=== PATIENT | female | born 1940 | race Caucasian/White ===

== ENCOUNTER → 2017-08-07 13:11 | Outpatient (CLI) | payer MEDICARE, SELFPAY ==
[2017-08-07 12:17] LABS: BUN 26 mg/dL (7-18); Creatinine, Serum 1.13 mg/dL (0.55-1.02); EST Glomerular Filtration Rate 50 mL/min (>60); Glucose 80 mg/dL (70-110)
[2017-08-07 12:18] LABS: Anion Gap 8 (5-15); Calcium,Total 8.8 mg/dL (8.5-10.1); Chloride 102 mmol/L (98-107); Est Glom Filt Rate - Afr Amer 60 mL/min (>60); Potassium 4.2 mmol/L (3.5-5.1); Sodium Level 139 mmol/L (136-145)
== END ==
PROVIDERS: Family Provider Internal Medicine; PCP Internal Medicine; Visit Provider Internal Medicine
DX: I42.9 Cardiomyopathy, unspecified (principal)
CPT/HCPCS: 80048

== ENCOUNTER → 2017-10-14 09:16 | Outpatient (CLI) | payer MEDICARE, SELFPAY ==
--- NOTE | 2017-10-14 09:18 | HPBI_ITS ---
MAMMOGRAPHY - BILATERAL SCREENING REASON FOR EXAM: Female, 77 years old. Routine annual screening examination. PERTINENT HISTORY: Sister with breast cancer. TECHNIQUE: Digital bilateral breast carlos (3D mammographic acquisition) in the CC and MLO projections. 2-D mediolateral oblique (MLO) and craniocaudad (CC) views of both breasts were obtained. CAD: Full Field Digital Mammography with Computer Added Detection was performed. COMPARISON: Comparison is made with prior study dated September 26, 2016 and July 09, 2012. FINDINGS: Breast Composition: There are scattered areas of fibroglandular density. There are no dominant masses or suspicious calcifications. Once again, a pacemaker battery pack is seen in the left axillary region. No other significant abnormalities are identified. There has been no significant change since the prior study. HPBI/SCREENING MAMM (CAD), BILAT IMPRESSION: Stable bilateral screening mammogram. Yearly follow-up mammogram recommended. (A) ASSESSMENT CATEGORY: BIRADS Category 2: Benign. A letter regarding these results will be sent to the patient by the facility within 30 days. Approximately 10% of breast cancers are not detected by mammography. A normal mammogram should not delay biopsy of a clinically suspicious abnormality. [id number] Electronically Signed: Ed Fink MD at 11:10 EST Tel [phone], Service support ,
== END ==
PROVIDERS: Family Provider Internal Medicine; PCP Internal Medicine; Visit Provider Internal Medicine
DX: Z12.31 Encounter for screening mammogram for malignant neoplasm of breast (principal); Z80.3 Family history of malignant neoplasm of breast
CPT/HCPCS: 77063; 77067

== ENCOUNTER → 2017-10-27 09:50 | Outpatient (CLI) | payer MEDICARE, SELFPAY ==
--- NOTE | 2017-10-27 09:52 | VDLE_ITS ---
Reason For Study: F/U LLE DVT RIGHT LEFT CFV is compressible, spontaneous, phasic, CFV and FV are partially compressible with competent and demonstrates normal bright intraluminal echoes consistant with augmentation. chronic clot Procedure GSV harvested. Exam performed in department. POP V is compressible, spontaneous, phasic, A preliminary report was called and/or faxed competent and demonstrates normal to Dr. Martin. augmentation. T/P Trunk is compressible. PTV is compressible. LT PerV is compressible. Interpretation Summary Chronic deep venous thrombosis left common femoral and femoral veins. Harvested left great saphenous vein. Normal flow patterns right common femoral vein. Ordering Physician: Minerva Martin Referring Physician: Minerva Martin Performed By: Sheridan Acuna RVT
[2017-10-27 14:31] LABS: Albumin, Serum 4.1 g/dL (3.2-5.0); BUN 43 mg/dL (7-18); BUN/Creat Ratio 28.3 RATIO (10-20); Creatinine, Serum 1.52 mg/dL (0.55-1.02); EST Glomerular Filtration Rate 35 mL/min (>60); Est Glom Filt Rate - Afr Amer 43 mL/min (>60); Globulin 4.4 g/dL (2.2-4.2); Glucose 91 mg/dL (74-106); Protein, Total 8.5 g/dL (6.4-8.2); Uric Acid 10.9 mg/dL (2.6-6.0)
[2017-10-27 14:32] LABS: ALB/GLOB Ratio 0.9 RATIO (0.9-2.4); AST(SGOT) 28 U/L (15-37); Alanine Aminotransfer ALT/SGPT 23 U/L (13-56); Alkaline Phosphatase 79 U/L (45-117); Anion Gap 8 (5-15); Calcium,Total 9.6 mg/dL (8.5-10.1); Chloride 95 mmol/L (98-107); Potassium 3.6 mmol/L (3.5-5.1); Sodium Level 136 mmol/L (136-145)
== END ==
PROVIDERS: Family Provider Internal Medicine; PCP Internal Medicine; Visit Provider Internal Medicine
DX: I82.422 Acute embolism and thrombosis of left iliac vein (principal); E87.6 Hypokalemia
CPT/HCPCS: 36415; 80053; 84100; 84550; 93971

== ENCOUNTER → 2018-03-19 15:16 | Outpatient (CLI) | payer MEDICARE, SELFPAY | PROVIDERS: Family Provider Internal Medicine; PCP Internal Medicine; Visit Provider Nurse Practitioner Acute Care | DX: G47.33 Obstructive sleep apnea (adult) (pediatric) (principal) | CPT/HCPCS: 98960; G0463 ==

== ENCOUNTER 2018-06-18 10:49 | Inpatient (IN) | payer OTHER, MEDICARE, SELFPAY ==
[2018-06-18] VITALS (20 sets, daily range): BP systolic 55–115; BP diastolic 36–80; PULSE 77–95; RESP 10–35; TEMP 36.3–36.5; O2SAT 93–100; BMI 25.1; BMI 29.4
--- NOTE | 2018-06-18 08:25 | THRO_PTH ---
PATIENT: IRIS DAVENPROT LOC: [facility] U#:[id number] AGE/SX: 78/F ROOM: [facility] RE06/18/[address]: Dr. Nerissa Bhat MD : [id number] BED: 1 DIS: 06/23/2018 SPEC #: [id number] RECD: 06/19/18 09:01 STATUS: REYES CLAY #: [id number] SELENA: 06/18/18 08:[address]: Jalil Ferreira DEPT: SURGICAL PATHOLOGY RECD BY: Jabier Biggs ENTERED: 06/19/18 09:30 SP TYPE: THROMBUS OTHR DR: MD Dr. Minerva Wall MD Dr. Derek Brown, DO Dr. David Kittoe, MD Dr. James A Slaby, MD Tissues: BLOOD CLOT, NOS Procedures: Surgery Specimen Level III Comments: @ Ordering doctor for SUIII edited from to @ by KATHLEEN at 06/19/18 1414 @ Submitting doctor edited from to @ by RGOOD at 06/19/18 1414 HEADER OPERATION: Surgical preparation right knee with incision and drainage PRE-OP DIAGNOSIS: Hematoma right knee TISSUE SUBMITTED: Hematoma right knee MICROSCOPIC DIAGNOSIS Hematoma right knee: Skin with underlying tissue with blood clot and separate blood clots, clinical hematoma right knee. ELLA:tyrese 06/22/18 MICROSCOPIC DESCRIPTION Slides are reviewed. GROSS DESCRIPTION Received is one container labeled with the patient name and designated hematoma right knee. The specimen consists of multiple pieces of skin with underlying tissue and blood clots that in aggregate measure 15 x 4 x 4 cm. Some of the pieces of skin showed blood clots in the deeper portion of the tissue. No mass lesion is identified. Locomotive Switch Operator sections are submitted in 2 cassettes. / ELLA:tyrese 06/19/18 TC: 5 CPT:79317
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
[2018-06-18 11:38] LABS: International Normalized Ratio 1.4; Prothrombin Time (Protime)PT. 17.1 SECONDS (11.7-14.9)
[2018-06-18 11:39] LABS: Partial Thromboplast Time 27.7 Seconds (24.1-36.2)
[2018-06-18 11:41] LABS: Absolute Lymphocyte Count 1.12 X10^3/ul (0.83-4.51); Absolute Neutrophil Count 6.3 X10^3/uL (2.0-7.7); Basophil# 0.04 X10^3/uL; Basophil% 0.5 % (0-1); Eosinophil# 0.38 X10^3/uL; Eosinophils% 4.5 % (0-5); Hematocrit 39.6 % (37-47); Hemoglobin 12.8 g/dl (12.0-15.0); Lymphocyte # 1.12 X10^3/ul (4.0); Lymphocyte % 13.1 % (19-41); Mean Corp Hgb Conc 32.3 g/gl (32-36); Mean Corpuscular Hgb 32.2 pg (27.0-32.0); Mean Corpuscular Volume 99.7 fL (81-99); Mean Platelet Vol. 10.2 fl (6.2-12.0); Monocyte# 0.58 X10^3/uL; Monocyte% 6.8 % (0-10); Neutrophil % 73.9 % (47-70); POSITIVE COUNT NO; POSITIVE DIFFERENTIAL NO; POSITIVE MORPHOLOGY NO; Platelet Count 234 K/mm3 (150-450); RBC Distribution Width CV 14.9 % (11.6-14.6); RBC Distribution Width SD 53.1 fl (35.1-43.9); Red Blood Count 3.97 M/mm3 (4.2-5.4); White Blood Count 8.5 K/mm3 (4.4-11.0)
[2018-06-18 11:45] LABS: AST(SGOT) 30 U/L (15-37); Alanine Aminotransfer ALT/SGPT 26 U/L (13-56); Albumin, Serum 3.7 g/dL (3.2-5.0); Alkaline Phosphatase 78 U/L (45-117); Anion Gap 7 (5-15); BUN 54 mg/dL (7-18); BUN/Creat Ratio 31.2 RATIO (10-20); Bilirubin, Direct 0.14 mg/dL (0.00-0.30); Chloride 94 mmol/L (98-107); Creatinine, Serum 1.73 mg/dL (0.55-1.02); EST Glomerular Filtration Rate 30 mL/min (>60); Est Glom Filt Rate - Afr Amer 37 mL/min (>60); Estimated Creatinine Clearance 29.92 ml/min; Globulin 4.3 g/dL (2.2-4.2); Glucose 113 mg/dL (74-106); Potassium 3.3 mmol/L (3.5-5.1); Sodium Level 136 mmol/L (136-145)
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
[2018-06-18] MEDS: 0.9% Normal Saline 1,000 ML 999 ML IV (12:25)
[2018-06-18] MEDS: fentaNYL 100 MCG/2 ML Ampul 50 MCG IV ×3 (12:25→14:24)
[2018-06-18] MEDS: Ondansetron 4 MG/2 ML Vial IV (12:25)
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
--- NOTE | 2018-06-18 15:55 | NURSING ---
PCU WHITE RIB FXS, KNEE HEMATOMA
--- NOTE | 2018-06-18 16:40 | NURSING ---
SURGERY WITH DR FAULKNER
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
--- NOTE | 2018-06-18 16:43 | ED.RN ---
REPORT GIVEN TO JOSSE LARA. APOLOGIZED FOR PRE-OP NOT BEING COMPLETED.
[2018-06-18] MEDS: Cefazolin 2 GM in 0.9% Normal Saline 100 ML IV (18:01)
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
[2018-06-18] MEDS: Propofol 10MG/Ml 1,000 MG/100 ML Bottle 10.236 MG CONT INF (19:16)
[2018-06-18 19:45] LABS: Base Excess 9 mmol/L (-2 to +2); Bicarbonate 31.2 mmol/L (22-26); Blood Gas Specimen Type ALINE; FI02 50; Mode A-C; O2 Delivery Device Vent; PEEP 5; PO2 143 mmHG (75-100); RR 10; SITE OTHER; SO2 99 % (95-99); Time Given 1930; Total Carbon Dioxide 32 mmol/L; Vt 600; pCO2 36.5 mmHg (35-45); pH 7.54 (7.35-7.45)
[2018-06-18] MEDS: 0.9% Normal Saline 1,000 ML 75 ML IV (19:50)
--- NOTE | 2018-06-18 20:25 | RAD_ITS ---
STUDY: X-RAY CHEST REASON FOR EXAM: Female, 78 years old. Line placement. TECHNIQUE: Single AP portable view of the chest. COMPARISON: 03/31/2017. FINDINGS: There is an endotracheal tube terminating 3.4 cm above the fab. Moderate lung volumes. Atelectasis or infiltrate seen in both lung bases, worse on the left. Probable small left pleural effusion. Sternal cerclage wires and vascular clips are present from a prior sternotomy and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 bypass graft procedure (CABG). Normal heart size. Pacemaker leads terminate in the right ventricle. Normal mediastinum and juana. Normal visualized pulmonary arteries. Normal visualized aortic arch and descending thoracic aorta. Normal visualized thoracic spine. Normal visualized ribs, clavicles, and shoulders. There is no demonstrated abnormality of the visualized soft tissue structures of the upper abdomen. RAD/CXR for Line Placement IMPRESSION: Endotracheal tube in satisfactory position. Moderate lung volumes with atelectasis or infiltrate in both lung bases worse on the left and with a small left pleural effusion. Electronically Signed: Mele Brown MD at 21:14 EST , Service support ,
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
--- NOTE | 2018-06-18 20:38 | EKG12_ITS ---
Test Reason : ADM EKG Blood Pressure : / mmHG Vent. Rate : 090 BPM Atrial Rate : 090 BPM P-R Int : 246 ms QRS Dur : 132 ms QT Int : 424 ms P-R-T Axes : 071 -10 150 degrees QTc Int : 518 ms Sinus rhythm with 1st degree A-V block with occasional Premature ventricular complexes Non-specific intra-ventricular conduction block T wave abnormality, consider inferior ischemia T wave abnormality, consider anterolateral ischemia Abnormal ECG When compared with ECG of 31-MAR-2017 01:24, Premature ventricular complexes are now Present MA interval has increased T wave inversion now evident in Inferior leads T wave inversion now evident in Anterior leads Confirmed by OLY COTTO ([id number]), assignment desk editor CAROLEE MARIEE ([id number]) on 06/22/2018 2:54:43 PM Referred By: Jalil Ferreira Confirmed By:OLY COTTO
[2018-06-18 20:45] LABS: Magnesium 2.5 mg/dL (1.6-2.6); T4 Free Direct 1.53 ng/dL (0.76-1.46); Thyroid Stim Hormone (TSH) 2.48 uIU/mL (0.358-3.74)
[2018-06-18] MEDS: Hydrocortisone Sod Succinate 100 MG/2 ML Vial IV (20:47)
[2018-06-18] MEDS: fentaNYL drip 100 ML 2.5 MCG IV (20:55)
[2018-06-18 21:09] LABS: Hematocrit 31.9 % (37-47); Hemoglobin 10.4 g/dl (12.0-15.0)
--- NOTE | 2018-06-18 22:13 | NURSING ---
Received written order from Dr. Dennis to start propofol gtt at 20 mcg/kg/min with no titration parameters. Propofol started at 1916 at 20 mcg/kg/min, patient became hypotensive. Order was received from Dr. Albarado at 1932 to stop the propofol, and may resume when hypotension resolves, see med titration orders.
[2018-06-18 22:47] LABS: CPK Total, Creatine Kinase 724 U/L (26-192); Triglycerides 80 mg/dL
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
[2018-06-19] VITALS (26 sets, daily range): BP systolic 79–131; BP diastolic 47–105; PULSE 85–99; RESP 10–28; TEMP 36.4–37.1; O2SAT 94–100
[2018-06-19 05:43] LABS: Anion Gap 15 (5-15); BUN 51 mg/dL (7-18); BUN/Creat Ratio 30.2 RATIO (10-20); Calcium,Total 8.4 mg/dL (8.5-10.1); Chloride 102 mmol/L (98-107); Creatinine, Serum 1.69 mg/dL (0.55-1.02); EST Glomerular Filtration Rate 31 mL/min (>60); Est Glom Filt Rate - Afr Amer 38 mL/min (>60); Estimated Creatinine Clearance 27.54 ml/min; Glucose 156 mg/dL (74-106); Sodium Level 140 mmol/L (136-145)
--- NOTE | 2018-06-19 05:55 | EKG12_ITS ---
Test Reason : AM EKG Blood Pressure : / mmHG Vent. Rate : 095 BPM Atrial Rate : 054 BPM P-R Int : 000 ms QRS Dur : 140 ms QT Int : 538 ms P-R-T Axes : 000 -04 085 degrees QTc Int : 676 ms Normal sinus rhythm with Premature ventricular complexes Left atrial enlargement Non-specific intra-ventricular conduction block Nonspecific T wave abnormality Abnormal ECG When compared with ECG of 18-JUN-2018 20:13, MANUAL COMPARISON REQUIRED, DATA IS UNCONFIRMED Confirmed by OLY COTTO ([id number]), non linear editor CAROLEE MARIEE ([id number]) on 06/22/2018 2:55:56 PM Referred By: Jalil Ferreira Confirmed By:OLY COTTO
[2018-06-19 05:59] LABS: Absolute Lymphocyte Count 0.58 X10^3/ul (0.83-4.51); Absolute Neutrophil Count 8.7 X10^3/uL (2.0-7.7); Basophil# 0.01 X10^3/uL; Basophil% 0.1 % (0-1); Hematocrit 30.5 % (37-47); Hemoglobin 10.2 g/dl (12.0-15.0); Lymphocyte # 0.58 X10^3/ul (4.0); Mean Corp Hgb Conc 33.4 g/gl (32-36); Mean Corpuscular Hgb 32.9 pg (27.0-32.0); Mean Corpuscular Volume 98.4 fL (81-99); Mean Platelet Vol. 10.2 fl (6.2-12.0); Monocyte# 0.36 X10^3/uL; Monocyte% 3.7 % (0-10); Neutrophil # 8.73 X10^3/uL (2.7-7.7); Neutrophil % 89.9 % (47-70); Platelet Count 202 K/mm3 (150-450); RBC Distribution Width CV 14.7 % (11.6-14.6); RBC Distribution Width SD 49.9 fl (35.1-43.9); White Blood Count 9.7 K/mm3 (4.4-11.0)
[2018-06-19 06:02] LABS: Differential Indicated SCAN CRITERIA MET; POSITIVE COUNT NO; POSITIVE DIFFERENTIAL YES; POSITIVE MORPHOLOGY NO
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
--- NOTE | 2018-06-19 06:51 | NURSING ---
Patient extubated via respiratory therapist at 0640, fentanyl, propofol, and restraints D/C'd, 2L NC placed, patient tolerating well.
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
[2018-06-19] MEDS: HYDROcodone Bitartrate/Apap 5/325 Tablet PO ×4 (08:08→21:51)
[2018-06-19] MEDS: Multivitamins,Therapeutic Tablet 1 TABLET PO (08:08)
[2018-06-19] MEDS: Fluticasone 0.05% 1 SPRAY NASAL.SRY 2 SPRAY NASAL (09:44)
[2018-06-19] MEDS: Citalopram 20 MG Tablet PO (09:44)
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
--- NOTE | 2018-06-19 12:15 | CASEMGMT ---
RN MICHAEL said patient and family would like placement. MERCEDES spoke with patient, her , son, and daughter. It was decided they would like [facility]. MERCEDES spoke with [facility]a and they would have a bed available pending insurance approval. MERCEDES explained patient will stay at [facility] on acute side until her insurance approves her to go to TCU. MERCEDES obtained patient's son and daughter's phone numbers as they are from out of town. Patient's daughter is Dinorah and she will be here all next week. She is from [place] and her number is [phone]. Patient's son's name is Cecil. He will be here this weekend, gone next week, but then back the week after next. He is from [place] and his number is [phone]. Plan: [facility] pending insurance approval. Giulia WALLACE
--- NOTE | 2018-06-19 14:21 | NURSING ---
wound photo: right knee (anterior view)
--- NOTE | 2018-06-19 14:21 | NURSING ---
wound photo: right knee (medial view)
[2018-06-19] MEDS: Ketorolac 15 MG/ML Vial IV (16:20)
[2018-06-19] MEDS: 0.9% NaCl Peripheral Flush Adult/Peds IV (16:20)
--- NOTE | 2018-06-19 21:09 | CPS ---
Patient refuse will have family bring in home CPAP tomorrow
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
[2018-06-19] MEDS: Pravastatin 40 MG Tablet PO (21:52)
[2018-06-19] MEDS: Carvedilol 6.25 MG Tablet PO (21:52)
[2018-06-19] MEDS: BRIMONIDINE 0.15% 5 ML Bottle 1 DRP EACH EYE (21:52)
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
[2018-06-19] MEDS: Cefazolin 1 GM/50 ML BAG IV (23:17)
[2018-06-19] MEDS: 0.9% Normal Saline 1,000 ML 999 ML IV (23:26)
[2018-06-20] VITALS (22 sets, daily range): BP systolic 81–105; BP diastolic 48–65; PULSE 65–92; RESP 18; TEMP 36.4–36.8; O2SAT 92–99
[2018-06-20] MEDS: 0.9% Normal Saline 1,000 ML 125 ML IV ×2 (00:34→08:29)
[2018-06-20] MEDS: BRIMONIDINE 0.15% 5 ML Bottle 1 DRP EACH EYE ×2 (05:44→16:38)
[2018-06-20] MEDS: Cefazolin 1 GM/50 ML BAG IV ×3 (05:44→22:59)
[2018-06-20 06:57] LABS: Hematocrit 25.7 % (37-47); Mean Corp Hgb Conc 31.1 g/gl (32-36); Mean Corpuscular Hgb 32.5 pg (27.0-32.0); Mean Corpuscular Volume 104.5 fL (81-99); Mean Platelet Vol. 10.3 fl (6.2-12.0); Platelet Count 155 K/mm3 (150-450); RBC Distribution Width SD 58.2 fl (35.1-43.9); Red Blood Count 2.46 M/mm3 (4.2-5.4); White Blood Count 14.9 K/mm3 (4.4-11.0)
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
[2018-06-20 06:58] LABS: Scan Indicated on CBC? Y/N NO
[2018-06-20 07:22] LABS: Anion Gap 9 (5-15); BUN 60 mg/dL (7-18); BUN/Creat Ratio 30.6 RATIO (10-20); Calcium,Total 7.5 mg/dL (8.5-10.1); Chloride 105 mmol/L (98-107); Creatinine, Serum 1.96 mg/dL (0.55-1.02); EST Glomerular Filtration Rate 26 mL/min (>60); Est Glom Filt Rate - Afr Amer 32 mL/min (>60); Estimated Creatinine Clearance 23.75 ml/min; Glucose 106 mg/dL (74-106); Magnesium 2.9 mg/dL (1.6-2.6); Potassium 4.2 mmol/L (3.5-5.1); Prealbumin 16.3 mg/dL (20.0-40.0); Sodium Level 139 mmol/L (136-145)
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
[2018-06-20] MEDS: HYDROcodone Bitartrate/Apap 5/325 Tablet PO ×4 (08:29→22:59)
[2018-06-20] MEDS: Fluticasone 0.05% 1 SPRAY NASAL.SRY 2 SPRAY NASAL (08:30)
[2018-06-20] MEDS: Citalopram 20 MG Tablet PO (08:32)
[2018-06-20] MEDS: Multivitamins,Therapeutic Tablet 1 TABLET PO (08:32)
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
[2018-06-20 11:42] LABS: Hematocrit 24.6 % (37-47); Hemoglobin 7.9 g/dl (12.0-15.0)
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
[2018-06-20] MEDS: Polyethylene Glycol 3350 17 GM PACKET PO (17:13)
[2018-06-20] MEDS: 0.9% NaCl Peripheral Flush Adult/Peds IV ×2 (17:13→22:59)
[2018-06-20] MEDS: Furosemide 40 MG/4 ML Vial IV (17:13)
[2018-06-20 18:12] LABS: Hematocrit 29.2 % (37-47); Hemoglobin 9.5 g/dl (12.0-15.0)
[2018-06-20] MEDS: Magnesium Hydroxide 30 ML UDC PO (18:22)
[2018-06-20] MEDS: Pravastatin 40 MG Tablet PO (22:59)
[2018-06-20 23:51] LABS: Hematocrit 25.8 % (37-47); Hemoglobin 8.4 g/dl (12.0-15.0)
[2018-06-21] VITALS (15 sets, daily range): BP systolic 95–105; BP diastolic 52–61; PULSE 77–95; RESP 18; TEMP 36.6–36.8; O2SAT 93–98
[2018-06-21] MEDS: Amitriptyline 25 MG Tablet 50 MG PO (00:23)
[2018-06-21] MEDS: BRIMONIDINE 0.15% 5 ML Bottle 1 DRP EACH EYE ×2 (05:55→14:34)
[2018-06-21] MEDS: Cefazolin 1 GM/50 ML BAG IV ×3 (05:57→23:08)
[2018-06-21 06:34] LABS: Hematocrit 25.2 % (37-47); Hemoglobin 8.1 g/dl (12.0-15.0); Mean Corp Hgb Conc 32.1 g/gl (32-36); Mean Corpuscular Hgb 31.8 pg (27.0-32.0); Mean Corpuscular Volume 98.8 fL (81-99); Platelet Count 162 K/mm3 (150-450); RBC Distribution Width CV 18.3 % (11.6-14.6); RBC Distribution Width SD 65.6 fl (35.1-43.9); Red Blood Count 2.55 M/mm3 (4.2-5.4)
[2018-06-21 06:37] LABS: Scan Indicated on CBC? Y/N YES- FLAGS NOTED
[2018-06-21 06:42] LABS: BUN 47 mg/dL (7-18); Creatinine, Serum 1.32 mg/dL (0.55-1.02); Estimated Creatinine Clearance 35.26 ml/min; Glucose 94 mg/dL (74-106)
[2018-06-21 06:43] LABS: Anion Gap 9 (5-15); BUN/Creat Ratio 35.6 RATIO (10-20); Calcium,Total 7.8 mg/dL (8.5-10.1); Chloride 107 mmol/L (98-107); EST Glomerular Filtration Rate 42 mL/min (>60); Est Glom Filt Rate - Afr Amer 50 mL/min (>60); Potassium 4.4 mmol/L (3.5-5.1); Sodium Level 141 mmol/L (136-145)
[2018-06-21] MEDS: HYDROcodone Bitartrate/Apap 5/325 Tablet PO ×2 (07:46→19:59)
[2018-06-21] MEDS: Polyethylene Glycol 3350 17 GM PACKET PO (07:48)
[2018-06-21] MEDS: Carvedilol 6.25 MG Tablet PO ×2 (07:48→22:21)
[2018-06-21] MEDS: Multivitamins,Therapeutic Tablet 1 TABLET PO (07:48)
[2018-06-21] MEDS: Citalopram 20 MG Tablet PO (07:49)
[2018-06-21] MEDS: Furosemide 40 MG Tablet PO ×2 (07:50→17:09)
[2018-06-21] MEDS: metOLazone 5 MG Tablet PO (07:51)
--- NOTE | 2018-06-21 08:19 | NURSING ---
PT VERY TEARFUL THIS AM. STATES SHE JUST WANTS TO FEEL BETTER. STILL HAVING PAIN ON LEFT SIDE. MEDICATED W/ PAIN MEDICATION. PT LOOKING FORWARD TO WORKING WITH THERAPY. WILL CONTINUE TO MONITOR.
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
[2018-06-21] MEDS: Magnesium Citrate 300 ML 150 ML PO (10:23)
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
[2018-06-21] MEDS: Acetaminophen 325 MG Tablet 650 MG PO ×2 (13:20→22:29)
[2018-06-21] MEDS: Silver Nitrate (BKC) 1 EACH TOPICAL (15:47)
[2018-06-21] MEDS: HYDROmorphone 1 MG/ML Syringe IV (15:47)
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
[2018-06-21] MEDS: Pravastatin 40 MG Tablet PO (22:21)
--- NOTE | 2018-06-21 23:40 | CPS ---
Pt wears pap hs at home and family brought machine in. Pt refusing to wear tonight.
[2018-06-22] VITALS (15 sets, daily range): BP systolic 86–111; BP diastolic 49–70; PULSE 70–126; RESP 18; TEMP 36.3–36.9; O2SAT 82–99
[2018-06-22] MEDS: HYDROcodone Bitartrate/Apap 5/325 Tablet PO ×5 (00:01→22:47)
[2018-06-22] MEDS: Cefazolin 1 GM/50 ML BAG IV ×3 (05:31→22:48)
[2018-06-22 06:19] LABS: Mean Corpuscular Hgb 32.1 pg (27.0-32.0); Mean Corpuscular Volume 100.4 fL (81-99); Mean Platelet Vol. 9.8 fl (6.2-12.0); Platelet Count 178 K/mm3 (150-450); RBC Distribution Width SD 64.6 fl (35.1-43.9); Red Blood Count 2.49 M/mm3 (4.2-5.4); White Blood Count 14.2 K/mm3 (4.4-11.0)
[2018-06-22 06:31] LABS: Scan Indicated on CBC? Y/N NO
[2018-06-22 06:38] LABS: Anion Gap 7 (5-15); BUN 37 mg/dL (7-18); BUN/Creat Ratio 29.4 RATIO (10-20); Calcium,Total 7.9 mg/dL (8.5-10.1); Chloride 104 mmol/L (98-107); Creatinine, Serum 1.26 mg/dL (0.55-1.02); EST Glomerular Filtration Rate 44 mL/min (>60); Est Glom Filt Rate - Afr Amer 53 mL/min (>60); Estimated Creatinine Clearance 36.94 ml/min; Glucose 104 mg/dL (74-106); Potassium 3.9 mmol/L (3.5-5.1); Sodium Level 140 mmol/L (136-145)
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
[2018-06-22] MEDS: Citalopram 20 MG Tablet PO (10:28)
[2018-06-22] MEDS: Multivitamins,Therapeutic Tablet 1 TABLET PO (10:28)
[2018-06-22] MEDS: Fluticasone 0.05% 1 SPRAY NASAL.SRY 2 SPRAY NASAL (10:29)
[2018-06-22] MEDS: Furosemide 40 MG Tablet PO ×2 (10:29→18:40)
[2018-06-22] MEDS: BRIMONIDINE 0.15% 5 ML Bottle 1 DRP EACH EYE ×2 (13:24→22:50)
[2018-06-22] MEDS: oxyCODONE 5 MG Tablet PO (13:53)
[2018-06-22] MEDS: Lidocaine 5% Patch 1 PATCH TOPICAL (15:42)
--- NOTE | 2018-06-22 16:12 | NURSING ---
wound photo: right anterior knee
--- NOTE | 2018-06-22 16:12 | NURSING ---
wound photo: right medial knee
--- NOTE | 2018-06-22 16:57 | CASEMGMT ---
Received insurance approval for patient to go to TCU, but she is not medically ready. Plan: [facility] when medically ready Giulia WALLACE
--- NOTE | 2018-06-22 18:11 | EKG12_ITS ---
Test Reason : RHYTHM CHANGE Blood Pressure : / mmHG Vent. Rate : 139 BPM Atrial Rate : 054 BPM P-R Int : 000 ms QRS Dur : 126 ms QT Int : 352 ms P-R-T Axes : 000 -01 175 degrees QTc Int : 535 ms Atrial fibrillation with rapid ventricular response with premature ventricular or aberrantly conducte d complexes Non-specific intra-ventricular conduction block T wave abnormality, consider inferolateral ischemia Abnormal ECG Confirmed by ADAM TIRADO, LAUREN ([id number]), magazine editor CAROLEE MARIEE ([id number] on 06/29/2018 2:26:58 PM Referred By: Jalil Ferreira Confirmed By:LAUREN MEDINA MD
[2018-06-22] MEDS: Carvedilol 6.25 MG Tablet PO (18:43)
[2018-06-22] MEDS: Hydrocortisone 10 MG Tablet 20 MG PO (20:12)
[2018-06-22] MEDS: Gabapentin 100 MG Capsule PO (22:47)
[2018-06-22] MEDS: Amitriptyline 25 MG Tablet 50 MG PO (22:49)
[2018-06-22] MEDS: Pravastatin 40 MG Tablet PO (22:49)
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
[2018-06-23] VITALS (10 sets, daily range): BP systolic 89–112; BP diastolic 46–64; PULSE 77–107; RESP 16–18; TEMP 36.6–36.7; O2SAT 95–100
[2018-06-23] MEDS: BRIMONIDINE 0.15% 5 ML Bottle 1 DRP EACH EYE (05:39)
[2018-06-23] MEDS: Levothyroxine 88 MCG Tablet PO (05:39)
[2018-06-23] MEDS: Cefazolin 1 GM/50 ML BAG IV (05:40)
[2018-06-23] MEDS: HYDROcodone Bitartrate/Apap 5/325 Tablet PO ×2 (05:40→14:00)
[2018-06-23 06:25] LABS: Absolute Lymphocyte Count 1.34 X10^3/ul (0.83-4.51); Absolute Neutrophil Count 9.9 X10^3/uL (2.0-7.7); Basophil# 0.03 X10^3/uL; Basophil% 0.2 % (0-1); Eosinophil# 0.41 X10^3/uL; Eosinophils% 3.1 % (0-5); Hematocrit 25.2 % (37-47); Hemoglobin 8.1 g/dl (12.0-15.0); Lymphocyte # 1.34 X10^3/ul (4.0); Lymphocyte % 10.3 % (19-41); Mean Corp Hgb Conc 32.1 g/gl (32-36); Mean Corpuscular Hgb 32.5 pg (27.0-32.0); Mean Corpuscular Volume 101.2 fL (81-99); Mean Platelet Vol. 9.1 fl (6.2-12.0); Monocyte# 1.29 X10^3/uL; Monocyte% 9.9 % (0-10); Neutrophil # 9.88 X10^3/uL (2.7-7.7); Platelet Count 203 K/mm3 (150-450); RBC Distribution Width CV 17.5 % (11.6-14.6); Red Blood Count 2.49 M/mm3 (4.2-5.4)
[2018-06-23 06:27] LABS: NRBC Flagged by Analyzer 0.8 % (0-5); POSITIVE COUNT NO; POSITIVE DIFFERENTIAL NO; POSITIVE MORPHOLOGY NO
[2018-06-23 06:50] LABS: Anion Gap 10 (5-15); BUN 35 mg/dL (7-18); BUN/Creat Ratio 27.3 RATIO (10-20); Calcium,Total 7.9 mg/dL (8.5-10.1); Chloride 100 mmol/L (98-107); Creatinine, Serum 1.28 mg/dL (0.55-1.02); EST Glomerular Filtration Rate 43 mL/min (>60); Est Glom Filt Rate - Afr Amer 52 mL/min (>60); Estimated Creatinine Clearance 36.36 ml/min; Glucose 109 mg/dL (74-106); Magnesium 2.8 mg/dL (1.6-2.6); Potassium 3.5 mmol/L (3.5-5.1); Sodium Level 138 mmol/L (136-145)
[2018-06-23] MEDS: Albuterol 2.5 MG/3 ML VIAL.NEB. INHALATION ×2 (07:18→13:18)
[2018-06-23] MEDS: Budesonide Respules 0.5 MG/2 ML AMPUL.NEB. INHALATION (07:19)
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
[2018-06-23] MEDS: Multivitamins,Therapeutic Tablet 1 TABLET PO (08:55)
[2018-06-23] MEDS: Carvedilol 3.125 MG TABLET PO (08:56)
[2018-06-23] MEDS: Furosemide 40 MG Tablet PO (08:57)
[2018-06-23] MEDS: Citalopram 20 MG Tablet PO (08:58)
[2018-06-23] MEDS: Iron Polysaccharide Complex 150 MG CAPSULE PO (09:13)
[2018-06-23] MEDS: Lidocaine 5% Patch 1 PATCH TOPICAL (09:14)
[2018-06-23] MEDS: Hydrocortisone 10 MG Tablet PO (09:40)
[2018-06-23] MEDS: Gabapentin 100 MG Capsule PO (11:45)
--- NOTE | 2018-06-23 12:03 | TREXTCAR_ITS ---
- Diet 06/19/18 08:16 Diet: Cardiac/Low Cholesterol Is pt able to select menu?: Yes Fluid restriction to less than 1500 cc daily. - Routine Orders/Code Status O2 Liters per Minute: 2 O2 Frequency: Continuous Keep PO Greater than or Equal to (%): 92 Routine Lab Work: CBC, BMP Code Status: Full Code - Wound(s) r KNEE Wound Type: Surgical Incision Left knee Wound Type: Skin Tear right knee (anterior) Wound Type: open surgical wound s/p excision hematoma Dressing Change: KCI wound VAC right knee (medial) Wound Type: open surgical wound s/p excision infected hematoma Dressing Change: KCI wound VAC - Suggestions for Active Care Change Position every (hours): 3 Hours to sit in a chair: 2 Times a day to sit in chair: 3 - Therapies Weight Bearing: Weight bearing as tolerated Physical Therapy: Eval and Treat Occupational Therapy: Eval and Treat - Allergies/Procedures Done in Hospital Allergies/Adverse Reactions: Allergies levofloxacin [Levofloxacin] Allergy (Verified 06/17/18 13:47) Hives warfarin [From Coumadin] Allergy (Verified 06/17/18 13:47) Other torsemide [From Demadex] Adverse Reaction (Intermediate, Verified 06/17/18 13:47) Rash - Type of Care/Length of Stay Estimated LOS: Convalescent Care Less Than 30 days Type of Care Needed: Skilled Rehab Potential: Fair Prognosis: Fair - Additional Orders/Day of Discharge H&P will serve as current which was dated: 06/18/18 Day of Discharge: 06/23/18 - Dietary and Speech Recommendations Dietitian Recommendations/Changes: Recommend diet change to carbohydrate- controlled, low salt d/t PMH. - Follow Up Care Primary Care Physician: Minerva Martin MD [Primary Care Provider] - Please follow up with your Primary Care Physician in: 1 week. Please Follow Up With: Jalil Ferreira MD When: please call his office. Please Follow Up With: Meka Glez When: 1-2 weeks.
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
--- NOTE | 2018-06-23 12:51 | CASEMGMT ---
Social Work Physician states pt is ready for d/c. Pt planning on going to TCU. Met with pt in room and informed that TCU transfer will happen today. Pt with questions regarding heart concerns. SW notified RN to discuss concerns with pt. Phone call to pt corina [place] and informed of transfer to TCU today. Extensive questions about TCU answered. Orders faxed to TCU and VM left with Marcela notifying her that pt will be coming today. Nursing notified that pt can be transferred when ready. Plan: TCU today Jairon ALLEN
--- NOTE | 2018-06-23 13:14 | NURSING ---
Report called to Sasha in TCU. Patient will go into room 16.
== END 2018-06-23 14:24 | disposition skilled nursing facility (03) | DRG 580 ==
LOC: ED 14:38 → PCU 16:05 → ICU 17:27 → PCU 06-19 15:31
PROVIDERS: Family Medicine; Internal Medicine; Internal Medicine Critical Care Medicine; Admitting Provider Family Medicine; Emergency Provider Emergency Medicine; Family Provider Internal Medicine; PCP Internal Medicine; Referring Provider Surgery; Visit Provider Hospitalist
PROC: 0KBQ0ZZ Excision of Right Upper Leg Muscle, Open Approach (ICD-10-PCS; principal; 2018-06-18 08:10)
DX: S80.01XA Contusion of right knee, initial encounter (principal); S22.42XA Multiple fractures of ribs, left side, initial encounter for closed fracture; D62 Acute posthemorrhagic anemia; E27.40 Unspecified adrenocortical insufficiency; I42.9 Cardiomyopathy, unspecified; I96 Gangrene, not elsewhere classified; I13.0 Hypertensive heart and chronic kidney disease with heart failure and stage 1 through stage 4 chronic kidney disease, or unspecified chronic kidney disease; I50.22 Chronic systolic (congestive) heart failure; V49.50XA Passenger injured in collision with unspecified motor vehicles in traffic accident, initial encounter; Y92.410 Unspecified street and highway as the place of occurrence of the external cause; E03.9 Hypothyroidism, unspecified; I48.0 Paroxysmal atrial fibrillation; Z95.810 Presence of automatic (implantable) cardiac defibrillator; Z95.3 Presence of xenogenic heart valve; Z79.01 Long term (current) use of 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s; Z86.718 Personal history of other venous thrombosis and embolism; Z95.828 Presence of other vascular implants and grafts; Z96.653 Presence of artificial knee joint, bilateral; E78.5 Hyperlipidemia, unspecified; G47.33 Obstructive sleep apnea (adult) (pediatric); I27.20 Pulmonary hypertension, unspecified; N18.3 Chronic kidney disease, stage 3 (moderate); I25.10 Atherosclerotic heart disease of native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 without angina pectoris; Z95.1 Presence of aortocoronary bypass graft
CPT/HCPCS: 31720; 36415; 70450; 71045; 71260; 72125; 73560; 74177; 80048; 80076; 82550; 82803; 83735; 84134; 84439; 84443; 84478; 85014; 85018; 85025; 85027; 85610; 85730; 86850; 86900; 86920; 88304; 93005; 94002; 94003; 94640; 94660; 95831; 97110; 97162; 97165; 97530; 97535; 97802; 99284; J7030; J7040; J7120; P9040; Q9967; A4216; J1940; J2405

== ENCOUNTER 2018-06-23 14:20 | Inpatient (IN) | payer OTHER, MEDICARE, SELFPAY ==
[2018-06-23 14:51] VITALS: BP 125/41; PULSE 69; RESP 22; TEMP 36.2; O2SAT 97
--- NOTE | 2018-06-23 14:52 | NURSING ---
PT ARRIVED FROM U VIA BED AT 1420.
[2018-06-23 14:56] VITALS: BMI 28.8
[2018-06-23 15:02] VITALS: BMI 28.8
[2018-06-23 15:53] VITALS: BP 125/41; PULSE 69; RESP 22; TEMP 36.2; O2SAT 97
[2018-06-23] MEDS: Carvedilol 3.125 MG TABLET PO (17:48)
[2018-06-23] MEDS: Hydrocortisone 10 MG Tablet PO (17:48)
[2018-06-23] MEDS: Furosemide 40 MG Tablet PO (17:48)
[2018-06-23] MEDS: Polyethylene Glycol 3350 17 GM PACKET PO (19:37)
[2018-06-23] MEDS: Gabapentin 100 MG Capsule PO (19:37)
[2018-06-23] MEDS: Pravastatin 40 MG Tablet PO (19:37)
[2018-06-23] MEDS: HYDROcodone Bitartrate/Apap 5/325 Tablet PO (19:37)
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
[2018-06-24] MEDS: HYDROcodone Bitartrate/Apap 5/325 Tablet PO ×2 (03:28→10:36)
[2018-06-24 06:04] LABS: Absolute Lymphocyte Count 1.74 X10^3/ul (0.83-4.51); Absolute Neutrophil Count 9.5 X10^3/uL (2.0-7.7); Basophil# 0.03 X10^3/uL; Basophil% 0.2 % (0-1); Eosinophil# 0.83 X10^3/uL; Eosinophils% 6.1 % (0-5); Lymphocyte # 1.74 X10^3/ul (4.0); Lymphocyte % 12.8 % (19-41); Mean Corp Hgb Conc 30.8 g/gl (32-36); Mean Corpuscular Hgb 31.9 pg (27.0-32.0); Mean Corpuscular Volume 103.6 fL (81-99); Mean Platelet Vol. 9.5 fl (6.2-12.0); Monocyte# 1.38 X10^3/uL; Monocyte% 10.1 % (0-10); Neutrophil # 9.54 X10^3/uL (2.7-7.7); Neutrophil % 70.1 % (47-70); Platelet Count 195 K/mm3 (150-450); RBC Distribution Width CV 18.1 % (11.6-14.6); RBC Distribution Width SD 64.2 fl (35.1-43.9); Red Blood Count 2.51 M/mm3 (4.2-5.4); White Blood Count 13.6 K/mm3 (4.4-11.0)
[2018-06-24 06:08] LABS: Absolute Nucleated RBC Count 0.14 10^3/uL (0-5); NRBC Flagged by Analyzer 1.1 % (0-5); POSITIVE COUNT NO; POSITIVE DIFFERENTIAL NO; POSITIVE MORPHOLOGY NO
[2018-06-24] MEDS: Furosemide 40 MG Tablet PO ×2 (06:15→16:59)
[2018-06-24] MEDS: Fluticasone 0.05% 1 SPRAY NASAL.SRY 2 SPRAY NASAL (06:15)
[2018-06-24] MEDS: Lidocaine 5% Patch 1 PATCH TOPICAL (06:16)
[2018-06-24] MEDS: metOLazone 5 MG Tablet PO (06:16)
[2018-06-24] MEDS: Carvedilol 3.125 MG TABLET PO ×2 (06:16→16:58)
[2018-06-24] MEDS: Levothyroxine 88 MCG Tablet PO (06:16)
[2018-06-24] MEDS: Citalopram 20 MG Tablet PO (06:16)
[2018-06-24 06:34] LABS: Anion Gap 7 (5-15); BUN 40 mg/dL (7-18); BUN/Creat Ratio 33.1 RATIO (10-20); Calcium,Total 7.7 mg/dL (8.5-10.1); Chloride 100 mmol/L (98-107); Creatinine, Serum 1.21 mg/dL (0.55-1.02); EST Glomerular Filtration Rate 46 mL/min (>60); Est Glom Filt Rate - Afr Amer 56 mL/min (>60); Estimated Creatinine Clearance 37.03 ml/min; Glucose 86 mg/dL (74-106); Potassium 3.5 mmol/L (3.5-5.1); Sodium Level 136 mmol/L (136-145)
[2018-06-24 07:54] VITALS: O2SAT 96
[2018-06-24] MEDS: Aspirin E.C. 81 MG Tablet PO (08:33)
[2018-06-24] MEDS: Magnesium Oxide 400 MG Tablet PO (08:33)
[2018-06-24] MEDS: Multivitamins,Therapeutic Tablet 1 TABLET PO (08:33)
[2018-06-24] MEDS: Hydrocortisone 10 MG Tablet PO ×2 (08:33→16:59)
[2018-06-24] MEDS: BRIMONIDINE 0.15% 5 ML Bottle 1 DRP EACH EYE ×2 (08:33→17:00)
[2018-06-24] MEDS: Iron Polysaccharide Complex 150 MG CAPSULE PO (08:33)
[2018-06-24] MEDS: Tuberculin,Purif.prot.deriv. 50 TU/ML Vial 5 ML ID (10:51)
[2018-06-24] MEDS: Gabapentin 100 MG Capsule PO (12:27)
--- NOTE | 2018-06-24 12:33 | NURSING ---
pt c/o severe pain in rt inner knee wound. Dr Lan updated, norco ineffective. new order for oxyir prn and tylenol prn
[2018-06-24] MEDS: oxyCODONE 5 MG Tablet 10 MG PO ×2 (13:57→21:07)
[2018-06-24 16:00] VITALS: BP 94/57; PULSE 56; RESP 23; TEMP 36.3; O2SAT 98
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
--- NOTE | 2018-06-24 20:15 | NURSING ---
Dr. Glez, patient's time study technician called to check to see how patient has been doing. She is requesting that patient be a daily weight, that bmp and cbc be done QOD, and that vital signs be checked BID. Also states that she will be in contact with Dr. Lan about patient's medications. Dr. Lan notified of this and is ok with those orders.
[2018-06-24] MEDS: Polyethylene Glycol 3350 17 GM PACKET PO (21:03)
[2018-06-24] MEDS: Pravastatin 40 MG Tablet PO (21:03)
[2018-06-25] MEDS: Citalopram 20 MG Tablet PO (06:30)
[2018-06-25] MEDS: Carvedilol 3.125 MG TABLET PO ×2 (06:30→16:32)
[2018-06-25] MEDS: Levothyroxine 88 MCG Tablet PO (06:30)
[2018-06-25] MEDS: Furosemide 40 MG Tablet PO ×2 (06:30→16:31)
[2018-06-25] MEDS: Lidocaine 5% Patch 1 PATCH TOPICAL (06:31)
[2018-06-25] MEDS: Fluticasone 0.05% 1 SPRAY NASAL.SRY 2 SPRAY NASAL (06:32)
[2018-06-25] MEDS: BRIMONIDINE 0.15% 5 ML Bottle 1 DRP EACH EYE ×2 (06:33→16:32)
[2018-06-25] MEDS: Fluticasone/Salmeterol 232-14 Inhaler 1 PUFF IH ×2 (06:35→20:31)
[2018-06-25 06:38] VITALS: BP 106/65; PULSE 99; RESP 18; TEMP 36.4
[2018-06-25 06:55] VITALS: O2SAT 99
[2018-06-25] MEDS: oxyCODONE 5 MG Tablet 10 MG PO ×3 (07:43→21:26)
[2018-06-25] MEDS: Hydrocortisone 10 MG Tablet PO ×2 (07:45→16:32)
[2018-06-25] MEDS: Multivitamins,Therapeutic Tablet 1 TABLET PO (07:45)
[2018-06-25] MEDS: Aspirin E.C. 81 MG Tablet PO (07:45)
[2018-06-25] MEDS: Iron Polysaccharide Complex 150 MG CAPSULE PO (07:45)
[2018-06-25 08:42] LABS: Pathologist Review Reviewed
--- NOTE | 2018-06-25 11:32 | PCM.PN.RX ---
<МарияrogersyinBen Fuentes - Last Filed: 06/25/18 11:32> Progress Note - Pharmacy Subjective: TCU Admission Objective: Allergies levofloxacin [Levofloxacin] Allergy (Verified 06/17/18 13:47) Hives warfarin [From Coumadin] Allergy (Verified 06/17/18 13:47) Other torsemide [From Demadex] Adverse Reaction (Intermediate, Verified 06/17/18 13:47) Rash Current Medications Generic Name Dose Route Start Last Admin Trade Name Freq PRN Reason Stop Dose Admin Acetaminophen 1,000 mg 06/24/18 12:32 Tylenol PO Q6H PRN PRN MILD PAIN (1-310) Albuterol Sulfate 2.5 mg 06/24/18 18:17 Ventolin Aerosols INHALATION Q6H.RT PRN sob/wheezing Amitriptyline HCl 50 mg 06/23/18 15:01 Elavil PO QHS PRN INSOMNIA Aspirin 81 mg 06/24/18 08:00 06/25/18 07:45 Ecotrin PO 81 mg DAILY@0800 [facility] Administration Brimonidine Tartrate 1 drop 06/24/18 06:00 06/25/18 06:33 Alphagan P 0.15% EACH EYE 1 drop BID [facility] Administration Carvedilol 3.125 mg 06/23/18 18:00 06/25/18 06:30 Coreg PO 3.125 mg BID [facility] Administration Citalopram Hydrobromide 20 mg 06/24/18 06:00 06/25/18 06:30 Celexa PO 20 mg DAILY [facility] Administration Diphenhydramine HCl 25 mg 06/24/18 18:04 Benadryl PO Q6H PRN PRN ITCHING Fluticasone Propionate 2 spray 06/24/18 06:00 06/25/18 06:32 Flonase Nasal [place] NASAL 2 spray DAILY [facility] Administration Furosemide 40 mg 06/23/18 18:00 06/25/18 06:30 Lasix PO 40 mg BID [facility] Administration Gabapentin 100 mg 06/23/18 21:21 06/24/18 12:27 Neurontin PO 100 mg BIDCM PRN Administration neuropathy Hydrocortisone 10 mg 06/23/18 17:00 06/25/18 07:45 Cortef PO 10 mg BIDCM [facility] Administration Levothyroxine Sodium 88 mcg 06/24/18 06:00 06/25/18 06:30 Synthroid PO 88 mcg DAILY [facility] Administration Lidocaine 1 patch 06/24/18 06:00 06/25/18 06:31 Lidoderm Patch TOPICAL 1 patch DAILY [facility] Administration Protocol Lubiprostone 8 mcg 06/23/18 16:22 Amitiza PO QHS PRN Constipation Magnesium Oxide 400 mg 06/24/18 08:00 06/24/18 08:33 Mag-Ox 400 PO 400 mg Q2D [facility] Administration Metolazone 5 mg 06/24/18 06:00 06/24/18 06:16 Zaroxolyn PO 5 mg SUWE [facility] Administration Multivitamins 1 tablet 06/24/18 08:00 06/25/18 07:45 Multivitamin PO 1 tablet DAILYCM [facility] Administration Oxycodone HCl 10 mg 06/24/18 12:33 06/25/18 07:43 Oxyir PO 10 mg Q4H PRN PRN Administration SEVERE PAIN (6-10/10) Polyethylene Glycol 17 gm 06/23/18 22:00 06/24/18 21:03 Miralax PO 17 gm QHS [facility] Administration Polysaccharide Iron Complex 150 mg 06/24/18 08:00 06/25/18 07:45 Ferrex 150 PO 150 mg DAILYCM [facility] Administration Potassium Chloride 20 meq 06/24/18 08:00 06/25/18 07:45 K-Dur PO 20 meq SuTuWeThSa@0800 [facility] Administration Pravastatin Sodium 40 mg 06/23/18 22:00 06/24/18 21:03 Pravachol PO 40 mg QHS [facility] Administration Fluticasone/Salmeterol 1 puff 06/24/18 06:00 06/25/18 06:35 Fluticasone-Salmeterol 232-14 IH 1 puff Q12 [facility] Administration Tuberculin PPD 5 tu 07/01/18 10:00 Tubersol, Aplisol, Ppd ID 07/01/18 10:01 X1 ONE Problem List (Last Updated 06/22/18 @ 10:24 by Nerissa Bhat MD) Debility (Acute) DVT (deep venous thrombosis) (Chronic) Depression (Chronic) Vital Signs Temp Pulse Resp BP Pulse Ox 97.5 F L 99 18 106/65 99 06/25/18 06:38 06/25/18 06:38 06/25/18 06:38 06/25/18 06:38 06/25/18 06:55 Oxygen Flow Rate (L/min) 2 Oxygen Delivery Method Nasal Cannula Weight: 84 kg Body Mass Index (BMI) 28.8 Finger Stick Blood Glucose 146 Sodium 136 mmol/L (136-145) 06/24/18 05:20 Potassium 3.5 mmol/L (3.5-5.1) 06/24/18 05:20 Chloride 100 mmol/L (98-107) 06/24/18 05:20 Carbon Dioxide 29.0 mmol/L (21.0-32.0) 06/24/18 05:20 Anion Gap 7 (5-15) 06/24/18 05:20 BUN 40 mg/dL (7-18) H 06/24/18 05:20 Creatinine 1.21 mg/dL (0.55-1.02) H 06/24/18 05:20 Est GFR (MDRD) Af Amer 56 mL/min (>60) L 06/24/18 05:20 Est GFR (MDRD) Non-Af 46 mL/min (>60) L 06/24/18 05:20 BUN/Creatinine Ratio 33.1 RATIO (10-20) H 06/24/18 05:20 Glucose 86 mg/dL (74-106) 06/24/18 05:20 Assessment/Plan: * 1) Pain APAP for mild pain, oxycodone for severe pain, gabapentin prn, lidocaine patch. Continue to monitor prn medication use, daily pain scores. Gabapentin not indicated/effective for prn use. Consider dc as unnecessary medication or scheduling and titrating to effect. 2) Pulm Advair inhaler, albuterol aerosols prn, fluticasone nsl. Continue to monitor prn medication use, for shortness of breath. 3) CAD/CHF, HLD ASA, carvedilol, furosemide, metolazone, pravastatin, 4) Hypothyroidism Levothyroxine daily. Continue to monitor s/s hyper/hypothyroidism. 5) Nutrition Fe, multivitamin, Mg, KCl. Continue to monitor electrolytes. 6) Adrenal Insufficiency Hydrocortisone twice daily. Continue to monitor clinically. Psychotropic Medications: * 7) Insomnia Amitriptyline at HS prn. Continue to monitor prn medication use, for insomnia. Consider alternate therapy not on BEERS list. 8) Depression Citalopram daily. Continue to monitor s/s depression. Unnecessary Medications: Bowel Regimen: 9) PEG at HS, prn lubiprostone. Continue to monitor prn medication use, for constipation/diarrhea. Date of Note:: 06/25/18 - Provider Comments Provider responsibility: Provider responsible to enter orders to implement recommendations <Farhat Lan Chi - Last Filed: 06/25/18 16:38> Progress Note - Pharmacy Subjective: [] Objective: Allergies levofloxacin [Levofloxacin] Allergy (Verified 06/25/18 14:20) Hives warfarin [From Coumadin] Allergy (Verified 06/25/18 14:20) Other torsemide [From Demadex] Adverse Reaction (Intermediate, Verified 06/25/18 14:20) Rash Current Medications Generic Name Dose Route Start Last Admin Trade Name Freq PRN Reason Stop Dose Admin Acetaminophen 1,000 mg 06/24/18 12:32 06/25/18 16:30 Tylenol PO 1,000 mg Q6H PRN PRN Administration MILD PAIN (1-3/10) Albuterol Sulfate 2.5 mg 06/24/18 18:17 Ventolin Aerosols INHALATION Q6H.RT PRN sob/wheezing Amitriptyline HCl 50 mg 06/23/18 15:01 Elavil PO QHS PRN INSOMNIA Aspirin 81 mg 06/24/18 08:00 06/25/18 07:45 Ecotrin PO 81 mg DAILY@0800 [facility] Administration Brimonidine Tartrate 1 drop 06/24/18 06:00 06/25/18 16:32 Alphagan P 0.15% EACH EYE 1 drop BID [facility] Administration Carvedilol 3.125 mg 06/23/18 18:00 06/25/18 16:32 Coreg PO 3.125 mg BID [facility] Administration Citalopram Hydrobromide 20 mg 06/24/18 06:00 06/25/18 06:30 Celexa PO 20 mg DAILY [facility] Administration Diphenhydramine HCl 25 mg 06/24/18 18:04 06/25/18 13:35 Benadryl PO 25 mg Q6H PRN PRN Administration ITCHING Fluticasone Propionate 2 spray 06/24/18 06:00 06/25/18 06:32 Flonase Nasal [place] NASAL 2 spray DAILY [facility] Administration Furosemide 40 mg 06/23/18 18:00 06/25/18 16:31 Lasix PO 40 mg BID [facility] Administration Gabapentin 100 mg 06/23/18 21:21 06/24/18 12:27 Neurontin PO 100 mg BIDCM PRN Administration neuropathy Hydrocortisone 10 mg 06/23/18 17:00 06/25/18 16:32 Cortef PO 10 mg BIDCM [facility] Administration Levothyroxine Sodium 88 mcg 06/24/18 06:00 06/25/18 06:30 Synthroid PO 88 mcg DAILY [facility] Administration Lidocaine 1 patch 06/24/18 06:00 06/25/18 06:31 Lidoderm Patch TOPICAL 1 patch DAILY [facility] Administration Protocol Lubiprostone 8 mcg 06/23/18 16:22 Amitiza PO QHS PRN Constipation Magnesium Oxide 400 mg 06/24/18 08:00 06/24/18 08:33 Mag-Ox 400 PO 400 mg Q2D [facility] Administration Metolazone 5 mg 06/24/18 06:00 06/24/18 06:16 Zaroxolyn PO 5 mg SUWE [facility] Administration Multivitamins 1 tablet 06/24/18 08:00 06/25/18 07:45 [facility] Administration Oxycodone HCl 10 mg 06/24/18 12:33 06/25/18 13:35 Oxyir PO 10 mg Q4H PRN PRN Administration SEVERE PAIN (6-10/10) Polyethylene Glycol 17 gm 06/23/18 22:00 06/24/18 21:03 Miralax PO 17 gm QHS [facility] Administration Polysaccharide Iron Complex 150 mg 06/24/18 08:00 06/25/18 07:45 Ferrex 150 [facility] Administration Potassium Chloride 20 meq 06/24/18 08:00 06/25/18 07:45 K-Dur PO 20 meq SuTuWeThSa@0800 [facility] Administration Pravastatin Sodium 40 mg 06/23/18 22:00 06/24/18 21:03 Pravachol PO 40 mg QHS [facility] Administration Fluticasone/Salmeterol 1 puff 06/24/18 06:00 06/25/18 06:35 Fluticasone-Salmeterol 232-14 IH 1 puff Q12 [facility] Administration Tuberculin PPD 5 tu 07/01/18 10:00 Tubersol, Aplisol, Ppd ID 07/01/18 10:01 X1 ONE Problem List (Last Updated 06/22/18 @ 10:24 by Nerissa Bhat MD) Debility (Acute) DVT (deep venous thrombosis) (Chronic) Depression (Chronic) Vital Signs Temp Pulse Resp BP Pulse Ox 98.2 F 107 H 16 110/62 94 06/25/18 16:00 06/25/18 16:00 06/25/18 16:00 06/25/18 16:00 06/25/18 16:00 Oxygen Flow Rate (L/min) 2 Oxygen Delivery Method Nasal Cannula Weight: 84 kg Body Mass Index (BMI) 28.8 Finger Stick Blood Glucose 146 Sodium 136 mmol/L (136-145) 06/24/18 05:20 Potassium 3.5 mmol/L (3.5-5.1) 06/24/18 05:20 Chloride 100 mmol/L (98-107) 06/24/18 05:20 Carbon Dioxide 29.0 mmol/L (21.0-32.0) 06/24/18 05:20 Anion Gap 7 (5-15) 06/24/18 05:20 BUN 40 mg/dL (7-18) H 06/24/18 05:20 Creatinine 1.21 mg/dL (0.55-1.02) H 06/24/18 05:20 Est GFR (MDRD) Af Amer 56 mL/min (>60) L 06/24/18 05:20 Est GFR (MDRD) Non-Af 46 mL/min (>60) L 06/24/18 05:20 BUN/Creatinine Ratio 33.1 RATIO (10-20) H 06/24/18 05:20 Glucose 86 mg/dL (74-106) 06/24/18 05:20 Assessment/Plan: Psychotropic Medications: Unnecessary Medications: Bowel Regimen: - Provider Comments Provider responsibility: Provider responsible to enter orders to implement recommendations Provider Comments to Recommendations by Pharmacy: Agree
--- NOTE | 2018-06-25 11:41 | PHA.CONS_ITS ---
<МарияrogersyinBen Fuentes - Last Filed: 06/25/18 11:32> Progress Note - Pharmacy Subjective: TCU Admission Objective: Allergies levofloxacin [Levofloxacin] Allergy (Verified 06/17/18 13:47) Hives warfarin [From Coumadin] Allergy (Verified 06/17/18 13:47) Other torsemide [From Demadex] Adverse Reaction (Intermediate, Verified 06/17/18 13:47) Rash Current Medications Generic Name Dose Route Start Last Admin Trade Name Freq PRN Reason Stop Dose Admin Acetaminophen 1,000 mg 06/24/18 12:32 Tylenol PO Q6H PRN PRN MILD PAIN (1-310) Albuterol Sulfate 2.5 mg 06/24/18 18:17 Ventolin Aerosols INHALATION Q6H.RT PRN sob/wheezing Amitriptyline HCl 50 mg 06/23/18 15:01 Elavil PO QHS PRN INSOMNIA Aspirin 81 mg 06/24/18 08:00 06/25/18 07:45 Ecotrin PO 81 mg DAILY@0800 CHANNING Administration Brimonidine Tartrate 1 drop 06/24/18 06:00 06/25/18 06:33 Alphagan P 0.15% EACH EYE 1 drop BID CHANNING Administration Carvedilol 3.125 mg 06/23/18 18:00 06/25/18 06:30 Coreg PO 3.125 mg BID CHANNING Administration Citalopram Hydrobromide 20 mg 06/24/18 06:00 06/25/18 06:30 Celexa PO 20 mg DAILY CHANNING Administration Diphenhydramine HCl 25 mg 06/24/18 18:04 Benadryl PO Q6H PRN PRN ITCHING Fluticasone Propionate 2 spray 06/24/18 06:00 06/25/18 06:32 Flonase Nasal Cushing NASAL 2 spray DAILY CHANINNG Administration Furosemide 40 mg 06/23/18 18:00 06/25/18 06:30 Lasix PO 40 mg BID CHANNING Administration Gabapentin 100 mg 06/23/18 21:21 06/24/18 12:27 Neurontin PO 100 mg BIDCM PRN Administration neuropathy Hydrocortisone 10 mg 06/23/18 17:00 06/25/18 07:45 Cortef PO 10 mg BIDCM CHANNING Administration Levothyroxine Sodium 88 mcg 06/24/18 06:00 06/25/18 06:30 Synthroid PO 88 mcg DAILY CHANNING Administration Lidocaine 1 patch 06/24/18 06:00 06/25/18 06:31 Lidoderm Patch TOPICAL 1 patch DAILY CHANNING Administration Protocol Lubiprostone 8 mcg 06/23/18 16:22 Amitiza PO QHS PRN Constipation Magnesium Oxide 400 mg 06/24/18 08:00 06/24/18 08:33 Mag-Ox 400 PO 400 mg Q2D CHANNING Administration Metolazone 5 mg 06/24/18 06:00 06/24/18 06:16 Zaroxolyn PO 5 mg SUWE CHANNING Administration Multivitamins 1 tablet 06/24/18 08:00 06/25/18 07:45 Multivitamin PO 1 tablet DAILYCM CHANNING Administration Oxycodone HCl 10 mg 06/24/18 12:33 06/25/18 07:43 Oxyir PO 10 mg Q4H PRN PRN Administration SEVERE PAIN (6-10/10) Polyethylene Glycol 17 gm 06/23/18 22:00 06/24/18 21:03 Miralax PO 17 gm QHS CHANNING Administration Polysaccharide Iron Complex 150 mg 06/24/18 08:00 06/25/18 07:45 Ferrex 150 PO 150 mg DAILYCM CHANNING Administration Potassium Chloride 20 meq 06/24/18 08:00 06/25/18 07:45 K-Dur PO 20 meq [id number]@0800 CHANNING Administration Pravastatin Sodium 40 mg 06/23/18 22:00 06/24/18 21:03 Pravachol PO 40 mg QHS CHANNING Administration Fluticasone/Salmeterol 1 puff 06/24/18 06:00 06/25/18 06:35 Fluticasone-Salmeterol 232-14 IH 1 puff Q12 CHANNING Administration Tuberculin PPD 5 tu 07/01/18 10:00 Tubersol, Aplisol, Ppd ID 07/01/18 10:01 X1 ONE Problem List (Last Updated 06/22/18 @ 10:24 by Nerissa Bhat MD) Debility (Acute) DVT (deep venous thrombosis) (Chronic) Depression (Chronic) Vital Signs Temp Pulse Resp BP Pulse Ox 97.5 F L 99 18 106/65 99 06/25/18 06:38 06/25/18 06:38 06/25/18 06:38 06/25/18 06:38 06/25/18 06:55 Oxygen Flow Rate (L/min) 2 Oxygen Delivery Method Nasal Cannula Weight: 84 kg Body Mass Index (BMI) 28.8 Finger Stick Blood Glucose 146 Sodium 136 mmol/L (136-145) 06/24/18 05:20 Potassium 3.5 mmol/L (3.5-5.1) 06/24/18 05:20 Chloride 100 mmol/L (98-107) 06/24/18 05:20 Carbon Dioxide 29.0 mmol/L (21.0-32.0) 06/24/18 05:20 Anion Gap 7 (5-15) 06/24/18 05:20 BUN 40 mg/dL (7-18) H 06/24/18 05:20 Creatinine 1.21 mg/dL (0.55-1.02) H 06/24/18 05:20 Est GFR (MDRD) Af Amer 56 mL/min (>60) L 06/24/18 05:20 Est GFR (MDRD) Non-Af 46 mL/min (>60) L 06/24/18 05:20 BUN/Creatinine Ratio 33.1 RATIO (10-20) H 06/24/18 05:20 Glucose 86 mg/dL (74-106) 06/24/18 05:20 Assessment/Plan: * 1) Pain APAP for mild pain, oxycodone for severe pain, gabapentin prn, lidocaine patch. Continue to monitor prn medication use, daily pain scores. Gabapentin not indicated/effective for prn use. Consider dc as unnecessary medication or scheduling and titrating to effect. 2) Pulm Advair inhaler, albuterol aerosols prn, fluticasone nsl. Continue to monitor prn medication use, for shortness of breath. 3) CAD/CHF, HLD ASA, carvedilol, furosemide, metolazone, pravastatin, 4) Hypothyroidism Levothyroxine daily. Continue to monitor s/s hyper/hypothyroidism. 5) Nutrition Fe, multivitamin, Mg, KCl. Continue to monitor electrolytes. 6) Adrenal Insufficiency Hydrocortisone twice daily. Continue to monitor clinically. Psychotropic Medications: * 7) Insomnia Amitriptyline at HS prn. Continue to monitor prn medication use, for insomnia. Consider alternate therapy not on BEERS list. 8) Depression Citalopram daily. Continue to monitor s/s depression. Unnecessary Medications: Bowel Regimen: 9) PEG at HS, prn lubiprostone. Continue to monitor prn medication use, for constipation/diarrhea. Date of Note:: 06/25/18 - Provider Comments Provider responsibility: Provider responsible to enter orders to implement recommendations <Farhat Lan Chi - Last Filed: 06/25/18 16:38> Progress Note - Pharmacy Subjective: [] Objective: Allergies levofloxacin [Levofloxacin] Allergy (Verified 06/25/18 14:20) Hives warfarin [From Coumadin] Allergy (Verified 06/25/18 14:20) Other torsemide [From Demadex] Adverse Reaction (Intermediate, Verified 06/25/18 14:20) Rash Current Medications Generic Name Dose Route Start Last Admin Trade Name Freq PRN Reason Stop Dose Admin Acetaminophen 1,000 mg 06/24/18 12:32 06/25/18 16:30 Tylenol PO 1,000 mg Q6H PRN PRN Administration MILD PAIN (1-3/10) Albuterol Sulfate 2.5 mg 06/24/18 18:17 Ventolin Aerosols INHALATION Q6H.RT PRN sob/wheezing Amitriptyline HCl 50 mg 06/23/18 15:01 Elavil PO QHS PRN INSOMNIA Aspirin 81 mg 06/24/18 08:00 06/25/18 07:45 Ecotrin PO 81 mg DAILY@0800 CHANNING Administration Brimonidine Tartrate 1 drop 06/24/18 06:00 06/25/18 16:32 Alphagan P 0.15% EACH EYE 1 drop BID CHANNING Administration Carvedilol 3.125 mg 06/23/18 18:00 06/25/18 16:32 Coreg PO 3.125 mg BID CHANNING Administration Citalopram Hydrobromide 20 mg 06/24/18 06:00 06/25/18 06:30 Celexa PO 20 mg DAILY CHANNING Administration Diphenhydramine HCl 25 mg 06/24/18 18:04 06/25/18 13:35 Benadryl PO 25 mg Q6H PRN PRN Administration ITCHING Fluticasone Propionate 2 spray 06/24/18 06:00 06/25/18 06:32 Flonase Nasal [place]ushing NASAL 2 spray DAILY CHANNING Administration Furosemide 40 mg 06/23/18 18:00 06/25/18 16:31 Lasix PO 40 mg BID CHANNING Administration Gabapentin 100 mg 06/23/18 21:21 06/24/18 12:27 Neurontin PO 100 mg BIDCM PRN Administration neuropathy Hydrocortisone 10 mg 06/23/18 17:00 06/25/18 16:32 Cortef PO 10 mg BIDCM CHANNING Administration Levothyroxine Sodium 88 mcg 06/24/18 06:00 06/25/18 06:30 Synthroid PO 88 mcg DAILY [facility] Administration Lidocaine 1 patch 06/24/18 06:00 06/25/18 06:31 Lidoderm Patch TOPICAL 1 patch DAILY [facility] Administration Protocol Lubiprostone 8 mcg 06/23/18 16:22 Amitiza PO QHS PRN Constipation Magnesium Oxide 400 mg 06/24/18 08:00 06/24/18 08:33 Mag-Ox 400 PO 400 mg Q2D CHANNING Administration Metolazone 5 mg 06/24/18 06:00 06/24/18 06:16 Zaroxolyn PO 5 mg SUWE [facility] Administration Multivitamins 1 tablet 06/24/18 08:00 06/25/18 07:45 [facility] Oxycodone HCl 10 mg 06/24/18 12:33 06/25/18 13:35 Oxyir PO 10 mg Q4H PRN PRN Administration SEVERE PAIN (6-10/10) Polyethylene Glycol 17 gm 06/23/18 22:00 06/24/18 21:03 Miralax PO 17 gm QHS [facility] Administration Polysaccharide Iron Complex 150 mg 06/24/18 08:00 06/25/18 07:45 [facility]rex [facility] Administration Potassium Chloride 20 meq 06/24/18 08:00 06/25/18 07:45 K-Dur PO 20 meq SuTuWeThSa@0800 [facility] Administration Pravastatin Sodium 40 mg 06/23/18 22:00 06/24/18 21:03 Pravachol PO 40 mg QHS [facility] Administration Fluticasone/Salmeterol 1 puff 06/24/18 06:00 06/25/18 06:35 Fluticasone-Salmeterol 232-14 IH 1 puff Q12 CHANNING Administration Tuberculin PPD 5 tu 07/01/18 10:00 Tubersol, Aplisol, Ppd ID 07/01/18 10:01 X1 ONE Problem List (Last Updated 06/22/18 @ 10:24 by Nerissa Bhat MD) Debility (Acute) DVT (deep venous thrombosis) (Chronic) Depression (Chronic) Vital Signs Temp Pulse Resp BP Pulse Ox 98.2 F 107 H 16 110/62 94 06/25/18 16:00 06/25/18 16:00 06/25/18 16:00 06/25/18 16:00 06/25/18 16:00 Oxygen Flow Rate (L/min) 2 Oxygen Delivery Method Nasal Cannula Weight: 84 kg Body Mass Index (BMI) 28.8 Finger Stick Blood Glucose 146 Sodium 136 mmol/L (136-145) 06/24/18 05:20 Potassium 3.5 mmol/L (3.5-5.1) 06/24/18 05:20 Chloride 100 mmol/L (98-107) 06/24/18 05:20 Carbon Dioxide 29.0 mmol/L (21.0-32.0) 06/24/18 05:20 Anion Gap 7 (5-15) 06/24/18 05:20 BUN 40 mg/dL (7-18) H 06/24/18 05:20 Creatinine 1.21 mg/dL (0.55-1.02) H 06/24/18 05:20 Est GFR (MDRD) Af Amer 56 mL/min (>60) L 06/24/18 05:20 Est GFR (MDRD) Non-Af 46 mL/min (>60) L 06/24/18 05:20 BUN/Creatinine Ratio 33.1 RATIO (10-20) H 06/24/18 05:20 Glucose 86 mg/dL (74-106) 06/24/18 05:20 Assessment/Plan: Psychotropic Medications: Unnecessary Medications: Bowel Regimen: - Provider Comments Provider responsibility: Provider responsible to enter orders to implement recommendations Provider Comments to Recommendations by Pharmacy: Agree
--- NOTE | 2018-06-25 11:59 | CASEMGMT ---
Insurance Clinical information faxed. Pending continued stay approval at this time. Auth#[id number] TIFFANY Gorman, CARD ASSEMBLER
[2018-06-25] MEDS: DiphenhydrAMINE 25 MG Capsule PO ×2 (13:35→21:32)
--- NOTE | 2018-06-25 14:33 | CASEMGMT ---
Insurance Continued stay approved with next update due on 06/29/18. Auth#[id number] TIFFANY Gorman, WORKFORCE DEVELOPMENT ASSISTANT
--- NOTE | 2018-06-25 14:45 | NURSING ---
Pt off the unit at this time for an appt.
--- NOTE | 2018-06-25 15:56 | NURSING ---
Patient returned form appointment with Sushil Blair NP, NO for CXR and lasix 40mg PO BID
[2018-06-25 16:00] VITALS: BP 110/62; PULSE 107; RESP 16; TEMP 36.8; O2SAT 94
--- NOTE | 2018-06-25 16:05 | RAD_ITS ---
STUDY: X-RAY CHEST REASON FOR EXAM: Female, 78 years old. Shortness of breath. Fall one week ago. Previous left-sided rib fractures. TECHNIQUE: AP upright and lateral chest. COMPARISON: 06/18/2018 FINDINGS: Left pectoral AICD device with 2 wire leads, stable. Median sternotomy. Moderately large layering left pleural effusion with prominent left lung base atelectasis. Left apical lung clear. Right lung clear without effusion. No pneumothorax. Borderline cardiomegaly, stable. Normal mediastinal silhouette, juana and pleural margins. Left-sided rib fractures previously seen on radiography of 06/18/2018, minimally visible on the study. RAD/Chest PA and Lateral IMPRESSION: Left rib fractures. Moderately large left pleural effusion with prominent left lung base atelectasis. Electronically Signed: Jabier Berkowitz, at 16:23 EST Tel , Service support ,
[2018-06-25] MEDS: Acetaminophen 500 MG Tablet 1000 MG PO (16:30)
--- NOTE | 2018-06-25 18:02 | NURSING ---
NO from Sushil Blair, PLANT ELECTRICAL ENGINEER from cardiology: decrease lasix to 20mg BID and increase coreg to 6.25mg BID. Patient to have OP thoracentesis for pleural effusion. Patient and family aware.
[2018-06-25] MEDS: Pravastatin 40 MG Tablet PO (20:31)
[2018-06-25] MEDS: Polyethylene Glycol 3350 17 GM PACKET PO (20:31)
[2018-06-25] MEDS: Amitriptyline 25 MG Tablet 50 MG PO (20:35)
[2018-06-25 21:38] VITALS: BP 109/66; PULSE 87; RESP 20; O2SAT 97
[2018-06-26] MEDS: oxyCODONE 5 MG Tablet 10 MG PO ×4 (04:02→20:13)
[2018-06-26] MEDS: DiphenhydrAMINE 25 MG Capsule PO ×2 (04:03→10:24)
[2018-06-26] MEDS: BRIMONIDINE 0.15% 5 ML Bottle 1 DRP EACH EYE ×2 (04:06→17:59)
[2018-06-26] MEDS: Lidocaine 5% Patch 1 PATCH TOPICAL (04:06)
[2018-06-26 04:14] VITALS: BP 108/64; PULSE 81; RESP 19; TEMP 36.6; O2SAT 98
[2018-06-26] MEDS: Citalopram 20 MG Tablet PO (06:18)
[2018-06-26] MEDS: Furosemide 20 MG Tablet PO ×2 (06:18→17:46)
[2018-06-26] MEDS: Levothyroxine 88 MCG Tablet PO (06:18)
[2018-06-26] MEDS: Carvedilol 6.25 MG Tablet PO ×2 (06:19→17:46)
[2018-06-26] MEDS: Fluticasone 0.05% 1 SPRAY NASAL.SRY 2 SPRAY NASAL (06:20)
[2018-06-26 06:27] LABS: Absolute Lymphocyte Count 1.78 X10^3/ul (0.83-4.51); Absolute Neutrophil Count 7.5 X10^3/uL (2.0-7.7); Basophil# 0.03 X10^3/uL; Basophil% 0.3 % (0-1); Hemoglobin 7.9 g/dl (12.0-15.0); Lymphocyte # 1.78 X10^3/ul (4.0); Lymphocyte % 15.6 % (19-41); Mean Corp Hgb Conc 31.6 g/gl (32-36); Mean Corpuscular Hgb 33.2 pg (27.0-32.0); Mean Platelet Vol. 9.6 fl (6.2-12.0); Monocyte% 10.5 % (0-10); Neutrophil # 7.53 X10^3/uL (2.7-7.7); Neutrophil % 65.7 % (47-70); POSITIVE COUNT NO; POSITIVE DIFFERENTIAL NO; POSITIVE MORPHOLOGY NO; Platelet Count 257 K/mm3 (150-450); RBC Distribution Width CV 17.4 % (11.6-14.6); RBC Distribution Width SD 60.9 fl (35.1-43.9); Red Blood Count 2.38 M/mm3 (4.2-5.4); White Blood Count 11.4 K/mm3 (4.4-11.0)
[2018-06-26 06:35] LABS: Anion Gap 9 (5-15); BUN 42 mg/dL (7-18); BUN/Creat Ratio 32.6 RATIO (10-20); Chloride 97 mmol/L (98-107); Creatinine, Serum 1.29 mg/dL (0.55-1.02); EST Glomerular Filtration Rate 43 mL/min (>60); Est Glom Filt Rate - Afr Amer 52 mL/min (>60); Estimated Creatinine Clearance 34.73 ml/min; Glucose 87 mg/dL (74-106); Sodium Level 140 mmol/L (136-145)
[2018-06-26 07:02] VITALS: O2SAT 97
[2018-06-26] MEDS: Multivitamins,Therapeutic Tablet 1 TABLET PO (09:21)
[2018-06-26] MEDS: Aspirin E.C. 81 MG Tablet PO (09:21)
[2018-06-26] MEDS: Magnesium Oxide 400 MG Tablet PO (09:21)
[2018-06-26] MEDS: Iron Polysaccharide Complex 150 MG CAPSULE PO (09:22)
[2018-06-26] MEDS: Hydrocortisone 10 MG Tablet PO ×2 (09:22→17:46)
[2018-06-26] MEDS: Acetaminophen 500 MG Tablet 1000 MG PO ×2 (14:08→21:49)
--- NOTE | 2018-06-26 15:21 | NURSING ---
wound photo: right anterior knee
--- NOTE | 2018-06-26 15:22 | NURSING ---
wound photo: right medial knee
[2018-06-26 16:00] VITALS: BP 107/64; PULSE 87; RESP 20; TEMP 36.4; O2SAT 97
[2018-06-26] MEDS: Fluticasone/Salmeterol 232-14 Inhaler 1 PUFF IH (17:46)
[2018-06-26] MEDS: Polyethylene Glycol 3350 17 GM PACKET PO (20:13)
[2018-06-26] MEDS: Pravastatin 40 MG Tablet PO (20:13)
[2018-06-26] MEDS: Amitriptyline 25 MG Tablet 50 MG PO (20:13)
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
[2018-06-27 01:05] VITALS: PULSE 77; RESP 20; O2SAT 95
[2018-06-27] MEDS: Albuterol 2.5 MG/3 ML VIAL.NEB. INHALATION ×2 (01:05→11:40)
[2018-06-27] MEDS: oxyCODONE 5 MG Tablet 10 MG PO ×5 (01:26→20:07)
[2018-06-27] MEDS: Lidocaine 5% Patch 1 PATCH TOPICAL (06:08)
[2018-06-27] MEDS: Furosemide 20 MG Tablet PO ×2 (06:10→17:00)
[2018-06-27] MEDS: BRIMONIDINE 0.15% 5 ML Bottle 1 DRP EACH EYE ×2 (06:10→17:00)
[2018-06-27] MEDS: Carvedilol 6.25 MG Tablet PO ×2 (06:10→17:00)
[2018-06-27] MEDS: Citalopram 20 MG Tablet PO (06:10)
[2018-06-27] MEDS: Levothyroxine 88 MCG Tablet PO (06:10)
[2018-06-27] MEDS: Acetaminophen 500 MG Tablet 1000 MG PO (06:10)
[2018-06-27] MEDS: Fluticasone/Salmeterol 232-14 Inhaler 1 PUFF IH ×2 (06:12→16:57)
[2018-06-27] MEDS: Fluticasone 0.05% 1 SPRAY NASAL.SRY 2 SPRAY NASAL (06:12)
[2018-06-27 06:35] VITALS: O2SAT 98
[2018-06-27] MEDS: Multivitamins,Therapeutic Tablet 1 TABLET PO (08:27)
[2018-06-27] MEDS: Hydrocortisone 10 MG Tablet PO ×2 (08:27→17:00)
[2018-06-27] MEDS: Aspirin E.C. 81 MG Tablet PO (08:27)
[2018-06-27] MEDS: Iron Polysaccharide Complex 150 MG CAPSULE PO (08:27)
[2018-06-27] MEDS: DiphenhydrAMINE 25 MG Capsule PO (10:56)
[2018-06-27 11:40] VITALS: PULSE 90; RESP 16; O2SAT 98
[2018-06-27 15:23] VITALS: BP 108/52; PULSE 94; RESP 22; TEMP 36.2; O2SAT 98
[2018-06-27] MEDS: BENZOCAINE/MENTHOL 1 LOZENGE MUCOUS MEM ×2 (16:22→20:18)
--- NOTE | 2018-06-27 16:27 | EKG12_ITS ---
Test Reason : TACHYCARDIA Blood Pressure : / mmHG Vent. Rate : 090 BPM Atrial Rate : 104 BPM P-R Int : 000 ms QRS Dur : 126 ms QT Int : 348 ms P-R-T Axes : 000 003 180 degrees QTc Int : 425 ms Atrial fibrillation with premature ventricular or aberrantly conducted complexes Non-specific intra-ventricular conduction block T wave abnormality, consider anterolateral ischemia or digitalis effect Abnormal ECG When compared with ECG of 22-JUN-2018 18:23, MANUAL COMPARISON REQUIRED, DATA IS UNCONFIRMED Confirmed by ADAM TIRADO, LAUREN ([id number]), editor continuity and script CAROLEE MARIEE ([id number]) on 07/03/2018 2:27:31 PM Referred By: Farhat Lan Confirmed By:LAUREN MEDINA MD
--- NOTE | 2018-06-27 17:26 | RAD_ITS ---
STUDY: X-RAY CHEST REASON FOR EXAM: Female, 78 years old. Pleural effusion, cough. TECHNIQUE: PA and lateral chest. COMPARISON: 06/25/2018. FINDINGS: There is a small left pleural effusion, decreased compared to the prior study. Lung russell are otherwise clear. Normal size heart. Pacemaker is noted on the left. Normal mediastinum and juana. Normal visualized pulmonary arteries. Normal visualized aortic arch and descending thoracic aorta. Normal visualized thoracic spine. Normal visualized ribs, clavicles, and shoulders. There is no demonstrated abnormality of the visualized soft tissue structures of the upper abdomen. RAD/Chest PA and Lateral IMPRESSION: Left pleural effusion, decreased from the prior study. Electronically Signed: Mercedez Owen MD at 19:41 EST Tel , Service support ,
--- NOTE | 2018-06-27 17:27 | NURSING ---
pt daughter concerned, feels cough is worse, requesting chest xray. pt sat 98% on 2L oxygen. Resting in bed, call light in reach. Dr Lan notified, new order for xray tonight
[2018-06-27 20:05] VITALS: PULSE 88; O2SAT 98
[2018-06-27] MEDS: Amitriptyline 25 MG Tablet 50 MG PO (20:07)
[2018-06-27] MEDS: Gabapentin 100 MG Capsule PO (20:07)
[2018-06-27] MEDS: LUBIPROSTONE 8 MCG CAPSULE PO (20:07)
[2018-06-27] MEDS: Pravastatin 40 MG Tablet PO (20:08)
[2018-06-27] MEDS: Polyethylene Glycol 3350 17 GM PACKET PO (20:08)
--- NOTE | 2018-06-28 01:19 | NURSING ---
Pt's daughter, Valerie updated on CXR results.
[2018-06-28] MEDS: BENZOCAINE/MENTHOL 1 LOZENGE MUCOUS MEM ×3 (03:44→21:18)
[2018-06-28 05:13] VITALS: BP 93/53; PULSE 90; RESP 18; TEMP 36.6; O2SAT 99
[2018-06-28] MEDS: oxyCODONE 5 MG Tablet 10 MG PO ×3 (05:14→21:19)
[2018-06-28] MEDS: Levothyroxine 88 MCG Tablet PO (05:18)
[2018-06-28] MEDS: Citalopram 20 MG Tablet PO (05:18)
[2018-06-28] MEDS: Albuterol 2.5 MG/3 ML VIAL.NEB. INHALATION (05:18)
[2018-06-28] MEDS: Carvedilol 6.25 MG Tablet PO ×2 (05:19→17:16)
[2018-06-28] MEDS: metOLazone 5 MG Tablet PO (05:19)
[2018-06-28 05:20] VITALS: PULSE 88; RESP 16; O2SAT 98
[2018-06-28] MEDS: Lidocaine 5% Patch 1 PATCH TOPICAL (05:21)
[2018-06-28] MEDS: Fluticasone/Salmeterol 232-14 Inhaler 1 PUFF IH ×2 (05:21→17:18)
[2018-06-28] MEDS: Furosemide 20 MG Tablet PO ×2 (05:21→17:16)
[2018-06-28] MEDS: BRIMONIDINE 0.15% 5 ML Bottle 1 DRP EACH EYE ×2 (05:22→17:18)
[2018-06-28] MEDS: Fluticasone 0.05% 1 SPRAY NASAL.SRY 2 SPRAY NASAL (05:26)
[2018-06-28 06:33] LABS: Absolute Lymphocyte Count 1.29 X10^3/ul (0.83-4.51); Absolute Neutrophil Count 7.5 X10^3/uL (2.0-7.7); Basophil# 0.03 X10^3/uL; Basophil% 0.3 % (0-1); Eosinophils% 6.5 % (0-5); Hematocrit 27.3 % (37-47); Hemoglobin 8.3 g/dl (12.0-15.0); Lymphocyte # 1.29 X10^3/ul (4.0); Lymphocyte % 11.9 % (19-41); Mean Corp Hgb Conc 30.4 g/gl (32-36); Mean Corpuscular Hgb 32.4 pg (27.0-32.0); Mean Corpuscular Volume 106.6 fL (81-99); Mean Platelet Vol. 9.5 fl (6.2-12.0); Monocyte# 1.23 X10^3/uL; Monocyte% 11.4 % (0-10); Neutrophil # 7.47 X10^3/uL (2.7-7.7); Neutrophil % 69.1 % (47-70); Platelet Count 287 K/mm3 (150-450); RBC Distribution Width CV 18.2 % (11.6-14.6); RBC Distribution Width SD 63.2 fl (35.1-43.9); Red Blood Count 2.56 M/mm3 (4.2-5.4); White Blood Count 10.8 K/mm3 (4.4-11.0)
[2018-06-28 06:44] LABS: POSITIVE COUNT NO; POSITIVE DIFFERENTIAL NO; POSITIVE MORPHOLOGY NO
[2018-06-28 07:01] LABS: Anion Gap 10 (5-15); BUN 38 mg/dL (7-18); BUN/Creat Ratio 31.4 RATIO (10-20); Calcium,Total 8.3 mg/dL (8.5-10.1); Chloride 97 mmol/L (98-107); Creatinine, Serum 1.21 mg/dL (0.55-1.02); EST Glomerular Filtration Rate 46 mL/min (>60); Est Glom Filt Rate - Afr Amer 56 mL/min (>60); Estimated Creatinine Clearance 37.03 ml/min; Glucose 78 mg/dL (74-106); Potassium 3.3 mmol/L (3.5-5.1); Sodium Level 141 mmol/L (136-145)
[2018-06-28 07:24] VITALS: O2SAT 98
[2018-06-28] MEDS: Magnesium Oxide 400 MG Tablet PO (07:57)
[2018-06-28] MEDS: Iron Polysaccharide Complex 150 MG CAPSULE PO (07:57)
[2018-06-28] MEDS: Multivitamins,Therapeutic Tablet 1 TABLET PO (07:57)
[2018-06-28] MEDS: Aspirin E.C. 81 MG Tablet PO (07:57)
[2018-06-28] MEDS: Hydrocortisone 10 MG Tablet PO ×2 (07:58→17:15)
[2018-06-28] MEDS: Acetaminophen 500 MG Tablet 1000 MG PO ×2 (08:19→15:30)
--- NOTE | 2018-06-28 09:30 | NURSING ---
Addendum entered by Sasha Gil 06/28/18 14:25: positive for rhinovirus, placed in droplet precautions. Original Note: pt with harsh dry cough, causing pain to ribs d/t fractures. chest xray done last evening with improvement in effusion. pt mentioned that she had visitors in yesterday with coughing/cold. Dr thomas notified, new order for resp panel, CPS notified for nasal swab. PRN cepacol given this AM. Pt resting in recliner chair. Call light in reach. Oxygen maintained at 2 liters.
[2018-06-28 10:00] VITALS: PULSE 76; O2SAT 98
[2018-06-28 13:23] VITALS: PULSE 86; O2SAT 98
--- NOTE | 2018-06-28 15:36 | NURSING ---
In droplet precautions for Rhinovirus as of today, all are provided in pt's room
[2018-06-28 16:00] VITALS: BP 91/56; PULSE 88; RESP 18; TEMP 36.4; O2SAT 96
[2018-06-28] MEDS: DiphenhydrAMINE 25 MG Capsule PO (17:22)
--- NOTE | 2018-06-28 20:41 | NURSING ---
Dr. Glez called in to get update on pt.
[2018-06-28] MEDS: LUBIPROSTONE 8 MCG CAPSULE PO (21:16)
[2018-06-28] MEDS: Polyethylene Glycol 3350 17 GM PACKET PO (21:18)
[2018-06-28] MEDS: Pravastatin 40 MG Tablet PO (21:18)
[2018-06-28] MEDS: Amitriptyline 25 MG Tablet 50 MG PO (21:18)
[2018-06-28] MEDS: Gabapentin 100 MG Capsule PO (21:18)
--- NOTE | 2018-06-29 05:02 | NURSING ---
All care provided in patients room during shift d/t rhinovirus.
[2018-06-29] MEDS: Levothyroxine 88 MCG Tablet PO (05:04)
[2018-06-29] MEDS: Lidocaine 5% Patch 1 PATCH TOPICAL (05:04)
[2018-06-29] MEDS: Citalopram 20 MG Tablet PO (05:04)
[2018-06-29] MEDS: Carvedilol 6.25 MG Tablet PO ×2 (05:04→17:46)
[2018-06-29] MEDS: Furosemide 20 MG Tablet PO ×2 (05:04→17:45)
[2018-06-29] MEDS: oxyCODONE 5 MG Tablet 10 MG PO ×4 (05:05→20:55)
[2018-06-29] MEDS: Fluticasone 0.05% 1 SPRAY NASAL.SRY 2 SPRAY NASAL (05:16)
[2018-06-29] MEDS: BRIMONIDINE 0.15% 5 ML Bottle 1 DRP EACH EYE ×2 (05:16→17:43)
[2018-06-29] MEDS: Fluticasone/Salmeterol 232-14 Inhaler 1 PUFF IH ×2 (05:17→20:06)
[2018-06-29 05:29] VITALS: BP 125/90; PULSE 87; RESP 18; TEMP 36.6; O2SAT 97
[2018-06-29 06:40] VITALS: O2SAT 100
[2018-06-29 06:41] VITALS: O2SAT 99
[2018-06-29] MEDS: Multivitamins,Therapeutic Tablet 1 TABLET PO (08:52)
[2018-06-29] MEDS: Iron Polysaccharide Complex 150 MG CAPSULE PO (08:52)
[2018-06-29] MEDS: Aspirin E.C. 81 MG Tablet PO (08:52)
[2018-06-29] MEDS: Hydrocortisone 10 MG Tablet PO (09:45)
--- NOTE | 2018-06-29 10:59 | NURSING ---
New order obtained to decrease 1700 dose of cortef to 7.5mg per Dr. Glez recommendation.
--- NOTE | 2018-06-29 12:22 | CASEMGMT ---
Insurance Clinical information sent. Pending continued stay approval at this time. Auth#[id number] TIFFANY Gorman, OBSTETRICS TECH
--- NOTE | 2018-06-29 12:50 | NURSING ---
Cardiovasc here doing echo at bedside.
--- NOTE | 2018-06-29 14:59 | CASEMGMT ---
Brief interview for mental status (BIMS) and resident mood interview (PHQ-9) completed on this day. BIMS score 07/25. PHQ-9 score 09/06
[2018-06-29 15:11] VITALS: BP 96/46; PULSE 86; RESP 18; TEMP 36.7; O2SAT 98
--- NOTE | 2018-06-29 15:57 | NURSING ---
wound photo: right knee
--- NOTE | 2018-06-29 15:57 | NURSING ---
wound photo: right medial knee
[2018-06-29] MEDS: DiphenhydrAMINE 25 MG Capsule PO (17:46)
[2018-06-29] MEDS: Hydrocortisone 10 MG Tablet 7.5 MG PO (17:46)
[2018-06-29] MEDS: Polyethylene Glycol 3350 17 GM PACKET PO (20:06)
[2018-06-29] MEDS: LUBIPROSTONE 8 MCG CAPSULE PO (20:13)
[2018-06-29] MEDS: Gabapentin 100 MG Capsule PO (20:15)
[2018-06-29] MEDS: Amitriptyline 25 MG Tablet 50 MG PO (20:45)
[2018-06-29] MEDS: Pravastatin 40 MG Tablet PO (20:45)
--- NOTE | 2018-06-30 01:30 | NURSING ---
All care provided in patients room during shift d/t being in contact isolation for rhinovirus.
[2018-06-30] MEDS: Citalopram 20 MG Tablet PO (05:20)
[2018-06-30] MEDS: Carvedilol 6.25 MG Tablet PO ×2 (05:20→17:13)
[2018-06-30] MEDS: Furosemide 20 MG Tablet PO ×2 (05:20→17:14)
[2018-06-30] MEDS: Levothyroxine 88 MCG Tablet PO (05:20)
[2018-06-30] MEDS: Lidocaine 5% Patch 1 PATCH TOPICAL (05:20)
[2018-06-30] MEDS: BRIMONIDINE 0.15% 5 ML Bottle 1 DRP EACH EYE ×2 (05:20→17:17)
[2018-06-30] MEDS: Fluticasone 0.05% 1 SPRAY NASAL.SRY 2 SPRAY NASAL (05:21)
[2018-06-30] MEDS: Fluticasone/Salmeterol 232-14 Inhaler 1 PUFF IH ×2 (05:21→17:18)
[2018-06-30 05:26] LABS: Absolute Lymphocyte Count 1.63 X10^3/ul (0.83-4.51); Absolute Neutrophil Count 8.8 X10^3/uL (2.0-7.7); Basophil# 0.03 X10^3/uL; Basophil% 0.2 % (0-1); Eosinophil# 0.46 X10^3/uL; Eosinophils% 3.8 % (0-5); Hematocrit 27.6 % (37-47); Hemoglobin 8.6 g/dl (12.0-15.0); Lymphocyte # 1.63 X10^3/ul (4.0); Lymphocyte % 13.4 % (19-41); Mean Corp Hgb Conc 31.2 g/gl (32-36); Mean Corpuscular Hgb 33.2 pg (27.0-32.0); Mean Corpuscular Volume 106.6 fL (81-99); Mean Platelet Vol. 9.3 fl (6.2-12.0); Monocyte# 1.15 X10^3/uL; Monocyte% 9.5 % (0-10); Neutrophil # 8.81 X10^3/uL (2.7-7.7); Neutrophil % 72.4 % (47-70); Platelet Count 257 K/mm3 (150-450); RBC Distribution Width CV 18.5 % (11.6-14.6); RBC Distribution Width SD 63.8 fl (35.1-43.9); Red Blood Count 2.59 M/mm3 (4.2-5.4); White Blood Count 12.2 K/mm3 (4.4-11.0)
[2018-06-30 05:31] LABS: POSITIVE COUNT NO; POSITIVE DIFFERENTIAL NO; POSITIVE MORPHOLOGY NO
[2018-06-30 05:50] LABS: Anion Gap 10 (5-15); BUN 41 mg/dL (7-18); BUN/Creat Ratio 31.8 RATIO (10-20); Calcium,Total 8.3 mg/dL (8.5-10.1); Chloride 99 mmol/L (98-107); Creatinine, Serum 1.29 mg/dL (0.55-1.02); EST Glomerular Filtration Rate 43 mL/min (>60); Est Glom Filt Rate - Afr Amer 52 mL/min (>60); Estimated Creatinine Clearance 34.73 ml/min; Glucose 77 mg/dL (74-106); Potassium 3.7 mmol/L (3.5-5.1); Sodium Level 140 mmol/L (136-145)
[2018-06-30] MEDS: oxyCODONE 5 MG Tablet 10 MG PO ×3 (07:05→15:19)
[2018-06-30 08:16] VITALS: BP 110/62; PULSE 84; RESP 18; TEMP 36.8; O2SAT 99
[2018-06-30] MEDS: Magnesium Oxide 400 MG Tablet PO (08:29)
[2018-06-30] MEDS: Multivitamins,Therapeutic Tablet 1 TABLET PO (08:29)
[2018-06-30] MEDS: Aspirin E.C. 81 MG Tablet PO (08:29)
[2018-06-30] MEDS: Hydrocortisone 10 MG Tablet PO (08:29)
[2018-06-30] MEDS: Iron Polysaccharide Complex 150 MG CAPSULE PO (08:29)
[2018-06-30] MEDS: Acetaminophen 500 MG Tablet 1000 MG PO ×2 (09:49→16:08)
--- NOTE | 2018-06-30 10:28 | CASEMGMT ---
Plan of care meeting held. Resident present as well as resident family. No discharge date set at this time. Resident to continue with further care and treatment on the Transitional Care Unit at this time. Resident plans to discharge to home with spouse at time of discharge. Resident is pending insurance approval at this time and aware that continued stay approval is not guaranteed. Resident does have a walker, wheelchair, and rollaider at home. Support given. Will continue to follow. TIFFANY Gorman, WIRE BORDER ASSEMBLER
--- NOTE | 2018-06-30 11:12 | CASEMGMT ---
Insurance Continued stay approved with next update due 07/06/18. Auth#[id number] TIFFANY Gorman, SOCIAL MEDIA CAMPAIGN MANAGER
[2018-06-30 11:29] LABS: International Normalized Ratio 1.3; Partial Thromboplast Time 29.9 Seconds (24.1-36.2); Prothrombin Time (Protime)PT. 16.2 SECONDS (11.7-14.9)
--- NOTE | 2018-06-30 12:24 | NURSING ---
All care provided in room due to resident being in droplet precautions.
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
--- NOTE | 2018-06-30 14:55 | NURSING ---
Radiology calls and report given to this RN. They took resident to radiology to do thoracentesis to pleural effusion but ended up not going it d/t it being too small. Sasha, automatic lathe tender aware.
[2018-06-30 16:00] VITALS: BP 101/65; PULSE 81; RESP 20; TEMP 36; O2SAT 92
[2018-06-30] MEDS: guaiFENesin Dm 10 ML UDC 5 ML PO (16:05)
[2018-06-30] MEDS: Hydrocortisone 10 MG Tablet 7.5 MG PO (17:12)
[2018-06-30] MEDS: Benzonatate 100 MG Capsule PO ×2 (17:12→20:22)
[2018-06-30] MEDS: LUBIPROSTONE 8 MCG CAPSULE PO (20:21)
[2018-06-30] MEDS: Pravastatin 40 MG Tablet PO (20:22)
[2018-06-30] MEDS: Polyethylene Glycol 3350 17 GM PACKET PO (20:23)
[2018-06-30] MEDS: Gabapentin 100 MG Capsule PO (20:26)
[2018-06-30] MEDS: Amitriptyline 25 MG Tablet 50 MG PO (20:26)
[2018-07-01] MEDS: guaiFENesin Dm 10 ML UDC 5 ML PO ×2 (02:14→14:02)
[2018-07-01] MEDS: oxyCODONE 5 MG Tablet 10 MG PO ×3 (02:22→13:44)
[2018-07-01] MEDS: Lidocaine 5% Patch 1 PATCH TOPICAL (06:44)
[2018-07-01] MEDS: Levothyroxine 88 MCG Tablet PO (06:44)
[2018-07-01] MEDS: Citalopram 20 MG Tablet PO (06:44)
[2018-07-01] MEDS: Benzonatate 100 MG Capsule PO ×3 (06:44→20:59)
[2018-07-01] MEDS: Furosemide 20 MG Tablet PO ×2 (06:44→17:48)
[2018-07-01] MEDS: metOLazone 5 MG Tablet PO (06:44)
[2018-07-01] MEDS: Carvedilol 6.25 MG Tablet PO ×2 (06:44→17:48)
[2018-07-01] MEDS: Fluticasone 0.05% 1 SPRAY NASAL.SRY 2 SPRAY NASAL (06:46)
[2018-07-01] MEDS: Fluticasone/Salmeterol 232-14 Inhaler 1 PUFF IH ×2 (06:47→17:48)
[2018-07-01] MEDS: BRIMONIDINE 0.15% 5 ML Bottle 1 DRP EACH EYE ×2 (06:48→17:48)
[2018-07-01] MEDS: Multivitamins,Therapeutic Tablet 1 TABLET PO (07:45)
[2018-07-01] MEDS: Aspirin E.C. 81 MG Tablet PO (07:45)
[2018-07-01] MEDS: Iron Polysaccharide Complex 150 MG CAPSULE PO (07:46)
[2018-07-01] MEDS: Hydrocortisone 10 MG Tablet PO (07:46)
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
[2018-07-01] MEDS: Tuberculin,Purif.prot.deriv. 50 TU/ML Vial 5 ML ID (10:26)
[2018-07-01] MEDS: Acetaminophen 500 MG Tablet 1000 MG PO ×2 (10:29→21:06)
[2018-07-01 11:36] VITALS: O2SAT 94
--- NOTE | 2018-07-01 15:53 | CHAPLAIN ---
Type of Pastoral Visit ___ Initial Visit _x__ Follow-up Visit ___ On-call Visit ___ General Patient Visit ___ Spiritual Assessment ___ Family Conference ___ Bereavement ___ Rapid Response ___ Code Blue ___ Other (describe below) Pastoral Care Referral From _x__ Patient _x__ Family ___ Nurse ___ Physician ___ Bleach Liquor Maker ___ Resilient Tile Installer ___ Other (describe below) Sacrament/Intervention _x__ Active listening ___ Anointing ___ Mandaeism ___ Bereavement _x__ Communion ___ Shelly exploration ___ ___ Life review _x__ Prayer ___ Reconciliation ___ Sacrament of Sick _x__ Supportive presence ___ Wedding ___ Other (describe below) Pastoral Comments
[2018-07-01 16:00] VITALS: BP 105/48; PULSE 79; RESP 20; TEMP 35.9; O2SAT 97
[2018-07-01] MEDS: Hydrocortisone 10 MG Tablet 7.5 MG PO (17:48)
--- NOTE | 2018-07-01 18:06 | NURSING ---
dr tucker called in for labs & medical status. updated on all. no new orders.
[2018-07-01] MEDS: Albuterol 2.5 MG/3 ML VIAL.NEB. INHALATION (19:56)
[2018-07-01 19:57] VITALS: PULSE 87; RESP 16; O2SAT 98
[2018-07-01] MEDS: Pravastatin 40 MG Tablet PO (20:59)
[2018-07-01] MEDS: Polyethylene Glycol 3350 17 GM PACKET PO (20:59)
[2018-07-01] MEDS: BENZOCAINE/MENTHOL 1 LOZENGE MUCOUS MEM (20:59)
[2018-07-01] MEDS: Amitriptyline 25 MG Tablet 50 MG PO (21:07)
[2018-07-01] MEDS: Gabapentin 100 MG Capsule PO (21:07)
[2018-07-02] MEDS: Furosemide 20 MG Tablet PO ×2 (04:37)
[2018-07-02] MEDS: Carvedilol 6.25 MG Tablet PO ×2 (04:37→17:23)
[2018-07-02] MEDS: Lidocaine 5% Patch 1 PATCH TOPICAL (04:37)
[2018-07-02] MEDS: Citalopram 20 MG Tablet PO (04:37)
[2018-07-02] MEDS: Acetaminophen 500 MG Tablet 1000 MG PO ×2 (04:37→11:36)
[2018-07-02] MEDS: Levothyroxine 88 MCG Tablet PO (04:37)
[2018-07-02] MEDS: Benzonatate 100 MG Capsule PO ×3 (04:42→21:58)
[2018-07-02] MEDS: Fluticasone/Salmeterol 232-14 Inhaler 1 PUFF IH ×2 (04:45→17:30)
[2018-07-02] MEDS: BRIMONIDINE 0.15% 5 ML Bottle 1 DRP EACH EYE ×2 (04:45→17:32)
[2018-07-02] MEDS: Fluticasone 0.05% 1 SPRAY NASAL.SRY 2 SPRAY NASAL (04:45)
[2018-07-02] MEDS: guaiFENesin Dm 10 ML UDC 5 ML PO ×3 (04:55→21:57)
[2018-07-02] MEDS: BENZOCAINE/MENTHOL 1 LOZENGE MUCOUS MEM (04:55)
[2018-07-02 07:09] LABS: Anion Gap 9 (5-15); BUN 60 mg/dL (7-18); BUN/Creat Ratio 45.8 RATIO (10-20); Calcium,Total 8.4 mg/dL (8.5-10.1); Chloride 97 mmol/L (98-107); Creatinine, Serum 1.31 mg/dL (0.55-1.02); EST Glomerular Filtration Rate 42 mL/min (>60); Est Glom Filt Rate - Afr Amer 51 mL/min (>60); Glucose 86 mg/dL (74-106); Potassium 3.4 mmol/L (3.5-5.1); Sodium Level 137 mmol/L (136-145)
[2018-07-02 07:10] VITALS: O2SAT 93
[2018-07-02 07:13] LABS: Absolute Lymphocyte Count 1.29 X10^3/ul (0.83-4.51); Absolute Neutrophil Count 9.6 X10^3/uL (2.0-7.7); Basophil# 0.02 X10^3/uL; Basophil% 0.2 % (0-1); Differential Indicated SCAN CRITERIA MET; Eosinophils% 3.2 % (0-5); Hematocrit 27.3 % (37-47); Hemoglobin 8.5 g/dl (12.0-15.0); Lymphocyte # 1.29 X10^3/ul (4.0); Lymphocyte % 10.3 % (19-41); Mean Corp Hgb Conc 31.1 g/gl (32-36); Mean Corpuscular Hgb 32.8 pg (27.0-32.0); Mean Corpuscular Volume 105.4 fL (81-99); Mean Platelet Vol. 9.1 fl (6.2-12.0); Monocyte# 1.15 X10^3/uL; Monocyte% 9.2 % (0-10); Neutrophil # 9.55 X10^3/uL (2.7-7.7); Neutrophil % 76.6 % (47-70); POSITIVE COUNT NO; POSITIVE DIFFERENTIAL NO; POSITIVE MORPHOLOGY YES; Platelet Count 244 K/mm3 (150-450); RBC Distribution Width CV 19.1 % (11.6-14.6); RBC Distribution Width SD 68.1 fl (35.1-43.9); Red Blood Count 2.59 M/mm3 (4.2-5.4); White Blood Count 12.5 K/mm3 (4.4-11.0)
[2018-07-02 07:39] LABS: Anisocytosis 2+; Hypochromasia 1+
[2018-07-02] MEDS: Iron Polysaccharide Complex 150 MG CAPSULE PO (08:20)
[2018-07-02] MEDS: Multivitamins,Therapeutic Tablet 1 TABLET PO (08:21)
[2018-07-02] MEDS: Magnesium Oxide 400 MG Tablet PO (08:21)
[2018-07-02] MEDS: Hydrocortisone 10 MG Tablet PO (08:21)
[2018-07-02] MEDS: Aspirin E.C. 81 MG Tablet PO (08:21)
[2018-07-02] MEDS: oxyCODONE 5 MG Tablet 10 MG PO ×2 (08:35→21:58)
[2018-07-02] MEDS: Gabapentin 100 MG Capsule PO ×2 (14:05→21:58)
[2018-07-02 14:12] VITALS: PULSE 93; RESP 16; O2SAT 98
[2018-07-02] MEDS: Albuterol 2.5 MG/3 ML VIAL.NEB. INHALATION ×2 (14:12→22:30)
--- NOTE | 2018-07-02 14:44 | EKG12_ITS ---
Test Reason : DISRHYTHMIAS Blood Pressure : / mmHG Vent. Rate : 088 BPM Atrial Rate : 073 BPM P-R Int : 000 ms QRS Dur : 128 ms QT Int : 422 ms P-R-T Axes : 000 011 182 degrees QTc Int : 510 ms Atrial fibrillation with premature ventricular or aberrantly conducted complexes Non-specific intra-ventricular conduction block Nonspecific T wave abnormality Abnormal ECG Confirmed by PATRICIA TIRADO, TRISTEN ([id number]), supervising film or videotape editor CAROLEE MARIEE ([id number]) on 07/16/2018 3:18:27 PM Referred By: Farhat Lan Confirmed By:TRISTEN GOMEZ MD
--- NOTE | 2018-07-02 14:45 | NURSING ---
Pt has c/o moist, productive cough with clear phlegm. LS with rhonchi throughout, respirations slightly labored. oxygen 94% on RA, HR 105 and irregular. 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 Patient put on 2LPM via NC for comfort. Given PRN albuterol. Dr. Lan updated. NO for CXR and EKG.
--- NOTE | 2018-07-02 15:03 | NURSING ---
Dr. Lan reviewed labs, NO to increase potassium to 20mEq BID and recheck BMP in AM.
--- NOTE | 2018-07-02 15:24 | RAD_ITS ---
STUDY: X-RAY CHEST REASON FOR EXAM: Female, 78 years old. Cough TECHNIQUE: Frontal and lateral views of the chest. COMPARISON: 06/27/2018. FINDINGS: Moderate lung volumes. Mild diffuse congestion and pulmonary edema. Atelectasis or infiltrate in the lower left lung with probable pleural effusion. There is moderate cardiac enlargement. Pacemaker is seen with leads terminating in the right atrium and right ventricle. Previous CABG Normal mediastinum and juana. Normal visualized pulmonary arteries. Normal visualized aortic arch and descending thoracic aorta. Normal visualized thoracic spine. Normal visualized ribs, clavicles, and shoulders. There is no demonstrated abnormality of the visualized soft tissue structures of the upper abdomen. RAD/Chest PA and Lateral IMPRESSION: Decreased lung volumes and mild congestion, edema that is worse since prior study. Electronically Signed: Mele Brown MD at 16:12 EST , Service support ,
[2018-07-02 15:43] VITALS: BP 102/53; PULSE 87; RESP 20; TEMP 36.2; O2SAT 98
[2018-07-02] MEDS: Hydrocortisone 10 MG Tablet 7.5 MG PO (17:25)
[2018-07-02] MEDS: Amitriptyline 25 MG Tablet 50 MG PO (21:58)
[2018-07-02] MEDS: Pravastatin 40 MG Tablet PO (21:58)
[2018-07-02 22:50] VITALS: PULSE 91; RESP 16
[2018-07-03] MEDS: Citalopram 20 MG Tablet PO (04:16)
[2018-07-03] MEDS: Lidocaine 5% Patch 1 PATCH TOPICAL (04:16)
[2018-07-03] MEDS: Levothyroxine 88 MCG Tablet PO (04:16)
[2018-07-03] MEDS: Furosemide 20 MG Tablet PO ×2 (04:16→17:12)
[2018-07-03] MEDS: oxyCODONE 5 MG Tablet 10 MG PO ×5 (04:16→22:00)
[2018-07-03] MEDS: Benzonatate 100 MG Capsule PO ×3 (04:16→20:55)
[2018-07-03] MEDS: guaiFENesin Dm 10 ML UDC 5 ML PO ×2 (04:16→20:55)
[2018-07-03] MEDS: Carvedilol 6.25 MG Tablet PO ×2 (04:16→17:12)
[2018-07-03] MEDS: BENZOCAINE/MENTHOL 1 LOZENGE MUCOUS MEM ×2 (04:25→09:17)
[2018-07-03] MEDS: Fluticasone 0.05% 1 SPRAY NASAL.SRY 2 SPRAY NASAL (04:26)
[2018-07-03] MEDS: BRIMONIDINE 0.15% 5 ML Bottle 1 DRP EACH EYE ×2 (04:26→17:19)
--- NOTE | 2018-07-03 04:56 | NURSING ---
Pt remains in droplet isolation during this shift. All care provided in room
[2018-07-03] MEDS: Multivitamins,Therapeutic Tablet 1 TABLET PO (09:17)
[2018-07-03] MEDS: Iron Polysaccharide Complex 150 MG CAPSULE PO (09:17)
[2018-07-03] MEDS: Aspirin E.C. 81 MG Tablet PO (09:17)
[2018-07-03] MEDS: Hydrocortisone 10 MG Tablet PO (09:17)
[2018-07-03] MEDS: Acetaminophen 500 MG Tablet 1000 MG PO ×2 (11:42→20:56)
--- NOTE | 2018-07-03 13:06 | NURSING ---
Pt remains in droplet isolation this shift. Nursing care provided in room.
--- NOTE | 2018-07-03 14:33 | NURSING ---
Wound vac dressing changed at this time per order, pt tolerated well.
[2018-07-03 15:35] VITALS: BP 111/51; PULSE 85; RESP 22; TEMP 35.8; O2SAT 95
[2018-07-03 16:26] VITALS: O2SAT 98
[2018-07-03] MEDS: Hydrocortisone 10 MG Tablet 7.5 MG PO (17:12)
[2018-07-03] MEDS: Fluticasone/Salmeterol 232-14 Inhaler 1 PUFF IH (17:19)
[2018-07-03] MEDS: guaiFENesin 600 MG Tablet PO (17:58)
[2018-07-03] MEDS: Pravastatin 40 MG Tablet PO (20:55)
[2018-07-03] MEDS: Amitriptyline 25 MG Tablet 50 MG PO (20:55)
[2018-07-03] MEDS: Gabapentin 100 MG Capsule PO (20:55)
[2018-07-03] MEDS: Polyethylene Glycol 3350 17 GM PACKET PO (20:55)
[2018-07-04] MEDS: Lidocaine 5% Patch 1 PATCH TOPICAL (05:14)
[2018-07-04] MEDS: Furosemide 20 MG Tablet PO ×2 (05:15→16:41)
[2018-07-04] MEDS: guaiFENesin 600 MG Tablet PO ×2 (05:15→16:41)
[2018-07-04] MEDS: oxyCODONE 5 MG Tablet 10 MG PO ×4 (05:15→21:01)
[2018-07-04] MEDS: Benzonatate 100 MG Capsule PO ×3 (05:15→21:01)
[2018-07-04] MEDS: Levothyroxine 88 MCG Tablet PO (05:15)
[2018-07-04] MEDS: Citalopram 20 MG Tablet PO (05:15)
[2018-07-04] MEDS: Carvedilol 6.25 MG Tablet PO ×2 (05:15→16:41)
[2018-07-04] MEDS: Fluticasone 0.05% 1 SPRAY NASAL.SRY 2 SPRAY NASAL (05:40)
[2018-07-04] MEDS: Fluticasone/Salmeterol 232-14 Inhaler 1 PUFF IH ×2 (05:41→21:06)
[2018-07-04] MEDS: BRIMONIDINE 0.15% 5 ML Bottle 1 DRP EACH EYE ×2 (05:41→16:46)
[2018-07-04 05:43] VITALS: BP 99/70; PULSE 86; RESP 18; TEMP 36.6; O2SAT 91
[2018-07-04 07:21] VITALS: O2SAT 97
[2018-07-04 07:21] LABS: Absolute Lymphocyte Count 1.29 X10^3/ul (0.83-4.51); Absolute Neutrophil Count 9.4 X10^3/uL (2.0-7.7); Basophil# 0.03 X10^3/uL; Basophil% 0.2 % (0-1); Hematocrit 28.7 % (37-47); Lymphocyte # 1.29 X10^3/ul (4.0); Lymphocyte % 10.3 % (19-41); Mean Corp Hgb Conc 31.4 g/gl (32-36); Mean Corpuscular Hgb 32.8 pg (27.0-32.0); Mean Corpuscular Volume 104.7 fL (81-99); Mean Platelet Vol. 8.7 fl (6.2-12.0); Monocyte# 1.29 X10^3/uL; Monocyte% 10.3 % (0-10); Neutrophil # 9.39 X10^3/uL (2.7-7.7); Neutrophil % 74.9 % (47-70); Platelet Count 234 K/mm3 (150-450); RBC Distribution Width CV 19.6 % (11.6-14.6); RBC Distribution Width SD 72.4 fl (35.1-43.9); Red Blood Count 2.74 M/mm3 (4.2-5.4); White Blood Count 12.5 K/mm3 (4.4-11.0)
[2018-07-04 07:22] LABS: Differential Indicated SCAN CRITERIA MET; POSITIVE COUNT NO; POSITIVE DIFFERENTIAL NO; POSITIVE MORPHOLOGY YES
[2018-07-04 07:41] LABS: Anion Gap 9 (5-15); BUN 57 mg/dL (7-18); BUN/Creat Ratio 49.6 RATIO (10-20); Calcium,Total 8.5 mg/dL (8.5-10.1); Chloride 99 mmol/L (98-107); Creatinine, Serum 1.15 mg/dL (0.55-1.02); EST Glomerular Filtration Rate 49 mL/min (>60); Est Glom Filt Rate - Afr Amer 59 mL/min (>60); Estimated Creatinine Clearance 38.96 ml/min; Glucose 79 mg/dL (74-106); Potassium 3.8 mmol/L (3.5-5.1); Sodium Level 139 mmol/L (136-145)
[2018-07-04 07:52] LABS: Anisocytosis 1+; Hypochromasia 2+; Macrocytosis RARE; Platelet Estimate ADEQUATE (ADEQ); Polychromasia RARE
[2018-07-04] MEDS: Hydrocortisone 10 MG Tablet PO (08:58)
[2018-07-04] MEDS: Magnesium Oxide 400 MG Tablet PO (08:58)
[2018-07-04] MEDS: Iron Polysaccharide Complex 150 MG CAPSULE PO (08:58)
[2018-07-04] MEDS: Aspirin E.C. 81 MG Tablet PO (08:58)
[2018-07-04] MEDS: Multivitamins,Therapeutic Tablet 1 TABLET PO (08:58)
[2018-07-04] MEDS: BENZOCAINE/MENTHOL 1 LOZENGE MUCOUS MEM (10:37)
[2018-07-04] MEDS: Acetaminophen 500 MG Tablet 1000 MG PO (15:06)
[2018-07-04] MEDS: guaiFENesin Dm 10 ML UDC 5 ML PO (15:09)
[2018-07-04 16:00] VITALS: BP 106/48; PULSE 107; RESP 22; TEMP 37.3; O2SAT 96
[2018-07-04] MEDS: Hydrocortisone 10 MG Tablet 7.5 MG PO (16:40)
[2018-07-04 16:42] VITALS: PULSE 89; RESP 16
[2018-07-04] MEDS: Albuterol 2.5 MG/3 ML VIAL.NEB. INHALATION (16:42)
[2018-07-04] MEDS: Gabapentin 100 MG Capsule PO (21:01)
[2018-07-04] MEDS: Amitriptyline 25 MG Tablet 50 MG PO (21:01)
[2018-07-04] MEDS: Pravastatin 40 MG Tablet PO (21:01)
[2018-07-04] MEDS: Polyethylene Glycol 3350 17 GM PACKET PO (21:02)
[2018-07-05] MEDS: guaiFENesin Dm 10 ML UDC 5 ML PO (01:10)
[2018-07-05] MEDS: BENZOCAINE/MENTHOL 1 LOZENGE MUCOUS MEM ×4 (05:16→22:06)
[2018-07-05] MEDS: oxyCODONE 5 MG Tablet 10 MG PO ×4 (05:16→21:59)
[2018-07-05] MEDS: Lidocaine 5% Patch 1 PATCH TOPICAL (05:16)
[2018-07-05] MEDS: guaiFENesin 600 MG Tablet PO ×2 (05:16→17:20)
[2018-07-05] MEDS: Levothyroxine 88 MCG Tablet PO (05:17)
[2018-07-05] MEDS: Benzonatate 100 MG Capsule PO ×3 (05:17→21:58)
[2018-07-05] MEDS: metOLazone 5 MG Tablet PO (05:17)
[2018-07-05] MEDS: Furosemide 20 MG Tablet PO ×2 (05:17→17:20)
[2018-07-05] MEDS: Carvedilol 6.25 MG Tablet PO ×2 (05:17→17:20)
[2018-07-05] MEDS: Citalopram 20 MG Tablet PO (05:17)
[2018-07-05] MEDS: Fluticasone/Salmeterol 232-14 Inhaler 1 PUFF IH ×2 (05:19→22:01)
[2018-07-05] MEDS: Fluticasone 0.05% 1 SPRAY NASAL.SRY 2 SPRAY NASAL (05:19)
[2018-07-05] MEDS: LUBIPROSTONE 8 MCG CAPSULE PO (05:22)
[2018-07-05] MEDS: BRIMONIDINE 0.15% 5 ML Bottle 1 DRP EACH EYE ×2 (05:25→17:22)
[2018-07-05] MEDS: Multivitamins,Therapeutic Tablet 1 TABLET PO (08:44)
[2018-07-05] MEDS: Iron Polysaccharide Complex 150 MG CAPSULE PO (08:45)
[2018-07-05] MEDS: Aspirin E.C. 81 MG Tablet PO (08:45)
[2018-07-05] MEDS: Hydrocortisone 10 MG Tablet PO (08:45)
[2018-07-05 11:08] VITALS: O2SAT 96
[2018-07-05 11:09] VITALS: O2SAT 97
[2018-07-05 11:20] VITALS: PULSE 94; RESP 18
[2018-07-05] MEDS: Albuterol 2.5 MG/3 ML VIAL.NEB. INHALATION (11:20)
[2018-07-05] MEDS: Acetaminophen 500 MG Tablet 1000 MG PO ×2 (13:28→21:58)
[2018-07-05 16:00] VITALS: BP 92/56; PULSE 76; RESP 20; TEMP 37.1; O2SAT 94
[2018-07-05] MEDS: Hydrocortisone 10 MG Tablet 7.5 MG PO (17:19)
[2018-07-05] MEDS: Pravastatin 40 MG Tablet PO (21:58)
[2018-07-05] MEDS: Polyethylene Glycol 3350 17 GM PACKET PO (21:58)
[2018-07-05] MEDS: Amitriptyline 25 MG Tablet 50 MG PO (21:59)
[2018-07-05] MEDS: Gabapentin 100 MG Capsule PO (21:59)
[2018-07-06] MEDS: BENZOCAINE/MENTHOL 1 LOZENGE MUCOUS MEM ×3 (01:40→21:15)
[2018-07-06 06:00] VITALS: BP 95/60; PULSE 88; RESP 18; TEMP 36.3; O2SAT 95
[2018-07-06 06:31] LABS: Anion Gap 9 (5-15); BUN 70 mg/dL (7-18); BUN/Creat Ratio 51.1 RATIO (10-20); Calcium,Total 8.5 mg/dL (8.5-10.1); Chloride 99 mmol/L (98-107); Creatinine, Serum 1.37 mg/dL (0.55-1.02); EST Glomerular Filtration Rate 40 mL/min (>60); Est Glom Filt Rate - Afr Amer 48 mL/min (>60); Glucose 83 mg/dL (74-106); Potassium 4.1 mmol/L (3.5-5.1); Sodium Level 140 mmol/L (136-145)
[2018-07-06] MEDS: Furosemide 20 MG Tablet PO ×2 (06:42→16:46)
[2018-07-06] MEDS: Benzonatate 100 MG Capsule PO ×3 (06:42→21:15)
[2018-07-06] MEDS: Acetaminophen 500 MG Tablet 1000 MG PO ×3 (06:42→21:15)
[2018-07-06] MEDS: Levothyroxine 88 MCG Tablet PO (06:42)
[2018-07-06] MEDS: oxyCODONE 5 MG Tablet 10 MG PO ×4 (06:42→22:26)
[2018-07-06] MEDS: guaiFENesin 600 MG Tablet PO ×2 (06:42→16:46)
[2018-07-06] MEDS: Carvedilol 6.25 MG Tablet PO ×2 (06:42→16:46)
[2018-07-06] MEDS: Citalopram 20 MG Tablet PO (06:42)
[2018-07-06] MEDS: Lidocaine 5% Patch 1 PATCH TOPICAL (06:43)
[2018-07-06] MEDS: Fluticasone/Salmeterol 232-14 Inhaler 1 PUFF IH ×2 (06:45→21:21)
[2018-07-06] MEDS: Fluticasone 0.05% 1 SPRAY NASAL.SRY 2 SPRAY NASAL (06:45)
[2018-07-06] MEDS: BRIMONIDINE 0.15% 5 ML Bottle 1 DRP EACH EYE ×2 (06:46→16:46)
[2018-07-06 07:38] LABS: Absolute Lymphocyte Count 1.23 X10^3/ul (0.83-4.51); Absolute Neutrophil Count 7.3 X10^3/uL (2.0-7.7); Basophil# 0.02 X10^3/uL; Basophil% 0.2 % (0-1); Differential Indicated SCAN CRITERIA MET; Eosinophil# 0.31 X10^3/uL; Hematocrit 26.4 % (37-47); Hemoglobin 8.1 g/dl (12.0-15.0); Lymphocyte # 1.23 X10^3/ul (4.0); Mean Corp Hgb Conc 30.7 g/gl (32-36); Mean Corpuscular Hgb 33.3 pg (27.0-32.0); Mean Corpuscular Volume 108.6 fL (81-99); Mean Platelet Vol. 9.4 fl (6.2-12.0); Monocyte# 1.35 X10^3/uL; Monocyte% 13.2 % (0-10); Neutrophil # 7.26 X10^3/uL (2.7-7.7); Neutrophil % 71.2 % (47-70); POSITIVE COUNT NO; POSITIVE DIFFERENTIAL NO; POSITIVE MORPHOLOGY YES; Platelet Count 244 K/mm3 (150-450); RBC Distribution Width CV 19.4 % (11.6-14.6); RBC Distribution Width SD 73.4 fl (35.1-43.9); Red Blood Count 2.43 M/mm3 (4.2-5.4); White Blood Count 10.2 K/mm3 (4.4-11.0)
[2018-07-06] MEDS: Hydrocortisone 10 MG Tablet PO (08:17)
[2018-07-06] MEDS: Magnesium Oxide 400 MG Tablet PO (08:17)
[2018-07-06] MEDS: Iron Polysaccharide Complex 150 MG CAPSULE PO (08:17)
[2018-07-06] MEDS: Aspirin E.C. 81 MG Tablet PO (08:17)
[2018-07-06] MEDS: Multivitamins,Therapeutic Tablet 1 TABLET PO (08:17)
[2018-07-06 08:51] VITALS: PULSE 88; RESP 20
[2018-07-06] MEDS: Albuterol 2.5 MG/3 ML VIAL.NEB. INHALATION (08:51)
--- NOTE | 2018-07-06 11:08 | NURSING ---
wound photo: right anterior knee
--- NOTE | 2018-07-06 11:08 | NURSING ---
wound photo: right medial knee
--- NOTE | 2018-07-06 11:34 | MDS.RN ---
Information for the mds was obtained from review of the clinical record, interview of resident, staff, and direct observation of resident's care.
--- NOTE | 2018-07-06 12:30 | NURSING ---
Pt remains in droplet isolation this shift. All care provided in room.
--- NOTE | 2018-07-06 12:52 | CASEMGMT ---
Insurance Clinical information sent. Pending continued stay approval at this time. Auth#[id number] TIFFANY Gorman, GROUP SEGMENT CONSULTANT
[2018-07-06] MEDS: guaiFENesin Dm 10 ML UDC 5 ML PO ×2 (15:08→21:15)
[2018-07-06 15:20] VITALS: BP 92/55; PULSE 78; RESP 22; TEMP 36.3; O2SAT 98
[2018-07-06 16:04] VITALS: O2SAT 96
[2018-07-06] MEDS: Hydrocortisone 10 MG Tablet 5 MG PO (16:46)
--- NOTE | 2018-07-06 17:58 | NURSING ---
DR. BIRD REVIEWED AM LABS, CHECK H+H WED.
[2018-07-06] MEDS: Pravastatin 40 MG Tablet PO (21:15)
[2018-07-06] MEDS: Gabapentin 100 MG Capsule PO (21:15)
[2018-07-06] MEDS: Amitriptyline 25 MG Tablet 50 MG PO (21:15)
[2018-07-06] MEDS: Polyethylene Glycol 3350 17 GM PACKET PO (21:23)
--- NOTE | 2018-07-06 23:44 | NURSING ---
All care during shift provided in pt room d/t pt in droplet precautions for rhinovirus.
[2018-07-07] MEDS: guaiFENesin Dm 10 ML UDC 5 ML PO ×3 (03:46→21:37)
[2018-07-07] MEDS: BENZOCAINE/MENTHOL 1 LOZENGE MUCOUS MEM ×2 (03:46→21:37)
[2018-07-07] MEDS: oxyCODONE 5 MG Tablet 10 MG PO ×3 (04:07→21:38)
[2018-07-07 04:22] VITALS: BP 117/75; PULSE 85; RESP 18; TEMP 36.8; O2SAT 93
[2018-07-07 04:40] VITALS: PULSE 90; RESP 20
[2018-07-07] MEDS: Albuterol 2.5 MG/3 ML VIAL.NEB. INHALATION ×2 (04:40→19:55)
[2018-07-07] MEDS: Furosemide 20 MG Tablet PO ×2 (06:41→17:42)
[2018-07-07] MEDS: Benzonatate 100 MG Capsule PO ×3 (06:41→21:37)
[2018-07-07] MEDS: Carvedilol 6.25 MG Tablet PO ×2 (06:41→17:43)
[2018-07-07] MEDS: Levothyroxine 88 MCG Tablet PO (06:41)
[2018-07-07] MEDS: Citalopram 20 MG Tablet PO (06:41)
[2018-07-07] MEDS: Lidocaine 5% Patch 1 PATCH TOPICAL (06:41)
[2018-07-07] MEDS: Acetaminophen 500 MG Tablet 1000 MG PO ×3 (06:41→21:37)
[2018-07-07] MEDS: guaiFENesin 600 MG Tablet PO ×2 (06:43→17:42)
[2018-07-07] MEDS: BRIMONIDINE 0.15% 5 ML Bottle 1 DRP EACH EYE ×2 (06:44→17:45)
[2018-07-07] MEDS: Fluticasone/Salmeterol 232-14 Inhaler 1 PUFF IH ×2 (06:45→21:40)
[2018-07-07] MEDS: Fluticasone 0.05% 1 SPRAY NASAL.SRY 2 SPRAY NASAL (06:45)
--- NOTE | 2018-07-07 07:41 | NURSING ---
Pt requesting to speak with Pastor Fortune from [facility] in [place], VM left with [facility] .
--- NOTE | 2018-07-07 07:42 | NURSING ---
During morning medication pass, pt removed a piece of filling with tooth particle on. Pt stated, The dentist wasn't sure if that was going to hold. Pt denied any sharp edges from filling removal. Pt denied pain. No visible injury to tongue or gums. Will update Dr Lan.
[2018-07-07] MEDS: Multivitamins,Therapeutic Tablet 1 TABLET PO (08:17)
[2018-07-07] MEDS: Aspirin E.C. 81 MG Tablet PO (08:17)
[2018-07-07] MEDS: Iron Polysaccharide Complex 150 MG CAPSULE PO (08:17)
[2018-07-07] MEDS: Hydrocortisone 10 MG Tablet PO (08:17)
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
--- NOTE | 2018-07-07 08:46 | NURSING ---
Dr Lan in to assess pt d/t more tired, moist harsh cough, unable to expectorate. New order for chest xray, ATB and zpak started, chest xray, & administer 2 units PRBC's.
[2018-07-07] MEDS: Azithromycin 250 MG Tablet 500 MG PO (09:39)
--- NOTE | 2018-07-07 09:40 | NURSING ---
pt remains in isolation in room for all treatments/care.
--- NOTE | 2018-07-07 09:50 | CASEMGMT ---
Brief interview for mental status (BIMS) and resident mood interview (PHQ-9) completed on this day. BIMS score 1315. PHQ-9 score 10/07
--- NOTE | 2018-07-07 09:57 | CASEMGMT ---
Insurance Continued stay approved with next update due on 07/10/18. Auth#[id number] TIFFANY Gorman, [employer]
--- NOTE | 2018-07-07 10:24 | RAD_ITS ---
STUDY: X-RAY CHEST REASON FOR EXAM: Female, 78 years old. Shortness of breath. TECHNIQUE: PA and lateral views of the chest. COMPARISON: Comparison is made with prior study dated July 02, 2018. FINDINGS: Mild degree of residual mastoid congestion and mild CHF. There has been improvement. There now is evidence of increased markings at the right lung base with blunting the right costophrenic angle. Improved aeration of the left lung base with residual blunting of left costophrenic angle. Sternal cerclage wires and vascular clips are present from a prior sternotomy and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 bypass graft procedure (CABG). 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 Mild cardiomegaly. Normal mediastinum and juana. Normal visualized pulmonary arteries. There is atherosclerotic tortuosity of the aortic arch and descending thoracic aorta. Normal visualized thoracic spine. Normal visualized ribs, clavicles, and shoulders. There is no demonstrated abnormality of the visualized soft tissue structures of the upper abdomen. RAD/Chest PA and Lateral IMPRESSION: Improvement in the CHF with residual changes of both lung bases and small bilateral effusions. Electronically Signed: Ed Fink MD at 10:47 EST Tel [phone], Service support ,
--- NOTE | 2018-07-07 15:13 | CHAPLAIN ---
Type of Pastoral Visit ___ Initial Visit _x__ Follow-up Visit ___ On-call Visit ___ General Patient Visit ___ Spiritual Assessment ___ Family Conference ___ Bereavement ___ Rapid Response ___ Code Blue ___ Other (describe below) Pastoral Care Referral From _x__ Patient ___ Family _x__ Nurse ___ Physician ___ Spine Specialist ___ Farmworkers ___ Other (describe below) Sacrament/Intervention _x__ Active listening ___ Anointing ___ Jain ___ Bereavement ___ Communion ___ Shelly exploration ___ ___ Life review _x__ Prayer ___ Reconciliation ___ Sacrament of Sick _x__ Supportive presence ___ Wedding ___ Other (describe below) Pastoral Comments patient requested spiritual care and RN notified buggyman; pt would appreciate a call to her sikh to ask for her dental insurance biller to also come see her;
[2018-07-07 15:42] VITALS: BP 90/54; PULSE 86; RESP 18; TEMP 35.8; O2SAT 95
[2018-07-07] MEDS: Cefdinir 300 MG Capsule PO (17:42)
[2018-07-07] MEDS: Hydrocortisone 10 MG Tablet 5 MG PO (17:43)
[2018-07-07 20:09] VITALS: PULSE 50; RESP 22
[2018-07-07] MEDS: Amitriptyline 25 MG Tablet 50 MG PO (21:37)
[2018-07-07] MEDS: Pravastatin 40 MG Tablet PO (21:37)
[2018-07-07] MEDS: Polyethylene Glycol 3350 17 GM PACKET PO (21:38)
[2018-07-07] MEDS: Gabapentin 100 MG Capsule PO (21:38)
[2018-07-07 23:00] VITALS: BP 102/61; PULSE 105; RESP 24; TEMP 38.1; O2SAT 93
--- NOTE | 2018-07-07 23:19 | NURSING ---
230 ARTS AND CRAFTS TEACHER reporting concern with pt, RN into [facility]. ARTS AND CRAFTS TEACHER informed this nurse pt stated she felt like she was going to drop. Resp 24 93% NC2L. Oral temp 100.5, tylenol perviously administered at 2136. B/P 102/61. HR 105 irreg. Pt with rhonchi to upper lobes greater anterior vs posterior, wheezes lower lobes. Pt AOx3 with confusion noted. Perviously staff entered room to find patient talking to an individual, no one else noted in room. Pt c/o being cold earlier in evening, pt now c/o being extremely warm. Dr Lan notified, N.O. blood cultures X2, straight cath UA and C &S, and resp panel. Resp therapy notified.
--- NOTE | 2018-07-08 01:28 | NURSING ---
All care during shift provided to pt in room d/t droplet precautions from rhinovirus
--- NOTE | 2018-07-08 01:41 | NURSING ---
PLASMA PROCESSOR applied CPAP mask at 2330. During rounds at 0100 CPAP mask noted lying beside pt in bed. This RN reapplied CPAP mask. Pt reported CPAP mask comfortable, no leaks noted. Pt encouraged to leave CPAP mask on for respiratory benefits. Pt reassessed at 0130, CPAP mask noted on night stand. Reeducated provided to pt on importance on CPAP machine. CPAP mask reapplied at this time. Will continue to monitor and asses.
[2018-07-08 02:01] LABS: Absolute Lymphocyte Count 0.72 X10^3/ul (0.83-4.51); Absolute Neutrophil Count 9.1 X10^3/uL (2.0-7.7); Basophil# 0.01 X10^3/uL; Basophil% 0.1 % (0-1); Eosinophil# 0.31 X10^3/uL; Eosinophils% 2.7 % (0-5); Hematocrit 26.9 % (37-47); Hemoglobin 8.5 g/dl (12.0-15.0); Lymphocyte # 0.72 X10^3/ul (4.0); Lymphocyte % 6.2 % (19-41); Mean Corp Hgb Conc 31.6 g/gl (32-36); Mean Corpuscular Hgb 32.9 pg (27.0-32.0); Mean Corpuscular Volume 104.3 fL (81-99); Mean Platelet Vol. 8.6 fl (6.2-12.0); Monocyte# 1.42 X10^3/uL; Monocyte% 12.3 % (0-10); Neutrophil # 9.06 X10^3/uL (2.7-7.7); Neutrophil % 78.5 % (47-70); Platelet Count 265 K/mm3 (150-450); RBC Distribution Width CV 18.8 % (11.6-14.6); RBC Distribution Width SD 70.8 fl (35.1-43.9); Red Blood Count 2.58 M/mm3 (4.2-5.4); White Blood Count 11.5 K/mm3 (4.4-11.0)
[2018-07-08 02:02] LABS: Differential Indicated SCAN CRITERIA MET; POSITIVE COUNT NO; POSITIVE DIFFERENTIAL NO; POSITIVE MORPHOLOGY YES
[2018-07-08 02:06] LABS: BUN 79 mg/dL (7-18); Creatinine, Serum 1.45 mg/dL (0.55-1.02); Glucose 104 mg/dL (74-106)
[2018-07-08 02:07] LABS: Anion Gap 6 (5-15); BUN/Creat Ratio 54.5 RATIO (10-20); Calcium,Total 8.3 mg/dL (8.5-10.1); Chloride 99 mmol/L (98-107); EST Glomerular Filtration Rate 37 mL/min (>60); Est Glom Filt Rate - Afr Amer 45 mL/min (>60); Potassium 4.1 mmol/L (3.5-5.1); Sodium Level 133 mmol/L (136-145)
[2018-07-08 02:19] LABS: Anisocytosis 1+
[2018-07-08 02:30] LABS: Macrocytosis RARE
[2018-07-08 02:35] LABS: Polychromasia RARE
[2018-07-08 03:06] LABS: Bacteria 0 SEEN /hpf (None Seen); Red Blood Cells-Urine 0 SEEN /hpf (0-5); Squamous Epithelial Cells - UA 0 SEEN /hpf (5-10); White Blood Cells 0 SEEN /hpf (0-5)
[2018-07-08 03:17] LABS: Color, Urine Yellow (Yellow); Glucose, Dipstick Normal (Normal); Ketone-Dipstick Negative (Negative); Leukocyte Esterase-Dipstick Negative /ul (Negative); Nitrite-Dipstick Negative (Negative); Occult Blood-Urine Negative /ul (Negative); Protein-Dipstick 15 mg/dl (Negative); Urine Bilirubin Dipstick Negative (Negative); Urine Clarity Clear (Clear); Urine Urobilinogen Normal (Normal)
[2018-07-08 03:19] LABS: Hyaline Cast 0-5 SEEN /lpf (0-5); Mucous, Urine RARE /hpf (<or=2+)
[2018-07-08 06:00] VITALS: BP 98/62; PULSE 107; RESP 22; TEMP 36.8; O2SAT 93
[2018-07-08] MEDS: Benzonatate 100 MG Capsule PO ×2 (06:22→21:30)
[2018-07-08] MEDS: guaiFENesin 600 MG Tablet PO ×2 (06:22→17:32)
[2018-07-08] MEDS: Carvedilol 6.25 MG Tablet PO ×2 (06:22→17:32)
[2018-07-08] MEDS: Furosemide 20 MG Tablet PO ×2 (06:22→17:34)
[2018-07-08] MEDS: Acetaminophen 500 MG Tablet 1000 MG PO ×2 (06:22→21:30)
[2018-07-08] MEDS: metOLazone 5 MG Tablet PO (06:22)
[2018-07-08] MEDS: Cefdinir 300 MG Capsule PO ×2 (06:22→17:32)
[2018-07-08] MEDS: Levothyroxine 88 MCG Tablet PO (06:22)
[2018-07-08] MEDS: Citalopram 20 MG Tablet PO (06:22)
[2018-07-08] MEDS: oxyCODONE 5 MG Tablet 10 MG PO ×2 (06:25→21:30)
[2018-07-08] MEDS: guaiFENesin Dm 10 ML UDC 5 ML PO ×2 (06:25→17:30)
[2018-07-08] MEDS: Lidocaine 5% Patch 1 PATCH TOPICAL (06:25)
[2018-07-08] MEDS: Fluticasone 0.05% 1 SPRAY NASAL.SRY 2 SPRAY NASAL (06:46)
[2018-07-08] MEDS: Fluticasone/Salmeterol 232-14 Inhaler 1 PUFF IH ×2 (06:47→21:33)
[2018-07-08] MEDS: Magnesium Oxide 400 MG Tablet PO (09:18)
[2018-07-08] MEDS: Iron Polysaccharide Complex 150 MG CAPSULE PO (09:19)
[2018-07-08] MEDS: Multivitamins,Therapeutic Tablet 1 TABLET PO (09:19)
[2018-07-08] MEDS: Hydrocortisone 10 MG Tablet PO (09:19)
[2018-07-08] MEDS: Azithromycin 250 MG Tablet PO (09:19)
[2018-07-08] MEDS: Aspirin E.C. 81 MG Tablet PO (09:19)
[2018-07-08] MEDS: BRIMONIDINE 0.15% 5 ML Bottle 1 DRP EACH EYE ×2 (09:20→17:35)
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
--- NOTE | 2018-07-08 10:24 | NURSING ---
Dr. Armendariz's PA in to see patient. Possible scope tomorrow.
--- NOTE | 2018-07-08 10:31 | NURSING ---
Pt taken by wheelchair to infusion center for blood transfusion.
[2018-07-08 16:00] VITALS: PULSE 99; RESP 21; TEMP 37.2; O2SAT 97
[2018-07-08] MEDS: Hydrocortisone 10 MG Tablet 5 MG PO (17:32)
--- NOTE | 2018-07-08 18:14 | NURSING ---
Pt returned from blood transfusion, resting in bed eating dinner. Dr. Lan reviewed respiratory panel, NNO.
[2018-07-08] MEDS: Amitriptyline 25 MG Tablet 50 MG PO (21:30)
[2018-07-08] MEDS: Gabapentin 100 MG Capsule PO (21:30)
[2018-07-08] MEDS: Pravastatin 40 MG Tablet PO (21:30)
[2018-07-08] MEDS: Polyethylene Glycol 3350 17 GM PACKET PO (21:30)
[2018-07-08] MEDS: Menthol/Lanolin/Calamine/Znox 113 GM Tube 1 APPLIC TOPICAL (21:36)
--- NOTE | 2018-07-08 21:58 | NURSING ---
Pt trying to climb out of bed unassisted. Pt unsure of where she was going. Pt had to be reoriented to place and time. PA applied for safety. Pt repositioned in bed with call light in reach. Pt refusing cpap mask at this time d/t she states it makes her cough more. O2 2L on.
[2018-07-08 22:09] VITALS: BP 125/81; PULSE 116; RESP 22; TEMP 36.8; O2SAT 94
[2018-07-08] MEDS: Albuterol 2.5 MG/3 ML VIAL.NEB. INHALATION (22:10)
[2018-07-08 22:11] VITALS: PULSE 109; RESP 20
[2018-07-09] MEDS: Citalopram 20 MG Tablet PO (05:25)
[2018-07-09] MEDS: Acetaminophen 500 MG Tablet 1000 MG PO ×3 (05:25→21:12)
[2018-07-09] MEDS: Pantoprazole Sodium 40 MG Tablet PO (05:25)
[2018-07-09] MEDS: guaiFENesin 600 MG Tablet PO ×2 (05:25→17:33)
[2018-07-09] MEDS: Levothyroxine 88 MCG Tablet PO (05:25)
[2018-07-09] MEDS: Cefdinir 300 MG Capsule PO ×2 (05:25→17:35)
[2018-07-09] MEDS: Lidocaine 5% Patch 1 PATCH TOPICAL (05:25)
[2018-07-09] MEDS: Carvedilol 6.25 MG Tablet PO ×2 (05:25→17:33)
[2018-07-09] MEDS: Furosemide 20 MG Tablet PO ×2 (05:25→17:34)
[2018-07-09] MEDS: Fluticasone 0.05% 1 SPRAY NASAL.SRY 2 SPRAY NASAL (05:25)
[2018-07-09] MEDS: Benzonatate 100 MG Capsule PO ×3 (05:26→21:12)
[2018-07-09] MEDS: BRIMONIDINE 0.15% 5 ML Bottle 1 DRP EACH EYE ×2 (05:26→17:36)
[2018-07-09] MEDS: Menthol/Lanolin/Calamine/Znox 113 GM Tube 1 APPLIC TOPICAL ×2 (05:31→21:12)
[2018-07-09] MEDS: Fluticasone/Salmeterol 232-14 Inhaler 1 PUFF IH ×2 (05:31→21:16)
[2018-07-09 05:34] VITALS: BP 114/71; PULSE 99; RESP 23; TEMP 37.1; O2SAT 95
[2018-07-09 06:15] LABS: Hematocrit 33.3 % (37-47); Hemoglobin 10.6 g/dl (12.0-15.0)
[2018-07-09] MEDS: Multivitamins,Therapeutic Tablet 1 TABLET PO (08:50)
[2018-07-09] MEDS: Azithromycin 250 MG Tablet PO (08:50)
[2018-07-09] MEDS: Aspirin E.C. 81 MG Tablet PO (08:50)
[2018-07-09] MEDS: Hydrocortisone 10 MG Tablet PO (08:51)
[2018-07-09] MEDS: BENZOCAINE/MENTHOL 1 LOZENGE MUCOUS MEM ×2 (08:51→21:12)
[2018-07-09] MEDS: Iron Polysaccharide Complex 150 MG CAPSULE PO (08:51)
[2018-07-09] MEDS: oxyCODONE 5 MG Tablet 10 MG PO ×3 (08:51→21:12)
[2018-07-09 15:07] VITALS: BP 107/72; PULSE 107; RESP 28; TEMP 36.5; O2SAT 97
[2018-07-09] MEDS: guaiFENesin Dm 10 ML UDC 5 ML PO (15:43)
[2018-07-09] MEDS: Hydrocortisone 10 MG Tablet 5 MG PO (17:33)
[2018-07-09] MEDS: Pravastatin 40 MG Tablet PO (21:12)
[2018-07-09] MEDS: Amitriptyline 25 MG Tablet 50 MG PO (21:12)
[2018-07-09] MEDS: Gabapentin 100 MG Capsule PO (21:12)
[2018-07-10] MEDS: Levothyroxine 88 MCG Tablet PO (05:30)
[2018-07-10] MEDS: guaiFENesin 600 MG Tablet PO ×2 (05:31→16:35)
[2018-07-10] MEDS: Benzonatate 100 MG Capsule PO ×3 (05:31→21:06)
[2018-07-10] MEDS: Acetaminophen 500 MG Tablet 1000 MG PO ×3 (05:31→21:05)
[2018-07-10] MEDS: Lidocaine 5% Patch 1 PATCH TOPICAL (05:31)
[2018-07-10] MEDS: Cefdinir 300 MG Capsule PO ×2 (05:31→16:35)
[2018-07-10] MEDS: Citalopram 20 MG Tablet PO (05:31)
[2018-07-10] MEDS: Carvedilol 6.25 MG Tablet PO ×2 (05:31→15:55)
[2018-07-10] MEDS: Pantoprazole Sodium 40 MG Tablet PO (05:31)
[2018-07-10] MEDS: BRIMONIDINE 0.15% 5 ML Bottle 1 DRP EACH EYE ×2 (05:37→16:39)
[2018-07-10] MEDS: Fluticasone/Salmeterol 232-14 Inhaler 1 PUFF IH ×2 (05:37→21:04)
[2018-07-10] MEDS: Fluticasone 0.05% 1 SPRAY NASAL.SRY 2 SPRAY NASAL (05:38)
[2018-07-10] MEDS: Furosemide 20 MG Tablet PO ×2 (05:38→16:35)
[2018-07-10] MEDS: Menthol/Lanolin/Calamine/Znox 113 GM Tube 1 APPLIC TOPICAL ×2 (05:39→21:13)
[2018-07-10 06:00] VITALS: BP 111/71; PULSE 99; RESP 20; TEMP 36.8; O2SAT 97
[2018-07-10 06:10] LABS: Anion Gap 7 (5-15); BUN 63 mg/dL (7-18); BUN/Creat Ratio 57.3 RATIO (10-20); Calcium,Total 8.2 mg/dL (8.5-10.1); Chloride 100 mmol/L (98-107); EST Glomerular Filtration Rate 51 mL/min (>60); Est Glom Filt Rate - Afr Amer 62 mL/min (>60); Estimated Creatinine Clearance 40.73 ml/min; Glucose 92 mg/dL (74-106); Potassium 3.2 mmol/L (3.5-5.1); Sodium Level 139 mmol/L (136-145)
--- NOTE | 2018-07-10 06:11 | PCM.PN.BLA ---
Progress Note Planning for EGD on Friday Will re-assess pt status on Friday
[2018-07-10 07:15] LABS: Absolute Lymphocyte Count 1.03 X10^3/ul (0.83-4.51); Absolute Neutrophil Count 6.1 X10^3/uL (2.0-7.7); Basophil# 0.02 X10^3/uL; Basophil% 0.2 % (0-1); Eosinophil# 0.49 X10^3/uL; Eosinophils% 5.8 % (0-5); Hematocrit 33.7 % (37-47); Hemoglobin 10.7 g/dl (12.0-15.0); Lymphocyte # 1.03 X10^3/ul (4.0); Lymphocyte % 12.2 % (19-41); Mean Corp Hgb Conc 31.8 g/gl (32-36); Mean Corpuscular Hgb 31.8 pg (27.0-32.0); Mean Corpuscular Volume 100.3 fL (81-99); Mean Platelet Vol. 8.7 fl (6.2-12.0); Monocyte# 0.82 X10^3/uL; Monocyte% 9.7 % (0-10); Neutrophil # 6.05 X10^3/uL (2.7-7.7); Neutrophil % 71.6 % (47-70); Platelet Count 272 K/mm3 (150-450); RBC Distribution Width SD 67.3 fl (35.1-43.9); Red Blood Count 3.36 M/mm3 (4.2-5.4); White Blood Count 8.5 K/mm3 (4.4-11.0)
[2018-07-10 07:16] LABS: Differential Indicated SCAN CRITERIA MET; POSITIVE COUNT NO; POSITIVE DIFFERENTIAL NO; POSITIVE MORPHOLOGY YES
[2018-07-10 07:18] LABS: Anisocytosis 1+
[2018-07-10] MEDS: Azithromycin 250 MG Tablet PO (07:51)
[2018-07-10] MEDS: Aspirin E.C. 81 MG Tablet PO (07:51)
[2018-07-10] MEDS: Hydrocortisone 10 MG Tablet PO (07:51)
[2018-07-10] MEDS: Magnesium Oxide 400 MG Tablet PO (07:51)
[2018-07-10] MEDS: Iron Polysaccharide Complex 150 MG CAPSULE PO (07:51)
[2018-07-10] MEDS: Multivitamins,Therapeutic Tablet 1 TABLET PO (07:52)
[2018-07-10 13:03] VITALS: PULSE 100; RESP 20; O2SAT 99
--- NOTE | 2018-07-10 13:16 | CASEMGMT ---
Insurance Clinical information sent. Pending continued stay approval at this time. Auth#[id number] TIFFANY Gorman, PHYSICAL THERAPY TECHNICIAN
[2018-07-10] MEDS: oxyCODONE 5 MG Tablet 10 MG PO (13:32)
--- NOTE | 2018-07-10 14:09 | CASEMGMT ---
Insurance Continued stay approved with next update due on 07/14/18. Auth#[id number] TIFFANY Gorman, PROOF COINS INSPECTOR
[2018-07-10 15:43] VITALS: BP 108/71; PULSE 104; RESP 18; TEMP 35.6; O2SAT 96
--- NOTE | 2018-07-10 15:56 | NURSING ---
Addendum entered by Clemencia Garcia 07/10/18 16:48: HR 105 APICALLY. HR REMAINS IRREGULAR. R' DENIES CP/SOB. WILL MONITOR. Original Note: RATE QUOTING OPERATOR REPORTED TO THIS NURSE THAT R' HEART RATE WAS INCREASED WHEN OBTAINING VITAL SIGNS. THIS NURSE CHECKED HR, 115 APICALLY, IRREGULAR. BP 108/71, SPO2 96% ON 2L. R' HAS HX OF AFIB. NOTIFIED DR. BIRD. STATED TO GIVE 1800 DOSE COREG EARLY. GIVEN AT THIS TIME. WILL MONITOR. R' DENIES CP OR SOB.
[2018-07-10 16:00] VITALS: PULSE 115
[2018-07-10] MEDS: Hydrocortisone 10 MG Tablet 5 MG PO (16:36)
[2018-07-10 16:46] VITALS: PULSE 105
[2018-07-10 17:27] VITALS: PULSE 92
[2018-07-10] MEDS: Polyethylene Glycol 3350 17 GM PACKET PO (21:05)
[2018-07-10] MEDS: Pravastatin 40 MG Tablet PO (21:06)
[2018-07-10] MEDS: Amitriptyline 25 MG Tablet 50 MG PO (21:10)
[2018-07-10] MEDS: Gabapentin 100 MG Capsule PO (21:12)
[2018-07-11 04:55] VITALS: BP 102/70; PULSE 90; O2SAT 100
[2018-07-11] MEDS: oxyCODONE 5 MG Tablet 10 MG PO (04:56)
[2018-07-11] MEDS: Fluticasone/Salmeterol 232-14 Inhaler 1 PUFF IH ×2 (04:57→21:55)
[2018-07-11] MEDS: Fluticasone 0.05% 1 SPRAY NASAL.SRY 2 SPRAY NASAL (04:57)
[2018-07-11] MEDS: Lidocaine 5% Patch 1 PATCH TOPICAL (04:59)
[2018-07-11] MEDS: BRIMONIDINE 0.15% 5 ML Bottle 1 DRP EACH EYE ×2 (04:59→17:06)
[2018-07-11] MEDS: guaiFENesin 600 MG Tablet PO ×2 (05:01→17:09)
[2018-07-11] MEDS: Citalopram 20 MG Tablet PO (05:01)
[2018-07-11] MEDS: Levothyroxine 88 MCG Tablet PO (05:01)
[2018-07-11] MEDS: Pantoprazole Sodium 40 MG Tablet PO (05:01)
[2018-07-11] MEDS: Carvedilol 6.25 MG Tablet PO ×2 (05:01→17:09)
[2018-07-11] MEDS: Acetaminophen 500 MG Tablet 1000 MG PO ×3 (05:01→21:57)
[2018-07-11] MEDS: Cefdinir 300 MG Capsule PO ×2 (05:01→17:09)
[2018-07-11] MEDS: Benzonatate 100 MG Capsule PO ×3 (05:01→21:57)
[2018-07-11] MEDS: Furosemide 20 MG Tablet PO ×2 (05:01→17:09)
[2018-07-11] MEDS: Menthol/Lanolin/Calamine/Znox 113 GM Tube 1 APPLIC TOPICAL ×2 (05:03→21:54)
[2018-07-11] MEDS: Hydrocortisone 10 MG Tablet PO (08:07)
[2018-07-11] MEDS: Multivitamins,Therapeutic Tablet 1 TABLET PO (08:07)
[2018-07-11] MEDS: Iron Polysaccharide Complex 150 MG CAPSULE PO (08:08)
[2018-07-11] MEDS: Azithromycin 250 MG Tablet PO (08:08)
[2018-07-11] MEDS: Aspirin E.C. 81 MG Tablet PO (08:09)
[2018-07-11 08:17] VITALS: O2SAT 97
[2018-07-11 09:18] LABS: Anion Gap 5 (5-15); BUN 58 mg/dL (7-18); BUN/Creat Ratio 48.3 RATIO (10-20); Calcium,Total 8.6 mg/dL (8.5-10.1); Chloride 102 mmol/L (98-107); EST Glomerular Filtration Rate 46 mL/min (>60); Est Glom Filt Rate - Afr Amer 56 mL/min (>60); Estimated Creatinine Clearance 37.34 ml/min; Glucose 83 mg/dL (74-106); Potassium 4.4 mmol/L (3.5-5.1); Sodium Level 138 mmol/L (136-145)
[2018-07-11] MEDS: guaiFENesin Dm 10 ML UDC 5 ML PO (10:35)
[2018-07-11] MEDS: BENZOCAINE/MENTHOL 1 LOZENGE MUCOUS MEM (10:35)
[2018-07-11 16:00] VITALS: BP 119/75; PULSE 104; RESP 20; TEMP 36.7; O2SAT 98
[2018-07-11] MEDS: Hydrocortisone 10 MG Tablet 5 MG PO (17:09)
[2018-07-11] MEDS: Polyethylene Glycol 3350 17 GM PACKET PO (21:54)
[2018-07-11] MEDS: Pravastatin 40 MG Tablet PO (21:57)
[2018-07-12] MEDS: oxyCODONE 5 MG Tablet 10 MG PO ×2 (00:34→19:46)
[2018-07-12] MEDS: Menthol/Lanolin/Calamine/Znox 113 GM Tube 1 APPLIC TOPICAL ×2 (06:13→21:12)
[2018-07-12] MEDS: BRIMONIDINE 0.15% 5 ML Bottle 1 DRP EACH EYE ×2 (06:13→18:05)
[2018-07-12] MEDS: Carvedilol 6.25 MG Tablet PO ×2 (06:14→18:05)
[2018-07-12] MEDS: Citalopram 20 MG Tablet PO (06:14)
[2018-07-12] MEDS: Fluticasone 0.05% 1 SPRAY NASAL.SRY 2 SPRAY NASAL (06:14)
[2018-07-12] MEDS: Furosemide 20 MG Tablet PO ×2 (06:15→18:04)
[2018-07-12] MEDS: Lidocaine 5% Patch 1 PATCH TOPICAL (06:15)
[2018-07-12] MEDS: Fluticasone/Salmeterol 232-14 Inhaler 1 PUFF IH ×2 (06:15→21:11)
[2018-07-12] MEDS: guaiFENesin 600 MG Tablet PO ×2 (06:16→18:04)
[2018-07-12] MEDS: metOLazone 5 MG Tablet PO (06:16)
[2018-07-12] MEDS: Acetaminophen 500 MG Tablet 1000 MG PO ×3 (06:16→21:12)
[2018-07-12] MEDS: Cefdinir 300 MG Capsule PO ×2 (06:16→18:04)
[2018-07-12] MEDS: Pantoprazole Sodium 40 MG Tablet PO (06:16)
[2018-07-12] MEDS: Benzonatate 100 MG Capsule PO ×3 (06:16→21:12)
[2018-07-12] MEDS: Levothyroxine 88 MCG Tablet PO (06:16)
[2018-07-12 07:19] LABS: Absolute Neutrophil Count 5.4 X10^3/uL (2.0-7.7); Basophil# 0.03 X10^3/uL; Basophil% 0.4 % (0-1); Differential Indicated SCAN CRITERIA MET; Eosinophil# 0.55 X10^3/uL; Eosinophils% 6.4 % (0-5); Hemoglobin 11.6 g/dl (12.0-15.0); Lymphocyte % 18.7 % (19-41); Mean Corp Hgb Conc 31.4 g/gl (32-36); Mean Corpuscular Hgb 31.7 pg (27.0-32.0); Mean Corpuscular Volume 101.1 fL (81-99); Mean Platelet Vol. 8.5 fl (6.2-12.0); Monocyte# 0.95 X10^3/uL; Monocyte% 11.1 % (0-10); Neutrophil # 5.36 X10^3/uL (2.7-7.7); Neutrophil % 62.5 % (47-70); POSITIVE COUNT NO; POSITIVE DIFFERENTIAL NO; POSITIVE MORPHOLOGY YES; Platelet Count 291 K/mm3 (150-450); RBC Distribution Width CV 18.5 % (11.6-14.6); RBC Distribution Width SD 67.1 fl (35.1-43.9); Red Blood Count 3.66 M/mm3 (4.2-5.4); White Blood Count 8.6 K/mm3 (4.4-11.0)
[2018-07-12 07:38] LABS: Anion Gap 7 (5-15); BUN 52 mg/dL (7-18); Calcium,Total 8.4 mg/dL (8.5-10.1); Chloride 103 mmol/L (98-107); Creatinine, Serum 0.93 mg/dL (0.55-1.02); EST Glomerular Filtration Rate 62 mL/min (>60); Est Glom Filt Rate - Afr Amer 75 mL/min (>60); Estimated Creatinine Clearance 48.18 ml/min; Glucose 85 mg/dL (74-106); Potassium 4.2 mmol/L (3.5-5.1); Sodium Level 137 mmol/L (136-145)
[2018-07-12 07:52] LABS: Anisocytosis 2+; Hypochromasia 1+
[2018-07-12 08:08] VITALS: O2SAT 98
[2018-07-12] MEDS: Aspirin E.C. 81 MG Tablet PO (08:14)
[2018-07-12] MEDS: Iron Polysaccharide Complex 150 MG CAPSULE PO (08:15)
[2018-07-12] MEDS: Azithromycin 250 MG Tablet PO (08:15)
[2018-07-12] MEDS: Hydrocortisone 10 MG Tablet PO (08:15)
[2018-07-12] MEDS: Multivitamins,Therapeutic Tablet 1 TABLET PO (08:16)
[2018-07-12] MEDS: Magnesium Oxide 400 MG Tablet PO (08:16)
[2018-07-12 15:54] VITALS: BP 106/69; PULSE 101; RESP 18; TEMP 36.3; O2SAT 96
[2018-07-12] MEDS: Hydrocortisone 10 MG Tablet 5 MG PO (18:08)
[2018-07-12] MEDS: Pravastatin 40 MG Tablet PO (21:12)
[2018-07-12 21:15] VITALS: O2SAT 96
[2018-07-13] MEDS: BRIMONIDINE 0.15% 5 ML Bottle 1 DRP EACH EYE ×2 (05:29→17:18)
[2018-07-13] MEDS: Citalopram 20 MG Tablet PO (05:31)
[2018-07-13] MEDS: Carvedilol 6.25 MG Tablet PO ×2 (05:31→17:17)
[2018-07-13] MEDS: Menthol/Lanolin/Calamine/Znox 113 GM Tube 1 APPLIC TOPICAL ×2 (05:32→21:33)
[2018-07-13] MEDS: Fluticasone 0.05% 1 SPRAY NASAL.SRY 2 SPRAY NASAL (05:32)
[2018-07-13] MEDS: Lidocaine 5% Patch 1 PATCH TOPICAL (05:33)
[2018-07-13] MEDS: guaiFENesin 600 MG Tablet PO ×2 (05:33→17:17)
[2018-07-13] MEDS: Furosemide 20 MG Tablet PO ×2 (05:33→17:17)
[2018-07-13] MEDS: Levothyroxine 88 MCG Tablet PO (05:34)
[2018-07-13] MEDS: Pantoprazole Sodium 40 MG Tablet PO (05:34)
[2018-07-13] MEDS: Cefdinir 300 MG Capsule PO ×2 (05:34→17:18)
[2018-07-13] MEDS: Acetaminophen 500 MG Tablet 1000 MG PO ×3 (05:35→21:32)
[2018-07-13] MEDS: Benzonatate 100 MG Capsule PO ×3 (05:35→21:32)
[2018-07-13] MEDS: Fluticasone/Salmeterol 232-14 Inhaler 1 PUFF IH ×2 (05:41→21:31)
[2018-07-13 06:56] VITALS: O2SAT 92
[2018-07-13 08:07] VITALS: BP 94/63; PULSE 68; RESP 18; O2SAT 100
[2018-07-13] MEDS: Aspirin E.C. 81 MG Tablet PO (08:09)
[2018-07-13] MEDS: Hydrocortisone 10 MG Tablet PO (08:09)
[2018-07-13] MEDS: Multivitamins,Therapeutic Tablet 1 TABLET PO (08:09)
[2018-07-13] MEDS: Iron Polysaccharide Complex 150 MG CAPSULE PO (08:09)
--- NOTE | 2018-07-13 09:32 | NURSING ---
wound photo: right knee
--- NOTE | 2018-07-13 09:33 | NURSING ---
wound photo: right medial knee
--- NOTE | 2018-07-13 09:37 | PCM.PN.BLA ---
Progress Note Patient evaluated sitting in a chair. She appears improved since last week. Daughter, SHELLIE, would like a repeat fecal occult blood test to see if it comes back positive. If the test comes back positive, we will proceed with upper scope. If negative, daughter would like the procedure canceled. Order was placed for stool test and we will proceed according to test results. Code Visit Inpatient E&M: 73114 Subs Hosp L1
--- NOTE | 2018-07-13 09:40 | PN_ITS ---
Progress Note Patient evaluated sitting in a chair. She appears improved since last week. Daughter, SHELLIE, would like a repeat fecal occult blood test to see if it comes back positive. If the test comes back positive, we will proceed with upper scope. If negative, daughter would like the procedure canceled. Order was placed for stool test and we will proceed according to test results. Code Visit Inpatient E&M: 27299 Subs Hosp L1
[2018-07-13] MEDS: oxyCODONE 5 MG Tablet 10 MG PO ×2 (11:22→21:38)
--- NOTE | 2018-07-13 12:21 | NURSING ---
pt daughter called this AM requesting that stool be checked again before scope tomorrow to see if negative and if possible not do procedure. JOCELINE Castro here and ok with this. Also pt has not slept well in last couple nights. Daughter felt that pt forgets to ask for prn sleeping med and would like if order can be changed to QHS along with neurontin like she took it at home. Dr Lan notified, new orders received.
--- NOTE | 2018-07-13 15:16 | MDS.RN ---
Information for the mds was obtained from review of the clinical record, interview of resident, staff, and direct observation of resident's care.
[2018-07-13 15:58] VITALS: BP 121/70; PULSE 116; RESP 18; TEMP 36.8; O2SAT 96
[2018-07-13] MEDS: Hydrocortisone 10 MG Tablet 5 MG PO (17:16)
--- NOTE | 2018-07-13 18:42 | NURSING ---
Dr Glez called and ordered pt to have iv solucortef 50mg in AM before procedure & decrease po cortef to 2.5mg at dinner starting tomorrow.
[2018-07-13] MEDS: Amitriptyline 25 MG Tablet 50 MG PO (21:32)
[2018-07-13] MEDS: Gabapentin 100 MG Capsule PO (21:32)
[2018-07-13] MEDS: Pravastatin 40 MG Tablet PO (21:32)
[2018-07-14 06:00] VITALS: BP 141/65; PULSE 110; RESP 18; TEMP 36.6; O2SAT 97
[2018-07-14 06:17] LABS: Anion Gap 13 (5-15); BUN 46 mg/dL (7-18); BUN/Creat Ratio 43.4 RATIO (10-20); Calcium,Total 9.1 mg/dL (8.5-10.1); Chloride 103 mmol/L (98-107); Creatinine, Serum 1.06 mg/dL (0.55-1.02); EST Glomerular Filtration Rate 54 mL/min (>60); Est Glom Filt Rate - Afr Amer 65 mL/min (>60); Estimated Creatinine Clearance 42.27 ml/min; Glucose 76 mg/dL (74-106); Potassium 3.7 mmol/L (3.5-5.1); Sodium Level 141 mmol/L (136-145)
[2018-07-14] MEDS: Pantoprazole Sodium 40 MG Tablet PO (06:43)
[2018-07-14] MEDS: Carvedilol 6.25 MG Tablet PO ×2 (06:43→17:06)
[2018-07-14] MEDS: Levothyroxine 88 MCG Tablet PO (06:43)
[2018-07-14] MEDS: Hydrocortisone Sod Succinate 100 MG/2 ML Vial 50 MG IV (06:43)
[2018-07-14] MEDS: BRIMONIDINE 0.15% 5 ML Bottle 1 DRP EACH EYE ×2 (06:51→17:06)
[2018-07-14 07:03] LABS: Hematocrit 39.9 % (37-47); Hemoglobin 12.5 g/dl (12.0-15.0); Mean Corp Hgb Conc 31.3 g/gl (32-36); Mean Corpuscular Hgb 32.1 pg (27.0-32.0); Mean Corpuscular Volume 102.6 fL (81-99); Mean Platelet Vol. 8.8 fl (6.2-12.0); Platelet Count 277 K/mm3 (150-450); RBC Distribution Width CV 18.2 % (11.6-14.6); RBC Distribution Width SD 66.7 fl (35.1-43.9); Red Blood Count 3.89 M/mm3 (4.2-5.4); White Blood Count 12.9 K/mm3 (4.4-11.0)
[2018-07-14 07:05] LABS: Differential Indicated MANUAL DIFF; POSITIVE COUNT NO; POSITIVE DIFFERENTIAL NO; POSITIVE MORPHOLOGY YES
--- NOTE | 2018-07-14 07:30 | NURSING ---
pt off unit via bed to surgery for EGD this AM
[2018-07-14 07:32] VITALS: O2SAT 94
[2018-07-14 07:49] LABS: Basophil 1 % (0-1); Eosinophil 4 % (0-5); Lymphocyte 9 % (19-41); Macrocytosis 1+; Monocyte 7 % (0-10); Neutrophil-Segmented 79 % (47-70); Platelet Estimate ADEQUATE (ADEQ); Total Cells Counted 100 (MANUAL DIFF)
[2018-07-14 07:50] LABS: Absolute Lymphocyte Count 1.16 X10^3/ul (0.83-4.51); Absolute Neutrophil Count 10.2 X10^3/uL (2.0-7.7)
[2018-07-14 09:45] VITALS: BP 105/68; PULSE 85; RESP 20; TEMP 36.3; O2SAT 93
--- NOTE | 2018-07-14 09:51 | NURSING ---
pt returned from PACU via bed, alert oriented.
[2018-07-14] MEDS: Aspirin E.C. 81 MG Tablet PO (10:43)
[2018-07-14] MEDS: Hydrocortisone 10 MG Tablet PO (10:43)
[2018-07-14] MEDS: Acetaminophen 500 MG Tablet 1000 MG PO ×2 (10:44→20:44)
[2018-07-14] MEDS: Furosemide 20 MG Tablet PO ×2 (10:44→17:08)
[2018-07-14] MEDS: Benzonatate 100 MG Capsule PO ×3 (10:45→20:43)
[2018-07-14] MEDS: guaiFENesin 600 MG Tablet PO ×2 (10:45→17:08)
[2018-07-14] MEDS: Citalopram 20 MG Tablet PO (10:45)
[2018-07-14] MEDS: Iron Polysaccharide Complex 150 MG CAPSULE PO (10:46)
[2018-07-14] MEDS: Multivitamins,Therapeutic Tablet 1 TABLET PO (10:46)
[2018-07-14] MEDS: Magnesium Oxide 400 MG Tablet PO (10:46)
[2018-07-14] MEDS: Cefdinir 300 MG Capsule PO ×2 (10:47→17:08)
[2018-07-14] MEDS: Lidocaine 5% Patch 1 PATCH TOPICAL (10:47)
[2018-07-14] MEDS: Fluticasone 0.05% 1 SPRAY NASAL.SRY 2 SPRAY NASAL (10:48)
[2018-07-14] MEDS: Fluticasone/Salmeterol 232-14 Inhaler 1 PUFF IH ×2 (10:48→20:45)
--- NOTE | 2018-07-14 10:55 | NURSING ---
RR' A+OX3. AM MEDS GIVEN AT THIS TIME. CRACKERS AND FRESH ICE WATER PROVIDED. R' RATES PAIN 3/10 IN KNEE. ROUTINE TYLENOL GIVEN. WILL MONITOR.
[2018-07-14 11:04] VITALS: PULSE 104
[2018-07-14 15:20] VITALS: BP 101/62; PULSE 80; RESP 22; TEMP 35.6; O2SAT 95
--- NOTE | 2018-07-14 15:40 | CASEMGMT ---
Social Work Pt met with pt and spouse in room as pt has expressed interest in returning home. Pt would like to return home Friday or Friday. SW spoke with Lavinia Harrison RN about wound vac who states she will start getting approval for home would vac and pt will need seen in wound clinic on Friday and [facility] RN Fri and Fri for vac change. Pt would also like a Home health aid and is agreeable to home PT. Pt spouse is unable to drive at this time and will look for a friend to transport home which will determine date of d/c. Team notified of pt desire to return home on Friday or Friday and are agreeable. Plan: home with home health RN, PT, [employer] ARCHITECT and wound vac TIFFANY Davis
--- NOTE | 2018-07-14 15:49 | CASEMGMT ---
Insurance Clinical update faxed. Will await continued stay determination. Auth # [id number] TIFFANY Davis
[2018-07-14] MEDS: Hydrocortisone 10 MG Tablet 2.5 MG PO (17:07)
--- NOTE | 2018-07-14 17:32 | PCM.PN.BLA ---
Progress Note Discussed with Patient's daughter Valerie No active source of bleeding on EGD but findings suggest a healed lessor curvature ulcer Pt had a colonoscopy 2015 that was not remarkable Pt's hgb/hct is markedly improved 12.5/39.9 No evidence for ongoing blood loss She may follow up in August to discuss options/ cscope at that time Rosana
[2018-07-14] MEDS: Pravastatin 40 MG Tablet PO (20:43)
[2018-07-14] MEDS: Polyethylene Glycol 3350 17 GM PACKET PO (20:43)
[2018-07-14] MEDS: Gabapentin 100 MG Capsule PO (20:44)
[2018-07-14] MEDS: Amitriptyline 25 MG Tablet 50 MG PO (20:44)
[2018-07-14] MEDS: Menthol/Lanolin/Calamine/Znox 113 GM Tube 1 APPLIC TOPICAL (20:44)
[2018-07-14] MEDS: oxyCODONE 5 MG Tablet 10 MG PO (20:50)
--- NOTE | 2018-07-14 21:07 | DCINST_ITS ---
- Discharge Diagnoses Current Active Problems: Current Active and Chronic Problems (Last Reviewed 07/08/18 @ 12:27 by Gloria Man PA-C) Acute anemia (Acute) Fecal occult blood test positive (Acute) Melena (Acute) Debility (Acute) DVT (deep venous thrombosis) (Chronic) Depression (Chronic) You will use the following diet at home:: No restrictions, Regular Your food should be the consistency of: Regular Your liquids should be the consistency of: Regular/Thin Discharge Activity: Return to Normal Activity, May Shower, Use Walker Weight Bearing Status: Weight bearing as tolerated Call your doctor if you observe: Fever of 101 or Higher, Inability to urinate, Inability to have a bowel movement, Shortness of breath, Chest pain, Uncontrolled pain Allergies/Adverse Reactions: Allergies levofloxacin [Levofloxacin] Allergy (Verified 06/25/18 14:20) Hives warfarin [From Coumadin] Allergy (Verified 06/25/18 14:20) Other torsemide [From Demadex] Adverse Reaction (Intermediate, Verified 06/25/18 14:20) Rash Medications to take at Discharge Amitriptyline HCl 50 mg PO QHS PRN 07/22/15 Multivitamins,Therapeutic [Multivitamin] 1 tab PO DAILY 11/16/15 albuterol sulfate HFA 90 mcg/actuation aerosol inhaler 2 puff INHALATION Q6H 09/10/17 pravastatin 40 mg tablet 40 mg PO QHS tab 09/11/17 fluticasone 50 mcg/actuation nasal spray,suspension 2 spray INTRANASAL QDAY 01/20/18 magnesium 250 mg tablet 400 mg PO QODAY tab 06/17/18 potassium chloride ER 20 mEq tablet,extended release 20 meq PO .COMPLEX 06/17/18 Aspirin E.C. [Ecotrin] 81 mg PO DAILY 06/18/18 Citalopram Hydrobromide [Celexa] 20 mg PO DAILY 06/18/18 Brimonidine 0.15% [Alphagan P 0.15%] 1 drp EACH EYE BID 06/19/18 Lubiprostone [Amitiza] 8 mcg PO QHS PRN 06/21/18 Levothyroxine [Synthroid] 88 mcg PO DAILY 06/22/18 Metolazone [Zaroxolyn] 5 mg PO SUWE 06/22/18 Polyethylene Glycol 3350 [Miralax] 17 gm PO QHS 06/23/18 carvedilol 3.125 mg tablet 6.25 mg PO BID tab 06/25/18 furosemide 40 mg tablet 20 mg PO BID tab 06/25/18 oxycodone 10 mg tablet 10 mg PO Q4H PRN tab 06/25/18 Acetaminophen [Tylenol] 1,000 mg PO Q8 tablet 07/14/18 Benzonatate [Tessalon Perle] 100 mg PO TID #90 capsule 07/14/18 Carvedilol [Coreg (Beta Rolando)] 6.25 mg PO BID tablet 07/14/18 Fluticasone/Salmeterol [Fluticasone-Salmeterol 232-14] 1 puff IH 0600,1999 #1 inhaler 07/14/18 Furosemide [Lasix] 20 mg PO BID #60 tablet 07/14/18 Gabapentin [Neurontin] 100 mg PO BIDCM PRN #60 capsule 07/14/18 Guaifenesin Dm [Robitussin Dm] 5 ml PO Q6H PRN PRN udc 07/14/18 Guaifenesin [Mucinex] 600 mg PO BID tablet 07/14/18 Hydrocortisone [Cortef] 2.5 mg PO DINNER #30 tablet 07/14/18 Hydrocortisone [Cortef] 10 mg PO BREAKFAST #30 tablet 07/14/18 Iron Polysaccharide Complex [Ferrex 150] 150 mg PO DAILYCM #30 capsule 07/14/18 Lidocaine [Lidoderm Patch] 1 patch TOPICAL DAILY #30 patch 07/14/18 Menthol/Lanolin/Calamine/Znox [Calmoseptine Ointment] 1 applic TOPICAL 0600,2200 tube 07/14/18 Nutritional Supplement [Ever - ORANGE FLAVOR] 1 packet PO BIDCM #60 packet 07/14/18 Oxycodone [Oxyir] 10 mg PO Q4H PRN PRN 7 Days #84 tab 07/14/18 Pantoprazole Sodium [Protonix] 40 mg PO DAILY #30 tablet 07/14/18 Polyethylene Glycol 3350 [Miralax] 17 gm PO QHS #30 packet 07/14/18 The following prescriptions were given: Oxycodone [Oxyir] 10 mg PO Q4H PRN PRN 7 Days #84 tab PRN Reason: Severe Pain (6-10) Fluticasone/Salmeterol [Fluticasone-Salmeterol 232-14] 1 puff IH 06,1999 #1 inhaler Hydrocortisone [Cortef] 2.5 mg PO DINNER #30 tablet Hydrocortisone [Cortef] 10 mg PO BREAKFAST #30 tablet Iron Polysaccharide Complex [Ferrex 150] 150 mg PO DAILYCM #30 capsule Lidocaine [Lidoderm Patch] 1 patch TOPICAL DAILY #30 patch Pantoprazole Sodium [Protonix] 40 mg PO DAILY #30 tablet Polyethylene Glycol 3350 [Miralax] 17 gm PO QHS #30 packet Furosemide [Lasix] 20 mg PO BID #60 tablet Gabapentin [Neurontin] 100 mg PO BIDCM PRN #60 capsule PRN Reason: Pain Nutritional Supplement [Ever - ORANGE FLAVOR] 1 packet PO BIDCM #60 packet Benzonatate [Tessalon Perle] 100 mg PO TID #90 capsule Primary Care Physician: Minerva Martin MD [Primary Care Provider] - Please follow up with your Primary Care Physician in: 1 week. Test Results: Test results from this visit will be discussed in further detail at your follow- up appointment, if applicable. Please Follow Up With: Minerva Martin Please Follow Up With: Meka Glez When: 2 weeks. Please Follow Up With: Gurdeep Huang MD When: 2 weeks. Please Follow Up With: Sushil Blair NP When: 2 weeks. [facility] When: 07/20/2018. Proposed Discharge Date: 07/17/18
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
[2018-07-15] MEDS: Fluticasone/Salmeterol 232-14 Inhaler 1 PUFF IH ×2 (06:15→20:40)
[2018-07-15] MEDS: Fluticasone 0.05% 1 SPRAY NASAL.SRY 2 SPRAY NASAL (06:16)
[2018-07-15] MEDS: Citalopram 20 MG Tablet PO (06:17)
[2018-07-15] MEDS: guaiFENesin 600 MG Tablet PO ×2 (06:17→17:45)
[2018-07-15] MEDS: Acetaminophen 500 MG Tablet 1000 MG PO ×3 (06:17→20:41)
[2018-07-15] MEDS: Carvedilol 6.25 MG Tablet PO (06:17)
[2018-07-15] MEDS: Benzonatate 100 MG Capsule PO ×3 (06:17→20:41)
[2018-07-15] MEDS: Pantoprazole Sodium 40 MG Tablet PO (06:17)
[2018-07-15] MEDS: metOLazone 5 MG Tablet PO (06:17)
[2018-07-15] MEDS: Menthol/Lanolin/Calamine/Znox 113 GM Tube 1 APPLIC TOPICAL ×2 (06:17→20:44)
[2018-07-15] MEDS: Furosemide 20 MG Tablet PO ×2 (06:17→17:45)
[2018-07-15] MEDS: Levothyroxine 88 MCG Tablet PO (06:17)
[2018-07-15] MEDS: Lidocaine 5% Patch 1 PATCH TOPICAL (06:18)
[2018-07-15] MEDS: BRIMONIDINE 0.15% 5 ML Bottle 1 DRP EACH EYE ×2 (06:18→17:41)
[2018-07-15 06:27] VITALS: BP 132/75; PULSE 104; RESP 18; TEMP 36.4; O2SAT 99
[2018-07-15] MEDS: Multivitamins,Therapeutic Tablet 1 TABLET PO (08:20)
[2018-07-15] MEDS: Aspirin E.C. 81 MG Tablet PO (08:20)
[2018-07-15] MEDS: Iron Polysaccharide Complex 150 MG CAPSULE PO (08:20)
[2018-07-15] MEDS: Hydrocortisone 10 MG Tablet PO (08:20)
--- NOTE | 2018-07-15 12:04 | CASEMGMT ---
Social Work Received VM from pt dgt Dinorah stating that she does not feel pt should be d/c on Friday or Friday but would prefer pt wait till Dinorah can be present on Friday to transport pt home. MERCEDES met with pt in room. Pt has not spoke to dgt and states she continues to wish to go home on Friday or Friday. SW requested pt touch base with and dgt to make d/c plan. Pt agreeable to call dgt. When return to office phone call received from corina Copeland reiterating desire for pt to stay until Friday. SW informed dgt d/c date is choice of pt and spouse and requested Dinorah talk to pt about d/c date. Pt explained if pt chooses to stay until Friday and if Insurance does not deny continued stay (have not heard back from update on 07/14) then pt can d/c on Friday. Dinorah will call pt later today and family will make a decision. MERCEDES will continue to follow. TIFFANY Wynne
[2018-07-15 13:30] LABS: Pathologist Review Reviewed
[2018-07-15 15:37] VITALS: BP 131/63; PULSE 58; RESP 18; TEMP 35.9; O2SAT 94
--- NOTE | 2018-07-15 16:38 | CASEMGMT ---
Social Work SW met with pt and inquired about d/c plan. Pt confirms that he is aware the dgt Dinorah prefers d/c on Friday however, pt and spouse feel that they prefer d/c on Tuesday 07/17 and that pt and will be able to handle themselves at home. Pt wound vac will be changed on Friday and pt to d/c after that. Pt sister plans to transport pt home. Pt would prefer home health services be set up with [facility]. SW encourage pt spouse to speak with pt and with dgt Dinorah to settle family concerns about d/c date. Pt states he and pt will be making the decision. Phone call to Peace at [facility] and referral made for RN, MINE TECHNICIAN and PT. Peace states she believes they can take patient and will confirm and call back. Lavinia Harrison RN is setting up wound vac. SW will continue to follow for d/c planning. TIFFANY Davis
[2018-07-15] MEDS: Hydrocortisone 10 MG Tablet 2.5 MG PO (17:43)
[2018-07-15] MEDS: Carvedilol 3.125 MG TABLET 9.375 MG PO (17:44)
[2018-07-15] MEDS: Gabapentin 100 MG Capsule PO (20:42)
[2018-07-15] MEDS: Amitriptyline 25 MG Tablet 50 MG PO (20:42)
[2018-07-15] MEDS: Pravastatin 40 MG Tablet PO (20:42)
[2018-07-15] MEDS: Polyethylene Glycol 3350 17 GM PACKET PO (20:43)
[2018-07-16 05:53] LABS: Anion Gap 7 (5-15); BUN 54 mg/dL (7-18); BUN/Creat Ratio 49.1 RATIO (10-20); Calcium,Total 8.8 mg/dL (8.5-10.1); Chloride 105 mmol/L (98-107); EST Glomerular Filtration Rate 51 mL/min (>60); Est Glom Filt Rate - Afr Amer 62 mL/min (>60); Estimated Creatinine Clearance 40.73 ml/min; Glucose 73 mg/dL (74-106); Potassium 3.8 mmol/L (3.5-5.1); Sodium Level 142 mmol/L (136-145)
[2018-07-16 05:56] LABS: Absolute Lymphocyte Count 1.63 X10^3/ul (0.83-4.51); Absolute Neutrophil Count 6.8 X10^3/uL (2.0-7.7); Basophil# 0.06 X10^3/uL; Basophil% 0.6 % (0-1); Eosinophil# 0.43 X10^3/uL; Eosinophils% 4.3 % (0-5); Hematocrit 40.1 % (37-47); Hemoglobin 12.4 g/dl (12.0-15.0); Lymphocyte # 1.63 X10^3/ul (4.0); Lymphocyte % 16.4 % (19-41); Mean Corp Hgb Conc 30.9 g/gl (32-36); Mean Corpuscular Hgb 31.9 pg (27.0-32.0); Mean Corpuscular Volume 103.1 fL (81-99); Monocyte# 0.89 X10^3/uL; Neutrophil # 6.83 X10^3/uL (2.7-7.7); Neutrophil % 68.7 % (47-70); Platelet Count 282 K/mm3 (150-450); RBC Distribution Width CV 17.9 % (11.6-14.6); RBC Distribution Width SD 66.1 fl (35.1-43.9); Red Blood Count 3.89 M/mm3 (4.2-5.4); White Blood Count 9.9 K/mm3 (4.4-11.0)
[2018-07-16 05:57] LABS: Differential Indicated SCAN CRITERIA MET; POSITIVE COUNT NO; POSITIVE DIFFERENTIAL NO; POSITIVE MORPHOLOGY YES
[2018-07-16 06:35] LABS: Anisocytosis 1+; Differential Comment SCAN; Macrocytosis 1+; Red Cell Morphology N CHROM NORMAL (NORM C&C)
[2018-07-16] MEDS: Fluticasone 0.05% 1 SPRAY NASAL.SRY 2 SPRAY NASAL (06:41)
[2018-07-16] MEDS: Fluticasone/Salmeterol 232-14 Inhaler 1 PUFF IH ×2 (06:42→21:19)
[2018-07-16] MEDS: BRIMONIDINE 0.15% 5 ML Bottle 1 DRP EACH EYE ×2 (06:42→16:47)
[2018-07-16] MEDS: oxyCODONE 5 MG Tablet 10 MG PO ×2 (06:44→23:47)
[2018-07-16] MEDS: Acetaminophen 500 MG Tablet 1000 MG PO ×3 (06:44→21:19)
[2018-07-16] MEDS: Lidocaine 5% Patch 1 PATCH TOPICAL (06:44)
[2018-07-16] MEDS: guaiFENesin 600 MG Tablet PO ×2 (06:45→16:48)
[2018-07-16] MEDS: Benzonatate 100 MG Capsule PO ×3 (06:45→21:20)
[2018-07-16] MEDS: Citalopram 20 MG Tablet PO (06:45)
[2018-07-16] MEDS: Carvedilol 3.125 MG TABLET 9.375 MG PO ×2 (06:46→16:48)
[2018-07-16] MEDS: Furosemide 20 MG Tablet PO ×2 (06:47→16:51)
[2018-07-16] MEDS: Pantoprazole Sodium 40 MG Tablet PO (06:48)
[2018-07-16] MEDS: Levothyroxine 88 MCG Tablet PO (06:49)
[2018-07-16] MEDS: Menthol/Lanolin/Calamine/Znox 113 GM Tube 1 APPLIC TOPICAL ×2 (06:51→21:21)
[2018-07-16 06:55] VITALS: BP 122/69; PULSE 116
[2018-07-16 07:02] VITALS: O2SAT 94
[2018-07-16] MEDS: Multivitamins,Therapeutic Tablet 1 TABLET PO (08:32)
[2018-07-16] MEDS: Hydrocortisone 10 MG Tablet PO (08:32)
[2018-07-16] MEDS: Iron Polysaccharide Complex 150 MG CAPSULE PO (08:32)
[2018-07-16] MEDS: Magnesium Oxide 400 MG Tablet PO (08:32)
[2018-07-16] MEDS: Aspirin E.C. 81 MG Tablet PO (08:33)
--- NOTE | 2018-07-16 11:35 | CASEMGMT ---
Social Work Spoke with Peace at [facility] and she confirmed they are able to accept pt. Met with pt and she is comfortable with d/c home on Friday and states she has informed her dgt of this. Pt aware that [facility] PT, RN, BEV will be coming to her home. Pt has neede DME. No further SW needs. Plan: Home 07/[address] [facility] PT, RN, BEV and wound vac TIFFANY Davis
--- NOTE | 2018-07-16 14:22 | MDS.RN ---
Pain interview for valeria 07/17/18 completed.
[2018-07-16 15:41] VITALS: BP 111/67; PULSE 84; RESP 20; TEMP 35.7; O2SAT 97
[2018-07-16] MEDS: Hydrocortisone 10 MG Tablet 2.5 MG PO (16:49)
[2018-07-16] MEDS: Polyethylene Glycol 3350 17 GM PACKET PO (21:20)
[2018-07-16] MEDS: Amitriptyline 25 MG Tablet 50 MG PO (21:20)
[2018-07-16] MEDS: Pravastatin 40 MG Tablet PO (21:20)
[2018-07-16] MEDS: Gabapentin 100 MG Capsule PO (21:20)
[2018-07-17 06:00] VITALS: BP 110/73; PULSE 88
[2018-07-17] MEDS: Fluticasone 0.05% 1 SPRAY NASAL.SRY 2 SPRAY NASAL (06:25)
[2018-07-17] MEDS: Fluticasone/Salmeterol 232-14 Inhaler 1 PUFF IH (06:25)
[2018-07-17] MEDS: BRIMONIDINE 0.15% 5 ML Bottle 1 DRP EACH EYE (06:25)
[2018-07-17] MEDS: Lidocaine 5% Patch 1 PATCH TOPICAL (06:26)
[2018-07-17] MEDS: Acetaminophen 500 MG Tablet 1000 MG PO (06:26)
[2018-07-17] MEDS: Benzonatate 100 MG Capsule PO (06:27)
[2018-07-17] MEDS: Carvedilol 3.125 MG TABLET 9.375 MG PO (06:27)
[2018-07-17] MEDS: Furosemide 20 MG Tablet PO (06:27)
[2018-07-17] MEDS: Citalopram 20 MG Tablet PO (06:27)
[2018-07-17] MEDS: guaiFENesin 600 MG Tablet PO (06:27)
[2018-07-17] MEDS: Pantoprazole Sodium 40 MG Tablet PO (06:28)
[2018-07-17] MEDS: Levothyroxine 88 MCG Tablet PO (06:28)
[2018-07-17] MEDS: Menthol/Lanolin/Calamine/Znox 113 GM Tube 1 APPLIC TOPICAL (06:29)
[2018-07-17 06:30] VITALS: O2SAT 99
[2018-07-17 06:35] VITALS: O2SAT 99
[2018-07-17] MEDS: Aspirin E.C. 81 MG Tablet PO (08:40)
[2018-07-17] MEDS: Iron Polysaccharide Complex 150 MG CAPSULE PO (08:40)
[2018-07-17] MEDS: Multivitamins,Therapeutic Tablet 1 TABLET PO (08:40)
--- NOTE | 2018-07-17 09:59 | NURSING ---
wound photo: right anterior knee
--- NOTE | 2018-07-17 09:59 | NURSING ---
wound photo: right medial knee
[2018-07-17] MEDS: Hydrocortisone 10 MG Tablet PO (10:15)
[2018-07-17 10:54] VITALS: BP 100/57; PULSE 86; RESP 18; TEMP 36.2; O2SAT 98
--- NOTE | 2018-07-17 12:46 | CASEMGMT ---
Insurance Insurance notified of d/c on this date with [facility]. Auth# [id number] TIFFANY Davis
--- NOTE | 2018-07-17 13:43 | CASEMGMT ---
BIMS and PHQ9 interviews completed on this date for MDS assessment. BIMS score 1415, PHQ 9 09/03 TIFFANY Davis
--- NOTE | 2018-07-20 05:06 | NURSING ---
Pt's spouse placed call to TCU at 0400 with concerns about wound vac. Spouse reports wound vac is saying low battery even while plugged in all weekend and canister is now full. Spouse provided with [facility] wound center and [facility] telephone number. electronic coils supervisor notified. Research Lab Assistant placed call to TCU to verify pt status. train caller home health nurse notified by lead vulcanizing operator.
== END 2018-07-17 12:40 | disposition home health service (06) | DRG 560 ==
PROVIDERS: Admitting Provider Family Medicine Geriatric Medicine; Family Provider Internal Medicine; PCP Internal Medicine; Referring Provider Family Medicine Geriatric Medicine; Visit Provider Family Medicine Geriatric Medicine
DX: S22.42XD Multiple fractures of ribs, left side, subsequent encounter for fracture with routine healing (principal); I50.22 Chronic systolic (congestive) heart failure; E27.49 Other adrenocortical insufficiency; E27.40 Unspecified adrenocortical insufficiency; K92.1 Melena; V49.9XXD Car occupant (driver) (passenger) injured in unspecified traffic accident, subsequent encounter; I25.10 Atherosclerotic heart disease of native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 without angina pectoris; I48.0 Paroxysmal atrial fibrillation; S80.01XD Contusion of right knee, subsequent encounter; E78.5 Hyperlipidemia, unspecified; I27.20 Pulmonary hypertension, unspecified; F32.9 Major depressive disorder, single episode, unspecified; R73.03 Prediabetes; G47.33 Obstructive sleep apnea (adult) (pediatric); E03.9 Hypothyroidism, unspecified; D50.9 Iron deficiency anemia, unspecified; E87.6 Hypokalemia; Z86.718 Personal history of other venous thrombosis and embolism; Z95.810 Presence of automatic (implantable) cardiac defibrillator; Z96.651 Presence of right artificial knee joint; Z95.3 Presence of xenogenic heart valve; H40.9 Unspecified glaucoma; D63.8 Anemia in other chronic diseases classified elsewhere; J20.6 Acute bronchitis due to rhinovirus; K21.9 Gastro-esophageal reflux disease without esophagitis; S80.02XD Contusion of left knee, subsequent encounter; F41.9 Anxiety disorder, unspecified
CPT/HCPCS: 36415; 71046; 80048; 81001; 82274; 85014; 85018; 85025; 85610; 85730; 86850; 86900; 86920; 86922; 87040; 87086; 87633; 93005; 94640; 97110; 97116; 97163; 97166; 97530; 97535; 97802

== ENCOUNTER → 2018-06-29 12:57 | Outpatient (CLI) | payer OTHER, MEDICARE, SELFPAY ==
[2018-06-25 14:20] VITALS: BMI 24.7
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
== END ==
PROVIDERS: Family Provider Internal Medicine; PCP Internal Medicine; Referring Provider Internal Medicine Cardiovascular Disease; Visit Provider Internal Medicine Cardiovascular Disease
DX: I47.2 Ventricular tachycardia (principal); I42.9 Cardiomyopathy, unspecified; Z95.3 Presence of xenogenic heart valve
CPT/HCPCS: 93306

== ENCOUNTER → 2018-06-30 13:25 | Outpatient (CLI) | payer MEDICARE, OTHER, SELFPAY ==
[2018-06-25 14:20] VITALS: BMI 24.7
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
--- OUTSIDE RECORDS SUMMARY | 2018-09-06 13:30 | XMS RPT_ITS | Continuity of Care Document ---
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 Rickie Polanco MD S MEERA: CT BRAIN WITHOUT CONTRAST REASON FOR EXAM: [...] CC: Minerva Vergara MD; Rickie Polanco MD Greens Tier: Signed 18-Jun-2018 Chest WITH Contrast Result: Comments: See Note; NOTES: [facility] Imaging Services [address] [place] [address] Chest WITH Contrast MR#: [id number] Acct: [id number] Name: IRIS ARRIAGA Rep #: [id number] : 1940 F 78 From: Guero Chan MD PCP: Minerva Vergara MD Status: REG ER Study: Chest WITH Contrast Date of Exam: 06/18/18 Exam# [id number] Ordering Dr: Rickie Polanco MD STUDY: CT [...] C: Minerva Vergara MD; Rickie Polanco MD Greens Tier: Signed 18-Jun-2018 Chest WITH Contrast Result: Comments: See Note; NOTES: [facility] Imaging Services [address] [place] [address] Chest WITH Contrast MR#: [id number] Acct: [id number] Name: IRIS ARRIAGA Rep #: [id number] : 1940 F 78 From: Guero Chan MD PCP: Minerva Vergara MD Status: REG ER Study: Chest WITH Contrast Date of Exam: 06/18/18 Exam# [id number] Ordering Dr: Rickie Polanco MD ADDENDUM by [...] abnormality. Cardiomegaly noted. See above. Electronically Signed: Geuro Chan MD at 13:12 EST , Service support [phone], CC: Minerva Vergara MD; Rickie Polanco MD Greens Tier: Signed 18-Jun-2018 Knee 1 or 2 Views Result: Comments: See Note; NOTES: [facility] Imaging Services [address] [place] [address] Knee 1 or 2 Views MR#: [id number] Acct: [id number] Name: IRIS ARRIAGA Rep #: [id number] : 1940 F 78 From: Addy Shen MD PCP: Minerva Vergara MD Status: REG ER Study: Knee 1 or 2 Views Date of Exam: 06/18/18 Exam# [id number] Ordering Dr: Rickie Poalnco MD STUDY: X-RAY - RIGHT KN EE [...] CC: Minerva Vergara MD; Rickie Polanco MD Greens Tier: Signed 18-Jun-2018 Spine Cervical without Contras Result: Comments: See Note; NOTES: [facility] Imaging Services [address] [place] [address] Spine Cervical without Contras MR#: [id number] Acct: [id number] Name: IRIS ARRIAGA Rep #: [id number] : 1940 F 78 From: Indra Lay MD PCP: Minerva Vergara MD Status: REG ER Study: Spine Cervical without Contras Date of Exam: 06/18/18 Exam# [id number] Ordering Dr: Rickie Polanco STUDY: CT CERVICAL [...] CC: Minerva Vergara MD; Rickie Polanco MD Greens Tier: Signed 17-Jun-2018 Cardiology Visit Report Result: Comments: See Note; NOTES: [facility] [address] [place] [address] OFFICE VISIT Date of Service: 06/17/18 MR#: [id number] Acct: [id number] Name: IRIS ARRIAGA Rep #: [id number] : 1940 Provider: Gurdeep Huang MD Age/Sex: 78/F [place] [facility] Status: Signed HPI HPI Details: [...] PO .C OMPLEX 06/17/18 [History Confirmed 06/17/18] [facility] Medical History Paroxysmal ventricular tachycardia (Acute) Paroxysmal atrial tachycardia (Acute) Par oxysmal atrial fibrillation (Acute) Chronic systolic (congestive) heart failure (Chronic) Thrombophlebitis of left internal iliac vein (Acute) Bilateral carpal tunnel syndrome (Resolved) Menopausal oste oporosis (Chronic) Myalgia (Chronic) Renal insufficiency (Acute) Balance disorder (Chronic) Gait abnormality (Chronic) UTI symptoms (Acute) Memory impairment (Chronic) Prediabetes (Chronic) Stroke (Teleradiologist gemma) Nonrheumatic mitral (valve) prolapse (Resolved) Hyperlipemia (Chronic) Heart palpitations (Acute) Long-term use of high-risk medication (Chronic) 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 [facility] catheterization: 05/29/2011 CONCLUSION 1. Tlfv-zv-jjgmitat global left ventricular systolic dysfunction. Ejection fraction 40 percent. 2. Left main with 10 percent eccentric ostial stenosis/eccent smiley takeoff. 3. Left anterior descending with 10-20 percent smooth tubular proximal stenosis. 4. Circumflex coronary angiographically normal. 5. Right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 angiographically normal. Pacemaker /ICD: Media Sales Consultant: Medtronic Name: Protecta VR Model #: [id number] Serial #: [id number] Date Implanted: 04/29/2013 Device Characteristics Device: Single [...] lipid labs were checked on 06/12/2018 at [facility] in [place], [place]. According to the report received today [...] MD 17-Jun-2018 12 Lead EKG performed by [facility] Result: Comments: See Note; NOTES: [facility] [address] [place] [address] 12 Lead EKG performed by [facility] 06/17/18 1359 MR#: [id number] Acct: [id number] Name: IRIS VALENCIA Rep #: [id number] : 1940 78 From: Gurdeep Huang MD Attending Dr: Gurdeep Huang MD Status: DEP AMB Ordering Dr: Gurdeep Huang MD Date: 06/17/18 Location: [facility] Sex: F C Admitted: BMS/12 Lead EKG performed by [facility] ECG Report Interpretation Sinus Rhythm -First degree A-V block - multiform ectopic ventricular beats Poor R wave progress ionVoltage criteria for Left ventricular hypertrophy Nonspecific ST depression ABNORMAL Electronically signed on 06/17/2018 at 17:25 by Gurdeep Huang Software Version 8610 06/17/18 1726 Da te Gurdeep Huang MD CC: Minerva Vergara MD Date Dictated: 06/17/181358 Date Transcribed: 06/17/18 135 Greens Tier: PM Signed 01-May-2018 Pacemaker Check Result: Comments: See Note; NOTES: [facility] [address] [place] [address] Pacemaker Check Date of Service: 05/01/18 1428 MR#: [id number] Acct: [id number] Name: IRIS ARRIAGA Caitlin Rep #: [id number] : 1940 From: Kim Pickard Age/Sex: 78/F Location: [facility] Status: Signed Billing Codes ICD Device Billing: ICD Dev Prog Eval, Single 05/01/18 1430 <Elect ronically signed by Kim Pickard > Date Kim Pickard 05/01/18 1634<Electronically signed by Gurdeep Huang MD> Cosigner Sign ature: Date (if applicable) Gurdeep Haung MD CC: 18-Mar-2018 Pulmonary Visit Report Result: Comments: See Note; NOTES: [facility] [address] [place] [address] OFFICE VISIT Date of Service: 03/18/18 MR#: [id number] Acct: [id number] Name: TANISHAIRIS VERONICA CH Rep #: [id number] : 1940 Provider: Glenna Anderson Age/Sex: 78/F Location: [facility] Status: Signed Assessment AND Plan Problems 1. 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 Interrogation shows no VT/VF episodes [...] in office Interview Reason: routine follow up Media Sales Consultant: [employer]tronic Name: Protecta VR Model: [id number] Serial #: [id number] Implant Date: 04/29/13 Year(s): 4 Implant Physician: Dr. Jose Murphy Patient Characteristics Atrial Indication: Paroxysmal atrial fibrillation Ventricular Indication: Nonsustained VT Patient Substrate: Nonischemic cardiomyopathy By: Echo Implant DFT: 18J Underlying rhythm: Sinus rhythm Pacemaker Dependent: No Device Characteristics Device: Single Chamber Type: Implantable defibrillator Remote Follow-Up: No Device Physical Exam Yes Incision well healed Leads Lead #1 Media Sales Consultant Lead 1: Medtronic Model Lead 1: 5076 Serial# Lead 1: [id number] Date Implanted Lead 1: 09/03/04 Position Lead 1: RV Lead #2 Media Sales Consultant Lead 2: Medtronic Model Lead 2: 6943 Serial# Lead 2: [id number] Date Implanted Lead 2: 11/18/00 Position Lead [...] R00.2 6. Atherosclerot ic heart disease of iroquois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 with angina pectoris I25.119 7. Syncope R55 02/01/18 1335 <Electronically signed by Kim Pickard > Date Kim Pickard 02/02/18 0800<Electronically signed by Gurdeep Huang MD> Cosigner Signature: Date (if applicable) Gurdeep Huang MD CC: 27-Oct-2017 Venous Duplex Lower Extremity Result: Comments: See Note; NOTES: [facility] Cardiovascular Services [address] [place] [address] Venous Duplex US, Unilateral 10/27/17 0952 MR#: [id number] Acct: [id number] Name: IRIS HOU Rep #: [id number] : 1940 77 From: Alejandro Armendariz MD [...] Date Dictated: 10/27/17 0952 Date Transcribed: 10/27/171613 Greens Tier: Signed 15-Oct-2017 Pulmonary Visit Report Result: Comments: See Note; NOTES: [facility] [address] [place] [address] OFFICE VISIT Date of Service: 10/15/17 MR#: [id number] Acct: [id number] Name: IRIS STRINGER CH Rep #: [id number] : 1940 Provider: Glenna Anderson Age/Sex: 77/F Location: [facility] Status: Signed Assessment AND Plan 1. URMILA [...] Plan Detail Follow Up 3 Months (DMB) [facility] Hospital FU: Chief Complaint: Shortness of breath on exertion [facility] Comments Details: This is a 77 year [...] body aches. She has not utilized any krkf-lky-clufozf medications for her shortness of breath. 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 [id number] Electronically Signed: Ed Fink MD at 11:10 EST Tel [phone], Service support , CC: Minerva Vergara MD Greens Tier: Signed 06-Oct-2017 Office Visit Report Result: Comments: See Note; NOTES: [address] [place] [address] OFFICE VISIT Date of Service: 09/25/17 MR#: [id number] Acct: [id number] Patient: IRIS ARRIAGA Rep #: [id number] : 1940 Provider: Kim Pickard Age/Sex: 77/F Location: [facility] Status: Signed Comments Summary Comments: Single Chamber ICD Evaluation: Interrogation shows no VT/VF episodes since 06/17/17. Left pectoral pocket/incision w/o s/s of infection or erosion. Pt offers no cardiac complaints. Presenting rhythm shows NSR @ 92 bpm. TRAFFIC CONTROL FLAGGER=<0.1%. Lead impedance, sensing and pace/sense thres hold remain stable. No parameter changes made. Counters cleared. Next f/u appt scheduled for in 3 mos. Device Device Date Interviewed: 09/25/17 Follow-up Location: in office Interview Reason: routine follow up Media Sales Consultant: [employer] Name: Protecta VR Model: [id number] Serial #: [id number] Implant Date: 04/29/13 Year(s): 4 Implant Physician: [...] Incision well healed Leads Le ad #1 Media Sales Consultant Lead 1: Medtronic Model Lead 1: 5076 Serial# Lead 1: [id number] Date Implanted Lead 1: 09/03/04 Position Lead 1: RV Additional Details: pace/sense lead Lead #2 Media Sales Consultant Lead 2: ClassLink Model Lead 2: 6943 Serial# Lead 2: [id number] Date Implanted Lead 2: 11/18/00 Position Lead [...] Visit Report Result: Comments: See Note; NOTES: [facility] [address] [place] [address] OFFICE VISIT Date of Service: 09/11/17 MR#: [id number] Acct: [id number] Name: IRIS ARRIAGA Rep #: [id number] : 1940 Provider: Gurdeep Huang MD Age/Sex: 77/F [place] [facility] [place]: Signed HPI 6 M FU: Details: [...] that she was evaluated for such at [facility]. 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 She is due to see her door closer at [employer] in October of this year. [...] artery disease) I25.10 Coronary Disease-Associated Artery/Lesion type: iroquois artery Long-term use of high-risk medication Z79.899 [...] artery disease) I25.10 Coronary Disease-Associated Artery/Lesion type: iroquois artery Long-term use of high-risk medication Z79.899 09/11/17 1716 <Electronically signed by Gurdeep Huang MD> Date Gurdeep Huang MD Cosigner Signature: Date ___ (if applicable) CC: Minerva Vergara MD 28-Jul-2017 Venous Duplex Lower Extremity Result: Comments: See Note; NOTES: [facility] Cardiovascular Services [address] [place] [address] Venous Duplex US, Unilateral 07/28/17 0942 MR#: [id number] Acct: [id number] Name: IRIS HOU Rep #: [id number] : 1940 77 From: Alejandro Armendariz MD [...] Minerva Vergara Performed By: Sheridan Acuna RVT 07/28/17 1752 Date Alejandor Armendariz MD CC: Minerva Vergara MD Date Dictated: 07/28/17 0942 Date Transcribed: 07/28/171751 Greens Tier: Signed 28-Jul-2017 CT ANGIO ABD AND PEL W/O AND W/DYE Result: Comments: See Note; NOTES: [facility] Imaging Services [address] [place] [address] CT ANGIO ABD AND PEL W/O AND W/DYE MR#: [id number] Acct: [id number] Name: IRIS ARRIAGA Rep #: [id number] : 1940 F 77 From: Apolinar Ansari DO PCP: Minerva Vergara MD Status: REG CLI Study: CT ANGIO ABD AND PEL W/O AND W/DYE Date of Exam: 07/28/17 Exam# [id number] Ordering Dr: Minerva Child i, MD STUDY: [...] Service support , CC: Minerva Vergara MD Greens Tier: Signed 19-Feb-2017 6 Minute Walk Test Result: Comments: See Note; NOTES: [facility] Pulmonary Services/Neurology [address] [place] [address] MR#: [id number] Acct: [id number] Name: IRIS ARRIAGA Rep #: [id number] : 1940 77 From: Jeremie Schultz MD Referring Dr: Bruno Barcenas D.O. Date: Ordering Dr: Sex: F C Location: PSN PSN 6 Minute Walk Test - 6 Minute Walk Test 6 Minute Walk Test: 6 Minute Walk Test PS N:6-Minute Walk Test Start: 02/19/17 12:50 Freq: Status: Active Document 02/19/17 12:50 FR (Rec: 02/19/17 12:53 FR [id number]) 6 Minute Walk Test Date Performed 02/19/17 [...] patient will need to be followed closely. 02/19/171557 <Electronically signed by Jeremie Schultz MD> Date Bruc e Juan Alberto TIRADO CC: Date Dictated: 02/19/171552 Date Transcribed: 02/19/171552 Greens Tier: Jeremie Schultz Signed 03-Jan-2017 Abdomen/Pelvis WITH Contrast Result: Comments: See Note; NOTES: [facility] Imaging Services [address] [place] [address] Verdana 4d Abdomen/Pelvis WITH Contrast MR#: [id number] Acct: [id number] Name: JARON ARRIAGA Rep #: [id number] : 1940 F 76 From: Ed Fink MD PCP: Minerva Vergara MD Status: REG CLI Study: Abdomen/Pelvis WITH Contrast Date of Exam: 01/03/17 Exam# [id number] Ordering Dr: Minerva Bartlett MD STUDY: CT [...] Ed Fink MD at 13:03 EDT Tel [phone], Service support , CC: Minerva Vergara MD Greens Tier: Signed 01-Jan-2017 Pulmonary Function Report Comp Result: Comments: See Note; NOTES: [facility] Pulmonary Services/Neurology [address] [place] [address] Pulmonary Function Test (Comp) MR#: [id number] Acct: [id number] Name: CATHLEEN ARRIAGA Rep #: [id number] : 1940 76 From: Bruno Barcenas DO Referring Dr: Minerva Vergara MD Status: REG CLI Ordering Dr: Minerva Vergara MD Date: 12/31/16 Location: [facility] Sex: F C DATE OF [...] C: Referring Provider . T: NTS JOB: [id number] 01/01/17 1057 <Electronically signed by Christian Barcenas DO> Date Bruno Barcenas DO CC: Minerva Vergara MD; Bruno Barcenas D.O. Date Dictated: 12/31/161600 Date Transcribed: 12/31/161600 Greens Tier: Signed 26-Dec-2016 Echocardiogram Complete Result: Comments: See Note; NOTES: [facility] Cardiovascular Services [address] [place] [address] Echo Complete 12/25/16 1357 MR#: [id number] Acct: [id number] Name: IRIS ARRIAGA Rep #: [id number] : 1940 76 From: Gurdeep Huang MD Attending Dr: Peace Miller Status: REG CLI Ordering Dr: Peace Miller Date: 12/25/16 Location: [facility] Sex: F C Ad[facility] For Study: ASHD Procedure This was a [...] ernesto: Minerva Vergara M.D. Performed By: Prema Fiore, [facility] 12/26/16 09 Date Gurdeep Huang MD CC: Minerva Vergara MD; Peace Miller Date Dictated: 12/25/16 1357 Date Transcribed: 12/26/16906 Greens Tier: Signed 04-Dec-2016 Abd Inc Decub and/or Erect Result: Comments: See Note; NOTES: [facility] Imaging Services [address] [place] [address] Verdana 4d Abd Inc Decub and/or Erect MR#: [id number] Acct: [id number] Name: ARI ARRIAGA Rep #: [id number] : 1940 F 76 From: Mele Brown MD PCP: Minerva Vergara MD Status: REG CLI Study: Abd Inc Decub and/or Erect Date of Exam: 12/04/16 Exam# [id number] Ordering Dr: Anita Quiñonez DO STUDY: X-RAY [...] CC: Minerva Vergara MD; Ida Quiñonez DO Greens Tier: Signed 04-Dec-2016 CTA Chest W/WO Contrast Result: Comments: See Note; NOTES: [facility] Imaging Services [address] [place] [address] Verdana 4d CTA Chest W/WO Contrast MR#: [id number] Acct: [id number] Name: IRIS ARRIAGA Rep #: [id number] : 1940 F 76 From: Ed Fink MD PCP: Minerva Vergara MD Status: REG CLI Study: CTA Chest W/WO Contrast Date of Exam: 12/04/16 Exam# [id number] Ordering Dr: Ida Quiñonez DO STUDY: CTA [...] Megan Fink MD at 15:43 EDT Tel [phone], Service support , CC: Minerva Vergara MD; Ida Quiñonez DO Greens Tier: Signed 03-Dec-2016 Venous Duplex Lower Extremity Result: Comments: See Note; NOTES: [facility] Cardiovascular Services [address] [place] [address] Venous Duplex US - David Extrem 12/03/16 1553 MR#: [id number] Acct: [id number] Name: IRIS ARRIAGA Rep #: [id number] : 1940 76 From: Alejandro Armendariz MD [...] Performed By: Rm Ferro RVT 12/03/161849 Date Alejanrdo Armendariz MD CC: Minerva Vergara MD; Alejandro Armendariz MD Date Dictated: 12/03/16 1553 Da te Transcribed: 12/03/161849 Greens Tier: Signed 02-Dec-2016 Abdomen without IV Contrast Result: Comments: See Note; NOTES: [facility] Imaging Services [address] [place] [address] Verdana 4d Abdomen without IV Contrast MR#: [id number] Acct: [id number] Name: CAMILA ARRIAGA Rep #: [id number] : 1940 F 76 From: Moses Chase MD PCP: Minerva Vergara MD Status: REG CLI Study: Abdomen without IV Contrast Date of Exam: 12/02/16 Exam# [id number] Ordering Dr: Minerva Broussard MD STUDY: CT [...] diverticulitis. The abdominal wall is intact. A Pres[place] umbrella filter is in place but 4 [...] left.. CT/Abdomen without IV Contrast IMPRESSION: A Pres[place] umbrella filter in place with at least [...] Service support , CC: Minerva Vergara MD Greens Tier: Signed 31-Oct-2016 Abd Inc Decub and/or Erect Result: Comments: See Note; NOTES: [facility] Imaging Services [address] [place] [address] Verdana 4d Abd Inc Decub and/or Erect MR#: [id number] Acct: [id number] Name: ARI ARRIAGA Rep #: [id number] : 1940 F 76 From: Ed Fink MD PCP: Minerva Vergara MD Status: REG CLI Study: Abd Inc Decub and/or Erect Date of Exam: 10/31/16 Exam# [id number] Ordering Dr: Minerva Vergara MD STUDY: X-RAY [...] Ed Fink MD at 10:26 EDT Tel [phone], Service support [phone], CC: Minerva Vergara MD Greens Tier: Signed 31-Oct-2016 Chest PA and Lateral Result: Comments: See Note; NOTES: [facility] Imaging Services [address] [place] [address] Sharondana 4d Chest PA and Lateral MR#: [id number] Acct: [id number] Name: IRIS ARRIAGA p #: [id number] : 1940 F 76 From: Ed Fink MD PCP: Minerva Vergara MD Status: REG CLI Study: Chest PA and Lateral Date of Exam: 10/31/16 Exam# [id number] Ordering Dr: Minerva Vergara MD S TUDY: [...] Ed Fink MD at 10:27 EDT Tel [phone], Service support [phone], CC: Minerva Vergraa MD Greens Tier: Signed 26-Sep-2016 Dexa Bone Density Study (HP) Result: Comments: See Note; NOTES: [facility] Imaging Services [address] [place] [address] Verdana 4d Dexa Bone Density Study (HP) MR#: [id number] Acct: [id number] Name: JARON ARRIAGA Rep #: [id number] : 1940 F 76 From: Ed Fink MD PCP: Minerva Veragra MD Status: REG CLI Study: Dexa Bone Density Study (HP) Date of Exam: 09/26/16 Exam# [id number] Ordering Dr: Minerva Bartlett MD STUDY: DUAL [...] Fink MD at 15:0 0 EST Tel [phone], Service support [phone], CC: Minerva Vergara MD Greens Tier: Signed 26-Sep-2016 SCREENING MAMM (CAD), BILAT Result: Comments: See Note; NOTES: [facility] Imaging Services [address] [place] [address] Verdana 4d SCREENING MAMM (CAD), BILAT MR#: [id number] Acct: [id number] Name: CAMILA ARRIAGA Rep #: [id number] : 1940 F 76 From: Ed Fink MD PCP: Minerva Vergara MD Status: [facility] Study: SCREENING MAMM (CAD), BILAT Date of Exam: 09/26/16 Exam# [id number] Ordering Dr: Minerva Child i, MD MAMMOGRAPHY [...] delay biopsy of a clinically suspicious abnormality. [id number] Electronically Signed: Ed Fink MD at 7:48 EST Tel [phone], Service support [phone], CC: Minerva Vergara MD Greens Tier: Signed 09-Feb-2016 Operative Report Result: Comments: See Note; NOTES: [facility] Medical Records Department [address] [place] [address] Operative Report MR#: [id number] Acct: [id number] Name: ETHELCAMILA HillJose Manuel Tucker Rep #: [id number] : 1940 76 From: Clifford Gifford MD [...] without difficulty to the cecum, identified by snoqualmie's foot appearance, ileocecal valve and appendiceal orifice. [...] patient. Kamari Gifford MD T: NTS JOB: [id number] 02/09/16 0706 <Electronically signed by Clifford Gifford MD> Date Clifford Gifford MD Cosign er Signature (If Indicated): Date CC: Clifford Gifford; Minerva Vergara MD Date Dictated: 01/30/16832 Date Transcribed: 01/30/16832 Greens Tier: Signed 15-Nov-2015 Gallbladder Result: Comments: See Note; NOTES: [facility] Imaging Services [address] [place] [address] Verdana 4d Gallbladder MR#: [id number] Acct: [id number] Name: IRIS ARRIAGA Rep #: [id number] : 1940 F 75 From: Sofia Storey MD PCP: Minerva Vergara MD Status: REG ER Study: Gallbladder Date of Exam: 11/15/15 Exam# [id number] Ordering Dr: Jalil Nogueira MD STUDY: ULTRASOUND [...] MD at 21:57 EDT , Service support [phone], F ax [phone] CC: Minerva Vergara MD; Jalil Nogueira MD Greens Tier: Signed 15-Nov-2015 Abdomen/Pelvis WITH Contrast Result: Comments: See Note; NOTES: [facility] Imaging Services [address] [place] [address] Verda 4d Abdomen/Pelvis WITH Contrast MR#: [id number] Acct: [id number] Name : IRIS ARRIAGA Rep #: [id number] : 1940 F 75 From: Sofia Storey MD PCP: Minerva Vergara MD Status: REG ER Study: Abdomen/Pelvis WITH Contrast Date of Exam: 11/15/15 Exam# [id number] Order ing Dr: Jalil Nogueira MD STUDY: [...] MD at 20:10 EDT , Service support [phone], CC: Minerva Vergara MD; Jalil Nogueira MD Greens Tier: Signed 31-Oct-2015 Cerv Spine 4 or 5 Views Result: Comments: See Note; NOTES: [facility] Imaging Services [address] [place] [address] Verdana 4d Cerv Spine 4 or 5 Views MR#: [id number] Acct: [id number] Name: IRIS WRAY Rep #: [id number] : 1940 F 75 From: Alexey Stephens MD PCP: Minerva Vergara MD Status: REG CLI Study: Cerv Spine 4 or 5 Views Date of Exam: 10/31/15 Exam# [id number] Ordering Dr: Tiffanie Corcoran DO STUDY: X-RAY [...] a t 13:54 EDT , Service support [phone], RAD/Cerv Spine 4 or 5 Views IMPRESSION: Severe cervical spondylosis. Electronically Signed: Earl Stephens MD, FACR at 13:54 EDT , Service support [phone], CC: Tiffanie Saha DO; Minerva Vergara MD Greens Tier: Signed 28-Sep-2015 PT D/C Summary (1) Result: Comments: See Note; NOTES: [facility] Physical Therapy [facility] [address] [place] [address] Fax REHABILITATION SE [place] DISCHARGE SUMMARY MR#: [id number] Acct: [id number] Name: IRIS ARRIAGA Rep #: [id number] : 1940 75 From: Kelvin Newman DPT, [...] please feel free to call me at [phone]. Thank you for the referral of this patient. Sincerely, Kelvin Newman <Electronically signed by Kelvin Newman DPT, OCS, CSCS> 09/28/15 0944 CC: Minerva Vergara MD; Nerissa Bhat EBG Signed 24-Aug-2015 PT Communication Result: Comments: See Note; NOTES: [facility] Physical Therapy [place] [address] [facility]. [address] [place] [address] Fax REHABILITATION SE RVICES PROGRESS NOTE MR#: [id number] Acct: [id number] Name: IRIS ARRIAGA Rep #: [id number] : 1940 75 From: Kelvin Newman Referring Dr.: Nerissa Bhat Status: REG RCR Insurance: [employer]NA MEDICARE PPO ANTHEM PT Communication Note 08/24/[address] Nerissa Bhat M and Dr. Vergara, Thank you for the referral of Iris Arriaga to [facility] for physical therapy and balance assessment. I [...] me at the office. Thank you again. el Sincerely, Kelvin Newman Contact Information 08/24/15 1342 <Electronically signed by Kelvin Newman > Date Kelvin Newman Cosigner Signature (if applicable): Alessandro hernandez CC: Minerva Vergara MD; Nerissa Bhat Signed For Medicare only, by signing this I certify the plan of care. Physicians Signature Date 17-Aug-2015 Inital Evaluation - PT Result: Comments: See Note; NOTES: [facility] Physical Therapy [facility] [address] [place], [place] [address] Fax REHABILITATION SE RVICES INITIAL EVALUATION MR#: [id number] Acct: [id number] Name: IRIS ARRIAGA Rep #: [id number] : 1940 75 From: Kelvin Newman Referring Dr.: Nerissa Bhat Status: REG RCR Insuranc e: HU[employer] MEDICARE PPO Eval Date: ANTHEM Patient's Visit Information IRIS ARRIAGA is a 75 year old F, referred to Physical Therapy by Mert Raygoza,, with a diagnosis of syncope, we akness. Date of Evaluation: 08/16/15 Physical Therapist: Kelvin Newman - Visit Plan Frequency: 2x /Week Duration: 4-6 Weeks - Subjective Fell at [employer] in May and hurt head. Then p assed out shortly thereafter went to ER and was dehydrated. Went to Dr. vergara a couple weeks ago and was sent to ER for low blood pressure. Spent a few days in hospital and found that the pig valve is thickening. Will go to [facility] later in month as Dr. Huang sent [...] to be FAXED BACK to us at [phone] for Medicare purp oses. Please let me know if there are questions or concerns regarding this plan of care. Physician Signature: Date: <Electron icallgisell signed by Kelvin Newman > 08/17/15 0944 CC: Minerva Vergara MD; Nerissa Bhat EL Signed For Medicare only, by signing this I certify the plan of care. Physicians Signature Date 09-Aug-2015 Brain/Head without Contrast Result: Comments: See Note; NOTES: [facility] Imaging Services [address] [place] [address] Verdana 4d Brain/Head without Contrast MR#: [id number] Acct: [id number] Name: IRIS ARRIAGA Rep #: [id number] : 1940 F 75 From: Robert Osborn MD PCP: Minerva Vergara MD Status: REG ER Study: Brain/Head without Contrast Date of Exam: 08/09/15 Exam# [id number] Ordering D r: Sneha Baptiste MD STUDY: [...] at 13:15 EST Tel , Service support [phone], CC: Minerva sierra MD; Sneha Baptiste MD Greens Tier: Signed 09-Aug-2015 Chest 1 View (Portable) Result: Comments: See Note; NOTES: [facility] Imaging Services [address] [place] [address] Verdana 4d Chest 1 View (Portable) MR#: [id number] Acct: [id number] Name: IRIS WRAY Rep #: [id number] : 1940 F 75 From: Robert Osborn MD PCP: Minerva Vergara MD Status: REG ER Study: Chest 1 View (Portable) Date of Exam: 08/09/15 Exam# [id number] Ordering Dr: Sneha Baptiste MD STUDY: X-RAY [...] at 12:43 EST Tel , Service support [phone], RAD/Chest 1 View (Portable) IMPRESSION: No acute pulmonary process, no interval change Electronically Signed: Josesito Osborn MD at 12:43 EST Tel , Service support [phone], CC: Minerva Vergara MD; Sneha Baptiste MD Greens Tier: Signed 20-Jul-2015 Chest PA and Lateral Result: Comments: See Note; NOTES: [facility] Imaging Services [address] [place] [address] Verdana 4d Chest PA and Lateral MR#: [id number] Acct: [id number] Name: IRIS ARRIAGA Rep #: [id number] : 1940 F 75 From: Ed Fink MD PCP: Minerva Vergara MD Status: REG CLI Study: Chest PA and Lateral Date of Exam: 07/20/15 Exam# [id number] Ordering Dr: Minerva Amezquita MD STUDY: X-RAY [...] Ed Fink MD at 13:14 EST Tel [phone], Service support [phone], RAD/Chest PA and Lateral IMPRESSION: No acute abnormality is seen. Electronically Signed: Ed Fnik MD at 13:14 EST Tel [phone] , Service support [phone], CC: Minerva Vergara MD Greens Tier: Signed 06-Jun-2015 Brain/Head without Contrast Result: Comments: See Note; NOTES: [facility] Imaging Services [address] [place] [address] Verdana 4d Brain/Head without Contrast MR#: [id number] Acct: [id number] Name: IRIS ARRIAGA Rep #: [id number] : 1940 F 75 From: Ed Fink MD PCP: Minerva Vergara MD Status: REG ER Study: Brain/Head without Contrast Date of Exam: 06/06/15 Exam# [id number] Ord ering Dr: Kermit Verduzco MD STUDY: CT [...] Fink MD a t 16:13 EDT Tel [phone], Service support [phone], CC: Minerva Vergara MD; Kermit Verduzco MD Greens Tier: Signed 06-Jun-2015 Chest 1 View (Portable) Result: Comments: See Note; NOTES: [facility] Imaging Services [address] [place] [address] Verdana 4d Chest 1 View (Portable) MR#: [id number] Acct: [id number] Name: IRIS WRAY Rep #: [id number] : 1940 F 75 From: Farhad Cedillo MD PCP: Minerva Vergara MD Status: REG ER Study: Chest 1 View (Portable) Date of Exam: 06/06/15 Exam# [id number] Ordering Dr: Kermit Verduzco MD STUDY: X-RAY [...] at 17:06 EDT Tel , Service support [phone], [place] ER #: [id number] RAD/Chest 1 View (Portable) IMPRESSION: 1. Left-sided bipolar pacemaker seen with leads appearing in good position. 2. Moderate cardiomegaly. 3. Status post sternotomy changes. 4. There is no evidence of infiltrate, atelectasis, or pleural fluid. Electronically Signed: Farhad Cedillo MD at 17:06 EDT Tel , Service support [phone], Fax CC: Minerva Vergara MD; Kermit Verduzco MD Greens Tier: Signed 06-Jun-2015 Pelvis 1 or 2 Views Result: Comments: See Note; NOTES: [facility] Imaging Services [address] [place] [address] Verdana 4d Pelvis 1 or 2 Views MR#: [id number] Acct: [id number] Name: IRIS ARRIAGA Rep #: [id number] : 1940 F 75 From: Ed Fink MD PCP: Minerva Vergara MD Status: REG ER Study: Pelvis 1 or 2 Views Date of Exam: 06/06/15 Exam# [id number] Ordering Dr: Kermit Verduzco MD STUDY: X-RAY [...] Ed Fink MD at 16:15 EDT Tel [phone], Service support [phone], RAD/Pelvis 1 or 2 Views IMPRESSION: Status post bilateral total hip replacement. Elect ronically Signed: Ed Fink MD at 16:15 EDT Tel [phone], Service support [phone], CC: Minerva Vergara MD; Kermit Verduzco MD Greens Tier: Signed 06-Jun-2015 Spine Cervical without Contras Result: Comments: See Note; NOTES: [facility] Imaging Services [address] [place] [address] Verdana 4d Spine Cervical without Contras MR#: [id number] Acct: [id number] me: IRIS ARRIAGA Rep #: [id number] : 1940 F 75 From: Ed Fink MD PCP: Minerva Vergara MD Status: REG ER Study: Spine Cervical without Contras Date of Exam: 06/06/15 Exam# [id number]: Kermit Verduzco MD STUDY: [...] Ed Fink MD at 16:15 EDT Tel [phone], Service support [phone], CC: Minerva Vergara MD; Kermit Verduzco MD Greens Tier: Signed 19-Apr-2015 Spine Lumbar without Contrast Result: Comments: See Note; NOTES: [facility] Imaging Services [address] [place] [address] CAT Scan Report MR#: [id number] Acct: [id number] Name: IRIS ARRIAGA Rep #: [id number] : 1940 F 75 From: Tami Rodriguez MD PCP: Minerva Vergara MD Status: REG CLI Study: Spine Lumbar without Contrast Date of Exam: 04/19/15 Exam# [id number] Ordering Dr: Monica Mir Out o. STUDY: CT LUMBAR SPINE WITHOUT [...] at 14:58 EDT Tel , Service support [phone], CC: Minerva Vergara MD; OUT OF TOWN DOCTOR Greens Tier: Signed 19-Apr-2015 Lumbar Myelogram Result: Comments: See Note; NOTES: [facility] Imaging Services [facility] [place] [address] Radiology Report MR#: [id number] Acct: [id number] Name: IRIS ARRIAGA Rep #: [id number] : 1940 F 75 From: Tami Rodriguez MD PCP: Minerva Vergara MD Status: REG CLI Study: Lumbar Myelogram Date of Exam: 04/19/15 Exam# [id number] Ordering Dr: CRISTIAN COFFEY CLINICAL HISTORY : [...] at 15:12 EDT Tel , Service support [phone], RAD/Lumbar Myelogram IMPRESSI ON: There is severe spinal canal stenosis at L4-5. Electronically Signed: Jessy Rodriguez MD at 15:12 EDT Tel , Service support [phone], CC: Gina Vergara MD; CRISTIAN COFFEY Greens Tier: Signed 10-Apr-2015 Discharge Instruction Result: Comments: See Note; NOTES: [facility] Medical Records Department [address] [place] [address] Discharge Instruction 04/03/15 1440 MR#: [id number] Acct: [id number] Name: IRIS ARRIAGA Rep #: [id number] : 1940 75 From: Ellen Gilman MD [...] problems, contact your doctor. Call [facility] ([phone]) or report to the closest Emergency Room. Call 911 if necessary. 04/03/15 1441 <Electronically signed by Ellen Gilman MD> Date Ellen Gilman MD 04/10/15834<Electronically signed b gisell Polanco MD> Cosigner Signature (If Indicated): Date Rickie Polanco MD CC: Minerva Vergara MD 10-Apr-2015 Discharge Instruction Result: Comments: See Note; NOTES: [facility] Medical Records Department [address] [facility] [place] [address] Discharge Instruction 04/03/15 1448 MR#: [id number] Acct: [id number] Name: IRIS ARRIAGA Rep #: [id number] : 1940 75 From: Rickie Polanco MD PCP: Minerva Vergara MD Status: DEP ER ED Disposition - Plan for ED Patient: Disposition: Home or Assisted Living [facility] Complaint: Lower Extremity Injury Instructions: ED Leg [...] problems, contact your doctor. Call [facility] ([phone]) or report to the closest Emergency Room. Call 911 if necessary. 04/10 <Electronically signed by Rickie Polanco MD> Date Rickie Polanco MD Cosigner Signature (If Indicated): Date CC: Minerva Vergara MD 10-Apr-2015 Emergency Department Summary Result: Comments: See Note; NOTES: [facility] Medical Records Department [address] [place] [address] Emergency Department Summary MR#: [id number] Acct: [id number] Name: IRIS VALENCIA Rep #: [id number] : 1940 75 From: Ellen Gilman MD [...] acute. Ellen Gilman MD T: NTS JOB: [id number] 04/05/15 0836 <Electronically signed by Ellen Gilman MD> Date Ellen Gilman MD 04/10/15 0835 <Electronically signed by Natanael Polanco MD> Cosigner Signature (If Indicated): Date Rickie Polanco MD CC: Minerva Vergara MD Date Dictated: 04/03/15 1455 Date Transcribed: 04/03/15 145 Greens Tier: Signed 04-Apr-2015 12 Lead Electrocardiogram Result: Comments: See Note; NOTES: [facility] Cardiovascular Services [address] [place] [address] 12 Lead EKG 04/03/15 1351 MR#: [id number] Acct: [id number] Name: IGGY ARRIAGA Rep #: [id number] : 1940 75 From: Gurdeep Huang MD [...] ECG Confirmed by REINA TIRADO, GURDEEP ([id number]), publishing editor CAROLEE MARIEE ([id number]) on 04/04/2015 10:27:52 AM Referred By: VALENTINA Confirmed By:GURDEEP HUANG MD 04/04/15 1027 Date Gurdeep Huang MD CC: Minerva Vergara MD Date Dictated: 04/03/15 135 Date Transcribed: 04/03/15 135 Greens Tier: Signed 03-Apr-2015 Femur 2 Views Result: Comments: See Note; NOTES: [facility] Imaging Services [address] [place] [address] Radiology Report MR#: [id number] Acct: [id number] Name: IRIS ARRIAGA Rep #: [id number] : 1940 F 75 From: Ed Fink MD PCP: Minerva Vergara MD Status: REG ER Study: Femur 2 Views Date of Exam: 04/03/15 Exam# [id number] Ordering Dr: Rickie Polanco MD STUDY: X- RAY - RIGHT FEMUR REASON FOR STUDY: Female, 75 years old. Pain and soft tissue swelling. TECHNIQUE: 5 view(s) of the femur. COMPARISON: None. FINDINGS: The patient is status post right total hip replacement. The patient is also status post lateral hemiarthroplasty of the knee joint. Mild soft tissue swelling. IMPRES JAENEN: No acute abnormality is seen. Electronically Signed: Ed Fink MD at 12:59 EDT Tel [phone], Service support [phone], RAD/ Femur 2 Views IMPRESSION: No acute abnormality is seen. Electronically Signed: Ed Fink MD at 12:59 EDT Tel [phone], Service support [phone], CC: Minerva Vergara MD; Rickie Polanco MD Greens Tier: Signed 03-Apr-2015 Chest PA and Lateral Result: Comments: See Note; NOTES: [facility] Imaging Services [address] [place] [address] Radiology Report MR#: [id number] Acct: [id number] Name: IRIS ARRIAGA Rep #: [id number] : 1940 F 75 From: Ed Fink MD PCP: Minerva Vergara MD Status: REG ER Study: Chest PA and Lateral Date of Exam: 04/03/15 Exam# [id number] Ordering Dr: Ellen Gilman MD STUD Y: X-RAY CHEST REASON FOR EXAM: Female, 75 years old. Chest pain and chest tightness. TECHNIQUE: AP and lateral views of the chest. COMPARISON: Comparison is made with prior examination dated Febr ua2014. FINDINGS: There is blunting of the right [...] Ed Fink MD at 13:05 EDT Tel [phone], Service support [phone], Fax RAD/Chest PA and Lateral IMPRESSION: Mild degree of linear scarring at the lung bases and blunting of both costophrenic angles. Electronically Signed: Ed ledezma MD at 13:05 EDT Tel [phone], Service support [phone], CC: Ellen Gilman MD; Minerav Vergara MD Greens Tier: Signed 27-Mar-2015 Abd Inc Decub and/or Erect Result: Comments: See Note; NOTES: [facility] Imaging Services [address] [place] [address] Radiology Report MR#: [id number] Acct: [id number] Name: IRIS ARRIAGA Rep #: [id number] : 1940 F 75 From: Tylor Guzman DO PCP: Minerva Vergara MD Status: REG CLI Study: Abd Inc Decub and/or Erect Date of Exam: 03/27/15 Exam# [id number] Ordering Dr: Ida Quiñonez DO STUDY: X- [...] Guzman DO at 18:34 EDT Te l [phone], Service support [phone], 0093 RAD/Abd Inc Decub and/or Erect IMPRESSION: No acute abdominal pathology is noted. Electronically Signed: Tylor Guzman DO at 18:34 EDT Tel [phone], Service support [phone], CC: Minerva Vergara MD; Ida Quiñonez DO Greens Tier: Signed 20-Mar-2015 PT Discharge Summary Result: Comments: See Note; NOTES: [facility] Physical Therapy [facility] [address] [place] [address]. [address] [place] [address] Fax REHABILITATION SERVICES DISCHARGE SUMMARY MR#: [id number] Acct: [id number] Name: IRIS ARRIAGA Rep #: [id number] : 1940 75 From: Kelvin Newman Referring [...] program. Kelvin Newman, PT T: NTS JOB: [id number] <Electronically signed by Kelvin Newman > 03/20/15 0648 CC: Signed 25-Jan-2015 Chest PA and Lateral Result: Comments: See Note; NOTES: [facility] Imaging Services [address] [place] [address] Radiology Report MR#: [id number] Acct: [id number] Name: IRIS ARRIAGA Rep #: [id number] : 1940 F 75 From: Apolinar Ansari DO PCP: Minerva Vergara MD Status: REG CLI Study: Chest PA and Lateral Date of Exam: 01/25/15 Exam# [id number] Ordering Dr: Gurdeep Huang MD STUD Y: [...] Otherwise, no acute process. Electronically Signed: Leann arta DO Elan at 5:42 EDT Tel , Service support [phone], RAD/Chest PA and Lateral IMPRESSION: Very minimal left basilar atel ectasis. Otherwise, no acute process. Electronically Signed: Apolinar Ansari DO at 5:42 EDT Tel , Service support [phone], CC: Minerva Vergara MD; Gurdeep Huang MD Greens Tier: Signed 24-Jan-2015 Pulmonary Function Report Comp Result: Comments: See Note; NOTES: [facility] Pulmonary Services/Neurology [address] [place] [address] Pulmonary Function Test (Comp) MR#: [id number] Acct: [id number] Name: TANISHA REDIRIS Caitlin Rep #: [id number] : 1940 75 From: Jeremie Schultz MD Referring Dr: Peace Curran Status: REG CLI Ordering Dr: Peace Curran Date: 01/18/15 Location: PSN Sex: F C MAI E OF SERVICE: [...] MD C C: Gurdeep Huang MD T: NTS JOB: [id number] SPIROMETRY Ref ULN/LLN Pre Pre Post Post [...] MD Date Dictated: 01/19/151645 Date Transcribed: 01/19/151645 Greens Tier: Signed 19-Jan-2015 Inital Evaluation - PT Result: Comments: See Note; NOTES: [facility] Physical Therapy [facility] [address] [place] [address] Fax REHABILITATION SERVICES INITIAL EVALUATION MR#: [id number] Acct: [id number] Name: IRIS ARRIAGA Rep #: [id number] : 1940 75 From: Kelvin Newman Referring Dr.: Minerva Vergara MD Status: REG RCR Insurance: [employer]MA NA MEDICARE PPO Eval Date: [facility] Patient's Visit Information IRIS ARRIAGA is a [...] dizzyness, no obvious LE neuropathy. Live with [employer] in two story house, can do step s with rail. Basement sometimes for laundry but tries to minimize it due to fatigue. Basic ADLs I. Enjoys eating and reading and walking with . Shops with [employer], no AD. - Objective Objective: Ambulates with [...] Physicians Signature Date 10-Jan-2015 ELECTROCARDIOGRAM, COMPLETE (ECG) (05084) Result: [MEASUREMENTS ANALYSIS] Date of Test: 08/09/2015 10:29:14; Heart Rate: 78; MS Interval: 230; QRS: 114; QT Interval: 438; Corrected QT Interval (QTc): 469; P Wave Burket: 69; QRS Wave Burket: -7; T Wave Burket : 22; Blood Pressure: 140/90 [ECG DIAGNOSTIC STATEMENTS] Date of Test: 08/09/2015 10:29:14; Summary: Sinus Rhythm -First degree A-V block -Frequent pvcs - ventricular bigeminy Viridiana = 230- Nonspecific T-abnormality. ABNORMAL [MEASUREMENTS ANALYSIS] Date of Test: 08/09/2015 10:29:10; Heart Rate: 78; MS Interval: 230; QRS: 114; QT Interval: 438; Corrected QT Interval (QTc): 469; P Wave Burket: 69; QRS W ave Burket: -7; T Wave Burket: 22; Blood Pressure: 140/90 [ECG DIAGNOSTIC STATEMENTS] Date of Test: 08/09/2015 10:29:10; Summary: Sinus Rhythm -First degree A-V block -Frequent pvcs -ventricular bigeminy Viridiana = 230- Nonspecific T- abnormality. ABNORMAL 05-Jan-2015 PT Discharge Summary Result: Comments: See Note; NOTES: [facility] Physical Therapy [facility]. [address] [place] [address] Fax REHABILITATION SERVICES DISCHARGE SUMMARY MR#: [id number] Acct: [id number] Name: IRIS ARRIAGA Rep #: [id number] : 1940 74 From: Kelvin Newman Referring [...] to that program. Kelvin Newman, PT T: [facility] JOB: [id number] <Electronically signed by Kelvin Newman > 01/05/15 0931 CC: Signed 24-Nov-2014 Inital Evaluation - PT Result: Comments: See Note; NOTES: [facility] Physical Therapy [facility]. [address] [place] [address] Fax REHABILITATION SERVICES INITIAL EVALUATION MR#: [id number] Acct: [id number] Name: IRIS ARRIAGA Rep #: [id number] : 1940 74 From: Kelvin Newman Referring [...] is sleepin g well. She is a [employer] member here at [employer], but has not worked out here much [...] heat. Kelvin Newman, PT T: NTS JOB: [id number] <Electronically signed by Kelvin Newman > 11/24/14 0940 CC: Signed For [facility] only, by signing this I certify the plan of care. Physicians Signature Date 04-Nov-2014 Abdomen Single View Result: Comments: See Note; NOTES: [facility] Imaging Services [address] [place] [address] Radiology Report MR#: [id number] Acct: [id number] Name: IRIS ARRIAGA Rep #: [id number] : 1940 F 74 From: Ed Fink MD PCP: Minerva Vergara MD Status: REG CLI Study: Abdomen Single View Date of Exam: 11/04/14 Exam# [id number] Ordering Dr: Minerva Vergara MD STUDY : [...] Ed Fink MD at 14:10 EDT Tel [phone], Service support [phone], Fax RAD/Abdomen Single View IMPRESSION: Moderate amount of fecal material is seen throughout the colon. Electronically Signed: Ed Fink MD at 14: 10 EDT Tel [phone], Service support [phone], CC: Minerva Vergara MD Greens Tier: Signed 04-Nov-2014 Shoulder min 2 Views Result: Comments: See Note; NOTES: [facility] Imaging Services [address] [place] [address] Radiology Report MR#: [id number] Acct: [id number] Name: IRIS ARRIAGA Rep #: [id number] : 1940 F 74 From: Ed Fink MD PCP: Minerva Vergara MD Status: REG CLI Study: Shoulder min 2 Views Date of Exam: 11/04/14 Exam# [id number] Ordering Dr: Minerva Vergara MD STUD Y: [...] Ed Fink MD at 14:11 EDT Tel [phone], Service support [phone], CC: Minerva Vergara MD Greens Tier: Signed 21-Oct-2014 Echocardiogram Complete Result: Comments: See Note; NOTES: [facility] Cardiovascular Services [address] [place] [address] Echo Complete 10/19/14 1314 MR#: [id number] Acct: [id number] Name: CATHLEEN ARRIAGA Rep #: [id number] : 1940 74 From: Gurdeep Huang MD Attending Dr: Gurdeep Huang MD Status: REG I Ordering Dr: Gurdeep Huang MD Date: 10/19/14 Location: [facility] Sex: F C Admitted: Procedure This [...] Ordering Physician: Lo Huang Performed By: Jeanine Arenas, [facility] 10/19/141740 Date Gurdeep Huang MD CC: Minerva Vergara MD; Gurdeep Huang MD Date Dictated: 10/19/14 1314 Date Transcribed: 10/19/141740 Greens Tier: Signed 23-Sep-2014 12 Lead Electrocardiogram Result: Comments: See Note; NOTES: [facility] Cardiovascular Services [address] [place] [address] 12 Lead EKG 09/22/14 1440 MR#: [id number] Acct: [id number] Name: JARON ARRIAGA Rep #: [id number] : 1940 74 From: Peewee Cotto MD [...] Abnormal ECG Confirmed by PEEWEE COTTO ([id number]), publishing editor CAROLEE MARIEE ([id number]) on 09/23/2014 2: 44:4 7 PM Referred By: TRAV Confirmed By:PEEWEE COTTO 09/23/14 144 Date Peewee Cotto MD CC: Minerva Vergara MD Date Dictated: 09/22/141439 Date Transcribed: 09/22/141439 Greens Tier: Signed 22-Sep-2014 Discharge Instruction Result: Comments: See Note; NOTES: [facility] Medical Records Department [address] [place] [address] Discharge Instruction 09/22/14 1616 MR#: [id number] Acct: [id number] Name: IRIS ARRIAGA Rep #: [id number] : 1940 74 From: Kermit Verduzco MD PCP: Minerva Vergara MD Status: DEP ER ED Disposition - Plan for ED Patient: Disposition: Home Chief Complaint: Sync ope Instructions: ED Hypotension, Orthostatic What to do if you have Problems For any increased pain, shortness of breath, bleeding, nausea or vomiting, chest pain, or any unexpected problems, co ntact your doctor. Call [employer] [facility] ) or report to the closest Emergency Room. Call 911 if necessary. 09/22/14 8165 <Electronically signed by Kerimt Verduzco MD> Date Kermit Verduzco MD Cosigner Signature (If Indicated): Date CC: Minerva Vergara MD 22-Sep-2014 Emergency Department Summary Result: Comments: See Note; NOTES: [facility] Medical Records Department [address] [facility] [place] [address] Emergency Department Summary MR#: [id number] Acct: [id number] Name: IRIS ARRIAGA Rep #: [id number] : 1940 74 From: Kermit Verduzco MD [...] stood up quickly and went over to marketing co op, 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 She [...] Discharge. Kermit Verduzco MD T: NTS JOB: [id number] 09/22/14 1725 <Electronically signed by Kermit Verduzco MD> Date Kermit Verduzco MD CC: Minerva Vergara MD Date Dictated: 09/22/141614 Date Transcribed: 09/22/141614 Greens Tier: Signed 22-Sep-2014 Chest PA and Lateral Result: Comments: See Note; NOTES: [facility] Imaging Services [address] [place] [address] Radiology Report MR#: [id number] Acct: [id number] Name: ETHELIRIS S Rep #: [id number] : 1940 F 74 From: Ed Fink MD PCP: Minerva Vergara MD Status: REG ER Study: Chest PA and Lateral Date of Exam: 09/22/14 Exam# [id number] Ordering Dr: Kermit Verduzco MD ROWAN DY: [...] CC: Minerva Vergara MD; Kermit Verduzco MD Greens Tier: Signed Family History Unknown Family Member Name [...] Status: 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 Status: Active Smoking Status Name Dates Details Never smoker Vital Signs Date Test Result Details :10 Temperature 97.4 f Comments: Method: Temporal Pulse 80 /min Comments: Pattern: Regular Respiration Rate 18 /min Comments: Pattern: Unlabored O2 SAT 97 % Comments: Room air BP Systolic 123 mm[Hg] Comments: Patient Position: Sitting; Cuff Location: Left Arm; Cuff Size: Standard BP Diastolic 64 mm[Hg] Comments: Patient Position: Sitting; Cuff Location: Left Arm; Cuff Size: Standard Weight 180 lb Height 67.3 in Body Mass Index Calculated 27.94 kg/m2 Body Surface Area Calculated 1.94 m2 :49 Temperature 97.8 f Comments: Method: Temporal [...] kg/m2 Body Surface Area Calculated 2 m2 34-Kea-364034:24 Temperature 97.5 f Comments: Method: Temporal Pulse [...] kg/m2 Body Surface Area Calculated 1.98 m2 47-Edg-046711:40 Temperature 97.9 f Comments: Method: Temporal Pulse [...] kg/m2 Body Surface Area Calculated 1.97 m2 36-Hmk-381630:15 Comments: sitting- spo2 on 2L- 89% P66 [...] 157 lb Results Date Description Value Details 04-Akn-626196:05 Culture, Deep Wound Comments: [facility] [address] [facility]. [place], [place], [address] CUDW See Note (Normal) Comments: Gram StainGram Stain 4+ Red Blood Cells 1+ White Blood Cells 1+ Gram positive cocci Wound CultureIdentification and sensitivity to follow. ORGANISM 1: Staphylococcus aureusAmount Growth 3+ ORGANISM 2: Gram negative rodAmount Growth 1+ :57 Basic Metabolic Profile (BMP) Comments: [facility] [address] [facility]. [place], [place], [address] GAP 9 (Normal) Range: 5-15 CO2 32.0 mmol/L (Normal) Range: 21.0-32.0 CL 94 mmol/L (Abnormal) Range: 98-107 K 3.7 mmol/L (Normal) Range: 3.5-5.1 Comments: Moderate Hemolysis, Result may be falsely increased. NA 135 mmol/L Range: 136-145 (Abnormal) CA 9.3 mg/dL (Normal) Range: 8.5-10.1 BUN/CRE 29.3 {RATIO} Range: 10-20 (Abnormal) EST GFR - AA 47 mL/min (Abnormal) Comments: GFR Calc EST GFR 39 mL/min (Abnormal) Comments: Non- GFR Calc CREAT,SERUM 1.40 mg/dL Range: 0.55-1.02 (Abnormal) Comments: The validity of the calculated GFR AND GFRAA in patients over70 years has not been determined. Clinical correlation isessential. BUN 41 mg/dL (Abnormal) Range: 7-18 GLU 112 mg/dL (Abnormal) Range: 74-106 Comments: Fasting Glucose result from 100 to 125 mg/dLsuggests IMPAIRED HOMEOSTASIS per A.D.A. criteria.Please note revised GLUCOSE reference range vdncalgxf56/02/2018. 14-Jul-20188:3 EGD ([facility]) See Note (Normal) Comments: [facility] [address] [place], [address] 0 Comments: Patient: IRIS ARRIAGA : 1940 (78/F) Acct Num: [id number] Phys: Alejandro Armendariz MD Unit Num: [id number] Loc: EN Specimen: [id number] Received: 07/14/18952 Spec Type: EGD BIOPSY TISSUES 1 TISSUES: A. Gastric mucous membrane B. Gastric mucous membrane C. Esophageal mucous membrane COMMENT A. The results of immunohistoc hemistry for Helicobacter pylori will be reportedseparately ([id number]). C. Alcian blue/PAS stain with matched control supports the above diagnosis. GROSS DESCRIPTION A - Received in fixative is o ne container labeled with the patient's name and designated biopsy lesser curvature. The specimen consists of multiple irregular fragments of light ferguson soft tissue that in aggregate measure 0.7 x 0.6 x 0.1 cm. The specimen is totally submitted in one cassette. B - Received in fixative is one container labeled with the patient's name and designated biopsy mucosal fullness mid stomach. The spec imen consists of two irregular fragments of light ferguson soft tissue that in aggregate measure 0.7 x 0.4x 0.1 cm. The specimen is totally submitted in one cassette. C - Received in fixative is one conta iner labeled with the patient's name and designated biopsy distal esophagus. The specimen consists of multiple irregular fragments of light ferguson soft tissue that in aggregate measure 0.6 x 0.5x 0.1 cm . The specimen is totally submitted in one cassette. / SJ:juan j 07/14/18 TC:3 CPT: 34523 x3, 33380 HEADER OPERATION: EGD ([facility]) PRE-OP DIAGNOSIS: Anemia TISSUE SUBMITTED: A - Lesser curvature healed ulcer biopsy for H. pylori and pathology, B - Mucosal fullness mid stomach biopsy, C - Distal esophageal biopsy MICROSCOPIC DESCRIPTION Slides are reviewed. MICROSCOPIC DIAGNOSIS A. Gastri c ulcer, lesser curvature of stomach, biopsy: Mild chronic gastritis. B. Mid stomach, biopsy: Mild to moderate chronic gastritis. C. Distal esophagus, biopsy: Gastroesophageal ju nction mucosa with chronic inflammation and mild acute inflammation. No evidence of intestinal metaplasia. AM:juan j 07/15/18 Signed [facility] 07/15/18 <signature on file> 14-Jul-20188:3 IMMUNOHISTOCHEMISTRY See Note (Normal) Comments: [facility] [address] [place], [address] 0 Comments: Patient: IRIS ARRIAGA : 1940 (78/F) Acct Num: [id number] Phys: Kala ITRADO,Alejandro Unit Num: [id number] Loc: EN Specimen: [id number] Received: 07/15/18 - 1011 Spec Type: IMM AYSE TISSUES 1 TISSUES: A. Stomach, NOS SPECIMEN INFORMATION: Tissue Source: A - Lesser curvature healed ulcer biopsy Clinical Info: Anemia Specimen Number: [id number] CPT code: 88427 METHODOLOGY: Deparaffinized sections of prefer/formalin- fixed tissue or PAP/DQ stained slides are incubated with monoclonal/polyclonal antibodies/oligonucleotide probes. Localizat ion is made via biotin free immunoperoxidase method. Appropriate controls are performed and reacted as expected. Results on target cell population are indicated in the following table: RESULTS: ANT IBODY / CLONE RESULT Block A H Pylori (polyclonal) negative These tests were developed and their performance characteristics determined by [facility]. They may not have been cleared or approved by the U.S. Food and Drug Administration. The FDA has determined that such clearance or approval is not necessary. INTERPRETATION: A. L louise curvature healed ulcer biopsy: Negative for Helicobacter pylori organisms. AM:juan j 07/15/18 PHYSICIAN AND INSTITUTION [address] [address] Signed Abrahan Yonatan 07/15/18 <signature on file> :00 Comments: Non-[facility] - refer to report for specific site [id number] TRANSFUSED PRODUCT: T AND S with Crossmatch, Red Cells COUNT: 2 (Normal) :00 Type AND Screen Comments: CMV NEG? NNumber of units to transfuse: 2Comments: hematoma rt knee surgeryReason for Ordering Blood: AcuteAre the blood/blood products to be transfused? YIs the patient having/had surgery? YGive When? When ReadyIrradiated? NLeukodepleted? YSurgery Date: 06/18/18Type of Surgery: [facility] [address] [facility] [place], [address] Antibody Screen NEGATIVE (Normal) BLOOD TYPE GEL AB POSITIVE (Normal) :00 Type AND Screen Comments: CMV NEG? NNumber of units to transfuse: 2Comments: hematoma rt knee surgeryReason for Ordering Blood: AcuteAre the blood/blood products to be transfused? YIs the patient having/had surgery? YGive When? When ReadyIrradiated? NLeukodepleted? YSurgery Date: 06/18/18Type of Surgery: [facility] [address] [facility] [place], [address] Antibody Screen NEGATIVE (Normal) BLOOD TYPE GEL AB POSITIVE (Normal) 0-Zur-801465:10 Basic Metabolic Profile (BMP) Comments: [facility] [address] [facility] [place], [address] GAP 7 (Normal) Range: 5-15 CO2 35.0 [...] A.D.A. criteria.Please note revised GLUCOSE reference range tpblpylxn02/02/2018. 6-Eqz-998347:10 CBC W/Diff, Automated Comments: [facility] [address] [place], [place], [address] Absolute Lymph 1.12 {X10_3/ul} (Normal) Range: 0.83-4.51 [...] 4.2-5.4 WBC 8.5 K/mm3 (Normal) Range: 4.4-11.0 9-Qkv-603863:10 Liver Profile Comments: [address] [place], [address] D BILI 0.14 mg/dL (Normal) Range: 0.00-0.30 T BILI 0.50 mg/dL (Normal) Range: 0.20-1.00 ALT 26 U/L (Normal) Range: 13-56 ALK P 78 U/L (Normal) Range: 45-117 AST 30 U/L (Normal) Range: 15-37 GLOB 4.3 g/dL (Abnormal) Range: 2.2-4.2 ALB 3.7 g/dL (Normal) Range: 3.2-5.0 T PROT 8.0 g/dL (Normal) Range: 6.4-8.2 0-Xay-984835:10 Partial Thromboplast Time Comments: [address], [address] PTT 27.7 s (Normal) Range: 24.1-36.2 7-Dmf-653881:10 Prothrombin Time w/INR Comments: [address], [address] INR 1.4 (Normal) PROTIME 17.1 s (Abnormal) Range: 11.7-14.9 36-Lmd-568545:20 Metabolic Panel, Basic Comments: PATIENT NOT FASTINGPERFORMED BY: [facility] System[facility]iniqv7424 [facility] [id number] ([address]) Calcium 9.4 mg/dL (Normal) Range: 8.7-10.3 Carbon [...] 8-27 Glucose 72 mg/dL (Normal) Range: 65-99 42-Skz-82611:13 Pathology Report Comments: PERFORMED BY: NISHAIN [facility] Mccool Xpwh7645 [facility] [id number] BY: KWCYT [facility] [place] Cyto Extyy08106 [facility] [id number] Clinical Information: [id number] See MATER Comments: Material submitted: .ABDOMINAL BIOPSYClinical [...] ENTIRELY SUBMITTEDIN ONE CASSETTE.BCO/SMIPathologist provided ICD-10:D21.4, L82.1CPT .294441 09-Nyt-884489:35 Comprehensive Metabolic Profil Comments: [facility] [address] [place], [place], [address] GAP 8 (Normal) Range: 5-15 CO2 33.0 mmol/L (Abnormal) Range: 21.0-32.0 CL 95 mmol/L (Abnormal) Range: 98-107 K 3.6 mmol/L (Normal) Range: 3.5-5.1 NA 136 mmol/L (Normal) Range: 136-145 T BILI 0.70 mg/dL (Normal) Range: 0.20-1.00 ALT 23 U/L (Normal) Range: 13-56 Comments: Please note revised ALT reference range fbvludnmh09/28/2018. ALK P 79 U/L (Normal) Range: 45-117 [...] Comments: Please note revised GLUCOSE reference range wggtlnaee06/02/2018. 13-Isb-575753:35 Phosphorus Comments: [facility] [address] [place], [address] PHOS 4.0 mg/dL (Normal) Range: 2.5-4.9 38-Pfo-962011:35 Uric Acid Comments: [facility] [address] [place], [address] URIC 10.9 mg/dL (Abnormal) Range: 2.6-6.0 Comments: The drugs N-Acetylcysteine and Metamizole may falselydepress this assay. 69-Pfn-641053:19 Metabolic Panel, Comments: fax a copy to Dr. Tucker [phone] Huang [phone]; A courtesy copy of this report has been sent [phone], .PATIENT NOT FASTINGPERFORMED BY: [facility] fl6035 [facility] ([address]) x [facility] [id number] Information: HARD DRAW/BUTTERFLY ALT (SGPT) 19 [iU]/L [...] Glucose, Serum 97 mg/dL (Normal) Range: 65-99 17-Gsn-820499:56 Basic Metabolic Profile (BMP) Comments: Order Date: 08/07/17Order Info: 0667-1 - BMPComments: now stat and [facility] [address] [place], [address] GAP 8 (Normal) Range: 5-15 [...] 7-18 GLU 80 mg/dL (Normal) Range: 70-110 75-Cmf-999363:23 CREATININE FINGERSTICK Comments: [facility] LaboratoryPoint of Syme[address] [place] [place] [address] CREATININE WB 1.3 mg/dL (Abnormal) Range: 0.55-1.02 11-Sep-20171:20 CBC WITH MANUAL DIFF Comments: PATIENT NOT FASTINGPERFORMED BY: [facility] SystemClftwc9423 [facility] [id number] Information: NURSE DRAW (16825) Immature Grans (Abs) 0.0 {x10E3/uL} (Normal) Range: [...] Comprehensive Comments: PATIENT NOT FASTINGPERFORMED BY: [facility] S[address]pxa[address] [facility] [id number] ([address]) ALT (SGPT) 11 [iU]/L (Normal) Range: 0-32 [...] 101 mg/dL (Abnormal) Range: 65-99 11-Sep-20171:20 URINALYSIS ([address]) Comments: PATIENT NOT FASTINGPERFORMED BY: [facility] Mdqtus6949 [facility] [id number] Microscopic Examination MICNIP (Normal) Comments: Microscopic not indicated and not performed. Nitrite, Urine Negative (Normal) Urobilinogen,Semi-Qn 1.0 mg/dL (Normal) Range: 0.2-1.0 Bilirubin Negative (Normal) Occult Blood Negative (Normal) Ketones Negative (Normal) Glucose Negative (Normal) Protein Trace (Normal) WBC Esterase Negative (Normal) Appearance Clear (Normal) Urine-Color Yellow (Normal) pH 7.0 (Normal) Range: 5.0-7.5 Specific [place] 1.018 (Normal) Range: 1.005-1.030 6-Llc-460491:34 Basic Metabolic Profile (BMP) Comments: [facility] [address] [place], [place], [address] GAP 10 (Normal) Range: 5-15 CO2 26.0 [...] 7-18 GLU 92 mg/dL (Normal) Range: 70-110 27-Atc-521913:03 Basic Metabolic Profile (BMP) Comments: Order Date: 05/01/17Order Info: 0667-1 - *BMPComments: Reason:[facility] [address] [place], [address] GAP 5 (Normal) Range: 5-15 CO2 28.0 [...] 7-18 GLU 64 mg/dL (Abnormal) Range: 70-110 00-Tbx-281059:16 Renal function Panel ([address]) Comments: PATIENT NOT FASTINGPERFORMED BY: [facility] Cktedi9187 [address] [facility] [id number] Albumin, Serum 4.3 g/dL (Normal) Range: 3.5-4.8 [...] Glucose, Serum 91 mg/dL (Normal) Range: 65-99 70-Nef-50014:15 Urinalysis, Complete Comments: Order Date: 03/31/17How was Urine Obtained? IMMUNOHEMATOLOGIST TO [facility] [address] [place], [address] MUCUS, URINE 0 SEEN {/hpf} (Normal) BACTERIA [...] Comments: Yes/No query for Sepsis Lactate Rule [facility] [address] [place], [place], [address] LACTIC ACID 0.8 mmol/L (Normal) Range: 0.4-2.0 :39 BNP,B-Type NATRIURETIC PEPTIDE Comments: [facility] [address] [place], [place], [address] B-TYPE HUMBLE PEP 1017.0 pg/mL (Abnormal) Range: 0-100 :39 CBC W/Diff, Automated Comments: [facility] [address] [place], [address] ANISO 1+ (Normal) Absolute Lymph [...] specimen #1, #2, #3, or #4: [address] [place] [address] [address] [place], [place], [address] GAP 8 (Normal) Range: 5-15 CO2 26.0 [...] <126 mg/dLsuggests IMPAIRED HOMEOSTASIS per A.D.A. criteria. 62-Pcd-98975:39 Troponin-I Comments: 'TROP' Serial specimen #1, #2, #3, or #4: 1[facility] [address] [place], [address] TROPONIN-I 0.06 ng/mL (Normal) Comments: TROPONIN-I EXPECTED VALUES <0.05 NEGATIVE 0.06 - 0.59 AT RISK OF [place] > OR = 0.60 SUGGEST TX :03 Bedside Glucose Comments: [facility] LaboratoryPoint of [address]sj[address] [place] [address] BEDSIDE GLU 146 mg/dL (Abnormal) Range: 70-110 Comments: MANAGEMENT OF PATIENT CARE PER NURSING PROTOCOL 41-Vmy-383086:25 Vitamin D,25 Hydroxy Comments: Order Date: 01/17/17Order Info: 0788-1 - *Hepatic Function Panel3 ORDERING DOCTORS:REINA REID ORDERED: LIVER LIPIDDR.CAITLIN ORDERD: BMPMARY CIESA ORDERED: TSH, VITD, B5XSwlygrxProMedica [facility] Labor [address] [place], [address] Vitamin D 25-OH 35.2 ng/mL (Normal) Comments: Vitamin D 25(OH) Status Range Deficiency <20 ng/mL (50nmol/L) Insuffciency 20 - 30 ng/mL (50 - 75 nmol/L) Sufficiency 30 - 100 ng/mL (75 - 250 nmol/L) Toxicity >100 ng/mL (>250 nmol/L) 29-Puc-932987:20 Basic Metabolic Profile (BMP) Comments: Order Date: 01/17/17Order Info: 0788-1 - *Hepatic Function Panel3 ORDERING DOCTORS:REINA REID ORDERED: LIVER LIPIDDR.CAITLIN ORDERD: BMPMARY CIESA ORDERED: TSH, VITD, Q0IKuuek Date: 01/17/17Order Info: 85243-0 - *Lipid Profile CC PCPComments: 12 hours fasting, may have water.[facility] [address] [place], [place], [address] GAP 6 (Normal) Range: 5-15 CO2 31.0 [...] 7-18 GLU 109 mg/dL (Normal) Range: 70-110 13-Wkv-966146:20 Lipid Profile Comments: Order Date: 01/17/17Order Info: 0788- 1 - *Hepatic Function Panel3 ORDERING DOCTORS:REINA REID ORDERED: LIVER LIPIDDRSTANISLAV ORDERD: LORNE FRANKLIN ORDERED: TSH, VITD, C9MAcnkw Date: 01/17/17 Order Info: 51252-3 - *Lipid Profile CC PCPComments: 12 hours fasting, may have water.[facility] [address] [place], [place], [address] VLDL 20 mg/dL (Normal) Range: 5-40 LDL [...] 200-240 mg/dL Borderline >240 mg/dL High Risk 35-Mgh-185191:20 Liver Profile Comments: Order Date: 01/17/17Order Info: 0788- 1 - *Hepatic Function Panel3 ORDERING DOCTORS:REINA REID ORDERED: LIVER LIPIDDR.NOVY ORDERD: BMPMARY CIESA ORDERED: TSH, VITD, H1BBoagu Date: 01/17/17 Order Info: 25567-6 - *Lipid Profile CC PCPComments: 12 hours fasting, may have water.[facility] [address] [place], [place], [address] D BILI 0.24 mg/dL (Normal) Range: 0.00-0.30 T BILI 0.60 mg/dL (Normal) Range: 0.20-1.00 ALT 27 U/L (Normal) Range: 12-78 ALK P 84 U/L (Normal) Range: 45-117 AST 27 U/L (Normal) Range: 15-37 GLOB 3.7 g/dL (Abnormal) Range: 2.3-3.5 ALB 3.8 g/dL (Normal) Range: 3.4-5.0 T PROT 7.5 g/dL (Normal) Range: 6.4-8.2 20-Kpz-121669:20 T4 Free Direct Comments: Order Date: 01/17/17Order Info: 0788- 1 - *Hepatic Function Panel3 ORDERING DOCTORS:REINA REID ORDERED: LIVER LIPIDDR.NOVY ORDERD: BMPMARY CIESA ORDERED: TSH, VITD, H6AJkbnb Date: 01/17/17 Order Info: 28845-0 - *Lipid Profile CC PCPComments: 12 hours fasting, may have water.[facility] [address] [place], [place], [address] T4 FREE DIRECT 1.51 ng/dL (Abnormal) Range: 0.76-1.46 41-Lpl-206302:20 Thyroid Stim Hormone (TSH) Comments: Order Date: 01/17/17Order Info: 0788-1 - *Hepatic Function Panel3 ORDERING DOCTORS:REINA REID ORDERED: LIVER LIPIDDRSTANISLAV ORDERD: LORNE FRANKLIN ORDERED: TSH, VITD, J4DLzrvn Date: 01/17/17Order Info: [id number] - *Lipid Profile CC PCPComments: 12 hours fasting, may have water.[facility] [address] [place], [address] TSH 3.02 {uIU/mL} (Normal) Range: 0.358-3.74 03-Faa-855711:00 Pathology Report Comments: PERFORMED BY: [employer] [facility] [place] [facility] Funnw44264 [facility] [id number] BY: General acute hospital Dermatopathology P[address]na[address] [facility] [address] [place] [id number] Information: [id number] See MATER Comments: Material submitted: .SHAVE BIOPSY OF RIGHT ABDOMENClinician provided ICD-10:L82.1Clinical history: . Note (Normal) Diagnosis:BENIGN VERRUCAL KERATOSIS.02/08/2017Electronically signed: .Gege Reece MD, DermatopathologistGross description: .SUBMITTED IN FORMALIN LABELED IRIS ARRIAGA AND IS DESIGNATEDRIGHT ABDOMEN IS A FRAGMENT OF FERGUSON TISSUE THAT MEASURES 1.4 X .8X .3 CM. THE MARGINS ARE INKED BLUE. THE SPECIMEN IS TRISECTEDAND SUBMITTED IN TOTO.XJW/BXSPathologist provided ICD-10:D23.5CPT .151967 96-Jun-714115:12 Basic Metabolic Profile (BMP) Comments: Order Date: 01/15/17Order Info: 0667-1 - *BMPComments: Reason:[facility] [address] [place], [place], [address] GAP 5 (Normal) Range: 5-15 CO2 32.0 [...] 7-18 GLU 82 mg/dL (Normal) Range: 70-110 8-Pfe-186374:04 Basic Metabolic Profile (BMP) Comments: Order Date: 01/08/17Order Info: 0667-1 - *BMPComments: Reason: BMP: [facility] [address] [place], [place], [address] GAP 11 (Normal) Range: 5-15 CO2 28.0 [...] <126 mg/dLsuggests IMPAIRED HOMEOSTASIS per A.D.A. criteria. 34-Xrl-080937:28 Lipid Profile Comments: Order Date: 06/18/16Order Info: 0788- 1 - *Hepatic Function PanelLIVER AND LIPID WERE ORDERED BY INE LEVEL ORDERED BY Date: 06/18/16Order Info: 11061-9 - *Lipid Profi le CC PCPComments: 12 hours fasting, december have water.[facility] [address] [facility]. [place], [place], [address] VLDL 14 mg/dL (Normal) Range: 5-40 LDL [...] 200-240 mg/dL Borderline >240 mg/dL High Risk 74-Ece-651098:28 Liver Profile Comments: Order Date: 06/18/16Order Info: 0788- 1 - *Hepatic Function PanelLIVER AND LIPID WERE ORDERED BY INE LEVEL ORDERED BY Date: 06/18/16Order Info: 17039-4 - *Lipid Profi le CC PCPComments: 12 hours fasting, december have water.[facility] [address] [place], [place], [address] D BILI 0.48 mg/dL (Abnormal) Range: 0.00-0.30 T BILI 1.10 mg/dL (Abnormal) Range: 0.20-1.00 ALT 62 U/L (Normal) Range: 12-78 ALK P 94 U/L (Normal) Range: 45-117 AST 59 U/L (Abnormal) Range: 15-37 GLOB 3.3 g/dL (Normal) Range: 2.3-3.5 ALB 3.7 g/dL (Normal) Range: 3.4-5.0 T PROT 7.0 g/dL (Normal) Range: 6.4-8.2 40-Smt-010212:28 Serum Creatinine AND GFR Comments: Order Date: 06/18/16Order Info: 0788-1 - *Hepatic Function PanelLIVER AND LIPID WERE ORDERED BY ATININE LEVEL ORDERED BY Date: 06/18/16Order Info: [id number] - *Lipid Profi le CC PCPComments: 12 hours fasting, may have water.[facility] [address] [place], [place], [address] EST GFR - AA 52 mL/min (Abnormal) Comments: GFR Calc EST GFR 43 mL/min (Abnormal) Comments: Non- GFR Calc CREAT,SERUM 1.29 mg/dL (Abnormal) Range: 0.55-1.02 Comments: The validity of the calculated GFR AND GFRAA in patients over70 years has not been determined. Clinical correlation isessential. 73-Gtk-671615:36 Anticardiolipin IgA,G,M Comments: [facility] (refer to report [...] Positive: >20 - 80 High Positive: >80 36-Tbf-803494:36 Comprehensive Metabolic Profil Comments: [facility] [address] [place], [address] GAP 4 (Abnormal) Range: 5-15 CO2 26.0 [...] 7-18 GLU 103 mg/dL (Normal) Range: 70-110 81-Gxm-180407:36 Fact V Leiden Mutation Comments: [facility] (refer to report for specific site)refer to report for address and phone number COMMENT (Normal) Comments: Comment:Genetic counselors are available for health care providersto discuss results at [phone]).Methodology:DNA analysis of the Factor V gene was performed byallele-specific PCR. The d iagnostic sensitivity andspecificity is >99% for both. Molecular-based testing ishighly accurate, but as in any laboratory test, diagnosticerrors may occur. All test results must be combined withclin ical information for the most accurate interpretation.This test was developed and its performance characteristicsdetermined by [facility]. It has not been cleared or approvedby the Food and Drug Administra tion.References:Nicholas Armijo (1995). Clin Lab Med 16:169-186.Raul Cano, PhD, Cinthya May, PhD, Wilbur Clemente, PhD, Marly Wen M.S., PhD, Lilia Way, PhD, Kaia Reynaga, PhD, [facility] Juarez PhD, [facility] FACTOR V LEIDEN (Normal) Comments: Result: [...] in the workup for venous thrombosis include [id number] mutation in the factor II (prothrombin) gene,protein S and C deficiency, and antithrombin deficiencies.Anticardiolipin antibody and lupus 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 an alysismay be appropriate for certain patients, as well ashomocysteine levels.Contact your local [facility] for information on how to orderadditional testing if desired. 06-Ohu-409820:36 Factor II, DNA Analysis Comments: [facility] (refer to report for specific site)refer to report for address and phone number COMMENT (Normal) Comments: Additional Information:Genetic Counselors are available for health care providersto discuss results at [phone] ([phone]).Methodology:DNA analysis of the Factor II gene was performed by Louis grewal followed by restriction analysis. Thediagnostic sensitivity is >99% for both. All the tests mustbe combined with clinical information for the most accurateinterpretation. Molecular-based testing is highly accurate,but as in any laboratory test, diagnostic errors may occur.This test was developed and its performance characteristicsdetermined by [facility]. It has not been cleared or approvedby the Food and Drug Administration.Poort SR, et al. Blood. 1996; 88:7985-1755.Robert GUTIÉRREZ. Circulation. 2004; 110:e15-e18.Stanislav I, et al. Arterioscler Thromb Vasc Biol. 1999;19:700-703.Raul Cano, Ph D, Cinthya May, PhD, Wilbur Clemente, PhD, Marly Wen MTammiSTammi, PhD, Lilia Way, PhD, Kaia Reynaga, PhD, [facility]REMERTONLeonard Juarez, PhD, [facility] COMMENT (Normal) Comments: Comment:A point mutation ([id number]) in the factor II (prothrombin)gene is the [...] individual mutations. This assay detects onlythe prothrombin [id number] mutation and does not measuregenetic abnormalities elsewhere in the genome. Otherthrombotic r isk factors may be pursued through systematicclinical laboratory analysis. These factors include [id number] (Leiden) mutation in the Factor V gene, plasmahomocysteine levels, as well as testing for defici encies ofantithrombin III, protein C and protein S. FACTOR II,DNA (Normal) Comments: Factor II, DNA Analysis NEGATIVE No mutation identified. :36 Partial Thromboplast Time Comments: [facility] F[address]wuprsxc[address] [facility] [address] [place], [place], [address] PTT 28.3 s (Normal) Range: 24.1-36.2 :36 Prothrombin Time w/INR Comments: [facility] Cplmkmojze7338 [facility] [address] [place], [place], [address] INR 1.3 (Normal) PROTIME 15.5 s (Abnormal) Range: 11.7-14.9 :39 CBC W/Diff, Automated Comments: Order Date: 12/02/16Order Info: 0184-1 - CBCDComments: coipy to Dr. jessie armendariz statOrder Date: 12/02/16Order Info: 0184-1 - CBCDComments: coipy to Dr. jessie armendariz statOrder Date: 12/02/16O rder Info: 0788-1 - LIVERComments: to stat copy to Dr. natalie armendarizWhidbeyhealth Medical Centersaroj [facility] [address] [place], [place], [address] Absolute Lymph 1.13 {X10_3/ul} (Normal) Range: 0.83-4.51 [...] 4.2-5.4 WBC 8.8 K/mm3 (Normal) Range: 4.4-11.0 47-Uau-05689:39 Liver Profile Comments: Order Date: 12/02/16Order Info: 0788-1 - LIVEROrder Date: 12/02/16Order Info: 0788-1 - LIVERComments: to stat copy to Dr. natalie trimblefelicitasWhidbeyhealth Medical Centersaroj [facility] [address] [place], [place], [address] D BILI 0.28 mg/dL (Normal) Range: 0.00-0.30 T BILI 0.80 mg/dL (Normal) Range: 0.20-1.00 ALT 33 U/L (Normal) Range: 12-78 ALK P 71 U/L (Normal) Range: 45-117 AST 30 U/L (Normal) Range: 15-37 GLOB 2.9 g/dL (Normal) Range: 2.3-3.5 ALB 3.8 g/dL (Normal) Range: 3.4-5.0 T PROT 6.7 g/dL (Normal) Range: 6.4-8.2 51-Aoa-648622:38 URINE DAR CULTURE (NOREEN Comments: PATIENT NOT FASTINGPERFORMED BY: [facility]CoUniversity [facility] Mexico HospitalsHememf0563 [facility] [id number] Information: SRC: COL COUNT) (93640) Antimicrobial MIHEAD (Normal) Comments: S = Susceptible; [...] Colonies/mL (Abnormal) Urine Final report Culture,Comprehensive (Abnormal) 30-Uch-89728:33 CBC W/Diff, Automated Comments: Order Date: 10/31/16Order Info: 0184-1 - CBCDOrder Info: [id number] - SEDOrder Date: 10/31/16Order Info: 0184-1 - CBCDOrder Info: [id number] - SEDOrder Date: 10/31/16Order Info: 3040-3 - LIPASEW [facility] [address] [place], [place], [address] Absolute Lymph 1.10 {X10_3/ul} (Normal) Range: 0.83-4.51 [...] Date: 10/31/16Order Info: 3040-3 - LIPASEComments: all [facility] H[address]jvp[address] [place] [address], [address] GAP 10 (Normal) Range: 5-15 CO2 26.0 [...] Date: 10/31/16Order Info: 0184-1 - CBCDOrder Info: [id number] - SEDOrder Date: 10/31/16Order Info: 0184-1 - CBCDOrder Info: [id number] - SEDOrder Date: 10/31/16Order Info: 3040-3 - LIPASEW [facility] [address] [place], [address] SED RATE 12 mm/h (Normal) Range: 0-30 :33 Lipase (48555) Comments: Order Date: 10/31/16Order Info: 0786- 1 - CMPOrder Info: 1798-8 - AMYOrder Info: 3040-3 - LIPASEOrder Date: 10/31/16Order Info: 3040-3 - LIPASEComments: all [facility] [address] [place], [address] LIPASE 216 U/L (Normal) Range: 73-393 :33 Amylase (11143) Comments: Order Date: 10/31/16Order Info: 0786- 1 - CMPOrder Info: 1798-8 - AMYOrder Info: 3040-3 - LIPASEOrder Date: 10/31/16Order Info: 3040-3 - LIPASEComments: all [facility] V[address]og[address]yuw44 [address] [place], [address] QUENTIN 56 U/L (Normal) Range: 25-115 :45 Urinalysis, Office (70959) UA - LEUKOCYTE ESTERASE Negative (Normal) UA - NITRITE Negative (Normal) URINE UROBILINGN NOREEN TIMED Normal mg/dL (Normal) UA - PROTEIN Negative mg/dL (Normal) UA - PH 6 (Abnormal) UA - BLOOD Non Hemolyzed Trace (Normal) UA - SPECIFIC GRAVITY 1.015 (Normal) UA - KETONES Negative mg/dL (Normal) UA - BILIRUBIN Negative (Normal) UA - GLUCOSE Negative (Normal) 42-Ejq-972538:00 Pathology Report Comments: PERFORMED BY: [facility] [place] Cyto Ddmdj88150 [facility] [id number] Information: [id number] See MATER Comments: Material submitted: .SHAVE BIOPSY [...] ARE 4 PIECES TOTAL./CORCOR/CORPathologist provided ICD-10:L82.1, B07.8CPT .322344 9-Wgl-182705:50 Basic Metabolic Profile (BMP) Comments: DR TUCKER IS ORDERING THE BMPOrder Date: 06/28/16OV Order #: [id number] Health Atrium Medical Center [address] [place], [place], [address] GAP 9 (Normal) Range: 5-15 CO2 28.0 [...] 7-18 GLU 89 mg/dL (Normal) Range: 70-110 8-Sir-764481:50 Lipid Profile Comments: DR TUCKER IS ORDERING THE BMPOrder Date: 06/28/16OV Order #: [id number] Health Atrium Medical Center [address] [place], [address] VLDL 14 mg/dL (Normal) Range: 5-40 LDL [...] 200-240 mg/dL Borderline >240 mg/dL High Risk 1-Jcb-808709:50 Liver Profile Comments: DR TUCKER IS ORDERING THE BMPOrder Date: 06/28/16 Order #: [id number] Health Atrium Medical Center [address] [place], [place], [address] D BILI 0.11 mg/dL (Normal) Range: 0.00-0.30 [...] ORDERING THE BMPOrder Date: 06/28/16 Order #: [id number] [place] [address] [address] [place], [place], [address] T4 THYROXIN 12.8 ug/dL (Normal) Range: 4.8-13.9 9-Ztr-826330:50 Thyroid Stim Hormone (TSH) Comments: DR TUCKER IS ORDERING THE BMPOrder Date: 06/28/16 Order #: [id number] [place] [address] [address] [place], [place], [address] TSH 2.26 {uIU/mL} (Normal) Range: 0.358-3.74 77-Bxb-023381:26 URINE DAR CULTURE-IDENTIFICATN Comments: PATIENT NOT FASTINGPERFORMED BY: [facility] Jrdtul8698 [facility] [id number] Information: SRC:ANDREW (34069) Result 1 ECV (Abnormal) Comments: Escherichia coli, [...] S Urine Final report Culture,Comprehensi (Abnormal) ve 75-Bom-05228:38 Urinalysis, Office (21832) UA - LEUKOCYTE ESTERASE Negative (Normal) UA - NITRITE Negative (Normal) URINE UROBILINGN NOREEN TIMED Normal mg/dL (Normal) UA - PROTEIN Negative mg/dL (Normal) UA - PH 5 (Abnormal) UA - BLOOD Hemolyzed Trace (Normal) UA - SPECIFIC GRAVITY 1.010 (Normal) UA - KETONES Negative mg/dL (Normal) UA - BILIRUBIN Negative (Normal) UA - GLUCOSE Negative (Normal) 32-Ewj-075617:02 Comprehensive Metabolic Profil Comments: CMP IS FOR DR. Morasaroj [facility] [address]dt[address]vieh[address] [place], [place], [address] GAP 8 (Normal) Range: 5-15 CO2 27.0 [...] 7-18 GLU 85 mg/dL (Normal) Range: 70-110 18-Ebv-826310:02 T4 Total, Thyroxin Comments: CMP IS FOR [facility]ENTERGisellPremier Health [facility] [address] [place], [place], [address] T4 THYROXIN 13.1 ug/dL (Normal) Range: 4.8-13.9 03-Wib-355512:02 Thyroid Stim Hormone (TSH) Comments: CMP IS FOR [facility]ENTERGisellPremier Health At[facility] Center [address] [place], [address] TSH 1.34 {uIU/mL} (Normal) Range: 0.358-3.74 :25 COLON BIOPSY (CHOOSE See Note (Normal) Comments: [facility] [address] [place], [address] SITE) Comments: Patient: IRIS ARRIAGA : 1940 (76/F) Acct Num: [id number] Phys: Clifford Gifford Unit Num: [id number] Loc: EN Specimen: [id number] Received: 01/30/16 0850 Spec Type: COLON BX TISSUES TISSUES: GROSS DESCRIPTION Received is one container labeled with the patient name and designated mid ascending polyp. The specimen consists of two irregular fragments of light tansoft tissue that in aggregate measure 0.3 x 0.2 x 0.1 cm. The specimen is totally submitted in one cassette. / ELLA:juan j 01/30/16 TC:5 CPT:59812 HEADER OPERATION: Colonoscopy PRE-OP DI AGNOSIS: Screening TISSUE SUBMITTED: Mid ascending polyp MICROSCOPIC DESCRIPTION Slides are reviewed. MICROSCOPIC DIAGNOSIS Mid ascending colon polyp, biopsy: Fragments of tubular adenoma. AM:juan j 01/31/16 Signed Abrahan Tam 01/31/16 <signature on file> 97-Wyu-481685:12 Basic Metabolic Profile (BMP) Comments: ORDERED BMPDR.[facility] CENTERDonna ORDERED TSH T4 LIPID [facility] [address] [place], [address] GAP 6 (Normal) Range: 5-15 [...] 7-18 GLU 78 mg/dL (Normal) Range: 70-110 51-Ufu-152396:12 Lipid Profile Comments: ORDERED BMPDR.[facility] SHEL[facility] COUNTYISPAW ORDERED TSH T4 LIPID [facility] [address] [place], [address] VLDL 15 mg/dL (Normal) Range: [...] 200-240 mg/dL Borderline >240 mg/dL High Risk 16-Dfx-126135:12 Liver Profile Comments: ORDERED KIMBERLEE ORDERED TSH T4 [facility] [address]vetzczn[address] [place], [address] D BILI 0.17 mg/dL (Normal) Range: 0.00-0.30 T BILI 0.50 mg/dL (Normal) Range: 0.20-1.00 ALT 37 U/L (Normal) Range: 12-78 ALK P 68 U/L (Normal) Range: 50-136 AST 26 U/L (Normal) Range: 15-37 GLOB 3.8 g/dL (Abnormal) Range: 2.3-3.5 ALB 3.5 g/dL (Normal) Range: 3.4-5.0 T PROT 7.3 g/dL (Normal) Range: 6.4-8.2 18-Lmk-803580:12 T4 Total, Thyroxin Comments: ORDERED KIMBERLEE ORDERED TSH T4 [facility] [address]btodai[address] [place], [address] T4 THYROXIN 14.3 ug/dL (Abnormal) Range: 4.8-13.9 15-Cdo-031942:12 Thyroid Stim Hormone (TSH) Comments: ORDERED KIMBERLEE ORDERED TSH T4 [facility] [address]wsaw[address] [place], [address] TSH 2.32 {uIU/mL} (Normal) Range: 0.358-3.74 51-Fku-51850:37 Rapid Flu (30811 x 2) Influenza A Ag neg (Normal) 83-Zwz-355713:28 Metabolic Panel, Basic Comments: PATIENT NOT FASTINGPERFORMED BY: [facility]CoCentraState Healthcare SystemBlmohf2902 [facility] [id number] (48734) Calcium, Serum 8.7 mg/dL (Normal) Range: 8.7-10.3 [...] Glucose, Serum 70 mg/dL (Normal) Range: 65-99 91-Gia-796745:28 CBC (Auto) (78913) Comments: PATIENT NOT FASTINGPERFORMED BY: [address] [id number] Information: [id number] Platelets 224 {x10E3/uL} (Normal) Range: 150-379 RDW 14.8 % (Normal) Range: 12.3-15.4 MCHC 33.0 g/dL (Normal) Range: 31.5-35.7 MCH 31.9 pg (Normal) Range: 26.6-33.0 MCV 97 fL (Normal) Range: 79-97 Hematocrit 39.4 % (Normal) Range: 34.0-46.6 Hemoglobin 13.0 g/dL (Normal) Range: 11.1-15.9 RBC 4.08 {x10E6/uL} (Normal) Range: 3.77-5.28 WBC 8.1 {x10E3/uL} (Normal) Range: 3.4-10.8 07-Vur-379950:51 URINE DAR CULTURE-IDENTIFICATN Comments: PATIENT NOT FASTINGPERFORMED BY: LabCo[address] [id number] Information: [id number] ([id number]) Result 1 MUG (Normal) Comments: Mixed urogenital flora2,000 Colonies/mL Urine Culture,Comprehensive Final report (Normal) 09-Vnn-83366:28 Magnesium Comments: [facility] [address] [place], [address] MG 2.1 mg/dL (Normal) Range: 1.8-2.4 :28 Potassium Comments: [facility] [address] [place], [address] K 5.0 mmol/L (Normal) Range: 3.5-5.1 60-Dkv-468075:12 LIPASE (30704) Comments: Test(s) Potassium, Serum called to [facility] on 11/21/2015 at 03:54 ESTPATIENT NOT FASTINGPERFORMED BY: [facility] [id number] Lipase, Serum 61 U/L (Abnormal) Range: 0-59 73-Pmr-009393:12 AMYLASE (69764) Comments: Test(s) Potassium, Serum called to [facility] on 11/21/2015 at 03:54 ESTPATIENT NOT FASTINGPERFORMED BY: [employer] LabHealthRally [facility] [id number] Amylase, Serum 84 U/L (Normal) Range: 31-124 87-Tvy-882309:20 Urinalysis, Office (68874) UA - LEUKOCYTE ESTERASE Trace (Normal) UA - NITRITE Negative (Normal) URINE UROBILINGN NOREEN TIMED Normal mg/dL (Normal) UA - PROTEIN 100 mg/dL (Normal) UA - PH 6.0 (Normal) Comments: 5.5 UA - BLOOD Negative (Normal) UA - SPECIFIC GRAVITY 1.030 (Abnormal) UA - KETONES 15 mg/dL (Abnormal) UA - BILIRUBIN Moderate (Normal) UA - GLUCOSE Negative (Normal) 08-Tol-358853:12 Metabolic Panel, Basic Comments: Test(s) Potassium, Serum called to [facility] on 11/21/2015 at 03:54 ESTPATIENT NOT FASTINGPERFORMED BY: [employer] [facility] [id number] (54385) Calcium, Serum 8.9 mg/dL (Normal) Range: 8.7-10.3 [...] Comments: Specimen received hemolyzed. Clinical correlation indicated. 15-Khd-484499:12 CBC WITH MANUAL DIFF Comments: Test(s) Potassium, Serum called to Gina Vergara on 11/21/2015 at 03:54 ESTPATIENT NOT FASTINGPERFORMED BY: LabCoCentraState Healthcare SystemMpoeqe9195 [facility] [id number] Information: [id number] (36995) Immature Grans (Abs) 0.0 {x10E3/uL} (Normal) Range: [...] 3.77-5.28 WBC 16.1 {x10E3/uL} (Abnormal) Range: 3.4-10.8 0-Yth-878919:50 Urinalysis, Complete Comments: Order Date: 11/15/15How was Urine Obtained? IMMUNOHEMATOLOGIST TO [facility] [address] [place], [address] HYALINE CAST 5-10 SEEN {/lpf} [...] (Normal) CLARITY Clear (Normal) COLOR Yellow (Normal) 2-Oqx-461999:00 Basic Metabolic Profile (BMP) Comments: [facility] [address]rmbtqh[address] [place], [address] GAP 6 (Normal) Range: 5-15 CO2 24.0 [...] 7-18 GLU 88 mg/dL (Normal) Range: 70-110 6-Smq-137417:00 CBC W/Diff, Automated Comments: [facility] [address] [place], [address] SMEAR COMMENT SCANNED (Normal) Absolute Lymph 1.15 [...] 4.2-5.4 WBC 16.9 K/mm3 (Abnormal) Range: 4.4-11.0 4-Nbh-819444:00 Lipase Comments: [facility] [address] [place], [address] LIPASE 446 U/L (Abnormal) Range: 73-393 6-Ufo-059519:00 Liver Profile Comments: [facility] [address]uisf[address] [place], [address] D BILI 0.06 mg/dL (Normal) Range: 0.00-0.30 T BILI 0.40 mg/dL (Normal) Range: 0.20-1.00 ALT 94 U/L (Abnormal) Range: 12-78 ALK P 66 U/L (Normal) Range: 50-136 AST 76 U/L (Abnormal) Range: 15-37 Comments: Moderate Hemolysis, Result may be falsely increased. GLOB 4.0 g/dL (Abnormal) Range: 2.3-3.5 ALB 3.3 g/dL (Abnormal) Range: 3.4-5.0 T PROT 7.3 g/dL (Normal) Range: 6.4-8.2 4-Pxa-830589:00 Thyroid Stim Hormone (TSH) Comments: [facility] [address] [place], [address] TSH 1.12 {uIU/mL} (Normal) Range: 0.358-3.74 4-Zzv-168666:18 Thyroid Stim Hormone (TSH) Comments: [facility] [address] [place], [address] TSH 0.59 {uIU/mL} (Normal) Range: 0.358-3.74 24-Ynf-926576:18 Pathology Report Comments: PERFORMED BY: [employer] BiopharmaceuticalsCYT [facility] Cyto Ngrna81084 [facility] [id number] BY: INDYL [facility] Qrceizycsdiq2821 [facility] 450Indfranciscan health [place] 4 [id number] BY: LX [facility] Ungqrkg69848 [facility] [id number] Information: [id number] See MATER Comments: Material submitted: .SHAVE CHESTClinician provided ICD-10:D49.2Clinical history: .CHANGE LESION RED ITCH Note (Normal) Diagnosis:SHAVE CHEST:HYPERTROPHIC, INFLAMED ACTINIC KERATOSIS..EIS/09/01/2015 El ectronically signed: .Camila Bright MD, PathologistGross description: .SUBMITTED IN FORMALIN LABELED IRIS CROWLEY IS A FRAGMENT OF FERGUSON/YELLOW TISSUE THAT MEASURES0.6 X 0.5 X 0.4 CM. THE MARGINS ARE INKED YELLOW. THESPECIMEN IS BISECTED AND SUBMITTED IN TOTO.XJW/TMZPathologist provided ICD-10:L57.0CPT .564617 26-Zsv-862792:40 Basic Metabolic Profile (BMP) Comments: 'TROP' Serial specimen #1, #2, #3, or #4: [address] [place] [address] [address]trpm[address] [place], [place], [address] GAP 7 (Normal) Range: 5-15 CO2 27.0 [...] 7-18 GLU 76 mg/dL (Normal) Range: 70-110 44-Crn-364696:40 BNP,B-Type NATRIURETIC PEPTIDE Comments: [facility] [address] [place], [place], [address] B-TYPE HUMBLE PEP 406.4 pg/mL (Abnormal) Range: 0-100 45-Gzj-878343:40 CBC W/Diff, Automated Comments: [facility] [address] [place], [place], [address] Absolute Lymph 1.25 {X10_3/ul} (Normal) Range: 0.83-4.51 [...] 4.2-5.4 WBC 9.2 K/mm3 (Normal) Range: 4.4-11.0 19-Fqg-384660:40 Troponin-I Comments: 'TROP' Serial specimen #1, #2, #3, or #4: [address] [place] [address] [address]cfy[address] [place], [address] TROPONIN-I 0.03 ng/mL (Normal) Comments: TROPONIN-I EXPECTED VALUES <0.05 NEGATIVE 0.06 - 0.59 AT RISK OF [place] > OR = 0.60 SUGGEST [place] 02-Xat-159679:25 Urinalysis, Complete Comments: Order Date: 08/09/15How was Urine Obtained? CLEAN [facility] Rnmourkwxh[address] [place], [address] MUCUS, URINE 0 SEEN {/hpf} [...] (Normal) CLARITY Clear (Normal) COLOR Straw (Normal) 79-Aon-932055:26 Basic Metabolic Profile (BMP) Comments: 'TROP' Serial specimen #1, #2, #3, or #4: 1[facility] [address]comxvey[address] [place], [place], [address] GAP 4 (Abnormal) Range: 5-15 CO2 29.0 [...] 7-18 GLU 66 mg/dL (Abnormal) Range: 70-110 33-Kgf-444067:26 CBC W/Diff, Automated Comments: [facility] [address]wf[address] [place], [place], [address] SMEAR COMMENT SCANNED (Normal) Absolute Lymph 2.04 [...] 4.2-5.4 WBC 18.6 K/mm3 (Abnormal) Range: 4.4-11.0 20-Zcd-211877:26 Prothrombin Time w/INR Comments: [facility] [address] [place], [place], [address] INR 1.1 (Normal) PROTIME 14.0 s (Normal) Range: 11.7-14.9 41-Vwb-056097:26 Troponin-I Comments: 'TROP' Serial specimen #1, #2, #3, or #4: [facility] [address]yimn[address] [place], [address] TROPONIN-I < 0.02 ng/mL (Normal) Comments: TROPONIN-I EXPECTED VALUES <0.05 NEGATIVE 0.06 - 0.59 AT RISK OF [place] > OR = 0.60 SUGGEST [place] 47-Ctq-844972:02 Bilirubin, Direct Comments: ORDERED LIPID,LIVERDR.CLARY ORDERED CBCD,TSH,LIPID,CMP,UACWUniversity Hospitals Portage Medical Center [address] [place], [place], [address] D BILI 0.15 mg/dL (Normal) Range: 0.00-0.30 27-Vug-746334:02 CBC W/Diff, Automated Comments: [facility] Qcgfkvzqkm5669 [facility] [address]. [place], [place], [address] Absolute Lymph 0.99 {X10_3/ul} (Normal) Range: 0.83-4.51 [...] 4.2-5.4 WBC 7.5 K/mm3 (Normal) Range: 4.4-11.0 25-Dhg-940131:02 Comprehensive Metabolic Comments: ORDERED LIPID,LIVERDR.BONEZZI ORDERED CBCD,TSH,LIPID,CMP,UAWUniversity Hospitals Portage Medical Center [address]qlc[address] [place], [place], [address] Profil GAP 8 (Normal) Range: 5-15 CO2 [...] 7-18 GLU 80 mg/dL (Normal) Range: 70-110 80-Hxk-412828:02 Lipid Profile Comments: ORDERED LIPID,LIVERDRCLOVER ORDERED CBCD,TSH,LIPID,CMP,UACPremier Health Atrium Medical Center [address]jbshn[address] [place], [place], [address] VLDL 18 mg/dL (Normal) Range: 5-40 LDL [...] 200-240 mg/dL Borderline >240 mg/dL High Risk 23-Iii-748898:02 Thyroid Stim Hormone Comments: ORDERED LIPID,LIVERDRCLOVER ORDERED CBCD,TSH,LIPID,CMP,UACPremier Health Atrium Medical Center [address]vmuo[address] [place], [place], [address] (TSH) TSH 1.37 {uIU/mL} (Normal) Range: 0.358-3.74 60-Zav-383125:02 Urinalysis, Complete Comments: How was Urine Obtained? CLEAN CATCHPremier Health Atrium Medical Center [address]fi[address] [place], [place], [address] MUCUS, URINE 0 SEEN {/hpf} (Normal) BACTERIA [...] (Normal) CLARITY Clear (Normal) COLOR Straw (Normal) [id number] Basic Metabolic Profile (BMP) Comments: REDRAW. PREVIOUS SPECIMEN REJECTED DUE TOHEMOLYSIS. 06/06/15 1526 Blanca De La Cruz.[facility] [id number] [place], [address] GAP 6 (Normal) Range: 5-15 [...] <126 mg/dLsuggests IMPAIRED HOMEOSTASIS per A.D.A. criteria. [id number]:10 CBC W/Diff, Automated Comments: [facility] [id number] [place], [place], [address] Absolute Lymph 1.33 {X10_3/ul} (Normal) Range: 0.83-4.51 [...] 4.2-5.4 WBC 9.3 K/mm3 (Normal) Range: 4.4-11.0 [id number]:16 Renal function Panel Comments: PATIENT NOT FASTINGPERFORMED BY: [facility] [id number] [facility] [id number] Information: [id number] ([id number]) Albumin, Serum 3.6 g/dL (Normal) Range: 3.5-4.8 [...] (Abnormal) Range: 65-99 Comments: Client Requested Flag [id number] CK-MB Quantitative and Index Comments: Serial Specimen #1, #2 or #3? 2Comments: Should be drawn 2H after initial Troponin obtained'TROP' Serial specimen #1, #2, #3, or #4: 2Test performed at:[facility] [id number] [place], [place] [id number] CPKMB 1.1 ng/mL (Normal) Range: 0.0-5.0 Comments: CK-MB and [place] Interpretation MB Relative Index Non-AMI <or= 5 NA Indeterminate > 5 <or= 4 AMI > 5 > 4 CPK TOTAL 48 U/L (Normal) Range: 26-192 95-Sub-875287:57 Troponin-I Comments: Serial Specimen #1, #2 or #3? 2Comments: Should be drawn 2H after initial Troponin obtained'TROP' Serial specimen #1, #2, #3, or #4: 2Test performed at:[facility] Iq[address]lftg[address] [facility]. [place], [place] [address] TROPONIN-I < 0.02 ng/mL (Normal) Comments: TROPONIN-I EXPECTED VALUES <0.05 NEGATIVE 0.06 - 0.59 AT RISK OF TX > OR = 0.60 SUGGEST TX 05-Qsg-630663:33 Comprehensive Metabolic Profil Comments: Test performed at:[facility] Gglongx[address]az[address]20 [facility] [place] [address] GAP 6 (Normal) Range: 5-15 [...] Comments: Please note revised CREATININE reference range glnkltakz77/22/2015. BUN 35 mg/dL (Abnormal) Range: 7-18 GLU 53 mg/dL (Abnormal) Range: 70-110 69-Nem-517092:33 CRP Comments: Test performed at:[facility] [address] [place] [address] C-REACTIVE PROT < 2.90 mg/L (Normal) Range: 0.0-3.0 Comments: C-Reactive Protein (CRP) provides useful information for thediagnosis, therapy and monitoring of inflammatory processesand associated diseases. For the evaluation of Relative Riskfor Cardiovascular Dise ase, a High Sensitivity CRP (HSCRP)should be ordered. 07-Deh-303443:33 Erythrocyte Sed Rate Comments: Test performed at:[facility] Mvqqncmevi[address] [facility]. [place], [place] [address] SED RATE 7 mm/h (Normal) Range: 0-30 33-Ytc-667757:38 URINE DAR CULTURE-NOREEN COL Comments: PATIENT NOT FASTINGPERFORMED BY: [facility] [id number] [facility] [id number] Information: SRC:[facility] [id number] COUNT ([id number]) Result 1 NG36 (Normal) Comments: No growth in 36 - 48 hours. Urine Culture,Comprehensive Final report (Normal) 67-Acm-114971:07 Urinalysis, Office (30169) UA - LEUKOCYTE ESTERASE Trace (Normal) UA - NITRITE Negative (Normal) URINE UROBILINGN NOREEN TIMED 2 mg/dL (Normal) UA - PROTEIN Negative mg/dL (Normal) UA - PH 5.0 (Normal) UA - BLOOD Negative (Normal) UA - SPECIFIC GRAVITY 1.015 (Normal) UA - KETONES Small mg/dL (Normal) UA - BILIRUBIN Negative (Normal) UA - GLUCOSE Negative (Normal) 08-Feb-20159:39 Pathology Report Comments: PERFORMED BY: [employer] [facility] [place] [facility] Hextu71552 [facility] [id number] BY: General acute hospital Dermatopathology Rzhhcls[address] [id number] Information: [id number] See MATER Comments: Material submitted: .SHAVE BIOPSY [...] HOLOGIC CORRELATIONIS RECOMMENDED.02/13/2015Electronically signed: .Gege Reece MD, [place] topathologistGross description: .RECEIVED IS A CONTAINER LABELED IRIS ARRIAGA AND DESIGNATEDUPPER LESION ON CHEEK. IN FORMALIN IS A FERGUSON TISSUE MEASURING 4 X4 X 1 MM. IT IS INKED PURPLE, BISECTED, AND BOTH HALVES ARESUBMITTED IN A SINGLE CASSETTE.COR/BXSPathologist provided ICD-9:686.9, 682.0CPT .657860, 614819, 482072 19-Gos-707581:29 T4 Total, Thyroxin Comments: PER PT ONLY TSH AND T4 TODAYTest performed at:[facility] [address] [place] [address] T4 THYROXIN 13.2 ug/dL (Normal) Range: 4.8-13.9 15-Pzc-857877:29 Thyroid Stim Hormone (TSH) Comments: PER PT ONLY TSH AND T4 TODAYTest performed at:[facility] [address] [place] [address] TSH 3.74 {uIU/mL} (Normal) Range: 0.358-3.74 28-Kek-228158:17 URINE DAR CULTURE-NOREEN COL Comments: PATIENT NOT FASTINGPERFORMED BY: [facility] Lyreol[address] [place] [id number] Information: SRC: URINE COUNT ([id number]) Result 1 NG36 (Normal) Comments: No growth in 36 - 48 hours. Urine Culture,Comprehensive Final report (Normal) 73-Cdr-506022:48 Urinalysis, Office (21828) UA - LEUKOCYTE ESTERASE Negative (Normal) UA - NITRITE Negative (Normal) URINE UROBILINGN NOREEN TIMED Normal mg/dL (Normal) UA - PROTEIN Negative mg/dL (Normal) UA - PH 6.0 (Normal) Comments: 5.5 UA - BLOOD Negative (Normal) UA - SPECIFIC GRAVITY 1.010 (Normal) UA - KETONES Negative mg/dL (Normal) UA - BILIRUBIN Negative (Normal) UA - GLUCOSE Negative (Normal) 39-Zew-399673:31 Basic Metabolic Profile (BMP) Comments: Test performed at:[facility] Vxdl[address]vgfof[address] [facility] [place] [address] GAP 5 (Normal) Range: 5-15 CO2 27.0 mmol/L (Normal) Range: 21.0-32.0 CL 103 mmol/L (Normal) Range: 98-107 K 4.8 mmol/L (Normal) Range: 3.5-5.1 NA 135 mmol/L (Abnormal) Range: 136-145 CA 8.7 mg/dL (Normal) Range: 8.5-10.1 BUN/CRE 16.4 {RATIO} (Normal) Range: 10-20 CREAT,SERUM 1.1 mg/dL (Abnormal) Range: 0.6-1.0 BUN 18 mg/dL (Normal) Range: 7-18 GLU 89 mg/dL (Normal) Range: 70-110 51-Fxh-404297:31 Lipid Profile Comments: Test performed at:[facility] [address]vsp[address] [facility] [place] [address] VLDL 22 mg/dL (Normal) Range: [...] 200-240 mg/dL Borderline >240 mg/dL High Risk 77-Yvo-611060:31 Liver Profile Comments: Test performed at:[facility] R[address]nerxjsy[address]11 [facility] [place] [address] D BILI 0.10 mg/dL (Normal) Range: 0.00-0.30 T BILI 0.30 mg/dL (Normal) Range: 0.00-4.00 ALT 35 U/L (Normal) Range: 12-78 ALK P 85 U/L (Normal) Range: 50-136 AST 38 U/L (Abnormal) Range: 15-37 GLOB 3.6 g/dL (Normal) Range: 2.7-4.2 ALB 3.7 g/dL (Normal) Range: 3.4-5.0 T PROT 7.3 g/dL (Normal) Range: 6.4-8.2 80-Tzd-631424:31 T4 Total, Thyroxin Comments: Test performed at:[facility] [address] [facility] [place] [address] T4 THYROXIN 14.9 ug/dL (Abnormal) Range: 4.8-13.9 81-Weh-846618:31 Thyroid Stim Hormone (TSH) Comments: Test performed at:[facility] [address] [place] [address] TSH 2.32 {uIU/mL} (Normal) Range: 0.358-3.74 94-Dum-859739:30 CBC W/Diff, Automated Comments: Test performed at:[facility] S[address]nw[address] [facility] [place] [address] Absolute Lymph 1.12 {X10_3/ul} (Normal) [...] 4.2-5.4 WBC 8.8 K/mm3 (Normal) Range: 4.4-11.0 27-Few-361281:30 Urinalysis, Complete Comments: DR HUANG LIVER LIPID TSH T4 ONLYHow was Urine Obtained? CLEAN CATCHTest performed at:[facility] [address] [place], [place] [address] HYALINE CAST 0-5 SEEN {/lpf} (Normal) Range: [...] CLARITY Sl. Cloudy (Normal) COLOR Yellow (Normal) 20-Xlx-698738:09 CBC W/Diff, Automated Comments: Test performed at:[facility] [address] [place] [address] Absolute Lymph 0.85 {X10_3/ul} (Normal) [...] 4.2-5.4 WBC 8.7 K/mm3 (Normal) Range: 4.4-11.0 :09 Comprehensive Metabolic Profil Comments: 'TROP' Serial specimen #1, #2, #3, or #4: 1Test performed at:[facility] Qzdradqohw0779 [facility]. [place], [place] [address] GAP 5 (Normal) Range: 5-15 CO2 27.0 [...] <126 mg/dLsuggests IMPAIRED HOMEOSTASIS per A.D.A. criteria. :09 Troponin-I Comments: 'TROP' Serial specimen #1, #2, #3, or #4: 1Test performed at:[facility] [address]izvb[address] [facility] [place] [address] TROPONIN-I < 0.02 ng/mL (Normal) Comments: TROPONIN-I EXPECTED VALUES <0.05 NEGATIVE 0.06 - 0.59 AT RISK OF TX > OR = 0.60 SUGGEST TX 61-Mvw-623386:21 Rapid Flu (93408 x 2) Influenza A Ag neg (Normal) 3-Uro-078743:05 TSH 6.19 {uIU/mL} (Abnormal) Range: 0.358-3.74 :54 [...] CHOL 151 mg/dL (Normal) Comments: <200 mg/dL Ypcjqhxur549-515 mg/dL Borderline>240 mg/dL High Risk :54 TSH 0.72 {uIU/mL} (Normal) Range: 0.358-3.74 84-Npf-890787:37 Rapid Strep Test, Office (51862) Comments: neg Rapid Strep Test, Office Negative (Normal) 31-Pfv-528863:03 DAR CULTURE-OTHER (90096) Comments: PATIENT NOT FASTINGPERFORMED BY: MISHA [facility] Weizfv5736 [facility] [id number] Information: SRC:THRT [id number] Result 1 RRF (Normal) Comments: Routine respiratory julia Upper Respiratory Culture Final report (Normal) 18-Rqk-501588:12 Urinalysis, Office (73989) UA - BILIRUBIN Negative (Normal) UA - BLOOD Hemolyzed Trace (Normal) UA - GLUCOSE Negative (Normal) UA - KETONES Negative mg/dL (Normal) UA - LEUKOCYTE ESTERASE Trace (Normal) UA - NITRITE Negative (Normal) UA - PH 6.0 (Normal) UA - PROTEIN Negative mg/dL (Normal) UA - SPECIFIC GRAVITY 1.010 (Normal) URINE UROBILINGN NOREEN TIMED 2 mg/dL (Normal) 83-Ota-198239:53 DEXA BONE DENSITY STUDY (HP) Radiology Report [...] Fink M.D.July 29, 2012 at 2:05:06 PM [id number] Signed GP/GP If you are the referring physician and would like to consult with theradiologist who provided this interpretation, please contact Aleida Osei at [phone]. If this radiologist is unavailable, youwil l [...] 07/29/12 1410 Sign by: Ed Fink MD 50-Grl-211519:37 BILAT SCRN DIGITAL & CAD Radiology Report [...] Fink M.D.July 14, 2012 at 1:35:04 PM [id number] Signed GP/GP If you are the referring physician and would like to consult with theradiologist who provided this interpretation, please contact Aleida Osei at [phone]. If this radiologist is unavailable, youwill be directed to another radiologist to assist. If you are a patient with a questi on regarding this report, pleasecontactyour referring physician directly. Professional Interpretation Provided By: [employer], Phone , These documents contain legally prot [...] mg/dL Comments: Order Date: 02/06/12OV Order #: [id number] ID: [id number] Comments: DX = 272.4 JLS [...] 12 hours, may have water.OV Order #: [id number] Order #: [id number] Comments: Reason:Interface Comments: DX = 427.31 [facility] 02/07/12OV Order #: [id number] Comments: DX = 428.0 [facility] 02/07/12 Range: 0.00-0.30 27-Lpg-191251:57 CMP Comments: Order Date: 02/06/12OV Order #: [id number] ID: [id number] Comments: DX = 272.4 [facility] 02/07/12Diagnosis: V58.69 - LONG-TERM USE OF HIGH [...] 12 hours, may have water.OV Order #: [id number] Order #: [id number] Comments: Reason:Interface Comments: DX = 427.31 [facility] 02/07/12OV Order #: [id number] Comments: DX = 428.0 [facility] 02/07/12 GAP 6 (Normal) Range: 5-15 CL [...] 7-18 GLU 92 mg/dL (Normal) Range: 70-110 35-Bgm-415555:57 LIPID Comments: Order Date: 02/06/12OV Order #: [id number] ID: [id number] Comments: DX = 272.4 [facility] 02/07/12Diagnosis: V58.69 - LONG-TERM USE OF HIGH [...] 12 hours, may have water.OV Order #: [id number] Order #: [id number] Comments: Reason:Interface Comments: DX = 427.31 S 02/07/12OV Order #: [id number] Comments: DX = 428.0 [facility] 02/07/12 VLDL 13 mg/dL (Normal) Range: 5-40 [...] 200-240 mg/dL Borderline >240 mg/dL High Risk 57-Uku-800572:57 PHOS 4.0 mg/dL (Normal) Comments: Order Date: 02/06/12OV Order #: [id number] ID: [id number] Comments: DX = 272.4 S [...] 12 hours, may have water.OV Order #: [id number] Order #: [id number] Comments: Reason:Interface Comments: DX = 427.31 [facility] 02/07/12OV Order #: [id number] Comments: DX = 428.0 [facility] 02/07/12 Range: 2.5-4.9 :57 T4 12.6 ug/dL (Normal) Comments: Order Date: 02/06/12OV Order #: [id number] ID: [id number] Comments: DX = 272.4 [facility] 02/07/12Diagnosis: V58.69 - LONG-TERM USE OF HIGH [...] 12 hours, may have water.OV Order #: [id number] Order #: [id number] Comments: Reason:Interface Comments: DX = 427.31 [facility] 02/07/12OV Order #: [id number] Comments: DX = 428.0 [facility] 02/07/12 Range: 4.8-13.9 :57 T4F 1.76 ng/dL (Abnormal) Comments: Order Date: 02/06/12OV Order #: [id number] ID: [id number] Comments: DX = 272.4 [facility] 6/29/12Diagnosis: V58.69 - LONG-TERM USE OF HIGH RISK [...] 12 hours, may have water.OV Order #: [id number] Order #: [id number] Comments: Reason:Interface Comments: DX = 427.31 [facility] 02/07/12OV Order #: [id number] Comments: DX = 428.0 [facility] 02/07/12 Range: 0.76-1.46 67-Ixe-479200:57 TSH 2.47 {uIU/mL} (Normal) Comments: Order Date: 02/06/12OV Order #: [id number] ID: [id number] Comments: DX = 272.4 [facility] 02/07/12Diagnosis: V58.69 - LONG-TERM USE OF HIGH [...] 12 hours, may have water.OV Order #: [id number] Order #: [id number] Comments: Reason:Interface Comments: DX = 427.31 [facility] 02/07/12OV Order #: [id number] Comments: DX = 428.0 [facility] 02/07/12 Range: 0.358-3.74 34-Jdv-037822:47 CBCD Comments: DR. VERGARA ORDERED CMP, RENAL, [...] 4.2-5.4 WBC 6.7 K/mm3 (Normal) Range: 4.4-11.0 5-Hlk-892469:21 CBCD ANC 5.1 3/uL (Normal) Range: 2.0-7.7 [...] 4.2-5.4 WBC 7.8 K/mm3 (Normal) Range: 4.4-11.0 9-Zpc-607880:21 LIPID Comments: ORDERED TSH LIPID T4DRCLOVER ORDERED RENAL [...] VALVE PROLAPSEDiagnosis: 272.4 - HYPERLIPIDEMIAOV Order #: [id number] ID: [id number] Order #: [id number] Comments: Reason:OV Order #: [id number] VLDL 10 mg/dL (Normal) Range: 5-40 LDL [...] 200-240 mg/dL Borderline >240 mg/dL High Risk 6-Dgh-042327:21 RENAL Comments: ORDERED TSH LIPID T4DRCLOVER ORDERED [...] VALVE PROLAPSEDiagnosis: 272.4 - HYPERLIPIDEMIAOV Order #: [id number] ID: [id number] Order #: [id number] Comments: Reason:OV Order #: [id number] CO2 26.0 mmol/L (Normal) Range: 21.0-32.0 CL [...] 7-18 GLU 87 mg/dL (Normal) Range: 70-110 4-Ske-074148:21 T4 15.1 ug/dL (Abnormal) Comments: ORDERED TSH LIPID T4DR.CLARY ORDERED RENAL [...] VALVE PROLAPSEDiagnosis: 272.4 - HYPERLIPIDEMIAOV Order #: [id number] ID: [id number] Order #: [id number] Comments: Reason:OV Order #: [id number] Range: 4.8-13.9 9-Mcu-713977:21 TSH 1.69 {uIU/mL} (Normal) Comments: ORDERED TSH [...] VALVE PROLAPSEDiagnosis: 272.4 - HYPERLIPIDEMIAOV Order #: [id number] ID: [id number] Order #: [id number] Comments: Reason:OV Order #: [id number] Range: 0.358-3.74 :57 BMP GAP 7 (Normal) [...] :57 TSH 2.61 {uIU/mL} (Normal) Range: 0.358-3.74 25-Trt-845054:38 URINE DAR CULTURE-NOREEN COL Comments: PATIENT NOT FASTINGPERFORMED BY: [facility] System[facility]ekgyh2879 [facility] [id number] Information: SRC: URINE COUNT ([id number]) Result 1 NG36 (Normal) Comments: No growth in 36 - 48 hours. Urine Culture,Comprehensive Final report (Normal) :42 Urinalysis, Office (35633) UA - BILIRUBIN Negative (Normal) UA - BLOOD Non Hemolyzed Trace (Normal) UA - GLUCOSE Negative (Normal) UA - KETONES Negative mg/dL (Normal) UA - LEUKOCYTE ESTERASE Trace (Abnormal) UA - NITRITE Negative (Normal) UA - PH 5.0 (Normal) UA - PROTEIN Negative mg/dL (Normal) UA - SPECIFIC GRAVITY 1.005 (Normal) URINE UROBILINGN NOREEN TIMED Normal mg/dL (Normal) 23-Uhw-535003:03 Urinalysis, Office (04736) UA - BILIRUBIN Negative (Normal) UA - BLOOD Hemolyzed Trace (Normal) UA - GLUCOSE Negative (Normal) UA - KETONES Negative mg/dL (Normal) UA - LEUKOCYTE ESTERASE Trace (Normal) UA - NITRITE Negative (Normal) UA - PH 5.0 (Normal) UA - PROTEIN Negative mg/dL (Normal) UA - SPECIFIC GRAVITY 1.010 (Normal) URINE UROBILINGN NOREEN TIMED Normal mg/dL (Normal) 6-Src-075777:00 BMP Comments: GEMMA ORDERED BMP MG T4 [...] 7-18 GLU 88 mg/dL (Normal) Range: 70-110 6-Cej-667386:00 LIPID Comments: GEMMA ORDERED BMP MG T4 [...] 200-240 mg/dL Borderline >240 mg/dL High Risk 4-Bew-846822:00 LIVER Comments: GEMMA ORDERED BMP MG T4 [...] LIPIDBONEZZI ORDERED BMP TSH T4F Range: 0.358-3.74 9-Rpi-514430:46 Anaerobic and Aerobic Comments: PERFORMED BY: [facility]6[address] [facility] [id number] Information: SRC:EB RIGHT ELBOW Culture Result 1 NG36 (Normal) Comments: No growth in 36 - 48 hours. Aerobic Culture Final report (Normal) Result 1 NAAG72 (Normal) Comments: No aerobic or anaerobic growth in 72 hours. Anaerobic Culture Final report (Normal) 9-Ude-489153:39 Urinalysis, Office (91770) UA - BILIRUBIN Negative (Normal) UA - BLOOD Negative (Normal) UA - GLUCOSE Negative (Normal) UA - KETONES Negative mg/dL (Normal) UA - LEUKOCYTE ESTERASE Negative (Normal) UA - NITRITE Negative (Normal) UA - PH 5.0 (Normal) UA - PROTEIN Negative mg/dL (Normal) UA - SPECIFIC GRAVITY 1.015 (Normal) URINE UROBILINGN NOREEN TIMED 2 mg/dL (Normal) 73-Dgn-50568:00 L/S SPINE,MIN 4 VIEWS Radiology Report See [...] 2.3 pg/mL (Normal) Comments: ORDERED T4 T3 TSHDR.BONEZZI ORDERED TSH TPO T3F T4F 2:06 Range: 2.18-3.98 [facility] AB 6676 40 {IU/mL} Comments: ORDERED T4 T3 TSHDR.BONEZZI ORDERED TSH TPO T3F T4F 2:06 (Abnormal) Range: 0-34 Comments: Performed at: [facility] [address] [id number] Director: Bella Taylor MD, Phone: [phone] T3 TOTAL 0.8 ng/mL (Normal) Comments: ORDERED [...] TPO T3F T4F 2:06 (Abnormal) Range: 0.358-3.74 36-Qdz-865489:13 BMP GAP 12 (Normal) Range: 5-15 CO2 [...] 7-18 GLU 95 mg/dL (Normal) Range: 70-110 17-Rbj-653832:13 CBCD ABSOLUTE NEUT 5.1 3/uL (Normal) Range: [...] 4.2-5.4 WBC 7.1 K/mm3 (Normal) Range: 4.4-11.0 80-Kgt-416501:34 Vaginitis/Vaginosis, DNA Probe Comments: PERFORMED BY: [facility] [id number] Information: SRC:CE Gardnerella vaginalis Negative (Normal) Trichomonas [...] Visit for suture removal Concussion : Reviewed State Pilot Letter Indication: Concussion Fall, accidental : Reviewed State Pilot Letter Indication: Fall, accidental Fall, accidental : [...] : Follow up in on Tues with [facility] for ear irrigation Indication: Cerumen impaction Bronchitis [...] respiratory tract infection, unspecified type Planned Observations Ferritin (10149)Indication: Anemia On: :14 Request CBC with auto diff (52992)Indication: Afib On: :14 Request METABOLIC PANEL, COMPREHENSIVE (07631)Indication: Afib On: :14 Request TSH (53377)Indication: Hypothyroidism On: :14 Request TSH (11062)Indication: Memory impairment On: 37-Eet-494417:11 Request AMMONIA (54975)Indication: Memory impairment On: 37-Yoc-977820:11 Request Methymalonic Acid, Serum (24920)Indication: Memory impairment On: 24-Gbv-810692:11 Request VITAMIN B-12 (CYANOCOBALAMIN) (42443)Indication: Memory impairment On: :11 Request FOLIC ACID SERUM (93829)Indication: Memory impairment On: 84-Oos-100718:11 Request METABOLIC PANEL, COMPREHENSIVE (42309)Indication: Coronary artery disease On: 82-Cut-237620:02 Request Comments: fax copy to SHAWN Bonilla, [facility] (56242)Indication: Coronary artery disease On: :02 Request CALCIFIDIOL (36390) VIT D 25Indication: Vitamin D deficiency On: :02 Request Metabolic Panel, Comprehensive (89908)Indication: Hypokalemia On: 12-Nov-2017 Request Comments: fax a copy to Dr. Caitlin May [phone] Huang [phone] MAGNESIUM (56313)Indication: Hypokalemia On: 2-Lnu-831401:03 Request Metabolic Panel, Comprehensive (84099)Indication: Hypokalemia On: 0-Cfg-576312:02 Request Comments: fax a copy to Dr. Caitlin May [phone] Huang [phone] Metabolic Panel, Comprehensive (39101)Indication: Hypokalemia On: 05-Nov-2017 Request Comments: fax a copy to Dr. Caitlin Patterson-[address] Huang [phone] Metabolic Panel, Comprehensive (25873)Indication: Hypokalemia On: 29-Oct-2017 Request Comments: fax a copy to Dr. Caitlin Kc and Dr. Huang [phone] Metabolic Panel, Comprehensive (51582)Indication: Hypokalemia On: 22-Oct-2017 Request Comments: fax a copy to Dr. Caitlin [id number] Huang [phone] Metabolic Panel, Comprehensive (75210)Indication: Hypokalemia On: 15-Oct-2017 Request Comments: fax a copy to Dr. Caitlin [id number] Huang [phone] Metabolic Panel, Comprehensive (64108)Indication: Hypokalemia On: 08-Oct-2017 Request Comments: fax a copy to Dr. Caitlin May [phone] Huang [phone] Metabolic Panel, Comprehensive (69246)Indication: Hypokalemia On: 01-Oct-2017 Request Comments: fax a copy to Dr. Caitlin Patterson-[address] Huang [phone] Metabolic Panel, Comprehensive (53102)Indication: Hypokalemia On: 24-Sep-2017 Request Comments: fax a copy to Dr. Caitlin Kc and Dr. Huang [phone] Renal function Panel (72064)Indication: Renal insufficiency (Renamed from Renal function impairment) On: 09-Mlf-816934:23 Request URIC ACID BLOOD (30567)Indication: Abnormal laboratory test On: 27-Pec-631115:53 Request Metabolic Panel, Comprehensive (90309)Indication: Hypokalemia On: 17-Sep-2017 Request Comments: fax a copy to Dr. Tucker [phone] Huang [phone] Metabolic Panel, Comprehensive (55745)Indication: Hypokalemia On: 10-Sep-2017 Request Comments: fax a copy to Dr. Tucker [phone] Huang [phone] Metabolic Panel, Basic (12799)Indication: Cardiomyopathy On: 17-Bgy-301808:02 Request Comments: now stat and prn CREATININE BLOOD (80071)Indication: Left leg swelling On: 40-Feo-990027:05 Request Metabolic Panel, Basic (94182)Indication: Renal insufficiency (Renamed from Renal function impairment) On: 53-Szb-428792:16 Request Comments: re check in 4 weeks T4, FREE (THYROXINE) (57908)Indication: Hypothyroidism On: 46-Ryv-215535:49 Request CALCIFIDIOL (74028) VIT D 25Indication: Vitamin D deficiency On: 79-Kxm-113348:47 Request TSH (THYROID STIMULATING HORMONE) (23220)Indication: Hypothyroidism On: 13-Gbi-399766:46 Request CREATININE BLOOD (57695)Indication: Abdominal pain, acute On: 19-Pmt-316170:34 Request Metabolic Panel, Basic (45007)Indication: Abdominal pain, acute On: 88-Ffp-91394:31 Request T4, FREE (THYROXINE) (02924)Indication: Hypothyroidism On: 37-Bge-31760:30 Request TSH (22172)Indication: Hypothyroidism On: 04-Mzw-67777:30 Request METABOLIC PANEL, COMPREHENSIVE (45543)Indication: DVT, bilateral lower limbs On: 69-Paq-736015:48 Request PTT (Activated Partial Thromboplastin Time) (25258)Indication: DVT, bilateral lower limbs On: :29 Request PT (Prothrobim Time) (05065)Indication: DVT, bilateral lower limbs On: 65-Bii-483916:29 Request Factor 2 (Prothrombin) Gene Mutation (98089)Indication: DVT, bilateral lower limbs On: :29 Request Factor V Leiden (16131)Indication: DVT, bilateral lower limbs On: :28 Request Antiphospholipid atb (96813)Indication: DVT, bilateral lower limbs On: :28 Request CBC, Platelets & Auto Diff (53177)Indication: Abdominal pain, acute On: 49-Mds-85344:38 Request Comments: coipy to Dr. jessie armendariz stat HEPATIC FUNCTION PANEL (78309)Indication: Abdominal pain, acute On: :37 Request Comments: to stat copy to Dr. natalie armendariz Metabolic Panel, Comprehensive (28443)Indication: Abdominal pain, acute On: :23 Request Comments: all STAT Sed Rate Erythrocyte ([id number])Indication: Abdominal pain, acute On: :19 Request CBC, Platelets & Auto Diff ([id number])Indication: Abdominal pain, acute On: :19 Request Ferritin (20858)Indication: Abnormal RBC indices On: :08 Request CALCIFEDIOL (48198)Indication: Vitamin D deficiency On: :02 Request Folic Acid Serum (81724)Indication: Memory impairment On: :35 Request Methymalonic Acid, Serum (80009)Indication: Memory impairment On: :35 Request Vitamin B-12 (cyanocobalamin) (32404)Indication: Memory impairment On: :35 Request Metabolic Panel, Basic ([id number])Indication: Cardiomyopathy in other diseases classified elsewhere On: 8-Fdk-375097:43 Request Urinalysis, Office ([id number])Indication: Abdominal pain, acute On: 09-Iyj-662705:47 Request URINE DAR CULTURE-IDENTIFICATN ([id number])Indication: Abdominal pain, acute On: 92-Nds-434280:20 Request TSH ([id number])Indication: Hypothyroidism On: 56-Zgn-582628:50 Request Comments: 8 weeks TSH (15700)Indication: Hypothyroidism On: 11-Yuz-389891:58 Request URINALYSIS, W/ MICRO (51856)Indication: Coronary artery disease On: 18-Sma-337172:57 Request METABOLIC PANEL, COMPREHENSIVE (22877)Indication: Coronary artery disease On: :57 Request LIPID PANEL (21098)Indication: Coronary artery disease On: 00-Kqd-397620:57 Request CBC with auto diff ([id number])Indication: Coronary artery disease On: 22-Ebl-493204:57 Request C-REACTIVE PROTEIN ([id number])Indication: Abdominal pain, acute, generalized On: :31 Request Comments: stat CBC W/AUTO DIFF WBC ([id number])Indication: Abdominal pain, acute, generalized On: :31 Request Comments: stat METABOLIC PANEL, COMPREHENSIVE ([id number])Indication: Abdominal pain, acute, generalized On: :31 Request Comments: stat SED RATE ERYTHROCYTE ([id number])Indication: Abdominal pain, acute, generalized On: :26 Request CBC with auto diff ([id number])Indication: Cardiomyopathy On: :59 Request Comments: copy to Dr. valerio URINALYSIS, W/ MICRO ([id number])Indication: Cardiomyopathy On: :58 Request METABOLIC PANEL, COMPREHENSIVE ([id number])Indication: Cardiomyopathy On: :58 Request LIPID PANEL ([id number])Indication: Cardiomyopathy On: :58 Request TSH ([id number])Indication: Hypothyroidism On: :58 Request CBC W/AUTO DIFF WBC ([id number])Indication: Coronary artery disease On: :08 Request Comments: copy to cardiology TSH ([id number])Indication: Hypothyroidism On: :08 Request URINALYSIS, W/ MICRO ([id number])Indication: Coronary artery disease On: :08 Request METABOLIC PANEL, COMPREHENSIVE ([id number])Indication: Coronary artery disease On: :08 Request LIPID PANEL ([id number])Indication: Coronary artery disease On: :08 Request METABOLIC PANEL, COMPREHENSIVE ([id number])Indication: Coronary artery disease On: :15 Request Comments: 05-24 CBC WITH MANUAL DIFF ([id number])Indication: Coronary artery disease On: :15 Request Comments: 05-24 TSH ([id number])Indication: Hypothyroidism On: 31-Qvj-686181:13 Request TSH ([id number])Indication: Hypothyroidism On: 54-Hpi-788268:18 Request CBC WITH MANUAL DIFF ([id number])Indication: Coronary artery disease On: 1-Fmi-566247:11 Request Comments: copy to iman URINALYSIS, W/ MICRO ([id number])Indication: Coronary artery disease On: :11 Request METABOLIC PANEL, COMPREHENSIVE ([id number])Indication: Coronary artery disease On: :11 Request LIPID PANEL ([id number])Indication: Coronary artery disease On: :11 Request TSH ([id number])Indication: Hypothyroidism On: 9-Pmy-293741:11 Request TSH ([id number])Indication: Hypothyroidism On: 30-Har-606408:02 Request METABOLIC PANEL, COMPREHENSIVE ([id number])Indication: Cardiomyopathy On: 80-Mps-395228:02 Request LIPID PANEL ([id number])Indication: Cardiomyopathy On: :02 Request CBC WITH MANUAL DIFF ([id number])Indication: Cardiomyopathy On: 87-Sds-528362:02 Request TSH ([id number])Indication: Hypothyroidism On: 35-Dhh-336697:29 Request Renal function Panel ([id number])Indication: Renal insufficiency (Renamed from Renal function impairment) On: 70-Ave-420573:29 Request CBC (Auto) ([id number])Indication: Cardiomyopathy On: 13-Vxy-732428:40 Request Metabolic Panel, Comprehensive ([id number])Indication: Cardiomyopathy On: 15-Gki-470337:40 Request T4, FREE (THYROXINE) ([id number])Indication: Hypothyroidism On: 16-Uyy-105842:39 Request TSH ([id number])Indication: Hypothyroidism On: 64-Tev-224647:39 Request TSH ([id number])Indication: Hypothyroidism On: 3-Epf-596556:09 Request CBC (Auto) ([id number])Indication: Cardiomyopathy On: 4-Rui-379659:08 Request Renal function Panel ([id number])Indication: Cardiomyopathy On: 8-Vnl-637151:08 Request Metabolic Panel, Basic ([id number])Indication: Cardiomyopathy On: 25-Hsp-907236:03 Request T4, FREE (THYROXINE) ([id number])Indication: Hypothyroidism On: 60-Tuq-719096:03 Request TSH ([id number])Indication: Hypothyroidism On: 71-Iov-085561:03 Request Metabolic Panel, Basic ([id number])Indication: Renal insufficiency (Renamed from Renal function impairment) On: :36 Request T4, FREE (THYROXINE) ([id number])Indication: Hypothyroidism On: :35 Request TSH ([id number])Indication: Hypothyroidism On: :35 Request DAR CULTURE-OTHER ([id number])Indication: Bursitis, olecranon On: :18 Request Comments: olecranon bursa Metabolic Panel, Basic ([id number])Indication: Hyperlipemia On: 19-Gnc-530156:09 Request Metabolic Panel, Basic ([id number])Indication: Gastroenteritis On: :56 Request Comments: stat CBC (Auto) ([id number])Indication: Gastroenteritis On: :56 Request Metabolic Panel, Basic ([id number])Indication: Cardiomyopathy On: :53 Request TSH ([id number])Indication: PVT (paroxysmal ventricular tachycardia) On: :53 Request URINALYSIS ([id number])Indication: Cardiomyopathy On: :53 Request CBC (Auto) ([id number])Indication: Cardiomyopathy On: 29-Hat-965662:53 Request INFCT ANTGN TRICH VAGIN DIRECT PRB ([id number])Indication: Vaginal discharge On: 95-Nfa-554760:31 Request GARDNERELLA VAG, NUCLEIC ACID DIR PROBE ([id number])Indication: Vaginal discharge On: :31 Request ILEANA, NUCLEIC ACID DIRECT PROBE ([id number])Indication: Vaginal discharge On: 41-Lqh-129332:31 Request Planned Encounters Medical; [facility] 1 Month FU - On: 01-Sep-2018 9:00 [facility] Clary TIRADO, Minerva Vergara MD, Minerva Painting Planned Procedures Flu Vaccine (Quadrivalent) On: 01-Jun-2018 Intent 70280Ad: Visit, Nurse Comments: Lot #[id number]-L dltd, IMDose prefilled syringegiven by:Mert Gil LPNVIS reviewed and ABN signed Aerosol Treatment ([id number])By: On: 08-Jan-2018 Intent Clary TIRADO, Minerva Oseguera MD SCREENING DIGITAL On: 23-Sep-2017 Intent TOMOSYNTHESIS OF BREAST ([id number])By: Clary TIRADO, Minerva Oseguera MD Venous Doppler - LowerBy: On: 23-Sep-2017 Intent Minerva Vergara MD Comments: lower left extremity follow up on DVT from 07-27 due october Minerva TIRADO CTA ABDOMEN AND PELVIS On: 28-Jul-2017 Intent INCLUDING IMAGE POSTPROCESSING ([id number])By: Minerva Vergara MD, MD, Dana M VENOUS DOPPLER LOWER On: 28-Jul-2017 Intent EXTREMITY ([id number])By: Clary Comments: upper and lower left legcall results to [phone] Minerva TIRADO MD, Dana M Radiology - [...] FLAT PLATE AND On: 04-Dec-2016 Intent ERECT ([id number])By: Ida Quiñonez DO CT - Chest (IV Contrast On: 04-Dec-2016 Intent Needed)By: Ida Quiñonez DO Comments: pe protocol today CT - Abdomen (Without On: 25-Nov-2016 Intent Contrast)By: Minerva Vergara MD, MD, Dana M Spirometry ([id number])By: On: 31-Oct-2016 Intent Minerva Vergara MD Comments: see scanned document of test done to see results reviewed today with patient Minerva TIRADO Radiology - ChestBy: Clary On: 31-Oct-2016 Intent Minerva TIRADO MD, Dana M Comments: call wet read Radiology - KUBBy: Clary On: 31-Oct-2016 Intent Minerva TIRADO MD, Dana M Comments: upright. call wet read to [phone] Bone Density StudyBy: Clary On: 29-Jul-2016 Intent Minerva TIRADO MD, Dana M MAMMOGRAM, BILATERAL On: 29-Jul-2016 Intent ([id number])By: Minerva Vergara MD, MD, Dana M Flu Vaccine (Quadrivalent) On: 09-May-2016 Intent [id number]: Slarb TOBACCO CHECKOUT CLERK, Meka ELECTROCARDIOGRAM, COMPLETE On: 09-Aug-2015 Intent (ECG) ([id number])By: Memo Franklin CNP Radiology - ChestBy: Clary On: 17-Jul-2015 Intent Minerva TIRADO MD, Dana M Aerosol Treatment ([id number])By: On: 14-Jul-2015 Intent Minerva Vergara MD, MD, Dana M Aerosol Treatment ([id number])By: On: 29-May-2015 Intent Slarb TOBACCO CHECKOUT CLERK, Meka ADMINISTRATION OF INFLUENZA On: 25-Apr-2015 Intent VIRUS VACCINE (G0008)By: Minerva Vergara MD, MD, Dana M Flu Vaccine (Quadrivalent) On: 25-Apr-2015 Intent 71291Dy: Minerva Vergara MD Comments: lot: [id number]: 01/08/16ite/route: L del/IMamt: 0.5mLVIS signed when applicableChedariana, Minerva Metz MD ACUTE ABDOMINAL SERIES On: 27-Mar-2015 Intent (76958)By: Ida Quiñonez DO Comments: stat call wet read INFUSION, NORMAL SALINE On: 04-Nov-2014 Intent SOLUTION , 1000 CC (Special Comments: only 500 ccIV Therapy [id number], 1 inchSite: r acTolerated: well, x 2nd attempt. L ac infiltrated and rpessure applied then covered with gauze and bandageno redness or swelling, no s/s infiltrationMegan, TOBACCO CHECKOUT CLERK Coverage Instructions Apply. See [facility]: 2049) ([id number])By: Minerva Vergara MD, MD, Dana M Radiology - KUBBy: Clary On: 04-Nov-2014 Intent Minerva TIRADO MD, Dana M Comments: do today and call over wet read Radiology - Shoulder - On: 04-Nov-2014 Intent RightBy: Clary TIRADO, Minerva Oseguera MD Wax CurettesBy: Clary TIRADO, On: 15-Sep-2014 Intent Minerva Oseguera MD Ear Irrigation (04534)By: On: 15-Sep-2014 Intent Minerva Vergara MD, MD, Dana M Radiology - Shoulder - On: 15-Sep-2014 Intent RightBy: Minerva Vergara MD, MD, Dana M Radiology - ChestBy: Clary On: 15-Sep-2014 Intent Minerva TIRADO MD, Dana M Comments: by next week if not better with atb Aerosol Treatment ([id number])By: On: 01-Sep-2014 Intent Ciesa PAYROLL REPRESENTATIVE, Saba DEXA SCAN AXIAL SKELETON On: 18-Feb-2014 Intent (06777)By: Clary TIRADO, Minerva Oseguera MD MAMMOGRAM, SCREENING, BOTH On: 18-Feb-2014 Intent BREAST ([id number])By: Clary TIRADO, Minerva Oseguera MD INFUSION, NORMAL SALINE On: 29-Oct-2013 Intent SOLUTION , 250 CC (Special Coverage Instructions Apply. See MCM: 2049) (J7050)By: Tiera Carmen DO IV Needle placement On: 29-Oct-2013 Intent (57031)By: Kermit WEBER, Comments: 3rd attempt successful in R acJeanne TOBACCO CHECKOUT CLERK Tiera IV Infusion (34044)By: Kermit On: 29-Oct-2013 Tiera Wright DO Eprescribed prescriptions On: 29-Oct-2013 Intent (G8553)By: Tiera Carmen DO Aerosol Treatment (26069)By: On: 29-Oct-2013 Tiera Forte DO Solu- Medrol Injection, 125mg On: 29-Oct-2013 Intent (J2930)By: Kermit WEBER, Comments: lot: [id number]: 12/23site/route: RGM/IMamt:2mLVIS signed when applicableChelsИВАН gutiérrez Tiera Eprescribed prescriptions On: 26-Oct-2013 Intent (G8553)By: Clary TIRADO, Minerva Vergara MD, Minerva Painting Wax CurettesBy: Ciesa PAYROLL REPRESENTATIVE, On: 22-Oct-2013 Intent Saba Ear Irrigation ([id number])By: On: 22-Oct-2013 Intent Ciesa ILIR, Saba Eprescribed prescriptions On: 25-Jun-2013 Intent (G8553)By: Jeanne Gil LPN Wax CurettesBy: Clary TIRADO, On: 18-Jun-2013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
--- OUTSIDE RECORDS SUMMARY | 2018-09-06 13:46 | XMS RPT_ITS ---
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 LAB 63882477(L 7-45 Int._Unit/L OINC) Normal ALT 14 LAB 28100997(L 9-39 Int._Unit/L OINC) Normal AST 22 LAB 65552537(L 3.4-5.0 G/DL OINC) Normal Albumin Lvl 4.2 LAB 55242162(L 2.0-4.0 G/DL OINC) Normal Globulin 3.0 LAB 00214523(L 1.1-1.9 ratio OINC) Normal A/G Ratio 1.3 LAB 29175027(L 33-136 Int._Unit/L OINC) Normal Alk Phos 70 LAB 32690173(L .00-.30 mg/dL OINC) Normal Bili Direct .10 LAB 86779359(L OINC) Normal Bili Indirect 0.5 Result Comment: No established ranges available for the Indirect Biliruben. LAB 45932299(LOINC) 0.0-1.2 mg/dL Normal Bili Total 0.6 LAB 24058784(LOINC) 6.4-8.2 gm/dL Normal Total Protein 7.5 Performed By: #### [id number] #### [facility] [employer] [address] [place] [address] LIPID PROFILE Collected: 06/12/2018 Status: F Source: [place] 9:32 AM [facility] REPOSITORY TYPE CODE TESTS RESULT OUT OF RANGE REFERENCE UNITS LAB 09126510(LO 120-200 mg/dL INC) Normal Chol 124 Result Comment: TOTAL CHOLEESTEROL: <200 NORMAL 200 - 239 BORDERLINE HIGH >240 HIGH LAB 87867170(LOINC) mg/dL Normal HDL 49 LAB 35638762(LOINC) 0-130 mg/dL Normal LDL 48 Result Comment: <100 OPTIMAL 100-129 NEAR / ABOVE OPTIMAL 130-159 BORDERLINE HIGH 160-189 HIGH >190 VERY HIGH CALC LDL NOT VALID WHEN TRIGLYCERIDE IS >400 MG/DL LAB 92019258(LOINC) 0-150 mg/dL Normal Trig 133 Result Comment: <150 NORMAL 150-199 BORDERLINE HIGH 200-499 HIGH >500 VERY HIGH LAB 76442926(LOINC) Normal VLDL 27 Performed By: #### [id number] #### [facility] [employer] [address] [place] [address] BMP Collected: 06/12/2018 Status: C Source: [place] 9:31 AM [facility] REPOSITORY TYPE CODE TESTS RESULT OUT OF RANGE REFERENCE UNITS LAB 90297079(L 70-99 mg/dL OINC) High Glucose Lvl 122 LAB 86389050(L 6-23 mg/dL OINC) High BUN 56 LAB 1694360(LO 0.6-1.3 mg/dL INC) High Creatinine 1.6 LAB 88502997(L 5.4-30.0 ratio OINC) High BUN/Creat Ratio 35.0 LAB 73897189(L 8.6-10.3 mg/dL OINC) Calcium Normal Lvl 9.5 LAB 45982020(L 136-145 mEq/L OINC) Sodium Normal Lvl 137 LAB 25702287(L 3.5-5.3 mEq/L OINC) Low Potassium Lvl 3.4 LAB 49733243(L 98-107 mEq/L OINC) Low Chloride 94 LAB 48607689(L 21.0-32.0 mEq/L OINC) CO2 Normal 32.0 LAB 62266367(L 10-20 mEq/L OINC) AGAP Normal 14 Performed By: #### [id number] #### [facility] [employer] [address] [place] [address] EGFR Collected: 06/12/2018 Status: F Source: [place] 9:31 AM [facility] REPOSITORY Order Comment: Order added by Discern Expert. TYPE CODE TESTS RESULT OUT OF RANGE REFERENCE UNITS LAB 82191276(LO mL/min/1.73 INC) m2 Normal eGFR 30 LAB 57078494(LO mL/min/1.73 INC) m2 Normal eGFR AA 37 Performed By: #### [id number] #### [facility] [address] [place] [address] MAGNESIUM Collected: 06/12/2018 Status: F Source: [place] 9:31 AM [facility] REPOSITORY TYPE CODE TESTS RESULT OUT OF REFERENCE UNITS RANGE LAB 17242087(L 1.6-2.4 Int._Unit/L OINC) High Magnesium 2.6 Performed By: #### [id number] #### [facility] [address] [place] [address] PACEMAKER CHECK Observed: 05/01/2018 Status: F Source: [place] 4:34 PM [facility] REPOSITORY [facility] [address] [place], [place] [address] Pacemaker Check Date of Service: 05/01/18 1428 MR#: [id number] Acct: [id number] Name: IRIS ARRIAGA Rep #: [id number] : 1940 From: Kim Pickard Age/Sex: 78/F [place] [facility] Status: Signed Billing Codes ICD Device Billing: ICD Dev Prog Eval, Single 05/01/18 1430 <Electronically signed by Kim Pickard > Date Kim Pickard 05/01/18 1634<Electronically signed by Gurdeep Huang MD> Cosigner Signature: Date (if applicable) Gurdeep Huang MD CC: BMP Collected: 04/29/2018 Status: F Source: [place] 10:46 AM [facility] REPOSITORY TYPE CODE TESTS RESULT OUT OF RANGE REFERENCE UNITS LAB 03357558(L 70-99 mg/dL OINC) Glucose Normal Lvl 80 LAB 37223706(L 7-18 mg/dL OINC) High BUN 41 LAB 1296166(LO 0.6-1.3 mg/dL INC) High Creatinine 1.6 LAB 07623048(L 5.4-30.0 ratio OINC) Normal BUN/Creat Ratio 25.6 LAB 98686609(L 8.4-10.2 mg/dL OINC) Calcium Normal Lvl 9.5 LAB 03402974(L 136-145 mEq/L OINC) Sodium Normal Lvl 138 LAB 60981892(L 3.5-5.1 mEq/L OINC) Normal Potassium Lvl 3.9 LAB 50394320(L 98-107 mEq/L OINC) Low Chloride 95 LAB 39826230(L 24.0-30.0 mEq/L OINC) High CO2 31.1 Performed By: #### [id number] #### [facility] [address] [place] [address] EGFR Collected: 04/29/2018 Status: F Source: [place] 10:46 AM [facility] REPOSITORY Order Comment: Order added by Discern Expert. TYPE CODE TESTS RESULT OUT OF RANGE REFERENCE UNITS LAB 75345267(LO mL/min/1.73 INC) m2 Normal eGFR 31 LAB 78704718(LO mL/min/1.73 INC) m2 Normal eGFR AA 38 Performed By: #### [id number] #### [facility] [address] [place] [address] PULMONARY VISIT REPORT Observed: 03/18/2018 Status: F Source: [place] 8:47 AM [facility] REPOSITORY [facility] [address] [place] [address] OFFICE VISIT Date of Service: 03/18/18 MR#: [id number] Acct: [id number] Name: IRIS ARRIAGA Rep #: [id number] : 1940 Provider: Glenna Anderson Age/Sex: 78/F Location: [facility] Status: Signed Assessment AND Plan Problems 1. 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) Tendinitis, [...] <Electronically signed by Glenna CORADO> Date Glenna HICKSC Cosigner Signature: Date (if applicable) CC: Leanne Martin MD BMP Collected: 02/20/2018 Status: F Source: [place] 10:37 AM [facility] REPOSITORY TYPE CODE TESTS RESULT OUT OF RANGE REFERENCE UNITS LAB 52626417(L 70-99 mg/dL OINC) High Glucose Lvl 139 LAB 73510321(L 8.4-10.2 mg/dL OINC) Calcium Normal Lvl 9.4 LAB 92927804(L 136-145 mEq/L OINC) Sodium Normal Lvl 136 LAB 63496327(L 3.5-5.1 mEq/L OINC) Low Potassium Lvl 3.4 LAB 82141992(L 98-107 mEq/L OINC) Low Chloride 94 LAB 14899416(L 24.0-30.0 mEq/L OINC) High CO2 30.1 LAB 34984028(L 7-18 mg/dL OINC) High BUN 45 LAB 3155428(LO 0.6-1.3 mg/dL INC) High Creatinine 1.6 LAB 72213101(L 5.4-30.0 ratio OINC) Normal BUN/Creat Ratio 28.1 Performed By: #### [id number] #### [facility] [place] [address] EGFR Collected: 02/20/2018 Status: F Source: [place] 10:37 AM [facility] REPOSITORY Order Comment: Order added by Discern Expert. TYPE CODE TESTS RESULT OUT OF RANGE REFERENCE UNITS LAB 48868262(LO mL/min/1.73 INC) m2 Normal eGFR 31 LAB 24229341(LO mL/min/1.73 INC) m2 Normal eGFR AA 38 Performed By: #### [id number] #### [facility] [address] [place] [address] MAGNESIUM Collected: 02/20/2018 Status: F Source: [place] 10:37 AM [facility] REPOSITORY TYPE CODE TESTS RESULT OUT OF RANGE REFERENCE UNITS LAB 29362783(L 1.7-2.8 mg/dL OINC) Normal Magnesium 2.8 Performed By: #### 6494971 #### [facility] [address] [place] [address] PACEMAKER CHECK Observed: 02/02/2018 Status: F Source: [place] 8:00 AM [facility] REPOSITORY [facility] [address] [place] [address] Pacemaker Check Date of Service: 01/28/18 1424 MR#: [id number] Acct: [id number] Name: IRIS ARRIAGA Rep #: [id number] : 1940 From: Kim Pickard Age/Sex: 78/F Location: [facility] Status: Signed Comments Summary Comments: Single Chamber ICD Report: See attached scanned principal statistical programmer Report. Interrogation shows no VT/VF episodes since last check 09/25/17. Left pectoral pocket/incision w/o s/s of infection or erosion. Pt offers no cardiac complaints. Presenting rhythm shows NSR @ 98 bpm. ACADEMIC SERVICES PROFESSIONAL=<0.1%. Lead impedance, sensing and pace/sense threshold remain stable. No parameter changes made. Counters cleared. Next f/u appt scheduled for in 3 mos. Device Device Date Interviewed: 01/28/18 Follow-up Location: in office Interview Reason: routine follow up Sports Equipment Racker: Medtronic Name: Protecta VR Model: [id number] Serial #: [id number] Implant Date: 04/29/13 Year(s): 4 Implant Physician: Dr. Jose Murphy Patient Characteristics Atrial Indication: Paroxysmal atrial fibrillation Ventricular Indication: Nonsustained VT Patient Substrate: Nonischemic cardiomyopathy By: Echo Implant DFT: 18J Underlying rhythm: Sinus rhythm Pacemaker Dependent: No Device Characteristics Device: Single Chamber Type: Implantable defibrillator Remote Follow-Up: No Device Physical Exam Yes Incision well healed Leads Lead #1 Sports Equipment Racker Lead 1: Medtronic Model Lead 1: 5076 Serial# Lead 1: [id number] Date Implanted Lead 1: 09/03/04 Position Lead 1: RV Lead #2 Sports Equipment Racker Lead 2: Medtronic Model Lead 2: 6943 Serial# Lead 2: [id number] Date Implanted Lead 2: 11/18/00 Position Lead [...] palpitations R00.2 6. 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 Syncope R55 02/01/18 1335 <Electronically signed by Kim Pickard > Date Kim Pickard 02/02/18 0800<Electronically signed by Gurdeep Huang MD> Cosigner Signature: Date (if applicable) Gurdeep Huang MD CC: [place] Collected: 12/29/2017 Status: F Source: [place] 9:53 AM [facility] REPOSITORY TYPE CODE TESTS RESULT OUT OF RANGE REFERENCE UNITS LAB 40346965(L 70-99 mg/dL OINC) High Glucose Lvl 126 LAB 80848500(L 8.4-10.2 mg/dL OINC) Calcium Normal Lvl 9.4 LAB 03208935(L 136-145 mEq/L OINC) Sodium Normal Lvl 137 LAB 33070317(L 3.5-5.1 mEq/L OINC) Normal Potassium Lvl 3.9 LAB 32261755(L 98-107 mEq/L OINC) Low Chloride 97 LAB 15832292(L 24.0-30.0 mEq/L OINC) CO2 Normal 28.9 LAB 29136613(L 7-18 mg/dL OINC) High BUN 25 LAB 6558898(LO 0.6-1.3 mg/dL INC) Normal Creatinine 1.3 LAB 13620596(L 5.4-30.0 ratio OINC) Normal BUN/Creat Ratio 19.2 Performed By: #### 7252527 #### [facility] [address] [place] [address] EGFR Collected: 12/29/2017 Status: F Source: [place] 9:53 AM [facility] REPOSITORY Order Comment: Order added by Discern Expert. TYPE CODE TESTS RESULT OUT OF RANGE REFERENCE UNITS LAB 29936887(LO mL/min/1.73 INC) m2 Normal eGFR 40 LAB 41223768(LO mL/min/1.73 INC) m2 Normal eGFR AA 48 Performed By: #### 67987192 #### [facility] [address] [place] [address] CORTISOL LVL Collected: 12/12/2017 Status: F Source: [place] 8:01 AM [facility] REPOSITORY TYPE CODE TESTS RESULT OUT OF RANGE REFERENCE UNITS LAB 42273355(L 6.7-22.6 microgram/d OINC) L Normal Cortisol Lvl 15.7 Performed By: #### [id number] #### [facility] [employer] [address] [place] [address] BMP Collected: 12/12/2017 Status: C Source: [place] 8:01 AM [facility] REPOSITORY TYPE CODE TESTS RESULT OUT OF RANGE REFERENCE UNITS LAB 43333647(L 70-99 mg/dL OINC) High Glucose Lvl 106 LAB 81262777(L 7-18 mg/dL OINC) High BUN 63 LAB 0807314(LO 0.6-1.3 mg/dL INC) High Creatinine 1.6 LAB 79689368(L 5.4-30.0 ratio OINC) High BUN/Creat Ratio 39.4 LAB 06099550(L 8.4-10.2 mg/dL OINC) Normal Calcium Lvl 9.5 LAB 36452702(L 136-145 mEq/L OINC) Low Sodium Lvl 135 LAB 02238376(L 3.5-5.1 mEq/L OINC) Abnormal Potassium Lvl 2.7 Alert Result Comment: Critical Result K: Called to: VOICEMAIL LEFT at: 13:06:45 by:JOSE M Read back by:VOICEMAIL LEFT Left voicemail @ 12:30 and called 4x. No answer. Called before office hours closed. Critical Result K: Called to: [employer] LEFT at: 13:06:45 by:JOSE M Read back by:[employer] LEFT CALLED/RB TO VIRAJ BALBUENA @ DR GLEZ'S OFFICE LAB 49362145(LOINC) 98-107 mEq/L Low Chloride 87 LAB 41266015(LOINC) 24.0-30.0 mEq/L High CO2 35.8 Performed By: #### [id number] #### [facility] [address] [place] [address] EGFR Collected: 12/12/2017 Status: F Source: [place] 8:01 AM [facility] REPOSITORY Order Comment: Order added by Discern Expert. TYPE CODE TESTS RESULT OUT OF RANGE REFERENCE UNITS LAB 93471529(LO mL/min/1.73 INC) m2 Normal eGFR 31 LAB 60775106(LO mL/min/1.73 INC) m2 Normal eGFR AA 38 Performed By: #### [id number] #### [facility] [address] [place] [address] VENOUS DUPLEX LOWER Observed: 10/27/2017 Status: F Source: [place] EXTREMITY 4:14 PM [facility] REPOSITORY [facility] Cardiovascular Services [address] [place] [address] Venous Duplex US, Unilateral 10/27/17 0952 MR#: [id number] Acct: [id number] Name: IRIS ARRIAGA Rep #: [id number] : 1940 77 From: Alejandro Armendariz MD Attending Dr: Leanne Martin MD Status: REG CLI Ordering Dr: Leanne Martin MD Date: 10/27/17 Location: [facility] Sex: F [...] faxed competent and demonstrates normal to Dr. Martin. augmentation. T/P Trunk is compressible. PTV is compressible. LT PerV is compressible. Interpretation Summary Chronic deep venous thrombosis left common femoral and femoral veins. Harvested left great saphenous vein. Normal flow patterns right common femoral vein. Ordering Physician: Leanne Martin Referring Physician: Leanne Martin Performed By: Sheridan Acuna RVT 10/27/17 1614 Date Alejandro Armendariz MD CC: Leanne Martin MD Date Dictated: 10/27/17 0952 Date Transcribed: 10/27/17 1614 Associate Manager: Signed COMPREHENSIVE METABOLIC Collected: 10/27/2017 Status: F Source: [place]N POTTER 10:35 AM [facility] REPOSITORY TYPE CODE TESTS RESULT OUT OF [...] Performed By: #### L500.4050, L501.1400, L501.2300 #### [facility] [address] [place], [address] URIC ACID Collected: 10/27/2017 Status: F Source: [place] 10:35 AM [facility] REPOSITORY TYPE CODE TESTS RESULT OUT OF RANGE REFERENCE UNITS LAB L501.1400 2.6-6.0 mg/dL High URIC 10.9 Result Comment: The drugs N-Acetylcysteine and Metamizole may falsely depress this assay. Performed By: #### L500.4050, L501.1400, L501.2300 #### [facility] [address] [place], [place], [address] PHOSPHORUS Collected: 10/27/2017 Status: F Source: [place] 10:35 AM [facility] REPOSITORY TYPE CODE TESTS RESULT OUT OF RANGE REFERENCE UNITS LAB L501.2300 2.5-4.9 mg/dL Normal PHOS 4.0 Performed By: #### L500.4050, L501.1400, L501.2300 #### [facility] [address] [place], [place], [address] PULMONARY VISIT REPORT Observed: 10/15/2017 Status: F Source: [place] 6:36 PM [facility] REPOSITORY Pulmonary Medicine of [address] [place], [place] [address] OFFICE VISIT Date of Service: 10/15/17 MR#: [id number] Acct: [id number] Name: IRIS ARRIAGA Rep #: [id number] : 1940 Provider: Glenna Anderson Age/Sex: 77/F Location: [facility].PM[facility] Status: Signed Assessment AND Plan 1. URMILA [...] Plan Detail Follow Up 3 Months (MIRNA) [facility] Hospital FU: Chief Complaint: Shortness of breath on exertion [facility] Comments Details: This is a 77 year old F, currently under the care of Dr. Martin of [facility], here to follow [...] body aches. She has not utilized any dbob-tpi-ymykupi medications for her shortness of breath. 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) Tendinitis, [...] 1836 <Electronically signed by Glenna CORADO> Date Glenna CORADO Cosigner Signature: Date (if applicable) CC: Leanne Martin MD SCREENING MAMM (CAD), Observed: 10/14/2017 Status: F Source: [place] 9:19 AM [facility] REPOSITORY [facility] Imaging Services [address] [place] [address] SCREENING MAMM (CAD), BILAT MR#: [id number] Acct: [id number] Name: IRIS ARRIAGA Rep #: [id number] : 1940 F 77 From: Ed Fink MD PCP: Leanne Martin MD Status: REG CLI Study: SCREENING MAMM (CAD), BILAT Date of Exam: 10/14/17 Exam# [id number] Ordering Dr: Leanne Martin MD MAMMOGRAPHY - BILATERAL SCREENING REASON FOR [...] delay biopsy of a clinically suspicious abnormality. EF5572 Electronically Signed: Ed Fink MD at 11:10 EST Tel [phone], Service support , CC: Leanne Martin MD Associate Manager: Signed OFFICE VISIT REPORT Observed: 10/06/2017 Status: F Source: [place] 12:16 PM [facility] [place] [address] OFFICE VISIT Date of Service: 09/25/17 MR#: [id number] Acct: [id number] Patient: IRIS ARRIAGA Rep #: [id number] : 1940 Provider: Kim Pickard Age/Sex: 77/F Location: [facility] Status: Signed Comments Summary Comments: Single Chamber ICD Evaluation: Interrogation shows no VT/VF episodes since 06/17/17. Left pectoral pocket/incision w/o s/s of infection or erosion. Pt offers no cardiac complaints. Presenting rhythm shows NSR @ 92 bpm. ACADEMIC SERVICES PROFESSIONAL=<0.1%. Lead impedance, sensing and pace/sense threshold remain stable. No parameter changes made. Counters cleared. Next f/u appt scheduled for in 3 mos. Device Device Date Interviewed: 09/25/17 Follow-up Location: in office Interview Reason: routine follow up Sports Equipment Racker: Medtronic Name: Protecta VR Model: [id number] Serial #: [id number] Implant Date: 04/29/13 Year(s): 4 Implant Physician: [...] Yes Incision well healed Leads Lead #1 Sports Equipment Racker Lead 1: Medtronic Model Lead 1: 5076 Serial# Lead 1: [id number] Date Implanted Lead 1: 09/03/04 Position Lead 1: RV Additional Details: pace/sense lead Lead #2 Sports Equipment Racker Lead 2: Medtronic Model Lead 2: 6943 Serial# Lead 2: [id number] Date Implanted Lead 2: 11/18/00 Position Lead [...] CARDIOLOGY VISIT Observed: 09/11/2017 Status: F Source: [place] REPORT 5:16 PM [facility] REPOSITORY [facility] [address] [place] [address]. 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 She is due to see her group home worker at [facility] in October of this year. [...] artery disease) I25.10 Coronary Disease-Associated Artery/Lesion type: northwestern shoshone artery Long-term use of high-risk medication Z79.899 [...] artery disease) I25.10 Coronary Disease-Associated Artery/Lesion type: [place]western sh[place]one artery Long-term use of high-risk medication Z79.899 09/11/17 1716 <Electronically signed by Gurdeep Huang MD> Date Gurdeep Huang MD Cosigner Signature: Date (if applicable) CC: Leanne Martin MD ALLERGIES ALLERGIES DATE TYPE / CODE NAME / CODE REACTION SEVERITY SOURCE 08/31/2018 Drug warfarin/F00 Other Unknown [facility] Allergy/4160 9478310([facility] 47056(SNOMED RM) Repository CT) 08/31/2018 Drug torsemide/F0 Rash [place] [facility] Allergy/4160 [id number]([facility] 23888(SNOMED ORM) Repository CT) 08/31/2018 Drug levofloxacin Hives Unknown [facility] Allergy/4160 /[id number]( Hospital 41734(SNOMED RXNORM) Repository CT) ENCOUNTERS ENCOUNTERS ADMIT/DISCHARGE ACCOUNT NUMBER ADMITTING ENCOUNTER LOCATION SOURCE CLASS 09/01/2018 [id number] Ambulatory [facility]: [place] BMS.[facility] Repository 09/01/2018 [id number] Ambulatory [facility] ding:XN4Qapi Repository : KU244Utg: 1 08/31/2018 [id number] Ambulatory BMSBuilding: [place] BMS.CF.[facility] Repository 08/31/2018 [id number] Ambulatory [facility] ding: Repository 08/28/2018 [id number] Ambulatory Building:[facility] Repository 08/24/2018 [id number] Ambulatory BMSBuilding: [place] BMS.[facility] Hospital Repository 08/18/2018 [id number] Ambulatory [facility] ding:LAB Repository 08/18/2018 [id number] Ambulatory BMSBuilding: [place] BMS.CF.[facility] Repository 08/13/2018 [id number] Ambulatory BMSBuilding: [place] BMS.CF.[facility] Repository 08/10/2018/08/10/20 [id number] [place] Hospital ding:WC Repository 07/27/2018 [id number] Ambulatory BMSBuilding: [place] BMS.CF.[facility] Repository 07/27/2018 [id number] Ambulatory [facility] Hospital ding:LAB Repository 07/15/2018/07/15/20 [id number] Ambulatory BMSBuilding: [place] 18 BMS.[facility] Repository 07/14/2018/07/14/20 [id number] Ambulatory [address] ding:ENRoom: Repository AC15 07/08/2018 [id number] Ambulatory [facility] ding:MEDOUTP Repository 06/30/2018 [id number] Ambulatory [facility] ding:US Repository 06/29/2018 [id number] Ambulatory BMSBuilding: [place] BMS.CF.[facility] Repository 06/29/2018 [id number] Ambulatory [facility] ding:[facility] Repository 06/27/2018 [id number] Ambulatory BMSBuilding: [place] [facility] Repository 06/25/2018/06/25/20 [id number] Ambulatory BMSBuilding: [place] 18 BMS.[facility] Repository 06/23/2018/07/17/20 [id number] Riky, Farhat Inpatient [place] 18 Chi Encounter [facility] ding:TCURoom Repository : HWS32Exw: 1 06/23/2018 [id number] Riky, Farhat Ambulatory BMSBuilding: [place] Chi BMS.CF.[facility] Repository 06/23/2018 [id number] Riky, Farhat Ambulatory BMSBuilding: [place] Chi BMS.CF.[facility] Repository 06/23/2018 [id number] Riky, Farhat Ambulatory BMSBuilding: [place] Chi BMS.CF.[facility] Repository 06/23/2018 [id number] Riky, Farhat Ambulatory BMSBuilding: [place] Chi BMS.CF.[facility] Repository 06/19/2018 [id number] Ambulatory BMSBuilding: [place] [facility] Repository 06/18/2018/06/23/20 [id number] White, Inpatient [place] 18 Afshan Encounter [facility] ding:PCURoom Repository : KAH555Ybx: 1 06/18/2018 [id number] [place], Ambulatory BMSBuilding: [place] Afshan BMS.CF.[facility] Repository 06/18/2018 [id number] [place], Ambulatory BMSBuilding: [place] Afshan BMS.[facility] Repository 06/18/2018 [id number] [place], Ambulatory BMSBuilding: [place] Afshan BMS.CF.[facility] Repository 06/18/2018 [id number] White, Ambulatory BMSBuilding: [place] Afshan BMS.CF.[facility] Repository 06/18/2018 [id number] White, Ambulatory BMSBuilding: [place] BMS.[facility] Repository 06/18/2018 [id number] [place], Ambulatory BMSBuilding: [place] BMS.[facility] Repository 06/18/2018 [id number] [place], Ambulatory BMSBuilding: [place] BMS.[facility] Repository 06/18/2018 [id number] [place], Ambulatory BMSBuilding: [place] Afshan BMS..[facility] Repository 06/18/2018 [id number] White, Ambulatory BMSBuilding: [place] BMS.[facility] Repository 06/18/2018 [id number] [place], Ambulatory BMSBuilding: [place] Afshan BMS.[facility] Repository 06/18/2018 [id number] White, Ambulatory BMSBuilding: [place] BMS..[facility] Repository 06/18/2018 [id number] [place], Ambulatory BMSBuilding: [place] BMS..[facility] Repository 06/18/2018 [id number] White, Ambulatory BMSBuilding: [place] BMS.[facility] Repository 06/18/2018 [id number] White, Ambulatory BMSBuilding: [place] BMS.[facility] Repository 06/18/2018 [id number] White, Ambulatory BMSBuilding: [place] BMS.[facility] Repository 06/18/2018 [id number] [place], Ambulatory BMSBuilding: [place] Afshan BMS.[facility] Repository 06/18/2018/06/23/20 [id number] Ambulatory BMSBuilding: [place] 18 [facility] Repository 06/18/2018/06/23/20 [id number] Ambulatory BMSBuilding: [place] 18 [facility] Repository 06/18/2018 [id number] Ambulatory BMSBuilding: [place] BMS.[facility] Repository 06/17/2018/06/17/20 [id number] Ambulatory BMSBuilding: [place] 18 BMS.[facility] Repository 06/15/2018 [id number] Ambulatory BMSBuilding: [place] BMS.[facility] Repository 06/12/2018/06/12/20 [id number] [place] [address] ding:[facility] Repository 06/12/2018/06/12/20 [id number] [place], Ambulatory [address] ding:[facility] Repository 06/12/2018 [id number] Ambulatory [address] [place] [address] Repository 06/12/2018 [id number] Ambulatory [address] [place] [address] Repository 06/01/2018 [id number] [facility] Repository 05/01/2018/05/01/20 [id number] Ambulatory BMSBuilding: [place] 18 BMS.[facility] Repository 04/29/2018/04/29/[id number] ding:[facility] Repository 04/29/2018 [id number] Ambulatory [address] [place] [address] Repository 03/19/2018 [id number] Ambulatory [place] [facility] ding: Repository 03/18/2018/03/18/20 [id number] Ambulatory BMSBuilding: [place] 18 [address] Repository 02/20/2018/02/21/[id number] [place] [address] ding:[facility] Repository 02/20/2018 [id number] Ambulatory [address] [place] [address] Repository 01/28/2018/01/29/20 [id number] Ambulatory BMSBuilding: [place] 18 BMS.[facility] Repository 01/20/2018/01/21/20 [id number] [facility]ulatory [facility]: [place] [facility] 12/29/2017/12/30/[id number] [place] ding:[facility] Repository 12/12/2017/12/13/[id number] [address] ding:[facility] Repository 12/10/[id number] Meka Glez Ambulatory [facility] ding:[facility] Repository 12/02/2017 [id number] Ambulatory Building:[facility] Repository 10/27/2017 [id number] Ambulatory [facility] ding:[facility] Repository 10/27/2017 [id number] Ambulatory BMSBuilding: [place] BMS.CF.[facility] Repository 10/15/2017/10/16/19 [id number] Ambulatory BMSBuilding: [place] [address] Repository 10/14/2017 [id number] Ambulatory [facility] ding:BI Repository 09/25/2017/09/25/19 [id number] Ambulatory BMSBuilding: [place] 18 BMS.[facility] Repository 09/11/2017/09/11/19 [id number] Ambulatory BMSBuilding: [place] 18 BMS.[facility] Repository 09/10/2017 [id number] Ambulatory BMSBuilding: [place] BMS.[facility] Repository PAYERS PAYERS ENCOUNTER GUARANTOR PAYER SUBSCRIBER SOURCE 09/01/2018 RAMÓN Watts Primary IRIS Rivas [id number] E Insurance:KEYUR CHAMBERSB: Community BUSTLE MEDICAREPolicy [id number], Number: Repository [place] [address]Hio: [id number] Date:0796-28-76YM BOX () [address] [place] [phone]: 09/01/2018 Secondary NOT GIVENUNK [place] Insurance:SELF PAY [facility] Number: Effective Repository Date:2018-09-01 09/01/2018 RAMÓN Watts Primary IRIS Rivas [id number] E Insurance:KEYUR HEDRICK TRISHB: Community BUSTLE MEDICAREPolicy [id number], Number: Repository [place] [address]Bkn: [id number] Date:8329-50-49CR BOX () [address] [place] [address]RE: 09/01/2018 Secondary NOT GIVENUNK [place] Insurance:SELF PAY [facility] Number: Effective Repository Date:2018-08-27 08/31/2018 RAMÓN Watts Primary IRIS Tucker [place] [id number] E Insurance:HUMANA GOLD ROESCHDOB: Community BUSTLE MEDICAREPolicy [id number], Number: Repository [place] [address]Huo: [id number] Date:1854-33-78BP BOX () [id number] [place] [address]LM: 08/31/2018 Secondary NOT GIVENUNK [place] Insurance:SELF PAY [facility] Number: Effective Repository Date:2018-08-31 08/31/2018 RAMÓN Watts Primary IRIS Tucker [place] [id number] E Insurance:HUMANA GOLD ROESCHDOB: Community BUSTLE MEDICAREPolicy [id number], Number: Repository [place] [address]Nzv: [id number] Date:1767-13-71ZT BOX () [address] [place] [phone]: 08/31/2018 Secondary NOT GIVENUNK [place] Insurance:SELF PAY [facility] Number: Effective Repository Date:2018-08-11 08/28/2018 IRIS Tucker Primary IRIS S OHIP Practices ROESCHDOB: Insurance:Hum//Medica ROESCHDOB: Repository re Adv PlanPolicy [id number] [facility] Number: [facility] [address] [id number] StreetLoudonvill [place], [place] [address]Zpz: Date:5780-74-26Agbx [place], [place] [address]Fuh: Name:[facility] Box (HP)Tel: (242) [address] [place] [address] ) [phone] () [address]WP: 08/28/2018 Secondary IRIS Tucker OHIP Practices Insurance:Humana ROESCHDOB: Repository [facility] [id number] Number: [facility] Nawaf [id number] [facility] Date:2009-06-[birth year], [place] [address]Ssz: [id number] ~(4 Name:[facility] [address] (HP) [address] [place] [address] [id number]: 08/24/2018 RAMÓN Watts Primary IRIS Christensenoster [id number] E Insurance:HUMANA GOLD ROESCHDOB: Community BUSTLE MEDICAREPolicy [id number], Number: Repository [place] [address]Rxc: [id number] Date:5552-86-04FY BOX () [address] [place] [address]YK: 08/24/2018 Secondary NOT GIVENUNK [place] Insurance:SELF PAY [facility] Number: Effective Repository Date:2018-08-24 08/18/2018 RAMÓN Watts Primary IRIS Tucker [place] [id number] E Insurance:HUMANA GOLD ROESCHDOB: Community BUSTLE MEDICAREPolicy [id number], Number: Repository [place] [address]Sev: [id number] Date:7816-58-95PC BOX () [address] [place] [phone]: 08/18/2018 Secondary NOT GIVENUNK [place] Insurance:SELF PAY [facility] Number: Effective Repository Date:2018-08-18 08/18/2018 RAMÓN Watts Primary IRIS Tucker [place] [id number] E Insurance:HUMANA GOLD ROESCHDOB: Community BUSTLE MEDICAREPolicy [id number] [facility] Medical Center, Number: Repository [place] [address]Ygc: [id number] Date:1484-19-89EI BOX () [address] [place] [phone]: 08/18/2018 Secondary NOT GIVENUNK [place] Insurance:SELF PAY [facility] Number: Effective Repository Date:2018-08-18 08/13/2018 RAMÓN Watts Primary NOT GIVENUNK [place] [id number] Insurance:SELF PAY [facility], Number: Effective Repository [place] [address]Lat: Date:2018-08-13 (PK) 08/10/2018 RAMÓN Watts Primary IRIS Christensenoster [id number] E Insurance:HUMANA GOLD ROESCHDOB: [facility] BUSTLE MEDICAREPolicy [id number] [facility] Medical Center, Number: Repository [place] [address]Tsy: [id number] Date:3915-92-83DJ BOX () [address] [place] [phone]: 08/10/2018 Secondary NOT GIVENUNK [place] Insurance:SELF PAY [facility] Number: Effective Repository Date:2018-07-16 07/27/2018 RAMÓN Watts Primary IRIS Rivas [id number] [address] Insurance:HUMANA GOLD ROESCHDOB: Community BUSTLE MEDICAREPolicy [id number], Number: Repository [place] [address]Con: [id number] Date:2560-96-84YV BOX () [address] [place] [address]HR: 07/27/2018 Secondary NOT GIVENUNK [place] Insurance:SELF PAY [facility] Number: Effective Repository Date:2018-07-27 07/27/2018 RAMÓN Watts Primary IRIS Rivas [id number] E Insurance:HUMANA GOLD ROESCHDOB: Community BUSTLE MEDICAREPolicy [id number], Number: Repository [place] [address]Gvv: [id number] Date:9820-70-48EH BOX () [address] [place] [phone]: 07/27/2018 Secondary NOT GIVENUNK [place] Insurance:SELF PAY [facility] Hospital Number: Effective Repository Date:2018-07-27 07/15/2018 RAMÓN Watts Primary IRIS Rivas [id number] E Insurance:HUMANA FLORIDALMA ROGLENYSCHDOB: Community BUSTLE MEDICAREPoly [id number] [facility] Medical Center, Number: Repository [place] [address]Tok: [id number] Date:5610-36-59KF BOX () [address] [place] [phone]: 07/15/2018 Secondary IRIS Tucker [place] Insurance:STATE FARM ROESCHDOB: [facility] Number: [id number] Hospital [id number] Repository Date: [facility], [place] [address]KS: 07/15/2018 Tertiary NOT GIVENUNK [place] Insurance:SELF PAY [facility] Number: Effective Repository Date:2018-07-15 07/14/2018 RAMÓN Watts Primary IRIS Rivas [id number] E Insurance:HUMANA FLORIDALMA ROGLENYSCHDOB: [facility] BUSTLE MEDICAREPolicy [id number], Number: Repository [place] [address]Mto: [id number] Date:6614-24-87HG BOX () [address] [place] [address]BP: 07/14/2018 Secondary NOT GIVENUNK [place] Insurance:SELF PAY [facility] Hospital Number: Effective Repository Date:2018-07-08 07/08/2018 RAMÓN Watts Primary IRIS Rivas [id number] E Insurance:HUMANA FLORIDALMA ROGLENYSCHDOB: [facility] BUSTLE MEDICAREPolicy [id number] [facility] Medical Center, Number: Repository [place] [address]Kql: [id number] Date:9140-40-78ER BOX () [address] [place] [address]ZL: 07/08/2018 Secondary NOT GIVENUNK [place] Insurance:SELF PAY Community [facility]Policy Hospital Number: Effective Repository Date:2018-07-07 06/30/2018 RAMÓN Watts Primary IRIS Tucker [place] [id number] E Insurance:HUMANA FLORIDALMA ROESCHDOB: Community BUSTLE MEDICAREPolicy [id number] VA Medical Center, Number: Repository [place] [address]Mbq: [id number] Date:5747-19-82OM BOX () [address] [place] [address]EJ: 06/30/2018 Secondary IRIS S [place] Insurance:STATE FARM ROESCHDOB: Community AUTOPolicy Number: [id number] Hospital [id number] Repository Date: [place], [place] [address]OW: 06/30/2018 Tertiary NOT GIVENUNK [place] Insurance:SELF PAY [facility] Number: Effective Repository Date:2018-06-26 06/29/2018 RAMÓN Watts Primary IRIS Christensenoster [id number] E Insurance:STATE FARM ROESCHDOB: Community BUSTLE AUTOPolicy Number: [id number] Shore Medical Center [id number] Repository [place] [address]Rtj: Date: [facility] () [place] [address]XI: 06/29/2018 Secondary IRIS S [place] Insurance:HUMANA FLORIDALMA ROESCHDOB: Community MEDICAREPolicy [id number] Hospital Number: Repository [id number] Date:4752-29-73EJ [address] [place] [address]JT: 06/29/2018 Tertiary NOT GIVENUNK [place] Insurance:SELF PAY [facility] Number: Effective Repository Date:2018-06-29 06/29/2018 RAMÓN Watts Primary IRIS Christensenoster [id number] E Insurance:STATE FARM ROESCHDOB: Community BUSTLE AUTOPolicy Number: [id number] Shore Medical Center [id number] Repository [place] [address]Upl: Date: N [facility] () [place] [address]RT: 06/29/2018 Secondary IRIS S [place] Insurance:HUMANA GOLD ROESCHDOB: Community MEDICAREPolicy [id number] Hospital Number: Repository [id number] Date:5859-79-70QG [address] [place] [address]HG: 06/29/2018 Tertiary NOT GIVENUNK [place] Insurance:SELF PAY [facility] Number: Effective Repository Date:2018-06-17 06/27/2018 RAMÓN Watts Primary IRIS Tucker [place] [id number] E Insurance:STATE FARM ROESCHDOB: Community BUSTLE AUTOPolicy Number: [id number] [facility], [id number] Repository [place] [address]Rht: Date: [facility] () [place] [address]GA: 06/27/2018 Secondary IRIS S [place] Insurance:HUMANA GOLD ROESCHDOB: Community MEDICAREPolicy [id number] Hospital Number: Repository [id number] Date:8647-16-08FT [address] [place] [address]GZ: 06/27/2018 Tertiary NOT GIVENUNK [place] Insurance:SELF PAY [facility] Number: Effective Repository Date:2018-06-27 06/25/2018 RAMÓN Watts Primary IRIS Tucker [place] [id number] E Insurance:HUMANA GOLD ROESCHDOB: Community BUSTLE MEDICAREPolicy [id number] [facility] Medical [facility], Number: [place]ository [place] [address]Gsx: [id number] Date:2665-21-56OX BOX ) [address] [place] [address]KD: 06/25/2018 Secondary IRIS S [place] Insurance:STATE FARM ROESCHDOB: Community AUTOPolicy Number: [id number] Hospital [id number] Repository Date: [facility] [place] [address]RU: 06/25/2018 Tertiary NOT GIVENUNK [place] Insurance:SELF PAY Community INSURANCEPolicy Hospital Number: Effective Repository Date:2018-06-25 06/23/2018 RAMÓN Watts Primary IRIS Christensenoster [id number] E Insurance:STATE FARM ROESCHDOB: Community BUSTLE AUTOPolicy Number: [id number] VA Medical Center, [id number] [place]ository [place] [address]Kns: Date: [facility] () [place] [address]QA: 06/23/2018 Secondary IRIS S [place] Insurance:HUMANA GOLD ROESCHDOB: Community MEDICAREPolicy [id number] Hospital Number: Repository [id number] Date:7478-63-98YK [address] [place] [address]GC: 06/23/2018 Tertiary NOT GIVENUNK [place] Insurance:SELF PAY [facility] Number: Effective Repository Date:2018-06-23 06/23/2018 RAMÓN Watts Primary IRIS Christensenoster [id number] E Insurance:HUMANA GOLD ROESCHDOB: Community BUSTLE MEDICAREPolicy [id number] [facility] Medical Center, Number: Repository [place] [address]Znq: [id number] Date:4489-10-82DH BOX ) [address] [place] [address]CP: 06/23/2018 Secondary IRIS S [place] Insurance:STATE FARM ROESCHDOB: Community AUTOPolicy Number: [id number] Hospital [id number] Repository Date: N [place], [place] [address]IT: 06/23/2018 Tertiary NOT GIVENUNK [place] Insurance:SELF PAY Community INSURANCEPoly Hospital Number: Effective Repository Date:2018-06-23 06/23/2018 RAMÓN Watts Primary IRIS Rivas [id number] E Insurance:STATE FARM ROESCHDOB: Community BUSTLE AUTOPolicy Number: [id number] [facility] Medical Center, [id number] [place]ository [place] [address]Amr: Date: [facility] () [place] [address]IK: 06/23/2018 Secondary IRIS S [place] Insurance:HUMANA GOLD ROESCHDOB: Community MEDICAREPolicy [id number] Hospital Number: Repository [id number] Date:2985-35-79MY [address] [address]MM: 06/23/2018 Tertiary NOT GIVENUNK [place] Insurance:SELF PAY [facility] Number: Effective Repository Date:2018-06-23 06/23/2018 RAMÓN Watts Primary IRIS Rivas [id number] E Insurance:[facility] ROCHDOB: Community BUSTLE AUTOPolicy Number: [id number] VA Medical Center, [id number] Repository [place] [address]Zef: Date: [facility] () [place] [address]IJ: 06/23/2018 Secondary IRIS S [place] Insurance:HUMANA FLORIDALMA ROGLENYSCHDOB: Community MEDICAREPolicy [id number] Hospital Number: Repository [id number] Date:9269-06-61TD [address] [place] [address]KH: 06/23/2018 Tertiary NOT GIVENUNK [place] Insurance:SELF PAY [facility] Number: Effective Repository Date:2018-06-23 06/23/2018 RAMÓN Watts Primary IRIS Rivas [id number] E Insurance:STATE FARM ROESCHDOB: Community BUSTLE AUTOPolicy Number: [id number] VA Medical Center, [id number] [place]ository [place] [address]Dqw: Date: [facility] () [place] [address]XT: 06/23/2018 Secondary IRIS Tucker [place] Insurance:HUMANStefanie HEDRICK ROGLENYSCHDOB: [facility] MEDICAREPolicy [id number] Hospital Number: Repository [id number] Date:8562-81-82VQ [address] [place] [address]AH: 06/23/2018 Tertiary NOT GIVENUNK [place] Insurance:SELF PAY [facility] Number: Effective Repository Date:2018-06-23 06/19/2018 RAMÓN Watts Primary IRIS Rivas [id number] E Insurance:KEYUR ARRIAGADOB: [facility] MEDICAREPolicy [id number] VA Medical Center, Number: Repository [place] [address]Ymd: [id number] Date:9487-18-62OL BOX ) [address] [place] [address]JM: 06/19/2018 Secondary NOT GIVENUNK [place] Insurance:SELF PAY [facility] Number: Effective Repository Date:2018-06-19 06/18/2018 RAMÓN Watts Primary IRIS Rivas [id number] E Insurance:[facility]: [facility] AUTOPolicy Number: [id number] VA Medical Center, [id number] Repository [place] [address]Oup: Date: N [facility], () [place] [address]BX: 06/18/2018 Secondary IRIS S [place] Insurance:KEYUR STRINGERCHDOB: [facility] MEDICAREPolicy [id number] Hospital Number: Repository [id number] Date:4009-59-64BG [address] [place] [address]HV: 06/18/2018 Tertiary NOT GIVENUNK [place] Insurance:SELF PAY [facility] Number: Effective Repository Date:2018-06-18 06/18/2018 RAMÓN Watts Primary IRIS Christensenoster [id number] E Insurance:STATE FARM ROESCHDOB: Community BUSTLE AUTOPolicy Number: [id number] VA Medical Center, [id number] [place]ository [place] [address]Lcu: Date: [facility] () [place] [address]KU: 06/18/2018 Secondary IRIS S [place] Insurance:HUMANA GOLD ROESCHDOB: Community MEDICAREPolicy [id number] Hospital Number: Repository [id number] Date:6511-15-53DC [address] [address]LF: 06/18/2018 Tertiary NOT GIVENUNK [place] Insurance:SELF PAY [facility] Number: Effective Repository Date:2018-06-18 06/18/2018 RAMÓN Watts Primary IRIS Tucker [place] [id number] E Insurance:HUMANA GOLD ROESCHDOB: Community BUSTLE MEDICAREPolicy [id number], Number: Repository [place] [address]Xyt: [id number] Date:5548-84-43CW [address]OX ) [address] [place] [address]AU: 06/18/2018 Secondary IRIS S [place] Insurance:STATE FARM ROESCHDOB: Community AUTOPolicy Number: [id number] Hospital [id number] Repository Date: [place], [place] [address]RH: 06/18/2018 Tertiary NOT GIVENUNK [place] Insurance:SELF PAY [facility] Number: Effective Repository Date:2018-06-18 06/18/2018 RAMÓN Watts Primary IRIS Christensenoster [id number] E Insurance:HUMANA GOLD ROESCHDOB: Community BUSTLE MEDICAREPolicy [id number] VA Medical Center, Number: Repository [place] [address]Qmv: [id number] Date:5729-75-84QH BOX () 23038RSBYWICCH[address] [place] [address]TV: 06/18/2018 Secondary IRIS S [place] Insurance:STATE FARM ROESCHDOB: Community AUTOPolicy Number: [id number] Hospital [id number] Repository Date: [place], [place] [address]OS: 06/18/2018 Tertiary NOT GIVENUNK [place] Insurance:SELF PAY [facility] Number: Effective Repository Date:2018-06-18 06/18/2018 RAMÓN Watts Primary IRIS Tucker [place] [id number] E Insurance:HUMANA GOLD ROESCHDOB: Community BUSTLE MEDICAREPolicy [id number] VA Medical Center, Number: Repository [place] [address]Ejf: [id number] Date:7889-40-41DR BOX () [address] [place] [address]ER: 06/18/2018 Secondary IRIS S [place] Insurance:STATE FARM ROESCHDOB: Community AUTOPolicy Number: [id number] Hospital [id number] Repository Date: [place], [place] [address]YX: 06/18/2018 Tertiary NOT GIVENUNK [place] Insurance:SELF PAY [facility] Number: Effective Repository Date:2018-06-18 06/18/2018 RAMÓN Watts Primary IRIS Tucker [place] [id number] E Insurance:HUMANA GOLD ROESCHDOB: Community BUSTLE MEDICAREPolicy [id number] Medical Center, Number: Repository [place] [address]Hfg: [id number] Date:2239-44-19QS BOX () [address] [place] [address]HN: 06/18/2018 Secondary IRIS S [place] Insurance:STATE FARM ROESCHDOB: Community AUTOPolicy Number: [id number] Hospital [id number] Repository Date: [place], [place] [address]AD: 06/18/2018 Tertiary NOT GIVENUNK [place] Insurance:SELF PAY Community [facility] Number: Effective Repository Date:2018-06-18 06/18/2018 RAMÓN Watts Primary IRIS Christensenoster [id number] E Insurance:HUMANA GOLD ROESCHDOB: Community BUSTLE [facility]ARE[facility] [id number] VA Medical Center, Number: Repository [place] [address]Nxw: [id number] Date:6284-30-24CA BOX () [address] [place] [address]UZ: 06/18/2018 Secondary IRIS S [place] Insurance:STATE FARM [facility] EASTDOB: Community [facility] Number: [id number] Hospital [id number] Repository Date: [place], [place] [address]HL: 06/18/2018 Tertiary NOT GIVENUNK [place] Insurance:SELF PAY Community [facility] Number: Effective Repository Date:2018-06-18 06/18/2018 RAMÓN Watts Primary IRIS Christensenoster [id number] E Insurance:HUMANA GOLD ROESCHDOB: Community BUSTLE [facility]ARE[facility] [id number] [facility] Medical Center, Number: Repository [place] [address]Vro: [id number] Date:6912-69-83VX BOX () [address] [place] [address]JA: 06/18/2018 Secondary IRIS S [place] Insurance:STATE FARM [facility] EASTDOB: Community AUTOPolicy Number: [id number] Hospital [id number] Repository Date: [place], [place] [address]MO: 06/18/2018 Tertiary NOT GIVENUNK [place] Insurance:SELF PAY Community [facility] Number: Effective Repository Date:2018-06-18 06/18/2018 RAMÓN Watts Primary IRIS Tucker [place] [id number] E Insurance:HUMANA GOLD ROESCHDOB: Community BUSTLE MEDICAREPolicy [id number] [facility] Medical Center, Number: Repository [place] [address]Pbh: [id number] Date:3881-06-11CR BOX () [address] [place] [address]ZI: 06/18/2018 Secondary IRIS S [place] Insurance:[facility] ROWILLIAMSON [facility]H HOSPITALDOB: Community AUTOPolicy Number: [id number] Hospital [id number] Repository Date: [place], [place] [address]NV: 06/18/2018 Tertiary NOT GIVENUNK [place] Insurance:SELF PAY [facility] Number: Effective Repository Date:2018-06-18 06/18/2018 RAMÓN Watts Primary IRIS Tucker [place] [id number] E Insurance:HUMANA GOLD ROESCHDOB: [facility] BUSTLE MEDICARE[facility] [id number] VA Medical Center, Number: Repository [place] [address]Oan: [id number] Date:3014-65-53RB BOX () [address] [place] [address]UW: 06/18/2018 Secondary IRIS S [place] Insurance:[facility] Community AUTOPolicy Number: [id number] Hospital [id number] Repository Date: [place], [place] [address]NN: 06/18/2018 Tertiary NOT GIVENUNK [place] Insurance:SELF PAY [facility] Hospital Number: Effective Repository Date:2018-06-18 06/18/2018 RAMÓN Watts Primary IRIS Tucker [place] [id number] E Insurance:HUMANA GOLD ROESCHDOB: Community BUSTLE MEDICAREPolunitypoint health-[facility] [id number] [facility] Medical Center, Number: Repository [place] [address]Giv: [id number] Date:0878-15-81KB B[address] () [id number] [place] [address]BT: 06/18/2018 Secondary IRIS S [place] Insurance:STATE FARM ROESCHDOB: Community AUTOPolicy Number: [id number] Hospital [id number] Repository Date: [place], [place] [address]SA: 06/18/2018 Tertiary NOT GIVENUNK [place] Insurance:SELF PAY [facility] Number: Effective Repository Date:2018-06-18 06/18/2018 RAMÓN Watts Primary IRIS Tucker [place] [id number] E Insurance:HUMANA GOLD ROESCHDOB: Community BUSTLE MEDICAREPolicy [id number], Number: Repository [place] [address]Xqs: [id number] Date:8053-87-48TN BOX () [address] [place] [address]LQ: 06/18/2018 Secondary IRIS S [place] Insurance:STATE FARM ROESCHDOB: Community AUTOPolicy Number: [id number] Hospital [id number] Repository Date: [place], [place] [address]VY: 06/18/2018 Tertiary NOT GIVENUNK [place] Insurance:SELF PAY [facility] Number: Effective Repository Date:2018-06-18 06/18/2018 RAMÓN Watts Primary IRIS Tucker [place] [id number] E Insurance:HUMANA GOLD ROESCHDOB: Community BUSTLE MEDICAREPolicy [id number] Medical Center, Number: Repository [place] [address]Jvd: [id number] Date:6446-22-84EA BOX () [address] [place] [address]SK: 06/18/2018 Secondary IRIS S [place] Insurance:STATE FARM ROESCHDOB: Community AUTOPolicy Number: [id number] Hospital [id number] Repository Date: [place], [place] [address]PH: 06/18/2018 Tertiary NOT GIVENUNK [place] Insurance:SELF PAY Community [facility] Number: Effective Repository Date:2018-06-18 06/18/2018 RAMÓN Watts Primary IRIS Rivas [id number] E Insurance:HUMANA GOLD ROESCHDOB: Community BUSTLE MEDICAREWell[facility] [id number], Number: Repository [place] [address]Mpy: [id number] Date:7023-13-24TU BOX () [address] [place] [address]GI: 06/18/2018 Secondary IRIS S [place] Insurance:STATE FARM ROESCHDOB: Community AUTOPolic Number: [id number] Hospital [id number] Repository Date: [place] [address]NT: 06/18/2018 Tertiary NOT GIVENUNK [place] Insurance:SELF PAY [facility] Number: Effective Repository Date:2018-06-18 06/18/2018 RAMÓN Watts Primary IRIS Rivas [id number] E Insurance:HUMANA GOLD ROESCHDOB: [facility] BUSTLE MEDICAREPolicy [id number] Medical Center, Number: Repository [place] [address]Kuc: [id number] Date:2296-93-31KY BOX () [address]WRPABGONH[address] [place] [address]YI: 06/18/2018 Secondary IRIS S [place] Insurance:STATE FARM ROESCHDOB: Community AUTOPolicy Number: [id number] Hospital [id number] Repository Date: [place], [place] [address]DW: 06/18/2018 Tertiary NOT GIVENUNK [place] Insurance:SELF PAY Community [facility] Number: Effective Repository Date:2018-06-18 06/18/2018 RAMÓN Watts Primary IRIS S [place] [id number] E Insurance:HUMANA GOLD ROESCHDOB: Community BUSTLE MEDICAREPolicy [id number] Center, Number: [place]ository [place] [address]Gbj: [id number] Date:3706-78-22HO BOX () [address] [place] [address]DT: 06/18/2018 Secondary IRIS S [place] Insurance:[facility] ROWILLIAMSON [facility] HOSPITALDOB: Community AUTOPolicy Number: [id number] Hospital [id number] Repository Date: [place], [place] [address]BB: 06/18/2018 Tertiary NOT GIVENUNK [place] Insurance:SELF PAY [facility] Number: Effective Repository Date:2018-06-18 06/18/2018 RAMÓN Watts Primary IRIS Tucker [place] [id number] E Insurance:HUMANA GOLD ROESCHDOB: Community BUSTLE MEDICAREPolicy [id number] Medical Center, Number: Repository [place] [address]Bgr: [id number] Date:3077-66-62SK BOX () [address] [place] [address]NT: 06/18/2018 Secondary IRIS S [place] [facility] AUTOPolicy Number: [id number] Hospital [id number] Repository Date: [place], [place] [address]HI: 06/18/2018 Tertiary NOT GIVENUNK [place] Insurance:SELF PAY [facility] Number: Effective Repository Date:2018-06-18 06/18/2018 RAMÓN Watts Primary IRIS Tucker [place] [id number] E Insurance:HUMANA GOLD ROESCHDOB: Community BUSTLE MEDICAREPolicy [id number], Number: Repository [place] [address]Qic: [id number] Date:9676-25-59MJ BOX () [address] [place] [address]LH: 06/18/2018 Secondary IRIS Rivas Insurance:STATE FARM ROESCHDOB: Community AUTOPolicy Number: [id number] Hospital [id number] Repository Date: [facility], [place] [address]EJ: 06/18/2018 Tertiary NOT GIVENUNK [place] Insurance:SELF PAY [facility] Number: Effective Repository Date:2018-06-18 06/18/2018 RAMÓN Watts Primary IRIS Rivas [id number] E Insurance:HUMANA GOLD ROGLENYSCHDOB: [facility] BUSTLE MEDICARE[facility] [id number] [facility] Medical Center, Number: Repository [place] [address]Idw: [id number] Date:4610-54-72QS BOX () [address] [place] [address]DC: 06/18/2018 Secondary NOT GIVENUNK [place] Insurance:SELF PAY [facility] Hospital Number: Effective Repository Date:2018-06-18 06/18/2018 RAMÓN Watts Primary IRIS Rivas [id number] E Insurance:HUMANA GOLD ROESCHDOB: [facility] BUSTLE MEDICAREWell[facility] [id number] [facility] Medical Center, Number: Repository [place] [address]Ngw: [id number] Date:8375-09-25TX BOX () [address] [place] [address]HQ: 06/18/2018 Secondary NOT GIVENUNK [place] Insurance:SELF PAY [facility] Number: Effective Repository Date:2018-06-18 06/17/2018 RAMÓN Watts Primary IRIS Rivas [id number] E Insurance:HUMANA GOLD ROGLENSYCHDOB: [facility] BUSTLE MEDICAREPolicy [id number] VA Medical Center, Number: Repository [place] [address]Eby: [id number] Date:6208-50-82BF BOX () [address] [place] [address]WP: 06/17/2018 Secondary NOT GIVENUNK [place] Insurance:SELF PAY [facility] Number: Effective Repository Date:2018-06-17 06/15/2018 RAMÓN Rivas [id number] E Insurance:HUMANA GOLD ROESCHDOB: Community BUSTLE MEDICAREPolicy [id number] VA Medical Center, Number: Repository [place] [address]Kgv: [id number] Date:3820-57-76XO BOX (HP) [id number] [place] [address]GN: 06/15/2018 Secondary NOT GIVENUNK [place] Insurance:SELF PAY [facility] Number: Effective Repository Date:2018-06-15 06/12/2018 IRIS Tucker Primary IRIS Cuevas ROESCHDOB: Insurance:HUMANAPolic ROESCHDOB: [facility] E y Number: Effective [id number] System BUSTLE Date:2018-06-[address] [facility] 7070-16-65Zcpd[address] [place] [address] Name:CD:768198[place] [address]Jpp: [address] [place], [place] [address]Tel: [phone]: (800) (HP) [phone] (HP) () 06/12/2018 IRIS Tucker Primary IRIS Cuevas ROESCHDOB: Insurance:HUMANAPolic ROESCHDOB: [facility] E y Number: Effective [id number] System BUSTLE Date:2018-06-12 BUSTLE [facility] 7241-05-19Mtjr[address] [place] [address] Name:CD:[id number] [address]Xbk: [address] [place] [address]Apr: [phone]: (800) (HP) [phone] (HP) (WP) 06/12/2018 IRIS Primary [facility]: Insurance:Humana [facility] HealthB: [facility] E ChoicePolunitypoint [facility] Number: [id number] Repository BUSTLE [id number] E [facility], Date:Plan Name:[place], [place] [id number]: [place] [phone]: (HP) (HP) 06/12/2018 IRIS [facility] Number: [id number] Repository BUSTLE [id number] E [facility], Date:Plan Name:[place], [place] [id number]: [place] [phone]: (AH) (HP) 06/01/2018 RAMÓN A Primary NOT GIVENUNK [place] [id number] E Insurance:SELF PAY [facility], Number: Effective Repository [place] [address]Jbn: Date:2018-01-20 (HP) 05/01/2018 RAÓMN Stefanie Primary IRIS Rivas [id number] E Insurance:HUMANA [facility] Community BUSTLE MEDICAREPolicy [id number] VA Medical Center, Number: Repository [place] [address]Iid: [id number] Date:1908-69-81DZ BOX () [address]MJXGPZPNK, [place] [address]CU: 05/01/2018 Secondary NOT GIVENUNK [place] Insurance:SELF PAY [facility] Number: Effective Repository Date:2018-05-01 04/29/2018 IRIS Primary IRIS S [employer] ROESCHDOB: Insurance:HUMANAPolic ROESCHDOB: [facility] E y Number: Effective [id number] System BUSTLE Date:2018-04-29 [facility] 7136-05-84[place], [place] Name:CD:[id number] [address]Yzf: [address] [place] [address]Gmd: [phone]: (800) (HP) [phone] (HP) () 04/29/2018 IRIS [facility]: Insurance:Hum[employer] Gold ROESCHDOB: [facility] Number: [id number] Repository [facility] [id number] [facility], Date:Plan Name:[place], [place] [id number]: [place] [phone]: (UL) (HP) 03/19/2018 RAMÓN Watts Primary IRIS Rivas [id number] E Insurance:HUMANA [facility]: Community BUSTLE MEDICAREPolicy [id number] VA Medical Center, Number: Repository [place] [address]Mfu: [id number] Date:0521-29-57ZZ BOX () [address] [place] [address]XK: 03/19/2018 Secondary NOT GIVENUNK [place] Insurance:SELF PAY [facility] Hospital Number: Effective Repository Date:2018-03-18 03/18/2018 RAMÓN Watts Primary IRIS Rivas [id number] E Insurance:HUMANA [facility]: Community BUSTLE MEDICAREPolicy [id number] VA Medical Center, Number: Repository [place] [address]Aej: [id number] Date:7668-39-87QE BOX (HP) [address] [place] [address]PY: 03/18/2018 Secondary NOT GIVENUNK [place] Insurance:SELF PAY [facility]: Effective Repository Date:2018-02-16 02/20/2018 IRIS Cuevas [facility]: Insurance:HUMANAPolic ROESCHDOB: [facility] E y Number: Effective [id number] System BUSTLE Date:2018-02-20 BUSTLE [facility], 4721-53-04BxwuRome, [place] [id number]: Name::557360NX BOX [place] [phone]: [address] [place] [address] (HP) [phone]: (355) (HP) [phone] () 02/20/2018 [facility] De[facility]on [facility] Insurance:Humana Gold [facility]ICO[facility]: [facility] Number: [id number] Repository [facility] [id number] [facility], Date:Plan Name:[place], [place] [id number]: [place] [phone]: (QB) (HP) 01/28/2018 RAMÓN Rivas [id number] E Insurance:HUMANA GOLD ROESCHDOB: [facility] BUSTLE MEDICAREPolicy [id number] VA Medical Center, Number: Repository [place] [address]Riz: [id number] Date:9425-66-72TE BOX () [address] [place] [address]DV: 01/28/2018 Secondary NOT GIVENUNK [place] Insurance:SELF PAY [facility] Number: Effective Repository Date:2017-12-18 01/20/2018 RAMÓN Watts Primary IRIS Rivas [id number] E Insurance:HUMANA GOLD ROESCHDOB: Community BUSTLE MEDICAREPolicy [id number], Number: Repository [place] [address]Tix: [id number] [phone] Date:1001-29-35[address] (HP) [address] [place] [id number]: 01/20/2018 Secondary NOT GIVENUNK [place] Insurance:SELF PAY [facility] Number: Effective Repository Date:2018-01-20 12/29/2017 IRIS Tucker Primary IRIS Cuevas ROESCHDOB: Insurance:HUMANAPolic ROESCHDOB: [facility] E y Number: Effective [id number] System BUSTLE Date:2017-12-29 [facility] [id number], [place] [id number]: Name:[id number] [facility] [id number]: [address] [place] [address] (HP) [phone]: (800) (HP) [phone] (WP) 12/12/2017 IRIS Tucker Primary IRIS Cuevas ROESCHDOB: Insurance:HUMANAPolic ROESCHDOB: [facility] E y Number: Effective [id number] System BUSTLE Date:2017-12-12 [facility], [id number], [place] [id number]: Name:CD:[id number] [facility] [id number]: [address] [place] [address] (HP) [phone]: (800) (HP) [phone] (WP) 12/10/2017 IRIS Tucker Primary IRIS Cuevas ROESCHDOB: Insurance:HUMANAPolic ROESCHDOB: [facility] [id number] E y Number: Effective [id number] System BUSTLE Date:2017-12-10 [facility], [id number], [place] [id number]: Name:[id number] BOX [place] [id number]: [address] [place] [address] (HP) [phone]: (128) (HP) [phone] () 12/02/2017 IRIS Tcuker Primary IRIS Tucker [facility] ROESCHDOB: Insurance:[facility] [place] E HUMANA O [facility] [id number] [facility] Number: E [facility], [id number] [facility], Repository [place] [address]Aow: Date:Plan Name:CARE [place] [id number]: (DP) (HP) 10/27/2017 RAMÓN Watts Primary IRIS Rivas [id number] E Insurance:[facility]NA [facility]: Community BUSTLE MEDICAREPolicy [id number] VA Medical Center, Number: Repository [place] [address]Bbj: [id number] [phone] Date:[id number] [address] (HP) [address] [place] [id number]: 10/27/2017 Secondary NOT GIVENUNK [place] Insurance:SELF PAY [facility] Number: Effective Repository Date:2017-09-23 10/27/2017 RAMÓN Watts Primary IRIS Rivas [id number] E Insurance:HUMANA [facility] Community BUSTLE MEDICAREPolicy [id number] VA Medical Center, Number: [place]ository [place] [id number]: [id number] [phone] Date:[id number] [address] (HP) [address] [place] [id number]: 10/27/2017 Secondary NOT GIVENUNK [place] Insurance:SELF PAY [facility]: Effective Repository Date:2017-10-27 10/15/2017 RAMÓN Watts Primary IRIS Christensenoster [id number] E Insurance:HUMANA GOLD ROESCHDOB: Community BUSTLE MEDICAREPolicy [id number] VA Medical Center, Number: Repository [place] [address]Ukq: [id number] [phone] Date:8421-92-75QP [address] (HP) [address] [place] [id number]: 10/15/2017 Secondary NOT GIVENUNK [place] Insurance:SELF PAY [facility] Number: Effective Repository Date:2017-09-24 10/14/2017 RAMÓN Watts Primary IRIS Tucker Evelyn [id number] E Insurance:HUMANA GOLD ROESCHDOB: [facility] BUSTLE [facility]AREKind[facility] [id number] VA Medical Center, Number: Repository [place] [id number]: [id number] [phone] Date:1995-29-71HP [address] -[address] (HP) [address] [place] [id number]: 10/14/2017 Secondary NOT GIVENUNK [place] Insurance:SELF PAY [facility] Number: Effective Repository Date:2017-09-23 09/25/2017 RAMÓN Watts Primary IRIS Tucker Evelyn [id number] E Insurance:HUMANA GOLD ROESCHDOB: Community BUSTLE MEDICAREPolicy [id number] VA Medical Center, Number: Repository [place] [address]Iyp: [id number] [phone] Date:1287-90-36SY [address] -[address] (HP) [address] [place] [id number]: 09/25/2017 Secondary NOT GIVENUNK [place] Insurance:SELF PAY [facility] Number: Effective Repository Date:2017-07-16 09/11/2017 RAMÓN Watts Primary IRIS Tucker [place] [id number] E Insurance:HUMANA GOLD ROESCHDOB: Community [facility]USTLE [facility]ARE[facility] Hospitalicy [id number] VA Medical Center, Number: Repository [place] [id number]: [id number] [phone] Date:5674-51-71PC [address] () [id number] [place] [id number]: 09/11/2017 Secondary NOT GIVENUNK [place] Insurance:SELF PAY [facility] Number: Effective Repository Date:2017-07-19 09/10/2017 RAMÓN Rivas [id number] E Insurance:HUMANA FLORIDALMA CHAMBERSB: Community BUSTLE MEDICAREPolicy [id number] VA Medical Center, Number: Repository [place] [address]Xbx: [id number] [phone] Date:7142-28-11XD [address] () [id number] [place] [phone]: 09/10/2017 Secondary NOT GIVENUNK [place] Insurance:SELF PAY [facility] Number: Effective Repository Date:2017-09-10
== END ==
PROVIDERS: Family Provider Internal Medicine; PCP Internal Medicine; Referring Provider Nurse Practitioner Family; Visit Provider Nurse Practitioner Family
DX: J90 Pleural effusion, not elsewhere classified (principal); S22.32XA Fracture of one rib, left side, initial encounter for closed fracture; V89.2XXA Person injured in unspecified motor-vehicle accident, traffic, initial encounter; Y93.9 Activity, unspecified; Y92.9 Unspecified place or not applicable; Y99.9 Unspecified external cause status
CPT/HCPCS: 76604

== ENCOUNTER → 2018-07-08 10:00 | Outpatient (CLI) | payer MEDICARE, SELFPAY ==
[2018-06-25 14:20] VITALS: BMI 24.7
[2018-07-08] VITALS (7 sets, daily range): BP systolic 83–111; BP diastolic 41–68; PULSE 40–95; RESP 16–20; TEMP 36.1–36.6; O2SAT 94–100; BMI 40.6
[2018-07-08] MEDS: Furosemide 40 MG/4 ML Vial IV (13:17)
--- NOTE | 2018-07-08 16:20 | NURSING ---
REPORT CALLED NURSE ON TCU, TRANSPORTING BACK, BLOOD TRANSFUSION COMPLETE, TOLERATED WELL.
--- OUTSIDE RECORDS SUMMARY | 2018-09-02 17:54 | XMS RPT_ITS | Continuity of Care Document ---
:1940 Author Organization [facility] Address [facility] [address] [place] [address] Phone Care Team Providers Name Role Phone Clary TIRADO, Minerva Painting Unavailable Dr. Les Montez Unavailable Riki TIRADO, Crispin Tucker Unavailable Ирина TIRADO, Clifford Beintes Unavailable Caitlin TIRADO, Dr. Meka Painting Unavailable Kala TIRADO, Alejandro Fuentes Unavailable Jeremie Avendano Unavailable Tiffanie Saha Unavailable ARNO Lawrence Unavailable Unavailable Long Jeanne DE LA ROSA Unavailable Unavailable Unavailable Unavailable Problems Name Dates Details Abnormal cortisol level (R79.89, 790.6) Comments: workign with Dr. tucker slowly vivien. saw last week. had labs. reveiwed with patient. will repeat labs in -18. increased Knovy think related to steriod shots Status: Active Abnormal glucose level (R73.09, 790.29) Comments: prediab. exercise lower sweets. Status: Active Abnormal laboratory test (R89.9, 796.4) Comments: TMAO limit red meat and take fiber. uric acid also and will limit purines and nothave gout so not want meds from water pills rght now no signs and symptoms of gout and not want new meds. wathcing Status: Active Adrenal insufficiency (E27.40, 255.41) Comments: doing better see Dr. caitlin rodríguez. slowly off by 05-28 Status: Active Allergic rhinitis (J30.9, 477.9) Comments: take claritin-memory issue and astepro right now better. cough better. Status: Active Balance disorder (R26.89, 781.99) Comments: more walkig heel to toe think related to spinal stenosis. ? in ccpine. pateitnt would not have surgery or do anything. gae exrecise and handout for neck using cane not falling good now. Status: Active BMI 26.0-26.9,adult (Z68.26, V85.22) Status: Active BMI 27.0-27.9,adult (Z68.27, V85.23) Status: Active Cardiomyopathy (I42.9, 425.4) Comments: with weight gain willincrease diuresiswatch K ? is weight gain related to the water in left leg wtih DVT or overall fluid apkkfaoc43-45 20% cath 18 40% Status: Active Constipation (K59.00, 564.00) Comments: right now good on amitiza at night and miralax in pm will add fiber in evening to help Status: Active Coronary artery disease (I25.10, 414.00) Comments: reviewed with patient specialist's note stablecath -18 10 % only Status: Active Current nonsmoker (Renamed from Current non-smoker) (Z78.9, V49.89) Status: Active Deliveries (Parity) Comments: 2 Status: Active Depression (F32.9, 311) Comments: stable now on the celexa. Status: Active Elevated high sensitivity C-reactive protein (R79.82, 790.95) Comments: doen cancer screening, no rheum issues other than OA no TA signs and symptoms no infection currently will maximum cardiac risks reduction Status: Active Emphysema, interstitial (J98.2, 518.1) Comments: seen on PFTs. CTA done willsend to pulmonary. 6mwt test not under 90% Status: Active Encounter for Medicare annual wellness exam (Z00.00, V70.0) Comments: 05-04-18 AMP 09-23-17 [facility] Physical: dizzy if quick talk about get up slowly with meds on. fall handout given. refuse shingels vaccine. Colonoscopy 2016, prevnar 13 now and then Shingrix in the summer at the local pharmacy, 6CIT=,PHQ-9=5 (mild), mammo and BD 09/2016 Status: Active Fatigue (R53.83, 780.79) Comments: cortisone think may be better. 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 has filter 2009on asa cannot tolerate coumadin had cerebral hemmorhhage at time. 5-[address] segura about this filter.struts out of ivc and told leave alone.at this poitn she has been on the eliquis for DVT severe and unprovoked and second time. we went over risk of of prolonged. we decided will do 2.5 mg bid reduced dose for prevention and if become debilitated andrisk of fallthen will stop. Status: Active Hearing loss, bilateral (H91.93, 389.9) Comments: talkabout going cleartone. now mainly the right ear. right ow not bother her and not want ot go Status: Active Hip osteoarthritis (M16.9, 715.95) Comments: will need hip replacement Status: Active History of CHF (congestive heart failure) (Z86.79, V12.59) Comments: at dry weight 174 right now. she had some lower BP now. so shanae back down on the lasix. will go from 1/2 bid now back to 1/2 in am and 1/4 Status: Active History of stroke (Z86.73, V12.54) Comments: hemorrhagic stroke 2009 in reviewing the reports at that time she was in coumadin and felt may have been an embolic stroke that went to hemmorhhagic Status: Active Hyperlipemia (E78.5, 272.4) Status: Active Hypokalemia (E87.6, 276.8) Comments: recheck Status: Active Hypothyroidism (E03.9, 244.9) Comments: recheck now Status: Active Inflamed seborrheic keratosis (L82.0, 702.11) Comments: one on right shuolder neck area bleeding keep scraping. Status: Active Memory impairment (R41.3, 780.93) Comments: shortterm is issue. off antihistamine. now . doing pretty good per him. check labs recommend fish oil. overall eat well. stress levels good. 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 sarita mims 04-27. aamnda Braga at [facility] research possible percut. procedure MVR 2009 Status: Active Need for prophylactic vaccination and inoculation against influenza (Renamed from Need for immunization against influenza) (Z23, V04.81) Status: Active URMILA on CPAP (G47.33, 327.23) Comments: use mask and now has right size. started 04-27. feel better. Status: Active Osteoarthritis, unspecified osteoarthritis type, unspecified site (M19.90, 715.90) Comments: sopme pain in right hsoulder taking gabpentin told that more for nerve pain. will be on cheratussin. Status: Active Pneumonia, bacterial (J15.9, 482.9) Comments: RLL small infiltrate. slowly better wtill cough and will add mucinex. Status: Active Polyp of colon, adenomatous (D12.6, 211.3) Comments: 01-24 Status: Active Pregnancies () Comments: 2 Status: Active Presence of IVC filter (Z95.828, V45.89) Comments: filter look funny on CT seeing Dr. segura seen 01-[address] anfio show it it tilted and limbs penetrate IVc but not erode into aorta or other structures...to dangerous to try to remove. will watch. Status: Active PVT (paroxysmal ventricular tachycardia) (I47.2, 427.1) Comments: stop amio right now by cardiology willsee how signs and symptoms settle out. Status: Active Renal insufficiency (Renamed from Renal function impairment) (N28.9, 593.9) Comments: stable for years creat 1.0-1.2 with CMP and duiretic so up now 1.5 Status: Active Right shoulder pain (M25.511, 719.41) Comments: complete tear and not surgery candidate. get xray. nsaids not better. did PT with theraband. was doing at home then stop because cold. still painful. seen Dr. saha. had injection. help some. on neurotin and help some. Dr at [facility] not want to do surgery. using accupuncture and massage helping. right now stable. 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 use TCA at times QT good on EKG. had hx of seizures decades ago and not even sure had one so on ly on low dose tca prn. had done 02-24 Status: Active Spinal stenosis of lumbar region (M48.061, 724.02) Comments: was on gabapentin does help. usually in evening. use ibu at times told not to with eliquis. Status: Active Vitamin D deficiency (E55.9, 268.9) Comments: will recheck off vitm D now per novy Status: Active Medications Name Dates Details Amitiza 8 MCG Oral Capsule 1 (one) Capsule at night for 0 days Quantity: 60 {Capsule} Refills: 5 Ordered:04-May-2018 Clary TIRADO, Minerva Arellano MD Start : 04-May-2018 Active Amitriptyline HCl 50 MG Oral Tablet 1 (one) Tablet qd for 0 days Quantity: 90 {Tablet} Refills: 3 Ordered:24-Oct-2017 Clary TIRADO, Minerva Arellano MD Start : 24-Oct-2017 Active ASPIRIN, 81MG (Oral Tablet) 1 qd (81 MG) Active CARVEDILOL, 3.125MG (Oral Tablet) 1 Tablet bid for 0 days Quantity: 180 {Tablet} Refills: 3 Ordered:24-Aug-2015 Clary TIRADO, Minerva Arellano MD Start : 24-Aug-2015 Active CeleXA 20 MG Oral Tablet 1 Tablet daily for 0 days Quantity: 90 {Tablet} Refills: 3 Ordered:03-Mar-2018 Clary TIRADO, Minerva Arellano MD Start : 03-Mar-2018 Active Claritin 10 MG Oral Capsule 1 (one) Capsule Capsule in am for 0 days Quantity: 30 {Capsule} Refills: 0 Ordered:05-Nov-2016 ARON Lawrence Start : 31-Oct-2016 Active Dulera 100-5 MCG/ACT Inhalation Aerosol 1 (one) Aerosol bid for 0 days Quantity: 1 {Each} Refills: 3 Ordered:08-Jan-2018 Minerva Vergara MD, MD, Dana M Start : 08-Jan-2018 Active Eliquis 2.5 MG Oral Tablet 1 Tablet bid for 0 days Quantity: 60 {Tablet} Refills: 4 Ordered:28-Oct-2017 Minerva Vergara MD, MD, Dana M Start : 28-Oct-2017 Active Flonase 50 MCG/ACT Nasal Suspension 2 (two) Puff(s) daily for 30 days Quantity: 1 {[place]} Refills: 5 Ordered:22-Jan-2018 Khang Ida Start : 22-Jan-2018 Active Furosemide 40 MG Oral Tablet 1 (one) Tablet bid for 0 days Quantity: 90 {Tablet} Refills: 3 Ordered:05-Jun-2018 Minerva Vergara MD, MD, Dana M Start : 05-Jun-2018 Active Furosemide 40 MG Oral Tablet 1 (one) Tablet bid for 0 days Quantity: 30 {Tablet} Refills: 4 Ordered:05-Jun-2018 Minerva Vergara MD, MD, Dana M Start : 05-Jun-2018 Active Gabapentin 100 MG Oral Capsule 1 (one) Capsule bid for 0 days Quantity: 180 {Capsule} Refills: 3 Ordered:23-Sep-2017 Minerva Vergara MD, MD, Dana M Start : 23-Sep-2017 Active Comments:one hundred and eighty Hydrocortisone 5 MG Oral Tablet 1 (one) Tablet Friday and Friday for 2 weeks then stop for 0 days Quantity: 60 {Tablet} Refills: 3 Ordered:04-May-2018 Minerva Vergara MD, MD, Dana M Start : 04-May-2018 Active Klor-Con M20 20 MEQ Oral Tablet Extended Release 1 (one) Tablet qd except for Friday and Friday for 0 days Quantity: 30 {Tablet} Refills: 0 Ordered:03-Mar-2018 Minerva Vergara MD, MD, Dana M Start : 03-Mar-2018 Active Magnesium Oxide 400 MG Oral Capsule 1 (one) Capsule qod for 0 days Quantity: 30 {Capsule} Refills: 0 Ordered:27-Aug-2017 Minerva Vergara MD, MD, Dana M Start : 27-Aug-2017 Active MetOLazone 5 MG Oral Tablet 1 (one) Tablet twice weekly as directed for 0 days Quantity: 30 {Tablet} Refills: 3 Ordered:08-Jan-2018 Minerva Vergara MD, MD, Dana M Start : 08-Jan-2018 Active Pravastatin Sodium 40 MG Oral Tablet 1 (one) Tablet qd for 0 days Quantity: 90 {Tablet} Refills: 3 Ordered:03-Mar-2018 Minerva Vergara MD, MD, Dana M Start : 03-Mar-2018 Active ProAir HFA 108 (90 Base) MCG/ACT Inhalation Aerosol Solution 1-2 puff(s) q 6 hr prn for 0 days Quantity: 1 {Inhaler} Refills: 3 Ordered:27-Aug-2017 Minerva Vergara MD, MD, Dana M Start : 27-Aug-2017 Active Synthroid 88 MCG Oral Tablet 1 Tablet daily for 0 days Quantity: 90 {Tablet} Refills: 3 Ordered:03-Mar-2018 Mienrva Vergara MD, MD, Dana M Start : 03-Mar-2018 Active Tessalon Perles 100 MG Oral Capsule 1 (one) Capsule tid prn for cough for 0 days Quantity: 30 {Capsule} Refills: 0 Ordered:22-Jan-2018 Minerva Vergara MD, MD, Dana M Start : 22-Jan-2018 Active Tylenol with Codeine #4 300-60 MG Oral Tablet 1 (one) Tablet every 6 hours prn for 0 days Quantity: 20 {Tablet} Refills: 0 Ordered:28-Jul-2017 Minerva Vergara MD, MD, Dana M Start : 28-Jul-2017 Active Comments:twenty Align Oral Capsule 1 (one) Capsule Capsule daily for 0 days Quantity: 1 {QS} Refills: 3 Ordered:28-Jan-2017 ARON Lawrence Start : 18-Nov-2016 End : 28-Jan-2017 Inactive AMOXICILLIN, 500MG (Oral Capsule) 1 (one) Capsule bid for 0 days Quantity: 20 {Capsule} Refills: 0 Ordered:11-Apr-2015 Jennifer Adames Start : 28-Mar-2015 End : 11-Apr-2015 Inactive ASTEPRO, 0.15% (Nasal Solution) 2 (two) Solution puffs each nostril daily for 0 days Quantity: 1 {Solution} Refills: 0 Ordered:21-Aug-2012 ARON Lawrence Start : 17-Sep-2011 End : 21-Aug-2012 Inactive Augmentin 875-125 MG Oral Tablet 1 Tablet bid for 0 days Quantity: 20 {Tablet} Refills: 0 Ordered:22-Jan-2018 ARON Lawrence Start : 09-Jan-2018 End : 22-Jan-2018 Inactive BACITRACIN, 500UNIT/GM (External Ointment) 1 (one) Ointment Ointment bid for 0 days Quantity: 1 {Tube} Refills: 0 Ordered:15-Sep-2014 AORN Lawrence Start : 18-Feb-2014 End : 15-Sep-2014 Inactive BACTRIM DS, 800-160MG (Oral Tablet) 1 Tablet bid for 7 days Quantity: 14 {Tablet} Refills: 0 Ordered:20-Nov-2015 Sneha Vasquez Start : 20-Nov-2015 End : 27-Nov-2015 Inactive BENADRYL ALLERGY, 25MG (Oral Tablet) 1 (one) Tablet Tablet qd for 0 days Quantity: 30 {Tablet} Refills: 3 Ordered:15-Sep-2014 ARON Lawrence Start : 26-Oct-2013 End : 15-Sep-2014 Inactive BENZONATATE, 200MG (Oral Capsule) 1 (one) Capsule tid prn for 0 days Quantity: 30 {Capsule} Refills: 0 Ordered:18-Nov-2013 ARON Lawrence Start : 29-Oct-2013 End : 18-Nov-2013 Inactive CEFDINIR, 300MG (Oral Capsule) 1 (one) Capsule Capsule bid for 0 days Quantity: 20 {Capsule} Refills: 0 Ordered:18-Dec-2015 Jennifer Adames Start : 06-Dec-2015 End : 18-Dec-2015 Inactive CEFTIN, 500MG (Oral Tablet) 1 (one) Tablet Tablet bid for 0 days Quantity: 20 {Tablet} Refills: 0 Ordered:14-Jul-2015 ARON Lawrence Start : 06-Jun-2015 End : 14-Jul-2015 Inactive Cheratussin AC 100-10 MG/5ML Oral Solution 5-10 Milliliter q8hrs prn for 0 days Quantity: 120 {Milliliter} Refills: 0 Ordered:23-Sep-2017 ARON Lawrence Start : 27-Aug-2017 End : 23-Sep-2017 Inactive Comments:one hundred and twenty CHERATUSSIN AC, 100-10MG/5ML (Oral Syrup) 1 Teaspoon(s) qhs prn for cough for 0 days Quantity: 6 {Ounce} Refills: 0 Ordered:18-Nov-2013 ARON Lawrence Start : 22-Oct-2013 End : 18-Nov-2013 Inactive Comments:six ounces COLY-MYCIN S, 3.3-3-10-0.5MG/ML (Otic Suspension) 1 Suspension 3 gtts right ear 4 times a day for 1 week for 0 days Quantity: 1 {Suspension} Refills: 0 Ordered:03-Dec-2012 Jeanne Gil LPN Start : 03-Dec-2012 End : 03-Dec-2012 Inactive CORTISPORIN-TC, 3.3-3-10-0.5MG/ML (Otic Suspension) uad Suspension to affected ear(s) prn for 0 days Quantity: 1 {Suspension} Refills: 0 Ordered:15-Feb-2013 Nova Posadas LPN Start : 03-Dec-2012 End : 15-Feb-2013 Inactive DOXYCYCLINE HYCLATE, 100MG (Oral Capsule) 1 Capsule bid for 0 days Quantity: 20 {Capsule} Refills: 0 Ordered:18-Nov-2013 ARON Lawrence Start : 26-Oct-2013 End : 18-Nov-2013 Inactive DOXYCYCLINE MONOHYDRATE, 100MG (Oral Tablet) 1 Tablet bid for 0 days Quantity: 20 {Tablet} Refills: 0 Ordered:03-Sep-2013 ARON Lawrence Start : 07-Apr-2013 End : 03-Sep-2013 Inactive ESTRADIOL, 0.5MG (Oral Tablet) 1 qd for 0 days Refills: 0 Ordered:24-Dec-2010 ARON Lawrence End : 24-Dec-2010 Inactive FUROSEMIDE, 10MG/ML (Oral Solution) 1 (one) Solution daily for 30 days Quantity: 30 {Tablet} Refills: 3 Ordered:24-Aug-2015 ARON Lawrence Start : 02-Aug-2015 End : 24-Aug-2015 Inactive KEFLEX, 500MG (Oral Capsule) 1 Capsule tid for 7 days Quantity: 21 {Capsule} Refills: 0 Ordered:18-Feb-2011 Minerva Vergara MD, MD, Dana M Start : 18-Feb-2011 End : 25-Feb-2011 Inactive LEVAQUIN, 500MG (Oral Tablet) 1 (one) Tablet Tablet daily for 10 days Refills: 0 Ordered:26-Oct-2013 Long RJJeanne Start : 22-Oct-2013 End : 01-Nov-2013 Inactive Linzess 145 MCG Oral Capsule 1 (one) Capsule Capsule qd for 0 days Quantity: 30 {Capsule} Refills: 0 Ordered:31-Dec-2017 Minerva Vergara MD, MD, Dana M Start : 03-Jan-2017 End : 31-Dec-2017 Inactive LISINOPRIL, 2.5MG (Oral Tablet) 1 Tablet daily for 0 days Quantity: 30 {Tablet} Refills: 0 Ordered:21-Nov-2015 Minerva Vergara MD, MD, Dana M Start : 21-Nov-2015 End : 21-Nov-2015 Inactive Comments:?cause pancreatitis MACROBID, 100MG (Oral Capsule) 1 Capsule bid for 0 days Quantity: 20 {Capsule} Refills: 0 Ordered:15-Aug-2011 ARON Lawrence Start : 29-Jul-2011 End : 15-Aug-2011 Inactive MEDROL (YESY), 4MG (Oral Tablet) 1 (one) Tablet uad for 0 days Quantity: 1 {Packet} Refills: 0 Ordered:25-Apr-2015 Jennifer Adames Start : 11-Apr-2015 End : 25-Apr-2015 Inactive NASONEX, 50MCG/ACT (Nasal Suspension) 1 Suspension daily for 0 days Quantity: 1 {Suspension} Refills: 0 Ordered:29-Jul-2011 ARON Lawrence Start : 19-Apr-2011 End : 29-Jul-2011 Inactive NEXIUM, 40MG (Oral Capsule Delayed Release) [address] daily for 0 days Quantity: 14 {Capsule_DR} Refills: 0 Ordered:29-Jul-2011 ARON Lawrence Start : 10-Jan-2011 End : 29-Jul-2011 Inactive Comments:not have samples so will get prilosec Omeprazole 40 MG Oral Capsule Delayed Release 1 (one) Capsule DR Capsule DR in am for 0 days Quantity: 30 {Capsule} Refills: 4 Ordered:28-Jan-2017 ARON Lawrence Start : 16-Dec-2016 End : 28-Jan-2017 Inactive ONDANSETRON HCL, 8MG (Oral Tablet) 1 (one) Tablet q 8 hrs prn for 30 days Quantity: 20 {Tablet} Refills: 0 Ordered:14-Jun-2015 Slarb SHUTDOWN COORDINATORMeka Start : 14-Jun-2015 End : 14-Jul-2015 Inactive PERCOCET, 5-325MG (Oral Tablet) 1 (one) Tablet Tablet every 6 hours prn for 0 days Quantity: 30 {Tablet} Refills: 0 Ordered:14-Jul-2015 ARON Lawrence Start : 11-Apr-2015 End : 14-Jul-2015 Inactive Comments:thirty Potassium Chloride ER 10 MEQ Oral Capsule Extended Release 1 (one) Capsule ER Capsule ER bid for 0 days Quantity: 60 {Capsule} Refills: 0 Ordered:06-May-2017 Jennifer Adames Start : 28-Jan-2017 End : 06-May-2017 Inactive PREDNISONE, 10MG (Oral Tablet) 3 (three) Tablet once daily, then 2 daily, then 1 daily for 0 days Refills: 0 Ordered:28-Apr-2012 ARON Lawrence Start : 08-Oct-2011 End : 28-Apr-2012 Inactive Comments:with food PREVACID 24HR, 15MG (Oral Capsule Delayed Release) [address] daily for 0 days Quantity: 30 Refills: 0 Ordered:28-Apr-2012 ARON Lawrence Start : 08-Oct-2011 End : 28-Apr-2012 Inactive PROMETHAZINE HCL, 25MG (Oral Tablet) 1 Tablet every 8 hours prn for 0 days Quantity: 10 {Tablet} Refills: 0 Ordered:03-Sep-2010 ARON Lawrence Start : 28-Jun-2010 End : 03-Sep-2010 Inactive PROVENTIL HFA, 108 (90 Base)MCG/ACT (Inhalation Aerosol Solution) 1 Aerosol Soln 1-2 puffs every 6hours prn for 0 days Quantity: 1 {Aerosol_Soln} Refills: 0 Ordered:21-Aug-2012 ARON Lawrence Start : 04-Oct-2011 End : 21-Aug-2012 Inactive TAMIFLU, 75MG (Oral Capsule) 1 (one) Capsule bid for 5 days Quantity: 10 {Capsule} Refills: 0 Ordered:01-Sep-2014 Memo Franklin CNP Start : 01-Sep-2014 End : 06-Sep-2014 Inactive TOPICORT, 0.25% (External Cream) 1 Cream bid for 0 days Quantity: 1 {Cream} Refills: 0 Ordered:19-Apr-2011 ARON Lawrence Start : 16-Apr-2011 End : 19-Apr-2011 Inactive TYLENOL WITH CODEINE #3, 300-30MG (Oral Tablet) 1-2 Tablet every 6 hours prn for 0 days Quantity: 60 {Tablet} Refills: 0 Ordered:10-Jan-2011 ARON Lawrence Start : 03-Sep-2010 End : 10-Jan-2011 Inactive TYLENOL, 325MG (Oral Tablet) 1 Tablet q6hrs for 10 days Refills: 0 Ordered:22-Jul-2013 Memo Franklin CNP Start : 25-Jun-2013 End : 05-Jul-2013 Inactive ULTRAVATE, 0.05% (External Cream) apply to affected area Cream Cream bid for 0 days Quantity: 15 {Gram} Refills: 0 Ordered:15-Sep-2014 ARON Lawrence Start : 13-Apr-2014 End : 15-Sep-2014 Inactive VICODIN, 5-300MG (Oral Tablet) 1 (one) Tablet Tablet qhsprn for pain for 0 days Quantity: 20 {Tablet} Refills: 0 Ordered:20-Nov-2015 ARON Lawrence Start : 02-Aug-2015 End : 20-Nov-2015 Inactive Vitamin D3 2000 UNIT Oral Capsule 1 (one) Capsule Capsule in am for 0 days Quantity: 30 {Capsule} Refills: 0 Ordered:04-May-2018 ARON Lawrence Start : 29-Jul-2016 End : 04-May-2018 Inactive AMBIEN, 5MG (Oral Tablet) 1 Tablet at night prn for 0 days Quantity: 90 {Tablet} Refills: 0 Ordered:27-Jul-2015 Nova Posadas LPN Start : 29-Jul-2011 End : 27-Jul-2015 Discontinued Comments:ninety Amiodarone HCl 100 MG Oral Tablet 1 (one) Tablet qd for 0 days Quantity: 30 {Tablet} Refills: 0 Ordered:24-Aug-2015 Clary TIRADO, Minerva Steward MD, Minerva Painting Start : 24-Aug-2015 End : 03-Jan-2017 Discontinued DIAZEPAM, 5MG (Oral Tablet) 1 tab q8hrs prn (5 MG) End : 14-Jun-2015 Discontinued Comments:[facility] DOXYCYCLINE HYCLATE, 100MG (Oral Tablet) 1 (one) Tablet bid for 0 days Quantity: 20 {Tablet} Refills: 0 Ordered:02-Aug-2015 Slarb SHUTDOWN COORDINATOR Meka Start : 14-Jul-2015 End : 02-Aug-2015 Discontinued Dulera 200-5 MCG/ACT Inhalation Aerosol 1 (one) Aerosol Aerosol daily for 1 week then stop for 0 days Quantity: 1 {Each} Refills: 0 Ordered:29-Jul-2016 Minerva Vergara MD, MD, Dana M Start : 29-Jul-2016 End : 29-Jul-2016 Discontinued ETODOLAC CR, 400MG (Oral Tablet Extended Release 24 Hour) 1 Tablet ER 24HR daily for 0 days Quantity: 30 {Tablet_ER_24HR} Refills: 2 Ordered:10-Jan-2011 Minerva Vergara MD, MD, Dana M Start : 10-Jan-2011 End : 10-Jan-2011 Discontinued KENALOG, 0.5% (External Cream) 1 Cream bid for 0 days Quantity: 1 {Cream} Refills: 0 Ordered:03-Sep-2010 ARON Lawrence Start : 07-May-2010 End : 03-Sep-2010 Discontinued Comments:This order discontinued per [facility]. LOSARTAN POTASSIUM, 25MG (Oral Tablet) 1 (one) Tablet qd for 0 days Quantity: 90 {Tablet} Refills: 0 Ordered:11-Dec-2015 Minerva Vergara MD, MD, Dana M Start : 11-Dec-2015 End : 11-Dec-2015 Discontinued LOSARTAN POTASSIUM, 25MG (Oral Tablet) 1 (one) Tablet qd for 0 days Quantity: 30 {Tablet} Refills: 0 Ordered:11-Dec-2015 Minerva Vergara MD, MD, Dana M Start : 11-Dec-2015 End : 11-Dec-2015 Discontinued OXYCODONE-ACETAMINOPHEN, 5-325MG (Oral Tablet) 1 (one) Tablet use prn every 6 hours. uses about 1-2 a day for 0 days Quantity: 60 {Tablet} Refills: 0 Ordered:27-Jul-2015 Nova Posadas LPN Start : 06-Jun-2015 End : 27-Jul-2015 Discontinued Comments:sixty PREDNISONE, 20MG (Oral Tablet) 2 (two) Tablet daily for 0 days Quantity: 10 {Tablet} Refills: 0 Ordered:27-Jul-2015 CuauhtemocIgnacio kyle LPNsie Start : 17-Jul-2015 End : 27-Jul-2015 Discontinued Premarin 0.625 MG/GM Vaginal Cream 1 (one) Cream twice weekly OR 1gm and small amount over urethra for 90 days Refills: 3 Ordered:29-Jul-2016 Clary TIRADO, Minerva Steward MD, Minerva Painting Start : 29-Jul-2016 End : 29-Jul-2016 Discontinued Allergies and Adverse Reactions Name Dates Details Levaquin *FLUOROQUINOLONES* (Allergy) Status: Active Comments: Shock Torsemide *DIURETICS* (Allergy) Status: Active Comments: hives Past Medical History Name Dates Details Abdominal pain, acute (R10.9, 789.00) Comments: CT scan okay. then repeat CT 11-25 show percholic streak ? cholecystitis and then IVC filter 4 struts through wall. had AISSATOU. colonscopy 2016. right now will do KUB and see if alot stool. treat wit h mg citrate in past. better once clean out bowels KUB show constipsation need to clean out. had MANA got copy. willnow repeat CT per bud but wiht contrast pt and aware can affect the kidney s which she ill make sure she drinks alot of water. Status: Inactive as of 28-Jan-2017 Abdominal pain, acute, generalized (R10.84, 789.07) Status: Inactive as of 28-Jan-2017 Abnormal RBC indices (R71.8, 790.09) Comments: RDW up so will check ferritin with next labs. Status: Resolved as of 22-Jan-2018 ABNORMAL RESULT, FUNCTION STUDY, EKG (794.31) Status: Inactive as of 14-Jul-2015 Actinic keratosis (L57.0, 702.0) Comments: one on back of left leg keep bleeding on pants Status: Resolved as of 04-May-2018 Acute cystitis without hematuria (N30.00, 595.0) Status: Inactive as of 28-Jan-2017 Acute sinusitis (J01.90, 461.9) Comments: saline rinses. Status: Inactive as of 03-Dec-2012 Acute systolic congestive heart failure (I50.21, 428.21) Comments: right now some increase in weight hear in lungs just lowered lasix and so shanae increase some backup Status: Resolved as of 22-Jan-2018 AFTERCARE, LONG-TERM USE, MEDICATIONS NEC (V58.69) Status: Inactive as of 14-Jul-2015 BMI 26.0-26.9,adult (Z68.26, V85.22) Status: Resolved as of 04-May-2018 BMI 27.0-27.9,adult (Z68.27, V85.23) Status: Inactive as of 11-Nov-2017 BMI 27.0-27.9,adult (Z68.27, V85.23) Status: Resolved as of 31-Jul-2017 BMI 28.0-28.9,adult (Z68.28, V85.24) Comments: 28.79 Status: Resolved as of 27-Aug-2017 BMI 29.0-29.9,adult (Z68.29, V85.25) Status: Resolved as of 27-Aug-2017 Bronchitis (J40, 490) Status: Resolved as of 23-Sep-2017 Bronchitis, acute (J20.9, 466.0) Comments: ? viral ? atypical treat wit doxy to cover what augmentin not cover. aersolo prednisone not betetr cxr Status: Inactive as of 03-Sep-2013 Bursitis, olecranon (M70.20, 726.33) Comments: with cellulitis. much much better. less angry red and swolen. now just bruised skin. bursa swelling gone. culture prelim negative.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 Vital Signs06/17/18 Body Mass Index (BMI) 24.7 06/17/18 Blood Pressure 92/56 06/17/18 Height 5 ft 11 in 06/17/18 Weight: 182 lb 06/17/18 Body Mass Index (BMI) 25.4 06/17/18 Blood Pressure 104/68 Intake Visit Reasons: 9 M FU Allergies levofloxacin [Levofloxacin] Allergy (Verified 06/17/18 13:47) Hives warfarin [From Coumadin] Allergy (Verified 8 13:47) Other torsemide [From Demadex] Adverse Reaction (Intermediate, Verified 06/17/18 13:47) Rash Medications Amitriptyline HCl 50 mg PO QHS PRN 07/22/15 [History Confirmed 06/17/18] Aspirin [Asp irin, Baby] 81 mg PO DAILY@0800 08/09/15 [History Confirmed 06/17/18] Multivitamins,Therapeutic [Multivitamin] 1 tab PO DAILY 11/16/15 [History Confirmed 06/17/18] citalopram 20 mg tablet 20 mg PO QDAY 07/25/17 [History Confirmed 06/17/18] albuterol sulfate HFA 90 mcg/actuation aerosol inhaler 2 puff INHALATION Q6H 09/10/17 [History Confirmed 06/17/18] metolazone 5 mg tablet 5 mg PO .COMPLEX 09/11/17 [History Confirmed 06/17/18] pravastatin 40 mg tablet 40 mg PO QHS tab 09/11/17 [History Confirmed 06/17/18] fluticasone 50 mcg/actuation nasal spray,suspension 2 spray INTRANASAL QDAY 01/20/18 [History Confirmed 06/17/18] carvedilol 6.25 mg tablet 6.25 mg PO BID #180 tab 04/06/18 [Rx Confirmed 06/17/18] apixaban 2.5 mg tablet 2.5 mg PO BID 06/17/18 [History Confirmed 06/17/18] furosemide 40 mg tablet 40 mg PO BID tab 06/17/18 [History Confirmed 06/17/18] magnesium 250 mg tablet 250 mg PO .QOD tab 06/17/18 [History Confirmed 06/17/18] potassium chloride ER 20 mEq tablet,extended release 20 meq PO .C OMPLEX 06/17/18 [History Confirmed 06/17/18] [facility] Medical History Paroxysmal ventricular tachycardia (Acute) Paroxysmal atrial tachycardia (Acute) Par oxysmal atrial fibrillation (Acute) Chronic systolic (congestive) heart failure (Chronic) Thrombophlebitis of left internal iliac vein (Acute) Bilateral carpal tunnel syndrome (Resolved) Menopausal oste oporosis (Chronic) Myalgia (Chronic) Renal insufficiency (Acute) Balance disorder (Chronic) Gait abnormality (Chronic) UTI symptoms (Acute) Memory impairment (Chronic) Prediabetes (Chronic) Stroke (Condenser Winder gemma) Nonrheumatic mitral (valve) prolapse (Resolved) Hyperlipemia (Chronic) Heart palpitations (Acute) Long-term use of high-risk medication (Chronic) 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) Tendinitis, calcific, shoulder (Acute) Weakness (Chronic) Rotator cuff tendonitis (Acute) Syncope (Acute) Cervicalgia (Acute) Degenerative joint disease of right acro mioclavicular joint (Chronic) Spondylosis of cervical joint (Chronic) Cervical radiculopathy (Chronic) Abdominal pain (Acute) Bilateral leg edema (Acute) DVT of lower extremity, bilateral (Acute) Hypoka lemia (Acute) Restrictive lung disease (Chronic) Dyspnea on exertion (Chronic) Sleep-related breathing disorder (Chronic) URMILA (obstructive sleep apnea) (Chronic) Hypothyroidism (Chronic) Pulmonary HTN ( Chronic) Cardiomyopathy (Chronic) Adrenal cortex insufficiency (Chronic) Arrhythmia, ventricular (Inactive) CAD (coronary artery disease) (Inactive) Cardiac dysrhythmia, unspecified (Inactive) Orthostat ic hypotension (Inactive) Pneumonia (Inactive) Surgical History S/P implantation of automatic cardioverter/defibrillator (AICD) (Resolved) History of m itral valve replacement with porcine valve (Chronic) History of bilateral hip replacements (Resolved) History of bilateral knee replacement (Resolved) History of cataract surgery (Resolved) History of h ysterectomy (Resolved) AICD (automatic cardioverter/defibrillator) present (Inactive) Heart valve replaced by other means (Inactive) Family History Fath er CVA (cerebral vascular accident) Mother Cancer bone Sister Cancer bone Diabetes Social History Smoking Status: Never smoker second hand exposure: No alcohol intake: never substance use type: does n ot use ROS Const Const: Positive for fatigue (wear out easy); negative for weakness, weight gain, weight loss, frequent falls or excessive sweating Eyes Eyes: Negative for change in vision, blurry v ision or transient loss of vision ENT ENT: Positive for dizziness (the other day, BP was low systolic in the 80's) and balance problems (ambulates with a cane) Cardio Chest Pain: No Palpitations: No Horace ma: None Muscle aches with walking: None Resp Respiratory: Positive for SOB with activity (going up/downstairs); negative for SOB at rest GI GI: Negative vomiting or vomiting blood/hematemesis : Ne gative for hematuria Musc Musc: Positive for balance problems (ambulates with a cane) and muscle aches/ myalgia (back pain); negative for muscle weakness or joint pain Skin Skin: Negative non-healing le sions or rash Neuro Neuro: Positive for dizziness (the other day, BP was low systolic in the 80's); negative for weakness, blurry vision, lightheadedness, frequent falls or orthostatic symptoms Ran Hem atologic/Lymphatic: Negative for easy bleeding Endo Endo: Positive for fatigue (wear out easy); negative for excessive sweating Psych Psych: Negative for anxiety or depression Allergy Allergy/Immunology : Negative for hives, Negative for rash Cardiology Exam Const Appearance: cooperative, healthy appearing, comfortable, no acute distress, well developed and well groomed Nutritional Appearance: averag e body habitus Orientation: alert, awake and oriented x3 Head Head: normal to inspection, normocephalic and atraumatic Ears: hearing grossly normal bilaterally Nose: external nose normal Mouth: oral muc osae normal Teeth and gingiva: fair dentition Eyes Eyelids: eyelids normal Conjunctivae: conjunctivae normal Pupils: PERRL EOM: EOM intact bilaterally Neck Neck: normal visual inspection and full ROM Ca rotids: normal carotid upstroke Chest Chest inspection: normal inspection of the chest, symmetric chest movement and normal respiratory effort Auscultation: Bilateral: Clear to Auscultation Cardio Palpa tion: normal PMI Rate: regular rate Rhythm: regular rhythm and ectopic beats Heart sounds: S1 normal and S2 normal Murmur: Grade 2/6, soft, holosystolic, apex and axilla GI GI: normal to inspection, sof t, no hepatosplenomegaly and bowel sounds present Neuro General: alert, awake, oriented x3 and moves all extremities Skin Skin: no rashes or lesions noted Extremities Pulses: Normal: Right Radial Pulse, Left Radial Pulse Lower Extremity Edema: None: Bilateral Psych Psychological: normal affect Supplemental Info Transthoracic echocardiogram: 12/25/2016 Interpretation Summary The study was technically difficult. Contrast injection was performed. Mild to moderate left ventricular dilatation. Severe segmental systolic dysfunction (see wall motion). The estimated ejection fraction is 20 %. Moderately dilated right ventricle. Moderate global right ventricular systolic dysfunction. The left atrium is moderately enlarged. The right atrium is moderately enlarged. Stable apearing bioprosthetic mitral aurora ve apparatus with 2D echocardiographic images c/w prosthetic valve leaflet thickening and partial restriction with spectral doppler c/w moderate mitral valve stenosis. Moderate (2+) transvalvular insuff iciency of the mitral valve. Moderate (2+) tricuspid valve insufficiency. Trivial aortic valve insufficiency. Trivial pulmonic valve insufficiency. Calcified aortic root. Right ventricular systolic pres sure estimated to be 41 mmHg. ICD or pacer leads identified within the right atrium ICD or pacer leads identified within the right ventricle. Comment: 2D echocardiographic images demonstrate a small mob ile echodensity in the right atrium appearing associated with an ICD lead appearing c/w a small thrombus, although other etiologies of mobile mass lesions cannot be completely excluded. Transesophageal echocardiogram: 08/10/2015 Interpretation Summary Severe global left ventricular systolic dysfunction. The estimated ejection fraction is 20 %. 2D echocardiographic images appear c/w right ventricular dilatation and moderate to severe global right ventricular systolic dysfunction. The left atrium is moderately enlarged. There is no spontaneous contrast in the left atrium. 2D echocardiographic images c/w a left atrial appendage ligation wtih no obvious left atrial appendage thrombus identified. The right atrium is moderately enlarged. Stable appearing bioprosthetic mitral valve apparatus with 2D an d 3D echocardiographic images c/w prosthetic valve leaflet thickening and partial restriction of the posterior leaflet with spectral doppler c/w moderate to severe mitral valve stenosis. Moderate (2 ) t ransvalvular insufficiency of the mitral valve. Mild to moderate (1-2+) tricuspid valve insufficiency. Mild diffuse aortic valve thickening. Mild focal. aortic valve calcification. Bubble contrast study negative for right to left intera.tria.l shunt. Mild atherosclerosis of the descending aorta.. lCD or pacer leads identified within the right atrium lCD or pacer leads identified within the right ventr icle. Comment: 2D echocardiographic images demonstrate a. small mobile echodensity in the right atrium appearing associated with an lCD lead appearing c/w a small thrombus, although other etiologies of mobile mass lesiona can.not be completely excluded. Stress test: 09/16/2007 CONCLUSION: 1. Normal physiologic response to adenosine infusion. 2. No symptoms to suggest angina elicited with adenosine inf usion. 3. Resting electrocardiogram demonstrating sinus rhythm with, frequent premature ventricular complexes and nonspecific lateral ST T wave changes. 4. Electrocardiogram with adenosine infusion demo nstrating sinus rhythm with frequent premature ventricular complexes but no new ST changes to suggest ischemia, 5. Nuclear images demonstrate a subtle decrease in inferior wall activity at rest and with adenosine suggestive of diaphragmatic attenuation or bowel associated artifact. There was a subtle reversible lateral perfusion defect developing with adenosine suspicious for inducible ischexmLa. [facility] catheterization: 05/29/2011 CONCLUSION 1. Lbii-bw-pggbujuo global left ventricular systolic dysfunction. Ejection fraction 40 percent. 2. Left main with 10 percent eccentric ostial stenosis/eccent smiley takeoff. 3. Left anterior descending with 10-20 percent smooth tubular proximal stenosis. 4. Circumflex coronary angiographically normal. 5. Right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 angiographically normal. Pacemaker /ICD: Regulatory Law Specialist: [email or web address] Name: Protecta VR Model #: [id number] Serial #: [id number] Date Implanted: 04/29/2013 Device Characteristics Device: Single Chamber Type: Implantable defibrillator Open hea rt surgery: 10/09/2009: Mitral valve replacement with a 31 mm [employer] epic porcine valve and closure of the left atrial Assessment AND Plan 1. Nonrheumatic mitral (valve) prolapse I34.1 Plan She does have a history of underlying mitral valve disease and is status post mitral valve replacement. At the present time she is being followed locally and at [facility]. Thus far it does not appear O issue has decided to proceed with additional percutaneous valvular intervention. She will continue to be followed with echocardiogram to monitor not only her mitral valve but her left ventricular size, wall motion, and systolic function. She does need to continue AHA antibiotic prophylaxis 2. History of mitral valve replacement with porcine valve Z95.3 mod-severe stenosis by SOL 08/11/15 may need rep lacement Plan She has undergone mitral valve replacement as previously noted. She will continue evaluation care as noted above. Orders Orders: 3. Cardiomyopathy, unspecified type I42.9 Plan She does h ave a history of what is thought to be a non-CAD related cardiomyopathy. This will be reassessed with an echocardiogram. Depending upon her findings she may be a candidate for additional medical manage ment such as Entresto. Orders Orders: 4. Chronic systolic CHF (congestive heart failure) I50.22 Plan She has had no symptoms of acute on chronic systolic CHF. Again she will undergo evaluation care as noted above 5. Cardiac dysrhythmia I49.9 Plan She has a history of underlying cardiac dysrhythmia. At the moment she appears remaining in sinus rhythm with PVCs. She will continue to be followed. 6. S /P implantation of automatic cardioverter/defibrillator (AICD) Z95.810 Plan She does have a pacemaker/ICD in place. It has been followed. She states she has had no discharges since her last follow-up vi sit 7. Hyperlipidemia, unspecified hyperlipidemia type E78.5 Plan Her lipid labs were checked on 06/12/2018 at [facility] in [place], [place]. According to the report received today her cholesterol is 124 with an LDL of 48 and an HDL of 49 and a triglyceride level of 133. Her AST ALT and alkaline phosphatase were within normal range. She will continue medical management and follow-up 8. Long-ter m use of high-risk medication Z79.899 Plan Based upon her medications she will have future follow-up studies as deemed appropriate Plan Detail Other Orders Orders: Additional Comments The above was dis cussed with her. She was agreeable to this approach. Thank you for allowing me to participate in the care of your patient. Please don't hesitate to call if any issues arise. This note was generated us ing a voice recognition system and there may be incorrect words, spelling or punctuation that were not noted when reviewing the office note prior to saving. Follow Up 6 Months (PFM) Coding Level of C are Code Off vis,est,level 4 Diagnoses Nonrheumatic mitral (valve) prolapse I34.1 History of mitral valve replacement with porcine valve Z95.3 Cardiomyopathy, unspecified type I42.9 Cardiomyopathy type : unspecified Chronic systolic CHF (congestive heart failure) I50.22 Cardiac dysrhythmia I49.9 S/P implantation of automatic cardioverter/defibrillator (AICD) Z95.810 Hyperlipidemia, unspecified hyperli pidemia type E78.5 Hyperlipidemia type: unspecified Long-term use of high-risk medication Z79.899 Coding Level of Care Code Off vis,est,level 4 Diagnoses Nonrheumatic mitral (valve) prolapse I34.1 Hi story of mitral valve replacement with porcine valve Z95.3 Cardiomyopathy, unspecified type I42.9 Cardiomyopathy type: unspecified Chronic systolic CHF (congestive heart failure) I50.22 Cardiac dysrhyth kathy I49.9 S/P implantation of automatic cardioverter/defibrillator (AICD) Z95.810 Hyperlipidemia, unspecified hyperlipidemia type E78.5 Hyperlipidemia type: unspecified Long-term use of high-risk medica tion Z79.899 06/17/18 1435 <Electronically signed by Gurdeep Huang MD> Date Gurdeep Huang MD Cosigner Signature: Date _ (if applicable) CC: Minerva Vergara MD 17-Jun-2018 12 Lead EKG performed by [facility] Result: Comments: See Note; NOTES: [facility] [address] [place] [address] 12 Lead EKG performed by [facility] 06/17/18 1359 MR#: [id number] Acct: [id number] Name: IRIS VALENCIA Rep #: [id number] : 1940 78 From: Gurdeep Huang MD Attending Dr: Gurdeep Huang MD Status: DEP [facility] Ordering Dr: Gurdeep Huang MD Date: 06/17/18 Location: [facility] Sex: F C Admitted: BMS/12 Lead EKG performed by [facility] ECG Report Interpretation Sinus Rhythm -First degree A-V block - multiform ectopic ventricular beats Poor R wave progress ionVoltage criteria for Left ventricular hypertrophy Nonspecific ST depression ABNORMAL Electronically signed on 06/17/2018 at 17:25 by Gurdeep Huangwood Software Version [id number] 06/17/18 1726 Da te Gurdeep Huang MD CC: Minerva Vergara MD Date Dictated: 06/17/181358 Date Transcribed: 06/17/181358 [employer] Operator: PM Signed 01-May-2018 Pacemaker Check Result: Comments: See Note; NOTES: [facility] [address] [place] [address] Pacemaker Check Date of Service: 05/01/18 1428 MR#: [id number] Acct: [id number] Name: IRIS ARRIAGA Rep #: [id number] : 1940 From: Kim Pickard Age/Sex: 78/F Location: [facility] Status: Signed Billing Codes ICD Device Billing: ICD Dev Prog Eval, Single 05/01/18 1430 <Elect ronically signed by Kim Pickard > Date Kim Pickard 05/01/18 1634<Electronically signed by Gurdeep Huang MD> Cosigner Sign ature: Date (if applicable) Gurdeep Huang MD CC: 18-Mar-2018 Pulmonary Visit Report Result: Comments: See Note; NOTES: [facility] [address] [place] [address] OFFICE VISIT Date of Service: 03/18/18 MR#: [id number] Acct: [id number] Name: IRIS STRINGER CH Rep #: [id number] : 1940 Provider: Glenna Anderson Age/Sex: 78/F Location: [facility] Status: Signed Assessment AND Plan Problems 1. URMILA (obstructive sleep apnea) G47.33 Plan Donovan pite the fact that the patient is using and benefiting from her Pap therapy she continues to have high leaks. Sending her to Pap education to try to troubleshoot any problems that could be changed. Foll ow-up with Dr. Barcenas in 3 months. The patient and her have been encouraged to contact the office if she has any new or worsening symptoms in the meantime, or if Pap education has not been helpfu l and she continues to suffer from high leaks and dry mouth. Orders Orders: Plan Detail Follow Up 3 Months (DMB) HPI 1 M FU: Chief Complaint: Pap mask leaks HPI Comments Details: This is a 78 year old F, here to follow up for sleep apnea. Current use of pressure support therapy is on average of 7-1/2 hours per night with current settings of 12 cmH2O. IRIS denies any daytime somnolence, noctur ia, snoring through the mask, or morning headaches , but is experiencing dry mouth in the morning, and difficulty with mask leaks. IRIS reports feeling rested in the morning and is benefitting from c urrent therapy. Compliance report was reviewed and shows 67% compliance, current AHI is slightly improved at an average of 4.8 events per hour, leaks appear to be continued issue. Overall she believes her breathing is better. She denies any shortness of breath, cough, sputum production or hemoptysis. She denies any fever, chills or body aches. See complete review of systems. She has tried a waste rising mouthwash prescribed by her dentist for the dry mouth, which she believes has been somewhat helpful. Intake Vital Signs03/18/18 Height 5 ft 11 in 03/18/18 Weight: 180 lb Intake V isit Reasons: 1 M FU Chief Complaint: Shortness of breath on exertion DME Vendor: [employer] Accompanied by: Allergies levofloxacin [Levofloxacin] Allergy (Verified 10/15/17 13:57) Hives warfarin [ From Coumadin] Allergy (Verified 10/15/17 13:57) Other torsemide [From Demadex] Adverse Reaction (Intermediate, Verified 10/15/17 13:57) Rash Medications Amitriptyline HCl 50 mg PO QHS PRN 07/22/15 [ History Confirmed 10/15/17] Levothyroxine [Synthroid] 88 mcg PO DAILY #0 07/26/15 [Rx Confirmed 10/15/17] Aspirin [Aspirin, Baby] 81 mg PO DAILY@0800 08/09/15 [History Confirmed 10/15/17] Multivitamins, Therapeutic [Multivitamin] 1 tab PO DAILY 11/16/15 [History Confirmed 10/15/17] citalopram 20 mg tablet 20 mg PO QDAY 07/25/17 [History Confirmed 10/15/17] albuterol sulfate HFA 90 mcg/actuation aerosol inhaler 2 puff INHALATION Q6H 09/10/17 [History Confirmed 10/15/17] carvedilol 6.25 mg tablet 6.25 mg PO BID 09/10/17 [History Confirmed 10/15/17] apixaban 5 mg tablet 5 mg PO BID tab 09/11/17 [History Confirmed 10/15/17] furosemide 40 mg tablet 20 mg PO BID tab 09/11/17 [History Confirmed 10/15/17] gabapentin 100 mg capsule 100 mg PO BID PRN 09/11/17 [History Confirmed 10/15/17] metolazone 5 mg tabl et 5 mg PO .COMPLEX 09/11/17 [History Confirmed 10/15/17] mometasone-formoterol HFA 100 mcg-5 mcg/actuation aerosol inhaler 2 puff INHALATION BID PRN 09/11/17 [History Confirmed 10/15/17] pravastatin 40 mg tablet 40 mg PO QHS tab 09/11/17 [History Confirmed 10/15/17] cholecalciferol (vitamin D3) 2,000 unit capsule 2,000 unit PO DAILY PRN 10/15/17 [History Confirmed 10/15/17] hydrocortisone 5 mg tablet See Label Instructions PO QDAY tab 10/15/17 [History Confirmed 10/15/17] loratadine 10 mg tablet 10 mg PO DAILY PRN 10/15/17 [History Confirmed 10/15/17] potassium chloride ER 20 mEq tablet,extended re lease 20 meq PO QDAY 12/18/17 [History] fluticasone 50 mcg/actuation nasal spray,suspension 2 spray INTRANASAL QDAY 01/20/18 [History] [facility] Medical History Thrombophlebitis of left internal iliac vein (Acute) Bilateral carpal tunnel syndrome (Resolved) cataract surgery (Resolved) Menopausal osteoporosis (Chronic) Myalgia (Chronic) Renal insuffi ciency (Acute) Balance disorder (Chronic) Gait abnormality (Chronic) UTI symptoms (Acute) Memory impairment (Chronic) Prediabetes (Chronic) Stroke (Chronic) Nonrheumatic mitral (valve) prolapse (Resolve d) Hyperlipemia (Chronic) A-fib (Chronic) Cardiac dysrhythmia, unspecified (Acute) CHF (congestive heart failure) (Chronic) Heart palpitations (Acute) Heart valve replaced by other means (Resolved) Long -term use of high-risk medication (Chronic) Atherosclerotic heart disease of [place]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 with angina pectoris (Chronic) Tendinitis, calcific, shoulder (Acute) Weakness (Chronic) Rotator cuff tendonitis (Acute) Syncope (Acute) Cervicalgia (Acute) 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) Cervical radiculopathy (Chronic) Abdo gigi pain (Acute) Bilateral leg edema (Acute) DVT of lower extremity, bilateral (Acute) Hypokalemia (Acute) Restrictive lung disease (Chronic) Dyspnea on exertion (Chronic) Sleep-related breathing diso rder (Chronic) URMILA (obstructive sleep apnea) (Chronic) CAD (coronary artery disease) (Chronic) AICD (automatic cardioverter/defibrillator) present (Chronic) Arrhythmia, ventricular (Chronic) Hypothyroid ism (Chronic) 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) Pulmonary HTN (Chronic) Cardiomyopathy (Chronic) Orthostatic hypotension (Acute) Adrenal cortex insufficiency (Chronic) Pne umonia (Acute) Surgical History History of bilateral knee replacement (Resolved) History of hysterectomy (Resolved) History of bilateral hip repl acements (Resolved) S/P implantation of automatic cardioverter/defibrillator (AICD) (Resolved) Family History Father CVA (cerebral vascular accide nt) Mother Cancer bone Sister Cancer bone Diabetes Social History Smoking Status: Never smoker second hand exposure: No alcohol intake: never substance use type: does not use Review of Systems Const CONSTITUTIONAL: Negative anorexia, body ache, chills, daytime sleepiness, fever(s), night sweats, oral thrush, stops breathing during sleep, weight loss, sleeping in chair, fatigue, weight loss, weight gain, frequent colds, seasonal allergies, other, headache(s) or orthopnea EETM Ear Nose Throat Mouth: Positive hearing normal and dry mouth in morning; negative hard of hearing, hoarseness, valentin e in vision, itchy eyes, eye pain, swallowing Difficulty, ear pain, nose bleed, headache(s), mouth pain, nasal congestion, nasal discharge, post nasal drip, sinus pain, sinus pressure, sore throat or ot her Cardio Cardiovascular: Negative chest pain, chest pain at rest, chest pain with activity, irregular heart rhythm, edema, shortness of breath when lying down, palpitations, murmur or other Resp Respi ratory: Positive as per HPI and cough cough: Positive non-productive; negative shortness of breath, pain with cough, wheezing, chest congestion, chest tightness, pain on inspiration, inhalers, increase use of rescue inhalers, snoring, apnea or other Gastro Gastrointestional: Negative bloody stools, change in appetite, difficulty swallowing, reflux, hematemesis, melena stool, loose stool, constipation or other Genitourinary: Negative blood in urine, nocturia, pain with urination or other Musc Musculoskeletal: Negative body pain, back pain, neck pain or other Skin/Breast Skin/Breast: Negative dry s kin, itching, rash, unusual bruising, breast lump or other Neuro Neurological: Negative restless legs, confusion, weakness or other Psych Psychocological: Negative abnormal sleep pattern, anxiety, thoug hts of hurting self/others, hopelessness or other Lymph Lymphatic: Negative easy bleeding, easy bruising, swollen lymph nodes or other Exam Const Constitutional: Positive conversant, cooperative, in n o acute respiratory distress, healthy appearing, well developed, well nourished and good hygiene Head Head: Positive normocephalic and atraumatic; negative cyanosis of lips/distal nose Eyes Eye: Positiv e clear conjunctiva; negative nystagmus or scleral abnormality Ears Ear: Positive hearing normal and external ears normal; negative hard of hearing Nose Nose: Positive external nose normal and no nasal discharge; negative epistaxis Mouth Mouth: Positive posterior oropharynx is adequate, no lesions and good dentition; negative post nasal drip, oral mucosae normal (dry), malodorous breath or oral thrush present Mallampati Score: II: Mallampati Score Neck Neck: Positive normal visual inspection, full ROM and trachea midline; negative lymphadenopathy, JVD or tender Chest Wall Chest: Positive normal insp ection of the chest and symmetric chest movement; negative increased A/P diameter Resp lung sounds: Positive clear to auscultation, good air exchange, normal expiratory time and normal respiratory effor t; negative diminished, wheezes, rhonchi, rales, dullness to percussion or wheeze present on forced exhalation Cardio Cardiac: Positive regular rate, regular rhythm, S1 normal and S2 normal; negative mu rmur GI GI: Positive normal to inspection and normal bowel sounds; negative distended Genitourinary: Positive deferred Musc Musculoskeletal: Positive steady gait and ROM normal; negative kyphosis or scoliosis Skin Pulmonary Skin Exam: Positive intact; negative rash, lesion, ulcers or erythema Pulses Pulse: Yes pulses normal x4 extremities Extremities Extremities: Yes capillary refill normal, No clu bbing, No cyanosis, No edema Neuro Neurologic: Yes conversant, Yes no focal neuro deficits, Yes normal concentration, Yes understands questions, Yes cooperative, Yes normal cognition, Yes normal coordin ation Lymph Lymphatic: No lymphadenopathy, No tenderness, No cervical adenopathy, No axillary adenopathy Psych Appearance: Positive grossly normal, eye contact and well kempt Mental Status: Positive men tate status grossly normal Mood: Positive congruent mood Affect: Positive normal affect Coding Level of Care Code Off vis,est,level 3 Diagnoses URMILA (obstructive sleep apnea) G47.33 03/18/18 0847 &a mp;#60;Electronically signed by Glenna CORADO> Date Glenna CORADO Cosigner Signature: Date (if applicable) CC: Minerva Vergara MD 02-Feb-2018 Pacemaker Check Result: Comments: See Note; NOTES: [facility] [address] [place] [address] Pacemaker Check Date of Service: 01/28/18 1424 MR#: [id number] Acct: [id number] Name: IRIS ARRIAGA Rep #: [id number] : 1940 From: Kim Raber Age/Sex: 78/F Location: [facility] Status: Signed Comments Summary Comments: Single Chamber ICD Report: See attached scanned principal statistical programmer Repor t. Interrogation shows no VT/VF episodes since last check 09/25/17. Left pectoral pocket/incision w/o s/s of infection or erosion. Pt offers no cardiac complaints. Presenting rhythm shows NSR @ 98 bpm. V P=<0.1%. Lead impedance, sensing and pace/sense threshold remain stable. No parameter changes made. Counters cleared. Next f/u appt scheduled for in 3 mos. Device Device Date Interviewed: 01/10 Follow-up Location: in office Interview Reason: routine follow up Regulatory Law Specialist: Medtronic Name: Protecta VR Model: [id number] Serial #: [id number] Implant Date: 04/29/13 Year(s): 4 Implant Physician: Dr. Jose Murphy Patient Characteristics Atrial Indication: Paroxysmal atrial fibrillation Ventricular Indication: Nonsustained VT Patient Substrate: Nonischemic cardiomyopathy By: Echo Implant DFT: 18J Underlying rhythm: Sinus rhythm Pacemaker Dependent: No Device Characteristics Device: Single Chamber Type: Implantable defibrillator Remote Follow-Up: No Device Physical Exam Yes Incision well healed Leads Lead #1 Regulatory Law Specialist Lead 1: Medtronic Model Lead 1: 5076 Serial# Lead 1: [id number] Date Implanted Lead 1: 09/03/04 Position Lead 1: RV Lead #2 Regulatory Law Specialist Lead 2: Medtronic Model Lead 2: 6943 Serial# Lead 2: [id number] Date Implanted Lead 2: 11/18/00 Position Lead 2: RV Diagnostics Pacing % RV Pacin.1 Arrhythmias VF Episodes: 0 Fast VT Episodes: 0 Slow VT Episodes: 0 Non-Sust Episodes: 0 Measurements Battery Voltage (V): 3.08 Charge Time (Sec): 10.2 EMILIE Voltage: 2.63 RV Measurements Signal Amplitude (mV): 9.3 Impedance (Ohms): 437 Tachy Settings Tachyarrhythmia Detection Ventricu lar Fibrillation Detect Rate: 222 bpm Slower VT Detect Rate: 182 bpm Tachyarrhythmia Therapies Ventricular Fibrillation Therapy: Shock therapy Initial shock: 25 Joules Final shock: 35 Joules. Slow Vent ricular Tachycardia Therapies: Antitachycardia pacing and shock therapy Initial shock: 25 Joules Final shock: 35 Joules. Kieran Settings Pacemaker Mode: VVI Base Rate: 40 bpm Max Sensor Rate: 120 bpm Bradycardia Output and Sensitivity Settings Right Ventricle: 0.4 msec, 2.5 volts. Billing Codes ICD Device Billing: ICD Dev Prog Eval, Single Assessment AND Plan Problems 1. S/P implantation of auto matic cardioverter/defibrillator (AICD) Z95.810 2. A-fib I48.91 3. Cardiac dysrhythmia, unspecified I49.9 4. Chronic systolic congestive heart failure I50.22 5. Heart palpitations R00.2 6. 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 Syncope R55 02/01/18 1335 <Electronically signed by Kim Pickard > Date Kmi Pickard 02/02/18 0800<Electronically signed by Gurdeep Huang MD> Cosigner Signature: Date (if applicable) Gurdeep Huang MD CC: 27-Oct-2017 Venous Duplex Lower Extremity Result: Comments: See Note; NOTES: [facility] Cardiovascular Services [address] [place] [address] Venous Duplex US, Unilateral 10/27/17 0952 MR#: [id number] Acct: [id number] Name: IIRS HOU Rep #: [id number] : 1940 77 From: Alejandro Armendariz MD Attending Dr: Minerva Vergara MD Status: REG CLI Ordering Dr: Minerva Vergara MD Date: 10/27/17 Location: [facility] Sex: F C Admitted: Reason For Study: F/U LLE DVT RIGHT LEFT CFV is compressible, spontaneous, phasic, CFV and FV are partially compressible with competent and demonstrates normal bright intraluminal echoes consistant with augmentation. chronic clot Procedure GSV harvested. Exam performed in department. POP V is compressible, spontaneous, phasic, A preliminary report was called and/or faxed competent and demonstrates normal to Dr. Vergara. augmentation. T/P Trunk is compressible. PTV is compressible. LT PerV is compressible. Interpretation Summary Chronic deep venous thrombosis left common femoral and femoral vein s. Harvested left great saphenous vein. Normal flow patterns right common femoral vein. Ordering Physician: Minerva Vergara Referring Physician: Minerva Vergara Performed By: Sheridan Acuna RVT 10/27/17 1614 Date Alejandro Armendariz MD CC: Minerva Vergara MD Date Dictated: 10/27/17 0952 Date Transcribed: 10/27/171613 Landfill [employer] Collection Operator: Signed 15-Oct-2017 Pulmonary Visit Report Result: Comments: See Note; NOTES: [facility] [address] [place] [address] OFFICE VISIT Date of Service: 10/15/17 MR#: [id number] Acct: [id number] Name: IRIS STRINGER CH Rep #: [id number] : 1940 Provider: Glenna Anderson Age/Sex: 77/F Location[place] [facility] [place] Status: Signed Assessment AND Plan 1. URMILA (obstructive sleep apnea) G47.33 Status Chronic Juan n Reduce pressure support to 12 cm of water. Follow-up with Dr. Barcenas in 3 months to continue to watch the AHI as well as continued symptom resolution. Anticipate less difficulties with mask air leaks. 2. IRENE (dyspnea on exertion) R06.09 Status Chronic Plan Stable. No additional testing at this time. Follow-up with Dr. Barcenas in 3 months. Plan Detail Follow Up 3 Months (DMB) [facility] Hospital FU: Chief Complaint: Shortness of breath on exertion [facility] Comments Details: This is a 77 year old F, currently under the care of Dr. Vergara of [facility], here to follow up for sleep apnea. She is ambulatory, using a cane, currently on room air and she is accompanied by her . Current use of pressure support therapy is on average of 7 hours per night with current settings of 16 cmH2O. CATHLEEN SIMEON denies any daytime somnolence, dry mouth in the morning, nocturia, snoring through the mask, or morning headaches, but is experiencing difficulty with mask leaks. IRIS reports feeling rested i n the morning and is benefitting from current therapy. Compliance report was reviewed and shows 73% compliance, current AHI is 2.7 events per hour, leaks do appear to be occasional issue. He has not b een seen in the ED urgent care for any respiratory illnesses since her last office visit. She has not been prescribed antibiotics or prednisone for any breathing problems. She is compliant with Dulera, denies any medication side effects such as sore throat or thrush. She reports rinsing her mouth out after each use. She is not currently needing to utilize her ProAir rescue inhaler. She reports having shortness of breath on exertion, and has not worsened. She denies any shortness of breath during conversation or at rest. She denies any cough, wheezing or chest tightness. She denies sputum production or hemoptysis. She denies any chest pain or palpitations. She denies any fever, chills or body aches. She has not utilized any [id number]-[id number] medications for her shortness of breath. Intake Vital Sig ns10/15/17 Height 5 ft 11 in 10/15/17 Weight: 172 lb Intake Visit Reasons: Hospital FU [place] Vendor: [employer] Allergies levofloxacin [Levofloxacin] Allergy (Verified 10/15/17 13:57) Hives warfarin [From C oumadin] Allergy (Verified 10/15/17 13:57) Other torsemide [From Demadex] Adverse Reaction (Intermediate, Verified 10/15/17 13:57) Rash Medications Amitriptyline HCl 50 mg PO QHS PRN 07/22/15 [Histor y Confirmed 10/15/17] Levothyroxine [Synthroid] 88 mcg PO DAILY #0 07/26/15 [Rx Confirmed 10/15/17] Aspirin [Aspirin, Baby] 81 mg PO DAILY@0800 08/09/15 [History Confirmed 10/15/17] Multivitamins,Therap eutic [Multivitamin] 1 tab PO DAILY 11/16/15 [History Confirmed 10/15/17] citalopram 20 mg tablet 20 mg PO QDAY 07/25/17 [History Confirmed 10/15/17] albuterol sulfate HFA 90 mcg/actuation aerosol inhal er 2 puff INHALATION Q6H 09/10/17 [History Confirmed 10/15/17] carvedilol 6.25 mg tablet 6.25 mg PO BID 09/10/17 [History Confirmed 10/15/17] apixaban 5 mg tablet 5 mg PO BID tab 09/11/17 [History Confi rmed 10/15/17] furosemide 40 mg tablet 20 mg PO BID tab 09/11/17 [History Confirmed 10/15/17] gabapentin 100 mg capsule 100 mg PO BID PRN 09/11/17 [History Confirmed 10/15/17] metolazone 5 mg tablet 5 m g PO .COMPLEX 09/11/17 [History Confirmed 10/15/17] mometasone-formoterol HFA 100 mcg-5 mcg/actuation aerosol inhaler 2 puff INHALATION BID PRN 09/11/17 [History Confirmed 10/15/17] pravastatin 40 mg ta blet 40 mg PO QHS tab 09/11/17 [History Confirmed 10/15/17] cholecalciferol (vitamin D3) 2,000 unit capsule 2,000 unit PO DAILY PRN 10/15/17 [History Confirmed 10/15/17] hydrocortisone 5 mg tablet See Kaycee costello Instructions PO QDAY tab 10/15/17 [History Confirmed 10/15/17] loratadine 10 mg tablet 10 mg PO DAILY PRN 10/15/17 [History Confirmed 10/15/17] [facility] Medical History Thrombophlebitis of left internal iliac vein (Acute) Bilateral carpal tunnel syndrome (Resolved) cataract surgery (Resolved) Menopausal osteoporosis (Chronic) Myalgia (Chronic) Renal insufficiency (Acute) Balance disorder (Chronic) Gait abnormality (Chronic) UTI symptoms (Acute) Memory impairment (Chronic) Prediabetes (Chronic) Stroke (Chronic) Nonrheumatic mitral (valve) prolapse ( Resolved) Hyperlipemia (Chronic) A-fib (Chronic) Cardiac dysrhythmia, unspecified (Acute) CHF (congestive heart failure) (Chronic) Heart palpitations (Acute) Heart valve replaced by other means (Resolve d) Long-term use of high-risk medication (Chronic) Atherosclerotic heart disease of [place]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 with angina pectoris (Chronic) Tendinitis, calcific, shoulder (Acute) Weakness (Chronic) Rotato r cuff tendonitis (Acute) Syncope (Acute) Cervicalgia (Acute) 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) Cervical radiculopathy (Chroni c) Abdominal pain (Acute) Bilateral leg edema (Acute) DVT of lower extremity, bilateral (Acute) Hypokalemia (Acute) Restrictive lung disease (Chronic) Dyspnea on exertion (Chronic) Sleep-related breathi ng disorder (Chronic) URMILA (obstructive sleep apnea) (Chronic) CAD (coronary artery disease) (Chronic) AICD (automatic cardioverter/defibrillator) present (Chronic) Arrhythmia, ventricular (Chronic) Hypo thyroidism (Chronic) 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) Pulmonary HTN (Chronic) Cardiomyopathy (Chronic) Orthostatic hypotension (Acute) Adrenal cortex insufficiency (Chron ic) Pneumonia (Acute) Surgical History History of bilateral knee replacement (Resolved) History of hysterectomy (Resolved) History of bilateral hip repl acements (Resolved) S/P implantation of automatic cardioverter/defibrillator (AICD) (Resolved) Family History Father CVA (cerebral vascular accident) Mot her Cancer bone Sister Cancer bone Diabetes Social History Smoking Status: Never smoker second hand exposure: No alcohol intake: never substance use type: does not use Review of Systems Const CONSTITUTIONAL: Negative anorexia, body ache, chills, daytime sleepiness, fever(s), night sweats, oral thrush, stops breathing during sleep, weight loss, sleeping in chair, fatigue, weight loss, weight gain, frequent colds, seasonal allergies, other, headache(s) or orthopnea EETM Ear Nose Throat Mouth: Positive hearing normal; negative hard of hearing, hoarseness, dry mouth in morning, change in visio n, itchy eyes, eye pain, swallowing Difficulty, ear pain, nose bleed, headache(s), mouth pain, nasal congestion, nasal discharge, post nasal drip, sinus pain, sinus pressure, sore throat or other Cardio Cardiovascular: Negative chest pain, chest pain at rest, chest pain with activity, irregular heart rhythm, edema, shortness of breath when lying down, palpitations, murmur or other Resp Respiratory: Po sitive as per HPI and shortness of breath shortness of breath: Positive with activity; negative pain with cough, wheezing, chest congestion, cough, chest tightness, pain on inspiration, inhalers, increa se use of rescue inhalers, snoring, apnea or other Gastro Gastrointestional: Negative bloody stools, change in appetite, difficulty swallowing, reflux, hematemesis, melena stool, loose stool, constipati on or other Genitourinary: Negative blood in urine, nocturia, pain with urination or other Musc Musculoskeletal: Negative body pain, back pain, neck pain or other Skin/Breast Skin/Breast: Negative dr y skin, itching, rash, unusual bruising, breast lump or other Neuro Neurological: Negative restless legs, confusion, weakness or other Psych Psychocological: Negative abnormal sleep pattern, anxiety, th oughts of hurting self/others, hopelessness or other Lymph Lymphatic: Negative easy bleeding, easy bruising, swollen lymph nodes or other Exam Const Constitutional: Positive conversant, cooperative, i n no acute respiratory distress, well developed, well nourished and good hygiene Head Head: Positive normocephalic and atraumatic; negative cyanosis of lips/distal nose Eyes Eye: Positive clear conjunct tessie and nystagmus; negative scleral abnormality Ears Ear: Positive hearing normal and external ears normal; negative hard of hearing Nose Nose: Positive external nose normal and no nasal discharge; nega tive epistaxis Mouth Mouth: Positive oral mucosae normal, no lesions and crowded posterior oropharynx; negative post nasal drip, malodorous breath or oral thrush present Mallampati Score: III: Mallampat i Score Neck Neck: Positive normal visual inspection, full ROM and trachea midline; negative lymphadenopathy, JVD or tender Chest Wall Chest: Positive normal inspection of the chest and symmetric chest movement; negative increased A/P diameter Resp lung sounds: Positive clear to auscultation, good air exchange, normal expiratory time and normal respiratory effort; negative diminished, wheezes, rhonchi , rales, dullness to percussion or wheeze present on forced exhalation Cardio Cardiac: Positive regular rate, regular rhythm, S1 normal and S2 normal; negative murmur GI GI: Positive normal to inspectio n and normal bowel sounds; negative distended Genitourinary: Positive deferred Musc Musculoskeletal: Positive steady gait, ROM normal, kyphosis and using an assistive device for ambulation; negative scoliosis Skin Pulmonary Skin Exam: Positive intact; negative rash, lesion, ulcers, erythema, scaly or dermal atrophy Pulses Pulse: Yes pulses normal x4 extremities Extremities Extremities: Yes capillar y refill normal, No clubbing, No cyanosis, No edema, No stasis dermatitis Neuro Neurologic: Yes conversant, Yes no focal neuro deficits, Yes cooperative, Yes normal cognition, Yes normal coordination, Y es normal concentration, Yes understands questions Lymph Lymphatic: No lymphadenopathy, No tenderness, No cervical adenopathy, No axillary adenopathy Psych Appearance: Positive grossly normal, eye conta ct and well kempt Mental Status: Positive mental status grossly normal Mood: Positive congruent mood Affect: Positive normal affect Coding Level of Care Code Off vis,est,level 3 Diagnoses URMILA (obstru ctive sleep apnea) G47.33 IRENE (dyspnea on exertion) R06.09 10/15/17 4126 <Electronically signed by Glenna HICKSC> Date Cher Anderson NP-C Siminer Signature: Date (if applicable) CC: Minerva Vergara MD 14-Oct-2017 SCREENING MAMM (CAD), BILAT Result: Comments: See Note; NOTES: [facility] Imaging Services [address] [place] [address] SCREENING MAMM (CAD), BILAT MR#: [id number] Acct: [id number] Name: IRIS ARRIAGA Rep #: [id number] : 1940 F 77 From: Ed Fink MD PCP: Minerva Vergara MD Status: REG CLI Study: SCREENING MAMM (CAD), BILAT Date of Exam: 10/14/17 Exam# [id number] Ordering Dr: Minerva Vergara MD MAMMOGRAPHY - BILATERAL SCREENING REASON FOR EXAM: Female, 77 years old. Routine annual screening examination. PERTINENT HISTORY: Sister with breast cancer. TECHNIQUE: Digital bilateral breast carlos (3D mammographic acquisition) in the CC and MLO projections. 2-D mediolateral oblique (MLO) and craniocaudad (CC) views of both breasts were obtained. CAD: Full Field Digital Mammography with Computer Added Detection was performed. COMPARISON: Comparison is made with prior study dated September 26, 2016 and July 09, 2012. FINDINGS: Breast Composition: There ar e scattered areas of fibroglandular density. There are no dominant masses or suspicious calcifications. Once again, a pacemaker battery pack is seen in the left axillary region. No other significant a bnormalities are identified. There has been no significant change since the prior study. HPBI/SCREENING MAMM (CAD), BILAT IMPRESSION: Stable bila teral screening mammogram. Yearly follow-up mammogram recommended. (A) ASSESSMENT CATEGORY: BIRADS Category 2: Benign. A letter regarding these results will be sent to the patient by the facility within 30 days. Approximately 10% of breast cancers are not detected by mammography. A normal mammogram should not delay biopsy of a clinically suspicious abnormality. [id number] Electronically Signed: Ed Fink MD at 11:10 EST Tel [phone], Service support , CC: Minerva Vergara MD Landfill [employer] Collection Operator: Signed 06-Oct-2017 Office Visit Report Result: Comments: See Note; NOTES: [address] [place] [address] OFFICE VISIT Date of Service: 09/25/17 MR#: [id number] Acct: [id number] Patient: IRIS ARRIAGA Rep #: [id number] : 1940 Provider: Kim Pickard Age/Sex: 77/F [place] [facility] [place] Status: Signed Comments Summary Comments: Single Chamber ICD Evaluation: Interrogation shows no VT/VF episodes since 06/17/17. Left pectoral pocket/incision w/o s/s of infection or erosion. Pt offers no cardiac complaints. Presenting rhythm shows NSR @ 92 bpm. SOLUTION MANAGER=<0.1%. Lead impedance, sensing and pace/sense thres hold remain stable. No parameter changes made. Counters cleared. Next f/u appt scheduled for in 3 mos. Device Device Date Interviewed: 09/25/17 Follow-up Location: in office Interview Reason: routine follow up Regulatory Law Specialist: [employer] Name: Protecta VR Model: [id number] Serial #: [id number] Implant Date: 04/29/13 Year(s): 4 Implant Physician: Dr. Jose Murphy Patient Characteristics Atrial Indication: Pa roxysmal atrial fibrillation Ventricular Indication: Nonsustained VT Patient Substrate: Nonischemic cardiomyopathy (dilated) Ejection fraction %: 20 to 24 (12/25/2016) By: Echo Implant DFT: 18J Underlyin g rhythm: Sinus rhythm Pacemaker Dependent: No Device Characteristics Device: Single Chamber Type: Implantable defibrillator Remote Follow-Up: No Device Physical Exam Yes Incision well healed Leads Le ad #1 Regulatory Law Specialist Lead 1: luma-idtronic Model Lead 1: 5076 Serial# Lead 1: [id number] Date Implanted Lead 1: 09/03/04 Position Lead 1: RV Additional Details: pace/sense lead Lead #2 Regulatory Law Specialist Lead 2: Bevvy Model Lead 2: 6943 Serial# Lead 2: [id number] Date Implanted Lead 2: 11/18/00 Position Lead 2: RV Diagnostics Pacing % RV Pacin.1 Arrhythmias VF Episodes: 0 Fast VT Episodes: 0 Slow VT Epi sodes: 0 Non-Sust Episodes: 0 Measurements Battery Voltage (V): 3.07 Charge Time (Sec): 10.2 EMILIE Voltage: 2.63 RV Measurements Signal Amplitude (mV): 8.0 Impedance (Ohms): 399 Threshold Voltage: 1.0 @ PW(ms): 0.4 Shock Impedance (Ohms): 61 Tachy Settings Tachyarrhythmia Detection Ventricular Fibrillation Detect Rate: 222 bpm Slower VT Detect Rate: 182 bpm Tachyarrhythmia Therapies Ventricular Fib rillation Therapy: Shock therapy Initial shock: 25 Joules Final shock: 35 Joules. Slow Ventricular Tachycardia Therapies: Antitachycardia pacing and shock therapy Initial shock: 25 Joules Final shock: 3 5 Joules. Kieran Settings Pacemaker Mode: VVI Base Rate: 40 bpm Max Sensor Rate: 120 bpm Billing Codes ICD Device Billing: ICD Dev Prog Eval, Single Assessment AND Plan Problems 1. AICD (automatic cardioverter/defibrillator) present Z95.810 2. Chronic systolic congestive heart failure I50.22 3. Syncope R55 4. CAD (coronary artery disease) I25.10 mild 5. Cardiomyopathy, unspecified type I42.9 10/04/17 1315 <Electronically signed by Kim Pickard > Date Kim Pickard 10/06/17 1216<Electronically signed by Gurdeep weinstein MD> Cosigner Signature: Date (if applicable) Gurdeep Huang MD CC: 11-Sep-2017 Cardiology Visit Report Result: Comments: See Note; NOTES: [facility] [address] [place] [address] OFFICE VISIT Date of Service: 09/11/17 MR#: [id number] Acct: [id number] Name: IRIS ARRIAGA Rep #: [id number] : 1940 Provider: Gurdeep Huang MD Age/Sex: 77/F Location: [facility] [place] Status: Signed HPI 6 M FU: Details: IRIS ARRIAGA, is a 77 F who presents to the office today for for out patient cardiovascular follow-up of her history of underlying mitral valve disorder status post mitral valve replacement-bioprosthetic, non-CAD related cardiomyopathy, chronic systolic CHF, paroxysmal a trial and ventricular tachycardia dysrhythmias, status post ICD placement, CAD (minimal to mild), and hyperlipidemia. Since her last visit she states her main concern is that she was diagnosed, in Decem morgan of this year, with DVT. She states that she was evaluated for such at [facility]. During this time she does not believe she had any acute cardiovascular issues or concerns. She st ates overall she has had no new chest discomfort. She has had no acute change in her respiratory status with acute orthopnea or PND. She has remained without any obvious significant edema of the lower e xtremities. There has been no near syncope, syncope, or ICD discharge. She had her evaluation with her PCP earlier today. She had an ECG performed at that time. It appeared she was in sinus rhythm/sinu s arrhythmia with a leftward axis as well as a nonspecific IVCD. As you may recall her original open heart surgery performed procedure was performed at [facility]. At that time she had severe MR with myxomato us anterior leaflet and underwent mitral valve replacement with a 31 mm [employer] [facility] epic porcine valve and closure of the left atrial appendage. She continues to be followed at [facility] at this time by the structural heart disease team for consideration for possible future percutaneous mitral valve intervention. Intake Vital Signs09/11/17 Height 5 ft 11 in 09/11/17 Weight: 177 lb 09/11/17 Body M ass Index (BMI) 24.7 09/11/17 Blood Pressure 92/56 Intake Visit Reasons: 6 M FU Allergies levofloxacin [Levofloxacin] Allergy (Verified 09/11/17 13:43) Hives warfarin [From Coumadin] Allergy (Verifie d 09/11/17 13:43) Other torsemide [From Demadex] Adverse Reaction (Intermediate, Verified 09/11/17 13:43) Rash Medications Amitriptyline HCl 50 mg PO QHS PRN 07/22/15 [History Confirmed 09/11/17] Lev othyroxine [Synthroid] 88 mcg PO DAILY #0 07/26/15 [Rx Confirmed 09/11/17] Aspirin [Aspirin, Baby] 81 mg PO DAILY@0800 08/09/15 [History Confirmed 09/11/17] Multivitamins,Therapeutic [Multivitamin] 1 ta b PO DAILY 11/16/15 [History Confirmed 09/11/17] Cholecalciferol (Vitamin D3) [Vitamin D3] 2,000 unit PO DAILY 03/31/17 [History Confirmed 09/11/17] Loratadine [Claritin] 10 mg PO DAILY 03/31/17 [Histor y Confirmed 09/11/17] citalopram 20 mg tablet 20 mg PO QDAY 07/25/17 [History Confirmed 09/11/17] albuterol sulfate HFA 90 mcg/actuation aerosol inhaler 2 puff INHALATION Q6H 09/10/17 [History Confirmed 09/11/17] carvedilol 6.25 mg tablet 6.25 mg PO BID 09/10/17 [History Confirmed 09/11/17] lubiprostone 8 mcg capsule 8 mcg PO QDAY cap 09/10/17 [History Confirmed 09/11/17] apixaban 5 mg tablet 5 mg PO BID tab 09/11/17 [History Confirmed 09/11/17] furosemide 40 mg tablet 20 mg PO BID tab 09/11/17 [History Confirmed 09/11/17] gabapentin 100 mg capsule 100 mg PO BID PRN 09/11/17 [History Confirmed 09/11] hydrocortisone 5 mg tablet 5 mg PO QDAY tab 09/11/17 [History Confirmed 09/11/17] metolazone 5 mg tablet 5 mg PO .COMPLEX 09/11/17 [History Confirmed 09/11/17] mometasone-formoterol HFA 100 mcg-5 m cg/actuation aerosol inhaler 2 puff INHALATION BID PRN 09/11/17 [History Confirmed 09/11/17] pravastatin 40 mg tablet 40 mg PO QHS tab 09/11/17 [History Confirmed 09/11/17] [facility] Medical History (Revi ewed 09/11/17 @ 13:50 by Peace Maldonado) Thrombophlebitis of left internal iliac vein (Acute) Bilateral carpal tunnel syndrome (Resolved) cataract surgery (Resolved) Menopausal osteoporosis (Chronic) Myalgia (Chronic) Renal insufficiency (Acute) Balance disorder (Chronic) Gait abnormality (Chronic) UTI symptoms (Acute) Memory impairment (Chronic) Prediabetes (Chronic) Stroke (Chronic) Nonrheumatic mitral (valve) prolapse (Resolved) Hyperlipemia (Chronic) A-fib (Chronic) Cardiac dysrhythmia, unspecified (Acute) CHF (congestive heart failure) (Chronic) Heart palpitations (Acute) Heart valve replace d by other means (Resolved) Long-term use of high-risk medication (Chronic) Atherosclerotic heart disease of [place]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 with angina pectoris (Chronic) Tendinitis, calcific, shoulder (Acute) Weakness (Chronic) Rotator cuff tendonitis (Acute) Syncope (Acute) Cervicalgia (Acute) 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) Cervi courtney radiculopathy (Chronic) Abdominal pain (Acute) Bilateral leg edema (Acute) DVT of lower extremity, bilateral (Acute) Hypokalemia (Acute) Restrictive lung disease (Chronic) Dyspnea on exertion (Chron ic) Sleep-related breathing disorder (Chronic) URMILA (obstructive sleep apnea) (Chronic) CAD (coronary artery disease) (Chronic) AICD (automatic cardioverter/defibrillator) present (Chronic) Arrhythmia, v entricular (Chronic) Hypothyroidism (Chronic) 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) Pulmonary HTN (Chronic) Cardiomyopathy (Chronic) Orthostatic hypotension (Acute) Adrenal co rtex insufficiency (Chronic) Pneumonia (Acute) Surgical History History of bilateral knee replacement (Resolved) History of hysterectomy (Resolved) His tory of bilateral hip replacements (Resolved) S/P implantation of automatic cardioverter/defibrillator (AICD) (Resolved) Family History Father CVA (cere bral vascular accident) Mother Cancer bone Sister Cancer bone Diabetes Social History Smoking Status: Never smoker second hand exposure: No alcohol intake: never substance use type: does not use ROS Const Const: Negative for fatigue, weakness, weight gain, weight loss, frequent falls or excessive sweating Eyes Eyes: Negative for change in vision, blurry vision or transient loss of vision ENT ENT: Negative for dizziness, Positive for balance problems (ambulates with cane) Cardio Chest Pain: No Palpitations: Positive for No Edema: Bilateral (slight,Rt>Lt) Muscle aches with walking: N one Resp Respiratory: Positive for SOB with activity (breathing at baseline, noted mostly with stairs and incline); negative for SOB at rest GI GI: Negative vomiting or vomiting blood/hematemesis : Negative for hematuria Musc Musc: Positive for balance problems (ambulates with cane); negative for muscle aches/ myalgia, muscle weakness or joint pain Skin Skin: Negative non-healing lesions or rash Neuro Neuro: Negative for weakness, Negative for blurry vision, Negative for dizziness, Negative for lightheadedness, Negative for frequent falls, Negative for orthostatic symptoms Ran Hematologic/Lymp hatic: Negative for easy bleeding Endo Endo: Negative for fatigue or excessive sweating Psych Psych: Negative for anxiety or depression Allergy Allergy/Immunology: Negative for hives, Negative for rash Cardiology Exam Const Appearance: cooperative, healthy appearing, comfortable, no acute distress, well developed and well groomed Nutritional Appearance: average body habitus Orientation: alert, awake and oriented x3 Head Head: normal to inspection, normocephalic and atraumatic Ears: hearing grossly normal bilaterally Nose: external nose normal Mouth: oral mucosae normal Teeth and gingiva: fair dent ition Eyes General: appearance normal, both eyes and all related structures Eyelids: eyelids normal Conjunctivae: conjunctivae normal Pupils: PERRL EOM: EOM intact bilaterally Neck Neck: normal visual i nspection and full ROM Carotids: normal carotid upstroke Chest Chest inspection: normal inspection of the chest and symmetric chest movement Auscultation: Bilateral: Clear to Auscultation Cardio Palpati on: normal PMI Rate: regular rate Rhythm: regular rhythm and ectopic beats Heart sounds: S1 normal and S2 normal GI GI: normal to inspection, soft, no hepatosplenomegaly and bowel sounds present Neuro G eneral: alert, awake and oriented x3 Skin Skin: no rashes or lesions noted Extremities Pulses: Normal: Right Radial Pulse, Left Radial Pulse Lower Extremity Edema: None: Bilateral Psych Psychological: n ormal affect Assessment AND Plan 1. 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 She has un dergone surgical repair/replacement as noted above. She is continuing to be followed locally and at [facility] for her mitral valve disease process. 2. S/P MVR (mitral valve replacement) Z95.2 Plan Again she has undergone surgical replacement as noted above. Again she continues to be followed at [facility] for her mitral valve disease process. There have been concerns over time that her mitral valve issues may dania d to the need for an attempt at percutaneous valvular repair/replacement as opposed to a repeat open surgical repair/replacement. 3. Cardiomyopathy, unspecified type I42.9 Plan She does have a history of an underlying cardiomyopathy. This is thought to be non-CAD related. At the moment she appears without any acute symptoms of CHF on top of her chronic systolic CHF mediated issues. She will continue to monitor her symptoms, her weight, and notify the office and to report to the hospital as needed. In the meantime she will continue medical management. 4. Chronic systolic congestive heart failure I 50.22 Plan She does have a history of chronic systolic CHF. At the moment she appears to be stable with respect to her symptoms and volume status. She will continue her current medical management and fo llow-up. 5. Cardiac dysrhythmia, unspecified I49.9 Plan She does have a history of paroxysmal atrial and ventricular tachycardia dysrhythmias. She appears without acute symptoms at this time. She will continue her current medical management. 6. S/P implantation of automatic cardioverter/defibrillator (AICD) Z95.810 Plan She does have an ICD in place. It has been functioning appropriately. She will c ontinue to be followed. 7. Hyperlipidemia, unspecified hyperlipidemia type E78.5 Plan She does have a history of hyperlipidemia. She will continue medical management with her lipid-lowering therapy. 8 . CAD (coronary artery disease) I25.10 mild Plan She does have a history of CAD. In the past this was thought to be noncontributing to her underlying cardiomyopathy. However she does need to continue m edical management and follow-up as deemed appropriate. 9. Long-term use of high- risk medication Z79.899 Plan She is on long-term medication that does need to be followed. This includes agent such as of her lipid-lowering therapy. Plan Detail Additional Comments She does have a history of DVT. She continues 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 therapy at this time. Overall, she will continue medical management. She will h ave future outpatient follow-up. She is due to see her speech instructor at [facility] in October of this year. Thank you for allowing me to participate in the care of your patient. Please don't hesitate to call if any issues arise. This note was generated using a voice recognition system and there may be incorrect words, spelling or punctuation that were not noted when reviewing the office note prior to saving. Follow Up 6 Months (PFM (6-9 months)) Coding Level of Care Code Off vis,est,level 3 Diagnoses Nonrheumatic mitral (valve) prolapse I34.1 S/P MVR (mitral valve replacement) Z95.2 Cardiomyopathy, unspe cified type I42.9 Cardiomyopathy type: unspecified Chronic systolic congestive heart failure I50.22 Congestive heart failure type: systolic Congestive heart failure chronicity: chronic Cardiac dysrhythm ia, unspecified I49.9 S/P implantation of automatic cardioverter/defibrillator (AICD) Z95.810 Hyperlipidemia, unspecified hyperlipidemia type E78.5 Hyperlipidemia type: unspecified CAD (coronary artery disease) I25.10 Coronary Disease-Associated Artery/Lesion type: [place] artery Long-term use of high-risk medication Z79.899 Coding Level of Care Code Off vis,est,level 3 Diagnoses Nonrheumatic mitral (valve) prolapse I34.1 S/P MVR (mitral valve replacement) Z95.2 Cardiomyopathy, unspecified type I42.9 Cardiomyopathy type: unspecified Chronic systolic congestive heart failure I50.22 Congestive heart failure type: systolic Congestive heart failure chronicity: chronic Cardiac dysrhythmia, unspecified I49.9 S/P implantation of automatic cardioverter/defibrillator (AICD) Z95.810 Hyperlipidemia, unspec ified hyperlipidemia type E78.5 Hyperlipidemia type: unspecified CAD (coronary artery disease) I25.10 Coronary Disease-Associated Artery/Lesion type: [place] artery Long-term use of high-risk medication Z79.899 09/11/17 1716 <Electronically signed by Gurdeep Huang MD> Date Gurdeep Huang MD Cosigner Signature: Date ___ (if applicable) CC: Minerva Vergara MD 28-Jul-2017 Venous Duplex Lower Extremity Result: Comments: See Note; NOTES: [facility] Cardiovascular Services [address] [place] [address] Venous Duplex US, Unilateral 07/28/17 0942 MR#: [id number] Acct: [id number] Name: IRIS HOU Rep #: [id number] : 1940 77 From: Alejandro Armendariz MD Attending Dr: Minerva Vergara MD Status: REG I Ordering Dr: Minerva Vergara MD Date: 07/28/17 Location: CVS Sex: F C Admitted: Reason For Study: LEG PAIN AND SWELLING RIGHT LEFT CFV is compressible, spontaneous, phasic, Acute deep vein thrombosis is noted in the competent and demonstrates normal left common femoral vein. au gmentation. Acute deep vein thrombosis is noted in the Procedure left femoral vein. Exam performed in department. Acute deep vein thrombosis is noted in the A preliminary report was called and/or faxed left popliteal vein. to Dr. Vergara. Acute deep vein thrombosis is noted in the left peroneal vein. PTV is compressible. Acute deep vein thrombosis noted in the Gastroc veins GSV absent. Interpretation Summary Acute deep venous thrombosis left common femoral, femoral, popliteal, peroneal and gastrocnemius veins. Left great saphenous vein surgically absent. Normal flow pattern right common femoral vei n. Ordering Physician: Minerva Vergara Performed By: Sheridan Acuna RVT 07/28/171751 Date Alejandro Armendariz MD CC: Minerva Vergara MD Date Dictated: 07/28/1742 Date Transcribed: 07/28/171751 [employer] Operator: Signed 28-Jul-2017 CT ANGIO ABD AND PEL W/O AND W/DYE Result: Comments: See Note; NOTES: [facility] Imaging Services [address] [place] [address] CT ANGIO ABD AND PEL W/O AND W/DYE MR#: [id number] Acct: [id number] Name: IRIS ARRIAGA Rep #: [id number] : 1940 F 77 From: Apolinar Ansari DO PCP: Minerva Vergara MD Status: REG CLI Study: CT ANGIO ABD AND PEL W/O AND W/DYE Date of Exam: 07/28/17 Exam# [id number] Ordering Dr: Minerva Child i, MD STUDY: CT ABDOMEN AND PELVIS WITH CONTRAST REASON FOR EXAM: Female, 77 years old. IVC clot, left leg swelling RADIATION DOSAGE (If Supplied By Facility): CTDIvol = ( 23.87 ) mGy, DLP = ( 3.85 ) mGycm TECHNIQUE: Transaxial images were obtained from the dome of the diaphragm to the symphysis pubis without oral contrast. 100 ml of Isovue 370 contrast was administered. Sagittal and tina nal images were reconstructed. Individualized dose optimization techniques were used for this CT. COMPARISON: None. FINDINGS: There is a 4 mm nodule at the right l deepa base. The heart is enlarged. Postoperative changes of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 bypass graft are visualized. There is a cardiac pacer wire present. There is hepatic steatosis. A cyst is seen at the dome of t he liver. There is focal fatty infiltration adjacent to the falciform ligament. The gallbladder wall appears mildly thickened. Normal spleen. Normal pancreas. Normal bilateral adrenal glands. Normal r ight kidney. There is a 2.6 cm cyst within the mid to upper pole of the left kidney. There is a small hiatal hernia. Normal small intestine. There are multiple colonic diverticula consistent with diver ticulosis. The appendix is visualized and appears normal. Normal abdominal aorta. There is an IVC filter in place. There is borderline retroperitoneal lymphadenopathy with enlarged nodes no greater anup n 10mm in the short axis diameter. There is relative expansion of the left external iliac vein with some surrounding fat stranding. Normal urinary bladder. There is artifact limiting evaluation of the pelvis from bilateral total hip arthroplasties. Normal abdominal wall. There are diffuse degenerative changes of the visualized lumbar spine. CT /CT ANGIO ABD AND PEL W/O AND W/DYE IMPRESSION: There is relative expansion of the left internal iliac vein with some surrounding fat stranding, which may represent acute thrombus. An IVC filter is in place. No bowel obstruction. Question mild gallbladder wall thickening. Additional findings, as detailed above. Electronically Signed: Apolinar Ansari DO at 13:12 EST Tel , Service support , CC: Minerva Vergara MD [employer] Operator: Signed 19-Feb-2017 6 Minute Walk Test Result: Comments: See Note; NOTES: [facility] Pulmonary Services/Neurology [address] [place] [address] MR#: [id number] Acct: [id number] Name: IRIS ARRIAGA Rep #: [id number] : 1940 77 From: Jeremie Avendano MD Referring Dr: Bruno Barcenas D.O. Date: Ordering Dr: Sex: F C Location: PSN PSN 6 Minute Walk Test - 6 Minute Walk Test 6 Minute Walk Test: 6 Minute Walk Test PS N:6-Minute Walk Test Start: 02/19/17 12:50 Freq: Status: Active Document 02/19/17 12:50 FR (Rec: 02/19/17 12:53 FR [id number]) 6 Minute Walk Test Date Performed 02/19/17 Time Performed 12:30 Height 1.8 m We ight: 79.379 kg Weight in Pounds 175.[address]: DR. BARCENAS Assistive device used: None Pre-test Oxygen Delivery Method Room Air Pulse Ox 99 Pulse Rate (beats/min) 83 Dyspnea Ernst Scale (0-10) 0 E xertion Ernst Scale (6-20) 6 1st minute Oxygen Delivery Method Room Air Pulse Ox 98 Pulse Rate (beats/min) 85 2nd minute Oxygen Delivery Method Room Air Pulse Ox 94 Pulse Rate (beats/min) 87 3rd minute O xygen Delivery Method Room Air Pulse Ox 96 Pulse Rate (beats/min) 84 4th minute Oxygen Delivery Method Room Air Pulse Ox 94 Pulse Rate (beats/min) 87 5th minute Oxygen Delivery Method Room Air Pulse Ox 90 Pulse Rate (beats/min) 86 6th minute Oxygen Delivery Method Room Air Pulse Ox 98 Pulse Rate (beats/min) 89 Dyspnea Ernst Scale (0-10) 3 Exertion Ernst Scale (6-20) 9 Post-test Oxygen Delivery Method Ro om Air Pulse Ox 96 Pulse Rate (beats/min) 88 Full Laps Walked 8 Partial Lap, Number of Tiles Walked 101 Total Distance Walked (ft) 573 - Interpretation Interpretation: The patient was able to ambula te only 573 feet over the course of 6 minutes on room air with no assistive devices or breaks. The patient did experience significant desaturation from a baseline of 99% to as low as 90% with ambulation . No significant tachycardia was noted during testing. These findings are consistent with a respiratory limitation to exercise tolerance. - Recommendations Recommendations: No supplemental oxygen is indicated at this time, but patient will need to be followed closely. 02/19/17 1558 <Electronically signed by Jeremie Avendano MD> Date Abhi Avendano MD CC: Date Dictated: 02/19/171552 Date Transcribed: 02/19/171552 [employer] Operator: Jeremie Avendano Signed 03-Jan-2017 Abdomen/Pelvis WITH Contrast Result: Comments: See Note; NOTES: [facility] Imaging Services [address] [place] [address] Verdana 4d Abdomen/Pelvis WITH Contrast MR#: [id number] Acct: [id number] Name: JARON ARRIAGA Rep #: [id number] : 1940 F 76 From: Ed Fink MD PCP: Minerva Vergara MD Status: REG CLI Study: Abdomen/Pelvis WITH Contrast Date of Exam: 01/03/17 Exam# [id number] Ordering Dr: Minerva Bartlett MD STUDY: CT ABDOMEN AND PELVIS WITH CONTRAST REASON FOR EXAM: Female, 76 years old. Lower abdominal pain. RADIATION DOSAGE (If Supplied By Facility): CTDIvol = ( 39.00 ) mGy, DLP = ( 2295 .38 ) mGycm TECHNIQUE: Transaxial images were obtained from the dome of the diaphragm to the symphysis pubis with oral contrast. 100ML ml of Isovue 300 contrast was administered. Sagittal and coronal i mages were reconstructed. Individualized dose optimization techniques were used for this CT. COMPARISON: Comparison is made with prior study dated December 02, 2016. FINDINGS: Tiny bilateral pleural effusions left worse than right with the mild basilar atelectasis. Mild cardiomegaly. Coronary artery calcification. Stable 2.4 cm cyst in the anterior aspect of the do me of the right lobe of the liver. A tiny cyst is also seen in the mid medial portion of the right lobe. Findings suggest some mild thickening of the gallbladder wall with sludge or tiny gallstones with in the lumen. Small amount of perisplenic fluid. Minimal perihepatic fluid. Normal pancreas. Normal bilateral adrenal glands. Normal right kidney. Stable 3.4 cm cyst in the lateral upper portion of th e left kidney. Normal visualized stomach. Normal small intestine. Normal colon. The appendix is visualized and appears normal. A small amount of fluid is seen in the right mid and lower abdomen. A smal l amount of fluid is also seen in the pelvis. Normal abdominal aorta. There is an IVC filter in place. There is borderline retroperitoneal lymphadenopathy with enlarged nodes no greater than 10mm in th e short axis diameter. Normal urinary bladder. There is absence of the uterus consistent with a prior hysterectomy. Normal abdominal wall. There are degenerative changes of the visualized lumbar spine . The patient is status post bilateral hip replacement. CT/Abdomen/Pelvis WITH Contrast IMPRESSION: Stable appearance of the liver with a small c ysts. Small bilateral pleural effusions left slightly greater than right with underlying atelectasis. Mild gallbladder wall thickening and possible sludge or tiny gallstones within the gallbladder lumen . Small amount of ascites. Electronically Signed: Ed Fink MD at 13:03 EDT Tel [phone], Service support , CC: Minerva Vergara MD [employer] Operator: Signed 01-Jan-2017 Pulmonary Function Report Comp Result: Comments: See Note; NOTES: [facility] Pulmonary Services/Neurology [address] [place] [address] Pulmonary Function Test (Comp) MR#: [id number] Acct: [id number] Name: ETHELCATHLEEN BLANCO Tucker Rep #: [id number] : 1940 76 From: Bruno Barcenas DO Referring Dr: Minerva Vergara MD Status: REG CLI Ordering Dr: Minerva Vergara MD Date: 12/31/16 Location: [facility] Sex: F C DATE OF SERVICE: 12/10 INTRODUCTION: The patient is a 76-year-old female currently being seen by Dr. Vergara that presents for pulmonary function testing secondary to a diagnosis of shortness of breath. Resp iratory therapy did make note that the patient had difficulty performing post- bronchodilator spirometry. In addition, she had difficulty in performing maneuvers pertinent to obtaining plethysmography an d DLCO. Bronchodilators were used during testing. INTERPRETATION: Forced expiration spirometry demonstrates no evidence of a large airways obstructive ventilatory defect. There was no significant respo nse to aerosolized bronchodilators, based on strict ATS criteria. Spirograms are of good quality and plateau normally. The respiratory flow volume loop reveals decreased expiratory flow rates at high zaynab ng volumes consistent with small airways obstruction. Body plethysmography was performed and reveals symmetrically reduced lung volumes. The patient's TLC was noted to be 3.26 L, 54% of predicted, indic ative of a severe restrictive ventilatory defect. Diffusing capacity by single breath CO is severely reduced at 32% of predicted. When compared to previous pulmonary function studies from January 2015, the re has been a 35% reduction in the patient's FEV1, a 23% reduction in TLC and a 24% reduction in RV. IMPRESSION: This study was found to be a poor quality due to a combination of testing technique and patient effort. Results should be reviewed with caution. This test did demonstrate the presence of a severe restrictive ventilatory defect with a symmetric reduction in diffusing capacity. There has bee n worsening since the patient's last study. Clinical correlation is recommended. DO Lisseth Valdivia C: Referring Provider . T: [facility] JOB: [id number] 01/01/17 1057 <Electronically signed by Christian Barcenas DO> Date Bruno Barcenas DO CC: Minerva Vergara MD; Bruno Barcenas D.O. Date Dictated: 12/31/161600 Date Transcribed: 12/31/16 160 [employer] Operator: Signed 26-Dec-2016 Echocardiogram Complete Result: Comments: See Note; NOTES: [facility] Cardiovascular Services [address] [place] [address] Echo Complete 12/25/16 1357 MR#: [id number] Acct: [id number] Name: IRIS ARRIAGA Rep #: [id number] : 1940 76 From: Gurdeep Huang MD Attending Dr: Peace Miller Status: REG CLI Ordering Dr: Peace Miller Date: 12/25/16 Location: [facility] Sex: F C Admitted: R oziel For Study: ASHD Procedure This was a 2D Doppler, Color Flow transthoracic echocardiogram. The exam was of fair technical quality due to diminished acoustic windows. The study was technically diff icult. Contrast injection was performed. Exam performed in department. Left Ventricle Mild to moderate left ventricular dilatation. Severe segmental systolic dysfunction (see wall motion). The estimate d ejection fraction is 20 %. Right Ventricle Moderately dilated right ventricle. ICD or pacer leads identified within the right ventricle. Moderate global right ventricular systolic dysfunction. Atria The left atrium is moderately enlarged. The right atrium is moderately enlarged. ICD or pacer leads identified within the right atrium. No doppler evidence for ASD. Mitral Valve Stable apearing biopro sthetic mitral valve apparatus with 2D echocardiographic images c/w prosthetic valve leaflet thickening and partial restriction with spectral doppler c/w moderate mitral valve stenosis. Moderate (2+) tr ansvalvular insufficiency of the mitral valve. Tricuspid Valve Normal tricuspid valve. Moderate (2+) tricuspid valve insufficiency. Right ventricular systolic pressure estimated to be 41 mmHg. Aortic Valve Trisinus/trileaflet aortic valve. Normal aortic valve. Trivial aortic valve insufficiency. Pulmonic Valve Normal pulmonic valve. Trivial pulmonic valve insufficiency. Great Vessels Normal sized a ortic root. Calcified aortic root. Pericardium/Pleural No pericardial effusion. Medication 22 gauge I.V. with prn adaptor inserted into right arm. Definity0.4ml given slow IV push to enhance endocardi al definition. MMode/2D Measurements & Calculations LVIDd: 6.0 cm IVSd: 1.1 cm Ao root diam: 2.9 cm LVIDs: 5.5 cm LVPWd: 1.2 cm LA dimension: 4.2 cm RVDd: 3.8 cm FS: 7.7 % LAV(MOD-bp): 79.5 ml LA A4 area: 23.9 cm2 RA A4 area: 22.5 cm2 LAV(MOD-bp) Indexed: 38.7 ml/m2 LAV(MOD-sp2): 72.2 ml LAV(MOD-sp4): 71.4 ml Do ppler Measurements & Calculations MV E max shanice: 162.9 cm/sec MV V2 max: 190.1 cm/sec MV P1/2t max shanice: 165.1 cm/sec MV max P.5 mmHg MV P1/2t: 95.3 msec MV V2 mean: 99.0 cm/sec MV dec slope: 507.6 cm/sec2 MV mean P.9 mmHg MVA(P1/2t): 2.3 cm2 MV V2 VTI: 36.7 cm Ao V2 max: 72.9 cm/sec LV V1 max: 57.1 cm/sec PA V2 max: 58.9 cm/sec Ao max P.1 mmHg LV V1 max P.3 mmHg TR max shanice: 287.4 cm/sec TR max P.2 mmHg Interp retation Summary The study was technically difficult. Contrast injection was performed. Mild to moderate left ventricular dilatation. Severe segmental systolic dysfunction (see wall motion). The estima orville ejection fraction is 20 %. Moderately dilated right ventricle. Moderate global right ventricular systolic dysfunction. The left atrium is moderately enlarged. The right atrium is moderately enlarged . Stable apearing bioprosthetic mitral valve apparatus with 2D echocardiographic images c/w prosthetic valve leaflet thickening and partial restriction with spectral doppler c/w moderate mitral valve st enosis. Moderate (2+) transvalvular insufficiency of the mitral valve. Moderate (2+) tricuspid valve insufficiency. Trivial aortic valve insufficiency. Trivial pulmonic valve insufficiency. Calcified ao rtic root. Right ventricular systolic pressure estimated to be 41 mmHg. ICD or pacer leads identified within the right atrium ICD or pacer leads identified within the right ventricle. Comment: 2D echoca rdiographic images demonstrate a small mobile echodensity in the right atrium appearing associated with an ICD lead appearing c/w a small thrombus, although other etiologies of mobile mass lesions canno t be completely excluded. Ordering Physician: Peace Miller/Gurdeep Huang Referring Physic ernesto: Minerva Vergara M.D. Performed By: Prema Fiore RDCS 12/26/16906 Date Gurdeep Huang MD CC: Minerva Vergara MD; Peace Miller Date Dictated: 12/25/16 1357 Date Transcribed: 12/26/16 09 [employer] Operator: Signed 04-Dec-2016 Abd Inc Decub and/or Erect Result: Comments: See Note; NOTES: [facility] Imaging Services [address] [place] [address] Verdana 4d Abd Inc Decub and/or Erect MR#: [id number] Acct: [id number] Name: ARI ARRIAGA Rep #: [id number] : 1940 F 76 From: Mele Brown MD PCP: Minerva Vergara MD Status: REG CLI Study: Abd Inc Decub and/or Erect Date of Exam: 12/04/16 Exam# [id number] Ordering Dr: Anita Quiñonez DO STUDY: X-RAY - ABDOMEN/PELVIS REASON FOR EXAM: Female, 76 years old. Constipation. TECHNIQUE: AP supine and upright views of the abdomen and pelvis. COMPARISON: 10/31/2016. FINDINGS: Normal visualized lung bases. There is a moderate amount of colonic fecal material. No dilated loops of bowel or evidence for obstruction. There is no demonstrated free abdom inal air. The visualized liver, spleen and kidneys are grossly normal in size and morphology. IVC filter in typical location. Degenerative changes of the lumbar spine, levoconvex scoliosis. Bilateral h ip arthroplasties without gross acute abnormality. IMPRESSION: Moderate fecal retention. No evidence for obstruction. Electronically Signed: Mele Brown MD at 16:00 EDT Tel , Service support , RAD/Abd Inc Decub and/or Erect CC: Minerva Vergara MD; Ida Quiñonez DO [employer] Operator: Signed 04-Dec-2016 CTA Chest W/WO Contrast Result: Comments: See Note; NOTES: [facility] Imaging Services [address] [place] [address] [place] 4d CTA Chest W/WO Contrast MR#: [id number] Acct: [id number] Name: IRIS ARRIAGA Rep #: [id number] : 1940 F 76 From: Ed Fink MD PCP: Minerva Vergara MD Status: REG CLI Study: CTA Chest W/WO Contrast Date of Exam: 12/04/16 Exam# [id number] Ordering Dr: Ida Quiñonez DO STUDY: CTA CHEST REASON FOR EXAM: Female, 76 years old. 2-3 week history of shortness of breath. RADIATION DOSAGE (If Supplied By Facility): CTDIvol = ( 20.37 ) mGy, DLP = ( 646.77 ) mGycm TECHNIQ UE: The examination was performed with the intravenous administration of 100 ml of Isovue 300 contrast material. Post-processing of the angiographic images was performed, with multiplanar reformation an d 3D reconstruction. Individualized dose optimization techniques were used for this CT. COMPARISON: Comparison is made with prior chest radiograph dated October 31, 2016. ____ FINDINGS: Normal enhancement of the main pulmonary artery and right and left pulmonary arteries. Normal enhancement of the bilateral peripheral pulmonary arteries. There is no demonstrated pulmon ping embolism. Normal thoracic aorta and visualized great vessels. There is no demonstrated aortic dissection. Sternal cerclage wires and vascular clips are present from a prior sternotomy and coronar y artery bypass graft procedure (CABG). A left-sided dual-chamber pacemaker is seen. Calcification of the coronary arteries. There are visualized mediastinal lymph nodes, which are within normal size l imits, and with normal morphology. Normal hilar regions. Normal visualized trachea and bronchi. The lungs are well expanded. Mild degree of increased linear markings at the lung bases suggestive of bi basilar scarring. No acute infiltration is seen. Normal pleura. Normal chest wall structures. There are degenerative changes of thoracic spine. Small hiatal hernia. Left renal cyst. CT/CTA Chest W/WO Contrast IMPRESSION: There is no evidence of a pulmonary embolism. Findings suggestive of scarring at the lung bases. Electronically Signed: Megan Fink MD at 15:43 EDT Tel [phone], Service support , CC: Minerva Vergara MD; Ida Quiñonez DO [employer] Operator: Signed 03-Dec-2016 Venous Duplex Lower Extremity Result: Comments: See Note; NOTES: [facility] Cardiovascular Services [address] [address] Venous Duplex US - David Extrem 12/03/16 1553 MR#: [id number] Acct: [id number] Name: IRIS ARRIAGA Rep #: [id number] : 1940 76 From: Alejandro Armendariz MD Attending Dr: Alejandro Armendariz MD Status: REG CLI Ordering Dr: Alejandro Armendariz MD Date: 12/03/16 Location: [facility] Sex: F C Admitted: Reason For Study: pain RIGHT LEFT CFV is compressible, spontaneous, competent CFV is compressible, spontaneous, competent, and demonstrates pulsatile venous flow. and demonstrates pulsatile venou s flow. FV is compressible, spontaneous, competent FV is compressible, spontaneous, competent and demonstrates pulsatile venous flow. and demonstrates pulsatile venous flow. POP V is compressible, spont aneous, POP V is compressible, spontaneous, competent and demonstrates pulsatile venous competent and demonstrates pulsatile venous flow. flow. T/P Trunk is compressible. T/P Trunk is compressible. PTV is compressible. PTV is compressible. RT PerV is compressible. LT PerV is compressible. Soleus V is dilated and noncompressible. GSV is harvested. GSV is dilated anf noncompressible from the Soleus V is dilated and noncompressible. ankle to just above the knee. Varicose veins at the distal thigh are dilated and noncompressible. Procedure Exam performed in department. The exam was diagnostic. A prelimi nary report was called and/or faxed to Dr. Armendariz and Dr. Vergara. Pt to get appointment in AM. Interpretation Summary Acute deep venous thrombosis right soleus vein. Superficial thrombophlebitis right great saphenous vein. Acute deep venous thrombosis left soleus vein. Pulsitile proximal venous flow noted bilateral consistent with proximal venous hypertension-- clinical correlation would be appropria te. Ordering Physician: Alejandro Armendariz Performed By: Rm Ferro RVT 12/03/161849 Date Alejandro Armendariz MD CC: Minerva Vergara MD; Alejandro Armendariz MD Date Dictated: 12/03/16 1553 Da te Transcribed: 12/03/161849 [employer] Operator: Signed 02-Dec-2016 Abdomen without IV Contrast Result: Comments: See Note; NOTES: [facility] Imaging Services [address] [place] [address] Verd[place] 4d Abdomen without IV Contrast MR#: [id number] Acct: [id number] Name: CAMILA ARRIAGA Rep #: [id number] : 1940 F 76 From: Moses Chase MD PCP: Minerva Vergara MD Status: REG CLI Study: Abdomen without IV Contrast Date of Exam: 12/02/16 Exam# [id number] Ordering Dr: Minerva Broussard MD STUDY: CT ABDOMEN WITHOUT CONTRAST REASON FOR EXAM: Female, 76 years old. Acute abdominal pain. RADIATION DOSAGE (If Supplied By Facility): CTDIvol = ( 17.22 ) mGy, DLP = ( 603.29 ) m Gycm TECHNIQUE: Transaxial images were obtained without intravenous contrast, and oral contrast. Sagittal and coronal images were reconstructed. Individualized dose optimization techniques were used f or this CT. COMPARISON: None. FINDINGS: The lung bases are clear. The heart is slightly enlarged. A 2.4 cm cyst is seen at the dome of the liver. There are no dila orville intrahepatic biliary radicles. The gallbladder contains no stones but there is pericholecystic streakiness. The spleen and pancreas are normal. Both adrenals are normal. There is a 3.4 cm left genoveva l cyst. The right kidney is normal. There is no bowel distention or free intraperitoneal air and no acute appendicitis or diverticulitis. The abdominal wall is intact. A Shandra umbrella filter is in place but 4 of the struts are seen to project outside of the medial margin of the inferior vena cava. There is no indication of any hematoma around the IVC. The aorta is normal. There are small react ann lymph nodes in the retroperitoneum and in the retrocrural areas. There are degenerative changes involving the lumbosacral spine and a lumbar scoliosis with convexity to the left.. CT/Abdomen without IV Contrast IMPRESSION: A Shandra umbrella filter in place with at least 4 of the struts perforating the medial wall of the inferior vena ca va.. No hematoma in the retroperitoneum. Possible cholecystitis. A benign left renal cyst. A lumbar scoliosis with convexity to the left with degenerative changes involving the lower lumbosacral spin e. Electronically Signed: Depue BretonielBeba, at 7:27 EDT Tel , Service support , CC: Minerva Vergara MD [employer] Operator: Signed 31-Oct-2016 Abd Inc Decub and/or Erect Result: Comments: See Note; NOTES: [facility] Imaging Services [address] [place] [address] [place] 4d Abd Inc Decub and/or Erect MR#: [id number] Acct: [id number] Name: ARI ARRIAGA Rep #: [id number] : 1940 F 76 From: Ed Fink MD PCP: Minerva Vergara MD Status: REG CLI Study: Abd Inc Decub and/or Erect Date of Exam: 10/31/16 Exam# [id number] Ordering Dr: Minerva Vergara MD STUDY: X-RAY - ABDOMEN/PELVIS REASON FOR EXAM: Female, 76 years old. Lower abdominal pain. TECHNIQUE: AP supine and upright views of the abdomen and pelvis. COMPARISON: None. FINDINGS: Normal visualized lung bases. There is a moderate amount of colonic fecal material. There is no demonstrated free abdominal air. The visualized liver, spleen and kidn eys are grossly normal in size and morphology. A filter is seen within the inferior vena cava. Normal soft tissue structures. There are diffuse degenerative changes of the visualized lumbar spine. Levo scoliosis. The patient is status post bilateral hip replacements. RAD/Abd Inc Decub and/or Erect IMPRESSION: Moderate amount of fecal material se en in the colon. Electronically Signed: Ed Fink MD at 10:26 EDT Tel [phone], Service support [phone], CC: Minerva Vergara MD [employer] Operator: Signed 31-Oct-2016 Chest PA and Lateral Result: Comments: See Note; NOTES: [facility] Imaging Services [address] [place] [address] Ver[place] 4d Chest PA and Lateral MR#: [id number] Acct: [id number] Name: IRIS ARRIAGA p #: [id number] : 1940 F 76 From: Ed Fink MD PCP: Minerva Vergara MD Status: REG CLI Study: Chest PA and Lateral Date of Exam: 10/31/16 Exam# [id number] Ordering Dr: Minerva Vergara MD S TUDY: X-RAY CHEST REASON FOR EXAM: Female, 76 years old. Cough. TECHNIQUE: PA and lateral views of the chest. COMPARISON: Comparison is made with prior study dated August 09, 2015. FINDINGS: Stable mild increased markings at the lung bases suggest mild scarring slightly worse on the left side. There is no demonstrated pleural abnormality. Sternal cerclage wi res and vascular clips are present from a prior sternotomy and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 bypass graft procedure (CABG). A left-sided dual-chamber pacemaker is seen. Normal mediastinum and juana. Normal visualized pulmonary arteries. There is atherosclerotic tortuosity of the aortic arch and descending thoracic aorta. There is demineralization of the osseous structures. Normal visualized ribs, clavicles, and alexus ulders. There is no demonstrated abnormality of the visualized soft tissue structures of the upper abdomen. RAD/Chest PA and Lateral IMPRESSION: Stable mild degree of increased markings at the lung bases slightly worse on the left side suggestive of scarring. Electronically Signed: Ed Fink MD at 10:27 EDT Tel [phone], Service support [phone], CC: Minerva Vergara MD [employer] Operator: Signed 26-Sep-2016 Dexa Bone Density Study (HP) Result: Comments: See Note; NOTES: [facility] Imaging Services [address] [place] [address] [place] 4d Dexa Bone Density Study () MR#: [id number] Acct: [id number] Name: JARON ARRIAGA Rep #: [id number] : 1940 F 76 From: Ed Fink MD PCP: Minerva Vergara MD Status: REG CLI Study: Dexa Bone Density Study (HP) Date of Exam: 09/26/16 Exam# [id number] Ordering Dr: Minerva Bartlett MD STUDY: DUAL ENERGY X-RAY ABSORPTIOMETRY / DXA REASON FOR EXAM: Female, 76 years old. The patient is postmenopausal. TECHNIQUE: Bone Mineral Density (BMD) measurements of lumbar spine an d left forearm were obtained. The patient is status post bilateral hip replacement. COMPARISON: Comparison is made with prior study dated July 29, 2012. FINDING S: Lumbar Spine (L1-L4): g/cm2 (1.196) / T-score (0.3) / Z-score (2.0) Findings are suggestive of normal bone density with a low fracture risk. Left Forearm: g/cm2 (0.758) / T-score (-1.3) / Z-score ( 0.9) The T-Scores on the most recent prior examination were: Lumbar Spine (L1- L4): There has been worsening of bone density since the previous examination. HPBD/Dexa Bone Density Study (HP) IMPRESSION: The patient is considered osteopenic as outlined below according to World Jules Organization (WHO) criteria with a moderate fracture risk. The re has been worsening of bone density since the previous examination. Reference Information: The T-score is the number of standard deviations above or below the sta ndard which is normal for young adults at their peak bone mineral density. The World Health Organization (WHO) interprets the T-scores as follows: Above -1 Normal bone density Between -1 and -2.5 Osteo penia Equal to / or below -2.5 Osteoporosis As a practical clinical guideline, osteopenia may be graded as follows: Mild -1 through -1.5 Moderate -1.6 through -2.0 Severe -2.1 through -2.4 The Z-score is the number of standard deviations above or below age-matched controls. A Z- score of less than -1.5 would be considered abnormal. References: 1. NIH Osteoporosis and Related Bone Diseases http://www .osteo.org 2. International Society for Clinical Densitometry http://www.iscd.org 3. National Osteoporosis Foundation http://www.nof.org Electronically Signed: Ed Fink MD at 15:0 0 EST Tel [phone], Service support [phone], CC: Minerva Vergara MD [employer] Operator: Signed 26-Sep-2016 SCREENING MAMM (CAD), BILAT Result: Comments: See Note; NOTES: [facility] Imaging Services [address] [place] [address] Verdana 4d SCREENING MAMM (CAD), BILAT MR#: [id number] Acct: [id number] Name: CAMILA ARRIAGA Rep #: [id number] : 1940 F 76 From: Ed Fink MD PCP: Minerva Vergara MD Status: REG CLI Study: SCREENING MAMM (CAD), BILAT Date of Exam: 09/26/16 Exam# [id number] Ordering Dr: Minerva Child i, MD MAMMOGRAPHY - BILATERAL SCREENING REASON FOR EXAM: Female, 76 years old. Routine annual screening examination. PERTINENT HISTORY: Non- contributory. TECHNIQUE: Digital bilateral breast to mo (3D mammographic acquisition) in the CC and MLO projections. 2-D mediolateral oblique (MLO) and craniocaudad (CC) views of both breasts were obtained. CAD: Full Field Digital Mammography with Compute r Added Detection was performed. COMPARISON: Comparison is made with prior study dated July 09, 2012. FINDINGS: Breast Composition: There are scattered areas of fibroglandular density. There are no dominant masses or suspicious calcifications. A pacemaker battery pack is seen in the left axillary region. No other significant abnormalities are identified. The re has been no significant change since the prior study. HPBI/SCREENING MAMM (CAD), BILAT IMPRESSION: Stable bilateral screening mammogram. Yearl y follow-up mammogram recommended. (A) ASSESSMENT CATEGORY: BIRADS Category 1: Negative. A letter regarding these results will be sent to the patient by the facilit y within 30 days. Approximately 10% of breast cancers are not detected by mammography. A normal mammogram should not delay biopsy of a clinically suspicious abnormality. [id number] Electronically Signed: Ed Fink MD at 7:48 EST Tel [phone], Service support [phone], CC: Minerva Vergara MD [employer] Operator: Signed 09-Feb-2016 Operative Report Result: Comments: See Note; NOTES: [facility] Medical Records Department [address] [place] [address] Operative Report MR#: [id number] Acct: [id number] Name: CAMILA ARRIAGA Rep #: [id number] : 1940 76 From: Clifford Gifford MD PCP: Minerva Vergara MD Status: REG CLI DATE OF SERVICE: 01/30/2016 DATE OF PROCEDURE: January 30, 2016 PROCEDURE: Screening colono scopy. HISTORY OF PRESENT ILLNESS: A 76-year-old patient with no prior colonoscopy for screening exam. She has no symptoms. OUTPATIENT MEDICATIONS: Per chart. PROCEDURAL PREMEDICATIONS: Nonintu bated propofol based anesthesia via the anesthesia department. INSTRUMENT USED: Standard Olympus pediatric video colonoscope. FINDINGS: Scope was passed without difficulty to the cecum, identified by pitka's point's foot appearance, ileocecal valve and appendiceal orifice. Upon withdrawal of the scope, cecum negative. In the mid ascending, there was a 6 mm polyp biopsied off via cold biopsy forceps. R emainder of the ascending was negative, transverse negative, descending negative. Sigmoid scattered diverticulum, rectum negative, retroflex of the rectum negative. IMPRESSION: 1. Colonoscopy to the cecum in a prepped colon. 2. Scattered sigmoid diverticulum. 3. Mid ascending 6 mm polyp removed in entirety via cold biopsy forceps. RECOMMENDATIONS: Check histology and notify the patient. Kamrai Gifford MD T: [facility] JOB: [id number] 02/09/16 0706 <Electronically signed by Clifford Gifford MD> Date Clifford Gifford MD Cosign er Signature (If Indicated): Date CC: Clifford Gifford; Minerva Vergara MD Date Dictated: 01/30/16832 Date Transcribed: 01/30/16832 [employer] Operator: Signed 15-Nov-2015 Gallbladder Result: Comments: See Note; NOTES: [facility] Imaging Services [address] [place] [address] Verdana 4d Gallbladder MR#: [id number] Acct: [id number] Name: IRIS ARRIAGA Rep #: [id number] : 1940 F 75 From: Sofia Storey MD PCP: Minerva Vergara MD Status: [facility] Study: Gallbladder Date of Exam: 11/15/15 Exam# [id number] Ordering Dr: Jalil Nogueira MD STUDY: ULTRASOUND GALLBLADDER REASON FOR VISIT: Female, 75 years old. Elevated liver function test and lower abdominal pain. TECHNIQUE: Ultrasound evaluation of the gallbladder was performed with real-t alicia and static martinez-scale imaging. TECHNICAL QUALITY: Adequate. COMPARISON: None. FINDINGS: Gallbladder: Normal distended gallbladder. The gallbladder wall m easures 3 mm. There is a negative sonographic Carreno's sign. There is no pericholecystic fluid. There are no gallstones. Common Bile Duct (C.B.D.): The common bile duct measures 4 mm. IMPRESSION: Normal gallbladder ultrasound examination. Electronically Signed: Sofia Storey MD at 21:57 EDT , Service support [phone], F ax [phone] CC: Minerva Vergara MD; Jalil Nogueira MD [employer] Operator: Signed 15-Nov-2015 Abdomen/Pelvis WITH Contrast Result: Comments: See Note; NOTES: [facility] Imaging Services [address] [place] [address] Verdana 4d Abdomen/Pelvis WITH Contrast MR#: [id number] Acct: [id number] Name : IRIS ARRIAGA Rep #: [id number] : 1940 F 75 From: Sofia Storey MD PCP: Minerva Vergara MD Status: REG ER Study: Abdomen/Pelvis WITH Contrast Date of Exam: 11/15/15 Exam# [id number] Order ing Dr: Jalil Nogueira MD STUDY: CT ABDOMEN AND PELVIS WITH CONTRAST REASON FOR EXAM: Female, 75 years old. Abdominal pain for 3 days. History of IVC filter, mitral valve prolapse repair with pacem airam and bilateral hip replacement. RADIATION DOSAGE (If Supplied By Facility): CTDIvol = ( 17.78 ) mGy, DLP = ( 1633.44 ) mGycm TECHNIQUE: Transaxial images were obtained from the dome of the leah phragm to the symphysis pubis with oral contrast. 100 ml of Isovue 300 contrast was administered. Sagittal and coronal images were reconstructed. Individualized dose optimization techniques were use d for this CT. COMPARISON: None. FINDINGS: The visualized lung bases are unremarkable. Right ventricular pacemaker in good position. 2.2 x 1.5 cm simple cyst of the right liver dome. Multiple additional subcentimeter simple cysts. Probable a region of fatty replacement and a simple cyst juxtaposed the falciform ligament in the right liver. Normal gallbl adder and extrahepatic biliary system. Normal spleen. Normal pancreas. Normal bilateral adrenal glands. Normal size of the right kidney. Subcentimeter renal cysts. No hydronephrosis, renal or uret eral stones. Normal size of the left kidney. 3.3 cm simple cyst of the upper pole and additional subcentimeter simple cysts. No left hydronephrosis, renal or ureteral stones. Small hiatal hernia. Ot herwise, unremarkable nondistended stomach and duodenum. Normal small intestine. Diverticulosis of the colon without evidence of acute diverticulitis. There is non-visualization of the appendix. No rmal abdominal aorta. Inferior vena cava umbrella terminates below the level of the renal veins Normal retroperitoneum. Limited visualization of the pelvic floor secondary to artifact from the bilat eral hip replacements. Normal abdominal wall. Advanced degenerative disc and joint changes of the lower lumbar spine with levoscoliosis. Status post bilateral hip replacement. IMPRESSION: No acute abdominal or pelvic findings. Multiple hepatic cysts and fatty change adjacent to the falciform ligament. Renal cysts. No acute renal findings. Small hiatal hernia. Inferior vena cava umbrella. Advanced degenerative disc and joint changes of the lower lumbar spine with levoscoliosis. Status post bilateral hip replacement. Electronically Signed: Boston Storey MD at 20:10 EDT , Service support [phone], CC: Minerva Vergara MD; Jalil Nogueira MD [employer] Operator: Signed 31-Oct-2015 Cerv Spine 4 or 5 Views Result: Comments: See Note; NOTES: [facility] Imaging Services [address] [place] [address] Verdana 4d Cerv Spine 4 or 5 Views MR#: [id number] Acct: [id number] Name: IRIS WRAY Rep #: [id number] : 1940 F 75 From: Alexey Stephens MD PCP: Minerva Vergara MD Status: REG CLI Study: Cerv Spine 4 or 5 Views Date of Exam: 10/31/15 Exam# [id number] Ordering Dr: Tiffanie Corcoran DO STUDY: X-RAY - CERVICAL SPINE REASON FOR EXAM: Female, 75 years old. Neck pain and right-sided. Previous stroke. TECHNIQUE: 7 view(s) of the cervical spine were obtained. C OMPARISON: None FINDINGS: There are degenerative changes of the anterior atlantoaxial articulation. Normal odontoid process. Normal cervical lordosis. There is multi-level endplate spondylosis. There is multi-level degenerative disc disease with multilevel disc space narrowing. There is multi-level osseous foraminal stenosis. The soft tissue structures ar e unremarkable. Status post pacemaker and sternotomy IMPRESSION: Severe cervical spondylosis. Electronically Signed: Alexey Stephens MD, FACR a t 13:54 EDT , Service support [phone], RAD/Cerv Spine 4 or 5 Views IMPRESSION: Severe cervical spondylosis. Electronically Signed: Earl Stephens MD, FACR at 13:54 EDT , Service support [phone], CC: Tiffanie Saha DO; Minerva Vergara MD [employer] Operator: Signed 28-Sep-2015 PT D/C Summary (1) Result: Comments: See Note; NOTES: [facility] Physical Therapy [facility] [facility] [place], [place] [id number] Fax [facility] MR#: [id number] Acct: [id number] Name: IRIS ARRIAGA Rep #: [id number] : 1940 75 From: Kelvin Newman DPT, OCS, CSCS Referring : Nerissa Bhat Status: REG RCR Eval Date: Discharge Date: HP - PT D/C Summary It has been my pleasure to treat IRIS ARRIAGA under orders from Mert Raygoza, for the diagnosis of syncope, weakness for a total of 10 visit(s). Please see the following information for a summary of their discharge status. - Subjective Subjective: Just f/u with cardiac doctor in 6 months, no current treatment needed. Pt fe els better with balance and strength and can continue via silver sneakers. - Pain none Pain Intensity (Out of 10): N/A - Objective Objective/Function: FGA 24(same). Transfer needs UE from lo w chair. Steps reciprocal with one rail. SOT is 16 point improvement and WNL for age now. Good FW weight shift and normal YARIEL while ambulating. - Goals Goal 1:: Neurocom balance tests completed Goa l Progress: Goal Met Goal 2:: FGA to to diminish fall risk Goal Progress: Not Progressing Goal 3:: Exit chair without need for UE Goal Progress: Progressing Goal 4:: Feel 50% steadier and alexus w normal YARIEL with ambulation Goal Progress: Goal Met - Plan Plan: D/C pt to continue via HEP/Silver Sneakers and pool ex. - D/C Information Discharge Comments: Pt to continue via HEP/Silver sneak ers and pool ex. Much better Vestibular balance on SOT, more confident and feels can ex on her own vs continued PT. If there are questions or concerns regarding this patient's physical therapy, please feel free to call me at [phone]. Thank you for the referral of this patient. Sincerely, Kelvin Newman <Electronically signed by Kelvin Newman DPT, OCS, CSCS> 09/28/15 0944 CC: Minerva Vergara MD; Nerissa Bhat EBG Signed 24-Aug-2015 PT Communication Result: Comments: See Note; NOTES: [facility] [address] [place] [address]. [address] [place] [address] Fax REHABILITATION SE [facility]ICES PROGRESS NOTE MR#: [id number] Acct: [id number] Name: IRIS ARRIAGA Rep #: [id number] : 1940 75 From: Kelvin Newman Referring : Nerissa Bhat Status: REG RCR Insurance: [facility] MEDIC[facility] PPO ANTHEM PT Communication Note 08/24/[address] Nerissa Bhat M and Dr. Vergara, Thank you for the referral of Iris Arriaga to [facility] for physical therapy and balance assessment. I have enclosed a copy of the results for your review. Basically, she scored low on the vestibular portion of the Sensory Organization Test. She also has diminished forward weigh t shift on the Limits of Stability test. With these results in mind, I plan to see her 2x/week for 4 weeks to work on vestibular balance , FW weight shift and strengthening of body and functionally. I f there is any questions regarding her balance test or PT, please feel free to call me at the office. Thank you again. ebg Sincerely, Kelvin Newman Contact Information 08/24/15 1342 <Electronically signed by Kelvin Newman > Date Kelvin Newman Cosigner Signature (if applicable): Da david CC: Minerva Vergara MD; Nerissa Bhat Signed For Medicare only, by signing this I certify the plan of care. Physicians Signature Date 17-Aug-2015 Inital Evaluation - PT Result: Comments: See Note; NOTES: [facility] Physical Therapy [address] [place] [address] Fax REHABILITATION SE RVICES INITIAL EVALUATION MR#: [id number] Acct: [id number] Name: IRIS ARRIAGA Rep #: [id number] : 1940 75 From: Kelvin Newman Referring : Nerissa Bhat Status: REG RCR Insuranc e: [employer] MEDICARE PPO Eval Date: ANTHEM Patient's Visit Information IRIS ARRIAGA is a 75 year old F, referred to Physical Therapy by Mert Raygoza,, with a diagnosis of syncope, we akness. Date of Evaluation: 08/16/15 Physical Therapist: Kelvin Newman - Visit Plan Frequency: 2x /Week Duration: 4-6 Weeks - Subjective Fell at [facility] in May and hurt head. Then p assed out shortly thereafter went to ER and was dehydrated. Went to Dr. vergara a couple weeks ago and was sent to ER for low blood pressure. Spent a few days in hospital and found that the pig valve is thickening. Will go to [facility] later in month as Dr. Huang sent her there. Had heart meds changed when in the hospital to help keep blood pressure up. Has intermittent lightheadedness. Feels li ke she is weak getting up from chair and balance is off. Uses a cane to get around, kids and doc told her to use walker. Sleeping well. No current pain, but shoulders and bcak hurt intermittently. Has steps to basement and are difficult due to fatigue...used to be able to do them reciprocally but has to go marking time currently. Basic ADLs going OK but fairly inactive lately over the last two month s. - Objective 105/80 blood pressure today seated on right arm. reflexes LE 2/3 patella and achilles. sensation WNL to gross light touch. Strength LE and UE 4-/5. gait is I, transfers need UE due to weakness, steps require pull of UE to get up step and lack FW weight shift. Mildly fatigued after steps - Balance Scores Functional Gait Assessment Score: 24 % Disability: 20.0000 - Goals Goal 1 :: Neurocom balance tests completed Goal Time Frame: 2 Weeks Goal 2:: FGA to to diminish fall risk Goal Time Frame: 4-6 Weeks Goal 3:: Exit chair without need for UE Goal Time Frame: 4-6 Week s Goal 4:: Feel 50% steadier and show normal YARIEL with ambulation Goal Time Frame: 4-6 Weeks - Rehabilitation Potential Physical Therapy Diagnosis: weakness and unsteadiness. Rehabilitation Potenti al: Fair - Anticipated Interventions Patient/Client Instruction: Educate patient on: Condition, Plan of Care Comments: balance safety and course of PT For the Purpose of:: To improve nutrient deliv isa to tissue, To improve muscle performance and motor function, To improve gait and locomotor functions Therapeutic Exercise to Include: Strength training, Balance training For the Purpose of:: To i mprove muscle performance and motor function, To improve ability of physical actions for home/community/work/leisure Functional Training to Include: Gait training Comments: arturo SALDIVAR Thank you for the opportunity to evaluate your patient. For Medicare and Medicare HMO plans, please review the plan of care and approve it. It will need to be FAXED BACK to us at [phone] for Medicare purp oses. Please let me know if there are questions or concerns regarding this plan of care. Physician Signature: Date: <Electron ically signed by Kelvin Newman > 08/17/15 0944 CC: Minreva Vergara MD; Nerissa Bhat EBG Signed For Medicare only, by signing this I certify the plan of care. Physicians Signature Date 09-Aug-2015 Brain/Head without Contrast Result: Comments: See Note; NOTES: [facility] Imaging Services [address] [place] [address] Verdana 4d Brain/Head without Contrast MR#: [id number] Acct: [id number] Name: IRIS ARRIAGA Rep #: [id number] : 1940 F 75 From: Robert Osborn MD PCP: Minerva Vergara MD Status: [facility] Study: Brain/Head without Contrast Date of Exam: 08/09/15 Exam# [id number] Ordering D r: Sneha Baptiste MD STUDY: CT BRAIN WITHOUT CONTRAST REASON FOR EXAM: Female, 75 years old. Dizziness, syncope RADIATION DOSAGE (If Supplied By Facility): CTDIvol = ( 58.47 ) mGy, DLP = ( 102 3.26 ) mGycm TECHNIQUE: Transaxial CT imaging of the brain was performed without administration of intravenous contrast material. COMPARISON: 06/07/15 FINDING S: Normal soft tissue structures. Normal calvarium. 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 Th ere is mild cerebral atrophy with widening of the extra-axial spaces and ventricular dilatation. There are areas of decreased attenuation within the white matter tracts of the supratentorial brain, co nsistent with microvascular disease changes. Normal basal ganglia and thalami. Normal brainstem. Normal cerebellum. There is no intracranial hemorrhage. There are no findings of an acute ischemic i nfarction. Normal visualized paranasal sinuses. 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 No significant interval change Electronically Signed: Josesito Osborn MD at 13:15 EST Tel , Service support [phone], CC: Minerva sierra MD; Sneha Baptiste MD [employer] Operator: Signed 09-Aug-2015 Chest 1 View (Portable) Result: Comments: See Note; NOTES: [facility] Imaging Services [address] [place] [address] Verdana 4d Chest 1 View (Portable) MR#: [id number] Acct: [id number] Name: LULA CHANNINGIRIS Caitlin Rep #: [id number] : 1940 F 75 From: Robert Osborn MD PCP: Minerva Vergara MD Status: REG ER Study: Chest 1 View (Portable) Date of Exam: 08/09/15 Exam# [id number] Ordering Dr: Sneha Baptiste MD STUDY: X-RAY CHEST REASON FOR EXAM: Female, 75 years old. Hypoxia, cough TECHNIQUE: Single AP portable view of the chest. COMPARISON: 07/24/15 _ FINDINGS: EKG leads overlie the chest. Stable appearance of the left-sided pacemaker The lungs are clear and expanded. There is no demonstrated pleural abnormality. Sternal cerclage wires and vascular clips are present from a prior sternotomy and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 bypass graft procedure (CABG). Normal mediastinum and juana. Normal visualized pulmonary arteries. Normal visualized aortic arch and descending thoracic aorta. Normal visualized thoracic spine. Normal visualized ribs, clavicles, and shoulders. There is no demonstrated abnormality of the visualized soft tissue structures of the upper abdomen. IMPRESSION: No acute pulmonary process, no interval change Electronically Signed: Josesito Osborn MD at 12:43 EST Tel , Service support [phone], RAD/Chest 1 View (Portable) IMPRESSION: No acute pulmonary process, no interval change Electronically Signed: Josesito Osborn MD at 12:43 EST Tel , Service support [phone], CC: Minerva Vergara MD; Sneha Baptiste MD [employer] Operator: Signed 20-Jul-2015 Chest PA and Lateral Result: Comments: See Note; NOTES: [facility] Imaging Services [address] [place] [address] Verda 4d Chest PA and Lateral MR#: [id number] Acct: [id number] Name: IRIS ARRIAGA Rep #: [id number] : 1940 F 75 From: Ed Fink MD PCP: Minerva Vergara MD Status: REG CLI Study: Chest PA and Lateral Date of Exam: 07/20/15 Exam# [id number] Ordering Dr: Minerva Amezquita MD STUDY: X-RAY CHEST REASON FOR EXAM: Female, 75 years old. Cough. TECHNIQUE: PA and lateral views of the chest. COMPARISON: Comparison is made with prior study dated June 06 015. FINDINGS: The lungs are clear and expanded. There is no demonstrated pleural abnormality. Sternal cerclage wires are present from a prior sternotomy. A l eft-sided dual-chamber pacemaker is seen. Normal mediastinum and juana. Normal visualized pulmonary arteries. There is atherosclerotic tortuosity of the aortic arch and descending thoracic aorta. Th ere is demineralization of the osseous structures. Normal visualized ribs, clavicles, and shoulders. There is no demonstrated abnormality of the visualized soft tissue structures of the upper abdome n. IMPRESSION: No acute abnormality is seen. Electronically Signed: Ed Fink MD at 13:14 EST Tel [phone], Service support , RAD/Chest PA and Lateral IMPRESSION: No acute abnormality is seen. Electronically Signed: Ed Fink MD at 13:14 EST Tel [phone] , Service support [phone], CC: Minerva Vergara MD [employer] Operator: Signed 06-Jun-2015 Brain/Head without Contrast Result: Comments: See Note; NOTES: [facility] Imaging Services [address] [place] [address] Verdana 4d Brain/Head without Contrast MR#: [id number] Acct: [id number] Name: IRIS ARRIAGA Rep #: [id number] : 1940 F 75 From: Ed Fink MD PCP: Minerva Vergara MD Status: REG ER Study: Brain/Head without Contrast Date of Exam: 06/06/15 Exam# [id number] René kyleing Dr: Kermit Verduzco MD STUDY: CT BRAIN WITHOUT CONTRAST REASON FOR EXAM: Female, 75 years old. Laceration overlying the posterior aspect of the skull following a fall. RADIATION DOSAGE (I f Supplied By Facility): CTDIvol = ( 58.8 ) mGy, DLP = ( 1051.12 ) mGycm TECHNIQUE: Transaxial CT imaging of the brain was performed without administration of intravenous contrast material. COMPAR MARIA ELENA: None. FINDINGS: There is evidence of laceration and scalp hematoma overlying the posterior right parietal occipital bones. Normal calvarium. There is mil d cerebral atrophy with widening of the extra-axial spaces and ventricular dilatation. There are areas of decreased attenuation within the white matter tracts of the supratentorial brain, consistent w ith microvascular disease changes. There is evidence of focal encephalomalacia in the posterior left temporal parietal lobes. This is in keeping with an old infarction. Normal basal ganglia and thala mi. Normal brainstem. Normal cerebellum. There is no intracranial hemorrhage. There are no findings of an acute ischemic infarction. Normal visualized paranasal sinuses. IMPRESSION: Chronic involutional changes of the brain. Scalp hematoma overlying the posterior right parietal occipital bone. Electronically Signed: dE Fink MD a t 16:13 EDT Tel [phone], Service support [phone], CC: Minerva Vergara MD; Kermit Verduzco MD [employer] Operator: Signed 06-Jun-2015 Chest 1 View (Portable) Result: Comments: See Note; NOTES: [facility] Imaging Services [address] [place] [address] Verda 4d Chest 1 View (Portable) MR#: [id number] Acct: [id number] Name: IRIS WRAY Rep #: [id number] : 1940 F 75 From: Farhad Cedillo MD PCP: Mnierva Vergara MD Status: REG ER Study: Chest 1 View (Portable) Date of Exam: 06/06/15 Exam# [id number] Ordering Dr: Kermit Verduzco MD STUDY: X-RAY CHEST REASON FOR EXAM: Female, 75 years old. Injury cough and confusion TECHNIQUE: Single AP portable view of the chest. COMPARISON: 04/03/2015 FINDINGS: A left-sided bipolar pacemaker is seen with leads appearing in good position. The lungs are clear and expanded. There is no demonstrated pleural abnormality. There is moderate cardiac enlargement. Normal mediastinum and juana. Normal visualized pulmonary arteries. Normal visualized aortic arch and descending thoracic aorta. Normal visualized thoracic spine. No rmal visualized ribs, clavicles, and shoulders. Status post sternotomy changes are present. There is no demonstrated abnormality of the visualized soft tissue structures of the upper abdomen. IMPRESSION: 1. Left-sided bipolar pacemaker seen with leads appearing in good position. 2. Moderate cardiomegaly. 3. Status post sternotomy changes. 4. There is no evidence of infiltrate, atelectasis, or pleural fluid. Electronically Signed: Farhad Cedillo MD at 17:06 EDT Tel , Service support [phone], ORD ER #: [id number] RAD/Chest 1 View (Portable) IMPRESSION: 1. Left-sided bipolar pacemaker seen with leads appearing in good position. 2. Moderate cardiomegaly. 3. Status post sternotomy changes. 4. There is no evidence of infiltrate, atelectasis, or pleural fluid. Electronically Signed: Farhad Cedillo MD at 17:06 EDT Tel , Service support [phone], Fax CC: Minerva Vergara MD; Kermit Verduzco MD [employer] Operator: Signed 06-Jun-2015 Pelvis 1 or 2 Views Result: Comments: See Note; NOTES: [facility] Imaging Services [address] [place] [address] Verdana 4d Pelvis 1 or 2 Views MR#: [id number] Acct: [id number] Name: IRIS ARRIAGA Rep #: [id number] : 1940 F 75 From: Ed Fink MD PCP: Minerva Vergara MD Status: REG ER Study: Pelvis 1 or 2 Views Date of Exam: 06/06/15 Exam# [id number] Ordering Dr: Kermit Verduzco MD STUDY: X-RAY - PELVIS REASON FOR EXAM: Female, 75 years old. Pain following a fall. TECHNIQUE: One view of the pelvis was obtained. COMPARISON: None. FINDINGS: There is a non-specific bowel gas pattern. There are multiple calcified phleboliths. There is narrowing with cortical sclerosis and osteophyte formation of the sacroiliac joint consistent with degenerative osteoarthritic changes. Normal visualized bilateral superior and inferior pubic rami. Normal pubic symphysis. Normal ischial tuberosities. The patient is status post david ateral total hip replacement. There is good alignment. IMPRESSION: Status post bilateral total hip replacement. Electronically Signed: Ed Fink MD at 16:15 EDT Tel [phone], Service support [phone], RAD/Pelvis 1 or 2 Views IMPRESSION: Status post bilateral total hip replacement. Elect ronically Signed: Ed Fink MD at 16:15 EDT Tel [phone], Service support [phone], CC: Minerva Vergara MD; Kermit Verduzco MD [employer] Operator: Signed 06-Jun-2015 Spine Cervical without Contras Result: Comments: See Note; NOTES: [facility] Imaging Services [address] [place] [address] Verdana 4d Spine Cervical without Contras MR#: [id number] Acct: [id number] Na me: IRIS ARRIAGA Rep #: [id number] : 1940 F 75 From: Ed Fink MD PCP: Minerva Vergara MD Status: REG ER Study: Spine Cervical without Contras Date of Exam: 06/06/15 Exam# [id number]: Kermit Verduzco MD STUDY: CT CERVICAL SPINE WITHOUT CONTRAST REASON FOR EXAM: Female, 75 years old. History of fall. RADIATION DOSAGE (If Supplied By Facility): CTDIvol = ( 16.12 ) mGy, DLP = ( 576.56 ) mGycm TECHNIQUE: High resolution transaxial imaging was performed without contrast material. Sagittal and coronal images were reconstructed. COMPARISON: None FINDINGS: Normal craniovertebral junction. There are degenerative changes of the anterior atlantoaxial articulation. Normal odontoid process. There is straightening of the normal cervical lordosis. Normal vertebral bodies and posterior osseous elements. C2-3: Facet joint osteoarthritis and hypertrophy on the left side. Mild narrowing of the left intervertebral foramen . This also evidence of uncovertebral arthrosis. C3-4: Facet joint osteoarthritis worse on the right side with hypertrophy. Narrowing of the right intervertebral foramen. C4-5: Normal endplates. N ormal disc height and morphology. Normal central canal and intervertebral neuroforamina. C5-6: There is a marked degree of disc space narrowing with disc degeneration and spondylosis. There is evide nce of facet joint osteoarthritis and hypertrophy. There is narrowing of the intervertebral foramen bilaterally. C6-7: Might degree of disc space narrowing with spondylosis. Facet joint osteoarthri tis. There is narrowing of the intravertebral foramen bilaterally. C7-T1: Normal endplates. Normal disc height and morphology. Normal central canal and intervertebral neuroforamina. Normal visuali zed soft tissue structures. IMPRESSION: Multilevel degenerative changes, as described above. Electronically Signed: Ed Fink MD at 16:15 EDT Tel [phone], Service support [phone], CC: Minerva Vergara MD; Kermit Verduzco MD [employer] Operator: Signed 19-Apr-2015 Spine Lumbar without Contrast Result: Comments: See Note; NOTES: [facility] Imaging Services [address] [place] [address] CAT Scan Report MR#: [id number] Acct: [id number] Name: IRIS ARRIAGA Rep #: [id number] : 1940 F 75 From: Tami Rodriguez MD PCP: Minerva Vergara MD Status: REG CLI Study: Spine Lumbar without Contrast Date of Exam: 04/19/15 Exam# [id number] Ordering Dr: Monica Mir, Out o. STUDY: CT LUMBAR SPINE WITHOUT CONTRAST REASON FOR EXAM: Female, 75 years old. Lower back pain RADIATION DOSAGE (If Supplied By Facility): CTDIvol = ( 56.38 ) mGy, DLP = ( 1444.32 ) mGycm TECH NIQUE: The patient was scanned in a multi detector CT scanner. High resolution transaxial imaging was performed. Images were obtained from T12 to S2. Sagittal and coronal images were reconstructed. COMPARISON: None FINDINGS: There is straightening of the normal lumbar lordosis. There is levoscoliosis of the lumbar spine the angle measures 17? between T12 an d L4. Normal vertebrae of the lumbar spine. L1-2: Normal endplates. Normal disc height and morphology. Normal bilateral facet joints. Normal central canal and bilateral lateral recesses. Normal b ilateral intervertebral neural foramina. L2-3: Small bilateral foramina disc bulges are noted more prominent on the right side result in mild narrowing of neural foramina bilaterally. L3-4: There i s a large circumferential disc bulge extending to neural foramina more prominent on the right side resulted in mild narrowing of the spinal canal and mild narrowing of left neuroforamina moderate narr owing of right neuroforamina. L4-5: There is 5 mm spondylolisthesis due to degenerative changes in the facet joints there is resultant moderate narrowing of spinal canal and severe narrowing of becca ral foramina bilaterally. L5-S1: Degenerative changes are noted in the left facet joint result in severe narrowing of left neuroforamina. Spinal canal and right neural foramina are not significantly narrowed. Normal visualized paraspinous soft tissue structures. IMPRESSION: L2-3: Mild narrowing of neural foramina bilaterally. L3-4: Mild narrowing of the spinal canal and mild narrowing of left neuroforamen moderate narrowing of right neuroforamen. L4-5: Moderate narrowing of spinal canal and severe narrowing of neural foramina bilaterally. L5-S1: Severe narrowing of left neuroforamen. Electronically Signed: Jessy Rodriguez MD at 14:58 EDT Tel , Service support [phone], CC: Minerva Vergara MD; OUT OF TOWN DOCTOR [employer] Operator: Signed 19-Apr-2015 Lumbar Myelogram Result: Comments: See Note; NOTES: [facility] Imaging Services [address] [place] [address] Radiology Report MR#: [id number] Acct: [id number] Name: IRIS ARRIAGA Rep #: [id number] : 1940 F 75 From: Tami Rodriguez MD PCP: Minerva Vergara MD Status: REG CLI Study: Lumbar Myelogram Date of Exam: 04/19/15 Exam# [id number] Ordering Dr: CRISTIAN COFFEY CLINICAL HISTORY : Female, 75 years old. Spinal canal stenosis. Lower back pain PROCEDURE: Myelogram - lumbar epidural steroid injection CONSENT: The risks, benefits and alternatives to the procedure were explaine d to the patient, and the patient agreed to the procedure and signed the consent. SEDATION: Intermittent the intravenous and demonstration of Versed and fentanyl by nursing staff under continuous ca rdiopulmonary monitoring. Sedation less than approximately 30 minutes STERILE BARRIER TECHNIQUE: The following sterile barrier precautions were used during the procedure: hand hygiene; use of 2% chl orhexidine aseptic; use of a cap, mask, sterile gown, sterile gloves, sterile full body drape, and a large sterile sheet. PROCEDURE/TECHNIQUE: The risks, benefits, and alternatives to the procedure were explained to patient, and the patient agreed to the procedure and signed a consent form for the procedure. A timeout was performed to confirm the patient's identity, the type of procedure, to be performed and the site of entry. FLUOROSCOPY TIME (if supplied): (0:40) minutes/seconds TECHNIQUE: Under fluoroscopic guidance using sterile technique and after infiltration of the skin and sub cutis soft tissues with 10 mL lidocaine 1% a 22-gauge needle is introduced in the lumbar thecal sac at L2-3, 20 mL of Isovue 200 injected in the thecal sac multiple views were obtained. FINDINGS: At L1-2, L2-3, L3-4 the thecal sac appears normal in size. There is severe disc narrowing at L3-4. At L4-5: There is 5 mm spondylolisthesis due to degenerative c hanges in the facet joints there is resultant severe narrowing of spinal canal and advanced degenerative changes are joints. At L5-S1: Degenerative changes are noted in the left facet joint result i n severe narrowing of left neuroforamina. Spinal canal and right neural foramina are not significantly narrowed. IMPRESSION: There is severe spinal canal steno sis at L4-5. Electronically Signed: Jessy Rodriguez MD at 15:12 EDT Tel , Service support [phone], RAD/Lumbar Myelogram IMPRESSI ON: There is severe spinal canal stenosis at L4-5. Electronically Signed: Jessy Rodriguez MD at 15:12 EDT Tel , Service support [phone], CC: Gina Vergara MD; CRISTIAN COFFEY [employer] Operator: Signed 10-Apr-2015 Discharge Instruction Result: Comments: See Note; NOTES: [facility] Medical Records Department [address] [place] [address] Discharge Instruction 04/03/15 1440 MR#: [id number] Acct: [id number] Name: IRIS ARRIAGA Rep #: [id number] : 1940 75 From: Ellen Gilman MD PCP: Minerva Vergara MD Status: DEP ER ED Disposition - Plan for ED Patient: Disposition: Home or Assisted Living Chi ef Complaint: Lower Extremity Injury Instructions: ED Leg Spasm Referrals: Minerva Vergara MD [Primary Care Provider] - 1 Day What to do if you have Problems For any increased pain, shortness of breath, bleeding, nausea or vomiting, chest pain, or any unexpected problems, contact your doctor. Call [facility] ([phone]) or report to the closest Emergency Room. Call 911 if necessary. 04/03/15 1441 <Electronically signed by Ellen Gilman MD> Date Ellen Gilman MD 04/10/15 0835<Electronically signed b gisell Polanco MD> Cosigner Signature (If Indicated): Date Rickie Polanco MD CC: Minerva Vergara MD 10-Apr-2015 Discharge Instruction Result: Comments: See Note; NOTES: [facility] Medical Records Department [address] [place] [address] Discharge Instruction 04/03/15 1448 MR#: [id number] Acct: [id number] Name: IRIS ARRIAGA Rep #: [id number] : 1940 75 From: Rickie Polanco MD PCP: Minerva Vergara MD Status: DEP ER ED Disposition - Plan for ED Patient: Disposition: Home or Assisted Living C hief Complaint: Lower Extremity Injury Instructions: ED Leg Spasm Prescriptions: Oxycodone HCl/Acetaminophen [Percocet 5/325] 1 - 2 tablet PO Q4H PRN PRN #20 tablet PRN Reason: Pain Diazepam [Valiu m] 5 mg PO Q8 PRN #10 tablet PRN Reason: Muscle Spasm Referrals: Minerva Vergara MD [Primary Care Provider] - 1 Day What to do if you have Problems For any increased pain, shortness of breath, bl eeding, nausea or vomiting, chest pain, or any unexpected problems, contact your doctor. Call [facility] ([phone]) or report to the closest Emergency Room. Call 911 if necessary. 04/10 0835 <Electronically signed by Rickie Polanco MD> Date Rickie Polanco MD Cosigner Signature (If Indicated): Date CC: Minerva Vergara MD 10-Apr-2015 Emergency Department Summary Result: Comments: See Note; NOTES: [facility] Medical Records Department [address] [place] [address] Emergency Department Summary MR#: [id number] Acct: [id number] Name: IRIS VALENCIA Rep #: [id number] : 1940 75 From: Ellen Gilman MD PCP: Minerva Vergara MD Status: [facility] ER DATE OF SERVICE: 04/03/2015 This is Ellen Gilman dictating for Dr. Rickie Polanco. HI STORY OF PRESENT ILLNESS: The patient is a 75-year-old female who presents with complaint of right thigh pain. The patient states for the last 3 days she has been having sharp pain in the medial right thigh with radiation to the surrounding area and in the leg. She denies any associated paresthesias, weakness or loss of function. She is ambulating without difficulty. She denies any injury to the leg. She does have a history of a blood clot in the right lower extremity after a cardiac catheterization. The patient denies any fever, dyspnea, cough, nausea, vomiting. She does endorse chest tightn ess that started when she laid down in the bed in the room. MEDICAL HISTORY: Remarkable for history of stroke, hypertension, cardiac catheterizations, pig valve replacement, defibrillator and pacem airam, IVC filter, bilateral total hip replacements and right knee replacement. PHYSICAL EXAMINATION: GENERAL: The patient is afebrile and hemodynamically stable. No hypoxia. Well nourished and well developed, lying in bed in no distress. NECK: Nontender with full range of motion. CARDIOVASCULAR: Heart is regular in rate, irregular rhythm. LUNGS: Clear to auscultation bilaterally with no respir atory distress. Pulses are 2+. Chest is nontender. ABDOMEN: Soft, nontender, nondistended with normal bowel sounds and no masses. BACK: Nontender. EXTREMITIES: She has no tenderness to palpation. Th e patient has active full range of motion and no trauma noted. Right lower extremity is warm and well perfused, no swelling or tenderness at any point along the leg. SKIN: Normal in color. No focal n euro deficits. EMERGENCY DEPARTMENT COURSE: The patient presents with the chief complaint of 3 days of episodic right lower extremity pain. She does endorse chest tightness upon review of symptoms, but did not come in with that chief complaint. Evaluation of the right lower extremity was performed in addition to a chest pain workup. Right femur x-ray showed no fracture, no hardware abnormality. Right lower extremity had duplex ultrasound that was negative for DVT. EKG showed a sinus rhythm with initial borderline ST depression in V4 through V6. Repeat EKG [address] hours later showed no ST depressi on. Troponin was negative at initial and repeat evaluation 2 hours later. Chem panel remarkable for creatinine 1.17, which is at the patient's baseline per review of multiple creatinine levels over t he last few years. The patient was given aspirin and morphine. Upon reassessment, the patient was still complaining of the spasms in her leg. She was given p.o. Percocet. No life-threatening reason fo r the patient's leg pain was found. She was prescribed Valium and Percocet for symptomatic control of muscle spasms at home. Her chest tightness was only discovered on review of symptoms upon asking t he patient, thus a 2-hour delta chest pain, rule out was performed. She had no abnormalities noted. She will be discharged home with instructions to follow up with her primary care provider. She agre ed with this plan and was discharged home with her . IMPRESSION: 1. Acute right thigh pain. 2. Muscle spasm. 3. Noncardiac chest pain, acute. Ellen Gilman MD T: NTS JOB: [id number] 04/05/15 0836 <Electronically signed by Ellen Gilman MD> Date Ellen Gilman MD 04/10/15 0835 <Electronically signed by Natanael Polanco MD> Cosigner Signature (If Indicated): Date Rickie Polanco MD CC: Minerva Vergara MD Date Dictated: 04/03/151454 Date Transcribed: 04/03/151454 [employer] Operator: Signed 04-Apr-2015 12 Lead Electrocardiogram Result: Comments: See Note; NOTES: [facility] Cardiovascular Services [address] [place] [address] 12 Lead EKG 04/03/15 1351 MR#: [id number] Acct: [id number] Name: IGGY ARRIAGA Rep #: [id number] : 1940 75 From: Gurdeep Huang MD Attending Dr: Status: DEP ER Ordering Dr: Rickie Polanco MD Date: 04/03/15 Location: ED Sex: F C Admitted: Test Reason : REP EAT Blood Pressure : / mmHG Vent. Rate : 062 BPM Atrial Rate : 062 BPM P-R Int : 252 ms QRS Dur : 128 ms QT Int : 470 ms P-R-T Axes : 072 -13 025 degrees QTc Int : 477 ms Sinus rhythm wi th 1st degree A-V block with occasional PVCs Leftward axis Consider voltage criteria for LVH Abnormal ECG Confirmed by REINA TIRADO, GURDEEP ([id number]), manager editorial ESPERANZA MARIEE ([id number]) on 04/04/2015 10:27:52 AM Referred By: VALENTINA Confirmed By:GURDEEP HUANG MD 04/04/15 1027 Date Gurdeep Huang MD CC: Minerva Vergara MD Date Dictated: 04/03/15 1351 Date Transcribed: 04/03/15 1351 [employer] Operator: Signed 03-Apr-2015 Femur 2 Views Result: Comments: See Note; NOTES: [facility] Imaging Services [address] [place] [address] Radiology Report MR#: [id number] Acct: [id number] Name: IRIS ARRIAGA Rep #: [id number] : 1940 F 75 From: Ed Fink MD PCP: Minerva Vergara MD Status: REG ER Study: Femur 2 Views Date of Exam: 04/03/15 Exam# [id number] Ordering Dr: Rickie Polanco MD STUDY: X- RAY - RIGHT FEMUR REASON FOR STUDY: Female, 75 years old. Pain and soft tissue swelling. TECHNIQUE: 5 view(s) of the femur. COMPARISON: None. FINDINGS: The patient is status post right total hip replacement. The patient is also status post lateral hemiarthroplasty of the knee joint. Mild soft tissue swelling. IMPRES JANEEN: No acute abnormality is seen. Electronically Signed: Ed Fink MD at 12:59 EDT Tel [phone], Service support [phone], RAD/ Femur 2 Views IMPRESSION: No acute abnormality is seen. Electronically Signed: Ed Fink MD at 12:59 EDT Tel [phone], Service support [phone], CC: Minerva Vergara MD; Rickie Polanco MD [employer] Operator: Signed 03-Apr-2015 Chest PA and Lateral Result: Comments: See Note; NOTES: [facility] Imaging Services [address] [place] [address] Radiology Report MR#: [id number] Acct: [id number] Name: IRIS ARRIAGA Rep #: [id number] : 1940 F 75 From: Ed Fink MD PCP: Minerva Vergara MD Status: REG ER Study: Chest PA and Lateral Date of Exam: 04/03/15 Exam# [id number] Ordering Dr: Ellen Gilman MD STUD Y: X-RAY CHEST REASON FOR EXAM: Female, 75 years old. Chest pain and chest tightness. TECHNIQUE: AP and lateral views of the chest. COMPARISON: Comparison is made with prior examination dated Febr 2014. FINDINGS: There is blunting of the right costophrenic angle. Mild increased markings at the lung bases suggestive of linear scarring. Sternal cerclage wires and vascular clips are present from a prior sternotomy and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 bypass graft procedure (CABG). A left-sided dual-chamber pacemaker is seen. Normal mediastinum and juana. Letha l visualized pulmonary arteries. There is atherosclerotic tortuosity of the aortic arch and descending thoracic aorta. There is demineralization of the osseous structures. Normal visualized ribs, c lavicles, and shoulders. There is no demonstrated abnormality of the visualized soft tissue structures of the upper abdomen. IMPRESSION: Mild degree of linear scarring at the lung bases and blunting of both costophrenic angles. Electronically Signed: Ed Fink MD at 13:05 EDT Tel [phone], Service support [phone], Fax RAD/Chest PA and Lateral IMPRESSION: Mild degree of linear scarring at the lung bases and blunting of both costophrenic angles. Electronically Signed: Ed ledezma MD at 13:05 EDT Tel [phone], Service support [phone], CC: Ellen Gilman MD; Minerva Vergara MD [employer] Operator: Signed 27-Mar-2015 Abd Inc Decub and/or Erect Result: Comments: See Note; NOTES: [facility] Imaging Services [address] [place] [address] Radiology Report MR#: [id number] Acct: [id number] Name: IRIS ARRIAGA Rep #: [id number] : 1940 F 75 From: Tylor Guzman DO PCP: Minerva Vergara MD Status: REG CLI Study: Abd Inc Decub and/or Erect Date of Exam: 03/27/15 Exam# [id number] Ordering Dr: Ida Quiñonez DO STUDY: X- RAY - ABDOMEN/PELVIS REASON FOR EXAM: Female, 75 years old. Abdominal pain TECHNIQUE: 2 frontal views COMPARISON: None. FINDINGS: Normal visualized lung bas es. There is an unremarkable bowel gas pattern. There is no demonstrated free abdominal air. IVC filter in place. Pacemaker is noted. Normal soft tissue structures. Scoliosis with degenerative ve rtebral changes. Bilateral hip prosthesis. IMPRESSION: No acute abdominal pathology is noted. Electronically Signed: Tylor Guzman DO at 18:34 EDT Te l [phone], Service support [phone], 0093 RAD/Abd Inc Decub and/or Erect IMPRESSION: No acute abdominal pathology is noted. Electronically Signed: Tylor Guzman DO at 18:34 EDT Tel [phone], Service support [phone], CC: Minerva Vergara MD; Ida Quiñonez DO [employer] Operator: Signed 20-Mar-2015 PT Discharge Summary Result: Comments: See Note; NOTES: [facility] Physical Therapy [facility] [address] [place] [address] Fax REHABILITATION SERVICES DISCHARGE SUMMARY MR#: [id number] Acct: [id number] Name: IRIS ARRIAGA Rep #: [id number] : 1940 75 From: Kelvin Newman Referring Dr.: Minerva Vergara MD Status: REG RCR Eval Date: Disch Date: DATE OF SERVICE: PHYSICIAN: Dr. Vergara. DIAGNOSIS: Unsteady gait. Date of discharge is March 16, 2015. Iris Arriaga has been seen in my office for a total of 8 visits. She wa s seen initially back on January 18, 2015, had a balance assessment and then has been treated with instruction in appropriate balance exercise based on her results and she has made good progress. She has worked to the point where she is independent with home exercise program that she can continue both here and the pool as well as at home to maintain the improvements she has made in her balance. I hav e shown her some lower extremity strengthening exercise. She will follow up with Dr. Saha for shoulder pain that she has been having for quite some time. She has shown a 12-point improvement on her sensory organization test from the initial evaluation. She has shown a 5- point improvement on functional gait assessment from her initial evaluation and has met all the goals set for at the initi al evaluation with the exception of showing less than 20% disability on the lower extremity functional scale. At this point, we have reviewed appropriate exercise to continue at home, which she will d o and I am discontinuing her from physical therapy to her home exercise program. Kelvin Newman, PT T: NTS JOB: [id number] <Electronically signed by Kelvin Newman > 03/20/15 0648 CC: Signed 25-Jan-2015 Chest PA and Lateral Result: Comments: See Note; NOTES: [facility] Imaging Services [address] [place] [address] Radiology Report MR#: [id number] Acct: [id number] Name: IRIS ARRIAGA Rep #: [id number] : 1940 F 75 From: Apolinar Ansari DO PCP: Minerva Vergara MD Status: REG CLI Study: Chest PA and Lateral Date of Exam: 01/25/15 Exam# [id number] Ordering Dr: Gurdeep Huang MD STUD Y: X-RAY CHEST REASON FOR EXAM: Female, 75 years old. Shortness of breath TECHNIQUE: PA and lateral views of the chest. COMPARISON: 09/22/14 FINDINGS: Left-s ided pacemaker is unchanged. There is very minimal discoid atelectasis at the left lung base. The lungs are otherwise clear. There is no demonstrated pleural abnormality. Sternal cerclage wires and vascular clips are present from a prior sternotomy and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 bypass graft procedure (CABG). Normal mediastinum and juana. Normal visualized pulmonary arteries. There is atherosclerotic tort uosity of the aortic arch and descending thoracic aorta. The bones are slightly demineralized. Mild degenerative changes are seen within the thoracic spine. Normal visualized ribs, clavicles, and s houlders. A portion of an IVC filter is visualized. IMPRESSION: Very minimal left basilar atelectasis. Otherwise, no acute process. Electronically Signed: Leann Ansari DO at 5:42 EDT Tel , Service support [phone], RAD/Chest PA and Lateral IMPRESSION: Very minimal left basilar atel ectasis. Otherwise, no acute process. Electronically Signed: Apolinar Ansari DO at 5:42 EDT Tel , Service support [phone], CC: Minerva Vergara MD; Gurdeep Huang MD [employer] Operator: Signed 24-Jan-2015 Pulmonary Function Report Comp Result: Comments: See Note; NOTES: [facility] Pulmonary Services/Neurology [address] [place] [address] Pulmonary Function Test (Comp) MR#: [id number] Acct: [id number] Name: IRIS ARAUJO Rep #: [id number] : 1940 75 From: Jeremie Avendano MD Referring Dr: Peace Curran Status: REG CLI Ordering Dr: Peace Curran Date: 01/18/15 Location: [facility] Sex: F C MAI E OF SERVICE: BRIEF HISTORY OF PRESENT ILLNESS: The patient is a 73-year-old female, currently under the care of Dr. Huang, who presents for complete pulmonary function tests secondary to a diagnosis of amiodarone therapy. Respiratory therapist reported good patient effort, but difficulty with testing. The patient did have DuoNebs used for bronchodilator response. INTERPRETATION: Forced expiration spirometry demonstrates no large airways obstructive ventilatory defect. There is no significant response to bronchodilators using strict ATS criteria. Spirograms are of poor quali ty and show exhalation of only 4-5 seconds. The respiratory flow volume loop shows a delayed peak flow, but no scooping is noted. Lung volumes by body plethysmography show moderate restrictive ventil atory defect as demonstrated by total lung capacity of 4.24 liters, 68% of predicted. Remaining lung volumes are reduced symmetrically. Diffusion capacity by single-breath carbon monoxide is severel y reduced at 32% of predicted. Airway resistance is normal. When compared to previous study completed on August 20, 2012, there has been a significant decrease in FVC and DLCO. There has been an el evation of total lung capacity, which appears to be secondary to increased residual volume indicating increased air trapping. IMPRESSION: Poor study, but appears to have a moderate restrictive vent ilatory defect with a decrease in diffusion capacity out of proportion to level of restriction indicating concomitant pulmonary vascular disorder and possible interstitial lung disease. Difficult to m edwin conclusions about possible amiodarone toxicity. Consider chest imaging. There has been worsening since previous study. MD Lisseth MEDRANO C: Gurdeep Huang MD T: [facility] JOB: [id number] SPIROMETRY Ref ULN/LLN Pre Pre Post Post Post Lianet % Ref Lianet % Ref % Chg FVC (L) 3.28 1.99 60 2.02 61 2 FEV1 (L) 2.33 1.83 79 1.91 82 4 FEV1/FVC (%) 79 92 95 FEV6 FEF 25-75% (L/sec) 1.88 2 .54 135 3.30 175 30 FEF 50% (L/sec) 2.85 (1.5-4.2) 3.21 113 4.48 157 39 FEF 75% (L/sec) 0.64 (0.2-1.1) 1.33 208 1.81 283 36 PEF (L/sec) 6.27 (3.4-9.1) 4.25 68 5.00 80 18 FET 100% (sec) 5.06 4.06 -20 FIVC (L/min) 3.28 1.58 48 1.45 44 -8 FEF/FIF50 1.18 1.58 34 MVV (L/min) DIFFUSION Ref ULN/LLN Pre Pre Post Post Lianet % Ref Lianet % Ref DLCO (ml/min/mmHg) 22.7 (14.4-31.0) 7.2 32 DL Adj (ml/mmHg/min) 22.7 (14.4-31.0) 7.2 32 DLCO/VA (ml/mHg/min/L) 3.42 (1.6- 5.3) 2.22 65 VA (L) 3.27 IVC (L) 1.52 DL/VA Adj (ml/mHg/min/L) PLETHYSMOGRAPHY Ref ULN/LLN Pre Pre Post Post Post LUNG SOUNDS (BTPS) Lianet % Ref Lianet % Ref % Chg TLC (L) 6.20 (5.4-7.0) 4.24 68 VC (L) 3.28 2.05 62 IC (L) 2.42 (2.0-2.9) 1.[address] (L) 3.51 (2.6-4.5) 2.43 69 ERV (L) 1.21 (1.0-1.4) 0.24 20 RV (L) 2.53 (1.8-3.2) 2.19 87 RV/TLC (%) 41 (29.3-52.8) 52 RESISTANCE Ref Pre Pre Post Post Post Lianet % Ref Lianet % Ref % Chg Raw Total (cmH20/L/sec) Raw Insp (cmH20/L/sec) Ra w Exp (cmH20/L/sec) Raw (cmH20/L/sec) GAW (L/sec/cmH20) sGAW (L/s/cmH20/L) Vtg (Raw) (Liters) Therapist Comments: Aerosol given with Duoneb. Pt gave good effort for testing but did have trou ble emptying lungs completely. Patient requested Dr. Avendano to read. Date: 01/18/15 Tech.: [place] Temp: PBar: Height(in.): 71 Weight(lbs.): 174 Diagnosis: Amiodarone therapy Medication : : Dyspnea Rest: Dyspnea Exercise: Cough: Productive (cc): Persistent: Smoker: N How Long (pk/yrs): Stopped (yrs): Cigarettes: Cigars: 01/24/15 0647 <Electronically signed by Grisel Avendano MD> Date Jeremie Avendano MD CC: Jeremie Avendano MD; Minerva Vergara MD; Peace Curran; Gurdeep Huang MD Date Dictated: 01/19/151645 Date Transcribed: 01/19/151645 [employer] Operator: Signed 19-Jan-2015 Inital Evaluation - PT Result: Comments: See Note; NOTES: [facility] Physical Therapy [facility] [address] [place] [address]. [address] [place], [place] [address] Fax REHABILITATION SERVICES INITIAL EVALUATION MR#: [id number] Acct: [id number] Name: IRIS ARRIAGA Rep #: [id number] : 1940 75 From: Kelvin Newman Referring DrTammi: Minerva Vergara MD Status: REG RCR Insurance: [employer] MEDICARE PPO Eval Date: ANTH Patient's Visit Information IRIS ARRIAGA is a 75 year old F, referred to Physical Therapy by Minerva Vergara,, with a diagnosis of Unsteady gait. Date of E valuation: 01/18/15 See the following SOAP Note - Visit Plan Frequency: after balance assessment - Subjective Subjective: I am here for my balance. I am not walking good. Been that way for a whi le. Fell one time at daughter's house 3 weeks ago missing bottom step. Using cane to go out walking not for ADLs. No dizzyness, no obvious LE neuropathy. Live with hubby in two story house, can do step s with rail. Basement sometimes for laundry but tries to minimize it due to fatigue. Basic ADLs I. Enjoys eating and reading and walking with . Shops with [employer], no AD. - Objective Objective: Ambulates with wide YARIEL causing wobble and inefficiency in gait but I on firm flat surface. Transfers I to/fro chair without UE. Steps are reciprocal with one rail. LE strength 4/5 except DF at 4-/5. Sensation grossly WNL to touch, but foot slap in gait and wide YARIEL make me question neuropathy. reflexes1/3 patella and achilles without clonus. coordination deficits in reciprocal toe and heel tap ob vious. - Balance Scores Functional Gait Assessment Score: 18 % Disability: 40.0000 - Goals Goal 1:: LEFS <20% disability to improve mobility Goal Time Frame: 4-6 Weeks Goal 2:: FGA 23/3 0 to decrease fall risk Goal Time Frame: 4-6 Weeks Goal 3:: I approp HEP to maintain improvements Goal Time Frame: 4-6 Weeks Goal 4:: Feel 50% steadier and show normal YARIEL with ambulation Goal Time Frame: 4-6 Weeks - Rehabilitation Potential Rehabilitation Potential: Fair - Anticipated Interventions Patient/Client Instruction: Educate patient on: Condition, Plan of Care Comments: rose blas, recommend use cane For the Purpose of:: To improve balance Therapeutic Exercise to Include: Balance training Comment: per neurocom results For the Purpose of:: To improve balance Functional T raining to Include: Gait training Comments: narrow YARIEL For the Purpose of:: To improve muscle performance and motor function Thank you for the opportunity to evaluate your patient. Please look a t the plan of care and approve it as it will need to be FAXED BACK to us at [phone] for Medicare purposes. Please let me know if there are questions or concerns regarding this plan of care. & amp;#60;Electronically signed by Kelvin Newman > 01/19/15 0932 CC: EBG Signed For Medicare only, by signing this I certify the plan of care. Physicians Signature Date 10-Jan-2015 ELECTROCARDIOGRAM, COMPLETE (ECG) (01008) Result: [MEASUREMENTS ANALYSIS] Date of Test: 08/09/2015 10:29:14; Heart Rate: 78; OR Interval: 230; QRS: 114; QT Interval: 438; Corrected QT Interval (QTc): 469; P Wave [place]: 69; QRS Wave [place]: -7; T Wave [place] : 22; Blood Pressure: 140/90 [ECG DIAGNOSTIC STATEMENTS] Date of Test: 08/09/2015 10:29:14; Summary: Sinus Rhythm -First degree A-V block -Frequent pvcs - ventricular bigeminy Viridiana = 230- Nonspecific T-abnormality. ABNORMAL [MEASUREMENTS ANALYSIS] Date of Test: 08/09/2015 10:29:10; Heart Rate: 78; OR Interval: 230; QRS: 114; QT Interval: 438; Corrected QT Interval (QTc): 469; P Wave [place]: 69; QRS W ave [place]: -7; T Wave [place]: 22; Blood Pressure: 140/90 [ECG DIAGNOSTIC STATEMENTS] Date of Test: 08/09/2015 10:29:10; Summary: Sinus Rhythm -First degree A-V block -Frequent pvcs -ventricular bigeminy Viridiana = 230- Nonspecific T- abnormality. ABNORMAL 05-Jan-2015 PT Discharge Summary Result: Comments: See Note; NOTES: [facility] [address] [place] [address]. [address] [place], [place] [address] Fax REHABILITATION SERVICES DISCHARGE SUMMARY MR#: [id number] Acct: [id number] Name: IRIS ARRIAGA Rep #: [id number] : 1940 74 From: Kelvin Newman Referring Dr.: Tiffanie Saha DO Status: REG RCR Eval Date: Cheryl scharyudelka Date: DATE OF SERVICE: 01/04/2015 PHYSICIAN: Tiffanie Saha D.O. DIAGNOSES: Right-sided weakness, calcific tendinosis. SUBJECTIVE: Iris Arriaga was seen in my office for a total of 4 visits for instruction and progression of appropriate home exercises to help strengthen her right upper extremity scapula rotator cuff. She has been doing exercise at home for the last 3 weeks independently without any problem. She says she still gets pain almost daily in the afternoon, sometimes at up to 8/10, but is only with movement, it is better in the morning. She is overall fe eling better. She is getting a little bit better and a little bit stronger. She did have a setback where she fell going down steps, scraping up her knees and she says she is getting tired easily. I adler ve recommended she follow up with her family doctor, Dr. Vergara, regarding these issues and certainly recommend balance assessment, which the patient will address with Dr. Vergara. The patient will n ot be following up with Dr. Saha at anytime soon. She scores 19/30 on the functional gait assessment, which is a little bit low for her age. She has full range of motion both shoulders today wi thout pain. GOALS: 1. We have met the goal of having full active range of the right shoulder without pain. 2. We have not met the goal of pain being 0-1/10 at all times as again sometimes in the af ternoon, it does get worse transiently. 3. Being able to dress, putting on her coat and shirt without noticing pain has been met. 4. Being able to resume exercise safely for her own fitness has been m et with a home exercise program. 5. Less than 20% disability on the DASH has been met scoring 53/150, therefore, as she is independent with her home exercise for continued strengthening, we will disc harge her to that program. Kelvin Newman, PT T: LORI JOB: [id number] <Electronically signed by Kelvin Newman > 01/05/15 0931 CC: Signed 24-Nov-2014 Inital Evaluation - PT Result: Comments: See Note; NOTES: [facility] [address] [place] [address] Fax REHABILITATION SERVICES INITIAL EVALUATION MR#: [id number] Acct: [id number] Name: IRIS ARRIAGA Rep #: [id number] : 1940 74 From: Kelvin Newman Referring Dr.: Tiffanie Saha DO Status: REG RCR Insurance: [employer] PPO Eval Date: ANTHEM DATE OF SERVICE: 11/23/2014 PHYSICIAN: Dr. 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 SUBJECTIVE: Iris Arriaga i s a 74-year-old female, who has a long medical history. She has had a heart stoppage for which she thought she was going to . This was about 3-4 years ago. She then had a stroke and a seizure at t hat time. More recently, she says she was put on antibiotic that she was allergic to and sick for couple of months. Prior to that initiating; however, for the last 4 months or so since winter she has had right-sided shoulder pain when she moves her arm. She points to the front and top of her shoulder. Calls it a burning pain. Says it goes down her upper arm and rates it at 2-4/10 rec ently. Doctor did do an injection, which helped about 50, but it hurts when she reaches overhead, put her shirt or coat on, reaching up. When she is at rest, it is fairly comfortable. She is sleepin g well. She is a [employer] member here at [facility], but has not worked out here much recently. She does wish to get in the water today and I did tell her what is safe to do in the water as fa r as her shoulder is concerned. She also enjoys reading and walking. Her medical history also includes a right hip replacement. 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 OBJECTIVE: The patient ambulates into physical therapy in no acute distress, little bit slow, but safe and independent with her gait. Safe and independent with her transfers. She has a forward head, forward scapula posture, little kyphotic in her thoracic spine. She has cervical range of motion within functional limits without pa in today. She does see a chiropractor regularly for her neck. Her family doctor is Dr. Vergara. Sensation in the upper extremities within normal limits to gross light touch. Reflexes in the biceps, triceps are 2/3. She has had tenderness palpable over the right supraspinatus and biceps tendon as compared to the left side. She has a positive Nicolas- Chandan test, positive Neer impingement armando t. She has full elbow and wrist range of motion, shoulder limited to 140 degrees on the right versus 150 on the left. Abduction 145 degrees on the right, 155 on the left. Internal and external rotat ion are within normal limits. Her strength is 4- throughout her upper extremities with the exception of shoulder external rotation on the right, which is 3+ in flexion and abduction on the right, wh ich are also 3+. ASSESSMENT: At this point, the patient has right shoulder weakness and likely tendinopathy and is appropriate for physical therapy with a questionable prognosis due to her comorbi dities and the inability of us due to contraindications to utilize the modalities that can be helpful for calcific tendinitis including iontophoresis, electric stimulation, ultrasound. GOALS: 1. She will have full active range of motion of the right shoulder without pain , symmetrical to that of the left. 2. Her pain will be 0-1/10 at all times. 3. She will be able to dress, putting on her c oat and shirt without noticing pain. 4. She will be able to resume exercise safely for her own fitness. 5. She will score less than 20% disability on the DASH versus her current score of 38%. PLAN: At this point, I plan to see this patient 2 times a week for 4-6 weeks. I have educated her on appropriate posture, home exercise of scapular circles, upper extremity short lever arm elevation. In the course of her physical therapy we have talked about safe activity she can do in the water, which she is planning on getting in today. Our treatment and physical therapy will consist of glenohum eral mobilizations, passive range of motion and strengthening the rotator cuff and postural muscles, progress to an independent program when appropriate. She was agreeable to this course of therapy. We may also use moist heat. Kelvin Newman, PT T: NTS JOB: [id number] <Electronically signed by Kelvin Newman > 11/24/14 0940 CC: Signed For Med icare only, by signing this I certify the plan of care. Physicians Signature Date 04-Nov-2014 Abdomen Single View Result: Comments: See Note; NOTES: [facility] Imaging Services [address] [place] [address] Radiology Report MR#: [id number] Acct: [id number] Name: IRIS ARRIAGA Rep #: [id number] : 1940 F 74 From: Ed Fink MD PCP: Minerva Vergara MD Status: REG CLI Study: Abdomen Single View Date of Exam: 11/04/14 Exam# [id number] Ordering Dr: Minerva Vergara MD STUDY : X-RAY - ABDOMEN/PELVIS REASON FOR EXAM: Female, 74 years old. Cramping abdominal pain and diarrhea. TECHNIQUE: AP supine and upright views of the abdomen and pelvis. COMPARISON: None. FINDINGS: There is a moderate amount of colonic fecal material. There is no demonstrated free abdominal air. A filter is seen within the inferior vena cava. There ar e calcified phleboliths in the pelvis. There are diffuse degenerative changes of the visualized lumbar spine. Levoscoliosis. Bilateral total hip replacement. IMP RESSION: Moderate amount of fecal material is seen throughout the colon. Electronically Signed: Ed Fink MD at 14:10 EDT Tel [phone], Service support [phone], Fax RAD/Abdomen Single View IMPRESSION: Moderate amount of fecal material is seen throughout the colon. Electronically Signed: Ed Fink MD at 14: 10 EDT Tel [phone], Service support [phone], CC: Minerva Vergara MD [employer] Operator: Signed 04-Nov-2014 Shoulder min 2 Views Result: Comments: See Note; NOTES: [facility] Imaging Services [address] [place] [address] Radiology Report MR#: [id number] Acct: [id number] Name: IRIS ARRIAGA Rep #: [id number] : 1940 F 74 From: Ed Fink MD PCP: Minerva Vergara MD Status: REG CLI Study: Shoulder min 2 Views Date of Exam: 11/04/14 Exam# [id number] Ordering Dr: Minerva Vergara MD STUD Y: X-RAY - RIGHT SHOULDER REASON FOR EXAM: Female, 74 years old. Shoulder pain following a recent fall. TECHNIQUE: 4 view(s) of the shoulder. COMPARISON: None. _ FINDINGS: Normal glenohumeral articulation. Normal acromioclavicular joint. Normal acromion. Normal humeral head and visualized proximal humerus. The soft tissue structures are unremarkable. Normal visualized pulmonary apex. IMPRESSION: Normal x-ray examination of the shoulder. Electronically Signed: Ed Fink MD at 14:11 EDT Tel [phone], Service support [phone], CC: Minerva Vergara MD [employer] Operator: Signed 21-Oct-2014 Echocardiogram Complete Result: Comments: See Note; NOTES: [facility] Cardiovascular Services [address] [address] Echo Complete 10/19/14 1314 MR#: [id number] Acct: [id number] Name: CATHLEEN ARRIAGA Rep #: [id number] : 1940 74 From: Gurdeep Huang MD Attending Dr: Gurdeep Huang MD Status: REG CLI Ordering Dr: Gurdeep Huang MD Date: 10/19/14 Location: [facility] Sex: F C Admitted: Procedure This was a 2D Doppler, Color Flow transthoracic echocardiogram. Exam performed in department. Left Ventricle Normal LV size. Mild to moderate global left ventricular systolic dysfunct ion. The estimated ejection fraction is 35 %. Right Ventricle Normal RV size. ICD or pacer leads identified within the right ventricle. Normal systolic function. Atria The left atrium is mildly enlarged. The right atrium is mildly enlarged. ICD or pacer leads identified within the right atrium. No doppler evidence for ASD. Mitral Valve Stable appearing bioprosthetic mitral valve apparatus . MIld (1+) transvalvular insufficiency of the mitral valve. Tricuspid Valve Normal tricuspid valve. Mild tricuspid valve insufficiency. Right ventricular systolic pressure estimated to be 49 mmH g. Aortic Valve Trisinus/trileaflet aortic valve. Normal aortic valve. Pulmonic Valve The pulmonic valve is not well visualized. Trivial pulmonic valve insufficiency. Great Vessels Normal aort ic root. Pericardium/Pleural No pericardial effusion. MMode/2D Measurements AND Calculations LVIDd: 5.0 cm IVSd: 1.3 cm Ao root diam: 3.2 cm LAV(MOD-bp): 53.7 ml LVIDs: 3.8 cm LVPWd: 1.1 cm Ao r oot area: 7.9 cm2 LAV(MOD-bp) Indexed: 27.0 ml/m2 RVDd: 3.3 cm FS: 24.5 % LA dimension: 4.0 cm LAV(MOD-sp2): 54.0 ml LAV(MOD-sp4): 54.2 ml LA A4 area: 20.9 cm2 RA A4 area: 17.6 cm2 Doppler Measurements AND Calculations MV E max shanice: MV V2 max: 216.8 cm/secMV P1/2t max shanice: Ao V2 max: 106.1 cm/sec 198.8 cm/se c MV max P.8 mmHg 220.8 cm/sec Ao max P.5 mmHg MV A max shanice: MV V2 mean: MV P1/2t: 101.2 msec 140.3 cm/sec 127.2 cm/sec MV dec slope: 638.9 cm/sec2 MV E/A: 1.4 MV mean P.3 mmHg MVA(P1/2t ): 2.2 cm2 MV V2 VTI: 59.7 cm LV V1 max: 77.4 cm/sec PA V2 max: 150.5 cm/secPI max shanice: 249.6 cm/sec TR max shanice: LV V1 max P.4 mmHg PA max P.1 mmHg PI max P.9 mmHg 332.5 cm/sec PA V2 mean: TR max P.2 mmHg 133.5 cm/sec PI dec slope: 161.3 cm/sec2 PA mean P.0 mmHg PA V2 VTI: 61.7 cm Interpretation Summary Mild to moderate global left ventricular systolic dysfunction. The estimated ejection fraction is 35 %. The left atrium is mildly enlarged. The right atrium is mildly enlarge d. Stable appearing bioprosthetic mitral valve apparatus. MIld (1+) transvalvular insufficiency of the mitral valve. Mild tricuspid valve insufficiency. Trivial pulmonic valve insufficiency. Right ventricular systolic pressure estimated to be 49 mmHg. Transmitral diastolic flow velocities suggest diastolic dysfunction ( pseudonormal pattern). ICD or pacer leads identified within the right atriu m ICD or pacer leads identified within the right ventricle. Ordering Physician: Lo Huang Performed By: Jeanine Arenas RDCS 10/19/14 174 Date Gurdeep Huang MD CC: Minerva Vergara MD; Gurdeep Huang MD Date Dictated: 10/19/14 1314 Date Transcribed: 10/19/141740 [employer] Operator: Signed 23-Sep-2014 12 Lead Electrocardiogram Result: Comments: See Note; NOTES: [facility] Cardiovascular Services [address] [place] [address] 12 Lead EKG 09/22/14 1440 MR#: [id number] Acct: [id number] Name: JARON ARRIAGA Rep #: [id number] : 1940 74 From: Peewee Cotto MD Attending Dr: Status: DEP ER Ordering Dr: Kermit Verduzco MD Date: 09/22/14 Location: ED Sex: F C Admitted: Test Reason : SYNCO PE Blood Pressure : / mmHG Vent. Rate : 070 BPM Atrial Rate : 070 BPM P-R Int : 274 ms QRS Dur : 130 ms QT Int : 456 ms P-R-T Axes : 066 -19 032 degrees QTc Int : 492 ms Sinus rhythm wit h 1st degree A-V block Left ventricular hypertrophy with QRS widening Nonspecific T wave abnormality Abnormal ECG Confirmed by PEEWEE COTTO ([id number]), manager editorial ESPERANZA MARIEE ([id number]) on 09/23/2014 2: 44:4 7 PM Referred By: TRAV Confirmed By:PEEWEE COTTO 09/23/14 1444 Date Peewee Cotto MD CC: Minerva Vergara MD Date Dictated: 09/22/14 1440 Date Transcribed: 09/22/141439 [employer] Operator: Signed 22-Sep-2014 Discharge Instruction Result: Comments: See Note; NOTES: [facility] Medical Records Department [address] [place] [address] Discharge Instruction 09/22/14 1616 MR#: [id number] Acct: [id number] Name: IRIS ARRIAGA Rep #: [id number] : 1940 74 From: Kermit Verduzco MD PCP: Minerva Vergara MD Status: DEP ER ED Disposition - Plan for ED Patient: Disposition: Home Chief Complaint: Sync ope Instructions: ED Hypotension, Orthostatic What to do if you have Problems For any increased pain, shortness of breath, bleeding, nausea or vomiting, chest pain, or any unexpected problems, co ntact your doctor. Call [facility] ( [phone]) or report to the closest Emergency Room. Call 911 if necessary. 09/22/14 172 <Electronically signed by Kermit Verduzco MD> Date Kermit Verduzco MD Cosigner Signature (If Indicated): Date CC: Minerva Vergara MD 22-Sep-2014 Emergency Department Summary Result: Comments: See Note; NOTES: [facility] Medical Records Department [address] [place] [address] Emergency Department Summary MR#: [id number] Acct: [id number] Name: IRIS ARRIAGA Rep #: [id number] : 1940 74 From: Kermit Verduzco MD PCP: Minerva Vergara MD Status: DEP ER DATE OF SERVICE: 09/22/2014 CHIEF COMPLAINT: Syncope. HISTORY OF PRESENT ILLNESS: A 74-year-old female with history of dilated cardiomyopathy, congestive heart failure, hypertension, who presents after a syncopal event. The patient was in her normal state of health and passed out today. She states over the past 5-7 days, she has had a cough with low-grade chills. She was actually seen in the office per Dr. Vergara. She had a positive influenza, but with worsening cough, she was placed on Tessalon Perles and Ceftin. She states today she has been intermittently dizzy with standing. She states she was sitting at her kitchen table and realized she had to put some dishes juarez y. She states that she stood up quickly and went over to financial services rep, 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 She states she felt acutely as if she was going to pass out and then she did have a syncopal event . She landed on her knees on the carpet and fell forward. It was witnessed by her . She did not have a prolonged loss of consciousness. She was immediately back to baseline. The patient did n ot describe any chest pain. She does not describe any sensation of ICD shock. She states this again was immediately after standing. PHYSICAL EXAMINATION: VITAL SIGNS: Blood pressure 134/75, heart r ate 72. Otherwise, vitals are unremarkable. GENERAL: This is a well-appearing female who is in no acute distress. HEENT: Head is normocephalic and atraumatic. Pupils are equal, round, and reactive. Extraocular muscles are intact. NECK: Supple. HEART: Regular rate and rhythm. LUNGS: Clear. CHEST: Nontender. ABDOMEN: Soft, nontender, and nondistended. No pulsatile mass. BACK: Nontender. EXTR EMITIES: Show no edema. NEUROLOGIC: Does not display focal deficit. EMERGENCY DEPARTMENT COURSE: The patient's symptoms did seem acutely orthostatic in nature. She had a syncopal event immediately after standing and exerting herself. She had no chest pain. There was no sensation as if her defibrillator had fired. Her EKG demonstrated sinus rhythm with first-degree block. Her chest x-ray was un remarkable. Screening labs were obtained and were unremarkable. The patient's orthostatics were positive. She went from 134/75-104/72 with symptoms of lightheadedness. I do feel this is likely the e tiology of her symptoms. With fluid, she had much improvement. I discussed the patient with Dr. Huang. He agrees with plan for discharge and close followup. The patient was instructed on oral h ydration and will be discharged. IMPRESSION: Orthostatic syncope. DISPOSITION: Discharge. Kermit Verduzco MD T: NTS JOB: [id number] 09/22/14 1725 <Electronically signed by Kermit Verduzco MD> Date Kermit Verduzco MD CC: Minerva Vergara MD Date Dictated: 09/22/141614 Date Transcribed: 09/22/141614 [employer] Operator: Signed 22-Sep-2014 Chest PA and Lateral Result: Comments: See Note; NOTES: [facility] Imaging Services [address] [place] [address] Radiology Report MR#: [id number] Acct: [id number] Name: IRIS ARRIAGA Rep #: [id number] : 1940 F 74 From: Ed Fink MD PCP: Minerva Vergara MD Status: REG ER Study: Chest PA and Lateral Date of Exam: 09/22/14 Exam# [id number] Ordering Dr: Kermit Verduzco MD ROWAN DY: X-RAY CHEST REASON FOR EXAM: Female, 74 years old. Syncope and cough. TECHNIQUE: AP and lateral views of the chest. COMPARISON: Comparison is made with prior study dated October 22, 2013. FINDINGS: EKG electrodes are seen. A left-sided dual-chamber pacemaker is seen. The lungs are clear and expanded. There is no demonstrated pleural abnormality. Maninder rnal cerclage wires and vascular clips are present from a prior sternotomy and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 bypass graft procedure (CABG). Normal mediastinum and juana. Normal visualized pulmonary arteries. There i s atherosclerotic tortuosity of the aortic arch and descending thoracic aorta. 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 [employer] Status: Active Exercise History Comments: Exercises occasionally Status: Active Living Situation Comments: , Lives with spouse Status: Active No Drug Use Status: Active Non Drinker/No Alcohol Use Status: Active Non Smoker/No Tobacco Use Status: Active Tobacco use: Never smoker. Status: Active Smoking Status Name Dates Details Never smoker Vital Signs Date Test Result Details :49 Temperature 97.8 f Comments: Method: Temporal Pulse 94 /min Comments: Pattern: Regular Respiration Rate 20 /min Comments: Pattern: Unlabored O2 SAT 97 % Comments: Room air BP Systolic 110 mm[Hg] Comments: Patient Position: Sitting; Cuff Location: Left Arm; Cuff Size: Standard BP Diastolic 72 mm[Hg] Comments: Patient Position: Sitting; Cuff Location: Left Arm; Cuff Size: Standard Weight 180 lb Height 67.3 in Body Mass Index Calculated 27.94 kg/m2 Body Surface Area Calculated 1.94 m2 :27 Temperature 97.2 f Comments: Method: Temporal Pulse 76 /min Comments: Pattern: Regular Respiration Rate 22 /min Comments: Pattern: Unlabored O2 SAT 99 % Comments: Room air BP Systolic 114 mm[Hg] Comments: Patient Position: Sitting; Cuff Location: Left Arm; Cuff Size: Standard BP Diastolic 70 mm[Hg] Comments: Patient Position: Sitting; Cuff Location: Left Arm; Cuff Size: Standard Weight 180 lb Height 67.3 in Body Mass Index Calculated 27.94 kg/m2 Body Surface Area Calculated 1.94 m2 :05 Comments: Just worked out and bp checked right when brought back -- Pulse was 107 but came down to 59 so rechecked bp then and was down to 110/72 but she is up on weight -- she was wearing shoes and said she was 174 or so at home Temperature 98.9 f Comments: Method: Temporal Pulse 59 /min Comments: Pattern: Regular Respiration Rate 16 /min Comments: Pattern: Unlabored O2 SAT 93 % Comments: Room air BP Systolic 128 mm[Hg] Comments: Patient Position: Sitting; Cuff Location: Left Arm; Cuff Size: Standard BP Diastolic 78 mm[Hg] Comments: Patient Position: Sitting; Cuff Location: Left Arm; Cuff Size: Standard Weight 179 lb Height 67.3 in Body Mass Index Calculated 27.79 kg/m2 Body Surface Area Calculated 1.94 m2 :08 Temperature 98.1 f Comments: Method: Oral Pulse 108 /min Comments: Pattern: Regular Respiration Rate 16 /min O2 SAT 94 % Comments: Room air BP Systolic 104 mm[Hg] Comments: Patient Position: Sitting BP Diastolic 72 mm[Hg] Comments: Patient Position: Sitting :44 Temperature 97.5 f Comments: Method: Temporal Pulse 61 /min Comments: Pattern: Regular Respiration Rate 16 /min Comments: Pattern: Unlabored O2 SAT 98 % Comments: Room air BP Systolic 115 mm[Hg] Comments: Patient Position: Sitting; Cuff Location: Left Arm; Cuff Size: Standard BP Diastolic 68 mm[Hg] Comments: Patient Position: Sitting; Cuff Location: Left Arm; Cuff Size: Standard Weight 173 lb Height 67.3 in Body Mass Index Calculated 26.85 kg/m2 Body Surface Area Calculated 1.91 m2 :34 Temperature 97.4 f Comments: Method: Temporal Pulse 80 /min Comments: Pattern: Regular Respiration Rate 16 /min Comments: Pattern: Unlabored BP Systolic 100 mm[Hg] Comments: Patient Position: Sitting; Cuff Location: Left Arm; Cuff Size: Standard BP Diastolic 60 mm[Hg] Comments: Patient Position: Sitting; Cuff Location: Left Arm; Cuff Size: Standard Weight 173 lb Height 67.3 in Body Mass Index Calculated 26.85 kg/m2 Body Surface Area Calculated 1.91 m2 :11 Temperature 97.6 f Comments: Method: Temporal Pulse 74 /min Comments: Pattern: Regular Respiration Rate 20 /min Comments: Pattern: Unlabored O2 SAT 97 % Comments: Room air BP Systolic 104 mm[Hg] Comments: Patient Position: Sitting; Cuff Location: Left Arm; Cuff Size: Standard BP Diastolic 68 mm[Hg] Comments: Patient Position: Sitting; Cuff Location: Left Arm; Cuff Size: Standard Weight 174 lb Height 67.3 in Body Mass Index Calculated 27.01 kg/m2 Body Surface Area Calculated 1.91 m2 :14 Temperature 97.9 f Comments: Method: Temporal Pulse 68 /min Comments: Pattern: Regular Respiration Rate 20 /min Comments: Pattern: Unlabored O2 SAT 100 % Comments: Room air BP Systolic 104 mm[Hg] Comments: Patient Position: Sitting; Cuff Location: Left Arm; Cuff Size: Standard BP Diastolic 70 mm[Hg] Comments: Patient Position: Sitting; Cuff Location: Left Arm; Cuff Size: Standard Weight 177 lb Height 68 in Body Mass Index Calculated 26.91 kg/m2 Body Surface Area Calculated 1.94 m2 :13 Temperature 97.6 f Comments: Method: Temporal Pulse 68 /min Comments: Pattern: Regular Respiration Rate 24 /min Comments: Pattern: Labored O2 SAT 97 % Comments: Room air BP Systolic 104 mm[Hg] Comments: Patient Position: Sitting; Cuff Location: Left Arm; Cuff Size: Standard BP Diastolic 72 mm[Hg] Comments: Patient Position: Sitting; Cuff Location: Left Arm; Cuff Size: Standard Weight 194 lb Height 68 in Body Mass Index Calculated 29.5 kg/m2 Body Surface Area Calculated 2.02 m2 :57 Temperature 97.6 f Comments: Method: Temporal Pulse 70 /min Comments: Pattern: Regular Respiration Rate 20 /min Comments: Pattern: Unlabored O2 SAT 97 % Comments: Room air BP Systolic 104 mm[Hg] Comments: Patient Position: Sitting; Cuff Location: Left Arm; Cuff Size: Standard BP Diastolic 70 mm[Hg] Comments: Patient Position: Sitting; Cuff Location: Left Arm; Cuff Size: Standard Weight 187 lb Height 68 in Body Mass Index Calculated 28.43 kg/m2 Body Surface Area Calculated 1.99 m2 :30 Comments: refused weight because in pain. Temperature 97.6 f Comments: Method: Temporal Pulse 58 /min Comments: Pattern: Regular Respiration Rate 20 /min Comments: Pattern: Unlabored O2 SAT 97 % Comments: Room air BP Systolic 108 mm[Hg] Comments: Patient Position: Sitting; Cuff Location: Left Arm; Cuff Size: Standard BP Diastolic 70 mm[Hg] Comments: Patient Position: Sitting; Cuff Location: Left Arm; Cuff Size: Standard Weight 182 lb Height 68 in Body Mass Index Calculated 27.67 kg/m2 Body Surface Area Calculated 1.96 m2 :42 Pulse 83 /min Comments: Pattern: Regular Respiration Rate 16 /min Comments: Pattern: Unlabored O2 SAT 98 % Comments: Room air BP Systolic 100 mm[Hg] Comments: Patient Position: Sitting; Cuff Location: Left Arm; Cuff Size: Standard BP Diastolic 72 mm[Hg] Comments: Patient Position: Sitting; Cuff Location: Left Arm; Cuff Size: Standard Weight 182 lb Height 68 in Body Mass Index Calculated 27.67 kg/m2 Body Surface Area Calculated 1.96 m2 :52 Temperature 97.9 f Comments: Method: Temporal Pulse 70 /min Comments: Pattern: Regular Respiration Rate 20 /min Comments: Pattern: Unlabored O2 SAT 100 % Comments: Room air BP Systolic 104 mm[Hg] Comments: Patient Position: Sitting; Cuff Location: Left Arm; Cuff Size: Standard BP Diastolic 70 mm[Hg] Comments: Patient Position: Sitting; Cuff Location: Left Arm; Cuff Size: Standard Weight 178 lb Height 68 in Body Mass Index Calculated 27.06 kg/m2 Body Surface Area Calculated 1.95 m2 :24 Temperature 97.6 f Comments: Method: Temporal Pulse 78 /min Comments: Pattern: Regular Respiration Rate 20 /min Comments: Pattern: Unlabored O2 SAT 94 % Comments: Room air BP Systolic 104 mm[Hg] Comments: Patient Position: Sitting; Cuff Location: Left Arm; Cuff Size: Standard BP Diastolic 70 mm[Hg] Comments: Patient Position: Sitting; Cuff Location: Left Arm; Cuff Size: Standard Weight 177 lb Height 68 in Body Mass Index Calculated 26.91 kg/m2 Body Surface Area Calculated 1.94 m2 :46 Temperature 97.9 f Comments: Method: Temporal Pulse 66 /min Comments: Pattern: Regular Respiration Rate 18 /min Comments: Pattern: Unlabored O2 SAT 100 % Comments: Room air BP Systolic 102 mm[Hg] Comments: Patient Position: Sitting; Cuff Location: Left Arm; Cuff Size: Standard BP Diastolic 70 mm[Hg] Comments: Patient Position: Sitting; Cuff Location: Left Arm; Cuff Size: Standard Weight 175 lb Height 68 in Body Mass Index Calculated 26.61 kg/m2 Body Surface Area Calculated 1.93 m2 :18 Temperature 97.6 f Comments: Method: Temporal Pulse 90 /min Comments: Pattern: Regular Respiration Rate 18 /min Comments: Pattern: Unlabored O2 SAT 97 % Comments: Room air BP Systolic 104 mm[Hg] Comments: Patient Position: Sitting; Cuff Location: Left Arm; Cuff Size: Standard BP Diastolic 70 mm[Hg] Comments: Patient Position: Sitting; Cuff Location: Left Arm; Cuff Size: Standard Weight 175 lb Height 68 in Body Mass Index Calculated 26.61 kg/m2 Body Surface Area Calculated 1.93 m2 :05 Temperature 97.6 f Comments: Method: Temporal Pulse 72 /min Comments: Pattern: Regular Respiration Rate 20 /min Comments: Pattern: Unlabored O2 SAT 97 % Comments: Room air BP Systolic 110 mm[Hg] Comments: Patient Position: Sitting; Cuff Location: Left Arm; Cuff Size: Standard BP Diastolic 70 mm[Hg] Comments: Patient Position: Sitting; Cuff Location: Left Arm; Cuff Size: Standard Weight 189 lb Height 68 in Body Mass Index Calculated 28.74 kg/m2 Body Surface Area Calculated 2 m2 :51 Temperature 97.3 f Comments: Method: Temporal Pulse 70 /min Comments: Pattern: Regular Respiration Rate 20 /min Comments: Pattern: Unlabored O2 SAT 97 % Comments: Room air BP Systolic 104 mm[Hg] Comments: Patient Position: Sitting; Cuff Location: Left Arm; Cuff Size: Standard BP Diastolic 68 mm[Hg] Comments: Patient Position: Sitting; Cuff Location: Left Arm; Cuff Size: Standard Weight 189 lb Height 68 in Body Mass Index Calculated 28.74 kg/m2 Body Surface Area Calculated 2 m2 :24 Temperature 97.6 f Comments: Method: Temporal Pulse 64 /min Comments: Pattern: Regular Respiration Rate 20 /min Comments: Pattern: Unlabored O2 SAT 98 % Comments: Room air BP Systolic 104 mm[Hg] Comments: Patient Position: Sitting; Cuff Location: Left Arm; Cuff Size: Standard BP Diastolic 70 mm[Hg] Comments: Patient Position: Sitting; Cuff Location: Left Arm; Cuff Size: Standard Weight 195 lb Height 68 in Body Mass Index Calculated 29.65 kg/m2 Body Surface Area Calculated 2.02 m2 :09 Temperature 96.8 f Comments: Method: Temporal Pulse 56 /min Comments: Pattern: Regular Respiration Rate 17 /min Comments: Pattern: Unlabored O2 SAT 98 % Comments: Room air BP Systolic 114 mm[Hg] Comments: Patient Position: Sitting; Cuff Location: Left Arm; Cuff Size: Standard BP Diastolic 78 mm[Hg] Comments: Patient Position: Sitting; Cuff Location: Left Arm; Cuff Size: Standard Weight 186 lb Height 68 in Body Mass Index Calculated 28.28 kg/m2 Body Surface Area Calculated 1.98 m2 :14 Temperature 97.8 f Comments: Method: Temporal Pulse 68 /min Comments: Pattern: Regular Respiration Rate 24 /min Comments: Pattern: Unlabored O2 SAT 97 % Comments: Room air BP Systolic 104 mm[Hg] Comments: Patient Position: Sitting; Cuff Location: Left Arm; Cuff Size: Standard BP Diastolic 70 mm[Hg] Comments: Patient Position: Sitting; Cuff Location: Left Arm; Cuff Size: Standard Weight 192 lb Height 68 in Body Mass Index Calculated 29.19 kg/m2 Body Surface Area Calculated 2.01 m2 :41 Temperature 97.6 f Comments: Method: Temporal Pulse 80 /min Comments: Pattern: Regular Respiration Rate 20 /min Comments: Pattern: Unlabored O2 SAT 99 % Comments: Room air BP Systolic 104 mm[Hg] Comments: Patient Position: Sitting; Cuff Location: Left Arm; Cuff Size: Standard BP Diastolic 70 mm[Hg] Comments: Patient Position: Sitting; Cuff Location: Left Arm; Cuff Size: Standard Weight 192 lb Height 68 in Body Mass Index Calculated 29.19 kg/m2 Body Surface Area Calculated 2.01 m2 :34 Temperature 98 f Pulse 76 /min Comments: Pattern: Regular Respiration Rate 16 /min Comments: Pattern: Unlabored O2 SAT 97 % Comments: Room air BP Systolic 118 mm[Hg] Comments: Patient Position: Sitting; Cuff Location: Left Arm; Cuff Size: Standard BP Diastolic 78 mm[Hg] Comments: Patient Position: Sitting; Cuff Location: Left Arm; Cuff Size: Standard Weight 192 lb Height 68 in Body Mass Index Calculated 29.19 kg/m2 Body Surface Area Calculated 2.01 m2 :15 Temperature 97.6 f Comments: Method: Temporal Pulse 64 /min Comments: Pattern: Regular Respiration Rate 20 /min Comments: Pattern: Unlabored O2 SAT 95 % Comments: Room air BP Systolic 100 mm[Hg] Comments: Patient Position: Sitting; Cuff Location: Left Arm; Cuff Size: Standard BP Diastolic 70 mm[Hg] Comments: Patient Position: Sitting; Cuff Location: Left Arm; Cuff Size: Standard Weight 192 lb Height 68 in Body Mass Index Calculated 29.19 kg/m2 Body Surface Area Calculated 2.01 m2 :39 Temperature 97.9 f Comments: Method: Temporal Pulse 90 /min Comments: Pattern: Regular Respiration Rate 20 /min Comments: Pattern: Unlabored O2 SAT 95 % Comments: Room air BP Systolic 104 mm[Hg] Comments: Patient Position: Sitting; Cuff Location: Left Arm; Cuff Size: Large BP Diastolic 74 mm[Hg] Comments: Patient Position: Sitting; Cuff Location: Left Arm; Cuff Size: Large Weight 192 lb Height 68 in Body Mass Index Calculated 29.19 kg/m2 Body Surface Area Calculated 2.01 m2 :50 Temperature 97.6 f Comments: Method: Temporal Pulse 70 /min Comments: Pattern: Regular Respiration Rate 20 /min Comments: Pattern: Unlabored O2 SAT 97 % Comments: Room air BP Systolic 114 mm[Hg] Comments: Patient Position: Sitting; Cuff Location: Left Arm; Cuff Size: Standard BP Diastolic 78 mm[Hg] Comments: Patient Position: Sitting; Cuff Location: Left Arm; Cuff Size: Standard Weight 181 lb Height 68 in Body Mass Index Calculated 27.52 kg/m2 Body Surface Area Calculated 1.96 m2 :03 Temperature 97.6 f Comments: Method: Temporal Pulse 74 /min Comments: Pattern: Regular Respiration Rate 20 /min Comments: Pattern: Unlabored O2 SAT 97 % Comments: Room air BP Systolic 120 mm[Hg] Comments: Patient Position: Sitting; Cuff Location: Left Arm; Cuff Size: Standard BP Diastolic 76 mm[Hg] Comments: Patient Position: Sitting; Cuff Location: Left Arm; Cuff Size: Standard Weight 181 lb Height 68 in Body Mass Index Calculated 27.52 kg/m2 Body Surface Area Calculated 1.96 m2 :38 Temperature 97.3 f Pulse 70 /min Comments: Pattern: Regular Respiration Rate 17 /min Comments: Pattern: Unlabored O2 SAT 98 % Comments: Room air BP Systolic 118 mm[Hg] Comments: Patient Position: Sitting; Cuff Location: Left Arm; Cuff Size: Standard BP Diastolic 80 mm[Hg] Comments: Patient Position: Sitting; Cuff Location: Left Arm; Cuff Size: Standard Weight 183 lb Height 69.5 in Body Mass Index Calculated 26.64 kg/m2 Body Surface Area Calculated 2 m2 :00 Temperature 97.7 f Comments: Method: Tympanic Pulse 73 /min Comments: Pattern: Regular Respiration Rate 18 /min Comments: Pattern: Unlabored O2 SAT 96 % Comments: Room air BP Systolic 102 mm[Hg] Comments: Patient Position: Sitting; Cuff Location: Left Arm; Cuff Size: Standard BP Diastolic 58 mm[Hg] Comments: Patient Position: Sitting; Cuff Location: Left Arm; Cuff Size: Standard Weight 183 lb Height 69.5 in Body Mass Index Calculated 26.64 kg/m2 Body Surface Area Calculated 2 m2 :12 Temperature 97.3 f Comments: Method: Temporal Pulse 72 /min Comments: Pattern: Regular Respiration Rate 16 /min Comments: Pattern: Unlabored O2 SAT 98 % Comments: Room air BP Systolic 92 mm[Hg] Comments: Patient Position: Sitting; Cuff Location: Left Arm; Cuff Size: Standard BP Diastolic 68 mm[Hg] Comments: Patient Position: Sitting; Cuff Location: Left Arm; Cuff Size: Standard Weight 184 lb Height 69.5 in Body Mass Index Calculated 26.78 kg/m2 Body Surface Area Calculated 2 m2 :19 Temperature 97.6 f Comments: Method: Temporal Pulse 74 /min Comments: Pattern: Regular Respiration Rate 20 /min Comments: Pattern: Unlabored O2 SAT 97 % Comments: Room air BP Systolic 120 mm[Hg] Comments: Patient Position: Sitting; Cuff Location: Left Arm; Cuff Size: Standard BP Diastolic 80 mm[Hg] Comments: Patient Position: Sitting; Cuff Location: Left Arm; Cuff Size: Standard Weight 182 lb Height 69.5 in Body Mass Index Calculated 26.49 kg/m2 Body Surface Area Calculated 2 m2 :13 Pulse 81 /min Comments: Pattern: Regular Respiration Rate 18 /min Comments: Pattern: Unlabored O2 SAT 97 % Comments: Room air BP Systolic 110 mm[Hg] Comments: Patient Position: Sitting; Cuff Location: Left Arm; Cuff Size: Standard BP Diastolic 60 mm[Hg] Comments: Patient Position: Sitting; Cuff Location: Left Arm; Cuff Size: Standard Weight 178 lb Height 69.5 in Body Mass Index Calculated 25.91 kg/m2 Body Surface Area Calculated 1.98 m2 :52 Temperature 98.6 f Comments: Method: Temporal Pulse 60 /min Comments: Pattern: Regular Respiration Rate 18 /min Comments: Pattern: Unlabored O2 SAT 96 % Comments: Room air BP Systolic 142 mm[Hg] Comments: Patient Position: Sitting; Cuff Location: Left Arm; Cuff Size: Standard BP Diastolic 76 mm[Hg] Comments: Patient Position: Sitting; Cuff Location: Left Arm; Cuff Size: Standard Weight 178 lb Height 69.5 in Body Mass Index Calculated 25.91 kg/m2 Body Surface Area Calculated 1.98 m2 :38 Temperature 96.9 f Comments: Method: Temporal Pulse 78 /min Comments: Pattern: Regular Respiration Rate 17 /min Comments: Pattern: Unlabored O2 SAT 96 % Comments: Room air BP Systolic 90 mm[Hg] Comments: Patient Position: Sitting; Cuff Location: Left Arm; Cuff Size: Standard BP Diastolic 72 mm[Hg] Comments: Patient Position: Sitting; Cuff Location: Left Arm; Cuff Size: Standard Weight 179 lb Height 69.5 in Body Mass Index Calculated 26.05 kg/m2 Body Surface Area Calculated 1.98 m2 :45 Temperature 97.6 f Comments: Method: Temporal Pulse 70 /min Comments: Pattern: Regular Respiration Rate 18 /min Comments: Pattern: Unlabored O2 SAT 97 % Comments: Room air BP Systolic 104 mm[Hg] Comments: Patient Position: Sitting; Cuff Location: Left Arm; Cuff Size: Standard BP Diastolic 68 mm[Hg] Comments: Patient Position: Sitting; Cuff Location: Left Arm; Cuff Size: Standard Weight 179 lb Height 69.5 in Body Mass Index Calculated 26.05 kg/m2 Body Surface Area Calculated 1.98 m2 :27 Temperature 96.8 f Comments: Method: Temporal Pulse 88 /min Comments: Pattern: Regular Respiration Rate 17 /min Comments: Pattern: Unlabored O2 SAT 99 % Comments: Room air BP Systolic 90 mm[Hg] Comments: Patient Position: Sitting; Cuff Location: Left Arm; Cuff Size: Standard BP Diastolic 70 mm[Hg] Comments: Patient Position: Sitting; Cuff Location: Left Arm; Cuff Size: Standard Weight 179 lb Height 69.5 in Body Mass Index Calculated 26.05 kg/m2 Body Surface Area Calculated 1.98 m2 :14 Temperature 97.6 f Comments: Method: Temporal Pulse 70 /min Comments: Pattern: Regular Respiration Rate 20 /min Comments: Pattern: Unlabored O2 SAT 94 % Comments: Room air BP Systolic 110 mm[Hg] Comments: Patient Position: Sitting; Cuff Location: Left Arm; Cuff Size: Standard BP Diastolic 68 mm[Hg] Comments: Patient Position: Sitting; Cuff Location: Left Arm; Cuff Size: Standard Weight 179 lb Height 69.5 in Body Mass Index Calculated 26.05 kg/m2 Body Surface Area Calculated 1.98 m2 :19 Temperature 97.6 f Comments: Method: Tympanic Pulse 72 /min Comments: Pattern: Regular Respiration Rate 16 /min Comments: Pattern: Unlabored O2 SAT 95 % Comments: Room air BP Systolic 98 mm[Hg] Comments: Patient Position: Sitting; Cuff Location: Left Arm; Cuff Size: Standard BP Diastolic 60 mm[Hg] Comments: Patient Position: Sitting; Cuff Location: Left Arm; Cuff Size: Standard Weight 183 lb Height 69.5 in Body Mass Index Calculated 26.64 kg/m2 Body Surface Area Calculated 2 m2 :24 Temperature 97.5 f Comments: Method: Temporal Pulse 82 /min Comments: Pattern: Regular Respiration Rate 18 /min Comments: Pattern: Unlabored O2 SAT 99 % Comments: Room air BP Systolic 130 mm[Hg] Comments: Patient Position: Sitting; Cuff Location: Left Arm; Cuff Size: Standard BP Diastolic 82 mm[Hg] Comments: Patient Position: Sitting; Cuff Location: Left Arm; Cuff Size: Standard Weight 179 lb Height 69.5 in Body Mass Index Calculated 26.05 kg/m2 Body Surface Area Calculated 1.98 m2 :40 Temperature 97.9 f Comments: Method: Temporal Pulse 70 /min Comments: Pattern: Regular Respiration Rate 20 /min Comments: Pattern: Unlabored O2 SAT 92 % Comments: Room air BP Systolic 126 mm[Hg] Comments: Patient Position: Sitting; Cuff Location: Left Arm; Cuff Size: Standard BP Diastolic 80 mm[Hg] Comments: Patient Position: Sitting; Cuff Location: Left Arm; Cuff Size: Standard Weight 177 lb Height 69.5 in Body Mass Index Calculated 25.76 kg/m2 Body Surface Area Calculated 1.97 m2 [id number] Comments: sitting- spo2 on 2L- 89% P66 142/90standing- spo2 on 2L-81% P 72 140/104 Temperature 97 f Comments: Method: Oral Pulse 70 /min Comments: Pattern: Regular Respiration Rate 18 /min Comments: Pattern: Unlabored O2 SAT 96 % Comments: Room air BP Systolic 140 mm[Hg] Comments: Patient Position: Sitting; Cuff Location: Left Arm; Cuff Size: Standard BP Diastolic 90 mm[Hg] Comments: Patient Position: Sitting; Cuff Location: Left Arm; Cuff Size: Standard Weight 177 lb Height 69.5 in Body Mass Index Calculated 25.76 kg/m2 Body Surface Area Calculated 1.97 m2 :11 Temperature 97.8 f Pulse 77 /min Comments: Pattern: Regular Respiration Rate 16 /min Comments: Pattern: Unlabored O2 SAT 98 % Comments: Room air BP Systolic 102 mm[Hg] Comments: Patient Position: Sitting; Cuff Location: Left Arm; Cuff Size: Standard BP Diastolic 64 mm[Hg] Comments: Patient Position: Sitting; Cuff Location: Left Arm; Cuff Size: Standard Weight 177 lb Height 69.5 in Body Mass Index Calculated 25.76 kg/m2 Body Surface Area Calculated 1.97 m2 :18 Temperature 98.4 f Comments: Method: Temporal Pulse 78 /min Comments: Pattern: Regular Respiration Rate 20 /min Comments: Pattern: Unlabored O2 SAT 96 % Comments: Room air BP Systolic 122 mm[Hg] Comments: Patient Position: Sitting; Cuff Location: Left Arm; Cuff Size: Standard BP Diastolic 74 mm[Hg] Comments: Patient Position: Sitting; Cuff Location: Left Arm; Cuff Size: Standard Weight 177 lb Height 69.5 in Body Mass Index Calculated 25.76 kg/m2 Body Surface Area Calculated 1.97 m2 :05 Temperature 97 f Pulse 73 /min Comments: Pattern: Regular Respiration Rate 16 /min Comments: Pattern: Unlabored O2 SAT 94 % Comments: Room air BP Systolic 102 mm[Hg] Comments: Patient Position: Sitting; Cuff Location: Left Arm; Cuff Size: Standard BP Diastolic 72 mm[Hg] Comments: Patient Position: Sitting; Cuff Location: Left Arm; Cuff Size: Standard Weight 177 lb Height 69.5 in Body Mass Index Calculated 25.76 kg/m2 Body Surface Area Calculated 1.97 m2 :31 Pulse 70 /min Comments: Pattern: Regular Respiration Rate 16 /min Comments: Pattern: Unlabored O2 SAT 98 % Comments: Room air BP Systolic 98 mm[Hg] Comments: Patient Position: Sitting; Cuff Location: Left Arm; Cuff Size: Standard BP Diastolic 68 mm[Hg] Comments: Patient Position: Sitting; Cuff Location: Left Arm; Cuff Size: Standard Weight 177 lb Height 69.5 in Body Mass Index Calculated 25.76 kg/m2 Body Surface Area Calculated 1.97 m2 :33 Temperature 97.5 f Pulse 75 /min Comments: Pattern: Regular Respiration Rate 18 /min Comments: Pattern: Unlabored O2 SAT 98 % Comments: Room air BP Systolic 118 mm[Hg] Comments: Patient Position: Sitting; Cuff Location: Left Arm; Cuff Size: Standard BP Diastolic 82 mm[Hg] Comments: Patient Position: Sitting; Cuff Location: Left Arm; Cuff Size: Standard Weight 177 lb Height 69.5 in Body Mass Index Calculated 25.76 kg/m2 Body Surface Area Calculated 1.97 m2 :47 Temperature 97 f Comments: Method: Temporal Pulse 99 /min Comments: Pattern: Regular Respiration Rate 16 /min Comments: Pattern: Unlabored O2 SAT 98 % Comments: Room air BP Systolic 100 mm[Hg] Comments: Patient Position: Sitting; Cuff Location: Left Arm; Cuff Size: Standard BP Diastolic 68 mm[Hg] Comments: Patient Position: Sitting; Cuff Location: Left Arm; Cuff Size: Standard Weight 177 lb Height 69.5 in Body Mass Index Calculated 25.76 kg/m2 Body Surface Area Calculated 1.97 m2 :41 Temperature 96.8 f Comments: Method: Oral Pulse 63 /min Comments: Pattern: Regular Respiration Rate 16 /min Comments: Pattern: Unlabored O2 SAT 98 % Comments: Room air BP Systolic 126 mm[Hg] Comments: Patient Position: Sitting; Cuff Location: Left Arm; Cuff Size: Standard BP Diastolic 72 mm[Hg] Comments: Patient Position: Sitting; Cuff Location: Left Arm; Cuff Size: Standard Weight 177 lb Height 69.5 in Body Mass Index Calculated 25.76 kg/m2 Body Surface Area Calculated 1.97 m2 :07 Temperature 97.1 f Comments: Method: Oral Pulse 67 /min Comments: Pattern: Regular Respiration Rate 17 /min Comments: Pattern: Unlabored BP Systolic 112 mm[Hg] Comments: Patient Position: Sitting; Cuff Location: Left Arm; Cuff Size: Standard BP Diastolic 76 mm[Hg] Comments: Patient Position: Sitting; Cuff Location: Left Arm; Cuff Size: Standard Weight 177 lb Height 69.5 in Body Mass Index Calculated 25.76 kg/m2 Body Surface Area Calculated 1.97 m2 :33 Temperature 97.2 f Comments: Method: Tympanic Pulse 51 /min Comments: Pattern: Regular Respiration Rate 18 /min Comments: Pattern: Unlabored O2 SAT 97 % Comments: Room air BP Systolic 122 mm[Hg] Comments: Patient Position: Sitting; Cuff Location: Left Arm; Cuff Size: Standard BP Diastolic 74 mm[Hg] Comments: Patient Position: Sitting; Cuff Location: Left Arm; Cuff Size: Standard Weight 177 lb Height 69.5 in Body Mass Index Calculated 25.76 kg/m2 Body Surface Area Calculated 1.97 m2 :30 Temperature 97.1 f Comments: Method: Temporal Pulse 74 /min Comments: Pattern: Regular Respiration Rate 17 /min Comments: Pattern: Unlabored O2 SAT 97 % Comments: Room air BP Systolic 132 mm[Hg] Comments: Patient Position: Sitting; Cuff Location: Left Arm; Cuff Size: Standard BP Diastolic 78 mm[Hg] Comments: Patient Position: Sitting; Cuff Location: Left Arm; Cuff Size: Standard Weight 177 lb Height 69.5 in Body Mass Index Calculated 25.76 kg/m2 Body Surface Area Calculated 1.97 m2 :46 Pulse 77 /min Comments: Pattern: Regular Respiration Rate 20 /min Comments: Pattern: Unlabored O2 SAT 93 % Comments: Room air BP Systolic 118 mm[Hg] Comments: Patient Position: Sitting; Cuff Location: Left Arm; Cuff Size: Large BP Diastolic 64 mm[Hg] Comments: Patient Position: Sitting; Cuff Location: Left Arm; Cuff Size: Large Weight 177 lb Height 69.5 in Body Mass Index Calculated 25.76 kg/m2 Body Surface Area Calculated 1.97 m2 :07 Temperature 97.8 f Pulse 71 /min Comments: Pattern: Regular Respiration Rate 16 /min Comments: Pattern: Unlabored O2 SAT 98 % Comments: Room air BP Systolic 94 mm[Hg] Comments: Patient Position: Sitting; Cuff Location: Left Arm; Cuff Size: Standard BP Diastolic 94 mm[Hg] Comments: Patient Position: Sitting; Cuff Location: Left Arm; Cuff Size: Standard Weight 177 lb Height 69.5 in Body Mass Index Calculated 25.76 kg/m2 Body Surface Area Calculated 1.97 m2 :37 Temperature 97.6 f Comments: Method: Temporal Pulse 68 /min Comments: Pattern: Regular Respiration Rate 18 /min Comments: Pattern: Unlabored O2 SAT 97 % Comments: Room air BP Systolic 110 mm[Hg] Comments: Patient Position: Sitting; Cuff Location: Left Arm; Cuff Size: Standard BP Diastolic 74 mm[Hg] Comments: Patient Position: Sitting; Cuff Location: Left Arm; Cuff Size: Standard Weight 179 lb Height 69.5 in Body Mass Index Calculated 26.05 kg/m2 Body Surface Area Calculated 1.98 m2 :22 Temperature 97.2 f Comments: Method: Oral Pulse 72 /min Comments: Pattern: Regular Respiration Rate 18 /min O2 SAT 98 % Comments: Room air BP Systolic 102 mm[Hg] Comments: Patient Position: Sitting; Cuff Location: Left Arm; Cuff Size: Standard BP Diastolic 62 mm[Hg] Comments: Patient Position: Sitting; Cuff Location: Left Arm; Cuff Size: Standard Weight 179 lb Height 69.5 in Body Mass Index Calculated 26.05 kg/m2 Body Surface Area Calculated 1.98 m2 :04 Temperature 95.6 f Comments: Method: Oral Pulse 70 /min Comments: Pattern: Regular Respiration Rate 18 /min Comments: Pattern: Unlabored O2 SAT 94 % Comments: Room air BP Systolic 102 mm[Hg] Comments: Patient Position: Sitting; Cuff Location: Left Arm; Cuff Size: Standard BP Diastolic 68 mm[Hg] Comments: Patient Position: Sitting; Cuff Location: Left Arm; Cuff Size: Standard Weight 179 lb Height 69.5 in Body Mass Index Calculated 26.05 kg/m2 Body Surface Area Calculated 1.98 m2 :37 Temperature 97.7 f Comments: Method: Oral Pulse 62 /min Comments: Pattern: Regular Respiration Rate 18 /min Comments: Pattern: Unlabored BP Systolic 90 mm[Hg] Comments: Patient Position: Sitting; Cuff Location: Left Arm; Cuff Size: Standard BP Diastolic 64 mm[Hg] Comments: Patient Position: Sitting; Cuff Location: Left Arm; Cuff Size: Standard Weight 179 lb Height 69.5 in Body Mass Index Calculated 26.05 kg/m2 Body Surface Area Calculated 1.98 m2 :18 Temperature 97.6 f Comments: Method: Oral Pulse 68 /min Comments: Pattern: Regular Respiration Rate 18 /min Comments: Pattern: Unlabored BP Systolic 104 mm[Hg] Comments: Patient Position: Sitting; Cuff Location: Left Arm; Cuff Size: Standard BP Diastolic 64 mm[Hg] Comments: Patient Position: Sitting; Cuff Location: Left Arm; Cuff Size: Standard Weight 178 lb Height 69.5 in Body Mass Index Calculated 25.91 kg/m2 Body Surface Area Calculated 1.98 m2 [id number] Temperature 97.4 f Comments: Method: Temporal BP Systolic 90 mm[Hg] Comments: Patient Position: Sitting; Cuff Location: Left Arm; Cuff Size: Standard BP Diastolic 60 mm[Hg] Comments: Patient Position: Sitting; Cuff Location: Left Arm; Cuff Size: Standard Weight 175 lb Height 69.5 in Body Mass Index Calculated 25.47 kg/m2 Body Surface Area Calculated 1.96 m2 [id number] Temperature 97.6 f Comments: Method: Temporal Pulse 78 /min Comments: Pattern: Regular Respiration Rate 16 /min Comments: Pattern: Unlabored O2 SAT 97 % Comments: Room air BP Systolic 130 mm[Hg] Comments: Patient Position: Sitting; Cuff Location: Left Arm; Cuff Size: Standard BP Diastolic 74 mm[Hg] Comments: Patient Position: Sitting; Cuff Location: Left Arm; Cuff Size: Standard Weight 175 lb Height 69.5 in Body Mass Index Calculated 25.47 kg/m2 Body Surface Area Calculated 1.96 m2 :40 Temperature 97.2 f Comments: Method: Oral Pulse 72 /min Comments: Pattern: Regular Respiration Rate 18 /min O2 SAT 94 % Comments: Room air BP Systolic 106 mm[Hg] Comments: Patient Position: Sitting; Cuff Location: Left Arm; Cuff Size: Standard BP Diastolic 68 mm[Hg] Comments: Patient Position: Sitting; Cuff Location: Left Arm; Cuff Size: Standard Weight 174 lb Height 69.5 in Body Mass Index Calculated 25.33 kg/m2 Body Surface Area Calculated 1.96 m2 [id number]:42 Temperature 97.6 f Comments: Method: Oral Pulse 68 /min Comments: Pattern: Irregular Respiration Rate 18 /min Comments: Pattern: Unlabored BP Systolic 114 mm[Hg] Comments: Patient Position: Sitting; Cuff Location: Left Arm; Cuff Size: Standard BP Diastolic 74 mm[Hg] Comments: Patient Position: Sitting; Cuff Location: Left Arm; Cuff Size: Standard Weight 174 lb Height 69.5 in Body Mass Index Calculated 25.33 kg/m2 Body Surface Area Calculated 1.96 m2 :54 Temperature 98.2 f Comments: Method: Temporal Pulse 82 /min Comments: Pattern: Regular Respiration Rate 16 /min Comments: Pattern: Unlabored O2 SAT 98 % Comments: Room air BP Systolic 122 mm[Hg] Comments: Patient Position: Sitting; Cuff Location: Left Arm; Cuff Size: Standard BP Diastolic 74 mm[Hg] Comments: Patient Position: Sitting; Cuff Location: Left Arm; Cuff Size: Standard Weight 181 lb Height 69.5 in Body Mass Index Calculated 26.35 kg/m2 Body Surface Area Calculated 1.99 m2 :17 Temperature 96.3 f Comments: Method: Temporal Pulse 710 /min Comments: Pattern: Regular Respiration Rate 16 /min Comments: Pattern: Unlabored O2 SAT 97 % Comments: Room air BP Systolic 120 mm[Hg] Comments: Patient Position: Sitting; Cuff Location: Left Arm; Cuff Size: Standard BP Diastolic 74 mm[Hg] Comments: Patient Position: Sitting; Cuff Location: Left Arm; Cuff Size: Standard Weight 181 lb Height 69.5 in Body Mass Index Calculated 26.35 kg/m2 Body Surface Area Calculated 1.99 m2 :24 Comments: whisper test -- 08/13 repeated back Temperature 97.2 f Comments: Method: Temporal Pulse 72 /min Comments: Pattern: Regular Respiration Rate 16 /min Comments: Pattern: Unlabored BP Systolic 114 mm[Hg] Comments: Patient Position: Sitting; Cuff Location: Left Arm; Cuff Size: Standard BP Diastolic 70 mm[Hg] Comments: Patient Position: Sitting; Cuff Location: Left Arm; Cuff Size: Standard Weight 183 lb Height 69.5 in Body Mass Index Calculated 26.64 kg/m2 Body Surface Area Calculated 2 m2 :45 Temperature 98.7 f Comments: Method: Oral Pulse 70 /min Comments: Pattern: Regular Respiration Rate 20 /min O2 SAT 96 % Comments: Room air BP Systolic 116 mm[Hg] Comments: Patient Position: Sitting; Cuff Location: Left Arm; Cuff Size: Standard BP Diastolic 62 mm[Hg] Comments: Patient Position: Sitting; Cuff Location: Left Arm; Cuff Size: Standard Weight 179.4 lb Height 69.5 in Body Mass Index Calculated 26.11 kg/m2 Body Surface Area Calculated 1.98 m2 :20 O2 SAT 98 % Comments: Room air :38 Temperature 97.8 f Comments: Method: Temporal Pulse 72 /min Comments: Pattern: Regular Respiration Rate 16 /min Comments: Pattern: Unlabored O2 SAT 88 % Comments: Room air BP Systolic 114 mm[Hg] Comments: Patient Position: Sitting; Cuff Location: Left Arm; Cuff Size: Standard BP Diastolic 68 mm[Hg] Comments: Patient Position: Sitting; Cuff Location: Left Arm; Cuff Size: Standard Weight 179.4 lb Height 69.5 in Body Mass Index Calculated 26.11 kg/m2 Body Surface Area Calculated 1.98 m2 :07 Temperature 98.2 f Comments: Method: Oral Pulse 58 /min Comments: Pattern: Regular Respiration Rate 20 /min Comments: Pattern: Unlabored O2 SAT 95 % Comments: Room air BP Systolic 100 mm[Hg] Comments: Patient Position: Sitting; Cuff Location: Left Arm; Cuff Size: Standard BP Diastolic 70 mm[Hg] Comments: Patient Position: Sitting; Cuff Location: Left Arm; Cuff Size: Standard Weight 184 lb Height 69.5 in Body Mass Index Calculated 26.78 kg/m2 Body Surface Area Calculated 2 m2 :47 Temperature 98 f Comments: Method: Oral Pulse 72 /min Comments: Pattern: Regular Respiration Rate 16 /min O2 SAT 98 % Comments: Room air BP Systolic 108 mm[Hg] Comments: Patient Position: Sitting; Cuff Location: Left Arm; Cuff Size: Standard BP Diastolic 74 mm[Hg] Comments: Patient Position: Sitting; Cuff Location: Left Arm; Cuff Size: Standard Weight 184 lb Height 69.5 in Body Mass Index Calculated 26.78 kg/m2 Body Surface Area Calculated 2 m2 :46 Temperature 97.8 f Comments: Method: Temporal Pulse 68 /min Comments: Pattern: Regular Respiration Rate 16 /min Comments: Pattern: Unlabored BP Systolic 114 mm[Hg] Comments: Patient Position: Sitting; Cuff Location: Left Arm; Cuff Size: Standard BP Diastolic 70 mm[Hg] Comments: Patient Position: Sitting; Cuff Location: Left Arm; Cuff Size: Standard Weight 184 lb Height 69.5 in Body Mass Index Calculated 26.78 kg/m2 Body Surface Area Calculated 2 m2 :39 Temperature 98.2 f Comments: Method: Temporal Pulse 62 /min Comments: Pattern: Regular Respiration Rate 16 /min Comments: Pattern: Unlabored BP Systolic 102 mm[Hg] Comments: Patient Position: Sitting; Cuff Location: Left Arm; Cuff Size: Standard BP Diastolic 70 mm[Hg] Comments: Patient Position: Sitting; Cuff Location: Left Arm; Cuff Size: Standard Weight 184 lb Height 69.5 in Body Mass Index Calculated 26.78 kg/m2 Body Surface Area Calculated 2 m2 :02 Temperature 98.1 f Comments: Method: Oral Pulse 68 /min Comments: Pattern: Regular Respiration Rate 18 /min Comments: Pattern: Unlabored BP Systolic 94 mm[Hg] Comments: Patient Position: Sitting; Cuff Location: Left Arm; Cuff Size: Standard BP Diastolic 64 mm[Hg] Comments: Patient Position: Sitting; Cuff Location: Left Arm; Cuff Size: Standard Weight 184 lb Height 69.5 in Body Mass Index Calculated 26.78 kg/m2 Body Surface Area Calculated 2 m2 :52 Temperature 98 f Comments: Method: Oral Pulse 64 /min Comments: Pattern: Regular Respiration Rate 20 /min Comments: Pattern: Unlabored BP Systolic 90 mm[Hg] Comments: Patient Position: Sitting; Cuff Location: Left Arm; Cuff Size: Standard BP Diastolic 60 mm[Hg] Comments: Patient Position: Sitting; Cuff Location: Left Arm; Cuff Size: Standard Weight 183 lb Height 69.5 in Body Mass Index Calculated 26.64 kg/m2 Body Surface Area Calculated 2 m2 :07 Temperature 98 f Pulse 76 /min Comments: Pattern: Regular Respiration Rate 18 /min Comments: Pattern: Unlabored BP Systolic 94 mm[Hg] Comments: Patient Position: Sitting; Cuff Location: Left Arm; Cuff Size: Large BP Diastolic 70 mm[Hg] Comments: Patient Position: Sitting; Cuff Location: Left Arm; Cuff Size: Large Weight 179 lb Height 69.5 in Body Mass Index Calculated 26.05 kg/m2 Body Surface Area Calculated 1.98 m2 :57 Temperature 97.4 f Comments: Method: Oral Pulse 80 /min Comments: Pattern: Regular Respiration Rate 20 /min Comments: Pattern: Unlabored BP Systolic 110 mm[Hg] Comments: Patient Position: Sitting; Cuff Location: Left Arm; Cuff Size: Large BP Diastolic 62 mm[Hg] Comments: Patient Position: Sitting; Cuff Location: Left Arm; Cuff Size: Large Weight 177 lb Height 69.5 in Body Mass Index Calculated 25.76 kg/m2 Body Surface Area Calculated 1.97 m2 :46 Temperature 98 f Comments: Method: Oral Pulse 64 /min Comments: Pattern: Regular Respiration Rate 20 /min Comments: Pattern: Unlabored BP Systolic 100 mm[Hg] Comments: Patient Position: Sitting; Cuff Location: Left Arm; Cuff Size: Standard BP Diastolic 64 mm[Hg] Comments: Patient Position: Sitting; Cuff Location: Left Arm; Cuff Size: Standard Weight 169 lb Height 69.5 in Body Mass Index Calculated 24.6 kg/m2 Body Surface Area Calculated 1.93 m2 :02 Temperature 97.2 f Comments: Method: Oral Pulse 76 /min Comments: Pattern: Regular Respiration Rate 16 /min Comments: Pattern: Unlabored O2 SAT 98 % Comments: Room air BP Systolic 120 mm[Hg] Comments: Patient Position: Sitting; Cuff Location: Left Arm; Cuff Size: Standard BP Diastolic 60 mm[Hg] Comments: Patient Position: Sitting; Cuff Location: Left Arm; Cuff Size: Standard Weight 169 lb Height 69.5 in Body Mass Index Calculated 24.6 kg/m2 Body Surface Area Calculated 1.93 m2 :35 Temperature 98.6 f Comments: Method: Oral Pulse 76 /min Comments: Pattern: Regular Respiration Rate 18 /min Comments: Pattern: Unlabored O2 SAT 97 % Comments: Room air BP Systolic 102 mm[Hg] Comments: Patient Position: Sitting; Cuff Location: Left Arm; Cuff Size: Standard BP Diastolic 60 mm[Hg] Comments: Patient Position: Sitting; Cuff Location: Left Arm; Cuff Size: Standard Weight 169 lb Height 69.5 in Body Mass Index Calculated 24.6 kg/m2 Body Surface Area Calculated 1.93 m2 :54 Temperature 96.6 f Comments: Method: Oral Pulse 76 /min Comments: Pattern: Regular Respiration Rate 20 /min Comments: Pattern: Unlabored O2 SAT 99 % Comments: Room air BP Systolic 90 mm[Hg] Comments: Patient Position: Sitting; Cuff Location: Left Arm; Cuff Size: Large BP Diastolic 58 mm[Hg] Comments: Patient Position: Sitting; Cuff Location: Left Arm; Cuff Size: Large Weight 169 lb Height 69.5 in Body Mass Index Calculated 24.6 kg/m2 Body Surface Area Calculated 1.93 m2 :27 Temperature 98.1 f Comments: Method: Oral Pulse 64 /min Comments: Pattern: Regular Respiration Rate 18 /min Comments: Pattern: Unlabored BP Systolic 110 mm[Hg] Comments: Patient Position: Sitting; Cuff Location: Left Arm; Cuff Size: Standard BP Diastolic 74 mm[Hg] Comments: Patient Position: Sitting; Cuff Location: Left Arm; Cuff Size: Standard Weight 167 lb Height 69.5 in Body Mass Index Calculated 24.31 kg/m2 Body Surface Area Calculated 1.92 m2 :34 Temperature 98 f Comments: Method: Oral Pulse 64 /min Comments: Pattern: Regular Respiration Rate 20 /min Comments: Pattern: Unlabored BP Systolic 120 mm[Hg] Comments: Patient Position: Sitting; Cuff Location: Left Arm; Cuff Size: Standard BP Diastolic 70 mm[Hg] Comments: Patient Position: Sitting; Cuff Location: Left Arm; Cuff Size: Standard Weight 167 lb Height 69.5 in Body Mass Index Calculated 24.31 kg/m2 Body Surface Area Calculated 1.92 m2 :52 Temperature 97.6 f Comments: Method: Oral Pulse 58 /min Comments: Pattern: Regular Respiration Rate 18 /min Comments: Pattern: Unlabored BP Systolic 94 mm[Hg] Comments: Patient Position: Sitting; Cuff Location: Left Arm; Cuff Size: Standard BP Diastolic 64 mm[Hg] Comments: Patient Position: Sitting; Cuff Location: Left Arm; Cuff Size: Standard Weight 167 lb Height 69.5 in Body Mass Index Calculated 24.31 kg/m2 Body Surface Area Calculated 1.92 m2 :07 Temperature 98.1 f Comments: Method: Oral Pulse 62 /min Comments: Pattern: Regular Respiration Rate 20 /min Comments: Pattern: Unlabored BP Systolic 98 mm[Hg] Comments: Patient Position: Sitting; Cuff Location: Left Arm; Cuff Size: Standard BP Diastolic 64 mm[Hg] Comments: Patient Position: Sitting; Cuff Location: Left Arm; Cuff Size: Standard Weight 167 lb Height 69.5 in Body Mass Index Calculated 24.31 kg/m2 Body Surface Area Calculated 1.92 m2 :16 Temperature 98.1 f Comments: Method: Oral Pulse 60 /min Comments: Pattern: Regular Respiration Rate 18 /min Comments: Pattern: Unlabored BP Systolic 90 mm[Hg] Comments: Patient Position: Sitting; Cuff Location: Left Arm; Cuff Size: Standard BP Diastolic 60 mm[Hg] Comments: Patient Position: Sitting; Cuff Location: Left Arm; Cuff Size: Standard Weight 167 lb Height 69.5 in Body Mass Index Calculated 24.31 kg/m2 Body Surface Area Calculated 1.92 m2 :34 Temperature 97.9 f Comments: Method: Oral Pulse 62 /min Comments: Pattern: Regular Respiration Rate 16 /min BP Systolic 92 mm[Hg] Comments: Patient Position: Sitting; Cuff Location: Left Arm; Cuff Size: Standard BP Diastolic 60 mm[Hg] Comments: Patient Position: Sitting; Cuff Location: Left Arm; Cuff Size: Standard Weight 163 lb Height 69.5 in Body Mass Index Calculated 23.73 kg/m2 Body Surface Area Calculated 1.9 m2 :42 Temperature 97.8 f Comments: Method: Oral Pulse 60 /min Comments: Pattern: Regular Respiration Rate 18 /min Comments: Pattern: Unlabored BP Systolic 102 mm[Hg] Comments: Patient Position: Sitting; Cuff Location: Left Arm; Cuff Size: Standard BP Diastolic 70 mm[Hg] Comments: Patient Position: Sitting; Cuff Location: Left Arm; Cuff Size: Standard Weight 163 lb Height 69.5 in Body Mass Index Calculated 23.73 kg/m2 Body Surface Area Calculated 1.9 m2 :56 Temperature 97.5 f Comments: Method: Oral Pulse 64 /min Comments: Pattern: Regular Respiration Rate 16 /min Comments: Pattern: Unlabored BP Systolic 110 mm[Hg] Comments: Patient Position: Sitting; Cuff Location: Left Arm; Cuff Size: Standard BP Diastolic 72 mm[Hg] Comments: Patient Position: Sitting; Cuff Location: Left Arm; Cuff Size: Standard Weight 163 lb Height 69.5 in Body Mass Index Calculated 23.73 kg/m2 Body Surface Area Calculated 1.9 m2 :33 Temperature 98.1 f Comments: Method: Oral Pulse 68 /min Comments: Pattern: Regular Respiration Rate 20 /min Comments: Pattern: Unlabored BP Systolic 100 mm[Hg] Comments: Patient Position: Sitting; Cuff Location: Left Arm; Cuff Size: Standard BP Diastolic 64 mm[Hg] Comments: Patient Position: Sitting; Cuff Location: Left Arm; Cuff Size: Standard Weight 163 lb Height 69.5 in Body Mass Index Calculated 23.73 kg/m2 Body Surface Area Calculated 1.9 m2 :21 Temperature 97.6 f Comments: Method: Oral Pulse 64 /min Comments: Pattern: Regular Respiration Rate 18 /min Comments: Pattern: Unlabored BP Systolic 108 mm[Hg] Comments: Patient Position: Sitting; Cuff Location: Left Arm; Cuff Size: Standard BP Diastolic 64 mm[Hg] Comments: Patient Position: Sitting; Cuff Location: Left Arm; Cuff Size: Standard Weight 163 lb Height 69.5 in Body Mass Index Calculated 23.73 kg/m2 Body Surface Area Calculated 1.9 m2 :12 Temperature 98.2 f Comments: Method: Oral Pulse 64 /min Comments: Pattern: Regular Respiration Rate 14 /min Comments: Pattern: Unlabored BP Systolic 102 mm[Hg] Comments: Patient Position: Sitting; Cuff Location: Left Arm; Cuff Size: Standard BP Diastolic 64 mm[Hg] Comments: Patient Position: Sitting; Cuff Location: Left Arm; Cuff Size: Standard Weight 163 lb Height 69.5 in Body Mass Index Calculated 23.73 kg/m2 Body Surface Area Calculated 1.9 m2 :46 Temperature 97 f Comments: Method: Oral Pulse 62 /min Comments: Pattern: Regular Respiration Rate 18 /min Comments: Pattern: Unlabored BP Systolic 92 mm[Hg] Comments: Patient Position: Sitting; Cuff Location: Left Arm; Cuff Size: Standard BP Diastolic 68 mm[Hg] Comments: Patient Position: Sitting; Cuff Location: Left Arm; Cuff Size: Standard Weight 162 lb Height 69.5 in Body Mass Index Calculated 23.58 kg/m2 Body Surface Area Calculated 1.9 m2 :29 BP Systolic 90 mm[Hg] Comments: Patient Position: Sitting; Cuff Location: Left Arm; Cuff Size: Standard BP Diastolic 60 mm[Hg] Comments: Patient Position: Sitting; Cuff Location: Left Arm; Cuff Size: Standard :39 Temperature 98.1 f Comments: Method: Oral Pulse 75 /min Comments: Pattern: Regular Respiration Rate 20 /min Comments: Pattern: Unlabored O2 SAT 100 % Comments: Room air BP Systolic 84 mm[Hg] Comments: Patient Position: Sitting; Cuff Location: Left Arm; Cuff Size: Standard BP Diastolic 58 mm[Hg] Comments: Patient Position: Sitting; Cuff Location: Left Arm; Cuff Size: Standard Weight 162 lb Height 69.5 in Body Mass Index Calculated 23.58 kg/m2 Body Surface Area Calculated 1.9 m2 :12 Temperature 97.5 f Pulse 68 /min Comments: Pattern: Regular Respiration Rate 18 /min Comments: Pattern: Unlabored BP Systolic 90 mm[Hg] Comments: Patient Position: Sitting; Cuff Location: Right Arm; Cuff Size: Large BP Diastolic 62 mm[Hg] Comments: Patient Position: Sitting; Cuff Location: Right Arm; Cuff Size: Large :38 Pulse 80 /min Comments: Pattern: Regular Respiration Rate 16 /min Comments: Pattern: Unlabored BP Systolic 122 mm[Hg] Comments: Patient Position: Sitting; Cuff Location: Left Arm; Cuff Size: Large BP Diastolic 76 mm[Hg] Comments: Patient Position: Sitting; Cuff Location: Left Arm; Cuff Size: Large Weight 162 lb :44 Temperature 93.7 f Comments: Method: Oral Pulse 64 /min Comments: Pattern: Regular Respiration Rate 16 /min Comments: Pattern: Unlabored BP Systolic 100 mm[Hg] Comments: Patient Position: Sitting; Cuff Location: Left Arm; Cuff Size: Standard BP Diastolic 72 mm[Hg] Comments: Patient Position: Sitting; Cuff Location: Left Arm; Cuff Size: Standard :53 Temperature 97.6 f Comments: Method: Oral Pulse 68 /min Comments: Pattern: Regular Respiration Rate 18 /min Comments: Pattern: Unlabored BP Systolic 80 mm[Hg] Comments: Patient Position: Sitting; Cuff Location: Left Arm; Cuff Size: Standard BP Diastolic 60 mm[Hg] Comments: Patient Position: Sitting; Cuff Location: Left Arm; Cuff Size: Standard Weight 160 lb Height 69.5 in Body Mass Index Calculated 23.29 kg/m2 Body Surface Area Calculated 1.89 m2 :55 Temperature 97.6 f Comments: Method: Oral Pulse 68 /min Comments: Pattern: Regular Respiration Rate 18 /min Comments: Pattern: Unlabored BP Systolic 104 mm[Hg] Comments: Patient Position: Sitting; Cuff Location: Left Arm; Cuff Size: Standard BP Diastolic 74 mm[Hg] Comments: Patient Position: Sitting; Cuff Location: Left Arm; Cuff Size: Standard Weight 157 lb Results Date Description Value Details :10 Basic Metabolic Profile (BMP) Comments: [facility] [id number] [place], [address] GAP 7 (Normal) Range: 5-15 CO2 35.0 mmol/L (Abnormal) Range: 21.0-32.0 CL 94 mmol/L (Abnormal) Range: 98-107 K 3.3 mmol/L (Abnormal) Range: 3.5-5.1 NA 136 mmol/L (Normal) Range: 136-145 CA 9.0 mg/dL (Normal) Range: 8.5-10.1 BUN/CRE 31.2 {RATIO} (Abnormal) Range: 10-20 Estimated CRCL 29.92 ml/min (Normal) EST GFR - AA 37 mL/min (Abnormal) Comments: GFR Calc EST GFR 30 mL/min (Abnormal) Comments: Non- GFR Calc CREAT,SERUM 1.73 mg/dL (Abnormal) Range: 0.55-1.02 Comments: The validity of the calculated GFR AND GFRAA in patients over70 years has not been determined. Clinical correlation isessential. BUN 54 mg/dL (Abnormal) Range: 7-18 GLU 113 mg/dL (Abnormal) Range: 74-106 Comments: Fasting Glucose result from 100 to 125 mg/dLsuggests IMPAIRED HOMEOSTASIS per A.D.A. criteria.Please note revised GLUCOSE reference range [id number]/02/2018. 9-Kwd-[id number]:10 CBC W/Diff, Automated Comments: [facility] [id number] [place], [place], [address] Absolute Lymph 1.12 {X10_3/ul} (Normal) Range: 0.83-4.51 Absolute Neut 6.3 {X10_3/uL} (Normal) Range: 2.0-7.7 IM GRAN % 1.200 % (Abnormal) Range: 0.0-0.9 Comments: IG% - Immature Granulocytes (promyelocytes, myelocytes andmetamyelocytes) > 1% indicates that a LEFT SHIFT is Present. BASO% 0.5 % (Normal) Range: 0-1 EO% 4.5 % (Normal) Range: 0-5 MONO% 6.8 % (Normal) Range: 0-10 LY% 13.1 % (Abnormal) Range: 19-41 NEUT% 73.9 % (Abnormal) Range: 47-70 MPV 10.2 fL (Normal) Range: 6.2-12.0 PLT 234 K/mm3 (Normal) Range: 150-450 RDW SD 53.1 fL (Abnormal) Range: 35.1-43.9 RDW CV 14.9 % (Abnormal) Range: 11.6-14.6 MCHC 32.3 {g/gl} (Normal) Range: 32-36 MCH 32.2 pg (Abnormal) Range: 27.0-32.0 MCV 99.7 fL (Abnormal) Range: 81-99 HCT 39.6 % (Normal) Range: 37-47 HGB 12.8 g/dL (Normal) Range: 12.0-15.0 RBC 3.97 {M/mm3} (Abnormal) Range: 4.2-5.4 WBC 8.5 K/mm3 (Normal) Range: 4.4-11.0 [id number]:10 Liver Profile Comments: [facility] [id number] [place], [place], [address] D BILI 0.14 mg/dL (Normal) Range: 0.00-0.30 T BILI 0.50 mg/dL (Normal) Range: 0.20-1.00 ALT 26 U/L (Normal) Range: 13-56 ALK P 78 U/L (Normal) Range: 45-117 AST 30 U/L (Normal) Range: 15-37 GLOB 4.3 g/dL (Abnormal) Range: 2.2-4.2 ALB 3.7 g/dL (Normal) Range: 3.2-5.0 T PROT 8.0 g/dL (Normal) Range: 6.4-8.2 [id number]-[id number]:10 Partial Thromboplast Time Comments: [facility] [id number] [place], [place], [id number] PTT 27.7 s (Normal) Range: 24.1-36.2 2-Pis-[id number]:10 Prothrombin Time w/INR Comments: [facility] [id number] [place], [place], [id number] INR 1.4 (Normal) PROTIME 17.1 s (Abnormal) Range: 11.7-14.9 [id number]:20 Metabolic Panel, Basic Comments: PATIENT NOT FASTINGPERFORMED BY: [facility] [id number] [place] [id number]) Calcium 9.4 mg/dL (Normal) Range: 8.7-10.3 Carbon Dioxide, Total 28 mmol/L (Normal) Range: 20-29 Comments: Please note reference interval change Chloride 96 mmol/L (Normal) Range: 96-106 Potassium 4.1 mmol/L (Normal) Range: 3.5-5.2 Sodium 140 mmol/L (Normal) Range: 134-144 BUN/Creatinine Ratio 26 (Normal) Range: 12-28 eGFR If Africn Am 46 mL/min/1.73 (Abnormal) eGFR If NonAfricn Am 40 mL/min/1.73 (Abnormal) Creatinine 1.31 mg/dL (Abnormal) Range: 0.57-1.00 BUN 34 mg/dL (Abnormal) Range: 8-27 Glucose 72 mg/dL (Normal) Range: 65-99 39-Pzl-[id number]:13 Pathology Report Comments: PERFORMED BY: CYCIN [facility] [id number] [facility] [id number] BY: KWCYT [facility] [place] Cyto [id number] [facility] [place] [id number] Clinical Information: [id number] See MATER Comments: Material submitted: .ABDOMINAL BIOPSYClinical history: .SK R/O SCC Note (Normal) Diagnosis:ABDOMINAL BIOPSY:BENIGN KERATOSIS, IRRITATED WITH SQUAMOUS PAPILLOMA FEATURES.NEGATIVE FOR DYSPLASIA AND MALIGNANCY..01/06/2018 Electronically signed: .Aiden Menard MD, PathologistGross description: .RECEIVED IN FORMALIN LABE ISABEL ARRIAGA DESIGNATED ABDOMEN IS A 1.5 X0.7 X 0.3 CM SHAVED WHITE EXOPHYTIC LESION WITH A PAPILLATED SURFACE. THESURGICAL MARGIN IS INKED BLACK. SERIALLY SECTIONED AND ENTIRELY SUBMITTEDIN ONE CASSETTE.BCO/SMIPathologist provided ICD-10:D21.4, L82.1CPT .[id number] Comprehensive Metabolic Profil Comments: [facility] [id number] [place], [id number] GAP 8 (Normal) Range: 5-15 CO2 33.0 mmol/L (Abnormal) Range: 21.0-32.0 CL 95 mmol/L (Abnormal) Range: 98-107 K 3.6 mmol/L (Normal) Range: 3.5-5.1 NA 136 mmol/L (Normal) Range: 136-145 T BILI 0.70 mg/dL (Normal) Range: 0.20-1.00 ALT 23 U/L (Normal) Range: 13-56 Comments: Please note revised ALT reference range czcfmrzeq79/28/2018. ALK P 79 U/L (Normal) Range: 45-117 AST 28 U/L (Normal) Range: 15-37 CA 9.6 mg/dL (Normal) Range: 8.5-10.1 A/G 0.9 {RATIO} (Normal) Range: 0.9-2.4 GLOB 4.4 g/dL (Abnormal) Range: 2.2-4.2 ALB 4.1 g/dL (Normal) Range: 3.2-5.0 T PROT 8.5 g/dL (Abnormal) Range: 6.4-8.2 BUN/CRE 28.3 {RATIO} (Abnormal) Range: 10-20 EST GFR - AA 43 mL/min (Abnormal) Comments: GFR Calc EST GFR 35 mL/min (Abnormal) Comments: Non- GFR Calc CREAT,SERUM 1.52 mg/dL (Abnormal) Range: 0.55-1.02 Comments: The validity of the calculated GFR AND GFRAA in patients over70 years has not been determined. Clinical correlation isessential. BUN 43 mg/dL (Abnormal) Range: 7-18 GLU 91 mg/dL (Normal) Range: 74-106 Comments: Please note revised GLUCOSE reference range jypvlxrxh72/02/2018. 67-Yvd-435352:35 Phosphorus Comments: [facility] [address] [place], [address] PHOS 4.0 mg/dL (Normal) Range: 2.5-4.9 58-Bff-328512:35 Uric Acid Comments: [facility] [address] [place], [place], [address] URIC 10.9 mg/dL (Abnormal) Range: 2.6-6.0 Comments: The drugs N-Acetylcysteine and Metamizole may falselydepress this assay. 10-Zsf-864916:19 Metabolic Panel, Comments: fax a copy to Dr. Tucker [phone] Huang [phone]; A courtesy copy of this report has been sent [phone], .PATIENT NOT FASTINGPERFORMED BY: [facility] Dub vy1499 [facility] ([id number]) x [facility] [id number] Information: HARD DRAW/BUTTERFLY ALT (SGPT) 19 [iU]/L (Normal) Range: 0-32 AST (SGOT) 34 [iU]/L (Normal) Range: 0-40 Alkaline Phosphatase, S 92 [iU]/L (Normal) Range: 39-117 Bilirubin, Total 0.5 mg/dL (Normal) Range: 0.0-1.2 A/G Ratio 1.4 (Normal) Range: 1.2-2.2 Globulin, Total 3.2 g/dL (Normal) Range: 1.5-4.5 Albumin, Serum 4.4 g/dL (Normal) Range: 3.5-4.8 Protein, Total, Serum 7.6 g/dL (Normal) Range: 6.0-8.5 Calcium, Serum 10.2 mg/dL (Normal) Range: 8.7-10.3 Carbon Dioxide, Total 26 mmol/L (Normal) Range: 18-29 Chloride, Serum 95 mmol/L (Abnormal) Range: 96-106 Potassium, Serum 4.2 mmol/L (Normal) Range: 3.5-5.2 Sodium, Serum 140 mmol/L (Normal) Range: 134-144 BUN/Creatinine Ratio 24 (Normal) Range: 12-28 eGFR If Africn Am 46 mL/min/1.73 (Abnormal) eGFR If NonAfricn Am 39 mL/min/1.73 (Abnormal) Creatinine, Serum 1.32 mg/dL (Abnormal) Range: 0.57-1.00 BUN 32 mg/dL (Abnormal) Range: 8-27 Glucose, Serum 97 mg/dL (Normal) Range: 65-99 02-Tof-700543:56 Basic Metabolic Profile (BMP) Comments: Order Date: 08/07/17Order Info: [id number] - BMPComments: now stat and prnWooOhioHealth [facility] [address] [place], [address] GAP 8 (Normal) Range: 5-15 CO2 29.0 mmol/L (Normal) Range: 21.0-32.0 CL 102 mmol/L (Normal) Range: 98-107 K 4.2 mmol/L (Normal) Range: 3.5-5.1 NA 139 mmol/L (Normal) Range: 136-145 CA 8.8 mg/dL (Normal) Range: 8.5-10.1 BUN/CRE 23.0 {RATIO} (Abnormal) Range: 10-20 EST GFR - AA 60 mL/min (Normal) Comments: GFR Calc EST GFR 50 mL/min (Abnormal) Comments: Non- GFR Calc CREAT,SERUM 1.13 mg/dL (Abnormal) Range: 0.55-1.02 Comments: The validity of the calculated GFR AND GFRAA in patients over70 years has not been determined. Clinical correlation isessential. BUN 26 mg/dL (Abnormal) Range: 7-18 GLU 80 mg/dL (Normal) Range: 70-110 24-Aat-215039:23 CREATININE FINGERSTICK Comments: [facility] LaboratoryPoint [facility] [address] [place] [address] CREATININE WB 1.3 mg/dL (Abnormal) Range: 0.55-1.02 11-Sep-20171:20 CBC WITH MANUAL DIFF Comments: PATIENT NOT FASTINGPERFORMED BY: [facility] Ohtdtv7190 [facility]el[facility] CarpioBlow[facility] [place] [id number] Information: NURSE DRAW ([id number]) Immature Grans (Abs) 0.0 {x10E3/uL} (Normal) Range: 0.0-0.1 Immature Granulocytes 0 % (Normal) Baso (Absolute) 0.0 {x10E3/uL} (Normal) Range: 0.0-0.2 Eos (Absolute) 0.4 {x10E3/uL} (Normal) Range: 0.0-0.4 Monocytes(Absolute) 0.6 {x10E3/uL} (Normal) Range: 0.1-0.9 Lymphs (Absolute) 1.0 {x10E3/uL} (Normal) Range: 0.7-3.1 Neutrophils (Absolute) 6.0 {x10E3/uL} (Normal) Range: 1.4-7.0 Basos 0 % (Normal) Eos 6 % (Normal) Monocytes 7 % (Normal) Lymphs 12 % (Normal) Neutrophils 75 % (Normal) Platelets 250 {x10E3/uL} (Normal) Range: 150-379 RDW 15.7 % (Abnormal) Range: 12.3-15.4 MCHC 32.4 g/dL (Normal) Range: 31.5-35.7 MCH 30.0 pg (Normal) Range: 26.6-33.0 MCV 93 fL (Normal) Range: 79-97 Hematocrit 40.4 % (Normal) Range: 34.0-46.6 Hemoglobin 13.1 g/dL (Normal) Range: 11.1-15.9 RBC 4.36 {x10E6/uL} (Normal) Range: 3.77-5.28 WBC 8.0 {x10E3/uL} (Normal) Range: 3.4-10.8 11-Sep-20171:20 Metabolic Panel, Comprehensive Comments: PATIENT NOT FASTINGPERFORMED BY: [facility] VinelandNlgmqp8298 [facility] [id number] ([id number]) ALT (SGPT) 11 [iU]/L (Normal) Range: 0-32 AST (SGOT) 23 [iU]/L (Normal) Range: 0-40 Alkaline Phosphatase, S 90 [iU]/L (Normal) Range: 39-117 Bilirubin, Total 0.5 mg/dL (Normal) Range: 0.0-1.2 A/G Ratio 1.3 (Normal) Range: 1.2-2.2 Globulin, Total 3.3 g/dL (Normal) Range: 1.5-4.5 Albumin, Serum 4.2 g/dL (Normal) Range: 3.5-4.8 Protein, Total, Serum 7.5 g/dL (Normal) Range: 6.0-8.5 Calcium, Serum 9.5 mg/dL (Normal) Range: 8.7-10.3 Carbon Dioxide, Total 25 mmol/L (Normal) Range: 18-29 Chloride, Serum 94 mmol/L (Abnormal) Range: 96-106 Potassium, Serum 4.2 mmol/L (Normal) Range: 3.5-5.2 Sodium, Serum 137 mmol/L (Normal) Range: 134-144 BUN/Creatinine Ratio 22 (Normal) Range: 12-28 eGFR If Africn Am 37 mL/min/1.73 (Abnormal) eGFR If NonAfricn Am 32 mL/min/1.73 (Abnormal) Creatinine, Serum 1.57 mg/dL (Abnormal) Range: 0.57-1.00 BUN 34 mg/dL (Abnormal) Range: 8-27 Glucose, Serum 101 mg/dL (Abnormal) Range: 65-99 11-Sep-20171:20 URINALYSIS ([id number]) Comments: PATIENT NOT FASTINGPERFORMED BY: [facility]6370 [facility] [id number] Microscopic Examination MICNIP (Normal) Comments: Microscopic not indicated and not performed. Nitrite, Urine Negative (Normal) Urobilinogen,Semi-Qn 1.0 mg/dL (Normal) Range: 0.2-1.0 Bilirubin Negative (Normal) Occult Blood Negative (Normal) Ketones Negative (Normal) Glucose Negative (Normal) Protein Trace (Normal) WBC Esterase Negative (Normal) Appearance Clear (Normal) Urine-Color Yellow (Normal) pH 7.0 (Normal) Range: 5.0-7.5 Specific Solon 1.018 (Normal) Range: 1.005-1.030 7-Izq-551521:34 Basic Metabolic Profile (BMP) Comments: [facility] [address] [place], [place], [id number] GAP 10 (Normal) Range: 5-15 CO2 26.0 mmol/L (Normal) Range: 21.0-32.0 CL 104 mmol/L (Normal) Range: 98-107 K 4.2 mmol/L (Normal) Range: 3.5-5.1 NA 140 mmol/L (Normal) Range: 136-145 CA 8.9 mg/dL (Normal) Range: 8.5-10.1 BUN/CRE 21.3 {RATIO} (Abnormal) Range: 10-20 EST GFR - AA 53 mL/min (Abnormal) Comments: GFR Calc EST GFR 44 mL/min (Abnormal) Comments: Non- GFR Calc CREAT,SERUM 1.27 mg/dL (Abnormal) Range: 0.55-1.02 Comments: The validity of the calculated GFR AND GFRAA in patients over70 years has not been determined. Clinical correlation isessential. BUN 27 mg/dL (Abnormal) Range: 7-18 GLU 92 mg/dL (Normal) Range: 70-110 14-Awc-806380:03 Basic Metabolic Profile (BMP) Comments: Order Date: 05/01/17Order Info: [id number] - *BMPComments: Reason:[facility] [address] [place], [address] GAP 5 (Normal) Range: 5-15 CO2 28.0 mmol/L (Normal) Range: 21.0-32.0 CL 105 mmol/L (Normal) Range: 98-107 K 4.2 mmol/L (Normal) Range: 3.5-5.1 NA 138 mmol/L (Normal) Range: 136-145 CA 8.9 mg/dL (Normal) Range: 8.5-10.1 BUN/CRE 19.7 {RATIO} (Normal) Range: 10-20 EST GFR - AA 58 mL/min (Abnormal) Comments: GFR Calc EST GFR 48 mL/min (Abnormal) Comments: Non- GFR Calc CREAT,SERUM 1.17 mg/dL (Abnormal) Range: 0.55-1.02 Comments: The validity of the calculated GFR AND GFRAA in patients over70 years has not been determined. Clinical correlation isessential. BUN 23 mg/dL (Abnormal) Range: 7-18 GLU 64 mg/dL (Abnormal) Range: 70-110 52-Nuk-093958:16 Renal function Panel ([id number]) Comments: PATIENT NOT FASTINGPERFORMED BY: [facility] VinelandEeqzjx2225 [facility] [id number] Albumin, Serum 4.3 g/dL (Normal) Range: 3.5-4.8 Phosphorus, Serum 4.3 mg/dL (Normal) Range: 2.5-4.5 Calcium, Serum 9.6 mg/dL (Normal) Range: 8.7-10.3 Carbon Dioxide, Total 23 mmol/L (Normal) Range: 18-29 Chloride, Serum 95 mmol/L (Abnormal) Range: 96-106 Potassium, Serum 5.3 mmol/L (Abnormal) Range: 3.5-5.2 Sodium, Serum 137 mmol/L (Normal) Range: 134-144 BUN/Creatinine Ratio 19 (Normal) Range: 12-28 eGFR If Africn Am 49 mL/min/1.73 (Abnormal) eGFR If NonAfricn Am 43 mL/min/1.73 (Abnormal) Creatinine, Serum 1.24 mg/dL (Abnormal) Range: 0.57-1.00 BUN 24 mg/dL (Normal) Range: 8-27 Glucose, Serum 91 mg/dL (Normal) Range: 65-99 12-Ruc-13448:15 Urinalysis, Complete Comments: Order Date: 03/31/17How was Urine Obtained? [facility] [address] [place], [address] MUCUS, URINE 0 SEEN {/hpf} (Normal) BACTERIA 0 SEEN {/hpf} (Normal) TRANSITIONAL EP 0-5 SEEN {/hpf} (Normal) Range: 0-5 SQUAM EPI 0 SEEN {/hpf} (Normal) Range: 5-10 RBC-UA 0-5 SEEN {/hpf} (Normal) Range: 0-5 WBC 0-5 SEEN {/hpf} (Normal) Range: 0-5 LEUK ESTERASE 25 /ul (Abnormal) OCCULT BLOOD-UR 10 /ul (Abnormal) NITRITE UR Negative (Normal) UROBILI Normal mg/dL (Normal) PROT DIPSTX Negative mg/dL (Normal) pH UR 7.0 (Normal) Range: 5.0 - 8.0 SP.GR. DIPSTX 1.010 (Normal) Range: 1.002-1.030 KETONE UR Negative mg/dL (Normal) BILIRUBIN URINE Negative mg/dL (Normal) GLUCOSE, UR Normal mg/dL (Normal) CLARITY Sl. Cloudy (Normal) COLOR Yellow (Normal) :45 Lactic Acid Comments: Yes/No query for Sepsis Lactate Rule [facility] [address] [place], [place], [id number] LACTIC ACID 0.8 mmol/L (Normal) Range: 0.4-2.0 :39 BNP,B-Type NATRIURETIC PEPTIDE Comments: [facility] [address] [place], [place], [id number] B-TYPE HUMBLE PEP 1017.0 pg/mL (Abnormal) Range: 0-100 :39 CBC W/Diff, Automated Comments: [facility] [address] [place], [place], [address] ANISO 1+ (Normal) Absolute Lymph 0.75 {X10_3/ul} (Abnormal) Range: 0.83-4.51 Absolute Neut 11.3 {X10_3/uL} (Abnormal) Range: 2.0-7.7 IM GRAN % 0.400 % (Normal) Range: 0.0-0.9 Comments: IG% - Immature Granulocytes (promyelocytes, myelocytes andmetamyelocytes) > 1% indicates that a LEFT SHIFT is Present. BASO% 0.1 % (Normal) Range: 0-1 EO% 1.1 % (Normal) Range: 0-5 MONO% 10.3 % (Abnormal) Range: 0-10 LY% 5.5 % (Abnormal) Range: 19-41 NEUT% 82.6 % (Abnormal) Range: 47-70 MPV 10.5 fL (Normal) Range: 6.2-12.0 PLT 158 K/mm3 (Normal) Range: 150-450 RDW SD 69.3 fL (Abnormal) Range: 35.1-43.9 RDW CV 20.3 % (Abnormal) Range: 11.6-14.6 MCHC 31.5 {g/gl} (Abnormal) Range: 32-36 MCH 29.7 pg (Normal) Range: 27.0-32.0 MCV 94.3 fL (Normal) Range: 81-99 HCT 39.4 % (Normal) Range: 37-47 HGB 12.4 g/dL (Normal) Range: 12.0-15.0 RBC 4.18 {M/mm3} (Abnormal) Range: 4.2-5.4 WBC 13.6 K/mm3 (Abnormal) Range: 4.4-11.0 :39 Comprehensive Metabolic Profil Comments: 'TROP' Serial specimen #1, #2, #3, or #4: 1[facility] [address] [place], [address] GAP 8 (Normal) Range: 5-15 CO2 26.0 mmol/L (Normal) Range: 21.0-32.0 CL 97 mmol/L (Abnormal) Range: 98-107 K 5.5 mmol/L (Abnormal) Range: 3.5-5.1 Comments: Moderate Hemolysis, Result may be falsely increased. NA 131 mmol/L (Abnormal) Range: 136-145 T BILI 1.10 mg/dL (Abnormal) Range: 0.20-1.00 ALT 23 U/L (Normal) Range: 12-78 ALK P 86 U/L (Normal) Range: 45-117 AST 37 U/L (Normal) Range: 15-37 Comments: Moderate Hemolysis, Result may be falsely increased. CA 9.0 mg/dL (Normal) Range: 8.5-10.1 A/G 1.0 {RATIO} (Normal) Range: 0.9-2.4 GLOB 4.0 g/dL (Abnormal) Range: 2.3-3.5 ALB 3.8 g/dL (Normal) Range: 3.4-5.0 T PROT 7.8 g/dL (Normal) Range: 6.4-8.2 BUN/CRE 19.9 {RATIO} (Normal) Range: 10-20 Estimated CRCL 37.21 ml/min (Normal) EST GFR - AA 45 mL/min (Abnormal) Comments: GFR Calc EST GFR 37 mL/min (Abnormal) Comments: Non- GFR Calc CREAT,SERUM 1.46 mg/dL (Abnormal) Range: 0.55-1.02 Comments: The validity of the calculated GFR AND GFRAA in patients over70 years has not been determined. Clinical correlation isessential. BUN 29 mg/dL (Abnormal) Range: 7-18 GLU 123 mg/dL (Abnormal) Range: 70-110 Comments: Fasting Glucose result from 110 to <126 mg/dLsuggests IMPAIRED HOMEOSTASIS per A.D.A. criteria. 01-Whn-99436:39 Troponin-I Comments: 'TROP' Serial specimen #1, #2, #3, or #4: 1[facility] [address] [place], [address] TROPONIN-I 0.06 ng/mL (Normal) Comments: TROPONIN-I EXPECTED VALUES <0.05 NEGATIVE 0.06 - 0.59 AT RISK OF AL > OR = 0.60 SUGGEST AL :03 Bedside Glucose Comments: [facility] LaboratoryPoint of [address] [place] [id number] BEDSIDE GLU 146 mg/dL (Abnormal) Range: 70-110 Comments: MANAGEMENT OF PATIENT CARE PER NURSING PROTOCOL 52-Yzy-447729:25 Vitamin D,25 Hydroxy Comments: Order Date: 01/17/17Order Info: [id number] - *Hepatic Function Panel3 ORDERING DOCTORS:REINA REID ORDERED: LIVER LIPIDDR.CAITLIN ORDERD: BMPMARY CIESA ORDERED: TSH, VITD, W5XLyuavboSamaritan [facility] pital Labora [address] [place], [address] Vitamin D 25-OH 35.2 ng/mL (Normal) Comments: Vitamin D 25(OH) Status Range Deficiency <20 ng/mL (50nmol/L) Insuffciency 20 - 30 ng/mL (50 - 75 nmol/L) Sufficiency 30 - 100 ng/mL (75 - 250 nmol/L) Toxicity >100 ng/mL (>250 nmol/L) 40-Kyv-530681:20 Basic Metabolic Profile (BMP) Comments: Order Date: 01/17/17Order Info: [id number] - *Hepatic Function Panel3 ORDERING DOCTORS:REINA REID ORDERED: LIVER LIPIDDR.CAITLIN ORDERD: BMPMARY CIESA ORDERED: TSH, VITD, [id number] Date: 01/17/17Order Info: [id number] - *Lipid Profile CC PCPComments: 12 hours fasting, may have water.[facility] [address] [place], [address] GAP 6 (Normal) Range: 5-15 CO2 31.0 mmol/L (Normal) Range: 21.0-32.0 CL 101 mmol/L (Normal) Range: 98-107 K 4.1 mmol/L (Normal) Range: 3.5-5.1 NA 138 mmol/L (Normal) Range: 136-145 CA 8.9 mg/dL (Normal) Range: 8.5-10.1 BUN/CRE 18.9 {RATIO} (Normal) Range: 10-20 EST GFR - AA 50 mL/min (Abnormal) Comments: GFR Calc EST GFR 42 mL/min (Abnormal) Comments: Non- GFR Calc CREAT,SERUM 1.32 mg/dL (Abnormal) Range: 0.55-1.02 Comments: The validity of the calculated GFR AND GFRAA in patients over70 years has not been determined. Clinical correlation isessential. BUN 25 mg/dL (Abnormal) Range: 7-18 GLU 109 mg/dL (Normal) Range: 70-110 22-Zlg-523822:20 Lipid Profile Comments: Order Date: 01/17/17Order Info: [id number] - *Hepatic Function Panel3 ORDERING DOCTORS:REINA REID ORDERED: LIVER LIPIDDRSTANISLAV ORDERD: BMPMEMO FRANKLIN ORDERED: TSH, VITD, [id number] Date: 01/17/17 Order Info: [id number] - *Lipid Profile CC PCPComments: 12 hours fasting, may have water.[facility] [address] [place], [address] VLDL 20 mg/dL (Normal) Range: 5-40 LDL 40 mg/dL (Normal) Range: 0-130 HDL 53 mg/dL (Normal) Comments: The drugs N-Acetylcysteine and Metamizole may falsely deressthis assay. Reference Range HDL <40 mg/dL Low HDL Cholesterol HDL >or= 60 mg/dL High HDL Cholesterol TRIG 100 mg/dL (Normal) Comments: The drugs N-Acetylcysteine and Metamizole may falsely deressthis assay.Serum Triglycerides Reference Interval Normal <150 mg/dL Borderline high 150 - 199 mg/dL High 200 - 499 mg/dL Very High > or = 500 mg/dL CHOL 113 mg/dL (Normal) Comments: <200 mg/dL Desirable 200-240 mg/dL Borderline >240 mg/dL High Risk 30-Rbw-946509:20 Liver Profile Comments: Order Date: 01/17/17Order Info: [id number] - *Hepatic Function Panel3 ORDERING DOCTORS:REINA REID ORDERED: LIVER LIPIDDR.NOVY ORDERD: BMPMARY CIESA ORDERED: TSH, VITD, [id number] Date: 01/17/17 Order Info: [id number] - *Lipid Profile CC PCPComments: 12 hours fasting, may have water.[facility] [address] [place], [place], [id number] D BILI 0.24 mg/dL (Normal) Range: 0.00-0.30 T BILI 0.60 mg/dL (Normal) Range: 0.20-1.00 ALT 27 U/L (Normal) Range: 12-78 ALK P 84 U/L (Normal) Range: 45-117 AST 27 U/L (Normal) Range: 15-37 GLOB 3.7 g/dL (Abnormal) Range: 2.3-3.5 ALB 3.8 g/dL (Normal) Range: 3.4-5.0 T PROT 7.5 g/dL (Normal) Range: 6.4-8.2 99-Jts-270595:20 T4 Free Direct Comments: Order Date: 01/17/17Order Info: [id number]- [id number] - *Hepatic Function Panel3 ORDERING DOCTORS:REINA REID ORDERED: LIVER LIPIDDR.NOVY ORDERD: BMPMARY CIESA ORDERED: TSH, VITD, [id number] Date: 01/17/17 Order Info: [id number] - *Lipid Profile CC PCPComments: 12 hours fasting, may have water.[facility] [address] [place], [place], [address] T4 FREE DIRECT 1.51 ng/dL (Abnormal) Range: 0.76-1.46 00-Wam-491285:20 Thyroid Stim Hormone (TSH) Comments: Order Date: 01/17/17Order Info: [id number] - *Hepatic Function Panel3 ORDERING DOCTORS:REINA REID ORDERED: LIVER LIPIDDR.NOVY ORDERD: BMPMARY CIESA ORDERED: TSH, VITD, V2YKytjn Date: 01/17/17Order Info: [id number] - *Lipid Profile CC PCPComments: 12 hours fasting, may have water.[facility] [address] [place], [address] TSH 3.02 {uIU/mL} (Normal) Range: 0.358-3.74 17-Vwj-761289:00 Pathology Report Comments: PERFORMED BY: KWCYT [facility] Hceoa29065 [address] [facility] [id number] BY: [facility] Dermatopathology Wxum[address] [id number] Information: [id number] See MATER Comments: Material submitted: .SHAVE BIOPSY OF RIGHT ABDOMENClinician provided ICD-10:L82.1Clinical history: . Note (Normal) Diagnosis:BENIGN VERRUCAL KERATOSIS.02/08/2017Electronically signed: .Gege Reece MD, DermatopathologistGross description: .SUBMITTED IN FORMALIN LABELED IRIS ARRIAGA AND IS DESIGNATEDRIGHT ABDOMEN IS A FRAGMENT OF FERGUSON TISSUE THAT MEASURES 1.4 X .8X .3 CM. THE MARGINS ARE INKED BLUE. THE SPECIMEN IS TRISECTEDAND SUBMITTED IN TOTO.XJW/BXSPathologist provided ICD-10:D23.5CPT .727201 13-Nml-112617:12 Basic Metabolic Profile (BMP) Comments: Order Date: 01/15/17Order Info: [id number] - *BMPComments: Reason:[facility] [address] [place], [place], [address] GAP 5 (Normal) Range: 5-15 CO2 32.0 mmol/L (Normal) Range: 21.0-32.0 CL 100 mmol/L (Normal) Range: 98-107 K 4.5 mmol/L (Normal) Range: 3.5-5.1 NA 137 mmol/L (Normal) Range: 136-145 CA 9.3 mg/dL (Normal) Range: 8.5-10.1 BUN/CRE 22.4 {RATIO} (Abnormal) Range: 10-20 EST GFR - AA 50 mL/min (Abnormal) Comments: GFR Calc EST GFR 41 mL/min (Abnormal) Comments: Non- GFR Calc CREAT,SERUM 1.34 mg/dL (Abnormal) Range: 0.55-1.02 Comments: The validity of the calculated GFR AND GFRAA in patients over70 years has not been determined. Clinical correlation isessential. BUN 30 mg/dL (Abnormal) Range: 7-18 GLU 82 mg/dL (Normal) Range: 70-110 1-Ksx-726661:04 Basic Metabolic Profile (BMP) Comments: Order Date: 01/08/17Order Info: [id number] - *BMPComments: Reason: [facility]: [facility] [address] [place], [place], [id number] GAP 11 (Normal) Range: 5-15 CO2 28.0 mmol/L (Normal) Range: 21.0-32.0 CL 96 mmol/L (Abnormal) Range: 98-107 K 3.2 mmol/L (Abnormal) Range: 3.5-5.1 NA 135 mmol/L (Abnormal) Range: 136-145 CA 8.8 mg/dL (Normal) Range: 8.5-10.1 BUN/CRE 17.8 {RATIO} (Normal) Range: 10-20 EST GFR - AA 57 mL/min (Abnormal) Comments: GFR Calc EST GFR 48 mL/min (Abnormal) Comments: Non- GFR Calc CREAT,SERUM 1.18 mg/dL (Abnormal) Range: 0.55-1.02 Comments: The validity of the calculated GFR AND GFRAA in patients over70 years has not been determined. Clinical correlation isessential. BUN 21 mg/dL (Abnormal) Range: 7-18 GLU 117 mg/dL (Abnormal) Range: 70-110 Comments: Fasting Glucose result from 110 to <126 mg/dLsuggests IMPAIRED HOMEOSTASIS per A.D.A. criteria. 48-Zwl-677217:28 Lipid Profile Comments: Order Date: 06/18/16Order Info: [id number]- [id number] - *Hepatic Function PanelLIVER AND LIPID WERE ORDERED BY ATININE LEVEL ORDERED BY Date: 06/18/16Order Info: [id number] - *Lipid Profi le CC PCPComments: 12 hours fasting, may have water.[facility] [address] [place], [place], [id number] VLDL 14 mg/dL (Normal) Range: 5-40 LDL 27 mg/dL (Normal) Range: 0-130 HDL 34 mg/dL (Abnormal) Comments: The drugs N-Acetylcysteine and Metamizole may falsely deressthis assay. Reference Range HDL <40 mg/dL Low HDL Cholesterol HDL >or= 60 mg/dL High HDL Cholesterol TRIG 72 mg/dL (Normal) Comments: The drugs N-Acetylcysteine and Metamizole may falsely deressthis assay.Serum Triglycerides Reference Interval Normal <150 mg/dL Borderline high 150 - 199 mg/dL High 200 - 499 mg/dL Very High > or = 500 mg/dL CHOL 75 mg/dL (Normal) Comments: <200 mg/dL Desirable 200-240 mg/dL Borderline >240 mg/dL High Risk 93-Wxa-636258:28 Liver Profile Comments: Order Date: 06/18/16Order Info: [id number]- [id number] - *Hepatic Function PanelLIVER AND LIPID WERE ORDERED BY ATININE LEVEL ORDERED BY Date: 06/18/16Order Info: [id number] - *Lipid Profi le CC PCPComments: 12 hours fasting, may have water.[facility] [address] [place], [place], [id number] D BILI 0.48 mg/dL (Abnormal) Range: 0.00-0.30 T BILI 1.10 mg/dL (Abnormal) Range: 0.20-1.00 ALT 62 U/L (Normal) Range: 12-78 ALK P 94 U/L (Normal) Range: 45-117 AST 59 U/L (Abnormal) Range: 15-37 GLOB 3.3 g/dL (Normal) Range: 2.3-3.5 ALB 3.7 g/dL (Normal) Range: 3.4-5.0 T PROT 7.0 g/dL (Normal) Range: 6.4-8.2 [id number] Serum Creatinine AND GFR Comments: Order Date: 06/18/16Order Info: [id number] - *Hepatic Function PanelLIVER AND LIPID WERE ORDERED BY ATININE LEVEL ORDERED BY Date: 06/18/16Order Info: [id number] - *Lipid Profi ashley SOLOMON PCPComments: 12 hours fasting, may have water.[facility] [id number] [place], [address] EST GFR - AA 52 mL/min (Abnormal) Comments: GFR Calc EST GFR 43 mL/min (Abnormal) Comments: Non- GFR Calc CREAT,SERUM 1.29 mg/dL (Abnormal) Range: 0.55-1.02 Comments: The validity of the calculated GFR AND GFRAA in patients over70 years has not been determined. Clinical correlation isessential. [id number] Anticardiolipin IgA,G,M Comments: [facility] (refer to report for specific site)refer to report for address and phone number ANTICARDIO IgA < 9 (Normal) Comments: APL U/mL 0 - 11 Negative: <12 Indeterminate: 12 - 20Low-Med Positive: >20 - 80 High Positive: >80 ANTICARDIO IgM < 9 (Normal) Comments: MPL U/mL 0 - 12 Negative: <13 Indeterminate: 13 - 20Low-Med Positive: >20 - 80 High Positive: >80 ANTICARDIO IgG < 9 (Normal) Comments: GPL U/mL 0 - 14 Negative: <15 Indeterminate: 15 - 20Low-Med Positive: >20 - 80 High Positive: >80 [id number] Comprehensive Metabolic Profil Comments: [facility] [id number] [place], [place], [id number] GAP 4 (Abnormal) Range: 5-15 CO2 26.0 mmol/L (Normal) Range: 21.0-32.0 CL 105 mmol/L (Normal) Range: 98-107 K 4.9 mmol/L (Normal) Range: 3.5-5.1 NA 135 mmol/L (Abnormal) Range: 136-145 T BILI 0.80 mg/dL (Normal) Range: 0.20-1.00 ALT 40 U/L (Normal) Range: 12-78 ALK P 78 U/L (Normal) Range: 45-117 AST 36 U/L (Normal) Range: 15-37 CA 8.9 mg/dL (Normal) Range: 8.5-10.1 A/G 1.2 {RATIO} (Normal) Range: 0.9-2.4 GLOB 3.4 g/dL (Normal) Range: 2.3-3.5 ALB 4.1 g/dL (Normal) Range: 3.4-5.0 T PROT 7.5 g/dL (Normal) Range: 6.4-8.2 BUN/CRE 20.4 {RATIO} (Abnormal) Range: 10-20 EST GFR - AA 46 mL/min (Abnormal) Comments: GFR Calc EST GFR 38 mL/min (Abnormal) Comments: Non- GFR Calc CREAT,SERUM 1.42 mg/dL (Abnormal) Range: 0.55-1.02 Comments: The validity of the calculated GFR AND GFRAA in patients over70 years has not been determined. Clinical correlation isessential. BUN 29 mg/dL (Abnormal) Range: 7-18 GLU 103 mg/dL (Normal) Range: 70-110 [id number] Fact V Leiden Mutation Comments: [facility] (refer to report for specific site)refer to report for address and phone number COMMENT (Normal) Comments: Comment:Genetic counselors are available for health care providersto discuss results at [phone] ([phone]).Methodology:DNA analysis of the Factor V gene was performed byallele-specific PCR. The d iagnostic sensitivity andspecificity is >99% for both. Molecular-based testing ishighly accurate, but as in any laboratory test, diagnosticerrors may occur. All test results must be combined withclin ical information for the most accurate interpretation.This test was developed and its performance characteristicsdetermined by [facility]. It has not been cleared or approvedby the Food and Drug Administra tion.References:Nicholas Armijo (1995). Clin Lab Med 16:169-186.Raul Cano, PhD, Cinthya May, PhD, Wilbur Clemente, PhD, RACHANAEsperanza Wen M.S., PhD, [facility]osa [facility], PhD, RACHANAChau Reynaga, PhD, [facility]LVANIAChavez Juarez PhD, [facility] FACTOR V LEIDEN (Normal) Comments: Result: Negative (no mutation found)Factor V Leiden is a specific mutation (R506Q) in the factorV gene that is associated with an increased risk of venousthrombosis. Factor V Leiden is more resistant to inactivation by activated protein C. As a result, factor Vpersists in the circulation leading to a mildhypercoagulable state. The Leiden mutation accounts for 90%-95% of APC resistance. Factor V Leiden has been reported inpatients with deep vein thrombosis, pulmonary embolus,central retinal vein occlusion, cerebral sinus thrombosisand hepatic vein thrombosis. Other risk factors to beconsidered in the workup for venous thrombosis include [id number] mutation in the factor II (prothrombin) gene,protein S and C deficiency, and antithrombin deficiencies.Anticardiolipin antibody and lupus 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 an alysismay be appropriate for certain patients, as well ashomocysteine levels.Contact your local [facility] for information on how to orderadditional testing if desired. 80-Lsn-182803:36 Factor II, DNA Analysis Comments: [facility] (refer to report for specific site)refer to report for address and phone number COMMENT (Normal) Comments: Additional Information:Genetic Counselors are available for health care providersto discuss results at [phone]).Methodology:DNA analysis of the Factor II gene was performed by Louis grewal followed by restriction analysis. Thediagnostic sensitivity is >99% for both. All the tests mustbe combined with clinical information for the most accurateinterpretation. Molecular-based testing is highly accurate,but as in any laboratory test, diagnostic errors may occur.This test was developed and its performance characteristicsdetermined by [employer]. It has not been cleared or approvedby the Food and Drug Administration.Poort SR, et al. Blood. 1996; 88:4431-8002.Robert ARAIZA. Circulation. 2004; 110:e15-e18.Stanislav Tucker, et al. Arterioscler Thromb Vasc Biol. 1999;19:700-703.Raul Cano, Ph D, [facility]ASavana aMy, PhD, Wilbur Clemente, PhD, Marly Wen M.S., PhD, [facility]AQUAHHeath [address], PhD, [facility] ISSAQUAHCabrera Reynaga, PhD, [facility]IAChavez Juarez, PhD, [facility] COMMENT (Normal) Comments: Comment:A point mutation ([id number]) in the factor II (prothrombin)gene is the second most common cause of inheritedthrombophilia. The incidence of this mutation in the [place] population is about 2 % and in the Americanpopulation it is approximately 0.5%. This mutation israre in the and population. Beingheterozygous for a prothrombin mutation increases the riskfor dev eloping venous thrombosis about 2 to 3 times abovethe general population risk. Being homozygous for theprothrombin gene mutation increases the relative risk forvenous thrombosis further, although it is not yet known howmuch further the risk is increased. In women heterozygousfor the prothrombin gene mutation, the use of estrogencontaining oral contraceptives increases the relative riskof venous thromb osis about 16 times and the risk ofdeveloping cerebral thrombosis is also significantlyincreased. In the prothrombin gene mutationincreases risk for venous thrombosis and may increase riskfor stillbirth, placental abruption, pre-eclampsia and fetalgrowth restriction. If the patient possesses two or morecongenital or acquired thrombophilic risk factors, the riskfor thrombosis may rise to more than the sum of the riskratios for the individual mutations. This assay detects onlythe prothrombin E07358A mutation and does not measuregenetic abnormalities elsewhere in the genome. Otherthrombotic r isk factors may be pursued through systematicclinical laboratory analysis. These factors include pxbY002P (Leiden) mutation in the Factor V gene, plasmahomocysteine levels, as well as testing for defici encies ofantithrombin III, protein C and protein S. FACTOR II,DNA (Normal) Comments: Factor II, DNA Analysis NEGATIVE No mutation identified. :36 Partial Thromboplast Time Comments: [facility] [address] [place], [id number] PTT 28.3 s (Normal) Range: 24.1-36.2 36-Lsj-680033:36 Prothrombin Time w/INR Comments: [facility] [address] [place], [address] INR 1.3 (Normal) PROTIME 15.5 s (Abnormal) Range: 11.7-14.9 :39 CBC W/Diff, Automated Comments: Order Date: 12/02/16Order Info: [id number] - CBCDComments: coipy to Dr. jessie armendariz statOrder Date: 12/02/16Order Info: [id number] - CBCDComments: coipy to Dr. jessie armendariz statOrder Date: 12/02/16O rder Info: [id number] - LIVERComments: to stat copy to Dr. natalie armendarizSamaritan Healthcaresaroj [facility] [address] [place], [address] Absolute Lymph 1.13 {X10_3/ul} (Normal) Range: 0.83-4.51 Absolute Neut 6.5 {X10_3/uL} (Normal) Range: 2.0-7.7 IM GRAN % 0.200 % (Normal) Range: 0.0-0.9 Comments: IG% - Immature Granulocytes (promyelocytes, myelocytes andmetamyelocytes) > 1% indicates that a LEFT SHIFT is Present. BASO% 0.5 % (Normal) Range: 0-1 EO% 3.6 % (Normal) Range: 0-5 MONO% 9.2 % (Normal) Range: 0-10 LY% 12.9 % (Abnormal) Range: 19-41 NEUT% 73.6 % (Abnormal) Range: 47-70 MPV 10.0 fL (Normal) Range: 6.2-12.0 PLT 189 K/mm3 (Normal) Range: 150-450 RDW SD 57.7 fL (Abnormal) Range: 35.1-43.9 RDW CV 15.9 % (Abnormal) Range: 11.6-14.6 MCHC 31.2 {g/gl} (Abnormal) Range: 32-36 MCH 31.3 pg (Normal) Range: 27.0-32.0 MCV 100.5 fL (Abnormal) Range: 81-99 HCT 40.1 % (Normal) Range: 37-47 HGB 12.5 g/dL (Normal) Range: 12.0-15.0 RBC 3.99 {M/mm3} (Abnormal) Range: 4.2-5.4 WBC 8.8 K/mm3 (Normal) Range: 4.4-11.0 49-Ego-42910:39 Liver Profile Comments: Order Date: 12/02/16Order Info: [id number] - LIVEROrder Date: 12/02/16Order Info: [id number] - LIVERComments: to stat copy to Dr. estrada [facility] [address] [place] [address], [id number] D BILI 0.28 mg/dL (Normal) Range: 0.00-0.30 T BILI 0.80 mg/dL (Normal) Range: 0.20-1.00 ALT 33 U/L (Normal) Range: 12-78 ALK P 71 U/L (Normal) Range: 45-117 AST 30 U/L (Normal) Range: 15-37 GLOB 2.9 g/dL (Normal) Range: 2.3-3.5 ALB 3.8 g/dL (Normal) Range: 3.4-5.0 T PROT 6.7 g/dL (Normal) Range: 6.4-8.2 59-Yck-797631:38 URINE DAR CULTURE (NOREEN Comments: PATIENT NOT FASTINGPERFORMED BY: [facility] Vmijbx6443 [facility] [id number] Information: SRC:ANDREW COL COUNT) (95181) Antimicrobial MIHEAD (Normal) Comments: S = Susceptible; I = Intermediate; R = Resistant P = Positive; N = Negative MICS are expressed in micrograms per mL Antibiotic RSLT#1 RSLT#2 RS Susceptibility LT#3 RSLT#4Amoxicillin/Clavulanic Acid SAmpicillin SCefepime SCeftriaxone SCefuroxime SCephalothin SCiprofloxacin SErtapenem SGentamicin SImipenem SLevofloxacin SNitrofurantoin SPipera cillin STetracycline STobramycin STrimethoprim/Sulfa S Result 1 Escherichia coli Comments: 600 Colonies/mL (Abnormal) Urine Final report Culture,Comprehensive (Abnormal) 75-Gpz-63187:33 CBC W/Diff, Automated Comments: Order Date: 10/31/16Order Info: [id number] - CBCDOrder Info: [id number] - SEDOrder Date: 10/31/16Order Info: [id number] - CBCDOrder Info: [id number] - SEDOrder Date: 10/31/16Order Info: 3040-3 - LIPASEW [facility] S[address]4481 [place], [address] Absolute Lymph 1.10 {X10_3/ul} (Normal) Range: 0.83-4.51 Absolute Neut 8.6 {X10_3/uL} (Abnormal) Range: 2.0-7.7 IM GRAN % 0.100 % (Normal) Range: 0.0-0.9 Comments: IG% - Immature Granulocytes (promyelocytes, myelocytes andmetamyelocytes) > 1% indicates that a LEFT SHIFT is Present. BASO% 0.3 % (Normal) Range: 0-1 EO% 3.0 % (Normal) Range: 0-5 MONO% 9.5 % (Normal) Range: 0-10 LY% 9.9 % (Abnormal) Range: 19-41 NEUT% 77.2 % (Abnormal) Range: 47-70 MPV 10.5 fL (Normal) Range: 6.2-12.0 PLT 212 K/mm3 (Normal) Range: 150-450 RDW SD 62.3 fL (Abnormal) Range: 35.1-43.9 RDW CV 16.8 % (Abnormal) Range: 11.6-14.6 MCHC 31.9 {g/gl} (Abnormal) Range: 32-36 MCH 32.3 pg (Abnormal) Range: 27.0-32.0 MCV 101.5 fL (Abnormal) Range: 81-99 HCT 41.1 % (Normal) Range: 37-47 HGB 13.1 g/dL (Normal) Range: 12.0-15.0 RBC 4.05 {M/mm3} (Abnormal) Range: 4.2-5.4 WBC 11.1 K/mm3 (Abnormal) Range: 4.4-11.0 02-Ixh-05676:33 Comprehensive Metabolic Profil Comments: Order Date: 10/31/16Order Info: [id number] - CMPOrder Info: [id number] - AMYOrder Info: 3040-3 - LIPASEOrder Date: 10/31/16Order Info: 3040-3 - LIPASEComments: all [facility] [address]pm[address] [place], [place], [id number] GAP 10 (Normal) Range: 5-15 CO2 26.0 mmol/L (Normal) Range: 21.0-32.0 CL 102 mmol/L (Normal) Range: 98-107 K 4.4 mmol/L (Normal) Range: 3.5-5.1 NA 138 mmol/L (Normal) Range: 136-145 T BILI 0.70 mg/dL (Normal) Range: 0.20-1.00 ALT 33 U/L (Normal) Range: 12-78 ALK P 75 U/L (Normal) Range: 45-117 AST 29 U/L (Normal) Range: 15-37 CA 8.8 mg/dL (Normal) Range: 8.5-10.1 A/G 1.2 {RATIO} (Normal) Range: 0.9-2.4 GLOB 3.2 g/dL (Normal) Range: 2.3-3.5 ALB 4.0 g/dL (Normal) Range: 3.4-5.0 T PROT 7.2 g/dL (Normal) Range: 6.4-8.2 BUN/CRE 19.8 {RATIO} (Normal) Range: 10-20 EST GFR - AA 56 mL/min (Abnormal) Comments: GFR Calc EST GFR 46 mL/min (Abnormal) Comments: Non- GFR Calc CREAT,SERUM 1.21 mg/dL (Abnormal) Range: 0.55-1.02 Comments: The validity of the calculated GFR AND GFRAA in patients over70 years has not been determined. Clinical correlation isessential. BUN 24 mg/dL (Abnormal) Range: 7-18 GLU 86 mg/dL (Normal) Range: 70-110 :33 Erythrocyte Sed Rate Comments: Order Date: 10/31/16Order Info: [id number] - CBCDOrder Info: [id number] - SEDOrder Date: 10/31/16Order Info: [id number] - CBCDOrder Info: [id number] - SEDOrder Date: 10/31/16Order Info: 3040-3 - LIPASEW [facility] [address] [place], [place], [address] SED RATE 12 mm/h (Normal) Range: 0-30 :33 Lipase (78724) Comments: Order Date: 10/31/16Order Info: [id number]- 1 - CMPOrder Info: [id number] - AMYOrder Info: 3040-3 - LIPASEOrder Date: 10/31/16Order Info: 3040-3 - LIPASEComments: all [facility] [address] [place], [address] LIPASE 216 U/L (Normal) Range: 73-393 :33 Amylase (32044) Comments: Order Date: 10/31/16Order Info: [id number]- 1 - CMPOrder Info: [id number] - AMYOrder Info: 3040-3 - LIPASEOrder Date: 10/31/16Order Info: 3040-3 - LIPASEComments: all [facility] [address] [place], [address] QUENTIN 56 U/L (Normal) Range: 25-115 23-Zdz-76239:45 Urinalysis, Office (70859) UA - LEUKOCYTE ESTERASE Negative (Normal) UA - NITRITE Negative (Normal) URINE UROBILINGN NOREEN TIMED Normal mg/dL (Normal) UA - PROTEIN Negative mg/dL (Normal) UA - PH 6 (Abnormal) UA - BLOOD Non Hemolyzed Trace (Normal) UA - SPECIFIC GRAVITY 1.015 (Normal) UA - KETONES Negative mg/dL (Normal) UA - BILIRUBIN Negative (Normal) UA - GLUCOSE Negative (Normal) 08-Qjm-624346:00 Pathology Report Comments: PERFORMED BY: KWCYT [facility] [place] [facility] Cjhry21894 [facility] [id number] Information: [id number] See MATER Comments: Material submitted: .SHAVE BIOPSY RIGHT FLANKClinician provided ICD-10:L82.1Clinical history: .VERRUCOUS SK; GROWING LESIO Note (Normal) N EVEN AFTER CRYTOTHERAPY X 2Diagnosis:SHAVE BIOPSY RIGHT FLANK:BENIGN KERATOSIS WITH VERRUCOUS HYPERPLASIA..08/26/2016 Electronically signed: .Aiden Menard MD, PathologistGross description: .1 CONTAINER, FORMALIN-FILLED, LABELED WITH PATIENT IDENTIFICATION.SHAVE BIOPSY RIGHT FLANK:1 SHAVE OF SKIN MEASURING 1.2 X .6 X .6 CM. THE SURGICAL MARGIN ISINKED GREEN AND THE SPECIMEN IS SERIALLY SECTIONED. THE SPECIMEN ISSUBMITTED IN CASSETTE(S) A. THERE ARE 4 PIECES TOTAL./CORCOR/CORPathologist provided ICD-10:L82.1, B07.8CPT .623916 6-Jer-935169:50 Basic Metabolic Profile (BMP) Comments: DR TUCKER IS ORDERING THE BMPOrder Date: 06/28/16OV Order #: [id number] [facility] Hospital [address]thh[address] [place], [address] GAP 9 (Normal) Range: 5-15 CO2 28.0 mmol/L (Normal) Range: 21.0-32.0 CL 100 mmol/L (Normal) Range: 98-107 K 4.5 mmol/L (Normal) Range: 3.5-5.1 NA 137 mmol/L (Normal) Range: 136-145 CA 8.9 mg/dL (Normal) Range: 8.5-10.1 BUN/CRE 22.1 {RATIO} (Abnormal) Range: 10-20 EST GFR - AA 61 mL/min (Normal) Comments: GFR Calc EST GFR 50 mL/min (Abnormal) Comments: Non- GFR Calc CREAT,SERUM 1.13 mg/dL (Normal) Range: 0.55-1.20 Comments: The validity of the calculated GFR AND GFRAA in patients over70 years has not been determined. Clinical correlation isessential. BUN 25 mg/dL (Abnormal) Range: 7-18 GLU 89 mg/dL (Normal) Range: 70-110 3-Kai-632103:50 Lipid Profile Comments: DR TUCKER IS ORDERING THE BMPOrder Date: 06/28/16 Order #: [id number] Osteopathic Hospital [address] [place], [place], [address] VLDL 14 mg/dL (Normal) Range: 5-40 LDL 56 mg/dL (Normal) Range: 0-130 HDL 60 mg/dL (Normal) Comments: The drugs N-Acetylcysteine and Metamizole may falsely deressthis assay. Reference Range HDL <40 mg/dL Low HDL Cholesterol HDL >or= 60 mg/dL High HDL Cholesterol TRIG 70 mg/dL (Normal) Comments: The drugs N-Acetylcysteine and Metamizole may falsely deressthis assay.Serum Triglycerides Reference Interval Normal <150 mg/dL Borderline high 150 - 199 mg/dL High 200 - 499 mg/dL Very High > or = 500 mg/dL CHOL 130 mg/dL (Normal) Comments: <200 mg/dL Desirable 200-240 mg/dL Borderline >240 mg/dL High Risk 9-Uvr-477648:50 Liver Profile Comments: DR TUCKER IS ORDERING THE BMPOrder Date: 06/28/16 Order #: [id number] Osteopathic Hospital [address] [place], [place], [address] D BILI 0.11 mg/dL (Normal) Range: 0.00-0.30 T BILI 0.50 mg/dL (Normal) Range: 0.20-1.00 ALT 30 U/L (Normal) Range: 12-78 ALK P 70 U/L (Normal) Range: 50-136 AST 27 U/L (Normal) Range: 15-37 GLOB 3.8 g/dL (Abnormal) Range: 2.3-3.5 ALB 3.8 g/dL (Normal) Range: 3.4-5.0 T PROT 7.6 g/dL (Normal) Range: 6.4-8.2 :50 T4 Total, Thyroxin Comments: DR TUCKER IS ORDERING THE BMPOrder Date: 06/28/16 Order #: [id number] [place] [address] [address] [place], [place], [address] T4 THYROXIN 12.8 ug/dL (Normal) Range: 4.8-13.9 :50 Thyroid Stim Hormone (TSH) Comments: DR TUCKER IS ORDERING THE BMPOrder Date: 06/28/16 Order #: [id number] [place] [address] [address] [place], [place], [address] TSH 2.26 {uIU/mL} (Normal) Range: 0.358-3.74 :26 URINE DAR CULTURE-IDENTIFICATN Comments: PATIENT NOT FASTINGPERFORMED BY: [facility] Pxdraj3525 [facility] [id number] Information: SRC:ANDREW ([id number]) Result 1 ECV (Abnormal) Comments: Escherichia coli, identified by an automated biochemical system.200 Colonies/mL .Mixed urogenital flora10,000-25,000 colony forming units per mL S = Susceptible; I = Intermediate; R = Resistant P = Positive; N = Negative MICS are expressed in micrograms per mL Antibiotic RSLT#1 RSLT#2 R SLT#3 RSLT#4Amoxicillin/Clavulanic Acid SAmpicillin SCefepime SCeftriaxone SCefuroxime SCephalothin ICiprofloxacin SErtapenem SGentamicin SImipenem SLevofloxacin SNitrofurantoin SPiper acillin STetracycline STobramycin STrimethoprim/Sulfa S Urine Final report Culture,Comprehensi (Abnormal) ve 66-Xvz-60015:38 Urinalysis, Office (42889) UA - LEUKOCYTE ESTERASE Negative (Normal) UA - NITRITE Negative (Normal) URINE UROBILINGN NOREEN TIMED Normal mg/dL (Normal) UA - PROTEIN Negative mg/dL (Normal) UA - PH 5 (Abnormal) UA - BLOOD Hemolyzed Trace (Normal) UA - SPECIFIC GRAVITY 1.010 (Normal) UA - KETONES Negative mg/dL (Normal) UA - BILIRUBIN Negative (Normal) UA - GLUCOSE Negative (Normal) 55-Znu-667925:02 Comprehensive Metabolic Profil Comments: CMP IS FOR [facility] [address] [place], [place], [address] GAP 8 (Normal) Range: 5-15 CO2 27.0 mmol/L (Normal) Range: 21.0-32.0 CL 102 mmol/L (Normal) Range: 98-107 K 4.1 mmol/L (Normal) Range: 3.5-5.1 NA 137 mmol/L (Normal) Range: 136-145 T BILI 0.50 mg/dL (Normal) Range: 0.20-1.00 ALT 30 U/L (Normal) Range: 12-78 ALK P 67 U/L (Normal) Range: 50-136 AST 30 U/L (Normal) Range: 15-37 CA 8.5 mg/dL (Normal) Range: 8.5-10.1 A/G 1.0 {RATIO} (Normal) Range: 0.9-2.4 GLOB 3.8 g/dL (Abnormal) Range: 2.3-3.5 ALB 3.7 g/dL (Normal) Range: 3.4-5.0 T PROT 7.5 g/dL (Normal) Range: 6.4-8.2 BUN/CRE 19.3 {RATIO} (Normal) Range: 10-20 EST GFR - AA 60 mL/min (Normal) Comments: GFR Calc EST GFR 50 mL/min (Abnormal) Comments: Non- GFR Calc CREAT,SERUM 1.14 mg/dL (Normal) Range: 0.55-1.20 Comments: The validity of the calculated GFR AND GFRAA in patients over70 years has not been determined. Clinical correlation isessential. BUN 22 mg/dL (Abnormal) Range: 7-18 GLU 85 mg/dL (Normal) Range: 70-110 50-Xoi-601757:02 T4 Total, Thyroxin Comments: C[facility] [address]phh[address] [place], [address] T4 THYROXIN 13.1 ug/dL (Normal) Range: 4.8-13.9 46-Gjs-233590:02 Thyroid Stim Hormone (TSH) Comments: CMP IS FOR [facility]ENTERGisellDay[facility] [address] [place], [address] TSH 1.34 {uIU/mL} (Normal) Range: 0.358-3.74 :25 COLON BIOPSY (CHOOSE See Note (Normal) Comments: [facility] [address] [place], [place], [id number] SITE) Comments: Patient: IRIS ARRIAGA : 1940 (76/F) Acct Num: [id number] Phys: Clifford Gifford Unit Num: [id number] Loc: EN Specimen: [id number] Received: 01/30/16 - 0850 Spec Type: COLON BX TISSUES TISSUES: GROSS DESCRIPTION Received is one container labeled with the patient name and designated mid ascending polyp. The specimen consists of two irregular fragments of light tansoft tissue that in aggregate measure 0.3 x 0.2 x 0.1 cm. The specimen is totally submitted in one cassette. / SJ:juan j 01/30/16 TC:5 CPT:86357 HEADER OPERATION: Colonoscopy PRE-OP DI AGNOSIS: Screening TISSUE SUBMITTED: Mid ascending polyp MICROSCOPIC DESCRIPTION Slides are reviewed. MICROSCOPIC DIAGNOSIS Mid ascending colon polyp, biopsy: Fragments of tubular adenoma. AM:juan j 01/31/16 Signed Abrahan Tam 01/31/16 <signature on file> 55-Huk-385746:12 Basic Metabolic Profile (BMP) Comments: ORDERED BMPDR.REINA ORDERED TSH T4 LIPID [facility] [address] [place], [address] GAP 6 (Normal) Range: 5-15 CO2 27.0 mmol/L (Normal) Range: 21.0-32.0 CL 106 mmol/L (Normal) Range: 98-107 K 4.0 mmol/L (Normal) Range: 3.5-5.1 NA 139 mmol/L (Normal) Range: 136-145 CA 8.8 mg/dL (Normal) Range: 8.5-10.1 BUN/CRE 16.2 {RATIO} (Normal) Range: 10-20 EST GFR - AA 71 mL/min (Normal) Comments: GFR Calc EST GFR 58 mL/min (Abnormal) Comments: Non- GFR Calc CREAT,SERUM 0.99 mg/dL (Normal) Range: 0.55-1.20 Comments: The validity of the calculated GFR AND GFRAA in patients over70 years has not been determined. Clinical correlation isessential. BUN 16 mg/dL (Normal) Range: 7-18 GLU 78 mg/dL (Normal) Range: 70-110 47-Oun-563029:12 Lipid Profile Comments: ORDERED BMPDR.REINA ORDERED TSH T4 LIPID [facility] [address]uf[address] [place], [place], [address] VLDL 15 mg/dL (Normal) Range: 5-40 LDL 57 mg/dL (Normal) Range: 0-130 HDL 71 mg/dL (Normal) Comments: Reference Range HDL <40 mg/dL Low HDL Cholesterol HDL >or= 60 mg/dL High HDL Cholesterol TRIG 73 mg/dL (Normal) Comments: Serum Triglycerides Reference Interval Normal <150 mg/dL Borderline high 150 - 199 mg/dL High 200 - 499 mg/dL Very High > or = 500 mg/dL CHOL 143 mg/dL (Normal) Comments: <200 mg/dL Desirable 200-240 mg/dL Borderline >240 mg/dL High Risk 19-Jzp-207349:12 Liver Profile Comments: ORDERED BMPDR.MOODISPAW ORDERED TSH T4 [facility] [address] [place], [place], [address] D BILI 0.17 mg/dL (Normal) Range: 0.00-0.30 T BILI 0.50 mg/dL (Normal) Range: 0.20-1.00 ALT 37 U/L (Normal) Range: 12-78 ALK P 68 U/L (Normal) Range: 50-136 AST 26 U/L (Normal) Range: 15-37 GLOB 3.8 g/dL (Abnormal) Range: 2.3-3.5 ALB 3.5 g/dL (Normal) Range: 3.4-5.0 T PROT 7.3 g/dL (Normal) Range: 6.4-8.2 53-Ejb-005930:12 T4 Total, Thyroxin Comments: ORDERED BMPDR.DELIOISPAW ORDERED TSH T4 [facility] [address] [place], [place], [address] T4 THYROXIN 14.3 ug/dL (Abnormal) Range: 4.8-13.9 00-Ygk-637672:12 Thyroid Stim Hormone (TSH) Comments: ORDERED BMPDR.DELIOISPAW ORDERED TSH T4 [facility] [address]qi[address] [place], [place], [address] TSH 2.32 {uIU/mL} (Normal) Range: 0.358-3.74 22-Rqt-16598:37 Rapid Flu (20764 x 2) Influenza A Ag neg (Normal) 16-Mht-795486:28 Metabolic Panel, Basic Comments: PATIENT NOT FASTINGPERFORMED BY: [facility] VinelandYwghfg5538 [facility] [id number] ([id number]) Calcium, Serum 8.7 mg/dL (Normal) Range: 8.7-10.3 Carbon Dioxide, Total 18 mmol/L (Normal) Range: 18-29 Chloride, Serum 98 mmol/L (Normal) Range: 97-108 Potassium, Serum 4.7 mmol/L (Normal) Range: 3.5-5.2 Sodium, Serum 138 mmol/L (Normal) Range: 134-144 BUN/Creatinine Ratio 16 (Normal) Range: 11-26 eGFR If Africn Am 53 mL/min/1.73 (Abnormal) eGFR If NonAfricn Am 46 mL/min/1.73 (Abnormal) Creatinine, Serum 1.18 mg/dL (Abnormal) Range: 0.57-1.00 BUN 19 mg/dL (Normal) Range: 8-27 Glucose, Serum 70 mg/dL (Normal) Range: 65-99 45-Jat-831308:28 CBC (Auto) (39033) Comments: PATIENT NOT FASTINGPERFORMED BY: [address] [id number] Information: [id number] Platelets 224 {x10E3/uL} (Normal) Range: 150-379 RDW 14.8 % (Normal) Range: 12.3-15.4 MCHC 33.0 g/dL (Normal) Range: 31.5-35.7 MCH 31.9 pg (Normal) Range: 26.6-33.0 MCV 97 fL (Normal) Range: 79-97 Hematocrit 39.4 % (Normal) Range: 34.0-46.6 Hemoglobin 13.0 g/dL (Normal) Range: 11.1-15.9 RBC 4.08 {x10E6/uL} (Normal) Range: 3.77-5.28 WBC 8.1 {x10E3/uL} (Normal) Range: 3.4-10.8 55-Oes-766580:51 URINE DAR CULTURE-IDENTIFICATN Comments: PATIENT NOT FASTINGPERFORMED BY: [facility] [id number] Information: [id number] ([id number]) Result 1 MUG (Normal) Comments: Mixed urogenital flora2,000 Colonies/mL Urine Culture,Comprehensive Final report (Normal) :28 Magnesium Comments: [facility] [address] [place], [address] MG 2.1 mg/dL (Normal) Range: 1.8-2.4 74-Hxp-12750:28 Potassium Comments: [facility] [id number] [place], [address] K 5.0 mmol/L (Normal) Range: 3.5-5.1 29-Zab-[id number]:12 LIPASE ([id number]) Comments: Test(s) Potassium, Serum called to [facility] on 11/21/2015 at 03:54 ESTPATIENT NOT FASTINGPERFORMED BY: [facility] [id number] Lipase, Serum 61 U/L (Abnormal) Range: 0-59 [id number]-Xal-961481:12 AMYLASE ([id number]) Comments: Test(s) Potassium, Serum called to [facility] on 11/21/2015 at 03:54 ESTPATIENT NOT FASTINGPERFORMED BY: [facility] [id number] Amylase, Serum 84 U/L (Normal) Range: 31-124 32-Hda-055543:20 Urinalysis, Office ([id number]) UA - LEUKOCYTE ESTERASE Trace (Normal) UA - NITRITE Negative (Normal) URINE UROBILINGN NOREEN TIMED Normal mg/dL (Normal) UA - PROTEIN 100 mg/dL (Normal) UA - PH 6.0 (Normal) Comments: 5.5 UA - BLOOD Negative (Normal) UA - SPECIFIC GRAVITY 1.030 (Abnormal) UA - KETONES 15 mg/dL (Abnormal) UA - BILIRUBIN Moderate (Normal) UA - GLUCOSE Negative (Normal) 37-Eit-[id number]:12 Metabolic Panel, Basic Comments: Test(s) Potassium, Serum called to [facility] on 11/21/2015 at 03:54 ESTPATIENT NOT FASTINGPERFORMED BY: [employer] [facility] [id number] ([id number]) Calcium, Serum 8.9 mg/dL (Normal) Range: 8.7-10.3 Carbon Dioxide, Total 20 mmol/L (Normal) Range: 18-29 Chloride, Serum 98 mmol/L (Normal) Range: 97-108 Potassium, Serum 6.2 mmol/L (Abnormal) Range: 3.5-5.2 Comments: Client Requested Flag Sodium, Serum 136 mmol/L (Normal) Range: 134-144 BUN/Creatinine Ratio 20 (Normal) Range: 11-26 eGFR If Africn Am 56 mL/min/1.73 (Abnormal) eGFR If NonAfricn Am 48 mL/min/1.73 (Abnormal) Creatinine, Serum 1.13 mg/dL (Abnormal) Range: 0.57-1.00 BUN 23 mg/dL (Normal) Range: 8-27 Glucose, Serum 85 mg/dL (Normal) Range: 65-99 Comments: Specimen received hemolyzed. Clinical correlation indicated. 66-Ety-[id number]:12 CBC WITH MANUAL DIFF Comments: Test(s) Potassium, Serum called to Gina Vergara on 11/21/2015 at 03:54 ESTPATIENT NOT FASTINGPERFORMED BY: MISHA [facility] Zarrch8185 [facility] [id number] Information: [id number] ([id number]) Immature Grans (Abs) 0.0 {x10E3/uL} (Normal) Range: 0.0-0.1 Immature Granulocytes 0 % (Normal) Baso (Absolute) 0.0 {x10E3/uL} (Normal) Range: 0.0-0.2 Eos (Absolute) 0.3 {x10E3/uL} (Normal) Range: 0.0-0.4 Monocytes(Absolute) 1.1 {x10E3/uL} (Abnormal) Range: 0.1-0.9 Lymphs (Absolute) 1.3 {x10E3/uL} (Normal) Range: 0.7-3.1 Neutrophils (Absolute) 13.3 {x10E3/uL} (Abnormal) Range: 1.4-7.0 Basos 0 % (Normal) Eos 2 % (Normal) Monocytes 7 % (Normal) Lymphs 8 % (Normal) Neutrophils 83 % (Normal) Platelets 248 {x10E3/uL} (Normal) Range: 150-379 RDW 14.0 % (Normal) Range: 12.3-15.4 MCHC 32.9 g/dL (Normal) Range: 31.5-35.7 MCH 32.0 pg (Normal) Range: 26.6-33.0 MCV 97 fL (Normal) Range: 79-97 Hematocrit 43.5 % (Normal) Range: 34.0-46.6 Hemoglobin 14.3 g/dL (Normal) Range: 11.1-15.9 RBC 4.47 {x10E6/uL} (Normal) Range: 3.77-5.28 WBC 16.1 {x10E3/uL} (Abnormal) Range: 3.4-10.8 2-Kzx-624465:50 Urinalysis, Complete Comments: Order Date: 11/15/15How was Urine Obtained? [facility] [address] [place], [place], [id number] HYALINE CAST 5-10 SEEN {/lpf} (Normal) Range: 0-5 MUCUS, URINE 0 SEEN {/hpf} (Normal) BACTERIA 0 SEEN {/hpf} (Normal) SQUAM EPI 0-5 SEEN {/hpf} (Normal) Range: 5-10 RBC-UA 0 SEEN {/hpf} (Normal) Range: 0-5 WBC 0-5 SEEN {/hpf} (Normal) Range: 0-5 LEUK ESTERASE 100 /ul (Abnormal) OCCULT BLOOD-UR 10 /ul (Abnormal) NITRITE UR Negative (Normal) UROBILI Normal mg/dL (Normal) PROT DIPSTX 30 mg/dL (Abnormal) pH UR 5.0 (Normal) Range: 5.0 - 8.0 SP.GR. DIPSTX 1.025 (Normal) Range: 1.002-1.030 KETONE UR Negative mg/dL (Normal) BILIRUBIN URINE Negative mg/dL (Normal) GLUCOSE, UR Normal mg/dL (Normal) CLARITY Clear (Normal) COLOR Yellow (Normal) [id number]-Inl-[id number]:00 Basic Metabolic Profile (BMP) Comments: [facility] [address] [place], [place], [id number] GAP 6 (Normal) Range: 5-15 CO2 24.0 mmol/L (Normal) Range: 21.0-32.0 CL 104 mmol/L (Normal) Range: 98-107 K 5.3 mmol/L (Abnormal) Range: 3.5-5.1 Comments: Moderate Hemolysis, Result may be falsely increased. NA 134 mmol/L (Abnormal) Range: 136-145 CA 8.5 mg/dL (Normal) Range: 8.5-10.1 BUN/CRE 25.3 {RATIO} (Abnormal) Range: 10-20 Estimated CRCL 33.45 ml/min (Normal) EST GFR - AA 40 mL/min (Abnormal) Comments: GFR Calc EST GFR 33 mL/min (Abnormal) Comments: Non- GFR Calc CREAT,SERUM 1.62 mg/dL (Abnormal) Range: 0.55-1.20 Comments: The validity of the calculated GFR AND GFRAA in patients over70 years has not been determined. Clinical correlation isessential. BUN 41 mg/dL (Abnormal) Range: 7-18 GLU 88 mg/dL (Normal) Range: 70-110 9-Ayo-780622:00 CBC W/Diff, Automated Comments: [facility] [address] [place], [address] SMEAR COMMENT SCANNED (Normal) Absolute Lymph 1.15 {X10_3/ul} (Normal) Range: 0.83-4.51 Absolute Neut 13.9 {X10_3/uL} (Abnormal) Range: 2.0-7.7 IM GRAN % 0.900 % (Normal) Range: 0.0-0.9 Comments: IG% - Immature Granulocytes (promyelocytes, myelocytes andmetamyelocytes) > 1% indicates that a LEFT SHIFT is Present. BASO% 0.2 % (Normal) Range: 0-1 EO% 0.9 % (Normal) Range: 0-5 MONO% 9.0 % (Normal) Range: 0-10 LY% 6.8 % (Abnormal) Range: 19-41 NEUT% 82.2 % (Abnormal) Range: 47-70 MPV 10.4 fL (Normal) Range: 6.2-12.0 PLT 257 K/mm3 (Normal) Range: 150-450 RDW SD 52.0 fL (Abnormal) Range: 35.1-43.9 RDW CV 15.0 % (Abnormal) Range: 11.6-14.6 MCHC 33.2 {g/gl} (Normal) Range: 32-36 MCH 32.2 pg (Abnormal) Range: 27.0-32.0 MCV 97.1 fL (Normal) Range: 81-99 HCT 47.3 % (Abnormal) Range: 37-47 HGB 15.7 g/dL (Abnormal) Range: 12.0-15.0 RBC 4.87 {M/mm3} (Normal) Range: 4.2-5.4 WBC 16.9 K/mm3 (Abnormal) Range: 4.4-11.0 5-Cdg-654341:00 Lipase Comments: [facility] [address], [address] LIPASE 446 U/L (Abnormal) Range: 73-393 6-Iul-491062:00 Liver Profile Comments: [facility] [address] [place], [address] D BILI 0.06 mg/dL (Normal) Range: 0.00-0.30 T BILI 0.40 mg/dL (Normal) Range: 0.20-1.00 ALT 94 U/L (Abnormal) Range: 12-78 ALK P 66 U/L (Normal) Range: 50-136 AST 76 U/L (Abnormal) Range: 15-37 Comments: Moderate Hemolysis, Result may be falsely increased. GLOB 4.0 g/dL (Abnormal) Range: 2.3-3.5 ALB 3.3 g/dL (Abnormal) Range: 3.4-5.0 T PROT 7.3 g/dL (Normal) Range: 6.4-8.2 9-Cjy-717564:00 Thyroid Stim Hormone (TSH) Comments: [facility] [address], [address] TSH 1.12 {uIU/mL} (Normal) Range: 0.358-3.74 0-Mwl-005388:18 Thyroid Stim Hormone (TSH) Comments: [facility] [address] [place], [address] TSH 0.59 {uIU/mL} (Normal) Range: 0.358-3.74 87-Qdg-179072:18 Pathology Report Comments: PERFORMED BY: KWCYT [facility] [place] Cyto Qwvoi66309 [facility] [id number] BY: INDYL [facility] [place] [id number] BY: LX [facility] Gdxqhmi70274 [facility] [id number] Information: [id number] See MATER Comments: Material submitted: .SADA CHESTClinician provided ICD-10:D49.2Clinical history: .CHANGE LESION RED ITCH Note (Normal) Diagnosis:SHAVE CHEST:HYPERTROPHIC, INFLAMED ACTINIC KERATOSIS..EIS/09/01/2015 El ectronically signed: .Camila Bright MD, PathologistGross description: .SUBMITTED IN FORMALIN LABELED IRIS STRINGERCH AND YADI CROWLEY IS A FRAGMENT OF FERGUSON/YELLOW TISSUE THAT MEASURES0.6 X 0.5 X 0.4 CM. THE MARGINS ARE INKED YELLOW. THESPECIMEN IS BISECTED AND SUBMITTED IN TOTO.XJW/TMZPathologist provided ICD-10:L57.0CPT .197224 33-Zno-229853:40 Basic Metabolic Profile (BMP) Comments: 'TROP' Serial specimen #1, #2, #3, or #4: [address] [place] [address] Xcrdm[address]78 [facility], [place], [address] GAP 7 (Normal) Range: 5-15 CO2 27.0 mmol/L (Normal) Range: 21.0-32.0 CL 106 mmol/L (Normal) Range: 98-107 K 4.1 mmol/L (Normal) Range: 3.5-5.1 Comments: Moderate Hemolysis, Result may be falsely increased. NA 140 mmol/L (Normal) Range: 136-145 CA 8.7 mg/dL (Normal) Range: 8.5-10.1 BUN/CRE 19.3 {RATIO} (Normal) Range: 10-20 Estimated CRCL 57.64 ml/min (Normal) EST GFR - AA 75 mL/min (Normal) Comments: GFR Calc EST GFR 62 mL/min (Normal) Comments: Non- GFR Calc CREAT,SERUM 0.94 mg/dL (Normal) Range: 0.55-1.20 Comments: The validity of the calculated GFR AND GFRAA in patients over70 years has not been determined. Clinical correlation isessential. BUN 18 mg/dL (Normal) Range: 7-18 GLU 76 mg/dL (Normal) Range: 70-110 12-Vkn-579122:40 BNP,B-Type NATRIURETIC PEPTIDE Comments: [facility] [address] [place], [place], [id number] B-TYPE HUMBLE PEP 406.4 pg/mL (Abnormal) Range: 0-100 54-Pxd-441096:40 CBC W/Diff, Automated Comments: [facility] [address] [place], [place], [id number] Absolute Lymph 1.25 {X10_3/ul} (Normal) Range: 0.83-4.51 Absolute Neut 6.9 {X10_3/uL} (Normal) Range: 2.0-7.7 IM GRAN % 0.500 % (Normal) Range: 0.0-0.9 Comments: IG% - Immature Granulocytes (promyelocytes, myelocytes andmetamyelocytes) > 1% indicates that a LEFT SHIFT is Present. BASO% 0.2 % (Normal) Range: 0-1 EO% 1.0 % (Normal) Range: 0-5 MONO% 10.5 % (Abnormal) Range: 0-10 LY% 13.5 % (Abnormal) Range: 19-41 NEUT% 74.3 % (Abnormal) Range: 47-70 MPV 10.0 fL (Normal) Range: 6.2-12.0 PLT 203 K/mm3 (Normal) Range: 150-450 RDW SD 54.8 fL (Abnormal) Range: 35.1-43.9 RDW CV 15.8 % (Abnormal) Range: 11.6-14.6 MCHC 32.7 {g/gl} (Normal) Range: 32-36 MCH 32.2 pg (Abnormal) Range: 27.0-32.0 MCV 98.5 fL (Normal) Range: 81-99 HCT 39.1 % (Normal) Range: 37-47 HGB 12.8 g/dL (Normal) Range: 12.0-15.0 RBC 3.97 {M/mm3} (Abnormal) Range: 4.2-5.4 WBC 9.2 K/mm3 (Normal) Range: 4.4-11.0 61-Smj-420805:40 Troponin-I Comments: 'TROP' Serial specimen #1, #2, #3, or #4: [address] [place] [address] [address] [place], [address] TROPONIN-I 0.03 ng/mL (Normal) Comments: TROPONIN-I EXPECTED VALUES <0.05 NEGATIVE 0.06 - 0.59 AT RISK OF AL > OR = 0.60 SUGGEST AL 64-Dzb-186935:25 Urinalysis, Complete Comments: Order Date: 08/09/15How was Urine Obtained? CLEAN [facility] [address] [place], [address] MUCUS, URINE 0 SEEN {/hpf} (Normal) BACTERIA RARE {/hpf} (Normal) SQUAM EPI 0 SEEN {/hpf} (Normal) Range: 5-10 RBC-UA 0 SEEN {/hpf} (Normal) Range: 0-5 WBC 0 SEEN {/hpf} (Normal) Range: 0-5 LEUK ESTERASE Negative /ul (Normal) OCCULT BLOOD-UR Negative /ul (Normal) NITRITE UR Negative (Normal) UROBILI Normal mg/dL (Normal) PROT DIPSTX Negative mg/dL (Normal) pH UR 6.0 (Normal) Range: 5.0 - 8.0 SP.GR. DIPSTX 1.010 (Normal) Range: 1.002-1.030 KETONE UR Negative mg/dL (Normal) BILIRUBIN URINE Negative mg/dL (Normal) GLUCOSE, UR Normal mg/dL (Normal) CLARITY Clear (Normal) COLOR Straw (Normal) 12-Lzt-877573:26 Basic Metabolic Profile (BMP) Comments: 'TROP' Serial specimen #1, #2, #3, or #4: [address] [place] [address] [address] [place], [address] GAP 4 (Abnormal) Range: 5-15 CO2 29.0 mmol/L (Normal) Range: 21.0-32.0 CL 99 mmol/L (Normal) Range: 98-107 K 5.3 mmol/L (Abnormal) Range: 3.5-5.1 Comments: Moderate Hemolysis, Result may be falsely increased. NA 132 mmol/L (Abnormal) Range: 136-145 CA 8.4 mg/dL (Abnormal) Range: 8.5-10.1 BUN/CRE 27.3 {RATIO} (Abnormal) Range: 10-20 Estimated CRCL 30.06 ml/min (Normal) EST GFR - AA 44 mL/min (Abnormal) Comments: GFR Calc EST GFR 36 mL/min (Abnormal) Comments: Non- GFR Calc CREAT,SERUM 1.50 mg/dL (Abnormal) Range: 0.55-1.20 Comments: The validity of the calculated GFR AND GFRAA in patients over70 years has not been determined. Clinical correlation isessential. BUN 41 mg/dL (Abnormal) Range: 7-18 GLU 66 mg/dL (Abnormal) Range: 70-110 87-Pji-364489:26 CBC W/Diff, Automated Comments: [facility] [address] [place], [place], [id number] SMEAR COMMENT SCANNED (Normal) Absolute Lymph 2.04 {X10_3/ul} (Normal) Range: 0.83-4.51 Absolute Neut 14.4 {X10_3/uL} (Abnormal) Range: 2.0-7.7 IM GRAN % 1.100 % (Abnormal) Range: 0.0-0.9 Comments: IG% - Immature Granulocytes (promyelocytes, myelocytes andmetamyelocytes) > 1% indicates that a LEFT SHIFT is Present. BASO% 0.2 % (Normal) Range: 0-1 EO% 0.5 % (Normal) Range: 0-5 MONO% 9.8 % (Normal) Range: 0-10 LY% 11.0 % (Abnormal) Range: 19-41 NEUT% 77.4 % (Abnormal) Range: 47-70 MPV 9.8 fL (Normal) Range: 6.2-12.0 PLT 224 K/mm3 (Normal) Range: 150-450 RDW SD 52.6 fL (Abnormal) Range: 35.1-43.9 RDW CV 15.3 % (Abnormal) Range: 11.6-14.6 MCHC 33.4 {g/gl} (Normal) Range: 32-36 MCH 32.1 pg (Abnormal) Range: 27.0-32.0 MCV 96.2 fL (Normal) Range: 81-99 HCT 42.5 % (Normal) Range: 37-47 HGB 14.2 g/dL (Normal) Range: 12.0-15.0 RBC 4.42 {M/mm3} (Normal) Range: 4.2-5.4 WBC 18.6 K/mm3 (Abnormal) Range: 4.4-11.0 77-Czx-969219:26 Prothrombin Time w/INR Comments: [facility] [address] [place], [address] INR 1.1 (Normal) PROTIME 14.0 s (Normal) Range: 11.7-14.9 65-Eub-733415:26 Troponin-I Comments: 'TROP' Serial specimen #1, #2, #3, or #4: 1[facility] [address] [place], [address] TROPONIN-I < 0.02 ng/mL (Normal) Comments: TROPONIN-I EXPECTED VALUES <0.05 NEGATIVE 0.06 - 0.59 AT RISK OF AL > OR = 0.60 SUGGEST AL 37-Gll-066255:02 Bilirubin, Direct Comments: ORDERED LIPID,LIVERDR.BONEZZCaitlin ORDERED CBCD,TSH,LIPID,CMP,UAThe [facility] [address] [place], [place], [id number] D BILI 0.15 mg/dL (Normal) Range: 0.00-0.30 39-Suk-755740:02 CBC W/Diff, Automated Comments: [facility] [address] [place], [address] Absolute Lymph 0.99 {X10_3/ul} (Normal) Range: 0.83-4.51 Absolute Neut 4.8 {X10_3/uL} (Normal) Range: 2.0-7.7 IM GRAN % 0.300 % (Normal) Range: 0.0-0.9 Comments: IG% - Immature Granulocytes (promyelocytes, myelocytes andmetamyelocytes) > 1% indicates that a LEFT SHIFT is Present. BASO% 0.5 % (Normal) Range: 0-1 EO% 12.0 % (Abnormal) Range: 0-5 MONO% 9.1 % (Normal) Range: 0-10 LY% 13.3 % (Abnormal) Range: 19-41 NEUT% 64.8 % (Normal) Range: 47-70 MPV 10.3 fL (Normal) Range: 6.2-12.0 PLT 227 K/mm3 (Normal) Range: 150-450 RDW SD 53.5 fL (Abnormal) Range: 35.1-43.9 RDW CV 15.0 % (Abnormal) Range: 11.6-14.6 MCHC 32.1 {g/gl} (Normal) Range: 32-36 MCH 31.8 pg (Normal) Range: 27.0-32.0 MCV 99.0 fL (Normal) Range: 81-99 HCT 40.8 % (Normal) Range: 37-47 HGB 13.1 g/dL (Normal) Range: 12.0-15.0 RBC 4.12 {M/mm3} (Abnormal) Range: 4.2-5.4 WBC 7.5 K/mm3 (Normal) Range: 4.4-11.0 36-Icy-797867:02 Comprehensive Metabolic Comments: ORDERED LIPID,LIVERDR.BONEZZI ORDERED CBCD,TSH,LIPID,CMP,[facility] [address] [place], [address] Profil GAP 8 (Normal) Range: 5-15 CO2 26.0 mmol/L (Normal) Range: 21.0-32.0 CL 104 mmol/L (Normal) Range: 98-107 K 4.1 mmol/L (Normal) Range: 3.5-5.1 NA 138 mmol/L (Normal) Range: 136-145 T BILI 0.40 mg/dL (Normal) Range: 0.20-1.00 ALT 46 U/L (Normal) Range: 12-78 ALK P 101 U/L (Normal) Range: 50-136 AST 36 U/L (Normal) Range: 15-37 CA 8.8 mg/dL (Normal) Range: 8.5-10.1 A/G 1.0 {RATIO} (Normal) Range: 0.9-2.4 GLOB 3.8 g/dL (Abnormal) Range: 2.3-3.5 ALB 3.9 g/dL (Normal) Range: 3.4-5.0 T PROT 7.7 g/dL (Normal) Range: 6.4-8.2 BUN/CRE 18.3 {RATIO} (Normal) Range: 10-20 EST GFR - AA 67 mL/min (Normal) Comments: GFR Calc EST GFR 55 mL/min (Abnormal) Comments: Non- GFR Calc CREAT,SERUM 1.04 mg/dL (Normal) Range: 0.55-1.20 Comments: The validity of the calculated GFR AND GFRAA in patients over70 years has not been determined. Clinical correlation isessential. BUN 19 mg/dL (Abnormal) Range: 7-18 GLU 80 mg/dL (Normal) Range: 70-110 24-Hxu-334447:02 Lipid Profile Comments: ORDERED LIPID,LIVERDRCLOVER ORDERED CBCD,TSH,LIPID,CMP,[facility] [address]mwqnlg8[address] [facility] [place], [place], [id number] VLDL 18 mg/dL (Normal) Range: 5-40 LDL 48 mg/dL (Normal) Range: 0-130 HDL 59 mg/dL (Normal) Comments: Reference Range HDL <40 mg/dL Low HDL Cholesterol HDL >or= 60 mg/dL High HDL Cholesterol TRIG 92 mg/dL (Normal) Comments: Serum Triglycerides Reference Interval Normal <150 mg/dL Borderline high 150 - 199 mg/dL High 200 - 499 mg/dL Very High > or = 500 mg/dL CHOL 125 mg/dL (Normal) Comments: <200 mg/dL Desirable 200-240 mg/dL Borderline >240 mg/dL High Risk 59-Iyg-286900:02 Thyroid Stim Hormone Comments: ORDERED LIPID,LIVERDRCOLINZZCaitlin ORDERED CBCD,TSH,LIPID,CMP,[facility] [address] [place], [place], [address] (TSH) TSH 1.37 {uIU/mL} (Normal) Range: 0.358-3.74 58-Rhl-183378:02 Urinalysis, Complete Comments: How was Urine Obtained? CLEAN [facility] [address] [place], [address] MUCUS, URINE 0 SEEN {/hpf} (Normal) BACTERIA 0 SEEN {/hpf} (Normal) SQUAM EPI 0-5 SEEN {/hpf} (Normal) Range: 5-10 RBC-UA 0 SEEN {/hpf} (Normal) Range: 0-5 WBC 0 SEEN {/hpf} (Normal) Range: 0-5 LEUK ESTERASE Negative /ul (Normal) OCCULT BLOOD-UR Negative /ul (Normal) NITRITE UR Negative (Normal) UROBILI Normal mg/dL (Normal) PROT DIPSTX Negative mg/dL (Normal) pH UR 6.0 (Normal) Range: 5.0 - 8.0 SP.GR. DIPSTX 1.010 (Normal) Range: 1.002-1.030 KETONE UR Negative mg/dL (Normal) BILIRUBIN URINE Negative mg/dL (Normal) GLUCOSE, UR Normal mg/dL (Normal) CLARITY Clear (Normal) COLOR Straw (Normal) 70-Mso-942375:40 Basic Metabolic Profile (BMP) Comments: REDRAW. PREVIOUS SPECIMEN REJECTED DUE TOHEMOLYSIS. 06/06/15 15[address].[facility] [address] [place], [address] GAP 6 (Normal) Range: 5-15 CO2 28.0 mmol/L (Normal) Range: 21.0-32.0 CL 104 mmol/L (Normal) Range: 98-107 K 4.1 mmol/L (Normal) Range: 3.5-5.1 Comments: Slight Hemolysis, Result may be falsely increased. NA 138 mmol/L (Normal) Range: 136-145 CA 8.9 mg/dL (Normal) Range: 8.5-10.1 BUN/CRE 16.0 {RATIO} (Normal) Range: 10-20 Estimated CRCL 47.06 ml/min (Normal) EST GFR - AA 57 mL/min (Abnormal) Comments: GFR Calc EST GFR 47 mL/min (Abnormal) Comments: Non- GFR Calc CREAT,SERUM 1.19 mg/dL (Normal) Range: 0.55-1.20 Comments: The validity of the calculated GFR AND GFRAA in patients over70 years has not been determined. Clinical correlation isessential. BUN 19 mg/dL (Abnormal) Range: 7-18 GLU 113 mg/dL (Abnormal) Range: 70-110 Comments: Fasting Glucose result from 110 to <126 mg/dLsuggests IMPAIRED HOMEOSTASIS per A.D.A. criteria. 96-Wim-939236:10 CBC W/Diff, Automated Comments: [facility] [address] [place], [place], [id number] Absolute Lymph 1.33 {X10_3/ul} (Normal) Range: 0.83-4.51 Absolute Neut 6.5 {X10_3/uL} (Normal) Range: 2.0-7.7 IM GRAN % 0.900 % (Normal) Range: 0.0-0.9 Comments: IG% - Immature Granulocytes (promyelocytes, myelocytes andmetamyelocytes) > 1% indicates that a LEFT SHIFT is Present. BASO% 0.5 % (Normal) Range: 0-1 EO% 5.3 % (Abnormal) Range: 0-5 MONO% 8.4 % (Normal) Range: 0-10 LY% 14.3 % (Abnormal) Range: 19-41 NEUT% 70.6 % (Abnormal) Range: 47-70 MPV 10.7 fL (Normal) Range: 6.2-12.0 PLT 248 K/mm3 (Normal) Range: 150-450 RDW SD 56.3 fL (Abnormal) Range: 35.1-43.9 RDW CV 16.8 % (Abnormal) Range: 11.6-14.6 MCHC 32.9 {g/gl} (Normal) Range: 32-36 MCH 32.6 pg (Abnormal) Range: 27.0-32.0 MCV 99.0 fL (Normal) Range: 81-99 HCT 39.8 % (Normal) Range: 37-47 HGB 13.1 g/dL (Normal) Range: 12.0-15.0 RBC 4.02 {M/mm3} (Abnormal) Range: 4.2-5.4 WBC 9.3 K/mm3 (Normal) Range: 4.4-11.0 88-Nhi-931197:16 Renal function Panel Comments: PATIENT NOT FASTINGPERFORMED BY: MISHA [facility] [address]fftf[address] [place] [id number] Information: [id number] ([id number]) Albumin, Serum 3.6 g/dL (Normal) Range: 3.5-4.8 Phosphorus, Serum 3.1 mg/dL (Normal) Range: 2.5-4.5 Calcium, Serum 8.7 mg/dL (Normal) Range: 8.7-10.3 Carbon Dioxide, Total 24 mmol/L (Normal) Range: 18-29 Chloride, Serum 99 mmol/L (Normal) Range: 97-108 Potassium, Serum 4.7 mmol/L (Normal) Range: 3.5-5.2 Sodium, Serum 137 mmol/L (Normal) Range: 134-144 BUN/Creatinine Ratio 17 (Normal) Range: 11-26 eGFR If Africn Am 69 mL/min/1.73 (Normal) eGFR If NonAfricn Am 60 mL/min/1.73 (Normal) Creatinine, Serum 0.95 mg/dL (Normal) Range: 0.57-1.00 BUN 16 mg/dL (Normal) Range: 8-27 Glucose, Serum 59 mg/dL (Abnormal) Range: 65-99 Comments: Client Requested Flag [id number]-[id number] CK-MB Quantitative and Index Comments: Serial Specimen #1, #2 or #3? 2Comments: Should be drawn 2H after initial Troponin obtained'TROP' Serial specimen #1, #2, #3, or #4: 2Test performed at:[facility] [address] [place], [place] [address] CPKMB 1.1 ng/mL (Normal) Range: 0.0-5.0 Comments: CK-MB and RI Interpretation MB Relative Index Non-AMI <or= 5 NA Indeterminate > 5 <or= 4 AMI > 5 > 4 CPK TOTAL 48 U/L (Normal) Range: 26-192 78-Twu-870208:57 Troponin-I Comments: Serial Specimen #1, #2 or #3? 2Comments: Should be drawn 2H after initial Troponin obtained'TROP' Serial specimen #1, #2, #3, or #4: 2Test performed at:[facility] [address] [place] [address] TROPONIN-I < 0.02 ng/mL (Normal) Comments: TROPONIN-I EXPECTED VALUES <0.05 NEGATIVE 0.06 - 0.59 AT RISK OF AL > OR = 0.60 SUGGEST AL 34-Woh-598599:33 Comprehensive Metabolic Profil Comments: Test performed at:[facility] [address] [place] [address] GAP 6 (Normal) Range: 5-15 CO2 27.0 mmol/L (Normal) Range: 21.0-32.0 CL 97 mmol/L (Abnormal) Range: 98-107 K 5.3 mmol/L (Abnormal) Range: 3.5-5.1 NA 130 mmol/L (Abnormal) Range: 136-145 T BILI 0.40 mg/dL (Normal) Range: 0.20-1.00 ALT 99 U/L (Abnormal) Range: 12-78 ALK P 69 U/L (Normal) Range: 50-136 AST 69 U/L (Abnormal) Range: 15-37 CA 8.7 mg/dL (Normal) Range: 8.5-10.1 A/G 1.1 {RATIO} (Normal) Range: 0.9-2.4 GLOB 3.4 g/dL (Normal) Range: 2.3-3.5 ALB 3.9 g/dL (Normal) Range: 3.4-5.0 T PROT 7.3 g/dL (Normal) Range: 6.4-8.2 BUN/CRE 27.6 {RATIO} (Abnormal) Range: 10-20 CREAT,SERUM 1.27 mg/dL (Abnormal) Range: 0.55-1.20 Comments: Please note revised CREATININE reference range /22/2015. BUN 35 mg/dL (Abnormal) Range: 7-18 GLU 53 mg/dL (Abnormal) Range: 70-110 [id number] CRP Comments: Test performed at:[facility] [address] [place] [address] C-REACTIVE PROT < 2.90 mg/L (Normal) Range: 0.0-3.0 Comments: C-Reactive Protein (CRP) provides useful information for thediagnosis, therapy and monitoring of inflammatory processesand associated diseases. For the evaluation of Relative Riskfor Cardiovascular Dise ase, a High Sensitivity CRP (HSCRP)should be ordered. :33 Erythrocyte Sed Rate Comments: Test performed at:[facility] [address] [place], [place] [address] SED RATE 7 mm/h (Normal) Range: 0-30 [id number] URINE DAR CULTURE-NOREEN COL Comments: PATIENT NOT FASTINGPERFORMED BY: CB [facility] [id number] [facility] [id number] Information: SRC:[facility] [place] [id number] COUNT ([id number]) Result 1 NG36 (Normal) Comments: No growth in 36 - 48 hours. Urine Culture,Comprehensive Final report (Normal) [id number] Urinalysis, Office (85562) UA - LEUKOCYTE ESTERASE Trace (Normal) UA - NITRITE Negative (Normal) URINE UROBILINGN NOREEN TIMED 2 mg/dL (Normal) UA - PROTEIN Negative mg/dL (Normal) UA - PH 5.0 (Normal) UA - BLOOD Negative (Normal) UA - SPECIFIC GRAVITY 1.015 (Normal) UA - KETONES Small mg/dL (Normal) UA - BILIRUBIN Negative (Normal) UA - GLUCOSE Negative (Normal) 08-Feb-20159:39 Pathology Report Comments: PERFORMED BY: KWCYT [facility] [place] Cyto [id number] [facility] [id number] BY: [facility] Dermatopathology [id number] [id number] Information: [id number] See MATER Comments: Material submitted: .SHAVE BIOPSY FACEClinician provided ICD-9:239.2 ; Neoplasms of unspecified nature of bone, soft tissue, and skinClinical history: Note (Normal) .Diagnosis:SKIN FRAGMENT WITH CAVITARY CHANGE RIMMED BY GRANULOMATOUSINFLAMMATION WITH PATCHY ABSCESS F ORMATION (PAS AND FITESTAINS NEGATIVE), SEE COMMENT BELOW..COMMENT:THE HISTOPATHOLOGIC CHANGES NOTED ARE NOT DIAGNOSTIC. THISPATTERN MAY BE SEEN WITH A RUPTURED AND SECONDARILY INFECTEDCYST. DESPITE N EGATIVE SPECIAL STAINS, DIRECT TISSUECULTURE WOULD BE REQUIRED TO MORE RELIABLY CONFIRM OR REFUTEAN INFECTIOUS GRANULOMATOUS DERMATITIS. THERE IS NO EVIDENCEOF MALIGNANCY IN THESE SECTIONS. CLINICOPAT HOLOGIC CORRELATIONIS RECOMMENDED.02/13/2015Electronically signed: .Gege Reece MD, [place] topathologistGross description: .RECEIVED IS A CONTAINER LABELED IRIS ARRIAGA AND DESIGNATEDUPPER LESION ON CHEEK. IN FORMALIN IS A FERGUSON TISSUE MEASURING 4 X4 X 1 MM. IT IS INKED PURPLE, BISECTED, AND BOTH HALVES ARESUBMITTED IN A SINGLE CASSETTE.COR/BXSPathologist provided ICD-9:686.9, 682.0CPT .037886, [id number], [id number] T4 Total, Thyroxin Comments: PER PT ONLY TSH AND T4 TODAYTest performed at:[facility] [address] [place] [address] [id number] T4 THYROXIN 13.2 ug/dL (Normal) Range: 4.8-13.9 02-Umf-891560:29 Thyroid Stim Hormone (TSH) Comments: PER PT ONLY TSH AND T4 TODAYTest performed at:[facility] [address] [place] [address] 44691 TSH 3.74 {uIU/mL} (Normal) Range: 0.358-3.74 45-Qag-206019:17 URINE DAR CULTURE-NOREEN COL Comments: PATIENT NOT FASTINGPERFORMED BY: [facility] [id number] [facility] [id number] Information: SRC: URINE COUNT (70453) Result 1 NG36 (Normal) Comments: No growth in 36 - 48 hours. Urine Culture,Comprehensive Final report (Normal) 20-Qve-120389:48 Urinalysis, Office (86239) UA - LEUKOCYTE ESTERASE Negative (Normal) UA - NITRITE Negative (Normal) URINE UROBILINGN NOREEN TIMED Normal mg/dL (Normal) UA - PROTEIN Negative mg/dL (Normal) UA - PH 6.0 (Normal) Comments: 5.5 UA - BLOOD Negative (Normal) UA - SPECIFIC GRAVITY 1.010 (Normal) UA - KETONES Negative mg/dL (Normal) UA - BILIRUBIN Negative (Normal) UA - GLUCOSE Negative (Normal) 35-Eyd-379878:31 Basic Metabolic Profile (BMP) Comments: Test performed at:[facility] [address] [place], [place] [id number] GAP 5 (Normal) Range: 5-15 CO2 27.0 mmol/L (Normal) Range: 21.0-32.0 CL 103 mmol/L (Normal) Range: 98-107 K 4.8 mmol/L (Normal) Range: 3.5-5.1 NA 135 mmol/L (Abnormal) Range: 136-145 CA 8.7 mg/dL (Normal) Range: 8.5-10.1 BUN/CRE 16.4 {RATIO} (Normal) Range: 10-20 CREAT,SERUM 1.1 mg/dL (Abnormal) Range: 0.6-1.0 BUN 18 mg/dL (Normal) Range: 7-18 GLU 89 mg/dL (Normal) Range: 70-110 02-Hvz-963378:31 Lipid Profile Comments: Test performed at:[facility] [address] [place], [place] [id number] VLDL 22 mg/dL (Normal) Range: 5-40 LDL 55 mg/dL (Normal) Range: 0-130 HDL 46 mg/dL (Normal) Comments: Reference Range HDL <40 mg/dL Low HDL Cholesterol HDL >or= 60 mg/dL High HDL Cholesterol TRIG 108 mg/dL (Normal) Range: 0-199 Comments: Serum Triglycerides Reference Interval Normal <150 mg/dL Borderline high 150 - 199 mg/dL High 200 - 499 mg/dL Very High > or = 500 mg/dL CHOL 123 mg/dL (Normal) Comments: <200 mg/dL Desirable 200-240 mg/dL Borderline >240 mg/dL High Risk 49-Nrh-549247:31 Liver Profile Comments: Test performed at:[facility] [address] [place] [address] D BILI 0.10 mg/dL (Normal) Range: 0.00-0.30 T BILI 0.30 mg/dL (Normal) Range: 0.00-4.00 ALT 35 U/L (Normal) Range: 12-78 ALK P 85 U/L (Normal) Range: 50-136 AST 38 U/L (Abnormal) Range: 15-37 GLOB 3.6 g/dL (Normal) Range: 2.7-4.2 ALB 3.7 g/dL (Normal) Range: 3.4-5.0 T PROT 7.3 g/dL (Normal) Range: 6.4-8.2 09-Pfe-322306:31 T4 Total, Thyroxin Comments: Test performed at:[facility] [address] [place] [address] T4 THYROXIN 14.9 ug/dL (Abnormal) Range: 4.8-13.9 19-Ejb-384680:31 Thyroid Stim Hormone (TSH) Comments: Test performed at:[facility] [address] [place] [address] TSH 2.32 {uIU/mL} (Normal) Range: 0.358-3.74 22-Yyv-090232:30 CBC W/Diff, Automated Comments: Test performed at:[facility] [address] [place] [address] Absolute Lymph 1.12 {X10_3/ul} (Normal) Range: 0.83-4.51 Absolute Neut 6.1 {X10_3/uL} (Normal) Range: 2.0-7.7 IM GRAN % 0.600 % (Normal) Range: 0.0-0.9 Comments: IG% - Immature Granulocytes (promyelocytes, myelocytes andmetamyelocytes) > 1% indicates that a LEFT SHIFT is Present. BASO% 0.5 % (Normal) Range: 0-1 EO% 6.6 % (Abnormal) Range: 0-5 MONO% 10.9 % (Abnormal) Range: 0-10 LY% 12.7 % (Abnormal) Range: 19-41 NEUT% 68.7 % (Normal) Range: 47-70 MPV 9.4 fL (Normal) Range: 6.2-12.0 PLT 267 K/mm3 (Normal) Range: 150-450 RDW SD 62.7 fL (Abnormal) Range: 35.1-43.9 RDW CV 18.5 % (Abnormal) Range: 11.6-14.6 MCHC 31.4 {g/gl} (Abnormal) Range: 32-36 MCH 29.3 pg (Normal) Range: 27.0-32.0 MCV 93.5 fL (Normal) Range: 81-99 HCT 35.7 % (Abnormal) Range: 37-47 HGB 11.2 g/dL (Abnormal) Range: 12.0-15.0 RBC 3.82 {M/mm3} (Abnormal) Range: 4.2-5.4 WBC 8.8 K/mm3 (Normal) Range: 4.4-11.0 86-Uxk-114417:30 Urinalysis, Complete Comments: DR HUANG LIVER LIPID TSH T4 ONLYHow was Urine Obtained? CLEAN CATCHTest performed at:[facility] [address] [place], [place] [id number] HYALINE CAST 0-5 SEEN {/lpf} (Normal) Range: 0-5 MUCUS, URINE 0 SEEN {/hpf} (Normal) BACTERIA 0 SEEN {/hpf} (Normal) SQUAM EPI 0-5 SEEN {/hpf} (Normal) Range: 5-10 RBC-UA 0-5 SEEN {/hpf} (Normal) Range: 0-5 WBC 0-5 SEEN {/hpf} (Normal) Range: 0-5 LEUK ESTERASE 25 /ul (Abnormal) OCCULT BLOOD-UR 25 /ul (Abnormal) NITRITE UR Negative (Normal) UROBILI Normal mg/dL (Normal) PROT DIPSTX 15 mg/dL (Abnormal) pH UR 6.0 (Normal) Range: 5.0 - 8.0 SP.GR. DIPSTX 1.015 (Normal) Range: 1.002-1.030 KETONE UR Negative mg/dL (Normal) BILIRUBIN URINE Negative mg/dL (Normal) GLUCOSE, UR Normal mg/dL (Normal) CLARITY Sl. Cloudy (Normal) COLOR Yellow (Normal) 69-Fdh-312896:09 CBC W/Diff, Automated Comments: Test performed at:[facility] [address] [place], [place] [id number] Absolute Lymph 0.85 {X10_3/ul} (Normal) Range: 0.83-4.51 Absolute Neut 6.8 {X10_3/uL} (Normal) Range: 2.0-7.7 IM GRAN % 0.200 % (Normal) Range: 0.0-0.9 Comments: IG% - Immature Granulocytes (promyelocytes, myelocytes andmetamyelocytes) > 1% indicates that a LEFT SHIFT is Present. BASO% 0.2 % (Normal) Range: 0-1 EO% 4.6 % (Normal) Range: 0-5 MONO% 7.9 % (Normal) Range: 0-10 LY% 9.7 % (Abnormal) Range: 19-41 NEUT% 77.4 % (Abnormal) Range: 47-70 MPV 9.8 fL (Normal) Range: 6.2-12.0 PLT 209 K/mm3 (Normal) Range: 150-450 RDW SD 59.4 fL (Abnormal) Range: 35.1-43.9 RDW CV 18.3 % (Abnormal) Range: 11.6-14.6 MCHC 31.3 {g/gl} (Abnormal) Range: 32-36 MCH 28.9 pg (Normal) Range: 27.0-32.0 MCV 92.6 fL (Normal) Range: 81-99 HCT 35.2 % (Abnormal) Range: 37-47 HGB 11.0 g/dL (Abnormal) Range: 12.0-15.0 RBC 3.80 {M/mm3} (Abnormal) Range: 4.2-5.4 WBC 8.7 K/mm3 (Normal) Range: 4.4-11.0 50-Qsm-709133:09 Comprehensive Metabolic Profil Comments: 'TROP' Serial specimen #1, #2, #3, or #4: 1Test performed at:[facility] [address] [place], [place] [id number] GAP 5 (Normal) Range: 5-15 CO2 27.0 mmol/L (Normal) Range: 21.0-32.0 CL 102 mmol/L (Normal) Range: 98-107 K 4.4 mmol/L (Normal) Range: 3.5-5.1 NA 134 mmol/L (Abnormal) Range: 136-145 T BILI 0.40 mg/dL (Normal) Range: 0.00-4.00 ALT 28 U/L (Normal) Range: 12-78 ALK P 92 U/L (Normal) Range: 50-136 AST 27 U/L (Normal) Range: 15-37 CA 8.8 mg/dL (Normal) Range: 8.5-10.1 A/G 0.9 {RATIO} (Normal) Range: 0.9-2.4 GLOB 4.1 g/dL (Normal) Range: 2.7-4.2 ALB 3.7 g/dL (Normal) Range: 3.4-5.0 T PROT 7.8 g/dL (Normal) Range: 6.4-8.2 BUN/CRE 17.1 {RATIO} (Normal) Range: 10-20 Estimated CRCL 37.96 ml/min (Normal) CREAT,SERUM 1.4 mg/dL (Abnormal) Range: 0.6-1.0 BUN 24 mg/dL (Abnormal) Range: 7-18 GLU 113 mg/dL (Abnormal) Range: 70-110 Comments: Fasting Glucose result from 110 to <126 mg/dLsuggests IMPAIRED HOMEOSTASIS per A.D.A. criteria. 70-Wnk-356021:09 Troponin-I Comments: 'TROP' Serial specimen #1, #2, #3, or #4: 1Test performed at:[facility] [address] [place] [address] TROPONIN-I < 0.02 ng/mL (Normal) Comments: TROPONIN-I EXPECTED VALUES <0.05 NEGATIVE 0.06 - 0.59 AT RISK OF AL > OR = 0.60 SUGGEST AL 35-Bsr-519211:21 Rapid Flu (58181 x 2) Influenza A Ag neg (Normal) :05 TSH 6.19 {uIU/mL} (Abnormal) Range: 0.358-3.74 :54 CBCMD ANC 10.3 3/uL (Abnormal) Range: 2.0-7.7 IG% 0.50 % (Abnormal) Range: 0.0-0.0 B% 0.1 % (Normal) Range: 0-1 E% 0.0 % (Normal) Range: 0-5 M% 8.4 % (Normal) Range: 0-10 L% 11.0 % (Abnormal) Range: 19-41 N% 80.0 % (Abnormal) Range: 47-70 MPV 10.0 fL (Normal) Range: 6.2-12.0 PLT 269 K/mm3 (Normal) Range: 150-450 RDWSD 50.8 fL (Abnormal) Range: 35.1-43.9 RDWCV 15.0 % (Abnormal) Range: 11.6-14.6 MCHC 32.8 g/dL (Normal) Range: 32-36 MCH 31.2 pg (Normal) Range: 27.0-32.0 MCV 95.1 fL (Normal) Range: 81-99 HCT 37.2 % (Normal) Range: 37-47 HGB 12.2 g/dL (Normal) Range: 12.0-15.0 RBC 3.91 {M/mm3} (Abnormal) Range: 4.2-5.4 WBC 12.9 {k/mm3} (Abnormal) Range: 4.4-11.0 :54 CMP GAP 7 (Normal) Range: 5-15 CO2 27.0 mmol/L (Normal) Range: 21.0-32.0 CL 103 mmol/L (Normal) Range: 98-107 K 4.5 mmol/L (Normal) Range: 3.5-5.1 NA 137 mmol/L (Normal) Range: 136-145 BIT 0.30 mg/dL (Normal) Range: 0.00-1.00 ALT 26 U/L (Normal) Range: 12-78 ALK 86 U/L (Normal) Range: 50-136 AST 19 U/L (Normal) Range: 15-37 CA 9.0 mg/dL (Normal) Range: 8.5-10.1 AG 0.9 {RATIO} (Normal) Range: 0.9-2.4 GLOB 3.9 g/dL (Normal) Range: 2.7-4.2 ALB 3.6 g/dL (Normal) Range: 3.4-5.0 TPROT 7.5 g/dL (Normal) Range: 6.4-8.2 BC 28.3 {RATIO} (Abnormal) Range: 10-20 GFRAA 57 mL/min (Abnormal) GFR 47 mL/min (Abnormal) BUN 34 mg/dL (Abnormal) Range: 7-18 CREAT 1.2 mg/dL (Abnormal) Range: 0.6-1.0 GLU 100 mg/dL (Normal) Range: 70-110 :54 LIPID VLDL 10 mg/dL (Normal) Range: 5-40 HDL 63 mg/dL (Normal) Comments: Reference RangeHDL <40 mg/dL Low HDL CholesterolHDL >or= 60 mg/dL High HDL Cholesterol LDL 78 mg/dL (Normal) Range: 0-130 TRIG 50 mg/dL (Normal) Comments: Serum Triglycerides Reference IntervalNormal <150 mg/dLBorderline high 150 - 199 mg/dLHigh 200 - 499 mg/ dLVery High > or = 500 mg/dL CHOL 151 mg/dL (Normal) Comments: <200 mg/dL Qlvrewfwk104-274 mg/dL Borderline>240 mg/dL High Risk 89-Wgp-08699:54 TSH 0.72 {uIU/mL} (Normal) Range: 0.358-3.74 29-Mmk-702778:37 Rapid Strep Test, Office (87557) Comments: neg Rapid Strep Test, Office Negative (Normal) 29-Dxp-829489:03 DAR CULTURE-OTHER (93364) Comments: PATIENT NOT FASTINGPERFORMED BY: [facility] [id number] [facility] [id number] Information: SRC:THRT [id number] Result 1 RRF (Normal) Comments: Routine respiratory julia Upper Respiratory Culture Final report (Normal) 40-Xaz-325603:12 Urinalysis, Office (97235) UA - BILIRUBIN Negative (Normal) UA - BLOOD Hemolyzed Trace (Normal) UA - GLUCOSE Negative (Normal) UA - KETONES Negative mg/dL (Normal) UA - LEUKOCYTE ESTERASE Trace (Normal) UA - NITRITE Negative (Normal) UA - PH 6.0 (Normal) UA - PROTEIN Negative mg/dL (Normal) UA - SPECIFIC GRAVITY 1.010 (Normal) URINE UROBILINGN NOREEN TIMED 2 mg/dL (Normal) 11-Guy-720729:53 DEXA BONE DENSITY STUDY (HP) Radiology Report See Note (Normal) Comments: PROCEDURE: DUAL ENERGY X-RAY ABSORPTIOMETRY / DXA REASON FOR EXAM: Female, 72 years old. The patient is postmenopausal. TECHNIQUE: Bone Mineral Density (BMD) measurements of lumbar spine andright hip were obtained. The patient is status post total left hipreplacement. COMPARISON: None. FINDINGS: Lumbar Spine (L1-L4): g/cm2 (1.225) / T-score (0.5) / Z-score (2.2) RIGHT Femur Total: g/cm2 (1.116) / T-score (0.9) / Z-score (2.3)RIGHT Femoral Neck: g/cm2 (1.235) / T-score (1.4) / Z-score (3.1) IMPRESSION:The patient is considered normal, as outlined below according to WorldHealth Organization (WHO) criteria. Fracture risk is low. Reference Information:The T-score is the number of standard deviations above or below thestandard which is normal for young adults at their peak bone mineraldensity. The World Health Organization (WHO) interprets the T-scores asfollows: Above -1 Normal bone densityBetween -1 and -2.5 OsteopeniaEqual to / or below -2.5 Osteoporosis As a practical clinical guideline, osteopenia may be graded as follows:Mild -1 through -1.5Moderate -1.6 through -2.0Severe -2.1 through -2.4 The Z-score is the number of standard deviations above or bel ow age-matchedcontrols. A Z-score of less than -1.5 would be considered abnormal. References:1. NIH Osteoporosis and Related Bone Diseases http://www.osteo.org2. International Society for Clinical Den sitometry http://www.iscd.org3. National Osteoporosis Foundation http://www.nof.org Signed:Ed Fink M.D.July 29, 2012 at 2:05:06 PM [id number] Signed GP/GP If you are the referring physician and would like to consult with theradiologist who provided this interpretation, please contact Aleida Osei at [phone]. If this radiologist is unavailable, youwil l be directed to another radiologist to assist. If you are a patient with a question regarding this report, pleasecontactyour referring physician directly. Professional Interpretation Provided By: So collins, Phone , These documents contain legally protected and confidential healthinformation intended only for the use of the individual or entity namedabove. If you are no t the intended recipient, you are hereby notifiedthatany disclosure, copying, distribution, or other use of these documents isstrictly prohibited. If you have received this information in error,pleaseno tify the sender immediately and arrange for the return or destructionofthese documents. Dictated on 07/29/12 1102 by Aleks TIRADO,Ronenranscribed on 07/29/12 1409 by ITS IMPORTSign by Ed Covarrubias on 07/29/12 1410 Sign by: Ed Fink MD 50-Eeh-019957:37 BILAT SCRN DIGITAL & CAD Radiology Report See Note (Normal) Comments: MAMMOGRAPHY - BILATERAL SCREENING REASON FOR EXAM: Female, 72 years old. Routine annual screeningexamination. PERTINENT HISTORY: Non-contributory. TECHNIQUE: Digital examination. Med iolateral ob lique (MLO) andcraniocaudad (CC) views of both breasts were obtained. CAD: CAD wasperformed on this study. COMPARISON: Comparison is made with prior outside examination datedFebruary 2008. FINDING S:The breast composition is heterogeneously dense. There are no dominant masses or suspicious calcifications. No other significant abnormalities are identified. There has been nosignificant change sinc e the prior study. IMPRESSION:Stable bilateral screening mammogram. Yearly follow-up recommended. (A) ASSESSMENT CATEGORY:BIRADS Category 2: Benign finding(s). A letter regarding these resultswill be sent to the patient by the facility within 30 days. Approximately 10% of breast cancers are not detected by mammography. Anormal mammogram should not delay biopsy of a clinically suspiciousabnormali ty. Signed:Ed Fink M.D.July 14, 2012 at 1:35:04 PM [id number] Signed GP/GP If you are the referring physician and would like to consult with theradiologist who provided this interpretation, please contact Aleida Osei at [phone]. If this radiologist is unavailable, youwill be directed to another radiologist to assist. If you are a patient with a questi on regarding this report, pleasecontactyour referring physician directly. Professional Interpretation Provided By: [email or web address], Phone , These documents contain legally prot ected and confidential healthinformation intended only for the use of the individual or entity namedabove. If you are not the intended recipient, you are hereby notifiedthatany disclosure, copying, dist ribution, or other use of these documents isstrictly prohibited. If you have received this information in error,pleasenotify the sender immediately and arrange for the return or destructionofthese docum ents. Dictated on 07/09/12 1339 by Ronen Fink MDranscribed on 07/14/12 1342 by ITS IMPORTSign by Ed Fink MD on 07/14/12 1343 Sign by: Ed Fink MD 22-Apr-2012 BID 0.10 mg/dL Comments: Order Date: 02/06/12OV Order #: [id number] ID: [id number] Comments: DX = 272.4 JLS 02/07/12Diagnosis: V58.69 - LONG- TERM USE OF HIGH RISK MEDICATIONSDiagnosis: V45.02 - IMPLANTATION OF DEF IBRILLATOR, 11:57 (Normal) HX OFDiagnosis: V43.3 - HEART VALVE REPLACED BY OTHER MEANSDiagnosis: 904.8 - INJURY UNSPECIFIED BLOOD VESSEL LOWER EXTREMITYDiagnosis: 794.31 - ABNORMAL ELECTROCARDIOGRAMDiagnosis: 786.09 - DYSPNEADiagnosis: 785.1 - PALPITATIONSDiagnosis: 428.0 - CONGESTIVE HEART FAILUREDiagnosis: 427.9 - CARDIAC DYSRHYTHMIA, UNSPEC.Diagnosis: 427.31 - ATRIAL FIBRILLATIONDiagnosis: 427.1 - VENTRICULAR TACH YCARDIADiagnosis: 425.8 - CARDIOMYOPATHY OTHER DISEASES CLASSIFIED ELSWDiagnosis: 425.4 - CARDIOMYOPATHY, DILATEDDiagnosis: 424.0 - MITRAL VALVE PROLAPSEDiagnosis: 272.4 - HYPERLIPIDEMIAInter face Comments: Fasting 12 hours, may have water.OV Order #: [id number] Order #: [id number] Comments: Reason:Interface Comments: DX = 427.31 [facility] 02/07/12OV Order #: [id number] Comments: DX = 428.0 [facility] 02/07/12 Range: 0.00-0.30 23-Moq-606092:57 CMP Comments: Order Date: 02/06/12OV Order #: [id number] ID: [id number] Comments: DX = 272.4 S 02/07/12Diagnosis: V58.69 - LONG-TERM USE OF HIGH RISK MEDICATIONSDiagnosis: V45.02 - IMPLANTATION OF DEFIBRILLATOR, HX OFDiagnosis: V43.3 - HEART VALVE REPLACED BY OTHER MEANSDiagnosis: 904.8 - INJURY UNSPECIFIED BLOOD VESSEL LOWER EXTREMITYDiagnosis: 794.31 - ABNORMAL ELECTROCARDIOGRAMDiagnosis: 786.09 - DYSPNEADiagnosis: 785.1 - PALPITATIONSDiagnosis: 428.0 - CONGESTIVE HEART FAILUREDiagnosis: 427.9 - CARDIAC DYSRHYTHMIA, UNSPEC.Diagnosis: 427.31 - ATRIAL FIBRILLATIONDiagnosis: 427.1 - VENTRICULAR TACH YCARDIADiagnosis: 425.8 - CARDIOMYOPATHY OTHER DISEASES CLASSIFIED ELSWDiagnosis: 425.4 - CARDIOMYOPATHY, DILATEDDiagnosis: 424.0 - MITRAL VALVE PROLAPSEDiagnosis: 272.4 - HYPERLIPIDEMIAInter face Comments: Fasting 12 hours, may have water.OV Order #: [id number] Order #: [id number] Comments: Reason:Interface Comments: DX = 427.31 [facility] 02/07/12OV Order #: [id number] Comments: DX = 428.0 [facility] 02/07/12 GAP 6 (Normal) Range: 5-15 CL 98 mmol/L (Normal) Range: 98-107 CO2 30.0 mmol/L (Normal) Range: 21.0-32.0 K 4.5 mmol/L (Normal) Range: 3.5-5.1 NA 134 mmol/L (Abnormal) Range: 136-145 BIT 0.40 mg/dL (Normal) Range: 0.00-1.00 ALT 30 U/L (Normal) Range: 12-78 ALK 80 U/L (Normal) Range: 50-136 AST 24 U/L (Normal) Range: 15-37 CA 9.3 mg/dL (Normal) Range: 8.5-10.1 AG 1.0 {RATIO} (Normal) Range: 0.9-2.4 GLOB 3.9 g/dL (Normal) Range: 2.7-4.2 ALB 4.0 g/dL (Normal) Range: 3.4-5.0 TPROT 7.9 g/dL (Normal) Range: 6.4-8.2 BC 22.1 {RATIO} (Abnormal) Range: 10-20 GFRAA 48 mL/min (Abnormal) GFR 40 mL/min (Abnormal) CREAT 1.4 mg/dL (Abnormal) Range: 0.6-1.0 BUN 31 mg/dL (Abnormal) Range: 7-18 GLU 92 mg/dL (Normal) Range: 70-110 10-Xec-210403:57 LIPID Comments: Order Date: 02/06/12OV Order #: [id number] ID: [id number] Comments: DX = 272.4 JLS 02/07/12Diagnosis: V58.69 - LONG-TERM USE OF HIGH RISK MEDICATIONSDiagnosis: V45.02 - IMPLANTATION OF DEFIBRILLATOR, HX OFDiagnosis: V43.3 - HEART VALVE REPLACED BY OTHER MEANSDiagnosis: 904.8 - INJURY UNSPECIFIED BLOOD VESSEL LOWER EXTREMITYDiagnosis: 794.31 - ABNORMAL ELECTROCARDIOGRAMDiagnosis: 786.09 - DYSPNEADiagnosis: 785.1 - PALPITATIONSDiagnosis: 428.0 - CONGESTIVE HEART FAILUREDiagnosis: 427.9 - CARDIAC DYSRHYTHMIA, UNSPEC.Diagnosis: 427.31 - ATRIAL FIBRILLATIONDiagnosis: 427.1 - VENTRICULAR TACH YCARDIADiagnosis: 425.8 - CARDIOMYOPATHY OTHER DISEASES CLASSIFIED ELSWDiagnosis: 425.4 - CARDIOMYOPATHY, DILATEDDiagnosis: 424.0 - MITRAL VALVE PROLAPSEDiagnosis: 272.4 - HYPERLIPIDEMIAInter face Comments: Fasting 12 hours, may have water.OV Order #: [id number] Order #: [id number] Comments: Reason:Interface Comments: DX = 427.31 [facility] 02/07/12OV Order #: [id number] Comments: DX = 428.0 [facility] 02/07/12 VLDL 13 mg/dL (Normal) Range: 5-40 LDL 87 mg/dL (Normal) Range: 0-130 HDL 65 mg/dL (Normal) Comments: Reference Range HDL <40 mg/dL Low HDL Cholesterol HDL >or= 60 mg/dL High HDL Cholesterol TRIG 66 mg/dL (Normal) Comments: Serum Triglycerides Reference Interval Normal <150 mg/dL Borderline high 150 - 199 mg/dL High 200 - 499 mg/dL Very High > or = 500 mg/dL CHOL 165 mg/dL (Normal) Comments: <200 mg/dL Desirable 200-240 mg/dL Borderline >240 mg/dL High Risk 06-Qwy-091960:57 PHOS 4.0 mg/dL (Normal) Comments: Order Date: 02/06/12OV Order #: [id number] ID: [id number] Comments: DX = 272.4 S 02/07/12Diagnosis: V58.69 - LONG-TERM USE OF HIGH RISK MEDICATIONSDiagnosis: V45.02 - IMPLANTATION OF DEFIBRILLATOR, HX OFDiagnosis: V43.3 - HEART VALVE REPLACED BY OTHER MEANSDiagnosis: 904.8 - INJURY UNSPECIFIED BLOOD VESSEL LOWER EXTREMITYDiagnosis: 794.31 - ABNORMAL ELECTROCARDIOGRAMDiagnosis: 786.09 - DYSPNEADiagnosis: 785.1 - PALPITATIONSDiagnosis: 428.0 - CONGESTIVE HEART FAILUREDiagnosis: 427.9 - CARDIAC DYSRHYTHMIA, UNSPEC.Diagnosis: 427.31 - ATRIAL FIBRILLATIONDiagnosis: 427.1 - VENTRICULAR TACH YCARDIADiagnosis: 425.8 - CARDIOMYOPATHY OTHER DISEASES CLASSIFIED ELSWDiagnosis: 425.4 - CARDIOMYOPATHY, DILATEDDiagnosis: 424.0 - MITRAL VALVE PROLAPSEDiagnosis: 272.4 - HYPERLIPIDEMIAInter face Comments: Fasting 12 hours, may have water.OV Order #: [id number] Order #: [id number] Comments: Reason:Interface Comments: DX = 427.31 [facility] 02/07/12OV Order #: [id number] Comments: DX = 428.0 [facility] 02/07/12 Range: 2.5-4.9 :57 T4 12.6 ug/dL (Normal) Comments: Order Date: 02/06/12OV Order #: [id number] ID: [id number] Comments: DX = 272.4 [facility] 02/07/12Diagnosis: V58.69 - LONG-TERM USE OF HIGH RISK MEDICATIONSDiagnosis: V45.02 - IMPLANTATION OF DEFIBRILLATOR, HX OFDiagnosis: V43.3 - HEART VALVE REPLACED BY OTHER MEANSDiagnosis: 904.8 - INJURY UNSPECIFIED BLOOD VESSEL LOWER EXTREMITYDiagnosis: 794.31 - ABNORMAL ELECTROCARDIOGRAMDiagnosis: 786.09 - DYSPNEADiagnosis: 785.1 - PALPITATIONSDiagnosis: 428.0 - CONGESTIVE HEART FAILUREDiagnosis: 427.9 - CARDIAC DYSRHYTHMIA, UNSPEC.Diagnosis: 427.31 - ATRIAL FIBRILLATIONDiagnosis: 427.1 - VENTRICULAR TACH YCARDIADiagnosis: 425.8 - CARDIOMYOPATHY OTHER DISEASES CLASSIFIED ELSWDiagnosis: 425.4 - CARDIOMYOPATHY, DILATEDDiagnosis: 424.0 - MITRAL VALVE PROLAPSEDiagnosis: 272.4 - HYPERLIPIDEMIAInter face Comments: Fasting 12 hours, may have water.OV Order #: [id number] Order #: [id number] Comments: Reason:Interface Comments: DX = 427.31 [facility] 02/07/12OV Order #: [id number] Comments: DX = 428.0 [facility] 02/07/12 Range: 4.8-13.9 :57 T4F 1.76 ng/dL (Abnormal) Comments: Order Date: 02/06/12OV Order #: [id number] ID: [id number] Comments: DX = 272.4 [facility] 02/07/12Diagnosis: V58.69 - LONG-TERM USE OF HIGH RISK MEDICATIONSDiagnosis: V45.02 - IMPLANTATION OF DEFIBRILLATOR, HX OFDiagnosis: V43.3 - HEART VALVE REPLACED BY OTHER MEANSDiagnosis: 904.8 - INJURY UNSPECIFIED BLOOD VESSEL LOWER EXTREMITYDiagnosis: 794.31 - ABNORMAL ELECTROCARDIOGRAMDiagnosis: 786.09 - DYSPNEADiagnosis: 785.1 - PALPITATIONSDiagnosis: 428.0 - CONGESTIVE HEART FAILUREDiagnosis: 427.9 - CARDIAC DYSRHYTHMIA, UNSPEC.Diagnosis: 427.31 - ATRIAL FIBRILLATIONDiagnosis: 427.1 - VENTRICULAR TACH YCARDIADiagnosis: 425.8 - CARDIOMYOPATHY OTHER DISEASES CLASSIFIED ELSWDiagnosis: 425.4 - CARDIOMYOPATHY, DILATEDDiagnosis: 424.0 - MITRAL VALVE PROLAPSEDiagnosis: 272.4 - HYPERLIPIDEMIAInter face Comments: Fasting 12 hours, may have water.OV Order #: [id number] Order #: [id number] Comments: Reason:Interface Comments: DX = 427.31 [facility] 02/07/12OV Order #: [id number] Comments: DX = 428.0 [facility] 02/07/12 Range: 0.76-1.46 :57 TSH 2.47 {uIU/mL} (Normal) Comments: Order Date: 02/06/12OV Order #: [id number] ID: [id number] Comments: DX = 272.4 [facility] 02/07/12Diagnosis: V58.69 - LONG-TERM USE OF HIGH RISK MEDICATIONSDiagnosis: V45.02 - IMPLANTATION OF DEFIBRILLATOR, HX OFDiagnosis: V43.3 - HEART VALVE REPLACED BY OTHER MEANSDiagnosis: 904.8 - INJURY UNSPECIFIED BLOOD VESSEL LOWER EXTREMITYDiagnosis: 794.31 - ABNORMAL ELECTROCARDIOGRAMDiagnosis: 786.09 - DYSPNEADiagnosis: 785.1 - PALPITATIONSDiagnosis: 428.0 - CONGESTIVE HEART FAILUREDiagnosis: 427.9 - CARDIAC DYSRHYTHMIA, UNSPEC.Diagnosis: 427.31 - ATRIAL FIBRILLATIONDiagnosis: 427.1 - VENTRICULAR TACH YCARDIADiagnosis: 425.8 - CARDIOMYOPATHY OTHER DISEASES CLASSIFIED ELSWDiagnosis: 425.4 - CARDIOMYOPATHY, DILATEDDiagnosis: 424.0 - MITRAL VALVE PROLAPSEDiagnosis: 272.4 - HYPERLIPIDEMIAInter face Comments: Fasting 12 hours, may have water.OV Order #: [id number] Order #: [id number] Comments: Reason:Interface Comments: DX = 427.31 [facility] 02/07/12OV Order #: [id number] Comments: DX = 428.0 [facility] 02/07/12 Range: 0.358-3.74 :47 CBCD Comments: DR. VERGARA ORDERED CMP, RENAL, TSH, T4, CBCDRTammi DIETRICH ORDERED HEPATIC FUNCTION, LIPID, TSH, T4 ANC 4.5 3/uL (Normal) Range: 2.0-7.7 B% 0.6 % (Normal) Range: 0-1 E% 9.7 % (Abnormal) Range: 0-5 M% 8.9 % (Normal) Range: 0-10 L% 14.6 % (Abnormal) Range: 19-41 N% 66.2 % (Normal) Range: 47-70 MPV 8.9 fL (Normal) Range: 6.5-12.0 PLT 203 K/mm3 (Normal) Range: 150-450 RDW 16.3 % (Abnormal) Range: 11.6-14.6 MCHC 33.4 g/dL (Normal) Range: 32-36 MCH 31.4 pg (Normal) Range: 27.0-32.0 MCV 94.1 fL (Normal) Range: 81-99 HCT 37.2 % (Normal) Range: 37-47 HGB 12.4 g.dL (Normal) Range: 12.0-15.0 RBC 3.96 {M/mm3} (Abnormal) Range: 4.2-5.4 WBC 6.7 K/mm3 (Normal) Range: 4.4-11.0 :21 CBCD ANC 5.1 3/uL (Normal) Range: 2.0-7.7 B% 0.4 % (Normal) Range: 0-1 E% 9.6 % (Abnormal) Range: 0-5 M% 8.4 % (Normal) Range: 0-10 L% 16.2 % (Abnormal) Range: 19-41 N% 65.4 % (Normal) Range: 47-70 MPV 8.6 fL (Normal) Range: 6.5-12.0 PLT 202 K/mm3 (Normal) Range: 150-450 RDW 14.8 % (Abnormal) Range: 11.6-14.6 MCHC 34.2 g/dL (Normal) Range: 32-36 MCH 32.3 pg (Abnormal) Range: 27.0-32.0 MCV 94.4 fL (Normal) Range: 81-99 HCT 34.7 % (Abnormal) Range: 37-47 HGB 11.9 g/dL (Abnormal) Range: 12.0-16.0 RBC 3.67 {M/mm3} (Abnormal) Range: 4.2-5.4 WBC 7.8 K/mm3 (Normal) Range: 4.4-11.0 [id number]-Bzi-[id number]:21 LIPID Comments: ORDERED TSH LIPID T4DR.CLARY ORDERED RENAL TSH CBCDInterface Comments: Interface Comments: Fasting 12 hours, may have water.Order Date: 01/15/12Diagnosis: V58.69 - LONG-TERM USE OF HIG H RISK MEDICATIONSDiagnosis: V45.02 - IMPLANTATION OF DEFIBRILLATOR, HX OFDiagnosis: V43.3 - HEART VALVE REPLACED BY OTHER MEANSDiagnosis: 904.8 - INJURY UNSPECIFIED BLOOD VESSEL LOWER EXTRDi agnosis: 794.31 - ABNORMAL ELECTROCARDIOGRAMDiagnosis: 786.09 - DYSPNEADiagnosis: 785.1 - PALPITATIONSDiagnosis: 428.0 - CONGESTIVE HEART FAILUREDiagnosis: 427.9 - CARDIAC DYSRHYTHMIA, UNSPEC.Diagnosis: 427.31 - ATRIAL FIBRILLATIONDiagnosis: 427.1 - VENTRICULAR TACHYCARDIADiagnosis: 425.8 - CARDIOMYOPATHY OTHER DISEASES CLASSIFIED EDiagnosis: 425.4 - CARDIOMYOPATHY, DILATEDDiagnosis: 424.0 - MITRAL VALVE PROLAPSEDiagnosis: 272.4 - HYPERLIPIDEMIAOV Order #: [id number]: [id number] Order #: [id number] Comments: Reason:OV Order #: [id number] VLDL 10 mg/dL (Normal) Range: 5-40 LDL 82 mg/dL (Normal) Range: 0-130 HDL 57 mg/dL (Normal) Comments: Reference Range HDL <40 mg/dL Low HDL Cholesterol HDL >or= 60 mg/dL High HDL Cholesterol TRIG 51 mg/dL (Normal) Comments: Serum Triglycerides Reference Interval Normal <150 mg/dL Borderline high 150 - 199 mg/dL High 200 - 499 mg/dL Very High > or = 500 mg/dL CHOL 149 mg/dL (Normal) Comments: <200 mg/dL Desirable 200-240 mg/dL Borderline >240 mg/dL High Risk [id number]-[id number] RENAL Comments: ORDERED TSH LIPID T4DRCLOVER ORDERED RENAL TSH CBCDInterface Comments: Interface Comments: Fasting 12 hours, may have water.Order Date: 01/15/12Diagnosis: V58.69 - LONG-TERM USE OF HIG H RISK MEDICATIONSDiagnosis: V45.02 - IMPLANTATION OF DEFIBRILLATOR, HX OFDiagnosis: V43.3 - HEART VALVE REPLACED BY OTHER MEANSDiagnosis: 904.8 - INJURY UNSPECIFIED BLOOD VESSEL LOWER EXTRDi agnosis: 794.31 - ABNORMAL ELECTROCARDIOGRAMDiagnosis: 786.09 - DYSPNEADiagnosis: 785.1 - PALPITATIONSDiagnosis: 428.0 - CONGESTIVE HEART FAILUREDiagnosis: 427.9 - CARDIAC DYSRHYTHMIA, UNSPEC.Diagnosis: 427.31 - ATRIAL FIBRILLATIONDiagnosis: 427.1 - VENTRICULAR TACHYCARDIADiagnosis: 425.8 - CARDIOMYOPATHY OTHER DISEASES CLASSIFIED EDiagnosis: 425.4 - CARDIOMYOPATHY, DILATEDDiagnosis: 424.0 - MITRAL VALVE PROLAPSEDiagnosis: 272.4 - HYPERLIPIDEMIAOV Order #: [id number] ID: [id number] Order #: [id number] Comments: Reason:OV Order #: [id number] CO2 26.0 mmol/L (Normal) Range: 21.0-32.0 CL 104 mmol/L (Normal) Range: 98-107 K 4.5 mmol/L (Normal) Range: 3.5-5.1 NA 137 mmol/L (Normal) Range: 136-145 PHOS 3.5 mg/dL (Normal) Range: 2.5-4.9 CA 8.6 mg/dL (Normal) Range: 8.5-10.1 ALB 3.7 g/dL (Normal) Range: 3.4-5.0 BC 21.3 {RATIO} (Abnormal) Range: 10-20 GFRAA 44 mL/min (Abnormal) GFR 36 mL/min (Abnormal) CREAT 1.5 mg/dL (Abnormal) Range: 0.6-1.0 BUN 32 mg/dL (Abnormal) Range: 7-18 GLU 87 mg/dL (Normal) Range: 70-110 1-Zpc-495720:21 T4 15.1 ug/dL (Abnormal) Comments: ORDERED TSH LIPID T4DRCLOVER ORDERED RENAL TSH CBCDInterface Comments: Interface Comments: Fasting 12 hours, may have water.Order Date: 01/15/12Diagnosis: V58.69 - LONG-TERM USE OF HIG H RISK MEDICATIONSDiagnosis: V45.02 - IMPLANTATION OF DEFIBRILLATOR, HX OFDiagnosis: V43.3 - HEART VALVE REPLACED BY OTHER MEANSDiagnosis: 904.8 - INJURY UNSPECIFIED BLOOD VESSEL LOWER EXTRDi agnosis: 794.31 - ABNORMAL ELECTROCARDIOGRAMDiagnosis: 786.09 - DYSPNEADiagnosis: 785.1 - PALPITATIONSDiagnosis: 428.0 - CONGESTIVE HEART FAILUREDiagnosis: 427.9 - CARDIAC DYSRHYTHMIA, UNSPEC.Diagnosis: 427.31 - ATRIAL FIBRILLATIONDiagnosis: 427.1 - VENTRICULAR TACHYCARDIADiagnosis: 425.8 - CARDIOMYOPATHY OTHER DISEASES CLASSIFIED EDiagnosis: 425.4 - CARDIOMYOPATHY, DILATEDDiagnosis: 424.0 - MITRAL VALVE PROLAPSEDiagnosis: 272.4 - HYPERLIPIDEMIAOV Order #: [id number] ID: [id number] Order #: [id number] Comments: Reason:OV Order #: [id number] Range: 4.8-13.9 7-Tfx-472475:21 TSH 1.69 {uIU/mL} (Normal) Comments: ORDERED TSH LIPID T4DRCLOVER ORDERED RENAL TSH CBCDInterface Comments: Interface Comments: Fasting 12 hours, may have water.Order Date: 01/15/12Diagnosis: V58.69 - LONG-TERM USE OF HIG H RISK MEDICATIONSDiagnosis: V45.02 - IMPLANTATION OF DEFIBRILLATOR, HX OFDiagnosis: V43.3 - HEART VALVE REPLACED BY OTHER MEANSDiagnosis: 904.8 - INJURY UNSPECIFIED BLOOD VESSEL LOWER EXTRDi agnosis: 794.31 - ABNORMAL ELECTROCARDIOGRAMDiagnosis: 786.09 - DYSPNEADiagnosis: 785.1 - PALPITATIONSDiagnosis: 428.0 - CONGESTIVE HEART FAILUREDiagnosis: 427.9 - CARDIAC DYSRHYTHMIA, UNSPEC.Diagnosis: 427.31 - ATRIAL FIBRILLATIONDiagnosis: 427.1 - VENTRICULAR TACHYCARDIADiagnosis: 425.8 - CARDIOMYOPATHY OTHER DISEASES CLASSIFIED EDiagnosis: 425.4 - CARDIOMYOPATHY, DILATEDDiagnosis: 424.0 - MITRAL VALVE PROLAPSEDiagnosis: 272.4 - HYPERLIPIDEMIAOV Order #: [id number] ID: [id number] Order #: [id number] Comments: Reason:OV Order #: [id number] Range: 0.358-3.74 58-Zjf-03711:57 BMP GAP 7 (Normal) Range: 5-15 CO2 29.0 mmol/L (Normal) Range: 21.0-32.0 CL 102 mmol/L (Normal) Range: 98-107 K 4.5 mmol/L (Normal) Range: 3.5-5.1 NA 138 mmol/L (Normal) Range: 136-145 BUN/CRE 21.4 {RATIO} (Abnormal) Range: 10-20 CA 9.0 mg/dL (Normal) Range: 8.5-10.1 EST GFR - AA 48 mL/min (Abnormal) EST GFR 40 mL/min (Abnormal) CREAT,SERUM 1.4 mg/dL (Abnormal) Range: 0.6-1.0 BUN 30 mg/dL (Abnormal) Range: 7-18 GLU 85 mg/dL (Normal) Range: 70-110 :57 CULTURE, URINE URINE CULTURE Culture exhibits no growth. (Normal) :57 T4 FREE DIRECT 1.52 ng/dL (Abnormal) Range: 0.76-1.46 :57 TSH 2.61 {uIU/mL} (Normal) Range: 0.358-3.74 84-Uhc-[id number]:38 URINE DAR CULTURE-NOREEN COL Comments: PATIENT NOT FASTINGPERFORMED BY: [facility]Ppl[facility] [facility] [id number] Information: SRC: URINE COUNT ([id number]) Result 1 NG36 (Normal) Comments: No growth in 36 - 48 hours. Urine Culture,Comprehensive Final report (Normal) :42 Urinalysis, Office (77630) UA - BILIRUBIN Negative (Normal) UA - BLOOD Non Hemolyzed Trace (Normal) UA - GLUCOSE Negative (Normal) UA - KETONES Negative mg/dL (Normal) UA - LEUKOCYTE ESTERASE Trace (Abnormal) UA - NITRITE Negative (Normal) UA - PH 5.0 (Normal) UA - PROTEIN Negative mg/dL (Normal) UA - SPECIFIC GRAVITY 1.005 (Normal) URINE UROBILINGN NOREEN TIMED Normal mg/dL (Normal) 45-Esc-734800:03 Urinalysis, Office (74457) UA - BILIRUBIN Negative (Normal) UA - BLOOD Hemolyzed Trace (Normal) UA - GLUCOSE Negative (Normal) UA - KETONES Negative mg/dL (Normal) UA - LEUKOCYTE ESTERASE Trace (Normal) UA - NITRITE Negative (Normal) UA - PH 5.0 (Normal) UA - PROTEIN Negative mg/dL (Normal) UA - SPECIFIC GRAVITY 1.010 (Normal) URINE UROBILINGN NOREEN TIMED Normal mg/dL (Normal) :00 BMP Comments: GEMMA ORDERED BMP MG T4 TSH LIVER LIPIDBONEZZI ORDERED BMP TSH T4F GAP 7 (Normal) Range: 5-15 CO2 28.0 mmol/L (Normal) Range: 21.0-32.0 CL 102 mmol/L (Normal) Range: 98-107 K 4.8 mmol/L (Normal) Range: 3.5-5.1 NA 137 mmol/L (Normal) Range: 136-145 CA 9.0 mg/dL (Normal) Range: 8.5-10.1 BUN/CRE 22.5 {RATIO} (Abnormal) Range: 10-20 EST GFR - AA 57 mL/min (Abnormal) EST GFR 47 mL/min (Abnormal) CREAT,SERUM 1.2 mg/dL (Abnormal) Range: 0.6-1.0 BUN 27 mg/dL (Abnormal) Range: 7-18 GLU 88 mg/dL (Normal) Range: 70-110 :00 LIPID Comments: GEMMA ORDERED BMP MG T4 TSH LIVER LIPIDBONEZZI ORDERED BMP TSH T4F VLDL 17 mg/dL (Normal) Range: 5-40 LDL 51 mg/dL (Normal) Range: 0-130 HDL 61 mg/dL (Normal) Comments: Reference Range HDL <40 mg/dL Low HDL Cholesterol HDL >or= 60 mg/dL High HDL Cholesterol TRIG 85 mg/dL (Normal) Comments: Serum Triglycerides Reference Interval Normal <150 mg/dL Borderline high 150 - 199 mg/dL High 200 - 499 mg/dL Very High > or = 500 mg/dL CHOL 129 mg/dL (Normal) Comments: <200 mg/dL Desirable 200-240 mg/dL Borderline >240 mg/dL High Risk :00 LIVER Comments: GEMMA ORDERED BMP MG T4 TSH LIVER LIPIDBONEZZI ORDERED BMP TSH T4F D BILI 0.11 mg/dL (Normal) Range: 0.00-0.30 T BILI 0.40 mg/dL (Normal) Range: 0.00-1.00 ALT 26 U/L (Normal) Range: 12-78 ALK P 70 U/L (Normal) Range: 50-136 AST 23 U/L (Normal) Range: 15-37 ALB 4.1 g/dL (Normal) Range: 3.4-5.0 T PROT 8.0 g/dL (Normal) Range: 6.4-8.2 :00 MG 2.0 mg/dL (Normal) Comments: GEMMA ORDERED BMP MG T4 TSH LIVER LIPIDBONEZZI ORDERED BMP TSH T4F Range: 1.5-2.2 :00 T4 FREE DIRECT 1.69 ng/dL (Abnormal) Comments: GEMMA ORDERED BMP MG T4 TSH LIVER LIPIDBONEZZI ORDERED BMP TSH T4F Range: 0.76-1.46 :00 T4 THYROXIN 14.3 ug/dL (Abnormal) Comments: GEMMA ORDERED BMP MG T4 TSH LIVER LIPIDBONEZZI ORDERED BMP TSH T4F Range: 4.8-13.9 :00 TSH 2.00 {uIU/mL} (Normal) Comments: GEMMA ORDERED BMP MG T4 TSH LIVER LIPIDBONEZZI ORDERED BMP TSH T4F Range: 0.358-3.74 4-Dxq-285094:46 Anaerobic and Aerobic Comments: PERFORMED BY: [facility] [facility] [id number] Information: SRC:EB RIGHT ELBOW Culture Result 1 NG36 (Normal) Comments: No growth in 36 - 48 hours. Aerobic Culture Final report (Normal) Result 1 [id number] (Normal) Comments: No aerobic or anaerobic growth in 72 hours. Anaerobic Culture Final report (Normal) [id number]:39 Urinalysis, Office ([id number]) UA - BILIRUBIN Negative (Normal) UA - BLOOD Negative (Normal) UA - GLUCOSE Negative (Normal) UA - KETONES Negative mg/dL (Normal) UA - LEUKOCYTE ESTERASE Negative (Normal) UA - NITRITE Negative (Normal) UA - PH 5.0 (Normal) UA - PROTEIN Negative mg/dL (Normal) UA - SPECIFIC GRAVITY 1.015 (Normal) URINE UROBILINGN NOREEN TIMED 2 mg/dL (Normal) :00 L/S SPINE,MIN 4 VIEWS Radiology Report See Note (Normal) Comments: CLINICAL:Female, 70 years old. Fell Wednesday, August 25, 2010. Complains ofseverelower back pain radiating into right hip. X-RAY EXAMINATION - LUMBAR SPINE TECHNIQUE:Five views of the lumbar spine were obtained. COMPARISON:None FINDINGS:There is significant levoscoliosis of the lumbar spine involvingprimarilyL3, L4, L5. As seen in the AP projection there is wedging of L3 and L4 tothe right and wedgin g of L5 to the left. These changes have an appearancewhich is most likely chronic. There is degenerative disk disease at L3-4,L4-5 and L5-S1. There is grade 1 spondylolisthesis at L4-5. There is nopars defect identified. No abnormality of pedicles is seen. There aredegenerative changes of the facet joints. The degenerative change of thefacet joints is most marked at L3-4, L4-5, and L5-S1. There aredeg enerative changes of the sacroiliac joints more marked on the rightthanthe left. 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 There is a filter in the inferior vena cava. 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 Thereis also arthritis involving both sacroiliac joints, more marked on theright than the left and the visualized portion of both hips more on theleft than the right. These changes are most likely chronic. Dictated on 08/11 04/21 1107 by HI BLAIRTranscribed on 08/29/10 1347 by ITS IMPORTSign by HI BLAIR on 08/29/10 1348 Sign by: HI BLAIR FREE T3 2.3 pg/mL (Normal) Comments: ORDERED T4 T3 TSHDR.CLARY ORDERED TSH TPO T3F T4F 2:06 Range: 2.18-3.98 [place] AB 6676 40 {IU/mL} Comments: ORDERED T4 T3 TSHDRCLOVER ORDERED TSH TPO T3F T4F 2:06 (Abnormal) Range: 0-34 Comments: Performed at: - [facility] [id number] Director: Bella Taylor MD, Phone: [phone] T3 TOTAL 0.8 ng/mL (Normal) Comments: ORDERED T4 T3 TSHDR.BONEZZI ORDERED TSH TPO T3F T4F 2:06 Range: 0.7-1.9 T4 FREE DIRECT 1.35 ng/dL (Normal) Comments: ORDERED T4 T3 TSHDR.BONEZZCaitlin ORDERED TSH TPO T3F T4F 2:06 Range: 0.76-1.46 T4 THYROXIN 13.2 ug/dL (Normal) Comments: ORDERED T4 T3 TSHDR.BONEDELISAI ORDERED TSH TPO T3F T4F 2:06 Range: 4.8-13.9 TSH 4.31 {uIU/mL} Comments: ORDERED T4 T3 TSHDR.BONEZZI ORDERED TSH TPO T3F T4F 2:06 (Abnormal) Range: 0.358-3.74 28-Yln-885800:13 BMP GAP 12 (Normal) Range: 5-15 CO2 22.0 mmol/L (Normal) Range: 21.0-32.0 CL 106 mmol/L (Normal) Range: 98-107 CA 8.7 mg/dL (Normal) Range: 8.5-10.1 K 4.2 mmol/L (Normal) Range: 3.5-5.1 NA 140 mmol/L (Normal) Range: 136-145 BUN/CRE 20.0 {RATIO} (Normal) Range: 10-20 EST GFR - AA 48 mL/min (Abnormal) CREAT,SERUM 1.4 mg/dL (Abnormal) Range: 0.6-1.0 EST GFR 40 mL/min (Abnormal) BUN 28 mg/dL (Abnormal) Range: 7-18 GLU 95 mg/dL (Normal) Range: 70-110 18-Qid-035468:13 CBCD ABSOLUTE NEUT 5.1 3/uL (Normal) Range: 2.0-7.7 BASO% 0.3 % (Normal) Range: 0-1 EO% 2.6 % (Normal) Range: 0-5 MONO% 11.9 % (Abnormal) Range: 0-10 LY% 14.4 % (Abnormal) Range: 19-41 MPV 8.8 fL (Normal) Range: 6.5-12.0 NEUT% 70.8 % (Abnormal) Range: 47-70 PLT 226 K/mm3 (Normal) Range: 150-450 RDW 15.3 % (Abnormal) Range: 11.6-14.6 MCH 30.1 pg (Normal) Range: 27.0-32.0 MCHC 33.7 g/dL (Normal) Range: 32-36 MCV 89.2 fL (Normal) Range: 81-99 HCT 34.8 % (Abnormal) Range: 37-47 HGB 11.7 g/dL (Abnormal) Range: 12.0-16.0 RBC 3.90 {M/mm3} (Abnormal) Range: 4.2-5.4 WBC 7.1 K/mm3 (Normal) Range: 4.4-11.0 51-Sds-131323:34 Vaginitis/Vaginosis, DNA Probe Comments: PERFORMED BY: [facility] [facility] [id number] Information: SRC:CE Gardnerella vaginalis Negative (Normal) Trichomonas vaginalis Negative (Normal) Ileana species Negative (Normal) Plan of Care Name Dates Details Instructions Inflamed seborrheic keratosis : Cryotherapy Indication: Inflamed seborrheic keratosis Actinic keratosis : Cryotherapy Indication: Actinic keratosis BMI 27.0-27.9,adult : Eprescribed prescriptions (G8553) Indication: BMI 27.0-27.9,adult Neoplasm of uncertain behavior of skin : Shave Biopsy with Epi Indication: Neoplasm of uncertain behavior of skin Neoplasm of uncertain behavior of skin : Eprescribed prescriptions (G8553) Indication: Neoplasm of uncertain behavior of skin DVT, bilateral lower limbs : Eprescribed prescriptions (G8553) Indication: DVT, bilateral lower limbs Inflamed seborrheic keratosis : Cryotherapy Indication: Inflamed seborrheic keratosis BMI 27.0-27.9,adult : Eprescribed prescriptions (G8553) Indication: BMI 27.0-27.9,adult Neoplasm of uncertain behavior of skin : Shave Biopsy with Epi Indication: Neoplasm of uncertain behavior of skin BMI 29.0-29.9,adult : Eprescribed prescriptions (G8553) Indication: BMI 29.0-29.9,adult Nonsmoker : Follow up if no improvement or if symptoms worsen Indication: Nonsmoker Neoplasm of uncertain behavior of skin : Shave Biopsy with Epi Indication: Neoplasm of uncertain behavior of skin Cough : Eprescribed prescriptions (G8553) Indication: Cough Cough : Eprescribed prescriptions (G8553) Indication: Cough Upper respiratory tract infection, unspecified type : Cough Medicines, Nonprescription: cough Indication: Upper respiratory tract infection, unspecified type Upper respiratory tract infection, unspecified type : Eprescribed prescriptions (G8553) Indication: Upper respiratory tract infection, unspecified type Abnormal cortisol level : Eprescribed prescriptions (G8553) Indication: Abnormal cortisol level Myalgia : Eprescribed prescriptions (G8553) Indication: Myalgia Abdominal pain, acute : Eprescribed prescriptions (G8553) Indication: Abdominal pain, acute Abdominal pain, acute : Follow up 3-4 days Indication: Abdominal pain, acute Fatigue : Eprescribed prescriptions (G8553) Indication: Fatigue Actinic keratosis : Shave Biopsy with Epi Indication: Actinic keratosis Wart : Follow up in 1 week for wart removal Indication: Wart Visit for suture removal : Follow up if no improvement or if symptoms worsen Indication: Visit for suture removal Concussion : Reviewed Plate Conditioner Letter Indication: Concussion Fall, accidental : Reviewed Plate Conditioner Letter Indication: Fall, accidental Fall, accidental : Reviewed Lab Indication: Fall, accidental Spinal stenosis of lumbar region : Flu (Influenza) *: flu Indication: Spinal stenosis of lumbar region Spinal stenosis of lumbar region : Eprescribed prescriptions (G8553) Indication: Spinal stenosis of lumbar region Diarrhea : Follow up if no improvement or if symptoms worsen Indication: Diarrhea PVT (paroxysmal ventricular tachycardia) : Tachycardia: arrhythmia Indication: PVT (paroxysmal ventricular tachycardia) PVT (paroxysmal ventricular tachycardia) : Eprescribed prescriptions (G8553) Indication: PVT (paroxysmal ventricular tachycardia) Limb pain : Allergies: allergies Indication: Limb pain Limb pain : Eprescribed prescriptions (G8553) Indication: Limb pain Dysuria (Renamed from Difficult or painful urination) : Eprescribed prescriptions (G8553) Indication: Dysuria (Renamed from Difficult or painful urination) Neoplasm of uncertain behavior of skin : Shave Biopsy with Epi Indication: Neoplasm of uncertain behavior of skin Chronic fatigue : Eprescribed prescriptions (G8553) Indication: Chronic fatigue Other constipation : Reviewed Lab Indication: Other constipation Shoulder pain : Reviewed Diagnostic Tests Indication: Shoulder pain Other constipation : Reviewed Diagnostic Tests Indication: Other constipation Cough : Follow up if no improvement or if symptoms worsen Indication: Cough Influenza : Flu (Influenza) *: flu Indication: Influenza Rash : Eprescribed prescriptions (G8553) Indication: Rash Inflamed seborrheic keratosis : Cryotherapy Indication: Inflamed seborrheic keratosis Bronchitis : Continue Current Prescription(s) Indication: Bronchitis Wheezing : *Antibiotic Usage Education - Female Indication: Wheezing Wheezing : Solu Medrol Injection/ Education Indication: Wheezing Cerumen impaction : Follow up if no improvement or if symptoms worsen Indication: Cerumen impaction Inflamed seborrheic keratosis : Cryotherapy Indication: Inflamed seborrheic keratosis Bronchitis : Follow up if no improvement or if symptoms worsen Indication: Bronchitis Bronchitis : *URI Treatment Indication: Bronchitis Bronchitis : *URI Symptoms Indication: Bronchitis Bronchitis : *Antibiotic Usage Education - Female Indication: Bronchitis Allergic rhinitis : Allergic Rhinitis *: allergic rhinitis Indication: Allergic rhinitis Acute sinusitis : Follow up if no improvement or if symptoms worsen Indication: Acute sinusitis Acute sinusitis : *URI Treatment Indication: Acute sinusitis Acute sinusitis : *Antibiotic Usage Education - Female Indication: Acute sinusitis Acute sinusitis : *URI Symptoms Indication: Acute sinusitis Pharyngitis, acute : Sore throat: diagnosis and treatment Indication: Pharyngitis, acute Acute sinusitis : *URI Treatment Indication: Acute sinusitis Acute sinusitis : *URI Symptoms Indication: Acute sinusitis Bronchitis : Follow up in 3 months Indication: Bronchitis Bronchitis : *URI Treatment Indication: Bronchitis Bronchitis : *URI Symptoms Indication: Bronchitis Bronchitis : *Antibiotic Usage Education - Female Indication: Bronchitis Depression : Depression: Brief Version *: depressed Indication: Depression Inflamed seborrheic keratosis : Cryotherapy Indication: Inflamed seborrheic keratosis Hypothyroidism : Hypothyroidism: Brief Version *: gland Indication: Hypothyroidism Bronchitis : *URI Treatment Indication: Bronchitis Bronchitis : *URI Symptoms Indication: Bronchitis Bronchitis : *Antibiotic Usage Education - Female Indication: Bronchitis Cerumen impaction : Follow up in on Tues with [facility] for ear irrigation Indication: Cerumen impaction Bronchitis : *URI Treatment Indication: Bronchitis Bronchitis : *URI Symptoms Indication: Bronchitis Bronchitis : *Antibiotic Usage Education - Female Indication: Bronchitis Acute sinusitis : *Antibiotic Usage Education - Female Indication: Acute sinusitis Limb pain : Hip Bursa Indication: Limb pain Bronchitis : *URI Treatment Indication: Bronchitis Bronchitis : *URI Symptoms Indication: Bronchitis Bronchitis : *Antibiotic Usage Education - Female Indication: Bronchitis Upper respiratory tract infection, unspecified type : *Antibiotic Usage Education - Female Indication: Upper respiratory tract infection, unspecified type Planned Observations TSH ([id number])Indication: Memory impairment On: : Request AMMONIA (51028)Indication: Memory impairment On: :11 Request Methymalonic Acid, Serum (25249)Indication: Memory impairment On: : Request VITAMIN B-12 (CYANOCOBALAMIN) (57508)Indication: Memory impairment On: :11 Request FOLIC ACID SERUM (50954)Indication: Memory impairment On: :11 Request METABOLIC PANEL, COMPREHENSIVE (58298)Indication: Coronary artery disease On: 74-Gxq-897579:02 Request Comments: fax copy to SHAWN Bonilla, BY NMR (10467)Indication: Coronary artery disease On: 08-Nqf-709183:02 Request CALCIFIDIOL (42167) VIT D 25Indication: Vitamin D deficiency On: 72-Ruq-783740:02 Request Metabolic Panel, Comprehensive (72244)Indication: Hypokalemia On: 12-Nov-2017 Request Comments: fax a copy to Dr. Tucker [phone] Huang [phone] MAGNESIUM (41622)Indication: Hypokalemia On: 7-Jwt-438180:03 Request Metabolic Panel, Comprehensive (02511)Indication: Hypokalemia On: 6-Duw-259258:02 Request Comments: fax a copy to Dr. Tucker [phone] Huang [phone] Metabolic Panel, Comprehensive ([id number])Indication: Hypokalemia On: 05-Nov-2017 Request Comments: fax a copy to Dr. Tucker [phone] Huang [phone] Metabolic Panel, Comprehensive (67575)Indication: Hypokalemia On: 29-Oct-2017 Request Comments: fax a copy to Dr. Caitlin May [phone] Huang [phone] Metabolic Panel, Comprehensive (36011)Indication: Hypokalemia On: 22-Oct-2017 Request Comments: fax a copy to Dr. Caitlin May [phone] Huang [phone] Metabolic Panel, Comprehensive (55041)Indication: Hypokalemia On: 15-Oct-2017 Request Comments: fax a copy to Dr. Caitlin [phone] Huang [phone] Metabolic Panel, Comprehensive ([id number])Indication: Hypokalemia On: 08-Oct-2017 Request Comments: fax a copy to Dr. Caitlin May [phone] Huang [phone] Metabolic Panel, Comprehensive ([id number])Indication: Hypokalemia On: 01-Oct-2017 Request Comments: fax a copy to Dr. Caitlin May [phone] Huang [phone] Metabolic Panel, Comprehensive (30584)Indication: Hypokalemia On: 24-Sep-2017 Request Comments: fax a copy to Dr. Caitlin May [phone] Huang [phone] Renal function Panel ([id number])Indication: Renal insufficiency (Renamed from Renal function impairment) On: 69-Mop-329223:23 Request URIC ACID BLOOD (48727)Indication: Abnormal laboratory test On: 67-Sla-904227:53 Request Metabolic Panel, Comprehensive (33753)Indication: Hypokalemia On: 17-Sep-2017 Request Comments: fax a copy to Dr. Caitlin May [phone] Huang [phone] Metabolic Panel, Comprehensive ([id number])Indication: Hypokalemia On: 10-Sep-2017 Request Comments: fax a copy to Dr. Caitlin [phone] Huang [phone] Metabolic Panel, Basic (84272)Indication: Cardiomyopathy On: 78-Wpm-232571:02 Request Comments: now stat and prn CREATININE BLOOD (26766)Indication: Left leg swelling On: 99-Cns-525170:05 Request Metabolic Panel, Basic (52261)Indication: Renal insufficiency (Renamed from Renal function impairment) On: 11-Rod-873163:16 Request Comments: re check in 4 weeks T4, FREE (THYROXINE) ([id number])Indication: Hypothyroidism On: 52-Uxj-753988:49 Request CALCIFIDIOL (41540) VIT D 25Indication: Vitamin D deficiency On: :47 Request TSH (THYROID STIMULATING HORMONE) ([id number])Indication: Hypothyroidism On: 02-Yse-478374:46 Request CREATININE BLOOD (09906)Indication: Abdominal pain, acute On: 57-Hpj-215676:34 Request Metabolic Panel, Basic (70482)Indication: Abdominal pain, acute On: :31 Request T4, FREE (THYROXINE) ([id number])Indication: Hypothyroidism On: :30 Request TSH ([id number])Indication: Hypothyroidism On: :30 Request METABOLIC PANEL, COMPREHENSIVE (72175)Indication: DVT, bilateral lower limbs On: 26-Dpa-556180:48 Request PTT (Activated Partial Thromboplastin Time) ([id number])Indication: DVT, bilateral lower limbs On: :29 Request PT (Prothrobim Time) (49062)Indication: DVT, bilateral lower limbs On: 44-Lck-407319:29 Request Factor 2 (Prothrombin) Gene Mutation (00675)Indication: DVT, bilateral lower limbs On: 57-Bkv-109704:29 Request Factor V Leiden (90403)Indication: DVT, bilateral lower limbs On: 49-Dit-891955:28 Request Antiphospholipid atb (95847)Indication: DVT, bilateral lower limbs On: 87-Rwz-436831:28 Request CBC, Platelets & Auto Diff (02560)Indication: Abdominal pain, acute On: 76-Kfv-51858:38 Request Comments: coipy to Dr. jessie armendariz stat HEPATIC FUNCTION PANEL (03563)Indication: Abdominal pain, acute On: 42-Ndl-58669:37 Request Comments: to stat copy to Dr. natalie armendariz Metabolic Panel, Comprehensive ([id number])Indication: Abdominal pain, acute On: 51-Dgw-29664:23 Request Comments: all STAT Sed Rate Erythrocyte (44473)Indication: Abdominal pain, acute On: :19 Request CBC, Platelets & Auto Diff ([id number])Indication: Abdominal pain, acute On: :19 Request Ferritin (33874)Indication: Abnormal RBC indices On: :08 Request CALCIFEDIOL (44389)Indication: Vitamin D deficiency On: :02 Request Folic Acid Serum (62872)Indication: Memory impairment On: :35 Request Methymalonic Acid, Serum (01643)Indication: Memory impairment On: :35 Request Vitamin B-12 (cyanocobalamin) (24540)Indication: Memory impairment On: :35 Request Metabolic Panel, Basic ([id number])Indication: Cardiomyopathy in other diseases classified elsewhere On: 4-Bkd-818920:43 Request Urinalysis, Office (17534)Indication: Abdominal pain, acute On: 73-Pfs-404550:47 Request URINE DAR CULTURE-IDENTIFICATN ([id number])Indication: Abdominal pain, acute On: 12-Pbp-047493:20 Request TSH ([id number])Indication: Hypothyroidism On: 47-Pgz-899943:50 Request Comments: 8 weeks TSH ([id number])Indication: Hypothyroidism On: 69-Nlq-256187:58 Request URINALYSIS, W/ MICRO ([id number])Indication: Coronary artery disease On: :57 Request METABOLIC PANEL, COMPREHENSIVE ([id number])Indication: Coronary artery disease On: 28-Yeu-311075:57 Request LIPID PANEL ([id number])Indication: Coronary artery disease On: 97-Alx-664030:57 Request CBC with auto diff ([id number])Indication: Coronary artery disease On: 84-Qhf-753737:57 Request C-REACTIVE PROTEIN ([id number])Indication: Abdominal pain, acute, generalized On: :31 Request Comments: stat CBC W/AUTO DIFF WBC ([id number])Indication: Abdominal pain, acute, generalized On: :31 Request Comments: stat METABOLIC PANEL, COMPREHENSIVE ([id number])Indication: Abdominal pain, acute, generalized On: 28-Vpu-052464:31 Request Comments: stat SED RATE ERYTHROCYTE ([id number])Indication: Abdominal pain, acute, generalized On: :26 Request CBC with auto diff ([id number])Indication: Cardiomyopathy On: :59 Request Comments: copy to Dr. valerio URINALYSIS, W/ MICRO ([id number])Indication: Cardiomyopathy On: :58 Request METABOLIC PANEL, COMPREHENSIVE ([id number])Indication: Cardiomyopathy On: :58 Request LIPID PANEL ([id number])Indication: Cardiomyopathy On: :58 Request TSH ([id number])Indication: Hypothyroidism On: :58 Request CBC W/AUTO DIFF WBC ([id number])Indication: Coronary artery disease On: :08 Request Comments: copy to cardiology TSH ([id number])Indication: Hypothyroidism On: :08 Request URINALYSIS, W/ MICRO ([id number])Indication: Coronary artery disease On: :08 Request METABOLIC PANEL, COMPREHENSIVE ([id number])Indication: Coronary artery disease On: :08 Request LIPID PANEL ([id number])Indication: Coronary artery disease On: :08 Request METABOLIC PANEL, COMPREHENSIVE ([id number])Indication: Coronary artery disease On: :15 Request Comments: 05-24 CBC WITH MANUAL DIFF ([id number])Indication: Coronary artery disease On: 42-Ixf-157428:15 Request Comments: 05-24 TSH ([id number])Indication: Hypothyroidism On: 03-Mch-667236:13 Request TSH ([id number])Indication: Hypothyroidism On: 03-Ona-658215:18 Request CBC WITH MANUAL DIFF ([id number])Indication: Coronary artery disease On: :11 Request Comments: copy to iman URINALYSIS, W/ MICRO ([id number])Indication: Coronary artery disease On: :11 Request METABOLIC PANEL, COMPREHENSIVE ([id number])Indication: Coronary artery disease On: 5-Emw-701595:11 Request LIPID PANEL ([id number])Indication: Coronary artery disease On: 5-Vgj-402098:11 Request TSH ([id number])Indication: Hypothyroidism On: 5-Qev-028647:11 Request TSH ([id number])Indication: Hypothyroidism On: 15-Lpe-036208:02 Request METABOLIC PANEL, COMPREHENSIVE ([id number])Indication: Cardiomyopathy On: 75-Ags-335354:02 Request LIPID PANEL ([id number])Indication: Cardiomyopathy On: 11-Psu-654372:02 Request CBC WITH MANUAL DIFF ([id number])Indication: Cardiomyopathy On: 91-Ggc-109359:02 Request TSH ([id number])Indication: Hypothyroidism On: :29 Request Renal function Panel ([id number])Indication: Renal insufficiency (Renamed from Renal function impairment) On: :29 Request CBC (Auto) ([id number])Indication: Cardiomyopathy On: :40 Request Metabolic Panel, Comprehensive ([id number])Indication: Cardiomyopathy On: :40 Request T4, FREE (THYROXINE) ([id number])Indication: Hypothyroidism On: 36-Axz-297715:39 Request TSH ([id number])Indication: Hypothyroidism On: 15-Vci-761373:39 Request TSH ([id number])Indication: Hypothyroidism On: 1-Yrw-185264:09 Request CBC (Auto) ([id number])Indication: Cardiomyopathy On: 5-Tsu-341859:08 Request Renal function Panel ([id number])Indication: Cardiomyopathy On: 1-Qhn-281686:08 Request Metabolic Panel, Basic ([id number])Indication: Cardiomyopathy On: :03 Request T4, FREE (THYROXINE) ([id number])Indication: Hypothyroidism On: 49-Tiv-006047:03 Request TSH ([id number])Indication: Hypothyroidism On: 28-Ois-874128:03 Request Metabolic Panel, Basic ([id number])Indication: Renal insufficiency (Renamed from Renal function impairment) On: :36 Request T4, FREE (THYROXINE) ([id number])Indication: Hypothyroidism On: :35 Request TSH ([id number])Indication: Hypothyroidism On: :35 Request DAR CULTURE-OTHER ([id number])Indication: Bursitis, olecranon On: 0-Oet-782043:18 Request Comments: olecranon bursa Metabolic Panel, Basic ([id number])Indication: Hyperlipemia On: 33-Aoy-030217:09 Request Metabolic Panel, Basic ([id number])Indication: Gastroenteritis On: 79-Oly-584797:56 Request Comments: stat CBC (Auto) ([id number])Indication: Gastroenteritis On: 79-Uzt-102099:56 Request Metabolic Panel, Basic ([id number])Indication: Cardiomyopathy On: :53 Request TSH ([id number])Indication: PVT (paroxysmal ventricular tachycardia) On: :53 Request URINALYSIS ([id number])Indication: Cardiomyopathy On: :53 Request CBC (Auto) ([id number])Indication: Cardiomyopathy On: :53 Request INFCT ANTGN TRICH VAGIN DIRECT PRB ([id number])Indication: Vaginal discharge On: :31 Request GARDNERELLA VAG, NUCLEIC ACID DIR PROBE ([id number])Indication: Vaginal discharge On: :31 Request ILEANA, NUCLEIC ACID DIRECT PROBE ([id number])Indication: Vaginal discharge On: :31 Request Planned Encounters Medical; [facility] 2 Month FU - On: 06-Jul-2018 10:15 [facility] Clary TIRADO, Minerva Oseguera MD Planned Procedures Flu Vaccine (Quadrivalent) On: 01-Jun-2018 Intent 21613Cs: Visit, Nurse Comments: Lot #[id number]-L dltd, IMDose prefilled syringegiven by:SORAIDA Calloway reviewed and ABN signed Aerosol Treatment ([id number])By: On: 08-Jan-2018 Intent Minerva Vergara MD, MD, Dana M SCREENING DIGITAL On: 23-Sep-2017 Intent TOMOSYNTHESIS OF BREAST ([id number])By: Minerva Vergara MD, MD, Dana M Venous Doppler - LowerBy: On: 23-Sep-2017 Intent Minerva Vergara MD Comments: lower left extremity follow up on DVT from 07-27 due october Minerva TIRADO CTA ABDOMEN AND PELVIS On: 28-Jul-2017 Intent INCLUDING IMAGE POSTPROCESSING ([id number])By: Minerva Vergara MD, MD, Dana M VENOUS DOPPLER LOWER On: 28-Jul-2017 Intent EXTREMITY ([id number])By: Clary Comments: upper and lower left legcall results to [phone] Minerva TIRADO MD, Dana M Radiology - ChestBy: Clary On: 04-Apr-2017 Intent Minerva TIRADO MD, Dana M Comments: follow up in [address] - Abdomen & Pelvis (IV On: 03-Jan-2017 Intent Contrast Needed)By: Clary Comments: also assure oral contrast. copy to Dr. montez. Minerva TIRADO MD, Dana M PFT - CompleteBy: Clary TIRADO, On: 16-Dec-2016 Intent iMnerva Oseguera MD XR ABDOMEN FLAT PLATE AND On: 04-Dec-2016 Intent ERECT ([id number])By: Ida Quiñonez DO CT - Chest (IV Contrast On: 04-Dec-2016 Intent Needed)By: Ida Quiñonez DO Comments: pe protocol today CT - Abdomen (Without On: 25-Nov-2016 Intent Contrast)By: Minerva Vergara MD, MD, Dana M Spirometry ([id number])By: On: 31-Oct-2016 Intent Minerva Vergara MD Comments: see scanned document of test done to see results reviewed today with patient Minerva TIRADO Radiology - ChestBy: Clary On: 31-Oct-2016 Minerva Wright MD, MD, Dana M Comments: call wet read Radiology - KUBBy: Clary On: 31-Oct-2016 Minerva Wright MD, MD, Dana M Comments: upright. call wet read to [phone] Bone Density StudyBy: Clary On: 29-Jul-2016 Intent Minerva TIRADO MD, Dana M MAMMOGRAM, BILATERAL On: 29-Jul-2016 Intent ([id number])By: Minerva Vergara MD, MD, Dana M Flu Vaccine (Quadrivalent) On: 09-May-2016 Intent [id number]: Meka Gillette LPN ELECTROCARDIOGRAM, COMPLETE On: 09-Aug-2015 Intent (ECG) ([id number])By: Memo Franklin CNP Radiology - ChestBy: Clary On: 17-Jul-2015 Intent Minerva TIRADO MD, Dana M Aerosol Treatment ([id number])By: On: 14-Jul-2015 Intent Minerva Vergara MD, MD, Dana M Aerosol Treatment ([id number])By: On: 29-May-2015 Intent Meka Gillette LPN ADMINISTRATION OF INFLUENZA On: 25-Apr-2015 Intent VIRUS VACCINE ([id number])By: Minerva Vergara MD, MD, Dana M Flu Vaccine (Quadrivalent) On: 25-Apr-2015 Intent 71308Yl: Minerva Vergara MD Comments: lot: [id number]: 01/08/16ite/route: L del/IMamt: 0.5mLVIS signed when applicableИВНА Rodriguez MD, Dana M ACUTE ABDOMINAL SERIES On: 27-Mar-2015 Intent (36620)By: Ida Quiñonez DO Comments: stat call wet read INFUSION, NORMAL SALINE On: 04-Nov-2014 Intent SOLUTION , 1000 CC (Special Comments: only 500 ccIV Therapy [id number], 1 inchSite: r acTolerated: well, x 2nd attempt. L ac infiltrated and rpessure applied then covered with gauze and bandageno redness or swelling, no s/s infiltrationMegan, SHUTDOWN COORDINATOR Coverage Instructions Apply. See MCM: 2048) ([id number])By: Minerva Vergara MD, MD, Dana M Radiology - KUBBy: Clary On: 04-Nov-2014 Intent Minerva TIRADO MD, Dana M Comments: do today and call over wet read Radiology - Shoulder - On: 04-Nov-2014 Intent RightBy: Minerva Vergara MD, MD, Dana M Wax CurettesBy: Clary TIRADO, On: 15-Sep-2014 Intent Minerva Oseguera MD Ear Irrigation ([id number])By: On: 15-Sep-2014 Intent Minerva Vergara MD, MD, Dana M Radiology - Shoulder - On: 15-Sep-2014 Intent RightBy: Minerva Vergara MD, MD, Dana M Radiology - ChestBy: Clary On: 15-Sep-2014 Intent Minerva TIRADO MD, Dana M Comments: by next week if not better with atb Aerosol Treatment ([id number])By: On: 01-Sep-2014 Intent Ciesa CAR DELIVERER, Saba DEXA SCAN AXIAL SKELETON On: 18-Feb-2014 Intent ([id number])By: Minerva Vergara MD, MD, Dana M MAMMOGRAM, SCREENING, BOTH On: 18-Feb-2014 Intent BREAST ([id number])By: Clary TIRADO, Minerva Vergara MD, Minerva Painting INFUSION, NORMAL SALINE On: 29-Oct-2013 Intent SOLUTION , 250 CC (Special Coverage Instructions Apply. See MCM: 2049) ([id number])By: Tiera Carmen DO IV Needle placement On: 29-Oct-2013 Intent (64678)By: Kermit WEBER, Comments: 3rd attempt successful in R edinJeanneRJ Tiera IV Infusion (52577)By: Kermit On: 29-Oct-2013 Tiera Wright DO Eprescribed prescriptions On: 29-Oct-2013 Intent (G8553)By: Tirea Carmen DO Aerosol Treatment ([id number])By: On: 29-Oct-2013 Intent Tiera Carmen DO Solu- Medrol Injection, 125mg On: 29-Oct-2013 Intent (J2930)By: Kermit WEBER, Comments: lot: [id number]: 12/23site/route: RGM/IMamt:2mLVIS signed when applicableChelseaИВАН Tiera Eprescribed prescriptions On: 26-Oct-2013 Intent (G8553)By: Clary TIRADO, Minerva Oseguera MD Wax CurettesBy: Ciesa CAR DELIVERER, On: 22-Oct-2013 Intent Saba Ear Irrigation ([id number])By: On: 22-Oct-2013 Intent Ciesa CAR DELIVERER, Saba Eprescribed prescriptions On: 25-Jun-2013 Intent (G8553)By: Jeanne Gil LPN Wax CurettesBy: Clary TIRADO, On: 18-Jun-2013 Intent Minerva Oseguera MD Ear Irrigation ([id number])By: On: 18-Jun-2013 Intent Minerva Vergara MD, MD, Dana M Eprescribed prescriptions On: 18-Jun-2013 Intent (G8553)By: Jeanne Gil LPN MAMMOGRAM, SCREENING, BOTH On: 16-Mar-2013 Intent BREASTS (03043)By: Clary Comments: 06-23 due Minerva TIRADO MD, Dana M Wax CurettesBy: Clary TIRADO, On: 16-Mar-2013 Intent Minerva Oseguera MD Ear Irrigation (14027)By: On: 16-Mar-2013 Intent Minerva Vergara MD, MD, Dana M Inhaler Demonstration On: 15-Feb-2013 Intent (57032)By: Memo Franklin CNP Aerosol Treatment (10060)By: On: 15-Feb-2013 Intent Meom Franklin CNP Eprescribed prescriptions On: 08-Dec-2012 Intent (G8553)By: Jeanne Gil LPN Aerosol Treatment (22765)By: On: 03-Dec-2012 Intent Clary TIRADO, Minerva Oseguera MD Pulse Oximetry (51823)By: On: 03-Dec-2012 Intent ARON Lawrence Wax CurettesBy: Kala HAZEL, On: 25-Nov-2012 Intent Saba Ear Irrigation (74662)By: On: 25-Nov-2012 Intent Memo Franklin CNP SPECIMEN HNDLNG/TRNSPRT, OFFC On: 25-Nov-2012 Intent > LAB (81129)By: Nova Posadas LPN Breast Screening - On: 28-Apr-2012 Intent BilateralBy: Clary TIRADO, Minerva Oseguera MD Bone Density StudyBy: Clary On: 28-Apr-2012 Intent Minerva TIRADO MD, Dana M Aerosol Treatment (10974)By: On: 28-Apr-2012 Intent Minerva Vergara MD, MD, Dana M TDAP VACCINE >7 IM (47116)By: On: 06-Feb-2012 Intent Sneha Vasquez doppler/ultrasound - right On: 20-Jan-2012 Intent calfBy: Minerva Vergara MD Comments: attention subcutaneous mass, history of clots Minerva Vergara MD Ear Irrigation (03091)By: On: 11-Oct-2011 Intent Minerva Vergara MD Comments: med amt of wax removed from the left ear. small amt of wax removed from the right ear. pt tolerated well. Minerva TIRADO Wax CurettesBy: Clary TIRADO, On: 11-Oct-2011 Intent Minerva Oseguera MD Aerosol Treatment ([id number])By: On: 08-Oct-2011 Intent Kala HAZEL Saba Aerosol Treatment (85882)By: On: 04-Oct-2011 Intent Kala HAZEL Saba EKG (95209)By: Clary TIRADO, On: 15-Aug-2011 Intent Minerva Oseguera MD Comments: see scanned document. Nerve ConductionBy: Clary On: 29-Jul-2011 Intent Minerva TIRADO MD, Dana M Comments: lower leg EMGBy: Minerva Vergara MD On: 29-Jul-2011 Intent Minerva Vergara MD Solu -Medrol Injection, 125 On: 16-Apr-2011 Intent mg (J2930)By: Kala HAZEL, Comments: Lot:[id number]:sep 11 2013Amt:125mgRoute:IMSite:right hip Given By: RJ Soriano THER/PROPH/DIAG IV INF, INIT On: 15-Feb-2011 Intent (90034)By: Minerva Vergara MD, MD, Dana M Rocephin Injection, 2 Gram On: 15-Feb-2011 Intent (J0696)By: Minerva Vergara MD, MD, Dana M Kenalog Injection, 10 mgm On: 25-Dec-2010 Intent (J3301)By: Minerva Vergara MD, MD, Dana M Kenalog Injection, 10 mgm On: 25-Dec-2010 Intent (J3301)By: Minerva Vergara MD, MD, Dana M Kenalog Injection, 10 mgm On: 25-Dec-2010 Intent (J3301)By: Minerva Vergara MD, MD Minerva M Kenalog Injection, 10 mgm On: 25-Dec-2010 Intent (J3301)By: Minerva Vergara MD, MD, Dana M Radiology - ChestBy: Clary On: 03-Sep-2010 Intent Minerva TIRADO MD, Dana M Pulse Oximetry ([id number])By: On: 03-Sep-2010 Intent ARON Lawrence Radiology - Lumbar SpineBy: On: 29-Aug-2010 Intent Ida Quiñonez DO Comments: call wet read Venous Doppler - LeftBy: On: 23-Jul-2010 Intent Minerva Vergara MD Comments: leg. send copy Dr. Thompson in [place] [facility] Minerva TIRADO HYDRATION IV INFUSION, INIT On: 28-Jun-2010 Intent ([id number])By: Minerva Vergara MD Comments: only gave 500 cc of LR with CMP historyLot #:[id number] date:mount given:500ml Route: IVSite given:left wrist Given by: teexteessell Butterfly needle placed to left wrist with minimal difficulty 500ml LR infused Minerva Vergara MD Planned Medications INFUSION, NORMAL SALINE SOLUTION , 1000 CC Ordered: 04-Nov-2014 Pending Minerva Vergara MD, MD, Dana M INFUSION, NORMAL SALINE SOLUTION , 250 CC Ordered: 29-Oct-2013 Pending Kermit DO, Tiera INJECTION, CEFTRIAXONE SODIUM, PER 250 MG Ordered: 15-Feb-2011 Pending Minerva Vergara MD, MD, Dana M INJECTION, METHYLPREDNISOLONE SODIUM SUCCINATE, UP TO 125 MG Ordered: 16-Apr-2011 Pending Memo Franklin CNP E INJECTION, METHYLPREDNISOLONE SODIUM SUCCINATE, UP TO 125 MG Ordered: 29-Oct-2013 Pending Kermit DO, Tiera INJECTION, TRIAMCINOLONE ACETONIDE, NOT OTHERWISE SPECIFIED, 10 MG Ordered: 25-Dec-2010 Pending Minerva Vergara MD, MD, Dana M INJECTION, TRIAMCINOLONE ACETONIDE, NOT OTHERWISE SPECIFIED, 10 MG Ordered: 25-Dec-2010 Pending Minerva Vergara MD, MD, Dana M INJECTION, TRIAMCINOLONE ACETONIDE, NOT OTHERWISE SPECIFIED, 10 MG Ordered: 25-Dec-2010 Pending Clary TIRADO, Minerav Vergara MD, Minerva Painting INJECTION, TRIAMCINOLONE ACETONIDE, NOT OTHERWISE SPECIFIED, 10 MG Ordered: 25-Dec-2010 Pending Clary TIRADO, Minerva Vergara MD, Minerva Painting Instructions Name Dates Details Encounter for Medicare annual wellness exam : How to access health information online Indication: Encounter for Medicare annual wellness exam Encounter for Medicare annual wellness exam : How to access health information online - Detail Indication: Encounter for Medicare annual wellness exam Encounter for Medicare annual wellness exam : Patient Instructions Indication: Encounter for Medicare annual wellness exam BMI 27.0-27.9,adult : How to access health information online Indication: BMI 27.0-27.9,adult BMI 27.0-27.9,adult : How to access health information online - Detail Indication: BMI 27.0-27.9,adult BMI 27.0-27.9,adult : Patient Instructions Indication: BMI 27.0-27.9,adult BMI 27.0-27.9,adult : How to access health information online Indication: BMI 27.0-27.9,adult BMI 27.0-27.9,adult : How to access health information online - Detail Indication: BMI 27.0-27.9,adult BMI 27.0-27.9,adult : Patient Instructions Indication: BMI 27.0-27.9,adult Neoplasm of uncertain behavior of skin : How to access health information online Indication: Neoplasm of uncertain behavior of skin Neoplasm of uncertain behavior of skin : How to access health information online - Detail Indication: Neoplasm of uncertain behavior of skin Neoplasm of uncertain behavior of skin : Patient Instructions Indication: Neoplasm of uncertain behavior of skin DVT, bilateral lower limbs : How to access health information online Indication: DVT, bilateral lower limbs DVT, bilateral lower limbs : How to access health information online - Detail Indication: DVT, bilateral lower limbs DVT, bilateral lower limbs : Patient Instructions Indication: DVT, bilateral lower limbs Encounter for Medicare annual wellness exam : How to access health information online Indication: Encounter for Medicare annual wellness exam Encounter for Medicare annual wellness exam : How to access health information online - Detail Indication: Encounter for Medicare annual wellness exam Encounter for Medicare annual wellness exam : Patient Instructions Indication: Encounter for Medicare annual wellness exam BMI 26.0-26.9,adult : How to access health information online Indication: BMI 26.0-26.9,adult BMI 26.0-26.9,adult : How to access health information online - Detail Indication: BMI 26.0-26.9,adult BMI 26.0-26.9,adult : Patient Instructions Indication: BMI 26.0-26.9,adult Iliac DVT (deep venous thrombosis) : How to access health information online Indication: Iliac DVT (deep venous thrombosis) Iliac DVT (deep venous thrombosis) : How to access health information online - Detail Indication: Iliac DVT (deep venous thrombosis) Iliac DVT (deep venous thrombosis) : Patient Instructions Indication: Iliac DVT (deep venous thrombosis) BMI 28.0-28.9,adult : How to access health information online Indication: BMI 28.0-28.9,adult BMI 28.0-28.9,adult : How to access health information online - Detail Indication: BMI 28.0-28.9,adult BMI 28.0-28.9,adult : Patient Instructions Indication: BMI 28.0-28.9,adult Left leg swelling : How to access health information online Indication: Left leg swelling Left leg swelling : How to access health information online - Detail Indication: Left leg swelling Left leg swelling : Patient Instructions Indication: Left leg swelling BMI 27.0-27.9,adult : How to access health information online Indication: BMI 27.0-27.9,adult BMI 27.0-27.9,adult : How to access health information online - Detail Indication: BMI 27.0-27.9,adult BMI 27.0-27.9,adult : Patient Instructions Indication: BMI 27.0-27.9,adult Hospital discharge follow-up : How to access health information online Indication: Hospital discharge follow-up Hospital discharge follow-up : How to access health information online - Detail Indication: Hospital discharge follow-up Hospital discharge follow-up : Patient Instructions Indication: Hospital discharge follow-up BMI 26.0-26.9,adult : How to access health information online Indication: BMI 26.0-26.9,adult BMI 26.0-26.9,adult : How to access health information online - Detail Indication: BMI 26.0-26.9,adult BMI 26.0-26.9,adult : Patient Instructions Indication: BMI 26.0-26.9,adult Neoplasm of uncertain behavior of skin : How to access health information online Indication: Neoplasm of uncertain behavior of skin Neoplasm of uncertain behavior of skin : How to access health information online - Detail Indication: Neoplasm of uncertain behavior of skin Neoplasm of uncertain behavior of skin : Patient Instructions Indication: Neoplasm of uncertain behavior of skin BMI 26.0-26.9,adult : How to access health information online Indication: BMI 26.0-26.9,adult BMI 26.0-26.9,adult : How to access health information online - Detail Indication: BMI 26.0-26.9,adult BMI 26.0-26.9,adult : Patient Instructions Indication: BMI 26.0-26.9,adult BMI 28.0-28.9,adult : How to access health information online Indication: BMI 28.0-28.9,adult BMI 28.0-28.9,adult : How to access health information online - Detail Indication: BMI 28.0-28.9,adult BMI 28.0-28.9,adult : Patient Instructions Indication: BMI 28.0-28.9,adult BMI 29.0-29.9,adult : How to access health information online Indication: BMI 29.0-29.9,adult BMI 29.0-29.9,adult : How to access health information online - Detail Indication: BMI 29.0-29.9,adult BMI 29.0-29.9,adult : Patient Instructions Indication: BMI 29.0-29.9,adult BMI 29.0-29.9,adult : How to access health information online Indication: BMI 29.0-29.9,adult BMI 29.0-29.9,adult : How to access health information online - Detail Indication: BMI 29.0-29.9,adult BMI 29.0-29.9,adult : Patient Instructions Indication: BMI 29.0-29.9,adult Abdominal pain, acute : How to access health information online Indication: Abdominal pain, acute Abdominal pain, acute : How to access health information online - Detail Indication: Abdominal pain, acute Abdominal pain, acute : Patient Instructions Indication: Abdominal pain, acute Abdominal pain, acute, generalized : How to access health information online Indication: Abdominal pain, acute, generalized Abdominal pain, acute, generalized : How to access health information online - Detail Indication: Abdominal pain, acute, generalized Abdominal pain, acute, generalized : Patient Instructions Indication: Abdominal pain, acute, generalized Other constipation : Patient Instructions Indication: Other constipation Cough : How to access health information online Indication: Cough Cough : How to access health information online - Detail Indication: Cough Cough : Patient Instructions Indication: Cough Abdominal pain, acute : How to access health information online Indication: Abdominal pain, acute Abdominal pain, acute : How to access health information online - Detail Indication: Abdominal pain, acute Abdominal pain, acute : Patient Instructions Indication: Abdominal pain, acute Seborrheic keratosis : How to access health information online Indication: Seborrheic keratosis Seborrheic keratosis : How to access health information online - Detail Indication: Seborrheic keratosis Seborrheic keratosis : Patient Instructions Indication: Seborrheic keratosis Encounter for Medicare annual wellness exam : How to access health information online Indication: Encounter for Medicare annual wellness exam Encounter for Medicare annual wellness exam : How to access health information online - Detail Indication: Encounter for Medicare annual wellness exam Encounter for Medicare annual wellness exam : Patient Instructions Indication: Encounter for Medicare annual wellness exam Urinary frequency : Patient Instructions Indication: Urinary frequency Cough : How to access health information online Indication: Cough Cough : Patient Instructions Indication: Cough Cough : How to access health information online Indication: Cough Cough : How to access health information online - Detail Indication: Cough Cough : Patient Instructions Indication: Cough Cough : How to access health information online Indication: Cough Cough : How to access health information online - Detail Indication: Cough Cough : Patient Instructions Indication: Cough Upper respiratory tract infection, unspecified type : How to access health information online Indication: Upper respiratory tract infection, unspecified type Upper respiratory tract infection, unspecified type : How to access health information online - Detail Indication: Upper respiratory tract infection, unspecified type Upper respiratory tract infection, unspecified type : Patient Instructions Indication: Upper respiratory tract infection, unspecified type Abnormal cortisol level : How to access health information online Indication: Abnormal cortisol level Abnormal cortisol level : How to access health information online - Detail Indication: Abnormal cortisol level Abnormal cortisol level : Patient Instructions Indication: Abnormal cortisol level Myalgia : How to access health information online Indication: Myalgia Myalgia : How to access health information online - Detail Indication: Myalgia Myalgia : Patient Instructions Indication: Myalgia Other constipation : Patient Instructions Indication: Other constipation Abdominal pain, acute : How to access health information online Indication: Abdominal pain, acute Abdominal pain, acute : How to access health information online - Detail Indication: Abdominal pain, acute Abdominal pain, acute : Patient Instructions Indication: Abdominal pain, acute Abdominal pain, acute : How to access health information online Indication: Abdominal pain, acute Abdominal pain, acute : How to access health information online - Detail Indication: Abdominal pain, acute Abdominal pain, acute : Patient Instructions Indication: Abdominal pain, acute Fatigue : How to access health information online Indication: Fatigue Fatigue : How to access health information online - Detail Indication: Fatigue Fatigue : Patient Instructions Indication: Fatigue Actinic keratosis : How to access health information online Indication: Actinic keratosis Actinic keratosis : How to access health information online - Detail Indication: Actinic keratosis Actinic keratosis : Patient Instructions Indication: Actinic keratosis Mitral valve disorder : How to access health information online Indication: Mitral valve disorder Mitral valve disorder : How to access health information online - Detail Indication: Mitral valve disorder Mitral valve disorder : Patient Instructions Indication: Mitral valve disorder Hospital discharge follow-up : Patient Instructions Indication: Hospital discharge follow-up Cough : How to access health information online Indication: Cough Cough : How to access health information online - Detail Indication: Cough Cough : Patient Instructions Indication: Cough Spinal stenosis of lumbar region : How to access health information online Indication: Spinal stenosis of lumbar region Spinal stenosis of lumbar region : How to access health information online - Detail Indication: Spinal stenosis of lumbar region Spinal stenosis of lumbar region : Patient Instructions Indication: Spinal stenosis of lumbar region PVT (paroxysmal ventricular tachycardia) : How to access health information online Indication: PVT (paroxysmal ventricular tachycardia) PVT (paroxysmal ventricular tachycardia) : How to access health information online - Detail Indication: PVT (paroxysmal ventricular tachycardia) PVT (paroxysmal ventricular tachycardia) : Patient Instructions Indication: PVT (paroxysmal ventricular tachycardia) Limb pain : How to access health information online Indication: Limb pain Limb pain : How to access health information online - Detail Indication: Limb pain Limb pain : Patient Instructions Indication: Limb pain Dysuria (Renamed from Difficult or painful urination) : How to access health information online Indication: Dysuria (Renamed from Difficult or painful urination) Dysuria (Renamed from Difficult or painful urination) : How to access health information online - Detail Indication: Dysuria (Renamed from Difficult or painful urination) Dysuria (Renamed from Difficult or painful urination) : Patient Instructions Indication: Dysuria (Renamed from Difficult or painful urination) Chronic fatigue : How to access health information online Indication: Chronic fatigue Chronic fatigue : How to access health information online - Detail Indication: Chronic fatigue Chronic fatigue : Patient Instructions Indication: Chronic fatigue Other constipation : Patient Instructions Indication: Other constipation Rash : How to access health information online Indication: Rash Rash : How to access health information online - Detail Indication: Rash Rash : Patient Instructions Indication: Rash Bronchitis : Patient Instructions Indication: Bronchitis Bronchitis : Patient Instructions Indication: Bronchitis Rib pain on right side : Patient Instructions Indication: Rib pain on right side Depression : Patient Instructions Indication: Depression Hypothyroidism : Patient Instructions Indication: Hypothyroidism Allergic rhinitis : Patient Instructions Indication: Allergic rhinitis Gastroenteritis : Patient Instructions Indication: Gastroenteritis Over weight : Patient Instructions Indication: Over weight Weight Gain : Patient Instructions Indication: Weight Gain Depression : Patient Instructions Indication: Depression Encounters Office Visit On: 01-Jun-2018 13:06 Encounter Reason: InjectionsEncounter Diagnosis: Need for prophylactic vaccination and inoculation against influenza (Renamed from Need for immunization against influenza) End: 02-Jun-2018 8:45 [facility] Office Visit On: 04-May-2018 10:48 Encounter Reason: Annual Medicare Exam - The patient had reviewed and updated the family history, medication/s, past medical history and social history. No ??the patient did not have a mini mental status exam done today. End: 04-May-2018 11:29 The activities of daily living the patient needs help with are none. The patient has driven in past 6 months, has a medalert necklace or bracelet, put area rugs through house and put handrails in bathr oom. The patient does have durable power of ip technology transactions attorney and living will. The patient has noticed nothing from the geriatic depression scale. Other providers contributing to the patient's care are speech instructor and other: (Dr. [facility]). Encounter Diagnosis: BMI 27.0-27.9,adult, Encounter for Medicare annual wellness exam, Current nonsmoker (Renamed from Current non-smoker), Memory impairment, PVT (paroxysmal ventricular tachycardia), Mitral valve disorder, Menopausal osteoporosis, Hyperlipemia, Renal insufficiency (Renamed from Renal function impairment), Spinal stenosis of lumbar region, Hypothyroidism, Sleep disorder, Fatigue, Vitamin D deficiency, History of stroke, Presence of IVC filter, Cardiomyopathy, Emphysema, interstitial, Osteoarthritis, unspecified osteoarthritis type, unspecified site, Hip osteoarthritis, Coronary artery disease, Right shoulder pain, H/O thromboembolism of vein, Elevated high sensitivity C-reactive protein, Abnormal cortisol level, Hypokalemia, Adrenal insufficiency, Balance disorder, Constipation, History of CHF (congestive heart failure), Allergic rhinitis, Hearing loss, bilateral, Polyp of colon, adenomatous, Depression, URMILA on CPAP, Pneumonia, bacterial, BMI 26.0-26.9,adult, Abnormal glucose level, Abnormal laboratory test, Inflamed seborrheic keratosis (702.11) [facility] Office Visit On: 03-Mar-2018 11:27 Encounter Reason: Follow up acute care visit - The patient feeling better since last seen and improving. Patient has been compliant with instructions. Current medication use: no side effects and compliant with dosing reg End: 03-Mar-2018 12:43 imen. Patient sleeps 7 hours per night. Impact of disease: emotional impact-mild. Nutrition: balanced diet and supplemental vitamins. The medical issues the patient is following up for include other (cough).Encounter Diagnosis: BMI 27.0-27.9,adult, Current nonsmoker (Renamed from Current non-smoker), Presence of IVC filter, Abnormal cortisol level, Cardiomyopathy, Vitamin D deficiency, History of stroke, Hip osteoarthritis, Coronary artery disease, Emphysema, interstitial, Osteoarthritis, unspecified osteoarthritis type, unspecified site, Fatigue, Balance disorder, Menopausal osteoporosis, Hyperlipemia, PVT (paroxysmal ventricular tachycardia), Mitral valve disorder, Hypothyroidism, Sleep disorder, Renal insufficiency (Renamed from Renal function impairment), Spinal stenosis of lumbar region, Memory impairment, Allergic rhinitis, History of CHF (congestive heart failure), Constipation, Hearing loss, bilateral, URMILA on CPAP, Depression, Polyp of colon, adenomatous, Abnormal glucose level, Elevated high sensitivity C- reactive protein, Hypokalemia, H/O thromboembolism of vein, Adrenal insufficiency, Weakness, Right shoulder pain, Pneumonia, bacterial, BMI 26.0-26.9,adult, Abnormal laboratory test, Left leg swelling, Actinic keratosis [facility] Office Visit On: 22-Jan-2018 11:05 Encounter Reason: Follow up acute care visit - The patient does not feel well.Encounter Diagnosis: BMI 27.0-27.9,adult, Current nonsmoker (Renamed from Current non- smoker), Cough, History of CHF (congestive heart failure) End: 22-Jan-2018 11:54 [facility] Phone Encounter On: 09-Jan-2018 12:57 Encounter Diagnosis: Cough End: 09-Jan-2018 12:59 [facility] Office Visit On: 08-Jan-2018 8:01 Encounter Diagnosis: Cough, Acute systolic congestive heart failure, Adrenal insufficiency End: 08-Jan-2018 9:07 [facility] Office Visit On: 31-Dec-2017 8:20 Encounter Reason: Skin LesionsEncounter Diagnosis: Current nonsmoker (Renamed from Current non-smoker), Neoplasm of uncertain behavior of skin End: 31-Dec-2017 9:02 [facility] Office Visit On: 11-Nov-2017 11:32 Encounter Reason: Follow up tests - Diagnostic tests include other (blood work) and ultrasound (doppler).Encounter Diagnosis: Current nonsmoker (Renamed from Current non-smoker), BMI 26.0-26.9,adult, DVT, bilateral lower limbs, Adrenal insufficiency End: 11-Nov-2017 12:05 , Iliac DVT (deep venous thrombosis), Elevated high sensitivity C-reactive protein, H/O thromboembolism of vein, Abnormal laboratory test, Hypokalemia [facility] Phone Encounter On: 25-Sep-2017 7:57 [facility] End: 25-Sep-2017 7:59 Office Visit On: 23-Sep-2017 7:35 Encounter Diagnosis: Encounter for Medicare annual wellness exam, BMI 27.0-27.9,adult, Fatigue, Allergic rhinitis, Hip osteoarthritis, Coronary artery disease, Memory impairment, Depression, Spinal stenosis of lumbar region, End: 23-Sep-2017 12:29 Osteoarthritis, unspecified osteoarthritis type, unspecified site, H/O thromboembolism of vein, Menopausal osteoporosis, Hyperlipemia, Hearing loss, bilateral, Hypothyroidism, PVT (paroxysmal ventricular tachycardia), Mitral valve disorder, Balance disorder, DVT, bilateral lower limbs, Emphysema, interstitial, Renal insufficiency (Renamed from Renal function impairment), Acute systolic congestive heart failure, Abnormal RBC indices, Constipation, Current nonsmoker (Renamed from Current non-smoker), Adrenal insufficiency, Sleep disorder, Abnormal cortisol level, Abnormal glucose level, Presence of IVC filter, Vitamin D deficiency, History of stroke, Polyp of colon, adenomatous, Iliac DVT (deep venous thrombosis), Cardiomyopathy, URMILA on CPAP, History of CHF (congestive heart failure), Encounter for screening mammogram for malignant neoplasm of breast, Elevated high sensitivity C-reactive protein, Abnormal laboratory test [facility] Office Visit On: 27-Aug-2017 11:14 Encounter Reason: Cough - Symptoms include cough and runny nose. Note for Cough: started 1-8. cough and cough til vomit. her back down lasix because weight drop quick and really low and pt felt dry. she was End: 27-Aug-2017 11:50 more lighheaded and now weight been stable now. cough up friday green sputum. no fever or muscle aches. use robitussin adn theraflu. gone through over bottle. use aerosols. she cough more with it. mucous not thick.Encounter Diagnosis: BMI 26.0-26.9,adult, Current nonsmoker (Renamed from Current non-smoker), Hypokalemia, Bronchitis, Inflamed seborrheic keratosis (702.11) [facility] Phone Encounter On: 07-Aug-2017 17:38 Encounter Diagnosis: Hypokalemia End: 07-Aug-2017 17:39 [facility] Office Visit On: 07-Aug-2017 10:07 Encounter Reason: Follow up acute care visit - The patient feels the same. Patient has been compliant with instructions. Current medication use: compliant with dosing regimen. Patient sleeps 7 hours per night. Impact of End: 07-Aug-2017 11:05 disease: emotional impact-moderate. Nutrition: balanced diet and supplemental vitamins. The medical issues the patient is following up for include other (DVT leg pain).Encounter Diagnosis: Iliac DVT (deep venous thrombosis), Current nonsmoker (Renamed from Current non-smoker), BMI 29.0-29.9,adult, Presence of IVC filter, Left leg swelling, Cardiomyopathy, Encounter for Medicare annual wellness exam [facility] Office Visit On: 31-Jul-2017 7:57 Encounter Reason: Follow up acute care visit - The patient worsening. Patient has been compliant with instructions. Current medication use: no side effects and compliant with dosing regimen. Patient sleeps 7 hours per ni End: 31-Jul-2017 9:36 ght. Impact of disease: emotional impact-moderate. Nutrition: balanced diet and supplemental vitamins. The medical issues the patient is following up for include other (DVT leg pain).Encounter Diagnosis: BMI 28.0-28.9,adult, DVT, bilateral lower limbs, Current nonsmoker (Renamed from Current non-smoker), Iliac DVT (deep venous thrombosis), Left leg swelling, History of stroke, Presence of IVC filter [facility] Office Visit On: 28-Jul-2017 8:20 Encounter Diagnosis: Left leg swelling, BMI 26.0-26.9,adult, Limb pain (729.5), Fall, accidental, DVT, bilateral lower limbs, Presence of IVC filter, History of stroke, Iliac DVT (deep venous thrombosis) End: 29-Jul-2017 9:46 [facility] Lab Order On: 21-Jul-2017 11:44 Encounter Diagnosis: Acute systolic congestive heart failure End: 21-Jul-2017 11:48 [facility] Office Visit On: 06-May-2017 10:32 Encounter Reason: Follow up acute care visit - The patient feeling better since last seen and has decreased energy level (up and down).Encounter Diagnosis: Current nonsmoker (Renamed from Current non-smoker), BMI 27.0-27.9,adult, End: 06-May-2017 11:33 Hearing loss, bilateral, PVT (paroxysmal ventricular tachycardia), Prediabetes, Hyperlipemia, Acute systolic congestive heart failure, Hypothyroidism, Osteoarthritis, unspecified osteoarthritis type, unspecified site, Menopausal osteoporosis, Coronary artery disease, Allergic rhinitis, Presence of IVC filter, History of stroke, Depression, Memory impairment, Hip osteoarthritis, H/O thromboembolism of vein, Polyp of colon, adenomatous, Fatigue, Abnormal RBC indices, Vitamin D deficiency, Constipation, Adrenal insufficiency, Renal insufficiency (Renamed from Renal function impairment), Weakness, Pneumonia, bacterial, DVT, bilateral lower limbs, Sleep disorder, Emphysema, interstitial, Spinal stenosis of lumbar region, Right shoulder pain, Mitral valve disorder, Balance disorder, Abnormal cortisol level, Cardiomyopathy, BMI 26.0-26.9,adult [facility] Lab Order On: 07-Apr-2017 14:15 Encounter Diagnosis: Renal insufficiency (Renamed from Renal function impairment) End: 07-Apr-2017 14:16 [facility] Office Visit On: 04-Apr-2017 11:52 Encounter Reason: Follow up hospital - Reason for ER visit: pneumonia. The patient feels well with minor complaints and has decreased energy level. Patient has been compliant with instructions. Current medication use: no End: 04-Apr-2017 12:49 side effects and compliant with dosing regimen. Patient sleeps 7 hours per night. Impact of disease: emotional impact-mild. Nutrition: balanced diet and supplemental vitamins.Encounter Diagnosis: BMI 27.0-27.9,adult, Hospital discharge follow-up, Current nonsmoker (Renamed from Current non-smoker), Pneumonia, bacterial, Weakness, Adrenal insufficiency [facility] Office Visit On: 03-Mar-2017 10:24 Encounter Reason: Follow up acute care visit - The patient feeling better since last seen and improving. Patient has been compliant with instructions. Current medication use: no side effects, compliant with dosing regime End: 03-Mar-2017 11:12 n and considered effective by patient. Patient sleeps 7 hours per night. Impact of disease: emotional impact-mild. Nutrition: balanced diet and supplemental vitamins. The medical issues the patient is f ollowing up for include other (lower extrem. edema, constipation).Encounter Diagnosis: BMI 26.0-26.9,adult, Current nonsmoker (Renamed from Current non-smoker), Hyperlipemia, Hypothyroidism, Coronary artery disease, Prediabetes, Osteoarthritis, unspecified osteoarthritis type, unspecified site, Menopausal osteoporosis, Hearing loss, bilateral, PVT (paroxysmal ventricular tachycardia), Hip osteoarthritis, Allergic rhinitis, Spinal stenosis of lumbar region, Renal insufficiency (Renamed from Renal function impairment), History of stroke, Depression, Polyp of colon, adenomatous, Chronic fatigue, Memory impairment, Sleep disorder, Emphysema, interstitial, Presence of IVC filter, H/O thromboembolism of vein , Acute systolic congestive heart failure, Balance disorder, DVT, bilateral lower limbs, Cardiomyopathy, Mitral valve disorder, Fatigue, Abnormal RBC indices, Vitamin D deficiency, Constipation, Abnormal cortisol level, Right shoulder pain, Seborrheic keratosis, Edema extremities, BMI 29.0-29.9,adult, Shortness of breath at rest [facility] Office Visit On: 04-Feb-2017 9:45 Encounter Diagnosis: BMI 26.0-26.9,adult, Current nonsmoker (Renamed from Current non-smoker), Neoplasm of uncertain behavior of skin End: 04-Feb-2017 13:40 [facility] Office Visit On: 28-Jan-2017 10:15 Encounter Reason: Follow up acute care visit - The patient feeling better since last seen and improving. Patient has been compliant with instructions. Current medication use: no side effects and compliant with dosing reg End: 28-Jan-2017 11:02 imen. Patient sleeps 7 hours per night. Impact of disease: emotional impact-mild. Nutrition: balanced diet and supplemental vitamins. The medical issues the patient is following up for include other (abd. cramping ).Encounter Diagnosis: BMI 26.0-26.9,adult, Current nonsmoker (Renamed from Current non-smoker), Edema extremities, Renal insufficiency (Renamed from Renal function impairment), History of stroke, Allergic rhinitis, Spinal stenosis of lumbar region, H/O thromboembolism of vein, Abnormal cortisol level, Depression, Vitamin D deficiency, Memory impairment, Sleep disorder, Over weight, Polyp of colon, adenomatous, Chronic fatigue, Coronary artery disease, Myalgia, Prediabetes, Gait abnormality, Hyperlipemia, Mitral valve disorder, Hypothyroidism, Constipation, Osteoarthritis, unspecified osteoarthritis type, unspecified site, Presence of IVC filter, PVT (paroxysmal ventricular tachycardia), Emphysema, interstitial, DVT, bilateral lower limbs, Hip osteoarthritis, Balance disorder, Menopausal osteoporosis, Cardiomyopathy, Hearing loss, bilateral, Abnormal RBC indices, BMI 29.0- 29.9,adult, Right shoulder pain, Seborrheic keratosis, BMI 27.0-27.9,adult, Shortness of breath at rest, BMI 28.0-28.9,adult, Fatigue, UTI symptoms, Acute systolic congestive heart failure [facility] Phone Encounter On: 17-Jan-2017 11:08 [facility] End: 17-Jan-2017 11:10 Phone Encounter On: 03-Jan-2017 10:26 Encounter Diagnosis: Abdominal pain, acute End: 03-Jan-2017 10:37 [facility] Office Visit On: 03-Jan-2017 8:05 Encounter Diagnosis: BMI 28.0-28.9,adult, Current nonsmoker (Renamed from Current non-smoker), Abdominal pain, acute, Hypothyroidism, Emphysema, interstitial, PVT (paroxysmal ventricular tachycardia), Shortness of breath at rest, End: 03-Jan-2017 8:35 Presence of IVC filter [facility] Office Visit On: 16-Dec-2016 12:51 Encounter Reason: Follow up acute care visit - The patient feels the same. Patient has been compliant with instructions. Current medication use: no side effects and compliant with dosing regimen. Patient sleeps 7 hours p End: 16-Dec-2016 15:07 er night. Impact of disease: emotional impact-mild. Nutrition: balanced diet and supplemental vitamins. The medical issues the patient is following up for include other (bloating, cramping and swelling ).Encounter Diagnosis: Hip osteoarthritis, Balance disorder, Hearing loss, bilateral, Abnormal RBC indices, PVT (paroxysmal ventricular tachycardia), Depression, Abnormal cortisol level, Seborrheic keratosis, Menopausal osteoporosis, Mitral valve disorder, Hyperlipemia, Prediabetes, Chronic fatigue, Myalgia, Osteoarthritis, unspecified osteoarthritis type, unspecified site, Over weight, Coronary artery disease, Polyp of colon, adenomatous, Fatigue, Gait abnormality, BMI 29.0-29.9,adult, Current nonsmoker (Renamed from Current non-smoker), Shortness of breath at rest, Other constipation, Constipation, Acute cystitis without hematuria, Cardiomyopathy, DVT, bilateral lower limbs, H/O thromboembolism of vein, History of stroke, Memory impairment, Vitamin D deficiency, Renal insufficiency (Renamed from Renal function impairment), Nonsmoker, Sleep disorder, Spinal stenosis of lumbar region, Allergic rhinitis, Right shoulder pain, Hypothyroidism, BMI 27.0-27.9,adult, UTI symptoms, Cough [facility] Office Visit On: 09-Dec-2016 13:24 Encounter Reason: Follow up acute care visit - The patient feels the same. Patient has been compliant with instructions. Current medication use: no side effects, compliant with dosing regimen and considered effective by End: 10-Dec-2016 7:56 patient. Patient sleeps 7 hours per night. Impact of disease: emotional impact-mild. Nutrition: balanced diet and supplemental vitamins. The medical issues the patient is following up for include other (abd. cramping, bloating,constipation ). Encounter Diagnosis: BMI 29.0-29.9,adult, Current nonsmoker (Renamed from Current non-smoker), Constipation, DVT, bilateral lower limbs, H/O thromboembolism of vein, Acute cystitis without hematuria, Abdominal pain, acute, Cardiomyopathy [facility] Office Visit On: 04-Dec-2016 12:04 Encounter Reason: Deep Vein Thrombosis - Symptoms include leg pain, redness and warmth, while symptoms do not include calf tenderness or swelling. Symptoms are located in the left calf, left thigh and right thigh. The pa End: 05-Dec-2016 22:19 letitia describes the pain as sharp and aching. Onset was sudden week(s) ago. Onset followed prolonged sitting and recent travel. The symptoms occur constantly. Associated symptoms do not include cough, d yspnea or fever. Current treatment includes warfarin. Note for Deep vein thrombosis: has had clot with PE and has vena cava filter- saw cebul he doesnt want to take it out he is checking her gb- no fa lls - no hx of any bleeding problems has hadhemmies that it colonsoopcy last year- cancer screening up to date- drove to [place] few weeks ago- no family hx of clotsEncounter Diagnosis: Current nonsmoker (Renamed from Current non-smoker), BMI 29.0-29.9,adult, DVT, bilateral lower limbs, Shortness of breath at rest, Other constipation [facility] Office Visit On: 02-Dec-2016 8:14 Encounter Reason: Follow up acute care visit - The patient does not feel well and worsening. Patient has been compliant with instructions. Current medication use: no side effects, compliant with dosing regimen and consid End: 02-Dec-2016 9:20 ered effective by patient. Patient sleeps 7 hours per night. Impact of disease: emotional impact-moderate. Nutrition: balanced diet and supplemental vitamins. The medical issues the patient is following up for include other (abd. pain ). Encounter Diagnosis: BMI 29.0-29.9,adult, Current nonsmoker (Renamed from Current non-smoker), Abdominal pain, acute, H/O thromboembolism of vein [facility] Office Visit On: 25-Nov-2016 12:41 Encounter Reason: Follow up acute care visit - The patient feels the same and has decreased energy level. Patient has been compliant with instructions. Current medication use: compliant with dosing regimen. Patient sleep End: 25-Nov-2016 13:17 s 7 hours per night. Impact of disease: emotional impact-moderate. Nutrition: balanced diet and supplemental vitamins. The medical issues the patient is following up for include other (bloating, cramping and abd. pain ).Encounter Diagnosis: Current nonsmoker (Renamed from Current non-smoker), BMI 29.0-29.9,adult, Abdominal pain, acute, generalized, Cardiomyopathy, Constipation [facility] Office Visit On: 18-Nov-2016 11:31 Encounter Reason: Follow up acute care visit - The patient feels the same. Patient has been compliant with instructions. Current medication use: no side effects, compliant with dosing regimen and not considered effective End: 18-Nov-2016 12:19 by patient. Patient sleeps 6 hours per night. Impact of disease: emotional impact- moderate. Nutrition: balanced diet and supplemental vitamins. The medical issues the patient is following up for include other (, abd. cramping ).Encounter Diagnosis: BMI 29.0-29.9,adult, Nonsmoker, Constipation, Cough [facility] Office Visit On: 05-Nov-2016 10:13 Encounter Reason: Follow up acute care visit - The patient feels the same. Patient has been compliant with instructions. Current medication use: no side effects, compliant with dosing regimen and not considered effective End: 05-Nov-2016 11:07 by patient. Patient sleeps 6 hours per night. Impact of disease: emotional impact- moderate. Nutrition: balanced diet and supplemental vitamins. The medical issues the patient is following up for include other (cough, abd. cramping ). Encounter Diagnosis: Constipation, Cough, Current nonsmoker (Renamed from Current non-smoker), BMI 29.0-29.9,adult, Acute cystitis without hematuria, Allergic rhinitis, Abdominal pain, acute, Encounter for Medicare annual wellness exam, Spinal stenosis of lumbar region, Right shoulder pain [facility] Phone Encounter On: 31-Oct-2016 11:44 Encounter Diagnosis: UTI symptoms End: 31-Oct-2016 11:46 [facility] Office Visit On: 31-Oct-2016 8:39 Encounter Diagnosis: Abdominal pain, acute, Current nonsmoker (Renamed from Current non-smoker), BMI 29.0-29.9,adult, Constipation, Cough, Mitral valve disorder, Spinal stenosis of lumbar region End: 31-Oct-2016 9:31 [facility] Office Visit On: 22-Aug-2016 10:50 Encounter Diagnosis: Seborrheic keratosis, Current nonsmoker (Renamed from Current non-smoker), Neoplasm of uncertain behavior of skin End: 22-Aug-2016 15:48 [facility] Visit On: 29-Jul-2016 8:02 Encounter Diagnosis: BMI 27.0-27.9,adult, Encounter for Medicare annual wellness exam, Current nonsmoker (Renamed from Current non-smoker), Encounter for screening mammogram for malignant neoplasm of breast, Menopausal osteoporosis, Hyperlipemia, End: 29-Jul-2016 16:45 Sleep disorder, Cardiomyopathy, Constipation, Coronary artery disease, Renal insufficiency (Renamed from Renal function impairment), Myalgia, Actinic keratosis, Over weight, Hypoxia, Chronic fatigue, Fatigue, Neutrophilic leukocytosis, History of stroke, H/O thromboembolism of vein, Osteoarthritis, unspecified osteoarthritis type, unspecified site, Spinal stenosis of lumbar region, Complete tear of right rotator cuff, Mitral valve disorder, Polyp of colon, adenomatous, Right shoulder pain, Abnormal cortisol level, Seborrheic keratosis, Hypothyroidism, Hip osteoarthritis, Gait abnormality, Depression, Allergic rhinitis, Cardiomyopathy in other diseases classified elsewhere, PVT (paroxysmal ventricular tachycardia), Cough, ORTHOSTATICS BP/P, Urinary frequency, Abdominal pain, acute, Memory impairment, Prediabetes, Vitamin D deficiency, Abnormal RBC indices, Hearing loss, bilateral, Balance disorder [facility] Office Visit On: 09-May-2016 8:33 Encounter Reason: Urinary Frequency - Symptoms include urinary frequency and dysuria. Onset was gradual. The patient describes this as worsening. Presenting symptoms included urinary frequency and dysuria., End: 09-May-2016 9:25 [ADDITIONAL REASON] Skin Problems - The skin problems have been occurring in a persistent pattern. The problem is characterized as other (skin tags). Lesions are described as crusty and other (raised). Encounter Diagnosis: Urinary frequency, Need for prophylactic vaccination and inoculation against influenza (Renamed from Need for immunization against influenza), Seborrheic keratosis, Abnormal cortisol level, Right shoulder pain [facility] Office Visit On: 21-Mar-2016 12:50 Encounter Reason: Follow up tests - Date:.Encounter Diagnosis: Cough, Right shoulder pain, Inflamed seborrheic keratosis (702.11) End: 21-Mar-2016 13:41 [facility] Office Visit On: 01-Feb-2016 9:05 Encounter Reason: Follow up acute care visit - The patient feeling better since last seen, has decreased energy level and improving. Patient has been compliant with instructions. Current medication use: no side effects a End: 01-Feb-2016 9:46 nd compliant with dosing regimen. Patient sleeps 7 hours per night. Nutrition: balanced diet and supplemental vitamins. The medical issues the patient is following up for include other (cough ).Encounter Diagnosis: Cough, Polyp of colon, adenomatous , Complete tear of right rotator cuff, Over weight, ORTHOSTATICS BP/P [facility] Visit On: 01-Jan-2016 13:19 Encounter Reason: Follow up acute care visit - The patient feeling better since last seen and improving. Patient has been compliant with instructions. Current medication use: no side effects and compliant with dosing reg End: 01-Jan-2016 13:55 imen. Patient sleeps 8 hours per night. Impact of disease: emotional impact-mild. Nutrition: balanced diet and supplemental vitamins. The medical issues the patient is following up for include other (cough ).Encounter Diagnosis: Cough, Current nonsmoker (Renamed from Current non-smoker), Allergic rhinitis, Myalgia, Constipation, Hyperlipemia, Actinic keratosis, Over weight, Renal insufficiency (Renamed from Renal function impairment), Hip osteoarthritis, PVT (paroxysmal ventricular tachycardia), Fatigue, Depression, Coronary artery disease, Gait abnormality, Chronic fatigue, Osteoarthritis, unspecified osteoarthritis type, unspecified site, Spinal stenosis of lumbar region, Abnormal cortisol level, Cardiomyopathy in other diseases classified elsewhere, Right shoulder pain, Neutrophilic leukocytosis, Hypothyroidism, Mitral valve disorder, History of stroke, H/O thromboembolism of vein, Sleep disorder, Hypoxia, Hospital discharge follow-up, Concussion, Cardiomyopathy, Abdominal pain, acute, ORTHOSTATICS BP/P [facility] Visit On: 18-Dec-2015 13:10 Encounter Reason: Follow up acute care visit - The patient feels the same (somewhat better) and has decreased energy level. Patient has been compliant with instructions. Current medication use: no side effects, compliant End: 18-Dec-2015 13:50 with dosing regimen and considered effective by patient.Encounter Diagnosis: Upper respiratory tract infection, unspecified type, CARDIOMYOPATHY IN DISEASES CE (425.8), Right shoulder pain [facility] Office Visit On: 11-Dec-2015 11:51 Encounter Reason: Follow up acute care visit - The patient does not feel well. The medical issues the patient is following up for include URI and other.Encounter Diagnosis: Abnormal cortisol level, Upper respiratory tract infection, unspecified type End: 11-Dec-2015 13:14 , Osteoarthritis, unspecified osteoarthritis type, unspecified site, Spinal stenosis of lumbar region [facility] Visit On: 06-Dec-2015 9:32 Encounter Reason: Flu Like Symptoms - Symptoms include chills, body aches, nasal congestion, runny nose, scratchy throat, dry cough, productive cough, facial pressure, facial pain and headache, while symptoms do not incl End: 07-Dec-2015 9:46 ude fever. Onset was sudden 4 day(s) ago. The symptoms occur constantly. The patient describes this as worsening. Associated symptoms include fatigue and weakness, while associated symptoms do not inclu de ear pain, swollen lymph nodes, wheezing, shortness of breath, nausea, vomiting or diarrhea. The patient is not currently being treated for this problem. Note for Flu like symptoms: coughing fair am ount- clear there- alot of facila pressure didnt take temp at home- not active - not sob-trying to drink fluidsEncounter Diagnosis: Myalgia, Upper respiratory tract infection, unspecified type, Abnormal cortisol level [facility] Visit On: 27-Nov-2015 10:44 Encounter Reason: Follow up acute care visit - The patient feeling better since last seen and improving (still some issues with balance and fatgiue ). Patient has been compliant with instructions. Current medication use: End: 27-Nov-2015 11:48 compliant with dosing regimen. Patient sleeps 7 hours per night. Impact of disease: emotional impact-mild. Nutrition: balanced diet and supplemental vitamins. The medical issues the patient is followin g up for include other (abd. pain, fatigue gait disturbance ).Encounter Diagnosis: Abdominal pain, acute, Spinal stenosis of lumbar region, Constipation, Cardiomyopathy, Neutrophilic leukocytosis [facility] Visit On: 22-Nov-2015 11:21 Encounter Reason: Follow up acute care visit - The patient does not feel well, has decreased energy level and worsening. Patient has been compliant with instructions. Current medication use: no side effects and compliant End: 26-Nov-2015 21:55 with dosing regimen. Patient sleeps 7 hours per night. Nutrition: poor nutrition. The medical issues the patient is following up for include other (abn labs, was in ER for abd pain and dehydration. Pt is currently only able to eat ice chips and sip on gatorade.). Note for Follow up acute care visit: no vomit no nuasea no diarrhea was told to eat tis way by memo because of mild elevation o lipase- b ut no pancreatitis on ct- and ct reviewwed and no cx on urine was sent I checked so will resend - but oalso went off gabapentin we disucssed how this may be issue maybe coming from back as the pain not bother her much when laying more when sitting - she hungry want to eat no feverEncounter Diagnosis: Spinal stenosis of lumbar region, Abdominal pain, acute, Cardiomyopathy [facility] Prescription Refill On: 21-Nov-2015 9:23 Encounter Diagnosis: Coronary artery disease End: 21-Nov-2015 9:25 [facility] Office Visit On: 20-Nov-2015 15:14 Encounter Reason: Follow up ER - Reason for hospitalization abdominal pain. Hospitalization details include: abnormal labs Patient has been compliant with instructions. Current medication use: no side effects and compli End: 20-Nov-2015 16:04 ant with dosing regimen. The patient does not feel well and has decreased energy level. Patient sleeps 7 hours per night. Impact of disease: emotional impact- moderate. Nutrition: balanced diet and suppl emental vitamins. Note for Follow up ER: Went to ER November 12 4- for abdominal painWas taken off of lasix on November 14 and has not been on since.Was on 08/12 tab qod Encounter Diagnosis: Abdominal pain, acute [facility] Visit On: 19-Oct-2015 11:19 Encounter Reason: Follow up for chronic medical issues - The patient feels well with minor complaints, has decreased energy level (Bp is low) and is sleeping well (8 or more). Current medication use: experiencing side ef End: 19-Oct-2015 12:17 fects (seems like she has reddness and swelling, weight gain). Patient sleeps 8 hours per night. Nutrition: balanced diet. blood pressure range :., [ADDITIONAL REASON] Follow up tests - Date: (10/17/15). Encounter Diagnosis: Fatigue, ORTHOSTATICS BP/P , Cardiomyopathy [facility] Office Visit On: 28-Aug-2015 10:23 Encounter Diagnosis: Actinic keratosis, Current nonsmoker (Renamed from Current non-smoker) End: 29-Aug-2015 15:38 [facility] Office Visit On: 24-Aug-2015 10:39 Encounter Reason: Follow up hospital - Reason for ER visit: note: (hypertension ). The patient feels well with minor complaints and has decreased energy level. Patient has been compliant with instructions. Current medica End: 28-Aug-2015 6:47 tion use: compliant with dosing regimen and considered effective by patient. Patient sleeps 8 hours per night. Impact of disease: emotional impact-mild. Nutrition: balanced diet and supplemental vitamins.Encounter Diagnosis: Mitral valve disorder, Current nonsmoker (Renamed from Current non-smoker), Sleep disorder (780.50), Hypothyroidism, PVT (paroxysmal ventricular tachycardia), Depression, Hyperlipemia, Hospital discharge follow-up, Renal insufficiency (Renamed from Renal function impairment), History of stroke, Concussion, Allergic rhinitis, Gait abnormality, Hip osteoarthritis, Hypoxia, Fatigue, Cardiomyopathy, Over weight, H/O thromboembolism of vein, Wart, Constipation, Coronary artery disease, Chronic fatigue, Osteoarthritis, unspecified osteoarthritis type, unspecified site, Spinal stenosis of lumbar region, ORTHOSTATICS BP/P, Abnormal cortisol level [facility] Phone Encounter On: 14-Aug-2015 12:58 Encounter Diagnosis: Unspecified Diagnosis End: 14-Aug-2015 13:04 [facility] Office Visit On: 09-Aug-2015 10:03 Encounter Reason: Syncope - The last clinic visit was 1 week(s) ago.Encounter Diagnosis: Dizziness, Fatigue, ORTHOSTATICS BP/P, Hypoxia End: 09-Aug-2015 11:12 [facility] Visit On: 02-Aug-2015 8:51 Encounter Reason: Transition into care - The patient is transitioning into care from a hospital and a summary of care was reviewed . Note for Transition into care: Pt had hospital stay for syncopal episode on 07-22 to End: 02-Aug-2015 10:01 07-26 , complicated by previous URI on doxycycline, found leukocytosis. and orthostotic hypotension to take synthroid to 88mcg per day not 2 on Friday . Discharged on Augmentin. To follow up with cardio , [ADDITIONAL REASON] Follow up hospital - Reason for ER visit: note: (syncope). The patient does not feel well (weak). Patient has been compliant with instructions. Current medication use: no side effec ts. Patient sleeps 7 hours per night. Impact of disease: impact on recreation-moderate. Nutrition: balanced diet. The hospital results of the other were Encounter Diagnosis: Hospital discharge follow-up, Syncope, Hypothyroidism, Right shoulder pain, Wart [facility] Lab Order On: 17-Jul-2015 17:48 Encounter Diagnosis: Cough End: 17-Jul-2015 17:53 [facility] Phone Encounter On: 14-Jul-2015 9:38 Encounter Diagnosis: Unspecified Diagnosis End: 14-Jul-2015 9:40 [facility] Office Visit On: 14-Jul-2015 8:18 Encounter Reason: Follow up acute care visit - The patient does not feel well and worsening. Patient has been compliant with instructions. Current medication use: no side effects and compliant with dosing regimen. Patien End: 14-Jul-2015 9:09 t sleeps 7 hours per night. Impact of disease: emotional impact-mild. Nutrition: balanced diet and supplemental vitamins. The medical issues the patient is following up for include other (cough ). Note for Follow up acute care visit: visit son and in rain and damp. moist cough not able to get all way up ? color. not alot nasal drainage. no real sore throat tender in lymph nodes. not sleep weel. no t noted fever. feel weak. cough so hard. started 5 days ago.Encounter Diagnosis: Cough, Current nonsmoker (Renamed from Current non-smoker) [facility] Visit On: 14-Jun-2015 11:03 Encounter Reason: Transition into care - The patient is transitioning into care from a hospital and a summary of care was reviewed . Note for Transition into care: Fall onto concrete with concussion syndrome, hasuea nd End: 14-Jun-2015 14:53 vertigo, had scalp laceration with stples, [ADDITIONAL REASON] Follow up hospital - Reason for ER visit: note: (fall/concussion). The patient feels well with minor complaints (dizziness, head shaking, adler, nausea). Patient has been compliant wit h instructions. Current medication use: no side effects. Patient sleeps 7 hours per night. Impact of disease: impact on recreation-mild. Nutrition: balanced diet. The hospital results of the CT scan of brain were Encounter Diagnosis: Fall, accidental , Concussion, Visit for suture removal (V58.32) [facility] Visit On: 06-Jun-2015 11:27 Encounter Reason: Follow up acute care visit - The patient feeling better since last seen and improving. Patient has been compliant with instructions. Current medication use: no side effects, compliant with dosing regime End: 06-Jun-2015 12:10 n and considered effective by patient. 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), Spinal stenosis of lumbar region, OVERWEIGHT (278.02), Shoulder pain, Right shoulder pain, Allergic rhinitis (477.9), Hip osteoarthritis, Renal insufficiency (Renamed from Renal function impairment), Sleep disorder (780.50), Depression, Chronic fatigue, Constipation, Cough, Coronary artery disease, HX, PERSONAL, VENOUS THROMBOSIS/EMBOLISM (V12.51), HYPOTHYROIDISM NOS (244.9), TACHYCARDIA, PAROXYSMAL VENTRICULAR (427.1), Hyperlipidemia NEC/NOS (272.4), Fall, sequela, Headache [facility] Office Visit On: 29-May-2015 10:27 Encounter Reason: Cough - The last clinic visit was 1 week(s) ago. Symptoms include cough, dyspnea, chills, runny nose and pleuritic chest pain. The cough is described as productive. Cough onset was gradual 1 week(s) ago End: 29-May-2015 11:16 . The cough occurs constantly. The episodes last for 7 days. Symptoms are described as worsening. Symptoms are not exacerbated by smoke exposure, pollen exposure, animal exposure, going outside, activit y, lying down, cold temperature or inhaled bronchodilator use. Associated symptoms include postnasal drainage and headache. Current treatment includes decongestants and mucolytics. By report there is go od compliance with treatment. Previous presentation included a cough, a runny nose and pleuritic chest pain. Note for Cough: Cough treated at home with tylenol and benadryl , [ADDITIONAL REASON] Diarrhea - Adult - The last clinic visit was 1 day(s) ago. Symptoms include diarrhea. The stools are described as loose. The symptoms occur intermittently. The episodes occur 1 time (s) a day. This is described as unchanged. Associated symptoms include headache. Encounter Diagnosis: Cough, Diarrhea (787.91) [facility] Office Visit On: 25-Apr-2015 11:42 Encounter Reason: Follow up tests - Date: (04/19/15 CT scan and Lumbar myelogram)., [ADDITIONAL REASON] Follow up acute care visit - The patient feeling better since last seen and impr End: 25-Apr-2015 12:13 oving. Patient has been compliant with instructions. Current medication use: experiencing side effects (nightmares), compliant with dosing regimen and considered effective by patient. Encounter Diagnosis: TACHYCARDIA, PAROXYSMAL VENTRICULAR (427.1), Need for prophylactic vaccination and inoculation against influenza (Renamed from Need for immunization against influenza), Spinal stenosis of lumbar region, Fall, sequela, HX, PERSONAL, VENOUS THROMBOSIS/EMBOLISM (V12.51), Chronic fatigue, HYPOTHYROIDISM NOS (244.9), Hyperlipidemia NEC/NOS (272.4), Headache, Right shoulder pain, Hip osteoarthritis, OVERWEIGHT (278.02), Disequilibrium of Gait(781.2), Shoulder pain, Allergic rhinitis (477.9), Renal insufficiency (Renamed from Renal function impairment), Coronary Artery Disease (414.00), Constipation(564.00), Osteoarthritis- Generalized or Localized, Involving Unspecified Site (715.90), HX, PERSONAL, 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 Symptoms include leg pain, decreased range of motion and difficulty bearing weight. The pain is located in the right anterior upper leg and i End: 11-Apr-2015 12:09 n the right posterior upper leg. Onset was 3 week(s) ago. The patient describes symptoms as worsening. Associated symptoms include hip pain, thigh pain, numbness and tingling. Current treatment includes rest and nonsteroidal anti- inflammatory drugs. , [ADDITIONAL REASON] Follow up ER - Reason for hospitalization note: (leg back). Patient has been compliant with instructions. Current medication use: no side effects, compliant with dosing regimen and considered effective by patient. The patient does not feel well, has decreased energy level and is sleeping poorly. Encounter Diagnosis: Limb pain (729.5), TACHYCARDIA, PAROXYSMAL VENTRICULAR (427.1) [facility] Office Visit On: 27-Mar-2015 14:00 Encounter Reason: Abdominal pain - The onset of the abdominal pain has been gradual and has been occurring in a persistent pattern for 3 weeks. The course has been constant. The abdominal pain is described as a moderate End: 27-Mar-2015 22:18 crampy. The abdominal pain is described as being located in the lower abdomen. The abdominal pain radiates to the back and left upper quadrant. The symptoms have no relieving factors. The symptoms have been associated with bloating, constipation and dysuria, while the symptoms have not been associated with fever, nausea or vomiting. Note for Abdominal pain: is burning when urinates some- - constipa tion a little bit not formed- no nausea or vomit- but feels like could throw up -last week felt chills - no blood ins tool- had colosnocopy last may Encounter Diagnosis: Dysuria (Renamed from Difficult or painful urination), Constipation(564.00), Abdominal Pain,General (789.07) [facility] Office Visit On: 07-Feb-2015 15:31 Encounter Reason: Skin lesion - The skin lesion has been occurring for 1 month. It has been increasing in size. The skin lesion is characterized as red and raised above the skin. The skin lesion is located on the back and the face. End: 09-Feb-2015 7:02 Encounter Diagnosis: Lesion-Unknown behavior (238.2) [facility] Office Visit On: 10-Jan-2015 8:29 Encounter Reason: FatigueEncounter Diagnosis: Chronic fatigue, Shoulder pain, HYPOTHYROIDISM NOS (244.9), Fall, sequela, Disequilibrium of Gait(781.2), CARDIOMYOPATHY, PRIMARY NEC (425.4) End: 10-Jan-2015 9:04 [facility] Office Visit On: 08-Nov-2014 8:43 Encounter Reason: Follow up tests - Date: (11/04/14).Encounter Diagnosis: Constipation(564.00), Shoulder pain End: 08-Nov-2014 9:38 [facility] Office Visit On: 04-Nov-2014 8:59 Encounter Reason: Abdominal pain - The pain has been occurring in an episodic (mostly afternoon and evening) pattern for 3 weeks. Each episode lasts 3 weeks. The course has been recurrent. The pain is described as a mode End: 04-Nov-2014 17:05 rate crampy, pressure sensation and fullness. The pain is described as being located in the right lower quadrant and left lower quadrant. The pain radiates to the right shoulder and back. The symptoms h ave no relieving factors. The symptoms have been associated with abdominal distention, bloating, constipation, diarrhea, melena (Dark) and nausea.Encounter Diagnosis: Right shoulder pain, Abdominal Pain,General (789.07), Constipation(564.00), Diarrhea (787.91) [facility] Office Visit On: 15-Sep-2014 8:05 Encounter Diagnosis: Cough, Coronary Artery Disease (414.00), HYPOTHYROIDISM NOS (244.9) End: 15-Sep-2014 8:10 [facility] Office Visit On: 15-Sep-2014 7:36 Encounter Diagnosis: Cough, Right shoulder pain, Cerumen impaction (380.4) End: 15-Sep-2014 8:01 [facility] Office Visit On: 01-Sep-2014 10:08 Encounter Reason: Cough - The onset of the cough has been sudden. The cough is characterized as dry. The amount of sputum produced is scanty. The cough occurs all the time. The symptoms are aggravated by supine posture. End: 01-Sep-2014 10:38 The symptoms have been associated with headache, hoarseness, runny nose and wheezing, while the symptoms have not been associated with fever. the color of the sputum is clear.Encounter Diagnosis: Influenza, Cough [facility] Office Visit On: 13-Apr-2014 15:00 Encounter Reason: Rash - The last clinic visit was 1 day(s) ago. No changes in management were made at the last visit. Symptoms include skin blistering, pruritus and skin redness. The skin rash is located on the left pacheco End: 13-Apr-2014 15:45 d and right hand. There is no known event that preceded symptom onset. The symptoms occur constantly. The patient describes this as moderate in severity and worsening.Encounter Diagnosis: Rash [facility] Office Visit On: 18-Feb-2014 11:36 Encounter Reason: Follow up for chronic medical issues - The patient feels well with minor complaints, has good energy level and is sleeping well. Patient has been compliant with instructions. Current medication use: no End: 18-Feb-2014 12:24 side effects and considered effective by patient. Patient sleeps 7 hours per night. Impact of disease: emotional impact-mild. Nutrition: balanced diet and supplemental vitamins. The medical issues the p atient is following up for include cardiac issues, depression, high blood pressure, high cholesterol, hypothyroid, kidney problems, osteoarthritis and other (insomnia ).Encounter Diagnosis: OVERWEIGHT (278.02), Sleep disorder (780.50), Allergic rhinitis (477.9), Osteoarthritis- Generalized or Localized, Involving Unspecified Site (715.90), HX, PERSONAL, TIA AND CEREBRAL INFARCT (V12.54), Coronary Artery Disease (414.00), Depression (311.), Hyperlipidemia NEC/NOS (272.4), CARDIOMYOPATHY, PRIMARY NEC (425.4), Constipation(564.00), HYPOTHYROIDISM NOS (244.9), TACHYCARDIA, PAROXYSMAL VENTRICULAR (427.1), Headache, HX, PERSONAL, VENOUS THROMBOSIS/EMBOLISM (V12.51), Renal insufficiency (Renamed from Renal function impairment), Hip osteoarthritis, Second degree burn of upper limb, initial encounter, Annual Medicare Physical (V70.0) [facility] Office Visit On: 18-Nov-2013 13:18 Encounter Reason: Follow up for chronic medical issues - The patient feels well with minor complaints and has decreased energy level. Patient has been compliant with instructions. Current medication use: no side effects, End: 18-Nov-2013 14:20 compliant with dosing regimen and considered effective by patient. Patient sleeps 7 hours per night. Impact of disease: emotional impact-moderate. Nutrition: balanced diet and supplemental vitamins. Th e medical issues the patient is following up for include cardiac issues, depression, high blood pressure, high cholesterol, hypothyroid, kidney problems and osteoarthritis.Encounter Diagnosis: HYPOTHYROIDISM NOS (244.9), HX, PERSONAL, TIA AND CEREBRAL INFARCT (V12.54), Drug reaction, Coronary Artery Disease (414.00), Depression (311.), Osteoarthritis- Generalized or Localized, Involving Unspecified Site (715.90), OVERWEIGHT (278.02), Sleep disorder (780.50), Allergic rhinitis (477.9), Constipation(564.00), Hyperlipidemia NEC/NOS (272.4), Headache, HX, PERSONAL, VENOUS THROMBOSIS/EMBOLISM (V12.51), Renal insufficiency (Renamed from Renal function impairment), TACHYCARDIA, PAROXYSMAL VENTRICULAR (427.1), CARDIOMYOPATHY, PRIMARY NEC (425.4), Inflamed seborrheic keratosis (702.11) [facility] Office Visit On: 29-Oct-2013 10:46 Encounter Reason: Follow up acute care visit - The patient feels the same. Patient has been compliant with instructions. Current medication use: no side effects.Encounter Diagnosis: Chronic cough (786.2), End: 29-Oct-2013 16:44 BRONCHITIS, NOT SPECIFIED ACUTE OR CHRONIC (490.), Wheezing (786.07), Hypotension, unspecified (458.9), SYMPTOM, DIZZINESS AND GIDDINESS (780.4), DISORDER, VOLUME DEPLETION, DEHYDRATION (276.51), Headache [facility] Office Visit On: 26-Oct-2013 15:19 Encounter Reason: Follow up for chronic medical issues - The patient feels well with minor complaints, has good energy level and is sleeping well. Patient has been compliant with instructions. Current medication use: no End: 26-Oct-2013 16:28 side effects, compliant with dosing regimen and considered effective by patient. Patient sleeps 7 hours per night. Impact of disease: emotional impact-mild. Nutrition: balanced diet and supplemental vit amins. The medical issues the patient is following up for include cardiac issues, high blood pressure, high cholesterol, hypothyroid, kidney problems, osteoarthritis and other (allergic rhinitis, sleep and seziure disorder ).Encounter Diagnosis: BRONCHITIS, NOT SPECIFIED ACUTE OR CHRONIC (490.), Drug reaction [facility] Office Visit On: 22-Oct-2013 10:35 Encounter Reason: Cough - The onset of the cough has been sudden. The cough is characterized as dry. The amount of sputum produced is scanty. The cough occurs all the time. The symptoms are aggravated by supine posture. End: 22-Oct-2013 11:35 The symptoms have been associated with runny nose, while the symptoms have not been associated with fever, hoarseness or wheezing.Encounter Diagnosis: Chronic cough (786.2), Cerumen impaction (380.4), BRONCHITIS, NOT SPECIFIED ACUTE OR CHRONIC (490.) [facility] Office Visit On: 03-Sep-2013 13:42 Encounter Reason: Follow up for chronic medical issues - The patient feels well with minor complaints, has good energy level and is sleeping well. Patient has been compliant with instructions. Current medication use: no End: 03-Sep-2013 14:05 side effects, compliant with dosing regimen and considered effective by patient. Patient sleeps 7 hours per night. Impact of disease: emotional impact-mild. Nutrition: balanced diet and supplemental vit amins. 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 The End: 25-Jun-2013 13:58 apparent size of the suture removal is 1 cm (1-2 cm and 3 sutures). Encounter Diagnosis: Rib pain on right side (786.50), Visit for suture removal (V58.32) [facility] Office Visit On: 18-Jun-2013 13:14 Encounter Reason: Follow up for chronic medical issues - The patient feels well with minor complaints and has decreased energy level. Patient has been compliant with instructions. Current medication use: no side effects End: 18-Jun-2013 13:57 (off lisinopril still as had fibrillator changed and sees pacemaker nurse next month and reina in August). Patient sleeps 8 hours per night. Impact of disease: emotional impact-mild. Nutrition: bal anced diet and supplemental vitamins. 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), HYPOTHYROIDISM NOS (244.9), Depression (311.), Parasthesia (782.0), Renal insufficiency (593.9), OVERWEIGHT (278.02), Hyperlipidemia NEC/NOS (272.4), SEIZURE, NOS (780.3), Osteoarthritis- Generalized or Localized, Involving Unspecified Site (715.90), Allergic rhinitis (477.9), Sleep disorder (780.50), TACHYCARDIA, PAROXYSMAL VENTRICULAR (427.1), Constipation(564.00), HX, PERSONAL, 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 Patient has been compliant with instructions. Current medication use: experiencing side effects (dry mouth). Patient sleeps 8 hours per night. Impact of disease : emotional impact-mild. Nutrition: balanced diet and supplemental vitamins. The medical issues the patient is following up for include cardiac issues, depression, gastric reflux, high blood pressure, h igh cholesterol, hypothyroid, kidney problems, osteoarthritis and other (allergic rhinitis, seziures, paresthesias, speech impairment, CVA )., [ADDITIONAL REASON] Annual Medicare Exam - Yes the patient did have () a mini mental status exa m done today. The activities of daily living the patient needs help with are transferring, getting places out of walking distance, housework and laundry. The patient has driven in past 6 months and put handrails in bathroom, but the patient has not had fecal incontinence, had urinary incontinence, missed or ran out of medications to soon, fallen in the past 6 months, gotten lost, has a [employer] ce or bracelet or put area rugs through house. The patient does have durable power of ip technology transactions attorney and living will. The patient has noticed having problems with memory than others and lack of energy. Other providers contributing to the patient's care are speech instructor (Reina) and other: (eye doctor - has appt next monthpodiatry - MITALI Sue). 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 The cough is characterized as productive of mucoid sputum. The amount of sputum produced is scanty. The cough occurs mainly at night. The symptoms are ag End: 15-Feb-2013 11:02 gravated by supine posture. The symptoms have been associated with headache and wheezing, while the symptoms have not been associated with fever, hoarseness, runny nose or sore throat. the color of the sputum is clear.Encounter Diagnosis: Chronic cough (786.2), Wheezing (786.07), BRONCHITIS, NOT SPECIFIED ACUTE OR CHRONIC (490.) [facility] Office Visit On: 08-Dec-2012 11:20 [facility] End: 10-Dec-2012 7:39 Office Visit On: 08-Dec-2012 10:38 Encounter Reason: Follow up for chronic medical issues - The patient does not feel well (was seen last week as acute visit and takes doxy, pred and cough syrup from that visit - done with the prenisone and has 2 days lef End: 08-Dec-2012 11:19 t on atb) and has decreased energy level. Patient has been compliant with instructions. Current medication use: no side effects. Patient sleeps 8 hours per night. Impact of disease: emotional impact-mil d. Nutrition: balanced diet and supplemental vitamins. The medical issues the patient is following up for include cardiac issues, depression, gastric reflux, high blood pressure, high cholesterol, hypot hyroid, kidney problems, osteoarthritis and other (allergic rhinitis, seziures, paresthesias, speech impairment, CVA ).Encounter Diagnosis: HYPOTHYROIDISM NOS (244.9), Allergic rhinitis (477.9), Hyperlipidemia NEC/NOS (272.4), Coronary Artery Disease (414.00), CARDIOMYOPATHY, PRIMARY NEC (425.4), SEIZURE, NOS (780.3), Constipation(564.00), OVERWEIGHT (278.02), Osteoarthritis- Generalized or Localized, Involving Unspecified Site (715.90), Hypotension, unspecified (458.9), TACHYCARDIA, PAROXYSMAL VENTRICULAR (427.1), NEOP, DONITA NEC (229.8), CVA (437.9), SCREENING MAMMOGRAM NEC (V76.12), Bursitis, olecranon (726.33), Sleep disorder (780.50), Otitis Externa (380.10), Renal insufficiency (593.9), Parasthesia (782.0), HX, PERSONAL, 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 Patient has been compliant with instructions. Current medication use: no side effects and not considered effective by lenin End: 03-Dec-2012 10:59 ent (augmentin). Patient sleeps 7 hours per night. Impact of disease: emotional impact-mild. Nutrition: balanced diet and supplemental vitamins. The medical issues the patient is following up for include URI (right earache ).Encounter Diagnosis: Allergic rhinitis (477.9), Bronchitis, acute (466.0), Otitis Externa (380.10) [facility] Office Visit On: 25-Nov-2012 10:36 Encounter Reason: Sore Throat - Symptoms include sore throat, nasal congestion and swollen glands, while symptoms do not include fever or chills. The symptoms are symmetrical. The pain radiates to the left ear. The patie End: 25-Nov-2012 11:29 nt describes the pain as aching. Onset was sudden. The symptoms occur constantly. The patient describes this as moderate in severity and worsening. Associated symptoms include hoarseness, ear pain, naus ea and fatigue, while associated symptoms do not include headache or cough.Encounter Diagnosis: ACUTE PHARYNGITIS (462.), Cerumen impaction (380.4), Acute sinusitis (461.9) [facility] Office Visit On: 05-Oct-2012 13:27 Encounter Reason: Cold Symptoms - Onset was 8 day(s) ago.Encounter Diagnosis: Gastroenteritis (558.9), Acute sinusitis (461.9) End: 05-Oct-2012 14:00 [facility] Office Visit On: 08-Sep-2012 10:33 Encounter Reason: Follow up acute care visit - The patient feels the same (diarrhea 4-5x a day and feels it is not closing). Current medication use: no side effects. Patient sleeps 8 hours per night. The medical issues End: 08-Sep-2012 11:08 the patient is following up for include other.Encounter Diagnosis: Weight Gain (783.1), Urinary tract infection, site not specified (599.0), Constipation(564.00), OVERWEIGHT (278.02), CARDIOMYOPATHY, PRIMARY NEC (425.4), Coronary Artery Disease (414.00), HYPOTHYROIDISM NOS (244.9), Low back pain (724.2) [facility] Office Visit On: 21-Aug-2012 11:01 Encounter Diagnosis: Sleep disorder (780.50), Hyperlipidemia NEC/NOS (272.4), Dysuria (788.1), CARDIOMYOPATHY, PRIMARY NEC (425.4), Weight Gain (783.1), Screening for osteoporosis (V82.81) End: 21-Aug-2012 11:38 [facility] Annotation/Addendum On: 28-Apr-2012 15:15 Encounter Diagnosis: Screening for osteoporosis (V82.81), SCREENING MAMMOGRAM NEC (V76.12) End: 28-Apr-2012 15:23 [facility] Office Visit On: 28-Apr-2012 10:52 Encounter Reason: Follow up for chronic medical issues - The patient feels well with minor complaints and has decreased energy level. Patient has been compliant with instructions. Current medication use: no side effects, End: 28-Apr-2012 11:29 compliant with dosing regimen and considered effective by patient. Patient sleeps 8 hours per night. Impact of disease: emotional impact-mild. Nutrition: balanced diet and supplemental vitamins. 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 Patient has been compliant with instructions. Current medication use: no side effects and compliant with dosing re End: 06-Feb-2012 12:32 gimen. Patient sleeps 8 hours per night. The medical issues the patient is following up for include All identified problems below and other (lump on inside right calf)., [ADDITIONAL REASON] Skin Lesions - Symptoms include single skin lesion. Lesion(s) are located on the right trunk area (abd). The patient describes the lesion(s) as crusted, painless, raised, flesh-colored and pink. Onset was gradual 1 month(s) ago. Encounter Diagnosis: HYPOTHYROIDISM NOS (244.9), PREVENTION OF TETANUS (V03.7), HX, PERSONAL, VENOUS THROMBOSIS/EMBOLISM (V12.51), Inflamed seborrheic keratosis (702.11), Renal insufficiency (593.9), Sleep disorder (780.50) [facility] Office Visit On: 20-Jan-2012 10:53 Encounter Reason: Follow up for chronic medical issues - The patient feels well with minor complaints, has decreased energy level and is sleeping well. Patient has been compliant with instructions. Current medication use End: 20-Jan-2012 11:41 : no side effects, compliant with dosing regimen and considered effective by patient. Patient sleeps 8 hours per night. Impact of disease: emotional impact-mild. Nutrition: balanced diet and supplementa l vitamins. The medical issues the patient is following up for include cardiac issues, depression, high cholesterol, hypothyroid, kidney problems and other (CVA, PE)., [ADDITIONAL REASON] Follow up tests - Diagnostic tests include other (labs). Date: (01/15/12). Follow up visit with no current symptoms. 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 Date: (09-25-11).Encounter Diagnosis: Chronic cough (786.2), Sleep disorder (780.50), Hypotension, unspecified (458.9), HYPOTHYROIDISM NOS (244.9), Allergic rhinitis (477.9), End: 14-Oct-2011 8:07 Renal insufficiency (593.9), CARDIOMYOPATHY, PRIMARY NEC (425.4), Cerumen impaction (380.4) [facility] Office Visit On: 08-Oct-2011 13:50 Encounter Reason: Follow up acute care visit - The patient feels the same. Patient has been compliant with instructions. Current medication use: no side effects, compliant with dosing regimen and considered effective by End: 08-Oct-2011 17:14 patient. The medical issues the patient is following up for include All identified problems below and other (bronchitis).Encounter Diagnosis: BRONCHITIS, NOT SPECIFIED ACUTE OR CHRONIC (490.), Chronic cough (786.2), SYMPTOM, DIZZINESS AND GIDDINESS (780.4) [facility] Office Visit On: 04-Oct-2011 10:30 Encounter Reason: Follow up acute care visit - The patient does not feel well, has decreased energy level and worsening. Patient has been compliant with instructions. Current medication use: compliant with dosing regimen End: 04-Oct-2011 10:52 and not considered effective by patient. The medical issues the patient is following up for include All identified problems below and other (sinusitis).Encounter Diagnosis: Chronic cough (786.2), BRONCHITIS, NOT SPECIFIED ACUTE OR CHRONIC (490.) , Cerumen impaction (380.4) [facility] Office Visit On: 17-Sep-2011 13:52 Encounter Reason: Sinus pain - The onset of the pain has been acute and has been occurring in a persistent pattern for 1 week. The course has been constant and increasing in severity. The pain is characterized as a press End: 17-Sep-2011 14:38 ure sensation and deep pain. The pain is described as being located in the frontal area and the retro-ocular. Note for Sinus pain: has donita eatingand drinking not unusual for her to have these bps- claritin initially helped now it doesnt Encounter Diagnosis: Acute sinusitis (461.9), Allergic rhinitis (477.9) [facility] Office Visit On: 15-Aug-2011 10:26 Encounter Diagnosis: Parasthesia (782.0), Sleep disorder (780.50), Depression (311.), CARDIOMYOPATHY, PRIMARY NEC (425.4) End: 15-Aug-2011 11:21 [facility] Internal Medicine Office Visit On: 29-Jul-2011 9:33 Encounter Diagnosis: Dysuria (788.1), HYPOTHYROIDISM NOS (244.9), HYPOTENSION NEC (458.8), CARDIOMYOPATHY, PRIMARY NEC (425.4), CVA (437.9), Depression (311.), Parasthesia (782.0) End: 29-Jul-2011 10:14 [facility] Office Visit On: 22-Jul-2011 10:52 Encounter Reason: UTI - The urinary symptoms are described as painful urination, frequency and burning. The symptoms have been occurring for 3 days and have been recurrent. The symptoms have been associated with lightheadedness.Encounter Diagnosis: End: 22-Jul-2011 11:36 Urinary tract infection, site not specified (599.0), HYPOTENSION NEC (458.8) [facility] Office Visit On: 30-Apr-2011 12:07 Encounter Reason: Follow up acute care visit - The patient feeling better since last seen and improving. Patient has been compliant with instructions. Current medication use: no side effects and compliant with dosing reg End: 30-Apr-2011 12:48 imen. Patient sleeps 7 hours per night. Impact of disease: emotional impact-mild. Nutrition: balanced diet and supplemental vitamins. The medical issues the patient is following up for include URI.Encounter Diagnosis: HYPOTHYROIDISM NOS (244.9), Chronic cough (786.2), Renal insufficiency (593.9) [facility] Office Visit On: 19-Apr-2011 9:15 Encounter Reason: Preoperative evaluation - The patient feels well with minor complaints and has decreased energy level. Surgical procedures include: other (hip repair ). Date of procedure: (05-07-11 Dr. Cristian Isaac Joint End: 19-Apr-2011 10:08 Implant Surgeon [place], [place] ) . There have been no problems with general anesthesia or blood/blood products. Prosthetics include: eye glasses and other (bridge upper and lower ).Encounter Diagnosis: Acute sinusitis (461.9), Contact dermatitis and other eczema due to plants (except food) (692.6) [facility] Office Visit On: 16-Apr-2011 11:20 Encounter Reason: Skin Problems - The onset of the problems has been sudden and they have been occurring in a persistent pattern for 6 days. The course has been increasing. The problem is characterized as a rash, itching End: 16-Apr-2011 12:02 and a change in skin color. Lesions are described as red, flat and grouped in crops. The spots were first seen on the trunk. It spread to the trunk and the back. There has been associated fatigue and itching, while there has been no fever or pain. Encounter Diagnosis: Unspecified pruritic disorder (698.9), Contact dermatitis and other eczema due to plants (except food) (692.6) [facility] Office Visit On: 18-Feb-2011 8:41 Encounter Reason: Follow up acute care visit - The patient feeling better since last seen and improving. Patient has been compliant with instructions. Current medication use: no side effects and compliant with dosing reg End: 18-Feb-2011 9:35 imen. Patient sleeps 7 hours per night. Impact of disease: emotional impact-mild. Nutrition: balanced diet and supplemental vitamins. The medical issues the patient is following up for include other (bursitis olecranon right).Encounter Diagnosis: Bursitis, olecranon (726.33) [facility] Office Visit On: 15-Feb-2011 10:54 Encounter Reason: Skin changes - The onset of the skin changes has been gradual and they have been occurring in a persistent pattern for 1 day. The course has been increasing. The skin changes are described as severe.Encounter Diagnosis: End: 15-Feb-2011 11:21 Bursitis, olecranon (726.33) [facility] Office Visit On: 10-Jan-2011 11:32 Encounter Reason: Abdominal pain - The onset of the pain has been acute and has been occurring in a persistent pattern for 3 days. The course has been constant. The pain is described as a moderate crampy and pressure sen End: 10-Jan-2011 12:11 sation. The pain is described as being located in the entire abdomen. The pain does not radiate. The symptoms have no relieving factors. The symptoms have been associated with bloating, constipation and nausea. Note for Abdominal pain: last few week some cramp.last stool yesterday but not alot, harder. few days before that took senna and had diarrhea. last night hurting in chest and pressure. had th is before and was bowels. on nsaids for arthritis. stop nsaid for 1 week. took last night tums and peptobismol and help. no SOB.Encounter Diagnosis: Abdominal Pain,General (789.07) [facility] Office Visit On: 24-Dec-2010 11:20 Encounter Diagnosis: Limb pain (729.5) End: 25-Dec-2010 8:06 [facility] Office Visit On: 02-Nov-2010 14:09 Encounter Reason: Cold Symptoms - Symptoms include productive cough (wet but only comes up to throat), while symptoms do not include nasal congestion, runny nose, sore throat, hoarseness, dry cough, facial pressure, faci End: 02-Nov-2010 14:46 al pain or headache. Onset was gradual 1 week(s) ago. There is no known event that preceded symptom onset. The symptoms occur constantly. The patient describes this as moderate in severity and unchanged . Associated symptoms do not include ear pain, wheezing, shortness of breath, nausea, vomiting, diarrhea, fever or chills. Current treatment includes non- prescription cold medication (benedryl and cepac ol and nyquil). Note for Cold Symptoms: mostly draiange down back of throat - raspy cough and hoarse-tried salien in nose- =- no fever-treid benadryl and nasal spray- cough not getting better. moist but not know color. cold air worsen Encounter Diagnosis: BRONCHITIS, NOT SPECIFIED ACUTE OR CHRONIC (490.) [facility] Office Visit On: 06-Sep-2010 11:45 Encounter Reason: Follow up acute care visit - The patient feeling better since last seen and improving. Patient has been compliant with instructions. Current medication use: no side effects and compliant with dosing reg End: 10-Sep-2010 20:53 imen. Patient sleeps 7 hours per night. Impact of disease: emotional impact-mild. Nutrition: balanced diet and supplemental vitamins. The medical issues the patient is following up for include other (dehydration, weakness and dizziness ). Encounter Diagnosis: Chronic cough (786.2), Low back pain (724.2), SYMPTOM, SHORTNESS OF BREATH (786.05), Hypotension, unspecified (458.9), Upper respiratory infection (465.9), Diarrhea (787.91) [facility] Annotation/Addendum On: 03-Sep-2010 10:29 [facility] End: 03-Sep-2010 11:49 Office Visit On: 03-Sep-2010 9:34 Encounter Diagnosis: SYMPTOM, SHORTNESS OF BREATH (786.05), Low back pain (724.2), Osteoarthritis- Generalized or Localized, Involving Unspecified Site (715.90), Chronic cough (786.2) End: 03-Sep-2010 10:21 [facility] Office Visit On: 29-Aug-2010 10:04 Encounter Reason: Cold Symptoms - Symptoms include sore throat, hoarseness and dry cough, while symptoms do not include nasal congestion, runny nose, productive cough, facial pressure, facial pain or headache. Onset was End: 30-Aug-2010 22:13 gradual 3 week(s) ago. There is no known event that preceded symptom onset. The symptoms occur constantly. The patient describes this as moderate in severity and unchanged. Associated symptoms do not in clude ear pain, wheezing, shortness of breath, nausea, vomiting, diarrhea, fever or chills. Current treatment includes non-prescription cold medication (benedryl and cepacol and nyquil). Note for Cold Symptoms: mostly draiange down back of throat - raspy cough and hoarse-tried salien in nose- =- no fever-treid benadryl and nasal spray- , [ADDITIONAL REASON] Lower back pain - The onset of the pain has been sudden and has been occurring i n a persistent pattern for 3 days. The course has been increasing. The pain is characterized as a dull ache and shooting. The pain is described as being located in the lumbar area. The pain radiates to the no radiation (thorasic area). The pain is precipitated by trauma (fell on ice and landed on step). The symptoms have no aggravating factors. The symptoms are relieved by nothing (ice and heat helps relieve). The pain has been associated with back stiffness and trauma (fell on back when slipped on ice), while there has been no chills, dysuria, fever, flank pain, hip pain, history of back surgery, h istory of disc prolapse, incontinence of stool, incontinence of urine or leg weakness. Note for Lower back pain: stepped off porch and slid- on ice-sat nite - no pain in leg or weak or numb- doesnt hu rt to sit hurts to move- moslty lumbar paraspinal - trying col and heat and aspercreme , [ADDITIONAL REASON] Skin lesion Encounter Diagnosis: Upper respiratory infection (465.9), Low back pain (724.2), Lesion-Unknown behavior (238.2) [facility] Office Visit On: 23-Jul-2010 14:29 Encounter Reason: Follow up, Laboratory Test Results - Lab results: abnormal blood chemistry (tsh and thyroid labs). Date: (07/12/10). Current symptoms/reason for visit include/s Symptoms include other (left leg pain- groin).Encounter Diagnosis: End: 23-Jul-2010 15:16 Pulmonary embolism (415.19), Depression (311.), HYPOTHYROIDISM NOS (244.9), Limb pain (729.5) [facility] Phone Encounter On: 20-Jul-2010 11:57 Encounter Diagnosis: HYPOTHYROIDISM NOS (244.9) End: 20-Jul-2010 11:59 [facility] Annotation/Addendum On: 28-Jun-2010 15:08 Encounter Diagnosis: Hyperlipidemia NEC/NOS (272.4) End: 28-Jun-2010 15:10 [facility] Office Visit On: 28-Jun-2010 11:39 Encounter Reason: Vomiting - The onset of the vomiting has been acute and has been occurring in an intermittent pattern. The course has been increasing. The vomiting occurs approximately one hour after meals. The symptom End: 28-Jun-2010 13:17 s are aggravated by movement (motion). The symptoms have no relieving factors. The symptoms have been associated with abdominal pain (LLQ), diarrhea (3 times since 4 am) and neck stiffness.Encounter Diagnosis: Gastroenteritis (558.9), DISORDER, VOLUME DEPLETION, DEHYDRATION (276.51) [facility] Office Visit On: 24-May-2010 13:53 Encounter Reason: new patient female physical - Last seen less than 1 month ago. General health: feels well with minor complaints, has decreased energy level and is sleeping poorly. The patient's appetite is normal. Nutr End: 24-May-2010 22:28 ition: normal/adequate. Exercises 2 days per week. Sleeps on average 5 hours per night. Normal bowel and bladder habits. Safety measures include appropriate use of safety belts and home smoke detectors. Current emotional problems include anxiety, depression and sleep disturbances. screening, colonoscopy (unsure of date but knows she has had one ), screening, mammography (several years ago ), screening , Pap smear (several years ago ) and screening, visual acuity (wears glasses 2009 ).Encounter Diagnosis: Pulmonary embolism (415.19), Depression (311.), Coronary Artery Disease (414.00), SEIZURE, NOS (780.3), CVA (437.9), Hyperlipidemia NEC/NOS (272.4), CARDIOMYOPATHY, PRIMARY NEC (425.4), TACHYCARDIA, PAROXYSMAL VENTRICULAR (427.1), Hypotension, unspecified (458.9), Knee pain (719.46), Sleep disorder (780.50) [facility] Office Visit On: 07-May-2010 14:55 Encounter Diagnosis: Vaginal discharge (623.5) End: 07-May-2010 15:33 [facility] Payers Hum//Medicare Adv PlanCAROLYN ETHEL; guru guarantor
--- OUTSIDE RECORDS SUMMARY | 2018-09-02 17:57 | XMS RPT_ITS | Continuity of Care Document ---
:1940 Author Organization [facility] Address [facility] [place] [address] Phone Care Team Providers Name Role Phone Clary TIRADO, Minerva Painting Unavailable Dr. Les Montez Unavailable Riki TIRADO, Crispin Tucker Unavailable Ирина TIRADO, Clifford Benites Unavailable Caitlin TIRADO, Dr. Meka Painting Unavailable Kala TIRADO, Alejandro Fuentes Unavailable Jeremie Avendano Unavailable Tiffanie Saha Unavailable ARON Lawrence Unavailable Unavailable Long Jeanne DE LA [...] left leg wtih DVT or overall fluid -01 20% cath 18 40% Status: Active Constipation [...] looking at it now. sarita mims 04-27. amanda Braga at [facility] research possible percut. procedure [...] on neurotin and help some. Dr at [facility] not want to do surgery. using accupuncture [...] Puff(s) daily for 30 days Quantity: 1 {[place] Run} Refills: 5 Ordered:22-Jan-2018 Khang Ida Start : [...] days Quantity: 1 {Tube} Refills: 0 Ordered:15-Sep-2014 ARON Lawrence Start : 18-Feb-2014 End : 15-Sep-2014 [...] Quantity: 20 {Tablet} Refills: 0 Ordered:14-Jun-2015 Slarb PROJECT TECHNICIANMeka Start : 14-Jun-2015 End : 14-Jul-2015 Inactive PERCOCET, 5-325MG (Oral Tablet) 1 (one) Tablet Tablet every 6 hours prn for 0 days Quantity: 30 {Tablet} Refills: 0 Ordered:14-Jul-2015 ARON Larwence Start : 11-Apr-2015 End : 14-Jul-2015 Inactive [...] Quantity: 10 {Capsule} Refills: 0 Ordered:01-Sep-2014 Memo Armendariz CNP Start : 01-Sep-2014 End : 06-Sep-2014 [...] for 10 days Refills: 0 Ordered:22-Jul-2013 Memo Armendariz CNP Start : 25-Jun-2013 End : 05-Jul-2013 [...] prn (5 MG) End : 14-Jun-2015 Discontinued Comments:[facility] DOXYCYCLINE HYCLATE, 100MG (Oral Tablet) 1 (one) Tablet bid for 0 days Quantity: 20 {Tablet} Refills: 0 Ordered:02-Aug-2015 Slarb PROJECT TECHNICIAN Meka Start : 14-Jul-2015 End : 02-Aug-2015 [...] Vaginal Cream 1 (one) Cream twice weekly VT 1gm and small amount over urethra for [...] has shandra filter - will see Dr. segura to see what todo. chronic see above. [...] Hospital discharge follow-up (Z09, V67.59) Comments: pneumonia [facility] 03-31-17 to 04-02-17 Status: Resolved as of [...] Status: Inactive as of 04-Apr-2017 Vaccine for zlpguajdxr-yijtqpu-kxsnmtflr with poliomyelitis (Z23, V06.3) Status: Inactive as [...] Dates Details [facility] sx [facility] Single Completed Comments: with Mitral valve replacement October 2009 fibrillator replaced -- April 2013 Completed -- [place] Hysterectomy, Total Completed partial bilateral knee replacement 12-[address] Breand STATUS, HEART VALVE REPLACEMENT NEC Completed (V43.3) Date Value Details 17-Jun-2018 Cardiology Visit Report Result: Comments: See Note; NOTES: [facility] [address] [place] [address] OFFICE VISIT Date of Service: 06/17/18 MR#: [id number] Acct: [id number] Name: IRIS ARRIAGA Rep #: [id number] : 1940 Provider: Gurdeep Huang MD Age/Sex: 78/F Location: [facility] Status: Signed HPI HPI Details: IRIS ARRIAGA, is a 78 F who presents to the office today for outpatient cardiovascular follow-up. At the present time she denies any symptoms of ongoing chest pain. She admits to chronic shortness of breath and dyspnea but without significant change since her last visit. Maddy weeks has not had any obvious orthopnea or [...] PO .C OMPLEX 06/17/18 [History Confirmed 06/17/18] [facility] Medical History Paroxysmal ventricular tachycardia (Acute) Paroxysmal atrial tachycardia (Acute) Par oxysmal atrial fibrillation (Acute) Chronic systolic (congestive) heart failure (Chronic) Thrombophlebitis of left internal iliac vein (Acute) Bilateral carpal tunnel syndrome (Resolved) Menopausal oste oporosis (Chronic) Myalgia (Chronic) Renal insufficiency (Acute) Balance disorder (Chronic) Gait abnormality (Chronic) UTI symptoms (Acute) Memory impairment (Chronic) Prediabetes (Chronic) Stroke ([facility]) Nonrheumatic mitral (valve) prolapse (Resolved) Hyperlipemia (Chronic) Heart palpitations (Acute) Long-term use of high-risk medication (Chronic) 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 Car diac catheterization: 05/29/2011 CONCLUSION 1. Bsku-zj-ccyuidzy global left ventricular systolic dysfunction. Ejection fraction 40 percent. 2. Left main with 10 percent eccentric ostial stenosis/eccent smiley takeoff. 3. Left anterior descending with 10-20 percent smooth tubular proximal stenosis. 4. Circumflex coronary angiographically normal. 5. Right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 angiographically normal. Pacemaker /ICD: Portable Trackman: [employer] Name: Protecta VR Model #: [id number] Serial #: [id number] Date Implanted: 04/29/2013 Device Characteristics Device: Single [...] lipid labs were checked on 06/12/2018 at [facility] in [place], [place]. According to the report received today [...] MD 17-Jun-2018 12 Lead EKG performed by [facility] Result: Comments: See Note; NOTES: [facility] [address] [place] [address] 12 Lead EKG performed by [facility] 06/17/18 1359 MR#: [id number] Acct: [id number] Name: IRIS VALENCIA Rep #: [id number] : 1940 78 From: Gurdeep Huang MD Attending Dr: Gurdeep Huang MD Status: DEP AMB Ordering Dr: Gurdeep Huang MD Date: 06/17/18 [place] [facility] Sex: F C Admitted: BMS/12 Lead EKG performed by [facility] ECG Report Interpretation Sinus Rhythm -First degree A-V block - multiform ectopic ventricular beats Poor R wave progress ionVoltage criteria for Left ventricular hypertrophy Nonspecific ST depression ABNORMAL Electronically signed on 06/17/2018 at 17:25 by Gurdeep Huang Software Version [id number] 06/17/18 1726 Da te Gurdeep Huang MD CC: Minerva Vergara MD Date Dictated: 06/17/18 1359 Date Transcribed: 11/07/18 1359 Marketing Services Manager: PM Signed 01-May-2018 Pacemaker Check Result: Comments: See Note; NOTES: [facility] [address] [place] [address] Pacemaker Check Date of Service: 05/01/18 1428 MR#: [id number] Acct: [id number] Name: IRIS ARRIAGA Rep #: [id number] : 1940 From: Kim Pickard Age/Sex: 78/F [place] [facility] Status: Signed Billing Codes ICD Device Billing: ICD Dev Prog Eval, Single 05/01/18 1430 <Elect ronically signed by Kim Pickard > Date Kim Pickard 05/01/18 1634<Electronically signed by Gurdeep Huang MD> Cosigner Sign ature: Date (if applicable) Gurdeep Huang MD CC: 18-Mar-2018 Pulmonary Visit Report Result: Comments: See Note; NOTES: [facility] [address] [place] [address] OFFICE VISIT Date of Service: 03/18/18 MR#: [id number] Acct: [id number] Name: SIOMARA GAVIRIAIRIS Tucker Rep #: [id number] : 1940 Provider: Glenna Anderson Age/Sex: 78/F Location: [facility] Status: Signed Assessment AND Plan Problems 1. 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 [place] [address] Pacemaker Check Date of Service: 01/28/18 1424 MR#: [id number] Acct: [id number] Name: IRIS ARRIAGA Rep #: [id number] : 1940 From: Kim Pickard Age/Sex: 78/F Location: [facility] Status: Signed Comments Summary Comments: Single Chamber ICD Report: See attached scanned graphics programmer Repor t. Interrogation shows no VT/VF [...] in office Interview Reason: routine follow up Portable Trackman: [employer] Name: Protecta VR Model: [id number] Serial #: [id number] Implant Date: 04/29/13 Year(s): 4 Implant Physician: Dr. Jose Murphy Patient Characteristics Atrial Indication: Paroxysmal atrial fibrillation Ventricular Indication: Nonsustained VT Patient Substrate: Nonischemic cardiomyopathy By: Echo Implant DFT: 18J Underlying rhythm: Sinus rhythm Pacemaker Dependent: No Device Characteristics Device: Single Chamber Type: Implantable defibrillator Remote Follow-Up: No Device Physical Exam Yes Incision well healed Leads Lead #1 Portable Trackman Lead 1: Medtronic Model Lead 1: 5076 Serial# Lead 1: [id number] Date Implanted Lead 1: 09/03/04 Position Lead 1: RV Lead #2 Portable Trackman Lead 2: Medtronic Model Lead 2: 6943 Serial# Lead 2: [id number] Date Implanted Lead 2: 11/18/00 Position Lead [...] R00.2 6. Atherosclerot ic heart disease of capitan [place] band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 with angina pectoris I25.119 7. Syncope R55 02/01/18 1335 <Electronically signed by Kim Pickard > Date Kim Pickard 02/02/18 0800<Electronically signed by Gurdeep Huang MD> Cosigner Signature: Date (if applicable) Gurdeep Huang MD CC: 27-Oct-2017 Venous Duplex Lower Extremity Result: Comments: See Note; NOTES: [facility] Cardiovascular Services [address] [place] [address] Venous Duplex US, Unilateral 10/27/17 0952 MR#: [id number] Acct: [id number] Name: IRIS HOU Rep #: [id number] : 1940 77 From: Alejandro Armendariz MD [...] Date Dictated: 10/27/17 0952 Date Transcribed: 10/27/171613 Marketing Services Manager: Signed 15-Oct-2017 Pulmonary Visit Report Result: Comments: See Note; NOTES: [facility] [address] [place] [address] OFFICE VISIT Date of Service: 10/15/17 MR#: [id number] Acct: [id number] Name: IRIS STRINGER CH Rep #: [id number] : 1940 Provider: Glenna Anderson Age/Sex: 77/F Location: [facility] Status: Signed Assessment AND Plan 1. URMILA [...] months. Plan Detail Follow Up 3 Months (MIRNA) [facility] FU: Chief Complaint: Shortness of breath on exertion [facility] Comments Details: This is a 77 year [...] body aches. She has not utilized any whcv-mew-mhiuddq medications for her shortness of breath. 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) Tendinitis, [...] G47.33 IRENE (dyspnea on exertion) R06.09 10/15/17 1836 <Electronically signed by Glenna CORADO> Date Cher HICKSC Cosigner Signature: Date (if applicable) CC: Minerva Vergara MD 14-Oct-2017 SCREENING MAMM (CAD), BILAT Result: Comments: See Note; NOTES: [facility] Imaging Services [address] [place] [address] SCREENING MAMM (CAD), BILAT MR#: [id number] Acct: [id number] Name: IRIS ARRIAGA Rep #: [id number] : 1940 F 77 From: Ed Fink MD PCP: Minerva Vergara MD Status: REG CLI Study: SCREENING MAMM (CAD), BILAT Date of Exam: 10/14/17 Exam# [id number] Ordering Dr: Minerva Vergara MD MAMMOGRAPHY - [...] delay biopsy of a clinically suspicious abnormality. [id number] Electronically Signed: Ed Fink MD at 11:10 EST Tel [phone], Service support , CC: Minerva Vergara MD Marketing Services Manager: Signed 06-Oct-2017 Office Visit Report Result: Comments: See Note; NOTES: [facility] [address] [place] [address] OFFICE VISIT Date of Service: 09/25/17 MR#: [id number] Acct: [id number] Patient: IRIS ARRIAGA Rep #: [id number] : 1940 Provider: Kim Pickard Age/Sex: 77/F Location: [facility] Status: Signed Comments Summary Comments: Single Chamber ICD Evaluation: Interrogation shows no VT/VF episodes since 06/17/17. Left pectoral pocket/incision w/o s/s of infection or erosion. Pt offers no cardiac complaints. Presenting rhythm shows NSR @ 92 bpm. OPERATIONAL ASSISTANT=<0.1%. Lead impedance, sensing and pace/sense thres hold remain stable. No parameter changes made. Counters cleared. Next f/u appt scheduled for in 3 mos. Device Device Date Interviewed: 09/25/17 Follow-up Location: in office Interview Reason: routine follow up Portable Trackman: Medtronic Name: Protecta VR Model: [id number] Serial #: [id number] Implant Date: 04/29/13 Year(s): 4 Implant Physician: [...] Incision well healed Leads Le ad #1 Portable Trackman Lead 1: Medtronic Model Lead 1: 5076 Serial# Lead 1: [id number] Date Implanted Lead 1: 09/03/04 Position Lead 1: RV Additional Details: pace/sense lead Lead #2 Portable Trackman Lead 2: [employer] Model Lead 2: 6943 Serial# Lead 2: [id number] Date Implanted Lead 2: 11/18/00 Position Lead [...] Visit Report Result: Comments: See Note; NOTES: [facility] [address] [place] [address] OFFICE VISIT Date of Service: 09/11/17 MR#: [id number] Acct: [id number] Name: IRIS ARRIAGA Rep #: [id number] : 1940 Provider: Gurdeep Huang MD Age/Sex: 77/F Location[place] [facility] Status: Signed HPI 6 M FU: Details: [...] was evaluated for such at [facility]. 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 She is due to see her transfer knitter at [facility] in October of this year. [...] artery disease) I25.10 Coronary Disease-Associated Artery/Lesion type: cap[place] artery Long-term use of high-risk medication Z79.899 [...] artery disease) I25.10 Coronary Disease-Associated Artery/Lesion type: [place] artery Long-term use of high-risk medication Z79.899 09/11/17 1716 <Electronically signed by Gurdeep Huang MD> Date Gurdeep Huang MD Cosigner Signature: Date ___ (if applicable) CC: Minerva Vergara MD 28-Jul-2017 Venous Duplex Lower Extremity Result: Comments: See Note; NOTES: [facility] Cardiovascular Services [address] [place] [address] Venous Duplex US, Unilateral 07/28/17 0942 MR#: [id number] Acct: [id number] Name: Bacilio ARMENDARIZIRIS Tucker Rep #: [id number] : 1940 77 From: Alejandro Armendariz MD Attending Dr: Minerva Vergara MD Status: REG CLI Ordering Dr: Minerva Vergara MD Date: 07/28/17 Location: [facility] Sex: F C Admitted: Reason For Study: [...] MD CC: Minerva Vergara MD Date Dictated: 07/28/17941 Date Transcribed: 07/28/171751 Marketing Services Manager: Signed 28-Jul-2017 CT ANGIO ABD AND PEL W/O AND W/DYE Result: Comments: See Note; NOTES: [facility] Imaging Services [address] [place] [address] CT ANGIO ABD AND PEL W/O AND W/DYE MR#: [id number] Acct: [id number] Name: IRIS ARRIAGA Rep #: [id number] : 1940 F 77 From: Apolinar Ansari DO PCP: Minerva Vergara MD Status: REG CLI Study: CT ANGIO ABD AND PEL W/O AND W/DYE Date of Exam: 07/28/17 Exam# [id number] Ordering Dr: Minerva hCild i, MD STUDY: CT ABDOMEN AND PELVIS WITH CONTRAST REASON FOR EXAM: Female, 77 years old. IVC clot, left leg swelling RADIATION DOSAGE (If Supplied By Facility): CTDIvol = ( 23.87 ) mGy, DLP = ( 2023.85 ) mGycm TECHNIQUE: Transaxial images were obtained [...] Service support , CC: Minerva Vergara MD Marketing Services Manager: Signed 19-Feb-2017 6 Minute Walk Test Result: Comments: See Note; NOTES: [facility] Pulmonary Services/Neurology [address] [place] [address] MR#: [id number] Acct: [id number] Name: IRIS ARRIAGA Rep #: [id number] : 1940 77 From: Jeremie Avendano MD Referring Dr: Bruno Barcenas D.O. Date: Ordering Dr: Sex: F C Location: PSN PSN 6 Minute Walk Test - 6 Minute Walk Test 6 Minute Walk Test: 6 Minute Walk Test PS N:6-Minute Walk Test Start: 02/19/17 12:50 Freq: Status: Active Document 02/19/17 12:50 FR (Rec: 02/19/17 12:53 FR [id number]) 6 Minute Walk Test Date Performed 02/19/17 [...] followed closely. 02/19/17 1558 <Electronically signed by Jermeie Avendano MD> Date Bruc e Juan Alberto MD CC: Date Dictated: 02/19/17 1553 Date Transcribed: 02/19/171552 Marketing Services Manager: Jeremie Avendano Signed 03-Jan-2017 Abdomen/Pelvis WITH Contrast Result: Comments: See Note; NOTES: [facility] Imaging Services [address] [place] [address] Verdana 4d Abdomen/Pelvis WITH Contrast MR#: [id number] Acct: [id number] Name: JARON ARRIAGA Rep #: [id number] : 1940 F 76 From: Ed Fink MD PCP: Minerva Vergara MD Status: REG CLI Study: Abdomen/Pelvis WITH Contrast Date of Exam: 01/03/17 Exam# [id number] Ordering Dr: Minerva Bartlett MD STUDY: CT [...] Ed Fink MD at 13:03 EDT Tel [phone], Service support , CC: Minerva Vergara MD Marketing Services Manager: Signed 01-Jan-2017 Pulmonary Function Report Comp Result: Comments: See Note; NOTES: [facility] Pulmonary Services/Neurology [address] [place] [address] Pulmonary Function Test (Comp) MR#: [id number] Acct: [id number] Name: CATHLEEN ARRIAGA Rep #: [id number] : 1940 76 From: Bruno Barcenas DO Referring Dr: Minerva Vergara MD Status: REG CLI Ordering Dr: Minerva Vergara MD Date: 12/31/16 Location: [facility] Sex: F C DATE OF SERVICE: [...] Lisseth Valdivia C: Referring Provider . T: [facility] JOB: [id number] 01/01/17 1057 <Electronically signed by Christian Barcenas DO> Date Bruno Barcenas DO CC: Minerva Vergara MD; Bruno Barcenas D.O. Date Dictated: 12/31/161600 Date Transcribed: 12/31/161600 Marketing Services Manager: Signed 26-Dec-2016 Echocardiogram Complete Result: Comments: See Note; NOTES: [facility] Cardiovascular Services [address] [place] [address] Echo Complete 12/25/16 1357 MR#: [id number] Acct: [id number] Name: IRIS ARRIAGA Rep #: [id number] : 1940 76 From: Gurdeep Huang MD Attending Dr: Peace Miller Status: REG CLI Ordering Dr: Peace Miller Date: 12/25/16 Location: [facility] Sex: F C Admitted: Bacilio ludwig For Study: ASHD Procedure This was a [...] Minerva Vergara M.D. Performed By: Prema Fiore RD 12/26/16 0907 Date Gurdeep Huang MD CC: Minerva Vergara MD; Peace Miller Date Dictated: 12/25/16 1357 Date Transcribed: 12/26/16 0907 Marketing Services Manager: Signed 04-Dec-2016 Abd Inc Decub and/or Erect Result: Comments: See Note; NOTES: [facility] Imaging Services [address] [place] [address] Verdana 4d Abd Inc Decub and/or Erect MR#: [id number] Acct: [id number] Name: ETHELARI Jose Manuel Tucker Rep #: [id number] : 1940 F 76 From: Mele Brown MD PCP: Minerva Vergara MD Status: REG CLI Study: Abd Inc Decub and/or Erect Date of Exam: 12/04/16 Exam# [id number] Ordering Dr: Anita Quiñonez DO STUDY: X-RAY [...] CC: Minerva Vergara MD; Ida Quiñonez DO Marketing Services Manager: Signed 04-Dec-2016 CTA Chest W/WO Contrast Result: Comments: See Note; NOTES: [facility] Imaging Services [address] [place] [id number] [place] [address] 4d CTA Chest W/WO Contrast MR#: [id number] Acct: [id number] Name: IRIS ARRIAGA Rep #: [id number] : 1940 F 76 From: Ed Fink MD PCP: Minerva Vergara MD Status: REG CLI Study: CTA Chest W/WO Contrast Date of Exam: 12/04/16 Exam# [id number] Ordering Dr: Ida Quiñonez DO STUDY: CTA [...] Megan Fink MD at 15:43 EDT Tel [phone], Service support , CC: Minerva Vergara MD; Ida Quiñonez DO Marketing Services Manager: Signed 03-Dec-2016 Venous Duplex Lower Extremity Result: Comments: See Note; NOTES: [facility] Cardiovascular Services [address] [place] [address] Venous Duplex US - David Extrem 12/03/16 1553 MR#: [id number] Acct: [id number] Name: IRIS ARRIAGA Rep #: [id number] : 1940 76 From: Alejandro Armendariz MD [...] Alejandro Armendariz Performed By: Rm Ferro RVT 12/03/16 1850 Date Alejandro Armendariz MD CC: Minerva Vergara MD; Alejandro Armendariz MD Date Dictated: 12/03/16 1553 Da te Transcribed: 12/03/16 1850 Marketing Services Manager: Signed 02-Dec-2016 Abdomen without IV Contrast Result: Comments: See Note; NOTES: [facility] Imaging Services [address] [place] [address] Verdana 4d Abdomen without IV Contrast MR#: [id number] Acct: [id number] Name: CAMILA ARRIAGA Rep #: [id number] : 1940 F 76 From: Moses Chase MD PCP: Minerva Vergara MD Status: REG CLI Study: Abdomen without IV Contrast Date of Exam: 12/02/16 Exam# [id number] Ordering Dr: Minerva Broussard MD STUDY: CT [...] left.. CT/Abdomen without IV Contrast IMPRESSION: A [place] umbrella filter in place with at least 4 of the struts perforating the medial wall of the inferior vena ca va.. No hematoma in the retroperitoneum. Possible cholecystitis. A benign left renal cyst. A lumbar scoliosis with convexity to the left with degenerative changes involving the lower lumbosacral spin e. Electronically Signed: Moses Chase, at 7:27 EDT Tel , Service support , CC: Minerva Vergara MD Marketing Services Manager: Signed 31-Oct-2016 Abd Inc Decub and/or Erect Result: Comments: See Note; NOTES: [facility] Imaging Services [address] [place] [address] Verdana 4d Abd Inc Decub and/or Erect MR#: [id number] Acct: [id number] Name: ARI ARRIAGA Rep #: [id number] : 1940 F 76 From: Ed Fink MD PCP: Minerva Vergara MD Status: REG CLI Study: Abd Inc Decub and/or Erect Date of Exam: 10/31/16 Exam# [id number] Ordering Dr: Minerva Vergara MD STUDY: X-RAY [...] Ed Fink MD at 10:26 EDT Tel [phone], Service support [phone], CC: Minerva Vergara MD Marketing Services Manager: Signed 31-Oct-2016 Chest PA and Lateral Result: Comments: See Note; NOTES: [facility] Imaging Services [address] [place] [address] Verdana 4d Chest PA and Lateral MR#: [id number] Acct: [id number] Name: IRIS ARRIAGA Caitlin Re p #: [id number] : 1940 F 76 From: Ed Fink MD PCP: Minerva Vergara MD Status: REG CLI Study: Chest PA and Lateral Date of Exam: 10/31/16 Exam# [id number] Ordering Dr: Minerva Vergara MD S TUDY: [...] Ed Fink MD at 10:27 EDT Tel [phone], Service support [phone], CC: Minerva Vergara MD Marketing Services Manager: Signed 26-Sep-2016 Dexa Bone Density Study () Result: Comments: See Note; NOTES: [facility] Imaging Services [address] [place] [address] Verdana 4d Dexa Bone Density Study () MR#: [id number] Acct: [id number] Name: JARON ARRIAGA Rep #: [id number] : 1940 F 76 From: Ed Fink MD PCP: Minerva Vergara MD Status: REG [facility] Study: Dexa Bone Density Study () Date of Exam: 09/26/16 Exam# [id number] Ordering Dr: Minerva Bartlett MD STUDY: DUAL [...] Fink MD at 15:0 0 EST Tel [phone], Service support [phone], CC: Minerva Vergara MD Marketing Services Manager: Signed 26-Sep-2016 SCREENING MAMM (CAD), BILAT Result: Comments: See Note; NOTES: [facility] Imaging Services [address] [place] [address] Verdana 4d SCREENING MAMM (CAD), BILAT MR#: [id number] Acct: [id number] Name: CAMILA ARRIAGA Rep #: [id number] : 1940 F 76 From: Ed Fink MD PCP: Minerva Vergara MD Status: REG CLI Study: SCREENING MAMM (CAD), BILAT Date of Exam: 09/26/16 Exam# [id number] Ordering Dr: Minerva Child i, MD MAMMOGRAPHY [...] delay biopsy of a clinically suspicious abnormality. [id number] Electronically Signed: Ed Fink MD at 7:48 EST Tel [phone], Service support [phone], CC: Minerva Vergara MD Marketing Services Manager: Signed 09-Feb-2016 Operative Report Result: Comments: See Note; NOTES: [facility] Medical Records Department [address] [place] [address] Operative Report MR#: [id number] Acct: [id number] Name: CAMILA ARRIAGA Rep #: [id number] : 1940 76 From: Clifford Gifford MD [...] without difficulty to the cecum, identified by tulalip's foot appearance, ileocecal valve and appendiceal orifice. [...] RECOMMENDATIONS: Check histology and notify the patient. Kamari Gifford MD T: NTS JOB: [id number] 02/09/16 0706 <Electronically signed by Clifford Gifford MD> Date Clifford Gifford MD Cosign er Signature (If Indicated): Date CC: Clifford Gifford; Minerva Vergara MD Date Dictated: 01/30/1633 Date Transcribed: 01/30/16832 Marketing Services Manager: Signed 15-Nov-2015 Gallbladder Result: Comments: See Note; NOTES: [facility] Imaging Services [address] [place] [address] Verdana 4d Gallbladder MR#: [id number] Acct: [id number] Name: IRIS ARRIAGA Rep #: [id number] : 1940 F 75 From: Sofia Storey MD PCP: Minerva Vergara MD Status: REG ER Study: Gallbladder Date of Exam: 11/15/15 Exam# [id number] Ordering Dr: Jalil Nogueira MD STUDY: ULTRASOUND [...] MD at 21:57 EDT , Service support [phone], F ax [phone] CC: Minerva Vergara MD; Jalil Nogueira MD Marketing Services Manager: Signed 15-Nov-2015 Abdomen/Pelvis WITH Contrast Result: Comments: See Note; NOTES: [facility] Imaging Services [address] [place] [address] Verdana 4d Abdomen/Pelvis WITH Contrast MR#: [id number] Acct: [id number] Name : IRIS ARRIAGA Rep #: [id number] : 1940 F 75 From: Sofia Storey MD PCP: Minerva Vergara MD Status: REG ER Study: Abdomen/Pelvis WITH Contrast Date of Exam: 11/15/15 Exam# [id number] Order ing Dr: Jalil Nogueira MD STUDY: [...] MD at 20:10 EDT , Service support [phone], CC: Minerva Vergara MD; Jalil Nogueira MD Marketing Services Manager: Signed 31-Oct-2015 Cerv Spine 4 or 5 Views Result: Comments: See Note; NOTES: [facility] Imaging Services [address] [place] [address] Verdana 4d Cerv Spine 4 or 5 Views MR#: [id number] Acct: [id number] Name: IRIS WRAY Rep #: [id number] : 1940 F 75 From: Alexey Stephens MD PCP: Minerva Vergara MD Status: REG CLI Study: Cerv Spine 4 or 5 Views Date of Exam: 10/31/15 Exam# [id number] Ordering Dr: Tiffanie Corcoran DO STUDY: X-RAY [...] a t 13:54 EDT , Service support [phone], RAD/Cerv Spine 4 or 5 Views IMPRESSION: Severe cervical spondylosis. Electronically Signed: Earl Stephens MD, FACR at 13:54 EDT , Service support [phone], CC: Tiffanie Saha DO; Minerva Vergara MD Marketing Services Manager: Signed 28-Sep-2015 PT D/C Summary (1) Result: Comments: See Note; NOTES: [facility] Physical Therapy [facility] [address] [place] [address] Fax REHABILITATION SE RVICES DISCHARGE SUMMARY MR#: [id number] Acct: [id number] Name: IRIS ARRIAGA Rep #: [id number] : 1940 75 From: Kelvin Newman DPT, OCS, CSCS Referring DrTammi: Nerissa Bhat Status: REG RCR Eval Date: Discharge Date: HP - PT D/C Summary It has been my pleasure to treat IRIS ARRIAGA under orders from eMrt Raygoza, for the diagnosis of syncope, weakness [...] please feel free to call me at [phone]. Thank you for the referral of this patient. Sincerely, Kelvin Newman <Electronically signed by Kelvin Newman DPT, OCS, CSCS> 09/28/15 0944 CC: Minerva Vergara MD; Nerissa Bhat EBG Signed 24-Aug-2015 PT Communication Result: Comments: See Note; NOTES: [facility] Physical Therapy [facility] [address] [place] [address]. [address] [place] [address] Fax REHABILITATION SE RVICES PROGRESS NOTE MR#: [id number] Acct: [id number] Name: IRIS ARRIAGA Rep #: [id number] : 1940 75 From: Kelvin Newman Referring Dr.: Nerissa Bhat Status: REG RCR Insurance: [employer] MEDICARE PPO ANTHEM PT Communication Note 08/24/15 Dear Mert Moore and Dr. Vergara, Thank you for the referral of Iris Arriaga to [facility] for physical therapy and balance assessment. I [...] Kelvin Newman Cosigner Signature (if applicable): Da te CC: Minerva Vergara MD; Nerissa Bhat Signed For Medicare only, by signing this I certify the plan of care. Physicians Signature Date 17-Aug-2015 Inital Evaluation - PT Result: Comments: See Note; NOTES: [facility] Physical Therapy [facility] [address] [place] [address] [address]. [address] [place] [address] Fax REHABILITATION SE RVICES INITIAL EVALUATION MR#: [id number] Acct: [id number] Name: IRIS ARRIAGA Rep #: [id number] : 1940 75 From: Kelvin Newman Referring DrTammi: Nerissa Bhat Status: REG RCR Insuranc e: [employer] MEDICARE PPO Eval Date: ANTH Patient's Visit Information IRIS ARRIAGA is a 75 year old F, referred to Physical Therapy by Mert Raygoza,, with a diagnosis of syncope, we akness. Date of Evaluation: 08/16/15 Physical Therapist: Kelvin Newman - Visit Plan Frequency: 2x /Week Duration: 4-6 Weeks - Subjective Fell at [employer] in May and hurt head. Then p assed out shortly thereafter went to ER and was dehydrated. Went to Dr. vergara a couple weeks ago and was sent to ER for low blood pressure. Spent a few days in hospital and found that the pig valve is thickening. Will go to [place] later in month as Dr. Huang sent [...] to be FAXED BACK to us at [phone] for Medicare purp oses. Please let me know if there are questions or concerns regarding this plan of care. Physician Signature: Date: <Electron ically signed by Kelvin Newman > 08/17/15 0944 CC: Minerva Vergara MD; Nerissa Perlita EBG Signed For Medicare only, by signing this I certify the plan of care. Physicians Signature Date 09-Aug-2015 Brain/Head without Contrast Result: Comments: See Note; NOTES: [facility] Imaging Services [address] [place] [address] Verdana 4d Brain/Head without Contrast MR#: [id number] Acct: [id number] Name: IRIS ARRIAGA Rep #: [id number] : 1940 F 75 From: Robert Osborn MD PCP: Minerva Vergara MD Status: REG Study: Brain/Head without Contrast Date of Exam: 08/09/15 Exam# [id number] Ordering D r: Sneha Baptiste MD STUDY: [...] at 13:15 EST Tel , Service support [phone], CC: Minerva sierra MD; Sneha Baptiste MD Marketing Services Manager: Signed 09-Aug-2015 Chest 1 View (Portable) Result: Comments: See Note; NOTES: [facility] Imaging Services [address] [place] [address] Verdana 4d Chest 1 View (Portable) MR#: [id number] Acct: [id number] Name: IRIS WRAY Rep #: [id number] : 1940 F 75 From: Robert Osborn MD PCP: Minerva Vergara MD Status: REG ER Study: Chest 1 View (Portable) Date of Exam: 08/09/15 Exam# [id number] Ordering Dr: Sneha Baptiste MD STUDY: X-RAY [...] at 12:43 EST Tel , Service support [phone], RAD/Chest 1 View (Portable) IMPRESSION: No acute pulmonary process, no interval change Electronically Signed: Josesito Osborn MD at 12:43 EST Tel , Service support [phone], CC: Minerva Vergara MD; Sneha Baptiste MD Marketing Services Manager: Signed 20-Jul-2015 Chest PA and Lateral Result: Comments: See Note; NOTES: [facility] Imaging Services [address] [place] [address] Verdana 4d Chest PA and Lateral MR#: [id number] Acct: [id number] Name: IRIS ARRIAGA Rep #: [id number] : 1940 F 75 From: Ed Fink MD PCP: Minerva Vergara MD Status: REG CLI Study: Chest PA and Lateral Date of Exam: 07/20/15 Exam# [id number] Ordering Dr: Minerva Amezquita MD STUDY: X-RAY CHEST REASON FOR EXAM: Female, 75 years old. Cough. TECHNIQUE: PA and lateral views of the chest. COMPARISON: Comparison is made with prior study dated June 06. FINDINGS: The lungs are clear and expanded. [...] Ed Fink MD at 13:14 EST Tel [phone], Service support , RAD/Chest PA and Lateral IMPRESSION: No acute abnormality is seen. Electronically Signed: Ed Fink MD at 13:14 EST Tel [phone] , Service support [phone], CC: Minerva Vergara MD Marketing Services Manager: Signed 06-Jun-2015 Brain/Head without Contrast Result: Comments: See Note; NOTES: [facility] Imaging Services [address] [place] [address] Verdana 4d Brain/Head without Contrast MR#: [id number] Acct: [id number] Name: IRIS ARRIAGA Rep #: [id number] : 1940 F 75 From: Ed Fink MD PCP: Minerva Vergara MD Status: REG ER Study: Brain/Head without Contrast Date of Exam: 06/06/15 Exam# [id number] [facility]: Kermit Verduzco MD STUDY: CT BRAIN [...] posterior right parietal occipital bone. Electronically Signed: Ed Fink MD a t 16:13 EDT Tel [phone], Service support [phone], CC: Minerva Vergara MD; Kermit Verduzco MD Marketing Services Manager: Signed 06-Jun-2015 Chest 1 View (Portable) Result: Comments: See Note; NOTES: [facility] Imaging Services [address] [place] [address] Verda 4d Chest 1 View (Portable) MR#: [id number] Acct: [id number] Name: IRIS WRAY Rep #: [id number] : 1940 F 75 From: Farhad Cedillo MD PCP: Minerva Vergara MD Status: REG ER Study: Chest 1 View (Portable) Date of Exam: 06/06/15 Exam# [id number] Ordering Dr: Kermit Verduzco MD STUDY: X-RAY [...] at 17:06 EDT Tel , Service support [phone], LOWGAP ER #: [id number] RAD/Chest 1 View (Portable) IMPRESSION: 1. Left-sided bipolar pacemaker seen with leads appearing in good position. 2. Moderate cardiomegaly. 3. Status post sternotomy changes. 4. There is no evidence of infiltrate, atelectasis, or pleural fluid. Electronically Signed: Farhad Cedillo MD at 17:06 EDT Tel , Service support [phone], Fax CC: Minerva Vergara MD; Kermit Verduzco MD Marketing Services Manager: Signed 06-Jun-2015 Pelvis 1 or 2 Views Result: Comments: See Note; NOTES: [facility] Imaging Services [address] [place] [address] Verdana 4d Pelvis 1 or 2 Views MR#: [id number] Acct: [id number] Name: IRIS ARRIAGA Rep #: [id number] : 1940 F 75 From: Ed Fink MD PCP: Minerva Vergara MD Status: [facility] ER Study: Pelvis 1 or 2 Views Date of Exam: 06/06/15 Exam# [id number] Ordering Dr: Kermit Verduzco MD STUDY: X-RAY [...] Ed Fink MD at 16:15 EDT Tel [phone], Service support [phone], RAD/Pelvis 1 or 2 Views IMPRESSION: Status post bilateral total hip replacement. Elect ronically Signed: Ed Fink MD at 16:15 EDT Tel [phone], Service support [phone], CC: Minerva Vergara MD; Kermit Verduzco MD Marketing Services Manager: Signed 06-Jun-2015 Spine Cervical without Contras Result: Comments: See Note; NOTES: [facility] Imaging Services [address] [place] [address] Verdana 4d Spine Cervical without Contras MR#: [id number] Acct: [id number] Na me: IRIS ARRIAGA Rep #: [id number] : 1940 F 75 From: Ed Fink MD PCP: Minerva Vergara MD Status: REG ER Study: Spine Cervical without Contras Date of Exam: 06/06/15 Exam# [id number]: Kermit Verduzco MD STUDY: [...] Ed Fink MD at 16:15 EDT Tel [phone], Service support [phone], CC: Minerva Vergara MD; Kermit Verduzco MD Marketing Services Manager: Signed 19-Apr-2015 Spine Lumbar without Contrast Result: Comments: See Note; NOTES: [facility] Imaging Services [address] [place] [address] CAT Scan Report MR#: [id number] Acct: [id number] Name: ETHELIRIS Caitlin Rep #: [id number] : 1940 F 75 From: Tami Rodriguez MD PCP: Minerva Vergara MD Status: REG CLI Study: Spine Lumbar without Contrast Date of Exam: 04/19/15 Exam# [id number] Ordering Dr: Monica Mir, Out o. STUDY: [...] at 14:58 EDT Tel , Service support [phone], CC: Minerva Vergara MD; OUT OF TOWN DOCTOR Marketing Services Manager: Signed 19-Apr-2015 Lumbar Myelogram Result: Comments: See Note; NOTES: [facility] Imaging Services [address] [place] [address] Radiology Report MR#: [id number] Acct: [id number] Name: IRIS ARRIAGA Rep #: [id number] : 1940 F 75 From: Tami Rodriguez MD PCP: Minerva Vergara MD Status: REG CLI Study: Lumbar Myelogram Date of Exam: 04/19/15 Exam# [id number] Ordering Dr: CRISTIAN COFFEY CLINICAL HISTORY : [...] at 15:12 EDT Tel , Service support [phone], RAD/Lumbar Myelogram IMPRESSI ON: There is severe spinal canal stenosis at L4-5. Electronically Signed: Jessy Rodriguez MD at 15:12 EDT Tel , Service support [phone], CC: Gina Vergara MD; CRISTIAN COFFEY Marketing Services Manager: Signed 10-Apr-2015 Discharge Instruction Result: Comments: See Note; NOTES: [facility] Medical Records Department [address] [place] [address] Discharge Instruction 04/03/15 1440 MR#: [id number] Acct: [id number] Name: IRIS ARRIAGA Rep #: [id number] : 1940 75 From: Ellen Gilman MD [...] problems, contact your doctor. Call [facility] ([phone]) or report to the closest Emergency Room. Call 911 if necessary. 04/03/15 1441 <Electronically signed by Ellen Gilman MD> Date Ellen Gilman MD 04/10/15 0835<Electronically signed b gisell Polanco MD> Cosigner Signature (If Indicated): Date Rickie Polanco MD CC: Minerva Vergara MD 10-Apr-2015 Discharge Instruction Result: Comments: See Note; NOTES: [facility] Medical Records Department [address] [place] [address] Discharge Instruction 04/03/15 1448 MR#: [id number] Acct: [id number] Name: IRIS ARRIAGA Rep #: [id number] : 1940 75 From: Rickie Polanco MD PCP: Minerva Vergara MD Status: DEP ER ED Disposition - Plan for ED Patient: Disposition: Home or Assisted Living [facility] Complaint: Lower Extremity Injury Instructions: ED Leg [...] problems, contact your doctor. Call [facility] ([phone]) or report to the closest Emergency Room. Call 911 if necessary. 04/10 0835 <Electronically signed by Rickie Polanco MD> Date Rickie Polanco MD Cosigner Signature (If Indicated): Date CC: Minerva Vergara MD 10-Apr-2015 Emergency Department Summary Result: Comments: See Note; NOTES: [facility] Medical Records Department [address] [facility] [place] [address] Emergency Department Summary MR#: [id number] Acct: [id number] Name: IRIS VALENCIA Rep #: [id number] : 1940 75 From: Ellen Gilman MD PCP: Minerva Vergara MD Status: DEP ER DATE OF SERVICE: 04/03/2015 This is [...] acute. Ellen Gilman MD T: NTS JOB: [id number] 04/05/15 0836 <Electronically signed by Ellen Gilman MD> Date Ellen Gilman MD 04/10/15 0835 <Electronically signed by Natanael Polanco MD> Cosigner Signature (If Indicated): Date Rickie Polanco MD CC: Minerva Vergara MD Date Dictated: 04/03/151454 Date Transcribed: 04/03/151454 Marketing Services Manager: Signed 04-Apr-2015 12 Lead Electrocardiogram Result: Comments: See Note; NOTES: [facility] Cardiovascular Services [address] [facility] [place] [address] 12 Lead EKG 04/03/151350 MR#: [id number] Acct: [id number] Name: IGGY ARRIAGA Rep #: [id number] : 1940 75 From: Gurdeep Huang MD [...] ECG Confirmed by REINA TIRADO, GURDEEP ([id number]), editorial cartoonist CAROLEE MARIEE ([id number]) on 04/04/2015 10:27:52 AM Referred By: VALENTINA Confirmed By:GURDEEP HUANG MD 04/04/15 1027 Date Gurdeep Huang MD CC: Minerva Vergara MD Date Dictated: 04/03/15 135 Date Transcribed: 04/03/15 1351 Marketing Services Manager: Signed 03-Apr-2015 Femur 2 Views Result: Comments: See Note; NOTES: [facility] Imaging Services [address] [place] [address] Radiology Report MR#: [id number] Acct: [id number] Name: IRIS ARRIAGA Rep #: [id number] : 1940 F 75 From: Ed Fink MD PCP: Minerva Vergara MD Status: REG ER Study: Femur 2 Views Date of Exam: 04/03/15 Exam# [id number] Ordering Dr: Rickie Polanco MD STUDY: X- [...] Ed Fink MD at 12:59 EDT Tel [phone], Service support [phone], RAD/ Femur 2 Views IMPRESSION: No acute abnormality is seen. Electronically Signed: Ed Fink MD at 12:59 EDT Tel [phone], Service support [phone], CC: Minerva Vergara MD; Rickie Polanco MD Marketing Services Manager: Signed 03-Apr-2015 Chest PA and Lateral Result: Comments: See Note; NOTES: [facility] Imaging Services [address] [place] [address] Radiology Report MR#: [id number] Acct: [id number] Name: IRIS ARRIAGA Caitlin Rep #: [id number] : 1940 F 75 From: Ed Fink MD PCP: Minerva Vergara MD Status: REG ER Study: Chest PA and Lateral Date of Exam: 04/03/15 Exam# [id number] Ordering Dr: Ellen Gilman MD STUD Y: X-RAY CHEST REASON FOR EXAM: Female, 75 years old. Chest pain and chest tightness. TECHNIQUE: AP and lateral views of the chest. COMPARISON: Comparison is made with prior examination dated Febr ua 2014. FINDINGS: There is blunting of the [...] Ed Fink MD at 13:05 EDT Tel [phone], Service support [phone], Fax RAD/Chest PA and Lateral IMPRESSION: Mild degree of linear scarring at the lung bases and blunting of both costophrenic angles. Electronically Signed: Ed ledezma MD at 13:05 EDT Tel [phone], Service support [phone], CC: Ellen Gilman MD; Minerva Vergara MD Marketing Services Manager: Signed 27-Mar-2015 Abd Inc Decub and/or Erect Result: Comments: See Note; NOTES: [facility] Imaging Services [address] [place] [address] Radiology Report MR#: [id number] Acct: [id number] Name: IRIS ARRIAGA Rep #: [id number] : 1940 F 75 From: Tylor Guzman DO PCP: Minerva Vergara MD Status: REG CLI Study: Abd Inc Decub and/or Erect Date of Exam: 03/27/15 Exam# [id number] Ordering Dr: Ida Quiñonez DO STUDY: X- [...] Guzman DO at 18:34 EDT Te l [phone], Service support [phone], 0093 RAD/Abd Inc Decub and/or Erect IMPRESSION: No acute abdominal pathology is noted. Electronically Signed: Tylor Guzman DO at 18:34 EDT Tel [phone], Service support [phone], CC: Minerva Vergara MD; Ida Quiñonez DO Marketing Services Manager: Signed 20-Mar-2015 PT Discharge Summary Result: Comments: See Note; NOTES: [facility] Physical Therapy [address] [place] [address] Fax REHABILITATION SERVICES DISCHARGE SUMMARY MR#: [id number] Acct: [id number] Name: IRIS ARRIAGA Rep #: [id number] : 1940 75 From: Kelvin Newman Referring Dr.: Minerva Vergara MD Status: REG RCR Eval Date: Disch arge Date: DATE OF SERVICE: PHYSICIAN: Dr. Vergara. [...] program. Kelvin Newman, PT T: NTS JOB: [id number] <Electronically signed by Kelvin Newman > 03/20/15 0648 CC: Signed 25-Jan-2015 Chest PA and Lateral Result: Comments: See Note; NOTES: [facility] Imaging Services [address] [place] [address] Radiology Report MR#: [id number] Acct: [id number] Name: IRIS ARRIAGA Rep #: [id number] : 1940 F 75 From: Apolinar Ansari DO PCP: Minerva Vergara MD Status: REG CLI Study: Chest PA and Lateral Date of Exam: 01/25/15 Exam# [id number] Ordering Dr: Gurdeep Huang MD STUD Y: [...] at 5:42 EDT Tel , Service support [phone], RAD/Chest PA and Lateral IMPRESSION: Very minimal left basilar atel ectasis. Otherwise, no acute process. Electronically Signed: Apolinar Ansari DO at 5:42 EDT Tel , Service support [phone], CC: Minerva Vergara MD; Gurdeep Huang MD Marketing Services Manager: Signed 24-Jan-2015 Pulmonary Function Report Comp Result: Comments: See Note; NOTES: [facility] Pulmonary Services/Neurology [address] [place] [address] Pulmonary Function Test (Comp) MR#: [id number] Acct: [id number] Name: IRIS ARAUJO Rep #: [id number] : 1940 75 From: Jeremie Avendano MD Referring Dr: Peace Curran Status: REG CLI Ordering Dr: Peace Curran Date: 01/18/15 Location: [facility] Sex: F C MAI E OF [...] Lisseth MEDRANO C: Gurdeep Huang MD T: [facility] JOB: [id number] SPIROMETRY Ref ULN/LLN Pre Pre Post Post [...] Avendano to read. Date: 01/18/15 Tech.: Natalie Molinaerer Temp: PBar: Height(in.): 71 Weight(lbs.): 174 Diagnosis: Amiodarone therapy Medication : : Dyspnea Rest: Dyspnea Exercise: Cough: Productive (cc): Persistent: Smoker: N How Long (pk/yrs): Stopped (yrs): Cigarettes: Cigars: 01/24/15 0647 <Electronically signed by Grisel Avendano MD> Date Jeremie Avendano MD CC: Jeremie Avendano MD; Minerva Vergara MD; Peace Curran; Gurdeep Huang MD Date Dictated: 01/19/151645 Date Transcribed: 01/19/151645 Marketing Services Manager: Signed 19-Jan-2015 Inital Evaluation - PT Result: Comments: See Note; NOTES: [facility] Physical Therapy [facility] [address] [place] [address]. [address] [place] [address] Fax REHABILITATION SERVICES INITIAL EVALUATION MR#: [id number] Acct: [id number] Name: IRIS ARRIAGA Rep #: [id number] : 1940 75 From: Kelvin Newman Referring Dr.: Minerva Vergara MD Status: REG RCR Insurance: [...] dizzyness, no obvious LE neuropathy. Live with bryn in two story house, can do step s with rail. Basement sometimes for laundry but tries to minimize it due to fatigue. Basic ADLs I. Enjoys eating and reading and walking with . Shops with [employer]memercy, no AD. - Objective Objective: Ambulates with [...] patient on: Condition, Plan of Care Comments: orse blas, recommend use cane For the Purpose [...] to be FAXED BACK to us at [phone] for Medicare purposes. Please let me know if there are questions or concerns regarding this plan of care. & amp;#60;Electronically signed by Kelvin Newman > 01/19/15 0932 CC: EL Signed For Medicare only, by signing this I certify the plan of care. Physicians Signature Date 10-Jan-2015 ELECTROCARDIOGRAM, COMPLETE (ECG) (70068) Result: [MEASUREMENTS ANALYSIS] Date of Test: 08/09/2015 10:29:14; Heart Rate: 78; VT Interval: 230; QRS: 114; QT Interval: 438; Corrected QT Interval (QTc): 469; P Wave [place]: 69; QRS Wave [place]: -7; T Wave [place] : 22; Blood Pressure: 140/90 [ECG DIAGNOSTIC STATEMENTS] Date of Test: 08/09/2015 10:29:14; Summary: Sinus Rhythm -First degree A-V block -Frequent pvcs - ventricular bigeminy [place] = 230- Nonspecific T-abnormality. ABNORMAL [MEASUREMENTS ANALYSIS] Date of Test: 08/09/2015 10:29:10; Heart Rate: 78; VT Interval: 230; QRS: 114; QT Interval: 438; Corrected QT Interval (QTc): 469; P Wave [place]: 69; QRS [address] [place]: -7; T Wave [place]: 22; Blood Pressure: 140/90 [ECG DIAGNOSTIC STATEMENTS] Date of Test: 08/09/2015 10:29:10; Summary: Sinus Rhythm -First degree A-V block -Frequent pvcs -ventricular bigeminy [place] = 230- Nonspecific T- abnormality. ABNORMAL 05-Jan-2015 PT Discharge Summary Result: Comments: See Note; NOTES: [facility] Physical Therapy [facility] [address] [place] [address]. [address] [place] [address] Fax REHABILITATION SERVICES DISCHARGE SUMMARY MR#: [id number] Acct: [id number] Name: IRIS ARRIAGA Rep #: [id number] : 1940 74 From: Kelvin Newman Referring DrTammi: Tiffanie Saha DO Status: REG RCR Eval Date: Cheryl palomo Date: DATE OF SERVICE: 01/04/2015 PHYSICIAN: Tiffanie [...] program. Kelvin Newman, PT T: LORI JOB: [id number] <Electronically signed by Kelvin Newman > 01/05/15 0931 CC: Signed 24-Nov-2014 Inital Evaluation - PT Result: Comments: See Note; NOTES: [facility] Physical Therapy [facility] [address] [place] [address]. [address] [place] [address] Fax REHABILITATION SERVICES INITIAL EVALUATION MR#: [id number] Acct: [id number] Name: IRIS ARRIAGA Rep #: [id number] : 1940 74 From: Kelvin Newman Referring DrTammi: Tiffanie Saha DO Status: REG RCR Insurance: [employer] MEDICARE PPO Eval Date: ANTHEM DATE OF [...] is sleepin g well. She is a [employer] member here at [employer], but has not worked out here much [...] heat. Kelvin Newman, PT T: NTS JOB: [id number] <Electronically signed by Kelvin Newman > 11/24/14 0940 CC: Signed For [facility] only, by signing this I certify the plan of care. Physicians Signature Date 04-Nov-2014 Abdomen Single View Result: Comments: See Note; NOTES: [facility] Imaging Services [address] [place] [address] Radiology Report MR#: [id number] Acct: [id number] Name: IRIS ARRIAGA Rep #: [id number] : 1940 F 74 From: Ed Fink MD PCP: Minerva Vergara MD Status: REG CLI Study: Abdomen Single View Date of Exam: 11/04/14 Exam# [id number] Ordering Dr: Minerva Vergara MD STUDY : [...] Ed Fink MD at 14:10 EDT Tel [phone], Service support [phone], Fax RAD/Abdomen Single View IMPRESSION: Moderate amount of fecal material is seen throughout the colon. Electronically Signed: Ed Fink MD at 14: 10 EDT Tel [phone], Service support [phone], CC: Minerva Vergara MD Marketing Services Manager: Signed 04-Nov-2014 Shoulder min 2 Views Result: Comments: See Note; NOTES: [facility] Imaging Services [address] [place] [address] Radiology Report MR#: [id number] Acct: [id number] Name: IRIS ARRIAGA Rep #: [id number] : 1940 F 74 From: Ed Fink MD PCP: Minerva Vergara MD Status: REG CLI Study: Shoulder min 2 Views Date of Exam: 11/04/14 Exam# [id number] Ordering Dr: Minerva Vergara MD STUD Y: [...] Ed Fink MD at 14:11 EDT Tel [phone], Service support [phone], CC: Minerva Vergara MD Marketing Services Manager: Signed 21-Oct-2014 Echocardiogram Complete Result: Comments: See Note; NOTES: [facility] Cardiovascular Services [address] [place] [address] Echo Complete 10/19/14 1314 MR#: [id number] Acct: [id number] Name: CATHLEEN ARRIAGA Rep #: [id number] : 1940 74 From: Gurdeep Huang MD Attending Dr: Gurdeep Huang MD Status: REG CLI Ordering Dr: Gurdeep Huang MD Date: 10/19/14 Location: [facility] Sex: F C Admitted: Procedure This was [...] Date Dictated: 10/19/14 1314 Date Transcribed: 10/19/141740 Marketing Services Manager: Signed 23-Sep-2014 12 Lead Electrocardiogram Result: Comments: See Note; NOTES: [facility] Cardiovascular Services [address] [place] [address] 12 Lead EKG 09/22/14 1440 MR#: [id number] Acct: [id number] Name: JARON ARRIAGA Rep #: [id number] : 1940 74 From: Peewee Cotto MD [...] Abnormal ECG Confirmed by PEEWEE COTTO ([id number]), editorial cartoonist CAROLEE MARIEE ([id number]) on 09/23/2014 2: 44:4 7 PM Referred By: TRAV Confirmed By:PEEWEE COTTO 09/23/14 1444 Date Peewee Cotto MD CC: Minerva Vergara MD Date Dictated: 09/22/14 1440 Date Transcribed: 09/22/14 1440 Marketing Services Manager: Signed 22-Sep-2014 Discharge Instruction Result: Comments: See Note; NOTES: [facility] Medical Records Department [address] [facility] [address] Discharge Instruction 09/22/14 1616 MR#: [id number] Acct: [id number] Name: IRIS ARRIAGA Rep #: [id number] : 1940 74 From: Kermit Verduzco MD PCP: Minerva Vergara MD Status: DEP ER ED Disposition - Plan for ED Patient: Disposition: Home Chief Complaint: Sync ope Instructions: ED Hypotension, Orthostatic What to do if you have Problems For any increased pain, shortness of breath, bleeding, nausea or vomiting, chest pain, or any unexpected problems, co ntact your doctor. Call [facility] ( [phone]) or report to the closest Emergency Room. Call 911 if necessary. 09/22/14 1725 <Electronically signed by Kermit Verduzco MD> Date Kermit Verduzco MD Cosigner Signature (If Indicated): Date CC: Minerva Vergara MD 22-Sep-2014 Emergency Department Summary Result: Comments: See Note; NOTES: [facility] Medical Records Department [address] [place] [address] Emergency Department Summary MR#: [id number] Acct: [id number] Name: IRIS ARRIAGA Rep #: [id number] : 1940 74 From: Kermit Verduzco MD [...] stood up quickly and went over to human resource advisor, 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 She [...] Discharge. Kermit Verduzco MD T: NTS JOB: [id number] 09/22/14 8751 <Electronically signed by Kermit Verduzco MD> Date Kermit Verduzco MD CC: Minerva Vergara MD Date Dictated: 09/22/141614 Date Transcribed: 09/22/141614 Marketing Services Manager: Signed 22-Sep-2014 Chest PA and Lateral Result: Comments: See Note; NOTES: [facility] Imaging Services [address] [place] [address] Radiology Report MR#: [id number] Acct: [id number] Name: IRIS ARRIAGA Rep #: [id number] : 1940 F 74 From: Ed Fink MD PCP: Minerva Vergara MD Status: REG ER Study: Chest PA and Lateral Date of Exam: 09/22/14 Exam# [id number] Ordering Dr: Kermit Verduzco MD ROWAN DY: [...] CC: Minerva Vergara MD; Kermit Verduzco MD Marketing Services Manager: Signed Family History Unknown Family Member Name [...] Status: 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 Exercise History Comments: Exercises occasionally [...] kg/m2 Body Surface Area Calculated 1.96 m2 11-Mvf-860105:52 Temperature 97.9 f Comments: Method: Temporal Pulse [...] kg/m2 Body Surface Area Calculated 1.97 m2 39-Oqz-393480:15 Comments: sitting- spo2 on 2L- 89% P66 [...] Surface Area Calculated 1.98 m2 :52 Temperature 97.4 f Comments: Method: Temporal BP Systolic 90 mm[Hg] Comments: Patient Position: Sitting; Cuff Location: Left Arm; Cuff Size: Standard BP Diastolic 60 mm[Hg] Comments: Patient Position: Sitting; Cuff Location: Left Arm; Cuff Size: Standard Weight 175 lb Height 69.5 in Body Mass Index Calculated 25.47 kg/m2 Body Surface Area Calculated 1.96 m2 59-Nfm-343619:20 Temperature 97.6 f Comments: Method: Temporal Pulse [...] Body Surface Area Calculated 1.96 m2 :42 Temperature 97.6 f Comments: Method: Oral Pulse [...] 1.99 m2 :24 Comments: whisper test -- 1/ repeated back Temperature 97.2 f Comments: Method: [...] 157 lb Results Date Description Value Details 6-Skf-391893:10 Basic Metabolic Profile (BMP) Comments: [facility] [address] [place], [address] GAP 7 (Normal) Range: 5-15 CO2 35.0 [...] A.D.A. criteria.Please note revised GLUCOSE reference range cncsafwms35/02/2018. 7-Fap-876806:10 CBC W/Diff, Automated Comments: [facility] [address] [place], [place], [address] Absolute Lymph 1.12 {X10_3/ul} (Normal) Range: 0.83-4.51 [...] 4.2-5.4 WBC 8.5 K/mm3 (Normal) Range: 4.4-11.0 5-Elh-035478:10 Liver Profile Comments: [facility] [address] [place], [place], [address] D BILI 0.14 mg/dL (Normal) Range: 0.00-0.30 T BILI 0.50 mg/dL (Normal) Range: 0.20-1.00 ALT 26 U/L (Normal) Range: 13-56 ALK P 78 U/L (Normal) Range: 45-117 AST 30 U/L (Normal) Range: 15-37 GLOB 4.3 g/dL (Abnormal) Range: 2.2-4.2 ALB 3.7 g/dL (Normal) Range: 3.2-5.0 T PROT 8.0 g/dL (Normal) Range: 6.4-8.2 0-Myq-518875:10 Partial Thromboplast Time Comments: [facility] [address] [place], [place], [address] PTT 27.7 s (Normal) Range: 24.1-36.2 9-Ynm-441082:10 Prothrombin Time w/INR Comments: [facility] [address] [place], [place], [address] INR 1.4 (Normal) PROTIME 17.1 s (Abnormal) Range: 11.7-14.9 02-Cjf-512614:20 Metabolic Panel, Basic Comments: PATIENT NOT FASTINGPERFORMED BY: [facility] Kmcwzh1655 [facility] [id number] (22744) Calcium 9.4 mg/dL (Normal) Range: 8.7-10.3 Carbon [...] 8-27 Glucose 72 mg/dL (Normal) Range: 65-99 84-Agf-86965:13 Pathology Report Comments: PERFORMED BY: CYCIN [facility] [place] Umbi5248 [facility] [id number] BY: KWCYT [facility] [place] Cyto Xuaav40811 [facility] [id number] Clinical Information: [id number] See MATER Comments: Material submitted: .ABDOMINAL BIOPSYClinical [...] ENTIRELY SUBMITTEDIN ONE CASSETTE.BCO/SMIPathologist provided ICD-10:D21.4, L82.1CPT .533788 46-Rvh-020383:35 Comprehensive Metabolic Profil Comments: [facility] [address] [place], [address] GAP 8 (Normal) Range: 5-15 CO2 33.0 mmol/L (Abnormal) Range: 21.0-32.0 CL 95 mmol/L (Abnormal) Range: 98-107 K 3.6 mmol/L (Normal) Range: 3.5-5.1 NA 136 mmol/L (Normal) Range: 136-145 T BILI 0.70 mg/dL (Normal) Range: 0.20-1.00 ALT 23 U/L (Normal) Range: 13-56 Comments: Please note revised ALT reference range pwsjtfaqw95/28/2018. ALK P 79 U/L (Normal) Range: 45-117 [...] Comments: Please note revised GLUCOSE reference range hojocgafo80/02/2018. 44-Wje-910059:35 Phosphorus Comments: [facility] [address] [facility] [address] [place], [place], [address] PHOS 4.0 mg/dL (Normal) Range: 2.5-4.9 63-Bcb-692747:35 Uric Acid Comments: [facility] [address] [place], [place], [address] URIC 10.9 mg/dL (Abnormal) Range: 2.6-6.0 Comments: The drugs N-Acetylcysteine and Metamizole may falselydepress this assay. 89-Hct-039613:19 Metabolic Panel, Comments: fax a copy to Dr. Tucker [phone] Huang [phone]; A courtesy copy of this report has been sent [phone], .PATIENT NOT FASTINGPERFORMED BY: [facility] Dubl po7067 Jyotsna Clements (165[address]) x [facility] [id number] Information: HARD DRAW/BUTTERFLY ALT (SGPT) 19 [iU]/L [...] Glucose, Serum 97 mg/dL (Normal) Range: 65-99 86-Reu-447937:56 Basic Metabolic Profile (BMP) Comments: Order Date: 08/07/17Order Info: 0667-1 - BMPComments: now stat and prnWTri[facility] [address] [place], [address] GAP 8 (Normal) Range: 5-15 [...] 7-18 GLU 80 mg/dL (Normal) Range: 70-110 76-Tdf-164709:23 CREATININE FINGERSTICK Comments: [facility] LaboratoryPoint of [address] [place] [address] CREATININE WB 1.3 mg/dL (Abnormal) Range: 0.55-1.02 11-Sep-20171:20 CBC WITH MANUAL DIFF Comments: PATIENT NOT FASTINGPERFORMED BY: [facility] Wxcxbr4877 [facility] [id number] Information: NURSE DRAW (79031) Immature Grans (Abs) 0.0 {x10E3/uL} (Normal) Range: [...] Panel, Comprehensive Comments: PATIENT NOT FASTINGPERFORMED BY: [facility] Eojwtj7766 [facility] [id number] ([id number]) ALT (SGPT) 11 [iU]/L (Normal) Range: 0-32 [...] 101 mg/dL (Abnormal) Range: 65-99 11-Sep-20171:20 URINALYSIS (66414) Comments: PATIENT NOT FASTINGPERFORMED BY: [facility] Rkbayb2131 [facility] [id number] Microscopic Examination MICNIP (Normal) Comments: Microscopic not indicated and not performed. Nitrite, Urine Negative (Normal) Urobilinogen,Semi-Qn 1.0 mg/dL (Normal) Range: 0.2-1.0 Bilirubin Negative (Normal) Occult Blood Negative (Normal) Ketones Negative (Normal) Glucose Negative (Normal) Protein Trace (Normal) WBC Esterase Negative (Normal) Appearance Clear (Normal) Urine-Color Yellow (Normal) pH 7.0 (Normal) Range: 5.0-7.5 Specific [place] 1.018 (Normal) Range: 1.005-1.030 3-Oxg-086474:34 Basic Metabolic Profile (BMP) Comments: [facility] [address] [place], [address] GAP 10 (Normal) Range: 5-15 CO2 26.0 [...] 7-18 GLU 92 mg/dL (Normal) Range: 70-110 14-Ddc-576800:03 Basic Metabolic Profile (BMP) Comments: Order Date: 05/01/17Order Info: 0667-1 - *BMPComments: Reason:[facility] [address] [place], [address] GAP 5 (Normal) Range: 5-15 CO2 28.0 [...] 7-18 GLU 64 mg/dL (Abnormal) Range: 70-110 97-Dts-528356:16 Renal function Panel (74851) Comments: PATIENT NOT FASTINGPERFORMED BY: [facility] CenterWwouue5552 [facility] [id number] Albumin, Serum 4.3 g/dL (Normal) Range: 3.5-4.8 [...] Glucose, Serum 91 mg/dL (Normal) Range: 65-99 77-Mvb-74344:15 Urinalysis, Complete Comments: Order Date: 03/31/17How was Urine Obtained? BANKING PIN ADJUSTER TO [facility] [address] [place], [address] MUCUS, URINE 0 SEEN {/hpf} [...] CLARITY Sl. Cloudy (Normal) COLOR Yellow (Normal) 50-Yza-73834:45 Lactic Acid Comments: Yes/No query for Sepsis Lactate Rule [facility] [address] [place], [address] LACTIC ACID 0.8 mmol/L (Normal) Range: 0.4-2.0 87-Xeg-82202:39 BNP,B-Type NATRIURETIC PEPTIDE Comments: [facility] [address] [place], [address] B-TYPE HUMBLE PEP 1017.0 pg/mL (Abnormal) Range: 0-100 :39 CBC W/Diff, Automated Comments: [facility] [address] [place], [address] ANISO 1+ (Normal) Absolute Lymph 0.75 {X10_3/ul} [...] Serial specimen #1, #2, #3, or #4: 1WTriHealth [facility] [address] [place], [place], [address] GAP 8 (Normal) Range: 5-15 CO2 26.0 [...] <126 mg/dLsuggests IMPAIRED HOMEOSTASIS per A.D.A. criteria. :39 Troponin-I Comments: 'TROP' Serial specimen #1, #2, #3, or #4: 1[facility] [address] [place], [place], [address] TROPONIN-I 0.06 ng/mL (Normal) Comments: TROPONIN-I EXPECTED VALUES <0.05 NEGATIVE 0.06 - 0.59 AT RISK OF NV > OR = 0.60 SUGGEST NV 95-Wfp-74928:03 Bedside Glucose Comments: [facility] LaboratoryPoint of Nvon[address] [place] [address] BEDSIDE GLU 146 mg/dL (Abnormal) Range: 70-110 Comments: MANAGEMENT OF PATIENT CARE PER NURSING PROTOCOL 31-Wan-246398:25 Vitamin D,25 Hydroxy Comments: Order Date: 01/17/17Order Info: 0788-1 - *Hepatic Function Panel3 ORDERING DOCTORS:REINA REID ORDERED: LIVER LIPIDDR.NOVY ORDERD: BMPMARY CIESA ORDERED: TSH, VITD, A0ARuvbrrz [facility] twxh3176 [place], [address] Vitamin D 25-OH 35.2 ng/mL (Normal) Comments: Vitamin D 25(OH) Status Range Deficiency <20 ng/mL (50nmol/L) Insuffciency 20 - 30 ng/mL (50 - 75 nmol/L) Sufficiency 30 - 100 ng/mL (75 - 250 nmol/L) Toxicity >100 ng/mL (>250 nmol/L) 31-Etq-675708:20 Basic Metabolic Profile (BMP) Comments: Order Date: 01/17/17Order Info: 0788-1 - *Hepatic Function Panel3 ORDERING DOCTORS:REINA REID ORDERED: LIVER LIPIDDR.NOVY ORDERD: BMPMARY CIESA ORDERED: TSH, VITD, M4WQskdu Date: 01/17/17Order Info: 46093-5 - *Lipid Profile CC PCPComments: 12 hours fasting, may have water.[facility] [address] [place], [address] GAP 6 (Normal) Range: 5-15 CO2 [...] 7-18 GLU 109 mg/dL (Normal) Range: 70-110 64-Rxh-394952:20 Lipid Profile Comments: Order Date: 01/17/17Order Info: 0788- 1 - *Hepatic Function Panel3 ORDERING DOCTORS:REINA REID ORDERED: LIVER LIPIDDR.NOVY ORDERD: BMPMARY CIESA ORDERED: TSH, VITD, H1QKgmua Date: 01/17/17 Order Info: 69222-1 - *Lipid Profile CC PCPComments: 12 hours fasting, may have water.[facility] [address] [place], [address] VLDL 20 mg/dL (Normal) Range: 5-40 LDL [...] 200-240 mg/dL Borderline >240 mg/dL High Risk 51-Pzg-474580:20 Liver Profile Comments: Order Date: 01/17/17Order Info: 0788- 1 - *Hepatic Function Panel3 ORDERING DOCTORS:REINA REID ORDERED: LIVER LIPIDDR.NOVY ORDERD: BMPMARY CIESA ORDERED: TSH, VITD, M4RAmqak Date: 01/17/17 Order Info: 56718-1 - *Lipid Profile CC PCPComments: 12 hours fasting, may have water.[facility] [address] [place], [address] D BILI 0.24 mg/dL (Normal) Range: 0.00-0.30 T BILI 0.60 mg/dL (Normal) Range: 0.20-1.00 ALT 27 U/L (Normal) Range: 12-78 ALK P 84 U/L (Normal) Range: 45-117 AST 27 U/L (Normal) Range: 15-37 GLOB 3.7 g/dL (Abnormal) Range: 2.3-3.5 ALB 3.8 g/dL (Normal) Range: 3.4-5.0 T PROT 7.5 g/dL (Normal) Range: 6.4-8.2 59-Eud-215013:20 T4 Free Direct Comments: Order Date: 01/17/17Order Info: 0788- 1 - *Hepatic Function Panel3 ORDERING DOCTORS:REINA REID ORDERED: LIVER LIPIDDR.NOVY ORDERD: BMPMARY CIESA ORDERED: TSH, VITD, R0RUdhnq Date: 01/17/17 Order Info: 63270-1 - *Lipid Profile CC PCPComments: 12 hours fasting, may have water.[facility] [address] [place], [address] T4 FREE DIRECT 1.51 ng/dL (Abnormal) Range: 0.76-1.46 71-Pxo-248746:20 Thyroid Stim Hormone (TSH) Comments: Order Date: 01/17/17Order Info: 0788-1 - *Hepatic Function Panel3 ORDERING DOCTORS:REINA REID ORDERED: LIVER LIPIDDR.NOVY ORDERD: BMPMARY CIESA ORDERED: TSH, VITD, C3OVctqg Date: 01/17/17Order Info: 46460-1 - *Lipid Profile CC PCPComments: 12 hours fasting, may have water.[facility] [address] [place], [address] TSH 3.02 {uIU/mL} (Normal) Range: 0.358-3.74 18-Cgh-142565:00 Pathology Report Comments: PERFORMED BY: KWCYT [facility] Cyto Iwypb79113 [address] [id number] BY: [facility] Dermatopathology Jmoette[address] [id number] Information: [id number] See MATER Comments: Material submitted: .SHAVE BIOPSY OF RIGHT ABDOMENClinician provided ICD-10:L82.1Clinical history: . Note (Normal) Diagnosis:BENIGN VERRUCAL KERATOSIS.02/08/2017Electronically signed: .Gege Reece MD, DermatopathologistGross description: .SUBMITTED IN FORMALIN LABELED IRIS ARRIAGA AND IS DESIGNATEDRIGHT ABDOMEN IS A FRAGMENT OF FERGUSON TISSUE THAT MEASURES 1.4 X .8X .3 CM. THE MARGINS ARE INKED BLUE. THE SPECIMEN IS TRISECTEDAND SUBMITTED IN TOTO.XJW/BXSPathologist provided ICD-10:D23.5CPT .256954 32-Hvy-018010:12 Basic Metabolic Profile (BMP) Comments: Order Date: 01/15/17Order Info: 0667-1 - *BMPComments: Reason:[facility] [address] [place], [place], [address] GAP 5 (Normal) Range: 5-15 CO2 32.0 [...] 7-18 GLU 82 mg/dL (Normal) Range: 70-110 4-Xfs-900094:04 Basic Metabolic Profile (BMP) Comments: Order Date: 01/08/17Order Info: 0667-1 - *BMPComments: Reason: BMP: 1 [facility] [address] [place], [place], [address] GAP 11 (Normal) Range: 5-15 CO2 28.0 [...] <126 mg/dLsuggests IMPAIRED HOMEOSTASIS per A.D.A. criteria. 02-Xeu-419282:28 Lipid Profile Comments: Order Date: 06/18/16Order Info: 0788- 1 - *Hepatic Function PanelLIVER AND LIPID WERE ORDERED BY ATININE LEVEL ORDERED BY Date: 06/18/16Order Info: 28391-1 - *Lipid Profi le CC PCPComments: 12 hours fasting, may have water.[facility] [address] [place], [place], [address] VLDL 14 mg/dL (Normal) Range: 5-40 LDL [...] 200-240 mg/dL Borderline >240 mg/dL High Risk 92-Twe-656375:28 Liver Profile Comments: Order Date: 06/18/16Order Info: 0788- 1 - *Hepatic Function PanelLIVER AND LIPID WERE ORDERED BY ATININE LEVEL ORDERED BY Date: 06/18/16Order Info: 01658-6 - *Lipid Profi le CC PCPComments: 12 hours fasting, may have water.[facility] [address] [place], [place], [address] D BILI 0.48 mg/dL (Abnormal) Range: 0.00-0.30 T BILI 1.10 mg/dL (Abnormal) Range: 0.20-1.00 ALT 62 U/L (Normal) Range: 12-78 ALK P 94 U/L (Normal) Range: 45-117 AST 59 U/L (Abnormal) Range: 15-37 GLOB 3.3 g/dL (Normal) Range: 2.3-3.5 ALB 3.7 g/dL (Normal) Range: 3.4-5.0 T PROT 7.0 g/dL (Normal) Range: 6.4-8.2 44-Ivx-212872:28 Serum Creatinine AND GFR Comments: Order Date: 06/18/16Order Info: 0788-1 - *Hepatic Function PanelLIVER AND LIPID WERE ORDERED BY INE LEVEL ORDERED BY Date: 06/18/16Order Info: 27291-8 - *Lipid Profi le CC PCPComments: 12 hours fasting, may have water.[facility] [address] [place], [place], [address] EST GFR - AA 52 mL/min (Abnormal) Comments: GFR Calc EST GFR 43 mL/min (Abnormal) Comments: Non- GFR Calc CREAT,SERUM 1.29 mg/dL (Abnormal) Range: 0.55-1.02 Comments: The validity of the calculated GFR AND GFRAA in patients over70 years has not been determined. Clinical correlation isessential. 01-Yja-928729:36 Anticardiolipin IgA,G,M Comments: [facility] (refer to report [...] Positive: >20 - 80 High Positive: >80 37-Hql-930327:36 Comprehensive Metabolic Profil Comments: [facility] [address] [place], [place], [address] GAP 4 (Abnormal) Range: 5-15 CO2 26.0 [...] 7-18 GLU 103 mg/dL (Normal) Range: 70-110 15-Lyv-403390:36 Fact V Leiden Mutation Comments: [facility] (refer to report for specific site)refer to report for address and phone number COMMENT (Normal) Comments: Comment:Genetic counselors are available for health care providersto discuss results at [phone] ([phone]).Methodology:DNA analysis of the Factor V gene was performed byallele-specific PCR. The d iagnostic sensitivity andspecificity is >99% for both. Molecular-based testing ishighly accurate, but as in any laboratory test, diagnosticerrors may occur. All test results must be combined withclin ical information for the most accurate interpretation.This test was developed and its performance characteristicsdetermined by [facility]. It has not been cleared or approvedby the Food and Drug Administra tion.References:Nicholas Armijo (1995). Clin Lab Med 16:169-186.Raul Cano, PhD, Cinthya May, PhD, Wilbur Clemente, PhD, Marly Wen M.S., PhD, Lilia Way, PhD, Kaia Reynaga, PhD, Richard Juarez PhD, [facility] [place] [facility] FACTOR V LEIDEN (Normal) Comments: Result: Negative [...] in the workup for venous thrombosis include [id number] mutation in the factor II (prothrombin) gene,protein S and C deficiency, and antithrombin deficiencies.Anticardiolipin antibody and lupus 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 an alysismay be appropriate for certain patients, as well ashomocysteine levels.Contact your local [facility] for information on how to orderadditional testing if desired. 59-Rys-363142:36 Factor II, DNA Analysis Comments: [facility] (refer to report for specific site)refer to report for address and phone number COMMENT (Normal) Comments: Additional Information:Genetic Counselors are available for health care providersto discuss results at [phone]).Methodology:DNA analysis of the Factor II gene was performed by Louis grewal followed by restriction analysis. Thediagnostic sensitivity is >99% for both. All the tests mustbe combined with clinical information for the most accurateinterpretation. Molecular-based testing is highly accurate,but as in any laboratory test, diagnostic errors may occur.This test was developed and its performance characteristicsdetermined by [facility]. It has not been cleared or approvedby the Food and Drug Administration.Poort SR, et al. Blood. 1996; 88:0926-4886.Robert EA. Circulation. 2004; 110:e15-e18.Stanislav I, et al. Arterioscler Thromb Vasc Biol. 1999;19:700-703.Raul Cano, Ph D, FACSavana May, PhD, Wilbur Clemente, PhD, Marly Wen M.S., PhD, FACHeath Way, PhD, Kaia Reynaga, PhD, Richard Juarez, PhD, [facility] [facility] COMMENT (Normal) Comments: Comment:A point mutation ([id number]) in the factor II (prothrombin)gene is the [...] individual mutations. This assay detects onlythe prothrombin L86753R mutation and does not measuregenetic abnormalities elsewhere in the genome. Otherthrombotic r isk factors may be pursued through systematicclinical laboratory analysis. These factors include pcbI292M (Leiden) mutation in the Factor V gene, plasmahomocysteine levels, as well as testing for defici encies ofantithrombin III, protein C and protein S. FACTOR II,DNA (Normal) Comments: Factor II, DNA Analysis NEGATIVE No mutation identified. 15-Vun-412968:36 Partial Thromboplast Time Comments: [facility] [address] [place], [place], [address] PTT 28.3 s (Normal) Range: 24.1-36.2 90-Rec-528377:36 Prothrombin Time w/INR Comments: [facility] [address] [place], [place], [address] INR 1.3 (Normal) PROTIME 15.5 s (Abnormal) Range: 11.7-14.9 :39 CBC W/Diff, Automated Comments: Order Date: 12/02/16Order Info: 0184-1 - CBCDComments: coipy to Dr. jessie armendariz statOrder Date: 12/02/16Order Info: 0184-1 - CBCDComments: coipy to Dr. jessei armendariz statOrder Date: 12/02/16O rder Info: 0788-1 - LIVERComments: to stat copy to Dr. natalie armendarizUniversity [facility] [address] [place], [place], [address] Absolute Lymph 1.13 {X10_3/ul} (Normal) Range: 0.83-4.51 [...] 4.2-5.4 WBC 8.8 K/mm3 (Normal) Range: 4.4-11.0 20-Qoq-35905:39 Liver Profile Comments: Order Date: 12/02/16Order Info: 0788-1 - LIVEROrder Date: 12/02/16Order Info: 0788-1 - LIVERComments: to stat copy to Dr. estrada [facility] [address] [place], [address] D BILI 0.28 mg/dL (Normal) Range: 0.00-0.30 T BILI 0.80 mg/dL (Normal) Range: 0.20-1.00 ALT 33 U/L (Normal) Range: 12-78 ALK P 71 U/L (Normal) Range: 45-117 AST 30 U/L (Normal) Range: 15-37 GLOB 2.9 g/dL (Normal) Range: 2.3-3.5 ALB 3.8 g/dL (Normal) Range: 3.4-5.0 T PROT 6.7 g/dL (Normal) Range: 6.4-8.2 94-Wwe-601547:38 URINE DAR CULTURE (NOREEN Comments: PATIENT NOT FASTINGPERFORMED BY: [facility] Glhzkd1209 [facility] [id number] Information: SRC:UC COL COUNT) ([id number]) Antimicrobial MIHEAD (Normal) Comments: S = Susceptible; [...] Colonies/mL (Abnormal) Urine Final report Culture,Comprehensive (Abnormal) :33 CBC W/Diff, Automated Comments: Order Date: 10/31/16Order Info: 0184-1 - CBCDOrder Info: [id number] - SEDOrder Date: 10/31/16Order Info: 0184-1 - CBCDOrder Info: [id number] - SEDOrder Date: 10/31/16Order Info: 3040-3 - LIPASEW [facility] Qtvxjfckxd[address] [place], [place], [address] Absolute Lymph 1.10 {X10_3/ul} (Normal) Range: 0.83-4.51 [...] 4.2-5.4 WBC 11.1 K/mm3 (Abnormal) Range: 4.4-11.0 :33 Comprehensive Metabolic Profil Comments: Order Date: 10/31/16Order Info: 0786-1 - CMPOrder Info: 1798-8 - AMYOrder Info: 3040-3 - LIPASEOrder Date: 10/31/16Order Info: 3040-3 - LIPASEComments: all [facility] Srhgapsdyt50 [address] [place], [address] GAP 10 (Normal) Range: 5-15 CO2 26.0 [...] 7-18 GLU 86 mg/dL (Normal) Range: 70-110 39-Oun-60467:33 Erythrocyte Sed Rate Comments: Order Date: 10/31/16Order Info: 0184-1 - CBCDOrder Info: [id number] - SEDOrder Date: 10/31/16Order Info: 0184-1 - CBCDOrder Info: [id number] - SEDOrder Date: 10/31/16Order Info: 3040-3 - LIPASEW [facility] [address]mb[address] [place], [address] SED RATE 12 mm/h (Normal) Range: 0-30 :33 Lipase (12463) Comments: Order Date: 10/31/16Order Info: 0786- 1 - CMPOrder Info: 1798-8 - AMYOrder Info: 3040-3 - LIPASEOrder Date: 10/31/16Order Info: 3040-3 - LIPASEComments: all [facility] Wzbdnqmzlq16 [address] [place], [address](563) LIPASE 216 U/L (Normal) Range: 73-393 :33 Amylase (00641) Comments: Order Date: 10/31/16Order Info: 0786- 1 - CMPOrder Info: [id number] - AMYOrder Info: 3040-3 - LIPASEOrder Date: 10/31/16Order Info: 3040-3 - LIPASEComments: all [facility] Ggpzzwqogh35 [address] [place], [address] QUENTIN 56 U/L (Normal) Range: 25-115 20-Yul-55807:45 Urinalysis, Office (34465) UA - LEUKOCYTE ESTERASE Negative (Normal) UA - NITRITE Negative (Normal) URINE UROBILINGN NOREEN TIMED Normal mg/dL (Normal) UA - PROTEIN Negative mg/dL (Normal) UA - PH 6 (Abnormal) UA - BLOOD Non Hemolyzed Trace (Normal) UA - SPECIFIC GRAVITY 1.015 (Normal) UA - KETONES Negative mg/dL (Normal) UA - BILIRUBIN Negative (Normal) UA - GLUCOSE Negative (Normal) 00-Oim-836268:00 Pathology Report Comments: PERFORMED BY: [facility]SELECT [facility] LabCoUofL [facility] Cyto Mecma15717 [facility] [id number] Information: [id number] See MATER Comments: Material submitted: .SHAVE BIOPSY [...] ARE 4 PIECES TOTAL./CORCOR/CORPathologist provided ICD-10:L82.1, B07.8CPT .047686 9-Gpn-571240:50 Basic Metabolic Profile (BMP) Comments: DR TUCKER IS ORDERING THE BMPOrder Date: 06/28/16OV Order #: [id number] [facility] Owkibfyrnh10[address] [place], [address] GAP 9 (Normal) Range: 5-15 CO2 28.0 [...] 7-18 GLU 89 mg/dL (Normal) Range: 70-110 0-Iki-922493:50 Lipid Profile Comments: DR TUCKER IS ORDERING THE BMPOrder Date: 06/28/16OV Order #: [id number] Hospitals St. [facility] [address]vdsrkuxw9[address] [place], [address] VLDL 14 mg/dL (Normal) Range: 5-40 LDL [...] 200-240 mg/dL Borderline >240 mg/dL High Risk 5-Als-438104:50 Liver Profile Comments: DR TUCKER IS ORDERING THE BMPOrder Date: 06/28/16 Order #: [id number] Hospitals St. [facility] Smlcmhwtnp0[address] [place], [place], [address] D BILI 0.11 mg/dL (Normal) Range: 0.00-0.30 [...] ORDERING THE BMPOrder Date: 06/28/16 Order #: [id number] Hospitals St. John Medical Center Yameqkuayx[address] [place], [place], [address] T4 THYROXIN 12.8 ug/dL (Normal) Range: 4.8-13.9 7-Dpz-751218:50 Thyroid Stim Hormone (TSH) Comments: DR TUCKER IS ORDERING THE BMPOrder Date: 06/28/16 Order #: [id number] Hospitals St. [facility] Medical Center Tvfdqraevx119[address] [place], [place], [address] TSH 2.26 {uIU/mL} (Normal) Range: 0.358-3.74 62-Vwx-569853:26 URINE DAR CULTURE-IDENTIFICATN Comments: PATIENT NOT FASTINGPERFORMED BY: [facility] Tmflhe0907 [facility] [id number] Information: SRC:ANDREW ([id number]) Result 1 ECV (Abnormal) Comments: Escherichia coli, [...] S Urine Final report Culture,Comprehensi (Abnormal) ve :38 Urinalysis, Office (67005) UA - LEUKOCYTE ESTERASE Negative (Normal) UA - NITRITE Negative (Normal) URINE UROBILINGN NOREEN TIMED Normal mg/dL (Normal) UA - PROTEIN Negative mg/dL (Normal) UA - PH 5 (Abnormal) UA - BLOOD Hemolyzed Trace (Normal) UA - SPECIFIC GRAVITY 1.010 (Normal) UA - KETONES Negative mg/dL (Normal) UA - BILIRUBIN Negative (Normal) UA - GLUCOSE Negative (Normal) 45-Guz-653563:02 Comprehensive Metabolic Profil Comments: C[facility]. [facility] Pcfcrnrmnv9082 [address] [place], [place], [address] GAP 8 (Normal) Range: 5-15 CO2 27.0 [...] 7-18 GLU 85 mg/dL (Normal) Range: 70-110 18-Qez-120816:02 T4 Total, Thyroxin Comments: CMP IS FOR DR. [facility]aOhio[facility] Thisciwyye[address], [address] T4 THYROXIN 13.1 ug/dL (Normal) Range: 4.8-13.9 36-Okr-289653:02 Thyroid Stim Hormone (TSH) Comments: CMP IS FOR DR. KEARNEYTriHealth [facility] Ivrbancxvd6086 [place], [address] TSH 1.34 {uIU/mL} (Normal) Range: 0.358-3.74 :25 COLON BIOPSY (CHOOSE See Note (Normal) Comments: [facility] Bqzrkkbdhl84[address] [place], [id number] SITE) Comments: Patient: IRIS ARRIAGA : 1940 (76/F) Acct Num: [id number] Phys: Clifford Gifford Unit Num: [id number] Loc: EN Specimen: [id number] Received: 01/30/16849 Spec Type: COLON BX TISSUES TISSUES: GROSS DESCRIPTION Received is one container labeled with the patient name and designated mid ascending polyp. The specimen consists of two irregular fragments of light tansoft tissue that in aggregate measure 0.3 x 0.2 x 0.1 cm. The specimen is totally submitted in one cassette. / SJ:juan j 01/30/16 TC:5 CPT:43110 HEADER OPERATION: Colonoscopy PRE-OP DI AGNOSIS: Screening TISSUE SUBMITTED: Mid ascending polyp MICROSCOPIC DESCRIPTION Slides are reviewed. MICROSCOPIC DIAGNOSIS Mid ascending colon polyp, biopsy: Fragments of tubular adenoma. AM:juan j 01/31/16 Signed Abrahan [facility] 01/31/16 <signature on file> 82-Sfy-323300:12 Basic Metabolic Profile (BMP) Comments: ORDERED BMPDR.REINA ORDERED TSH T4 LIPID [facility] Wxlfkhsmab55[address] [place], [address] GAP 6 (Normal) Range: 5-15 CO2 27.0 [...] 7-18 GLU 78 mg/dL (Normal) Range: 70-110 09-Hih-824712:12 Lipid Profile Comments: ORDERED KIMBERELE ORDERED TSH T4 LIPID [facility] Nrzbmrqewg7938 [facility] [place], [place], [address] VLDL 15 mg/dL (Normal) Range: 5-40 LDL [...] 200-240 mg/dL Borderline >240 mg/dL High Risk 57-Hbv-596630:12 Liver Profile Comments: ORDERED KIMBERLEE ORDERED TSH T4 LIPID [facility] Iifxzsxeyk8884 [address] [place], [place], [address] D BILI 0.17 mg/dL (Normal) Range: 0.00-0.30 T BILI 0.50 mg/dL (Normal) Range: 0.20-1.00 ALT 37 U/L (Normal) Range: 12-78 ALK P 68 U/L (Normal) Range: 50-136 AST 26 U/L (Normal) Range: 15-37 GLOB 3.8 g/dL (Abnormal) Range: 2.3-3.5 ALB 3.5 g/dL (Normal) Range: 3.4-5.0 T PROT 7.3 g/dL (Normal) Range: 6.4-8.2 46-Afd-931850:12 T4 Total, Thyroxin Comments: ORDERED BMPDR.MOODISPAW ORDERED TSH T4 [facility] Ksdckferbx7966 [address] [place], [place], [address] T4 THYROXIN 14.3 ug/dL (Abnormal) Range: 4.8-13.9 31-Jdl-267395:12 Thyroid Stim Hormone (TSH) Comments: ORDERED BMPDR.[facility] CENTERISPAW ORDERED TSH T4 [facility] Fmvsypubyn7385 [facility] [place], [place], [address] TSH 2.32 {uIU/mL} (Normal) Range: 0.358-3.74 81-Gjb-47925:37 Rapid Flu (90295 x 2) Influenza A Ag neg (Normal) 75-Cka-516514:28 Metabolic Panel, Basic Comments: PATIENT NOT FASTINGPERFORMED BY: [facility] Ywesub2828 [facility] [id number] ([id number]) Calcium, Serum 8.7 mg/dL (Normal) Range: 8.7-10.3 [...] Glucose, Serum 70 mg/dL (Normal) Range: 65-99 73-Faj-979269:28 CBC (Auto) (00386) Comments: PATIENT NOT FASTINGPERFORMED BY: [address] [id number] Information: [id number] Platelets 224 {x10E3/uL} (Normal) Range: 150-379 RDW 14.8 % (Normal) Range: 12.3-15.4 MCHC 33.0 g/dL (Normal) Range: 31.5-35.7 MCH 31.9 pg (Normal) Range: 26.6-33.0 MCV 97 fL (Normal) Range: 79-97 Hematocrit 39.4 % (Normal) Range: 34.0-46.6 Hemoglobin 13.0 g/dL (Normal) Range: 11.1-15.9 RBC 4.08 {x10E6/uL} (Normal) Range: 3.77-5.28 WBC 8.1 {x10E3/uL} (Normal) Range: 3.4-10.8 93-Nmw-130453:51 URINE DAR CULTURE-IDENTIFICATN Comments: PATIENT NOT FASTINGPERFORMED BY: [place] [id number] [facility] [id number] Information: [id number] ([id number]) Result 1 MUG (Normal) Comments: Mixed urogenital flora2,000 Colonies/mL Urine Culture,Comprehensive Final report (Normal) 90-Jde-54032:28 Magnesium Comments: [facility] [address] [place], [address] MG 2.1 mg/dL (Normal) Range: 1.8-2.4 79-Oww-75364:28 Potassium Comments: [facility] [address] [place], [address] K 5.0 mmol/L (Normal) Range: 3.5-5.1 38-Fov-843655:12 LIPASE (60010) Comments: Test(s) Potassium, Serum called to Gina Vergara on 11/21/2015 at 03:54 ESTPATIENT NOT FASTINGPERFORMED BY: [address] [id number] Lipase, Serum 61 U/L (Abnormal) Range: 0-59 41-Icw-127382:12 AMYLASE (69841) Comments: Test(s) Potassium, Serum called to [facility] on 11/21/2015 at 03:54 ESTPATIENT NOT FASTINGPERFORMED BY: Athos6370 [facility] [id number] Amylase, Serum 84 U/L (Normal) Range: 31-124 16-Did-731391:20 Urinalysis, Office (37976) UA - LEUKOCYTE ESTERASE Trace (Normal) UA - NITRITE Negative (Normal) URINE UROBILINGN NOREEN TIMED Normal mg/dL (Normal) UA - PROTEIN 100 mg/dL (Normal) UA - PH 6.0 (Normal) Comments: 5.5 UA - BLOOD Negative (Normal) UA - SPECIFIC GRAVITY 1.030 (Abnormal) UA - KETONES 15 mg/dL (Abnormal) UA - BILIRUBIN Moderate (Normal) UA - GLUCOSE Negative (Normal) 15-Mpi-868305:12 Metabolic Panel, Basic Comments: Test(s) Potassium, Serum called to [facility] on 11/21/2015 at 03:54 ESTPATIENT NOT FASTINGPERFORMED BY: Motoratorlin6370 [facility] [id number] ([id number]) Calcium, Serum 8.9 mg/dL (Normal) Range: 8.7-10.3 [...] Comments: Specimen received hemolyzed. Clinical correlation indicated. 58-Xvb-270630:12 CBC WITH MANUAL DIFF Comments: Test(s) Potassium, Serum called to Gina Vergara on 11/21/2015 at 03:54 ESTPATIENT NOT FASTINGPERFORMED BY: [facility] Enxrfx5701 [facility] [id number] Information: [id number] (13640) Immature Grans (Abs) 0.0 {x10E3/uL} (Normal) Range: [...] 3.77-5.28 WBC 16.1 {x10E3/uL} (Abnormal) Range: 3.4-10.8 6-Hej-248824:50 Urinalysis, Complete Comments: Order Date: 11/15/15How was Urine Obtained? BANKING PIN ADJUSTER TO [facility] [address]og[address]zfgmd[address] [place], [address] HYALINE CAST 5-10 SEEN {/lpf} (Normal) Range: [...] (Normal) CLARITY Clear (Normal) COLOR Yellow (Normal) 3-Lgd-940364:00 Basic Metabolic Profile (BMP) Comments: [facility] Bgcwcpfhgx8325 [facility] [place], [place], [address] GAP 6 (Normal) Range: 5-15 CO2 24.0 [...] GLU 88 mg/dL (Normal) Range: 70-110 :00 CBC W/Diff, Automated Comments: [facility] [address]bujg[address] [place], [place], [address] SMEAR COMMENT SCANNED (Normal) Absolute Lymph 1.15 [...] 4.2-5.4 WBC 16.9 K/mm3 (Abnormal) Range: 4.4-11.0 9-Gre-165019:00 Lipase Comments: [facility] Oppbkmliyp6550 [facility] [address]. [place], [place], [address] LIPASE 446 U/L (Abnormal) Range: 73-393 0-Rwa-344424:00 Liver Profile Comments: [facility] [address] [place], [place], [address] D BILI 0.06 mg/dL (Normal) Range: 0.00-0.30 T BILI 0.40 mg/dL (Normal) Range: 0.20-1.00 ALT 94 U/L (Abnormal) Range: 12-78 ALK P 66 U/L (Normal) Range: 50-136 AST 76 U/L (Abnormal) Range: 15-37 Comments: Moderate Hemolysis, Result may be falsely increased. GLOB 4.0 g/dL (Abnormal) Range: 2.3-3.5 ALB 3.3 g/dL (Abnormal) Range: 3.4-5.0 T PROT 7.3 g/dL (Normal) Range: 6.4-8.2 5-Brj-231447:00 Thyroid Stim Hormone (TSH) Comments: [facility] [address]vqwrtbp[address] [place], [address] TSH 1.12 {uIU/mL} (Normal) Range: 0.358-3.74 0-Yzr-528886:18 Thyroid Stim Hormone (TSH) Comments: [facility] [address] [place], [address] TSH 0.59 {uIU/mL} (Normal) Range: 0.358-3.74 74-Eqr-934273:18 Pathology Report Comments: PERFORMED BY: KWCYT [facility] Cyto Hzizn89227 [facility] [id number] BY: INDYL [facility] [place] [id number] BY: LX [facility] Cqfpulj63811 [facility] [id number] Information: [id number] See MATER Comments: Material submitted: .SADA CHESTClinician provided ICD-10:D49.2Clinical history: .CHANGE LESION RED ITCH Note (Normal) Diagnosis:SHAVE CHEST:HYPERTROPHIC, INFLAMED ACTINIC KERATOSIS..EIS/09/01/2015 El ectronically signed: .Camila Bright MD, PathologistGross description: .SUBMITTED IN FORMALIN LABELED IRIS ARRIAGA AND YADI CROWLEY IS A FRAGMENT OF FERGUSON/YELLOW TISSUE THAT MEASURES0.6 X 0.5 X 0.4 CM. THE MARGINS ARE INKED YELLOW. THESPECIMEN IS BISECTED AND SUBMITTED IN TOTO.XJW/TMZPathologist provided ICD-10:L57.0CPT .586620 68-Qyv-921990:40 Basic Metabolic Profile (BMP) Comments: 'TROP' Serial specimen #1, #2, #3, or #4: [address] [place] [address] [address]av[address] [place], [address] GAP 7 (Normal) Range: 5-15 CO2 27.0 [...] 7-18 GLU 76 mg/dL (Normal) Range: 70-110 90-Nka-856382:40 BNP,B-Type NATRIURETIC PEPTIDE Comments: [facility] [address]qnjio[address] [place], [place], [address] B-TYPE HUMBLE PEP 406.4 pg/mL (Abnormal) Range: 0-100 35-Lyw-215183:40 CBC W/Diff, Automated Comments: [facility] Arjzjaxyae48[address] [place], [place], [address] Absolute Lymph 1.25 {X10_3/ul} (Normal) Range: 0.83-4.51 [...] 4.2-5.4 WBC 9.2 K/mm3 (Normal) Range: 4.4-11.0 00-Xfm-490904:40 Troponin-I Comments: 'TROP' Serial specimen #1, #2, #3, or #4: [address] [place] [address] H[address]jgtjllig6925 [place], [address] TROPONIN-I 0.03 ng/mL (Normal) Comments: TROPONIN-I EXPECTED VALUES <0.05 NEGATIVE 0.06 - 0.59 AT RISK OF NV > OR = 0.60 SUGGEST NV 97-Ajf-553586:25 Urinalysis, Complete Comments: Order Date: 08/09/15How was Urine Obtained? CLEAN [facility] Tdivmsrpbj7[address] [place], [address] MUCUS, URINE 0 SEEN {/hpf} [...] (Normal) CLARITY Clear (Normal) COLOR Straw (Normal) 45-Tpv-121509:26 Basic Metabolic Profile (BMP) Comments: 'TROP' Serial specimen #1, #2, #3, or #4: [address] [place] [address] Kyuhpawoee0061 [place], [address] GAP 4 (Abnormal) Range: 5-15 [...] 7-18 GLU 66 mg/dL (Abnormal) Range: 70-110 43-Ovo-136660:26 CBC W/Diff, Automated Comments: [facility] [address]ozemtkr04[address] [place], [address] SMEAR COMMENT SCANNED (Normal) Absolute Lymph 2.04 [...] 4.2-5.4 WBC 18.6 K/mm3 (Abnormal) Range: 4.4-11.0 58-Vhu-895550:26 Prothrombin Time w/INR Comments: [facility] Anmcpanhyx46[address] [place], [place], [address] INR 1.1 (Normal) PROTIME 14.0 s (Normal) Range: 11.7-14.9 15-Xfw-191084:26 Troponin-I Comments: 'TROP' Serial specimen #1, #2, #3, or #4: 1[facility] Njyshffdur7[address] [place], [address] TROPONIN-I < 0.02 ng/mL (Normal) Comments: TROPONIN-I EXPECTED VALUES <0.05 NEGATIVE 0.06 - 0.59 AT RISK OF NV > OR = 0.60 SUGGEST NV 81-Lbu-417965:02 Bilirubin, Direct Comments: ORDERED LIPID,LIVERDR.CLARY ORDERED CBCD,TSH,LIPID,CMP,[facility] Oqbkcsxufj4771 [address] [place], [place], [address] D BILI 0.15 mg/dL (Normal) Range: 0.00-0.30 80-Tak-145588:02 CBC W/Diff, Automated Comments: [facility] K[address]jglrsggu2[address] [place], [place], [address] Absolute Lymph 0.99 {X10_3/ul} (Normal) Range: 0.83-4.51 [...] 4.2-5.4 WBC 7.5 K/mm3 (Normal) Range: 4.4-11.0 91-Zmo-136748:02 Comprehensive Metabolic Comments: ORDERED LIPID,LIVERDRCLOVER ORDERED CBCD,TSH,LIPID,CMP,[facility] Mfaznchzop6361 [place], [place], [address] Profil GAP 8 (Normal) Range: 5-15 CO2 [...] 7-18 GLU 80 mg/dL (Normal) Range: 70-110 26-Nvd-107840:02 Lipid Profile Comments: ORDERED LIPID,LIVERDRCLOVER ORDERED CBCD,TSH,LIPID,CMP,[facility] Azffnzhmeo7047 [place], [address] VLDL 18 mg/dL (Normal) Range: 5-40 LDL [...] 200-240 mg/dL Borderline >240 mg/dL High Risk 40-Qgx-591820:02 Thyroid Stim Hormone Comments: ORDERED LIPID,LIVERDRCLOVER ORDERED CBCD,TSH,LIPID,CMP,[facility] Ikpjhfmcha8[address] [place], [address] (TSH) TSH 1.37 {uIU/mL} (Normal) Range: 0.358-3.74 24-Vpa-925217:02 Urinalysis, Complete Comments: How was Urine Obtained? CLEAN [facility] Gzxitqaoyl59[address] [place], [address] MUCUS, URINE 0 SEEN {/hpf} (Normal) BACTERIA [...] (Normal) CLARITY Clear (Normal) COLOR Straw (Normal) 66-Hvv-588343:40 Basic Metabolic Profile (BMP) Comments: REDRAW. PREVIOUS SPECIMEN REJECTED DUE TOHEMOLYSIS. 06/06/15 1526 Blanca [address] La Cruz[address] Ocpjlanbgm1796 [place], [place], [address] GAP 6 (Normal) Range: 5-15 CO2 28.0 [...] <126 mg/dLsuggests IMPAIRED HOMEOSTASIS per A.D.A. criteria. 62-Trx-961903:10 CBC W/Diff, Automated Comments: [facility] Ijrjexvoss59[address] [place], [place], [address] Absolute Lymph 1.33 {X10_3/ul} (Normal) Range: 0.83-4.51 [...] 4.2-5.4 WBC 9.3 K/mm3 (Normal) Range: 4.4-11.0 50-Yyo-944910:16 Renal function Panel Comments: PATIENT NOT FASTINGPERFORMED BY: [facility] Hvcqac2255 [facility] [id number] Information: [id number] (27485) Albumin, Serum 3.6 g/dL (Normal) Range: 3.5-4.8 [...] (Abnormal) Range: 65-99 Comments: Client Requested Flag :57 CK-MB Quantitative and Index Comments: Serial Specimen #1, #2 or #3? 2Comments: Should be drawn 2H after initial Troponin obtained'TROP' Serial specimen #1, #2, #3, or #4: 2Test performed at:[facility] P[address]urahxl[address] [place] [address] CPKMB 1.1 ng/mL (Normal) Range: 0.0-5.0 Comments: CK-MB and RI Interpretation MB Relative Index Non-AMI <or= 5 NA Indeterminate > 5 <or= 4 AMI > 5 > 4 CPK TOTAL 48 U/L (Normal) Range: 26-192 :57 Troponin-I Comments: Serial Specimen #1, #2 or #3? 2Comments: Should be drawn 2H after initial Troponin obtained'TROP' Serial specimen #1, #2, #3, or #4: 2Test performed at:[facility] [address] [place] [address] TROPONIN-I < 0.02 ng/mL (Normal) Comments: TROPONIN-I EXPECTED VALUES <0.05 NEGATIVE 0.06 - 0.59 AT RISK OF NV > OR = 0.60 SUGGEST NV :33 Comprehensive Metabolic Profil Comments: Test performed at:[facility] Osdtsiuqho31[address] [place] [address] GAP 6 (Normal) Range: 5-15 [...] Comments: Please note revised CREATININE reference range qejatlsnu64/22/2015. BUN 35 mg/dL (Abnormal) Range: 7-18 GLU 53 mg/dL (Abnormal) Range: 70-110 48-Lyd-149354:33 CRP Comments: Test performed at:[facility] [address]wmayyi[address] [place] [address] C-REACTIVE PROT < 2.90 mg/L (Normal) Range: 0.0-3.0 Comments: C-Reactive Protein (CRP) provides useful information for thediagnosis, therapy and monitoring of inflammatory processesand associated diseases. For the evaluation of Relative Riskfor Cardiovascular Dise ase, a High Sensitivity CRP (HSCRP)should be ordered. :33 Erythrocyte Sed Rate Comments: Test performed at:[facility] Oxvclumsgu5[address] [place] [address] SED RATE 7 mm/h (Normal) Range: 0-30 49-Ykg-178601:38 URINE DAR CULTURE-NOREEN COL Comments: PATIENT NOT FASTINGPERFORMED BY: MISHA [facility] Oixick[address] [place] [id number] Information: SRC:URC [id number] COUNT ([id number]) Result 1 NG36 (Normal) Comments: No growth in 36 - 48 hours. Urine Culture,Comprehensive Final report (Normal) 00-Ktw-099219:07 Urinalysis, Office (63574) UA - LEUKOCYTE ESTERASE Trace (Normal) UA - NITRITE Negative (Normal) URINE UROBILINGN NOREEN TIMED 2 mg/dL (Normal) UA - PROTEIN Negative mg/dL (Normal) UA - PH 5.0 (Normal) UA - BLOOD Negative (Normal) UA - SPECIFIC GRAVITY 1.015 (Normal) UA - KETONES Small mg/dL (Normal) UA - BILIRUBIN Negative (Normal) UA - GLUCOSE Negative (Normal) 08-Feb-20159:39 Pathology Report Comments: PERFORMED BY: Jelastic [facility] Cyto Xling72664 [facility] [id number] BY: [facility] Dermatopathology Lrfkinb[address] [id number] Information: [id number] See MATER Comments: Material submitted: .SHAVE BIOPSY [...] HOLOGIC CORRELATIONIS RECOMMENDED.02/13/2015Electronically signed: .Gege Reece MD, Floral topathologistGross description: .RECEIVED IS A CONTAINER LABELED IRIS ARRIAGA AND DESIGNATEDUPPER LESION ON CHEEK. IN FORMALIN IS A FERGUSON TISSUE MEASURING 4 X4 X 1 MM. IT IS INKED PURPLE, BISECTED, AND BOTH HALVES ARESUBMITTED IN A SINGLE CASSETTE.COR/BXSPathologist provided ICD-9:686.9, 682.0CPT .227435, 245776, 975817 29-Ktn-164025:29 T4 Total, Thyroxin Comments: PER PT ONLY TSH AND T4 TODAYTest performed at:[facility] Dy[address]jrn[address] [place] [address] T4 THYROXIN 13.2 ug/dL (Normal) Range: 4.8-13.9 [id number]-Isk-[id number]:29 Thyroid Stim Hormone (TSH) Comments: PER PT ONLY TSH AND T4 TODAYTest performed at:[facility] [address] [place] [address] 70274 TSH 3.74 {uIU/mL} (Normal) Range: 0.358-3.74 04-Rtm-[id number]:17 URINE DAR CULTURE-NOREEN COL Comments: PATIENT NOT FASTINGPERFORMED BY: [facility] [id number] [facility] [id number] Information: SRC: URINE COUNT ([id number]) Result 1 NG36 (Normal) Comments: No growth in 36 - 48 hours. Urine Culture,Comprehensive Final report (Normal) [id number] Urinalysis, Office (13816) UA - LEUKOCYTE ESTERASE Negative (Normal) UA - NITRITE Negative (Normal) URINE UROBILINGN NOREEN TIMED Normal mg/dL (Normal) UA - PROTEIN Negative mg/dL (Normal) UA - PH 6.0 (Normal) Comments: 5.5 UA - BLOOD Negative (Normal) UA - SPECIFIC GRAVITY 1.010 (Normal) UA - KETONES Negative mg/dL (Normal) UA - BILIRUBIN Negative (Normal) UA - GLUCOSE Negative (Normal) 40-Vfs-369824:31 Basic Metabolic Profile (BMP) Comments: Test performed at:[facility] [address] [place] [address]691 GAP 5 (Normal) Range: 5-15 CO2 27.0 mmol/L (Normal) Range: 21.0-32.0 CL 103 mmol/L (Normal) Range: 98-107 K 4.8 mmol/L (Normal) Range: 3.5-5.1 NA 135 mmol/L (Abnormal) Range: 136-145 CA 8.7 mg/dL (Normal) Range: 8.5-10.1 BUN/CRE 16.4 {RATIO} (Normal) Range: 10-20 CREAT,SERUM 1.1 mg/dL (Abnormal) Range: 0.6-1.0 BUN 18 mg/dL (Normal) Range: 7-18 GLU 89 mg/dL (Normal) Range: 70-110 51-Hoo-[id number]:31 Lipid Profile Comments: Test performed at:[facility] [address] [place] [address] 44691 VLDL 22 mg/dL (Normal) Range: 5-40 LDL [...] 200-240 mg/dL Borderline >240 mg/dL High Risk 11-Fgj-140988:31 Liver Profile Comments: Test performed at:[facility] [address] [place] [address] 44691 D BILI 0.10 mg/dL (Normal) Range: 0.00-0.30 T BILI 0.30 mg/dL (Normal) Range: 0.00-4.00 ALT 35 U/L (Normal) Range: 12-78 ALK P 85 U/L (Normal) Range: 50-136 AST 38 U/L (Abnormal) Range: 15-37 GLOB 3.6 g/dL (Normal) Range: 2.7-4.2 ALB 3.7 g/dL (Normal) Range: 3.4-5.0 T PROT 7.3 g/dL (Normal) Range: 6.4-8.2 57-Bnn-970263:31 T4 Total, Thyroxin Comments: Test performed at:[facility] [address] [place] [address] 13447 T4 THYROXIN 14.9 ug/dL (Abnormal) Range: 4.8-13.9 75-Cpb-535158:31 Thyroid Stim Hormone (TSH) Comments: Test performed at:[facility] [address] [place] [address] TSH 2.32 {uIU/mL} (Normal) Range: 0.358-3.74 20-Paf-552076:30 CBC W/Diff, Automated Comments: Test performed at:[facility] [address] [place] [address] 56431 Absolute Lymph 1.12 {X10_3/ul} (Normal) Range: 0.83-4.51 [...] 4.2-5.4 WBC 8.8 K/mm3 (Normal) Range: 4.4-11.0 27-Auf-370623:30 Urinalysis, Complete Comments: DR HUANG LIVER LIPID TSH T4 ONLYHow was Urine Obtained? CLEAN CATCHTest performed at:[facility] [address] [place], [place] [id number] HYALINE CAST 0-5 SEEN {/lpf} (Normal) Range: [...] CLARITY Sl. Cloudy (Normal) COLOR Yellow (Normal) 53-Vpd-898576:09 CBC W/Diff, Automated Comments: Test performed at:[facility] [address] [place] [address] Absolute Lymph 0.85 {X10_3/ul} (Normal) Range: 0.83-4.51 [...] 4.2-5.4 WBC 8.7 K/mm3 (Normal) Range: 4.4-11.0 86-Xds-730875:09 Comprehensive Metabolic Profil Comments: 'TROP' Serial specimen #1, #2, #3, or #4: 1Test performed at:[facility] [address] [place], [place] [address] GAP 5 (Normal) Range: 5-15 CO2 27.0 [...] <126 mg/dLsuggests IMPAIRED HOMEOSTASIS per A.D.A. criteria. 75-Hvq-097181:09 Troponin-I Comments: 'TROP' Serial specimen #1, #2, #3, or #4: 1Test performed at:[facility] [address] [place], [place] [id number] TROPONIN-I < 0.02 ng/mL (Normal) Comments: TROPONIN-I EXPECTED VALUES <0.05 NEGATIVE 0.06 - 0.59 AT RISK OF NV > OR = 0.60 SUGGEST NV 79-Bul-642556:21 Rapid Flu (97797 x 2) Influenza A Ag neg (Normal) 4-Qxe-585474:05 TSH 6.19 {uIU/mL} (Abnormal) Range: 0.358-3.74 30-Eoi-82624:54 CBCMD ANC 10.3 3/uL (Abnormal) Range: 2.0-7.7 [...] CHOL 151 mg/dL (Normal) Comments: <200 mg/dL Mwufmiyoz360-351 mg/dL Borderline>240 mg/dL High Risk :54 TSH 0.72 {uIU/mL} (Normal) Range: 0.358-3.74 53-Ofp-620510:37 Rapid Strep Test, Office (71922) Comments: neg Rapid Strep Test, Office Negative (Normal) 67-Ysg-082535:03 DAR CULTURE-OTHER (10913) Comments: PATIENT NOT FASTINGPERFORMED BY: [facility] CenterSlrijq4389 [facility] [id number] Information: SRC:THRT [id number] Result 1 RRF (Normal) Comments: Routine respiratory julia Upper Respiratory Culture Final report (Normal) 81-Uzu-750310:12 Urinalysis, Office (27166) UA - BILIRUBIN Negative (Normal) UA - BLOOD Hemolyzed Trace (Normal) UA - GLUCOSE Negative (Normal) UA - KETONES Negative mg/dL (Normal) UA - LEUKOCYTE ESTERASE Trace (Normal) UA - NITRITE Negative (Normal) UA - PH 6.0 (Normal) UA - PROTEIN Negative mg/dL (Normal) UA - SPECIFIC GRAVITY 1.010 (Normal) URINE UROBILINGN NOREEN TIMED 2 mg/dL (Normal) 21-Scs-665054:53 DEXA BONE DENSITY STUDY (HP) Radiology Report [...] Fink M.D.July 29, 2012 at 2:05:06 PM [phone] Signed GP/GP If you are the referring physician and would like to consult with theradiologist who provided this interpretation, please contact Aleida Osei at [phone]. If this radiologist is unavailable, youwil l [...] 07/29/12 1410 Sign by: Ed Fink MD 05-Kpv-419388:37 BILAT SCRN DIGITAL & CAD Radiology Report [...] Fink M.D.July 14, 2012 at 1:35:04 PM [phone] Signed GP/GP If you are the referring physician and would like to consult with theradiologist who provided this interpretation, please contact Aleida Osei at [phone]. If this radiologist is unavailable, youwill be directed to another radiologist to assist. If you are a patient with a questi on regarding this report, pleasecontactyour referring physician directly. Professional Interpretation Provided By: [employer] Phone , These documents contain legally prot [...] docum ents. Dictated on 07/09/12 1339 by Aleks TIRADO,Ronenranscribed on 07/14/12 1342 by ITS IMPORTSign by Ed Fink MD on 07/14/12 1343 Sign by: Ed Fink MD 22-Apr-2012 BID 0.10 mg/dL Comments: Order Date: 02/06/12OV Order #: [id number] ID: [id number] Comments: DX = 272.4 JLS [...] 12 hours, may have water.OV Order #: [id number] Order #: [id number] Comments: Reason:Interface Comments: DX = 427.31 [facility] 02/07/12OV Order #: [id number] Comments: DX = 428.0 [facility] 02/07/12 Range: 0.00-0.30 61-Wee-515662:57 CMP Comments: Order Date: 02/06/12OV Order #: [id number] ID: [id number] Comments: DX = 272.4 [facility] 02/07/12Diagnosis: V58.69 - LONG-TERM USE OF HIGH [...] 12 hours, may have water.OV Order #: [id number] Order #: [id number] Comments: Reason:Interface Comments: DX = 427.31 [facility] 02/07/12OV Order #: [id number] Comments: DX = 428.0 [facility] 02/07/12 GAP 6 (Normal) Range: 5-15 CL [...] 7-18 GLU 92 mg/dL (Normal) Range: 70-110 77-Gkp-297657:57 LIPID Comments: Order Date: 02/06/12OV Order #: [id number] ID: [id number] Comments: DX = 272.4 [facility] 02/07/12Diagnosis: V58.69 - LONG-TERM USE OF HIGH [...] 12 hours, may have water.OV Order #: [id number] Order #: [id number] Comments: Reason:Interface Comments: DX = 427.31 [facility] 02/07/12OV Order #: [id number] Comments: DX = 428.0 [facility] 02/07/12 VLDL 13 mg/dL (Normal) Range: 5-40 [...] 200-240 mg/dL Borderline >240 mg/dL High Risk :57 PHOS 4.0 mg/dL (Normal) Comments: Order Date: 02/06/12OV Order #: [id number] ID: [id number] Comments: DX = 272.4 S [...] 12 hours, may have water.OV Order #: [id number] Order #: [id number] Comments: Reason:Interface Comments: DX = 427.31 S 02/07/12OV Order #: [id number] Comments: DX = 428.0 S 02/07/12 Range: 2.5-4.9 :57 T4 12.6 ug/dL (Normal) Comments: Order Date: 02/06/12OV Order #: [id number] ID: [id number] Comments: DX = 272.4 S [...] 12 hours, may have water.OV Order #: [id number] Order #: [id number] Comments: Reason:Interface Comments: DX = 427.31 [facility] 02/07/12OV Order #: [id number] Comments: DX = 428.0 [facility] 02/07/12 Range: 4.8-13.9 01-Yma-714528:57 T4F 1.76 ng/dL (Abnormal) Comments: Order Date: 02/06/12OV Order #: [id number] ID: [id number] Comments: DX = 272.4 [facility] 02/07/12Diagnosis: V58.69 - LONG-TERM USE OF HIGH [...] 12 hours, may have water.OV Order #: [id number] Order #: [id number] Comments: Reason:Interface Comments: DX = 427.31 [facility] 02/07/12OV Order #: [id number] Comments: DX = 428.0 [facility] 02/07/12 Range: 0.76-1.46 49-Une-640647:57 TSH 2.47 {uIU/mL} (Normal) Comments: Order Date: 02/06/12OV Order #: [id number] ID: [id number] Comments: DX = 272.4 [facility] 02/07/12Diagnosis: V58.69 - LONG-TERM USE OF HIGH [...] 12 hours, may have water.OV Order #: [id number] Order #: [id number] Comments: Reason:Interface Comments: DX = 427.31 [facility] 02/07/12OV Order #: [id number] Comments: DX = 428.0 [facility] 02/07/12 Range: 0.358-3.74 72-Tfc-259460:47 CBCD Comments: DR. VERGARA ORDERED CMP, RENAL, [...] 4.2-5.4 WBC 6.7 K/mm3 (Normal) Range: 4.4-11.0 2-Pno-208738:21 CBCD ANC 5.1 3/uL (Normal) Range: 2.0-7.7 [...] 4.2-5.4 WBC 7.8 K/mm3 (Normal) Range: 4.4-11.0 1-Dwn-227249:21 LIPID Comments: ORDERED TSH LIPID T4DR.CLARY ORDERED [...] VALVE PROLAPSEDiagnosis: 272.4 - HYPERLIPIDEMIAOV Order #: [id number] ID: [id number] Order #: [id number] Comments: Reason:OV Order #: [id number] VLDL 10 mg/dL (Normal) Range: 5-40 LDL [...] 200-240 mg/dL Borderline >240 mg/dL High Risk 2-Vbq-866018:21 RENAL Comments: ORDERED TSH LIPID T4 ORDERED RENAL TSH CBCDInterface Comments: Interface Comments: [...] VALVE PROLAPSEDiagnosis: 272.4 - HYPERLIPIDEMIAOV Order #: [id number] ID: [id number] Order #: [id number] Comments: Reason:OV Order #: [id number] CO2 26.0 mmol/L (Normal) Range: 21.0-32.0 CL [...] 7-18 GLU 87 mg/dL (Normal) Range: 70-110 8-Bke-770048:21 T4 15.1 ug/dL (Abnormal) Comments: ORDERED TSH [...] VALVE PROLAPSEDiagnosis: 272.4 - HYPERLIPIDEMIAOV Order #: [id number] ID: [id number] Order #: [id number] Comments: Reason:OV Order #: [id number] Range: 4.8-13.9 9-Hoy-409092:21 TSH 1.69 {uIU/mL} (Normal) Comments: ORDERED TSH [...] VALVE PROLAPSEDiagnosis: 272.4 - HYPERLIPIDEMIAOV Order #: [id number] ID: [id number] Order #: [id number] Comments: Reason:OV Order #: [id number] Range: 0.358-3.74 17-Try-32597:57 BMP GAP 7 (Normal) Range: 5-15 CO2 [...] :57 TSH 2.61 {uIU/mL} (Normal) Range: 0.358-3.74 01-Pmf-688727:38 URINE DAR CULTURE-NOREEN COL Comments: PATIENT NOT FASTINGPERFORMED BY: [facility] Xgwlmk2592 [facility] [id number] Information: SRC: URINE COUNT (20485) Result 1 NG36 (Normal) Comments: No growth in 36 - 48 hours. Urine Culture,Comprehensive Final report (Normal) 10-Kqv-55972:42 Urinalysis, Office (22904) UA - BILIRUBIN Negative (Normal) UA - BLOOD Non Hemolyzed Trace (Normal) UA - GLUCOSE Negative (Normal) UA - KETONES Negative mg/dL (Normal) UA - LEUKOCYTE ESTERASE Trace (Abnormal) UA - NITRITE Negative (Normal) UA - PH 5.0 (Normal) UA - PROTEIN Negative mg/dL (Normal) UA - SPECIFIC GRAVITY 1.005 (Normal) URINE UROBILINGN NOREEN TIMED Normal mg/dL (Normal) 28-Uaf-838039:03 Urinalysis, Office (85816) UA - BILIRUBIN Negative (Normal) UA - BLOOD Hemolyzed Trace (Normal) UA - GLUCOSE Negative (Normal) UA - KETONES Negative mg/dL (Normal) UA - LEUKOCYTE ESTERASE Trace (Normal) UA - NITRITE Negative (Normal) UA - PH 5.0 (Normal) UA - PROTEIN Negative mg/dL (Normal) UA - SPECIFIC GRAVITY 1.010 (Normal) URINE UROBILINGN NOREEN TIMED Normal mg/dL (Normal) 5-Crl-716175:00 BMP Comments: GEMMA ORDERED BMP MG T4 [...] 7-18 GLU 88 mg/dL (Normal) Range: 70-110 5-Kkh-097562:00 LIPID Comments: GEMMA ORDERED BMP MG T4 [...] 200-240 mg/dL Borderline >240 mg/dL High Risk 2-Vtk-522985:00 LIVER Comments: GEMMA ORDERED BMP MG T4 [...] LIPIDBONEZZI ORDERED BMP TSH T4F Range: 1.5-2.2 7-Nfv-045380:00 T4 FREE DIRECT 1.69 ng/dL (Abnormal) Comments: GEMMA ORDERED BMP MG T4 TSH LIVER LIPIDBONEZZI ORDERED BMP TSH T4F Range: 0.76-1.46 0-Vfm-690042:00 T4 THYROXIN 14.3 ug/dL (Abnormal) Comments: GEMMA ORDERED BMP MG T4 TSH LIVER LIPIDBONEZZI ORDERED BMP TSH T4F Range: 4.8-13.9 8-Duz-893911:00 TSH 2.00 {uIU/mL} (Normal) Comments: GEMMA ORDERED BMP MG T4 TSH LIVER LIPIDBONEZZI ORDERED BMP TSH T4F Range: 0.358-3.74 8-Rlg-457852:46 Anaerobic and Aerobic Comments: PERFORMED BY: [facility]6[address] [facility] [id number] Information: SRC:EB RIGHT ELBOW Culture Result 1 NG36 (Normal) Comments: No growth in 36 - 48 hours. Aerobic Culture Final report (Normal) Result 1 NAAG72 (Normal) Comments: No aerobic or anaerobic growth in 72 hours. Anaerobic Culture Final report (Normal) 0-Ckm-503732:39 Urinalysis, Office (91825) UA - BILIRUBIN Negative (Normal) UA - BLOOD Negative (Normal) UA - GLUCOSE Negative (Normal) UA - KETONES Negative mg/dL (Normal) UA - LEUKOCYTE ESTERASE Negative (Normal) UA - NITRITE Negative (Normal) UA - PH 5.0 (Normal) UA - PROTEIN Negative mg/dL (Normal) UA - SPECIFIC GRAVITY 1.015 (Normal) URINE UROBILINGN NOREEN TIMED 2 mg/dL (Normal) 64-Tjx-77676:00 L/S SPINE,MIN 4 VIEWS Radiology Report See [...] 2.3 pg/mL (Normal) Comments: ORDERED T4 T3 TSHDRCLOVER ORDERED TSH TPO T3F T4F 2:06 Range: 2.18-3.98 [place] 6676 40 {IU/mL} Comments: ORDERED T4 T3 TSHDRCLOVER ORDERED TSH TPO T3F T4F 2:06 (Abnormal) Range: 0-34 Comments: Performed at: [address] [id number] Director: Bella Taylor MD, Phone: [phone] T3 TOTAL 0.8 ng/mL (Normal) Comments: ORDERED T4 T3 TSHDRCLOVER ORDERED TSH TPO T3F T4F 2:06 Range: 0.7-1.9 T4 FREE DIRECT 1.35 ng/dL (Normal) Comments: ORDERED T4 T3 TSHDR.BONEZZI ORDERED TSH TPO T3F T4F 2:06 Range: 0.76-1.46 T4 THYROXIN 13.2 ug/dL (Normal) Comments: ORDERED T4 T3 TSHDR.BONEZZI ORDERED TSH TPO T3F T4F 2:06 Range: 4.8-13.9 TSH 4.31 {uIU/mL} Comments: ORDERED T4 T3 TSHDR.BONEZZI ORDERED TSH TPO T3F T4F 2:06 (Abnormal) Range: 0.358-3.74 70-Shd-485209:13 BMP GAP 12 (Normal) Range: 5-15 CO2 [...] 7-18 GLU 95 mg/dL (Normal) Range: 70-110 34-Wya-948688:13 CBCD ABSOLUTE NEUT 5.1 3/uL (Normal) Range: [...] 4.2-5.4 WBC 7.1 K/mm3 (Normal) Range: 4.4-11.0 22-Vjj-722400:34 Vaginitis/Vaginosis, DNA Probe Comments: PERFORMED BY: [facility] Lhbgnu1265 [facility] [id number] Information: SRC:CE Gardnerella vaginalis Negative (Normal) Trichomonas [...] Visit for suture removal Concussion : Reviewed Diaper Folder Letter Indication: Concussion Fall, accidental : Reviewed Diaper Folder Letter Indication: Fall, accidental Fall, accidental : [...] Bronchitis Cerumen impaction : Follow up in with [facility] for ear irrigation Indication: Cerumen impaction Bronchitis [...] tract infection, unspecified type Planned Observations TSH (02646)Indication: Memory impairment On: 00-Igz-109264:11 Request AMMONIA (46880)Indication: Memory impairment On: :11 Request Methymalonic Acid, Serum (79916)Indication: Memory impairment On: :11 Request VITAMIN B-12 (CYANOCOBALAMIN) (22054)Indication: Memory impairment On: :11 Request FOLIC ACID SERUM (22326)Indication: Memory impairment On: 49-Pjx-350614:11 Request METABOLIC PANEL, COMPREHENSIVE (89158)Indication: Coronary artery disease On: 74-Fnq-782080:02 Request Comments: fax copy to SHAWN Bonilla, [facility] (80110)Indication: Coronary artery disease On: :02 Request CALCIFIDIOL (92729) VIT D 25Indication: Vitamin D deficiency On: 73-Kyo-644460:02 Request Metabolic Panel, Comprehensive (02945)Indication: Hypokalemia On: 12-Nov-2017 Request Comments: fax a copy to Dr. Tucker [phone] Huang [phone] MAGNESIUM (91649)Indication: Hypokalemia On: 4-Inl-218592:03 Request Metabolic Panel, Comprehensive (14807)Indication: Hypokalemia On: 7-Zkn-419415:02 Request Comments: fax a copy to Dr. Caitlin May [phone] Huang [phone] Metabolic Panel, Comprehensive (97847)Indication: Hypokalemia On: 05-Nov-2017 Request Comments: fax a copy to Dr. Caitlin May [phone] Huang [phone] Metabolic Panel, Comprehensive (29978)Indication: Hypokalemia On: 29-Oct-2017 Request Comments: fax a copy to Dr. Caitlin May [phone] Huang [phone] Metabolic Panel, Comprehensive (51177)Indication: Hypokalemia On: 22-Oct-2017 Request Comments: fax a copy to Dr. Caitlin May [phone] Huang [phone] Metabolic Panel, Comprehensive (44102)Indication: Hypokalemia On: 15-Oct-2017 Request Comments: fax a copy to Dr. Tucker [phone] Huang [phone] Metabolic Panel, Comprehensive (67369)Indication: Hypokalemia On: 08-Oct-2017 Request Comments: fax a copy to Dr. Caitlin May [phone] Huang [phone] Metabolic Panel, Comprehensive (41789)Indication: Hypokalemia On: 01-Oct-2017 Request Comments: fax a copy to Dr. Caitlin May [phone] Huang [phone] Metabolic Panel, Comprehensive (09426)Indication: Hypokalemia On: 24-Sep-2017 Request Comments: fax a copy to Dr. Caitlin May [phone] Huang [phone] Renal function Panel (24441)Indication: Renal insufficiency (Renamed from Renal function impairment) On: 22-Pdb-577491:23 Request URIC ACID BLOOD (72493)Indication: Abnormal laboratory test On: 90-Xeg-680469:53 Request Metabolic Panel, Comprehensive (14871)Indication: Hypokalemia On: 17-Sep-2017 Request Comments: fax a copy to Dr. Caitlin May [phone] Huang [phone] Metabolic Panel, Comprehensive (58491)Indication: Hypokalemia On: 10-Sep-2017 Request Comments: fax a copy to Dr. Caitlin May [phone] Huang [phone] Metabolic Panel, Basic (74544)Indication: Cardiomyopathy On: 94-Hnw-142891:02 Request Comments: now stat and prn CREATININE BLOOD (43362)Indication: Left leg swelling On: 17-Gbf-071936:05 Request Metabolic Panel, Basic (17130)Indication: Renal insufficiency (Renamed from Renal function impairment) On: 38-Pep-306897:16 Request Comments: re check in 4 weeks T4, FREE (THYROXINE) (18719)Indication: Hypothyroidism On: 13-Bau-467878:49 Request CALCIFIDIOL (67740) VIT D 25Indication: Vitamin D deficiency On: 13-Rxe-948092:47 Request TSH (THYROID STIMULATING HORMONE) (54884)Indication: Hypothyroidism On: 83-Gfb-227116:46 Request CREATININE BLOOD (18260)Indication: Abdominal pain, acute On: 08-Qnc-966253:34 Request Metabolic Panel, Basic (66824)Indication: Abdominal pain, acute On: :31 Request T4, FREE (THYROXINE) (84613)Indication: Hypothyroidism On: :30 Request TSH (43363)Indication: Hypothyroidism On: :30 Request METABOLIC PANEL, COMPREHENSIVE (02261)Indication: DVT, bilateral lower limbs On: :48 Request PTT (Activated Partial Thromboplastin Time) (53645)Indication: DVT, bilateral lower limbs On: :29 Request PT (Prothrobim Time) (99755)Indication: DVT, bilateral lower limbs On: :29 Request Factor 2 (Prothrombin) Gene Mutation (47890)Indication: DVT, bilateral lower limbs On: :29 Request Factor V Leiden (19640)Indication: DVT, bilateral lower limbs On: 11-Jvi-512269:28 Request Antiphospholipid atb (56610)Indication: DVT, bilateral lower limbs On: :28 Request CBC, Platelets & Auto Diff (45985)Indication: Abdominal pain, acute On: :38 Request Comments: coipy to Dr. jessie armendariz stat HEPATIC FUNCTION PANEL (60930)Indication: Abdominal pain, acute On: :37 Request Comments: to stat copy to Dr. natalie armendariz Metabolic Panel, Comprehensive (32635)Indication: Abdominal pain, acute On: 22-Psc-77090:23 Request Comments: all STAT Sed Rate Erythrocyte (80285)Indication: Abdominal pain, acute On: :19 Request CBC, Platelets & Auto Diff (09600)Indication: Abdominal pain, acute On: :19 Request Ferritin (06614)Indication: Abnormal RBC indices On: :08 Request CALCIFEDIOL (00013)Indication: Vitamin D deficiency On: 89-Jhs-67343:02 Request Folic Acid Serum (64898)Indication: Memory impairment On: :35 Request Methymalonic Acid, Serum (65193)Indication: Memory impairment On: :35 Request Vitamin B-12 (cyanocobalamin) (63671)Indication: Memory impairment On: :35 Request Metabolic Panel, Basic (97118)Indication: Cardiomyopathy in other diseases classified elsewhere On: 1-Mgf-472518:43 Request Urinalysis, Office (63767)Indication: Abdominal pain, acute On: 33-Igq-691419:47 Request URINE DAR CULTURE-IDENTIFICATN (41066)Indication: Abdominal pain, acute On: 51-Sui-378212:20 Request TSH (86114)Indication: Hypothyroidism On: 66-Fsz-963279:50 Request Comments: 8 weeks TSH (53831)Indication: Hypothyroidism On: :58 Request URINALYSIS, W/ MICRO (55956)Indication: Coronary artery disease On: :57 Request METABOLIC PANEL, COMPREHENSIVE (13395)Indication: Coronary artery disease On: :57 Request LIPID PANEL (14141)Indication: Coronary artery disease On: :57 Request CBC with auto diff (75949)Indication: Coronary artery disease On: 97-Ilu-603133:57 Request C-REACTIVE PROTEIN (52920)Indication: Abdominal pain, acute, generalized On: :31 Request Comments: stat CBC W/AUTO DIFF WBC (88761)Indication: Abdominal pain, acute, generalized On: :31 Request Comments: stat METABOLIC PANEL, COMPREHENSIVE (63609)Indication: Abdominal pain, acute, generalized On: 64-Uro-771184:31 Request Comments: stat SED RATE ERYTHROCYTE (15712)Indication: Abdominal pain, acute, generalized On: :26 Request CBC with auto diff (82619)Indication: Cardiomyopathy On: :59 Request Comments: copy to Dr. valerio URINALYSIS, W/ MICRO (43433)Indication: Cardiomyopathy On: :58 Request METABOLIC PANEL, COMPREHENSIVE (30818)Indication: Cardiomyopathy On: :58 Request LIPID PANEL (09669)Indication: Cardiomyopathy On: :58 Request TSH (15609)Indication: Hypothyroidism On: :58 Request CBC W/AUTO DIFF WBC (91071)Indication: Coronary artery disease On: :08 Request Comments: copy to cardiology TSH (30980)Indication: Hypothyroidism On: :08 Request URINALYSIS, W/ MICRO (79935)Indication: Coronary artery disease On: :08 Request METABOLIC PANEL, COMPREHENSIVE (70444)Indication: Coronary artery disease On: :08 Request LIPID PANEL (40151)Indication: Coronary artery disease On: :08 Request METABOLIC PANEL, COMPREHENSIVE (71728)Indication: Coronary artery disease On: 49-Jgu-982300:15 Request Comments: 05-24 CBC WITH MANUAL DIFF (00266)Indication: Coronary artery disease On: 00-Dhr-195805:15 Request Comments: 05-24 TSH (33086)Indication: Hypothyroidism On: 37-Ero-382069:13 Request TSH (79834)Indication: Hypothyroidism On: 60-Oqt-930641:18 Request CBC WITH MANUAL DIFF (05358)Indication: Coronary artery disease On: 0-Eps-502771:11 Request Comments: copy to [facility] URINALYSIS, W/ MICRO (94166)Indication: Coronary artery disease On: 6-Urx-178580:11 Request METABOLIC PANEL, COMPREHENSIVE (82579)Indication: Coronary artery disease On: 6-Ahq-301221:11 Request LIPID PANEL (96093)Indication: Coronary artery disease On: 7-Wip-681043:11 Request TSH (60994)Indication: Hypothyroidism On: 7-Biw-142537:11 Request TSH (63136)Indication: Hypothyroidism On: 88-Rpa-405349:02 Request METABOLIC PANEL, COMPREHENSIVE (65913)Indication: Cardiomyopathy On: 15-Ucw-989334:02 Request LIPID PANEL (21838)Indication: Cardiomyopathy On: 21-Wjc-338088:02 Request CBC WITH MANUAL DIFF (23082)Indication: Cardiomyopathy On: 68-Npd-157517:02 Request TSH (53224)Indication: Hypothyroidism On: :29 Request Renal function Panel (97728)Indication: Renal insufficiency (Renamed from Renal function impairment) On: :29 Request CBC (Auto) (69117)Indication: Cardiomyopathy On: 45-Kgo-787781:40 Request Metabolic Panel, Comprehensive (81576)Indication: Cardiomyopathy On: :40 Request T4, FREE (THYROXINE) (44867)Indication: Hypothyroidism On: :39 Request TSH (09217)Indication: Hypothyroidism On: :39 Request TSH (87611)Indication: Hypothyroidism On: :09 Request CBC (Auto) (81474)Indication: Cardiomyopathy On: : Request Renal function Panel (44145)Indication: Cardiomyopathy On: : Request Metabolic Panel, Basic (41896)Indication: Cardiomyopathy On: :03 Request T4, FREE (THYROXINE) (82434)Indication: Hypothyroidism On: :03 Request TSH (06806)Indication: Hypothyroidism On: :03 Request Metabolic Panel, Basic (05249)Indication: Renal insufficiency (Renamed from Renal function impairment) On: :36 Request T4, FREE (THYROXINE) ([id number])Indication: Hypothyroidism On: :35 Request TSH ([id number])Indication: Hypothyroidism On: :35 Request DAR CULTURE-OTHER ([id number])Indication: Bursitis, olecranon On: :18 Request Comments: olecranon bursa Metabolic Panel, Basic ([id number])Indication: Hyperlipemia On: 82-Ose-834348:09 Request Metabolic Panel, Basic ([id number])Indication: Gastroenteritis On: 33-Gcu-598453:56 Request Comments: stat CBC (Auto) ([id number])Indication: Gastroenteritis On: 23-Kta-487590:56 Request Metabolic Panel, Basic ([id number])Indication: Cardiomyopathy On: 29-Vjp-741734:53 Request TSH ([id number])Indication: PVT (paroxysmal ventricular tachycardia) On: 22-Uwk-269001:53 Request URINALYSIS ([id number])Indication: Cardiomyopathy On: 74-Gmn-475710:53 Request CBC (Auto) ([id number])Indication: Cardiomyopathy On: 18-Ydp-446322:53 Request INFCT ANTGN TRICH VAGIN DIRECT PRB ([id number])Indication: Vaginal discharge On: 61-Rca-795224:31 Request GARDNERELLA VAG, NUCLEIC ACID DIR PROBE ([id number])Indication: Vaginal discharge On: :31 Request ILEANA, NUCLEIC ACID DIRECT PROBE ([id number])Indication: Vaginal discharge On: [id number] Request Planned Encounters Medical; [facility] 2 Month FU - On: 06-Jul-2018 10:15 [facility] Clary TIRADO, Minerva Oseguera MD Planned Procedures Flu Vaccine (Quadrivalent) On: 01-Jun-2018 Intent [id number]: Visit, Nurse Comments: Lot #[id number]/30/2019Site-L dltd, IMDose prefilled syringegiven by:SORAIDA Calloway reviewed and ABN signed Aerosol Treatment ([id number])By: On: 08-Jan-2018 Intent Minerva Vergara MD, MD, Dana M SCREENING DIGITAL On: 23-Sep-2017 Intent TOMOSYNTHESIS OF BREAST ([id number])By: Clary TIRADO, Minerva Oseguera MD Venous Doppler - LowerBy: On: 23-Sep-2017 Intent Minerva Vergara MD Comments: lower left extremity follow up on DVT from 07-27 due october Minerva TIRADO CTA ABDOMEN AND PELVIS On: 28-Jul-2017 Intent INCLUDING IMAGE POSTPROCESSING ([id number])By: Minerva Vergara MD, MD, Dana M VENOUS DOPPLER LOWER On: 28-Jul-2017 Intent EXTREMITY ([id number])By: Clary Comments: upper and lower left legcall results to [phone] Minerva TIRADO MD, Dana M Radiology - ChestBy: Clary On: 04-Apr-2017 Intent Minerva TIRADO MD, Dana M Comments: follow up in [address] - Abdomen & Pelvis (IV On: 03-Jan-2017 Intent Contrast Needed)By: Clary Comments: also assure oral contrast. copy to Dr. montez. Minerva TIRADO MD, Dana M PFT - CompleteBy: Clary TIRADO, On: 16-Dec-2016 Intent Minerva Oseguera MD XR ABDOMEN FLAT PLATE AND On: 04-Dec-2016 Intent ERECT ([id number])By: Ida Quiñonez DO CT - Chest (IV Contrast On: 04-Dec-2016 Intent Needed)By: Ida Quiñonez DO Comments: pe protocol today CT - Abdomen (Without On: 25-Nov-2016 Intent Contrast)By: Minerva Vergara MD, MD, Dana M Spirometry ([id number])By: On: 31-Oct-2016 Intent Minerva Vergara MD Comments: see scanned document of test done to see results reviewed today with patient Minerva TIRADO Radiology - ChestBy: Clary On: 31-Oct-2016 Intent Minerva TIRADO MD, Dana M Comments: call wet read Radiology - KUBBy: Clary On: 31-Oct-2016 Intent Minerva TIRADO MD, Dana M Comments: upright. call wet read to [phone] Bone Density StudyBy: Clary On: 29-Jul-2016 Intent Minerva TIRADO MD, Dana M MAMMOGRAM, BILATERAL On: 29-Jul-2016 Intent ([id number])By: Minerva Vergara MD, MD, Dana M Flu Vaccine (Quadrivalent) On: 09-May-2016 Intent [id number]: Slarb PROJECT TECHNICIAN Meka ELECTROCARDIOGRAM, COMPLETE On: 09-Aug-2015 Intent (ECG) ([id number])By: Memo Armendariz CNP Radiology - ChestBy: Clary On: 17-Jul-2015 Intent Minerva TIRADO MD, Dana M Aerosol Treatment ([id number])By: On: 14-Jul-2015 Intent Minerva Vergara MD, MD, Dana M Aerosol Treatment ([id number])By: On: 29-May-2015 Intent Slarb PROJECT TECHNICIAN, Meka ADMINISTRATION OF INFLUENZA On: 25-Apr-2015 Intent VIRUS VACCINE ([id number])By: Minerva Vergara MD, MD, Dana M Flu Vaccine (Quadrivalent) On: 25-Apr-2015 Intent [id number]: Minerva Vergara MD Comments: lot: [id number]: 01/08/16ite/route: L del/IMamt: 0.5mLVIS signed when applicableИВАН Rodriguez MD, Dana M ACUTE ABDOMINAL SERIES On: 27-Mar-2015 Intent ([id number])By: Ida Quiñonez DO Comments: stat call wet read INFUSION, NORMAL SALINE On: 04-Nov-2014 Intent SOLUTION , 1000 CC (Special Comments: only 500 ccIV Therapy ossaaedax09N, 1 inchSite: r acTolerated: well, x 2nd attempt. L ac infiltrated and rpessure applied then covered with gauze and bandageno redness or swelling, no s/s infiltrationMegan, PROJECT TECHNICIAN Coverage Instructions Apply. See MCM: 2049) ([id number])By: Minerva Vergara MD, MD, Dana M Radiology - KUBBy: Clary On: 04-Nov-2014 Intent Minerva TIRADO MD, Dana M Comments: do today and call over wet read Radiology - Shoulder - On: 04-Nov-2014 Intent RightBy: Minerva Vergara MD, MD, Dana M Wax CurettesBy: Clary TIRADO, On: 15-Sep-2014 Intent Minerva Oseguera MD Ear Irrigation ([id number])By: On: 15-Sep-2014 Intent Minerva Vergara MD, MD, Dana M Radiology - Shoulder - On: 15-Sep-2014 Intent RightBy: Minerva Vergara MD, MD, Dana M Radiology - ChestBy: Clary On: 15-Sep-2014 Intent Minerva TIARDO MD, Dana M Comments: by next week if not better with atb Aerosol Treatment ([id number])By: On: 01-Sep-2014 Intent Memo Armendariz CNP DEXA SCAN AXIAL SKELETON On: 18-Feb-2014 Intent ([id number])By: Minerva Vergara MD, MD, Dana M MAMMOGRAM, SCREENING, BOTH On: 18-Feb-2014 Intent BREAST ([id number])By: Clary TIRADO, Minerva Vergara MD, Minerva Painting INFUSION, NORMAL SALINE On: 29-Oct-2013 Intent SOLUTION , 250 CC (Special Coverage Instructions Apply. See MCM: 2049) ([id number])By: Tiera Carmen DO IV Needle placement On: 29-Oct-2013 Intent (10511)By: Kermit WEBER, Comments: 3rd attempt successful in R Kristy RJ Tiera IV Infusion ([id number])By: Kermit On: 29-Oct-2013 Intent Tiera WEBER Eprescribed prescriptions On: 29-Oct-2013 Intent (G8553)By: Tiera Carmen DO Aerosol Treatment ([id number])By: On: 29-Oct-2013 Intent Tiera Carmen DO Solu- Medrol Injection, 125mg On: 29-Oct-2013 Intent (J2930)By: Kermit WEBER, Comments: lot: [id number]: 12/23site/route: RGM/IMamt:2mLVIS signed when applicableChelsea, ИВАН Tiera Eprescribed prescriptions On: 26-Oct-2013 Intent (G8553)By: Clary TIRADO, Minerva Oseguera MD Wax CurettesBy: [employer] COMPANY ACCOUNTANT, On: 22-Oct-2013 Intent Saba Ear Irrigation ([id number])By: On: 22-Oct-2013 Intent [employer] ACCOUNTANT, Saba Eprescribed prescriptions On: 25-Jun-2013 Intent (G8553)By: Jeanne Gil LPN Wax CurettesBy: Clary TIRADO, On: 18-Jun-2013 Intent Minerva Oseguera MD Ear Irrigation ([id number])By: On: 18-Jun-2013 Intent Clary TIRADO, Minerva Oseguera MD Eprescribed prescriptions On: 18-Jun-2013 Intent (G8553)By: Jeanne Gil LPN MAMMOGRAM, SCREENING, BOTH On: 16-Mar-2013 Intent BREASTS ([id number])By: Clary Comments: 06-23 maddi TIRADO, Minerva Vergara MD, Minerva Painting Wax CurettesBy: Clary TIRADO, On: 16-Mar-2013 Intent Minerva Oseguera MD Ear Irrigation (63156)By: On: 16-Mar-2013 Intent Minerva Vergara MD, MD, Dana M Inhaler Demonstration On: 15-Feb-2013 Intent (20004)By: Memo Armendariz CNP Aerosol Treatment (40650)By: On: 15-Feb-2013 Intent Memo Armendariz CNP Eprescribed prescriptions On: 08-Dec-2012 Intent (G8553)By: Jeanne Gil LPN Aerosol Treatment ([id number])By: On: 03-Dec-2012 Intent Minerva Vergara MD, MD, Dana M Pulse Oximetry ([id number])By: On: 03-Dec-2012 Intent ARON Lawrence Wax CurettesBy: Kala HAZEL, On: 25-Nov-2012 Intent Memo Weeks Ear Irrigation ([id number])By: On: 25-Nov-2012 Intent Memo Armendariz CNP SPECIMEN HNDLNG/TRNSPRT, OFFC On: 25-Nov-2012 Intent > LAB ([id number])By: Nova Posadas LPN Breast Screening - On: 28-Apr-2012 Intent BilateralBy: Minerva Vergara MD, MD, Dana M Bone Density StudyBy: Clary On: 28-Apr-2012 Intent Minerva TIRADO MD, Dana M Aerosol Treatment ([id number])By: On: 28-Apr-2012 Intent Minerva Vergara MD, MD, Dana M TDAP VACCINE >7 IM ([id number])By: On: 06-Feb-2012 Intent Sneha Vasquez doppler/ultrasound - right On: 20-Jan-2012 Intent calfBy: Minerva Vergara MD Comments: attention subcutaneous mass, history of clots Minerva Vergara MD Ear Irrigation ([id number])By: On: 11-Oct-2011 Intent Minerva Vergara MD Comments: med amt of wax removed from the left ear. small amt of wax removed from the right ear. pt tolerated well. Minerva TIRADO Wax CurettesBy: Clary TIRADO, On: 11-Oct-2011 Intent Minerva Oseguera MD Aerosol Treatment ([id number])By: On: 08-Oct-2011 Intent Kala HAZEL Saba Aerosol Treatment ([id number])By: On: 04-Oct-2011 Intent Kala HAZEL Saba EKG ([id number])By: Clary TIRADO, On: 15-Aug-2011 Intent Minerva Oseguera MD Comments: see scanned document. Nerve ConductionBy: Clary On: 29-Jul-2011 Intent Minerva TIRADO MD, Dana M Comments: lower leg EMGBy: Minerva Vergara MD On: 29-Jul-2011 Intent Minerva Vergara MD Solu -Medrol Injection, 125 On: 16-Apr-2011 Intent mg (J2930)By: Kala HAZEL, Comments: Lot:[id number]:sep 11 2013Amt:125mgRoute:IMSite:right hip Given By: RJ Soriano THER/PROPH/DIAG IV INF, INIT On: 15-Feb-2011 Intent (44552)By: Minerva Vergara MD, MD, Dana M Rocephin [...] Minerva TIRADO MD, Dana M Pulse Oximetry ([id number])By: On: 03-Sep-2010 Intent ARON Lawrence Radiology - Lumbar SpineBy: On: 29-Aug-2010 Intent Ida Quiñonez DO Comments: call wet read Venous Doppler - LeftBy: On: 23-Jul-2010 Intent Minerva Vergara MD Comments: leg. send copy Dr. Thompson in [place] orthosx Minerva TIRADO HYDRATION IV INFUSION, INIT On: 28-Jun-2010 Intent ([id number])By: Minerva Vergara MD Comments: only gave 500 cc of LR with CMP historyLot #:[id number] date:mount given:500ml Route: IVSite given:left wrist Given by: [employer] Holdingsssell Butterfly needle placed to left wrist with minimal difficulty 500ml LR infused Minerva Vergara MD Planned Medications INFUSION, NORMAL SALINE SOLUTION , 1000 CC Ordered: 04-Nov-2014 Pending Minerva Vergara MD, MD, Dana M INFUSION, NORMAL SALINE SOLUTION , 250 CC Ordered: 29-Oct-2013 Pending Tiera Carmen DO INJECTION, CEFTRIAXONE SODIUM, PER 250 MG Ordered: 15-Feb-2011 Pending Minerva Vergara MD, MD, Dana M INJECTION, METHYLPREDNISOLONE SODIUM SUCCINATE, UP TO 125 MG Ordered: 16-Apr-2011 Pending Memo Armendariz CNP INJECTION, METHYLPREDNISOLONE SODIUM SUCCINATE, UP TO 125 MG Ordered: 29-Oct-2013 Pending Kermit WEBER Tiera INJECTION, TRIAMCINOLONE ACETONIDE, NOT OTHERWISE SPECIFIED, [...] Pending Minerva Vergara MD, MD, Dana M Instructions Name Dates Details Encounter for Medicare [...] The patient does have durable power of research attorney and living will. The patient has noticed nothing from the geriatic depression scale. Other providers contributing to the patient's care are transfer knitter and other: (Dr. Tucker [facility]). Encounter Diagnosis: [...] cancer screening up to date- drove to [place] few weeks ago- no family hx of [...] episode on 07-22 to End: 02-Aug-2015 10:01 12 , complicated by previous URI on doxycycline, [...] and sees pacemaker nurse next month and moodfely in August). Patient sleeps 8 hours per [...] from that visit - done with the rehana and has 2 days lef End: 19-Mar-2013 [...] past 6 months, gotten lost, has a medalert neckla ce or bracelet or put area rugs through house. The patient does have durable power of research attorney and living will. The patient has noticed having problems with memory than others and lack of energy. Other providers contributing to the patient's care are transfer knitter (Reina) and other: (eye doctor - has [...] [facility] End: 19-Apr-2011 10:08 [facility] [place], [place] ) . There have been no [...] 15:33 [facility] Payers Hum//Medicare Adv [place] ARRIAGA; guru guarantor
--- OUTSIDE RECORDS SUMMARY | 2018-09-02 18:00 | XMS RPT_ITS | Continuity of Care Document ---
:1940 Author Organization [facility] Address [facility]7 [facility] 2 [place] [address] Phone Care Team Providers Name Role Phone Clary TIRADO, Minerva Painting Unavailable Dr. Les Montez Unavailable Riki TIRADO, Crispin Tucker Unavailable Ирина TIRADO, Clifford Benites Unavailable Caitlin TIRADO, Dr. Meka Painting Unavailable Kala TIRADO, Alejandro Fuentes Unavailable Jeremie Schultz Unavailable Tiffanie Saha Unavailable ARON Lawrence Unavailable [...] left leg wtih DVT or overall fluid [id number] 20% Status: Active Constipation (K59.00, 564.00) Comments: right now good on amitiza at night and miralax in pm will add fiber in evening to help Status: Active Coronary artery disease (I25.10, 414.00) Comments: reviewed with patient specialist's note stable Status: Active Current nonsmoker (Renamed from Current [...] (Z86.718, V12.51) Comments: and PE. has filter 2010on asa cannot tolerate coumadin had cerebral hemmorhhage [...] of stroke (Z86.73, V12.54) Comments: hemorrhagic stroke 2010 in reviewing the reports at that time [...] so looking at it now. sarita mims 04-27Dr. amanda Braga at [facility] research possible percut. [...] on neurotin and help some. Dr at [facility] not want to do surgery. using accupuncture and massage helping. right now stable. 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 use TCA at times QT good on EKG. had hx of seizures decades ago and not even sure had one so on ly on low dose tca prn. had done 7 Status: Active Spinal stenosis of lumbar region [...] Puff(s) daily for 30 days Quantity: 1 {Hudson} Refills: 5 Ordered:22-Jan-2018 Khang DO, Ida A Start : 22-Jan-2018 Active Furosemide 40 MG Oral Tablet 1 (one) Tablet bid for 0 days Quantity: 30 {Tablet} Refills: 4 Ordered:03-Mar-2018 Minerva Vergara MD, MD, Dana M Start : 03-Mar-2018 Active Furosemide 40 MG Oral Tablet 1 (one) Tablet bid for 0 days Quantity: 90 {Tablet} Refills: 3 Ordered:03-Mar-2018 Minerva Vergara MD, MD, Dana M Start : 03-Mar-2018 Active Gabapentin 100 MG Oral Capsule 1 [...] Refills: 3 Ordered:27-Aug-2017 Minerva Vergara MD, MD, Minerva Painting Start : 27-Aug-2017 Active Synthroid 88 MCG [...] for 10 days Refills: 0 Ordered:26-Oct-2013 Long RECREATIONAL THERAPY TECHNICIANJeanne Start : 22-Oct-2013 End : 01-Nov-2013 Inactive Linzess 145 MCG Oral Capsule 1 (one) Capsule Capsule qd for 0 days Quantity: 30 {Capsule} Refills: 0 Ordered:31-Dec-2017 Minerva Vergara MD, MD, Minerva Painting Start : 03-Jan-2017 End : 31-Dec-2017 Inactive [...] Quantity: 20 {Tablet} Refills: 0 Ordered:14-Jun-2015 Slarb Meka DE LA ROSA Start : 14-Jun-2015 End : 14-Jul-2015 Inactive [...] prn (5 MG) End : 14-Jun-2015 Discontinued Comments:[facility] DOXYCYCLINE HYCLATE, 100MG (Oral Tablet) 1 (one) Tablet bid for 0 days Quantity: 20 {Tablet} Refills: 0 Ordered:02-Aug-2015 Slarb Meka DE [place] ROSA Start : 14-Jul-2015 End : 02-Aug-2015 Discontinued [...] days Quantity: 10 {Tablet} Refills: 0 Ordered:27-Jul-2015 Nova Posadas LPN Start : 17-Jul-2015 End : 27-Jul-2015 Discontinued Premarin 0.625 MG/GM Vaginal Cream 1 (one) Cream twice weekly VA 1gm and small amount over urethra for [...] IVC filter 4 struts through wall. had TAHBSO. colonscopy 2015. right now will do KUB and see if alot stool. treat wit h mg citrate in past. better once clean out bowels KUB show constipsation need to clean out. had MANA got copy. damiánnow repeat CT per bud but wiht contrast [...] cuff (M75.121, 727.61) Comments: saw Dr. Brand 6-16 not want to do surgery with medical [...] to levaquin and reveiwed with patient reports. luc now Status: Inactive as of 18-Feb-2014 DVT, [...] Hospital discharge follow-up (Z09, V67.59) Comments: pneumonia [facility] 03-31-17 to 04-02-17 Status: Resolved as [...] Status: Inactive as of 04-Apr-2017 Vaccine for wiwwuybiry-omxebon-fwzdhiavu with poliomyelitis (Z23, V06.3) Status: Inactive as [...] Dates Details [facility]x [facility] Completed Comments: with Mitral valve replacement October 2009 fibrillator replaced -- April 2013 Completed -- [place] Hysterectomy, Total Completed partial bilateral knee replacement - Completed dr Magana STATUS, HEART VALVE REPLACEMENT NEC Completed (V43.3) Date Value Details 01-May-2018 Pacemaker Check Result: Comments: See Note; NOTES: [facility] [address] [place] [address] Pacemaker Check Date of Service: 05/01/18 1428 MR#: [id number] Acct: [id number] Name: IRIS ARRIAGA Rep #: [id number] : 1940 From: Kim Pickard Age/Sex: 78/F Location: [facility] Status: Signed Billing Codes ICD Device Billing: ICD Dev Prog Eval, Single 05/01/18 1430 <Elect ronically signed by Kim Pickard > Date Kim Pickard 05/01/18 1634<Electronically signed by Gurdeep Huang MD> Cosigner Sign ature: Date (if applicable) Gurdeep Huang MD CC: 18-Mar-2018 Pulmonary Visit Report Result: Comments: See Note; NOTES: [facility] [place] [address] [place] [address] OFFICE VISIT Date of Service: 03/18/18 MR#: [id number] Acct: [id number] Name: IRIS STRINGER CH Rep #: [id number] : 1940 Provider: Glenna Anderson Age/Sex: 78/F Location: [facility] Status: Signed Assessment AND Plan Problems 1. 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 [place] [address] Pacemaker Check Date of Service: 01/28/18 1424 MR#: [id number] Acct: [id number] Name: ETHEL, IRIS S Rep #: [id number] : 1940 From: Kim Pickard Age/Sex: 78/F Location: [facility] Status: Signed Comments Summary Comments: Single Chamber ICD Report: See attached scanned net developer programmer Repor t. Interrogation shows no VT/VF [...] in office Interview Reason: routine follow up Telecommunications Professional: Medtronic Name: Protecta VR Model: [id number] Serial #: [id number] Implant Date: 04/29/13 Year(s): 4 Implant Physician: Dr. Jose Murphy Patient Characteristics Atrial Indication: Paroxysmal atrial fibrillation Ventricular Indication: Nonsustained VT Patient Substrate: Nonischemic cardiomyopathy By: Echo Implant DFT: [id number] Underlying rhythm: Sinus rhythm Pacemaker Dependent: No Device Characteristics Device: Single Chamber Type: Implantable defibrillator Remote Follow-Up: No Device Physical Exam Yes Incision well healed Leads Lead #1 Telecommunications Professional Lead 1: Medtronic Model Lead 1: 5076 Serial# Lead 1: [id number] Date Implanted Lead 1: 09/03/04 Position Lead 1: RV Lead #2 Telecommunications Professional Lead 2: Medtronic Model Lead 2: 6943 Serial# Lead 2: [id number] Date Implanted Lead 2: 11/18/00 Position Lead [...] R00.2 6. Atherosclerot ic heart disease of lumbee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 with angina pectoris I25.119 7. Syncope R55 02/01/18 1335 <Electronically signed by Kim Pickard > Date Kim Pickard 02/02/18 0800<Electronically signed by Gurdeep Huang MD> Cosigner Signature: Date (if applicable) Gurdeep Huang MD CC: 27-Oct-2017 Venous Duplex Lower Extremity Result: Comments: See Note; NOTES: [facility] Cardiovascular Services [address] [place] [address] Venous Duplex US, Unilateral 10/27/17 0952 MR#: [id number] Acct: [id number] Name: IRIS HOU Rep #: [id number] : 1940 77 From: Alejandro Armendariz MD [...] Date Dictated: 10/27/17 0952 Date Transcribed: 10/27/171613 Regional Maintenance Manager: Signed 15-Oct-2017 Pulmonary Visit Report Result: Comments: See Note; NOTES: [facility] [address] [place] [address] OFFICE VISIT Date of Service: 10/15/17 MR#: [id number] Acct: [id number] Name: IRIS STRINGER CH Rep #: [id number] : 1940 Provider: Glenna Anderson Age/Sex: 77/F Location: [facility] Status: Signed Assessment AND Plan 1. URMILA [...] Plan Detail Follow Up 3 Months (MIRNA) [facility] Hospital FU: Chief Complaint: Shortness of breath on exertion HPI Comments Details: This is a 77 year [...] body aches. She has not utilized any hbrx-ulf-xcjfshl medications for her shortness of breath. 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) Tendinitis, [...] <Electronically signed by Glenna CORADO> Date Cher CORADO Cosigner Signature: Date (if applicable) CC: Minerva Vergara MD 14-Oct-2017 SCREENING MAMM (CAD), BILAT Result: Comments: See Note; NOTES: [facility] Imaging Services [address] [place] [address] SCREENING MAMM (CAD), BILAT MR#: [id number] Acct: [id number] Name: IRIS ARRIAGA Rep #: [id number] : 1940 F 77 From: Ed Fink MD PCP: Minerva Vergara MD Status: REG CLI Study: SCREENING MAMM (CAD), BILAT Date of Exam: 10/14/17 Exam# [id number] Ordering Dr: Minerva Vergara MD MAMMOGRAPHY - [...] delay biopsy of a clinically suspicious abnormality. [id number] Electronically Signed: Ed Fink MD at 11:10 EST Tel [phone], Service support , CC: Minerva Vergara MD Regional Maintenance Manager: Signed 06-Oct-2017 Office Visit Report Result: Comments: See Note; NOTES: [facility] Services [address] [place] [address] OFFICE VISIT Date of Service: 09/25/17 MR#: [id number] Acct: [id number] Patient: IRIS ARRIAGA Rep #: [id number] : 1940 Provider: Kim Pickard Age/Sex: 77/F Location: [facility] Status: Signed Comments Summary Comments: Single Chamber ICD Evaluation: Interrogation shows no VT/VF episodes since 06/17/17. Left pectoral pocket/incision w/o s/s of infection or erosion. Pt offers no cardiac complaints. Presenting rhythm shows NSR @ 92 bpm. PLACEMENT ASSISTANT=<0.1%. Lead impedance, sensing and pace/sense thres hold remain stable. No parameter changes made. Counters cleared. Next f/u appt scheduled for in 3 mos. Device Device Date Interviewed: 09/25/17 Follow-up Location: in office Interview Reason: routine follow up Telecommunications Professional: Medtronic Name: Protecta VR Model: [id number] Serial #: [id number] Implant Date: 04/29/13 Year(s): 4 Implant Physician: [...] Incision well healed Leads Le ad #1 Telecommunications Professional Lead 1: Medtronic Model Lead 1: 5076 Serial# Lead 1: [id number] Date Implanted Lead 1: 09/03/04 Position Lead 1: RV Additional Details: pace/sense lead Lead #2 Telecommunications Professional Lead 2: [place] marcus Model Lead 2: 6943 Serial# Lead 2: [id number] Date Implanted Lead 2: 11/18/00 Position Lead [...] Visit Report Result: Comments: See Note; NOTES: [facility] [address] [place] [address] OFFICE VISIT Date of Service: 09/11/17 MR#: [id number] Acct: [id number] Name: IRIS ARRIAGA Rep #: [id number] : 1940 Provider: Gurdeep Huang MD Age/Sex: 77/F Location: [facility] Status: Signed HPI 6 M FU: Details: [...] that she was evaluated for such at [facility]. 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 [...] artery disease) I25.10 Coronary Disease-Associated Artery/Lesion type: lumbee artery Long-term use of high-risk medication Z79.899 [...] artery disease) I25.10 Coronary Disease-Associated Artery/Lesion type: lumbee artery Long-term use of high-risk medication Z79.899 09/11/17 1716 <Electronically signed by Gurdeep Huang MD> Date Gurdeep Huang MD Cosigner Signature: Date ___ (if applicable) CC: Minerva Vergara MD 28-Jul-2017 Venous Duplex Lower Extremity Result: Comments: See Note; NOTES: [facility] Cardiovascular Services [address] [address] Venous Duplex US, Unilateral 07/28/17 0942 MR#: [id number] Acct: [id number] Name: IRIS HOU Rep #: [id number] : 1940 77 From: Alejandro Armendariz MD [...] MD Date Dictated: 07/28/17941 Date Transcribed: 07/28/171751 Regional Maintenance Manager: Signed 28-Jul-2017 CT ANGIO ABD AND PEL W/O AND W/DYE Result: Comments: See Note; NOTES: [facility] Imaging Services [address] [place] [address] CT ANGIO ABD AND PEL W/O AND W/DYE MR#: [id number] Acct: [id number] Name: IRIS ARRIAGA Rep #: [id number] : 1940 F 77 From: Apolinar Ansari DO PCP: Minerva Vergara MD Status: REG CLI Study: CT ANGIO ABD AND PEL W/O AND W/DYE Date of Exam: 07/28/17 Exam# [id number] Ordering Dr: Minerva Child i, MD STUDY: [...] Service support , CC: Minerva Vergara MD Regional Maintenance Manager: Signed 19-Feb-2017 6 Minute Walk Test Result: Comments: See Note; NOTES: [facility] Pulmonary Services/Neurology [address] [place] [address] MR#: [id number] Acct: [id number] Name: IRIS ARRIAGA Rep #: [id number] : 1940 77 From: Jeremie Schulzt MD Referring Dr: Bruno Barcenas D.O. Date: Ordering Dr: Sex: F C Location: PSN PSN 6 Minute Walk Test - 6 Minute Walk Test 6 Minute Walk Test: 6 Minute Walk Test PS N:6-Minute Walk Test Start: 02/19/17 12:50 Freq: Status: Active Document 02/19/17 12:50 FR (Rec: 02/19/17 12:53 FR [id number]) 6 Minute Walk Test Date Performed 02/19/17 [...] closely. 02/19/17 1558 <Electronically signed by Jeremie Schultz MD> Date Abhi Schultz MD CC: Date Dictated: 02/19/17 1553 Date Transcribed: 02/19/171552 Regional Maintenance Manager: Jeremie Schultz Signed 03-Jan-2017 Abdomen/Pelvis WITH Contrast Result: Comments: See Note; NOTES: [facility] Imaging Services [address] [place] [address] Verdana 4d Abdomen/Pelvis WITH Contrast MR#: [id number] Acct: [id number] Name: JARON ARRIAGA Rep #: [id number] : 1940 F 76 From: Ed Fink MD PCP: Minerva Vergara MD Status: REG CLI Study: Abdomen/Pelvis WITH Contrast Date of Exam: 01/03/17 Exam# [id number] Ordering Dr: Minerva Bartlett MD STUDY: CT [...] Ed Fink MD at 13:03 EDT Tel [phone], Service support , CC: Minerva Vergara MD Regional Maintenance Manager: Signed 01-Jan-2017 Pulmonary Function Report Comp Result: Comments: See Note; NOTES: [facility] Pulmonary Services/Neurology [address] [place] [address] Pulmonary Function Test (Comp) MR#: [id number] Acct: [id number] Name: CATHLEEN ARRIAGA Rep #: [id number] : 1940 76 From: Bruno Barcenas DO Referring Dr: Minerva Vergara MD Status: REG CLI Ordering Dr: Minerva Vergara MD Date: 12/31/16 Location: [facility] Sex: F C DATE OF SERVICE: 12/10 [...] Lisseth Valdivia C: Referring Provider . T: NTS JOB: [id number] 01/01/17 1057 <Electronically signed by Christian Barcenas DO> Date Burno Barcenas DO CC: Minerva Vergara MD; Bruno Barcenas D.O. Date Dictated: 12/31/16 160 Date Transcribed: 12/31/161600 Regional Maintenance Manager: Signed 26-Dec-2016 Echocardiogram Complete Result: Comments: See Note; NOTES: [facility] Cardiovascular Services [address] [place] [address] Echo Complete 12/25/16 1357 MR#: [id number] Acct: [id number] Name: IRIS ARRIAGA Rep #: [id number] : 1940 76 From: Gurdeep Huang MD [...] Vergara M.D. Performed By: Prema Fiore RDCS 12/26/16 0907 Date Gurdeep Huang MD CC: Minerva Vergara MD; Peace Miller Date Dictated: 12/25/16 1357 Date Transcribed: 12/26/16 09 Regional Maintenance Manager: Signed 04-Dec-2016 Abd Inc Decub and/or Erect Result: Comments: See Note; NOTES: [facility] Imaging Services [address] [place] [address] Verdana 4d Abd Inc Decub and/or Erect MR#: [id number] Acct: [id number] Name: ARI ARRIAGA Jose Manuel Tucker Rep #: [id number] : 1940 F 76 From: Mele Brown MD PCP: Minerva Vergara MD Status: REG CLI Study: Abd Inc Decub and/or Erect Date of Exam: 12/04/16 Exam# [id number] Ordering Dr: Anita Quiñonez DO STUDY: X-RAY [...] CC: Minerva Vergara MD; Ida Quiñonez DO Regional Maintenance Manager: Signed 04-Dec-2016 CTA Chest W/WO Contrast Result: Comments: See Note; NOTES: [facility] Imaging Services [address] [place] [address] 4d CTA Chest W/WO Contrast MR#: [id number] Acct: [id number] Name: IRIS ARRIAGA Rep #: [id number] : 1940 F 76 From: Ed Fink MD PCP: Minerva Vergara MD Status: REG CLI Study: CTA Chest W/WO Contrast Date of Exam: 12/04/16 Exam# [id number] Ordering Dr: Ida Quiñonez DO STUDY: CTA [...] Megan Fink MD at 15:43 EDT Tel [phone], Service support , CC: Minerva Vergara MD; Ida Quiñonez DO Regional Maintenance Manager: Signed 03-Dec-2016 Venous Duplex Lower Extremity Result: Comments: See Note; NOTES: [facility] Cardiovascular Services [address] [place] [address] Venous Duplex US - David Extrem 12/03/16 1553 MR#: [id number] Acct: [id number] Name: IRIS ARRIAGA Rep #: [id number] : 1940 76 From: Alejandro Armendariz MD [...] 12/03/16 1553 Da te Transcribed: 12/03/16 1850 Regional Maintenance Manager: Signed 02-Dec-2016 Abdomen without IV Contrast Result: Comments: See Note; NOTES: [facility] Imaging Services [address] [place] [address] Verdana 4d Abdomen without IV Contrast MR#: [id number] Acct: [id number] Name: CAMILA ARRIAGA Rep #: [id number] : 1940 F 76 From: Moses Chase MD PCP: Minerva Vergara MD Status: REG CLI Study: Abdomen without IV Contrast Date of Exam: 12/02/16 Exam# [id number] Ordering Dr: Minerva Broussard MD STUDY: CT [...] diverticulitis. The abdominal wall is intact. A [place] umbrella filter is in place but 4 [...] left.. CT/Abdomen without IV Contrast IMPRESSION: A [place] umbrella filter in place with at least [...] Service support , CC: Minerva Vergara MD Regional Maintenance Manager: Signed 31-Oct-2016 Abd Inc Decub and/or Erect Result: Comments: See Note; NOTES: [facility] Imaging Services [address] [place] [address] Verdana 4d Abd Inc Decub and/or Erect MR#: [id number] Acct: [id number] Name: ARI ARRIAGA Rep #: [id number] : 1940 F 76 From: Ed Fink MD PCP: Minerva Vergara MD Status: REG CLI Study: Abd Inc Decub and/or Erect Date of Exam: 10/31/16 Exam# [id number] Ordering Dr: Minerva Vergara MD STUDY: X-RAY [...] Ed Fink MD at 10:26 EDT Tel [phone], Service support [phone], CC: Minerva Vergara MD Regional Maintenance Manager: Signed 31-Oct-2016 Chest PA and Lateral Result: Comments: See Note; NOTES: [facility] Imaging Services [address] [place] [address] Verdana 4d Chest PA and Lateral MR#: [id number] Acct: [id number] Name: IRIS ARRIAGA Re p #: [id number] : 1940 F 76 From: Ed Fink MD PCP: Minerva Vergara MD Status: REG CLI Study: Chest PA and Lateral Date of Exam: 10/31/16 Exam# [id number] Ordering Dr: Minerva Vergara MD S DY: X-RAY CHEST REASON FOR EXAM: Female, 76 [...] Ed Fink MD at 10:27 EDT Tel [phone], Service support [phone], CC: Minerva Vergara MD Regional Maintenance Manager: Signed 26-Sep-2016 Dexa Bone Density Study (HP) Result: Comments: See Note; NOTES: [facility] Imaging Services [address] [place] [address] Verdana 4d Dexa Bone Density Study (HP) MR#: [id number] Acct: [id number] Name: JARON ARRIAGA Rep #: [id number] : 1940 F 76 From: Ed Fink MD PCP: Minerva Vergara MD Status: REG CL Study: Dexa Bone Density Study (HP) Date of Exam: 09/26/16 Exam# [id number] Ordering Dr: Minerva Bartlett MD STUDY: DUAL [...] Fink MD at 15:0 0 EST Tel [phone], Service support [phone], CC: Minerva Vergara MD Regional Maintenance Manager: Signed 26-Sep-2016 SCREENING MAMM (CAD), BILAT Result: Comments: See Note; NOTES: [facility] Imaging Services [address] [place] [address] Verdana 4d SCREENING MAMM (CAD), BILAT MR#: [id number] Acct: [id number] Name: CAMILA ARRIAGA Rep #: [id number] : 1940 F 76 From: Ed Fink MD PCP: Minerva Vergara MD Status: REG CLI Study: SCREENING MAMM (CAD), BILAT Date of Exam: 09/26/16 Exam# [id number] Ordering Dr: Minerva Child i, MD MAMMOGRAPHY [...] delay biopsy of a clinically suspicious abnormality. [id number] Electronically Signed: Ed Fink MD at 7:48 EST Tel [phone], Service support [phone], CC: Minerva Vergara MD Regional Maintenance Manager: Signed 09-Feb-2016 Operative Report Result: Comments: See Note; NOTES: [facility] Medical Records Department [address] [place] [address] Operative Report MR#: [id number] Acct: [id number] Name: CAMILA ARRIAGA Rep #: [id number] : 1940 76 From: Clifford Gifford MD [...] without difficulty to the cecum, identified by klawock's foot appearance, ileocecal valve and appendiceal orifice. [...] patient. Kamari Gifford MD T: NTS JOB: [id number] 02/09/16 0706 <Electronically signed by Clifford Gifford MD> Date Clifford Gifford MD Cosign er Signature (If Indicated): Date CC: Clifford Gifford; Minerva Vergara MD Date Dictated: 01/30/16 0833 Date Transcribed: 01/30/16832 Regional Maintenance Manager: Signed 15-Nov-2015 Gallbladder Result: Comments: See Note; NOTES: [facility] Imaging Services [address] [place] [address] Verdana 4d Gallbladder MR#: [id number] Acct: [id number] Name: IRIS ARRIAGA Rep #: [id number] : 1940 F 75 From: Sofia Storey MD PCP: Minerva Vergara MD Status: REG ER Study: Gallbladder Date of Exam: 11/15/15 Exam# [id number] Ordering Dr: Jalil Nogueira MD STUDY: ULTRASOUND [...] MD at 21:57 EDT , Service support [phone], F ax [phone] CC: Minerva Vergara MD; Jalil Nogueira MD Regional Maintenance Manager: Signed 15-Nov-2015 Abdomen/Pelvis WITH Contrast Result: Comments: See Note; NOTES: [facility] Imaging Services [address] [place] [address] Verdana 4d Abdomen/Pelvis WITH Contrast MR#: [id number] Acct: [id number] Name : IRIS ARRIAGA Rep #: [id number] : 1940 F 75 From: Sofia Storey MD PCP: Bonezzi MD,Minerva Status: REG ER Study: Abdomen/Pelvis WITH Contrast Date of Exam: 11/15/15 Exam# [id number] Order ing Dr: Jalil Nogueira MD STUDY: [...] MD at 20:10 EDT , Service support [phone], CC: Minerva Vergara MD; Jalil Nogueira MD Regional Maintenance Manager: Signed 31-Oct-2015 Cerv Spine 4 or 5 Views Result: Comments: See Note; NOTES: [facility] Imaging Services [address] [place] [address] Verdana 4d Cerv Spine 4 or 5 Views MR#: [id number] Acct: [id number] Name: IRIS WRAY Rep #: [id number] : 1940 F 75 From: Alexey Stephens MD PCP: Minerva Vergara MD Status: REG CLI Study: Cerv Spine 4 or 5 Views Date of Exam: 10/31/15 Exam# [id number] Ordering Dr: Tiffanie Corcoran DO STUDY: X-RAY [...] a t 13:54 EDT , Service support [phone], RAD/Cerv Spine 4 or 5 Views IMPRESSION: Severe cervical spondylosis. Electronically Signed: Earl Stephens MD, FACR at 13:54 EDT , Service support [phone], CC: Tiffanie Saha DO; Minerva Vergara MD Regional Maintenance Manager: Signed 28-Sep-2015 PT D/C Summary (1) Result: Comments: See Note; NOTES: [facility] Physical Therapy [facility] [address] [place], [place] [address] Fax REHABILITATION SE RVICES DISCHARGE SUMMARY MR#: [id number] Acct: [id number] Name: IRIS ARRIAGA Rep #: [id number] : 1940 75 From: Kelvin Newman DPT, [...] please feel free to call me at [phone]. Thank you for the referral of this patient. Sincerely, Kelvin Newman <Electronically signed by Kelvin Newman DPT, OCS, CSCS> 09/28/15 0944 CC: Minerva Vergara MD; Nerissa Bhat EBG Signed 24-Aug-2015 PT Communication Result: Comments: See Note; NOTES: [facility] Physical Therapy [address] [place] [address] Fax REHABILITATION SE RVICES PROGRESS NOTE MR#: [id number] Acct: [id number] Name: IRIS ARRIAGA Rep #: [id number] : 1940 75 From: Kelvin Newman Referring Dr.: Nerissa Bhat Status: REG RCR Insurance: [employer] MEDICARE PPO ANTHEM PT Communication Note 08/24/15 Dear Mert Moore and Dr. Vergara, Thank you for the referral of Iris Arriaga to [facility] for physical therapy and balance assessment. I [...] - PT Result: Comments: See Note; NOTES: [facility] Physical Therapy [facility] [address] [place] [address]. [address] [place] [address] Fax [facility] MR#: [id number] Acct: [id number] Name: IRIS ARRIAGA Rep #: [id number] : 1940 75 From: Kelvin Newman Referring [...] Duration: 4-6 Weeks - Subjective Fell at [email or web address] in May and hurt head. Then p assed out shortly thereafter went to ER and was dehydrated. Went to Dr. vergara a couple weeks ago and was sent to ER for low blood pressure. Spent a few days in hospital and found that the pig valve is thickening. Will go to [place] later in month as Dr. Huang sent [...] to be FAXED BACK to us at [phone] for Medicare purp oses. Please let me know if there are questions or concerns regarding this plan of care. Physician Signature: Date: <Electron ically signed by Kelvin Newman > 08/17/15 0944 CC: Minerva Vergara MD; Nerissa Bhat EBG Signed For Medicare only, by signing this I certify the plan of care. Physicians Signature Date 09-Aug-2015 Brain/Head without Contrast Result: Comments: See Note; NOTES: [facility] Imaging Services [address] [place] [address] Verdana 4d Brain/Head without Contrast MR#: [id number] Acct: [id number] Name: IRIS ARRIAGA Rep #: [id number] : 1940 F 75 From: Robert Osborn MD PCP: Minerva Vergara MD Status: REG Study: Brain/Head without Contrast Date of Exam: 08/09/15 Exam# [id number] Ordering D r: Sneha Baptiste MD STUDY: [...] at 13:15 EST Tel , Service support [phone], CC: Minerva sierra MD; Sneha Baptiste MD Regional Maintenance Manager: Signed 09-Aug-2015 Chest 1 View (Portable) Result: Comments: See Note; NOTES: [facility] Imaging Services [address] [place] [address] Verdana 4d Chest 1 View (Portable) MR#: [id number] Acct: [id number] Name: IRIS WRAY Rep #: [id number] : 1940 F 75 From: Robert Osborn MD PCP: Minerva Vergara MD Status: REG ER Study: Chest 1 View (Portable) Date of Exam: 08/09/15 Exam# [id number] Ordering Dr: Sneha Baptiste MD STUDY: X-RAY [...] at 12:43 EST Tel , Service support [phone], RAD/Chest 1 View (Portable) IMPRESSION: No acute pulmonary process, no interval change Electronically Signed: Josesito Osborn MD at 12:43 EST Tel , Service support [phone], CC: Minerva Vergara MD; Sneha Baptiste MD Regional Maintenance Manager: Signed 20-Jul-2015 Chest PA and Lateral Result: Comments: See Note; NOTES: [facility] Imaging Services [address] [place] [address] Verdana 4d Chest PA and Lateral MR#: [id number] Acct: [id number] Name: IRIS ARRIAGA Rep #: [id number] : 1940 F 75 From: Ed Fink MD PCP: Minerva Vergara MD Status: REG CLI Study: Chest PA and Lateral Date of Exam: 07/20/15 Exam# [id number] Ordering Dr: Minerva Amezquita MD STUDY: X-RAY [...] Ed Fink MD at 13:14 EST Tel [phone], Service support , RAD/Chest PA and Lateral IMPRESSION: No acute abnormality is seen. Electronically Signed: Ed Fink MD at 13:14 EST Tel [phone] , Service support [phone], CC: Minerva Vergara MD Regional Maintenance Manager: Signed 06-Jun-2015 Brain/Head without Contrast Result: Comments: See Note; NOTES: [facility] Imaging Services [address] [place] [address] Verdana 4d Brain/Head without Contrast MR#: [id number] Acct: [id number] Name: IRIS ARRIAGA Rep #: [id number] : 1940 F 75 From: Ed Fink MD PCP: Minerva Vergara MD Status: REG ER Study: Brain/Head without Contrast Date of Exam: 06/06/15 Exam# [id number] Coeymans sarojing Dr: Kermit Verduzco MD STUDY: CT BRAIN [...] Fink MD a t 16:13 EDT Tel [phone], Service support [phone], CC: Minerva Vergara MD; Kermit Verduzco MD Regional Maintenance Manager: Signed 06-Jun-2015 Chest 1 View (Portable) Result: Comments: See Note; NOTES: [facility] Imaging Services [address] [place] [address] Verda 4d Chest 1 View (Portable) MR#: [id number] Acct: [id number] Name: IRIS WRAY Rep #: [id number] : 1940 F 75 From: Farhad Cedillo MD PCP: Minerva Vergara MD Status: REG ER Study: Chest 1 View (Portable) Date of Exam: 06/06/15 Exam# [id number] Ordering Dr: Kermit Verduzco MD STUDY: X-RAY [...] at 17:06 EDT Tel , Service support [phone], BENEZETT ER #: [id number] RAD/Chest 1 View (Portable) IMPRESSION: 1. Left-sided bipolar pacemaker seen with leads appearing in good position. 2. Moderate cardiomegaly. 3. Status post sternotomy changes. 4. There is no evidence of infiltrate, atelectasis, or pleural fluid. Electronically Signed: Farhad Cedillo MD at 17:06 EDT Tel , Service support [phone], Fax CC: Minerva Vergara MD; Kermit Verduzco MD Regional Maintenance Manager: Signed 06-Jun-2015 Pelvis 1 or 2 Views Result: Comments: See Note; NOTES: [facility] Imaging Services [address] [place] [address] Verdana 4d Pelvis 1 or 2 Views MR#: [id number] Acct: [id number] Name: IRIS ARRIAGA Rep #: [id number] : 1940 F 75 From: Ed Fink MD PCP: Minerva Vergara MD Status: REG ER Study: Pelvis 1 or 2 Views Date of Exam: 06/06/15 Exam# [id number] Ordering Dr: Kermit Verduzco MD STUDY: X-RAY [...] Ed Fink MD at 16:15 EDT Tel [phone], Service support [phone], RAD/Pelvis 1 or 2 Views IMPRESSION: Status post bilateral total hip replacement. Elect ronically Signed: Ed Fink MD at 16:15 EDT Tel [phone], Service support [phone], CC: Minerva Vergara MD; Kermit Verduzco MD Regional Maintenance Manager: Signed 06-Jun-2015 Spine Cervical without Contras Result: Comments: See Note; NOTES: [facility] Imaging Services [address] [place] [address] Verdana 4d Spine Cervical without Contras MR#: [id number] Acct: [id number] Na me: IRIS ARRIAGA Rep #: [id number] : 1940 F 75 From: Ed Fink MD PCP: Minerva Vergara MD Status: REG ER Study: Spine Cervical without Contras Date of Exam: 06/06/15 Exam# [id number]: Kermit Verduzco MD STUDY: [...] Ed Fink MD at 16:15 EDT Tel [phone], Service support [phone], CC: Minerva Vergara MD; Kermit Verduzco MD Regional Maintenance Manager: Signed 19-Apr-2015 Spine Lumbar without Contrast Result: Comments: See Note; NOTES: [facility] Imaging Services [address] [place], [place] [address] [address] CAT Scan Report MR#: [id number] Acct: [id number] Name: IRIS ARRIAGA Rep #: [id number] : 1940 F 75 From: Taim Rodriguez MD PCP: Minerva Vergara MD Status: REG CLI Study: Spine Lumbar without Contrast Date of Exam: 04/19/15 Exam# [id number] Ordering Dr: Monica Mir, Out o. STUDY: [...] at 14:58 EDT Tel , Service support [phone], CC: Minerva Vergara MD; OUT OF TOWN DOCTOR Regional Maintenance Manager: Signed 19-Apr-2015 Lumbar Myelogram Result: Comments: See Note; NOTES: [facility] Imaging Services [address] [place] [address] Radiology Report MR#: [id number] Acct: [id number] Name: IRIS ARRIAGA Rep #: [id number] : 1940 F 75 From: Tami Rodriguez MD PCP: Minerva Vergara MD Status: REG CLI Study: Lumbar Myelogram Date of Exam: 04/19/15 Exam# [id number] Ordering Dr: CRISTIAN COFFEY CLINICAL HISTORY : [...] at 15:12 EDT Tel , Service support [phone], RAD/Lumbar Myelogram IMPRESSI ON: There is severe spinal canal stenosis at L4-5. Electronically Signed: Jessy Rodriguez MD at 15:12 EDT Tel , Service support [phone], CC: Gina Vergara MD; CRISTIAN COFFEY Regional Maintenance Manager: Signed 10-Apr-2015 Discharge Instruction Result: Comments: See Note; NOTES: [facility] Medical Records Department [address] [place] [address] Discharge Instruction 04/03/15 1440 MR#: [id number] Acct: [id number] Name: IRIS ARRIAGA Rep #: [id number] : 1940 75 From: Ellen Gilman MD [...] problems, contact your doctor. Call [facility] ([phone]) or report to the closest Emergency Room. Call 911 if necessary. 04/03/15 1441 <Electronically signed by Ellen Gilman MD> Date Ellen Gilman MD 04/10/15 0835<Electronically signed Juli Polanco MD> Cosigner Signature (If Indicated): Date Rickie Polanco MD CC: Minerva Vergara MD 10-Apr-2015 Discharge Instruction Result: Comments: See Note; NOTES: [facility] Medical Records Department [address] [place] [address] Discharge Instruction 04/03/15 1448 MR#: [id number] Acct: [id number] Name: IRIS ARRIAGA Rep #: [id number] : 1940 75 From: Rickie Polanco MD PCP: Minerva Vergara MD Status: DEP ER ED Disposition - Plan for ED Patient: Disposition: Home or Assisted Living [facility] Complaint: Lower Extremity Injury Instructions: ED Leg [...] problems, contact your doctor. Call [facility] ([phone]) or report to the closest Emergency Room. Call 911 if necessary. 04/10 0835 <Electronically signed by Rickie Polanco MD> Date Rickie Polanco MD Cosigner Signature (If Indicated): Date CC: Minerva Vergara MD 10-Apr-2015 Emergency Department Summary Result: Comments: See Note; NOTES: [facility] Medical Records Department [address] [facility] [place] [place] [address] Emergency Department Summary MR#: [id number] Acct: [id number] Name: IRIS VALENCIA Rep #: [id number] : 1940 75 From: Ellen Gilman MD [...] acute. Ellen Gilman MD T: NTS JOB: [id number] 04/05/15 0836 <Electronically signed by Ellen Gilman MD> Date Ellen Gilman MD 04/10/15 0835 <Electronically signed by Natanael Polanco MD> Cosigner Signature (If Indicated): Date Rickie Polanco MD CC: Minerva Vergara MD Date Dictated: 04/03/151454 Date Transcribed: 04/03/151454 Regional Maintenance Manager: Signed 04-Apr-2015 12 Lead Electrocardiogram Result: Comments: See Note; NOTES: [facility] Cardiovascular Services [address] [place] [address] 12 Lead EKG 04/03/151350 MR#: [id number] Acct: [id number] Name: IGGY ARRIAGA Rep #: [id number] : 1940 75 From: Gurdeep Huang MD [...] LVH Abnormal ECG Confirmed by REINA TIRADO, GURDEPE ([id number]), book or script editor CAROLEE MARIEE ([id number]) on 04/04/2015 10:27:52 AM Referred By: VALENTINA Confirmed By:GURDEEP HUANG MD 04/04/15 1027 Date Gurdeep Huang MD CC: Minerva Vergara MD Date Dictated: 04/03/151350 Date Transcribed: 04/03/151350 Regional Maintenance Manager: Signed 03-Apr-2015 Femur 2 Views Result: Comments: See Note; NOTES: [facility] Imaging Services [address] [place] [address] Radiology Report MR#: [id number] Acct: [id number] Name: IRIS ARRIAGA Rep #: [id number] : 1940 F 75 From: Ed Fink MD PCP: Minerva Vergara MD Status: REG ER Study: Femur 2 Views Date of Exam: 04/03/15 Exam# [id number] Ordering Dr: Rickie Polanco MD STUDY: X- [...] Ed Fink MD at 12:59 EDT Tel [phone], Service support [phone], RAD/ Femur 2 Views IMPRESSION: No acute abnormality is seen. Electronically Signed: Ed Fink MD at 12:59 EDT Tel [phone], Service support [phone], CC: Minerva Vergara MD; Rickie Polanco MD Regional Maintenance Manager: Signed 03-Apr-2015 Chest PA and Lateral Result: Comments: See Note; NOTES: [facility] Imaging Services [address] [place] [address] Radiology Report MR#: [id number] Acct: [id number] Name: IRIS ARRIAGA Rep #: [id number] : 1940 F 75 From: Ed Fink MD PCP: Minerva Vergara MD Status: REG ER Study: Chest PA and Lateral Date of Exam: 04/03/15 Exam# [id number] Ordering Dr: Ellen Gilman MD STUD Y: X-RAY CHEST REASON FOR EXAM: Female, 75 years old. Chest pain and chest tightness. TECHNIQUE: AP and lateral views of the chest. COMPARISON: Comparison is made with prior examination dated [facility] 2014. FINDINGS: There is blunting of the [...] Ed Fink MD at 13:05 EDT Tel [phone], Service support [phone], Fax RAD/Chest PA and Lateral IMPRESSION: Mild degree of linear scarring at the lung bases and blunting of both costophrenic angles. Electronically Signed: Ed ledezma MD at 13:05 EDT Tel [phone], Service support [phone], CC: Ellen Gilman MD; Minerva Vergara MD Regional Maintenance Manager: Signed 27-Mar-2015 Abd Inc Decub and/or Erect Result: Comments: See Note; NOTES: [facility] Imaging Services [address] [place] [address] Radiology Report MR#: [id number] Acct: [id number] Name: IRIS ARRIAGA Rep #: [id number] : 1940 F 75 From: Tylor Guzman DO PCP: Minerva Vergara MD Status: REG CLI Study: Abd Inc Decub and/or Erect Date of Exam: 03/27/15 Exam# [id number] Ordering Dr: Ida Quiñonez DO STUDY: X- [...] Guzman DO at 18:34 EDT Te l [phone], Service support [phone], 0093 RAD/Abd Inc Decub and/or Erect IMPRESSION: No acute abdominal pathology is noted. Electronically Signed: Tylor Guzman DO at 18:34 EDT Tel [phone], Service support [phone], CC: Minerva Vergara MD; Ida Quiñonez DO Regional Maintenance Manager: Signed 20-Mar-2015 PT Discharge Summary Result: Comments: See Note; NOTES: [facility] Physical Therapy [address] [place] [address] Fax REHABILITATION SERVICES DISCHARGE SUMMARY MR#: [id number] Acct: [id number] Name: IRIS ARRIAGA Rep #: [id number] : 1940 75 From: Kelvin Newman Referring [...] program. Kelvin Newman, PT T: NTS JOB: [id number] <Electronically signed by Kelvin Newman > 03/20/15 0648 CC: Signed 25-Jan-2015 Chest PA and Lateral Result: Comments: See Note; NOTES: [facility] Imaging Services [address] [place] [address] Radiology Report MR#: [id number] Acct: [id number] Name: IRIS ARRIAGA Rep #: [id number] : 1940 F 75 From: Apolinar Ansari DO PCP: Minerva Vergara MD Status: REG CLI Study: Chest PA and Lateral Date of Exam: 01/25/15 Exam# [id number] Ordering Dr: Gurdeep Huang MD STUD Y: [...] at 5:42 EDT Tel , Service support [phone], RAD/Chest PA and Lateral IMPRESSION: Very minimal left basilar atel ectasis. Otherwise, no acute process. Electronically Signed: Apolinar DO Elan at 5:42 EDT Tel , Service support [phone], CC: Minerva Vergara MD; Gurdeep Huang MD Regional Maintenance Manager: Signed 24-Jan-2015 Pulmonary Function Report Comp Result: Comments: See Note; NOTES: [facility] Pulmonary Services/Neurology [address] [place] [address] Pulmonary Function Test (Comp) MR#: [id number] Acct: [id number] Name: TANISHA REDIRIS Caitlin Rep #: [id number] : 1940 75 From: Jeremie Schultz MD Referring Dr: Peace Curran Status: REG CLI Ordering Dr: Peace Curran Date: 01/18/15 Location: N Sex: F C MAI E OF SERVICE: [...] There has been worsening since previous study. JEREMIE SCHULTZ MD C C: Gurdeep Huang MD T: [facility] JOB: [id number] SPIROMETRY Ref ULN/LLN Pre Pre Post Post [...] ble emptying lungs completely. Patient requested Dr. Schultz to read. Date: 01/18/15 Tech.: Natalie Garza Temp: PBar: Height(in.): 71 Weight(lbs.): 174 Diagnosis: Amiodarone therapy Medication : : Dyspnea Rest: Dyspnea Exercise: Cough: Productive (cc): Persistent: Smoker: N How Long (pk/yrs): Stopped (yrs): Cigarettes: Cigars: 01/24/15 0647 <Electronically signed by Grisel Schultz MD> Date Jeremie Schultz MD CC: Jeremie Schultz MD; Minerva Vergara MD; Peace Curran; Gurdeep Huang MD Date Dictated: 01/19/151645 Date Transcribed: 01/19/151645 Regional Maintenance Manager: Signed 19-Jan-2015 Inital Evaluation - PT Result: Comments: See Note; NOTES: [facility] Physical Therapy [facility]. [address] [place] [address] Fax REHABILITATION SERVICES INITIAL EVALUATION MR#: [id number] Acct: [id number] Name: IRSI ARRIAGA Rep #: [id number] : 1940 75 From: Kelvin Newman Referring [...] reading and walking with . Shops with moreby, no AD. - Objective Objective: Ambulates with [...] to be FAXED BACK to us at for Medicare purposes. Please let me know if there are questions or concerns regarding this plan of care. & amp;#60;Electronically signed by Kelvin Newman > 01/19/15 0932 CC: EL Signed For Medicare only, by signing this I certify the plan of care. Physicians Signature Date 10-Jan-2015 ELECTROCARDIOGRAM, COMPLETE (ECG) ([id number]) Result: [MEASUREMENTS ANALYSIS] Date of Test: 08/09/2015 10:29:14; Heart Rate: 78; VA Interval: 230; QRS: 114; QT Interval: 438; Corrected QT Interval (QTc): 469; P Wave [place]: 69; QRS Wave [place]: -7; T Wave [place] : 22; Blood Pressure: 140/90 [ECG DIAGNOSTIC STATEMENTS] Date of Test: 08/09/2015 10:29:14; Summary: Sinus Rhythm -First degree A-V block -Frequent pvcs - ventricular bigeminy Viridiana = 230- Nonspecific T-abnormality. ABNORMAL [MEASUREMENTS ANALYSIS] Date of Test: 08/09/2015 10:29:10; Heart Rate: 78; VA Interval: 230; QRS: 114; QT Interval: 438; Corrected QT Interval (QTc): 469; P Wave [place]: 69; QRS W [address] [place]: -7; T Wave [place]: 22; Blood Pressure: 140/90 [ECG DIAGNOSTIC STATEMENTS] Date of Test: 08/09/2015 10:29:10; Summary: Sinus Rhythm -First degree A-V block -Frequent pvcs -ventricular bigeminy Viridiana = 230- Nonspecific T- abnormality. ABNORMAL 05-Jan-2015 PT Discharge Summary Result: Comments: See Note; NOTES: [facility] Physical Therapy [facility]. [address] [place] [address] Fax REHABILITATION SERVICES DISCHARGE SUMMARY MR#: [id number] Acct: [id number] Name: IRIS ARRIAGA Rep #: [id number] : 1940 74 From: Kelvin Newman Referring Dr.: Tiffanie Saha DO Status: REG RCR Evnella Date: Cheryl palomo Date: DATE OF SERVICE: [...] to that program. Kelvin Newman, PT T: NTS JOB: [id number] <Electronically signed by Kelvin Newman > 01/05/15 0931 CC: Signed 24-Nov-2014 Inital Evaluation - PT Result: Comments: See Note; NOTES: [facility] Physical Therapy [facility]. [address] [place] [address] Fax REHABILITATION SERVICES INITIAL EVALUATION MR#: [id number] Acct: [id number] Name: IRIS ARRIAGA Rep #: [id number] : 1940 74 From: Kelvin Newman Referring [...] is sleepin g well. She is a [employer] member here at [facility], but has not worked out here much [...] use moist heat. Kelvin Newman, PT T: LORI JOB: [id number] <Electronically signed by Kelvin Newman > 11/24/14 0940 CC: Signed For [facility] only, by signing this I certify the plan of care. Physicians Signature Date 04-Nov-2014 Abdomen Single View Result: Comments: See Note; NOTES: [facility] Imaging Services [address] [place] [address] Radiology Report MR#: [id number] Acct: [id number] Name: IRIS ARRIAGA Rep #: [id number] : 1940 F 74 From: Ed Fink MD PCP: Minerva Vergara MD Status: REG CLI Study: Abdomen Single View Date of Exam: 11/04/14 Exam# [id number] Ordering Dr: Minerva Vergara MD STUDY : [...] Ed Fink MD at 14:10 EDT Tel [phone], Service support [phone], Fax RAD/Abdomen Single View IMPRESSION: Moderate amount of fecal material is seen throughout the colon. Electronically Signed: Ed Fink MD at 14: 10 EDT Tel [phone], Service support [phone], CC: Minerva Vergara MD Regional Maintenance Manager: Signed 04-Nov-2014 Shoulder min 2 Views Result: Comments: See Note; NOTES: [facility] Imaging Services [address] [place] [address] Radiology Report MR#: [id number] Acct: [id number] Name: IRIS ARRIAGA Rep #: [id number] : 1940 F 74 From: Ed Fink MD PCP: Minerva Vergara MD Status: REG CLI Study: Shoulder min 2 Views Date of Exam: 11/04/14 Exam# [id number] Ordering Dr: Minerva Vergara MD STUD Y: [...] Ed Fink MD at 14:11 EDT Tel [phone], Service support [phone], CC: Minerva Vergara MD Regional Maintenance Manager: Signed 21-Oct-2014 Echocardiogram Complete Result: Comments: See Note; NOTES: [facility] Cardiovascular Services [address] [place] [address] Echo Complete 10/19/14 1314 MR#: [id number] Acct: [id number] Name: CATHLEEN ARRIAGA Rep #: [id number] : 1940 74 From: Gurdeep Huang MD [...] Date Dictated: 10/19/14 1314 Date Transcribed: 10/19/141740 Regional Maintenance Manager: Signed 23-Sep-2014 12 Lead Electrocardiogram Result: Comments: See Note; NOTES: [facility] Cardiovascular Services [address] [place] [address] 12 Lead EKG 09/22/14 1440 MR#: [id number] Acct: [id number] Name: JARON ARRIAGA Rep #: [id number] : 1940 74 From: Peewee Cotto MD [...] Abnormal ECG Confirmed by PEEWEE COTTO ([id number]), book or script editor CAROLEE MARIEE ([id number]) on 09/23/2014 2: 44:4 7 PM Referred By: TRAV Confirmed By:PEEWEE COTTO 09/23/14 1444 Date Peewee Cotto MD CC: Minerva Vergara MD Date Dictated: 09/22/14 1440 Date Transcribed: 09/22/14 144 Regional Maintenance Manager: Signed 22-Sep-2014 Discharge Instruction Result: Comments: See Note; NOTES: [facility] Medical Records Department [address] [place] [address] Discharge Instruction 09/22/14 1616 MR#: [id number] Acct: [id number] Name: IRIS ARRIAGA Rep #: [id number] : 1940 74 From: Kermit Verduzco MD PCP: Minerva Vergara MD Status: [facility] ER ED Disposition - Plan for ED Patient: Disposition: Home Chief Complaint: Sync ope Instructions: ED Hypotension, Orthostatic What to do if you have Problems For any increased pain, shortness of breath, bleeding, nausea or vomiting, chest pain, or any unexpected problems, co ntact your doctor. Call Doctors [facility] ) or report to the closest Emergency Room. Call 911 if necessary. 09/22/14 1725 <Electronically signed by Kermit Verduzco MD> Date Kermit Verudzco MD Cosigner Signature (If Indicated): Date CC: Minerva Vergara MD 22-Sep-2014 Emergency Department Summary Result: Comments: See Note; NOTES: [facility] Medical Records Department [address] [place] [address] Emergency Department Summary MR#: [id number] Acct: [id number] Name: IRIS ARRIAGA Rep #: [id number] : 1940 74 From: Kermit Verduzco MD PCP: Minerva Vergara MD Status: [facility] ER DATE OF SERVICE: 09/22/2014 CHIEF COMPLAINT: [...] stood up quickly and went over to commissary manager, 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 She [...] Discharge. Kermit Verduzco MD T: NTS JOB: [id number] 09/22/14 0705 <Electronically signed by Kermit Verduzco MD> Date Kermit Verduzco MD CC: Minerva Vergara MD Date Dictated: 09/22/141614 Date Transcribed: 09/22/141614 Regional Maintenance Manager: Signed 22-Sep-2014 Chest PA and Lateral Result: Comments: See Note; NOTES: [facility] Imaging Services [address] [address] Radiology Report MR#: [id number] Acct: [id number] Name: IRIS ARRIAGA Rep #: [id number] : 1940 F 74 From: Ed Fink MD PCP: Minerva Vergara MD Status: REG ER Study: Chest PA and Lateral Date of Exam: 09/22/14 Exam# [id number] Ordering Dr: Kermit Verduzco MD ROWAN DY: [...] CC: Minerva Vergara MD; Kermit Verduzco MD Regional Maintenance Manager: Signed Family History Unknown Family Member [...] Status: 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 [id number] ([id number]) Calcium 9.4 mg/dL (Normal) Range: 8.7-10.3 Carbon [...] 8-27 Glucose 72 mg/dL (Normal) Range: 65-99 60-Lvd-12870:13 Pathology Report Comments: PERFORMED BY: CYCIN [facility] Nfgz6362 [facility] [id number] BY: KWCYT [facility] Cyto Bdoid74553 [facility] [id number] Clinical Information: [id number] See MATER Comments: Material submitted: .ABDOMINAL BIOPSYClinical history: .SK R/O SCC Note (Normal) Diagnosis:ABDOMINAL BIOPSY:BENIGN KERATOSIS, IRRITATED WITH SQUAMOUS PAPILLOMA FEATURES.NEGATIVE FOR DYSPLASIA AND MALIGNANCY..01/06/2018 Electronically signed: .Aiden Menard MD, PathologistGross description: .RECEIVED IN FORMALIN LABE LED IRIS ARRIAGA DESIGNATED ABDOMEN IS A 1.5 X0.7 X 0.3 CM SHAVED WHITE EXOPHYTIC LESION WITH A PAPILLATED SURFACE. THESURGICAL MARGIN IS INKED BLACK. SERIALLY SECTIONED AND ENTIRELY SUBMITTEDIN ONE CASSETTE.BCO/SMIPathologist provided ICD-10:D21.4, L82.1CPT .647195 47-Sor-531055:35 Comprehensive Metabolic Profil Comments: [facility] [address] [place], [place], [address] GAP 8 (Normal) Range: 5-15 CO2 33.0 mmol/L (Abnormal) Range: 21.0-32.0 CL 95 mmol/L (Abnormal) Range: 98-107 K 3.6 mmol/L (Normal) Range: 3.5-5.1 NA 136 mmol/L (Normal) Range: 136-145 T BILI 0.70 mg/dL (Normal) Range: 0.20-1.00 ALT 23 U/L (Normal) Range: 13-56 Comments: Please note revised ALT reference range vnuygnums50/28/2018. ALK P 79 U/L (Normal) Range: 45-117 [...] Comments: Please note revised GLUCOSE reference range pctufctay89/02/2018. 09-Opj-329611:35 Phosphorus Comments: [facility] [address] [place], [place], [address] PHOS 4.0 mg/dL (Normal) Range: 2.5-4.9 23-Ewm-246775:35 Uric Acid Comments: [facility] [address] [place], [place], [address] URIC 10.9 mg/dL (Abnormal) Range: 2.6-6.0 Comments: The drugs N-Acetylcysteine and Metamizole may falselydepress this assay. 14-Svm-155264:19 Metabolic Panel, Comments: fax a copy to Dr. Tucker [phone] Huang [phone]; A courtesy copy of this report has been sent [phone], .PATIENT NOT FASTINGPERFORMED BY: [facility] Dub cm0841 Jyotsna Clements ([address]) x [place] [id number] Information: HARD DRAW/BUTTERFLY ALT (SGPT) 19 [iU]/L [...] Glucose, Serum 97 mg/dL (Normal) Range: 65-99 15-Etu-081125:56 Basic Metabolic Profile (BMP) Comments: Order Date: 08/07/17Order Info: 0667-1 - BMPComments: now stat and prnWThe [facility] [address] [place], [place], [address] GAP 8 (Normal) Range: 5-15 CO2 29.0 [...] 7-18 GLU 80 mg/dL (Normal) Range: 70-110 48-Wid-709811:23 CREATININE FINGERSTICK Comments: [facility] LaboratoryPoint of Icwk[address] [place], [place] [address] CREATININE WB 1.3 mg/dL (Abnormal) Range: 0.55-1.02 11-Sep-20171:20 CBC WITH MANUAL DIFF Comments: PATIENT NOT FASTINGPERFORMED BY: [facility] Culjcm7378 [facility] [id number] Information: NURSE DRAW (45505) Immature Grans (Abs) 0.0 {x10E3/uL} (Normal) Range: [...] Panel, Comprehensive Comments: PATIENT NOT FASTINGPERFORMED BY: [facility]CoSt. Francis Medical CenterZwthdm5166 [facility] [id number] (67[address]) ALT (SGPT) 11 [iU]/L (Normal) Range: 0-32 [...] 101 mg/dL (Abnormal) Range: 65-99 11-Sep-20171:20 URINALYSIS (85551) Comments: PATIENT NOT FASTINGPERFORMED BY: [facility]CoSt. Francis Medical CenterIdjntt4546 [facility] [id number] Microscopic Examination MICNIP (Normal) Comments: Microscopic not indicated and not performed. Nitrite, Urine Negative (Normal) Urobilinogen,Semi-Qn 1.0 mg/dL (Normal) Range: 0.2-1.0 Bilirubin Negative (Normal) Occult Blood Negative (Normal) Ketones Negative (Normal) Glucose Negative (Normal) Protein Trace (Normal) WBC Esterase Negative (Normal) Appearance Clear (Normal) Urine-Color Yellow (Normal) pH 7.0 (Normal) Range: 5.0-7.5 Specific Avella 1.018 (Normal) Range: 1.005-1.030 4-Htq-929359:34 Basic Metabolic Profile (BMP) Comments: [facility] [address] [place], [place], [address] GAP 10 (Normal) Range: 5-15 CO2 26.0 [...] 7-18 GLU 92 mg/dL (Normal) Range: 70-110 83-Tcg-430433:03 Basic Metabolic Profile (BMP) Comments: Order Date: 05/01/17Order Info: 0667-1 - *BMPComments: Reason:[facility] [address] [place], [address] GAP 5 (Normal) Range: 5-15 CO2 28.0 [...] 7-18 GLU 64 mg/dL (Abnormal) Range: 70-110 91-Yds-347380:16 Renal function Panel (75429) Comments: PATIENT NOT FASTINGPERFORMED BY: [facility]CoSt. Francis Medical CenterMvatva3429 [facility] [id number] Albumin, Serum 4.3 g/dL (Normal) Range: 3.5-4.8 [...] Glucose, Serum 91 mg/dL (Normal) Range: 65-99 84-Mmf-68791:15 Urinalysis, Complete Comments: Order Date: 03/31/17How was Urine Obtained? 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, [address] MUCUS, URINE 0 SEEN {/hpf} [...] CLARITY Sl. Cloudy (Normal) COLOR Yellow (Normal) 83-Gex-46580:45 Lactic Acid Comments: Yes/No query for Sepsis Lactate Rule [facility] [address]gt[address] [place], [address] LACTIC ACID 0.8 mmol/L (Normal) Range: 0.4-2.0 :39 BNP,B-Type NATRIURETIC PEPTIDE Comments: [facility] [address]brex[address]zc6026 [facility] [place], [address] B-TYPE HUMBLE PEP 1017.0 pg/mL (Abnormal) Range: 0-100 78-Blu-07970:39 CBC W/Diff, Automated Comments: [facility] [address] [place], [address] ANISO 1+ (Normal) Absolute Lymph [...] 4.2-5.4 WBC 13.6 K/mm3 (Abnormal) Range: 4.4-11.0 15-Cau-76044:39 Comprehensive Metabolic Profil Comments: 'TROP' Serial specimen #1, #2, #3, or #4: 1WThe [facility] [address]uzwi[address] [place], [address] GAP 8 (Normal) Range: 5-15 CO2 26.0 [...] Serial specimen #1, #2, #3, or #4: 1[facility] [address] [place], [place], [address] TROPONIN-I 0.06 ng/mL (Normal) Comments: TROPONIN-I EXPECTED VALUES <0.05 NEGATIVE 0.06 - 0.59 AT RISK OF NM > OR = 0.60 SUGGEST NM :03 Bedside Glucose Comments: [facility] LaboratoryPoint of Tkdi[address] [place] [address] BEDSIDE GLU 146 mg/dL (Abnormal) Range: 70-110 Comments: MANAGEMENT OF PATIENT CARE PER NURSING PROTOCOL 50-Flu-148603:25 Vitamin D,25 Hydroxy Comments: Order Date: 01/17/17Order Info: 0788-1 - *Hepatic Function Panel3 ORDERING DOCTORS:REINA REID ORDERED: LIVER LIPIDDR.CAITLIN ORDERD: BMPMARY CIESA ORDERED: TSH, VITD, S8CTusybqb [facility] pital Labora [address] [place], [address] Vitamin D 25-OH 35.2 ng/mL (Normal) Comments: Vitamin D 25(OH) Status Range Deficiency <20 ng/mL (50nmol/L) Insuffciency 20 - 30 ng/mL (50 - 75 nmol/L) Sufficiency 30 - 100 ng/mL (75 - 250 nmol/L) Toxicity >100 ng/mL (>250 nmol/L) 71-Kja-259985:20 Basic Metabolic Profile (BMP) Comments: Order Date: 01/17/17Order Info: 0788-1 - *Hepatic Function Panel3 ORDERING DOCTORS:REINA REID ORDERED: LIVER LIPIDDR.CAITLIN ORDERD: BMPMARY CIESA ORDERED: TSH, VITD, Q6YKtzzw Date: 01/17/17Order Info: 64740-1 - *Lipid Profile CC PCPComments: 12 hours fasting, may have water.[facility] [address] [place], [address] GAP 6 (Normal) Range: 5-15 CO2 31.0 [...] 7-18 GLU 109 mg/dL (Normal) Range: 70-110 19-Gcq-533733:20 Lipid Profile Comments: Order Date: 01/17/17Order Info: 0788- 1 - *Hepatic Function Panel3 ORDERING DOCTORS:REINA REID ORDERED: LIVER LIPIDDR.NOVY ORDERD: BMPMARY CIESA ORDERED: TSH, VITD, I0QGlkow Date: 01/17/17 Order Info: 25141-2 - *Lipid Profile CC PCPComments: 12 hours fasting, may have water.[facility] [address] [place], [place], [address] VLDL 20 mg/dL (Normal) Range: 5-40 LDL [...] 200-240 mg/dL Borderline >240 mg/dL High Risk 14-Fhn-856759:20 Liver Profile Comments: Order Date: 01/17/17Order Info: 0788- 1 - *Hepatic Function Panel3 ORDERING DOCTORS:REINA REID ORDERED: LIVER LIPIDDR.NOVY ORDERD: BMPMARY CIESA ORDERED: TSH, VITD, O2YOfswp Date: 01/17/17 Order Info: 44936-4 - *Lipid Profile CC PCPComments: 12 hours fasting, may have water.[facility] [address] [place], [place], [address] D BILI 0.24 mg/dL (Normal) Range: 0.00-0.30 T BILI 0.60 mg/dL (Normal) Range: 0.20-1.00 ALT 27 U/L (Normal) Range: 12-78 ALK P 84 U/L (Normal) Range: 45-117 AST 27 U/L (Normal) Range: 15-37 GLOB 3.7 g/dL (Abnormal) Range: 2.3-3.5 ALB 3.8 g/dL (Normal) Range: 3.4-5.0 T PROT 7.5 g/dL (Normal) Range: 6.4-8.2 69-Num-140401:20 T4 Free Direct Comments: Order Date: 01/17/17Order Info: 0788- 1 - *Hepatic Function Panel3 ORDERING DOCTORS:REINA REID ORDERED: LIVER LIPIDDR.NOVY ORDERD: BMPYUDYY CIGLENYSA ORDERED: TSH, VITD, J8UUfink Date: 01/17/17 Order Info: 04103-7 - *Lipid Profile CC PCPComments: 12 hours fasting, may have water.[facility] [address] [place], [place], [address] T4 FREE DIRECT 1.51 ng/dL (Abnormal) Range: 0.76-1.46 45-Vtu-441978:20 Thyroid Stim Hormone (TSH) Comments: Order Date: 01/17/17Order Info: 0788-1 - *Hepatic Function Panel3 ORDERING DOCTORS:REINA REID ORDERED: LIVER LIPIDDR.NOVY ORDERD: BMPMARY CIESA ORDERED: TSH, VITD, V6JCkxxw Date: 01/17/17Order Info: 50287-2 - *Lipid Profile CC PCPComments: 12 hours fasting, may have water.[facility] [address] [place], [address] TSH 3.02 {uIU/mL} (Normal) Range: 0.358-3.74 83-Xvm-212159:00 Pathology Report Comments: PERFORMED BY: [facility] Rluud14897 [facility] [id number] BY: [facility] Dermatopathology Lhkynso437 [facility] [address] [id number] Information: [id number] See MATER Comments: Material submitted: .SHAVE BIOPSY OF RIGHT ABDOMENClinician provided ICD-10:L82.1Clinical history: . Note (Normal) Diagnosis:BENIGN VERRUCAL KERATOSIS.02/08/2017Electronically signed: .Gege Reece MD, DermatopathologistGross description: .SUBMITTED IN FORMALIN LABELED IRIS ARRIAGA AND IS DESIGNATEDRIGHT ABDOMEN IS A FRAGMENT OF FERGUSON TISSUE THAT MEASURES 1.4 X .8X .3 CM. THE MARGINS ARE INKED BLUE. THE SPECIMEN IS TRISECTEDAND SUBMITTED IN TOTO.XJW/BXSPathologist provided ICD-10:D23.5CPT .963237 41-Gry-924614:12 Basic Metabolic Profile (BMP) Comments: Order Date: 01/15/17Order Info: 0667-1 - *BMPComments: Reason:[facility] [address] [place], [address] GAP 5 (Normal) Range: 5-15 CO2 32.0 [...] 7-18 GLU 82 mg/dL (Normal) Range: 70-110 5-Dww-629664:04 Basic Metabolic Profile (BMP) Comments: Order Date: 01/08/17Order Info: 0667-1 - *BMPComments: Reason: BMP: 1 weekTri[facility] [address]dtzf[address] [place], [address] GAP 11 (Normal) Range: 5-15 CO2 28.0 [...] <126 mg/dLsuggests IMPAIRED HOMEOSTASIS per A.D.A. criteria. 06-Wff-460455:28 Lipid Profile Comments: Order Date: 06/18/16Order Info: 0788- 1 - *Hepatic Function PanelLIVER AND LIPID WERE ORDERED BY INE LEVEL ORDERED BY Date: 06/18/16Order Info: 60780-7 - *Lipid Profi le CC PCPComments: 12 hours fasting, may have water.[facility] [address] [place], [place], [address] VLDL 14 mg/dL (Normal) Range: 5-40 LDL [...] 200-240 mg/dL Borderline >240 mg/dL High Risk 33-Dqh-606847:28 Liver Profile Comments: Order Date: 06/18/16Order Info: 0788- 1 - *Hepatic Function PanelLIVER AND LIPID WERE ORDERED BY ATININE LEVEL ORDERED BY Date: 06/18/16Order Info: 18994-7 - *Lipid Profi le CC PCPComments: 12 hours fasting, may have water.[facility] [address] [place], [place], [address] D BILI 0.48 mg/dL (Abnormal) Range: 0.00-0.30 T BILI 1.10 mg/dL (Abnormal) Range: 0.20-1.00 ALT 62 U/L (Normal) Range: 12-78 ALK P 94 U/L (Normal) Range: 45-117 AST 59 U/L (Abnormal) Range: 15-37 GLOB 3.3 g/dL (Normal) Range: 2.3-3.5 ALB 3.7 g/dL (Normal) Range: 3.4-5.0 T PROT 7.0 g/dL (Normal) Range: 6.4-8.2 66-Fvn-874559:28 Serum Creatinine AND GFR Comments: Order Date: 06/18/16Order Info: 0788-1 - *Hepatic Function PanelLIVER AND LIPID WERE ORDERED BY ATININE LEVEL ORDERED BY Date: 06/18/16Order Info: [id number] - *Lipid i ashley SOLOMON PCPComments: 12 hours fasting, may have water.[facility] [address] [place], [place], [address] EST GFR - AA 52 mL/min (Abnormal) Comments: GFR Calc EST GFR 43 mL/min (Abnormal) Comments: Non- GFR Calc CREAT,SERUM 1.29 mg/dL (Abnormal) Range: 0.55-1.02 Comments: The validity of the calculated GFR AND GFRAA in patients over70 years has not been determined. Clinical correlation isessential. 81-Lyh-401115:36 Anticardiolipin IgA,G,M Comments: [facility] (refer to report [...] Positive: >20 - 80 High Positive: >80 43-Ati-617342:36 Comprehensive Metabolic Profil Comments: [facility] [address] [place], [place], [address] GAP 4 (Abnormal) Range: 5-15 CO2 26.0 [...] 7-18 GLU 103 mg/dL (Normal) Range: 70-110 78-Txi-715342:36 Fact V Leiden Mutation Comments: [facility] (refer to report for specific site)refer to report for address and phone number COMMENT (Normal) Comments: Comment:Genetic counselors are available for health care providersto discuss results at [phone]).Methodology:DNA analysis of the Factor V gene was performed byallele-specific PCR. The d iagnostic sensitivity andspecificity is >99% for both. Molecular-based testing ishighly accurate, but as in any laboratory test, diagnosticerrors may occur. All test results must be combined withclin ical information for the most accurate interpretation.This test was developed and its performance characteristicsdetermined by [facility]. It has not been cleared or approvedby the Food and Drug Administra tion.References:Nicholas Armijo (1995). Clin Lab Med 16:169-186.Raul Cano, PhD, Cinthya May, PhD, Wilbur Clemente, PhD, Marly Wen MTammiSTammi, PhD, Lilia Way, PhD, Kaia Reynaga, PhD, Richard Juarez PhD, [facility] FACTOR V LEIDEN (Normal) Comments: Result: Negative [...] in the workup for venous thrombosis include [id number] mutation in the factor II (prothrombin) gene,protein S and C deficiency, and antithrombin deficiencies.Anticardiolipin antibody and lupus 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 an alysismay be appropriate for certain patients, as well ashomocysteine levels.Contact your local [facility] for information on how to orderadditional testing if desired. 59-Bdf-014528:36 Factor II, DNA Analysis Comments: [facility] (refer to report for specific site)refer to report for address and phone number COMMENT (Normal) Comments: Additional Information:Genetic Counselors are available for health care providersto discuss results at [phone]).Methodology:DNA analysis of the Factor II gene was performed by Louis grewal followed by restriction analysis. Thediagnostic sensitivity is >99% for both. All the tests mustbe combined with clinical information for the most accurateinterpretation. Molecular-based testing is highly accurate,but as in any laboratory test, diagnostic errors may occur.This test was developed and its performance characteristicsdetermined by [facility]. It has not been cleared or approvedby the Food and Drug Administration.Poort SR, et al. Blood. 1996; 88:2823-2277.Robert GUTIÉRREZ. Circulation. 2004; 110:e15-e18.Stanislav I, et al. Arterioscler Thromb Vasc Biol. 1999;19:700-703.Raul Cano, Ph D, Cinthya May, PhD, Wilbur Clemente, PhD, Marly Wen M.S., PhD, Lilia Way, PhD, Kaia Reynaga, PhD, Richard Juarez, PhD, [facility] COMMENT (Normal) Comments: Comment:A point mutation (B70250I) in the factor II (prothrombin)gene is the [...] individual mutations. This assay detects onlythe prothrombin U91842E mutation and does not measuregenetic abnormalities elsewhere in the genome. Otherthrombotic r isk factors may be pursued through systematicclinical laboratory analysis. These factors include nlwR933B (Leiden) mutation in the Factor V gene, plasmahomocysteine levels, as well as testing for defici encies ofantithrombin III, protein C and protein S. FACTOR II,DNA (Normal) Comments: Factor II, DNA Analysis NEGATIVE No mutation identified. 76-Lhc-038975:36 Partial Thromboplast Time Comments: [facility] [address] [place], [place], [address] PTT 28.3 s (Normal) Range: 24.1-36.2 28-Cql-705764:36 Prothrombin Time w/INR Comments: [facility] [address] [place], [place], [address] INR 1.3 (Normal) PROTIME 15.5 s (Abnormal) Range: 11.7-14.9 :39 CBC W/Diff, Automated Comments: Order Date: 12/02/16Order Info: 0184-1 - CBCDComments: coipy to Dr. jessie armendariz statOrder Date: 12/02/16Order Info: 0184-1 - CBCDComments: coipy to Dr. jessie armendariz statOrder Date: 12/02/16O rder Info: 0788-1 - LIVERComments: to stat copy to Dr. natalie armendarizTrihealth Bethesda [facility] Hospital [address] [place], [address] Absolute Lymph 1.13 {X10_3/ul} (Normal) Range: 0.83-4.51 [...] 4.2-5.4 WBC 8.8 K/mm3 (Normal) Range: 4.4-11.0 78-Rvc-95771:39 Liver Profile Comments: Order Date: 12/02/16Order Info: 0788-1 - LIVEROrder Date: 12/02/16Order Info: 0788-1 - LIVERComments: to stat copy to Dr. estrada [facility] [address] [place], [place], [address] D BILI 0.28 mg/dL (Normal) Range: 0.00-0.30 T BILI 0.80 mg/dL (Normal) Range: 0.20-1.00 ALT 33 U/L (Normal) Range: 12-78 ALK P 71 U/L (Normal) Range: 45-117 AST 30 U/L (Normal) Range: 15-37 GLOB 2.9 g/dL (Normal) Range: 2.3-3.5 ALB 3.8 g/dL (Normal) Range: 3.4-5.0 T PROT 6.7 g/dL (Normal) Range: 6.4-8.2 30-Awd-310636:38 URINE DAR CULTURE (NOREEN Comments: PATIENT NOT FASTINGPERFORMED BY: [facility] Sdeoxh1848 [facility] [id number] Information: SRC:UC COL COUNT) (53437) Antimicrobial MIHEAD (Normal) Comments: S = Susceptible; [...] Colonies/mL (Abnormal) Urine Final report Culture,Comprehensive (Abnormal) 20-Bsg-18737:33 CBC W/Diff, Automated Comments: Order Date: 10/31/16Order Info: 0184-1 - CBCDOrder Info: 36679-7 - SEDOrder Date: 10/31/16Order Info: 0184-1 - CBCDOrder Info: 14862-9 - SEDOrder Date: 10/31/16Order Info: 3040-3 - LIPASEW [facility] [address] [place], [address] Absolute Lymph 1.10 {X10_3/ul} (Normal) Range: 0.83-4.51 [...] 4.2-5.4 WBC 11.1 K/mm3 (Abnormal) Range: 4.4-11.0 22-Fym-35661:33 Comprehensive Metabolic Profil Comments: Order Date: 10/31/16Order Info: 0786-1 - CMPOrder Info: 1798-8 - AMYOrder Info: 3040-3 - LIPASEOrder Date: 10/31/16Order Info: 3040-3 - LIPASEComments: all [facility] [address] [place], [address] GAP 10 (Normal) Range: 5-15 CO2 26.0 [...] 7-18 GLU 86 mg/dL (Normal) Range: 70-110 04-Qzz-76157:33 Erythrocyte Sed Rate Comments: Order Date: 10/31/16Order Info: 0184-1 - CBCDOrder Info: 88111-5 - SEDOrder Date: 10/31/16Order Info: 0184-1 - CBCDOrder Info: [id number] - SEDOrder Date: 10/31/16Order Info: 3040-3 - LIPASEW [facility] [address] [place], [address] SED RATE 12 mm/h (Normal) Range: 0-30 :33 Lipase (00003) Comments: Order Date: 10/31/16Order Info: 0786- 1 - CMPOrder Info: 1798-8 - AMYOrder Info: 3040-3 - LIPASEOrder Date: 10/31/16Order Info: 3040-3 - LIPASEComments: all [facility] [address] [place], [address] LIPASE 216 U/L (Normal) Range: 73-393 :33 Amylase (65177) Comments: Order Date: 10/31/16Order Info: 0786- 1 - CMPOrder Info: 1798-8 - AMYOrder Info: 3040-3 - LIPASEOrder Date: 10/31/16Order Info: 3040-3 - LIPASEComments: all [facility] F[address]yswxtf[address] [facility] [address] [place], [address] QUENTIN 56 U/L (Normal) Range: 25-115 58-Ewp-76745:45 Urinalysis, Office (16838) UA - LEUKOCYTE ESTERASE Negative (Normal) UA - NITRITE Negative (Normal) URINE UROBILINGN NOREEN TIMED Normal mg/dL (Normal) UA - PROTEIN Negative mg/dL (Normal) UA - PH 6 (Abnormal) UA - BLOOD Non Hemolyzed Trace (Normal) UA - SPECIFIC GRAVITY 1.015 (Normal) UA - KETONES Negative mg/dL (Normal) UA - BILIRUBIN Negative (Normal) UA - GLUCOSE Negative (Normal) 63-Xkt-998043:00 Pathology Report Comments: PERFORMED BY: [facility] [facility] Cyto Ojhts38660 [facility] [id number] Information: [id number] See MATER Comments: Material submitted: .SHAVE BIOPSY [...] ARE 4 PIECES TOTAL./CORCOR/CORPathologist provided ICD-10:L82.1, B07.8CPT .863617 7-Kbd-969299:50 Basic Metabolic Profile (BMP) Comments: DR TUCKER IS ORDERING THE BMPOrder Date: 06/28/16OV Order #: [id number] [facility] Hospital [facility] [address] [place], [address] GAP 9 (Normal) Range: 5-15 CO2 28.0 [...] 7-18 GLU 89 mg/dL (Normal) Range: 70-110 9-Dgo-376541:50 Lipid Profile Comments: DR TUCKER IS ORDERING THE BMPOrder Date: 06/28/16OV Order #: [id number] Bethesda [facility] Hospital [address] [place], [place], [address] VLDL 14 mg/dL (Normal) Range: 5-40 LDL [...] 200-240 mg/dL Borderline >240 mg/dL High Risk 3-Qnf-536244:50 Liver Profile Comments: DR TUCKER IS ORDERING THE BMPOrder Date: 06/28/16OV Order #: [id number] Bethesda Butler Hospital [address] [place], [address] D BILI 0.11 mg/dL (Normal) Range: 0.00-0.30 [...] ORDERING THE BMPOrder Date: 06/28/16 Order #: [id number] Bethesda Butler Hospital [address] [place], [place], [address] T4 THYROXIN 12.8 ug/dL (Normal) Range: 4.8-13.9 9-Kkr-599197:50 Thyroid Stim Hormone (TSH) Comments: DR TUCKER IS ORDERING THE BMPOrder Date: 06/28/16 Order #: [id number] Bethesda Butler Hospital [address] [place], [place], [address] TSH 2.26 {uIU/mL} (Normal) Range: 0.358-3.74 68-Fwg-680642:26 URINE DAR CULTURE-IDENTIFICATN Comments: PATIENT NOT FASTINGPERFORMED BY: [facility]CoSt. [facility] CenterEuvacd0851 [facility] [id number] Information: SRC:ANDREW (60010) Result 1 ECV (Abnormal) Comments: Escherichia coli, [...] report Culture,Comprehensi (Abnormal) ve :38 Urinalysis, Office (05919) UA - LEUKOCYTE ESTERASE Negative (Normal) UA - NITRITE Negative (Normal) URINE UROBILINGN NOREEN TIMED Normal mg/dL (Normal) UA - PROTEIN Negative mg/dL (Normal) UA - PH 5 (Abnormal) UA - BLOOD Hemolyzed Trace (Normal) UA - SPECIFIC GRAVITY 1.010 (Normal) UA - KETONES Negative mg/dL (Normal) UA - BILIRUBIN Negative (Normal) UA - GLUCOSE Negative (Normal) 13-Icd-197350:02 Comprehensive Metabolic Profil Comments: [facility] [address]qsqhs[address] [place], [address] GAP 8 (Normal) Range: 5-15 CO2 27.0 [...] 7-18 GLU 85 mg/dL (Normal) Range: 70-110 64-Ptq-084340:02 T4 Total, Thyroxin Comments: [facility] [address]xtemwy[address] [place], [address] T4 THYROXIN 13.1 ug/dL (Normal) Range: 4.8-13.9 24-Epw-125514:02 Thyroid Stim Hormone (TSH) Comments: CMP IS FOR [facility]. [facility]NEYThe [facility] [address] [place], [address] TSH 1.34 {uIU/mL} (Normal) Range: 0.358-3.74 :25 COLON BIOPSY (CHOOSE See Note (Normal) Comments: [facility] [address] [place], [address] SITE) Comments: Patient: IRIS ARRIAGA : 1940 (76/F) Acct Num: [id number] Phys: Clifford Gifford Unit Num: [id number] Loc: EN Specimen: [id number] Received: 01/30/16 - 50 Spec Type: COLON BX TISSUES TISSUES: GROSS DESCRIPTION Received is one container labeled with the patient name and designated mid ascending polyp. The specimen consists of two irregular fragments of light tansoft tissue that in aggregate measure 0.3 x 0.2 x 0.1 cm. The specimen is totally submitted in one cassette. / SJ:juan j 01/30/16 TC:5 CPT:67316 HEADER OPERATION: Colonoscopy PRE-OP DI AGNOSIS: Screening TISSUE SUBMITTED: Mid ascending polyp MICROSCOPIC DESCRIPTION Slides are reviewed. MICROSCOPIC DIAGNOSIS Mid ascending colon polyp, biopsy: Fragments of tubular adenoma. AM:juan j 01/31/16 Signed [facility] 01/31/16 <signature on file> [id number] Basic Metabolic Profile (BMP) Comments: ORDERED BMPDR.REINA ORDERED TSH T4 LIPID [facility] [address]nyazuqu[address] [place], [address] GAP 6 (Normal) Range: 5-15 CO2 27.0 [...] 7-18 GLU 78 mg/dL (Normal) Range: 70-110 43-Rlk-094909:12 Lipid Profile Comments: ORDERED BMPDR.MOODISPAW ORDERED TSH T4 LIPID [facility] Qsgwhjxboq1858 [place], [address] VLDL 15 mg/dL (Normal) Range: 5-40 LDL [...] 200-240 mg/dL Borderline >240 mg/dL High Risk 54-Oly-008595:12 Liver Profile Comments: ORDERED BMPDR.MOODISPAW ORDERED TSH T4 LIPID [facility] Djzsoslfmv1465 [place], [address] D BILI 0.17 mg/dL (Normal) Range: 0.00-0.30 T BILI 0.50 mg/dL (Normal) Range: 0.20-1.00 ALT 37 U/L (Normal) Range: 12-78 ALK P 68 U/L (Normal) Range: 50-136 AST 26 U/L (Normal) Range: 15-37 GLOB 3.8 g/dL (Abnormal) Range: 2.3-3.5 ALB 3.5 g/dL (Normal) Range: 3.4-5.0 T PROT 7.3 g/dL (Normal) Range: 6.4-8.2 78-Odf-490038:12 T4 Total, Thyroxin Comments: ORDERED BMPDR.DELIOJOCELINE ORDERED TSH T4 [facility] Vndwehujcu8274 Nestor [place], [place], [address] T4 THYROXIN 14.3 ug/dL (Abnormal) Range: 4.8-13.9 73-Hwq-285665:12 Thyroid Stim Hormone (TSH) Comments: ORDERED BMPDR.DELIOISPAW ORDERED TSH T4 [facility] Prgpdryccu7972 Nestorlisa [place], [place], [address] TSH 2.32 {uIU/mL} (Normal) Range: 0.358-3.74 62-Ckh-68071:37 Rapid Flu (33741 x 2) Influenza A Ag neg (Normal) 17-Vbd-027461:28 Metabolic Panel, Basic Comments: PATIENT NOT FASTINGPERFORMED BY: [facility] Zreiqo4373 [facility] [id number] ([id number]) Calcium, Serum 8.7 mg/dL (Normal) Range: 8.7-10.3 [...] Glucose, Serum 70 mg/dL (Normal) Range: 65-99 72-Fsv-655341:28 CBC (Auto) (27847) Comments: PATIENT NOT FASTINGPERFORMED BY: [facility]CoSt. [facility] CenterGjlhon1998 [facility] [id number] Information: [id number] Platelets 224 {x10E3/uL} (Normal) Range: 150-379 RDW 14.8 % (Normal) Range: 12.3-15.4 MCHC 33.0 g/dL (Normal) Range: 31.5-35.7 MCH 31.9 pg (Normal) Range: 26.6-33.0 MCV 97 fL (Normal) Range: 79-97 Hematocrit 39.4 % (Normal) Range: 34.0-46.6 Hemoglobin 13.0 g/dL (Normal) Range: 11.1-15.9 RBC 4.08 {x10E6/uL} (Normal) Range: 3.77-5.28 WBC 8.1 {x10E3/uL} (Normal) Range: 3.4-10.8 13-Jqo-346170:51 URINE DAR CULTURE-IDENTIFICATN Comments: PATIENT NOT FASTINGPERFORMED BY: LabCoSt. Francis Medical CenterTyawsf2247 [facility] [id number] Information: [id number] (05961) Result 1 MUG (Normal) Comments: Mixed urogenital flora2,000 Colonies/mL Urine Culture,Comprehensive Final report (Normal) 94-Zdb-69344:28 Magnesium Comments: [facility] [address] [place], [address] MG 2.1 mg/dL (Normal) Range: 1.8-2.4 39-Uvz-53377:28 Potassium Comments: [facility] [address] [place], [address] K 5.0 mmol/L (Normal) Range: 3.5-5.1 67-Zxx-080398:12 LIPASE (40505) Comments: Test(s) Potassium, Serum called to Gina Vergara on 11/21/2015 at 03:54 ESTPATIENT NOT FASTINGPERFORMED BY: [facility]6370 [facility] [id number] Lipase, Serum 61 U/L (Abnormal) Range: 0-59 50-Fvr-997632:12 AMYLASE (59471) Comments: Test(s) Potassium, Serum called to [facility]ina [facility] on 11/21/2015 at 03:54 ESTPATIENT NOT FASTINGPERFORMED BY: SingspielSt. Francis Medical CenterJstyxa7734 [facility] [id number] Amylase, Serum 84 U/L (Normal) Range: 31-124 49-Bwo-944574:20 Urinalysis, Office (47234) UA - LEUKOCYTE ESTERASE Trace (Normal) UA - NITRITE Negative (Normal) URINE UROBILINGN NOREEN TIMED Normal mg/dL (Normal) UA - PROTEIN 100 mg/dL (Normal) UA - PH 6.0 (Normal) Comments: 5.5 UA - BLOOD Negative (Normal) UA - SPECIFIC GRAVITY 1.030 (Abnormal) UA - KETONES 15 mg/dL (Abnormal) UA - BILIRUBIN Moderate (Normal) UA - GLUCOSE Negative (Normal) 94-Pot-661325:12 Metabolic Panel, Basic Comments: Test(s) Potassium, Serum called to [facility] on 11/21/2015 at 03:54 ESTPATIENT NOT FASTINGPERFORMED BY: SingspielSt. Francis Medical CenterXljaze1354 [facility] [id number] (27202) Calcium, Serum 8.9 mg/dL (Normal) Range: 8.7-10.3 [...] Comments: Specimen received hemolyzed. Clinical correlation indicated. 99-Vst-671746:12 CBC WITH MANUAL DIFF Comments: Test(s) Potassium, Serum called to [employer] on 11/21/2015 at 03:54 ESTPATIENT NOT FASTINGPERFORMED BY: MISHA [facility] Gicety0044 [facility] [id number] Information: [id number] (38344) Immature Grans (Abs) 0.0 {x10E3/uL} (Normal) Range: [...] 3.77-5.28 WBC 16.1 {x10E3/uL} (Abnormal) Range: 3.4-10.8 4-Kmw-410375:50 Urinalysis, Complete Comments: Order Date: 11/15/15How was Urine Obtained? 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, [address] HYALINE CAST 5-10 SEEN {/lpf} (Normal) [...] (Normal) CLARITY Clear (Normal) COLOR Yellow (Normal) 1-Ffl-788862:00 Basic Metabolic Profile (BMP) Comments: [facility] [address]wq[address]ibkp[address] [place], [place], [address] GAP 6 (Normal) Range: 5-15 CO2 24.0 [...] 7-18 GLU 88 mg/dL (Normal) Range: 70-110 6-Eai-892095:00 CBC W/Diff, Automated Comments: [facility] [address]uaflkrk[address] [place], [address] SMEAR COMMENT SCANNED (Normal) Absolute Lymph 1.15 [...] 4.2-5.4 WBC 16.9 K/mm3 (Abnormal) Range: 4.4-11.0 2-Izd-369456:00 Lipase Comments: [facility] [address] [place], [address] LIPASE 446 U/L (Abnormal) Range: 73-393 5-Ark-628614:00 Liver Profile Comments: [facility] Lhjpxnggto2664 [facility] [address] [place], [place], [address] D BILI 0.06 mg/dL (Normal) Range: 0.00-0.30 T BILI 0.40 mg/dL (Normal) Range: 0.20-1.00 ALT 94 U/L (Abnormal) Range: 12-78 ALK P 66 U/L (Normal) Range: 50-136 AST 76 U/L (Abnormal) Range: 15-37 Comments: Moderate Hemolysis, Result may be falsely increased. GLOB 4.0 g/dL (Abnormal) Range: 2.3-3.5 ALB 3.3 g/dL (Abnormal) Range: 3.4-5.0 T PROT 7.3 g/dL (Normal) Range: 6.4-8.2 9-Ohp-504571:00 Thyroid Stim Hormone (TSH) Comments: [facility] [address] [place], [address] TSH 1.12 {uIU/mL} (Normal) Range: 0.358-3.74 9-Wrq-588446:18 Thyroid Stim Hormone (TSH) Comments: [facility] [address]td[address] [place], [place], [address] TSH 0.59 {uIU/mL} (Normal) Range: 0.358-3.74 46-Mkj-878991:18 Pathology Report Comments: PERFORMED BY: KWCYT [facility] [place] Cyto Ckgjz11547 [facility] [id number] BY: INDYL [facility] [address]gwe[address] [place] [address] [id number] BY: LX [facility] Vlmtpxb12266 [facility] [id number] Information: [id number] See MATER Comments: Material submitted: .SHAVE CHESTClinician provided ICD-10:D49.2Clinical history: .CHANGE LESION RED ITCH Note (Normal) Diagnosis:SHAVE CHEST:HYPERTROPHIC, INFLAMED ACTINIC KERATOSIS..EIS/09/01/2015 El ectronically signed: .Camila Bright MD, PathologistGross description: .SUBMITTED IN FORMALIN LABELED IRIS ARRIAGA AND YADI CROWLEY IS A FRAGMENT OF FERGUSON/YELLOW TISSUE THAT MEASURES0.6 X 0.5 X 0.4 CM. THE MARGINS ARE INKED YELLOW. THESPECIMEN IS BISECTED AND SUBMITTED IN TOTO.XJW/TMZPathologist provided ICD-10:L57.0CPT .233462 10-Buh-006416:40 Basic Metabolic Profile (BMP) Comments: 'TROP' Serial specimen #1, #2, #3, or #4: [address] [place] [address] [address]zgpe0550 [place], [address] GAP 7 (Normal) Range: 5-15 CO2 27.0 [...] 7-18 GLU 76 mg/dL (Normal) Range: 70-110 60-Irs-308413:40 BNP,B-Type NATRIURETIC PEPTIDE Comments: [facility] Vikjvfcktc[address] [place], [place], [address] B-TYPE HUMBLE PEP 406.4 pg/mL (Abnormal) Range: 0-100 83-Cag-179895:40 CBC W/Diff, Automated Comments: [facility] Rxgbxkniws59[address] [place], [place], [address] Absolute Lymph 1.25 {X10_3/ul} (Normal) Range: 0.83-4.51 [...] 4.2-5.4 WBC 9.2 K/mm3 (Normal) Range: 4.4-11.0 20-Mmm-882057:40 Troponin-I Comments: 'TROP' Serial specimen #1, #2, #3, or #4: [facility] Pjpnwgftiy38[address] [place], [address] TROPONIN-I 0.03 ng/mL (Normal) Comments: TROPONIN-I EXPECTED VALUES <0.05 NEGATIVE 0.06 - 0.59 AT RISK OF NM > OR = 0.60 SUGGEST NM 63-Ioe-367677:25 Urinalysis, Complete Comments: Order Date: 08/09/15How was Urine Obtained? [facility]ATCHTri[facility] Euzcyxlfmq7541[place], [address] MUCUS, URINE 0 SEEN {/hpf} [...] (Normal) CLARITY Clear (Normal) COLOR Straw (Normal) 10-Mtk-017467:26 Basic Metabolic Profile (BMP) Comments: 'TROP' Serial specimen #1, #2, #3, or #4: [address] [place] [address] Qciomqxidn8567 Nest[address]lisa [place], [place], [address] GAP 4 (Abnormal) Range: 5-15 CO2 29.0 [...] 7-18 GLU 66 mg/dL (Abnormal) Range: 70-110 45-Obk-149244:26 CBC W/Diff, Automated Comments: [facility] [address]wpkvyg4[address] [place], [place], [address] SMEAR COMMENT SCANNED (Normal) Absolute Lymph 2.04 [...] 4.2-5.4 WBC 18.6 K/mm3 (Abnormal) Range: 4.4-11.0 75-Dms-610152:26 Prothrombin Time w/INR Comments: [facility] Tuvppjtvpj29[address] [place], [address] INR 1.1 (Normal) PROTIME 14.0 s (Normal) Range: 11.7-14.9 27-Yqq-694170:26 Troponin-I Comments: 'TROP' Serial specimen #1, #2, #3, or #4: 1[facility] [address]ifljdhuoa[address] [place], [address] TROPONIN-I < 0.02 ng/mL (Normal) Comments: TROPONIN-I EXPECTED VALUES <0.05 NEGATIVE 0.06 - 0.59 AT RISK OF NM > OR = 0.60 SUGGEST NM 97-Lyp-873081:02 Bilirubin, Direct Comments: ORDERED LIPID,LIVERDRCLOVER ORDERED CBCD,TSH,LIPID,CMP,[facility] Karaqbhemr71[address] [place], [address] D BILI 0.15 mg/dL (Normal) Range: 0.00-0.30 42-Jrz-967840:02 CBC W/Diff, Automated Comments: [facility] Zebweivqus340[address] [place], [address] Absolute Lymph 0.99 {X10_3/ul} (Normal) Range: 0.83-4.51 [...] 4.2-5.4 WBC 7.5 K/mm3 (Normal) Range: 4.4-11.0 41-Nds-605620:02 Comprehensive Metabolic Comments: ORDERED LIPID,LIVERDRCLOVER ORDERED CBCD,TSH,LIPID,CMP,[facility] Hunlsxmzmp9250 [place], [address] Profil GAP 8 (Normal) Range: 5-15 CO2 [...] 7-18 GLU 80 mg/dL (Normal) Range: 70-110 14-Kgd-677899:02 Lipid Profile Comments: ORDERED LIPID,LIVERDRCLOVER ORDERED CBCD,TSH,LIPID,CMP,[facility] Oiyynueccn99[address] [place], [address] VLDL 18 mg/dL (Normal) Range: [...] 200-240 mg/dL Borderline >240 mg/dL High Risk 67-Fwp-971796:02 Thyroid Stim Hormone Comments: ORDERED LIPID,LIVERDRCLOVER ORDERED CBCD,TSH,LIPID,CMP,[facility] Rzzumtznfa2424 [place] [place], [address] (TSH) TSH 1.37 {uIU/mL} (Normal) Range: 0.358-3.74 59-Bpl-312390:02 Urinalysis, Complete Comments: How was Urine Obtained? [facility] Qxkvhhvsar76[address] [place], [address] MUCUS, URINE 0 SEEN {/hpf} [...] (Normal) CLARITY Clear (Normal) COLOR Straw (Normal) 47-Lej-861103:40 Basic Metabolic Profile (BMP) Comments: REDRAW. PREVIOUS SPECIMEN REJECTED DUE TOHEMOLYSIS. 06/06/15 1526 Blanca De La Cruz.[facility] Asapeonfos5938 [place], [place], [address] GAP 6 (Normal) Range: 5-15 CO2 28.0 [...] <126 mg/dLsuggests IMPAIRED HOMEOSTASIS per A.D.A. criteria. 55-Fts-919120:10 CBC W/Diff, Automated Comments: [facility] Hhgaobndjr[address] [place], [place], [address] Absolute Lymph 1.33 {X10_3/ul} (Normal) Range: 0.83-4.51 [...] 4.2-5.4 WBC 9.3 K/mm3 (Normal) Range: 4.4-11.0 :16 Renal function Panel Comments: PATIENT NOT FASTINGPERFORMED BY: [facility] Lvarpv7835 [facility] [id number] Information: [id number] (05591) Albumin, Serum 3.6 g/dL (Normal) Range: 3.5-4.8 [...] (Abnormal) Range: 65-99 Comments: Client Requested Flag 31-Crz-822921:57 CK-MB Quantitative and Index Comments: Serial Specimen #1, #2 or #3? 2Comments: Should be drawn 2H after initial Troponin obtained'TROP' Serial specimen #1, #2, #3, or #4: 2Test performed at:[facility] [address] [place] [address] CPKMB 1.1 ng/mL (Normal) Range: 0.0-5.0 Comments: CK-MB and RI Interpretation MB Relative Index Non-AMI <or= 5 NA Indeterminate > 5 <or= 4 AMI > 5 > 4 CPK TOTAL 48 U/L (Normal) Range: 26-192 67-Rcx-144263:57 Troponin-I Comments: Serial Specimen #1, #2 or #3? 2Comments: Should be drawn 2H after initial Troponin obtained'TROP' Serial specimen #1, #2, #3, or #4: 2Test performed at:[address] [place] [address] TROPONIN-I < 0.02 ng/mL (Normal) Comments: TROPONIN-I EXPECTED VALUES <0.05 NEGATIVE 0.06 - 0.59 AT RISK OF NM > OR = 0.60 SUGGEST NM 94-Ihm-765049:33 Comprehensive Metabolic Profil Comments: Test performed at:[facility] [address] [place] [address] GAP 6 (Normal) Range: 5-15 [...] Comments: Please note revised CREATININE reference range yshthutqd75/22/2015. BUN 35 mg/dL (Abnormal) Range: 7-18 GLU 53 mg/dL (Abnormal) Range: 70-110 42-Vkg-342306:33 CRP Comments: Test performed at:[facility] [address] [place] [address] C-REACTIVE PROT < 2.90 mg/L (Normal) Range: 0.0-3.0 Comments: C-Reactive Protein (CRP) provides useful information for thediagnosis, therapy and monitoring of inflammatory processesand associated diseases. For the evaluation of Relative Riskfor Cardiovascular Dise ase, a High Sensitivity CRP (HSCRP)should be ordered. 68-Myw-202135:33 Erythrocyte Sed Rate Comments: Test performed at:[facility] [address] [place] [address] SED RATE 7 mm/h (Normal) Range: 0-30 64-Sxg-948814:38 URINE DAR CULTURE-NOREEN COL Comments: PATIENT NOT FASTINGPERFORMED BY: MISHA [facility] Pmyyvb0694 [facility] [place] [id number] Information: SRC:URC [id number] COUNT (99493) Result 1 NG36 (Normal) Comments: No growth in 36 - 48 hours. Urine Culture,Comprehensive Final report (Normal) 60-Skr-081906:07 Urinalysis, Office (20808) UA - LEUKOCYTE ESTERASE Trace (Normal) UA - NITRITE Negative (Normal) URINE UROBILINGN NOREEN TIMED 2 mg/dL (Normal) UA - PROTEIN Negative mg/dL (Normal) UA - PH 5.0 (Normal) UA - BLOOD Negative (Normal) UA - SPECIFIC GRAVITY 1.015 (Normal) UA - KETONES Small mg/dL (Normal) UA - BILIRUBIN Negative (Normal) UA - GLUCOSE Negative (Normal) 08-Feb-20159:39 Pathology Report Comments: PERFORMED BY: KingX StudiosCYT [facility] [place] Cyto Gcqdy22001 [facility] [id number] BY: [facility] Dermatopathology Awneroy[address] [id number] Information: [id number] See MATER Comments: Material submitted: .SHAVE BIOPSY [...] HOLOGIC CORRELATIONIS RECOMMENDED.02/13/2015Electronically signed: .Gege Reece MD, [place] topathologistGross description: .RECEIVED IS A CONTAINER LABELED IRIS ARRIAGA AND DESIGNATEDUPPER LESION ON CHEEK. IN FORMALIN IS A FERGUSON TISSUE MEASURING 4 X4 X 1 MM. IT IS INKED PURPLE, BISECTED, AND BOTH HALVES ARESUBMITTED IN A SINGLE CASSETTE.COR/BXSPathologist provided ICD-9:686.9, 682.0CPT .763340, 181667, 901901 64-Fed-219695:29 T4 Total, Thyroxin Comments: PER PT ONLY TSH AND T4 TODAYTest performed at:[facility] [address] [place] [address] T4 THYROXIN 13.2 ug/dL (Normal) Range: 4.8-13.9 69-Brn-931256:29 Thyroid Stim Hormone (TSH) Comments: PER PT ONLY TSH AND T4 TODAYTest performed at:[facility] [address] [place] [address] TSH 3.74 {uIU/mL} (Normal) Range: 0.358-3.74 34-Iij-582522:17 URINE DAR CULTURE-NOREEN COL Comments: PATIENT NOT FASTINGPERFORMED BY: [facility] Intyrv3994 [facility] [id number] Information: SRC: URINE COUNT ([id number]) Result 1 NG36 (Normal) Comments: No growth in 36 - 48 hours. Urine Culture,Comprehensive Final report (Normal) 91-Spn-422112:48 Urinalysis, Office (75636) UA - LEUKOCYTE ESTERASE Negative (Normal) UA - NITRITE Negative (Normal) URINE UROBILINGN NOREEN TIMED Normal mg/dL (Normal) UA - PROTEIN Negative mg/dL (Normal) UA - PH 6.0 (Normal) Comments: 5.5 UA - BLOOD Negative (Normal) UA - SPECIFIC GRAVITY 1.010 (Normal) UA - KETONES Negative mg/dL (Normal) UA - BILIRUBIN Negative (Normal) UA - GLUCOSE Negative (Normal) 57-Lhq-227238:31 Basic Metabolic Profile (BMP) Comments: Test performed at:[facility] [address]abpj[address] [place], [place] [address] GAP 5 (Normal) Range: 5-15 CO2 27.0 mmol/L (Normal) Range: 21.0-32.0 CL 103 mmol/L (Normal) Range: 98-107 K 4.8 mmol/L (Normal) Range: 3.5-5.1 NA 135 mmol/L (Abnormal) Range: 136-145 CA 8.7 mg/dL (Normal) Range: 8.5-10.1 BUN/CRE 16.4 {RATIO} (Normal) Range: 10-20 CREAT,SERUM 1.1 mg/dL (Abnormal) Range: 0.6-1.0 BUN 18 mg/dL (Normal) Range: 7-18 GLU 89 mg/dL (Normal) Range: 70-110 48-Abq-812964:31 Lipid Profile Comments: Test performed at:[facility] [address] [place] [address] VLDL 22 mg/dL (Normal) Range: 5-40 [...] 200-240 mg/dL Borderline >240 mg/dL High Risk 43-Pjy-187740:31 Liver Profile Comments: Test performed at:[facility] Neoocowuax[address] [place] [address] D BILI 0.10 mg/dL (Normal) Range: 0.00-0.30 T BILI 0.30 mg/dL (Normal) Range: 0.00-4.00 ALT 35 U/L (Normal) Range: 12-78 ALK P 85 U/L (Normal) Range: 50-136 AST 38 U/L (Abnormal) Range: 15-37 GLOB 3.6 g/dL (Normal) Range: 2.7-4.2 ALB 3.7 g/dL (Normal) Range: 3.4-5.0 T PROT 7.3 g/dL (Normal) Range: 6.4-8.2 40-Ayz-000123:31 T4 Total, Thyroxin Comments: Test performed at:[facility] [address] [place] [address] T4 THYROXIN 14.9 ug/dL (Abnormal) Range: 4.8-13.9 :31 Thyroid Stim Hormone (TSH) Comments: Test performed at:[facility] [address] [place] [address] TSH 2.32 {uIU/mL} (Normal) Range: 0.358-3.74 :30 CBC W/Diff, Automated Comments: Test performed at:[facility] [address] [place] [address] Absolute Lymph 1.12 {X10_3/ul} (Normal) Range: [...] 4.2-5.4 WBC 8.8 K/mm3 (Normal) Range: 4.4-11.0 30-Yhn-173377:30 Urinalysis, Complete Comments: DR HUANG LIVER LIPID TSH T4 ONLYHow was Urine Obtained? CLEAN CATCHTest performed at:[facility] Mgpewmmpmr8649 [facility] [place] [address] HYALINE CAST 0-5 SEEN {/lpf} (Normal) Range: [...] CLARITY Sl. Cloudy (Normal) COLOR Yellow (Normal) 67-Idd-844627:09 CBC W/Diff, Automated Comments: Test performed at:[facility] Eqivxofqpe3140 [facility] [place] [address] Absolute Lymph 0.85 {X10_3/ul} (Normal) [...] 4.2-5.4 WBC 8.7 K/mm3 (Normal) Range: 4.4-11.0 71-Nsl-418230:09 Comprehensive Metabolic Profil Comments: 'TROP' Serial specimen #1, #2, #3, or #4: 1Test performed at:[facility] [address]fz[address] [place], [place] [address] GAP 5 (Normal) Range: 5-15 CO2 27.0 [...] <126 mg/dLsuggests IMPAIRED HOMEOSTASIS per A.D.A. criteria. 38-Gnv-863460:09 Troponin-I Comments: 'TROP' Serial specimen #1, #2, #3, or #4: 1Test performed at:[facility] [address]ktwd[address] [place], [place] [address] TROPONIN-I < 0.02 ng/mL (Normal) Comments: TROPONIN-I EXPECTED VALUES <0.05 NEGATIVE 0.06 - 0.59 AT RISK OF NM > OR = 0.60 SUGGEST NM 22-Wsh-038264:21 Rapid Flu (55941 x 2) Influenza A Ag neg (Normal) 8-Who-047778:05 TSH 6.19 {uIU/mL} (Abnormal) Range: 0.358-3.74 38-Puq-97949:54 CBCMD ANC 10.3 3/uL (Abnormal) Range: 2.0-7.7 [...] CHOL 151 mg/dL (Normal) Comments: <200 mg/dL Almlezsnd185-090 mg/dL Borderline>240 mg/dL High Risk :54 TSH 0.72 {uIU/mL} (Normal) Range: 0.358-3.74 31-Sbj-645904:37 Rapid Strep Test, Office (49180) Comments: neg Rapid Strep Test, Office Negative (Normal) 36-Sfc-449642:03 DAR CULTURE-OTHER (01950) Comments: PATIENT NOT FASTINGPERFORMED BY: [facility]CoSt. [facility] CenterXxnkoo1918 [facility] [id number] Information: SRC:THRT [id number] Result 1 RRF (Normal) Comments: Routine respiratory julia Upper Respiratory Culture Final report (Normal) 83-Bdp-239321:12 Urinalysis, Office (27207) UA - BILIRUBIN Negative (Normal) UA - BLOOD Hemolyzed Trace (Normal) UA - GLUCOSE Negative (Normal) UA - KETONES Negative mg/dL (Normal) UA - LEUKOCYTE ESTERASE Trace (Normal) UA - NITRITE Negative (Normal) UA - PH 6.0 (Normal) UA - PROTEIN Negative mg/dL (Normal) UA - SPECIFIC GRAVITY 1.010 (Normal) URINE UROBILINGN NOREEN TIMED 2 mg/dL (Normal) 03-Fee-664665:53 DEXA BONE DENSITY STUDY (HP) Radiology Report [...] Fink M.D.July 29, 2012 at 2:05:06 PM [id number] Signed GP/GP If you are the referring physician and would like to consult with theradiologist who provided this interpretation, please contact Aleida Osei at [phone]. If this radiologist is unavailable, youwil l be directed to another radiologist to assist. If you are a patient with a question regarding this report, pleasecontactyour referring physician directly. Professional Interpretation Provided By: [employer] karina, Phone , These documents contain legally protected [...] destructionofthese documents. Dictated on 07/29/12 1102 by Ronen Fink MDranscribed on 07/29/12 1409 by ITS IMPORTSign by Ed Covarrubias on 07/29/12 1410 Sign by: Ed Fink MD 67-Gek-270890:37 BILAT SCRN DIGITAL & CAD Radiology Report [...] Fink M.D.July 14, 2012 at 1:35:04 PM [id number] Signed GP/GP If you are the referring physician and would like to consult with theradiologist who provided this interpretation, please contact Aleida Osei at [phone]. If this radiologist is unavailable, youwill be directed to another radiologist to assist. If you are a patient with a questi on regarding this report, pleasecontactyour referring physician directly. Professional Interpretation Provided By: [employer], Phone , These documents contain legally prot [...] mg/dL Comments: Order Date: 02/06/12OV Order #: [id number] ID: [id number] Comments: DX = 272.4 JLS [...] 12 hours, may have water.OV Order #: [id number] Order #: [id number] Comments: Reason:Interface Comments: DX = 427.31 [facility] 02/07/12OV Order #: [id number] Comments: DX = 428.0 [facility] 02/07/12 Range: 0.00-0.30 [id number] CMP Comments: Order Date: 02/06/12OV Order #: [id number] ID: [id number] Comments: DX = 272.4 [facility] 02/07/12Diagnosis: V58.69 - LONG-TERM USE [...] 12 hours, may have water.OV Order #: [id number] Order #: [id number] Comments: Reason:Interface Comments: DX = 427.31 [facility] 02/07/12OV Order #: [id number] Comments: DX = 428.0 [facility] 02/07/12 GAP 6 (Normal) Range: [...] 7-18 GLU 92 mg/dL (Normal) Range: 70-110 [id number] LIPID Comments: Order Date: 02/06/12OV Order #: [id number] ID: [id number] Comments: DX = 272.4 [facility] 02/07/12Diagnosis: V58.69 - LONG-TERM USE [...] 12 hours, may have water.OV Order #: [id number] Order #: [id number] Comments: Reason:Interface Comments: DX = 427.31 [facility] 02/07/12OV Order #: [id number] Comments: DX = 428.0 [facility] 02/07/12 VLDL 13 mg/dL (Normal) [...] (Normal) Comments: Order Date: 02/06/12OV Order #: [id number] ID: [id number] Comments: DX = 272.4 JLS [...] 12 hours, may have water.OV Order #: [id number] Order #: [id number] Comments: Reason:Interface Comments: DX = 427.31 [facility] 02/07/12OV Order #: [id number] Comments: DX = 428.0 [facility] 02/07/12 Range: 2.5-4.9 [id number] T4 12.6 ug/dL (Normal) Comments: Order Date: 02/06/12OV Order #: [id number] ID: [id number] Comments: DX = 272.4 JLS [...] 12 hours, may have water.OV Order #: [id number] Order #: [id number] Comments: Reason:Interface Comments: DX = 427.31 [facility] 02/07/12OV Order #: [id number] Comments: DX = 428.0 [facility] 02/07/12 Range: 4.8-13.9 57-Kej-474286:57 T4F 1.76 ng/dL (Abnormal) Comments: Order Date: 02/06/12OV Order #: [id number] ID: [id number] Comments: DX = 272.4 [facility] 02/07/12Diagnosis: V58.69 - LONG-TERM USE [...] 12 hours, may have water.OV Order #: [id number] Order #: [id number] Comments: Reason:Interface Comments: DX = 427.31 [facility] 02/07/12OV Order #: [id number] Comments: DX = 428.0 [facility] 02/07/12 Range: 0.76-1.46 23-Tjh-637779:57 TSH 2.47 {uIU/mL} (Normal) Comments: Order Date: 02/06/12OV Order #: [id number] ID: [id number] Comments: DX = 272.4 [facility] 02/07/12Diagnosis: V58.69 - LONG-TERM USE [...] 12 hours, may have water.OV Order #: [id number] Order #: [id number] Comments: Reason:Interface Comments: DX = 427.31 [facility] 02/07/12OV Order #: [id number] Comments: DX = 428.0 [facility] 02/07/12 Range: 0.358-3.74 62-Sue-270216:47 CBCD Comments: DR. VERGARA ORDERED CMP, RENAL, [...] 4.2-5.4 WBC 6.7 K/mm3 (Normal) Range: 4.4-11.0 2-Gzd-370644:21 CBCD ANC 5.1 3/uL (Normal) Range: 2.0-7.7 [...] 4.2-5.4 WBC 7.8 K/mm3 (Normal) Range: 4.4-11.0 6-Jme-776355:21 LIPID Comments: ORDERED TSH LIPID T4DR.BONEALIA ORDERED RENAL TSH CBCDInterface Comments: Interface Comments: [...] VALVE PROLAPSEDiagnosis: 272.4 - HYPERLIPIDEMIAOV Order #: [id number] ID: [id number] Order #: [id number] Comments: Reason:OV Order #: [id number] VLDL 10 mg/dL (Normal) Range: 5-40 LDL [...] 200-240 mg/dL Borderline >240 mg/dL High Risk 7-Kmi-678930:21 RENAL Comments: ORDERED TSH LIPID T4DR.CLARY ORDERED RENAL [...] VALVE PROLAPSEDiagnosis: 272.4 - HYPERLIPIDEMIAOV Order #: [id number] ID: [id number] Order #: [id number] Comments: Reason:OV Order #: [id number] CO2 26.0 mmol/L (Normal) Range: 21.0-32.0 CL [...] 7-18 GLU 87 mg/dL (Normal) Range: 70-110 9-Gsz-620851:21 T4 15.1 ug/dL (Abnormal) Comments: ORDERED TSH [...] VALVE PROLAPSEDiagnosis: 272.4 - HYPERLIPIDEMIAOV Order #: [id number] ID: [id number] Order #: [id number] Comments: Reason:OV Order #: [id number] Range: 4.8-13.9 3-Dsy-849003:21 TSH 1.69 {uIU/mL} (Normal) Comments: ORDERED TSH LIPID T4DR.CLARY ORDERED RENAL [...] VALVE PROLAPSEDiagnosis: 272.4 - HYPERLIPIDEMIAOV Order #: [id number] ID: [id number] Order #: [id number] Comments: Reason:OV Order #: [id number] Range: 0.358-3.74 58-Shg-90715:57 BMP GAP 7 (Normal) Range: 5-15 CO2 [...] :57 TSH 2.61 {uIU/mL} (Normal) Range: 0.358-3.74 63-Sru-046745:38 URINE DAR CULTURE-NOREEN COL Comments: PATIENT NOT FASTINGPERFORMED BY: [facility]Xwvzhx[facility] [id number] Information: SRC: URINE COUNT (83307) Result 1 NG36 (Normal) Comments: No growth in 36 - 48 hours. Urine Culture,Comprehensive Final report (Normal) :42 Urinalysis, Office (91383) UA - BILIRUBIN Negative (Normal) UA - BLOOD Non Hemolyzed Trace (Normal) UA - GLUCOSE Negative (Normal) UA - KETONES Negative mg/dL (Normal) UA - LEUKOCYTE ESTERASE Trace (Abnormal) UA - NITRITE Negative (Normal) UA - PH 5.0 (Normal) UA - PROTEIN Negative mg/dL (Normal) UA - SPECIFIC GRAVITY 1.005 (Normal) URINE UROBILINGN NOREEN TIMED Normal mg/dL (Normal) 23-Qhc-234284:03 Urinalysis, Office (24033) UA - BILIRUBIN Negative (Normal) UA - BLOOD Hemolyzed Trace (Normal) UA - GLUCOSE Negative (Normal) UA - KETONES Negative mg/dL (Normal) UA - LEUKOCYTE ESTERASE Trace (Normal) UA - NITRITE Negative (Normal) UA - PH 5.0 (Normal) UA - PROTEIN Negative mg/dL (Normal) UA - SPECIFIC GRAVITY 1.010 (Normal) URINE UROBILINGN NOREEN TIMED Normal mg/dL (Normal) 1-Zsz-577550:00 BMP Comments: JANET ORDERED BMP MG T4 TSH LIVER LIPIDBONEZZI [...] 7-18 GLU 88 mg/dL (Normal) Range: 70-110 7-Yly-107474:00 LIPID Comments: JANET ORDERED BMP MG T4 TSH LIVER LIPIDBONEZZI [...] 200-240 mg/dL Borderline >240 mg/dL High Risk 8-Spt-245229:00 LIVER Comments: JANET ORDERED BMP MG T4 TSH LIVER LIPIDBONEZZI ORDERED BMP TSH T4F D BILI 0.11 mg/dL (Normal) Range: 0.00-0.30 T BILI 0.40 mg/dL (Normal) Range: 0.00-1.00 ALT 26 U/L (Normal) Range: 12-78 ALK P 70 U/L (Normal) Range: 50-136 AST 23 U/L (Normal) Range: 15-37 ALB 4.1 g/dL (Normal) Range: 3.4-5.0 T PROT 8.0 g/dL (Normal) Range: 6.4-8.2 3-Uue-591848:00 MG 2.0 mg/dL (Normal) Comments: JANET ORDERED BMP MG T4 TSH LIVER LIPIDBONEZZI ORDERED BMP TSH T4F Range: 1.5-2.2 3-Jvy-258201:00 T4 FREE DIRECT 1.69 ng/dL (Abnormal) Comments: JANET ORDERED BMP MG T4 TSH LIVER LIPIDBONEZZI ORDERED BMP TSH T4F Range: 0.76-1.46 1-Yyo-988030:00 T4 THYROXIN 14.3 ug/dL (Abnormal) Comments: JANET ORDERED BMP MG T4 TSH LIVER LIPIDBONEZZI ORDERED BMP TSH T4F Range: 4.8-13.9 4-Zta-931389:00 TSH 2.00 {uIU/mL} (Normal) Comments: JANET ORDERED BMP MG T4 TSH LIVER LIPIDBONEZZI ORDERED BMP TSH T4F Range: 0.358-3.74 4-Rjt-767615:46 Anaerobic and Aerobic Comments: PERFORMED BY: [facility] [facility] [id number] Information: SRC:EB RIGHT ELBOW Culture Result 1 NG36 (Normal) Comments: No growth in 36 - 48 hours. Aerobic Culture Final report (Normal) Result 1 NAAG72 (Normal) Comments: No aerobic or anaerobic growth in 72 hours. Anaerobic Culture Final report (Normal) 5-Wiy-951710:39 Urinalysis, Office (10224) UA - BILIRUBIN Negative (Normal) UA - BLOOD Negative (Normal) UA - GLUCOSE Negative (Normal) UA - KETONES Negative mg/dL (Normal) UA - LEUKOCYTE ESTERASE Negative (Normal) UA - NITRITE Negative (Normal) UA - PH 5.0 (Normal) UA - PROTEIN Negative mg/dL (Normal) UA - SPECIFIC GRAVITY 1.015 (Normal) URINE UROBILINGN NOREEN TIMED 2 mg/dL (Normal) 37-Bhg-14115:00 L/S SPINE,MIN 4 VIEWS Radiology Report See [...] (Abnormal) Range: 0-34 Comments: Performed at: - [facility] [id number] Director: Bella Taylor MD, Phone: [phone] T3 TOTAL 0.8 ng/mL (Normal) Comments: ORDERED [...] TPO T3F T4F 2:06 (Abnormal) Range: 0.358-3.74 01-Efm-911624:13 BMP GAP 12 (Normal) Range: 5-15 CO2 [...] 7-18 GLU 95 mg/dL (Normal) Range: 70-110 69-Jvl-196190:13 CBCD ABSOLUTE NEUT 5.1 3/uL (Normal) Range: [...] 4.2-5.4 WBC 7.1 K/mm3 (Normal) Range: 4.4-11.0 22-Gxe-277919:34 Vaginitis/Vaginosis, DNA Probe Comments: PERFORMED BY: [facility] [id number] Information: SRC:CE Gardnerella vaginalis Negative (Normal) Trichomonas [...] Visit for suture removal Concussion : Reviewed Outgoing Inspector Letter Indication: Concussion Fall, accidental : Reviewed Outgoing Inspector Letter Indication: Fall, accidental Fall, accidental : [...] Cerumen impaction : Follow up in with [facility] for ear irrigation Indication: Cerumen impaction Bronchitis [...] tract infection, unspecified type Planned Observations TSH (65929)Indication: Memory impairment On: 32-Iir-486609:11 Request AMMONIA (36809)Indication: Memory impairment On: 23-Gno-575281:11 Request Methymalonic Acid, Serum (86210)Indication: Memory impairment On: 49-Afi-302776:11 Request VITAMIN B-12 (CYANOCOBALAMIN) (61490)Indication: Memory impairment On: 72-Nuh-263786:11 Request FOLIC ACID SERUM (98690)Indication: Memory impairment On: 23-Emi-249123:11 Request METABOLIC PANEL, COMPREHENSIVE (03920)Indication: Coronary artery disease On: 39-Api-707867:02 Request Comments: fax copy to SHAWN Bonilla, BY NMR (01883)Indication: Coronary artery disease On: 95-Fqz-665987:02 Request CALCIFIDIOL (23250) VIT D 25Indication: Vitamin D deficiency On: 31-Dvb-920184:02 Request Metabolic Panel, Comprehensive (58551)Indication: Hypokalemia On: 12-Nov-2017 Request Comments: fax a copy to Dr. Caitlin Mya [phone] Huang [phone] MAGNESIUM (88497)Indication: Hypokalemia On: 0-Gok-749624:03 Request Metabolic Panel, Comprehensive (73991)Indication: Hypokalemia On: 4-Vgt-686369:02 Request Comments: fax a copy to Dr. Caitlin May [phone] Huang [phone] Metabolic Panel, Comprehensive (92485)Indication: Hypokalemia On: 05-Nov-2017 Request Comments: fax a copy to Dr. Caitlin [phone] Huang [phone] Metabolic Panel, Comprehensive (07463)Indication: Hypokalemia On: 29-Oct-2017 Request Comments: fax a copy to Dr. Caitlin [phone]-[address] Huang [phone] Metabolic Panel, Comprehensive (44066)Indication: Hypokalemia On: 22-Oct-2017 Request Comments: fax a copy to Dr. Caitlin [phone] Huang [phone] Metabolic Panel, Comprehensive (92167)Indication: Hypokalemia On: 15-Oct-2017 Request Comments: fax a copy to Dr. Tucker [phone] Huang [phone] Metabolic Panel, Comprehensive (86452)Indication: Hypokalemia On: 08-Oct-2017 Request Comments: fax a copy to Dr. Caitlin May [phone] Huang [phone] Metabolic Panel, Comprehensive (02670)Indication: Hypokalemia On: 01-Oct-2017 Request Comments: fax a copy to Dr. Caitlin May [phone] Huang [phone] Metabolic Panel, Comprehensive (83573)Indication: Hypokalemia On: 24-Sep-2017 Request Comments: fax a copy to Dr. Caitlin May [phone] Huang [phone] Renal function Panel (24805)Indication: Renal insufficiency (Renamed from Renal function impairment) On: 91-Mxr-852096:23 Request URIC ACID BLOOD (48795)Indication: Abnormal laboratory test On: 21-Fvg-140077:53 Request Metabolic Panel, Comprehensive (55501)Indication: Hypokalemia On: 17-Sep-2017 Request Comments: fax a copy to Dr. Caitlin May [phone] Huang [phone] Metabolic Panel, Comprehensive (57043)Indication: Hypokalemia On: 10-Sep-2017 Request Comments: fax a copy to Dr. Caitlin May [phone] Huang [phone] Metabolic Panel, Basic (66900)Indication: Cardiomyopathy On: 43-Hgf-008100:02 Request Comments: now stat and prn CREATININE BLOOD (51725)Indication: Left leg swelling On: 81-Xbl-213786:05 Request Metabolic Panel, Basic (69758)Indication: Renal insufficiency (Renamed from Renal function impairment) On: 06-Dva-856700:16 Request Comments: re check in 4 weeks T4, FREE (THYROXINE) (93129)Indication: Hypothyroidism On: 88-Jli-906638:49 Request CALCIFIDIOL (97523) VIT D 25Indication: Vitamin D deficiency On: 06-Znp-318245:47 Request TSH (THYROID STIMULATING HORMONE) (97087)Indication: Hypothyroidism On: 31-Cxz-831960:46 Request CREATININE BLOOD (05486)Indication: Abdominal pain, acute On: 54-Fmn-066382:34 Request Metabolic Panel, Basic (93375)Indication: Abdominal pain, acute On: 27-Krz-68818:31 Request T4, FREE (THYROXINE) (54480)Indication: Hypothyroidism On: :30 Request TSH (43304)Indication: Hypothyroidism On: :30 Request METABOLIC PANEL, COMPREHENSIVE (56459)Indication: DVT, bilateral lower limbs On: 20-Gcv-364519:48 Request PTT (Activated Partial Thromboplastin Time) (47191)Indication: DVT, bilateral lower limbs On: :29 Request PT (Prothrobim Time) (04378)Indication: DVT, bilateral lower limbs On: 10-Rid-639759:29 Request Factor 2 (Prothrombin) Gene Mutation (63433)Indication: DVT, bilateral lower limbs On: :29 Request Factor V Leiden (26781)Indication: DVT, bilateral lower limbs On: :28 Request Antiphospholipid atb (48704)Indication: DVT, bilateral lower limbs On: :28 Request CBC, Platelets & Auto Diff (75959)Indication: Abdominal pain, acute On: 15-Nxu-03967:38 Request Comments: coipy to Dr. jessie armendariz stat HEPATIC FUNCTION PANEL (33083)Indication: Abdominal pain, acute On: :37 Request Comments: to stat copy to Dr. natalie armendariz Metabolic Panel, Comprehensive (40375)Indication: Abdominal pain, acute On: :23 Request Comments: all STAT Sed Rate Erythrocyte (25754)Indication: Abdominal pain, acute On: 78-Xim-31725:19 Request CBC, Platelets & Auto Diff (52301)Indication: Abdominal pain, acute On: :19 Request Ferritin (37232)Indication: Abnormal RBC indices On: :08 Request CALCIFEDIOL (53529)Indication: Vitamin D deficiency On: :02 Request Folic Acid Serum (20662)Indication: Memory impairment On: :35 Request Methymalonic Acid, Serum (94116)Indication: Memory impairment On: :35 Request Vitamin B-12 (cyanocobalamin) (02975)Indication: Memory impairment On: :35 Request Metabolic Panel, Basic (65450)Indication: Cardiomyopathy in other diseases classified elsewhere On: :43 Request Urinalysis, Office (71812)Indication: Abdominal pain, acute On: 88-Qqv-595961:47 Request URINE DAR CULTURE-IDENTIFICATN (49724)Indication: Abdominal pain, acute On: 22-Adc-051464:20 Request TSH (09146)Indication: Hypothyroidism On: 65-Msi-611481:50 Request Comments: 8 weeks TSH (55693)Indication: Hypothyroidism On: :58 Request URINALYSIS, W/ MICRO (72505)Indication: Coronary artery disease On: :57 Request METABOLIC PANEL, COMPREHENSIVE (78309)Indication: Coronary artery disease On: :57 Request LIPID PANEL (27366)Indication: Coronary artery disease On: :57 Request CBC with auto diff (77387)Indication: Coronary artery disease On: :57 Request C-REACTIVE PROTEIN (23370)Indication: Abdominal pain, acute, generalized On: 48-Bsy-443396:31 Request Comments: stat CBC W/AUTO DIFF WBC (00212)Indication: Abdominal pain, acute, generalized On: :31 Request Comments: stat METABOLIC PANEL, COMPREHENSIVE (77129)Indication: Abdominal pain, acute, generalized On: :31 Request Comments: stat SED RATE ERYTHROCYTE (38874)Indication: Abdominal pain, acute, generalized On: 29-Feu-514629:26 Request CBC with auto diff (57723)Indication: Cardiomyopathy On: :59 Request Comments: copy to Dr. valerio URINALYSIS, W/ MICRO (86471)Indication: Cardiomyopathy On: :58 Request METABOLIC PANEL, COMPREHENSIVE (20776)Indication: Cardiomyopathy On: :58 Request LIPID PANEL (75661)Indication: Cardiomyopathy On: :58 Request TSH (76301)Indication: Hypothyroidism On: :58 Request CBC W/AUTO DIFF WBC (83868)Indication: Coronary artery disease On: :08 Request Comments: copy to cardiology TSH (69630)Indication: Hypothyroidism On: :08 Request URINALYSIS, W/ MICRO (86865)Indication: Coronary artery disease On: :08 Request METABOLIC PANEL, COMPREHENSIVE (40652)Indication: Coronary artery disease On: :08 Request LIPID PANEL (88693)Indication: Coronary artery disease On: :08 Request METABOLIC PANEL, COMPREHENSIVE (11172)Indication: Coronary artery disease On: :15 Request Comments: 05-24 CBC WITH MANUAL DIFF (16584)Indication: Coronary artery disease On: :15 Request Comments: 05-24 TSH (48558)Indication: Hypothyroidism On: 19-Rnd-527972:13 Request TSH (47650)Indication: Hypothyroidism On: 33-Rpr-760986:18 Request CBC WITH MANUAL DIFF (65217)Indication: Coronary artery disease On: 5-Kbc-975576:11 Request Comments: copy to [facility] URINALYSIS, W/ MICRO (86547)Indication: Coronary artery disease On: 7-Tuz-768851:11 Request METABOLIC PANEL, COMPREHENSIVE (91279)Indication: Coronary artery disease On: 3-Uvv-523414:11 Request LIPID PANEL (26110)Indication: Coronary artery disease On: 2-Sxy-336634:11 Request TSH (34686)Indication: Hypothyroidism On: 1-Ioi-312364:11 Request TSH (34363)Indication: Hypothyroidism On: 02-Liw-855701:02 Request METABOLIC PANEL, COMPREHENSIVE (51354)Indication: Cardiomyopathy On: 63-Cmu-996127:02 Request LIPID PANEL (68662)Indication: Cardiomyopathy On: 97-Yqu-847580:02 Request CBC WITH MANUAL DIFF (34759)Indication: Cardiomyopathy On: 66-Gan-685304:02 Request TSH (09511)Indication: Hypothyroidism On: :29 Request Renal function Panel (18661)Indication: Renal insufficiency (Renamed from Renal function impairment) On: 94-Qrw-724468:29 Request CBC (Auto) (40820)Indication: Cardiomyopathy On: :40 Request Metabolic Panel, Comprehensive (63473)Indication: Cardiomyopathy On: :40 Request T4, FREE (THYROXINE) (20269)Indication: Hypothyroidism On: 71-Gzb-331818:39 Request TSH (49567)Indication: Hypothyroidism On: 26-Onf-306619:39 Request TSH (51792)Indication: Hypothyroidism On: 8-Fha-417297:09 Request CBC (Auto) (41480)Indication: Cardiomyopathy On: 9-Crw-574774:08 Request Renal function Panel (02871)Indication: Cardiomyopathy On: :08 Request Metabolic Panel, Basic (98349)Indication: Cardiomyopathy On: :03 Request T4, FREE (THYROXINE) (11671)Indication: Hypothyroidism On: :03 Request TSH (60133)Indication: Hypothyroidism On: :03 Request Metabolic Panel, Basic (41065)Indication: Renal insufficiency (Renamed from Renal function impairment) On: 31-Qdl-055375:36 Request T4, FREE (THYROXINE) (25092)Indication: Hypothyroidism On: :35 Request TSH (33539)Indication: Hypothyroidism On: :35 Request DAR CULTURE-OTHER (76965)Indication: Bursitis, olecranon On: 1-Sxr-632280:18 Request Comments: olecranon bursa Metabolic Panel, Basic (18198)Indication: Hyperlipemia On: 22-Foy-179628:09 Request Metabolic Panel, Basic (81811)Indication: Gastroenteritis On: 63-Isg-108797:56 Request Comments: stat CBC (Auto) (04873)Indication: Gastroenteritis On: 72-Uah-013682:56 Request Metabolic Panel, Basic (08508)Indication: Cardiomyopathy On: :53 Request TSH (40761)Indication: PVT (paroxysmal ventricular tachycardia) On: 53-Waf-437521:53 Request URINALYSIS (28887)Indication: Cardiomyopathy On: :53 Request CBC (Auto) (96792)Indication: Cardiomyopathy On: 25-Bqt-949643:53 Request INFCT ANTGN TRICH VAGIN DIRECT PRB (92930)Indication: Vaginal discharge On: 58-Tcd-859604:31 Request GARDNERELLA VAG, NUCLEIC ACID DIR PROBE (46069)Indication: Vaginal discharge On: :31 Request ILEANA, NUCLEIC ACID DIRECT PROBE (31283)Indication: Vaginal discharge On: 98-Vwk-871202:31 Request Planned Encounters Medical; [facility] 2 Month FU - On: 06-Jul-2018 10:15 [facility] Clary TIRADO, Minerva Oseguera MD Planned Procedures Flu Vaccine (Quadrivalent) On: 01-Jun-2018 Intent 78309Fe: Visit, Nurse Comments: Lot #[id number]-L dltd, IMDose prefilled syringegiven by:SORAIDA Calloway reviewed and ABN signed Aerosol Treatment (54594)By: On: 08-Jan-2018 Intent Clary TIRADO, Minerva Oseguera MD SCREENING DIGITAL On: 23-Sep-2017 Intent TOMOSYNTHESIS OF BREAST (28800)By: Minerva Vergara MD, MD, Dana M Venous Doppler - LowerBy: On: 23-Sep-2017 Intent Minerva Vergara MD Comments: lower left extremity follow up on DVT from 07-27 due october Minerva TIRADO CTA ABDOMEN AND PELVIS On: 28-Jul-2017 Intent INCLUDING IMAGE POSTPROCESSING (93266)By: Clary TIRADO, Minerva Oseguera MD VENOUS DOPPLER LOWER On: 28-Jul-2017 Intent EXTREMITY (83892)By: Clary Comments: upper and lower left legcall results to [phone] Minerva TIRADO MD, Dana M Radiology - ChestBy: Clary On: 04-Apr-2017 Intent Minerva TIRADO MD, Dana M Comments: follow up in [address] - Abdomen & Pelvis (IV On: 03-Jan-2017 Intent Contrast Needed)By: Clary Comments: also assure oral contrast. copy to Dr. montez. , Minerva Oseguera MD PFT - CompleteBy: Clary TIRADO, On: 16-Dec-2016 Intent Minerva Oseguera MD XR ABDOMEN FLAT PLATE AND On: 04-Dec-2016 Intent ERECT (64732)By: Ida Quiñonez DO CT - Chest (IV Contrast On: 04-Dec-2016 Intent Needed)By: Ida Quiñonez DO Comments: pe protocol today CT - Abdomen (Without On: 25-Nov-2016 Intent Contrast)By: Minerva Vergara MD, MD, Dana M Spirometry (89985)By: On: 31-Oct-2016 Intent Minerva Vergara MD Comments: see scanned document of test done to see results reviewed today with patient Minerva TIRADO Radiology - ChestBy: Clary On: 31-Oct-2016 Intent Minerva TIRADO MD, Dana M Comments: call wet read Radiology - KUBBy: Clary On: 31-Oct-2016 Intent Minerva TIRADO MD, Dana M Comments: upright. call wet read to [phone] Bone Density StudyBy: Clary On: 29-Jul-2016 Intent Minerva TIRADO MD, Dana M MAMMOGRAM, BILATERAL On: 29-Jul-2016 Intent (92566)By: Minerva Vergara MD, MD, Dana M Flu Vaccine (Quadrivalent) On: 09-May-2016 Intent 84174Il: Slarb RECREATIONAL THERAPY TECHNICIAN, Meka ELECTROCARDIOGRAM, COMPLETE On: 09-Aug-2015 Intent (ECG) (47899)By: Memo Armendariz CNP Radiology - ChestBy: Clary On: 17-Jul-2015 Intent Minerva TIRADO MD, Dana M Aerosol Treatment (80685)By: On: 14-Jul-2015 Intent Minerva Vergara MD, MD, Dana M Aerosol Treatment (43370)By: On: 29-May-2015 Intent Slarb RECREATIONAL THERAPY TECHNICIAN, Meka ADMINISTRATION OF INFLUENZA On: 25-Apr-2015 Intent VIRUS VACCINE (G0008)By: Minerva Vergara MD, MD, Dana M Flu Vaccine (Quadrivalent) On: 25-Apr-2015 Intent 54015Ge: Minerva Vergara MD Comments: lot: [id number]: 01/07/16site/route: L del/IMamt: 0.5mLVIS signed when applicableИВАН Rodriguez MD, Dana M ACUTE ABDOMINAL SERIES On: 27-Mar-2015 Intent (31639)By: Ida Quiñonez DO Comments: stat call wet read INFUSION, NORMAL SALINE On: 04-Nov-2014 Intent SOLUTION , 1000 CC (Special Comments: only 500 ccIV Therapy okocyxynr40O, 1 inchSite: r acTolerated: well, x 2nd attempt. L ac infiltrated and rpessure applied then covered with gauze and bandageno redness or swelling, no s/s infiltrationMegan, RECREATIONAL THERAPY TECHNICIAN Coverage Instructions Apply. See MCM: 9) (J7030)By: Minerva Vergara MD, MD, Dana M Radiology - KUBBy: Clary On: 04-Nov-2014 Minerva Wright MD, MD, Dana M Comments: do today and call over wet read Radiology - Shoulder - On: 04-Nov-2014 Intent RightBy: Minerva Vergara MD, MD, Dana M Wax CurettesBy: Clary TIRADO, On: 15-Sep-2014 Intent Minerva Oseguera MD Ear Irrigation (20097)By: On: 15-Sep-2014 Intent Minerva Vergara MD, MD, Dana M Radiology - Shoulder - On: 15-Sep-2014 Intent RightBy: Minerva Vergara MD, MD, Dana M Radiology - ChestBy: Clary On: 15-Sep-2014 Intent Minerva TIRADO MD, Dana M Comments: by next week if not better with atb Aerosol Treatment (80283)By: On: 01-Sep-2014 Intent Memo Armendariz CNP DEXA SCAN AXIAL SKELETON On: 18-Feb-2014 Intent (57315)By: Minerva Vergara MD, MD, Dana M MAMMOGRAM, SCREENING, BOTH On: 18-Feb-2014 Intent BREAST (81048)By: Minerva Vergara MD, MD, Dana M INFUSION, NORMAL SALINE On: 29-Oct-2013 Intent SOLUTION , 250 CC (Special Coverage Instructions Apply. See MCM: 2049) (J7050)By: Tiera Carmen DO IV Needle placement On: 29-Oct-2013 Intent (50832)By: Kermit WEBER, Comments: 3rd attempt successful in R RJ Wagner Tiera IV Infusion (70968)By: Kermit On: 29-Oct-2013 Tiera Wright DO Eprescribed prescriptions On: 29-Oct-2013 Intent (G8553)By: Tiera Carmen DO Aerosol Treatment (50907)By: On: 29-Oct-2013 Intent Tiera Carmen DO Solu- Medrol Injection, 125mg On: 29-Oct-2013 Intent (J2930)By: Kermit WEBER, Comments: lot: [id number]: 12/23site/route: RGM/IMamt:2mLVIS signed when applicableChelsИВАН gutiérrez Tiera Eprescribed prescriptions On: 26-Oct-2013 Intent (G8553)By: Clary TIRADO, Minerva Oseguera MD Wax CurettesBy: Ciglenysa WARPING MACHINE OPERATOR, On: 22-Oct-2013 Intent Saba Ear Irrigation (84225)By: On: 22-Oct-2013 Intent Ciesa WARPING MACHINE OPERATOR, Saba Eprescribed prescriptions On: 25-Jun-2013 Intent (G8553)By: Jeanne Gil LPN Wax CurettesBy: Clary TIRADO, On: 18-Jun-2013 Intent Minerva Vergara MD, Minerva Painting Ear Irrigation (20704)By: On: 18-Jun-2013 Intent Clary TIRADO, Minerva Vergara MD, Minerva Painting Eprescribed prescriptions On: 18-Jun-2013 Intent (G8553)By: Jeanne Gil LPN MAMMOGRAM, SCREENING, BOTH On: 16-Mar-2013 Intent BREASTS (29688)By: Clary Comments: 06-23 maddi TIRADO, Minerva Vergara MD, Minerva Painting Wax CurettesBy: Clary TIRADO, On: 16-Mar-2013 Intent Minerva Vergara MD, [facility] Ear Irrigation ([id number])By: On: 16-Mar-2013 Intent Minerva Vergara MD, MD, Dana M Inhaler Demonstration On: 15-Feb-2013 Intent ([id number])By: Memo Armendariz CNP Aerosol Treatment ([id number])By: On: 15-Feb-2013 Intent Memo Armendariz CNP Eprescribed prescriptions On: 08-Dec-2012 Intent ([id number])By: Jeanne Gil LPN Aerosol Treatment ([id number])By: On: 03-Dec-2012 Intent Minerva Vergara MD, MD, Dana M Pulse Oximetry ([id number])By: On: 03-Dec-2012 Intent ARON Lawrence Wax CurettesBy: Kala HAZEL, On: 25-Nov-2012 Intent Memo Weeks Ear Irrigation ([id number])By: On: 25-Nov-2012 Intent Memo Armendariz CNP SPECIMEN [id number], OFFC On: 25-Nov-2012 Intent > LAB ([id number])By: Nova Posadas LPN Breast Screening - On: 28-Apr-2012 Intent BilateralBy: Minerva Vergara MD, MD, Dana M Bone Density StudyBy: Clary On: 28-Apr-2012 Intent Minerva TIRADO MD, Dana M Aerosol Treatment ([id number])By: On: 28-Apr-2012 Intent Minerva Vergara MD, MD, Dana M TDAP VACCINE >7 IM ([id number])By: On: 06-Feb-2012 Intent Sneha Vasquez doppler/ultrasound - right On: 20-Jan-2012 Intent calfBy: Minerva Vergara MD Comments: attention subcutaneous mass, history of clots Minerva Vergara MD Ear Irrigation ([id number])By: On: 11-Oct-2011 Intent Minerva Vergara MD Comments: med amt of wax removed from the left ear. small amt of wax removed from the right ear. pt tolerated well. Minerva TIRADO Wax CurettesBy: Clary TIRADO, On: 11-Oct-2011 Intent Minerva Osegurea MD Aerosol Treatment ([id number])By: On: 08-Oct-2011 Intent Memo Armendariz CNP Aerosol Treatment ([id number])By: On: 04-Oct-2011 Intent Memo Armendariz CNP EKG ([id number])By: Clary TIRADO, On: 15-Aug-2011 Intent Minerva Oseguera MD Comments: see scanned document. Nerve ConductionBy: Clary On: 29-Jul-2011 Intent Minerva TIRADO MD, Dana M Comments: lower leg EMGBy: Minerva Vergara MD On: 29-Jul-2011 Intent Minerva Vergara MD Solu -Medrol Injection, 125 On: 16-Apr-2011 Intent mg ([id number])By: Kala HAZEL, Comments: Lot:[id number]:sep 11 2013Amt:125mgRoute:IMSite:right hip Given By: RJ Soriano Memo Weeks THER/PROPH/DIAG IV INF, INIT On: 15-Feb-2011 Intent ([id number])By: Minerva Vergara MD, MD, Dana M Rocephin [...] Minerva TIRADO MD, Dana M Pulse Oximetry ([id number])By: On: 03-Sep-2010 Intent ARON [facility] - Lumbar SpineBy: On: 29-Aug-2010 Intent Ida Quiñonez DO Comments: call wet read Venous Doppler - LeftBy: On: 23-Jul-2010 Intent Minerva Vergara MD Comments: leg. send copy Dr. [place] orthosMinerva lovett MD HYDRATION IV INFUSION, INIT On: 28-Jun-2010 Intent ([id number])By: Minerva Vergara MD Comments: only gave 500 cc of LR with CMP historyLot #:[id number] date:mount given:500ml Route: IVSite given:left wrist Given by: TorqBakssell Butterfly needle placed to left wrist with minimal difficulty 500ml LR infused Minerva Vergara MD Planned Medications INFUSION, NORMAL SALINE SOLUTION , 1000 CC Ordered: 04-Nov-2014 Pending Minerva Vergara MD, MD, Dana M INFUSION, NORMAL SALINE SOLUTION , 250 CC Ordered: 29-Oct-2013 Pending Kermit WEBER Tiera INJECTION, CEFTRIAXONE SODIUM, PER 250 MG Ordered: 15-Feb-2011 Pending Minerva Vergara MD, MD, Dana M INJECTION, METHYLPREDNISOLONE SODIUM SUCCINATE, UP TO 125 MG Ordered: 16-Apr-2011 Pending Kala HAZEL, Saba INJECTION, METHYLPREDNISOLONE SODIUM SUCCINATE, UP TO 125 MG Ordered: 29-Oct-2013 Pending Brisa Carmen DOeen INJECTION, TRIAMCINOLONE ACETONIDE, NOT OTHERWISE SPECIFIED, 10 [...] The patient does have durable power of therapeutic recreation leader and living will. The patient has noticed nothing from the geriatic depression scale. Other providers contributing to the patient's care are bore miner operator and other: (Dr. [facility]). Encounter Diagnosis: [...] cancer screening up to date- drove to [place] few weeks ago- no family hx of [...] up ER: Went to ER November 12 4-7 for abdominal painWas taken off of lasix [...] from that visit - done with the nunuisone and has 2 days lef End: 19-Mar-2013 [...] The patient does have durable power of therapeutic recreation leader and living will. The patient has noticed having problems with memory than others and lack of energy. Other providers contributing to the patient's care are bore miner operator (Reina) and other: (eye doctor - has [...] Nutrition: balanced diet and supplemental vitamins. The ne dical issues the patient is following up [...] [facility] End: 19-Apr-2011 10:08 Implant Surgeon [place], [place] ) . There have been no [...] 07-May-2010 15:33 [facility] Payers Hum//Medicare [place]; guru guarantor
--- OUTSIDE RECORDS SUMMARY | 2018-09-02 18:02 | XMS RPT_ITS | Continuity of Care Document ---
:1940 Author Organization [facility] Address [facility] [address] [place] [address] Phone Care Team Providers Name Role Phone [...] left leg wtih DVT or overall fluid -05 20% Status: Active Constipation (K59.00, 564.00) Comments: [...] on neurotin and help some. Dr at [facility] not want to do surgery. using accupuncture [...] Puff(s) daily for 30 days Quantity: 1 {[place]} Refills: 5 Ordered:22-Jan-2018 Khang DO, Ida A [...] for 10 days Refills: 0 Ordered:26-Oct-2013 Long FLASH WELDING MACHINE OPERATORJeanne Start : 22-Oct-2013 End : 01-Nov-2013 Inactive [...] prn (5 MG) End : 14-Jun-2015 Discontinued Comments:[facility] DOXYCYCLINE HYCLATE, 100MG (Oral Tablet) 1 [...] Vaginal Cream 1 (one) Cream twice weekly CO 1gm and small amount over urethra for [...] Hospital discharge follow-up (Z09, V67.59) Comments: pneumonia [facility] 03-31-17 to 04-02-17 Status: Resolved as [...] Status: Inactive as of 04-Apr-2017 Vaccine for przjhajsis-jylmfsr-bsrbtdqrd with poliomyelitis (Z23, V06.3) Status: Inactive as [...] Dates Details [facility]x [facility] By[facility], Single Completed Comments: with Mitral valve replacement October 2009 fibrillator replaced -- April 2013 Completed -- [place] Hysterectomy, Total Completed partial bilateral knee replacement - Completed dr Magana STATUS, HEART VALVE REPLACEMENT NEC Completed (V43.3) Date Value Details 01-May-2018 Pacemaker Check Result: Comments: See Note; NOTES: [facility] [address] [place] [address] Pacemaker Check Date of Service: 05/01/18 1428 MR#: [id number] Acct: [id number] Name: IRIS ARRIAGA Rep #: [id number] : 1940 From: Kim Pickard Age/Sex: 78/F [place] [facility] Status: Signed Billing Codes ICD Device Billing: ICD Dev Prog Eval, Single 05/01/18 1430 <Elect ronically signed by Kim Pickard > Date Kim Pickard 05/01/18 1634<Electronically signed by Gurdeep Huang MD> Cosigner Sign ature: Date (if applicable) Gurdeep Huang MD CC: 18-Mar-2018 Pulmonary Visit Report Result: Comments: See Note; NOTES: [facility] [place] [address] [place] [address] OFFICE VISIT Date of Service: 03/18/18 MR#: [id number] Acct: [id number] Name: IRIS STRINGER CH Rep #: [id number] : 1940 Provider: Glenna Anderson Age/Sex: 78/F Location[facility] Status: Signed Assessment AND Plan Problems 1. 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 [place] [address] Pacemaker Check Date of Service: 01/28/18 1424 MR#: [id number] Acct: [id number] Name: ETHEL, IRIS S Rep #: [id number] : 1940 From: Kim Pickard Age/Sex: 78/F Location: [facility] Status: Signed Comments Summary Comments: Single Chamber ICD Report: See attached scanned system software programmer Repor t. Interrogation shows no VT/VF [...] in office Interview Reason: routine follow up Guest Relations Coordinator: [employer] Name: Protecta VR Model: [id number] Serial #: [id number] Implant Date: 04/29/13 Year(s): 4 Implant Physician: Dr. Jose Murphy Patient Characteristics Atrial Indication: Paroxysmal atrial fibrillation Ventricular Indication: Nonsustained VT Patient Substrate: Nonischemic cardiomyopathy By: Echo Implant DFT: 18J Underlying rhythm: Sinus rhythm Pacemaker Dependent: No Device Characteristics Device: Single Chamber Type: Implantable defibrillator Remote Follow-Up: No Device Physical Exam Yes Incision well healed Leads Lead #1 Guest Relations Coordinator Lead 1: Medtronic Model Lead 1: 5076 Serial# Lead 1: [id number] Date Implanted Lead 1: 09/03/04 Position Lead 1: RV Lead #2 Guest Relations Coordinator Lead 2: Medtronic Model Lead 2: 6943 Serial# Lead 2: [id number] Date Implanted Lead 2: 11/18/00 Position Lead [...] R00.2 6. Atherosclerot ic heart disease of [place]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 with angina pectoris I25.119 7. Syncope R55 02/01/18 1335 <Electronically signed by Kim Pickard > Date Kim Pickard 02/02/18 0800<Electronically signed by Gurdeep Huang MD> Cosigner Signature: Date (if applicable) Gurdeep Huang MD CC: 27-Oct-2017 Venous Duplex Lower Extremity Result: Comments: See Note; NOTES: [facility] Cardiovascular Services [address] [place] [address] Venous Duplex US, Unilateral 10/27/17 0952 MR#: [id number] Acct: [id number] Name: IRIS HOU Rep #: [id number] : 1940 77 From: Alejandro Armendariz MD [...] Date Dictated: 10/27/17 0952 Date Transcribed: 10/27/171613 Web Retailer: Signed 15-Oct-2017 Pulmonary Visit Report Result: Comments: See Note; NOTES: [facility] [address] [place] [address] OFFICE VISIT Date of Service: 10/15/17 MR#: [id number] Acct: [id number] Name: IRIS STRNIGER CH Rep #: [id number] : 1940 Provider: Glenna Anderson Age/Sex: 77/F Location[place] [facility] Status: Signed Assessment AND Plan 1. URMILA [...] Plan Detail Follow Up 3 Months (MIRNA) [facility] Hospital FU: Chief Complaint: Shortness [...] body aches. She has not utilized any cxev-mwg-jkdhkff medications for her shortness of breath. 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 [id number] Electronically Signed: Ed Fink MD at 11:10 EST Tel [phone], Service support , CC: Minerva Vergara MD Web Retailer: Signed 06-Oct-2017 Office Visit Report Result: Comments: See Note; NOTES: [facility] Services [address] [place] [address] OFFICE VISIT Date of Service: 09/25/17 MR#: [id number] Acct: [id number] Patient: IRIS ARRIAGA Rep #: [id number] : 1940 Provider: Kim Pickard Age/Sex: 77/F Location[place] [facility] Status: Signed Comments Summary Comments: Single Chamber ICD Evaluation: Interrogation shows no VT/VF episodes since 06/17/17. Left pectoral pocket/incision w/o s/s of infection or erosion. Pt offers no cardiac complaints. Presenting rhythm shows NSR @ 92 bpm. FRENCH FOLDING MACHINE OPERATOR=<0.1%. Lead impedance, sensing and pace/sense thres hold remain stable. No parameter changes made. Counters cleared. Next f/u appt scheduled for in 3 mos. Device Device Date Interviewed: 09/25/17 Follow-up Location: in office Interview Reason: routine follow up Guest Relations Coordinator: [employer] Name: Protecta VR Model: [id number] Serial #: [id number] Implant Date: 04/29/13 Year(s): 4 Implant Physician: [...] Incision well healed Leads Le ad #1 Guest Relations Coordinator Lead 1: [employer] Model Lead 1: 5076 Serial# Lead 1: [id number] Date Implanted Lead 1: 09/03/04 Position Lead 1: RV Additional Details: pace/sense lead Lead #2 Guest Relations Coordinator Lead 2: Nm marcus Model Lead 2: 6943 Serial# Lead 2: [id number] Date Implanted Lead 2: 11/18/00 Position Lead [...] Visit Report Result: Comments: See Note; NOTES: [facility] [address] [place] [address] OFFICE VISIT Date of Service: 09/11/17 MR#: [id number] Acct: [id number] Name: IRIS ARRIAGA Rep #: [id number] : 1940 Provider: Gurdeep Huang MD Age/Sex: 77/F Location[place] [facility] Status: Signed HPI 6 M FU: [...] that she was evaluated for such at [facility]. 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 She is due to see her heart coordinator at [facility] in October of this year. [...] artery disease) I25.10 Coronary Disease-Associated Artery/Lesion type: [place] artery Long-term use of high-risk medication Z79.899 [...] artery disease) I25.10 Coronary Disease-Associated Artery/Lesion type: [place] artery Long-term use of high-risk medication Z79.899 09/11/17 1716 <Electronically signed by Gurdeep Huang MD> Date Gurdeep Huang MD Cosigner Signature: Date ___ (if applicable) CC: Minerva Vergara MD 28-Jul-2017 Venous Duplex Lower Extremity Result: Comments: See Note; NOTES: [facility] Cardiovascular Services [address] [place] [address] Venous Duplex US, Unilateral 07/28/17 0942 MR#: [id number] Acct: [id number] Name: IRIS HOU Rep #: [id number] : 1940 77 From: Alejandro Armendariz MD [...] MD Date Dictated: 07/28/17941 Date Transcribed: 07/28/171751 Web Retailer: Signed 28-Jul-2017 CT ANGIO ABD AND PEL W/O AND W/DYE Result: Comments: See Note; NOTES: [facility] Imaging Services [address] [place] [address] CT ANGIO ABD AND PEL W/O AND W/DYE MR#: [id number] Acct: [id number] Name: IRIS ARRIAGA Rep #: [id number] : 1940 F 77 From: Apolinar Ansari DO PCP: Minerva Vergara MD Status: REG CLI Study: CT ANGIO ABD AND PEL W/O AND W/DYE Date of Exam: 07/28/17 Exam# [id number] Ordering Dr: Minerva Child i, MD STUDY: [...] Service support , CC: Minerva Vergara MD Web Retailer: Signed 19-Feb-2017 6 Minute Walk Test Result: Comments: See Note; NOTES: [facility] Pulmonary Services/Neurology [address] [place] [address] MR#: [id number] Acct: [id number] Name: IRIS ARRIAGA Rep #: [id number] : 1940 77 From: Jeremie Schultz MD Referring Dr: Bruon Barcenas D.O. Date: Ordering Dr: Sex: F C Location: PSN PSN 6 Minute Walk Test - 6 Minute Walk Test 6 Minute Walk Test: 6 Minute Walk Test PS N:6-Minute Walk Test Start: 02/19/17 12:50 Freq: Status: Active Document 02/19/17 12:50 FR (Rec: 02/19/17 12:53 FR [id number]) 6 Minute Walk Test Date Performed 02/19/17 [...] Date Dictated: 02/19/17 1553 Date Transcribed: 02/19/171552 Web Retailer: Jeremie Schultz Signed 03-Jan-2017 Abdomen/Pelvis WITH Contrast Result: Comments: See Note; NOTES: [facility] Imaging Services [address] [place] [address] Verdana 4d Abdomen/Pelvis WITH Contrast MR#: [id number] Acct: [id number] Name: JARON ARRIAGA Rep #: [id number] : 1940 F 76 From: Ed Fink MD PCP: Minerva Vergara MD Status: REG CLI Study: Abdomen/Pelvis WITH Contrast Date of Exam: 01/03/17 Exam# [id number] Ordering Dr: Minerva Bartlett MD STUDY: CT [...] Ed Fink MD at 13:03 EDT Tel [phone], Service support , CC: Minerva Vergara MD Web Retailer: Signed 01-Jan-2017 Pulmonary Function Report Comp Result: Comments: See Note; NOTES: [facility] Pulmonary Services/Neurology [address] [place] [address] Pulmonary Function Test (Comp) MR#: [id number] Acct: [id number] Name: CATHLEEN ARRIAGA Rep #: [id number] : 1940 76 From: Bruno Barcenas DO Referring Dr: Minerva Vergara MD Status: REG CLI Ordering Dr: Minerva Vergara MD Date: 12/31/16 Location: [facility] Sex: F C DATE OF [...] C: Referring Provider . T: NTS JOB: [id number] 01/01/17 1057 <Electronically signed by Christian Barcenas DO> Date Bruno Barcenas DO CC: Minerva Vergara MD; Bruno Barcenas D.O. Date Dictated: 12/31/16 160 Date Transcribed: 12/31/161600 Web Retailer: Signed 26-Dec-2016 Echocardiogram Complete Result: Comments: See Note; NOTES: [facility] Cardiovascular Services [address] [place] [address] Echo Complete 12/25/16 1357 MR#: [id number] Acct: [id number] Name: IRIS ARRIAGA Rep #: [id number] : 1940 76 From: Gurdeep Huang MD [...] Dictated: 12/25/16 1357 Date Transcribed: 12/26/16 09 Web Retailer: Signed 04-Dec-2016 Abd Inc Decub and/or Erect Result: Comments: See Note; NOTES: [facility] Imaging Services [address] [place] [address] Verdana 4d Abd Inc Decub and/or Erect MR#: [id number] Acct: [id number] Name: ARI ARRIAGA Jose Manuel Tucker Rep #: [id number] : 1940 F 76 From: Mele Brown MD PCP: Minerva Vergara MD Status: REG CLI Study: Abd Inc Decub and/or Erect Date of Exam: 12/04/16 Exam# [id number] Ordering Dr: Anita Quiñonez DO STUDY: X-RAY [...] CC: Minerva Vergara MD; Ida Quiñonez DO Web Retailer: Signed 04-Dec-2016 CTA Chest W/WO Contrast Result: Comments: See Note; NOTES: [facility] Imaging Services [address] [place] [address] 4d CTA Chest W/WO Contrast MR#: [id number] Acct: [id number] Name: IRIS ARRIAGA Rep #: [id number] : 1940 F 76 From: Ed Fink MD PCP: Minerva Vergara MD Status: REG CLI Study: CTA Chest W/WO Contrast Date of Exam: 12/04/16 Exam# [id number] Ordering Dr: Ida Quiñonez DO STUDY: CTA [...] Megan Fink MD at 15:43 EDT Tel [phone], Service support , CC: Minerva Vergara MD; Ida Quiñonez DO Web Retailer: Signed 03-Dec-2016 Venous Duplex Lower Extremity Result: Comments: See Note; NOTES: [facility] Cardiovascular Services [address] [place] [address] Venous Duplex US - David Extrem 12/03/16 1553 MR#: [id number] Acct: [id number] Name: IRIS ARRIAGA Rep #: [id number] : 1940 76 From: Alejandro Armendariz MD [...] 12/03/16 1553 Da te Transcribed: 12/03/16 1850 Web Retailer: Signed 02-Dec-2016 Abdomen without IV Contrast Result: Comments: See Note; NOTES: [facility] Imaging Services [address] [place] [address] Verdana 4d Abdomen without IV Contrast MR#: [id number] Acct: [id number] Name: CAMILA ARRIAGA Rep #: [id number] : 1940 F 76 From: Moses Chase MD PCP: Minerva Vergara MD Status: REG CLI Study: Abdomen without IV Contrast Date of Exam: 12/02/16 Exam# [id number] Ordering Dr: Minerva Broussard MD STUDY: CT [...] diverticulitis. The abdominal wall is intact. A Dieterich umbrella filter is in place but 4 [...] left.. CT/Abdomen without IV Contrast IMPRESSION: A Dieterich umbrella filter in place with at least [...] Service support , CC: Minerva Vergara MD Web Retailer: Signed 31-Oct-2016 Abd Inc Decub and/or Erect Result: Comments: See Note; NOTES: [facility] Imaging Services [address] [place] [address] Verdana 4d Abd Inc Decub and/or Erect MR#: [id number] Acct: [id number] Name: ARI ARRIAGA Rep #: [id number] : 1940 F 76 From: Ed Fink MD PCP: Minerva Vergara MD Status: REG CLI Study: Abd Inc Decub and/or Erect Date of Exam: 10/31/16 Exam# [id number] Ordering Dr: Minerva Vergara MD STUDY: X-RAY [...] Ed Fink MD at 10:26 EDT Tel [phone], Service support [phone], CC: Minerva Vergara MD Web Retailer: Signed 31-Oct-2016 Chest PA and Lateral Result: Comments: See Note; NOTES: [facility] Imaging Services [address] [place] [address] Verdana 4d Chest PA and Lateral MR#: [id number] Acct: [id number] Name: IRIS ARRIAGA Re p #: [id number] : 1940 F 76 From: Ed Fink MD PCP: Minerva Vergara MD Status: REG CLI Study: Chest PA and Lateral Date of Exam: 10/31/16 Exam# [id number] Ordering Dr: Minerva Vergara MD S DY: [...] Ed Fink MD at 10:27 EDT Tel [phone], Service support [phone], CC: Minerva Vergara MD Web Retailer: Signed 26-Sep-2016 Dexa Bone Density Study (HP) Result: Comments: See Note; NOTES: [facility] Imaging Services [address] [place] [address] Verdana 4d Dexa Bone Density Study (HP) MR#: [id number] Acct: [id number] Name: JARON ARRIAGA Rep #: [id number] : 1940 F 76 From: Ed Fink MD PCP: Minerva Vergara MD Status: REG CL Study: Dexa Bone Density Study (HP) Date of Exam: 09/26/16 Exam# [id number] Ordering Dr: Minerva Bartlett MD STUDY: DUAL [...] Fink MD at 15:0 0 EST Tel [phone], Service support [phone], CC: Minerva Vergara MD Web Retailer: Signed 26-Sep-2016 SCREENING MAMM (CAD), BILAT Result: Comments: See Note; NOTES: [facility] Imaging Services [address] [place] [address] Verdana 4d SCREENING MAMM (CAD), BILAT MR#: [id number] Acct: [id number] Name: CAMILA ARRIAGA Rep #: [id number] : 1940 F 76 From: Ed Fink MD PCP: Minerva Vergara MD Status: REG CLI Study: SCREENING MAMM (CAD), BILAT Date of Exam: 09/26/16 Exam# [id number] Ordering Dr: Minerva Child i, MD MAMMOGRAPHY [...] delay biopsy of a clinically suspicious abnormality. [id number] Electronically Signed: Ed Fink MD at 7:48 EST Tel [phone], Service support [phone], CC: Minerva Vergara MD Web Retailer: Signed 09-Feb-2016 Operative Report Result: Comments: See Note; NOTES: [facility] Medical Records Department [address] [place] [address] Operative Report MR#: [id number] Acct: [id number] Name: CAMILA ARRIAGA Rep #: [id number] : 1940 76 From: Clifford Gifford MD [...] without difficulty to the cecum, identified by kasaan's foot appearance, ileocecal valve and appendiceal orifice. [...] patient. Kamari Gifford MD T: NTS JOB: [id number] 02/09/16 0706 <Electronically signed by Clifford Gifford MD> Date Clifford Gifford MD Cosign er Signature (If Indicated): Date CC: Clifford Gifford; Minerva Vergara MD Date Dictated: 01/30/16 0833 Date Transcribed: 01/30/16832 Web Retailer: Signed 15-Nov-2015 Gallbladder Result: Comments: See Note; NOTES: [facility] Imaging Services [address] [place] [address] Verdana 4d Gallbladder MR#: [id number] Acct: [id number] Name: IRIS ARRIAGA Rep #: [id number] : 1940 F 75 From: Sofia Storey MD PCP: Minerva Vergara MD Status: REG ER Study: Gallbladder Date of Exam: 11/15/15 Exam# [id number] Ordering Dr: Jalil Nogueira MD STUDY: ULTRASOUND [...] MD at 21:57 EDT , Service support [phone], F ax [phone] CC: Minerva Vergara MD; Jalil Nogueira MD Web Retailer: Signed 15-Nov-2015 Abdomen/Pelvis WITH Contrast Result: Comments: See Note; NOTES: [facility] Imaging Services [address] [place] [address] Verdana 4d Abdomen/Pelvis WITH Contrast MR#: [id number] Acct: [id number] Name : IRIS ARRIAGA Rep #: [id number] : 1940 F 75 From: Sofia Storey MD PCP: Bonezzi MD,Minerva Status: REG ER Study: Abdomen/Pelvis WITH Contrast Date of Exam: 11/15/15 Exam# [id number] Order ing Dr: Jalil Nogueira MD STUDY: [...] MD at 20:10 EDT , Service support [phone], CC: Minerva Vergara MD; Jalil Nogueira MD Web Retailer: Signed 31-Oct-2015 Cerv Spine 4 or 5 Views Result: Comments: See Note; NOTES: [facility] Imaging Services [address] [place] [address] Verdana 4d Cerv Spine 4 or 5 Views MR#: [id number] Acct: [id number] Name: IRIS WRAY Rep #: [id number] : 1940 F 75 From: Alexey Stephens MD PCP: Minerva Vergara MD Status: REG CLI Study: Cerv Spine 4 or 5 Views Date of Exam: 10/31/15 Exam# [id number] Ordering Dr: Tiffanie Corcoran DO STUDY: X-RAY [...] a t 13:54 EDT , Service support [phone], RAD/Cerv Spine 4 or 5 Views IMPRESSION: Severe cervical spondylosis. Electronically Signed: Earl Stephens MD, FACR at 13:54 EDT , Service support [phone], CC: Tiffanie Saha DO; Minerva Vergara MD Web Retailer: Signed 28-Sep-2015 PT D/C Summary (1) Result: Comments: See Note; NOTES: [facility] Physical Therapy [facility] [address] [place], [place] [address] Fax REHABILITATION SE RVICES DISCHARGE SUMMARY MR#: [id number] Acct: [id number] Name: IRIS ARRIAGA Rep #: [id number] : 1940 75 From: Kelvin Newman DPT, [...] please feel free to call me at [phone]. Thank you for the referral of this patient. Sincerely, Kelvin Newman <Electronically signed by Kelvin Newman DPT, OCS, CSCS> 09/28/15 0944 CC: Minerva eVrgara MD; Nerissa Bhat EBG Signed 24-Aug-2015 PT Communication Result: Comments: See Note; NOTES: [facility] Physical Therapy [address] [place] [address] Fax REHABILITATION SE RVICES PROGRESS NOTE MR#: [id number] Acct: [id number] Name: IRIS ARRIAGA Rep #: [id number] : 1940 75 From: Kelvin Newman Referring Dr.: Nerissa Bhat Status: REG RCR Insurance: [employer]IC[employer] PPO ANTHEM PT Communication Note 08/24/15 Dear Mert Moore and Dr. Vergara, Thank you for the referral of [facility] and [facility]. I [...] - PT Result: Comments: See Note; NOTES: [facility] Physical Therapy [facility] [address] [place] [address]. [address] [place] [address] Fax [facility] MR#: [id number] Acct: [id number] Name: IRIS ARRIAGA Rep #: [id number] : 1940 75 From: Kelvin Newman Referring [...] Duration: 4-6 Weeks - Subjective Fell at [facility] in May and hurt head. Then p assed out shortly thereafter went to ER and was dehydrated. Went to Dr. vergara a couple weeks ago and was sent to ER for low blood pressure. Spent a few days in hospital and found that the pig valve is thickening. Will go to [place] later in month as Dr. Huang sent [...] to be FAXED BACK to us at [phone] for Medicare purp oses. Please let me know if there are questions or concerns regarding this plan of care. Physician Signature: Date: <Electron ically signed by Kelvin Newman > 08/17/15 0944 CC: Minerva Vergara MD; Nerissa Bhat EBG Signed For Medicare only, by signing this I certify the plan of care. Physicians Signature Date 09-Aug-2015 Brain/Head without Contrast Result: Comments: See Note; NOTES: [facility] Imaging Services [address] [place] [address] Verdana 4d Brain/Head without Contrast MR#: [id number] Acct: [id number] Name: IRIS ARRIAGA Rep #: [id number] : 1940 F 75 From: Robert Osborn MD PCP: Minerva Vergara MD Status: REG Study: Brain/Head without Contrast Date of Exam: 08/09/15 Exam# [id number] Ordering D r: Sneha Baptiste MD STUDY: [...] at 13:15 EST Tel , Service support [phone], CC: Minerva sierra MD; Sneha Baptiste MD Web Retailer: Signed 09-Aug-2015 Chest 1 View (Portable) Result: Comments: See Note; NOTES: [facility] Imaging Services [address] [place] [address] Verdana 4d Chest 1 View (Portable) MR#: [id number] Acct: [id number] Name: IRIS WRAY Rep #: [id number] : 1940 F 75 From: Robert Osborn MD PCP: Minerva Vergara MD Status: REG ER Study: Chest 1 View (Portable) Date of Exam: 08/09/15 Exam# [id number] Ordering Dr: Sneha Baptiste MD STUDY: X-RAY [...] at 12:43 EST Tel , Service support [phone], RAD/Chest 1 View (Portable) IMPRESSION: No acute pulmonary process, no interval change Electronically Signed: Josesito Osborn MD at 12:43 EST Tel , Service support [phone], CC: Minerva Vergara MD; Sneha Baptiste MD Web Retailer: Signed 20-Jul-2015 Chest PA and Lateral Result: Comments: See Note; NOTES: [facility] Imaging Services [address] [place] [address] Verdana 4d Chest PA and Lateral MR#: [id number] Acct: [id number] Name: IRIS ARRIAGA Rep #: [id number] : 1940 F 75 From: Ed Fink MD PCP: Minerva Vergara MD Status: REG CLI Study: Chest PA and Lateral Date of Exam: 07/20/15 Exam# [id number] Ordering Dr: Minerva Amezquita MD STUDY: X-RAY [...] Ed Fink MD at 13:14 EST Tel [phone], Service support [phone], RAD/Chest PA and Lateral IMPRESSION: No acute abnormality is seen. Electronically Signed: Ed Fink MD at 13:14 EST Tel [phone] , Service support [phone], CC: Minerva Vergara MD Web Retailer: Signed 06-Jun-2015 Brain/Head without Contrast Result: Comments: See Note; NOTES: [facility] Imaging Services [address] [place] [address] Verdana 4d Brain/Head without Contrast MR#: [id number] Acct: [id number] Name: IRIS ARRIAGA Rep #: [id number] : 1940 F 75 From: Ed Fink MD PCP: Minerva Vergara MD Status: REG ER Study: Brain/Head without Contrast Date of Exam: 06/06/15 Exam# [id number] [place] sarojing Dr: Kermit Verduzco MD STUDY: CT [...] Fink MD a t 16:13 EDT Tel [phone], Service support [phone], CC: Minerva Vergara MD; Kermit Verduzco MD Web Retailer: Signed 06-Jun-2015 Chest 1 View (Portable) Result: Comments: See Note; NOTES: [facility] Imaging Services [address] [place] [address] Verda 4d Chest 1 View (Portable) MR#: [id number] Acct: [id number] Name: IRIS WRAY Rep #: [id number] : 1940 F 75 From: Farhad Cedillo MD PCP: Minerva Vergara MD Status: REG ER Study: Chest 1 View (Portable) Date of Exam: 06/06/15 Exam# [id number] Ordering Dr: Kermit Verduzco MD STUDY: X-RAY [...] at 17:06 EDT Tel , Service support [phone], [place] ER #: [id number] RAD/Chest 1 View (Portable) IMPRESSION: 1. Left-sided bipolar pacemaker seen with leads appearing in good position. 2. Moderate cardiomegaly. 3. Status post sternotomy changes. 4. There is no evidence of infiltrate, atelectasis, or pleural fluid. Electronically Signed: Farhad Cedillo MD at 17:06 EDT Tel , Service support [phone], Fax CC: Minerva Vergara MD; Kermit Verduzco MD Web Retailer: Signed 06-Jun-2015 Pelvis 1 or 2 Views Result: Comments: See Note; NOTES: [facility] Imaging Services [address] [place] [address] Verdana 4d Pelvis 1 or 2 Views MR#: [id number] Acct: [id number] Name: IRIS ARRIAGA Rep #: [id number] : 1940 F 75 From: Ed Fink MD PCP: Minerva Vergara MD Status: REG ER Study: Pelvis 1 or 2 Views Date of Exam: 06/06/15 Exam# [id number] Ordering Dr: Kermit Verduzco MD STUDY: X-RAY [...] Ed Fink MD at 16:15 EDT Tel [phone], Service support [phone], RAD/Pelvis 1 or 2 Views IMPRESSION: Status post bilateral total hip replacement. Elect ronically Signed: Ed Fink MD at 16:15 EDT Tel [phone], Service support [phone], CC: Minerva Vergara MD; Kermit Verduzco MD Web Retailer: Signed 06-Jun-2015 Spine Cervical without Contras Result: Comments: See Note; NOTES: [facility] Imaging Services [address] [place] [address] Verdana 4d Spine Cervical without Contras MR#: [id number] Acct: [id number] Na me: IRIS ARRIAGA Rep #: [id number] : 1940 F 75 From: Ed Fink MD PCP: Minerva Vergara MD Status: REG ER Study: Spine Cervical without Contras Date of Exam: 06/06/15 Exam# [id number]: Kermit Verduzco MD STUDY: [...] Ed Fink MD at 16:15 EDT Tel [phone], Service support [phone], CC: Minerva Vergara MD; Kermit Verduzco MD Web Retailer: Signed 19-Apr-2015 Spine Lumbar without Contrast Result: Comments: See Note; NOTES: [facility] Imaging Services [address] [place], [place] [address] [place] [address] CAT Scan Report MR#: [id number] Acct: [id number] Name: IRIS ARRIAGA Rep #: [id number] : 1940 F 75 From: Tami Rodriguez MD PCP: Minerva Vergara MD Status: REG CLI Study: Spine Lumbar without Contrast Date of Exam: 04/19/15 Exam# [id number] Ordering Dr: Monica Mir, Out o. STUDY: [...] at 14:58 EDT Tel , Service support [phone], CC: Minerva Vergara MD; OUT OF TOWN DOCTOR Web Retailer: Signed 19-Apr-2015 Lumbar Myelogram Result: Comments: See Note; NOTES: [facility] Imaging Services [address] [place] [address] Radiology Report MR#: [id number] Acct: [id number] Name: IRIS ARRIAGA Rep #: [id number] : 1940 F 75 From: Tami Rodriguez MD PCP: Minerva Vergara MD Status: REG CLI Study: Lumbar Myelogram Date of Exam: 04/19/15 Exam# [id number] Ordering Dr: CRISTIAN COFFEY CLINICAL HISTORY : [...] at 15:12 EDT Tel , Service support [phone], RAD/Lumbar Myelogram IMPRESSI ON: There is severe spinal canal stenosis at L4-5. Electronically Signed: Jessy Rodriguez MD at 15:12 EDT Tel , Service support [phone], CC: Gina Vergara MD; CRISTIAN COFFEY Web Retailer: Signed 10-Apr-2015 Discharge Instruction Result: Comments: See Note; NOTES: [facility] Medical Records Department [address] [place] [address] Discharge Instruction 04/03/15 1440 MR#: [id number] Acct: [id number] Name: IRIS ARRIAGA Rep #: [id number] : 1940 75 From: Ellen Gilman MD [...] problems, contact your doctor. Call [facility] ([phone]) or report to the closest Emergency Room. Call 911 if necessary. 04/03/15 1441 <Electronically signed by Ellen Gilman MD> Date Ellen Gilman MD 04/10/15 0835<Electronically signed Juli Polanco MD> Cosigner Signature (If Indicated): Date Rickie Polanco MD CC: Minerva Vergara MD 10-Apr-2015 Discharge Instruction Result: Comments: See Note; NOTES: [facility] Medical Records Department [address] [place] [address] Discharge Instruction 04/03/15 1448 MR#: [id number] Acct: [id number] Name: IRIS ARRIAGA Rep #: [id number] : 1940 75 From: Rickie Polanco MD PCP: Minerva Vergara MD Status: DEP ER ED Disposition - Plan for ED Patient: Disposition: Home or Assisted Living C [facility] Complaint: Lower Extremity Injury Instructions: ED Leg [...] problems, contact your doctor. Call [facility] ([phone]) or report to the closest Emergency Room. Call 911 if necessary. 04/10 0835 <Electronically signed by Rickie Polanco MD> Date Rickie Polanco MD Cosigner Signature (If Indicated): Date CC: Minerva Vergara MD 10-Apr-2015 Emergency Department Summary Result: Comments: See Note; NOTES: [facility] Medical Records Department [address] [facility] [place] [address] Emergency Department Summary MR#: [id number] Acct: [id number] Name: IRIS VALENCIA Rep #: [id number] : 1940 75 From: Ellen Gilman MD [...] acute. Ellen Gilman MD T: NTS JOB: [id number] 04/05/15 0836 <Electronically signed by Ellen Gilman MD> Date Ellen Gilman MD 04/10/15 0835 <Electronically signed by Natanael Polanco MD> Cosigner Signature (If Indicated): Date Rickie Polanco MD CC: Minerva Vergara MD Date Dictated: 04/03/151454 Date Transcribed: 04/03/151454 Web Retailer: Signed 04-Apr-2015 12 Lead Electrocardiogram Result: Comments: See Note; NOTES: [facility] Cardiovascular Services [address] [place] [address] 12 Lead EKG 04/03/151350 MR#: [id number] Acct: [id number] Name: IGGY ARRIAGA Rep #: [id number] : 1940 75 From: Gurdeep Huang MD [...] ECG Confirmed by REINA TIRADO, GURDEEP ([id number]), news videotape editor CAROLEE MARIEE (56) on 04/04/2015 10:27:52 AM Referred By: VALENTINA Confirmed By:GURDEEP HUANG MD 04/04/15 1027 Date Gurdeep Huang MD CC: Minerva Vergara MD Date Dictated: 04/03/151350 Date Transcribed: 04/03/151350 Web Retailer: Signed 03-Apr-2015 Femur 2 Views Result: Comments: See Note; NOTES: [facility] Imaging Services [address] [place] [address] Radiology Report MR#: [id number] Acct: [id number] Name: IRIS ARRIAGA Rep #: [id number] : 1940 F 75 From: Ed Fink MD PCP: Minerva Vergara MD Status: REG ER Study: Femur 2 Views Date of Exam: 04/03/15 Exam# [id number] Ordering Dr: Rickie Polanco MD STUDY: X- [...] acute abnormality is seen. Electronically Signed: Ed Fikn MD at 12:59 EDT Tel [phone], Service support [phone], RAD/ Femur 2 Views IMPRESSION: No acute abnormality is seen. Electronically Signed: Ed Fink MD at 12:59 EDT Tel [phone], Service support [phone], CC: Minerva Vergara MD; Rickie Polanco MD Web Retailer: Signed 03-Apr-2015 Chest PA and Lateral Result: Comments: See Note; NOTES: [facility] Imaging Services [address] [place] [address] Radiology Report MR#: [id number] Acct: [id number] Name: IRIS ARRIAGA Rep #: [id number] : 1940 F 75 From: Ed Fink MD PCP: Minerva Vergara MD Status: REG ER Study: Chest PA and Lateral Date of Exam: 04/03/15 Exam# [id number] Ordering Dr: Ellen Gilman MD STUD Y: X-RAY CHEST REASON FOR EXAM: Female, 75 years old. Chest pain and chest tightness. TECHNIQUE: AP and lateral views of the chest. COMPARISON: Comparison is made with prior examination dated [facility] 2014. FINDINGS: There is blunting of the [...] Ed Fink MD at 13:05 EDT Tel [phone], Service support [phone], Fax RAD/Chest PA and Lateral IMPRESSION: Mild degree of linear scarring at the lung bases and blunting of both costophrenic angles. Electronically Signed: Ed ledezma MD at 13:05 EDT Tel [phone], Service support [phone], CC: Ellen Gilman MD; Minerva Vergara MD Web Retailer: Signed 27-Mar-2015 Abd Inc Decub and/or Erect Result: Comments: See Note; NOTES: [facility] Imaging Services [address] [place] [address] Radiology Report MR#: [id number] Acct: [id number] Name: IRIS ARRIAGA Rep #: [id number] : 1940 F 75 From: Tylor Guzman DO PCP: Minerva Vergara MD Status: REG CLI Study: Abd Inc Decub and/or Erect Date of Exam: 03/27/15 Exam# [id number] Ordering Dr: Ida Quiñonez DO STUDY: X- [...] Guzman DO at 18:34 EDT Te l [phone], Service support [phone], 0093 RAD/Abd Inc Decub and/or Erect IMPRESSION: No acute abdominal pathology is noted. Electronically Signed: Tylor Guzman DO at 18:34 EDT Tel [phone], Service support [phone], CC: Minerva Vergara MD; Ida Quiñonez DO Web Retailer: Signed 20-Mar-2015 PT Discharge Summary Result: Comments: See Note; NOTES: [facility] Physical Therapy Health[address] [place] [address] Fax REHABILITATION SERVICES DISCHARGE SUMMARY MR#: [id number] Acct: [id number] Name: IRIS ARRIAGA Rep #: [id number] : 1940 75 From: Kelvin Newman Referring [...] program. Kelvin Newman, PT T: NTS JOB: [id number] <Electronically signed by Kelvin Newman > 03/20/15 0648 CC: Signed 25-Jan-2015 Chest PA and Lateral Result: Comments: See Note; NOTES: [facility] Imaging Services [address] [place] [address] Radiology Report MR#: [id number] Acct: [id number] Name: IRIS ARRIAGA Rep #: [id number] : 1940 F 75 From: Apolinar Ansari DO PCP: Minerva Vergara MD Status: REG CLI Study: Chest PA and Lateral Date of Exam: 01/25/15 Exam# [id number] Ordering Dr: Gurdeep Huang MD STUD Y: [...] at 5:42 EDT Tel , Service support [phone], RAD/Chest PA and Lateral IMPRESSION: Very minimal left basilar atel ectasis. Otherwise, no acute process. Electronically Signed: Apolinar DO Elan at 5:42 EDT Tel , Service support [phone], CC: Minerva Vergara MD; Gurdeep Huang MD Web Retailer: Signed 24-Jan-2015 Pulmonary Function Report Comp Result: Comments: See Note; NOTES: [facility] Pulmonary Services/Neurology [address] [place] [address] Pulmonary Function Test (Comp) MR#: [id number] Acct: [id number] Name: TANISHA REDIRIS Caitlin Rep #: [id number] : 1940 75 From: Jeremie Schultz MD [...] MD C C: Gurdeep Huang MD T: [facility] JOB: [id number] SPIROMETRY Ref ULN/LLN Pre Pre Post Post [...] MD Date Dictated: 01/19/151645 Date Transcribed: 01/19/151645 Web Retailer: Signed 19-Jan-2015 Inital Evaluation - PT Result: Comments: See Note; NOTES: [facility] Physical Therapy [facility] [place] [address] Fax REHABILITATION SERVICES INITIAL EVALUATION MR#: [id number] Acct: [id number] Name: IRIS ARRIAGA Rep #: [id number] : 1940 75 From: Kelvin Newman Referring [...] to be FAXED BACK to us at [phone] for Medicare purposes. Please let me know if there are questions or concerns regarding this plan of care. & amp;#60;Electronically signed by Kelvin Newman > 01/19/15 0932 CC: EL Signed For Medicare only, by signing this I certify the plan of care. Physicians Signature Date 10-Jan-2015 ELECTROCARDIOGRAM, COMPLETE (ECG) ([id number]) Result: [MEASUREMENTS ANALYSIS] Date of Test: 08/09/2015 10:29:14; Heart Rate: 78; CO Interval: 230; QRS: 114; QT Interval: 438; Corrected QT Interval (QTc): 469; P Wave Como: 69; QRS Wave Como: -7; T Wave Como : 22; Blood Pressure: 140/90 [ECG DIAGNOSTIC STATEMENTS] Date of Test: 08/09/2015 10:29:14; Summary: Sinus Rhythm -First degree A-V block -Frequent pvcs - ventricular bigeminy Viridiana = 230- Nonspecific T-abnormality. ABNORMAL [MEASUREMENTS ANALYSIS] Date of Test: 08/09/2015 10:29:10; Heart Rate: 78; CO Interval: 230; QRS: 114; QT Interval: 438; Corrected QT Interval (QTc): 469; P Wave Como: 69; QRS [address] Como: -7; T Wave Como: 22; Blood Pressure: 140/90 [ECG DIAGNOSTIC STATEMENTS] Date of Test: 08/09/2015 10:29:10; Summary: Sinus Rhythm -First degree A-V block -Frequent pvcs -ventricular bigeminy Viridiana = 230- Nonspecific T- abnormality. ABNORMAL 05-Jan-2015 PT Discharge Summary Result: Comments: See Note; NOTES: [facility] Physical Therapy [facility] [place] [address] Fax REHABILITATION SERVICES DISCHARGE SUMMARY MR#: [id number] Acct: [id number] Name: IRIS ARRIAGA Rep #: [id number] : 1940 74 From: Kelvin Newman Referring [...] program. Kelvin Newman, PT T: NTS JOB: [id number] <Electronically signed by Kelvin Newman > 01/05/15 0931 CC: Signed 24-Nov-2014 Inital Evaluation - PT Result: Comments: See Note; NOTES: [facility] Physical Therapy [facility] [place] [address] Fax REHABILITATION SERVICES INITIAL EVALUATION MR#: [id number] Acct: [id number] Name: IRIS ARRIAGA Rep #: [id number] : 1940 74 From: Kelvin Newman Referring [...] is sleepin g well. She is a [employer] member here at [facility], but has not worked out here much [...] heat. Kelvin Newman, PT T: LORI JOB: [id number] <Electronically signed by Kelvin Newman > 11/24/14 0940 CC: Signed For [facility] only, by signing this I certify the plan of care. Physicians Signature Date 04-Nov-2014 Abdomen Single View Result: Comments: See Note; NOTES: [facility] Imaging Services [address] [place] [address] Radiology Report MR#: [id number] Acct: [id number] Name: IRIS ARRIAGA Rep #: [id number] : 1940 F 74 From: Ed Fink MD PCP: Minerva Vergara MD Status: REG CLI Study: Abdomen Single View Date of Exam: 11/04/14 Exam# [id number] Ordering Dr: Minerva Vergara MD STUDY : [...] Ed Fink MD at 14:10 EDT Tel [phone], Service support [phone], Fax RAD/Abdomen Single View IMPRESSION: Moderate amount of fecal material is seen throughout the colon. Electronically Signed: Ed Fink MD at 14: 10 EDT Tel [phone], Service support [phone], CC: Minerva Vergara MD Web Retailer: Signed 04-Nov-2014 Shoulder min 2 Views Result: Comments: See Note; NOTES: [facility] Imaging Services [address] [place] [address] Radiology Report MR#: [id number] Acct: [id number] Name: IRIS ARRIAGA Rep #: [id number] : 1940 F 74 From: Ed Fink MD PCP: Minerva Vergara MD Status: REG CLI Study: Shoulder min 2 Views Date of Exam: 11/04/14 Exam# [id number] Ordering Dr: Minerva Vergara MD STUD Y: [...] Ed Fink MD at 14:11 EDT Tel [phone], Service support [phone], CC: Minerva Vergara MD Web Retailer: Signed 21-Oct-2014 Echocardiogram Complete Result: Comments: See Note; NOTES: [facility] Cardiovascular Services [address] [place] [address] Echo Complete 10/19/14 1314 MR#: [id number] Acct: [id number] Name: CATHLEEN ARRIAGA Rep #: [id number] : 1940 74 From: Gurdeep Huang MD [...] Date Dictated: 10/19/14 1314 Date Transcribed: 10/19/141740 Web Retailer: Signed 23-Sep-2014 12 Lead Electrocardiogram Result: Comments: See Note; NOTES: [facility] Cardiovascular Services [address] [place] [address] 12 Lead EKG 09/22/14 1440 MR#: [id number] Acct: [id number] Name: JARON ARRIAGA Rep #: [id number] : 1940 74 From: Peewee Cotto MD [...] Abnormal ECG Confirmed by PEEWEE COTTO ([id number]), news videotape editor CAROLEE MARIEE (56) on 09/23/2014 2: 44:4 7 PM Referred By: TRAV Confirmed By:PEEWEE COTTO 09/23/14 1444 Date Peewee Cotto MD CC: Minerva Vergara MD Date Dictated: 09/22/14 1440 Date Transcribed: 09/22/14 144 Web Retailer: Signed 22-Sep-2014 Discharge Instruction Result: Comments: See Note; NOTES: [facility] Medical Records Department [address] [place] [address] Discharge Instruction 09/22/14 1616 MR#: [id number] Acct: [id number] Name: IRIS ARRIAGA Rep #: [id number] : 1940 74 From: Kermit Verduzco MD PCP: Minerva Vergara MD Status: [facility] ER ED Disposition - Plan for [...] Department Summary Result: Comments: See Note; NOTES: [facility] Medical Records Department [address] [place] [address] Emergency Department Summary MR#: [id number] Acct: [id number] Name: IRIS ARRIAGA Rep #: [id number] : 1940 74 From: Kermit Verduzco MD PCP: Minerva Vergara MD Status: [facility] ER DATE OF SERVICE: 09/22/2014 CHIEF [...] stood up quickly and went over to inventory planner, 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 She [...] Discharge. Kermit Verduzco MD T: NTS JOB: [id number] 09/22/14 3528 <Electronically signed by Kermit Verduzco MD> Date Kermit Verduzco MD CC: Minerva Vergara MD Date Dictated: 09/22/141614 Date Transcribed: 09/22/141614 Web Retailer: Signed 22-Sep-2014 Chest PA and Lateral Result: Comments: See Note; NOTES: [facility] Imaging Services [address] [place] [address] Radiology Report MR#: [id number] Acct: [id number] Name: IRIS ARRIAGA Rep #: [id number] : 1940 F 74 From: Ed Fink MD PCP: Minerva Vergara MD Status: REG ER Study: Chest PA and Lateral Date of Exam: 09/22/14 Exam# [id number] Ordering Dr: Kermit Verduzco MD ROWAN DY: [...] CC: Minerva Vergara MD; Kermit Verduzco MD Web Retailer: Signed Family History Unknown Family Member Name [...] Status: 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 Exercise History Comments: Exercises occasionally [...] kg/m2 Body Surface Area Calculated 1.97 m2 62-Ssu-774275:15 Comments: sitting- spo2 on 2L- 89% P66 [...] Panel, Basic Comments: PATIENT NOT FASTINGPERFORMED BY: [facility] CenterMffeyz1271 [facility] [id number] ([id number]) Calcium 9.4 mg/dL (Normal) Range: 8.7-10.3 Carbon [...] 8-27 Glucose 72 mg/dL (Normal) Range: 65-99 92-Bku-13171:13 Pathology Report Comments: PERFORMED BY: CYCIN [facility] Shelly Mdkm9239 [facility] [id number] BY: KWCYT [facility] Minto Cyto Hupph48916 [facility] [id number] Clinical Information: [id number] See MATER Comments: Material submitted: .ABDOMINAL BIOPSYClinical [...] ENTIRELY SUBMITTEDIN ONE CASSETTE.BCO/SMIPathologist provided ICD-10:D21.4, L82.1CPT .666865 59-Kfp-664058:35 Comprehensive Metabolic Profil Comments: [facility] [address] [place], [place], [address] GAP 8 (Normal) Range: 5-15 CO2 33.0 mmol/L (Abnormal) Range: 21.0-32.0 CL 95 mmol/L (Abnormal) Range: 98-107 K 3.6 mmol/L (Normal) Range: 3.5-5.1 NA 136 mmol/L (Normal) Range: 136-145 T BILI 0.70 mg/dL (Normal) Range: 0.20-1.00 ALT 23 U/L (Normal) Range: 13-56 Comments: Please note revised ALT reference range gspxqrxul17/28/2018. ALK P 79 U/L (Normal) Range: 45-117 [...] Comments: Please note revised GLUCOSE reference range xqxezpcig14/02/2018. 77-Pul-765531:35 Phosphorus Comments: [facility] [address] [place], [place], [address] PHOS 4.0 mg/dL (Normal) Range: 2.5-4.9 28-Rmb-389876:35 Uric Acid Comments: [facility] [address] [place], [place], [address] URIC 10.9 mg/dL (Abnormal) Range: 2.6-6.0 Comments: The drugs N-Acetylcysteine and Metamizole may falselydepress this assay. 08-Ptr-582020:19 Metabolic Panel, Comments: fax a copy to Dr. Tucker [phone] Huang [phone]; A courtesy copy of this report has been sent [phone], .PATIENT NOT FASTINGPERFORMED BY: [facility] Dub yv1178 Jyotsna Clements ([address]) x [place] [id number] Information: HARD DRAW/BUTTERFLY ALT (SGPT) 19 [iU]/L [...] Glucose, Serum 97 mg/dL (Normal) Range: 65-99 16-Fla-991044:56 Basic Metabolic Profile (BMP) Comments: Order Date: 08/07/17Order Info: 0667-1 - BMPComments: now stat and prnWMercy Health [address] [place], [place], [address] GAP 8 (Normal) Range: 5-15 CO2 29.0 [...] 7-18 GLU 80 mg/dL (Normal) Range: 70-110 76-Klx-635682:23 CREATININE FINGERSTICK Comments: [facility] LaboratoryPoint of [address] [place], [place] [address] CREATININE WB 1.3 mg/dL (Abnormal) Range: 0.55-1.02 11-Sep-20171:20 CBC WITH MANUAL DIFF Comments: PATIENT NOT FASTINGPERFORMED BY: [facility] Nzvyyn5029 [facility] [id number] Information: NURSE DRAW (49211) Immature Grans (Abs) 0.0 {x10E3/uL} (Normal) Range: [...] Panel, Comprehensive Comments: PATIENT NOT FASTINGPERFORMED BY: [facility] CenterCclibu3236 [facility] [id number] (96842) ALT (SGPT) 11 [iU]/L (Normal) Range: 0-32 [...] 101 mg/dL (Abnormal) Range: 65-99 11-Sep-20171:20 URINALYSIS (63933) Comments: PATIENT NOT FASTINGPERFORMED BY: [facility] CenterQswgdy7033 [facility] [id number] Microscopic Examination MICNIP (Normal) Comments: Microscopic not indicated and not performed. Nitrite, Urine Negative (Normal) Urobilinogen,Semi-Qn 1.0 mg/dL (Normal) Range: 0.2-1.0 Bilirubin Negative (Normal) Occult Blood Negative (Normal) Ketones Negative (Normal) Glucose Negative (Normal) Protein Trace (Normal) WBC Esterase Negative (Normal) Appearance Clear (Normal) Urine-Color Yellow (Normal) pH 7.0 (Normal) Range: 5.0-7.5 Specific Dema 1.018 (Normal) Range: 1.005-1.030 2-Jsu-502696:34 Basic Metabolic Profile (BMP) Comments: [facility] [address] [place], [place], [address] GAP 10 (Normal) Range: 5-15 CO2 26.0 [...] 7-18 GLU 92 mg/dL (Normal) Range: 70-110 56-Tjh-162568:03 Basic Metabolic Profile (BMP) Comments: Order Date: 05/01/17Order Info: 0667-1 - *BMPComments: Reason:[facility] [address] [place], [address] GAP 5 (Normal) Range: 5-15 CO2 28.0 [...] 7-18 GLU 64 mg/dL (Abnormal) Range: 70-110 02-Lwd-552764:16 Renal function Panel (69939) Comments: PATIENT NOT FASTINGPERFORMED BY: [facility] CenterWjmcoq9614 [facility] [id number] Albumin, Serum 4.3 g/dL (Normal) Range: 3.5-4.8 [...] Glucose, Serum 91 mg/dL (Normal) Range: 65-99 06-Caf-02164:15 Urinalysis, Complete Comments: Order Date: 03/31/17How was Urine Obtained? RN OCCUPATIONAL TO [facility] [address] [place], [address] MUCUS, URINE 0 SEEN {/hpf} [...] CLARITY Sl. Cloudy (Normal) COLOR Yellow (Normal) 83-Hvf-10635:45 Lactic Acid Comments: Yes/No query for Sepsis Lactate Rule [facility] [address] [place], [address] LACTIC ACID 0.8 mmol/L (Normal) Range: 0.4-2.0 :39 BNP,B-Type NATRIURETIC PEPTIDE Comments: [facility] [address]jm5656 [facility] [place], [address] B-TYPE HUMBLE PEP 1017.0 pg/mL (Abnormal) Range: 0-100 71-Lqc-43245:39 CBC W/Diff, Automated Comments: [facility] [address] [place], [address] ANISO 1+ (Normal) Absolute Lymph [...] 4.2-5.4 WBC 13.6 K/mm3 (Abnormal) Range: 4.4-11.0 52-Hry-57641:39 Comprehensive Metabolic Profil Comments: 'TROP' Serial specimen #1, #2, #3, or #4: 1WMer[facility] [address] [place], [address] GAP 8 (Normal) Range: 5-15 [...] Serial specimen #1, #2, #3, or #4: 1[facility] [address] [place], [place], [address] TROPONIN-I 0.06 ng/mL (Normal) Comments: TROPONIN-I EXPECTED VALUES <0.05 NEGATIVE 0.06 - 0.59 AT RISK OF VT > OR = 0.60 SUGGEST VT :03 Bedside Glucose Comments: [facility] LaboratoryPoint of Atqf[address] [place] [address] BEDSIDE GLU 146 mg/dL (Abnormal) Range: 70-110 Comments: MANAGEMENT OF PATIENT CARE PER NURSING PROTOCOL 63-Rrk-841496:25 Vitamin D,25 Hydroxy Comments: Order Date: 01/17/17Order Info: 0788-1 - *Hepatic Function Panel3 ORDERING DOCTORS:REINA REID ORDERED: LIVER LIPIDDR.CAITLIN ORDERD: BMPMARY CIESA ORDERED: TSH, VITD, L3DUeijnit [facility] p[facility] Labora [address] [place], [address] Vitamin D 25-OH 35.2 ng/mL (Normal) Comments: Vitamin D 25(OH) Status Range Deficiency <20 ng/mL (50nmol/L) Insuffciency 20 - 30 ng/mL (50 - 75 nmol/L) Sufficiency 30 - 100 ng/mL (75 - 250 nmol/L) Toxicity >100 ng/mL (>250 nmol/L) 26-Ift-440670:20 Basic Metabolic Profile (BMP) Comments: Order Date: 01/17/17Order Info: 0788-1 - *Hepatic Function Panel3 ORDERING DOCTORS:REINA REID ORDERED: LIVER LIPIDDR.CAITLIN ORDERD: BMPMARY CIESA ORDERED: TSH, VITD, B4GPwxko Date: 01/17/17Order Info: 53754-5 - *Lipid Profile CC PCPComments: 12 hours fasting, may have water.[facility] [address] [place], [address] GAP 6 (Normal) Range: 5-15 CO2 31.0 [...] 7-18 GLU 109 mg/dL (Normal) Range: 70-110 24-Ldv-645448:20 Lipid Profile Comments: Order Date: 01/17/17Order Info: 0788- 1 - *Hepatic Function Panel3 ORDERING DOCTORS:REINA REID ORDERED: LIVER LIPIDDR.NOVY ORDERD: BMPMARY CIESA ORDERED: TSH, VITD, Q9ZOtlww Date: 01/17/17 Order Info: 80290-9 - *Lipid Profile CC PCPComments: 12 hours fasting, may have water.[facility] [address] [place], [place], [address] VLDL 20 mg/dL (Normal) Range: 5-40 LDL [...] 200-240 mg/dL Borderline >240 mg/dL High Risk 20-Wsc-234164:20 Liver Profile Comments: Order Date: 01/17/17Order Info: 0788- 1 - *Hepatic Function Panel3 ORDERING DOCTORS:REINA REID ORDERED: LIVER LIPIDDR.NOVY ORDERD: BMPMARY CIESA ORDERED: TSH, VITD, Q4PYenff Date: 01/17/17 Order Info: 28008-7 - *Lipid Profile CC PCPComments: 12 hours fasting, may have water.[facility] [address] [place], [place], [address] D BILI 0.24 mg/dL (Normal) Range: 0.00-0.30 T BILI 0.60 mg/dL (Normal) Range: 0.20-1.00 ALT 27 U/L (Normal) Range: 12-78 ALK P 84 U/L (Normal) Range: 45-117 AST 27 U/L (Normal) Range: 15-37 GLOB 3.7 g/dL (Abnormal) Range: 2.3-3.5 ALB 3.8 g/dL (Normal) Range: 3.4-5.0 T PROT 7.5 g/dL (Normal) Range: 6.4-8.2 42-Yxo-188225:20 T4 Free Direct Comments: Order Date: 01/17/17Order Info: 0788- 1 - *Hepatic Function Panel3 ORDERING DOCTORS:REINA REID ORDERED: LIVER LIPIDDR.NOVY ORDERD: BMPYUDYY CIGLENYSA ORDERED: TSH, VITD, D8DCeudy Date: 01/17/17 Order Info: 63260-3 - *Lipid Profile CC PCPComments: 12 hours fasting, may have water.[facility] [address] [place], [place], [address] T4 FREE DIRECT 1.51 ng/dL (Abnormal) Range: 0.76-1.46 13-Mrz-807359:20 Thyroid Stim Hormone (TSH) Comments: Order Date: 01/17/17Order Info: 0788-1 - *Hepatic Function Panel3 ORDERING DOCTORS:REINA REID ORDERED: LIVER LIPIDDR.NOVY ORDERD: BMPMARY CIESA ORDERED: TSH, VITD, V6OMauqo Date: 01/17/17Order Info: [id number] - *Lipid Profile CC PCPComments: 12 hours fasting, may have water.[facility] [address] [place], [address] TSH 3.02 {uIU/mL} (Normal) Range: 0.358-3.74 95-Nzq-537376:00 Pathology Report Comments: PERFORMED BY: [facility] Jgxox53303 [facility] [id number] BY: [facility] Dermatopathology Dagtr[address] [facility] [address]ABaptist Health Deacon[facility] [id number] Information: [id number] See MATER Comments: Material submitted: .SHAVE BIOPSY OF RIGHT ABDOMENClinician provided ICD-10:L82.1Clinical history: . Note (Normal) Diagnosis:BENIGN VERRUCAL KERATOSIS.02/08/2017Electronically signed: .Gege Reece MD, DermatopathologistGross description: .SUBMITTED IN FORMALIN LABELED IRIS ARRIAGA AND IS DESIGNATEDRIGHT ABDOMEN IS A FRAGMENT OF FERGUSON TISSUE THAT MEASURES 1.4 X .8X .3 CM. THE MARGINS ARE INKED BLUE. THE SPECIMEN IS TRISECTEDAND SUBMITTED IN TOTO.XJW/BXSPathologist provided ICD-10:D23.5CPT .059548 36-Vyi-521167:12 Basic Metabolic Profile (BMP) Comments: Order Date: 01/15/17Order Info: 0667-1 - *BMPComments: Reason:[facility] [address] [place], [address] GAP 5 (Normal) Range: 5-15 CO2 32.0 [...] 7-18 GLU 82 mg/dL (Normal) Range: 70-110 1-Isc-758227:04 Basic Metabolic Profile (BMP) Comments: Order Date: 01/08/17Order Info: 0667-1 - *BMPComments: Reason: BMP: 1 week[facility] [address] [place], [address] GAP 11 (Normal) Range: 5-15 CO2 28.0 [...] <126 mg/dLsuggests IMPAIRED HOMEOSTASIS per A.D.A. criteria. 81-Nzs-419152:28 Lipid Profile Comments: Order Date: 06/18/16Order Info: 0788- 1 - *Hepatic Function PanelLIVER AND LIPID WERE ORDERED BY INE LEVEL ORDERED BY Date: 06/18/16Order Info: 46061-0 - *Lipid Profi le CC PCPComments: 12 hours fasting, may have water.[facility] [address] [place], [place], [address] VLDL 14 mg/dL (Normal) Range: 5-40 LDL [...] 200-240 mg/dL Borderline >240 mg/dL High Risk 41-Pvk-873804:28 Liver Profile Comments: Order Date: 06/18/16Order Info: 0788- 1 - *Hepatic Function PanelLIVER AND LIPID WERE ORDERED BY ATININE LEVEL ORDERED BY Date: 06/18/16Order Info: 54260-5 - *Lipid Profi le CC PCPComments: 12 hours fasting, may have water.[facility] [address] [place], [place], [address] D BILI 0.48 mg/dL (Abnormal) Range: 0.00-0.30 T BILI 1.10 mg/dL (Abnormal) Range: 0.20-1.00 ALT 62 U/L (Normal) Range: 12-78 ALK P 94 U/L (Normal) Range: 45-117 AST 59 U/L (Abnormal) Range: 15-37 GLOB 3.3 g/dL (Normal) Range: 2.3-3.5 ALB 3.7 g/dL (Normal) Range: 3.4-5.0 T PROT 7.0 g/dL (Normal) Range: 6.4-8.2 16-Xtl-980933:28 Serum Creatinine AND GFR Comments: Order Date: 06/18/16Order Info: 0788-1 - *Hepatic Function PanelLIVER AND LIPID WERE ORDERED BY ATININE LEVEL ORDERED BY Date: 06/18/16Order Info: 49266-3 - *Lipid i ashley SOLOMON PCPComments: 12 hours fasting, may have water.[facility] [address] [place], [place], [address] EST GFR - AA 52 mL/min (Abnormal) Comments: GFR Calc EST GFR 43 mL/min (Abnormal) Comments: Non- GFR Calc CREAT,SERUM 1.29 mg/dL (Abnormal) Range: 0.55-1.02 Comments: The validity of the calculated GFR AND GFRAA in patients over70 years has not been determined. Clinical correlation isessential. 49-Pli-498810:36 Anticardiolipin IgA,G,M Comments: [facility] (refer to report [...] Positive: >20 - 80 High Positive: >80 21-Uyz-039732:36 Comprehensive Metabolic Profil Comments: [facility] [address] [place], [place], [address] GAP 4 (Abnormal) Range: 5-15 CO2 26.0 [...] 7-18 GLU 103 mg/dL (Normal) Range: 70-110 35-Xtt-638358:36 Fact V Leiden Mutation Comments: [facility] (refer to report for specific site)refer to report for address and phone number COMMENT (Normal) Comments: Comment:Genetic counselors are available for health care providersto discuss results at [phone]).Methodology:DNA analysis of the Factor V gene was performed byallele-specific PCR. The d iagnostic sensitivity andspecificity is >99% for both. Molecular-based testing ishighly accurate, but as in any laboratory test, diagnosticerrors may occur. All test results must be combined withclin ical information for the most accurate interpretation.This test was developed and its performance characteristicsdetermined by [employer]. It has not been cleared or approvedby the Food and Drug Administra tion.References:Nicholas Armijo (1995). Clin Lab Med 16:169-186.Raul Cano, PhD, Cinthya May, PhD, Wilbur Clemente, PhD, Marly Wen MTammiSTammi, PhD, Lilia Way, PhD, Kaia Reynaga, PhD, Richard Juarez PhD, [facility] FACTOR V LEIDEN (Normal) Comments: Result: [...] in the workup for venous thrombosis include hjcW20787P mutation in the factor II (prothrombin) gene,protein S and C deficiency, and antithrombin deficiencies.Anticardiolipin antibody and lupus 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 an alysismay be appropriate for certain patients, as well ashomocysteine levels.Contact your local [facility] for information on how to orderadditional testing if desired. 79-Sjv-544218:36 Factor II, DNA Analysis Comments: [facility] (refer to report for specific site)refer to report for address and phone number COMMENT (Normal) Comments: Additional Information:Genetic Counselors are available for health care providersto discuss results at [phone]).Methodology:DNA analysis of the Factor II gene was [...] Drug Administration.Poort SR, et al. Blood. 1996; 88:7089-3816.Robert GUTIÉRREZ. Circulation. 2004; 110:e15-e18.Stanislav I, et al. Arterioscler Thromb Vasc Biol. 1999;19:700-703.Raul Cano, Ph D, Cinthya May, PhD, Wilbur Clemente, PhD, Marly Wen M.S., PhD, Lilia Way, PhD, Kaia Reynaga, PhD, Richard Juarez, PhD, [facility] COMMENT (Normal) Comments: Comment:A point mutation ([id number]) in the factor II (prothrombin)gene is the [...] individual mutations. This assay detects onlythe prothrombin X10243Y mutation and does not measuregenetic abnormalities elsewhere in the genome. Otherthrombotic r isk factors may be pursued through systematicclinical laboratory analysis. These factors include lmeP643P (Leiden) mutation in the Factor V gene, plasmahomocysteine levels, as well as testing for defici encies ofantithrombin III, protein C and protein S. FACTOR II,DNA (Normal) Comments: Factor II, DNA Analysis NEGATIVE No mutation identified. 97-Uri-929268:36 Partial Thromboplast Time Comments: [facility] [address] [place], [place], [address] PTT 28.3 s (Normal) Range: 24.1-36.2 09-Raj-374574:36 Prothrombin Time w/INR Comments: [facility] [address] [place], [place], [address] INR 1.3 (Normal) PROTIME 15.5 s (Abnormal) Range: 11.7-14.9 :39 CBC W/Diff, Automated Comments: Order Date: 12/02/16Order Info: 0184-1 - CBCDComments: coipy to Dr. jessie armendariz statOrder Date: 12/02/16Order Info: 0184-1 - CBCDComments: coipy to Dr. jessie armendariz statOrder Date: 12/02/16O rder Info: 0788-1 - LIVERComments: to stat copy to Dr. natal[facility] armendarizMet[facility] [address] [place], [address] Absolute Lymph 1.13 {X10_3/ul} (Normal) Range: 0.83-4.51 [...] 4.2-5.4 WBC 8.8 K/mm3 (Normal) Range: 4.4-11.0 85-Dfo-19264:39 Liver Profile Comments: Order Date: 12/02/16Order Info: 0788-1 - LIVEROrder Date: 12/02/16Order Info: 0788-1 - LIVERComments: to stat copy to Dr. estrada [facility] [address] [place], [place], [address] D BILI 0.28 mg/dL (Normal) Range: 0.00-0.30 T BILI 0.80 mg/dL (Normal) Range: 0.20-1.00 ALT 33 U/L (Normal) Range: 12-78 ALK P 71 U/L (Normal) Range: 45-117 AST 30 U/L (Normal) Range: 15-37 GLOB 2.9 g/dL (Normal) Range: 2.3-3.5 ALB 3.8 g/dL (Normal) Range: 3.4-5.0 T PROT 6.7 g/dL (Normal) Range: 6.4-8.2 49-Tcz-992351:38 URINE DAR CULTURE (NOREEN Comments: PATIENT NOT FASTINGPERFORMED BY: [facility] Mkdjak4983 [facility] [id number] Information: SRC:UC COL COUNT) (51399) Antimicrobial MIHEAD (Normal) Comments: S = Susceptible; [...] Colonies/mL (Abnormal) Urine Final report Culture,Comprehensive (Abnormal) 18-Pco-17653:33 CBC W/Diff, Automated Comments: Order Date: 10/31/16Order Info: 0184-1 - CBCDOrder Info: 45725-6 - SEDOrder Date: 10/31/16Order Info: 0184-1 - CBCDOrder Info: 36771-8 - SEDOrder Date: 10/31/16Order Info: 3040-3 - LIPASEW [facility] [address] [place], [address] Absolute Lymph 1.10 {X10_3/ul} (Normal) Range: 0.83-4.51 [...] 4.2-5.4 WBC 11.1 K/mm3 (Abnormal) Range: 4.4-11.0 13-Wno-62722:33 Comprehensive Metabolic Profil Comments: Order Date: 10/31/16Order Info: 0786-1 - CMPOrder Info: 1798-8 - AMYOrder Info: 3040-3 - LIPASEOrder Date: 10/31/16Order Info: 3040-3 - LIPASEComments: all [facility] [address] [place], [address] GAP 10 (Normal) Range: 5-15 CO2 26.0 [...] 7-18 GLU 86 mg/dL (Normal) Range: 70-110 89-Jgh-48897:33 Erythrocyte Sed Rate Comments: Order Date: 10/31/16Order Info: 0184-1 - CBCDOrder Info: 20320-6 - SEDOrder Date: 10/31/16Order Info: 0184-1 - CBCDOrder Info: 22887-0 - SEDOrder Date: 10/31/16Order Info: 3040-3 - LIPASEW [facility] [address] [place], [address] SED RATE 12 mm/h (Normal) Range: 0-30 :33 Lipase (01314) Comments: Order Date: 10/31/16Order Info: 0786- 1 - CMPOrder Info: 1798-8 - AMYOrder Info: 3040-3 - LIPASEOrder Date: 10/31/16Order Info: 3040-3 - LIPASEComments: all [facility] [address] [place], [address] LIPASE 216 U/L (Normal) Range: 73-393 :33 Amylase (78678) Comments: Order Date: 10/31/16Order Info: 0786- 1 - CMPOrder Info: 1798-8 - AMYOrder Info: 3040-3 - LIPASEOrder Date: 10/31/16Order Info: 3040-3 - LIPASEComments: all [facility] [address] [place], [address] QUENTIN 56 U/L (Normal) Range: 25-115 70-Ugt-72054:45 Urinalysis, Office (50122) UA - LEUKOCYTE ESTERASE Negative (Normal) UA - NITRITE Negative (Normal) URINE UROBILINGN NOREEN TIMED Normal mg/dL (Normal) UA - PROTEIN Negative mg/dL (Normal) UA - PH 6 (Abnormal) UA - BLOOD Non Hemolyzed Trace (Normal) UA - SPECIFIC GRAVITY 1.015 (Normal) UA - KETONES Negative mg/dL (Normal) UA - BILIRUBIN Negative (Normal) UA - GLUCOSE Negative (Normal) 04-Hju-896129:00 Pathology Report Comments: PERFORMED BY: [facility] Cyto Kgitl87154 [facility] [id number] Information: [id number] See MATER Comments: Material submitted: .SHAVE BIOPSY [...] ARE 4 PIECES TOTAL./CORCOR/CORPathologist provided ICD-10:L82.1, B07.8CPT .930605 1-Sik-172967:50 Basic Metabolic Profile (BMP) Comments: DR TUCKER IS ORDERING THE BMPOrder Date: 06/28/16OV Order #: [id number] Health [address] [place], [address] GAP 9 (Normal) Range: 5-15 CO2 28.0 [...] 7-18 GLU 89 mg/dL (Normal) Range: 70-110 8-Sic-163780:50 Lipid Profile Comments: DR TUCKER IS ORDERING THE BMPOrder Date: 06/28/16OV Order #: [id number] Main Campus Medical Center [address] [place], [place], [address] VLDL 14 mg/dL (Normal) Range: 5-40 LDL [...] 200-240 mg/dL Borderline >240 mg/dL High Risk 2-Vkp-172015:50 Liver Profile Comments: DR TUCKER IS ORDERING THE BMPOrder Date: 06/28/16OV Order #: [id number] Main Campus Medical Center [address] [place], [address] D BILI 0.11 mg/dL (Normal) Range: 0.00-0.30 [...] ORDERING THE BMPOrder Date: 06/28/16 Order #: [id number] Main Campus Medical Center [address] [place], [place], [address] T4 THYROXIN 12.8 ug/dL (Normal) Range: 4.8-13.9 8-Tfh-581827:50 Thyroid Stim Hormone (TSH) Comments: DR TUCKER IS ORDERING THE BMPOrder Date: 06/28/16 Order #: [id number] Main Campus Medical Center [address] [place], [place], [address] TSH 2.26 {uIU/mL} (Normal) Range: 0.358-3.74 23-Doo-239361:26 URINE DAR CULTURE-IDENTIFICATN Comments: PATIENT NOT FASTINGPERFORMED BY: [facility]CoPalisades Medical CenterPaustw7092 [facility] [id number] Information: SRC:ANDREW (74764) Result 1 ECV (Abnormal) Comments: Escherichia coli, [...] report Culture,Comprehensi (Abnormal) ve :38 Urinalysis, Office (35463) UA - LEUKOCYTE ESTERASE Negative (Normal) UA - NITRITE Negative (Normal) URINE UROBILINGN NOREEN TIMED Normal mg/dL (Normal) UA - PROTEIN Negative mg/dL (Normal) UA - PH 5 (Abnormal) UA - BLOOD Hemolyzed Trace (Normal) UA - SPECIFIC GRAVITY 1.010 (Normal) UA - KETONES Negative mg/dL (Normal) UA - BILIRUBIN Negative (Normal) UA - GLUCOSE Negative (Normal) 07-Zhi-550092:02 Comprehensive Metabolic Profil Comments: [facility] [address]gnk[address] [place], [address] GAP 8 (Normal) Range: 5-15 [...] 7-18 GLU 85 mg/dL (Normal) Range: 70-110 21-Jik-366316:02 T4 Total, Thyroxin Comments: [facility] [address]mb[address] [place], [address] T4 THYROXIN 13.1 ug/dL (Normal) Range: 4.8-13.9 59-Tjn-540556:02 Thyroid Stim Hormone (TSH) Comments: C[facility] [address] [place], [address] TSH 1.34 {uIU/mL} (Normal) Range: 0.358-3.74 :25 COLON BIOPSY (CHOOSE See Note (Normal) Comments: [facility] [address] [place], [address] SITE) Comments: Patient: IRIS ARRIAGA : 1940 (76/F) Acct Num: [id number] Phys: Clifford Gifford Unit Num: [id number] Loc: EN Specimen: [id number] Received: 01/30/16 - 50 Spec Type: COLON BX TISSUES TISSUES: GROSS DESCRIPTION Received is one container labeled with the patient name and designated mid ascending polyp. The specimen consists of two irregular fragments of light tansoft tissue that in aggregate measure 0.3 x 0.2 x 0.1 cm. The specimen is totally submitted in one cassette. / SJ:juan j 01/30/16 TC:5 CPT:04825 HEADER OPERATION: Colonoscopy PRE-OP DI AGNOSIS: Screening TISSUE SUBMITTED: Mid ascending polyp MICROSCOPIC DESCRIPTION Slides are reviewed. MICROSCOPIC DIAGNOSIS Mid ascending colon polyp, biopsy: Fragments of tubular adenoma. AM:juan j 01/31/16 Signed [facility] 01/31/16 <signature on file> 55-Hyy-885277:12 Basic Metabolic Profile (BMP) Comments: ORDERED BMPDR.REINA ORDERED TSH T4 LIPID [facility] [address] [place], [address] GAP 6 (Normal) Range: 5-15 CO2 27.0 [...] 7-18 GLU 78 mg/dL (Normal) Range: 70-110 48-Cyk-916257:12 Lipid Profile Comments: ORDERED BMPDR.MOODISPAW ORDERED TSH T4 LIPID [facility] [address] [place], [address] VLDL 15 mg/dL (Normal) Range: [...] 200-240 mg/dL Borderline >240 mg/dL High Risk 09-Ifr-797429:12 Liver Profile Comments: ORDERED BMPDR.MOODISPAW ORDERED TSH T4 LIPID [facility] [address] [place], [address] D BILI 0.17 mg/dL (Normal) Range: 0.00-0.30 T BILI 0.50 mg/dL (Normal) Range: 0.20-1.00 ALT 37 U/L (Normal) Range: 12-78 ALK P 68 U/L (Normal) Range: 50-136 AST 26 U/L (Normal) Range: 15-37 GLOB 3.8 g/dL (Abnormal) Range: 2.3-3.5 ALB 3.5 g/dL (Normal) Range: 3.4-5.0 T PROT 7.3 g/dL (Normal) Range: 6.4-8.2 35-Yrv-580377:12 T4 Total, Thyroxin Comments: ORDERED BMPDR.DELIOJOCELINE ORDERED TSH T4 [facility] [address]bour[address] [place], [place], [address] T4 THYROXIN 14.3 ug/dL (Abnormal) Range: 4.8-13.9 90-Cpq-696298:12 Thyroid Stim Hormone (TSH) Comments: ORDERED BMPDR.DELIOISPAW ORDERED TSH T4 [facility] [address] [place], [place], [address] TSH 2.32 {uIU/mL} (Normal) Range: 0.358-3.74 00-Hyg-83445:37 Rapid Flu (70789 x 2) Influenza A Ag neg (Normal) 18-Yoe-608951:28 Metabolic Panel, Basic Comments: PATIENT NOT FASTINGPERFORMED BY: [facility] Savgly4329 [facility] [id number] (88566) Calcium, Serum 8.7 mg/dL (Normal) Range: 8.7-10.3 [...] Glucose, Serum 70 mg/dL (Normal) Range: 65-99 12-Vxv-998729:28 CBC (Auto) (64715) Comments: PATIENT NOT FASTINGPERFORMED BY: [facility]CoPal[facility]ades [facility] CenterMaxxkb4022 [facility] [id number] Information: [id number] Platelets 224 {x10E3/uL} (Normal) Range: 150-379 RDW 14.8 % (Normal) Range: 12.3-15.4 MCHC 33.0 g/dL (Normal) Range: 31.5-35.7 MCH 31.9 pg (Normal) Range: 26.6-33.0 MCV 97 fL (Normal) Range: 79-97 Hematocrit 39.4 % (Normal) Range: 34.0-46.6 Hemoglobin 13.0 g/dL (Normal) Range: 11.1-15.9 RBC 4.08 {x10E6/uL} (Normal) Range: 3.77-5.28 WBC 8.1 {x10E3/uL} (Normal) Range: 3.4-10.8 93-Mop-364948:51 URINE DAR CULTURE-IDENTIFICATN Comments: PATIENT NOT FASTINGPERFORMED BY: LabCoPalisades Medical CenterYthoyk9482 [facility] [id number] Information: [id number] ([id number]) Result 1 MUG (Normal) Comments: Mixed urogenital flora2,000 Colonies/mL Urine Culture,Comprehensive Final report (Normal) 72-Qyn-89713:28 Magnesium Comments: [facility] [address] [place], [address] MG 2.1 mg/dL (Normal) Range: 1.8-2.4 68-Wrx-24094:28 Potassium Comments: [facility] [address] [place], [address] K 5.0 mmol/L (Normal) Range: 3.5-5.1 58-Kzm-324747:12 LIPASE (05526) Comments: Test(s) Potassium, Serum called to Gina Vergara on 11/21/2015 at 03:54 ESTPATIENT NOT FASTINGPERFORMED BY: [facility]6370 [facility] [id number] Lipase, Serum 61 U/L (Abnormal) Range: 0-59 52-Qcy-665315:12 AMYLASE (07727) Comments: Test(s) Potassium, Serum called to Gina Mettlgerald [facility] on 11/21/2015 at 03:54 ESTPATIENT NOT FASTINGPERFORMED BY: SearcheezePalisades Medical CenterWzcueq9795 [facility] [id number] Amylase, Serum 84 U/L (Normal) Range: 31-124 19-Ofq-314671:20 Urinalysis, Office (31542) UA - LEUKOCYTE ESTERASE Trace (Normal) UA - NITRITE Negative (Normal) URINE UROBILINGN NOREEN TIMED Normal mg/dL (Normal) UA - PROTEIN 100 mg/dL (Normal) UA - PH 6.0 (Normal) Comments: 5.5 UA - BLOOD Negative (Normal) UA - SPECIFIC GRAVITY 1.030 (Abnormal) UA - KETONES 15 mg/dL (Abnormal) UA - BILIRUBIN Moderate (Normal) UA - GLUCOSE Negative (Normal) 65-Zzk-747935:12 Metabolic Panel, Basic Comments: Test(s) Potassium, Serum called to Likely.cogerald [facility] on 11/21/2015 at 03:54 ESTPATIENT NOT FASTINGPERFORMED BY: SearcheezePalisades Medical CenterDfstqs5863 [facility] [id number] (86096) Calcium, Serum 8.9 mg/dL (Normal) Range: 8.7-10.3 [...] Comments: Specimen received hemolyzed. Clinical correlation indicated. 37-Mhq-677598:12 CBC WITH MANUAL DIFF Comments: Test(s) Potassium, Serum called to [employer] on 11/21/2015 at 03:54 ESTPATIENT NOT FASTINGPERFORMED BY: MISHA [facility] Ulnkxg2123 [facility] [id number] Information: [id number] ([id number]) Immature Grans (Abs) 0.0 {x10E3/uL} (Normal) Range: [...] 3.77-5.28 WBC 16.1 {x10E3/uL} (Abnormal) Range: 3.4-10.8 2-Wte-292084:50 Urinalysis, Complete Comments: Order Date: 11/15/15How was Urine Obtained? RN OCCUPATIONAL TO [facility] [address] [place], [address] HYALINE CAST 5-10 SEEN {/lpf} [...] (Normal) CLARITY Clear (Normal) COLOR Yellow (Normal) 8-Lyh-168678:00 Basic Metabolic Profile (BMP) Comments: [facility] [address] [place], [place], [address] GAP 6 (Normal) Range: 5-15 CO2 24.0 [...] 7-18 GLU 88 mg/dL (Normal) Range: 70-110 7-Zms-212460:00 CBC W/Diff, Automated Comments: [facility] [address] [place], [address] SMEAR COMMENT SCANNED (Normal) Absolute [...] 4.2-5.4 WBC 16.9 K/mm3 (Abnormal) Range: 4.4-11.0 0-Dhk-[id number] Lipase Comments: [facility] [id number] [place], [address] LIPASE 446 U/L (Abnormal) Range: 73-393 [id number] Liver Profile Comments: [facility] [id number] [place], [place], [id number] D BILI 0.06 mg/dL (Normal) Range: 0.00-0.30 T BILI 0.40 mg/dL (Normal) Range: 0.20-1.00 ALT 94 U/L (Abnormal) Range: 12-78 ALK P 66 U/L (Normal) Range: 50-136 AST 76 U/L (Abnormal) Range: 15-37 Comments: Moderate Hemolysis, Result may be falsely increased. GLOB 4.0 g/dL (Abnormal) Range: 2.3-3.5 ALB 3.3 g/dL (Abnormal) Range: 3.4-5.0 T PROT 7.3 g/dL (Normal) Range: 6.4-8.2 [id number]:00 Thyroid Stim Hormone (TSH) Comments: [facility] [id number] [place], [address] TSH 1.12 {uIU/mL} (Normal) Range: 0.358-3.74 [id number] Thyroid Stim Hormone (TSH) Comments: [facility] [id number] [place], [place], [id number] TSH 0.59 {uIU/mL} (Normal) Range: 0.358-3.74 [id number]-[id number] Pathology Report Comments: PERFORMED BY: KWCYT [facility] [id number] [facility] [facility] [id number] BY: INDYL [facility] Uhpiuntggkbu74[address] [place] [address] [id number] BY: LX [facility] Icgwiln45411 [facility] [id number] Information: [id number] See MATER Comments: Material submitted: .SHAVE CHESTClinician [...] BISECTED AND SUBMITTED IN TOTO.XJW/TMZPathologist provided ICD-10:L57.0CPT .109356 01-Dor-528277:40 Basic Metabolic Profile (BMP) Comments: 'TROP' Serial specimen #1, #2, #3, or #4: [address] [place] [address] [address]ks[address]fem3771 [place], [address] GAP 7 (Normal) Range: 5-15 CO2 27.0 [...] 7-18 GLU 76 mg/dL (Normal) Range: 70-110 34-Qdd-034069:40 BNP,B-Type NATRIURETIC PEPTIDE Comments: [facility] [address] [place], [place], [address] B-TYPE HUMBLE PEP 406.4 pg/mL (Abnormal) Range: 0-100 77-Qff-590440:40 CBC W/Diff, Automated Comments: [facility] Ugmdcdabhv43[address] [place], [place], [address] Absolute Lymph 1.25 {X10_3/ul} (Normal) Range: 0.83-4.51 [...] 4.2-5.4 WBC 9.2 K/mm3 (Normal) Range: 4.4-11.0 92-Wpd-543217:40 Troponin-I Comments: 'TROP' Serial specimen #1, #2, #3, or #4: [facility] H[address]jftksk69[address] [place], [address] TROPONIN-I 0.03 ng/mL (Normal) Comments: TROPONIN-I EXPECTED VALUES <0.05 NEGATIVE 0.06 - 0.59 AT RISK OF VT > OR = 0.60 SUGGEST VT 18-Xqc-035901:25 Urinalysis, Complete Comments: Order Date: 08/09/15How was Urine Obtained? [facility] [address]tzucxkuee2338[place], [address] MUCUS, URINE 0 SEEN {/hpf} [...] (Normal) CLARITY Clear (Normal) COLOR Straw (Normal) 81-Cvm-359807:26 Basic Metabolic Profile (BMP) Comments: 'TROP' Serial specimen #1, #2, #3, or #4: [address] [place] [address] Bhvfwackvh2766 [address] [place], [place], [address] GAP 4 (Abnormal) Range: 5-15 CO2 29.0 [...] 7-18 GLU 66 mg/dL (Abnormal) Range: 70-110 17-Jbg-484218:26 CBC W/Diff, Automated Comments: [facility] [address]juxtq[address] [place], [place], [address] SMEAR COMMENT SCANNED (Normal) Absolute Lymph 2.04 [...] 4.2-5.4 WBC 18.6 K/mm3 (Abnormal) Range: 4.4-11.0 25-Ofn-191726:26 Prothrombin Time w/INR Comments: [facility] Zgfvctshwn[address] [place], [address] INR 1.1 (Normal) PROTIME 14.0 s (Normal) Range: 11.7-14.9 65-Qcw-658851:26 Troponin-I Comments: 'TROP' Serial specimen #1, #2, #3, or #4: 1[facility] [address] [place], [address] TROPONIN-I < 0.02 ng/mL (Normal) Comments: TROPONIN-I EXPECTED VALUES <0.05 NEGATIVE 0.06 - 0.59 AT RISK OF VT > OR = 0.60 SUGGEST VT 10-Inf-132786:02 Bilirubin, Direct Comments: ORDERED LIPID,LIVERDRCLOVER ORDERED CBCD,TSH,LIPID,CMP,[facility] Fnoptozbnu8309 [address] [place], [address] D BILI 0.15 mg/dL (Normal) Range: 0.00-0.30 07-Cxf-107483:02 CBC W/Diff, Automated Comments: [facility] Thnqrfajhm[address] [place], [address] Absolute Lymph 0.99 {X10_3/ul} (Normal) Range: 0.83-4.51 [...] 4.2-5.4 WBC 7.5 K/mm3 (Normal) Range: 4.4-11.0 59-Nsc-457058:02 Comprehensive Metabolic Comments: ORDERED LIPID,LIVERDRCLOVER ORDERED CBCD,TSH,LIPID,CMP,[facility] Rzqwhgzonk2098 [place], [address] Profil GAP 8 (Normal) Range: 5-15 CO2 [...] 7-18 GLU 80 mg/dL (Normal) Range: 70-110 25-Xir-033740:02 Lipid Profile Comments: ORDERED LIPID,LIVERDRCLOVER ORDERED CBCD,TSH,LIPID,CMP,[facility] Psqtizcxia27[address] [place], [address] VLDL 18 mg/dL (Normal) Range: [...] 200-240 mg/dL Borderline >240 mg/dL High Risk 00-Caa-713061:02 Thyroid Stim Hormone Comments: ORDERED LIPID,LIVERDRCLOVER ORDERED CBCD,TSH,LIPID,CMP,[facility] C[address]whzvqrjc6[address] [place], [address] (TSH) TSH 1.37 {uIU/mL} (Normal) Range: 0.358-3.74 90-Tun-082411:02 Urinalysis, Complete Comments: How was Urine Obtained? [facility] [address] [place], [address] MUCUS, URINE 0 SEEN {/hpf} [...] (Normal) CLARITY Clear (Normal) COLOR Straw (Normal) 87-Dsq-090633:40 Basic Metabolic Profile (BMP) Comments: REDRAW. PREVIOUS SPECIMEN REJECTED DUE TOHEMOLYSIS. 06/06/15 15[address].[facility] Hal[address]57[address] [place], [place], [address] GAP 6 (Normal) Range: 5-15 CO2 28.0 [...] <126 mg/dLsuggests IMPAIRED HOMEOSTASIS per A.D.A. criteria. 03-Lts-985452:10 CBC W/Diff, Automated Comments: [facility] [address]ax[address]ieq6[address] [place], [place], [address] Absolute Lymph 1.33 {X10_3/ul} (Normal) Range: 0.83-4.51 [...] Panel Comments: PATIENT NOT FASTINGPERFORMED BY: [facility] Gxwvvn6033 [facility] [id number] Information: [id number] ([id number]) Albumin, Serum 3.6 g/dL (Normal) Range: 3.5-4.8 [...] (Abnormal) Range: 65-99 Comments: Client Requested Flag 26-Lqn-867091:57 CK-MB Quantitative and Index Comments: Serial Specimen #1, #2 or #3? 2Comments: Should be drawn 2H after initial Troponin obtained'TROP' Serial specimen #1, #2, #3, or #4: 2Test performed at:[facility] [address] [place] [address] CPKMB 1.1 ng/mL (Normal) Range: 0.0-5.0 Comments: CK-MB and RI Interpretation MB Relative Index Non-AMI <or= 5 NA Indeterminate > 5 <or= 4 AMI > 5 > 4 CPK TOTAL 48 U/L (Normal) Range: 26-192 06-Zlm-350589:57 Troponin-I Comments: Serial Specimen #1, #2 or #3? 2Comments: Should be drawn 2H after initial Troponin obtained'TROP' Serial specimen #1, #2, #3, or #4: 2Test performed at:[address] [place] [address] TROPONIN-I < 0.02 ng/mL (Normal) Comments: TROPONIN-I EXPECTED VALUES <0.05 NEGATIVE 0.06 - 0.59 AT RISK OF VT > OR = 0.60 SUGGEST VT 93-Ibm-634458:33 Comprehensive Metabolic Profil Comments: Test performed at:[facility] [address] [place] [address] GAP 6 (Normal) Range: 5-15 [...] Comments: Please note revised CREATININE reference range shnyzloxe99/22/2015. BUN 35 mg/dL (Abnormal) Range: 7-18 GLU 53 mg/dL (Abnormal) Range: 70-110 89-Jsj-310769:33 CRP Comments: Test performed at:[facility] [address] [place] [address] C-REACTIVE PROT < 2.90 mg/L (Normal) Range: 0.0-3.0 Comments: C-Reactive Protein (CRP) provides useful information for thediagnosis, therapy and monitoring of inflammatory processesand associated diseases. For the evaluation of Relative Riskfor Cardiovascular Dise ase, a High Sensitivity CRP (HSCRP)should be ordered. 20-Qld-921531:33 Erythrocyte Sed Rate Comments: Test performed at:[facility] [address] [place] [address] SED RATE 7 mm/h (Normal) Range: 0-30 95-Kpz-216559:38 URINE DAR CULTURE-NOREEN COL Comments: PATIENT NOT FASTINGPERFORMED BY: MISHA [facility] Qgjegv8595 [facility] [place] [id number] Information: SRC:URC [id number] COUNT (15421) Result 1 NG36 (Normal) Comments: No growth in 36 - 48 hours. Urine Culture,Comprehensive Final report (Normal) 87-Mkj-249347:07 Urinalysis, Office (53365) UA - LEUKOCYTE ESTERASE Trace (Normal) UA - NITRITE Negative (Normal) URINE UROBILINGN NOREEN TIMED 2 mg/dL (Normal) UA - PROTEIN Negative mg/dL (Normal) UA - PH 5.0 (Normal) UA - BLOOD Negative (Normal) UA - SPECIFIC GRAVITY 1.015 (Normal) UA - KETONES Small mg/dL (Normal) UA - BILIRUBIN Negative (Normal) UA - GLUCOSE Negative (Normal) 08-Feb-20159:39 Pathology Report Comments: PERFORMED BY: eVropaCYT [facility] [place] Cyto Mhkhr37716 [facility] [id number] BY: [facility] Dermatopathology Ilpjhiz[address] [id number] Information: [id number] See MATER Comments: Material submitted: .SHAVE BIOPSY [...] HOLOGIC CORRELATIONIS RECOMMENDED.02/13/2015Electronically signed: .Gege Reece MD, Stark topathologistGross description: .RECEIVED IS A CONTAINER LABELED IRIS ARRIAGA AND DESIGNATEDUPPER LESION ON CHEEK. IN FORMALIN IS A FERGUSON TISSUE MEASURING 4 X4 X 1 MM. IT IS INKED PURPLE, BISECTED, AND BOTH HALVES ARESUBMITTED IN A SINGLE CASSETTE.COR/BXSPathologist provided ICD-9:686.9, 682.0CPT .273609, 997078, 814081 48-Flk-683532:29 T4 Total, Thyroxin Comments: PER PT ONLY TSH AND T4 TODAYTest performed at:[facility] [address] [place] [address] T4 THYROXIN 13.2 ug/dL (Normal) Range: 4.8-13.9 81-Hfg-960631:29 Thyroid Stim Hormone (TSH) Comments: PER PT ONLY TSH AND T4 TODAYTest performed at:[facility] [address] [place] [address] TSH 3.74 {uIU/mL} (Normal) Range: 0.358-3.74 07-Qqf-297253:17 URINE DAR CULTURE-NOREEN COL Comments: PATIENT NOT FASTINGPERFORMED BY: [facility] Qusjss2230 [facility] [id number] Information: SRC: URINE COUNT (56302) Result 1 NG36 (Normal) Comments: No growth in 36 - 48 hours. Urine Culture,Comprehensive Final report (Normal) 61-Ite-339064:48 Urinalysis, Office (58707) UA - LEUKOCYTE ESTERASE Negative (Normal) UA - NITRITE Negative (Normal) URINE UROBILINGN NOREEN TIMED Normal mg/dL (Normal) UA - PROTEIN Negative mg/dL (Normal) UA - PH 6.0 (Normal) Comments: 5.5 UA - BLOOD Negative (Normal) UA - SPECIFIC GRAVITY 1.010 (Normal) UA - KETONES Negative mg/dL (Normal) UA - BILIRUBIN Negative (Normal) UA - GLUCOSE Negative (Normal) 36-Ppy-643611:31 Basic Metabolic Profile (BMP) Comments: Test performed at:[facility] [address]sp[address] [place], [place] [address] GAP 5 (Normal) Range: 5-15 CO2 27.0 mmol/L (Normal) Range: 21.0-32.0 CL 103 mmol/L (Normal) Range: 98-107 K 4.8 mmol/L (Normal) Range: 3.5-5.1 NA 135 mmol/L (Abnormal) Range: 136-145 CA 8.7 mg/dL (Normal) Range: 8.5-10.1 BUN/CRE 16.4 {RATIO} (Normal) Range: 10-20 CREAT,SERUM 1.1 mg/dL (Abnormal) Range: 0.6-1.0 BUN 18 mg/dL (Normal) Range: 7-18 GLU 89 mg/dL (Normal) Range: 70-110 92-Nkl-622200:31 Lipid Profile Comments: Test performed at:[facility] [address] [place] [address] VLDL 22 mg/dL (Normal) Range: [...] 200-240 mg/dL Borderline >240 mg/dL High Risk 08-Exg-930791:31 Liver Profile Comments: Test performed at:[facility] [address]fox[address] [place] [address] D BILI 0.10 mg/dL (Normal) Range: 0.00-0.30 T BILI 0.30 mg/dL (Normal) Range: 0.00-4.00 ALT 35 U/L (Normal) Range: 12-78 ALK P 85 U/L (Normal) Range: 50-136 AST 38 U/L (Abnormal) Range: 15-37 GLOB 3.6 g/dL (Normal) Range: 2.7-4.2 ALB 3.7 g/dL (Normal) Range: 3.4-5.0 T PROT 7.3 g/dL (Normal) Range: 6.4-8.2 84-Itp-635089:31 T4 Total, Thyroxin Comments: Test performed at:[facility] [address] [place] [address] T4 THYROXIN 14.9 ug/dL (Abnormal) Range: 4.8-13.9 :31 Thyroid Stim Hormone (TSH) Comments: Test performed at:[facility] [address] [place] [address] TSH 2.32 {uIU/mL} (Normal) Range: 0.358-3.74 :30 CBC W/Diff, Automated Comments: Test performed at:[facility] [address] [place] [address] Absolute Lymph 1.12 {X10_3/ul} (Normal) [...] 4.2-5.4 WBC 8.8 K/mm3 (Normal) Range: 4.4-11.0 22-Yup-156856:30 Urinalysis, Complete Comments: DR HUANG LIVER LIPID TSH T4 ONLYHow was Urine Obtained? CLEAN CATCHTest performed at:[facility] Z[address]16[address] [place] [address] HYALINE CAST 0-5 SEEN {/lpf} [...] CLARITY Sl. Cloudy (Normal) COLOR Yellow (Normal) 72-Abj-217680:09 CBC W/Diff, Automated Comments: Test performed at:[facility] G[address]4707 [place] [address] Absolute Lymph 0.85 {X10_3/ul} (Normal) [...] 4.2-5.4 WBC 8.7 K/mm3 (Normal) Range: 4.4-11.0 92-Urz-491081:09 Comprehensive Metabolic Profil Comments: 'TROP' Serial specimen #1, #2, #3, or #4: 1Test performed at:[facility] [address] [place], [place] [address] GAP 5 (Normal) Range: 5-15 CO2 27.0 [...] <126 mg/dLsuggests IMPAIRED HOMEOSTASIS per A.D.A. criteria. 91-Unz-625737:09 Troponin-I Comments: 'TROP' Serial specimen #1, #2, #3, or #4: 1Test performed at:[facility] [address] [place], [place] [address] TROPONIN-I < 0.02 ng/mL (Normal) Comments: TROPONIN-I EXPECTED VALUES <0.05 NEGATIVE 0.06 - 0.59 AT RISK OF VT > OR = 0.60 SUGGEST VT 85-Cjk-347671:21 Rapid Flu (76358 x 2) Influenza A Ag neg (Normal) 8-Yjx-421851:05 TSH 6.19 {uIU/mL} (Abnormal) Range: 0.358-3.74 18-Hlx-13710:54 CBCMD ANC 10.3 3/uL (Abnormal) Range: 2.0-7.7 [...] CHOL 151 mg/dL (Normal) Comments: <200 mg/dL Nzredmqib563-500 mg/dL Borderline>240 mg/dL High Risk :54 TSH 0.72 {uIU/mL} (Normal) Range: 0.358-3.74 60-Jbv-653967:37 Rapid Strep Test, Office (26288) Comments: neg Rapid Strep Test, Office Negative (Normal) 85-Bdn-537823:03 DAR CULTURE-OTHER (44747) Comments: PATIENT NOT FASTINGPERFORMED BY: [facility] CenterZguqwk2573 [facility] [id number] Information: SRC:THRT [id number] Result 1 RRF (Normal) Comments: Routine respiratory julia Upper Respiratory Culture Final report (Normal) 68-Yju-122842:12 Urinalysis, Office (37507) UA - BILIRUBIN Negative (Normal) UA - BLOOD Hemolyzed Trace (Normal) UA - GLUCOSE Negative (Normal) UA - KETONES Negative mg/dL (Normal) UA - LEUKOCYTE ESTERASE Trace (Normal) UA - NITRITE Negative (Normal) UA - PH 6.0 (Normal) UA - PROTEIN Negative mg/dL (Normal) UA - SPECIFIC GRAVITY 1.010 (Normal) URINE UROBILINGN NOREEN TIMED 2 mg/dL (Normal) 85-Jjo-073576:53 DEXA BONE DENSITY STUDY (HP) Radiology Report [...] Fink M.D.July 29, 2012 at 2:05:06 PM [id number] Signed GP/GP If you are the referring physician and would like to consult with theradiologist who provided this interpretation, please contact Aleida Osei at [phone]. If this radiologist is unavailable, youwil l be directed to another radiologist to assist. If you are a patient with a question regarding this report, pleasecontactyour referring physician directly. Professional Interpretation Provided By: [employer] karina, Phone , These documents contain legally [...] 07/29/12 1410 Sign by: Ed Fink MD 27-Pbx-831103:37 BILAT SCRN DIGITAL & CAD Radiology Report [...] Fink M.D.July 14, 2012 at 1:35:04 PM [id number] Signed GP/GP If you are the referring physician and would like to consult with theradiologist who provided this interpretation, please contact Aleida Osei at [phone]. If this radiologist is unavailable, youwill be directed to another radiologist to assist. If you are a patient with a questi on regarding this report, pleasecontactyour referring physician directly. Professional Interpretation Provided By: [employer], Phone , These documents contain legally prot [...] mg/dL Comments: Order Date: 02/06/12OV Order #: [id number] ID: [id number] Comments: DX = 272.4 JLS [...] 12 hours, may have water.OV Order #: [id number] Order #: [id number] Comments: Reason:Interface Comments: DX = 427.31 [facility] 02/07/12OV Order #: [id number] Comments: DX = 428.0 [facility] 02/07/12 Range: 0.00-0.30 93-Fjy-131602:57 CMP Comments: Order Date: 02/06/12OV Order #: [id number] ID: [id number] Comments: DX = 272.4 [facility] 02/07/12Diagnosis: V58.69 - LONG-TERM USE OF [...] 12 hours, may have water.OV Order #: [id number] Order #: [id number] Comments: Reason:Interface Comments: DX = 427.31 [facility] 02/07/12OV Order #: [id number] Comments: DX = 428.0 [facility] 02/07/12 GAP 6 (Normal) Range: 5-15 [...] 7-18 GLU 92 mg/dL (Normal) Range: 70-110 25-Dgk-168075:57 LIPID Comments: Order Date: 02/06/12OV Order #: [id number] ID: [id number] Comments: DX = 272.4 [facility] 02/07/12Diagnosis: V58.69 - LONG-TERM USE OF [...] 12 hours, may have water.OV Order #: [id number] Order #: [id number] Comments: Reason:Interface Comments: DX = 427.31 [facility] 02/07/12OV Order #: [id number] Comments: DX = 428.0 [facility] 02/07/12 VLDL 13 mg/dL (Normal) Range: [...] (Normal) Comments: Order Date: 02/06/12OV Order #: [id number] ID: [id number] Comments: DX = 272.4 JLS [...] 12 hours, may have water.OV Order #: [id number] Order #: [id number] Comments: Reason:Interface Comments: DX = 427.31 [facility] 02/07/12OV Order #: [id number] Comments: DX = 428.0 [facility] 02/07/12 Range: 2.5-4.9 06-Uli-118803:57 T4 12.6 ug/dL (Normal) Comments: Order Date: 02/06/12OV Order #: [id number] ID: [id number] Comments: DX = 272.4 JLS [...] 12 hours, may have water.OV Order #: [id number] Order #: [id number] Comments: Reason:Interface Comments: DX = 427.31 [facility] 02/07/12OV Order #: [id number] Comments: DX = 428.0 [facility] 02/07/12 Range: 4.8-13.9 16-Tug-052622:57 T4F 1.76 ng/dL (Abnormal) Comments: Order Date: 02/06/12OV Order #: [id number] ID: [id number] Comments: DX = 272.4 [facility] 02/07/12Diagnosis: V58.69 - LONG-TERM USE OF [...] 12 hours, may have water.OV Order #: [id number] Order #: [id number] Comments: Reason:Interface Comments: DX = 427.31 [facility] 02/07/12OV Order #: [id number] Comments: DX = 428.0 [facility] 02/07/12 Range: 0.76-1.46 61-Ikc-937287:57 TSH 2.47 {uIU/mL} (Normal) Comments: Order Date: 02/06/12OV Order #: [id number] ID: [id number] Comments: DX = 272.4 [facility] 02/07/12Diagnosis: V58.69 - LONG-TERM USE OF [...] 12 hours, may have water.OV Order #: [id number] Order #: [id number] Comments: Reason:Interface Comments: DX = 427.31 [facility] 02/07/12OV Order #: [id number] Comments: DX = 428.0 [facility] 02/07/12 Range: 0.358-3.74 46-Bhp-182888:47 CBCD Comments: DR. VERGARA ORDERED CMP, RENAL, [...] 4.2-5.4 WBC 6.7 K/mm3 (Normal) Range: 4.4-11.0 7-Tbi-647898:21 CBCD ANC 5.1 3/uL (Normal) Range: 2.0-7.7 [...] 4.2-5.4 WBC 7.8 K/mm3 (Normal) Range: 4.4-11.0 3-Plp-145273:21 LIPID Comments: ORDERED TSH LIPID T4DR.BONEALIA ORDERED [...] VALVE PROLAPSEDiagnosis: 272.4 - HYPERLIPIDEMIAOV Order #: [id number] ID: [id number] Order #: [id number] Comments: Reason:OV Order #: [id number] VLDL 10 mg/dL (Normal) Range: 5-40 LDL [...] 200-240 mg/dL Borderline >240 mg/dL High Risk 0-Ape-282266:21 RENAL Comments: ORDERED TSH LIPID T4DR.CLARY ORDERED [...] VALVE PROLAPSEDiagnosis: 272.4 - HYPERLIPIDEMIAOV Order #: [id number] ID: [id number] Order #: [id number] Comments: Reason:OV Order #: [id number] CO2 26.0 mmol/L (Normal) Range: 21.0-32.0 CL [...] 7-18 GLU 87 mg/dL (Normal) Range: 70-110 9-Yva-078549:21 T4 15.1 ug/dL (Abnormal) Comments: ORDERED TSH [...] VALVE PROLAPSEDiagnosis: 272.4 - HYPERLIPIDEMIAOV Order #: [id number] ID: [id number] Order #: [id number] Comments: Reason:OV Order #: [id number] Range: 4.8-13.9 1-Kap-092098:21 TSH 1.69 {uIU/mL} (Normal) Comments: ORDERED TSH [...] VALVE PROLAPSEDiagnosis: 272.4 - HYPERLIPIDEMIAOV Order #: [id number] ID: [id number] Order #: [id number] Comments: Reason:OV Order #: [id number] Range: 0.358-3.74 33-Rda-74524:57 BMP GAP 7 (Normal) Range: 5-15 CO2 [...] :57 TSH 2.61 {uIU/mL} (Normal) Range: 0.358-3.74 98-Txr-675486:38 URINE DAR CULTURE-NOREEN COL Comments: PATIENT NOT FASTINGPERFORMED BY: [facility] CenterQbtozt7739 [facility] [id number] Information: SRC: URINE COUNT (95215) Result 1 NG36 (Normal) Comments: No growth in 36 - 48 hours. Urine Culture,Comprehensive Final report (Normal) :42 Urinalysis, Office (50449) UA - BILIRUBIN Negative (Normal) UA - BLOOD Non Hemolyzed Trace (Normal) UA - GLUCOSE Negative (Normal) UA - KETONES Negative mg/dL (Normal) UA - LEUKOCYTE ESTERASE Trace (Abnormal) UA - NITRITE Negative (Normal) UA - PH 5.0 (Normal) UA - PROTEIN Negative mg/dL (Normal) UA - SPECIFIC GRAVITY 1.005 (Normal) URINE UROBILINGN NOREEN TIMED Normal mg/dL (Normal) 05-Fab-900540:03 Urinalysis, Office (68749) UA - BILIRUBIN Negative (Normal) UA - BLOOD Hemolyzed Trace (Normal) UA - GLUCOSE Negative (Normal) UA - KETONES Negative mg/dL (Normal) UA - LEUKOCYTE ESTERASE Trace (Normal) UA - NITRITE Negative (Normal) UA - PH 5.0 (Normal) UA - PROTEIN Negative mg/dL (Normal) UA - SPECIFIC GRAVITY 1.010 (Normal) URINE UROBILINGN NOREEN TIMED Normal mg/dL (Normal) 3-Oqn-270420:00 BMP Comments: JANET ORDERED BMP MG T4 [...] 7-18 GLU 88 mg/dL (Normal) Range: 70-110 6-Qls-272579:00 LIPID Comments: JANET ORDERED BMP MG T4 [...] 200-240 mg/dL Borderline >240 mg/dL High Risk 7-Ojz-356200:00 LIVER Comments: JANET ORDERED BMP MG T4 TSH LIVER LIPIDBONEZZI ORDERED BMP TSH T4F D BILI 0.11 mg/dL (Normal) Range: 0.00-0.30 T BILI 0.40 mg/dL (Normal) Range: 0.00-1.00 ALT 26 U/L (Normal) Range: 12-78 ALK P 70 U/L (Normal) Range: 50-136 AST 23 U/L (Normal) Range: 15-37 ALB 4.1 g/dL (Normal) Range: 3.4-5.0 T PROT 8.0 g/dL (Normal) Range: 6.4-8.2 0-Gsq-766586:00 MG 2.0 mg/dL (Normal) Comments: JANET ORDERED BMP MG T4 TSH LIVER LIPIDBONEZZI ORDERED BMP TSH T4F Range: 1.5-2.2 2-Sas-376980:00 T4 FREE DIRECT 1.69 ng/dL (Abnormal) Comments: JANET ORDERED BMP MG T4 TSH LIVER LIPIDBONEZZI ORDERED BMP TSH T4F Range: 0.76-1.46 5-Ban-248461:00 T4 THYROXIN 14.3 ug/dL (Abnormal) Comments: JANET ORDERED BMP MG T4 TSH LIVER LIPIDBONEZZI ORDERED BMP TSH T4F Range: 4.8-13.9 6-Igb-843247:00 TSH 2.00 {uIU/mL} (Normal) Comments: JANET ORDERED BMP MG T4 TSH LIVER LIPIDBONEZZI ORDERED BMP TSH T4F Range: 0.358-3.74 0-Wnw-039781:46 Anaerobic and Aerobic Comments: PERFORMED BY: [facility]6370 [facility] [id number] Information: SRC:EB RIGHT ELBOW Culture Result 1 NG36 (Normal) Comments: No growth in 36 - 48 hours. Aerobic Culture Final report (Normal) Result 1 [id number] (Normal) Comments: No aerobic or anaerobic growth in 72 hours. Anaerobic Culture Final report (Normal) 2-Vxv-[id number]:39 Urinalysis, Office ([id number]) UA - BILIRUBIN Negative (Normal) UA - BLOOD Negative (Normal) UA - GLUCOSE Negative (Normal) UA - KETONES Negative mg/dL (Normal) UA - LEUKOCYTE ESTERASE Negative (Normal) UA - NITRITE Negative (Normal) UA - PH 5.0 (Normal) UA - PROTEIN Negative mg/dL (Normal) UA - SPECIFIC GRAVITY 1.015 (Normal) URINE UROBILINGN NOREEN TIMED 2 mg/dL (Normal) 60-Gey-50569:00 L/S SPINE,MIN 4 VIEWS Radiology Report See [...] (Abnormal) Range: 0-34 Comments: Performed at: - [facility] [id number] Director: Bella Taylor MD, Phone: [phone] T3 TOTAL 0.8 ng/mL (Normal) Comments: ORDERED [...] TPO T3F T4F 2:06 (Abnormal) Range: 0.358-3.74 94-Obb-899669:13 BMP GAP 12 (Normal) Range: 5-15 CO2 [...] 7-18 GLU 95 mg/dL (Normal) Range: 70-110 51-Rvu-308542:13 CBCD ABSOLUTE NEUT 5.1 3/uL (Normal) Range: [...] 4.2-5.4 WBC 7.1 K/mm3 (Normal) Range: 4.4-11.0 33-Vpp-974935:34 Vaginitis/Vaginosis, DNA Probe Comments: [facility]FOR[facility] BY: [facility] [id number] Information: SRC:CE Gardnerella vaginalis Negative (Normal) Trichomonas [...] Visit for suture removal Concussion : Reviewed Electrical Development Engineer Letter Indication: Concussion Fall, accidental : Reviewed Electrical Development Engineer Letter Indication: Fall, accidental Fall, accidental : [...] Cerumen impaction : Follow up in with [facility] for ear irrigation Indication: Cerumen impaction [...] tract infection, unspecified type Planned Observations TSH ([id number])Indication: Memory impairment On: [id number]-Ltr-804059:11 Request AMMONIA ([id number])Indication: Memory impairment On: 93-Fdb-102387:11 Request Methymalonic Acid, Serum (69799)Indication: Memory impairment On: 40-Jum-653070:11 Request VITAMIN B-12 (CYANOCOBALAMIN) ([id number])Indication: Memory impairment On: 24-Ans-608959:11 Request FOLIC ACID SERUM (71641)Indication: Memory impairment On: 47-Wkr-117360:11 Request METABOLIC PANEL, COMPREHENSIVE ([id number])Indication: Coronary artery disease On: 01-Jdz-252152:02 Request Comments: fax copy to SHAWN Bonilla, BY NMR ([id number])Indication: Coronary artery disease On: 66-Ccs-605686:02 Request CALCIFIDIOL (30537) VIT D 25Indication: Vitamin D deficiency On: 50-Ntd-286791:02 Request Metabolic Panel, Comprehensive ([id number])Indication: Hypokalemia On: 12-Nov-2017 Request Comments: fax a copy to Dr. Caitlin May [phone] Huang [phone] MAGNESIUM ([id number])Indication: Hypokalemia On: 0-Xyk-090078:03 Request Metabolic Panel, Comprehensive ([id number])Indication: Hypokalemia On: 2-Jpb-834455:02 Request Comments: fax a copy to Dr. Caitlin May [phone] Huang [phone] Metabolic Panel, Comprehensive ([id number])Indication: Hypokalemia On: 05-Nov-2017 Request Comments: fax a copy to Dr. Caitlin [phone] Huang [phone] Metabolic Panel, Comprehensive ([id number])Indication: Hypokalemia On: 29-Oct-2017 Request Comments: fax a copy to Dr. Caitlin [phone] Huang [phone] Metabolic Panel, Comprehensive (36761)Indication: Hypokalemia On: 22-Oct-2017 Request Comments: fax a copy to Dr. Caitlin [phone] Huang [phone] Metabolic Panel, Comprehensive ([id number])Indication: Hypokalemia On: 15-Oct-2017 Request Comments: fax a copy to Dr. Tucker [phone] Huang [phone] Metabolic Panel, Comprehensive ([id number])Indication: Hypokalemia On: 08-Oct-2017 Request Comments: fax a copy to Dr. Caitlin May [phone] Huang [phone] Metabolic Panel, Comprehensive ([id number])Indication: Hypokalemia On: 01-Oct-2017 Request Comments: fax a copy to Dr. Caitlin May [phone] Huang [phone] Metabolic Panel, Comprehensive ([id number])Indication: Hypokalemia On: 24-Sep-2017 Request Comments: fax a copy to Dr. Caitlin May [phone] Huang [phone] Renal function Panel ([id number])Indication: Renal insufficiency (Renamed from Renal function impairment) On: 72-Jlu-587894:23 Request URIC ACID BLOOD (97641)Indication: Abnormal laboratory test On: 90-Zbz-622063:53 Request Metabolic Panel, Comprehensive (06861)Indication: Hypokalemia On: 17-Sep-2017 Request Comments: fax a copy to Dr. Caitlin May [phone] Huang [phone] Metabolic Panel, Comprehensive ([id number])Indication: Hypokalemia On: 10-Sep-2017 Request Comments: fax a copy to Dr. Caitlin May [phone] Huang [phone] Metabolic Panel, Basic (03529)Indication: Cardiomyopathy On: 10-Keu-712973:02 Request Comments: now stat and prn CREATININE BLOOD ([id number])Indication: Left leg swelling On: 30-Yye-711843:05 Request Metabolic Panel, Basic (78773)Indication: Renal insufficiency (Renamed from Renal function impairment) On: 52-Tya-720543:16 Request Comments: re check in 4 weeks T4, FREE (THYROXINE) ([id number])Indication: Hypothyroidism On: 53-Rqf-714563:49 Request CALCIFIDIOL (39455) VIT D 25Indication: Vitamin D deficiency On: 38-Vno-678586:47 Request TSH (THYROID STIMULATING HORMONE) (78366)Indication: Hypothyroidism On: 34-Bnx-221276:46 Request CREATININE BLOOD (56822)Indication: Abdominal pain, acute On: 11-Tcg-036810:34 Request Metabolic Panel, Basic (58116)Indication: Abdominal pain, acute On: 82-Ckv-61654:31 Request T4, FREE (THYROXINE) ([id number])Indication: Hypothyroidism On: :30 Request TSH ([id number])Indication: Hypothyroidism On: :30 Request METABOLIC PANEL, COMPREHENSIVE ([id number])Indication: DVT, bilateral lower limbs On: 35-Pth-038560:48 Request PTT (Activated Partial Thromboplastin Time) ([id number])Indication: DVT, bilateral lower limbs On: :29 Request PT (Prothrobim Time) ([id number])Indication: DVT, bilateral lower limbs On: 13-Zzi-386589:29 Request Factor 2 (Prothrombin) Gene Mutation (97403)Indication: DVT, bilateral lower limbs On: :29 Request Factor V Leiden (19930)Indication: DVT, bilateral lower limbs On: :28 Request Antiphospholipid atb (40728)Indication: DVT, bilateral lower limbs On: :28 Request CBC, Platelets & Auto Diff (57304)Indication: Abdominal pain, acute On: 11-Dbf-57187:38 Request Comments: coipy to Dr. jessie armendariz stat HEPATIC FUNCTION PANEL (40146)Indication: Abdominal pain, acute On: :37 Request Comments: to stat copy to Dr. natalie armendariz Metabolic Panel, Comprehensive ([id number])Indication: Abdominal pain, acute On: :23 Request Comments: all STAT Sed Rate Erythrocyte (55035)Indication: Abdominal pain, acute On: 80-Awe-02930:19 Request CBC, Platelets & Auto Diff (57298)Indication: Abdominal pain, acute On: :19 Request Ferritin (99951)Indication: Abnormal RBC indices On: :08 Request CALCIFEDIOL (60091)Indication: Vitamin D deficiency On: :02 Request Folic Acid Serum (21739)Indication: Memory impairment On: :35 Request Methymalonic Acid, Serum (15077)Indication: Memory impairment On: :35 Request Vitamin B-12 (cyanocobalamin) (39645)Indication: Memory impairment On: :35 Request Metabolic Panel, Basic (17762)Indication: Cardiomyopathy in other diseases classified elsewhere On: :43 Request Urinalysis, Office (41425)Indication: Abdominal pain, acute On: 38-Cve-286526:47 Request URINE DAR CULTURE-IDENTIFICATN (22099)Indication: Abdominal pain, acute On: 48-Dom-384527:20 Request TSH ([id number])Indication: Hypothyroidism On: 28-Upt-152177:50 Request Comments: 8 weeks TSH (93593)Indication: Hypothyroidism On: :58 Request URINALYSIS, W/ MICRO ([id number])Indication: Coronary artery disease On: :57 Request METABOLIC PANEL, COMPREHENSIVE (12134)Indication: Coronary artery disease On: :57 Request LIPID PANEL ([id number])Indication: Coronary artery disease On: :57 Request CBC with auto diff ([id number])Indication: Coronary artery disease On: :57 Request C-REACTIVE PROTEIN ([id number])Indication: Abdominal pain, acute, generalized On: 61-Zlg-608943:31 Request Comments: stat CBC W/AUTO DIFF WBC (88901)Indication: Abdominal pain, acute, generalized On: :31 Request Comments: stat METABOLIC PANEL, COMPREHENSIVE ([id number])Indication: Abdominal pain, acute, generalized On: :31 Request Comments: stat SED RATE ERYTHROCYTE ([id number])Indication: Abdominal pain, acute, generalized On: 71-Zyy-462875:26 Request CBC with auto diff ([id number])Indication: Cardiomyopathy On: :59 Request Comments: copy to Dr. valerio URINALYSIS, W/ MICRO ([id number])Indication: Cardiomyopathy On: :58 Request METABOLIC PANEL, COMPREHENSIVE ([id number])Indication: Cardiomyopathy On: :58 Request LIPID PANEL ([id number])Indication: Cardiomyopathy On: :58 Request TSH ([id number])Indication: Hypothyroidism On: :58 Request CBC W/AUTO DIFF WBC (45870)Indication: Coronary artery disease On: :08 Request Comments: copy to cardiology TSH ([id number])Indication: Hypothyroidism On: :08 Request URINALYSIS, W/ MICRO ([id number])Indication: Coronary artery disease On: :08 Request METABOLIC PANEL, COMPREHENSIVE ([id number])Indication: Coronary artery disease On: :08 Request LIPID PANEL ([id number])Indication: Coronary artery disease On: :08 Request METABOLIC PANEL, COMPREHENSIVE (27339)Indication: Coronary artery disease On: :15 Request Comments: 05-24 CBC WITH MANUAL DIFF ([id number])Indication: Coronary artery disease On: :15 Request Comments: 05-24 TSH ([id number])Indication: Hypothyroidism On: 56-Dwu-206589:13 Request TSH ([id number])Indication: Hypothyroidism On: 59-Lam-080644:18 Request CBC WITH MANUAL DIFF ([id number])Indication: Coronary artery disease On: 7-Rsq-339090:11 Request Comments: copy to [facility] URINALYSIS, W/ MICRO ([id number])Indication: Coronary artery disease On: 7-Svf-308944:11 Request METABOLIC PANEL, COMPREHENSIVE ([id number])Indication: Coronary artery disease On: 2-Kxs-486647:11 Request LIPID PANEL ([id number])Indication: Coronary artery disease On: 4-Kph-538898:11 Request TSH ([id number])Indication: Hypothyroidism On: 0-Wer-334839:11 Request TSH ([id number])Indication: Hypothyroidism On: 96-Fkz-209283:02 Request METABOLIC PANEL, COMPREHENSIVE ([id number])Indication: Cardiomyopathy On: 95-Cmm-507612:02 Request LIPID PANEL ([id number])Indication: Cardiomyopathy On: 51-Tvp-000557:02 Request CBC WITH MANUAL DIFF ([id number])Indication: Cardiomyopathy On: 13-Mpn-909247:02 Request TSH ([id number])Indication: Hypothyroidism On: :29 Request Renal function Panel ([id number])Indication: Renal insufficiency (Renamed from Renal function impairment) On: 59-Lfi-287879:29 Request CBC (Auto) ([id number])Indication: Cardiomyopathy On: :40 Request Metabolic Panel, Comprehensive ([id number])Indication: Cardiomyopathy On: :40 Request T4, FREE (THYROXINE) ([id number])Indication: Hypothyroidism On: 14-Fjp-710848:39 Request TSH ([id number])Indication: Hypothyroidism On: 65-Zwg-798181:39 Request TSH ([id number])Indication: Hypothyroidism On: 7-Vwk-193461:09 Request CBC (Auto) ([id number])Indication: Cardiomyopathy On: 2-Dwm-271840:08 Request Renal function Panel ([id number])Indication: Cardiomyopathy On: :08 Request Metabolic Panel, Basic (17743)Indication: Cardiomyopathy On: :03 Request T4, FREE (THYROXINE) ([id number])Indication: Hypothyroidism On: :03 Request TSH (75141)Indication: Hypothyroidism On: :03 Request Metabolic Panel, Basic (50020)Indication: Renal insufficiency (Renamed from Renal function impairment) On: 30-Mbo-129256:36 Request T4, FREE (THYROXINE) ([id number])Indication: Hypothyroidism On: :35 Request TSH ([id number])Indication: Hypothyroidism On: :35 Request DAR CULTURE-OTHER ([id number])Indication: Bursitis, olecranon On: 9-Ahf-232873:18 Request Comments: olecranon bursa Metabolic Panel, Basic ([id number])Indication: Hyperlipemia On: 67-Pwe-579693:09 Request Metabolic Panel, Basic ([id number])Indication: Gastroenteritis On: 73-Xfm-448005:56 Request Comments: stat CBC (Auto) ([id number])Indication: Gastroenteritis On: 62-Cpt-401857:56 Request Metabolic Panel, Basic ([id number])Indication: Cardiomyopathy On: :53 Request TSH ([id number])Indication: PVT (paroxysmal ventricular tachycardia) On: 17-Wud-906584:53 Request URINALYSIS ([id number])Indication: Cardiomyopathy On: :53 Request CBC (Auto) ([id number])Indication: Cardiomyopathy On: 80-Hux-855799:53 Request INFCT ANTGN TRICH VAGIN DIRECT PRB ([id number])Indication: Vaginal discharge On: 47-Mwm-510197:31 Request GARDNERELLA VAG, NUCLEIC ACID DIR PROBE ([id number])Indication: Vaginal discharge On: :31 Request ILEANA, NUCLEIC ACID DIRECT PROBE ([id number])Indication: Vaginal discharge On: 69-Uih-893131:31 Request Planned Encounters Medical; [facility] 2 Month FU - On: 06-Jul-2018 10:15 [facility] Clary TIRADO, Minerva Oseguera MD Planned Procedures Flu Vaccine (Quadrivalent) On: 01-Jun-2018 Intent 56931Uw: Visit, Nurse Comments: Lot #[id number]-L dltd, IMDose prefilled syringegiven by:SORAIDA Calloway reviewed and ABN signed Aerosol Treatment (29916)By: On: 08-Jan-2018 Intent Clary TIRADO, Minerva Oseguera MD SCREENING DIGITAL On: 23-Sep-2017 Intent TOMOSYNTHESIS OF BREAST (58239)By: Minerva Vergara MD, MD, Dana M Venous Doppler - LowerBy: On: 23-Sep-2017 Intent Minerva Vergara MD Comments: lower left extremity follow up on DVT from 07-27 due october Minerva TIRADO CTA ABDOMEN AND PELVIS On: 28-Jul-2017 Intent INCLUDING IMAGE POSTPROCESSING ([id number])By: Clary TIRADO, Minerva Oseguera MD VENOUS DOPPLER LOWER On: 28-Jul-2017 Intent EXTREMITY (84098)By: Clary Comments: upper and lower left legcall results to [phone] Minerva TIRADO MD, Dana M Radiology - [...] FLAT PLATE AND On: 04-Dec-2016 Intent ERECT ([id number])By: Ida Quiñonez DO CT - Chest (IV Contrast On: 04-Dec-2016 Intent Needed)By: Ida Quiñonez DO Comments: pe protocol today CT - Abdomen (Without On: 25-Nov-2016 Intent Contrast)By: Minerva Vergara MD, MD, Dana M Spirometry (10472)By: On: 31-Oct-2016 Intent Minerva Vergara MD Comments: see scanned document of test done to see results reviewed today with patient Minerva TIRADO Radiology - ChestBy: Clary On: 31-Oct-2016 Intent Minerva TIRADO MD, Dana M Comments: call wet read Radiology - KUBBy: Clary On: 31-Oct-2016 Intent Minerva TIRADO MD, Dana M Comments: upright. call wet read to [phone] Bone Density StudyBy: Clary On: 29-Jul-2016 Intent Minerva TIRADO MD, Dana M MAMMOGRAM, BILATERAL On: 29-Jul-2016 Intent (38648)By: Minerva Vergara MD, MD, Dana M Flu Vaccine (Quadrivalent) On: 09-May-2016 Intent [id number]: Slarb FLASH WELDING MACHINE OPERATOR, Meka ELECTROCARDIOGRAM, COMPLETE On: 09-Aug-2015 Intent (ECG) (34217)By: Memo Armendariz CNP Radiology - ChestBy: Clary On: 17-Jul-2015 Intent Minerva TIRADO MD, Dana M Aerosol Treatment (23480)By: On: 14-Jul-2015 Intent Minerva Vergara MD, MD, Dana M Aerosol Treatment ([id number])By: On: 29-May-2015 Intent Slarb FLASH WELDING MACHINE OPERATOR, Meka ADMINISTRATION OF INFLUENZA On: 25-Apr-2015 Intent VIRUS VACCINE (G0008)By: Minerva Vergara MD, MD, Dana M Flu Vaccine (Quadrivalent) On: 25-Apr-2015 Intent 93153Di: Minerva Vergara MD Comments: lot: [id number]: 01/07/16site/route: L del/IMamt: 0.5mLVIS signed when applicableИВАН Rodriguez MD, Dana M ACUTE ABDOMINAL SERIES On: 27-Mar-2015 Intent (65302)By: Ida Quiñonez DO Comments: stat call wet read INFUSION, NORMAL SALINE On: 04-Nov-2014 Intent SOLUTION , 1000 CC (Special Comments: only 500 ccIV Therapy [id number], 1 inchSite: r acTolerated: well, x 2nd attempt. L ac infiltrated and rpessure applied then covered with gauze and bandageno redness or swelling, no s/s infiltrationMegan, FLASH WELDING MACHINE OPERATOR Coverage Instructions Apply. See MCM: 9) (J7030)By: Minerva Vergara MD, MD, Dana M Radiology - KUBBy: Clary On: 04-Nov-2014 Minerva Wright MD, MD, Dana M Comments: do today and call over wet read Radiology - Shoulder - On: 04-Nov-2014 Intent RightBy: Minerva Vergara MD, MD, Dana M Wax CurettesBy: Clary TIRADO, On: 15-Sep-2014 Intent Minerva Oseguera MD Ear Irrigation (25121)By: On: 15-Sep-2014 Intent Minerva Vergara MD, MD, Dana M Radiology - Shoulder - On: 15-Sep-2014 Intent RightBy: Minerva Vergara MD, MD, Dana M Radiology - ChestBy: Clary On: 15-Sep-2014 Intent Minerva TIRADO MD, Dana M Comments: by next week if not better with atb Aerosol Treatment (73142)By: On: 01-Sep-2014 Intent Memo Armendariz CNP DEXA SCAN AXIAL SKELETON On: 18-Feb-2014 Intent (61580)By: Minerva Vergara MD, MD, Dana M MAMMOGRAM, SCREENING, BOTH On: 18-Feb-2014 Intent BREAST (72449)By: Minerva Vergara MD, MD, Dana M INFUSION, NORMAL SALINE On: 29-Oct-2013 Intent SOLUTION , 250 CC (Special Coverage Instructions Apply. See MCM: 2049) (J7050)By: Tiera Carmen DO IV Needle placement On: 29-Oct-2013 Intent (45034)By: Kermit WEBER, Comments: 3rd attempt successful in R RJ Wagner Tiera IV Infusion (64800)By: Kermit On: 29-Oct-2013 Tiera Wright DO Eprescribed prescriptions On: 29-Oct-2013 Intent (G8553)By: Tiera Carmen DO Aerosol Treatment (23880)By: On: 29-Oct-2013 Intent Tiera Carmen DO Solu- Medrol Injection, 125mg On: 29-Oct-2013 Intent (J2930)By: Kermit WEBER, Comments: lot: [id number]: 12/23site/route: RGM/IMamt:2mLVIS signed when applicableChelsИВАН gutiérrez Tiera Eprescribed prescriptions On: 26-Oct-2013 Intent (G8553)By: Clary TIRADO, Minerva Oseguera MD Wax CurettesBy: Ciglenysa FIRE EXTINGUISHER TESTER, On: 22-Oct-2013 Intent Saba Ear Irrigation (44948)By: On: 22-Oct-2013 Intent Ciesa FIRE EXTINGUISHER TESTER, Saba Eprescribed prescriptions On: 25-Jun-2013 Intent (G8553)By: Jeanne Gil LPN Wax CurettesBy: Clary TIRADO, On: 18-Jun-2013 Intent Minerva Vergara MD, Minerva Painting Ear Irrigation (89796)By: On: 18-Jun-2013 Intent Clary TIRADO, Minerva Vergara MD, Minerva Painting Eprescribed prescriptions On: 18-Jun-2013 Intent (G8553)By: Jeanne Gil LPN MAMMOGRAM, SCREENING, BOTH On: 16-Mar-2013 Intent BREASTS (10220)By: Clary Comments: 06-23 maddi TIRADO, Minerva Vergara MD, Minerva Painting Wax CurettesBy: Clary TIRADO, On: 16-Mar-2013 Intent Minerva Vergara MD, Minerva Painting Ear Irrigation (15023)By: On: 16-Mar-2013 Intent Minerva Vergara MD, MD, Dana M Inhaler Demonstration On: 15-Feb-2013 Intent (03620)By: Memo Armendariz CNP Aerosol Treatment (82256)By: On: 15-Feb-2013 Intent Memo Armendariz CNP Eprescribed prescriptions On: 08-Dec-2012 Intent (G8553)By: Jeanne Gil LPN Aerosol Treatment (03360)By: On: 03-Dec-2012 Intent Minerva Vergara MD, MD, Dana M Pulse Oximetry (63779)By: On: 03-Dec-2012 Intent ARON Lawrence Wax CurettesBy: Kala HAZEL, On: 25-Nov-2012 Intent Memo Weeks Ear Irrigation (12913)By: On: 25-Nov-2012 Intent Memo Armendariz CNP SPECIMEN HNDLNG/TRNSPRT, OFFC On: 25-Nov-2012 Intent > LAB (80020)By: Nova Posadas LPN Breast Screening - On: 28-Apr-2012 Intent BilateralBy: Minerva Vergara MD, MD, Dana M Bone Density StudyBy: Clary On: 28-Apr-2012 Intent Minerva TIRADO MD, Dana M Aerosol Treatment (63141)By: On: 28-Apr-2012 Intent Minerva Vergara MD, MD, Dana M TDAP VACCINE >7 IM (88495)By: On: 06-Feb-2012 Intent Sneha Vasquez doppler/ultrasound - right On: 20-Jan-2012 Intent calfBy: Minerva Vergara MD Comments: attention subcutaneous mass, history of clots Minerva Vergara MD Ear Irrigation (21651)By: On: 11-Oct-2011 Intent Minerva Vergara MD Comments: med amt of wax removed from the left ear. small amt of wax removed from the right ear. pt tolerated well. Minerva TIRADO Wax CurettesBy: Clary TIRADO, On: 11-Oct-2011 Intent Minerva Oseguera MD Aerosol Treatment (87614)By: On: 08-Oct-2011 Intent Memo Armendariz CNP Aerosol Treatment (97854)By: On: 04-Oct-2011 Intent Memo Armendariz CNP EKG (58959)By: Clary TIRADO, On: 15-Aug-2011 Intent Minerva Oseguera MD Comments: see scanned document. Nerve ConductionBy: Clary On: 29-Jul-2011 Intent Minerva TIRADO MD, Dana M Comments: lower leg EMGBy: Minerva Vergara MD On: 29-Jul-2011 Intent Minerva Vergara MD Solu -Medrol Injection, 125 On: 16-Apr-2011 Intent mg (J2930)By: Kala HAZEL, Comments: Lot:[id number]:sep 11 2013Amt:125mgRoute:IMSite:right hip Given By: RJ Soriano Memo Weeks THER/PROPH/DIAG IV INF, INIT On: 15-Feb-2011 Intent (76383)By: Minerva Vergara MD, MD, Dana M Rocephin Injection, 2 Gram On: 15-Feb-2011 Intent (J0696)By: Minerva Vergara MD, MD, Dana M Kenalog Injection, 10 mgm On: 25-Dec-2010 Intent (J3301)By: Minerav Vergara MD, MD, Dana M Kenalog Injection, 10 mgm On: 25-Dec-2010 Intent (J3301)By: Minerva Vergara MD, MD, Dana M Kenalog Injection, 10 mgm On: 25-Dec-2010 Intent (J3301)By: Minerva Vergara MD, MD, Dana M Kenalog Injection, 10 mgm On: 25-Dec-2010 Intent (J3301)By: Minerva Vergara MD, MD, Dana M Radiology - ChestBy: Clary On: 03-Sep-2010 Intent Minerva TIARDO MD, Dana M Pulse Oximetry (09793)By: On: 03-Sep-2010 Intent ARON Lawrence Radiology - Lumbar SpineBy: On: 29-Aug-2010 Intent Ida Quiñonez DO Comments: call wet read Venous Doppler - LeftBy: On: 23-Jul-2010 Intent Minerva Vergara MD Comments: leg. send copy Dr. Thompson in [place] orthosMinerva lovett MD HYDRATION IV INFUSION, INIT On: 28-Jun-2010 Intent (40885)By: Minerva Vergara MD Comments: only gave 500 cc of LR with CMP historyLot #:[id number] date:mount given:500ml Route: IVSite given:left wrist Given by: [employer] Butterfly needle placed to left wrist with [...] The patient does have durable power of civil rights attorney and living will. The patient has noticed nothing from the geriatic depression scale. Other providers contributing to the patient's care are heart coordinator and other: (Dr. Tucker Endocrine). Encounter Diagnosis: [...] cancer screening up to date- drove to [place] few weeks ago- no family hx of [...] The patient does have durable power of civil rights attorney and living will. The patient has noticed having problems with memory than others and lack of energy. Other providers contributing to the patient's care are heart coordinator (Reina) and other: (eye doctor - has [...] Nutrition: balanced diet and supplemental vitamins. The ut dical issues the patient is following up [...] [facility]: 19-Apr-2011 10:08 Implant Surgeon [place], [place] ) . There have been no [...]
--- OUTSIDE RECORDS SUMMARY | 2018-09-02 18:05 | XMS RPT_ITS | Continuity of Care Document ---
:1940 Author Organization [facility] Address [facility] 2 [place] [address] Phone Care Team Providers Name Role Phone [...] left leg wtih DVT or overall fluid [id number] 20% Status: Active Constipation (K59.00, 564.00) Comments: [...] on neurotin and help some. Dr at [facility] not want to do surgery. using accupuncture [...] {Tablet} Refills: 3 Ordered:24-Oct-2017 Clary TIRADO, Minerva rAellano MD Start : 24-Oct-2017 Active ASPIRIN, 81MG [...] Puff(s) daily for 30 days Quantity: 1 {Augusta} Refills: 5 Ordered:22-Jan-2018 Khang DO, Ida A [...] for 10 days Refills: 0 Ordered:26-Oct-2013 Long COMMUNICATIONS ADVISORJeanne Start : 22-Oct-2013 End : 01-Nov-2013 Inactive [...] days Quantity: 30 {Tablet} Refills: 0 Ordered:14-Jul-2015 AORN Lawrence Start : 11-Apr-2015 End : 14-Jul-2015 [...] prn (5 MG) End : 14-Jun-2015 Discontinued Comments:[facility] DOXYCYCLINE HYCLATE, 100MG (Oral Tablet) [...] Vaginal Cream 1 (one) Cream twice weekly NH 1gm and small amount over urethra for [...] Hospital discharge follow-up (Z09, V67.59) Comments: pneumonia [facility] 03-31-17 to 04-02-17 Status: Resolved [...] Status: Inactive as of 04-Apr-2017 Vaccine for fmntdzehhh-etbkaac-slrdtbewj with poliomyelitis (Z23, V06.3) Status: Inactive as [...] Dates Details [facility] sx [facility] By[facility], Single Completed Comments: with Mitral valve replacement October 2009 fibrillator replaced -- April 2013 Completed -- [place] Hysterectomy, Total Completed partial bilateral knee replacement - Completed dr Magana STATUS, HEART VALVE REPLACEMENT NEC Completed (V43.3) Date Value Details 01-May-2018 Pacemaker Check Result: Comments: See Note; NOTES: [facility] [address] [place] [address] Pacemaker Check Date of Service: 05/01/18 1428 MR#: [id number] Acct: [id number] Name: IRIS ARRIAGA Rep #: [id number] : 1940 From: Kim Pickard Age/Sex: 78/F [place] [facility] Status: Signed Billing Codes ICD Device Billing: ICD Dev Prog Eval, Single 05/01/18 1430 <Elect ronically signed by Kim Pickard > Date Kim Pickard 05/01/18 1634<Electronically signed by Gurdeep Huang MD> Cosigner Sign ature: Date (if applicable) Gurdeep Huang MD CC: 18-Mar-2018 Pulmonary Visit Report Result: Comments: See Note; NOTES: [facility] [place] [address] [place] [address] OFFICE VISIT Date of Service: 03/18/18 MR#: [id number] Acct: [id number] Name: IRIS STRINGER CH Rep #: [id number] : 1940 Provider: Glenna Anderson Age/Sex: 78/F [place] [facility] Status: Signed Assessment AND Plan Problems 1. 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 Interrogation shows no VT/VF episodes [...] in office Interview Reason: routine follow up Topper Packer: Medtronic Name: Protecta VR Model: [id number] Serial #: [id number] Implant Date: 04/29/13 Year(s): 4 Implant Physician: Dr. Jose Murphy Patient Characteristics Atrial Indication: Paroxysmal atrial fibrillation Ventricular Indication: Nonsustained VT Patient Substrate: Nonischemic cardiomyopathy By: Echo Implant DFT: 18J Underlying rhythm: Sinus rhythm Pacemaker Dependent: No Device Characteristics Device: Single Chamber Type: Implantable defibrillator Remote Follow-Up: No Device Physical Exam Yes Incision well healed Leads Lead #1 Topper Packer Lead 1: Medtronic Model Lead 1: 5076 Serial# Lead 1: [id number] Date Implanted Lead 1: 09/03/04 Position Lead 1: RV Lead #2 Topper Packer Lead 2: Medtronic Model Lead 2: 6943 Serial# Lead 2: [id number] Date Implanted Lead 2: 11/18/00 Position Lead [...] R00.2 6. Atherosclerot ic heart disease of [place]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 with angina pectoris I25.119 7. Syncope R55 02/01/18 1335 <Electronically signed by Kim Pickard > Date Kim Pickard 02/02/18 0800<Electronically signed by Gurdeep Huang MD> Cosigner Signature: Date (if applicable) Gurdeep Huang MD CC: 27-Oct-2017 Venous Duplex Lower Extremity Result: Comments: See Note; NOTES: [facility] Cardiovascular Services [address] [place] [address] Venous Duplex US, Unilateral 10/27/17 0952 MR#: [id number] Acct: [id number] Name: IRIS HOU Rep #: [id number] : 1940 77 From: Alejandro Armendariz MD [...] Date Dictated: 10/27/17 0952 Date Transcribed: 10/27/171613 Rand Butter: Signed 15-Oct-2017 Pulmonary Visit Report Result: Comments: See Note; NOTES: [facility] [address] [place] [address] OFFICE VISIT Date of Service: 10/15/17 MR#: [id number] Acct: [id number] Name: IRIS STRINGER CH Rep #: [id number] : 1940 Provider: Glenna Anderson Age/Sex: 77/F [place] [facility] Status: Signed Assessment AND Plan 1. URMILA [...] Plan Detail Follow Up 3 Months (MIRNA) [facility] Hospital FU: Chief Complaint: Shortness of breath [...] body aches. She has not utilized any ggkv-fbe-meiyrkj medications for her shortness of breath. 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 [id number] Electronically Signed: Ed Fink MD at 11:10 EST Tel [phone], Service support , CC: Minerva Vergara MD Rand Butter: Signed 06-Oct-2017 Office Visit Report Result: Comments: See Note; NOTES: [facility] Services [address] [place] [address] OFFICE VISIT Date of Service: 09/25/17 MR#: [id number] Acct: [id number] Patient: IRIS ARRIAGA Rep #: [id number] : 1940 Provider: Kim Pickard Age/Sex: 77/F [place] [facility] Status: Signed Comments Summary Comments: Single Chamber ICD Evaluation: Interrogation shows no VT/VF episodes since 06/17/17. Left pectoral pocket/incision w/o s/s of infection or erosion. Pt offers no cardiac complaints. Presenting rhythm shows NSR @ 92 bpm. STEAM BLOCKER=<0.1%. Lead impedance, sensing and pace/sense thres hold remain stable. No parameter changes made. Counters cleared. Next f/u appt scheduled for in 3 mos. Device Device Date Interviewed: 09/25/17 Follow-up Location: in office Interview Reason: routine follow up Topper Packer: Medtronic Name: Protecta VR Model: [id number] Serial #: [id number] Implant Date: 04/29/13 Year(s): 4 Implant Physician: [...] Incision well healed Leads Le ad #1 Topper Packer Lead 1: Medtronic Model Lead 1: 5076 Serial# Lead 1: [id number] Date Implanted Lead 1: 09/03/04 Position Lead 1: RV Additional Details: pace/sense lead Lead #2 Topper Packer Lead 2: Sd marcus Model Lead 2: 6943 Serial# Lead 2: [id number] Date Implanted Lead 2: 11/18/00 Position Lead [...] Visit Report Result: Comments: See Note; NOTES: [facility] [address] [place] [address] OFFICE VISIT Date of Service: 09/11/17 MR#: [id number] Acct: [id number] Name: IRIS ARRIAGA Rep #: [id number] : 1940 Provider: Gurdeep Huang MD Age/Sex: 77/F [place] [facility] Status: Signed HPI 6 M FU: [...] that she was evaluated for such at [facility]. 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 She is due to see her parcel carrier at [facility] in October of this year. [...] artery disease) I25.10 Coronary Disease-Associated Artery/Lesion type: [place] artery Long-term use of high-risk medication Z79.899 [...] artery disease) I25.10 Coronary Disease-Associated Artery/Lesion type: [place] artery Long-term use of high-risk medication Z79.899 09/11/17 1716 <Electronically signed by Gurdeep Huang MD> Date Gurdeep Huang MD Cosigner Signature: Date ___ (if applicable) CC: Minerva Vergara MD 28-Jul-2017 Venous Duplex Lower Extremity Result: Comments: See Note; NOTES: [facility] Cardiovascular Services [address] [place] [place] [address] Venous Duplex US, Unilateral 07/28/17 0942 MR#: [id number] Acct: [id number] Name: IRIS HOU Rep #: [id number] : 1940 77 From: Alejandro Armendariz MD [...] MD Date Dictated: 07/28/17941 Date Transcribed: 07/28/171751 Rand Butter: Signed 28-Jul-2017 CT ANGIO ABD AND PEL W/O AND W/DYE Result: Comments: See Note; NOTES: [facility] Imaging Services [address] [place] [address] CT ANGIO ABD AND PEL W/O AND W/DYE MR#: [id number] Acct: [id number] Name: IRIS ARRIAGA Rep #: [id number] : 1940 F 77 From: Apolinar Ansari DO PCP: Minerva Vergara MD Status: REG CLI Study: CT ANGIO ABD AND PEL W/O AND W/DYE Date of Exam: 07/28/17 Exam# [id number] Ordering Dr: Minerva Child i, MD STUDY: [...] Service support , CC: Minerva Vergara MD Rand Butter: Signed 19-Feb-2017 6 Minute Walk Test Result: Comments: See Note; NOTES: [facility] Pulmonary Services/Neurology [address] [place] [address] MR#: [id number] Acct: [id number] Name: IRIS ARRIAGA Rep #: [id number] : 1940 77 From: Jeremie Schultz MD Referring Dr: Bruno Barcenas D.O. Date: Ordering Dr: Sex: F C Location: PSN PSN 6 Minute Walk Test - 6 Minute Walk Test 6 Minute Walk Test: 6 Minute Walk Test PS N:6-Minute Walk Test Start: 02/19/17 12:50 Freq: Status: Active Document 02/19/17 12:50 FR (Rec: 02/19/17 12:53 FR [id number]) 6 Minute Walk Test Date Performed 02/19/17 [...] Date Dictated: 02/19/17 1553 Date Transcribed: 02/19/171552 Rand Butter: Jeremie Schultz Signed 03-Jan-2017 Abdomen/Pelvis WITH Contrast Result: Comments: See Note; NOTES: [facility] Imaging Services [address] [place] [address] Verdana 4d Abdomen/Pelvis WITH Contrast MR#: [id number] Acct: [id number] Name: JARON ARRIAGA Rep #: [id number] : 1940 F 76 From: Ed Fink MD PCP: Minerva Vergara MD Status: REG CLI Study: Abdomen/Pelvis WITH Contrast Date of Exam: 01/03/17 Exam# [id number] Ordering Dr: Minerva Bartlett MD STUDY: CT [...] Ed Fink MD at 13:03 EDT Tel [phone], Service support , CC: Minerva Vergara MD Rand Butter: Signed 01-Jan-2017 Pulmonary Function Report Comp Result: Comments: See Note; NOTES: [facility] Pulmonary Services/Neurology [address] [place] [address] Pulmonary Function Test (Comp) MR#: [id number] Acct: [id number] Name: CATHLEEN ARRIAGA Rep #: [id number] : 1940 76 From: Bruno Barcenas DO Referring Dr: Minerva Vergara MD Status: REG CLI Ordering Dr: Minerva Vergara MD Date: 12/31/16 Location: [facility] Sex: F C DATE OF SERVICE: 12/10 [...] C: Referring Provider . T: NTS JOB: [id number] 01/01/17 1057 <Electronically signed by Christian Barcenas DO> Date Bruno Barcenas DO CC: Minerva Vergara MD; Bruno Barcenas D.O. Date Dictated: 12/31/16 160 Date Transcribed: 12/31/161600 Rand Butter: Signed 26-Dec-2016 Echocardiogram Complete Result: Comments: See Note; NOTES: [facility] Cardiovascular Services [address] [place] [address] Echo Complete 12/25/16 1357 MR#: [id number] Acct: [id number] Name: IRIS ARRIAGA Rep #: [id number] : 1940 76 From: Gurdeep Huang MD [...] Dictated: 12/25/16 1357 Date Transcribed: 12/26/16 09 Rand Butter: Signed 04-Dec-2016 Abd Inc Decub and/or Erect Result: Comments: See Note; NOTES: [facility] Imaging Services [address] [place] [address] Verdana 4d Abd Inc Decub and/or Erect MR#: [id number] Acct: [id number] Name: ARI ARRIAGA Jose Manuel Tucker Rep #: [id number] : 1940 F 76 From: Mele Brown MD PCP: Minerva Vergara MD Status: REG CLI Study: Abd Inc Decub and/or Erect Date of Exam: 12/04/16 Exam# [id number] Ordering Dr: Anita Quiñonez DO STUDY: X-RAY [...] CC: Minerva Vergara MD; Ida Quiñonez DO Rand Butter: Signed 04-Dec-2016 CTA Chest W/WO Contrast Result: Comments: See Note; NOTES: [facility] Imaging Services [address] [place] [address] 4d CTA Chest W/WO Contrast MR#: [id number] Acct: [id number] Name: IRIS ARRIAGA Rep #: [id number] : 1940 F 76 From: Ed Fink MD PCP: Minerva Vergara MD Status: REG CLI Study: CTA Chest W/WO Contrast Date of Exam: 12/04/16 Exam# [id number] Ordering Dr: Ida Quiñonez DO STUDY: CTA [...] Megan Fink MD at 15:43 EDT Tel [phone], Service support , CC: Minerva Vergara MD; Ida Quiñonez DO Rand Butter: Signed 03-Dec-2016 Venous Duplex Lower Extremity Result: Comments: See Note; NOTES: [facility] Cardiovascular Services [address] [place] [address] Venous Duplex US - David Extrem 12/03/16 1553 MR#: [id number] Acct: [id number] Name: IRIS ARRIAGA Rep #: [id number] : 1940 76 From: Alejandro Armendariz MD [...] 12/03/16 1553 Da te Transcribed: 12/03/16 1850 Rand Butter: Signed 02-Dec-2016 Abdomen without IV Contrast Result: Comments: See Note; NOTES: [facility] Imaging Services [address] [place] [address] Verdana 4d Abdomen without IV Contrast MR#: [id number] Acct: [id number] Name: CAMILA ARRIAGA Rep #: [id number] : 1940 F 76 From: Moses Chase MD PCP: Minerva Vergara MD Status: REG CLI Study: Abdomen without IV Contrast Date of Exam: 12/02/16 Exam# [id number] Ordering Dr: Minerva Broussard MD STUDY: CT [...] diverticulitis. The abdominal wall is intact. A Eldon umbrella filter is in place but 4 [...] left.. CT/Abdomen without IV Contrast IMPRESSION: A Eldon umbrella filter in place with at least [...] Service support , CC: Minerva Vergara MD Rand Butter: Signed 31-Oct-2016 Abd Inc Decub and/or Erect Result: Comments: See Note; NOTES: [facility] Imaging Services [address] [place] [address] Verdana 4d Abd Inc Decub and/or Erect MR#: [id number] Acct: [id number] Name: ARI ARRIAGA Rep #: [id number] : 1940 F 76 From: Ed Fink MD PCP: Minerva Vergara MD Status: REG CLI Study: Abd Inc Decub and/or Erect Date of Exam: 10/31/16 Exam# [id number] Ordering Dr: Minerva Vergara MD STUDY: X-RAY [...] Ed Fink MD at 10:26 EDT Tel [phone], Service support [phone], CC: Minerva Vergara MD Rand Butter: Signed 31-Oct-2016 Chest PA and Lateral Result: Comments: See Note; NOTES: [facility] Imaging Services [address] [place] [address] Verdana 4d Chest PA and Lateral MR#: [id number] Acct: [id number] Name: IRIS ARRIAGA Re p #: [id number] : 1940 F 76 From: Ed Fink MD PCP: Minerva Vergara MD Status: REG CLI Study: Chest PA and Lateral Date of Exam: 10/31/16 Exam# [id number] Ordering Dr: Minerva Vergara MD S DY: [...] Ed Fink MD at 10:27 EDT Tel [phone], Service support [phone], CC: Minerva Vergara MD Rand Butter: Signed 26-Sep-2016 Dexa Bone Density Study (HP) Result: Comments: See Note; NOTES: [facility] Imaging Services [address] [place] [address] Verdana 4d Dexa Bone Density Study (HP) MR#: [id number] Acct: [id number] Name: JARON ARRIAGA Rep #: [id number] : 1940 F 76 From: Ed Fink MD PCP: Minerva Vergara MD Status: REG CL Study: Dexa Bone Density Study (HP) Date of Exam: 09/26/16 Exam# [id number] Ordering Dr: Minerva Bartlett MD STUDY: DUAL [...] Fink MD at 15:0 0 EST Tel [phone], Service support [phone], CC: Minerva Vergara MD Rand Butter: Signed 26-Sep-2016 SCREENING MAMM (CAD), BILAT Result: Comments: See Note; NOTES: [facility] Imaging Services [address] [place] [address] Verdana 4d SCREENING MAMM (CAD), BILAT MR#: [id number] Acct: [id number] Name: CAMILA ARRIAGA Rep #: [id number] : 1940 F 76 From: Ed Fink MD PCP: Minerva Vergara MD Status: REG CLI Study: SCREENING MAMM (CAD), BILAT Date of Exam: 09/26/16 Exam# [id number] Ordering Dr: Minerva Child i, MD MAMMOGRAPHY [...] delay biopsy of a clinically suspicious abnormality. [id number] Electronically Signed: Ed Fink MD at 7:48 EST Tel [phone], Service support [phone], CC: Minerva Vergara MD Rand Butter: Signed 09-Feb-2016 Operative Report Result: Comments: See Note; NOTES: [facility] Medical Records Department [address] [place] [address] Operative Report MR#: [id number] Acct: [id number] Name: CAMILA ARRIAGA Rep #: [id number] : 1940 76 From: Clifford Gifford MD [...] without difficulty to the cecum, identified by shawnee's foot appearance, ileocecal valve and appendiceal orifice. [...] patient. Kamari Gifford MD T: NTS JOB: [id number] 02/09/16 0706 <Electronically signed by Clifford Gifford MD> Date Clifford Gifford MD Cosign er Signature (If Indicated): Date CC: Clifford Gifford; Minerva Veragra MD Date Dictated: 01/30/16 0833 Date Transcribed: 01/30/16832 Rand Butter: Signed 15-Nov-2015 Gallbladder Result: Comments: See Note; NOTES: [facility] Imaging Services [address] [place] [address] Verdana 4d Gallbladder MR#: [id number] Acct: [id number] Name: IRIS ARRIAGA Rep #: [id number] : 1940 F 75 From: Sofia Storey MD PCP: Minerva Vergara MD Status: REG ER Study: Gallbladder Date of Exam: 11/15/15 Exam# [id number] Ordering Dr: Jalil Nogueira MD STUDY: ULTRASOUND [...] MD at 21:57 EDT , Service support [phone], F ax [phone] CC: Minerva Vergara MD; Jalil Nogueira MD Rand Butter: Signed 15-Nov-2015 Abdomen/Pelvis WITH Contrast Result: Comments: See Note; NOTES: [facility] Imaging Services [address] [place] [address] Verdana 4d Abdomen/Pelvis WITH Contrast MR#: [id number] Acct: [id number] Name : IRIS ARRIAGA Rep #: [id number] : 1940 F 75 From: Sofia Storey MD PCP: Bonezzi MD,Minerva Status: REG ER Study: Abdomen/Pelvis WITH Contrast Date of Exam: 11/15/15 Exam# [id number] Order ing Dr: Jalil Nogueira MD STUDY: [...] MD at 20:10 EDT , Service support [phone], CC: Minerva Vergara MD; Jalil Nogueira MD Rand Butter: Signed 31-Oct-2015 Cerv Spine 4 or 5 Views Result: Comments: See Note; NOTES: [facility] Imaging Services [address] [place] [address] Verdana 4d Cerv Spine 4 or 5 Views MR#: [id number] Acct: [id number] Name: IRIS WRAY Rep #: [id number] : 1940 F 75 From: Alexey Stephens MD PCP: Minerva Vergara MD Status: REG CLI Study: Cerv Spine 4 or 5 Views Date of Exam: 10/31/15 Exam# [id number] Ordering Dr: Tiffanie Corcoran DO STUDY: X-RAY [...] a t 13:54 EDT , Service support [phone], RAD/Cerv Spine 4 or 5 Views IMPRESSION: Severe cervical spondylosis. Electronically Signed: Earl Stephens MD, FACR at 13:54 EDT , Service support [phone], CC: Tiffanie Saha DO; Minerva Vergara MD Rand Butter: Signed 28-Sep-2015 PT D/C Summary (1) Result: Comments: See Note; NOTES: [facility] Physical Therapy [facility] [address] [place], [place] [address] Fax REHABILITATION SE RVICES DISCHARGE SUMMARY MR#: [id number] Acct: [id number] Name: IRIS ARRIAGA Rep #: [id number] : 1940 75 From: Kelvin Newman DPT, [...] please feel free to call me at [phone]. Thank you for the referral of this patient. Sincerely, Kelvin Newman <Electronically signed by Kelvin Newman DPT, OCS, CSCS> 09/28/15 0944 CC: Minerva Vergara MD; Nerissa Bhat EBG Signed 24-Aug-2015 PT Communication Result: Comments: See Note; NOTES: [facility] Physical Therapy [address] [place] [address] Fax REHABILITATION SE RVICES PROGRESS NOTE MR#: [id number] Acct: [id number] Name: IRIS ARRIAGA Rep #: [id number] : 1940 75 From: Kelvin Newman Referring Dr.: Nerissa Bhat Status: REG RCR Insurance: [employer] PPO ANTHEM PT Communication Note 08/24/15 Dear Mert Moore and Dr. Vergara, Thank you for the referral of Iris Arriaga to [facility] for physical therapy and balance assessment. I [...] - PT Result: Comments: See Note; NOTES: [facility] Physical Therapy [facility] [address] [place] [address]. [address] [place] [address] Fax [facility] [id number] Acct: [id number] Name: IRIS ARRIAGA Rep #: [id number] : 1940 75 From: Kelvin Newman Referring [...] Duration: 4-6 Weeks - Subjective Fell at [employer] in May and hurt head. Then p assed out shortly thereafter went to ER and was dehydrated. Went to Dr. vergara a couple weeks ago and was sent to ER for low blood pressure. Spent a few days in hospital and found that the pig valve is thickening. Will go to [place] later in month as Dr. Huang sent [...] to be FAXED BACK to us at [phone] for Medicare purp oses. Please let me know if there are questions or concerns regarding this plan of care. Physician Signature: Date: <Electron ically signed by Kelvin Newman > 08/17/15 0944 CC: Minerva Vergara MD; Nerissa Bhat EBG Signed For Medicare only, by signing this I certify the plan of care. Physicians Signature Date 09-Aug-2015 Brain/Head without Contrast Result: Comments: See Note; NOTES: [facility] Imaging Services [address] [place] [address] Verdana 4d Brain/Head without Contrast MR#: [id number] Acct: [id number] Name: IRIS ARRIAGA Rep #: [id number] : 1940 F 75 From: Robert Osborn MD PCP: Minerva Vergara MD Status: REG Study: Brain/Head without Contrast Date of Exam: 08/09/15 Exam# [id number] Ordering D r: Sneha Baptiste MD STUDY: [...] at 13:15 EST Tel , Service support [phone], CC: Minerva sierra MD; Sneha Baptiste MD Rand Butter: Signed 09-Aug-2015 Chest 1 View (Portable) Result: Comments: See Note; NOTES: [facility] Imaging Services [address] [place] [address] Verdana 4d Chest 1 View (Portable) MR#: [id number] Acct: [id number] Name: IRIS WRAY Rep #: [id number] : 1940 F 75 From: Robert Osborn MD PCP: Minerva Vergara MD Status: REG ER Study: Chest 1 View (Portable) Date of Exam: 08/09/15 Exam# [id number] Ordering Dr: Sneha Baptiste MD STUDY: X-RAY [...] at 12:43 EST Tel , Service support [phone], RAD/Chest 1 View (Portable) IMPRESSION: No acute pulmonary process, no interval change Electronically Signed: Josesito Osborn MD at 12:43 EST Tel , Service support [phone], CC: Minerva Vergara MD; Sneha Baptiste MD Rand Butter: Signed 20-Jul-2015 Chest PA and Lateral Result: Comments: See Note; NOTES: [facility] Imaging Services [address] [place] [address] Verdana 4d Chest PA and Lateral MR#: [id number] Acct: [id number] Name: IRIS ARRIAGA Rep #: [id number] : 1940 F 75 From: Ed Fink MD PCP: Minerva Vergara MD Status: REG CLI Study: Chest PA and Lateral Date of Exam: 07/20/15 Exam# [id number] Ordering Dr: Minerva Amezquita MD STUDY: X-RAY [...] Ed Fink MD at 13:14 EST Tel [phone], Service support , RAD/Chest PA and Lateral IMPRESSION: No acute abnormality is seen. Electronically Signed: Ed Fink MD at 13:14 EST Tel [phone] , Service support [phone], CC: Minerva Vergara MD Rand Butter: Signed 06-Jun-2015 Brain/Head without Contrast Result: Comments: See Note; NOTES: [facility] [facility] [address] [place] [address] Verdana 4d Brain/Head without Contrast MR#: [id number] Acct: [id number] Name: IRIS ARRIAGA Rep #: [id number] : 1940 F 75 From: Ed Fink MD PCP: Minerva Vergara MD Status: REG ER Study: Brain/Head without Contrast Date of Exam: 06/06/15 Exam# [id number] Artemus sarojing Dr: Kermit Verduzco MD STUDY: CT [...] Fink MD a t 16:13 EDT Tel [phone], Service support [phone], CC: Minerva Vergara MD; Kermit eVrduzco MD Rand Butter: Signed 06-Jun-2015 Chest 1 View (Portable) Result: Comments: See Note; NOTES: [facility] Imaging Services [address] [place] [address]1632 Verda 4d Chest 1 View (Portable) MR#: [id number] Acct: [id number] Name: IRIS WRAY Rep #: [id number] : 1940 F 75 From: Farhad Cedillo MD PCP: Minerva Vergara MD Status: REG ER Study: Chest 1 View (Portable) Date of Exam: 06/06/15 Exam# [id number] Ordering Dr: Kermit Verduzco MD STUDY: X-RAY [...] at 17:06 EDT Tel , Service support [phone], [place] ER #: [id number] RAD/Chest 1 View (Portable) IMPRESSION: 1. Left-sided bipolar pacemaker seen with leads appearing in good position. 2. Moderate cardiomegaly. 3. Status post sternotomy changes. 4. There is no evidence of infiltrate, atelectasis, or pleural fluid. Electronically Signed: Farhad Cedillo MD at 17:06 EDT Tel , Service support [phone], Fax CC: Minerva Vergara MD; Kermit Verduzco MD Rand Butter: Signed 06-Jun-2015 Pelvis 1 or 2 Views Result: Comments: See Note; NOTES: [facility] Imaging Services [address] [place] [address] Verdana 4d Pelvis 1 or 2 Views MR#: [id number] Acct: [id number] Name: IRIS ARRIAGA Rep #: [id number] : 1940 F 75 From: Ed Fink MD PCP: Minerva Vergara MD Status: REG ER Study: Pelvis 1 or 2 Views Date of Exam: 06/06/15 Exam# [id number] Ordering Dr: Kermit Verduzco MD STUDY: X-RAY [...] Ed Fink MD at 16:15 EDT Tel [phone], Service support [phone], RAD/Pelvis 1 or 2 Views IMPRESSION: Status post bilateral total hip replacement. Elect ronically Signed: Ed Fink MD at 16:15 EDT Tel [phone], Service support [phone], CC: Minerva Vergara MD; Kermit Verduzco MD Rand Butter: Signed 06-Jun-2015 Spine Cervical without Contras Result: Comments: See Note; NOTES: [facility] Imaging Services [address] [place] [address]92 Verdana 4d Spine Cervical without Contras MR#: [id number] Acct: [id number] me: IRIS ARRIAGA Rep #: [id number] : 1940 F 75 From: Ed Fink MD PCP: Minerva Vergara MD Status: REG ER Study: Spine Cervical without Contras Date of Exam: 06/06/15 Exam# [id number]: Kermit Verduzco MD STUDY: [...] Ed Fink MD at 16:15 EDT Tel [phone], Service support [phone], CC: Minerva Vergara MD; Kermit Verduzco MD Rand Butter: Signed 19-Apr-2015 Spine Lumbar without Contrast Result: Comments: See Note; NOTES: [facility] Imaging Services [address] [place], [place] [address] [address] CAT Scan Report MR#: [id number] Acct: [id number] Name: IRIS ARRIAGA Rep #: [id number] : 1940 F 75 From: Tami Rodriguez MD PCP: Minerva Vergara MD Status: REG CLI Study: Spine Lumbar without Contrast Date of Exam: 04/19/15 Exam# [id number] Ordering Dr: Monica Mir, Out o. STUDY: [...] at 14:58 EDT Tel , Service support [phone], CC: Minerva Vergara MD; OUT OF TOWN DOCTOR Rand Butter: Signed 19-Apr-2015 Lumbar Myelogram Result: Comments: See Note; NOTES: [facility] Imaging Services [address] [place] [address] Radiology Report MR#: [id number] Acct: [id number] Name: IRIS ARRIAGA Rep #: [id number] : 1940 F 75 From: Tami Rodriguez MD PCP: Minerva Vergara MD Status: REG CLI Study: Lumbar Myelogram Date of Exam: 04/19/15 Exam# [id number] Ordering Dr: CRISTIAN COFFEY CLINICAL HISTORY : [...] at 15:12 EDT Tel , Service support [phone], RAD/Lumbar Myelogram IMPRESSI ON: There is severe spinal canal stenosis at L4-5. Electronically Signed: Jessy Rodriguez MD at 15:12 EDT Tel , Service support [phone], CC: Gina Vergara MD; CRISTIAN COFFEY Rand Butter: Signed 10-Apr-2015 Discharge Instruction Result: Comments: See Note; NOTES: [facility] Medical Records Department [address] [place] [address] Discharge Instruction 04/03/15 1440 MR#: [id number] Acct: [id number] Name: IRIS ARRIAGA Rep #: [id number] : 1940 75 From: Ellen Gilman MD [...] problems, contact your doctor. Call [facility] ([phone]) or report to the closest Emergency Room. Call 911 if necessary. 04/03/15 1441 <Electronically signed by Ellen Gilman MD> Date Ellen Gilman MD 04/10/15 0835<Electronically signed Juli Polanco MD> Cosigner Signature (If Indicated): Date Rickie Polanco MD CC: Minerva Vergara MD 10-Apr-2015 Discharge Instruction Result: Comments: See Note; NOTES: [facility] Medical Records Department [address] [place] [address] Discharge Instruction 04/03/15 1448 MR#: [id number] Acct: [id number] Name: IRIS ARRIAGA Rep #: [id number] : 1940 75 From: Rickie Polanco MD PCP: Minerva Vergara MD Status: DEP ER ED Disposition - Plan for ED Patient: Disposition: Home or Assisted Living C [facility] Complaint: Lower Extremity Injury Instructions: ED Leg [...] problems, contact your doctor. Call [facility] ([phone]) or report to the closest Emergency Room. Call 911 if necessary. 04/10 0835 <Electronically signed by Rickie Polanco MD> Date Rickie Polanco MD Cosigner Signature (If Indicated): Date CC: Minerva Vergara MD 10-Apr-2015 Emergency Department Summary Result: Comments: See Note; NOTES: [facility] Medical Records Department [address] [facility] [place] [address] Emergency Department Summary MR#: [id number] Acct: [id number] Name: IRIS VALENCIA Rep #: [id number] : 1940 75 From: Ellen Gilman MD PCP: Minerva Vergara MD Status: DEP ER DATE OF SERVICE: 04/03/2015 This is Ellen Gilman dictating for Dr. iRckie Polanco. HI STORY OF PRESENT ILLNESS: The [...] acute. Ellen Gilman MD T: NTS JOB: [id number] 04/05/15 0836 <Electronically signed by Ellen Gilman MD> Date Ellen Gilman MD 04/10/15 0835 <Electronically signed by Natanael Polanco MD> Cosigner Signature (If Indicated): Date Rickie Polanco MD CC: Minerva Vergara MD Date Dictated: 04/03/151454 Date Transcribed: 04/03/151454 Rand Butter: Signed 04-Apr-2015 12 Lead Electrocardiogram Result: Comments: See Note; NOTES: [facility] Cardiovascular Services [address] [place] [address] 12 Lead EKG 04/03/151350 MR#: [id number] Acct: [id number] Name: IGGY ARRIAGA Rep #: [id number] : 1940 75 From: Gurdeep Huang MD [...] Confirmed by REINA TIRADO, GURDEEP ([id number]), editorial director CAROLEE MARIEE (56) on 04/04/2015 10:27:52 AM Referred By: VALENTINA Confirmed By:GURDEEP HUANG MD 04/04/15 1027 Date Gurdeep Huang MD CC: Minerva Vergara MD Date Dictated: 04/03/151350 Date Transcribed: 04/03/151350 Rand Butter: Signed 03-Apr-2015 Femur 2 Views Result: Comments: See Note; NOTES: [facility] Imaging Services [address] [place] [address] Radiology Report MR#: [id number] Acct: [id number] Name: IRIS ARRIAGA Rep #: [id number] : 1940 F 75 From: Ed Fink MD PCP: Minerva Vergara MD Status: REG ER Study: Femur 2 Views Date of Exam: 04/03/15 Exam# [id number] Ordering Dr: Rickie Polanco MD STUDY: X- [...] Ed Fink MD at 12:59 EDT Tel [phone], Service support [phone], RAD/ Femur 2 Views IMPRESSION: No acute abnormality is seen. Electronically Signed: Ed Fink MD at 12:59 EDT Tel [phone], Service support [phone], CC: Minerva Vergara MD; Rickie Polanco MD Rand Butter: Signed 03-Apr-2015 Chest PA and Lateral Result: Comments: See Note; NOTES: [facility] Imaging Services [address] [place] [address] Radiology Report MR#: [id number] Acct: [id number] Name: IRIS ARRIAGA Rep #: [id number] : 1940 F 75 From: Ed Fink MD PCP: Minerva Vergara MD Status: REG ER Study: Chest PA and Lateral Date of Exam: 04/03/15 Exam# [id number] Ordering Dr: Ellen Gilman MD STUD Y: X-RAY CHEST REASON FOR EXAM: Female, 75 years old. Chest pain and chest tightness. TECHNIQUE: AP and lateral views of the chest. COMPARISON: Comparison is made with prior examination dated [facility] 2014. FINDINGS: There is blunting [...] Ed Fink MD at 13:05 EDT Tel [phone], Service support [phone], Fax RAD/Chest PA and Lateral IMPRESSION: Mild degree of linear scarring at the lung bases and blunting of both costophrenic angles. Electronically Signed: Ed ledezma MD at 13:05 EDT Tel [phone], Service support [phone], CC: Ellen Gilman MD; Minerva Vergara MD Rand Butter: Signed 27-Mar-2015 Abd Inc Decub and/or Erect Result: Comments: See Note; NOTES: [facility] Imaging Services [address] [place] [address] Radiology Report MR#: [id number] Acct: [id number] Name: IRIS ARRIAGA Rep #: [id number] : 1940 F 75 From: Tylor Guzman DO PCP: Minerva Vergara MD Status: REG CLI Study: Abd Inc Decub and/or Erect Date of Exam: 03/27/15 Exam# [id number] Ordering Dr: Ida Quiñonez DO STUDY: X- [...] Guzman DO at 18:34 EDT Te l [phone], Service support [phone], 0093 RAD/Abd Inc Decub and/or Erect IMPRESSION: No acute abdominal pathology is noted. Electronically Signed: Tylor Guzman DO at 18:34 EDT Tel [phone], Service support [phone], CC: Minerva Vergara MD; Ida Quiñonez DO Rand Butter: Signed 20-Mar-2015 PT Discharge Summary Result: Comments: See Note; NOTES: [facility] Physical Therapy Health[address] [place] [address] Fax REHABILITATION SERVICES DISCHARGE SUMMARY MR#: [id number] Acct: [id number] Name: IRIS ARRIAGA Rep #: [id number] : 1940 75 From: Kelvin Newman Referring [...] program. Kelvin Newman, PT T: NTS JOB: [id number] <Electronically signed by Kelvin Newman > 03/20/15 0648 CC: Signed 25-Jan-2015 Chest PA and Lateral Result: Comments: See Note; NOTES: [facility] Imaging Services [address] [place] [address] Radiology Report MR#: [id number] Acct: [id number] Name: IRIS ARRIAGA Rep #: [id number] : 1940 F 75 From: Apolinar Ansari DO PCP: Minerva Vergara MD Status: REG CLI Study: Chest PA and Lateral Date of Exam: 01/25/15 Exam# [id number] Ordering Dr: Gurdeep Huang MD STUD Y: [...] at 5:42 EDT Tel , Service support [phone], RAD/Chest PA and Lateral IMPRESSION: Very minimal left basilar atel ectasis. Otherwise, no acute process. Electronically Signed: Apolinar DO Elan at 5:42 EDT Tel , Service support [phone], CC: Minerva Vergara MD; Gurdeep Huang MD Rand Butter: Signed 24-Jan-2015 Pulmonary Function Report Comp Result: Comments: See Note; NOTES: [facility] Pulmonary Services/Neurology [address] [place] [address] Pulmonary Function Test (Comp) MR#: [id number] Acct: [id number] Name: TANISHA REDIRIS Caitlin Rep #: [id number] : 1940 75 From: Jeremie Schultz MD [...] MD C C: Gurdeep Huang MD T: [facility] JOB: [id number] SPIROMETRY Ref ULN/LLN Pre Pre Post Post [...] MD Date Dictated: 01/19/151645 Date Transcribed: 01/19/151645 Rand Butter: Signed 19-Jan-2015 Inital Evaluation - PT Result: Comments: See Note; NOTES: [facility] Physical Therapy [facility] [facility] [place] [address] Fax REHABILITATION SERVICES INITIAL EVALUATION MR#: [id number] Acct: [id number] Name: IRIS ARRIAGA Rep #: [id number] : 1940 75 From: Kelvin Newman Referring [...] Physicians Signature Date 10-Jan-2015 ELECTROCARDIOGRAM, COMPLETE (ECG) (76247) Result: [MEASUREMENTS ANALYSIS] Date of Test: 08/09/2015 10:29:14; Heart Rate: 78; NH Interval: 230; QRS: 114; QT Interval: 438; Corrected QT Interval (QTc): 469; P Wave [place]: 69; QRS Wave [place]: -7; T Wave [place] : 22; Blood Pressure: 140/90 [ECG DIAGNOSTIC STATEMENTS] Date of Test: 08/09/2015 10:29:14; Summary: Sinus Rhythm -First degree A-V block -Frequent pvcs - ventricular bigeminy Viridiana = 230- Nonspecific T-abnormality. ABNORMAL [MEASUREMENTS ANALYSIS] Date of Test: 08/09/2015 10:29:10; Heart Rate: 78; NH Interval: 230; QRS: 114; QT Interval: 438; Corrected QT Interval (QTc): 469; P Wave [place]: 69; QRS W [address] [place]: -7; T Wave [place]: 22; Blood Pressure: 140/90 [ECG DIAGNOSTIC STATEMENTS] Date of Test: 08/09/2015 10:29:10; Summary: Sinus Rhythm -First degree A-V block -Frequent pvcs -ventricular bigeminy Viridiana = 230- Nonspecific T- abnormality. ABNORMAL 05-Jan-2015 PT Discharge Summary Result: Comments: See Note; NOTES: [facility] Physical Therapy [facility] [facility] [place] [address] Fax REHABILITATION SERVICES DISCHARGE SUMMARY MR#: [id number] Acct: [id number] Name: IRIS ARRIAGA Rep #: [id number] : 1940 74 From: Kelvin Newman Referring [...] program. Kelvin Newman, PT T: NTS JOB: [id number] <Electronically signed by Kelvin Newman > 01/05/15 0931 CC: Signed 24-Nov-2014 Inital Evaluation - PT Result: Comments: See Note; NOTES: [facility] Physical Therapy [facility] [facility] [place] [address] Fax REHABILITATION SERVICES INITIAL EVALUATION MR#: [id number] Acct: [id number] Name: IRIS ARRIAGA Rep #: [id number] : 1940 74 From: Kelvin Newman Referring [...] is sleepin g well. She is a [employer] member here at [employer], but has not worked out here much [...] heat. Kelvin Newman, PT T: LORI JOB: [id number] <Electronically signed by Kelvin Newman > 11/24/14 0940 CC: Signed For [facility] only, by signing this I certify the plan of care. Physicians Signature Date 04-Nov-2014 Abdomen Single View Result: Comments: See Note; NOTES: [facility] Imaging Services [address] [place] [address] Radiology Report MR#: [id number] Acct: [id number] Name: IRIS ARRIAGA Rep #: [id number] : 1940 F 74 From: Ed Fink MD PCP: Minerva Vergara MD Status: REG CLI Study: Abdomen Single View Date of Exam: 11/04/14 Exam# [id number] Ordering Dr: Minerva Vergara MD STUDY : [...] Ed Fink MD at 14:10 EDT Tel [phone], Service support [phone], Fax RAD/Abdomen Single View IMPRESSION: Moderate amount of fecal material is seen throughout the colon. Electronically Signed: Ed Fink MD at 14: 10 EDT Tel [phone], Service support [phone], CC: Minerva Vergara MD Rand Butter: Signed 04-Nov-2014 Shoulder min 2 Views Result: Comments: See Note; NOTES: [facility] Imaging Services [address] [place] [address] Radiology Report MR#: [id number] Acct: [id number] Name: IRIS ARRIAGA Rep #: [id number] : 1940 F 74 From: dE Fink MD PCP: Minerva Vergara MD Status: REG CLI Study: Shoulder min 2 Views Date of Exam: 11/04/14 Exam# [id number] Ordering Dr: Minerva Vergara MD STUD Y: [...] Ed Fink MD at 14:11 EDT Tel [phone], Service support [phone], CC: Minerva Vergara MD Rand Butter: Signed 21-Oct-2014 Echocardiogram Complete Result: Comments: See Note; NOTES: [facility] Cardiovascular Services [address] [place] [address] Echo Complete 10/19/14 1314 MR#: [id number] Acct: [id number] Name: CATHLEEN ARRIAGA Rep #: [id number] : 1940 74 From: Gurdeep Huang MD [...] Date Dictated: 10/19/14 1314 Date Transcribed: 10/19/141740 Rand Butter: Signed 23-Sep-2014 12 Lead Electrocardiogram Result: Comments: See Note; NOTES: [facility] Cardiovascular Services [address] [place] [address] 12 Lead EKG 09/22/14 1440 MR#: [id number] Acct: [id number] Name: JARON ARRIAGA Rep #: [id number] : 1940 74 From: Peewee Cotto MD [...] ECG Confirmed by PEEWEE COTTO ([id number]), editorial director CAROLEE MARIEE (56) on 09/23/2014 2: 44:4 7 PM Referred By: TRAV Confirmed By:PEEWEE COTTO 09/23/14 1444 Date Peewee Cotto MD CC: Minerva Vergara MD Date Dictated: 09/22/14 1440 Date Transcribed: 09/22/14 144 Rand Butter: Signed 22-Sep-2014 Discharge Instruction Result: Comments: See Note; NOTES: [facility] Medical Records Department [address] [place] [address] Discharge Instruction 09/22/14 1616 MR#: [id number] Acct: [id number] Name: IRIS ARRIAGA Rep #: [id number] : 1940 74 From: Kermit Verduzco MD PCP: Minerva Vergara MD Status: [facility] ER ED Disposition - Plan for [...] Department Summary Result: Comments: See Note; NOTES: [facility] Medical Records Department [address] [place] [address] Emergency Department Summary MR#: [id number] Acct: [id number] Name: IRIS ARRIAGA Rep #: [id number] : 1940 74 From: Kermit Verduzco MD PCP: Minerva Vergara MD Status: [facility] ER DATE OF SERVICE: 09/22/2014 CHIEF [...] 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 She [...] Discharge. Kermit Verduzco MD T: NTS JOB: [id number] 09/22/14 3532 <Electronically signed by Kermit Verduzco MD> Date Kermit Verduzco MD CC: Minerva Vergara MD Date Dictated: 09/22/141614 Date Transcribed: 09/22/141614 Rand Butter: Signed 22-Sep-2014 Chest PA and Lateral Result: Comments: See Note; NOTES: [facility] Imaging Services [address] [place] [address] Radiology Report MR#: [id number] Acct: [id number] Name: IRIS ARRIAGA Rep #: [id number] : 1940 F 74 From: Ed Fink MD PCP: Minerva Vergara MD Status: REG ER Study: Chest PA and Lateral Date of Exam: 09/22/14 Exam# [id number] Ordering Dr: Kermit Verduzco MD ROWAN DY: [...] CC: Minerva Vergara MD; Kermit Verduzco MD Rand Butter: Signed Family History Unknown Family Member Name [...] Status: 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 [employer] Status: Active Exercise History Comments: Exercises occasionally [...] kg/m2 Body Surface Area Calculated 1.97 m2 42-Svg-316157:15 Comments: sitting- spo2 on 2L- 89% P66 [...] Panel, Basic Comments: PATIENT NOT FASTINGPERFORMED BY: [facility] CenterHhslev4656 [facility] [id number] ([id number]) Calcium 9.4 mg/dL (Normal) Range: 8.7-10.3 Carbon [...] 8-27 Glucose 72 mg/dL (Normal) Range: 65-99 62-Zmi-29098:13 Pathology Report Comments: PERFORMED BY: CYCIN [facility] Mxtx6964 [facility] [id number] BY: KWCYT [facility] Cyto Kdyjo02346 [facility] [id number] Clinical Information: [id number] See MATER Comments: Material submitted: .ABDOMINAL BIOPSYClinical [...] ENTIRELY SUBMITTEDIN ONE CASSETTE.BCO/SMIPathologist provided ICD-10:D21.4, L82.1CPT .764404 93-Adb-394556:35 Comprehensive Metabolic Profil Comments: [facility] [address] [place], [place], [address] GAP 8 (Normal) Range: 5-15 CO2 33.0 mmol/L (Abnormal) Range: 21.0-32.0 CL 95 mmol/L (Abnormal) Range: 98-107 K 3.6 mmol/L (Normal) Range: 3.5-5.1 NA 136 mmol/L (Normal) Range: 136-145 T BILI 0.70 mg/dL (Normal) Range: 0.20-1.00 ALT 23 U/L (Normal) Range: 13-56 Comments: Please note revised ALT reference range aawuchhwz32/28/2018. ALK P 79 U/L (Normal) Range: 45-117 [...] Comments: Please note revised GLUCOSE reference range jlrovkwvp68/02/2018. 03-Ees-399574:35 Phosphorus Comments: [facility] [address] [place], [place], [address] PHOS 4.0 mg/dL (Normal) Range: 2.5-4.9 99-Rqs-040695:35 Uric Acid Comments: [facility] [address] [place], [place], [address] URIC 10.9 mg/dL (Abnormal) Range: 2.6-6.0 Comments: The drugs N-Acetylcysteine and Metamizole may falselydepress this assay. 46-Iwh-335880:19 Metabolic Panel, Comments: fax a copy to Dr. Tucker [phone] Huang [phone]; A courtesy copy of this report has been sent [phone], .PATIENT NOT FASTINGPERFORMED BY: [facility] kj9838 Jyotsna Clements ([address]) x [place] [id number] Information: HARD DRAW/BUTTERFLY ALT (SGPT) 19 [iU]/L [...] Glucose, Serum 97 mg/dL (Normal) Range: 65-99 48-Ywg-961438:56 Basic Metabolic Profile (BMP) Comments: Order Date: 08/07/17Order Info: 0667-1 - BMPComments: now stat and prnWMcCullough[facility] [address] [place], [place], [address] GAP 8 (Normal) Range: 5-15 CO2 29.0 [...] 7-18 GLU 80 mg/dL (Normal) Range: 70-110 04-Enl-021901:23 CREATININE FINGERSTICK Comments: [facility] LaboratoryPoint of [address] [place], [place] [address] CREATININE WB 1.3 mg/dL (Abnormal) Range: 0.55-1.02 11-Sep-20171:20 CBC WITH MANUAL DIFF Comments: PATIENT NOT FASTINGPERFORMED BY: [facility] Sghsdy1610 [facility] [id number] Information: NURSE DRAW (60245) Immature Grans (Abs) 0.0 {x10E3/uL} (Normal) Range: [...] Panel, Comprehensive Comments: PATIENT NOT FASTINGPERFORMED BY: [facility] CenterOzmeou1865 [facility] [id number] (69017) ALT (SGPT) 11 [iU]/L (Normal) Range: 0-32 [...] 101 mg/dL (Abnormal) Range: 65-99 11-Sep-20171:20 URINALYSIS (82294) Comments: PATIENT NOT FASTINGPERFORMED BY: [facility] CenterRteljm8356 [facility] [id number] Microscopic Examination MICNIP (Normal) Comments: Microscopic not indicated and not performed. Nitrite, Urine Negative (Normal) Urobilinogen,Semi-Qn 1.0 mg/dL (Normal) Range: 0.2-1.0 Bilirubin Negative (Normal) Occult Blood Negative (Normal) Ketones Negative (Normal) Glucose Negative (Normal) Protein Trace (Normal) WBC Esterase Negative (Normal) Appearance Clear (Normal) Urine-Color Yellow (Normal) pH 7.0 (Normal) Range: 5.0-7.5 Specific [place] 1.018 (Normal) Range: 1.005-1.030 0-Gkw-705197:34 Basic Metabolic Profile (BMP) Comments: [facility] [address] [place], [place], [address] GAP 10 (Normal) Range: 5-15 CO2 26.0 [...] 7-18 GLU 92 mg/dL (Normal) Range: 70-110 81-Hdg-463708:03 Basic Metabolic Profile (BMP) Comments: Order Date: 05/01/17Order Info: 0667-1 - *BMPComments: Reason:[facility] [address] [place], [address] GAP 5 (Normal) Range: 5-15 CO2 28.0 [...] 7-18 GLU 64 mg/dL (Abnormal) Range: 70-110 23-Clu-941826:16 Renal function Panel (76345) Comments: PATIENT NOT FASTINGPERFORMED BY: [facility] CenterIyjyoo1648 [facility] [id number] Albumin, Serum 4.3 g/dL (Normal) Range: 3.5-4.8 [...] Glucose, Serum 91 mg/dL (Normal) Range: 65-99 00-Iqy-91923:15 Urinalysis, Complete Comments: Order Date: 03/31/17How was Urine Obtained? 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, [address] MUCUS, URINE 0 SEEN {/hpf} [...] CLARITY Sl. Cloudy (Normal) COLOR Yellow (Normal) 36-Gsm-48519:45 Lactic Acid Comments: Yes/No query for Sepsis Lactate Rule [facility] [address] [place], [address] LACTIC ACID 0.8 mmol/L (Normal) Range: 0.4-2.0 :39 BNP,B-Type NATRIURETIC PEPTIDE Comments: [facility] [address] [facility] [place], [address] B-TYPE HUMBLE PEP 1017.0 pg/mL (Abnormal) Range: 0-100 04-Inq-32910:39 CBC W/Diff, Automated Comments: [facility] [address] [place], [address] ANISO 1+ (Normal) Absolute Lymph [...] 4.2-5.4 WBC 13.6 K/mm3 (Abnormal) Range: 4.4-11.0 18-Mvo-78638:39 Comprehensive Metabolic Profil Comments: 'TROP' Serial specimen #1, #2, #3, or #4: 1[facility] [address] [place], [address] GAP 8 (Normal) Range: 5-15 [...] Serial specimen #1, #2, #3, or #4: 1[facility] [address] [place], [place], [address] TROPONIN-I 0.06 ng/mL (Normal) Comments: TROPONIN-I EXPECTED VALUES <0.05 NEGATIVE 0.06 - 0.59 AT RISK OF RI > OR = 0.60 SUGGEST RI :03 Bedside Glucose Comments: [facility] LaboratoryPoint of Oxyx[address] [place] [address] BEDSIDE GLU 146 mg/dL (Abnormal) Range: 70-110 Comments: MANAGEMENT OF PATIENT CARE PER NURSING PROTOCOL 17-Ony-614090:25 Vitamin D,25 Hydroxy Comments: Order Date: 01/17/17Order Info: 0788-1 - *Hepatic Function Panel3 ORDERING DOCTORS:REINA REID ORDERED: LIVER LIPIDDR.CAITLIN ORDERD: BMPMARY CIESA ORDERED: TSH, VITD, R6JDkadsdh [facility] pital Labora [address] [place], [address] Vitamin D 25-OH 35.2 ng/mL (Normal) Comments: Vitamin D 25(OH) Status Range Deficiency <20 ng/mL (50nmol/L) Insuffciency 20 - 30 ng/mL (50 - 75 nmol/L) Sufficiency 30 - 100 ng/mL (75 - 250 nmol/L) Toxicity >100 ng/mL (>250 nmol/L) 37-Cnd-773926:20 Basic Metabolic Profile (BMP) Comments: Order Date: 01/17/17Order Info: 0788-1 - *Hepatic Function Panel3 ORDERING DOCTORS:REINA REID ORDERED: LIVER LIPIDDR.CAITLIN ORDERD: BMPMARY CIESA ORDERED: TSH, VITD, W3LNxnop Date: 01/17/17Order Info: 70786-4 - *Lipid Profile CC PCPComments: 12 hours fasting, may have water.[facility] [address] [place], [address] GAP 6 (Normal) Range: 5-15 CO2 31.0 [...] 7-18 GLU 109 mg/dL (Normal) Range: 70-110 58-Vrr-097954:20 Lipid Profile Comments: Order Date: 01/17/17Order Info: 0788- 1 - *Hepatic Function Panel3 ORDERING DOCTORS:REINA REID ORDERED: LIVER LIPIDDR.NOVY ORDERD: BMPMARY CIESA ORDERED: TSH, VITD, G3BDawmk Date: 01/17/17 Order Info: 22532-2 - *Lipid Profile CC PCPComments: 12 hours fasting, may have water.[facility] [address] [place], [place], [address] VLDL 20 mg/dL (Normal) Range: 5-40 LDL [...] 200-240 mg/dL Borderline >240 mg/dL High Risk 02-Pvu-922613:20 Liver Profile Comments: Order Date: 01/17/17Order Info: 0788- 1 - *Hepatic Function Panel3 ORDERING DOCTORS:REINA REID ORDERED: LIVER LIPIDDR.NOVY ORDERD: BMPMARY CIESA ORDERED: TSH, VITD, Y8CVezao Date: 01/17/17 Order Info: [id number] - *Lipid Profile CC PCPComments: 12 hours fasting, may have water.[facility] [address] [place], [place], [address] D BILI 0.24 mg/dL (Normal) Range: 0.00-0.30 T BILI 0.60 mg/dL (Normal) Range: 0.20-1.00 ALT 27 U/L (Normal) Range: 12-78 ALK P 84 U/L (Normal) Range: 45-117 AST 27 U/L (Normal) Range: 15-37 GLOB 3.7 g/dL (Abnormal) Range: 2.3-3.5 ALB 3.8 g/dL (Normal) Range: 3.4-5.0 T PROT 7.5 g/dL (Normal) Range: 6.4-8.2 37-Cjk-855810:20 T4 Free Direct Comments: Order Date: 01/17/17Order Info: 0788- 1 - *Hepatic Function Panel3 ORDERING DOCTORS:REINA REID ORDERED: LIVER LIPIDDR.NOVY ORDERD: BMPYUDYY CIGLENYSA ORDERED: TSH, VITD, X9WHopzx Date: 01/17/17 Order Info: 44157-1 - *Lipid Profile CC PCPComments: 12 hours fasting, may have water.[facility] [address] [place], [place], [address] T4 FREE DIRECT 1.51 ng/dL (Abnormal) Range: 0.76-1.46 60-Myj-536991:20 Thyroid Stim Hormone (TSH) Comments: Order Date: 01/17/17Order Info: 0788-1 - *Hepatic Function Panel3 ORDERING DOCTORS:REINA REID ORDERED: LIVER LIPIDDR.NOVY ORDERD: BMPMARY CIESA ORDERED: TSH, VITD, Y2QDkrin Date: 01/17/17Order Info: 33425-2 - *Lipid Profile CC PCPComments: 12 hours fasting, may have water.[facility] [address] [place], [address] TSH 3.02 {uIU/mL} (Normal) Range: 0.358-3.74 12-Wne-297964:00 Pathology Report Comments: PERFORMED BY: [facility] Lqplt31949 [facility] [id number] BY: [facility] Dermatopathology [address] [facility] [address] [id number] Information: [id number] See MATER Comments: Material submitted: .SHAVE BIOPSY OF RIGHT ABDOMENClinician provided ICD-10:L82.1Clinical history: . Note (Normal) Diagnosis:BENIGN VERRUCAL KERATOSIS.02/08/2017Electronically signed: .Gege Reece MD, DermatopathologistGross description: .SUBMITTED IN FORMALIN LABELED IRIS ARRIAGA AND IS DESIGNATEDRIGHT ABDOMEN IS A FRAGMENT OF FERGUSON TISSUE THAT MEASURES 1.4 X .8X .3 CM. THE MARGINS ARE INKED BLUE. THE SPECIMEN IS TRISECTEDAND SUBMITTED IN TOTO.XJW/BXSPathologist provided ICD-10:D23.5CPT .790177 09-Prt-388136:12 Basic Metabolic Profile (BMP) Comments: Order Date: 01/15/17Order Info: 0667-1 - *BMPComments: Reason:[facility] [address] [place], [address] GAP 5 (Normal) Range: 5-15 CO2 32.0 [...] 7-18 GLU 82 mg/dL (Normal) Range: 70-110 6-Znd-272925:04 Basic Metabolic Profile (BMP) Comments: Order Date: 01/08/17Order Info: 0667-1 - *BMPComments: Reason: BMP: 1 weekThe [facility] [address] [place], [address] GAP 11 (Normal) Range: 5-15 CO2 28.0 [...] <126 mg/dLsuggests IMPAIRED HOMEOSTASIS per A.D.A. criteria. 02-Ptv-146823:28 Lipid Profile Comments: Order Date: 06/18/16Order Info: 0788- 1 - *Hepatic Function PanelLIVER AND LIPID WERE ORDERED BY INE LEVEL ORDERED BY Date: 06/18/16Order Info: 28672-8 - *Lipid Profi le CC PCPComments: 12 hours fasting, may have water.[facility] [address] [place], [place], [address] VLDL 14 mg/dL (Normal) Range: 5-40 LDL [...] 200-240 mg/dL Borderline >240 mg/dL High Risk 05-Npr-668354:28 Liver Profile Comments: Order Date: 06/18/16Order Info: 0788- 1 - *Hepatic Function PanelLIVER AND LIPID WERE ORDERED BY ATININE LEVEL ORDERED BY Date: 06/18/16Order Info: 85710-2 - *Lipid Profi le CC PCPComments: 12 hours fasting, may have water.[facility] [address] [place], [place], [address] D BILI 0.48 mg/dL (Abnormal) Range: 0.00-0.30 T BILI 1.10 mg/dL (Abnormal) Range: 0.20-1.00 ALT 62 U/L (Normal) Range: 12-78 ALK P 94 U/L (Normal) Range: 45-117 AST 59 U/L (Abnormal) Range: 15-37 GLOB 3.3 g/dL (Normal) Range: 2.3-3.5 ALB 3.7 g/dL (Normal) Range: 3.4-5.0 T PROT 7.0 g/dL (Normal) Range: 6.4-8.2 70-Olu-832272:28 Serum Creatinine AND GFR Comments: Order Date: 06/18/16Order Info: 0788-1 - *Hepatic Function PanelLIVER AND LIPID WERE ORDERED BY ATININE LEVEL ORDERED BY Date: 06/18/16Order Info: [id number] - *Lipid i ashley SOLOMON PCPComments: 12 hours fasting, may have water.[facility] [address] [place], [place], [phone] EST GFR - AA 52 mL/min (Abnormal) Comments: GFR Calc EST GFR 43 mL/min (Abnormal) Comments: Non- GFR Calc CREAT,SERUM 1.29 mg/dL (Abnormal) Range: 0.55-1.02 Comments: The validity of the calculated GFR AND GFRAA in patients over70 years has not been determined. Clinical correlation isessential. 34-Nev-161350:36 Anticardiolipin IgA,G,M Comments: [facility] (refer to report [...] Positive: >20 - 80 High Positive: >80 36-Tki-232052:36 Comprehensive Metabolic Profil Comments: [facility] [address] [place], [place], [address] GAP 4 (Abnormal) Range: 5-15 CO2 26.0 [...] 7-18 GLU 103 mg/dL (Normal) Range: 70-110 15-Vkk-269779:36 Fact V Leiden Mutation Comments: [facility] (refer to report for specific site)refer to report for address and phone number COMMENT (Normal) Comments: Comment:Genetic counselors are available for health care providersto discuss results at [phone]).Methodology:DNA analysis of the Factor V gene was performed byallele-specific PCR. The d iagnostic sensitivity andspecificity is >99% for both. Molecular-based testing ishighly accurate, but as in any laboratory test, diagnosticerrors may occur. All test results must be combined withclin ical information for the most accurate interpretation.This test was developed and its performance characteristicsdetermined by [facility]. It has not been cleared or approvedby the Food and Drug Administra tion.References:Nicholas Armijo (1995). Clin Lab Med 16:169-186.Raul Cano, PhD, Cinthya May, PhD, Wilbur Clemente, PhD, Marly Wen MTammiSTammi, PhD, Lilia Way, PhD, Kaia Reynaga, PhD, Richard Juarez PhD, [facility] FACTOR V LEIDEN (Normal) Comments: Result: [...] in the workup for venous thrombosis include [id number] mutation in the factor II (prothrombin) gene,protein S and C deficiency, and antithrombin deficiencies.Anticardiolipin antibody and lupus 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 an alysismay be appropriate for certain patients, as well ashomocysteine levels.Contact your local [facility] for information on how to orderadditional testing if desired. 67-Vej-891587:36 Factor II, DNA Analysis Comments: [facility] (refer to report for specific site)refer to report for address and phone number COMMENT (Normal) Comments: Additional Information:Genetic Counselors are available for health care providersto discuss results at [phone]).Methodology:DNA analysis of the Factor II gene was [...] Drug Administration.Poort SR, et al. Blood. 1996; 88:3932-5117.Robert GUTIÉRREZ. Circulation. 2004; 110:e15-e18.Stanislav I, et al. Arterioscler Thromb Vasc Biol. 1999;19:700-703.Raul Cano, Ph D, Cinthya May, PhD, Wilbur Clemente, PhD, Marly Wen M.S., PhD, Lilia Way, PhD, Kaia Reynaga, PhD, Richard Juarez, PhD, [facility] COMMENT (Normal) Comments: Comment:A point mutation ([id number]) in the factor II (prothrombin)gene is the [...] individual mutations. This assay detects onlythe prothrombin [id number] mutation and does not measuregenetic abnormalities elsewhere in the genome. Otherthrombotic r isk factors may be pursued through systematicclinical laboratory analysis. These factors include lulE864B (Leiden) mutation in the Factor V gene, plasmahomocysteine levels, as well as testing for defici encies ofantithrombin III, protein C and protein S. FACTOR II,DNA (Normal) Comments: Factor II, DNA Analysis NEGATIVE No mutation identified. 54-Snp-527701:36 Partial Thromboplast Time Comments: [facility] [address] [place], [place], [address] PTT 28.3 s (Normal) Range: 24.1-36.2 55-Xlo-988632:36 Prothrombin Time w/INR Comments: [facility] [address] [place], [place], [address] INR 1.3 (Normal) PROTIME 15.5 s (Abnormal) Range: 11.7-14.9 :39 CBC W/Diff, Automated Comments: Order Date: 12/02/16Order Info: 0184-1 - CBCDComments: coipy to Dr. jessie armendariz statOrder Date: 12/02/16Order Info: 0184-1 - CBCDComments: coipy to Dr. jessie armendariz statOrder Date: 12/02/16O rder Info: 0788-1 - LIVERComments: to stat copy to Dr. natalie armendarizThe [facility] [address] [place], [address] Absolute Lymph 1.13 {X10_3/ul} (Normal) Range: 0.83-4.51 [...] 4.2-5.4 WBC 8.8 K/mm3 (Normal) Range: 4.4-11.0 06-One-44480:39 Liver Profile Comments: Order Date: 12/02/16Order Info: 0788-1 - LIVEROrder Date: 12/02/16Order Info: 0788-1 - LIVERComments: to stat copy to Dr. estrada [facility] [address] [place], [place], [address] D BILI 0.28 mg/dL (Normal) Range: 0.00-0.30 T BILI 0.80 mg/dL (Normal) Range: 0.20-1.00 ALT 33 U/L (Normal) Range: 12-78 ALK P 71 U/L (Normal) Range: 45-117 AST 30 U/L (Normal) Range: 15-37 GLOB 2.9 g/dL (Normal) Range: 2.3-3.5 ALB 3.8 g/dL (Normal) Range: 3.4-5.0 T PROT 6.7 g/dL (Normal) Range: 6.4-8.2 74-Upv-577951:38 URINE DAR CULTURE (NOREEN Comments: PATIENT NOT FASTINGPERFORMED BY: [facility] Cmkqrd2356 [facility] [id number] Information: SRC:UC COL COUNT) (06093) Antimicrobial MIHEAD (Normal) Comments: S = Susceptible; [...] Colonies/mL (Abnormal) Urine Final report Culture,Comprehensive (Abnormal) 61-Ycq-98134:33 CBC W/Diff, Automated Comments: Order Date: 10/31/16Order Info: 0184-1 - CBCDOrder Info: [id number] - SEDOrder Date: 10/31/16Order Info: 0184-1 - CBCDOrder Info: 80522-3 - SEDOrder Date: 10/31/16Order Info: 3040-3 - LIPASEW [facility] [address] [place], [address] Absolute Lymph 1.10 {X10_3/ul} (Normal) Range: 0.83-4.51 [...] 4.2-5.4 WBC 11.1 K/mm3 (Abnormal) Range: 4.4-11.0 78-Clg-61450:33 Comprehensive Metabolic Profil Comments: Order Date: 10/31/16Order Info: 0786-1 - CMPOrder Info: 1798-8 - AMYOrder Info: 3040-3 - LIPASEOrder Date: 10/31/16Order Info: 3040-3 - LIPASEComments: all [facility] [address] [place], [address] GAP 10 (Normal) Range: 5-15 CO2 26.0 [...] 7-18 GLU 86 mg/dL (Normal) Range: 70-110 69-Uhh-16831:33 Erythrocyte Sed Rate Comments: Order Date: 10/31/16Order Info: 0184-1 - CBCDOrder Info: 46398-6 - SEDOrder Date: 10/31/16Order Info: 0184-1 - CBCDOrder Info: 17907-5 - SEDOrder Date: 10/31/16Order Info: 3040-3 - LIPASEW [facility] [address] [place], [address] SED RATE 12 mm/h (Normal) Range: 0-30 :33 Lipase (14133) Comments: Order Date: 10/31/16Order Info: 0786- 1 - CMPOrder Info: 1798-8 - AMYOrder Info: 3040-3 - LIPASEOrder Date: 10/31/16Order Info: 3040-3 - LIPASEComments: all [facility] [address] [place], [address] LIPASE 216 U/L (Normal) Range: 73-393 :33 Amylase (09935) Comments: Order Date: 10/31/16Order Info: 0786- 1 - CMPOrder Info: 1798-8 - AMYOrder Info: 3040-3 - LIPASEOrder Date: 10/31/16Order Info: 3040-3 - LIPASEComments: all [facility] [address] [place], [address] QUENTIN 56 U/L (Normal) Range: 25-115 11-Hhp-17725:45 Urinalysis, Office (47986) UA - LEUKOCYTE ESTERASE Negative (Normal) UA - NITRITE Negative (Normal) URINE UROBILINGN NOREEN TIMED Normal mg/dL (Normal) UA - PROTEIN Negative mg/dL (Normal) UA - PH 6 (Abnormal) UA - BLOOD Non Hemolyzed Trace (Normal) UA - SPECIFIC GRAVITY 1.015 (Normal) UA - KETONES Negative mg/dL (Normal) UA - BILIRUBIN Negative (Normal) UA - GLUCOSE Negative (Normal) 71-Pni-385674:00 Pathology Report Comments: PERFORMED BY: [facility] Cyto Snhnt71535 [facility] [id number] Information: [id number] See MATER Comments: Material submitted: .SHAVE BIOPSY [...] ARE 4 PIECES TOTAL./CORCOR/CORPathologist provided ICD-10:L82.1, B07.8CPT .426378 0-Lnq-036830:50 Basic Metabolic Profile (BMP) Comments: DR TUCKER IS ORDERING THE BMPOrder Date: 06/28/16OV Order #: [id number]-Hyde [facility] Hospital [address] [place], [address] GAP 9 (Normal) Range: 5-15 CO2 28.0 [...] 7-18 GLU 89 mg/dL (Normal) Range: 70-110 5-Vng-809878:50 Lipid Profile Comments: DR TUCKER IS ORDERING THE BMPOrder Date: 06/28/16OV Order #: [id number] [facility] Of [facility] Center [address] [place], [place], [address] VLDL 14 mg/dL (Normal) Range: 5-40 LDL [...] 200-240 mg/dL Borderline >240 mg/dL High Risk 4-Ydr-195150:50 Liver Profile Comments: DR TUCKER IS ORDERING THE BMPOrder Date: 06/28/16OV Order #: [id number] [facility] Of [facility] [address] [place], [address] D BILI 0.11 mg/dL (Normal) Range: 0.00-0.30 [...] ORDERING THE BMPOrder Date: 06/28/16 Order #: [id number] [facility] Of [facility] [address] [place], [place], [address] T4 THYROXIN 12.8 ug/dL (Normal) Range: 4.8-13.9 1-Vao-194265:50 Thyroid Stim Hormone (TSH) Comments: DR TUCKER IS ORDERING THE BMPOrder Date: 06/28/16 Order #: [id number] [facility] Of [facility] Center [address] [place], [place], [address] TSH 2.26 {uIU/mL} (Normal) Range: 0.358-3.74 66-Vsd-068340:26 URINE DAR CULTURE-IDENTIFICATN Comments: PATIENT NOT FASTINGPERFORMED BY: [facility]CoCl[facility] CenterBqoorx9234 [facility] [id number] Information: SRC:ANDREW ([id number]) Result 1 ECV (Abnormal) Comments: Escherichia coli, [...] report Culture,Comprehensi (Abnormal) ve :38 Urinalysis, Office (68434) UA - LEUKOCYTE ESTERASE Negative (Normal) UA - NITRITE Negative (Normal) URINE UROBILINGN NOREEN TIMED Normal mg/dL (Normal) UA - PROTEIN Negative mg/dL (Normal) UA - PH 5 (Abnormal) UA - BLOOD Hemolyzed Trace (Normal) UA - SPECIFIC GRAVITY 1.010 (Normal) UA - KETONES Negative mg/dL (Normal) UA - BILIRUBIN Negative (Normal) UA - GLUCOSE Negative (Normal) 86-Axh-098253:02 Comprehensive Metabolic Profil Comments: CMP IS [facility] [address] [place], [address] GAP 8 (Normal) Range: 5-15 [...] 7-18 GLU 85 mg/dL (Normal) Range: 70-110 63-Nye-274819:02 T4 Total, Thyroxin Comments: [facility] [address] [place], [address] T4 THYROXIN 13.1 ug/dL (Normal) Range: 4.8-13.9 61-Jnu-550426:02 Thyroid Stim Hormone (TSH) Comments: CMP IS FOR [facility]NEYMcC[facility] [address] [place], [address] TSH 1.34 {uIU/mL} (Normal) Range: 0.358-3.74 :25 COLON BIOPSY (CHOOSE See Note (Normal) Comments: [facility] [address] [place], [address] SITE) Comments: Patient: IRIS ARRIAGA : 1940 (76/F) Acct Num: [id number] Phys: Clifford Gifford Unit Num: [id number] Loc: EN Specimen: [id number] Received: 01/30/16 - 50 Spec Type: COLON BX TISSUES TISSUES: GROSS DESCRIPTION Received is one container labeled with the patient name and designated mid ascending polyp. The specimen consists of two irregular fragments of light tansoft tissue that in aggregate measure 0.3 x 0.2 x 0.1 cm. The specimen is totally submitted in one cassette. / SJ:juan j 01/30/16 TC:5 CPT:18307 HEADER OPERATION: Colonoscopy PRE-OP DI AGNOSIS: Screening TISSUE SUBMITTED: Mid ascending polyp MICROSCOPIC DESCRIPTION Slides are reviewed. MICROSCOPIC DIAGNOSIS Mid ascending colon polyp, biopsy: Fragments of tubular adenoma. AM:juan j 01/31/[address] [facility] 01/31/16 <signature on file> 91-Exd-307700:12 Basic Metabolic Profile (BMP) Comments: ORDERED BMPDR.REINA ORDERED TSH T4 LIPID [facility] [address] [place], [address] GAP 6 (Normal) Range: 5-15 CO2 27.0 [...] 7-18 GLU 78 mg/dL (Normal) Range: 70-110 40-Com-345924:12 Lipid Profile Comments: ORDERED BMPDR.MOODISPAW ORDERED TSH T4 LIPID [facility] [address] [place], [address] VLDL 15 mg/dL (Normal) Range: [...] 200-240 mg/dL Borderline >240 mg/dL High Risk 83-Sdm-747763:12 Liver Profile Comments: ORDERED BMPDR.MOODISPAW ORDERED TSH T4 LIPID [facility] [address] [place], [address] D BILI 0.17 mg/dL (Normal) Range: 0.00-0.30 T BILI 0.50 mg/dL (Normal) Range: 0.20-1.00 ALT 37 U/L (Normal) Range: 12-78 ALK P 68 U/L (Normal) Range: 50-136 AST 26 U/L (Normal) Range: 15-37 GLOB 3.8 g/dL (Abnormal) Range: 2.3-3.5 ALB 3.5 g/dL (Normal) Range: 3.4-5.0 T PROT 7.3 g/dL (Normal) Range: 6.4-8.2 72-Mrt-354951:12 T4 Total, Thyroxin Comments: ORDERED BMPDR.DELIOJOCELINE ORDERED TSH T4 [facility] [address], [place], [address] T4 THYROXIN 14.3 ug/dL (Abnormal) Range: 4.8-13.9 18-Mez-636093:12 Thyroid Stim Hormone (TSH) Comments: ORDERED BMPDR.DELIOISPAW ORDERED TSH T4 [facility] [address], [place], [address] TSH 2.32 {uIU/mL} (Normal) Range: 0.358-3.74 04-Zgv-19810:37 Rapid Flu (90402 x 2) Influenza A Ag neg (Normal) 44-Uwi-846431:28 Metabolic Panel, Basic Comments: PATIENT NOT FASTINGPERFORMED BY: [facility] Jdgkqw6418 [facility] [id number] ([id number]) Calcium, Serum 8.7 mg/dL (Normal) Range: 8.7-10.3 [...] Glucose, Serum 70 mg/dL (Normal) Range: 65-99 81-Rbg-532202:28 CBC (Auto) (89276) Comments: PATIENT NOT FASTINGPERFORMED BY: [facility]CoCl[facility] CenterSnapbx0303 [facility] [id number] Information: [id number] Platelets 224 {x10E3/uL} (Normal) Range: 150-379 RDW 14.8 % (Normal) Range: 12.3-15.4 MCHC 33.0 g/dL (Normal) Range: 31.5-35.7 MCH 31.9 pg (Normal) Range: 26.6-33.0 MCV 97 fL (Normal) Range: 79-97 Hematocrit 39.4 % (Normal) Range: 34.0-46.6 Hemoglobin 13.0 g/dL (Normal) Range: 11.1-15.9 RBC 4.08 {x10E6/uL} (Normal) Range: 3.77-5.28 WBC 8.1 {x10E3/uL} (Normal) Range: 3.4-10.8 38-Tqh-160832:51 URINE DAR CULTURE-IDENTIFICATN Comments: PATIENT NOT FASTINGPERFORMED BY: [facility]CoCl[facility] CenterWygwux2917 [facility] [id number] Information: [id number] ([id number]) Result 1 MUG (Normal) Comments: Mixed urogenital flora2,000 Colonies/mL Urine Culture,Comprehensive Final report (Normal) 94-Rho-17651:28 Magnesium Comments: [facility] [address] [place], [address] MG 2.1 mg/dL (Normal) Range: 1.8-2.4 48-Kce-86016:28 Potassium Comments: [facility] [address] [place], [address] K 5.0 mmol/L (Normal) Range: 3.5-5.1 46-Ctk-756841:12 LIPASE (94674) Comments: Test(s) Potassium, Serum called to Gina Vergara on 11/21/2015 at 03:54 ESTPATIENT NOT FASTINGPERFORMED BY: [facility] Alma6370 [facility] [id number] Lipase, Serum 61 U/L (Abnormal) Range: 0-59 82-Bew-394526:12 AMYLASE (16030) Comments: Test(s) Potassium, [facility] on 11/21/2015 at 03:54 ESTPATIENT NOT FASTINGPERFORMED BY: [facility] WarsClara Maass Medical CenterJfrggd1269 [facility] [id number] Amylase, Serum 84 U/L (Normal) Range: 31-124 57-Pso-777856:20 Urinalysis, Office (88702) UA - LEUKOCYTE ESTERASE Trace (Normal) UA - NITRITE Negative (Normal) URINE UROBILINGN NOREEN TIMED Normal mg/dL (Normal) UA - PROTEIN 100 mg/dL (Normal) UA - PH 6.0 (Normal) Comments: 5.5 UA - BLOOD Negative (Normal) UA - SPECIFIC GRAVITY 1.030 (Abnormal) UA - KETONES 15 mg/dL (Abnormal) UA - BILIRUBIN Moderate (Normal) UA - GLUCOSE Negative (Normal) 79-Jze-799300:12 Metabolic Panel, Basic Comments: Test(s) Potassium, Serum [facility] on 11/21/2015 at 03:54 ESTPATIENT NOT FASTINGPERFORMED BY: [facility] WarsClara Maass Medical CenterBanvom1079 [facility] [id number] ([id number]) Calcium, Serum 8.9 mg/dL (Normal) Range: 8.7-10.3 [...] Comments: Specimen received hemolyzed. Clinical correlation indicated. 78-Vak-184311:12 CBC WITH MANUAL DIFF Comments: Test(s) Potassium, Serum called to [employer] on 11/21/2015 at 03:54 ESTPATIENT NOT FASTINGPERFORMED BY: MISHA [facility] Owaibh7226 [facility] [id number] Information: [id number] ([id number]) Immature Grans (Abs) 0.0 {x10E3/uL} (Normal) Range: [...] 3.77-5.28 WBC 16.1 {x10E3/uL} (Abnormal) Range: 3.4-10.8 1-Skz-388680:50 Urinalysis, Complete Comments: Order Date: 11/15/15How was Urine Obtained? [employer] SALES REPRESENTATIVE TO [facility] [address] [place], [address] HYALINE CAST 5-10 SEEN {/lpf} [...] (Normal) CLARITY Clear (Normal) COLOR Yellow (Normal) 0-Fva-712815:00 Basic Metabolic Profile (BMP) Comments: [facility] [address] [place], [place], [address] GAP 6 (Normal) Range: 5-15 CO2 24.0 [...] 7-18 GLU 88 mg/dL (Normal) Range: 70-110 9-Msw-553129:00 CBC W/Diff, Automated Comments: [facility] [id number] [place], [address] SMEAR COMMENT SCANNED (Normal) Absolute [...] 4.2-5.4 WBC 16.9 K/mm3 (Abnormal) Range: 4.4-11.0 [id number]-[id number]:00 Lipase Comments: [facility] [id number] [place], [address] LIPASE 446 U/L (Abnormal) Range: 73-393 [id number]-Dre-[id number]:00 Liver Profile Comments: [facility] [id number] [place], [place], [id number] D BILI 0.06 mg/dL (Normal) Range: 0.00-0.30 T BILI 0.40 mg/dL (Normal) Range: 0.20-1.00 ALT 94 U/L (Abnormal) Range: 12-78 ALK P 66 U/L (Normal) Range: 50-136 AST 76 U/L (Abnormal) Range: 15-37 Comments: Moderate Hemolysis, Result may be falsely increased. GLOB 4.0 g/dL (Abnormal) Range: 2.3-3.5 ALB 3.3 g/dL (Abnormal) Range: 3.4-5.0 T PROT 7.3 g/dL (Normal) Range: 6.4-8.2 [id number]-[id number]:00 Thyroid Stim Hormone (TSH) Comments: [facility] [id number] [place], [address] TSH 1.12 {uIU/mL} (Normal) Range: 0.358-3.74 [id number]-[id number]:18 Thyroid Stim Hormone (TSH) Comments: [facility] [address] [place], [place], [address] TSH 0.59 {uIU/mL} (Normal) Range: 0.358-3.74 28-Lkv-686366:18 Pathology Report Comments: PERFORMED BY: KWCYT [facility] Ythky07071 [facility] [id number] BY: INDYL [facility] Doidgvitvwud50[address] [place] [address] [id number] BY: LX [facility] Hsxiauh36018 [facility] [id number] Information: [id number] See MATER Comments: Material submitted: .SHAVE CHESTClinician [...] BISECTED AND SUBMITTED IN TOTO.XJW/TMZPathologist provided ICD-10:L57.0CPT .972080 91-Dcb-325607:40 Basic Metabolic Profile (BMP) Comments: 'TROP' Serial specimen #1, #2, #3, or #4: [address] [place] [address] Csointxnqo8871 [place], [address] GAP 7 (Normal) Range: 5-15 CO2 27.0 [...] 7-18 GLU 76 mg/dL (Normal) Range: 70-110 14-Biv-497601:40 BNP,B-Type NATRIURETIC PEPTIDE Comments: [facility] Z[address]avv[address] [place], [place], [address] B-TYPE HUMBLE PEP 406.4 pg/mL (Abnormal) Range: 0-100 17-Yuu-352668:40 CBC W/Diff, Automated Comments: [facility] T[address]xhgua[address] [place], [place], [address] Absolute Lymph 1.25 {X10_3/ul} (Normal) Range: 0.83-4.51 [...] 4.2-5.4 WBC 9.2 K/mm3 (Normal) Range: 4.4-11.0 52-Fkl-103069:40 Troponin-I Comments: 'TROP' Serial specimen #1, #2, #3, or #4: [facility] K[address]qdrjwbva9838 [place], [address] TROPONIN-I 0.03 ng/mL (Normal) Comments: TROPONIN-I EXPECTED VALUES <0.05 NEGATIVE 0.06 - 0.59 AT RISK OF RI > OR = 0.60 SUGGEST RI 04-Pst-602065:25 Urinalysis, Complete Comments: Order Date: 08/09/15How was Urine Obtained? CLEAN CATCHThe [facility] Ccxmrctsyd8767Mer[place], [address] MUCUS, URINE 0 SEEN {/hpf} [...] (Normal) CLARITY Clear (Normal) COLOR Straw (Normal) 63-Llj-267693:26 Basic Metabolic Profile (BMP) Comments: 'TROP' Serial specimen #1, #2, #3, or #4: [address] [place] [address] Pypkb[address]jyug3864 [address] Christensen[place], [place], [address] GAP 4 (Abnormal) Range: 5-15 CO2 29.0 [...] 7-18 GLU 66 mg/dL (Abnormal) Range: 70-110 16-Brm-370244:26 CBC W/Diff, Automated Comments: [facility] Q[address]qxfjyrak[address] [place], [place], [address] SMEAR COMMENT SCANNED (Normal) Absolute Lymph 2.04 [...] 4.2-5.4 WBC 18.6 K/mm3 (Abnormal) Range: 4.4-11.0 43-Nbx-126809:26 Prothrombin Time w/INR Comments: [facility] Bcuiaoasha1274 [address] [place], [address] INR 1.1 (Normal) PROTIME 14.0 s (Normal) Range: 11.7-14.9 79-Vry-482535:26 Troponin-I Comments: 'TROP' Serial specimen #1, #2, #3, or #4: 1[facility] Lcdbbnuaxe67[address] [place], [address] TROPONIN-I < 0.02 ng/mL (Normal) Comments: TROPONIN-I EXPECTED VALUES <0.05 NEGATIVE 0.06 - 0.59 AT RISK OF RI > OR = 0.60 SUGGEST RI 09-Kuf-428180:02 Bilirubin, Direct Comments: ORDERED LIPID,LIVERDRCLOVER ORDERED CBCD,TSH,LIPID,CMP,[facility] Xdykkgemgg9[address] [place], [address] D BILI 0.15 mg/dL (Normal) Range: 0.00-0.30 53-Dry-000154:02 CBC W/Diff, Automated Comments: [facility] Xvfffzdiwp5[address] [place], [address] Absolute Lymph 0.99 {X10_3/ul} (Normal) Range: 0.83-4.51 [...] 4.2-5.4 WBC 7.5 K/mm3 (Normal) Range: 4.4-11.0 21-Bnw-509492:02 Comprehensive Metabolic Comments: ORDERED LIPID,LIVERDRCLOVER ORDERED CBCD,TSH,LIPID,CMP,[facility] Xjnpmyuqym3116 [place], [address] Profil GAP 8 (Normal) Range: 5-15 CO2 [...] 7-18 GLU 80 mg/dL (Normal) Range: 70-110 52-Wja-553608:02 Lipid Profile Comments: ORDERED LIPID,LIVERDRCLOVER ORDERED CBCD,TSH,LIPID,CMP,[facility] [address]vltarpiai39[address] [place], [address] VLDL 18 mg/dL (Normal) Range: [...] 200-240 mg/dL Borderline >240 mg/dL High Risk 41-Ana-204146:02 Thyroid Stim Hormone Comments: ORDERED LIPID,LIVERDRCLOVER ORDERED CBCD,TSH,LIPID,CMP,[facility] Xhnkdnapat9[address] [place], [address] (TSH) TSH 1.37 {uIU/mL} (Normal) Range: 0.358-3.74 62-Rpi-072931:02 Urinalysis, Complete Comments: How was Urine Obtained? [facility] K[address]nehedbxz95[address] [place], [address] MUCUS, URINE 0 SEEN {/hpf} [...] (Normal) CLARITY Clear (Normal) COLOR Straw (Normal) 94-Mxy-710979:40 Basic Metabolic Profile (BMP) Comments: REDRAW. PREVIOUS SPECIMEN REJECTED DUE TOHEMOLYSIS. 06/06/15 1526 Blanca De La Cruz.[facility] Dmzjhzytao4642 [place], [place], [address] GAP 6 (Normal) Range: 5-15 CO2 28.0 [...] <126 mg/dLsuggests IMPAIRED HOMEOSTASIS per A.D.A. criteria. 94-Kjn-257051:10 CBC W/Diff, Automated Comments: [facility] U[address]jwtfm[address] [place], [place], [address] Absolute Lymph 1.33 {X10_3/ul} (Normal) Range: 0.83-4.51 [...] Panel Comments: PATIENT NOT FASTINGPERFORMED BY: [facility] Kcwygi5043 [facility] [id number] Information: [id number] (89948) Albumin, Serum 3.6 g/dL (Normal) Range: 3.5-4.8 [...] (Abnormal) Range: 65-99 Comments: Client Requested Flag 41-Lfb-728334:57 CK-MB Quantitative and Index Comments: Serial Specimen #1, #2 or #3? 2Comments: Should be drawn 2H after initial Troponin obtained'TROP' Serial specimen #1, #2, #3, or #4: 2Test performed at:[facility] [address] [place] [address] CPKMB 1.1 ng/mL (Normal) Range: 0.0-5.0 Comments: CK-MB and RI Interpretation MB Relative Index Non-AMI <or= 5 NA Indeterminate > 5 <or= 4 AMI > 5 > 4 CPK TOTAL 48 U/L (Normal) Range: 26-192 26-Psk-600368:57 Troponin-I Comments: Serial Specimen #1, #2 or #3? 2Comments: Should be drawn 2H after initial Troponin obtained'TROP' Serial specimen #1, #2, #3, or #4: 2Test performed at:[address] [place] [address] TROPONIN-I < 0.02 ng/mL (Normal) Comments: TROPONIN-I EXPECTED VALUES <0.05 NEGATIVE 0.06 - 0.59 AT RISK OF RI > OR = 0.60 SUGGEST RI 73-Ebp-175202:33 Comprehensive Metabolic Profil Comments: Test performed at:[facility] [address] [place] [address] GAP 6 (Normal) Range: 5-15 [...] Comments: Please note revised CREATININE reference range urjcnhyxg78/22/2015. BUN 35 mg/dL (Abnormal) Range: 7-18 GLU 53 mg/dL (Abnormal) Range: 70-110 27-Psy-425982:33 CRP Comments: Test performed at:[facility] [address] [place] [address] C-REACTIVE PROT < 2.90 mg/L (Normal) Range: 0.0-3.0 Comments: C-Reactive Protein (CRP) provides useful information for thediagnosis, therapy and monitoring of inflammatory processesand associated diseases. For the evaluation of Relative Riskfor Cardiovascular Dise ase, a High Sensitivity CRP (HSCRP)should be ordered. 08-Gap-009409:33 Erythrocyte Sed Rate Comments: Test performed at:[facility] [address] [place] [address] SED RATE 7 mm/h (Normal) Range: 0-30 81-Wmz-013549:38 URINE DAR CULTURE-NOREEN COL Comments: PATIENT NOT FASTINGPERFORMED BY: MISHA [facility] Xhvokd3838 [address] Man [facility] [place] [id number] Information: SRC:URC [id number] COUNT (83513) Result 1 NG36 (Normal) Comments: No growth in 36 - 48 hours. Urine Culture,Comprehensive Final report (Normal) 12-Njs-232460:07 Urinalysis, Office (04448) UA - LEUKOCYTE ESTERASE Trace (Normal) UA - NITRITE Negative (Normal) URINE UROBILINGN NOREEN TIMED 2 mg/dL (Normal) UA - PROTEIN Negative mg/dL (Normal) UA - PH 5.0 (Normal) UA - BLOOD Negative (Normal) UA - SPECIFIC GRAVITY 1.015 (Normal) UA - KETONES Small mg/dL (Normal) UA - BILIRUBIN Negative (Normal) UA - GLUCOSE Negative (Normal) 08-Feb-20159:39 Pathology Report Comments: PERFORMED BY: TRAKLOKCYT [facility] Ggjqg92249 [facility] [id number] BY: [facility] Dermatopathology Lpqfzuz241 [address] [id number] Information: [id number] See MATER Comments: Material submitted: .SHAVE BIOPSY [...] HOLOGIC CORRELATIONIS RECOMMENDED.02/13/2015Electronically signed: .Gege Reece MD, [place] topathologistGross description: .RECEIVED IS A CONTAINER LABELED IRIS ARRIAGA AND DESIGNATEDUPPER LESION ON CHEEK. IN FORMALIN IS A FERGUSON TISSUE MEASURING 4 X4 X 1 MM. IT IS INKED PURPLE, BISECTED, AND BOTH HALVES ARESUBMITTED IN A SINGLE CASSETTE.COR/BXSPathologist provided ICD-9:686.9, 682.0CPT .106476, 659711, 037404 28-Aes-811558:29 T4 Total, Thyroxin Comments: PER PT ONLY TSH AND T4 TODAYTest performed at:[facility] [address] [place] [address] T4 THYROXIN 13.2 ug/dL (Normal) Range: 4.8-13.9 24-Bws-452134:29 Thyroid Stim Hormone (TSH) Comments: PER PT ONLY TSH AND T4 TODAYTest performed at:[facility] [address] [place] [address] TSH 3.74 {uIU/mL} (Normal) Range: 0.358-3.74 36-Tmk-326587:17 URINE DAR CULTURE-NOREEN COL Comments: PATIENT NOT FASTINGPERFORMED BY: [facility] Yyumev8615 [facility] [id number] Information: SRC: URINE COUNT ([id number]) Result 1 NG36 (Normal) Comments: No growth in 36 - 48 hours. Urine Culture,Comprehensive Final report (Normal) 16-Mcq-735885:48 Urinalysis, Office (05164) UA - LEUKOCYTE ESTERASE Negative (Normal) UA - NITRITE Negative (Normal) URINE UROBILINGN NOREEN TIMED Normal mg/dL (Normal) UA - PROTEIN Negative mg/dL (Normal) UA - PH 6.0 (Normal) Comments: 5.5 UA - BLOOD Negative (Normal) UA - SPECIFIC GRAVITY 1.010 (Normal) UA - KETONES Negative mg/dL (Normal) UA - BILIRUBIN Negative (Normal) UA - GLUCOSE Negative (Normal) 64-Szz-109401:31 Basic Metabolic Profile (BMP) Comments: Test performed at:[facility] [address]ibmpfd[address] [place], [place] [address] GAP 5 (Normal) Range: 5-15 CO2 27.0 mmol/L (Normal) Range: 21.0-32.0 CL 103 mmol/L (Normal) Range: 98-107 K 4.8 mmol/L (Normal) Range: 3.5-5.1 NA 135 mmol/L (Abnormal) Range: 136-145 CA 8.7 mg/dL (Normal) Range: 8.5-10.1 BUN/CRE 16.4 {RATIO} (Normal) Range: 10-20 CREAT,SERUM 1.1 mg/dL (Abnormal) Range: 0.6-1.0 BUN 18 mg/dL (Normal) Range: 7-18 GLU 89 mg/dL (Normal) Range: 70-110 13-Nfy-745148:31 Lipid Profile Comments: Test performed at:[facility] [address]qs[address] [place] [address] VLDL 22 mg/dL (Normal) Range: [...] 200-240 mg/dL Borderline >240 mg/dL High Risk 39-Ube-390392:31 Liver Profile Comments: Test performed at:[facility] Z[address]slsfxva5[address] [place] [address] D BILI 0.10 mg/dL (Normal) Range: 0.00-0.30 T BILI 0.30 mg/dL (Normal) Range: 0.00-4.00 ALT 35 U/L (Normal) Range: 12-78 ALK P 85 U/L (Normal) Range: 50-136 AST 38 U/L (Abnormal) Range: 15-37 GLOB 3.6 g/dL (Normal) Range: 2.7-4.2 ALB 3.7 g/dL (Normal) Range: 3.4-5.0 T PROT 7.3 g/dL (Normal) Range: 6.4-8.2 64-Jfh-949173:31 T4 Total, Thyroxin Comments: Test performed at:[facility] [address] [place] [address] T4 THYROXIN 14.9 ug/dL (Abnormal) Range: 4.8-13.9 :31 Thyroid Stim Hormone (TSH) Comments: Test performed at:[facility] [address] [place] [address] TSH 2.32 {uIU/mL} (Normal) Range: 0.358-3.74 :30 CBC W/Diff, Automated Comments: Test performed at:[facility] [address] [place] [address] Absolute Lymph 1.12 {X10_3/ul} (Normal) [...] 4.2-5.4 WBC 8.8 K/mm3 (Normal) Range: 4.4-11.0 72-Mzb-699328:30 Urinalysis, Complete Comments: DR HUANG LIVER LIPID TSH T4 ONLYHow was Urine Obtained? CLEAN CATCHTest performed at:[facility] Niqnmqzrai3724 [facility] [place] [address] HYALINE CAST 0-5 SEEN {/lpf} [...] CLARITY Sl. Cloudy (Normal) COLOR Yellow (Normal) 34-Znj-668939:09 CBC W/Diff, Automated Comments: Test performed at:[facility] Jsyvfelplp2892 [facility] [place] [address] Absolute Lymph 0.85 {X10_3/ul} (Normal) [...] 4.2-5.4 WBC 8.7 K/mm3 (Normal) Range: 4.4-11.0 27-Uqs-786912:09 Comprehensive Metabolic Profil Comments: 'TROP' Serial specimen #1, #2, #3, or #4: 1Test performed at:[facility] [address]bmtd4[address] [place], [place] [address] GAP 5 (Normal) Range: 5-15 CO2 27.0 [...] <126 mg/dLsuggests IMPAIRED HOMEOSTASIS per A.D.A. criteria. 08-Zsa-079283:09 Troponin-I Comments: 'TROP' Serial specimen #1, #2, #3, or #4: 1Test performed at:[facility] [address] [place], [place] [address] TROPONIN-I < 0.02 ng/mL (Normal) Comments: TROPONIN-I EXPECTED VALUES <0.05 NEGATIVE 0.06 - 0.59 AT RISK OF RI > OR = 0.60 SUGGEST RI 63-Ahq-316420:21 Rapid Flu (33212 x 2) Influenza A Ag neg (Normal) 9-Yiy-740499:05 TSH 6.19 {uIU/mL} (Abnormal) Range: 0.358-3.74 16-Pcf-61024:54 CBCMD ANC 10.3 3/uL (Abnormal) Range: 2.0-7.7 [...] CHOL 151 mg/dL (Normal) Comments: <200 mg/dL Whbtagnob097-185 mg/dL Borderline>240 mg/dL High Risk :54 TSH 0.72 {uIU/mL} (Normal) Range: 0.358-3.74 99-Nkc-715877:37 Rapid Strep Test, Office (24415) Comments: neg Rapid Strep Test, Office Negative (Normal) 22-Tks-884962:03 DAR CULTURE-OTHER (00089) Comments: PATIENT NOT FASTINGPERFORMED BY: [facility]CoCl[facility] CenterHxvhnm0568 [facility] [id number] Information: SRC:THRT [id number] Result 1 RRF (Normal) Comments: Routine respiratory julia Upper Respiratory Culture Final report (Normal) 38-Lfv-426708:12 Urinalysis, Office (09321) UA - BILIRUBIN Negative (Normal) UA - BLOOD Hemolyzed Trace (Normal) UA - GLUCOSE Negative (Normal) UA - KETONES Negative mg/dL (Normal) UA - LEUKOCYTE ESTERASE Trace (Normal) UA - NITRITE Negative (Normal) UA - PH 6.0 (Normal) UA - PROTEIN Negative mg/dL (Normal) UA - SPECIFIC GRAVITY 1.010 (Normal) URINE UROBILINGN NOREEN TIMED 2 mg/dL (Normal) 30-Upr-835816:53 DEXA BONE DENSITY STUDY (HP) Radiology Report [...] Fink M.D.July 29, 2012 at 2:05:06 PM [id number] Signed GP/GP If you are the referring physician and would like to consult with theradiologist who provided this interpretation, please contact Aleida Osei at [phone]. If this radiologist is unavailable, youwil l be directed to another radiologist to assist. If you are a patient with a question regarding this report, pleasecontactyour referring physician directly. Professional Interpretation Provided By: [employer], Phone , These documents contain legally [...] 07/29/12 1410 Sign by: Ed Fink MD 01-Zld-565993:37 BILAT SCRN DIGITAL & CAD Radiology Report [...] Fink M.D.July 14, 2012 at 1:35:04 PM [phone] Signed GP/GP If you are the referring physician and would like to consult with theradiologist who provided this interpretation, please contact Aleida Osei at [phone]. If this radiologist is unavailable, youwill be directed to another radiologist to assist. If you are a patient with a questi on regarding this report, pleasecontactyour referring physician directly. Professional Interpretation Provided By: [employer] [place] [employer], Phone , These documents contain legally prot [...] mg/dL Comments: Order Date: 02/06/12OV Order #: [id number] ID: [id number] Comments: DX = 272.4 JLS [...] 12 hours, may have water.OV Order #: [id number] Order #: [id number] Comments: Reason:Interface Comments: DX = 427.31 [facility] 02/07/12OV Order #: [id number] Comments: DX = 428.0 [facility] 02/07/12 Range: 0.00-0.30 76-Gxp-939799:57 CMP Comments: Order Date: 02/06/12OV Order #: [id number] ID: [id number] Comments: DX = 272.4 [facility] 02/07/12Diagnosis: V58.69 - LONG-TERM USE [...] 12 hours, may have water.OV Order #: [id number] Order #: [id number] Comments: Reason:Interface Comments: DX = 427.31 [facility] 02/07/12OV Order #: [id number] Comments: DX = 428.0 [facility] 02/07/12 GAP 6 (Normal) Range: [...] 7-18 GLU 92 mg/dL (Normal) Range: 70-110 94-Wvi-908517:57 LIPID Comments: Order Date: 02/06/12OV Order #: [id number] ID: [id number] Comments: DX = 272.4 [facility] 02/07/12Diagnosis: V58.69 - LONG-TERM USE [...] 12 hours, may have water.OV Order #: [id number] Order #: [id number] Comments: Reason:Interface Comments: DX = 427.31 [facility] 02/07/12OV Order #: [id number] Comments: DX = 428.0 [facility] 02/07/12 VLDL 13 mg/dL (Normal) [...] (Normal) Comments: Order Date: 02/06/12OV Order #: [id number] ID: [id number] Comments: DX = 272.4 JLS [...] 12 hours, may have water.OV Order #: [id number] Order #: [id number] Comments: Reason:Interface Comments: DX = 427.31 J[facility] 02/07/12OV Order #: [id number] Comments: DX = 428.0 JLS 02/07/12 Range: 2.5-4.9 49-Nru-042934:57 T4 12.6 ug/dL (Normal) Comments: Order Date: 02/06/12OV Order #: [id number] ID: [id number] Comments: DX = 272.4 JLS [...] 12 hours, may have water.OV Order #: [id number] Order #: [id number] Comments: Reason:Interface Comments: DX = 427.31 [facility] 02/07/12OV Order #: [id number] Comments: DX = 428.0 [facility] 02/07/12 Range: 4.8-13.9 93-Wiy-549059:57 T4F 1.76 ng/dL (Abnormal) Comments: Order Date: 02/06/12OV Order #: [id number] ID: [id number] Comments: DX = 272.4 [facility] 02/07/12Diagnosis: V58.69 - LONG-TERM USE [...] 12 hours, may have water.OV Order #: [id number] Order #: [id number] Comments: Reason:Interface Comments: DX = 427.31 [facility] 02/07/12OV Order #: [id number] Comments: DX = 428.0 [facility] 02/07/12 Range: 0.76-1.46 94-Rpc-153067:57 TSH 2.47 {uIU/mL} (Normal) Comments: Order Date: 02/06/12OV Order #: [id number] ID: [id number] Comments: DX = 272.4 [facility] 02/07/12Diagnosis: V58.69 - LONG-TERM USE [...] 12 hours, may have water.OV Order #: [id number] Order #: [id number] Comments: Reason:Interface Comments: DX = 427.31 [facility] 02/07/12OV Order #: [id number] Comments: DX = 428.0 [facility] 02/07/12 Range: 0.358-3.74 97-Wbf-216446:47 CBCD Comments: DR. VERGARA ORDERED CMP, RENAL, [...] 4.2-5.4 WBC 6.7 K/mm3 (Normal) Range: 4.4-11.0 6-Huz-631104:21 CBCD ANC 5.1 3/uL (Normal) Range: 2.0-7.7 [...] 4.2-5.4 WBC 7.8 K/mm3 (Normal) Range: 4.4-11.0 4-Hxh-823361:21 LIPID Comments: ORDERED TSH LIPID T4DR.BONEALIA ORDERED [...] VALVE PROLAPSEDiagnosis: 272.4 - HYPERLIPIDEMIAOV Order #: [id number] ID: [id number] Order #: [id number] Comments: Reason:OV Order #: [id number] VLDL 10 mg/dL (Normal) Range: 5-40 LDL [...] 200-240 mg/dL Borderline >240 mg/dL High Risk 1-Rqo-298948:21 RENAL Comments: ORDERED TSH LIPID T4DR.CLARY ORDERED [...] VALVE PROLAPSEDiagnosis: 272.4 - HYPERLIPIDEMIAOV Order #: [id number] ID: [id number] Order #: [id number] Comments: Reason:OV Order #: [id number] CO2 26.0 mmol/L (Normal) Range: 21.0-32.0 CL [...] 7-18 GLU 87 mg/dL (Normal) Range: 70-110 2-Weh-686458:21 T4 15.1 ug/dL (Abnormal) Comments: ORDERED TSH [...] VALVE PROLAPSEDiagnosis: 272.4 - HYPERLIPIDEMIAOV Order #: [id number] ID: [id number] Order #: [id number] Comments: Reason:OV Order #: [id number] Range: 4.8-13.9 1-Dvz-665887:21 TSH 1.69 {uIU/mL} (Normal) Comments: ORDERED TSH [...] VALVE PROLAPSEDiagnosis: 272.4 - HYPERLIPIDEMIAOV Order #: [id number] ID: [id number] Order #: [id number] Comments: Reason:OV Order #: [id number] Range: 0.358-3.74 94-Qkz-33882:57 BMP GAP 7 (Normal) Range: 5-15 CO2 [...] :57 TSH 2.61 {uIU/mL} (Normal) Range: 0.358-3.74 30-Tsf-729448:38 URINE DAR CULTURE-NOREEN COL Comments: PATIENT NOT FASTINGPERFORMED BY: LabCoClara [facility] CenterPuisue6142 [facility] [id number] Information: SRC: URINE COUNT ([id number]) Result 1 NG36 (Normal) Comments: No growth in 36 - 48 hours. Urine Culture,Comprehensive Final report (Normal) :42 Urinalysis, Office (45399) UA - BILIRUBIN Negative (Normal) UA - BLOOD Non Hemolyzed Trace (Normal) UA - GLUCOSE Negative (Normal) UA - KETONES Negative mg/dL (Normal) UA - LEUKOCYTE ESTERASE Trace (Abnormal) UA - NITRITE Negative (Normal) UA - PH 5.0 (Normal) UA - PROTEIN Negative mg/dL (Normal) UA - SPECIFIC GRAVITY 1.005 (Normal) URINE UROBILINGN NOREEN TIMED Normal mg/dL (Normal) 35-Dhl-357536:03 Urinalysis, Office (90507) UA - BILIRUBIN Negative (Normal) UA - BLOOD Hemolyzed Trace (Normal) UA - GLUCOSE Negative (Normal) UA - KETONES Negative mg/dL (Normal) UA - LEUKOCYTE ESTERASE Trace (Normal) UA - NITRITE Negative (Normal) UA - PH 5.0 (Normal) UA - PROTEIN Negative mg/dL (Normal) UA - SPECIFIC GRAVITY 1.010 (Normal) URINE UROBILINGN NOREEN TIMED Normal mg/dL (Normal) 7-Tid-205204:00 BMP Comments: JANET ORDERED BMP MG T4 [...] 7-18 GLU 88 mg/dL (Normal) Range: 70-110 1-Cel-797521:00 LIPID Comments: JANET ORDERED BMP MG T4 [...] 200-240 mg/dL Borderline >240 mg/dL High Risk 8-Uwi-884845:00 LIVER Comments: JANET ORDERED BMP MG T4 TSH LIVER LIPIDBONEZZI ORDERED BMP TSH T4F D BILI 0.11 mg/dL (Normal) Range: 0.00-0.30 T BILI 0.40 mg/dL (Normal) Range: 0.00-1.00 ALT 26 U/L (Normal) Range: 12-78 ALK P 70 U/L (Normal) Range: 50-136 AST 23 U/L (Normal) Range: 15-37 ALB 4.1 g/dL (Normal) Range: 3.4-5.0 T PROT 8.0 g/dL (Normal) Range: 6.4-8.2 2-Usp-870908:00 MG 2.0 mg/dL (Normal) Comments: JANET ORDERED BMP MG T4 TSH LIVER LIPIDBONEZZI ORDERED BMP TSH T4F Range: 1.5-2.2 2-Jdu-338054:00 T4 FREE DIRECT 1.69 ng/dL (Abnormal) Comments: JANET ORDERED BMP MG T4 TSH LIVER LIPIDBONEZZI ORDERED BMP TSH T4F Range: 0.76-1.46 3-Boz-584633:00 T4 THYROXIN 14.3 ug/dL (Abnormal) Comments: JANET ORDERED BMP MG T4 TSH LIVER LIPIDBONEZZI ORDERED BMP TSH T4F Range: 4.8-13.9 7-Zpj-219292:00 TSH 2.00 {uIU/mL} (Normal) Comments: JANET ORDERED BMP MG T4 TSH LIVER LIPIDBONEZZI ORDERED BMP TSH T4F Range: 0.358-3.74 7-Yqi-285934:46 Anaerobic and Aerobic Comments: PERFORMED BY: [facility] [facility] [id number] Information: SRC:EB RIGHT ELBOW Culture Result 1 NG36 (Normal) Comments: No growth in 36 - 48 hours. Aerobic Culture Final report (Normal) Result 1 [id number] (Normal) Comments: No aerobic or anaerobic growth in 72 hours. Anaerobic Culture Final report (Normal) [id number]:39 Urinalysis, Office ([id number]) UA - BILIRUBIN Negative (Normal) UA - BLOOD Negative (Normal) UA - GLUCOSE Negative (Normal) UA - KETONES Negative mg/dL (Normal) UA - LEUKOCYTE ESTERASE Negative (Normal) UA - NITRITE Negative (Normal) UA - PH 5.0 (Normal) UA - PROTEIN Negative mg/dL (Normal) UA - SPECIFIC GRAVITY 1.015 (Normal) URINE UROBILINGN NOREEN TIMED 2 mg/dL (Normal) 71-Rxz-36019:00 L/S SPINE,MIN 4 VIEWS Radiology Report See [...] (Abnormal) Range: 0-34 Comments: Performed at: - [facility] [id number] Director: Bella Taylor MD, Phone: [phone] T3 TOTAL 0.8 ng/mL (Normal) Comments: ORDERED [...] TPO T3F T4F 2:06 (Abnormal) Range: 0.358-3.74 05-Fwh-438459:13 BMP GAP 12 (Normal) Range: 5-15 CO2 [...] 7-18 GLU 95 mg/dL (Normal) Range: 70-110 63-Iuu-328631:13 CBCD ABSOLUTE NEUT 5.1 3/uL (Normal) Range: [...] 4.2-5.4 WBC 7.1 K/mm3 (Normal) Range: 4.4-11.0 56-Aba-901667:34 Vaginitis/Vaginosis, DNA Probe Comments: [facility]: [facility] [facility] [id number] Information: SRC:CE Gardnerella vaginalis Negative (Normal) Trichomonas [...] Visit for suture removal Concussion : Reviewed Telecommunications Repairer Letter Indication: Concussion Fall, accidental : Reviewed Telecommunications Repairer Letter Indication: Fall, accidental Fall, accidental : [...] Cerumen impaction : Follow up in with [facility] for ear irrigation Indication: Cerumen impaction [...] tract infection, unspecified type Planned Observations TSH (39149)Indication: Memory impairment On: 51-Kil-[id number]:11 Request AMMONIA ([id number])Indication: Memory impairment On: 15-Smw-742925:11 Request Methymalonic Acid, Serum (59837)Indication: Memory impairment On: 25-Pdk-177985:11 Request VITAMIN B-12 (CYANOCOBALAMIN) (51810)Indication: Memory impairment On: 32-Ebd-732275:11 Request FOLIC ACID SERUM (87733)Indication: Memory impairment On: 36-Axo-721916:11 Request METABOLIC PANEL, COMPREHENSIVE (37688)Indication: Coronary artery disease On: 97-Urc-082256:02 Request Comments: fax copy to [facility], BY NMR ([id number])Indication: Coronary artery disease On: 06-Kbu-059121:02 Request CALCIFIDIOL (84613) VIT D 25Indication: Vitamin D deficiency On: 47-Nsh-806288:02 Request Metabolic Panel, Comprehensive (39124)Indication: Hypokalemia On: 12-Nov-2017 Request Comments: fax a copy to Dr. Caitlin May [phone] Huang [phone] MAGNESIUM ([id number])Indication: Hypokalemia On: 8-Mxc-767365:03 Request Metabolic Panel, Comprehensive ([id number])Indication: Hypokalemia On: 9-Eaz-013476:02 Request Comments: fax a copy to Dr. Caitlin May [phone] Huang [phone] Metabolic Panel, Comprehensive ([id number])Indication: Hypokalemia On: 05-Nov-2017 Request Comments: fax a copy to Dr. Caitlin [phone] Huang [phone] Metabolic Panel, Comprehensive ([id number])Indication: Hypokalemia On: 29-Oct-2017 Request Comments: fax a copy to Dr. Caitlin [phone] Huang [phone] Metabolic Panel, Comprehensive ([id number])Indication: Hypokalemia On: 22-Oct-2017 Request Comments: fax a copy to Dr. Caitlin [phone] Huang [phone] Metabolic Panel, Comprehensive ([id number])Indication: Hypokalemia On: 15-Oct-2017 Request Comments: fax a copy to Dr. Tucker [phone] Huang [phone] Metabolic Panel, Comprehensive ([id number])Indication: Hypokalemia On: 08-Oct-2017 Request Comments: fax a copy to Dr. Caitlin May [phone] Huang [phone] Metabolic Panel, Comprehensive ([id number])Indication: Hypokalemia On: 01-Oct-2017 Request Comments: fax a copy to Dr. Caitlin May [phone] Huang [phone] Metabolic Panel, Comprehensive (92534)Indication: Hypokalemia On: 24-Sep-2017 Request Comments: fax a copy to Dr. Caitlin May [phone] Huang [phone] Renal function Panel ([id number])Indication: Renal insufficiency (Renamed from Renal function impairment) On: 21-Fja-571719:23 Request URIC ACID BLOOD (66137)Indication: Abnormal laboratory test On: 65-Pke-777538:53 Request Metabolic Panel, Comprehensive (46820)Indication: Hypokalemia On: 17-Sep-2017 Request Comments: fax a copy to Dr. Caitlin May [phone] Huang [phone] Metabolic Panel, Comprehensive ([id number])Indication: Hypokalemia On: 10-Sep-2017 Request Comments: fax a copy to Dr. Caitlin May [phone] Huang [phone] Metabolic Panel, Basic (69283)Indication: Cardiomyopathy On: 70-Xgt-285803:02 Request Comments: now stat and prn CREATININE BLOOD (26337)Indication: Left leg swelling On: 72-Sqk-477264:05 Request Metabolic Panel, Basic (84796)Indication: Renal insufficiency (Renamed from Renal function impairment) On: 20-Nqq-848433:16 Request Comments: re check in 4 weeks T4, FREE (THYROXINE) ([id number])Indication: Hypothyroidism On: 09-Ldm-925368:49 Request CALCIFIDIOL (07700) VIT D 25Indication: Vitamin D deficiency On: 21-Lkp-972433:47 Request TSH (THYROID STIMULATING HORMONE) (70367)Indication: Hypothyroidism On: 40-Cdo-586981:46 Request CREATININE BLOOD (69342)Indication: Abdominal pain, acute On: 64-Udz-254707:34 Request Metabolic Panel, Basic (12282)Indication: Abdominal pain, acute On: 75-Map-63359:31 Request T4, FREE (THYROXINE) (00440)Indication: Hypothyroidism On: :30 Request TSH (03969)Indication: Hypothyroidism On: :30 Request METABOLIC PANEL, COMPREHENSIVE (93765)Indication: DVT, bilateral lower limbs On: 73-Jqc-618783:48 Request PTT (Activated Partial Thromboplastin Time) (63858)Indication: DVT, bilateral lower limbs On: :29 Request PT (Prothrobim Time) (15704)Indication: DVT, bilateral lower limbs On: 88-Jbw-666845:29 Request Factor 2 (Prothrombin) Gene Mutation (38560)Indication: DVT, bilateral lower limbs On: :29 Request Factor V Leiden (63242)Indication: DVT, bilateral lower limbs On: :28 Request Antiphospholipid atb (70928)Indication: DVT, bilateral lower limbs On: :28 Request CBC, Platelets & Auto Diff (56258)Indication: Abdominal pain, acute On: 09-Swq-96943:38 Request Comments: coipy to Dr. jessie armendariz stat HEPATIC FUNCTION PANEL (33683)Indication: Abdominal pain, acute On: :37 Request Comments: to stat copy to Dr. natalie armendariz Metabolic Panel, Comprehensive ([id number])Indication: Abdominal pain, acute On: :23 Request Comments: all STAT Sed Rate Erythrocyte (59824)Indication: Abdominal pain, acute On: 99-Kvo-89933:19 Request CBC, Platelets & Auto Diff (32682)Indication: Abdominal pain, acute On: :19 Request Ferritin (37951)Indication: Abnormal RBC indices On: :08 Request CALCIFEDIOL (30363)Indication: Vitamin D deficiency On: :02 Request Folic Acid Serum (31667)Indication: Memory impairment On: :35 Request Methymalonic Acid, Serum (65955)Indication: Memory impairment On: :35 Request Vitamin B-12 (cyanocobalamin) (91885)Indication: Memory impairment On: :35 Request Metabolic Panel, Basic (89829)Indication: Cardiomyopathy in other diseases classified elsewhere On: :43 Request Urinalysis, Office (24131)Indication: Abdominal pain, acute On: 44-Jgo-230962:47 Request URINE DAR CULTURE-IDENTIFICATN (43732)Indication: Abdominal pain, acute On: 51-Ijs-699341:20 Request TSH (54383)Indication: Hypothyroidism On: 71-Tcd-430937:50 Request Comments: 8 weeks TSH (10341)Indication: Hypothyroidism On: :58 Request URINALYSIS, W/ MICRO (36538)Indication: Coronary artery disease On: :57 Request METABOLIC PANEL, COMPREHENSIVE (79223)Indication: Coronary artery disease On: :57 Request LIPID PANEL (25262)Indication: Coronary artery disease On: :57 Request CBC with auto diff (59811)Indication: Coronary artery disease On: :57 Request C-REACTIVE PROTEIN (68079)Indication: Abdominal pain, acute, generalized On: 29-Bhi-117840:31 Request Comments: stat CBC W/AUTO DIFF WBC (64039)Indication: Abdominal pain, acute, generalized On: :31 Request Comments: stat METABOLIC PANEL, COMPREHENSIVE (56024)Indication: Abdominal pain, acute, generalized On: :31 Request Comments: stat SED RATE ERYTHROCYTE (83638)Indication: Abdominal pain, acute, generalized On: 23-Mqp-915729:26 Request CBC with auto diff (53287)Indication: Cardiomyopathy On: :59 Request Comments: copy to Dr. valerio URINALYSIS, W/ MICRO ([id number])Indication: Cardiomyopathy On: :58 Request METABOLIC PANEL, COMPREHENSIVE (56283)Indication: Cardiomyopathy On: :58 Request LIPID PANEL (07309)Indication: Cardiomyopathy On: :58 Request TSH ([id number])Indication: Hypothyroidism On: :58 Request CBC W/AUTO DIFF WBC (69796)Indication: Coronary artery disease On: :08 Request Comments: copy to cardiology TSH ([id number])Indication: Hypothyroidism On: :08 Request URINALYSIS, W/ MICRO ([id number])Indication: Coronary artery disease On: :08 Request METABOLIC PANEL, COMPREHENSIVE (85266)Indication: Coronary artery disease On: :08 Request LIPID PANEL ([id number])Indication: Coronary artery disease On: :08 Request METABOLIC PANEL, COMPREHENSIVE (30293)Indication: Coronary artery disease On: :15 Request Comments: 05-24 CBC WITH MANUAL DIFF ([id number])Indication: Coronary artery disease On: :15 Request Comments: 05-24 TSH ([id number])Indication: Hypothyroidism On: 18-Nxy-904944:13 Request TSH ([id number])Indication: Hypothyroidism On: 22-Yyk-668138:18 Request CBC WITH MANUAL DIFF ([id number])Indication: Coronary artery disease On: 6-Yxo-282336:11 Request Comments: copy to [facility] URINALYSIS, W/ MICRO ([id number])Indication: Coronary artery disease On: 1-Dqj-421325:11 Request METABOLIC PANEL, COMPREHENSIVE ([id number])Indication: Coronary artery disease On: 3-Ngq-643423:11 Request LIPID PANEL ([id number])Indication: Coronary artery disease On: 1-Izb-666555:11 Request TSH ([id number])Indication: Hypothyroidism On: 9-Ork-259165:11 Request TSH (82543)Indication: Hypothyroidism On: 72-Tfn-781423:02 Request METABOLIC PANEL, COMPREHENSIVE (80146)Indication: Cardiomyopathy On: 48-Iue-222162:02 Request LIPID PANEL (71731)Indication: Cardiomyopathy On: 03-Tvl-402426:02 Request CBC WITH MANUAL DIFF ([id number])Indication: Cardiomyopathy On: 79-Srs-295901:02 Request TSH (50443)Indication: Hypothyroidism On: :29 Request Renal function Panel ([id number])Indication: Renal insufficiency (Renamed from Renal function impairment) On: 96-Okd-786182:29 Request CBC (Auto) (03241)Indication: Cardiomyopathy On: :40 Request Metabolic Panel, Comprehensive ([id number])Indication: Cardiomyopathy On: :40 Request T4, FREE (THYROXINE) ([id number])Indication: Hypothyroidism On: 54-Ykq-093383:39 Request TSH (60533)Indication: Hypothyroidism On: 85-Njm-108145:39 Request TSH (61261)Indication: Hypothyroidism On: 9-Oal-600080:09 Request CBC (Auto) ([id number])Indication: Cardiomyopathy On: 8-Xaw-174426:08 Request Renal function Panel ([id number])Indication: Cardiomyopathy On: :08 Request Metabolic Panel, Basic (52745)Indication: Cardiomyopathy On: :03 Request T4, FREE (THYROXINE) (59857)Indication: Hypothyroidism On: :03 Request TSH ([id number])Indication: Hypothyroidism On: :03 Request Metabolic Panel, Basic ([id number])Indication: Renal insufficiency (Renamed from Renal function impairment) On: 02-Wcb-849219:36 Request T4, FREE (THYROXINE) (21746)Indication: Hypothyroidism On: :35 Request TSH ([id number])Indication: Hypothyroidism On: :35 Request DAR CULTURE-OTHER ([id number])Indication: Bursitis, olecranon On: 1-Ljb-215794:18 Request Comments: olecranon bursa Metabolic Panel, Basic (04417)Indication: Hyperlipemia On: 82-Mgy-831617:09 Request Metabolic Panel, Basic ([id number])Indication: Gastroenteritis On: 44-Jlw-500864:56 Request Comments: stat CBC (Auto) (03217)Indication: Gastroenteritis On: 59-Zdl-189867:56 Request Metabolic Panel, Basic (24974)Indication: Cardiomyopathy On: :53 Request TSH ([id number])Indication: PVT (paroxysmal ventricular tachycardia) On: 42-Zdc-804622:53 Request URINALYSIS (04702)Indication: Cardiomyopathy On: :53 Request CBC (Auto) ([id number])Indication: Cardiomyopathy On: 01-Hzh-993847:53 Request INFCT ANTGN TRICH VAGIN DIRECT PRB ([id number])Indication: Vaginal discharge On: 56-Azm-854919:31 Request GARDNERELLA VAG, NUCLEIC ACID DIR PROBE ([id number])Indication: Vaginal discharge On: :31 Request ILEANA, NUCLEIC ACID DIRECT PROBE ([id number])Indication: Vaginal discharge On: 84-Uiq-092408:31 Request Planned Encounters Medical; [facility] 2 Month FU - On: 06-Jul-2018 10:15 [facility] Clary TIRADO, Minerva Oseguera MD Planned Procedures Flu Vaccine (Quadrivalent) On: 01-Jun-2018 Intent 12040Tu: Visit, Nurse Comments: Lot #[id number]-L dltd, IMDose prefilled syringegiven by:SORAIDA Calloway reviewed and ABN signed Aerosol Treatment (56798)By: On: 08-Jan-2018 Intent Clary TIRADO, Minerva Oseguera MD SCREENING DIGITAL On: 23-Sep-2017 Intent TOMOSYNTHESIS OF BREAST ([id number])By: Minerva Vergara MD, MD, Dana M Venous Doppler - LowerBy: On: 23-Sep-2017 Intent Minerva Vergara MD Comments: lower left extremity follow up on DVT from 07-27 due october Minerva TIRADO CTA ABDOMEN AND PELVIS On: 28-Jul-2017 Intent INCLUDING IMAGE POSTPROCESSING ([id number])By: Clary TIRADO, Minerva Oseguera MD VENOUS DOPPLER LOWER On: 28-Jul-2017 Intent EXTREMITY (76510)By: Clary Comments: upper and lower left legcall results to [phone] Minerva TIRADO MD, Dana M Radiology - [...] FLAT PLATE AND On: 04-Dec-2016 Intent ERECT ([id number])By: Ida Quiñonez DO CT - Chest (IV Contrast On: 04-Dec-2016 Intent Needed)By: Ida Quiñonez DO Comments: pe protocol today CT - Abdomen (Without On: 25-Nov-2016 Intent Contrast)By: Minerva Vergara MD, MD, Dana M Spirometry (22771)By: On: 31-Oct-2016 Intent Minerva Vergara MD Comments: see scanned document of test done to see results reviewed today with patient Minerva TIRADO Radiology - ChestBy: Clary On: 31-Oct-2016 Intent Minerva TIRADO MD, Dana M Comments: call wet read Radiology - KUBBy: Clary On: 31-Oct-2016 Intent Minerva TIRADO MD, Dana M Comments: upright. call wet read to [phone] Bone Density StudyBy: Clary On: 29-Jul-2016 Intent Minerva TIRADO MD, Dana M MAMMOGRAM, BILATERAL On: 29-Jul-2016 Intent (08526)By: Minerva Vergara MD, MD, Dana M Flu Vaccine (Quadrivalent) On: 09-May-2016 Intent 54458Ec: Slarb COMMUNICATIONS ADVISOR, Meka ELECTROCARDIOGRAM, COMPLETE On: 09-Aug-2015 Intent (ECG) (32928)By: Memo Armendariz CNP Radiology - ChestBy: Clary On: 17-Jul-2015 Intent Minerva TIRADO MD, Dana M Aerosol Treatment (30994)By: On: 14-Jul-2015 Intent Minerva Vergara MD, MD, Dana M Aerosol Treatment (68277)By: On: 29-May-2015 Intent Slarb COMMUNICATIONS ADVISOR, Meka ADMINISTRATION OF INFLUENZA On: 25-Apr-2015 Intent VIRUS VACCINE (G0008)By: Minerva Vergara MD, MD, Dana M Flu Vaccine (Quadrivalent) On: 25-Apr-2015 Intent 36281Zj: Minerva Vergara MD Comments: lot: [id number]: 01/07/16site/route: L del/IMamt: 0.5mLVIS signed when applicableИВАН Rodriguez MD, Dana M ACUTE ABDOMINAL SERIES On: 27-Mar-2015 Intent (16062)By: Ida Quiñonez DO Comments: stat call wet read INFUSION, NORMAL SALINE On: 04-Nov-2014 Intent SOLUTION , 1000 CC (Special Comments: only 500 ccIV Therapy [id number], 1 inchSite: r acTolerated: well, x 2nd attempt. L ac infiltrated and rpessure applied then covered with gauze and bandageno redness or swelling, no s/s infiltrationMegan, COMMUNICATIONS ADVISOR Coverage Instructions Apply. See MCM: 9) ([id number])By: Minerva Vergara MD, MD, Dana M Radiology - KUBBy: Clary On: 04-Nov-2014 Minerva Wright MD, MD, Dana M Comments: do today and call over wet read Radiology - Shoulder - On: 04-Nov-2014 Intent RightBy: Minerva Vergara MD, MD, Dana M Wax CurettesBy: Clary TIRADO, On: 15-Sep-2014 Intent Minerva Oseguera MD Ear Irrigation (28722)By: On: 15-Sep-2014 Intent Minerva Vergara MD, MD, Dana M Radiology - Shoulder - On: 15-Sep-2014 Intent RightBy: Minerva Vergara MD, MD, Dana M Radiology - ChestBy: Clary On: 15-Sep-2014 Intent Minerva TIRADO MD, Dana M Comments: by next week if not better with atb Aerosol Treatment (93787)By: On: 01-Sep-2014 Intent Memo Armendariz CNP DEXA SCAN AXIAL SKELETON On: 18-Feb-2014 Intent (01072)By: Minerva Vergara MD, MD, Dana M MAMMOGRAM, SCREENING, BOTH On: 18-Feb-2014 Intent BREAST (70569)By: Minerva Vergara MD, MD, Dana M INFUSION, NORMAL SALINE On: 29-Oct-2013 Intent SOLUTION , 250 CC (Special Coverage Instructions Apply. See MCM: 2049) (J7050)By: Tiera Carmen DO IV Needle placement On: 29-Oct-2013 Intent (22531)By: Kermit WEBER, Comments: 3rd attempt successful in R RJ Wagner Tiera IV Infusion (44914)By: Kermit On: 29-Oct-2013 Tiera Wright DO Eprescribed prescriptions On: 29-Oct-2013 Intent (G8553)By: Tiera Carmen DO Aerosol Treatment (57019)By: On: 29-Oct-2013 Intent Tiera Carmen DO Solu- Medrol Injection, 125mg On: 29-Oct-2013 Intent (J2930)By: Kermit WEBER, Comments: lot: [id number]: 12/23site/route: RGM/IMamt:2mLVIS signed when applicableChelsИВАН gutiérrez Tiera Eprescribed prescriptions On: 26-Oct-2013 Intent (G8553)By: Clary TIRADO, Minerva Oseguera MD Wax CurettesBy: Ciglenysa TEXTILE SLITTING MACHINE OPERATOR, On: 22-Oct-2013 Intent Saba Ear Irrigation (70242)By: On: 22-Oct-2013 Intent Ciesa TEXTILE SLITTING MACHINE OPERATOR, Saba Eprescribed prescriptions On: 25-Jun-2013 Intent (G8553)By: Jeanne Gil LPN Wax CurettesBy: Clary TIRADO, On: 18-Jun-2013 Intent Minerva Vergara MD, Minerva Painting Ear Irrigation (01170)By: On: 18-Jun-2013 Intent Clary TIRADO, Minerva Vergara MD, Minerva Painting Eprescribed prescriptions On: 18-Jun-2013 Intent (G8553)By: Jeanne Gil LPN MAMMOGRAM, SCREENING, BOTH On: 16-Mar-2013 Intent BREASTS (34631)By: Clary Comments: 06-23 maddi TIRADO, Minerva Vergara MD, Minerva Painting Wax CurettesBy: Clary TIRADO, On: 16-Mar-2013 Intent Minerva Vergara MD, Minerva Painting Ear Irrigation (56649)By: On: 16-Mar-2013 Intent Minerva Vergara MD, MD, Dana M Inhaler Demonstration On: 15-Feb-2013 Intent (51546)By: Memo Armendariz CNP Aerosol Treatment (98213)By: On: 15-Feb-2013 Intent Memo Armendariz CNP Eprescribed prescriptions On: 08-Dec-2012 Intent (G8553)By: Jeanne Gil LPN Aerosol Treatment (35764)By: On: 03-Dec-2012 Intent Minerva Vergara MD, MD, Dana M Pulse Oximetry (73577)By: On: 03-Dec-2012 Intent ARON Lawrence Wax CurettesBy: Kala HAZEL, On: 25-Nov-2012 Intent Memo Weeks Ear Irrigation (39311)By: On: 25-Nov-2012 Intent Memo Armendariz CNP SPECIMEN HNDLNG/TRNSPRT, OFFC On: 25-Nov-2012 Intent > LAB (87776)By: Nova Posadas LPN Breast Screening - On: 28-Apr-2012 Intent BilateralBy: Minerva Vergara MD, MD, Dana M Bone Density StudyBy: Clary On: 28-Apr-2012 Intent Minerva TIRADO MD, Dana M Aerosol Treatment (88814)By: On: 28-Apr-2012 Intent Minerva Vergara MD, MD, Dana M TDAP VACCINE >7 IM (15378)By: On: 06-Feb-2012 Intent Sneha Vasquez doppler/ultrasound - right On: 20-Jan-2012 Intent calfBy: Minerva Vergara MD Comments: attention subcutaneous mass, history of clots Minerva Vergara MD Ear Irrigation (09102)By: On: 11-Oct-2011 Intent Minerva Vergara MD Comments: med amt of wax removed from the left ear. small amt of wax removed from the right ear. pt tolerated well. Minerva TIRADO Wax CurettesBy: Clary TIRADO, On: 11-Oct-2011 Intent Minerva Oseguera MD Aerosol Treatment (24292)By: On: 08-Oct-2011 Intent Memo Armendariz CNP Aerosol Treatment ([id number])By: On: 04-Oct-2011 Intent Memo Armendariz CNP EKG (29259)By: Clary TIRADO, On: 15-Aug-2011 Intent Minerva Oseguera MD Comments: see scanned document. Nerve ConductionBy: Clary On: 29-Jul-2011 Intent Minerva TIRADO MD, Dana M Comments: lower leg EMGBy: Minerva Vergara MD On: 29-Jul-2011 Intent Minerva Vergara MD Solu -Medrol Injection, 125 On: 16-Apr-2011 Intent mg (J2930)By: Kala HAZEL, Comments: Lot:[id number]:sep 11 2013Amt:125mgRoute:IMSite:right hip Given By: RJ Soriano Memo Weeks THER/PROPH/DIAG IV INF, INIT On: 15-Feb-2011 Intent (99881)By: Minerva Vergara MD, MD, Dana M Rocephin [...] Minerva TIRADO MD, Dana M Pulse Oximetry (37723)By: On: 03-Sep-2010 Intent ARON Lawrence Radiology - Lumbar SpineBy: On: 29-Aug-2010 Intent Ida Quiñonez DO Comments: call wet read Venous Doppler - LeftBy: On: 23-Jul-2010 Intent Minerva Vergara MD Comments: leg. send copy Dr. [place] orthosMinerva lovett MD HYDRATION IV INFUSION, INIT On: 28-Jun-2010 Intent (84161)By: Minerva Vergara MD Comments: only gave 500 cc of LR with CMP historyLot #:[id number] date:mount given:500ml Route: IVSite given:left wrist Given by: Ultimate Football Networkssell Butterfly needle placed to left wrist with minimal difficulty 500ml LR infused Minerva Vergara MD Planned Medications INFUSION, NORMAL SALINE SOLUTION , 1000 CC Ordered: 04-Nov-2014 Pending Mnierva Vergara MD, MD, Dana M INFUSION, NORMAL SALINE SOLUTION , 250 CC Ordered: 29-Oct-2013 Pending Kermit WEBER Tiera INJECTION, CEFTRIAXONE SODIUM, PER 250 MG Ordered: 15-Feb-2011 Pending Minerva Vergara MD, MD, Dana M INJECTION, METHYLPREDNISOLONE SODIUM SUCCINATE, UP TO 125 MG Ordered: 16-Apr-2011 Pending Kala HAZEL, Saba INJECTION, METHYLPREDNISOLONE SODIUM SUCCINATE, UP TO 125 MG Ordered: 29-Oct-2013 Pending Brisa aCrmen DOeen INJECTION, TRIAMCINOLONE ACETONIDE, NOT OTHERWISE SPECIFIED, [...] The patient does have durable power of desk representative and living will. The patient has noticed nothing from the geriatic depression scale. Other providers contributing to the patient's care are parcel carrier and other: (Dr. Tucker Endocrine). Encounter Diagnosis: [...] loss, bilateral, Polyp of colon, adenomatous, Depression, URIMLA on CPAP, Pneumonia, bacterial, BMI 26.0-26.9,adult, Abnormal [...] cancer screening up to date- drove to [place] few weeks ago- no family hx of [...] The patient does have durable power of desk representative and living will. The patient has noticed having problems with memory than others and lack of energy. Other providers contributing to the patient's care are parcel carrier (Reina) and other: (eye doctor - has [...] Nutrition: balanced diet and supplemental vitamins. The [place] d[place] issues the patient is following up [...] [facility]: 19-Apr-2011 10:08 Implant Surgeon [place], [place] ) . There have been no [...]
--- OUTSIDE RECORDS SUMMARY | 2018-09-02 18:17 | XMS RPT_ITS | Continuity of Care Document ---
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 symptoms (Acute) Memory impairment (Chronic) Prediabetes (Chronic) Stroke ([employer] gemma) Nonrheumatic mitral (valve) prolapse (Resolved) Hyperlipemia (Chronic) Heart palpitations (Acute) Long-term use of high-risk medication (Chronic) 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 [facility] catheter[facility]: 05/29/2011 CONCLUSION 1. Zvwt-sc-fwdyrbzr global left ventricular systolic dysfunction. Ejection fraction 40 percent. 2. Left main with 10 percent eccentric ostial stenosis/eccent smiley takeoff. 3. Left anterior descending with 10-20 percent smooth tubular proximal stenosis. 4. Circumflex coronary angiographically normal. 5. Right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 angiographically normal. Pacemaker /ICD: Silicator: Passlogix Name: Protecta VR Model #: [id number] Serial #: [id number] Date Implanted: 04/29/2013 Device Characteristics Device: Single [...] lipid labs were checked on 06/12/2018 at [facility] in [place], [place]. According to the report received today [...] use of high-risk medica tion Z79.899 06/17/18 3155 <Electronically signed by Gurdeep Huang MD> Date Gurdeep Huang MD Cosigner Signature: Date _ (if applicable) CC: Minerva Vergara MD 17-Jun-2018 12 Lead EKG performed by [facility] Result: Comments: See Note; NOTES: [facility] [address] [place] [address] 12 Lead EKG performed by [facility] 06/17/181358 MR#: [id number] Acct: [id number] Name: IRIS VALENCIA Rep #: [id number] : 1940 78 From: Gurdeep Huang MD Attending Dr: Gurdeep Huang MD Status: DEP [facility] Ordering Dr: Gurdeep Huang MD Date: 06/17/18 [place] [facility] [place] Sex: F C Admitted: [facility]12 Lead EKG performed by [facility] ECG Report Interpretation Sinus Rhythm -First degree A-V block - multiform ectopic ventricular beats Poor R wave progress ionVoltage criteria for Left ventricular hypertrophy Nonspecific ST depression ABNORMAL Electronically signed on 06/17/2018 at 17:25 by Gurdeep Huang Software Version 8610 06/17/18 1726 Da te Gurdeep Huang MD CC: Minerva Vergara MD Date Dictated: 06/17/18 1359 Date Transcribed: 06/17/181358 Gimp Buttonhole Machine Operator: PM Signed 01-May-2018 Pacemaker Check Result: Comments: See Note; NOTES: [facility] [address] [place] [address] Pacemaker Check Date of Service: 05/01/18 1428 MR#: [id number] Acct: [id number] Name: IRIS ARRIAGA Rep #: [id number] : 1940 From: Kim Pickard Age/Sex: 78/F Location: [facility] Status: Signed Billing Codes ICD Device Billing: ICD Dev Prog Eval, Single 05/01/18 1430 <Elect ronically signed by Kim Pickard > Date Kim Pickard 05/01/18 1634<Electronically signed by Gurdeep Huang MD> Cosigner Sign ature: Date (if applicable) Gurdeep Huang MD CC: 18-Mar-2018 Pulmonary Visit Report Result: Comments: See Note; NOTES: [facility] [address] [place] [address] OFFICE VISIT Date of Service: 03/18/18 MR#: [id number] Acct: [id number] Name: SIOMARA EVERETTEIRIS Rep #: [id number] : 1940 Provider: Glenna Anderson Age/Sex: 78/F Location: [facility] Status: Signed Assessment AND Plan Problems 1. 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 [place] [address] Pacemaker Check Date of Service: 01/28/18 1424 MR#: [id number] Acct: [id number] Name: IRIS ARRIAGA Rep #: [id number] : 1940 From: Kim Pickard Age/Sex: 78/F Location: [facility] Status: Signed Comments Summary Comments: Single Chamber ICD Report: See attached scanned senior java programmer analyst Repor t. Interrogation shows no [...] in office Interview Reason: routine follow up Silicator: Medtronic Name: Protecta VR Model: [id number] Serial #: [id number] Implant Date: 04/29/13 Year(s): 4 Implant Physician: Dr. Jose Murphy Patient Characteristics Atrial Indication: Paroxysmal atrial fibrillation Ventricular Indication: Nonsustained VT Patient Substrate: Nonischemic cardiomyopathy By: Echo Implant DFT: 18J Underlying rhythm: Sinus rhythm Pacemaker Dependent: No Device Characteristics Device: Single Chamber Type: Implantable defibrillator Remote Follow-Up: No Device Physical Exam Yes Incision well healed Leads Lead #1 Silicator Lead 1: Medtronic Model Lead 1: 5076 Serial# Lead 1: [id number] Date Implanted Lead 1: 09/03/04 Position Lead 1: RV Lead #2 Silicator Lead 2: Medtronic Model Lead 2: 6943 Serial# Lead 2: [id number] Date Implanted Lead 2: 11/18/00 Position Lead [...] R00.2 6. Atherosclerot ic heart disease of inupiat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 with angina pectoris I25.119 7. Syncope R55 02/01/18 1335 <Electronically signed by Kim Pickard > Date Kim Pickard 02/02/18 0800<Electronically signed by Gurdeep Huang MD> Cosigner Signature: Date (if applicable) Gurdeep Huang MD CC: 27-Oct-2017 Venous Duplex Lower Extremity Result: Comments: See Note; NOTES: [facility] Cardiovascular Services [address] [place] [address] Venous Duplex US, Unilateral 10/27/17 0952 MR#: [id number] Acct: [id number] Name: Bacilio IRIS ARMENDARIZ Rep #: [id number] : 1940 77 From: Alejandro Armendariz MD [...] Date Dictated: 10/27/17 0952 Date Transcribed: 10/27/171613 Gimp Buttonhole Machine Operator: Signed 15-Oct-2017 Pulmonary Visit Report Result: Comments: See Note; NOTES: [facility] [address] [place] [address] OFFICE VISIT Date of Service: 10/15/17 MR#: [id number] Acct: [id number] Name: IRIS STRINGER CH Rep #: [id number] : 1940 Provider: Glenna Anderson Age/Sex: 77/F Location: [facility] Status: Signed Assessment AND Plan 1. URMILA [...] months. Plan Detail Follow Up 3 Months (DMKamari) [facility] Hospital FU: Chief Complaint: Shortness of breath on exertion [facility] Comments Details: This is a [...] body aches. She has not utilized any xlte-tmy-itndhkk medications for her shortness of breath. 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) Tendinitis, [...] G47.33 IRENE (dyspnea on exertion) R06.09 10/15/17 1936 <Electronically signed by Glenna CORADO> Date Cher CORADO Cosigner Signature: Date (if applicable) CC: Minerva Vergara MD 14-Oct-2017 SCREENING MAMM (CAD), BILAT Result: Comments: See Note; NOTES: [facility] Imaging Services [address] [place] [address] SCREENING MAMM (CAD), BILAT MR#: [id number] Acct: [id number] Name: IRIS ARRIAGA Rep #: [id number] : 1940 F 77 From: Ed Fink MD PCP: Minerva Vergara MD Status: REG CLI Study: SCREENING MAMM (CAD), BILAT Date of Exam: 10/14/17 Exam# [id number] Ordering Dr: Minerva Vergara MD MAMMOGRAPHY - [...] delay biopsy of a clinically suspicious abnormality. [id number] Electronically Signed: Ed Fink MD at 11:10 EST Tel [phone], Service support , CC: Minerva Vergara MD Gimp Buttonhole Machine Operator: Signed 06-Oct-2017 Office Visit Report Result: Comments: See Note; NOTES: [facility] Services [address] [place] [address] OFFICE VISIT Date of Service: 09/25/17 MR#: [id number] Acct: [id number] Patient: IRIS ARRIAGA Rep #: [id number] : 1940 Provider: Kim Pickard Age/Sex: 77/F Location: [facility] Status: Signed Comments Summary Comments: Single Chamber ICD Evaluation: Interrogation shows no VT/VF episodes since 06/17/17. Left pectoral pocket/incision w/o s/s of infection or erosion. Pt offers no cardiac complaints. Presenting rhythm shows NSR @ 92 bpm. ALPINE GUIDE=<0.1%. Lead impedance, sensing and pace/sense thres hold remain stable. No parameter changes made. Counters cleared. Next f/u appt scheduled for in 3 mos. Device Device Date Interviewed: 09/25/17 Follow-up Location: in office Interview Reason: routine follow up Silicator: Medtronic Name: Protecta VR Model: [id number] Serial #: [id number] Implant Date: 04/29/13 Year(s): 4 Implant Physician: [...] Incision well healed Leads Le ad #1 Silicator Lead 1: Medtronic Model Lead 1: 5076 Serial# Lead 1: [id number] Date Implanted Lead 1: 09/03/04 Position Lead 1: RV Additional Details: pace/sense lead Lead #2 Silicator Lead 2: Me dtronic Model Lead 2: 6943 Serial# Lead 2: [id number] Date Implanted Lead 2: 11/18/00 Position Lead [...] Visit Report Result: Comments: See Note; NOTES: [facility] [address] [place] [address] OFFICE VISIT Date of Service: 09/11/17 MR#: [id number] Acct: [id number] Name: IRIS ARRIAGA Rep #: [id number] : 1940 Provider: Gurdeep Huang MD Age/Sex: 77/F Location: [facility] Status: Signed HPI 6 M FU: Details: [...] that she was evaluated for such at [facility]. 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 She is due to see her shot polisher at [facility] in October of this year. [...] artery disease) I25.10 Coronary Disease-Associated Artery/Lesion type: inupiat artery Long-term use of high-risk medication Z79.899 [...] artery disease) I25.10 Coronary Disease-Associated Artery/Lesion type: inupiat artery Long-term use of high-risk medication Z79.899 09/11/17 1716 <Electronically signed by Gurdeep Huang MD> Date [facility] MD [facility] Signature: Date ___ (if applicable) CC: Minerva Vergara MD 28-Jul-2017 Venous Duplex Lower Extremity Result: Comments: See Note; NOTES: [facility] Cardiovascular Services [address] [place] [address] Venous Duplex US, Unilateral 07/28/17 0942 MR#: [id number] Acct: [id number] Name: IRIS HOU Rep #: [id number] : 1940 77 From: Alejandro Armendariz MD Attending Dr: Minerva Vergara MD Status: REG CLI Ordering Dr: Minerva Vergara MD Date: 07/28/17 Location: [facility] Sex: F C Admitted: Reason For Study: [...] MD Date Dictated: 07/28/1742 Date Transcribed: 07/28/171751 Gimp Buttonhole Machine Operator: Signed 28-Jul-2017 CT ANGIO ABD AND PEL W/O AND W/DYE Result: Comments: See Note; NOTES: [facility] Imaging Services [address] [place] [address] CT ANGIO ABD AND PEL W/O AND W/DYE MR#: [id number] Acct: [id number] Name: IRIS ARRIAGA Rep #: [id number] : 1940 F 77 From: Apolinar Ansari DO PCP: Minerva Vergara MD Status: REG CLI Study: CT ANGIO ABD AND PEL W/O AND W/DYE Date of Exam: 07/28/17 Exam# [id number] Ordering Dr: Minerva Child i, MD STUDY: [...] Service support , CC: Minerva Vergara MD Gimp Buttonhole Machine Operator: Signed 19-Feb-2017 6 Minute Walk Test Result: Comments: See Note; NOTES: [facility] Pulmonary Services/Neurology [address] [place] [address] MR#: [id number] Acct: [id number] Name: IRIS ARRIAGA Rep #: [id number] : 1940 77 From: Jeremie Schultz MD Referring Dr: Bruno Barcenas D.O. Date: Ordering Dr: Sex: F C Location: PSN PSN 6 Minute Walk Test - 6 Minute Walk Test 6 Minute Walk Test: 6 Minute Walk Test PS N:6-Minute Walk Test Start: 02/19/17 12:50 Freq: Status: Active Document 02/19/17 12:50 FR (Rec: 02/19/17 12:53 FR [id number]) 6 Minute Walk Test Date Performed 02/19/17 [...] <Electronically signed by Jeremie Schultz MD> Date Bruc e Juan Alberto TIRADO CC: Date Dictated: 02/19/17 1553 Date Transcribed: 02/19/171552 Gimp Buttonhole Machine Operator: Jeremie Schultz Signed 03-Jan-2017 Abdomen/Pelvis WITH Contrast Result: Comments: See Note; NOTES: [facility] Imaging Services [address] [place] [address] Martindaviviana 4d Abdomen/Pelvis WITH Contrast MR#: [id number] Acct: [id number] Name: JARON ARRIAGA Rep #: [id number] : 1940 F 76 From: Ed Fink MD PCP: Minerva Vergara MD Status: REG CLI Study: Abdomen/Pelvis WITH Contrast Date of Exam: 01/03/17 Exam# [id number] Ordering Dr: Minerva Bartlett MD STUDY: CT [...] Ed Fink MD at 13:03 EDT Tel [phone], Service support , CC: Minerva Vergara MD Gimp Buttonhole Machine Operator: Signed 01-Jan-2017 Pulmonary Function Report Comp Result: Comments: See Note; NOTES: [facility] Pulmonary Services/Neurology [address] [place] [address] Pulmonary Function Test (Comp) MR#: [id number] Acct: [id number] Name: ETHELCATHLEENSANDEEP Tucker Rep #: [id number] : 1940 76 From: Bruno Barcenas DO Referring Dr: Minerva Vergara MD Status: REG CLI Ordering Dr: Minerva Vergara MD Date: 12/31/16 Location: PSN Sex: F C DATE OF SERVICE: 12/10 [...] C: Referring Provider . T: NTS JOB: [id number] 01/01/17 1057 <Electronically signed by Christian Barcenas DO> Date Bruno Barcenas DO CC: Minerva Vergara MD; Bruno Barcenas D.O. Date Dictated: 12/31/161600 Date Transcribed: 12/31/161600 Gimp Buttonhole Machine Operator: Signed 26-Dec-2016 Echocardiogram Complete Result: Comments: See Note; NOTES: [facility] Cardiovascular Services [address] [place] [address] Echo Complete 12/25/16 1357 MR#: [id number] Acct: [id number] Name: IRIS ARRIAGA Rep #: [id number] : 1940 76 From: Gurdeep Huang MD Attending Dr: Peace Miller Status: REG CLI Ordering Dr: Peace Miller Date: 12/25/16 Location: [facility] Sex: F C Admitted: Bacilio ludwig For [...] Minerva Vergara M.D. Performed By: [facility] 12/26/16 09 Date Gurdeep Huang MD CC: Minerva Vergara MD; Peace Miller Date Dictated: 12/25/16 1357 Date Transcribed: 12/26/16906 Gimp Buttonhole Machine Operator: Signed 04-Dec-2016 Abd Inc Decub and/or Erect Result: Comments: See Note; NOTES: [facility] Imaging Services [address] [place] [address] Verdana 4d Abd Inc Decub and/or Erect MR#: [id number] Acct: [id number] Name: ARI ARRIAGA Jose Manuel Tucker Rep #: [id number] : 1940 F 76 From: Mele Brown MD PCP: Minerva Vergara MD Status: REG CLI Study: Abd Inc Decub and/or Erect Date of Exam: 12/04/16 Exam# [id number] Ordering Dr: Anita Quiñonez DO STUDY: X-RAY [...] CC: Minerva Vergara MD; Ida Quiñonez DO Gimp Buttonhole Machine Operator: Signed 04-Dec-2016 CTA Chest W/WO Contrast Result: Comments: See Note; NOTES: [facility] Imaging Services [address] [place] [address] [place] 4d CTA Chest W/WO Contrast MR#: [id number] Acct: [id number] Name: IRIS ARRIAGA Rep #: [id number] : 1940 F 76 From: Ed Fink MD PCP: Minerva Vergara MD Status: REG CLI Study: CTA Chest W/WO Contrast Date of Exam: 12/04/16 Exam# [id number] Ordering Dr: Ida Quiñonez DO STUDY: CTA [...] Megan Fink MD at 15:43 EDT Tel [phone], Service support , CC: Minerva Vergara MD; Ida Quiñonez DO Gimp Buttonhole Machine Operator: Signed 03-Dec-2016 Venous Duplex Lower Extremity Result: Comments: See Note; NOTES: [facility] Cardiovascular Services [address] [place] [address] Venous Duplex US - David Extrem 12/03/16 1553 MR#: [id number] Acct: [id number] Name: IRIS ARRIAGA Rep #: [id number] : 1940 76 From: Alejandro Armendariz MD [...] Armendariz Performed By: Rm Ferro RVT 12/03/16 5750 Date Alejandro Armendariz MD CC: Minerva Vergara MD; Alejandro Armendariz MD Date Dictated: 12/03/16 1553 Da te Transcribed: 12/03/16 1850 Gimp Buttonhole Machine Operator: Signed 02-Dec-2016 Abdomen without IV Contrast Result: Comments: See Note; NOTES: [facility] Imaging Services [address] [place] [address] Martindana 4d Abdomen without IV Contrast MR#: [id number] Acct: [id number] Name: CAMILA ARRIAGA Rep #: [id number] : 1940 F 76 From: Moses Chase MD PCP: Minerva Vergara MD Status: REG CLI Study: Abdomen without IV Contrast Date of Exam: 12/02/16 Exam# [id number] Ordering Dr: Minerva Broussard MD STUDY: CT [...] diverticulitis. The abdominal wall is intact. A [place] umbrella filter is in place but 4 [...] lower lumbosacral spin e. Electronically Signed: Moses hCase, at 7:27 EDT Tel , Service support , CC: Minerva Vergara MD Gimp Buttonhole Machine Operator: Signed 31-Oct-2016 Abd Inc Decub and/or Erect Result: Comments: See Note; NOTES: [facility] Imaging Services [address] [place] [address] Verdana 4d Abd Inc Decub and/or Erect MR#: [id number] Acct: [id number] Name: ARI ARRIAGA Rep #: [id number] : 1940 F 76 From: Ed Fink MD PCP: Minerva Vergara MD Status: REG CLI Study: Abd Inc Decub and/or Erect Date of Exam: 10/31/16 Exam# [id number] Ordering Dr: Minerva Vergara MD STUDY: X-RAY [...] Ed Fink MD at 10:26 EDT Tel [phone], Service support [phone], CC: Minerva Vergara MD Gimp Buttonhole Machine Operator: Signed 31-Oct-2016 Chest PA and Lateral Result: Comments: See Note; NOTES: [facility] Imaging Services [address] [place] [address] Verdana 4d Chest PA and Lateral MR#: [id number] Acct: [id number] Name: IRIS ARRIAGA p #: [id number] : 1940 F 76 From: Ed Fink MD PCP: Minerva Vergara MD Status: REG CLI Study: Chest PA and Lateral Date of Exam: 10/31/16 Exam# [id number] Ordering Dr: Minerva Vergara MD S TUDY: [...] Ed Fink MD at 10:27 EDT Tel [phone], Service support [phone], CC: Minerva Vergara MD Gimp Buttonhole Machine Operator: Signed 26-Sep-2016 Dexa Bone Density Study (HP) Result: Comments: See Note; NOTES: [facility] Imaging Services [address] [place] [address] Verdana 4d Dexa Bone Density Study (HP) MR#: [id number] Acct: [id number] Name: JARON ARRIAGA Rep #: [id number] : 1940 F 76 From: Ed Fink MD PCP: Minerva Vergara MD Status: REG CLI Study: Dexa Bone Density Study (HP) Date of Exam: 09/26/16 Exam# [id number] Ordering Dr: Minerva Bartlett MD STUDY: DUAL [...] Fink MD at 15:0 0 EST Tel [phone], Service support [phone], CC: Minerva Vergara MD Gimp Buttonhole Machine Operator: Signed 26-Sep-2016 SCREENING MAMM (CAD), BILAT Result: Comments: See Note; NOTES: [facility] Imaging Services [address] [place] [address] Verdana 4d SCREENING MAMM (CAD), BILAT MR#: [id number] Acct: [id number] Name: CAMILA ARRIAGA Rep #: [id number] : 1940 F 76 From: Ed Fink MD PCP: Minerva Vergara MD Status: REG CLI Study: SCREENING MAMM (CAD), BILAT Date of Exam: 09/26/16 Exam# [id number] Ordering Dr: Minerva Child i, MD MAMMOGRAPHY [...] delay biopsy of a clinically suspicious abnormality. [id number] Electronically Signed: Ed Fink MD at 7:48 EST Tel [phone], Service support [phone], CC: Minerva Vergara MD Gimp Buttonhole Machine Operator: Signed 09-Feb-2016 Operative Report Result: Comments: See Note; NOTES: [facility] Medical Records Department [facility] [place] [address] Operative Report MR#: [id number] Acct: [id number] Name: CAMILA ARRIAGA Rep #: [id number] : 1940 76 From: Clifford Gifford MD PCP: Minerav Vergara MD Status: REG CLI DATE OF [...] without difficulty to the cecum, identified by dot lake's foot appearance, ileocecal valve and appendiceal orifice. [...] notify the patient. Kamari Gifford MD T: [facility] JOB: [id number] 02/09/16705 <Electronically signed by Clifford Gifford MD> Date Clifford Gifford MD Cosign er Signature (If Indicated): Date CC: Clifford Gifford; Minerva Vergara MD Date Dictated: 01/30/1633 Date Transcribed: 01/30/16832 Gimp Buttonhole Machine Operator: Signed 15-Nov-2015 Gallbladder Result: Comments: See Note; NOTES: [facility] Imaging Services [address] [place] [address] Verdana 4d Gallbladder MR#: [id number] Acct: [id number] Name: IRIS ARRIAGA Rep #: [id number] : 1940 F 75 From: Sofia Storey MD PCP: Minerva Veragra MD Status: REG ER Study: Gallbladder Date of Exam: 11/15/15 Exam# [id number] Ordering Dr: Jalil Nogueira MD STUDY: ULTRASOUND [...] MD at 21:57 EDT , Service support [phone], F ax [phone] CC: Minerva Vergara MD; Jalil Nogueira MD Gimp Buttonhole Machine Operator: Signed 15-Nov-2015 Abdomen/Pelvis WITH Contrast Result: Comments: See Note; NOTES: [facility] Imaging Services [address] [place] [address] Verdana 4d Abdomen/Pelvis WITH Contrast MR#: [id number] Acct: [id number] Name : IRIS ARRIAGA Rep #: [id number] : 1940 F 75 From: Sofia Storey MD PCP: Minerva Vergara MD Status: REG ER Study: Abdomen/Pelvis WITH Contrast Date of Exam: 11/15/15 Exam# [id number] Order ing Dr: Jalil Nogueira MD STUDY: [...] MD at 20:10 EDT , Service support [phone], CC: Minerva Vergara MD; Jalil Nogueira MD Gimp Buttonhole Machine Operator: Signed 31-Oct-2015 Cerv Spine 4 or 5 Views Result: Comments: See Note; NOTES: [facility] Imaging Services [address] [place] [address] Verdana 4d Cerv Spine 4 or 5 Views MR#: [id number] Acct: [id number] Name: IRIS WRAY Rep #: [id number] : 1940 F 75 From: Alexey Stephens MD PCP: Minerva Vergara MD Status: REG CLI Study: Cerv Spine 4 or 5 Views Date of Exam: 10/31/15 Exam# [id number] Ordering Dr: Tiffanie Corcoran DO STUDY: X-RAY [...] a t 13:54 EDT , Service support [phone], RAD/Cerv Spine 4 or 5 Views IMPRESSION: Severe cervical spondylosis. Electronically Signed: Earl Stephens MD, FACR at 13:54 EDT , Service support [phone], CC: Tiffanie Saha DO; Minerva Vergara MD Gimp Buttonhole Machine Operator: Signed 28-Sep-2015 PT D/C Summary (1) Result: Comments: See Note; NOTES: [facility] Physical Therapy [facility] [address] [place], [place] [address] Fax REHABILITATION SE RVICES DISCHARGE SUMMARY MR#: [id number] Acct: [id number] Name: IRIS ARRIAGA Rep #: [id number] : 1940 75 From: Kelvin Newman DPT, [...] please feel free to call me at [phone]. Thank you for the referral of this patient. Sincerely, Kelvin Newman <Electronically signed by Kelvin Newman DPT, OCS, CSCS> 09/28/15 0944 CC: Minerva Vergara MD; Nerissa Bhat EBG Signed 24-Aug-2015 PT Communication Result: Comments: See Note; NOTES: [facility] Physical Therapy [facility] [address] [place] [address]. [address] [place] [address] Fax REHABILITATION SE RVICES PROGRESS NOTE MR#: [id number] Acct: [id number] Name: IRIS ARRIAGA Rep #: [id number] : 1940 75 From: Kelvin Newman Referring Dr.: Nerissa Bhat Status: REG RCR Insurance: [employer] PPO ANTHEM PT Communication Note 08/24/15 Dear Mert Moore and Dr. Vergara, Thank you for the referral of Iris Arriaga to [facility] for physical [facility] and balance assessment. I [...] signed by Kelvin Newman > Date Kelvin Melaraign Signature (if applicable): Alessandro hernandez CC: Minerva Vergara MD; Nerissa Bhat Signed For Medicare only, by signing this I certify the plan of care. Physicians Signature Date 17-Aug-2015 Inital Evaluation - PT Result: Comments: See Note; NOTES: [facility] Physical Therapy [facility] [address] [place] [address]. [address] [place], [place] [id number] Fax REHABILITATION RVICES INITIAL EVALUATION MR#: [id number] Acct: [id number] Name: IRIS ARRIAGA Rep #: [id number] : 1940 75 From: Kelvin Newman Referring [...] Duration: 4-6 Weeks - Subjective Fell at [employer] in May and hurt head. Then p assed out shortly thereafter went to ER and was dehydrated. Went to Dr. vergara a couple weeks ago and was sent to ER for low blood pressure. Spent a few days in hospital and found that the pig valve is thickening. Will go to [place] later in month as Dr. Huang sent [...] Functional Training to Include: Gait training Comments: narrow YARIEL Thank you for the opportunity to evaluate your patient. For Medicare and Medicare HMO plans, please review the plan of care and approve it. It will need to be FAXED BACK to us at [phone] for Medicare purp oses. Please let me know if there are questions or concerns regarding this plan of care. Physician Signature: Date: <Electron ically signed by Kelvin Newman > 08/17/15 0944 CC: Minerva Vergara MD; Nerissa Bhat EBG Signed For Medicare only, by signing this I certify the plan of care. Physicians Signature Date 09-Aug-2015 Brain/Head without Contrast Result: Comments: See Note; NOTES: [facility] Imaging Services [address] [place] [address] Verdana 4d Brain/Head without Contrast MR#: [id number] Acct: [id number] Name: IRIS ARRIAGA Rep #: [id number] : 1940 F 75 From: Robert Osborn MD PCP: Minerva Vergara MD Status: REG Study: Brain/Head without Contrast Date of Exam: 08/09/15 Exam# [id number] Ordering D r: Sneha Baptiste MD STUDY: [...] at 13:15 EST Tel , Service support [phone], CC: Minerva sierra MD; Sneha Baptiste MD Gimp Buttonhole Machine Operator: Signed 09-Aug-2015 Chest 1 View (Portable) Result: Comments: See Note; NOTES: [facility] Imaging Services [address] [place] [address] Verdana 4d Chest 1 View (Portable) MR#: [id number] Acct: [id number] Name: IRIS WRAY Rep #: [id number] : 1940 F 75 From: Robert Osborn MD PCP: Minerva Vergara MD Status: REG ER Study: Chest 1 View (Portable) Date of Exam: 08/09/15 Exam# [id number] Ordering Dr: Sneha Baptiste MD STUDY: X-RAY [...] at 12:43 EST Tel , Service support [phone], RAD/Chest 1 View (Portable) IMPRESSION: No acute pulmonary process, no interval change Electronically Signed: Josesito Osborn MD at 12:43 EST Tel , Service support [phone], CC: Minerva Vergara MD; Sneha Baptiste MD Gimp Buttonhole Machine Operator: Signed 20-Jul-2015 Chest PA and Lateral Result: Comments: See Note; NOTES: [facility] Imaging Services [address] [place] [address] Verdana 4d Chest PA and Lateral MR#: [id number] Acct: [id number] Name: IRIS ARRIAGA Rep #: [id number] : 1940 F 75 From: Ed Fink MD PCP: Minerva Vergara MD Status: REG CLI Study: Chest PA and Lateral Date of Exam: 07/20/15 Exam# [id number] Ordering Dr: Minerva Amezquita MD STUDY: X-RAY [...] Ed Fink MD at 13:14 EST Tel [phone], Service support [phone], RAD/Chest PA and Lateral IMPRESSION: No acute abnormality is seen. Electronically Signed: Ed Fink MD at 13:14 EST Tel [phone] , Service support [phone], CC: Minerva Vergara MD Gimp Buttonhole Machine Operator: Signed 06-Jun-2015 Brain/Head without Contrast Result: Comments: See Note; NOTES: [facility] Imaging Services [address] [place] [address] Verdana 4d Brain/Head without Contrast MR#: [id number] Acct: [id number] Name: IRIS ARRIAGA Rep #: [id number] : 1940 F 75 From: Ed Fink MD PCP: Minerva Vergara MD Status: REG ER Study: Brain/Head without Contrast Date of Exam: 06/06/15 Exam# [id number] [place] ering Dr: Kermit Verduzco MD STUDY: CT BRAIN [...] Fink MD a t 16:13 EDT Tel [phone], Service support [phone], CC: Minerva Vergara MD; Kermit Verduzco MD Gimp Buttonhole Machine Operator: Signed 06-Jun-2015 Chest 1 View (Portable) Result: Comments: See Note; NOTES: [facility] Imaging Services [address] [place] [address] Verdana 4d Chest 1 View (Portable) MR#: [id number] Acct: [id number] Name: IRIS WRAY Rep #: [id number] : 1940 F 75 From: Farhad Cedillo MD PCP: Minerva Vergara MD Status: [facility] ER Study: Chest 1 View (Portable) Date of Exam: 06/06/15 Exam# [id number] Ordering Dr: Kermit Verduzco MD STUDY: X-RAY [...] at 17:06 EDT Tel , Service support [phone], [place] ER #: [id number] RAD/Chest 1 View (Portable) IMPRESSION: 1. Left-sided bipolar pacemaker seen with leads appearing in good position. 2. Moderate cardiomegaly. 3. Status post sternotomy changes. 4. There is no evidence of infiltrate, atelectasis, or pleural fluid. Electronically Signed: Farhad Cedillo MD at 17:06 EDT Tel , Service support [phone], Fax CC: Minerva Vergara MD; Kermti Verduzco MD Gimp Buttonhole Machine Operator: Signed 06-Jun-2015 Pelvis 1 or 2 Views Result: Comments: See Note; NOTES: [facility] Imaging Services [address] [place] [address] Verdana 4d Pelvis 1 or 2 Views MR#: [id number] Acct: [id number] Name: IRIS ARRIAGA Rep #: [id number] : 1940 F 75 From: Ed Fink MD PCP: Minerva Vergara MD Status: REG ER Study: Pelvis 1 or 2 Views Date of Exam: 06/06/15 Exam# [id number] Ordering Dr: Kermit Verduzco MD STUDY: X-RAY [...] Ed Fink MD at 16:15 EDT Tel [phone], Service support [phone], RAD/Pelvis 1 or 2 Views IMPRESSION: Status post bilateral total hip replacement. Elect ronically Signed: Ed Fink MD at 16:15 EDT Tel [phone], Service support [phone], CC: Minerva Vergara MD; Kermit Verduzco MD Gimp Buttonhole Machine Operator: Signed 06-Jun-2015 Spine Cervical without Contras Result: Comments: See Note; NOTES: [facility] Imaging Services [address] [place] [address] Verdana 4d Spine Cervical without Contras MR#: [id number] Acct: [id number] Na me: IRIS ARRIAGA Rep #: [id number] : 1940 F 75 From: Ed Fink MD PCP: Minerva Vergara MD Status: REG ER Study: Spine Cervical without Contras Date of Exam: 06/06/15 Exam# [id number]: Kermit Verduzco MD STUDY: [...] Ed Fink MD at 16:15 EDT Tel [phone], Service support [phone], CC: Minerva Vergara MD; Kermit Verduzco MD Gimp Buttonhole Machine Operator: Signed 19-Apr-2015 Spine Lumbar without Contrast Result: Comments: See Note; NOTES: [facility] Imaging Services [address] [place] [address] CAT Scan Report MR#: [id number] Acct: [id number] Name: IRIS ARRIAGA Rep #: [id number] : 1940 F 75 From: Tami Rodriguez MD PCP: Minerva Vergara MD Status: REG CLI Study: Spine Lumbar without Contrast Date of Exam: 04/19/15 Exam# [id number] Ordering Dr: Codie Collins o. STUDY: CT LUMBAR SPINE WITHOUT CONTRAST [...] at 14:58 EDT Tel , Service support [phone], CC: Minerva Vergara MD; OUT OF TOWN DOCTOR Gimp Buttonhole Machine Operator: Signed 19-Apr-2015 Lumbar Myelogram Result: Comments: See Note; NOTES: [facility] Imaging Services [address] [place] [address] Radiology Report MR#: [id number] Acct: [id number] Name: IRIS ARRIAGA Rep #: [id number] : 1940 F 75 From: Tami Rodriguez MD PCP: Minerva Vergara MD Status: REG CLI Study: Lumbar Myelogram Date of Exam: 04/19/15 Exam# [id number] Ordering Dr: CRISTIAN COFFEY CLINICAL HISTORY : [...] at 15:12 EDT Tel , Service support [phone], RAD/Lumbar Myelogram IMPRESSI ON: There is severe spinal canal stenosis at L4-5. Electronically Signed: Jessy Rodriguez MD at 15:12 EDT Tel , Service support [phone], CC: Gina Vergara MD; CRISTIAN COFFEY Gimp Buttonhole Machine Operator: Signed 10-Apr-2015 Discharge Instruction Result: Comments: See Note; NOTES: [facility] Medical Records Department [address] [place] [address] Discharge Instruction 04/03/15 1440 MR#: [id number] Acct: [id number] Name: IRIS ARRIAGA Rep #: [id number] : 1940 75 From: Ellen Gilman MD [...] problems, contact your doctor. Call [facility] ([phone]) or report to the closest Emergency Room. Call 911 if necessary. 04/03/15 1441 <Electronically signed by Ellen Gilman MD> Date Ellen Gilman MD 04/10/15 0835<Electronically signed Juli Polanco MD> Cosigner Signature (If Indicated): Date Rickie Polanco MD CC: Minerva Vergara MD 10-Apr-2015 Discharge Instruction Result: Comments: See Note; NOTES: [facility] Medical Records Department [address] [place] [address] Discharge Instruction 04/03/15 1448 MR#: [id number] Acct: [id number] Name: IRIS ARRIAGA Rep #: [id number] : 1940 75 From: Rickie Polanco MD PCP: Minerva Vergara MD Status: DEP ER ED Disposition - Plan for ED Patient: Disposition: Home or Assisted Living [facility] Complaint: Lower Extremity Injury Instructions: ED [...] problems, contact your doctor. Call [facility] ([phone]) or report to the closest Emergency Room. Call 911 if necessary. 04/10 0835 <Electronically signed by Rickie Polanco MD> Date Rickie Polanco MD Cosigner Signature (If Indicated): Date CC: Minerva Vergara MD 10-Apr-2015 Emergency Department Summary Result: Comments: See Note; NOTES: [facility] Medical Records Department [address] [place] [address] Emergency Department Summary MR#: [id number] Acct: [id number] Name: IRIS VALENCIA Rep #: [id number] : 1940 75 From: Ellen Gilman MD [...] chest pain, acute. Ellen Gilman MD T: [facility] JOB: [id number] 04/05/15 0836 <Electronically signed by Ellen Gilman MD> Date Ellen Gilman MD 04/10/15 0835 <Electronically signed by Natanael Polanco MD> Cosigner Signature (If Indicated): Date Rickie Polanco MD CC: Minerva Vergara MD Date Dictated: 04/03/151454 Date Transcribed: 04/03/151454 Gimp Buttonhole Machine Operator: Signed 04-Apr-2015 12 Lead Electrocardiogram Result: Comments: See Note; NOTES: [facility] Cardiovascular Services [address] [place] [address] 12 Lead EKG 04/03/15 135 MR#: [id number] Acct: [id number] Name: IGGY ARRIAGA Rep #: [id number] : 1940 75 From: Gurdeep Huang MD [...] ECG Confirmed by REINA TIRADO, GURDEEP ([id number]), editor index CAROLEE MARIEE ([id number]) on 04/04/2015 10:27:52 AM Referred By: VALENTINA Confirmed By:GURDEEP HUANG MD 04/04/15 1027 Date Gurdeep Huang MD CC: Minerva Vergara MD Date Dictated: 04/03/15 135 Date Transcribed: 04/03/151350 Gimp Buttonhole Machine Operator: Signed 03-Apr-2015 Femur 2 Views Result: Comments: See Note; NOTES: [facility] Imaging Services [address] [place] [address] Radiology Report MR#: [id number] Acct: [id number] Name: IRIS ARRIAGA Rep #: [id number] : 1940 75 From: Ed Fink MD PCP: Minerva Vergara MD Status: REG ER Study: Femur 2 Views Date of Exam: 04/03/15 Exam# [id number] Ordering Dr: Rickie Polanco MD STUDY: X- [...] No acute abnormality is seen. Electronically Signed: dE Fink MD at 12:59 EDT Tel [phone], Service support [phone], RAD/ Femur 2 Views IMPRESSION: No acute abnormality is seen. Electronically Signed: Ed Fink MD at 12:59 EDT Tel [phone], Service support [phone], CC: Minerva Vergara MD; Rickie Polanco MD Gimp Buttonhole Machine Operator: Signed 03-Apr-2015 Chest PA and Lateral Result: Comments: See Note; NOTES: [facility] Imaging Services [address] [place] [address] Radiology Report MR#: [id number] Acct: [id number] Name: IRIS ARRIAGA Rep #: [id number] : 1940 75 From: Ed Fink MD PCP: Minerva Vergara MD Status: REG ER Study: Chest PA and Lateral Date of Exam: 04/03/15 Exam# [id number] Ordering Dr: Ellen Gilman MD STUD Y: X-RAY CHEST REASON FOR EXAM: Female, 75 years old. Chest pain and chest tightness. TECHNIQUE: AP and lateral views of the chest. COMPARISON: Comparison is made with prior examination dated [facility] 2014. FINDINGS: There is blunting of [...] of both costophrenic angles. Electronically Signed: Ed Fnik MD at 13:05 EDT Tel [phone], Service support [phone], Fax RAD/Chest PA and Lateral IMPRESSION: Mild degree of linear scarring at the lung bases and blunting of both costophrenic angles. Electronically Signed: Ed ledezma MD at 13:05 EDT Tel [phone], Service support [phone], CC: Ellen Gilman MD; Minerva Vergara MD Gimp Buttonhole Machine Operator: Signed 27-Mar-2015 Abd Inc Decub and/or Erect Result: Comments: See Note; NOTES: [facility] Imaging Services [address] [place] [address] Radiology Report MR#: [id number] Acct: [id number] Name: IRIS ARRIAGA Rep #: [id number] : 1940 F 75 From: Tylor Guzman DO PCP: Minerva Vergara MD Status: REG CLI Study: Abd Inc Decub and/or Erect Date of Exam: 03/27/15 Exam# [id number] Ordering Dr: Ida Quiñonez DO STUDY: X- [...] Guzman DO at 18:34 EDT Te l [phone], Service support [phone], 0093 RAD/Abd Inc Decub and/or Erect IMPRESSION: No acute abdominal pathology is noted. Electronically Signed: Tylor Guzman DO at 18:34 EDT Tel [phone], Service support [phone], CC: Minerva Vergara MD; Ida Quiñonez DO Gimp Buttonhole Machine Operator: Signed 20-Mar-2015 PT Discharge Summary Result: Comments: See Note; NOTES: [facility] Physical Therapy [facility] [address] [place] [address]. [address] [place] [address] Fax REHABILITATION SERVICES DISCHARGE SUMMARY MR#: [id number] Acct: [id number] Name: IRIS ARRIAGA Rep #: [id number] : 1940 75 From: Kelvin Newman Referring [...] program. Kelvin Newman, PT T: NTS JOB: [id number] <Electronically signed by Kelvin Newman > 03/20/15 0648 CC: Signed 25-Jan-2015 Chest PA and Lateral Result: Comments: See Note; NOTES: [facility] Imaging Services [address] [place] [address] Radiology Report MR#: [id number] Acct: [id number] Name: IRIS ARRIAGA Rep #: [id number] : 1940 F 75 From: Apolinar Ansari DO PCP: Minerva Vergara MD Status: REG CLI Study: Chest PA and Lateral Date of Exam: 01/25/15 Exam# [id number] Ordering Dr: Gurdeep Huang MD STUD Y: [...] at 5:42 EDT Tel , Service support [phone], RAD/Chest PA and Lateral IMPRESSION: Very minimal left basilar atel ectasis. Otherwise, no acute process. Electronically Signed: Apolinar DO Elan at 5:42 EDT Tel , Service support [phone], CC: Minerva Vergara MD; Gurdeep Huang MD Gimp Buttonhole Machine Operator: Signed 24-Jan-2015 Pulmonary Function Report Comp Result: Comments: See Note; NOTES: [facility] Pulmonary Services/Neurology [address] [place] [address] Pulmonary Function Test (Comp) MR#: [id number] Acct: [id number] Name: IRIS ARAUJO Rep #: [id number] : 1940 75 From: Jeremie Schultz MD Referring Dr: Peace Curran Status: REG CLI Ordering Dr: Peace Curran Date: 01/18/15 Location: [facility] Sex: F C MAI E OF SERVICE: [...] MD C C: Gurdeep Huang MD T: [facility] JOB: [id number] SPIROMETRY Ref ULN/LLN Pre Pre Post Post [...] MD Date Dictated: 01/19/151645 Date Transcribed: 01/19/151645 Gimp Buttonhole Machine Operator: Signed 19-Jan-2015 Inital Evaluation - PT Result: Comments: See Note; NOTES: [facility] Physical Therapy [facility] [address] [place] [address]. [address] [place], [place] [address] Fax REHABILITATION SERVICES INITIAL EVALUATION MR#: [id number] Acct: [id number] Name: IRIS ARRIAGA Rep #: [id number] : 1940 75 From: Kelvin Newman Referring Dr.: Minerva Vergara MD Status: REG R Insurance: [facility] MEDICARE PPO Eval Date: ANTH Patient's Visit [...] reading and walking with . Shops with hubby, no AD. - Objective Objective: Ambulates with [...] Physicians Signature Date 10-Jan-2015 ELECTROCARDIOGRAM, COMPLETE (ECG) (83716) Result: [MEASUREMENTS ANALYSIS] Date of Test: 08/09/2015 10:29:14; Heart Rate: 78; W[place] Interval: 230; QRS: 114; QT Interval: 438; Corrected QT Interval (QTc): 469; P Wave [place]: 69; QRS [place]: -7; T Wave [place] : 22; Blood Pressure: 140/90 [ECG DIAGNOSTIC STATEMENTS] Date of Test: 08/09/2015 10:29:14; Summary: Sinus Rhythm -First degree A-V block -Frequent pvcs - ventricular bigeminy Viridiana = 230- Nonspecific T-abnormality. ABNORMAL [MEASUREMENTS ANALYSIS] Date of Test: 08/09/2015 10:29:10; Heart Rate: 78; [place] Interval: 230; QRS: 114; QT Interval: 438; Corrected QT Interval (QTc): 469; P Wave [place]: 69; QRS [address] [place]: -7; T Wave [place]: 22; Blood Pressure: 140/90 [ECG DIAGNOSTIC STATEMENTS] Date of Test: 08/09/2015 10:29:10; Summary: Sinus Rhythm -First degree A-V block -Frequent pvcs -ventricular bigeminy Viridiana = 230- Nonspecific T- abnormality. ABNORMAL 05-Jan-2015 PT Discharge Summary Result: Comments: See Note; NOTES: [facility] Physical Therapy [facility] [address] [place] [address]. [address] [place] [address] Fax REHABILITATION SERVICES DISCHARGE SUMMARY MR#: [id number] Acct: [id number] Name: IRIS ARRIAGA Rep #: [id number] : 1940 74 From: Kelvin Newman Referring [...] follow up with her family doctor, Dr. Vergaar, regarding these issues and certainly recommend balance [...] program. Kelvin Newman, PT T: [facility]ORI JOB: [id number] <Electronically signed by Kelvin Newman > 01/05/15 0931 CC: Signed 24-Nov-2014 Inital Evaluation - PT Result: Comments: See Note; NOTES: [facility] Physical Therapy [facility] [address] [place] [address] Fax REHABILITATION SERVICES INITIAL EVALUATION MR#: [id number] Acct: [id number] Name: IRIS ARRIAGA Rep #: [id number] : 1940 74 From: Kelvin Newman Referring DrTammi: Tiffanie Saha DO Status: REG RCR Insurance: [employer]IC[employer] PPO Eval Date: ANTH DATE OF SERVICE: 11/23/2014 PHYSICIAN: Dr. Saha [...] is sleepin g well. She is a [employer] member here at [facility], but has not worked out here much [...] heat. Kelvin Newman, PT T: NTS JOB: [id number] <Electronically signed by Kelvin Newman > 11/24/14 0940 CC: Signed For [facility] only, by signing this I certify the plan of care. Physicians Signature Date 04-Nov-2014 Abdomen Single View Result: Comments: See Note; NOTES: [facility] Imaging Services [address] [place] [address] Radiology Report MR#: [id number] Acct: [id number] Name: IRIS ARRIAGA Rep #: [id number] : 1940 F 74 From: Ed Fink MD PCP: Minerva Vergara MD Status: REG CLI Study: Abdomen Single View Date of Exam: 11/04/14 Exam# [id number] Ordering Dr: Minerva Vergara MD STUDY : [...] Ed Fink MD at 14:10 EDT Tel [phone], Service support [phone], Fax RAD/Abdomen Single View IMPRESSION: Moderate amount of fecal material is seen throughout the colon. Electronically Signed: Ed Fink MD at 14: 10 EDT Tel [phone], Service support [phone], CC: Minerva Vergara MD Gimp Buttonhole Machine Operator: Signed 04-Nov-2014 Shoulder min 2 Views Result: Comments: See Note; NOTES: [facility] Imaging Services [address] [place] [address] Radiology Report MR#: [id number] Acct: [id number] Name: IRIS ARRIAGA Rep #: [id number] : 1940 F 74 From: Ed Fink MD PCP: Minerva Vergara MD Status: REG CLI Study: Shoulder min 2 Views Date of Exam: 11/04/14 Exam# [id number] Ordering Dr: Minerva Vergara MD STUD Y: [...] Ed Fink MD at 14:11 EDT Tel [phone], Service support [phone], CC: Minerva Vergara MD Gimp Buttonhole Machine Operator: Signed 21-Oct-2014 Echocardiogram Complete Result: Comments: See Note; NOTES: [facility] Cardiovascular Services [address] [place] [address] Echo Complete 10/19/14 1314 MR#: [id number] Acct: [id number] Name: CATHLEEN ARRIAGA Rep #: [id number] : 1940 74 From: Gurdeep Huang MD Attending Dr: Gurdeep Huang MD Status: REG CLI Ordering Dr: Gurdeep Huang MD Date: 10/19/14 Location: [facility] Sex: F C Admitted: Procedure This was [...] MV V2 max: 216.8 cm/secMV P1/2t max shnaice: Ao V2 max: 106.1 cm/sec 198.8 cm/se [...] Physician: Lo Huang Performed By: Jeanine Arenas [facility] 10/19/14 1741 Date Gurdeep Huang MD CC: Minerva Vergara MD; Gurdeep Huang MD Date Dictated: 10/19/14 1314 Date Transcribed: 10/19/14 1741 Gimp Buttonhole Machine Operator: Signed 23-Sep-2014 12 Lead Electrocardiogram Result: Comments: See Note; NOTES: [facility] Cardiovascular Services [address] [place] [address] 12 Lead EKG 09/22/14 1440 MR#: [id number] Acct: [id number] Name: JARON ARRIAGA Rep #: [id number] : 1940 74 From: Peewee Cotto MD [...] Abnormal ECG Confirmed by PEEWEE COTTO ([id number]), editor index CAROLEE MARIEE ([id number]) on 09/23/2014 2: 44:4 7 PM Referred By: TRAV Confirmed By:PEEWEE COTTO 09/23/14 1444 Date Peewee Cotto MD CC: Minerva Vergara MD Date Dictated: 09/22/14 1440 Date Transcribed: 09/22/14 1440 Gimp Buttonhole Machine Operator: Signed 22-Sep-2014 Discharge Instruction Result: Comments: See Note; NOTES: [facility] Medical Records Department [address] [place] [address] Discharge Instruction 09/22/14 1616 MR#: [id number] Acct: [id number] Name: IRIS ARRIAGA Rep #: [id number] : 1940 74 From: Kermit Verduzco MD PCP: Minerva Vergara MD Status: DEP ER ED Disposition - Plan for ED Patient: Disposition: Home Chief Complaint: Sync ope Instructions: ED Hypotension, Orthostatic What to do if you have Problems For any increased pain, shortness of breath, bleeding, nausea or vomiting, chest pain, or any unexpected problems, co ntact your doctor. Call [facility] ( [phone]) or report to the closest Emergency Room. Call 911 if necessary. 09/22/14 1725 <Electronically signed by Kermit Verduzco MD> Date Kermit Verduzco MD Cosigner Signature (If Indicated): Date CC: Minerva Vergara MD 22-Sep-2014 Emergency Department Summary Result: Comments: See Note; NOTES: [facility] Medical Records Department [address] [place] [address] Emergency Department Summary MR#: [id number] Acct: [id number] Name: IRIS ARRIAGA Rep #: [id number] : 1940 74 From: Kermit Verduzco MD [...] stood up quickly and went over to belt maker, 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 She [...] Discharge. Kermit Verduzco MD T: NTS JOB: [id number] 09/22/14 2785 <Electronically signed by Kermit Verduzco MD> Date Kermit Verduzco MD CC: Minerva Vergara MD Date Dictated: 09/22/141614 Date Transcribed: 09/22/141614 Gimp Buttonhole Machine Operator: Signed 22-Sep-2014 Chest PA and Lateral Result: Comments: See Note; NOTES: [facility] Imaging Services [address] [place] [address] Radiology Report MR#: [id number] Acct: [id number] Name: IRIS ARRIAGA Rep #: [id number] : 1940 F 74 From: Ed Fink MD PCP: Minerva Vergara MD Status: REG ER Study: Chest PA and Lateral Date of Exam: 09/22/14 Exam# [id number] Ordering Dr: Kermit Verduzco MD ROWAN DY: [...] CC: Minerva Vergara MD; Kermit Verduzco MD Gimp Buttonhole Machine Operator: Signed Family History Unknown Family Member [...] Status: 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 criteria.Please note revised GLUCOSE reference range acxolqbmd49/02/2018. 7-Kjs-375678:10 CBC W/Diff, Automated Comments: [facility] [address] [place], [place], [id number] Absolute Lymph 1.12 {X10_3/ul} (Normal) Range: 0.83-4.51 [...] 4.2-5.4 WBC 8.5 K/mm3 (Normal) Range: 4.4-11.0 4-Tfr-141833:10 Liver Profile Comments: [facility] [address] [place], [place], [address] D BILI 0.14 mg/dL (Normal) Range: 0.00-0.30 T BILI 0.50 mg/dL (Normal) Range: 0.20-1.00 ALT 26 U/L (Normal) Range: 13-56 ALK P 78 U/L (Normal) Range: 45-117 AST 30 U/L (Normal) Range: 15-37 GLOB 4.3 g/dL (Abnormal) Range: 2.2-4.2 ALB 3.7 g/dL (Normal) Range: 3.2-5.0 T PROT 8.0 g/dL (Normal) Range: 6.4-8.2 6-Cuh-818948:10 Partial Thromboplast Time Comments: [facility] [address] [place], [place], [address] PTT 27.7 s (Normal) Range: 24.1-36.2 6-Iih-794904:10 Prothrombin Time w/INR Comments: [facility] [address] [place], [place], [address] INR 1.4 (Normal) PROTIME 17.1 s (Abnormal) Range: 11.7-14.9 99-Lkm-289076:20 Metabolic Panel, Basic Comments: PATIENT NOT FASTINGPERFORMED BY: [facility] Dxejmm7834 [facility] [id number] ([id number]) Calcium 9.4 mg/dL (Normal) Range: 8.7-10.3 Carbon [...] 8-27 Glucose 72 mg/dL (Normal) Range: 65-99 79-Ily-77416:13 Pathology Report Comments: PERFORMED BY: DENZEL [facility] [place] Gdei6662 [facility] [id number] BY: KWCYT [facility] Marston Cyto Chxoz74829 [facility] [id number] Clinical Information: [id number] See MATER Comments: Material submitted: .ABDOMINAL BIOPSYClinical [...] ENTIRELY SUBMITTEDIN ONE CASSETTE.BCO/SMIPathologist provided ICD-10:D21.4, L82.1CPT .727181 33-Brb-139168:35 Comprehensive Metabolic Profil Comments: [facility] [address] [place], [place], [address] GAP 8 (Normal) Range: 5-15 CO2 33.0 mmol/L (Abnormal) Range: 21.0-32.0 CL 95 mmol/L (Abnormal) Range: 98-107 K 3.6 mmol/L (Normal) Range: 3.5-5.1 NA 136 mmol/L (Normal) Range: 136-145 T BILI 0.70 mg/dL (Normal) Range: 0.20-1.00 ALT 23 U/L (Normal) Range: 13-56 Comments: Please note revised ALT reference range nlzljteoa67/28/2018. ALK P 79 U/L (Normal) Range: 45-117 [...] Comments: Please note revised GLUCOSE reference range tjeyumqjo20/02/2018. 43-Lqi-766722:35 Phosphorus Comments: [facility] [address] [place], [place], [address] PHOS 4.0 mg/dL (Normal) Range: 2.5-4.9 02-Gjo-964677:35 Uric Acid Comments: [facility] [address] [place], [place], [address] URIC 10.9 mg/dL (Abnormal) Range: 2.6-6.0 Comments: The drugs N-Acetylcysteine and Metamizole may falselydepress this assay. 61-Zrj-407991:19 Metabolic Panel, Comments: fax a copy to Dr. Tucker [phone] Huang [phone]; A courtesy copy of this report has been sent [phone], .PATIENT NOT FASTINGPERFORMED BY: [facility] Dub mu9431 [facility] ([id number]) x [facility] [id number] Information: HARD DRAW/BUTTERFLY ALT (SGPT) 19 [iU]/L [...] Glucose, Serum 97 mg/dL (Normal) Range: 65-99 76-Hdu-348424:56 Basic Metabolic Profile (BMP) Comments: Order Date: 08/07/17Order Info: 0667-1 - BMPComments: now stat and prnWCleveland Clinic Hillcrest Hospital [address]mzrim[address] [place], [place], [address] GAP 8 (Normal) Range: 5-15 CO2 29.0 [...] 7-18 GLU 80 mg/dL (Normal) Range: 70-110 13-Wkk-667284:23 CREATININE FINGERSTICK Comments: [facility] LaboratoryPoint of Gtmb[address] [place], [place] [address] CREATININE WB 1.3 mg/dL (Abnormal) Range: 0.55-1.02 11-Sep-20171:20 CBC WITH MANUAL DIFF Comments: PATIENT NOT FASTINGPERFORMED BY: [facility] Fgpnqy4627 [facility] [id number] Information: NURSE DRAW (98876) Immature Grans (Abs) 0.0 {x10E3/uL} (Normal) Range: [...] Panel, Comprehensive Comments: PATIENT NOT FASTINGPERFORMED BY: [facility]CoKessler Institute for RehabilitationPfvmde8205 [facility] [id number] (51824) ALT (SGPT) 11 [iU]/L (Normal) Range: 0-32 [...] 101 mg/dL (Abnormal) Range: 65-99 11-Sep-20171:20 URINALYSIS (86491) Comments: PATIENT NOT FASTINGPERFORMED BY: [facility]CoKessler Institute for RehabilitationUxpmyg6850 [facility] [id number] Microscopic Examination MICNIP (Normal) Comments: Microscopic not indicated and not performed. Nitrite, Urine Negative (Normal) Urobilinogen,Semi-Qn 1.0 mg/dL (Normal) Range: 0.2-1.0 Bilirubin Negative (Normal) Occult Blood Negative (Normal) Ketones Negative (Normal) Glucose Negative (Normal) Protein Trace (Normal) WBC Esterase Negative (Normal) Appearance Clear (Normal) Urine-Color Yellow (Normal) pH 7.0 (Normal) Range: 5.0-7.5 Specific [place] 1.018 (Normal) Range: 1.005-1.030 3-Neg-313100:34 Basic Metabolic Profile (BMP) Comments: [facility] [address] [place], [place], [address] GAP 10 (Normal) Range: 5-15 CO2 26.0 [...] 7-18 GLU 92 mg/dL (Normal) Range: 70-110 89-Eny-325559:03 Basic Metabolic Profile (BMP) Comments: Order Date: 05/01/17Order Info: 0667-1 - *BMPComments: Reason:[facility] [address] [place], [address] GAP 5 (Normal) Range: 5-15 CO2 28.0 [...] 7-18 GLU 64 mg/dL (Abnormal) Range: 70-110 18-Dam-069008:16 Renal function Panel (17586) Comments: PATIENT NOT FASTINGPERFORMED BY: [facility]CoK[facility] Institute for RehabilitationKcmozs5503 [facility] [id number] Albumin, Serum 4.3 g/dL (Normal) Range: 3.5-4.8 [...] Glucose, Serum 91 mg/dL (Normal) Range: 65-99 34-Zvo-56948:15 Urinalysis, Complete Comments: Order Date: 03/31/17How was Urine Obtained? 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, [address] MUCUS, URINE 0 SEEN {/hpf} [...] Comments: Yes/No query for Sepsis Lactate Rule [facility] [address] [place], [address] LACTIC ACID 0.8 mmol/L (Normal) Range: 0.4-2.0 :39 BNP,B-Type NATRIURETIC PEPTIDE Comments: [facility] [address] [place], [address] B-TYPE HUMBLE PEP 1017.0 pg/mL (Abnormal) Range: 0-100 :39 CBC W/Diff, Automated Comments: [facility] [address] [place], [address] ANISO 1+ (Normal) Absolute Lymph [...] Serial specimen #1, #2, #3, or #4: 1WCleveland Clinic Hillcrest Hospital [address]zdcak[address] [place], [place], [address] GAP 8 (Normal) Range: 5-15 CO2 26.0 [...] Serial specimen #1, #2, #3, or #4: 1WCleveland Clinic Hillcrest Hospital Botlrpsgme35[address] [place], [place], [address] TROPONIN-I 0.06 ng/mL (Normal) Comments: TROPONIN-I EXPECTED VALUES <0.05 NEGATIVE 0.06 - 0.59 AT RISK OF NV > OR = 0.60 SUGGEST NV :03 Bedside Glucose Comments: [facility] LaboratoryPoint of Hiav[address] [place] [address] BEDSIDE GLU 146 mg/dL (Abnormal) Range: 70-110 Comments: MANAGEMENT OF PATIENT CARE PER NURSING PROTOCOL 79-Ukl-206940:25 Vitamin D,25 Hydroxy Comments: Order Date: 01/17/17Order Info: 0788-1 - *Hepatic Function Panel3 ORDERING DOCTORS:REINA REID ORDERED: LIVER LIPIDDR.CAITLIN ORDERD: BMPMARY CIESA ORDERED: TSH, VITD, A6VXtaqpsaKettering Health [facility] pital Labora [address] [place], [address] Vitamin D 25-OH 35.2 ng/mL (Normal) Comments: Vitamin D 25(OH) Status Range Deficiency <20 ng/mL (50nmol/L) Insuffciency 20 - 30 ng/mL (50 - 75 nmol/L) Sufficiency 30 - 100 ng/mL (75 - 250 nmol/L) Toxicity >100 ng/mL (>250 nmol/L) 00-Xix-911240:20 Basic Metabolic Profile (BMP) Comments: Order Date: 01/17/17Order Info: 0788-1 - *Hepatic Function Panel3 ORDERING DOCTORS:REINA REID ORDERED: LIVER LIPIDDRSTANISLAV ORDERD: BMPMEMO CIGLENYSA ORDERED: TSH, VITD, L9GGbfwu Date: 01/17/17Order Info: 50586-6 - *Lipid Profile CC PCPComments: 12 hours fasting, may have water.[facility] [address]cm[address] [place], [address] GAP 6 (Normal) Range: 5-15 CO2 31.0 [...] 7-18 GLU 109 mg/dL (Normal) Range: 70-110 44-Vhn-295703:20 Lipid Profile Comments: Order Date: 01/17/17Order Info: 0788- 1 - *Hepatic Function Panel3 ORDERING DOCTORS:REINA REID ORDERED: LIVER LIPIDDR.NOVY ORDERD: BMPMARY CIESA ORDERED: TSH, VITD, D3TWndmk Date: 01/17/17 Order Info: 58445-6 - *Lipid Profile CC PCPComments: 12 hours fasting, may have water.[facility] [address] [place], [place], [address] VLDL 20 mg/dL (Normal) Range: 5-40 LDL [...] 200-240 mg/dL Borderline >240 mg/dL High Risk 34-Jju-402693:20 Liver Profile Comments: Order Date: 01/17/17Order Info: 0788- 1 - *Hepatic Function Panel3 ORDERING DOCTORS:REINA REID ORDERED: LIVER LIPIDDR.NOVY ORDERD: BMPMARY CIESA ORDERED: TSH, VITD, S6DBuzxv Date: 01/17/17 Order Info: 49705-5 - *Lipid Profile CC PCPComments: 12 hours fasting, may have water.[facility] [address] [place], [place], [address] D BILI 0.24 mg/dL (Normal) Range: 0.00-0.30 T BILI 0.60 mg/dL (Normal) Range: 0.20-1.00 ALT 27 U/L (Normal) Range: 12-78 ALK P 84 U/L (Normal) Range: 45-117 AST 27 U/L (Normal) Range: 15-37 GLOB 3.7 g/dL (Abnormal) Range: 2.3-3.5 ALB 3.8 g/dL (Normal) Range: 3.4-5.0 T PROT 7.5 g/dL (Normal) Range: 6.4-8.2 33-Xre-660922:20 T4 Free Direct Comments: Order Date: 01/17/17Order Info: 0788- 1 - *Hepatic Function Panel3 ORDERING DOCTORS:REINA REID ORDERED: LIVER LIPIDDR.NOVY ORDERD: BMPMARY CIESA ORDERED: TSH, VITD, E9CZvpap Date: 01/17/17 Order Info: 78957-3 - *Lipid Profile CC PCPComments: 12 hours fasting, may have water.[facility] [address] [place], [place], [address] T4 FREE DIRECT 1.51 ng/dL (Abnormal) Range: 0.76-1.46 25-Rmk-799952:20 Thyroid Stim Hormone (TSH) Comments: Order Date: 01/17/17Order Info: 0788-1 - *Hepatic Function Panel3 ORDERING DOCTORS:REINA REID ORDERED: LIVER LIPIDDR.NOVY ORDERD: BMPMARY CIESA ORDERED: TSH, VITD, L8EZvgrb Date: 01/17/17Order Info: 88251-5 - *Lipid Profile CC PCPComments: 12 hours fasting, may have water.[facility] [address] [place], [address] TSH 3.02 {uIU/mL} (Normal) Range: 0.358-3.74 44-Zwj-360218:00 Pathology Report Comments: PERFORMED BY: AptelaCYT [facility] Mezlm53653 [facility] [id number] BY: [facility] Anterwz586 [facility] [address]AK[facility] [id number] Information: [id number] See MATER Comments: Material submitted: .SHAVE BIOPSY OF RIGHT ABDOMENClinician provided ICD-10:L82.1Clinical history: . Note (Normal) Diagnosis:BENIGN VERRUCAL KERATOSIS.02/08/2017Electronically signed: .Gege Reece MD, DermatopathologistGross description: .SUBMITTED IN FORMALIN LABELED IRIS ARRIAGA AND IS DESIGNATEDRIGHT ABDOMEN IS A FRAGMENT OF FERGUSON TISSUE THAT MEASURES 1.4 X .8X .3 CM. THE MARGINS ARE INKED BLUE. THE SPECIMEN IS TRISECTEDAND SUBMITTED IN TOTO.XJW/BXSPathologist provided ICD-10:D23.5CPT .860255 25-Noj-898333:12 Basic Metabolic Profile (BMP) Comments: Order Date: 01/15/17Order Info: 0667-1 - *BMPComments: Reason:[facility] [address] [facility] [place], [place], [address] GAP 5 (Normal) Range: 5-15 CO2 32.0 [...] 7-18 GLU 82 mg/dL (Normal) Range: 70-110 4-Ogq-532334:04 Basic Metabolic Profile (BMP) Comments: Order Date: 01/08/17Order Info: 0667-1 - *BMPComments: Reason: BMP: 1 weekH[facility] [address]fsxmyde8[address] [place], [place], [address] GAP 11 (Normal) Range: 5-15 CO2 28.0 [...] <126 mg/dLsuggests IMPAIRED HOMEOSTASIS per A.D.A. criteria. 30-Oda-183752:28 Lipid Profile Comments: Order Date: 06/18/16Order Info: 0788- 1 - *Hepatic Function PanelLIVER AND LIPID WERE ORDERED BY ATININE LEVEL ORDERED BY Date: 06/18/16Order Info: 08556-9 - *Lipid Profi le CC PCPComments: 12 hours fasting, may have water.[facility] [address] [place], [place], [address] VLDL 14 mg/dL (Normal) Range: 5-40 LDL [...] 200-240 mg/dL Borderline >240 mg/dL High Risk 43-Ykf-383651:28 Liver Profile Comments: Order Date: 06/18/16Order Info: 0788- 1 - *Hepatic Function PanelLIVER AND LIPID WERE ORDERED BY ATININE LEVEL ORDERED BY Date: 06/18/16Order Info: 66289-7 - *Lipid Profi le CC PCPComments: 12 hours fasting, may have water.[facility] [address] [place], [place], [address] D BILI 0.48 mg/dL (Abnormal) Range: 0.00-0.30 T BILI 1.10 mg/dL (Abnormal) Range: 0.20-1.00 ALT 62 U/L (Normal) Range: 12-78 ALK P 94 U/L (Normal) Range: 45-117 AST 59 U/L (Abnormal) Range: 15-37 GLOB 3.3 g/dL (Normal) Range: 2.3-3.5 ALB 3.7 g/dL (Normal) Range: 3.4-5.0 T PROT 7.0 g/dL (Normal) Range: 6.4-8.2 23-Yst-188192:28 Serum Creatinine AND GFR Comments: Order Date: 11/08/16Order Info: 0788-1 - *Hepatic Function PanelLIVER AND LIPID WERE ORDERED BY ATININE LEVEL ORDERED BY Date: 06/18/16Order Info: 69541-8 - *Lipid Luther Wilhelm PCPComments: 12 hours fasting, may have water.[facility] [address] [place], [place], [address] EST GFR - AA 52 mL/min (Abnormal) Comments: GFR Calc EST GFR 43 mL/min (Abnormal) Comments: Non- GFR Calc CREAT,SERUM 1.29 mg/dL (Abnormal) Range: 0.55-1.02 Comments: The validity of the calculated GFR AND GFRAA in patients over70 years has not been determined. Clinical correlation isessential. 98-Fag-625592:36 Anticardiolipin IgA,G,M Comments: [facility] (refer to report [...] Positive: >20 - 80 High Positive: >80 17-Yad-496551:36 Comprehensive Metabolic Profil Comments: [facility] [address] [place], [place], [address] GAP 4 (Abnormal) Range: 5-15 CO2 26.0 [...] 7-18 GLU 103 mg/dL (Normal) Range: 70-110 69-Sdd-444749:36 Fact V Leiden Mutation Comments: [facility] (refer to report for specific site)refer to report for address and phone number COMMENT (Normal) Comments: Comment:Genetic counselors are available for health care providersto discuss results at [phone]).Methodology:DNA analysis of the Factor V gene was [...] PhD, Cinthya May, PhD, Wilbur Clemente, PhD, Clair KelloggSTammi, PhD, Lilia Way, PhD, Kaia Reynaga, PhD, Richard Juarez PhD, [facility] FACTOR V LEIDEN (Normal) Comments: Result: Negative [...] in the workup for venous thrombosis include [id number] mutation in the factor II (prothrombin) gene,protein S and C deficiency, and antithrombin deficiencies.Anticardiolipin antibody and lupus 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 an alysismay be appropriate for certain patients, as well ashomocysteine levels.Contact your local [facility] for information on how to orderadditional testing if desired. 27-Qrx-060225:36 Factor II, DNA Analysis Comments: [facility] (refer to report for specific site)refer to report for address and phone number COMMENT (Normal) Comments: Additional Information:Genetic Counselors are available for health care providersto discuss results at [phone]).Methodology:DNA analysis of the Factor II gene was [...] Drug Administration.Poort SR, et al. Blood. 1996; 88:7204-7102.Robert ARAIZA. Circulation. 2004; 110:e15-e18.Stanislav I, et al. Arterioscler Thromb Vasc Biol. 1999;19:700-703.Raul Cano, Ph D, Cinthya May, PhD, Wilbur Clemente, PhD, Marly Wen M.S., PhD, Lilia Way, PhD, Kaia Reynaga, PhD, Richard Juarez, PhD, [facility] COMMENT (Normal) Comments: Comment:A point mutation ([id number]) in the factor II (prothrombin)gene is the [...] individual mutations. This assay detects onlythe prothrombin X12744Q mutation and does not measuregenetic abnormalities elsewhere in the genome. Otherthrombotic r isk factors may be pursued through systematicclinical laboratory analysis. These factors include evyI565Y (Leiden) mutation in the Factor V gene, plasmahomocysteine levels, as well as testing for defici encies ofantithrombin III, protein C and protein S. FACTOR II,DNA (Normal) Comments: Factor II, DNA Analysis NEGATIVE No mutation identified. 77-Nzq-211660:36 Partial Thromboplast Time Comments: [facility] [address] [place], [place], [address] PTT 28.3 s (Normal) Range: 24.1-36.2 45-Wsl-461217:36 Prothrombin Time w/INR Comments: [facility] [address] [place], [place], [address](325) INR 1.3 (Normal) PROTIME 15.5 s (Abnormal) Range: 11.7-14.9 :39 CBC W/Diff, Automated Comments: Order Date: 12/02/16Order Info: 0184-1 - CBCDComments: coipy to Dr. jessie armendariz statOrder Date: 12/02/16Order Info: 0184-1 - CBCDComments: coipy to Dr. jessie armendariz statOrder Date: 12/02/16O rder Info: 0788-1 - LIVERComments: to stat copy to Dr. natalie armendarizHocking [facility] [address]wo[address] [place], [place], [address] Absolute Lymph 1.13 {X10_3/ul} (Normal) Range: 0.83-4.51 [...] 4.2-5.4 WBC 8.8 K/mm3 (Normal) Range: 4.4-11.0 39-Emo-95825:39 Liver Profile Comments: Order Date: 12/02/16Order Info: 0788-1 - LIVEROrder Date: 12/02/16Order Info: 0788-1 - LIVERComments: to stat copy to Dr. estrada [facility] [address]rbv[address] [place], [address] D BILI 0.28 mg/dL (Normal) Range: 0.00-0.30 T BILI 0.80 mg/dL (Normal) Range: 0.20-1.00 ALT 33 U/L (Normal) Range: 12-78 ALK P 71 U/L (Normal) Range: 45-117 AST 30 U/L (Normal) Range: 15-37 GLOB 2.9 g/dL (Normal) Range: 2.3-3.5 ALB 3.8 g/dL (Normal) Range: 3.4-5.0 T PROT 6.7 g/dL (Normal) Range: 6.4-8.2 87-Xdf-940704:38 URINE DAR CULTURE (NOREEN Comments: PATIENT NOT FASTINGPERFORMED BY: [facility] Mpnogv8045 [facility] [id number] Information: SRC:UC COL COUNT) (89678) Antimicrobial MIHEAD (Normal) Comments: S = Susceptible; [...] Date: 10/31/16Order Info: 0184-1 - CBCDOrder Info: [id number] - SEDOrder Date: 10/31/16Order Info: 0184-1 - CBCDOrder Info: 52394-2 - SEDOrder Date: 10/31/16Order Info: 3040-3 - LIPASEW [facility] [address] [place], [address] Absolute Lymph 1.10 {X10_3/ul} (Normal) Range: 0.83-4.51 [...] 4.2-5.4 WBC 11.1 K/mm3 (Abnormal) Range: 4.4-11.0 26-Srq-96097:33 Comprehensive Metabolic Profil Comments: Order Date: 10/31/16Order Info: 0786-1 - CMPOrder Info: 1798-8 - AMYOrder Info: 3040-3 - LIPASEOrder Date: 10/31/16Order Info: 3040-3 - LIPASEComments: all [facility] [address]ggd[address] [place], [place], [address] GAP 10 (Normal) Range: 5-15 CO2 26.0 [...] 7-18 GLU 86 mg/dL (Normal) Range: 70-110 62-Rcg-63248:33 Erythrocyte Sed Rate Comments: Order Date: 10/31/16Order Info: 0184-1 - CBCDOrder Info: 27830-6 - SEDOrder Date: 10/31/16Order Info: 0184-1 - CBCDOrder Info: [id number] - SEDOrder Date: 10/31/16Order Info: 3040-3 - LIPASEW [facility] [address] [place], [address] SED RATE 12 mm/h (Normal) Range: 0-30 :33 Lipase (88171) Comments: Order Date: 10/31/16Order Info: 0786- 1 - CMPOrder Info: 1798-8 - AMYOrder Info: 3040-3 - LIPASEOrder Date: 10/31/16Order Info: 3040-3 - LIPASEComments: all [facility] Gmiyxflnuo70 [address] [place] [place], [address] LIPASE 216 U/L (Normal) Range: 73-393 :33 Amylase (66395) Comments: Order Date: 10/31/16Order Info: 0786- 1 - CMPOrder Info: 1798-8 - AMYOrder Info: 3040-3 - LIPASEOrder Date: 10/31/16Order Info: 3040-3 - LIPASEComments: all [facility] [address] [place], [address] QUENTIN 56 U/L (Normal) Range: 25-115 :45 Urinalysis, Office (46455) UA - LEUKOCYTE ESTERASE Negative (Normal) UA - NITRITE Negative (Normal) URINE UROBILINGN NOREEN TIMED Normal mg/dL (Normal) UA - PROTEIN Negative mg/dL (Normal) UA - PH 6 (Abnormal) UA - BLOOD Non Hemolyzed Trace (Normal) UA - SPECIFIC GRAVITY 1.015 (Normal) UA - KETONES Negative mg/dL (Normal) UA - BILIRUBIN Negative (Normal) UA - GLUCOSE Negative (Normal) 91-Ggf-476552:00 Pathology Report Comments: PERFORMED BY: AptelaCYT [facility] Marston Cyto Dwdju44065 [facility] [id number] Information: [id number] See MATER Comments: Material submitted: .SHAVE BIOPSY [...] ARE 4 PIECES TOTAL./CORCOR/CORPathologist provided ICD-10:L82.1, B07.8CPT .066583 4-Ceb-918292:50 Basic Metabolic Profile (BMP) Comments: DR TUCKER IS ORDERING THE BMPOrder Date: 06/28/16OV Order #: [id number] Clinic Hillcrest Hospital [address] [place], [address] GAP 9 (Normal) Range: 5-15 CO2 28.0 [...] 7-18 GLU 89 mg/dL (Normal) Range: 70-110 5-Ttj-759799:50 Lipid Profile Comments: DR TUCKER IS ORDERING THE BMPOrder Date: 06/28/16OV Order #: [id number] Valley Community Hospital [address]rounr[address] [place], [place], [address] VLDL 14 mg/dL (Normal) Range: 5-40 LDL [...] 200-240 mg/dL Borderline >240 mg/dL High Risk 9-Cqn-276533:50 Liver Profile Comments: DR TUCKER IS ORDERING THE BMPOrder Date: 06/28/16OV Order #: [id number] Valley Community Hospital [address]jdfsn[address] [place] [place], [address] D BILI 0.11 mg/dL (Normal) Range: 0.00-0.30 T BILI 0.50 mg/dL (Normal) Range: 0.20-1.00 ALT 30 U/L (Normal) Range: 12-78 ALK P 70 U/L (Normal) Range: 50-136 AST 27 U/L (Normal) Range: 15-37 GLOB 3.8 g/dL (Abnormal) Range: 2.3-3.5 ALB 3.8 g/dL (Normal) Range: 3.4-5.0 T PROT 7.6 g/dL (Normal) Range: 6.4-8.2 3-Afp-913347:50 T4 Total, Thyroxin Comments: DR TUCKER IS ORDERING THE BMPOrder Date: 06/28/16 Order #: [id number] Valley Community Hospital [address]bv[address] [place], [place], [address] T4 THYROXIN 12.8 ug/dL (Normal) Range: 4.8-13.9 3-Zch-409963:50 Thyroid Stim Hormone (TSH) Comments: DR TUCKER IS ORDERING THE BMPOrder Date: 06/28/16 Order #: [id number] Valley Community Hospital [address] [place], [place], [address] TSH 2.26 {uIU/mL} (Normal) Range: 0.358-3.74 59-Ulv-622963:26 URINE DAR CULTURE-IDENTIFICATN Comments: PATIENT NOT FASTINGPERFORMED BY: [facility] Yjwjzy6736 [facility] [id number] Information: SRC:ANDREW ([id number]) Result 1 ECV (Abnormal) Comments: Escherichia coli, [...] report Culture,Comprehensi (Abnormal) ve :38 Urinalysis, Office (52971) UA - LEUKOCYTE ESTERASE Negative (Normal) UA - NITRITE Negative (Normal) URINE UROBILINGN NOREEN TIMED Normal mg/dL (Normal) UA - PROTEIN Negative mg/dL (Normal) UA - PH 5 (Abnormal) UA - BLOOD Hemolyzed Trace (Normal) UA - SPECIFIC GRAVITY 1.010 (Normal) UA - KETONES Negative mg/dL (Normal) UA - BILIRUBIN Negative (Normal) UA - GLUCOSE Negative (Normal) 97-Apl-126267:02 Comprehensive Metabolic Profil Comments: CMP IS [facility] [address]xtphras[address] [place], [place], [address] GAP 8 (Normal) Range: 5-15 CO2 27.0 [...] 7-18 GLU 85 mg/dL (Normal) Range: 70-110 55-Ugw-595279:02 T4 Total, Thyroxin Comments: CMP IS FOR [facility]. [facility]NEYC[facility] [address]qragxp[address] [place], [place], [address] T4 THYROXIN 13.1 ug/dL (Normal) Range: 4.8-13.9 [id number]:02 Thyroid Stim Hormone (TSH) Comments: [facility] [address] [place], [address] TSH 1.34 {uIU/mL} (Normal) Range: 0.358-3.74 :25 COLON BIOPSY (CHOOSE See Note (Normal) Comments: [facility] [id number] [place], [id number] SITE) Comments: Patient: IRIS ARRIAGA : 1940 (76/F) Acct Num: [id number] Phys: Clifford Gifford Unit Num: [id number] Loc: EN Specimen: [id number] Received: 01/30/1650 Spec Type: COLON BX TISSUES TISSUES: GROSS DESCRIPTION Received is one container labeled with the patient name and designated mid ascending polyp. The specimen consists of two irregular fragments of light tansoft tissue that in aggregate measure 0.3 x 0.2 x 0.1 cm. The specimen is totally submitted in one cassette. / SJ:juan j 01/30/16 TC:5 CPT:75811 HEADER OPERATION: Colonoscopy PRE-OP DI AGNOSIS: Screening TISSUE SUBMITTED: Mid ascending polyp MICROSCOPIC DESCRIPTION Slides are reviewed. MICROSCOPIC DIAGNOSIS Mid ascending colon polyp, biopsy: Fragments of tubular adenoma. AM:juan j 01/31/16 Signed [facility] 01/31/16 <signature on file> [id number] Basic Metabolic Profile (BMP) Comments: ORDERED BMPDR.REINA ORDERED TSH T4 LIPID [facility] [address] [place], [id number] GAP 6 (Normal) Range: 5-15 CO2 27.0 [...] 7-18 GLU 78 mg/dL (Normal) Range: 70-110 89-Klk-875239:12 Lipid Profile Comments: ORDERED [facility].LAURENCEW ORDERED TSH T4 LIPID [facility] Pkvpdshilw0320 [place], [place], [id number] VLDL 15 mg/dL (Normal) Range: 5-40 LDL [...] 200-240 mg/dL Borderline >240 mg/dL High Risk 01-Dgf-296750:12 Liver Profile Comments: [facility] TSH T4 LIPID [facility] Mrwwuzjrwb8538 [place], [place], [address] D BILI 0.17 mg/dL (Normal) Range: 0.00-0.30 T BILI 0.50 mg/dL (Normal) Range: 0.20-1.00 ALT 37 U/L (Normal) Range: 12-78 ALK P 68 U/L (Normal) Range: 50-136 AST 26 U/L (Normal) Range: 15-37 GLOB 3.8 g/dL (Abnormal) Range: 2.3-3.5 ALB 3.5 g/dL (Normal) Range: 3.4-5.0 T PROT 7.3 g/dL (Normal) Range: 6.4-8.2 81-Wdc-330785:12 T4 Total, Thyroxin Comments: ORDERED BMPDR.REINA ORDERED TSH T4 [facility] Eb[address]vnjy[address] [place], [place], [address] T4 THYROXIN 14.3 ug/dL (Abnormal) Range: 4.8-13.9 50-Yqq-762317:12 Thyroid Stim Hormone (TSH) Comments: ORDERED BMPDR.REINA ORDERED TSH T4 [facility] Srthbktckd3[address] [place], [place], [address] TSH 2.32 {uIU/mL} (Normal) Range: 0.358-3.74 56-Nbd-71446:37 Rapid Flu (42492 x 2) Influenza A Ag neg (Normal) 50-Orb-790222:28 Metabolic Panel, Basic Comments: PATIENT NOT FASTINGPERFORMED BY: [place] [facility] Ptttfw8503 [facility] [id number] (60116) Calcium, Serum 8.7 mg/dL (Normal) Range: 8.7-10.3 [...] Glucose, Serum 70 mg/dL (Normal) Range: 65-99 32-Rrs-768407:28 CBC (Auto) (75579) Comments: PATIENT NOT FASTINGPERFORMED BY: [facility]6370 [facility] [id number] Information: [id number] Platelets 224 {x10E3/uL} (Normal) Range: 150-379 RDW 14.8 % (Normal) Range: 12.3-15.4 MCHC 33.0 g/dL (Normal) Range: 31.5-35.7 MCH 31.9 pg (Normal) Range: 26.6-33.0 MCV 97 fL (Normal) Range: 79-97 Hematocrit 39.4 % (Normal) Range: 34.0-46.6 Hemoglobin 13.0 g/dL (Normal) Range: 11.1-15.9 RBC 4.08 {x10E6/uL} (Normal) Range: 3.77-5.28 WBC 8.1 {x10E3/uL} (Normal) Range: 3.4-10.8 87-Ugy-532904:51 URINE DAR CULTURE-IDENTIFICATN Comments: PATIENT NOT FASTINGPERFORMED BY: [address] [id number] Information: [id number] ([id number]) Result 1 MUG (Normal) Comments: Mixed urogenital flora2,000 Colonies/mL Urine Culture,Comprehensive Final report (Normal) 71-Ove-08341:28 Magnesium Comments: [facility] [address] [place], [address] MG 2.1 mg/dL (Normal) Range: 1.8-2.4 29-Sfo-14366:28 Potassium Comments: [facility] [address] [place], [address] K 5.0 mmol/L (Normal) Range: 3.5-5.1 88-Ttm-951709:12 LIPASE (21103) Comments: Test(s) Potassium, Serum called to Gina Vergara on 11/21/2015 at 03:54 ESTPATIENT NOT FASTINGPERFORMED BY: [facility]6370 [facility] [id number] Lipase, Serum 61 U/L (Abnormal) Range: 0-59 79-Ula-731213:12 AMYLASE (30513) Comments: Test(s) Potassium, Serum called to [employer] on 11/21/2015 at 03:54 ESTPATIENT NOT FASTINGPERFORMED BY: Errund Xegbwu1542 [facility] [id number] Amylase, Serum 84 U/L (Normal) Range: 31-124 87-Kga-259227:20 Urinalysis, Office (73607) UA - LEUKOCYTE ESTERASE Trace (Normal) UA - NITRITE Negative (Normal) URINE UROBILINGN NOREEN TIMED Normal mg/dL (Normal) UA - PROTEIN 100 mg/dL (Normal) UA - PH 6.0 (Normal) Comments: 5.5 UA - BLOOD Negative (Normal) UA - SPECIFIC GRAVITY 1.030 (Abnormal) UA - KETONES 15 mg/dL (Abnormal) UA - BILIRUBIN Moderate (Normal) UA - GLUCOSE Negative (Normal) 36-Sko-868014:12 Metabolic Panel, Basic Comments: Test(s) Potassium, Serum called to [employer] on 11/21/2015 at 03:54 ESTPATIENT NOT FASTINGPERFORMED BY: [employer]6370 [facility] [id number] ([id number]) Calcium, Serum 8.9 mg/dL (Normal) Range: 8.7-10.3 [...] Comments: Specimen received hemolyzed. Clinical correlation indicated. 13-Tmq-765716:12 CBC WITH MANUAL DIFF Comments: Test(s) Potassium, Serum called to [employer] on 11/21/2015 at 03:54 ESTPATIENT NOT FASTINGPERFORMED BY: MISHA [facility] Rkqvtw0552 Hermelinda [facility] [id number] Information: [id number] (20009) Immature Grans (Abs) 0.0 {x10E3/uL} (Normal) Range: [...] 3.77-5.28 WBC 16.1 {x10E3/uL} (Abnormal) Range: 3.4-10.8 4-Krs-694114:50 Urinalysis, Complete Comments: Order Date: 11/15/15How was Urine Obtained? 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 [place], [place], [address] HYALINE CAST 5-10 SEEN {/lpf} (Normal) Range: [...] (Normal) CLARITY Clear (Normal) COLOR Yellow (Normal) 7-Vhl-182054:00 Basic Metabolic Profile (BMP) Comments: [facility] [address] [place], [place], [address] GAP 6 (Normal) Range: 5-15 CO2 24.0 [...] 7-18 GLU 88 mg/dL (Normal) Range: 70-110 7-Ekp-397221:00 CBC W/Diff, Automated Comments: [facility] Q[address]wkav[address] [place], [address] SMEAR COMMENT SCANNED (Normal) Absolute [...] 4.2-5.4 WBC 16.9 K/mm3 (Abnormal) Range: 4.4-11.0 5-Fps-617743:00 Lipase Comments: [facility] [address] [place], [address] LIPASE 446 U/L (Abnormal) Range: 73-393 1-Ncl-693070:00 Liver Profile Comments: [facility] [address]qj[address] [place], [address] D BILI 0.06 mg/dL (Normal) Range: 0.00-0.30 T BILI 0.40 mg/dL (Normal) Range: 0.20-1.00 ALT 94 U/L (Abnormal) Range: 12-78 ALK P 66 U/L (Normal) Range: 50-136 AST 76 U/L (Abnormal) Range: 15-37 Comments: Moderate Hemolysis, Result may be falsely increased. GLOB 4.0 g/dL (Abnormal) Range: 2.3-3.5 ALB 3.3 g/dL (Abnormal) Range: 3.4-5.0 T PROT 7.3 g/dL (Normal) Range: 6.4-8.2 7-Nor-856411:00 Thyroid Stim Hormone (TSH) Comments: [facility] [address] [place], [address] TSH 1.12 {uIU/mL} (Normal) Range: 0.358-3.74 6-Ptn-257843:18 Thyroid Stim Hormone (TSH) Comments: [facility] [address] [place], [address] TSH 0.59 {uIU/mL} (Normal) Range: 0.358-3.74 72-Dya-164953:18 Pathology Report Comments: PERFORMED BY: KWCYT [facility] Marston Cyto Hfsjk20437 [facility] [id number] BY: INDYL [facility] Cyxhmnyfazmw[address] [place] [address] [address] [id number] BY: LX [facility] Sopiyzt82584 [facility] [id number] Information: [id number] See MATER Comments: Material submitted: .SHAVE CHESTClinician [...] BISECTED AND SUBMITTED IN TOTO.XJW/TMZPathologist provided ICD-10:L57.0CPT .687017 29-Sxt-160561:40 Basic Metabolic Profile (BMP) Comments: 'TROP' Serial specimen #1, #2, #3, or #4: 1[facility] [address]wd[address] [place], [place], [address] GAP 7 (Normal) Range: 5-15 CO2 27.0 [...] 7-18 GLU 76 mg/dL (Normal) Range: 70-110 00-Vgc-725478:40 BNP,B-Type NATRIURETIC PEPTIDE Comments: [facility] [address] [place], [place], [address] B-TYPE HUMBLE PEP 406.4 pg/mL (Abnormal) Range: 0-100 03-Gfh-325731:40 CBC W/Diff, Automated Comments: [facility] [address] [place], [place], [address] Absolute Lymph 1.25 {X10_3/ul} (Normal) Range: 0.83-4.51 [...] 4.2-5.4 WBC 9.2 K/mm3 (Normal) Range: 4.4-11.0 67-Oaz-930754:40 Troponin-I Comments: 'TROP' Serial specimen #1, #2, #3, or #4: [facility] [address]yslgudlfp8[address] [place], [address] TROPONIN-I 0.03 ng/mL (Normal) Comments: TROPONIN-I EXPECTED VALUES <0.05 NEGATIVE 0.06 - 0.59 AT RISK OF NV > OR = 0.60 SUGGEST NV 48-Ekk-398918:25 Urinalysis, Complete Comments: Order Date: 08/09/15How was Urine Obtained? [facility] [address]kxhm[address] [place], [address] MUCUS, URINE 0 SEEN {/hpf} (Normal) [...] (Normal) CLARITY Clear (Normal) COLOR Straw (Normal) 51-Vhy-313390:26 Basic Metabolic Profile (BMP) Comments: 'TROP' Serial specimen #1, #2, #3, or #4: [address] [place] [address] Ruv[address]trxugs[address] [place], [address] GAP 4 (Abnormal) Range: 5-15 CO2 [...] 7-18 GLU 66 mg/dL (Abnormal) Range: 70-110 99-Bng-975593:26 CBC W/Diff, Automated Comments: [facility] [address]ff[address] [place], [address] SMEAR COMMENT SCANNED (Normal) Absolute Lymph 2.04 [...] 4.2-5.4 WBC 18.6 K/mm3 (Abnormal) Range: 4.4-11.0 81-Dgx-904509:26 Prothrombin Time w/INR Comments: [facility] [address]rj[address] [place], [place], [address] INR 1.1 (Normal) PROTIME 14.0 s (Normal) Range: 11.7-14.9 91-Ubd-371117:26 Troponin-I Comments: 'TROP' Serial specimen #1, #2, #3, or #4: 1[facility] [address]ngpp74[address] [place], [place], [address] TROPONIN-I < 0.02 ng/mL (Normal) Comments: TROPONIN-I EXPECTED VALUES <0.05 NEGATIVE 0.06 - 0.59 AT RISK OF NV > OR = 0.60 SUGGEST NV 39-Lzx-930539:02 Bilirubin, Direct Comments: ORDERED LIPID,LIVERDR.CLARY ORDERED CBCD,TSH,LIPID,CMP,[facility] [address]ktlxz[address] [place], [place], [address] D BILI 0.15 mg/dL (Normal) Range: 0.00-0.30 80-Ojj-208067:02 CBC W/Diff, Automated Comments: [facility] [address] [place], [place], [address] Absolute Lymph 0.99 {X10_3/ul} (Normal) Range: 0.83-4.51 [...] 4.2-5.4 WBC 7.5 K/mm3 (Normal) Range: 4.4-11.0 76-Fbb-648399:02 Comprehensive Metabolic Comments: ORDERED LIPID,LIVERDRCLOVER ORDERED CBCD,TSH,LIPID,CMP,[facility] Exagugpqli3747 [place], [address] Profil GAP 8 (Normal) Range: 5-15 CO2 [...] 7-18 GLU 80 mg/dL (Normal) Range: 70-110 27-Bdy-702390:02 Lipid Profile Comments: ORDERED LIPID,LIVERDRCLOVER ORDERED CBCD,TSH,LIPID,CMP,[facility] Ueokqnmvkz74[address] [place], [address] VLDL 18 mg/dL (Normal) Range: [...] 200-240 mg/dL Borderline >240 mg/dL High Risk 26-Fzy-344990:02 Thyroid Stim Hormone Comments: ORDERED LIPID,LIVERDRCLOVER ORDERED CBCD,TSH,LIPID,CMP,[facility] Ddnyjojmih06[address] [place], [address] (TSH) TSH 1.37 {uIU/mL} (Normal) Range: 0.358-3.74 27-Ikf-738096:02 Urinalysis, Complete Comments: How was Urine Obtained? [facility] Gzgqyglvoe99[address] [place], [address] MUCUS, URINE 0 SEEN {/hpf} [...] (Normal) CLARITY Clear (Normal) COLOR Straw (Normal) 13-Ryh-381061:40 Basic Metabolic Profile (BMP) Comments: REDRAW. PREVIOUS SPECIMEN REJECTED DUE TOHEMOLYSIS. 06/06/15 1526 Blanca De La Cruz.[facility] [address]bv[address] [place], [place], [address] GAP 6 (Normal) Range: 5-15 CO2 28.0 [...] <126 mg/dLsuggests IMPAIRED HOMEOSTASIS per A.D.A. criteria. 11-Ojm-997543:10 CBC W/Diff, Automated Comments: [facility] [address]ym[address] [place], [place], [address] Absolute Lymph 1.33 {X10_3/ul} (Normal) Range: 0.83-4.51 [...] 4.2-5.4 WBC 9.3 K/mm3 (Normal) Range: 4.4-11.0 02-Ylr-193593:16 Renal function Panel Comments: PATIENT NOT FASTINGPERFORMED BY: [facility]CoKessler Institute for RehabilitationRsgmmx1798 [facility] [id number] Information: [id number] (95884) Albumin, Serum 3.6 g/dL (Normal) Range: 3.5-4.8 [...] (Abnormal) Range: 65-99 Comments: Client Requested Flag 34-Keq-245744:57 CK-MB Quantitative and Index Comments: Serial Specimen #1, #2 or #3? 2Comments: Should be drawn 2H after initial Troponin obtained'TROP' Serial specimen #1, #2, #3, or #4: 2Test performed at:[facility] Pkkbqkfepw8145 [facility] [place] [address] CPKMB 1.1 ng/mL (Normal) Range: 0.0-5.0 Comments: CK-MB and RI Interpretation MB Relative Index Non-AMI <or= 5 NA Indeterminate > 5 <or= 4 AMI > 5 > 4 CPK TOTAL 48 U/L (Normal) Range: 26-192 39-Uch-586237:57 Troponin-I Comments: Serial Specimen #1, #2 or #3? 2Comments: Should be drawn 2H after initial Troponin obtained'TROP' Serial specimen #1, #2, #3, or #4: 2Test performed at:[facility] [address] [place] [address] TROPONIN-I < 0.02 ng/mL (Normal) Comments: TROPONIN-I EXPECTED VALUES <0.05 NEGATIVE 0.06 - 0.59 AT RISK OF NV > OR = 0.60 SUGGEST NV 02-Yqh-626268:33 Comprehensive Metabolic Profil Comments: Test performed at:[facility] [address]wohtjsr[address] [facility] [place] [address] GAP 6 (Normal) Range: 5-15 [...] Comments: Please note revised CREATININE reference range jixlqgcmx18/22/2015. BUN 35 mg/dL (Abnormal) Range: 7-18 GLU 53 mg/dL (Abnormal) Range: 70-110 42-Gsi-501884:33 CRP Comments: Test performed at:[facility] [address]pq[address] [place] [address] C-REACTIVE PROT < 2.90 mg/L (Normal) Range: 0.0-3.0 Comments: C-Reactive Protein (CRP) provides useful information for thediagnosis, therapy and monitoring of inflammatory processesand associated diseases. For the evaluation of Relative Riskfor Cardiovascular Dise ase, a High Sensitivity CRP (HSCRP)should be ordered. :33 Erythrocyte Sed Rate Comments: Test performed at:[facility] [address]xcixn39[address] [place] [address] SED RATE 7 mm/h (Normal) Range: 0-30 54-Evi-072335:38 URINE DAR CULTURE-NOREEN COL Comments: PATIENT NOT FASTINGPERFORMED BY: MISHA [facility] Rniehv0983 [address] [place] [id number] Information: SRC:URC [id number] COUNT ([id number]) Result 1 NG36 (Normal) Comments: No growth in 36 - 48 hours. Urine Culture,Comprehensive Final report (Normal) 02-Fvu-508344:07 Urinalysis, Office (52262) UA - LEUKOCYTE ESTERASE Trace (Normal) UA - NITRITE Negative (Normal) URINE UROBILINGN NOREEN TIMED 2 mg/dL (Normal) UA - PROTEIN Negative mg/dL (Normal) UA - PH 5.0 (Normal) UA - BLOOD Negative (Normal) UA - SPECIFIC GRAVITY 1.015 (Normal) UA - KETONES Small mg/dL (Normal) UA - BILIRUBIN Negative (Normal) UA - GLUCOSE Negative (Normal) 08-Feb-20159:39 Pathology Report Comments: PERFORMED BY: [employer] [facility] Marston Cyto Xythi43272 [facility] [id number] BY: [facility] Cufylxb[address] [id number] Information: [id number] See MATER Comments: Material submitted: .SHAVE BIOPSY [...] HOLOGIC CORRELATIONIS RECOMMENDED.02/13/2015Electronically signed: .Gege Reece MD, Whitney topathologistGross description: .RECEIVED IS A CONTAINER LABELED IRIS ARRIAGA AND DESIGNATEDUPPER LESION ON CHEEK. IN FORMALIN IS A FERGUSON TISSUE MEASURING 4 X4 X 1 MM. IT IS INKED PURPLE, BISECTED, AND BOTH HALVES ARESUBMITTED IN A SINGLE CASSETTE.COR/BXSPathologist provided ICD-9:686.9, 682.0CPT .272669, 814935, 003204 28-Vzj-439239:29 T4 Total, Thyroxin Comments: PER PT ONLY TSH AND T4 TODAYTest performed at:[facility] [address] [place] [address] T4 THYROXIN 13.2 ug/dL (Normal) Range: 4.8-13.9 75-Lhw-883813:29 Thyroid Stim Hormone (TSH) Comments: PER PT ONLY TSH AND T4 TODAYTest performed at:[facility] Ibfr[address]wml[address] [place] [address] TSH 3.74 {uIU/mL} (Normal) Range: 0.358-3.74 74-Dlh-072828:17 URINE DAR CULTURE-NOREEN COL Comments: PATIENT NOT FASTINGPERFORMED BY: [facility] Gwwbeo3325 [facility] [id number] Information: SRC: URINE COUNT ([id number]) Result 1 NG36 (Normal) Comments: No growth in 36 - 48 hours. Urine Culture,Comprehensive Final report (Normal) 01-Xek-224974:48 Urinalysis, Office (32208) UA - LEUKOCYTE ESTERASE Negative (Normal) UA - NITRITE Negative (Normal) URINE UROBILINGN NOREEN TIMED Normal mg/dL (Normal) UA - PROTEIN Negative mg/dL (Normal) UA - PH 6.0 (Normal) Comments: 5.5 UA - BLOOD Negative (Normal) UA - SPECIFIC GRAVITY 1.010 (Normal) UA - KETONES Negative mg/dL (Normal) UA - BILIRUBIN Negative (Normal) UA - GLUCOSE Negative (Normal) 20-Vke-926723:31 Basic Metabolic Profile (BMP) Comments: Test performed at:[facility] [address]aezd[address] [place], [place] [address] GAP 5 (Normal) Range: 5-15 CO2 27.0 mmol/L (Normal) Range: 21.0-32.0 CL 103 mmol/L (Normal) Range: 98-107 K 4.8 mmol/L (Normal) Range: 3.5-5.1 NA 135 mmol/L (Abnormal) Range: 136-145 CA 8.7 mg/dL (Normal) Range: 8.5-10.1 BUN/CRE 16.4 {RATIO} (Normal) Range: 10-20 CREAT,SERUM 1.1 mg/dL (Abnormal) Range: 0.6-1.0 BUN 18 mg/dL (Normal) Range: 7-18 GLU 89 mg/dL (Normal) Range: 70-110 43-Stw-048938:31 Lipid Profile Comments: Test performed at:[facility] Mtntyqvuja0033 [facility] [address] VLDL 22 mg/dL (Normal) Range: [...] 200-240 mg/dL Borderline >240 mg/dL High Risk 36-Prd-839402:31 Liver Profile Comments: Test performed at:[facility] Kofgafuoho6304 [facility] [place] [address] D BILI 0.10 mg/dL (Normal) Range: 0.00-0.30 T BILI 0.30 mg/dL (Normal) Range: 0.00-4.00 ALT 35 U/L (Normal) Range: 12-78 ALK P 85 U/L (Normal) Range: 50-136 AST 38 U/L (Abnormal) Range: 15-37 GLOB 3.6 g/dL (Normal) Range: 2.7-4.2 ALB 3.7 g/dL (Normal) Range: 3.4-5.0 T PROT 7.3 g/dL (Normal) Range: 6.4-8.2 :31 T4 Total, Thyroxin Comments: Test performed at:[facility] [address] [place] [address] T4 THYROXIN 14.9 ug/dL (Abnormal) Range: 4.8-13.9 :31 Thyroid Stim Hormone (TSH) Comments: Test performed at:[facility] [address] [place] [address] TSH 2.32 {uIU/mL} (Normal) Range: 0.358-3.74 :30 CBC W/Diff, Automated Comments: Test performed at:[facility] [address] [place] [address] Absolute Lymph 1.12 {X10_3/ul} (Normal) [...] 4.2-5.4 WBC 8.8 K/mm3 (Normal) Range: 4.4-11.0 23-Xak-413606:30 Urinalysis, Complete Comments: DR HUANG LIVER LIPID TSH T4 ONLYHow was Urine Obtained? CLEAN CATCHTest performed at:[facility] Clfqhtygbo1060 [facility] [place] [address] HYALINE CAST 0-5 SEEN {/lpf} [...] CLARITY Sl. Cloudy (Normal) COLOR Yellow (Normal) 90-Tul-442936:09 CBC W/Diff, Automated Comments: Test performed at:[facility] Afzsiapxnt3445 [facility] [address] Absolute Lymph 0.85 {X10_3/ul} (Normal) [...] 4.2-5.4 WBC 8.7 K/mm3 (Normal) Range: 4.4-11.0 38-Rbj-244322:09 Comprehensive Metabolic Profil Comments: 'TROP' Serial specimen #1, #2, #3, or #4: 1Test performed at:[facility] [address]ct[address] [place], [place] [address] GAP 5 (Normal) Range: 5-15 CO2 27.0 [...] <126 mg/dLsuggests IMPAIRED HOMEOSTASIS per A.D.A. criteria. 03-Dll-451590:09 Troponin-I Comments: 'TROP' Serial specimen #1, #2, #3, or #4: 1Test performed at:[facility] Ykgymbnghb[address] [place], [place] [address] TROPONIN-I < 0.02 ng/mL (Normal) Comments: TROPONIN-I EXPECTED VALUES <0.05 NEGATIVE 0.06 - 0.59 AT RISK OF NV > OR = 0.60 SUGGEST NV 18-Jvr-078010:21 Rapid Flu (79211 x 2) Influenza A Ag neg (Normal) 2-Obg-584014:05 TSH 6.19 {uIU/mL} (Abnormal) Range: 0.358-3.74 92-Bao-93280:54 CBCMD ANC 10.3 3/uL (Abnormal) Range: 2.0-7.7 [...] CHOL 151 mg/dL (Normal) Comments: <200 mg/dL Ouffwaugh787-934 mg/dL Borderline>240 mg/dL High Risk :54 TSH 0.72 {uIU/mL} (Normal) Range: 0.358-3.74 91-Hge-181659:37 Rapid Strep Test, Office (50679) Comments: neg Rapid Strep Test, Office Negative (Normal) 72-Xif-663878:03 DAR CULTURE-OTHER (64889) Comments: PATIENT NOT FASTINGPERFORMED BY: LabCoKessler Institute for RehabilitationPbyecm0394 [facility] [id number] Information: SRC:THRT [id number] Result 1 RRF (Normal) Comments: Routine respiratory julia Upper Respiratory Culture Final report (Normal) 51-Alf-965562:12 Urinalysis, Office (93457) UA - BILIRUBIN Negative (Normal) UA - BLOOD Hemolyzed Trace (Normal) UA - GLUCOSE Negative (Normal) UA - KETONES Negative mg/dL (Normal) UA - LEUKOCYTE ESTERASE Trace (Normal) UA - NITRITE Negative (Normal) UA - PH 6.0 (Normal) UA - PROTEIN Negative mg/dL (Normal) UA - SPECIFIC GRAVITY 1.010 (Normal) URINE UROBILINGN NOREEN TIMED 2 mg/dL (Normal) 31-Wnj-542274:53 DEXA BONE DENSITY STUDY (HP) Radiology Report [...] Fink M.D.July 29, 2012 at 2:05:06 PM [id number] Signed GP/GP If you are the referring physician and would like to consult with theradiologist who provided this interpretation, please contact Aleida Osei at [phone]. If this radiologist is unavailable, youwil l be directed to another radiologist to assist. If you are a patient with a question regarding this report, pleasecontactyour referring physician directly. Professional Interpretation Provided By: [employer], Phone , These documents contain legally protected [...] Ed Covarrubias on 07/29/12 1410 Sign by: Aleks TIRADO,Ed 88-Nqj-387955:37 BILAT SCRN DIGITAL & CAD Radiology Report [...] Fink M.D.July 14, 2012 at 1:35:04 PM [phone] Signed GP/GP If you are the referring physician and would like to consult with theradiologist who provided this interpretation, please contact Aleida Osei at [phone]. If this radiologist is unavailable, youwill be directed to another radiologist to assist. If you are a patient with a questi on regarding this report, pleasecontactyour referring physician directly. Professional Interpretation Provided By: [employer], Phone , These documents contain legally prot [...] on 07/14/12 1342 by ITS IMPORTSign by Aleks TIRADO,Ed on 07/14/12 1343 Sign by: Ed Fink MD 22-Apr-2012 BID 0.10 mg/dL Comments: Order Date: 02/06/12OV Order #: [id number] ID: [id number] Comments: DX = 272.4 JLS [...] 12 hours, may have water.OV Order #: [id number] Order #: [id number] Comments: Reason:Interface Comments: DX = 427.31 [facility] 02/07/12OV Order #: [id number] Comments: DX = 428.0 [facility] 02/07/12 Range: 0.00-0.30 45-Nan-537222:57 CMP Comments: Order Date: 02/06/12OV Order #: [id number] ID: [id number] Comments: DX = 272.4 [facility] 02/07/12Diagnosis: V58.69 - LONG-TERM USE [...] 12 hours, may have water.OV Order #: [id number] Order #: [id number] Comments: Reason:Interface Comments: DX = 427.31 [facility] 02/07/12OV Order #: [id number] Comments: DX = 428.0 [facility] 02/07/12 GAP 6 (Normal) Range: [...] 7-18 GLU 92 mg/dL (Normal) Range: 70-110 96-Fsr-865875:57 LIPID Comments: Order Date: 02/06/12OV Order #: [id number] ID: [id number] Comments: DX = 272.4 [facility] 02/07/12Diagnosis: V58.69 - LONG-TERM USE [...] 12 hours, may have water.OV Order #: [id number] Order #: [id number] Comments: Reason:Interface Comments: DX = 427.31 [facility] 02/07/12OV Order #: [id number] Comments: DX = 428.0 [facility] 02/07/12 VLDL 13 mg/dL (Normal) [...] (Normal) Comments: Order Date: 02/06/12OV Order #: [id number] ID: [id number] Comments: DX = 272.4 JLS [...] 12 hours, may have water.OV Order #: [id number] Order #: [id number] Comments: Reason:Interface Comments: DX = 427.31 J[facility] 02/07/12OV Order #: [id number] Comments: DX = 428.0 JLS 02/07/12 Range: 2.5-4.9 :57 T4 12.6 ug/dL (Normal) Comments: Order Date: 02/06/12OV Order #: [id number] ID: [id number] Comments: DX = 272.4 JLS [...] 12 hours, may have water.OV Order #: [id number] Order #: [id number] Comments: Reason:Interface Comments: DX = 427.31 S 02/07/12OV Order #: [id number] Comments: DX = 428.0 [facility] 02/07/12 Range: 4.8-13.9 88-Oso-288132:57 T4F 1.76 ng/dL (Abnormal) Comments: Order Date: 02/06/12OV Order #: [id number] ID: [id number] Comments: DX = 272.4 S [...] 12 hours, may have water.OV Order #: [id number] Order #: [id number] Comments: Reason:Interface Comments: DX = 427.31 [facility] [facility] Order #: [id number] Comments: DX = 428.0 [facility] 02/07/12 Range: 0.76-1.46 57-Cmf-001378:57 TSH 2.47 {uIU/mL} (Normal) Comments: Order Date: 02/06/12OV Order #: [id number] ID: [id number] Comments: DX = 272.4 [facility] 02/07/12Diagnosis: V58.69 - LONG-TERM USE [...] 12 hours, may have water.OV Order #: [id number] Order #: [id number] Comments: Reason:Interface Comments: DX = 427.31 [facility] 02/07/12OV Order #: [id number] Comments: DX = 428.0 [facility] 02/07/12 Range: 0.358-3.74 28-Sif-761219:47 CBCD Comments: DR. VERGARA ORDERED CMP, RENAL, [...] 4.2-5.4 WBC 6.7 K/mm3 (Normal) Range: 4.4-11.0 7-Mvs-937657:21 CBCD ANC 5.1 3/uL (Normal) Range: 2.0-7.7 [...] 4.2-5.4 WBC 7.8 K/mm3 (Normal) Range: 4.4-11.0 1-Rmx-502528:21 LIPID Comments: ORDERED TSH LIPID T4DR.CLARY ORDERED [...] VALVE PROLAPSEDiagnosis: 272.4 - HYPERLIPIDEMIAOV Order #: [id number] ID: [id number] Order #: [id number] Comments: Reason:OV Order #: [id number] VLDL 10 mg/dL (Normal) Range: 5-40 LDL [...] 200-240 mg/dL Borderline >240 mg/dL High Risk 3-Eyt-873549:21 RENAL Comments: ORDERED TSH LIPID T4DRCLOVER ORDERED [...] VALVE PROLAPSEDiagnosis: 272.4 - HYPERLIPIDEMIAOV Order #: [id number] ID: [id number] Order #: [id number] Comments: Reason:OV Order #: [id number] CO2 26.0 mmol/L (Normal) Range: 21.0-32.0 CL [...] 7-18 GLU 87 mg/dL (Normal) Range: 70-110 0-Eho-267246:21 T4 15.1 ug/dL (Abnormal) Comments: ORDERED TSH [...] VALVE PROLAPSEDiagnosis: 272.4 - HYPERLIPIDEMIAOV Order #: [id number] ID: [id number] Order #: [id number] Comments: Reason:OV Order #: [id number] Range: 4.8-13.9 7-Txa-023005:21 TSH 1.69 {uIU/mL} (Normal) Comments: ORDERED TSH [...] VALVE PROLAPSEDiagnosis: 272.4 - HYPERLIPIDEMIAOV Order #: [id number] ID: [id number] Order #: [id number] Comments: Reason:OV Order #: [id number] Range: 0.358-3.74 :57 BMP GAP 7 (Normal) Range: 5-15 CO2 [...] :57 TSH 2.61 {uIU/mL} (Normal) Range: 0.358-3.74 11-Raa-730789:38 URINE DAR CULTURE-NOREEN COL Comments: PATIENT NOT FASTINGPERFORMED BY: [id number] [id number] Information: SRC: URINE COUNT (49825) Result 1 NG36 (Normal) Comments: No growth in 36 - 48 hours. Urine Culture,Comprehensive Final report (Normal) :42 Urinalysis, Office (92540) UA - BILIRUBIN Negative (Normal) UA - BLOOD Non Hemolyzed Trace (Normal) UA - GLUCOSE Negative (Normal) UA - KETONES Negative mg/dL (Normal) UA - LEUKOCYTE ESTERASE Trace (Abnormal) UA - NITRITE Negative (Normal) UA - PH 5.0 (Normal) UA - PROTEIN Negative mg/dL (Normal) UA - SPECIFIC GRAVITY 1.005 (Normal) URINE UROBILINGN NOREEN TIMED Normal mg/dL (Normal) 16-Frw-173482:03 Urinalysis, Office (27737) UA - BILIRUBIN Negative (Normal) UA - BLOOD Hemolyzed Trace (Normal) UA - GLUCOSE Negative (Normal) UA - KETONES Negative mg/dL (Normal) UA - LEUKOCYTE ESTERASE Trace (Normal) UA - NITRITE Negative (Normal) UA - PH 5.0 (Normal) UA - PROTEIN Negative mg/dL (Normal) UA - SPECIFIC GRAVITY 1.010 (Normal) URINE UROBILINGN NOREEN TIMED Normal mg/dL (Normal) 1-Afs-394410:00 BMP Comments: GEMMA ORDERED BMP MG T4 [...] 7-18 GLU 88 mg/dL (Normal) Range: 70-110 1-Him-863278:00 LIPID Comments: GEMMA ORDERED BMP MG T4 [...] 200-240 mg/dL Borderline >240 mg/dL High Risk 7-Qkg-166347:00 LIVER Comments: GEMMA ORDERED BMP MG T4 [...] LIPIDBONEZZI ORDERED BMP TSH T4F Range: 1.5-2.2 4-Vbk-608640:00 T4 FREE DIRECT 1.69 ng/dL (Abnormal) Comments: GEMMA ORDERED BMP MG T4 TSH LIVER LIPIDBONEZZI ORDERED BMP TSH T4F Range: 0.76-1.46 8-Fxf-202730:00 T4 THYROXIN 14.3 ug/dL (Abnormal) Comments: GEMMA ORDERED BMP MG T4 TSH LIVER LIPIDBONEZZI ORDERED BMP TSH T4F Range: 4.8-13.9 0-Rka-504377:00 TSH 2.00 {uIU/mL} (Normal) Comments: GEMMA ORDERED BMP MG T4 TSH LIVER LIPIDBONEZZI ORDERED BMP TSH T4F Range: 0.358-3.74 2-Igm-186699:46 Anaerobic and Aerobic Comments: PERFORMED BY: [facility] [facility] [id number] Information: SRC:EB RIGHT ELBOW Culture Result 1 NG36 (Normal) Comments: No growth in 36 - 48 hours. Aerobic Culture Final report (Normal) Result 1 NAAG72 (Normal) Comments: No aerobic or anaerobic growth in 72 hours. Anaerobic Culture Final report (Normal) 6-Afs-078687:39 Urinalysis, Office (02217) UA - BILIRUBIN Negative (Normal) UA - BLOOD Negative (Normal) UA - GLUCOSE Negative (Normal) UA - KETONES Negative mg/dL (Normal) UA - LEUKOCYTE ESTERASE Negative (Normal) UA - NITRITE Negative (Normal) UA - PH 5.0 (Normal) UA - PROTEIN Negative mg/dL (Normal) UA - SPECIFIC GRAVITY 1.015 (Normal) URINE UROBILINGN NOREEN TIMED 2 mg/dL (Normal) 96-Zxp-14398:00 L/S SPINE,MIN 4 VIEWS Radiology Report See [...] 2:06 (Abnormal) Range: 0-34 Comments: Performed at: [facility] [id number] Director: Bella Taylor MD, Phone: [phone] T3 TOTAL 0.8 ng/mL (Normal) Comments: ORDERED [...] TPO T3F T4F 2:06 (Abnormal) Range: 0.358-3.74 84-Ohg-626862:13 BMP GAP 12 (Normal) Range: 5-15 CO2 [...] 7-18 GLU 95 mg/dL (Normal) Range: 70-110 06-Kud-101095:13 CBCD ABSOLUTE NEUT 5.1 3/uL (Normal) Range: [...] 4.2-5.4 WBC 7.1 K/mm3 (Normal) Range: 4.4-11.0 74-Lca-837863:34 Vaginitis/Vaginosis, DNA Probe Comments: PERFORMED BY: [facility] Viafxj[facility] [id number] Information: SRC:CE Gardnerella vaginalis Negative (Normal) Trichomonas [...] Visit for suture removal Concussion : Reviewed Small Boat Engineer Letter Indication: Concussion Fall, accidental : Reviewed Small Boat Engineer Letter Indication: Fall, accidental Fall, accidental [...] Cerumen impaction : Follow up in with [facility] for ear irrigation Indication: Cerumen impaction [...] tract infection, unspecified type Planned Observations TSH (59774)Indication: Memory impairment On: 98-Xut-935829:11 Request AMMONIA (34355)Indication: Memory impairment On: 03-Npc-898512:11 Request Methymalonic Acid, Serum (30450)Indication: Memory impairment On: 50-Cdx-557767:11 Request VITAMIN B-12 (CYANOCOBALAMIN) (68567)Indication: Memory impairment On: 87-Ijt-323884:11 Request FOLIC ACID SERUM (98813)Indication: Memory impairment On: 48-Sbh-617782:11 Request METABOLIC PANEL, COMPREHENSIVE (02636)Indication: Coronary artery disease On: 36-Vhc-938045:02 Request Comments: fax copy to [facility]N Bonilla, BY NMR (97822)Indication: Coronary artery disease On: 78-Gns-245472:02 Request CALCIFIDIOL (27144) VIT D 25Indication: Vitamin D deficiency On: 35-Omb-186942:02 Request Metabolic Panel, Comprehensive (17197)Indication: Hypokalemia On: 12-Nov-2017 Request Comments: fax a copy to Dr. Caitlin May [phone] Huang [phone] MAGNESIUM (90736)Indication: Hypokalemia On: 3-Hsd-645876:03 Request Metabolic Panel, Comprehensive (11657)Indication: Hypokalemia On: 6-Yms-817704:02 Request Comments: fax a copy to Dr. Caitlin Patterson-[address] Huang [phone] Metabolic Panel, Comprehensive (89391)Indication: Hypokalemia On: 05-Nov-2017 Request Comments: fax a copy to Dr. Caitlin May [phone] Huang [phone] Metabolic Panel, Comprehensive (57476)Indication: Hypokalemia On: 29-Oct-2017 Request Comments: fax a copy to Dr. Caitlin Kc and Dr. Huang [phone] Metabolic Panel, Comprehensive (88724)Indication: Hypokalemia On: 22-Oct-2017 Request Comments: fax a copy to Dr. Caitlin Patterson-[address] Huang [phone] Metabolic Panel, Comprehensive (93824)Indication: Hypokalemia On: 15-Oct-2017 Request Comments: fax a copy to Dr. Caitlin [phone] Huang [phone] Metabolic Panel, Comprehensive (11656)Indication: Hypokalemia On: 08-Oct-2017 Request Comments: fax a copy to Dr. Caitlin May [phone] Huang [phone] Metabolic Panel, Comprehensive (59803)Indication: Hypokalemia On: 01-Oct-2017 Request Comments: fax a copy to Dr. Caitlin May [phone] Huang [phone] Metabolic Panel, Comprehensive (61404)Indication: Hypokalemia On: 24-Sep-2017 Request Comments: fax a copy to Dr. Caitlin May [phone] Huang [phone] Renal function Panel (24640)Indication: Renal insufficiency (Renamed from Renal function impairment) On: 62-Ygu-936987:23 Request URIC ACID BLOOD (90247)Indication: Abnormal laboratory test On: 96-Krm-979067:53 Request Metabolic Panel, Comprehensive (78629)Indication: Hypokalemia On: 17-Sep-2017 Request Comments: fax a copy to Dr. Caitlin May [phone] Huang [phone] Metabolic Panel, Comprehensive (03494)Indication: Hypokalemia On: 10-Sep-2017 Request Comments: fax a copy to Dr. Caitlin May [phone] Huang [phone] Metabolic Panel, Basic (52753)Indication: Cardiomyopathy On: 72-Lhb-994965:02 Request Comments: now stat and prn CREATININE BLOOD (78306)Indication: Left leg swelling On: 11-Ezr-863993:05 Request Metabolic Panel, Basic (08964)Indication: Renal insufficiency (Renamed from Renal function impairment) On: 42-Vgb-890165:16 Request Comments: re check in 4 weeks T4, FREE (THYROXINE) (35783)Indication: Hypothyroidism On: 62-Udz-739263:49 Request CALCIFIDIOL (77193) VIT D 25Indication: Vitamin D deficiency On: 41-Cir-745019:47 Request TSH (THYROID STIMULATING HORMONE) (86359)Indication: Hypothyroidism On: 49-Lhn-495522:46 Request CREATININE BLOOD (08190)Indication: Abdominal pain, acute On: 29-Yqb-543585:34 Request Metabolic Panel, Basic (39690)Indication: Abdominal pain, acute On: 26-Mup-79207:31 Request T4, FREE (THYROXINE) (89560)Indication: Hypothyroidism On: :30 Request TSH (28434)Indication: Hypothyroidism On: :30 Request METABOLIC PANEL, COMPREHENSIVE (66028)Indication: DVT, bilateral lower limbs On: 70-Lcd-637508:48 Request PTT (Activated Partial Thromboplastin Time) (65613)Indication: DVT, bilateral lower limbs On: :29 Request PT (Prothrobim Time) (64846)Indication: DVT, bilateral lower limbs On: :29 Request Factor 2 (Prothrombin) Gene Mutation (65787)Indication: DVT, bilateral lower limbs On: :29 Request Factor V Leiden (16679)Indication: DVT, bilateral lower limbs On: :28 Request Antiphospholipid atb (99745)Indication: DVT, bilateral lower limbs On: :28 Request CBC, Platelets & Auto Diff (75921)Indication: Abdominal pain, acute On: 78-Ore-82201:38 Request Comments: coipy to Dr. jessie armendariz stat HEPATIC FUNCTION PANEL (38959)Indication: Abdominal pain, acute On: :37 Request Comments: to stat copy to Dr. natalie armendariz Metabolic Panel, Comprehensive (74725)Indication: Abdominal pain, acute On: :23 Request Comments: all STAT Sed Rate Erythrocyte (39797)Indication: Abdominal pain, acute On: 43-Kvq-52952:19 Request CBC, Platelets & Auto Diff (73405)Indication: Abdominal pain, acute On: :19 Request Ferritin (44366)Indication: Abnormal RBC indices On: :08 Request CALCIFEDIOL (46391)Indication: Vitamin D deficiency On: :02 Request Folic Acid Serum (24350)Indication: Memory impairment On: 57-Ous-77831:35 Request Methymalonic Acid, Serum (06899)Indication: Memory impairment On: :35 Request Vitamin B-12 (cyanocobalamin) (00470)Indication: Memory impairment On: :35 Request Metabolic Panel, Basic (62709)Indication: Cardiomyopathy in other diseases classified elsewhere On: 1-Kpn-188600:43 Request Urinalysis, Office (05135)Indication: Abdominal pain, acute On: 24-Mre-120540:47 Request URINE DAR CULTURE-IDENTIFICATN (13703)Indication: Abdominal pain, acute On: 22-Gji-054328:20 Request TSH (90811)Indication: Hypothyroidism On: 72-Jnu-523137:50 Request Comments: 8 weeks TSH (67329)Indication: Hypothyroidism On: 22-Iuw-242057:58 Request URINALYSIS, W/ MICRO (65562)Indication: Coronary artery disease On: :57 Request METABOLIC PANEL, COMPREHENSIVE (05364)Indication: Coronary artery disease On: :57 Request LIPID PANEL (30498)Indication: Coronary artery disease On: :57 Request CBC with auto diff (19818)Indication: Coronary artery disease On: :57 Request C-REACTIVE PROTEIN (62696)Indication: Abdominal pain, acute, generalized On: :31 Request Comments: stat CBC W/AUTO DIFF WBC (07040)Indication: Abdominal pain, acute, generalized On: :31 Request Comments: stat METABOLIC PANEL, COMPREHENSIVE (96073)Indication: Abdominal pain, acute, generalized On: :31 Request Comments: stat SED RATE ERYTHROCYTE (15235)Indication: Abdominal pain, acute, generalized On: 71-Ciw-004232:26 Request CBC with auto diff (18925)Indication: Cardiomyopathy On: :59 Request Comments: copy to Dr. valerio URINALYSIS, W/ MICRO (00237)Indication: Cardiomyopathy On: :58 Request METABOLIC PANEL, COMPREHENSIVE (99556)Indication: Cardiomyopathy On: :58 Request LIPID PANEL (87049)Indication: Cardiomyopathy On: :58 Request TSH (52979)Indication: Hypothyroidism On: :58 Request CBC W/AUTO DIFF WBC (29479)Indication: Coronary artery disease On: :08 Request Comments: copy to cardiology TSH (71311)Indication: Hypothyroidism On: :08 Request URINALYSIS, W/ MICRO (06768)Indication: Coronary artery disease On: :08 Request METABOLIC PANEL, COMPREHENSIVE (16377)Indication: Coronary artery disease On: :08 Request LIPID PANEL (48778)Indication: Coronary artery disease On: :08 Request METABOLIC PANEL, COMPREHENSIVE (17293)Indication: Coronary artery disease On: :15 Request Comments: 05-24 CBC WITH MANUAL DIFF (81151)Indication: Coronary artery disease On: :15 Request Comments: 05-24 TSH (89527)Indication: Hypothyroidism On: 99-Hth-169589:13 Request TSH (04648)Indication: Hypothyroidism On: 97-Evf-290808:18 Request CBC WITH MANUAL DIFF (13381)Indication: Coronary artery disease On: 3-Ntl-111484:11 Request Comments: copy to [facility] URINALYSIS, W/ MICRO (87471)Indication: Coronary artery disease On: 1-Xfs-042337:11 Request METABOLIC PANEL, COMPREHENSIVE (78118)Indication: Coronary artery disease On: 0-Xdv-080181:11 Request LIPID PANEL (37751)Indication: Coronary artery disease On: 1-Jwo-529543:11 Request TSH (00023)Indication: Hypothyroidism On: 3-Ylx-214735:11 Request TSH (87201)Indication: Hypothyroidism On: 98-Chx-404257:02 Request METABOLIC PANEL, COMPREHENSIVE (34653)Indication: Cardiomyopathy On: 02-Iey-887808:02 Request LIPID PANEL (16460)Indication: Cardiomyopathy On: 55-Kiy-404943:02 Request CBC WITH MANUAL DIFF (31167)Indication: Cardiomyopathy On: 17-Srj-767371:02 Request TSH (30857)Indication: Hypothyroidism On: :29 Request Renal function Panel (10091)Indication: Renal insufficiency (Renamed from Renal function impairment) On: :29 Request CBC (Auto) (86953)Indication: Cardiomyopathy On: :40 Request Metabolic Panel, Comprehensive (58113)Indication: Cardiomyopathy On: :40 Request T4, FREE (THYROXINE) (36745)Indication: Hypothyroidism On: 13-Sms-579200:39 Request TSH (28936)Indication: Hypothyroidism On: 42-Hla-868361:39 Request TSH (65631)Indication: Hypothyroidism On: :09 Request CBC (Auto) (45468)Indication: Cardiomyopathy On: :08 Request Renal function Panel (00676)Indication: Cardiomyopathy On: :08 Request Metabolic Panel, Basic (95316)Indication: Cardiomyopathy On: :03 Request T4, FREE (THYROXINE) (51011)Indication: Hypothyroidism On: :03 Request TSH (24689)Indication: Hypothyroidism On: :03 Request Metabolic Panel, Basic (76900)Indication: Renal insufficiency (Renamed from Renal function impairment) On: :36 Request T4, FREE (THYROXINE) (27172)Indication: Hypothyroidism On: :35 Request TSH (00314)Indication: Hypothyroidism On: :35 Request DAR CULTURE-OTHER (62879)Indication: Bursitis, olecranon On: 5-Irp-350810:18 Request Comments: olecranon bursa Metabolic Panel, Basic (41063)Indication: Hyperlipemia On: 56-Fhe-396205:09 Request Metabolic Panel, Basic (38865)Indication: Gastroenteritis On: 19-Bld-276630:56 Request Comments: stat CBC (Auto) (76366)Indication: Gastroenteritis On: 05-Ael-503440:56 Request Metabolic Panel, Basic (86115)Indication: Cardiomyopathy On: :53 Request TSH (31559)Indication: PVT (paroxysmal ventricular tachycardia) On: 47-Yje-762394:53 Request URINALYSIS (25566)Indication: Cardiomyopathy On: :53 Request CBC (Auto) (43260)Indication: Cardiomyopathy On: 19-Egp-458027:53 Request INFCT ANTGN TRICH VAGIN DIRECT PRB (78603)Indication: Vaginal discharge On: 33-Bnc-276760:31 Request GARDNERELLA VAG, NUCLEIC ACID DIR PROBE (34230)Indication: Vaginal discharge On: :31 Request ILEANA, NUCLEIC ACID DIRECT PROBE (40658)Indication: Vaginal discharge On: :31 Request Planned Encounters Medical; [facility] 2 Month FU - On: 06-Jul-2018 10:15 [facility] Clary TIRADO, Minerva Oseguera MD Planned Procedures Flu Vaccine (Quadrivalent) On: 01-Jun-2018 Intent 51678Qa: Visit, Nurse Comments: Lot #[id number]/30/2019Site-L dltd, IMDose prefilled syringegiven by:SORAIDA Calloway reviewed and ABN signed Aerosol Treatment (68534)By: On: 08-Jan-2018 Intent Clary TIRADO, Minerva Oseguera MD SCREENING DIGITAL On: 23-Sep-2017 Intent TOMOSYNTHESIS OF BREAST (72309)By: Clary TIRADO, Minerva Oseguera MD Venous Doppler - LowerBy: On: 23-Sep-2017 Intent Minerva Vergara MD Comments: lower left extremity follow up on DVT from 07-27 due october Minerva TIRADO CTA ABDOMEN AND PELVIS On: 28-Jul-2017 Intent INCLUDING IMAGE POSTPROCESSING (53727)By: Minerva Vergara MD, MD, Dana M VENOUS DOPPLER LOWER On: 28-Jul-2017 Intent EXTREMITY (36568)By: Clary Comments: upper and lower left legcall results to [phone] Minerva TIRADO MD, Dana M Radiology - [...] FLAT PLATE AND On: 04-Dec-2016 Intent ERECT (35277)By: Ida Quiñonez DO CT - Chest (IV Contrast On: 04-Dec-2016 Intent Needed)By: Ida Quiñonez DO Comments: pe protocol today CT - Abdomen (Without On: 25-Nov-2016 Intent Contrast)By: Minerva Vergara MD, MD, Dana M Spirometry (44272)By: On: 31-Oct-2016 Intent Minerva Vergara MD Comments: see scanned document of test done to see results reviewed today with patient Minerva TIRADO Radiology - ChestBy: Clary On: 31-Oct-2016 Intent Minerva TIRADO MD, Dana M Comments: call wet read Radiology - KUBBy: Clary On: 31-Oct-2016 Intent Minerva TIRADO MD, Dana M Comments: upright. call wet read to [phone] Bone Density StudyBy: Clary On: 29-Jul-2016 Intent Minerva TIRADO MD, Dana M MAMMOGRAM, BILATERAL On: 29-Jul-2016 Intent (19124)By: Minerva Vergara MD, MD, Dana M Flu Vaccine (Quadrivalent) On: 09-May-2016 Intent 25605Lp: Leta DE [place] ROS[place] Meka ELECTROCARDIOGRAM, COMPLETE On: 09-Aug-2015 Intent (ECG) (09722)By: Memo Armendariz CNP Radiology - ChestBy: Clary On: 17-Jul-2015 Intent Minerva TIRADO MD, Dana M Aerosol Treatment (35438)By: On: 14-Jul-2015 Intent Minerva Vergara MD, MD, Dana M Aerosol Treatment (73094)By: On: 29-May-2015 Intent Slarb [employer] Meka ADMINISTRATION OF INFLUENZA On: 25-Apr-2015 Intent VIRUS VACCINE (G0008)By: Minerva Vergara MD, MD, Dana M Flu Vaccine (Quadrivalent) On: 25-Apr-2015 Intent 76068Kk: Minerva Vergara MD Comments: lot: [id number]: 01/07/16site/route: L del/IMamt: 0.5mLVIS signed when applicableИВАН Rodriguez MD, Dana M ACUTE ABDOMINAL SERIES On: 27-Mar-2015 Intent (17383)By: Ida Quiñonez DO Comments: stat call wet read INFUSION, NORMAL SALINE On: 04-Nov-2014 Intent SOLUTION , 1000 CC (Special Comments: only 500 ccIV Therapy [id number], 1 inchSite: r acTolerated: well, x 2nd attempt. L ac infiltrated and rpessure applied then covered with gauze and bandageno redness or swelling, no s/s infiltrationMegan, V[employer]AR[employer]TRY Coverage Instructions Apply. See MCM: 2049) (J7030)By: Minerva Vergara MD, MD, Dana M Radiology - KUBBy: Clary On: 04-Nov-2014 Minerva Wright MD, MD, Dana M Comments: do today and call over wet read Radiology - Shoulder - On: 04-Nov-2014 Intent RightBy: Minerva Vergara MD, MD, Dana M Wax CurettesBy: Clary TIRADO, On: 15-Sep-2014 Intent Minerva Oseguera MD Ear Irrigation (29740)By: On: 15-Sep-2014 Intent Minerva Vergara MD, MD, Dana M Radiology - Shoulder - On: 15-Sep-2014 Intent RightBy: Minerva Vergara MD, MD, Dana M Radiology - ChestBy: Clary On: 15-Sep-2014 Intent Minerva TIRADO MD, Dana M Comments: by next week if not better with atb Aerosol Treatment (62523)By: On: 01-Sep-2014 Intent eMmo Armendairz CNP E DEXA SCAN AXIAL SKELETON On: 18-Feb-2014 Intent (50459)By: Minerva Vergara MD, MD, Dana M MAMMOGRAM, SCREENING, BOTH On: 18-Feb-2014 Intent BREAST (50728)By: Minerva Vergara MD, MD, Dana M INFUSION, NORMAL SALINE On: 29-Oct-2013 Intent SOLUTION , 250 CC (Special Coverage Instructions Apply. See MCM: 2049) (J7050)By: Tiera Carmen DO IV Needle placement On: 29-Oct-2013 Intent (23706)By: Kermit WEBER, Comments: 3rd attempt successful in R RJ Wagner Tiera IV Infusion (32132)By: Kermit On: 29-Oct-2013 Intent DOTiera Eprescribed prescriptions On: 29-Oct-2013 Intent (G8553)By: Tiera Carmen DO Aerosol Treatment (88486)By: On: 29-Oct-2013 Intent Tiera Carmen DO Solu- Medrol Injection, 125mg On: 29-Oct-2013 Intent (J2930)By: Kermit WEBER, Comments: lot: [id number]: 12/23site/route: RGM/IMamt:2mLVIS signed when applicableChelsea, STENOTYPIST Tiera Eprescribed prescriptions On: 26-Oct-2013 Intent (G8553)By: Clary TIRADO, Minerva Vergara MD, Minerva Painting Wax CurettesBy: Ciglenysa RN INTENSIVE CARE UNIT, On: 22-Oct-2013 Intent Saba Ear Irrigation (51340)By: On: 22-Oct-2013 Intent Ciesa ILIR Saba Eprescribed prescriptions On: 25-Jun-2013 Intent (G8553)By: Jeanne Gil LPN Wax CurettesBy: Clary TIRADO, On: 18-Jun-2013 Intent Minerva Vergara MD, Minerva Painting Ear Irrigation (29990)By: On: 18-Jun-2013 Intent Clary TIRADO, Minerva Vergara MD, Minerva Painting Eprescribed prescriptions On: 18-Jun-2013 Intent (G8553)By: Jeanne Gil LPN MAMMOGRAM, SCREENING, BOTH On: 16-Mar-2013 Intent BREASTS (15577)By: Clary Comments: 06-23 maddi TIRADO, Minerva Vergara MD, Minerva Painting Wax CurettesBy: Clary TIRADO, On: 16-Mar-2013 Intent Minerva Vergara MD, Minerva Painting Ear Irrigation (16343)By: On: 16-Mar-2013 Intent BoneMinerva castañeda MD, MD, Dana M Inhaler Demonstration On: 15-Feb-2013 Intent (67081)By: Memo Armendariz CNP Aerosol Treatment (04145)By: On: 15-Feb-2013 Intent Memo Armendariz CNP Eprescribed prescriptions On: 08-Dec-2012 Intent (G8553)By: Jeanne Gil LPN Aerosol Treatment (31845)By: On: 03-Dec-2012 Intent Minerva Vergara MD, MD, Dana M Pulse Oximetry (61493)By: On: 03-Dec-2012 Intent ARON Lawrence Wax CurettesBy: Kala HAZEL, On: 25-Nov-2012 Intent Memo Weeks Ear Irrigation (56252)By: On: 25-Nov-2012 Intent Mmeo Armendariz CNP SPECIMEN HNDLNG/TRNSPRT, OFFC On: 25-Nov-2012 Intent > LAB (46548)By: Nova Posadas LPN Breast Screening - On: 28-Apr-2012 Intent BilateralBy: Minerva Vergara MD, MD, Dana M Bone Density StudyBy: Clary On: 28-Apr-2012 Intent Minerva TIRADO MD, Dana M Aerosol Treatment (43820)By: On: 28-Apr-2012 Intent Minerva eVrgara MD, MD, Dana M TDAP VACCINE >7 IM (11532)By: On: 06-Feb-2012 Intent Sneha Vasquez doppler/ultrasound - right On: 20-Jan-2012 Intent calfBy: Minerva Vergara MD Comments: attention subcutaneous mass, history of clots Minerva Vergara MD Ear Irrigation (08624)By: On: 11-Oct-2011 Intent Minerva Vergara MD Comments: med amt of wax removed from the left ear. small amt of wax removed from the right ear. pt tolerated well. Minerva TIRADO Wax CurettesBy: Clary TIRADO, On: 11-Oct-2011 Intent Minerva Oseguera MD Aerosol Treatment (61915)By: On: 08-Oct-2011 Intent Ciesa RN INTENSIVE CARE UNIT, Saba Aerosol Treatment (78704)By: On: 04-Oct-2011 Intent Kala HAZEL Saba EKG (85803)By: Clary TIRADO, On: 15-Aug-2011 Intent Minerva Oseguera MD Comments: see scanned document. Nerve ConductionBy: Clary On: 29-Jul-2011 Intent Minerva TIRADO MD, Dana M Comments: lower leg EMGBy: Minerva Vergara MD On: 29-Jul-2011 Intent Minerva Vergara MD Solu -Medrol Injection, 125 On: 16-Apr-2011 Intent mg ([id number])By: Kala HAZEL, Comments: Lot:[id number]:sep 11 2013Amt:125mgRoute:IMSite:right hip Given By: RJ Soriano THER/PROPH/DIAG IV INF, INIT On: 15-Feb-2011 Intent (58141)By: Minerva Vergara MD, MD, Dana M Rocephin [...] Minerva TIRADO MD, Dana M Pulse Oximetry ([id number])By: On: 03-Sep-2010 Intent ARON [facility] - Lumbar SpineBy: On: 29-Aug-2010 Intent Ida Quiñonez DO Comments: call wet read Venous Doppler - LeftBy: On: 23-Jul-2010 Intent Minerva Vergara MD Comments: leg. send copy Dr. Thompson in [place] orthosx Minerva TIRADO HYDRATION IV INFUSION, INIT On: 28-Jun-2010 Intent (29904)By: Minerva Vergara MD Comments: only gave 500 cc of LR with CMP historyLot #:[id number] date:mount given:500ml Route: IVSite given:left wrist Given by: tutoria GmbHssell Butterfly needle placed to left wrist with minimal difficulty 500ml LR infused Minerva Vergara MD Planned Medications INFUSION, NORMAL SALINE SOLUTION , 1000 CC Ordered: 04-Nov-2014 Pending Minerva Vergara MD, MD, Dana M INFUSION, NORMAL SALINE SOLUTION , 250 CC Ordered: 29-Oct-2013 Pending Kermit , Tiera INJECTION, CEFTRIAXONE SODIUM, PER 250 MG [...] The patient does have durable power of litigation attorney associate and living will. The patient has noticed nothing from the geriatic depression scale. Other providers contributing to the patient's care are shot polisher and other: (Dr. [facility]). Encounter Diagnosis: [...] cancer screening up to date- drove to [place] few weeks ago- no family hx of [...] for Follow up ER: Went to ER [facility] 4-6 4-7 for abdominal painWas taken off of [...] care: Fall onto concrete with concussion syndrome, fransico nd End: 14-Jun-2015 14:53 vertigo, had scalp [...] on the back and the face. End: 2-Alireza-2015 7:02 Encounter Diagnosis: Lesion-Unknown behavior (238.2) Comprehensive [...] past 6 months, gotten lost, has a [employer] neckla ce or bracelet or put area rugs through house. The patient does have durable power of litigation attorney associate and living will. The patient has noticed having problems with memory than others and lack of energy. Other providers contributing to the patient's care are shot polisher (Reina) and other: (eye doctor - has [...] Nutrition: balanced diet and supplemental vitamins. The wa dical issues the patient is following up [...] [facility] End: 19-Apr-2011 10:08 Implant Surgeon [place], [place] ) . There have been no [...]
--- OUTSIDE RECORDS SUMMARY | 2018-09-02 18:20 | XMS RPT_ITS | Continuity of Care Document ---
:1940 Author Organization [facility] Address [facility] [place] [address] Phone Care Team Providers Name Role Phone [...] left leg wtih DVT or overall fluid [id number] 20% Status: Active Constipation (K59.00, 564.00) Comments: [...] on neurotin and help some. Dr at [facility] not want to do surgery. using accupuncture [...] {Tablet} Refills: 3 Ordered:24-Oct-2017 Clary TIRADO, Minerva Arlelano MD Start : 24-Oct-2017 Active ASPIRIN, 81MG [...] Puff(s) daily for 30 days Quantity: 1 {[place]} Refills: 5 Ordered:22-Jan-2018 Khang DO, Ida A [...] Quantity: 20 {Capsule} Refills: 0 Ordered:18-Nov-2013 ARON Lawrnece Start : 26-Oct-2013 End : 18-Nov-2013 Inactive [...] for 10 days Refills: 0 Ordered:26-Oct-2013 Long SEAM RUBBING MACHINE OPERATORJeanne Start : 22-Oct-2013 End : [...] Status: Inactive as of 04-Apr-2017 Vaccine for jrawrjbuzd-kvqmzme-jfdmbefht with poliomyelitis (Z23, V06.3) Status: Inactive as [...] Dates Details [facility]x [facility] Completed Comments: with 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 [place] [address] Pacemaker Check Date of Service: 05/01/18 1428 MR#: [id number] Acct: [id number] Name: IRIS ARRIAGA Rep #: [id number] : 1940 From: Kim Pickard Age/Sex: 78/F Location: [facility] Status: Signed Billing Codes ICD Device Billing: ICD Dev Prog Eval, Single 05/01/18 1430 <Elect ronically signed by Kim Pickard > Date Kim Pickard 05/01/18 1634<Electronically signed by Gurdeep Huang MD> Cosigner Sign ature: Date (if applicable) Gurdeep Huang MD CC: 18-Mar-2018 Pulmonary Visit Report Result: Comments: See Note; NOTES: [facility] [place] [address] [place] [address] OFFICE VISIT Date of Service: 03/18/18 MR#: [id number] Acct: [id number] Name: IRIS STRINGER CH Rep #: [id number] : 1940 Provider: Glenna Anderson Age/Sex: 78/F Location: [facility] Status: Signed Assessment AND Plan Problems 1. 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 Interrogation shows no VT/VF [...] in office Interview Reason: routine follow up Supervisor Lamp Shades: Medtronic Name: Protecta VR Model: [id number] Serial #: [id number] Implant Date: 04/29/13 Year(s): 4 Implant Physician: Dr. Jose Murphy Patient Characteristics Atrial Indication: Paroxysmal atrial fibrillation Ventricular Indication: Nonsustained VT Patient Substrate: Nonischemic cardiomyopathy By: Echo Implant DFT: 18J Underlying rhythm: Sinus rhythm Pacemaker Dependent: No Device Characteristics Device: Single Chamber Type: Implantable defibrillator Remote Follow-Up: No Device Physical Exam Yes Incision well healed Leads Lead #1 Supervisor Lamp Shades Lead 1: Medtronic Model Lead 1: 5076 Serial# Lead 1: [id number] Date Implanted Lead 1: 09/03/04 Position Lead 1: RV Lead #2 Supervisor Lamp Shades Lead 2: Medtronic Model Lead 2: 6943 Serial# Lead 2: [id number] Date Implanted Lead 2: 11/18/00 Position Lead [...] R00.2 6. Atherosclerot ic heart disease of [place]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 with angina pectoris I25.119 7. Syncope R55 02/01/18 1335 <Electronically signed by Kim Pickard > Date Kim Pickard 02/02/18 0800<Electronically signed by Gurdeep Huang MD> Cosigner Signature: Date (if applicable) Gurdeep Huang MD CC: 27-Oct-2017 Venous Duplex Lower Extremity Result: Comments: See Note; NOTES: [facility] [address] [place] [address] Venous Duplex US, Unilateral 10/27/17 0952 MR#: [id number] Acct: [id number] Name: IRIS HOU Rep #: [id number] : 1940 77 From: Alejandro Armendariz MD [...] Date Dictated: 10/27/17 0952 Date Transcribed: 10/27/171613 Game Agent: Signed 15-Oct-2017 Pulmonary Visit Report Result: Comments: See Note; NOTES: [facility] [address] [place] [address] OFFICE VISIT Date of Service: 10/15/17 MR#: [id number] Acct: [id number] Name: IRIS STRINGER CH Rep #: [id number] : 1940 Provider: Glenna Anderson Age/Sex: 77/F Location: [facility] Status: Signed Assessment AND Plan 1. URMILA [...] Plan Detail Follow Up 3 Months (MIRNA) [facility] Hospital FU: Chief Complaint: Shortness of breath [...] body aches. She has not utilized any uqmw-lqz-jyodamt medications for her shortness of breath. 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 [id number] Electronically Signed: Ed Fink MD at 11:10 EST Tel [phone], Service support , CC: Minerva Vergara MD Game Agent: Signed 06-Oct-2017 Office Visit Report Result: Comments: See Note; NOTES: [facility] [address] [place] [address] OFFICE VISIT Date of Service: 09/25/17 MR#: [id number] Acct: [id number] Patient: IRIS ARRIAGA Rep #: [id number] : 1940 Provider: Kim Pickard Age/Sex: 77/F Location: [facility] Status: Signed Comments Summary Comments: Single Chamber ICD Evaluation: Interrogation shows no VT/VF episodes since 06/17/17. Left pectoral pocket/incision w/o s/s of infection or erosion. Pt offers no cardiac complaints. Presenting rhythm shows NSR @ 92 bpm. DEPALLETIZER OPERATOR=<0.1%. Lead impedance, sensing and pace/sense thres hold remain stable. No parameter changes made. Counters cleared. Next f/u appt scheduled for in 3 mos. Device Device Date Interviewed: 09/25/17 Follow-up Location: in office Interview Reason: routine follow up Supervisor Lamp Shades: Medtronic Name: Protecta VR Model: [id number] Serial #: [id number] Implant Date: 04/29/13 Year(s): 4 Implant Physician: [...] Incision well healed Leads Le ad #1 Supervisor Lamp Shades Lead 1: Medtronic Model Lead 1: 5076 Serial# Lead 1: [id number] Date Implanted Lead 1: 09/03/04 Position Lead 1: RV Additional Details: pace/sense lead Lead #2 Supervisor Lamp Shades Lead 2: Nm marcus Model Lead 2: 6943 Serial# Lead 2: [id number] Date Implanted Lead 2: 11/18/00 Position Lead [...] Visit Report Result: Comments: See Note; NOTES: [facility] [address] [place] [address] OFFICE VISIT Date of Service: 09/11/17 MR#: [id number] Acct: [id number] Name: IRIS ARRIAGA Rep #: [id number] : 1940 Provider: Gurdeep Huang MD Age/Sex: 77/F Location: [facility] Status: Signed HPI 6 M FU: [...] that she was evaluated for such at [facility]. 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 [...] artery disease) I25.10 Coronary Disease-Associated Artery/Lesion type: [place] artery Long-term use of high-risk medication Z79.899 [...] artery disease) I25.10 Coronary Disease-Associated Artery/Lesion type: [place] artery Long-term use of high-risk medication Z79.899 09/11/17 1716 <Electronically signed by Gurdeep Huang MD> Date Gurdeep Huang MD Cosigner Signature: Date ___ (if applicable) CC: Minerva Vergara MD 28-Jul-2017 Venous Duplex Lower Extremity Result: Comments: See Note; NOTES: [facility] [address] [place] [address] Venous Duplex US, Unilateral 07/28/17 0942 MR#: [id number] Acct: [id number] Name: IRIS HOU Rep #: [id number] : 1940 77 From: Alejandro Armendariz MD [...] MD Date Dictated: 07/28/17941 Date Transcribed: 07/28/171751 Game Agent: Signed 28-Jul-2017 CT ANGIO ABD AND PEL W/O AND W/DYE Result: Comments: See Note; NOTES: [facility] Imaging Services [address] [place] [address] CT ANGIO ABD AND PEL W/O AND W/DYE MR#: [id number] Acct: [id number] Name: IRIS ARRIAGA Rep #: [id number] : 1940 F 77 From: Apolinar Ansari DO PCP: Minerva Vergara MD Status: REG CLI Study: CT ANGIO ABD AND PEL W/O AND W/DYE Date of Exam: 07/28/17 Exam# [id number] Ordering Dr: Minerva Child i, MD STUDY: [...] Service support , CC: Minerva Vergara MD Game Agent: Signed 19-Feb-2017 6 Minute Walk Test Result: Comments: See Note; NOTES: [facility]monary Services/Neurology [address] [place] [address] MR#: [id number] Acct: [id number] Name: IRIS ARRIAGA Rep #: [id number] : 1940 77 From: Jeremie Schultz MD Referring Dr: Bruno Barcenas D.O. Date: Ordering Dr: Sex: F C Location: PSN PSN 6 Minute Walk Test - 6 Minute Walk Test 6 Minute Walk Test: 6 Minute Walk Test PS N:6-Minute Walk Test Start: 02/19/17 12:50 Freq: Status: Active Document 02/19/17 12:50 FR (Rec: 02/19/17 12:53 FR [id number]) 6 Minute Walk Test Date Performed 02/19/17 [...] Date Dictated: 02/19/17 1553 Date Transcribed: 02/19/171552 Game Agent: Jeremie Schutlz Signed 03-Jan-2017 Abdomen/Pelvis WITH Contrast Result: Comments: See Note; NOTES: [facility] Imaging Services [address] [place] [address] Ver[place]ana 4d Abdomen/Pelvis WITH Contrast MR#: [id number] Acct: [id number] Name: JARON ARRIAGA Rep #: [id number] : 1940 F 76 From: Ed Fink MD PCP: Minerva Vergara MD Status: REG CLI Study: Abdomen/Pelvis WITH Contrast Date of Exam: 01/03/17 Exam# [id number] Ordering Dr: Minerva Bartlett MD STUDY: CT [...] Ed Fink MD at 13:03 EDT Tel [phone], Service support , CC: Minerva Vergara MD Game Agent: Signed 01-Jan-2017 Pulmonary Function Report Comp Result: Comments: See Note; NOTES: [facility] Services/Neurology [address] [place] [address] Pulmonary Function Test (Comp) MR#: [id number] Acct: [id number] Name: CATHLEEN ARRIAGA Rep #: [id number] : 1940 76 From: Bruno Barcenas DO Referring Dr: Minerva Vergara MD Status: REG CLI Ordering Dr: Minerva Vergara MD Date: 12/31/16 Location: [facility] Sex: F C DATE OF SERVICE: 12/10 [...] C: Referring Provider . T: NTS JOB: [id number] 01/01/17 1057 <Electronically signed by Christian Barcenas DO> Date Bruno Barcenas DO CC: Minerva Vergara MD; Bruno Barcenas D.O. Date Dictated: 12/31/16 160 Date Transcribed: 12/31/161600 Game Agent: Signed 26-Dec-2016 Echocardiogram Complete Result: Comments: See Note; NOTES: [facility] [address] [place] [address] Echo Complete 12/25/16 1357 MR#: [id number] Acct: [id number] Name: IRIS ARRIAGA Rep #: [id number] : 1940 76 From: Gurdeep Huang MD [...] Dictated: 12/25/16 1357 Date Transcribed: 12/26/16 09 Game Agent: Signed 04-Dec-2016 Abd Inc Decub and/or Erect Result: Comments: See Note; NOTES: [facility] [address] [place] [address] Ver[place]ana 4d Abd Inc Decub and/or Erect MR#: [id number] Acct: [id number] Name: ARI ARRIAGA Jose Manuel Tucker Rep #: [id number] : 1940 F 76 From: Mele Brown MD PCP: Minerva Vergara MD Status: REG CLI Study: Abd Inc Decub and/or Erect Date of Exam: 12/04/16 Exam# [id number] Ordering Dr: Anita uQiñonez DO STUDY: X-RAY - ABDOMEN/PELVIS REASON FOR [...] CC: Minerva Vergara MD; Ida Quiñonez DO Game Agent: Signed 04-Dec-2016 CTA Chest W/WO Contrast Result: Comments: See Note; NOTES: [facility] Imaging Services [address] [place] [address] 4d CTA Chest W/WO Contrast MR#: [id number] Acct: [id number] Name: IRIS ARRIAGA Rep #: [id number] : 1940 F 76 From: Ed Fink MD PCP: Minerva Vergara MD Status: REG CLI Study: CTA Chest W/WO Contrast Date of Exam: 12/04/16 Exam# [id number] Ordering Dr: Ida Quiñonez DO STUDY: CTA [...] Megan Fink MD at 15:43 EDT Tel [phone], Service support , CC: Minerva Vergara MD; Ida Quiñonez DO Game Agent: Signed 03-Dec-2016 Venous Duplex Lower Extremity Result: Comments: See Note; NOTES: [facility] [address] [place] [address] Venous Duplex US - David Extrem 12/03/16 1553 MR#: [id number] Acct: [id number] Name: IRIS ARRIAGA Rep #: [id number] : 1940 76 From: Alejandro Armendariz MD [...] 12/03/16 1553 Da te Transcribed: 12/03/16 1850 Game Agent: Signed 02-Dec-2016 Abdomen without IV Contrast Result: Comments: See Note; NOTES: [facility] Services [address] [place] [address] Ver[place]ana 4d Abdomen without IV Contrast MR#: [id number] Acct: [id number] Name: CAMILA ARRIAGA Rep #: [id number] : 1940 F 76 From: Moses Chase MD PCP: Minerva Vergara MD Status: REG CLI Study: Abdomen without IV Contrast Date of Exam: 12/02/16 Exam# [id number] Ordering Dr: Minerva Broussard MD STUDY: CT [...] diverticulitis. The abdominal wall is intact. A Banco umbrella filter is in place but 4 [...] left.. CT/Abdomen without IV Contrast IMPRESSION: A Banco umbrella filter in place with at least [...] Service support , CC: Minerva Vergara MD Game Agent: Signed 31-Oct-2016 Abd Inc Decub and/or Erect Result: Comments: See Note; NOTES: [facility] Services [address] [place] [address] Ver[place]ana 4d Abd Inc Decub and/or Erect MR#: [id number] Acct: [id number] Name: ARI ARRIAGA Rep #: [id number] : 1940 F 76 From: Ed Fink MD PCP: Minerva Vergara MD Status: REG CLI Study: Abd Inc Decub and/or Erect Date of Exam: 10/31/16 Exam# [id number] Ordering Dr: Minerva Vergara MD STUDY: X-RAY [...] Ed Fink MD at 10:26 EDT Tel [phone], Service support [phone], CC: Minerva Vergara MD Game Agent: Signed 31-Oct-2016 Chest PA and Lateral Result: Comments: See Note; NOTES: [facility] [address] [place] [address] Ver[place]ana 4d Chest PA and Lateral MR#: [id number] Acct: [id number] Name: IRIS ARRIAGA Re p #: [id number] : 1940 F 76 From: Ed Fink MD PCP: Minerva eVrgara MD Status: REG CLI Study: Chest PA and Lateral Date of Exam: 10/31/16 Exam# [id number] Ordering Dr: Minerva Vergara MD S DY: [...] Ed Fink MD at 10:27 EDT Tel [phone], Service support [phone], CC: Minerva Vergara MD Game Agent: Signed 26-Sep-2016 Dexa Bone Density Study (HP) Result: Comments: See Note; NOTES: [facility] Services [address] [place] [address] Ver[place]ana 4d Dexa Bone Density Study (HP) MR#: [id number] Acct: [id number] Name: JARON ARRIAGA Rep #: [id number] : 1940 F 76 From: Ed Fink MD PCP: Minerva Vergara MD Status: REG CL Study: Dexa Bone Density Study (HP) Date of Exam: 09/26/16 Exam# [id number] Ordering Dr: Minerva Bartlett MD STUDY: DUAL [...] Fink MD at 15:0 0 EST Tel [phone], Service support [phone], CC: Minerva Vergara MD Game Agent: Signed 26-Sep-2016 SCREENING MAMM (CAD), BILAT Result: Comments: See Note; NOTES: [facility] Services [address] [place] [address] Verdana 4d SCREENING MAMM (CAD), BILAT MR#: [id number] Acct: [id number] Name: CAMILA ARRIAGA Rep #: [id number] : 1940 F 76 From: Ed Fink MD PCP: Minerva Vergara MD Status: REG CLI Study: SCREENING MAMM (CAD), BILAT Date of Exam: 09/26/16 Exam# [id number] Ordering Dr: Minerva Child i, MD MAMMOGRAPHY [...] delay biopsy of a clinically suspicious abnormality. [id number] Electronically Signed: Ed Fink MD at 7:48 EST Tel [phone], Service support [phone], CC: Minerva Vergara MD Game Agent: Signed 09-Feb-2016 Operative Report Result: Comments: See Note; NOTES: [facility] Medical Records Department [address] [place] [address] Operative Report MR#: [id number] Acct: [id number] Name: CAMILA ARRIAGA Rep #: [id number] : 1940 76 From: Clifford Gifford MD [...] without difficulty to the cecum, identified by big sandy's foot appearance, ileocecal valve and appendiceal orifice. [...] patient. Kamari Gifford MD T: NTS JOB: [id number] 02/09/16 0706 <Electronically signed by Clifford Gifford MD> Date Clifford Gifford MD Cosign er Signature (If Indicated): Date CC: Clifford Gifford; Minerva Vergara MD Date Dictated: 01/30/16 0833 Date Transcribed: 01/30/16832 Game Agent: Signed 15-Nov-2015 Gallbladder Result: Comments: See Note; NOTES: [facility] Services [address] [place] [address] Ver[place]ana 4d Gallbladder MR#: [id number] Acct: [id number] Name: IRIS ARRIAGA Rep #: [id number] : 1940 F 75 From: Sofia Storey MD PCP: Minerva Vergara MD Status: REG ER Study: Gallbladder Date of Exam: 11/15/15 Exam# [id number] Ordering Dr: Jalil Nogueira MD STUDY: ULTRASOUND [...] MD at 21:57 EDT , Service support [phone], F ax [phone] CC: Minerva Vergara MD; Jalil Nogueira MD Game Agent: Signed 15-Nov-2015 Abdomen/Pelvis WITH Contrast Result: Comments: See Note; NOTES: [facility] Imaging Services [address] [place] [address] Ver[place]ana 4d Abdomen/Pelvis WITH Contrast MR#: [id number] Acct: [id number] Name : IRIS ARRIAGA Rep #: [id number] : 1940 F 75 From: Sofia Storey MD PCP: Bonezzi MD,Minerva Status: REG ER Study: Abdomen/Pelvis WITH Contrast Date of Exam: 11/15/15 Exam# [id number] Order ing Dr: Jalil Nogueira MD STUDY: [...] MD at 20:10 EDT , Service support [phone], CC: Minerva Vergara MD; Jalil Nogueira MD Game Agent: Signed 31-Oct-2015 Cerv Spine 4 or 5 Views Result: Comments: See Note; NOTES: [facility] Services [address] [place] [address] Ver[place]ana 4d Cerv Spine 4 or 5 Views MR#: [id number] Acct: [id number] Name: IRIS WRAY Rep #: [id number] : 1940 F 75 From: Alexey Stephens MD PCP: Minerva Vergara MD Status: REG CLI Study: Cerv Spine 4 or 5 Views Date of Exam: 10/31/15 Exam# [id number] Ordering Dr: Tiffanie Corcoran DO STUDY: X-RAY [...] a t 13:54 EDT , Service support [phone], RAD/Cerv Spine 4 or 5 Views IMPRESSION: Severe cervical spondylosis. Electronically Signed: Earl Stephens MD, FACR at 13:54 EDT , Service support [phone], CC: Tiffanie Saha DO; Minerva Vergara MD Game Agent: Signed 28-Sep-2015 PT D/C Summary (1) Result: Comments: See Note; NOTES: [facility] [address] [place], [place] [address] Fax REHABILITATION SE RVICES DISCHARGE SUMMARY MR#: [id number] Acct: [id number] Name: IRIS ARRIAGA Rep #: [id number] : 1940 75 From: Kelvin Newman DPT, [...] please feel free to call me at [phone]. Thank you for the referral of this patient. Sincerely, Kelvin Newman <Electronically signed by Kelvin Newman DPT, OCS, CSCS> 09/28/15 0944 CC: Minerva Vergara MD; Nerissa Bhat EBG Signed 24-Aug-2015 PT Communication Result: Comments: See Note; NOTES: [facility] Physical Therapy [address] [place] [address] Fax REHABILITATION SE RVICES PROGRESS NOTE MR#: [id number] Acct: [id number] Name: IRIS ARRIAGA Rep #: [id number] : 1940 75 From: Kelvin Newman Referring Dr.: Nerissa Bhat Status: REG RCR Insurance: [employer] MEDIC[employer] PPO ANTHEM PT Communication Note 08/24/15 Dear Mert Moore and Dr. Vergara, Thank you [facility]. I [...] - PT Result: Comments: See Note; NOTES: [facility] [address] [place] [address]. [address] [place] [address] Fax [facility] MR#: [id number] Acct: [id number] Name: IRIS ARRIAGA Rep #: [id number] : 1940 75 From: Kelvin Newman Referring [...] Duration: 4-6 Weeks - Subjective Fell at [employer] in May and hurt head. Then p assed out shortly thereafter went to ER and was dehydrated. Went to Dr. vergara a couple weeks ago and was sent to ER for low blood pressure. Spent a few days in hospital and found that the pig valve is thickening. Will go to [place] later in month as Dr. Huang sent [...] to be FAXED BACK to us at [phone] for Medicare purp oses. Please let me know if there are questions or concerns regarding this plan of care. Physician Signature: Date: <Electron ically signed by Kelvin Newman > 08/17/15 0944 CC: Minerva Vergara MD; Nerissa Bhat EBG Signed For Medicare only, by signing this I certify the plan of care. Physicians Signature Date 09-Aug-2015 Brain/Head without Contrast Result: Comments: See Note; NOTES: [facility] Imaging Services [address] [place] [address] Ver[place]ana 4d Brain/Head without Contrast MR#: [id number] Acct: [id number] Name: IRIS ARRIAGA Rep #: [id number] : 1940 F 75 From: Robert Osborn MD PCP: Minerva Vergara MD Status: REG Study: Brain/Head without Contrast Date of Exam: 08/09/15 Exam# [id number] Ordering D r: Sneha Baptiste MD STUDY: [...] at 13:15 EST Tel , Service support [phone], CC: Minerva sierra MD; Sneha Baptiste MD Game Agent: Signed 09-Aug-2015 Chest 1 View (Portable) Result: Comments: See Note; NOTES: [facility] Imaging Services [address] [place] [address] Ver[place]ana 4d Chest 1 View (Portable) MR#: [id number] Acct: [id number] Name: IRIS WRAY Rep #: [id number] : 1940 F 75 From: Robert Osborn MD PCP: Minerva Vergara MD Status: REG ER Study: Chest 1 View (Portable) Date of Exam: 08/09/15 Exam# [id number] Ordering Dr: Sneha Baptiste MD STUDY: X-RAY [...] at 12:43 EST Tel , Service support [phone], RAD/Chest 1 View (Portable) IMPRESSION: No acute pulmonary process, no interval change Electronically Signed: Josesito Osborn MD at 12:43 EST Tel , Service support [phone], CC: Minerva Vergara MD; Sneha Baptiste MD Game Agent: Signed 20-Jul-2015 Chest PA and Lateral Result: Comments: See Note; NOTES: [facility] Imaging Services [address] [place] [address] Ver[place]ana 4d Chest PA and Lateral MR#: [id number] Acct: [id number] Name: IRIS ARRIAGA Rep #: [id number] : 1940 F 75 From: Ed Fink MD PCP: Minerva Vergara MD Status: REG CLI Study: Chest PA and Lateral Date of Exam: 07/20/15 Exam# [id number] Ordering Dr: Minerva Amezquita MD STUDY: X-RAY [...] Ed Fink MD at 13:14 EST Tel [phone], Service support [phone], RAD/Chest PA and Lateral IMPRESSION: No acute abnormality is seen. Electronically Signed: Ed Fink MD at 13:14 EST Tel [phone] , Service support [phone], CC: Minerva Vergara MD Game Agent: Signed 06-Jun-2015 Brain/Head without Contrast Result: Comments: See Note; NOTES: [facility] Imaging Services [address] [place] [address] Ver[place]ana 4d Brain/Head without Contrast MR#: [id number] Acct: [id number] Name: IRIS ARRIAGA Rep #: [id number] : 1940 F 75 From: Ed Fink MD PCP: Minerva Vergara MD Status: REG ER Study: Brain/Head without Contrast Date of Exam: 06/06/15 Exam# [id number] Darby sarojing Dr: Kermit Verduzco MD STUDY: CT [...] Fink MD a t 16:13 EDT Tel [phone], Service support [phone], CC: Minerva Vergara MD; Kermit Verduzco MD Game Agent: Signed 06-Jun-2015 Chest 1 View (Portable) Result: Comments: See Note; NOTES: [facility] Imaging Services [address] [place] [address] Verda 4d Chest 1 View (Portable) MR#: [id number] Acct: [id number] Name: IRIS WRAY Rep #: [id number] : 1940 F 75 From: Farhad Cedillo MD PCP: Minerva Vergara MD Status: REG ER Study: Chest 1 View (Portable) Date of Exam: 06/06/15 Exam# [id number] Ordering Dr: Kermit Verduzco MD STUDY: X-RAY [...] at 17:06 EDT Tel , Service support [phone], [place] ER #: [id number] RAD/Chest 1 View (Portable) IMPRESSION: 1. Left-sided bipolar pacemaker seen with leads appearing in good position. 2. Moderate cardiomegaly. 3. Status post sternotomy changes. 4. There is no evidence of infiltrate, atelectasis, or pleural fluid. Electronically Signed: Farhad Cedillo MD at 17:06 EDT Tel , Service support [phone], Fax CC: Minerva Vergara MD; Kermit Verduzco MD Game Agent: Signed 06-Jun-2015 Pelvis 1 or 2 Views Result: Comments: See Note; NOTES: [facility] Services [address] [place] [address] Verdana 4d Pelvis 1 or 2 Views MR#: [id number] Acct: [id number] Name: IIRS ARRIAGA Rep #: [id number] : 1940 F 75 From: Ed Fink MD PCP: Minerva Vergara MD Status: REG ER Study: Pelvis 1 or 2 Views Date of Exam: 06/06/15 Exam# [id number] Ordering Dr: Kermit Verduzco MD STUDY: X-RAY [...] Ed Fink MD at 16:15 EDT Tel [phone], Service support [phone], RAD/Pelvis 1 or 2 Views IMPRESSION: Status post bilateral total hip replacement. Elect ronically Signed: Ed Fink MD at 16:15 EDT Tel [phone], Service support [phone], CC: Minerva Vergara MD; Kermit Verduzco MD Game Agent: Signed 06-Jun-2015 Spine Cervical without Contras Result: Comments: See Note; NOTES: [facility] [address] [place] [address] Verdana 4d Spine Cervical without Contras MR#: [id number] Acct: [id number] Na me: IRIS ARRIAGA Rep #: [id number] : 1940 F 75 From: Ed Fink MD PCP: Minerva Vergara MD Status: REG ER Study: Spine Cervical without Contras Date of Exam: 06/06/15 Exam# [id number]: Kermit Verduzco MD STUDY: [...] Ed Fink MD at 16:15 EDT Tel [phone], Service support [phone], CC: Minerva Vergara MD; Kermit Verduzco MD Game Agent: Signed 19-Apr-2015 Spine Lumbar without Contrast Result: Comments: See Note; NOTES: [facility] Services [address] [place], [place] [address] [address] CAT Scan Report MR#: [id number] Acct: [id number] Name: IRIS ARRIAGA Rep #: [id number] : 1940 F 75 From: Tami Rodriguez MD PCP: Minerva Vergara MD Status: REG CLI Study: Spine Lumbar without Contrast Date of Exam: 04/19/15 Exam# [id number] Ordering Dr: Monica Mir, Out o. STUDY: [...] at 14:58 EDT Tel , Service support [phone], CC: Minerva Vergara MD; OUT OF TOWN DOCTOR Game Agent: Signed 19-Apr-2015 Lumbar Myelogram Result: Comments: See Note; NOTES: [facility] [address] [place] [address] Radiology Report MR#: [id number] Acct: [id number] Name: IRIS ARRIAGA Rep #: [id number] : 1940 F 75 From: Tami Rodriguez MD PCP: Minerva Vergara MD Status: REG CLI Study: Lumbar Myelogram Date of Exam: 04/19/15 Exam# [id number] Ordering Dr: CRISTIAN COFFEY CLINICAL HISTORY : [...] at 15:12 EDT Tel , Service support [phone], RAD/Lumbar Myelogram IMPRESSI ON: There is severe spinal canal stenosis at L4-5. Electronically Signed: Jessy Rodriguez MD at 15:12 EDT Tel , Service support [phone], CC: Gina Vergara MD; CRISTIAN COFFEY Game Agent: Signed 10-Apr-2015 Discharge Instruction Result: Comments: See Note; NOTES: [facility] Medical Records Department [address] [place] [address] Discharge Instruction 04/03/15 1440 MR#: [id number] Acct: [id number] Name: IRIS ARRIAGA Rep #: [id number] : 1940 75 From: Ellen Gilman MD [...] problems, contact your doctor. Call [facility] ([phone]) or report to the closest Emergency Room. Call 911 if necessary. 04/03/15 1441 <Electronically signed by Ellen Gilman MD> Date Ellen Gilman MD 04/10/15 0835<Electronically signed Juli Polanco MD> Cosigner Signature (If Indicated): Date Rickie Polanco MD CC: Minerva Vergara MD 10-Apr-2015 Discharge Instruction Result: Comments: See Note; NOTES: [facility] Medical Records Department [address] [place] [address] Discharge Instruction 04/03/15 1448 MR#: [id number] Acct: [id number] Name: IRIS ARRIAGA Rep #: [id number] : 1940 75 From: Rickie Polanco MD PCP: Minerva Vergara MD Status: DEP ER ED Disposition - Plan for ED Patient: Disposition: Home or Assisted Living [facility] Complaint: Lower Extremity Injury Instructions: ED Leg [...] problems, contact your doctor. Call [facility] ([phone]) or report to the closest Emergency Room. Call 911 if necessary. 04/10 0835 <Electronically signed by Rickie Polanco MD> Date Rickie Polanco MD Cosigner Signature (If Indicated): Date CC: Minerva Vergara MD 10-Apr-2015 Emergency Department Summary Result: Comments: See Note; NOTES: [facility] Medical Records Department [address] [place] [address] Emergency Department Summary MR#: [id number] Acct: [id number] Name: IRIS VALENCIA Rep #: [id number] : 1940 75 From: Ellen iGlman MD PCP: Minerva Vergara MD Status: DEP [...] acute. Ellen Gilman MD T: NTS JOB: [id number] 04/05/15 0836 <Electronically signed by Ellen Gilman MD> Date Ellen Gilman MD 04/10/15 0835 <Electronically signed by Natanael Polanco MD> Cosigner Signature (If Indicated): Date Rickie Polanco MD CC: Minerva Vergara MD Date Dictated: 04/03/151454 Date Transcribed: 04/03/151454 Game Agent: Signed 04-Apr-2015 12 Lead Electrocardiogram Result: Comments: See Note; NOTES: [facility] Cardiovascular Services [address] [place] [address] 12 Lead EKG 04/03/151350 MR#: [id number] Acct: [id number] Name: IGGY ARRIAGA Rep #: [id number] : 1940 75 From: Gurdeep Huang MD [...] ECG Confirmed by REINA TIRADO, GURDEEP ([id number]), acquisitions editor CAROLEE MARIEE ([id number]) on 04/04/2015 10:27:52 AM Referred By: VALENTINA Confirmed By:GURDEEP HUANG MD 04/04/15 1027 Date Gurdeep Huang MD CC: Minerva Vergara MD Date Dictated: 04/03/151350 Date Transcribed: 04/03/151350 Game Agent: Signed 03-Apr-2015 Femur 2 Views Result: Comments: See Note; NOTES: [facility] Services [address] [place] [address] Radiology Report MR#: [id number] Acct: [id number] Name: IRIS ARRIAGA Rep #: [id number] : 1940 F 75 From: Ed Fink MD PCP: Minerva Vergara MD Status: REG ER Study: Femur 2 Views Date of Exam: 04/03/15 Exam# [id number] Ordering Dr: Rickie Polanco MD STUDY: X- [...] Ed Fink MD at 12:59 EDT Tel [phone], Service support [phone], RAD/ Femur 2 Views IMPRESSION: No acute abnormality is seen. Electronically Signed: Ed Fink MD at 12:59 EDT Tel [phone], Service support [phone], CC: Minerva Vergara MD; Rickie Polanco MD Game Agent: Signed 03-Apr-2015 Chest PA and Lateral Result: Comments: See Note; NOTES: [facility] Services [address] [place] [address] Radiology Report MR#: [id number] Acct: [id number] Name: IRIS ARRIAGA Rep #: [id number] : 1940 F 75 From: Ed Fink MD PCP: Minerva Vergara MD Status: REG ER Study: Chest PA and Lateral Date of Exam: 04/03/15 Exam# [id number] Ordering Dr: Ellen Gilman MD STUD Y: X-RAY CHEST REASON FOR EXAM: Female, 75 years old. Chest pain and chest tightness. TECHNIQUE: AP and lateral views of the chest. COMPARISON: Comparison is made with prior examination dated [facility] 2014. FINDINGS: There is blunting of the [...] Ed Fink MD at 13:05 EDT Tel [phone], Service support [phone], Fax RAD/Chest PA and Lateral IMPRESSION: Mild degree of linear scarring at the lung bases and blunting of both costophrenic angles. Electronically Signed: Ed ledezma MD at 13:05 EDT Tel [phone], Service support [phone], CC: Ellen Gilman MD; Minerva Vergara MD Game Agent: Signed 27-Mar-2015 Abd Inc Decub and/or Erect Result: Comments: See Note; NOTES: [facility] Services [address] [place] [address] Radiology Report MR#: [id number] Acct: [id number] Name: IRIS ARRIAGA Rep #: [id number] : 1940 F 75 From: Tylor Guzman DO PCP: Minerva Vergara MD Status: REG CLI Study: Abd Inc Decub and/or Erect Date of Exam: 03/27/15 Exam# [id number] Ordering Dr: Ida Quiñonez DO STUDY: X- [...] Guzman DO at 18:34 EDT Te l [phone], Service support [phone], 0093 RAD/Abd Inc Decub and/or Erect IMPRESSION: No acute abdominal pathology is noted. Electronically Signed: Tylor Guzman DO at 18:34 EDT Tel [phone], Service support [phone], CC: Minerva Vergara MD; Ida Quiñonez DO Game Agent: Signed 20-Mar-2015 PT Discharge Summary Result: Comments: See Note; NOTES: [facility] Physical Therapy Health[address] [place] [address] Fax REHABILITATION SERVICES DISCHARGE SUMMARY MR#: [id number] Acct: [id number] Name: IRIS ARRIAGA Rep #: [id number] : 1940 75 From: Kelvin Newman Referring [...] program. Kelvin Newman, PT T: NTS JOB: [id number] <Electronically signed by Kelvin Newman > 03/20/15 0648 CC: Signed 25-Jan-2015 Chest PA and Lateral Result: Comments: See Note; NOTES: [facility] Imaging Services [address] [place] [address] Radiology Report MR#: [id number] Acct: [id number] Name: IRIS ARRIAGA Rep #: [id number] : 1940 F 75 From: Apolinar Ansari DO PCP: Minerva Vergara MD Status: REG CLI Study: Chest PA and Lateral Date of Exam: 01/25/15 Exam# [id number] Ordering Dr: Gurdeep Huang MD STUD Y: [...] at 5:42 EDT Tel , Service support [phone], RAD/Chest PA and Lateral IMPRESSION: Very minimal left basilar atel ectasis. Otherwise, no acute process. Electronically Signed: Apolinar DO Elan at 5:42 EDT Tel , Service support [phone], CC: Minerva Vergara MD; Gurdeep Huang MD Game Agent: Signed 24-Jan-2015 Pulmonary Function Report Comp Result: Comments: See Note; NOTES: [facility] Pulmonary Services/Neurology [address] [place] [address] Pulmonary Function Test (Comp) MR#: [id number] Acct: [id number] Name: TANISHA REDIRIS Caitlin Rep #: [id number] : 1940 75 From: Jeremie Schultz MD [...] MD T: [facility] JOB: [id number] SPIROMETRY Ref ULN/LLN Pre Pre Post Post [...] MD Date Dictated: 01/19/151645 Date Transcribed: 01/19/151645 Game Agent: Signed 19-Jan-2015 Inital Evaluation - PT Result: Comments: See Note; NOTES: [facility] Physical Therapy [facility] [facility] [place] [address] Fax REHABILITATION SERVICES INITIAL EVALUATION MR#: [id number] Acct: [id number] Name: IRIS ARRIAGA Rep #: [id number] : 1940 75 From: Kelvin Newman Referring [...] Physicians Signature Date 10-Jan-2015 ELECTROCARDIOGRAM, COMPLETE (ECG) (35155) Result: [MEASUREMENTS ANALYSIS] Date of Test: 08/09/2015 10:29:14; Heart Rate: 78; W[place] Interval: 230; QRS: 114; QT Interval: 438; Corrected QT Interval (QTc): 469; P [place]: 69; QRS [place]: -7; T [place] : 22; Blood Pressure: 140/90 [ECG DIAGNOSTIC STATEMENTS] Date of Test: 08/09/2015 10:29:14; Summary: Sinus Rhythm -First degree A-V block -Frequent pvcs - ventricular bigeminy [place] = 230- Nonspecific T-abnormality. ABNORMAL [MEASUREMENTS ANALYSIS] Date of Test: 08/09/2015 10:29:10; Heart Rate: 78; [place] Interval: 230; QRS: 114; QT Interval: 438; Corrected QT Interval (QTc): 469; P [place]: 69; QRS [address] [place]: -7; T [place]: 22; Blood Pressure: 140/90 [ECG DIAGNOSTIC STATEMENTS] Date of Test: 08/09/2015 10:29:10; Summary: Sinus Rhythm -First degree A-V block -Frequent pvcs -ventricular bigeminy [place] = 230- Nonspecific T- abnormality. ABNORMAL 05-Jan-2015 PT Discharge Summary Result: Comments: See Note; NOTES: [facility] Therapy [facility] [place] [address] Fax REHABILITATION SERVICES DISCHARGE SUMMARY MR#: [id number] Acct: [id number] Name: IRIS ARRIAGA Rep #: [id number] : 1940 74 From: Kelvin Newman Referring [...] program. Kelvin Newman, PT T: NTS JOB: [id number] <Electronically signed by Kelvin Newman > 01/05/15 0931 CC: Signed 24-Nov-2014 Inital Evaluation - PT Result: Comments: See Note; NOTES: [facility] Physical Therapy [facility] [place] [address] Fax REHABILITATION SERVICES INITIAL EVALUATION MR#: [id number] Acct: [id number] Name: IRIS ARRIAGA Rep #: [id number] : 1940 74 From: Kelvin Newman Referring [...] is sleepin g well. She is a [employer] member here at [employer], but has not worked out here much [...] heat. Kelvin Newman, PT T: LORI JOB: [id number] <Electronically signed by Kelvin Newman > 11/24/14 0940 CC: Signed For [facility] only, by signing this I certify the plan of care. Physicians Signature Date 04-Nov-2014 Abdomen Single View Result: Comments: See Note; NOTES: [facility] Imaging Services [address] [place] [address] Radiology Report MR#: [id number] Acct: [id number] Name: IRIS ARRIAGA Rep #: [id number] : 1940 F 74 From: Ed Fink MD PCP: Minerva Vergara MD Status: REG CLI Study: Abdomen Single View Date of Exam: 11/04/14 Exam# [id number] Ordering Dr: Minerva Vergara MD STUDY : [...] Ed Fink MD at 14:10 EDT Tel [phone], Service support [phone], Fax RAD/Abdomen Single View IMPRESSION: Moderate amount of fecal material is seen throughout the colon. Electronically Signed: Ed Fink MD at 14: 10 EDT Tel [phone], Service support [phone], CC: Minerva Vergara MD Game Agent: Signed 04-Nov-2014 Shoulder min 2 Views Result: Comments: See Note; NOTES: [facility] Imaging Services [address] [place] [address] Radiology Report MR#: [id number] Acct: [id number] Name: IRIS ARRIAGA Rep #: [id number] : 1940 F 74 From: Ed Fink MD PCP: Minerva Vergara MD Status: REG CLI Study: Shoulder min 2 Views Date of Exam: 11/04/14 Exam# [id number] Ordering Dr: Minerva Vergara MD STUD Y: [...] Ed Fink MD at 14:11 EDT Tel [phone], Service support [phone], CC: Minerva Vergara MD Game Agent: Signed 21-Oct-2014 Echocardiogram Complete Result: Comments: See Note; NOTES: [facility] Cardiovascular Services [address] [place] [address] Echo Complete 10/19/14 1314 MR#: [id number] Acct: [id number] Name: CATHLEEN ARRIAGA Rep #: [id number] : 1940 74 From: Gurdeep Huang MD [...] Date Dictated: 10/19/14 1314 Date Transcribed: 10/19/141740 Game Agent: Signed 23-Sep-2014 12 Lead Electrocardiogram Result: Comments: See Note; NOTES: [facility] Cardiovascular Services [address] [place] [address] 12 Lead EKG 09/22/14 1440 MR#: [id number] Acct: [id number] Name: JARON ARRIAGA Rep #: [id number] : 1940 74 From: Peewee Cotto MD [...] Abnormal ECG Confirmed by PEEWEE COTTO ([id number]), acquisitions editor CAROLEE MARIEE ([id number]) on 09/23/2014 2: 44:4 7 PM Referred By: TRAV Confirmed By:PEEWEE COTTO 09/23/14 1444 Date Peewee Cotto MD CC: Minerva Vergara MD Date Dictated: 09/22/14 1440 Date Transcribed: 09/22/14 144 Game Agent: Signed 22-Sep-2014 Discharge Instruction Result: Comments: See Note; NOTES: [facility] Medical Records Department [address] [place] [address] Discharge Instruction 09/22/14 1616 MR#: [id number] Acct: [id number] Name: IRIS ARRIAGA Rep #: [id number] : 1940 74 From: Kermit Verduzco MD PCP: Minerva Vergara MD Status: [facility] ER ED Disposition - Plan for ED [...] Department Summary Result: Comments: See Note; NOTES: [facility] Medical Records Department [address] [place] [address] Emergency Department Summary MR#: [id number] Acct: [id number] Name: IRIS ARRIAGA Rep #: [id number] : 1940 74 From: Kermit Verduzco MD PCP: Minerva Vergara MD Status: [facility] ER DATE OF SERVICE: 09/22/2014 CHIEF COMPLAINT: [...] stood up quickly and went over to health therapist, 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 She [...] Discharge. Kermit Verduzco MD T: NTS JOB: [id number] 09/22/14 0987 <Electronically signed by Kermit Verduzco MD> Date Kermit Verduzco MD CC: Minerva Vergara MD Date Dictated: 09/22/141614 Date Transcribed: 09/22/141614 Game Agent: Signed 22-Sep-2014 Chest PA and Lateral Result: Comments: See Note; NOTES: [facility] Imaging Services [address] [facility] [place] [address] Radiology Report MR#: [id number] Acct: [id number] Name: IRIS ARRIAGA Rep #: [id number] : 1940 F 74 From: Ed Fink MD PCP: Minerva Vergara MD Status: REG ER Study: Chest PA and Lateral Date of Exam: 09/22/14 Exam# [id number] Ordering Dr: Kermit Verduzco MD ROWAN DY: [...] CC: Minerva Vergara MD; Kermit Verduzco MD Game Agent: Signed Family History Unknown Family Member Name [...] Status: 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 Religion Status: Active Exercise History Comments: Exercises occasionally [...] kg/m2 Body Surface Area Calculated 1.97 m2 43-Zgp-477855:15 Comments: sitting- spo2 on 2L- 89% P66 [...] Panel, Basic Comments: PATIENT NOT FASTINGPERFORMED BY: [facility]The [facility] FallsQujjoo0191 [facility] [id number] (14666) Calcium 9.4 mg/dL (Normal) Range: 8.7-10.3 Carbon [...] 8-27 Glucose 72 mg/dL (Normal) Range: 65-99 51-Fdx-36203:13 Pathology Report Comments: PERFORMED BY: CYCIN [facility] Whnp7083 [facility] [id number] BY: KWCYT [facility] Cyto Pbjqv67552 [facility] [id number] Clinical Information: [id number] See MATER Comments: Material submitted: .ABDOMINAL BIOPSYClinical [...] ENTIRELY SUBMITTEDIN ONE CASSETTE.BCO/SMIPathologist provided ICD-10:D21.4, L82.1CPT .179096 18-Okc-241729:35 Comprehensive Metabolic Profil Comments: [facility] [address] [place], [place], [address] GAP 8 (Normal) Range: 5-15 CO2 33.0 mmol/L (Abnormal) Range: 21.0-32.0 CL 95 mmol/L (Abnormal) Range: 98-107 K 3.6 mmol/L (Normal) Range: 3.5-5.1 NA 136 mmol/L (Normal) Range: 136-145 T BILI 0.70 mg/dL (Normal) Range: 0.20-1.00 ALT 23 U/L (Normal) Range: 13-56 Comments: Please note revised ALT reference range wdavloowv78/28/2018. ALK P 79 U/L (Normal) Range: 45-117 [...] Comments: Please note revised GLUCOSE reference range bcsueqioz25/02/2018. 80-Mtg-103879:35 Phosphorus Comments: [facility] [address] [place], [place], [address] PHOS 4.0 mg/dL (Normal) Range: 2.5-4.9 26-Sxe-345382:35 Uric Acid Comments: [facility] [address] [place], [place], [address] URIC 10.9 mg/dL (Abnormal) Range: 2.6-6.0 Comments: The drugs N-Acetylcysteine and Metamizole may falselydepress this assay. 38-Wve-751343:19 Metabolic Panel, Comments: fax a copy to Dr. Tucker [phone] Huang [phone]; A courtesy copy of this report has been sent [phone], .PATIENT NOT FASTINGPERFORMED BY: [facility] sb2107 Jyotsna Clements ([address]) x [place] [id number] Information: HARD DRAW/BUTTERFLY ALT (SGPT) 19 [iU]/L [...] Glucose, Serum 97 mg/dL (Normal) Range: 65-99 82-Tpk-749408:56 Basic Metabolic Profile (BMP) Comments: Order Date: 08/07/17Order Info: 0667-1 - BMPComments: now stat and prnWMer[facility] [address] [place], [place], [address] GAP 8 (Normal) Range: 5-15 CO2 29.0 [...] 7-18 GLU 80 mg/dL (Normal) Range: 70-110 03-Fam-776355:23 CREATININE FINGERSTICK Comments: [facility] [address] [place], [place] [address] CREATININE WB 1.3 mg/dL (Abnormal) Range: 0.55-1.02 11-Sep-20171:20 CBC WITH MANUAL DIFF Comments: PATIENT NOT FASTINGPERFORMED BY: [facility] Rrxhix7638 [facility] [id number] Information: NURSE DRAW (01014) Immature Grans (Abs) 0.0 {x10E3/uL} (Normal) Range: [...] Panel, Comprehensive Comments: PATIENT NOT FASTINGPERFORMED BY: [facility]CoThe [facility] Tinton FallsGefayc6811 [facility] [id number] (19534) ALT (SGPT) 11 [iU]/L (Normal) Range: 0-32 [...] 101 mg/dL (Abnormal) Range: 65-99 11-Sep-20171:20 URINALYSIS (52380) Comments: PATIENT NOT FASTINGPERFORMED BY: [facility]CoThe [facility] T[facility] FallsVfgwtp3937 [facility] [id number] Microscopic Examination MICNIP (Normal) Comments: Microscopic not indicated and not performed. Nitrite, Urine Negative (Normal) Urobilinogen,Semi-Qn 1.0 mg/dL (Normal) Range: 0.2-1.0 Bilirubin Negative (Normal) Occult Blood Negative (Normal) Ketones Negative (Normal) Glucose Negative (Normal) Protein Trace (Normal) WBC Esterase Negative (Normal) Appearance Clear (Normal) Urine-Color Yellow (Normal) pH 7.0 (Normal) Range: 5.0-7.5 Specific Bogard 1.018 (Normal) Range: 1.005-1.030 1-Jqu-397392:34 Basic Metabolic Profile (BMP) Comments: [facility] [address] [place], [place], [address] GAP 10 (Normal) Range: 5-15 CO2 26.0 [...] 7-18 GLU 92 mg/dL (Normal) Range: 70-110 42-Eqg-555280:03 Basic Metabolic Profile (BMP) Comments: Order Date: 05/01/17Order Info: 0667-1 - *BMPComments: Reason:[facility] [address] [place], [address] GAP 5 (Normal) Range: 5-15 CO2 28.0 [...] 7-18 GLU 64 mg/dL (Abnormal) Range: 70-110 47-Yyh-596656:16 Renal function Panel (00562) Comments: PATIENT NOT FASTINGPERFORMED BY: [facility]CoThe [facility] T[facility] FallsNsujoq8879 [facility] [id number] Albumin, Serum 4.3 g/dL (Normal) Range: 3.5-4.8 [...] Glucose, Serum 91 mg/dL (Normal) Range: 65-99 63-Kzu-80378:15 Urinalysis, Complete Comments: Order Date: 03/31/17How was Urine Obtained? LABOR EXPEDITER TO [facility] [address] [place], [address] MUCUS, URINE 0 SEEN {/hpf} [...] CLARITY Sl. Cloudy (Normal) COLOR Yellow (Normal) 49-Cyr-37845:45 Lactic Acid Comments: Yes/No query for Sepsis Lactate Rule [facility] [address] [place], [address] LACTIC ACID 0.8 mmol/L (Normal) Range: 0.4-2.0 :39 BNP,B-Type NATRIURETIC PEPTIDE Comments: [facility] [address] [facility] [place], [address] B-TYPE HUMBLE PEP 1017.0 pg/mL (Abnormal) Range: 0-100 66-Xlo-16378:39 CBC W/Diff, Automated Comments: [facility] [address] [place], [address] ANISO 1+ (Normal) Absolute Lymph [...] 4.2-5.4 WBC 13.6 K/mm3 (Abnormal) Range: 4.4-11.0 66-Rem-74562:39 Comprehensive Metabolic Profil Comments: 'TROP' Serial specimen #1, #2, #3, or #4: 1WMercy [facility] Hospital [address] [place], [address] GAP 8 (Normal) Range: 5-15 [...] Serial specimen #1, #2, #3, or #4: 1[facility] [address] [place], [place], [address] TROPONIN-I 0.06 ng/mL (Normal) Comments: TROPONIN-I EXPECTED VALUES <0.05 NEGATIVE 0.06 - 0.59 AT RISK OF MD > OR = 0.60 SUGGEST MD :03 Bedside Glucose Comments: [facility] of [address]rh[address] [place] [address] BEDSIDE GLU 146 mg/dL (Abnormal) Range: 70-110 Comments: MANAGEMENT OF PATIENT CARE PER NURSING PROTOCOL 18-Unh-827429:25 Vitamin D,25 Hydroxy Comments: Order Date: 01/17/17Order Info: 0788-1 - *Hepatic Function Panel3 ORDERING DOCTORS:REINA REID ORDERED: LIVER LIPIDDR.CAITLIN ORDERD: BMPMARY CIESA ORDERED: TSH, VITD, M1ZYodmhav [facility] [address] [place], [address] Vitamin D 25-OH 35.2 ng/mL (Normal) Comments: Vitamin D 25(OH) Status Range Deficiency <20 ng/mL (50nmol/L) Insuffciency 20 - 30 ng/mL (50 - 75 nmol/L) Sufficiency 30 - 100 ng/mL (75 - 250 nmol/L) Toxicity >100 ng/mL (>250 nmol/L) 62-Oak-155472:20 Basic Metabolic Profile (BMP) Comments: Order Date: 01/17/17Order Info: 0788-1 - *Hepatic Function Panel3 ORDERING DOCTORS:REINA REID ORDERED: LIVER LIPIDDR.CAITLIN ORDERD: BMPMARY CIESA ORDERED: TSH, VITD, V3WBzjsy Date: 01/17/17Order Info: 55276-3 - *Lipid Profile CC PCPComments: 12 hours fasting, may have water.[facility] [address] [place], [address] GAP 6 (Normal) Range: 5-15 CO2 31.0 [...] 7-18 GLU 109 mg/dL (Normal) Range: 70-110 29-Aeq-722488:20 Lipid Profile Comments: Order Date: 01/17/17Order Info: 0788- 1 - *Hepatic Function Panel3 ORDERING DOCTORS:REINA REID ORDERED: LIVER LIPIDDR.NOVY ORDERD: BMPMARY CIESA ORDERED: TSH, VITD, U6MUdmvi Date: 01/17/17 Order Info: 78994-3 - *Lipid Profile CC PCPComments: 12 hours fasting, may have water.[facility] [address] [place], [place], [address] VLDL 20 mg/dL (Normal) Range: 5-40 LDL [...] 200-240 mg/dL Borderline >240 mg/dL High Risk 50-Otp-729846:20 Liver Profile Comments: Order Date: 01/17/17Order Info: 0788- 1 - *Hepatic Function Panel3 ORDERING DOCTORS:REINA REID ORDERED: LIVER LIPIDDR.NOVY ORDERD: BMPMARY CIESA ORDERED: TSH, VITD, K0BWqgyl Date: 01/17/17 Order Info: 25084-6 - *Lipid Profile CC PCPComments: 12 hours fasting, may have water.[facility] [address] [place], [place], [address] D BILI 0.24 mg/dL (Normal) Range: 0.00-0.30 T BILI 0.60 mg/dL (Normal) Range: 0.20-1.00 ALT 27 U/L (Normal) Range: 12-78 ALK P 84 U/L (Normal) Range: 45-117 AST 27 U/L (Normal) Range: 15-37 GLOB 3.7 g/dL (Abnormal) Range: 2.3-3.5 ALB 3.8 g/dL (Normal) Range: 3.4-5.0 T PROT 7.5 g/dL (Normal) Range: 6.4-8.2 51-Jgd-079821:20 T4 Free Direct Comments: Order Date: 01/17/17Order Info: 0788- 1 - *Hepatic Function Panel3 ORDERING DOCTORS:REINA REID ORDERED: LIVER LIPIDDR.NOVY ORDERD: BMPYUDYY CIGLENYSA ORDERED: TSH, VITD, C4NBycsw Date: 01/17/17 Order Info: 69197-4 - *Lipid Profile CC PCPComments: 12 hours fasting, may have water.[facility] [address] [place], [place], [address] T4 FREE DIRECT 1.51 ng/dL (Abnormal) Range: 0.76-1.46 00-Xbd-122608:20 Thyroid Stim Hormone (TSH) Comments: Order Date: 01/17/17Order Info: 0788-1 - *Hepatic Function Panel3 ORDERING DOCTORS:REINA REID ORDERED: LIVER LIPIDDR.NOVY ORDERD: BMPMARY CIESA ORDERED: TSH, VITD, Z1IXdpkn Date: 01/17/17Order Info: 27554-5 - *Lipid Profile CC PCPComments: 12 hours fasting, may have water.[facility] [address] [place], [address] TSH 3.02 {uIU/mL} (Normal) Range: 0.358-3.74 37-Spd-968402:00 Pathology Report Comments: PERFORMED BY: [facility] Kvyzd20090 [facility] [id number] BY: [facility] Dermatopathology [address] [facility] [address]AK[facility] [id number] Information: [id number] See MATER Comments: Material submitted: .SHAVE BIOPSY OF RIGHT ABDOMENClinician provided ICD-10:L82.1Clinical history: . Note (Normal) Diagnosis:BENIGN VERRUCAL KERATOSIS.02/08/2017Electronically signed: .Gege Reece MD, DermatopathologistGross description: .SUBMITTED IN FORMALIN LABELED IRIS ARRIAGA AND IS DESIGNATEDRIGHT ABDOMEN IS A FRAGMENT OF FERGUSON TISSUE THAT MEASURES 1.4 X .8X .3 CM. THE MARGINS ARE INKED BLUE. THE SPECIMEN IS TRISECTEDAND SUBMITTED IN TOTO.XJW/BXSPathologist provided ICD-10:D23.5CPT .753430 86-Upe-923774:12 Basic Metabolic Profile (BMP) Comments: Order Date: 01/15/17Order Info: 0667-1 - *BMPComments: Reason:[facility] [address] [place], [address] GAP 5 (Normal) Range: 5-15 CO2 32.0 [...] 7-18 GLU 82 mg/dL (Normal) Range: 70-110 1-Hiv-592685:04 Basic Metabolic Profile (BMP) Comments: Order Date: 01/08/17Order Info: 0667-1 - *BMPComments: Reason: BMP: [facility] week[facility] [address] [place], [address] GAP 11 (Normal) Range: 5-15 CO2 28.0 [...] <126 mg/dLsuggests IMPAIRED HOMEOSTASIS per A.D.A. criteria. 93-Zbo-500793:28 Lipid Profile Comments: Order Date: 06/18/16Order Info: 0788- 1 - *Hepatic Function PanelLIVER AND LIPID WERE ORDERED BY INE LEVEL ORDERED BY Date: 06/18/16Order Info: 44818-3 - *Lipid Profi le CC PCPComments: 12 hours fasting, may have water.[facility] [address] [place], [place], [address] VLDL 14 mg/dL (Normal) Range: 5-40 LDL [...] 200-240 mg/dL Borderline >240 mg/dL High Risk 46-Ovg-171278:28 Liver Profile Comments: Order Date: 06/18/16Order Info: 0788- 1 - *Hepatic Function PanelLIVER AND LIPID WERE ORDERED BY ATININE LEVEL ORDERED BY Date: 06/18/16Order Info: 05529-3 - *Lipid Profi le CC PCPComments: 12 hours fasting, may have water.[facility] [address] [place], [place], [address] D BILI 0.48 mg/dL (Abnormal) Range: 0.00-0.30 T BILI 1.10 mg/dL (Abnormal) Range: 0.20-1.00 ALT 62 U/L (Normal) Range: 12-78 ALK P 94 U/L (Normal) Range: 45-117 AST 59 U/L (Abnormal) Range: 15-37 GLOB 3.3 g/dL (Normal) Range: 2.3-3.5 ALB 3.7 g/dL (Normal) Range: 3.4-5.0 T PROT 7.0 g/dL (Normal) Range: 6.4-8.2 97-Nqg-761354:28 Serum Creatinine AND GFR Comments: Order Date: 06/18/16Order Info: 0788-1 - *Hepatic Function PanelLIVER AND LIPID WERE ORDERED BY ATININE LEVEL ORDERED BY Date: 06/18/16Order Info: 55706-5 - *Lipid i ashley SOLOMON PCPComments: 12 hours fasting, may have water.[facility] [address] [place], [place], [address] EST GFR - AA 52 mL/min (Abnormal) Comments: GFR Calc EST GFR 43 mL/min (Abnormal) Comments: Non- GFR Calc CREAT,SERUM 1.29 mg/dL (Abnormal) Range: 0.55-1.02 Comments: The validity of the calculated GFR AND GFRAA in patients over70 years has not been determined. Clinical correlation isessential. 21-Ioj-345968:36 Anticardiolipin IgA,G,M Comments: [facility] (refer to report [...] Positive: >20 - 80 High Positive: >80 89-Cms-756942:36 Comprehensive Metabolic Profil Comments: [facility] [address] [place], [place], [address] GAP 4 (Abnormal) Range: 5-15 CO2 26.0 [...] 7-18 GLU 103 mg/dL (Normal) Range: 70-110 70-Bhc-247041:36 Fact V Leiden Mutation Comments: [facility] (refer to report for specific site)refer to report for address and phone number COMMENT (Normal) Comments: Comment:Genetic counselors are available for health care providersto discuss results at [phone] ([phone]).Methodology:DNA analysis of the Factor V gene was performed byallele-specific PCR. The d iagnostic sensitivity andspecificity is >99% for both. Molecular-based testing ishighly accurate, but as in any laboratory test, diagnosticerrors may occur. All test results must be combined withclin ical information for the most accurate interpretation.This test was developed and its performance characteristicsdetermined by [facility]. It has not been cleared or approvedby the Food and Drug Administra tion.References:Nicholas Armijo (1995). Clin Lab Med 16:169-186.Raul Cano, PhD, Cinthya May, PhD, Wilbur Clemente, PhD, Marly Wen MTammiSTammi, PhD, Lilia Way, PhD, Kaia Reynaga, PhD, Richard Juarez PhD, [facility] FACTOR V LEIDEN (Normal) Comments: Result: Negative [...] in the workup for venous thrombosis include [id number] mutation in the factor II (prothrombin) gene,protein S and C deficiency, and antithrombin deficiencies.Anticardiolipin antibody and lupus 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 an alysismay be appropriate for certain patients, as well ashomocysteine levels.Contact your local [facility] for information on how to orderadditional testing if desired. 07-Xrw-107717:36 Factor II, DNA Analysis Comments: [facility] (refer to report for specific site)refer to report for address and phone number COMMENT (Normal) Comments: Additional Information:Genetic Counselors are available for health care providersto discuss results at [phone] ([phone]).Methodology:DNA analysis of the Factor II gene was [...] Drug Administration.Poort SR, et al. Blood. 1996; 88:5851-0407.Robert GUTIÉRREZ. Circulation. 2004; 110:e15-e18.Stanislav I, et al. Arterioscler Thromb Vasc Biol. 1999;19:700-703.Raul Cano, Ph D, Cinthya May, PhD, Wilbur Clemente, PhD, Marly Wen M.S., PhD, Lilia Way, PhD, Kaia Reynaga, PhD, Richard Juarez, PhD, [facility] COMMENT (Normal) Comments: Comment:A point mutation (W02438T) in the factor II (prothrombin)gene is the [...] individual mutations. This assay detects onlythe prothrombin K10424M mutation and does not measuregenetic abnormalities elsewhere in the genome. Otherthrombotic r isk factors may be pursued through systematicclinical laboratory analysis. These factors include bryS869V (Leiden) mutation in the Factor V gene, plasmahomocysteine levels, as well as testing for defici encies ofantithrombin III, protein C and protein S. FACTOR II,DNA (Normal) Comments: Factor II, DNA Analysis NEGATIVE No mutation identified. 31-Gcq-705981:36 Partial Thromboplast Time Comments: [facility] [address] [place], [place], [address] PTT 28.3 s (Normal) Range: 24.1-36.2 20-Igi-445799:36 Prothrombin Time w/INR Comments: [facility] [address] [place], [place], [address] INR 1.3 (Normal) PROTIME 15.5 s (Abnormal) Range: 11.7-14.9 :39 CBC W/Diff, Automated Comments: Order Date: 12/02/16Order Info: 0184-1 - CBCDComments: coipy to Dr. jessie armendariz statOrder Date: 12/02/16Order Info: 0184-1 - CBCDComments: coipy to Dr. jessie armendariz statOrder Date: 12/02/16O rder Info: 0788-1 - LIVERComments: to stat copy to Dr. natalie armendarizMain [facility] [address] [place], [address] Absolute Lymph 1.13 {X10_3/ul} (Normal) Range: 0.83-4.51 [...] 4.2-5.4 WBC 8.8 K/mm3 (Normal) Range: 4.4-11.0 36-Dmk-47274:39 Liver Profile Comments: Order Date: 12/02/16Order Info: 0788-1 - LIVEROrder Date: 12/02/16Order Info: 0788-1 - LIVERComments: to stat copy to Dr. estrada [facility] [address] [place], [place], [address] D BILI 0.28 mg/dL (Normal) Range: 0.00-0.30 T BILI 0.80 mg/dL (Normal) Range: 0.20-1.00 ALT 33 U/L (Normal) Range: 12-78 ALK P 71 U/L (Normal) Range: 45-117 AST 30 U/L (Normal) Range: 15-37 GLOB 2.9 g/dL (Normal) Range: 2.3-3.5 ALB 3.8 g/dL (Normal) Range: 3.4-5.0 T PROT 6.7 g/dL (Normal) Range: 6.4-8.2 92-Bgi-419029:38 URINE DAR CULTURE (NOREEN Comments: PATIENT NOT FASTINGPERFORMED BY: [facility] Wmvndv6593 [facility] [id number] Information: SRC:UC COL COUNT) (62678) Antimicrobial MIHEAD (Normal) Comments: S = Susceptible; [...] Colonies/mL (Abnormal) Urine Final report Culture,Comprehensive (Abnormal) 43-Rmi-02666:33 CBC W/Diff, Automated Comments: Order Date: 10/31/16Order Info: 0184-1 - CBCDOrder Info: 70909-8 - SEDOrder Date: 10/31/16Order Info: 0184-1 - CBCDOrder Info: 23283-9 - SEDOrder Date: 10/31/16Order Info: 3040-3 - LIPASEW [facility] [address] [place], [address] Absolute Lymph 1.10 {X10_3/ul} (Normal) Range: 0.83-4.51 [...] 4.2-5.4 WBC 11.1 K/mm3 (Abnormal) Range: 4.4-11.0 16-Ifm-05034:33 Comprehensive Metabolic Profil Comments: Order Date: 10/31/16Order Info: 0786-1 - CMPOrder Info: 1798-8 - AMYOrder Info: 3040-3 - LIPASEOrder Date: 10/31/16Order Info: 3040-3 - LIPASEComments: all [facility] [address] [place], [address] GAP 10 (Normal) Range: 5-15 CO2 26.0 [...] 7-18 GLU 86 mg/dL (Normal) Range: 70-110 22-Fjq-48995:33 Erythrocyte Sed Rate Comments: Order Date: 10/31/16Order Info: 0184-1 - CBCDOrder Info: [id number] - SEDOrder Date: 10/31/16Order Info: 0184-1 - CBCDOrder Info: 47838-0 - SEDOrder Date: 10/31/16Order Info: 3040-3 - LIPASEW [facility] [address] [place], [address] SED RATE 12 mm/h (Normal) Range: 0-30 :33 Lipase (24069) Comments: Order Date: 10/31/16Order Info: 0786- 1 - CMPOrder Info: 1798-8 - AMYOrder Info: 3040-3 - LIPASEOrder Date: 10/31/16Order Info: 3040-3 - LIPASEComments: all [facility] [address] [place], [address] LIPASE 216 U/L (Normal) Range: 73-393 :33 Amylase (02946) Comments: Order Date: 10/31/16Order Info: 0786- 1 - CMPOrder Info: 1798-8 - AMYOrder Info: 3040-3 - LIPASEOrder Date: 10/31/16Order Info: 3040-3 - LIPASEComments: all [facility] [address] [place], [address] QUENTIN 56 U/L (Normal) Range: 25-115 05-Ncf-34115:45 Urinalysis, Office (41571) UA - LEUKOCYTE ESTERASE Negative (Normal) UA - NITRITE Negative (Normal) URINE UROBILINGN NOREEN TIMED Normal mg/dL (Normal) UA - PROTEIN Negative mg/dL (Normal) UA - PH 6 (Abnormal) UA - BLOOD Non Hemolyzed Trace (Normal) UA - SPECIFIC GRAVITY 1.015 (Normal) UA - KETONES Negative mg/dL (Normal) UA - BILIRUBIN Negative (Normal) UA - GLUCOSE Negative (Normal) 19-Kcs-896676:00 Pathology Report Comments: PERFORMED BY: [facility] Cyto Zzfml45230 [facility] [id number] Information: [id number] See MATER Comments: Material submitted: .SHAVE BIOPSY [...] ARE 4 PIECES TOTAL./CORCOR/CORPathologist provided ICD-10:L82.1, B07.8CPT .652536 8-Ggb-841912:50 Basic Metabolic Profile (BMP) Comments: DR TUCKER IS ORDERING THE BMPOrder Date: 06/28/16OV Order #: [id number] Health [facility] Hospital [address] [place], [address] GAP 9 (Normal) Range: 5-15 CO2 28.0 [...] 7-18 GLU 89 mg/dL (Normal) Range: 70-110 6-Ibg-339028:50 Lipid Profile Comments: DR TUCKER IS ORDERING THE BMPOrder Date: 06/28/16OV Order #: [id number] Campus Medical Center [address] [place], [place], [address] VLDL 14 mg/dL (Normal) Range: 5-40 LDL [...] 200-240 mg/dL Borderline >240 mg/dL High Risk 1-Ulx-305342:50 Liver Profile Comments: DR TUCKER IS ORDERING THE BMPOrder Date: 06/28/16OV Order #: [id number] Campus Medical Center [address] [place], [address] D BILI 0.11 mg/dL (Normal) Range: 0.00-0.30 [...] ORDERING THE BMPOrder Date: 06/28/16 Order #: [id number] Campus Medical Center [address] [place], [place], [address] T4 THYROXIN 12.8 ug/dL (Normal) Range: 4.8-13.9 8-Not-296104:50 Thyroid Stim Hormone (TSH) Comments: DR TUCKER IS ORDERING THE BMPOrder Date: 06/28/16 Order #: [id number] Campus Medical Center [address] [place], [place], [address] TSH 2.26 {uIU/mL} (Normal) Range: 0.358-3.74 07-Uzd-157773:26 URINE DAR CULTURE-IDENTIFICATN Comments: PATIENT NOT FASTINGPERFORMED BY: [facility]CoThe [facility] FallsQkevfi5639 [facility] [id number] Information: SRC:ANDREW (28006) Result 1 ECV (Abnormal) Comments: Escherichia coli, [...] report Culture,Comprehensi (Abnormal) ve :38 Urinalysis, Office (77740) UA - LEUKOCYTE ESTERASE Negative (Normal) UA - NITRITE Negative (Normal) URINE UROBILINGN NOREEN TIMED Normal mg/dL (Normal) UA - PROTEIN Negative mg/dL (Normal) UA - PH 5 (Abnormal) UA - BLOOD Hemolyzed Trace (Normal) UA - SPECIFIC GRAVITY 1.010 (Normal) UA - KETONES Negative mg/dL (Normal) UA - BILIRUBIN Negative (Normal) UA - GLUCOSE Negative (Normal) 98-Yxq-031782:02 Comprehensive Metabolic Profil Comments: [facility] [address] [place], [address] GAP 8 (Normal) Range: 5-15 [...] 7-18 GLU 85 mg/dL (Normal) Range: 70-110 95-Viy-490642:02 T4 Total, Thyroxin Comments: [facility] [address] [place], [address] T4 THYROXIN 13.1 ug/dL (Normal) Range: 4.8-13.9 23-Gac-667754:02 Thyroid Stim Hormone (TSH) Comments: C[facility] [address] [place], [address] TSH 1.34 {uIU/mL} (Normal) Range: 0.358-3.74 :25 COLON BIOPSY (CHOOSE See Note (Normal) Comments: [facility] [address] [place], [address] SITE) Comments: Patient: IRIS ARRIAGA : 1940 (76/F) Acct Num: [id number] Phys: Clifford Gifford Unit Num: [id number] Loc: EN Specimen: [id number] Received: 01/30/16 - 50 Spec Type: COLON BX TISSUES TISSUES: GROSS DESCRIPTION Received is one container labeled with the patient name and designated mid ascending polyp. The specimen consists of two irregular fragments of light tansoft tissue that in aggregate measure 0.3 x 0.2 x 0.1 cm. The specimen is totally submitted in one cassette. / SJ:juan j 01/30/16 TC:5 CPT:63728 HEADER OPERATION: Colonoscopy PRE-OP DI AGNOSIS: Screening TISSUE SUBMITTED: Mid ascending polyp MICROSCOPIC DESCRIPTION Slides are reviewed. MICROSCOPIC DIAGNOSIS Mid ascending colon polyp, biopsy: Fragments of tubular adenoma. AM:juan j 01/31/16 Signed Abrahan [facility] 01/31/16 <signature on file> 32-Wfv-027243:12 Basic Metabolic Profile (BMP) Comments: ORDERED BMPDR.REINA ORDERED TSH T4 LIPID [facility] [address] [place], [address] GAP 6 (Normal) Range: 5-15 CO2 27.0 [...] 7-18 GLU 78 mg/dL (Normal) Range: 70-110 58-Bry-465012:12 Lipid Profile Comments: ORDERED BMPDR.MOODISPAW ORDERED TSH T4 LIPID [facility] [address] [place], [address] VLDL 15 mg/dL (Normal) Range: [...] 200-240 mg/dL Borderline >240 mg/dL High Risk 93-Mul-715886:12 Liver Profile Comments: ORDERED BMPDR.MOODISPAW ORDERED TSH T4 LIPID [facility] [address] [place], [address] D BILI 0.17 mg/dL (Normal) Range: 0.00-0.30 T BILI 0.50 mg/dL (Normal) Range: 0.20-1.00 ALT 37 U/L (Normal) Range: 12-78 ALK P 68 U/L (Normal) Range: 50-136 AST 26 U/L (Normal) Range: 15-37 GLOB 3.8 g/dL (Abnormal) Range: 2.3-3.5 ALB 3.5 g/dL (Normal) Range: 3.4-5.0 T PROT 7.3 g/dL (Normal) Range: 6.4-8.2 57-Ewe-728734:12 T4 Total, Thyroxin Comments: ORDERED BMPDR.DELIOJOCELINE ORDERED TSH T4 [facility] [address] [place], [place], [address] T4 THYROXIN 14.3 ug/dL (Abnormal) Range: 4.8-13.9 84-Crs-580543:12 Thyroid Stim Hormone (TSH) Comments: ORDERED BMPDR.DELIOISPAW ORDERED TSH T4 [facility] [address] [place], [place], [address] TSH 2.32 {uIU/mL} (Normal) Range: 0.358-3.74 40-Hvf-49807:37 Rapid Flu (96938 x 2) Influenza A Ag neg (Normal) 84-Fuh-058913:28 Metabolic Panel, Basic Comments: PATIENT NOT FASTINGPERFORMED BY: [facility] Ajnpiq1210 [facility] [id number] (24946) Calcium, Serum 8.7 mg/dL (Normal) Range: 8.7-10.3 [...] Glucose, Serum 70 mg/dL (Normal) Range: 65-99 70-Hwv-136189:28 CBC (Auto) (18753) Comments: PATIENT NOT FASTINGPERFORMED BY: LabCoThe [facility] T[facility] FallsBhyfma9479 [facility] [id number] Information: [id number] Platelets 224 {x10E3/uL} (Normal) Range: 150-379 RDW 14.8 % (Normal) Range: 12.3-15.4 MCHC 33.0 g/dL (Normal) Range: 31.5-35.7 MCH 31.9 pg (Normal) Range: 26.6-33.0 MCV 97 fL (Normal) Range: 79-97 Hematocrit 39.4 % (Normal) Range: 34.0-46.6 Hemoglobin 13.0 g/dL (Normal) Range: 11.1-15.9 RBC 4.08 {x10E6/uL} (Normal) Range: 3.77-5.28 WBC 8.1 {x10E3/uL} (Normal) Range: 3.4-10.8 49-Pya-019504:51 URINE DAR CULTURE-IDENTIFICATN Comments: PATIENT NOT FASTINGPERFORMED BY: LabCoThe [facility] Hospital [facility] Tinton FallsTdtdsx0100 [facility] [id number] Information: [id number] (75564) Result 1 MUG (Normal) Comments: Mixed urogenital flora2,000 Colonies/mL Urine Culture,Comprehensive Final report (Normal) 38-Tru-51840:28 Magnesium Comments: [facility] [address] [place], [address] MG 2.1 mg/dL (Normal) Range: 1.8-2.4 15-Fdr-71320:28 Potassium Comments: [facility] [address] [place], [address] K 5.0 mmol/L (Normal) Range: 3.5-5.1 18-Mlv-019004:12 LIPASE (64142) Comments: Test(s) Potassium, Serum called to Gina Vergara on 11/21/2015 at 03:54 ESTPATIENT NOT FASTINGPERFORMED BY: [facility]6370 [facility] [id number] Lipase, Serum 61 U/L (Abnormal) Range: 0-59 13-Zwo-652010:12 AMYLASE (60893) Comments: Test(s) Potassium, Serum called to Gina BollingoBlogunm [facility] on 11/21/2015 at 03:54 ESTPATIENT NOT FASTINGPERFORMED BY: MICMALIThe Rehabilitation Hospital of Tinton FallsYbimdj8141 [facility] [id number] Amylase, Serum 84 U/L (Normal) Range: 31-124 26-Mtc-159573:20 Urinalysis, Office (80861) UA - LEUKOCYTE ESTERASE Trace (Normal) UA - NITRITE Negative (Normal) URINE UROBILINGN NOREEN TIMED Normal mg/dL (Normal) UA - PROTEIN 100 mg/dL (Normal) UA - PH 6.0 (Normal) Comments: 5.5 UA - BLOOD Negative (Normal) UA - SPECIFIC GRAVITY 1.030 (Abnormal) UA - KETONES 15 mg/dL (Abnormal) UA - BILIRUBIN Moderate (Normal) UA - GLUCOSE Negative (Normal) 76-Mia-682483:12 Metabolic Panel, Basic Comments: Test(s) Potassium, Serum called to [facility] Deviceun[facility] on 11/21/2015 at 03:54 ESTPATIENT NOT FASTINGPERFORMED BY: MICMALIThe Rehabilitation Hospital of Tinton FallsGdcbfl4630 [facility] [id number] (47011) Calcium, Serum 8.9 mg/dL (Normal) Range: 8.7-10.3 [...] Comments: Specimen received hemolyzed. Clinical correlation indicated. 91-Gmc-134429:12 CBC WITH MANUAL DIFF Comments: Test(s) Potassium, Serum called to [employer] on 11/21/2015 at 03:54 ESTPATIENT NOT FASTINGPERFORMED BY: MISHA [facility] Fwullc1763 [facility] [id number] Information: [id number] (17347) Immature Grans (Abs) 0.0 {x10E3/uL} (Normal) Range: [...] 3.77-5.28 WBC 16.1 {x10E3/uL} (Abnormal) Range: 3.4-10.8 2-Vgx-338938:50 Urinalysis, Complete Comments: Order Date: 11/15/15How was Urine Obtained? LABOR EXPEDITER TO [facility] [address] [place], [address] HYALINE CAST 5-10 SEEN {/lpf} [...] (Normal) CLARITY Clear (Normal) COLOR Yellow (Normal) 0-Jkv-826175:00 Basic Metabolic Profile (BMP) Comments: [facility] [address] [place], [place], [address] GAP 6 (Normal) Range: 5-15 CO2 24.0 [...] 7-18 GLU 88 mg/dL (Normal) Range: 70-110 7-Gqw-071896:00 CBC W/Diff, Automated Comments: [facility] [address] [place], [address] SMEAR COMMENT SCANNED (Normal) Absolute [...] 4.2-5.4 WBC 16.9 K/mm3 (Abnormal) Range: 4.4-11.0 5-Wnq-717600:00 Lipase Comments: [facility] [address] [place], [address] LIPASE 446 U/L (Abnormal) Range: 73-393 6-Uxv-680704:00 Liver Profile Comments: [facility] [address] [place], [place], [address] D BILI 0.06 mg/dL (Normal) Range: 0.00-0.30 T BILI 0.40 mg/dL (Normal) Range: 0.20-1.00 ALT 94 U/L (Abnormal) Range: 12-78 ALK P 66 U/L (Normal) Range: 50-136 AST 76 U/L (Abnormal) Range: 15-37 Comments: Moderate Hemolysis, Result may be falsely increased. GLOB 4.0 g/dL (Abnormal) Range: 2.3-3.5 ALB 3.3 g/dL (Abnormal) Range: 3.4-5.0 T PROT 7.3 g/dL (Normal) Range: 6.4-8.2 7-Rqj-556023:00 Thyroid Stim Hormone (TSH) Comments: [facility] [address] [place], [address] TSH 1.12 {uIU/mL} (Normal) Range: 0.358-3.74 3-Wtq-983706:18 Thyroid Stim Hormone (TSH) Comments: [facility] [address] [place], [place], [address] TSH 0.59 {uIU/mL} (Normal) Range: 0.358-3.74 01-Rco-720936:18 Pathology Report Comments: PERFORMED BY: KWCYT [facility] Cyto Papmj19411 [facility] [id number] BY: INDYL [facility] [address] [place] [address] [id number] BY: LX [facility] Xktmfbi12383 [facility] [id number] Information: [id number] See MATER Comments: Material submitted: .SHAVE CHESTClinician [...] BISECTED AND SUBMITTED IN TOTO.XJW/TMZPathologist provided ICD-10:L57.0CPT .[id number] 79-Olz-[id number]:40 Basic Metabolic Profile (BMP) Comments: 'TROP' Serial specimen #1, #2, #3, or #4: [address] [place] [address] [address] [place], [address] GAP 7 (Normal) Range: 5-15 CO2 27.0 [...] 7-18 GLU 76 mg/dL (Normal) Range: 70-110 23-Zht-926389:40 BNP,B-Type NATRIURETIC PEPTIDE Comments: [facility] [address] [place], [place], [id number] B-TYPE HUMBLE PEP 406.4 pg/mL (Abnormal) Range: 0-100 98-Bmo-056920:40 CBC W/Diff, Automated Comments: [facility] [address] [place], [place], [id number] Absolute Lymph 1.25 {X10_3/ul} (Normal) Range: 0.83-4.51 [...] 4.2-5.4 WBC 9.2 K/mm3 (Normal) Range: 4.4-11.0 46-Gyn-991914:40 Troponin-I Comments: 'TROP' Serial specimen #1, #2, #3, or #4: [facility] [facility] [address] [place], [address] TROPONIN-I 0.03 ng/mL (Normal) Comments: TROPONIN-I EXPECTED VALUES <0.05 NEGATIVE 0.06 - 0.59 AT RISK OF MD > OR = 0.60 SUGGEST MD 06-Mpo-459401:25 Urinalysis, Complete Comments: Order Date: 08/09/15How was Urine Obtained? [facility] [address]fwnuf[address], [address] MUCUS, URINE 0 SEEN {/hpf} [...] (Normal) CLARITY Clear (Normal) COLOR Straw (Normal) 39-Ksp-330985:26 Basic Metabolic Profile (BMP) Comments: 'TROP' Serial specimen #1, #2, #3, or #4: [address] [place] [address] Xntds[address]qzz[address] [place], [place], [address] GAP 4 (Abnormal) Range: 5-15 CO2 29.0 [...] 7-18 GLU 66 mg/dL (Abnormal) Range: 70-110 24-Jga-337525:26 CBC W/Diff, Automated Comments: [facility] [address] [place], [place], [address] SMEAR COMMENT SCANNED (Normal) Absolute Lymph 2.04 [...] 4.2-5.4 WBC 18.6 K/mm3 (Abnormal) Range: 4.4-11.0 14-Svr-434824:26 Prothrombin Time w/INR Comments: [facility] Ah[address]mutbal[address] [place], [address] INR 1.1 (Normal) PROTIME 14.0 s (Normal) Range: 11.7-14.9 68-Qrj-650844:26 Troponin-I Comments: 'TROP' Serial specimen #1, #2, #3, or #4: 1[facility] [address]xc[address] [place], [address] TROPONIN-I < 0.02 ng/mL (Normal) Comments: TROPONIN-I EXPECTED VALUES <0.05 NEGATIVE 0.06 - 0.59 AT RISK OF MD > OR = 0.60 SUGGEST MD 12-Vnn-306777:02 Bilirubin, Direct Comments: ORDERED LIPID,LIVERDRCLOVER ORDERED CBCD,TSH,LIPID,CMP,[facility] Xzenxuhusd12[address] [place], [address] D BILI 0.15 mg/dL (Normal) Range: 0.00-0.30 61-Iiy-558950:02 CBC W/Diff, Automated Comments: [facility] [address] [place], [address] Absolute Lymph 0.99 {X10_3/ul} (Normal) Range: 0.83-4.51 [...] 4.2-5.4 WBC 7.5 K/mm3 (Normal) Range: 4.4-11.0 27-Nnq-552908:02 Comprehensive Metabolic Comments: ORDERED LIPID,LIVERDRCLOVER ORDERED CBCD,TSH,LIPID,CMP,[facility] [address]udv[address] [place], [address] Profil GAP 8 (Normal) Range: 5-15 CO2 [...] 7-18 GLU 80 mg/dL (Normal) Range: 70-110 54-Uau-234236:02 Lipid Profile Comments: ORDERED LIPID,LIVERDRCLOVER ORDERED CBCD,TSH,LIPID,CMP,[facility] [address]ptsd[address] [place], [address] VLDL 18 mg/dL (Normal) Range: [...] 200-240 mg/dL Borderline >240 mg/dL High Risk 69-Grs-857642:02 Thyroid Stim Hormone Comments: ORDERED LIPID,LIVERDRCLOVER ORDERED CBCD,TSH,LIPID,CMP,[facility] [address]wzry[address] [place], [address] (TSH) TSH 1.37 {uIU/mL} (Normal) Range: 0.358-3.74 13-Cji-589760:02 Urinalysis, Complete Comments: How was Urine Obtained? [facility] [address] [place], [address] MUCUS, URINE 0 SEEN {/hpf} [...] (Normal) CLARITY Clear (Normal) COLOR Straw (Normal) 84-Ebe-182852:40 Basic Metabolic Profile (BMP) Comments: REDRAW. PREVIOUS SPECIMEN REJECTED DUE TOHEMOLYSIS. 06/06/15 1526 Bl[address] Cruz.[facility] [address] [place], [place], [address] GAP 6 (Normal) Range: 5-15 CO2 28.0 [...] <126 mg/dLsuggests IMPAIRED HOMEOSTASIS per A.D.A. criteria. 90-Rvp-545890:10 CBC W/Diff, Automated Comments: [facility] [address]hs[address] [place], [place], [address] Absolute Lymph 1.33 {X10_3/ul} (Normal) Range: 0.83-4.51 [...] Panel Comments: PATIENT NOT FASTINGPERFORMED BY: [facility] Hflbtt[address] [facility] [id number] Information: [id number] (61480) Albumin, Serum 3.6 g/dL (Normal) Range: 3.5-4.8 [...] (Abnormal) Range: 65-99 Comments: Client Requested Flag 52-Hyz-013909:57 CK-MB Quantitative and Index Comments: Serial Specimen #1, #2 or #3? 2Comments: Should be drawn 2H after initial Troponin obtained'TROP' Serial specimen #1, #2, #3, or #4: 2Test performed at:[facility] [address] [place] [address] CPKMB 1.1 ng/mL (Normal) Range: 0.0-5.0 Comments: CK-MB and RI Interpretation MB Relative Index Non-AMI <or= 5 NA Indeterminate > 5 <or= 4 AMI > 5 > 4 CPK TOTAL 48 U/L (Normal) Range: 26-192 24-Vnn-600429:57 Troponin-I Comments: Serial Specimen #1, #2 or #3? 2Comments: Should be drawn 2H after initial Troponin obtained'TROP' Serial specimen #1, #2, #3, or #4: 2Test performed at:[address] [place] [address] TROPONIN-I < 0.02 ng/mL (Normal) Comments: TROPONIN-I EXPECTED VALUES <0.05 NEGATIVE 0.06 - 0.59 AT RISK OF MD > OR = 0.60 SUGGEST MD 10-Htr-370967:33 Comprehensive Metabolic Profil Comments: Test performed at:[facility] [address] [place] [address] GAP 6 (Normal) Range: 5-15 [...] Comments: Please note revised CREATININE reference range eertyzjbs50/22/2015. BUN 35 mg/dL (Abnormal) Range: 7-18 GLU 53 mg/dL (Abnormal) Range: 70-110 24-Fuf-425444:33 CRP Comments: Test performed at:[facility] [address] [place] [address] C-REACTIVE PROT < 2.90 mg/L (Normal) Range: 0.0-3.0 Comments: C-Reactive Protein (CRP) provides useful information for thediagnosis, therapy and monitoring of inflammatory processesand associated diseases. For the evaluation of Relative Riskfor Cardiovascular Dise ase, a High Sensitivity CRP (HSCRP)should be ordered. 53-Gsf-583520:33 Erythrocyte Sed Rate Comments: Test performed at:[facility] [address] [place] [address] SED RATE 7 mm/h (Normal) Range: 0-30 19-Rvp-157727:38 URINE DAR CULTURE-NOREEN COL Comments: PATIENT NOT FASTINGPERFORMED BY: MISHA [facility] Pckwqg[address] [facility] [place] [id number] Information: SRC:URC [id number] COUNT (36921) Result 1 NG36 (Normal) Comments: No growth in 36 - 48 hours. Urine Culture,Comprehensive Final report (Normal) 60-Lvm-642540:07 Urinalysis, Office (70957) UA - LEUKOCYTE ESTERASE Trace (Normal) UA - NITRITE Negative (Normal) URINE UROBILINGN NOREEN TIMED 2 mg/dL (Normal) UA - PROTEIN Negative mg/dL (Normal) UA - PH 5.0 (Normal) UA - BLOOD Negative (Normal) UA - SPECIFIC GRAVITY 1.015 (Normal) UA - KETONES Small mg/dL (Normal) UA - BILIRUBIN Negative (Normal) UA - GLUCOSE Negative (Normal) 08-Feb-20159:39 Pathology Report Comments: PERFORMED BY: [facility] [place] Cyto Pqhef63287 [facility] [id number] BY: [facility] Dermatopathology Mjbvkfc172 [address] [id number] Information: [id number] See MATER Comments: Material submitted: .SHAVE BIOPSY [...] HOLOGIC CORRELATIONIS RECOMMENDED.02/13/2015Electronically signed: .Gege Reece MD, [place] topathologistGross description: .RECEIVED IS A CONTAINER LABELED IRIS ARRIAGA AND DESIGNATEDUPPER LESION ON CHEEK. IN FORMALIN IS A FERGUSON TISSUE MEASURING 4 X4 X 1 MM. IT IS INKED PURPLE, BISECTED, AND BOTH HALVES ARESUBMITTED IN A SINGLE CASSETTE.COR/BXSPathologist provided ICD-9:686.9, 682.0CPT .828062, 002852, 989963 64-Msr-588053:29 T4 Total, Thyroxin Comments: PER PT ONLY TSH AND T4 TODAYTest performed at:[facility] [address] [place] [address] T4 THYROXIN 13.2 ug/dL (Normal) Range: 4.8-13.9 67-Mjz-982787:29 Thyroid Stim Hormone (TSH) Comments: PER PT ONLY TSH AND T4 TODAYTest performed at:[facility] [address] [place] [address] TSH 3.74 {uIU/mL} (Normal) Range: 0.358-3.74 55-Jty-194899:17 URINE DAR CULTURE-NOREEN COL Comments: PATIENT NOT FASTINGPERFORMED BY: [facility] Xquvwr5088 [facility] [id number] Information: SRC: URINE COUNT (11207) Result 1 NG36 (Normal) Comments: No growth in 36 - 48 hours. Urine Culture,Comprehensive Final report (Normal) 47-Gym-196592:48 Urinalysis, Office (23799) UA - LEUKOCYTE ESTERASE Negative (Normal) UA - NITRITE Negative (Normal) URINE UROBILINGN NOREEN TIMED Normal mg/dL (Normal) UA - PROTEIN Negative mg/dL (Normal) UA - PH 6.0 (Normal) Comments: 5.5 UA - BLOOD Negative (Normal) UA - SPECIFIC GRAVITY 1.010 (Normal) UA - KETONES Negative mg/dL (Normal) UA - BILIRUBIN Negative (Normal) UA - GLUCOSE Negative (Normal) 62-Brg-551896:31 Basic Metabolic Profile (BMP) Comments: Test performed at:[facility] [address] [place], [place] [address] GAP 5 (Normal) Range: 5-15 CO2 27.0 mmol/L (Normal) Range: 21.0-32.0 CL 103 mmol/L (Normal) Range: 98-107 K 4.8 mmol/L (Normal) Range: 3.5-5.1 NA 135 mmol/L (Abnormal) Range: 136-145 CA 8.7 mg/dL (Normal) Range: 8.5-10.1 BUN/CRE 16.4 {RATIO} (Normal) Range: 10-20 CREAT,SERUM 1.1 mg/dL (Abnormal) Range: 0.6-1.0 BUN 18 mg/dL (Normal) Range: 7-18 GLU 89 mg/dL (Normal) Range: 70-110 98-Bvy-520784:31 Lipid Profile Comments: Test performed at:[facility] [address] [place] [address] VLDL 22 mg/dL (Normal) Range: [...] 200-240 mg/dL Borderline >240 mg/dL High Risk 03-Qmb-754472:31 Liver Profile Comments: Test performed at:[facility] [address] [place] [address] D BILI 0.10 mg/dL (Normal) Range: 0.00-0.30 T BILI 0.30 mg/dL (Normal) Range: 0.00-4.00 ALT 35 U/L (Normal) Range: 12-78 ALK P 85 U/L (Normal) Range: 50-136 AST 38 U/L (Abnormal) Range: 15-37 GLOB 3.6 g/dL (Normal) Range: 2.7-4.2 ALB 3.7 g/dL (Normal) Range: 3.4-5.0 T PROT 7.3 g/dL (Normal) Range: 6.4-8.2 35-Wby-026603:31 T4 Total, Thyroxin Comments: Test performed at:[facility] [address] [place] [address] T4 THYROXIN 14.9 ug/dL (Abnormal) Range: 4.8-13.9 :31 Thyroid Stim Hormone (TSH) Comments: Test performed at:[facility] [address] [place] [address] TSH 2.32 {uIU/mL} (Normal) Range: 0.358-3.74 :30 CBC W/Diff, Automated Comments: Test performed at:[facility] [address] [place] [address] Absolute Lymph 1.12 {X10_3/ul} (Normal) [...] 4.2-5.4 WBC 8.8 K/mm3 (Normal) Range: 4.4-11.0 93-Gqi-529633:30 Urinalysis, Complete Comments: DR HUANG LIVER LIPID TSH T4 ONLYHow was Urine Obtained? CLEAN CATCHTest performed at:[facility] Crfltiqxzq6164 [facility] [place] [address] HYALINE CAST 0-5 SEEN {/lpf} [...] CLARITY Sl. Cloudy (Normal) COLOR Yellow (Normal) 04-Hzk-430542:09 CBC W/Diff, Automated Comments: Test performed at:[facility] Dhpjzdoroy8741 [facility] [place] [address] Absolute Lymph 0.85 {X10_3/ul} (Normal) [...] 4.2-5.4 WBC 8.7 K/mm3 (Normal) Range: 4.4-11.0 57-Ovw-210010:09 Comprehensive Metabolic Profil Comments: 'TROP' Serial specimen #1, #2, #3, or #4: 1Test performed at:[facility] [address]ft[address] [place], [place] [address] GAP 5 (Normal) Range: 5-15 CO2 27.0 [...] <126 mg/dLsuggests IMPAIRED HOMEOSTASIS per A.D.A. criteria. 61-Hhh-814619:09 Troponin-I Comments: 'TROP' Serial specimen #1, #2, #3, or #4: 1Test performed at:[facility] [address] [place], [place] [address] TROPONIN-I < 0.02 ng/mL (Normal) Comments: TROPONIN-I EXPECTED VALUES <0.05 NEGATIVE 0.06 - 0.59 AT RISK OF MD > OR = 0.60 SUGGEST MD 63-Ewv-887977:21 Rapid Flu (94547 x 2) Influenza A Ag neg (Normal) 4-Tof-352095:05 TSH 6.19 {uIU/mL} (Abnormal) Range: 0.358-3.74 25-Kyd-38452:54 CBCMD ANC 10.3 3/uL (Abnormal) Range: 2.0-7.7 [...] CHOL 151 mg/dL (Normal) Comments: <200 mg/dL Qfuwxxbgr195-602 mg/dL Borderline>240 mg/dL High Risk :54 TSH 0.72 {uIU/mL} (Normal) Range: 0.358-3.74 76-Mjr-436831:37 Rapid Strep Test, Office (56195) Comments: neg Rapid Strep Test, Office Negative (Normal) 93-Wrd-247402:03 DAR CULTURE-OTHER (85697) Comments: PATIENT NOT FASTINGPERFORMED BY: [facility]CoThe [facility] Tinton FallsGbthce4719 [facility] [id number] Information: SRC:THRT [id number] Result 1 RRF (Normal) Comments: Routine respiratory julia Upper Respiratory Culture Final report (Normal) 08-Mdb-020046:12 Urinalysis, Office (68918) UA - BILIRUBIN Negative (Normal) UA - BLOOD Hemolyzed Trace (Normal) UA - GLUCOSE Negative (Normal) UA - KETONES Negative mg/dL (Normal) UA - LEUKOCYTE ESTERASE Trace (Normal) UA - NITRITE Negative (Normal) UA - PH 6.0 (Normal) UA - PROTEIN Negative mg/dL (Normal) UA - SPECIFIC GRAVITY 1.010 (Normal) URINE UROBILINGN NOREEN TIMED 2 mg/dL (Normal) 61-Gyn-001404:53 DEXA BONE DENSITY STUDY (HP) Radiology Report [...] Fink M.D.July 29, 2012 at 2:05:06 PM [phone] Signed GP/GP If you are the referring physician and would like to consult with theradiologist who provided this interpretation, please contact Aleida Osei at [phone]. If this radiologist is unavailable, youwil l be directed to another radiologist to assist. If you are a patient with a question regarding this report, pleasecontactyour referring physician directly. Professional Interpretation Provided By: Zayante karina, Phone , These documents contain legally [...] 07/29/12 1410 Sign by: Ed Fink MD 06-Bue-275293:37 BILAT SCRN DIGITAL & CAD Radiology Report [...] Fink M.D.July 14, 2012 at 1:35:04 PM [phone] Signed GP/GP If you are the referring physician and would like to consult with theradiologist who provided this interpretation, please contact Aleida Osei at [phone]. If this radiologist is unavailable, youwill be directed to another radiologist to assist. If you are a patient with a questi on regarding this report, pleasecontactyour referring physician directly. Professional Interpretation Provided By: [employer], Phone , These documents contain legally prot [...] mg/dL Comments: Order Date: 02/06/12OV Order #: [id number] ID: [id number] Comments: DX = 272.4 JLS [...] 12 hours, may have water.OV Order #: [id number] Order #: [id number] Comments: Reason:Interface Comments: DX = 427.31 [facility] 02/07/12OV Order #: [id number] Comments: DX = 428.0 [facility] 02/07/12 Range: 0.00-0.30 10-Rgm-791941:57 CMP Comments: Order Date: 02/06/12OV Order #: [id number] ID: [id number] Comments: DX = 272.4 [facility] 02/07/12Diagnosis: V58.69 - LONG-TERM [...] 12 hours, may have water.OV Order #: [id number] Order #: [id number] Comments: Reason:Interface Comments: DX = 427.31 [facility] 02/07/12OV Order #: [id number] Comments: DX = 428.0 [facility] 02/07/12 GAP 6 (Normal) [...] 7-18 GLU 92 mg/dL (Normal) Range: 70-110 28-Yvy-737323:57 LIPID Comments: Order Date: 02/06/12OV Order #: [id number] ID: [id number] Comments: DX = 272.4 [facility] 02/07/12Diagnosis: V58.69 - LONG-TERM [...] 12 hours, may have water.OV Order #: [id number] Order #: [id number] Comments: Reason:Interface Comments: DX = 427.31 [facility] 02/07/12OV Order #: [id number] Comments: DX = 428.0 [facility] 02/07/12 VLDL 13 mg/dL [...] (Normal) Comments: Order Date: 02/06/12OV Order #: [id number] ID: [id number] Comments: DX = 272.4 JLS [...] 12 hours, may have water.OV Order #: [id number] Order #: [id number] Comments: Reason:Interface Comments: DX = 427.31 [facility] 02/07/12OV Order #: [id number] Comments: DX = 428.0 [facility] 02/07/12 Range: 2.5-4.9 42-Owz-708986:57 T4 12.6 ug/dL (Normal) Comments: Order Date: 02/06/12OV Order #: [id number] ID: [id number] Comments: DX = 272.4 JLS [...] 12 hours, may have water.OV Order #: [id number] Order #: [id number] Comments: Reason:Interface Comments: DX = 427.31 [facility] 02/07/12OV Order #: [id number] Comments: DX = 428.0 [facility] 02/07/12 Range: 4.8-13.9 29-Jyl-377451:57 T4F 1.76 ng/dL (Abnormal) Comments: Order Date: 02/06/12OV Order #: [id number] ID: [id number] Comments: DX = 272.4 [facility] 02/07/12Diagnosis: V58.69 - LONG-TERM [...] 12 hours, may have water.OV Order #: [id number] Order #: [id number] Comments: Reason:Interface Comments: DX = 427.31 [facility] 02/07/12OV Order #: [id number] Comments: DX = 428.0 [facility] 02/07/12 Range: 0.76-1.46 14-Wtz-928943:57 TSH 2.47 {uIU/mL} (Normal) Comments: Order Date: 02/06/12OV Order #: [id number] ID: [id number] Comments: DX = 272.4 [facility] 02/07/12Diagnosis: V58.69 - LONG-TERM [...] 12 hours, may have water.OV Order #: [id number] Order #: [id number] Comments: Reason:Interface Comments: DX = 427.31 [facility] 02/07/12OV Order #: [id number] Comments: DX = 428.0 [facility] 02/07/12 Range: 0.358-3.74 43-Bsd-622745:47 CBCD Comments: DR. VERGARA ORDERED CMP, RENAL, [...] 4.2-5.4 WBC 6.7 K/mm3 (Normal) Range: 4.4-11.0 6-Qjt-012758:21 CBCD ANC 5.1 3/uL (Normal) Range: 2.0-7.7 [...] 4.2-5.4 WBC 7.8 K/mm3 (Normal) Range: 4.4-11.0 4-Ugm-915666:21 LIPID Comments: ORDERED TSH LIPID T4DR.BONEALIA ORDERED [...] VALVE PROLAPSEDiagnosis: 272.4 - HYPERLIPIDEMIAOV Order #: [id number] ID: [id number] Order #: [id number] Comments: Reason:OV Order #: [id number] VLDL 10 mg/dL (Normal) Range: 5-40 LDL [...] 200-240 mg/dL Borderline >240 mg/dL High Risk 0-Bio-494231:21 RENAL Comments: ORDERED TSH LIPID T4DR.CLARY ORDERED [...] VALVE PROLAPSEDiagnosis: 272.4 - HYPERLIPIDEMIAOV Order #: [id number] ID: [id number] Order #: [id number] Comments: Reason:OV Order #: [id number] CO2 26.0 mmol/L (Normal) Range: 21.0-32.0 CL [...] 7-18 GLU 87 mg/dL (Normal) Range: 70-110 0-Srd-027210:21 T4 15.1 ug/dL (Abnormal) Comments: ORDERED TSH [...] VALVE PROLAPSEDiagnosis: 272.4 - HYPERLIPIDEMIAOV Order #: [id number] ID: [id number] Order #: [id number] Comments: Reason:OV Order #: [id number] Range: 4.8-13.9 8-Jjp-318145:21 TSH 1.69 {uIU/mL} (Normal) Comments: ORDERED TSH [...] VALVE PROLAPSEDiagnosis: 272.4 - HYPERLIPIDEMIAOV Order #: [id number] ID: [id number] Order #: [id number] Comments: Reason:OV Order #: [id number] Range: 0.358-3.74 00-Qsk-39509:57 BMP GAP 7 (Normal) Range: 5-15 CO2 [...] :57 TSH 2.61 {uIU/mL} (Normal) Range: 0.358-3.74 33-Plg-755356:38 URINE DAR CULTURE-NOREEN COL Comments: PATIENT NOT FASTINGPERFORMED BY: [facility]CoThe [facility] Tinton FallsIirptw7648 [facility] [id number] Information: SRC: URINE COUNT (46870) Result 1 NG36 (Normal) Comments: No growth in 36 - 48 hours. Urine Culture,Comprehensive Final report (Normal) :42 Urinalysis, Office (31746) UA - BILIRUBIN Negative (Normal) UA - BLOOD Non Hemolyzed Trace (Normal) UA - GLUCOSE Negative (Normal) UA - KETONES Negative mg/dL (Normal) UA - LEUKOCYTE ESTERASE Trace (Abnormal) UA - NITRITE Negative (Normal) UA - PH 5.0 (Normal) UA - PROTEIN Negative mg/dL (Normal) UA - SPECIFIC GRAVITY 1.005 (Normal) URINE UROBILINGN NOREEN TIMED Normal mg/dL (Normal) 61-Dls-859540:03 Urinalysis, Office (77407) UA - BILIRUBIN Negative (Normal) UA - BLOOD Hemolyzed Trace (Normal) UA - GLUCOSE Negative (Normal) UA - KETONES Negative mg/dL (Normal) UA - LEUKOCYTE ESTERASE Trace (Normal) UA - NITRITE Negative (Normal) UA - PH 5.0 (Normal) UA - PROTEIN Negative mg/dL (Normal) UA - SPECIFIC GRAVITY 1.010 (Normal) URINE UROBILINGN NOREEN TIMED Normal mg/dL (Normal) 3-Lih-087909:00 BMP Comments: JANET ORDERED BMP MG T4 [...] 7-18 GLU 88 mg/dL (Normal) Range: 70-110 1-Ovy-771156:00 LIPID Comments: JANET ORDERED BMP MG T4 [...] 200-240 mg/dL Borderline >240 mg/dL High Risk 7-Fpo-431656:00 LIVER Comments: JANET ORDERED BMP MG T4 TSH LIVER LIPIDBONEZZI ORDERED BMP TSH T4F D BILI 0.11 mg/dL (Normal) Range: 0.00-0.30 T BILI 0.40 mg/dL (Normal) Range: 0.00-1.00 ALT 26 U/L (Normal) Range: 12-78 ALK P 70 U/L (Normal) Range: 50-136 AST 23 U/L (Normal) Range: 15-37 ALB 4.1 g/dL (Normal) Range: 3.4-5.0 T PROT 8.0 g/dL (Normal) Range: 6.4-8.2 6-Ula-121942:00 MG 2.0 mg/dL (Normal) Comments: JANET ORDERED BMP MG T4 TSH LIVER LIPIDBONEZZI ORDERED BMP TSH T4F Range: 1.5-2.2 4-Ifj-841928:00 T4 FREE DIRECT 1.69 ng/dL (Abnormal) Comments: JANET ORDERED BMP MG T4 TSH LIVER LIPIDBONEZZI ORDERED BMP TSH T4F Range: 0.76-1.46 8-Zih-307321:00 T4 THYROXIN 14.3 ug/dL (Abnormal) Comments: JANET ORDERED BMP MG T4 TSH LIVER LIPIDBONEZZI ORDERED BMP TSH T4F Range: 4.8-13.9 2-Igr-453055:00 TSH 2.00 {uIU/mL} (Normal) Comments: JANET ORDERED BMP MG T4 TSH LIVER LIPIDBONEZZI ORDERED BMP TSH T4F Range: 0.358-3.74 1-Mcf-151727:46 Anaerobic and Aerobic Comments: PERFORMED BY: [facility]6370 [facility] [id number] Information: SRC:EB RIGHT ELBOW Culture Result 1 NG36 (Normal) Comments: No growth in 36 - 48 hours. Aerobic Culture Final report (Normal) Result 1 [id number] (Normal) Comments: No aerobic or anaerobic growth in 72 hours. Anaerobic Culture Final report (Normal) 7-Wau-647594:39 Urinalysis, Office (05214) UA - BILIRUBIN Negative (Normal) UA - BLOOD Negative (Normal) UA - GLUCOSE Negative (Normal) UA - KETONES Negative mg/dL (Normal) UA - LEUKOCYTE ESTERASE Negative (Normal) UA - NITRITE Negative (Normal) UA - PH 5.0 (Normal) UA - PROTEIN Negative mg/dL (Normal) UA - SPECIFIC GRAVITY 1.015 (Normal) URINE UROBILINGN NOREEN TIMED 2 mg/dL (Normal) 94-Fnb-74735:00 L/S SPINE,MIN 4 VIEWS Radiology Report See [...] (Abnormal) Range: 0-34 Comments: Performed at: - Lab[address] [id number] Director: Bella Taylor MD, Phone: [phone] T3 TOTAL 0.8 ng/mL (Normal) Comments: ORDERED [...] TPO T3F T4F 2:06 (Abnormal) Range: 0.358-3.74 29-Yxx-256231:13 BMP GAP 12 (Normal) Range: 5-15 CO2 [...] 7-18 GLU 95 mg/dL (Normal) Range: 70-110 27-Vdf-948314:13 CBCD ABSOLUTE NEUT 5.1 3/uL (Normal) Range: [...] 4.2-5.4 WBC 7.1 K/mm3 (Normal) Range: 4.4-11.0 48-Fls-498140:34 Vaginitis/Vaginosis, DNA Probe Comments: PERFORMED BY: MISHA [facility]6370 [facility] [id number] Information: SRC:CE Gardnerella vaginalis Negative (Normal) Trichomonas [...] Visit for suture removal Concussion : Reviewed Support Teacher Letter Indication: Concussion Fall, accidental : Reviewed Support Teacher Letter Indication: Fall, accidental Fall, accidental : [...] Cerumen impaction : Follow up in with [facility] for ear irrigation Indication: Cerumen impaction [...] tract infection, unspecified type Planned Observations TSH ([id number])Indication: Memory impairment On: 07-Ekj-561712:11 Request AMMONIA ([id number])Indication: Memory impairment On: 11-Hcr-148920:11 Request Methymalonic Acid, Serum ([id number])Indication: Memory impairment On: 54-Xpl-643845:11 Request VITAMIN B-12 (CYANOCOBALAMIN) ([id number])Indication: Memory impairment On: 22-Vuq-994571:11 Request FOLIC ACID SERUM ([id number])Indication: Memory impairment On: 23-Uki-907966:11 Request METABOLIC PANEL, COMPREHENSIVE ([id number])Indication: Coronary artery disease On: 41-Cyc-773155:02 Request Comments: fax copy to SHAWN Bonilla, BY NMR ([id number])Indication: Coronary artery disease On: 25-Qkj-906555:02 Request CALCIFIDIOL (78273) VIT D 25Indication: Vitamin D deficiency On: 73-Rjn-678914:02 Request Metabolic Panel, Comprehensive ([id number])Indication: Hypokalemia On: 12-Nov-2017 Request Comments: fax a copy to Dr. Caitlin May [phone] Huang [phone] MAGNESIUM ([id number])Indication: Hypokalemia On: 7-Qlp-656712:03 Request Metabolic Panel, Comprehensive ([id number])Indication: Hypokalemia On: 2-Uik-745099:02 Request Comments: fax a copy to Dr. Caitlin May [phone] Huang [phone] Metabolic Panel, Comprehensive ([id number])Indication: Hypokalemia On: 05-Nov-2017 Request Comments: fax a copy to Dr. Caitlin [id number] Huang [phone] Metabolic Panel, Comprehensive ([id number])Indication: Hypokalemia On: 29-Oct-2017 Request Comments: fax a copy to Dr. Caitlin [id number] Huang [phone] Metabolic Panel, Comprehensive ([id number])Indication: Hypokalemia On: 22-Oct-2017 Request Comments: fax a copy to Dr. Caitlin [id number] Huang [phone] Metabolic Panel, Comprehensive ([id number])Indication: Hypokalemia On: 15-Oct-2017 Request Comments: fax a copy to Dr. Tucker [phone] Huang [phone] Metabolic Panel, Comprehensive ([id number])Indication: Hypokalemia On: 08-Oct-2017 Request Comments: fax a copy to Dr. Caitlin May [phone] Huang [phone] Metabolic Panel, Comprehensive ([id number])Indication: Hypokalemia On: 01-Oct-2017 Request Comments: fax a copy to Dr. Caitlin May [phone] Huang [phone] Metabolic Panel, Comprehensive ([id number])Indication: Hypokalemia On: 24-Sep-2017 Request Comments: fax a copy to Dr. Caitlin May [phone] Huang [phone] Renal function Panel ([id number])Indication: Renal insufficiency (Renamed from Renal function impairment) On: 19-Pfu-862168:23 Request URIC ACID BLOOD (60703)Indication: Abnormal laboratory test On: 36-Wap-261604:53 Request Metabolic Panel, Comprehensive ([id number])Indication: Hypokalemia On: 17-Sep-2017 Request Comments: fax a copy to Dr. Caitlin May [phone] Huang [phone] Metabolic Panel, Comprehensive ([id number])Indication: Hypokalemia On: 10-Sep-2017 Request Comments: fax a copy to Dr. Caitlin May [phone] Huang [phone] Metabolic Panel, Basic ([id number])Indication: Cardiomyopathy On: 69-Fez-035590:02 Request Comments: now stat and prn CREATININE BLOOD (95870)Indication: Left leg swelling On: 08-Rfr-317622:05 Request Metabolic Panel, Basic (46525)Indication: Renal insufficiency (Renamed from Renal function impairment) On: 35-Cuf-029220:16 Request Comments: re check in 4 weeks T4, FREE (THYROXINE) (10011)Indication: Hypothyroidism On: 24-Cxg-207752:49 Request CALCIFIDIOL (42605) VIT D 25Indication: Vitamin D deficiency On: 09-Udw-150138:47 Request TSH (THYROID STIMULATING HORMONE) (86632)Indication: Hypothyroidism On: 00-Hrz-835061:46 Request CREATININE BLOOD (73376)Indication: Abdominal pain, acute On: 71-Sst-283616:34 Request Metabolic Panel, Basic (25049)Indication: Abdominal pain, acute On: 74-Mss-21807:31 Request T4, FREE (THYROXINE) ([id number])Indication: Hypothyroidism On: :30 Request TSH ([id number])Indication: Hypothyroidism On: :30 Request METABOLIC PANEL, COMPREHENSIVE (75169)Indication: DVT, bilateral lower limbs On: 94-Niv-302148:48 Request PTT (Activated Partial Thromboplastin Time) (13688)Indication: DVT, bilateral lower limbs On: :29 Request PT (Prothrobim Time) (73433)Indication: DVT, bilateral lower limbs On: 42-Imc-399628:29 Request Factor 2 (Prothrombin) Gene Mutation (18071)Indication: DVT, bilateral lower limbs On: :29 Request Factor V Leiden (15339)Indication: DVT, bilateral lower limbs On: :28 Request Antiphospholipid atb (79326)Indication: DVT, bilateral lower limbs On: :28 Request CBC, Platelets & Auto Diff (77915)Indication: Abdominal pain, acute On: 93-Yub-22863:38 Request Comments: coipy to Dr. jessie armendariz stat HEPATIC FUNCTION PANEL (38445)Indication: Abdominal pain, acute On: :37 Request Comments: to stat copy to Dr. natalie armendariz Metabolic Panel, Comprehensive ([id number])Indication: Abdominal pain, acute On: :23 Request Comments: all STAT Sed Rate Erythrocyte (14768)Indication: Abdominal pain, acute On: 82-Lxb-07447:19 Request CBC, Platelets & Auto Diff (69866)Indication: Abdominal pain, acute On: :19 Request Ferritin (00806)Indication: Abnormal RBC indices On: :08 Request CALCIFEDIOL (04490)Indication: Vitamin D deficiency On: :02 Request Folic Acid Serum (35881)Indication: Memory impairment On: :35 Request Methymalonic Acid, Serum (53986)Indication: Memory impairment On: :35 Request Vitamin B-12 (cyanocobalamin) (81795)Indication: Memory impairment On: :35 Request Metabolic Panel, Basic (07940)Indication: Cardiomyopathy in other diseases classified elsewhere On: :43 Request Urinalysis, Office (36530)Indication: Abdominal pain, acute On: 58-Lvu-082648:47 Request URINE DAR CULTURE-IDENTIFICATN (28248)Indication: Abdominal pain, acute On: 54-Xqx-333669:20 Request TSH (49628)Indication: Hypothyroidism On: 89-Tms-148008:50 Request Comments: 8 weeks TSH (84824)Indication: Hypothyroidism On: :58 Request URINALYSIS, W/ MICRO (02871)Indication: Coronary artery disease On: :57 Request METABOLIC PANEL, COMPREHENSIVE (60510)Indication: Coronary artery disease On: :57 Request LIPID PANEL (10447)Indication: Coronary artery disease On: :57 Request CBC with auto diff ([id number])Indication: Coronary artery disease On: :57 Request C-REACTIVE PROTEIN (40956)Indication: Abdominal pain, acute, generalized On: 86-Dyg-903864:31 Request Comments: stat CBC W/AUTO DIFF WBC (01144)Indication: Abdominal pain, acute, generalized On: :31 Request Comments: stat METABOLIC PANEL, COMPREHENSIVE ([id number])Indication: Abdominal pain, acute, generalized On: :31 Request Comments: stat SED RATE ERYTHROCYTE (01599)Indication: Abdominal pain, acute, generalized On: 42-Lqw-797550:26 Request CBC with auto diff ([id number])Indication: Cardiomyopathy On: :59 Request Comments: copy to Dr. valerio URINALYSIS, W/ MICRO ([id number])Indication: Cardiomyopathy On: :58 Request METABOLIC PANEL, COMPREHENSIVE (41679)Indication: Cardiomyopathy On: :58 Request LIPID PANEL ([id number])Indication: Cardiomyopathy On: :58 Request TSH ([id number])Indication: Hypothyroidism On: :58 Request CBC W/AUTO DIFF WBC ([id number])Indication: Coronary artery disease On: :08 Request Comments: copy to cardiology TSH ([id number])Indication: Hypothyroidism On: :08 Request URINALYSIS, W/ MICRO ([id number])Indication: Coronary artery disease On: :08 Request METABOLIC PANEL, COMPREHENSIVE (54926)Indication: Coronary artery disease On: :08 Request LIPID PANEL ([id number])Indication: Coronary artery disease On: :08 Request METABOLIC PANEL, COMPREHENSIVE (60630)Indication: Coronary artery disease On: :15 Request Comments: 05-24 CBC WITH MANUAL DIFF ([id number])Indication: Coronary artery disease On: :15 Request Comments: 05-24 TSH ([id number])Indication: Hypothyroidism On: 12-Xdn-532925:13 Request TSH ([id number])Indication: Hypothyroidism On: 18-Vfh-849373:18 Request CBC WITH MANUAL DIFF ([id number])Indication: Coronary artery disease On: 7-Iqd-259511:11 Request Comments: copy to [facility] URINALYSIS, W/ MICRO ([id number])Indication: Coronary artery disease On: 8-Pwo-681357:11 Request METABOLIC PANEL, COMPREHENSIVE ([id number])Indication: Coronary artery disease On: 0-Tqd-472795:11 Request LIPID PANEL ([id number])Indication: Coronary artery disease On: 0-Koq-042422:11 Request TSH ([id number])Indication: Hypothyroidism On: 4-Elw-912763:11 Request TSH ([id number])Indication: Hypothyroidism On: 33-Flb-429168:02 Request METABOLIC PANEL, COMPREHENSIVE ([id number])Indication: Cardiomyopathy On: 52-Ehc-448673:02 Request LIPID PANEL ([id number])Indication: Cardiomyopathy On: 83-Nsz-091847:02 Request CBC WITH MANUAL DIFF ([id number])Indication: Cardiomyopathy On: 82-Tml-261338:02 Request TSH ([id number])Indication: Hypothyroidism On: :29 Request Renal function Panel (40473)Indication: Renal insufficiency (Renamed from Renal function impairment) On: 98-Wub-820988:29 Request CBC (Auto) ([id number])Indication: Cardiomyopathy On: :40 Request Metabolic Panel, Comprehensive (65071)Indication: Cardiomyopathy On: :40 Request T4, FREE (THYROXINE) (98704)Indication: Hypothyroidism On: 32-Nwj-952020:39 Request TSH ([id number])Indication: Hypothyroidism On: 65-Dkt-114839:39 Request TSH ([id number])Indication: Hypothyroidism On: 3-Plz-878129:09 Request CBC (Auto) ([id number])Indication: Cardiomyopathy On: 4-Pbf-846197:08 Request Renal function Panel (30881)Indication: Cardiomyopathy On: :08 Request Metabolic Panel, Basic (77151)Indication: Cardiomyopathy On: :03 Request T4, FREE (THYROXINE) ([id number])Indication: Hypothyroidism On: :03 Request TSH ([id number])Indication: Hypothyroidism On: :03 Request Metabolic Panel, Basic ([id number])Indication: Renal insufficiency (Renamed from Renal function impairment) On: 80-Xrp-159859:36 Request T4, FREE (THYROXINE) (09092)Indication: Hypothyroidism On: :35 Request TSH ([id number])Indication: Hypothyroidism On: :35 Request DAR CULTURE-OTHER ([id number])Indication: Bursitis, olecranon On: 4-Mxb-226625:18 Request Comments: olecranon bursa Metabolic Panel, Basic ([id number])Indication: Hyperlipemia On: 16-Ffx-038054:09 Request Metabolic Panel, Basic ([id number])Indication: Gastroenteritis On: 76-Kaw-826818:56 Request Comments: stat CBC (Auto) ([id number])Indication: Gastroenteritis On: 85-Bti-882887:56 Request Metabolic Panel, Basic ([id number])Indication: Cardiomyopathy On: :53 Request TSH ([id number])Indication: PVT (paroxysmal ventricular tachycardia) On: 65-Kqu-292417:53 Request URINALYSIS ([id number])Indication: Cardiomyopathy On: :53 Request CBC (Auto) ([id number])Indication: Cardiomyopathy On: 87-Udb-482234:53 Request INFCT ANTGN TRICH VAGIN DIRECT PRB ([id number])Indication: Vaginal discharge On: 01-Jcf-103062:31 Request GARDNERELLA VAG, NUCLEIC ACID DIR PROBE ([id number])Indication: Vaginal discharge On: :31 Request ILEANA, NUCLEIC ACID DIRECT PROBE ([id number])Indication: Vaginal discharge On: 17-Mte-291242:31 Request Planned Encounters Medical; [facility] 2 Month FU - On: 06-Jul-2018 10:15 [facility] Clary TIRADO, Minerva Oseguera MD Planned Procedures Flu Vaccine (Quadrivalent) On: 01-Jun-2018 Intent 37660Ov: Visit, Nurse Comments: Lot #[id number]-L dltd, IMDose prefilled syringegiven by:SORAIDA Calloway reviewed and ABN signed Aerosol Treatment ([id number])By: On: 08-Jan-2018 Intent Clary TIRADO, Minerva Oseguera MD SCREENING DIGITAL On: 23-Sep-2017 Intent TOMOSYNTHESIS OF BREAST (10517)By: Minerva Vergara MD, MD, Dana M Venous Doppler - LowerBy: On: 23-Sep-2017 Intent Minerva Vergara MD Comments: lower left extremity follow up on DVT from 07-27 due october Minerva TIRADO CTA ABDOMEN AND PELVIS On: 28-Jul-2017 Intent INCLUDING IMAGE POSTPROCESSING ([id number])By: Clary TIRADO, Minerva Oseguera MD VENOUS DOPPLER LOWER On: 28-Jul-2017 Intent EXTREMITY (51483)By: Clary Comments: upper and lower left legcall results to [phone] Minerva TIRADO MD, Dana M Radiology - [...] FLAT PLATE AND On: 04-Dec-2016 Intent ERECT (84201)By: Ida Quiñonez DO CT - Chest (IV Contrast On: 04-Dec-2016 Intent Needed)By: Ida Quiñonez DO Comments: pe protocol today CT - Abdomen (Without On: 25-Nov-2016 Intent Contrast)By: Minerva Vergara MD, MD, Dana M Spirometry (10755)By: On: 31-Oct-2016 Intent Minerva Vergara MD Comments: see scanned document of test done to see results reviewed today with patient Minerva TIRADO Radiology - ChestBy: Clary On: 31-Oct-2016 Intent Minerva TIRADO MD, Dana M Comments: call wet read Radiology - KUBBy: Clary On: 31-Oct-2016 Intent Minerva TIRADO MD, Dana M Comments: upright. call wet read to [phone] Bone Density StudyBy: Clary On: 29-Jul-2016 Intent Minerva TIRADO MD, Dana M MAMMOGRAM, BILATERAL On: 29-Jul-2016 Intent (04231)By: Minerva Vergara MD, MD, Dana M Flu Vaccine (Quadrivalent) On: 09-May-2016 Intent 01946Pw: Slarb SEAM RUBBING MACHINE OPERATOR, Meka ELECTROCARDIOGRAM, COMPLETE On: 09-Aug-2015 Intent (ECG) (42854)By: Memo Armendariz CNP Radiology - ChestBy: Clary On: 17-Jul-2015 Intent Minerva TIRADO MD, Dana M Aerosol Treatment (48618)By: On: 14-Jul-2015 Intent Minerva Vergara MD, MD, Dana M Aerosol Treatment (00531)By: On: 29-May-2015 Intent Slarb SEAM RUBBING MACHINE 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 L ac infiltrated and rpessure applied then covered with gauze and bandageno redness or swelling, no s/s infiltrationMegan, SEAM RUBBING MACHINE OPERATOR Coverage Instructions Apply. See MCM: 9) (J7030)By: Minerva Vergara MD, MD, Dana M Radiology - KUBBy: Clary On: 04-Nov-2014 Minerva Wright MD, MD, Dana M Comments: do today and call over wet read Radiology - Shoulder - On: 04-Nov-2014 Intent RightBy: Minerva Vergara MD, MD, Dana M Wax CurettesBy: Clary TIRADO, On: 15-Sep-2014 Intent Minerva Oseguera MD Ear Irrigation (62322)By: On: 15-Sep-2014 Intent Minerva Vergara MD, MD, Dana M Radiology - Shoulder - On: 15-Sep-2014 Intent RightBy: Minerva Vergara MD, MD, Dana M Radiology - ChestBy: Clary On: 15-Sep-2014 Intent Minerva TIRADO MD, Dana M Comments: by next week if not better with atb Aerosol Treatment (02694)By: On: 01-Sep-2014 Intent Memo Armendariz CNP DEXA SCAN AXIAL SKELETON On: 18-Feb-2014 Intent (72174)By: Minerva Vergara MD, MD, Dana M MAMMOGRAM, SCREENING, BOTH On: 18-Feb-2014 Intent BREAST (66689)By: Minerva Vergara MD, MD, Dana M INFUSION, NORMAL SALINE On: 29-Oct-2013 Intent SOLUTION , 250 CC (Special Coverage Instructions Apply. See MCM: 2049) (J7050)By: Tiera Carmen DO IV Needle placement On: 29-Oct-2013 Intent (87950)By: Kermit WEBER, Comments: 3rd attempt successful in R RJ Wagner Tiera IV Infusion (44757)By: Kermit On: 29-Oct-2013 Tiera Wright DO Eprescribed prescriptions On: 29-Oct-2013 Intent (G8553)By: Tiera Carmen DO Aerosol Treatment (41532)By: On: 29-Oct-2013 Intent Tiera Carmen DO Solu- Medrol Injection, 125mg On: 29-Oct-2013 Intent (J2930)By: Kermit WEBER, Comments: lot: [id number]: 12/23site/route: RGM/IMamt:2mLVIS signed when applicableChelsИВАН gutiérrez Tiera Eprescribed prescriptions On: 26-Oct-2013 Intent (G8553)By: Clary TIRADO, Minerva Oseguera MD Wax CurettesBy: Ciglenysa DEVELOPMENT ASSOCIATE, On: 22-Oct-2013 Intent Saba Ear Irrigation (62606)By: On: 22-Oct-2013 Intent Ciesa DEVELOPMENT ASSOCIATE, Saba Eprescribed prescriptions On: 25-Jun-2013 Intent (G8553)By: Jeanne Gil LPN Wax CurettesBy: Clary TIRADO, On: 18-Jun-2013 Intent Minerva Vergara MD, Minerva Painting Ear Irrigation (84715)By: On: 18-Jun-2013 Intent Clary TIRADO, Minerva Vergara MD, Minerva Painting Eprescribed prescriptions On: 18-Jun-2013 Intent (G8553)By: Jeanne Gil LPN MAMMOGRAM, SCREENING, BOTH On: 16-Mar-2013 Intent BREASTS (20380)By: Clary Comments: 06-23 maddi TIRADO, Minerva Vergara MD, Minerva Painting Wax CurettesBy: Clary TIRADO, On: 16-Mar-2013 Intent Minerva Vergara MD, Minerva Painting Ear Irrigation (95852)By: On: 16-Mar-2013 Intent Minerva Vergara MD, MD, Dana M Inhaler Demonstration On: 15-Feb-2013 Intent (08443)By: Memo Armendariz CNP Aerosol Treatment (50616)By: On: 15-Feb-2013 Intent Memo Armendariz CNP Eprescribed prescriptions On: 08-Dec-2012 Intent (G8553)By: Jeanne Gil LPN Aerosol Treatment (98242)By: On: 03-Dec-2012 Intent Minerva Vergara MD, MD, Dana M Pulse Oximetry (25415)By: On: 03-Dec-2012 Intent ARON Lawrence Wax CurettesBy: Kala HAZEL, On: 25-Nov-2012 Intent Memo Weeks Ear Irrigation (66611)By: On: 25-Nov-2012 Intent Memo Armendariz CNP SPECIMEN HNDLNG/TRNSPRT, OFFC On: 25-Nov-2012 Intent > LAB (81600)By: Nova Posadas LPN Breast Screening - On: 28-Apr-2012 Intent BilateralBy: Minerva Vergara MD, MD, Dana M Bone Density StudyBy: Clary On: 28-Apr-2012 Intent Minerva TIRADO MD, Dana M Aerosol Treatment (27707)By: On: 28-Apr-2012 Intent Minerva Vergara MD, MD, Dana M TDAP VACCINE >7 IM (28149)By: On: 06-Feb-2012 Intent Sneha Vasquez doppler/ultrasound - right On: 20-Jan-2012 Intent calfBy: Minerva Vergara MD Comments: attention subcutaneous mass, history of clots Minerva Vergara MD Ear Irrigation (94397)By: On: 11-Oct-2011 Intent Minerva Vergara MD Comments: med amt of wax removed from the left ear. small amt of wax removed from the right ear. pt tolerated well. Minerva TIRADO Wax CurettesBy: Clary TIRADO, On: 11-Oct-2011 Intent Minerva Oseguera MD Aerosol Treatment (58972)By: On: 08-Oct-2011 Intent Memo Armendariz CNP Aerosol Treatment (68392)By: On: 04-Oct-2011 Intent Memo Armendariz CNP EKG (10602)By: Clary TIRADO, On: 15-Aug-2011 Intent Minerva Oseguera MD Comments: see scanned document. Nerve ConductionBy: Clary On: 29-Jul-2011 Intent Minerva TIRADO MD, Dana M Comments: lower leg EMGBy: Minerva Vergara MD On: 29-Jul-2011 Intent Minerva Vergara MD Solu -Medrol Injection, 125 On: 16-Apr-2011 Intent mg (J2930)By: Kala HAZEL, Comments: Lot:[id number]:sep 11 2013Amt:125mgRoute:IMSite:right hip Given By: RJ Soriano Memo Weeks THER/PROPH/DIAG IV INF, INIT On: 15-Feb-2011 Intent (75249)By: Minerva Vergara MD, MD, Dana M Rocephin [...] Minerva TIRADO MD, Dana M Pulse Oximetry (56698)By: On: 03-Sep-2010 Intent ARON Lawrence Radiology - Lumbar SpineBy: On: 29-Aug-2010 Intent Ida Quiñonez DO Comments: call wet read Venous Doppler - LeftBy: On: 23-Jul-2010 Intent Minerva Vergara MD Comments: leg. send copy Dr. [place] orthosMinerv[place] lovett MD HYDRATION IV INFUSION, INIT On: 28-Jun-2010 Intent (83658)By: Minerva Vergara MD Comments: only gave 500 cc of LR with CMP historyLot #:[id number] date:mount given:500ml Route: IVSite given:left wrist Given by: [employer] Production[employer] Butterfly needle placed to left wrist with [...] The patient does have durable power of insurance defense attorney and living will. The patient has noticed nothing from the geriatic depression scale. Other providers contributing to the patient's care are biological technical officer and other: (Dr. Tucker [facility]). Encounter Diagnosis: [...] cancer screening up to date- drove to [place] few weeks ago- no family hx of [...] The patient does have durable power of insurance defense attorney and living will. The patient has noticed having problems with memory than others and lack of energy. Other providers contributing to the patient's care are biological technical officer (Reina) and other: (eye doctor - has [...] Nutrition: balanced diet and supplemental vitamins. The il dical issues the patient is following up [...] [facility]: 19-Apr-2011 10:08 Implant Surgeon [place], [place] ) . There have been no [...]
--- OUTSIDE RECORDS SUMMARY | 2018-09-02 18:22 | XMS RPT_ITS | Continuity of Care Document ---
:1940 Author Organization [facility] Address [facility] 2 [place] [address] Phone Care Team Providers Name Role Phone [...] left leg wtih DVT or overall fluid [id number] 20% Status: Active Constipation (K59.00, 564.00) Comments: [...] on neurotin and help some. Dr at [facility] not want to do surgery. using [...] Puff(s) daily for 30 days Quantity: 1 {[place]} Refills: 5 Ordered:22-Jan-2018 Khang DO, Ida A [...] for 10 days Refills: 0 Ordered:26-Oct-2013 Long BODY SERVICE TEAM MEMBERJeanne Start : 22-Oct-2013 End : 01-Nov-2013 Inactive [...] Quantity: 10 {Capsule} Refills: 0 Ordered:01-Sep-2014 Memo Armenadriz CNP Start : 01-Sep-2014 End : 06-Sep-2014 [...] prn (5 MG) End : 14-Jun-2015 Discontinued Comments:[facility] DOXYCYCLINE HYCLATE, 100MG (Oral Tablet) 1 [...] Vaginal Cream 1 (one) Cream twice weekly WI 1gm and small amount over urethra for [...] Hospital discharge follow-up (Z09, V67.59) Comments: pneumonia [facility] 03-31-17 to 04-02-17 Status: Resolved as [...] Status: Inactive as of 04-Apr-2017 Vaccine for qfqcjprvjm-qjdwcqf-enwbqaedc with poliomyelitis (Z23, V06.3) Status: Inactive as [...] Dates Details cataract sx [facility], Single Completed Comments: with Mitral valve replacement October 2009 fibrillator replaced -- April 2013 Completed -- [place] Hysterectomy, Total Completed partial bilateral knee replacement - Completed dr Magana STATUS, HEART VALVE REPLACEMENT NEC Completed (V43.3) Date Value Details 01-May-2018 Pacemaker Check Result: Comments: See Note; NOTES: [facility] [address] [place] [address] Pacemaker Check Date of Service: 05/01/18 1428 MR#: [id number] Acct: [id number] Name: IRIS ARRIAGA Rep #: [id number] : 1940 From: Kim Pickard Age/Sex: 78/F Location: [facility] Status: Signed Billing Codes ICD Device Billing: ICD Dev Prog Eval, Single 05/01/18 1430 <Elect ronically signed by Kim Pickard > Date Kim Pickard 05/01/18 1634<Electronically signed by Gurdeep Huang MD> Cosigner Sign ature: Date (if applicable) Gurdeep Huagn MD CC: 18-Mar-2018 Pulmonary Visit Report Result: Comments: See Note; NOTES: [facility] [place] [address] [place] [address] OFFICE VISIT Date of Service: 03/18/18 MR#: [id number] Acct: [id number] Name: IRIS STRINGER CH Rep #: [id number] : 1940 Provider: Glenna Anderson Age/Sex: 78/F Location: [facility] Status: Signed Assessment AND Plan Problems 1. 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 [place] [address] Pacemaker Check Date of Service: 01/28/18 1424 MR#: [id number] Acct: [id number] Name: ETHEL, IRIS S Rep #: [id number] : 1940 From: Kim Pickard Age/Sex: 78/F Location: [facility] Status: Signed Comments Summary Comments: Single Chamber ICD Report: See attached scanned numerical control tool programmer Repor t. Interrogation shows no VT/VF [...] in office Interview Reason: routine follow up Financial Sales Consultant: [employer] Name: Protecta VR Model: [id number] Serial #: [id number] Implant Date: 04/29/13 Year(s): 4 Implant Physician: Dr. Jose Murphy Patient Characteristics Atrial Indication: Paroxysmal atrial fibrillation Ventricular Indication: Nonsustained VT Patient Substrate: Nonischemic cardiomyopathy By: Echo Implant DFT: [id number] Underlying rhythm: Sinus rhythm Pacemaker Dependent: No Device Characteristics Device: Single Chamber Type: Implantable defibrillator Remote Follow-Up: No Device Physical Exam Yes Incision well healed Leads Lead #1 Financial Sales Consultant Lead 1: Medtronic Model Lead 1: 5076 Serial# Lead 1: [id number] Date Implanted Lead 1: 09/03/04 Position Lead 1: RV Lead #2 Financial Sales Consultant Lead 2: [employer] Model Lead 2: 6943 Serial# Lead 2: [id number] Date Implanted Lead 2: 11/18/00 Position Lead [...] R00.2 6. Atherosclerot ic heart disease of [place]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 with angina pectoris I25.119 7. Syncope R55 02/01/18 1335 <Electronically signed by Kim Pickard > Date Kim Pickard 02/02/18 0800<Electronically signed by Gurdeep Huang MD> Cosigner Signature: Date (if applicable) Gurdeep Huang MD CC: 27-Oct-2017 Venous Duplex Lower Extremity Result: Comments: See Note; NOTES: [facility] Cardiovascular Services [address] [place] [address] Venous Duplex US, Unilateral 10/27/17 0952 MR#: [id number] Acct: [id number] Name: IRIS HOU Rep #: [id number] : 1940 77 From: Alejandro Armendariz MD [...] Date Dictated: 10/27/17 0952 Date Transcribed: 10/27/171613 Foreign Clerk: Signed 15-Oct-2017 Pulmonary Visit Report Result: Comments: See Note; NOTES: [facility] [address] [place] [address] OFFICE VISIT Date of Service: 10/15/17 MR#: [id number] Acct: [id number] Name: IRIS STRINGER CH Rep #: [id number] : 1940 Provider: Glenna Anderson Age/Sex: 77/F Location: [facility] Status: Signed Assessment AND Plan 1. URMILA [...] Plan Detail Follow Up 3 Months (MIRNA) [facility] Hospital FU: Chief Complaint: Shortness of [...] body aches. She has not utilized any ilph-ups-txnsqev medications for her shortness of breath. 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 [id number] Electronically Signed: Ed Fink MD at 11:10 EST Tel [phone], Service support , CC: Minerva Vergara MD Foreign Clerk: Signed 06-Oct-2017 Office Visit Report Result: Comments: See Note; NOTES: [facility] [address] [place] [address] OFFICE VISIT Date of Service: 09/25/17 MR#: [id number] Acct: [id number] Patient: IRIS ARRIAGA Rep #: [id number] : 1940 Provider: Kim Pickard Age/Sex: 77/F Location: [facility] Status: Signed Comments Summary Comments: Single Chamber ICD Evaluation: Interrogation shows no VT/VF episodes since 06/17/17. Left pectoral pocket/incision w/o s/s of infection or erosion. Pt offers no cardiac complaints. Presenting rhythm shows NSR @ 92 bpm. SPRING ENCASER=<0.1%. Lead impedance, sensing and pace/sense thres hold remain stable. No parameter changes made. Counters cleared. Next f/u appt scheduled for in 3 mos. Device Device Date Interviewed: 09/25/17 Follow-up Location: in office Interview Reason: routine follow up Financial Sales Consultant: [employer] Name: Protecta VR Model: [id number] Serial #: [id number] Implant Date: 04/29/13 Year(s): 4 Implant Physician: [...] Incision well healed Leads Le ad #1 Financial Sales Consultant Lead 1: [employer] Model Lead 1: 5076 Serial# Lead 1: [id number] Date Implanted Lead 1: 09/03/04 Position Lead 1: RV Additional Details: pace/sense lead Lead #2 Financial Sales Consultant Lead 2: Fl marcus Model Lead 2: 6943 Serial# Lead 2: [id number] Date Implanted Lead 2: 11/18/00 Position Lead [...] Visit Report Result: Comments: See Note; NOTES: [facility] [address] [place] [address] OFFICE VISIT Date of Service: 09/11/17 MR#: [id number] Acct: [id number] Name: IRIS ARRIAGA Rep #: [id number] : 1940 Provider: Gurdeep Huang MD Age/Sex: 77/F Location: [facility] Status: Signed HPI 6 M FU: [...] that she was evaluated for such at [facility]. 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 She is due to see her manager of data at [employer] in October of this year. [...] artery disease) I25.10 Coronary Disease-Associated Artery/Lesion type: [place] artery Long-term use of high-risk medication Z79.899 [...] artery disease) I25.10 Coronary Disease-Associated Artery/Lesion type: [place] artery Long-term use of high-risk medication Z79.899 09/11/17 1716 <Electronically signed by Gurdeep Huang MD> Date Gurdeep Huang MD Cosigner Signature: Date ___ (if applicable) CC: Minerva Vergara MD 28-Jul-2017 Venous Duplex Lower Extremity Result: Comments: See Note; NOTES: [facility] Cardiovascular Services [address] [place] [address] Venous Duplex US, Unilateral 07/28/17 0942 MR#: [id number] Acct: [id number] Name: IRIS HOU Rep #: [id number] : 1940 77 From: Alejandro Armendariz MD [...] MD Date Dictated: 07/28/17941 Date Transcribed: 07/28/171751 Foreign Clerk: Signed 28-Jul-2017 CT ANGIO ABD AND PEL W/O AND W/DYE Result: Comments: See Note; NOTES: [facility] Imaging Services [address] [place] [address] CT ANGIO ABD AND PEL W/O AND W/DYE MR#: [id number] Acct: [id number] Name: IRIS ARRIAGA Rep #: [id number] : 1940 F 77 From: Apolinar Ansari DO PCP: Minerva Vergara MD Status: REG CLI Study: CT ANGIO ABD AND PEL W/O AND W/DYE Date of Exam: 07/28/17 Exam# [id number] Ordering Dr: Minerva Child i, MD STUDY: [...] Service support , CC: Minerva Vergara MD Foreign Clerk: Signed 19-Feb-2017 6 Minute Walk Test Result: Comments: See Note; NOTES: [facility] Pulmonary Services/Neurology [address] [place] [address] MR#: [id number] Acct: [id number] Name: IRIS ARRIAGA Rep #: [id number] : 1940 77 From: Jeremie Schultz MD Referring Dr: Bruno Barcenas D.O. Date: Ordering Dr: Sex: F C Location: PSN PSN 6 Minute Walk Test - 6 Minute Walk Test 6 Minute Walk Test: 6 Minute Walk Test PS N:6-Minute Walk Test Start: 02/19/17 12:50 Freq: Status: Active Document 02/19/17 12:50 FR (Rec: 02/19/17 12:53 FR [id number]) 6 Minute Walk Test Date Performed 02/19/17 [...] Date Dictated: 02/19/17 1553 Date Transcribed: 02/19/171552 Foreign Clerk: Jeremie Schultz Signed 03-Jan-2017 Abdomen/Pelvis WITH Contrast Result: Comments: See Note; NOTES: [facility] Imaging Services [address] [place] [address] Verdana 4d Abdomen/Pelvis WITH Contrast MR#: [id number] Acct: [id number] Name: JARON ARRIAGA Rep #: [id number] : 1940 F 76 From: Ed Fink MD PCP: Minerva Vergara MD Status: REG CLI Study: Abdomen/Pelvis WITH Contrast Date of Exam: 01/03/17 Exam# [id number] Ordering Dr: Minerva Bartlett MD STUDY: CT [...] Ed Fink MD at 13:03 EDT Tel [phone], Service support , CC: Minerva Vergara MD Foreign Clerk: Signed 01-Jan-2017 Pulmonary Function Report Comp Result: Comments: See Note; NOTES: [facility] Pulmonary Services/Neurology [address] [place] [address] Pulmonary Function Test (Comp) MR#: [id number] Acct: [id number] Name: CATHLEEN ARRIAGA Rep #: [id number] : 1940 76 From: Bruno Barcenas DO Referring Dr: Minerva Vergara MD Status: REG CLI Ordering Dr: Minerva Vergara MD Date: 12/31/16 Location: [facility] Sex: F C DATE OF SERVICE: [...] C: Referring Provider . T: NTS JOB: [id number] 01/01/17 1057 <Electronically signed by Christian Barcenas DO> Date Bruno Barcenas DO CC: Minerva Vergara MD; Bruno Barcenas D.O. Date Dictated: 12/31/16 160 Date Transcribed: 12/31/161600 Foreign Clerk: Signed 26-Dec-2016 Echocardiogram Complete Result: Comments: See Note; NOTES: [facility] Cardiovascular Services [address] [place] [address] Echo Complete 12/25/16 1357 MR#: [id number] Acct: [id number] Name: IRIS ARRIAGA Rep #: [id number] : 1940 76 From: Gurdeep Huang MD [...] Dictated: 12/25/16 1357 Date Transcribed: 12/26/16 09 Foreign Clerk: Signed 04-Dec-2016 Abd Inc Decub and/or Erect Result: Comments: See Note; NOTES: [facility] Imaging Services [address] [place] [address] Verdana 4d Abd Inc Decub and/or Erect MR#: [id number] Acct: [id number] Name: ARI ARRIAGA Jose Manuel Tucker Rep #: [id number] : 1940 F 76 From: Mele Brown MD PCP: Minerva Vergara MD Status: REG CLI Study: Abd Inc Decub and/or Erect Date of Exam: 12/04/16 Exam# [id number] Ordering Dr: Anita Quiñonez DO STUDY: X-RAY [...] Decub and/or Erect CC: Minerva Vergara MD; dIa Quiñonez DO Foreign Clerk: Signed 04-Dec-2016 CTA Chest W/WO Contrast Result: Comments: See Note; NOTES: [facility] Imaging Services [address] [place] [address] 4d CTA Chest W/WO Contrast MR#: [id number] Acct: [id number] Name: IRIS ARRIAGA Rep #: [id number] : 1940 F 76 From: Ed Fink MD PCP: Minerva Vergara MD Status: REG CLI Study: CTA Chest W/WO Contrast Date of Exam: 12/04/16 Exam# [id number] Ordering Dr: Ida Quiñonez DO STUDY: CTA [...] Megan Fink MD at 15:43 EDT Tel [phone], Service support , CC: Minerva Vergara MD; Ida Quiñonez DO Foreign Clerk: Signed 03-Dec-2016 Venous Duplex Lower Extremity Result: Comments: See Note; NOTES: [facility] Cardiovascular Services [address] [place] [address] Venous Duplex US - David Extrem 12/03/16 1553 MR#: [id number] Acct: [id number] Name: IRIS ARRIAGA Rep #: [id number] : 1940 76 From: Alejandro Armendariz MD [...] 12/03/16 1553 Da te Transcribed: 12/03/16 1850 Foreign Clerk: Signed 02-Dec-2016 Abdomen without IV Contrast Result: Comments: See Note; NOTES: [facility] Imaging Services [address] [place] [address] Verdana 4d Abdomen without IV Contrast MR#: [id number] Acct: [id number] Name: CAMILA ARRIAGA Rep #: [id number] : 1940 F 76 From: Moses Chase MD PCP: Minerva Vergara MD Status: REG CLI Study: Abdomen without IV Contrast Date of Exam: 12/02/16 Exam# [id number] Ordering Dr: Minerva Broussard MD STUDY: CT [...] diverticulitis. The abdominal wall is intact. A [place] umbrella filter is in place but 4 [...] left.. CT/Abdomen without IV Contrast IMPRESSION: A [place] umbrella filter in place with at least [...] Service support , CC: Minerva Vergara MD Foreign Clerk: Signed 31-Oct-2016 Abd Inc Decub and/or Erect Result: Comments: See Note; NOTES: [facility] Imaging Services [address] [place] [address] Verdana 4d Abd Inc Decub and/or Erect MR#: [id number] Acct: [id number] Name: ARI ARRIAGA Rep #: [id number] : 1940 F 76 From: Ed Fink MD PCP: Minerva Vergara MD Status: REG CLI Study: Abd Inc Decub and/or Erect Date of Exam: 10/31/16 Exam# [id number] Ordering Dr: Minerva Vergara MD STUDY: X-RAY [...] Ed Fink MD at 10:26 EDT Tel [phone], Service support [phone], CC: Minerva Vergara MD Foreign Clerk: Signed 31-Oct-2016 Chest PA and Lateral Result: Comments: See Note; NOTES: [facility] Imaging Services [address] [place] [address] Verdana 4d Chest PA and Lateral MR#: [id number] Acct: [id number] Name: IRIS ARRIAGA Re p #: [id number] : 1940 F 76 From: Ed Fink MD PCP: Minerva Vergara MD Status: REG CLI Study: Chest PA and Lateral Date of Exam: 10/31/16 Exam# [id number] Ordering Dr: Minerva Vergara MD S DY: [...] Ed Fink MD at 10:27 EDT Tel [phone], Service support [phone], CC: Minerva Vergara MD Foreign Clerk: Signed 26-Sep-2016 Dexa Bone Density Study (HP) Result: Comments: See Note; NOTES: [facility] Imaging Services [address] [place] [address] Verdana 4d Dexa Bone Density Study (HP) MR#: [id number] Acct: [id number] Name: JARON ARRIAGA Rep #: [id number] : 1940 F 76 From: Ed Fink MD PCP: Minerva Vergara MD Status: REG CL Study: Dexa Bone Density Study (HP) Date of Exam: 09/26/16 Exam# [id number] Ordering Dr: Minerva Bartlett MD STUDY: DUAL [...] Fink MD at 15:0 0 EST Tel [phone], Service support [phone], CC: Minerva Vergara MD Foreign Clerk: Signed 26-Sep-2016 SCREENING MAMM (CAD), BILAT Result: Comments: See Note; NOTES: [facility] Imaging Services [address] [place] [address] Verdana 4d SCREENING MAMM (CAD), BILAT MR#: [id number] Acct: [id number] Name: CAMILA ARRIAGA Rep #: [id number] : 1940 F 76 From: Ed Fink MD PCP: Minerva Vergara MD Status: REG CLI Study: SCREENING MAMM (CAD), BILAT Date of Exam: 09/26/16 Exam# [id number] Ordering Dr: Minerva Child i, MD MAMMOGRAPHY [...] delay biopsy of a clinically suspicious abnormality. [id number] Electronically Signed: Ed Fink MD at 7:48 EST Tel [phone], Service support [phone], CC: Minerva Vergara MD Foreign Clerk: Signed 09-Feb-2016 Operative Report Result: Comments: See Note; NOTES: [facility] Medical Records Department [address] [place] [address] Operative Report MR#: [id number] Acct: [id number] Name: CAMILA ARRIAGA Rep #: [id number] : 1940 76 From: Clifford Gifford MD [...] without difficulty to the cecum, identified by mesa grande's foot appearance, ileocecal valve and appendiceal orifice. [...] patient. Kamari Gifford MD T: NTS JOB: [id number] 02/09/16 0706 <Electronically signed by Clifford Gifford MD> Date Clifford Gifford MD Cosign er Signature (If Indicated): Date CC: Clifford Gifford; Minerva Vergara MD Date Dictated: 01/30/16 0833 Date Transcribed: 01/30/16832 Foreign Clerk: Signed 15-Nov-2015 Gallbladder Result: Comments: See Note; NOTES: [facility] Imaging Services [address] [place] [address] Verdana 4d Gallbladder MR#: [id number] Acct: [id number] Name: IRIS ARRIAGA Rep #: [id number] : 1940 F 75 From: Sofia Storey MD PCP: Minerva Vergara MD Status: REG ER Study: Gallbladder Date of Exam: 11/15/15 Exam# [id number] Ordering Dr: Jalil Nogueira MD STUDY: ULTRASOUND [...] MD at 21:57 EDT , Service support [phone], F ax [phone] CC: Minerva Vergara MD; Jalil Nogueira MD Foreign Clerk: Signed 15-Nov-2015 Abdomen/Pelvis WITH Contrast Result: Comments: See Note; NOTES: [facility] Imaging Services [address] [place] [address] Verdana 4d Abdomen/Pelvis WITH Contrast MR#: [id number] Acct: [id number] Name : IRIS ARRIAGA Rep #: [id number] : 1940 F 75 From: Sofia Storey MD PCP: Bonezzi MD,Minerva Status: REG ER Study: Abdomen/Pelvis WITH Contrast Date of Exam: 11/15/15 Exam# [id number] Order ing Dr: Jalil Nogueira MD STUDY: [...] MD at 20:10 EDT , Service support [phone], CC: Minerva Vergara MD; Jalil Nogueira MD Foreign Clerk: Signed 31-Oct-2015 Cerv Spine 4 or 5 Views Result: Comments: See Note; NOTES: [facility] Imaging Services [address] [place] [address] Verdana 4d Cerv Spine 4 or 5 Views MR#: [id number] Acct: [id number] Name: IRIS WRAY Rep #: [id number] : 1940 F 75 From: Alexey Stephens MD PCP: Minerva Vergara MD Status: REG CLI Study: Cerv Spine 4 or 5 Views Date of Exam: 10/31/15 Exam# [id number] Ordering Dr: Tiffanie Corcoran DO STUDY: X-RAY [...] a t 13:54 EDT , Service support [phone], RAD/Cerv Spine 4 or 5 Views IMPRESSION: Severe cervical spondylosis. Electronically Signed: Earl Stephens MD, FACR at 13:54 EDT , Service support [phone], CC: Tiffanie Saha DO; Minerva Vergara MD Foreign Clerk: Signed 28-Sep-2015 PT D/C Summary (1) Result: Comments: See Note; NOTES: [facility] [address] [place], [place] [address] Fax REHABILITATION SE RVICES DISCHARGE SUMMARY MR#: [id number] Acct: [id number] Name: IRIS ARRIAGA Rep #: [id number] : 1940 75 From: Kelvin Newman DPT, [...] please feel free to call me at [phone]. Thank you for the referral of this patient. Sincerely, Kelvin Newman <Electronically signed by Kelvin Newman DPT, OCS, CSCS> 09/28/15 0944 CC: Minerva Vergara MD; Nerissa Bhat EBG Signed 24-Aug-2015 PT Communication Result: Comments: See Note; NOTES: [facility] Physical Therapy [address] [place] [address] Fax REHABILITATION SE RVICES PROGRESS NOTE MR#: [id number] Acct: [id number] Name: IRIS ARRIAGA Rep #: [id number] : 1940 75 From: Kelvin Newman Referring Dr.: Nerissa Bhat Status: REG RCR Insurance: [employer] PPO ANTHEM PT Communication Note 08/24/15 Dear Mert Moore and Dr. Vergara, Thank you for the referral of [facility] and balance [facility]. I [...] - PT Result: Comments: See Note; NOTES: [facility] [address] [place] [address]. [address] [place] [address] Fax [facility] MR#: [id number] Acct: [id number] Name: IRIS ARRIAGA Rep #: [id number] : 1940 75 From: Kelvin Newman Referring [...] Duration: 4-6 Weeks - Subjective Fell at [employer] in May and hurt head. Then p assed out shortly thereafter went to ER and was dehydrated. Went to Dr. vergara a couple weeks ago and was sent to ER for low blood pressure. Spent a few days in hospital and found that the pig valve is thickening. Will go to [facility] later in month as Dr. Huang sent [...] to be FAXED BACK to us at [phone] for Medicare purp oses. Please let me know if there are questions or concerns regarding this plan of care. Physician Signature: Date: <Electron ically signed by Kelvin Newman > 08/17/15 0944 CC: Minerva Vergara MD; Nerissa Bhat EBG Signed For Medicare only, by signing this I certify the plan of care. Physicians Signature Date 09-Aug-2015 Brain/Head without Contrast Result: Comments: See Note; NOTES: [facility] Imaging Services [address] [place] [address] Verdana 4d Brain/Head without Contrast MR#: [id number] Acct: [id number] Name: IRIS ARRIAGA Rep #: [id number] : 1940 F 75 From: Robert Osborn MD PCP: Minerva Vergara MD Status: REG Study: Brain/Head without Contrast Date of Exam: 08/09/15 Exam# [id number] Ordering D r: Sneha Baptiste MD STUDY: [...] at 13:15 EST Tel , Service support [phone], CC: Minerva sierra MD; Sneha Baptiste MD Foreign Clerk: Signed 09-Aug-2015 Chest 1 View (Portable) Result: Comments: See Note; NOTES: [facility] Imaging Services [address] [place] [address] Verdana 4d Chest 1 View (Portable) MR#: [id number] Acct: [id number] Name: IRIS WRAY Rep #: [id number] : 1940 F 75 From: Robert Osborn MD PCP: Minerva Vergara MD Status: REG ER Study: Chest 1 View (Portable) Date of Exam: 08/09/15 Exam# [id number] Ordering Dr: Sneha Baptiste MD STUDY: X-RAY [...] at 12:43 EST Tel , Service support [phone], RAD/Chest 1 View (Portable) IMPRESSION: No acute pulmonary process, no interval change Electronically Signed: Josesito Osborn MD at 12:43 EST Tel , Service support [phone], CC: Minerva Vergara MD; Sneha Baptiste MD Foreign Clerk: Signed 20-Jul-2015 Chest PA and Lateral Result: Comments: See Note; NOTES: [facility] Imaging Services [address] [place] [address] Verdana 4d Chest PA and Lateral MR#: [id number] Acct: [id number] Name: IRIS ARRIAGA Rep #: [id number] : 1940 F 75 From: Ed Fink MD PCP: Minerva Vergara MD Status: REG CLI Study: Chest PA and Lateral Date of Exam: 07/20/15 Exam# [id number] Ordering Dr: Minerva Amezquita MD STUDY: X-RAY [...] Ed Fink MD at 13:14 EST Tel [phone], Service support [phone], RAD/Chest PA and Lateral IMPRESSION: No acute abnormality is seen. Electronically Signed: Ed Fink MD at 13:14 EST Tel [phone] , Service support [phone], CC: Minerva Vergara MD Foreign Clerk: Signed 06-Jun-2015 Brain/Head without Contrast Result: Comments: See Note; NOTES: [facility] Imaging Services [address] [place] [address] Verdana 4d Brain/Head without Contrast MR#: [id number] Acct: [id number] Name: IRIS ARRIAGA Rep #: [id number] : 1940 F 75 From: Ed Fink MD PCP: Minerva Vergara MD Status: REG ER Study: Brain/Head without Contrast Date of Exam: 06/06/15 Exam# [id number] Whiteside sarojing Dr: Kermit Verduzco MD STUDY: CT [...] Fink MD a t 16:13 EDT Tel [phone], Service support [phone], CC: Minerva Vergara MD; Kermit Verduzco MD Foreign Clerk: Signed 06-Jun-2015 Chest 1 View (Portable) Result: Comments: See Note; NOTES: [facility] Imaging Services [address] [place] [address] Verda 4d Chest 1 View (Portable) MR#: [id number] Acct: [id number] Name: IRIS WRAY Rep #: [id number] : 1940 F 75 From: Farhad Cedillo MD PCP: Minerva Vergara MD Status: REG ER Study: Chest 1 View (Portable) Date of Exam: 06/06/15 Exam# [id number] Ordering Dr: Kermit Verduzco MD STUDY: X-RAY [...] at 17:06 EDT Tel , Service support [phone], [place] ER #: [id number] RAD/Chest 1 View (Portable) IMPRESSION: 1. Left-sided bipolar pacemaker seen with leads appearing in good position. 2. Moderate cardiomegaly. 3. Status post sternotomy changes. 4. There is no evidence of infiltrate, atelectasis, or pleural fluid. Electronically Signed: Farhad Cedillo MD at 17:06 EDT Tel , Service support [phone], Fax CC: Minerva Vergara MD; Kermit Verduzco MD Foreign Clerk: Signed 06-Jun-2015 Pelvis 1 or 2 Views Result: Comments: See Note; NOTES: [facility] Imaging Services [address] [place] [address] Verdana 4d Pelvis 1 or 2 Views MR#: [id number] Acct: [id number] Name: IRIS ARRIAGA Rep #: [id number] : 1940 F 75 From: Ed Fink MD PCP: Minerva Vergara MD Status: REG ER Study: Pelvis 1 or 2 Views Date of Exam: 06/06/15 Exam# [id number] Ordering Dr: Kermit Verduzco MD STUDY: X-RAY [...] Ed Fink MD at 16:15 EDT Tel [phone], Service support [phone], RAD/Pelvis 1 or 2 Views IMPRESSION: Status post bilateral total hip replacement. Elect ronically Signed: Ed Fink MD at 16:15 EDT Tel [phone], Service support [phone], CC: Minerva Vergara MD; Kermit Verduzco MD Foreign Clerk: Signed 06-Jun-2015 Spine Cervical without Contras Result: Comments: See Note; NOTES: [facility] Imaging Services [address] [place] [address] Verdana 4d Spine Cervical without Contras MR#: [id number] Acct: [id number] Na me: IRIS ARRIAGA Rep #: [id number] : 1940 F 75 From: Ed Fink MD PCP: Minerva Vergara MD Status: REG ER Study: Spine Cervical without Contras Date of Exam: 06/06/15 Exam# [id number]: Kermit Verduzco MD STUDY: [...] Ed Fink MD at 16:15 EDT Tel [phone], Service support [phone], CC: Minerva Vergara MD; Kermit Verduzco MD Foreign Clerk: Signed 19-Apr-2015 Spine Lumbar without Contrast Result: Comments: See Note; NOTES: [facility] Imaging Services [address] [place], [place] [address] [place] [address] CAT Scan Report MR#: [id number] Acct: [id number] Name: IIRS ARRIAGA Rep #: [id number] : 1940 F 75 From: Tami Rodriguez MD PCP: Minerva Vergara MD Status: REG CLI Study: Spine Lumbar without Contrast Date of Exam: 04/19/15 Exam# [id number] Ordering Dr: Monica Mir, Out o. STUDY: [...] at 14:58 EDT Tel , Service support [phone], CC: Minerva Vergara MD; OUT OF TOWN DOCTOR Foreign Clerk: Signed 19-Apr-2015 Lumbar Myelogram Result: Comments: See Note; NOTES: [facility] Imaging Services [address] [place] [address] Radiology Report MR#: [id number] Acct: [id number] Name: IRIS ARRIAGA Rep #: [id number] : 1940 F 75 From: Tami Rodriguez MD PCP: Minerva Vergara MD Status: REG CLI Study: Lumbar Myelogram Date of Exam: 04/19/15 Exam# [id number] Ordering Dr: CRISTIAN COFFEY CLINICAL HISTORY : [...] at 15:12 EDT Tel , Service support [phone], RAD/Lumbar Myelogram IMPRESSI ON: There is severe spinal canal stenosis at L4-5. Electronically Signed: Jessy Rodriguez MD at 15:12 EDT Tel , Service support [phone], CC: Gina Vergara MD; CRISTIAN COFFEY Foreign Clerk: Signed 10-Apr-2015 Discharge Instruction Result: Comments: See Note; NOTES: [facility] Medical Records Department [address] [place] [address] Discharge Instruction 04/03/15 1440 MR#: [id number] Acct: [id number] Name: IRIS ARRIAGA Rep #: [id number] : 1940 75 From: Ellen Gilman MD [...] problems, contact your doctor. Call [facility] ([phone]) or report to the closest Emergency Room. Call 911 if necessary. 04/03/15 1441 <Electronically signed by Ellen Gilman MD> Date Ellen Gilman MD 04/10/15 0835<Electronically signed Juli Polanco MD> Cosigner Signature (If Indicated): Date Rickie Polanco MD CC: Minerva Vergara MD 10-Apr-2015 Discharge Instruction Result: Comments: See Note; NOTES: [facility] Medical Records Department [address] [place] [address] Discharge Instruction 04/03/15 1448 MR#: [id number] Acct: [id number] Name: IRIS ARRIAGA Rep #: [id number] : 1940 75 From: Rickie Polanco MD PCP: Minerva Vergara MD Status: DEP ER ED Disposition - Plan for ED Patient: Disposition: Home or Assisted Living C [facility] Complaint: Lower Extremity Injury Instructions: ED [...] problems, contact your doctor. Call [facility] ([phone]) or report to the closest Emergency Room. Call 911 if necessary. 04/10 0835 <Electronically signed by Rickie Polanco MD> Date Rickie Polanco MD Cosigner Signature (If Indicated): Date CC: Minerva Vergara MD 10-Apr-2015 Emergency Department Summary Result: Comments: See Note; NOTES: [facility] Medical Records Department [address] [facility] [place] [address] Emergency Department Summary MR#: [id number] Acct: [id number] Name: IRIS VALENCIA Rep #: [id number] : 1940 75 From: Ellen Gilman MD [...] acute. Ellen Gilman MD T: NTS JOB: [id number] 04/05/15 0836 <Electronically signed by Ellen Gilman MD> Date Ellen Gilman MD 04/10/15 0835 <Electronically signed by Natanael Polanco MD> Cosigner Signature (If Indicated): Date Rickie Polanco MD CC: Minerva Vergara MD Date Dictated: 04/03/151454 Date Transcribed: 04/03/151454 Foreign Clerk: Signed 04-Apr-2015 12 Lead Electrocardiogram Result: Comments: See Note; NOTES: [facility] Cardiovascular Services [address] [place] [address] 12 Lead EKG 04/03/151350 MR#: [id number] Acct: [id number] Name: IGGY ARRIAGA Rep #: [id number] : 1940 75 From: Gurdeep Huang MD [...] for LVH Abnormal ECG Confirmed by REINA TIARDO, GURDEEP ([id number]), business editor CAROLEE MARIEE ([id number]) on 04/04/2015 10:27:52 AM Referred By: VALENTINA Confirmed By:GURDEEP HUANG MD 04/04/15 1027 Date Gurdeep Huang MD CC: Minerva Vergara MD Date Dictated: 04/03/151350 Date Transcribed: 04/03/151350 Foreign Clerk: Signed 03-Apr-2015 Femur 2 Views Result: Comments: See Note; NOTES: [facility] Imaging Services [address] [place] [address] Radiology Report MR#: [id number] Acct: [id number] Name: IRIS ARRIAGA Rep #: [id number] : 1940 F 75 From: Ed Fink MD PCP: Minerva Vergara MD Status: REG ER Study: Femur 2 Views Date of Exam: 04/03/15 Exam# [id number] Ordering Dr: Rickie Polanco MD STUDY: X- [...] Ed Fink MD at 12:59 EDT Tel [phone], Service support [phone], RAD/ Femur 2 Views IMPRESSION: No acute abnormality is seen. Electronically Signed: Ed Fink MD at 12:59 EDT Tel [phone], Service support [phone], CC: Minerva Vergara MD; Rickie Polanco MD Foreign Clerk: Signed 03-Apr-2015 Chest PA and Lateral Result: Comments: See Note; NOTES: [facility] Imaging Services [address] [place] [address] Radiology Report MR#: [id number] Acct: [id number] Name: IRIS ARRIAGA Rep #: [id number] : 1940 F 75 From: Ed Fink MD PCP: Minerva Vergara MD Status: REG ER Study: Chest PA and Lateral Date of Exam: 04/03/15 Exam# [id number] Ordering Dr: Ellen Gilman MD STUD Y: X-RAY CHEST REASON FOR EXAM: Female, 75 years old. Chest pain and chest tightness. TECHNIQUE: AP and lateral views of the chest. COMPARISON: Comparison is made with prior examination dated [facility]br [facility] 2014. FINDINGS: There is blunting of [...] Ed Fink MD at 13:05 EDT Tel [phone], Service support [phone], Fax RAD/Chest PA and Lateral IMPRESSION: Mild degree of linear scarring at the lung bases and blunting of both costophrenic angles. Electronically Signed: Ed ledezma MD at 13:05 EDT Tel [phone], Service support [phone], CC: Ellen Gilman MD; Minerva Vergara MD Foreign Clerk: Signed 27-Mar-2015 Abd Inc Decub and/or Erect Result: Comments: See Note; NOTES: [facility] Imaging Services [address] [place] [address] Radiology Report MR#: [id number] Acct: [id number] Name: IRIS ARRIAGA Rep #: [id number] : 1940 F 75 From: Tylor Guzman DO PCP: Minerva Vergara MD Status: REG CLI Study: Abd Inc Decub and/or Erect Date of Exam: 03/27/15 Exam# [id number] Ordering Dr: Ida Quiñonez DO STUDY: X- [...] Guzman DO at 18:34 EDT Te l [phone], Service support [phone], 0093 RAD/Abd Inc Decub and/or Erect IMPRESSION: No acute abdominal pathology is noted. Electronically Signed: Tylor Guzman DO at 18:34 EDT Tel [phone], Service support [phone], CC: Minerva Vergara MD; Ida Quiñonez DO Foreign Clerk: Signed 20-Mar-2015 PT Discharge Summary Result: Comments: See Note; NOTES: [facility] Physical Therapy Health[address] [place] [address] Fax REHABILITATION SERVICES DISCHARGE SUMMARY MR#: [id number] Acct: [id number] Name: IRIS ARRIAGA Rep #: [id number] : 1940 75 From: Kelvin Newman Referring [...] program. Kelvin Newman, PT T: NTS JOB: [id number] <Electronically signed by Kelvin Newman > 03/20/15 0648 CC: Signed 25-Jan-2015 Chest PA and Lateral Result: Comments: See Note; NOTES: [facility] Imaging Services [address] [place] [address] Radiology Report MR#: [id number] Acct: [id number] Name: IRIS ARRIAGA Rep #: [id number] : 1940 F 75 From: Apolinar Ansari DO PCP: Minerva Vergara MD Status: REG CLI Study: Chest PA and Lateral Date of Exam: 01/25/15 Exam# [id number] Ordering Dr: Gurdeep Huang MD STUD Y: [...] at 5:42 EDT Tel , Service support [phone], RAD/Chest PA and Lateral IMPRESSION: Very minimal left basilar atel ectasis. Otherwise, no acute process. Electronically Signed: Apolinar DO Elan at 5:42 EDT Tel , Service support [phone], CC: Minerva Vergara MD; Gurdeep Huang MD Foreign Clerk: Signed 24-Jan-2015 Pulmonary Function Report Comp Result: Comments: See Note; NOTES: [facility] Pulmonary Services/Neurology [address] [place] [address] Pulmonary Function Test (Comp) MR#: [id number] Acct: [id number] Name: TANISHA REDIRIS Caitlin Rep #: [id number] : 1940 75 From: Jeremie Schultz MD [...] MD C C: Gurdeep Huang MD T: [facility] JOB: [id number] SPIROMETRY Ref ULN/LLN Pre Pre Post Post [...] MD Date Dictated: 01/19/151645 Date Transcribed: 01/19/151645 Foreign Clerk: Signed 19-Jan-2015 Inital Evaluation - PT Result: Comments: See Note; NOTES: [facility] Physical Therapy [facility] [facility] [place] [address] Fax REHABILITATION SERVICES INITIAL EVALUATION MR#: [id number] Acct: [id number] Name: IRIS ARRIAGA Rep #: [id number] : 1940 75 From: Kelvin Newman Referring [...] to be FAXED BACK to us at [phone] for Medicare purposes. Please let me know if there are questions or concerns regarding this plan of care. & amp;#60;Electronically signed by Kelvin Newman > 01/19/15 0932 CC: EL Signed For Medicare only, by signing this I certify the plan of care. Physicians Signature Date 10-Jan-2015 ELECTROCARDIOGRAM, COMPLETE (ECG) (26296) Result: [MEASUREMENTS ANALYSIS] Date of Test: 08/09/2015 10:29:14; Heart Rate: 78; WI Interval: 230; QRS: 114; QT Interval: 438; Corrected QT Interval (QTc): 469; P Wave Jamieson: 69; QRS Wave Jamieson: -7; T Wave Jamieson : 22; Blood Pressure: 140/90 [ECG DIAGNOSTIC STATEMENTS] Date of Test: 08/09/2015 10:29:14; Summary: Sinus Rhythm -First degree A-V block -Frequent pvcs - ventricular bigeminy Viridiana = 230- Nonspecific T-abnormality. ABNORMAL [MEASUREMENTS ANALYSIS] Date of Test: 08/09/2015 10:29:10; Heart Rate: 78; WI Interval: 230; QRS: 114; QT Interval: 438; Corrected QT Interval (QTc): 469; P Wave Jamieson: 69; QRS W [address] Jamieson: -7; T Wave Jamieson: 22; Blood Pressure: 140/90 [ECG DIAGNOSTIC STATEMENTS] Date of Test: 08/09/2015 10:29:10; Summary: Sinus Rhythm -First degree A-V block -Frequent pvcs -ventricular bigeminy Viridiana = 230- Nonspecific T- abnormality. ABNORMAL 05-Jan-2015 PT Discharge Summary Result: Comments: See Note; NOTES: [facility] Physical Therapy [facility] [facility] [place] [address] Fax REHABILITATION SERVICES DISCHARGE SUMMARY MR#: [id number] Acct: [id number] Name: IRIS ARRIAGA Rep #: [id number] : 1940 74 From: Kelvin Newman Referring [...] program. Kelvin Newman, PT T: NTS JOB: [id number] <Electronically signed by Kelvin Newman > 01/05/15 0931 CC: Signed 24-Nov-2014 Inital Evaluation - PT Result: Comments: See Note; NOTES: [facility] Physical Therapy [facility] [facility] [place] [address] Fax REHABILITATION SERVICES INITIAL EVALUATION MR#: [id number] Acct: [id number] Name: IRIS ARRIAGA Rep #: [id number] : 1940 74 From: Kelvin Newman Referring [...] is sleepin g well. She is a [employer] member here at [employer], but has not worked out here much [...] heat. Kelvin Newman, PT T: LORI JOB: [id number] <Electronically signed by Kelvin Newman > 11/24/14 0940 CC: Signed For [facility] only, by signing this I certify the plan of care. Physicians Signature Date 04-Nov-2014 Abdomen Single View Result: Comments: See Note; NOTES: [facility] Imaging Services [address] [place] [address] Radiology Report MR#: [id number] Acct: [id number] Name: IRIS ARRIAGA Rep #: [id number] : 1940 F 74 From: Ed Fink MD PCP: Minerva Vergara MD Status: REG CLI Study: Abdomen Single View Date of Exam: 11/04/14 Exam# [id number] Ordering Dr: Minerva Vergara MD STUDY : [...] Ed Fink MD at 14:10 EDT Tel [phone], Service support [phone], Fax RAD/Abdomen Single View IMPRESSION: Moderate amount of fecal material is seen throughout the colon. Electronically Signed: Ed Fink MD at 14: 10 EDT Tel [phone], Service support [phone], CC: Minerva Vergara MD Foreign Clerk: Signed 04-Nov-2014 Shoulder min 2 Views Result: Comments: See Note; NOTES: [facility] Imaging Services [address] [place] [address] Radiology Report MR#: [id number] Acct: [id number] Name: IRIS ARRIAGA Rep #: [id number] : 1940 F 74 From: Ed Fink MD PCP: Minerva Vergara MD Status: REG CLI Study: Shoulder min 2 Views Date of Exam: 11/04/14 Exam# [id number] Ordering Dr: Minerva Vergara MD STUD Y: [...] Ed Fink MD at 14:11 EDT Tel [phone], Service support [phone], CC: Minerva Vergara MD Foreign Clerk: Signed 21-Oct-2014 Echocardiogram Complete Result: Comments: See Note; NOTES: [facility] Cardiovascular Services [address] [place] [address] Echo Complete 10/19/14 1314 MR#: [id number] Acct: [id number] Name: CATHLEEN ARRIAGA Rep #: [id number] : 1940 74 From: Gurdeep Huang MD [...] Date Dictated: 10/19/14 1314 Date Transcribed: 10/19/141740 Foreign Clerk: Signed 23-Sep-2014 12 Lead Electrocardiogram Result: Comments: See Note; NOTES: [facility] Cardiovascular Services [address] [place] [address] 12 Lead EKG 09/22/14 1440 MR#: [id number] Acct: [id number] Name: JARON ARRIAGA Rep #: [id number] : 1940 74 From: Peewee Cotto MD [...] Abnormal ECG Confirmed by PEEWEE COTTO ([id number]), business editor CAROLEE MARIEE ([id number]) on 09/23/2014 2: 44:4 7 PM Referred By: TRAV Confirmed By:PEEWEE COTTO 09/23/14 1444 Date Peewee Cotto MD CC: Minerva Vergara MD Date Dictated: 09/22/14 1440 Date Transcribed: 09/22/14 144 Foreign Clerk: Signed 22-Sep-2014 Discharge Instruction Result: Comments: See Note; NOTES: [facility] Medical Records Department [address] [place] [address] Discharge Instruction 09/22/14 1616 MR#: [id number] Acct: [id number] Name: IRIS ARRIAGA Rep #: [id number] : 1940 74 From: Kermit Verduzco MD PCP: Minerva Vergara MD Status: [facility] ER ED Disposition - Plan for [...] Department Summary Result: Comments: See Note; NOTES: [facility] Medical Records Department [address] [place] [address] Emergency Department Summary MR#: [id number] Acct: [id number] Name: IRIS ARRIAGA Rep #: [id number] : 1940 74 From: Kermit Verduzco MD PCP: Minerva Vergara MD Status: [facility] ER DATE OF SERVICE: 09/22/2014 CHIEF [...] stood up quickly and went over to animal geneticist, 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 She [...] Discharge. Kermit Verduzco MD T: NTS JOB: [id number] 09/22/14 3800 <Electronically signed by Kermit Verduzco MD> Date Kermit Verduzco MD CC: Minerva Vergara MD Date Dictated: 09/22/141614 Date Transcribed: 09/22/141614 Foreign Clerk: Signed 22-Sep-2014 Chest PA and Lateral Result: Comments: See Note; NOTES: [facility] Imaging Services [address] [place] [address] Radiology Report MR#: [id number] Acct: [id number] Name: IRIS ARRIAGA Rep #: [id number] : 1940 F 74 From: Ed Fink MD PCP: Minerva Vergara MD Status: REG ER Study: Chest PA and Lateral Date of Exam: 09/22/14 Exam# [id number] Ordering Dr: Kermit Verduzco MD ROWAN DY: [...] CC: Minerva Vergara MD; Kermit Verduzco MD Foreign Clerk: Signed Family History Unknown Family Member Name [...] Status: 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[employer] Status: Active Exercise History Comments: Exercises occasionally [...] kg/m2 Body Surface Area Calculated 1.97 m2 62-Kcf-008101:15 Comments: sitting- spo2 on 2L- 89% P66 [...] Panel, Basic Comments: PATIENT NOT FASTINGPERFORMED BY: [facility] CampusPewrqv7476 [facility] [id number] ([id number]) Calcium 9.4 mg/dL (Normal) Range: 8.7-10.3 Carbon [...] 8-27 Glucose 72 mg/dL (Normal) Range: 65-99 96-Uxf-46439:13 Pathology Report Comments: PERFORMED BY: CYCIN [facility] [place] Tayd4199 [facility] [id number] BY: KWCYT [facility] [place] Cyto Gkatv93487 [facility] [id number] Clinical Information: [id number] See MATER Comments: Material submitted: .ABDOMINAL BIOPSYClinical [...] ENTIRELY SUBMITTEDIN ONE CASSETTE.BCO/SMIPathologist provided ICD-10:D21.4, L82.1CPT .127066 59-Aar-325129:35 Comprehensive Metabolic Profil Comments: [facility] [address] [place], [place], [address] GAP 8 (Normal) Range: 5-15 CO2 33.0 mmol/L (Abnormal) Range: 21.0-32.0 CL 95 mmol/L (Abnormal) Range: 98-107 K 3.6 mmol/L (Normal) Range: 3.5-5.1 NA 136 mmol/L (Normal) Range: 136-145 T BILI 0.70 mg/dL (Normal) Range: 0.20-1.00 ALT 23 U/L (Normal) Range: 13-56 Comments: Please note revised ALT reference range kgaozseuh95/28/2018. ALK P 79 U/L (Normal) Range: 45-117 [...] Comments: Please note revised GLUCOSE reference range ghgpmmusc64/02/2018. 43-Eix-240024:35 Phosphorus Comments: [facility] [address] [place], [place], [address] PHOS 4.0 mg/dL (Normal) Range: 2.5-4.9 01-Thn-466456:35 Uric Acid Comments: [facility] [address] [place], [place], [address] URIC 10.9 mg/dL (Abnormal) Range: 2.6-6.0 Comments: The drugs N-Acetylcysteine and Metamizole may falselydepress this assay. 20-Eut-888498:19 Metabolic Panel, Comments: fax a copy to Dr. Tucker [phone] Huang [phone]; A courtesy copy of this report has been sent [phone], .PATIENT NOT FASTINGPERFORMED BY: [facility] [place] bl6388 Jyotsna Clements ([address]) [place] [id number] Information: HARD DRAW/BUTTERFLY ALT (SGPT) 19 [iU]/L [...] Glucose, Serum 97 mg/dL (Normal) Range: 65-99 28-Zxo-817503:56 Basic Metabolic Profile (BMP) Comments: Order Date: 08/07/17Order Info: 0667-1 - BMPComments: now stat and prnWThe Surgical Hospital [facility]woods [address] [place], [place], [id number] GAP 8 (Normal) Range: 5-15 CO2 29.0 [...] 7-18 GLU 80 mg/dL (Normal) Range: 70-110 43-Zsi-334380:23 CREATININE FINGERSTICK Comments: [facility] LaboratoryPoint of [address] [place], [place] [address] CREATININE WB 1.3 mg/dL (Abnormal) Range: 0.55-1.02 11-Sep-20171:20 CBC WITH MANUAL DIFF Comments: PATIENT NOT FASTINGPERFORMED BY: [facility] Bwzhvv3929 [facility] [id number] Information: NURSE DRAW (15227) Immature Grans (Abs) 0.0 {x10E3/uL} (Normal) Range: [...] Panel, Comprehensive Comments: PATIENT NOT FASTINGPERFORMED BY: [facility] CampusJmtwyv6098 [facility] [id number] (70854) ALT (SGPT) 11 [iU]/L (Normal) Range: 0-32 [...] 101 mg/dL (Abnormal) Range: 65-99 11-Sep-20171:20 URINALYSIS (92427) Comments: PATIENT NOT FASTINGPERFORMED BY: [facility] CampusGkqtjw5216 [facility] [id number] Microscopic Examination MICNIP (Normal) Comments: Microscopic not indicated and not performed. Nitrite, Urine Negative (Normal) Urobilinogen,Semi-Qn 1.0 mg/dL (Normal) Range: 0.2-1.0 Bilirubin Negative (Normal) Occult Blood Negative (Normal) Ketones Negative (Normal) Glucose Negative (Normal) Protein Trace (Normal) WBC Esterase Negative (Normal) Appearance Clear (Normal) Urine-Color Yellow (Normal) pH 7.0 (Normal) Range: 5.0-7.5 Specific [place] 1.018 (Normal) Range: 1.005-1.030 1-Gbh-761410:34 Basic Metabolic Profile (BMP) Comments: [facility] [address] [place], [place], [address] GAP 10 (Normal) Range: 5-15 CO2 26.0 [...] 7-18 GLU 92 mg/dL (Normal) Range: 70-110 34-Jky-952556:03 Basic Metabolic Profile (BMP) Comments: Order Date: 05/01/17Order Info: 0667-1 - *BMPComments: Reason:[facility] [address] [place], [address] GAP 5 (Normal) Range: 5-15 CO2 28.0 [...] 7-18 GLU 64 mg/dL (Abnormal) Range: 70-110 11-Qmr-319026:16 Renal function Panel (45502) Comments: PATIENT NOT FASTINGPERFORMED BY: [facility] CampusIcxhhq0824 [facility] [id number] Albumin, Serum 4.3 g/dL (Normal) Range: 3.5-4.8 [...] Glucose, Serum 91 mg/dL (Normal) Range: 65-99 46-Vnl-10321:15 Urinalysis, Complete Comments: Order Date: 03/31/17How was Urine Obtained? ICE CREAM VENDOR TO [facility] [address] [place], [address] MUCUS, URINE 0 SEEN {/hpf} [...] CLARITY Sl. Cloudy (Normal) COLOR Yellow (Normal) 94-Sxc-20206:45 Lactic Acid Comments: Yes/No query for Sepsis Lactate Rule [facility] [address] [place], [address] LACTIC ACID 0.8 mmol/L (Normal) Range: 0.4-2.0 :39 BNP,B-Type NATRIURETIC PEPTIDE Comments: [facility] [address] [facility] [place], [address] B-TYPE HUMBLE PEP 1017.0 pg/mL (Abnormal) Range: 0-100 47-Nmn-17010:39 CBC W/Diff, Automated Comments: [facility] [address] [place], [address] ANISO 1+ (Normal) Absolute Lymph [...] 4.2-5.4 WBC 13.6 K/mm3 (Abnormal) Range: 4.4-11.0 27-Hjg-96633:39 Comprehensive Metabolic Profil Comments: 'TROP' Serial specimen #1, #2, #3, or #4: [facility] [address] [place], [address] GAP 8 (Normal) Range: 5-15 [...] Serial specimen #1, #2, #3, or #4: 1[facility] [address] [place], [place], [address] TROPONIN-I 0.06 ng/mL (Normal) Comments: TROPONIN-I EXPECTED VALUES <0.05 NEGATIVE 0.06 - 0.59 AT RISK OF NC > OR = 0.60 SUGGEST NC :03 Bedside Glucose Comments: [facility] LaboratoryPoint of Pots[address] [place] [address] BEDSIDE GLU 146 mg/dL (Abnormal) Range: 70-110 Comments: MANAGEMENT OF PATIENT CARE PER NURSING PROTOCOL 95-Bqg-913520:25 Vitamin D,25 Hydroxy Comments: Order Date: 01/17/17Order Info: 0788-1 - *Hepatic Function Panel3 ORDERING DOCTORS:REINA REID ORDERED: LIVER LIPIDDR.CAITLIN ORDERD: BMPMARY CIESA ORDERED: TSH, VITD, O2WNbojczk [facility] pital Labora [address] [place], [address] Vitamin D 25-OH 35.2 ng/mL (Normal) Comments: Vitamin D 25(OH) Status Range Deficiency <20 ng/mL (50nmol/L) Insuffciency 20 - 30 ng/mL (50 - 75 nmol/L) Sufficiency 30 - 100 ng/mL (75 - 250 nmol/L) Toxicity >100 ng/mL (>250 nmol/L) 08-Cbu-508467:20 Basic Metabolic Profile (BMP) Comments: Order Date: 01/17/17Order Info: 0788-1 - *Hepatic Function Panel3 ORDERING DOCTORS:REINA REID ORDERED: LIVER LIPIDDR.CAITLIN ORDERD: BMPMARY CIESA ORDERED: TSH, VITD, N9IZkvic Date: 01/17/17Order Info: [id number] - *Lipid Profile CC PCPComments: 12 hours fasting, may have water.[facility] [address] [place], [address] GAP 6 (Normal) Range: 5-15 CO2 31.0 [...] 7-18 GLU 109 mg/dL (Normal) Range: 70-110 68-Qzw-955996:20 Lipid Profile Comments: Order Date: 01/17/17Order Info: 0788- 1 - *Hepatic Function Panel3 ORDERING DOCTORS:REINA REID ORDERED: LIVER LIPIDDR.NOVY ORDERD: BMPMARY CIESA ORDERED: TSH, VITD, I4VOpvkc Date: 01/17/17 Order Info: 30599-6 - *Lipid Profile CC PCPComments: 12 hours fasting, may have water.[facility] [address] [place], [place], [address] VLDL 20 mg/dL (Normal) Range: 5-40 LDL [...] 200-240 mg/dL Borderline >240 mg/dL High Risk 33-Oxa-929858:20 Liver Profile Comments: Order Date: 01/17/17Order Info: 0788- 1 - *Hepatic Function Panel3 ORDERING DOCTORS:REINA REID ORDERED: LIVER LIPIDDR.NOVY ORDERD: BMPMARY CIESA ORDERED: TSH, VITD, B0CAyrfg Date: 01/17/17 Order Info: 37541-1 - *Lipid Profile CC PCPComments: 12 hours fasting, may have water.[facility] [address] [place], [place], [address] D BILI 0.24 mg/dL (Normal) Range: 0.00-0.30 T BILI 0.60 mg/dL (Normal) Range: 0.20-1.00 ALT 27 U/L (Normal) Range: 12-78 ALK P 84 U/L (Normal) Range: 45-117 AST 27 U/L (Normal) Range: 15-37 GLOB 3.7 g/dL (Abnormal) Range: 2.3-3.5 ALB 3.8 g/dL (Normal) Range: 3.4-5.0 T PROT 7.5 g/dL (Normal) Range: 6.4-8.2 36-Cmr-650744:20 T4 Free Direct Comments: Order Date: 01/17/17Order Info: 0788- 1 - *Hepatic Function Panel3 ORDERING DOCTORS:REINA REID ORDERED: LIVER LIPIDDR.NOVY ORDERD: BMPYUDYY CIGLENYSA ORDERED: TSH, VITD, H4XIcbxv Date: 01/17/17 Order Info: 43831-3 - *Lipid Profile CC PCPComments: 12 hours fasting, may have water.[facility] [address] [place], [place], [address] T4 FREE DIRECT 1.51 ng/dL (Abnormal) Range: 0.76-1.46 02-Mjc-776664:20 Thyroid Stim Hormone (TSH) Comments: Order Date: 01/17/17Order Info: 0788-1 - *Hepatic Function Panel3 ORDERING DOCTORS:REINA REID ORDERED: LIVER LIPIDDR.NOVY ORDERD: BMPMARY CIESA ORDERED: TSH, VITD, R0BKbhdo Date: 01/17/17Order Info: 61065-4 - *Lipid Profile CC PCPComments: 12 hours fasting, may have water.[facility] [address] [place], [phone] TSH 3.02 {uIU/mL} (Normal) Range: 0.358-3.74 15-Qbq-715672:00 Pathology Report Comments: PERFORMED BY: [facility] Yteow45143 [facility] [id number] BY: [facility] Dermatopathology [address] [facility] [address] [id number] Information: [id number] See MATER Comments: Material submitted: .SHAVE BIOPSY OF RIGHT ABDOMENClinician provided ICD-10:L82.1Clinical history: . Note (Normal) Diagnosis:BENIGN VERRUCAL KERATOSIS.02/08/2017Electronically signed: .Gege Reece MD, DermatopathologistGross description: .SUBMITTED IN FORMALIN LABELED IRIS ARRIAGA AND IS DESIGNATEDRIGHT ABDOMEN IS A FRAGMENT OF FERGUSON TISSUE THAT MEASURES 1.4 X .8X .3 CM. THE MARGINS ARE INKED BLUE. THE SPECIMEN IS TRISECTEDAND SUBMITTED IN TOTO.XJW/BXSPathologist provided ICD-10:D23.5CPT .998697 28-Fnz-119368:12 Basic Metabolic Profile (BMP) Comments: Order Date: 01/15/17Order Info: 0667-1 - *BMPComments: Reason:[facility] [address] [place], [address] GAP 5 (Normal) Range: 5-15 CO2 32.0 [...] 7-18 GLU 82 mg/dL (Normal) Range: 70-110 4-Obi-891118:04 Basic Metabolic Profile (BMP) Comments: Order Date: 01/08/17Order Info: 0667-1 - *BMPComments: Reason: BMP: [facility] [address]bm[address] [place], [address] GAP 11 (Normal) Range: 5-15 CO2 28.0 [...] <126 mg/dLsuggests IMPAIRED HOMEOSTASIS per A.D.A. criteria. 82-Wfo-557143:28 Lipid Profile Comments: Order Date: 06/18/16Order Info: 0788- 1 - *Hepatic Function PanelLIVER AND LIPID WERE ORDERED BY INE LEVEL ORDERED BY Date: 06/18/16Order Info: 21636-0 - *Lipid Profi le CC PCPComments: 12 hours fasting, may have water.[facility] [address] [place], [place], [address] VLDL 14 mg/dL (Normal) Range: 5-40 LDL [...] 200-240 mg/dL Borderline >240 mg/dL High Risk 97-Rhi-142603:28 Liver Profile Comments: Order Date: 06/18/16Order Info: 0788- 1 - *Hepatic Function PanelLIVER AND LIPID WERE ORDERED BY ATININE LEVEL ORDERED BY Date: 06/18/16Order Info: 90841-2 - *Lipid Profi le CC PCPComments: 12 hours fasting, may have water.[facility] [address] [place], [place], [address] D BILI 0.48 mg/dL (Abnormal) Range: 0.00-0.30 T BILI 1.10 mg/dL (Abnormal) Range: 0.20-1.00 ALT 62 U/L (Normal) Range: 12-78 ALK P 94 U/L (Normal) Range: 45-117 AST 59 U/L (Abnormal) Range: 15-37 GLOB 3.3 g/dL (Normal) Range: 2.3-3.5 ALB 3.7 g/dL (Normal) Range: 3.4-5.0 T PROT 7.0 g/dL (Normal) Range: 6.4-8.2 20-Owh-655108:28 Serum Creatinine AND GFR Comments: Order Date: 06/18/16Order Info: 0788-1 - *Hepatic Function PanelLIVER AND LIPID WERE ORDERED BY ATININE LEVEL ORDERED BY Date: 06/18/16Order Info: 03612-1 - *Lipid i ashley SOLOMON PCPComments: 12 hours fasting, may have water.[facility] [address] [place], [place], [address] EST GFR - AA 52 mL/min (Abnormal) Comments: GFR Calc EST GFR 43 mL/min (Abnormal) Comments: Non- GFR Calc CREAT,SERUM 1.29 mg/dL (Abnormal) Range: 0.55-1.02 Comments: The validity of the calculated GFR AND GFRAA in patients over70 years has not been determined. Clinical correlation isessential. 18-Nun-900792:36 Anticardiolipin IgA,G,M Comments: [facility] (refer to report [...] Positive: >20 - 80 High Positive: >80 99-Ujh-396402:36 Comprehensive Metabolic Profil Comments: [facility] [address] [place], [place], [address] GAP 4 (Abnormal) Range: 5-15 CO2 26.0 [...] 7-18 GLU 103 mg/dL (Normal) Range: 70-110 76-Ydg-157926:36 Fact V Leiden Mutation Comments: [facility] (refer to report for specific site)refer to report for address and phone number COMMENT (Normal) Comments: Comment:Genetic counselors are available for health care providersto discuss results at [phone]).Methodology:DNA analysis of the Factor V gene was performed byallele-specific PCR. The d iagnostic sensitivity andspecificity is >99% for both. Molecular-based testing ishighly accurate, but as in any laboratory test, diagnosticerrors may occur. All test results must be combined withclin ical information for the most accurate interpretation.This test was developed and its performance characteristicsdetermined by [facility]. It has not been cleared or approvedby the Food and Drug Administra tion.References:Nicholas Armijo (1995). Clin Lab Med 16:169-186.Raul Cano, PhD, Cinthya May, PhD, Wilbur Clemente, PhD, Marly Wen MTammiSTammi, PhD, Lilia Way, PhD, Kaia Reynaga, PhD, Richard Juarez PhD, [facility] FACTOR V LEIDEN (Normal) Comments: Result: [...] in the workup for venous thrombosis include [id number] mutation in the factor II (prothrombin) gene,protein S and C deficiency, and antithrombin deficiencies.Anticardiolipin antibody and lupus 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 an alysismay be appropriate for certain patients, as well ashomocysteine levels.Contact your local [facility] for information on how to orderadditional testing if desired. 51-Wpz-187920:36 Factor II, DNA Analysis Comments: [facility] (refer to report for specific site)refer to report for address and phone number COMMENT (Normal) Comments: Additional Information:Genetic Counselors are available for health care providersto discuss results at [phone]).Methodology:DNA analysis of the Factor II gene was [...] Drug Administration.Poort SR, et al. Blood. 1996; 88:6441-9124.oRbert GUTIÉRREZ. Circulation. 2004; 110:e15-e18.Stanislav I, et al. Arterioscler Thromb Vasc Biol. 1999;19:700-703.Raul Cano, Ph D, Cinthya May, PhD, Wilbur Clemente, PhD, Marly Wen M.S., PhD, Lilia Way, PhD, Kaia Reynaga, PhD, Richard Juarez, PhD, [facility] COMMENT (Normal) Comments: Comment:A point mutation (Q77521L) in the factor II (prothrombin)gene is the [...] individual mutations. This assay detects onlythe prothrombin X97500X mutation and does not measuregenetic abnormalities elsewhere in the genome. Otherthrombotic r isk factors may be pursued through systematicclinical laboratory analysis. These factors include ivyQ044X (Leiden) mutation in the Factor V gene, plasmahomocysteine levels, as well as testing for defici encies ofantithrombin III, protein C and protein S. FACTOR II,DNA (Normal) Comments: Factor II, DNA Analysis NEGATIVE No mutation identified. 09-Skh-718546:36 Partial Thromboplast Time Comments: [facility] [address] [place], [place], [address] PTT 28.3 s (Normal) Range: 24.1-36.2 64-Rex-474036:36 Prothrombin Time w/INR Comments: [facility] [address] [place], [place], [address] INR 1.3 (Normal) PROTIME 15.5 s (Abnormal) Range: 11.7-14.9 :39 CBC W/Diff, Automated Comments: Order Date: 12/02/16Order Info: 0184-1 - CBCDComments: coipy to Dr. jessie armendariz statOrder Date: 12/02/16Order Info: 0184-1 - CBCDComments: coipy to Dr. jessie armendariz statOrder Date: 12/02/16O rder Info: 0788-1 - LIVERComments: to stat copy to Dr. natalie armendarizLicking [facility] Hospital [address] [place], [address] Absolute Lymph 1.13 {X10_3/ul} (Normal) Range: 0.83-4.51 [...] 4.2-5.4 WBC 8.8 K/mm3 (Normal) Range: 4.4-11.0 55-Yvx-67007:39 Liver Profile Comments: Order Date: 12/02/16Order Info: 0788-1 - LIVEROrder Date: 12/02/16Order Info: 0788-1 - LIVERComments: to stat copy to Dr. estrada [facility] [address] [place], [place], [address] D BILI 0.28 mg/dL (Normal) Range: 0.00-0.30 T BILI 0.80 mg/dL (Normal) Range: 0.20-1.00 ALT 33 U/L (Normal) Range: 12-78 ALK P 71 U/L (Normal) Range: 45-117 AST 30 U/L (Normal) Range: 15-37 GLOB 2.9 g/dL (Normal) Range: 2.3-3.5 ALB 3.8 g/dL (Normal) Range: 3.4-5.0 T PROT 6.7 g/dL (Normal) Range: 6.4-8.2 20-Flv-628373:38 URINE DAR CULTURE (NOREEN Comments: PATIENT NOT FASTINGPERFORMED BY: [facility] Xjxgpy4980 [facility] [id number] Information: SRC:UC COL COUNT) (27753) Antimicrobial MIHEAD (Normal) Comments: S = Susceptible; [...] Colonies/mL (Abnormal) Urine Final report Culture,Comprehensive (Abnormal) 83-Nfq-62802:33 CBC W/Diff, Automated Comments: Order Date: 10/31/16Order Info: 0184-1 - CBCDOrder Info: [id number] - SEDOrder Date: 10/31/16Order Info: 0184-1 - CBCDOrder Info: 19056-8 - SEDOrder Date: 10/31/16Order Info: 3040-3 - LIPASEW [facility] [address] [place], [address] Absolute Lymph 1.10 {X10_3/ul} (Normal) Range: 0.83-4.51 [...] 4.2-5.4 WBC 11.1 K/mm3 (Abnormal) Range: 4.4-11.0 99-Beq-41336:33 Comprehensive Metabolic Profil Comments: Order Date: 10/31/16Order Info: 0786-1 - CMPOrder Info: 1798-8 - AMYOrder Info: 3040-3 - LIPASEOrder Date: 10/31/16Order Info: 3040-3 - LIPASEComments: all [facility] [address] [place], [address] GAP 10 (Normal) Range: 5-15 CO2 26.0 [...] 7-18 GLU 86 mg/dL (Normal) Range: 70-110 47-Zsp-28476:33 Erythrocyte Sed Rate Comments: Order Date: 10/31/16Order Info: 0184-1 - CBCDOrder Info: 31128-8 - SEDOrder Date: 10/31/16Order Info: 0184-1 - CBCDOrder Info: 32078-4 - SEDOrder Date: 10/31/16Order Info: 3040-3 - LIPASEW [facility] [address] [place], [address] SED RATE 12 mm/h (Normal) Range: 0-30 :33 Lipase (30876) Comments: Order Date: 10/31/16Order Info: 0786- 1 - CMPOrder Info: 1798-8 - AMYOrder Info: 3040-3 - LIPASEOrder Date: 10/31/16Order Info: 3040-3 - LIPASEComments: all [facility] [address], [address] LIPASE 216 U/L (Normal) Range: 73-393 :33 Amylase (89744) Comments: Order Date: 10/31/16Order Info: 0786- 1 - CMPOrder Info: 1798-8 - AMYOrder Info: 3040-3 - LIPASEOrder Date: 10/31/16Order Info: 3040-3 - LIPASEComments: all [facility] [address] [place], [address] QUENTIN 56 U/L (Normal) Range: 25-115 66-Wmm-18986:45 Urinalysis, Office (22050) UA - LEUKOCYTE ESTERASE Negative (Normal) UA - NITRITE Negative (Normal) URINE UROBILINGN NOREEN TIMED Normal mg/dL (Normal) UA - PROTEIN Negative mg/dL (Normal) UA - PH 6 (Abnormal) UA - BLOOD Non Hemolyzed Trace (Normal) UA - SPECIFIC GRAVITY 1.015 (Normal) UA - KETONES Negative mg/dL (Normal) UA - BILIRUBIN Negative (Normal) UA - GLUCOSE Negative (Normal) 35-Mnq-889477:00 Pathology Report Comments: PERFORMED BY: [facility] Cyto Wfrtj14485 [facility] [id number] Information: [id number] See MATER Comments: Material submitted: .SHAVE BIOPSY [...] ARE 4 PIECES TOTAL./CORCOR/CORPathologist provided ICD-10:L82.1, B07.8CPT .871971 6-Ygl-737388:50 Basic Metabolic Profile (BMP) Comments: DR TUCKER IS ORDERING THE BMPOrder Date: 06/28/16OV Order #: [id number] [facility] [address] [place], [address] GAP 9 (Normal) Range: 5-15 CO2 28.0 [...] 7-18 GLU 89 mg/dL (Normal) Range: 70-110 2-Pfn-740500:50 Lipid Profile Comments: DR TUCKER IS ORDERING THE BMPOrder Date: 06/28/16OV Order #: [id number] Memorial Hospital [address] [place], [place], [address] VLDL 14 mg/dL (Normal) Range: 5-40 LDL [...] 200-240 mg/dL Borderline >240 mg/dL High Risk 5-Nbg-489367:50 Liver Profile Comments: DR TUCKER IS ORDERING THE BMPOrder Date: 06/28/16OV Order #: [id number] Memorial Hospital [address] [place], [address] D BILI 0.11 mg/dL (Normal) Range: 0.00-0.30 [...] ORDERING THE BMPOrder Date: 06/28/16 Order #: [id number] Memorial Hospital [address] [place], [place], [address] T4 THYROXIN 12.8 ug/dL (Normal) Range: 4.8-13.9 3-Xbz-904788:50 Thyroid Stim Hormone (TSH) Comments: DR TUCKER IS ORDERING THE BMPOrder Date: 06/28/16 Order #: [id number] Memorial Hospital [address] [place], [place], [address] TSH 2.26 {uIU/mL} (Normal) Range: 0.358-3.74 60-Zsj-774684:26 URINE DAR CULTURE-IDENTIFICATN Comments: PATIENT NOT FASTINGPERFORMED BY: [facility]CoAtl[facility]Care [facility] CampusNkiaoh3385 [facility] [id number] Information: SRC:ANDREW (15446) Result 1 ECV (Abnormal) Comments: Escherichia coli, [...] report Culture,Comprehensi (Abnormal) ve :38 Urinalysis, Office (58177) UA - LEUKOCYTE ESTERASE Negative (Normal) UA - NITRITE Negative (Normal) URINE UROBILINGN NOREEN TIMED Normal mg/dL (Normal) UA - PROTEIN Negative mg/dL (Normal) UA - PH 5 (Abnormal) UA - BLOOD Hemolyzed Trace (Normal) UA - SPECIFIC GRAVITY 1.010 (Normal) UA - KETONES Negative mg/dL (Normal) UA - BILIRUBIN Negative (Normal) UA - GLUCOSE Negative (Normal) 57-Pzg-960323:02 Comprehensive Metabolic Profil Comments: CMP [facility]. [facility]NEYThe [facility] [address]hiw[address] [place], [address] GAP 8 (Normal) Range: 5-15 [...] 7-18 GLU 85 mg/dL (Normal) Range: 70-110 44-Teb-786762:02 T4 Total, Thyroxin Comments: [facility] [address]xvav[address] [place], [address] T4 THYROXIN 13.1 ug/dL (Normal) Range: 4.8-13.9 24-Ars-495790:02 Thyroid Stim Hormone (TSH) Comments: CMP IS FOR DR. KEARNEYThe [facility] [address] [place], [address] TSH 1.34 {uIU/mL} (Normal) Range: 0.358-3.74 :25 COLON BIOPSY (CHOOSE See Note (Normal) Comments: [facility] [address] [place], [address] SITE) Comments: Patient: IRIS ARRIAGA : 1940 (76/F) Acct Num: [id number] Phys: Clifford Gifford Unit Num: [id number] Loc: EN Specimen: [id number] Received: 01/30/16 - 50 Spec Type: COLON BX TISSUES TISSUES: GROSS DESCRIPTION Received is one container labeled with the patient name and designated mid ascending polyp. The specimen consists of two irregular fragments of light tansoft tissue that in aggregate measure 0.3 x 0.2 x 0.1 cm. The specimen is totally submitted in one cassette. / SJ:juan j 01/30/16 TC:5 CPT:33059 HEADER OPERATION: Colonoscopy PRE-OP DI AGNOSIS: Screening TISSUE SUBMITTED: Mid ascending polyp MICROSCOPIC DESCRIPTION Slides are reviewed. MICROSCOPIC DIAGNOSIS Mid ascending colon polyp, biopsy: Fragments of tubular adenoma. AM:juan j 01/31/16 Signed Abra[facility] 01/31/16 <signature on file> 76-Aln-686366:12 Basic Metabolic Profile (BMP) Comments: ORDERED BMPDR.REINA ORDERED TSH T4 LIPID [facility] [address] [place], [address] GAP 6 (Normal) Range: 5-15 CO2 27.0 [...] 7-18 GLU 78 mg/dL (Normal) Range: 70-110 01-Ssn-941002:12 Lipid Profile Comments: ORDERED BMPDR.MOODISPAW ORDERED TSH T4 LIPID [facility] [address] [place], [address] VLDL 15 mg/dL (Normal) Range: [...] 200-240 mg/dL Borderline >240 mg/dL High Risk 26-Ygf-238448:12 Liver Profile Comments: ORDERED BMPDR.MOODISPAW ORDERED TSH T4 LIPID [facility] [address] [place], [address] D BILI 0.17 mg/dL (Normal) Range: 0.00-0.30 T BILI 0.50 mg/dL (Normal) Range: 0.20-1.00 ALT 37 U/L (Normal) Range: 12-78 ALK P 68 U/L (Normal) Range: 50-136 AST 26 U/L (Normal) Range: 15-37 GLOB 3.8 g/dL (Abnormal) Range: 2.3-3.5 ALB 3.5 g/dL (Normal) Range: 3.4-5.0 T PROT 7.3 g/dL (Normal) Range: 6.4-8.2 81-Ylj-758633:12 T4 Total, Thyroxin Comments: ORDERED BMPDR.DELIOJOCELINE ORDERED TSH T4 [facility] [address] [place], [place], [address] T4 THYROXIN 14.3 ug/dL (Abnormal) Range: 4.8-13.9 05-Vmd-264157:12 Thyroid Stim Hormone (TSH) Comments: ORDERED BMPDR.DELIOISPAW ORDERED TSH T4 [facility] [address], [place], [address] TSH 2.32 {uIU/mL} (Normal) Range: 0.358-3.74 76-Sod-83078:37 Rapid Flu (35925 x 2) Influenza A Ag neg (Normal) 52-Urq-437703:28 Metabolic Panel, Basic Comments: PATIENT NOT FASTINGPERFORMED BY: [facility] Ghkzkh9221 [facility] [id number] (48569) Calcium, Serum 8.7 mg/dL (Normal) Range: 8.7-10.3 [...] Glucose, Serum 70 mg/dL (Normal) Range: 65-99 36-Auq-624744:28 CBC (Auto) (04147) Comments: PATIENT NOT FASTINGPERFORMED BY: LabCoAtlantiCare [facility] CampusNlbnpj2348 [facility] [id number] Information: [id number] Platelets 224 {x10E3/uL} (Normal) Range: 150-379 RDW 14.8 % (Normal) Range: 12.3-15.4 MCHC 33.0 g/dL (Normal) Range: 31.5-35.7 MCH 31.9 pg (Normal) Range: 26.6-33.0 MCV 97 fL (Normal) Range: 79-97 Hematocrit 39.4 % (Normal) Range: 34.0-46.6 Hemoglobin 13.0 g/dL (Normal) Range: 11.1-15.9 RBC 4.08 {x10E6/uL} (Normal) Range: 3.77-5.28 WBC 8.1 {x10E3/uL} (Normal) Range: 3.4-10.8 46-Zgj-165280:51 URINE DAR CULTURE-IDENTIFICATN Comments: PATIENT NOT FASTINGPERFORMED BY: LabCoAtlantiCare [facility], [facility] CampusQkxpeo7488 [facility] [id number] Information: [id number] (92529) Result 1 MUG (Normal) Comments: Mixed urogenital flora2,000 Colonies/mL Urine Culture,Comprehensive Final report (Normal) 66-Iae-53162:28 Magnesium Comments: [facility] [address] [place], [address] MG 2.1 mg/dL (Normal) Range: 1.8-2.4 79-Hdl-55671:28 Potassium Comments: [facility] [address] [place], [address] K 5.0 mmol/L (Normal) Range: 3.5-5.1 77-Vng-711889:12 LIPASE (51956) Comments: Test(s) Potassium, Serum called to Gina Vergara on 11/21/2015 at 03:54 ESTPATIENT NOT FASTINGPERFORMED BY: [facility]6370 [facility] [id number] Lipase, Serum 61 U/L (Abnormal) Range: 0-59 27-Zol-966248:12 AMYLASE (12150) Comments: Test(s) Potassium, Serum [facility] on 11/21/2015 at 03:54 ESTPATIENT NOT FASTINGPERFORMED BY: [facility] TrackAtlantiCare Regional Medical [facility], [facility] CampusNkklrq8152 [facility] [id number] Amylase, Serum 84 U/L (Normal) Range: 31-124 16-Nig-559075:20 Urinalysis, Office (47605) UA - LEUKOCYTE ESTERASE Trace (Normal) UA - NITRITE Negative (Normal) URINE UROBILINGN NOREEN TIMED Normal mg/dL (Normal) UA - PROTEIN 100 mg/dL (Normal) UA - PH 6.0 (Normal) Comments: 5.5 UA - BLOOD Negative (Normal) UA - SPECIFIC GRAVITY 1.030 (Abnormal) UA - KETONES 15 mg/dL (Abnormal) UA - BILIRUBIN Moderate (Normal) UA - GLUCOSE Negative (Normal) 09-Qoh-212836:12 Metabolic Panel, Basic Comments: Test(s) Potassium, Serum called to [facility] on 11/21/2015 at 03:54 ESTPATIENT NOT FASTINGPERFORMED BY: [facility] TrackAtlantiCare Regional Medical Center, [facility] CampusIbtmdl1399 [facility] [id number] ([id number]) Calcium, Serum 8.9 mg/dL (Normal) Range: 8.7-10.3 [...] Comments: Specimen received hemolyzed. Clinical correlation indicated. 25-Esr-669656:12 CBC WITH MANUAL DIFF Comments: Test(s) Potassium, Serum called to Ziegler on 11/21/2015 at 03:54 ESTPATIENT NOT FASTINGPERFORMED BY: MISHA [facility] Aifxzr7737 [facility] [id number] Information: [id number] (17285) Immature Grans (Abs) 0.0 {x10E3/uL} (Normal) Range: [...] 3.77-5.28 WBC 16.1 {x10E3/uL} (Abnormal) Range: 3.4-10.8 [id number]-[id number]:50 Urinalysis, Complete Comments: Order Date: 11/15/15How was Urine Obtained? ICE CREAM VENDOR TO [facility] [id number] [place], [address] HYALINE CAST 5-10 SEEN {/lpf} [...] (Normal) CLARITY Clear (Normal) COLOR Yellow (Normal) [id number]-Peh-[id number]:00 Basic Metabolic Profile (BMP) Comments: [facility] [id number] [place], [place], [id number] GAP 6 (Normal) Range: 5-15 CO2 24.0 [...] 7-18 GLU 88 mg/dL (Normal) Range: 70-110 6-Kgf-693437:00 CBC W/Diff, Automated Comments: [facility] [id number] [place], [address] SMEAR COMMENT SCANNED (Normal) Absolute [...] 4.2-5.4 WBC 16.9 K/mm3 (Abnormal) Range: 4.4-11.0 2-Otz-[id number]:00 Lipase Comments: [facility] [id number] [place], [address] LIPASE 446 U/L (Abnormal) Range: 73-393 3-Wpp-135746:00 Liver Profile Comments: [facility] [id number] [place], [place], [id number] D BILI 0.06 mg/dL (Normal) Range: 0.00-0.30 T BILI 0.40 mg/dL (Normal) Range: 0.20-1.00 ALT 94 U/L (Abnormal) Range: 12-78 ALK P 66 U/L (Normal) Range: 50-136 AST 76 U/L (Abnormal) Range: 15-37 Comments: Moderate Hemolysis, Result may be falsely increased. GLOB 4.0 g/dL (Abnormal) Range: 2.3-3.5 ALB 3.3 g/dL (Abnormal) Range: 3.4-5.0 T PROT 7.3 g/dL (Normal) Range: 6.4-8.2 8-Opk-439092:00 Thyroid Stim Hormone (TSH) Comments: [facility] [address] [place], [address] TSH 1.12 {uIU/mL} (Normal) Range: 0.358-3.74 2-Vzt-070648:18 Thyroid Stim Hormone (TSH) Comments: [facility] [address] [place], [place], [address] TSH 0.59 {uIU/mL} (Normal) Range: 0.358-3.74 56-Mzq-485407:18 Pathology Report Comments: PERFORMED BY: KWCYT [facility] [place] Cyto Uzugx37343 [facility] [id number] BY: INDYL [facility] [address] [place] [address] [id number] BY: LX [facility] Ypmhatl25811 [facility] [id number] Information: [id number] See MATER Comments: Material submitted: .SHAVE CHESTClinician [...] BISECTED AND SUBMITTED IN TOTO.XJW/TMZPathologist provided ICD-10:L57.0CPT .627144 73-Hlk-548068:40 Basic Metabolic Profile (BMP) Comments: 'TROP' Serial specimen #1, #2, #3, or #4: [address] [place] [address] [address]frfalzd1401 [place], [address] GAP 7 (Normal) Range: 5-15 CO2 27.0 [...] 7-18 GLU 76 mg/dL (Normal) Range: 70-110 82-Hkg-115189:40 BNP,B-Type NATRIURETIC PEPTIDE Comments: [facility] [address] [place], [place], [address] B-TYPE HUMBLE PEP 406.4 pg/mL (Abnormal) Range: 0-100 05-Nbn-433599:40 CBC W/Diff, Automated Comments: [facility] [address]joq[address] [place], [place], [address] Absolute Lymph 1.25 {X10_3/ul} (Normal) Range: 0.83-4.51 [...] 4.2-5.4 WBC 9.2 K/mm3 (Normal) Range: 4.4-11.0 59-Wyj-332486:40 Troponin-I Comments: 'TROP' Serial specimen #1, #2, #3, or #4: [facility] [address]jntpfp119[address] [place], [address] TROPONIN-I 0.03 ng/mL (Normal) Comments: TROPONIN-I EXPECTED VALUES <0.05 NEGATIVE 0.06 - 0.59 AT RISK OF NC > OR = 0.60 SUGGEST NC 81-Bia-625811:25 Urinalysis, Complete Comments: Order Date: 08/09/15How was Urine Obtained? [facility] [address]nerqegfr[address], [address] MUCUS, URINE 0 SEEN {/hpf} [...] (Normal) CLARITY Clear (Normal) COLOR Straw (Normal) 96-Fot-356748:26 Basic Metabolic Profile (BMP) Comments: 'TROP' Serial specimen #1, #2, #3, or #4: [address] [place] [address] [address] [place], [place], [address] GAP 4 (Abnormal) Range: 5-15 CO2 29.0 [...] 7-18 GLU 66 mg/dL (Abnormal) Range: 70-110 03-Lbq-969192:26 CBC W/Diff, Automated Comments: [facility] [address]oul[address] [place], [place], [address] SMEAR COMMENT SCANNED (Normal) Absolute Lymph 2.04 [...] 4.2-5.4 WBC 18.6 K/mm3 (Abnormal) Range: 4.4-11.0 05-Jrb-040616:26 Prothrombin Time w/INR Comments: [facility] [address] [place], [address] INR 1.1 (Normal) PROTIME 14.0 s (Normal) Range: 11.7-14.9 51-Grc-804459:26 Troponin-I Comments: 'TROP' Serial specimen #1, #2, #3, or #4: 1[facility] [address]cn[address] [place], [address] TROPONIN-I < 0.02 ng/mL (Normal) Comments: TROPONIN-I EXPECTED VALUES <0.05 NEGATIVE 0.06 - 0.59 AT RISK OF NC > OR = 0.60 SUGGEST NC 72-Sif-619300:02 Bilirubin, Direct Comments: ORDERED LIPID,LIVERDRCLOVER ORDERED CBCD,TSH,LIPID,CMP,[facility] Ymxftmkumx4[address] [place], [address] D BILI 0.15 mg/dL (Normal) Range: 0.00-0.30 64-Fzv-058793:02 CBC W/Diff, Automated Comments: [facility] [address]xfu[address]ym[address] [place], [address] Absolute Lymph 0.99 {X10_3/ul} (Normal) Range: 0.83-4.51 [...] 4.2-5.4 WBC 7.5 K/mm3 (Normal) Range: 4.4-11.0 15-Rcz-415241:02 Comprehensive Metabolic Comments: ORDERED LIPID,LIVERDRCLOVER ORDERED CBCD,TSH,LIPID,CMP,[facility] [address] [place], [address] Profil GAP 8 (Normal) Range: 5-15 CO2 [...] 7-18 GLU 80 mg/dL (Normal) Range: 70-110 16-Svk-848349:02 Lipid Profile Comments: ORDERED LIPID,LIVERDRCLOVER ORDERED CBCD,TSH,LIPID,CMP,[facility] [address] [place], [address] VLDL 18 mg/dL (Normal) Range: [...] 200-240 mg/dL Borderline >240 mg/dL High Risk 12-Mjw-650849:02 Thyroid Stim Hormone Comments: ORDERED LIPID,LIVERDRCLOVER ORDERED CBCD,TSH,LIPID,CMP,[facility] [address] [place], [address] (TSH) TSH 1.37 {uIU/mL} (Normal) Range: 0.358-3.74 21-Qat-417200:02 Urinalysis, Complete Comments: How was Urine Obtained? [facility] [address]tax[address] [place], [address] MUCUS, URINE 0 SEEN {/hpf} [...] (Normal) CLARITY Clear (Normal) COLOR Straw (Normal) 79-Nuz-064640:40 Basic Metabolic Profile (BMP) Comments: REDRAW. PREVIOUS SPECIMEN REJECTED DUE TOHEMOLYSIS. 06/06/15 1526 Bl[address].[facility] [address]ej[address] [place], [place], [address] GAP 6 (Normal) Range: 5-15 CO2 28.0 [...] <126 mg/dLsuggests IMPAIRED HOMEOSTASIS per A.D.A. criteria. 56-Obh-463843:10 CBC W/Diff, Automated Comments: [facility] [address] [place], [place], [address] Absolute Lymph 1.33 {X10_3/ul} (Normal) Range: 0.83-4.51 [...] Panel Comments: PATIENT NOT FASTINGPERFORMED BY: [facility] Tdqhui1019 [facility] [id number] Information: [id number] (46048) Albumin, Serum 3.6 g/dL (Normal) Range: 3.5-4.8 [...] (Abnormal) Range: 65-99 Comments: Client Requested Flag 84-Kfb-645380:57 CK-MB Quantitative and Index Comments: Serial Specimen #1, #2 or #3? 2Comments: Should be drawn 2H after initial Troponin obtained'TROP' Serial specimen #1, #2, #3, or #4: 2Test performed at:[facility] [address] [place] [address] CPKMB 1.1 ng/mL (Normal) Range: 0.0-5.0 Comments: CK-MB and RI Interpretation MB Relative Index Non-AMI <or= 5 NA Indeterminate > 5 <or= 4 AMI > 5 > 4 CPK TOTAL 48 U/L (Normal) Range: 26-192 07-Xcv-966994:57 Troponin-I Comments: Serial Specimen #1, #2 or #3? 2Comments: Should be drawn 2H after initial Troponin obtained'TROP' Serial specimen #1, #2, #3, or #4: 2Test performed at:[address] [place] [address] TROPONIN-I < 0.02 ng/mL (Normal) Comments: TROPONIN-I EXPECTED VALUES <0.05 NEGATIVE 0.06 - 0.59 AT RISK OF NC > OR = 0.60 SUGGEST NC 00-Jsf-503552:33 Comprehensive Metabolic Profil Comments: Test performed at:[facility] [address] [place] [address] GAP 6 (Normal) Range: 5-15 [...] Comments: Please note revised CREATININE reference range jiiftbqpl08/22/2015. BUN 35 mg/dL (Abnormal) Range: 7-18 GLU 53 mg/dL (Abnormal) Range: 70-110 72-Zrm-356598:33 CRP Comments: Test performed at:[facility] [address] [place] [address] C-REACTIVE PROT < 2.90 mg/L (Normal) Range: 0.0-3.0 Comments: C-Reactive Protein (CRP) provides useful information for thediagnosis, therapy and monitoring of inflammatory processesand associated diseases. For the evaluation of Relative Riskfor Cardiovascular Dise ase, a High Sensitivity CRP (HSCRP)should be ordered. 40-Ueo-443962:33 Erythrocyte Sed Rate Comments: Test performed at:[facility] [address] [place] [address] SED RATE 7 mm/h (Normal) Range: 0-30 97-Exf-689967:38 URINE DAR CULTURE-NOREEN COL Comments: PATIENT NOT FASTINGPERFORMED BY: MISHA [facility] Mowmrc2429 [place] [id number] Information: SRC:URC [id number] COUNT (35455) Result 1 NG36 (Normal) Comments: No growth in 36 - 48 hours. Urine Culture,Comprehensive Final report (Normal) 33-Qtk-248163:07 Urinalysis, Office (38434) UA - LEUKOCYTE ESTERASE Trace (Normal) UA - NITRITE Negative (Normal) URINE UROBILINGN NOREEN TIMED 2 mg/dL (Normal) UA - PROTEIN Negative mg/dL (Normal) UA - PH 5.0 (Normal) UA - BLOOD Negative (Normal) UA - SPECIFIC GRAVITY 1.015 (Normal) UA - KETONES Small mg/dL (Normal) UA - BILIRUBIN Negative (Normal) UA - GLUCOSE Negative (Normal) 08-Feb-20159:39 Pathology Report Comments: PERFORMED BY: ENOVIXCYT [facility] [place] Cyto Ouvng51740 [facility] [id number] BY: [facility] Dermatopathology Kdhuorf[address] [id number] Information: [id number] See MATER Comments: Material submitted: .SHAVE BIOPSY [...] HOLOGIC CORRELATIONIS RECOMMENDED.02/13/2015Electronically signed: .Gege Reece MD, [facility] topathologistGross description: .RECEIVED IS A CONTAINER LABELED IRIS ARRIAGA AND DESIGNATEDUPPER LESION ON CHEEK. IN FORMALIN IS A FERGUSON TISSUE MEASURING 4 X4 X 1 MM. IT IS INKED PURPLE, BISECTED, AND BOTH HALVES ARESUBMITTED IN A SINGLE CASSETTE.COR/BXSPathologist provided ICD-9:686.9, 682.0CPT .006785, 748453, 422905 62-Qfo-541312:29 T4 Total, Thyroxin Comments: PER PT ONLY TSH AND T4 TODAYTest performed at:[facility] [address] [place] [address] T4 THYROXIN 13.2 ug/dL (Normal) Range: 4.8-13.9 87-Vfq-886540:29 Thyroid Stim Hormone (TSH) Comments: PER PT ONLY TSH AND T4 TODAYTest performed at:[facility] [address] [place] [address] TSH 3.74 {uIU/mL} (Normal) Range: 0.358-3.74 34-Mpz-263885:17 URINE DAR CULTURE-NOREEN COL Comments: PATIENT NOT FASTINGPERFORMED BY: [facility] Hiapbv6022 [facility] [id number] Information: SRC: URINE COUNT (05361) Result 1 NG36 (Normal) Comments: No growth in 36 - 48 hours. Urine Culture,Comprehensive Final report (Normal) 64-Hgg-289778:48 Urinalysis, Office (61003) UA - LEUKOCYTE ESTERASE Negative (Normal) UA - NITRITE Negative (Normal) URINE UROBILINGN NOREEN TIMED Normal mg/dL (Normal) UA - PROTEIN Negative mg/dL (Normal) UA - PH 6.0 (Normal) Comments: 5.5 UA - BLOOD Negative (Normal) UA - SPECIFIC GRAVITY 1.010 (Normal) UA - KETONES Negative mg/dL (Normal) UA - BILIRUBIN Negative (Normal) UA - GLUCOSE Negative (Normal) 21-Jiz-370400:31 Basic Metabolic Profile (BMP) Comments: Test performed at:[facility] [address]ek[address] [place], [place] [address] GAP 5 (Normal) Range: 5-15 CO2 27.0 mmol/L (Normal) Range: 21.0-32.0 CL 103 mmol/L (Normal) Range: 98-107 K 4.8 mmol/L (Normal) Range: 3.5-5.1 NA 135 mmol/L (Abnormal) Range: 136-145 CA 8.7 mg/dL (Normal) Range: 8.5-10.1 BUN/CRE 16.4 {RATIO} (Normal) Range: 10-20 CREAT,SERUM 1.1 mg/dL (Abnormal) Range: 0.6-1.0 BUN 18 mg/dL (Normal) Range: 7-18 GLU 89 mg/dL (Normal) Range: 70-110 64-Toc-969547:31 Lipid Profile Comments: Test performed at:[facility] [address] [place] [address] VLDL 22 mg/dL (Normal) Range: [...] 200-240 mg/dL Borderline >240 mg/dL High Risk 26-Zvj-496819:31 Liver Profile Comments: Test performed at:[facility] [address] [place] [address] D BILI 0.10 mg/dL (Normal) Range: 0.00-0.30 T BILI 0.30 mg/dL (Normal) Range: 0.00-4.00 ALT 35 U/L (Normal) Range: 12-78 ALK P 85 U/L (Normal) Range: 50-136 AST 38 U/L (Abnormal) Range: 15-37 GLOB 3.6 g/dL (Normal) Range: 2.7-4.2 ALB 3.7 g/dL (Normal) Range: 3.4-5.0 T PROT 7.3 g/dL (Normal) Range: 6.4-8.2 23-Npm-344991:31 T4 Total, Thyroxin Comments: Test performed at:[facility] [address] [place] [address] T4 THYROXIN 14.9 ug/dL (Abnormal) Range: 4.8-13.9 :31 Thyroid Stim Hormone (TSH) Comments: Test performed at:[facility] [address] [place] [address] TSH 2.32 {uIU/mL} (Normal) Range: 0.358-3.74 :30 CBC W/Diff, Automated Comments: Test performed at:[facility] [address] [place] [address] Absolute Lymph 1.12 {X10_3/ul} (Normal) [...] 4.2-5.4 WBC 8.8 K/mm3 (Normal) Range: 4.4-11.0 00-Tfa-725133:30 Urinalysis, Complete Comments: DR HUANG LIVER LIPID TSH T4 ONLYHow was Urine Obtained? CLEAN CATCHTest performed at:[facility] Rfzavnefsa3168 [facility] [place] [address] HYALINE CAST 0-5 SEEN {/lpf} [...] CLARITY Sl. Cloudy (Normal) COLOR Yellow (Normal) 89-Xxu-029861:09 CBC W/Diff, Automated Comments: Test performed at:[facility] Bzsaujfrsd2308 [facility] [place] [address] Absolute Lymph 0.85 {X10_3/ul} (Normal) [...] 4.2-5.4 WBC 8.7 K/mm3 (Normal) Range: 4.4-11.0 92-Rpl-856528:09 Comprehensive Metabolic Profil Comments: 'TROP' Serial specimen #1, #2, #3, or #4: 1Test performed at:[facility] [address]xpetlg[address] [place], [place] [address] GAP 5 (Normal) Range: 5-15 CO2 27.0 [...] <126 mg/dLsuggests IMPAIRED HOMEOSTASIS per A.D.A. criteria. 77-Qoj-670711:09 Troponin-I Comments: 'TROP' Serial specimen #1, #2, #3, or #4: 1Test performed at:[facility] [address]cf[address] [place], [place] [address] TROPONIN-I < 0.02 ng/mL (Normal) Comments: TROPONIN-I EXPECTED VALUES <0.05 NEGATIVE 0.06 - 0.59 AT RISK OF NC > OR = 0.60 SUGGEST NC 17-Imb-472983:21 Rapid Flu (44418 x 2) Influenza A Ag neg (Normal) 4-Vll-460172:05 TSH 6.19 {uIU/mL} (Abnormal) Range: 0.358-3.74 95-Hnh-05957:54 CBCMD ANC 10.3 3/uL (Abnormal) Range: 2.0-7.7 [...] CHOL 151 mg/dL (Normal) Comments: <200 mg/dL Amrdikcwd529-957 mg/dL Borderline>240 mg/dL High Risk :54 TSH 0.72 {uIU/mL} (Normal) Range: 0.358-3.74 52-Hya-366945:37 Rapid Strep Test, Office (16068) Comments: neg Rapid Strep Test, Office Negative (Normal) 12-Zdx-308767:03 DAR CULTURE-OTHER (10155) Comments: PATIENT NOT FASTINGPERFORMED BY: [facility] CampusEbrrxj5644 [facility] [id number] Information: SRC:THRT [id number] Result 1 RRF (Normal) Comments: Routine respiratory julia Upper Respiratory Culture Final report (Normal) 05-Vbi-619224:12 Urinalysis, Office (68097) UA - BILIRUBIN Negative (Normal) UA - BLOOD Hemolyzed Trace (Normal) UA - GLUCOSE Negative (Normal) UA - KETONES Negative mg/dL (Normal) UA - LEUKOCYTE ESTERASE Trace (Normal) UA - NITRITE Negative (Normal) UA - PH 6.0 (Normal) UA - PROTEIN Negative mg/dL (Normal) UA - SPECIFIC GRAVITY 1.010 (Normal) URINE UROBILINGN NOREEN TIMED 2 mg/dL (Normal) 12-Nkc-524480:53 DEXA BONE DENSITY STUDY (HP) Radiology Report [...] Fink M.D.July 29, 2012 at 2:05:06 PM [id number] Signed GP/GP If you are the referring physician and would like to consult with theradiologist who provided this interpretation, please contact Aleida Osei at [phone]. If this radiologist is unavailable, youwil l be directed to another radiologist to assist. If you are a patient with a question regarding this report, pleasecontactyour referring physician directly. Professional Interpretation Provided By: Valmarc karina, Phone , These documents contain legally [...] 07/29/12 1410 Sign by: Ed Fink MD 84-Dqc-409853:37 BILAT SCRN DIGITAL & CAD Radiology Report [...] Fink M.D.July 14, 2012 at 1:35:04 PM [id number] Signed GP/GP If you are the referring physician and would like to consult with theradiologist who provided this interpretation, please contact Aleida Osei at [phone]. If this radiologist is unavailable, youwill be directed to another radiologist to assist. If you are a patient with a questi on regarding this report, pleasecontactyour referring physician directly. Professional Interpretation Provided By: Yoovi, Phone , These documents contain legally prot [...] mg/dL Comments: Order Date: 02/06/12OV Order #: [id number] ID: [id number] Comments: DX = 272.4 JLS [...] 12 hours, may have water.OV Order #: [id number] Order #: [id number] Comments: Reason:Interface Comments: DX = 427.31 [facility] 02/07/12OV Order #: [id number] Comments: DX = 428.0 [facility] 02/07/12 Range: 0.00-0.30 08-Pyz-550186:57 CMP Comments: Order Date: 02/06/12OV Order #: [id number] ID: [id number] Comments: DX = 272.4 [facility] 02/07/12Diagnosis: V58.69 - LONG-TERM USE [...] 12 hours, may have water.OV Order #: [id number] Order #: [id number] Comments: Reason:Interface Comments: DX = 427.31 [facility] 02/07/12OV Order #: [id number] Comments: DX = 428.0 [facility] 02/07/12 GAP 6 (Normal) Range: [...] 7-18 GLU 92 mg/dL (Normal) Range: 70-110 11-Nyq-419456:57 LIPID Comments: Order Date: 02/06/12OV Order #: [id number] ID: [id number] Comments: DX = 272.4 [facility] 02/07/12Diagnosis: V58.69 - LONG-TERM USE [...] 12 hours, may have water.OV Order #: [id number] Order #: [id number] Comments: Reason:Interface Comments: DX = 427.31 [facility] 02/07/12OV Order #: [id number] Comments: DX = 428.0 [facility] 02/07/12 VLDL 13 mg/dL (Normal) [...] (Normal) Comments: Order Date: 02/06/12OV Order #: [id number] ID: [id number] Comments: DX = 272.4 JLS [...] 12 hours, may have water.OV Order #: [id number] Order #: [id number] Comments: Reason:Interface Comments: DX = 427.31 [facility] 02/07/12OV Order #: [id number] Comments: DX = 428.0 [facility] 02/07/12 Range: 2.5-4.9 65-Ubr-000802:57 T4 12.6 ug/dL (Normal) Comments: Order Date: 02/06/12OV Order #: [id number] ID: [id number] Comments: DX = 272.4 JLS [...] 12 hours, may have water.OV Order #: [id number] Order #: [id number] Comments: Reason:Interface Comments: DX = 427.31 [facility] 02/07/12OV Order #: [id number] Comments: DX = 428.0 [facility] 02/07/12 Range: 4.8-13.9 51-Woz-292409:57 T4F 1.76 ng/dL (Abnormal) Comments: Order Date: 02/06/12OV Order #: [id number] ID: [id number] Comments: DX = 272.4 [facility] 02/07/12Diagnosis: V58.69 - LONG-TERM USE [...] 12 hours, may have water.OV Order #: [id number] Order #: [id number] Comments: Reason:Interface Comments: DX = 427.31 [facility] 02/07/12OV Order #: [id number] Comments: DX = 428.0 [facility] 02/07/12 Range: 0.76-1.46 00-Dxa-751960:57 TSH 2.47 {uIU/mL} (Normal) Comments: Order Date: 02/06/12OV Order #: [id number] ID: [id number] Comments: DX = 272.4 [facility] 02/07/12Diagnosis: V58.69 - LONG-TERM USE [...] 12 hours, may have water.OV Order #: [id number] Order #: [id number] Comments: Reason:Interface Comments: DX = 427.31 [facility] 02/07/12OV Order #: [id number] Comments: DX = 428.0 [facility] 02/07/12 Range: 0.358-3.74 28-Lkt-075959:47 CBCD Comments: DR. VERGARA ORDERED CMP, RENAL, [...] 4.2-5.4 WBC 6.7 K/mm3 (Normal) Range: 4.4-11.0 2-Til-898766:21 CBCD ANC 5.1 3/uL (Normal) Range: 2.0-7.7 [...] 4.2-5.4 WBC 7.8 K/mm3 (Normal) Range: 4.4-11.0 2-Xjz-641969:21 LIPID Comments: ORDERED TSH LIPID T4DR.BONEALIA ORDERED [...] VALVE PROLAPSEDiagnosis: 272.4 - HYPERLIPIDEMIAOV Order #: [id number] ID: [id number] Order #: [id number] Comments: Reason:OV Order #: [id number] VLDL 10 mg/dL (Normal) Range: 5-40 LDL [...] 200-240 mg/dL Borderline >240 mg/dL High Risk 7-Poa-117564:21 RENAL Comments: ORDERED TSH LIPID T4DR.CLARY ORDERED [...] VALVE PROLAPSEDiagnosis: 272.4 - HYPERLIPIDEMIAOV Order #: [id number] ID: [id number] Order #: [id number] Comments: Reason:OV Order #: [id number] CO2 26.0 mmol/L (Normal) Range: 21.0-32.0 CL [...] 7-18 GLU 87 mg/dL (Normal) Range: 70-110 4-Zaf-094595:21 T4 15.1 ug/dL (Abnormal) Comments: ORDERED TSH [...] VALVE PROLAPSEDiagnosis: 272.4 - HYPERLIPIDEMIAOV Order #: [id number] ID: [id number] Order #: [id number] Comments: Reason:OV Order #: [id number] Range: 4.8-13.9 5-Ouo-587436:21 TSH 1.69 {uIU/mL} (Normal) Comments: ORDERED TSH [...] VALVE PROLAPSEDiagnosis: 272.4 - HYPERLIPIDEMIAOV Order #: [id number] ID: [id number] Order #: [id number] Comments: Reason:OV Order #: [id number] Range: 0.358-3.74 88-Rat-12292:57 BMP GAP 7 (Normal) Range: 5-15 CO2 [...] :57 TSH 2.61 {uIU/mL} (Normal) Range: 0.358-3.74 53-Nax-746463:38 URINE DAR CULTURE-NOREEN COL Comments: PATIENT NOT FASTINGPERFORMED BY: [facility] CampusUrqxoe0486 [facility] [id number] Information: SRC: URINE COUNT (26522) Result 1 NG36 (Normal) Comments: No growth in 36 - 48 hours. Urine Culture,Comprehensive Final report (Normal) :42 Urinalysis, Office (91816) UA - BILIRUBIN Negative (Normal) UA - BLOOD Non Hemolyzed Trace (Normal) UA - GLUCOSE Negative (Normal) UA - KETONES Negative mg/dL (Normal) UA - LEUKOCYTE ESTERASE Trace (Abnormal) UA - NITRITE Negative (Normal) UA - PH 5.0 (Normal) UA - PROTEIN Negative mg/dL (Normal) UA - SPECIFIC GRAVITY 1.005 (Normal) URINE UROBILINGN NOREEN TIMED Normal mg/dL (Normal) 94-Bxo-249626:03 Urinalysis, Office (89696) UA - BILIRUBIN Negative (Normal) UA - BLOOD Hemolyzed Trace (Normal) UA - GLUCOSE Negative (Normal) UA - KETONES Negative mg/dL (Normal) UA - LEUKOCYTE ESTERASE Trace (Normal) UA - NITRITE Negative (Normal) UA - PH 5.0 (Normal) UA - PROTEIN Negative mg/dL (Normal) UA - SPECIFIC GRAVITY 1.010 (Normal) URINE UROBILINGN NOREEN TIMED Normal mg/dL (Normal) 3-Yon-106782:00 BMP Comments: JANET ORDERED BMP MG T4 [...] 7-18 GLU 88 mg/dL (Normal) Range: 70-110 3-Srp-873520:00 LIPID Comments: JANET ORDERED BMP MG T4 [...] 200-240 mg/dL Borderline >240 mg/dL High Risk 1-Ziw-870165:00 LIVER Comments: JANET ORDERED BMP MG T4 TSH LIVER LIPIDBONEZZI ORDERED BMP TSH T4F D BILI 0.11 mg/dL (Normal) Range: 0.00-0.30 T BILI 0.40 mg/dL (Normal) Range: 0.00-1.00 ALT 26 U/L (Normal) Range: 12-78 ALK P 70 U/L (Normal) Range: 50-136 AST 23 U/L (Normal) Range: 15-37 ALB 4.1 g/dL (Normal) Range: 3.4-5.0 T PROT 8.0 g/dL (Normal) Range: 6.4-8.2 5-Xoz-873813:00 MG 2.0 mg/dL (Normal) Comments: JANET ORDERED BMP MG T4 TSH LIVER LIPIDBONEZZI ORDERED BMP TSH T4F Range: 1.5-2.2 8-Rix-928013:00 T4 FREE DIRECT 1.69 ng/dL (Abnormal) Comments: JANET ORDERED BMP MG T4 TSH LIVER LIPIDBONEZZI ORDERED BMP TSH T4F Range: 0.76-1.46 1-Xsr-[id number]:00 T4 THYROXIN 14.3 ug/dL (Abnormal) Comments: JANET ORDERED BMP MG T4 TSH LIVER LIPIDBONEZZI ORDERED BMP TSH T4F Range: 4.8-13.9 9-Qwi-063553:00 TSH 2.00 {uIU/mL} (Normal) Comments: JANET ORDERED BMP MG T4 TSH LIVER LIPIDBONEZZI ORDERED BMP TSH T4F Range: 0.358-3.74 7-Zwf-055580:46 Anaerobic and Aerobic Comments: PERFORMED BY: [facility] [facility] [id number] Information: SRC:EB RIGHT ELBOW Culture Result 1 NG36 (Normal) Comments: No growth in 36 - 48 hours. Aerobic Culture Final report (Normal) Result 1 [id number] (Normal) Comments: No aerobic or anaerobic growth in 72 hours. Anaerobic Culture Final report (Normal) [id number] Urinalysis, Office (48209) UA - BILIRUBIN Negative (Normal) UA - BLOOD Negative (Normal) UA - GLUCOSE Negative (Normal) UA - KETONES Negative mg/dL (Normal) UA - LEUKOCYTE ESTERASE Negative (Normal) UA - NITRITE Negative (Normal) UA - PH 5.0 (Normal) UA - PROTEIN Negative mg/dL (Normal) UA - SPECIFIC GRAVITY 1.015 (Normal) URINE UROBILINGN NOREEN TIMED 2 mg/dL (Normal) 39-Zrw-[id number]:00 L/S SPINE,MIN 4 VIEWS Radiology Report See [...] (Abnormal) Range: 0-34 Comments: Performed at: - [facility] [id number] Director: Bella Taylor MD, Phone: [phone] T3 TOTAL 0.8 ng/mL (Normal) Comments: ORDERED [...] TPO T3F T4F 2:06 (Abnormal) Range: 0.358-3.74 17-Hze-134107:13 BMP GAP 12 (Normal) Range: 5-15 CO2 [...] 7-18 GLU 95 mg/dL (Normal) Range: 70-110 02-Srp-243939:13 CBCD ABSOLUTE NEUT 5.1 3/uL (Normal) Range: [...] 4.2-5.4 WBC 7.1 K/mm3 (Normal) Range: 4.4-11.0 20-Hqo-800628:34 Vaginitis/Vaginosis, DNA Probe Comments: [facility]: [facility] [id number] Information: SRC:CE Gardnerella vaginalis Negative (Normal) Trichomonas [...] Visit for suture removal Concussion : Reviewed Sdc Teacher Letter Indication: Concussion Fall, accidental : Reviewed Sdc Teacher Letter Indication: Fall, accidental Fall, accidental [...] Cerumen impaction : Follow up in with [facility] for ear irrigation Indication: Cerumen impaction [...] tract infection, unspecified type Planned Observations TSH (70088)Indication: Memory impairment On: 58-Tpe-172232:11 Request AMMONIA ([id number])Indication: Memory impairment On: 86-Hpa-437216:11 Request Methymalonic Acid, Serum (22447)Indication: Memory impairment On: 16-Fzf-126071:11 Request VITAMIN B-12 (CYANOCOBALAMIN) ([id number])Indication: Memory impairment On: 04-Jrc-716334:11 Request FOLIC ACID SERUM (06538)Indication: Memory impairment On: 26-Lwm-673364:11 Request METABOLIC PANEL, COMPREHENSIVE (41894)Indication: Coronary artery disease On: 65-Our-425222:02 Request Comments: fax copy to SHAWN Bonilla, BY NMR ([id number])Indication: Coronary artery disease On: 75-Lol-927877:02 Request CALCIFIDIOL (85176) VIT D 25Indication: Vitamin D deficiency On: 32-Kyi-112457:02 Request Metabolic Panel, Comprehensive (87407)Indication: Hypokalemia On: 12-Nov-2017 Request Comments: fax a copy to Dr. Caitlin May [phone] Huang [phone] MAGNESIUM ([id number])Indication: Hypokalemia On: 2-Xeq-107448:03 Request Metabolic Panel, Comprehensive ([id number])Indication: Hypokalemia On: 7-Qqi-189916:02 Request Comments: fax a copy to Dr. Caitlin May [phone] Huang [phone] Metabolic Panel, Comprehensive ([id number])Indication: Hypokalemia On: 05-Nov-2017 Request Comments: fax a copy to Dr. Caitlin [id number] Huang [phone] Metabolic Panel, Comprehensive (02694)Indication: Hypokalemia On: 29-Oct-2017 Request Comments: fax a copy to Dr. Caitlin [id number]-[address] Huang [phone] Metabolic Panel, Comprehensive ([id number])Indication: Hypokalemia On: 22-Oct-2017 Request Comments: fax a copy to Dr. Caitlin [id number] Huang [phone] Metabolic Panel, Comprehensive ([id number])Indication: Hypokalemia On: 15-Oct-2017 Request Comments: fax a copy to Dr. Tucker [phone] Huang [phone] Metabolic Panel, Comprehensive (89857)Indication: Hypokalemia On: 08-Oct-2017 Request Comments: fax a copy to Dr. Caitlin May [phone] Huang [phone] Metabolic Panel, Comprehensive (31514)Indication: Hypokalemia On: 01-Oct-2017 Request Comments: fax a copy to Dr. Caitlin May [phone] Huang [phone] Metabolic Panel, Comprehensive (85384)Indication: Hypokalemia On: 24-Sep-2017 Request Comments: fax a copy to Dr. Caitlin May [phone] Huang [phone] Renal function Panel (85404)Indication: Renal insufficiency (Renamed from Renal function impairment) On: 33-Kqb-394548:23 Request URIC ACID BLOOD ([id number])Indication: Abnormal laboratory test On: 88-Qqz-575966:53 Request Metabolic Panel, Comprehensive (24029)Indication: Hypokalemia On: 17-Sep-2017 Request Comments: fax a copy to Dr. Caitlin May [phone] Huang [phone] Metabolic Panel, Comprehensive ([id number])Indication: Hypokalemia On: 10-Sep-2017 Request Comments: fax a copy to Dr. Caitlin May [phone] Huang [phone] Metabolic Panel, Basic (95091)Indication: Cardiomyopathy On: 55-Scg-539263:02 Request Comments: now stat and prn CREATININE BLOOD (88361)Indication: Left leg swelling On: 64-Wrq-830397:05 Request Metabolic Panel, Basic ([id number])Indication: Renal insufficiency (Renamed from Renal function impairment) On: 87-Rhc-322232:16 Request Comments: re check in 4 weeks T4, FREE (THYROXINE) ([id number])Indication: Hypothyroidism On: 06-Nsg-257275:49 Request CALCIFIDIOL (18198) VIT D 25Indication: Vitamin D deficiency On: 68-Yrg-287887:47 Request TSH (THYROID STIMULATING HORMONE) (47478)Indication: Hypothyroidism On: 64-Kix-591045:46 Request CREATININE BLOOD (34285)Indication: Abdominal pain, acute On: 31-Lbn-572727:34 Request Metabolic Panel, Basic (80815)Indication: Abdominal pain, acute On: 17-Qdq-91372:31 Request T4, FREE (THYROXINE) ([id number])Indication: Hypothyroidism On: :30 Request TSH ([id number])Indication: Hypothyroidism On: :30 Request METABOLIC PANEL, COMPREHENSIVE (42545)Indication: DVT, bilateral lower limbs On: 82-Zvr-128134:48 Request PTT (Activated Partial Thromboplastin Time) ([id number])Indication: DVT, bilateral lower limbs On: :29 Request PT (Prothrobim Time) ([id number])Indication: DVT, bilateral lower limbs On: 76-Hce-351536:29 Request Factor 2 (Prothrombin) Gene Mutation (78201)Indication: DVT, bilateral lower limbs On: :29 Request Factor V Leiden (07280)Indication: DVT, bilateral lower limbs On: :28 Request Antiphospholipid atb (09335)Indication: DVT, bilateral lower limbs On: :28 Request CBC, Platelets & Auto Diff (37266)Indication: Abdominal pain, acute On: 90-Jex-43600:38 Request Comments: coipy to Dr. jessie armendariz stat HEPATIC FUNCTION PANEL (10397)Indication: Abdominal pain, acute On: :37 Request Comments: to stat copy to Dr. natalie armendariz Metabolic Panel, Comprehensive (77166)Indication: Abdominal pain, acute On: :23 Request Comments: all STAT Sed Rate Erythrocyte (06777)Indication: Abdominal pain, acute On: 42-Tta-53460:19 Request CBC, Platelets & Auto Diff (75288)Indication: Abdominal pain, acute On: :19 Request Ferritin (50378)Indication: Abnormal RBC indices On: :08 Request CALCIFEDIOL (26661)Indication: Vitamin D deficiency On: :02 Request Folic Acid Serum (85751)Indication: Memory impairment On: :35 Request Methymalonic Acid, Serum (04898)Indication: Memory impairment On: :35 Request Vitamin B-12 (cyanocobalamin) (99099)Indication: Memory impairment On: :35 Request Metabolic Panel, Basic (45849)Indication: Cardiomyopathy in other diseases classified elsewhere On: :43 Request Urinalysis, Office (17500)Indication: Abdominal pain, acute On: 54-Zgt-915975:47 Request URINE DAR CULTURE-IDENTIFICATN (42549)Indication: Abdominal pain, acute On: 41-Qvu-773159:20 Request TSH (48894)Indication: Hypothyroidism On: 51-Pys-539926:50 Request Comments: 8 weeks TSH (89393)Indication: Hypothyroidism On: :58 Request URINALYSIS, W/ MICRO (95655)Indication: Coronary artery disease On: :57 Request METABOLIC PANEL, COMPREHENSIVE (23954)Indication: Coronary artery disease On: :57 Request LIPID PANEL (28598)Indication: Coronary artery disease On: :57 Request CBC with auto diff (70255)Indication: Coronary artery disease On: :57 Request C-REACTIVE PROTEIN (95140)Indication: Abdominal pain, acute, generalized On: 16-Lbj-712678:31 Request Comments: stat CBC W/AUTO DIFF WBC (00306)Indication: Abdominal pain, acute, generalized On: :31 Request Comments: stat METABOLIC PANEL, COMPREHENSIVE (45143)Indication: Abdominal pain, acute, generalized On: :31 Request Comments: stat SED RATE ERYTHROCYTE (23778)Indication: Abdominal pain, acute, generalized On: 89-Vwr-793343:26 Request CBC with auto diff ([id number])Indication: Cardiomyopathy On: :59 Request Comments: copy to Dr. valerio URINALYSIS, W/ MICRO ([id number])Indication: Cardiomyopathy On: :58 Request METABOLIC PANEL, COMPREHENSIVE (63021)Indication: Cardiomyopathy On: :58 Request LIPID PANEL (38963)Indication: Cardiomyopathy On: :58 Request TSH ([id number])Indication: Hypothyroidism On: :58 Request CBC W/AUTO DIFF WBC (65096)Indication: Coronary artery disease On: :08 Request Comments: copy to cardiology TSH ([id number])Indication: Hypothyroidism On: :08 Request URINALYSIS, W/ MICRO ([id number])Indication: Coronary artery disease On: :08 Request METABOLIC PANEL, COMPREHENSIVE (79372)Indication: Coronary artery disease On: :08 Request LIPID PANEL (58081)Indication: Coronary artery disease On: :08 Request METABOLIC PANEL, COMPREHENSIVE ([id number])Indication: Coronary artery disease On: :15 Request Comments: 05-24 CBC WITH MANUAL DIFF ([id number])Indication: Coronary artery disease On: :15 Request Comments: 05-24 TSH ([id number])Indication: Hypothyroidism On: 93-Tmv-256292:13 Request TSH ([id number])Indication: Hypothyroidism On: 47-Dqk-377841:18 Request CBC WITH MANUAL DIFF ([id number])Indication: Coronary artery disease On: 8-Rsb-722664:11 Request Comments: copy to [facility] URINALYSIS, W/ MICRO ([id number])Indication: Coronary artery disease On: 8-Eej-455871:11 Request METABOLIC PANEL, COMPREHENSIVE ([id number])Indication: Coronary artery disease On: 4-Mvl-034761:11 Request LIPID PANEL ([id number])Indication: Coronary artery disease On: 9-Ela-574491:11 Request TSH ([id number])Indication: Hypothyroidism On: 6-Mil-457571:11 Request TSH (67703)Indication: Hypothyroidism On: 83-Alk-057178:02 Request METABOLIC PANEL, COMPREHENSIVE ([id number])Indication: Cardiomyopathy On: 35-Mgu-420611:02 Request LIPID PANEL ([id number])Indication: Cardiomyopathy On: 21-Tsv-435949:02 Request CBC WITH MANUAL DIFF ([id number])Indication: Cardiomyopathy On: 85-Ndo-683774:02 Request TSH ([id number])Indication: Hypothyroidism On: :29 Request Renal function Panel (65803)Indication: Renal insufficiency (Renamed from Renal function impairment) On: 47-Ozj-785469:29 Request CBC (Auto) ([id number])Indication: Cardiomyopathy On: :40 Request Metabolic Panel, Comprehensive ([id number])Indication: Cardiomyopathy On: :40 Request T4, FREE (THYROXINE) ([id number])Indication: Hypothyroidism On: 05-Hcg-382287:39 Request TSH ([id number])Indication: Hypothyroidism On: 41-Rpq-248316:39 Request TSH ([id number])Indication: Hypothyroidism On: 2-Dio-079535:09 Request CBC (Auto) ([id number])Indication: Cardiomyopathy On: 9-Xmp-874740:08 Request Renal function Panel (85382)Indication: Cardiomyopathy On: :08 Request Metabolic Panel, Basic ([id number])Indication: Cardiomyopathy On: :03 Request T4, FREE (THYROXINE) (09451)Indication: Hypothyroidism On: :03 Request TSH ([id number])Indication: Hypothyroidism On: :03 Request Metabolic Panel, Basic ([id number])Indication: Renal insufficiency (Renamed from Renal function impairment) On: 13-Mab-125848:36 Request T4, FREE (THYROXINE) ([id number])Indication: Hypothyroidism On: :35 Request TSH ([id number])Indication: Hypothyroidism On: :35 Request DAR CULTURE-OTHER (55893)Indication: Bursitis, olecranon On: 8-Liw-283949:18 Request Comments: olecranon bursa Metabolic Panel, Basic ([id number])Indication: Hyperlipemia On: 32-Yot-902616:09 Request Metabolic Panel, Basic (47011)Indication: Gastroenteritis On: 31-Ybx-910534:56 Request Comments: stat CBC (Auto) ([id number])Indication: Gastroenteritis On: 86-Lau-564776:56 Request Metabolic Panel, Basic (77697)Indication: Cardiomyopathy On: :53 Request TSH ([id number])Indication: PVT (paroxysmal ventricular tachycardia) On: 29-Qus-725254:53 Request URINALYSIS ([id number])Indication: Cardiomyopathy On: :53 Request CBC (Auto) ([id number])Indication: Cardiomyopathy On: 76-Dad-491687:53 Request INFCT ANTGN TRICH VAGIN DIRECT PRB ([id number])Indication: Vaginal discharge On: 71-Skj-999133:31 Request GARDNERELLA VAG, NUCLEIC ACID DIR PROBE ([id number])Indication: Vaginal discharge On: :31 Request ILEANA, NUCLEIC ACID DIRECT PROBE ([id number])Indication: Vaginal discharge On: 16-Rjn-464966:31 Request Planned Encounters Medical; [facility] 2 Month FU - On: 06-Jul-2018 10:15 [facility] Clary TIRADO, Minerva Oseguera MD Planned Procedures Flu Vaccine (Quadrivalent) On: 01-Jun-2018 Intent 25495Ol: Visit, Nurse Comments: Lot #[id number]-L dltd, IMDose prefilled syringegiven by:SORAIDA Calloway reviewed and ABN signed Aerosol Treatment (27072)By: On: 08-Jan-2018 Intent Clary TIRADO, Minerva Oseguera MD SCREENING DIGITAL On: 23-Sep-2017 Intent TOMOSYNTHESIS OF BREAST (21659)By: Minerva Vergara MD, MD, Dana M Venous Doppler - LowerBy: On: 23-Sep-2017 Intent Minerva Vergara MD Comments: lower left extremity follow up on DVT from 07-27 due october Minerva TIRADO CTA ABDOMEN AND PELVIS On: 28-Jul-2017 Intent INCLUDING IMAGE POSTPROCESSING (63857)By: Clary TIRADO, Minerva Oseguera MD VENOUS DOPPLER LOWER On: 28-Jul-2017 Intent EXTREMITY (20611)By: Clary Comments: upper and lower left legcall results to [phone] Minerva TIRADO MD, Dana M Radiology - [...] FLAT PLATE AND On: 04-Dec-2016 Intent ERECT ([id number])By: Ida Quiñonez DO CT - Chest (IV Contrast On: 04-Dec-2016 Intent Needed)By: Ida Quiñonez DO Comments: pe protocol today CT - Abdomen (Without On: 25-Nov-2016 Intent Contrast)By: Minerva Vergara MD, MD, Dana M Spirometry (14358)By: On: 31-Oct-2016 Intent Minerva Vergara MD Comments: see scanned document of test done to see results reviewed today with patient Minerva TIRADO Radiology - ChestBy: Clary On: 31-Oct-2016 Intent Minerva TIRADO MD, Dana M Comments: call wet read Radiology - KUBBy: Clary On: 31-Oct-2016 Intent Minerva TIRADO MD, Dana M Comments: upright. call wet read to [phone] Bone Density StudyBy: Clary On: 29-Jul-2016 Intent Minerva TIRADO MD, Dana M MAMMOGRAM, BILATERAL On: 29-Jul-2016 Intent (38030)By: Minerva Vergara MD, MD, Dana M Flu Vaccine (Quadrivalent) On: 09-May-2016 Intent 03145Nw: Slarb BODY SERVICE TEAM MEMBER, Meka ELECTROCARDIOGRAM, COMPLETE On: 09-Aug-2015 Intent (ECG) (71469)By: Memo Armendariz CNP Radiology - ChestBy: Clary On: 17-Jul-2015 Intent Minerav TIRADO MD, Dana M Aerosol Treatment (94189)By: On: 14-Jul-2015 Intent Minerva Vergara MD, MD, Dana M Aerosol Treatment (05393)By: On: 29-May-2015 Intent Slarb BODY SERVICE TEAM MEMBER, Meka ADMINISTRATION OF INFLUENZA On: 25-Apr-2015 Intent VIRUS VACCINE (G0008)By: Minerva Vergara MD, MD, Dana M Flu Vaccine (Quadrivalent) On: 25-Apr-2015 Intent 00812Rt: Minerva Vergara MD Comments: lot: [id number]: 01/07/16site/route: L del/IMamt: 0.5mLVIS signed when applicableИВАН Rodriguez MD, Dana M ACUTE ABDOMINAL SERIES On: 27-Mar-2015 Intent (53505)By: Ida Quiñonez DO Comments: stat call wet read INFUSION, NORMAL SALINE On: 04-Nov-2014 Intent SOLUTION , 1000 CC (Special Comments: only 500 ccIV Therapy [id number], 1 inchSite: r acTolerated: well, x 2nd attempt. L ac infiltrated and rpessure applied then covered with gauze and bandageno redness or swelling, no s/s infiltrationMegan, BODY SERVICE TEAM MEMBER Coverage Instructions Apply. See MCM: 9) ([id number])By: Minerva Vergara MD, MD, Dana M Radiology - KUBBy: Clary On: 04-Nov-2014 Minerva Wright MD, MD, Dana M Comments: do today and call over wet read Radiology - Shoulder - On: 04-Nov-2014 Intent RightBy: Minerva Vergara MD, MD, Dana M Wax CurettesBy: Clary TIRADO, On: 15-Sep-2014 Intent Minerva Oseguera MD Ear Irrigation ([id number])By: On: 15-Sep-2014 Intent Minerva Vergara MD, MD, Dana M Radiology - Shoulder - On: 15-Sep-2014 Intent RightBy: Minerva Vergara MD, MD, Dana M Radiology - ChestBy: Clary On: 15-Sep-2014 Intent Minerva TIRADO MD, Dana M Comments: by next week if not better with atb Aerosol Treatment (45637)By: On: 01-Sep-2014 Intent Memo Armendariz CNP DEXA SCAN AXIAL SKELETON On: 18-Feb-2014 Intent (37611)By: Minerva Vergara MD, MD, Dana M MAMMOGRAM, SCREENING, BOTH On: 18-Feb-2014 Intent BREAST (60652)By: Minerva Vergara MD, MD, Dana M INFUSION, NORMAL SALINE On: 29-Oct-2013 Intent SOLUTION , 250 CC (Special Coverage Instructions Apply. See MCM: 2049) (J7050)By: Tiera Carmen DO IV Needle placement On: 29-Oct-2013 Intent (27359)By: Kermit WEBER, Comments: 3rd attempt successful in R RJ Wagner Tiera IV Infusion (26111)By: Kermit On: 29-Oct-2013 Tiera Wright DO Eprescribed prescriptions On: 29-Oct-2013 Intent (G8553)By: Tiera Carmen DO Aerosol Treatment (77663)By: On: 29-Oct-2013 Intent Tiera Carmen DO Solu- Medrol Injection, 125mg On: 29-Oct-2013 Intent (J2930)By: Kermit WEBER, Comments: lot: [id number]: 12/23site/route: RGM/IMamt:2mLVIS signed when applicableChelsИВАН gutiérrez Tiera Eprescribed prescriptions On: 26-Oct-2013 Intent (G8553)By: Clary TIRADO, Minerva Oseguera MD Wax CurettesBy: Ciglenysa PARKING LOT SUPERVISOR, On: 22-Oct-2013 Intent Saba Ear Irrigation (35526)By: On: 22-Oct-2013 Intent Ciesa PARKING LOT SUPERVISOR, Saba Eprescribed prescriptions On: 25-Jun-2013 Intent (G8553)By: Jeanne Gil LPN Wax CurettesBy: Clary TIRADO, On: 18-Jun-2013 Intent Minerva Vergara MD, Minerva Painting Ear Irrigation (41486)By: On: 18-Jun-2013 Intent Clary TIRADO, Minerva Vergara MD, Minerva Painting Eprescribed prescriptions On: 18-Jun-2013 Intent (G8553)By: Jeanne Gil LPN MAMMOGRAM, SCREENING, BOTH On: 16-Mar-2013 Intent BREASTS (19542)By: Clary Comments: 06-23 maddi TIRADO, Minerva Vergara MD, Minerva Painting Wax CurettesBy: Clary TIRADO, On: 16-Mar-2013 Intent Minerva Vergara MD, Minerva Painting Ear Irrigation (09946)By: On: 16-Mar-2013 Intent Minerva Vergara MD, MD, Dana M Inhaler Demonstration On: 15-Feb-2013 Intent (46680)By: Memo Armendariz CNP Aerosol Treatment (62499)By: On: 15-Feb-2013 Intent Memo Armendariz CNP Eprescribed prescriptions On: 08-Dec-2012 Intent (G8553)By: Jeanne Gil LPN Aerosol Treatment (76341)By: On: 03-Dec-2012 Intent Minerva Vergara MD, MD, Dana M Pulse Oximetry (01044)By: On: 03-Dec-2012 Intent ARON Lawrence Wax CurettesBy: Kala HAZEL, On: 25-Nov-2012 Intent Memo Weeks Ear Irrigation (58831)By: On: 25-Nov-2012 Intent Memo Armendariz CNP SPECIMEN HNDLNG/TRNSPRT, OFFC On: 25-Nov-2012 Intent > LAB (75583)By: Nova Posadas LPN Breast Screening - On: 28-Apr-2012 Intent BilateralBy: Minerva Vergara MD, MD, Dana M Bone Density StudyBy: Clary On: 28-Apr-2012 Intent Minerva TIRADO MD, Dana M Aerosol Treatment (38695)By: On: 28-Apr-2012 Intent Minerva Vergara MD, MD, Dana M TDAP VACCINE >7 IM (49685)By: On: 06-Feb-2012 Intent Sneha Vasquez doppler/ultrasound - right On: 20-Jan-2012 Intent calfBy: Minerva Vergara MD Comments: attention subcutaneous mass, history of clots Minerva Vergara MD Ear Irrigation (26815)By: On: 11-Oct-2011 Intent Minerva Vergara MD Comments: med amt of wax removed from the left ear. small amt of wax removed from the right ear. pt tolerated well. Minerva TIRADO Wax CurettesBy: Clary TIRADO, On: 11-Oct-2011 Intent Minerva Oseguera MD Aerosol Treatment (92545)By: On: 08-Oct-2011 Intent Memo Armendariz CNP Aerosol Treatment (76252)By: On: 04-Oct-2011 Intent Memo Armendariz CNP EKG (47226)By: Clary TIRADO, On: 15-Aug-2011 Intent Minerva Oseguera MD Comments: see scanned document. Nerve ConductionBy: Clary On: 29-Jul-2011 Intent Minerva TIRADO MD, Dana M Comments: lower leg EMGBy: Minerva Vergara MD On: 29-Jul-2011 Intent Minerva Vergara MD Solu -Medrol Injection, 125 On: 16-Apr-2011 Intent mg (J2930)By: Kala HAZEL, Comments: Lot:[id number]:sep 11 2013Amt:125mgRoute:IMSite:right hip Given By: RJ Soriano Memo Weeks THER/PROPH/DIAG IV INF, INIT On: 15-Feb-2011 Intent (98386)By: Minerva Vergara MD, MD, Dana M Rocephin [...] Minerva TIRADO MD, Dana M Pulse Oximetry (71944)By: On: 03-Sep-2010 Intent ARON Lawrence Radiology - Lumbar SpineBy: On: 29-Aug-2010 Intent Ida Quiñonez DO Comments: call wet read Venous Doppler - LeftBy: On: 23-Jul-2010 Intent Minerva Vergara MD Comments: leg. send copy Dr. Thompson in [place] orthosMinerva lovett MD HYDRATION IV INFUSION, INIT On: 28-Jun-2010 Intent (39956)By: Minerva Vergara MD Comments: only gave 500 cc of LR with CMP historyLot #:[id number] date:mount given:500ml Route: IVSite given:left wrist Given by: Keradermssell Butterfly needle placed to left wrist with [...] patient does have durable power of civil litigation attorney and living will. The patient has noticed nothing from the geriatic depression scale. Other providers contributing to the patient's care are manager of data and other: (Dr. Tucker Endocrine). Encounter Diagnosis: [...] cancer screening up to date- drove to [place] few weeks ago- no family hx of [...] patient does have durable power of civil litigation attorney and living will. The patient has noticed having problems with memory than others and lack of energy. Other providers contributing to the patient's care are manager of data (Reina) and other: (eye doctor - has [...] Nutrition: balanced diet and supplemental vitamins. The ia dical issues the patient is following up [...] [facility] End: 19-Apr-2011 10:08 Implant Surgeon [place], [place] ) . There have been no [...]
--- OUTSIDE RECORDS SUMMARY | 2018-09-02 18:25 | XMS RPT_ITS | Continuity of Care Document ---
:1940 Author Organization [facility] Address [facility] 2 [place] [address] Phone Care Team Providers Name Role Phone [...] left leg wtih DVT or overall fluid [id number] 20% Status: Active Constipation (K59.00, 564.00) Comments: [...] neurotin and help some. Dr at [facility] not want to do surgery. using [...] Puff(s) daily for 30 days Quantity: 1 {Sidon} Refills: 5 Ordered:22-Jan-2018 Khang DO, Ida A [...] for 10 days Refills: 0 Ordered:26-Oct-2013 Long MUSEUM EXHIBIT DESIGNERJeanne Start : 22-Oct-2013 End : 01-Nov-2013 Inactive [...] : 29-Jul-2011 End : 15-Aug-2011 Inactive MEDROL (EYSY), 4MG (Oral Tablet) 1 (one) Tablet uad [...] Quantity: 1 {Aerosol_Soln} Refills: 0 Ordered:21-Aug-2012 ARON Lawernce Start : 04-Oct-2011 End : 21-Aug-2012 Inactive TAMIFLU, 75MG (Oral Capsule) 1 (one) Capsule bid for 5 days Quantity: 10 {Capsule} Refills: 0 Ordered:01-Sep-2014 Memo Amrendariz CNP Start : 01-Sep-2014 End : 06-Sep-2014 [...] prn (5 MG) End : 14-Jun-2015 Discontinued Comments:[facility] DOXYCYCLINE HYCLATE, 100MG (Oral Tablet) 1 [...] Vaginal Cream 1 (one) Cream twice weekly MN 1gm and small amount over urethra for [...] Hospital discharge follow-up (Z09, V67.59) Comments: pneumonia [facility] 03-31-17 to 04-02-17 Status: Resolved as [...] Status: Inactive as of 04-Apr-2017 Vaccine for qxuzixhuue-cnlfgud-edrrbkylm with poliomyelitis (Z23, V06.3) Status: Inactive as [...] Dates Details [facility]x 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 [place] [address] Pacemaker Check Date of Service: 05/01/18 1428 MR#: [id number] Acct: [id number] Name: IRIS ARRIAGA Rep #: [id number] : 1940 From: Kim Pickard Age/Sex: 78/F Location: [facility] [place] Status: Signed Billing Codes ICD Device Billing: ICD Dev Prog Eval, Single 05/01/18 1430 <Elect ronically signed by Kim Pickard > Date Kim Pickard 05/01/18 1634<Electronically signed by Gurdeep Huang MD> Cosigner Sign ature: Date (if applicable) Gurdeep Huang MD CC: 18-Mar-2018 Pulmonary Visit Report Result: Comments: See Note; NOTES: [facility] [place] [address] [place] [address] OFFICE VISIT Date of Service: 03/18/18 MR#: [id number] Acct: [id number] Name: IRIS STRINGER CH Rep #: [id number] : 1940 Provider: Glenna Anderson Age/Sex: 78/F Location: [facility] [place] Status: Signed Assessment AND Plan Problems 1. [...] 2 spray INTRANASAL QDAY 01/20/18 [History] [facility]LY [facility] Medical History Thrombophlebitis of left internal iliac [...] Pacemaker Check Result: Comments: See Note; NOTES: [facility] [address] [place] [address] Pacemaker Check Date of Service: 01/28/18 1424 MR#: [id number] Acct: [id number] Name: ETHEL, IRIS S Rep #: [id number] : 1940 From: Kim Pickard Age/Sex: 78/F Location: [facility] Status: Signed Comments Summary Comments: Single Chamber ICD Report: See attached scanned javascript programmer Repor t. Interrogation shows no VT/VF [...] in office Interview Reason: routine follow up Gold Beater: Medtronic Name: Protecta VR Model: [id number] Serial #: [id number] Implant Date: 04/29/13 Year(s): 4 Implant Physician: Dr. Jose Murphy Patient Characteristics Atrial Indication: Paroxysmal atrial fibrillation Ventricular Indication: Nonsustained VT Patient Substrate: Nonischemic cardiomyopathy By: Echo Implant DFT: 18J Underlying rhythm: Sinus rhythm Pacemaker Dependent: No Device Characteristics Device: Single Chamber Type: Implantable defibrillator Remote Follow-Up: No Device Physical Exam Yes Incision well healed Leads Lead #1 Gold Beater Lead 1: Medtronic Model Lead 1: 5076 Serial# Lead 1: [id number] Date Implanted Lead 1: 09/03/04 Position Lead 1: RV Lead #2 Gold Beater Lead 2: Medtronic Model Lead 2: 6943 Serial# Lead 2: [id number] Date Implanted Lead 2: 11/18/00 Position Lead [...] Lower Extremity Result: Comments: See Note; NOTES: [facility] Cardiovascular Services [address] [place] [address] Venous Duplex US, Unilateral 10/27/17 0952 MR#: [id number] Acct: [id number] Name: IRIS HOU Rep #: [id number] : 1940 77 From: Alejandro Armendariz MD [...] Date Dictated: 10/27/17 0952 Date Transcribed: 10/27/171613 Supervisor Fur Dressing: Signed 15-Oct-2017 Pulmonary Visit Report Result: Comments: See Note; NOTES: [facility] [address] [place] [address] OFFICE VISIT Date of Service: 10/15/17 MR#: [id number] Acct: [id number] Name: IRIS STRINGER CH Rep #: [id number] : 1940 Provider: Glenna Anderson Age/Sex: 77/F Location: [facility] [place] Status: Signed Assessment AND Plan 1. URMILA [...] Plan Detail Follow Up 3 Months (MIRNA) [facility] Hospital FU: Chief [...] body aches. She has not utilized any zllv-sks-atoaova medications for her shortness of breath. Intake [...] (CAD), BILAT Result: Comments: See Note; NOTES: [facility] Imaging Services [address] [place] [address] SCREENING MAMM (CAD), BILAT MR#: [id number] Acct: [id number] Name: IRIS ARRIAGA Rep #: [id number] : 1940 F 77 From: Ed Fink MD PCP: Minerva Vergara MD Status: REG CLI Study: SCREENING MAMM (CAD), BILAT Date of Exam: 10/14/17 Exam# [id number] Ordering Dr: Minerva Vergara MD MAMMOGRAPHY - [...] delay biopsy of a clinically suspicious abnormality. [id number] Electronically Signed: Ed Fink MD at 11:10 EST Tel [phone], Service support , CC: Minerva Vergara MD Supervisor Fur Dressing: Signed 06-Oct-2017 Office Visit Report Result: Comments: See Note; NOTES: [facility] [address] [place] [address] OFFICE VISIT Date of Service: 09/25/17 MR#: [id number] Acct: [id number] Patient: IRIS ARRIAGA Rep #: [id number] : 1940 Provider: Kim Pickard Age/Sex: 77/F Location: [facility] [place] Status: Signed Comments Summary Comments: Single Chamber ICD Evaluation: Interrogation shows no VT/VF episodes since 06/17/17. Left pectoral pocket/incision w/o s/s of infection or erosion. Pt offers no cardiac complaints. Presenting rhythm shows NSR @ 92 bpm. LINSEED OIL BOILER=<0.1%. Lead impedance, sensing and pace/sense thres hold remain stable. No parameter changes made. Counters cleared. Next f/u appt scheduled for in 3 mos. Device Device Date Interviewed: 09/25/17 Follow-up Location: in office Interview Reason: routine follow up Gold Beater: Medtronic Name: Protecta VR Model: [id number] Serial #: [id number] Implant Date: 04/29/13 Year(s): 4 Implant Physician: [...] Incision well healed Leads Le ad #1 Gold Beater Lead 1: Medtronic Model Lead 1: 5076 Serial# Lead 1: [id number] Date Implanted Lead 1: 09/03/04 Position Lead 1: RV Additional Details: pace/sense lead Lead #2 Gold Beater Lead 2: Ne marcus Model Lead 2: 6943 Serial# Lead 2: [id number] Date Implanted Lead 2: 11/18/00 Position Lead [...] Visit Report Result: Comments: See Note; NOTES: [facility] [address] [place] [address] OFFICE VISIT Date of Service: 09/11/17 MR#: [id number] Acct: [id number] Name: IRIS ARRIAGA Rep #: [id number] : 1940 Provider: Gurdeep Huang MD Age/Sex: 77/F Location: [facility] [place] Status: Signed HPI 6 M FU: Details: [...] that she was evaluated for such at [facility]. During this time she does not believe [...] QHS tab 09/11/17 [History Confirmed 09/11/17] [facility] Medical History (Revi ewed 09/11/17 @ 13:50 [...] follow-up. She is due to see her wood cut engraver at [facility] in October of this year. [...] Lower Extremity Result: Comments: See Note; NOTES: [facility] Cardiovascular Services [address] [place] [address] Venous Duplex US, Unilateral 07/28/17 0942 MR#: [id number] Acct: [id number] Name: IRIS HOU Rep #: [id number] : 1940 77 From: Alejandro Armendariz MD [...] By: Sheridan Acuna RVT 07/28/171751 Date Alejandro Armendraiz MD CC: Minerva Vergara MD Date Dictated: 07/28/17941 Date Transcribed: 07/28/171751 Supervisor Fur Dressing: Signed 28-Jul-2017 CT ANGIO ABD AND PEL W/O AND W/DYE Result: Comments: See Note; NOTES: [facility] Imaging Services [address] [place] [address] CT ANGIO ABD AND PEL W/O AND W/DYE MR#: [id number] Acct: [id number] Name: IRIS ARRIAGA Rep #: [id number] : 1940 F 77 From: Apolinar Ansari DO PCP: Minerva Vergara MD Status: REG CLI Study: CT ANGIO ABD AND PEL W/O AND W/DYE Date of Exam: 07/28/17 Exam# [id number] Ordering Dr: Minerva Child i, MD STUDY: [...] Service support , CC: Minerva Vergara MD Supervisor Fur Dressing: Signed 19-Feb-2017 6 Minute Walk Test Result: Comments: See Note; NOTES: [facility] Pulmonary Services/Neurology [address] [place] [address] MR#: [id number] Acct: [id number] Name: IRIS ARRIAGA Rep #: [id number] : 1940 77 From: Jeremie Schultz MD Referring Dr: Bruno Barcenas D.O. Date: Ordering Dr: Sex: F C Location: PSN PSN 6 Minute Walk Test - 6 Minute Walk Test 6 Minute Walk Test: 6 Minute Walk Test PS N:6-Minute Walk Test Start: 02/19/17 12:50 Freq: Status: Active Document 02/19/17 12:50 FR (Rec: 02/19/17 12:53 FR [id number]) 6 Minute Walk Test Date Performed 02/19/17 [...] Date Dictated: 02/19/17 1553 Date Transcribed: 02/19/171552 Supervisor Fur Dressing: Jeremie Schultz Signed 03-Jan-2017 Abdomen/Pelvis WITH Contrast Result: Comments: See Note; NOTES: [facility] Imaging Services [address] [place] [address] Verdana 4d Abdomen/Pelvis WITH Contrast MR#: [id number] Acct: [id number] Name: JARON ARRIAGA Rep #: [id number] : 1940 F 76 From: Ed Fink MD PCP: Minerva Vergara MD Status: REG CLI Study: Abdomen/Pelvis WITH Contrast Date of Exam: 01/03/17 Exam# [id number] Ordering Dr: Minerva Bartlett MD STUDY: CT [...] Ed Fink MD at 13:03 EDT Tel [phone], Service support , CC: Minerva Vergara MD Supervisor Fur Dressing: Signed 01-Jan-2017 Pulmonary Function Report Comp Result: Comments: See Note; NOTES: [facility] Pulmonary Services/Neurology [address] [place] [address] Pulmonary Function Test (Comp) MR#: [id number] Acct: [id number] Name: CATHLEEN ARRIAGA Rep #: [id number] : 1940 76 From: Bruno Barcenas DO Referring Dr: Minerva Vergara MD Status: REG CLI Ordering Dr: Minerva Vergara MD Date: 12/31/16 Location: [facility] Sex: F C DATE OF SERVICE: 12/10 [...] C: Referring Provider . T: NTS JOB: [id number] 01/01/17 1057 <Electronically signed by Christian Barcenas DO> Date Bruno Barcenas DO CC: Minerva Vergara MD; Bruno Barcenas D.O. Date Dictated: 12/31/16 160 Date Transcribed: 12/31/161600 Supervisor Fur Dressing: Signed 26-Dec-2016 Echocardiogram Complete Result: Comments: See Note; NOTES: [facility] Cardiovascular Services [address] [place] [address] Echo Complete 12/25/16 1357 MR#: [id number] Acct: [id number] Name: IRIS ARRIAGA Rep #: [id number] : 1940 76 From: Gurdeep Huang MD [...] Dictated: 12/25/16 1357 Date Transcribed: 12/26/16 09 Supervisor Fur Dressing: Signed 04-Dec-2016 Abd Inc Decub and/or Erect Result: Comments: See Note; NOTES: [facility] Imaging Services [address] [place] [address] Verdana 4d Abd Inc Decub and/or Erect MR#: [id number] Acct: [id number] Name: ARI ARRIAGA Jose Manuel Tucker Rep #: [id number] : 1940 F 76 From: Mele Brown MD PCP: Minerva Vergara MD Status: REG CLI Study: Abd Inc Decub and/or Erect Date of Exam: 12/04/16 Exam# [id number] Ordering Dr: Anita Quiñonez DO STUDY: X-RAY [...] CC: Minerva Vergara MD; Ida Quiñonez DO Supervisor Fur Dressing: Signed 04-Dec-2016 CTA Chest W/WO Contrast Result: Comments: See Note; NOTES: [facility] Imaging Services [address] [place] [address] 4d CTA Chest W/WO Contrast MR#: [id number] Acct: [id number] Name: IRIS ARRIAGA Rep #: [id number] : 1940 F 76 From: Ed Fink MD PCP: Minerva Vergara MD Status: REG CLI Study: CTA Chest W/WO Contrast Date of Exam: 12/04/16 Exam# [id number] Ordering Dr: Ida Quiñonez DO STUDY: CTA [...] Megan Fink MD at 15:43 EDT Tel [phone], Service support , CC: Minerva Vergara MD; Ida Quiñonez DO Supervisor Fur Dressing: Signed 03-Dec-2016 Venous Duplex Lower Extremity Result: Comments: See Note; NOTES: [facility] Cardiovascular Services [address] [place] [address] Venous Duplex US - David Extrem 12/03/16 1553 MR#: [id number] Acct: [id number] Name: IRIS ARRIAGA Rep #: [id number] : 1940 76 From: Alejandro Armendariz MD [...] 12/03/16 1553 Da te Transcribed: 12/03/16 1850 Supervisor Fur Dressing: Signed 02-Dec-2016 Abdomen without IV Contrast Result: Comments: See Note; NOTES: [facility] Imaging Services [address] [place] [address] Verdana 4d Abdomen without IV Contrast MR#: [id number] Acct: [id number] Name: CAMILA ARRIAGA Rep #: [id number] : 1940 F 76 From: Moses Chase MD PCP: Minerva Vergara MD Status: REG CLI Study: Abdomen without IV Contrast Date of Exam: 12/02/16 Exam# [id number] Ordering Dr: Minerva Broussard MD STUDY: CT [...] diverticulitis. The abdominal wall is intact. A Sealevel umbrella filter is in place but 4 [...] left.. CT/Abdomen without IV Contrast IMPRESSION: A Sealevel umbrella filter in place with at least [...] Service support , CC: Minerva Vergara MD Supervisor Fur Dressing: Signed 31-Oct-2016 Abd Inc Decub and/or Erect Result: Comments: See Note; NOTES: [facility] Imaging Services [address] [place] [address] Verdana 4d Abd Inc Decub and/or Erect MR#: [id number] Acct: [id number] Name: ARI ARRIAGA Rep #: [id number] : 1940 F 76 From: Ed Fink MD PCP: Minerva Vergara MD Status: REG CLI Study: Abd Inc Decub and/or Erect Date of Exam: 10/31/16 Exam# [id number] Ordering Dr: Minerva Vergara MD STUDY: X-RAY [...] Ed Fink MD at 10:26 EDT Tel [phone], Service support [phone], CC: Minerva Vergara MD Supervisor Fur Dressing: Signed 31-Oct-2016 Chest PA and Lateral Result: Comments: See Note; NOTES: [facility] Imaging Services [address] [place] [address] Verdana 4d Chest PA and Lateral MR#: [id number] Acct: [id number] Name: IRIS ARRIAGA Re p #: [id number] : 1940 F 76 From: Ed Fink MD PCP: Minerva Vergara MD Status: REG CLI Study: Chest PA and Lateral Date of Exam: 10/31/16 Exam# [id number] Ordering Dr: Minerva Vergara MD S DY: [...] dual-chamber pacemaker is seen. Normal mediastinum and juaan. Normal visualized pulmonary arteries. There is atherosclerotic [...] Ed Fink MD at 10:27 EDT Tel [phone], Service support [phone], CC: Minerva Vergara MD Supervisor Fur Dressing: Signed 26-Sep-2016 Dexa Bone Density Study (HP) Result: Comments: See Note; NOTES: [facility] Imaging Services [address] [place] [address] Verdana 4d Dexa Bone Density Study (HP) MR#: [id number] Acct: [id number] Name: JARON ARRIAGA Rep #: [id number] : 1940 F 76 From: Ed Fink MD PCP: Minerva Vergara MD Status: REG CL Study: Dexa Bone Density Study (HP) Date of Exam: 09/26/16 Exam# [id number] Ordering Dr: Minerva Bartlett MD STUDY: DUAL [...] Fink MD at 15:0 0 EST Tel [phone], Service support [phone], CC: Minerva Vergara MD Supervisor Fur Dressing: Signed 26-Sep-2016 SCREENING MAMM (CAD), BILAT Result: Comments: See Note; NOTES: [facility] Imaging Services [address] [place] [address] Verdana 4d SCREENING MAMM (CAD), BILAT MR#: [id number] Acct: [id number] Name: CAMILA ARRIAGA Rep #: [id number] : 1940 F 76 From: Ed Fink MD PCP: Minerva Vergara MD Status: REG CLI Study: SCREENING MAMM (CAD), BILAT Date of Exam: 09/26/16 Exam# [id number] Ordering Dr: Minerva Child i, MD MAMMOGRAPHY [...] delay biopsy of a clinically suspicious abnormality. [id number] Electronically Signed: Ed Fink MD at 7:48 EST Tel [phone], Service support [phone], CC: Minerva Vergara MD Supervisor Fur Dressing: Signed 09-Feb-2016 Operative Report Result: Comments: See Note; NOTES: [facility] Medical Records Department [address] [place] [address] Operative Report MR#: [id number] Acct: [id number] Name: CAMILA ARRIAGA Rep #: [id number] : 1940 76 From: Clifford Gifford MD [...] without difficulty to the cecum, identified by [place] appearance, ileocecal valve and appendiceal orifice. [...] patient. Kamari Gifford MD T: NTS JOB: [id number] 02/09/16 0706 <Electronically signed by Clifford Gifford MD> Date Clifford Gifford MD Cosign er Signature (If Indicated): Date CC: Clifford Gifford; Minerva Vergara MD Date Dictated: 01/30/16 0833 Date Transcribed: 01/30/16832 Supervisor Fur Dressing: Signed 15-Nov-2015 Gallbladder Result: Comments: See Note; NOTES: [facility] Imaging Services [address] [place] [address] Verdana 4d Gallbladder MR#: [id number] Acct: [id number] Name: IRIS ARRIAGA Rep #: [id number] : 1940 F 75 From: Sofia Storey MD PCP: Minerva Vergara MD Status: REG ER Study: Gallbladder Date of Exam: 11/15/15 Exam# [id number] Ordering Dr: Jalil Nogueira MD STUDY: ULTRASOUND [...] MD at 21:57 EDT , Service support [phone], F ax [phone] CC: Minerva Vergara MD; Jalil Nogueira MD Supervisor Fur Dressing: Signed 15-Nov-2015 Abdomen/Pelvis WITH Contrast Result: Comments: See Note; NOTES: [facility] Imaging Services [address] [place] [address] Verdana 4d Abdomen/Pelvis WITH Contrast MR#: [id number] Acct: [id number] Name : IRIS ARRIAGA Rep #: [id number] : 1940 F 75 From: Sofia Storey MD PCP: Bonezzi MD,Minerva Status: REG ER Study: Abdomen/Pelvis WITH Contrast Date of Exam: 11/15/15 Exam# [id number] Order ing Dr: Jalil Nogueira MD STUDY: [...] MD at 20:10 EDT , Service support [phone], CC: Minerva Vergara MD; Jalil Nogueira MD Supervisor Fur Dressing: Signed 31-Oct-2015 Cerv Spine 4 or 5 Views Result: Comments: See Note; NOTES: [facility] Imaging Services [address] [place] [address] Verdana 4d Cerv Spine 4 or 5 Views MR#: [id number] Acct: [id number] Name: IRIS WRAY Rep #: [id number] : 1940 F 75 From: Alexey Stephens MD PCP: Minerva Vergara MD Status: REG CLI Study: Cerv Spine 4 or 5 Views Date of Exam: 10/31/15 Exam# [id number] Ordering Dr: Tiffanie Corcoran DO STUDY: X-RAY [...] a t 13:54 EDT , Service support [phone], RAD/Cerv Spine 4 or 5 Views IMPRESSION: Severe cervical spondylosis. Electronically Signed: Earl Stephens MD, FACR at 13:54 EDT , Service support [phone], CC: Tiffanie Saha DO; Minerva Vergara MD Supervisor Fur Dressing: Signed 28-Sep-2015 PT D/C Summary (1) Result: Comments: See Note; NOTES: [facility] [address] [place], [place] [address] Fax REHABILITATION SE RVICES DISCHARGE SUMMARY MR#: [id number] Acct: [id number] Name: IRIS ARRIAGA Rep #: [id number] : 1940 75 From: Kelvin Newman DPT, [...] please feel free to call me at [phone]. Thank you for the referral of this patient. Sincerely, Kelvin Newman <Electronically signed by Kelvin Newman DPT, OCS, CSCS> 09/28/15 0944 CC: Minerva Vergara MD; Nerissa Bhat EBG Signed 24-Aug-2015 PT Communication Result: Comments: See Note; NOTES: [facility] [address] [place] [address] Fax REHABILITATION SE RVICES PROGRESS NOTE MR#: [id number] Acct: [id number] Name: IRIS ARRIAGA Rep #: [id number] : 1940 75 From: Kelvin Newman Referring Dr.: Nerissa Bhat Status: REG RCR Insurance: [employer] MEDICARE PPO ANTHEM PT Communication Note 08/24/15 Dear Mert Moore and Dr. Vergara, Thank you for the referral of Iris Arriaga to [facility] for physical therapy and balance assessment. I [...] - PT Result: Comments: See Note; NOTES: [facility] [address] [place] [address]. [address] [place] [address] Fax [facility] MR#: [id number] Acct: [id number] Name: IRIS ARRIAGA Rep #: [id number] : 1940 75 From: Kelvin Newman Referring DrTammi: Nerissa Bhat Status: REG RCR Insuranc e: [employer] MEDICARE PPO Eval Date: ANTH Patient's Visit Information IRIS ARRIGAA is a 75 year old F, referred to Physical Therapy by Mert Raygoza,, with a diagnosis of syncope, we akness. Date of Evaluation: 08/16/15 Physical Therapist: Kelvin Newman - Visit Plan Frequency: 2x /Week Duration: 4-6 Weeks - Subjective Fell at [place] in May and hurt head. Then p assed out shortly thereafter went to ER and was dehydrated. Went to Dr. vergara a couple weeks ago and was sent to ER for low blood pressure. Spent a few days in hospital and found that the pig valve is thickening. Will go to [place] later in month as Dr. Huang sent [...] to be FAXED BACK to us at [phone] for Medicare purp oses. Please let me know if there are questions or concerns regarding this plan of care. Physician Signature: Date: <Electron ically signed by Kelvin Newman > 08/17/15 0944 CC: Minerva Vergara MD; Nerissa Bhat EBG Signed For Medicare only, by signing this I certify the plan of care. Physicians Signature Date 09-Aug-2015 Brain/Head without Contrast Result: Comments: See Note; NOTES: [facility] Imaging Services [address] [place] [address] Verdana 4d Brain/Head without Contrast MR#: [id number] Acct: [id number] Name: IRIS ARRIAGA Rep #: [id number] : 1940 F 75 From: Robert Osborn MD PCP: Minerva Vergara MD Status: REG Study: Brain/Head without Contrast Date of Exam: 08/09/15 Exam# [id number] Ordering D r: Sneha Baptiste MD STUDY: [...] at 13:15 EST Tel , Service support [phone], CC: Minerva sierra MD; Sneha Baptiste MD Supervisor Fur Dressing: Signed 09-Aug-2015 Chest 1 View (Portable) Result: Comments: See Note; NOTES: [facility] Imaging Services [address] [place] [address] Verdana 4d Chest 1 View (Portable) MR#: [id number] Acct: [id number] Name: IRIS WRAY Rep #: [id number] : 1940 F 75 From: Robert Osborn MD PCP: Minerva Vergara MD Status: REG ER Study: Chest 1 View (Portable) Date of Exam: 08/09/15 Exam# [id number] Ordering Dr: Sneha Baptiste MD STUDY: X-RAY [...] at 12:43 EST Tel , Service support [phone], RAD/Chest 1 View (Portable) IMPRESSION: No acute pulmonary process, no interval change Electronically Signed: Josesito Osborn MD at 12:43 EST Tel , Service support [phone], CC: Minerva Vergara MD; Sneha Baptiste MD Supervisor Fur Dressing: Signed 20-Jul-2015 Chest PA and Lateral Result: Comments: See Note; NOTES: [facility] Imaging Services [address] [place] [address] Verdana 4d Chest PA and Lateral MR#: [id number] Acct: [id number] Name: IRIS ARRIAGA Rep #: [id number] : 1940 F 75 From: Ed Fink MD PCP: Minerva Vergara MD Status: REG CLI Study: Chest PA and Lateral Date of Exam: 07/20/15 Exam# [id number] Ordering Dr: Minerva Amezquita MD STUDY: X-RAY [...] Ed Fink MD at 13:14 EST Tel [phone], Service support , RAD/Chest PA and Lateral IMPRESSION: No acute abnormality is seen. Electronically Signed: Ed Fink MD at 13:14 EST Tel [phone] , Service support [phone], CC: Minerva Vergara MD Supervisor Fur Dressing: Signed 06-Jun-2015 Brain/Head without Contrast Result: Comments: See Note; NOTES: [facility] Imaging Services [address] [place] [address] Verdana 4d Brain/Head without Contrast MR#: [id number] Acct: [id number] Name: IRIS ARRIAGA Rep #: [id number] : 1940 F 75 From: Ed Fink MD PCP: Minerva Vergara MD Status: REG ER Study: Brain/Head without Contrast Date of Exam: 06/06/15 Exam# [id number] [place] sarojing Dr: Kermit Verduzco MD STUDY: CT [...] right parietal occipital bone. Electronically Signed: Ed iFnk MD a t 16:13 EDT Tel [phone], Service support [phone], CC: Minerva Vergara MD; Kermit Verduzco MD Supervisor Fur Dressing: Signed 06-Jun-2015 Chest 1 View (Portable) Result: Comments: See Note; NOTES: [facility] Imaging Services [address] [place] [address] Verda 4d Chest 1 View (Portable) MR#: [id number] Acct: [id number] Name: IRIS WRAY Rep #: [id number] : 1940 F 75 From: Farhad Cedillo MD PCP: Minerva Vergara MD Status: REG ER Study: Chest 1 View (Portable) Date of Exam: 06/06/15 Exam# [id number] Ordering Dr: Kermit Verduzco MD STUDY: X-RAY [...] at 17:06 EDT Tel , Service support [phone], [place] ER #: [id number] RAD/Chest 1 View (Portable) IMPRESSION: 1. Left-sided bipolar pacemaker seen with leads appearing in good position. 2. Moderate cardiomegaly. 3. Status post sternotomy changes. 4. There is no evidence of infiltrate, atelectasis, or pleural fluid. Electronically Signed: Farhad Cedillo MD at 17:06 EDT Tel , Service support [phone], Fax CC: Minerva Vergara MD; Kermit Verduzco MD Supervisor Fur Dressing: Signed 06-Jun-2015 Pelvis 1 or 2 Views Result: Comments: See Note; NOTES: [facility] Imaging Services [address] [place] [address] Verdana 4d Pelvis 1 or 2 Views MR#: [id number] Acct: [id number] Name: IRIS ARRIAGA Rep #: [id number] : 1940 F 75 From: Ed Fink MD PCP: Minerva Vergara MD Status: REG ER Study: Pelvis 1 or 2 Views Date of Exam: 06/06/15 Exam# [id number] Ordering Dr: Kermit Verduzco MD STUDY: X-RAY [...] Ed Fink MD at 16:15 EDT Tel [phone], Service support [phone], RAD/Pelvis 1 or 2 Views IMPRESSION: Status post bilateral total hip replacement. Elect ronically Signed: Ed Fink MD at 16:15 EDT Tel [phone], Service support [phone], CC: Minerva Vergara MD; Kermit Verduzco MD Supervisor Fur Dressing: Signed 06-Jun-2015 Spine Cervical without Contras Result: Comments: See Note; NOTES: [facility] Imaging Services [address] [place] [address] Verdana 4d Spine Cervical without Contras MR#: [id number] Acct: [id number] Na me: IRIS ARRIAGA Rep #: [id number] : 1940 F 75 From: Ed Fink MD PCP: Minerva Vergara MD Status: REG ER Study: Spine Cervical without Contras Date of Exam: 06/06/15 Exam# [id number]: Kermit Verduzco MD STUDY: [...] Ed Fink MD at 16:15 EDT Tel [phone], Service support [phone], CC: Minerva Vergara MD; Kermit Verduzco MD Supervisor Fur Dressing: Signed 19-Apr-2015 Spine Lumbar without Contrast Result: Comments: See Note; NOTES: [facility] Imaging Services [address] [place], [place] [address] [address] CAT Scan Report MR#: [id number] Acct: [id number] Name: IRIS ARRIAGA Rep #: [id number] : 1940 F 75 From: Tami Rodriguez MD PCP: Minerva Vergara MD Status: REG CLI Study: Spine Lumbar without Contrast Date of Exam: 04/19/15 Exam# [id number] Ordering Dr: Monica Mir, Out o. STUDY: [...] at 14:58 EDT Tel , Service support [phone], CC: Minerva Vergara MD; OUT OF TOWN DOCTOR Supervisor Fur Dressing: Signed 19-Apr-2015 Lumbar Myelogram Result: Comments: See Note; NOTES: [facility] Imaging Services [address] [place] [address] Radiology Report MR#: [id number] Acct: [id number] Name: IRIS ARRIAGA Rep #: [id number] : 1940 F 75 From: Tami Rodriguez MD PCP: Minerva Vergara MD Status: REG CLI Study: Lumbar Myelogram Date of Exam: 04/19/15 Exam# [id number] Ordering Dr: CRISTIAN COFFEY CLINICAL HISTORY : [...] at 15:12 EDT Tel , Service support [phone], RAD/Lumbar Myelogram IMPRESSI ON: There is severe spinal canal stenosis at L4-5. Electronically Signed: Jessy Rodriguez MD at 15:12 EDT Tel , Service support [phone], CC: Gina Vergara MD; CRISTIAN COFFEY Supervisor Fur Dressing: Signed 10-Apr-2015 Discharge Instruction Result: Comments: See Note; NOTES: [facility] Medical Records Department [address] [place] [address] Discharge Instruction 04/03/15 1440 MR#: [id number] Acct: [id number] Name: IRIS ARRIAGA Rep #: [id number] : 1940 75 From: Ellen Gilman MD [...] problems, contact your doctor. Call [facility] ([phone]) or report to the closest Emergency Room. Call 911 if necessary. 04/03/15 1441 <Electronically signed by Ellen Gilman MD> Date Ellen Gilman MD 04/10/15 0835<Electronically signed Juli Polanco MD> Cosigner Signature (If Indicated): Date Rickie Polanco MD CC: Minerva Vergara MD 10-Apr-2015 Discharge Instruction Result: Comments: See Note; NOTES: [facility] Medical Records Department [address] [place] [address] Discharge Instruction 04/03/15 1448 MR#: [id number] Acct: [id number] Name: IRIS ARRIAGA Rep #: [id number] : 1940 75 From: Rickie Polanco MD PCP: Minerva Vergara MD Status: DEP ER ED Disposition - Plan for ED Patient: Disposition: Home or Assisted Living C [facility] Complaint: Lower Extremity Injury Instructions: ED [...] problems, contact your doctor. Call [facility] ([phone]) or report to the closest Emergency Room. Call 911 if necessary. 04/10 0835 <Electronically signed by Rickie Polanco MD> Date Rickie Polanco MD Cosigner Signature (If Indicated): Date CC: Minerva Vergara MD 10-Apr-2015 Emergency Department Summary Result: Comments: See Note; NOTES: [facility] Medical Records Department [address] [facility] [address] Emergency Department Summary MR#: [id number] Acct: [id number] Name: IRIS VALENCIA Rep #: [id number] : 1940 75 From: Ellen Gilman MD PCP: iMnerva Vergara MD Status: DEP ER DATE OF [...] acute. Ellen Gilman MD T: NTS JOB: [id number] 04/05/15 0836 <Electronically signed by Ellen Gilman MD> Date Ellen Gilman MD 04/10/15 0835 <Electronically signed by Natanael Polanco MD> Cosigner Signature (If Indicated): Date Rickie Polanco MD CC: Minerva Vergara MD Date Dictated: 04/03/151454 Date Transcribed: 04/03/151454 Supervisor Fur Dressing: Signed 04-Apr-2015 12 Lead Electrocardiogram Result: Comments: See Note; NOTES: [facility] Cardiovascular Services [address] [place] [address] 12 Lead EKG 04/03/151350 MR#: [id number] Acct: [id number] Name: IGGY ARRIAGA Rep #: [id number] : 1940 75 From: Gurdeep Huang MD [...] ECG Confirmed by REINA TIRADO, GURDEEP ([id number]), communications editor CAROLEE MARIEE ([id number]) on 04/04/2015 10:27:52 AM Referred By: VALENTINA Confirmed By:GURDEEP HUANG MD 04/04/15 1027 Date Gurdeep Huang MD CC: Minerva Vergara MD Date Dictated: 04/03/151350 Date Transcribed: 04/03/151350 Supervisor Fur Dressing: Signed 03-Apr-2015 Femur 2 Views Result: Comments: See Note; NOTES: [facility] Imaging Services [address] [place] [address] Radiology Report MR#: [id number] Acct: [id number] Name: IRIS ARRIAGA Rep #: [id number] : 1940 F 75 From: Ed Fink MD PCP: Minerva Vergara MD Status: REG ER Study: Femur 2 Views Date of Exam: 04/03/15 Exam# [id number] Ordering Dr: Rickie Polanco MD STUDY: X- [...] Ed Fink MD at 12:59 EDT Tel [phone], Service support [phone], RAD/ Femur 2 Views IMPRESSION: No acute abnormality is seen. Electronically Signed: Ed Fink MD at 12:59 EDT Tel [phone], Service support [phone], CC: Minerva Vergara MD; Rickie Polanco MD Supervisor Fur Dressing: Signed 03-Apr-2015 Chest PA and Lateral Result: Comments: See Note; NOTES: [facility] Imaging Services [address] [place] [address] Radiology Report MR#: [id number] Acct: [id number] Name: IRIS ARRIAGA Rep #: [id number] : 1940 F 75 From: Ed Fink MD PCP: Minerva Vergara MD Status: REG ER Study: Chest PA and Lateral Date of Exam: 04/03/15 Exam# [id number] Ordering Dr: Ellen Gilman MD STUD Y: X-RAY CHEST REASON FOR EXAM: Female, 75 years old. Chest pain and chest tightness. TECHNIQUE: AP and lateral views of the chest. COMPARISON: Comparison is made with prior examination dated [place] 2014. FINDINGS: There is blunting of the [...] Ed Fink MD at 13:05 EDT Tel [phone], Service support [phone], Fax RAD/Chest PA and Lateral IMPRESSION: Mild degree of linear scarring at the lung bases and blunting of both costophrenic angles. Electronically Signed: Ed ledezma MD at 13:05 EDT Tel [phone], Service support [phone], CC: Ellen Gilman MD; Minerva Vergara MD Supervisor Fur Dressing: Signed 27-Mar-2015 Abd Inc Decub and/or Erect Result: Comments: See Note; NOTES: [facility] Imaging Services [address] [place] [address] Radiology Report MR#: [id number] Acct: [id number] Name: IRIS ARRIAGA Rep #: [id number] : 1940 F 75 From: Tylor Guzman DO PCP: Minerva Vergara MD Status: REG CLI Study: Abd Inc Decub and/or Erect Date of Exam: 03/27/15 Exam# [id number] Ordering Dr: Ida Quiñonez DO STUDY: X- [...] Guzman DO at 18:34 EDT Te l [phone], Service support [phone], 0093 RAD/Abd Inc Decub and/or Erect IMPRESSION: No acute abdominal pathology is noted. Electronically Signed: Tylor Guzman DO at 18:34 EDT Tel [phone], Service support [phone], CC: Minerva Vergara MD; Ida Quiñonez DO Supervisor Fur Dressing: Signed 20-Mar-2015 PT Discharge Summary Result: Comments: See Note; NOTES: [facility] [place] [address] Fax REHABILITATION SERVICES DISCHARGE SUMMARY MR#: [id number] Acct: [id number] Name: IRIS ARRIAGA Rep #: [id number] : 1940 75 From: Kelvin Newman Referring [...] program. Kelvin Newman, PT T: NTS JOB: [id number] <Electronically signed by Kelvin Newman > 03/20/15 0648 CC: Signed 25-Jan-2015 Chest PA and Lateral Result: Comments: See Note; NOTES: [facility] Imaging Services [address] [place] [address] Radiology Report MR#: [id number] Acct: [id number] Name: IRIS ARRIAGA Rep #: [id number] : 1940 F 75 From: Apolinar Ansari DO PCP: Minerva Vergara MD Status: REG CLI Study: Chest PA and Lateral Date of Exam: 01/25/15 Exam# [id number] Ordering Dr: Gurdeep Huang MD STUD Y: [...] at 5:42 EDT Tel , Service support [phone], RAD/Chest PA and Lateral IMPRESSION: Very minimal left basilar atel ectasis. Otherwise, no acute process. Electronically Signed: Apolinar DO Elan at 5:42 EDT Tel , Service support [phone], CC: Minerva Vergara MD; Gurdeep Huang MD Supervisor Fur Dressing: Signed 24-Jan-2015 Pulmonary Function Report Comp Result: Comments: See Note; NOTES: [facility] Pulmonary Services/Neurology [address] [place] [address] Pulmonary Function Test (Comp) MR#: [id number] Acct: [id number] Name: TANISHA REDIRIS Caitlin Rep #: [id number] : 1940 75 From: Jeremie Schultz MD [...] MD C C: Gurdeep Huang MD T: [facility] JOB: [id number] SPIROMETRY Ref ULN/LLN Pre Pre Post Post [...] MD Date Dictated: 01/19/151645 Date Transcribed: 01/19/151645 Supervisor Fur Dressing: Signed 19-Jan-2015 Inital Evaluation - PT Result: Comments: See Note; NOTES: [facility] [facility] [place] [address] Fax REHABILITATION SERVICES INITIAL EVALUATION MR#: [id number] Acct: [id number] Name: IRIS ARRIAGA Rep #: [id number] : 1940 75 From: Kelvin Newman Referring [...] patient on: Condition, Plan of Care Comments: roes blas, recommend use cane For the Purpose [...] to be FAXED BACK to us at [phone] for Medicare purposes. Please let me know if there are questions or concerns regarding this plan of care. & amp;#60;Electronically signed by Kelvin Newman > 01/19/15 0932 CC: EL Signed For Medicare only, by signing this I certify the plan of care. Physicians Signature Date 10-Jan-2015 ELECTROCARDIOGRAM, COMPLETE (ECG) ([id number]) Result: [MEASUREMENTS ANALYSIS] Date of Test: 08/09/2015 10:29:14; Heart Rate: 78; MN Interval: 230; QRS: 114; QT Interval: 438; Corrected QT Interval (QTc): 469; P [place]: 69; QRS [place]: -7; T [place] : 22; Blood Pressure: 140/90 [ECG DIAGNOSTIC STATEMENTS] Date of Test: 08/09/2015 10:29:14; Summary: Sinus Rhythm -First degree A-V block -Frequent pvcs - ventricular bigeminy [place] = 230- Nonspecific T-abnormality. ABNORMAL [MEASUREMENTS ANALYSIS] Date of Test: 08/09/2015 10:29:10; Heart Rate: 78; MN Interval: 230; QRS: 114; QT Interval: 438; Corrected QT Interval (QTc): 469; P [place]: 69; QRS [address] [place]: -7; T [place]: 22; Blood Pressure: 140/90 [ECG DIAGNOSTIC STATEMENTS] Date of Test: 08/09/2015 10:29:10; Summary: Sinus Rhythm -First degree A-V block -Frequent pvcs -ventricular bigeminy [place] = 230- Nonspecific T- abnormality. ABNORMAL 05-Jan-2015 PT Discharge Summary Result: Comments: See Note; NOTES: [facility] [facility]. [address] [place] [address] Fax REHABILITATION SERVICES DISCHARGE SUMMARY MR#: [id number] Acct: [id number] Name: IRIS ARRIAGA Rep #: [id number] : 1940 74 From: Kelvin Newman Referring [...] program. Kelvin Newman, PT T: NTS JOB: [id number] <Electronically signed by Kelvin Newman > 01/05/15 0931 CC: Signed 24-Nov-2014 Inital Evaluation - PT Result: Comments: See Note; NOTES: [facility]. [address] [place] [address] Fax REHABILITATION SERVICES INITIAL EVALUATION MR#: [id number] Acct: [id number] Name: IRIS ARRIAGA Rep #: [id number] : 1940 74 From: Kelvin Newman Referring [...] is sleepin g well. She is a [employer] member here at [employer], but has not worked out here much [...] heat. Kelvin Newman, PT T: LORI JOB: [id number] <Electronically signed by Kelvin Newman > 11/24/14 0940 CC: Signed For [facility] only, by signing this I certify the plan of care. Physicians Signature Date 04-Nov-2014 Abdomen Single View Result: Comments: See Note; NOTES: [facility] Imaging Services [address] [place] [address] Radiology Report MR#: [id number] Acct: [id number] Name: IRIS ARRIAGA Rep #: [id number] : 1940 F 74 From: Ed Fink MD PCP: Minerva Vergara MD Status: REG CLI Study: Abdomen Single View Date of Exam: 11/04/14 Exam# [id number] Ordering Dr: Minerva Vergara MD STUDY : [...] Ed Fink MD at 14:10 EDT Tel [phone], Service support [phone], Fax RAD/Abdomen Single View IMPRESSION: Moderate amount of fecal material is seen throughout the colon. Electronically Signed: Ed Fink MD at 14: 10 EDT Tel [phone], Service support [phone], CC: Minerva Vergara MD Supervisor Fur Dressing: Signed 04-Nov-2014 Shoulder min 2 Views Result: Comments: See Note; NOTES: [facility] Imaging Services [address] [place] [address] Radiology Report MR#: [id number] Acct: [id number] Name: IRIS ARRIAGA Rep #: [id number] : 1940 F 74 From: Ed Fink MD PCP: Minerva Vergara MD Status: REG CLI Study: Shoulder min 2 Views Date of Exam: 11/04/14 Exam# [id number] Ordering Dr: Minerva Vergara MD STUD Y: [...] Ed Fink MD at 14:11 EDT Tel [phone], Service support [phone], CC: Minerva Vergara MD Supervisor Fur Dressing: Signed 21-Oct-2014 Echocardiogram Complete Result: Comments: See Note; NOTES: [facility] Cardiovascular Services [address] [place] [address] Echo Complete 10/19/14 1314 MR#: [id number] Acct: [id number] Name: CATHLEEN ARRIAGA Rep #: [id number] : 1940 74 From: Gurdeep Huang MD [...] Date Dictated: 10/19/14 1314 Date Transcribed: 10/19/141740 Supervisor Fur Dressing: Signed 23-Sep-2014 12 Lead Electrocardiogram Result: Comments: See Note; NOTES: [facility] Cardiovascular Services [address] [place] [address] 12 Lead EKG 09/22/14 1440 MR#: [id number] Acct: [id number] Name: JARON ARRIAGA Rep #: [id number] : 1940 74 From: Peewee Cotto MD [...] Abnormal ECG Confirmed by PEEWEE COTTO ([id number]), communications editor CAROLEE MARIEE ([id number]) on 09/23/2014 2: 44:4 7 PM Referred By: TRAV Confirmed By:PEEWEE COTTO 09/23/14 1444 Date Peewee Cotto MD CC: Minerva Vergara MD Date Dictated: 09/22/14 1440 Date Transcribed: 09/22/14 144 Supervisor Fur Dressing: Signed 22-Sep-2014 Discharge Instruction Result: Comments: See Note; NOTES: [facility] Medical Records Department [address] [place] [address] Discharge Instruction 09/22/14 1616 MR#: [id number] Acct: [id number] Name: IRIS ARRIAGA Rep #: [id number] : 1940 74 From: Kermit Verduzco MD PCP: Minerva Vergara MD Status: [facility] ER ED Disposition - Plan for [...] Department Summary Result: Comments: See Note; NOTES: [facility] Medical Records Department [address] [place] [address] Emergency Department Summary MR#: [id number] Acct: [id number] Name: IRIS ARRIAGA Rep #: [id number] : 1940 74 From: Kermit Verduzco MD PCP: Minerva Vergara MD Status: [facility] ER DATE OF SERVICE: 09/22/2014 CHIEF [...] stood up 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 She [...] Discharge. Kermit Verduzco MD T: NTS JOB: [id number] 09/22/14 3335 <Electronically signed by Kermit Verduzco MD> Date Kermit Verduzco MD CC: Minerva Vergara MD Date Dictated: 09/22/141614 Date Transcribed: 09/22/141614 Supervisor Fur Dressing: Signed 22-Sep-2014 Chest PA and Lateral Result: Comments: See Note; NOTES: [facility] Imaging Services [address] [facility] [place] [address] Radiology Report MR#: [id number] Acct: [id number] Name: IRIS ARRIAGA Rep #: [id number] : 1940 F 74 From: Ed Fink MD PCP: Minerva Vergara MD Status: REG ER Study: Chest PA and Lateral Date of Exam: 09/22/14 Exam# [id number] Ordering Dr: Kermit Verduzco MD ROWAN DY: [...] CC: Minerva Vergara MD; Kermit Verduzco MD Supervisor Fur Dressing: Signed Family History Unknown Family Member Name [...] Status: 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: Active Exercise History Comments: Exercises occasionally [...] kg/m2 Body Surface Area Calculated 1.97 m2 88-Dhg-295721:15 Comments: sitting- spo2 on 2L- 89% P66 [...] Panel, Basic Comments: PATIENT NOT FASTINGPERFORMED BY: [facility] Hospital[facility]jofix2510 [facility] [id number] ([id number]) Calcium 9.4 mg/dL (Normal) Range: 8.7-10.3 Carbon [...] 8-27 Glucose 72 mg/dL (Normal) Range: 65-99 45-Voe-83525:13 Pathology Report Comments: PERFORMED BY: CYCIN [facility] Dora Rool4255 [facility] [id number] BY: KWCYT [facility] [place] Cyto Ionbo37646 [facility] [id number] Clinical Information: [id number] See MATER Comments: Material submitted: .ABDOMINAL BIOPSYClinical [...] ENTIRELY SUBMITTEDIN ONE CASSETTE.BCO/SMIPathologist provided ICD-10:D21.4, L82.1CPT .543142 47-Mhk-209006:35 Comprehensive Metabolic Profil Comments: [facility] [address] [place], [place], [address] GAP 8 (Normal) Range: 5-15 CO2 33.0 mmol/L (Abnormal) Range: 21.0-32.0 CL 95 mmol/L (Abnormal) Range: 98-107 K 3.6 mmol/L (Normal) Range: 3.5-5.1 NA 136 mmol/L (Normal) Range: 136-145 T BILI 0.70 mg/dL (Normal) Range: 0.20-1.00 ALT 23 U/L (Normal) Range: 13-56 Comments: Please note revised ALT reference range qwqvkkodx41/28/2018. ALK P 79 U/L (Normal) Range: 45-117 [...] Comments: Please note revised GLUCOSE reference range tasjyixin44/02/2018. 56-Dkl-301950:35 Phosphorus Comments: [facility] [address] [place], [place], [address] PHOS 4.0 mg/dL (Normal) Range: 2.5-4.9 50-Pry-536223:35 Uric Acid Comments: [facility] [address] [place], [place], [address] URIC 10.9 mg/dL (Abnormal) Range: 2.6-6.0 Comments: The drugs N-Acetylcysteine and Metamizole may falselydepress this assay. 18-Svx-032843:19 Metabolic Panel, Comments: fax a copy to Dr. Tucker [phone] Huang [phone]; A courtesy copy of this report has been sent [phone], .PATIENT NOT FASTINGPERFORMED BY: [facility] Dub pe7930 Jyotsna Clements ([address]) x [place] [id number] Information: HARD DRAW/BUTTERFLY ALT (SGPT) 19 [iU]/L [...] Glucose, Serum 97 mg/dL (Normal) Range: 65-99 14-Njh-209633:56 Basic Metabolic Profile (BMP) Comments: Order Date: 08/07/17Order Info: 0667-1 - BMPComments: now stat and prnWAccess Hospital Dayton [address] [place], [place], [address] GAP 8 (Normal) Range: 5-15 CO2 29.0 [...] 7-18 GLU 80 mg/dL (Normal) Range: 70-110 56-Gbv-921775:23 CREATININE FINGERSTICK Comments: [facility] [address] [place], [place] [address] CREATININE WB 1.3 mg/dL (Abnormal) Range: 0.55-1.02 11-Sep-20171:20 CBC WITH MANUAL DIFF Comments: PATIENT NOT FASTINGPERFORMED BY: [facility] Bzvhxg9700 [facility] [id number] Information: NURSE DRAW (43967) Immature Grans (Abs) 0.0 {x10E3/uL} (Normal) Range: [...] Panel, Comprehensive Comments: PATIENT NOT FASTINGPERFORMED BY: [facility] HospitalPydzth6506 [facility] [id number] (11830) ALT (SGPT) 11 [iU]/L (Normal) Range: 0-32 [...] 101 mg/dL (Abnormal) Range: 65-99 11-Sep-20171:20 URINALYSIS (89347) Comments: PATIENT NOT FASTINGPERFORMED BY: [facility] HospitalSvbpja3149 [facility] [id number] Microscopic Examination MICNIP (Normal) Comments: Microscopic not indicated and not performed. Nitrite, Urine Negative (Normal) Urobilinogen,Semi-Qn 1.0 mg/dL (Normal) Range: 0.2-1.0 Bilirubin Negative (Normal) Occult Blood Negative (Normal) Ketones Negative (Normal) Glucose Negative (Normal) Protein Trace (Normal) WBC Esterase Negative (Normal) Appearance Clear (Normal) Urine-Color Yellow (Normal) pH 7.0 (Normal) Range: 5.0-7.5 Specific [place] 1.018 (Normal) Range: 1.005-1.030 0-Gxc-213343:34 Basic Metabolic Profile (BMP) Comments: [facility] [address] [place], [place], [address] GAP 10 (Normal) Range: 5-15 CO2 26.0 [...] 7-18 GLU 92 mg/dL (Normal) Range: 70-110 50-Qcz-405430:03 Basic Metabolic Profile (BMP) Comments: Order Date: 05/01/17Order Info: 0667-1 - *BMPComments: Reason:[facility] [address] [place], [address] GAP 5 (Normal) Range: 5-15 CO2 28.0 [...] 7-18 GLU 64 mg/dL (Abnormal) Range: 70-110 70-Ovj-827714:16 Renal function Panel (75068) Comments: PATIENT NOT FASTINGPERFORMED BY: [facility] HospitalXeqsqn1503 [facility] [id number] Albumin, Serum 4.3 g/dL (Normal) Range: 3.5-4.8 [...] Glucose, Serum 91 mg/dL (Normal) Range: 65-99 25-Lmn-36665:15 Urinalysis, Complete Comments: Order Date: 03/31/17How was Urine Obtained? SHAKE CUTTER TO [facility] [address] [place], [address] MUCUS, URINE 0 SEEN {/hpf} [...] CLARITY Sl. Cloudy (Normal) COLOR Yellow (Normal) 67-Aws-53223:45 Lactic Acid Comments: Yes/No query for Sepsis Lactate Rule [facility] [address] [place], [address] LACTIC ACID 0.8 mmol/L (Normal) Range: 0.4-2.0 :39 BNP,B-Type NATRIURETIC PEPTIDE Comments: [facility] [address]rm[address]vao7410 [facility] [place], [address] B-TYPE HUMBLE PEP 1017.0 pg/mL (Abnormal) Range: 0-100 40-Bxh-27864:39 CBC W/Diff, Automated Comments: [facility] [address] [place], [address] ANISO 1+ (Normal) Absolute Lymph [...] 4.2-5.4 WBC 13.6 K/mm3 (Abnormal) Range: 4.4-11.0 68-Dow-16473:39 Comprehensive Metabolic Profil Comments: 'TROP' Serial specimen #1, #2, #3, or #4: 1W[facility] [address] [place], [address] GAP 8 (Normal) Range: 5-15 [...] Serial specimen #1, #2, #3, or #4: 1[facility] [address] [place], [place], [address] TROPONIN-I 0.06 ng/mL (Normal) Comments: TROPONIN-I EXPECTED VALUES <0.05 NEGATIVE 0.06 - 0.59 AT RISK OF AL > OR = 0.60 SUGGEST AL :03 Bedside Glucose Comments: [facility] Ykeg[address] [place] [address] BEDSIDE GLU 146 mg/dL (Abnormal) Range: 70-110 Comments: MANAGEMENT OF PATIENT CARE PER NURSING PROTOCOL 92-Ilh-142750:25 Vitamin D,25 Hydroxy Comments: Order Date: 01/17/17Order Info: 0788-1 - *Hepatic Function Panel3 ORDERING DOCTORS:REINA REID ORDERED: LIVER LIPIDDR.CAITLIN ORDERD: BMPMARY CIESA ORDERED: TSH, VITD, K1VSdnllah [facility] pital [address] [place], [address] Vitamin D 25-OH 35.2 ng/mL (Normal) Comments: Vitamin D 25(OH) Status Range Deficiency <20 ng/mL (50nmol/L) Insuffciency 20 - 30 ng/mL (50 - 75 nmol/L) Sufficiency 30 - 100 ng/mL (75 - 250 nmol/L) Toxicity >100 ng/mL (>250 nmol/L) 13-Ejg-790438:20 Basic Metabolic Profile (BMP) Comments: Order Date: 01/17/17Order Info: 0788-1 - *Hepatic Function Panel3 ORDERING DOCTORS:REINA REID ORDERED: LIVER LIPIDDR.CAITLIN ORDERD: BMPMARY CIESA ORDERED: TSH, VITD, D4IJuwks Date: 01/17/17Order Info: 49027-1 - *Lipid Profile CC PCPComments: 12 hours fasting, may have water.[facility] [address] [place], [address] GAP 6 (Normal) Range: 5-15 CO2 31.0 [...] 7-18 GLU 109 mg/dL (Normal) Range: 70-110 92-Mnd-129645:20 Lipid Profile Comments: Order Date: 01/17/17Order Info: 0788- 1 - *Hepatic Function Panel3 ORDERING DOCTORS:REINA REID ORDERED: LIVER LIPIDDR.NOVY ORDERD: BMPMARY CIESA ORDERED: TSH, VITD, Z4GCnepr Date: 01/17/17 Order Info: 61911-9 - *Lipid Profile CC PCPComments: 12 hours fasting, may have water.[facility] [address] [place], [place], [address] VLDL 20 mg/dL (Normal) Range: 5-40 LDL [...] 200-240 mg/dL Borderline >240 mg/dL High Risk 61-Tlk-353596:20 Liver Profile Comments: Order Date: 01/17/17Order Info: 0788- 1 - *Hepatic Function Panel3 ORDERING DOCTORS:REINA REID ORDERED: LIVER LIPIDDR.NOVY ORDERD: BMPMARY CIESA ORDERED: TSH, VITD, Q5EKbzwx Date: 01/17/17 Order Info: 18486-4 - *Lipid Profile CC PCPComments: 12 hours fasting, may have water.[facility] [address] [place], [place], [address] D BILI 0.24 mg/dL (Normal) Range: 0.00-0.30 T BILI 0.60 mg/dL (Normal) Range: 0.20-1.00 ALT 27 U/L (Normal) Range: 12-78 ALK P 84 U/L (Normal) Range: 45-117 AST 27 U/L (Normal) Range: 15-37 GLOB 3.7 g/dL (Abnormal) Range: 2.3-3.5 ALB 3.8 g/dL (Normal) Range: 3.4-5.0 T PROT 7.5 g/dL (Normal) Range: 6.4-8.2 35-Qtj-922590:20 T4 Free Direct Comments: Order Date: 01/17/17Order Info: 0788- 1 - *Hepatic Function Panel3 ORDERING DOCTORS:REINA REID ORDERED: LIVER LIPIDDR.NOVY ORDERD: BMPYUDYY CIGLENYSA ORDERED: TSH, VITD, N2HUnvmx Date: 01/17/17 Order Info: 04859-5 - *Lipid Profile CC PCPComments: 12 hours fasting, may have water.[facility] [address] [place], [place], [address] T4 FREE DIRECT 1.51 ng/dL (Abnormal) Range: 0.76-1.46 69-Rsw-413499:20 Thyroid Stim Hormone (TSH) Comments: Order Date: 01/17/17Order Info: 0788-1 - *Hepatic Function Panel3 ORDERING DOCTORS:REINA REID ORDERED: LIVER LIPIDDR.NOVY ORDERD: BMPMARY CIESA ORDERED: TSH, VITD, O2JVqrsm Date: 01/17/17Order Info: 80413-8 - *Lipid Profile CC PCPComments: 12 hours fasting, may have water.[facility] [address] [place], [address] TSH 3.02 {uIU/mL} (Normal) Range: 0.358-3.74 23-Vtf-492202:00 Pathology Report Comments: PERFORMED BY: [facility] Raafo05695 [facility] [id number] BY: [facility] Dermatopathology Lmdmeny265 [facility] [address]AK[facility] [id number] Information: [id number] See MATER Comments: Material submitted: .SHAVE BIOPSY OF RIGHT ABDOMENClinician provided ICD-10:L82.1Clinical history: . Note (Normal) Diagnosis:BENIGN VERRUCAL KERATOSIS.02/08/2017Electronically signed: .Gege Reece MD, DermatopathologistGross description: .SUBMITTED IN FORMALIN LABELED IRIS ARRIAGA AND IS DESIGNATEDRIGHT ABDOMEN IS A FRAGMENT OF FERGUSON TISSUE THAT MEASURES 1.4 X .8X .3 CM. THE MARGINS ARE INKED BLUE. THE SPECIMEN IS TRISECTEDAND SUBMITTED IN TOTO.XJW/BXSPathologist provided ICD-10:D23.5CPT .245302 75-Ldb-006804:12 Basic Metabolic Profile (BMP) Comments: Order Date: 01/15/17Order Info: 0667-1 - *BMPComments: Reason:[facility] [address] [place], [address] GAP 5 (Normal) Range: 5-15 CO2 32.0 [...] 7-18 GLU 82 mg/dL (Normal) Range: 70-110 1-Qsp-100594:04 Basic Metabolic Profile (BMP) Comments: Order Date: 01/08/17Order Info: 0667-1 - *BMPComments: Reason: BMP: 1 week[facility] [address]fttbq[address] [place], [address] GAP 11 (Normal) Range: 5-15 CO2 28.0 [...] <126 mg/dLsuggests IMPAIRED HOMEOSTASIS per A.D.A. criteria. 66-Yzd-387008:28 Lipid Profile Comments: Order Date: 06/18/16Order Info: 0788- 1 - *Hepatic Function PanelLIVER AND LIPID WERE ORDERED BY INE LEVEL ORDERED BY Date: 06/18/16Order Info: 18668-1 - *Lipid Profi le CC PCPComments: 12 hours fasting, may have water.[facility] [address] [place], [place], [address] VLDL 14 mg/dL (Normal) Range: 5-40 LDL [...] 200-240 mg/dL Borderline >240 mg/dL High Risk 65-Tsa-705456:28 Liver Profile Comments: Order Date: 06/18/16Order Info: 0788- 1 - *Hepatic Function PanelLIVER AND LIPID WERE ORDERED BY ATININE LEVEL ORDERED BY Date: 06/18/16Order Info: 20043-1 - *Lipid Profi le CC PCPComments: 12 hours fasting, may have water.[facility] [address] [place], [place], [address] D BILI 0.48 mg/dL (Abnormal) Range: 0.00-0.30 T BILI 1.10 mg/dL (Abnormal) Range: 0.20-1.00 ALT 62 U/L (Normal) Range: 12-78 ALK P 94 U/L (Normal) Range: 45-117 AST 59 U/L (Abnormal) Range: 15-37 GLOB 3.3 g/dL (Normal) Range: 2.3-3.5 ALB 3.7 g/dL (Normal) Range: 3.4-5.0 T PROT 7.0 g/dL (Normal) Range: 6.4-8.2 31-Nju-677493:28 Serum Creatinine AND GFR Comments: Order Date: 06/18/16Order Info: 0788-1 - *Hepatic Function PanelLIVER AND LIPID WERE ORDERED BY ATININE LEVEL ORDERED BY Date: 06/18/16Order Info: 35758-0 - *Lipid i ashley SOLOMON PCPComments: 12 hours fasting, may have water.[facility] [address] [place], [place], [address] EST GFR - AA 52 mL/min (Abnormal) Comments: GFR Calc EST GFR 43 mL/min (Abnormal) Comments: Non- GFR Calc CREAT,SERUM 1.29 mg/dL (Abnormal) Range: 0.55-1.02 Comments: The validity of the calculated GFR AND GFRAA in patients over70 years has not been determined. Clinical correlation isessential. 79-Gua-511851:36 Anticardiolipin IgA,G,M Comments: [facility] (refer to report [...] Positive: >20 - 80 High Positive: >80 13-Kxr-160340:36 Comprehensive Metabolic Profil Comments: [facility] [address] [place], [place], [address] GAP 4 (Abnormal) Range: 5-15 CO2 26.0 [...] 7-18 GLU 103 mg/dL (Normal) Range: 70-110 00-Qio-901834:36 Fact V Leiden Mutation Comments: [facility] (refer to report for specific site)refer to report for address and phone number COMMENT (Normal) Comments: Comment:Genetic counselors are available for health care providersto discuss results at [phone]).Methodology:DNA analysis of the Factor V gene was performed byallele-specific PCR. The d iagnostic sensitivity andspecificity is >99% for both. Molecular-based testing ishighly accurate, but as in any laboratory test, diagnosticerrors may occur. All test results must be combined withclin ical information for the most accurate interpretation.This test was developed and its performance characteristicsdetermined by [facility]. It has not been cleared or approvedby the Food and Drug Administra tion.References:Nicholas Armijo (1995). Clin Lab Med 16:169-186.Raul Cano, PhD, Cinthya May, PhD, Wilbur Clemente, PhD, Marly Wen MTammiSTammi, PhD, Lilia Way, PhD, Kaia Reynaga, PhD, Richard Juarez PhD, [facility] FACTOR V LEIDEN (Normal) Comments: Result: Negative [...] in the workup for venous thrombosis include [id number] mutation in the factor II (prothrombin) gene,protein S and C deficiency, and antithrombin deficiencies.Anticardiolipin antibody and lupus 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 an alysismay be appropriate for certain patients, as well ashomocysteine levels.Contact your local [facility] for information on how to orderadditional testing if desired. 56-Rye-935738:36 Factor II, DNA Analysis Comments: [facility] (refer to report for specific site)refer to report for address and phone number COMMENT (Normal) Comments: Additional Information:Genetic Counselors are available for health care providersto discuss results at [phone]).Methodology:DNA analysis of the Factor II gene was [...] Drug Administration.Poort SR, et al. Blood. 1996; 88:5743-4432.Robert GUTIÉRREZ. Circulation. 2004; 110:e15-e18.Stanislav I, et al. Arterioscler Thromb Vasc Biol. 1999;19:700-703.Raul Cano, Ph D, Cinthya May, PhD, Wilbur Clemente, PhD, Marly Wen M.S., PhD, Lilia Way, PhD, Kaia Reynaga, PhD, Richard Juarez, PhD, [facility] COMMENT (Normal) Comments: Comment:A point mutation ([id number]) in the factor II (prothrombin)gene is the [...] individual mutations. This assay detects onlythe prothrombin H27103S mutation and does not measuregenetic abnormalities elsewhere in the genome. Otherthrombotic r isk factors may be pursued through systematicclinical laboratory analysis. These factors include vwbU866R (Leiden) mutation in the Factor V gene, plasmahomocysteine levels, as well as testing for defici encies ofantithrombin III, protein C and protein S. FACTOR II,DNA (Normal) Comments: Factor II, DNA Analysis NEGATIVE No mutation identified. 42-Poy-182445:36 Partial Thromboplast Time Comments: [facility] [address] [place], [place], [address] PTT 28.3 s (Normal) Range: 24.1-36.2 60-Tyn-144985:36 Prothrombin Time w/INR Comments: [facility] [address] [place], [place], [address] INR 1.3 (Normal) PROTIME 15.5 s (Abnormal) Range: 11.7-14.9 :39 CBC W/Diff, Automated Comments: Order Date: 12/02/16Order Info: 0184-1 - CBCDComments: coipy to Dr. jessie armendariz statOrder Date: 12/02/16Order Info: 0184-1 - CBCDComments: coipy to Dr. jessie armendariz statOrder Date: 12/02/16O rder Info: 0788-1 - LIVERComments: to stat copy to Dr. natalie armendarizKind[facility] Healthcare [address] [place], [address] Absolute Lymph 1.13 {X10_3/ul} (Normal) Range: 0.83-4.51 [...] 4.2-5.4 WBC 8.8 K/mm3 (Normal) Range: 4.4-11.0 64-Qec-46553:39 Liver Profile Comments: Order Date: 12/02/16Order Info: 0788-1 - LIVEROrder Date: 12/02/16Order Info: 0788-1 - LIVERComments: to stat copy to Dr. estrada [facility] [address] [place], [place], [address] D BILI 0.28 mg/dL (Normal) Range: 0.00-0.30 T BILI 0.80 mg/dL (Normal) Range: 0.20-1.00 ALT 33 U/L (Normal) Range: 12-78 ALK P 71 U/L (Normal) Range: 45-117 AST 30 U/L (Normal) Range: 15-37 GLOB 2.9 g/dL (Normal) Range: 2.3-3.5 ALB 3.8 g/dL (Normal) Range: 3.4-5.0 T PROT 6.7 g/dL (Normal) Range: 6.4-8.2 78-Ejr-537194:38 URINE DAR CULTURE (NOREEN Comments: PATIENT NOT FASTINGPERFORMED BY: [facility] Lndjyu2832 [facility] [id number] Information: SRC:UC COL COUNT) (15361) Antimicrobial MIHEAD (Normal) Comments: S = Susceptible; [...] Colonies/mL (Abnormal) Urine Final report Culture,Comprehensive (Abnormal) 78-Dgq-76120:33 CBC W/Diff, Automated Comments: Order Date: 10/31/16Order Info: 0184-1 - CBCDOrder Info: 30520-2 - SEDOrder Date: 10/31/16Order Info: 0184-1 - CBCDOrder Info: 75053-9 - SEDOrder Date: 10/31/16Order Info: 3040-3 - LIPASEW [facility] [address] [place], [address] Absolute Lymph 1.10 {X10_3/ul} (Normal) Range: 0.83-4.51 [...] 4.2-5.4 WBC 11.1 K/mm3 (Abnormal) Range: 4.4-11.0 51-Mrh-43840:33 Comprehensive Metabolic Profil Comments: Order Date: 10/31/16Order Info: 0786-1 - CMPOrder Info: 1798-8 - AMYOrder Info: 3040-3 - LIPASEOrder Date: 10/31/16Order Info: 3040-3 - LIPASEComments: all [facility] [address] [place], [address] GAP 10 (Normal) Range: 5-15 CO2 26.0 [...] 7-18 GLU 86 mg/dL (Normal) Range: 70-110 23-Kbc-90860:33 Erythrocyte Sed Rate Comments: Order Date: 10/31/16Order Info: 0184-1 - CBCDOrder Info: 13205-4 - SEDOrder Date: 10/31/16Order Info: 0184-1 - CBCDOrder Info: 99665-7 - SEDOrder Date: 10/31/16Order Info: 3040-3 - LIPASEW [facility] [address] [place], [address] SED RATE 12 mm/h (Normal) Range: 0-30 :33 Lipase (66076) Comments: Order Date: 10/31/16Order Info: 0786- 1 - CMPOrder Info: 1798-8 - AMYOrder Info: 3040-3 - LIPASEOrder Date: 10/31/16Order Info: 3040-3 - LIPASEComments: all [facility] [address]fe[address] [place], [address] LIPASE 216 U/L (Normal) Range: 73-393 :33 Amylase (22364) Comments: Order Date: 10/31/16Order Info: 0786- 1 - CMPOrder Info: 1798-8 - AMYOrder Info: 3040-3 - LIPASEOrder Date: 10/31/16Order Info: 3040-3 - LIPASEComments: all [facility] [address] [place], [address] QUENTIN 56 U/L (Normal) Range: 25-115 42-Bgs-83524:45 Urinalysis, Office (48939) UA - LEUKOCYTE ESTERASE Negative (Normal) UA - NITRITE Negative (Normal) URINE UROBILINGN NOREEN TIMED Normal mg/dL (Normal) UA - PROTEIN Negative mg/dL (Normal) UA - PH 6 (Abnormal) UA - BLOOD Non Hemolyzed Trace (Normal) UA - SPECIFIC GRAVITY 1.015 (Normal) UA - KETONES Negative mg/dL (Normal) UA - BILIRUBIN Negative (Normal) UA - GLUCOSE Negative (Normal) 24-Tbc-613010:00 Pathology Report Comments: PERFORMED BY: [facility] Cyto Pggxj65476 [facility] [id number] Information: [id number] See MATER Comments: Material submitted: .SHAVE BIOPSY [...] ARE 4 PIECES TOTAL./CORCOR/CORPathologist provided ICD-10:L82.1, B07.8CPT .875350 4-Esw-539306:50 Basic Metabolic Profile (BMP) Comments: DR TUCKER IS ORDERING THE BMPOrder Date: 06/28/16OV Order #: [id number] Hospital [facility] [address]tym[address] [place], [address] GAP 9 (Normal) Range: 5-15 CO2 28.0 [...] 7-18 GLU 89 mg/dL (Normal) Range: 70-110 8-Ouq-714306:50 Lipid Profile Comments: DR TUCKER IS ORDERING THE BMPOrder Date: 06/28/16OV Order #: [id number] Healthcare [address] [place], [place], [address] VLDL 14 mg/dL (Normal) Range: 5-40 LDL [...] 200-240 mg/dL Borderline >240 mg/dL High Risk 3-Fil-101848:50 Liver Profile Comments: DR TUCKER IS ORDERING THE BMPOrder Date: 06/28/16OV Order #: [id number] Healthcare [address] [place], [address] D BILI 0.11 mg/dL (Normal) Range: 0.00-0.30 [...] ORDERING THE BMPOrder Date: 06/28/16 Order #: [id number] Healthcare [address] [place], [place], [address] T4 THYROXIN 12.8 ug/dL (Normal) Range: 4.8-13.9 7-Ahf-128703:50 Thyroid Stim Hormone (TSH) Comments: DR TUCKER IS ORDERING THE BMPOrder Date: 06/28/16 Order #: [id number] Healthcare [address]gr[address] [place], [place], [address] TSH 2.26 {uIU/mL} (Normal) Range: 0.358-3.74 16-Luv-970542:26 URINE DAR CULTURE-IDENTIFICATN Comments: PATIENT NOT FASTINGPERFORMED BY: [facility]CoM[facility]view Psychiatric HospitalJuermi2855 [facility] [id number] Information: SRC:ANDREW (72466) Result 1 ECV (Abnormal) Comments: Escherichia coli, [...] report Culture,Comprehensi (Abnormal) ve :38 Urinalysis, Office (03070) UA - LEUKOCYTE ESTERASE Negative (Normal) UA - NITRITE Negative (Normal) URINE UROBILINGN NOREEN TIMED Normal mg/dL (Normal) UA - PROTEIN Negative mg/dL (Normal) UA - PH 5 (Abnormal) UA - BLOOD Hemolyzed Trace (Normal) UA - SPECIFIC GRAVITY 1.010 (Normal) UA - KETONES Negative mg/dL (Normal) UA - BILIRUBIN Negative (Normal) UA - GLUCOSE Negative (Normal) 19-Ynl-887629:02 Comprehensive Metabolic Profil Comments: CMP IS [facility]. [facility]ARNEYAccess [facility] [address] [place], [address] GAP 8 (Normal) Range: 5-15 [...] 7-18 GLU 85 mg/dL (Normal) Range: 70-110 52-Jip-243268:02 T4 Total, Thyroxin Comments: [facility] [address]byklkef[address] [place], [address] T4 THYROXIN 13.1 ug/dL (Normal) Range: 4.8-13.9 98-Fux-712910:02 Thyroid Stim Hormone (TSH) Comments: CMP IS FOR [facility]. [facility]ARNEYAccess [facility] [address] [place], [address] TSH 1.34 {uIU/mL} (Normal) Range: 0.358-3.74 :25 COLON BIOPSY (CHOOSE See Note (Normal) Comments: [facility] [address]fibep[address] [place], [address] SITE) Comments: Patient: IRIS ARRIAGA : 1940 (76/F) Acct Num: [id number] Phys: Clifford Gifford Unit Num: [id number] Loc: EN Specimen: [id number] Received: 01/30/16 - 50 Spec Type: COLON BX TISSUES TISSUES: GROSS DESCRIPTION Received is one container labeled with the patient name and designated mid ascending polyp. The specimen consists of two irregular fragments of light tansoft tissue that in aggregate measure 0.3 x 0.2 x 0.1 cm. The specimen is totally submitted in one cassette. / SJ:juan j 01/30/16 TC:5 CPT:71540 HEADER OPERATION: Colonoscopy PRE-OP DI AGNOSIS: Screening TISSUE SUBMITTED: Mid ascending polyp MICROSCOPIC DESCRIPTION Slides are reviewed. MICROSCOPIC DIAGNOSIS Mid ascending colon polyp, biopsy: Fragments of tubular adenoma. AM:juan j 01/31/16 Signed Abrahan [facility] 01/31/16 <signature on file> 29-Ned-180419:12 Basic Metabolic Profile (BMP) Comments: ORDERED BMPDR.REINA ORDERED TSH T4 LIPID [facility] [address] [place], [address] GAP 6 (Normal) Range: 5-15 CO2 27.0 [...] 7-18 GLU 78 mg/dL (Normal) Range: 70-110 78-Yja-430952:12 Lipid Profile Comments: ORDERED BMPDR.MOODISPAW ORDERED TSH T4 LIPID [facility] [address] [place], [address] VLDL 15 mg/dL (Normal) Range: [...] 200-240 mg/dL Borderline >240 mg/dL High Risk 43-Psn-187665:12 Liver Profile Comments: ORDERED BMPDR.MOODISPAW ORDERED TSH T4 LIPID [facility] [address]epz1862 [place], [address] D BILI 0.17 mg/dL (Normal) Range: 0.00-0.30 T BILI 0.50 mg/dL (Normal) Range: 0.20-1.00 ALT 37 U/L (Normal) Range: 12-78 ALK P 68 U/L (Normal) Range: 50-136 AST 26 U/L (Normal) Range: 15-37 GLOB 3.8 g/dL (Abnormal) Range: 2.3-3.5 ALB 3.5 g/dL (Normal) Range: 3.4-5.0 T PROT 7.3 g/dL (Normal) Range: 6.4-8.2 04-Zpi-056966:12 T4 Total, Thyroxin Comments: ORDERED BMPDR.DELIOJOCELINE ORDERED TSH T4 [facility] [address]cl[address] [place], [place], [address] T4 THYROXIN 14.3 ug/dL (Abnormal) Range: 4.8-13.9 04-Fzd-972316:12 Thyroid Stim Hormone (TSH) Comments: ORDERED BMPDR.DELIOISPAW ORDERED TSH T4 [facility] [address]waan[address], [place], [address] TSH 2.32 {uIU/mL} (Normal) Range: 0.358-3.74 95-Aol-24898:37 Rapid Flu (30627 x 2) Influenza A Ag neg (Normal) 12-Lmt-553486:28 Metabolic Panel, Basic Comments: PATIENT NOT FASTINGPERFORMED BY: [facility] Vrfnsf2854 [facility] [id number] (29752) Calcium, Serum 8.7 mg/dL (Normal) Range: 8.7-10.3 [...] Glucose, Serum 70 mg/dL (Normal) Range: 65-99 54-Vxm-522112:28 CBC (Auto) (54916) Comments: PATIENT NOT FASTINGPERFORMED BY: LabCoMeadowview Psychiatric HospitalKirhtq4689 [facility] [id number] Information: [id number] Platelets 224 {x10E3/uL} (Normal) Range: 150-379 RDW 14.8 % (Normal) Range: 12.3-15.4 MCHC 33.0 g/dL (Normal) Range: 31.5-35.7 MCH 31.9 pg (Normal) Range: 26.6-33.0 MCV 97 fL (Normal) Range: 79-97 Hematocrit 39.4 % (Normal) Range: 34.0-46.6 Hemoglobin 13.0 g/dL (Normal) Range: 11.1-15.9 RBC 4.08 {x10E6/uL} (Normal) Range: 3.77-5.28 WBC 8.1 {x10E3/uL} (Normal) Range: 3.4-10.8 37-Ixq-046941:51 URINE DAR CULTURE-IDENTIFICATN Comments: PATIENT NOT FASTINGPERFORMED BY: [facility]CoM[facility]owview Psychiatric HospitalNsilnt8275 [facility] [id number] Information: [id number] (03496) Result 1 MUG (Normal) Comments: Mixed urogenital flora2,000 Colonies/mL Urine Culture,Comprehensive Final report (Normal) 42-Aph-80274:28 Magnesium Comments: [facility] [address] [place], [address] MG 2.1 mg/dL (Normal) Range: 1.8-2.4 62-Vsm-45555:28 Potassium Comments: [facility] [address] [place], [address] K 5.0 mmol/L (Normal) Range: 3.5-5.1 92-Sao-816821:12 LIPASE (13085) Comments: Test(s) Potassium, Serum called to Gina Vergara on 11/21/2015 at 03:54 ESTPATIENT NOT FASTINGPERFORMED BY: [facility]6370 [facility] [id number] Lipase, Serum 61 U/L (Abnormal) Range: 0-59 21-Pck-763648:12 AMYLASE (13709) Comments: Test(s) Potassium, Serum [facility] on 11/21/2015 at 03:54 ESTPATIENT NOT FASTINGPERFORMED BY: LocawebMeadowview Psychiatric HospitalIlvzij9663 [facility] [id number] Amylase, Serum 84 U/L (Normal) Range: 31-124 75-Ivz-270992:20 Urinalysis, Office (49032) UA - LEUKOCYTE ESTERASE Trace (Normal) UA - NITRITE Negative (Normal) URINE UROBILINGN NROEEN TIMED Normal mg/dL (Normal) UA - PROTEIN 100 mg/dL (Normal) UA - PH 6.0 (Normal) Comments: 5.5 UA - BLOOD Negative (Normal) UA - SPECIFIC GRAVITY 1.030 (Abnormal) UA - KETONES 15 mg/dL (Abnormal) UA - BILIRUBIN Moderate (Normal) UA - GLUCOSE Negative (Normal) 99-Piy-087063:12 Metabolic Panel, Basic Comments: Test(s) Potassium, Serum [facility] on 11/21/2015 at 03:54 ESTPATIENT NOT FASTINGPERFORMED BY: [facility]ocawebMeadowview Psychiatric HospitalGvrfiv6807 [facility] [id number] ([id number]) Calcium, Serum 8.9 mg/dL (Normal) Range: 8.7-10.3 [...] Comments: Specimen received hemolyzed. Clinical correlation indicated. 64-Bks-532146:12 CBC WITH MANUAL DIFF Comments: Test(s) Potassium, Serum called to [employer] on 11/21/2015 at 03:54 ESTPATIENT NOT FASTINGPERFORMED BY: MISHA [facility] Zvuyqc7906 [facility] [id number] Information: [id number] (18881) Immature Grans (Abs) 0.0 {x10E3/uL} (Normal) Range: [...] 3.77-5.28 WBC 16.1 {x10E3/uL} (Abnormal) Range: 3.4-10.8 9-Gey-770500:50 Urinalysis, Complete Comments: Order Date: 11/15/15How was Urine Obtained? SHAKE CUTTER TO [facility] [address]fr[address] [place], [address] HYALINE CAST 5-10 SEEN {/lpf} [...] (Normal) CLARITY Clear (Normal) COLOR Yellow (Normal) 1-Egp-613616:00 Basic Metabolic Profile (BMP) Comments: [facility] [address]ytv[address] [place], [place], [address] GAP 6 (Normal) Range: 5-15 CO2 24.0 [...] 7-18 GLU 88 mg/dL (Normal) Range: 70-110 0-Msm-122946:00 CBC W/Diff, Automated Comments: [facility] [address]htm[address] [place], [address] SMEAR COMMENT SCANNED (Normal) Absolute [...] 4.2-5.4 WBC 16.9 K/mm3 (Abnormal) Range: 4.4-11.0 1-Zcw-[id number]:00 Lipase Comments: [facility] [id number] [place], [address] LIPASE 446 U/L (Abnormal) Range: 73-393 4-Ela-499972:00 Liver Profile Comments: [facility] [id number] [place], [place], [id number] D BILI 0.06 mg/dL (Normal) Range: 0.00-0.30 T BILI 0.40 mg/dL (Normal) Range: 0.20-1.00 ALT 94 U/L (Abnormal) Range: 12-78 ALK P 66 U/L (Normal) Range: 50-136 AST 76 U/L (Abnormal) Range: 15-37 Comments: Moderate Hemolysis, Result may be falsely increased. GLOB 4.0 g/dL (Abnormal) Range: 2.3-3.5 ALB 3.3 g/dL (Abnormal) Range: 3.4-5.0 T PROT 7.3 g/dL (Normal) Range: 6.4-8.2 0-Lpk-026818:00 Thyroid Stim Hormone (TSH) Comments: [facility] [id number] [place], [address] TSH 1.12 {uIU/mL} (Normal) Range: 0.358-3.74 3-Tlx-179419:18 Thyroid Stim Hormone (TSH) Comments: [facility] [id number] [place], [place], [id number] TSH 0.59 {uIU/mL} (Normal) Range: 0.358-3.74 69-Pkr-523609:18 Pathology Report Comments: PERFORMED BY: K[facility]YT [facility] [place] [facility] [id number] [place] [facility] [id number] BY: INDYL [facility] [address]rcxxn[address] [place] [address] [id number] BY: LX [facility] Abefnta64418 [facility] [id number] Information: [id number] See MATER Comments: Material submitted: .SHAVE CHESTClinician [...] BISECTED AND SUBMITTED IN TOTO.XJW/TMZPathologist provided ICD-10:L57.0CPT .693343 52-Fuj-719706:40 Basic Metabolic Profile (BMP) Comments: 'TROP' Serial specimen #1, #2, #3, or #4: [address] [place] [address] [address]ls[address]res9665 [place], [address] GAP 7 (Normal) Range: 5-15 CO2 27.0 [...] 7-18 GLU 76 mg/dL (Normal) Range: 70-110 09-Uqq-727957:40 BNP,B-Type NATRIURETIC PEPTIDE Comments: [facility] [address]xarj[address] [place], [place], [address] B-TYPE HUMBLE PEP 406.4 pg/mL (Abnormal) Range: 0-100 32-Rgi-457861:40 CBC W/Diff, Automated Comments: [facility] Qaetiiknwu5142 [address] [place], [place], [address] Absolute Lymph 1.25 {X10_3/ul} (Normal) Range: 0.83-4.51 [...] 4.2-5.4 WBC 9.2 K/mm3 (Normal) Range: 4.4-11.0 73-Fnk-397612:40 Troponin-I Comments: 'TROP' Serial specimen #1, #2, #3, or #4: [facility] [address]rel[address]zfhc[address] [place], [address] TROPONIN-I 0.03 ng/mL (Normal) Comments: TROPONIN-I EXPECTED VALUES <0.05 NEGATIVE 0.06 - 0.59 AT RISK OF AL > OR = 0.60 SUGGEST AL 98-Mkp-020931:25 Urinalysis, Complete Comments: Order Date: 08/09/15How was Urine Obtained? [facility] [address]pfvoqxudx7748[place], [address] MUCUS, URINE 0 SEEN {/hpf} [...] (Normal) CLARITY Clear (Normal) COLOR Straw (Normal) 45-Hfm-757470:26 Basic Metabolic Profile (BMP) Comments: 'TROP' Serial specimen #1, #2, #3, or #4: [address] [place] [address] [address]xdct[address] [place], [place], [address] GAP 4 (Abnormal) Range: 5-15 CO2 29.0 [...] 7-18 GLU 66 mg/dL (Abnormal) Range: 70-110 80-Kxu-010525:26 CBC W/Diff, Automated Comments: [facility] [address]qf[address] [place], [place], [address] SMEAR COMMENT SCANNED (Normal) Absolute Lymph 2.04 [...] 4.2-5.4 WBC 18.6 K/mm3 (Abnormal) Range: 4.4-11.0 55-Fid-088430:26 Prothrombin Time w/INR Comments: [facility] Bsatfjdljr28[address] [place], [address] INR 1.1 (Normal) PROTIME 14.0 s (Normal) Range: 11.7-14.9 57-Cai-639216:26 Troponin-I Comments: 'TROP' Serial specimen #1, #2, #3, or #4: 1[facility] [address]waizgy[address] [place], [address] TROPONIN-I < 0.02 ng/mL (Normal) Comments: TROPONIN-I EXPECTED VALUES <0.05 NEGATIVE 0.06 - 0.59 AT RISK OF AL > OR = 0.60 SUGGEST AL 83-Fpf-368074:02 Bilirubin, Direct Comments: ORDERED LIPID,LIVERDRCLOVER ORDERED CBCD,TSH,LIPID,CMP,[facility] Qmyroyhvup80[address] [place], [address] D BILI 0.15 mg/dL (Normal) Range: 0.00-0.30 17-Tju-857701:02 CBC W/Diff, Automated Comments: [facility] [address]bkkuqf[address] [place], [address] Absolute Lymph 0.99 {X10_3/ul} (Normal) Range: 0.83-4.51 [...] 4.2-5.4 WBC 7.5 K/mm3 (Normal) Range: 4.4-11.0 84-Rgr-044885:02 Comprehensive Metabolic Comments: ORDERED LIPID,LIVERDRCLOVER ORDERED CBCD,TSH,LIPID,CMP,[facility] Daopgsflyt8645 [place], [address] Profil GAP 8 (Normal) Range: 5-15 CO2 [...] 7-18 GLU 80 mg/dL (Normal) Range: 70-110 23-Ebn-328466:02 Lipid Profile Comments: ORDERED LIPID,LIVERDRCLOVER ORDERED CBCD,TSH,LIPID,CMP,[facility] [address]lsqvnwy24[address] [place], [address] VLDL 18 mg/dL (Normal) Range: [...] 200-240 mg/dL Borderline >240 mg/dL High Risk 93-Frt-821400:02 Thyroid Stim Hormone Comments: ORDERED LIPID,LIVERDRCLOVER ORDERED CBCD,TSH,LIPID,CMP,[facility] [address]umlghzfyr9[address] [place], [address] (TSH) TSH 1.37 {uIU/mL} (Normal) Range: 0.358-3.74 91-Tgg-603133:02 Urinalysis, Complete Comments: How was Urine Obtained? [facility] [address]ztdd[address] [place], [address] MUCUS, URINE 0 SEEN {/hpf} [...] (Normal) CLARITY Clear (Normal) COLOR Straw (Normal) 02-Jjo-839059:40 Basic Metabolic Profile (BMP) Comments: REDRAW. PREVIOUS SPECIMEN REJECTED DUE TOHEMOLYSIS. 06/06/15 1526 [address].[facility] Zgyyhrnhma3460 [place], [place], [address] GAP 6 (Normal) Range: 5-15 CO2 28.0 [...] <126 mg/dLsuggests IMPAIRED HOMEOSTASIS per A.D.A. criteria. 35-Yvx-775217:10 CBC W/Diff, Automated Comments: [facility] Qpkdgwnkfh4[address] [place], [place], [address] Absolute Lymph 1.33 {X10_3/ul} (Normal) Range: 0.83-4.51 [...] Panel Comments: PATIENT NOT FASTINGPERFORMED BY: [facility] Ljlpcm3632 [facility] [id number] Information: [id number] (39[address]) Albumin, Serum 3.6 g/dL (Normal) Range: 3.5-4.8 [...] (Abnormal) Range: 65-99 Comments: Client Requested Flag 24-Ncw-614578:57 CK-MB Quantitative and Index Comments: Serial Specimen #1, #2 or #3? 2Comments: Should be drawn 2H after initial Troponin obtained'TROP' Serial specimen #1, #2, #3, or #4: 2Test performed at:[facility] [address] [place] [address] CPKMB 1.1 ng/mL (Normal) Range: 0.0-5.0 Comments: CK-MB and RI Interpretation MB Relative Index Non-AMI <or= 5 NA Indeterminate > 5 <or= 4 AMI > 5 > 4 CPK TOTAL 48 U/L (Normal) Range: 26-192 62-Syj-645588:57 Troponin-I Comments: Serial Specimen #1, #2 or #3? 2Comments: Should be drawn 2H after initial Troponin obtained'TROP' Serial specimen #1, #2, #3, or #4: 2Test performed at:[address] [place] [address] TROPONIN-I < 0.02 ng/mL (Normal) Comments: TROPONIN-I EXPECTED VALUES <0.05 NEGATIVE 0.06 - 0.59 AT RISK OF AL > OR = 0.60 SUGGEST AL 12-Sqr-264681:33 Comprehensive Metabolic Profil Comments: Test performed at:[facility] [address] [place] [address] GAP 6 (Normal) Range: 5-15 [...] Comments: Please note revised CREATININE reference range pdylgzkmz11/22/2015. BUN 35 mg/dL (Abnormal) Range: 7-18 GLU 53 mg/dL (Abnormal) Range: 70-110 90-Hkl-540381:33 CRP Comments: Test performed at:[facility] [address] [place] [address] C-REACTIVE PROT < 2.90 mg/L (Normal) Range: 0.0-3.0 Comments: C-Reactive Protein (CRP) provides useful information for thediagnosis, therapy and monitoring of inflammatory processesand associated diseases. For the evaluation of Relative Riskfor Cardiovascular Dise ase, a High Sensitivity CRP (HSCRP)should be ordered. 65-Gpw-427178:33 Erythrocyte Sed Rate Comments: Test performed at:[facility] [address] [place] [address] SED RATE 7 mm/h (Normal) Range: 0-30 71-Kpb-958503:38 URINE DAR CULTURE-NOREEN COL Comments: PATIENT NOT FASTINGPERFORMED BY: MISHA [facility] Izcsud[address] [facility] [place] [id number] Information: SRC:URC [id number] COUNT (05048) Result 1 NG36 (Normal) Comments: No growth in 36 - 48 hours. Urine Culture,Comprehensive Final report (Normal) 15-Xlo-510077:07 Urinalysis, Office (49223) UA - LEUKOCYTE ESTERASE Trace (Normal) UA - NITRITE Negative (Normal) URINE UROBILINGN NOREEN TIMED 2 mg/dL (Normal) UA - PROTEIN Negative mg/dL (Normal) UA - PH 5.0 (Normal) UA - BLOOD Negative (Normal) UA - SPECIFIC GRAVITY 1.015 (Normal) UA - KETONES Small mg/dL (Normal) UA - BILIRUBIN Negative (Normal) UA - GLUCOSE Negative (Normal) 08-Feb-20159:39 Pathology Report Comments: PERFORMED BY: EpicTopicCYT [facility] [place] Cyto Urhhk17184 [facility] [id number] BY: [facility] Dermatopathology Okwmcut[address] [id number] Information: [id number] See MATER Comments: Material submitted: .SHAVE BIOPSY [...] HOLOGIC CORRELATIONIS RECOMMENDED.02/13/2015Electronically signed: .Gege Reece MD, [place] topathologistGross description: .RECEIVED IS A CONTAINER LABELED IRIS ARRIAGA AND DESIGNATEDUPPER LESION ON CHEEK. IN FORMALIN IS A FERGUSON TISSUE MEASURING 4 X4 X 1 MM. IT IS INKED PURPLE, BISECTED, AND BOTH HALVES ARESUBMITTED IN A SINGLE CASSETTE.COR/BXSPathologist provided ICD-9:686.9, 682.0CPT .205757, 546289, 780675 84-Wzi-242907:29 T4 Total, Thyroxin Comments: PER PT ONLY TSH AND T4 TODAYTest performed at:[facility] [address] [place] [address] T4 THYROXIN 13.2 ug/dL (Normal) Range: 4.8-13.9 33-Cmp-716512:29 Thyroid Stim Hormone (TSH) Comments: PER PT ONLY TSH AND T4 TODAYTest performed at:[facility] [address] [place] [address] TSH 3.74 {uIU/mL} (Normal) Range: 0.358-3.74 03-Lff-692964:17 URINE DAR CULTURE-NOREEN COL Comments: PATIENT NOT FASTINGPERFORMED BY: [facility] Ijxbpd7592 [facility] [id number] Information: SRC: URINE COUNT (96647) Result 1 NG36 (Normal) Comments: No growth in 36 - 48 hours. Urine Culture,Comprehensive Final report (Normal) 71-Rnm-249832:48 Urinalysis, Office (65129) UA - LEUKOCYTE ESTERASE Negative (Normal) UA - NITRITE Negative (Normal) URINE UROBILINGN NOREEN TIMED Normal mg/dL (Normal) UA - PROTEIN Negative mg/dL (Normal) UA - PH 6.0 (Normal) Comments: 5.5 UA - BLOOD Negative (Normal) UA - SPECIFIC GRAVITY 1.010 (Normal) UA - KETONES Negative mg/dL (Normal) UA - BILIRUBIN Negative (Normal) UA - GLUCOSE Negative (Normal) 49-Hrz-622391:31 Basic Metabolic Profile (BMP) Comments: Test performed at:[facility] [address]pspejupr[address] [place], [place] [address] GAP 5 (Normal) Range: 5-15 CO2 27.0 mmol/L (Normal) Range: 21.0-32.0 CL 103 mmol/L (Normal) Range: 98-107 K 4.8 mmol/L (Normal) Range: 3.5-5.1 NA 135 mmol/L (Abnormal) Range: 136-145 CA 8.7 mg/dL (Normal) Range: 8.5-10.1 BUN/CRE 16.4 {RATIO} (Normal) Range: 10-20 CREAT,SERUM 1.1 mg/dL (Abnormal) Range: 0.6-1.0 BUN 18 mg/dL (Normal) Range: 7-18 GLU 89 mg/dL (Normal) Range: 70-110 39-Yjc-837767:31 Lipid Profile Comments: Test performed at:[facility] [address]qxa[address] [place] [address] VLDL 22 mg/dL (Normal) Range: [...] 200-240 mg/dL Borderline >240 mg/dL High Risk 77-Tbp-204245:31 Liver Profile Comments: Test performed at:[facility] T[address]osyvk28[address] [place] [address] D BILI 0.10 mg/dL (Normal) Range: 0.00-0.30 T BILI 0.30 mg/dL (Normal) Range: 0.00-4.00 ALT 35 U/L (Normal) Range: 12-78 ALK P 85 U/L (Normal) Range: 50-136 AST 38 U/L (Abnormal) Range: 15-37 GLOB 3.6 g/dL (Normal) Range: 2.7-4.2 ALB 3.7 g/dL (Normal) Range: 3.4-5.0 T PROT 7.3 g/dL (Normal) Range: 6.4-8.2 65-Mky-720190:31 T4 Total, Thyroxin Comments: Test performed at:[facility] [address] [place] [address] T4 THYROXIN 14.9 ug/dL (Abnormal) Range: 4.8-13.9 :31 Thyroid Stim Hormone (TSH) Comments: Test performed at:[facility] [address] [place] [address] TSH 2.32 {uIU/mL} (Normal) Range: 0.358-3.74 :30 CBC W/Diff, Automated Comments: Test performed at:[facility] [address] [place] [address] Absolute Lymph 1.12 {X10_3/ul} (Normal) [...] 4.2-5.4 WBC 8.8 K/mm3 (Normal) Range: 4.4-11.0 16-Ujq-597707:30 Urinalysis, Complete Comments: DR HUANG LIVER LIPID TSH T4 ONLYHow was Urine Obtained? CLEAN CATCHTest performed at:[facility] Cjwdplnxio3687 [facility] [place] [address] HYALINE CAST 0-5 SEEN {/lpf} [...] CLARITY Sl. Cloudy (Normal) COLOR Yellow (Normal) 32-Zsa-272361:09 CBC W/Diff, Automated Comments: Test performed at:[facility] Kndenlfqdp6489 [facility] [place] [address] Absolute Lymph 0.85 {X10_3/ul} (Normal) [...] 4.2-5.4 WBC 8.7 K/mm3 (Normal) Range: 4.4-11.0 07-Art-416012:09 Comprehensive Metabolic Profil Comments: 'TROP' Serial specimen #1, #2, #3, or #4: 1Test performed at:[facility] [address]qchmkadz40[address] [place], [place] [address] GAP 5 (Normal) Range: 5-15 CO2 27.0 [...] <126 mg/dLsuggests IMPAIRED HOMEOSTASIS per A.D.A. criteria. 74-Gzx-807144:09 Troponin-I Comments: 'TROP' Serial specimen #1, #2, #3, or #4: 1Test performed at:[facility] [address]xuhopen[address] [place], [place] [address] TROPONIN-I < 0.02 ng/mL (Normal) Comments: TROPONIN-I EXPECTED VALUES <0.05 NEGATIVE 0.06 - 0.59 AT RISK OF AL > OR = 0.60 SUGGEST AL 36-Jpw-102110:21 Rapid Flu (21058 x 2) Influenza A Ag neg (Normal) 6-Iyy-622618:05 TSH 6.19 {uIU/mL} (Abnormal) Range: 0.358-3.74 35-Eyx-14607:54 CBCMD ANC 10.3 3/uL (Abnormal) Range: 2.0-7.7 [...] CHOL 151 mg/dL (Normal) Comments: <200 mg/dL Wueibzsru538-950 mg/dL Borderline>240 mg/dL High Risk :54 TSH 0.72 {uIU/mL} (Normal) Range: 0.358-3.74 86-Fnt-592063:37 Rapid Strep Test, Office (78453) Comments: neg Rapid Strep Test, Office Negative (Normal) 20-Tzu-431467:03 DAR CULTURE-OTHER (03921) Comments: PATIENT NOT FASTINGPERFORMED BY: [facility] HospitalJzdpjo4173 [facility] [id number] Information: SRC:THRT [id number] Result 1 RRF (Normal) Comments: Routine respiratory julia Upper Respiratory Culture Final report (Normal) 78-Uoa-402612:12 Urinalysis, Office (37402) UA - BILIRUBIN Negative (Normal) UA - BLOOD Hemolyzed Trace (Normal) UA - GLUCOSE Negative (Normal) UA - KETONES Negative mg/dL (Normal) UA - LEUKOCYTE ESTERASE Trace (Normal) UA - NITRITE Negative (Normal) UA - PH 6.0 (Normal) UA - PROTEIN Negative mg/dL (Normal) UA - SPECIFIC GRAVITY 1.010 (Normal) URINE UROBILINGN NOREEN TIMED 2 mg/dL (Normal) 49-Xxf-949597:53 DEXA BONE DENSITY STUDY (HP) Radiology Report [...] Fink M.D.July 29, 2012 at 2:05:06 PM [id number] Signed GP/GP If you are the referring physician and would like to consult with theradiologist who provided this interpretation, please contact Aleida Osei at [phone]. If this radiologist is unavailable, youwil l be directed to another radiologist to assist. If you are a patient with a question regarding this report, pleasecontactyour referring physician directly. Professional Interpretation Provided By: [employer]ina, Phone , These documents contain legally [...] 07/29/12 1410 Sign by: Ed Fink MD 12-Saw-954872:37 BILAT SCRN DIGITAL & CAD Radiology Report [...] Fink M.D.July 14, 2012 at 1:35:04 PM [id number] Signed GP/GP If you are the referring physician and would like to consult with theradiologist who provided this interpretation, please contact Aleida Osei at [phone]. If this radiologist is unavailable, youwill be directed to another radiologist to assist. If you are a patient with a questi on regarding this report, pleasecontactyour referring physician directly. Professional Interpretation Provided By: [employer], Phone , These documents contain legally prot [...] mg/dL Comments: Order Date: 02/06/12OV Order #: [id number] ID: [id number] Comments: DX = 272.4 JLS [...] 12 hours, may have water.OV Order #: [id number] Order #: [id number] Comments: Reason:Interface Comments: DX = 427.31 [facility] 02/07/12OV Order #: [id number] Comments: DX = 428.0 [facility] 02/07/12 Range: 0.00-0.30 35-Ywo-817442:57 CMP Comments: Order Date: 02/06/12OV Order #: [id number] ID: [id number] Comments: DX = 272.4 [facility] 02/07/12Diagnosis: V58.69 - LONG-TERM USE OF [...] 12 hours, may have water.OV Order #: [id number] Order #: [id number] Comments: Reason:Interface Comments: DX = 427.31 [facility] 02/07/12OV Order #: [id number] Comments: DX = 428.0 [facility] 02/07/12 GAP 6 (Normal) Range: 5-15 [...] 7-18 GLU 92 mg/dL (Normal) Range: 70-110 19-Vld-164854:57 LIPID Comments: Order Date: 02/06/12OV Order #: [id number] ID: [id number] Comments: DX = 272.4 [facility] 02/07/12Diagnosis: V58.69 - LONG-TERM USE OF [...] 12 hours, may have water.OV Order #: [id number] Order #: [id number] Comments: Reason:Interface Comments: DX = 427.31 [facility] 02/07/12OV Order #: [id number] Comments: DX = 428.0 [facility] 02/07/12 VLDL 13 mg/dL (Normal) Range: [...] (Normal) Comments: Order Date: 02/06/12OV Order #: [id number] ID: [id number] Comments: DX = 272.4 JLS [...] 12 hours, may have water.OV Order #: [id number] Order #: [id number] Comments: Reason:Interface Comments: DX = 427.31 [facility] 02/07/12OV Order #: [id number] Comments: DX = 428.0 [facility] 02/07/12 Range: 2.5-4.9 57-Hqm-792525:57 T4 12.6 ug/dL (Normal) Comments: Order Date: 02/06/12OV Order #: [id number] ID: [id number] Comments: DX = 272.4 JLS [...] 12 hours, may have water.OV Order #: [id number] Order #: [id number] Comments: Reason:Interface Comments: DX = 427.31 [facility] 02/07/12OV Order #: [id number] Comments: DX = 428.0 [facility] 02/07/12 Range: 4.8-13.9 20-Nyk-779864:57 T4F 1.76 ng/dL (Abnormal) Comments: Order Date: 02/06/12OV Order #: [id number] ID: [id number] Comments: DX = 272.4 [facility] 02/07/12Diagnosis: V58.69 - LONG-TERM USE OF [...] 12 hours, may have water.OV Order #: [id number] Order #: [id number] Comments: Reason:Interface Comments: DX = 427.31 [facility] 02/07/12OV Order #: [id number] Comments: DX = 428.0 [facility] 02/07/12 Range: 0.76-1.46 63-Uxx-828922:57 TSH 2.47 {uIU/mL} (Normal) Comments: Order Date: 02/06/12OV Order #: [id number] ID: [id number] Comments: DX = 272.4 [facility] 02/07/12Diagnosis: V58.69 - LONG-TERM USE OF [...] 12 hours, may have water.OV Order #: [id number] Order #: [id number] Comments: Reason:Interface Comments: DX = 427.31 [facility] 02/07/12OV Order #: [id number] Comments: DX = 428.0 [facility] 02/07/12 Range: 0.358-3.74 59-Svn-934746:47 CBCD Comments: DR. VERGARA ORDERED CMP, RENAL, [...] 4.2-5.4 WBC 6.7 K/mm3 (Normal) Range: 4.4-11.0 3-Plp-531267:21 CBCD ANC 5.1 3/uL (Normal) Range: 2.0-7.7 [...] 4.2-5.4 WBC 7.8 K/mm3 (Normal) Range: 4.4-11.0 2-Nvj-634353:21 LIPID Comments: ORDERED TSH LIPID T4DR.BONEALIA ORDERED [...] VALVE PROLAPSEDiagnosis: 272.4 - HYPERLIPIDEMIAOV Order #: [id number] ID: [id number] Order #: [id number] Comments: Reason:OV Order #: [id number] VLDL 10 mg/dL (Normal) Range: 5-40 LDL [...] 200-240 mg/dL Borderline >240 mg/dL High Risk 9-Zry-277285:21 RENAL Comments: ORDERED TSH LIPID T4DR.CLARY ORDERED [...] VALVE PROLAPSEDiagnosis: 272.4 - HYPERLIPIDEMIAOV Order #: [id number] ID: [id number] Order #: [id number] Comments: Reason:OV Order #: [id number] CO2 26.0 mmol/L (Normal) Range: 21.0-32.0 CL [...] 7-18 GLU 87 mg/dL (Normal) Range: 70-110 4-Ykh-013754:21 T4 15.1 ug/dL (Abnormal) Comments: ORDERED TSH [...] VALVE PROLAPSEDiagnosis: 272.4 - HYPERLIPIDEMIAOV Order #: [id number] ID: [id number] Order #: [id number] Comments: Reason:OV Order #: [id number] Range: 4.8-13.9 1-Aie-849921:21 TSH 1.69 {uIU/mL} (Normal) Comments: ORDERED TSH [...] VALVE PROLAPSEDiagnosis: 272.4 - HYPERLIPIDEMIAOV Order #: [id number] ID: [id number] Order #: [id number] Comments: Reason:OV Order #: [id number] Range: 0.358-3.74 85-Tgq-58734:57 BMP GAP 7 (Normal) Range: 5-15 CO2 [...] :57 TSH 2.61 {uIU/mL} (Normal) Range: 0.358-3.74 93-Iop-865736:38 URINE DAR CULTURE-NOREEN COL Comments: PATIENT NOT FASTINGPERFORMED BY: [facility] HospitalDhpcgt6579 [facility] [id number] Information: SRC: URINE COUNT (29851) Result 1 NG36 (Normal) Comments: No growth in 36 - 48 hours. Urine Culture,Comprehensive Final report (Normal) :42 Urinalysis, Office (12515) UA - BILIRUBIN Negative (Normal) UA - BLOOD Non Hemolyzed Trace (Normal) UA - GLUCOSE Negative (Normal) UA - KETONES Negative mg/dL (Normal) UA - LEUKOCYTE ESTERASE Trace (Abnormal) UA - NITRITE Negative (Normal) UA - PH 5.0 (Normal) UA - PROTEIN Negative mg/dL (Normal) UA - SPECIFIC GRAVITY 1.005 (Normal) URINE UROBILINGN NOREEN TIMED Normal mg/dL (Normal) 74-Jon-949852:03 Urinalysis, Office (06799) UA - BILIRUBIN Negative (Normal) UA - BLOOD Hemolyzed Trace (Normal) UA - GLUCOSE Negative (Normal) UA - KETONES Negative mg/dL (Normal) UA - LEUKOCYTE ESTERASE Trace (Normal) UA - NITRITE Negative (Normal) UA - PH 5.0 (Normal) UA - PROTEIN Negative mg/dL (Normal) UA - SPECIFIC GRAVITY 1.010 (Normal) URINE UROBILINGN NOREEN TIMED Normal mg/dL (Normal) 4-Fcj-261513:00 BMP Comments: JANET ORDERED BMP MG T4 [...] 7-18 GLU 88 mg/dL (Normal) Range: 70-110 2-Whd-836123:00 LIPID Comments: JANET ORDERED BMP MG T4 [...] 200-240 mg/dL Borderline >240 mg/dL High Risk 7-Oqu-542076:00 LIVER Comments: JANET ORDERED BMP MG T4 TSH LIVER LIPIDBONEZZI ORDERED BMP TSH T4F D BILI 0.11 mg/dL (Normal) Range: 0.00-0.30 T BILI 0.40 mg/dL (Normal) Range: 0.00-1.00 ALT 26 U/L (Normal) Range: 12-78 ALK P 70 U/L (Normal) Range: 50-136 AST 23 U/L (Normal) Range: 15-37 ALB 4.1 g/dL (Normal) Range: 3.4-5.0 T PROT 8.0 g/dL (Normal) Range: 6.4-8.2 8-Kfz-225632:00 MG 2.0 mg/dL (Normal) Comments: JANET ORDERED BMP MG T4 TSH LIVER LIPIDBONEZZI ORDERED BMP TSH T4F Range: 1.5-2.2 8-Nlu-327250:00 T4 FREE DIRECT 1.69 ng/dL (Abnormal) Comments: JANET ORDERED BMP MG T4 TSH LIVER LIPIDBONEZZI ORDERED BMP TSH T4F Range: 0.76-1.46 3-Xea-690964:00 T4 THYROXIN 14.3 ug/dL (Abnormal) Comments: JANET ORDERED BMP MG T4 TSH LIVER LIPIDBONEZZI ORDERED BMP TSH T4F Range: 4.8-13.9 4-Ecz-963122:00 TSH 2.00 {uIU/mL} (Normal) Comments: JANET ORDERED BMP MG T4 TSH LIVER LIPIDBONEZZI ORDERED BMP TSH T4F Range: 0.358-3.74 3-Cck-841659:46 Anaerobic and Aerobic Comments: PERFORMED BY: [facility] [facility] [id number] Information: SRC:EB RIGHT ELBOW Culture Result 1 NG36 (Normal) Comments: No growth in 36 - 48 hours. Aerobic Culture Final report (Normal) Result 1 [id number] (Normal) Comments: No aerobic or anaerobic growth in 72 hours. Anaerobic Culture Final report (Normal) 0-Bni-364079:39 Urinalysis, Office ([id number]) UA - BILIRUBIN Negative (Normal) UA - BLOOD Negative (Normal) UA - GLUCOSE Negative (Normal) UA - KETONES Negative mg/dL (Normal) UA - LEUKOCYTE ESTERASE Negative (Normal) UA - NITRITE Negative (Normal) UA - PH 5.0 (Normal) UA - PROTEIN Negative mg/dL (Normal) UA - SPECIFIC GRAVITY 1.015 (Normal) URINE UROBILINGN NOREEN TIMED 2 mg/dL (Normal) 99-Soc-31498:00 L/S SPINE,MIN 4 VIEWS Radiology Report See [...] (Abnormal) Range: 0-34 Comments: Performed at: - [facility] [id number] Director: Bella Taylor MD, Phone: [phone] TOTAL 0.8 ng/mL (Normal) Comments: ORDERED [...] TPO T3F T4F 2:06 (Abnormal) Range: 0.358-3.74 33-Pim-374145:13 BMP GAP 12 (Normal) Range: 5-15 CO2 [...] 7-18 GLU 95 mg/dL (Normal) Range: 70-110 42-Wjz-777001:13 CBCD ABSOLUTE NEUT 5.1 3/uL (Normal) Range: [...] 4.2-5.4 WBC 7.1 K/mm3 (Normal) Range: 4.4-11.0 78-Eua-612470:34 Vaginitis/Vaginosis, DNA Probe Comments: [facility]: [facility] [id number] Information: SRC:CE Gardnerella vaginalis Negative (Normal) Trichomonas [...] Visit for suture removal Concussion : Reviewed [employer] Letter Indication: Concussion Fall, accidental : Reviewed [employer] Letter Indication: Fall, accidental Fall, accidental [...] Cerumen impaction : Follow up in with [facility] for ear irrigation Indication: Cerumen impaction [...] tract infection, unspecified type Planned Observations TSH ([id number])Indication: Memory impairment On: 24-Fqd-505633:11 Request AMMONIA ([id number])Indication: Memory impairment On: 28-Uee-431347:11 Request Methymalonic Acid, Serum (13188)Indication: Memory impairment On: 09-Wxj-968691:11 Request VITAMIN B-12 (CYANOCOBALAMIN) (51532)Indication: Memory impairment On: 57-Rdw-692061:11 Request FOLIC ACID SERUM (05712)Indication: Memory impairment On: 36-Hpx-403584:11 Request METABOLIC PANEL, COMPREHENSIVE (04292)Indication: Coronary artery disease On: 05-Wsc-597592:02 Request Comments: fax copy to SHAWN Bonilla, BY NMR (06005)Indication: Coronary artery disease On: 67-Rts-695058:02 Request CALCIFIDIOL (77148) VIT D 25Indication: Vitamin D deficiency On: 63-Zzy-633279:02 Request Metabolic Panel, Comprehensive ([id number])Indication: Hypokalemia On: 12-Nov-2017 Request Comments: fax a copy to Dr. Caitlin May [phone] Huang [phone] MAGNESIUM ([id number])Indication: Hypokalemia On: 3-Fip-970624:03 Request Metabolic Panel, Comprehensive ([id number])Indication: Hypokalemia On: 3-Zwn-282462:02 Request Comments: fax a copy to Dr. Caitlin May [phone] Huang [phone] Metabolic Panel, Comprehensive ([id number])Indication: Hypokalemia On: 05-Nov-2017 Request Comments: fax a copy to Dr. Caitlin [id number] Huang [phone] Metabolic Panel, Comprehensive ([id number])Indication: Hypokalemia On: 29-Oct-2017 Request Comments: fax a copy to Dr. Caitlin [id number] Huang [phone] Metabolic Panel, Comprehensive ([id number])Indication: Hypokalemia On: 22-Oct-2017 Request Comments: fax a copy to Dr. Caitlin [phone] Huang [phone] Metabolic Panel, Comprehensive ([id number])Indication: Hypokalemia On: 15-Oct-2017 Request Comments: fax a copy to Dr. Tucker [phone] Huang [phone] Metabolic Panel, Comprehensive ([id number])Indication: Hypokalemia On: 08-Oct-2017 Request Comments: fax a copy to Dr. Caitlin May [phone] Huang [phone] Metabolic Panel, Comprehensive ([id number])Indication: Hypokalemia On: 01-Oct-2017 Request Comments: fax a copy to Dr. Caitlin May [phone] Huang [phone] Metabolic Panel, Comprehensive ([id number])Indication: Hypokalemia On: 24-Sep-2017 Request Comments: fax a copy to Dr. Caitlin May [phone] Huang [phone] Renal function Panel (60390)Indication: Renal insufficiency (Renamed from Renal function impairment) On: 18-Hfd-295463:23 Request URIC ACID BLOOD (25513)Indication: Abnormal laboratory test On: 49-Pbn-454186:53 Request Metabolic Panel, Comprehensive ([id number])Indication: Hypokalemia On: 17-Sep-2017 Request Comments: fax a copy to Dr. Caitlin May [phone] Huang [phone] Metabolic Panel, Comprehensive ([id number])Indication: Hypokalemia On: 10-Sep-2017 Request Comments: fax a copy to Dr. Caitlin May [phone] Huang [phone] Metabolic Panel, Basic (08162)Indication: Cardiomyopathy On: 64-Mia-808108:02 Request Comments: now stat and prn CREATININE BLOOD (34656)Indication: Left leg swelling On: 12-Wny-060493:05 Request Metabolic Panel, Basic (44498)Indication: Renal insufficiency (Renamed from Renal function impairment) On: 15-Cix-797330:16 Request Comments: re check in 4 weeks T4, FREE (THYROXINE) ([id number])Indication: Hypothyroidism On: 88-Orj-434726:49 Request CALCIFIDIOL (15548) VIT D 25Indication: Vitamin D deficiency On: 13-Rqg-107644:47 Request TSH (THYROID STIMULATING HORMONE) (34997)Indication: Hypothyroidism On: 80-Ulo-740521:46 Request CREATININE BLOOD (85438)Indication: Abdominal pain, acute On: 70-Anv-924407:34 Request Metabolic Panel, Basic (28994)Indication: Abdominal pain, acute On: 97-Nij-97023:31 Request T4, FREE (THYROXINE) (53075)Indication: Hypothyroidism On: :30 Request TSH (12027)Indication: Hypothyroidism On: :30 Request METABOLIC PANEL, COMPREHENSIVE (21205)Indication: DVT, bilateral lower limbs On: 30-Wyz-843664:48 Request PTT (Activated Partial Thromboplastin Time) ([id number])Indication: DVT, bilateral lower limbs On: :29 Request PT (Prothrobim Time) (73554)Indication: DVT, bilateral lower limbs On: 20-Xqt-617595:29 Request Factor 2 (Prothrombin) Gene Mutation (76997)Indication: DVT, bilateral lower limbs On: :29 Request Factor V Leiden (18806)Indication: DVT, bilateral lower limbs On: :28 Request Antiphospholipid atb (48948)Indication: DVT, bilateral lower limbs On: :28 Request CBC, Platelets & Auto Diff (75029)Indication: Abdominal pain, acute On: 48-Pux-31206:38 Request Comments: coipy to Dr. jessie armendariz stat HEPATIC FUNCTION PANEL (86166)Indication: Abdominal pain, acute On: :37 Request Comments: to stat copy to Dr. natalie armendariz Metabolic Panel, Comprehensive ([id number])Indication: Abdominal pain, acute On: :23 Request Comments: all STAT Sed Rate Erythrocyte (85240)Indication: Abdominal pain, acute On: 78-Gnu-42391:19 Request CBC, Platelets & Auto Diff (39916)Indication: Abdominal pain, acute On: :19 Request Ferritin (10595)Indication: Abnormal RBC indices On: :08 Request CALCIFEDIOL (70857)Indication: Vitamin D deficiency On: :02 Request Folic Acid Serum (86627)Indication: Memory impairment On: :35 Request Methymalonic Acid, Serum (48121)Indication: Memory impairment On: :35 Request Vitamin B-12 (cyanocobalamin) (31822)Indication: Memory impairment On: :35 Request Metabolic Panel, Basic (65427)Indication: Cardiomyopathy in other diseases classified elsewhere On: :43 Request Urinalysis, Office (27507)Indication: Abdominal pain, acute On: 95-Jfi-108539:47 Request URINE DAR CULTURE-IDENTIFICATN (36064)Indication: Abdominal pain, acute On: 50-Tkx-308180:20 Request TSH (28171)Indication: Hypothyroidism On: 36-Wqd-465798:50 Request Comments: 8 weeks TSH (98529)Indication: Hypothyroidism On: :58 Request URINALYSIS, W/ MICRO (70804)Indication: Coronary artery disease On: :57 Request METABOLIC PANEL, COMPREHENSIVE (69856)Indication: Coronary artery disease On: :57 Request LIPID PANEL (17685)Indication: Coronary artery disease On: :57 Request CBC with auto diff (75649)Indication: Coronary artery disease On: :57 Request C-REACTIVE PROTEIN (09032)Indication: Abdominal pain, acute, generalized On: 57-Yjn-653362:31 Request Comments: stat CBC W/AUTO DIFF WBC (64479)Indication: Abdominal pain, acute, generalized On: :31 Request Comments: stat METABOLIC PANEL, COMPREHENSIVE (07166)Indication: Abdominal pain, acute, generalized On: :31 Request Comments: stat SED RATE ERYTHROCYTE (11794)Indication: Abdominal pain, acute, generalized On: 28-Hqe-365787:26 Request CBC with auto diff (29925)Indication: Cardiomyopathy On: :59 Request Comments: copy to Dr. valerio URINALYSIS, W/ MICRO ([id number])Indication: Cardiomyopathy On: :58 Request METABOLIC PANEL, COMPREHENSIVE ([id number])Indication: Cardiomyopathy On: :58 Request LIPID PANEL ([id number])Indication: Cardiomyopathy On: :58 Request TSH ([id number])Indication: Hypothyroidism On: :58 Request CBC W/AUTO DIFF WBC ([id number])Indication: Coronary artery disease On: :08 Request Comments: copy to cardiology TSH ([id number])Indication: Hypothyroidism On: :08 Request URINALYSIS, W/ MICRO ([id number])Indication: Coronary artery disease On: :08 Request METABOLIC PANEL, COMPREHENSIVE (87417)Indication: Coronary artery disease On: :08 Request LIPID PANEL ([id number])Indication: Coronary artery disease On: :08 Request METABOLIC PANEL, COMPREHENSIVE ([id number])Indication: Coronary artery disease On: :15 Request Comments: 05-24 CBC WITH MANUAL DIFF ([id number])Indication: Coronary artery disease On: :15 Request Comments: 05-24 TSH ([id number])Indication: Hypothyroidism On: 18-Nog-209047:13 Request TSH ([id number])Indication: Hypothyroidism On: 98-Nvq-613453:18 Request CBC WITH MANUAL DIFF ([id number])Indication: Coronary artery disease On: 9-Ipc-944745:11 Request Comments: copy to [facility] URINALYSIS, W/ MICRO ([id number])Indication: Coronary artery disease On: 1-Pqt-402716:11 Request METABOLIC PANEL, COMPREHENSIVE ([id number])Indication: Coronary artery disease On: 3-Qpk-104473:11 Request LIPID PANEL (52171)Indication: Coronary artery disease On: 1-Dfv-071681:11 Request TSH ([id number])Indication: Hypothyroidism On: 5-Sxn-040101:11 Request TSH ([id number])Indication: Hypothyroidism On: 39-Vja-314601:02 Request METABOLIC PANEL, COMPREHENSIVE (13739)Indication: Cardiomyopathy On: 58-Zvb-643337:02 Request LIPID PANEL ([id number])Indication: Cardiomyopathy On: 31-Wdk-146662:02 Request CBC WITH MANUAL DIFF ([id number])Indication: Cardiomyopathy On: 32-Jdy-056755:02 Request TSH (60114)Indication: Hypothyroidism On: :29 Request Renal function Panel ([id number])Indication: Renal insufficiency (Renamed from Renal function impairment) On: 66-Hfa-455586:29 Request CBC (Auto) (60040)Indication: Cardiomyopathy On: :40 Request Metabolic Panel, Comprehensive (79727)Indication: Cardiomyopathy On: :40 Request T4, FREE (THYROXINE) ([id number])Indication: Hypothyroidism On: 90-Ura-770291:39 Request TSH ([id number])Indication: Hypothyroidism On: 40-Clu-133391:39 Request TSH ([id number])Indication: Hypothyroidism On: 1-Yhs-809959:09 Request CBC (Auto) (03801)Indication: Cardiomyopathy On: 6-Eau-851337:08 Request Renal function Panel (50553)Indication: Cardiomyopathy On: :08 Request Metabolic Panel, Basic (59044)Indication: Cardiomyopathy On: :03 Request T4, FREE (THYROXINE) (51811)Indication: Hypothyroidism On: :03 Request TSH ([id number])Indication: Hypothyroidism On: :03 Request Metabolic Panel, Basic (16382)Indication: Renal insufficiency (Renamed from Renal function impairment) On: 27-Ivm-496464:36 Request T4, FREE (THYROXINE) (83394)Indication: Hypothyroidism On: :35 Request TSH ([id number])Indication: Hypothyroidism On: :35 Request DAR CULTURE-OTHER (05924)Indication: Bursitis, olecranon On: 7-Epq-043504:18 Request Comments: olecranon bursa Metabolic Panel, Basic ([id number])Indication: Hyperlipemia On: 16-Njt-653411:09 Request Metabolic Panel, Basic ([id number])Indication: Gastroenteritis On: 75-Fyb-546485:56 Request Comments: stat CBC (Auto) ([id number])Indication: Gastroenteritis On: 61-Cew-890963:56 Request Metabolic Panel, Basic ([id number])Indication: Cardiomyopathy On: :53 Request TSH ([id number])Indication: PVT (paroxysmal ventricular tachycardia) On: 36-Egf-049552:53 Request URINALYSIS (18501)Indication: Cardiomyopathy On: :53 Request CBC (Auto) ([id number])Indication: Cardiomyopathy On: 69-Kxr-637846:53 Request INFCT ANTGN TRICH VAGIN DIRECT PRB (00469)Indication: Vaginal discharge On: 94-Fzs-630973:31 Request GARDNERELLA VAG, NUCLEIC ACID DIR PROBE ([id number])Indication: Vaginal discharge On: :31 Request ILEANA, NUCLEIC ACID DIRECT PROBE ([id number])Indication: Vaginal discharge On: 96-Xuh-504789:31 Request Planned Encounters Medical; [facility] 2 Month FU - On: 06-Jul-2018 10:15 [facility] Clary TIRADO, Minerva Oseguera MD Planned Procedures Flu Vaccine (Quadrivalent) On: 01-Jun-2018 Intent 06066Df: Visit, Nurse Comments: Lot #[id number]-L dltd, IMDose prefilled syringegiven by:SORAIDA Calloway reviewed and ABN signed Aerosol Treatment (90260)By: On: 08-Jan-2018 Intent Clary TIRADO, Minerva Oseguera MD SCREENING DIGITAL On: 23-Sep-2017 Intent TOMOSYNTHESIS OF BREAST (59402)By: Minerva Vergara MD, MD, Dana M Venous Doppler - LowerBy: On: 23-Sep-2017 Intent Minerva Vergara MD Comments: lower left extremity follow up on DVT from 07-27 due october Minerva TIRADO CTA ABDOMEN AND PELVIS On: 28-Jul-2017 Intent INCLUDING IMAGE POSTPROCESSING (50015)By: Clary TIRADO, Minerva Oseguera MD VENOUS DOPPLER LOWER On: 28-Jul-2017 Intent EXTREMITY (39122)By: Clary Comments: upper and lower left legcall results to [phone] Minerva TIRADO MD, Dana M Radiology - [...] FLAT PLATE AND On: 04-Dec-2016 Intent ERECT (66197)By: Ida Quiñonez DO CT - Chest (IV Contrast On: 04-Dec-2016 Intent Needed)By: Ida Quiñonez DO Comments: pe protocol today CT - Abdomen (Without On: 25-Nov-2016 Intent Contrast)By: Minerva Vergara MD, MD, Dana M Spirometry (85045)By: On: 31-Oct-2016 Intent Minerva eVrgara MD Comments: see scanned document of test done to see results reviewed today with patient Minerva TIRADO Radiology - ChestBy: Clary On: 31-Oct-2016 Intent Minerva TIRADO MD, Dana M Comments: call wet read Radiology - KUBBy: Clary On: 31-Oct-2016 Intent Minerva TIRADO MD, Dana M Comments: upright. call wet read to [phone] Bone Density StudyBy: Clary On: 29-Jul-2016 Intent Minerva TIRADO MD, Dana M MAMMOGRAM, BILATERAL On: 29-Jul-2016 Intent (09536)By: Minerva Vergara MD, MD, Dana M Flu Vaccine (Quadrivalent) On: 09-May-2016 Intent 15106Ed: Slarb MUSEUM EXHIBIT DESIGNER, Meka ELECTROCARDIOGRAM, COMPLETE On: 09-Aug-2015 Intent (ECG) (52923)By: Memo Armendariz CNP Radiology - ChestBy: Clary On: 17-Jul-2015 Intent Minerva TIRADO MD, Dana M Aerosol Treatment (17619)By: On: 14-Jul-2015 Intent Minerva Vergara MD, MD, Dana M Aerosol Treatment (77368)By: On: 29-May-2015 Intent Slarb MUSEUM EXHIBIT DESIGNER, Meka ADMINISTRATION OF INFLUENZA On: 25-Apr-2015 Intent VIRUS VACCINE (G0008)By: Minerva Vergara MD, MD, Dana M Flu Vaccine (Quadrivalent) On: 25-Apr-2015 Intent 54753Pc: Minerva Vergara MD Comments: lot: [id number]: 01/07/16site/route: L del/IMamt: 0.5mLVIS signed when applicableИВАН Rodriguez MD, Dana M ACUTE ABDOMINAL SERIES On: 27-Mar-2015 Intent (16852)By: Ida Quiñonez DO Comments: stat call wet read INFUSION, NORMAL SALINE On: 04-Nov-2014 Intent SOLUTION , 1000 CC (Special Comments: only 500 ccIV Therapy [id number], 1 inchSite: r acTolerated: well, x 2nd attempt. L ac infiltrated and rpessure applied then covered with gauze and bandageno redness or swelling, no s/s infiltrationMegan, MUSEUM EXHIBIT DESIGNER Coverage Instructions Apply. See MCM: 9) (J7030)By: Minerva Vergara MD, MD, Dana M Radiology - KUBBy: Clary On: 04-Nov-2014 Minerva Wright MD, MD, Dana M Comments: do today and call over wet read Radiology - Shoulder - On: 04-Nov-2014 Intent RightBy: Minerva Vergara MD, MD, Dana M Wax CurettesBy: Clary TIRADO, On: 15-Sep-2014 Intent Minerva Oseguera MD Ear Irrigation ([id number])By: On: 15-Sep-2014 Intent Minerva Vergara MD, MD, Dana M Radiology - Shoulder - On: 15-Sep-2014 Intent RightBy: Minerva Vergara MD, MD, Dana M Radiology - ChestBy: Clary On: 15-Sep-2014 Intent Minerva TIRADO MD, Dana M Comments: by next week if not better with atb Aerosol Treatment (80971)By: On: 01-Sep-2014 Intent Memo Armendariz CNP DEXA SCAN AXIAL SKELETON On: 18-Feb-2014 Intent (22151)By: Minerva Vergara MD, MD, Dana M MAMMOGRAM, SCREENING, BOTH On: 18-Feb-2014 Intent BREAST (93868)By: Minerva Vergara MD, MD, Dana M INFUSION, NORMAL SALINE On: 29-Oct-2013 Intent SOLUTION , 250 CC (Special Coverage Instructions Apply. See MCM: 2049) (J7050)By: Tiera Carmen DO IV Needle placement On: 29-Oct-2013 Intent (60469)By: Kermit WEBER, Comments: 3rd attempt successful in R RJ Wagner Tiera IV Infusion (51052)By: Kermit On: 29-Oct-2013 Tiera Wright DO Eprescribed prescriptions On: 29-Oct-2013 Intent (G8553)By: Tiera Carmen DO Aerosol Treatment (53825)By: On: 29-Oct-2013 Intent Tiera Carmen DO Solu- Medrol Injection, 125mg On: 29-Oct-2013 Intent (J2930)By: Kermit WEBER, Comments: lot: [id number]: 12/23site/route: RGM/IMamt:2mLVIS signed when applicableChelsИВАН gutiérrez Tiera Eprescribed prescriptions On: 26-Oct-2013 Intent (G8553)By: Clary TIRADO, Minerva Oseguera MD Wax CurettesBy: Ciglenysa ALTERATION WORKER, On: 22-Oct-2013 Intent Saba Ear Irrigation (45804)By: On: 22-Oct-2013 Intent Ciesa ALTERATION WORKER, Saba Eprescribed prescriptions On: 25-Jun-2013 Intent (G8553)By: Jeanne Gil LPN Wax CurettesBy: Clary TIRADO, On: 18-Jun-2013 Intent Minerva Vergara MD, Minerva Painting Ear Irrigation (96973)By: On: 18-Jun-2013 Intent Clary TIRADO, Minerva Vergara MD, Minerva Painting Eprescribed prescriptions On: 18-Jun-2013 Intent (G8553)By: Jeanne Gil LPN MAMMOGRAM, SCREENING, BOTH On: 16-Mar-2013 Intent BREASTS (92633)By: Clary Comments: 06-23 maddi TIRADO, Minerva Vergara MD, Minerva Painting Wax CurettesBy: Clary TIRADO, On: 16-Mar-2013 Intent Minerva Vergara MD, Minerva Painting Ear Irrigation (46963)By: On: 16-Mar-2013 Intent Minerva Vergara MD, MD, Dana M Inhaler Demonstration On: 15-Feb-2013 Intent (89842)By: Memo Armendariz CNP Aerosol Treatment (55963)By: On: 15-Feb-2013 Intent Memo Armendariz CNP Eprescribed prescriptions On: 08-Dec-2012 Intent (G8553)By: Jeanne Gil LPN Aerosol Treatment (94936)By: On: 03-Dec-2012 Intent Minerva Vergara MD, MD, Dana M Pulse Oximetry (44271)By: On: 03-Dec-2012 Intent ARON Lawrence Wax CurettesBy: Kala HAZEL, On: 25-Nov-2012 Intent Memo Weeks Ear Irrigation (57976)By: On: 25-Nov-2012 Intent Memo Armendariz CNP SPECIMEN HNDLNG/TRNSPRT, OFFC On: 25-Nov-2012 Intent > LAB (09574)By: Nova Posadas LPN Breast Screening - On: 28-Apr-2012 Intent BilateralBy: Minerva Vergara MD, MD, Dana M Bone Density StudyBy: Clary On: 28-Apr-2012 Intent Minerva TIRADO MD, Dana M Aerosol Treatment (13859)By: On: 28-Apr-2012 Intent Minerva Vergara MD, MD, Dana M TDAP VACCINE >7 IM (84142)By: On: 06-Feb-2012 Intent Sneha Vasquez doppler/ultrasound - right On: 20-Jan-2012 Intent calfBy: Minerva Vergara MD Comments: attention subcutaneous mass, history of clots Minerva Vergara MD Ear Irrigation (04078)By: On: 11-Oct-2011 Intent Minerva Vergara MD Comments: med amt of wax removed from the left ear. small amt of wax removed from the right ear. pt tolerated well. Minerva TIRADO Wax CurettesBy: Clary TIRADO, On: 11-Oct-2011 Intent Minerva Oseguera MD Aerosol Treatment (61455)By: On: 08-Oct-2011 Intent Memo Armendariz CNP Aerosol Treatment (79397)By: On: 04-Oct-2011 Intent Memo Armendariz CNP EKG (40075)By: Clary TIRADO, On: 15-Aug-2011 Intent Minerva Oseguera MD Comments: see scanned document. Nerve ConductionBy: Clary On: 29-Jul-2011 Intent Minerva TIRADO MD, Dana M Comments: lower leg EMGBy: Minerva Vergara MD On: 29-Jul-2011 Intent Minerva Vergara MD Solu -Medrol Injection, 125 On: 16-Apr-2011 Intent mg (J2930)By: Kala HAZEL, Comments: Lot:[id number]:sep 11 2013Amt:125mgRoute:IMSite:right hip Given By: RJ Soriano Memo Weeks THER/PROPH/DIAG IV INF, INIT On: 15-Feb-2011 Intent (20486)By: Minerva Vergara MD, MD, Dana M Rocephin [...] Minerva TIRADO MD, Dana M Pulse Oximetry (93862)By: On: 03-Sep-2010 Intent ARON Lawrence Radiology - Lumbar SpineBy: On: 29-Aug-2010 Intent Ida Quiñonez DO Comments: call wet read Venous Doppler - LeftBy: On: 23-Jul-2010 Intent Minerva Vergara MD Comments: leg. send copy Dr. [place] orthosMinerva lovett MD HYDRATION IV INFUSION, INIT On: 28-Jun-2010 Intent (29863)By: Minerva Vergara MD Comments: only gave 500 cc of LR with CMP historyLot #:[id number] date:mount given:500ml Route: IVSite given:left wrist Given by: [facility] [employer] Resourcesssell Butterfly needle placed to left wrist with [...] SPECIFIED, 10 MG Ordered: 25-Dec-2010 Pending Minerva eVrgara MD, MD, Dana M Instructions Name Dates [...] The patient does have durable power of contract attorney and living will. The patient has noticed nothing from the geriatic depression scale. Other providers contributing to the patient's care are wood cut engraver and other: (Dr. Tucker Endocrine). Encounter Diagnosis: [...] The patient does have durable power of contract attorney and living will. The patient has noticed having problems with memory than others and lack of energy. Other providers contributing to the patient's care are wood cut engraver (Reina) and other: (eye doctor - has [...] Isaac Joint End: 19-Apr-2011 10:08 Implant Surgeon [place], [place] ) . There have been no [...]
--- OUTSIDE RECORDS SUMMARY | 2018-09-02 18:28 | XMS RPT_ITS ---
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 :tyrese 06/19/18 TC: 5 CPT:69333 HEADER OPERATION: Surgical preparation right knee with incision and drainage PRE-OP DIAGNOSIS: Hematoma right knee TISSUE SUBMITTED: Hematoma right knee MICROSCOPIC DESCRIPTION Slides are reviewed. MICROSCOPIC DIAGNOSIS Hematoma right knee: Skin with underlying tissue with blood clot and separate blood clots, clinical hematoma right knee. SJ:tyrese 06/22/18 Signed Norman Peters 06/22/18 <signature on file> Performed By: #### PTHRO #### [facility] [address] [place], [place], [address] CARDIOLOGY VISIT Observed: 06/17/2018 Status: F Source: [place] REPORT 2:35 PM [facility] REPOSITORY [facility] [address] [place] [address] OFFICE VISIT Date of Service: 06/17/18 MR#: [id number] Acct: [id number] Name: IRIS ARRIAGA Rep #: [id number] : 1940 Provider: Gurdeep Huang MD Age/Sex: 78/F Location: [facility] Status: Signed HPI HPI Details: IRIS ARRIAGA, is a 78 F who presents to the office today for outpatient cardiovascular follow-up. At the present time she denies any symptoms of ongoing chest pain. She admits to chronic shortness of breath and dyspnea but without significant change since her last visit. She has not had any obvious orthopnea or PND or peripheral pitting edema. She has no near syncope or syncope. She states she was at [facility] recently for her follow-up visit. She was told that she would continue to be managed medically. She was told she was not in need of a percutaneous mitral valve procedure at this time. However they will still follow her as this knee may change. She was noted on examination today to have what appeared to be [...] QHS PRN 07/22/15 [History Confirmed 06/17/18] Aspirin [Aspirin, Baby] 81 mg PO DAILY@0800 [...] 20 mEq tablet,extended release 20 meq PO .COMPLEX 06/17/18 [History Confirmed 06/17/18] [facility] Medical History Paroxysmal ventricular tachycardia (Acute) Paroxysmal atrial tachycardia (Acute) Paroxysmal atrial fibrillation (Acute) Chronic systolic (congestive) heart failure (Chronic) Thrombophlebitis of left internal iliac vein (Acute) Bilateral carpal tunnel syndrome (Resolved) Menopausal osteoporosis (Chronic) Myalgia (Chronic) Renal insufficiency (Acute) Balance disorder (Chronic) Gait abnormality (Chronic) UTI symptoms (Acute) Memory impairment (Chronic) Prediabetes (Chronic) Stroke (Chronic) Nonrheumatic mitral (valve) prolapse (Resolved) Hyperlipemia (Chronic) Heart palpitations (Acute) Long-term use of high-risk medication (Chronic) 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) Tendinitis, [...] sleep apnea) (Chronic) Hypothyroidism (Chronic) Pulmonary HTN (Chronic) Cardiomyopathy (Chronic) Adrenal cortex insufficiency (Chronic) Arrhythmia, ventricular (Inactive) CAD (coronary artery disease) (Inactive) Cardiac dysrhythmia, unspecified (Inactive) Orthostatic hypotension (Inactive) Pneumonia (Inactive) Surgical History S/P implantation of automatic cardioverter/defibrillator (AICD) (Resolved) 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) History of bilateral hip replacements (Resolved) History of bilateral knee replacement (Resolved) History of cataract surgery (Resolved) History of hysterectomy (Resolved) AICD (automatic cardioverter/defibrillator) present (Inactive) Heart valve replaced by other means (Inactive) Family History Father CVA (cerebral vascular accident) Mother Cancer bone Sister Cancer bone Diabetes Social History Smoking Status: Never smoker second hand exposure: No alcohol intake: never substance use type: does not use ROS Const Const: Positive for fatigue [...] cane) Cardio Chest Pain: No Palpitations: No Edema: None Muscle aches with walking: None Resp Respiratory: Positive for SOB with activity (going up/downstairs); negative for SOB at rest GI GI: Negative vomiting or vomiting blood/hematemesis : Negative for hematuria Musc Musc: Positive for balance problems (ambulates with a cane) and muscle aches/ myalgia (back pain); negative for muscle weakness or joint pain Skin Skin: Negative non-healing lesions or rash Neuro Neuro: Positive for dizziness (the other day, BP was low systolic in the 80's); negative for weakness, blurry vision, lightheadedness, frequent falls or orthostatic symptoms Ran Hematologic/Lymphatic: Negative for easy bleeding Endo Endo: Positive [...] oral mucosae normal Teeth and gingiva: fair dentition Eyes Eyelids: eyelids normal Conjunctivae: conjunctivae normal Pupils: PERRL EOM: EOM intact bilaterally Neck Neck: normal visual inspection and full ROM Carotids: normal carotid upstroke Chest Chest inspection: normal inspection of the chest, symmetric chest movement and normal respiratory effort Auscultation: Bilateral: Clear to Auscultation Cardio Palpation: normal PMI Rate: regular rate Rhythm: regular rhythm and ectopic beats Heart sounds: S1 normal and S2 normal Murmur: Grade 2/6, soft, holosystolic, apex and axilla GI GI: normal to inspection, soft, no [...] is moderately enlarged. Stable apearing bioprosthetic mitral valve apparatus with 2D echocardiographic images c/w prosthetic valve leaflet thickening and partial restriction with spectral doppler c/w moderate mitral valve stenosis. Moderate (2+) transvalvular insufficiency of the mitral valve. Moderate (2+) tricuspid valve insufficiency. Trivial aortic valve insufficiency. Trivial pulmonic valve insufficiency. Calcified aortic root. Right ventricular systolic pressure estimated to be 41 mmHg. ICD or pacer leads identified within the right atrium ICD or pacer leads identified within the right ventricle. Comment: 2D echocardiographic images demonstrate a small mobile echodensity in [...] appearing bioprosthetic mitral valve apparatus with 2D and 3D echocardiographic images c/w prosthetic valve leaflet thickening and partial restriction of the posterior leaflet with spectral doppler c/w moderate to severe mitral valve stenosis. Moderate (2 ) transvalvular insufficiency of the mitral valve. Mild to moderate (1-2+) tricuspid valve insufficiency. Mild diffuse aortic valve thickening. Mild focal. aortic valve calcification. Bubble contrast study negative for right to left intera.tria.l shunt. Mild atherosclerosis of the descending aorta.. lCD or pacer leads identified within the right atrium lCD or pacer leads identified within the right ventricle. Comment: 2D echocardiographic images demonstrate a. small mobile echodensity in the right atrium appearing associated with an lCD lead appearing c/w a small thrombus, although other etiologies of mobile mass lesiona can.not be completely excluded. Stress test: 09/16/2007 CONCLUSION: 1. Normal physiologic response to adenosine infusion. 2. No symptoms to suggest angina elicited with adenosine infusion. 3. Resting electrocardiogram demonstrating sinus rhythm with, frequent premature ventricular complexes and nonspecific lateral ST T wave changes. 4. Electrocardiogram with adenosine infusion demonstrating sinus rhythm with frequent premature ventricular complexes but no new ST changes to suggest ischemia, 5. Nuclear images demonstrate a subtle decrease in inferior wall activity at rest and with adenosine suggestive of diaphragmatic attenuation or bowel associated artifact. There was a subtle reversible lateral perfusion defect developing with adenosine suspicious for inducible ischexmLa. Cardiac catheterization: 05/29/2011 CONCLUSION 1. Nbfh-oy-mojldwxy global left ventricular systolic dysfunction. Ejection fraction 40 percent. 2. Left main with 10 percent eccentric ostial stenosis/eccentric takeoff. 3. Left anterior descending with 10-20 percent smooth tubular proximal stenosis. 4. Circumflex coronary angiographically normal. 5. Right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 angiographically normal. Pacemaker/ICD: Broomcorn Scraper: [employer] Name: Protecta VR Model #: [id number] Serial #: [id number] Date Implanted: 04/29/2013 Device Characteristics Device: Single Chamber Type: Implantable defibrillator Open heart surgery: 10/09/2009: Mitral valve replacement with a [...] stenosis by SOL 08/11/15 may need replacement Plan She has undergone mitral valve replacement as previously noted. She will continue evaluation care as noted above. Orders Orders: 3. Cardiomyopathy, unspecified type I42.9 Plan She does have a history of what is thought to be a non-CAD related cardiomyopathy. This will be reassessed with an echocardiogram. Depending upon her findings she may be a candidate for additional medical management such as Entresto. Orders Orders: 4. Chronic [...] She will continue to be followed. 6. S/P implantation of automatic cardioverter/defibrillator (AICD) Z95.810 Plan She does have a pacemaker/ICD in place. It has been followed. She states she has had no discharges since her last follow-up visit 7. Hyperlipidemia, unspecified hyperlipidemia type E78.5 Plan Her lipid labs were checked on 06/12/2018 at [facility] in [place], [place]. According to the report received today her cholesterol is 124 with an LDL of 48 and an HDL of 49 and a triglyceride level of 133. Her AST ALT and alkaline phosphatase were within normal range. She will continue medical management and follow-up 8. Long-term use of high-risk medication Z79.899 Plan Based upon her medications she will have future follow-up studies as deemed appropriate Plan Detail Other Orders Orders: Additional Comments The above was discussed with her. She was agreeable to this [...] Up 6 Months (PFM) Coding Level of Care Code Off vis,est,level [...] unspecified Long-term use of high-risk medication Z79.899 06/17/18 1435 <Electronically signed by Gurdeep Huang MD> Date Gurdeep Huang MD Cosigner Signature: Date (if applicable) CC: Leanne Means MD 12 LEAD EKG PERFORMED Observed: 06/17/2018 Status: F Source: [place] BY LUKASZ 2:00 PM [facility] REPOSITORY [facility] [address] [place] [id number] 12 Lead EKG performed by LUKASZ 06/17/18 1359 MR#: [id number] Acct: [id number] Name: IRIS ARRIAGA Rep #: [id number] : 1940 78 From: Gurdeep Huang MD Attending Dr: Gurdeep Huang MD Status: DEP [facility] Ordering Dr: Gurdeep Huang MD Date: 06/17/18 Location: [facility] Sex: F C Admitted: BMS/12 Lead EKG performed by [facility] ECG Report Interpretation Sinus Rhythm -First degree A-V block - multiform ectopic ventricular beats Poor R wave progressionVoltage criteria for Left ventricular hypertrophy Nonspecific ST depression ABNORMAL Electronically signed on 06/17/2018 at 17:25 by Gurdeep Huang Software Version [id number] 06/17/18 1726 Date Gurdeep Huang MD CC: Leanne Means MD Date Dictated: 06/17/18 1359 Date Transcribed: 06/17/18 1359 5Th Grade Teacher: PM Signed [facility] PANEL Collected: 06/12/2018 Status: F Source: [place] 9:35 AM [facility] REPOSITORY TYPE CODE TESTS RESULT OUT OF RANGE REFERENCE UNITS LAB 51558602(L 7-45 Int._Unit/L OINC) Normal ALT 14 LAB 90843243(L 9-39 Int._Unit/L OINC) Normal AST 22 LAB 52139261(L 3.4-5.0 G/DL OINC) Normal Albumin Lvl 4.2 LAB 34531720(L 2.0-4.0 G/DL OINC) Normal Globulin 3.0 LAB 00255891(L 1.1-1.9 ratio OINC) Normal A/G Ratio 1.3 LAB 03154751(L 33-136 Int._Unit/L OINC) Normal Alk Phos 70 LAB 25008392(L .00-.30 mg/dL OINC) Normal Bili Direct .10 LAB 18433991(L OINC) Normal Bili Indirect 0.5 Result Comment: No established ranges available for the Indirect Biliruben. LAB 20212570(LOINC) 0.0-1.2 mg/dL Normal Bili Total 0.6 LAB 16818653(LOINC) 6.4-8.2 gm/dL Normal Total Protein 7.5 Performed By: #### [id number] #### [facility] [address] [place] [address] LIPID PROFILE Collected: 06/12/2018 Status: F Source: [place] 9:[address] [facility] REPOSITORY TYPE CODE TESTS RESULT OUT OF RANGE REFERENCE UNITS LAB 51143131(LO 120-200 mg/dL INC) Normal Chol 124 Result Comment: TOTAL CHOLEESTEROL: <200 NORMAL 200 - 239 BORDERLINE HIGH >240 HIGH LAB 99115471(LOINC) mg/dL Normal HDL 49 LAB 63953479(LOINC) 0-130 mg/dL Normal LDL 48 Result Comment: <100 OPTIMAL 100-129 NEAR / ABOVE OPTIMAL 130-159 BORDERLINE HIGH 160-189 HIGH >190 VERY HIGH CALC LDL NOT VALID WHEN TRIGLYCERIDE IS >400 MG/DL LAB 28941090(LOINC) 0-150 mg/dL Normal Trig 133 Result Comment: <150 NORMAL 150-199 BORDERLINE HIGH 200-499 HIGH >500 VERY HIGH LAB 94130850(LOINC) Normal VLDL 27 Performed By: #### [id number] #### [facility] [address] [place] [address] BMP Collected: 06/12/2018 Status: C Source: [place] 9:31 AM [facility] REPOSITORY TYPE CODE TESTS RESULT OUT OF RANGE REFERENCE UNITS LAB 25240597(L 70-99 mg/dL OINC) High Glucose Lvl 122 LAB 82978935(L 6-23 mg/dL OINC) High BUN 56 LAB 3594092(LO 0.6-1.3 mg/dL INC) High Creatinine 1.6 LAB 95783239(L 5.4-30.0 ratio OINC) High BUN/Creat Ratio 35.0 LAB 94261889(L 8.6-10.3 mg/dL OINC) Calcium Normal Lvl 9.5 LAB 83094679(L 136-145 mEq/L OINC) Sodium Normal Lvl 137 LAB 22716773(L 3.5-5.3 mEq/L OINC) Low Potassium Lvl 3.4 LAB 37853918(L 98-107 mEq/L OINC) Low Chloride 94 LAB 34483963(L 21.0-32.0 mEq/L OINC) CO2 Normal 32.0 LAB 05665457(L 10-20 mEq/L OINC) AGAP Normal 14 Performed By: #### [id number] #### [facility] [address] [place] [address] EGFR Collected: 06/12/2018 Status: F Source: [place] 9:[address] [facility] REPOSITORY Order Comment: Order added by Discern Expert. TYPE CODE TESTS RESULT OUT OF RANGE REFERENCE UNITS LAB 58051391(LO mL/min/1.73 INC) m2 Normal eGFR 30 LAB 70712085(LO mL/min/1.73 INC) m2 Normal eGFR AA 37 Performed By: #### [id number] #### [facility] [address] [place] [address] MAGNESIUM Collected: 06/12/2018 Status: F Source: [place] 9:31 AM [facility] REPOSITORY TYPE CODE TESTS RESULT OUT OF REFERENCE UNITS RANGE LAB 10118307(L 1.6-2.4 Int._Unit/L OINC) High Magnesium 2.6 Performed By: #### [id number] #### [facility] [address] [place] [address] PACEMAKER CHECK Observed: 05/01/2018 Status: F Source: [place] 4:34 PM [facility] REPOSITORY [facility] [address] [place] [address]. [address] [place] [address] Pacemaker Check Date of Service: 05/01/18 1428 MR#: [id number] Acct: [id number] Name: IRIS ARRIAGA Rep #: [id number] : 1940 From: Kim Pickard Age/Sex: 78/F Location: [facility] Status: Signed Billing Codes ICD Device Billing: ICD Dev Prog Eval, Single 05/01/18 1430 <Electronically signed by Kim Pickard > Date Kim Pickard 05/01/18 1634<Electronically signed by Gurdeep Huang MD> Cosigner Signature: Date (if applicable) Gurdeep Huang MD CC: BMP Collected: 04/29/2018 Status: F Source: [place] 10:46 AM [facility] REPOSITORY TYPE CODE TESTS RESULT OUT OF RANGE REFERENCE UNITS LAB 95797578(L 70-99 mg/dL OINC) Glucose Normal Lvl 80 LAB 56693475(L 7-18 mg/dL OINC) High BUN 41 LAB 3278720(LO 0.6-1.3 mg/dL INC) High Creatinine 1.6 LAB 59160314(L 5.4-30.0 ratio OINC) Normal BUN/Creat Ratio 25.6 LAB 12448188(L 8.4-10.2 mg/dL OINC) Calcium Normal Lvl 9.5 LAB 31269374(L 136-145 mEq/L OINC) Sodium Normal Lvl 138 LAB 69895753(L 3.5-5.1 mEq/L OINC) Normal Potassium Lvl 3.9 LAB 38657143(L 98-107 mEq/L OINC) Low Chloride 95 LAB 96531362(L 24.0-30.0 mEq/L OINC) High CO2 31.1 Performed By: #### [id number] #### [facility] [address] [place] [address] EGFR Collected: 04/29/2018 Status: F Source: [place] 10:46 AM [facility] REPOSITORY Order Comment: Order added by Discern Expert. TYPE CODE TESTS RESULT OUT OF RANGE REFERENCE UNITS LAB 00559025(LO mL/min/1.73 INC) m2 Normal eGFR 31 LAB 55159250(LO mL/min/1.73 INC) m2 Normal eGFR AA 38 Performed By: #### [id number] #### [facility] [address] [place] [id number] PULMONARY VISIT REPORT Observed: 03/18/2018 Status: F Source: [place] 8:47 AM [facility] REPOSITORY [facility] [address] [place] [address] OFFICE VISIT Date of Service: 03/18/18 MR#: [id number] Acct: [id number] Name: IRIS ARRIAGA Rep #: [id number] : 1940 Provider: Glenna Anderson Age/Sex: 78/F Location: [facility] Status: Signed Assessment AND Plan Problems 1. URMILA (obstructive sleep apnea) G47.33 Plan Despite the fact that the patient is using and benefiting from her Pap therapy she continues to have high leaks. Sending her to Pap education to try to troubleshoot any problems that could be changed. Follow-up with Dr. Albarado in 3 months. The patient and her have been encouraged to contact the office if she has any new or worsening symptoms in the meantime, or if Pap education has not been helpful and she continues to suffer from high leaks and dry mouth. Orders Orders: Plan Detail Follow Up 3 Months (DMB) HPI 1 M FU: Chief Complaint: Pap mask leaks HPI Comments Details: This is a 78 year old F, here to follow up for sleep apnea. Current use of pressure support therapy is on average of 7- 1/2 hours per night with current settings of 12 cmH2O. IRIS denies any daytime somnolence, nocturia, snoring through the mask, or morning headaches , but is experiencing dry mouth in the morning, and difficulty with mask leaks. IRIS reports feeling rested in the morning and is benefitting from current [...] 11 in 03/18/18 Weight: 180 lb Intake Visit Reasons: 1 M FU Chief Complaint: Shortness of breath on exertion DME Vendor: [employer] Accompanied by: Allergies levofloxacin [Levofloxacin] Allergy (Verified 10/15/17 13:57) Hives warfarin [From Coumadin] Allergy (Verified 10/15/17 13:57) Other torsemide [From Demadex] Adverse Reaction (Intermediate, Verified 10/15/17 13:57) Rash Medications Amitriptyline HCl 50 mg PO QHS PRN 07/22/15 [History Confirmed 10/15/17] Levothyroxine [Synthroid] 88 mcg PO DAILY #0 07/26/15 [Rx Confirmed 10/15/17] Aspirin [Aspirin, Baby] 81 mg PO DAILY@0800 08/09/15 [History Confirmed 10/15/17] Multivitamins,Therapeutic [Multivitamin] 1 tab PO DAILY 11/16/15 [...] Confirmed 10/15/17] metolazone 5 mg tablet 5 mg PO [...] 10/15/17] potassium chloride ER 20 mEq tablet,extended release 20 meq PO QDAY 12/18/17 [History] fluticasone 50 mcg/actuation nasal spray,suspension 2 spray INTRANASAL QDAY 01/20/18 [History] [facility] Medical History Thrombophlebitis of left internal iliac [...] Heart valve replaced by other means (Resolved) Long-term use of high-risk medication (Chronic) 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) Tendinitis, [...] (automatic cardioverter/defibrillator) present (Chronic) Arrhythmia, ventricular (Chronic) Hypothyroidism (Chronic) 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) Pulmonary HTN (Chronic) Cardiomyopathy (Chronic) Orthostatic hypotension (Acute) Adrenal cortex insufficiency (Chronic) Pneumonia (Acute) Surgical History History of bilateral knee replacement (Resolved) History of hysterectomy (Resolved) History of bilateral hip replacements (Resolved) S/P implantation of automatic cardioverter/defibrillator (AICD) (Resolved) Family History Father CVA (cerebral vascular accident) Mother Cancer bone [...] in morning; negative hard of hearing, hoarseness, change in vision, itchy eyes, eye pain, swallowing Difficulty, ear pain, nose bleed, headache(s), mouth pain, nasal congestion, nasal discharge, post nasal drip, sinus pain, sinus pressure, sore throat or other Cardio Cardiovascular: Negative chest pain, chest pain at rest, chest pain with activity, irregular heart rhythm, edema, shortness of breath when lying down, palpitations, murmur or other Resp Respiratory: Positive as per HPI and cough cough: [...] pain or other Skin/Breast Skin/Breast: Negative dry skin, itching, rash, unusual bruising, breast lump or other Neuro Neurological: Negative restless legs, confusion, weakness or other Psych Psychocological: Negative abnormal sleep pattern, anxiety, thoughts of hurting self/others, hopelessness or other Lymph Lymphatic: Negative easy bleeding, easy bruising, swollen lymph nodes or other Exam Const Constitutional: Positive conversant, cooperative, in no acute respiratory distress, healthy appearing, well developed, well nourished and good hygiene Head Head: Positive normocephalic and atraumatic; negative cyanosis of lips/distal nose Eyes Eye: Positive clear conjunctiva; negative nystagmus or scleral abnormality [...] and normal respiratory effort; negative diminished, wheezes, rhonchi, rales, dullness to percussion or wheeze present on forced exhalation Cardio Cardiac: Positive regular rate, regular rhythm, S1 normal and S2 normal; negative murmur GI GI: Positive normal to inspection and normal bowel sounds; negative distended Genitourinary: Positive deferred Musc Musculoskeletal: Positive steady gait and ROM normal; negative kyphosis or scoliosis Skin Pulmonary Skin Exam: Positive intact; negative rash, lesion, ulcers or erythema Pulses Pulse: Yes pulses normal x4 extremities Extremities Extremities: Yes capillary refill normal, No clubbing, No cyanosis, No edema Neuro Neurologic: Yes conversant, Yes no focal neuro deficits, Yes normal concentration, Yes understands questions, Yes cooperative, Yes normal cognition, Yes normal coordination Lymph Lymphatic: No lymphadenopathy, No tenderness, No cervical adenopathy, No axillary adenopathy Psych Appearance: Positive grossly normal, eye contact and well kempt Mental Status: Positive mental status grossly normal Mood: Positive congruent mood Affect: Positive normal affect Coding Level of Care Code Off vis,est,level 3 Diagnoses URMILA (obstructive sleep apnea) G47.33 03/18/18 0847 <Electronically signed by Glenna CORADO> Date Glenna CORADO Cosigner Signature: Date (if applicable) CC: Leanne Means MD BMP Collected: 02/20/2018 Status: F Source: [facility] 10:37 AM [facility] REPOSITORY TYPE CODE TESTS RESULT OUT OF RANGE REFERENCE UNITS LAB 89922761(L 70-99 mg/dL OINC) High Glucose Lvl 139 LAB 59328060(L 8.4-10.2 mg/dL OINC) Calcium Normal Lvl 9.4 LAB 76908715(L 136-145 mEq/L OINC) Sodium Normal Lvl 136 LAB 05358266(L 3.5-5.1 mEq/L OINC) Low Potassium Lvl 3.4 LAB 19440619(L 98-107 mEq/L OINC) Low Chloride 94 LAB 01032192(L 24.0-30.0 mEq/L OINC) High CO2 30.1 LAB 25532951(L 7-18 mg/dL OINC) High BUN 45 LAB 3015677(LO 0.6-1.3 mg/dL INC) High Creatinine 1.6 LAB 86801346(L 5.4-30.0 ratio OINC) Normal BUN/Creat Ratio 28.1 Performed By: #### [id number] #### [facility] [employer] [place] [address] EGFR Collected: 02/20/2018 Status: F Source: [place] 10:37 AM [facility] REPOSITORY Order Comment: Order added by Discern Expert. TYPE CODE TESTS RESULT OUT OF RANGE REFERENCE UNITS LAB 67929773(LO mL/min/1.73 INC) m2 Normal eGFR 31 LAB 33863168(LO mL/min/1.73 INC) m2 Normal eGFR AA 38 Performed By: #### [id number] #### [facility] [address] [place] [address] MAGNESIUM Collected: 02/20/2018 Status: F Source: [place] 10:37 AM [facility] REPOSITORY TYPE CODE TESTS RESULT OUT OF RANGE REFERENCE UNITS LAB 71865544(L 1.7-2.8 mg/dL OINC) Normal Magnesium 2.8 Performed By: #### [id number] #### [facility] [address] [place] [id number] PACEMAKER CHECK Observed: 02/02/2018 Status: F Source: [place] 8:00 AM [facility] REPOSITORY [facility] [address] [place] [address] Pacemaker Check Date of Service: 01/28/18 1424 MR#: [id number] Acct: [id number] Name: IRIS ARRIAGA Rep #: [id number] : 1940 From: Kim Raber Age/Sex: 78/F Location: [facility] Status: Signed Comments Summary Comments: Single Chamber ICD Report: See attached scanned sas programmer analyst Report. Interrogation shows no VT/VF episodes since last check 09/25/17. Left pectoral pocket/incision w/o s/s of infection or erosion. Pt offers no cardiac complaints. Presenting rhythm shows NSR @ 98 bpm. DRY CLEANING TEACHER=<0.1%. Lead impedance, sensing and pace/sense threshold remain stable. No parameter changes made. Counters cleared. Next f/u appt scheduled for in 3 mos. Device Device Date Interviewed: 01/28/18 Follow-up Location: in office Interview Reason: routine follow up Broomcorn Scraper: Medtronic Name: Protecta VR Model: [id number] Serial #: [id number] Implant Date: 04/29/13 Year(s): 4 Implant Physician: Dr. Jose Murphy Patient Characteristics Atrial Indication: Paroxysmal atrial fibrillation Ventricular Indication: Nonsustained VT Patient Substrate: Nonischemic cardiomyopathy By: Echo Implant DFT: [id number] Underlying rhythm: Sinus rhythm Pacemaker Dependent: No Device Characteristics Device: Single Chamber Type: Implantable defibrillator Remote Follow-Up: No Device Physical Exam Yes Incision well healed Leads Lead #1 Broomcorn Scraper Lead 1: Medtronic Model Lead 1: 5076 Serial# Lead 1: [id number] Date Implanted Lead 1: 09/03/04 Position Lead 1: RV Lead #2 Broomcorn Scraper Lead 2: Medtronic Model Lead 2: 6943 Serial# Lead 2: [id number] Date Implanted Lead 2: 11/18/00 Position Lead 2: RV Diagnostics Pacing % RV Pacin.1 Arrhythmias VF Episodes: 0 Fast VT Episodes: 0 Slow VT Episodes: 0 Non-Sust Episodes: 0 Measurements Battery Voltage (V): 3.08 Charge Time (Sec): 10.2 EMILIE Voltage: 2.63 RV Measurements Signal Amplitude (mV): 9.3 Impedance (Ohms): 437 Tachy Settings Tachyarrhythmia Detection Ventricular Fibrillation Detect [...] AND Plan Problems 1. S/P implantation of automatic cardioverter/defibrillator (AICD) Z95.810 2. A-fib I48.91 3. Cardiac dysrhythmia, unspecified I49.9 4. Chronic systolic congestive heart failure I50.22 5. Heart palpitations R00.2 6. 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 Syncope R55 02/01/18 1335 <Electronically signed by Kim Pickard > Date Kim Pickard 02/02/18 0800<Electronically signed by Gurdeep Huang MD> Cosigner Signature: Date (if applicable) Gurdeep Huang MD CC: BMP Collected: 12/29/2017 Status: F Source: [facility] 9:[address] [facility] REPOSITORY TYPE CODE TESTS RESULT OUT OF RANGE REFERENCE UNITS LAB 37000768(L 70-99 mg/dL OINC) High Glucose Lvl 126 LAB 27332416(L 8.4-10.2 mg/dL OINC) Calcium Normal Lvl 9.4 LAB 62551256(L 136-145 mEq/L OINC) Sodium Normal Lvl 137 LAB 53373824(L 3.5-5.1 mEq/L OINC) Normal Potassium Lvl 3.9 LAB 62121492(L 98-107 mEq/L OINC) Low Chloride 97 LAB 62465179(L 24.0-30.0 mEq/L OINC) CO2 Normal 28.9 LAB 59173818(L 7-18 mg/dL OINC) High BUN 25 LAB 6814757(LO 0.6-1.3 mg/dL INC) Normal Creatinine 1.3 LAB 69547802(L 5.4-30.0 ratio OINC) Normal BUN/Creat Ratio 19.2 Performed By: #### [id number] #### [facility] [address] [address] EGFR Collected: 12/29/2017 Status: F Source: [place] 9:53 AM [facility] REPOSITORY Order Comment: Order added by Discern Expert. TYPE CODE TESTS RESULT OUT OF RANGE REFERENCE UNITS LAB 74004182(LO mL/min/1.73 INC) m2 Normal eGFR 40 LAB 41473668(LO mL/min/1.73 INC) m2 Normal eGFR AA 48 Performed By: #### [id number] #### [facility] [address] [id number] CORTISOL LVL Collected: 12/12/2017 Status: F Source: [place] 8:01 AM [facility] REPOSITORY TYPE CODE TESTS RESULT OUT OF RANGE REFERENCE UNITS LAB 16459212(L 6.7-22.6 microgram/d OINC) L Normal Cortisol Lvl 15.7 Performed By: #### [id number] #### [facility] [address] [id number] BMP Collected: 12/12/2017 Status: C Source: [facility] [place] 8:[address] [facility] REPOSITORY TYPE CODE TESTS RESULT OUT OF RANGE REFERENCE UNITS LAB 68004243(L 70-99 mg/dL OINC) High Glucose Lvl 106 LAB 48036063(L 7-18 mg/dL OINC) High BUN 63 LAB 9539175(LO 0.6-1.3 mg/dL INC) High Creatinine 1.6 LAB 40739413(L 5.4-30.0 ratio OINC) High BUN/Creat Ratio 39.4 LAB 99811320(L 8.4-10.2 mg/dL OINC) Normal Calcium Lvl 9.5 LAB 74797401(L 136-145 mEq/L OINC) Low Sodium Lvl 135 LAB 85800924(L 3.5-5.1 mEq/L OINC) Abnormal Potassium Lvl 2.7 Alert Result Comment: Critical Result K: Called to: VOICEMAIL LEFT at: 13:06:45 by:JOSE M Read back by:VOICEMAIL LEFT Left voicemail @ 12:30 and called 4x. No answer. Called before office hours closed. Critical Result K: Called to: VOICEMAIL LEFT at: 13:06:45 by:SHSDRISABELLA Read back by:VOICEMAIL LEFT CALLED/RB TO VIRAJ BALBUENA @ DR GLEZ'S OFFICE LAB 96265975(LOINC) 98-107 mEq/L Low Chloride 87 LAB 39829506(LOINC) 24.0-30.0 mEq/L High CO2 35.8 Performed By: #### [id number] #### [facility] [address] [place] [address] EGFR Collected: 12/12/2017 Status: F Source: [place] 8:01 AM [facility] REPOSITORY Order Comment: Order added by Discern Expert. TYPE CODE TESTS RESULT OUT OF RANGE REFERENCE UNITS LAB 45541476(LO mL/min/1.73 INC) m2 Normal eGFR 31 LAB 19327850(LO mL/min/1.73 INC) m2 Normal eGFR AA 38 Performed By: #### [id number] #### [facility] [address] [place] [address] VENOUS DUPLEX LOWER Observed: 10/27/2017 Status: F Source: [place] EXTREMITY 4:14 PM [facility] REPOSITORY [facility] Cardiovascular Services [address] [place] [address] Venous Duplex US, Unilateral 10/27/17 0952 MR#: [id number] Acct: [id number] Name: IRIS ARRIAGA Rep #: [id number] : 1940 77 From: Alejandro Armendariz MD Attending Dr: Leanne Means MD Status: REG CLI Ordering Dr: Leanne Means MD Date: 10/27/17 Location: [facility] Sex: F [...] faxed competent and demonstrates normal to Dr. Means. augmentation. T/P Trunk is compressible. PTV is compressible. LT PerV is compressible. Interpretation Summary Chronic deep venous thrombosis left common femoral and femoral veins. Harvested left great saphenous vein. Normal flow patterns right common femoral vein. Ordering Physician: Leanne Means Referring Physician: Leanne Means Performed By: Sheridan Acuna RVT 10/27/17 1614 Date Alejandro Armendariz MD CC: Leanne Means MD Date Dictated: 10/27/17 0952 Date Transcribed: 10/27/171613 5Th Grade Teacher: Signed [facility] Collected: 10/27/2017 Status: F Source: [facility] 10:35 AM [facility] REPOSITORY TYPE CODE TESTS RESULT OUT OF RANGE REFERENCE UNITS LAB L501.0100 74-106 mg/dL Normal GLU 91 Result Comment: Please note revised GLUCOSE reference range effective 2017. LAB L501.1000 7-18 mg/dL High BUN 43 LAB L501.1100 0.55-1.02 mg/dL High CREAT,SERUM 1.52 Result Comment: The validity of the calculated GFR AND GFRAA in patients over 70 years has not been determined. Clinical correlation is essential. LAB L501.1110 >60 mL/min Low EST GFR 35 Result Comment: Non- GFR Calc LAB L501.1115 >60 mL/min Low EST GFR - AA 43 Result Comment: GFR Calc LAB L501.1300 10-20 RATIO High BUN/CRE 28.3 LAB L501.1500 6.4-8.2 g/dL High T PROT 8.5 LAB L501.1800 3.2-5.0 g/dL Normal ALB 4.1 LAB L501.1950 2.2-4.2 g/dL High GLOB 4.4 LAB L501.2000 0.9-2.4 RATIO Normal A/G 0.9 LAB L501.2200 8.5-10.1 mg/dL CA Normal 9.6 LAB L501.4100 15-37 U/L Normal AST 28 LAB L501.4305 45-117 U/L Normal ALK P 79 LAB L501.4405 13-56 U/L Normal ALT 23 Result Comment: Please note revised ALT reference range effective 2017. LAB L501.4600 0.20-1.00 mg/dL Normal T BILI 0.70 LAB L501.5300 136-145 mmol/L Normal NA 136 LAB L501.5600 3.5-5.1 mmol/L Normal K 3.6 LAB L501.5900 98-107 mmol/L Low CL 95 LAB L501.6100 21.0-32.0 mmol/L High CO2 33.0 LAB L501.6200 5-15 Normal GAP 8 Performed By: #### L500.4050, L501.1400, L501.2300 #### [facility] [address] [facility] [facility] [place], [address] URIC ACID Collected: 10/27/2017 Status: F Source: [place] 10:35 AM [facility] REPOSITORY TYPE CODE TESTS RESULT OUT OF RANGE REFERENCE UNITS LAB L501.1400 2.6-6.0 mg/dL High URIC 10.9 Result Comment: The drugs N-Acetylcysteine and Metamizole may falsely depress this assay. Performed By: #### L500.4050, L501.1400, L501.2300 #### [facility] [address] [facility] [facility] [place], [address] PHOSPHORUS Collected: 10/27/2017 Status: F Source: [place] 10:35 AM [facility] REPOSITORY TYPE CODE TESTS RESULT OUT OF RANGE REFERENCE UNITS LAB L501.2300 2.5-4.9 mg/dL Normal PHOS 4.0 Performed By: #### L500.4050, L501.1400, L501.2300 #### [facility] [address] [place], [address] PULMONARY VISIT REPORT Observed: 10/15/2017 Status: F Source: [place] 6:36 PM [facility] REPOSITORY [facility] [address] [place] [address] OFFICE VISIT Date of Service: 10/15/17 MR#: [id number] Acct: [id number] Name: IRIS ARRIAGA Rep #: [id number] : 1940 Provider: Glenna Anderson Age/Sex: 77/F Location: [facility] Status: Signed Assessment AND Plan 1. URMILA (obstructive sleep apnea) G47.33 Status Chronic Plan Reduce pressure support to 12 cm of water. Follow-up with Dr. Albarado in 3 months to continue to watch the AHI as well as continued symptom resolution. Anticipate less difficulties with mask air leaks. 2. IRENE (dyspnea on exertion) R06.09 Status Chronic Plan Stable. No additional testing at this time. Follow-up with Dr. Albarado in 3 months. Plan Detail Follow Up 3 Months (DMB) [facility] Hospital FU: Chief Complaint: Shortness of breath on exertion [facility] Comments Details: This is a 77 year old F, currently under the care of Dr. Means of [facility], here to follow up for sleep apnea. She is ambulatory, using a cane, currently on room air and she is accompanied by her . Current use of pressure support therapy is on average of 7 hours per night with current settings of 16 cmH2O. IRIS denies any daytime somnolence, dry mouth in the morning, nocturia, snoring through the mask, or morning headaches, but is experiencing difficulty with mask leaks. IRIS reports feeling rested in the morning and is benefitting from current therapy. Compliance report was reviewed and shows 73% compliance, current AHI is 2.7 events per hour, leaks do appear to be occasional issue. He has not been seen in the ED urgent care for [...] body aches. She has not utilized any [id number] medications for her shortness of breath. Intake Vital Signs10/15/17 Height 5 ft 11 in 10/15/17 Weight: 172 lb Intake Visit Reasons: Hospital FU DME Vendor: [employer] Allergies levofloxacin [Levofloxacin] Allergy (Verified 10/15/17 13:57) Hives warfarin [From Coumadin] Allergy (Verified 10/15/17 13:57) Other torsemide [From Demadex] Adverse Reaction (Intermediate, Verified 10/15/17 13:57) Rash Medications Amitriptyline HCl 50 mg PO QHS PRN 07/22/15 [History Confirmed 10/15/17] Levothyroxine [Synthroid] 88 mcg PO DAILY #0 07/26/15 [Rx Confirmed 10/15/17] Aspirin [Aspirin, Baby] 81 mg PO DAILY@0800 08/09/15 [History Confirmed 10/15/17] Multivitamins,Therapeutic [Multivitamin] 1 tab PO DAILY 11/16/15 [...] Confirmed 10/15/17] metolazone 5 mg tablet 5 mg PO [...] PRN 10/15/17 [History Confirmed 10/15/17] [facility] Medical History Thrombophlebitis of left internal iliac [...] Heart valve replaced by other means (Resolved) Long-term use of high-risk medication (Chronic) 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) Tendinitis, [...] (automatic cardioverter/defibrillator) present (Chronic) Arrhythmia, ventricular (Chronic) Hypothyroidism (Chronic) 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) Pulmonary HTN (Chronic) Cardiomyopathy (Chronic) Orthostatic hypotension (Acute) Adrenal cortex insufficiency (Chronic) Pneumonia (Acute) Surgical History History of bilateral knee replacement (Resolved) History of hysterectomy (Resolved) History of bilateral hip replacements (Resolved) S/P implantation of automatic cardioverter/defibrillator (AICD) (Resolved) Family History Father CVA (cerebral vascular accident) Mother Cancer bone [...] hoarseness, dry mouth in morning, change in vision, itchy eyes, eye pain, swallowing Difficulty, ear pain, nose bleed, headache(s), mouth pain, nasal congestion, nasal discharge, post nasal drip, sinus pain, sinus pressure, sore throat or other Cardio Cardiovascular: Negative chest pain, chest pain at rest, chest pain with activity, irregular heart rhythm, edema, shortness of breath when lying down, palpitations, murmur or other Resp Respiratory: Positive as per HPI and shortness of breath shortness of breath: Positive with activity; negative pain with cough, wheezing, chest congestion, cough, chest tightness, pain on inspiration, inhalers, increase use of rescue inhalers, snoring, apnea or other Gastro Gastrointestional: Negative bloody stools, change in appetite, difficulty swallowing, reflux, hematemesis, melena stool, loose stool, constipation or other Genitourinary: Negative blood in urine, nocturia, pain with urination or other Musc Musculoskeletal: Negative body pain, back pain, neck pain or other Skin/Breast Skin/Breast: Negative dry skin, itching, rash, unusual bruising, breast lump or other Neuro Neurological: Negative restless legs, confusion, weakness or other Psych Psychocological: Negative abnormal sleep pattern, anxiety, thoughts of hurting self/others, hopelessness or other Lymph Lymphatic: Negative easy bleeding, easy bruising, swollen lymph nodes or other Exam Const Constitutional: Positive conversant, cooperative, in no acute respiratory distress, well developed, well nourished and good hygiene Head Head: Positive normocephalic and atraumatic; negative cyanosis of lips/distal nose Eyes Eye: Positive clear conjunctiva and nystagmus; negative scleral abnormality Ears Ear: Positive hearing normal and external ears normal; negative hard of hearing Nose Nose: Positive external nose normal and no nasal discharge; negative epistaxis Mouth Mouth: Positive oral mucosae normal, no lesions and crowded posterior oropharynx; negative post nasal drip, malodorous breath or oral thrush present Mallampati Score: III: Mallampati Score Neck Neck: Positive normal visual inspection, full ROM and trachea midline; negative lymphadenopathy, JVD or tender Chest Wall Chest: Positive normal inspection of the chest and symmetric chest movement; negative increased A/P diameter Resp lung sounds: Positive clear to auscultation, good air exchange, normal expiratory time and normal respiratory effort; negative diminished, wheezes, rhonchi, rales, dullness to percussion or wheeze present on forced exhalation Cardio Cardiac: Positive regular rate, regular rhythm, S1 normal and S2 normal; negative murmur GI GI: Positive normal to inspection and normal bowel sounds; negative distended Genitourinary: Positive deferred [facility] Musculoskeletal: Positive steady gait, ROM normal, kyphosis and using an assistive device for ambulation; negative scoliosis Skin Pulmonary Skin Exam: Positive intact; negative rash, lesion, ulcers, erythema, scaly or dermal atrophy Pulses Pulse: Yes pulses normal x4 extremities Extremities Extremities: Yes capillary refill normal, No clubbing, No cyanosis, No edema, No stasis dermatitis Neuro Neurologic: Yes conversant, Yes no focal neuro deficits, Yes cooperative, Yes normal cognition, Yes normal coordination, Yes normal concentration, Yes understands questions Lymph Lymphatic: No lymphadenopathy, No tenderness, No cervical adenopathy, No axillary adenopathy Psych Appearance: Positive grossly normal, eye contact and well kempt Mental Status: Positive mental status grossly normal Mood: Positive congruent mood Affect: Positive normal affect Coding Level of Care Code Off vis,est,level 3 Diagnoses URMILA (obstructive sleep apnea) G47.33 IRENE (dyspnea on exertion) R06.09 10/15/17 1836 <Electronically signed by Glenna HICKSC> Date Glenna CORADO Cosigner Signature: Date (if applicable) CC: Leanne Means MD SCREENING MAMM (CAD), Observed: 10/14/2017 Status: F Source: [facility] 9:19 AM [facility] REPOSITORY [facility] Imaging Services [address] [place] [id number] SCREENING MAMM (CAD), [facility] MR#: [id number] Acct: [id number] Name: IRIS ARRIAGA Rep #: [id number] : 1940 F 77 From: Ed Fink MD PCP: Leanne Means MD Status: REG CLI Study: SCREENING MAMM (CAD), BIL Date of Exam: 10/14/17 Exam# [id number] Ordering Dr: Leanne Means MD MAMMOGRAPHY - BILATERAL SCREENING REASON FOR [...] region. No other significant abnormalities are identified. There has been no significant change since the prior study. HPBI/SCREENING MAMM (CAD), BILAT IMPRESSION: Stable bilateral screening mammogram. Yearly follow-up mammogram recommended. (A) ASSESSMENT CATEGORY: BIRADS Category 2: Benign. A letter regarding these results will be sent to the patient by the facility within 30 days. Approximately 10% of breast cancers are not detected by mammography. A normal mammogram should not delay biopsy of a clinically suspicious abnormality. [id number] Electronically Signed: Ed Fink MD at 11:10 EST Tel [phone], Service support , CC: Leanne Means MD 5Th Grade Teacher: Signed OFFICE VISIT REPORT Observed: 10/06/2017 Status: F Source: [place] 12:[address] [place] [address] OFFICE VISIT Date of Service: 09/25/17 MR#: [id number] Acct: [id number] Patient: IRIS ARRIAGA Rep #: [id number] : 1940 Provider: Kim Pickard Age/Sex: 77/F Location[place] [facility] [place] Status: Signed Comments Summary Comments: Single Chamber ICD Evaluation: Interrogation shows no VT/VF episodes since 06/17/17. Left pectoral pocket/incision w/o s/s of infection or erosion. Pt offers no cardiac complaints. Presenting rhythm shows NSR @ 92 bpm. DRY CLEANING TEACHER=<0.1%. Lead impedance, sensing and pace/sense threshold remain stable. No parameter changes made. Counters cleared. Next f/u appt scheduled for in 3 mos. Device Device Date Interviewed: 09/25/17 Follow-up Location: in office Interview Reason: routine follow up Broomcorn Scraper: Medtronic Name: Winter VR Model: M206RFR Serial #: [id number] Implant Date: 04/29/13 Year(s): 4 Implant Physician: Dr. Jose Murphy Patient Characteristics Atrial Indication: Paroxysmal atrial fibrillation Ventricular Indication: Nonsustained VT Patient Substrate: Nonischemic cardiomyopathy (dilated) Ejection fraction %: 20 to 24 (12/25/2016) By: Echo Implant DFT: [id number] Underlying rhythm: Sinus rhythm Pacemaker Dependent: No Device Characteristics Device: Single Chamber Type: Implantable defibrillator Remote Follow-Up: No Device Physical Exam Yes Incision well healed Leads Lead #1 Broomcorn Scraper Lead 1: Medtronic Model Lead 1: 5076 Serial# Lead 1: [id number] Date Implanted Lead 1: 09/03/04 Position Lead 1: RV Additional Details: pace/sense lead Lead #2 Broomcorn Scraper Lead 2: Medtronic Model Lead 2: 6943 Serial# Lead 2: [id number] Date Implanted Lead 2: 11/18/00 Position Lead [...] Kim Pickard 10/06/17 1216<Electronically signed by Gurdeep Huang MD> Cosigner Signature: Date (if applicable) Gurdeep Huang MD CC: CARDIOLOGY VISIT Observed: 09/11/2017 Status: F Source: [place] REPORT 5:16 PM [facility] REPOSITORY [facility] [address] [place] [address] OFFICE VISIT Date of Service: 09/11/17 MR#: [id number] Acct: [id number] Name: IRIS ARRIAGA Rep #: [id number] : 1940 Provider: Gurdeep Huang MD Age/Sex: 77/F Location: [facility] [place] Status: Signed HPI 6 M FU: Details: IRIS ARRIAGA, is a 77 F who presents to the office today for for outpatient cardiovascular follow-up of her history of underlying mitral valve disorder status post mitral valve replacement-bioprosthetic, non-CAD related cardiomyopathy, chronic systolic CHF, paroxysmal atrial and ventricular tachycardia dysrhythmias, status post ICD placement, CAD (minimal to mild), and hyperlipidemia. Since her last visit she states her main concern is that she was diagnosed, in July of this year, with DVT. She states that she was evaluated for such at [facility]. During this time she does not believe she had any acute cardiovascular issues or concerns. She states overall she has had no new chest discomfort. She has had no acute change in her respiratory status with acute orthopnea or PND. She has remained without any obvious significant edema of the lower extremities. There has been no near syncope, syncope, or ICD discharge. She had her evaluation with her PCP earlier today. She had an ECG performed at that time. It appeared she was in sinus rhythm/sinus arrhythmia with a leftward axis as well as a nonspecific IVCD. As you may recall her original open heart surgery performed procedure was performed at [facility]. 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 She continues to be followed at [facility] at this time by the structural heart disease team for consideration for possible future percutaneous mitral valve intervention. Intake Vital Signs09/11/17 Height 5 ft 11 in 09/11/17 Weight: 177 lb 09/11/17 Body Mass Index (BMI) 24.7 09/11/17 Blood Pressure 92/56 Intake Visit Reasons: 6 M FU Allergies levofloxacin [Levofloxacin] Allergy (Verified 09/11/17 13:43) Hives warfarin [From Coumadin] Allergy (Verified 09/11/17 13:43) Other torsemide [From Demadex] Adverse Reaction (Intermediate, Verified 09/11/17 13:43) Rash Medications Amitriptyline HCl 50 mg PO QHS PRN 07/22/15 [History Confirmed 09/11/17] Levothyroxine [Synthroid] 88 mcg PO DAILY #0 07/26/15 [Rx Confirmed 09/11/17] Aspirin [Aspirin, Baby] 81 mg PO DAILY@0800 08/09/15 [History Confirmed 09/11/17] Multivitamins,Therapeutic [Multivitamin] 1 tab PO DAILY 11/16/15 [History Confirmed 09/11/17] Cholecalciferol (Vitamin D3) [Vitamin D3] 2,000 unit PO DAILY 03/31/17 [History Confirmed 09/11/17] Loratadine [Claritin] 10 mg PO DAILY 03/31/17 [History Confirmed 09/11/17] citalopram 20 mg tablet 20 [...] mg PO BID PRN 09/11/17 [History Confirmed 09/11/17] hydrocortisone 5 mg tablet 5 mg PO QDAY tab 09/11/17 [History Confirmed 09/11/17] metolazone 5 mg tablet 5 mg PO .COMPLEX 09/11/17 [History Confirmed 09/11/17] mometasone-formoterol HFA 100 mcg-5 mcg/actuation aerosol inhaler 2 puff INHALATION BID PRN 09/11/17 [History Confirmed 09/11/17] pravastatin 40 mg tablet 40 mg PO QHS tab 09/11/17 [History Confirmed 09/11/17] [facility] Medical History Thrombophlebitis of left internal iliac [...] Heart valve replaced by other means (Resolved) Long-term use of high-risk medication (Chronic) 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) Tendinitis, [...] (automatic cardioverter/defibrillator) present (Chronic) Arrhythmia, ventricular (Chronic) Hypothyroidism (Chronic) 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) Pulmonary HTN (Chronic) Cardiomyopathy (Chronic) Orthostatic hypotension (Acute) Adrenal cortex insufficiency (Chronic) Pneumonia (Acute) Surgical History History of bilateral knee replacement (Resolved) History of hysterectomy (Resolved) History of bilateral hip replacements (Resolved) S/P implantation of automatic cardioverter/defibrillator (AICD) (Resolved) Family History Father CVA (cerebral vascular accident) Mother Cancer bone [...] Edema: Bilateral (slight,Rt>Lt) Muscle aches with walking: None Resp Respiratory: [...] frequent falls, Negative for orthostatic symptoms Ran Hematologic/Lymphatic: Negative for easy bleeding Endo Endo: Negative [...] oral mucosae normal Teeth and gingiva: fair dentition Eyes General: appearance normal, both eyes and all related structures Eyelids: eyelids normal Conjunctivae: conjunctivae normal Pupils: PERRL EOM: EOM intact bilaterally Neck Neck: normal visual inspection and full ROM Carotids: normal carotid upstroke Chest Chest inspection: normal inspection of the chest and symmetric chest movement Auscultation: Bilateral: Clear to Auscultation Cardio Palpation: normal PMI Rate: regular rate Rhythm: regular rhythm and ectopic beats Heart sounds: S1 normal and S2 normal GI GI: normal to inspection, soft, no hepatosplenomegaly and bowel sounds present Neuro General: alert, awake and oriented x3 Skin Skin: no rashes or lesions noted Extremities Pulses: Normal: Right Radial Pulse, Left Radial Pulse Lower Extremity Edema: None: Bilateral Psych Psychological: normal affect Assessment AND Plan 1. 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 She has undergone surgical repair/replacement as noted above. She is [...] time that her mitral valve issues may lead to the need for an attempt at [...] management. 4. Chronic systolic congestive heart failure I50.22 Plan She does have a history of chronic systolic CHF. At the moment she appears to be stable with respect to her symptoms and volume status. She will continue her current medical management and follow-up. 5. Cardiac dysrhythmia, unspecified I49.9 Plan She does have a history of paroxysmal atrial and ventricular tachycardia dysrhythmias. She appears without acute symptoms at this time. She will continue her current medical management. 6. S/P implantation of automatic cardioverter/defibrillator (AICD) Z95.810 Plan She does have an ICD in place. It has been functioning appropriately. She will continue to be followed. 7. Hyperlipidemia, unspecified hyperlipidemia type E78.5 Plan She does have a history of hyperlipidemia. She will continue medical management with her lipid-lowering therapy. 8. CAD (coronary artery disease) I25.10 mild Plan She does have a history of CAD. In the past this was thought to be noncontributing to her underlying cardiomyopathy. However she does need to continue medical management and follow-up as deemed appropriate. 9. Long-term use of high-risk medication Z79.899 Plan She is on long-term medication that does need to be followed. This includes agent such as of her lipid-lowering therapy. Plan Detail Additional Comments She does have a history of DVT. She continues 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 therapy at this time. Overall, she will continue medical management. She will have future outpatient follow-up. 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 [...] artery disease) I25.10 Coronary Disease-Associated Artery/Lesion type: sun'aq artery Long-term use of high-risk medication Z79.899 [...] artery disease) I25.10 Coronary Disease-Associated Artery/Lesion type: sun'aq artery Long-term use of high-risk medication Z79.899 09/11/17 1716 <Electronically signed by Gurdeep Huang MD> Date Gurdeep Huang MD Cosigner Signature: Date (if applicable) CC: Leanne Means MD [facility] Collected: 08/21/2017 Status: F Source: [place] [place] 9:26 AM [facility] REPOSITORY TYPE CODE TESTS RESULT OUT OF RANGE REFERENCE UNITS LAB 82967226(L 70-99 mg/dL OINC) High Glucose Lvl 151 LAB 17010090(L 8.4-10.2 mg/dL [facility]) Calcium Normal Lvl 9.9 LAB 92371176(L 136-145 mEq/L [facility]) Low Sodium Lvl 134 LAB 26158478(L 3.5-5.1 mEq/L [facility]) Low Potassium Lvl 2.9 LAB 36881032(L 98-107 mEq/L [facility]) Low Chloride 90 LAB 91511097(L 24.0-30.0 mEq/L [facility]) High CO2 32.1 LAB 86782999(L 7-18 mg/dL [facility]) High BUN 55 LAB 0812105(LO 0.6-1.3 mg/dL INC) High Creatinine 1.7 LAB 96848186(L 5.4-30.0 ratio OINC) High BUN/Creat Ratio 32.4 Performed By: #### [id number] #### [facility] [address] [place] [address] EGFR Collected: 08/21/2017 Status: F Source: [place] 9:26 AM [facility] REPOSITORY Order Comment: Order added by Discern Expert. TYPE CODE TESTS RESULT OUT OF RANGE REFERENCE UNITS LAB 13515165(LO mL/min/1.73 INC) m2 Normal eGFR 29 LAB 26329448(LO mL/min/1.73 INC) m2 Normal eGFR AA 36 Performed By: #### [id number] #### [facility] [address] [place] [address] BASIC METABOLIC Collected: 08/07/2017 Status: F Source: [place] PROFILE (BMP) 11:56 AM [facility] REPOSITORY Order Comment: Order Date: 08/07/17 Order Info: [id number] - [facility] Comments: now stat and prn TYPE CODE TESTS RESULT OUT OF RANGE REFERENCE UNITS LAB L501.0100 70-110 mg/dL Normal GLU 80 LAB L501.1000 7-18 mg/dL High BUN 26 LAB L501.1100 0.55-1.02 mg/dL High 1.13 CREAT,SERUM Result Comment: The validity of the calculated GFR AND GFRAA in patients over 70 years has not been determined. Clinical correlation is essential. LAB L501.1110 >60 mL/min Low EST GFR 50 Result Comment: Non- GFR Calc LAB L501.1115 >60 mL/min Normal EST GFR - AA 60 Result Comment: GFR Calc LAB L501.1300 10-20 RATIO High BUN/CRE 23.0 LAB L501.2200 8.5-10.1 mg/dL CA Normal 8.8 LAB L501.5300 136-145 mmol/L NA Normal 139 LAB L501.5600 3.5-5.1 mmol/L K Normal 4.2 LAB L501.5900 98-107 mmol/L CL Normal 102 LAB L501.6100 21.0-32.0 mmol/L Normal CO2 29.0 LAB L501.6200 5-15 Normal GAP 8 Performed By: #### L500.2500 #### [facility] [place], [address] CNDS Observed: 08/02/2017 Status: COMPLETED Source: [place] 12:12 PM [facility]INIC OTHER CAMPUS REPOSITORY HNO ID: [id number] Author: Sukhjinder Mariee Service: Hospital Medicine Author Type: Physician Type: Discharge Summaries Filed: 08/02/2017 12:14 PM Note Text: DISCHARGE SUMMARY PATIENT NAME: Iris Arriaga Admission Information Admission Information ADMIT DATE: 07/31/2017 DISCHARGE DATE: 08/02/17 MY DOCTORS AND MEDICAL TEAM: My Main Hospital Doctor: Sukhjinder Mariee Primary Care Provider: Leanne Means MD My Medical Team Members: Treatment Team: Attending Provider: Sukhjinder Mariee Consulting: Bruna Price MY CONDITION AT DISCHARGE: Stable REASON I WAS IN THE HOSPITAL: DVT SUMMARY OF WHAT HAPPENED WHILE I WAS IN THE HOSPITAL: You were admitted because of worsening symptoms in the left leg in spite of starting on Eliquis. You were given intravenous heparin for 2 days with improvement in swelling. You were changed back to eliquis and discharged. OTHER PROBLEMS/DIAGNOSIS: Active Problems: DVT (deep vein thrombosis) in (HCC) Resolved Problems: * No resolved hospital problems. * OPERATIONS PERFORMED WHILE IN THE HOSPITAL: None IMPORTANT TEST/PROCEDURES: No procedures performed TEST RESULTS NOT AVAILABLE AT THIS TIME: No pending results Discharge Disposition Discharge Disposition: Home With Self Care Activity When You Leave the Hospital No walking restrictions When not walking, elevate left leg as much as possible to keep down swelling. Diet Instructions Regular For Pain When You Leave the Hospital Use acetaminophen (Tylenol) as recommended on the bottle Call Your Doctor If You have lightheadedness, fainting, or confusion Your temperature is greater than 101F Follow Up Appointments Follow-Up Appointment When: In 1 week Leanne Means [phone] [facility] [address] [facility] [address] PCP Requested Referral Additional Provider to Provider Information: Active Problems: DVT (deep vein thrombosis) in (HCC) POA: Yes Assessment AND Plan: Pt given 2 days IV heparin with improvement in swelling. Vascular surgeon did not recommend intervention except in limb threatening condition. FOLLOW-UP APPOINTMENTS ALREADY SCHEDULED WITH A [facility] PROVIDER No future appointments. DISCHARGE MEDICATION: Current Discharge Medication List START taking these medications aspirin 81 mg Take 81 mg by mouth once daily. apixaban (ELIQUIS) 10 mg Take 10 mg by mouth twice daily. Qty: 26 tablet Refills: 0 Comments: After 10 days, start taking 5 mg twice daily CONTINUE these medications which have NOT CHANGED lubiprostone (AMITIZA) 8 mcg Take 8 mcg by mouth once daily. Associated Diagnoses:Generalized abdominal pain loratadine (CLARITIN) 10 mg Take 10 mg by mouth once daily. Associated Diagnoses:Generalized abdominal pain mometasone-formoterol (DULERA) 2 Puffs Inhale 2 Puffs as instructed twice daily. Associated Diagnoses:Generalized abdominal pain Cholecalciferol, Vitamin D3, (VITAMIN D-3) 2,000 unit cap Take by mouth once daily. Associated Diagnoses:Generalized abdominal pain acetaminophen-codeine (TYLENOL-COD #4) 1 tablet Take 1 tablet by mouth every 6 hours as needed. Associated Diagnoses:Generalized abdominal pain ALBUTEROL SULFATE (PROAIR HFA INHALATION) 1-2 Inhalation Inhale 1-2 Inhalation as instructed every 6 hours. Associated Diagnoses:Generalized abdominal pain amitriptyline (ELAVIL) 50 mg Take 50 mg by mouth daily at bedtime. Associated Diagnoses:Generalized abdominal pain gabapentin (NEURONTIN) 100 mg Take 100 mg by mouth twice daily. As needed hydrocortisone (CORTEF) 7.5 mg Take 7.5 mg by mouth once daily. 7mg in a.m. And 5mg @@ bedtime. levothyroxine (SYNTHROID) 88 mcg Take 88 mcg by mouth once daily. citalopram (CeleXA) 20 mg Take 20 mg by mouth once daily. multivitamins(DAILY VITAMIN TAB) Take one(1) tablet daily. Refills: 0 pravastatin sodium(PRAVACHOL 80 MG TAB) Take one tablet at bedtime Refills: 0 CARVEDILOL 6.25 MG TAB Take one tablet twice daily Refills: 0 FUROSEMIDE 20 MG TAB Take one(1) tablet daily. Refills: 0 STOP taking these medications diphenhydramine hcl(BENADRYL 25 MG CAP) Comments: Reason for Stopping: AMIODARONE 200 MG TAB Comments: Reason for Stopping: BP 117/78 Pulse 86 Temp 36.5 ?C (97.7 ?F) (Oral) Resp 18 Ht 180.3 cm (5' 11) Wt 89.1 kg (196 lb 8 oz) SpO2 96% BMI 27.41 kg/m2 Neck supple without JVD. Lungs clear without wheezes, rales, rhonchi or retraction. Speaks in full sentences. Heart RRR, normal S1S2, no murmurs, clicks, rubs, gallops. Abdomen soft, non-tender, non-distended, no masses or hepatosplenomegaly. Extremities without cyanosis, clubbing. 1-2+ edema LLE TIME OF CARE: Discharge Management: I personally spent greater than 30 minutes involved in the discharge management of this patient. SIGNATURE: Sukhjinder Mariee MD PAGER/CONTACT #: DATE: August 02, 2017 TIME: 12:12 PM PROGRESS Observed: 08/02/2017 Status: COMPLETED Source: [place] 7:59 AM [facility] OTHER [facility] REPOSITORY HNO ID: [id number] Author: Sukhjinder Mariee Service: Hospital Medicine Author Type: Physician Type: Progress Notes Filed: 08/02/2017 8:04 AM Note Text: DEPARTMENT OF HOSPITAL MEDICINE PROGRESS NOTE SERVICE DATE: 08/02/2017 SERVICE TIME: 7:59 AM Hospital Medicine/Primary Attending: Sukhjinder Mariee MD SUBJECTIVE INTERVAL HPI: Feeling ok at present. No pain in left leg. Denies chest pain. Wants to go home today. Does have cough and nasal congestion. No headache or myalgia. MEDICATIONS: Reviewed OBJECTIVE PHYSICAL EXAM: BP 117/78 Pulse 86 Temp (Src) 97.7 (Oral) Resp 18 Ht 5' 11 (1.80m) Wt 196 lb 8 oz (89.1kg) SpO2 96% BMI 27.42 kg/(m2). BP 117/78 Pulse 86 Temp 36.5 ?C (97.7 ?F) (Oral) Resp 18 Ht 180.3 cm (5' 11) Wt 89.1 kg (196 lb 8 oz) SpO2 96% BMI 27.41 kg/m2 Neck supple without JVD. Lungs clear without wheezes, rales, rhonchi or retraction. Speaks in full sentences. Heart RRR, normal S1S2, no murmurs, clicks, rubs, gallops. Abdomen soft, non-tender, non-distended, no masses or hepatosplenomegaly. Extremities without cyanosis, clubbing. 1-2+ edema LLE. DATA: Diagnostic tests reviewed for today's visit: CBC: Recent Labs 08/02/17 0558 WBC 9.56 RBC 3.34* HB 10.7* HCT 32.7* PLT 188 MCV 97.9* MCH 32.0 MPV 10.2 RDW 15.9* Coags: Recent Labs 08/02/17 0558 APTT 62.7* ASSESSMENT/PLAN Active Problems: DVT (deep vein thrombosis) (HCC) POA: Yes Assessment AND Plan: Change to po eliquis today. Elastic compression hose. Home later. Nasal drainage: check flu swab CAD stable Multiple falls: more stable ambulating CKD 3: creatinine baseline Adrenal insufficiency: stable on replacement HC Chronic systolic chf: compensated Chronic anemia Plan of care discussed with: Patient SIGNATURE: Sukhjinder Mariee MD PATIENT NAME: Iris Arriaga DATE: August 02, 2017 TIME: 7:59 AM PAGER/CONTACT #: [id number] Observed: 08/02/2017 Status: F Source: [facility] RAPID INFLUENZA A/B AG 7:43 AM HEALTH SYSTEM REPOSITORY Test performed at [facility] Presumptive negative for the presence of Influenza A antigen. Presumptive negative for the presence of Influenza B antigen. It is suggested that negative test results should be confirmed by cell culture, if warranted. Performed By: #### INAB3 #### [facility] [address] [address] HEMOGRAM Collected: 08/02/2017 Status: F Source: [facility] 5:58 AM HEALTH SYSTEM REPOSITORY TYPE CODE TESTS RESULT OUT OF REFERENCE UNITS RANGE LAB WBC(LOINC) 3.98-10.04 thou/cmm WBC 9.56 LAB RBC(LOINC) 3.93-5.22 mil/cmm Low RBC 3.34 LAB HGB(LOINC) 11.2-15.7 g/dL Low Hgb 10.7 LAB HCT(LOINC) 34.1-44.9 % Low Hct 32.7 LAB MCV(LOINC) 79.4-94.8 fl MCV High 97.9 LAB MCH(LOINC) 25.6-32.2 pg MCH 32.0 LAB MCHC(LOINC 31.6-34.8 % ) MCHC 32.7 LAB RDW(LOINC) 11.7-14.4 % RDW High 15.9 LAB RDWSD(LOIN 36.4-46.3 fl C) RDW High SD 56.0 LAB PLT(LOINC) 182-369 thou/cmm Platelet 188 LAB MPV(LOINC) 9.4-12.3 fl MPV 10.2 LAB NRBCR(LOIN 0.0-0.2 % C) Nucleated RBC % 0.2 LAB NRBCA(LOIN 0.00-0.01 thou/cmm C) High Nucleated RBC 0.02 Absolute Performed By: #### CBC1 #### [facility] [address] [address] ACTIVATED PTT Collected: 08/02/2017 Status: F Source: [facility] 5:58 AM HEALTH SYSTEM REPOSITORY TYPE CODE TESTS RESULT OUT OF REFERENCE UNITS RANGE LAB APTT(LOINC 22.0-34.0 sec ) High Activated PTT 62.7 Performed By: #### APTT #### [place] [address] ACTIVATED PTT Collected: 08/01/2017 Status: F Source: [facility] 11:30 PM HEALTH SYSTEM REPOSITORY TYPE CODE TESTS RESULT OUT OF REFERENCE UNITS RANGE LAB APTT(LOINC 22.0-34.0 sec ) High Activated PTT 64.5 Performed By: #### APTT #### [place] [address] ACTIVATED PTT Collected: 08/01/2017 Status: F Source: [facility] 5:50 PM HEALTH SYSTEM REPOSITORY TYPE CODE TESTS RESULT OUT OF REFERENCE UNITS RANGE LAB APTT(LOINC 22.0-34.0 sec ) High Activated PTT 65.3 Performed By: #### APTT #### [place] [address] CASE MGT INIT Observed: 08/01/2017 Status: COMPLETED Source: [facility] 10:22 AM CLINIC OTHER CAMPUS REPOSITORY HNO ID: [id number] Author: Lianna (Rn) JOSSE Ren Service: Care Management Author Type: Registered Nurse Type: Care Mgt Initial Assessment Filed: 08/01/2017 10:40 AM Note Text: CARE MANAGEMENT: ASSESSMENT AND DISCHARGE PLAN SERVICE DATE: 08/01/2017 SERVICE TIME: 10:22 AM PRIMARY CARE PHYSICIAN: Leanne Means MD ADMISSION STATUS: Inpatient POTENTIAL DISCHARGE PLANS To Be Determined Patient/Technical Assoc Stated Goals: home w/ spouse Health Insurance: [employer] Living Arrangement: Home Lives With: Spouse Financial Resources: Retired Primary Contact: Extended Emergency Contact Information Primary Emergency Contact: Yoshi Arriaga Address: [address] [place] [address] [facility] Relation: Spouse Secondary Emergency Contact: Valerie Arriaga Mobile Relation: Daughter Supportive: Yes Other Important Patient Contacts: None CAREGIVER ASSESSMENT: Caregiver is ready, willing and able to meet the patient's needs as recommended by the inter-professional team? Yes Patient's transition needs and plan for meeting these needs: yes Does the patient have an acute stroke diagnosis, or has the patient had a stroke during this admission? Yes ADVANCE DIRECTIVES: Does Patient Have Advance Directives? Yes: Living Will Durable Power of Drawer In Stitch Bonding Machine for Health Care: spouse , copy is in chart Does Patient Have Concerns About Advance Directives? No PRIOR TO ADMISSION: Baseline Mental Status: Alert AND Oriented, Person, Place , Time and Situation Functional Status: Needs Assistance Does Patient Currently Receive Any Community Services or Home Care? None Equipment Prior to Admission: [email or web address] HEALTH: Health Issues Impacting Discharge Plan: None Health Literacy Issues: No PSYCHOSOCIAL: Is the Patient Psychosocially Complex? No Family/Patient Understanding of Illness/Diagnosis: yes Medication Adherence: Do you forget to take your medications? I do not forget to take my medication Have you ever stopped taking medications because you felt worse? None of the time Have you ever taken less of your medication than what was prescribed by your doctor? None of the time In the past 3 months, have you had issues obtaining one or more of your medications? None of the time Are you interested in bedside delivery of your medications? No Food Concerns: In the Last Month, Have You had Trouble Getting Food? No trouble getting food During the Last Month, Have You Worried Whether Your Food Would Run Out Before You Had Enough Money to Buy More? No Psychosocial Needs: None UTILIZATION: Last Admission Date: none Is this Within the Past 30 days? No Has the Patient Been in a [facility] Facility in the Past 30 days? No FREEDOM OF CHOICE EXPLAINED: N/A HANDOFF COMMUNICATION: Pt from home w spouse, cleans and does laundry, pt ind in personal adls, plan return home @ mo. . SIGNATURE: Lianna Ren RN PATIENT NAME: Iris Arriaga DATE: August 01, 2017 TIME: 10:22 AM PAGER/CONTACT #: [phone] HISTORY PHYSICAL Observed: 08/01/2017 Status: COMPLETED Source: [facility] 9:15 AM CLINIC OTHER CAMPUS REPOSITORY HNO ID: [id number] Author: Sukhjinder Mariee Service: Hospital Medicine Author Type: Physician Type: HANDP Filed: 08/01/2017 9:19 AM Note Text: DEPARTMENT OF HOSPITAL MEDICINE PROGRESS NOTE SERVICE DATE: 08/01/2017 SERVICE TIME: 9:15 AM Hospital Medicine/Primary Attending: Sukhjinder Mariee MD SUBJECTIVE INTERVAL HPI: No new complaints. Denies chest pain, shortness of breath, nausea or vomiting. States swelling less. MEDICATIONS: Reviewed OBJECTIVE PHYSICAL EXAM: BP 112/63 Pulse 78 Temp (Src) 97.7 (Oral) Resp 18 Ht 5' 11 (1.80m) Wt 196 lb 8 oz (89.1kg) SpO2 97% BMI 27.42 kg/(m2). BP 112/63 Pulse 78 Temp 36.5 ?C (97.7 ?F) (Oral) Resp 18 Ht 180.3 cm (5' 11) Wt 89.1 kg (196 lb 8 oz) SpO2 97% BMI 27.41 kg/m2 Neck supple without JVD. Lungs clear without wheezes, rales, rhonchi or retraction. Speaks in full sentences. Heart RRR, normal S1S2, no murmurs, clicks, rubs, gallops. Abdomen soft, non-tender, non-distended, no masses or hepatosplenomegaly. Extremities without cyanosis, clubbing. Edema now 1-2+ in LLE. DATA: Diagnostic tests reviewed for today's visit: CBC: Recent Labs 08/01/17 0530 WBC 8.06 RBC 3.19* HB 10.3* HCT 32.0* PLT 151* MCV 100.3* MCH 32.3* MPV 10.1 RDW 15.4* Coags: Recent Labs 08/01/17 0700 07/31/17 1430 INR -- 1.63 APTT 124.2* -- BMP: Recent Labs 08/01/17 0530 NA 134* K 4.1 CHLOR 101 CO2 25 BUN 32* CREAT 1.06* GLUC 100* Cardiac Enzymes: No results for input(s): CK, MB, CKMB, TROPT in the last 24 hours. Liver Function, Amylase, Lipase: No results for input(s): TPROT, ALB, ALT, AST, ALKPHOS, TBILI, AMYLASE, LIPASE, LACTATE in the last 24 hours. ASSESSMENT/PLAN 1. Extensive DVT LLE: currently on heparin drip. Vascular surgery has no new recommendations unless limb threatening conditions develop. Possible discharge tomorrow or Sun on Eliquis. ? 2. CAD: stable at present time. ? 3. Post MVR, bioprosthetic. Stable ? 4. Hx of ICH 7 years ago. ? 5. Multiple falls: PT eval. ? 6. CKD 3: monitor creatinine. ? 7. Adrenal insufficiency: continue on hydrocortisone. ? 8. Chronic systolic CHF: compensated at this time. Monitor for exacerbation. ? 9. Anemia, chronic. Stable. ? Plan of care discussed with: Patient SIGNATURE: Sukhjinder Mariee MD PATIENT NAME: Iris Arriaga DATE: August 01, 2017 TIME: 9:15 AM PAGER/CONTACT #: [phone] ACTIVATED PTT Collected: 08/01/2017 Status: F Source: [facility] 7:00 AM HEALTH SYSTEM REPOSITORY TYPE CODE TESTS RESULT OUT OF REFERENCE UNITS RANGE LAB APTT(LOINC 22.0-34.0 sec ) High alert Activated PTT 124.2 Result Comment: RESULT RECHECKED Performed By: #### APTT #### [place] [id number] PROGRESS Observed: 08/01/2017 Status: COMPLETED Source: [facility] 6:57 AM CLINIC OTHER CAMPUS REPOSITORY HNO ID: [id number] Author: Bruna Price Service: Vascular Surgery Author Type: Physician Type: Progress Notes Filed: 08/01/2017 11:27 AM Note Text: Vascular Surgery Progress Note SERVICE DATE: 08/01/2017 SUBJECTIVE NAEON. Pt states her leg is feeling better and thinks it's less swollen than yesterday. Denies N/V/CP/SOB Diet: DIET HEART HEALTHY OBJECTIVE Vitals: Temp (24hrs), Av.5 ?C (97.7 ?F), Min:36.2 ?C (97.2 ?F), Max:36.7 ?C (98.1 ?F) BP 124/77 Pulse 80 Temp 36.2 ?C (97.2 ?F) (Oral) Resp 16 Ht 180.3 cm (5' 11) Wt 89.1 kg (196 lb 8 oz) SpO2 96% BMI 27.41 kg/m2 O2 Therapy: Room Air IANDO: MEDICATIONS Current Facility-Administered Medications: heparin iv infusion (STANDARD NOMOGRAM) 25,000 units in NaCl 0.45% 250 mL PREMIX 0-3,000 Units/hr INTRAVENOUS CONTINUOUS And heparin RATE CHANGE bolus 1,000-10,000 Units for subtherapeutic aptt results 1,000-10,000 Units INTRAVENOUS PRN carvedilol 6.25 mg tab(s) (COREG) 6.25 mg ORAL BID w MEALS amiodarone 200 mg tab(s) (PACERONE) 200 mg ORAL DAILY gabapentin 100 mg cap(s) (NEURONTIN) 100 mg ORAL BID loratadine 10 mg tab(s) (CLARITIN) 10 mg ORAL DAILY atorvastatin 20 mg tab(s) (LIPITOR) 20 mg ORAL AT BEDTIME fluticasone-vilanterol 200-25 mcg/dose 1 Inhalation (BREO ELLIPTA) 1 Inhalation INHALATION DAILY hydrocortisone 10 mg tab(s) (CORTEF) 10 mg ORAL DAILY lubiprostone 8 mcg capsule (AMITIZA) 8 mcg ORAL DAILY furosemide 20 mg tab(s) (LASIX) 20 mg ORAL DAILY multivitamin with folic acid 1 tablet (THERA, ONE DAILY) 1 tablet ORAL DAILY citalopram 20 mg tab(s) (CeleXA) 20 mg ORAL DAILY levothyroxine 88 mcg tab(s) (SYNTHROID) 88 mcg ORAL DAILY (6 AM) amitriptyline 50 mg tab(s) (ELAVIL) 50 mg ORAL AT BEDTIME cholecalciferol 2,000 Units tab(s) (VITAMIN D3) 2,000 Units ORAL DAILY 0.9% NaCl 2-10 mL 2-10 mL INTRAVENOUS q 12 H ondansetron 4 mg tab(s) (ZOFRAN) 4 mg ORAL q 6 H PRN Or ondansetron (PF) 4 mg injection (ZOFRAN) 4 mg INTRAVENOUS q 6 H PRN docusate sodium 100 mg cap(s) (COLACE) 100 mg ORAL BID PRN acetaminophen 650 mg tab(s) (TYLENOL) 650 mg ORAL q 6 H PRN aspirin 81 mg chewable tab(s) 81 mg ORAL DAILY HYDROcodone 5 mg - acetaminophen 325 mg tablet (NORCO) 1 tablet ORAL q 6 H PRN Labs: Recent Labs 08/01/17 0530 07/31/17 1430 NA -- 133* K -- 4.0 CHLOR -- 99 CO2 -- 25 BUN -- 36* CREAT -- 1.25* GLUC -- 93 ANION -- 13 CA -- 8.8 WBC 8.06 8.71 HB 10.3* 10.9* HCT 32.0* 33.6* PLT 151* 157* INR -- 1.63 Exam: GENERAL: No distress, Alert NEURO: AANDOx3, CN II-XII grossly intact HEENT: normocephalic, atraumatic LUNGS: Unlabored breathing O2 Therapy: Room Air CARDIAC: normal rate ABDOMEN: Abdomen soft, non-tender, BS normal, No masses or organomegaly EXTREMITIES: Good capillary refill., No ulcers. Palpable distal pulses, warm. Some edema through L>R and patches of petechial rash on LLE ASSESSMENT AND PLAN: Active Hospital Problems Diagnosis Date Noted - DVT (deep vein thrombosis) in (HCC) 07/31/2017 77 year old female with ileofemoral DVT - cont heparin gtt - compression stocking on discharge for swelling Assessment and plan discussed with attending: Dr Price SIGNATURE: Amita Brennan MD PATIENT NAME: Iris Arriaga DATE: August 01, 2017 TIME: 6:57 AM Pager: [phone] I saw and evaluated the patient. Discussed with the resident and agree with resident's findings and plan as documented in the resident's note. Pt states her leg is feeling better. She thinks it is less swollen. She would like to get out of bed. Okay for OOB to chair or ambulate with assist from vascular standpoint. I would continue heparin and elevation until tomorrow (at least 24 hrs) and assess symptoms. Pt still with small mild petechie on her LLE, no evidence of limb threat or gangrene, LLE warm, mild edema. Bruna Price MD HEMOGRAM Collected: 08/01/2017 Status: F Source: [facility] 5:30 AM HEALTH SYSTEM REPOSITORY TYPE CODE TESTS RESULT OUT OF REFERENCE UNITS RANGE LAB WBC(LOINC) 3.98-10.04 thou/cmm WBC 8.06 LAB RBC(LOINC) 3.93-5.22 mil/cmm Low RBC 3.19 LAB HGB(LOINC) 11.2-15.7 g/dL Low Hgb 10.3 LAB HCT(LOINC) 34.1-44.9 % Low Hct 32.0 LAB MCV(LOINC) 79.4-94.8 fl High MCV 100.3 LAB MCH(LOINC) 25.6-32.2 pg High MCH 32.3 LAB MCHC(LOINC) 31.6-34.8 % MCHC 32.2 LAB RDW(LOINC) 11.7-14.4 % High RDW 15.4 LAB RDWSD(LOINC 36.4-46.3 fl ) High RDW SD 56.2 LAB PLT(LOINC) 182-369 thou/cmm Low Platelet 151 LAB MPV(LOINC) 9.4-12.3 fl MPV 10.1 Performed By: #### CBC1 #### [place] [address] BASIC PANEL Collected: 08/01/2017 Status: F Source: [facility] 5:30 AM HEALTH SYSTEM REPOSITORY TYPE CODE TESTS RESULT OUT OF REFERENCE UNITS RANGE LAB NA(LOINC) 136-145 mEq/L Low Sodium Blood 134 LAB K(LOINC) 3.5-5.1 mEq/L Potassium Blood 4.1 LAB CL(LOINC) 98-107 mEq/L Chloride Blood 101 LAB CO2(LOINC) 21-32 mEq/L CO2 Blood 25 LAB GLU(LOINC) 70-99 mg/dL Glucose High Blood 100 LAB BUN(LOINC) 7-18 mg/dL BUN High Blood 32 LAB CREA(LOINC 0.51-0.95 mg/dL ) High Creatinine Blood 1.06 LAB CA(LOINC) 8.5-10.1 mg/dL Calcium Blood 8.6 LAB ANGAP(LOIN 8-16 C) Anion Gap 12 Performed By: #### P8 #### [place] [address] MDRD GFR Collected: 08/01/2017 Status: F Source: [facility] 5:30 AM HEALTH SYSTEM REPOSITORY TYPE CODE TESTS RESULT OUT OF RANGE REFERENCE UNITS LAB GFRFN(LOINC >60mL/min/1.73m ) 2 eGFR 50.46 Result Comment: If the patient is , multiply the result by 1.210. Performed By: #### GFR #### [facility] [address] [place] [id number] NURSING PROG Observed: 08/01/2017 Status: COMPLETED Source: [facility] 3:[address] [facility] REPOSITORY HNO ID: [id number] Author: Carmen (Rn) JOSSE Villatoro Service: Nursing Author Type: Registered Nurse Type: Nursing Progress Note Filed: 08/01/2017 3:58 AM Note Text: Nursing Progress Note Patient Name: Iris Arriaga Patient Location: [place] [address]/[place] [address]* Event(s) / Intervention Note: Patient's PTT result came back >212; sent text page to sound with no call back. 30 minutes later sent text page with no call back. 30 minutes later got a hold of the physician through another nurse. This note was completed by: Carmen Villatoro RN ACTIVATED PTT Collected: 07/31/2017 Status: F Source: [facility] 10:50 PM HEALTH SYSTEM REPOSITORY TYPE CODE TESTS RESULT OUT OF REFERENCE UNITS RANGE LAB APTT(LOINC 22.0-34.0 sec ) High alert Activated PTT >212.0 Result Comment: RESULT RECHECKED Performed By: #### APTT #### [facility] [address] [place] [address] CONSULT Observed: 07/31/2017 Status: COMPLETED Source: [facility] 5:[address] [facility] REPOSITORY HNO ID: [id number] Author: Bruna Price Service: Vascular Surgery Author Type: Physician Type: Consults Filed: 08/01/2017 10:38 AM Note Text: CONSULT: VASCULAR SURGERY SERVICE SERVICE DATE: 07/31/2017 SERVICE TIME: 5:43 PM REASON FOR CONSULT: LLE ileofemoral and distal DVT REQUESTING PHYSICIAN: Dr. Arguelles PRIMARY CARE PHYSICIAN: Leanne Means MD SUBJECTIVE Ms. Arriaga is a 77 year old female who presents worsening pain in LLE. She was diagnosed with a LLE DVT as an outpatient and started on eliquis. Since then she has had worsening pain and swelling. Patient has an IVC filter in place. She also has a history of a valve replacement as well as a heart attack and a stroke when she was on coumadin. She is partially independent in her current living setting. She lives at home with her . PAST MEDICAL HISTORY Diagnosis Date - Cardiac arrest (HCC) 11/15/2009 - Cerebrovascular accident (CVA) with intracranial hemorrhage ([facility]) 11/15/09 - Colon polyp - DVT (deep venous thrombosis) ([facility]) Bilat LE - Hypercholesteremia - Irregular heart beat - Pulmonary embolism ([facility]) 11/2009 - Seizure ([facility]) 11/15/2009 result of the CVA PAST SURGICAL HISTORY Procedure Laterality Date - COLONOSCOP W/ OR W/O [facility] SPEC 01/30/16 Colonoscopy outpt [facility] mac - Defibrilator/Pacemaker 2000 Replaced 2004 - REM LESIO TRUNK,ARM,LEG 2.1-3.0CM 01/31/10 Exc. servando cyst sternum - REPLACEMENT MITRAL VALVE W/CP BYPS 2009 - VENA CAVA FILTER 11/27/2009 FAMILY HISTORY Problem Relation Age of Onset - Cancer Mother multiple myeloma to bone - age 66 - Cancer Sister bone - age 66 - Diabetes Sister - Stroke Father Social History Substance Use Topics - Smoking status: Never Smoker - Smokeless tobacco: Not on file - Alcohol use No (Not in a hospital admission) Current hospital medications: heparin iv infusion (STANDARD NOMOGRAM) 25,000 units in NaCl 0.45% 250 mL PREMIX 0-3,000 Units/hr INTRAVENOUS CONTINUOUS heparin RATE CHANGE bolus 1,000-10,000 Units for subtherapeutic aptt results 1,000-10,000 Units INTRAVENOUS PRN Allergies As of Date: 07/31/2017 Allergen Noted Reaction LEVAQUIN [LEVOFLOXACIN] 12/28/2009 Anaphylaxis Fully Assessed 07/31/2017 COMPLETE REVIEW OF SYSTEMS: as per HPI OBJECTIVE PHYSICAL EXAM: GENERAL: Alert, no distress, cooperative LUNGS: Lungs clear to auscultation, Good diaphragmatic excursion CARDIAC: Normal S1 and S2; no rubs, murmurs, or gallops ABDOMEN: Abdomen soft, non-tender, BS normal, No masses or organomegaly EXTREMITIES: Good capillary refill., No ulcers. Palpable distal pulses, warm. Some edema through L>R and mild petechial rash through dependent area of her half Patient Vitals for the past 24 hrs: BP Temp Pulse Resp SpO2 Height Weight 07/31/17 1600 104/61 - 80 18 (!) 94 % - - 07/31/17 1453 - - 88 20 95 % - - 07/31/17 1104 95/59 - - - - - - 07/31/17 1101 - 36.7 ?C (98.1 ?F) 87 20 (!) 94 % 180.3 cm (5' 11) 84.8 kg (187 lb) Body mass index is 26.08 kg/(m2). DATA: Diagnostic tests reviewed for today's visit: Outside chart from [place] reviewed. IMPRESSION/RECOMMENDATIONS 77 year old female with Ileofemoral DVT - Recommend medical admit and initiation of heparin, with elevation of LLE - Would benefit from compression stocking on discharge for swelling - Discussed with Dr Dee MD SIGNATURE: Severiano Aguilar MD PATIENT NAME: Iris Arriaga DATE: July 31, 2017 TIME: 6:16 PM Pager: [phone] I saw and evaluated the patient. Discussed with the resident and agree with resident's findings and plan as documented in the resident's note. See my note for details. Bruna Price MD HISTORY PHYSICAL Observed: 07/31/2017 Status: COMPLETED Source: [facility] 5:41 PM CLINIC OTHER CAMPUS REPOSITORY HNO ID: [id number] Author: Sukhjinder Mariee Service: Hospital Medicine Author Type: Physician Type: HANDP Filed: 07/31/2017 5:53 PM Note Text: DEPARTMENT OF HOSPITAL MEDICINE HISTORY AND PHYSICAL EXAM SERVICE DATE: 07/31/2017 SERVICE TIME: 5:42 PM Primary Care Physician: Leanne Means MD NIGHT AND WEEKEND COVERAGE: From 7am - 7pm, please call [phone] After 7pm, please call cross cover pager #[phone] SUBJECTIVE CHIEF COMPLAINT: LLE pain HPI: This is a 77 year old female who presents with LLE pain for the last several days. She did fall several weeks ago but did not injure her left leg nor did she strike her head. She saw her PCP on 07/28 and was started on Eliquis as pt had a documented DVT. She returned to her PCP on 07/31 with more left leg pain in spite of therapeutic OAC. She is now being transferred from [place] for furtherTx. Denies recent CP or SOB. No fever or chills. Pt does have a hx of DVT and has an IVCF in place. PAST MEDICAL HISTORY Diagnosis Date - Cardiac arrest (HCC) 11/15/2009 - Cerebrovascular accident (CVA) with intracranial hemorrhage (HCC) 11/15/09 - Colon polyp - DVT (deep venous thrombosis) ([facility]) Bilat LE - Hypercholesteremia - Irregular heart beat - Pulmonary embolism (HCC) 11/2009 - Seizure ([facility]) 11/15/2009 result of the CVA PAST SURGICAL HISTORY Procedure Laterality Date - COLONOSCOP W/ OR W/O [facility] SPEC 01/30/16 Colonoscopy outpt [facility] mac - Defibrilator/Pacemaker 2000 Replaced 2004 - REM LESIO TRUNK,ARM,LEG 2.1-3.0CM 01/31/10 Exc. servando cyst sternum - REPLACEMENT MITRAL VALVE W/CP BYPS 2009 - VENA CAVA FILTER 11/27/2009 FAMILY HISTORY Problem Relation Age of Onset - Cancer Mother multiple myeloma to bone - age 66 - Cancer Sister bone - age 66 - Diabetes Sister - Stroke Father Social History Substance Use Topics - Smoking status: Never Smoker - Smokeless tobacco: Not on file - Alcohol use No HOME MEDICATIONS: (Not in a hospital admission) ALLERGIES Allergen Reactions - Levaquin [Levofloxa* Anaphylaxis REVIEW OF SYSTEM: All ROS are negative except those noted in HPI OBJECTIVE PHYSICAL EXAM: BP 104/61 Pulse 80 Temp 98.1 Resp 18 Ht 5' 11 (1.80m) Wt 187 lb (84.8kg) SpO2 94% BMI 26.09 kg/(m2). GENERAL: Well appearing, alert, in no acute distress, well- hydrated, well nourished. SKIN: Skin color, texture, turgor normal, no suspicious rashes or lesions HEAD: Normocephalic, atraumatic EYES: Anicteric sclera. Pupils are equally round and reactive to light. Extraocular movements are intact. EARS: External ears normal, canals clear NOSE/SINUSES: Nares normal, septum midline, mucosa normal, no drainage or sinus tenderness OROPHARYNX: Lips, mucosa, and tongue normal, teeth and gums normal, oropharynx normal NECK: Supple, no adenopathy; thyroid symmetric, normal size, no bruits LUNGS: Clear to auscultation with no wheezes, rales or rhonchi. No retractions. HEART: RRR without murmur, gallop, or rubs. No ectopy ABDOMEN: Normal abdominal exam, Abdomen soft, non-tender. Bowel sounds normal. No masses, organomegaly EXTREMITIES: LLE is 3+ swollen to the groin. The leg is TTP as well. RLE is not swollen. Good capillary refill. MUSCULOSKELETAL: No joint swelling, deformity, or tenderness PULSES: Normal NEURO: Reflexes normal and symmetric. Sensation grossly intact. DATA: Diagnostic tests reviewed for today's visit: Most recent labs and imaging results. CBC: Recent Labs 07/31/17 1430 WBC 8.71 RBC 3.38* HB 10.9* HCT 33.6* PLT 157* MCV 99.4* MCH 32.2 MPV 9.9 RDW 15.7* Coags: Recent Labs 07/31/17 1430 INR 1.63 BMP: Recent Labs 07/31/17 1430 NA 133* K 4.0 CHLOR 99 CO2 25 BUN 36* CREAT 1.25* GLUC 93 CMP: Recent Labs 07/31/17 1430 NA 133* K 4.0 CHLOR 99 CO2 25 BUN 36* CREAT 1.25* GLUC 93 CA 8.8 ANION 13 Cardiac Enzymes: No results for input(s): CK, MB, CKMB, TROPT in the last 24 hours. Liver Function, Amylase, Lipase: No results for input(s): TPROT, ALB, ALT, AST, ALKPHOS, TBILI, AMYLASE, LIPASE, LACTATE in the last 24 hours. MG/PHOS: No results for input(s): MG, P in the last 24 hours. Renal Panel: Recent Labs 07/31/17 1430 CREAT 1.25* BUN 36* GLUC 93 CA 8.8 CHLOR 99 K 4.0 CO2 25 NA 133* Heme: No results for input(s): RETICP, ABSRETIC, LD, BRODERICK, FE, TIBC, TRANSFERSAT in the last 24 hours. ASSESSMENT/PLAN 1. Extensive DVT LLE: currently on heparin drip. Vascular surgery has no new recommendations unless limb threatening conditions develop. 2. CAD: stable at present time. 3. Post MVR, bioprosthetic. Stable 4. Hx of ICH 7 years ago. 5. Multiple falls: PT eval. 6. CKD 3: monitor creatinine. 7. Adrenal insufficiency: continue on hydrocortisone. 8. Chronic systolic CHF: compensated at this time. Monitor for exacerbation. 9. Anemia, chronic. Stable. VTE Prophylaxis: Patient is already anti-coagulated. Disposition: home Plan of care discussed with: Patient SIGNATURE: Sukhjinder Mariee MD PATIENT NAME: Iris Arriaga DATE: July 31, 2017 TIME: 5:42 PM PAGER/CONTACT #: [phone] PROGRESS Observed: 07/31/2017 Status: COMPLETED Source: [facility] 4:04 PM CLINIC OTHER CAMPUS REPOSITORY HNO ID: [id number] Author: Bruna Price Service: Vascular Surgery Author Type: Physician Type: Progress Notes Filed: 07/31/2017 4:12 PM Note Text: Pt seen and examined. See resident c/s note for details. Pt with LLE ileofemoral and distal DVT, on OAC at home but complaining of worsening pain. Sent in by pcp. Pt with history of hemorrhagic stroke from coumadin per her in the past. Multiple medical issues. Pt has IVC filter in place. Pt has a tissue heart valve. Pt states she walks around at home, but is not on her feet for extended periods. She has tried to elevate her LLE as able to at home and has been taking tylenol for pain. Pt seen and examined, mild edema of LLE. No evidence of venous gangrene or limb threat. Foot warm. See resident note for details. I had an extensive discussion with the pt and her . She would like to avoid surgery if possible and is not interested in pharmacologic lysis at this point with EKOS secondary to history of stroke. While she does have an ileofemoral DVT, she is not at significant risk for changes in function secondary to post-phlebitic syndrome because she does not spend extended periods of time on her feet currently and is not extremely active. Thus, I would reserve invasive measures for limb threat only, which there is no sign of at this time. At this point I would recommend medical admit, starting the patient on heparin, elevation of the LLE (ideally above her heart) and symptom control with warm compresses and pain medication to see if symptoms improve. She can be discharged with a compression stocking to help with some of the swelling if needed. Bruna Price MD ED PROV NOTE Observed: 07/31/2017 Status: COMPLETED Source: [facility] 3:04 PM CLINIC OTHER CAMPUS REPOSITORY HNO ID: [id number] Author: Sneha Albarado MD Service: Emergency Medicine Author Type: Physician Type: ED Provider Notes Filed: 07/31/2017 3:05 PM Note Text: I have personally seen and examined this patient. I have fully participated in the care of this patient with the resident. I have reviewed all pertinent clinical information, including history, physical exam and plan I was present for the significant portion of the procedure/(s) Physical exam: HEENT: Normocephalic, atraumatic, pupils equal round reactive to light, EOMI Neck: Supple no lymphadenopathy cardiac: Regular rate and rhythm, normal S1-S2, no murmurs rubs or gallops lungs: Clear to auscultation bilaterally, no wheezes, rales, rhonchi abdomen: Soft, nontender, nondistended, normoactive bowel sounds, no peritoneal signs extremities: No cyanosis, patient has left lower extremity edema with multiple areas of petechiae and pain to palpation, edema extends from the thyroid down to the foot, DP and PT pulses are intact by Doppler although DP pulse on the left is not palpable. Sensation is still intact in the left lower extremity as is motor function. neuro: Cranial nerves II through XII grossly intact, moving all extremities equally, no focal deficits, gait is normal, 5 over 5 strength in upper and lower extremities, sensation intact bilateral upper and lower extremities, no cerebellar signs Sneha Albarado MD 07/31/17 1505 HEMOGRAM/DIFF Collected: 07/31/2017 Status: F Source: [facility] 2:30 PM [facility] REPOSITORY TYPE CODE TESTS RESULT OUT OF REFERENCE UNITS RANGE LAB WBC(LOINC) 3.98-10.04 thou/cmm WBC 8.71 LAB RBC(LOINC) 3.93-5.22 mil/cmm Low RBC 3.38 LAB HGB(LOINC) 11.2-15.7 g/dL Low Hgb 10.9 LAB HCT(LOINC) 34.1-44.9 % Low Hct 33.6 LAB MCV(LOINC) 79.4-94.8 fl MCV High 99.4 LAB MCH(LOINC) 25.6-32.2 pg MCH 32.2 LAB MCHC(LOINC 31.6-34.8 % ) MCHC 32.4 LAB RDW(LOINC) 11.7-14.4 % RDW High 15.7 LAB RDWSD(LOIN 36.4-46.3 fl C) RDW SD High 57.0 LAB PLT(LOINC) 182-369 thou/cmm Low Platelet 157 LAB MPV(LOINC) 9.4-12.3 fl MPV 9.9 LAB SEG(LOINC) % Seg Neutrophil 72.5 LAB IGRE(LOINC % ) Immature Grans 0.50 LAB LYMPH(LOIN % C) Lymphocyte 9.1 LAB MNO(LOINC) % Monocyte 13.0 LAB EOSIN(LOIN % C) Eosinophil 4.4 LAB BASO(LOINC % ) Basophil 0.5 LAB SEGN(LOINC 1.56-6.13 thou/cmm ) Abs. High Neut 6.31 LAB IGAB(LOINC 0.00-0.05 thou/cmm ) Abs Immature Grans 0.04 LAB LYMN(LOINC 1.18-3.74 thou/cmm ) Low Abs. Lymph 0.79 LAB MONON(LOIN 0.27-0.70 thou/cmm C) Abs. High Upson 1.13 LAB EOSN(LOINC 0.00-0.31 thou/cmm ) Abs. High Eosin 0.38 LAB BASON(LOIN 0.01-0.08 thou/cmm C) Abs. Baso 0.04 Performed By: #### CBCD1 #### [place] [id number] PROTIME Collected: 07/31/2017 Status: F Source: [facility] 2:30 PM [facility] SYSTEM REPOSITORY TYPE CODE TESTS RESULT OUT OF REFERENCE UNITS RANGE LAB PTI(LOINC) 9.3-11.9 sec Prothrombin High Time 16.6 LAB INR(LOINC) INR 1.63 Result Comment: Standard Therapy 2.0-3.0 High Dose 2.5-3.5 Performed By: #### PT #### [facility] [address] [place] [address] BASIC PANEL Collected: 07/31/2017 Status: F Source: [facility] 2:30 PM HEALTH SYSTEM REPOSITORY TYPE CODE TESTS RESULT OUT OF REFERENCE UNITS RANGE LAB NA(LOINC) 136-145 mEq/L Low Sodium Blood 133 LAB K(LOINC) 3.5-5.1 mEq/L Potassium Blood 4.0 LAB CL(LOINC) 98-107 mEq/L Chloride Blood 99 LAB CO2(LOINC) 21-32 mEq/L CO2 Blood 25 LAB GLU(LOINC) 70-99 mg/dL Glucose Blood 93 LAB BUN(LOINC) 7-18 mg/dL BUN High Blood 36 LAB CREA(LOINC 0.51-0.95 mg/dL ) High Creatinine Blood 1.25 LAB CA(LOINC) 8.5-10.1 mg/dL Calcium Blood 8.8 LAB ANGAP(LOIN 8-16 C) Anion Gap 13 Performed By: #### P8 #### [place] [address] MDRD GFR Collected: 07/31/2017 Status: F Source: [facility] 2:30 PM HEALTH SYSTEM REPOSITORY TYPE CODE TESTS RESULT OUT OF RANGE REFERENCE UNITS LAB GFRFN(LOINC >60mL/min/1.73m ) 2 eGFR 41.72 Result Comment: If the patient is , multiply the result by 1.210. Performed By: #### GFR #### [place] [address] ED PROV NOTE Observed: 07/31/2017 Status: COMPLETED Source: [facility] 1:47 PM CLINIC OTHER CAMPUS REPOSITORY HNO ID: [id number] Author: Sneha Albarado MD Service: Emergency Medicine Author Type: Physician Type: ED Provider Notes Filed: 08/06/2017 7:16 PM Note Text: ED Provider Note Patient Name: Iris Arriaga SERVICE DATE: 07/31/17 History Patient presents with: Right Lower Extremity Pain: Pt presents to ED with a known RLE DVT. Pt states the pain and edema has increased over the last week. Taking Eliquis. Denies SOB or CP. Moaning in discomfort. +pedal pulses patient presents emergency department from her primary care physician's office for blood clot in her left lower extremity. Patient states that she was diagnosed with a left lower kidney DVT on Friday. She was started on L aggressive this time. She presented to the primary care physician's office today because she's had increasing leg pain and swelling. A CT scan was obtained and showed extensive clot from the left internal iliac with extension extension all the way down. Additionally patient has a history of adrenal insufficiency. Her gave her 10 mg of prednisolone today. Patient denies any shortness of breath. She denies any pleuritic chest pain. She states that she is able to ambulate but it causes significant pain. She states that her pain is 8 out of 10 currently aching and throbbing in nature. History provided by: Patient silk opener used: No PAST MEDICAL HISTORY Diagnosis Date - Cardiac arrest ([facility]) 11/15/2009 - Cerebrovascular accident (CVA) with intracranial hemorrhage ([facility]) 11/15/09 - Colon polyp - DVT (deep venous thrombosis) ([facility]) Bilat LE - Hypercholesteremia - Irregular heart beat - Pulmonary embolism ([facility]) 11/2009 - Seizure ([facility]) 11/15/2009 result of the CVA PAST SURGICAL HISTORY Procedure Laterality Date - COLONOSCOP W/ OR W/O [facility] SPEC 01/30/16 Colonoscopy outpt [facility] mac - Defibrilator/Pacemaker 2000 Replaced 2004 - REM LESIO TRUNK,ARM,LEG 2.1-3.0CM 01/31/10 Exc. servando cyst sternum - REPLACEMENT MITRAL VALVE W/CP BYPS 2009 - VENA CAVA FILTER 11/27/2009 FAMILY HISTORY Problem Relation Age of Onset - Cancer Mother multiple myeloma to bone - age 66 - Cancer Sister bone - age 66 - Diabetes Sister - Stroke Father Social History Social History Main Topics - Smoking status: Never Smoker - Smokeless tobacco: None - Alcohol use No - Drug use: No - Sexual activity: Not Asked ALLERGIES Allergen Reactions - Levaquin [Levofloxa* Anaphylaxis Review of Systems Constitutional: Negative for chills, diaphoresis and fever. HENT: Negative for congestion, rhinorrhea, sore throat and voice change. Eyes: Negative for visual disturbance. Respiratory: Negative for cough and shortness of breath. Cardiovascular: Positive for leg swelling. Negative for chest pain. Gastrointestinal: Negative for abdominal pain, constipation, diarrhea, nausea and vomiting. Genitourinary: Negative for dysuria. Musculoskeletal: Negative for back pain and neck pain. Skin: Positive for color change. Negative for pallor, rash and wound. Neurological: Negative for weakness and numbness. Physical Exam BP 124/77 Pulse 80 Temp (Src) 97.2 (Oral) Resp 16 Ht 5' 11 (1.80m) Wt 196 lb 8 oz (89.1kg) SpO2 96% BMI 27.42 kg/(m2). Physical Exam Constitutional: She is oriented to person, place, and time. She appears well-developed and well-nourished. No distress. HENT: Head: Normocephalic and atraumatic. Right Ear: External ear normal. Left Ear: External ear normal. Mouth/Throat: Oropharynx is clear and moist. No oropharyngeal exudate. Eyes: Conjunctivae and EOM are normal. Pupils are equal, round, and reactive to light. Right eye exhibits no discharge. Left eye exhibits no discharge. Neck: Normal range of motion. Neck supple. No tracheal deviation present. No thyromegaly present. Cardiovascular: Normal rate, regular rhythm and intact distal pulses. Exam reveals gallop. Exam reveals no friction rub. No murmur heard. S4 noted Pulmonary/Chest: Effort normal and breath sounds normal. No stridor. No respiratory distress. Abdominal: Soft. She exhibits no distension and no mass. There is no tenderness. There is no rebound and no guarding. Musculoskeletal: She exhibits edema and tenderness. Left lower extremity significantly more edematous than right lower extremity, multiple petechia noted from the knee down, there is a dopplerable biphasic DP pulse, increased venous distention noted over the leg with scant blue hue Lymphadenopathy: She has no cervical adenopathy. Neurological: She is alert and oriented to person, place, and time. Skin: Skin is warm. No rash noted. She is not diaphoretic. Nursing note and vitals reviewed. Diagnostic Testing ED Labs Ordered and Reviewed BASIC METABOLIC PANEL (AK,AV,EU,FV,HL,NIECY,MM,SP) - Abnormal; Notable for the following: Result Value Ref Range Sodium 133 (*) 136 - 145 mEq/L BUN 36 (*) 7 - 18 mg/dL Creatinine 1.25 (*) 0.51 - 0.95 mg/dL All other components within normal limits PROTHROMBIN TIME / PT (AK,AV,EU,FV,HL,NIECY,MM,SP) - Abnormal; Notable for the following: Prothrombin Time 16.6 (*) 9.3 - 11.9 sec All other components within normal limits CBC + AUTO DIFF (AK,AV,EU,FV,HL,NIECY,MM,SP) - Abnormal; Notable for the following: RBC 3.38 (*) 3.93 - 5.22 mil/cmm HGB 10.9 (*) 11.2 - 15.7 g/dL Hematocrit 33.6 (*) 34.1 - 44.9 % MCV 99.4 (*) 79.4 - 94.8 fl RDW 15.7 (*) 11.7 - 14.4 % RDW-SD 57.0 (*) 36.4 - 46.3 fl Platelet Count 157 (*) 182 - 369 thou/cmm Seg. Neut. # 6.31 (*) 1.56 - 6.13 thou/cmm Lymphocyte # 0.79 (*) 1.18 - 3.74 thou/cmm Monocyte # 1.13 (*) 0.27 - 0.70 thou/cmm Eosinophil # 0.38 (*) 0.00 - 0.31 thou/cmm All other components within normal limits MDRD GFR ACTIVATED PTT (AK,AV,EU,FV,HL,NIECY,MM,SP) PROTHROMBIN TIME / PT (AK,AV,EU,FV,HL,NIECY,MM,SP) CBC + PLT (AK,AV,EU,FV,HL,NIECY,MM,SP) Procedures Medical Decision Making / ED Course ED Course Patient presents to emergency department complaining of left leg pain with no DVT and worsening of this DVT despite anticoagulation. Vascular surgery was consulted. They've evaluated the patient and would like to have the patient admitted to medicine on a heparin drip. Patient was given a stress dose of Solu-Cortef 100 mg. She is given a liter of IV fluids as well as morphine for pain control. Her blood work reveals sodium 133, P1 36, creatinine 1.25, limits 157, INR 1.6, PT 16.6. Hemoglobin and 0.9 hematocrit 33.6. Patient subsided. May be from her clot burden versus steroid use. At this point time she does have dopplerable pulses. Patient is started on a heparin drip and given a heparin bolus of 80units/kg. At this point, I have low suspicion for pulmonary embolus as the patient denies any chest discomfort, she has no shortness of breath. Her abdominal exam is benign. PT pulse was not dopplerable however the patient does have brisk capillary refills noted. Patient discussed with hospitalist and admitted in stable condition Encounter Diagnosis ICD-10-CM 1. Acute deep vein thrombosis (DVT) of iliac vein of left lower extremity (HCC) I82.422 Plan The Patient was ADMITTED TO: tele. Condition at time of disposition: stable SIGNATURE: MD Dave Cedeno (Res) MD [place] Resident 07/31/17 7598 Sneha Albarado MD 08/06/17 1916 ALLERGIES ALLERGIES DATE TYPE / NAME / CODE REACTION SEVERITY SOURCE CODE 07/15/2018 Drug warfarin/[id number] Other Unknown [place] Allergy/41 4(RXNORM) [facility] [id number]([facility]) Repository 07/15/2018 Drug levofloxacin/F0060 Hives Unknown [place] Allergy/41 20036(RXNORM) [facility] 2698774([facility]) Repository 07/15/2018 Drug torsemide/[id number] Rash [place] Allergy/41 14(RXNORM) Community 5538385([facility]) Repository 12/28/2009 DRUG LEVOFLOXACIN ANAPHYLAXIS [facility] INGREDI/41 Other [place] 4281443([facility] CT) /4321943 LEVOFLOXACIN [facility] 06([facility]) Repository ENCOUNTERS ENCOUNTERS ADMIT/DISCHARGE ACCOUNT NUMBER ADMITTING ENCOUNTER LOCATION SOURCE CLASS 07/28/2018 [id number] Ambulatory Building:[facility] [place] Practices Repository 07/27/2018 [id number] Ambulatory [facility] ding: Repository 07/27/2018 [id number] Ambulatory [facility] ding:LAB Repository 07/15/2018/07/15/20 [id number] Ambulatory BMSBuilding: [place] 18 [facility] Repository 07/14/2018/07/14/20 [id number] Ambulatory [place] ding:ENRoom: Repository AC15 07/08/2018 [id number] Ambulatory [facility] ding:MEDOUTP Repository 06/30/2018 [id number] Ambulatory [facility] ding:US Repository 06/29/2018 [id number] Ambulatory BMSBuilding: [place] BMS.CF.[facility] Repository 06/29/2018 [id number] Ambulatory [facility] ding:[facility] Repository 06/27/2018 [id number] Ambulatory BMSBuilding: [place] [facility] Repository 06/25/2018/06/25/20 [id number] Ambulatory BMSBuilding: [place] 18 BMS.[facility] Repository 06/23/2018/07/17/20 [id number] Riky, Farhat Inpatient [place] 18 Chi Encounter [facility] ding:TCURoom Repository : ZCF09Smh: 1 06/23/2018 [id number] Riky, Farhat Ambulatory BMSBuilding: [place] [facility]MS.[facility] [place] 06/23/2018 [id number] Riky, Farhat Ambulatory BMSBuilding: [place] Chi BMS.CF.[facility] Repository 06/23/2018 [id number] Riky, Farhat Ambulatory BMSBuilding: [place] Chi BMS.CF.[facility] Repository 06/23/2018 [id number] Riky, Farhat Ambulatory BMSBuilding: [place] Chi BMS.CF.[facility] Repository 06/19/2018 [id number] Ambulatory BMSBuilding: [place] [facility] Repository 06/18/2018/06/23/20 [id number] White, Inpatient [place] 18 Afshan Encounter [facility] ding:PCURoom Repository : LEF961Qfo: 1 06/18/2018 [id number] White, Ambulatory BMSBuilding: [place] Afshan BMS.CF.[facility] Repository 06/18/2018 [id number] White, Ambulatory BMSBuilding: [place] Afshan BMS.[facility] Repository 06/18/2018 [id number] [place], Ambulatory BMSBuilding: [place] Afshan BMS.CF.[facility] Repository 06/18/2018 [id number] White, Ambulatory BMSBuilding: [place] Afshan BMS.CF.[facility] Repository 06/18/2018 [id number] White, Ambulatory BMSBuilding: [place] Afshan BMS.CF.[facility] Repository 06/18/2018 [id number] White, Ambulatory BMSBuilding: [place] [facility] 06/18/2018 [id number] White, Ambulatory BMSBuilding: [place] BMS.CF.[facility] Repository 06/18/2018 [id number] White, Ambulatory BMSBuilding: [place] BMS.CF.[facility] Repository 06/18/2018 [id number] White, Ambulatory BMSBuilding: [place] Afshan BMS.[facility] Repository 06/18/2018 [id number] White, Ambulatory BMSBuilding: [place] Afshan BMS.[facility] Repository 06/18/2018 [id number] White, Ambulatory BMSBuilding: [place] BMS.CF.[facility] Repository 06/18/2018 [id number] White, Ambulatory BMSBuilding: [place] BMS.CF[facility] Repository 06/18/2018 [id number] White, Ambulatory BMSBuilding: [place] BMS..[facility] Repository 06/18/2018 [id number] White, Ambulatory BMSBuilding: [place] BMS.[facility] Repository 06/18/2018 [id number] White, Ambulatory BMSBuilding: [place] BMS..[facility] Repository 06/18/2018 [id number] White, Ambulatory BMSBuilding: [place] BMS.[facility] Repository 06/18/2018/06/23/20 [id number] Ambulatory BMSBuilding: [place] 18 [facility] Repository 06/18/2018/06/23/20 [id number] Ambulatory BMSBuilding: [place] 18 [facility] Repository 06/18/2018 [id number] Ambulatory BMSBuilding: [place] BMS.[facility] Repository 06/17/2018/06/17/20 [id number] Ambulatory BMSBuilding: [place] 18 BMS.[facility] Repository 06/15/2018 [id number] Ambulatory BMSBuilding: [place] BMS.[facility] Repository 06/12/2018/06/12/20 [id number] Meka Glez [address] ding:[facility] Repository 06/12/2018/06/12/[id number] ding:[facility] Repository 06/12/2018 [id number] Ambulatory [address] [place] [address] Repository 06/12/2018 [id number] Ambulatory [address] [place] [address] Repository 06/01/2018 [id number] Ambulatory [place] [facility] ding:[facility] Repository 05/01/2018/05/01/20 [id number] Ambulatory BMSBuilding: [place] 18 BMS.[facility] Repository 04/29/2018/04/29/20 [id number] Newton Meka[address] ding:[facility] Repository 04/29/2018 [id number] Ambulatory [address] [place] [address] Repository 03/19/2018 [id number] [facility] 03/18/2018/03/18/20 [id number] Ambulatory BMSBuilding: [place] 18 BMS.[facility] Repository 02/20/2018/02/21/[id number] NewtonBryana [address] ding:[facility] Repository 02/20/2018 [id number] Ambulatory [address] [place] [address] Repository 01/28/2018/01/29/20 [id number] Ambulatory BMSBuilding: [place] 18 BMS.[facility] Repository 01/20/2018/01/21/20 [id number] Ambulatory BMSBuilding: [place] 18 BMS.[facility] Repository 12/29/2017/12/30/[id number] Meka Glez [address] ding:[facility] Repository 12/12/2017/12/13/19 [id number] Meka Glez [address] ding:[facility] Repository 12/10/2017 [id number] [facility] Repository 12/02/2017 [id number] Ambulatory Building:[facility] Repository 10/27/2017 [id number] Ambulatory [facility] ding:[facility] Repository 10/27/2017 [id number] Ambulatory BMSBuilding: [place] BMS.CF.[facility] Repository 10/15/2017/10/16/19 [id number] Ambulatory BMSBuilding: [place] 18 BMS.[facility] Repository 10/14/2017 [id number] Ambulatory [facility] ding:BI Repository 09/25/2017/09/25/19 [id number] Ambulatory BMSBuilding: [place] 18 BMS.[facility] Repository 09/11/2017/09/11/19 [id number] Ambulatory BMSBuilding: [place] 18 BMS.[facility] Repository 09/10/2017 [id number] Ambulatory BMSBuilding: [place] BMS.[facility] Repository 08/21/2017/08/21/19 [id number] Newton Meka [address] ding:[facility] Repository 08/13/2017 [id number] Ambulatory BMSBuilding: [place] BMS.[facility] Repository 08/07/2017 [id number] Ambulatory [facility] ding: Repository 07/31/2017/08/02/20 [id number] JAYLENE, Inpatient [place] B[facility]bara [facility] Other [facility] Repository 07/31/2017/08/02/20 [id number] Aleida MARIEE Inpatient [place] [address] SUKHJINDER [address] [facility] MEDICAL Repository CENTERBuildi nRoom: 5417Bed: 07/29/2017 [id number] Ambulatory BMSBuilding: [place] BMS.[facility] Repository FUNCTIONAL STATUS FUNCTIONAL STATUS No Functional Status Records FoundEQUIPMENT EQUIPMENT No Equipment Records FoundPAYERS PAYERS ENCOUNTER GUARANTOR PAYER SUBSCRIBER SOURCE 07/28/2018 IRIS Tucker Primary IRIS Tucker OHIP Practices ROESCHDOB: Insurance:Hum//Med[employer] ROESCHDOB: Repository re Adv PlanPoly [id number] Faraz Mccracken Number: Faraz Mccracken StreetLoudonvwestern [facility] [id number] StreetLoudonvwestern reserve hospital [place], [place] [address]Hqu: Date:5510-31-74Bglc [place], [place] [address]Csx: Name:FPO Box (HP)Tel: [phone] [place] [address] ) [phone] (OR) [address]WP: 07/28/2018 Secondary IRIS S OHIP Practices Insurance:Humana ROESCHDOB: Repository [facility] [id number] Number: Faraz Mccracken [id number] StreetLoudnew ulm medical center Date:2007-06-24 - [place], [place] [address]Erl: [id number] ~(4 Name:[address] ) [address] [place] [address] [id number]: 07/27/2018 YOSHI A Primary IRIS Tucker [place] [id number] E Insurance:HUMANA FLORIDALMA ROESCHDOB: Community BUSTLE MEDICAREPolicy [id number] Medical Center South, Number: Repository [place] [address]Fls: [id number] Date:8037-67-87KG BOX () [address] [place] [phone]: 07/27/2018 Secondary NOT GIVENUNK [place] Insurance:SELF PAY [facility] Number: Effective Repository Date:2018-07-16 07/27/2018 YOSHI A Primary IRIS Tucker [place] [id number] E Insurance:HUMANA FLORIDALMA ROESCHDOB: Community BUSTLE MEDICAREPolicy [id number] Medical Center South, Number: Repository [place] [address]Otv: [id number] Date:2407-25-67DJ BOX (HP) [address] [place] [phone]: 07/27/2018 Secondary NOT GIVENUNK [place] Insurance:SELF PAY [facility] Number: Effective Repository Date:2018-07-27 07/15/2018 YOSHI Watts Primary IRIS Rivas [id number] E Insurance:HUMANA GOLD ROESCHDOB: [facility] BUSTLE MEDICARELancaster Rehabilitation Hospitaly [id number] Medical Center South, Number: [place]ository [place] [address]Ytc: [id number] Date:2055-10-36AY BOX () [address] [place] [phone]: 07/15/2018 Secondary IRIS Tucker [place] Insurance:[facility] ROESCHDOB: [facility] AUTOCancer Treatment Centers Of America Number: [id number] Hospital [id number] Repository Date: [facility], [place] [address]BP: 07/15/2018 Tertiary NOT GIVENUNK [place] Insurance:SELF PAY [facility] Number: Effective Repository Date:2018-07-15 07/14/2018 YOSHI Watts Primary IRIS Rivas [id number] E Insurance:HUMANA GOLD ROESCHDOB: [facility] BUSTLE MEDICAREPolicy [id number] Medical Center South, Number: Repository [place] [id number]: [id number] Date:6849-52-29ZU BOX () [address] [place] [phone]: 07/14/2018 Secondary NOT GIVENUNK [place] Insurance:SELF PAY [facility] Number: Effective Repository Date:2018-07-08 07/08/2018 YOSHI Watts Primary IRIS Christensenoster [id number] E Insurance:HUMANA GOLD ROESCHDOB: [facility] BUSTLE MEDICAREPolicy [id number] Medical Center South, Number: Repository [place] [address]Maj: [id number] Date:8520-27-60ZM BOX () [address] [place] [phone]: 07/08/2018 Secondary NOT GIVENUNK [place] Insurance:SELF PAY [facility] INSURANCEPolicy Hospital Number: Effective Repository Date:2018-07-07 06/30/2018 YOSHI Watts Primary IRIS Christensenoster [id number] E Insurance:HUMANA FLORIDALMA ROESCHDOB: Community BUSTLE MEDICAREPolicy [id number] Medical Center South, Number: Repository [place] [address]Xjo: [id number] Date:9482-30-80XX BOX () [address] [place] [phone]: 06/30/2018 Secondary IRIS S [place] Insurance:STATE FARM ROESCHDOB: Community AUTOPolicy Number: [id number] Hospital [id number] Repository Date: [place] [address]EH: 06/30/2018 Tertiary NOT GIVENUNK [place] Insurance:SELF PAY [facility] INSURANCELancaster Rehabilitation Hospitaly Hospital Number: Effective Repository Date:2018-06-26 06/29/2018 YOSHI Watts Primary IRIS Rivas [id number] E Insurance:STATE FARM ROESCHDOB: Community BUSTLE AUTOPolicy Number: [id number] Medical Center South, [id number] Repository [place] [address]Dlq: Date: N [facility] () [place] [address]FV: 06/29/2018 Secondary IRIS S [place] Insurance:HUMANA FLORIDALMA ROGLENYSCHDOB: Community MEDICAREPolicy [id number] Hospital Number: Repository [id number] Date:2647-27-01EY [address] [place] [phone]: 06/29/2018 Tertiary NOT GIVENUNK [place] Insurance:SELF PAY Community INSURANCEPoly Hospital Number: Effective Repository Date:2018-06-29 06/29/2018 YOSHI Watts Primary IRIS Christensenoster [id number] E Insurance:STATE FARM ROESCHDOB: Community BUSTLE AUTOPolicy Number: [id number] Medical Center South, [id number] [place]ository [place] [address]Yxj: Date: N [facility] () [place] [address]IX: 06/29/2018 Secondary IRIS S [place] Insurance:HUMANA GOLD ROESCHDOB: Community MEDICAREPolicy [id number] Hospital Number: Repository [id number] Date:0944-74-26OE [address] [place] [phone]: 06/29/2018 Tertiary NOT GIVENUNK [place] Insurance:SELF PAY [facility]ANCECan[facility] Number: Effective Repository Date:2018-06-17 06/27/2018 YOSHI Watts Primary IRIS Tucker [place] [id number] Insurance:[facility]E ROESCHDOB: [facility] BUSTexas Health [facility] Number: [id number] Medical Center South, [id number] Repository [place] [address]Awp: Date: N [facility] () [place] [address]RD: 06/27/2018 Secondary IRIS S [place] Insurance:HUMANA GOLD ROESCHDOB: Community MEDICAREPolicy [id number] Hospital Number: Repository [id number] Date:5635-29-47[address] [place] [phone]: 06/27/2018 Tertiary NOT GIVENUNK [place] Insurance:SELF PAY [facility]Can[facility] Number: Effective Repository Date:2018-06-27 06/25/2018 YOSHI Watts Primary IRIS Tucker [place] [id number] E Insurance:HUMANA GOLD ROESCHDOB: [facility]JO[facility] MEDICARECancer Treatment Centers Of [facility] [id number] Medical Center South, Number: Repository [place] [address]Ujy: [id number] Date:7962-42-84RU BOX (JG) [address] [place] [phone]: 06/25/2018 Secondary IRIS S [place] Insurance:STATE FARM ROESCHDOB: Community AUTOPolicy Number: [id number] Hospital [id number] Repository Date: [place], [place] [address]TP: 06/25/2018 Tertiary NOT GIVENUNK [place] Insurance:SELF PAY [facility]Can[facility] Number: Effective Repository Date:2018-06-25 06/23/2018 YOSHI Watts Primary IRIS Rivas [id number] E Insurance:[facility] F[facility] RONEDADOB: Community BUSTLE AUTOPolicy Number: [id number] Medical Center South, [id number] Repository [place] [address]Lnj: Date: N [facility] () [place] [address]XC: 06/23/2018 Secondary IRIS S [place] Insurance:HUMANA GOLD ROGLENYSCHDOB: Community MEDICAREPolicy [id number] Hospital Number: Repository [id number] Date:5486-63-40CU [address] [place] [phone]: 06/23/2018 Tertiary NOT GIVENUNK [place] Insurance:SELF PAY Community [facility] Number: Effective Repository Date:2018-06-23 06/23/2018 YOSHI Watts Primary IRIS Rivas [id number] E Insurance:HUMANA FLORIDALMA GLENYSCHDOB: Community BUSTLE MEDICAREPolicy [id number] [facility], Number: Repository [place] [address]Ncc: [id number] Date:5061-77-43CH BOX (GI) [address] [place] [address]BR: 06/23/2018 Secondary IRIS S [place] Insurance:STATE FARM ROPREMB: Community AUTOPolicy Number: [id number] Hospital [id number] Repository Date: [place], [place] [address]SN: 06/23/2018 Tertiary NOT GIVENUNK [place] Insurance:SELF PAY Community [facility]Policy [facility] Number: Effective Repository Date:2018-06-23 06/23/2018 YOSHI Watts Primary IRIS Rivas [id number] E Insurance:STATE FARM ROESCHDOB: Community BUSTLE AUTOPolicy Number: [id number] Medical Center South, [id number] [place]ository [place] [address]Ayw: Date: N [facility] () [place] [address]OD: 06/23/2018 Secondary IRIS S [place] Insurance:HUMANA GOLD ROESCHDOB: Community MEDICAREPolicy [id number] Hospital Number: Repository [id number] Date:2841-50-02BP [address] [address]ET: 06/23/2018 Tertiary NOT GIVENUNK [place] Insurance:SELF PAY Community [facility] Number: Effective Repository Date:2018-06-23 06/23/2018 YOSHI Watts Primary IRIS Rivas [id number] E Insurance:[facility] Community BUSTLE AUTOPolicy Number: [id number] Medical Center South, [id number] [place]ository [place] [address]Stx: Date: N [facility] () [place] [address]HC: 06/23/2018 Secondary IRIS S [place] Insurance:HUMANA FLORIDALMA ROGLENYSCHDOB: Community MEDICAREPolicy [id number] Hospital Number: Repository [id number] Date:0391-16-73JS [address] [address]OM: 06/23/2018 Tertiary NOT GIVENUNK [place] Insurance:SELF PAY Community INS[facility]ANCEPoly [facility] Number: Effective Repository Date:2018-06-23 06/23/2018 YOSHI Watts Primary IRIS Christensenoster [id number] E Insurance:[place] ROCHDOB: Community BUSTLE AUTOPolicy Number: [id number] Medical Center South, [id number] [place]ository [place] [address]Sie: Date: N [facility] () [place] [address]ZO: 06/23/2018 Secondary IRIS S [place] Insurance:HUMANA GOLD ROESCHDOB: Community [facility]ancer [facility] [id number] Hospital Number: Repository [id number] Date:5423-69-87RD [address] [place] [address]DI: 06/23/2018 Tertiary NOT GIVENUNK [place] Insurance:SELF PAY [facility] Number: Effective Repository Date:2018-06-23 06/19/2018 YOSHI Watts Primary IRIS Tucker [place] [id number] E Insurance:HUMANA GOLD ROESCHDOB: [facility] BUSTLE MEDICARELancaster Rehabilitation Hospitaly [id number] Medical Center South, Number: Repository [place] [address]Eji: [id number] Date:5455-55-90BZ BOX () [address] [place] [address]GC: 06/19/2018 Secondary NOT GIVENUNK [place] Insurance:SELF PAY [facility] Number: Effective Repository Date:2018-06-19 06/18/2018 YOSHI Watts Primary IRIS Rivas [id number] E Insurance:HUMANA GOLD ROESCHDOB: [facility] MEDICARECancer [facility] [id number] Medical Center South, Number: [place]ository [place] [address]Lbt: [id number] Date:5480-03-55AU BOX () [address] [place] [address]OX: 06/18/2018 Secondary IRIS S [place] Insurance:STATE FARM ROESCHDOB: Community AUTOPolicy Number: [id number] Hospital [id number] Repository Date: [facility] [place] [address]WL: 06/18/2018 Tertiary NOT GIVENUNK [place] Insurance:SELF PAY Community [facility] Number: Effective Repository Date:2018-06-18 06/18/2018 YOSHI Watts Primary IRIS Christensenoster [id number] E Insurance:STATE FARM ROESCHDOB: Community BUSTLE AUTOPolicy Number: [id number] Medical Center South, [id number] [place]ository [place] [address]Ayz: Date: N [facility] () [place] [address]AG: 06/18/2018 Secondary IRIS S [place] Insurance:HUMANA GOLD ROESCHDOB: Community MEDICAREPolicy [id number] Hospital Number: Repository [id number] Date:8770-68-39WA [address] [address]CW: 06/18/2018 Tertiary NOT GIVENUNK [place] Insurance:SELF PAY [facility] Number: Effective Repository Date:2018-06-18 06/18/2018 YOSHI Watts Primary IRIS Christensenoster [id number] E Insurance:HUMANA GOLD ROESCHDOB: Community BUSTLE MEDICAREPoly [id number] Medical Center South, Number: Repository [place] [address]Hap: [id number] Date:0421-55-73JS BOX ) [address] [place] [address]OM: 06/18/2018 Secondary IRIS S [place] Insurance:STATE FARM ROESCHDOB: Community AUTOPolicy Number: [id number] Hospital [id number] Repository Date: [place], [place] [address]TG: 06/18/2018 Tertiary NOT GIVENUNK [place] Insurance:SELF PAY [facility] Number: Effective Repository Date:2018-06-18 06/18/2018 YOSHI Watts Primary IRIS [place]ensenoster [id number] E Insurance:HUMANA GOLD ROESCHDOB: Community BUSTLE MEDICAREPoly [id number] Medical Center [facility], Number: [place]ository [place] [address]Wor: [id number] Date:0705-69-32EM BOX () [address] [place] [address]FY: 06/18/2018 Secondary IRIS S [place] Insurance:STATE FARM ROCHDOB: Community AUTOPolicy Number: [id number] Hospital [id number] Repository Date: [place], [place] [address]EV: 06/18/2018 Tertiary NOT GIVENUNK [place] Insurance:SELF PAY [facility] Number: Effective Repository Date:2018-06-18 06/18/2018 YOSHI Watts Primary IRIS Tucker [place] [id number] E Insurance:HUMANA GOLD ROESCHDOB: Community BUSTLE MEDICARELancaster Rehabilitation Hospitaly [id number] Medical Center South, Number: [place]ository [place] [address]Wsi: [id number] Date:1079-86-36BA BOX () [address] [place] [address]VR: 06/18/2018 Secondary IRIS S [place] [facility] AUTOPolicy Number: [id number] Hospital [id number] Repository Date: [place], [place] [address]BJ: 06/18/2018 Tertiary NOT GIVENUNK [place] Insurance:SELF PAY [facility] Number: Effective Repository Date:2018-06-18 06/18/2018 YOSHI Watts Primary IRIS Tucker [place] [id number] E Insurance:HUMANA GOLD ROESCHDOB: Community BUSTLE MEDICAREPolicy [id number] Medical Center South, Number: [place]ository [place] [address]Ena: [id number] Date:2341-83-53EF BOX () [id number] [place] [address]JU: 06/18/2018 Secondary IRIS S [place] Insurance:STATE FARM ROESCHDOB: Community AUTOPolicy Number: [id number] Hospital [id number] Repository Date: [place] [address]SN: 06/18/2018 Tertiary NOT GIVENUNK [place] Insurance:SELF PAY [facility] Number: Effective Repository Date:2018-06-18 06/18/2018 YOSHI Watts Primary IRIS Rivas [id number] E Insurance:HUMANA GOLD ROESCHDOB: Community BUSTLE MEDICAREPolicy [id number] Medical Center South, Number: [place]ository [place] [address]Kgz: [id number] Date:9976-15-51QN BOX () [id number] [place] [address]DR: 06/18/2018 Secondary IRIS S [place] Insurance:STATE FARM ROCHDOB: Community AUTOPolicy Number: [id number] Hospital [id number] Repository Date: [place], [place] [address]VE: 06/18/2018 Tertiary NOT GIVENUNK [place] Insurance:SELF PAY [facility] Number: Effective Repository Date:2018-06-18 06/18/2018 YOSHI Watts Primary IRIS Rivas [id number] E Insurance:HUMANA GOLD ROGLENYSCHDOB: Community BUSTLE MEDICARECancer Treatment Centers Of [facility] [id number] Medical Center South, Number: Repository [place] [address]Guv: [id number] Date:9522-83-02ZV BOX () [id number] [place] [address]CA: 06/18/2018 Secondary IRIS S [place] Insurance:STATE FARM ROESCHDOB: Community AUTOPolicy Number: [id number] Hospital [id number] Repository Date: [place] [address]IL: 06/18/2018 Tertiary NOT GIVENUNK [place] Insurance:SELF PAY Community [facility] Number: Effective Repository Date:2018-06-18 06/18/2018 YOSHI Watts Primary IRIS Tucker [place] [id number] E Insurance:HUMANA GOLD ROESCHDOB: Community BUSTLE MEDICAREPolfloyd county medical center [id number] Medical Center South, Number: [place]ository [place] [address]Yej: [id number] Date:8385-37-97WQ BOX () [address] [place] [address]VX: 06/18/2018 Secondary IRIS S [place] Insurance:[facility]: [facility] AUTOPolic Number: [id number] Hospital [id number] Repository Date: [place], [place] [address]KK: 06/18/2018 Tertiary NOT GIVENUNK [place] Insurance:SELF PAY [facility] Number: Effective Repository Date:2018-06-18 06/18/2018 YOSHI Watts Primary IRIS Christensenoster [id number] E Insurance:HUMANA GOLD ROESCHDOB: [facility] BUSTLE MEDICAREPolicy [id number] Medical Center South, Number: [place]ository [place] [address]Gld: [id number] Date:2046-75-86GH BOX () [address] [place] [address]EI: 06/18/2018 Secondary IRIS S [place] [facility]: [facility] AUTOPolicy Number: [id number] Hospital [id number] Repository Date: [place], [place] [address]YO: 06/18/2018 Tertiary NOT GIVENUNK [place] Insurance:SELF PAY [facility] Number: Effective Repository Date:2018-06-18 06/18/2018 YOSHI Watts Primary IRIS Christensenoster [id number] E Insurance:HUMANA GOLD ROESCHDOB: [facility] BUSTLE MEDICAREPolicy [id number] Medical Center South, Number: Repository [place] [address]Mjn: [id number] Date:4507-79-89KM BOX () [id number] [place] [address]WI: 06/18/2018 Secondary IRIS S [place] Insurance:STATE FARM ROESCHDOB: Community AUTOPolicy Number: [id number] Hospital [id number] Repository Date: [place] [address]ZD: 06/18/2018 Tertiary NOT GIVENUNK [place] Insurance:SELF PAY [facility] Number: Effective Repository Date:2018-06-18 06/18/2018 YOSHI Watts Primary IRIS Tucker [place] [id number] E Insurance:HUMANA GOLD ROESCHDOB: Community BUSTLE MEDICAREPolicy [id number] Medical Center South, Number: [place]ository [place] [address]Blu: [id number] Date:4241-48-61IH BOX () [address] [place] [address]PF: 06/18/2018 Secondary IRIS S [place] Insurance:STATE FARM ROESCHDOB: Community AUTOPolicy Number: [id number] Hospital [id number] Repository Date: [place], [place] [address]YA: 06/18/2018 Tertiary NOT GIVENUNK [place] Insurance:SELF PAY [facility] Number: Effective Repository Date:2018-06-18 06/18/2018 YOSHI Watts Primary IRIS Tucker [place] [id number] E Insurance:HUMANA GOLD ROESCHDOB: Community BUSTLE MEDICAREPolicy [id number] Medical Center South, Number: [place]ository [place] [address]Ksu: [id number] Date:3250-88-24FW BOX () [id number] [place] [address]VC: 06/18/2018 Secondary IRIS S [place] Insurance:STATE FARM ROESCHDOB: Community AUTOPolicy Number: [id number] Hospital [id number] Repository Date: [place], [place] [address]SM: 06/18/2018 Tertiary NOT GIVENUNK [place] Insurance:SELF PAY Community [facility] Number: Effective Repository Date:2018-06-18 06/18/2018 YOSHI Watts Primary IRIS Rivas [id number] E Insurance:HUMANA GOLD ROESCHDOB: Community BUSTLE MEDICAREPolicy [id number] Medical Center South, Number: [place]ository [place] [address]Xnw: [id number] Date:4469-12-24IU BOX () [address] [place] [address]FF: 06/18/2018 Secondary IRIS S [place] Insurance:STATE FARM [facility]ENTERCHD[facility]: [facility] AUTOPolicy Number: [id number] Hospital [id number] Repository Date: [place], [place] [address]ZC: 06/18/2018 Tertiary NOT GIVENUNK [place] Insurance:SELF PAY Community [facility] Number: Effective Repository Date:2018-06-18 06/18/2018 YOSHI Watts Primary IRIS Rivas [id number] E Insurance:HUMANA GOLD ROESCHDOB: Community BUSTLE MEDICARECancer Treatment Centers Of America [id number] Medical Center South, Number: [place]ository [place] [address]Znk: [id number] Date:5217-40-01NZ BOX () [address] [place] [address]XT: 06/18/2018 Secondary IRIS S [place] Insurance:STATE FARM [facility] Community AUTOPolicy Number: [id number] Hospital [id number] Repository Date: [place], [place] [address]CF: 06/18/2018 Tertiary NOT GIVENUNK [place] Insurance:SELF PAY Community [facility] Number: Effective Repository Date:2018-06-18 06/18/2018 YOSHI Watts Primary IRIS Tucker [place] [id number] E Insurance:HUMANA GOLD ROESCHDOB: Community BUSTLE MEDICAREPolic [id number] Medical Center South, Number: [place]ository [place] [address]Uto: [id number] Date:6709-91-37KQ BOX () [address] [place] [address]BM: 06/18/2018 Secondary IRIS S [place] Insurance:[facility] ANSONDOB: Community AUTOPolic Number: [id number] Hospital [id number] Repository Date: [place] [address]QS: 06/18/2018 Tertiary NOT GIVENUNK [place] Insurance:SELF PAY [facility] Number: Effective Repository Date:2018-06-18 06/18/2018 YOSHI Watts Primary IRIS Tucker [place] [id number] E Insurance:HUMANA GOLD ROESCHDOB: [facility] BUSTLE MEDICAREPolicy [id number] Medical Center South, Number: [place]ository [place] [address]Gig: [id number] Date:2915-64-22NE BOX () [address] [place] [address]CY: 06/18/2018 Secondary IRIS S [place] Insurance:[facility]: [facility] AUTOPolicy Number: [id number] Hospital [id number] Repository Date: [place], [place] [address]RC: 06/18/2018 Tertiary NOT GIVENUNK [place] Insurance:SELF PAY [facility] Number: Effective Repository Date:2018-06-18 06/18/2018 YOSHI Watts Primary IRIS Tucker [place] [id number] E Insurance:HUMANA GOLD ROESCHDOB: [facility] BUSTLE MEDICAREPolicy [id number] Medical Center South, Number: [place]ository [place] [address]Bdy: [id number] Date:9916-70-10IF BOX () [address] [place] [address]TL: 06/18/2018 Secondary IRIS [place] Insurance:STATE FARM ROESCHDOB: Community AUTOPolicy Number: [id number] Hospital [id number] Repository Date: [facility], [place] [address]ET: 06/18/2018 Tertiary NOT GIVENUNK [place] Insurance:SELF PAY [facility] Number: Effective Repository Date:2018-06-18 06/18/2018 YOSHI Watts Primary IRIS Christensenoster [id number] E Insurance:HUMANA GOLD ROGLENYSCHDOB: [facility] BUSTLE MEDICAREPolfloyd county medical center [id number] Medical Center South, Number: [place]ository [place] [address]Zhf: [id number] Date:7310-86-78OB BOX () [address] [place] [address]UT: 06/18/2018 Secondary NOT GIVENUNK [place] Insurance:SELF PAY [facility] Number: Effective Repository Date:2018-06-18 06/18/2018 YOSHI Watts Primary IRIS Rivas [id number] E Insurance:HUMANA GOLD ROESCHDOB: [facility] BUSTLE MEDICARECancer Treatment Centers Of America [id number] Medical Center South, Number: [place]ository [place] [address]Gdf: [id number] Date:9832-25-45CA BOX () [address] [place] [address]SY: 06/18/2018 Secondary NOT GIVENUNK [place] Insurance:SELF PAY [facility] Number: Effective Repository Date:2018-06-18 06/17/2018 YOSHI Watts Primary IRIS Rivas [id number] E Insurance:HUMANA GOLD ROGLENYSCHDOB: [facility] BUSTLE MEDICARECancer [facility] [id number] Medical Center South, Number: [place]ository [place] [address]Nef: [id number] Date:7340-34-62YH BOX (HP) 44741LEEEMVJYW[address] [place] [address]GI: 06/17/2018 Secondary NOT GIVENUNK [place] Insurance:SELF PAY [facility] Number: Effective Repository Date:2018-06-17 06/15/2018 YOSHI Watts Primary IRIS Rivas [id number] E Insurance:HUMANA GOLD ROESCHDOB: [facility] BUSTLE MEDICAREPolicy [id number] Medical Center South, Number: [place]ository [place] [address]Ubd: [id number] Date:9286-91-45TI BOX () [address] [place] [address]CF: 06/15/2018 Secondary NOT GIVENUNK [place] Insurance:SELF PAY [facility] Number: Effective Repository Date:2018-06-15 06/12/2018 IRIS Tucker Primary IRIS Cuevas ROESCHDOB: Insurance:HUMANAPolic ROESCHDOB: [facility] E y Number: Effective [id number] System BUSTLE Date:2018-06-12 [facility] 4172-46-39[place]mhuGl[place], [place] Name:CD:[id number] [facility] [address]Lpi: [address] [place], [place] [address]Tel: [phone]: (800) (HP) [phone] (HP) () 06/12/2018 IRIS Tucker Primary IRIS Cuevas ROESCHDOB: Insurance:HUMANAPolic ROESCHDOB: [facility] E y Number: Effective [id number] System BUSTLE Date:2018-06-12 [facility] 2537-82-84MjuuGladstone, [place] Name:CD:[id number] [facility] [address]Ose: [address] [place], [place] [address]Tel: [phone]: (800) (HP) [phone] (HP) () 06/12/2018 IRIS [facility]: Insurance[facility] Hospitals E ChoicePolicy Number: [id number] Repository BUSTLE [id number] E [facility], Date:Plan Name:[place], [place] [id number]: [place] [phone]: (GX) (HP) 06/12/2018 [facility] ChoiceLancaster Rehabilitation Hospitaly Number: [id number] Repository BUSTLE [id number] E [facility], Date:Plan Name:[place], [place] [id number]: [place] [id number]: (TB) (HP) 06/01/2018 YOSHI Watts Primary NOT GIVENMAURIZIO Rivas [id number] E Insurance:SELF PAY [facility], Number: Effective [place]ository [place] [address]Qoq: Date:2018-01-20 () 05/01/2018 YOSHI Watts Primary IRIS Rivas [id number] E Insurance:[facility]: Community BUSTLE MEDICAREPolicy [id number] Medical Center South, Number: [place]ository [place] [address]Dbr: [id number] Date:4589-51-46KU BOX () [id number] [place] [address]NL: 05/01/2018 Secondary NOT GIVENUNK [place] Insurance:SELF PAY [facility] Number: Effective Repository Date:2018-05-01 04/29/2018 IRIS Cuevas [facility] Insurance:HUMANAPol ROCHDOB: [facility] E y Number: Effective [id number] System BUSTLE Date:2018-04-29 [facility] 9352-54-72FfkcGladstone, [place] Name::[id number] [facility] [address]Pee: [address] [place] [address]Chi: [id number]: (800) (EK) [phone] (HP) () 04/29/2018 IRIS Deleon [facility]: Insurance:Humana Gold [facility]: [facility] Number: [id number] Repository [facility] [id number] E [facility], Date:Plan Name:[place], [place] [address]Hjm: MD [phone]: (NU) (HP) 03/19/2018 YOSHI Watts Primary IRIS Rivas [id number] E Insurance:HUMANA GOLD [facility] CENTERCHDOB: Community BUSTLE MEDICAREPolicy [id number] Medical Center South, Number: [place]ository [place] [address]Xqo: [id number] Date:7142-27-29LG BOX (HP) [address] [place] [address]TM: 03/19/2018 Secondary NOT GIVENUNK [place] Insurance:SELF PAY [facility] Number: Effective Repository Date:2018-03-18 03/18/2018 YOSHI Rivas [id number] E Insurance:HUMANA GOLD [facility] CENTERCHDOB: Community BUSTLE MEDICAREPolicy [id number] Medical Center South, Number: Repository [place] [address]Cry: [id number] Date:7528-77-36ZE BOX () [address] [place] [address]SF: 03/18/2018 Secondary NOT GIVENUNK [place] Insurance:SELF PAY [facility] Number: Effective Repository Date:2018-02-16 02/20/2018 IRIS Cuevas [facility]B: Insurance:HUMANAPolic ROESCHDOB: [facility] E y Number: Effective [id number] System BUSTLE Date:2018-02-20 BUSTLE [facility], 8677-62-31KpzkGlad[place], [place] [id number]: Name::[id number] BOX [place] [phone]: [address] [place] [address] () [phone]: [phone]) () [phone] () 02/20/2018 IRIS SIMMONS [facility]: Insurance:Humana On license of [facility]B: [facility] PartnersPolfloyd county medical center Number: [id number] Repository [facility] [id number] [facility], Date:Plan Name:[place], [place] [id number]: [place] [phone]: (GQ) () 01/28/2018 YOSHI Watts Primary IRIS Rivas [id number] E Insurance:HUMANA [facility]: Community BUSTLE MEDICAREPolicy [id number] Medical Center South, Number: Repository [place] [address]Dwx: [id number] Date:7194-12-30SI BOX () [address] [place] [address]AO: 01/28/2018 Secondary NOT GIVENUNK [place] Insurance:SELF PAY [facility] Number: Effective Repository Date:2017-12-18 01/20/2018 YOSHI Watts Primary IRIS Rivas [id number] E Insurance:HUMANA GOLD ROESCHDOB: Community BUSTLE MEDICAREPolicy [id number] Medical Center South, Number: [place]ository [place] [address]Epv: [id number] [phone] Date:6771-72-60UY BOX -6 (HP) [address] [place] [address]RV: 01/20/2018 Secondary NOT GIVENUNK [place] Insurance:SELF PAY [facility] Number: Effective Repository Date:2018-01-20 12/29/2017 IRIS S Primary IRIS Cuevas ROESCHDOB: Insurance:HUMANAPolic ROESCHDOB: [facility] E y Number: Effective [id number] System BUSTLE Date:2017-12-29 [facility], 8630-84-38HhnaGlad[place], [place] [id number]: Name:CD:[id number] [facility] [id number]: [address] [place] [address] (HP) [phone]: (800) (HP) [phone] (WP) 12/12/2017 IRIS Tucker Primary IRIS Cuevas ROESCHDOB: Insurance:HUMANAPolic ROESCHDOB: [facility] E y Number: Effective [id number] System BUSTLE Date:2017-12-12 [facility], 5001-44-37HdyxGl[place], [place] [id number]: Name:CD:[id number] [facility] [id number]: [address] [place] [address] (HP) [phone]: (800) (HP) [phone] (WP) 12/10/2017 IRIS S Primary IRIS Cuevas ROESCHDOB: Insurance:HUMANAPolic ROESCHDOB: [facility] E y Number: Effective [id number] System BUSTLE Date:2017-12-10 [facility] [id number], [place] [id number]: Name:[id number] BOX [place] [id number]: [address] [place] [address] (HP) [phone]: [phone] (HP) [phone] () 12/02/2017 IRIS Tucker Primary [facility]: [facility] ROESCHDOB: Spencer E HUMANA O [facility] [id number] [facility] Number: E [facility], [id number] [facility], Repository [place] [address]Juf: Date:Plan Name:CARE [place] [address]Uor: (EG) (HP) 10/27/2017 YOSHI Watts Primary IRIS Rivas [id number] E Insurance:[facility] Community BUSTLE MEDICAREPolicy [id number] [facility], Number: Repository [place] [address]Ikn: [id number] [phone] Date:8527-83-20KB BOX -[address] (HP) [address] [place] [id number]: 10/27/2017 Secondary NOT GIVENUNK [place] Insurance:SELF PAY [facility] Number: Effective Repository Date:2017-09-23 10/27/2017 YOSHI Watts Primary IRIS Rivas [id number] E Insurance:[facility]NA [facility] Community BUSTLE MEDICAREPolicy [id number] Medical Center South, Number: [place]ository [place] [address]Yzd: [id number] [phone] Date:3332-04-63CK BOX -[address] (HP) [address] [place] [id number]: 10/27/2017 Secondary NOT GIVENUNK [place] Insurance:SELF PAY [facility] Number: Effective Repository Date:2017-10-27 10/15/2017 YOSHI Watts Primary IRIS Tucker Evelyn [id number] E Insurance:HUMANA GOLD ROESCHDOB: [facility] BUSTLE MEDICAREPolicy [id number] Medical Center South, Number: Repository [place] [address]Wms: [id number] [phone] Date:5703-46-73IX [address] (HP) [id number] [place] [phone]: 10/15/2017 Secondary NOT GIVENUNK [place] Insurance:SELF PAY [facility] Number: Effective Repository Date:2017-09-24 10/14/2017 YOSHI Watts Primary IRIS Tucker Evelyn [id number] E Insurance:HUMANA GOLD ROESCHDOB: Community BUSTLE MEDICAREPolicy [id number] Medical Center South, Number: Repository [place] [address]Hny: [id number] [phone] Date:6897-23-71IO [address] -[address] (HP) [address] [place] [phone]: 10/14/2017 Secondary NOT GIVENUNK [place] Insurance:SELF PAY [facility] Number: Effective Repository Date:2017-09-23 09/25/2017 YOSHI Watts Primary IRIS Tucker Evelyn [id number] E Insurance:HUMANA GOLD ROESCHDOB: [facility] BUSTLE MEDICAREPolicy [id number] Medical Center South, Number: Repository [place] [address]Msg: [id number] [phone] Date:2084-52-11PX BOX -6 (HP) [address] [place] [phone]: 09/25/2017 Secondary NOT GIVENUNK [place] Insurance:SELF PAY [facility] Number: Effective Repository Date:2017-07-16 09/11/2017 YOSHI Watts Primary IRIS Tucker Evelyn [id number] E Insurance:HUMANA GOLD ROESCHDOB: Community BUSTLE MEDICAREPolicy [id number] Medical Center South, Number: Repository [place] [address]Did: [id number] [phone] Date:7536-21-07IA [address] -[address] () [address] [place] [id number]: 09/11/2017 Secondary NOT GIVENUNK [place] Insurance:SELF PAY [facility] Number: Effective Repository Date:2017-07-19 09/10/2017 YOSHI Watts Primary IRIS Rivas [id number] E Insurance:HUMANA GOLD ROESCHDOB: Community BUSTLE MEDICAREPolicy [id number] Medical Center South, Number: Repository [place] [address]Tur: [id number] [phone] Date:5345-84-10GX [address] () [address] [place] [phone]: 09/10/2017 Secondary NOT GIVENUNK [place] Insurance:SELF PAY [facility] Number: Effective Repository Date:2017-09-10 08/21/2017 IRIS Tucker Primary IRIS Cuevas ROGLENYSCHDOB: Insurance:HUMANAPolic ROESCHDOB: [facility] E y Number: Effective [id number] System BUSTLE Date:2017-08-21 [facility] [id number], [place] [id number]: Name:CD:[id number] [facility] [id number]: [address] [place] [address] () [id number]: (577) (HP) [phone] () 08/13/2017 YOSHI Rivas [id number] E Insurance:HUMANA GOLD ROESCHDOB: Community BUSTLE MEDICAREPolicy [id number] Medical Center South, Number: Repository [place] [address]Gtm: [id number] [phone] Date:8075-82-77NU [address] () [id number] [place] [phone]: 08/13/2017 Secondary YOSHI A [place] Insurance:ANTHEMPolic ROESCHDOB: Community y Number: [id number] Hospital [id number] Repository Date:0470-26-66CT [id number] [place] [address]EL: 08/13/2017 Tertiary NOT GIVENUNK [place] Insurance:SELF PAY [facility] Number: Effective Repository Date:2017-08-13 08/07/2017 YOSHI Watts Primary IRIS Christensenoster [id number] E Insurance:HUMANA GOLD ROESCHDOB: Community BUSTLE MEDICAREPolicy [id number] Medical Center South, Number: Repository [place] [address]Umh: [id number] [phone] Date:0167-79-87MM [address] () [id number] [place] [address]PT: 08/07/2017 Secondary NOT GIVENUNK [place] Insurance:SELF PAY [facility] Number: Effective Repository Date:2017-08-06 07/31/2017 IRIS Primary IRIS Burgessron General ROESCHDOB: Insurance:HUMANA ROESCHDOB: [facility] E CHOICE [facility] [id number] Repository [facility] Number: [facility], [id number] [place] Date: [address]Rdm: () 07/31/2017 Secondary YOSHI [place] [facility] Insurance:BLUE CARD ROESCHDOB: [facility] Number: [id number] Repository [id number] Date: 07/29/2017 YOSHI Watts Primary IRIS Christ[place]oster [id number] E Insurance:HUMANA GOLD ROESCHDOB: Community BUSTLE MEDICAREPolicy [id number] Medical Center South, Number: Repository [place] [address]Mpx: [id number] [phone] Date:8327-51-87RP [address] -[address] (RZ) [address], [place] [address]HR: 07/29/2017 Secondary NOT GIVENUNK [place] Insurance:SELF PAY [facility] Effective Repository Date:2017-07-12 SOCIAL HISTORY SOCIAL HISTORY No Social History Records FoundFAMILY HISTORY FAMILY HISTORY No Family History Records FoundADVANCE DIRECTIVES ADVANCE DIRECTIVES No Advanced Directives Records FoundINFORMATION SOURCE INFORMATION SOURCE DATE CREATED AUTHOR AUTHOR'S ORGANIZATION 07/29/2018 [place]
== END ==
PROVIDERS: Family Provider Internal Medicine; PCP Internal Medicine; Referring Provider Family Medicine Geriatric Medicine; Visit Provider Family Medicine Geriatric Medicine
DX: D64.9 Anemia, unspecified (principal)
CPT/HCPCS: 36415; 36430; 86850; 86900; 86920; 86922; J7040; P9016; A4216; J1940

== ENCOUNTER 2018-07-14 07:40 | Day surgery (SDC) | payer MEDICARE, SELFPAY ==
[2018-06-25 14:20] VITALS: BMI 24.7
[2018-07-08 10:14] VITALS: BMI 40.6
[2018-07-14 07:51] VITALS: BP 103/75; PULSE 109; RESP 18; TEMP 36.7; O2SAT 98; BMI 29.7
--- NOTE | 2018-07-14 08:30 | EGD_PTH ---
PATIENT: IRIS DAVENPORT LOC: EN U#:[id number] AGE/SX: 78/F ROOM: RE07/14/[address]: Dr. Alejandro Armendariz MD : 1940 BED: DIS: 07/14/2018 SPEC #: [id number] RECD: 07/14/18 09:53 STATUS: REYES CLAY #: [id number] SELENA: 07/14/18 08:[address]: Alejandro Armendariz DEPT: SURGICAL PATHOLOGY RECD BY: Trenton Jaimes ENTERED: 07/14/18 11:54 SP TYPE: EGD BIOPSY OT DR: Dr. Minerva Martin MD Tissues: A - Gastric mucous membrane B - Gastric mucous membrane C - Esophageal mucous membrane Procedures: Special Stain Group II Surgery Specimen Level IV Alcian Blue/PAS (control) HEADER OPERATION: EGD ([facility] [place]) PRE-OP DIAGNOSIS: Anemia TISSUE SUBMITTED: A - Lesser curvature healed ulcer biopsy for H. pylori and pathology, B - Mucosal fullness mid stomach biopsy, C - Distal esophageal biopsy MICROSCOPIC DIAGNOSIS A. Gastric ulcer, lesser curvature of stomach, biopsy: Mild chronic gastritis. B. Mid stomach, biopsy: Mild to moderate chronic gastritis. C. Distal esophagus, biopsy: Gastroesophageal junction mucosa with chronic inflammation and mild acute inflammation. No evidence of intestinal metaplasia. AM:juan j 07/15/18 COMMENT A. The results of immunohistochemistry for Helicobacter pylori will be reported separately ([id number]). C. Alcian blue/PAS stain with matched control supports the above diagnosis. MICROSCOPIC DESCRIPTION Slides are reviewed. GROSS DESCRIPTION A - Received in fixative is one container labeled with the patient's name and designated biopsy lesser curvature. The specimen consists of multiple irregular fragments of light cannon soft tissue that in aggregate measure 0.7 x 0.6 x 0.1 cm. The specimen is totally submitted in one cassette. B - Received in fixative is one container labeled with the patient's name and designated biopsy mucosal fullness mid stomach. The specimen consists of two irregular fragments of light cannon soft tissue that in aggregate measure 0.7 x 0.4 x 0.1 cm. The specimen is totally submitted in one cassette. C - Received in fixative is one container labeled with the patient's name and designated biopsy distal esophagus. The specimen consists of multiple irregular fragments of light cannon soft tissue that in aggregate measure 0.6 x 0.5 x 0.1 cm. The specimen is totally submitted in one cassette. / SJ:rg 07/14/18 TC:3 CPT: 22445 x3, 05206
--- NOTE | 2018-07-14 08:30 | IMM_PTH ---
PATIENT: IRIS DAVENPORT LOC: EN U#:[id number] AGE/SX: 78/F ROOM: RE07/14/[address]: Dr. Alejandro Armendariz MD : 1940 BED: DIS: 07/14/2018 SPEC #: [id number] RECD: 07/15/18 10:11 STATUS: REYES REKayla #: [id number] SELENA: 07/14/18 08:[address]: Alejandro Armendariz DEPT: IMMUNOHISTOCHEMISTRY RECD BY: Christie Cade ENTERED: 07/15/18 10:13 SP TYPE: IMMUNO OTHR DR: Dr. Minerva Martin MD Tissues: A - Stomach, NOS Procedures: H Pylori (initial) PHYSICIAN & INSTITUTION [place] [id number] SPECIMEN INFORMATION: Tissue Source: A - Lesser curvature healed ulcer biopsy Clinical Info: Anemia Specimen Number: [id number] CPT code: 89039 METHODOLOGY: Deparaffinized sections of prefer/formalin-fixed tissue or PAP/DQ stained slides are incubated with monoclonal/polyclonal antibodies/oligonucleotide probes. Localization is made via biotin free immunoperoxidase method. Appropriate controls are performed and reacted as expected. Results on target cell population are indicated in the following table: RESULTS: ANTIBODY / CLONE RESULT Block A H Pylori (polyclonal) negative These tests were developed and their performance characteristics determined by [facility]. They may not have been cleared or approved by the U.S. Food and Drug Administration. The FDA has determined that such clearance or approval is not necessary. INTERPRETATION: A. Lesser curvature healed ulcer biopsy: Negative for Helicobacter pylori organisms. AM:juan j 07/15/18
[2018-07-14 08:58] VITALS: BP 103/75; BP 77/59; PULSE 94; RESP 16; TEMP 37.4; O2SAT 95
--- NOTE | 2018-07-14 08:58 | OP.ENDO_ITS ---
Patient Name: Darlene Arriaga Procedure Date: 07/14/2018 8:33 AM Date of : 1940 Age: 78 Procedure: Upper GI endoscopy Indications: Iron deficiency anemia secondary to chronic blood loss Providers: Alejandro Armendariz MD Referring MD: Alejandro Armendariz MD Medicines: See the Anesthesia note for documentation of the administered medications Complications: No immediate complications. Procedure: Pre-Anesthesia Assessment: - Prior to the procedure, a History and Physical was performed, and patient medications and allergies were reviewed. The patient's tolerance of previous anesthesia was also reviewed. The risks and benefits of the procedure and the sedation options and risks were discussed with the patient. All questions were answered, and informed consent was obtained. Prior Anticoagulants: The patient has taken no previous 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 or antiplatelet agents. ASA Grade Assessment: II - A patient with mild systemic disease. After reviewing the risks and benefits, the patient was deemed in satisfactory condition to undergo the procedure. After obtaining informed consent, the endoscope was passed under direct vision. Throughout the procedure, the patient's blood pressure, pulse, and oxygen saturations were monitored continuously. The gastroscope was introduced through the mouth, and advanced to the second part of duodenum. The upper GI endoscopy was accomplished without difficulty. The patient tolerated the procedure well. Scope In: 8:42:55 AM Scope Out: 8:49:31 AM Total Procedure Duration Time 0 hours 6 minutes 36 seconds Findings: LA Grade A (one or more mucosal breaks less than 5 mm, not extending between tops of 2 mucosal folds) esophagitis with no bleeding was found 40 cm from the incisors. Biopsies were taken with a cold forceps for histology. A medium-sized hiatal hernia was present. One non-bleeding healed gastric ulcer with no stigmata of bleeding was found on the lesser curvature of the stomach. Biopsies were taken with a cold forceps for histology. Localized nodular mucosa was found in the gastric body. Biopsies were taken with a cold forceps for histology. The examined duodenum was normal. Impression: - LA Grade A reflux esophagitis. Biopsied. - Medium-sized hiatal hernia. - Non-bleeding gastric ulcer with no stigmata of bleeding. Biopsied. I suspect this finding might correlate with the patient's hem positive stool and anemia - Nodular mucosa in the gastric body. Biopsied. - Normal examined duodenum. Recommendation: - Resume previous diet. - Continue present medications. - Telephone my office for pathology results in 1 week. Consider future colonoscopy if anemia persists Procedure Code(s): --- Professional --- 55113, Esophagogastroduodenoscopy, flexible, transoral; with biopsy, single or multiple Diagnosis Code(s): --- Professional --- K21.0, Gastro-esophageal reflux disease with esophagitis K44.9, Diaphragmatic hernia without obstruction or gangrene K25.9, Gastric ulcer, unspecified as acute or chronic, without hemorrhage or perforation K31.89, Other diseases of stomach and duodenum D50.0, Iron deficiency anemia secondary to blood loss (chronic) CPT copyright 2017 [employer]. All rights reserved. The codes documented in this report are preliminary and upon braille coder review may be revised to meet current compliance requirements. Alejandro Armendariz MD 07/14/2018 8:58:13 AM This report has been signed electronically. Number of Addenda: 0 Note Initiated On: 07/14/2018 8:33 AM
[2018-07-14 09:00] VITALS: BP 103/75; BP 84/70; PULSE 96; RESP 16; O2SAT 94
[2018-07-14 09:05] VITALS: BP 103/75; BP 89/61; PULSE 91; RESP 16; O2SAT 95
[2018-07-14 09:15] VITALS: BP 103/75; BP 90/63; PULSE 96; RESP 16; TEMP 36.3; O2SAT 95
== END 2018-07-14 09:38 | disposition skilled nursing facility (03) ==
LOC: EN 07:40 → AC 07:41
PROVIDERS: Family Provider Internal Medicine; PCP Internal Medicine; Referring Provider Surgery; Visit Provider Surgery
PROC: 0DJ08ZZ Inspection of Upper Intestinal Tract, Via Natural or Artificial Opening Endoscopic (ICD-10-PCS; CPT 43235; principal; 2018-07-14 08:25)
DX: K25.9 Gastric ulcer, unspecified as acute or chronic, without hemorrhage or perforation (principal); K29.50 Unspecified chronic gastritis without bleeding; K44.9 Diaphragmatic hernia without obstruction or gangrene; K21.0 Gastro-esophageal reflux disease with esophagitis; D50.0 Iron deficiency anemia secondary to blood loss (chronic); I48.0 Paroxysmal atrial fibrillation; I25.10 Atherosclerotic heart disease of native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 without angina pectoris; I50.22 Chronic systolic (congestive) heart failure; I27.20 Pulmonary hypertension, unspecified; E78.5 Hyperlipidemia, unspecified; E03.9 Hypothyroidism, unspecified; M81.0 Age-related osteoporosis without current pathological fracture; G47.33 Obstructive sleep apnea (adult) (pediatric); F32.9 Major depressive disorder, single episode, unspecified; F41.9 Anxiety disorder, unspecified; Z79.82 Long term (current) use of aspirin; Z79.899 Other long term (current) drug therapy; Z86.73 Personal history of transient ischemic attack (TIA), and cerebral infarction without residual deficits; Z95.2 Presence of prosthetic heart valve; Z95.810 Presence of automatic (implantable) cardiac defibrillator; Z86.718 Personal history of other venous thrombosis and embolism; Z96.651 Presence of right artificial knee joint
CPT/HCPCS: 43239; 88305; 88313; 88342; J7120; A4216

== ENCOUNTER → 2018-07-27 07:43 | Outpatient (CLI) | payer MEDICARE, SELFPAY ==
[2018-07-15 15:58] VITALS: BMI 29.7
[2018-07-27 09:31] LABS: Anion Gap 9 (5-15); BUN 41 mg/dL (7-18); BUN/Creat Ratio 29.3 RATIO (10-20); Calcium,Total 9.3 mg/dL (8.5-10.1); Chloride 94 mmol/L (98-107); EST Glomerular Filtration Rate 39 mL/min (>60); Est Glom Filt Rate - Afr Amer 47 mL/min (>60); Glucose 112 mg/dL (74-106); Potassium 3.7 mmol/L (3.5-5.1); Sodium Level 135 mmol/L (136-145)
--- OUTSIDE RECORDS SUMMARY | 2018-10-28 17:57 | XMS RPT_ITS | Continuity of Care Document ---
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 Indication: Nonsustained VT Patient Substrate: Nonischemic cardiomyopathy By: Echo Implant DFT: 18J Underlying rhythm: Sinus rhythm Pacemaker Dependent: No Device Characteristics Device: Single Chamber Type: Implantable defibrillator Remote Follow-Up: No Device Physical Exam Yes Incision well healed Leads Lead #1 Release Specialist Lead 1: Medtronic Model Lead 1: 5076 Serial# Lead 1: [id number] Date Implanted Lead 1: 09/03/04 Position Lead 1: RV Lead #2 Release Specialist Lead 2: Medtronic Model Lead 2: 6943 Serial# Lead 2: [id number] Date Implanted Lead 2: 11/18/00 Position Lead [...] R00.2 6. 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 Syncope R55 02/01/18 1335 <Electronically signed by Kim Pickard > Date Kim Pickard 02/02/18 0800<Electronically signed by Gurdeep Huang MD> Cosigner Signature: Date (if applicable) Gurdeep Huang MD CC: 27-Oct-2017 Venous Duplex Lower Extremity Result: Comments: See Note; NOTES: [facility] Cardiovascular Services [address] [place] [address] Venous Duplex US, Unilateral 10/27/17 0952 MR#: [id number] Acct: [id number] Name: Bacilio IRIS ARMENDARIZ Rep #: [id number] : 1940 77 From: Alejandro Armendariz MD [...] MD CC: Minerva Vergara MD Date Dictated: 10/27/1752 Date Transcribed: 10/27/171613 Explosive Ordnance Manager: Signed 15-Oct-2017 Pulmonary Visit Report Result: Comments: See Note; NOTES: [facility] [address] [place] [address] OFFICE VISIT Date of Service: 10/15/17 MR#: [id number] Acct: [id number] Name: SIOMARA GAVIRIAIRIS Tucker Rep #: [id number] : 1940 Provider: Glenna Anderson Age/Sex: 77/F Location: [facility].W Status: Signed Assessment AND Plan 1. URMILA [...] Plan Detail Follow Up 3 Months (DMB) [facility] Hospital FU: Chief Complaint: Shortness of [...] body aches. She has not utilized any mwtk-mhw-vaqcxah medications for her shortness of breath. 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 Imaging Services [address] [place] [address] SCREENING MAMM (CAD), BILAT MR#: [id number] Acct: [id number] Name: IRIS ARRIAGA Rep #: [id number] : 1940 F 77 From: Ed Fink MD PCP: Minerva Vergara MD Status: REG CLI Study: SCREENING MAMM (CAD), BILAT Date of Exam: 10/14/17 Exam# [id number] Ordering Dr: Minerva Vergara MD MAMMOGRAPHY - [...] delay biopsy of a clinically suspicious abnormality. [id number] Electronically Signed: Ed Fink MD at 11:10 EST Tel [phone], Service support , CC: Minerva Vergara MD Explosive Ordnance Manager: Signed 06-Oct-2017 Office Visit Report Result: Comments: See Note; NOTES: [address] [place] [address] OFFICE VISIT Date of Service: 09/25/17 MR#: [id number] Acct: [id number] Patient: IRIS ARRIAGA Rep #: [id number] : 1940 Provider: Kim Pickard Age/Sex: 77/F Location: [facility] Status: Signed Comments Summary Comments: Single Chamber ICD Evaluation: Interrogation shows no VT/VF episodes since 06/17/17. Left pectoral pocket/incision w/o s/s of infection or erosion. Pt offers no cardiac complaints. Presenting rhythm shows NSR @ 92 bpm. STAVE GRADER=<0.1%. Lead impedance, sensing and pace/sense thres hold remain stable. No parameter changes made. Counters cleared. Next f/u appt scheduled for in 3 mos. Device Device Date Interviewed: 09/25/17 Follow-up Location: in office Interview Reason: routine follow up Release Specialist: Medtronic Name: Protecta VR Model: [id number] Serial #: [id number] Implant Date: 04/29/13 Year(s): 4 Implant Physician: [...] Incision well healed Leads Le ad #1 Release Specialist Lead 1: Medtronic Model Lead 1: 5076 Serial# Lead 1: [id number] Date Implanted Lead 1: 09/03/04 Position Lead 1: RV Additional Details: pace/sense lead Lead #2 Release Specialist Lead 2: [employer] Model Lead 2: 6943 Serial# Lead 2: [id number] Date Implanted Lead 2: 11/18/00 Position Lead [...] Visit Report Result: Comments: See Note; NOTES: [facility] 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 [...] artery disease) I25.10 Coronary Disease-Associated Artery/Lesion type: deering artery Long-term use of high-risk medication Z79.899 [...] artery disease) I25.10 Coronary Disease-Associated Artery/Lesion type: deering artery Long-term use of high-risk medication Z79.899 09/11/17 1716 <Electronically signed by Gurdeep Huang MD> Date Gurdeep Huang MD Cosigner Signature: Date ___ (if applicable) CC: Minerva Vergara MD 28-Jul-2017 Venous Duplex Lower Extremity Result: Comments: See Note; NOTES: [facility] Cardiovascular Services [address] [place] [address] Venous Duplex US, Unilateral 07/28/1742 MR#: [id number] Acct: [id number] Name: IRIS HOU Rep #: [id number] : 1940 77 From: Alejandro Armendariz MD [...] Vergara Performed By: Sheridan Acuna RVT 07/28/17 175 Date Alejandro Armendariz MD CC: Minerva Vergara MD Date Dictated: 07/28/17 0942 Date Transcribed: 07/28/17 175 Explosive Ordnance Manager: Signed 28-Jul-2017 CT ANGIO ABD AND PEL W/O AND W/DYE Result: Comments: See Note; NOTES: [facility] Imaging Services [address] [place] [address] CT ANGIO ABD AND PEL W/O AND W/DYE MR#: [id number] Acct: [id number] Name: IRIS ARRIAGA Rep #: [id number] : 1940 F 77 From: Apolinar Ansari DO PCP: Minerva Vergara MD Status: REG CLI Study: CT ANGIO ABD AND PEL W/O AND W/DYE Date of Exam: 07/28/17 Exam# [id number] Ordering Dr: Minerva Child i, MD STUDY: [...] Service support , CC: Minerva Vergara MD Explosive Ordnance Manager: Signed 19-Feb-2017 6 Minute Walk Test Result: Comments: See Note; NOTES: [facility] Pulmonary Services/Neurology [address] [place] [address] MR#: [id number] Acct: [id number] Name: IRIS ARRIAGA Rep #: [id number] : 1940 77 From: Jeremie Schulzt MD Referring Dr: Bruno Barcenas D.O. Date: Ordering Dr: Sex: F C Location: PSN PSN 6 Minute Walk Test - 6 Minute Walk Test 6 Minute Walk Test: 6 Minute Walk Test PS N:6-Minute Walk Test Start: 02/19/17 12:50 Freq: Status: Active Document 02/19/17 12:50 FR (Rec: 02/19/17 12:53 FR [id number]) 6 Minute Walk Test Date Performed 02/19/17 [...] CC: Date Dictated: 02/19/171552 Date Transcribed: 02/19/171552 Explosive Ordnance Manager: Jeremie Schultz Signed 03-Jan-2017 Abdomen/Pelvis WITH Contrast Result: Comments: See Note; NOTES: [facility] Imaging Services [address] [place] [address] Verdana 4d Abdomen/Pelvis WITH Contrast MR#: [id number] Acct: [id number] Name: JARON ARRIAGA CRISTOFER Caitlin Rep #: [id number] : 1940 F 76 From: Ed Fink MD PCP: Minerva Vergara MD Status: REG CLI Study: Abdomen/Pelvis WITH Contrast Date of Exam: 01/03/17 Exam# [id number] Ordering Dr: Minerva Bartlett MD STUDY: CT [...] Ed Fink MD at 13:03 EDT Tel [phone], Service support , CC: Minerva Vergara MD Explosive Ordnance Manager: Signed 01-Jan-2017 Pulmonary Function Report Comp Result: Comments: See Note; NOTES: [facility] Pulmonary Services/Neurology [address] [place] [address] Pulmonary Function Test (Comp) MR#: [id number] Acct: [id number] Name: CATHLEEN ARRIAGA Rep #: [id number] : 1940 76 From: Bruno Barcenas DO Referring Dr: Minerva Vergara MD Status: REG CLI Ordering Dr: Minerva Vergara MD Date: 12/31/16 Location: N Sex: F C DATE OF SERVICE: 12/10 [...] C: Referring Provider . T: NTS JOB: [id number] 01/01/17 1057 <Electronically signed by Christian Barcenas DO> Date Bruno Barcneas DO CC: Minerva Vergara MD; Bruno Barcenas D.O. Date Dictated: 12/31/161600 Date Transcribed: 12/31/161600 Explosive Ordnance Manager: Signed 26-Dec-2016 Echocardiogram Complete Result: Comments: See Note; NOTES: [facility] Cardiovascular Services [address] [place] [address] Echo Complete 12/25/16 1357 MR#: [id number] Acct: [id number] Name: IRIS ARRIAGA Rep #: [id number] : 1940 76 From: Gurdeep Huang MD Attending Dr: Peace Miller Status: REG CLI Ordering Dr: Peace Miller Date: 12/25/16 Location: [facility] Sex: F C Admitted: R oziel [...] Minerva Vergara M.D. Performed By: Prema Fiore [facility] 12/26/16 0907 Date Gurdeep Huang MD CC: Minerva Vergara MD; Peace Miller Date Dictated: 12/25/16 1357 Date Transcribed: 12/26/16906 Explosive Ordnance Manager: Signed 04-Dec-2016 Abd Inc Decub and/or Erect Result: Comments: See Note; NOTES: [facility] Imaging Services [address] [place] [address] Verdana 4d Abd Inc Decub and/or Erect MR#: [id number] Acct: [id number] Name: ARI ARRIAGA Rep #: [id number] : 1940 F 76 From: Mele Brown MD PCP: Minerva Vergara MD Status: REG CLI Study: Abd Inc Decub and/or Erect Date of Exam: 12/04/16 Exam# [id number] Ordering Dr: Anita Quiñonez DO STUDY: X-RAY [...] CC: Minerva Vergara MD; Ida Quiñonez DO Explosive Ordnance Manager: Signed 04-Dec-2016 CTA Chest W/WO Contrast Result: Comments: See Note; NOTES: [facility] Imaging Services [address] [place] [address] Verdana 4d CTA Chest W/WO Contrast MR#: [id number] Acct: [id number] Name: IRIS ARRIAGA Rep #: [id number] : 1940 F 76 From: Ed Fink MD PCP: Minerva Vergara MD Status: REG CLI Study: CTA Chest W/WO Contrast Date of Exam: 12/04/16 Exam# [id number] Ordering Dr: Ida Quiñonez DO STUDY: CTA [...] Megan Fink MD at 15:43 EDT Tel [phone], Service support , CC: Minerva Vergara MD; Ida Quiñonez DO Explosive Ordnance Manager: Signed 03-Dec-2016 Venous Duplex Lower Extremity Result: Comments: See Note; NOTES: [facility] Cardiovascular Services [address] [place] [address] Venous Duplex US - David Extrem 12/03/16 1553 MR#: [id number] Acct: [id number] Name: IRIS ARRIAGA Rep #: [id number] : 1940 76 From: Alejandro Armendariz MD [...] Ordering Physician: Alejandro Armendariz Performed By: Rm Ferro, RVKerri 12/03/161849 Date Alejandro Armendariz MD CC: Minerva Vergara MD; Alejandro Armendariz MD Date Dictated: 12/03/16 1553 Da te Transcribed: 12/03/161849 Explosive Ordnance Manager: Signed 02-Dec-2016 Abdomen without IV Contrast Result: Comments: See Note; NOTES: [facility] Imaging Services [address] [place] [address] Verdana 4d Abdomen without IV Contrast MR#: [id number] Acct: [id number] Name: CAMILA ARRIAGA Rep #: [id number] : 1940 F 76 From: Moses Chase MD PCP: Minerva Vergara MD Status: REG CLI Study: Abdomen without IV Contrast Date of Exam: 12/02/16 Exam# [id number] Ordering Dr: Minerva Broussard MD STUDY: CT [...] diverticulitis. The abdominal wall is intact. A Marly umbrella filter is in place but 4 [...] left.. CT/Abdomen without IV Contrast IMPRESSION: A Home umbrella filter in place with at least [...] Service support , CC: Minerva Vergara MD Explosive Ordnance Manager: Signed 31-Oct-2016 Abd Inc Decub and/or Erect Result: Comments: See Note; NOTES: [facility] Imaging Services [address] [place] [address] Verdana 4d Abd Inc Decub and/or Erect MR#: [id number] Acct: [id number] Name: ARI ARRIAGA Rep #: [id number] : 1940 F 76 From: Ed Fink MD PCP: Minerva Vergara MD Status: REG CLI Study: Abd Inc Decub and/or Erect Date of Exam: 10/31/16 Exam# [id number] Ordering Dr: Minerva Vergara MD STUDY: X-RAY [...] Ed Fink MD at 10:26 EDT Tel [phone], Service support [phone], CC: Minerva Vergara MD Explosive Ordnance Manager: Signed 31-Oct-2016 Chest PA and Lateral Result: Comments: See Note; NOTES: [facility] Imaging Services [address] [place] [address] Martindana 4d Chest PA and Lateral MR#: [id number] Acct: [id number] Name: IRIS ARRIAGA p #: [id number] : 1940 F 76 From: Ed Fink MD PCP: Minerva Vergara MD Status: REG CLI Study: Chest PA and Lateral Date of Exam: 10/31/16 Exam# [id number] Ordering Dr: Minerva Vergara MD S TUDY: [...] Ed Fink MD at 10:27 EDT Tel [phone], Service support [phone], CC: Minerva Vergara MD Explosive Ordnance Manager: Signed 26-Sep-2016 Dexa Bone Density Study (HP) Result: Comments: See Note; NOTES: [facility] Imaging Services [address] [place] [address] Verdana 4d Dexa Bone Density Study () MR#: [id number] Acct: [id number] Name: JARON ARRIAGA Rep #: [id number] : 1940 F 76 From: Ed Fink MD PCP: Minerva Vergara MD Status: REG CLI Study: Dexa Bone Density Study (HP) Date of Exam: 09/26/16 Exam# [id number] Ordering Dr: Minerva Bartlett MD STUDY: DUAL [...] Fink MD at 15:0 0 EST Tel [phone], Service support [phone], CC: Minerva Vergara MD Explosive Ordnance Manager: Signed 26-Sep-2016 SCREENING MAMM (CAD), BILAT Result: Comments: See Note; NOTES: [facility] Imaging Services [address] [place] [address] Verdana 4d SCREENING MAMM (CAD), BILAT MR#: [id number] Acct: [id number] Name: CAMILA ARRIAGA Rep #: [id number] : 1940 F 76 From: Ed Fink MD PCP: Minerva Vergara MD Status: REG CLI Study: SCREENING MAMM (CAD), BILAT Date of Exam: 09/26/16 Exam# [id number] Ordering Dr: Minerva Child i, MD MAMMOGRAPHY [...] delay biopsy of a clinically suspicious abnormality. [id number] Electronically Signed: Ed Fink MD at 7:48 EST Tel [phone], Service support [phone], CC: Minerva Vergara MD Explosive Ordnance Manager: Signed 09-Feb-2016 Operative Report Result: Comments: See Note; NOTES: [facility] Medical Records Department [address] [place] [address] Operative Report MR#: [id number] Acct: [id number] Name: CAMILA ARRIAGA Rep #: [id number] : 1940 76 From: Clifford Gifford MD [...] without difficulty to the cecum, identified by asa'carsarmiut's foot appearance, ileocecal valve and appendiceal orifice. [...] patient. Kamari Gifford MD T: NTS JOB: [id number] 02/09/16705 <Electronically signed by Clifford Gifford MD> Date Clifford Gifford MD Cosign er Signature (If Indicated): Date CC: Clifford Gifford; Minerva Vergara MD Date Dictated: 01/30/16832 Date Transcribed: 01/30/16832 Explosive Ordnance Manager: Signed 15-Nov-2015 Gallbladder Result: Comments: See Note; NOTES: [facility] Imaging Services [address] [place] [address] Verdana 4d Gallbladder MR#: [id number] Acct: [id number] Name: IRIS ARRIAGA Rep #: [id number] : 1940 F 75 From: Sofia Storey MD PCP: Minerva Vergara MD Status: REG ER Study: Gallbladder Date of Exam: 11/15/15 Exam# [id number] Ordering Dr: Jalil Nogueira MD STUDY: ULTRASOUND [...] MD at 21:57 EDT , Service support [phone], F ax [phone] CC: Minerva Vergara MD; Jalil Nogueira MD Explosive Ordnance Manager: Signed 15-Nov-2015 Abdomen/Pelvis WITH Contrast Result: Comments: See Note; NOTES: [facility] Imaging Services [address] [place] [address] Verdana 4d Abdomen/Pelvis WITH Contrast MR#: [id number] Acct: [id number] Name : IRIS ARRIAGA Rep #: [id number] : 1940 F 75 From: Sofia Storey MD PCP: Minerva Vergara MD Status: [facility] ER Study: Abdomen/Pelvis WITH Contrast Date of Exam: 11/15/15 Exam# [id number] Order ing Dr: Jalil Nogueira MD STUDY: [...] MD at 20:10 EDT , Service support [phone], CC: Minerva Vergara MD; Jalil Nogueira MD Explosive Ordnance Manager: Signed 31-Oct-2015 Cerv Spine 4 or 5 Views Result: Comments: See Note; NOTES: [facility] Imaging Services [address] [place] [address] Verdana 4d Cerv Spine 4 or 5 Views MR#: [id number] Acct: [id number] Name: IRIS WRAY Rep #: [id number] : 1940 F 75 From: Alexey Stephens MD PCP: Minerva Vergara MD Status: REG CLI Study: Cerv Spine 4 or 5 Views Date of Exam: 10/31/15 Exam# [id number] Ordering Dr: Tiffanie Corcoran DO STUDY: X-RAY [...] a t 13:54 EDT , Service support [phone], RAD/Cerv Spine 4 or 5 Views IMPRESSION: Severe cervical spondylosis. Electronically Signed: Earl Stephens MD, FACR at 13:54 EDT , Service support [phone], CC: Tiffanie Saha DO; Minerva Vergara MD Explosive Ordnance Manager: Signed 28-Sep-2015 PT D/C Summary (1) Result: Comments: See Note; NOTES: Physical Therapy [facility] [address] [place] [address] Fax REHABILITATION [facility] [place] DISCHARGE SUMMARY MR#: [id number] Acct: [id number] Name: IRIS ARRIAGA Rep #: [id number] : 1940 75 From: Kelvin Newman DPT, [...] please feel free to call me at [phone]. Thank you for the referral of this patient. Sincerely, Kelvin Newman <Electronically signed by Kelvin Newman DPT, OCS, CSCS> 09/28/15 0964 CC: Minerva Vergara MD; Nerissa Bhat EBG Signed 24-Aug-2015 PT Communication Result: Comments: See Note; NOTES: [facility] [address] [place] [address] Fax REHABILITATION SE [facility] PROGRESS NOTE MR#: [id number] Acct: [id number] Name: IRIS ARRIAGA Rep #: [id number] : 1940 75 From: Kelvin Newman Referring Dr.: Nerissa Bhat Status: REG RCR Insurance: [facility]IC[facility] PPO ANTHEM PT Communication Note 08/24/[address] Nerissa Bhat M and Dr. Vergara, Thank you for the referral of Iris Arriaga to [facility] for physical therapy and balance assessment. I [...] - PT Result: Comments: See Note; NOTES: Physical Therapy [facility] [address] [place], [place] [address] Fax REHABILITATION RV[facility] INITIAL EVALUATION MR#: [id number] Acct: [id number] Name: IRIS ARRIAGA Rep #: [id number] : 1940 75 From: Kelvin Newman Referring [...] Duration: 4-6 Weeks - Subjective [place] in May and hurt head. Then p assed out shortly thereafter went to ER and was dehydrated. Went to Dr. vergara a couple weeks ago and was sent to ER for low blood pressure. Spent a few days in hospital and found that the pig valve is thickening. Will go to [place] later in month as Dr. Huang sent [...] to be FAXED BACK to us at [phone] for Medicare purp oses. Please let me know if there are questions or concerns regarding this plan of care. Physician Signature: Date: <Electron ically signed by Kelvin Newman > 08/17/15 0944 CC: Minerva Vergara MD; Nerissa Bhat EL Signed For Medicare only, by signing this I certify the plan of care. Physicians Signature Date 09-Aug-2015 Brain/Head without Contrast Result: Comments: See Note; NOTES: [facility] Imaging Services [address] [place] [address] Mukund 4d Brain/Head without Contrast MR#: [id number] Acct: [id number] Name: IRIS ARRIAGA Rep #: [id number] : 1940 F 75 From: Robert Osborn MD PCP: Minerva Vergara MD Status: REG ER Study: Brain/Head without Contrast Date of Exam: 08/09/15 Exam# [id number] Ordering D r: Sneha Baptiste MD STUDY: [...] at 13:15 EST Tel , Service support [phone], CC: Minerva sierra MD; Sneha Baptiste MD Explosive Ordnance Manager: Signed 09-Aug-2015 Chest 1 View (Portable) Result: Comments: See Note; NOTES: [facility] Imaging Services [address] [place] [address] Verdana 4d Chest 1 View (Portable) MR#: [id number] Acct: [id number] Name: IRIS WRAY Rep #: [id number] : 1940 F 75 From: Robert Osborn MD PCP: Minerva Vergara MD Status: REG ER Study: Chest 1 View (Portable) Date of Exam: 08/09/15 Exam# [id number] Ordering Dr: Sneha Baptiste MD STUDY: X-RAY [...] at 12:43 EST Tel , Service support [phone], RAD/Chest 1 View (Portable) IMPRESSION: No acute pulmonary process, no interval change Electronically Signed: Josesito Osborn MD at 12:43 EST Tel , Service support [phone], CC: Minerva Vergara MD; Sneha Baptiste MD Explosive Ordnance Manager: Signed 20-Jul-2015 Chest PA and Lateral Result: Comments: See Note; NOTES: [facility] Imaging Services [address] [place] [address] Verdana 4d Chest PA and Lateral MR#: [id number] Acct: [id number] Name: IRIS ARRIAGA Rep #: [id number] : 1940 F 75 From: Ed Fink MD PCP: Minerva Vergara MD Status: REG CLI Study: Chest PA and Lateral Date of Exam: 07/20/15 Exam# [id number] Ordering Dr: Minerva Amezquita MD STUDY: X-RAY [...] Ed Fink MD at 13:14 EST Tel [phone], Service support [phone], RAD/Chest PA and Lateral IMPRESSION: No acute abnormality is seen. Electronically Signed: Ed Fink MD at 13:14 EST Tel [phone] , Service support [phone], CC: Minerva Vergara MD Explosive Ordnance Manager: Signed 06-Jun-2015 Brain/Head without Contrast Result: Comments: See Note; NOTES: [facility] Imaging Services [address] [place] [address] Verdana 4d Brain/Head without Contrast MR#: [id number] Acct: [id number] Name: IRIS ARRIAGA Rep #: [id number] : 1940 F 75 From: Ed Fink MD PCP: Minerva Vergara MD Status: REG ER Study: Brain/Head without Contrast Date of Exam: 06/06/15 Exam# [id number] Ord ering Dr: Kermit Verduzco MD STUDY: [...] Fink MD a t 16:13 EDT Tel [phone], Service support [phone], CC: Minerva Vergara MD; Kermit Verduzco MD Explosive Ordnance Manager: Signed 06-Jun-2015 Chest 1 View (Portable) Result: Comments: See Note; NOTES: [facility] Imaging Services [address] [place] [address] Verdana 4d Chest 1 View (Portable) MR#: [id number] Acct: [id number] Name: IRIS WRAY Rep #: [id number] : 1940 F 75 From: Farhad Cedillo MD PCP: Minerva Vergara MD Status: REG ER Study: Chest 1 View (Portable) Date of Exam: 06/06/15 Exam# [id number] Ordering Dr: Kermit Verduzco MD STUDY: X-RAY [...] at 17:06 EDT Tel , Service support [phone], GILL ER #: [id number] RAD/Chest 1 View (Portable) IMPRESSION: 1. Left-sided bipolar pacemaker seen with leads appearing in good position. 2. Moderate cardiomegaly. 3. Status post sternotomy changes. 4. There is no evidence of infiltrate, atelectasis, or pleural fluid. Electronically Signed: Farhad Cedillo MD at 17:06 EDT Tel , Service support [phone], Fax CC: Minerva Vergara MD; Kermit Verduzco MD Explosive Ordnance Manager: Signed 06-Jun-2015 Pelvis 1 or 2 Views Result: Comments: See Note; NOTES: [facility] Imaging Services [address] [place] [address] Verdana 4d Pelvis 1 or 2 Views MR#: [id number] Acct: [id number] Name: IRIS ARRIAGA Rep #: [id number] : 1940 F 75 From: Ed Fink MD PCP: Minerva Vergara MD Status: REG ER Study: Pelvis 1 or 2 Views Date of Exam: 06/06/15 Exam# [id number] Ordering Dr: Kermit Verduzco MD STUDY: X-RAY [...] Ed Fink MD at 16:15 EDT Tel [phone], Service support [phone], RAD/Pelvis 1 or 2 Views IMPRESSION: Status post bilateral total hip replacement. Elect ronically Signed: Ed Fink MD at 16:15 EDT Tel [phone], Service support [phone], CC: Minerva Vergara MD; Kermit Verduzco MD Explosive Ordnance Manager: Signed 06-Jun-2015 Spine Cervical without Contras Result: Comments: See Note; NOTES: [facility] Imaging Services [address] [place] [address] Verdana 4d Spine Cervical without Contras MR#: [id number] Acct: [id number] Na me: IRIS ARRIAGA Rep #: [id number] : 1940 F 75 From: Ed Fink MD PCP: Minerva Vergara MD Status: REG ER Study: Spine Cervical without Contras Date of Exam: 06/06/15 Exam# [id number]: Kermit Verduzco MD STUDY: [...] Ed Fink MD at 16:15 EDT Tel [phone], Service support [phone], CC: Minerva Vergara MD; Kermit Verduzco MD Explosive Ordnance Manager: Signed 19-Apr-2015 Spine Lumbar without Contrast Result: Comments: See Note; NOTES: [facility] Imaging Services [address] [place] [address] CAT Scan Report MR#: [id number] Acct: [id number] Name: IRIS ARRIAGA Rep #: [id number] : 1940 F 75 From: Tami Rodriguez MD PCP: Minerva Vergara MD Status: REG CLI Study: Spine Lumbar without Contrast Date of Exam: 04/19/15 Exam# [id number] Ordering Dr: Codie Collins o. STUDY: CT [...] at 14:58 EDT Tel , Service support [phone], CC: Minerva Vergara MD; OUT OF TOWN DOCTOR Explosive Ordnance Manager: Signed 19-Apr-2015 Lumbar Myelogram Result: Comments: See Note; NOTES: [facility] Imaging Services [address] [place] [address] Radiology Report MR#: [id number] Acct: [id number] Name: IRIS ARRIAGA Rep #: [id number] : 1940 F 75 From: Tami Rodriguez MD PCP: Minerva Vergara MD Status: REG CLI Study: Lumbar Myelogram Date of Exam: 04/19/15 Exam# [id number] Ordering Dr: CRISTIAN COFFEY CLINICAL HISTORY : [...] at 15:12 EDT Tel , Service support [phone], RAD/Lumbar Myelogram IMPRESSI ON: There is severe spinal canal stenosis at L4-5. Electronically Signed: Jessy Rodriguez MD at 15:12 EDT Tel , Service support [phone], CC: Gina Vergara MD; CRISTIAN COFFEY Explosive Ordnance Manager: Signed 10-Apr-2015 Discharge Instruction Result: Comments: See Note; NOTES: [facility] Medical Records Department [address] [place] [address] Discharge Instruction 04/03/15 1440 MR#: [id number] Acct: [id number] Name: IRIS ARRIAGA Rep #: [id number] : 1940 75 From: Ellen Gilman MD PCP: Minevra Vergara MD Status: DEP ER ED Disposition [...] problems, contact your doctor. Call [facility] ([phone]) or report to the closest Emergency Room. Call 911 if necessary. 04/03/15 1441 <Electronically signed by Ellen Gilman MD> Date Ellen Gilman MD 04/10/15 0835<Electronically signed b gisell Polanco MD> Cosigner Signature (If Indicated): Date Rickie Polanco MD CC: Minerva Vergara MD 10-Apr-2015 Discharge Instruction Result: Comments: See Note; NOTES: [facility] Medical Records Department [address] [place] [address] Discharge Instruction 04/03/15 1448 MR#: [id number] Acct: [id number] Name: IRIS ARRIAGA Rep #: [id number] : 1940 75 From: Rickie Polanco MD PCP: Minerva Vergara MD Status: DEP ER ED Disposition - Plan for ED Patient: Disposition: Home or Assisted Living C [facility] Complaint: Lower Extremity Injury Instructions: ED [...] problems, contact your doctor. Call [facility] ([phone]) or report to the closest Emergency Room. Call 911 if necessary. 04/10 0835 <Electronically signed by Rickie Polanco MD> Date Rickie Polanco MD Cosigner Signature (If Indicated): Date CC: Minerva Vergara MD 10-Apr-2015 Emergency Department Summary Result: Comments: See Note; NOTES: [facility] Medical Records Department [address] [place] [address] Emergency Department Summary MR#: [id number] Acct: [id number] Name: IRIS VALENCIA Rep #: [id number] : 1940 75 From: Ellen Gilman MD [...] acute. Ellen Gilman MD T: NTS JOB: [id number] 04/05/15 0836 <Electronically signed by Ellen Gilman MD> Date Ellen Gilman MD 04/10/15 0835 <Electronically signed by Natanael Polanco MD> Cosigner Signature (If Indicated): Date Rickie Polanco MD CC: Minerva Vergara MD Date Dictated: 04/03/15 1455 Date Transcribed: 04/03/151454 Explosive Ordnance Manager: Signed 04-Apr-2015 12 Lead Electrocardiogram Result: Comments: See Note; NOTES: [facility] Cardiovascular Services [address] [place] [address] 12 Lead EKG 04/03/15 1351 MR#: [id number] Acct: [id number] Name: IGGY ARRIAGA Rep #: [id number] : 1940 75 From: Gurdeep Huang MD [...] by REINA TIRADO, GURDEEP ([id number]), manager editorial CAROLEE MARIEE ([id number]) on 04/04/2015 10:27:52 AM Referred By: VALENTINA Confirmed By:GURDEEP HUANG MD 04/04/15 1027 Date Gurdeep Huang MD CC: Minerva Vergara MD Date Dictated: 04/03/15 1351 Date Transcribed: 04/03/151350 Explosive Ordnance Manager: Signed 03-Apr-2015 Femur 2 Views Result: Comments: See Note; NOTES: [facility] Imaging Services [address] [place] [address] Radiology Report MR#: [id number] Acct: [id number] Name: IRIS ARRIAGA Rep #: [id number] : 1940 F 75 From: Ed Fink MD PCP: Minerva Vergara MD Status: REG ER Study: Femur 2 Views Date of Exam: 04/03/15 Exam# [id number] Ordering Dr: Rickie Polanco MD STUDY: X- [...] Ed Fink MD at 12:59 EDT Tel [phone], Service support [phone], RAD/ Femur 2 Views IMPRESSION: No acute abnormality is seen. Electronically Signed: Ed Fink MD at 12:59 EDT Tel [phone], Service support [phone], CC: Minerva Vergara MD; Rickie Polanco MD Explosive Ordnance Manager: Signed 03-Apr-2015 Chest PA and Lateral Result: Comments: See Note; NOTES: [facility] Imaging Services [address] [place] [address] Radiology Report MR#: [id number] Acct: [id number] Name: IRIS ARRIAGA Rep #: [id number] : 1940 F 75 From: Ed Fink MD PCP: Minerva Vergara MD Status: REG ER Study: Chest PA and Lateral Date of Exam: 04/03/15 Exam# [id number] Ordering Dr: Ellen Gilman MD STUD Y: [...] Ed Fink MD at 13:05 EDT Tel [phone], Service support [phone], Fax RAD/Chest PA and Lateral IMPRESSION: Mild degree of linear scarring at the lung bases and blunting of both costophrenic angles. Electronically Signed: Ed ldeezma MD at 13:05 EDT Tel [phone], Service support [phone], CC: Ellen Gilman MD; Minerva Vergara MD Explosive Ordnance Manager: Signed 27-Mar-2015 Abd Inc Decub and/or Erect Result: Comments: See Note; NOTES: [facility] Imaging Services [address] [place] [address] Radiology Report MR#: [id number] Acct: [id number] Name: IRIS ARRIAGA Rep #: [id number] : 1940 F 75 From: Tylor Guzman DO PCP: Minerva Vergara MD Status: REG CLI Study: Abd Inc Decub and/or Erect Date of Exam: 03/27/15 Exam# [id number] Ordering Dr: Ida Quiñonez DO STUDY: X- [...] Guzman DO at 18:34 EDT Te l [phone], Service support [phone], 0093 RAD/Abd Inc Decub and/or Erect IMPRESSION: No acute abdominal pathology is noted. Electronically Signed: Tylor Guzman DO at 18:34 EDT Tel [phone], Service support [phone], CC: Minerva Vergara MD; Ida Quiñonez DO Explosive Ordnance Manager: Signed 20-Mar-2015 PT Discharge Summary Result: Comments: See Note; NOTES: [facility] [address] [place] [address]. [address] [place], [place] [address] Fax REHABILITATION SERVICES DISCHARGE SUMMARY MR#: [id number] Acct: [id number] Name: IRIS ARRIAGA Rep #: [id number] : 1940 75 From: Kelvin Newman Referring [...] program. Kelvin Newman, PT T: NTS JOB: [id number] <Electronically signed by Kelvin Newman > 03/20/15 0648 CC: Signed 25-Jan-2015 Chest PA and Lateral Result: Comments: See Note; NOTES: [facility] Imaging Services [address] [place] [address] Radiology Report MR#: [id number] Acct: [id number] Name: IRIS ARRIAGA Rep #: [id number] : 1940 F 75 From: Apolinar Ansari DO PCP: Minerva Vergara MD Status: REG CLI Study: Chest PA and Lateral Date of Exam: 01/25/15 Exam# [id number] Ordering Dr: Gurdeep Huang MD STUD Y: [...] at 5:42 EDT Tel , Service support [phone], RAD/Chest PA and Lateral IMPRESSION: Very minimal left basilar atel ectasis. Otherwise, no acute process. Electronically Signed: Apolinar DO Elan at 5:42 EDT Tel , Service support [phone], CC: Minerva Vergara MD; Gurdeep Huang MD Explosive Ordnance Manager: Signed 24-Jan-2015 Pulmonary Function Report Comp Result: Comments: See Note; NOTES: [facility] Pulmonary Services/Neurology [address] [place] [address] Pulmonary Function Test (Comp) MR#: [id number] Acct: [id number] Name: IRIS ARAUJO Rep #: [id number] : 1940 75 From: Jeremie Schultz MD Referring Dr: Peace Curran Status: REG CLI Ordering Dr: Peace Curran Date: 01/18/15 Location: [facility] Sex: F C MAI E OF [...] MD C C: Gurdeep Huang MD T: [facility] JOB: [id number] SPIROMETRY Ref ULN/LLN Pre Pre Post Post [...] MD Date Dictated: 01/19/151645 Date Transcribed: 01/19/151645 Explosive Ordnance Manager: Signed 19-Jan-2015 Inital Evaluation - PT Result: Comments: See Note; NOTES: [facility] [address] [facility] [place] [address] Fax REHABILITATION SERVICES INITIAL EVALUATION MR#: [id number] Acct: [id number] Name: IRIS ARRIAGA Rep #: [id number] : 1940 75 From: Kelvin Newman Referring Dr.: Minerva Vergaar MD Status: REG RCR Insurance: SHYAM NA [...] dizzyness, no obvious LE neuropathy. Live with [employer] in two story house, can do step s with rail. Basement sometimes for laundry but tries to minimize it due to fatigue. Basic ADLs I. Enjoys eating and reading and walking with . Shops with [employer], no AD. - Objective Objective: Ambulates with [...] Physicians Signature Date 10-Jan-2015 ELECTROCARDIOGRAM, COMPLETE (ECG) (37564) Result: [MEASUREMENTS ANALYSIS] Date of Test: 08/09/2015 10:29:14; Heart Rate: 78; [place] Interval: 230; QRS: 114; QT Interval: 438; Corrected QT Interval (QTc): 469; P Wave [place]: 69; QRS [place]: -7; T [place] : 22; Blood Pressure: 140/90 [ECG DIAGNOSTIC STATEMENTS] Date of Test: 08/09/2015 10:29:14; Summary: Sinus Rhythm -First degree A-V block -Frequent pvcs - ventricular bigeminy Viridiana = 230- Nonspecific T-abnormality. ABNORMAL [MEASUREMENTS ANALYSIS] Date of Test: 08/09/2015 10:29:10; Heart Rate: 78; [place] Interval: 230; QRS: 114; QT Interval: 438; Corrected QT Interval (QTc): 469; P Wave [place]: 69; QRS [address] [place]: -7; T Wave [place]: 22; Blood Pressure: 140/90 [ECG DIAGNOSTIC STATEMENTS] Date of Test: 08/09/2015 10:29:10; Summary: Sinus Rhythm -First degree A-V block -Frequent pvcs -ventricular bigeminy Viridiana = 230- Nonspecific T- abnormality. ABNORMAL 05-Jan-2015 PT Discharge Summary Result: Comments: See Note; NOTES: [facility] [facility] [address] [address] [place], [place] [address] Fax REHABILITATION SERVICES DISCHARGE SUMMARY MR#: [id number] Acct: [id number] Name: IRIS ARRIAGA Rep #: [id number] : 1940 74 From: Kelvin Newman Referring Dr.: Tiffanie Saha DO Status: REG RCR Eval Date: Cheryl Date: DATE OF SERVICE: 01/04/2015 PHYSICIAN: Tiffanie [...] program. Kelvin Newman, PT T: LORI JOB: [id number] <Electronically signed by Kelvin Newman > 01/05/15 0931 CC: Signed 24-Nov-2014 Inital Evaluation - PT Result: Comments: See Note; NOTES: [facility] [address] [place] [address] Fax REHABILITATION SERVICES INITIAL EVALUATION MR#: [id number] Acct: [id number] Name: IRIS ARRIAGA Rep #: [id number] : 1940 74 From: Kelvin Newman Referring [...] is sleepin g well. She is a [employer] member here at [employer], but has not worked out here much [...] heat. Kelvin Newman, PT T: NTS JOB: [id number] <Electronically signed by Kelvin Newman > 11/24/14 0940 CC: Signed For [facility] only, by signing this I certify the plan of care. Physicians Signature Date 04-Nov-2014 Abdomen Single View Result: Comments: See Note; NOTES: [facility] Imaging Services [address] [place] [address] Radiology Report MR#: [id number] Acct: [id number] Name: IRIS ARRIAGA Rep #: [id number] : 1940 F 74 From: Ed Fink MD PCP: Minerva Vergara MD Status: REG CLI Study: Abdomen Single View Date of Exam: 11/04/14 Exam# [id number] Ordering Dr: Minerva Vergara MD STUDY : [...] Ed Fink MD at 14:10 EDT Tel [phone], Service support [phone], Fax RAD/Abdomen Single View IMPRESSION: Moderate amount of fecal material is seen throughout the colon. Electronically Signed: Ed Fink MD at 14: 10 EDT Tel [phone], Service support [phone], CC: Minerva Vergara MD Explosive Ordnance Manager: Signed 04-Nov-2014 Shoulder min 2 Views Result: Comments: See Note; NOTES: [facility] Imaging Services [address] [place] [address] Radiology Report MR#: [id number] Acct: [id number] Name: IRIS ARRIAGA Rep #: [id number] : 1940 F 74 From: Ed Fink MD PCP: Minerva Vergara MD Status: REG CLI Study: Shoulder min 2 Views Date of Exam: 11/04/14 Exam# [id number] Ordering Dr: Minerva Vergara MD STUD Y: [...] Ed Fink MD at 14:11 EDT Tel [phone], Service support [phone], CC: Minerva Vergara MD Explosive Ordnance Manager: Signed 21-Oct-2014 Echocardiogram Complete Result: Comments: See Note; NOTES: [facility] Cardiovascular Services [address] [place] [address] Echo Complete 10/19/14 1314 MR#: [id number] Acct: [id number] Name: CATLHEEN ARRIAGA Rep #: [id number] : 1940 74 From: Gurdeep Huang MD Attending Dr: Gurdeep Huang MD Status: REG [facility] Ordering Dr: Gurdeep Huang MD Date: 10/19/14 Location: [facility] Sex: F C Admitted: Procedure This [...] Physician: Lo Huang Performed By: Jeanine Arenas SHIREEN 10/19/141740 Date Gurdeep Huang MD CC: Minerva Vergara MD; Gurdeep Huang MD Date Dictated: 10/19/14 1314 Date Transcribed: 10/19/141740 Explosive Ordnance Manager: Signed 23-Sep-2014 12 Lead Electrocardiogram Result: Comments: See Note; NOTES: [facility] Cardiovascular Services [address] [place] [address] 12 Lead EKG 09/22/14 1440 MR#: [id number] Acct: [id number] Name: JARON ARRIAGA Rep #: [id number] : 1940 74 From: Peewee Cotto MD [...] Confirmed by PEEWEE COTTO ([id number]), manager editorial CAROLEE MARIEE ([id number]) on 09/23/2014 2: 44:4 7 PM Referred By: TRAV Confirmed By:PEEWEE COTTO 09/23/14 1444 Date Peewee Cotto MD CC: Minerva Vergara MD Date Dictated: 09/22/14 144 Date Transcribed: 09/22/141439 Explosive Ordnance Manager: Signed 22-Sep-2014 Discharge Instruction Result: Comments: See Note; NOTES: [facility] Medical Records Department [address] [place] [address] Discharge Instruction 09/22/14 1616 MR#: [id number] Acct: [id number] Name: IRIS ARRIAGA Rep #: [id number] : 1940 74 From: Kermit Verduzco MD [...] Department Summary Result: Comments: See Note; NOTES: [facility] Medical Records Department [address] [place] [address] Emergency Department Summary MR#: [id number] Acct: [id number] Name: IRIS ARRIAGA Rep #: [id number] : 1940 74 From: Kermit Verduzco MD [...] stood up quickly and went over to line prep cook, 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 She [...] Discharge. Kermit Verduzco MD T: NTS JOB: [id number] 09/22/145 <Electronically signed by Kermit Verduzco MD> Date Kermit Verduzco MD CC: Minerva Vergara MD Date Dictated: 09/22/141614 Date Transcribed: 09/22/141614 Explosive Ordnance Manager: Signed 22-Sep-2014 Chest PA and Lateral Result: Comments: See Note; NOTES: [facility] Imaging Services [address] [place] [address] Radiology Report MR#: [id number] Acct: [id number] Name: IRIS ARRIAGA Rep #: [id number] : 1940 F 74 From: Ed Fink MD PCP: Minerva Vergara MD Status: REG ER Study: Chest PA and Lateral Date of Exam: 09/22/14 Exam# [id number] Ordering Dr: Kermit Verduzco MD [facility] DY: X-RAY CHEST REASON FOR EXAM: Female, [...] CC: Minerva Vergara MD; Kermit Verduzco MD Explosive Ordnance Manager: Signed Family History Unknown Family Member [...] smoker Vital Signs Date Test Result Details 66-Ajz-31296:10 Temperature 97.4 f Comments: Method: Temporal Pulse [...] kg/m2 Body Surface Area Calculated 2.01 m2 89-Lvf-249158:15 Temperature 97.6 f Comments: Method: Temporal Pulse [...] kg/m2 Body Surface Area Calculated 1.98 m2 59-Dyc-367172:45 Temperature 97.6 f Comments: Method: Temporal Pulse [...] kg/m2 Body Surface Area Calculated 1.97 m2 73-Ylm-213725:15 Comments: sitting- spo2 on 2L- 89% P66 [...] 157 lb Results Date Description Value Details :05 Culture, Deep Wound Comments: [id number] [facility] [place], [place], [address] CUDW See Note (Normal) Comments: Gram StainGram Stain 4+ Red Blood Cells 1+ White Blood Cells 1+ Gram positive cocci Wound CultureIdentification and sensitivity to follow. ORGANISM 1: Staphylococcus aureusAmount Growth 3+ ORGANISM 2: Gram negative rodAmount Growth 1+ :57 Basic Metabolic Profile (BMP) Comments: [address] [place], [address] GAP 9 (Normal) Range: 5-15 CO2 32.0 [...] A.D.A. criteria.Please note revised GLUCOSE reference range nsfqfrelz92/02/2018. 14-Jul-20188:3 EGD ([facility]) See Note (Normal) Comments: [id number] [place], [address] 0 Comments: Patient: IRIS ARRIAGA : 1940 (78/F) Acct Num: [id number] Phys: Alejandro Armendariz MD Unit Num: [id number] Loc: EN Specimen: [id number] Received: 07/14/18952 Spec Type: EGD BIOPSY TISSUES 1 TISSUES: A. Gastric mucous membrane B. Gastric mucous membrane C. Esophageal mucous membrane COMMENT A. The results of immunohistoc hemistry for Helicobacter pylori will be reportedseparately ([id number]). C. Alcian blue/PAS stain with matched control [...] cassette. / SJ:juan j 07/14/18 TC:3 CPT: 41448 x3, 21686 HEADER OPERATION: EGD ([facility]) PRE-OP DIAGNOSIS: Anemia TISSUE SUBMITTED: A - [...] intestinal metaplasia. AM:juan j 07/15/18 Signed Abrahan [facility] 07/15/18 <signature on file> 14-Jul-20188:3 IMMUNOHISTOCHEMISTRY See Note (Normal) Comments: [id number] [place], [address] 0 Comments: Patient: IRIS ARRIAGA : 1940 (78/F) Acct Num: [id number] Phys: Kala TIRADO,Alejandro Unit Num: [id number] Loc: EN Specimen: [id number] Received: 07/15/18 - 1011 Spec Type: IMM AYSE TISSUES 1 TISSUES: A. Stomach, NOS SPECIMEN INFORMATION: Tissue Source: A - Lesser curvature healed ulcer biopsy Clinical Info: Anemia Specimen Number: [id number] CPT code: 94762 METHODOLOGY: Deparaffinized sections of prefer/formalin- fixed tissue [...] developed and their performance characteristics determined by [facility]. They may not have been cleared or approved by the U.S. Food and Drug Administration. The FDA has determined that such clearance or approval is not necessary. INTERPRETATION: A. L louise curvature healed ulcer biopsy: Negative for Helicobacter pylori organisms. AM:juan j 07/15/18 PHYSICIAN AND INSTITUTION [address] [address] Signed Abrahan Yonatan 07/15/18 <signature on file> :00 Comments: Non- Laboratory - refer to report for specific site [id number] TRANSFUSED PRODUCT: T AND S with Crossmatch, Red Cells COUNT: 2 (Normal) :00 Type AND Screen Comments: CMV NEG? NNumber of units to transfuse: 2Comments: hematoma rt knee surgeryReason for Ordering Blood: AcuteAre the blood/blood products to be transfused? YIs the patient having/had surgery? YGive When? When ReadyIrradiated? NLeukodepleted? YSurgery Date: 06/18/18Type of Surgery: [facility] [address] [place], [address] Antibody Screen NEGATIVE (Normal) BLOOD TYPE GEL AB POSITIVE (Normal) :00 Type AND Screen Comments: CMV NEG? NNumber of units to transfuse: 2Comments: hematoma rt knee surgeryReason for Ordering Blood: AcuteAre the blood/blood products to be transfused? YIs the patient having/had surgery? YGive When? When ReadyIrradiated? NLeukodepleted? YSurgery Date: 06/18/18Type of Surgery: [facility] [address] [facility] [place], [address] Antibody Screen NEGATIVE (Normal) BLOOD TYPE GEL AB POSITIVE (Normal) 0-Yrt-028142:10 Basic Metabolic Profile (BMP) Comments: [address] [place], [address] GAP 7 (Normal) Range: 5-15 [...] A.D.A. criteria.Please note revised GLUCOSE reference range jlgmvrnes29/02/2018. 3-Apj-421914:10 CBC W/Diff, Automated Comments: [address] [place], [address] Absolute Lymph 1.12 {X10_3/ul} (Normal) Range: 0.83-4.51 [...] 4.2-5.4 WBC 8.5 K/mm3 (Normal) Range: 4.4-11.0 5-Ety-123264:10 Liver Profile Comments: [address] [place], [place], [address] D BILI 0.14 mg/dL (Normal) Range: 0.00-0.30 T BILI 0.50 mg/dL (Normal) Range: 0.20-1.00 ALT 26 U/L (Normal) Range: 13-56 ALK P 78 U/L (Normal) Range: 45-117 AST 30 U/L (Normal) Range: 15-37 GLOB 4.3 g/dL (Abnormal) Range: 2.2-4.2 ALB 3.7 g/dL (Normal) Range: 3.2-5.0 T PROT 8.0 g/dL (Normal) Range: 6.4-8.2 8-Dui-420823:10 Partial Thromboplast Time Comments: [address] [place], [address] PTT 27.7 s (Normal) Range: 24.1-36.2 7-Rau-150079:10 Prothrombin Time w/INR Comments: [address] [facility] [place], [address] INR 1.4 (Normal) PROTIME 17.1 s (Abnormal) Range: 11.7-14.9 84-Nod-180129:20 Metabolic Panel, Basic Comments: PATIENT NOT FASTINGPERFORMED BY: [facility] HospitalSup[facility]013 [facility] [id number] ([id number]) Calcium 9.4 mg/dL (Normal) Range: 8.7-10.3 Carbon [...] 8-27 Glucose 72 mg/dL (Normal) Range: 65-99 24-Cja-78133:13 Pathology Report Comments: PERFORMED BY: DENZEL [facility] [place] Ewbh2706 [facility] [id number] BY: KWCYT [facility] Hfbwq76951 [facility] [id number] Clinical Information: [id number] See MATER Comments: Material submitted: .ABDOMINAL BIOPSYClinical [...] ENTIRELY SUBMITTEDIN ONE CASSETTE.BCO/SMIPathologist provided ICD-10:D21.4, L82.1CPT .312707 69-Twi-033715:35 Comprehensive Metabolic Profil Comments: [address] [place], [address] GAP 8 (Normal) Range: 5-15 CO2 33.0 mmol/L (Abnormal) Range: 21.0-32.0 CL 95 mmol/L (Abnormal) Range: 98-107 K 3.6 mmol/L (Normal) Range: 3.5-5.1 NA 136 mmol/L (Normal) Range: 136-145 T BILI 0.70 mg/dL (Normal) Range: 0.20-1.00 ALT 23 U/L (Normal) Range: 13-56 Comments: Please note revised ALT reference range zujkpadkx67/28/2018. ALK P 79 U/L (Normal) Range: 45-117 [...] Comments: Please note revised GLUCOSE reference range yxrwxzpso12/02/2018. 62-Lut-049896:35 Phosphorus Comments: Sso[address]evp[address] [place], [address] PHOS 4.0 mg/dL (Normal) Range: 2.5-4.9 60-Moe-501191:35 Uric Acid Comments: Jytpzxnqmq3385 [place], [address] URIC 10.9 mg/dL (Abnormal) Range: 2.6-6.0 Comments: The drugs N-Acetylcysteine and Metamizole may falselydepress this assay. 94-Eac-632534:19 Metabolic Panel, Comments: fax a copy to Dr. Tucker [phone] Huang [phone]; A courtesy copy of this report has been sent [phone], .PATIENT NOT FASTINGPERFORMED BY: [facility] Dub gc0577 [facility] ([address]) x [facility] [id number] Information: HARD DRAW/BUTTERFLY ALT (SGPT) 19 [iU]/L [...] Glucose, Serum 97 mg/dL (Normal) Range: 65-99 57-Gbh-663385:56 Basic Metabolic Profile (BMP) Comments: Order Date: 08/07/17Order Info: 0667-1 - BMPComments: now stat and prnWSelect Medical [facility]ty [facility] Oqfuxhlwwy76[address] [place], [address] GAP 8 (Normal) Range: 5-15 [...] 7-18 GLU 80 mg/dL (Normal) Range: 70-110 25-Cgx-240702:23 CREATININE FINGERSTICK Comments: [facility] Pybz1672 [place] [address] CREATININE WB 1.3 mg/dL (Abnormal) Range: 0.55-1.02 11-Sep-20171:20 CBC WITH MANUAL DIFF Comments: PATIENT NOT FASTINGPERFORMED BY: [facility] Jscewf3644 Hermelinda [facility] [id number] Information: NURSE DRAW (80679) Immature Grans (Abs) 0.0 {x10E3/uL} (Normal) Range: [...] Panel, Comprehensive Comments: PATIENT NOT FASTINGPERFORMED BY: LabCoRunnells Specialized HospitalEapfnx6871 [facility] [id number] (74762) ALT (SGPT) 11 [iU]/L (Normal) Range: 0-32 [...] 101 mg/dL (Abnormal) Range: 65-99 11-Sep-20171:20 URINALYSIS (60246) Comments: PATIENT NOT FASTINGPERFORMED BY: [facility]CoRunnells Specialized HospitalCcltwc1792 [facility] [id number] Microscopic Examination MICNIP (Normal) Comments: Microscopic not indicated and not performed. Nitrite, Urine Negative (Normal) Urobilinogen,Semi-Qn 1.0 mg/dL (Normal) Range: 0.2-1.0 Bilirubin Negative (Normal) Occult Blood Negative (Normal) Ketones Negative (Normal) Glucose Negative (Normal) Protein Trace (Normal) WBC Esterase Negative (Normal) Appearance Clear (Normal) Urine-Color Yellow (Normal) pH 7.0 (Normal) Range: 5.0-7.5 Specific Eldon 1.018 (Normal) Range: 1.005-1.030 6-Pax-935793:34 Basic Metabolic Profile (BMP) Comments: Maijvpdpxg4[address] [place], [place], [address] GAP 10 (Normal) Range: 5-15 CO2 26.0 [...] 7-18 GLU 92 mg/dL (Normal) Range: 70-110 27-Smy-642818:03 Basic Metabolic Profile (BMP) Comments: Order Date: 05/01/17Order Info: 0667-1 - *BMPComments: Reason: Ocdhnlklxx8783 [address] [facility] [place], [address] GAP 5 (Normal) Range: 5-15 CO2 28.0 [...] 7-18 GLU 64 mg/dL (Abnormal) Range: 70-110 95-Gxe-006244:16 Renal function Panel (10377) Comments: PATIENT NOT FASTINGPERFORMED BY: [facility] Fvodta4981 Hermelinda [facility] [id number] Albumin, Serum 4.3 g/dL (Normal) Range: 3.5-4.8 [...] Glucose, Serum 91 mg/dL (Normal) Range: 65-99 97-Wwn-86384:15 Urinalysis, Complete Comments: Order Date: 03/31/17How was Urine Obtained? DIRECTOR CASE MANAGEMENT TO [facility] Vcdmchaham[address] [place], [place], [address] MUCUS, URINE 0 SEEN {/hpf} (Normal) BACTERIA [...] Comments: Yes/No query for Sepsis Lactate Rule Y [address]es[address] [place], [place], [address] LACTIC ACID 0.8 mmol/L (Normal) Range: 0.4-2.0 :39 BNP,B-Type NATRIURETIC PEPTIDE Comments: Clznegkcny[address] [place], [place], [address] B-TYPE HUMBLE PEP 1017.0 pg/mL (Abnormal) Range: 0-100 :39 CBC W/Diff, Automated Comments: Quabizvhuv79[address] [facility] [address] [place], [place], [address] ANISO 1+ (Normal) Absolute Lymph 0.75 {X10_3/ul} [...] Serial specimen #1, #2, #3, or #4: [address] [place] [address] Emmumzoeeu6598 [place], [address] GAP 8 (Normal) Range: 5-15 CO2 26.0 [...] Serial specimen #1, #2, #3, or #4: 1 Onxwdxzsqx65[address]. [place], [address] TROPONIN-I 0.06 ng/mL (Normal) Comments: TROPONIN-I EXPECTED VALUES <0.05 NEGATIVE 0.06 - 0.59 AT RISK OF PA > OR = 0.60 SUGGEST PA :03 Bedside Glucose Comments: [facility] Ennq7761 [address] [place] [address] BEDSIDE GLU 146 mg/dL (Abnormal) Range: 70-110 Comments: MANAGEMENT OF PATIENT CARE PER NURSING PROTOCOL 18-Agq-444491:25 Vitamin D,25 Hydroxy Comments: Order Date: 01/17/17Order Info: 0788-1 - *Hepatic Function Panel3 ORDERING DOCTORS:REINA REID ORDERED: LIVER LIPIDDRSTANISLAV ORDERD: BMPMEMO CIGLENYSA ORDERED: TSH, VITD, [facility]5OLlxvpsvFlower [facility] pital Labor rnin4991 [address] [place], [address] Vitamin D 25-OH 35.2 ng/mL (Normal) Comments: Vitamin D 25(OH) Status Range Deficiency <20 ng/mL (50nmol/L) Insuffciency 20 - 30 ng/mL (50 - 75 nmol/L) Sufficiency 30 - 100 ng/mL (75 - 250 nmol/L) Toxicity >100 ng/mL (>250 nmol/L) 34-Cbx-612909:20 Basic Metabolic Profile (BMP) Comments: Order Date: 01/17/17Order Info: 0788-1 - *Hepatic Function Panel3 ORDERING DOCTORS:REINA REID ORDERED: LIVER LIPIDDR.NOVGisell ORDERD: BMPMARY CIESA ORDERED: TSH, VITD, L5KExbrk Date: 01/17/17Order Info: 28976-9 - *Lipid Profile CC PCPComments: 12 hours fasting, may have water. Y[address] [place], [place], [address] GAP 6 (Normal) Range: 5-15 CO2 31.0 [...] 7-18 GLU 109 mg/dL (Normal) Range: 70-110 91-Wra-635915:20 Lipid Profile Comments: Order Date: 01/17/17Order Info: 0788- 1 - *Hepatic Function Panel3 ORDERING DOCTORS:REINA REID ORDERED: LIVER LIPIDDRSTANISLAV ORDERD: BMPMEMO FRANKLIN ORDERED: TSH, VITD, N6ILywok Date: 01/17/17 Order Info: 36256-5 - *Lipid Profile CC PCPComments: 12 hours fasting, may have water. Pfbvfbigdk[address] [place], [place], [address] VLDL 20 mg/dL (Normal) Range: 5-40 LDL [...] 200-240 mg/dL Borderline >240 mg/dL High Risk 31-Wer-743651:20 Liver Profile Comments: Order Date: 01/17/17Order Info: 0788- 1 - *Hepatic Function Panel3 ORDERING DOCTORS:REINA REID ORDERED: LIVER LIPIDDR.NOVY ORDERD: BMPMARY CIESA ORDERED: TSH, VITD, A7LVjlkg Date: 01/17/17 Order Info: 13304-2 - *Lipid Profile CC PCPComments: 12 hours fasting, may have water. Vk[address]hlmcnqz[address] [place], [place], [address] D BILI 0.24 mg/dL (Normal) Range: 0.00-0.30 T BILI 0.60 mg/dL (Normal) Range: 0.20-1.00 ALT 27 U/L (Normal) Range: 12-78 ALK P 84 U/L (Normal) Range: 45-117 AST 27 U/L (Normal) Range: 15-37 GLOB 3.7 g/dL (Abnormal) Range: 2.3-3.5 ALB 3.8 g/dL (Normal) Range: 3.4-5.0 T PROT 7.5 g/dL (Normal) Range: 6.4-8.2 11-Wmq-705929:20 T4 Free Direct Comments: Order Date: 01/17/17Order Info: 0788- 1 - *Hepatic Function Panel3 ORDERING DOCTORS:REINA REID ORDERED: LIVER LIPIDDR.NOVY ORDERD: BMPMARY CIESA ORDERED: TSH, VITD, T5ZKgrgg Date: 01/17/17 Order Info: 52951-3 - *Lipid Profile CC PCPComments: 12 hours fasting, may have water. Uxdyirhcpz[address] [place], [place], [address] T4 FREE DIRECT 1.51 ng/dL (Abnormal) Range: 0.76-1.46 33-Xue-461378:20 Thyroid Stim Hormone (TSH) Comments: Order Date: 01/17/17Order Info: 0788-1 - *Hepatic Function Panel3 ORDERING DOCTORS:REINA REID ORDERED: LIVER LIPIDDRSTANISLAV ORDERD: LORNE BURNETTGLENYSStefanie ORDERED: TSH, VITD, A2PHpwot Date: 01/17/17Order Info: 71299-7 - *Lipid Profile CC PCPComments: 12 hours fasting, may have water. Xjnoaxqrzm5553 [place], [address] TSH 3.02 {uIU/mL} (Normal) Range: 0.358-3.74 27-Axe-115639:00 Pathology Report Comments: PERFORMED BY: My Visual BriefCYT [facility] [place] Cyto Rfllk69060 [facility] [id number] BY: [facility] Dermatopathology K[address] [id number] Information: [id number] See MATER Comments: Material submitted: .SHAVE BIOPSY OF RIGHT ABDOMENClinician provided ICD-10:L82.1Clinical history: . Note (Normal) Diagnosis:BENIGN VERRUCAL KERATOSIS.02/08/2017Electronically signed: .Gege Reece MD, DermatopathologistGross description: .SUBMITTED IN FORMALIN LABELED IRIS ARRIAGA AND IS DESIGNATEDRIGHT ABDOMEN IS A FRAGMENT OF FERGUSON TISSUE THAT MEASURES 1.4 X .8X .3 CM. THE MARGINS ARE INKED BLUE. THE SPECIMEN IS TRISECTEDAND SUBMITTED IN TOTO.XJW/BXSPathologist provided ICD-10:D23.5CPT .827845 28-Vef-249653:12 Basic Metabolic Profile (BMP) Comments: Order Date: 01/15/17Order Info: 0667-1 - *BMPComments: Reason: Pppbmkbntx0094 [address] [place], [place], [address] GAP 5 (Normal) Range: 5-15 CO2 32.0 [...] 7-18 GLU 82 mg/dL (Normal) Range: 70-110 2-Ohx-161243:04 Basic Metabolic Profile (BMP) Comments: Order Date: 01/08/17Order Info: 0667-1 - *BMPComments: Reason: BMP: 1 weekWSelect [facility] Qxieccikfd8681 [address], [place], [address] GAP 11 (Normal) Range: 5-15 CO2 28.0 [...] <126 mg/dLsuggests IMPAIRED HOMEOSTASIS per A.D.A. criteria. 86-Mgq-232999:28 Lipid Profile Comments: Order Date: 06/18/16Order Info: 0788- 1 - *Hepatic Function PanelLIVER AND LIPID WERE ORDERED BY INE LEVEL ORDERED BY Date: 06/18/16Order Info: 51512-8 - *Lipid Profi le CC PCPComments: 12 hours fasting, may have water. Cdgwuxbkfd3055 [facility] [place], [place], [address] VLDL 14 mg/dL (Normal) Range: 5-40 LDL [...] 200-240 mg/dL Borderline >240 mg/dL High Risk 52-Gwt-476450:28 Liver Profile Comments: Order Date: 06/18/16Order Info: 0788- 1 - *Hepatic Function PanelLIVER AND LIPID WERE ORDERED BY ATININE LEVEL ORDERED BY Date: 06/18/16Order Info: 27622-9 - *Lipid Profi le CC PCPComments: 12 hours fasting, may have water. Ocgpdrnzwf7963 [address] [place], [place], [address] D BILI 0.48 mg/dL (Abnormal) Range: 0.00-0.30 T BILI 1.10 mg/dL (Abnormal) Range: 0.20-1.00 ALT 62 U/L (Normal) Range: 12-78 ALK P 94 U/L (Normal) Range: 45-117 AST 59 U/L (Abnormal) Range: 15-37 GLOB 3.3 g/dL (Normal) Range: 2.3-3.5 ALB 3.7 g/dL (Normal) Range: 3.4-5.0 T PROT 7.0 g/dL (Normal) Range: 6.4-8.2 46-Apr-055159:28 Serum Creatinine AND GFR Comments: Order Date: 06/18/16Order Info: 0788-1 - *Hepatic Function PanelLIVER AND LIPID WERE ORDERED BY INE LEVEL ORDERED BY Date: 06/18/16Order Info: 32425-6 - *Lipid Profi le CC PCPComments: 12 hours fasting, december have water. Kwfwdwxfai3618 [facility] [address]. [place], [place], [address] EST GFR - AA 52 mL/min (Abnormal) Comments: GFR Calc EST GFR 43 mL/min (Abnormal) Comments: Non- GFR Calc CREAT,SERUM 1.29 mg/dL (Abnormal) Range: 0.55-1.02 Comments: The validity of the calculated GFR AND GFRAA in patients over70 years has not been determined. Clinical correlation isessential. 33-Evc-046781:36 Anticardiolipin IgA,G,M Comments: [facility] (refer to report [...] Positive: >20 - 80 High Positive: >80 10-Sao-846794:36 Comprehensive Metabolic Profil Comments: [address]urwex36[address] [place], [address] GAP 4 (Abnormal) Range: 5-15 CO2 26.0 [...] 7-18 GLU 103 mg/dL (Normal) Range: 70-110 92-Ggk-910060:36 Fact V Leiden Mutation Comments: [facility] (refer to report for specific site)refer to report for address and phone number COMMENT (Normal) Comments: Comment:Genetic counselors are available for health care providersto discuss results at [phone]).Methodology:DNA analysis of the Factor V gene was performed byallele-specific PCR. The d iagnostic sensitivity andspecificity is >99% for both. Molecular-based testing ishighly accurate, but as in any laboratory test, diagnosticerrors may occur. All test results must be combined withclin ical information for the most accurate interpretation.This test was developed and its performance characteristicsdetermined by [facility]. It has not been cleared or approvedby the Food and Drug Administra tion.References:Nicholas Armijo (1995). Clin Lab Med 16:169-186.Raul Cano, PhD, Cinthya May, PhD, Wilbur Clemente, PhD, Marly Wen M.S., PhD, Lilia Way, PhD, Kaia Reynaga, PhD, RACHANAChavez Juarez PhD, [facility] FACTOR V LEIDEN (Normal) Comments: [...] in the workup for venous thrombosis include [id number] mutation in the factor II (prothrombin) gene,protein S and C deficiency, and antithrombin deficiencies.Anticardiolipin antibody and lupus 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 an alysismay be appropriate for certain patients, as well ashomocysteine levels.Contact your local [facility] for information on how to orderadditional testing if desired. 14-Api-466452:36 Factor II, DNA Analysis Comments: [facility] (refer to report for specific site)refer to report for address and phone number COMMENT (Normal) Comments: Additional Information:Genetic Counselors are available for health care providersto discuss results at [phone]).Methodology:DNA analysis of the Factor II gene was performed by P CRamplificat ion followed by restriction analysis. Thediagnostic sensitivity is >99% for both. All the tests mustbe combined with clinical information for the most accurateinterpretation. Molecular-based testing is highly accurate,but as in any laboratory test, diagnostic errors may occur.This test was developed and its performance characteristicsdetermined by [facility]. It has not been cleared or approvedby the Food and Drug Administration.Poort SR, et al. Blood. 1996; 88:9608-8545.Robert ARAIZA. Circulation. 2004; 110:e15-e18.Stanislav I, et al. Arterioscler Thromb Vasc Biol. 1999;19:700-703.Raul Cano, Ph D, Cinthya May, PhD, Wilbur Clemente, PhD, Marly Wen MTammiSTammi, PhD, Lilia Way, PhD, Kaia Reynaga, PhD, [facility] SYSTEMChavez Juarez, PhD, [facility] COMMENT (Normal) Comments: Comment:A point mutation ([id number]) in the factor II (prothrombin)gene is the [...] individual mutations. This assay detects onlythe prothrombin J95544M mutation and does not measuregenetic abnormalities elsewhere in the genome. Otherthrombotic r isk factors may be pursued through systematicclinical laboratory analysis. These factors include mxfO250D (Leiden) mutation in the Factor V gene, plasmahomocysteine levels, as well as testing for defici encies ofantithrombin III, protein C and protein S. FACTOR II,DNA (Normal) Comments: Factor II, DNA Analysis NEGATIVE No mutation identified. :36 Partial Thromboplast Time Comments: Cnfncnogul60[address] [place], [place], [address] PTT 28.3 s (Normal) Range: 24.1-36.2 :36 Prothrombin Time w/INR Comments: P[address]omrvgq99[address] [place], [address] INR 1.3 (Normal) PROTIME 15.5 s (Abnormal) Range: 11.7-14.9 :39 CBC W/Diff, Automated Comments: Order Date: 12/02/16Order Info: 0184-1 - CBCDComments: coipy to Dr. jessie armendariz statOrder Date: 12/02/16Order Info: 0184-1 - CBCDComments: coipy to Dr. jessie armendariz statOrder Date: 12/02/16O rder Info: 0788-1 - LIVERComments: to stat copy to Dr. natalie armendariz [address]jceyas[address] [place], [place], [address] Absolute Lymph 1.13 {X10_3/ul} (Normal) Range: 0.83-4.51 [...] 4.2-5.4 WBC 8.8 K/mm3 (Normal) Range: 4.4-11.0 17-Enp-77696:39 Liver Profile Comments: Order Date: 12/02/16Order Info: 0788-1 - LIVEROrder Date: 12/02/16Order Info: 0788-1 - LIVERComments: to stat copy to Dr. estrada [facility] [address]hrp[address] [place], [place], [address] D BILI 0.28 mg/dL (Normal) Range: 0.00-0.30 T BILI 0.80 mg/dL (Normal) Range: 0.20-1.00 ALT 33 U/L (Normal) Range: 12-78 ALK P 71 U/L (Normal) Range: 45-117 AST 30 U/L (Normal) Range: 15-37 GLOB 2.9 g/dL (Normal) Range: 2.3-3.5 ALB 3.8 g/dL (Normal) Range: 3.4-5.0 T PROT 6.7 g/dL (Normal) Range: 6.4-8.2 37-Ybu-527750:38 URINE DAR CULTURE (NOREEN Comments: PATIENT NOT FASTINGPERFORMED BY: [facility] Xcfnli4926 [address] [place] [id number] Information: SRC:UC COL COUNT) (78375) Antimicrobial MIHEAD (Normal) Comments: S = Susceptible; [...] Colonies/mL (Abnormal) Urine Final report Culture,Comprehensive (Abnormal) 15-Ylu-92909:33 CBC W/Diff, Automated Comments: Order Date: 10/31/16Order Info: 0184-1 - CBCDOrder Info: 95673-4 - SEDOrder Date: 10/31/16Order Info: 0184-1 - CBCDOrder Info: 66705-9 - SEDOrder Date: 10/31/16Order Info: 3040-3 - LIPASEW [facility] [address]jhvltz[address] [place], [address] Absolute Lymph 1.10 {X10_3/ul} (Normal) Range: 0.83-4.51 [...] 4.2-5.4 WBC 11.1 K/mm3 (Abnormal) Range: 4.4-11.0 57-Xmy-41802:33 Comprehensive Metabolic Profil Comments: Order Date: 10/31/16Order Info: 0786-1 - CMPOrder Info: 1798-8 - AMYOrder Info: 3040-3 - LIPASEOrder Date: 10/31/16Order Info: 3040-3 - LIPASEComments: all [facility] Bqccwvipmu[address] [place] [address], [address] GAP 10 (Normal) Range: 5-15 CO2 26.0 [...] Date: 10/31/16Order Info: 0184-1 - CBCDOrder Info: 91696-9 - SEDOrder Date: 10/31/16Order Info: 0184-1 - CBCDOrder Info: 22597-6 - SEDOrder Date: 10/31/16Order Info: 3040-3 - LIPASEW [facility] Hcwrjwmfsg668[address] [place], [address] SED RATE 12 mm/h (Normal) Range: 0-30 :33 Lipase (18544) Comments: Order Date: 10/31/16Order Info: 0786- 1 - CMPOrder Info: 1798-8 - AMYOrder Info: 3040-3 - LIPASEOrder Date: 10/31/16Order Info: 3040-3 - LIPASEComments: all [facility] Aalvlcwpph68 [address] [place], [address] LIPASE 216 U/L (Normal) Range: 73-393 :33 Amylase (92653) Comments: Order Date: 10/31/16Order Info: 0786- 1 - CMPOrder Info: 1798-8 - AMYOrder Info: 3040-3 - LIPASEOrder Date: 10/31/16Order Info: 3040-3 - LIPASEComments: all [facility] Euzclpayug91 [address] [place], [address] QUENTIN 56 U/L (Normal) Range: 25-115 :45 Urinalysis, Office (42791) UA - LEUKOCYTE ESTERASE Negative (Normal) UA - NITRITE Negative (Normal) URINE UROBILINGN NOREEN TIMED Normal mg/dL (Normal) UA - PROTEIN Negative mg/dL (Normal) UA - PH 6 (Abnormal) UA - BLOOD Non Hemolyzed Trace (Normal) UA - SPECIFIC GRAVITY 1.015 (Normal) UA - KETONES Negative mg/dL (Normal) UA - BILIRUBIN Negative (Normal) UA - GLUCOSE Negative (Normal) 99-Opl-890719:00 Pathology Report Comments: PERFORMED BY: My Visual BriefMER[facility] [place] Cyto Bcbdr98313 [facility] [id number] Information: [id number] See MATER Comments: Material submitted: .SHAVE BIOPSY [...] ARE 4 PIECES TOTAL./CORCOR/CORPathologist provided ICD-10:L82.1, B07.8CPT .092215 0-Vzt-868781:50 Basic Metabolic Profile (BMP) Comments: DR TUCKER IS ORDERING THE BMPOrder Date: 06/28/16OV Order #: [id number] Osteopathic Clinic[address] [place], [place], [address] GAP 9 (Normal) Range: 5-15 CO2 28.0 [...] 7-18 GLU 89 mg/dL (Normal) Range: 70-110 7-Dnl-784430:50 Lipid Profile Comments: DR TUCKER IS ORDERING THE BMPOrder Date: 06/28/16OV Order #: [id number] Medical Specialty [facility] Xhhvoljqyc1081 [facility] [place], [place], [address] VLDL 14 mg/dL (Normal) Range: 5-40 LDL [...] 200-240 mg/dL Borderline >240 mg/dL High Risk 1-Usr-817878:50 Liver Profile Comments: DR TUCKER IS ORDERING THE BMPOrder Date: 06/28/16 Order #: [id number] [address]qb[address] [place], [place], [address] D BILI 0.11 mg/dL (Normal) Range: 0.00-0.30 T BILI 0.50 mg/dL (Normal) Range: 0.20-1.00 ALT 30 U/L (Normal) Range: 12-78 ALK P 70 U/L (Normal) Range: 50-136 AST 27 U/L (Normal) Range: 15-37 GLOB 3.8 g/dL (Abnormal) Range: 2.3-3.5 ALB 3.8 g/dL (Normal) Range: 3.4-5.0 T PROT 7.6 g/dL (Normal) Range: 6.4-8.2 8-Hhm-055155:50 T4 Total, Thyroxin Comments: DR TUCKER IS ORDERING THE BMPOrder Date: 06/28/16 Order #: [id number] Sfgzlerrub[address] [place], [place], [address] T4 THYROXIN 12.8 ug/dL (Normal) Range: 4.8-13.9 5-Edm-856666:50 Thyroid Stim Hormone (TSH) Comments: DR TUCKER IS ORDERING THE BMPOrder Date: 06/28/16 Order #: [id number] [address]zv[address]dvq[address] [place], [place], [address] TSH 2.26 {uIU/mL} (Normal) Range: 0.358-3.74 22-Vom-432579:26 URINE DAR CULTURE-IDENTIFICATN Comments: PATIENT NOT FASTINGPERFORMED BY: LabCoRunnells Specialized HospitalZlgnnz0377 [facility] [id number] Information: SRC:ANDREW (94200) Result 1 ECV (Abnormal) Comments: Escherichia coli, [...] S Urine Final report Culture,Comprehensi (Abnormal) ve 20-Len-05288:38 Urinalysis, Office (06959) UA - LEUKOCYTE ESTERASE Negative (Normal) UA - NITRITE Negative (Normal) URINE UROBILINGN NOREEN TIMED Normal mg/dL (Normal) UA - PROTEIN Negative mg/dL (Normal) UA - PH 5 (Abnormal) UA - BLOOD Hemolyzed Trace (Normal) UA - SPECIFIC GRAVITY 1.010 (Normal) UA - KETONES Negative mg/dL (Normal) UA - BILIRUBIN Negative (Normal) UA - GLUCOSE Negative (Normal) 67-Rov-079448:02 Comprehensive Metabolic Profil Comments: CMP IS FOR DR. Morasaroj [facility] Fdczvsdsbe6[address] [place], [place], [address] GAP 8 (Normal) Range: 5-15 CO2 27.0 [...] 7-18 GLU 85 mg/dL (Normal) Range: 70-110 90-Oqk-580729:02 T4 Total, Thyroxin Comments: CMP IS FOR DR. TUCKER [address]yjcjpbvep60[address] [place], [address] T4 THYROXIN 13.1 ug/dL (Normal) Range: 4.8-13.9 :02 Thyroid Stim Hormone (TSH) Comments: CMP IS FOR DR. TUCKER Othlezwook[address] [place], [address] TSH 1.34 {uIU/mL} (Normal) Range: 0.358-3.74 :25 COLON BIOPSY (CHOOSE See Note (Normal) Comments: Xcghpqcgwf20[address] [place], [address] SITE) Comments: Patient: IRIS ARRIAGA : 1940 (76/F) Acct Num: [id number] Phys: Clifford Gifford Unit Num: [id number] Loc: EN Specimen: [id number] Received: 01/30/1650 Spec Type: COLON BX TISSUES TISSUES: GROSS DESCRIPTION Received is one container labeled with the patient name and designated mid ascending polyp. The specimen consists of two irregular fragments of light tansoft tissue that in aggregate measure 0.3 x 0.2 x 0.1 cm. The specimen is totally submitted in one cassette. / ELLA:juan j 01/30/16 TC:5 CPT:18409 HEADER OPERATION: Colonoscopy PRE-OP DI AGNOSIS: Screening TISSUE SUBMITTED: Mid ascending polyp MICROSCOPIC DESCRIPTION Slides are reviewed. MICROSCOPIC DIAGNOSIS Mid ascending colon polyp, biopsy: Fragments of tubular adenoma. AM:juan j 01/31/16 Signed Abrahan Tam 01/31/16 <signature on file> 53-Tjm-103126:12 Basic Metabolic Profile (BMP) Comments: ORDERED BMPDR.[facility] ORDERED TSH T4 LIPID [facility] [address]iihvluv[address] [place], [address] GAP 6 (Normal) Range: 5-15 [...] 7-18 GLU 78 mg/dL (Normal) Range: 70-110 35-Dur-000354:12 Lipid Profile Comments: ORDERED BMPDR.REINA ORDERED TSH T4 LIPID [facility] [id number] [place], [place], [id number] VLDL 15 mg/dL (Normal) Range: 5-40 LDL [...] 200-240 mg/dL Borderline >240 mg/dL High Risk [id number]-[id number]:12 Liver Profile Comments: ORDERED KIMBERLEE ORDERED TSH T4 [facility] [id number] [place], [place], [id number] D BILI 0.17 mg/dL (Normal) Range: 0.00-0.30 T BILI 0.50 mg/dL (Normal) Range: 0.20-1.00 ALT 37 U/L (Normal) Range: 12-78 ALK P 68 U/L (Normal) Range: 50-136 AST 26 U/L (Normal) Range: 15-37 GLOB 3.8 g/dL (Abnormal) Range: 2.3-3.5 ALB 3.5 g/dL (Normal) Range: 3.4-5.0 T PROT 7.3 g/dL (Normal) Range: 6.4-8.2 [id number]-[id number]:12 T4 Total, Thyroxin Comments: ORDERED KIMBERLEE ORDERED TSH T4 [facility] [id number] [place], [address] T4 THYROXIN 14.3 ug/dL (Abnormal) Range: 4.8-13.9 70-Voe-170640:12 Thyroid Stim Hormone (TSH) Comments: ORDERED [facility] ORDERED TSH T4 [facility] [id number] [place], [address] TSH 2.32 {uIU/mL} (Normal) Range: 0.358-3.74 73-Eht-15657:37 Rapid Flu (76376 x 2) Influenza A Ag neg (Normal) 99-Jks-585368:28 Metabolic Panel, Basic Comments: PATIENT NOT FASTINGPERFORMED BY: [facility] Xqiexw5622 [facility] [id number] ([id number]) Calcium, Serum 8.7 mg/dL (Normal) Range: 8.7-10.3 [...] Glucose, Serum 70 mg/dL (Normal) Range: 65-99 36-Iaz-650349:28 CBC (Auto) (34561) Comments: PATIENT NOT FASTINGPERFORMED BY: [place] 4521270 [facility] [id number] Information: [id number] Platelets 224 {x10E3/uL} (Normal) Range: 150-379 RDW 14.8 % (Normal) Range: 12.3-15.4 MCHC 33.0 g/dL (Normal) Range: 31.5-35.7 MCH 31.9 pg (Normal) Range: 26.6-33.0 MCV 97 fL (Normal) Range: 79-97 Hematocrit 39.4 % (Normal) Range: 34.0-46.6 Hemoglobin 13.0 g/dL (Normal) Range: 11.1-15.9 RBC 4.08 {x10E6/uL} (Normal) Range: 3.77-5.28 WBC 8.1 {x10E3/uL} (Normal) Range: 3.4-10.8 70-Igh-374618:51 URINE DAR CULTURE-IDENTIFICATN Comments: PATIENT NOT FASTINGPERFORMED BY: [facility] [id number] Information: [id number] (00571) Result 1 MUG (Normal) Comments: Mixed urogenital flora2,000 Colonies/mL Urine Culture,Comprehensive Final report (Normal) 89-Edg-72901:28 Magnesium Comments: Jqvazfitzy75[address] [place], [place], [id number](056) MG 2.1 mg/dL (Normal) Range: 1.8-2.4 93-Sso-21918:28 Potassium Comments: Odbewvqaye6153 [place], [address] K 5.0 mmol/L (Normal) Range: 3.5-5.1 85-Zna-374375:12 LIPASE (74313) Comments: Test(s) Potassium, Serum called to [facility] on 11/21/2015 at 03:54 ESTPATIENT NOT FASTINGPERFORMED BY: [facility] [id number] Lipase, Serum 61 U/L (Abnormal) Range: 0-59 30-Aer-183529:12 AMYLASE (88806) Comments: Test(s) Potassium, Serum called to [facility] on 11/21/2015 at 03:54 ESTPATIENT NOT FASTINGPERFORMED BY: TARDIS-BOX.comFormerly [facility] [id number] Amylase, Serum 84 U/L (Normal) Range: 31-124 02-Mhm-381797:20 Urinalysis, Office (33863) UA - LEUKOCYTE ESTERASE Trace (Normal) UA - NITRITE Negative (Normal) URINE UROBILINGN NOREEN TIMED Normal mg/dL (Normal) UA - PROTEIN 100 mg/dL (Normal) UA - PH 6.0 (Normal) Comments: 5.5 UA - BLOOD Negative (Normal) UA - SPECIFIC GRAVITY 1.030 (Abnormal) UA - KETONES 15 mg/dL (Abnormal) UA - BILIRUBIN Moderate (Normal) UA - GLUCOSE Negative (Normal) 17-Vjf-831306:12 Metabolic Panel, Basic Comments: Test(s) Potassium, Serum called to [facility] on 11/21/2015 at 03:54 ESTPATIENT NOT FASTINGPERFORMED BY: T[facility].comFormerly [facility] [id number] (55124) Calcium, Serum 8.9 mg/dL (Normal) Range: 8.7-10.3 [...] Comments: Specimen received hemolyzed. Clinical correlation indicated. 47-Dts-881384:12 CBC WITH MANUAL DIFF Comments: Test(s) Potassium, Serum called to Gina Vergara on 11/21/2015 at 03:54 ESTPATIENT NOT FASTINGPERFORMED BY: MISHA [facility] Howbro9581 [facility] [id number] Information: [id number] (25904) Immature Grans (Abs) 0.0 {x10E3/uL} (Normal) Range: [...] 3.77-5.28 WBC 16.1 {x10E3/uL} (Abnormal) Range: 3.4-10.8 7-Jlx-559323:50 Urinalysis, Complete Comments: Order Date: 11/15/15How was Urine Obtained? DIRECTOR CASE MANAGEMENT TO [facility] Rfhbmweniy[address] [place], [place], [address] HYALINE CAST 5-10 SEEN {/lpf} (Normal) Range: [...] (Normal) CLARITY Clear (Normal) COLOR Yellow (Normal) 7-Mur-139436:00 Basic Metabolic Profile (BMP) Comments: Zvaowordib7453 [facility] [place], [place], [address] GAP 6 (Normal) Range: 5-15 CO2 24.0 [...] 7-18 GLU 88 mg/dL (Normal) Range: 70-110 6-Ryq-672490:00 CBC W/Diff, Automated Comments: T[address]ijgcu8[address] [place], [address] SMEAR COMMENT SCANNED (Normal) Absolute Lymph 1.15 [...] 4.2-5.4 WBC 16.9 K/mm3 (Abnormal) Range: 4.4-11.0 1-Cmy-344520:00 Lipase Comments: Utv[address] [place], [address] LIPASE 446 U/L (Abnormal) Range: 73-393 8-Xsl-860916:00 Liver Profile Comments: Lk[address]rdr[address] [place], [address] D BILI 0.06 mg/dL (Normal) Range: 0.00-0.30 T BILI 0.40 mg/dL (Normal) Range: 0.20-1.00 ALT 94 U/L (Abnormal) Range: 12-78 ALK P 66 U/L (Normal) Range: 50-136 AST 76 U/L (Abnormal) Range: 15-37 Comments: Moderate Hemolysis, Result may be falsely increased. GLOB 4.0 g/dL (Abnormal) Range: 2.3-3.5 ALB 3.3 g/dL (Abnormal) Range: 3.4-5.0 T PROT 7.3 g/dL (Normal) Range: 6.4-8.2 4-Cqi-922743:00 Thyroid Stim Hormone (TSH) Comments: J[address] [place], [address] TSH 1.12 {uIU/mL} (Normal) Range: 0.358-3.74 2-Ktb-093934:18 Thyroid Stim Hormone (TSH) Comments: Yud[address] [place], [address] TSH 0.59 {uIU/mL} (Normal) Range: 0.358-3.74 33-Yiy-361428:18 Pathology Report Comments: PERFORMED BY: My Visual BriefCYT [facility] Bybbd50223 [facility] [id number] BY: INDYL [facility] [address] [place] 4 [id number] BY: LX [facility] Xxgenik47860 [facility] [id number] Information: [id number] See MATER Comments: Material submitted: .SADA CHESTClinician [...] BISECTED AND SUBMITTED IN TOTO.XJW/TMZPathologist provided ICD-10:L57.0CPT .118799 57-Sbc-525821:40 Basic Metabolic Profile (BMP) Comments: 'TROP' Serial specimen #1, #2, #3, or #4: [address] [place] [address] [address] [place], [place], [address] GAP 7 (Normal) Range: 5-15 CO2 27.0 [...] 7-18 GLU 76 mg/dL (Normal) Range: 70-110 79-Cye-920494:40 BNP,B-Type NATRIURETIC PEPTIDE Comments: Abqfljaymt0480 [facility] [place], [place], [address] B-TYPE HUMBLE PEP 406.4 pg/mL (Abnormal) Range: 0-100 41-Fwc-153567:40 CBC W/Diff, Automated Comments: Mwuzjzdzcu1890 [facility] [address]. [place], [place], [address] Absolute Lymph 1.25 {X10_3/ul} (Normal) Range: 0.83-4.51 [...] 4.2-5.4 WBC 9.2 K/mm3 (Normal) Range: 4.4-11.0 76-Ioz-485113:40 Troponin-I Comments: 'TROP' Serial specimen #1, #2, #3, or #4: [address] [place] [address] Rynkr[address] [place], [address] TROPONIN-I 0.03 ng/mL (Normal) Comments: TROPONIN-I EXPECTED VALUES <0.05 NEGATIVE 0.06 - 0.59 AT RISK OF PA > OR = 0.60 SUGGEST PA 02-Gdy-104958:25 Urinalysis, Complete Comments: Order Date: 08/09/15How was Urine Obtained? CLEAN [facility] Zfceipiqfe[address] [place], [place], [address] MUCUS, URINE 0 SEEN {/hpf} (Normal) BACTERIA [...] (Normal) CLARITY Clear (Normal) COLOR Straw (Normal) 31-Qfn-094204:26 Basic Metabolic Profile (BMP) Comments: 'TROP' Serial specimen #1, #2, #3, or #4: [facility] Lafqepruqu8358 [address] [place], [place], [address] GAP 4 (Abnormal) Range: 5-15 CO2 29.0 [...] 7-18 GLU 66 mg/dL (Abnormal) Range: 70-110 14-Lnq-790847:26 CBC W/Diff, Automated Comments: Bhtkofonlt3261 [address] [place], [place], [address] SMEAR COMMENT SCANNED (Normal) Absolute Lymph 2.04 [...] 4.2-5.4 WBC 18.6 K/mm3 (Abnormal) Range: 4.4-11.0 18-Sty-818334:26 Prothrombin Time w/INR Comments: Qf[address] [place], [place], [address] INR 1.1 (Normal) PROTIME 14.0 s (Normal) Range: 11.7-14.9 04-Tgd-445528:26 Troponin-I Comments: 'TROP' Serial specimen #1, #2, #3, or #4: [address] [place] [address] [place], [address] TROPONIN-I < 0.02 ng/mL (Normal) Comments: TROPONIN-I EXPECTED VALUES <0.05 NEGATIVE 0.06 - 0.59 AT RISK OF PA > OR = 0.60 SUGGEST PA 20-Eqe-060272:02 Bilirubin, Direct Comments: ORDERED LIPID,LIVERDR.BONEZZI ORDERED CBCD,TSH,LIPID,CMP,UAC T[address]cyp[address] [place], [place], [address] D BILI 0.15 mg/dL (Normal) Range: 0.00-0.30 16-Xbb-983382:02 CBC W/Diff, Automated Comments: Mc[address] [place], [address] Absolute Lymph 0.99 {X10_3/ul} (Normal) [...] 4.2-5.4 WBC 7.5 K/mm3 (Normal) Range: 4.4-11.0 62-Vxn-813429:02 Comprehensive Metabolic Comments: ORDERED LIPID,LIVERDR.BONEZZI ORDERED CBCD,TSH,LIPID,CMP,[facility] Ed[address]oscscm[address] [place], [address] Profil GAP 8 (Normal) Range: 5-15 CO2 [...] 7-18 GLU 80 mg/dL (Normal) Range: 70-110 73-Yhm-317424:02 Lipid Profile Comments: ORDERED LIPID,LIVERDR.CLARY ORDERED CBCD,TSH,LIPID,CMP,[facility] Cwlfutzuoq8[address] [place], [place], [address] VLDL 18 mg/dL (Normal) Range: 5-40 LDL [...] 200-240 mg/dL Borderline >240 mg/dL High Risk 45-Zsf-918995:02 Thyroid Stim Hormone Comments: ORDERED LIPID,LIVERDR.CLARY ORDERED CBCD,TSH,LIPID,CMP,UAC [address]ij[address] [place], [address] (TSH) TSH 1.37 {uIU/mL} (Normal) Range: 0.358-3.74 23-Qnr-432667:02 Urinalysis, Complete Comments: How was Urine Obtained? CLEAN [facility] Wdvkgnlaku29[address] [place], [address] MUCUS, URINE 0 SEEN {/hpf} (Normal) BACTERIA [...] (Normal) CLARITY Clear (Normal) COLOR Straw (Normal) 20-Hro-069957:40 Basic Metabolic Profile (BMP) Comments: REDRAW. PREVIOUS SPECIMEN REJECTED DUE TOHEMOLYSIS. 06/06/15 Collin[address]. Xpb[address]fwony[address] [place], [address] GAP 6 (Normal) Range: 5-15 [...] <126 mg/dLsuggests IMPAIRED HOMEOSTASIS per A.D.A. criteria. 12-Vie-192599:10 CBC W/Diff, Automated Comments: [address]gwr[address] [place], [place], [address] Absolute Lymph 1.33 {X10_3/ul} (Normal) Range: 0.83-4.51 [...] 4.2-5.4 WBC 9.3 K/mm3 (Normal) Range: 4.4-11.0 99-Jwl-807079:16 Renal function Panel Comments: PATIENT NOT FASTINGPERFORMED BY: [facility]Co[facility] HospitalKmrexj4474 [facility] [id number] Information: [id number] (38986) Albumin, Serum 3.6 g/dL (Normal) Range: 3.5-4.8 [...] (Abnormal) Range: 65-99 Comments: Client Requested Flag 19-Epa-050023:57 CK-MB Quantitative and Index Comments: Serial Specimen #1, #2 or #3? 2Comments: Should be drawn 2H after initial Troponin obtained'TROP' Serial specimen #1, #2, #3, or #4: 2Test performed at: [address]aogxxrcli7[address] [place], [place] [address] CPKMB 1.1 ng/mL (Normal) Range: 0.0-5.0 Comments: CK-MB and RI Interpretation MB Relative Index Non-AMI <or= 5 NA Indeterminate > 5 <or= 4 AMI > 5 > 4 CPK TOTAL 48 U/L (Normal) Range: 26-192 14-Uke-885360:57 Troponin-I Comments: Serial Specimen #1, #2 or #3? 2Comments: Should be drawn 2H after initial Troponin obtained'TROP' Serial specimen #1, #2, #3, or #4: 2Test performed at: Nkbocnbymm0699 [facility] [place] [address] TROPONIN-I < 0.02 ng/mL (Normal) Comments: TROPONIN-I EXPECTED VALUES <0.05 NEGATIVE 0.06 - 0.59 AT RISK OF PA > OR = 0.60 SUGGEST PA 13-Jel-165883:33 Comprehensive Metabolic Profil Comments: Test performed at: Wmirjavwxj9430 [facility] [place], [place] [address] GAP 6 (Normal) Range: 5-15 CO2 27.0 [...] Comments: Please note revised CREATININE reference range qxcobvlec92/22/2015. BUN 35 mg/dL (Abnormal) Range: 7-18 GLU 53 mg/dL (Abnormal) Range: 70-110 76-Rck-836279:33 CRP Comments: Test performed at: [address]zyboqclq35[address] [place] [address] C-REACTIVE PROT < 2.90 mg/L (Normal) Range: 0.0-3.0 Comments: C-Reactive Protein (CRP) provides useful information for thediagnosis, therapy and monitoring of inflammatory processesand associated diseases. For the evaluation of Relative Riskfor Cardiovascular Dise ase, a High Sensitivity CRP (HSCRP)should be ordered. :33 Erythrocyte Sed Rate Comments: Test performed at: Ifefzpkpfu45[address] [place] [address] SED RATE 7 mm/h (Normal) Range: 0-30 63-Xtz-466107:38 URINE DAR CULTURE-NOREEN COL Comments: PATIENT NOT FASTINGPERFORMED BY: LabCoMichael Ville 6275970 [facility] [id number] Information: SRC:URC [id number] COUNT (12461) Result 1 NG36 (Normal) Comments: No growth in 36 - 48 hours. Urine Culture,Comprehensive Final report (Normal) 10-Ixe-606160:07 Urinalysis, Office (42109) UA - LEUKOCYTE ESTERASE Trace (Normal) UA - NITRITE Negative (Normal) URINE UROBILINGN NOREEN TIMED 2 mg/dL (Normal) UA - PROTEIN Negative mg/dL (Normal) UA - PH 5.0 (Normal) UA - BLOOD Negative (Normal) UA - SPECIFIC GRAVITY 1.015 (Normal) UA - KETONES Small mg/dL (Normal) UA - BILIRUBIN Negative (Normal) UA - GLUCOSE Negative (Normal) 08-Feb-20159:39 Pathology Report Comments: PERFORMED BY: My Visual BriefCYT [facility] [place] Cyto Ababi91401 [facility] [id number] BY: [facility] Dermatopathology Gicmosf[address] [id number] Information: [id number] See MATER Comments: Material submitted: .SHAVE BIOPSY [...] HOLOGIC CORRELATIONIS RECOMMENDED.02/13/2015Electronically signed: .Gege Reece MD, [place] topathologistGross description: .RECEIVED IS A CONTAINER LABELED IRIS ARRIAGA AND DESIGNATEDUPPER LESION ON CHEEK. IN FORMALIN IS A FERGUSON TISSUE MEASURING 4 X4 X 1 MM. IT IS INKED PURPLE, BISECTED, AND BOTH HALVES ARESUBMITTED IN A SINGLE CASSETTE.COR/BXSPathologist provided ICD-9:686.9, 682.0CPT .556238, 296034, 498372 58-Jbo-936595:29 T4 Total, Thyroxin Comments: PER PT ONLY TSH AND T4 TODAYTest performed at: Wpyibabrkc94[address] [place], [place] [address] T4 THYROXIN 13.2 ug/dL (Normal) Range: 4.8-13.9 30-Dgn-702865:29 Thyroid Stim Hormone (TSH) Comments: PER PT ONLY TSH AND T4 TODAYTest performed at: Yqscbzamfr6536 [place] [address] TSH 3.74 {uIU/mL} (Normal) Range: 0.358-3.74 47-Ybi-617966:17 URINE DAR CULTURE-NOREEN COL Comments: PATIENT NOT FASTINGPERFORMED BY: MISHA [facility] Nacrpo[address] [place] [id number] Information: SRC: URINE COUNT (43106) Result 1 NG36 (Normal) Comments: No growth in 36 - 48 hours. Urine Culture,Comprehensive Final report (Normal) 71-Dda-330969:48 Urinalysis, Office (94427) UA - LEUKOCYTE ESTERASE Negative (Normal) UA - NITRITE Negative (Normal) URINE UROBILINGN NOREEN TIMED Normal mg/dL (Normal) UA - PROTEIN Negative mg/dL (Normal) UA - PH 6.0 (Normal) Comments: 5.5 UA - BLOOD Negative (Normal) UA - SPECIFIC GRAVITY 1.010 (Normal) UA - KETONES Negative mg/dL (Normal) UA - BILIRUBIN Negative (Normal) UA - GLUCOSE Negative (Normal) 61-Ukv-854472:31 Basic Metabolic Profile (BMP) Comments: Test performed at: Vzbpkvwxqs6707 [facility] [place] [address] GAP 5 (Normal) Range: 5-15 CO2 27.0 mmol/L (Normal) Range: 21.0-32.0 CL 103 mmol/L (Normal) Range: 98-107 K 4.8 mmol/L (Normal) Range: 3.5-5.1 NA 135 mmol/L (Abnormal) Range: 136-145 CA 8.7 mg/dL (Normal) Range: 8.5-10.1 BUN/CRE 16.4 {RATIO} (Normal) Range: 10-20 CREAT,SERUM 1.1 mg/dL (Abnormal) Range: 0.6-1.0 BUN 18 mg/dL (Normal) Range: 7-18 GLU 89 mg/dL (Normal) Range: 70-110 38-Zpa-290439:31 Lipid Profile Comments: Test performed at: Kccuwjshxq5732 [facility] [place] [address] VLDL 22 mg/dL (Normal) Range: [...] 200-240 mg/dL Borderline >240 mg/dL High Risk 95-Lht-996006:31 Liver Profile Comments: Test performed at: Najhbpcwtd6835 [facility] [place] [address] D BILI 0.10 mg/dL (Normal) Range: 0.00-0.30 T BILI 0.30 mg/dL (Normal) Range: 0.00-4.00 ALT 35 U/L (Normal) Range: 12-78 ALK P 85 U/L (Normal) Range: 50-136 AST 38 U/L (Abnormal) Range: 15-37 GLOB 3.6 g/dL (Normal) Range: 2.7-4.2 ALB 3.7 g/dL (Normal) Range: 3.4-5.0 T PROT 7.3 g/dL (Normal) Range: 6.4-8.2 47-Kgw-872066:31 T4 Total, Thyroxin Comments: Test performed at: Dqnvumyzdp5385 [facility] [place] [address] T4 THYROXIN 14.9 ug/dL (Abnormal) Range: 4.8-13.9 78-Lci-834039:31 Thyroid Stim Hormone (TSH) Comments: Test performed at: Crzozrojxm8130 [place] [address] TSH 2.32 {uIU/mL} (Normal) Range: 0.358-3.74 23-Jnj-387317:30 CBC W/Diff, Automated Comments: Test performed at: Okmvobyeyn6249 [facility] [place] [address] Absolute Lymph 1.12 {X10_3/ul} (Normal) [...] 4.2-5.4 WBC 8.8 K/mm3 (Normal) Range: 4.4-11.0 03-Uod-782367:30 Urinalysis, Complete Comments: DR HUANG LIVER LIPID TSH T4 ONLYHow was Urine Obtained? CLEAN CATCHTest performed at: Rqpxqnrskp9628 [address] [place], [place] [address] HYALINE CAST 0-5 SEEN {/lpf} (Normal) Range: [...] CLARITY Sl. Cloudy (Normal) COLOR Yellow (Normal) 36-Xot-191076:09 CBC W/Diff, Automated Comments: Test performed at: Cwupfevmcm3966 [address] [place], [place] [address] Absolute Lymph 0.85 {X10_3/ul} (Normal) Range: 0.83-4.51 [...] #1, #2, #3, or #4: 1Test performed at: Vehvkojxlo2[address] [place] [address] GAP 5 (Normal) Range: 5-15 [...] <126 mg/dLsuggests IMPAIRED HOMEOSTASIS per A.D.A. criteria. 12-Zwm-692599:09 Troponin-I Comments: 'TROP' Serial specimen #1, #2, #3, or #4: 1Test performed at: Ufgojjfmko0532 [facility] [place] [address] TROPONIN-I < 0.02 ng/mL (Normal) Comments: TROPONIN-I EXPECTED VALUES <0.05 NEGATIVE 0.06 - 0.59 AT RISK OF PA > OR = 0.60 SUGGEST PA 39-Kux-617520:21 Rapid Flu (61112 x 2) Influenza A Ag neg (Normal) 2-Fqe-779808:05 TSH 6.19 {uIU/mL} (Abnormal) Range: 0.358-3.74 :54 [...] CHOL 151 mg/dL (Normal) Comments: <200 mg/dL Hfjpzpmlv382-854 mg/dL Borderline>240 mg/dL High Risk :54 TSH 0.72 {uIU/mL} (Normal) Range: 0.358-3.74 38-Ocm-588362:37 Rapid Strep Test, Office (25199) Comments: neg Rapid Strep Test, Office Negative (Normal) 93-Oca-531380:03 DAR CULTURE-OTHER (63559) Comments: PATIENT NOT FASTINGPERFORMED BY: [facility] Umkfle7435 [facility] [id number] Information: SRC:THRT [id number] Result 1 RRF (Normal) Comments: Routine respiratory julia Upper Respiratory Culture Final report (Normal) 00-Sqo-145792:12 Urinalysis, Office (02390) UA - BILIRUBIN Negative (Normal) UA - BLOOD Hemolyzed Trace (Normal) UA - GLUCOSE Negative (Normal) UA - KETONES Negative mg/dL (Normal) UA - LEUKOCYTE ESTERASE Trace (Normal) UA - NITRITE Negative (Normal) UA - PH 6.0 (Normal) UA - PROTEIN Negative mg/dL (Normal) UA - SPECIFIC GRAVITY 1.010 (Normal) URINE UROBILINGN NOREEN TIMED 2 mg/dL (Normal) 21-Cci-982180:53 DEXA BONE DENSITY STUDY (HP) Radiology Report [...] Fink M.D.July 29, 2012 at 2:05:06 PM [id number] Signed GP/GP If you are the referring physician and would like to consult with theradiologist who provided this interpretation, please contact Aleida Osei at [phone]. If this radiologist is unavailable, youwil l [...] 07/29/12 1410 Sign by: Ed Fink MD 66-Uve-732977:37 BILAT SCRN DIGITAL & CAD Radiology Report [...] Fink M.D.July 14, 2012 at 1:35:04 PM [id number] Signed GP/GP If you are the referring physician and would like to consult with theradiologist who provided this interpretation, please contact Aleida Osei at [phone]. If this radiologist is unavailable, youwill be directed to another radiologist to assist. If you are a patient with a questi on regarding this report, pleasecontactyour referring physician directly. Professional Interpretation Provided By: [employer], Phone , These documents contain legally prot [...] mg/dL Comments: Order Date: 02/06/12OV Order #: [id number] ID: [id number] Comments: DX = 272.4 JLS [...] 12 hours, may have water.OV Order #: [id number] Order #: [id number] Comments: Reason:Interface Comments: DX = 427.31 [facility] 02/07/12OV Order #: [id number] Comments: DX = 428.0 [facility] 02/07/12 Range: 0.00-0.30 81-Ogf-329626:57 CMP Comments: Order Date: 02/06/12OV Order #: [id number] ID: [id number] Comments: DX = 272.4 [facility] 02/07/12Diagnosis: V58.69 - LONG-TERM USE OF HIGH [...] 12 hours, may have water.OV Order #: [id number] Order #: [id number] Comments: Reason:Interface Comments: DX = 427.31 [facility] 02/07/12OV Order #: [id number] Comments: DX = 428.0 [facility] 02/07/12 GAP 6 (Normal) Range: 5-15 CL [...] 7-18 GLU 92 mg/dL (Normal) Range: 70-110 49-Cvg-974895:57 LIPID Comments: Order Date: 02/06/12OV Order #: [id number] ID: [id number] Comments: DX = 272.4 [facility] 02/07/12Diagnosis: V58.69 - LONG-TERM USE OF HIGH [...] 12 hours, may have water.OV Order #: [id number] Order #: [id number] Comments: Reason:Interface Comments: DX = 427.31 S 02/07/12OV Order #: [id number] Comments: DX = 428.0 [facility] 02/07/12 VLDL 13 mg/dL (Normal) Range: 5-40 [...] 200-240 mg/dL Borderline >240 mg/dL High Risk 94-Dkr-608783:57 PHOS 4.0 mg/dL (Normal) Comments: Order Date: 02/06/12OV Order #: [id number] ID: [id number] Comments: DX = 272.4 [facility] 02/07/12Diagnosis: V58.69 - LONG-TERM USE OF HIGH [...] 12 hours, may have water.OV Order #: [id number] Order #: [id number] Comments: Reason:Interface Comments: DX = 427.31 [facility] 02/07/12OV Order #: [id number] Comments: DX = 428.0 [facility] 02/07/12 Range: 2.5-4.9 :57 T4 12.6 ug/dL (Normal) Comments: Order Date: 02/06/12OV Order #: [id number] ID: [id number] Comments: DX = 272.4 [facility] 02/07/12Diagnosis: V58.69 - LONG-TERM USE OF HIGH [...] 12 hours, may have water.OV Order #: [id number] Order #: [id number] Comments: Reason:Interface Comments: DX = 427.31 [facility] 02/07/12OV Order #: [id number] Comments: DX = 428.0 [facility] 02/07/12 Range: 4.8-13.9 :57 T4F 1.76 ng/dL (Abnormal) Comments: Order Date: 02/06/12OV Order #: [id number] ID: [id number] Comments: DX = 272.4 [facility] 02/07/12Diagnosis: V58.69 - LONG-TERM USE OF HIGH [...] 12 hours, may have water.OV Order #: [id number] Order #: [id number] Comments: Reason:Interface Comments: DX = 427.31 [facility] 02/07/12OV Order #: [id number] Comments: DX = 428.0 [facility] 02/07/12 Range: 0.76-1.46 54-Iva-796334:57 TSH 2.47 {uIU/mL} (Normal) Comments: Order Date: 02/06/12OV Order #: [id number] ID: [id number] Comments: DX = 272.4 S [...] 12 hours, may have water.OV Order #: [id number] Order #: [id number] Comments: Reason:Interface Comments: DX = 427.31 [facility] 02/07/12OV Order #: [id number] Comments: DX = 428.0 [facility] 02/07/12 Range: 0.358-3.74 62-Igw-810839:47 CBCD Comments: DR. VERGARA ORDERED CMP, RENAL, [...] 4.2-5.4 WBC 6.7 K/mm3 (Normal) Range: 4.4-11.0 9-Msn-524167:21 CBCD ANC 5.1 3/uL (Normal) Range: 2.0-7.7 [...] 4.2-5.4 WBC 7.8 K/mm3 (Normal) Range: 4.4-11.0 1-Kvw-076761:21 LIPID Comments: ORDERED TSH LIPID T4DR.CLARY ORDERED [...] VALVE PROLAPSEDiagnosis: 272.4 - HYPERLIPIDEMIAOV Order #: [id number] ID: [id number] Order #: [id number] Comments: Reason:OV Order #: [id number] VLDL 10 mg/dL (Normal) Range: 5-40 LDL [...] 200-240 mg/dL Borderline >240 mg/dL High Risk 0-Alf-831658:21 RENAL Comments: ORDERED TSH LIPID T4DRCLOVER ORDERED [...] VALVE PROLAPSEDiagnosis: 272.4 - HYPERLIPIDEMIAOV Order #: [id number] ID: [id number] Order #: [id number] Comments: Reason:OV Order #: [id number] CO2 26.0 mmol/L (Normal) Range: 21.0-32.0 CL [...] 7-18 GLU 87 mg/dL (Normal) Range: 70-110 5-Iql-001964:21 T4 15.1 ug/dL (Abnormal) Comments: ORDERED TSH [...] VALVE PROLAPSEDiagnosis: 272.4 - HYPERLIPIDEMIAOV Order #: [id number] ID: [id number] Order #: [id number] Comments: Reason:OV Order #: [id number] Range: 4.8-13.9 5-Vke-156844:21 TSH 1.69 {uIU/mL} (Normal) Comments: ORDERED TSH [...] VALVE PROLAPSEDiagnosis: 272.4 - HYPERLIPIDEMIAOV Order #: [id number] ID: [id number] Order #: [id number] Comments: Reason:OV Order #: [id number] Range: 0.358-3.74 :57 BMP GAP 7 (Normal) [...] :57 TSH 2.61 {uIU/mL} (Normal) Range: 0.358-3.74 71-Ilb-490076:38 URINE DAR CULTURE-NOREEN COL Comments: PATIENT NOT FASTINGPERFORMED BY: [facility] [facility] [id number] Information: SRC: URINE COUNT (91317) Result 1 NG36 (Normal) Comments: No growth in 36 - 48 hours. Urine Culture,Comprehensive Final report (Normal) :42 Urinalysis, Office (99359) UA - BILIRUBIN Negative (Normal) UA - BLOOD Non Hemolyzed Trace (Normal) UA - GLUCOSE Negative (Normal) UA - KETONES Negative mg/dL (Normal) UA - LEUKOCYTE ESTERASE Trace (Abnormal) UA - NITRITE Negative (Normal) UA - PH 5.0 (Normal) UA - PROTEIN Negative mg/dL (Normal) UA - SPECIFIC GRAVITY 1.005 (Normal) URINE UROBILINGN NOREEN TIMED Normal mg/dL (Normal) 10-Isi-811042:03 Urinalysis, Office (53200) UA - BILIRUBIN Negative (Normal) UA - [...] 7-18 GLU 88 mg/dL (Normal) Range: 70-110 5-Uma-772407:00 LIPID Comments: GEMMA ORDERED BMP MG T4 [...] 200-240 mg/dL Borderline >240 mg/dL High Risk 6-Niu-654407:00 LIVER Comments: GEMMA ORDERED BMP MG T4 [...] LIPIDBONEZZI ORDERED BMP TSH T4F Range: 0.358-3.74 9-Zmk-220933:46 Anaerobic and Aerobic Comments: PERFORMED BY: [facility] Mleujv[address] [facility] [id number] Information: SRC:EB RIGHT ELBOW Culture Result 1 NG36 (Normal) Comments: No growth in 36 - 48 hours. Aerobic Culture Final report (Normal) Result 1 [id number] (Normal) Comments: No aerobic or anaerobic growth in 72 hours. Anaerobic Culture Final report (Normal) 6-Dng-655694:39 Urinalysis, Office (94375) UA - BILIRUBIN Negative (Normal) UA - BLOOD Negative (Normal) UA - GLUCOSE Negative (Normal) UA - KETONES Negative mg/dL (Normal) UA - LEUKOCYTE ESTERASE Negative (Normal) UA - NITRITE Negative (Normal) UA - PH 5.0 (Normal) UA - PROTEIN Negative mg/dL (Normal) UA - SPECIFIC GRAVITY 1.015 (Normal) URINE UROBILINGN NOREEN TIMED 2 mg/dL (Normal) 36-Iie-17180:00 L/S SPINE,MIN 4 VIEWS Radiology Report See [...] 2:06 (Abnormal) Range: 0-34 Comments: Performed at: [facility] [id number] Director: Bella Taylor MD, Phone: [phone] T3 TOTAL 0.8 ng/mL (Normal) Comments: ORDERED [...] TPO T3F T4F 2:06 (Abnormal) Range: 0.358-3.74 90-Qee-036073:13 BMP GAP 12 (Normal) Range: 5-15 CO2 [...] 7-18 GLU 95 mg/dL (Normal) Range: 70-110 58-Otb-731050:13 CBCD ABSOLUTE NEUT 5.1 3/uL (Normal) Range: [...] 4.2-5.4 WBC 7.1 K/mm3 (Normal) Range: 4.4-11.0 93-Bop-750603:34 Vaginitis/Vaginosis, DNA Probe Comments: PERFORMED BY: [facility] [facility] [id number] Information: SRC:CE Gardnerella vaginalis Negative (Normal) Trichomonas [...] Visit for suture removal Concussion : Reviewed Global Compensation Analyst Letter Indication: Concussion Fall, accidental : Reviewed Global Compensation Analyst Letter Indication: Fall, accidental Fall, accidental : [...] : Follow up in on Tues with [facility] for ear irrigation Indication: Cerumen impaction [...] tract infection, unspecified type Planned Observations Ferritin (47654)Indication: Anemia On: :14 Request CBC with auto diff (92759)Indication: Afib On: :14 Request METABOLIC PANEL, COMPREHENSIVE (06043)Indication: Afib On: :14 Request TSH (15504)Indication: Hypothyroidism On: :14 Request TSH (33373)Indication: Memory impairment On: 07-Joh-920658:11 Request AMMONIA (39399)Indication: Memory impairment On: 73-Ayf-376838:11 Request Methymalonic Acid, Serum (36331)Indication: Memory impairment On: 26-Xhv-406773:11 Request VITAMIN B-12 (CYANOCOBALAMIN) (40582)Indication: Memory impairment On: 93-Uye-444475:11 Request FOLIC ACID SERUM (32478)Indication: Memory impairment On: 54-Dkb-014827:11 Request METABOLIC PANEL, COMPREHENSIVE (36447)Indication: Coronary artery disease On: 30-Tak-557218:02 Request Comments: fax copy to SHAWN Bonilla, BY [facility] (19286)Indication: Coronary artery disease On: :02 Request CALCIFIDIOL (25286) VIT D 25Indication: Vitamin D deficiency On: 83-Lvw-044523:02 Request Metabolic Panel, Comprehensive (69700)Indication: Hypokalemia On: 12-Nov-2017 Request Comments: fax a copy to Dr. Tucker [phone] Huang [phone] MAGNESIUM (95047)Indication: Hypokalemia On: 0-Qih-532542:03 Request Metabolic Panel, Comprehensive (87333)Indication: Hypokalemia On: 4-Rzb-947824:02 Request Comments: fax a copy to Dr. Caitlin Kc and Dr. Huang [phone] Metabolic Panel, Comprehensive (90247)Indication: Hypokalemia On: 05-Nov-2017 Request Comments: fax a copy to Dr. Caitlin Kc and Dr. Huang [phone] Metabolic Panel, Comprehensive (35042)Indication: Hypokalemia On: 29-Oct-2017 Request Comments: fax a copy to Dr. Caitlin Kc and Dr. Huang [phone] Metabolic Panel, Comprehensive (96092)Indication: Hypokalemia On: 22-Oct-2017 Request Comments: fax a copy to Dr. aCitlin Kc and Dr. Huang [phone] Metabolic Panel, Comprehensive (87921)Indication: Hypokalemia On: 15-Oct-2017 Request Comments: fax a copy to Dr. Caitlin Kc and Dr. Huang [phone] Metabolic Panel, Comprehensive (96879)Indication: Hypokalemia On: 08-Oct-2017 Request Comments: fax a copy to Dr. Caitlin Kc and Dr. Huang [phone] Metabolic Panel, Comprehensive (21555)Indication: Hypokalemia On: 01-Oct-2017 Request Comments: fax a copy to Dr. Caitlin Kc and Dr. Huang [phone] Metabolic Panel, Comprehensive (99200)Indication: Hypokalemia On: 24-Sep-2017 Request Comments: fax a copy to Dr. Caitlin Kc and Dr. Huang [phone] Renal function Panel (16649)Indication: Renal insufficiency (Renamed from Renal function impairment) On: 06-Nyq-935300:23 Request URIC ACID BLOOD (47673)Indication: Abnormal laboratory test On: 64-Vvv-992880:53 Request Metabolic Panel, Comprehensive (27933)Indication: Hypokalemia On: 17-Sep-2017 Request Comments: fax a copy to Dr. Tucker [phone] Huang [phone] Metabolic Panel, Comprehensive (60930)Indication: Hypokalemia On: 10-Sep-2017 Request Comments: fax a copy to Dr. Tucker [phone] Huang [phone] Metabolic Panel, Basic (39345)Indication: Cardiomyopathy On: 25-Qiy-045338:02 Request Comments: now stat and prn CREATININE BLOOD (89361)Indication: Left leg swelling On: 67-Glm-849134:05 Request Metabolic Panel, Basic (85595)Indication: Renal insufficiency (Renamed from Renal function impairment) On: 98-Fpr-389443:16 Request Comments: re check in 4 weeks T4, FREE (THYROXINE) (54359)Indication: Hypothyroidism On: 81-Cxe-817875:49 Request CALCIFIDIOL (59594) VIT D 25Indication: Vitamin D deficiency On: 37-Vot-005175:47 Request TSH (THYROID STIMULATING HORMONE) (83402)Indication: Hypothyroidism On: 48-Eqo-313914:46 Request CREATININE BLOOD (61158)Indication: Abdominal pain, acute On: 32-Yci-574744:34 Request Metabolic Panel, Basic (34457)Indication: Abdominal pain, acute On: 03-Gaf-39629:31 Request T4, FREE (THYROXINE) (82075)Indication: Hypothyroidism On: 78-Uka-28422:30 Request TSH (93443)Indication: Hypothyroidism On: 63-Efc-25713:30 Request METABOLIC PANEL, COMPREHENSIVE (27127)Indication: DVT, bilateral lower limbs On: 14-Dfr-356154:48 Request PTT (Activated Partial Thromboplastin Time) (72485)Indication: DVT, bilateral lower limbs On: :29 Request PT (Prothrobim Time) (05925)Indication: DVT, bilateral lower limbs On: 44-Xef-327186:29 Request Factor 2 (Prothrombin) Gene Mutation (30854)Indication: DVT, bilateral lower limbs On: 06-Avc-859335:29 Request Factor V Leiden (23656)Indication: DVT, bilateral lower limbs On: 26-Wml-123055:28 Request Antiphospholipid atb (64303)Indication: DVT, bilateral lower limbs On: :28 Request CBC, Platelets & Auto Diff (62364)Indication: Abdominal pain, acute On: 94-Svr-78494:38 Request Comments: coipy to Dr. jessie armendariz stat HEPATIC FUNCTION PANEL (79459)Indication: Abdominal pain, acute On: :37 Request Comments: to stat copy to Dr. natalie armendariz Metabolic Panel, Comprehensive (97193)Indication: Abdominal pain, acute On: :23 Request Comments: all STAT Sed Rate Erythrocyte (66291)Indication: Abdominal pain, acute On: :19 Request CBC, Platelets & Auto Diff (21379)Indication: Abdominal pain, acute On: :19 Request Ferritin (67611)Indication: Abnormal RBC indices On: :08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
--- OUTSIDE RECORDS SUMMARY | 2018-10-28 17:59 | XMS RPT_ITS ---
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 Int._Unit/L OINC) High Magnesium 2.6 Performed By: #### [id number] #### [facility] [employer] [address] [place] [address] PACEMAKER CHECK Observed: 05/01/2018 Status: F Source: [place] 4:34 PM [facility] [address] [place], [place] [address] Pacemaker Check Date of Service: 05/01/18 1428 MR#: [id number] Acct: [id number] Name: IRIS ARRIAGA Rep #: [id number] : 1940 From: Kim Pickard Age/Sex: 78/F Location[place] [facility] Status: Signed Billing Codes ICD Device Billing: ICD Dev Prog Eval, Single 05/01/18 1430 <Electronically signed by Kim Pickard > Date Kim Pickard 05/01/18 1634<Electronically signed by Gurdeep Huang MD> Cosigner Signature: Date (if applicable) Gurdeep Huang MD CC: BMP Collected: 04/29/2018 Status: F Source: [place] 10:46 AM [facility] REPOSITORY TYPE CODE TESTS RESULT OUT OF RANGE REFERENCE UNITS LAB 83386355(L 70-99 mg/dL OINC) Glucose Normal Lvl 80 LAB 62366362(L 7-18 mg/dL OINC) High BUN 41 LAB 4667050(LO 0.6-1.3 mg/dL INC) High Creatinine 1.6 LAB 28648273(L 5.4-30.0 ratio OINC) Normal BUN/Creat Ratio 25.6 LAB 30612428(L 8.4-10.2 mg/dL OINC) Calcium Normal Lvl 9.5 LAB 52284163(L 136-145 mEq/L OINC) Sodium Normal Lvl 138 LAB 63704041(L 3.5-5.1 mEq/L OINC) Normal Potassium Lvl 3.9 LAB 77315382(L 98-107 mEq/L OINC) Low Chloride 95 LAB 24146512(L 24.0-30.0 mEq/L OINC) High CO2 31.1 Performed By: #### [id number] #### [place] [address] EGFR Collected: 04/29/2018 Status: F Source: [place] 10:46 AM [facility] REPOSITORY Order Comment: Order added by Discern Expert. TYPE CODE TESTS RESULT OUT OF RANGE REFERENCE UNITS LAB 71749811(LO mL/min/1.73 INC) m2 Normal eGFR 31 LAB 36697296(LO mL/min/1.73 INC) m2 Normal eGFR AA 38 Performed By: #### [id number] #### [facility] [address] [place] [address] PULMONARY VISIT REPORT Observed: 03/18/2018 Status: F Source: [place] 8:47 AM [facility] [address] [place] [address] OFFICE VISIT Date of Service: 03/18/18 MR#: [id number] Acct: [id number] Name: IRIS ARRIAGA Rep #: [id number] : 1940 Provider: Glenna Anderson Age/Sex: 78/F Location: [facility] Status: Signed Assessment AND Plan Problems 1. 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) Tendinitis, [...] G47.33 03/18/18 0847 <Electronically signed by Glenna HICKSC> Date Glenna CORADO Cosigner Signature: Date (if applicable) CC: Leanne Martin MD BMP Collected: 02/20/2018 Status: F Source: [place] 10:37 AM [facility] REPOSITORY TYPE CODE TESTS RESULT OUT OF RANGE REFERENCE UNITS LAB 77897271(L 70-99 mg/dL OINC) High Glucose Lvl 139 LAB 02895714(L 8.4-10.2 mg/dL OINC) Calcium Normal Lvl 9.4 LAB 97647443(L 136-145 mEq/L OINC) Sodium Normal Lvl 136 LAB 64375176(L 3.5-5.1 mEq/L OINC) Low Potassium Lvl 3.4 LAB 31746900(L 98-107 mEq/L OINC) Low Chloride 94 LAB 30236324(L 24.0-30.0 mEq/L OINC) High CO2 30.1 LAB 91361463(L 7-18 mg/dL OINC) High BUN 45 LAB 3475622(LO 0.6-1.3 mg/dL INC) High Creatinine 1.6 LAB 15433245(L 5.4-30.0 ratio OINC) Normal BUN/Creat Ratio 28.1 Performed By: #### [id number] #### [facility] [place] [address] EGFR Collected: 02/20/2018 Status: F Source: [place] 10:37 AM [facility] REPOSITORY Order Comment: Order added by Discern Expert. TYPE CODE TESTS RESULT OUT OF RANGE REFERENCE UNITS LAB 79758964(LO mL/min/1.73 INC) m2 Normal eGFR 31 LAB 25172975(LO mL/min/1.73 INC) m2 Normal eGFR AA 38 Performed By: #### [id number] #### [facility] [address] [place] [address] MAGNESIUM Collected: 02/20/2018 Status: F Source: [place] 10:37 AM [facility] REPOSITORY TYPE CODE TESTS RESULT OUT OF RANGE REFERENCE UNITS LAB 83577846(L 1.7-2.8 mg/dL OINC) Normal Magnesium 2.8 Performed By: #### 7533444 #### [facility] [address] [place] [address] PACEMAKER CHECK Observed: 02/02/2018 Status: F Source: [place] 8:00 AM [facility] [address] [place] [address] Pacemaker Check Date of Service: 01/28/18 1424 MR#: [id number] Acct: [id number] Name: IRIS ARRIAGA Rep #: [id number] : 1940 From: Kim Pickard Age/Sex: 78/F Location: [facility] Status: Signed Comments Summary Comments: Single Chamber ICD Report: See attached scanned report programmer Report. Interrogation shows no VT/VF episodes since last check 09/25/17. Left pectoral pocket/incision w/o s/s of infection or erosion. Pt offers no cardiac complaints. Presenting rhythm shows NSR @ 98 bpm. 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 Lead impedance, sensing and pace/sense threshold remain stable. No parameter changes made. Counters cleared. Next f/u appt scheduled for in 3 mos. Device Device Date Interviewed: 01/28/18 Follow-up Location: in office Interview Reason: routine follow up Credit Manager: Medtronic Name: Protecta VR Model: [id number] Serial #: [id number] Implant Date: 04/29/13 Year(s): 4 Implant Physician: Dr. Jose Murphy Patient Characteristics Atrial Indication: Paroxysmal atrial fibrillation Ventricular Indication: Nonsustained VT Patient Substrate: Nonischemic cardiomyopathy By: Echo Implant DFT: 18J Underlying rhythm: Sinus rhythm Pacemaker Dependent: No Device Characteristics Device: Single Chamber Type: Implantable defibrillator Remote Follow-Up: No Device Physical Exam Yes Incision well healed Leads Lead #1 Credit Manager Lead 1: Medtronic Model Lead 1: 5076 Serial# Lead 1: [id number] Date Implanted Lead 1: 09/03/04 Position Lead 1: RV Lead #2 Credit Manager Lead 2: Medtronic Model Lead 2: 6943 Serial# Lead 2: [id number] Date Implanted Lead 2: 11/18/00 Position Lead [...] palpitations R00.2 6. Atherosclerotic heart disease of [place] coronary artery with angina pectoris I25.119 7. Syncope R55 02/01/18 1335 <Electronically signed by Kim Pickard > Date Kim Pickard 02/02/18 0800<Electronically signed by Gurdeep Huang MD> Cosigner Signature: Date (if applicable) Gurdeep Huang MD CC: [place] Collected: 12/29/2017 Status: F Source: [place] 9:53 AM [facility] REPOSITORY TYPE CODE TESTS RESULT OUT OF RANGE REFERENCE UNITS LAB 74050506(L 70-99 mg/dL OINC) High Glucose Lvl 126 LAB 32407571(L 8.4-10.2 mg/dL OINC) Calcium Normal Lvl 9.4 LAB 84296523(L 136-145 mEq/L OINC) Sodium Normal Lvl 137 LAB 52472658(L 3.5-5.1 mEq/L OINC) Normal Potassium Lvl 3.9 LAB 95604334(L 98-107 mEq/L OINC) Low Chloride 97 LAB 10509338(L 24.0-30.0 mEq/L OINC) CO2 Normal 28.9 LAB 35998090(L 7-18 mg/dL OINC) High BUN 25 LAB 6744754(LO 0.6-1.3 mg/dL INC) Normal Creatinine 1.3 LAB 76526952(L 5.4-30.0 ratio OINC) Normal BUN/Creat Ratio 19.2 Performed By: #### 8307307 #### [facility] [place] [address] EGFR Collected: 12/29/2017 Status: F Source: [place] 9:53 AM [facility] REPOSITORY Order Comment: Order added by Discern Expert. TYPE CODE TESTS RESULT OUT OF RANGE REFERENCE UNITS LAB 19996269(LO mL/min/1.73 INC) m2 Normal eGFR 40 LAB 66983545(LO mL/min/1.73 INC) m2 Normal eGFR AA 48 Performed By: #### [id number] #### [facility] [address] [address] CORTISOL LVL Collected: 12/12/2017 Status: F Source: [place] 8:01 AM [facility] REPOSITORY TYPE CODE TESTS RESULT OUT OF RANGE REFERENCE UNITS LAB 72144633(L 6.7-22.6 microgram/d OINC) L Normal Cortisol Lvl 15.7 Performed By: #### [id number] #### [facility] [address] [place] [address] BMP Collected: 12/12/2017 Status: C Source: [place] 8:01 AM [facility] REPOSITORY TYPE CODE TESTS RESULT OUT OF RANGE REFERENCE UNITS LAB 60588942(L 70-99 mg/dL OINC) High Glucose Lvl 106 LAB 13740984(L 7-18 mg/dL OINC) High BUN 63 LAB 8113102(LO 0.6-1.3 mg/dL INC) High Creatinine 1.6 LAB 48387416(L 5.4-30.0 ratio OINC) High BUN/Creat Ratio 39.4 LAB 29861620(L 8.4-10.2 mg/dL OINC) Normal Calcium Lvl 9.5 LAB 57753695(L 136-145 mEq/L OINC) Low Sodium Lvl 135 LAB 28300432(L 3.5-5.1 mEq/L OINC) Abnormal Potassium Lvl 2.7 Alert Result Comment: Critical Result K: Called to: VOICEMAIL LEFT at: 13:06:45 by:JOSE M Read back by:VOICEMAIL LEFT Left voicemail @ 12:30 and called 4x. No answer. Called before office hours closed. Critical Result K: Called to: [employer] LEFT at: 13:06:45 by:JOSE M Read back by:VOICEMAIL LEFT CALLED/RB TO VIRAJ BALBUENA @ DR GLEZ'S OFFICE LAB 76831077(LOINC) 98-107 mEq/L Low Chloride 87 LAB 86807921(LOINC) 24.0-30.0 mEq/L High CO2 35.8 Performed By: #### [id number] #### [facility] [address] [place] [address] EGFR Collected: 12/12/2017 Status: F Source: [place] 8:01 AM [facility] REPOSITORY Order Comment: Order added by Discern Expert. TYPE CODE TESTS RESULT OUT OF RANGE REFERENCE UNITS LAB 13741026(LO mL/min/1.73 INC) m2 Normal eGFR 31 LAB 36633885(LO mL/min/1.73 INC) m2 Normal eGFR AA 38 Performed By: #### 06793308 #### [facility] [address] [place] [address] VENOUS DUPLEX LOWER Observed: 10/27/2017 Status: F Source: [place] EXTREMITY 4:14 PM [facility] Cardiovascular Services [address] [place] [address] Venous Duplex US, Unilateral 10/27/17 0952 MR#: [id number] Acct: [id number] Name: IRIS ARRIAGA Rep #: [id number] : 1940 77 From: Alejandro Armendariz MD [...] Dictated: 10/27/17 0952 Date Transcribed: 10/27/17 1614 Director Of Analytical Development: Signed COMPREHENSIVE METABOLIC Collected: 10/27/2017 Status: F Source: [place] 10:35 AM [facility] RE[facility] TYPE CODE TESTS RESULT OUT OF [...] Performed By: #### L500.4050, L501.1400, L501.2300 #### [facility] [address] [address] [place], [place], [address] URIC ACID Collected: 10/27/2017 Status: F Source: [place] 10:35 AM [facility] [place] TYPE CODE TESTS RESULT OUT OF RANGE REFERENCE UNITS LAB L501.1400 2.6-6.0 mg/dL High URIC 10.9 Result Comment: The drugs N-Acetylcysteine and Metamizole may falsely depress this assay. Performed By: #### L500.4050, L501.1400, L501.2300 #### [facility] [address] [place], [place], [address] PHOSPHORUS Collected: 10/27/2017 Status: F Source: [place] 10:35 AM [facility] [place] TYPE CODE TESTS RESULT OUT OF RANGE REFERENCE UNITS LAB L501.2300 2.5-4.9 mg/dL Normal PHOS 4.0 Performed By: #### L500.4050, L501.1400, L501.2300 #### [facility] [address] [place], [address] PULMONARY VISIT REPORT Observed: 10/15/2017 Status: F Source: [place] 6:36 PM [facility] [place] [facility] [address] [place] [address] OFFICE VISIT Date of Service: 10/15/17 MR#: [id number] Acct: [id number] Name: IRIS ARRIAGA Rep #: [id number] : 1940 Provider: Glenna Anderson Age/Sex: 77/F Location: [facility].W Status: Signed Assessment AND Plan 1. URMILA [...] Plan Detail Follow Up 3 Months (DMB) [facility] FU: Chief Complaint: Shortness of breath on exertion [facility] Comments Details: This is a 77 year [...] body aches. She has not utilized any dhdw-gjt-crxbozw medications for her shortness of breath. 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 OV1340 Electronically Signed: Ed Fink MD at 11:10 EST Tel [phone], Service support , CC: Leanne Martin MD Director Of Analytical Development: Signed OFFICE VISIT REPORT Observed: 10/06/2017 Status: F Source: [place] 12:16 PM [facility] [address] [place] [address] OFFICE VISIT Date of Service: 09/25/17 MR#: [id number] Acct: [id number] Patient: IRIS ARRIAGA Rep #: [id number] : 1940 Provider: Kim Pickard Age/Sex: 77/F Location: [facility] Status: Signed Comments Summary Comments: Single Chamber ICD Evaluation: Interrogation shows no VT/VF episodes since 06/17/17. Left pectoral pocket/incision w/o s/s of infection or erosion. Pt offers no cardiac complaints. Presenting rhythm shows NSR @ 92 bpm. 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 Lead impedance, sensing and pace/sense threshold remain stable. No parameter changes made. Counters cleared. Next f/u appt scheduled for in 3 mos. Device Device Date Interviewed: 09/25/17 Follow-up Location: in office Interview Reason: routine follow up Credit Manager: Medtronic Name: Protecta VR Model: X166SVP Serial #: [id number] Implant Date: 04/29/13 Year(s): 4 Implant Physician: [...] Yes Incision well healed Leads Lead #1 Credit Manager Lead 1: Medtronic Model Lead 1: 5076 Serial# Lead 1: [id number] Date Implanted Lead 1: 09/03/04 Position Lead 1: RV Additional Details: pace/sense lead Lead #2 Credit Manager Lead 2: Medtronic Model Lead 2: 6943 Serial# Lead 2: [id number] Date Implanted Lead 2: 11/18/00 Position Lead [...] CARDIOLOGY VISIT Observed: 09/11/2017 Status: F Source: [place] REPORT 5:16 PM [facility] [place] [address] [facility] [place] [address] OFFICE VISIT Date of Service: 09/11/17 MR#: [id number] Acct: [id number] Name: IRIS ARRIAGA Rep #: [id number] : 1940 Provider: Gurdeep Huang MD Age/Sex: 77/F Location[place] [facility] Status: Signed HPI 6 M FU: Details: [...] that she was evaluated for such at [facility]. 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 She is due to see her room manager at [facility] in October of this year. [...] artery disease) I25.10 Coronary Disease-Associated Artery/Lesion type: [place] artery Long-term use of high-risk medication Z79.899 [...] artery disease) I25.10 Coronary Disease-Associated Artery/Lesion type: [place] artery Long-term use of high-risk medication Z79.899 09/11/17 1716 <Electronically signed by Gurdeep Huang MD> Date Gurdeep Huang MD Cosigner Signature: Date (if applicable) CC: Leanne Martin MD ALLERGIES ALLERGIES DATE TYPE / CODE NAME / CODE REACTION SEVERITY SOURCE 08/31/2018 Drug warfarin/F00 Other Unknown [facility] Allergy/4160 [id number]([facility] 16469(SNOMED RM) Repository CT) 08/31/2018 Drug torsemide/F0 Rash [place] [facility] Allergy/4160 [id number]([facility] 40048(SNOMED ORM) Repository CT) 08/31/2018 Drug levofloxacin Hives Unknown [facility] Allergy/4160 /[id number]( Hospital 86974(SNOMED RXNORM) Repository CT) ENCOUNTERS ENCOUNTERS ADMIT/DISCHARGE ACCOUNT NUMBER ADMITTING ENCOUNTER LOCATION SOURCE CLASS 09/02/2018 [id number] Ambulatory BMSBuilding: [place] BMS.[facility] Repository 09/01/2018 [id number] Ambulatory BMSBuilding: [place] BMS.[facility] Repository 09/01/2018 [id number] [facility] ding:AF2Ejbv Repository : ST897Goo: 1 08/31/2018 [id number] Ambulatory BMSBuilding: [place] BMS.CF.[facility] Hospital Repository 08/31/2018 [id number] Ambulatory [facility] ding: Repository 08/28/2018 [address] Ambulatory Building:[facility] Practices Repository 08/24/2018 [id number] Ambulatory BMSBuilding: [place] BMS.[facility] Repository 08/18/2018 [id number] Ambulatory [facility] ding:LAB Repository 08/18/2018 [id number] Ambulatory BMSBuilding: [place] BMS.CF.[facility] Hospital Repository 08/13/2018 [id number] Ambulatory BMSBuilding: [place] BMS.CF.[facility] Hospital Repository 08/10/2018/08/10/20 [id number] Ambulatory [place] [address] ding:WC Repository 07/27/2018 [id number] Ambulatory BMSBuilding: [place] BMS.CF.[facility] Hospital Repository 07/27/2018 [id number] Ambulatory [facility] ding:LAB Repository 07/15/2018/07/15/20 [id number] Ambulatory BMSBuilding: [place] [address] Repository 07/14/2018/07/14/20 [id number] Ambulatory [place] ding:ENRoom: Repository AC15 07/08/2018 [id number] Ambulatory [facility] ding:MEDOUTP Repository 06/30/2018 [id number] Ambulatory [facility] ding:US Repository 06/29/2018 [id number] Ambulatory BMSBuilding: [place] BMS.CF.[facility] Repository 06/29/2018 [id number] Ambulatory [facility] ding:[facility]S Repository 06/27/2018 [id number] Ambulatory BMSBuilding: [place] [facility] Repository 06/25/2018/06/25/20 [id number] Ambulatory BMSBuilding: [place] [address] Repository 06/23/2018/07/17/20 [id number] Riky, Farhat Inpatient [place] 18 Chi Encounter [facility] ding:TCURoom Repository : MMU18Xij: 1 06/23/2018 [id number] Riky, Farhat Ambulatory BMSBuilding: [place] Chi BMS.CF.[facility] Repository 06/23/2018 [id number] Riky, Farhat Ambulatory BMSBuilding: [place] Chi BMS.CF.[facility] Repository 06/23/2018 [id number] Riky, Farhat Ambulatory BMSBuilding: [place] Chi BMS.CF.[facility] Repository 06/23/2018 [id number] Riky, Farhat Ambulatory BMSBuilding: [place] Chi BMS.CF.[facility] Repository 06/19/2018 [id number] Ambulatory BMSBuilding: [place] [facility] Repository 06/18/2018/06/23/20 [id number] White, Inpatient [place] 18 Afshan Encounter [facility] ding:PCURoom Repository : CEP430Dur: 1 06/18/2018 [id number] White, Ambulatory BMSBuilding: [place] Afshan BMS.CF.[facility] Repository 06/18/2018 [id number] White, Ambulatory BMSBuilding: [place] Afshan BMS.[facility] Repository 06/18/2018 [id number] White, Ambulatory BMSBuilding: [place] Afshan BMS.CF.[facility] Repository 06/18/2018 [id number] White, Ambulatory BMSBuilding: [place] BMS..[facility] Repository 06/18/2018 [id number] White, Ambulatory BMSBuilding: [place] BMS.[facility] Repository 06/18/2018 [id number] White, Ambulatory BMSBuilding: [place] BMS..[facility] Repository 06/18/2018 [id number] White, Ambulatory BMSBuilding: [place] BMS.[facility] Repository 06/18/2018 [id number] White, Ambulatory BMSBuilding: [place] BMS..[facility] Repository 06/18/2018 [id number] White, Ambulatory BMSBuilding: [place] BMS.[facility] Repository 06/18/2018 [id number] White, Ambulatory BMSBuilding: [place] BMS.[facility] Repository 06/18/2018 [id number] White, Ambulatory BMSBuilding: [place] BMS..[facility] Repository 06/18/2018 [id number] White, Ambulatory BMSBuilding: [place] BMS.[facility] Repository 06/18/2018 [id number] White, Ambulatory BMSBuilding: [place] BMS.[facility] Repository 06/18/2018 [id number] White, Ambulatory BMSBuilding: [place] BMS.[facility] Repository 06/18/2018 [id number] White, Ambulatory BMSBuilding: [place] BMS..[facility] Repository 06/18/2018 [id number] White, Ambulatory BMSBuilding: [place] BMS.[facility] Repository 06/18/2018/06/23/20 [id number] Ambulatory BMSBuilding: [place] 18 [facility] Repository 06/18/2018/06/23/20 [id number] Ambulatory BMSBuilding: [place] 18 [facility] Repository 06/18/2018 [id number] Ambulatory BMSBuilding: [place] BMS.[facility] Repository 06/17/2018/06/17/20 [id number] Ambulatory BMSBuilding: [place] [address] Repository 06/15/2018 [id number] Ambulatory BMSBuilding: [place] BMS.[facility] Repository 06/12/2018/06/12/20 [id number] Meka Glez [address] ding:[facility] Repository 06/12/2018/06/12/20 [id number] [facility], [address] ding:[facility] Repository 06/12/2018 [id number] Ambulatory [address] [place] [address] Repository 06/12/2018 [id number] Ambulatory [address] [place] [address] Repository 06/01/2018 [id number] [facility] Repository 05/01/2018/05/01/20 [id number] Ambulatory BMSBuilding: [place] [address] Repository 04/29/2018/04/29/20 [id number] [place] Mkea[address] ding:[facility] Repository 04/29/2018 [id number] Ambulatory [address] [place] [address] Repository 03/19/2018 [id number] [facility] ding: Repository 03/18/2018/03/18/20 [id number] Ambulatory BMSBuilding: [place] 18 [address].[facility] Repository 02/20/2018/02/21/[id number] Meka Glez [address] ding:[facility] Repository 02/20/[id number] Repository 01/28/2018/01/29/20 [id number] Ambulatory BMSBuilding: [place] [address] Repository 01/20/2018/01/21/20 [id number] [facility] 12/29/2017/12/30/[id number] Meka Glez [address] ding:[facility] Repository 12/12/2017/12/13/19 [id number] Meka Glez [address] ding:[facility] Repository 12/10/2017 [id number] Meka Glez Ambulatory [facility] ding:[facility] Repository 12/02/2017 [id number] Ambulatory Building:[facility] Repository 10/27/2017 [id number] Ambulatory [facility] ding:[facility] Repository 10/27/2017 [id number] Ambulatory BMSBuilding: [place] BMS.CF.A Repository 10/15/2017/10/16/19 [id number] Ambulatory BMSBuilding: [place] 18 [address].[facility] Repository 10/14/2017 [id number] Ambulatory [facility] ding:BI Repository 09/25/2017/09/25/19 [id number] Ambulatory BMSBuilding: [place] [address] Repository 09/11/2017/09/11/19 [id number] Ambulatory BMSBuilding: [place] [address] Repository 09/10/2017 [id number] Ambulatory BMSBuilding: [place] BMS.[facility] Repository PAYERS PAYERS ENCOUNTER GUARANTOR PAYER SUBSCRIBER SOURCE 09/02/2018 RAMÓN Watts Raj IRIS Rivas [id number] E Insurance:KEYUR CHAMBERSB: Community BUSTLE MEDICAREPolicy [id number], Number: Repository [place] [address]Too: [id number] Date:9797-14-60MV [address] [address]RY: 09/02/2018 Secondary NOT GIVENUNK [place] Insurance:SELF PAY [facility] Number: Effective Repository Date:2018-09-02 09/01/2018 RAMÓN Watts Raj IRIS Rivas [id number] E Insurance:HUMANStefanie HEDRICK PREMB: Community BUSTLE MEDICAREPolicy [id number], Number: Repository [place] [address]Klg: [id number] Date:5598-92-38VM BOX () [address] [place] [address]ME: 09/01/2018 Secondary NOT GIVENUNK [place] Insurance:SELF PAY [facility] Number: Effective Repository Date:2018-09-01 09/01/2018 RAMÓN Watts Primary IRIS Tucker [place] [id number] E Insurance:HUMANA GOLD ROESCHDOB: [facility] BUSTLE MEDICAREPolicy [id number] [place] [address], Number: Repository [place] [address]Ued: [id number] Date:3651-77-15MG BOX () [address] [place] [address]TE: 09/01/2018 Secondary NOT GIVENUNK [place] Insurance:SELF PAY [facility] Number: Effective Repository Date:2018-08-27 08/31/2018 RAMÓN Watts Primary IRIS Tucker [place] [id number] E Insurance:HUMANA GOLD ROESCHDOB: Community BUSTLE MEDICAREPolicy [id number] [place] [address], Number: Repository [place] [address]Amx: [id number] Date:2614-16-97JN BOX () [address] [place] [address]YR: 08/31/2018 Secondary NOT GIVENUNK [place] Insurance:SELF PAY [facility] Number: Effective Repository Date:2018-08-31 08/31/2018 RAMÓN Watts Primary IRIS Tucker [place] [id number] E Insurance:HUMANA GOLD ROESCHDOB: Community BUSTLE MEDICAREPolicy [id number], Number: Repository [place] [address]Tco: [id number] Date:4770-56-04KJ BOX () [address] [place] [address]WN: 08/31/2018 Secondary NOT GIVENUNK [place] Insurance:SELF PAY [facility] Number: Effective Repository Date:2018-08-11 08/28/2018 IRIS S Primary IRIS S OHIP Practices ROESCHDOB: Insurance:Hum//Medica ROESCHDOB: Repository re Adv PlanPoly [id number] Faraz Mccracken Number: Faraz Mccracken StreetLoudonvill [id number] StreetLoudonvmercy [facility] [place], [place] [address]Crq: Date:9911-30-30Iumj [place], [place] [address]Ukl: Name:O Box (HP)Tel: (487) [address] [place] [address] ) [phone] (QR) 97[address]WP: 08/28/2018 Secondary IRIS Tucker OHIP Practices Insurance:Humana ROESCHDOB: Repository [facility] [id number] Number: Faraz Mccracken [id number] StreetLoudonvmercy health [facility] Date:2009[birth year]06[birth year] - , [place] [address]Xkr: 2430-14-01Uqqf ~(4 Name:[address] (HP) [address] [place] [id number]: 08/24/2018 RAMÓN A Primary IRIS Tucker [place] [id number] E Insurance:HUMANA FLORIDALMA ROGLENYSCHDOB: Community BUSTLE MEDICAREPolicy [id number] [facility] Medical [facility], Number: Repository [place] [address]Kmu: [id number] Date:7885-01-39HX BOX () [address] [place] [address]EA: 08/24/2018 Secondary NOT GIVENUNK [place] Insurance:SELF PAY [facility] Number: Effective Repository Date:2018-08-24 08/18/2018 RAMÓN Watts Primary IRIS Christensenoster [id number] E Insurance:HUMANA GOLD ROESCHDOB: Community BUSTLE MEDICAREPolicy [id number] Shore Medical Center, Number: Repository [place] [address]Tie: [id number] Date:3863-59-94MD BOX () [address] [place] [address]DZ: 08/18/2018 Secondary NOT GIVENUNK [place] Insurance:SELF PAY [facility] Number: Effective Repository Date:2018-08-18 08/18/2018 RAMÓN Watts Primary IRIS Christensenoster [id number] E Insurance:HUMANA GOLD ROESCHDOB: [facility] BUSTLE MEDICAREPolicy [id number] Shore Medical Center, Number: Repository [place] [address]Rbz: [id number] Date:5375-07-64FE BOX () [address] [place] [address]WR: 08/18/2018 Secondary NOT GIVENUNK [place] Insurance:SELF PAY [facility] Number: Effective Repository Date:2018-08-18 08/13/2018 RAMÓN Watts Primary NOT GIVENUNK [place] [id number] E Insurance:SELF PAY [facility], Number: Effective Repository [place] [address]Wmo: Date:2018-08-13 (XB) 08/10/2018 RAMÓN Watts Primary IRIS Tucker [place] [id number] E Insurance:HUMANA GOLD ROESCHDOB: Community BUSTLE MEDICAREPolicy [id number] Shore Medical Center, Number: Repository [place] [address]Mkf: [id number] Date:2776-80-53QF BOX () [address] [place] [address]PG: 08/10/2018 Secondary NOT GIVENUNK [place] Insurance:SELF PAY [facility] Number: Effective Repository Date:2018-07-16 07/27/2018 RAMÓN Watts Primary IRIS Tucker [place] [id number] E Insurance:HUMANA GOLD ROESCHDOB: Community BUSTLE MEDICAREPolicy [id number] Shore Medical Center, Number: Repository [place] [address]Jrk: [id number] Date:9097-16-66YI BOX () [address] [place] [address]NJ: 07/27/2018 Secondary NOT GIVENUNK [place] Insurance:SELF PAY [facility] Number: Effective Repository Date:2018-07-27 07/27/2018 RAMÓN Watts Primary IRIS Rivas [id number] E Insurance:HUMANA FLORIDALMA ROGLENYSCHDOB: Community [facility]LE [facility]elect [facility]y [id number] Shore Medical Center, Number: [place] [address]Qfg: [id number] Date:2580-57-59LD BOX () [address] [place] [address]YY: 07/27/2018 Secondary NOT GIVENUNK [place] Insurance:SELF PAY [facility] Number: Effective Repository Date:2018-07-27 07/15/2018 RAMÓN Watts Primary IRIS Christensenoster [id number] E Insurance:HUMANA FLORIDALMA ROGLENYSCHDOB: [facility] BUSTLE MEDICAREPolicy [id number] Shore Medical Center, Number: [place] [address]Woi: [id number] Date:3261-91-80IC BOX () [id number] [place] [address]XB: 07/15/2018 Secondary IRIS Christensenoster Insurance:[facility] FARM ROESCHDOB: Community AUTOPolicy Number: [id number] Hospital [id number] Repository Date: [place], [place] [address]TY: 07/15/2018 Tertiary NOT GIVENUNK [place] Insurance:SELF PAY [facility] Number: Effective Repository Date:2018-07-15 07/14/2018 RAMÓN Watts Primary IRIS Rivas [id number] E Insurance:HUMANA FLORIDALMA ROGLENYSCHDOB: [facility] BUSTLE MEDICAREPolicy [id number] Shore Medical Center, Number: [place]ository [place] [address]Snb: [id number] Date:5216-17-55CS BOX () [id number] [place] [address]ST: 07/14/2018 Secondary NOT GIVENUNK [place] Insurance:SELF PAY [facility] Number: Effective Repository Date:2018-07-08 07/08/2018 RAMÓN Watts Primary IRIS Tucker [place] [id number] E Insurance:HUMANA GOLD ROESCHDOB: Community BUSTLE MEDICAREPolicy [id number] Shore Medical Center, Number: Repository [place] [address]Msc: [id number] Date:9443-22-66BX BOX () [address] [place] [address]ET: 07/08/2018 Secondary NOT GIVENUNK [place] Insurance:SELF PAY [facility] Number: Effective Repository Date:2018-07-07 06/30/2018 RAMÓN Watts Primary IRIS Tucker [place] [id number] E Insurance:HUMANA GOLD ROESCHDOB: [facility] [id number] Shore Medical Center, Number: Repository [place] [address]Pat: [id number] Date:8894-97-78TV BOX () [address] [place] [address]NE: 06/30/2018 Secondary IRIS S [place] Insurance:STATE FARM ROESCHDOB: Community AUTOPolicy Number: [id number] Hospital [id number] Repository Date: [place] [address]RB: 06/30/2018 Tertiary NOT GIVENUNK [place] Insurance:SELF PAY [facility] Number: Effective Repository Date:2018-06-26 06/29/2018 RAMÓN Watts Primary IRIS Christensenoster [id number] E Insurance:STATE FARM ROESCHDOB: Community BUSTLE AUTOPolicy Number: [id number] [facility] [id number] Repository [place] [address]Qmr: Date: N [facility] () [place] [address]IV: 06/29/2018 Secondary IRIS S [place] Insurance:HUMANA GOLD ROESCHDOB: Community MEDICAREPolicy [id number] Hospital Number: Repository [id number] Date:2277-79-11CN [address] [address]JH: 06/29/2018 Tertiary NOT GIVENUNK [place] Insurance:SELF PAY [facility] Number: Effective Repository Date:2018-06-29 06/29/2018 RAMÓN Watts Primary IRIS Rivas [id number] E Insurance:[facility] BUSTLE AUTOPolicy Number: [id number] Shore Medical Center, [id number] Repository [place] [address]Ijq: Date: N [facility] () [place] [address]VP: 06/29/2018 Secondary IRIS S [place] Insurance:KEYUR STRINGERCHDOB: [facility] [id number] Hospital Number: Repository [id number] Date:0739-73-50BK [address] [address]RS: 06/29/2018 Tertiary NOT GIVENUNK [place] Insurance:SELF PAY [facility] Number: Effective Repository Date:2018-06-17 06/27/2018 RAMÓN Watts Primary IRIS Rivas [id number] E Insurance:[facility]: [facility] BUSTLE AUTOPolicy Number: [id number] Shore Medical Center, [id number] Repository [place] [address]Xux: Date: N [facility] () [place] [address]FY: 06/27/2018 Secondary IRIS S [place] Insurance:HUMANStefanie STRINGERCHDOB: [facility] MEDICAREPolicy [id number] Hospital Number: Repository [id number] Date:8328-14-05CA [address] [address]CQ: 06/27/2018 Tertiary NOT GIVENUNK [place] Insurance:SELF PAY [facility] Number: Effective Repository Date:2018-06-27 06/25/2018 RAMÓN Watts Primary IRIS Christensenoster [id number] E Insurance:HUMANA FLORIDALMA ROESCHDOB: Community BUSTLE MEDICAREPolicy [id number] Shore Medical Center, Number: Repository [place] [address]Lln: [id number] Date:8895-22-04CP BOX () [address] [place] [address]AH: 06/25/2018 Secondary IRIS S Evelyn Insurance:STATE FARM ROESCHDOB: Community AUTOPolicy Number: [id number] [facility] [id number] Repository Date: N [facility], [place] [address]DV: 06/25/2018 Tertiary NOT GIVENUNK [place] Insurance:SELF PAY [facility] Number: Effective Repository Date:2018-06-25 06/23/2018 RAMÓN Watts Primary IRIS Rivas [id number] E Insurance:STATE [facility] ROESCHDOB: [facility] BUSTLE [facility] Number: [id number] Shore Medical Center, [id number] Repository [place] [address]Hbf: Date: N [facility] () [place] [address]JQ: 06/23/2018 Secondary IRIS S [place] Insurance:HUMANA FLORIDALMA ROGLENYSCHDOB: Community MEDICAREPolicy [id number] Hospital Number: Repository [id number] Date:9657-21-50LQ [address] [place] [address]SW: 06/23/2018 Tertiary NOT GIVENUNK Evelyn Insurance:SELF PAY [facility] Number: Effective Repository Date:2018-06-23 06/23/2018 RAMÓN Watts Primary IRIS Christensenoster [id number] E Insurance:HUMANA FLORIDALMA ROGLENYSCHDOB: [facility] BUSTLE MEDICAREPolicy [id number] Shore Medical Center, Number: Repository [place] [address]Nwk: [id number] Date:5722-56-77TI BOX (WI) [address] [place] [address]JY: 06/23/2018 Secondary IRIS S [place] Insurance:STATE FARM ROESCHDOB: Community AUTOPolicy Number: [id number] Hospital [id number] Repository Date: [place], [place] [address]TR: 06/23/2018 Tertiary NOT GIVENUNK Evelyn Insurance:SELF PAY [facility] Number: Effective Repository Date:2018-06-23 06/23/2018 RAMÓN Watts Primary IRIS Christensenoster [id number] E Insurance:STATE FARM ROESCHDOB: Community BUSTLE AUTOPolicy Number: [id number] [facility] [id number] [place]ository [place] [address]Pll: Date: N [facility] () [place] [address]ZC: 06/23/2018 Secondary IRIS S [place] Insurance:HUMANA GOLD ROESCHDOB: Community MEDICAREPolicy [id number] Hospital Number: Repository [id number] Date:3115-83-66FT [address] [place] [address]GS: 06/23/2018 Tertiary NOT GIVENUNK Evelyn Insurance:SELF PAY [facility] Number: Effective Repository Date:2018-06-23 06/23/2018 RAMÓN Watts Primary IRIS Christensenoster [id number] E Insurance:STATE FARM ROESCHDOB: Community BUSTLE AUTOPolicy Number: [id number] [facility] [id number] [place]ository [place] [address]Kph: Date: N [facility] () [place] [address]IB: 06/23/2018 Secondary IRIS S [place] Insurance:HUMANA GOLD ROESCHDOB: Community MEDICAREPolicy [id number] Hospital Number: Repository [id number] Date:0370-92-35EH [address] [place] [address]DF: 06/23/2018 Tertiary NOT GIVENUNK [place] Insurance:SELF PAY [facility] Number: Effective Repository Date:2018-06-23 06/23/2018 RAMÓN Watts Primary IRIS Rivas [id number] E Insurance:STATE FARM ROESCHDOB: Community BUSTLE AUTOPolicy Number: [id number] Shore Medical Center, [id number] [place]ository [place] [address]Wgn: Date: N [facility], () [place] [address]TU: 06/23/2018 Secondary IRIS S Evelyn Insurance:HUMANA GOLD ROESCHDOB: [facility] MEDICAREPolwashington county hospital [facility] [id number] Hospital Number: Repository [id number] Date:3943-30-29GK [address] [place] [address]YL: 06/23/2018 Tertiary NOT GIVENUNK [place] Insurance:SELF PAY [facility] Number: Effective Repository Date:2018-06-23 06/19/2018 RAMÓN Watts Primary IRIS Rivas [id number] E Insurance:HUMANA FLORIDALMA ROGLENYSCHDOB: Community BUSTLE MEDICAREPolicy [id number] Shore Medical Center, Number: Repository [place] [address]Oxh: [id number] Date:3393-13-19XL BOX (SE) [address] [place] [address]RI: 06/19/2018 Secondary NOT GIVENUNK Evelyn Insurance:SELF PAY [facility] Number: Effective Repository Date:2018-06-19 06/18/2018 RAMÓN Watts Primary IRIS Rivas [id number] E Insurance:STATE FARM ROESCHDOB: Community BUSTLE AUTOPolicy Number: [id number] Shore Medical Center, [id number] [place]ository [place] [address]Kab: Date: N [facility] () [place] [address]PL: 06/18/2018 Secondary IRIS Tucker [place] Insurance:HUMANA GOLD ROESCHDOB: Community MEDICAREPolicy [id number] Hospital Number: Repository [id number] Date:6786-36-51CH [address] [place] [address]QT: 06/18/2018 Tertiary NOT GIVENUNK [place] Insurance:SELF PAY [facility] Number: Effective Repository Date:2018-06-18 06/18/2018 RAMÓN Watts Primary IRIS Tucker [place] [id number] E Insurance:STATE FARM ROESCHDOB: [facility] Number: [id number] Shore Medical Center, [id number] [place]ository [place] [address]Edp: Date: N [facility] () [place] [address]OB: 06/18/2018 Secondary IRIS S [place] Insurance:HUMANA GOLD ROESCHDOB: Community MEDICAREPolicy [id number] Hospital Number: Repository [id number] Date:2883-03-73YE [address] [place] [address]JS: 06/18/2018 Tertiary NOT GIVENUNK [place] Insurance:SELF PAY [facility] Number: Effective Repository Date:2018-06-18 06/18/2018 RAMÓN Watts Primary IRIS Tucker Evelyn [id number] E Insurance:HUMANA GOLD ROESCHDOB: [facility] MEDICARESurgical [facility]ty [facility] [id number] Shore Medical Center, Number: [place]ository [place] [address]Mlk: [id number] Date:9504-79-67JO BOX (FE) [address] [place] [address]XK: 06/18/2018 Secondary IRIS S [place] Insurance:STATE FARM ROESCHDOB: Community AUTOPolicy Number: [id number] Hospital [id number] Repository Date: [place], [place] [address]ZR: 06/18/2018 Tertiary NOT GIVENUNK Evelyn Insurance:SELF PAY [facility] Number: Effective Repository Date:2018-06-18 06/18/2018 RAMÓN Watts Primary IRIS Rivas [id number] E Insurance:HUMANA GOLD ROESCHDOB: Community BUSTLE MEDICAREPolicy [id number] Shore Medical Center, Number: [place]ository [place] [address]Ngl: [id number] Date:8403-56-58JT BOX () 49[address]QCBKPLIFF[address] [place] [address]PM: 06/18/2018 Secondary IRIS S [place] Insurance:STATE FARM [facility]: Community AUTOPolicy Number: [id number] Hospital [id number] Repository Date: [place], [place] [address]XJ: 06/18/2018 Tertiary NOT GIVENUNK [place] Insurance:SELF PAY [facility] Number: Effective Repository Date:2018-06-18 06/18/2018 RAMÓN Watts Primary IRIS Rivas [id number] E Insurance:HUMANA GOLD ROESCHDOB: Community BUSTLE MEDICARESurgical [facility] [id number] Shore Medical Center, Number: Repository [place] [address]Reh: [id number] Date:2009-96-95AN BOX () [address]PCBOYKWQZ[address] [place] [address]QW: 06/18/2018 Secondary IRIS S [place] Insurance:STATE FARM ROESCHDOB: Community AUTOPolicy Number: [id number] Hospital [id number] Repository Date: [place], [place] [address]HM: 06/18/2018 Tertiary NOT GIVENUNK Evelyn Insurance:SELF PAY Community [facility] Number: Effective Repository Date:2018-06-18 06/18/2018 RAMÓN Watts Primary IRIS Tucker [place] [id number] E Insurance:HUMANA GOLD ROESCHDOB: Community BUSTLE MEDICAREPolicy [id number] Shore Medical Center, Number: [place]ository [place] [address]Gpk: [id number] Date:3907-39-37MJ BOX () [address] [place] [address]OH: 06/18/2018 Secondary IRIS S Evelyn Insurance:[facility]: Community AUTOPolicy Number: [id number] Hospital [id number] Repository Date: [place], [place] [address]HZ: 06/18/2018 Tertiary NOT GIVENUNK [place] Insurance:SELF PAY [facility] Number: Effective Repository Date:2018-06-18 06/18/2018 RAMÓN Watts Primary IRIS Tucker Evelyn [id number] E Insurance:HUMANA GOLD ROESCHDOB: Community BUSTLE MEDICAREPolicy [id number] Shore Medical Center, Number: Repository [place] [address]Zwj: [id number] Date:1152-87-31XQ BOX () [address] [place] [address]DL: 06/18/2018 Secondary IRIS S Evelyn [facility] Community AUTOPolicy Number: [id number] Hospital [id number] Repository Date: [place], [place] [address]GW: 06/18/2018 Tertiary NOT GIVENUNK Evelyn Insurance:SELF PAY [facility] Number: Effective Repository Date:2018-06-18 06/18/2018 RAMÓN Watts Primary IRIS Tucker Ev[place] [id number] E Insurance:HUMANA GOLD ROESCHDOB: [facility] BUSTLE MEDICAR[facility]urgical [facility] [id number] Shore Medical Center, Number: [place]ository [place] [address]Fbn: [id number] Date:1551-70-89MW BOX () 7[address]49PTNLZLCCA[address] [place] [address]CB: 06/18/2018 Secondary IRIS S [place] Insurance:STATE FARM ROESCHDOB: Community AUTOPolicy Number: [id number] Hospital [id number] Repository Date: [place], [place] [address]TB: 06/18/2018 Tertiary NOT GIVENUNK Evelyn Insurance:SELF PAY [facility] Number: Effective Repository Date:2018-06-18 06/18/2018 RAMÓN Watts Primary IRIS Tucker Ev[place] [id number] E Insurance:HUMANA GOLD ROESCHDOB: Community BUSTLE MEDICAREPolicy [id number] Shore Medical Center, Number: [place]ository [place] [address]Ozx: [id number] Date:3397-39-97ZR BOX () [address] [place] [address]MC: 06/18/2018 Secondary IRIS S Evelyn Insurance:STATE FARM ROESCHDOB: Community AUTOPolicy Number: [id number] Hospital [id number] Repository Date: [place], [place] [address]RX: 06/18/2018 Tertiary NOT GIVENUNK Evelyn Insurance:SELF PAY [facility] Number: Effective Repository Date:2018-06-18 06/18/2018 RAMÓN Watts Primary IRIS Tucker [place] [id number] E Insurance:HUMANA GOLD ROESCHDOB: Community BUSTLE MEDICAREPolicy [id number] Shore Medical Center, Number: [place]ository [place] [address]Rrm: [id number] Date:6049-09-99DC BOX () [address]HZE[address] [place] [address]AU: 06/18/2018 Secondary IRIS S [place] Insurance:STATE FARM ROESCHDOB: Community AUTOPolicy Number: [id number] Hospital [id number] Repository Date: [place], [place] [address]NH: 06/18/2018 Tertiary NOT GIVENUNK [place] Insurance:SELF PAY Community [facility] Number: Effective Repository Date:2018-06-18 06/18/2018 RAMÓN Watts Primary IRIS Rivas [id number] E Insurance:HUMANA GOLD ROESCHDOB: Community BUSTLE MEDICAREPolicy [id number] Shore Medical Center, Number: Repository [place] [address]Bjr: [id number] Date:1856-14-49MI BOX () [address] [place] [address]LP: 06/18/2018 Secondary IRIS S Evelyn Insurance:STATE FARM [facility]ENTERCHD[facility]: Community AUTOPolicy Number: [id number] Hospital [id number] Repository Date: [place], [place] [address]NB: 06/18/2018 Tertiary NOT GIVENUNK Evelyn Insurance:SELF PAY Community [facility] Number: Effective Repository Date:2018-06-18 06/18/2018 RAMÓN Watts Primary IRIS Rivas [id number] E Insurance:HUMANA GOLD ROESCHDOB: Community BUSTLE MEDICARESelect Specialty Hospital - Johnstowny [id number] Shore Medical Center, Number: [place]ository [place] [address]Ozr: [id number] Date:8833-15-12KT BOX () [address] [place] [address]EK: 06/18/2018 Secondary IRIS S Evelyn Insurance:STATE [facility]OB: Community AUTOPolicy Number: [id number] Hospital [id number] Repository Date: [place], [place] [address]CM: 06/18/2018 Tertiary NOT GIVENUNK [place] Insurance:SELF PAY Community [facility] Number: Effective Repository Date:2018-06-18 06/18/2018 RAMÓN Watts Primary IRIS Tucker Evelyn [id number] E Insurance:HUMANA GOLD ROESCHDOB: Community BUSTLE MEDICAREClearsky Rehabilitation Hospital Of Avondaleic [id number] Shore Medical Center, Number: [place]ository [place] [address]Yeu: [id number] Date:1234-61-89HT BOX () [address] [place] [address]WK: 06/18/2018 Secondary IRIS S [place] Insurance:STATE [facility] PROVIDENCEDOB: [facility] AUTOPolic Number: [id number] Hospital [id number] Repository Date: [place], [place] [address]PO: 06/18/2018 Tertiary NOT GIVENUNK Evelyn Insurance:SELF PAY [facility] Number: Effective Repository Date:2018-06-18 06/18/2018 RAMÓN Watts Primary IRIS Tucker [place] [id number] E Insurance:HUMANA GOLD ROESCHDOB: [facility] BUSTLE MEDICAREPolicy [id number] Shore Medical Center, Number: Repository [place] [address]Lip: [id number] Date:7755-71-89ZO BOX () [address] [place] [address]SG: 06/18/2018 Secondary IRIS S [place] Insurance:STATE [facility]: [facility] AUTOPolic Number: [id number] Hospital [id number] Repository Date: [place], [place] [address]FB: 06/18/2018 Tertiary NOT GIVENUNK Evelyn Insurance:SELF PAY [facility] Number: Effective Repository Date:2018-06-18 06/18/2018 RAMÓN Watts Primary IRIS Tucker [place] [id number] E Insurance:HUMANA GOLD ROESCHDOB: [facility] BUSTLE MEDICAREPolicy [id number] Shore Medical Center, Number: [place]ository [place] [address]Xmk: [id number] Date:3168-27-87TY BOX () [address] [place] [address]SI: 06/18/2018 Secondary IRIS S [place] Insurance:STATE FARM ROESCHDOB: Community AUTOPolicy Number: [id number] Hospital [id number] Repository Date: [place], [place] [address]DG: 06/18/2018 Tertiary NOT GIVENUNK Evelyn Insurance:SELF PAY [facility] Number: Effective Repository Date:2018-06-18 06/18/2018 RAMÓN Watts Primary IRIS Tucker Ev[place] [id number] E Insurance:HUMANA GOLD ROESCHDOB: Community BUSTLE MEDICAREPolicy [id number] Shore Medical Center, Number: [place]ository [place] [address]Uuk: [id number] Date:0220-94-99KV BOX () [address] [place] [address]SU: 06/18/2018 Secondary IRIS S Evelyn Insurance:STATE FARM ROESCHDOB: Community AUTOPolicy Number: [id number] Hospital [id number] Repository Date: [place], [place] [address]FR: 06/18/2018 Tertiary NOT GIVENUNK [place] Insurance:SELF PAY [facility] Hospital Number: Effective Repository Date:2018-06-18 06/18/2018 RAMÓN Watts Primary IRIS Christensenoster [id number] E Insurance:HUMANA GOLD ROESCHDOB: Community BUSTLE MEDICAREPolicy [id number] Shore Medical Center, Number: [place]ository [place] [address]Mvt: [id number] Date:9409-36-43NA BOX () [address] [place] [address]YU: 06/18/2018 Secondary IRIS S [place] Insurance:STATE FARM ROESCHDOB: Community AUTOPolicy Number: [id number] [id number] Repository Date: [place] [address]UJ: 06/18/2018 Tertiary NOT GIVENUNK [place] Insurance:SELF PAY [facility] Number: Effective Repository Date:2018-06-18 06/18/2018 RAMÓN Watts Primary IRIS Rivas [id number] E Insurance:HUMANA GOLD ROESCHDOB: Community BUSTLE MEDICARESurgical Specialty Hospital-[facility] 9705-23-33JGK[address] [place] [address], Number: Repository [place] [address]Jvy: [id number] Date:7354-92-03UW BOX () [address]289GJYZKNPGN[address] [place] [address]LO: 06/18/2018 Secondary IRIS S [place] Insurance:STATE FARM ROESCHDOB: [facility] AUTOSurgical [facility] Number: [id number] Hospital [id number] Repository Date: [place], [place] [address]JM: 06/18/2018 Tertiary NOT GIVENUNK [place] Insurance:SELF PAY [facility] Number: Effective Repository Date:2018-06-18 06/18/2018 RAMÓN Watts Primary IRIS Rivas [id number] E Insurance:HUMANA GOLD ROESCHDOB: Community BUSTLE MEDICARESurgical Specialty Hospital[facility] [id number] [place] [address], Number: Repository [place] [address]Cbc: [id number] Date:7629-68-63MK BOX () [address] [place] [address]EH: 06/18/2018 Secondary NOT GIVENUNK [place] Insurance:SELF PAY [facility] Number: Effective Repository Date:2018-06-18 06/18/2018 RAMÓN Watts Primary IRIS Rivas [id number] E Insurance:HUMANA GOLD ROESCHDOB: Community BUSTLE MEDICARESelect Specialty Hospital - Johnstowny [id number] [place] [address], Number: [place]ository [place] [id number]: [id number] Date:3788-78-43XA BOX (HP) 17415FWCARVYNS[address] [place] [address]QT: 06/18/2018 Secondary NOT GIVENUNK Evelyn Insurance:SELF PAY [facility] Number: Effective Repository Date:2018-06-18 06/17/2018 RAMÓN Watts Primary IRIS Rivas [id number] E Insurance:HUMANA GOLD ROESCHDOB: Community BUSTLE MEDICAREPolicy [id number] Shore Medical Center, Number: [place]ository [place] [address]Chi: [id number] Date:2704-87-15AI BOX () [address] [place] [address]TC: 06/17/2018 Secondary NOT GIVENUNK [place] Insurance:SELF PAY [facility] Number: Effective Repository Date:2018-06-17 06/15/2018 RAMÓN Watts Primary IRIS Rivas [id number] E Insurance:HUMANA GOLD ROESCHDOB: Community BUSTLE MEDICAREPolicy [id number] Shore Medical Center, Number: [place]ository [place] [address]Iwb: [id number] Date:9769-31-42CY BOX () [address] [place] [address]FC: 06/15/2018 Secondary NOT GIVENUNK [place] Insurance:SELF PAY [facility] Number: Effective Repository Date:2018-06-15 06/12/2018 IRIS Tucker Primary IRIS Becerraaritan ROESCHDOB: Insurance:HUMANAPolic ROESCHDOB: [facility] E y Number: Effective [id number] System BUSTLE Date:2018-06-12 [facility] 1959-63-25[place]apfM[place], [place] Name:CD:[id number] [address]Pkb: [address] [place] [address]Ogw: [id number]: (800) (HP) [phone] (HP) (WP) 06/12/2018 IRIS [facility]: [facility] E y Number: Effective [id number] System BUSTLE Date:2018-06-12 [facility] 9040-81-30OemdM[place], [place] Name:CD:[id number] [facility] [address]Xhu: 89404BIKRUVODM, [place] [address]Ojl: [id number]: (800) (HP) [phone] (HP) (WP) 06/12/2018 [facility]: [facility]B: [facility] ChoicePolicy Number: [id number] Repository [facility] [id number] [facility], Date:Plan Name:[place], [place] [id number]: [place] [id number]: (HP) (HP) 06/12/2018 IRIS [facility]: Insurance:[facility] HospitalB: [facility] E ChoicePolicy Number: [id number] Repository [facility] [id number] [facility], Date:Plan Name:[place], [place] [id number]: [place] [id number]: (HP) (HP) 06/01/2018 RAMÓN Watts Primary [place] [id number] [address] Insurance:SELF PAY [facility], Number: [place] [id number]: Date:2018-01-20 (HP) 05/01/2018 RAMÓN Watts Primary IRIS Rivas [id number] E Insurance:HUMANA GOLD ROESCHDOB: Community BUSTLE MEDICAREPolicy [id number] Shore Medical Center, Number: [place]ository [place] [address]Ikn: [id number] Date:7726-26-41LQ BOX (HP) 58245AEFZMWIEJ[address] [place] [address]FP: 05/01/2018 Secondary NOT GIVENUNK [place] Insurance:SELF PAY [facility] Number: Effective Repository Date:2018-05-01 04/29/2018 IRIS Tucker Primary [facility]IS Tucker [facility] Insurance:HUMANAPol ROESCHDOB: [facility] E y Number: Effective [id number] System BUSTLE Date:2018-04-29 [facility] 7469-08-00Tdyv[address] [place] [address] Name:CD:[id number] BOX [facility]Hue: [address] [place], [place] [address]Tel: [phone]: (800) (HP) [phone] (HP) () 04/29/[address] [facility]B: Insurance:[employer] ROESCHDOB: [facility] Number: [id number] Repository BUSTLE [id number] E [facility], Date:Plan Name:[place], [place] [id number]: [place] [id number]: (QH) (HP) 03/19/2018 RAMÓN Watts Primary IRIS Rivas [id number] E Insurance:HUMANA GOLD ROESCHDOB: Community BUSTLE MEDICAREPolicy [id number] Shore Medical Center, Number: [place]ository [place] [address]Fhd: [id number] Date:7998-29-72ST BOX () [address]96HRMOAUBZJ[address] [place] [address]VG: 03/19/2018 Secondary NOT GIVENUNK Ev[place] Insurance:SELF PAY [facility] Number: Effective Repository Date:2018-03-18 03/18/2018 RAMÓN Rivas [id number] E Insurance:HUMANA GOLD ROESCHDOB: Community BUSTLE MEDICAREPolicy [id number] Shore Medical Center, Number: [place] [address]Ocf: [id number] Date:7652-98-89SU BOX () [address] [place] [address]AX: 03/18/2018 Secondary NOT GIVENUNK Evelyn Insurance:SELF PAY [facility] Number: Effective Repository Date:2018-02-16 02/20/2018 IRIS [facility]: Insurance:HUMANAPolic ROESCHDOB: [facility] E y Number: Effective [id number] System BUSTLE Date:2018-02-20 [facility] 1525-25-54Bvvq[address] [id number]: Name:CD:[id number] [facility] [id number]: [address] [place] [address] () [id number]: (574) () [phone] () 02/20/[address] [facility] HospitalB: Insurance:[employer] ROESCHDOB: [facility] E [facility] Number: [id number] Repository [facility] [id number] E [facility], Date:Plan Name:[place], [place] [id number]: [place] [id number]: (VG) () 01/28/2018 RAMÓN Watts Primary IRIS Rivas [id number] E Insurance:HUMANA GOLD ROESCHDOB: [facility] BUSTLE MEDICAREPolicy [id number], Number: Repository [place] [address]Rcd: [id number] Date:[id number] BOX (HP) [address] [place] [id number]: 01/28/2018 Secondary NOT GIVENUNK Evelyn Insurance:SELF PAY [facility] Number: Effective Repository Date:2017-12-18 01/20/2018 RAMÓN Watts Primary IRIS Tucker [place] [id number] E Insurance:HUMANA GOLD ROESCHDOB: Community BUSTLE MEDICAREPolicy [id number] [facility], Number: Repository [place] [address]Otf: [id number] [phone] Date:5556-45-40KT [address] () [address] [place] [id number]: 01/20/2018 Secondary NOT GIVENUNK [place] Insurance:SELF PAY [facility] Number: Effective Repository Date:2018-01-20 12/29/2017 IRIS Tucker Primary IRIS Cuevas ROGLENYSCHDOB: Insurance:HUMANAPolic ROESCHDOB: [facility] E y Number: Effective [id number] System BUSTLE Date:2017-12-29 [facility] [id number], [place] [id number]: Name:CD:[id number] [facility] [id number]: [address] [place] [address] (HP) [phone]: [phone] (HP) [phone] () 12/12/2017 IRIS Tucker Primary IRIS Cuevas ROESCHDOB: Insurance:HUMANAPolic ROESCHDOB: [facility] E y Number: Effective [id number] System BUSTLE Date:2017-12-12 BUSTLE Repository [facility], [id number] [facility], [place] [id number]: Name:[id number] BOX [place] [phone]: [address] [place] [address] (HP) [phone]: [phone]) (HP) [phone] (WP) 12/10/2017 IRIS Tucker Primary IRIS Cuevas [facility]: [facility] E y Number: Effective [id number] System BUSTLE Date:2017-12-10 BUSTLE Repository [facility], [id number] [facility], [place] [id number]: Name:[id number] BOX [place] [id number]: [address] [place] [address] (HP) [phone]: [phone]) (HP) [phone] (WP) 12/02/2017 [facility]IS S [facility]:MEDICARE ROESCHDOB: [facility] [id number] [facility] Number: [facility], [id number] [facility], Repository [place] [address]Apq: Date:Plan Name:[place]ARE [place] [id number]: (HP) (HP) 10/27/2017 RAMÓN Watts Primary [id number] Community BUSTLE MEDICAREPolicy [id number] Shore Medical Center, Number: [place]ository [place] [address]Oyd: [id number] [phone] Date:2656-85-27HI [address] (HP) [address] [place] [id number]: 10/27/2017 Secondary NOT GIVENUNK [place] Insurance:SELF PAY [facility] Number: Effective Repository Date:2017-09-23 10/27/2017 RAMÓN Watts Primary IRIS Christensenoster [id number] E Insurance:HUMANA GOLD ROESCHDOB: [facility] BUSTLE MEDICAREPolicy [id number] Shore Medical Center, Number: Repository [place] [id number]: [id number] [phone] Date:3980-46-72LR [address] -[address] (HP) [address] [place] [id number]: 10/27/2017 Secondary NOT GIVENUNK Evelyn Insurance:SELF PAY [facility] Number: Effective Repository Date:2017-10-27 10/15/2017 RAMÓN Watts Primary IRIS Tucker [place] [id number] E Insurance:HUMANA GOLD ROESCHDOB: Community BUSTLE MEDICAREPolicy [id number] [place] [address], Number: Repository [place] [address]Plg: [id number] [phone] Date:6307-36-18FR [address] -[address] (HP) [address] [place] [address]WP: 10/15/2017 Secondary NOT GIVENUNK [place] Insurance:SELF PAY [facility] Number: Effective Repository Date:2017-09-24 10/14/2017 RAMÓN Watts Primary IRIS Tucker [place] [id number] E Insurance:HUMANA GOLD ROESCHDOB: [facility] BUSTLE MEDICAREPolicy [id number] Shore Medical Center, Number: Repository [place] [id number]: [id number] [phone] Date:7915-42-75EX [address] ) [address] [place] [phone]: 10/14/2017 Secondary NOT GIVENUNK Ev[place] Insurance:SELF PAY [facility] Number: Effective Repository Date:2017-09-23 09/25/2017 RAMÓN Watts Primary IRIS Tucker [place] [id number] E Insurance:HUMANA GOLD ROESCHDOB: Community BUSTLE MEDICAREPolicy [id number] Shore Medical Center, Number: Repository [place] [id number]: [id number] [phone] Date:9962-03-74RF [address] -[address] (HP) [address] [place] [id number]: 09/25/2017 Secondary NOT GIVENUNK [place] Insurance:SELF PAY [facility] Number: Effective Repository Date:2017-07-16 09/11/2017 RAMÓN Watts Primary IRIS Christensenoster [id number] E Insurance:KEYUR ARRIAGADOB: Community [facility] [id number] Shore Medical Center, Number: Repository [place] [address]Dvs: [id number] [phone] Date:8905-53-59YZ [address] () [id number] [place] [phone]: 09/11/2017 Secondary NOT GIVENUNK Evelyn Insurance:SELF PAY [facility] Number: Effective Repository Date:2017-07-19 09/10/2017 RAMÓN Watts Primary IRIS Tucker [place] [id number] E Insurance:KEYUR ARRIAGADOB: Community [facility]USTLE [facility]AR[facility]elect [facility] [id number] Shore Medical Center, Number: Repository [place] [id number]: [id number] [phone] Date:8748-52-45KZ [address] (HP) [address] [place] [phone]: 09/10/2017 Secondary NOT GIVENUNK Evelyn Insurance:SELF PAY [facility] Number: Effective Repository Date:2017-09-10
== END ==
PROVIDERS: Family Provider Internal Medicine; PCP Internal Medicine; Referring Provider Internal Medicine Endocrinology, Diabetes & Metabolism; Visit Provider Internal Medicine Endocrinology, Diabetes & Metabolism
DX: I10 Essential (primary) hypertension (principal); E27.49 Other adrenocortical insufficiency; S80.01XA Contusion of right knee, initial encounter; X58.XXXA Exposure to other specified factors, initial encounter
CPT/HCPCS: 36415; 80048; 87070; 87075; 87077; 87205

== ENCOUNTER 2018-08-10 09:00 | Outpatient (RCR) | payer MEDICARE, SELFPAY ==
[2018-07-15 15:58] VITALS: BMI 29.7
[2018-07-27 09:43] VITALS: BP 106/66; PULSE 108; RESP 18; TEMP 36.8; BMI 24.8
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
[2018-08-10 09:04] VITALS: BP 94/67; PULSE 122; RESP 18; TEMP 36.3; BMI 24.8
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
--- OUTSIDE RECORDS SUMMARY | 2018-10-28 21:26 | XMS RPT_ITS ---
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 Source: JEW 8:01 AM [facility] REPOSITORY TYPE CODE TESTS RESULT OUT OF RANGE REFERENCE UNITS LAB 28177096(L 70-99 mg/dL OINC) High Glucose Lvl 106 LAB 89994294(L 7-18 mg/dL OINC) High BUN 63 LAB 0840176(LO 0.6-1.3 mg/dL INC) High Creatinine 1.6 LAB 91401061(L 5.4-30.0 ratio OINC) High BUN/Creat Ratio 39.4 LAB 25256474(L 8.4-10.2 mg/dL OINC) Normal Calcium Lvl 9.5 LAB 88514923(L 136-145 mEq/L OINC) Low Sodium Lvl 135 LAB 46531571(L 3.5-5.1 mEq/L OINC) Abnormal Potassium Lvl 2.7 Alert Result Comment: Critical Result K: Called to: VOICEMAIL LEFT at: 13:06:45 by:JOSE M Read back by:VOICEMAIL LEFT Left voicemail @ 12:30 and called 4x. No answer. Called before office hours closed. Critical Result K: Called to: Creator Up[employer] LEFT at: 13:06:45 by:JOSE M Read back by:VOICEMAIL LEFT CALLED/RB TO VIRAJ BALBUENA @ DR GLEZ'S OFFICE LAB 10362927(LOINC) 98-107 mEq/L Low Chloride 87 LAB 60388299(LOINC) 24.0-30.0 mEq/L High CO2 35.8 Performed By: #### [id number] #### [facility] [address] [place] [address] EGFR Collected: 12/12/2017 Status: F Source: JEW 8:01 AM [facility] REPOSITORY Order Comment: Order added by Discern Expert. TYPE CODE TESTS RESULT OUT OF RANGE REFERENCE UNITS LAB 36432188(LO mL/min/1.73 INC) m2 Normal eGFR 31 LAB 45538246(LO mL/min/1.73 INC) m2 Normal eGFR AA 38 Performed By: #### [id number] #### [facility] [address] [place] [address] VENOUS DUPLEX LOWER Observed: 10/27/2017 Status: F Source: [place] EXTREMITY 4:14 PM [facility] REPOSITORY [facility] Cardiovascular Services [address] [place] [address] Venous Duplex US, Unilateral 10/27/17 0952 MR#: [id number] Acct: [id number] Name: IRIS ARRIAGA Rep #: [id number] : 1940 77 From: Alejandro Armendariz MD [...] Dictated: 10/27/17 0952 Date Transcribed: 10/27/17 1614 Supervisor Fine Grading: Signed COMPREHENSIVE METABOLIC Collected: 10/27/2017 Status: F Source: EVELYN POTTER 10:35 AM [facility] REPOSITORY TYPE CODE TESTS RESULT OUT OF [...] Performed By: #### L500.4050, L501.1400, L501.2300 #### [facility] [address] [place], [place], [address] URIC ACID Collected: 10/27/2017 Status: F Source: [place] 10:35 AM [facility] REPOSITORY TYPE CODE TESTS RESULT OUT OF RANGE REFERENCE UNITS LAB L501.1400 2.6-6.0 mg/dL High URIC 10.9 Result Comment: The drugs N-Acetylcysteine and Metamizole may falsely depress this assay. Performed By: #### L500.4050, L501.1400, L501.2300 #### [facility] [address] [place], [place], [address] PHOSPHORUS Collected: 10/27/2017 Status: F Source: [place] 10:35 AM [facility] REPOSITORY TYPE CODE TESTS RESULT OUT OF RANGE REFERENCE UNITS LAB L501.2300 2.5-4.9 mg/dL Normal PHOS 4.0 Performed By: #### L500.4050, L501.1400, L501.2300 #### [facility] [address] [place], [address] PULMONARY VISIT REPORT Observed: 10/15/2017 Status: F Source: [place] 6:36 PM [facility] REPOSIT[facility] [address] [place] [address] OFFICE VISIT Date of Service: 10/15/17 MR#: [id number] Acct: [id number] Name: IRIS ARRIAGA Rep #: [id number] : 1940 Provider: Glenna Anderson Age/Sex: 77/F [place] [facility] Status: Signed Assessment AND Plan 1. [...] Plan Detail Follow Up 3 Months (DMB) [facility] FU: Chief Complaint: Shortness of breath on exertion [facility] Comments Details: This is a 77 [...] body aches. She has not utilized any xcep-kgk-ehrxpvt medications for her shortness of breath. 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 [id number] Electronically Signed: Ed Fink MD at 11:10 EST Tel [phone], Service support , CC: Leanne Martin MD Supervisor Fine Grading: Signed OFFICE VISIT REPORT Observed: 10/06/2017 Status: F Source: EVELYN 12:16 PM [facility] [address] [place] [address] OFFICE VISIT Date of Service: 09/25/17 MR#: [id number] Acct: [id number] Patient: IRIS ARRIAGA Rep #: [id number] : 1940 Provider: Kim Pickard Age/Sex: 77/F [place] [facility] [place] Status: Signed Comments Summary Comments: Single Chamber ICD Evaluation: Interrogation shows no VT/VF episodes since 06/17/17. Left pectoral pocket/incision w/o s/s of infection or erosion. Pt offers no cardiac complaints. Presenting rhythm shows NSR @ 92 bpm. 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 Lead impedance, sensing and pace/sense threshold remain stable. No parameter changes made. Counters cleared. Next f/u appt scheduled for in 3 mos. Device Device Date Interviewed: 09/25/17 Follow-up Location: in office Interview Reason: routine follow up Patient Representative: Medtronic Name: Protecta VR Model: [id number] Serial #: [id number] Implant Date: 04/29/13 Year(s): 4 Implant Physician: [...] Yes Incision well healed Leads Lead #1 Patient Representative Lead 1: Medtronic Model Lead 1: 5076 Serial# Lead 1: [id number] Date Implanted Lead 1: 09/03/04 Position Lead 1: RV Additional Details: pace/sense lead Lead #2 Patient Representative Lead 2: Medtronic Model Lead 2: 6943 Serial# Lead 2: [id number] Date Implanted Lead 2: 11/18/00 Position Lead [...] CARDIOLOGY VISIT Observed: 09/11/2017 Status: F Source: [place] REPORT 5:16 PM [facility] [address] [place] [address] OFFICE VISIT Date of Service: 09/11/17 MR#: [id number] Acct: [id number] Name: IRIS ARRIAGA Rep #: [id number] : 1940 Provider: Gurdeep Huang MD Age/Sex: 77/F [place] [facility] Status: Signed HPI 6 M FU: Details: [...] was evaluated for such at [facility]. 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 She is due to see her checker in at [facility] in October of this year. [...] artery disease) I25.10 Coronary Disease-Associated Artery/Lesion type: [place] artery Long-term use of high-risk medication Z79.899 [...] artery disease) I25.10 Coronary Disease-Associated Artery/Lesion type: [place] artery Long-term use of high-risk medication Z79.899 09/11/17 1716 <Electronically signed by Gurdeep Huang MD> Date Gurdeep Huang MD Cosigner Signature: Date (if applicable) CC: Leanne Martin MD ALLERGIES ALLERGIES DATE TYPE / CODE NAME / CODE REACTION SEVERITY SOURCE 08/31/2018 Drug warfarin/F00 Other Unknown [facility] Allergy/4160 6389450([facility] [address](SNOMED RM) Repository CT) 08/31/2018 Drug torsemide/F0 Rash [place] [facility] Allergy/4160 99552409([facility] [address](SNOMED ORM) Repository CT) 08/31/2018 Drug levofloxacin Hives Unknown [facility] Allergy/4160 /[id number]( Hospital [address]404(SNOMED RXNORM) Repository CT) ENCOUNTERS ENCOUNTERS ADMIT/DISCHARGE ACCOUNT NUMBER ADMITTING ENCOUNTER LOCATION SOURCE CLASS 09/02/2018 [id number] Ambulatory BMSBuilding: [place] BMS.Counts include 234 beds at the [facility] Repository 09/01/2018 [id number] Ambulatory [facility]: [place] [facility].Counts include 234 beds at the [facility] Repository 09/01/2018 [id number] [id number] Repository : XR302Oyz: 1 08/31/2018 [id number] Ambulatory BMSBuilding: [place] BMS.CF.[facility] Repository 08/31/2018 [id number] Ambulatory [facility] ding: Repository 08/28/2018 [id number] Ambulatory Building:[facility] Practices Repository 08/24/2018 [id number] Ambulatory BMSBuilding: [place] BMS.CF.[facility] Repository 08/18/2018 [id number] Ambulatory [facility] ding:LAB Repository 08/18/2018 [id number] Ambulatory BMSBuilding: [place] BMS.CF.[facility] Repository 08/13/2018 [id number] Ambulatory BMSBuilding: [place] BMS.CF.[facility] Repository 08/10/2018/08/10/20 [id number] Ambulatory [place] ding:WC Repository 07/27/2018 [id number] Ambulatory BMSBuilding: [place] BMS.CF.[facility] Repository 07/27/2018 [id number] Ambulatory [facility] ding:LAB Repository 07/15/2018/07/15/20 [id number] Ambulatory BMSBuilding: [place] [address] BMS.[facility] Repository 07/14/2018/07/14/20 [id number] Ambulatory [place] ding:ENRoom: Repository AC15 07/08/2018 [id number] Ambulatory [facility] ding:MEDOUTP Repository 06/30/2018 [id number] Ambulatory [facility] ding:US Repository 06/29/2018 [id number] Ambulatory BMSBuilding: [place] BMS.CF.[facility] Repository 06/29/2018 [id number] Ambulatory [facility] ding:[facility] Repository 06/27/2018 [id number] Ambulatory BMSBuilding: [place] Repository 06/25/2018/06/25/20 [id number] Ambulatory BMSBuilding: [place] 18 BMS.[facility] Repository 06/23/2018/07/17/20 [id number] Riky, Farhat Inpatient [place] [facility] Chi Encounter [facility] ding:TCURoom Repository : QGB34Kcn: 1 06/23/2018 [id number] Riky, Farhat Ambulatory BMSBuilding: [place] Chi BMS.CF.[facility] Repository 06/23/2018 [id number] Riky, Farhat Ambulatory BMSBuilding: [place] Chi BMS.CF.[facility] Repository 06/23/2018 [id number] Riky, Farhat Ambulatory BMSBuilding: [place] Chi BMS.CF.[facility] Repository 06/23/2018 [id number] Riky, Farhat Ambulatory BMSBuilding: [place] Chi BMS.CF.[facility] Repository 06/19/2018 [id number] Ambulatory BMSBuilding: [place] [facility] Repository 06/18/2018/06/23/20 [id number] White, Inpatient [place] Evelyn 18 Afshan Encounter [facility] ding:PCURoom Repository : LHI636Gkc: 1 06/18/2018 [id number] White, Ambulatory BMSBuilding: [place] Afshan BMS.CF.[facility] Repository 06/18/2018 [id number] White, Ambulatory BMSBuilding: [place] Afshan BMS.Counts include 234 beds at the [facility] Repository 06/18/2018 [id number] White, Ambulatory BMSBuilding: [place] Afshan BMS.CF.[facility] Repository 06/18/2018 [id number] White, Ambulatory BMSBuilding: [place] BMS..[facility] Repository 06/18/2018 [id number] White, Ambulatory BMSBuilding: [place] BMS.[facility] Repository 06/18/2018 [id number] White, Ambulatory BMSBuilding: [place] BMS..[facility] Repository 06/18/2018 [id number] White, Ambulatory BMSBuilding: [place] BMS.[facility] Repository 06/18/2018 [id number] White, Ambulatory BMSBuilding: [place] BMS..[facility] Repository 06/18/2018 [id number] White, Ambulatory BMSBuilding: [place] BMS.Counts include 234 beds at the [facility] Repository 06/18/2018 [id number] White, Ambulatory BMSBuilding: [place] BMS.Counts include 234 beds at the [facility] Repository 06/18/2018 [id number] White, Ambulatory BMSBuilding: [place] BMS..[facility] Repository 06/18/2018 [id number] White, Ambulatory BMSBuilding: [place] BMS.[facility] Repository 06/18/2018 [id number] White, Ambulatory BMSBuilding: [place] BMS.[facility] Repository 06/18/2018 [id number] White, Ambulatory BMSBuilding: [place] BMS.Counts include 234 beds at the [facility] Repository 06/18/2018 [id number] White, Ambulatory BMSBuilding: [place] BMS..[facility] Repository 06/18/2018 [id number] White, Ambulatory BMSBuilding: [place] BMS.Counts include 234 beds at the [facility] Repository 06/18/2018/06/23/20 [id number] Ambulatory BMSBuilding: [place] 18 [facility] Repository 06/18/2018/06/23/20 [id number] Ambulatory BMSBuilding: [place] 18 [facility] Repository 06/18/2018 [id number] Ambulatory BMSBuilding: [place] BMS.Counts include 234 beds at the [facility] Repository 06/17/2018/06/17/20 [id number] Ambulatory BMSBuilding: [place] 18 BMS.[facility] Repository 06/15/2018 [id number] Ambulatory BMSBuilding: [place] BMS.[facility] Repository 06/12/2018/06/12/20 [id number] Meka Glez [address] ding:[facility] Repository 06/12/2018/06/12/20 [id number] [facility] [address] ding:[facility] Repository 06/12/2018 [id number] Ambulatory [address] [place] [address] Repository 06/12/2018 [id number] Ambulatory [address] [place] [address] Repository 06/01/2018 [id number] [facility] Repository 05/01/2018/05/01/20 [id number] Ambulatory BMSBuilding: [place] 18 BMS.[facility] Repository 04/29/2018/04/29/20 [id number] [place] Meka[address] ding:[facility] Repository 04/29/2018 [id number] Ambulatory [address] [place] [address] Repository 03/19/2018 [id number] [facility] Rep[facility] 03/18/2018/03/18/20 [id number] Ambulatory BMSBuilding: [place] 18 BMS.[facility] Repository 02/20/2018/02/21/[id number] Meka Glez [address] ding:[facility] Repository 02/20/[id number] Repository 01/28/2018/01/29/20 [id number] Ambulatory BMSBuilding: [place] 18 BMS.[facility] Repository 01/20/2018/01/21/20 [id number] Ambulatory [facility]Building[facility] [place] [facility] 12/29/2017/12/30/[id number] Meka Glez [address] ding:[facility] Repository 12/12/2017/12/13/19 [id number] Meka Glez [address] ding:[facility] Repository 12/10/2017 [id number] Meka Glez Ambulatory [facility] ding:[facility] Repository 12/02/2017 [id number] Ambulatory Building:[facility] Repository 10/27/2017 [id number] Ambulatory [facility] ding:[facility] Repository 10/27/2017 [id number] Ambulatory BMSBuilding: [place] BMS.CF.[facility] Repository 10/15/2017/10/16/19 [id number] Ambulatory BMSBuilding: [place] 18 BMS.[facility] Repository 10/14/2017 [id number] Ambulatory [facility] ding:[facility] Repository 09/25/2017/09/25/19 [id number] Ambulatory BMSBuilding: [place] 18 BMS.[facility] Repository 09/11/2017/09/11/19 [id number] Ambulatory BMSBuilding: [place] 18 BMS.[facility] Repository 09/10/2017 [id number] Ambulatory BMSBuilding: [place] BMS.[facility] Repository PAYERS PAYERS ENCOUNTER GUARANTOR PAYER SUBSCRIBER SOURCE 09/02/2018 RAMÓN Watts Raj IRIS Rivas [id number] E Insurance:KEYUR CHAMBERSB: Community BUSTLE MEDICAREPolicy [id number], Number: Repository [place] [address]Syd: [id number] Date:0638-01-59XV [address] [address]HW: 09/02/2018 Secondary NOT GIVENUNK [place] Insurance:SELF PAY [facility] Number: Effective Repository Date:2018-09-02 09/01/2018 RAMÓN Watts Raj IRIS Rivas [id number] E Insurance:HUMANStefanie HEDRICK PREMB: Community BUSTLE MEDICAREPolicy [id number], Number: Repository [place] [address]Eii: [id number] Date:4926-40-69GM BOX () [address] [place] [address]KI: 09/01/2018 Secondary NOT GIVENUNK [place] Insurance:SELF PAY [facility] Number: Effective Repository Date:2018-09-01 09/01/2018 RAMÓN Watts Primary IRIS Castro [place] [id number] E Insurance:HUMANA GOLD ROESCHDOB: [facility] BUSTLE MEDICAREPolicy [id number] [place] [address], Number: Repository [place] [address]Ryx: [id number] Date:5105-20-43BM BOX () [address] [place] [address]DL: 09/01/2018 Secondary NOT GIVENUNK Evelyn Insurance:SELF PAY [facility] Number: Effective Repository Date:2018-08-27 08/31/2018 RAMÓN Watts Primary IRIS Castro Evelyn [id number] E Insurance:HUMANA GOLD ROESCHDOB: Community BUSTLE MEDICAREPolicy [id number] [place] [address], Number: Repository [place] [address]Gya: [id number] Date:9121-24-82GE BOX () [address] [place] [address]GR: 08/31/2018 Secondary NOT GIVENUNK Evelyn Insurance:SELF PAY [facility] Number: Effective Repository Date:2018-08-31 08/31/2018 RAMÓN Watts Primary IRIS Castro [place] [id number] E Insurance:HUMANA GOLD ROESCHDOB: Community BUSTLE MEDICAREPolicy [id number], Number: Repository [place] [address]Sir: [id number] Date:5358-73-80IV BOX () [address] [place] [address]PI: 08/31/2018 Secondary NOT GIVENUNK Evelyn Insurance:SELF PAY [facility] Number: Effective Repository Date:2018-08-11 08/28/2018 IRIS S Primary IRIS S OHIP Practices ROESCHDOB: Insurance:Hum//Medica ROESCHDOB: Repository re Adv PlanPoly [id number] Faraz Mccracken Number: Faraz Mccracken StreetLoudonvill [id number] StreetLoudonvohio [facility] [place], [place] [address]Tqh: Date:5342-02-52Uswy m[place], [place] [address]Cjc: Name:O Box (HP)Tel: (234) [address] [place] [address] ) [phone] (UV) [address]WP: 08/28/2018 Secondary IRIS Castro OHIP Practices Insurance:Humana ROESCHDOB: Repository [facility] [id number] Number: Faraz Mccracken [id number] StreetLoudonvohio state harding hospital Date:2009[birth year] - , [place] [address]Evh: [id number] ~(4 Name:[address] (HP) [address] [place] [id number]: 08/24/2018 RAMÓN A Primary IRIS Castro Evelyn [id number] E Insurance:HUMANA FLORIDALMA ROGLENYSCHDOB: Community BUSTLE MEDICAREPolicy [id number], Number: [place]ository [place] [address]Xtp: [id number] Date:5009-02-14BQ BOX () [address] [place] [address]BW: 08/24/2018 Secondary NOT GIVENUNK [place] Insurance:SELF PAY [facility] Number: Effective Repository Date:2018-08-24 08/18/2018 RAMÓN Watts Primary IRIS Christensenoster [id number] E Insurance:HUMANA GOLD ROESCHDOB: Community BUSTLE MEDICAREPolicy [id number] [facility], Number: Repository [place] [address]Voj: [id number] Date:0907-14-10JO BOX () [address] [place] [address]IU: 08/18/2018 Secondary NOT GIVENUNK Evelyn Insurance:SELF PAY [facility] Number: Effective Repository Date:2018-08-18 08/18/2018 RAMÓN Watts Primary IRIS Christensenoster [id number] E Insurance:HUMANA GOLD ROESCHDOB: [facility] BUSTLE MEDICAREPolicy [id number] [facility], Number: Repository [place] [address]Wbh: [id number] Date:2302-35-21JK BOX () [address] [place] [address]ET: 08/18/2018 Secondary NOT GIVENUNK [place] Insurance:SELF PAY [facility] Number: Effective Repository Date:2018-08-18 08/13/2018 RAMÓN Watts Primary NOT GIVENUNK Evelyn [id number] E Insurance:SELF PAY [facility], Number: Effective Repository [place] [address]Bti: Date:2018-08-13 (JD) 08/10/2018 RAMÓN Watts Primary IRIS Castro [place] [id number] E Insurance:HUMANA GOLD ROESCHDOB: Community BUSTLE MEDICAREPolicy [id number] [facility], Number: Repository [place] [address]Yas: [id number] Date:0943-73-49IY BOX () [address] [place] [address]VE: 08/10/2018 Secondary NOT GIVENUNK Evelyn Insurance:SELF PAY [facility] Number: Effective Repository Date:2018-07-16 07/27/2018 RAMÓN Watts Primary IRIS Castro [place] [id number] E Insurance:HUMANA GOLD ROESCHDOB: Community BUSTLE MEDICAREPolicy [id number] [facility], Number: Repository [place] [address]Txs: [id number] Date:9478-70-59AG BOX () [address] [place] [address]WA: 07/27/2018 Secondary NOT GIVENUNK [place] Insurance:SELF PAY [facility] Effective Repository Date:2018-07-27 07/27/2018 RAMÓN Watts Primary IRIS Rivas [id number] E Insurance:HUMANA FLORIDALMA ROGLENYSCHDOB: Community BUSTLE MEDICAREPenn [facility]lands Healthcarey [id number] [facility], Number: Repository [place] [address]Ugl: [id number] Date:6276-80-99FU BOX () [address] [place] [address]AP: 07/27/2018 Secondary NOT GIVENUNK Evelyn Insurance:SELF PAY [facility] Number: Effective Repository Date:2018-07-27 07/15/2018 RAMÓN Watts Primary IRIS Christensenoster [id number] E Insurance:HUMANA FLORIDALMA ROGLENYSCHDOB: [facility] BUSTLE MEDICAREPolicy [id number] [facility], Number: Repository [place] [address]Rcg: [id number] Date:7420-83-41XP B[address] () [id number] [place] [address]CE: 07/15/2018 Secondary IRIS Christensenoster Insurance:[facility] ROESCHDOB: Community AUTOPolicy Number: [id number] Hospital [id number] Repository Date: [place], [place] [address]AM: 07/15/2018 Tertiary NOT GIVENUNK Evelyn Insurance:SELF PAY [facility] Number: Effective Repository Date:2018-07-15 07/14/2018 RAMÓN Watts Primary IRIS Rivas [id number] E Insurance:HUMANA FLORIDLAMA ROGLENYSCHDOB: [facility] BUSTLE MEDICAREPolicy [id number] [facility]amon[facility], Number: Repository [place] [address]Qeo: [id number] Date:6937-09-59MT BOX () [id number] [place] [address]BA: 07/14/2018 Secondary NOT GIVENUNK Evelyn Insurance:SELF PAY [facility] Number: Effective Repository Date:2018-07-08 07/08/2018 RAMÓN Watts Primary IRIS Castro [place] [id number] E Insurance:HUMANA GOLD ROESCHDOB: Community BUSTLE MEDICAREPolicy [id number] [facility], Number: Repository [place] [address]Eox: [id number] Date:0175-68-03LX BOX () [address] [place] [address]SJ: 07/08/2018 Secondary NOT GIVENUNK [place] Insurance:SELF PAY [facility] Number: Effective Repository Date:2018-07-07 06/30/2018 RAMÓN Watts Primary IRIS Castro [place] [id number] E Insurance:HUMANA GOLD ROESCHDOB: [facility]EN[facility] [id number] [facility], Number: Repository [place] [address]Tkx: [id number] Date:2775-95-50NN BOX () [address] [place] [address]NE: 06/30/2018 Secondary IRIS S [place] Insurance:STATE FARM ROESCHDOB: Community AUTOPolicy Number: [id number] Hospital [id number] Repository Date: [place], [place] [address]XN: 06/30/2018 Tertiary NOT GIVENUNK [place] Insurance:SELF PAY [facility] Number: Effective Repository Date:2018-06-26 06/29/2018 RAMÓN Watts Primary IRIS Christensenoster [id number] E Insurance:STATE FARM ROESCHDOB: Community BUSTLE AUTOPolicy Number: [id number] [place] [id number] Repository [place] [address]Ghw: Date: N [facility] () [place] [address]BT: 06/29/2018 Secondary IRIS S [place] Insurance:HUMANA GOLD ROESCHDOB: Community MEDICAREPolicy [id number] Hospital Number: Repository [id number] Date:5997-90-89QL [address] [address]NH: 06/29/2018 Tertiary NOT GIVENUNK Evelyn Insurance:SELF PAY [facility] Number: Effective Repository Date:2018-06-29 06/29/2018 RAMÓN Watts Primary IRIS Rivas [id number] E [facility] BUSTLE AUTOPolicy Number: [id number] [facility], [id number] Repository [place] [address]Wdj: Date: N [facility] () [place] [address]NA: 06/29/2018 Secondary IRIS S [place] Insurance:KEYUR STRINGERCHDOB: [facility] [id number] Hospital Number: Repository [id number] Date:4202-36-25RK [address] [address]EJ: 06/29/2018 Tertiary NOT GIVENUNK Evelyn Insurance:SELF PAY [facility] Number: Effective Repository Date:2018-06-17 06/27/2018 RAMÓN Watts Primary IRIS Rivas [id number] E Insurance:[facility]: [facility] BUSTLE AUTOPolicy Number: [id number] [facility] [place], [id number] Repository [place] [address]Ftr: Date: N [facility] () [place] [address]FO: 06/27/2018 Secondary IRIS S [place] Insurance:HUMANStefanie STRINGERCHDOB: [facility] MEDICAREPolicy [id number] Hospital Number: Repository [id number] Date:1422-80-93FA [address] [address]YJ: 06/27/2018 Tertiary NOT GIVENUNK [place] Insurance:SELF PAY [facility] Number: Effective Repository Date:2018-06-27 06/25/2018 RAMÓN Watts Primary IRIS Christensenoster [id number] E Insurance:HUMANA FLORIDALMA ROESCHDOB: Community BUSTLE MEDICAREPolicy [id number] [facility], Number: Repository [place] [address]Pek: [id number] Date:1492-10-55JY BOX () [address] [place] [address]DY: 06/25/2018 Secondary IRIS S [place]elyn Insurance:STATE FARM ROESCHDOB: Community AUTOPolicy Number: [id number] Hospital [id number] Repository Date: [facility], [place] [address]UR: 06/25/2018 Tertiary NOT GIVENUNK [place] Insurance:SELF PAY [facility] Number: Effective Repository Date:2018-06-25 06/23/2018 RAMÓN Watts Primary IRIS Rivas [id number] E Insurance:[facility] ROESCHDOB: [facility] BUSTLE [facility] Number: [id number] [facility], [id number] Repository [place] [address]Ivb: Date: N [facility] () [place] [address]XX: 06/23/2018 Secondary IRIS S [place] Insurance:HUMANA FLORIDALMA ROGLENYSCHDOB: Community MEDICAREPolicy [id number] Hospital Number: Repository [id number] Date:7731-68-93KO [address] [place] [address]TE: 06/23/2018 Tertiary NOT GIVENUNK Evelyn Insurance:SELF PAY [facility] Number: Effective Repository Date:2018-06-23 06/23/2018 RAMÓN Watts Primary IRIS Christensenoster [id number] E Insurance:HUMANA FLORIDALMA ROGLENYSCHDOB: [facility] BUSTLE MEDICAREPolicy [id number] [facility] [place], Number: Repository [place] [address]Ywd: [id number] Date:1207-46-38VL BOX (XA) [address] [place] [address]AK: 06/23/2018 Secondary IRIS S [place] Insurance:STATE FARM ROESCHDOB: Community AUTOPolicy Number: [id number] Hospital [id number] Repository Date: [place], [place] [address]ZP: 06/23/2018 Tertiary NOT GIVENUNK Evelyn Insurance:SELF PAY [facility] Number: Effective Repository Date:2018-06-23 06/23/2018 RAMÓN Watts Primary IRIS Christensenoster [id number] E Insurance:STATE FARM ROESCHDOB: Community BUSTLE AUTOPolicy Number: [id number] [place] [id number] Repository [place] [address]Ubt: Date: N [facility] () [place] [address]MI: 06/23/2018 Secondary IRIS S [place] Insurance:HUMANA GOLD ROESCHDOB: Community MEDICAREPolicy [id number] Hospital Number: Repository [id number] Date:6399-07-25CB [address] [place] [address]KO: 06/23/2018 Tertiary NOT GIVENUNK Evelyn Insurance:SELF PAY [facility] Number: Effective Repository Date:2018-06-23 06/23/2018 RAMÓN Watts Primary IRIS Christensenoster [id number] E Insurance:STATE FARM ROESCHDOB: Community BUSTLE AUTOPolicy Number: [id number] [place] [id number] Repository [place] [address]Twj: Date: N [facility] () [place] [address]UP: 06/23/2018 Secondary IRIS S [place] Insurance:HUMANA GOLD ROESCHDOB: Community MEDICAREPolicy [id number] Hospital Number: Repository [id number] Date:4949-80-79ZS [address] [place] [address]WR: 06/23/2018 Tertiary NOT GIVENUNK [place] Insurance:SELF PAY [facility] Number: Effective Repository Date:2018-06-23 06/23/2018 RAMÓN Watts Primary IRIS Rivas [id number] E Insurance:STATE FARM ROESCHDOB: Community BUSTLE AUTOPolicy Number: [id number] [facility]amon[facility], [id number] Repository [place] [address]Dsn: Date: N [facility], () [place] [address]JF: 06/23/2018 Secondary IRIS S [place] Insurance:HUMANA GOLD ROESCHDOB: [facility] MEDICAREPolunitypoint health-[facility] [id number] Hospital Number: Repository [id number] Date:2584-00-51IW [address] [place] [address]PT: 06/23/2018 Tertiary NOT GIVENUNK [place] Insurance:SELF PAY [facility] Number: Effective Repository Date:2018-06-23 06/19/2018 RAMÓN Watts Primary IRIS Rivas [id number] E Insurance:HUMANA FLORIDALMA ROGLENYSCHDOB: Community BUSTLE MEDICAREPolicy [id number] [facility], Number: Repository [place] [address]Nbe: [id number] Date:3790-31-37QB BOX (LN) [address] [place] [address]YX: 06/19/2018 Secondary NOT GIVENUNK Ev[place] Insurance:SELF PAY [facility] Number: Effective Repository Date:2018-06-19 06/18/2018 RAMÓN Watts Primary IRIS Rivas [id number] E Insurance:STATE FARM ROESCHDOB: Community BUSTLE AUTOPolicy Number: [id number] [facility], [id number] Repository [place] [address]Mtt: Date: N [facility] () [place] [address]OC: 06/18/2018 Secondary IRIS Castro [place] Insurance:HUMANA GOLD ROESCHDOB: Community MEDICAREPolicy [id number] Hospital Number: Repository [id number] Date:3192-50-54BI [address] [place] [address]YR: 06/18/2018 Tertiary NOT GIVENUNK [place] Insurance:SELF PAY [facility] Number: Effective Repository Date:2018-06-18 06/18/2018 RAMÓN Watts Primary IRIS Castro [place] [id number] E Insurance:STATE FARM ROESCHDOB: [facility]USSUM[facility] AUTONorristown [facility] Hospital Number: [id number] [facility], [id number] Repository [place] [address]Kcs: Date: N [facility] () [place] [address]WO: 06/18/2018 Secondary IRIS S [place] Insurance:HUMANA GOLD ROESCHDOB: Community MEDICAREPolicy [id number] Hospital Number: Repository [id number] Date:9375-77-31UW [address] [place] [address]JH: 06/18/2018 Tertiary NOT GIVENUNK [place] Insurance:SELF PAY [facility] Number: Effective Repository Date:2018-06-18 06/18/2018 RAMÓN Watts Primary IRIS Castro Evelyn [id number] E Insurance:HUMANA GOLD ROESCHDOB: [facility] BUSSUM[facility] MEDICARENorristown State Hospital [id number] [facility], Number: Repository [place] [address]Rif: [id number] Date:2661-74-35WA BOX (CY) [address] [place] [address]UR: 06/18/2018 Secondary IRIS S [place] Insurance:STATE FARM ROESCHDOB: Community AUTOPolicy Number: [id number] Hospital [id number] Repository Date: [place], [place] [address]FP: 06/18/2018 Tertiary NOT GIVENUNK [place] Insurance:SELF PAY [facility] Number: Effective Repository Date:2018-06-18 06/18/2018 RAMÓN Watts Primary IRIS Rivas [id number] E Insurance:HUMANA GOLD ROESCHDOB: Community BUSTLE MEDICAREPolicy [id number] [facility]amon[facility] [place], Number: Repository [place] [address]Wad: [id number] Date:6587-58-18JV BOX () [id number] [place] [address]PK: 06/18/2018 Secondary IRIS S [place] Insurance:STATE FARM [facility]ENTERCHD[facility]: Community AUTOPolicy Number: [id number] Hospital [id number] Repository Date: [place], [place] [address]AU: 06/18/2018 Tertiary NOT GIVENUNK [place] Insurance:SELF PAY [facility] Number: Effective Repository Date:2018-06-18 06/18/2018 RAMÓN Watts Primary IRIS Rivas [id number] E Insurance:HUMANA GOLD ROESCHDOB: Community BUSTLE [facility]ENor[facility]own [facility] Hospital [id number] [facility]amon[facility], Number: [place]ository [place] [address]Pus: [id number] Date:8150-29-16HP BOX () [address] [place] [address]IJ: 06/18/2018 Secondary IRIS S [place] Insurance:STATE FARM ROESCHDOB: Community AUTOPolicy Number: [id number] Hospital [id number] Repository Date: [place], [place] [address]BQ: 06/18/2018 Tertiary NOT GIVENUNK Evelyn Insurance:SELF PAY Community [facility] Number: Effective Repository Date:2018-06-18 06/18/2018 RAMÓN Watts Primary IRIS Castro [place] [id number] E Insurance:HUMANA GOLD ROESCHDOB: Community BUSTLE MEDICAREPolicy [id number] Altamon[facility], Number: Repository [place] [address]Onu: [id number] Date:9562-89-84EA BOX () [address] [place] [address]CZ: 06/18/2018 Secondary IRIS S Evelyn Insurance:[facility]: Community AUTOPolicy Number: [id number] Hospital [id number] Repository Date: [place], [place] [address]ZI: 06/18/2018 Tertiary NOT GIVENUNK [place] Insurance:SELF PAY [facility] Number: Effective Repository Date:2018-06-18 06/18/2018 RAMÓN Watts Primary IRIS Castro Evelyn [id number] E Insurance:HUMANA GOLD ROESCHDOB: Community BUSTLE MEDICAREPolicy [id number] [facility], Number: [place]ository [place] [address]Leq: [id number] Date:6265-86-87PS BOX () [address] [place] [address]AI: 06/18/2018 Secondary IRIS S Evelyn [facility] AUTOPolicy Number: [id number] Hospital [id number] Repository Date: [place], [place] [address]LR: 06/18/2018 Tertiary NOT GIVENUNK Evelyn Insurance:SELF PAY [facility] Number: Effective Repository Date:2018-06-18 06/18/2018 RAMÓN Watts Primary IRIS Castro Evelyn [id number] E Insurance:HUMANA GOLD ROESCHDOB: [facility] BUSTLE [facility] [id number] [facility], Number: Repository [place] [address]Jgp: [id number] Date:9037-98-43ID BOX () [address]DSIB[address] [place] [address]YN: 06/18/2018 Secondary IRIS S Evelyn Insurance:STATE FARM ROESCHDOB: Community AUTOPolicy Number: [id number] Hospital [id number] Repository Date: [place], [place] [address]YJ: 06/18/2018 Tertiary NOT GIVENUNK Evelyn Insurance:SELF PAY [facility] Number: Effective Repository Date:2018-06-18 06/18/2018 RAMÓN Watts Primary IRIS Castro Evelyn [id number] E Insurance:HUMANA GOLD ROESCHDOB: Community BUSTLE MEDICAREPolicy [id number] Altamonte Springs, Number: Repository [place] [address]Low: [id number] Date:7749-90-95LS BOX () [address] [place] [address]BI: 06/18/2018 Secondary IRIS S Ev[place] Insurance:STATE FARM ROESCHDOB: Community AUTOPolicy Number: [id number] Hospital [id number] Repository Date: [place], [place] [address]KG: 06/18/2018 Tertiary NOT GIVENUNK Evelyn Insurance:SELF PAY [facility] Number: Effective Repository Date:2018-06-18 06/18/2018 RAMÓN Watts Primary IRIS Castro Evelyn [id number] E Insurance:HUMANA GOLD ROESCHDOB: Community BUSTLE MEDICAREPolicy [id number] [facility], Number: Repository [place] [id number]: [id number] Date:4517-32-48CS BOX () 70301QVSBPSHMA[address] [place] [address]BU: 06/18/2018 Secondary [place]IS S [place] Insurance:STATE FARM ROESCHDOB: Community AUTOPolicy Number: [id number] Hospital [id number] Repository Date: [place], [place] [address]QX: 06/18/2018 Tertiary NOT GIVENUNK [place] Insurance:SELF PAY [facility] Number: Effective Repository Date:2018-06-18 06/18/2018 RAMÓN Watts Primary IRIS Rivas [id number] E Insurance:HUMANA GOLD ROESCHDOB: Community BUSTLE MEDICAREPolicy [id number] Altamonte Springs, Number: [place]ository [place] [address]Ujd: [id number] Date:3438-90-82JO BOX () [address] [place] [address]FY: 06/18/2018 Secondary IRIS S Evelyn Insurance:STATE FARM [facility]: Community AUTOPolicy Number: [id number] Hospital [id number] Repository Date: [place], [place] [address]KF: 06/18/2018 Tertiary NOT GIVENUNK Evelyn Insurance:SELF PAY [facility] Number: Effective Repository Date:2018-06-18 06/18/2018 RAMÓN Watts Primary IRIS Rivas [id number] E Insurance:HUMANA GOLD ROESCHDOB: Community BUSTLE MEDICAREPenn Highlands Healthcarey [id number] [facility], Number: Repository [place] [address]Mcp: [id number] Date:5974-63-01FZ BOX () [address] [place] [address]SE: 06/18/2018 Secondary IRIS S Evelyn Insurance:STATE [facility]: Community AUTOPolicy Number: [id number] Hospital [id number] Repository Date: [place], [place] [address]DU: 06/18/2018 Tertiary NOT GIVENUNK [place] Insurance:SELF PAY Community [facility] Number: Effective Repository Date:2018-06-18 06/18/2018 RAMÓN Watts Primary IRIS Castro Evelyn [id number] E Insurance:HUMANA GOLD ROESCHDOB: Community BUSTLE MEDICAREBanner Behavioral Health Hospitalic [id number] Altamon[facility], Number: [place]ository [place] [address]Thn: [id number] Date:1604-04-41PR BOX () [address] [place] [address]MC: 06/18/2018 Secondary [place]IS S [place] Insurance:STATE [facility]: [facility] AUTOPolic Number: [id number] Hospital [id number] Repository Date: [place], [place] [address]EH: 06/18/2018 Tertiary NOT GIVENUNK Evelyn Insurance:SELF PAY [facility] Number: Effective Repository Date:2018-06-18 06/18/2018 RAMÓN Watts Primary IRIS Castro [place] [id number] E Insurance:HUMANA GOLD ROESCHDOB: [facility] BUSTLE MEDICAREPolicy [id number] [facility], Number: [place]ository [place] [address]Lbe: [id number] Date:6566-33-56EC BOX () [address] [place] [address]CA: 06/18/2018 Secondary IRIS S [place] Insurance:STATE [facility]: [facility] AUTOPolic Number: [id number] Hospital [id number] Repository Date: [place], [place] [address]FQ: 06/18/2018 Tertiary NOT GIVENUNK Evelyn Insurance:SELF PAY [facility] Number: Effective Repository Date:2018-06-18 06/18/2018 RAMÓN Watts Primary IRIS Castro [place] [id number] E Insurance:HUMANA GOLD ROESCHDOB: [facility] BUSTLE MEDICAREPolicy [id number] [facility]amon[facility], Number: [place]ository [place] [address]Jbt: [id number] Date:5244-36-44UM BOX () [address] [place] [address]VT: 06/18/2018 Secondary [place]IS S [place] Insurance:STATE FARM ROESCHDOB: Community AUTOPolicy Number: [id number] Hospital [id number] Repository Date: [place], [place] [address]VK: 06/18/2018 Tertiary NOT GIVENUNK Evelyn Insurance:SELF PAY [facility] Number: Effective Repository Date:2018-06-18 06/18/2018 RAMÓN Watts Primary IRIS Castro Evelyn [id number] E Insurance:HUMANA GOLD ROESCHDOB: Community BUSTLE MEDICAREPolicy [id number] Altamon[facility], Number: [place]ository [place] [address]Uxq: [id number] Date:7294-04-83SY BOX () [address] [place] [address]TI: 06/18/2018 Secondary IRIS S Eveyln Insurance:STATE FARM ROESCHDOB: Community AUTOPolicy Number: [id number] Hospital [id number] Repository Date: [place], [place] [address]CQ: 06/18/2018 Tertiary NOT GIVENUNK [place] Insurance:SELF PAY [facility] Number: Effective Repository Date:2018-06-18 06/18/2018 RAMÓN Watts Primary IRIS Christensenoster [id number] E Insurance:HUMANA GOLD ROESCHDOB: Community BUSTLE MEDICAREPolicy [id number] [facility], Number: [place]ository [place] [address]Wqt: [id number] Date:5254-09-27NZ BOX () [address] [place] [address]RQ: 06/18/2018 Secondary [place]IS S [place] Insurance:STATE FARM ROESCHDOB: Community AUTOPolicy Number: [id number] [id number] Repository Date: [place], [place] [address]II: 06/18/2018 Tertiary NOT GIVENUNK [place] Insurance:SELF PAY [facility] Number: Effective Repository Date:2018-06-18 06/18/2018 RAMÓN Watts Primary IRIS Rivas [id number] E Insurance:HUMANA GOLD ROESCHDOB: Community BUSTLE MEDIC[facility]ENorristown [facility] Hospital [id number] [place] [address], Number: [place]ository [place] [address]Ydt: [id number] Date:8030-15-28JE BOX () 37032VWFTRWUOK[address] [place] [address]NX: 06/18/2018 Secondary IRIS S Evelyn Insurance:STATE FARM ROESCHDOB: [facility]ONor[facility]own State Hospital Number: [id number] Hospital [id number] Repository Date: [place], [place] [address]AZ: 06/18/2018 Tertiary NOT GIVENUNK [place] Insurance:SELF PAY [facility] Number: Effective Repository Date:2018-06-18 06/18/2018 RAMÓN Watts Primary IRIS Rivas [id number] E Insurance:HUMANA GOLD ROESCHDOB: Community BUSTLE [facility]ENor[facility]own [facility] Hospital [id number] [place] [address], Number: [place]ository [place] [address]Ddr: [id number] Date:6137-85-71NE BOX () [address] [place] [address]AF: 06/18/2018 Secondary NOT GIVENUNK Evelyn Insurance:SELF PAY [facility] Number: Effective Repository Date:2018-06-18 06/18/2018 RAMÓN Watts Primary IRIS Rivas [id number] E Insurance:HUMANA GOLD ROESCHDOB: Community BUSTLE MEDICAREPenn Highlands Healthcarey [id number] [place] [address], Number: Repository [place] [address]Brx: [id number] Date:7356-46-39UG BOX (HP) 48468KIIGDRIFX[address] [place] [address]ON: 06/18/2018 Secondary NOT GIVENUNK Evelyn Insurance:SELF PAY [facility] Number: Effective Repository Date:2018-06-18 06/17/2018 RAMÓN Watts Primary IRIS Rivas [id number] E Insurance:HUMANA GOLD ROESCHDOB: Community BUSTLE MEDICAREPolicy [id number] Altamon[facility] Springs, Number: [place]ository [place] [address]Lwt: [id number] Date:2718-13-92CW BOX () [address] [place] [address]NN: 06/17/2018 Secondary NOT GIVENUNK [place] Insurance:SELF PAY [facility] Number: Effective Repository Date:2018-06-17 06/15/2018 RAMÓN Watts Primary IRIS Rivas [id number] E Insurance:HUMANA GOLD ROESCHDOB: Community BUSTLE MEDICAREPolicy [id number] [facility], Number: [place]ository [place] [address]Ebd: [id number] Date:1612-72-59VU BOX () [address] [place] [address]YN: 06/15/2018 Secondary NOT GIVENUNK [place] Insurance:SELF PAY [facility] Number: Effective Repository Date:2018-06-15 06/12/2018 IRIS Castro Primary IRIS Becerraaritan ROESCHDOB: Insurance:HUMANAPolic ROESCHDOB: [facility] E y Number: Effective [id number] System BUSTLE Date:2018-06-12 [facility] 3816-89-03NhmsSel[place], [place] Name:CD:[id number] [address]Tdw: [address] [place] [address]Zha: [id number]: (800) (HP) [phone] (HP) (WP) 06/12/2018 IRIS [facility]: Insurance:[facility]: [facility] E y Number: Effective [id number] System BUSTLE Date:2018-06-12 [facility] 8071-37-49WhcbSel[place], [place] Name:CD:[id number] [facility] [address]Dgl: 80009JBQCJHDND, [place] [address]Ujz: [id number]: (800) (HP) [phone] (HP) (WP) 06/12/2018 IRIS [facility]: [facility]B: [facility] ChoicePolicy Number: [id number] Repository [facility] [id number] [facility], Date:Plan Name:[place], [place] [id number]: [place] [id number]: (HP) (HP) 06/12/2018 IRIS [facility]B: Insurance:[facility] CenterB: [facility] E ChoicePolicy Number: [id number] Repository [facility] [id number] [facility], Date:Plan Name:[place], [place] [id number]: [place] [id number]: (HP) (HP) 06/01/2018 RAMÓN Watts Primary [place] [id number] [address] Insurance:SELF PAY [facility], Number: Effective Repository [place] [address]Npv: Date:2018-01-20 (HP) 05/01/2018 RAMÓN Watts Primary IRIS Rivas [id number] E Insurance:HUMANA GOLD ROESCHDOB: Community BUSTLE MEDICAREPolicy [id number] Altamonte Springs, Number: [place]ository [place] [address]Lmc: [id number] Date:1898-92-10LW BOX (HP) [id number] [place] [address]TW: 05/01/2018 Secondary NOT GIVENUNK [place] Insurance:SELF PAY [facility] Number: Effective Repository Date:2018-05-01 04/29/2018 IRIS Castro Primary IRIS Castro [facility]: Insurance:HUMANAPol ROESCHDOB: [facility] E y Number: Effective [id number] System BUSTLE Date:2018-04-29 [facility] [id number] [place] [address] Name:CD:[id number] BOX [facility]Dfi: [address] [place], [place] [address]Tel: [phone]: (800) (HP) [phone] (HP) () 04/29/2018 IRIS SIMMONS [facility]: Insurance:[employer] Gold ROESCHDOB: [facility] Number: [id number] Repository BUSTLE [id number] E [facility], Date:Plan Name:[place], [place] [id number]: [place] [phone]: (YH) (HP) 03/19/2018 RAMÓN Watts Primary IRIS Rivas [id number] E Insurance:HUMANA GOLD ROESCHDOB: Community BUSTLE MEDICAREPolicy [id number] Altamonte Springs, Number: [place]ository [place] [address]Hmv: [id number] Date:9179-63-76CA BOX () 57020MQGXYNRKX[address] [place] [address]SE: 03/19/2018 Secondary NOT GIVENUNK Evelyn Insurance:SELF PAY [facility] Number: Effective Repository Date:2018-03-18 03/18/2018 RAMÓN Rivas [id number] E Insurance:HUMANA GOLD ROESCHDOB: Community BUSTLE MEDICAREPolicy [id number] Altamonte Springs, Number: [place]ository [place] [address]Koh: [id number] Date:5061-07-38HV BOX () [address] [place] [address]LG: 03/18/2018 Secondary NOT GIVENUNK Evelyn Insurance:SELF PAY [facility] Number: Effective Repository Date:2018-02-16 02/20/2018 IRIS [facility] IRIS [facility]: Insurance:HUMANAPolic ROESCHDOB: [facility] E y Number: Effective [id number] System BUSTLE Date:2018-02-20 [facility] 8273-76-97Zuzv[address] [id number]: Name:CD:[id number] [facility] [id number]: [address] [place] [address] () [phone]: [phone] () [phone] () 02/20/2018 IRIS SIMMONS [facility]: Insurance:Hum[employer] Gold ROESCHDOB: [facility] E ChoiceNorristown [facility] Hospital Number: [id number] Repository [facility] [id number] E [facility], Date:Plan Name:[place], [place] [id number]: [place] [id number]: (IB) () 01/28/2018 RAMÓN Watts Primary IRIS Rivas [id number] E Insurance:HUMANA GOLD ROESCHDOB: [facility] BUSTLE MEDICAREPolicy [id number] Altamonte Springs, Number: [place]ository [place] [address]Usr: [id number] Date:2384-33-83ZV BOX (HP) [address] [place] [address]FM: 01/28/2018 Secondary NOT GIVENUNK Evelyn Insurance:SELF PAY [facility] Number: Effective Repository Date:2017-12-18 01/20/2018 RAMÓN Watts Primary IRIS Castro [place] [id number] E Insurance:HUMANA GOLD ROESCHDOB: Community BUSTLE MEDICAREPolicy [id number] Altamonte Springs, Number: [place]ository [place] [address]Ove: [id number] [phone] Date:2290-58-50IG BOX -6 () [address] [place] [address]GT: 01/20/2018 Secondary NOT GIVENUNK [place] Insurance:SELF PAY [facility] Number: Effective Repository Date:2018-01-20 12/29/2017 IRIS Castro Primary IRIS Cuevas ROGLENYSCHDOB: Insurance:HUMANAPolic ROESCHDOB: [facility] E y Number: Effective [id number] System BUSTLE Date:2017-12-29 [facility] 9019-94-33BegdSelmer, [place] [id number]: Name:CD:[id number] [facility] [id number]: [address] [place] [address] (HP) [phone]: [phone]) (HP) [phone] () 12/12/2017 IRIS Castro Primary IRIS Cuevas ROESCHDOB: Insurance:HUMANAPolic ROESCHDOB: [facility] E y Number: Effective [id number] System BUSTLE Date:2017-12-12 BUSTLE Repository [facility], 3665-49-60Eolv [facility], [place] [id number]: Name:CD:[id number] BOX [place] [id number]: [address] [place] [address] (HP) [phone]: (800) (HP) [phone] (WP) 12/10/2017 IRIS Castro Primary IRIS Cuevas [facility] HospitalB: [facility] E y Number: Effective [id number] System BUSTLE Date:2017-12-10 BUSTLE Repository [facility], 8841-12-71Cjyy [facility], [place] [id number]: Name:CD:[id number] BOX [place] [id number]: [address] [place] [address] (HP) [phone]: (800) (HP) [phone] (WP) 12/02/2017 IRIS S Primary IRIS Castro [facility]: Insurance:MEDICARE ROESCHDOB: [place] E [facility] [id number] [facility] Number: [facility], [id number] [facility], Repository [place] [address]Cda: Date:Plan Name:CARE [place] [address]Yir: (HP) (HP) 10/27/2017 RAMÓN Watts Primary IRIS Castro [facility] [id number] E Insurance:[facility]UMANCENTINELA FRE[facility], MARINA CAMPUSB: Community BUSTLE MEDICAREPolicy [id number] Altamonte [facility], Number: [place]ository [place] [address]Fql: [id number] [phone] Date:2236-31-49OZ BOX -6 (HP) [address] [place] [address]DL: 10/27/2017 Secondary NOT GIVENUNK Evelyn Insurance:SELF PAY [facility] Number: Effective Repository Date:2017-09-23 10/27/2017 RAMÓN Watts Primary IRIS Christensenoster [id number] E Insurance:HUMANA GOLD ROESCHDOB: [facility] BUSTLE MEDICAREPolicy [id number] [facility]amon[facility], Number: [place]ository [place] [address]Lra: [id number] [phone] Date:6453-44-35MB BOX -6 (HP) [address] [place] [address]BG: 10/27/2017 Secondary NOT GIVENUNK Evelyn Insurance:SELF PAY [facility] Number: Effective Repository Date:2017-10-27 10/15/2017 RAMÓN Watts Primary IRIS Castro Evelyn [id number] E Insurance:HUMANA GOLD ROESCHDOB: Community BUSTLE MEDICAREPolicy [id number] [place] [address], Number: Repository [place] [address]Yfn: [id number] [phone] Date:2972-17-48YI BOX -6 (HP) [address] [place] [address]WP: 10/15/2017 Secondary NOT GIVENUNK [place] Insurance:SELF PAY [facility] Number: Effective Repository Date:2017-09-24 10/14/2017 RAMÓN Watts Primary IRIS Castro Evelyn [id number] E Insurance:HUMANA GOLD ROESCHDOB: [facility] BUSTLE MEDICAREPolicy [id number] Altamon[facility], Number: Repository [place] [address]Tav: [id number] [phone] Date:4415-36-84WP BOX -6 ) [address] [place] [address]YO: 10/14/2017 Secondary NOT GIVENUNK Evelyn Insurance:SELF PAY [facility] Number: Effective Repository Date:2017-09-23 09/25/2017 RAMÓN Watts Primary IRIS Castro Evelyn [id number] E Insurance:HUMANA GOLD ROESCHDOB: Community BUSTLE MEDICAREPolicy [id number] Altamon[facility], Number: Repository [place] [address]Ceg: [id number] [phone] Date:6211-38-65DB BOX -6 (HP) [address] [place] [address]ZA: 09/25/2017 Secondary NOT GIVENUNK [place] Insurance:SELF PAY [facility] Number: Effective Repository Date:2017-07-16 09/11/2017 RAMÓN Watts Primary IRIS Christensenoster [id number] E Insurance:KEYUR ARRIAGADOB: Community BUSTLE MEDICAREPenn Highlands Healthcarey [id number] Altamon[facility], Number: [place]ository [place] [address]Slg: [id number] [phone] Date:8176-86-92HE [address] -[address] () [id number] [place] [address]QV: 09/11/2017 Secondary NOT GIVENUNK Evelyn Insurance:SELF PAY [facility] Number: Effective Repository Date:2017-07-19 09/10/2017 ARMÓN Watts Primary IRIS Castro Evelyn [id number] E Insurance:KEYUR ARRIAGADOB: Community BUSTLE MEDICAREPenn Highlands Healthcarey [id number] Altamonte Springs, Number: Repository [place] [address]Ynk: [id number] [phone] Date:4477-95-75VU BOX -6 (HP) [address] [place] [address]SR: 09/10/2017 Secondary NOT GIVENUNK Evelyn Insurance:SELF PAY [facility] Number: Effective Repository Date:2017-09-10
== END 2018-08-10 23:59 ==
LOC: WC 09:00
PROVIDERS: Family Provider Internal Medicine; PCP Internal Medicine; Visit Provider Surgery
DX: S80.01XA Contusion of right knee, initial encounter (principal); X58.XXXA Exposure to other specified factors, initial encounter
CPT/HCPCS: 11042; 11045; 87070; 87075; 87077; 87186; 87205; 97606; 99213; G0463

== ENCOUNTER → 2018-08-18 14:58 | Outpatient (CLI) | payer MEDICARE, SELFPAY ==
[2018-08-18 13:35] VITALS: BMI 24.8
[2018-08-18 16:35] LABS: Anion Gap 9 (5-15); BUN 51 mg/dL (7-18); BUN/Creat Ratio 22.3 RATIO (10-20); Calcium,Total 9.2 mg/dL (8.5-10.1); Chloride 96 mmol/L (98-107); Creatinine, Serum 2.29 mg/dL (0.55-1.02); EST Glomerular Filtration Rate 22 mL/min (>60); Est Glom Filt Rate - Afr Amer 27 mL/min (>60); Glucose 102 mg/dL (74-106); Potassium 3.9 mmol/L (3.5-5.1); Sodium Level 135 mmol/L (136-145)
== END ==
PROVIDERS: Family Provider Internal Medicine; PCP Internal Medicine; Referring Provider Internal Medicine Endocrinology, Diabetes & Metabolism; Visit Provider Internal Medicine Endocrinology, Diabetes & Metabolism
DX: I10 Essential (primary) hypertension (principal); E27.49 Other adrenocortical insufficiency; Z79.899 Other long term (current) drug therapy; S80.01XA Contusion of right knee, initial encounter; X58.XXXA Exposure to other specified factors, initial encounter; Y93.9 Activity, unspecified; Y92.9 Unspecified place or not applicable; Y99.9 Unspecified external cause status; Z96.651 Presence of right artificial knee joint
CPT/HCPCS: 36415; 80048; 87070; 87075; 87205

== ENCOUNTER 2018-08-31 10:15 | Outpatient (RCR) | payer MEDICARE, SELFPAY ==
[2018-08-11 01:30] VITALS: BP 94/67; PULSE 122; RESP 18; TEMP 36.3
[2018-08-18 13:35] VITALS: BP 96/63; PULSE 88; RESP 18; TEMP 36.4; BMI 24.8
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
[2018-08-24 09:58] VITALS: BP 135/72; PULSE 112; RESP 18; TEMP 36.2; BMI 24.8
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
[2018-08-31 10:03] VITALS: BP 105/67; PULSE 94; RESP 22; TEMP 35.9; BMI 24.8
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
== END 2018-09-10 23:59 ==
LOC: WC 10:15
PROVIDERS: Family Provider Internal Medicine; PCP Internal Medicine; Referring Provider Surgery; Visit Provider Surgery
DX: S80.01XA Contusion of right knee, initial encounter (principal); X58.XXXA Exposure to other specified factors, initial encounter; Z96.651 Presence of right artificial knee joint
CPT/HCPCS: 11042; 11045; 87070; 87075; 87077; 87205; 97606

== ENCOUNTER 2018-09-01 15:35 | Inpatient (IN) | payer MEDICARE, SELFPAY ==
[2018-08-24 09:58] VITALS: BMI 24.8
[2018-08-31 10:03] VITALS: BMI 24.8
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
[2018-09-01] VITALS (8 sets, daily range): BP systolic 90–123; BP diastolic 57–83; PULSE 64–105; RESP 16–20; TEMP 36.1–37.1; O2SAT 93–100; BMI 25.0
[2018-09-01] MEDS: Vancomycin IV 1,000 MG/200 ML BAG 200 MG IV (10:05)
--- NOTE | 2018-09-01 11:10 | UL_PTH ---
PATIENT: IRIS DAVENPORT LOC: MS2 U#:[id number] AGE/SX: 78/F ROOM: [facility] [place]09/01/[address]: Dr. Jalil Ferreira MD : [id number] BED: 1 DIS: 09/03/2018 SPEC #: [id number] RECD: 09/02/18 07:03 STATUS: REYES REQ #: [id number] SELENA: 09/01/18 11:[address]: Jalil Ferreira DEPT: SURGICAL PATHOLOGY RECD BY: Trenton Jaimes ENTERED: 09/02/18 08:43 SP TYPE: ULCER OTHR DR: MD Dr. Brayden Marti MD Tissues: Knee, NOS Procedures: Surgery Specimen Level IV HEADER OPERATION: Excisional debridement nonhealing MRSA ulcer right knee PRE-OP DIAGNOSIS: Nonhealing hematoma ulcers right knee TISSUE SUBMITTED: Right knee hematoma ulcer MICROSCOPIC DIAGNOSIS Hematoma ulcer of right knee, excision: Granulation with associated fibrosis. Blood clots. Fragment of skin with no pathologic change. AM:juan j 09/03/18 COMMENT Clinical correlation is suggested. MICROSCOPIC DESCRIPTION Slides are reviewed. GROSS DESCRIPTION Received in fixative is one container labeled with the patient's name and designated right knee hematoma ulcer. The specimen consists of multiple irregular fragments of red-cannon soft tissue that in aggregate measure 3 x 2.5 x 0.2 cm. The specimen is totally submitted in one cassette. / AM:juan j 09/02/18 TC:5 CPT: 56985
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
[2018-09-01] MEDS: HYDROmorphone 0.5 MG/0.5 ML SYRINGE IV ×2 (16:29→22:06)
[2018-09-01 17:41] LABS: Anion Gap 8 (5-15); BUN 29 mg/dL (7-18); BUN/Creat Ratio 18.6 RATIO (10-20); Calcium,Total 8.8 mg/dL (8.5-10.1); Chloride 101 mmol/L (98-107); Creatinine, Serum 1.56 mg/dL (0.55-1.02); EST Glomerular Filtration Rate 34 mL/min (>60); Est Glom Filt Rate - Afr Amer 41 mL/min (>60); Estimated Creatinine Clearance 33.18 ml/min; Glucose 94 mg/dL (74-106); Sodium Level 136 mmol/L (136-145)
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
--- NOTE | 2018-09-01 18:11 | PCM.RX.CS ---
Consult Pharmacy has been consulted to manage selected antiobiotic: Vancomycin Type of Consult: New start Suspected Infection: Skin/Soft tissue Prior Doses of Antibiotics Received/Current Regimen: Received preop dose of 1000mg IV x1 at 10:05 today. Labs: Sodium 136 mmol/L (136-145) 09/01/18 16:30 Potassium 4.0 mmol/L (3.5-5.1) 09/01/18 16:30 Chloride 101 mmol/L (98-107) 09/01/18 16:30 Carbon Dioxide 27.0 mmol/L (21.0-32.0) 09/01/18 16:30 Anion Gap 8 (5-15) 09/01/18 16:30 BUN 29 mg/dL (7-18) H 09/01/18 16:30 Creatinine 1.56 mg/dL (0.55-1.02) H 09/01/18 16:30 Est GFR (MDRD) Af Amer 41 mL/min (>60) L 09/01/18 16:30 Est GFR (MDRD) Non-Af 34 mL/min (>60) L 09/01/18 16:30 BUN/Creatinine Ratio 18.6 RATIO (10-20) 09/01/18 16:30 Glucose 94 mg/dL (74-106) 09/01/18 16:30 Weight used for dosin.2 kg Estimated Creatinine Clearance: 33 ml/min Goal Trough: 10-15 mcg/mL Pharmacy Plan for Drug Dosing: Plan to continue with 750mg IV q24h to start tomorrow morning. A trough will be obtained before the 3rd dose. Pharmacy Service will continue to monitor and adjust dosing as required. Follow-Up Labs: Trough Vancomycin Labs to be done on [date and time ordered]: 09/03/18 AT 09:30
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
[2018-09-01] MEDS: Albuterol 2.5 MG/3 ML VIAL.NEB. INHALATION (19:21)
[2018-09-01] MEDS: Budesonide Respules 0.5 MG/2 ML AMPUL.NEB. INHALATION (19:21)
[2018-09-01] MEDS: Hydrocortisone 10 MG Tablet PO (19:54)
[2018-09-01] MEDS: oxyCODONE 5 MG Tablet PO (20:05)
[2018-09-01] MEDS: Lactated Ringers 1,000 ML 60 ML IV (22:09)
[2018-09-01] MEDS: Pravastatin 40 MG Tablet PO (22:11)
[2018-09-01] MEDS: Piperacil/Tazobactam 3.375 GM/50 ML ML IV (22:11)
[2018-09-01] MEDS: Amitriptyline 25 MG Tablet 50 MG PO (22:11)
[2018-09-01] MEDS: Docusate Sodium 100 MG Capsule PO (22:11)
[2018-09-01] MEDS: BRIMONIDINE 0.15% 5 ML Bottle 1 DRP EACH EYE (22:11)
[2018-09-01] MEDS: 0.9% NaCl IVPB Med Flush (250 mL) 15 ML IV (22:14)
[2018-09-01] MEDS: Acetaminophen 500 MG Tablet 1000 MG PO (22:50)
[2018-09-02] VITALS (10 sets, daily range): BP systolic 91–114; BP diastolic 36–69; PULSE 64–116; RESP 16–20; TEMP 36.6–37; O2SAT 94–97
[2018-09-02] MEDS: oxyCODONE 5 MG Tablet PO ×4 (03:20→20:48)
[2018-09-02 06:01] LABS: Hematocrit 30.9 % (37-47); Hemoglobin 9.6 g/dl (12.0-15.0); Mean Corp Hgb Conc 31.1 g/gl (32-36); Mean Corpuscular Hgb 31.9 pg (27.0-32.0); Mean Corpuscular Volume 102.7 fL (81-99); Mean Platelet Vol. 9.1 fl (6.2-12.0); Platelet Count 199 K/mm3 (150-450); RBC Distribution Width CV 17.1 % (11.6-14.6); RBC Distribution Width SD 61.7 fl (35.1-43.9); Red Blood Count 3.01 M/mm3 (4.2-5.4); White Blood Count 8.2 K/mm3 (4.4-11.0)
[2018-09-02 06:02] LABS: Scan Indicated on CBC? Y/N NO
[2018-09-02] MEDS: HYDROmorphone 0.5 MG/0.5 ML SYRINGE IV (06:07)
[2018-09-02] MEDS: Piperacil/Tazobactam 3.375 GM/50 ML ML IV ×3 (06:07→20:53)
[2018-09-02] MEDS: Enoxaparin 30 MG/0.3 ML Syringe SC (06:08)
[2018-09-02] MEDS: Levothyroxine 88 MCG Tablet PO (06:08)
[2018-09-02 06:19] LABS: ALB/GLOB Ratio 0.9 RATIO (0.9-2.4); AST(SGOT) 20 U/L (15-37); Alanine Aminotransfer ALT/SGPT 17 U/L (13-56); Alkaline Phosphatase 75 U/L (45-117); Anion Gap 8 (5-15); BUN 24 mg/dL (7-18); BUN/Creat Ratio 16.1 RATIO (10-20); Calcium,Total 8.3 mg/dL (8.5-10.1); Chloride 102 mmol/L (98-107); Creatinine, Serum 1.49 mg/dL (0.55-1.02); EST Glomerular Filtration Rate 36 mL/min (>60); Est Glom Filt Rate - Afr Amer 44 mL/min (>60); Estimated Creatinine Clearance 34.74 ml/min; Globulin 3.5 g/dL (2.2-4.2); Glucose 111 mg/dL (74-106); Potassium 3.9 mmol/L (3.5-5.1); Protein, Total 6.5 g/dL (6.4-8.2); Sodium Level 137 mmol/L (136-145)
[2018-09-02] MEDS: Budesonide Respules 0.5 MG/2 ML AMPUL.NEB. INHALATION ×2 (07:23→20:25)
[2018-09-02] MEDS: Albuterol 2.5 MG/3 ML VIAL.NEB. INHALATION ×3 (07:23→20:25)
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
[2018-09-02] MEDS: BRIMONIDINE 0.15% 5 ML Bottle 1 DRP EACH EYE ×2 (10:46→20:47)
[2018-09-02] MEDS: Citalopram 20 MG Tablet PO (10:46)
[2018-09-02] MEDS: Hydrocortisone 10 MG Tablet PO ×2 (10:46→16:33)
[2018-09-02] MEDS: Carvedilol 25 MG Tablet PO ×2 (10:46→16:33)
[2018-09-02] MEDS: Docusate Sodium 100 MG Capsule PO ×2 (10:46→20:47)
[2018-09-02] MEDS: Multivitamins,Therapeutic Tablet 1 TABLET PO (10:46)
[2018-09-02] MEDS: Magnesium Oxide 400 MG Tablet PO (10:46)
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
--- NOTE | 2018-09-02 12:00 | CASEMGMT ---
Addendum entered by Destinee Cervantes 09/02/18 16:32: Call placed to RJ Hand, @ [facility]. Peace states pt had long-term for dressing changes. She was made aware pt will be discharged home with wound vac and that dressing changes will be completed weekly @ [facility]. Pt will no longer need jail services on discharge. PT/OT assessments have been reviewed. PT recommending further skilled therapy. Resumption of HHC order placed for PT only. Peace notified of this and also made aware probable discharge tomorrow or Friday. Original Note: RN CM CANDLE CUTTER CM to room to meet with patient for initial transition planning/care coordination assessment. RN MICHAEL introduced self and role at [facility]. Pt voices understanding and consents to assessment at this time. Pt sitting up in chair in no distress at this time. in room visiting. Pt is A/O at this time and answers all questions appropriately. Care providers, pharmacy, and demographics verified at this time. PCP:Mario Specialists: Reina Mosher Pharmacy: [facility] in [place]. [facility] Retail on day of d/c. Insurance: [employer] Medicare Prescription Benefit: [employer] Medicare Living Will/HPOA: Has both LW and HCPOA, who is her Yoshi Arriaga Living Arrangements: Lives in 2 story home with her . 1st floor set up. 3 steps to enter. Transportation: Pt states drives self and states no transportation concerns at this time. drives also. DME: States has the following DME: tub bench, cane, walker, CPAP. States is in the process of getting a Medical Alert button through [employer]. Pt states no need for further DME at this time. HHC/SNF: Has never been to a SNF. [facility] Pt wishes to return home and states has no concerns with going home at time of discharge. CM to follow for any discharge planning/needs. Pt voices no further concerns/needs at this time. Advised pt to ask for CM if any further questions/concerns/needs arise. Voices understanding. PLAN: Home with resumption of HHC. Shahab ALMANZA RN, CM
--- NOTE | 2018-09-02 12:17 | NURSING ---
wound photo: Right Anterior/Medial Knee
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
[2018-09-02] MEDS: proMETHazine 25 MG Tablet PO (19:03)
[2018-09-02] MEDS: Acetaminophen 500 MG Tablet 1000 MG PO (19:04)
[2018-09-02] MEDS: Pravastatin 40 MG Tablet PO (20:46)
[2018-09-02] MEDS: Amitriptyline 25 MG Tablet 50 MG PO (23:07)
[2018-09-03 02:25] VITALS: BP 109/80; PULSE 102; RESP 18; TEMP 36.8; O2SAT 95
[2018-09-03 06:42] LABS: Anion Gap 7 (5-15); BUN 25 mg/dL (7-18); BUN/Creat Ratio 18.2 RATIO (10-20); Calcium,Total 8.6 mg/dL (8.5-10.1); Chloride 102 mmol/L (98-107); Creatinine, Serum 1.37 mg/dL (0.55-1.02); EST Glomerular Filtration Rate 40 mL/min (>60); Est Glom Filt Rate - Afr Amer 48 mL/min (>60); Estimated Creatinine Clearance 37.78 ml/min; Glucose 96 mg/dL (74-106); Sodium Level 136 mmol/L (136-145)
[2018-09-03] MEDS: Levothyroxine 88 MCG Tablet PO (06:44)
[2018-09-03] MEDS: Enoxaparin 30 MG/0.3 ML Syringe SC (06:44)
[2018-09-03] MEDS: Piperacil/Tazobactam 3.375 GM/50 ML ML IV (06:44)
[2018-09-03 07:02] VITALS: PULSE 95; RESP 18; O2SAT 94
[2018-09-03] MEDS: Albuterol 2.5 MG/3 ML VIAL.NEB. INHALATION (07:02)
[2018-09-03] MEDS: Budesonide Respules 0.5 MG/2 ML AMPUL.NEB. INHALATION (07:03)
[2018-09-03 07:36] VITALS: BP 111/76; PULSE 99; RESP 18; TEMP 36.7; O2SAT 98
[2018-09-03] MEDS: oxyCODONE 5 MG Tablet PO (07:38)
[2018-09-03] MEDS: Carvedilol 25 MG Tablet PO (07:38)
[2018-09-03] MEDS: Citalopram 20 MG Tablet PO (07:39)
[2018-09-03] MEDS: Docusate Sodium 100 MG Capsule PO (07:39)
[2018-09-03] MEDS: Multivitamins,Therapeutic Tablet 1 TABLET PO (07:39)
[2018-09-03] MEDS: BRIMONIDINE 0.15% 5 ML Bottle 1 DRP EACH EYE (07:39)
[2018-09-03] MEDS: Hydrocortisone 10 MG Tablet PO (07:39)
[2018-09-03 07:46] VITALS: PULSE 99
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
[2018-09-03 09:51] LABS: Vancomycin, Trough Level 9.4 ug/mL (5.0-15.0)
[2018-09-03] MEDS: Acetaminophen 500 MG Tablet 1000 MG PO (10:24)
--- NOTE | 2018-09-03 11:25 | PN.ID_ITS ---
Subjective: Feeling well, mild abd soreness, no fever, no n/v/d. - Physical Exam General: Alert, Cooperative, No apparent distress Lungs: Clear to auscultation, Normal air movement Cardiovascular: Regular rate, Regular Rhythm Abdomen: Soft, Non Tender, Non-Distended Skin: Ulcer/ Wound - bandaged knee and abd Vital Signs Temp Pulse Resp BP Pulse Ox 98.1 F 99 18 111/76 98 09/03/18 07:36 09/03/18 07:46 09/03/18 07:36 09/03/18 07:36 09/03/18 07:36 Oxygen Delivery Method Room Air Weight: 79.2 kg Body Mass Index (BMI) 25.0 Finger Stick Blood Glucose 146 Intake and Output for Last 24 Hours 09/01/18 09/02/18 09/03/18 23:59 23:59 23:59 Intake Total 1720 / 1720 2924.4 / 2924.4 500 / 500 Balance 1720 / 1720 2924.4 / 2924.4 500 / 500 Microbiology Past 72 Hours 09/01/18 14:38 Gram Stain - Final Wound - Leg, Right Wound Culture - Final Gram positive jennie Anaerobic Culture - Preliminary No growth in 48 hours. Laboratory Tests Past 24 Hrs 09/03/18 09/03/18 06:10 09:10 Sodium 136 Potassium 4.0 Chloride 102 Carbon Dioxide 27.0 Anion Gap 7 BUN 25 H Creatinine 1.37 H Estim Creat Clear Calc 37.78 Est GFR (MDRD) Af Amer 48 L Est GFR (MDRD) Non-Af 40 L BUN/Creatinine Ratio 18.2 Glucose 96 Calcium 8.6 Vancomycin Trough 9.4 Medical Necessity - Tobacco Use Smoking Status: Never smoker Route of nutrition/ use of supplements: [] Nutritional Intake: [] IV Site: [] Andrews Catheter: [] - Assessment/Plan Antibiotics: [] Assessment/Plan: [] Active and Suspected Problems (Last Reviewed 07/15/18 @ 15:47 by Peace Maldonado) Traumatic hematoma of right knee (Acute) Open wound of right knee (Acute) open surgical hematoma wound right knee Wound cxs in 07/2018 with MRSA and enterobacter and in 08/2018 with corynebacterium and anaerobes. Taken to OR 09/01/[address] Ferreira for debridement and skin graft. Has underlying knee replacement, but no sign of joint involvement. Surg cx with GPR. Corynebacterium striatum has limited oral options. She has had problems with picc in past and is not interested in IV therapy. No growth of GNRs after long course of bactrim. Plan will be for 10 day course of linezolid and augmentin. She is to stop amitriptyline. Celexa is a low dose. Counselled her re:signs of serotonin syndrome (fever, confusion, rigidity). I gave her my card. I can follow up with her at wound clinic as needed. Will follow, d/w nurse outreach case manager.
[2018-09-03] MEDS: 0.9% NaCl Peripheral Flush Adult/Peds IV (12:05)
[2018-09-03] MEDS: Amox/Clavulanate 875 MG Tablet PO (12:05)
[2018-09-03] MEDS: Linezolid 600 MG Tablet PO (12:05)
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
--- NOTE | 2018-09-03 12:31 | PCM.DC ---
You will use the following diet at home:: No restrictions, Other - encourage nutritional supplementation with protein to help the healing process. Discharge Activity: May Shower - wear plastic bag over right leg when showering., - - minimize standing. may ambulate with the walker. elevate right leg when sitting. May shower in (days): 1 - wear plastic bag over right leg when showering. May resume sexual activity in: No Restrictions Weight Bearing Status: Weight bearing as tolerated - minimize standing. Keep extremity elevated above heart level: Right Leg Call your doctor if your incision/area has: Continuous Slow Oozing, Sudden Increased Bleeding, Increased Pain/ Swelling, Increased Redness, Foul Smelling Discharge, Swelling at the incision site Call your doctor if you observe: Fever of 101 or Higher, Coldness, Increased Pain, Shortness of breath, Chest pain, Calf discomfort, Uncontrolled pain Suture Line Care: - - after dressing remove right abdominal wall, may apply antibiotic ointment to suture line daily. Change Dressing in (Days):: 1 - abdominal dressing only. Remove Dressing in (days):: 4 - will remove vac dressing at wound center on 09/07/18. Cleanse incision/area with: - - wear plastic bag over right leg when showering. Additional Instructions: Patient may resume Eliquis when seen at the Wound Center on Friday09/07/18. Allergies/Adverse Reactions: Allergies levofloxacin [Levofloxacin] Allergy (Verified 08/31/18 13:01) Hives warfarin [From Coumadin] Allergy (Verified 08/31/18 13:01) Other torsemide [From Demadex] Adverse Reaction (Intermediate, Verified 08/31/18 13:01) Rash Medications to take at Discharge Multivitamins,Therapeutic [Multivitamin] 1 tab PO DAILY 11/16/15 albuterol sulfate HFA 90 mcg/actuation aerosol inhaler 2 puff INHALATION Q6H PRN 09/10/17 pravastatin 40 mg tablet 40 mg PO QHS tab 09/11/17 fluticasone 50 mcg/actuation nasal spray,suspension 2 spray INTRANASAL QDAY PRN 01/20/18 magnesium 250 mg tablet 400 mg PO QODAY tab 06/17/18 Citalopram Hydrobromide [Celexa] 20 mg PO DAILY 06/18/18 Brimonidine 0.15% [Alphagan P 0.15%] 1 drp EACH EYE BID 06/19/18 Lubiprostone [Amitiza] 8 mcg PO QHS PRN 06/21/18 Levothyroxine [Synthroid] 88 mcg PO DAILY 06/22/18 Metolazone [Zaroxolyn] 5 mg PO SUWE 06/22/18 Polyethylene Glycol 3350 [Miralax] 17 gm PO QHS PRN 06/23/18 Fluticasone/Salmeterol [Fluticasone-Salmeterol 232-14] 1 puff IH 06,1999 #1 inhaler 07/14/18 Furosemide [Lasix] 20 mg PO BID #60 tab 07/14/18 Guaifenesin Dm [Robitussin Dm] 5 ml PO Q6H PRN PRN udc 07/14/18 Hydrocortisone [Cortef] 10 mg PO BREAKFAST #30 tab 07/14/18 diphenhydramine 25 mg capsule 25 mg PO Q6H PRN cap 07/15/18 gabapentin 100 mg capsule 100 mg PO QHS PRN cap 07/15/18 carvedilol 25 mg tablet 25 mg PO BID #60 tab 08/28/18 Acetaminophen [Tylenol] 1,000 mg PO Q8 PRN 08/31/18 Guaifenesin [Mucinex] 600 mg PO BID PRN 08/31/18 Hydrocortisone [Cortef] 2.5 mg PO DINNER 08/31/18 Nutritional Supplement [Ever - ORANGE FLAVOR] 1 packet PO DAILY 08/31/18 Albuterol Aerosols [Ventolin Aerosols] 2.5 mg INHALATION Q6HWA.RT vial.neb. 09/03/18 Amox/Clavulanate Tablet [Augmentin Tablet] 875 mg PO BID #20 tablet 09/03/18 Budesonide Aerosol [Pulmicort Respules] 0.5 mg INHALATION Q12H.RT ampul.neb. 09/03/18 Hydrocortisone [Cortef] 2.5 mg PO DINNER tablet 09/03/18 Hydrocortisone [Cortef] 7.5 mg PO DAILY@0800 tablet 09/03/18 Linezolid [Zyvox] 600 mg PO BID #20 tablet 09/03/18 Oxycodone HCl/Acetaminophen [Percocet 5/325] 1 tab PO 4X/DAY PRN PRN 7 Days #30 tab 09/03/18 proMETHazine tablet [Phenergan tablet] 25 mg PO 4X/DAY PRN PRN #30 tab 09/03/18 The following prescriptions were given: Oxycodone HCl/Acetaminophen [Percocet 5/325] 1 tab PO 4X/DAY PRN PRN 7 Days #30 tab PRN Reason: Pain proMETHazine tablet [Phenergan tablet] 25 mg PO 4X/DAY PRN PRN #30 tab PRN Reason: NAUSEA/VOMITING Amox/Clavulanate Tablet [Augmentin Tablet] 875 mg PO BID #20 tablet Linezolid [Zyvox] 600 mg PO BID #20 tablet Primary Care Physician: Minerva Martin MD [Primary Care Provider] - Test Results: Test results from this visit will be discussed in further detail at your follow-up appointment, if applicable. Please Follow Up With: Jalil Ferreira MD When: friday09/07/18 at [facility] at 830am. call [phone] if questions. Proposed Discharge Date: 09/03/18
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
--- NOTE | 2018-09-03 12:43 | CASEMGMT ---
Addendum entered by Apolinar Carlos 09/03/18 12:47: Call received from [facility]. Zyvox approved, does not need prior authorization, and copay is $67.00. Pt ok to dc from CM standpoint. Kelsey DURBINM Original Note: RN CM Note: Per Dr. Rodriguez, pt will go home on Zyvoxx po. Call to [facility] to give RN CM # if medication requires a prior authorization. [facility] nurse updated not to dc patient until medication has been approved through pharmacy. Kelsey ALMANZA RN ACM
== END 2018-09-03 13:40 | disposition home or self-care (01) | DRG 577 ==
LOC: SDC 09-02 14:48 → MS2 09-02 14:48
PROVIDERS: Family Medicine; Admitting Provider Surgery; Family Provider Internal Medicine; PCP Internal Medicine; Referring Provider Surgery; Visit Provider Surgery
PROC: 0HRKX74 Replacement of Right Lower Leg Skin with Autologous Tissue Substitute, Partial Thickness, External Approach (ICD-10-PCS; principal; 2018-09-01 11:00)
DX: S80.01XA Contusion of right knee, initial encounter (principal); I50.22 Chronic systolic (congestive) heart failure; E27.40 Unspecified adrenocortical insufficiency; L97.819 Non-pressure chronic ulcer of other part of right lower leg with unspecified severity; V89.2XXA Person injured in unspecified motor-vehicle accident, traffic, initial encounter; Z96.653 Presence of artificial knee joint, bilateral; I11.0 Hypertensive heart disease with heart failure; E03.9 Hypothyroidism, unspecified; I27.20 Pulmonary hypertension, unspecified; G47.33 Obstructive sleep apnea (adult) (pediatric); Z95.3 Presence of xenogenic heart valve; Z95.810 Presence of automatic (implantable) cardiac defibrillator; Z96.643 Presence of artificial hip joint, bilateral; E78.5 Hyperlipidemia, unspecified; N28.9 Disorder of kidney and ureter, unspecified; I25.10 Atherosclerotic heart disease of native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 without angina pectoris; I25.5 Ischemic cardiomyopathy; F32.9 Major depressive disorder, single episode, unspecified; I48.0 Paroxysmal atrial fibrillation
CPT/HCPCS: 11042; 11045; 36415; 80048; 80053; 80202; 84134; 85027; 87070; 87075; 87102; 87205; 87206; 88304; 88305; 94640; 97162; 97166; 97530; 97802; J7050; J7120; A4216

== ENCOUNTER 2018-09-04 15:56 | Outpatient (RCR) | payer MEDICARE, SELFPAY ==
[2018-09-01 15:47] VITALS: BMI 25.0
== END 2018-09-10 23:59 ==
LOC: HHLAB 15:56
PROVIDERS: Family Provider Internal Medicine; PCP Internal Medicine; Referring Provider Internal Medicine Infectious Disease; Visit Provider Internal Medicine Infectious Disease
DX: R19.7 Diarrhea, unspecified (principal); Z79.2 Long term (current) use of antibiotics
CPT/HCPCS: 87493

== ENCOUNTER 2018-09-07 09:32 | Observation (INO) | payer MEDICARE, SELFPAY ==
[2018-09-07] VITALS (7 sets, daily range): BP systolic 88–109; BP diastolic 56–78; PULSE 87–102; RESP 16–24; TEMP 36.3–36.4; O2SAT 93–98; BMI 25.0; BMI 24.2; BMI 24.7
--- NOTE | 2018-09-07 10:01 | ED.VISSUMM ---
- ER Visit Summary Date of Service: 09/07/18 Chief Complaint: Generalized weakness and diarrhea History of Present Illness: The patient is a 78 F 3 of prior stroke, CHF, renal insufficiency, anemia, A. fib and a recent right knee skin grafting done by Dr. Ferreira. Patient was on antibiotics developed diarrhea and tested positive for C. difficile. States she had a significant amount of diarrhea over the weekend is only had 3 episodes in last 24 hours. Currently she is on oral vancomycin. She denies any nausea, vomiting or abdominal pain. No fever. She just states she feels overall weak. She saw Dr. Ferreira today in the office who felt she was dehydrated and wanted her seen in the ER. Physical Examination: Elderly female. Vital signs initial blood pressure 8/56. Hypotensive. Afebrile. Pulse ox 93% on room air no hypoxia. HEENT exam dry mixed memories. Neck nontender. Lungs clear to auscultation bilaterally. Heart regular rhythm no murmur. Abdomen is soft, nontender, nondistended with normal bowel sounds no peritoneal signs. No hernias or masses. No signs of obstruction. She is moving all 4 extremities. Calves are nontender without edema. She is an Henry wrap on her right knee from her prior skin graft. Dorsi plantar flexion are intact. 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 Back nontender. Neurologically she is awake alert with no focal motor deficits. Test Results: CBC shows white count of 8. Hemoglobin 11.9 her baseline is normally around 9. No bands. Electrolytes unremarkable. Creatinine is elevated 1.83 which is around her baseline renal insufficiency. BMP shows Emergency Department Course and Treatment: Patient treated with 1 L normal saline. Patient was treated with a liter normal saline her blood pressures below 100 in the mid to high 90s. She feels very weak. I think it is in her best interest to be admitted for further oral hydration and IV hydration. Treatment Plan: I have the hospitalist on page for admission Disposition: Admission Impression: Acute diarrhea secondary to recently diagnosed C. difficile Dehydration Hypotension Acute on chronic renal insufficiency This note was generated with KoolSpanation software. It may contain incorrect words, spelling, and punctuation that were not noted in review of the chart prior to signing ED Disposition - Plan for ED Patient: Chief Complaint: Weakness Referrals: Minerva Martin MD [Primary Care Provider] -
--- NOTE | 2018-09-07 10:04 | ED.DCSUM_ITS ---
- ER Visit Summary Date of Service: 09/07/18 Chief Complaint: Generalized weakness and diarrhea History of Present Illness: The patient is a 78 F 3 of prior stroke, CHF, renal insufficiency, anemia, A. fib and a recent right knee skin grafting done by Dr. Ferreira. Patient was on antibiotics developed diarrhea and tested positive for C. difficile. States she had a significant amount of diarrhea over the weekend is only had 3 episodes in last 24 hours. Currently she is on oral vancomycin. She denies any nausea, vomiting or abdominal pain. No fever. She just states she feels overall weak. She saw Dr. Ferreira today in the office who felt she was dehydrated and wanted her seen in the ER. Physical Examination: Elderly female. Vital signs initial blood pressure 8/56. Hypotensive. Afebrile. Pulse ox 93% on room air no hypoxia. HEENT exam dry mixed memories. Neck nontender. Lungs clear to auscultation bilaterally. Heart regular rhythm no murmur. Abdomen is soft, nontender, nondistended with normal bowel sounds no peritoneal signs. No hernias or masses. No signs of obstruction. She is moving all 4 extremities. Calves are nontender without edema. She is an Henry wrap on her right knee from her prior skin graft. Dorsi plantar flexion are intact. 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 Back nontender. Neurologically she is awake alert with no focal motor deficits. Test Results: CBC shows white count of 8. Hemoglobin 11.9 her baseline is normally around 9. No bands. Electrolytes unremarkable. Creatinine is elevated 1.83 which is around her baseline renal insufficiency. BMP shows Emergency Department Course and Treatment: Patient treated with 1 L normal saline. Patient was treated with a liter normal saline her blood pressures below 100 in the mid to high 90s. She feels very weak. I think it is in her best interest to be admitted for further oral hydration and IV hydration. Treatment Plan: I have the hospitalist on page for admission Disposition: Admission Impression: Acute diarrhea secondary to recently diagnosed C. difficile Dehydration Hypotension Acute on chronic renal insufficiency This note was generated with Planeta.ruation software. It may contain incorrect words, spelling, and punctuation that were not noted in review of the chart prior to signing ED Disposition - Plan for ED Patient: Chief Complaint: Weakness Referrals: Minerva Martin MD [Primary Care Provider] -
[2018-09-07 10:20] LABS: Absolute Lymphocyte Count 0.99 X10^3/ul (0.83-4.51); Absolute Neutrophil Count 6.5 X10^3/uL (2.0-7.7); Basophil# 0.04 X10^3/uL; Basophil% 0.5 % (0-1); Eosinophil# 0.57 X10^3/uL; Eosinophils% 6.6 % (0-5); Hematocrit 37.9 % (37-47); Hemoglobin 11.9 g/dl (12.0-15.0); Lymphocyte # 0.99 X10^3/ul (4.0); Lymphocyte % 11.4 % (19-41); Mean Corp Hgb Conc 31.4 g/gl (32-36); Mean Corpuscular Hgb 32.2 pg (27.0-32.0); Mean Corpuscular Volume 102.4 fL (81-99); Monocyte# 0.58 X10^3/uL; Monocyte% 6.7 % (0-10); Neutrophil # 6.47 X10^3/uL (2.7-7.7); Neutrophil % 74.5 % (47-70); Platelet Count 247 K/mm3 (150-450); RBC Distribution Width CV 17.3 % (11.6-14.6); RBC Distribution Width SD 64.2 fl (35.1-43.9); White Blood Count 8.7 K/mm3 (4.4-11.0)
[2018-09-07 10:24] LABS: POSITIVE COUNT NO; POSITIVE DIFFERENTIAL NO; POSITIVE MORPHOLOGY NO
[2018-09-07] MEDS: 0.9% Normal Saline 1,000 ML 1000 ML IV (10:24)
[2018-09-07 10:51] LABS: Anion Gap 12 (5-15); BUN 22 mg/dL (7-18); Calcium,Total 9.1 mg/dL (8.5-10.1); Chloride 98 mmol/L (98-107); Creatinine, Serum 1.83 mg/dL (0.55-1.02); EST Glomerular Filtration Rate 29 mL/min (>60); Est Glom Filt Rate - Afr Amer 35 mL/min (>60); Estimated Creatinine Clearance 28.28 ml/min; Glucose 96 mg/dL (74-106); Potassium 4.3 mmol/L (3.5-5.1); Sodium Level 136 mmol/L (136-145)
[2018-09-07] MEDS: 0.9% Normal Saline 1,000 ML 999 ML IV (11:35)
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
--- NOTE | 2018-09-07 15:10 | CASEMGMT ---
JOSSE CM Readmission Note Previous admission dc date: 09/03/18 DC Hospital course: treatment for nonhealing hematoma ulcers R knee including surgical excisional debridement nonhealing hematoma and reconstruction. DC disposition: home on po antibiotics Current Admission: 09/07/18 Presentation: Diarrhea, positive for C.Difficile. IVF, oral vancomycin. Living Arrangements: Lives in 2 story home with , 1st floor set up, drives. Pt has tub bench, cane, walker, CPAP. DC PLAN: undetermined. PT/OT evaluations pending. Pt has had [facility] in past. Kelsey GIBBSN RN ACM
[2018-09-07] MEDS: Carvedilol 25 MG Tablet PO (17:03)
[2018-09-07] MEDS: 0.9% Normal Saline 1,000 ML 100 ML IV (17:03)
[2018-09-07] MEDS: Hydrocortisone 10 MG Tablet 2.5 MG PO (17:03)
[2018-09-07] MEDS: HYDROcodone Bitartrate/Apap 5/325 Tablet PO (17:07)
[2018-09-07 18:46] LABS: Hemoglobin A1c 5.9 % (4.2-6.3)
[2018-09-07] MEDS: Pravastatin 40 MG Tablet PO (21:01)
[2018-09-07] MEDS: Linezolid 600 MG Tablet PO (21:01)
[2018-09-07] MEDS: BRIMONIDINE 0.15% 5 ML Bottle 1 DRP EACH EYE (21:01)
[2018-09-07] MEDS: Heparin Injection (Vial) 5,000 UNIT/ML VIAL 5000 UNIT SC (21:01)
[2018-09-07] MEDS: Gabapentin 100 MG Capsule PO (21:01)
[2018-09-07] MEDS: DiphenhydrAMINE 25 MG Capsule PO (22:23)
[2018-09-08] VITALS (7 sets, daily range): BP systolic 105–127; BP diastolic 64–72; PULSE 93–114; RESP 16–22; TEMP 36.3–37.1; O2SAT 92–96
[2018-09-08] MEDS: 0.9% Normal Saline 1,000 ML 100 ML IV ×3 (00:44→20:26)
[2018-09-08 05:24] LABS: Absolute Lymphocyte Count 1.33 X10^3/ul (0.83-4.51); Absolute Neutrophil Count 4.1 X10^3/uL (2.0-7.7); Basophil# 0.03 X10^3/uL; Basophil% 0.5 % (0-1); Eosinophil# 0.52 X10^3/uL; Eosinophils% 7.8 % (0-5); Hemoglobin 11.1 g/dl (12.0-15.0); Lymphocyte # 1.33 X10^3/ul (4.0); Mean Corp Hgb Conc 31.7 g/gl (32-36); Mean Corpuscular Hgb 32.7 pg (27.0-32.0); Mean Corpuscular Volume 103.2 fL (81-99); Mean Platelet Vol. 9.4 fl (6.2-12.0); Neutrophil # 4.14 X10^3/uL (2.7-7.7); Neutrophil % 62.4 % (47-70); Platelet Count 190 K/mm3 (150-450); RBC Distribution Width CV 17.5 % (11.6-14.6); RBC Distribution Width SD 63.7 fl (35.1-43.9); Red Blood Count 3.39 M/mm3 (4.2-5.4); White Blood Count 6.6 K/mm3 (4.4-11.0)
[2018-09-08 05:28] LABS: POSITIVE COUNT NO; POSITIVE DIFFERENTIAL NO; POSITIVE MORPHOLOGY NO
[2018-09-08 05:35] LABS: Anion Gap 9 (5-15); BUN 21 mg/dL (7-18); BUN/Creat Ratio 15.8 RATIO (10-20); Calcium,Total 8.5 mg/dL (8.5-10.1); Chloride 106 mmol/L (98-107); Creatinine, Serum 1.33 mg/dL (0.55-1.02); EST Glomerular Filtration Rate 41 mL/min (>60); Est Glom Filt Rate - Afr Amer 50 mL/min (>60); Estimated Creatinine Clearance 38.91 ml/min; Glucose 84 mg/dL (74-106); Sodium Level 138 mmol/L (136-145)
[2018-09-08] MEDS: HYDROcodone Bitartrate/Apap 5/325 Tablet PO ×2 (06:01→20:23)
[2018-09-08] MEDS: Levothyroxine 88 MCG Tablet PO (06:02)
[2018-09-08] MEDS: Budesonide Respules 0.5 MG/2 ML AMPUL.NEB. INHALATION ×2 (06:51→19:40)
[2018-09-08] MEDS: Albuterol 2.5 MG/3 ML VIAL.NEB. INHALATION ×2 (06:51→19:40)
[2018-09-08] MEDS: Hydrocortisone 10 MG Tablet 5 MG PO (08:06)
[2018-09-08] MEDS: Carvedilol 25 MG Tablet PO ×2 (08:06→17:16)
[2018-09-08] MEDS: Multivitamins,Therapeutic Tablet 1 TABLET PO (08:07)
[2018-09-08] MEDS: Citalopram 20 MG Tablet PO (08:23)
[2018-09-08] MEDS: Magnesium Oxide 400 MG Tablet PO (08:23)
[2018-09-08] MEDS: Linezolid 600 MG Tablet PO ×2 (08:24→22:24)
[2018-09-08] MEDS: BRIMONIDINE 0.15% 5 ML Bottle 1 DRP EACH EYE ×2 (08:25→22:25)
[2018-09-08] MEDS: Mupirocin Ointment 22gm Tube 1 APPLIC TOPICAL (08:26)
[2018-09-08] MEDS: Heparin Injection (Vial) 5,000 UNIT/ML VIAL 5000 UNIT SC ×2 (08:41→22:24)
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
--- NOTE | 2018-09-08 10:35 | CASEMGMT ---
Social Work Note SW printed HCPOA and LW and will place on pt's chart. Clemencia Chisholm ELECTRICAL PROJECT MANAGER, RESTAURANT DELIVERY DRIVER
--- NOTE | 2018-09-08 10:41 | DCINST_ITS ---
- Discharge Diagnoses Current Active Problems: Current Active and Chronic Problems (Last Reviewed 07/15/18 @ 15:47 by Peace Maldonado) (1) Acute Clostridium Difficile Diarrhea w/ Associated dehydration, hypotension, SAY as noted #2 (2) Acute kidney injury on CKD stage III (3) Recent nonhealing hematoma right knee status post operative debridement and skin grafting with prior Enterobacter, MRSA, anaerobic gram-positive cocci infection (4) CAD (5) Chronic Systolic CHF/Ischemic Cardiomyopathy (6) PAF (7) Prior CVA (8) Hypertension (9) Hyperlipidemia (10) Restrictive/COPD (11) IBS (12) Pre-diabetes mellitus (13) Adrenal Insufficiency (14) Chronic Anemia (15) Anxiety and Depression (16) Hypothyroidism You will use the following diet at home:: Cardiac - ADA/Cardiac diet (pre- diabetes history) Your food should be the consistency of: Regular Your liquids should be the consistency of: Regular/Thin Discharge Activity: - - Avoid aggressive activity or public places, i.e. restaurants, until resolution of diarrhea. May resume sexual activity in: - - Avoid sexual intercourse until complete resolution of diarrhea and suggest completion of vancomycin. Weight Bearing Status: Weight bearing as tolerated Keep extremity elevated above heart level: Right Leg Call your doctor if your incision/area has: Continuous Slow Oozing, Sudden Increased Bleeding, Increased Pain/ Swelling, Increased Redness, Foul Smelling Discharge, Swelling at the incision site Call your doctor if you observe: Fever of 101 or Higher, Inability to urinate, Inability to have a bowel movement, Shortness of breath, Dizziness, Fainting spells, Chest pain, Uncontrolled pain, - - Recurrent severe diarrhea. If when you complete your vancomycin you start having recurrent diarrhea immediately contact your physician. Instructions: Clostridium difficile Infection, Discharge Instructions for Acute Kidney Injury Additional Instructions: Per discusison with Infectious Disease (ID), we will continued oral vancomycin with additionally, 10-day course of oral vancomycin from completion date of linezolid (completion date: 09/23/18 last dosing). Please have repeat CBC, BMP with your PCP at follow-up in 3-5 days. Allergies/Adverse Reactions: Allergies levofloxacin [Levofloxacin] Allergy (Verified 09/07/18 08:42) Hives warfarin [From Coumadin] Allergy (Verified 09/07/18 08:42) Other torsemide [From Demadex] Adverse Reaction (Intermediate, Verified 09/07/18 08:42) Rash Medications to take at Discharge Multivitamins,Therapeutic [Multivitamin] 1 tab PO DAILY 11/16/15 albuterol sulfate HFA 90 mcg/actuation aerosol inhaler 2 puff INHALATION Q6H PRN 09/10/17 pravastatin 40 mg tablet 40 mg PO QHS tab 09/11/17 fluticasone 50 mcg/actuation nasal spray,suspension 2 spray INTRANASAL QDAY PRN 01/20/18 magnesium 250 mg tablet 400 mg PO QODAY tab 06/17/18 Citalopram Hydrobromide [Celexa] 20 mg PO DAILY 06/18/18 Brimonidine 0.15% [Alphagan P 0.15%] 1 drp EACH EYE BID 06/19/18 Lubiprostone [Amitiza] 8 mcg PO QHS PRN 06/21/18 Levothyroxine [Synthroid] 88 mcg PO DAILY 06/22/18 Metolazone [Zaroxolyn] 5 mg PO SUWE 06/22/18 Polyethylene Glycol 3350 [Miralax] 17 gm PO QHS PRN 06/23/18 Furosemide [Lasix] 20 mg PO BID #60 tab 07/14/18 Guaifenesin Dm [Robitussin Dm] 5 ml PO Q6H PRN PRN udc 07/14/18 diphenhydramine 25 mg capsule 25 mg PO Q6H PRN cap 07/15/18 gabapentin 100 mg capsule 100 mg PO QHS PRN cap 07/15/18 carvedilol 25 mg tablet 25 mg PO BID #60 tab 08/28/18 Acetaminophen [Tylenol] 1,000 mg PO Q8 PRN 08/31/18 Guaifenesin [Mucinex] 600 mg PO BID PRN 08/31/18 Hydrocortisone [Cortef] 2.5 mg PO DINNER 08/31/18 Nutritional Supplement [Ever - [place]LAVOR] 1 packet PO DAILY 08/31/18 Albuterol Aerosols [Ventolin Aerosols] 2.5 mg INHALATION Q6HWA.RT vial.neb. 09/03/18 Budesonide Aerosol [Pulmicort Respules] 0.5 mg INHALATION Q12H.RT ampul.neb. 09/03/18 Linezolid [Zyvox] 600 mg PO BID #20 tab 09/03/18 Oxycodone HCl/Acetaminophen [Percocet 5/325] 1 tab PO 4X/DAY PRN PRN 7 Days #30 tab 09/03/18 proMETHazine tablet [Phenergan tablet] 25 mg PO 4X/DAY PRN PRN #30 tab 09/03/18 Aspirin [Aspirin, Baby] 81 mg PO DAILY@0800 09/07/18 Hydrocortisone [Cortef] 5 mg PO BREAKFAST 09/07/18 mupirocin 2 % topical ointment 1 applic TOPICAL DAILY #3 tube 09/07/18 Vancomycin [Vancocin] 125 mg PO Q6H 16 Days #64 cap 09/08/18 The following prescriptions were given: Vancomycin [Vancocin] 125 mg PO Q6H 16 Days #64 cap Primary Care Physician: Minerva Martin MD [Primary Care Provider] - Please follow up with your Primary Care Physician in: Follow-up within 3-5 days. Test Results: Test results from this visit will be discussed in further detail at your follow- up appointment, if applicable. Please Follow Up With: Alejandro Rodriguez MD When: Please contact Dr. Rodriguez (infectious disease) if any concerns/questions Proposed Discharge Date: 09/09/18
--- NOTE | 2018-09-08 11:57 | NURSING ---
wound photo: Lower Abdomen.
--- NOTE | 2018-09-08 12:06 | NURSING ---
wound photo: Right Knee
--- NOTE | 2018-09-08 13:46 | CASEMGMT ---
RN CM Note: Intro role of CM to patient and her . [facility] has been active with pt and will be resumed on dc. Call to Peace [facility] to update on planned dc tomorrow. Call to Dr. Joaquin requesting dressing change and F/U with Dr. Ferreira be added to dc instructions. Plan is for dc home tomorrow. Kelsey ALMANZA RN ACM
[2018-09-08] MEDS: Acetaminophen 325 MG Tablet 650 MG PO (13:50)
--- NOTE | 2018-09-08 15:54 | CHAPLAIN ---
Type of Pastoral Visit _x__ Initial Visit ___ Follow-up Visit ___ On-call Visit ___ General Patient Visit ___ Spiritual Assessment ___ Family Conference ___ Bereavement ___ Rapid Response ___ Code Blue ___ Other (describe below) Pastoral Care Referral From _x__ Patient ___ Family ___ Nurse ___ Physician ___ Outdoor Emergency Care Technician ___ [employer] Sawyer ___ Other (describe below) Sacrament/Intervention _x__ Active listening ___ Anointing ___ Jainism ___ Bereavement ___ Communion _x__ Shelly exploration ___ ___ Life review _x__ Prayer ___ Reconciliation ___ Sacrament of Sick _x__ Supportive presence ___ Wedding ___ Other (describe below) Pastoral Comments
[2018-09-08] MEDS: Hydrocortisone 10 MG Tablet 2.5 MG PO (17:16)
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
[2018-09-08] MEDS: Pravastatin 40 MG Tablet PO (22:24)
[2018-09-09] MEDS: DiphenhydrAMINE 25 MG Capsule PO (00:07)
[2018-09-09 02:33] VITALS: BP 115/62; PULSE 100; RESP 16; TEMP 36.6; O2SAT 95
[2018-09-09] MEDS: Levothyroxine 88 MCG Tablet PO (05:33)
[2018-09-09] MEDS: Acetaminophen 325 MG Tablet 650 MG PO (05:36)
[2018-09-09] MEDS: 0.9% Normal Saline 1,000 ML 100 ML IV (05:37)
[2018-09-09] MEDS: 0.9% NaCl Peripheral Flush Adult/Peds IV (06:47)
[2018-09-09] MEDS: Ondansetron 4 MG/2 ML Vial IV (06:47)
[2018-09-09 07:01] LABS: Absolute Lymphocyte Count 1.28 X10^3/ul (0.83-4.51); Absolute Neutrophil Count 4.9 X10^3/uL (2.0-7.7); Basophil# 0.03 X10^3/uL; Basophil% 0.4 % (0-1); Eosinophil# 0.44 X10^3/uL; Eosinophils% 5.9 % (0-5); Hemoglobin 10.7 g/dl (12.0-15.0); Lymphocyte # 1.28 X10^3/ul (4.0); Lymphocyte % 17.3 % (19-41); Mean Corp Hgb Conc 31.5 g/gl (32-36); Mean Corpuscular Hgb 32.3 pg (27.0-32.0); Mean Corpuscular Volume 102.7 fL (81-99); Mean Platelet Vol. 8.9 fl (6.2-12.0); Monocyte% 9.5 % (0-10); Neutrophil # 4.94 X10^3/uL (2.7-7.7); Neutrophil % 66.8 % (47-70); Platelet Count 194 K/mm3 (150-450); RBC Distribution Width CV 17.8 % (11.6-14.6); RBC Distribution Width SD 63.4 fl (35.1-43.9); Red Blood Count 3.31 M/mm3 (4.2-5.4); White Blood Count 7.4 K/mm3 (4.4-11.0)
[2018-09-09 07:05] LABS: POSITIVE COUNT NO; POSITIVE DIFFERENTIAL NO; POSITIVE MORPHOLOGY NO
[2018-09-09 07:08] VITALS: PULSE 113; RESP 18
[2018-09-09] MEDS: Budesonide Respules 0.5 MG/2 ML AMPUL.NEB. INHALATION (07:08)
[2018-09-09] MEDS: Albuterol 2.5 MG/3 ML VIAL.NEB. INHALATION (07:08)
[2018-09-09 07:36] LABS: Anion Gap 10 (5-15); BUN 19 mg/dL (7-18); BUN/Creat Ratio 20.4 RATIO (10-20); Calcium,Total 8.3 mg/dL (8.5-10.1); Chloride 110 mmol/L (98-107); Creatinine, Serum 0.93 mg/dL (0.55-1.02); EST Glomerular Filtration Rate 62 mL/min (>60); Est Glom Filt Rate - Afr Amer 75 mL/min (>60); Estimated Creatinine Clearance 55.65 ml/min; Glucose 90 mg/dL (74-106); Potassium 4.1 mmol/L (3.5-5.1); Sodium Level 138 mmol/L (136-145)
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
[2018-09-09] MEDS: Mupirocin Ointment 22gm Tube 1 APPLIC TOPICAL (10:01)
[2018-09-09] MEDS: BRIMONIDINE 0.15% 5 ML Bottle 1 DRP EACH EYE (10:02)
[2018-09-09] MEDS: Citalopram 20 MG Tablet PO (10:11)
[2018-09-09] MEDS: Multivitamins,Therapeutic Tablet 1 TABLET PO (10:12)
[2018-09-09] MEDS: Hydrocortisone 10 MG Tablet 5 MG PO (10:12)
[2018-09-09] MEDS: Carvedilol 25 MG Tablet PO (10:12)
[2018-09-09] MEDS: Linezolid 600 MG Tablet PO (10:14)
[2018-09-09 10:30] VITALS: BP 106/71; PULSE 115; RESP 20; TEMP 36.4; O2SAT 94
== END 2018-09-09 10:50 | disposition home health service (06) ==
LOC: ED 10:26 → MS2 14:10
PROVIDERS: Admitting Provider Family Medicine; Emergency Provider Emergency Medicine; Family Provider Internal Medicine; PCP Internal Medicine; Visit Provider Family Medicine
DX: A04.72 Enterocolitis due to Clostridium difficile, not specified as recurrent (principal); N17.9 Acute kidney failure, unspecified; I13.0 Hypertensive heart and chronic kidney disease with heart failure and stage 1 through stage 4 chronic kidney disease, or unspecified chronic kidney disease; I50.22 Chronic systolic (congestive) heart failure; N18.3 Chronic kidney disease, stage 3 (moderate); E03.9 Hypothyroidism, unspecified; J44.9 Chronic obstructive pulmonary disease, unspecified; E78.5 Hyperlipidemia, unspecified; I48.0 Paroxysmal atrial fibrillation; E86.0 Dehydration; F32.9 Major depressive disorder, single episode, unspecified; R73.03 Prediabetes; G47.33 Obstructive sleep apnea (adult) (pediatric); Z95.2 Presence of prosthetic heart valve; I27.20 Pulmonary hypertension, unspecified; Z95.810 Presence of automatic (implantable) cardiac defibrillator; Z86.14 Personal history of Methicillin resistant Staphylococcus aureus infection; Z79.899 Other long term (current) drug therapy; Z79.82 Long term (current) use of aspirin; Z86.718 Personal history of other venous thrombosis and embolism; Z86.73 Personal history of transient ischemic attack (TIA), and cerebral infarction without residual deficits; F41.9 Anxiety disorder, unspecified; D64.9 Anemia, unspecified; K58.9 Irritable bowel syndrome, unspecified; S80.01XD Contusion of right knee, subsequent encounter; V49.9XXD Car occupant (driver) (passenger) injured in unspecified traffic accident, subsequent encounter; Z79.2 Long term (current) use of antibiotics; R19.7 Diarrhea, unspecified
CPT/HCPCS: 36415; 80048; 83036; 83735; 85025; 87493; 94640; 96361; 96372; 96374; 97802; 99218; 99283; J7030; J7040; A4216; G0378; J2405

== ENCOUNTER 2018-09-21 09:20 | Outpatient (RCR) | payer MEDICARE, SELFPAY ==
[2018-09-11 01:31] VITALS: BP 105/67; PULSE 94; RESP 22; TEMP 35.9
[2018-09-11 01:56] VITALS: BMI 25.0
[2018-09-21 09:35] VITALS: BP 96/47; PULSE 106; RESP 18; TEMP 36.2; BMI 25.0
--- NOTE | 2018-09-21 09:43 | WC ---
RIGHT LOWER ABD INCISION WELL APPROXIMATED AND SUTURES INTACT.
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
== END 2018-10-08 23:59 ==
LOC: WC 09:20
PROVIDERS: Family Provider Internal Medicine; PCP Internal Medicine; Referring Provider Surgery; Visit Provider Surgery
DX: Z09 Encounter for follow-up examination after completed treatment for conditions other than malignant neoplasm (principal); Z86.14 Personal history of Methicillin resistant Staphylococcus aureus infection
CPT/HCPCS: 99214; G0463

== ENCOUNTER 2018-11-09 04:23 | Observation (INO) | payer MEDICARE, SELFPAY ==
[2018-10-15 13:19] VITALS: BMI 24.8
[2018-11-09] VITALS (19 sets, daily range): BP systolic 87–129; BP diastolic 49–100; PULSE 77–166; RESP 16–24; TEMP 36.4–37.5; O2SAT 92–98; BMI 23.3; BMI 23.9; BMI 24.0
--- NOTE | 2018-11-09 04:26 | ED.RN ---
CALLED FOR EKG PER RN REQUEST, PULLED OLD EKGS FOR
--- NOTE | 2018-11-09 04:35 | EKG12_ITS ---
Test Reason : CONFUSION Blood Pressure : / mmHG Vent. Rate : 123 BPM Atrial Rate : 113 BPM P-R Int : 000 ms QRS Dur : 134 ms QT Int : 338 ms P-R-T Axes : 000 -11 153 degrees QTc Int : 483 ms Atrial fibrillation with rapid ventricular response Left ventricular hypertrophy with QRS widening T wave abnormality, consider lateral ischemia Abnormal ECG Confirmed by ADAM TIRADO, LAUREN ([id number]), editor in chief newspaper JAMAAL SAHNI ([id number]) on 11/10/2018 1:33:03 PM Referred By: BK Confirmed By:LAUREN MEDINA MD
[2018-11-09 04:40] LABS: Bedside Glucose 168 mg/dL (70-110)
--- NOTE | 2018-11-09 04:40 | ED.VISSUMM ---
- ER Visit Summary Date of Service: 11/09/18 Chief Complaint: Generalized weakness History of Present Illness: The patient is a 78 F history of anemia, A. fib and prior stroke reportedly the patient has been thought she was weak may or may not have been confused call the squad never brought in. Patient denies any nausea, vomiting or states she has had a cough. She denies any headache or chest pain. She denies any abdominal pain or melena. No fever. Physical Examination: Older female. Awake and alert. Answering questions and following commands. Her initial blood pressure is hypotensive at 87/71 pulse ox 90% on room air she is afebrile with a oral temp at 99. She is in A. fib with a rate of about 120. HEENT exam dry mixed memories. Pupils round reactive light. Normal speech. No facial droop. Neck nontender. Lungs clear to auscultation bilaterally. Heart irregular irregular rate about 120 consistent with A. fib. Abdomen is soft and nontender normal bowel sounds no pain no signs. Chest wall nontender. Patient moving all 4 extremities. Neurovascular intact. Calves are nontender without edema or cords. Neurologically she is awake and alert. She is answering questions and following commands. Her NIH score is 0. She has normal equal symmetrical beater engineer strength. Equal and symmetrical dorsi and plantarflexion. Currently she knows day, month, year and where she has had. She has no slurred speech. Test Results: EKG shows atrial fibrillation with RVR with a rate of 123. Interventricular conduction delay. No change from prior EKG from 2018. Emergency Department Course and Treatment: Older female with transient hypotension brought in by squad. Treatment Plan: [] Disposition: [] Impression: Generalized weakness Acute hypotension Acute on chronic A. fib with RVR Anticoagulated on Eliquis This note was generated with [employer] software. It may contain incorrect words, spelling, and punctuation that were not noted in review of the chart prior to signing ED Disposition - Plan for ED Patient: Referrals: Minerva Martin MD [Primary Care Provider] -
--- NOTE | 2018-11-09 04:43 | ED.DCSUM_ITS ---
- ER Visit Summary Date of Service: 11/09/18 Chief Complaint: Generalized weakness History of Present Illness: The patient is a 78 F history of anemia, A. fib and prior stroke reportedly the patient has been thought she was weak may or may not have been confused call the squad never brought in. Patient denies any nausea, vomiting or states she has had a cough. She denies any headache or chest pain. She denies any abdominal pain or melena. No fever. Physical Examination: Older female. Awake and alert. Answering questions and following commands. Her initial blood pressure is hypotensive at 87/71 pulse ox 90% on room air she is afebrile with a oral temp at 99. She is in A. fib with a rate of about 120. HEENT exam dry mixed memories. Pupils round reactive light. Normal speech. No facial droop. Neck nontender. Lungs clear to auscultation bilaterally. Heart irregular irregular rate about 120 consistent with A. fib. Abdomen is soft and nontender normal bowel sounds no pain no signs. Chest wall nontender. Patient moving all 4 extremities. Neurovascular intact. Calves are nontender without edema or cords. Neurologically she is awake and alert. She is answering questions and following commands. Her NIH score is 0. She has normal equal symmetrical machine presser strength. Equal and symmetrical dorsi and plantarflexion. Currently she knows day, month, year and where she has had. She has no slurred speech. Test Results: EKG shows atrial fibrillation with RVR with a rate of 123. Interventricular conduction delay. No change from prior EKG from 2018. Emergency Department Course and Treatment: Older female with transient hypotension brought in by squad. Treatment Plan: [] Disposition: [] Impression: Generalized weakness Acute hypotension Acute on chronic A. fib with RVR Anticoagulated on Eliquis This note was generated with [employer] software. It may contain incorrect words, spelling, and punctuation that were not noted in review of the chart prior to signing ED Disposition - Plan for ED Patient: Referrals: Minerva Martin MD [Primary Care Provider] -
[2018-11-09] MEDS: 0.9% Normal Saline 1,000 ML 1000 ML IV (04:44)
--- NOTE | 2018-11-09 04:50 | RAD_ITS ---
HISTORY: cough, weakness, confusion, patient had difficulty following breathing instructions EXAM:XR Chest 2 Views COMPARISON: 07/07/2018 FINDINGS: EKG leads in place. Views are partly degraded by motion artifact. Poor inspiration with hypoventilation of the lung bases. Allowing for the depth of inspiration, the heart appears upper normal in size. Right basilar mild edema or atelectasis. Previously seen small bilateral pleural effusions have resolved. No pneumothorax. Left subclavian AICD pacemaker with electrode tips within the right ventricle. Previous median sternotomy. RAD/Chest PA and Lateral IMPRESSION: 1. Improving CHF and previously seen small bilateral pleural effusions have resolved. 2. Poor inspiration with residual right basilar mild edema or atelectasis. 3. Left subclavian AICD pacemaker and previous median sternotomy. at 0508 Reported and signed by: Jasson Charles MD Electronically Signed: Jasson Charles, at 5:07 EDT Tel , Service support ,
[2018-11-09 04:54] LABS: Absolute Lymphocyte Count 1.45 X10^3/ul (0.83-4.51); Absolute Neutrophil Count 10.4 X10^3/uL (2.0-7.7); Basophil# 0.02 X10^3/uL; Basophil% 0.2 % (0-1); Eosinophil# 0.21 X10^3/uL; Eosinophils% 1.6 % (0-5); Hematocrit 32.7 % (37-47); Hemoglobin 10.5 g/dl (12.0-15.0); Lymphocyte # 1.45 X10^3/ul (4.0); Lymphocyte % 11.3 % (19-41); Mean Corp Hgb Conc 32.1 g/gl (32-36); Mean Corpuscular Hgb 31.9 pg (27.0-32.0); Mean Corpuscular Volume 99.4 fL (81-99); Mean Platelet Vol. 9.5 fl (6.2-12.0); Monocyte# 0.75 X10^3/uL; Monocyte% 5.9 % (0-10); Neutrophil # 10.35 X10^3/uL (2.7-7.7); Neutrophil % 80.8 % (47-70); Platelet Count 231 K/mm3 (150-450); RBC Distribution Width CV 15.8 % (11.6-14.6); RBC Distribution Width SD 57.7 fl (35.1-43.9); Red Blood Count 3.29 M/mm3 (4.2-5.4); White Blood Count 12.8 K/mm3 (4.4-11.0)
[2018-11-09 04:58] LABS: POSITIVE COUNT NO; POSITIVE DIFFERENTIAL NO; POSITIVE MORPHOLOGY NO
[2018-11-09 05:02] LABS: Anion Gap 10 (5-15); BUN 52 mg/dL (7-18); BUN/Creat Ratio 30.6 RATIO (10-20); Calcium,Total 8.6 mg/dL (8.5-10.1); Chloride 96 mmol/L (98-107); EST Glomerular Filtration Rate 31 mL/min (>60); Est Glom Filt Rate - Afr Amer 38 mL/min (>60); Estimated Creatinine Clearance 31.47 ml/min; Glucose 158 mg/dL (74-106); Sodium Level 136 mmol/L (136-145)
[2018-11-09 05:06] LABS: Bacteria 0 SEEN /hpf (None Seen); Mucous, Urine 0 SEEN /hpf (<or=2+); Squamous Epithelial Cells - UA 0 SEEN /hpf (5-10)
[2018-11-09 05:09] LABS: Color, Urine Yellow (Yellow); Glucose, Dipstick NEGATIVE (Normal); Ketone-Dipstick Negative (Negative); Leukocyte Esterase-Dipstick Negative /ul (Negative); Nitrite-Dipstick Negative (Negative); Occult Blood-Urine 10 /ul (Negative); Protein-Dipstick 15 mg/dl (Negative); Specific Gravity, Urine 1.015 (1.002-1.030); Urine Bilirubin Dipstick Negative (Negative); Urine Clarity Clear (Clear); Urine Urobilinogen Normal (Normal)
[2018-11-09 05:22] LABS: Hyaline Cast 5-10 SEEN /lpf (0-5)
[2018-11-09 05:23] LABS: Red Blood Cells-Urine 0-5 SEEN /hpf (0-5); White Blood Cells 0 SEEN /hpf (0-5)
[2018-11-09 05:24] LABS: BNP,B-Type NATRIURETIC PEPTIDE 1060.2 pg/mL (0-100)
[2018-11-09 05:43] LABS: Lactic Acid 1.1 mmol/L (0.4-2.0)
[2018-11-09] MEDS: 0.9% Normal Saline 1,000 ML 125 ML IV (08:49)
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
[2018-11-09] MEDS: Oseltamivir Phosphate 30 MG Capsule PO (11:28)
[2018-11-09] MEDS: Benzonatate 100 MG Capsule PO ×2 (14:02→22:10)
[2018-11-09] MEDS: Acetaminophen 325 MG Tablet 650 MG PO ×2 (14:18→22:10)
[2018-11-09] MEDS: 0.9% Normal Saline 1,000 ML 100 ML IV (17:13)
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
[2018-11-09] MEDS: Albuterol 2.5 MG/3 ML VIAL.NEB. INHALATION (21:00)
[2018-11-09] MEDS: BENZOCAINE/MENTHOL 1 LOZENGE 2 LOZENGE MUCOUS MEM (21:29)
[2018-11-09] MEDS: BRIMONIDINE 0.15% 5 ML Bottle 1 DRP EACH EYE (21:50)
[2018-11-09] MEDS: Amitriptyline 25 MG Tablet 50 MG PO (21:50)
[2018-11-09] MEDS: Gabapentin 100 MG Capsule PO (21:51)
[2018-11-09] MEDS: Levothyroxine 88 MCG Tablet PO (21:51)
[2018-11-09] MEDS: APIXABAN 2.5 MG TABLET PO (21:51)
[2018-11-09] MEDS: Pravastatin 40 MG Tablet PO (21:51)
[2018-11-09] MEDS: Metoprolol Tartrate 25 MG Tablet PO ×2 (21:56→23:39)
[2018-11-09] MEDS: 0.9% NaCl Peripheral Flush Adult/Peds IV (23:37)
[2018-11-10] MEDS: 0.9% Normal Saline 1,000 ML 100 ML IV (02:11)
[2018-11-10 02:59] VITALS: PULSE 80
[2018-11-10 03:30] VITALS: BP 98/62; PULSE 80; RESP 18; TEMP 36.4; O2SAT 94
[2018-11-10 06:29] LABS: Absolute Lymphocyte Count 0.94 X10^3/ul (0.83-4.51); Absolute Neutrophil Count 8.7 X10^3/uL (2.0-7.7); Basophil# 0.02 X10^3/uL; Basophil% 0.2 % (0-1); Eosinophil# 0.14 X10^3/uL; Eosinophils% 1.3 % (0-5); Hematocrit 30.5 % (37-47); Hemoglobin 9.7 g/dl (12.0-15.0); Lymphocyte # 0.94 X10^3/ul (4.0); Lymphocyte % 8.6 % (19-41); Mean Corp Hgb Conc 31.8 g/gl (32-36); Mean Corpuscular Hgb 32.3 pg (27.0-32.0); Mean Corpuscular Volume 101.7 fL (81-99); Mean Platelet Vol. 9.6 fl (6.2-12.0); Monocyte# 1.08 X10^3/uL; Monocyte% 9.9 % (0-10); Neutrophil # 8.74 X10^3/uL (2.7-7.7); Neutrophil % 79.8 % (47-70); Platelet Count 213 K/mm3 (150-450); RBC Distribution Width CV 16.2 % (11.6-14.6); RBC Distribution Width SD 61.2 fl (35.1-43.9); White Blood Count 10.9 K/mm3 (4.4-11.0)
[2018-11-10 06:40] LABS: POSITIVE COUNT NO; POSITIVE DIFFERENTIAL NO; POSITIVE MORPHOLOGY NO
[2018-11-10 06:47] LABS: Anion Gap 9 (5-15); BUN 43 mg/dL (7-18); BUN/Creat Ratio 31.2 RATIO (10-20); Calcium,Total 8.4 mg/dL (8.5-10.1); Chloride 106 mmol/L (98-107); Creatinine, Serum 1.38 mg/dL (0.55-1.02); EST Glomerular Filtration Rate 39 mL/min (>60); Est Glom Filt Rate - Afr Amer 48 mL/min (>60); Estimated Creatinine Clearance 38.76 ml/min; Glucose 112 mg/dL (74-106); Magnesium 2.5 mg/dL (1.6-2.6); Potassium 3.8 mmol/L (3.5-5.1); Sodium Level 140 mmol/L (136-145)
[2018-11-10 07:00] VITALS: PULSE 90
[2018-11-10] MEDS: BENZOCAINE/MENTHOL 1 LOZENGE 2 LOZENGE MUCOUS MEM (07:36)
[2018-11-10] MEDS: Benzonatate 100 MG Capsule PO (07:36)
[2018-11-10] MEDS: Acetaminophen 325 MG Tablet 650 MG PO (07:36)
[2018-11-10] MEDS: Aspirin 81 MG TAB.CHEW PO (07:37)
[2018-11-10] MEDS: Hydrocortisone 10 MG Tablet PO (07:37)
[2018-11-10] MEDS: Multivitamins,Therapeutic Tablet 1 TABLET PO (07:37)
--- NOTE | 2018-11-10 08:53 | DCINST_ITS ---
- Discharge Diagnoses Current Active Problems: Current Active and Chronic Problems (Last Reviewed 07/15/18 @ 15:47 by Peace Maldonado) Hypotension (Acute) You will use the following diet at home:: Cardiac Your food should be the consistency of: Regular Your liquids should be the consistency of: Regular/Thin Discharge Activity: Return to Normal Activity Call your doctor if you observe: Fever of 101 or Higher, Shortness of breath, Dizziness, Fainting spells, Swelling in the ankles, Chest pain, Increased palpitations (irregular heartbeat) Allergies/Adverse Reactions: Allergies levofloxacin [Levofloxacin] Allergy (Verified 11/09/18 04:25) Hives warfarin [From Coumadin] Allergy (Verified 11/09/18 04:25) Other torsemide [From Demadex] Adverse Reaction (Intermediate, Verified 11/09/18 04:25) Rash Medications to take at Discharge Multivitamins,Therapeutic [Multivitamin] 1 tab PO DAILY 11/16/15 albuterol sulfate HFA 90 mcg/actuation aerosol inhaler 2 puff INHALATION BID PRN 09/10/17 pravastatin 40 mg tablet 40 mg PO QHS tab 09/11/17 fluticasone propionate 50 mcg/actuation nasal spray,suspension 2 spray INTRANASAL QDAY PRN 01/20/18 Citalopram Hydrobromide [Celexa] 20 mg PO DAILY 06/18/18 Brimonidine 0.15% [Alphagan P 0.15%] 1 drp EACH EYE BID 06/19/18 Levothyroxine [Synthroid] 88 mcg PO QHS 06/22/18 gabapentin 100 mg capsule 100 mg PO QHS cap 07/15/18 Hydrocortisone [Cortef] 10 mg PO DINNER 08/31/18 Aspirin [Aspirin, Baby] 81 mg PO DAILY@0800 09/07/18 Hydrocortisone [Cortef] 10 mg PO BREAKFAST 09/07/18 amitriptyline 50 mg tablet 50 mg PO QHS 10/15/18 apixaban 2.5 mg tablet 2.5 mg PO BID 10/15/18 magnesium 250 mg tablet 250 mg PO QODAY tab 10/15/18 Acetaminophen [Tylenol] 500 mg PO Q4H PRN PRN 11/09/18 Benzonatate [Tessalon Perle] 100 mg PO TID PRN PRN 04/01/19 Budesonide Aerosol [Pulmicort Respules] 0.5 mg INHALATION BID PRN 11/09/18 Carvedilol 25 mg PO BID 11/09/18 Furosemide [Lasix] 20 mg PO BID 11/09/18 Polyethylene Glycol 3350 [Miralax] 17 gm PO DAILY 11/09/18 Primary Care Physician: Minerva Martin MD [Primary Care Provider] - Please follow up with your Primary Care Physician in: 3-5 days Test Results: Test results from this visit will be discussed in further detail at your follow- up appointment, if applicable. Please Follow Up With: Gurdeep Huang MD When: as previously scheduled
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
[2018-11-10 09:15] VITALS: BP 95/57; PULSE 90; RESP 18; TEMP 36.9; O2SAT 92
[2018-11-10] MEDS: Polyethylene Glycol 3350 17 GM PACKET PO (09:16)
[2018-11-10] MEDS: BRIMONIDINE 0.15% 5 ML Bottle 1 DRP EACH EYE (09:16)
[2018-11-10] MEDS: APIXABAN 2.5 MG TABLET PO (09:17)
[2018-11-10] MEDS: Citalopram 20 MG Tablet PO (09:17)
--- NOTE | 2018-11-10 11:19 | PCM.PN.CARD ---
Subjectve: The patient appeared more awake and alert earlier today. She had no other new acute complaints. She noted her cough remained but was less prominent. Objective: Vital Signs Temp Pulse Resp BP Pulse Ox 98.4 F 90 18 95/57 L 92 11/10/18 09:15 11/10/18 09:15 11/10/18 09:15 11/10/18 09:15 11/10/18 09:15 Oxygen Flow Rate (L/min) 2 Oxygen Delivery Method Room Air Weight: 176 lb 2.389 oz Body Mass Index (BMI) 23.9 Finger Stick Blood Glucose 146 Intake and Output for Last 24 Hours 11/08/18 11/09/18 11/10/18 23:59 23:59 23:59 Intake Total 2531 / 1 649 / 649 Balance 2530 / 2530 649 / 649 General: Awake, Alert, Oriented x 3, Cooperative, No Acute Distress HEENT: Atraumatic, Normocephalic, PERRL, EOMI, Sclera Non Icteric Oral: Moist Mucosa Neck: Supple, Good ROM, No JVD Lungs: Clear to auscultation Cardiovascular: Irregular Rhythm, Normal S1, Normal S2 Abdomen: Bowel Sounds Present, Soft, Non Tender Extremities: No edema Psych/Mental Status: Appropriate 11/10/18 05:50: WBC 10.9, RBC 3.00 L, Hgb 9.7 L, Hct 30.5 L, MCV 101.7 H, MCH 32.3 H, MCHC 31.8 L, RDW 16.2 H, RDW Differential 61.2 H, Plt Count 213, MPV 9.6, Immature Gran % (Auto) 0.200, Neut % (Auto) 79.8 H, Lymph % (Auto) 8.6 L, [place] % (Auto) 9.9, Eos % (Auto) 1.3, Baso % (Auto) 0.2, Absolute Neuts (auto) 8.7 H, Total Counted Not Reportable 11/10/18 05:50: Sodium 140, Potassium 3.8, Chloride 106, Carbon Dioxide 25.0, Anion Gap 9, BUN 43 H, Creatinine 1.38 H, Est GFR (MDRD) Af Amer 48 L, Est GFR (MDRD) Non-Af 39 L, BUN/Creatinine Ratio 31.2 H, Glucose 112 H, Calcium 8.4 L, Magnesium 2.5 Rhythm: Atrial fibrillation Medical Necessity - Tobacco Use Smoking Status: Never smoker Assessment/Plan 1. Hypotension The patient has had her diuretics temporarily held. She has received gentle IV hydration. Her blood pressure has improved. Her creatinine level has improved. 2. Acute renal insufficiency Again, with gentle IV hydration her creatinine level has improved. 3. Cardiac dysrhythmia/atrial fibrillation-persistent He does have a history of both atrial and ventricular dysrhythmias. She remains in atrial fibrillation. She is continuing rate control therapy and 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 therapy. It was felt that in approximately 1 week she would have received adequate 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 therapy that would allow her to proceed with an attempt at synchronized biphasic DC cardioversion to regain sinus rhythm. 4. Status post ICD placement She does have an ICD in place. It has been functioning appropriately. 5. Status post mitral valve replacement She has had issues with her mitral valve apparatus. She is followed locally as well as at [facility] for this. At the present time there are no immediate plans for mitral valve intervention. 6. Cardiomyopathy: Non-CAD related She does have a history of a non-CAD related cardiomyopathy with severely diminished LV systolic function. She does need to continue medical management. At the moment her medicines will need to be adjusted based upon her current condition. 7. Chronic systolic mediated CHF Does not appear to have evidence of acute on chronic systolic mediated CHF at this time. She will need to be monitored, especially with IV volume replacement, for any obvious issues. 8. CAD She does have a history of CAD which is thought to be non-angiographically significant. She will continue risk factor evaluation and care. 9. Hyperlipidemia Again she will continue risk factor evaluation and care. Overall, at the present time, it appears that she may have been somewhat intravascularly depleted. Her medications are being adjusted. As an outpatient she will resume her low-dose diuretic therapy. However her metolazone will be placed on hold for the time being. She will continue her outpatient cardiovascular follow-up and barring unforeseen concerns continue with plans for future outpatient attempt at synchronized biphasic DC cardioversion to regain sinus rhythm. Comment: The patient's case was discussed and reviewed with the patient and Dr. Bajwa This note was generated using a voice recognition system and there may be incorrect words, spelling or punctuation that were not noted when reviewing the office note prior to saving.
== END 2018-11-10 08:52 | disposition home or self-care (01) ==
LOC: ED 07:54 → PCU 11-10 07:36
PROVIDERS: Emergency Medicine; Admitting Provider Family Medicine; Emergency Provider Emergency Medicine; Family Provider Internal Medicine; PCP Internal Medicine; Visit Provider Family Medicine
DX: I95.9 Hypotension, unspecified (principal); N17.9 Acute kidney failure, unspecified; I48.1 Persistent atrial fibrillation; I25.10 Atherosclerotic heart disease of native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 without angina pectoris; E78.5 Hyperlipidemia, unspecified; I50.22 Chronic systolic (congestive) heart failure; R73.03 Prediabetes; I27.20 Pulmonary hypertension, unspecified; I11.0 Hypertensive heart disease with heart failure; I48.0 Paroxysmal atrial fibrillation; F32.9 Major depressive disorder, single episode, unspecified; E03.9 Hypothyroidism, unspecified; G47.33 Obstructive sleep apnea (adult) (pediatric); F41.9 Anxiety disorder, unspecified; Z86.73 Personal history of transient ischemic attack (TIA), and cerebral infarction without residual deficits; Z79.899 Other long term (current) drug therapy; Z79.82 Long term (current) use of aspirin; Z95.2 Presence of prosthetic heart valve; Z86.718 Personal history of other venous thrombosis and embolism; Z95.810 Presence of automatic (implantable) cardiac defibrillator; E27.40 Unspecified adrenocortical insufficiency
CPT/HCPCS: 36415; 71046; 80048; 81001; 82962; 83605; 83735; 83880; 84484; 85025; 87633; 93005; 94640; 96360; 96361; 99218; 99285; J7030; P9612; A4216; G0378

== ENCOUNTER 2018-11-17 10:31 | Day surgery (SDC) | payer MEDICARE, SELFPAY ==
[2018-10-15 13:19] VITALS: BMI 24.8
[2018-11-09 08:12] VITALS: BMI 23.9
[2018-11-16 08:39] VITALS: BMI 24.8
[2018-11-17 11:06] LABS: Absolute Lymphocyte Count 0.87 X10^3/ul (0.83-4.51); Absolute Neutrophil Count 9.7 X10^3/uL (2.0-7.7); Basophil# 0.04 X10^3/uL; Basophil% 0.3 % (0-1); Eosinophil# 0.21 X10^3/uL; Eosinophils% 1.8 % (0-5); Hematocrit 33.1 % (37-47); Hemoglobin 10.2 g/dl (12.0-15.0); Lymphocyte # 0.87 X10^3/ul (4.0); Lymphocyte % 7.4 % (19-41); Mean Corp Hgb Conc 30.8 g/gl (32-36); Mean Corpuscular Hgb 31.5 pg (27.0-32.0); Mean Corpuscular Volume 102.2 fL (81-99); Mean Platelet Vol. 8.8 fl (6.2-12.0); Monocyte# 0.81 X10^3/uL; Monocyte% 6.9 % (0-10); Neutrophil % 82.7 % (47-70); Platelet Count 303 K/mm3 (150-450); RBC Distribution Width CV 16.6 % (11.6-14.6); RBC Distribution Width SD 61.2 fl (35.1-43.9); Red Blood Count 3.24 M/mm3 (4.2-5.4); White Blood Count 11.7 K/mm3 (4.4-11.0)
[2018-11-17 11:07] LABS: POSITIVE COUNT NO; POSITIVE DIFFERENTIAL NO; POSITIVE MORPHOLOGY NO
[2018-11-17 11:36] LABS: Anion Gap 4 (5-15); BUN 31 mg/dL (7-18); BUN/Creat Ratio 22.5 RATIO (10-20); Chloride 104 mmol/L (98-107); Creatinine, Serum 1.38 mg/dL (0.55-1.02); EST Glomerular Filtration Rate 39 mL/min (>60); Est Glom Filt Rate - Afr Amer 48 mL/min (>60); Ferritin 90 ng/mL (8-252); Glucose 99 mg/dL (74-106); Sodium Level 139 mmol/L (136-145)
--- NOTE | 2018-11-17 11:58 | PCM.OPRPT ---
Problem List (1) Atrial fibrillation Status: Acute Qualifiers: Atrial fibrillation type: persistent Qualified Code(s): I48.1 - Persistent atrial fibrillation Report of Operation Date of Procedure: 11/17/18 Pre-Operative Diagnosis: Atrial fibrillation Post-Operative Diagnosis: Atrial fibrillation Surgery/Procedure Performed:: Synchronized biphasic DC cardioversion Description of Surgical Findings:: Procedure: Synchronized Biphasic DC Cardioversion Indications: Atrial fibrillation Consent: [Per the Patient] Anesthesia: per Dr. Albarado of pulmonology and critical care medicine with etomidate 4 mg IV push total Procedure: Synchronized Biphasic DC Cardioversion: 200 J x1: Result: Sinus rhythm with PACs and occasional electronic ventricular paced to be Complications: no apparent complications This note was generated with [email or web address] software. It may contain incorrect words, spelling, and punctuation that were not noted in checking the note before signing. Type of Anesthesia:: IV Sedation Anesthesiologist: Bruno Albarado Special Medications: Etomidate 4 mg IV push total Description of Procedure: Procedure: Synchronized Biphasic DC Cardioversion Indications: Atrial fibrillation Consent: [Per the Patient] Anesthesia: per Dr. Albarado of pulmonology and critical care medicine with etomidate 4 mg IV push total Procedure: Synchronized Biphasic DC Cardioversion: 200 J x1: Result: Sinus rhythm with PACs and occasional electronic ventricular paced to be Complications: no apparent complications This note was generated with [employer] software. It may contain incorrect words, spelling, and punctuation that were not noted in checking the note before signing. - Complications None - Admit VTE Documentation VTE Present on Admission: No VTE Pharm Prophylaxis ordered?: No Reason prophylaxis not ordered:: Treatment Not Indicated - Patient on oral systemic 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 therapy
--- NOTE | 2018-11-17 12:02 | OP.PCM_ITS ---
Problem List (1) Atrial fibrillation Status: Acute Qualifiers: Atrial fibrillation type: persistent Qualified Code(s): I48.1 - Persistent atrial fibrillation Report of Operation Date of Procedure: 11/17/18 Pre-Operative Diagnosis: Atrial fibrillation Post-Operative Diagnosis: Atrial fibrillation Surgery/Procedure Performed:: Synchronized biphasic DC cardioversion Description of Surgical Findings:: Procedure: Synchronized Biphasic DC Cardioversion Indications: Atrial fibrillation Consent: [Per the Patient] Anesthesia: per Dr. Albarado of pulmonology and critical care medicine with etomidate 4 mg IV push total Procedure: Synchronized Biphasic DC Cardioversion: 200 J x1: Result: Sinus rhythm with PACs and occasional electronic ventricular paced to be Complications: no apparent complications This note was generated with [employer] software. It may contain incorrect words, spelling, and punctuation that were not noted in checking the note before signing. Type of Anesthesia:: IV Sedation Anesthesiologist: Bruno Albarado Special Medications: Etomidate 4 mg IV push total Description of Procedure: Procedure: Synchronized Biphasic DC Cardioversion Indications: Atrial fibrillation Consent: [Per the Patient] Anesthesia: per Dr. Albarado of pulmonology and critical care medicine with etomidate 4 mg IV push total Procedure: Synchronized Biphasic DC Cardioversion: 200 J x1: Result: Sinus rhythm with PACs and occasional electronic ventricular paced to be Complications: no apparent complications This note was generated with [employer] software. It may contain incorrect words, spelling, and punctuation that were not noted in checking the note before signing. - Complications None - Admit VTE Documentation VTE Present on Admission: No VTE Pharm Prophylaxis ordered?: No Reason prophylaxis not ordered:: Treatment Not Indicated - Patient on oral systemic 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 therapy
--- NOTE | 2018-11-17 12:45 | PCM.OP.PRO ---
Procedure Report Date of Procedure: 11/17/18 CONSCIOUS SEDATION REPORT DATE OF SERVICE: November 17, 2018 BRIEF HISTORY OF PRESENT ILLNESS: The patient is a 78-year-old female who presented to [facility] for an elective outpatient cardioversion due to underlying atrial fibrillation. The patient denies ever having undergone a prior cardioversion. She is currently anticoagulated on Eliquis. Her last surface echocardiogram revealed an ejection fraction of approximately 20%. She does report a known history of obstructive sleep apnea and is currently prescribed nocturnal Pap therapy. She denies any previous anesthetic complications. Medication allergies were reviewed. PHYSICAL EXAMINATION: VITAL SIGNS: Reviewed and were acceptable. GENERAL: The patient is a female, in no apparent distress, speaking in full sentences. HEENT: Normocephalic, atraumatic. Mucous membranes are moist and pink. Good mouth opening noted. Trachea is midline. CHEST: S1, S2 irregularly irregular. No murmurs, rubs or gallops were noted. LUNGS: Clear to auscultation bilaterally without appreciable wheezes, rales or rhonchi. ABDOMEN: Soft, nontender, nondistended. Positive bowel sounds. EXTREMITIES: There is no clubbing, cyanosis or edema. Baseline tremors present ASA Class: II DESCRIPTION OF PROCEDURE: After confirmation of informed consent, the patient's anesthesia plan was reviewed in detail. Etomidate was chosen. Risks and benefits were reviewed and the patient agreed to proceed. At 1136, the patient was given 4 mg of etomidate. The patient achieved an appropriate level of sedation and was given a 200 joule synchronized cardioversion by Dr. Huang at the bedside. This was successful in achieving normal sinus rhythm. The patient was monitored until 1144, at which time she reached her baseline mental status and function. The patient tolerated the procedure well. COMPLICATIONS: None ESTIMATED BLOOD LOSS: None RECOMMENDATIONS: Okay to recover in usual fashion. Code Visit 9xxxx: Other Procedure See Report - [id number]
== END 2018-11-17 13:12 | disposition home or self-care (01) ==
LOC: CLSP 10:34
PROVIDERS: Family Provider Internal Medicine; PCP Internal Medicine; Referring Provider Internal Medicine Cardiovascular Disease; Visit Provider Internal Medicine Cardiovascular Disease
DX: I48.1 Persistent atrial fibrillation (principal); I50.22 Chronic systolic (congestive) heart failure; I42.9 Cardiomyopathy, unspecified; I25.10 Atherosclerotic heart disease of native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 without angina pectoris; I95.9 Hypotension, unspecified; E78.5 Hyperlipidemia, unspecified; N28.9 Disorder of kidney and ureter, unspecified; D64.9 Anemia, unspecified; G47.33 Obstructive sleep apnea (adult) (pediatric); Z95.2 Presence of prosthetic heart valve; Z95.810 Presence of automatic (implantable) cardiac defibrillator
CPT/HCPCS: 36415; 80048; 82728; 85025; 92960; 93005; J7040

== ENCOUNTER 2019-01-18 09:20 | Outpatient (RCR) | payer MEDICARE, SELFPAY ==
[2019-01-14 13:27] VITALS: BMI 25.0
[2019-01-18 10:21] VITALS: BP 107/68; PULSE 81; RESP 18; TEMP 36.4
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
== END 2019-02-07 23:59 ==
LOC: WC 09:20
PROVIDERS: Family Provider Internal Medicine; PCP Internal Medicine; Visit Provider Surgery
DX: Z09 Encounter for follow-up examination after completed treatment for conditions other than malignant neoplasm (principal); Z86.14 Personal history of Methicillin resistant Staphylococcus aureus infection; Z96.651 Presence of right artificial knee joint
CPT/HCPCS: 99212; G0463

== ENCOUNTER 2019-04-14 22:53 | Inpatient (IN) | payer MEDICARE, SELFPAY ==
[2019-01-14 13:27] VITALS: BMI 25.0
[2019-04-14 22:58] VITALS: BP 116/84; PULSE 104; RESP 22; TEMP 36.9; O2SAT 94
[2019-04-14 23:00] VITALS: BP 116/84; PULSE 96; RESP 22; TEMP 36.9; O2SAT 93; BMI 25.9
[2019-04-15] VITALS (35 sets, daily range): BP systolic 73–114; BP diastolic 46–92; PULSE 74–94; RESP 12–28; TEMP 36.3–36.6; O2SAT 30–100; BMI 24.9; BMI 25.9
--- NOTE | 2019-04-15 00:25 | RAD_ITS ---
STUDY: X-RAY CHEST REASON FOR EXAM: Female, 79 years old. Dyspnea TECHNIQUE: Single AP portable view of the chest. COMPARISON: 11/09/2018 FINDINGS: Pacemaker is seen on the left side. The lungs are clear and expanded. There is no demonstrated pleural abnormality. Sternal cerclage wires and vascular clips are present from a prior sternotomy and coronary artery bypass graft procedure (CABG). Normal mediastinum and juana. Normal visualized pulmonary arteries. Normal visualized aortic arch and descending thoracic aorta. Normal visualized thoracic spine. Normal visualized ribs, clavicles, and shoulders. There is no demonstrated abnormality of the visualized soft tissue structures of the upper abdomen. RAD/Chest 1 View (Portable) IMPRESSION: Degenerative changes, as described above. No demonstrated acute cardiopulmonary process. Electronically Signed: Tami Rodriguez, at 0:48 EDT Tel , Service support ,
--- NOTE | 2019-04-15 00:26 | EKG12_ITS ---
Test Reason : Blood Pressure : / mmHG Vent. Rate : 096 BPM Atrial Rate : 096 BPM P-R Int : 224 ms QRS Dur : 126 ms QT Int : 406 ms P-R-T Axes : 084 -12 148 degrees QTc Int : 512 ms Sinus rhythm with 1st degree A-V block with Fusion complexes and Premature atrial complexes Non-specific intra-ventricular conduction block T wave abnormality, consider anterolateral ischemia Abnormal ECG Confirmed by OLY COTTO ([id number]), publication editor NOE RODRIGUEZ ([id number]) on 04/19/2019 2:41:11 PM Referred By: Chavez Tubbs Confirmed By:OLY COTTO
--- NOTE | 2019-04-15 00:27 | CT_ITS ---
STUDY: CTA OF THE ABDOMINAL AORTA AND BILATERAL LOWER EXTREMITIES REASON FOR EXAM: Female, 79 years old. Shortness of breath. Abdominal pain. Leg numbness RADIATION DOSAGE (If Supplied By Facility): CTDIvol = ( 17.79 ) mGy, DLP = ( 935.16 ) mGycm TECHNIQUE: Axial CT angiography multi-detector data acquisition was obtained from the to the following intravenous administration of 100 IV Isovue 370. Axial images and MIP images were reconstructed from the axial data set. Post-processing of the angiographic images was performed, with multiplanar reformation and 3D reconstruction. Individualized dose optimization techniques were used for this CT. TECHNICAL QUALITY: Good COMPARISON: None. Descriptors of Narrowing: None (0%) Mild (< 50%) Moderate (50-70%) Severe (70-90%) Subtotal/Total Occlusion (90-100%) Non-Evaluable (technically non-diagnostic FINDINGS: Abdominal aorta: No demonstrated narrowing. Celiac and superior mesenteric arteries: No demonstrated narrowing. Inferior mesenteric artery: No demonstrated narrowing. Right renal artery(arteries): No demonstrated narrowing. Left renal artery(arteries): No demonstrated narrowing. Right common iliac artery: No demonstrated narrowing. Right external iliac artery: No demonstrated narrowing. Right internal iliac artery: No demonstrated narrowing. Left common iliac artery: No demonstrated narrowing. Left external iliac artery: No demonstrated narrowing. Left internal iliac artery: No demonstrated narrowing. There is a cyst in the left kidney measures 4.3 cm. The liver, the spleen, the pancreas, gallbladder are unremarkable Adrenal glands are normal in size. An IVC filter is seen in good position. There is descending colon and sigmoid diverticulosis. CT/CTA Abdomen W/WO Contrast IMPRESSION: There is no evidence of aortic dissection or hemodynamically significant stenosis. Electronically Signed: Tami Rodriguez, at 3:26 EDT Tel , Service support ,
--- NOTE | 2019-04-15 00:27 | CT_ITS ---
STUDY: CTA CHEST REASON FOR EXAM: Female, 79 years old. Shortness of breath. RADIATION DOSAGE (If Supplied By Facility): CTDIvol = ( 17.79 ) mGy, DLP = ( 935.16 ) mGycm TECHNIQUE: The examination was performed with the intravenous administration of 100 IV Isovue 370. Post-processing of the angiographic images was performed, with multiplanar reformation and 3D reconstruction. Individualized dose optimization techniques were used for this CT. COMPARISON: None. FINDINGS: Normal enhancement of the main pulmonary artery and right and left pulmonary arteries. Normal enhancement of the bilateral peripheral pulmonary arteries. There is no demonstrated pulmonary embolism. Normal thoracic aorta and visualized great vessels. There is no demonstrated aortic dissection. There are dual chamber pacemaker electrode leads in satisfactory position. There is cardiomegaly with left ventricular enlargement. Normal mediastinum. Normal hilar regions. Normal visualized trachea and bronchi. The lungs are underexpanded. There is interstitial thickening in the lung bases may represent chronic interstitial lung disease or pulmonary edema. Subsegmental atelectases are noted in the lung bases. Patchy alveolar opacities are seen in the anterior basal segment of right lung lower lobe may represent early pneumonia. Normal pleura. Normal chest wall structures. Normal osseous structures. CT/CTA Chest W/WO Contrast IMPRESSION: No demonstrated pulmonary embolism or arterial dissection. Mild cardiomegaly. Possible early right lower lobe pneumonia. Possible pulmonary edema. Electronically Signed: Tami Rodriguez, at 3:31 EDT Tel , Service support ,
--- NOTE | 2019-04-15 01:13 | ED.VIS.GEN ---
History of Present Illness Chief Complaint: Numb/Ting Narrative: This patient is a 79-year-old female who actually presents with multiple complaints. She began to not feel well this evening. She had abdominal cramping. She also feels slightly short of breath. She felt like her heart was racing. She also complains of a headache. After she got up and went to the bathroom she developed numbness in both of her legs which is now improved. She has chronic back pain which is unchanged. She denies any chest pain. She did vomit once. She was also noted to have cyanotic lips and her pulse ox was 86% on room air. She was placed on a nasal cannula. Past Medical History - Allergies and Home Meds Allergies/Adverse Reactions: Allergies levofloxacin [Levofloxacin] Allergy (Verified 01/14/19 13:27) Hives warfarin [From Coumadin] Allergy (Verified 01/14/19 13:27) Other torsemide [From Demadex] Adverse Reaction (Intermediate, Verified 01/14/19 13:27) Rash Primary Care Physician: Minerva Martin MD [Primary Care Provider] - Prior records reviewed: Yes Past Medical History: - - Mild coronary disease, CHF, atrial fibrillation, prior intracranial hemorrhage, mitral valve replacement Surgical History: cataract, hysterectomy, total hip arthroplasty - Bilateral., total knee arthroplasty - Bilateral., - - AICD, Bioprosthetic mitral valve replacement, recent right knee debridement and skin grafting. Smoking Status: Never smoker - Family History Paternal Family History: Family History (Last Reviewed 01/14/19 @ 13:31 by Peace Maldonado) Father CVA (cerebral vascular accident) Mother Cancer Sister Cancer Diabetes Family History: Reports: Stroke Sibling Family History: Family History (Last Reviewed 01/14/19 @ 13:31 by Peace Maldonado) Father CVA (cerebral vascular accident) Mother Cancer Sister Cancer Diabetes Family History: Reports: Cancer, Diabetes Maternal Family History: Family History (Last Reviewed 01/14/19 @ 13:31 by Peace Maldonado) Father CVA (cerebral vascular accident) Mother Cancer Sister Cancer Diabetes Family History: Reports: Cancer Review of Systems All systems negative except as indicated General: Denies: Fever Cardiovascular: Reports: Palpitations. Denies: Chest pain Respiratory: Reports: Dyspnea Gastrointestinal: Reports: Abdominal pain. Denies: Nausea, Vomiting, Diarrhea Genitourinary: Denies: Dysuria Skin: Denies: Rash Neurological: Reports: Headache, Parasthesia Physical Exam Vital Signs/Narrative: Vital Signs Temp Pulse Resp BP Pulse Ox 04/14/19 23:00 98.5 F 96 22 H 116/84 H 93 04/14/19 22:58 98.5 F 104 H 22 H 116/84 H 94 General: Well nourished Head: Normocephalic Eyes: EOMI ENT: Moist mucous membranes Neck: Supple Cardiovascular: - - Heart is regular, slightly tachycardic, no murmurs gallops or rubs Respiratory: No distress, CTA bilaterally Abdomen: Soft, Nontender, Nondistended Extremities: - - Unable to palpate dorsalis pedis pulses but she has strong Doppler signals for bilateral posterior tibial pulses in the feet are warm with brisk capillary refill Skin: Normal color Neurological: Alert, - - Normal strength and sensation, normal sensation light touch of the bilateral lower extremities Psychological: Normal affect Diagnostic/Tx/Re-eval Impressions Chest X-Ray 04/15/19 00:25 IMPRESSION: Degenerative changes, as described above. No demonstrated acute cardiopulmonary process. Electronically Signed: Tami Rodriguez, at 0:48 EDT Tel , Service support , Abdomen CTA 04/15/19 00:27 IMPRESSION: There is no evidence of aortic dissection or hemodynamically significant stenosis. Electronically Signed: Tami Rodriguez at 3:26 EDT Tel , Service support , Chest CTA 04/15/19 00:27 IMPRESSION: No demonstrated pulmonary embolism or arterial dissection. Mild cardiomegaly. Possible early right lower lobe pneumonia. Possible pulmonary edema. Electronically Signed: Tami Rodriguez at 3:31 EDT Tel , Service support , 04/15/19 00:25 Chest 1 View (Portable) [RAD] Stat 04/15/19 00:27 CTA Abdomen W/WO Contrast [CT] Stat CTA Chest W/WO Contrast [CT] Stat Laboratory Results 04/15/19 04/15/19 04/15/19 01:33 01:33 01:33 WBC 17.0 H RBC 3.83 L Hgb 12.4 Hct 37.4 MCV 97.7 MCH 32.4 H MCHC 33.2 RDW Std Deviation 61.9 H RDW Coeff of Jackie 17.2 H Plt Count 180 MPV 9.2 Immature Gran % (Auto) 0.400 Neut % (Auto) 91.3 H Lymph % (Auto) 2.0 L [place] % (Auto) 4.4 Eos % (Auto) 1.7 Baso % (Auto) 0.2 Absolute Neuts (auto) 15.5 H Absolute Lymphs (auto) 0.34 L Nucleated RBC % 0 Differential Comment SCANNED PT 18.8 H INR 1.6 Sodium 136 Potassium 4.3 Chloride 103 Carbon Dioxide 26.0 Anion Gap 7 BUN 46 H Creatinine 1.54 H Estim Creat Clear Calc 33.08 Est GFR (MDRD) Af Amer 42 L Est GFR (MDRD) Non-Af 35 L BUN/Creatinine Ratio 29.9 H Glucose 109 H Calcium 9.2 Total Bilirubin 1.00 Direct Bilirubin 0.28 AST 21 ALT 22 Alkaline Phosphatase 83 Troponin I 0.058 H Total Protein 8.1 Albumin 3.9 Globulin 4.2 Lipase 132 - Medical Decision Making EKG shows sinus rhythm at a rate of 96 there is T wave inversions and ST depression in leads V3 through V6. There was some ST depression before but T wave inversions appear new. Given patient's complaints of abdominal pain and back pain with leg numbness this raise concern for aortic pathology. Therefore CTAs of the chest through the abdomen were obtained. Laboratory studies as above notable for white count of 17,000 and mild elevation of troponin 0 0.058. CTAs show no acute aortic pathology but there is possible pulmonary edema and possible right lower lobe pneumonia. Given leukocytosis and hypoxia I do believe this represents pneumonia. She was treated with IV Rocephin and azithromycin. She was also given IV Lasix for CHF. 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 Patient will be discussed with the hospitalist and admitted. ED Disposition - Plan for ED Patient: Disposition: Acute Care Hospital [facility] Diagnosis: Community acquired pneumonia, CHF (congestive heart failure), Acute respiratory failure with hypoxia Referrals: Minerva Martin MD [Primary Care Provider] -
[2019-04-15 01:40] LABS: Absolute Lymphocyte Count 0.34 X10^3/uL (0.83-4.51); Absolute Neutrophil Count 15.5 X10^3/uL (2.0-7.7); Basophil# 0.03 X10^3/uL; Basophil% 0.2 % (0-1); Eosinophil# 0.28 X10^3/uL; Eosinophils% 1.7 % (0-5); Hematocrit 37.4 % (37-47); Hemoglobin 12.4 g/dL (12.0-15.0); Lymphocyte # 0.34 X10^3/ul (4.0); Mean Corp Hgb Conc 33.2 g/dL (32-36); Mean Corpuscular Hgb 32.4 pg (27.0-32.0); Mean Corpuscular Volume 97.7 fL (81-99); Mean Platelet Vol. 9.2 fl (6.2-12.0); Monocyte# 0.74 X10^3/uL; Monocyte% 4.4 % (0-10); NRBC Flagged by Analyzer 0 % (0-5); Neutrophil # 15.49 X10^3/uL (2.7-7.7); Neutrophil % 91.3 % (47-70); POSITIVE DIFFERENTIAL YES; Platelet Count 180 K/mm3 (150-450); RBC Distribution Width CV 17.2 % (11.6-14.6); RBC Distribution Width SD 61.9 fl (35.1-43.9); Red Blood Count 3.83 M/mm3 (4.2-5.4)
[2019-04-15 01:42] LABS: Differential Indicated SCAN CRITERIA MET
[2019-04-15 01:49] LABS: International Normalized Ratio 1.6; Prothrombin Time (Protime)PT. 18.8 SECONDS (11.7-14.9)
[2019-04-15 01:57] LABS: AST(SGOT) 21 U/L (15-37); Alanine Aminotransfer ALT/SGPT 22 U/L (13-56); Albumin, Serum 3.9 g/dL (3.2-5.0); Alkaline Phosphatase 83 U/L (45-117); Anion Gap 7 (5-15); BUN 46 mg/dL (7-18); BUN/Creat Ratio 29.9 RATIO (10-20); Bilirubin, Direct 0.28 mg/dL (0.00-0.30); Calcium,Total 9.2 mg/dL (8.5-10.1); Chloride 103 mmol/L (98-107); Creatinine, Serum 1.54 mg/dL (0.55-1.02); EST Glomerular Filtration Rate 35 mL/min (>60); Est Glom Filt Rate - Afr Amer 42 mL/min (>60); Estimated Creatinine Clearance 33.08 ml/min; Globulin 4.2 g/dL (2.2-4.2); Glucose 109 mg/dL (74-106); Lipase 132 U/L (73-393); Potassium 4.3 mmol/L (3.5-5.1); Protein, Total 8.1 g/dL (6.4-8.2); Sodium Level 136 mmol/L (136-145)
[2019-04-15 02:04] LABS: Differential Comment SCANNED
--- NOTE | 2019-04-15 02:23 | ED.RN ---
JOSSE RIZVI REVIEWED RESTRAINT DOCUMENTATION.
[2019-04-15] MEDS: Morphine 4 MG/ML Syringe IV (02:40)
[2019-04-15] MEDS: Ondansetron 4 MG/2 ML Vial IV (02:40)
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
[2019-04-15] MEDS: Ceftriaxone 1 GM/50 ML BAG IV ×2 (03:55→21:43)
[2019-04-15] MEDS: Furosemide 40 MG/4 ML Vial IV (03:55)
[2019-04-15 04:18] LABS: Bacteria 0 SEEN /hpf (None Seen); Mucous, Urine 0 SEEN /hpf (<or=2+); Red Blood Cells-Urine 0 SEEN /hpf (0-5); Squamous Epithelial Cells - UA 0 SEEN /hpf (5-10); White Blood Cells 0 SEEN /hpf (0-5)
[2019-04-15 04:26] LABS: Color, Urine Yellow (Yellow); Glucose, Dipstick Normal (Normal); Ketone-Dipstick Negative (Negative); Leukocyte Esterase-Dipstick Negative /ul (Negative); Nitrite-Dipstick Negative (Negative); Occult Blood-Urine 10 /ul (Negative); Protein-Dipstick Negative (Negative); Urine Bilirubin Dipstick Negative (Negative); Urine Clarity Clear (Clear); Urine Urobilinogen Normal (Normal)
[2019-04-15 04:33] LABS: Amorphous Sediment 2+
--- NOTE | 2019-04-15 05:10 | ECHOD_ITS ---
Reason For Study: CHEST PAIN Procedure This was a 2D Doppler, Color Flow transthoracic echocardiogram. The study was technically difficult. Exam performed portable in patient room. Left Ventricle Mildly dilated left ventricle. The estimated ejection fraction is 20 %. There is evidence of diastolic dysfunction. There is severe global hypokinesis of the left ventricle. Right Ventricle Normal RV size. Normal systolic function. pacemaker/ AICD wire seen in RV and RA. Atria The left atrium is mildly enlarged. The right atrium is mildly enlarged. Mitral Valve There is no mitral valve stenosis. Mild (1+) mitral valve insufficiency. Stable appearing bioprosthetic mitral valve apparatus. Tricuspid Valve There is no tricuspid stenosis. Mild tricuspid valve insufficiency. Pulmonary artery systolic pressure is 45 mmHg. Aortic Valve Trisinus/trileaflet aortic valve. There is no aortic stenosis. No aortic valve insufficiency. Pulmonic Valve There is no pulmonic valvular stenosis. No pulmonic valve insufficiency. Great Vessels Normal aortic root. Pericardium/Pleural No pericardial effusion. MMode/2D Measurements & Calculations LVIDd: 6.4 cm IVSd: 0.92 cm Ao root diam: 3.2 cm LVIDs: 5.8 cm LVPWd: 1.0 cm FS: 9.1 % LAV(MOD-bp): 86.1 ml LA A4 area: 25.0 cm2 LA dimension(2D): 4.8 cm LAV(MOD-bp) Indexed: 43.9 ml/m2 LAV(MOD-sp2): 79.8 ml LAV(MOD-sp4): 79.0 ml RA A4 area: 24.3 cm2 Doppler Measurements & Calculations MV E max bari: 167.9 cm/sec Lat Peak E' Bari: 6.0 cm/sec Med Peak E' Bari: 3.3 cm/sec MV A max bari: 95.8 cm/sec E/E' lat: 27.9 E/E' med: 50.7 MV E/A: 1.8 MV V2 max: 195.2 cm/sec Ao V2 max: 118.4 cm/sec LV V1 max: 71.5 cm/sec MV max P.3 mmHg Ao max P.6 mmHg LV V1 max P.0 mmHg MV V2 mean: 113.1 cm/sec MV mean P.8 mmHg MV V2 VTI: 48.6 cm MR max bari: 353.5 cm/sec PA V2 max: 74.0 cm/sec TR max bari: 305.4 cm/sec MR max P.0 mmHg TR max P.3 mmHg MR mean bari: 270.3 cm/sec MR mean P.3 mmHg MR VTI: 106.1 cm MV P1/2t-pr_phl: 89.0 msec Interpretation Summary The estimated ejection fraction is 20 %. There is evidence of diastolic dysfunction. There is severe global hypokinesis of the left ventricle. pacemaker/ AICD wire seen in RV and RA Mild tricuspid valve insufficiency. Stable appearing bioprosthetic mitral valve apparatus. Mild (1+) mitral valve insufficiency. Pulmonary artery systolic pressure is 45 mmHg. Ordering Physician: Chavez Tubbs Referring Physician: Minerva Martin Performed By: Frida Mckeon, KEITH, RVT
[2019-04-15 07:08] LABS: Lactic Acid 1.6 mmol/L (0.4-2.0)
[2019-04-15] MEDS: BRIMONIDINE 0.15% 5 ML Bottle 1 DRP EACH EYE ×2 (08:14→21:54)
[2019-04-15] MEDS: Aspirin 81 MG TAB.CHEW PO (08:15)
[2019-04-15] MEDS: Citalopram 20 MG Tablet PO (08:15)
[2019-04-15] MEDS: Carvedilol 25 MG Tablet PO (08:16)
[2019-04-15] MEDS: Multivitamins,Therapeutic Tablet 1 TABLET PO (08:16)
[2019-04-15] MEDS: Furosemide 20 MG/2 ML VIAL IV ×2 (08:17→17:23)
[2019-04-15] MEDS: APIXABAN 2.5 MG TABLET PO ×2 (08:17→21:54)
--- NOTE | 2019-04-15 11:36 | CASEMGMT ---
RN CM Note: Attempted to interview pt for RN CM Assessment. Bipap mask was being applied, pt unable to participate @ this time. Family is not available in room. Assessment deferred; will continue to follow and complete when pt able to participate. Kelsey GIBBSN RN ACM
--- NOTE | 2019-04-15 11:38 | CASEMGMT ---
LW/POA forms in echart, they have been printed and placed in the paper chart. JASON Ortiz
[2019-04-15] MEDS: 0.9% Normal Saline 1,000 ML 100 ML IV (12:00)
[2019-04-15] MEDS: Hydrocortisone Sod Succinate 100 MG/2 ML Vial 50 MG IV (13:24)
--- NOTE | 2019-04-15 16:09 | PN_ITS ---
Patient Problems: Active and Suspected Problems (Last Reviewed 04/15/19 @ 05:15 by Chavez Tubbs MD) Community acquired pneumonia (Acute) CHF (congestive heart failure) (Acute) Acute respiratory failure with hypoxia (Acute) Heart failure (Acute) Subjective: Patient was seen and examined. Complains of some shortness of breath. Denied any dizziness or palpitation. Admitted this morning with community-acquired pneumonia, acute decompensated systolic CHF. Blood pressures have been in the 70s after giving carvedilol and Lasix. I stopped carvedilol and Lasix. Give IV fluid bolus 500 mils x1. Continued on 100 milsper hour of normal saline Not much change in her blood pressures. Vitals/I&O's: Vital Signs Temp Pulse Resp BP Pulse Ox 97.4 F L 77 28 H 80/54 L 30 04/15/19 12:00 04/15/19 13:00 04/15/19 13:00 04/15/19 12:00 04/15/19 14:00 Oxygen Flow Rate (L/min) 4 Oxygen Delivery Method CPAP Weight: 80.3 kg Body Mass Index (BMI) 24.9 Finger Stick Blood Glucose 146 Intake and Output for Last 24 Hours 04/13/19 04/14/19 04/15/19 23:59 23:59 23:59 Intake Total 830 / 830 Output Total 400 / 400 Balance 430 / 430 General: Alert, Oriented x3, Cooperative, No apparent distress HEENT: Atraumatic, PERRLA, EOMI, Normocephalic Oral: Moist Mucosa Neck: Supple Lungs: Diminished - at the lung bases, Rales - Rales at the lung bases Cardiovascular: Regular rate, Regular Rhythm, Normal S1, Normal S2, No murmurs Abdomen: Bowel Sounds Present, Soft, Non Tender, Non-Distended, No Hepato- splenomegaly Extremities: Edema - trace -+1 leg edema Skin: No rashes, No breakdown Musculoskeletal: No Tenderness to Palpation of Joints or Extremities Lymphatic: No Cervical, Supraclavicular, or Inguinal Adenopathy Neurological: Cranial nerves II-XII grossly intact Psych/Mental Status: Normal Affect, Appropriate Microbiology Past 72 Hours 04/15/19 04:15 Urine Catheter - Catheter Streptococcus pneumoniae Antigen (M - Final 04/15/19 04:15 Urine Catheter - Catheter Legionella Antigen - Final Laboratory Results 04/15/19 01:33: WBC 17.0 H, RBC 3.83 L, Hgb 12.4, Hct 37.4, MCV 97.7, MCH 32.4 H , MCHC 33.2, RDW Std Deviation 61.9 H, RDW Coeff of Jackie 17.2 H, Plt Count 180, MPV 9.2, Immature Gran % (Auto) 0.400, Neut % (Auto) 91.3 H, Lymph % (Auto) 2.0 L, [place] % (Auto) 4.4, Eos % (Auto) 1.7, Baso % (Auto) 0.2, Absolute Neuts (auto) 15.5 H, Absolute Lymphs (auto) 0.34 L, Nucleated RBC % 0, Differential Comment SCANNED 04/15/19 01:33: PT 18.8 H, INR 1.6 04/15/19 01:33: Sodium 136, Potassium 4.3, Chloride 103, Carbon Dioxide 26.0, Anion Gap 7, BUN 46 H, Creatinine 1.54 H, Estim Creat Clear Calc 33.08, Est GFR (MDRD) Af Amer 42 L, Est GFR (MDRD) Non-Af 35 L, BUN/Creatinine Ratio 29.9 H, Glucose 109 H, Calcium 9.2, Total Bilirubin 1.00, Direct Bilirubin 0.28, AST 21, ALT 22, Alkaline Phosphatase 83, Troponin I 0.058 H, Total Protein 8.1, Albumin 3.9, Globulin 4.2, Lipase 132 04/15/19 01:33: B-Natriuretic Peptide 1612.0 H 04/15/19 04:15: Urine Color Yellow, Urine Clarity Clear, Urine pH 5.0, Ur Specific [place] 1.010, Urine Protein Negative, Urine Glucose (UA) Normal, Urine Ketones Negative, Urine Occult Blood 10 H, Urine Nitrite Negative, Urine Bilirubin Negative, Urine Urobilinogen Normal, Ur Leukocyte Esterase Negative, Urine RBC 0 SEEN, Urine WBC 0 SEEN, Ur Squamous Epith Cells 0 SEEN, Amorphous Sediment 2+, Urine Bacteria 0 SEEN, Urine Mucus 0 SEEN 04/15/19 05:56: Lactic Acid 1.6 04/15/19 06:12: Troponin I 0.042 04/15/19 08:00: Troponin I 0.049 H Current Medications Acetaminophen (Tylenol) 650 mg PO Q6H PRN PRN PRN Reason: Mild Pain (scale 0-3)/T>100.7 Acetaminophen (Tylenol) 1,000 mg PO Q4H PRN PRN PRN Reason: PAIN Amitriptyline HCl (Elavil) 50 mg PO QHS [facility] Apixaban (Eliquis) 2.5 mg PO BID [facility] Last Admin: 04/15/19 08:17 Dose: 2.5 mg Documented by: Aspirin (Aspirin, Baby) 81 mg PO DAILY@0800 [facility] Last Admin: 04/15/19 08:15 Dose: 81 mg Documented by: Brimonidine Tartrate (Alphagan P 0.15%) 1 drop EACH EYE BID [facility] Last Admin: 04/15/19 08:14 Dose: 1 drop Documented by: Citalopram Hydrobromide (Celexa) 20 mg PO DAILY [facility] Last Admin: 04/15/19 08:15 Dose: 20 mg Documented by: Dextrose (D50w Syringe) 0 gm IV X1 PRN; Protocol PRN Reason: Hypoglycemia Fluticasone Propionate (Flonase Nasal [place]) 2 spray NASAL DAILY PRN PRN PRN Reason: CONGESTION Gabapentin (Neurontin) 100 mg PO QHS [facility] Glucagon () 1 mg IM .X1 PRN PRN Reason: Hypoglycemia Hydrocortisone Sodium Succinate (Solu-Cortef) 50 mg IV Q6 [facility] Last Admin: 04/15/19 13:24 Dose: 50 mg Documented by: Ceftriaxone Sodium (Rocephin) 1 gm in 50 mls @ 100 mls/hr IV Q24@2200 [facility] Azithromycin 500 mg/ Dextrose 255 mls @ 250 mls/hr IV Q24@2200 [facility] Sodium Chloride () 1,000 mls @ 100 mls/hr IV .Q10H [facility] Stop: 04/15/19 21:04 Last Admin: 04/15/19 12:00 Dose: 100 mls/hr Documented by: Levothyroxine Sodium (Synthroid) 88 mcg PO QHS [facility] Magnesium Oxide (Mag-Ox 400) 400 mg PO QODAY [facility] Multivitamins ([facility]itamin) [facility] Last Admin: 04/15/19 08:16 Dose: 1 tablet Documented by: Ondansetron HCl (Zofran) 4 mg IV Q8H PRN PRN PRN Reason: Nausea Potassium Chloride (K-Dur) 10 meq PO DAILYCM [facility] Last Admin: 04/15/19 08:16 Dose: 10 meq Documented by: Pravastatin Sodium (Pravachol) 40 mg PO QHS [facility] Sodium Chloride () 10 - 40 ml IV UD PRN PRN Reason: SALINE FLUSH Medical Necessity - Tobacco Use Smoking Status: Never smoker Assessment/Plan All Active Problems (Last Reviewed 04/15/19 @ 05:15 by Chavez Tubbs MD) Community acquired pneumonia (Acute) CHF (congestive heart failure) (Acute) Acute respiratory failure with hypoxia (Acute) Heart failure (Acute) Hypotension (Acute) SAY (acute kidney injury) (Acute) Debility (Acute) S/P implantation of automatic cardioverter/defibrillator (AICD) (Resolved) Concussion syndrome (Resolved) 79-year-old female with past medical history of nonischemic cardiomyopathy, EF 20%, status post AICD, paroxysmal atrial fibrillation, status post mitral valve replacement was admitted with multiple complaints and has been managed as community-acquired pneumonia with acute on chronic CHF. Patient was noted to be hypotensive and management today has basically been that of resuscitation. 1. Hypotension, unclear etiology, likely medication related as patient had a carvedilol and Lasix Could also be cardiogenic related, EF 20%, status post AICD History of adrenal insufficiency, on p.o. hydrocortisone, would switch to IV hydrocortisone 50mg Q6 Status post fluid boluses, blood pressure remains about the same We will have a low threshold to transfer to ICU for Levophed if blood pressures do not improve PICC line for fluid and vasopressors administration Continue to monitor for now in PCU in stepdown status 2. Sepsis secondary to community-acquired pneumonia, continue ceftriaxone and azithromycin 3. Acute on chronic systolic CHF, EF 20%, status post AICD Lasix on hold for now on account of hypotension We will continue to monitor on gentle fluids, may need Lasix if initiated on levophed 4. SAY on CKD, likely cardiorenal syndrome related, currently Lasix on hold for now, will continue to monitor hemodynamics, repeat blood work in a.m. 5. Elevation of troponin, mild, likely secondary to demand ischemia from pneumonia Cardiology consulted, beta-braden on hold, on aspirin 6. Paroxysmal atrial fibrillation, now in normal sinus rhythm, on Eliquis 7. DVT PPx- on eliquis Code Visit Inpatient E&M: 71161 Subs Hosp L2
[2019-04-15] MEDS: Hydrocortisone Sod Succinate 100 MG/2 ML Vial IV ×2 (17:24→23:15)
--- NOTE | 2019-04-15 18:18 | RAD_ITS ---
STUDY: X-RAY CHEST REASON FOR EXAM: Female, 79 years old. PICC line placement. TECHNIQUE: Single AP portable view of the chest. COMPARISON: Chest, April 15, 2019 (1228 hours). FINDINGS: Normal right-sided PICC line with its tip in the right atrium. There is minimally decreased inspiratory effort when compared to the prior chest film. There is no new infiltrate or mass. There is no demonstrated pleural abnormality. Sternal cerclage wires are present from a prior sternotomy. The heart is normal in size. Stable cardiac pacemaker/ICD. Normal mediastinum and juana. Normal visualized pulmonary arteries. Normal visualized aortic arch and descending thoracic aorta. No visualized osseous changes. There is no demonstrated abnormality of the visualized soft tissue structures of the upper abdomen. RAD/CXR for Line Placement IMPRESSION: Right side PICC line as described. There is no other major interval change from an examination of 6 hours earlier. Electronically Signed: Zion Magana DO at 18:43 EDT Tel [phone], Service support ,
--- NOTE | 2019-04-15 19:50 | RAD_ITS ---
STUDY: X-RAY CHEST REASON FOR EXAM: Female, 79 years old. PICC line adjustment. TECHNIQUE: Single AP portable view of the chest. COMPARISON: Chest, April 15, 2019 (1811 hours) FINDINGS: There is been adjustment of the right PICC line. The tip lies approximately 1 cm below the atrial caval junction. The lungs are unchanged from previous study. There is no demonstrated pleural abnormality. Stable heart and mediastinum. No visualized osseous changes. There is no demonstrated abnormality of the visualized soft tissue structures of the upper abdomen. RAD/CXR for Line Placement IMPRESSION: Change in position of the PICC line. There is no other interval change from the examination of approximately 2 hours earlier. Electronically Signed: Zion Magana DO at 20:21 EDT Tel [phone], Service support ,
[2019-04-15] MEDS: 0.9% NaCl IVPB Med Flush (250 mL) 15 ML IV (21:43)
[2019-04-15] MEDS: 0.9% NaCl Peripheral Flush Adult/Peds IV (21:45)
[2019-04-15] MEDS: Pravastatin 40 MG Tablet PO (21:54)
[2019-04-15] MEDS: Levothyroxine 88 MCG Tablet PO (21:54)
[2019-04-15] MEDS: Amitriptyline 25 MG Tablet 50 MG PO (21:54)
[2019-04-15] MEDS: Gabapentin 100 MG Capsule PO (23:12)
[2019-04-15] MEDS: Acetaminophen 325 MG Tablet 650 MG PO (23:15)
[2019-04-16] VITALS (21 sets, daily range): BP systolic 89–123; BP diastolic 58–84; PULSE 74–113; RESP 11–24; TEMP 36.2–37; O2SAT 92–100
[2019-04-16] MEDS: 0.9% NaCl PICC Flush IV ×3 (05:22→23:49)
[2019-04-16] MEDS: Hydrocortisone Sod Succinate 100 MG/2 ML Vial IV ×4 (05:29→23:48)
[2019-04-16] MEDS: 0.9% NaCl Peripheral Flush Adult/Peds IV ×4 (05:30→17:15)
[2019-04-16 05:34] LABS: Absolute Lymphocyte Count 0.56 X10^3/uL (0.83-4.51); Absolute Neutrophil Count 8.6 X10^3/uL (2.0-7.7); Basophil# 0.01 X10^3/uL; Basophil% 0.1 % (0-1); Hematocrit 33.5 % (37-47); Lymphocyte # 0.56 X10^3/ul (4.0); Mean Corp Hgb Conc 32.8 g/dL (32-36); Mean Corpuscular Hgb 32.4 pg (27.0-32.0); Mean Corpuscular Volume 98.5 fL (81-99); Mean Platelet Vol. 9.1 fl (6.2-12.0); Monocyte% 2.1 % (0-10); NRBC Flagged by Analyzer 0 % (0-5); Neutrophil # 8.55 X10^3/uL (2.7-7.7); Neutrophil % 91.2 % (47-70); POSITIVE DIFFERENTIAL YES; Platelet Count 163 K/mm3 (150-450); RBC Distribution Width CV 17.4 % (11.6-14.6); RBC Distribution Width SD 62.7 fl (35.1-43.9); White Blood Count 9.4 K/mm3 (4.4-11.0)
[2019-04-16 05:41] LABS: Differential Indicated SCAN CRITERIA MET
[2019-04-16 05:46] LABS: Anion Gap 8 (5-15); BUN 41 mg/dL (7-18); BUN/Creat Ratio 30.8 RATIO (10-20); Calcium,Total 8.4 mg/dL (8.5-10.1); Chloride 105 mmol/L (98-107); Creatinine, Serum 1.33 mg/dL (0.55-1.02); EST Glomerular Filtration Rate 41 mL/min (>60); Est Glom Filt Rate - Afr Amer 50 mL/min (>60); Estimated Creatinine Clearance 38.31 ml/min; Glucose 133 mg/dL (74-106); Potassium 4.1 mmol/L (3.5-5.1); Sodium Level 140 mmol/L (136-145)
[2019-04-16 06:06] LABS: Differential Comment SCANNED
[2019-04-16] MEDS: Aspirin 81 MG TAB.CHEW PO (08:38)
[2019-04-16] MEDS: Multivitamins,Therapeutic Tablet 1 TABLET PO (08:38)
[2019-04-16] MEDS: Citalopram 20 MG Tablet PO (08:38)
[2019-04-16] MEDS: BRIMONIDINE 0.15% 5 ML Bottle 1 DRP EACH EYE ×2 (08:38→21:12)
[2019-04-16] MEDS: Magnesium Oxide 400 MG Tablet PO (08:39)
[2019-04-16] MEDS: APIXABAN 2.5 MG TABLET PO ×2 (08:39→21:14)
[2019-04-16] MEDS: Furosemide 40 MG/4 ML Vial IV ×2 (08:39→17:15)
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
--- NOTE | 2019-04-16 11:29 | CASEMGMT ---
JOSSE RODRIGUEZ assessment: Face to Face with patient for initial transition planning/care coordination assessment. JOSSE RODRIGUEZ introduced self and role at [facility], pt voices understanding and consents to assessment at this time. Pt is sitting up in chair in no distress at this time. Pt is A/Ox4 at this time and answers all questions appropriately at this time. Pt's is at bedside during assessment. Care providers, pharmacy, and demographics verified at this time. PCP: Mario Specialists: Reina, cardio; laura Acevedo in [place] Preferred Pharmacy: [facility] Insurance: [employer] Prescription Benefit: [facility] Living Will/HPOA: Pt has LW/HPOA and they are on file at [facility] at this time. Pt states that her , Yoshi Arriaga, is HPOA. LNOK: Yoshi Arriaga, Living Arrangements: Pt states lives with on main level of 2 story home and states no concerns at home at this time. Pt states is independent with ADL's. Transportation: Pt states drives self in town or drives and states no transportation concerns at this time. DME/HHC: Pt states has the following DME: cane, walker, grab bars, shower chair, and cpap thru [employer]. Pt states no need for any further DME at this time. Pt states has had [facility] in the past and has been to [facility] and [facility] in the past. Pt states no concerns with going home at time of discharge. Pt is retired. Pt states does not smoke or drink ETOH. Pt states no further concerns/needs at this time. CM to follow for home oxygen need and any further discharge planning/needs. Advised pt to ask for CM if any further questions/concerns/needs arise, voices understanding. Green sheet on chart for possible home oxygen need. Pt Goal: [place] JOSSE RODRIGUEZ
--- NOTE | 2019-04-16 13:42 | PN_ITS ---
Patient Problems: Active and Suspected Problems (Last Reviewed 04/15/19 @ 05:15 by Chavez Tubbs MD) Community acquired pneumonia (Acute) CHF (congestive heart failure) (Acute) Acute respiratory failure with hypoxia (Acute) Heart failure (Acute) Subjective: Patient was seen and examined. Patient feels improved. BP is better. She is down to 2L oxygen. Denies chest pain, dizziness. Objective: Physical exam: General: Alert, Oriented x3, Cooperative, No apparent distress HEENT: Atraumatic, PERRLA, EOMI, Normocephalic Oral: Moist Mucosa Neck: Supple Lungs: Diminished - at the lung bases, Rales - Rales at the lung bases Cardiovascular: Regular rate, Regular Rhythm, Normal S1, Normal S2, No murmurs Abdomen: Bowel Sounds Present, Soft, Non Tender, Non-Distended, No Hepato- splenomegaly Extremities: Edema - trace -+1 leg edema Skin: No rashes, No breakdown Musculoskeletal: No Tenderness to Palpation of Joints or Extremities Lymphatic: No Cervical, Supraclavicular, or Inguinal Adenopathy Neurological: Cranial nerves II-XII grossly intact Psych/Mental Status: Normal Affect, Appropriate Vitals/I&O's: Vital Signs Temp Pulse Resp BP Pulse Ox 97.7 F L 86 20 H 105/62 96 04/16/19 12:00 04/16/19 12:00 04/16/19 12:00 04/16/19 12:00 04/16/19 12:00 Oxygen Flow Rate (L/min) 2 Oxygen Delivery Method Nasal Cannula Weight: 80.3 kg Body Mass Index (BMI) 24.9 Finger Stick Blood Glucose 146 Intake and Output for Last 24 Hours 04/14/19 04/15/19 04/16/19 23:59 23:59 23:59 Intake Total 1864.75 / 1864.75 325 / 325 Output Total 625 / 625 Balance 1239.75 / 1239.75 325 / 325 Microbiology Past 72 Hours 04/15/19 04:15 Urine Catheter - Catheter Streptococcus pneumoniae Antigen (M - Final 04/15/19 04:15 Urine Catheter - Catheter Legionella Antigen - Final Laboratory Results 04/16/19 05:15: WBC 9.4, RBC 3.40 L, Hgb 11.0 L, Hct 33.5 L, MCV 98.5, MCH 32.4 H, MCHC 32.8, RDW Std Deviation 62.7 H, RDW Coeff of Jackie 17.4 H, Plt Count 163, MPV 9.1, Immature Gran % (Auto) 0.600, Neut % (Auto) 91.2 H, Lymph % (Auto) 6.0 L, [place] % (Auto) 2.1, Eos % (Auto) 0.0, Baso % (Auto) 0.1, Absolute Neuts (auto) 8.6 H, Absolute Lymphs (auto) 0.56 L, Nucleated RBC % 0, Differential Comment SCANNED 04/16/19 05:15: Sodium 140, Potassium 4.1, Chloride 105, Carbon Dioxide 27.0, Anion Gap 8, BUN 41 H, Creatinine 1.33 H, Estim Creat Clear Calc 38.31, Est GFR (MDRD) Af Amer 50 L, Est GFR (MDRD) Non-Af 41 L, BUN/Creatinine Ratio 30.8 H, Glucose 133 H, Calcium 8.4 L Current Medications Acetaminophen (Tylenol) 1,000 mg PO Q8H PRN PRN PRN Reason: PAIN Amitriptyline HCl (Elavil) 50 mg PO QHS [facility] Last Admin: 04/15/19 21:54 Dose: 50 mg Documented by: Apixaban (Eliquis) 2.5 mg PO BID [facility] Last Admin: 04/16/19 08:39 Dose: 2.5 mg Documented by: Aspirin (Aspirin, Baby) 81 mg PO DAILY@0800 [facility] Last Admin: 04/16/19 08:38 Dose: 81 mg Documented by: Brimonidine Tartrate (Alphagan P 0.15%) 1 drop EACH EYE BID [facility] Last Admin: 04/16/19 08:38 Dose: 1 drop Documented by: Citalopram Hydrobromide (Celexa) 20 mg PO DAILY [facility] Last Admin: 04/16/19 08:38 Dose: 20 mg Documented by: Dextrose (D50w Syringe) 0 gm IV X1 PRN; Protocol PRN Reason: Hypoglycemia Fluticasone Propionate (Flonase Nasal [place]) 2 spray NASAL DAILY PRN PRN PRN Reason: CONGESTION Furosemide (Lasix) 40 mg IV BID@1000,1800 [facility] Last Admin: 04/16/19 08:39 Dose: 40 mg Documented by: Gabapentin (Neurontin) 100 mg PO QHS [facility] Last Admin: 04/15/19 23:12 Dose: 100 mg Documented by: Glucagon () 1 mg IM .X1 PRN PRN Reason: Hypoglycemia Hydrocortisone Sodium Succinate (Solu-Cortef) 100 mg IV Q6 [facility] Last Admin: 04/16/19 12:37 Dose: 100 mg Documented by: Ceftriaxone Sodium (Rocephin) 1 gm in 50 mls @ 100 mls/hr IV Q24@2200 [facility] Last Infusion: 04/15/19 22:13 Dose: Infused Documented by: Azithromycin 500 mg/ Dextrose 255 mls @ 250 mls/hr IV Q24@2200 [facility] Last Infusion: 04/16/19 00:14 Dose: Infused Documented by: Sodium Chloride () 250 mls @ 15 mls/hr IV .[id number] PRN PRN Reason: SALINE FLUSH Last Infusion: 04/16/19 02:54 Dose: 0 mls/hr Documented by: Levothyroxine Sodium (Synthroid) 88 mcg PO QHS [facility] Last Admin: 04/15/19 21:54 Dose: 88 mcg Documented by: Magnesium Oxide (Mag-Ox 400) 400 mg PO QODAY [facility] Last Admin: 04/16/19 08:39 Dose: 400 mg Documented by: Multivitamins ([facility]ivitamin) [facility] Last Admin: 04/16/19 08:38 Dose: 1 tablet Documented by: Ondansetron HCl (Zofran) 4 mg IV Q8H PRN PRN PRN Reason: Nausea Potassium Chloride (K-Dur) 10 meq [facility] Last Admin: 04/16/19 08:38 Dose: 10 meq Documented by: Pravastatin Sodium (Pravachol) 40 mg PO QHS [facility] Last Admin: 04/15/19 21:54 Dose: 40 mg Documented by: Sodium Chloride () 10 - 40 ml IV UD PRN PRN Reason: SALINE FLUSH Last Admin: 04/16/19 12:37 Dose: 10 ml Documented by: Sodium Chloride () 10 - 40 ml IV UD PRN PRN Reason: PICC FLUSH Last Admin: 04/16/19 05:22 Dose: 30 ml Documented by: Medical Necessity - Tobacco Use Smoking Status: Never smoker Assessment/Plan All Active Problems (Last Reviewed 04/15/19 @ 05:15 by Chavez Tubbs MD) Community acquired pneumonia (Acute) CHF (congestive heart failure) (Acute) Acute respiratory failure with hypoxia (Acute) Heart failure (Acute) Hypotension (Acute) SAY (acute kidney injury) (Acute) Debility (Acute) S/P implantation of automatic cardioverter/defibrillator (AICD) (Resolved) Concussion syndrome (Resolved) 79-year-old female with past medical history of nonischemic cardiomyopathy, EF 20%, status post AICD, paroxysmal atrial fibrillation, status post mitral valve replacement was admitted with multiple complaints and has been managed as community-acquired pneumonia with acute on chronic CHF. 1. Hypotension, unclear etiology, likely medication related/adrenal insufficiency, resolved off IV fluids, continue on IV hydrocortisone 2. Sepsis secondary to community-acquired pneumonia, Urine streptococcal and Legionella antigen negative continue on ceftriaxone and azithromycin 3. Acute on chronic systolic CHF, EF 20%, status post AICD, on lasix 20mg IV BID 4. SAY on CKD, likely cardiorenal syndrome related, improved, creatinine is down to 1.33 to 1.54 Continue on IV IV Lasix 20 mg IV, labs in am 5. Elevation of troponin, mild, likely secondary to demand ischemia from pneumonia Cardiology consulted, on aspirin We will continue to hold beta-braden; to be resumed in a.m. 6. Paroxysmal atrial fibrillation, now in normal sinus rhythm, on Eliquis 7. DVT PPx- on eliquis Code Visit Inpatient E&M: 52334 Subs Hosp L2
[2019-04-16 15:24] LABS: Magnesium 2.5 mg/dL (1.6-2.6)
[2019-04-16] MEDS: Hydrocortisone 2.5% Crm 1 APPLIC TOPICAL (17:15)
[2019-04-16] MEDS: 0.9% NaCl IVPB Med Flush (250 mL) 15 ML IV (21:05)
[2019-04-16] MEDS: Ceftriaxone 1 GM/50 ML BAG IV (21:11)
[2019-04-16] MEDS: Amitriptyline 25 MG Tablet 50 MG PO (21:13)
[2019-04-16] MEDS: Levothyroxine 88 MCG Tablet PO (21:14)
[2019-04-16] MEDS: Gabapentin 100 MG Capsule PO (21:14)
[2019-04-16] MEDS: Pravastatin 40 MG Tablet PO (21:14)
--- NOTE | 2019-04-16 21:54 | CPS ---
Patient family brought in home unit. Patient home unit set-up and distilled water added to CPAP.
[2019-04-17] VITALS (13 sets, daily range): BP systolic 108–132; BP diastolic 64–90; PULSE 79–130; RESP 14–18; TEMP 36.3–36.7; O2SAT 94–98
[2019-04-17] MEDS: 0.9% NaCl PICC Flush IV ×2 (04:25→05:11)
[2019-04-17 04:37] LABS: Absolute Lymphocyte Count 0.85 X10^3/uL (0.83-4.51); Absolute Neutrophil Count 11.3 X10^3/uL (2.0-7.7); Basophil# 0.01 X10^3/uL; Basophil% 0.1 % (0-1); Hematocrit 35.4 % (37-47); Hemoglobin 11.7 g/dL (12.0-15.0); Lymphocyte # 0.85 X10^3/ul (4.0); Lymphocyte % 6.7 % (19-41); Mean Corp Hgb Conc 33.1 g/dL (32-36); Mean Corpuscular Hgb 32.4 pg (27.0-32.0); Mean Corpuscular Volume 98.1 fL (81-99); Mean Platelet Vol. 9.1 fl (6.2-12.0); Monocyte# 0.47 X10^3/uL; Monocyte% 3.7 % (0-10); NRBC Flagged by Analyzer 0 % (0-5); Neutrophil # 11.34 X10^3/uL (2.7-7.7); Neutrophil % 89.1 % (47-70); Platelet Count 179 K/mm3 (150-450); RBC Distribution Width CV 17.2 % (11.6-14.6); Red Blood Count 3.61 M/mm3 (4.2-5.4); White Blood Count 12.7 K/mm3 (4.4-11.0)
[2019-04-17 04:52] LABS: Anion Gap 9 (5-15); BUN 37 mg/dL (7-18); BUN/Creat Ratio 31.4 RATIO (10-20); Calcium,Total 8.4 mg/dL (8.5-10.1); Chloride 105 mmol/L (98-107); Creatinine, Serum 1.18 mg/dL (0.55-1.02); EST Glomerular Filtration Rate 47 mL/min (>60); Est Glom Filt Rate - Afr Amer 57 mL/min (>60); Estimated Creatinine Clearance 43.18 ml/min; Glucose 132 mg/dL (74-106); Magnesium 2.4 mg/dL (1.6-2.6); Potassium 3.5 mmol/L (3.5-5.1); Sodium Level 142 mmol/L (136-145)
[2019-04-17] MEDS: Hydrocortisone Sod Succinate 100 MG/2 ML Vial IV ×3 (05:10→17:34)
--- NOTE | 2019-04-17 07:55 | EKG12_ITS ---
Test Reason : RHYTHM Blood Pressure : / mmHG Vent. Rate : 119 BPM Atrial Rate : 119 BPM P-R Int : 160 ms QRS Dur : 128 ms QT Int : 364 ms P-R-T Axes : 000 -13 162 degrees QTc Int : 512 ms Sinus tachycardia with occasional Premature ventricular complexes Non-specific intra-ventricular conduction block T wave abnormality, consider lateral ischemia Abnormal ECG When compared with ECG of 15-APR-2019 01:17, MANUAL COMPARISON REQUIRED, DATA IS UNCONFIRMED Confirmed by OLY COTTO ([id number]), non linear editor CAROLEE MARIEE ([id number] on 04/27/2019 1:04:13 PM Referred By: Chavez Tubbs Confirmed By:OLY COTTO
--- NOTE | 2019-04-17 07:58 | PCM.PN.HOSP ---
Patient Problems: Active and Suspected Problems (Last Reviewed 04/15/19 @ 05:15 by Chavez Tubbs MD) Community acquired pneumonia (Acute) CHF (congestive heart failure) (Acute) Acute respiratory failure with hypoxia (Acute) Heart failure (Acute) Subjective: Shunt was seen and examined. She feels much improved. On telemetry patient has multiple PVCs and tachycardia. Potassium and magnesium are unremarkable. Objective: Physical exam: General: Alert, Oriented x3, Cooperative, No apparent distress HEENT: Atraumatic, PERRLA, EOMI, Normocephalic Oral: Moist Mucosa Neck: Supple Lungs: Diminished - at the lung bases, Rales - Rales at the lung bases Cardiovascular: Regular rate, Regular Rhythm, Normal S1, Normal S2, No murmurs Abdomen: Bowel Sounds Present, Soft, Non Tender, Non-Distended, No Hepato-splenomegaly Extremities: Edema - trace -+1 leg edema Skin: No rashes, No breakdown Musculoskeletal: No Tenderness to Palpation of Joints or Extremities Lymphatic: No Cervical, Supraclavicular, or Inguinal Adenopathy Neurological: Cranial nerves II-XII grossly intact Psych/Mental Status: Normal Affect, Appropriate Vitals/I&O's: Vital Signs Temp Pulse Resp BP Pulse Ox 97.5 F L 89 14 116/65 95 04/17/19 03:29 04/17/19 03:29 04/17/19 03:29 04/17/19 03:29 04/17/19 03:29 Oxygen Flow Rate (L/min) 2 Oxygen Delivery Method Room Air Weight: 80.7 kg Body Mass Index (BMI) 24.9 Finger Stick Blood Glucose 146 Intake and Output for Last 24 Hours 04/15/19 04/16/19 04/17/19 23:59 23:59 23:59 Intake Total 1864.75 / 1864.75 1486.50 / 1486.50 116.5 / 116.5 Output Total 625 / 625 425 / 425 Balance 1239.75 / 1239.75 1486.50 / 1486.50 -308.5 / -308.5 Microbiology Past 72 Hours 04/15/19 04:15 Urine Catheter - Catheter Streptococcus pneumoniae Antigen (M - Final 04/15/19 04:15 Urine Catheter - Catheter Legionella Antigen - Final Laboratory Results 04/16/19 05:15: Magnesium 2.5 04/17/19 04:27: WBC 12.7 H, RBC 3.61 L, Hgb 11.7 L, Hct 35.4 L, MCV 98.1, MCH 32.4 H, MCHC 33.1, RDW Std Deviation 62.0 H, RDW Coeff of Jackie 17.2 H, Plt Count 179, MPV 9.1, Immature Gran % (Auto) 0.400, Neut % (Auto) 89.1 H, Lymph % (Auto) 6.7 L, [place] % (Auto) 3.7, Eos % (Auto) 0.0, Baso % (Auto) 0.1, Absolute Neuts (auto) 11.3 H, Absolute Lymphs (auto) 0.85, Nucleated RBC % 0 04/17/19 04:27: Sodium 142, Potassium 3.5, Chloride 105, Carbon Dioxide 28.0, Anion Gap 9, BUN 37 H, Creatinine 1.18 H, Estim Creat Clear Calc 43.18, Est GFR (MDRD) Af Amer 57 L, Est GFR (MDRD) Non-Af 47 L, BUN/Creatinine Ratio 31.4 H, Glucose 132 H, Calcium 8.4 L, Magnesium 2.4 Current Medications Acetaminophen (Tylenol) 1,000 mg PO Q8H PRN PRN PRN Reason: PAIN Amitriptyline HCl (Elavil) 50 mg PO QHS [facility] Last Admin: 04/16/19 21:13 Dose: 50 mg Documented by: Apixaban (Eliquis) 2.5 mg PO BID [facility] Last Admin: 04/16/19 21:14 Dose: 2.5 mg Documented by: Aspirin (Aspirin, Baby) 81 mg PO DAILY@0800 [facility] Last Admin: 04/16/19 08:38 Dose: 81 mg Documented by: Brimonidine Tartrate (Alphagan P 0.15%) 1 drop EACH EYE BID [facility] Last Admin: 04/16/19 21:12 Dose: 1 drop Documented by: Carvedilol (Coreg) 6.25 mg PO BID [facility] Citalopram Hydrobromide (Celexa) 20 mg PO DAILY [facility] Last Admin: 04/16/19 08:38 Dose: 20 mg Documented by: Dextrose (D50w Syringe) 0 gm IV X1 PRN; Protocol PRN Reason: Hypoglycemia Fluticasone Propionate (Flonase Nasal [place]) 2 spray NASAL DAILY PRN PRN PRN Reason: CONGESTION Furosemide (Lasix) 20 mg IV BID@1000,1800 [facility] Gabapentin (Neurontin) 100 mg PO QHS [facility] Last Admin: 04/16/19 21:14 Dose: 100 mg Documented by: Glucagon () 1 mg IM .X1 PRN PRN Reason: Hypoglycemia Hydrocortisone (Hytone) 1 applic TOPICAL TID PRN PRN; Protocol PRN Reason: ITCHING Last Admin: 04/16/19 17:15 Dose: 1 applicatio Documented by: Hydrocortisone Sodium Succinate (Solu-Cortef) 100 mg IV Q6 [facility] Last Admin: 04/17/19 05:10 Dose: 100 mg Documented by: Ceftriaxone Sodium (Rocephin) 1 gm in 50 mls @ 100 mls/hr IV Q24@2200 [facility] Last Infusion: 04/16/19 21:41 Dose: Infused Documented by: Azithromycin 500 mg/ Dextrose 255 mls @ 250 mls/hr IV Q24@2200 [facility] Last Infusion: 04/16/19 23:48 Dose: Infused Documented by: Sodium Chloride () 250 mls @ 15 mls/hr IV .[id number] PRN PRN Reason: SALINE FLUSH Last Infusion: 04/17/19 03:34 Dose: 0 mls/hr Documented by: Levothyroxine Sodium (Synthroid) 88 mcg PO QHS [facility] Last Admin: 04/16/19 21:14 Dose: 88 mcg Documented by: Loratadine (Claritin) 10 mg PO DAILY [facility] Magnesium Oxide (Mag-Ox 400) 400 mg PO QODAY [facility] Last Admin: 04/16/19 08:39 Dose: 400 mg Documented by: Multivitamins (Multivitamin) [facility] Last Admin: 04/16/19 08:38 Dose: 1 tablet Documented by: Ondansetron HCl (Zofran) 4 mg IV Q8H PRN PRN PRN Reason: Nausea Potassium Chloride (K-Dur) [facility] meq [facility] Last Admin: 04/16/19 08:38 Dose: 10 meq Documented by: Pravastatin Sodium (Pravachol) 40 mg PO QHS [facility] Last Admin: 04/16/19 21:14 Dose: 40 mg Documented by: Sodium Chloride () 10 - 40 ml IV UD PRN PRN Reason: SALINE FLUSH Last Admin: 04/16/19 17:15 Dose: 10 ml Documented by: Sodium Chloride () 10 - 40 ml IV UD PRN PRN Reason: PICC FLUSH Last Admin: 04/17/19 05:11 Dose: 20 ml Documented by: Medical Necessity - Tobacco Use Smoking Status: Never smoker Assessment/Plan All Active Problems (Last Reviewed 04/15/19 @ 05:15 by Chavez Tubbs MD) Community acquired pneumonia (Acute) CHF (congestive heart failure) (Acute) Acute respiratory failure with hypoxia (Acute) Heart failure (Acute) Hypotension (Acute) SAY (acute kidney injury) (Acute) Debility (Acute) S/P implantation of automatic cardioverter/defibrillator (AICD) (Resolved) Concussion syndrome (Resolved) 79-year-old female with past medical history of nonischemic cardiomyopathy, EF 20%, status post AICD, paroxysmal atrial fibrillation, status post mitral valve replacement was admitted with multiple complaints and has been managed as community-acquired pneumonia with acute on chronic CHF. 1. Hypotension, unclear etiology, likely medication related/adrenal insufficiency, resolved We will continue on IV hydrocortisone for today, switch to p.o. hydrocortisone from tomorrow 2. Sepsis secondary to community-acquired pneumonia, Urine streptococcal and Legionella antigen negative continue on ceftriaxone and azithromycin(day 3) 3. Acute on chronic systolic CHF, EF 20%, status post AICD, on po lasix 20mg BID 4. SAY on CKD, likely cardiorenal syndrome related, improved, creatinine is 1.18, will continue to monitor on p.o. Lasix Labs in am 5. Elevation of troponin, mild, likely secondary to demand ischemia from pneumonia Cardiology following, on aspirin 6. Paroxysmal atrial fibrillation, now in normal sinus rhythm, on Eliquis, will resume on Eliquis 7. DVT PPx- on eliquis Code Visit Inpatient E&M: 24861 Subs Hosp L2
[2019-04-17] MEDS: Carvedilol 6.25 MG Tablet PO (08:12)
[2019-04-17] MEDS: Aspirin 81 MG TAB.CHEW PO (08:12)
[2019-04-17] MEDS: Citalopram 20 MG Tablet PO (08:13)
[2019-04-17] MEDS: BRIMONIDINE 0.15% 5 ML Bottle 1 DRP EACH EYE ×2 (08:13→22:53)
[2019-04-17] MEDS: Multivitamins,Therapeutic Tablet 1 TABLET PO (08:13)
[2019-04-17] MEDS: APIXABAN 2.5 MG TABLET PO ×2 (08:14→22:54)
[2019-04-17] MEDS: Furosemide 20 MG/2 ML VIAL IV (08:14)
[2019-04-17] MEDS: Loratadine 10 MG Tablet PO (08:14)
--- NOTE | 2019-04-17 10:08 | PCM.PN.CARD ---
Subjectve: Patient doing better this morning, sitting in a chair, eating breakfast without difficulty. Telemetry showed normal sinus rhythm up until around 7:50 AM this morning at which time she developed atrial fibrillation with rapid ventricular response. However we were unable to document this by EKG in time, as her EKG showed normal sinus rhythm. In addition the patient received IV steroids which markedly improved the patient's blood pressure with respect to her adrenal insufficiency. Patient denies any chest pain or shortness of breath. Objective: Vital Signs Temp Pulse Resp BP Pulse Ox 98.1 F 111 H 18 108/64 95 04/17/19 09:29 04/17/19 09:29 04/17/19 09:29 04/17/19 09:29 04/17/19 09:29 Oxygen Flow Rate (L/min) 2 Oxygen Delivery Method Room Air Weight: 177 lb 14.609 oz Body Mass Index (BMI) 24.9 Finger Stick Blood Glucose 146 Intake and Output for Last 24 Hours 04/15/19 04/16/19 04/17/19 23:59 23:59 23:59 Intake Total 1864.75 / 1864.75 1486.50 / 1486.50 116.5 / 116.5 Output Total 625 / 625 425 / 425 Balance 1239.75 / 1239.75 1486.50 / 1486.50 -308.5 / -308.5 General: Awake, Alert, Oriented x 3 HEENT: PERRL, EOMI, Sclera Non Icteric Neck: Supple, Good ROM, No Lymph Node Enlargement Lungs: Clear to auscultation Cardiovascular: Irregular Rhythm, Normal S2, No Murmurs, No Rubs, No Gallops Murmur Murmur: Grade 2/6, Holosystolic Vascular: No Carotid Bruits, Normal Femoral Pulses, Normal Radial Pulses, Normal Dorsalis Pedal Pulse, Normal Posterior Tibial Pulses Abdomen: Bowel Sounds Present, Soft, Non Tender, No HSM, No Organomegaly Extremities: No Cyanosis, No Clubbing, No edema Neurological: No Focal Motor or Sensory Deficit 04/16/19 05:15: Magnesium 2.5 04/17/19 04:27: WBC 12.7 H, RBC 3.61 L, Hgb 11.7 L, Hct 35.4 L, MCV 98.1, MCH 32.4 H, MCHC 33.1, Plt Count 179, MPV 9.1, Immature Gran % (Auto) 0.400, Neut % (Auto) 89.1 H, Lymph % (Auto) 6.7 L, [place] % (Auto) 3.7, Eos % (Auto) 0.0, Baso % (Auto) 0.1, Absolute Neuts (auto) 11.3 H, Nucleated RBC % 0 04/17/19 04:27: Sodium 142, Potassium 3.5, Chloride 105, Carbon Dioxide 28.0, Anion Gap 9, BUN 37 H, Creatinine 1.18 H, Est GFR (MDRD) Af Amer 57 L, Est GFR (MDRD) Non-Af 47 L, BUN/Creatinine Ratio 31.4 H, Glucose 132 H, Calcium 8.4 L, Magnesium 2.4 Rhythm: EKG: ECHO: Stress Test: Cardiac Cath: PCI: CT Surgery: Holter monitor: EPS: PPM: CXR: Chest CT Scan: Medical Necessity - Tobacco Use Smoking Status: Never smoker Assessment/Plan 1. Nonischemic cardiomyopathy: The patient has an ejection fraction approximately 20%, and presented with hypotension, what appeared to be pneumonia, superimposed on adrenal insufficiency. Patient's blood pressure markedly improved with holding of her Coreg, IV fluids, and IV steroid supplementation. Patient had transient atrial fibrillation this morning, which self terminated back to normal sinus rhythm. At this point I would recommend restarting her Coreg but doing so at a lower dose, replacing her potassium to keep it above 4.0, and switching her from IV Lasix to p.o. Lasix 20 mg p.o. twice daily. Once her pulmonary infection has resolved, we can try and titrate her Coreg back up to 25 mg p.o. twice daily. I believe the patient will do much better maintaining normal sinus rhythm given her nonischemic cardiomyopathy. 2. Mitral valve replacement: The patient is status post [place] bioprosthetic mitral valve replacement. Repeat echocardiogram yesterday did not appear to identify any vegetations. She has no outward signs of endocarditis that I can tell. We will keep an eye on this and if she has any recurrent fevers, recurrent elevations of her white cell count, or any outward signs of endocarditis I have a low threshold for transesophageal echocardiogram to evaluate her bioprosthetic aortic valve. 3. Paroxysmal atrial fibrillation: The patient had an episode of paroxysmal atrial fibrillation this morning but unfortunately could not capture to by EKG and spontaneously converted back to normal sinus rhythm. Continue Coreg 6.25 mill grams p.o. twice daily and titrate up to 25 mg p.o. twice daily as she is able to tolerate this with respect to her pulmonary infection. In addition she will continue Eliquis therapy for CVA prevention. 4. Thank you very much for the opportunity to participate in the cardiac care of your patient. Code Visit Inpatient E&M: 09310 Subs Hosp L2
[2019-04-17] MEDS: Potassium Chloride 10mEq/100mL 10 MEQ/100 ML IV.SOLN. 100 MEQ IV BOLUS ×4 (10:57→15:18)
[2019-04-17] MEDS: Furosemide 20 MG Tablet PO (17:34)
--- NOTE | 2019-04-17 18:41 | EKG12_ITS ---
Test Reason : AFIB Blood Pressure : / mmHG Vent. Rate : 125 BPM Atrial Rate : 125 BPM P-R Int : 160 ms QRS Dur : 126 ms QT Int : 334 ms P-R-T Axes : 248 -10 166 degrees QTc Int : 482 ms Unusual P axis, possible ectopic atrial tachycardia with occasional Premature ventricular complexes Left ventricular hypertrophy with QRS widening and repolarization abnormality Abnormal ECG When compared with ECG of 17-APR-2019 08:33, MANUAL COMPARISON REQUIRED, DATA IS UNCONFIRMED Confirmed by OLY COTTO ([id number]), editor managing newspaper CAROLEE MARIEE ([id number]) on 04/27/2019 1:09:23 PM Referred By: Chavez Tubbs Confirmed By:OLY COTTO
[2019-04-17] MEDS: Metoprolol Tartrate 5 MG/5 ML Vial 2.5 MG IV (19:06)
[2019-04-17] MEDS: Carvedilol 12.5 MG Tablet PO (20:39)
[2019-04-17] MEDS: Ceftriaxone 1 GM/50 ML BAG IV (21:39)
[2019-04-17] MEDS: Pravastatin 40 MG Tablet PO (22:53)
[2019-04-17] MEDS: Gabapentin 100 MG Capsule PO (22:54)
[2019-04-17] MEDS: Levothyroxine 88 MCG Tablet PO (22:54)
[2019-04-17] MEDS: Amitriptyline 25 MG Tablet 50 MG PO (22:55)
[2019-04-18] VITALS (9 sets, daily range): BP systolic 112–123; BP diastolic 74–81; PULSE 70–118; RESP 16–18; TEMP 36.4–36.6; O2SAT 96–98
[2019-04-18] MEDS: Hydrocortisone Sod Succinate 100 MG/2 ML Vial IV ×4 (00:19→17:02)
[2019-04-18] MEDS: 0.9% NaCl Peripheral Flush Adult/Peds IV ×3 (00:19→21:19)
--- NOTE | 2019-04-18 07:56 | PN_ITS ---
Patient Problems: Active and Suspected Problems (Last Reviewed 04/15/19 @ 05:15 by Chavez Tubbs MD) Community acquired pneumonia (Acute) CHF (congestive heart failure) (Acute) Acute respiratory failure with hypoxia (Acute) Heart failure (Acute) Subjective: Patient was seen and examined. She went into A. fib with RVR yesterday with profuse sweating yesterday. She feels fatigued today. Denied any chest pain or dizziness or palpitations. On 2 L of oxygen Objective: Physical exam: General: Alert, Oriented x3, Cooperative, No apparent distress HEENT: Atraumatic, PERRLA, EOMI, Normocephalic Oral: Moist Mucosa Neck: Supple Lungs: Diminished - at the lung bases, Rales - Rales at the lung bases Cardiovascular: Regular rate, Regular Rhythm, Normal S1, Normal S2, No murmurs Abdomen: Bowel Sounds Present, Soft, Non Tender, Non-Distended, No Hepato- splenomegaly Extremities: Edema - trace -+1 leg edema Skin: No rashes, No breakdown Musculoskeletal: No Tenderness to Palpation of Joints or Extremities Lymphatic: No Cervical, Supraclavicular, or Inguinal Adenopathy Neurological: Cranial nerves II-XII grossly intact Psych/Mental Status: Normal Affect, Appropriate Vitals/I&O's: Vital Signs Temp Pulse Resp BP Pulse Ox 97.6 F L 84 18 115/81 H 96 04/18/19 04:49 04/18/19 04:49 04/18/19 04:49 04/18/19 04:49 04/18/19 07:35 Oxygen Flow Rate (L/min) 2 Oxygen Delivery Method Nasal Cannula Weight: 82.4 kg Body Mass Index (BMI) 24.9 Finger Stick Blood Glucose 146 Intake and Output for Last 24 Hours 04/16/19 04/17/19 04/18/19 23:59 23:59 23:59 Intake Total 1486.50 / 1486.50 826.5 / 1066.5 583.75 / 583.75 Output Total 425 / 425 Balance 1486.50 / 1486.50 401.5 / 641.5 583.75 / 583.75 Microbiology Past 72 Hours 04/15/19 06:12 Blood Culture (Wb) - Left Hand Blood Culture - Preliminary No growth in 48 hours. 04/15/19 05:56 Blood Culture (Wb) - Left Hand Blood Culture - Preliminary No growth in 48 hours. 04/15/19 04:15 Urine Catheter - Catheter Streptococcus pneumoniae Antigen (M - Final 04/15/19 04:15 Urine Catheter - Catheter Legionella Antigen - Final Current Medications Acetaminophen (Tylenol) 1,000 mg PO Q8H PRN PRN PRN Reason: PAIN Amitriptyline HCl (Elavil) 50 mg PO QHS [facility] Last Admin: 04/17/19 22:55 Dose: 50 mg Documented by: Apixaban (Eliquis) 2.5 mg PO BID [facility] Last Admin: 04/17/19 22:54 Dose: 2.5 mg Documented by: Aspirin (Aspirin, Baby) 81 mg PO DAILY@0800 [facility] Last Admin: 04/17/19 08:12 Dose: 81 mg Documented by: Brimonidine Tartrate (Alphagan P 0.15%) 1 drop EACH EYE BID [facility] Last Admin: 04/17/19 22:53 Dose: 1 drop Documented by: Carvedilol (Coreg) 12.5 mg PO BID [facility] Last Admin: 04/17/19 20:39 Dose: 12.5 mg Documented by: Citalopram Hydrobromide (Celexa) 20 mg PO DAILY [facility] Last Admin: 04/17/19 08:13 Dose: 20 mg Documented by: Dextrose (D50w Syringe) 0 gm IV X1 PRN; Protocol PRN Reason: Hypoglycemia Fluticasone Propionate (Flonase Nasal [place]) 2 spray NASAL DAILY PRN PRN PRN Reason: CONGESTION Furosemide (Lasix) 20 mg PO BID@1000,1800 [facility] Last Admin: 04/17/19 17:34 Dose: 20 mg Documented by: Gabapentin (Neurontin) 100 mg PO QHS [facility] Last Admin: 04/17/19 22:54 Dose: 100 mg Documented by: Glucagon () 1 mg IM .X1 PRN PRN Reason: Hypoglycemia Hydrocortisone (Hytone) 1 applic TOPICAL TID PRN PRN; Protocol PRN Reason: ITCHING Last Admin: 04/16/19 17:15 Dose: 1 applicatio Documented by: Hydrocortisone Sodium Succinate (Solu-Cortef) 100 mg IV Q6 [facility] Last Admin: 04/18/19 05:14 Dose: 100 mg Documented by: Ceftriaxone Sodium (Rocephin) 1 gm in 50 mls @ 100 mls/hr IV Q24@2200 [facility] Last Infusion: 04/17/19 22:48 Dose: Infused Documented by: Azithromycin 500 mg/ Dextrose 255 mls @ 250 mls/hr IV Q24@2200 [facility] Last Infusion: 04/18/19 00:13 Dose: Infused Documented by: Sodium Chloride () 250 mls @ 15 mls/hr IV .[id number] PRN PRN Reason: SALINE FLUSH Last Infusion: 04/18/19 06:07 Dose: 0 mls/hr Documented by: Levothyroxine Sodium (Synthroid) 88 mcg PO QHS [facility] Last Admin: 04/17/19 22:54 Dose: 88 mcg Documented by: Loratadine (Claritin) 10 mg PO DAILY [facility] Last Admin: 04/17/19 08:14 Dose: 10 mg Documented by: Magnesium Oxide (Mag-Ox 400) 400 mg PO QODAY [facility] Last Admin: 04/16/19 08:39 Dose: 400 mg Documented by: [facility] ([facility]) [facility] Last Admin: 04/17/19 08:13 Dose: 1 tablet Documented by: Ondansetron HCl (Zofran) 4 mg IV Q8H PRN PRN PRN Reason: Nausea Potassium Chloride (K-Dur) [facility] Last Admin: 04/17/19 08:13 Dose: 10 meq Documented by: Pravastatin Sodium (Pravachol) 40 mg PO QHS [facility] Last Admin: 04/17/19 22:53 Dose: 40 mg Documented by: Sodium Chloride () 10 - 40 ml IV UD PRN PRN Reason: SALINE FLUSH Last Admin: 04/18/19 05:13 Dose: 10 ml Documented by: Sodium Chloride () 10 - 40 ml IV UD PRN PRN Reason: PICC FLUSH Last Admin: 04/17/19 05:11 Dose: 20 ml Documented by: Medical Necessity - Tobacco Use Smoking Status: Never smoker Assessment/Plan All Active Problems (Last Reviewed 04/15/19 @ 05:15 by Chavez Tubbs MD) Community acquired pneumonia (Acute) CHF (congestive heart failure) (Acute) Acute respiratory failure with hypoxia (Acute) Heart failure (Acute) Hypotension (Acute) SAY (acute kidney injury) (Acute) Debility (Acute) S/P implantation of automatic cardioverter/defibrillator (AICD) (Resolved) Concussion syndrome (Resolved) 79-year-old female with past medical history of nonischemic cardiomyopathy, EF 20%, status post AICD, paroxysmal atrial fibrillation, status post mitral valve replacement was admitted with multiple complaints and has been managed as community-acquired pneumonia with acute on chronic CHF. Within the first day of admission, patient was found to be profoundly hypotensive. This was believed to be secondary to the carvedilol and Lasix she had received on arrival to the floor. She was started on IV fluid boluses and switch to IV hydrocortisone, with improvement in her BP. She was not transferred to the ICU. She was managed on PCU. Patient has subsequently been managed on IV Lasix for acute on chronic systolic CHF 1. Hypotension, unclear etiology, likely medication related/adrenal insufficiency, resolved We will continue on IV hydrocortisone as patient still has hemodynamic instability. She can be switched to oral hydrocortisone from tomorrow if she is stable 2. Sepsis secondary to community-acquired pneumonia, Urine streptococcal and Legionella antigen negative continue on ceftriaxone and azithromycin(day 3) 3. Acute on chronic systolic CHF, EF 20%, status post AICD, on po lasix 20mg BID 4. SAY on CKD, likely cardiorenal syndrome related, improved, creatinine is 1.18, will continue to monitor on p.o. Lasix Labs in am 5. Hypokalemia, replaced, recheck in am 6. Elevation of troponin, mild, likely secondary to demand ischemia from pneumonia Cardiology following, on aspirin 7. Paroxysmal atrial fibrillation, now in normal sinus rhythm, on Eliquis, will resume on Eliquis 8. DVT PPx- on eliquis Code Visit Inpatient E&M: 75726 Subs Hosp L2
[2019-04-18] MEDS: Multivitamins,Therapeutic Tablet 1 TABLET PO (08:57)
[2019-04-18] MEDS: APIXABAN 2.5 MG TABLET PO ×2 (08:57→21:19)
[2019-04-18] MEDS: Carvedilol 12.5 MG Tablet PO ×2 (08:57→11:50)
[2019-04-18] MEDS: Citalopram 20 MG Tablet PO (08:57)
[2019-04-18] MEDS: Aspirin 81 MG TAB.CHEW PO (08:57)
[2019-04-18] MEDS: Loratadine 10 MG Tablet PO (08:57)
[2019-04-18] MEDS: Magnesium Oxide 400 MG Tablet PO (08:58)
[2019-04-18] MEDS: BRIMONIDINE 0.15% 5 ML Bottle 1 DRP EACH EYE ×2 (08:59→21:21)
[2019-04-18] MEDS: Furosemide 20 MG Tablet PO ×2 (09:01→17:02)
[2019-04-18 09:14] LABS: Anion Gap 11 (5-15); BUN 34 mg/dL (7-18); BUN/Creat Ratio 27.2 RATIO (10-20); Calcium,Total 8.8 mg/dL (8.5-10.1); Chloride 104 mmol/L (98-107); Creatinine, Serum 1.25 mg/dL (0.55-1.02); EST Glomerular Filtration Rate 44 mL/min (>60); Est Glom Filt Rate - Afr Amer 53 mL/min (>60); Estimated Creatinine Clearance 40.76 ml/min; Glucose 192 mg/dL (74-106); Potassium 3.4 mmol/L (3.5-5.1); Sodium Level 141 mmol/L (136-145)
--- NOTE | 2019-04-18 10:00 | PN.CARD_ITS ---
Subjectve: Patient seen and examined this morning. She reports that she had significant sweats last night as well as tachycardia. Telemetry showed sinus tachycardia with PVCs, ventricular couplets, and nonsustained wide-complex tachycardia. Her symptoms abated and she feels better this morning. Potassium is 3.4. Objective: Vital Signs Temp Pulse Resp BP Pulse Ox 97.9 F 118 H 18 123/80 H 98 04/18/19 08:46 04/18/19 08:46 04/18/19 08:46 04/18/19 08:46 04/18/19 08:46 Oxygen Flow Rate (L/min) 2 Oxygen Delivery Method Nasal Cannula Weight: 181 lb 10.574 oz Body Mass Index (BMI) 24.9 Finger Stick Blood Glucose 146 Intake and Output for Last 24 Hours 04/16/19 04/17/19 04/18/19 23:59 23:59 23:59 Intake Total 1486.50 / 1486.50 826.5 / 1066.5 583.75 / 583.75 Output Total 425 / 425 Balance 1486.50 / 1486.50 401.5 / 641.5 583.75 / 583.75 General: Awake, Alert, Oriented x 3 HEENT: PERRL, EOMI, Sclera Non Icteric Neck: Supple, Good ROM, No Lymph Node Enlargement Lungs: Clear to auscultation Cardiovascular: Regular Rhythm, Premature Ectopic Beats, Normal S1, Normal S2, No Murmurs, No Rubs, No Gallops Murmur Murmur: Grade 2/6, Holosystolic Vascular: No Carotid Bruits, Normal Femoral Pulses, Normal Radial Pulses, Normal Dorsalis Pedal Pulse, Normal Posterior Tibial Pulses Abdomen: Bowel Sounds Present, Soft, Non Tender, No HSM, No Organomegaly Extremities: No Cyanosis, No Clubbing, No edema Neurological: No Focal Motor or Sensory Deficit 04/18/19 08:15: Sodium 141, Potassium 3.4 L, Chloride 104, Carbon Dioxide 26.0, Anion Gap 11, BUN 34 H, Creatinine 1.25 H, Est GFR (MDRD) Af Amer 53 L, Est GFR (MDRD) Non-Af 44 L, BUN/Creatinine Ratio 27.2 H, Glucose 192 H, Calcium 8.8 Rhythm: EKG: ECHO: Stress Test: Cardiac Cath: PCI: CT Surgery: Holter monitor: EPS: PPM: CXR: Chest CT Scan: Medical Necessity - Tobacco Use Smoking Status: Never smoker Assessment/Plan 1. Nonischemic cardiomyopathy: The patient has an ejection fraction approximately 20%, and presented with hypotension, what appeared to be pneumonia, superimposed on adrenal insufficiency. Patient's blood pressure markedly improved with reduction of her Coreg, IV fluids, and IV steroid supplementation. Patient had transient atrial fibrillation on 04/17/2019 morning, which self terminated back to normal sinus rhythm. Telemetry overnight showed sinus tachycardia with occasional PVCs, ventricular couplets, and burst of wide- complex tachycardia. At this point I would recommend increasing her Coreg back to its original 25 mg p.o. twice daily, replacing her potassium to keep it above 4.0, and switching her from IV Lasix to p.o. Lasix 20 mg p.o. twice daily. I believe the patient will do much better maintaining normal sinus rhythm given her nonischemic cardiomyopathy. The patient has persistent wide-complex tachycardia, she may benefit from amiodarone loading to assist with maintaining normal sinus rhythm as well as ventricular arrhythmia suppression. I would not recommend patient be discharged home at this time. 2. Mitral valve replacement: The patient is status post [place] bioprosthetic mitral valve replacement. Repeat echocardiogram did not appear to identify any vegetations. She has no outward signs of endocarditis that I can tell. We will keep an eye on this and if she has any recurrent fevers, recurrent elevations of her white cell count, or any outward signs of endocarditis I have a low threshold for transesophageal echocardiogram to evalua te her bioprosthetic aortic valve. 3. Paroxysmal atrial fibrillation: The patient had an episode of paroxysmal atrial fibrillation this morning but unfortunately could not capture to by EKG and spontaneously converted back to normal sinus rhythm. Continue Coreg 25 mill grams p.o. twice daily In addition she will continue Eliquis therapy for CVA prevention. 4. Thank you very much for the opportunity to participate in the cardiac care of your patient. Would recommend keeping the patient 1 more day due to her arrhythmia and titrating up her Coreg. Code Visit Inpatient E&M: 41463 Subs Hosp L2
[2019-04-18 10:38] LABS: Magnesium 2.3 mg/dL (1.6-2.6)
[2019-04-18] MEDS: Potassium Chloride 10mEq/100mL 10 MEQ/100 ML IV.SOLN. 100 MEQ IV BOLUS ×4 (11:49→15:27)
[2019-04-18] MEDS: Pravastatin 40 MG Tablet PO (21:18)
[2019-04-18] MEDS: Levothyroxine 88 MCG Tablet PO (21:19)
[2019-04-18] MEDS: Gabapentin 100 MG Capsule PO (21:19)
[2019-04-18] MEDS: Carvedilol 25 MG Tablet PO (21:19)
[2019-04-18] MEDS: Ceftriaxone 1 GM/50 ML BAG IV (21:20)
[2019-04-18] MEDS: Amitriptyline 25 MG Tablet 50 MG PO (21:20)
[2019-04-19] VITALS (7 sets, daily range): BP systolic 110–120; BP diastolic 75–88; PULSE 74–109; RESP 14–16; TEMP 36.6–36.7; O2SAT 94–98
[2019-04-19] MEDS: Hydrocortisone Sod Succinate 100 MG/2 ML Vial IV ×3 (00:35→11:43)
[2019-04-19] MEDS: 0.9% NaCl Peripheral Flush Adult/Peds IV ×3 (00:36→05:48)
[2019-04-19 05:37] LABS: Anion Gap 8 (5-15); BUN 37 mg/dL (7-18); BUN/Creat Ratio 31.1 RATIO (10-20); Calcium,Total 8.4 mg/dL (8.5-10.1); Chloride 107 mmol/L (98-107); Creatinine, Serum 1.19 mg/dL (0.55-1.02); EST Glomerular Filtration Rate 47 mL/min (>60); Est Glom Filt Rate - Afr Amer 57 mL/min (>60); Estimated Creatinine Clearance 42.81 ml/min; Glucose 117 mg/dL (74-106); Potassium 4.3 mmol/L (3.5-5.1); Sodium Level 143 mmol/L (136-145)
[2019-04-19] MEDS: Multivitamins,Therapeutic Tablet 1 TABLET PO (08:45)
[2019-04-19] MEDS: Aspirin 81 MG TAB.CHEW PO (08:45)
[2019-04-19] MEDS: Citalopram 20 MG Tablet PO (09:22)
[2019-04-19] MEDS: Furosemide 20 MG Tablet PO (09:22)
[2019-04-19] MEDS: Loratadine 10 MG Tablet PO (09:22)
[2019-04-19] MEDS: APIXABAN 2.5 MG TABLET PO (09:23)
[2019-04-19] MEDS: BRIMONIDINE 0.15% 5 ML Bottle 1 DRP EACH EYE (09:24)
[2019-04-19] MEDS: Carvedilol 25 MG Tablet PO (09:36)
--- NOTE | 2019-04-19 09:49 | PCM.PN.HOSP ---
Subjective: Patient gets short of breath on conversation. Pulse in 70s, sinus rhythm with multiple PVCs and couplets. Blood pressure 120/88. Pulse ox 96% on room air. Patient had hemorrhagic stroke back in 2005 on Coumadin. Has history of bioprosthetic mitral valve replacement, A. fib paroxysmal on Eliquis. Denies chest pressure/chest pain. Patient states she is walked all the room. Vitals/I&O's: Vital Signs Temp Pulse Resp BP Pulse Ox 97.9 F 74 14 120/88 H 96 04/19/19 07:54 04/19/19 08:50 04/19/19 08:50 04/19/19 07:54 04/19/19 07:54 Oxygen Flow Rate (L/min) 2 Oxygen Delivery Method Room Air Weight: 183 lb 3.266 oz Body Mass Index (BMI) 24.9 Finger Stick Blood Glucose 146 Intake and Output for Last 24 Hours 04/17/19 04/18/19 04/19/19 23:59 23:59 23:59 Intake Total 826.5 / 1066.5 1338.75 / 1338.75 100 / 100 Output Total 425 / 425 800 / 800 Balance 401.5 / 641.5 538.75 / 538.75 100 / 100 General: Alert, Oriented x3, Cooperative HEENT: Atraumatic, PERRLA, EOMI, Normocephalic Neck: Supple, No JVD, Negative Carotid Bruits Lungs: Diminished - Air entry diminished on bilateral lung bases. Bilateral coarse crepitation present. Dyspnea on exertion present Cardiovascular: Regular rate, Normal S1, Normal S2, Irregular Rate, Murmur - Systolic murmur present over mitral area. Abdomen: Bowel Sounds Present, Soft, Non Tender, Non-Distended Extremities: No edema, Capillary Refill Less than 3 Seconds Skin: No rashes, No breakdown Musculoskeletal: No Tenderness to Palpation of Joints or Extremities, Arthritic Changes, Muscle Wasting Neurological: Cranial nerves II-XII grossly intact Psych/Mental Status: Normal Affect, Appropriate Microbiology Past 72 Hours 04/18/19 13:00 Stool C. difficile DNA Amplification - Final 04/15/19 06:12 Blood Culture (Wb) - Left Hand Blood Culture - Preliminary No growth in 48 hours. 04/15/19 05:56 Blood Culture (Wb) - Left Hand Blood Culture - Preliminary No growth in 48 hours. Laboratory Results 04/18/19 08:15: Magnesium 2.3 04/19/19 05:55: Sodium 143, Potassium 4.3, Chloride 107, Carbon Dioxide 28.0, Anion Gap 8, BUN 37 H, Creatinine 1.19 H, Estim Creat Clear Calc 42.81, Est GFR (MDRD) Af Amer 57 L, Est GFR (MDRD) Non-Af 47 L, BUN/Creatinine Ratio 31.1 H, Glucose 117 H, Calcium 8.4 L Current Medications Acetaminophen (Tylenol) 1,000 mg PO Q8H PRN PRN PRN Reason: PAIN Amitriptyline HCl (Elavil) 50 mg PO QHS [facility] Last Admin: 04/18/19 21:20 Dose: 50 mg Documented by: Apixaban (Eliquis) 2.5 mg PO BID [facility] Last Admin: 04/19/19 09:23 Dose: 2.5 mg Documented by: Aspirin (Aspirin, Baby) 81 mg PO DAILY@0800 [facility] Last Admin: 04/19/19 08:45 Dose: 81 mg Documented by: Brimonidine Tartrate (Alphagan P 0.15%) 1 drop EACH EYE BID [facility] Last Admin: 04/19/19 09:24 Dose: 1 drop Documented by: Carvedilol (Coreg) 25 mg PO BID [facility] Last Admin: 04/19/19 09:36 Dose: 25 mg Documented by: Citalopram Hydrobromide (Celexa) 20 mg PO DAILY [facility] Last Admin: 04/19/19 09:22 Dose: 20 mg Documented by: Dextrose (D50w Syringe) 0 gm IV X1 PRN; Protocol PRN Reason: Hypoglycemia Fluticasone Propionate (Flonase Nasal [place]) 2 spray NASAL DAILY PRN PRN PRN Reason: CONGESTION Furosemide (Lasix) 20 mg PO BID@1000,1800 [facility] Last Admin: 04/19/19 09:22 Dose: 20 mg Documented by: Gabapentin (Neurontin) 100 mg PO QHS [facility] Last Admin: 04/18/19 21:19 Dose: 100 mg Documented by: Glucagon () 1 mg IM .X1 PRN PRN Reason: Hypoglycemia Hydrocortisone (Hytone) 1 applic TOPICAL TID PRN PRN; Protocol PRN Reason: ITCHING Last Admin: 04/16/19 17:15 Dose: 1 applicatio Documented by: Hydrocortisone Sodium Succinate (Solu-Cortef) 100 mg IV Q6 [facility] Last Admin: 04/19/19 05:47 Dose: 100 mg Documented by: Ceftriaxone Sodium (Rocephin) 1 gm in 50 mls @ 100 mls/hr IV Q24@2200 [facility] Last Infusion: 04/18/19 21:50 Dose: Infused Documented by: Azithromycin 500 mg/ Dextrose 255 mls @ 250 mls/hr IV Q24@2200 [facility] Last Infusion: 04/18/19 22:18 Dose: Infused Documented by: Sodium Chloride () 250 mls @ 15 mls/hr IV .[id number] PRN PRN Reason: SALINE FLUSH Last Infusion: 04/18/19 06:07 Dose: 0 mls/hr Documented by: Levothyroxine Sodium (Synthroid) 88 mcg PO QHS [facility] Last Admin: 04/18/19 21:19 Dose: 88 mcg Documented by: Loratadine (Claritin) 10 mg PO DAILY [facility] Last Admin: 04/19/19 09:22 Dose: 10 mg Documented by: Magnesium Oxide (Mag-Ox 400) 400 mg PO QODAY [facility] Last Admin: 04/18/19 08:58 Dose: 400 mg Documented by: [facility]it[facility]) [facility] Last Admin: 04/19/19 08:45 Dose: 1 tablet Documented by: Ondansetron HCl (Zofran) 4 mg IV Q8H PRN PRN PRN Reason: Nausea Potassium Chloride (K[facility]Dur) [facility] Last Admin: 04/19/19 08:45 Dose: 10 meq Documented by: Pravastatin Sodium (Pravachol) 40 mg PO QHS [facility] Last Admin: 04/18/19 21:18 Dose: 40 mg Documented by: Sodium Chloride () 10 - 40 ml IV UD PRN PRN Reason: SALINE FLUSH Last Admin: 04/19/19 05:48 Dose: 10 ml Documented by: Sodium Chloride () 10 - 40 ml IV UD PRN PRN Reason: PICC FLUSH Last Admin: 04/17/19 05:11 Dose: 20 ml Documented by: Medical Necessity - Tobacco Use Smoking Status: Never smoker Assessment/Plan All Active Problems (Last Reviewed 04/15/19 @ 05:15 by Chavez Tubbs MD) Community acquired pneumonia (Acute) CHF (congestive heart failure) (Acute) Acute respiratory failure with hypoxia (Acute) Heart failure (Acute) Hypotension (Acute) SAY (acute kidney injury) (Acute) Debility (Acute) S/P implantation of automatic cardioverter/defibrillator (AICD) (Resolved) Concussion syndrome (Resolved) Please see assessment, evaluation and management plan in the discharge summary.
--- NOTE | 2019-04-19 11:11 | DCINST_ITS ---
- Discharge Diagnoses Current Active Problems: Current Active and Chronic Problems (Last Reviewed 04/15/19 @ 05:15 by Chavez Tubbs MD) Community acquired pneumonia (Acute) CHF (congestive heart failure) (Acute) Acute respiratory failure with hypoxia (Acute) Heart failure (Acute) You will use the following diet at home:: Cardiac Discharge Activity: May Not Drive Weight Bearing Status: Weight bearing as tolerated Call your doctor if you observe: Fever of 101 or Higher, Numbness or Tingling, Inability to urinate, Inability to have a bowel movement, Shortness of breath, Dizziness, Fainting spells, Swelling in the ankles, Chest pain, Increased palpitations (irregular heartbeat), Calf discomfort, Uncontrolled pain Allergies/Adverse Reactions: Allergies levofloxacin [Levofloxacin] Allergy (Verified 04/15/19 04:52) Hives warfarin [From Coumadin] Allergy (Verified 04/15/19 04:52) Other torsemide [From Demadex] Adverse Reaction (Intermediate, Verified 04/15/19 04:52) Rash Medications to take at Discharge Multivitamins,Therapeutic [Multivitamin] 1 tab PO DAILY 11/16/15 albuterol sulfate HFA 90 mcg/actuation aerosol inhaler 2 puff INHALATION BID PRN 09/10/17 pravastatin 40 mg tablet 40 mg PO QHS tab 09/11/17 fluticasone propionate 50 mcg/actuation nasal spray,suspension 2 spray INTRANASAL QDAY PRN 01/20/18 Citalopram Hydrobromide [Celexa] 20 mg PO DAILY 06/18/18 Brimonidine 0.15% [Alphagan P 0.15%] 1 drp EACH EYE BID 06/19/18 Levothyroxine [Synthroid] 88 mcg PO QHS 06/22/18 gabapentin 100 mg capsule 100 mg PO QHS cap 07/15/18 Aspirin [Aspirin, Baby] 81 mg PO DAILY@0800 09/07/18 amitriptyline 50 mg tablet 50 mg PO QHS 10/15/18 apixaban 2.5 mg tablet 2.5 mg PO BID 10/15/18 magnesium 250 mg tablet 250 mg PO QODAY tab 10/15/18 Acetaminophen [Tylenol] 1,000 mg PO Q4H PRN PRN 11/09/18 Budesonide Aerosol [Pulmicort Respules] 0.5 mg INHALATION BID PRN 11/09/18 carvedilol 25 mg tablet 25 mg PO BID #180 tab 11/25/18 Cefdinir 300 mg PO BID #4 cap 04/19/19 Furosemide [Lasix] 20 mg PO BID@1000,1800 #60 tab 04/19/19 Hydrocortisone [Cortef] 2.5 mg PO QODAY #30 tab 04/19/19 Potassium Chloride [K-Dur] 10 meq PO DAILYCM #30 tab 04/19/19 The following prescriptions were given: Cefdinir 300 mg PO BID #4 cap Prescription Printed Hydrocortisone [Cortef] 2.5 mg PO QODAY #30 tab Prescription Printed Potassium Chloride [K-Dur] 10 meq PO DAILYCM #30 tab Prescription Printed Furosemide [Lasix] 20 mg PO BID@1000,1800 #60 tab Prescription Printed Primary Care Physician: Minerva Martin MD [Primary Care Provider] - Please follow up with your Primary Care Physician in: in 2 weeks Test Results: Test results from this visit will be discussed in further detail at your follow- up appointment, if applicable. Please Follow Up With: Gurdeep Huang MD When: in 2 weeks
--- NOTE | 2019-04-19 11:44 | PHA.DC.COU ---
Pharmacy Services has performed discharge medication counseling for this patient. The patient was counseled on the following discharge medications and changes in medications for homegoing review. 1. OMNICEF 300M CAP PO BID X4 DOSES 2. KCL 10MEQ: 1T PO DAILYCM The Reason for Use, instructions for use, and potential side effects were reviewed for all new medications. The patient's questions regarding all of their medications were answered. The patient demonstrated some understanding but would benefit from further education and reinforcement.
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
--- NOTE | 2019-04-19 13:18 | PCM.PN.CARD ---
Subjectve: Patient is feeling better. Still has some shortness of breath. She has been ambulating. Objective: Vital Signs Temp Pulse Resp BP Pulse Ox 97.9 F 74 16 110/78 96 04/19/19 11:51 04/19/19 11:51 04/19/19 11:51 04/19/19 11:51 04/19/19 11:51 Oxygen Flow Rate (L/min) 2 Oxygen Delivery Method Room Air Weight: 183 lb 3.266 oz Body Mass Index (BMI) 24.9 Finger Stick Blood Glucose 146 Intake and Output for Last 24 Hours 04/17/19 04/18/19 04/19/19 23:59 23:59 23:59 Intake Total 826.5 / 1066.5 1338.75 / 1338.75 100 / 100 Output Total 425 / 425 800 / 800 Balance 401.5 / 641.5 538.75 / 538.75 100 / 100 General: Awake, Alert, Oriented x 3 HEENT: Atraumatic Oral: Moist Mucosa Neck: Supple Lungs: Rales - David Bases Cardiovascular: Normal S1, Normal S2 Abdomen: Soft Extremities: No edema Skin: No Rashes Psych/Mental Status: Appropriate 04/19/19 05:55: Sodium 143, Potassium 4.3, Chloride 107, Carbon Dioxide 28.0, Anion Gap 8, BUN 37 H, Creatinine 1.19 H, Est GFR (MDRD) Af Amer 57 L, Est GFR (MDRD) Non-Af 47 L, BUN/Creatinine Ratio 31.1 H, Glucose 117 H, Calcium 8.4 L Rhythm: EKG: ECHO: Stress Test: Cardiac Cath: PCI: CT Surgery: Holter monitor: EPS: PPM: CXR: Chest CT Scan: Medical Necessity - Tobacco Use Smoking Status: Never smoker Assessment/Plan 1. CHF: Improved. Patient has minimal bibasal crackles. Significantly improved from Friday. Continue medications at current doses. I would suggest checking a BMP in 5 days and following up with Dr. Huang after that. 2. Atrial fibrillation: Patient is on Eliquis. She is currently in sinus rhythm. 3. Hypotension: Responded well to higher dose of steroids and holding the carvedilol. Currently tolerating Coreg at prior dose. 4. Status post mitral valve replacement: Patient has history of bioprosthetic mitral valve replacement. Valve appears to be functioning well. Okay to be discharged from a cardiac standpoint.
--- NOTE | 2019-04-20 13:42 | CASEMGMT ---
JOSSE RODRIGUEZ NE PHONE CALL DC DATE: 04/19/19 DC Disposition: Home Diagnosis on Discharge: pneumonia LACE/STRATA: 07/14 Intro role of CM to patient via phone. Pt states she is still tired, did not sleep well last night, had one episode of diarrhea today. No other symptoms noted. Reviewed medications, f/u appointments were made and pt is aware of them. Does not anticipate issue getting to physician appts. No care improvement suggestions were given. Kelsey GIBBSN RN ACM
== END 2019-04-19 13:38 | disposition home or self-care (01) | DRG 871 ==
LOC: ED 04-15 03:49 → PCU 04-15 05:35
PROVIDERS: Internal Medicine; Admitting Provider Hospitalist; Emergency Provider Emergency Medicine; Family Provider Internal Medicine; PCP Internal Medicine; Referring Provider Hospitalist; Visit Provider Internal Medicine
DX: A41.9 Sepsis, unspecified organism (principal); J18.9 Pneumonia, unspecified organism; J96.21 Acute and chronic respiratory failure with hypoxia; I50.23 Acute on chronic systolic (congestive) heart failure; I42.9 Cardiomyopathy, unspecified; N17.9 Acute kidney failure, unspecified; I13.0 Hypertensive heart and chronic kidney disease with heart failure and stage 1 through stage 4 chronic kidney disease, or unspecified chronic kidney disease; I24.8 Other forms of acute ischemic heart disease; I48.0 Paroxysmal atrial fibrillation; E87.6 Hypokalemia; N18.9 Chronic kidney disease, unspecified; E03.9 Hypothyroidism, unspecified; G47.33 Obstructive sleep apnea (adult) (pediatric); Z95.810 Presence of automatic (implantable) cardiac defibrillator; Z95.3 Presence of xenogenic heart valve
CPT/HCPCS: 36415; 36569; 71045; 71275; 74175; 80048; 80076; 81001; 83605; 83690; 83735; 83880; 84484; 85025; 85610; 87040; 87449; 87493; 87506; 93005; 93306; 94660; 97110; 97116; 97162; 97166; 97530; 97535; 99285; J7030; J7040; J7050; P9612; Q9967; A4216; J1940; J2405

== ENCOUNTER → 2019-07-22 09:00 | Outpatient (CLI) | payer MEDICARE, SELFPAY ==
[2019-06-24 10:04] VITALS: BMI 25.8
== END ==
PROVIDERS: Family Provider Internal Medicine; PCP Internal Medicine; Referring Provider Internal Medicine Critical Care Medicine; Visit Provider Internal Medicine Critical Care Medicine
DX: G47.33 Obstructive sleep apnea (adult) (pediatric) (principal)
CPT/HCPCS: 98960; G0463

== ENCOUNTER → 2019-07-22 11:30 | Outpatient (CLI) | payer MEDICARE, SELFPAY ==
[2019-07-22 10:43] VITALS: BMI 26.2
--- NOTE | 2019-07-22 11:42 | RAD_ITS ---
STUDY: X-RAY CHEST REASON FOR EXAM: Female, 79 years old. Cough and shortness of breath. TECHNIQUE: PA and lateral views of the chest. COMPARISON: Comparison is made with prior study dated April 15, 2019. FINDINGS: The lungs are clear and expanded. There is no demonstrated pleural abnormality. Sternal cerclage wires and vascular clips are present from a prior sternotomy and coronary artery bypass graft procedure (CABG). A left-sided dual-chamber pacemaker is seen. Normal mediastinum and juana. Normal visualized pulmonary arteries. There is atherosclerotic tortuosity of the aortic arch and descending thoracic aorta. There is demineralization of the osseous structures. Normal visualized ribs, clavicles, and shoulders. There is no demonstrated abnormality of the visualized soft tissue structures of the upper abdomen. RAD/Chest PA and Lateral IMPRESSION: No acute abnormality is seen. Electronically Signed: Ed Fink, at 13:00 EST , Service support ,
[2019-07-22 12:36] LABS: Absolute Lymphocyte Count 0.55 X10^3/uL (0.83-4.51); Absolute Neutrophil Count 6.4 X10^3/uL (2.0-7.7); Basophil# 0.04 X10^3/uL; Basophil% 0.5 % (0-1); Eosinophil# 0.12 X10^3/uL; Eosinophils% 1.5 % (0-5); Hematocrit 36.3 % (37-47); Hemoglobin 11.3 g/dL (12.0-15.0); Lymphocyte # 0.55 X10^3/ul (4.0); Lymphocyte % 6.9 % (19-41); Mean Corp Hgb Conc 31.1 g/dL (32-36); Mean Corpuscular Hgb 30.7 pg (27.0-32.0); Mean Corpuscular Volume 98.6 fL (81-99); Mean Platelet Vol. 9.5 fl (6.2-12.0); Monocyte# 0.85 X10^3/uL; Monocyte% 10.6 % (0-10); NRBC Flagged by Analyzer 0 % (0-5); Neutrophil % 80.1 % (47-70); POSITIVE DIFFERENTIAL YES; Platelet Count 188 K/mm3 (150-450); RBC Distribution Width CV 15.9 % (11.6-14.6); RBC Distribution Width SD 57.8 fl (35.1-43.9); Red Blood Count 3.68 M/mm3 (4.2-5.4)
[2019-07-22 12:39] LABS: Differential Indicated SCAN CRITERIA MET
[2019-07-22 12:54] LABS: Hypochromasia 1+; Platelet Estimate ADEQUATE (ADEQ)
[2019-07-22 13:30] LABS: Anion Gap 4 (5-15); BUN 38 mg/dL (7-18); BUN/Creat Ratio 26.8 RATIO (10-20); Calcium,Total 9.1 mg/dL (8.5-10.1); Chloride 107 mmol/L (98-107); Creatinine, Serum 1.42 mg/dL (0.55-1.02); EST Glomerular Filtration Rate 38 mL/min (>60); Est Glom Filt Rate - Afr Amer 46 mL/min (>60); Glucose 97 mg/dL (74-106); Potassium 4.4 mmol/L (3.5-5.1); Sodium Level 138 mmol/L (136-145); T4 Free Direct 1.48 ng/dL (0.76-1.46)
== END ==
PROVIDERS: Family Provider Internal Medicine; PCP Internal Medicine; Referring Provider Nurse Practitioner Family; Visit Provider Nurse Practitioner Family
DX: R06.09 Other forms of dyspnea (principal); R06.02 Shortness of breath; I48.0 Paroxysmal atrial fibrillation; I50.9 Heart failure, unspecified; I27.20 Pulmonary hypertension, unspecified; G47.33 Obstructive sleep apnea (adult) (pediatric); R53.1 Weakness; R53.83 Other fatigue; Z95.810 Presence of automatic (implantable) cardiac defibrillator
CPT/HCPCS: 36415; 71046; 80048; 83880; 84439; 84443; 85025; 98960; G0463

== ENCOUNTER → 2019-07-26 13:09 | Outpatient (CLI) | payer MEDICARE, SELFPAY ==
[2019-07-22 10:43] VITALS: BMI 26.2
[2019-07-26 13:27] VITALS: BP 89/54; PULSE 87; RESP 16; TEMP 36.7; O2SAT 98; BMI 24.4
[2019-07-26 14:40] VITALS: BP 90/61; PULSE 83
[2019-07-26] MEDS: Furosemide 40 MG/4 ML Vial 80 MG IV (14:43)
[2019-07-26 15:05] VITALS: BP 103/62; PULSE 83
[2019-07-26 15:12] LABS: Anion Gap 3 (5-15); BUN 36 mg/dL (7-18); BUN/Creat Ratio 24.8 RATIO (10-20); Calcium,Total 8.8 mg/dL (8.5-10.1); Chloride 106 mmol/L (98-107); Creatinine, Serum 1.45 mg/dL (0.55-1.02); EST Glomerular Filtration Rate 37 mL/min (>60); Est Glom Filt Rate - Afr Amer 45 mL/min (>60); Estimated Creatinine Clearance 35.14 ml/min; Glucose 86 mg/dL (74-106); Potassium 4.2 mmol/L (3.5-5.1); Sodium Level 137 mmol/L (136-145)
== END ==
PROVIDERS: Family Provider Internal Medicine; PCP Internal Medicine; Referring Provider Internal Medicine Cardiovascular Disease; Visit Provider Internal Medicine Cardiovascular Disease
DX: R06.09 Other forms of dyspnea (principal); I42.9 Cardiomyopathy, unspecified
CPT/HCPCS: 96374; 36415; 80048; A4216; J1940

== ENCOUNTER → 2019-07-27 13:15 | Outpatient (CLI) | payer MEDICARE, SELFPAY ==
[2019-07-26 13:27] VITALS: BMI 24.4
[2019-07-27 14:02] LABS: Anion Gap 2 (5-15); BUN 33 mg/dL (7-18); BUN/Creat Ratio 23.1 RATIO (10-20); Chloride 105 mmol/L (98-107); Creatinine, Serum 1.43 mg/dL (0.55-1.02); EST Glomerular Filtration Rate 38 mL/min (>60); Est Glom Filt Rate - Afr Amer 46 mL/min (>60); Glucose 84 mg/dL (74-106); Potassium 4.9 mmol/L (3.5-5.1); Sodium Level 137 mmol/L (136-145)
[2019-07-27] MEDS: Furosemide 40 MG/4 ML Vial 80 MG IV (14:23)
[2019-07-27 14:24] VITALS: BP 105/71; PULSE 91; RESP 16; TEMP 36.7; BMI 24.7
== END ==
PROVIDERS: Family Provider Internal Medicine; PCP Internal Medicine; Referring Provider Internal Medicine Cardiovascular Disease; Visit Provider Internal Medicine Cardiovascular Disease
DX: I42.9 Cardiomyopathy, unspecified (principal); R06.09 Other forms of dyspnea
CPT/HCPCS: 96374; 36415; 80048; A4216; J1940

== ENCOUNTER → 2019-07-28 13:11 | Outpatient (CLI) | payer MEDICARE, SELFPAY ==
[2019-07-26 13:27] VITALS: BMI 24.4
[2019-07-28 13:40] VITALS: BP 117/75; PULSE 102; RESP 16; TEMP 36.2; O2SAT 100; BMI 25.1
[2019-07-28] MEDS: Furosemide 40 MG/4 ML Vial 80 MG IV (13:42)
[2019-07-28 13:58] LABS: Anion Gap 5 (5-15); BUN 32 mg/dL (7-18); BUN/Creat Ratio 21.9 RATIO (10-20); Calcium,Total 9.1 mg/dL (8.5-10.1); Chloride 102 mmol/L (98-107); Creatinine, Serum 1.46 mg/dL (0.55-1.02); EST Glomerular Filtration Rate 37 mL/min (>60); Est Glom Filt Rate - Afr Amer 45 mL/min (>60); Glucose 76 mg/dL (74-106); Potassium 4.6 mmol/L (3.5-5.1); Sodium Level 136 mmol/L (136-145)
== END ==
PROVIDERS: Family Provider Internal Medicine; PCP Internal Medicine; Referring Provider Internal Medicine Cardiovascular Disease; Visit Provider Internal Medicine Cardiovascular Disease
DX: I42.9 Cardiomyopathy, unspecified (principal); R06.09 Other forms of dyspnea
CPT/HCPCS: 96374; 36415; 80048; A4216; J1940

== ENCOUNTER 2019-08-13 11:08 | Inpatient (IN) | payer MEDICARE, SELFPAY ==
[2019-07-28 13:40] VITALS: BMI 25.1
[2019-08-13] VITALS (11 sets, daily range): BP systolic 93–112; BP diastolic 46–74; PULSE 77–105; RESP 18–23; TEMP 36.4–37.1; O2SAT 90–100; BMI 24.8; BMI 24.5
--- NOTE | 2019-08-13 11:48 | RAD_ITS ---
STUDY: X-RAY CHEST REASON FOR EXAM: Female, 79 years old. PT BEING TREATED FOR CHF. REMAINS SOB, HYPOTENSION TECHNIQUE: PA and lateral views of the chest. COMPARISON: 07/22/2019. FINDINGS: Cardiomegaly. Aorta minimally calcified. New focal patchy airspace opacities. No significant pleural effusions. Pulmonary vascularity within normal limits. Slightly coarse lung markings. Upper abdomen unremarkable. Osseous structures are slightly demineralized with mild generative features. COPD with coarse lung markings and mild scarring. No visualized pneumothorax. RAD/Chest PA and Lateral IMPRESSION: No new focal patchy airspace opacities No significant radiographic evidence of CHF COPD with coarse lung markings and mild scarring Cardiomegaly, cardiac surgery and cardiac device Electronically Signed: Kelvin Gonsalves DO at 12:18 EST Tel , Service support ,
--- NOTE | 2019-08-13 11:48 | EKG12_ITS ---
Test Reason : SOB Blood Pressure : / mmHG Vent. Rate : 080 BPM Atrial Rate : 080 BPM P-R Int : 224 ms QRS Dur : 132 ms QT Int : 442 ms P-R-T Axes : 102 -07 145 degrees QTc Int : 509 ms Sinus rhythm with 1st degree A-V block Non-specific intra-ventricular conduction block T wave abnormality, consider anterolateral ischemia Abnormal ECG Confirmed by ADAM TIRADO, LAUREN ([id number]), publication editor JAMAAL SAHNI ([id number]) on 08/17/2019 9:00:19 AM Referred By: Afshan Joaquin Confirmed By:LAUREN MEDINA MD
--- NOTE | 2019-08-13 11:50 | ED.VIS.DYS ---
History of Present Illness Chief Complaint: Shortness of Breath Informant: Patient, Spouse/S.O. 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 Negative for: Bloody Sputum Chest Pain: None Narrative: Patient sent to the ER for worsening dyspnea and generalized weakness, she is having nonproductive cough with bronchospasm. She feels miserable when she is coughing a lot. This is been going on for about 2 weeks. She was seen as an outpatient, had an elevated proBNP and a CHF exacerbation was suspected so she was getting outpatient IV Lasix injections here at the hospital and placed on Lasix as an outpatient. She seemed to do better. She is using nebulizer treatments which are helping some when she uses them. thought she was getting dehydrated because she was feeling very weak and so he cut back on the Lasix. Still getting it twice daily however. Today seen in PCP office for follow-up and apparently PCP discussed with cardiology and they thought sending her to the ER would be beneficial. 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 Status: Chronic (11) Depression Status: Chronic (12) History of mitral valve replacement with porcine valve Status: Chronic Comment: mod-severe stenosis by SOL 08/11/15 s/p MVR porcine (13) Hyperlipemia Status: Chronic (14) Hypothyroidism Status: Chronic (15) 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 Status: Chronic (16) Memory impairment Status: Chronic (17) Menopausal osteoporosis Status: Chronic (18) Methicillin resistant Staphylococcus aureus infection Status: Chronic (19) Nonrheumatic mitral (valve) prolapse Status: Chronic (20) URMILA (obstructive sleep apnea) Status: Chronic (21) Paroxysmal atrial fibrillation Status: Chronic (22) Prediabetes Status: Chronic (23) Pulmonary HTN Status: Chronic (24) Renal insufficiency Status: Chronic (25) Restrictive lung disease Status: Chronic (26) Spondylosis of cervical joint Status: Chronic (27) Stroke Status: Chronic (28) Clostridium difficile diarrhea Status: Inactive Past Medical History - Allergies and Home Meds Allergies/Adverse Reactions: Allergies levofloxacin [Levofloxacin] Allergy (Verified 08/13/19 11:10) Hives warfarin [From Coumadin] Allergy (Verified 08/13/19 11:10) Other torsemide [From Demadex] Adverse Reaction (Intermediate, Verified 08/13/19 11:10) Rash Primary Care Physician: Minerva Martin MD [Primary Care Provider] - Surgical History: cataract, hysterectomy, total hip arthroplasty - Bilateral., total knee arthroplasty - Bilateral., - - AICD, Bioprosthetic mitral valve replacement, recent right knee debridement and skin grafting. Lives: Spouse/ Significant Other Smoking Status: Never smoker - Family History Paternal Family History: Family History (Last Reviewed 06/24/19 @ 13:32 by Alysa Mills) Father CVA (cerebral vascular accident) Mother Cancer Sister Cancer Diabetes Family History: Reports: Stroke Sibling Family History: Family History (Last Reviewed 06/24/19 @ 13:32 by Alysa Mills) Father CVA (cerebral vascular accident) Mother Cancer Sister Cancer Diabetes Family History: Reports: Cancer, Diabetes Maternal Family History: Family History (Last Reviewed 06/24/19 @ 13:32 by Alysa Mills) Father CVA (cerebral vascular accident) Mother Cancer Sister Cancer Diabetes Family History: Reports: Cancer Review of Systems General: Reports: Malaise. Denies: Chills, Fever, Sweats Eyes: Denies: Visual changes - bilaterally, Diplopia ENT: Denies: Rhinorrhea, Sore throat Cardiovascular: Denies: Chest pain, Palpitations Respiratory: Reports: Dyspnea, Cough, Dyspnea on exertion, Orthopnea. Denies: Sputum Gastrointestinal: Reports: Abdominal pain - only when coughing. Denies: Nausea, Vomiting, Diarrhea, Melena, Hematochezia Genitourinary: Denies: Dysuria, Hematuria, Frequency Musculoskeletal: Reports: Swelling - maybe just a little. Denies: Neck pain, Back pain, Extremity Pain Skin: Denies: Rash, Wounds Neurological: Denies: Headache, Weakness, Numbness Physical Exam Vital Signs/Narrative: Vital Signs Temp Pulse Resp BP Pulse Ox 08/13/19 11:08 97.6 F L 80 18 93/46 L 96 Inital Vital Signs reviewed: Yes General: Well nourished, Well developed, No Acute Distress Head: Normocephalic, Atraumatic Eyes: Perrl, EOMI ENT: Moist mucous membranes, No rhinorrhea Neck: Supple, Nontender. Negative for: No JVD - + JVD Cardiovascular: Regular rate, Regular rhythm, No murmurs Respiratory: Chest nontender, Rhonchi - mild bibasilar, Diminished. Negative for: Rales, Wheezing Abdomen: Soft, Nontender, Nondistended, Normal bowel sounds Back: Nontender, Normal Inspection. Negative for: CVA tenderness Extremities: Nontender, Edema - trace BLE midshin, symmetric. Negative for: Calf Tenderness Skin: Normal color, No rash, No Trauma Neurological: Alert, Oriented x3, Cranial nerves II-XII grossly intact, Normal Strength, Normal Sensation Psychological: Normal affect, Normal Mood Diagnostic/Tx/Re-eval Impressions Chest X-Ray 08/13/19 11:48 IMPRESSION: No new focal patchy airspace opacities No significant radiographic evidence of CHF COPD with coarse lung markings and mild scarring Cardiomegaly, cardiac surgery and cardiac device Electronically Signed: Kelvin Gonsalves DO at 12:18 EST Tel , Service support , 08/13/19 11:48 Chest PA and Lateral [RAD] Stat Laboratory Results 08/13/19 08/13/19 08/13/19 11:25 11:25 11:25 WBC 10.0 RBC 3.60 L Hgb 10.8 L Hct 34.3 L MCV 95.3 MCH 30.0 MCHC 31.5 L RDW Std Deviation 57.7 H RDW Coeff of Jackie 16.9 H Plt Count 190 MPV 9.7 Immature Gran % (Auto) 0.700 Neut % (Auto) 73.1 H Lymph % (Auto) 10.7 L [place] % (Auto) 14.2 H Eos % (Auto) 1.0 Baso % (Auto) 0.3 Absolute Neuts (auto) 7.3 Absolute Lymphs (auto) 1.07 Nucleated RBC % 0 Sodium 135 L Potassium 4.9 Chloride 104 Carbon Dioxide 23.0 Anion Gap 8 BUN 41 H Creatinine 1.63 H Estim Creat Clear Calc 31.26 Est GFR (MDRD) Af Amer 39 L Est GFR (MDRD) Non-Af 33 L BUN/Creatinine Ratio 25.2 H Glucose 104 Calcium 9.1 Troponin I 0.030 B-Natriuretic Peptide 2549.2 H - Rhythm Strip Rhythm Strip: Sinus Rhythm Rate: 80 Ectopy: None - EKG Initial EKG Interpretation: Sinus Rhythm, No Acute Injury Pattern, Inverted T-Waves - laterally, S-T Depression - 1mm or less, coexistant w/ Twave inversions, c/w LV strain; no recip ST elevation to suggest STEMI Prior: Unchanged Treatment - Dyspnea: Oxygen - Medical Decision Making Patient has prerenal azotemia, which could be a result of CHF exacerbation or being dry. Her chest x-ray does not show any signs of congestive heart failure, signifying that she may actually be dry. She has some mild renal insufficiency there, it is a little worse than usual but it has been present for a while. Her EKG is unchanged, showing signs of left heart strain. She has an echo in April that shows a 20% EF and global hypokinesis of the left ventricle. Discussed with Dr. Huang, he advises inpatient evaluation and treatment given her cardiac fragility, and difficulty finding a balance sometimes between dry and wet. Patient is comfortable with this plan. Given that her pressure is borderline, and her vital signs are stable otherwise, I chose to hold off on treating her with diuretics, she will be offered an albuterol treatment if she is dyspneic at rest at this time. ED Disposition - Plan for ED Patient: Disposition: Acute Care Hospital [facility] Diagnosis: Respiratory insufficiency, Chronic systolic (congestive) heart failure, Renal insufficiency, Failure of outpatient treatment Referrals: Minerva Martin MD [Primary Care Provider] -
[2019-08-13 12:03] LABS: Absolute Lymphocyte Count 1.07 X10^3/uL (0.83-4.51); Absolute Neutrophil Count 7.3 X10^3/uL (2.0-7.7); Basophil# 0.03 X10^3/uL; Basophil% 0.3 % (0-1); Hematocrit 34.3 % (37-47); Hemoglobin 10.8 g/dL (12.0-15.0); Lymphocyte # 1.07 X10^3/ul (4.0); Lymphocyte % 10.7 % (19-41); Mean Corp Hgb Conc 31.5 g/dL (32-36); Mean Corpuscular Volume 95.3 fL (81-99); Mean Platelet Vol. 9.7 fl (6.2-12.0); Monocyte# 1.42 X10^3/uL; Monocyte% 14.2 % (0-10); NRBC Flagged by Analyzer 0 % (0-5); Neutrophil # 7.34 X10^3/uL (2.7-7.7); Neutrophil % 73.1 % (47-70); Platelet Count 190 K/mm3 (150-450); RBC Distribution Width CV 16.9 % (11.6-14.6); RBC Distribution Width SD 57.7 fl (35.1-43.9)
[2019-08-13] MEDS: Albuterol 2.5 MG/3 ML VIAL.NEB. INHALATION (12:08)
[2019-08-13 12:18] LABS: Anion Gap 8 (5-15); BUN 41 mg/dL (7-18); BUN/Creat Ratio 25.2 RATIO (10-20); Calcium,Total 9.1 mg/dL (8.5-10.1); Chloride 104 mmol/L (98-107); Creatinine, Serum 1.63 mg/dL (0.55-1.02); EST Glomerular Filtration Rate 33 mL/min (>60); Est Glom Filt Rate - Afr Amer 39 mL/min (>60); Estimated Creatinine Clearance 31.26 ml/min; Glucose 104 mg/dL (74-106); Potassium 4.9 mmol/L (3.5-5.1); Sodium Level 135 mmol/L (136-145)
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
--- NOTE | 2019-08-13 13:34 | NURSING ---
PCU WHITE RESP INSUFFICIENCY, CHF, RENAL INSUFFICIENCY, FAILURE OF OUTPT [place]
[2019-08-13] MEDS: Ipratropium/Albuterol Sulfate 3 ML AMPUL.NEB INHALATION ×2 (14:35→19:14)
[2019-08-13] MEDS: guaiFENesin 10 ML UDC (200MG/10ML) 20 ML PO ×2 (15:53→20:16)
[2019-08-13] MEDS: MethylPREDNISolone 125 MG/2 ML Vial IV (15:56)
[2019-08-13] MEDS: 0.9% Normal Saline 1,000 ML 60 ML IV (16:17)
[2019-08-13 16:30] LABS: Magnesium 2.5 mg/dL (1.6-2.6); Thyroid Stim Hormone (TSH) 1.71 uIU/mL (0.358-3.74)
[2019-08-13] MEDS: Acetaminophen 325 MG Tablet 650 MG PO (16:59)
[2019-08-13] MEDS: Benzonatate 100 MG Capsule PO ×2 (17:03→22:48)
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
[2019-08-13] MEDS: Furosemide 100 MG/10 ML Vial 60 MG IV (18:33)
[2019-08-13] MEDS: Furosemide 500 MG in Empty Viaflex 50 mL 1 EACH CONT INF (18:37)
[2019-08-13] MEDS: BENZOCAINE/MENTHOL 1 LOZENGE MUCOUS MEM ×2 (20:18→22:49)
[2019-08-13] MEDS: Carvedilol 6.25 MG Tablet PO (22:48)
[2019-08-13] MEDS: Levothyroxine 88 MCG Tablet PO (22:48)
[2019-08-13] MEDS: Pravastatin 40 MG Tablet PO (22:48)
[2019-08-13] MEDS: Gabapentin 100 MG Capsule PO (22:48)
[2019-08-13] MEDS: MELATONIN 3 MG TABLET PO (22:49)
[2019-08-13] MEDS: HYDROcodone Bitartrate/Apap 5/325 Tablet PO (22:49)
[2019-08-13] MEDS: APIXABAN 2.5 MG TABLET PO (22:49)
[2019-08-13] MEDS: Amitriptyline 25 MG Tablet 50 MG PO (22:50)
[2019-08-13] MEDS: BRIMONIDINE 0.15% 5 ML Bottle 1 DRP EACH EYE (22:50)
[2019-08-14] VITALS (12 sets, daily range): BP systolic 92–103; BP diastolic 61–66; PULSE 74–108; RESP 16–20; TEMP 36.4–37; O2SAT 94–97
--- NOTE | 2019-08-14 05:55 | EKG12_ITS ---
Test Reason : AM Blood Pressure : / mmHG Vent. Rate : 085 BPM Atrial Rate : 079 BPM P-R Int : 214 ms QRS Dur : 142 ms QT Int : 448 ms P-R-T Axes : 084 -07 160 degrees QTc Int : 533 ms Sinus rhythm with occasional PVCs Non-specific intra-ventricular conduction block Abnormal ECG Confirmed by PATRICIA TIRADO, TRISTEN ([id number]), film editor supervisor CAROLEE MARIEE ([id number] on 08/18/2019 11:35:21 AM Referred By: Afshan Joaquin Confirmed By:TRISTEN GOMEZ MD
--- NOTE | 2019-08-14 06:31 | PN.CARD_ITS ---
Subjectve: Patient seen and evaluated. Appears to be breathing better. Lying flatter in bed. Objective: Vital Signs Temp Pulse Resp BP Pulse Ox 98.6 F 98 18 102/65 97 08/14/19 03:47 08/14/19 03:47 08/14/19 03:47 08/14/19 03:47 08/14/19 03:47 Oxygen Flow Rate (L/min) 2 Oxygen Delivery Method Room Air Weight: 171 lb 11.841 oz Body Mass Index (BMI) 24.5 Finger Stick Blood Glucose 146 Intake and Output for Last 24 Hours 08/12/19 08/13/19 08/14/19 23:59 23:59 23:59 Intake Total 1161.35 / 1161.35 Output Total 300 / 300 Balance 861.35 / 861.35 General: Awake, Alert, Oriented x 3 HEENT: PERRL, EOMI, Sclera Non Icteric Neck: Supple, Good ROM, No Lymph Node Enlargement Lungs: Diminished David Bases Cardiovascular: Regular Rhythm, Normal S1, Normal S2, No Murmurs, No Rubs, No Gallops Vascular: No Carotid Bruits, Normal Femoral Pulses, Normal Radial Pulses, Normal Dorsalis Pedal Pulse, Normal Posterior Tibial Pulses Abdomen: Bowel Sounds Present, Soft, Non Tender, No HSM, No Organomegaly Extremities: No Cyanosis, No Clubbing, No edema Musculoskeletal: No Erythema Skin: No Rashes Lymphatic: No Lymph Node Enlargement Neurological: No Focal Motor or Sensory Deficit Psych/Mental Status: Appropriate 08/13/19 11:25: WBC 10.0, RBC 3.60 L, Hgb 10.8 L, Hct 34.3 L, MCV 95.3, MCH 30.0, MCHC 31.5 L, Plt Count 190, MPV 9.7, Immature Gran % (Auto) 0.700, Neut % (Auto) 73.1 H, Lymph % (Auto) 10.7 L, [place] % (Auto) 14.2 H, Eos % (Auto) 1.0, Baso % (Auto) 0.3, Absolute Neuts (auto) 7.3, Nucleated RBC % 0 08/13/19 11:25: Sodium 135 L, Potassium 4.9, Chloride 104, Carbon Dioxide 23.0, Anion Gap 8, BUN 41 H, Creatinine 1.63 H, Est GFR (MDRD) Af Amer 39 L, Est GFR (MDRD) Non-Af 33 L, BUN/Creatinine Ratio 25.2 H, Glucose 104, Calcium 9.1, Troponin I 0.030 08/13/19 11:25: B-Natriuretic Peptide 2549.2 H 08/13/19 15:55: Magnesium 2.5, Troponin I 0.018 08/13/19 19:00: Troponin I 0.022 Rhythm: EKG: ECHO: Stress Test: Cardiac Cath: PCI: CT Surgery: Holter monitor: EPS: PPM: CXR: Chest CT Scan: Medical Necessity - Tobacco Use Smoking Status: Never smoker Tobacco Use: Non-smoker Assessment/Plan 1. Shortness of breath * Patient presents with progressive shortness of breath cough elevated BT MANAGER OF TAX elevated JVD and bilateral rales. With her known ejection fraction of 20% and her mildly elevated pulmonary pressures my suspicion is that this is due to progressive heart failure. * She does have an elevated B UN and creatinine and this will be rechecked this morning. * My recommendation will be attempt to diurese her with intravenous Lasix and see how she does. Recommendation of her to continue this throughout today Friday, August 14 * I would also like to reduce the dose of her carvedilol and see whether we can improve her blood pressure some. Depending on how her renal function progresses she may also be a candidate for Entresto at some point. * 2. Left ventricular systolic dysfunction * She has a history of known nonischemic cardiomyopathy and will continue with her beta-braden and see whether she may benefit from the addition of Entresto. * Will try and titrate her diuretics * 3. Valvular heart disease * She does have a prosthetic mitral valve which was evaluated in October of this year and it appears to be functioning well. * 4. Status post ICD implantation * She does have an ICD implanted and it appears to be functioning well she c ontinues to follow-up in our [facility] clinic * 5. Paroxysmal atrial fibrillation * She does have evidence of paroxysmal atrial fibrillation. At this time she has not had any recurrence of the above. My recommendation is for her to continue the current anticoagulation regimen. * * Thank you for allowing me to participate in the care of your patient. Please don't hesitate to call if any issues arise
[2019-08-14 06:57] LABS: Absolute Lymphocyte Count 0.57 X10^3/uL (0.83-4.51); Absolute Neutrophil Count 7.5 X10^3/uL (2.0-7.7); Basophil# 0.01 X10^3/uL; Basophil% 0.1 % (0-1); Hematocrit 35.9 % (37-47); Hemoglobin 11.2 g/dL (12.0-15.0); Lymphocyte # 0.57 X10^3/ul (4.0); Lymphocyte % 6.9 % (19-41); Mean Corp Hgb Conc 31.2 g/dL (32-36); Mean Corpuscular Hgb 29.2 pg (27.0-32.0); Mean Corpuscular Volume 93.5 fL (81-99); Mean Platelet Vol. 9.8 fl (6.2-12.0); Monocyte# 0.15 X10^3/uL; Monocyte% 1.8 % (0-10); NRBC Flagged by Analyzer 0 % (0-5); Neutrophil # 7.48 X10^3/uL (2.7-7.7); Neutrophil % 90.1 % (47-70); POSITIVE DIFFERENTIAL YES; Platelet Count 194 K/mm3 (150-450); RBC Distribution Width CV 16.8 % (11.6-14.6); RBC Distribution Width SD 55.9 fl (35.1-43.9); Red Blood Count 3.84 M/mm3 (4.2-5.4); White Blood Count 8.3 K/mm3 (4.4-11.0)
[2019-08-14 07:05] LABS: Differential Indicated SCAN CRITERIA MET
[2019-08-14] MEDS: Ipratropium/Albuterol Sulfate 3 ML AMPUL.NEB INHALATION ×4 (07:34→19:46)
[2019-08-14 07:37] LABS: Anion Gap 10 (5-15); BUN 38 mg/dL (7-18); BUN/Creat Ratio 30.4 RATIO (10-20); Calcium,Total 8.5 mg/dL (8.5-10.1); Chloride 101 mmol/L (98-107); Cholesterol 75 mg/dL (200); Creatinine, Serum 1.25 mg/dL (0.55-1.02); EST Glomerular Filtration Rate 44 mL/min (>60); Est Glom Filt Rate - Afr Amer 53 mL/min (>60); Estimated Creatinine Clearance 40.76 ml/min; Glucose 154 mg/dL (74-106); High Density Lipoprotein 29 mg/dL; Magnesium 2.3 mg/dL (1.6-2.6); Potassium 3.5 mmol/L (3.5-5.1); Sodium Level 135 mmol/L (136-145); Triglycerides 65 mg/dL; Very Low Density Lipoprotein 13 mg/dL (5-40)
[2019-08-14] MEDS: Aspirin 81 MG TAB.CHEW PO (09:15)
[2019-08-14] MEDS: Carvedilol 6.25 MG Tablet PO (09:15)
[2019-08-14] MEDS: Citalopram 20 MG Tablet PO (09:15)
[2019-08-14] MEDS: APIXABAN 2.5 MG TABLET PO ×2 (09:15→21:51)
[2019-08-14] MEDS: guaiFENesin 10 ML UDC (200MG/10ML) 20 ML PO ×2 (09:15→13:32)
[2019-08-14] MEDS: Benzonatate 100 MG Capsule PO ×2 (09:15→21:51)
[2019-08-14] MEDS: BRIMONIDINE 0.15% 5 ML Bottle 1 DRP EACH EYE ×2 (09:16→21:50)
--- NOTE | 2019-08-14 09:47 | PCM.PN.HOSP ---
Patient Problems: Active and Suspected Problems (Last Reviewed 04/15/19 @ 05:15 by Chavez Tubbs MD) Respiratory insufficiency (Acute) Failure of outpatient treatment (Acute) Reason for Visit: Follow-up acute congestive heart failure Subjective: Patient is a 79-year-old lady with history of congestive heart failure with decreased ejection fraction EF of 20% presented with progressive shortness of breath. Patient had apparently been managed as outpatient with IV Lasix without much improvement. Objective: GENERAL: cooperative HEENT: Atraumatic; EYES; Anicteric, Normal Conjunctiva NECK; supple, normal thyroid, RESPIRATORY: Diminished to auscultation CARDIOVASCULAR: Regular S1 S2, GI: soft, normoactive bowel sounds, : No Renal angle tenderness; EXTREMITIES: No edema, no clubbing, MUSCULOSKELETAL: no muscle waisting NEURO: Awake; no lateralizing signs. SKIN: No Rash PSYCH; Flat affect Vitals/I&O's: Vital Signs Temp Pulse Resp BP Pulse Ox 97.8 F 108 H 18 103/61 94 08/14/19 09:15 08/14/19 09:15 08/14/19 09:15 08/14/19 09:15 08/14/19 09:15 Oxygen Flow Rate (L/min) 2 Oxygen Delivery Method Room Air Weight: 77.9 kg Body Mass Index (BMI) 24.5 Finger Stick Blood Glucose 146 Intake and Output for Last 24 Hours 08/12/19 08/13/19 08/14/19 23:59 23:59 23:59 Intake Total 1161.35 / 1161.35 120 / 120 Output Total 300 / 300 600 / 600 Balance 861.35 / 861.35 -480 / -480 Microbiology Past 72 Hours 08/13/19 14:20 Mucosa - Nose Rapid RSV (DFA) - Final 08/13/19 14:20 Mucosa - Nose Influenza Types A,B Direct FA (SUDARSHAN) - Final Laboratory Results 08/13/19 11:25: WBC 10.0, RBC 3.60 L, Hgb 10.8 L, Hct 34.3 L, MCV 95.3, MCH 30.0, MCHC 31.5 L, RDW Std Deviation 57.7 H, RDW Coeff of Jackie 16.9 H, Plt Count 190, MPV 9.7, Immature Gran % (Auto) 0.700, Neut % (Auto) 73.1 H, Lymph % (Auto) 10.7 L, [place] % (Auto) 14.2 H, Eos % (Auto) 1.0, Baso % (Auto) 0.3, Absolute Neuts (auto) 7.3, Absolute Lymphs (auto) 1.07, Nucleated RBC % 0 08/13/19 11:25: Sodium 135 L, Potassium 4.9, Chloride 104, Carbon Dioxide 23.0, Anion Gap 8, BUN 41 H, Creatinine 1.63 H, Estim Creat Clear Calc 31.26, Est GFR (MDRD) Af Amer 39 L, Est GFR (MDRD) Non-Af 33 L, BUN/Creatinine Ratio 25.2 H, Glucose 104, Calcium 9.1, Troponin I 0.030 08/13/19 11:25: B-Natriuretic Peptide 2549.2 H 08/13/19 15:55: Magnesium 2.5, Troponin I 0.018, TSH 1.71 08/13/19 19:00: Troponin I 0.022 08/14/19 05:57: WBC 8.3, RBC 3.84 L, Hgb 11.2 L, Hct 35.9 L, MCV 93.5, MCH 29.2, MCHC 31.2 L, RDW Std Deviation 55.9 H, RDW Coeff of Jackie 16.8 H, Plt Count 194, MPV 9.8, Immature Gran % (Auto) 1.100 H, Neut % (Auto) 90.1 H, Lymph % (Auto) 6.9 L, [place] % (Auto) 1.8, Eos % (Auto) 0.0, Baso % (Auto) 0.1, Absolute Neuts (auto) 7.5, Absolute Lymphs (auto) 0.57 L, Nucleated RBC % 0 08/14/19 05:57: Sodium 135 L, Potassium 3.5, Chloride 101, Carbon Dioxide 24.0, Anion Gap 10, BUN 38 H, Creatinine 1.25 H, Estim Creat Clear Calc 40.76, Est GFR (MDRD) Af Amer 53 L, Est GFR (MDRD) Non-Af 44 L, BUN/Creatinine Ratio 30.4 H, Glucose 154 H, Calcium 8.5, Magnesium 2.3, Triglycerides 65, Cholesterol 75, LDL Cholesterol 33, VLDL Cholesterol 13, HDL Cholesterol 29 L Current Medications Acetaminophen (Tylenol) 650 mg PO Q6H PRN PRN PRN Reason: Non-cardiac pain (4-1010) Last Admin: 08/13/19 16:59 Dose: 650 mg Documented by: Hydrocodone Bitart/Acetaminophen ([place] 5mg-325mg) 1 - 2 tablet PO Q6H PRN PRN PRN Reason: Pain Score 4-1010 Last Admin: 08/13/19 22:49 Dose: 1 tablet Documented by: Al Hydroxide/Mg Hydroxide (Mylanta Ii) 15 - 30 ml PO Q4H PRN PRN PRN Reason: INDIGESTION Albuterol Sulfate (Ventolin Aerosols) 2.5 mg INHALATION Q2H PRN PRN PRN Reason: dyspnea, wheezing Albuterol/Ipratropium (Duoneb) 3 ml INHALATION Q4HWA.RT [facility] Last Admin: 08/14/19 07:34 Dose: 3 ml Documented by: Amitriptyline HCl (Elavil) 50 mg PO QHS [facility] Last Admin: 08/13/19 22:50 Dose: 50 mg Documented by: Apixaban (Eliquis) 2.5 mg PO BID [facility] Last Admin: 08/14/19 09:15 Dose: 2.5 mg Documented by: Aspirin (Aspirin, Baby) 81 mg PO DAILY@0800 [facility] Last Admin: 08/14/19 09:15 Dose: 81 mg Documented by: Benzonatate (Tessalon Perle) 100 mg PO TID PRN PRN Reason: COUGH Last Admin: 08/14/19 09:15 Dose: 100 mg Documented by: Brimonidine Tartrate (Alphagan P 0.15%) 1 drop EACH EYE BID [facility] Last Admin: 08/14/19 09:16 Dose: 1 drop Documented by: Carvedilol (Coreg) 6.25 mg PO BID [facility] Last Admin: 08/14/19 09:15 Dose: 6.25 mg Documented by: Citalopram Hydrobromide (Celexa) 20 mg PO DAILY [facility] Last Admin: 08/14/19 09:15 Dose: 20 mg Documented by: Dextrose (D50w Syringe) 0 gm IV X1 PRN; Protocol PRN Reason: Hypoglycemia Fluticasone Propionate (Flonase Nasal [place]) 2 spray NASAL DAILY PRN PRN PRN Reason: CONGESTION Gabapentin (Neurontin) 100 mg PO QHS [facility] Last Admin: 08/13/19 22:48 Dose: 100 mg Documented by: Glucagon () 1 mg IM .X1 PRN PRN Reason: Hypoglycemia Guaifenesin (Robitussin) 20 ml PO Q4H PRN PRN PRN Reason: COUGH Last Admin: 08/14/19 09:15 Dose: 20 ml Documented by: Hydralazine HCl (Apresoline Iv) 10 mg IV Q4H PRN PRN PRN Reason: SBP > 160 Furosemide 500 mg/ N/A 50 mls @ 1 mls/hr CONT INF .Q50H [facility] Last Infusion: 08/13/19 23:58 Dose: 10 mg/hr, 1 mls/hr Documented by: [facility]) [facility] Last Admin: 08/13/19 22:48 Dose: 88 mcg Documented by: Magnesium Hydroxide (Milk Of Magnesia) 30 ml PO DAILY PRN PRN Reason: Constipation Melatonin (Melatonin) 3 mg PO QHS PRN PRN PRN Reason: INSOMNIA Last Admin: 08/13/19 22:49 Dose: 3 mg Documented by: Methylprednisolone (Solu-Medrol) 40 mg IV Q8 [facility] Last Admin: 08/14/19 05:40 Dose: 40 mg Documented by: Morphine Sulfate () 1 - 2 mg IV Q4H PRN PRN PRN Reason: Pain Score 1-10/10 Nitroglycerin (Nitrostat) 0.4 mg SUBLINGUAL Q5M PRN PRN Reason: CARDIAC/CHEST PAIN Ondansetron HCl (Zofran) 4 mg IV Q8H PRN PRN PRN Reason: NAUSEA/VOMITING Potassium Chloride (K-Dur) 20 meq PO BIDCM [facility] Last Admin: 08/14/19 09:15 Dose: 20 meq Documented by: Pravastatin Sodium (Pravachol) 40 mg PO QHS [facility] Last Admin: 08/13/19 22:48 Dose: 40 mg Documented by: Psyllium Hydrophilic Mucilloid (Metamucil) 1 packet PO DAILY PRN PRN PRN Reason: Constipation Senna/Docusate Sodium (Senokot-S, Shahla-Colace) 2 tablet PO BID PRN PRN PRN Reason: Constipation Sodium Chloride () 10 - 40 ml IV UD PRN PRN Reason: SALINE FLUSH Throat Lozenges (Cepacol Sore Throat Lozenge) 1 lozenge MUCOUS MEM Q2H PRN PRN PRN Reason: Sore Throat/Cough Last Admin: 08/13/19 22:49 Dose: 1 lozenge Documented by: STROKE Vital Signs/Narrative: Vital Signs Temp Pulse Resp BP Pulse Ox 08/14/19 09:15 97.8 F 108 H 18 103/61 94 08/14/19 07:34 88 20 H 94 08/14/19 07:00 74 Medical Necessity - Tobacco Use Smoking Status: Never smoker Tobacco Use: Non-smoker Assessment/Plan All Active Problems (Last Reviewed 04/15/19 @ 05:15 by Chavez Tubbs MD) Respiratory insufficiency (Acute) Failure of outpatient treatment (Acute) Acute bronchitis (Acute) Viral syndrome (Acute) Acute exacerbation of COPD with asthma (Acute) History of cataract surgery (Resolved) History of hysterectomy (Resolved) History of bilateral knee replacement (Resolved) History of bilateral hip replacements (Resolved) Status post skin graft (Resolved) Community acquired pneumonia (Acute) CHF (congestive heart failure) (Acute) Acute respiratory failure with hypoxia (Acute) Heart failure (Acute) Hypotension (Acute) SAY (acute kidney injury) (Acute) S/P implantation of automatic cardioverter/defibrillator (AICD) (Resolved) Concussion syndrome (Resolved) Patient is a 79-year-old lady with history of congestive heart failure with decreased ejection fraction EF of 20% presented with progressive shortness of breath. Patient had apparently been managed as outpatient with IV Lasix without much improvement. 1. Acute on chronic congestive heart failure with decreased ejection fraction ?Patient admitted to telemetry for continuous telemetry monitoring, placed on fluid restriction, strict input and output, diuretics and consultation placed to cardiology patient was seen by Dr. Glaser's notes and recommendations reviewed. ?Patient still remains significantly symptomatic did continue with Lasix, continuous telemetry monitoring as well as serial BMP to monitor her electrolyte 2. History of ventricular arrhythmia as well as cardiomyopathy ?Status post AICD placement 3. Obstructive sleep apnea `patient uses CPAP at night 4. Valvular heart disease ~Status post bioprosthetic mitral valve 5. Paroxysmal atrial fibrillation status post cardioversion in November 2018 6. Dyslipidemia ~patient is on statin therapy, continued at home dose 7. Hypothyroidism ~patient is on levothyroxine home dose continued 8. Acute kidney injury ~Secondary to cardiorenal syndrome patient kidney function improving with diuresis 9. Chronic kidney disease stage III ?patient presented with acute kidney injury kidney function back to baseline 10. History of DVT ~ 07/27 L Iliac DVT.s/p IVC Filter. 11. Restrictive lung disease ~ aerosol treatment as needed 12. Depression with anxiety ?patient is on SSRI did continue 13. DVT prophylaxis ?Patient is on apixaban 14. Physical deconditioning ~requested for PT OT eval and treatment and adoption social worker to assist with discharge planning Code Visit Inpatient E&M: 54707 Subs Hosp L3
[2019-08-14] MEDS: 0.9% Saline Lock 10 ML Syringe IV ×2 (13:27→21:48)
[2019-08-14] MEDS: HYDROcodone Bitartrate/Apap 5/325 Tablet PO (13:32)
[2019-08-14] MEDS: BENZOCAINE/MENTHOL 1 LOZENGE MUCOUS MEM (13:33)
[2019-08-14] MEDS: Furosemide 500 MG in Empty Viaflex 50 mL 1 EACH CONT INF (18:35)
[2019-08-14] MEDS: Acetaminophen 325 MG Tablet 650 MG PO (18:40)
[2019-08-14] MEDS: Gabapentin 100 MG Capsule PO (21:51)
[2019-08-14] MEDS: Senna/Docusate Sodium 1 Tablet 2 TABLET PO (21:51)
[2019-08-14] MEDS: MELATONIN 3 MG TABLET PO (21:51)
[2019-08-14] MEDS: Pravastatin 40 MG Tablet PO (21:51)
[2019-08-14] MEDS: Levothyroxine 88 MCG Tablet PO (21:51)
[2019-08-14] MEDS: Amitriptyline 25 MG Tablet 50 MG PO (21:51)
[2019-08-15] VITALS (14 sets, daily range): BP systolic 90–116; BP diastolic 61–86; PULSE 82–119; RESP 16–20; TEMP 36.3–36.8; O2SAT 94–98
[2019-08-15] MEDS: 0.9% Saline Lock 10 ML Syringe IV ×2 (05:11→05:12)
[2019-08-15] MEDS: Ipratropium/Albuterol Sulfate 3 ML AMPUL.NEB INHALATION ×4 (06:54→19:16)
--- NOTE | 2019-08-15 08:06 | PN_ITS ---
Patient Problems: Active and Suspected Problems (Last Reviewed 04/15/19 @ 05:15 by Chavez Tubbs MD) Respiratory insufficiency (Acute) Failure of outpatient treatment (Acute) Reason for Visit: Follow-up CHF. Subjective: Patient is a 79-year-old lady with history of congestive heart failure with decreased ejection fraction EF of 20% presented with progressive shortness of breath. Patient had apparently been managed as outpatient with IV Lasix without much improvement. 08/15/2019 patient seen still has persistent cough is cardiology demonstrated presence of bibasilar crackles. Objective: GENERAL: cooperative HEENT: Atraumatic; EYES; Anicteric, Normal Conjunctiva NECK; supple, normal thyroid, RESPIRATORY: Diminished to auscultation CARDIOVASCULAR: Regular S1 S2, GI: soft, normoactive bowel sounds, : No Renal angle tenderness; EXTREMITIES: No edema, no clubbing, MUSCULOSKELETAL: no muscle waisting NEURO: Awake; no lateralizing signs. SKIN: No Rash PSYCH; Flat affect Vitals/I&O's: Vital Signs Temp Pulse Resp BP Pulse Ox 98.2 F 90 18 94/62 97 08/15/19 03:30 08/15/19 03:30 08/15/19 03:30 08/15/19 03:30 08/15/19 03:30 Oxygen Flow Rate (L/min) 2 Oxygen Delivery Method CPAP Weight: 77.7 kg Body Mass Index (BMI) 24.5 Finger Stick Blood Glucose 146 Intake and Output for Last 24 Hours 08/13/19 08/14/19 08/15/19 23:59 23:59 23:59 Intake Total 1161.35 / 1161.35 978.62 / 978.62 Output Total 300 / 300 800 / 800 Balance 861.35 / 861.35 178.62 / 178.62 Microbiology Past 72 Hours 08/13/19 14:20 Mucosa - Nose Rapid RSV (DFA) - Final 08/13/19 14:20 Mucosa - Nose Influenza Types A,B Direct FA (SUDARSHAN) - Final Current Medications Acetaminophen (Tylenol) 650 mg PO Q6H PRN PRN PRN Reason: Non-cardiac pain (4-1010) Last Admin: 08/14/19 18:40 Dose: 650 mg Documented by: Hydrocodone Bitart/Acetaminophen ([place] 5mg-325mg) 1 - 2 tablet PO Q6H PRN PRN PRN Reason: Pain Score 4-10/10 Last Admin: 08/14/19 13:32 Dose: 1 tablet Documented by: Al Hydroxide/Mg Hydroxide (Mylanta Ii) 15 - 30 ml PO Q4H PRN PRN PRN Reason: INDIGESTION Albuterol Sulfate (Ventolin Aerosols) 2.5 mg INHALATION Q2H PRN PRN PRN Reason: dyspnea, wheezing Albuterol/Ipratropium (Duoneb) 3 ml INHALATION Q4HWA.RT [facility] Last Admin: 08/15/19 06:54 Dose: 3 ml Documented by: Amitriptyline HCl (Elavil) 50 mg PO QHS [facility] Last Admin: 08/14/19 21:51 Dose: 50 mg Documented by: Apixaban (Eliquis) 2.5 mg PO BID [facility] Last Admin: 08/14/19 21:51 Dose: 2.5 mg Documented by: Aspirin (Aspirin, Baby) 81 mg PO DAILY@0800 [facility] Last Admin: 08/14/19 09:15 Dose: 81 mg Documented by: Benzonatate (Tessalon Perle) 100 mg PO TID PRN PRN Reason: COUGH Last Admin: 08/14/19 21:51 Dose: 100 mg Documented by: Brimonidine Tartrate (Alphagan P 0.15%) 1 drop EACH EYE BID [facility] Last Admin: 08/14/19 21:50 Dose: 1 drop Documented by: Carvedilol (Coreg) 6.25 mg PO BID [facility] Last Admin: 08/14/19 21:52 Dose: Not Given Documented by: Citalopram Hydrobromide (Celexa) 20 mg PO DAILY [facility] Last Admin: 08/14/19 09:15 Dose: 20 mg Documented by: Dextrose (D50w Syringe) 0 gm IV X1 PRN; Protocol PRN Reason: Hypoglycemia Fluticasone Propionate (Flonase Nasal [place]) 2 spray NASAL DAILY PRN PRN PRN Reason: CONGESTION Gabapentin (Neurontin) 100 mg PO QHS [facility] Last Admin: 08/14/19 21:51 Dose: 100 mg Documented by: Glucagon () 1 mg IM .X1 PRN PRN Reason: Hypoglycemia Guaifenesin (Robitussin) 20 ml PO Q4H PRN PRN PRN Reason: COUGH Last Admin: 08/14/19 13:32 Dose: 20 ml Documented by: Hydralazine HCl (Apresoline Iv) 10 mg IV Q4H PRN PRN PRN Reason: SBP > 160 Furosemide 500 mg/ N/A 50 mls @ 1 mls/hr CONT INF .Q50H [facility] Last Admin: 08/14/19 18:35 Dose: 10 mg/hr, 1 mls/hr Documented by: Levothyroxine Sodium (Synthroid) 88 mcg PO QHS [facility] Last Admin: 08/14/19 21:51 Dose: 88 mcg Documented by: Magnesium Hydroxide (Milk Of Magnesia) 30 ml PO DAILY PRN PRN Reason: Constipation Melatonin (Melatonin) 3 mg PO QHS PRN PRN PRN Reason: INSOMNIA Last Admin: 08/14/19 21:51 Dose: 3 mg Documented by: Methylprednisolone (Solu-Medrol) 40 mg IV Q8 [facility] Last Admin: 08/15/19 05:11 Dose: 40 mg Documented by: Morphine Sulfate () 1 - 2 mg IV Q4H PRN PRN PRN Reason: Pain Score 1-10/10 Nitroglycerin (Nitrostat) 0.4 mg SUBLINGUAL Q5M PRN PRN Reason: CARDIAC/CHEST PAIN Ondansetron HCl (Zofran) 4 mg IV Q8H PRN PRN PRN Reason: NAUSEA/VOMITING Pot[facility] ([facility] Last Admin: 08/14/19 16:58 Dose: 20 meq Documented by: Pravastatin Sodium (Pravachol) 40 mg PO QHS [facility] Last Admin: 08/14/19 21:51 Dose: 40 mg Documented by: Psyllium Hydrophilic Mucilloid (Metamucil) 1 packet PO DAILY PRN PRN PRN Reason: Constipation Senna/Docusate Sodium (Senokot-S, Shahla-Colace) 2 tablet PO BID PRN PRN PRN Reason: Constipation Last Admin: 08/14/19 21:51 Dose: 2 tablet Documented by: Sodium Chloride () 10 - 40 ml IV UD PRN PRN Reason: SALINE FLUSH Last Admin: 08/15/19 05:12 Dose: 10 ml Documented by: Throat Lozenges (Cepacol Sore Throat Lozenge) 1 lozenge MUCOUS MEM Q2H PRN PRN PRN Reason: Sore Throat/Cough Last Admin: 08/14/19 13:33 Dose: 1 lozenge Documented by: Medical Necessity - Tobacco Use Smoking Status: Never smoker Tobacco Use: Non-smoker Assessment/Plan All Active Problems (Last Reviewed 04/15/19 @ 05:15 by Chavez Tubbs MD) Respiratory insufficiency (Acute) Failure of outpatient treatment (Acute) Acute bronchitis (Acute) Viral syndrome (Acute) Acute exacerbation of COPD with asthma (Acute) History of cataract surgery (Resolved) History of hysterectomy (Resolved) History of bilateral knee replacement (Resolved) History of bilateral hip replacements (Resolved) Status post skin graft (Resolved) Community acquired pneumonia (Acute) CHF (congestive heart failure) (Acute) Acute respiratory failure with hypoxia (Acute) Heart failure (Acute) Hypotension (Acute) SAY (acute kidney injury) (Acute) S/P implantation of automatic cardioverter/defibrillator (AICD) (Resolved) Concussion syndrome (Resolved) Patient is a 79-year-old lady with history of congestive heart failure with decreased ejection fraction EF of 20% presented with progressive shortness of breath. Patient had apparently been managed as outpatient with IV Lasix without much improvement. 1. Acute on chronic congestive heart failure with decreased ejection fraction ?Patient admitted to telemetry for continuous telemetry monitoring, placed on fluid restriction, strict input and output, diuretics and consultation placed to cardiology patient was seen by Dr. Glaser's notes and recommendations reviewed. ?Patient still remains significantly symptomatic did continue with Lasix, continuous telemetry monitoring as well as serial BMP to monitor her electrolyte 08/15/2019: Patient progress has rather been slow need further stay in the hospital with IV diuresis will assess for readiness for discharge on 08/16/2019. 2. History of ventricular arrhythmia as well as cardiomyopathy ?Status post AICD placement 3. Obstructive sleep apnea `patient uses CPAP at night 4. Valvular heart disease ~Status post bioprosthetic mitral valve 5. Paroxysmal atrial fibrillation status post cardioversion in November 2018 6. Dyslipidemia ~patient is on statin therapy, continued at home dose 7. Hypothyroidism ~patient is on levothyroxine home dose continued 8. Acute kidney injury ~Secondary to cardiorenal syndrome patient kidney function improving with diuresis 9. Chronic kidney disease stage III ?patient presented with acute kidney injury kidney function back to baseline 10. History of DVT ~ 12/17 L Iliac DVT.s/p IVC Filter. 11. Restrictive lung disease ~ aerosol treatment as needed 12. Depression with anxiety ?patient is on SSRI did continue 13. DVT prophylaxis ?Patient is on apixaban 14. Physical deconditioning ~requested for PT OT eval and treatment and clinical social worker to assist with discharge planning Code Visit Inpatient E&M: 31963 Subs Hosp L2
[2019-08-15] MEDS: Aspirin 81 MG TAB.CHEW PO (08:14)
[2019-08-15 08:20] LABS: Absolute Lymphocyte Count 0.53 X10^3/uL (0.83-4.51); Absolute Neutrophil Count 14.4 X10^3/uL (2.0-7.7); Basophil# 0.01 X10^3/uL; Basophil% 0.1 % (0-1); Hematocrit 38.1 % (37-47); Hemoglobin 12.1 g/dL (12.0-15.0); Lymphocyte # 0.53 X10^3/ul (4.0); Lymphocyte % 3.4 % (19-41); Mean Corp Hgb Conc 31.8 g/dL (32-36); Mean Corpuscular Hgb 29.8 pg (27.0-32.0); Mean Corpuscular Volume 93.8 fL (81-99); Mean Platelet Vol. 9.7 fl (6.2-12.0); Monocyte# 0.44 X10^3/uL; Monocyte% 2.8 % (0-10); NRBC Flagged by Analyzer 0 % (0-5); Neutrophil # 14.38 X10^3/uL (2.7-7.7); Neutrophil % 93.1 % (47-70); POSITIVE DIFFERENTIAL YES; Platelet Count 248 K/mm3 (150-450); RBC Distribution Width CV 16.6 % (11.6-14.6); RBC Distribution Width SD 55.7 fl (35.1-43.9); Red Blood Count 4.06 M/mm3 (4.2-5.4); White Blood Count 15.5 K/mm3 (4.4-11.0)
[2019-08-15 08:27] LABS: Differential Indicated SCAN CRITERIA MET
--- NOTE | 2019-08-15 08:36 | PN.CARD_ITS ---
Subjectve: Patient seen and evaluated. Appears to be doing well. Still mildly short of breath. Objective: Vital Signs Temp Pulse Resp BP Pulse Ox 97.7 F L 111 H 16 116/86 H 95 08/15/19 08:09 08/15/19 08:09 08/15/19 08:09 08/15/19 08:09 08/15/19 08:09 Oxygen Flow Rate (L/min) 2 Oxygen Delivery Method Room Air Weight: 171 lb 4.787 oz Body Mass Index (BMI) 24.5 Finger Stick Blood Glucose 146 Intake and Output for Last 24 Hours 08/13/19 08/14/19 08/15/19 23:59 23:59 23:59 Intake Total 1161.35 / 1161.35 978.62 / 978.62 Output Total 300 / 300 800 / 800 Balance 861.35 / 861.35 178.62 / 178.62 General: Awake, Alert, Oriented x 3 HEENT: PERRL, EOMI, Sclera Non Icteric Neck: Supple, Good ROM, No Lymph Node Enlargement Lungs: Diminished David Bases, Rales - David Bases Cardiovascular: Regular Rhythm, Normal S1, Normal S2, No Murmurs, No Rubs, No Gallops Vascular: No Carotid Bruits, Normal Femoral Pulses, Normal Radial Pulses, Normal Dorsalis Pedal Pulse, Normal Posterior Tibial Pulses Abdomen: Bowel Sounds Present, Soft, Non Tender, No HSM, No Organomegaly Extremities: No Cyanosis, No Clubbing, No edema Musculoskeletal: No Erythema Skin: No Rashes Lymphatic: No Lymph Node Enlargement Neurological: No Focal Motor or Sensory Deficit Psych/Mental Status: Appropriate 08/15/19 07:47: WBC 15.5 H, RBC 4.06 L, Hgb 12.1, Hct 38.1, MCV 93.8, MCH 29.8, MCHC 31.8 L, Plt Count 248, MPV 9.7, Immature Gran % (Auto) 0.600, Neut % (Auto) 93.1 H, Lymph % (Auto) 3.4 L, [place] % (Auto) 2.8, Eos % (Auto) 0.0, Baso % (Auto) 0.1, Absolute Neuts (auto) 14.4 H, Nucleated RBC % 0 Rhythm: EKG: ECHO: Stress Test: Cardiac Cath: PCI: CT Surgery: Holter monitor: EPS: PPM: CXR: Chest CT Scan: Medical Necessity - Tobacco Use Smoking Status: Never smoker Tobacco Use: Non-smoker Assessment/Plan 1. 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 With her known ejection fraction of 20% and her mildly elevated pulmonary pressures my suspicion is that this is due to progressive heart failure. * She does have an elevated B UN and creatinine and this will be rechecked this morning. * My recommendation will be attempt to diurese her with intravenous Lasix and see how she does. Recommendation of her to continue this throughout today Friday * We will DC steroids 2. Left ventricular systolic dysfunction * She has a history of known nonischemic cardiomyopathy and will continue with her beta-braden and see whether she may benefit from the addition of Entresto. * Will try and titrate her diuretics * 3. Valvular heart disease * She does have a prosthetic mitral valve which was evaluated in October of this year and it appears to be functioning well. * 4. Status post ICD implantation * She does have an ICD implanted and it appears to be functioning well she continues to follow-up in our [facility]acer clinic * 5. Paroxysmal atrial fibrillation * She does have evidence of paroxysmal atrial fibrillation. At this time she has not had any recurrence of the above. My recommendation is for her to continue the current anticoagulation regimen. * * Thank you for allowing me to participate in the care of your patient. Please don't hesitate to call if any issues arise
[2019-08-15 08:45] LABS: Anion Gap 10 (5-15); BUN 49 mg/dL (7-18); BUN/Creat Ratio 33.1 RATIO (10-20); Calcium,Total 8.5 mg/dL (8.5-10.1); Chloride 101 mmol/L (98-107); Creatinine, Serum 1.48 mg/dL (0.55-1.02); EST Glomerular Filtration Rate 36 mL/min (>60); Est Glom Filt Rate - Afr Amer 44 mL/min (>60); Estimated Creatinine Clearance 34.42 ml/min; Glucose 155 mg/dL (74-106); Magnesium 2.4 mg/dL (1.6-2.6); Potassium 3.4 mmol/L (3.5-5.1); Sodium Level 137 mmol/L (136-145)
[2019-08-15] MEDS: APIXABAN 2.5 MG TABLET PO ×2 (10:02→20:55)
[2019-08-15] MEDS: Citalopram 20 MG Tablet PO (10:02)
[2019-08-15] MEDS: BRIMONIDINE 0.15% 5 ML Bottle 1 DRP EACH EYE ×2 (10:03→20:54)
[2019-08-15] MEDS: Acetaminophen 325 MG Tablet 650 MG PO (13:19)
--- NOTE | 2019-08-15 17:51 | NURSING ---
Reviewed and agreed on all charting with Patricia Cook RN
[2019-08-15] MEDS: Furosemide 40 MG/4 ML Vial IV (20:16)
[2019-08-15] MEDS: Carvedilol 6.25 MG Tablet PO (20:55)
[2019-08-15] MEDS: Senna/Docusate Sodium 1 Tablet 2 TABLET PO (20:55)
[2019-08-15] MEDS: Gabapentin 100 MG Capsule PO (20:55)
[2019-08-15] MEDS: Pravastatin 40 MG Tablet PO (20:55)
[2019-08-15] MEDS: Amitriptyline 25 MG Tablet 50 MG PO (20:56)
[2019-08-15] MEDS: Levothyroxine 88 MCG Tablet PO (20:57)
[2019-08-15 21:10] LABS: Bedside Glucose 205 mg/dL (70-110)
[2019-08-15] MEDS: MELATONIN 3 MG TABLET PO (22:01)
[2019-08-16] VITALS (12 sets, daily range): BP systolic 97–103; BP diastolic 56–76; PULSE 58–115; RESP 18–20; TEMP 36.4–37.1; O2SAT 95–99
[2019-08-16 05:35] LABS: Absolute Lymphocyte Count 0.87 X10^3/uL (0.83-4.51); Absolute Neutrophil Count 18.3 X10^3/uL (2.0-7.7); Basophil# 0.02 X10^3/uL; Basophil% 0.1 % (0-1); Hematocrit 39.9 % (37-47); Hemoglobin 12.5 g/dL (12.0-15.0); Lymphocyte # 0.87 X10^3/ul (4.0); Lymphocyte % 4.2 % (19-41); Mean Corp Hgb Conc 31.3 g/dL (32-36); Mean Corpuscular Hgb 29.6 pg (27.0-32.0); Mean Corpuscular Volume 94.3 fL (81-99); Mean Platelet Vol. 9.7 fl (6.2-12.0); Monocyte# 1.39 X10^3/uL; Monocyte% 6.7 % (0-10); NRBC Flagged by Analyzer 0.1 % (0-5); Neutrophil # 18.26 X10^3/uL (2.7-7.7); Neutrophil % 88.2 % (47-70); Platelet Count 255 K/mm3 (150-450); RBC Distribution Width SD 57.5 fl (35.1-43.9); Red Blood Count 4.23 M/mm3 (4.2-5.4); White Blood Count 20.7 K/mm3 (4.4-11.0)
[2019-08-16 05:51] LABS: Anion Gap 8 (5-15); BUN 59 mg/dL (7-18); BUN/Creat Ratio 39.1 RATIO (10-20); Calcium,Total 8.2 mg/dL (8.5-10.1); Chloride 100 mmol/L (98-107); Creatinine, Serum 1.51 mg/dL (0.55-1.02); EST Glomerular Filtration Rate 36 mL/min (>60); Est Glom Filt Rate - Afr Amer 43 mL/min (>60); Estimated Creatinine Clearance 33.74 ml/min; Glucose 118 mg/dL (74-106); Potassium 4.2 mmol/L (3.5-5.1); Sodium Level 134 mmol/L (136-145)
[2019-08-16] MEDS: Ipratropium/Albuterol Sulfate 3 ML AMPUL.NEB INHALATION ×3 (07:09→20:18)
[2019-08-16] MEDS: BRIMONIDINE 0.15% 5 ML Bottle 1 DRP EACH EYE ×2 (08:25→21:42)
[2019-08-16] MEDS: APIXABAN 2.5 MG TABLET PO ×2 (08:25→21:45)
[2019-08-16] MEDS: Citalopram 20 MG Tablet PO (08:25)
[2019-08-16] MEDS: Aspirin 81 MG TAB.CHEW PO (08:25)
--- NOTE | 2019-08-16 10:40 | CASEMGMT ---
RN CM AMMONIA BOX OPERATOR CM to room to meet with patient for initial transition planning/care coordination assessment. RN MICHAEL introduced self and role at [facility]. Pt voices understanding and consents to assessment at this time. Pt resting in bed in no distress at this time. @ bedside. Pt is A/O at this time and answers all questions appropriately. Care providers, pharmacy, and demographics verified at this time. PCP: Dr Martin Specialists: Dr Huang--cardiology, Dr Albarado--pulmonology [facility]acy: [facility] Insurance: [employer] [facility] Prescription Benefit: Yes Living Will/HPOA: Has both LW and Healthcare POA, who is her , Yoshi. Records of both on file @ [facility]. LNOK: , Yoshi. Son, Jourdan Arriaga. Daughter Living Arrangements: Pt live with her in 2-story home. [employer]. 2 steps to enter. Independent with most ADL's. assists with some dressing Transportation: Pt, . DME: States has the following DME: walk-in shower with chair, raised toilet seat, cane, rails/grab bars, walker, rollator, CPAP, nebulizer. Pt states no need for further DME at this time. HHC/SNF: Hx: [facility] in the past. Hx of [facility]. Discussed discharge planning/needs with pt/. Pt agreeable to [facility]. Given list of local C agencies. Pt states 1st choice is [facility]. Call placed to [facility] and referral made. She was made aware anticipate pt discharging today. She states they are able to accept pt. Pt wishes to return home with [facility] and states has no concerns with going home at time of discharge. CM to follow for any further discharge planning/needs. Pt/ voice no further concerns/needs at this time. Advised them to ask for CM if any further questions/concerns/needs arise. They voice understanding. PLAN: Home with [facility]. Shahab ALMANZA RN, CM
--- NOTE | 2019-08-16 12:36 | PCM.PROGNOTE ---
Subjective: Chief complaint: Follow-up after admission for acute on chronic combined systolic and diastolic CHF. Patient seen and examined. No acute events overnight. Today, patient mentioned that he is feeling better, shortness of breath almost gone. She denied any chest pain. She remains on IV Lasix drip. Her vital signs are stable. - Physical Exam Vitals/I&O's: Vital Signs Temp Pulse Resp BP Pulse Ox 98.8 F 95 20 H 102/56 L 97 08/16/19 08:35 08/16/19 08:35 08/16/19 08:35 08/16/19 08:35 08/16/19 08:35 Oxygen Flow Rate (L/min) 2 Oxygen Delivery Method Room Air Weight: 166 lb 3.657 oz Body Mass Index (BMI) 24.5 Finger Stick Blood Glucose 146 Intake and Output for Last 24 Hours 08/14/19 08/15/19 08/16/19 23:59 23:59 23:59 Intake Total 978.62 / 978.62 1006.42 / 1406.42 581.75 / 581.75 Output Total 800 / 800 1200 / 1200 Balance 178.62 / 178.62 1006.42 / 1406.42 -618.25 / -618.25 General: Alert, Oriented x3, Cooperative, No apparent distress HEENT: Atraumatic, PERRLA, EOMI, Normocephalic Oral: Moist Mucosa, No Gingival or Mucosal Lesions/ Ulcerations Neck: Supple, No JVD, Negative Carotid Bruits, Trachea Midline, Thyroid Normal Size and Texture Lungs: Clear to auscultation, No rhonchi, No wheeze, No rales, Diminished Cardiovascular: Regular rate, Regular Rhythm, Normal S1, Normal S2, PMI Normal Abdomen: Bowel Sounds Present, Soft, Non Tender, Non-Distended, No Hepato-splenomegaly Extremities: No clubbing, No cyanosis, No edema Skin: No rashes, No breakdown Lymphatic: No Cervical, Supraclavicular, or Inguinal Adenopathy Neurological: Cranial nerves II-XII grossly intact, Motor Exam 5/5 strength throughout Psych/Mental Status: Normal Affect, Appropriate, Alert and oriented to time, place, person, mood and affect Microbiology Past 72 Hours 08/13/19 14:20 Mucosa - Nose Rapid RSV (DFA) - Final 08/13/19 14:20 Mucosa - Nose Influenza Types A,B Direct FA (SUDARSHAN) - Final Laboratory Results 08/15/19 20:52: POC Glucose 205 H 08/16/19 05:05: WBC 20.7 H, RBC 4.23, Hgb 12.5, Hct 39.9, MCV 94.3, MCH 29.6, MCHC 31.3 L, RDW Std Deviation 57.5 H, RDW Coeff of Jackie 17.0 H, Plt Count 255, MPV 9.7, Immature Gran % (Auto) 0.800, Neut % (Auto) 88.2 H, Lymph % (Auto) 4.2 L, [place] % (Auto) 6.7, Eos % (Auto) 0.0, Baso % (Auto) 0.1, Absolute Neuts (auto) 18.3 H, Absolute Lymphs (auto) 0.87, Nucleated RBC % 0.1 08/16/19 05:05: Sodium 134 L, Potassium 4.2, Chloride 100, Carbon Dioxide 26.0, Anion Gap 8, BUN 59 H, Creatinine 1.51 H, Estim Creat Clear Calc 33.74, Est GFR (MDRD) Af Amer 43 L, Est GFR (MDRD) Non-Af 36 L, BUN/Creatinine Ratio 39.1 H, Glucose 118 H, Calcium 8.2 L Current Medications Acetaminophen (Tylenol) 650 mg PO Q6H PRN PRN PRN Reason: Non-cardiac pain (4-10/10) Last Admin: 08/15/19 13:19 Dose: 650 mg Documented by: Hydrocodone Bitart/Acetaminophen ([place] 5mg-325mg) 1 - 2 tablet PO Q6H PRN PRN PRN Reason: Pain Score 4-10/10 Last Admin: 08/14/19 13:32 Dose: 1 tablet Documented by: Al Hydroxide/Mg Hydroxide (Mylanta Ii) 15 - 30 ml PO Q4H PRN PRN PRN Reason: INDIGESTION Albuterol/Ipratropium (Duoneb) 3 ml INHALATION Q4HWA.RT CHANNING Last Admin: 08/16/19 11:11 Dose: 3 ml Documented by: Amitriptyline HCl (Elavil) 50 mg PO QHS [facility] Last Admin: 08/15/19 20:56 Dose: 50 mg Documented by: Apixaban (Eliquis) 2.5 mg PO BID [facility] Last Admin: 08/16/19 08:25 Dose: 2.5 mg Documented by: Aspirin (Aspirin, Baby) 81 mg PO DAILY@0800 [facility] Last Admin: 08/16/19 08:25 Dose: 81 mg Documented by: Benzonatate (Tessalon Perle) 100 mg PO TID PRN PRN Reason: COUGH Last Admin: 08/14/19 21:51 Dose: 100 mg Documented by: Brimonidine Tartrate (Alphagan P 0.15%) 1 drop EACH EYE BID [facility] Last Admin: 08/16/19 08:25 Dose: 1 drop Documented by: Carvedilol (Coreg) 6.25 mg PO BID [facility] Last Admin: 08/16/19 08:26 Dose: Not Given Documented by: Citalopram Hydrobromide (Celexa) 20 mg PO DAILY [facility] Last Admin: 08/16/19 08:25 Dose: 20 mg Documented by: Dextrose (D50w Syringe) 0 gm IV X1 PRN; Protocol PRN Reason: Hypoglycemia Fluticasone Propionate (Flonase Nasal [place]) 2 spray NASAL DAILY PRN PRN PRN Reason: CONGESTION Gabapentin (Neurontin) 100 mg PO QHS [facility] Last Admin: 08/15/19 20:55 Dose: 100 mg Documented by: Glucagon () 1 mg IM .X1 PRN PRN Reason: Hypoglycemia Guaifenesin (Robitussin) 20 ml PO Q4H PRN PRN PRN Reason: COUGH Last Admin: 08/14/19 13:32 Dose: 20 ml Documented by: Hydralazine HCl (Apresoline Iv) 10 mg IV Q4H PRN PRN PRN Reason: SBP > 160 Furosemide 500 mg/ N/A 50 mls @ 1.5 mls/hr CONT INF .[id number] [facility] Last Admin: 08/16/19 03:29 Dose: Not Given Documented by: Sodium Chloride () 250 mls @ 15 mls/hr IV .[id number] PRN PRN Reason: Saline Flush Last Infusion: 08/16/19 09:00 Dose: 0 mls/hr Documented by: Sodium Chloride () 250 mls @ 15 mls/hr IV .[id number] PRN PRN Reason: Additional IVPB Infusion Levothyroxine Sodium (Synthroid) 88 mcg PO QHS [facility] Last Admin: 08/15/19 20:57 Dose: 88 mcg Documented by: Magnesium Hydroxide (Milk Of Magnesia) 30 ml PO DAILY PRN PRN Reason: Constipation Melatonin (Melatonin) 3 mg PO QHS PRN PRN PRN Reason: INSOMNIA Last Admin: 08/15/19 22:01 Dose: 3 mg Documented by: Morphine Sulfate () 1 - 2 mg IV Q4H PRN PRN PRN Reason: Pain Score 1-10/10 Nitroglycerin (Nitrostat) 0.4 mg SUBLINGUAL Q5M PRN PRN Reason: CARDIAC/CHEST PAIN Ondansetron HCl (Zofran) 4 mg IV Q8H PRN PRN PRN Reason: NAUSEA/VOMITING [facility] Last Admin: 08/16/19 08:25 Dose: 40 meq Documented by: Pravastatin Sodium (Pravachol) 40 mg PO QHS [facility] Last Admin: 08/15/19 20:55 Dose: 40 mg Documented by: Psyllium Hydrophilic Mucilloid (Metamucil) 1 packet PO DAILY PRN PRN PRN Reason: Constipation Senna/Docusate Sodium (Senokot-S, Shahla-Colace) 2 tablet PO BID PRN PRN PRN Reason: Constipation Last Admin: 08/15/19 20:55 Dose: 2 tablet Documented by: Sodium Chloride () 10 - 40 ml IV UD PRN PRN Reason: SALINE FLUSH Last Admin: 08/15/19 05:12 Dose: 10 ml Documented by: Throat Lozenges (Cepacol Sore Throat Lozenge) 1 lozenge MUCOUS MEM Q2H PRN PRN PRN Reason: Sore Throat/Cough Last Admin: 08/14/19 13:33 Dose: 1 lozenge Documented by: Medical Necessity - Tobacco Use Smoking Status: Never smoker Tobacco Use: Non-smoker Assessment/Plan This is a 79 years old female patient presented to the emergency room because of shortness of breath and she was found to have acute on chronic combined systolic and diastolic CHF. #1 acute on chronic combined systolic and diastolic CHF: She is on IV Lasix drip, maintained on Coreg as well. She is not on ANTONIO inhibitor because of chronic kidney disease. She has been diuresing very well, her weight is down by 7 pounds. Symptoms improved, maintaining pulse ox on room air. She had an echocardiogram done on April, that showed ejection fraction of 20%, diastolic dysfunction, pulmonary artery pressure of 45. Cardiology on the case. Her WBC is trending up because she received IV steroids. Plan to DC IV Lasix drip, start oral torsemide according to cardiology, possible DC home tomorrow. #2 paroxysmal atrial fibrillation: Rate is stable, blood pressure stable, continue Coreg for rate control and Eliquis for anticoagulation. #3 stage III chronic kidney disease: Baseline creatinine has been around 1.3 to 1.8 mg/dL. Today's creatinine is 1.51, stable at baseline. #4 status post mitral valve replacement with bioprosthetic valve: Stable. #5 history of ventricular arrhythmia/cardiomyopathy: Status post ICD. Heart rate stable, blood pressure maintained, no evidence of cardiac arrhythmias on EKG. #6 history of DVT: Status post IVC, on Eliquis. #7 hypothyroidism: Stable, continue levothyroxine. #8 anxiety/depression: Continue Celexa. #9 DVT prophylaxis: Continue Eliquis. This note was generated with Gradible (formerly gradsavers) dictation software. It may contain incorrect words, spelling, and punctuation that were not noted in checking the note before signing. Code Visit Inpatient E&M: 53583 Subs Hosp L2
--- NOTE | 2019-08-16 12:54 | PN.CARD_ITS ---
Subjectve: The patient is awake and alert. She continues with a cough. She states her breathing has improved overall since her arrival at the hospital. She has been up and ambulating with OT/PT. Objective: Vital Signs Temp Pulse Resp BP Pulse Ox 98.8 F 110 H 18 102/56 L 97 08/16/19 08:35 08/16/19 11:11 08/16/19 11:11 08/16/19 08:35 08/16/19 08:35 Oxygen Flow Rate (L/min) 2 Oxygen Delivery Method Room Air Weight: 166 lb 3.657 oz Body Mass Index (BMI) 24.5 Finger Stick Blood Glucose 146 Intake and Output for Last 24 Hours 08/14/19 08/15/19 08/16/19 23:59 23:59 23:59 Intake Total 978.62 / 978.62 1006.42 / 1406.42 581.75 / 581.75 Output Total 800 / 800 1200 / 1200 Balance 178.62 / 178.62 1006.42 / 1406.42 -618.25 / -618.25 General: Awake, Alert, Oriented x 3, Cooperative HEENT: Atraumatic, Normocephalic, PERRL, EOMI Oral: Moist Mucosa Neck: Supple, Good ROM, Positive JVD Lungs: - - Scattered rhonchi Cardiovascular: Irregular Rhythm, Normal S1, Normal S2 Abdomen: Bowel Sounds Present, Soft, Non Tender Extremities: No edema Psych/Mental Status: Appropriate 08/16/19 05:05: WBC 20.7 H, RBC 4.23, Hgb 12.5, Hct 39.9, MCV 94.3, MCH 29.6, MCHC 31.3 L, Plt Count 255, MPV 9.7, Immature Gran % (Auto) 0.800, Neut % (Auto) 88.2 H, Lymph % (Auto) 4.2 L, [place] % (Auto) 6.7, Eos % (Auto) 0.0, Baso % (Auto) 0.1, Absolute Neuts (auto) 18.3 H, Nucleated RBC % 0.1 08/16/19 05:05: Sodium 134 L, Potassium 4.2, Chloride 100, Carbon Dioxide 26.0, Anion Gap 8, BUN 59 H, Creatinine 1.51 H, Est GFR (MDRD) Af Amer 43 L, Est GFR (MDRD) Non-Af 36 L, BUN/Creatinine Ratio 39.1 H, Glucose 118 H, Calcium 8.2 L Rhythm: Atrial fibrillation; PVCs; wide-complex tachycardia dysrhythmias Medical Necessity - Tobacco Use Smoking Status: Never smoker Tobacco Use: Non-smoker Assessment/Plan 1. Acute on chronic systolic mediated CHF At the present time the patient states that she is improved since arrival to hospital. However she is continues with her cough, scattered rhonchi on examination, and the need of assistance in her volume status. At the present time she will continue medical management. This will include adjustment of her medications. Her IV continuous furosemide infusion will be discontinued. She will be transition back to oral furosemide therapy. She will be followed from a clinical standpoint and with respect to her renal function, electrolytes, etc. 2. Dilated cardiomyopathy She has a non-CAD related cardiomyopathy. She has been treated medically. Her medicines have been adjusted in the past as well as recently to try and maintain volume status, etc. She will continue her medical management as noted. 3. Status post mitral valve replacement-porcine She has been evaluated locally and at [facility]. At the moment there have been no immediate plans for additional valvular intervention either percutaneously or surgically. This could change depending upon her clinical course. 4. Atrial fibrillation Her cardiac rate and rhythm will continue to be monitored. Her medications can be adjusted with respect rate control and 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 therapy. Based upon her ICD interrogation there were reports of potential aberrant conduction and no anti-tach pacing or defibrillations occurring. At the present time based upon concerns of her underlying rate, rhythm, ventricular ectopy, etc. she will be placed on additional antiarrhythmic therapy with amiodarone barring unforeseen concerns. 5. ICD Her ICD has been interrogated. It appears to be functioning appropriately per the report. Comment: The patient's case has been discussed and reviewed with the patient, her spouse, other family members present, as well as with Dr. Bhat. This note was generated using a voice recognition system and there may be incor rect words, spelling or punctuation that were not noted when reviewing the office note prior to saving.
[2019-08-16] MEDS: Amiodarone 200 MG Tablet PO ×2 (14:12→21:43)
[2019-08-16 14:20] LABS: AST(SGOT) 16 U/L (15-37); Alanine Aminotransfer ALT/SGPT 26 U/L (13-56); Albumin, Serum 3.6 g/dL (3.2-5.0); Alkaline Phosphatase 70 U/L (45-117); Bilirubin, Direct 0.32 mg/dL (0.00-0.30); Globulin 4.3 g/dL (2.2-4.2); Protein, Total 7.9 g/dL (6.4-8.2)
--- NOTE | 2019-08-16 14:23 | CHAPLAIN ---
Type of Pastoral Visit _x__ Initial Visit ___ Follow-up Visit ___ On-call Visit ___ General Patient Visit ___ Spiritual Assessment ___ Family Conference ___ Bereavement ___ Rapid Response ___ Code Blue ___ Other (describe below) Pastoral Care Referral From _x__ Patient ___ Family ___ Nurse ___ Physician ___ [employer] Rep ___ Housing Court Judge ___ Other (describe below) Sacrament/Intervention _x__ Active listening ___ Anointing ___ Muslim ___ Bereavement ___ Communion _x__ Shelly exploration ___ ___ Life review _x__ Prayer ___ Reconciliation ___ Sacrament of Sick _x__ Supportive presence ___ Wedding ___ Other (describe below) Pastoral Comments this patient has been seen in other admissions and welcomes support of spiritual care; spouse is with her at this time
--- NOTE | 2019-08-16 15:06 | CASEMGMT ---
Patient has a Healthcare POA and Healthcare LW on file in e-chart. SW printed documents and placed them in her chart. Giulia DOBSON MSW
[2019-08-16] MEDS: Mag Hydrox/Al Hydrox/Simeth 30 ML UDC PO ×2 (16:39→21:45)
[2019-08-16] MEDS: Acetaminophen 325 MG Tablet 650 MG PO (17:45)
[2019-08-16] MEDS: Furosemide 80 MG Tablet PO (17:45)
[2019-08-16] MEDS: Polyethylene Glycol 3350 17 GM PACKET PO (21:41)
[2019-08-16] MEDS: Amitriptyline 25 MG Tablet 50 MG PO (21:45)
[2019-08-16] MEDS: Senna/Docusate Sodium 1 Tablet 2 TABLET PO (21:45)
[2019-08-16] MEDS: MELATONIN 3 MG TABLET PO (21:45)
[2019-08-16] MEDS: Gabapentin 100 MG Capsule PO (21:45)
[2019-08-16] MEDS: Carvedilol 6.25 MG Tablet PO (21:45)
[2019-08-16] MEDS: Pravastatin 40 MG Tablet PO (21:45)
[2019-08-16] MEDS: Levothyroxine 88 MCG Tablet PO (21:45)
[2019-08-16] MEDS: 0.9% Saline Lock 10 ML Syringe IV (21:48)
[2019-08-17 02:00] VITALS: BP 98/61; PULSE 81; RESP 18; TEMP 36.6; O2SAT 98
[2019-08-17 04:47] VITALS: PULSE 80
[2019-08-17 06:17] LABS: Absolute Lymphocyte Count 1.64 X10^3/uL (0.83-4.51); Basophil# 0.03 X10^3/uL; Basophil% 0.2 % (0-1); Eosinophils% 1.4 % (0-5); Hematocrit 37.5 % (37-47); Hemoglobin 11.8 g/dL (12.0-15.0); Lymphocyte # 1.64 X10^3/ul (4.0); Lymphocyte % 11.4 % (19-41); Mean Corp Hgb Conc 31.5 g/dL (32-36); Mean Corpuscular Hgb 29.8 pg (27.0-32.0); Mean Corpuscular Volume 94.7 fL (81-99); Mean Platelet Vol. 9.6 fl (6.2-12.0); Monocyte% 9.1 % (0-10); NRBC Flagged by Analyzer 0.2 % (0-5); Neutrophil # 11.04 X10^3/uL (2.7-7.7); Platelet Count 233 K/mm3 (150-450); RBC Distribution Width SD 57.5 fl (35.1-43.9); Red Blood Count 3.96 M/mm3 (4.2-5.4); White Blood Count 14.3 K/mm3 (4.4-11.0)
[2019-08-17 06:28] LABS: Anion Gap 5 (5-15); BUN 58 mg/dL (7-18); BUN/Creat Ratio 39.2 RATIO (10-20); Calcium,Total 8.4 mg/dL (8.5-10.1); Chloride 103 mmol/L (98-107); Creatinine, Serum 1.48 mg/dL (0.55-1.02); EST Glomerular Filtration Rate 36 mL/min (>60); Est Glom Filt Rate - Afr Amer 44 mL/min (>60); Estimated Creatinine Clearance 34.42 ml/min; Glucose 97 mg/dL (74-106); Potassium 4.7 mmol/L (3.5-5.1); Sodium Level 139 mmol/L (136-145)
[2019-08-17] MEDS: Benzonatate 100 MG Capsule PO (06:47)
[2019-08-17 06:50] VITALS: PULSE 95
[2019-08-17 07:44] VITALS: PULSE 84; RESP 16; O2SAT 98
[2019-08-17] MEDS: Ipratropium/Albuterol Sulfate 3 ML AMPUL.NEB INHALATION (07:44)
[2019-08-17 07:45] VITALS: BP 106/76; PULSE 88; RESP 20; TEMP 36.3; O2SAT 98
[2019-08-17 08:25] LABS: BNP,B-Type NATRIURETIC PEPTIDE 688.5 pg/mL (0-100)
--- NOTE | 2019-08-17 08:38 | PN.CARD_ITS ---
Subjectve: The patient is awake and alert. She states that overall she feels she is stronger than when she first came to the hospital. Objective: Vital Signs Temp Pulse Resp BP Pulse Ox 98 F 84 16 98/61 98 08/17/19 02:00 08/17/19 07:44 08/17/19 07:44 08/17/19 02:00 08/17/19 07:44 Oxygen Flow Rate (L/min) 2 Oxygen Delivery Method Room Air Weight: 170 lb 3.15 oz Body Mass Index (BMI) 24.5 Finger Stick Blood Glucose 146 Intake and Output for Last 24 Hours 08/15/19 08/16/19 08/17/19 23:59 23:59 23:59 Intake Total 1006.42 / 1406.42 965.33 / 965.33 Output Total 1600 / 2000 700 / 700 Balance 1006.42 / 1406.42 -634.67 / -1034.67 -700 / -700 General: Awake, Alert, Oriented x 3, Cooperative, No Acute Distress HEENT: Atraumatic, Normocephalic, PERRL, EOMI, Sclera Non Icteric Oral: Moist Mucosa Neck: Supple, Good ROM, No JVD Lungs: - - No obvious rales or rhonchi Cardiovascular: Regular Rhythm, Premature Ectopic Beats, Normal S1, Normal S2 Vascular: No Carotid Bruits Abdomen: Bowel Sounds Present, Soft, Non Tender Extremities: No edema Psych/Mental Status: Appropriate 08/16/19 13:25: Total Bilirubin 0.70, Direct Bilirubin 0.32 H 08/17/19 05:45: WBC 14.3 H, RBC 3.96 L, Hgb 11.8 L, Hct 37.5, MCV 94.7, MCH 29.8, MCHC 31.5 L, Plt Count 233, MPV 9.6, Immature Gran % (Auto) 0.900, Neut % (Auto) 77.0 H, Lymph % (Auto) 11.4 L, [place] % (Auto) 9.1, Eos % (Auto) 1.4, Baso % (Auto) 0.2, Absolute Neuts (auto) 11.0 H, Nucleated RBC % 0.2 08/17/19 05:45: Sodium 139, Potassium 4.7, Chloride 103, Carbon Dioxide 31.0, Anion Gap 5, BUN 58 H, Creatinine 1.48 H, Est GFR (MDRD) Af Amer 44 L, Est GFR (MDRD) Non-Af 36 L, BUN/Creatinine Ratio 39.2 H, Glucose 97, Calcium 8.4 L 08/17/19 05:45: B-Natriuretic Peptide 688.5 H Rhythm: Sinus rhythm; PACs; PVCs Medical Necessity - Tobacco Use Smoking Status: Never smoker Tobacco Use: Non-smoker Assessment/Plan 1. Acute on chronic systolic mediated CHF At the present time the patient states that she is improved since arrival to hospital. She states she feels better today and stronger than when she first arrived at the hospital. At the present time she will continue medical management. She has been transitioned from IV continuous infusion furosemide to oral pulsed dose of furosemide. She has had no acute relapse of her volume status. Her BTNP level has decreased compared to admission to the hospital. Perhaps this can be used as an exiting baseline to help guide further evaluation and care. She will continue medical management. 2. Dilated cardiomyopathy She has a non-CAD related cardiomyopathy. She has been treated medically. Her medicines have been adjusted in the past as well as recently to try and maintain volume status, etc. She will continue her medical management as noted. 3. Status post mitral valve replacement-porcine She has been evaluated locally and at [facility]. At the moment there have been no immediate plans for additional valvular intervention either percutaneously or surgically. This could change depending upon her clinical course. 4. Atrial fibrillation Her cardiac rate and rhythm will continue to be monitored. Her medications can be adjusted with respect rate control and 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 therapy. Based upon her ICD interrogation there were reports of potential aberrant conduction and no anti-tach pacing or defibrillations occurring. At the present time based upon concerns of her underlying rate, rhythm, ventricular ectopy, etc. she will be placed on additional antiarrhythmic therapy with amiodarone barring unforeseen concerns. She appears to be tolerating the medication well thus far. She will continue on an amiodarone taper. 5. ICD Her ICD has been interrogated. It appears to be functioning appropriately per the report. Overall, the present time, the patient does appear to be improved compared to admission to the hospital and tolerating her medications. She will need to continue her medications with outpatient cardiovascular follow-up and laboratory follow-up and further adjustment of her medications as deemed appropriate. Comment: The patient's case has been discussed and reviewed with the patient. This note was generated using a voice recognition system and there may be incorrect words, spelling or punctuation that were not noted when reviewing the office note prior to saving.
[2019-08-17] MEDS: Aspirin 81 MG TAB.CHEW PO (08:54)
[2019-08-17] MEDS: APIXABAN 2.5 MG TABLET PO (08:54)
[2019-08-17] MEDS: BRIMONIDINE 0.15% 5 ML Bottle 1 DRP EACH EYE (08:55)
[2019-08-17] MEDS: Citalopram 20 MG Tablet PO (08:55)
[2019-08-17] MEDS: Carvedilol 6.25 MG Tablet PO (08:55)
[2019-08-17] MEDS: Furosemide 80 MG Tablet PO (08:57)
[2019-08-17] MEDS: Amiodarone 200 MG Tablet PO (08:57)
--- NOTE | 2019-08-17 09:46 | PCM.DC ---
- Discharge Diagnoses Current Active Problems: Current Active and Chronic Problems (Last Updated 08/16/19 @ 12:41 by Nerissa Bhat MD) Renal insufficiency (Chronic) Chronic systolic (congestive) heart failure (Chronic) You will use the following diet at home:: Cardiac, Fluid restricted (specify 2000 mls, 1500 mls) - Less than 1500 cc daily Your food should be the consistency of: Regular Discharge Activity: Return to Normal Activity Weight Bearing Status: Weight bearing as tolerated Call your doctor if you observe: Fever of 101 or Higher, Shortness of breath, Dizziness, Fainting spells, Swelling in the ankles, Chest pain, Increased palpitations (irregular heartbeat), Uncontrolled pain Allergies/Adverse Reactions: Allergies levofloxacin [Levofloxacin] Allergy (Verified 08/13/19 11:10) Hives warfarin [From Coumadin] Allergy (Verified 08/13/19 11:10) Other torsemide [From Demadex] Adverse Reaction (Intermediate, Verified 08/13/19 11:10) Rash Medications to take at Discharge Multivitamins,Therapeutic [Multivitamin] 1 tab PO DAILY 11/16/15 albuterol sulfate 90 mcg/actuation aerosol inhaler 2 puff INHALATION BID PRN 09/10/17 pravastatin 40 mg tablet 40 mg PO QHS tab 09/11/17 fluticasone propionate 50 mcg/actuation nasal spray,suspension 2 spray INTRANASAL DAILY 01/20/18 Brimonidine 0.15% [Alphagan P 0.15%] 1 drp EACH EYE BID 06/19/18 Levothyroxine [Synthroid] 88 mcg PO QHS 06/22/18 gabapentin 100 mg capsule 100 mg PO QHS cap 07/15/18 Aspirin [Aspirin, Baby] 81 mg PO DAILY@0800 09/07/18 amitriptyline 50 mg tablet 50 mg PO QHS 10/15/18 apixaban 2.5 mg tablet 2.5 mg PO BID 10/15/18 Acetaminophen [Tylenol] 1,000 mg PO Q4H PRN PRN 11/09/18 Budesonide Aerosol [Pulmicort Respules] 0.5 mg INHALATION BID PRN 11/09/18 benzonatate 100 mg capsule 100 mg PO TID PRN 05/04/19 magnesium 250 mg tablet 250 mg PO QODAY 07/22/19 potassium chloride 20 mEq tablet,extended release 20 meq PO BID #60 tab 07/22/19 Citalopram [Celexa] 20 mg PO DAILY 08/13/19 Vitamin B Complex [B Complex] 1 tab PO DAILY 08/13/19 Lubiprostone [Amitiza] 8 mcg PO QHS 08/16/19 Polyethylene Glycol 3350 [Miralax] 17 gm PO QHS 08/16/19 Amiodarone HCl [Cordarone] 200 mg PO TID #90 tab 08/17/19 Carvedilol [Coreg (Beta Rolando)] 6.25 mg PO BID #90 tab 08/17/19 Furosemide [Lasix] 80 mg PO BID@1000,1800 #90 tab 08/17/19 The following prescriptions were given: Amiodarone HCl [Cordarone] 200 mg PO TID #90 tab Prescription Printed Carvedilol [Coreg (Beta Rolando)] 6.25 mg PO BID #90 tab Transmission Status: Pending to [facility] Furosemide [Lasix] 80 mg PO BID@1000,1800 #90 tab Transmission Status: Pending to [facility] Orders to be completed after discharge: Basic Metabolic Profile (BMP) Time Frame: 08/23/19, Facility: [facility], Location: Laboratory Primary Care Physician: Minerva Martin MD [Primary Care Provider] - Please follow up with your Primary Care Physician in: 1 week. Test Results: Test results from this visit will be discussed in further detail at your follow-up appointment, if applicable. Please Follow Up With: Gurdeep Huang MD When: 2-3 weeks.
--- NOTE | 2019-08-17 10:24 | PHA.DC.MC ---
Pharmacy Service has performed discharge medication reconciliation and counseling for this patient. 1. AMIODARONE 200MG TABLET - 1 TABLET PO TID X 7DAYS, THEN 1 TABLET PO BID X 14 DAYS, THEN 1 TABLET PO DAILY The patient's discharge medication list was reviewed for discrepancies and discrepancies were resolved. Home Medications Multivitamins,Therapeutic [Multivitamin] 1 tab PO DAILY 11/16/15 albuterol sulfate 90 mcg/actuation aerosol inhaler 2 puff INHALATION BID PRN 09/10/17 pravastatin 40 mg tablet 40 mg PO QHS tab 09/11/17 fluticasone propionate 50 mcg/actuation nasal spray,suspension 2 spray INTRANASAL DAILY 01/20/18 Brimonidine 0.15% [Alphagan P 0.15%] 1 drp EACH EYE BID 06/19/18 Levothyroxine [Synthroid] 88 mcg PO QHS 06/22/18 gabapentin 100 mg capsule 100 mg PO QHS cap 07/15/18 Aspirin [Aspirin, Baby] 81 mg PO DAILY@0800 09/07/18 amitriptyline 50 mg tablet 50 mg PO QHS 10/15/18 apixaban 2.5 mg tablet 2.5 mg PO BID 10/15/18 Acetaminophen [Tylenol] 1,000 mg PO Q4H PRN PRN 11/09/18 Budesonide Aerosol [Pulmicort Respules] 0.5 mg INHALATION BID PRN 11/09/18 benzonatate 100 mg capsule 100 mg PO TID PRN 05/04/19 magnesium 250 mg tablet 250 mg PO QODAY 07/22/19 potassium chloride 20 mEq tablet,extended release 20 meq PO BID #60 tab 07/22/19 Citalopram [Celexa] 20 mg PO DAILY 08/13/19 Vitamin B Complex [B Complex] 1 tab PO DAILY 08/13/19 Lubiprostone [Amitiza] 8 mcg PO QHS 08/16/19 Polyethylene Glycol 3350 [Miralax] 17 gm PO QHS 08/16/19 Amiodarone HCl [Cordarone] 200 mg PO TID #90 tab 08/17/19 Carvedilol [Coreg (Beta Rolando)] 6.25 mg PO BID #90 tab 08/17/19 Furosemide [Lasix] 80 mg PO BID@1000,1800 #90 tab 01/07/20 The patient was counseled on the following discharge medications and changes in medications for homegoing were reviewed. The Reason for Use, instructions for use, and potential side effects were reviewed for all new medications. The patient's questions regarding all of their medications were answered. The patient was able to verbally demonstrate an understanding of their discharge medications.
--- NOTE | 2019-08-17 13:53 | DS.PCM_ITS ---
Discharge Date and Diagnosis Date of Admission: 08/13/19 Date of Discharge: 08/17/19 - Primary Discharge Diagnosis #1 acute on chronic combined systolic and diastolic CHF. #2 paroxysmal atrial fibrillation with concern of potential aberrant conduction, started on amiodarone. - Secondary Discharge Diagnosis Chronic Problems (Last Updated 08/16/19 @ 12:41 by Nerissa Bhat MD) 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) Renal insufficiency (Chronic) Nonhealing ulcer of right lower extremity with fat layer exposed (Chronic) Anxiety and depression (Chronic) HTN (hypertension) (Chronic) Cardiac dysrhythmia (Chronic) group home current use of 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 (Chronic) DVT (deep venous thrombosis) (Chronic) Paroxysmal atrial fibrillation (Chronic) Chronic systolic (congestive) heart failure (Chronic) Menopausal osteoporosis (Chronic) Prediabetes (Chronic) Stroke (Chronic) Nonrheumatic mitral (valve) prolapse (Chronic) Hyperlipemia (Chronic) 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) Restrictive lung disease (Chronic) URMILA (obstructive sleep apnea) (Chronic) Hypothyroidism (Chronic) 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) mod-severe stenosis by SOL 08/11/15 s/p MVR porcine Pulmonary HTN (Chronic) Cardiomyopathy (Chronic) Adrenal cortex insufficiency (Chronic) appears secondary baseline cortisol low ACTH stim test normal Hospital Course and Treatment Imaging Results: Clinical Impression(s) from Imaging Studies Chest X-Ray 08/13/19 11:48 IMPRESSION: No new focal patchy airspace opacities No significant radiographic evidence of CHF COPD with coarse lung markings and mild scarring Cardiomegaly, cardiac surgery and cardiac device Electronically Signed: Kelvin Gonsalves DO at 12:18 EST Tel , Service support , Dr. Huang/Dr. Glaser, cardiology. Operations: None, - - 09/01/18 - 1. Surgical preparation right knee with excisional debridement nonhealing hematoma ulcers. 2. Reconstruction with STSG from right lower abdominal wall (57 cm2). Procedures: EKG, - - Pacemaker interrogation. Summary of Care Provided: Patient seen and examined on the day of discharge and appeared to be stable to discharge home. She denied any more shortness of breath and she feels better. Her vital signs are stable. The patient is a 79 year old F patient presented to the emergency department because of shortness of breath and she was found to have acute on chronic combined systolic and diastolic CHF. She was found to have elevated BNP and it was 2549.. Her EKG revealed no acute ischemic changes. Troponin was negative. She was treated with IV Lasix drip and p.o. Coreg. She was not on ANTONIO inhibitor's because of chronic kidney disease. She had an echocardiogram done on April, that showed ejection fraction of 20%, diastolic dysfunction and pulmonary artery pressure of 45. Cardiology was consulted to help with man agement of her acute CHF. She did have significant leukocytosis which was attributed to IV steroids that she received in the emergency department. According to cardiology, pacemaker interrogated and there was a concern that patient may have aberrant conduction for which she was started on amiodarone. With IV diuresis, patient symptoms improved and her vital signs stabilized. Her pulse ox remained normal on room air. Her kidney function remained stable at her baseline in spite of IV diuresis. Patient was started on amiodarone yesterday 200 mg p.o. 3 times daily and she did well overnight. Patient discharged home in a stable medical condition, discharged on amiodarone 200 mg p.o. 3 times daily for 1 week, 200 mg p.o. twice daily for 2 weeks and then 200 mg p.o. daily, instructions were given, discharged on Lasix 80 mg p.o. twice daily, Coreg decreased down to 6.25 mg p.o. twice daily, continued on her other previous home medications including Eliquis without any changes, order placed for repeat BMP in 5 days for follow-up, plan to follow-up with cardiology in 2 to 3 weeks and recommended follow-up with PCP in 1 week. - Physical Exam Vitals/I&O's: Vital Signs Temp Pulse Resp BP Pulse Ox 97.3 F L 88 20 H 106/76 98 08/17/19 07:45 08/17/19 07:45 08/17/19 07:45 08/17/19 07:45 08/17/19 07:45 Oxygen Flow Rate (L/min) 2 Oxygen Delivery Method Room Air Weight: 170 lb 3.15 oz Body Mass Index (BMI) 24.5 Finger Stick Blood Glucose 146 Intake and Output for Last 24 Hours 08/15/19 08/16/19 08/17/19 23:59 23:59 23:59 Intake Total 1006.42 / 1406.42 965.33 / 965.33 Output Total 1600 / 2000 700 / 700 Balance 1006.42 / 1406.42 -634.67 / -1034.67 -700 / -700 General: Alert, Oriented x3, Cooperative, No apparent distress HEENT: Atraumatic, PERRLA, EOMI, Normocephalic Oral: Moist Mucosa, No Gingival or Mucosal Lesions/ Ulcerations Neck: Supple, No JVD, Negative Carotid Bruits, Trachea Midline, Thyroid Normal Size and Texture Lungs: Clear to auscultation, Normal air movement, No rhonchi, No wheeze, No rales, Diminished Cardiovascular: Regular rate, Regular Rhythm, Normal S1, Normal S2, PMI Normal Abdomen: Bowel Sounds Present, Soft, Non Tender, Non-Distended, No Hepato- splenomegaly Extremities: No clubbing, No cyanosis, No edema Skin: No rashes, No breakdown Lymphatic: No Cervical, Supraclavicular, or Inguinal Adenopathy Neurological: Cranial nerves II-XII grossly intact, Neuro grossly intact Psych/Mental Status: Normal Affect, Appropriate Laboratory Results 08/16/19 13:25: Total Bilirubin 0.70, Direct Bilirubin 0.32 H, AST 16, ALT 26, Alkaline Phosphatase 70, Total Protein 7.9, Albumin 3.6, Globulin 4.3 H 08/17/19 05:45: WBC 14.3 H, RBC 3.96 L, Hgb 11.8 L, Hct 37.5, MCV 94.7, MCH 29.8, MCHC 31.5 L, RDW Std Deviation 57.5 H, RDW Coeff of Jackie 17.0 H, Plt Count 233, MPV 9.6, Immature Gran % (Auto) 0.900, Neut % (Auto) 77.0 H, Lymph % (Auto) 11.4 L, [place] % (Auto) 9.1, Eos % (Auto) 1.4, Baso % (Auto) 0.2, Absolute Neuts (auto) 11.0 H, Absolute Lymphs (auto) 1.64, Nucleated RBC % 0.2 08/17/19 05:45: Sodium 139, Potassium 4.7, Chloride 103, Carbon Dioxide 31.0, Anion Gap 5, BUN 58 H, Creatinine 1.48 H, Estim Creat Clear Calc 34.42, Est GFR (MDRD) Af Amer 44 L, Est GFR (MDRD) Non-Af 36 L, BUN/Creatinine Ratio 39.2 H, Glucose 97, Calcium 8.4 L 08/17/19 05:45: B-Natriuretic Peptide 688.5 H Discharge Activity: Return to Normal Activity Weight Bearing Status: Weight bearing as tolerated Call your doctor if you observe: Fever of 101 or Higher, Shortness of breath, Dizziness, Fainting spells, Swelling in the ankles, Chest pain, Increased palpitations (irregular heartbeat), Uncontrolled pain Home Medications: Medications to take at Discharge Multivitamins,Therapeutic [Multivitamin] 1 tab PO DAILY 11/16/15 albuterol sulfate 90 mcg/actuation aerosol inhaler 2 puff INHALATION BID PRN 09/10/17 pravastatin 40 mg tablet 40 mg PO QHS tab 09/11/17 fluticasone propionate 50 mcg/actuation nasal spray,suspension 2 spray INTRANASAL DAILY 01/20/18 Brimonidine 0.15% [Alphagan P 0.15%] 1 drp EACH EYE BID 06/19/18 Levothyroxine [Synthroid] 88 mcg PO QHS 06/22/18 gabapentin 100 mg capsule 100 mg PO QHS cap 07/15/18 Aspirin [Aspirin, Baby] 81 mg PO DAILY@0800 09/07/18 amitriptyline 50 mg tablet 50 mg PO QHS 10/15/18 apixaban 2.5 mg tablet 2.5 mg PO BID 10/15/18 Acetaminophen [Tylenol] 1,000 mg PO Q4H PRN PRN 11/09/18 Budesonide Aerosol [Pulmicort Respules] 0.5 mg INHALATION BID PRN 11/09/18 benzonatate 100 mg capsule 100 mg PO TID PRN 05/04/19 magnesium 250 mg tablet 250 mg PO QODAY 07/22/19 potassium chloride 20 mEq tablet,extended release 20 meq PO BID #60 tab 07/22/19 Citalopram [Celexa] 20 mg PO DAILY 08/13/19 Vitamin B Complex [B Complex] 1 tab PO DAILY 08/13/19 Lubiprostone [Amitiza] 8 mcg PO QHS 08/16/19 Polyethylene Glycol 3350 [Miralax] 17 gm PO QHS 08/16/19 Amiodarone HCl [Cordarone] 200 mg PO TID #90 tab 08/17/19 Carvedilol [Coreg (Beta Rolando)] 6.25 mg PO BID #90 tab 08/17/19 Furosemide [Lasix] 80 mg PO BID@1000,1800 #90 tab 08/17/19 Following Prescrptions Were Given to Patient: Amiodarone HCl [Cordarone] 200 mg PO TID #90 tab Prescription Printed Carvedilol [Coreg (Beta Rolando)] 6.25 mg PO BID #90 tab Transmission Status: Received by [facility] Furosemide [Lasix] 80 mg PO BID@1000,1800 #90 tab Transmission Status: Received by [facility] Other Amb Orders: Basic Metabolic Profile (BMP) Time Frame: 08/23/19, Facility: [facility], Location: Laboratory Primary Care Physician: Minerva Martin MD [Primary Care Provider] - Please follow up with your Primary Care Physician in: 1 week. Please Follow Up With: Gurdeep Huang MD When: 2-3 weeks. Please Follow Up With: Minerva Martin MD Disposition: Home Minutes spent on discharge:: 32 Patient Condition:: Stable Medical Necessity - Tobacco Use Smoking Status: Never smoker Tobacco Use: Non-smoker Meaningful Use Info Meaningful Use Diagnoses (Choose all that apply): CHF - CHF ANTONIO/ARB ordered at discharge?: No Reason ANTONIO/ARB not ordered?: Worsening renal disease Documented LVEF (%): 20 Code Visit Inpatient E&M: 61640 Disch Hosp
--- NOTE | 2019-08-18 15:27 | CASEMGMT ---
JOSSE RODRIGUEZ Discharge F/U Phone Call LACE: 13 Strata: 4 Discharge date: 08/17/19 Call date: 08/18/19 Call time: 1527 Admission dx: CHF exacerbation Pt states has been 'doing pretty good' since discharge. Pt states no questions regarding discharge instructions/medications at this time. Pt states has f/u appt's scheduled and plans to keep them. Pt states no suggestions for [facility] at this time. Pt states that [facility] was out today for start of care. Pt voices no further questions/concerns/needs at this time. [place] JOSSE RODRIGUEZ
== END 2019-08-17 10:36 | disposition home or self-care (01) | DRG 292 ==
LOC: ED 13:34 → PCU 13:59
PROVIDERS: Internal Medicine; Internal Medicine Cardiovascular Disease; Admitting Provider Family Medicine; Emergency Provider Emergency Medicine; Family Provider Internal Medicine; PCP Internal Medicine; Referring Provider Family Medicine; Visit Provider Hospitalist
DX: I50.43 Acute on chronic combined systolic (congestive) and diastolic (congestive) heart failure (principal); I42.0 Dilated cardiomyopathy; N17.9 Acute kidney failure, unspecified; E27.40 Unspecified adrenocortical insufficiency; I48.0 Paroxysmal atrial fibrillation; E78.5 Hyperlipidemia, unspecified; E03.9 Hypothyroidism, unspecified; D64.9 Anemia, unspecified; G47.33 Obstructive sleep apnea (adult) (pediatric); F41.8 Other specified anxiety disorders; N18.3 Chronic kidney disease, stage 3 (moderate); I25.10 Atherosclerotic heart disease of native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 without angina pectoris; R73.03 Prediabetes; I27.20 Pulmonary hypertension, unspecified; J98.4 Other disorders of lung; Z86.73 Personal history of transient ischemic attack (TIA), and cerebral infarction without residual deficits; Z95.828 Presence of other vascular implants and grafts; Z95.810 Presence of automatic (implantable) cardiac defibrillator; Z86.718 Personal history of other venous thrombosis and embolism; Z95.3 Presence of xenogenic heart valve; Z79.01 Long term (current) use of 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s; Z66 Do not resuscitate
CPT/HCPCS: 36415; 71046; 80048; 80061; 80076; 82962; 83735; 83880; 84443; 84484; 85025; 87804; 87807; 93005; 94640; 97110; 97116; 97162; 97165; 97530; 97535; 97802; 99251; 99285; J7030; J7050; A4216; G0463; J1940

== ENCOUNTER 2019-08-19 11:19 | Inpatient (IN) | payer MEDICARE, SELFPAY ==
[2019-08-13 14:18] VITALS: BMI 24.5
[2019-08-19] VITALS (19 sets, daily range): BP systolic 77–119; BP diastolic 47–77; PULSE 75–114; RESP 16–37; TEMP 36.5–36.8; O2SAT 89–100; BMI 29.8; BMI 23.6
--- NOTE | 2019-08-19 12:42 | CT_ITS ---
STUDY: CT BRAIN WITHOUT CONTRAST REASON FOR EXAM: Female, 79 years old. CONFUSION, NAUSEA, CP, WEAKNESS, DYSPNEA, HTN, A-FIB, CHF, CAD, Db, pacer, CVA RADIATION DOSAGE (If Supplied By Facility): CTDIvol = ( 44.99 ) mGy, DLP = ( 796.11 ) mGycm TECHNIQUE: Transaxial CT imaging of the brain was performed without administration of intravenous contrast material. Individualized dose optimization techniques were used for this CT. COMPARISON: Comparison is made with prior study dated June 18, 2018. FINDINGS: Normal soft tissue structures. Normal calvarium. There is mild cerebral atrophy with widening of the extra-axial spaces and ventricular dilatation. Focal area of encephalomalacia in the posterior aspect of the left parietal occipital lobe. This is unchanged. Normal basal ganglia and thalami. Normal brainstem. Normal cerebellum. There is no intracranial hemorrhage. There are no findings of an acute ischemic infarction. Normal visualized paranasal sinuses. CT/Brain/Head without Contrast IMPRESSION: Chronic involutional changes of the brain. Electronically Signed: Ed Fink, at 13:32 EST , Service support ,
--- NOTE | 2019-08-19 12:42 | EKG12_ITS ---
Test Reason : Blood Pressure : / mmHG Vent. Rate : 092 BPM Atrial Rate : 092 BPM P-R Int : 224 ms QRS Dur : 138 ms QT Int : 418 ms P-R-T Axes : 070 -14 146 degrees QTc Int : 516 ms Sinus rhythm with sinus arrhythmia with 1st degree A-V block NSIVCD (Left Sided) Abnormal ECG Confirmed by PATRICIA ITRADO, TRISTEN ([id number]), design editor JAMAAL SAHNI ([id number]) on 08/23/2019 10:10:51 AM Referred By: KEITH Confirmed By:TRISTEN GOMEZ MD
--- NOTE | 2019-08-19 12:45 | RAD_ITS ---
STUDY: X-RAY CHEST REASON FOR EXAM: Female, 79 years old. CHEST PAIN, DYSPNEA, NAUSEA, WEAKNESS -- HX OF ARRYTHMIA, CAD, CHF, HTN, PACEMAKER AND ICD, ASTHMA TECHNIQUE: Single frontal view of the chest. COMPARISON: 08/13/2019. FINDINGS: Reidentified cardiac device and median sternotomy. Mild cardiomegaly. Mild pulmonary vascular congestion. No focal airspace opacities. No pleural effusions. Upper abdomen unremarkable. Osseous structures intact. No pneumothorax. RAD/Chest 1 View (Portable) IMPRESSION: No significant interval change compared to prior. Cardiomegaly and mild pulmonary vascular congestion Electronically Signed: Juan Carlos Larson, at 14:06 EST Tel , Service support ,
[2019-08-19 13:04] LABS: Bacteria 0 SEEN /hpf (None Seen); Mucous, Urine 0 SEEN /hpf (<or=2+); White Blood Cells 0 SEEN /hpf (0-5)
--- NOTE | 2019-08-19 13:08 | ED.RN ---
PT LETHARGIC UPON ARRIVAL TO ED, RESPONDED TO VERBAL STIMULI BUT DID NOT OPEN EYES, CONFUSED, WEAK, UNABLE TO SPEAK MORE THAN A FEW WORDS, DIFFICULTY FOLLOWING INSTRUCTIONS. AFTER APPROX 1 HR, PT SITTING UPRIGHT, EYES OPEN, CLEAR SPEECH, ORIENTED X4. PT DOES NOT REMEMBER SQUAD RIDE TO ED, DOES NOT REMEMBER IV PLACEMENT, STRAIGHT CATH UPON ARRIVING AT ED.
[2019-08-19 13:12] LABS: Absolute Lymphocyte Count 0.37 X10^3/uL (0.83-4.51); Absolute Neutrophil Count 26.7 X10^3/uL (2.0-7.7); Basophil# 0.05 X10^3/uL; Basophil% 0.2 % (0-1); Eosinophils% 0.3 % (0-5); Hematocrit 43.4 % (37-47); Hemoglobin 13.6 g/dL (12.0-15.0); Lymphocyte # 0.37 X10^3/ul (4.0); Lymphocyte % 1.3 % (19-41); Mean Corp Hgb Conc 31.3 g/dL (32-36); Mean Corpuscular Hgb 29.2 pg (27.0-32.0); Mean Corpuscular Volume 93.3 fL (81-99); Mean Platelet Vol. 9.5 fl (6.2-12.0); Monocyte# 1.23 X10^3/uL; Monocyte% 4.3 % (0-10); NRBC Flagged by Analyzer 0 % (0-5); Neutrophil # 26.66 X10^3/uL (2.7-7.7); Neutrophil % 93.1 % (47-70); POSITIVE DIFFERENTIAL YES; Platelet Count 261 K/mm3 (150-450); RBC Distribution Width CV 16.8 % (11.6-14.6); RBC Distribution Width SD 56.4 fl (35.1-43.9); Red Blood Count 4.65 M/mm3 (4.2-5.4); White Blood Count 28.6 K/mm3 (4.4-11.0)
[2019-08-19 13:18] LABS: Color, Urine Yellow (Yellow); Glucose, Dipstick Normal (Normal); Ketone-Dipstick Negative (Negative); Leukocyte Esterase-Dipstick Negative /ul (Negative); Nitrite-Dipstick Negative (Negative); Occult Blood-Urine 50 /ul (Negative); Protein-Dipstick 30 mg/dl (Negative); Urine Bilirubin Dipstick Negative (Negative); Urine Clarity Clear (Clear); Urine Urobilinogen Normal (Normal)
[2019-08-19 13:18] LABS: Differential Indicated SCAN CRITERIA MET
[2019-08-19 13:26] LABS: International Normalized Ratio 1.7
[2019-08-19 13:27] LABS: Partial Thromboplast Time 27.9 Seconds (24.1-36.2)
[2019-08-19 13:30] LABS: ALB/GLOB Ratio 0.8 RATIO (0.9-2.4); AST(SGOT) 25 U/L (15-37); Alanine Aminotransfer ALT/SGPT 25 U/L (13-56); Albumin, Serum 3.8 g/dL (3.2-5.0); Alkaline Phosphatase 78 U/L (45-117); Anion Gap 6 (5-15); BUN 54 mg/dL (7-18); BUN/Creat Ratio 28.1 RATIO (10-20); Calcium,Total 9.8 mg/dL (8.5-10.1); Chloride 101 mmol/L (98-107); Creatinine, Serum 1.92 mg/dL (0.55-1.02); EST Glomerular Filtration Rate 27 mL/min (>60); Est Glom Filt Rate - Afr Amer 33 mL/min (>60); Estimated Creatinine Clearance 21.19 ml/min; Globulin 4.5 g/dL (2.2-4.2); Glucose 120 mg/dL (74-106); Lipase 684 U/L (73-393); Potassium 4.6 mmol/L (3.5-5.1); Protein, Total 8.3 g/dL (6.4-8.2); Sodium Level 137 mmol/L (136-145)
[2019-08-19] MEDS: 0.9% Normal Saline 1,000 ML 250 ML IV (13:30)
--- NOTE | 2019-08-19 13:35 | ED.DCSUM_ITS ---
History of Present Illness Chief Complaint: Chest Pain Informant: Patient, Family Onset: Today Narrative: Patient is a 79-year-old female with complex medical history including congestive heart failure and atrial fibrillation resenting via EMS with for concern of increased work of breathing, confusion and cyanosis. Patient was discharged from the hospital 2 days ago. Apparently she was admitted for 5 days for CHF exacerbation. She was weaned off of Lasix. Yesterday she started to cough again and have shortness of breath. She also was feeling very cold. This morning she was nauseous and then shortly after had increased work of breathing. notes that her face looked flushed however her lips and her fingers were blue. She also start to be very confused. Patient threw up her morning medications including her Lasix. Patient is also on amiodarone and Eliquis. Her activities therapist Dr. Huang. She does have a defibrillator/pacemaker. Patient currently states she is cold but denies any other complaints. Patient did receive 8 mg of Zofran in route. Patient is also complaining that her mouth feels very dry. Past Medical History - Allergies and Home Meds Allergies/Adverse Reactions: Allergies levofloxacin [Levofloxacin] Allergy (Verified 08/19/19 11:24) Hives warfarin [From Coumadin] Allergy (Verified 08/19/19 11:24) Other torsemide [From Demadex] Adverse Reaction (Intermediate, Verified 08/19/19 11:24) Rash Past Medical History: - - Arrhythmia, systolic congestive heart failure, cardiomyopathy, coronary artery disease, atrial fibrillation, pulmonary hypertension, restrictive lung disease, hypothyroid, hyperlipidemia, history of adrenal insufficiency Surgical History: cataract, hysterectomy, total hip arthroplasty - Bilateral., total knee arthroplasty - Bilateral., - - AICD, Bioprosthetic mitral valve replacement, recent right knee debridement and skin grafting. Lives: Spouse/ Significant Other Smoking Status: Never smoker - Family History Paternal Family History: Family History (Last Reviewed 08/19/19 @ 17:37 by Kelvin Frazier DO) Father CVA (cerebral vascular accident) Mother Cancer Sister Cancer Diabetes Family History: Reports: Stroke Sibling Family History: Family History (Last Reviewed 08/19/19 @ 17:37 by Kelvin Frazier DO) Father CVA (cerebral vascular accident) Mother Cancer Sister Cancer Diabetes Family History: Reports: Cancer, Diabetes Maternal Family History: Family History (Last Reviewed 08/19/19 @ 17:37 by Kelvin Frazier DO) Father CVA (cerebral vascular accident) Mother Cancer Sister Cancer Diabetes Family History: Reports: Cancer Review of Systems General: Reports: Chills, Malaise. Denies: Fever, Sweats Eyes: Denies: Visual changes - bilaterally, Diplopia ENT: Denies: Rhinorrhea, Sore throat Cardiovascular: Denies: Chest pain, Palpitations Respiratory: Reports: Dyspnea, Cough. Denies: Dyspnea on exertion Gastrointestinal: Reports: Nausea. Denies: Abdominal pain, Vomiting, Diarrhea, Melena, Hematochezia Genitourinary: Denies: Dysuria, Hematuria, Frequency Musculoskeletal: Denies: Back pain, Extremity Pain Skin: Reports: - - Cyanosis. Denies: Rash, Wounds Neurological: Denies: Headache, Weakness, Numbness Physical Exam Vital Signs/Narrative: Vital Signs Temp Pulse Resp BP Pulse Ox 08/19/19 13:02 100 27 H 92/64 93 08/19/19 12:50 89 08/19/19 11:27 114 H 37 H 96 08/19/19 11:21 98 F 114 H 34 H 119/69 93 Inital Vital Signs reviewed: Yes General: Well nourished, Well developed, No Acute Distress Head: Normocephalic, Atraumatic Eyes: Perrl, EOMI ENT: No rhinorrhea, TM's clear, Dry mucous membranes Neck: Supple, Nontender, No JVD Cardiovascular: Regular rate, No murmurs, Tachycardia Respiratory: No distress, Chest nontender, Decreased Air Movement, - - Crackles at the right base noted, clear at the left base. Negative for: Rhonchi, Wheezing Abdomen: Soft, Nontender, Nondistended, Normal bowel sounds Back: Nontender, Normal Inspection. Negative for: CVA tenderness Extremities: Nontender, No edema Skin: Normal color, No rash Neurological: Alert, Oriented x3, Cranial nerves II-XII grossly intact, Normal Strength, Normal Sensation, - - Per nursing report, patient was initially very confused upon arrival however this had resolved by the time I saw her Psychological: Normal affect, Normal Mood Diagnostic/Tx/Re-eval Chest X-Ray - ED: 1 View, Read by ED Physician, Read by Radiologist, No Acute Disease Clinical Impression(s) from Imaging Studies Brain CT 08/19/19 12:42 IMPRESSION: Chronic involutional changes of the brain. Electronically Signed: Ed Aleks, at 13:32 EST , Service support , Chest X-Ray 08/19/19 12:45 IMPRESSION: No significant interval change compared to prior. Cardiomegaly and mild pulmonary vascular congestion Electronically Signed: Juan Carlos Larson, at 14:06 EST Tel , Service support , Abdomen/Pelvis CT 08/19/19 14:34 IMPRESSION: Stable scarring at the lung bases. Stable left renal cyst. Scattered sigmoid diverticula. No acute pneumonia is seen. Electronically Signed: Ed Aleks, at 15:28 EST , Service support , Chest CT 08/19/19 14:34 IMPRESSION: Findings suggest mild scarring at the lung bases. This is unchanged. No acute abnormality is seen. Electronically Signed: Ed Aleks, at 15:36 EST , Service support , Laboratory Data 08/19/19 08/19/19 08/19/19 11:50 13:00 13:00 WBC 28.6 H RBC 4.65 Hgb 13.6 Hct 43.4 MCV 93.3 MCH 29.2 MCHC 31.3 L RDW Std Deviation 56.4 H RDW Coeff of Jackie 16.8 H Plt Count 261 MPV 9.5 Immature Gran % (Auto) 0.800 Neut % (Auto) 93.1 H Lymph % (Auto) 1.3 L [place] % (Auto) 4.3 Eos % (Auto) 0.3 Baso % (Auto) 0.2 Absolute Neuts (auto) 26.7 H Absolute Lymphs (auto) 0.37 L Nucleated RBC % 0 Differential Comment COMMENT PT 20.0 H INR 1.7 APTT 27.9 Sodium Potassium Chloride Carbon Dioxide Anion Gap BUN Creatinine Estim Creat Clear Calc Est GFR (MDRD) Af Amer Est GFR (MDRD) Non-Af BUN/Creatinine Ratio Glucose Lactic Acid Calcium Total Bilirubin AST ALT Alkaline Phosphatase Troponin I B-Natriuretic Peptide Total Protein Albumin Globulin Albumin/Globulin Ratio Lipase Urine Color Yellow Urine Clarity Clear Urine pH 6.0 Ur Specific [place] 1.010 Urine Protein 30 H Urine Glucose (UA) Normal Urine Ketones Negative Urine Occult Blood 50 H Urine Nitrite Negative Urine Bilirubin Negative Urine Urobilinogen Normal Ur Leukocyte Esterase Negative Urine RBC 0-5 SEEN Urine WBC 0 SEEN Ur Squamous Epith Cells 0-5 SEEN Urine Bacteria 0 SEEN Urine Mucus 0 SEEN 08/19/19 08/19/19 08/19/19 13:00 13:00 13:00 WBC RBC Hgb Hct MCV MCH MCHC RDW Std Deviation RDW Coeff of Jackie Plt Count MPV Immature Gran % (Auto) Neut % (Auto) Lymph % (Auto) [place] % (Auto) Eos % (Auto) Baso % (Auto) Absolute Neuts (auto) Absolute Lymphs (auto) Nucleated RBC % Differential Comment PT INR APTT Sodium 137 Potassium 4.6 Chloride 101 Carbon Dioxide 30.0 Anion Gap 6 BUN 54 H Creatinine 1.92 H Estim Creat Clear Calc 21.19 Est GFR (MDRD) Af Amer 33 L Est GFR (MDRD) Non-Af 27 L BUN/Creatinine Ratio 28.1 H Glucose 120 H Lactic Acid 2.1 H* Calcium 9.8 Total Bilirubin 0.90 AST 25 ALT 25 Alkaline Phosphatase 78 Troponin I 0.161 H B-Natriuretic Peptide 1504.6 H Total Protein 8.3 H Albumin 3.8 Globulin 4.5 H Albumin/Globulin Ratio 0.8 L Lipase 684 H Urine Color Urine Clarity Urine pH Ur Specific [place] Urine Protein Urine Glucose (UA) Urine Ketones Urine Occult Blood Urine Nitrite Urine Bilirubin Urine Urobilinogen Ur Leukocyte Esterase Urine RBC Urine WBC Ur Squamous Epith Cells Urine Bacteria Urine Mucus - Rhythm Strip Rhythm Strip: Sinus Rhythm Rate: 114 Ectopy: None - EKG Initial EKG Interpretation: Sinus Tachycardia, LBBB, - - Sinus tachycardia at a rate of 114 QRS 140 QTc 501 Left axis deviation Left bundle branch block Prior: Changed - Compared to prior EKG on 08/14/2019, patient now is tachycardic with a left bundle branch block Follow-up EKG Interpretation: Sinus Rhythm, - - Sinus rhythm at a rate of 92 with first-degree AV block QRS 138 NV interval 224 QTc [address] depressions in V4 through V6 as well as T wave inversions in 1 and aVL Compared to prior EKG patient no longer has a left bundle branch block and compared to EKG last week patient does not have any dynamic changes - Medical Decision Making Patient is evaluated for increased work of breathing and episode of cyanosis at home. She was 89% on room air and is requiring supplementary oxygen. Patient has a complex medical history including very difficult to control CHF. She now appears dehydrated and possibly over diuresed. She was just discharged 2 days ago on a higher dose of Lasix after admission for a CHF exacerbation. Patient was confused initially. I did order head CT looking for signs of intracranial bleed, this was negative for any acute process. These were patient is given a very small fluid bolus of 250 cc as she is hypotensive in the emergency room. She is fluid responsive with this. Patient is anticoagulated on Lasix and I do not suspect PE as a cause of her hypoxia given her recent admission. Patient creatinine is bumped as well as her lactate. Again I think this is dehydration. Patient does have a significant leukocytosis of 28. I am not sure what to make it out as patient is afebrile does not have an obvious source of infection. I do not think this is sepsis as I do not have a source of infection. I did add on CT chest and abdomen pelvis without contrast to look for infection. Especially given that patient had episode of nausea and a mildly elevated lipase. She does have a history of pneumonia. These were grossly negative with no acute findings. Blood cultures are obtained and pending. Patient would not be started on antibiotics at this time. Patient does have a bump in her troponin. Likely this is from her dehydration a bump in her creatinine. Do not suspect ACS as a cause her symptoms right now. Discussed with her activities therapist who agrees that her fluid balance is tenuous and does not have emergent recommendations at this time. Patient presented to medicine service for further treatment and evaluation. Family is agreeable with this plan. ED Disposition - Plan for ED Patient: Disposition: Acute Care Hospital [facility] Diagnosis: Dehydration, Hypotension, Hypoxia, Leukocytosis
[2019-08-19 13:41] LABS: Lactic Acid 2.1 mmol/L (0.4-1.9)
[2019-08-19 13:44] LABS: BNP,B-Type NATRIURETIC PEPTIDE 1504.6 pg/mL (0-100)
[2019-08-19 13:51] LABS: Red Blood Cells-Urine 0-5 SEEN /hpf (0-5); Squamous Epithelial Cells - UA 0-5 SEEN /hpf (5-10)
--- NOTE | 2019-08-19 14:34 | CT_ITS ---
STUDY: CT ABDOMEN AND PELVIS WITHOUT CONTRAST REASON FOR EXAM: Female, 79 years old. CHEST PAIN,DYSPNEA,NAUSEA,WEAKNESS, ELEV. LIPASE, LEUKOCYTOSIS, VOMITING, CVA, CAD, CHF, HTN ,PACER, ICD, ASTHMA RADIATION DOSAGE (If Supplied By Facility): CTDIvol = ( 13.98 ) mGy, DLP = ( 1241.17 ) mGycm TECHNIQUE: Transaxial images were obtained from the dome of the diaphragm to the symphysis pubis without oral contrast, and without intravenous contrast. Sagittal and coronal images were reconstructed. Individualized dose optimization techniques were used for this CT. COMPARISON: Comparison is made with prior examination dated June 18, 2018. FINDINGS: Stable increased markings at the lung bases suggestive of scarring. Dual-chamber pacemaker is seen. Mitral valve annulus calcification. Normal liver. Normal gallbladder and extrahepatic biliary system. Normal spleen. Normal pancreas. Normal bilateral adrenal glands. Normal right kidney. 3.5 cm left renal cyst. Normal visualized stomach. Normal small intestine. There are scattered colonic diverticula consistent with diverticulosis. There is non-visualization of the appendix. Normal abdominal aorta. There is an IVC filter in place. Normal retroperitoneum. A Andrews catheter is seen within the urinary bladder. The urinary bladder is decompressed. There is absence of the uterus consistent with a prior hysterectomy. Normal abdominal wall. There are diffuse degenerative changes of the visualized lumbar spine. The patient is status post bilateral hip replacement. CT/Abdomen/Pelvis without Cont IMPRESSION: Stable scarring at the lung bases. Stable left renal cyst. Scattered sigmoid diverticula. No acute pneumonia is seen. Electronically Signed: Ed Fink, at 15:28 EST , Service support ,
--- NOTE | 2019-08-19 14:34 | CT_ITS ---
STUDY: CT CHEST WITHOUT CONTRAST REASON FOR EXAM: Female, 79 years old. CHEST PAIN,DYSPNEA,NAUSEA,WEAKNESS, ELEV. LIPASE, LEUKOCYTOSIS, VOMITING, CVA, CAD, CHF, HTN ,PACER, ICD, ASTHMA RADIATION DOSAGE (If Supplied By Facility): CTDIvol = ( 13.98 ) mGy, DLP = ( 1241.17 ) mGycm TECHNIQUE: Transaxial imaging was performed without the administration of intravenous contrast material. Multiplanar coronal and sagittal images were reformatted. Individualized dose optimization techniques were used for this CT. COMPARISON: Comparison is made with prior examination dated June 18, 2018. FINDINGS: Increased interstitial markings at the lung bases suggestive of scarring. There is no demonstrated pleural abnormality. There is mild cardiac enlargement. Dual-chamber pacemaker is seen. Prior CABG. There are multiple small lymph nodes within the mediastinum, which are normal in size and morphology most compatible with reactive lymph hyperplasia. Normal hilar regions. Normal unenhanced pulmonary arteries. Normal aorta arch and descending thoracic aorta. There are multi-level degenerative changes of the thoracic spine. Healed left anterior sixth and seventh rib fractures. There is a 1.9 cm cyst in the anterior aspect of the right lobe of the liver superiorly. CT/Chest without Contrast IMPRESSION: Findings suggest mild scarring at the lung bases. This is unchanged. No acute abnormality is seen. Electronically Signed: Ed Fink, at 15:36 EST , Service support ,
--- NOTE | 2019-08-19 16:29 | ED.RN ---
250ML NS BOLUS GIVEN PER VERBAL ORDER OF MD
[2019-08-19 17:07] LABS: Reflex Lactate? Y
--- NOTE | 2019-08-19 17:35 | HP.PCM_ITS ---
History of Present Illness Date of Admission: 08/19/19 Chief Complaint: confusion The patient is a 79 year old F was just discharged 2 days ago with heart failure. Patient was doing well up until this morning where patient threw up. Afterwards, patient was noted to be delirious by her . Patient was just not answering questions properly. EMS was contacted and patient was still confused. Patient was noted to be hypotensive and sent to the emergency room for evaluation. In the emergency room, patient did receive IV fluids as her blood pressure was low but did respond with IV fluids. White count was 28,000, creatinine was noted to be 1.92. Lactic acid was 2.1. The hospital service was asked to evaluate the patient. CT of the chest showed no acute process, troponin was elevated at 0.161, BNP was elevated at 1504 and a lipase was elevated at 684. 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) Renal insufficiency (Chronic) Nonhealing ulcer of right lower extremity with fat layer exposed (Chronic) Anxiety and depression (Chronic) HTN (hypertension) (Chronic) Cardiac dysrhythmia (Chronic) long-term current use of 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 (Chronic) DVT (deep venous thrombosis) (Chronic) Paroxysmal atrial fibrillation (Chronic) Chronic systolic (congestive) heart failure (Chronic) Menopausal osteoporosis (Chronic) Prediabetes (Chronic) Stroke (Chronic) Nonrheumatic mitral (valve) prolapse (Chronic) Hyperlipemia (Chronic) 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) Restrictive lung disease (Chronic) URMILA (obstructive sleep apnea) (Chronic) Hypothyroidism (Chronic) 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) mod-severe stenosis by SOL 08/11/15 s/p MVR porcine Pulmonary HTN (Chronic) Cardiomyopathy (Chronic) Adrenal cortex insufficiency (Chronic) appears secondary baseline cortisol low ACTH stim test normal Medical History: Medical History (Last Reviewed 08/19/19 @ 17:37 by Kelvin Frazier DO) 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) Z95.810 long-term current use of 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 (Chronic) Z79.01 DVT (deep venous thrombosis) (Chronic) I82.409 Paroxysmal atrial fibrillation (Chronic) I48.0 Chronic systolic (congestive) heart failure (Chronic) I50.22 Menopausal osteoporosis (Chronic) M81.0 Prediabetes (Chronic) R73.03 Stroke (Chronic) I63.9 Nonrheumatic mitral (valve) prolapse (Chronic) I34.1 Hyperlipemia (Chronic) E78.5 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) I25.119 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) M19.011 Spondylosis of cervical joint (Chronic) M47.812 Restrictive lung disease (Chronic) J98.4 URMILA (obstructive sleep apnea) (Chronic) G47.33 Hypothyroidism (Chronic) E03.9 Pulmonary HTN (Chronic) I27.2 Cardiomyopathy (Chronic) I42.9 Adrenal cortex insufficiency (Chronic) E27.40 appears secondary baseline cortisol low ACTH stim test normal Arrhythmia, ventricular (Inactive) I49.9 CAD (coronary artery disease) (Inactive) I25.10 Cardiac dysrhythmia, unspecified (Inactive) I49.9 Allergies levofloxacin [Levofloxacin] Allergy (Verified 08/19/19 11:24) Hives warfarin [From Coumadin] Allergy (Verified 08/19/19 11:24) Other torsemide [From Demadex] Adverse Reaction (Intermediate, Verified 08/19/19 11:24) Rash Home Medications: Ambulatory Orders Medication Instructions Recorded Multivitamins,Therapeutic 1 tab PO DAILY 11/16/15 [Multivitamin] albuterol sulfate 90 mcg/actuation 2 puff INHALATION BID PRN 09/10/17 aerosol inhaler pravastatin 40 mg tablet 40 mg PO QHS tab 09/11/17 fluticasone propionate 50 2 spray INTRANASAL DAILY 01/20/18 mcg/actuation nasal spray,suspension Brimonidine 0.15% [Alphagan P 1 drp EACH EYE BID 06/19/18 0.15%] Levothyroxine [Synthroid] 88 mcg PO QHS 06/22/18 gabapentin 100 mg capsule 100 mg PO QHS cap 07/15/18 Aspirin [Aspirin, Baby] 81 mg PO DAILY@0800 09/07/18 amitriptyline 50 mg tablet 50 mg PO QHS 10/15/18 apixaban 2.5 mg tablet 2.5 mg PO BID 10/15/18 Acetaminophen [Tylenol] 1,000 mg PO Q4H PRN PRN 11/09/18 Budesonide Aerosol [Pulmicort 0.5 mg INHALATION BID PRN 11/09/18 Respules] benzonatate 100 mg capsule 100 mg PO TID PRN 05/04/19 magnesium 250 mg tablet 250 mg PO QODAY 07/22/19 potassium chloride 20 mEq 20 meq PO BID #60 tab 07/22/19 tablet,extended release Citalopram [Celexa] 20 mg PO DAILY 08/13/19 Vitamin B Complex [B Complex] 1 tab PO DAILY 08/13/19 Lubiprostone [Amitiza] 8 mcg PO QHS 08/16/19 Polyethylene Glycol 3350 [Miralax] 17 gm PO QHS 08/16/19 Amiodarone HCl [Cordarone] 200 mg PO TID #90 tab 08/17/19 Carvedilol [Coreg (Beta Rolando)] 6.25 mg PO BID #90 tab 08/17/19 Furosemide [Lasix] 80 mg PO BID@1000,1800 #90 tab 08/17/19 Surgical History: Surgical History (Last Reviewed 08/19/19 @ 17:37 by Kelvin Frazier DO) 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, Depression [employer] History: No pertinent [employer] history Smoking Status: Never smoker - *Family History Paternal Family History: Family History (Last Reviewed 08/19/19 @ 17:37 by Kelvin Frazier DO) Father CVA (cerebral vascular accident) Mother Cancer Sister Cancer Diabetes History Items: Stroke Sibling Family History: Family History (Last Reviewed 08/19/19 @ 17:37 by Kelvin Frazier DO) Father CVA (cerebral vascular accident) Mother Cancer Sister Cancer Diabetes History Items: Cancer, Diabetes Maternal Family History: Family History (Last Reviewed 08/19/19 @ 17:37 by Kelvin Frazier DO) Father CVA (cerebral vascular accident) Mother Cancer Sister Cancer Diabetes History Items: Cancer Review of Systems Constitutional: Reports: Malaise, Weakness. Denies: Anorexia, Chills, Fever Eyes: Denies: Blurred vision, Double vision HEENT: Denies: Head Aches, Sinus Congestion, Sinus Drainage Cardiovascular: Denies: Chest Pain, Palpitations Respiratory: Denies: Cough, Shortness of breath at rest, Sputum production Gastrointestinal: Reports: Constipation, Nausea, Vomiting. Denies: Abdominal Pain, Diarrhea Genitourinary: Denies: Dysuria Musculoskeletal: Denies: Joint Pain, Joint Tenderness Skin: Denies: Dryness, Jaundice Neurological: Denies: Numbness, Tingling, Focal weakness Psychiatric: Denies: Anxiety, Depression Endocrine: Denies: Change in Body Habitus, Heat/ Cold Intolerance Hematologic/ Lymphatic: Denies: Easy Bruising, Easy Bleeding, Hx of blood clot Comment: Review of systems otherwise negative except for as mentioned above and in HPI. VTE Information - Inpt Only VTE Present on Admission: No VTE Mechan Device Prophylaxis: None VTE Pharm Prophylaxis ordered?: No Reason prophylaxis not ordered:: Treatment Not Indicated - Physical Exam Vitals/I&O's: Vital Signs Temp Pulse Resp BP Pulse Ox 36.5 C L 81 23 H 89/63 L 95 08/19/19 17:34 08/19/19 17:34 08/19/19 17:34 08/19/19 17:34 08/19/19 17:34 Oxygen Flow Rate (L/min) 2 Oxygen Delivery Method Nasal Cannula Weight: 75.7 kg Body Mass Index (BMI) 23.6 Finger Stick Blood Glucose 146 Intake and Output for Last 24 Hours 08/17/19 08/18/19 08/19/19 23:59 23:59 23:59 Intake Total 250 / 250 Balance 250 / 250 General: Alert, Oriented x3, Cooperative, No apparent distress HEENT: Atraumatic, PERRLA, EOMI, Normocephalic Oral: Moist Mucosa, No Gingival or Mucosal Lesions/ Ulcerations Neck: No Nodes, Trachea Midline Lungs: Clear to auscultation, Normal air movement, No rhonchi, No wheeze, No rales Cardiovascular: Regular rate, Regular Rhythm, Normal S1, Normal S2, No murmurs Abdomen: Bowel Sounds Present, Soft, Non Tender, Non-Distended, No Hepato- splenomegaly, Obese Extremities: No edema, No Calf Tenderness Skin: No rashes, No breakdown Musculoskeletal: No Tenderness to Palpation of Joints or Extremities, No Muscle Wasting Neurological: Cranial nerves II-XII grossly intact, Motor Exam 5/5 strength throughout Psych/Mental Status: Normal Affect, Appropriate Microbiology Past 72 Hours 08/19/19 13:15 Mucosa - Nose Influenza Types A,B Direct FA (SUDARSHAN) - Final Laboratory Results 08/19/19 11:50: Urine Color Yellow, Urine Clarity Clear, Urine pH 6.0, Ur Specific Happy 1.010, Urine Protein 30 H, Urine Glucose (UA) Normal, Urine Ketones Negative, Urine Occult Blood 50 H, Urine Nitrite Negative, Urine Bilirubin Negative, Urine Urobilinogen Normal, Ur Leukocyte Esterase Negative, Urine RBC 0-5 SEEN, Urine WBC 0 SEEN, Ur Squamous Epith Cells 0-5 SEEN, Urine Bacteria 0 SEEN, Urine Mucus 0 SEEN 08/19/19 13:00: WBC 28.6 H, RBC 4.65, Hgb 13.6, Hct 43.4, MCV 93.3, MCH 29.2, MCHC 31.3 L, RDW Std Deviation 56.4 H, RDW Coeff of Jackie 16.8 H, Plt Count 261, MPV 9.5, Immature Gran % (Auto) 0.800, Neut % (Auto) 93.1 H, Lymph % (Auto) 1.3 L, [facility] % (Auto) 4.3, Eos % (Auto) 0.3, Baso % (Auto) 0.2, Absolute Neuts (auto) 26.7 H, Absolute Lymphs (auto) 0.37 L, Nucleated RBC % 0, Differential Comment COMMENT 08/19/19 13:00: PT 20.0 H, INR 1.7, APTT 27.9 08/19/19 13:00: Sodium 137, Potassium 4.6, Chloride 101, Carbon Dioxide 30.0, Anion Gap 6, BUN 54 H, Creatinine 1.92 H, Estim Creat Clear Calc 21.19, Est GFR (MDRD) Af Amer 33 L, Est GFR (MDRD) Non-Af 27 L, BUN/Creatinine Ratio 28.1 H, Glucose 120 H, Calcium 9.8, Total Bilirubin 0.90, AST 25, ALT 25, Alkaline Phosphatase 78, Troponin I 0.161 H, Total Protein 8.3 H, Albumin 3.8, Globulin 4.5 H, Albumin/Globulin Ratio 0.8 L, Lipase 684 H 08/19/19 13:00: Lactic Acid 2.1 H* 08/19/19 13:00: B-Natriuretic Peptide 1504.6 H Clinical Impression(s) from Imaging Studies Brain CT 08/19/19 12:42 IMPRESSION: Chronic involutional changes of the brain. Electronically Signed: Ed Fink, at 13:32 EST , Service support , Chest X-Ray 08/19/19 12:45 IMPRESSION: No significant interval change compared to prior. Cardiomegaly and mild pulmonary vascular congestion Electronically Signed: Juan Carlos Larson, at 14:06 EST Tel , Service support , Abdomen/Pelvis CT 08/19/19 14:34 IMPRESSION: Stable scarring at the lung bases. Stable left renal cyst. Scattered sigmoid diverticula. No acute pneumonia is seen. Electronically Signed: Ed Fink, at 15:28 EST , Service support , Chest CT 08/19/19 14:34 IMPRESSION: Findings suggest mild scarring at the lung bases. This is unchanged. No acute abnormality is seen. Electronically Signed: Ed Fink, at 15:36 EST , Service support , Current Medications Sodium Chloride () 1,000 mls @ 250 mls/hr IV .Q4H CHANNING Last Infusion: 08/19/19 14:26 Dose: Infused Documented by: Sodium Chloride () 10 - 40 ml IV UD PRN PRN Reason: SALINE FLUSH Assessment/Plan 1. Severe sepsis * Currently patient meets criteria for this * Source is not identified at this time * Chest CT was negative, urinalysis was negative * Plan is for Pipracil and/tazobactam * And check blood cultures * Adjust antibiotics accordingly. * Is possible patient's lactic acid could have been elevated due to her hypoxia that she had when she presented. But for the meantime until proven otherwise, we will treat the patient for underlying infection. * Patient was checked for influenza that was negative 2. Hypotension * Only resolved with IV fluids * Hold the furosemide for now * And put hold parameters for the carvedilol * Patient received an additional liter of fluid 3. Acute kidney injury * Creatinine is 1.92, baseline creatinine is around 1.48 where she was on the seventh * IV fluids and hold Lasix 4. Elevated troponin * May be skewed upwards due to the acute kidney injury but has not been this high before * If trends upward, consult cardiology * May be related with demand with the hypotension and hypoxia 5. Chronic additions: Heart failure with reduced ejection fraction, debility. Patient's Lasix will be held and will have patient see physical and Occupational Therapy. 6. VTE prophylaxis: Low risk as patient is already anticoagulated 7. Advanced care planning: Discussed with the patient and her . Patient is unsure. Therefore patient is can be full CODE STATUS at this time unless he indicates was otherwise. I encouraged him to talk further in regards to advanced directives at a later point. Code Visit Inpatient E&M: 81495 Init Hosp L3
[2019-08-19] MEDS: 0.9% Normal Saline 1,000 ML 100 ML IV (17:55)
[2019-08-19] MEDS: 0.9% Saline Lock 10 ML Syringe IV (17:56)
[2019-08-19 18:17] LABS: Lactic Acid 1.1 mmol/L (0.4-1.9)
[2019-08-19] MEDS: Amitriptyline 25 MG Tablet 50 MG PO (22:31)
[2019-08-19] MEDS: Gabapentin 100 MG Capsule PO (22:32)
[2019-08-19] MEDS: Pravastatin 40 MG Tablet PO (22:32)
[2019-08-19] MEDS: Levothyroxine 88 MCG Tablet PO (22:32)
[2019-08-19] MEDS: APIXABAN 2.5 MG TABLET PO (22:32)
[2019-08-19] MEDS: Polyethylene Glycol 3350 17 GM PACKET PO (22:32)
[2019-08-19] MEDS: Budesonide Respules 0.5 MG/2 ML AMPUL.NEB. INHALATION (23:00)
[2019-08-19] MEDS: BRIMONIDINE 0.15% 5 ML Bottle 1 DRP EACH EYE (23:11)
[2019-08-20] VITALS (14 sets, daily range): BP systolic 87–102; BP diastolic 54–74; PULSE 78–121; RESP 14–22; TEMP 36.4–36.7; O2SAT 92–100
--- NOTE | 2019-08-20 05:29 | NURSING ---
Pt sitting on side of bed. Fingers noted to be cyanotic; worse on left hand. Pt assisted to semi-fowlers position in bed. Cyanosis improved.
--- NOTE | 2019-08-20 05:36 | NURSING ---
Andrews removed around 04:45 this AM. Pt tolerated well.
[2019-08-20 06:56] LABS: Absolute Lymphocyte Count 0.95 X10^3/uL (0.83-4.51); Absolute Neutrophil Count 20.1 X10^3/uL (2.0-7.7); Basophil# 0.04 X10^3/uL; Basophil% 0.2 % (0-1); Eosinophil# 0.25 X10^3/uL; Eosinophils% 1.1 % (0-5); Hematocrit 38.7 % (37-47); Hemoglobin 12.2 g/dL (12.0-15.0); Lymphocyte # 0.95 X10^3/ul (4.0); Lymphocyte % 4.2 % (19-41); Mean Corp Hgb Conc 31.5 g/dL (32-36); Mean Corpuscular Hgb 29.4 pg (27.0-32.0); Mean Corpuscular Volume 93.3 fL (81-99); Mean Platelet Vol. 9.3 fl (6.2-12.0); Monocyte# 1.02 X10^3/uL; Monocyte% 4.5 % (0-10); NRBC Flagged by Analyzer 0 % (0-5); Neutrophil # 20.14 X10^3/uL (2.7-7.7); Neutrophil % 89.6 % (47-70); POSITIVE DIFFERENTIAL YES; Platelet Count 199 K/mm3 (150-450); RBC Distribution Width CV 16.9 % (11.6-14.6); RBC Distribution Width SD 56.5 fl (35.1-43.9); Red Blood Count 4.15 M/mm3 (4.2-5.4); White Blood Count 22.5 K/mm3 (4.4-11.0)
[2019-08-20 07:07] LABS: Differential Indicated SCAN CRITERIA MET
[2019-08-20] MEDS: Budesonide Respules 0.5 MG/2 ML AMPUL.NEB. INHALATION (07:07)
[2019-08-20 07:23] LABS: Anion Gap 5 (5-15); BUN 52 mg/dL (7-18); BUN/Creat Ratio 29.7 RATIO (10-20); Calcium,Total 8.7 mg/dL (8.5-10.1); Chloride 104 mmol/L (98-107); Creatinine, Serum 1.75 mg/dL (0.55-1.02); EST Glomerular Filtration Rate 30 mL/min (>60); Est Glom Filt Rate - Afr Amer 36 mL/min (>60); Estimated Creatinine Clearance 29.11 ml/min; Glucose 94 mg/dL (74-106); Lipase 383 U/L (73-393); Magnesium 3.1 mg/dL (1.6-2.6); Sodium Level 138 mmol/L (136-145)
--- NOTE | 2019-08-20 08:44 | PN_ITS ---
Patient Problems: Active and Suspected Problems (Last Reviewed 08/19/19 @ 17:37 by Kelvin Frazier DO) Hypotension (Acute) Leukocytosis (Acute) Subjective: Chief complaint: Follow-up after admission for hypotension, slightly worsening kidney function and abnormal cardiac enzymes. Patient seen and examined. No acute events overnight. Patient was discharged from the hospital 3 days ago after admission for acute CHF. Upon discharge that day, patient was discharged on Lasix 80 mg p.o. twice daily. Previously, patient was taking only 40 mg p.o. daily. Today, she denies any dizziness or lightheadedness. Denies chest pain or shortness of breath. Her blood pressure still on the lower side, borderline, other vital signs are stable. - Physical Exam Vitals/I&O's: Vital Signs Temp Pulse Resp BP Pulse Ox 97.7 F L 78 16 95/63 98 08/20/19 08:17 08/20/19 08:17 08/20/19 08:17 08/20/19 08:17 08/20/19 08:17 Oxygen Flow Rate (L/min) 2 Oxygen Delivery Method Room Air Weight: 166 lb 14.239 oz Body Mass Index (BMI) 23.6 Finger Stick Blood Glucose 146 Intake and Output for Last 24 Hours 08/18/19 08/19/19 08/20/19 23:59 23:59 23:59 Intake Total 1301.04 / 1301.04 1170.25 / 1170.25 Output Total 800 / 800 200 / 200 Balance 501.04 / 501.04 970.25 / 970.25 General: Alert, Oriented x3, Cooperative, No apparent distress HEENT: Atraumatic, PERRLA, EOMI, Normocephalic Oral: Moist Mucosa, No Gingival or Mucosal Lesions/ Ulcerations Neck: Supple, No JVD, Negative Carotid Bruits, Trachea Midline, Thyroid Normal Size and Texture Lungs: Clear to auscultation, Normal air movement, No rhonchi, No wheeze, No rales, Diminished Cardiovascular: Regular rate, Regular Rhythm, Normal S1, Normal S2, PMI Normal Abdomen: Bowel Sounds Present, Soft, Non Tender, Non-Distended, No Hepato- splenomegaly Extremities: No clubbing, No cyanosis, No edema Skin: No rashes, No breakdown Lymphatic: No Cervical, Supraclavicular, or Inguinal Adenopathy Neurological: Cranial nerves II-XII grossly intact, Motor Exam 5/5 strength throughout Psych/Mental Status: Normal Affect, Appropriate, Alert and oriented to time, abby ce, person, mood and affect Microbiology Past 72 Hours 08/19/19 13:15 Mucosa - Nose Influenza Types A,B Direct FA (SUDARSHAN) - Final Laboratory Results 08/19/19 11:50: Urine Color Yellow, Urine Clarity Clear, Urine pH 6.0, Ur Specific [place] 1.010, Urine Protein 30 H, Urine Glucose (UA) Normal, Urine Ketones Negative, Urine Occult Blood 50 H, Urine Nitrite Negative, Urine Bilirubin Negative, Urine Urobilinogen Normal, Ur Leukocyte Esterase Negative, Urine RBC 0-5 SEEN, Urine WBC 0 SEEN, Ur Squamous Epith Cells 0-5 SEEN, Urine Bacteria 0 SEEN, Urine Mucus 0 SEEN 08/19/19 13:00: WBC 28.6 H, RBC 4.65, Hgb 13.6, Hct 43.4, MCV 93.3, MCH 29.2, MCHC 31.3 L, RDW Std Deviation 56.4 H, RDW Coeff of Jackie 16.8 H, Plt Count 261, MPV 9.5, Immature Gran % (Auto) 0.800, Neut % (Auto) 93.1 H, Lymph % (Auto) 1.3 L, [place] % (Auto) 4.3, Eos % (Auto) 0.3, Baso % (Auto) 0.2, Absolute Neuts (auto) 26.7 H, Absolute Lymphs (auto) 0.37 L, Nucleated RBC % 0, Differential Comment COMMENT 08/19/19 13:00: PT 20.0 H, INR 1.7, APTT 27.9 08/19/19 13:00: Sodium 137, Potassium 4.6, Chloride 101, Carbon Dioxide 30.0, Anion Gap 6, BUN 54 H, Creatinine 1.92 H, Estim Creat Clear Calc 21.19, Est GFR (MDRD) Af Amer 33 L, Est GFR (MDRD) Non-Af 27 L, BUN/Creatinine Ratio 28.1 H, Glucose 120 H, Calcium 9.8, Total Bilirubin 0.90, AST 25, ALT 25, Alkaline Phosphatase 78, Troponin I 0.161 H, Total Protein 8.3 H, Albumin 3.8, Globulin 4.5 H, Albumin/Globulin Ratio 0.8 L, Lipase 684 H 08/19/19 13:00: Lactic Acid 2.1 H* 08/19/19 13:00: B-Natriuretic Peptide 1504.6 H 08/19/19 17:40: Lactic Acid 1.1 08/19/19 18:24: Troponin I 0.362 H 08/19/19 21:22: Troponin I 0.417 H 08/20/19 06:26: WBC 22.5 H, RBC 4.15 L, Hgb 12.2, Hct 38.7, MCV 93.3, MCH 29.4, MCHC 31.5 L, RDW Std Deviation 56.5 H, RDW Coeff of Jackie 16.9 H, Plt Count 199, MPV 9.3, Immature Gran % (Auto) 0.400, Neut % (Auto) 89.6 H, Lymph % (Auto) 4.2 L, [place] % (Auto) 4.5, Eos % (Auto) 1.1, Baso % (Auto) 0.2, Absolute Neuts (auto) 20.1 H, Absolute Lymphs (auto) 0.95, Nucleated RBC % 0, Differential Comment COMMENT 08/20/19 06:26: Sodium 138, Potassium 4.0, Chloride 104, Carbon Dioxide 29.0, Anion Gap 5, BUN 52 H, Creatinine 1.75 H, Estim Creat Clear Calc 29.11, Est GFR (MDRD) Af Amer 36 L, Est GFR (MDRD) Non-Af 30 L, BUN/Creatinine Ratio 29.7 H, Glucose 94, Calcium 8.7, Magnesium 3.1 H, Lipase 383 Clinical Impression(s) from Imaging Studies Brain CT 08/19/19 12:42 IMPRESSION: Chronic involutional changes of the brain. Electronically Signed: Ed Fink, at 13:32 EST , Service support , Chest X-Ray 08/19/19 12:45 IMPRESSION: No significant interval change compared to prior. Cardiomegaly and mild pulmonary vascular congestion Electronically Signed: Juan Carlos Larson, at 14:06 EST Tel , Service support , Abdomen/Pelvis CT 08/19/19 14:34 IMPRESSION: Stable scarring at the lung bases. Stable left renal cyst. Scattered sigmoid diverticula. No acute pneumonia is seen. Electronically Signed: Ed Batresalessandranamita, at 15:28 EST , Service support , Chest CT 08/19/19 14:34 IMPRESSION: Findings suggest mild scarring at the lung bases. This is unchanged. No acute abnormality is seen. Electronically Signed: Ed Hernandezbrian, at 15:36 EST , Service support , Current Medications Acetaminophen (Tylenol) 650 mg PO Q6H PRN PRN PRN Reason: Pain Score 1-3/Temp > 100.7 F Albuterol Sulfate (Ventolin Aerosols) 2.5 mg INHALATION Q2H PRN PRN PRN Reason: SOB/Wheezing Amiodarone HCl (Cordarone) 200 mg PO TID [facility] Stop: 08/24/19 06:01 Last Admin: 08/20/19 05:20 Dose: Not Given Documented by: Amiodarone HCl (Cordarone) 200 mg PO BID [facility] Stop: 09/07/19 10:01 Amiodarone HCl (Cordarone) 200 mg PO DAILY [facility] Amitriptyline HCl (Elavil) 50 mg PO QHS [facility] Last Admin: 08/19/19 22:31 Dose: 50 mg Documented by: Apixaban (Eliquis) 2.5 mg PO BID [facility] Last Admin: 08/19/19 22:32 Dose: 2.5 mg Documented by: Aspirin (Aspirin, Baby) 81 mg PO DAILY@0800 [facility] Benzonatate (Tessalon Perle) 100 mg PO TID PRN PRN Reason: COUGH Brimonidine Tartrate (Alphagan P 0.15%) 1 drop EACH EYE BID [facility] Last Admin: 08/19/19 23:11 Dose: 1 drop Documented by: Budesonide (Pulmicort Aerosol) 0.5 mg INHALATION BID [facility] Last Admin: 08/20/19 07:07 Dose: 0.5 mg Documented by: Carvedilol (Coreg) 6.25 mg PO BID [facility] Last Admin: 08/19/19 22:28 Dose: Not Given Documented by: Citalopram Hydrobromide (Celexa) 20 mg PO DAILY [facility] Fluticasone Propionate (Flonase Nasal [place]) 2 spray NASAL DAILY [facility] Gabapentin (Neurontin) 100 mg PO QHS [facility] Last Admin: 08/19/19 22:32 Dose: 100 mg Documented by: Glucagon () 1 mg IM .X1 PRN PRN Reason: Hypoglycemia Sodium Chloride () 1,000 mls @ 50 mls/hr IV .Q20H [facility] Stop: 08/20/19 13:40 Last Infusion: 08/20/19 08:39 Dose: Infused Documented by: Dextrose (Dextrose 10%-Water) 250 mls @ 999 mls/hr IV .Q16M PRN; Protocol PRN Reason: HYPOGLYCEMIA Sodium Chloride () 250 mls @ 15 mls/hr IV .[id number] PRN PRN Reason: Saline Flush Last Infusion: 08/20/19 08:33 Dose: Infused Documented by: Sodium Chloride () 250 mls @ 15 mls/hr IV .[id number] PRN PRN Reason: Additional IVPB Infusion Levothyroxine Sodium (Synthroid) 88 mcg PO QHS [facility] Last Admin: 08/19/19 22:32 Dose: 88 mcg Documented by: Magnesium Oxide (Mag-Ox 400) 400 mg PO QODAY [facility] Multivitamins ([facility]itamin) [facility] Multivitamins (Allbee W/C Caplet, Thera B Comp/C) 1 capsule PO DAILY [facility] Ondansetron HCl (Zofran) 4 mg IV Q8H PRN PRN PRN Reason: NAUSEA/VOMITING Polyethylene Glycol (Miralax) 17 gm PO QHS [facility] Last Admin: 08/19/19 22:32 Dose: 17 gm Documented by: Pravastatin Sodium (Pravachol) 40 mg PO QHS [facility] Last Admin: 08/19/19 22:32 Dose: 40 mg Documented by: Sodium Chloride () 10 - 40 ml IV UD PRN PRN Reason: SALINE FLUSH Last Admin: 08/19/19 17:56 Dose: 10 ml Documented by: Medical Necessity - Tobacco Use Smoking Status: Never smoker Assessment/Plan All Active Problems (Last Reviewed 08/19/19 @ 17:37 by Kelvin Frazier DO) Hypotension (Acute) Leukocytosis (Acute) This is a 79 years old female patient presented to the emergency room because of weakness and reported confusion, found to have hypotension, lactic acidosis and minimally worsening kidney function in the setting of recent discharge from the hospital after admission for acute on chronic CHF. #1 hypotension: This is probably due to overdiuresis. She was discharged 3 days ago on Lasix 80 mg p.o. twice daily. Previously, she was only on 40 mg p.o. daily. EKG revealed normal sinus rhythm, first-degree AV block, inverted T waves in V4, V5 and V6 and those are chronic, no acute changes. Lasix held and patient has been getting IV fluids. This morning, she has no symptoms. Plan: will give a bolus of normal saline 250 cc ?1. #2 lactic acidosis/leukocytosis: Lactic acid is 2.1, came down to 1.1 with gentle IV fluids for hydration. This is probably because of tissue hypoperfusion, I doubt sepsis or severe sepsis. Leukocytosis is likely reactive to hypotension and acute illness. Patient has been afebrile. Chest x-ray without acute findings. CT scan chest showed no infiltrate or consolidation. Urinalysis was clean. Plan: DC IV Zosyn, repeat CBC tomorrow morning. #3 recent acute on chronic combined systolic and diastolic CHF: At this time, patient seems to be over diuresed. She denies shortness of breath, pulse ox is maintained on room air. Lasix on hold at this time. Plan to continue Coreg. #4 stage III chronic kidney disease: Without significant worsening. Baseline creatinine has been around 1.3 to 1.8 mg/dL. Admission creatinine was 1.92, was slightly above her baseline. Today's creatinine is down to 1.75, improved. Plan as above. #5 paroxysmal atrial fibrillation: Rate is stable, blood pressure borderline. Continue Coreg and amiodarone for rate control and Eliquis for anticoagulation. #6 status post mitral valve replacement with bioprosthetic valve: Stable. #7 history of ventricular arrhythmia/cardiomyopathy: Status post ICD. Heart rate stable, blood pressure borderline, no evidence of cardiac arrhythmias on EKG. #8 history of DVT: Status post IVC, on Eliquis. #9 hypothyroidism: Stable, continue levothyroxine. #9 anxiety/depression: Continue Celexa. #10 DVT prophylaxis: Continue Eliquis. This note was generated with [employer] dictation software. It may contain incorrect words, spelling, and punctuation that were not noted in checking the note before signing. Code Visit Inpatient E&M: 32164 Subs Hosp L2
[2019-08-20] MEDS: Vitamin B Comp W-C Capsule 1 CAP PO (09:17)
[2019-08-20] MEDS: Multivitamins,Therapeutic Tablet 1 TABLET PO (09:17)
[2019-08-20] MEDS: Aspirin 81 MG TAB.CHEW PO (09:17)
[2019-08-20] MEDS: BRIMONIDINE 0.15% 5 ML Bottle 1 DRP EACH EYE ×2 (09:17→22:19)
[2019-08-20] MEDS: Citalopram 20 MG Tablet PO (09:17)
[2019-08-20] MEDS: APIXABAN 2.5 MG TABLET PO ×2 (09:18→22:20)
[2019-08-20] MEDS: Fluticasone 0.05% 1 SPRAY NASAL.SRY 2 SPRAY NASAL (09:18)
[2019-08-20] MEDS: 0.9% Saline Lock 10 ML Syringe IV ×2 (13:19→16:09)
[2019-08-20] MEDS: Hydrocortisone Sod Succinate 100 MG/2 ML Vial 50 MG IV ×2 (13:19→22:31)
--- NOTE | 2019-08-20 15:15 | PCM.CONS.C ---
Problem List (1) Hypotension Status: Acute (2) Cardiac dysrhythmia Status: Chronic Qualifiers: Arrhythmia type: atrial fibrillation Atrial fibrillation type: persistent (3) Implantable cardioverter-defibrillator (ICD) in situ Status: Chronic (4) Cardiomyopathy Status: Chronic Qualifiers: Cardiomyopathy type: dilated Qualified Code(s): I42.0 - Dilated cardiomyopathy (5) Chronic systolic (congestive) heart failure Status: Chronic (6) History of mitral valve replacement with porcine valve Status: Chronic Comment: mod-severe stenosis by SOL 08/11/15 s/p MVR porcine (7) Atherosclerotic heart disease of [place] coronary artery with angina pectoris Status: Chronic Qualifiers: [place] vs. transplanted heart: [place] heart Qualified Code(s): I25.119 - Atherosclerotic heart disease of [place] coronary artery with unspecified angina pectoris (8) Hyperlipemia Status: Chronic Qualifiers: Hyperlipidemia type: pure hypercholesterolemia Qualified Code(s): E78.00 - Pure hypercholesterolemia, unspecified (9) Hypothyroidism Status: Chronic Qualifiers: Hypothyroidism type: unspecified (10) Adrenal cortex insufficiency Status: Chronic Comment: appears secondary baseline cortisol low ACTH stim test normal (11) Renal insufficiency Status: Chronic (12) Bacteremia Status: Acute Reason for Consult Date of Consultation: 08/20/19 History of Present Illness: The patient is a 79 year old white female with a past cardiovascular history including mitral valve prolapse status post mitral valve replacement-bioprosthetic, a non-CAD related cardiomyopathy, chronic systolic mediated CHF, cardiac dysrhythmia with atrial and ventricular dysrhythmias, ICD placement, non-angiographically significant CAD, and hyperlipidemia who presents for evaluation of hypotension superimposed upon a history of hypothyroidism, adrenal insufficiency, and findings of bacteremia. The patient was recently evaluated at [facility]. From a cardiovascular standpoint she underwent noninvasive evaluation and adjustment of her medications. She was eventually released home. After being home for a short period of time she was reported, the day of admission, to have mental status changes and appeared to be somewhat blue in the lips and her fingertips. She was brought back to the emergency department for evaluation. There were concerns at that time of hypotension possibly secondary to dehydration as well as concerns of an underlying infectious disease issues such as a pneumonia and a possible sepsis event. She was placed in the PCU for further evaluation and care. She initiated medical management and gentle fluid resuscitation. She appeared to be somewhat symptomatically improved. This day she has been noted to have microbiology report with 1 of 2 blood culture bottles positive for gram-positive cocci in chains. At the moment she denies ongoing chest discomfort. She denies any acute shortness of breath/dyspnea. There has been no report of syncopal events or ICD discharge. She has had no peripheral pitting edema. Her family is with her. They states she appears to be more awake and alert today than yesterday. Her daughter from [place], via telephone conversation, stated when she was there recently she appeared somewhat lethargic as well as appeared at times blue in the lips in the fingertips. There was concerns of dehydration at that time and her diuretic dose was decreased. Her states that in June 2019 her corticosteroid supplement for her adrenal insufficiency was placed on hold. She had been doing well without it until her recent hospitalization. Cardiovascular tests at this time demonstrate indeterminate troponin I levels. Her BNP level was elevated at 1504 which was increased from her recent predischarge BNP level of 688. Her ECG demonstrated sinus rhythm with an underlying left IVCD pattern. Chest x-ray per radiology suggested no acute changes but possible increased pulmonary vascularity. A brain CT scan was performed with no acute GRANITE POL[employer]ER [employer]ACHINE changes being reported. [] Past Medical History Allergies/Adverse Reactions: Allergies levofloxacin [Levofloxacin] Allergy (Verified 08/19/19 11:24) Hives warfarin [From Coumadin] Allergy (Verified 08/19/19 11:24) Other torsemide [From Demadex] Adverse Reaction (Intermediate, Verified 08/19/19 11:24) Rash Home Medications: Ambulatory Orders Medication Instructions Recorded Multivitamins,Therapeutic 1 tab PO DAILY 11/16/15 [Multivitamin] albuterol sulfate 90 mcg/actuation 2 puff INHALATION BID PRN 09/10/17 aerosol inhaler pravastatin 40 mg tablet 40 mg PO QHS tab 09/11/17 fluticasone propionate 50 2 spray INTRANASAL DAILY 01/20/18 mcg/actuation nasal spray,suspension Brimonidine 0.15% [Alphagan P 1 drp EACH EYE BID 06/19/18 0.15%] Levothyroxine [Synthroid] 88 mcg PO QHS 06/22/18 gabapentin 100 mg capsule 100 mg PO QHS cap 07/15/18 Aspirin [Aspirin, Baby] 81 mg PO DAILY@0800 09/07/18 amitriptyline 50 mg tablet 50 mg PO QHS 10/15/18 apixaban 2.5 mg tablet 2.5 mg PO BID 10/15/18 Acetaminophen [Tylenol] 1,000 mg PO Q4H PRN PRN 11/09/18 Budesonide Aerosol [Pulmicort 0.5 mg INHALATION BID PRN 11/09/18 Respules] benzonatate 100 mg capsule 100 mg PO TID PRN 05/04/19 magnesium 250 mg tablet 250 mg PO QODAY 07/22/19 potassium chloride 20 mEq 20 meq PO BID #60 tab 07/22/19 tablet,extended release Citalopram [Celexa] 20 mg PO DAILY 08/13/19 Vitamin B Complex [B Complex] 1 tab PO DAILY 08/13/19 Lubiprostone [Amitiza] 8 mcg PO QHS 08/16/19 Polyethylene Glycol 3350 [Miralax] 17 gm PO QHS 08/16/19 Amiodarone HCl [Cordarone] 200 mg PO TID #90 tab 08/17/19 Carvedilol [Coreg (Beta Rolando)] 6.25 mg PO BID #90 tab 08/17/19 Furosemide [Lasix] 80 mg PO BID@1000,1800 #90 tab 08/17/19 Past Medical History (Chronic Problems): Chronic Problems (Last Reviewed 08/19/19 @ 17:37 by Kelvin Frazier DO) 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) Renal insufficiency (Chronic) Nonhealing ulcer of right lower extremity with fat layer exposed (Chronic) Anxiety and depression (Chronic) HTN (hypertension) (Chronic) Cardiac dysrhythmia (Chronic) intermediate designer current use of 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 (Chronic) DVT (deep venous thrombosis) (Chronic) Paroxysmal atrial fibrillation (Chronic) Chronic systolic (congestive) heart failure (Chronic) Menopausal osteoporosis (Chronic) Prediabetes (Chronic) Stroke (Chronic) Nonrheumatic mitral (valve) prolapse (Chronic) Hyperlipemia (Chronic) Atherosclerotic heart disease of [place] coronary artery with angina pectoris (Chronic) 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) Restrictive lung disease (Chronic) URMILA (obstructive sleep apnea) (Chronic) Hypothyroidism (Chronic) 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) mod-severe stenosis by SOL 1/1/16 s/p MVR porcine Pulmonary HTN (Chronic) Cardiomyopathy (Chronic) Adrenal cortex insufficiency (Chronic) appears secondary baseline cortisol low ACTH stim test normal Surgical History: cataract, hysterectomy, total hip arthroplasty - Bilateral., total knee arthroplasty - Bilateral., - - AICD, Bioprosthetic mitral valve replacement, recent right knee debridement and skin grafting. 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, Depression OPERATER History: No pertinent OPERATER history - *Family History Paternal Family History: Family History (Last Reviewed 08/19/19 @ 17:37 by Kelvin Frazier DO) Father CVA (cerebral vascular accident) Mother Cancer Sister Cancer Diabetes History Items: Stroke Sibling Family History: Family History (Last Reviewed 08/19/19 @ 17:37 by Kelvin Frazier DO) Father CVA (cerebral vascular accident) Mother Cancer Sister Cancer Diabetes History Items: Cancer, Diabetes Maternal Family History: Family History (Last Reviewed 08/19/19 @ 17:37 by Kelvin Frazier DO) Father CVA (cerebral vascular accident) Mother Cancer Sister Cancer Diabetes History Items: Cancer Lives: Spouse/ Significant Other Smoking Status: Never smoker Alcohol: None Drugs: None Review of Systems - Review of Systems General: Reports: Fatigue, Weakness, Weight Loss. Denies: Fever, Night Sweats Cardiovascular: Denies: Chest Discomfort, Shortness of Breath, Orthopnea, PND, Peripheral Edema, Palpitations, Lightheadedness, Dizziness, Near Syncope, Syncope Respiratory: Reports: Cough. Denies: Sputum Production, Hemoptysis Gastrointestinal: Denies: Hematemesis, Hematochezia, Melena Genitourinary: Denies: Dysuria, Hematuria Skin: Denies: Rash Subjectve: This is a 79-year-old white female who appears to be resting comfortably at the moment in no acute distress. Objective: Vital Signs Temp Pulse Resp BP Pulse Ox 97.6 F L 91 14 100/54 L 99 08/20/19 13:12 08/20/19 13:12 08/20/19 13:12 08/20/19 13:12 08/20/19 13:12 Oxygen Flow Rate (L/min) 2 Oxygen Delivery Method Room Air Weight: 166 lb 14.239 oz Body Mass Index (BMI) 23.6 Finger Stick Blood Glucose 146 Intake and Output for Last 24 Hours 08/18/19 08/19/19 08/20/19 23:59 23:59 23:59 Intake Total 1301.04 / 1301.04 1620.25 / 1620.25 Output Total 800 / 800 375 / 375 Balance 501.04 / 501.04 1245.25 / 1245.25 General: Awake, Alert, Oriented x 3, Cooperative, No Acute Distress HEENT: Atraumatic, Normocephalic, PERRL, EOMI, Sclera Non Icteric Oral: Moist Mucosa Neck: Supple, Good ROM, No JVD Lungs: Clear to auscultation Cardiovascular: Regular Rhythm, Premature Ectopic Beats, Normal S1, Normal S2 Abdomen: Bowel Sounds Present, Soft, Non Tender Extremities: No edema Psych/Mental Status: Appropriate 08/19/19 17:40: Lactic Acid 1.1 08/19/19 18:24: Troponin I 0.362 H 08/19/19 21:22: Troponin I 0.417 H 08/20/19 06:26: WBC 22.5 H, RBC 4.15 L, Hgb 12.2, Hct 38.7, MCV 93.3, MCH 29.4, MCHC 31.5 L, Plt Count 199, MPV 9.3, Immature Gran % (Auto) 0.400, Neut % (Auto) 89.6 H, Lymph % (Auto) 4.2 L, [place] % (Auto) 4.5, Eos % (Auto) 1.1, Baso % (Auto) 0.2, Absolute Neuts (auto) 20.1 H, Nucleated RBC % 0 08/20/19 06:26: Sodium 138, Potassium 4.0, Chloride 104, Carbon Dioxide 29.0, Anion Gap 5, BUN 52 H, Creatinine 1.75 H, Est GFR (MDRD) Af Amer 36 L, Est GFR (MDRD) Non-Af 30 L, BUN/Creatinine Ratio 29.7 H, Glucose 94, Calcium 8.7, Magnesium 3.1 H Rhythm: Sinus rhythm EKG: As noted above ECHO: 04-15-19: Left ventricle with global hypokinesis with an estimated LVEF 20% with a stable appearing bioprosthetic mitral valve apparatus with mild MR: Please see official report Stress Test: 09-16-2007: Pharmacologic stress nuclear imaging study compatible with subtle reversible lateral perfusion defect developing with adenosine suspicious for inducible ischemia Cardiac Cath: 05-29-2011: Mild to moderate global left ventricular systolic dysfunction with an estimated LVEF of 40% with left main coronary artery of 10% stenosis, LAD of 10 to 20% stenosis, LCx appearing angiographically normal, and RCA appearing angiographically normal CT Surgery: 10-09-2009: Mitral valve replacement with a 31 mm [place] medical epic porcine valve and closure of the left atrial appendage ICD: Medtronic: Protecta VR: Model number [id number]: Serial number [id number]: Date implanted: 04-29-13: Single-chamber implantable defibrillator CXR: As noted above Assessment/Plan 1. Hypotension The patient presented with hypotension. There is concern as to whether the patient became dehydrated at home secondary to a combination of her diuretic therapy and per her daughter via telephone stating that she is concerned her mother is not taking in adequate intake. Her states she lost approximately 5 pounds between her recent discharge and her admission. At the same time there were concerns of non-volume related issues such as underlying infectious disease issues and/or sepsis issues. At the present time from a cardiac standpoint she is being followed. Her diuretics have been placed on hold. She is received gentle IV hydration. She will be followed with respect to her vital signs and her clinical status. She will continue noncardiac evaluation and care. 2. Cardiac dysrhythmia She does have a history of underlying cardiac dysrhythmias both atrial and ventricular. At the moment she remains in sinus rhythm. She will continue her rate limiting therapy, antiarrhythmic therapy, and 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 therapy. She does have an ICD in place. 3. ICD She does have an ICD in place. It was interrogated recently during her recent hospitalization. It appeared to be functioning appropriately. She will continue to have it followed as deemed appropriate. 4. 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 She has been followed locally and at [facility] with respect to the CHF/heart failure area as well as interventional cardiology with respect to concerns of underlying structural heart disease/valvular heart disease. She has been recommended for continued conservative medical management. Thus her medications will be adjusted to help balance her vital signs, renal function, etc. 5. 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 Again she has been followed at a tertiary care center for this. At the present time there is been no immediate plans for any type of surgical or catheter-based intervention with respect to her mitral valve disease process. 6. Chronic systolic mediated CHF She does have episodes where she becomes volume overloaded as well as volume depleted. Her medications are constantly being adjusted to try and maintain volume status/a euvolemic state. At the moment she may be somewhat volume depleted. She is going to have her diuretics temporarily held. However she will eventually need to be back on diuretic therapy to avoid volume overload state. 7. CAD She has been described as having non-angiographically significant appearing CAD in the past. She will continue risk factor evaluation care as deemed appropriate. 8. Hyperlipidemia She will continue medical management with adjustment as needed. 9. Hypothyroidism She will continue medical therapy as deemed appropriate. 10. Adrenal insufficiency She has been evaluated by endocrinology for this in the past. She may needs stress steroid therapy at this time. She may need to be back on her adrenal supplements. 11. Renal insufficiency Her renal function will need to be followed as her clinical course progresses. This will need to be taken into consideration with respect to her medications. 12. Bacteremia She has 1 of 2 blood culture bottles positive for gram-positive cocci in chains. She will continue evaluation care per internal medicine. She is currently on IV antibiotic therapy. Comment: The patient's case has been discussed and reviewed with the patient, her spouse, her daughter, her sister, and Dr. Bhat. This note was generated using a voice recognition system and there may be incorrect words, spelling or punctuation that were not noted when reviewing the office note prior to saving.
--- NOTE | 2019-08-20 16:01 | CASEMGMT ---
Readmission chart review: Pt was initially admitted 08/13-08/17/19 for CHF exacerbation. Pt had f/u appt's scheduled and states took all meds once home. Pt then returned 08/19/19 for c/o CP, dyspnea, nausea, weakness. Pt was hypotensive and hypoxic. WBC is elevated but is trending down at this time. This RN CM to room to speak with pt and pt states no concerns with going home at discharge but that the physicians thought she may be here thru the weekend. Pt's lasix dose had been increased last visit from 40mg bid to 80mg bid. Pt was sent home with [facility] at discharge from last visit and resumption of care order placed at this time. Pt/ voice no further questions/concerns/needs at this time. SStaten JOSSE CM
--- NOTE | 2019-08-20 16:34 | CHAPLAIN ---
Type of Pastoral Visit _x__ Initial Visit ___ Follow-up Visit ___ On-call Visit ___ General Patient Visit ___ Spiritual Assessment ___ Family Conference ___ Bereavement ___ Rapid Response ___ Code Blue ___ Other (describe below) Pastoral Care Referral From _x__ Patient _x__ Family ___ Nurse ___ Physician ___ Credit Review Officer ___ Maid Supervisor ___ Other (describe below) Sacrament/Intervention _x__ Active listening ___ Anointing ___ Judaism ___ Bereavement ___ Communion ___ Shelly exploration ___ ___ Life review _x__ Prayer ___ Reconciliation ___ Sacrament of Sick ___ Supportive presence ___ Wedding ___ Other (describe below) Pastoral Comments
[2019-08-20] MEDS: Carvedilol 6.25 MG Tablet PO (22:20)
[2019-08-20] MEDS: Gabapentin 100 MG Capsule PO (22:21)
[2019-08-20] MEDS: Polyethylene Glycol 3350 17 GM PACKET PO (22:21)
[2019-08-20] MEDS: Amitriptyline 25 MG Tablet 50 MG PO (22:21)
[2019-08-20] MEDS: Levothyroxine 88 MCG Tablet PO (22:22)
[2019-08-20] MEDS: Pravastatin 40 MG Tablet PO (22:22)
[2019-08-20] MEDS: Amiodarone 200 MG Tablet PO (22:36)
--- NOTE | 2019-08-20 22:40 | EKG12_ITS ---
Test Reason : Blood Pressure : / mmHG Vent. Rate : 114 BPM Atrial Rate : 110 BPM P-R Int : 000 ms QRS Dur : 140 ms QT Int : 364 ms P-R-T Axes : 000 -42 114 degrees QTc Int : 501 ms Wide QRS rhythm Left axis deviation Left bundle branch block Abnormal ECG Confirmed by PATRICIA TIRADO, TRISTEN ([id number]), subeditor JAMAAL SAHNI ([id number]) on 08/23/2019 10:10:12 AM Referred By: JERAMY Confirmed By:TRISTEN GOMEZ MD
--- NOTE | 2019-08-20 22:48 | EKG12_ITS ---
Test Reason : RYTHM CHG Blood Pressure : / mmHG Vent. Rate : 121 BPM Atrial Rate : 107 BPM P-R Int : 000 ms QRS Dur : 136 ms QT Int : 368 ms P-R-T Axes : 000 -12 145 degrees QTc Int : 522 ms Junctional Tachycardia Left ventricular hypertrophy with QRS widening and repolarization abnormality Abnormal ECG When compared with ECG of 19-AUG-2019 13:36, MANUAL COMPARISON REQUIRED, DATA IS UNCONFIRMED Confirmed by ADAM TIRADO, LAUREN ([id number]), director strategy CAROLEE MARIEE ([id number] on 08/26/2019 1:38:43 PM Referred By: DR BARRIOS Confirmed By:LAUREN MEDINA MD
--- NOTE | 2019-08-20 23:13 | NURSING ---
Verbal report given to Abbie Ferguson RN. He will resume care of pt at this time.
[2019-08-21] VITALS (31 sets, daily range): BP systolic 81–124; BP diastolic 54–103; PULSE 65–90; RESP 15–23; TEMP 36.5–36.7; O2SAT 95–100
--- NOTE | 2019-08-21 00:13 | NURSING ---
Patient with blood pressure 84/54 MAP 53 and pulse 76 after receiving bolus of amiodarone 150mg IV. [employer] notified, Dr. Huang paged. Will wait until I speak with Dr. Huang before starting amiodarone drip.
--- NOTE | 2019-08-21 00:18 | NURSING ---
Dr. Huang returned page and was notified of patient's vital signs and mental status. Dr. Huang gave telephone order for 0.9% Normal Saline Bolus IV x1 now and then wants me to continue with the drip.
[2019-08-21 06:15] LABS: Absolute Lymphocyte Count 0.64 X10^3/uL (0.83-4.51); Absolute Neutrophil Count 14.5 X10^3/uL (2.0-7.7); Basophil# 0.01 X10^3/uL; Basophil% 0.1 % (0-1); Eosinophil# 0.01 X10^3/uL; Eosinophils% 0.1 % (0-5); Hematocrit 36.7 % (37-47); Hemoglobin 11.1 g/dL (12.0-15.0); Lymphocyte # 0.64 X10^3/ul (4.0); Mean Corp Hgb Conc 30.2 g/dL (32-36); Mean Corpuscular Volume 95.8 fL (81-99); Mean Platelet Vol. 9.7 fl (6.2-12.0); Monocyte# 0.84 X10^3/uL; Monocyte% 5.2 % (0-10); NRBC Flagged by Analyzer 0 % (0-5); Neutrophil # 14.54 X10^3/uL (2.7-7.7); Platelet Count 182 K/mm3 (150-450); RBC Distribution Width CV 16.9 % (11.6-14.6); RBC Distribution Width SD 58.2 fl (35.1-43.9); Red Blood Count 3.83 M/mm3 (4.2-5.4); White Blood Count 16.1 K/mm3 (4.4-11.0)
[2019-08-21] MEDS: Hydrocortisone Sod Succinate 100 MG/2 ML Vial 50 MG IV ×3 (06:16→22:22)
[2019-08-21 06:49] LABS: Anion Gap 4 (5-15); BUN 45 mg/dL (7-18); BUN/Creat Ratio 29.4 RATIO (10-20); Calcium,Total 8.5 mg/dL (8.5-10.1); Chloride 104 mmol/L (98-107); Creatinine, Serum 1.53 mg/dL (0.55-1.02); EST Glomerular Filtration Rate 35 mL/min (>60); Est Glom Filt Rate - Afr Amer 42 mL/min (>60); Glucose 134 mg/dL (74-106); Sodium Level 136 mmol/L (136-145)
--- NOTE | 2019-08-21 08:35 | PCM.PROGNOTE ---
Patient Problems: Active and Suspected Problems (Last Reviewed 08/19/19 @ 17:37 by Kelvin Frazier DO) Bacteremia (Acute) Hypotension (Acute) Leukocytosis (Acute) Subjective: Chief complaint: Follow-up after admission for hypotension, abnormal cardiac enzymes and she was found to have bacteremia without obvious source of infection. Overnight, she went into [facility] with RVR, started on IV amiodarone drip. Patient seen and examined. No acute events overnight. She denied any chest pain or shortness of breath. She denied dizziness or lightheadedness. Denied abdominal pain, nausea or vomiting. She is on IV amiodarone drip, heart rate is down to 60s, blood pressure better, afebrile, pulse ox is 97% on room air. - Physical Exam Vitals/I&O's: Vital Signs Temp Pulse Resp BP Pulse Ox 98.0 F 68 17 106/71 99 08/21/19 06:50 08/21/19 06:50 08/21/19 06:50 08/21/19 06:50 08/21/19 06:50 Oxygen Flow Rate (L/min) 2 Oxygen Delivery Method Room Air Weight: 166 lb 14.239 oz Body Mass Index (BMI) 23.6 Finger Stick Blood Glucose 146 Intake and Output for Last 24 Hours 08/19/19 08/20/19 08/21/19 23:59 23:59 23:59 Intake Total 1301.04 / 1301.04 1970.25 / 2210.25 963 / 963 Output Total 800 / 800 525 / 675 150 / 150 Balance 501.04 / 501.04 1445.25 / 1535.25 813 / 813 General: Alert, Oriented x3, Cooperative, No apparent distress HEENT: Atraumatic, PERRLA, EOMI, Normocephalic Oral: Moist Mucosa, No Gingival or Mucosal Lesions/ Ulcerations Neck: Supple, No JVD, Negative Carotid Bruits, Trachea Midline, Thyroid Normal Size and Texture Lungs: Clear to auscultation, No rhonchi, No wheeze, No rales, Diminished, - - Decreased breath sounds at the bases, otherwise clear. Cardiovascular: Regular rate, Regular Rhythm, Normal S1, Normal S2, PMI Normal Abdomen: Bowel Sounds Present, Soft, Non Tender, Non-Distended, No Hepato-splenomegaly Extremities: No clubbing, No cyanosis, No edema Skin: No rashes, No breakdown Lymphatic: No Cervical, Supraclavicular, or Inguinal Adenopathy Neurological: Cranial nerves II-XII grossly intact, Neuro grossly intact Psych/Mental Status: Normal Affect, Appropriate, Alert and oriented to time, place, person, mood and affect Microbiology Past 72 Hours 08/19/19 18:24 Blood Culture (Wb) - Right Forearm Blood Culture - Preliminary 08/19/19 13:00 Blood Culture (Wb) - Anticubital Left Blood Culture - Preliminary 08/19/19 13:15 Mucosa - Nose Influenza Types A,B Direct FA (SUDARSHAN) - Final Laboratory Results 08/21/19 05:30: WBC 16.1 H, RBC 3.83 L, Hgb 11.1 L, Hct 36.7 L, MCV 95.8, MCH 29.0, MCHC 30.2 L, RDW Std Deviation 58.2 H, RDW Coeff of Jackie 16.9 H, Plt Count 182, MPV 9.7, Immature Gran % (Auto) 0.600, Neut % (Auto) 90.0 H, Lymph % (Auto) 4.0 L, [place] % (Auto) 5.2, Eos % (Auto) 0.1, Baso % (Auto) 0.1, Absolute Neuts (auto) 14.5 H, Absolute Lymphs (auto) 0.64 L, Nucleated RBC % 0 08/21/19 05:30: Sodium 136, Potassium 4.0, Chloride 104, Carbon Dioxide 28.0, Anion Gap 4 L, BUN 45 H, Creatinine 1.53 H, Estim Creat Clear Calc 33.30, Est GFR (MDRD) Af Amer 42 L, Est GFR (MDRD) Non-Af 35 L, BUN/Creatinine Ratio 29.4 H, Glucose 134 H, Calcium 8.5, Troponin I 0.121 H Current Medications Acetaminophen (Tylenol) 650 mg PO Q6H PRN PRN PRN Reason: Pain Score 1-3/Temp > 100.7 F Albuterol Sulfate (Ventolin Aerosols) 2.5 mg INHALATION Q2H PRN PRN PRN Reason: SOB/Wheezing Amitriptyline HCl (Elavil) 50 mg PO QHS [facility] Last Admin: 08/20/19 22:21 Dose: 50 mg Documented by: Apixaban (Eliquis) 2.5 mg PO BID [facility] Last Admin: 08/20/19 22:20 Dose: 2.5 mg Documented by: Aspirin (Aspirin, Baby) 81 mg PO DAILY@0800 [facility] Last Admin: 08/20/19 09:17 Dose: 81 mg Documented by: Benzonatate (Tessalon Perle) 100 mg PO TID PRN PRN Reason: COUGH Brimonidine Tartrate (Alphagan P 0.15%) 1 drop EACH EYE BID [facility] Last Admin: 08/20/19 22:19 Dose: 1 drop Documented by: Carvedilol (Coreg) 6.25 mg PO BID [facility] Last Admin: 08/20/19 22:20 Dose: 6.25 mg Documented by: Citalopram Hydrobromide (Celexa) 20 mg PO DAILY [facility] Last Admin: 08/20/19 09:17 Dose: 20 mg Documented by: Fluticasone Propionate (Flonase Nasal [place]) 2 spray NASAL DAILY [facility] Last Admin: 08/20/19 09:18 Dose: 2 spray Documented by: Gabapentin (Neurontin) 100 mg PO QHS [facility] Last Admin: 08/20/19 22:21 Dose: 100 mg Documented by: Glucagon () 1 mg IM .X1 PRN PRN Reason: Hypoglycemia Hydrocortisone Sodium Succinate (Solu-Cortef) 50 mg IV Q8 [facility] Last Admin: 08/21/19 06:16 Dose: 50 mg Documented by: Dextrose (Dextrose 10%-Water) 250 mls @ 999 mls/hr IV .Q16M PRN; Protocol PRN Reason: HYPOGLYCEMIA Sodium Chloride () 250 mls @ 15 mls/hr IV .[id number] PRN PRN Reason: Saline Flush Last Infusion: 08/20/19 08:33 Dose: Infused Documented by: Sodium Chloride () 250 mls @ 15 mls/hr IV .[id number] PRN PRN Reason: Additional IVPB Infusion Piperacillin Sod/Tazobactam (Sod 3.375 gm/ Sodium Chloride) 50 mls @ 12.5 mls/hr IV Q8 [facility] Last Admin: 08/21/19 06:17 Dose: 12.5 mls/hr Documented by: Amiodarone HCl 360 mg/ (Dextrose) 200 mls @ 16.667 mls/hr CONT INF .Q12H [facility] Stop: 08/21/19 23:20 Last Admin: 08/21/19 06:50 Dose: 0.5 mg/min, 16.7 mls/hr Documented by: Levothyroxine Sodium (Synthroid) 88 mcg PO QHS [facility] Last Admin: 08/20/19 22:22 Dose: 88 mcg Documented by: Magnesium Oxide (Mag-Ox 400) 400 mg PO QODAY [facility]) [facility] Last Admin: 08/20/19 09:17 Dose: 1 tablet Documented by: Multivitamins (Allbee W/C Caplet, Thera B Comp/C) 1 capsule PO DAILY [facility] Last Admin: 08/20/19 09:17 Dose: 1 capsule Documented by: Ondansetron HCl (Zofran) 4 mg IV Q8H PRN PRN PRN Reason: NAUSEA/VOMITING Polyethylene Glycol (Miralax) 17 gm PO QHS [facility] Last Admin: 08/20/19 22:21 Dose: 17 gm Documented by: Pravastatin Sodium (Pravachol) 40 mg PO QHS [facility] Last Admin: 08/20/19 22:22 Dose: 40 mg Documented by: Sodium Chloride () 10 - 40 ml IV UD PRN PRN Reason: SALINE FLUSH Last Admin: 08/20/19 16:09 Dose: 10 ml Documented by: Medical Necessity - Tobacco Use Smoking Status: Never smoker Assessment/Plan All Active Problems (Last Reviewed 08/19/19 @ 17:37 by eKlvin Frazier DO) Bacteremia (Acute) Hypotension (Acute) Leukocytosis (Acute) This is a 79 years old female patient presented to the emergency room because of weakness and reported confusion, found to have hypotension, lactic acidosis and minimally worsening kidney function in the setting of recent discharge from the hospital after admission for acute on chronic CHF. #1 hypotension: Attributed to overdiuresis due to Lasix in addition to history of adrenal insufficiency. Patient received IV fluid boluses and she is on IV stress dose of steroids. Blood pressure improved, other vital signs are stable. EKG revealed normal sinus rhythm, first-degree AV block, inverted T waves in V4, V5 and V6 and those are chronic, no acute changes. She is off Lasix.. Plan to continue same treatment, monitor blood pressure. #2 lactic acidosis/leukocytosis: Lactic acid is 2.1, came down to 1.1 with gentle IV fluids for hydration. This is probably because of tissue hypoperfusion, I doubt sepsis or severe sepsis. Surprisingly, blood culture came back positive although there was no evidence of infection. Patient has been afebrile. Chest x-ray without acute findings. CT scan chest showed no infiltrate or consolidation. Urinalysis was clean. She is back on IV Zosyn empirically. #3 bacteremia: Blood culture revealed gram-positive cocci in chains. There is no source of infection. Chest x-ray, CT chest was unremarkable and urinalysis showed no evidence of UTI. Patient has been afebrile, WBC is trending down. Patient is on IV Zosyn empirically. Plan to continue IV Zosyn, infectious disease consult. 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 Now, she is on IV stress dose of steroids. Blood pressure improved. Plan to continue same treatment. #4 recent acute on chronic combined systolic and diastolic CHF: Stable at this time. She is off Lasix, on Coreg. #5 stage III chronic kidney disease: Without significant worsening. Baseline creatinine has been around 1.3 to 1.8 mg/dL. Admission creatinine was 1.92, was slightly above her baseline. Today's creatinine is down to 1.53,, improved. Plan as above. #6 paroxysmal atrial fibrillation with RVR: Overnight, patient went into A. fib with RVR, heart rate was in the 120s. Started on IV amiodarone drip. Today, heart rates down to 60s to 70s, blood pressure stable. Continue Coreg and amiodarone for rate control and Eliquis for anticoagulation. #7 status post mitral valve replacement with bioprosthetic valve: Stable. #8 history of ventricular arrhythmia/cardiomyopathy: Status post ICD. Heart rate stable, blood pressure stabilized, no evidence of cardiac arrhythmias on EKG. #9 history of DVT: Status post IVC, on Eliquis. #10 hypothyroidism: Stable, continue levothyroxine. #11 anxiety/depression: Continue Celexa. #12 DVT prophylaxis: Continue Eliquis. This note was generated with Basic[employer] software. It may contain incorrect words, spelling, and punctuation that were not noted in checking the note before signing. Code Visit Inpatient E&M: 64613 Subs Hosp L2
[2019-08-21 10:47] LABS: M R Staph aureus DNA By PCR Negative (Negative); Probe Check PASS; Specimen Processing Control PASS
[2019-08-21] MEDS: Fluticasone 0.05% 1 SPRAY NASAL.SRY 2 SPRAY NASAL (10:54)
[2019-08-21] MEDS: BRIMONIDINE 0.15% 5 ML Bottle 1 DRP EACH EYE ×2 (10:55→22:18)
[2019-08-21] MEDS: Aspirin 81 MG TAB.CHEW PO (10:56)
[2019-08-21] MEDS: Carvedilol 6.25 MG Tablet PO ×2 (10:56→22:21)
[2019-08-21] MEDS: Multivitamins,Therapeutic Tablet 1 TABLET PO (10:56)
[2019-08-21] MEDS: Magnesium Oxide 400 MG Tablet PO (10:56)
[2019-08-21] MEDS: APIXABAN 2.5 MG TABLET PO ×2 (10:56→22:21)
[2019-08-21] MEDS: Vitamin B Comp W-C Capsule 1 CAP PO (10:56)
[2019-08-21] MEDS: Citalopram 20 MG Tablet PO (10:57)
--- NOTE | 2019-08-21 15:09 | PCM.PN.CARD ---
Subjectve: The patient is awake, alert. She states overall she does feel better. She is not complaining of acute chest discomfort, difficulty breathing, ongoing palpitations, or lower extremity edema. She did note yesterday evening, when her rhythm changed, that she did not feel quite as well. Objective: Vital Signs Temp Pulse Resp BP Pulse Ox 97.7 F L 69 23 H 106/68 99 08/21/19 12:00 08/21/19 14:00 08/21/19 14:00 08/21/19 14:00 08/21/19 14:00 Oxygen Flow Rate (L/min) 2 Oxygen Delivery Method Room Air Weight: 166 lb 14.239 oz Body Mass Index (BMI) 23.6 Finger Stick Blood Glucose 146 Intake and Output for Last 24 Hours 08/19/19 08/20/19 08/21/19 23:59 23:59 23:59 Intake Total 1301.04 / 1301.04 1970.25 / 2210.25 1412.68 / 1412.68 Output Total 800 / 800 525 / 675 350 / 350 Balance 501.04 / 501.04 1445.25 / 1535.25 1062.68 / 1062.68 General: Awake, Alert, Oriented x 3, Cooperative, No Acute Distress HEENT: Atraumatic, Normocephalic, PERRL, EOMI, Sclera Non Icteric Oral: Moist Mucosa Neck: Supple, Good ROM, No JVD Lungs: Clear to auscultation Cardiovascular: Regular Rhythm, Normal S1, Normal S2 Abdomen: Bowel Sounds Present, Soft, Non Tender Extremities: No edema Psych/Mental Status: Appropriate 08/21/19 05:30: WBC 16.1 H, RBC 3.83 L, Hgb 11.1 L, Hct 36.7 L, MCV 95.8, MCH 29.0, MCHC 30.2 L, Plt Count 182, MPV 9.7, Immature Gran % (Auto) 0.600, Neut % (Auto) 90.0 H, Lymph % (Auto) 4.0 L, [place] % (Auto) 5.2, Eos % (Auto) 0.1, Baso % (Auto) 0.1, Absolute Neuts (auto) 14.5 H, Nucleated RBC % 0 08/21/19 05:30: Sodium 136, Potassium 4.0, Chloride 104, Carbon Dioxide 28.0, Anion Gap 4 L, BUN 45 H, Creatinine 1.53 H, Est GFR (MDRD) Af Amer 42 L, Est GFR (MDRD) Non-Af 35 L, BUN/Creatinine Ratio 29.4 H, Glucose 134 H, Calcium 8.5, Troponin I 0.121 H Rhythm: Sinus rhythm Medical Necessity - Tobacco Use Smoking Status: Never smoker Assessment/Plan 1. Hypotension The patient presented with hypotension. There is concern as to whether the patient became dehydrated at home secondary to a combination of her diuretic therapy and per her daughter via telephone stating that she is concerned her mother is not taking in adequate intake. Her states she lost approximately 5 pounds between her recent discharge and her admission. At the same time there were concerns of non-volume related issues such as underlying infectious disease issues and/or sepsis issues. At the present time from a cardiac standpoint she is being followed. Her diuretics have been placed on hold. She has received intermittent episodes of IV normal saline bolus. She will be followed with respect to her vital signs and her clinical status. She will continue noncardiac evaluation and care. She will eventually need her diuretics otherwise she will eventually develop volume overload. 2. Cardiac dysrhythmia She does have a history of underlying cardiac dysrhythmias both atrial and ventricular. She did have an episode yesterday evening where her cardiac rhythm changed back to an atrial dysrhythmia. She was placed back on IV amiodarone. At the moment she remains in sinus rhythm. She will continue her rate limiting therapy, antiarrhythmic therapy, and 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 therapy. She does have an ICD in place. 3. ICD She does have an ICD in place. It was interrogated recently during her recent hospitalization. It appeared to be functioning appropriately. She will continue to have it followed as deemed appropriate. 4. 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 She has been followed locally and at [facility] with respect to the CHF/heart failure area as well as interventional cardiology with respect to concerns of underlying structural heart disease/valvular heart disease. She has been recommended for continued conservative medical management. Thus her medications will be adjusted to help balance her vital signs, renal function, etc. 5. 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 Again she has been followed at a tertiary care center for this. At the present time there is been no immediate plans for any type of surgical or catheter-based intervention with respect to her mitral valve disease process. 6. Chronic systolic mediated CHF She does have episodes where she becomes volume overloaded as well as volume depleted. Her medications are constantly being adjusted to try and maintain volume status/a euvolemic state. She will continue medical management. Over time her diuretics will need to be restarted. 7. CAD She has been described as having non-angiographically significant appearing CAD in the past. She will continue risk factor evaluation care as deemed appropriate. 8. Hyperlipidemia She will continue medical management with adjustment as needed. 9. Hypothyroidism She will continue medical therapy as deemed appropriate. 10. Adrenal insufficiency She has been evaluated by endocrinology for this in the past. She may needs stress steroid therapy at this time. She may need to be back on her adrenal supplements. 11. Renal insufficiency Her renal function will need to be followed as her clinical course progresses. This will need to be taken into consideration with respect to her medications. 12. Bacteremia She has 1 of 2 blood culture bottles positive for gram-positive cocci in chains. She will continue evaluation care per internal medicine. She is currently on IV antibiotic therapy. Comment: The patient's case has been discussed and reviewed with the patient, her spouse, and her son. This note was generated using a voice recognition system and there may be incorrect words, spelling or punctuation that were not noted when reviewing the office note prior to saving.
[2019-08-21] MEDS: Amitriptyline 25 MG Tablet 50 MG PO (22:20)
[2019-08-21] MEDS: Levothyroxine 88 MCG Tablet PO (22:21)
[2019-08-21] MEDS: Gabapentin 100 MG Capsule PO (22:22)
[2019-08-21] MEDS: Pravastatin 40 MG Tablet PO (22:22)
[2019-08-21] MEDS: 0.9% Saline Lock 10 ML Syringe IV (22:27)
[2019-08-22] VITALS (12 sets, daily range): BP systolic 92–112; BP diastolic 64–78; PULSE 64–92; RESP 16–18; TEMP 36.3–36.7; O2SAT 94–98
[2019-08-22] MEDS: Amiodarone 200 MG Tablet PO ×4 (01:23→21:12)
[2019-08-22] MEDS: Hydrocortisone Sod Succinate 100 MG/2 ML Vial 50 MG IV ×3 (05:59→21:12)
--- NOTE | 2019-08-22 08:21 | PN_ITS ---
Patient Problems: Active and Suspected Problems (Last Reviewed 08/19/19 @ 17:37 by Kelvin Frazier DO) Bacteremia (Acute) Hypotension (Acute) Leukocytosis (Acute) Subjective: Chief complaint: Follow-up after admission for hypertension, abnormal cardiac enzymes, bacteremia and A. fib with RVR. Patient seen and examined. No acute events overnight. Today, she denied chest pain or shortness of breath. Denies dizziness or lightheadedness. She complained of constipation and she has been on laxatives. Blood pressure remained stable at her baseline, other vital signs are stable. - Physical Exam Vitals/I&O's: Vital Signs Temp Pulse Resp BP Pulse Ox 98.0 F 72 16 92/76 98 08/22/19 04:15 08/22/19 07:29 08/22/19 04:15 08/22/19 04:15 08/22/19 04:15 Oxygen Flow Rate (L/min) 2 Oxygen Delivery Method Room Air Weight: 166 lb 14.239 oz Body Mass Index (BMI) 23.6 Finger Stick Blood Glucose 146 Intake and Output for Last 24 Hours 08/20/19 08/21/19 08/22/19 23:59 23:59 23:59 Intake Total 1970.25 / 2210.25 1546.18 / 1746.18 590.2 / 590.2 Output Total 525 / 675 350 / 650 300 / 300 Balance 1445.25 / 1535.25 1196.18 / 1096.18 290.2 / 290.2 General: Alert, Oriented x3, Cooperative, No apparent distress HEENT: Atraumatic, PERRLA, EOMI, Normocephalic Oral: Moist Mucosa, No Gingival or Mucosal Lesions/ Ulcerations Neck: Supple, No JVD, Negative Carotid Bruits, Trachea Midline, Thyroid Normal Size and Texture Lungs: Clear to auscultation, Normal air movement, No rhonchi, No wheeze, No rales, Diminished Cardiovascular: Regular rate, Regular Rhythm, Normal S1, Normal S2, PMI Normal Abdomen: Bowel Sounds Present, Soft, Non Tender, Non-Distended, No Hepato- splenomegaly Extremities: No clubbing, No cyanosis, No edema Skin: No rashes, No breakdown Lymphatic: No Cervical, Supraclavicular, or Inguinal Adenopathy Neurological: Cranial nerves II-XII grossly intact, Neuro grossly intact Psych/Mental Status: Normal Affect, Appropriate, Alert and oriented to time, place, person, mood and affect Microbiology Past 72 Hours 08/19/19 18:24 Blood Culture (Wb) - Right Forearm Blood Culture - Preliminary Alpha Hemolytic Streptococcus 08/19/19 13:00 Blood Culture (Wb) - Anticubital Left Blood Culture - Preliminary Alpha Hemolytic Streptococcus 08/19/19 13:15 Mucosa - Nose Influenza Types A,B Direct FA (SUDARSHAN) - Final Laboratory Results 08/21/19 08:14: MRSA (PCR) Negative Current Medications Acetaminophen (Tylenol) 650 mg PO Q6H PRN PRN PRN Reason: Pain Score 1-3/Temp > 100.7 F Albuterol Sulfate (Ventolin Aerosols) 2.5 mg INHALATION Q2H PRN PRN PRN Reason: SOB/Wheezing Amiodarone HCl (Cordarone) 200 mg PO TID [facility] Last Admin: 08/22/19 05:58 Dose: 200 mg Documented by: Amitriptyline HCl (Elavil) 50 mg PO QHS [facility] Last Admin: 08/21/19 22:20 Dose: 50 mg Documented by: Apixaban (Eliquis) 2.5 mg PO BID [facility] Last Admin: 08/21/19 22:21 Dose: 2.5 mg Documented by: Aspirin (Aspirin, Baby) 81 mg PO DAILY@0800 [facility] Last Admin: 08/21/19 10:56 Dose: 81 mg Documented by: Benzonatate (Tessalon Perle) 100 mg PO TID PRN PRN Reason: COUGH Brimonidine Tartrate (Alphagan P 0.15%) 1 drop EACH EYE BID [facility] Last Admin: 08/21/19 22:18 Dose: 1 drop Documented by: Carvedilol (Coreg) 6.25 mg PO BID [facility] Last Admin: 08/21/19 22:21 Dose: 6.25 mg Documented by: Citalopram Hydrobromide (Celexa) 20 mg PO DAILY [facility] Last Admin: 08/21/19 10:57 Dose: 20 mg Documented by: Fluticasone Propionate (Flonase Nasal [place]) 2 spray NASAL DAILY [facility] Last Admin: 08/21/19 10:54 Dose: 2 spray Documented by: Gabapentin (Neurontin) 100 mg PO QHS [facility] Last Admin: 08/21/19 22:22 Dose: 100 mg Documented by: Glucagon () 1 mg IM .X1 PRN PRN Reason: Hypoglycemia Hydrocortisone Sodium Succinate (Solu-Cortef) 50 mg IV Q8 [facility] Last Admin: 08/22/19 05:59 Dose: 50 mg Documented by: Dextrose (Dextrose 10%-Water) 250 mls @ 999 mls/hr IV .Q16M PRN; Protocol PRN Reason: HYPOGLYCEMIA Sodium Chloride () 250 mls @ 15 mls/hr IV .[id number] PRN PRN Reason: Saline Flush Last Infusion: 08/20/19 08:33 Dose: Infused Documented by: Sodium Chloride () 250 mls @ 15 mls/hr IV .[id number] PRN PRN Reason: Additional IVPB Infusion Piperacillin Sod/Tazobactam (Sod 3.375 gm/ Sodium Chloride) 50 mls @ 12.5 mls/hr IV Q8 [facility] Last Admin: 08/22/19 05:58 Dose: 12.5 mls/hr Documented by: Levothyroxine Sodium (Synthroid) 88 mcg PO QHS [facility] Last Admin: 08/21/19 22:21 Dose: 88 mcg Documented by: Magnesium Oxide (Mag-Ox 400) 400 mg PO QODAY [facility] Last Admin: 08/21/19 10:56 Dose: 400 mg Documented by: Multivitamins ([facility]) [facility] Last Admin: 08/21/19 10:56 Dose: 1 tablet Documented by: Multivitamins (Allbee W/C Caplet, Thera B Comp/C) 1 capsule PO DAILY [facility] Last Admin: 08/21/19 10:56 Dose: 1 capsule Documented by: Ondansetron HCl (Zofran) 4 mg IV Q8H PRN PRN PRN Reason: NAUSEA/VOMITING Polyethylene Glycol (Miralax) 17 gm PO QHS [facility] Last Admin: 08/21/19 22:21 Dose: Not Given Documented by: Pravastatin Sodium (Pravachol) 40 mg PO QHS [facility] Last Admin: 08/21/19 22:22 Dose: 40 mg Documented by: Sodium Chloride () 10 - 40 ml IV UD PRN PRN Reason: SALINE FLUSH Last Admin: 08/21/19 22:27 Dose: 10 ml Documented by: Medical Necessity - Tobacco Use Smoking Status: Never smoker Assessment/Plan All Active Problems (Last Reviewed 08/19/19 @ 17:37 by Kelvin Frazier DO) Bacteremia (Acute) Hypotension (Acute) Leukocytosis (Acute) This is a 79 years old female patient presented to the emergency room because of weakness and reported confusion, found to have hypotension, lactic acidosis and minimally worsening kidney function in the setting of recent discharge from the hospital after admission for acute on chronic CHF. #1 hypotension: Attributed to overdiuresis due to Lasix in addition to history of adrenal insufficiency. Blood pressure remained stable at her baseline and she is asymptomatic. Diuretics on hold. EKG revealed normal sinus rhythm, first-degree AV block, inverted T waves in V4, V5 and V6 and those are chronic, no acute changes. She is off Lasix. Plan to continue same treatment, resume Lasix. #2 lactic acidosis/leukocytosis: Lactic acid is 2.1, came down to 1.1 with gentle IV fluids for hydration. This is probably because of tissue hypoperfusion, I doubt sepsis or severe sepsis but patient found to have bacteremia without source of infection. She remained afebrile, WBC is trending down. Chest x-ray without acute findings. CT scan chest showed no infiltrate or consolidation. Urinalysis was clean. Remained on IV Zosyn empirically. #3 bacteremia: She is on IV Zosyn. She remained afebrile. Blood culture revealed gram-positive cocci in chains. There is no source of infection. Chest x-ray, CT chest was unremarkable and urinalysis showed no evidence of UTI. Patient has been afebrile, WBC is trending down. Awaiting infectious disease recommendations. 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 Now, she is on IV stress dose of steroids. Blood pressure improved. Plan to continue same treatment. #4 recent acute on chronic combined systolic and diastolic CHF: Stable at this time. She is off Lasix, on Coreg. Plan to resume Lasix today. #5 stage III chronic kidney disease: Without significant worsening. Baseline creatinine has been around 1.3 to 1.8 mg/dL. Admission creatinine was 1.92, was slightly above her baseline. Yesterday's creatinine is down to 1.53,, improved. Plan as above. #6 paroxysmal atrial fibrillation with RVR: Heart rate slowed down, she is off IV amiodarone drip today. She is on p.o. amiodarone and Coreg for rate control, on Eliquis for anticoagulation. #7 status post mitral valve replacement with bioprosthetic valve: Stable. #8 history of ventricular arrhythmia/cardiomyopathy: Status post ICD. Heart rate stable, blood pressure stabilized, no evidence of cardiac arrhythmias on EKG. #9 history of DVT: Status post IVC, on Eliquis. #10 hypothyroidism: Stable, continue levothyroxine. #11 anxiety/depression: Continue Celexa. #12 DVT prophylaxis: Continue Eliquis. This note was generated with [employer] dictation software. It may contain incorrect words, spelling, and punctuation that were not noted in checking the note before signing. Code Visit Inpatient E&M: 56048 Subs Hosp L2
[2019-08-22] MEDS: Fluticasone 0.05% 1 SPRAY NASAL.SRY 2 SPRAY NASAL (09:33)
[2019-08-22] MEDS: BRIMONIDINE 0.15% 5 ML Bottle 1 DRP EACH EYE ×2 (09:33→21:11)
[2019-08-22] MEDS: Multivitamins,Therapeutic Tablet 1 TABLET PO (09:35)
[2019-08-22] MEDS: Citalopram 20 MG Tablet PO (09:35)
[2019-08-22] MEDS: Carvedilol 6.25 MG Tablet PO ×2 (09:35→21:12)
[2019-08-22] MEDS: Vitamin B Comp W-C Capsule 1 CAP PO (09:35)
[2019-08-22] MEDS: APIXABAN 2.5 MG TABLET PO ×2 (09:36→21:15)
[2019-08-22] MEDS: Aspirin 81 MG TAB.CHEW PO (09:36)
[2019-08-22] MEDS: Furosemide 40 MG Tablet PO (09:40)
[2019-08-22] MEDS: 0.9% Saline Lock 10 ML Syringe IV ×2 (12:32→21:11)
--- NOTE | 2019-08-22 13:55 | PCM.PN.CARD ---
Subjectve: The patient seems to be feeling somewhat better overall. She denies recurrent acute shortness of breath or dyspnea or ongoing palpitations. She has been up in the chair. She has been working with OT/PT in her chair. She has not been up and ambulating in the hallway today. Objective: Vital Signs Temp Pulse Resp BP Pulse Ox 97.4 F L 75 16 112/74 98 08/22/19 09:31 08/22/19 09:31 08/22/19 09:31 08/22/19 09:31 08/22/19 09:31 Oxygen Flow Rate (L/min) 2 Oxygen Delivery Method Room Air Weight: 166 lb 14.239 oz Body Mass Index (BMI) 23.6 Finger Stick Blood Glucose 146 Intake and Output for Last 24 Hours 08/20/19 08/21/19 08/22/19 23:59 23:59 23:59 Intake Total 1970.25 / 2210.25 1546.18 / 1746.18 690.2 / 690.2 Output Total 525 / 675 350 / 650 300 / 300 Balance 1445.25 / 1535.25 1196.18 / 1096.18 390.2 / 390.2 General: Awake, Alert, Oriented x 3, Cooperative, No Acute Distress HEENT: Atraumatic, Normocephalic, PERRL, EOMI, Sclera Non Icteric Oral: Moist Mucosa Neck: Supple, Good ROM Lungs: Clear to auscultation Cardiovascular: Regular Rhythm, Normal S1, Normal S2 Extremities: No edema Psych/Mental Status: Appropriate Rhythm: Sinus rhythm Medical Necessity - Tobacco Use Smoking Status: Never smoker Assessment/Plan 1. Hypotension Overall, her blood pressure, has improved. She is being restarted back on diuretic therapy with furosemide at 40 mg p.o. daily. Depending upon her volume status she may need to increase this dose and/or increase the frequency of her medication to avoid volume overload. 2. Cardiac dysrhythmia She does have a history of underlying cardiac dysrhythmias both atrial and ventricular. At the moment she remains in sinus rhythm. She will continue her rate limiting therapy, antiarrhythmic therapy, and 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 therapy. She does have an ICD in place. 3. ICD She does have an ICD in place. It was interrogated recently during her recent hospitalization. It appeared to be functioning appropriately. She will continue to have it followed as deemed appropriate. 4. 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 She has been followed locally and at [facility] with respect to the CHF/heart failure area as well as interventional cardiology with respect to concerns of underlying structural heart disease/valvular heart disease. She has been recommended for continued conservative medical management. Thus her medications will be adjusted to help balance her vital signs, renal function, etc. 5. 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 Again she has been followed at a tertiary care center for this. At the present time there is been no immediate plans for any type of surgical or catheter-based intervention with respect to her mitral valve disease process. 6. Chronic systolic mediated CHF She does have episodes where she becomes volume overloaded as well as volume depleted. Her medications are constantly being adjusted to try and maintain volume status/a euvolemic state. She will continue medical management. Her diuretics have been restarted as noted above. Again depending upon her clinical course she need an increase in dose and/or frequency to avoid volume overload. 7. CAD She has been described as having non-angiographically significant appearing CAD in the past. She will continue risk factor evaluation care as deemed appropriate. 8. Hyperlipidemia She will continue medical management with adjustment as needed. 9. Hypothyroidism She will continue medical therapy as deemed appropriate. 10. Adrenal insufficiency She has been evaluated by endocrinology for this in the past. She may needs stress steroid therapy at this time. She may need to be back on her adrenal supplements. 11. Renal insufficiency Her renal function will need to be followed as her clinical course progresses. This will need to be taken into consideration with respect to her medications. 12. Bacteremia She has 1 of 2 blood culture bottles positive for gram-positive cocci in chains. She will continue evaluation care per internal medicine. She is currently on IV antibiotic therapy. Comment: The patient's case has been discussed and reviewed with the patient and her spouse. This note was generated using a voice recognition system and there may be incorrect words, spelling or punctuation that were not noted when reviewing the office note prior to saving.
[2019-08-22] MEDS: Acetaminophen 325 MG Tablet 650 MG PO (15:15)
[2019-08-22] MEDS: Polyethylene Glycol 3350 17 GM PACKET PO (21:11)
[2019-08-22] MEDS: Levothyroxine 88 MCG Tablet PO (21:12)
[2019-08-22] MEDS: Gabapentin 100 MG Capsule PO (21:12)
[2019-08-22] MEDS: Pravastatin 40 MG Tablet PO (21:12)
[2019-08-22] MEDS: Amitriptyline 25 MG Tablet 50 MG PO (21:12)
--- NOTE | 2019-08-22 23:04 | CPS ---
set up pt own cpap machine added distilled water
[2019-08-23] VITALS (11 sets, daily range): BP systolic 100–126; BP diastolic 62–92; PULSE 60–78; RESP 16–18; TEMP 36.4–36.9; O2SAT 93–98
[2019-08-23] MEDS: Amiodarone 200 MG Tablet PO ×2 (05:42→13:29)
[2019-08-23 06:01] LABS: Absolute Lymphocyte Count 0.76 X10^3/uL (0.83-4.51); Absolute Neutrophil Count 12.3 X10^3/uL (2.0-7.7); Basophil# 0.01 X10^3/uL; Basophil% 0.1 % (0-1); Hematocrit 37.1 % (37-47); Hemoglobin 11.3 g/dL (12.0-15.0); Lymphocyte # 0.76 X10^3/ul (4.0); Lymphocyte % 5.5 % (19-41); Mean Corp Hgb Conc 30.5 g/dL (32-36); Mean Corpuscular Hgb 29.3 pg (27.0-32.0); Mean Corpuscular Volume 96.1 fL (81-99); Mean Platelet Vol. 10.1 fl (6.2-12.0); Monocyte# 0.69 X10^3/uL; NRBC Flagged by Analyzer 0 % (0-5); Neutrophil # 12.33 X10^3/uL (2.7-7.7); Neutrophil % 88.4 % (47-70); Platelet Count 203 K/mm3 (150-450); RBC Distribution Width CV 17.2 % (11.6-14.6); RBC Distribution Width SD 59.7 fl (35.1-43.9); Red Blood Count 3.86 M/mm3 (4.2-5.4); White Blood Count 13.9 K/mm3 (4.4-11.0)
[2019-08-23 06:36] LABS: Anion Gap 6 (5-15); BUN 34 mg/dL (7-18); BUN/Creat Ratio 25.6 RATIO (10-20); Calcium,Total 9.2 mg/dL (8.5-10.1); Chloride 106 mmol/L (98-107); Creatinine, Serum 1.33 mg/dL (0.55-1.02); EST Glomerular Filtration Rate 41 mL/min (>60); Est Glom Filt Rate - Afr Amer 50 mL/min (>60); Estimated Creatinine Clearance 38.31 ml/min; Glucose 129 mg/dL (74-106); Potassium 4.1 mmol/L (3.5-5.1); Sodium Level 141 mmol/L (136-145)
--- NOTE | 2019-08-23 08:33 | ECHOD_ITS ---
Reason For Study: Valve Replacement Eval, Bacteremia Procedure This was a 2D Doppler, Color Flow transthoracic echocardiogram. Did not use Definity due to increased PAP. Exam performed portable in patient room. Left Ventricle Severely dilated left ventricle. Severe global left ventricular systolic dysfunction. The estimated ejection fraction is 15 %. Right Ventricle Normal RV size. ICD or pacer leads identified within the right ventricle. Mild global right ventricular systolic dysfunction. Atria The left atrium is moderately enlarged. The right atrium is moderately enlarged. ICD or pacer leads identified within the right atrium. No doppler evidence for ASD. Mitral Valve Moderate mitral valve stenosis. Moderate (2+) eccentric mitral valve insufficiency. Stable appearing bioprosthetic mitral valve apparatus. Tricuspid Valve Normal tricuspid valve. Moderate (2+) tricuspid valve insufficiency. Right ventricular systolic pressure estimated to be 68 mmHg. Aortic Valve Trisinus/trileaflet aortic valve. Mild diffuse aortic valve thickening. Pulmonic Valve The pulmonic valve is not well visualized. Mild (1+) pulmonic valve insufficiency. Great Vessels Normal sized aortic root. Pericardium/Pleural No pericardial effusion. MMode/2D Measurements & Calculations LVIDd: 6.4 cm IVSd: 0.98 cm Ao root diam: 3.3 cm LVIDs: 6.0 cm LVPWd: 1.1 cm RVDd: 5.0 cm FS: 6.0 % LAV(MOD-bp): 70.5 ml LA A4 area: 22.8 cm2 LA dimension(2D): 3.8 cm LAV(MOD-bp) Indexed: 36.5 ml/m2 LAV(MOD-sp2): 64.6 ml LAV(MOD-sp4): 69.3 ml RA A4 area: 23.9 cm2 Time Measurements MV dec time: 0.11 sec Doppler Measurements & Calculations MV E max bari: 176.0 cm/sec Lat Peak E' Bari: 3.5 cm/sec Med Peak E' Bari: 3.0 cm/sec MV A max bari: 66.3 cm/sec E/E' lat: 49.6 E/E' med: 58.0 MV E/A: 2.7 MV V2 max: 202.8 cm/sec MV P1/2t max bari: 201.9 cm/sec Ao V2 max: 94.4 cm/sec MV max P.4 mmHg MV P1/2t: 77.8 msec Ao max P.6 mmHg MV V2 mean: 111.2 cm/sec MV dec slope: 759.6 cm/sec2 Ao V2 mean: 63.4 cm/sec MV mean P.9 mmHg Ao mean P.8 mmHg MV V2 VTI: 44.8 cm MVA(P1/2t): 2.8 cm2 Ao V2 VTI: 17.2 cm LV V1 max: 69.0 cm/sec PA V2 max: 61.6 cm/sec TR max bari: 364.7 cm/sec LV V1 max P.9 mmHg TR max P.2 mmHg Interpretation Summary Severely dilated left ventricle. Severe global left ventricular systolic dysfunction. The estimated ejection fraction is 15 %. Mild global right ventricular systolic dysfunction. The left atrium is moderately enlarged. The right atrium is moderately enlarged. Stable appearing bioprosthetic mitral valve apparatus. Moderate mitral valve stenosis. (Based upon spectral Doppler findings/mitral valve gradients). Moderate (2+) eccentric mitral valve insufficiency. Moderate (2+) tricuspid valve insufficiency. Mild diffuse aortic valve thickening. Mild (1+) pulmonic valve insufficiency. Right ventricular systolic pressure estimated to be 68 mmHg. Transmitral diastolic flow velocities suggest diastolic dysfunction (pseudonormal pattern). ICD or pacer leads identified within the right atrium ICD or pacer leads identified within the right ventricle. Comment: a) 2D echocardiographic images demonstrate a small mobile echodensity in the right atrium appearing associated with an ICD lead appearing c/w a small thrombus, although other etiologies of mobile mass lesions cannot be completely excluded. Of note, this finding was noted on a previous transthoracic echocardiogram from 12-25-2016. 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 c) 2D echocardiographic images demonstrate a mobile mass lesion associated with the bioprosthetic mitral valve apparatus measuring approximately 0.4 cm x 1.8 cm appearing compatible with a vegetation. Ordering Physician: Gurdeep Huang Referring Physician: Minerva Martin Performed By: Dorothea Blair, RDCS, RVT
--- NOTE | 2019-08-23 08:50 | PCM.PROGNOTE ---
Patient Problems: Active and Suspected Problems (Last Reviewed 08/19/19 @ 17:37 by Kelvin Frazier DO) Bacteremia (Acute) Hypotension (Acute) Leukocytosis (Acute) Subjective: Chief complaint: Follow-up after admission for hypertension, abnormal cardiac enzymes, bacteremia and A. fib with RVR. Patient seen and examined. No acute events overnight. Today, she is feeling much better. No more shortness of breath. She has been ambulating, no dizziness or lightheadedness. Denied chest pain or palpitation. Denied abdominal pain, nausea or vomiting. She has been afebrile. Blood pressure stabilized. - Physical Exam Vitals/I&O's: Vital Signs Temp Pulse Resp BP Pulse Ox 97.5 F L 71 18 112/67 93 08/23/19 08:48 08/23/19 08:48 08/23/19 08:48 08/23/19 08:48 08/23/19 08:48 Oxygen Flow Rate (L/min) 2 Oxygen Delivery Method Room Air Weight: 166 lb 14.239 oz Body Mass Index (BMI) 23.6 Finger Stick Blood Glucose 146 Intake and Output for Last 24 Hours 08/21/19 08/22/19 08/23/19 23:59 23:59 23:59 Intake Total 1546.18 / 1746.18 1050.2 / 1050.2 100 / 100 Output Total 350 / 650 900 / 900 Balance 1196.18 / 1096.18 150.2 / 150.2 100 / 100 General: Alert, Oriented x3, Cooperative, No apparent distress HEENT: Atraumatic, PERRLA, EOMI, Normocephalic Oral: Moist Mucosa, No Gingival or Mucosal Lesions/ Ulcerations Neck: Supple, No JVD, Negative Carotid Bruits, Trachea Midline, Thyroid Normal Size and Texture Lungs: Clear to auscultation, Normal air movement, No rhonchi, No wheeze, No rales, Diminished Cardiovascular: Regular rate, Regular Rhythm, Normal S1, Normal S2, PMI Normal Abdomen: Bowel Sounds Present, Soft, Non Tender, Non-Distended, No Hepato-splenomegaly Extremities: No clubbing, No cyanosis, No edema Skin: No rashes, No breakdown Lymphatic: No Cervical, Supraclavicular, or Inguinal Adenopathy Neurological: Cranial nerves II-XII grossly intact, Neuro grossly intact Psych/Mental Status: Normal Affect, Appropriate, Alert and oriented to time, place, person, mood and affect Microbiology Past 72 Hours 08/19/19 13:00 Blood Culture (Wb) - Anticubital Left Blood Culture - Final Streptococcus mitis/ oralis 08/19/19 18:24 Blood Culture (Wb) - Right Forearm Blood Culture - Final Alpha Hemolytic Streptococcus Laboratory Results 08/23/19 05:12: WBC 13.9 H, RBC 3.86 L, Hgb 11.3 L, Hct 37.1, MCV 96.1, MCH 29.3, MCHC 30.5 L, RDW Std Deviation 59.7 H, RDW Coeff of Jackie 17.2 H, Plt Count 203, MPV 10.1, Immature Gran % (Auto) 1.000 H, Neut % (Auto) 88.4 H, Lymph % (Auto) 5.5 L, [place] % (Auto) 5.0, Eos % (Auto) 0.0, Baso % (Auto) 0.1, Absolute Neuts (auto) 12.3 H, Absolute Lymphs (auto) 0.76 L, Nucleated RBC % 0 08/23/19 05:12: Sodium 141, Potassium 4.1, Chloride 106, Carbon Dioxide 29.0, Anion Gap 6, BUN 34 H, Creatinine 1.33 H, Estim Creat Clear Calc 38.31, Est GFR (MDRD) Af Amer 50 L, Est GFR (MDRD) Non-Af 41 L, BUN/Creatinine Ratio 25.6 H, Glucose 129 H, Calcium 9.2 Current Medications Acetaminophen (Tylenol) 650 mg PO Q6H PRN PRN PRN Reason: Pain Score 1-3/Temp > 100.7 F Last Admin: 08/22/19 15:15 Dose: 650 mg Documented by: Albuterol Sulfate (Ventolin Aerosols) 2.5 mg INHALATION Q2H PRN PRN PRN Reason: SOB/Wheezing Amiodarone HCl (Cordarone) 200 mg PO TID [facility] Last Admin: 08/23/19 05:42 Dose: 200 mg Documented by: Amitriptyline HCl (Elavil) 50 mg PO QHS [facility] Last Admin: 08/22/19 21:12 Dose: 50 mg Documented by: Apixaban (Eliquis) 2.5 mg PO BID [facility] Last Admin: 08/22/19 21:15 Dose: 2.5 mg Documented by: Aspirin (Aspirin, Baby) 81 mg PO DAILY@0800 [facility] Last Admin: 08/22/19 09:36 Dose: 81 mg Documented by: Benzonatate (Tessalon Perle) 100 mg PO TID PRN PRN Reason: COUGH Brimonidine Tartrate (Alphagan P 0.15%) 1 drop EACH EYE BID [facility] Last Admin: 08/22/19 21:11 Dose: 1 drop Documented by: Carvedilol (Coreg) 6.25 mg PO BID [facility] Last Admin: 08/22/19 21:12 Dose: 6.25 mg Documented by: Citalopram Hydrobromide (Celexa) 20 mg PO DAILY [facility] Last Admin: 08/22/19 09:35 Dose: 20 mg Documented by: Fluticasone Propionate (Flonase Nasal [place]) 2 spray NASAL DAILY [facility] Last Admin: 08/22/19 09:33 Dose: 2 spray Documented by: Gabapentin (Neurontin) 100 mg PO QHS [facility] Last Admin: 08/22/19 21:12 Dose: 100 mg Documented by: Glucagon () 1 mg IM .X1 PRN PRN Reason: Hypoglycemia Dextrose (Dextrose 10%-Water) 250 mls @ 999 mls/hr IV .Q16M PRN; Protocol PRN Reason: HYPOGLYCEMIA Sodium Chloride () 250 mls @ 15 mls/hr IV .[id number] PRN PRN Reason: Saline Flush Last Infusion: 08/20/19 08:33 Dose: Infused Documented by: Sodium Chloride () 250 mls @ 15 mls/hr IV .[id number] PRN PRN Reason: Additional IVPB Infusion Ceftriaxone Sodium 2 gm/ (Sodium Chloride) 50 mls @ 100 mls/hr IV Q24 [facility] Last Infusion: 08/22/19 13:09 Dose: Infused Documented by: Levothyroxine Sodium (Synthroid) 88 mcg PO QHS [facility] Last Admin: 08/22/19 21:12 Dose: 88 mcg Documented by: Magnesium Oxide (Mag-Ox 400) 400 mg PO QODAY [facility] Last Admin: 08/21/19 10:56 Dose: 400 mg Documented by: Multivitamins (Multivitamin) 1 tablet PO DAILYCM [facility] Last Admin: 08/22/19 09:35 Dose: 1 tablet Documented by: Multivitamins (Allbee W/C Caplet, Thera B Comp/C) 1 capsule PO DAILY [facility] Last Admin: 08/22/19 09:35 Dose: 1 capsule Documented by: Ondansetron HCl (Zofran) 4 mg IV Q8H PRN PRN PRN Reason: NAUSEA/VOMITING Polyethylene Glycol (Miralax) 17 gm PO QHS [facility] Last Admin: 08/22/19 21:11 Dose: 17 gm Documented by: Pravastatin Sodium (Pravachol) 40 mg PO QHS [facility] Last Admin: 08/22/19 21:12 Dose: 40 mg Documented by: Sodium Chloride () 10 - 40 ml IV UD PRN PRN Reason: SALINE FLUSH Last Admin: 08/22/19 21:11 Dose: 10 ml Documented by: Medical Necessity - Tobacco Use Smoking Status: Never smoker Assessment/Plan All Active Problems (Last Reviewed 08/19/19 @ 17:37 by Kelvin Frazier DO) Bacteremia (Acute) Hypotension (Acute) Leukocytosis (Acute) This is a 79 years old female patient presented to the emergency room because of weakness and reported confusion, found to have hypotension, lactic acidosis and minimally worsening kidney function in the setting of recent discharge from the hospital after admission for acute on chronic CHF. #1 hypotension: Attributed to overdiuresis due to Lasix in addition to history of adrenal insufficiency. Blood pressure stabilized, she is back on Lasix. She has no more symptoms. EKG revealed normal sinus rhythm, first-degree AV block, inverted T waves in V4, V5 and V6 and those are chronic, no acute changes. Plan to increase Lasix to 40 mg p.o. twice daily, continue other treatments. #2 lactic acidosis/leukocytosis: Lactic acid is 2.1, came down to 1.1 with gentle IV fluids for hydration. This is probably because of tissue hypoperfusion, bacteremia is the other differential. She remained afebrile, WBC continued to drop down. Chest x-ray without acute findings. CT scan chest showed no infiltrate or consolidation. Urinalysis was clean. She is on IV Rocephin. Patient may need to go for SOL for possible endocarditis. #3 Streptococcal bacteremia: She is on Rocephin based on cultures. She remained afebrile. Blood culture revealed alphahemolytic Streptococcus/Streptococcus mitis. There is no source of infection. Chest x-ray, CT chest was unremarkable and urinalysis showed no evidence of UTI. Patient may need SOL. Awaiting infectious disease recommendations. #4 history of adrenal insufficiency: IV hydrocortisone discontinued. Now, she is off steroids. Blood pressure stabilized. 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 Recommend to follow-up with her supervisor elementary education as outpatient. #4 recent acute on chronic combined systolic and diastolic CHF: Stable at this time. She is back on Lasix, on Coreg. Plan to increase Lasix to 40 mg p.o. twice daily. #5 stage III chronic kidney disease: Without significant worsening. Baseline creatinine has been around 1.3 to 1.8 mg/dL. Admission creatinine was 1.92, was slightly above her baseline. Today's creatinine is 1.33, improved. Plan as above. #6 paroxysmal atrial fibrillation with RVR: Rate is controlled. She is on p.o. amiodarone and Coreg for rate control, on Eliquis for anticoagulation. #7 status post mitral valve replacement with bioprosthetic valve: Stable. #8 history of ventricular arrhythmia/cardiomyopathy: Status post ICD. Heart rate stable, blood pressure stabilized, no evidence of cardiac arrhythmias on EKG. #9 history of DVT: Status post IVC, on Eliquis. #10 hypothyroidism: Stable, continue levothyroxine. #11 anxiety/depression: Continue Celexa. #12 DVT prophylaxis: Continue Eliquis. This note was generated with [employer] dictation software. It may contain incorrect words, spelling, and punctuation that were not noted in checking the note before signing. Code Visit Inpatient E&M: 27767 Subs Hosp L2
[2019-08-23] MEDS: Citalopram 20 MG Tablet PO (08:51)
[2019-08-23] MEDS: Fluticasone 0.05% 1 SPRAY NASAL.SRY 2 SPRAY NASAL (08:51)
[2019-08-23] MEDS: Vitamin B Comp W-C Capsule 1 CAP PO (08:51)
[2019-08-23] MEDS: APIXABAN 2.5 MG TABLET PO ×2 (08:51→21:42)
[2019-08-23] MEDS: Aspirin 81 MG TAB.CHEW PO (08:51)
[2019-08-23] MEDS: Multivitamins,Therapeutic Tablet 1 TABLET PO (08:51)
[2019-08-23] MEDS: Carvedilol 6.25 MG Tablet PO ×2 (08:51→21:41)
[2019-08-23] MEDS: Furosemide 40 MG Tablet PO ×2 (08:51→16:32)
[2019-08-23] MEDS: BRIMONIDINE 0.15% 5 ML Bottle 1 DRP EACH EYE ×2 (08:52→21:40)
[2019-08-23] MEDS: Magnesium Oxide 400 MG Tablet PO (08:58)
[2019-08-23] MEDS: 0.9% Saline Lock 10 ML Syringe IV (08:59)
--- NOTE | 2019-08-23 09:42 | PCM.PN.CARD ---
Subjectve: The patient states she is feeling better overall. She states she does not feel as weak as she did when she first came to the hospital. Objective: Vital Signs Temp Pulse Resp BP Pulse Ox 97.5 F L 71 18 112/67 93 08/23/19 08:48 08/23/19 08:48 08/23/19 08:48 08/23/19 08:48 08/23/19 08:48 Oxygen Flow Rate (L/min) 2 Oxygen Delivery Method Room Air Weight: 166 lb 14.239 oz Body Mass Index (BMI) 23.6 Finger Stick Blood Glucose 146 Intake and Output for Last 24 Hours 08/21/19 08/22/19 08/23/19 23:59 23:59 23:59 Intake Total 1546.18 / 1746.18 1050.2 / 1050.2 100 / 100 Output Total 350 / 650 900 / 900 Balance 1196.18 / 1096.18 150.2 / 150.2 100 / 100 General: Awake, Alert, Oriented x 3, Cooperative, No Acute Distress HEENT: Atraumatic, Normocephalic, PERRL, EOMI, Sclera Non Icteric Oral: Moist Mucosa Neck: Supple, Good ROM, No JVD Lungs: Clear to auscultation Cardiovascular: Regular Rhythm, Normal S1, Normal S2 Abdomen: Bowel Sounds Present, Soft, Non Tender Extremities: No edema Psych/Mental Status: Appropriate 08/23/19 05:12: WBC 13.9 H, RBC 3.86 L, Hgb 11.3 L, Hct 37.1, MCV 96.1, MCH 29.3, MCHC 30.5 L, Plt Count 203, MPV 10.1, Immature Gran % (Auto) 1.000 H, Neut % (Auto) 88.4 H, Lymph % (Auto) 5.5 L, [place] % (Auto) 5.0, Eos % (Auto) 0.0, Baso % (Auto) 0.1, Absolute Neuts (auto) 12.3 H, Nucleated RBC % 0 08/23/19 05:12: Sodium 141, Potassium 4.1, Chloride 106, Carbon Dioxide 29.0, Anion Gap 6, BUN 34 H, Creatinine 1.33 H, Est GFR (MDRD) Af Amer 50 L, Est GFR (MDRD) Non-Af 41 L, BUN/Creatinine Ratio 25.6 H, Glucose 129 H, Calcium 9.2 Rhythm: Sinus rhythm ECHO: Pending Medical Necessity - Tobacco Use Smoking Status: Never smoker Assessment/Plan 1. Hypotension Overall, her blood pressure, has improved. She is being restarted back on diuretic therapy with furosemide at 40 mg p.o. daily. She will be transition to twice daily therapy. Her volume status will need to be followed. 2. Cardiac dysrhythmia She does have a history of underlying cardiac dysrhythmias both atrial and ventricular. At the moment she remains in sinus rhythm. She will continue her rate limiting therapy, antiarrhythmic therapy, and 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 therapy. She does have an ICD in place. 3. ICD She does have an ICD in place. It was interrogated recently during her recent hospitalization. It appeared to be functioning appropriately. She will continue to have it followed as deemed appropriate. 4. 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 She has been followed locally and at [facility] with respect to the CHF/heart failure area as well as interventional cardiology with respect to concerns of underlying structural heart disease/valvular heart disease. She has been recommended for continued conservative medical management. Thus her medications will be adjusted to help balance her vital signs, renal function, etc. 5. 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 Again she has been followed at a tertiary care center for this. At the present time there is been no immediate plans for any type of surgical or catheter-based intervention with respect to her mitral valve disease process. 6. Chronic systolic mediated CHF She does have episodes where she becomes volume overloaded as well as volume depleted. Her medications are constantly being adjusted to try and maintain volume status/a euvolemic state. She will continue medical management. Her diuretics have been restarted as noted above. 7. CAD She has been described as having non-angiographically significant appearing CAD in the past. She will continue risk factor evaluation care as deemed appropriate. 8. Hyperlipidemia She will continue medical management with adjustment as needed. 9. Hypothyroidism She will continue medical therapy as deemed appropriate. 10. Adrenal insufficiency She has been evaluated by endocrinology for this in the past. She may needs stress steroid therapy at this time. She may need to be back on her adrenal supplements. 11. Renal insufficiency Her renal function will need to be followed as her clinical course progresses. This will need to be taken into consideration with respect to her medications. 12. Bacteremia He does have positive blood cultures. The etiology is unclear. From a cardiovascular standpoint, now that she appears to be symptomatically and hemodynamically improved, she will have further evaluation with a transthoracic echocardiogram to reassess her cardiac anatomy and physiology as well as to evaluate for any obvious cardiovascular involvement and her bacteremia. Comment: The patient's case has been discussed and reviewed with the patient and Dr. Bhat. This note was generated using a voice recognition system and there may be incorrect words, spelling or punctuation that were not noted when reviewing the office note prior to saving.
--- NOTE | 2019-08-23 14:34 | CASEMGMT ---
Per Dr. Rodriguez, pt will need 6 wks of iv antibx. This RN CM to room and pt/ would like to go to TCU at this time. Joselito SW aware, voices understanding and states their is a bed in TCU and precert is being started. SStaten RN CM
--- NOTE | 2019-08-23 14:47 | CHAPLAIN ---
Type of Pastoral Visit ___ Initial Visit _x__ Follow-up Visit ___ On-call Visit ___ General Patient Visit ___ Spiritual Assessment ___ Family Conference ___ Bereavement ___ Rapid Response ___ Code Blue ___ Other (describe below) Pastoral Care Referral From ___ Patient _x__ Family ___ Nurse ___ Physician ___ Hosiery Knitter ___ Youth Support Worker ___ Other (describe below) Sacrament/Intervention _x__ Active listening ___ Anointing ___ Zoroastrianism ___ Bereavement ___ Communion _x__ Shelly exploration ___ _x__ Life review _x__ Prayer ___ Reconciliation ___ Sacrament of Sick _x__ Supportive presence ___ Wedding ___ Other (describe below) Pastoral Comments spouse of patient requested presence and spiritual support of this overnight houseperson; pt and family has learned of diagnosis and gravity of the situation; pt is tearful and spouse is also shaken by the news; offer of calm presence, listening ear, reminders of scriptures and prayer given; pt is calm at this point
--- NOTE | 2019-08-23 14:53 | CASEMGMT ---
Patient wants to go to TCU now due to the IV antibiotics. MERCEDES spoke with Marcela in TCU and she would have a bed for patient. She will start the pre-cert. MERCEDES notified patient and her . MERCEDES also let them know that patient will stay at [facility] until insurance approves. Plan: TCU pending insurance approval. Giulia WALLACE
[2019-08-23] MEDS: Acetaminophen 325 MG Tablet 650 MG PO (15:33)
--- NOTE | 2019-08-23 15:33 | CON.PCM_ITS ---
Problem List (1) Bacteremia Status: Acute Reason for Consult: endocarditis Consulted by: Dr. Bhat History of Present Illness: The patient is a 79 year old F with h/o bioprosthetic mitral valve replacement, ICD, and CHF. Admitted 08/13-08/17 with CHF excerbation. Discharge home, came back 08/19 with confusion, dyspnea, some chills, and hypotension. Found to have SAY, bcx showed GPC, started on zosyn then ceftriaxone. Echo now shows mitral valve veg. Has stable ICD wire mass, suspected to be thrombus. Feeling better but did start having diarrhea today. No abd pain. Did have dental cleaning early July, did take amox for proph. Additional history obtained from at bedside. No new joint pain. No pain/swelling/redness over ICD. Full ROS performed and neg except as noted above. 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) DVT (deep venous thrombosis) (Chronic) Paroxysmal atrial fibrillation (Chronic) Chronic systolic (congestive) heart failure (Chronic) Menopausal osteoporosis (Chronic) Prediabetes (Chronic) Stroke (Chronic) Nonrheumatic mitral (valve) prolapse (Chronic) Hyperlipemia (Chronic) 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) Restrictive lung disease (Chronic) URMILA (obstructive sleep apnea) (Chronic) Hypothyroidism (Chronic) 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) mod-severe stenosis by SOL 08/11/15 s/p MVR porcine Pulmonary HTN (Chronic) Cardiomyopathy (Chronic) Adrenal cortex insufficiency (Chronic) appears secondary baseline cortisol low ACTH stim test normal Allergies/Adverse Reactions: Allergies levofloxacin [Levofloxacin] Allergy (Verified 08/19/19 11:24) Hives warfarin [From Coumadin] Allergy (Verified 08/19/19 11:24) Other torsemide [From Demadex] Adverse Reaction (Intermediate, Verified 08/19/19 11:24) Rash Home Medications: Ambulatory Orders Medication Instructions Recorded Multivitamins,Therapeutic 1 tab PO DAILY 11/16/15 [Multivitamin] albuterol sulfate 90 mcg/actuation 2 puff INHALATION BID PRN 09/10/17 aerosol inhaler pravastatin 40 mg tablet 40 mg PO QHS tab 09/11/17 fluticasone propionate 50 2 spray INTRANASAL DAILY 01/20/18 mcg/actuation nasal spray,suspension Brimonidine 0.15% [Alphagan P 1 drp EACH EYE BID 06/19/18 0.15%] Levothyroxine [Synthroid] 88 mcg PO QHS 06/22/18 gabapentin 100 mg capsule 100 mg PO QHS cap 07/15/18 Aspirin [Aspirin, Baby] 81 mg PO DAILY@0800 09/07/18 amitriptyline 50 mg tablet 50 mg PO QHS 10/15/18 apixaban 2.5 mg tablet 2.5 mg PO BID 10/15/18 Acetaminophen [Tylenol] 1,000 mg PO Q4H PRN PRN 11/09/18 Budesonide Aerosol [Pulmicort 0.5 mg INHALATION BID PRN 11/09/18 Respules] benzonatate 100 mg capsule 100 mg PO TID PRN 05/04/19 magnesium 250 mg tablet 250 mg PO QODAY 07/22/19 potassium chloride 20 mEq 20 meq PO BID #60 tab 07/22/19 tablet,extended release Citalopram [Celexa] 20 mg PO DAILY 08/13/19 Vitamin B Complex [B Complex] 1 tab PO DAILY 08/13/19 Lubiprostone [Amitiza] 8 mcg PO QHS 08/16/19 Polyethylene Glycol 3350 [Miralax] 17 gm PO QHS 08/16/19 Amiodarone HCl [Cordarone] 200 mg PO TID #90 tab 08/17/19 Carvedilol [Coreg (Beta Rolando)] 6.25 mg PO BID #90 tab 08/17/19 Furosemide [Lasix] 80 mg PO BID@1000,1800 #90 tab 08/17/19 Ceftriaxone 2 gm IV Q24 40 Days #40 vial 08/23/19 - Social History SMOKING STATUS:: Never smoker Vital Signs Temp Pulse Resp BP Pulse Ox 97.6 F L 67 16 100/62 98 08/23/19 15:32 08/23/19 15:32 08/23/19 15:32 08/23/19 15:32 08/23/19 15:32 Oxygen Flow Rate (L/min) 2 Oxygen Delivery Method Room Air Weight: 75.7 kg Body Mass Index (BMI) 23.6 Finger Stick Blood Glucose 146 Microbiology Past 72 Hours 08/19/19 13:00 Blood Culture - Final Blood Culture (Wb) - Anticubital Left Streptococcus mitis/ oralis 08/19/19 18:24 Blood Culture - Final Blood Culture (Wb) - Right Forearm Alpha Hemolytic Streptococcus Laboratory Tests Past 24 Hrs 08/23/19 08/23/19 05:12 05:12 WBC 13.9 H RBC 3.86 L Hgb 11.3 L Hct 37.1 MCV 96.1 MCH 29.3 MCHC 30.5 L RDW Std Deviation 59.7 H RDW Coeff of Jackie 17.2 H Plt Count 203 MPV 10.1 Immature Gran % (Auto) 1.000 H Neut % (Auto) 88.4 H Lymph % (Auto) 5.5 L Winn % (Auto) 5.0 Eos % (Auto) 0.0 Baso % (Auto) 0.1 Absolute Neuts (auto) 12.3 H Absolute Lymphs (auto) 0.76 L Nucleated RBC % 0 Sodium 141 Potassium 4.1 Chloride 106 Carbon Dioxide 29.0 Anion Gap 6 BUN 34 H Creatinine 1.33 H Estim Creat Clear Calc 38.31 Est GFR (MDRD) Af Amer 50 L Est GFR (MDRD) Non-Af 41 L BUN/Creatinine Ratio 25.6 H Glucose 129 H Calcium 9.2 - Other Studies Radiology: [] reviewed Other Studies: [] Route of nutrition/ use of supplements: [] Nutritional Intake: [] IV Site: [] Andrews Catheter: [] - Physical Exam General: Alert, Oriented x3, Cooperative, No apparent distress HEENT: Atraumatic, PERRLA, EOMI Neck: Supple, No Nodes Lungs: Clear to auscultation, Normal air movement Cardiovascular: Regular rate, Regular Rhythm, No murmurs Abdomen: Soft, Non Tender, Non-Distended Extremities: No edema Skin: No rashes IV Site: Peripheral, without redness Musculoskeletal: No Tenderness to Palpation of Joints or Extremities Neurological: Cranial nerves II-XII grossly intact - Assessment/Plan Antibiotics: [] Assessment/Plan: [] Active and Suspected Problems (Last Reviewed 08/19/19 @ 17:37 by Kelvin Frazier DO) Bacteremia (Acute) Hypotension (Acute) Leukocytosis (Acute) Strep mitis bioprosthetic mitral valve endocarditis - Possible oral source with recent dental cleaning, but she reports compliance with abx prophylaxis. Cont ceftriaxone. Strep less than 0.06 SUDARSHAN to PCN. Will avoid aminoglycoside due to risk of nephrotoxicity, particularly with her recovering SAY. Repeat bcx today to document clearance. Plan will be for 6 weeks of iv ceftriaxone. Typical recommendation with endocarditis would be for removal/replacement of cardiac devices, but risks may be higher than the benefits for her given her comorbidities. diarrhea - had recently been given mag-ox and miralax. Will monitor. Will follow, thank you. D/w Dr. Huang.
[2019-08-23] MEDS: Amitriptyline 25 MG Tablet 50 MG PO (21:41)
[2019-08-23] MEDS: Gabapentin 100 MG Capsule PO (21:42)
[2019-08-23] MEDS: Pravastatin 40 MG Tablet PO (21:42)
[2019-08-23] MEDS: Levothyroxine 88 MCG Tablet PO (21:43)
[2019-08-24] VITALS (8 sets, daily range): BP systolic 95–127; BP diastolic 60–77; PULSE 73–85; RESP 16–18; TEMP 36.3–36.8; O2SAT 93–97
[2019-08-24 06:06] LABS: Absolute Lymphocyte Count 1.44 X10^3/uL (0.83-4.51); Basophil# 0.03 X10^3/uL; Basophil% 0.2 % (0-1); Eosinophil# 0.21 X10^3/uL; Eosinophils% 1.5 % (0-5); Hematocrit 39.9 % (37-47); Hemoglobin 12.3 g/dL (12.0-15.0); Lymphocyte # 1.44 X10^3/ul (4.0); Lymphocyte % 10.2 % (19-41); Mean Corp Hgb Conc 30.8 g/dL (32-36); Mean Corpuscular Volume 94.1 fL (81-99); Mean Platelet Vol. 9.8 fl (6.2-12.0); Monocyte# 1.22 X10^3/uL; Monocyte% 8.7 % (0-10); NRBC Flagged by Analyzer 0 % (0-5); Neutrophil # 10.99 X10^3/uL (2.7-7.7); Neutrophil % 78.1 % (47-70); Platelet Count 210 K/mm3 (150-450); RBC Distribution Width CV 17.4 % (11.6-14.6); RBC Distribution Width SD 58.4 fl (35.1-43.9); Red Blood Count 4.24 M/mm3 (4.2-5.4); White Blood Count 14.1 K/mm3 (4.4-11.0)
[2019-08-24 06:33] LABS: Anion Gap 4 (5-15); BUN 33 mg/dL (7-18); BUN/Creat Ratio 26.6 RATIO (10-20); Calcium,Total 8.8 mg/dL (8.5-10.1); Chloride 107 mmol/L (98-107); Creatinine, Serum 1.24 mg/dL (0.55-1.02); EST Glomerular Filtration Rate 45 mL/min (>60); Est Glom Filt Rate - Afr Amer 54 mL/min (>60); Estimated Creatinine Clearance 41.09 ml/min; Glucose 72 mg/dL (74-106); Potassium 3.3 mmol/L (3.5-5.1); Sodium Level 140 mmol/L (136-145)
[2019-08-24] MEDS: Aspirin 81 MG TAB.CHEW PO (08:34)
[2019-08-24] MEDS: Acetaminophen 325 MG Tablet 650 MG PO (08:34)
[2019-08-24] MEDS: Vitamin B Comp W-C Capsule 1 CAP PO (08:34)
[2019-08-24] MEDS: Amiodarone 200 MG Tablet PO (08:35)
[2019-08-24] MEDS: Citalopram 20 MG Tablet PO (08:36)
[2019-08-24] MEDS: BRIMONIDINE 0.15% 5 ML Bottle 1 DRP EACH EYE (08:37)
[2019-08-24] MEDS: Carvedilol 6.25 MG Tablet PO (08:37)
[2019-08-24] MEDS: Multivitamins,Therapeutic Tablet 1 TABLET PO (08:37)
[2019-08-24] MEDS: APIXABAN 2.5 MG TABLET PO (08:37)
[2019-08-24] MEDS: Furosemide 40 MG Tablet PO (08:38)
[2019-08-24] MEDS: Fluticasone 0.05% 1 SPRAY NASAL.SRY 2 SPRAY NASAL (08:38)
--- NOTE | 2019-08-24 09:18 | PN.CARD_ITS ---
Subjectve: The patient states she feels tired and weak. She states she has had recurrent episodes of loose bowel movements. She has had no new chest discomfort and no new acute shortness of breath/dyspnea. Objective: Vital Signs Temp Pulse Resp BP Pulse Ox 98.3 F 85 16 127/77 H 95 08/24/19 08:32 08/24/19 08:32 08/24/19 08:32 08/24/19 08:32 08/24/19 08:32 Oxygen Flow Rate (L/min) 2 Oxygen Delivery Method Room Air Weight: 166 lb 14.239 oz Body Mass Index (BMI) 23.6 Finger Stick Blood Glucose 146 Intake and Output for Last 24 Hours 08/22/19 08/23/19 08/24/19 23:59 23:59 23:59 Intake Total 1050.2 / 1050.2 1660 / 1660 340 / 340 Output Total 900 / 900 500 / 500 300 / 300 Balance 150.2 / 150.2 1160 / 1160 40 / 40 General: Awake, Alert, Oriented x 3, Cooperative HEENT: Atraumatic, Normocephalic, PERRL, EOMI, Sclera Non Icteric Oral: Moist Mucosa Neck: Supple, Good ROM Lungs: Diminished David Bases Cardiovascular: Regular Rhythm, Premature Ectopic Beats, Normal S1, Normal S2 Abdomen: Bowel Sounds Present, Soft, Non Tender Extremities: No edema Psych/Mental Status: Depressed 08/24/19 05:33: WBC 14.1 H, RBC 4.24, Hgb 12.3, Hct 39.9, MCV 94.1, MCH 29.0, MCHC 30.8 L, Plt Count 210, MPV 9.8, Immature Gran % (Auto) 1.300 H, Neut % (Auto) 78.1 H, Lymph % (Auto) 10.2 L, [place] % (Auto) 8.7, Eos % (Auto) 1.5, Baso % (Auto) 0.2, Absolute Neuts (auto) 11.0 H, Nucleated RBC % 0 08/24/19 05:33: Sodium 140, Potassium 3.3 L, Chloride 107, Carbon Dioxide 29.0, Anion Gap 4 L, BUN 33 H, Creatinine 1.24 H, Est GFR (MDRD) Af Amer 54 L, Est GFR (MDRD) Non-Af 45 L, BUN/Creatinine Ratio 26.6 H, Glucose 72 L, Calcium 8.8 Rhythm: Sinus rhythm; PACs/PVCs Medical Necessity - Tobacco Use Smoking Status: Never smoker Assessment/Plan 1. Cardiac dysrhythmia She does have a history of underlying cardiac dysrhythmias both atrial and ventricular. At the moment she remains in sinus rhythm. She will continue her rate limiting therapy, antiarrhythmic therapy, and 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 therapy. She does have an ICD in place. 2. ICD She does have an ICD in place. It was interrogated recently during her recent hospitalization. It appeared to be functioning appropriately. She will continue to have it followed as deemed appropriate. 3. 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 Her transthoracic echocardiogram from yesterday demonstrated her estimated LVEF to be approximately 15%. She has been followed locally and at [facility] with respect to the CHF/heart failure area as well as interventional cardiology with respect to concerns of underlying structural heart disease/valvular heart disease. She has been recommended for continued conservative medical management. Thus her medications will be adjuste d to help balance her vital signs, renal function, etc. 4. 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 This includes an element of bioprosthetic mitral valve stenosis. Again she has been followed at a tertiary care center for this. At the present time there is been no immediate plans for any type of surgical or catheter-based intervention with respect to her mitral valve disease process. 5. Chronic systolic mediated CHF She does have episodes where she becomes volume overloaded as well as volume depleted. Her medications are constantly being adjusted to try and maintain volume status/a euvolemic state. She will continue medical management. Diuretics have been restarted, however, her dose may need to be adjusted downward secondary to her ongoing diarrhea to avoid dehydration. This may change depending upon her clinical course. 6. CAD She has been described as having non-angiographically significant appearing CAD in the past. She will continue risk factor evaluation care as deemed appropriate. 7. Hyperlipidemia She will continue medical management with adjustment as needed. 8. Hypothyroidism She will continue medical therapy as deemed appropriate. 9. Adrenal insufficiency She has been evaluated by endocrinology for this in the past. She may needs stress steroid therapy at this time. She may need to be back on her adrenal supplements. 10. Renal insufficiency Her renal function will need to be followed as her clinical course progresses. This will need to be taken into consideration with respect to her medications. 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 She has been evaluated by infectious disease. She has been given the diagnosis of infectious endocarditis. She has been placed on IV antibiotic [id number]. Based upon her known cardiovascular history she has been considered a high risk for CT surgery in the past as well as now. Thus it appears the consensus is to attempt IV antibiotics and monitor the patient with surveillance laboratory studies, blood cultures, and possibly echocardiograms, with the hopes that this will take care of her infectious endocarditis and she can avoid high risk CT surgery. Comment: The patient's case has been discussed and reviewed with the patient. This note was generated using a voice recognition system and there may be incorrect words, spelling or punctuation that were not noted when reviewing the office note prior to saving.
--- NOTE | 2019-08-24 09:26 | CASEMGMT ---
MERCEDES called Marcela in TCU and left her a voice mail letting her know patient will now be on IV Ampicillin and not Ceftriaxone. MERCEDES let her know it will be Ampicillin 2 gm q8. Giulia DOBSON CONTRACT POST OFFICE CLERK
--- NOTE | 2019-08-24 09:53 | PN.ID_ITS ---
Patient Problems: Active and Suspected Problems (Last Reviewed 08/19/19 @ 17:37 by Kelvin Frazier DO) Bacteremia (Acute) Hypotension (Acute) Leukocytosis (Acute) Subjective: Still loose stool, no fever, no abd pain - Physical Exam Vitals/I&O's: Vital Signs Temp Pulse Resp BP Pulse Ox 98.3 F 85 16 127/77 H 95 08/24/19 08:32 08/24/19 08:32 08/24/19 08:32 08/24/19 08:32 08/24/19 08:32 Oxygen Flow Rate (L/min) 2 Oxygen Delivery Method Room Air Weight: 75.7 kg Body Mass Index (BMI) 23.6 Finger Stick Blood Glucose 146 Intake and Output for Last 24 Hours 08/22/19 08/23/19 08/24/19 23:59 23:59 23:59 Intake Total 1050.2 / 1050.2 1660 / 1660 340 / 340 Output Total 900 / 900 500 / 500 300 / 300 Balance 150.2 / 150.2 1160 / 1160 40 / 40 General: Alert, Cooperative, No apparent distress Lungs: Clear to auscultation, Normal air movement Cardiovascular: Regular rate, Regular Rhythm Abdomen: Soft, Non Tender, Non-Distended Skin: No rashes Microbiology Past 72 Hours 08/19/19 13:00 Blood Culture (Wb) - Anticubital Left Blood Culture - Final Streptococcus mitis/ oralis 08/19/19 18:24 Blood Culture (Wb) - Right Forearm Blood Culture - Final Alpha Hemolytic Streptococcus Laboratory Results 08/24/19 05:33: WBC 14.1 H, RBC 4.24, Hgb 12.3, Hct 39.9, MCV 94.1, MCH 29.0, MCHC 30.8 L, RDW Std Deviation 58.4 H, RDW Coeff of Jackie 17.4 H, Plt Count 210, MPV 9.8, Immature Gran % (Auto) 1.300 H, Neut % (Auto) 78.1 H, Lymph % (Auto) 10.2 L, Dixon % (Auto) 8.7, Eos % (Auto) 1.5, Baso % (Auto) 0.2, Absolute Neuts (auto) 11.0 H, Absolute Lymphs (auto) 1.44, Nucleated RBC % 0 08/24/19 05:33: Sodium 140, Potassium 3.3 L, Chloride 107, Carbon Dioxide 29.0, Anion Gap 4 L, BUN 33 H, Creatinine 1.24 H, Estim Creat Clear Calc 41.09, Est GFR (MDRD) Af Amer 54 L, Est GFR (MDRD) Non-Af 45 L, BUN/Creatinine Ratio 26.6 H , Glucose 72 L, Calcium 8.8 Current Medications Acetaminophen (Tylenol) 650 mg PO Q6H PRN PRN PRN Reason: Pain Score 1-3/Temp > 100.7 F Last Admin: 08/24/19 08:34 Dose: 650 mg Documented by: Albuterol Sulfate (Ventolin Aerosols) 2.5 mg INHALATION Q2H PRN PRN PRN Reason: SOB/Wheezing Amiodarone HCl (Cordarone) 200 mg PO BID [facility] Stop: 09/05/19 22:01 Last Admin: 08/24/19 08:35 Dose: 200 mg Documented by: Amiodarone HCl (Cordarone) 200 mg PO DAILY [facility] Amitriptyline HCl (Elavil) 50 mg PO QHS [facility] Last Admin: 08/23/19 21:41 Dose: 50 mg Documented by: Apixaban (Eliquis) 2.5 mg PO BID [facility] Last Admin: 08/24/19 08:37 Dose: 2.5 mg Documented by: Aspirin (Aspirin, Baby) 81 mg PO DAILY@0800 [facility] Last Admin: 08/24/19 08:34 Dose: 81 mg Documented by: Benzonatate (Tessalon Perle) 100 mg PO TID PRN PRN Reason: COUGH Brimonidine Tartrate (Alphagan P 0.15%) 1 drop EACH EYE BID [facility] Last Admin: 08/24/19 08:37 Dose: 1 drop Documented by: Carvedilol (Coreg) 6.25 mg PO BID [facility] Last Admin: 08/24/19 08:37 Dose: 6.25 mg Documented by: Citalopram Hydrobromide (Celexa) 20 mg PO DAILY [facility] Last Admin: 08/24/19 08:36 Dose: 20 mg Documented by: Fluticasone Propionate (Flonase Nasal [place]) 2 spray NASAL DAILY [facility] Last Admin: 08/24/19 08:38 Dose: 2 spray Documented by: Furosemide (Lasix) 40 mg PO DAILY [facility] Last Admin: 08/24/19 08:38 Dose: 40 mg Documented by: Gabapentin (Neurontin) 100 mg PO QHS [facility] Last Admin: 08/23/19 21:42 Dose: 100 mg Documented by: Glucagon () 1 mg IM .X1 PRN PRN Reason: Hypoglycemia Dextrose (Dextrose 10%-Water) 250 mls @ 999 mls/hr IV .Q16M PRN; Protocol PRN Reason: HYPOGLYCEMIA Sodium Chloride () 250 mls @ 15 mls/hr IV .[id number] PRN PRN Reason: Saline Flush Last Infusion: 08/20/19 08:33 Dose: Infused Documented by: Sodium Chloride () 250 mls @ 15 mls/hr IV .[id number] PRN PRN Reason: Additional IVPB Infusion Ampicillin Sodium 2 gm/ Sodium (Chloride) 100 mls @ 200 mls/hr IV Q8 [facility] Last Infusion: 08/24/19 06:05 Dose: Infused Documented by: Levothyroxine Sodium (Synthroid) 88 mcg PO QHS [facility] Last Admin: 08/23/19 21:43 Dose: 88 mcg Documented by: Magnesium Oxide (Mag-Ox 400) 400 mg PO QODAY [facility] Last Admin: 08/23/19 08:58 Dose: 400 mg Documented by: [facility]) [facility] Last Admin: 08/24/19 08:37 Dose: 1 tablet Documented by: Multivitamins (Allbee W/C Caplet, Thera B Comp/C) 1 capsule PO DAILY [facility] Last Admin: 08/24/19 08:34 Dose: 1 capsule Documented by: Ondansetron HCl (Zofran) 4 mg IV Q8H PRN PRN PRN Reason: NAUSEA/VOMITING Polyethylene Glycol (Miralax) 17 gm PO QHS [facility] Last Admin: 08/23/19 21:42 Dose: Not Given Documented by: Pravastatin Sodium (Pravachol) 40 mg PO QHS [facility] Last Admin: 08/23/19 21:42 Dose: 40 mg Documented by: Sodium Chloride () 10 - 40 ml IV UD PRN PRN Reason: SALINE FLUSH Last Admin: 08/23/19 08:59 Dose: 10 ml Documented by: Medical Necessity - Tobacco Use Smoking Status: Never smoker Route of nutrition/ use of supplements: [] Nutritional Intake: [] IV Site: [] Andrews Catheter: [] - Assessment/Plan Antibiotics: [] Assessment/Plan: [] Active and Suspected Problems (Last Reviewed 08/19/19 @ 17:37 by Kelvin Frazier DO) Bacteremia (Acute) Hypotension (Acute) Leukocytosis (Acute) Strep mitis bioprosthetic mitral valve endocarditis - Possible oral source with recent dental cleaning, but she reports compliance with abx prophylaxis. Strep less than 0.06 SUDARSHAN to PCN, R to ceftriaxone. Will avoid aminoglycoside due to risk of nephrotoxicity, particularly with her recovering SAY. Repeat bcx neg so far. Picc planned. Plan will be for 6 weeks of iv ampicillin, stop date 10/02/19. Weekly bmp and cbc while on iv abx. Typical recommendation with endocarditis would be for removal/replacement of cardiac devices, but risks may be higher than the benefits for her given her comorbidities. diarrhea - will check cdiff Will follow
--- NOTE | 2019-08-24 10:29 | PCM.TXEXTCAR ---
- Diet 08/19/19 17:41 Diet: Cardiac/Low Cholesterol Food consistency:: Regular Liquid Consistency:: Regular/Thin Is pt able to select menu?: Yes - Routine Orders/Code Status Code Status: Full Code - Suggestions for Active Care Change Position every (hours): 3 Hours to sit in a chair: 2 Times a day to sit in chair: 3 - Therapies Weight Bearing: Weight bearing as tolerated Physical Therapy: Eval and Treat Occupational Therapy: Eval and Treat - Allergies/Procedures Done in Hospital Allergies/Adverse Reactions: Allergies levofloxacin [Levofloxacin] Allergy (Verified 08/19/19 11:24) Hives warfarin [From Coumadin] Allergy (Verified 08/19/19 11:24) Other torsemide [From Demadex] Adverse Reaction (Intermediate, Verified 08/19/19 11:24) Rash - Type of Care/Length of Stay Estimated LOS: Convalescent Care Less Than 30 days Type of Care Needed: Skilled Rehab Potential: Fair Prognosis: Fair - Additional Orders/Day of Discharge H&P will serve as current which was dated: 08/19/19 Day of Discharge: 08/24/19 - Dietary and Speech Recommendations Dietitian Recommendations/Changes: Rec continue Cardiac/Low Cholesterol diet. - Follow Up Care Primary Care Physician: Minerva Martin MD [Primary Care Provider] - Please follow up with your Primary Care Physician in: 1 WEEK. Please Follow Up With: Glenna Anderson NP-C When: 2 WEEKS. Please Follow Up With: Sushil lBair NP-C When: 2-3 weeks. Please Follow Up With: Alejandro Rodriguez MD When: 3-4 weeks.
--- NOTE | 2019-08-24 11:47 | NURSING ---
Report called to Robert in TCU
--- NOTE | 2019-08-24 14:09 | CASEMGMT ---
Pt living will and health care POA are in coverted echart. Papers printed and placed on pt chart. TIFFANY Davis
--- NOTE | 2019-08-24 14:19 | PCM.PROGNOTE ---
Patient Problems: Active and Suspected Problems (Last Reviewed 08/19/19 @ 17:37 by Kelvin Frazier DO) Bacteremia (Acute) Hypotension (Acute) Leukocytosis (Acute) Subjective: Chief complaint: Follow-up after admission for hypertension, abnormal cardiac enzymes, bacteremia and A. fib with RVR. 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 Patient seen and examined. No acute events overnight. Today, she denies any complaints. She has been afebrile. She has been ambulating without any symptoms. Her vital signs are stable. - Physical Exam Vitals/I&O's: Vital Signs Temp Pulse Resp BP Pulse Ox 98.3 F 85 16 127/77 H 95 08/24/19 08:32 08/24/19 11:04 08/24/19 08:32 08/24/19 08:32 08/24/19 08:32 Oxygen Flow Rate (L/min) 2 Oxygen Delivery Method Room Air Weight: 166 lb 14.239 oz Body Mass Index (BMI) 23.6 Finger Stick Blood Glucose 146 Intake and Output for Last 24 Hours 08/22/19 08/23/19 08/24/19 23:59 23:59 23:59 Intake Total 1050.2 / 1050.2 1660 / 1660 520 / 520 Output Total 900 / 900 500 / 500 300 / 300 Balance 150.2 / 150.2 1160 / 1160 220 / 220 General: Alert, Oriented x3, Cooperative, No apparent distress HEENT: Atraumatic, PERRLA, EOMI, Normocephalic Oral: Moist Mucosa, No Gingival or Mucosal Lesions/ Ulcerations Neck: Supple, No JVD, Negative Carotid Bruits Lungs: Clear to auscultation, Normal air movement, No rhonchi, No wheeze, No rales, Diminished Cardiovascular: Regular rate, Regular Rhythm, Normal S1, Normal S2, PMI Normal Abdomen: Bowel Sounds Present, Soft, Non Tender, Non-Distended, No Hepato-splenomegaly Extremities: No clubbing, No cyanosis, No edema Skin: No rashes, No breakdown Lymphatic: No Cervical, Supraclavicular, or Inguinal Adenopathy Neurological: Cranial nerves II-XII grossly intact, Neuro grossly intact Psych/Mental Status: Normal Affect, Appropriate, Alert and oriented to time, place, person, mood and affect Microbiology Past 72 Hours 08/19/19 13:00 Blood Culture (Wb) - Anticubital Left Blood Culture - Final Streptococcus mitis/ oralis 08/19/19 18:24 Blood Culture (Wb) - Right Forearm Blood Culture - Final Alpha Hemolytic Streptococcus Laboratory Results 08/24/19 05:33: WBC 14.1 H, RBC 4.24, Hgb 12.3, Hct 39.9, MCV 94.1, MCH 29.0, MCHC 30.8 L, RDW Std Deviation 58.4 H, RDW Coeff of Jackie 17.4 H, Plt Count 210, MPV 9.8, Immature Gran % (Auto) 1.300 H, Neut % (Auto) 78.1 H, Lymph % (Auto) 10.2 L, [place] % (Auto) 8.7, Eos % (Auto) 1.5, Baso % (Auto) 0.2, Absolute Neuts (auto) 11.0 H, Absolute Lymphs (auto) 1.44, Nucleated RBC % 0 08/24/19 05:33: Sodium 140, Potassium 3.3 L, Chloride 107, Carbon Dioxide 29.0, Anion Gap 4 L, BUN 33 H, Creatinine 1.24 H, Estim Creat Clear Calc 41.09, Est GFR (MDRD) Af Amer 54 L, Est GFR (MDRD) Non-Af 45 L, BUN/Creatinine Ratio 26.6 H, Glucose 72 L, Calcium 8.8 Microbiology 08/19/19 13:00 Blood Culture (Wb) - Anticubital Left Blood Culture - Final Streptococcus mitis/ oralis 08/19/19 18:24 Blood Culture (Wb) - Right Forearm Blood Culture - Final Alpha Hemolytic Streptococcus 08/19/19 13:15 Mucosa - Nose Influenza Types A,B Direct FA (SUDARSHAN) - Final Current Medications Acetaminophen (Tylenol) 650 mg PO Q6H PRN PRN PRN Reason: Pain Score 1-3/Temp > 100.7 F Last Admin: 08/24/19 08:34 Dose: 650 mg Documented by: Albuterol Sulfate (Ventolin Aerosols) 2.5 mg INHALATION Q2H PRN PRN PRN Reason: SOB/Wheezing Amiodarone HCl (Cordarone) 200 mg PO BID [place] Stop: 09/05/19 22:01 Last Admin: 08/24/19 08:35 Dose: 200 mg Documented by: Amiodarone HCl (Cordarone) 200 mg PO DAILY [facility] Amitriptyline HCl (Elavil) 50 mg PO QHS [facility] Last Admin: 08/23/19 21:41 Dose: 50 mg Documented by: Apixaban (Eliquis) 2.5 mg PO BID [facility] Last Admin: 08/24/19 08:37 Dose: 2.5 mg Documented by: Aspirin (Aspirin, Baby) 81 mg PO DAILY@0800 [facility] Last Admin: 08/24/19 08:34 Dose: 81 mg Documented by: Benzonatate (Tessalon Perle) 100 mg PO TID PRN PRN Reason: COUGH Brimonidine Tartrate (Alphagan P 0.15%) 1 drop EACH EYE BID [facility] Last Admin: 08/24/19 08:37 Dose: 1 drop Documented by: Carvedilol (Coreg) 6.25 mg PO BID [facility] Last Admin: 08/24/19 08:37 Dose: 6.25 mg Documented by: Citalopram Hydrobromide (Celexa) 20 mg PO DAILY [facility] Last Admin: 08/24/19 08:36 Dose: 20 mg Documented by: Fluticasone Propionate (Flonase Nasal [place]) 2 spray NASAL DAILY [facility] Last Admin: 08/24/19 08:38 Dose: 2 spray Documented by: Furosemide (Lasix) 40 mg PO DAILY [facility] Last Admin: 08/24/19 08:38 Dose: 40 mg Documented by: Gabapentin (Neurontin) 100 mg PO QHS [facility] Last Admin: 08/23/19 21:42 Dose: 100 mg Documented by: Glucagon () 1 mg IM .X1 PRN PRN Reason: Hypoglycemia Dextrose (Dextrose 10%-Water) 250 mls @ 999 mls/hr IV .Q16M PRN; Protocol PRN Reason: HYPOGLYCEMIA Sodium Chloride () 250 mls @ 15 mls/hr IV .[id number] PRN PRN Reason: Saline Flush Last Infusion: 08/20/19 08:33 Dose: Infused Documented by: Sodium Chloride () 250 mls @ 15 mls/hr IV .[id number] PRN PRN Reason: Additional IVPB Infusion Ampicillin Sodium 2 gm/ Sodium (Chloride) 100 mls @ 200 mls/hr IV Q8 [facility] Last Infusion: 08/24/19 06:05 Dose: Infused Documented by: Levothyroxine Sodium (Synthroid) 88 mcg PO QHS [facility] Last Admin: 08/23/19 21:43 Dose: 88 mcg Documented by: Magnesium Oxide (Mag-Ox 400) 400 mg PO QODAY [facility] Last Admin: 08/23/19 08:58 Dose: 400 mg Documented by: [facility]ivit[facility] ([facility]amin) [facility] Last Admin: 08/24/19 08:37 Dose: 1 tablet Documented by: Multivitamins (Allbee W/C Caplet, Thera B Comp/C) 1 capsule PO DAILY [facility] Last Admin: 08/24/19 08:34 Dose: 1 capsule Documented by: Ondansetron HCl (Zofran) 4 mg IV Q8H PRN PRN PRN Reason: NAUSEA/VOMITING Polyethylene Glycol (Miralax) 17 gm PO QHS [facility] Last Admin: 08/23/19 21:42 Dose: Not Given Documented by: Pravastatin Sodium (Pravachol) 40 mg PO QHS [facility] Last Admin: 08/23/19 21:42 Dose: 40 mg Documented by: Sodium Chloride () 10 - 40 ml IV UD PRN PRN Reason: SALINE FLUSH Last Admin: 08/23/19 08:59 Dose: 10 ml Documented by: Medical Necessity - Tobacco Use Smoking Status: Never smoker Assessment/Plan All Active Problems (Last Reviewed 08/19/19 @ 17:37 by Kelvin Frazier DO) Bacteremia (Acute) Hypotension (Acute) Leukocytosis (Acute) This is a 79 years old female patient presented to the emergency room because of weakness and reported confusion, found to have hypotension, lactic acidosis and minimally worsening kidney function in the setting of recent discharge from the hospital after admission for acute on chronic CHF. Later, she was found to have bacteremia and then found to have infective endocarditis. #1 hypotension: Attributed to overdiuresis due to Lasix in addition to history of adrenal insufficiency. Blood pressure has been stable, started back on Lasix. Her vital signs are stable, afebrile, pulse ox is maintained on room air. EKG revealed normal sinus rhythm, first-degree AV block, inverted T waves in V4, V5 and V6 and those are chronic, no acute changes. Awaiting insurance approval for placement to care home facility. #2 lactic acidosis/leukocytosis: Resolved. On admission, lactic acid is 2.1, came down to 1.1 with gentle IV fluids for hydration. Initially, there was no evidence of infection. Later, she was found to have bacteremia which is attributed to infective endocarditis. Patient has been on IV ampicillin today. She has been afebrile, vital signs are stable. Chest x-ray without acute findings. CT scan chest showed no infiltrate or consolidation. Urinalysis was clean. Plan as above. 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 Yesterday, she had transthoracic echocardiogram that revealed severely dilated LV, ejection fraction 15%, small mobile mass lesion on the right atrium consistent with small thrombus, mitral valve apparatus mobile mass lesion consistent with vegetation. Blood culture revealed Staphylococcus mitis which is resistant to Rocephin and the SWAT she was started on IV ampicillin. Infectious disease consulted, recommended IV ampicillin for 6 weeks. #4 Streptococcal bacteremia: Source is probably the infective endocarditis. She is on IV ampicillin as above. Cultures reviewed. Blood culture revealed alphahemolytic Streptococcus/Streptococcus mitis. Chest x-ray, CT chest was unremarkable and urinalysis showed no evidence of UTI. Plan as above. #5 history of adrenal insufficiency: IV hydrocortisone discontinued. Now, she is off steroids. Blood pressure stabilized. Patient was on steroids and according to her PCP, she was taking of Cortef 4 months ago by her financial services assistant. Recommend to follow-up with her financial services assistant as outpatient. #6 recent acute on chronic combined systolic and diastolic CHF: Stable at this time. She is back on Lasix twice daily, on Coreg. Plan to discharge to SNF on Lasix 40 mg p.o. twice daily. #7 stage III chronic kidney disease: Without significant worsening. Baseline creatinine has been around 1.3 to 1.8 mg/dL. Admission creatinine was 1.92, was slightly above her baseline. Today's creatinine is 1.24, improved. Plan as above. #8 paroxysmal atrial fibrillation with RVR: Rate is controlled. She is on p.o. amiodarone and Coreg for rate control, on Eliquis for anticoagulation. #9 status post mitral valve replacement with bioprosthetic valve: With vegetation on the bioprosthetic mitral valve consistent with infective endocarditis. She is on IV ampicillin as above. #10 history of ventricular arrhythmia/cardiomyopathy: Status post ICD. Heart rate stable, blood pressure stabilized, no evidence of cardiac arrhythmias on EKG. #11 history of DVT: Status post IVC, on Eliquis. #12 hypothyroidism: Stable, continue levothyroxine. #13 anxiety/depression: Continue Celexa. #14 DVT prophylaxis: Continue Eliquis. This note was generated with [employer] dictation software. It may contain incorrect words, spelling, and punctuation that were not noted in checking the note before signing. Code Visit Inpatient E&M: 80430 Subs Hosp L2
--- NOTE | 2019-08-24 16:23 | CASEMGMT ---
Social Work Received call from [facility] that insurance authorization has been granted. Pt ready for d/c. SW met with pt and spouse and informed and they are agreeable to d/c to TCU today. Nursing made aware and orders faxed to [facility]. TIFFANY Davis
--- NOTE | 2019-08-24 16:26 | NURSING ---
Called report to Natali in TCU
--- NOTE | 2019-08-24 20:07 | PCM.DC.SUM ---
Discharge Date and Diagnosis Date of Admission: 08/19/19 Date of Discharge: 08/24/19 - Primary Discharge Diagnosis #1 Streptococcus mitis/oralis/alphahemolytic Streptococcus infective endocarditis. #2 streptococcal bacteremia. #3 lactic acidosis. #4 hypotension, attributed to overdiuresis, no infection identified on admission to qualify for septic shock or severe sepsis. #5 history of adrenal insufficiency. #6 recent acute on chronic combined systolic and diastolic CHF. - Secondary Discharge Diagnosis Chronic Problems (Last Reviewed 08/19/19 @ 17:37 by Kelvin Frazier DO) 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) Renal insufficiency (Chronic) Nonhealing ulcer of right lower extremity with fat layer exposed (Chronic) Anxiety and depression (Chronic) HTN (hypertension) (Chronic) Cardiac dysrhythmia (Chronic) alf current use of 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 (Chronic) DVT (deep venous thrombosis) (Chronic) Paroxysmal atrial fibrillation (Chronic) Chronic systolic (congestive) heart failure (Chronic) Menopausal osteoporosis (Chronic) Prediabetes (Chronic) Stroke (Chronic) Nonrheumatic mitral (valve) prolapse (Chronic) Hyperlipemia (Chronic) 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 Electronically Signed: Ed Fink, at 13:32 EST , Service support , Chest X-Ray 08/19/19 12:45 IMPRESSION: No significant interval change compared to prior. Cardiomegaly and mild pulmonary vascular congestion Electronically Signed: Juan Carlos Larson, at 14:06 EST Tel , Service support , Abdomen/Pelvis CT 08/19/19 14:34 IMPRESSION: Stable scarring at the lung bases. Stable left renal cyst. Scattered sigmoid diverticula. No acute pneumonia is seen. Electronically Signed: Ed Fink, at 15:28 EST , Service support , Chest CT 08/19/19 14:34 IMPRESSION: Findings suggest mild scarring at the lung bases. This is unchanged. No acute abnormality is seen. Electronically Signed: Ed Fink, at 15:36 EST , Service support , Dr. Rodriguez, infectious disease. Dr. Huang, cardiology. Operations: - Procedures: 2-D Echocardiogram, EKG Summary of Care Provided: Patient seen and examined on the day of discharge and appeared to be stable to be discharged to [facility]. She denied any complaints. She remained afebrile, blood pressure stabilized and pulse ox remained normal on room air. The patient is a 79 year old F patient with complicated past medical history presented to the emergency room because of weakness and confusion. Patient was discharged from the hospital 2 days before this admission and she was admitted for acute on chronic combined CHF. She was discharged on high dose of Lasix of 80 mg p.o. twice daily. Upon arrival to ED, patient was hypotensive and she was found to have elevated lactic acid. Her kidney function was slightly above her baseline. This hypotension attributed to overdiuresis with high dose of Lasix on a patient does have chronic borderline blood pressure. Lasix was held and she patient was given small boluses of IV fluids. Her blood pressure improved and lactic acid returned back to normal. She did have leukocytosis on admission but there was no fever. She had chest x-ray that showed no acute infiltrate or consolidation. CT scan chest also done and showed no evidence of infiltrate or consolidation. Urinalysis showed no evidence of acute cystitis. Blood culture done and revealed Streptococcus mitis and alpha hemolytic Streptococcus. Patient was started on IV Zosyn. Initially, there was no evidence of infection and there was no obvious source of this bacteremia. Cardiology consulted and patient had 2D echocardiogram done and revealed bioprosthetic mitral valve mobile mass lesions likely because of vegetations. She was diagnosed infective endocarditis. Infectious disease and after discussion with cardiology and infectious disease, we decided that patient is at very high risk patient to go for open heart surgery for this infective endocarditis because she has bioprosthetic mitral valve. Her risks for such type of surgery would outweigh the benefits and we decided to continue IV antibiotic therapy. Cultures reviewed and patient was started on IV Rocephin which did not to be resistant by the bacteria in the blood culture. Infectious disease recommended to start patient on IV ampicillin. Patient started on IV ampicillin. Her blood pressure remained stable as well as heart rate and oxygenation, she remained afebrile. Her kidney function improved. Patient discharged to [facility] in a stable medical condition, discharged on IV ampicillin for 6 weeks of treatment, discharged on Lasix 40 mg p.o. twice daily, discharged on amiodarone, continued on her previous other home medications without any changes, plan to follow-up with cardiology in 2 to 3 weeks, follow-up with pulmonology in 2 weeks, follow-up with infectious disease in 3 to 4 weeks and recommended follow-up with PCP in 1 week. - Physical Exam Vitals/I&O's: Vital Signs Temp Pulse Resp BP Pulse Ox 97.4 F L 73 16 114/69 93 08/24/19 16:07 08/24/19 16:07 08/24/19 16:07 08/24/19 16:07 08/24/19 16:07 Oxygen Flow Rate (L/min) 2 Oxygen Delivery Method Room Air Weight: 166 lb 14.239 oz Body Mass Index (BMI) 23.6 Finger Stick Blood Glucose 146 Intake and Output for Last 24 Hours 08/22/19 08/23/19 08/24/19 23:59 23:59 23:59 Intake Total 1050.2 / 1050.2 1660 / 1660 620 / 620 Output Total 900 / 900 500 / 500 300 / 300 Balance 150.2 / 150.2 1160 / 1160 320 / 320 General: Alert, Oriented x3, Cooperative, No apparent distress HEENT: Atraumatic, PERRLA, EOMI, Normocephalic Oral: Moist Mucosa, No Gingival or Mucosal Lesions/ Ulcerations Neck: Supple, No JVD, Negative Carotid Bruits, Trachea Midline, Thyroid Normal Size and Texture Lungs: Clear to auscultation, Normal air movement, No rhonchi, No wheeze, No rales, Diminished Cardiovascular: Regular rate, Regular Rhythm, Normal S1, Normal S2, PMI Normal Abdomen: Bowel Sounds Present, Soft, Non Tender, Non-Distended, No Hepato-splenomegaly Extremities: No clubbing, No cyanosis, No edema Skin: No rashes, No breakdown Lymphatic: No Cervical, Supraclavicular, or Inguinal Adenopathy Neurological: Cranial nerves II-XII grossly intact, Neuro grossly intact Psych/Mental Status: Normal Affect, Appropriate Microbiology Past 72 Hours 08/24/19 16:40 Stool C. difficile DNA Amplification - Final 08/19/19 13:00 Blood Culture (Wb) - Anticubital Left Blood Culture - Final Streptococcus mitis/ oralis 08/19/19 18:24 Blood Culture (Wb) - Right Forearm Blood Culture - Final Alpha Hemolytic Streptococcus Laboratory Results 08/24/19 05:33: WBC 14.1 H, RBC 4.24, Hgb 12.3, Hct 39.9, MCV 94.1, MCH 29.0, MCHC 30.8 L, RDW Std Deviation 58.4 H, RDW Coeff of Jackie 17.4 H, Plt Count 210, MPV 9.8, Immature Gran % (Auto) 1.300 H, Neut % (Auto) 78.1 H, Lymph % (Auto) 10.2 L, [place] % (Auto) 8.7, Eos % (Auto) 1.5, Baso % (Auto) 0.2, Absolute Neuts (auto) 11.0 H, Absolute Lymphs (auto) 1.44, Nucleated RBC % 0 08/24/19 05:33: Sodium 140, Potassium 3.3 L, Chloride 107, Carbon Dioxide 29.0, Anion Gap 4 L, BUN 33 H, Creatinine 1.24 H, Estim Creat Clear Calc 41.09, Est GFR (MDRD) Af Amer 54 L, Est GFR (MDRD) Non-Af 45 L, BUN/Creatinine Ratio 26.6 H, Glucose 72 L, Calcium 8.8 Home Medications: Medications to take at Discharge Multivitamins,Therapeutic [Multivitamin] 1 tab PO DAILY 11/16/15 albuterol sulfate 90 mcg/actuation aerosol inhaler 2 puff INHALATION BID PRN 09/10/17 pravastatin 40 mg tablet 40 mg PO QHS tab 09/11/17 fluticasone propionate 50 mcg/actuation nasal spray,suspension 2 spray INTRANASAL DAILY 01/20/18 Levothyroxine [Synthroid] 88 mcg PO QHS 06/22/18 gabapentin 100 mg capsule 100 mg PO QHS cap 07/15/18 Aspirin [Aspirin, Baby] 81 mg PO DAILY@0800 09/07/18 amitriptyline 50 mg tablet 50 mg PO QHS 10/15/18 apixaban 2.5 mg tablet 2.5 mg PO BID 10/15/18 Acetaminophen [Tylenol] 1,000 mg PO Q4H PRN PRN 11/09/18 Budesonide Aerosol [Pulmicort Respules] 0.5 mg INHALATION BID PRN 11/09/18 benzonatate 100 mg capsule 100 mg PO TID PRN 05/04/19 magnesium 250 mg tablet 250 mg PO QODAY 07/22/19 Citalopram [Celexa] 20 mg PO DAILY 08/13/19 Vitamin B Complex [B Complex] 1 tab PO DAILY 08/13/19 Lubiprostone [Amitiza] 8 mcg PO QHS 08/16/19 Polyethylene Glycol 3350 [Miralax] 17 gm PO QHS 08/16/19 Amiodarone HCl [Cordarone] 200 mg PO BID 08/24/19 Ampicillin [Omnipen-N] 2 gm IV Q8 08/24/19 Brimonidine 0.15% [Alphagan P 0.15%] 1 drp EACH EYE BID 08/24/19 Carvedilol [Coreg (Beta Rolando)] 6.25 mg PO BID 08/24/19 Furosemide [Lasix] 40 mg PO BID 08/24/19 Potassium Chloride [K-Tab ER] 20 meq PO BID 08/24/19 Primary Care Physician: Minerva Martin MD [Primary Care Provider] - Please follow up with your Primary Care Physician in: 1 WEEK. Please Follow Up With: Minerva Martin MD Please Follow Up With: Glenna Anderson NP-C When: 2 WEEKS. Please Follow Up With: Roof,Sushil H, [employer]-C When: 2-3 weeks. Please Follow Up With: Alejandro Rodriguez MD When: 3-4 weeks. Disposition: Retirement facility Minutes spent on discharge:: 35 Patient Condition:: Stable Medical Necessity - Tobacco Use Smoking Status: Never smoker Meaningful Use Info Meaningful Use Diagnoses (Choose all that apply): None applicable Code Visit Inpatient E&M: 42175 Disch Hosp
== END 2019-08-24 18:01 | DRG 314 ==
LOC: ED 12:45 → PCU 17:53
PROVIDERS: Family Medicine; Emergency Provider Emergency Medicine; Family Provider Internal Medicine; PCP Internal Medicine; Visit Provider Hospitalist
DX: T82.6XXA Infection and inflammatory reaction due to cardiac valve prosthesis, initial encounter (principal); I33.0 Acute and subacute infective endocarditis; N17.9 Acute kidney failure, unspecified; E87.2 Acidosis; I42.9 Cardiomyopathy, unspecified; I13.0 Hypertensive heart and chronic kidney disease with heart failure and stage 1 through stage 4 chronic kidney disease, or unspecified chronic kidney disease; R78.81 Bacteremia; I50.42 Chronic combined systolic (congestive) and diastolic (congestive) heart failure; Z16.19 Resistance to other specified beta lactam antibiotics; I95.9 Hypotension, unspecified; B95.4 Other streptococcus as the cause of diseases classified elsewhere; E03.9 Hypothyroidism, unspecified; E78.5 Hyperlipidemia, unspecified; I25.10 Atherosclerotic heart disease of native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 without angina pectoris; Z95.3 Presence of xenogenic heart valve; I48.0 Paroxysmal atrial fibrillation; N18.3 Chronic kidney disease, stage 3 (moderate); Z95.810 Presence of automatic (implantable) cardiac defibrillator; Z79.01 Long term (current) use of 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s; Z86.718 Personal history of other venous thrombosis and embolism; Y83.1 Surgical operation with implant of artificial internal device as the cause of abnormal reaction of the patient, or of later complication, without mention of misadventure at the time of the procedure; F41.9 Anxiety disorder, unspecified; F32.9 Major depressive disorder, single episode, unspecified; I27.20 Pulmonary hypertension, unspecified
CPT/HCPCS: 36415; 70450; 71045; 71250; 74176; 80048; 80053; 81001; 83605; 83690; 83735; 83880; 84484; 85025; 85610; 85730; 87040; 87077; 87186; 87493; 87641; 87804; 93005; 93306; 94640; 97110; 97162; 97166; 97530; 97535; 99285; 99406; J7030; J7040; J7050; A4216; J0696

== ENCOUNTER 2019-08-24 18:11 | Inpatient (IN) | payer MEDICARE, SELFPAY ==
[2019-08-19 17:29] VITALS: BMI 23.6
[2019-08-24 18:14] VITALS: BP 122/74; PULSE 94; RESP 20; TEMP 36.6; O2SAT 90
--- NOTE | 2019-08-24 20:49 | PCM.HP.STD ---
Problem List (1) Debility Status: Acute (2) Encephalopathy Status: Acute (3) Severe sepsis Status: Acute (4) Endocarditis Status: Acute (5) Glaucoma Status: Chronic (6) Neuropathic pain Status: Chronic (7) Fecal impaction Status: Chronic (8) Atrial fibrillation Status: Chronic (9) Coronary artery disease Status: Chronic (10) Adrenal insufficiency Status: Chronic (11) Acute kidney injury Status: Acute (12) Chronic systolic (congestive) heart failure Status: Chronic (13) Hyperlipemia Status: Chronic Qualifiers: (14) Restrictive lung disease Status: Chronic (15) Hypothyroidism Status: Chronic Qualifiers: (16) Pulmonary HTN Status: Chronic History of Present Illness Date of Admission: 08/24/19 Chief Complaint: Here for rehabilitation, strengthening, prior to discharge home with . The patient is a 79 year old Female with below past medical history presented to [facility] Department 08/19/2019 with chest pain. 08/19/2019 CT brain chronic involutional changes of brain. 08/19/2019 Chest X-ray cardiomegaly, mild pulmonary vascular congestion. 08/19/2019 EKG sinus rhythm with sinus arrhythmia with 1st degree AV block, left sided non-specific interventricular conduction delay. 08/19/2019 CT chest mild scarring at bases. 08/19/2019 CT abdomen/pelvis stable scarring at bases, stable left renal cyst, scattered sigmoid diverticula. Increased work of breathing, confusion, cyanosis. Discharged from hospital 2 days prior after 5 day stay for congestive heart failure. . Nauseous, lips/fingers turning blue. Zofran 8MG given en route to hospital. 89% RA requiring supplemental oxygen. Thought dehydrated, given 250cc fluid bolus for hypotension. Blood cultures sent. Troponin 0.161. 08/19/2019 Admit to Hospital. Zosyn IV for severe sepsis, source unknown. Influenza NEGATIVE. IV Fluids, hold Lasix for hypotension, dehydration, acute kidney injury. 08/20/2019 Dr. Huang recommended holding diuretics. Gentle IV Fluids. Blood cultures positive for gram positive cocci in clusters in 1 bottle. Echo severely dilated left ventricle. Severe global left ventricular systolic dysfunction. EF 15%. Mild global right ventricular systolic dysfunction. Right ventricular systolic pressure 68mm HG. Vegetation noted. 08/23/2019 Dr. Rodriguez Strep Mitis bioprosthetic mitral valve endocarditis. Recent dental cleaning, but patient compliant with antibiotic prophylaxis. 6 weeks IV Ampicillin recommended. 08/24/2019 Lasix restarted. UA negative for urinary tract infection. Off Cortef for adrenal insufficiency per Dr. 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 08/24/2019 Admit to TCU with debility, here for rehabilitation, strengthening, prior to discharge home with . 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) Renal insufficiency (Chronic) Nonhealing ulcer of right lower extremity with fat layer exposed (Chronic) Anxiety and depression (Chronic) HTN (hypertension) (Chronic) Cardiac dysrhythmia (Chronic) half-way current use of 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 (Chronic) DVT (deep venous thrombosis) (Chronic) Paroxysmal atrial fibrillation (Chronic) Chronic systolic (congestive) heart failure (Chronic) Menopausal osteoporosis (Chronic) Prediabetes (Chronic) Stroke (Chronic) Nonrheumatic mitral (valve) prolapse (Chronic) Hyperlipemia (Chronic) Atherosclerotic heart disease of [place] coronary artery with angina pectoris (Chronic) 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) Restrictive lung disease (Chronic) URMILA (obstructive sleep apnea) (Chronic) Hypothyroidism (Chronic) 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) mod-severe stenosis by SOL 08/11/15 s/p MVR porcine Pulmonary HTN (Chronic) Cardiomyopathy (Chronic) Adrenal cortex insufficiency (Chronic) appears secondary baseline cortisol low ACTH stim test normal Medical History: Medical History (Last Reviewed 08/19/19 @ 17:37 by Kelvin Frazier DO) 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) Z95.810 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) Z79.01 DVT (deep venous thrombosis) (Chronic) I82.409 Paroxysmal atrial fibrillation (Chronic) I48.0 Chronic systolic (congestive) heart failure (Chronic) I50.22 Menopausal osteoporosis (Chronic) M81.0 Prediabetes (Chronic) R73.03 Stroke (Chronic) I63.9 Nonrheumatic mitral (valve) prolapse (Chronic) I34.1 Hyperlipemia (Chronic) E78.5 Atherosclerotic heart disease of [place] coronary artery with angina pectoris (Chronic) I25.119 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) M19.011 Spondylosis of cervical joint (Chronic) M47.812 Restrictive lung disease (Chronic) J98.4 URMILA (obstructive sleep apnea) (Chronic) G47.33 Hypothyroidism (Chronic) E03.9 Pulmonary HTN (Chronic) I27.2 Cardiomyopathy (Chronic) I42.9 Adrenal cortex insufficiency (Chronic) E27.40 appears secondary baseline cortisol low ACTH stim test normal Arrhythmia, ventricular (Inactive) I49.9 CAD (coronary artery disease) (Inactive) I25.10 Cardiac dysrhythmia, unspecified (Inactive) I49.9 Allergies levofloxacin [Levofloxacin] Allergy (Verified 08/19/19 11:24) Hives warfarin [From Coumadin] Allergy (Verified 08/19/19 11:24) Other torsemide [From Demadex] Adverse Reaction (Intermediate, Verified 08/19/19 11:24) Rash Home Medications: Ambulatory Orders Medication Instructions Recorded Multivitamins,Therapeutic 1 tab PO DAILY 11/16/15 [Multivitamin] albuterol sulfate 90 mcg/actuation 2 puff INHALATION BID PRN 09/10/17 aerosol inhaler pravastatin 40 mg tablet 40 mg PO QHS tab 09/11/17 fluticasone propionate 50 2 spray INTRANASAL DAILY 01/20/18 mcg/actuation nasal spray,suspension Levothyroxine [Synthroid] 88 mcg PO QHS 06/22/18 gabapentin 100 mg capsule 100 mg PO QHS cap 07/15/18 Aspirin [Aspirin, Baby] 81 mg PO DAILY@0800 09/07/18 amitriptyline 50 mg tablet 50 mg PO QHS 10/15/18 apixaban 2.5 mg tablet 2.5 mg PO BID 10/15/18 Acetaminophen [Tylenol] 1,000 mg PO Q4H PRN PRN 11/09/18 Budesonide Aerosol [Pulmicort 0.5 mg INHALATION BID PRN 11/09/18 Respules] benzonatate 100 mg capsule 100 mg PO TID PRN 05/04/19 magnesium 250 mg tablet 250 mg PO QODAY 07/22/19 Citalopram [Celexa] 20 mg PO DAILY 08/13/19 Vitamin B Complex [B Complex] 1 tab PO DAILY 08/13/19 Lubiprostone [Amitiza] 8 mcg PO QHS 08/16/19 Polyethylene Glycol 3350 [Miralax] 17 gm PO QHS 08/16/19 Amiodarone HCl [Cordarone] 200 mg PO BID 08/24/19 Ampicillin [Omnipen-N] 2 gm IV Q8 08/24/19 Brimonidine 0.15% [Alphagan P 1 drp EACH EYE BID 08/24/19 0.15%] Carvedilol [Coreg (Beta Rolando)] 6.25 mg PO BID 08/24/19 Furosemide [Lasix] 40 mg PO BID 08/24/19 Potassium Chloride [K-Tab ER] 20 meq PO BID 08/24/19 Surgical History: Surgical History (Last Reviewed 08/19/19 @ 17:37 by Kelvin Frazier DO) 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, Depression SMASH FIXER History: No pertinent SMASH FIXER history Lives: Spouse/ Significant Other Smoking Status: Never smoker Tobacco Use: Non-smoker Alcohol: None Drugs: None - *Family History Paternal Family History: Family History (Last Reviewed 08/19/19 @ 17:37 by Kelvin Frazier DO) Father CVA (cerebral vascular accident) Mother Cancer Sister Cancer Diabetes History Items: Stroke Sibling Family History: Family History (Last Reviewed 08/19/19 @ 17:37 by Kelvin Frazier DO) Father CVA (cerebral vascular accident) Mother Cancer Sister Cancer Diabetes History Items: Cancer, Diabetes Maternal Family History: Family History (Last Reviewed 08/19/19 @ 17:37 by Kelvin Frazier DO) Father CVA (cerebral vascular accident) Mother Cancer Sister Cancer Diabetes History Items: Cancer Review of Systems Constitutional: Reports: Malaise, Weakness. Denies: Chills, Fever, Weight Change HEENT: Denies: Head Aches, Sinus Congestion, Sinus Drainage Cardiovascular: Denies: Chest Pain, Palpitations Respiratory: Denies: Cough, Shortness of breath at rest, Sputum production Gastrointestinal: Denies: Abdominal Pain, Nausea, Vomiting Genitourinary: Denies: Dysuria Musculoskeletal: Denies: Joint Pain, Joint Tenderness Skin: Denies: Rash, Wounds Neurological: Denies: Numbness, Tingling, Focal weakness Psychiatric: Denies: Anxiety, Depression, Homicidal Ideations, Suicidal Ideations Hematologic/ Lymphatic: Denies: Easy Bruising, Easy Bleeding VTE Information - Inpt Only VTE Present on Admission: No VTE Mechan Device Prophylaxis: Knee High DANIA Hose VTE Pharm Prophylaxis ordered?: No Reason prophylaxis not ordered:: Treatment Not Indicated Patient Problems: Active and Suspected Problems (Last Reviewed 08/19/19 @ 17:37 by Kelvin Frazier DO) Debility (Acute) Encephalopathy (Acute) Severe sepsis (Acute) Endocarditis (Acute) Acute kidney injury (Acute) - Physical Exam Vitals/I&O's: Vital Signs Temp Pulse Resp BP Pulse Ox 97.9 F 94 20 H 122/74 H 90 08/24/19 18:14 08/24/19 18:14 08/24/19 18:14 08/24/19 18:14 08/24/19 18:14 Oxygen Delivery Method Room Air Body Mass Index (BMI) 23.6 Finger Stick Blood Glucose 146 General: Alert, Oriented x3, Cooperative HEENT: Atraumatic, PERRLA, EOMI, Normocephalic Neck: Supple, No JVD, Negative Carotid Bruits Lungs: Clear to auscultation, Normal air movement Cardiovascular: Regular rate, No murmurs Abdomen: Bowel Sounds Present, Soft, Non Tender Extremities: No edema, Capillary Refill Less than 3 Seconds Skin: No rashes, No breakdown Musculoskeletal: No Tenderness to Palpation of Joints or Extremities Neurological: Cranial nerves II-XII grossly intact Psych/Mental Status: Normal Affect, Appropriate Current Medications Acetaminophen (Tylenol) 1,000 mg PO Q4H PRN PRN PRN Reason: Pain Score 1-10/10 Albuterol Sulfate (Ventolin Hfa (Sp)) 2 puff INHALATION BID PRN PRN Reason: SOB &/OR WHEEZING Amiodarone HCl (Cordarone) 200 mg PO DAILY [place] Stop: 09/07/19 06:01 Amitriptyline HCl (Elavil) 50 mg PO QHS [facility] Ampicillin Sodium (Omnipen-N) 2 gm IV Q8 [facility] Apixaban (Eliquis) 2.5 mg PO BID [facility] Aspirin (Aspirin, Baby) 81 mg PO DAILY@0800 [facility] Benzonatate (Tessalon Perle) 100 mg PO TID PRN PRN Reason: COUGH Brimonidine Tartrate (Alphagan P 0.15%) 1 drop EACH EYE BID [facility] Budesonide (Pulmicort Aerosol) 0.5 mg INHALATION BID PRN PRN Reason: WHEEZING OR COUGH Carvedilol (Coreg) 6.25 mg PO BID [facility] Citalopram Hydrobromide (Celexa) 20 mg PO DAILY [facility] Fluticasone Propionate (Flonase Nasal [place]) 2 spray NASAL DAILY [facility] Furosemide (Lasix) 40 mg PO BID [facility] Gabapentin (Neurontin) 100 mg PO QHS [facility] Sodium Chloride () 250 mls @ 15 mls/hr IV .[id number] PRN PRN Reason: Saline Flush Levothyroxine Sodium (Synthroid) 88 mcg PO QHS [facility] Multivitamins (Allbee W/C Caplet, Thera B Comp/C) 1 capsule PO DAILY@0800 [facility] Multivitamins (Multivitamin) 1 tablet PO DAILY@1200 [facility] Non-Formulary Medication (Magnesium) 250 mg PO QODAY [facility] Non-Formulary Medication (Lubiprostone) 8 mcg PO QHS [facility] Polyethylene Glycol (Miralax) 17 gm PO QHS [facility] Potassium Chloride (K-Dur) 20 meq PO BIDCM [facility] Pravastatin Sodium (Pravachol) 40 mg PO QHS [facility] Sodium Chloride () 10 - 40 ml IV UD PRN PRN Reason: SALINE FLUSH Tuberculin PPD (Tubersol, Aplisol, Ppd) 5 tu ID X1 ONE Stop: 08/25/19 10:01 Tuberculin PPD (Tubersol, Aplisol, Ppd) 5 tu ID [id number] ONE Stop: 09/01/19 10:01 Assessment/Plan All Active Problems (Last Reviewed 08/19/19 @ 17:37 by Kelvin Frazier DO) Bacteremia (Acute) Debility (Acute) Encephalopathy (Acute) Severe sepsis (Acute) Endocarditis (Acute) Acute kidney injury (Acute) Hypotension (Acute) Leukocytosis (Acute) 79 year old female with below past medical history hospitalized for severe sepsis secondary to strep mitis bioprosthetic mitral valve endocarditis, complicated by acute kidney injury, hypotension, dehydration, admitted to TCU with debility, here for rehabilitation, strengthening, intravenous antibiotics, prior to discharge home with . Debility - PT/OT. Pain - Tylenol 1000MG Q6H PRN pain (1-10). Bowel - Miralax 17GM QHS. Adult immunization - Administer Prevnar 13, Pneumovax 23, Fluzone as appropriate. DVT prophylaxis - Not necessary, already on Eliquis. Restrictive lung disease - Albuterol MDI 2 puffs BID PRN, Pulmicort 0.5MG BID PRN. Atrial fibrillation - Coreg 6.25MG BID, Amiodarone 200MG daily, Eliquis 2.5MG BID. Neuropathic pain - Elavil 50MG QHS, Gabapentin 100MG QHS. Endocarditis - Ampicillin 2GM IV Q8H, stop date per Dr. Rodriguez. Coronary artery disease - Coreg 6.25MG BID, Aspirin 81MG daily. Cough - Tessalon Perles 100MG TID PRN. Glaucoma - Brimonidine 1GTT OU BID. Depression - Citalopram 20MG daily. Allergic Rhinitis - Flonase nasal spray 2 sprays daily PRN. Chronic systolic congestive heart failure - Coreg 6.25MG twice daily, Lasix 40MG BID. Hypothyroidism - Levothyroxine 88MCG daily. Hypomagnesemia - Magnesium oxide 250MG every other day. Nutrition - MVI daily. Hypokalemia - K-Dur 20MEQ BID. Hyperlipidemia - Pravastatin 40MG QHS. Vitamin B deficiency - Vitamin B complex 1 capsule daily.
[2019-08-24] MEDS: Acetaminophen 500 MG Tablet 1000 MG PO (21:43)
[2019-08-24] MEDS: 0.9% Saline Lock 10 ML Syringe IV (21:47)
[2019-08-24] MEDS: Gabapentin 100 MG Capsule PO (21:56)
[2019-08-24] MEDS: Amitriptyline 25 MG Tablet 50 MG PO (21:56)
[2019-08-24] MEDS: Pravastatin 40 MG Tablet PO (21:56)
[2019-08-24] MEDS: Levothyroxine 88 MCG Tablet PO (21:56)
[2019-08-24 22:40] VITALS: BMI 25.5
[2019-08-24 22:47] VITALS: BMI 25.6
[2019-08-25] MEDS: Menthol/Lanolin/Calamine/Znox 113 GM Tube 1 APPLIC TOPICAL ×2 (05:48→21:29)
[2019-08-25] MEDS: Carvedilol 6.25 MG Tablet PO ×2 (05:48→17:18)
[2019-08-25] MEDS: Citalopram 20 MG Tablet PO (05:48)
[2019-08-25] MEDS: Furosemide 40 MG Tablet PO ×2 (05:48→17:18)
[2019-08-25] MEDS: APIXABAN 2.5 MG TABLET PO ×2 (05:48→17:18)
[2019-08-25] MEDS: Amiodarone 200 MG Tablet PO (05:48)
[2019-08-25] MEDS: BRIMONIDINE 0.15% 5 ML Bottle 1 DRP EACH EYE ×2 (05:49→17:18)
[2019-08-25] MEDS: 0.9% Saline Lock 10 ML Syringe IV ×4 (05:49→23:27)
[2019-08-25] MEDS: Fluticasone 0.05% 1 SPRAY NASAL.SRY 2 SPRAY NASAL (05:49)
[2019-08-25 05:51] LABS: Absolute Lymphocyte Count 1.36 X10^3/uL (0.83-4.51); Absolute Neutrophil Count 11.9 X10^3/uL (2.0-7.7); Basophil# 0.06 X10^3/uL; Basophil% 0.4 % (0-1); Eosinophil# 0.35 X10^3/uL; Eosinophils% 2.3 % (0-5); Hematocrit 37.9 % (37-47); Hemoglobin 11.8 g/dL (12.0-15.0); Lymphocyte # 1.36 X10^3/ul (4.0); Lymphocyte % 9.1 % (19-41); Mean Corp Hgb Conc 31.1 g/dL (32-36); Mean Corpuscular Hgb 29.6 pg (27.0-32.0); Mean Platelet Vol. 9.7 fl (6.2-12.0); Monocyte% 7.4 % (0-10); NRBC Flagged by Analyzer 0 % (0-5); Neutrophil # 11.88 X10^3/uL (2.7-7.7); Neutrophil % 79.4 % (47-70); Platelet Count 203 K/mm3 (150-450); RBC Distribution Width CV 17.2 % (11.6-14.6); RBC Distribution Width SD 58.6 fl (35.1-43.9); Red Blood Count 3.99 M/mm3 (4.2-5.4)
[2019-08-25] MEDS: Acetaminophen 500 MG Tablet 1000 MG PO ×2 (06:35→13:13)
[2019-08-25 07:30] LABS: Anion Gap 6 (5-15); BUN 23 mg/dL (7-18); BUN/Creat Ratio 22.3 RATIO (10-20); Calcium,Total 8.6 mg/dL (8.5-10.1); Chloride 111 mmol/L (98-107); Creatinine, Serum 1.03 mg/dL (0.55-1.02); EST Glomerular Filtration Rate 55 mL/min (>60); Est Glom Filt Rate - Afr Amer 67 mL/min (>60); Estimated Creatinine Clearance 49.46 ml/min; Glucose 79 mg/dL (74-106); Potassium 3.5 mmol/L (3.5-5.1); Sodium Level 142 mmol/L (136-145)
[2019-08-25 07:56] VITALS: O2SAT 97
[2019-08-25] MEDS: Vitamin B Comp W-C Capsule 1 CAP PO (08:06)
[2019-08-25] MEDS: Aspirin 81 MG TAB.CHEW PO (08:06)
[2019-08-25] MEDS: Magnesium Oxide 400 MG Tablet 200 MG PO (11:14)
[2019-08-25] MEDS: Tuberculin,Purif.prot.deriv. 50 TU/ML Vial 5 ML ID (11:14)
[2019-08-25 11:28] VITALS: RESP 16
--- NOTE | 2019-08-25 11:35 | NURSING ---
Called Dr. Alejandro Rodriguez's office requesting a PICC for patient. Waiting for return call.
--- NOTE | 2019-08-25 12:16 | NURSING ---
Received return call from Dr. Alejandro Rodriguez. Received order for PICC placement. Order repeated back, will add order.
[2019-08-25] MEDS: Multivitamins,Therapeutic Tablet 1 TABLET PO (13:13)
--- NOTE | 2019-08-25 13:22 | NURSING ---
survey workers supervisor notified for need for PICC line. They will notify TCU when they plan to arrive.
--- NOTE | 2019-08-25 14:41 | PN.ID_ITS ---
Subjective: Feeling tired after working with PT, no fever, no abd pain. - Physical Exam Vitals/I&O's: Vital Signs Temp Pulse Resp BP Pulse Ox 97.9 F 94 16 122/74 H 97 08/24/19 18:14 08/24/19 18:14 08/25/19 11:28 08/24/19 18:14 08/25/19 07:56 Oxygen Delivery Method Room Air Weight: 80.824 kg Body Mass Index (BMI) 25.5 Finger Stick Blood Glucose 146 Intake and Output for Last 24 Hours 08/23/19 08/24/19 08/25/19 23:59 23:59 23:59 Intake Total 100 / 100 460 / 460 Balance 100 / 100 460 / 460 General: Alert, Cooperative, No apparent distress Lungs: Diminished Cardiovascular: Regular rate, Regular Rhythm Abdomen: Soft, Non Tender, Non-Distended Skin: No rashes Laboratory Results 08/25/19 05:20: WBC 15.0 H, RBC 3.99 L, Hgb 11.8 L, Hct 37.9, MCV 95.0, MCH 29.6, MCHC 31.1 L, RDW Std Deviation 58.6 H, RDW Coeff of Jackie 17.2 H, Plt Count 203, MPV 9.7, Immature Gran % (Auto) 1.400 H, Neut % (Auto) 79.4 H, Lymph % (Auto) 9.1 L, Stephenson % (Auto) 7.4, Eos % (Auto) 2.3, Baso % (Auto) 0.4, Absolute Neuts (auto) 11.9 H, Absolute Lymphs (auto) 1.36, Nucleated RBC % 0 08/25/19 05:20: Sodium 142, Potassium 3.5, Chloride 111 H, Carbon Dioxide 25.0, Anion Gap 6, BUN 23 H, Creatinine 1.03 H, Estim Creat Clear Calc 49.46, Est GFR (MDRD) Af Amer 67, Est GFR (MDRD) Non-Af 55 L, BUN/Creatinine Ratio 22.3 H, Glucose 79, Calcium 8.6 Current Medications Acetaminophen (Tylenol) 1,000 mg PO Q6H PRN PRN PRN Reason: Pain Score 1-10/10 Last Admin: 08/25/19 13:13 Dose: 1,000 mg Documented by: Albuterol Sulfate (Ventolin Hfa (Sp)) 2 puff INHALATION BID PRN PRN PRN Reason: SOB &/OR WHEEZING Amiodarone HCl (Cordarone) 200 mg PO DAILY [facility] Stop: 09/07/19 06:01 Last Admin: 08/25/19 05:48 Dose: 200 mg Documented by: Amitriptyline HCl (Elavil) 50 mg PO QHS [facility] Last Admin: 08/24/19 21:56 Dose: 50 mg Documented by: Apixaban (Eliquis) 2.5 mg PO BID [facility] Last Admin: 08/25/19 05:48 Dose: 2.5 mg Documented by: Aspirin (Aspirin, Baby) 81 mg PO DAILY@0800 [facility] Last Admin: 08/25/19 08:06 Dose: 81 mg Documented by: Benzonatate (Tessalon Perle) 100 mg PO TID PRN PRN Reason: COUGH Brimonidine Tartrate (Alphagan P 0.15%) 1 drop EACH EYE BID [facility] Last Admin: 08/25/19 05:49 Dose: 1 drop Documented by: Budesonide (Pulmicort Aerosol) 0.5 mg INHALATION BID PRN PRN Reason: WHEEZING OR COUGH Calamine/Phenol (Calmoseptine Ointment) 1 applic TOPICAL 0600,2200 [facility]; Protocol Last Admin: 08/25/19 05:48 Dose: 1 applicatio Documented by: Carvedilol (Coreg) 6.25 mg PO BID [facility] Last Admin: 08/25/19 05:48 Dose: 6.25 mg Documented by: Citalopram Hydrobromide (Celexa) 20 mg PO DAILY [facility] Last Admin: 08/25/19 05:48 Dose: 20 mg Documented by: Fluticasone Propionate (Flonase Nasal [place]) 2 spray NASAL DAILY [facility] Last Admin: 08/25/19 05:49 Dose: 2 spray Documented by: Furosemide (Lasix) 40 mg PO BID [facility] Last Admin: 08/25/19 05:48 Dose: 40 mg Documented by: Gabapentin (Neurontin) 100 mg PO QHS [facility] Last Admin: 08/24/19 21:56 Dose: 100 mg Documented by: Sodium Chloride () 250 mls @ 15 mls/hr IV .[id number] PRN PRN Reason: Saline Flush Last Infusion: 08/24/19 22:30 Dose: 0 mls/hr Documented by: Ampicillin Sodium 2 gm/ Sodium (Chloride) 100 mls @ 200 mls/hr IV Q6 [facility] Stop: 10/02/19 18:01 Levothyroxine Sodium (Synthroid) 88 mcg PO QHS [facility] Last Admin: 08/24/19 21:56 Dose: 88 mcg Documented by: Magnesium Oxide (Mag-Ox 400) 200 mg PO QODAY [facility] Last Admin: 08/25/19 11:14 Dose: 200 mg Documented by: Multivitamins (Allbee W/C Caplet, Thera B Comp/C) 1 capsule PO DAILY@0800 [facility] Last Admin: 08/25/19 08:06 Dose: 1 capsule Documented by: Multivitamins (Multivitamin) 1 tablet PO DAILY@1200 [facility] Last Admin: 08/25/19 13:13 Dose: 1 tablet Documented by: Polyethylene Glycol (Miralax) 17 gm PO QHS [facility] Last Admin: 08/24/19 21:58 Dose: Not Given Documented by: Potassium Chloride (K-Dur) 20 meq PO BIDCM [facility] Last Admin: 08/25/19 08:06 Dose: 20 meq Documented by: Pravastatin Sodium (Pravachol) 40 mg PO QHS [facility] Last Admin: 08/24/19 21:56 Dose: 40 mg Documented by: Sodium Chloride () 10 - 40 ml IV UD PRN PRN Reason: SALINE FLUSH Last Admin: 08/25/19 08:01 Dose: 10 ml Documented by: Tuberculin PPD (Tubersol, Aplisol, Ppd) 5 tu ID [id number] ONE Stop: 09/01/19 10:01 Medical Necessity - Tobacco Use Smoking Status: Never smoker Tobacco Use: Non-smoker Route of nutrition/ use of supplements: [] Nutritional Intake: [] IV Site: [] Andrews Catheter: [] - Assessment/Plan Antibiotics: [] Assessment/Plan: [] Strep mitis bioprosthetic mitral valve endocarditis - Possible oral source with recent dental cleaning, but she reports compliance with abx prophylaxis. Strep less than 0.06 SUDARSHAN to PCN, R to ceftriaxone. Will avoid aminoglycoside due to risk of nephrotoxicity, particularly with her recovering SYA. Repeat bcx neg so far. Picc planned. Plan will be for 6 weeks of iv ampicillin, stop date 10/02/19. Weekly bmp and cbc while on iv abx. Typical recommendation with endocarditis would be for removal/replacement of cardiac devices, but risks may be higher than the benefits for her given her comorbidities. Will increase dose of amp due to improvement in GFR. diarrhea - improved. Neg cdiff. Will follow
--- NOTE | 2019-08-25 15:15 | NURSING ---
power system operator called to say they would arrive between 5:30 -6:30 pm.
--- NOTE | 2019-08-25 15:51 | CHAPLAIN ---
Type of Pastoral Visit _x__ Initial Visit ___ Follow-up Visit ___ On-call Visit ___ General Patient Visit ___ Spiritual Assessment ___ Family Conference ___ Bereavement ___ Rapid Response ___ Code Blue ___ Other (describe below) Pastoral Care Referral From _x__ Patient ___ Family ___ Nurse ___ Physician ___ Instrument Repairer Steam Plant ___ Pattern Scratcher ___ Other (describe below) Sacrament/Intervention _x__ Active listening ___ Anointing ___ Orthodox ___ Bereavement ___ Communion ___ Shelly exploration ___ ___ Life review _x__ Prayer ___ Reconciliation ___ Sacrament of Sick _x__ Supportive presence ___ Wedding ___ Other (describe below) Pastoral Comments follow up from [facility];
[2019-08-25 17:07] VITALS: BP 122/77; PULSE 91; RESP 20; TEMP 36.3; O2SAT 98
--- NOTE | 2019-08-25 19:02 | NURSING ---
Received call from digital sales executive stating they will be here in 20 mins
--- NOTE | 2019-08-25 20:13 | RAD_ITS ---
STUDY: X-RAY CHEST REASON FOR EXAM: Female, 79 years old. PICC line placement. TECHNIQUE: Single AP portable view of the chest. COMPARISON: CT of the chest, August 19, 2019. Chest, August 19, 2019. FINDINGS: There is a right sided PICC line with its tip in the proximal superior vena cava. The lungs are mildly hypoexpanded. There is no new infiltrate or mass. There is no demonstrated pleural abnormality. The heart remains mildly enlarged. Stable cardiac pacemaker. Normal mediastinum and juana. Normal visualized pulmonary arteries. Normal visualized aortic arch and descending thoracic aorta. No visualized osseous changes. There is no demonstrated abnormality of the visualized soft tissue structures of the upper abdomen. RAD/CXR for Line Placement IMPRESSION: 1. Right-sided PICC line as described. 2. No other major change from prior exam. Electronically Signed: Zion Magana DO at 20:49 EST Tel [phone], Service support ,
[2019-08-25] MEDS: Pravastatin 40 MG Tablet PO (21:28)
[2019-08-25] MEDS: Levothyroxine 88 MCG Tablet PO (21:28)
[2019-08-25] MEDS: Gabapentin 100 MG Capsule PO (21:29)
[2019-08-25] MEDS: Amitriptyline 25 MG Tablet 50 MG PO (21:29)
--- NOTE | 2019-08-25 22:44 | PCA ---
TRACTOR TRAILER TRUCK DRIVER offered HS care and patient stated that they received a shower this morning and did not want to get washed up tonight. patient brushed teeth and washed face
[2019-08-26] MEDS: Citalopram 20 MG Tablet PO (05:48)
[2019-08-26] MEDS: Furosemide 40 MG Tablet PO ×2 (05:48→17:05)
[2019-08-26] MEDS: Carvedilol 6.25 MG Tablet PO ×2 (05:49→17:05)
[2019-08-26] MEDS: APIXABAN 2.5 MG TABLET PO ×2 (05:49→17:05)
[2019-08-26] MEDS: Fluticasone 0.05% 1 SPRAY NASAL.SRY 2 SPRAY NASAL (05:49)
[2019-08-26] MEDS: Amiodarone 200 MG Tablet PO (05:49)
[2019-08-26] MEDS: BRIMONIDINE 0.15% 5 ML Bottle 1 DRP EACH EYE ×2 (05:50→17:04)
[2019-08-26] MEDS: Menthol/Lanolin/Calamine/Znox 113 GM Tube 1 APPLIC TOPICAL ×2 (05:51→20:46)
[2019-08-26] MEDS: 0.9% Saline Lock 10 ML Syringe IV ×3 (05:51→17:12)
[2019-08-26] MEDS: Vitamin B Comp W-C Capsule 1 CAP PO (09:05)
[2019-08-26] MEDS: Benzonatate 100 MG Capsule PO (09:05)
[2019-08-26] MEDS: Aspirin 81 MG TAB.CHEW PO (09:05)
[2019-08-26] MEDS: Multivitamins,Therapeutic Tablet 1 TABLET PO (11:30)
--- NOTE | 2019-08-26 14:46 | PHA.CONS_ITS ---
<Jessica Doss - Last Filed: 08/26/19 14:46> Progress Note - Pharmacy Subjective: TCU Admission Objective: Allergies levofloxacin [Levofloxacin] Allergy (Verified 08/19/19 11:24) Hives warfarin [From Coumadin] Allergy (Verified 08/19/19 11:24) Other torsemide [From Demadex] Adverse Reaction (Intermediate, Verified 08/19/19 11:24) Rash Current Medications Generic Name Dose Route Start Last Admin Trade Name Freq PRN Reason Stop Dose Admin Acetaminophen 1,000 mg 08/24/19 21:14 08/25/19 13:13 Tylenol PO 1,000 mg Q6H PRN PRN Administration Pain Score 1-1010 Albuterol Sulfate 2 puff 08/24/19 18:46 Ventolin Hfa (Sp) INHALATION BID PRN PRN SOB &/OR WHEEZING Amiodarone HCl 200 mg 08/25/19 06:00 08/26/19 05:49 Cordarone PO 09/07/19 06:01 200 mg DAILY CHANNING Administration Amitriptyline HCl 50 mg 08/24/19 22:00 08/25/19 21:29 Elavil PO 50 mg QHS CHANNING Administration Apixaban 2.5 mg 08/25/19 06:00 08/26/19 05:49 Eliquis PO 2.5 mg BID CHANNING Administration Aspirin 81 mg 08/25/19 08:00 08/26/19 09:05 Aspirin, Baby PO 81 mg DAILY@0800 [facility]ING Administration Benzonatate 100 mg 08/24/19 18:46 08/26/19 09:05 Tessalon Perle PO 100 mg TID PRN Administration COUGH Brimonidine Tartrate 1 drop 08/25/19 06:00 08/26/19 05:50 Alphagan P 0.15% EACH EYE 1 drop BID [facility]ING Administration Budesonide 0.5 mg 08/24/19 18:46 Pulmicort Aerosol INHALATION BID PRN WHEEZING OR COUGH Calamine/Phenol 1 applic 08/25/19 06:00 08/26/19 05:51 Calmoseptine Ointment TOPICAL 1 applicatio 0600,2200 CHANNING Administration Protocol Carvedilol 6.25 mg 08/25/19 06:00 08/26/19 05:49 Coreg PO 6.25 mg BID CHANNING Administration Citalopram Hydrobromide 20 mg 08/25/19 06:00 08/26/19 05:48 Celexa PO 20 mg DAILY [facility]ANNING Administration Fluticasone Propionate 2 spray 08/25/19 06:00 08/26/19 05:49 Flonase Nasal [place] NASAL 2 spray DAILY CHANNING Administration Furosemide 40 mg 08/25/19 06:00 08/26/19 05:48 Lasix PO 40 mg BID CHANNING Administration Gabapentin 100 mg 08/24/19 22:00 08/25/19 21:29 Neurontin PO 100 mg QHS [facility]ING Administration Sodium Chloride 250 mls @ 15 mls/hr 08/24/19 19:34 08/25/19 23:29 IV 0 mls/hr .[id number] PRN Infusion Saline Flush Ampicillin Sodium 2 gm/ Sodium 100 mls @ 200 mls/hr 08/25/19 13:30 08/26/19 12:34 Chloride IV 10/02/19 18:01 Infused Q6 CHANNING Infusion Levothyroxine Sodium 88 mcg 08/24/19 22:00 08/25/19 21:28 Synthroid PO 88 mcg QHS [facility] Administration Magnesium Oxide 200 mg 08/25/19 10:00 08/25/19 11:14 Mag-Ox 400 PO 200 mg QODAY CHANNING Administration Multivitamins 1 capsule 08/25/19 08:00 08/26/19 09:05 Allbee W/C Caplet, Thera B Comp/C PO 1 capsule DAILY@0800 [facility]ING Administration Multivitamins 1 tablet 08/25/19 12:00 08/26/19 11:30 Multivitamin PO 1 tablet DAILY@1200 [facility]ANNING Administration Polyethylene Glycol 17 gm 08/24/19 22:00 08/25/19 21:29 Miralax PO Not Given QHS [facility]ANNING Potassium Chloride 20 meq 08/25/19 08:00 08/26/19 09:05 K-Dur PO 20 meq BIDCM CHANNING Administration Pravastatin Sodium 40 mg 08/24/19 22:00 08/25/19 21:28 Pravachol PO 40 mg QHS CHANNING Administration Sodium Chloride 10 - 40 ml 08/25/19 17:23 08/26/19 11:50 IV 20 ml UD PRN Administration SALINE FLUSH Tuberculin PPD 5 tu 09/01/19 10:00 Tubersol, Aplisol, Ppd ID 09/01/19 10:01 X1 ONE Problem List (Last Reviewed 08/19/19 @ 17:37 by Kelvin Frazier DO) Glaucoma (Chronic) Neuropathic pain (Chronic) Fecal impaction (Chronic) Atrial fibrillation (Chronic) Coronary artery disease (Chronic) Adrenal insufficiency (Chronic) Vital Signs Temp Pulse Resp BP Pulse Ox 97.4 F L 91 20 H 122/77 H 98 08/25/19 17:07 08/25/19 17:07 08/25/19 17:07 08/25/19 17:07 08/25/19 17:07 Oxygen Delivery Method Room Air Weight: 82.1 kg Body Mass Index (BMI) 25.5 Finger Stick Blood Glucose 146 Sodium 142 mmol/L (136-145) 08/25/19 05:20 Potassium 3.5 mmol/L (3.5-5.1) 08/25/19 05:20 Chloride 111 mmol/L (98-107) H 08/25/19 05:20 Carbon Dioxide 25.0 mmol/L (21.0-32.0) 08/25/19 05:20 Anion Gap 6 (5-15) 08/25/19 05:20 BUN 23 mg/dL (7-18) H 08/25/19 05:20 Creatinine 1.03 mg/dL (0.55-1.02) H 08/25/19 05:20 Est GFR (MDRD) Af Amer 67 mL/min (>60) 08/25/19 05:20 Est GFR (MDRD) Non-Af 55 mL/min (>60) L 08/25/19 05:20 BUN/Creatinine Ratio 22.3 RATIO (10-20) H 08/25/19 05:20 Glucose 79 mg/dL (74-106) 08/25/19 05:20 Assessment/Plan: 1. Pain: acetaminophen 1000mg PO Q6H PRN pain (-05/20). Please continue to monitor for pain and increased PRN usage. 2. Endocarditis: ampicillin 2g IV Q6H thru 10/02/19. Please continue to monitor renal function, diarrhea, and for S/S of infection. *3. Restrictive lung disease: albuterol inhaler 2 inhalations BID PRN SOB &/OR WHEEZING and budesonide 0.5mg inhalation BID PRN wheezing or cough. Please add instructions for first line or second line for wheezing. Thanks. Please continue to monitor for SOB, wheezing and increased PRN usage. *4. Atrial fibrillation/coronary artery disease/CHF: carvedilol 6.25mg PO BID, amiodarone 200mg PO daily, apixaban 2.5mg PO BID, aspirin 81mg PO DAILYCM, furosemide 40mg PO BID. Please continue to monitor HR, BP, electrolytes, S/S of bleeding/DVT. Per last encounter, it looks like patient should still be on amiodarone 200mg PO BID (08/24/2019 - 09/07/2019) then decrease to 200mg PO daily on 09/08/2019. Please consider changing to BID if clinically appropriate. Thanks. 5. Neuropathic pain: amitriptyline 50mg PO QHS and gabapentin 100mg PO QHS. Please continue to monitor for neuropathic pain and renal function. *6. Cough: benzonatate 100mg PO TID PRN cough. Please add first line or second line for benzonatate and budesonide. Thanks. 7. Glaucoma: brimonidine 0.15% 1gtt in each eye BID. Please continue to monitor for S/S of glaucoma. 8. Allergic rhinitis: fluticasone nasal spray 0.05% 2 sprays in each nostril daily. Please continue to monitor for S/S of allergic rhinitis. 9. Hypothyroidism: levothyroxine 88mcg PO QHS. Recent TSH in chart. Please continue to monitor for S/S of hypo/hyperthyroidism. 10. Hyperlipidemia: pravastatin 40mg PO QHS. Recent lipid panel and LFT's in patient's chart. Please continue to monitor for muscle pain. 11. Electrolyte deficiencies/overall nutrition: magnesium oxide 200mg PO every other day, potassium chloride 20mEq PO BID, vitamin B complex 1C PO DAILYCM, and multivitamin 1T PO daily. Please continue to monitor magnesium and potassium. Psychotropic Medications: *1. Depression: citalopram 20mg PO daily. Please consider GDR by 02/2020 if clinically appropriate. Thanks. Unnecessary Medications: None *Bowel Regimen: Miralax 17gm PO QHS. Patient has refused 2/2 doses. Please consider changing to PRN constipation if patient continues to refuse doses. Thanks. Date of Note:: 08/26/19 - Provider Comments Provider responsibility: Provider responsible to enter orders to implement recommendations <Riky,Farhat Chi - Last Filed: 08/26/19 16:44> Progress Note - Pharmacy Subjective: [] Objective: Allergies levofloxacin [Levofloxacin] Allergy (Verified 08/19/19 11:24) Hives warfarin [From Coumadin] Allergy (Verified 08/19/19 11:24) Other torsemide [From Demadex] Adverse Reaction (Intermediate, Verified 08/19/19 11:24) Rash Current Medications Generic Name Dose Route Start Last Admin Trade Name Freq PRN Reason Stop Dose Admin Acetaminophen 1,000 mg 08/24/19 21:14 08/25/19 13:13 Tylenol PO 1,000 mg Q6H PRN PRN Administration Pain Score 1-10/10 Albuterol Sulfate 2 puff 08/24/19 18:46 Ventolin Hfa (Sp) INHALATION BID PRN PRN SOB &/OR WHEEZING Amiodarone HCl 200 mg 08/25/19 06:00 08/26/19 05:49 Cordarone PO 09/07/19 06:01 200 mg DAILY CHANNING Administration Amitriptyline HCl 50 mg 08/24/19 22:00 08/25/19 21:29 Elavil PO 50 mg QHS CHANNING Administration Apixaban 2.5 mg 08/25/19 06:00 08/26/19 05:49 Eliquis PO 2.5 mg BID CHANNING Administration Aspirin 81 mg 08/25/19 08:00 08/26/19 09:05 Aspirin, Baby PO 81 mg DAILY@0800 CHANNING Administration Benzonatate 100 mg 08/24/19 18:46 08/26/19 09:05 Tessalon Perle PO 100 mg TID PRN Administration COUGH Brimonidine Tartrate 1 drop 08/25/19 06:00 08/26/19 05:50 Alphagan P 0.15% EACH EYE 1 drop BID CHANNING Administration Budesonide 0.5 mg 08/24/19 18:46 Pulmicort Aerosol INHALATION BID PRN WHEEZING OR COUGH Calamine/Phenol 1 applic 08/25/19 06:00 08/26/19 05:51 Calmoseptine Ointment TOPICAL 1 applicatio 0600,2200 CHANNING Administration Protocol Carvedilol 6.25 mg 08/25/19 06:00 08/26/19 05:49 Coreg PO 6.25 mg BID CHANNING Administration Citalopram Hydrobromide 20 mg 08/25/19 06:00 08/26/19 05:48 Celexa PO 20 mg DAILY [facility]ANNING Administration Fluticasone Propionate 2 spray 08/25/19 06:00 08/26/19 05:49 Flonase Nasal [place] NASAL 2 spray DAILY CHANNING Administration Furosemide 40 mg 08/25/19 06:00 08/26/19 05:48 Lasix PO 40 mg BID CHANNING Administration Gabapentin 100 mg 08/24/19 22:00 08/25/19 21:29 Neurontin PO 100 mg QHS CHANNING Administration Sodium Chloride 250 mls @ 15 mls/hr 08/24/19 19:34 08/25/19 23:29 IV 0 mls/hr .[id number] PRN Infusion Saline Flush Ampicillin Sodium 2 gm/ Sodium 100 mls @ 200 mls/hr 08/25/19 13:30 08/26/19 12:34 Chloride IV 10/02/19 18:01 Infused Q6 CHANNING Infusion Levothyroxine Sodium 88 mcg 08/24/19 22:00 08/25/19 21:28 Synthroid PO 88 mcg QHS CHANNING Administration Magnesium Oxide 200 mg 08/25/19 10:00 08/25/19 11:14 Mag-Ox 400 PO 200 mg QODAY CHANNING Administration Multivitamins 1 capsule 08/25/19 08:00 08/26/19 09:05 Allbee W/C Caplet, Thera B Comp/C PO 1 capsule DAILY@0800 CHANNING Administration Multivitamins 1 tablet 08/25/19 12:00 08/26/19 11:30 Multivitamin PO 1 tablet DAILY@1200 CHANNING Administration Polyethylene Glycol 17 gm 08/24/19 22:00 08/25/19 21:29 Miralax PO Not Given QHS CHANNING Potassium Chloride 20 meq 08/25/19 08:00 08/26/19 09:05 K-Dur PO 20 meq BIDCM CHANNING Administration Pravastatin Sodium 40 mg 08/24/19 22:00 08/25/19 21:28 Pravachol PO 40 mg QHS CHANNING Administration Sodium Chloride 10 - 40 ml 08/25/19 17:23 08/26/19 11:50 IV 20 ml UD PRN Administration SALINE FLUSH Tuberculin PPD 5 tu 09/01/19 10:00 Tubersol, Aplisol, Ppd ID 09/01/19 10:01 X1 ONE Problem List (Last Reviewed 08/19/19 @ 17:37 by Kelvin Frazier DO) Glaucoma (Chronic) Neuropathic pain (Chronic) Fecal impaction (Chronic) Atrial fibrillation (Chronic) Coronary artery disease (Chronic) Adrenal insufficiency (Chronic) Vital Signs Temp Pulse Resp BP Pulse Ox 98.5 F 66 22 H 121/76 H 94 08/26/19 15:30 08/26/19 15:30 08/26/19 15:30 08/26/19 15:30 08/26/19 15:30 Oxygen Delivery Method Room Air Weight: 82.1 kg Body Mass Index (BMI) 25.5 Finger Stick Blood Glucose 146 Sodium 142 mmol/L (136-145) 08/25/19 05:20 Potassium 3.5 mmol/L (3.5-5.1) 08/25/19 05:20 Chloride 111 mmol/L (98-107) H 08/25/19 05:20 Carbon Dioxide 25.0 mmol/L (21.0-32.0) 08/25/19 05:20 Anion Gap 6 (5-15) 08/25/19 05:20 BUN 23 mg/dL (7-18) H 08/25/19 05:20 Creatinine 1.03 mg/dL (0.55-1.02) H 08/25/19 05:20 Est GFR (MDRD) Af Amer 67 mL/min (>60) 08/25/19 05:20 Est GFR (MDRD) Non-Af 55 mL/min (>60) L 08/25/19 05:20 BUN/Creatinine Ratio 22.3 RATIO (10-20) H 08/25/19 05:20 Glucose 79 mg/dL (74-106) 08/25/19 05:20 Assessment/Plan: Psychotropic Medications: Unnecessary Medications: Bowel Regimen: - Provider Comments Provider responsibility: Provider responsible to enter orders to implement recommendations Provider Comments to Recommendations by Pharmacy: Agree
[2019-08-26 15:30] VITALS: BP 121/76; PULSE 66; RESP 22; TEMP 36.9; O2SAT 94
[2019-08-26] MEDS: Gabapentin 100 MG Capsule PO (20:44)
[2019-08-26] MEDS: Pravastatin 40 MG Tablet PO (20:44)
[2019-08-26] MEDS: Amitriptyline 25 MG Tablet 50 MG PO (20:44)
[2019-08-26] MEDS: Levothyroxine 88 MCG Tablet PO (20:45)
[2019-08-27] MEDS: 0.9% Saline Lock 10 ML Syringe IV ×5 (00:14→23:56)
[2019-08-27] MEDS: Acetaminophen 500 MG Tablet 1000 MG PO ×3 (00:20→20:16)
[2019-08-27] MEDS: BRIMONIDINE 0.15% 5 ML Bottle 1 DRP EACH EYE ×2 (06:25→17:30)
[2019-08-27] MEDS: Menthol/Lanolin/Calamine/Znox 113 GM Tube 1 APPLIC TOPICAL ×2 (06:26→20:17)
[2019-08-27] MEDS: Citalopram 20 MG Tablet PO (06:26)
[2019-08-27] MEDS: Carvedilol 6.25 MG Tablet PO ×2 (06:27→17:30)
[2019-08-27] MEDS: Furosemide 40 MG Tablet PO ×2 (06:27→17:30)
[2019-08-27] MEDS: Amiodarone 200 MG Tablet PO (06:27)
[2019-08-27] MEDS: APIXABAN 2.5 MG TABLET PO ×2 (06:27→17:30)
[2019-08-27] MEDS: Fluticasone 0.05% 1 SPRAY NASAL.SRY 2 SPRAY NASAL (06:28)
[2019-08-27 06:38] VITALS: BP 111/61; PULSE 88
[2019-08-27] MEDS: Magnesium Oxide 400 MG Tablet 200 MG PO (08:49)
[2019-08-27] MEDS: Aspirin 81 MG TAB.CHEW PO (08:50)
[2019-08-27] MEDS: Vitamin B Comp W-C Capsule 1 CAP PO (08:50)
[2019-08-27] MEDS: Multivitamins,Therapeutic Tablet 1 TABLET PO (11:15)
--- NOTE | 2019-08-27 14:37 | CASEMGMT ---
Social Work Spoke with patient about Palliative Medicine. Educated to services as pt has resp. and heart issues. Pt agreeable to referral. Referral made to [facility]. Will continue to follow. Shakila Souza, [employer] MEDICINE SPECIALIST
[2019-08-27 16:00] VITALS: BP 136/73; PULSE 74; RESP 18; TEMP 36.8; O2SAT 98
[2019-08-27 20:05] VITALS: BP 106/68; PULSE 77; RESP 18; RESP 20; TEMP 36.7; O2SAT 92
[2019-08-27] MEDS: Gabapentin 100 MG Capsule PO (20:16)
[2019-08-27] MEDS: Levothyroxine 88 MCG Tablet PO (20:16)
[2019-08-27] MEDS: Pravastatin 40 MG Tablet PO (20:16)
[2019-08-27] MEDS: Amitriptyline 25 MG Tablet 50 MG PO (20:16)
[2019-08-28] MEDS: Citalopram 20 MG Tablet PO (06:23)
[2019-08-28] MEDS: BRIMONIDINE 0.15% 5 ML Bottle 1 DRP EACH EYE ×2 (06:23→17:07)
[2019-08-28] MEDS: Carvedilol 6.25 MG Tablet PO ×2 (06:23→17:06)
[2019-08-28] MEDS: Menthol/Lanolin/Calamine/Znox 113 GM Tube 1 APPLIC TOPICAL ×2 (06:23→21:55)
[2019-08-28] MEDS: Amiodarone 200 MG Tablet PO (06:23)
[2019-08-28] MEDS: Furosemide 40 MG Tablet PO ×2 (06:23→17:06)
[2019-08-28] MEDS: APIXABAN 2.5 MG TABLET PO ×2 (06:23→17:06)
[2019-08-28] MEDS: Fluticasone 0.05% 1 SPRAY NASAL.SRY 2 SPRAY NASAL (06:24)
[2019-08-28] MEDS: Acetaminophen 500 MG Tablet 1000 MG PO ×2 (06:28→17:17)
[2019-08-28] MEDS: Vitamin B Comp W-C Capsule 1 CAP PO (09:25)
[2019-08-28] MEDS: Aspirin 81 MG TAB.CHEW PO (09:25)
[2019-08-28] MEDS: Multivitamins,Therapeutic Tablet 1 TABLET PO (12:54)
[2019-08-28 15:52] VITALS: BP 116/72; PULSE 84; RESP 20; TEMP 36.6; O2SAT 94
[2019-08-28] MEDS: Levothyroxine 88 MCG Tablet PO (21:49)
[2019-08-28] MEDS: Gabapentin 100 MG Capsule PO (21:49)
[2019-08-28] MEDS: Amitriptyline 25 MG Tablet 50 MG PO (21:49)
[2019-08-28] MEDS: Pravastatin 40 MG Tablet PO (21:49)
[2019-08-28] MEDS: 0.9% Saline Lock 10 ML Syringe IV ×2 (22:20→23:51)
[2019-08-29 05:22] VITALS: BP 129/70; PULSE 85
[2019-08-29] MEDS: BRIMONIDINE 0.15% 5 ML Bottle 1 DRP EACH EYE ×2 (05:23→17:38)
[2019-08-29] MEDS: Citalopram 20 MG Tablet PO (05:24)
[2019-08-29] MEDS: Furosemide 40 MG Tablet PO ×2 (05:24→17:38)
[2019-08-29] MEDS: Carvedilol 6.25 MG Tablet PO ×2 (05:24→17:38)
[2019-08-29] MEDS: Amiodarone 200 MG Tablet PO (05:24)
[2019-08-29] MEDS: Fluticasone 0.05% 1 SPRAY NASAL.SRY 2 SPRAY NASAL (05:25)
[2019-08-29] MEDS: Menthol/Lanolin/Calamine/Znox 113 GM Tube 1 APPLIC TOPICAL ×2 (05:30→21:13)
[2019-08-29] MEDS: APIXABAN 2.5 MG TABLET PO ×2 (05:30→17:38)
[2019-08-29] MEDS: 0.9% Saline Lock 10 ML Syringe IV ×3 (05:32→23:23)
[2019-08-29] MEDS: Vitamin B Comp W-C Capsule 1 CAP PO (08:14)
[2019-08-29] MEDS: Aspirin 81 MG TAB.CHEW PO (08:14)
--- NOTE | 2019-08-29 09:18 | NURSING ---
[facility] contacted, will have nurse in to assess PICC between 12-1 pm
[2019-08-29] MEDS: Magnesium Oxide 400 MG Tablet 200 MG PO (11:36)
[2019-08-29] MEDS: Multivitamins,Therapeutic Tablet 1 TABLET PO (11:36)
--- NOTE | 2019-08-29 13:52 | RAD_ITS ---
STUDY: X-RAY CHEST REASON FOR EXAM: Female, 79 years old. NEW LINE PLACEMENT TECHNIQUE: AP COMPARISON: 08/25/2019 FINDINGS: Right arm PICC is in place with tip extending to the lower SVC. Cardiac conduction device is stable. Dense nodule in the right midlung zone compatible with a granuloma, stable. There is no demonstrated pleural abnormality. There is mild cardiac enlargement. Sternal wires and mediastinal surgical clips compatible with prior CABG. Normal visualized pulmonary arteries. Normal visualized aortic arch and descending thoracic aorta. No acute bony process. There is no demonstrated abnormality of the visualized soft tissue structures of the upper abdomen. RAD/CXR for Line Placement IMPRESSION: 1. Satisfactory position of right arm PICC. Electronically Signed: Woody Gruber MD (Brooks) at 14:22 EST , Service support ,
[2019-08-29] MEDS: Acetaminophen 500 MG Tablet 1000 MG PO (15:01)
[2019-08-29 16:00] VITALS: BP 126/63; PULSE 101; RESP 18; TEMP 37.1; O2SAT 94
[2019-08-29] MEDS: Pravastatin 40 MG Tablet PO (21:11)
[2019-08-29] MEDS: Gabapentin 100 MG Capsule PO (21:12)
[2019-08-29] MEDS: Levothyroxine 88 MCG Tablet PO (21:12)
[2019-08-29] MEDS: Amitriptyline 25 MG Tablet 50 MG PO (21:12)
[2019-08-30] MEDS: Acetaminophen 500 MG Tablet 1000 MG PO ×2 (03:22→16:44)
[2019-08-30] MEDS: Menthol/Lanolin/Calamine/Znox 113 GM Tube 1 APPLIC TOPICAL ×2 (05:58→22:02)
[2019-08-30] MEDS: 0.9% Saline Lock 10 ML Syringe IV (05:59)
[2019-08-30] MEDS: BRIMONIDINE 0.15% 5 ML Bottle 1 DRP EACH EYE ×2 (05:59→16:45)
[2019-08-30] MEDS: Fluticasone 0.05% 1 SPRAY NASAL.SRY 2 SPRAY NASAL (06:00)
[2019-08-30] MEDS: Amiodarone 200 MG Tablet PO (06:00)
[2019-08-30] MEDS: Furosemide 40 MG Tablet PO ×2 (06:01→16:45)
[2019-08-30] MEDS: Carvedilol 6.25 MG Tablet PO ×2 (06:01→16:45)
[2019-08-30] MEDS: APIXABAN 2.5 MG TABLET PO ×2 (06:01→16:44)
[2019-08-30] MEDS: Citalopram 20 MG Tablet PO (06:01)
[2019-08-30 06:11] VITALS: BP 119/84; PULSE 89
[2019-08-30] MEDS: Aspirin 81 MG TAB.CHEW PO (08:24)
[2019-08-30] MEDS: Vitamin B Comp W-C Capsule 1 CAP PO (08:25)
[2019-08-30] MEDS: Multivitamins,Therapeutic Tablet 1 TABLET PO (11:44)
[2019-08-30 16:00] VITALS: BP 109/65; PULSE 79; RESP 22; TEMP 36.7; O2SAT 95
[2019-08-30] MEDS: Amitriptyline 25 MG Tablet 50 MG PO (21:58)
[2019-08-30] MEDS: Gabapentin 100 MG Capsule PO (21:59)
[2019-08-30] MEDS: Levothyroxine 88 MCG Tablet PO (21:59)
[2019-08-30] MEDS: Pravastatin 40 MG Tablet PO (21:59)
[2019-08-31] MEDS: 0.9% Saline Lock 10 ML Syringe IV ×3 (00:14→23:39)
[2019-08-31] MEDS: Fluticasone 0.05% 1 SPRAY NASAL.SRY 2 SPRAY NASAL (06:27)
[2019-08-31] MEDS: BRIMONIDINE 0.15% 5 ML Bottle 1 DRP EACH EYE ×2 (06:27→18:06)
[2019-08-31] MEDS: Furosemide 40 MG Tablet PO ×2 (06:28→18:07)
[2019-08-31] MEDS: APIXABAN 2.5 MG TABLET PO ×2 (06:28→18:07)
[2019-08-31] MEDS: Citalopram 20 MG Tablet PO (06:28)
[2019-08-31] MEDS: Carvedilol 6.25 MG Tablet PO ×2 (06:28→18:07)
[2019-08-31] MEDS: Amiodarone 200 MG Tablet PO (06:28)
[2019-08-31] MEDS: Menthol/Lanolin/Calamine/Znox 113 GM Tube 1 APPLIC TOPICAL ×2 (06:30→21:19)
[2019-08-31] MEDS: Magnesium Oxide 400 MG Tablet 200 MG PO (09:04)
[2019-08-31] MEDS: Vitamin B Comp W-C Capsule 1 CAP PO (09:05)
[2019-08-31] MEDS: Aspirin 81 MG TAB.CHEW PO (09:05)
[2019-08-31] MEDS: Multivitamins,Therapeutic Tablet 1 TABLET PO (11:44)
--- NOTE | 2019-08-31 15:08 | CASEMGMT ---
Social Work Pt and scheduled appt with [facility] on 09/01 at 2 pm. Will continue to follow. MADIOSN HallW
--- NOTE | 2019-08-31 15:13 | NURSING ---
Addendum entered by Sasha Gil 08/31/19 17:01: Sushil Blair, returned call, wants amiodarone left at 200 mg daily and get labs tomorrow in AM Addendum entered by Sasha Gil 08/31/19 15:15: awaiting return call from Sushil Blair NP to clarify amiodarone order and labs. Original Note: returned from appt with Sushil Blair NP from cardiology, orders written for BMP, BNP & amiodarone, echo in 5 wks to assess vegetation on mitral valve, continue to monitor weight & I/O.
[2019-08-31 16:00] VITALS: BP 117/74; PULSE 82; RESP 20; TEMP 36.3; O2SAT 93
[2019-08-31 20:51] VITALS: PULSE 71; O2SAT 93
[2019-08-31] MEDS: Pravastatin 40 MG Tablet PO (21:19)
[2019-08-31] MEDS: Gabapentin 100 MG Capsule PO (21:19)
[2019-08-31] MEDS: Levothyroxine 88 MCG Tablet PO (21:19)
[2019-08-31] MEDS: Amitriptyline 25 MG Tablet 50 MG PO (21:19)
[2019-08-31] MEDS: Acetaminophen 500 MG Tablet 1000 MG PO (21:23)
[2019-09-01 05:32] LABS: Absolute Lymphocyte Count 1.24 X10^3/uL (0.83-4.51); Absolute Neutrophil Count 5.7 X10^3/uL (2.0-7.7); Basophil# 0.04 X10^3/uL; Basophil% 0.5 % (0-1); Eosinophil# 0.35 X10^3/uL; Eosinophils% 4.2 % (0-5); Hematocrit 32.1 % (37-47); Hemoglobin 9.8 g/dL (12.0-15.0); Lymphocyte # 1.24 X10^3/ul (4.0); Mean Corp Hgb Conc 30.5 g/dL (32-36); Mean Corpuscular Hgb 29.1 pg (27.0-32.0); Mean Corpuscular Volume 95.3 fL (81-99); Mean Platelet Vol. 9.3 fl (6.2-12.0); Monocyte# 0.88 X10^3/uL; Monocyte% 10.7 % (0-10); NRBC Flagged by Analyzer 0 % (0-5); Neutrophil # 5.69 X10^3/uL (2.7-7.7); Neutrophil % 69.1 % (47-70); Platelet Count 178 K/mm3 (150-450); RBC Distribution Width CV 18.3 % (11.6-14.6); RBC Distribution Width SD 61.1 fl (35.1-43.9); Red Blood Count 3.37 M/mm3 (4.2-5.4); White Blood Count 8.2 K/mm3 (4.4-11.0)
[2019-09-01] MEDS: 0.9% Saline Lock 10 ML Syringe IV ×2 (05:54→21:30)
[2019-09-01] MEDS: Fluticasone 0.05% 1 SPRAY NASAL.SRY 2 SPRAY NASAL (06:00)
[2019-09-01] MEDS: BRIMONIDINE 0.15% 5 ML Bottle 1 DRP EACH EYE ×2 (06:00→17:08)
[2019-09-01] MEDS: Carvedilol 6.25 MG Tablet PO ×2 (06:03→17:08)
[2019-09-01] MEDS: Citalopram 20 MG Tablet PO (06:03)
[2019-09-01] MEDS: APIXABAN 2.5 MG TABLET PO ×2 (06:03→17:08)
[2019-09-01] MEDS: Furosemide 40 MG Tablet PO ×2 (06:03→17:08)
[2019-09-01] MEDS: Amiodarone 200 MG Tablet PO (06:03)
[2019-09-01] MEDS: Menthol/Lanolin/Calamine/Znox 113 GM Tube 1 APPLIC TOPICAL ×2 (06:06→21:33)
[2019-09-01 06:08] LABS: Anion Gap 6 (5-15); BUN 28 mg/dL (7-18); BUN/Creat Ratio 17.7 RATIO (10-20); Calcium,Total 8.4 mg/dL (8.5-10.1); Chloride 105 mmol/L (98-107); Creatinine, Serum 1.58 mg/dL (0.55-1.02); EST Glomerular Filtration Rate 34 mL/min (>60); Est Glom Filt Rate - Afr Amer 41 mL/min (>60); Estimated Creatinine Clearance 32.24 ml/min; Glucose 87 mg/dL (74-106); Sodium Level 138 mmol/L (136-145)
[2019-09-01] MEDS: Vitamin B Comp W-C Capsule 1 CAP PO (09:45)
[2019-09-01] MEDS: Aspirin 81 MG TAB.CHEW PO (09:46)
--- NOTE | 2019-09-01 10:59 | NURSING ---
RECEIVED CALL FROM [facility]. PER [facility], DR GOMEZ AWARE OF THIS AM'S LAB RESULTS. ALSO, WANT TO BE SURE PICC LINE IS NOT DC'D UNTIL LABS WNL. MAY WANT REPEAT LABS, CULTURES? PRIOR TO MAKING DECISION.
[2019-09-01] MEDS: Tuberculin,Purif.prot.deriv. 50 TU/ML Vial 5 ML ID (11:29)
[2019-09-01] MEDS: Multivitamins,Therapeutic Tablet 1 TABLET PO (11:29)
[2019-09-01] MEDS: Acetaminophen 500 MG Tablet 1000 MG PO (11:41)
--- NOTE | 2019-09-01 14:22 | PCM.PN.ID ---
Subjective: Feeling ok, no fever, no n/v/d. - Physical Exam Vitals/I&O's: Vital Signs Temp Pulse Resp BP Pulse Ox 97.3 F L 71 20 H 117/74 93 08/31/19 16:00 08/31/19 20:51 08/31/19 16:00 08/31/19 16:00 08/31/19 20:51 Oxygen Delivery Method Room Air Weight: 81.193 kg Body Mass Index (BMI) 25.5 Finger Stick Blood Glucose 146 Intake and Output for Last 24 Hours 08/30/19 08/31/19 09/01/19 23:59 23:59 23:59 Intake Total 1290 / 1290 820 / 820 903.33 / 903.33 Output Total 1200 / 1200 Balance 90 / 90 820 / 820 903.33 / 903.33 General: Alert, Cooperative, No apparent distress Lungs: Clear to auscultation, Normal air movement Cardiovascular: Regular rate, Regular Rhythm Abdomen: Soft, Non Tender, Non-Distended Skin: No rashes Laboratory Results 09/01/19 05:24: WBC 8.2, RBC 3.37 L, Hgb 9.8 L, Hct 32.1 L, MCV 95.3, MCH 29.1, MCHC 30.5 L, RDW Std Deviation 61.1 H, RDW Coeff of Jackie 18.3 H, Plt Count 178, MPV 9.3, Immature Gran % (Auto) 0.500, Neut % (Auto) 69.1, Lymph % (Auto) 15.0 L, [place] % (Auto) 10.7 H, Eos % (Auto) 4.2, Baso % (Auto) 0.5, Absolute Neuts (auto) 5.7, Absolute Lymphs (auto) 1.24, Nucleated RBC % 0 09/01/19 05:24: Sodium 138, Potassium 4.0, Chloride 105, Carbon Dioxide 27.0, Anion Gap 6, BUN 28 H, Creatinine 1.58 H, Estim Creat Clear Calc 32.24, Est GFR (MDRD) Af Amer 41 L, Est GFR (MDRD) Non-Af 34 L, BUN/Creatinine Ratio 17.7, Glucose 87, Calcium 8.4 L 09/01/19 05:24: B-Natriuretic Peptide 2721.7 H Current Medications Acetaminophen (Tylenol) 1,000 mg PO Q6H PRN PRN PRN Reason: Pain Score 1-10/10 Last Admin: 09/01/19 11:41 Dose: 1,000 mg Documented by: Albuterol Sulfate (Ventolin Hfa (Sp)) 2 puff INHALATION BID PRN PRN PRN Reason: SOB &/OR WHEEZING Amiodarone HCl (Cordarone) 200 mg PO DAILY [facility] Stop: 09/07/19 06:01 Last Admin: 09/01/19 06:03 Dose: 200 mg Documented by: Amitriptyline HCl (Elavil) 50 mg PO QHS [facility] Last Admin: 08/31/19 21:19 Dose: 50 mg Documented by: Apixaban (Eliquis) 2.5 mg PO BID [facility] Last Admin: 09/01/19 06:03 Dose: 2.5 mg Documented by: Aspirin (Aspirin, Baby) 81 mg PO DAILY@0800 [facility] Last Admin: 09/01/19 09:46 Dose: 81 mg Documented by: Benzonatate (Tessalon Perle) 100 mg PO TID PRN PRN Reason: COUGH Last Admin: 08/26/19 09:05 Dose: 100 mg Documented by: Brimonidine Tartrate (Alphagan P 0.15%) 1 drop EACH EYE BID [facility] Last Admin: 09/01/19 06:00 Dose: 1 drop Documented by: Budesonide (Pulmicort Aerosol) 0.5 mg INHALATION BID PRN PRN Reason: WHEEZING Calamine/Phenol (Calmoseptine Ointment) 1 applic TOPICAL 0600,2200 [facility]; Protocol Last Admin: 09/01/19 06:06 Dose: 1 applicatio Documented by: Carvedilol (Coreg) 6.25 mg PO BID [facility] Last Admin: 09/01/19 06:03 Dose: 6.25 mg Documented by: Citalopram Hydrobromide (Celexa) 20 mg PO DAILY [facility] Last Admin: 09/01/19 06:03 Dose: 20 mg Documented by: Fluticasone Propionate (Flonase Nasal [place]) 2 spray NASAL DAILY [facility] Last Admin: 09/01/19 06:00 Dose: 2 spray Documented by: Furosemide (Lasix) 40 mg PO BID [facility] Last Admin: 09/01/19 06:03 Dose: 40 mg Documented by: Gabapentin (Neurontin) 100 mg PO QHS [facility] Last Admin: 08/31/19 21:19 Dose: 100 mg Documented by: Sodium Chloride () 250 mls @ 15 mls/hr IV .[id number] PRN PRN Reason: Saline Flush Last Infusion: 09/01/19 06:33 Dose: Infused Documented by: Ampicillin Sodium 2 gm/ Sodium (Chloride) 100 mls @ 200 mls/hr IV Q8H [facility] Stop: 10/02/19 18:01 Levothyroxine Sodium (Synthroid) 88 mcg PO QHS [facility] Last Admin: 08/31/19 21:19 Dose: 88 mcg Documented by: Magnesium Oxide (Mag-Ox 400) 200 mg PO QODAY [facility] Last Admin: 08/31/19 09:04 Dose: 200 mg Documented by: Multivitamins (Allbee W/C Caplet, Thera B Comp/C) 1 capsule PO DAILY@0800 [facility] Last Admin: 09/01/19 09:45 Dose: 1 capsule Documented by: Multivitamins (Multivitamin) 1 tablet PO DAILY@1200 [facility] Last Admin: 09/01/19 11:29 Dose: 1 tablet Documented by: Polyethylene Glycol (Miralax) 17 gm PO QHS PRN PRN Reason: Constipation Potassium Chloride (K-Dur) 20 meq PO BIDCM [facility] Last Admin: 09/01/19 09:46 Dose: 20 meq Documented by: Pravastatin Sodium (Pravachol) 40 mg PO QHS [facility] Last Admin: 08/31/19 21:19 Dose: 40 mg Documented by: Sodium Chloride () 10 - 40 ml IV UD PRN PRN Reason: SALINE FLUSH Last Admin: 09/01/19 05:54 Dose: 10 ml Documented by: Medical Necessity - Tobacco Use Smoking Status: Never smoker Tobacco Use: Non-smoker Route of nutrition/ use of supplements: [] Nutritional Intake: [] IV Site: [] Andrews Catheter: [] - Assessment/Plan Antibiotics: [] Assessment/Plan: [] Strep mitis bioprosthetic mitral valve endocarditis - Possible oral source with recent dental cleaning, but she reports compliance with abx prophylaxis. Strep less than 0.06 SUDARSHAN to PCN, R to ceftriaxone. Will avoid aminoglycoside due to risk of nephrotoxicity, particularly with her recovering SAY. Repeat bcx neg. Plan will be for 6 weeks of iv ampicillin, stop date 10/02/19. Weekly bmp and cbc while on iv abx. Typical recommendation with endocarditis would be for removal/replacement of cardiac devices, but risks may be higher than the benefits for her given her comorbidities. Cr worsened today, will adjust ampicillin dose. Will follow
[2019-09-01 16:00] VITALS: BP 117/79; PULSE 70; RESP 20; TEMP 36.4; O2SAT 97
--- NOTE | 2019-09-01 16:03 | CHAPLAIN ---
Type of Pastoral Visit ___ Initial Visit _x__ Follow-up Visit ___ On-call Visit ___ General Patient Visit ___ Spiritual Assessment ___ Family Conference ___ Bereavement ___ Rapid Response ___ Code Blue ___ Other (describe below) Pastoral Care Referral From _x__ Patient ___ Family ___ Nurse ___ Physician ___ Counter Weigher ___ Armored Cable Machine Operator ___ Other (describe below) Sacrament/Intervention _x__ Active listening ___ Anointing ___ Hindu ___ Bereavement ___ Communion ___ Shelly exploration ___ ___ Life review ___ Prayer ___ Reconciliation ___ Sacrament of Sick _x__ Supportive presence ___ Wedding ___ Other (describe below) Pastoral Comments talked with patient and several family members prior to a family meeting for Palliative Care; pt is looking better and appears to have made improvements in last week; pt seems to have a positive attitude today and is looking forward to seeing her daughter who is flying in for this meeting
--- NOTE | 2019-09-01 17:17 | CASEMGMT ---
Social Work Patient and family met with Palliative Medicine on this date. Pt and dtr expressed she has good relationships with two physicians whom she can call 03/03 and assist in symptom management. Pt feels at this time she does not need Palliative but agreeable to possibly try in the future. Will continue to follow. Shakila Souza, [facility]
[2019-09-01] MEDS: Amitriptyline 25 MG Tablet 50 MG PO (21:31)
[2019-09-01] MEDS: Gabapentin 100 MG Capsule PO (21:31)
[2019-09-01] MEDS: Pravastatin 40 MG Tablet PO (21:31)
[2019-09-01] MEDS: Levothyroxine 88 MCG Tablet PO (21:31)
[2019-09-02 05:27] VITALS: BP 112/65; PULSE 79
[2019-09-02] MEDS: Menthol/Lanolin/Calamine/Znox 113 GM Tube 1 APPLIC TOPICAL ×2 (05:30→20:29)
[2019-09-02] MEDS: 0.9% Saline Lock 10 ML Syringe IV ×3 (05:34→20:32)
[2019-09-02] MEDS: Furosemide 40 MG Tablet PO ×2 (05:38→17:48)
[2019-09-02] MEDS: Carvedilol 6.25 MG Tablet PO ×2 (05:38→17:48)
[2019-09-02] MEDS: APIXABAN 2.5 MG TABLET PO ×2 (05:38→17:48)
[2019-09-02] MEDS: Amiodarone 200 MG Tablet PO (05:38)
[2019-09-02] MEDS: Citalopram 20 MG Tablet PO (05:38)
[2019-09-02] MEDS: BRIMONIDINE 0.15% 5 ML Bottle 1 DRP EACH EYE ×2 (05:39→17:47)
[2019-09-02] MEDS: Fluticasone 0.05% 1 SPRAY NASAL.SRY 2 SPRAY NASAL (05:44)
[2019-09-02] MEDS: Aspirin 81 MG TAB.CHEW PO (08:31)
[2019-09-02] MEDS: Vitamin B Comp W-C Capsule 1 CAP PO (08:31)
[2019-09-02 09:10] VITALS: RESP 18; O2SAT 93
[2019-09-02] MEDS: Magnesium Oxide 400 MG Tablet 200 MG PO (09:19)
[2019-09-02] MEDS: Acetaminophen 500 MG Tablet 1000 MG PO ×2 (09:21→20:25)
[2019-09-02] MEDS: Multivitamins,Therapeutic Tablet 1 TABLET PO (11:22)
--- NOTE | 2019-09-02 12:52 | MDS.RN ---
Information for the mds was obtained from review of the clinical record, interview of resident, staff, and direct observation of resident's care.
--- NOTE | 2019-09-02 14:16 | CASEMGMT ---
Social Work IDT met with patient, spouse and daughter for care plan meeting. Discussed patient's progress in therapy. Pt is set up for all ADLS, supervised walking 300 ft with FWW, 10 steps CBA, adlib in room. Therapy will continue to work on strength, balance and trail the cane. Pt is on IV ATB Q8 until 10/02, planned DC date 10/03. Explained insurance update 09/02 and continued stay is not guaranteed. Explained and provided [employer] Care Plan to pt and family. Will continue to follow. Shakila Souza, LABORER CAR BARN [employer]AG CAR RACER
[2019-09-02 15:44] VITALS: BP 111/74; PULSE 81; RESP 18; TEMP 36.7; O2SAT 93
[2019-09-02] MEDS: Levothyroxine 88 MCG Tablet PO (20:26)
[2019-09-02] MEDS: Gabapentin 100 MG Capsule PO (20:26)
[2019-09-02] MEDS: Pravastatin 40 MG Tablet PO (20:26)
[2019-09-02] MEDS: Amitriptyline 25 MG Tablet 50 MG PO (20:26)
[2019-09-03] MEDS: 0.9% Saline Lock 10 ML Syringe IV ×3 (05:39→22:44)
[2019-09-03] MEDS: BRIMONIDINE 0.15% 5 ML Bottle 1 DRP EACH EYE ×2 (05:39→17:20)
[2019-09-03] MEDS: Menthol/Lanolin/Calamine/Znox 113 GM Tube 1 APPLIC TOPICAL ×2 (05:40→22:48)
[2019-09-03] MEDS: Fluticasone 0.05% 1 SPRAY NASAL.SRY 2 SPRAY NASAL (05:40)
[2019-09-03] MEDS: APIXABAN 2.5 MG TABLET PO ×2 (05:41→17:19)
[2019-09-03] MEDS: Carvedilol 6.25 MG Tablet PO ×2 (05:41→17:19)
[2019-09-03] MEDS: Furosemide 40 MG Tablet PO ×2 (05:41→17:19)
[2019-09-03] MEDS: Citalopram 20 MG Tablet PO (05:41)
[2019-09-03] MEDS: Amiodarone 200 MG Tablet PO (05:41)
[2019-09-03] MEDS: Aspirin 81 MG TAB.CHEW PO (08:38)
[2019-09-03] MEDS: Vitamin B Comp W-C Capsule 1 CAP PO (08:38)
[2019-09-03] MEDS: Multivitamins,Therapeutic Tablet 1 TABLET PO (11:47)
[2019-09-03 12:11] VITALS: PULSE 96; RESP 18; O2SAT 97
[2019-09-03 16:00] VITALS: BP 121/70; PULSE 81; RESP 18; TEMP 36.4; O2SAT 94
[2019-09-03] MEDS: Acetaminophen 500 MG Tablet 1000 MG PO (17:15)
[2019-09-03] MEDS: SACUBITRIL/VALSARTAN 24/26 MG TABLET 1 EACH PO (17:24)
--- NOTE | 2019-09-03 17:41 | NURSING ---
dr thomas spoke with pt, daughter and regarding pt weights, pt normally 170 lbs, pt hanging at 176 lbs and feels like she is breathing harder than normal. Dr thomas ordering entresto with Dr Huang permission.
[2019-09-03] MEDS: Gabapentin 100 MG Capsule PO (22:46)
[2019-09-03] MEDS: Amitriptyline 25 MG Tablet 50 MG PO (22:46)
[2019-09-03] MEDS: Levothyroxine 88 MCG Tablet PO (22:47)
[2019-09-03] MEDS: Pravastatin 40 MG Tablet PO (22:47)
[2019-09-04 06:10] VITALS: BP 117/68; PULSE 67
[2019-09-04] MEDS: 0.9% Saline Lock 10 ML Syringe IV ×4 (06:12→23:05)
[2019-09-04] MEDS: BRIMONIDINE 0.15% 5 ML Bottle 1 DRP EACH EYE ×2 (06:20→17:45)
[2019-09-04] MEDS: Fluticasone 0.05% 1 SPRAY NASAL.SRY 2 SPRAY NASAL (06:20)
[2019-09-04] MEDS: Amiodarone 200 MG Tablet PO (06:21)
[2019-09-04] MEDS: Citalopram 20 MG Tablet PO (06:21)
[2019-09-04] MEDS: APIXABAN 2.5 MG TABLET PO ×2 (06:21→17:45)
[2019-09-04] MEDS: SACUBITRIL/VALSARTAN 24/26 MG TABLET 1 EACH PO ×2 (06:21→17:47)
[2019-09-04] MEDS: Furosemide 40 MG Tablet PO ×2 (06:21→17:46)
[2019-09-04] MEDS: Carvedilol 6.25 MG Tablet PO ×2 (06:21→17:46)
[2019-09-04] MEDS: Menthol/Lanolin/Calamine/Znox 113 GM Tube 1 APPLIC TOPICAL ×2 (06:24→21:25)
[2019-09-04] MEDS: Magnesium Oxide 400 MG Tablet 200 MG PO (08:49)
[2019-09-04] MEDS: Aspirin 81 MG TAB.CHEW PO (08:49)
[2019-09-04] MEDS: Vitamin B Comp W-C Capsule 1 CAP PO (08:50)
[2019-09-04] MEDS: Acetaminophen 500 MG Tablet 1000 MG PO (10:13)
[2019-09-04] MEDS: Multivitamins,Therapeutic Tablet 1 TABLET PO (11:58)
[2019-09-04 15:16] VITALS: BP 92/56; PULSE 66; RESP 18; TEMP 36.6; O2SAT 94
[2019-09-04 21:31] VITALS: BP 96/54
[2019-09-04] MEDS: Pravastatin 40 MG Tablet PO (21:39)
[2019-09-04] MEDS: Gabapentin 100 MG Capsule PO (21:39)
[2019-09-04] MEDS: Amitriptyline 25 MG Tablet 50 MG PO (21:39)
[2019-09-04] MEDS: Levothyroxine 88 MCG Tablet PO (21:45)
[2019-09-05 06:06] VITALS: BP 108/64; PULSE 83
[2019-09-05] MEDS: 0.9% Saline Lock 10 ML Syringe IV ×5 (06:07→22:50)
[2019-09-05] MEDS: Fluticasone 0.05% 1 SPRAY NASAL.SRY 2 SPRAY NASAL (06:17)
[2019-09-05] MEDS: BRIMONIDINE 0.15% 5 ML Bottle 1 DRP EACH EYE ×2 (06:17→17:40)
[2019-09-05] MEDS: Amiodarone 200 MG Tablet PO (06:18)
[2019-09-05] MEDS: APIXABAN 2.5 MG TABLET PO ×2 (06:18→17:41)
[2019-09-05] MEDS: Citalopram 20 MG Tablet PO (06:18)
[2019-09-05] MEDS: Menthol/Lanolin/Calamine/Znox 113 GM Tube 1 APPLIC TOPICAL ×2 (06:19→21:48)
[2019-09-05 07:50] LABS: Anion Gap 4 (5-15); BUN 28 mg/dL (7-18); BUN/Creat Ratio 22.2 RATIO (10-20); Calcium,Total 9.1 mg/dL (8.5-10.1); Chloride 102 mmol/L (98-107); Creatinine, Serum 1.26 mg/dL (0.55-1.02); EST Glomerular Filtration Rate 44 mL/min (>60); Est Glom Filt Rate - Afr Amer 53 mL/min (>60); Estimated Creatinine Clearance 40.43 ml/min; Glucose 118 mg/dL (74-106); Potassium 3.3 mmol/L (3.5-5.1); Sodium Level 142 mmol/L (136-145)
[2019-09-05] MEDS: Vitamin B Comp W-C Capsule 1 CAP PO (09:37)
[2019-09-05] MEDS: Aspirin 81 MG TAB.CHEW PO (09:37)
[2019-09-05] MEDS: Multivitamins,Therapeutic Tablet 1 TABLET PO (09:38)
--- NOTE | 2019-09-05 10:24 | NURSING ---
Notified Dr. Lan of patients current BP of 94/64, heart rate 76. Also, pt's current weight is 172.8 and weight has decreased from 181 on 08/26/19. Requested parameters for Coreg and Entresto. Received order to stop lasix and given Coreg and Entresto. Dr. Lan stated he does not want parameters for Coreg and Entresto. Order repeated back.
[2019-09-05 10:39] VITALS: BP 94/64; PULSE 76; RESP 18; O2SAT 95
[2019-09-05] MEDS: Carvedilol 6.25 MG Tablet PO ×2 (12:13→17:41)
[2019-09-05 15:41] VITALS: BP 97/55; PULSE 78; RESP 18; TEMP 36.9; O2SAT 92
[2019-09-05] MEDS: SACUBITRIL/VALSARTAN 24/26 MG TABLET 1 EACH PO (17:42)
[2019-09-05 21:42] VITALS: BP 107/62; PULSE 78
[2019-09-05] MEDS: Pravastatin 40 MG Tablet PO (21:50)
[2019-09-05] MEDS: Amitriptyline 25 MG Tablet 50 MG PO (21:50)
[2019-09-05] MEDS: Gabapentin 100 MG Capsule PO (21:50)
[2019-09-05] MEDS: Levothyroxine 88 MCG Tablet PO (21:54)
[2019-09-06 04:52] VITALS: BP 106/62; PULSE 76
[2019-09-06] MEDS: 0.9% Saline Lock 10 ML Syringe IV ×6 (05:00→21:51)
[2019-09-06] MEDS: Fluticasone 0.05% 1 SPRAY NASAL.SRY 2 SPRAY NASAL (05:49)
[2019-09-06] MEDS: BRIMONIDINE 0.15% 5 ML Bottle 1 DRP EACH EYE ×2 (05:49→17:05)
[2019-09-06] MEDS: Menthol/Lanolin/Calamine/Znox 113 GM Tube 1 APPLIC TOPICAL ×2 (05:50→20:36)
[2019-09-06] MEDS: APIXABAN 2.5 MG TABLET PO ×2 (05:51→17:05)
[2019-09-06] MEDS: SACUBITRIL/VALSARTAN 24/26 MG TABLET 1 EACH PO ×2 (05:51→17:05)
[2019-09-06] MEDS: Citalopram 20 MG Tablet PO (05:51)
[2019-09-06] MEDS: Carvedilol 6.25 MG Tablet PO ×2 (05:51→17:05)
[2019-09-06] MEDS: Amiodarone 200 MG Tablet PO (05:52)
[2019-09-06 06:14] LABS: Anion Gap 3 (5-15); BUN 24 mg/dL (7-18); BUN/Creat Ratio 17.8 RATIO (10-20); Calcium,Total 9.1 mg/dL (8.5-10.1); Chloride 110 mmol/L (98-107); Creatinine, Serum 1.35 mg/dL (0.55-1.02); EST Glomerular Filtration Rate 40 mL/min (>60); Est Glom Filt Rate - Afr Amer 49 mL/min (>60); Estimated Creatinine Clearance 37.74 ml/min; Glucose 89 mg/dL (74-106); Potassium 4.8 mmol/L (3.5-5.1); Sodium Level 139 mmol/L (136-145)
[2019-09-06 06:58] VITALS: BP 95/54; PULSE 69
[2019-09-06] MEDS: Magnesium Oxide 400 MG Tablet 200 MG PO (08:31)
[2019-09-06] MEDS: Vitamin B Comp W-C Capsule 1 CAP PO (08:32)
[2019-09-06] MEDS: Aspirin 81 MG TAB.CHEW PO (08:33)
--- NOTE | 2019-09-06 08:33 | NURSING ---
Fluid restriction dc'd this AM
[2019-09-06 08:47] VITALS: BP 95/63; PULSE 64
[2019-09-06] MEDS: Multivitamins,Therapeutic Tablet 1 TABLET PO (12:25)
[2019-09-06 12:28] VITALS: BP 101/66; PULSE 73
[2019-09-06 12:41] VITALS: BP 103/62; PULSE 69
[2019-09-06 16:00] VITALS: BP 104/70; PULSE 73; RESP 18; TEMP 36.8; O2SAT 97
[2019-09-06] MEDS: Amitriptyline 25 MG Tablet 50 MG PO (20:34)
[2019-09-06] MEDS: Gabapentin 100 MG Capsule PO (20:35)
[2019-09-06] MEDS: Levothyroxine 88 MCG Tablet PO (20:35)
[2019-09-06] MEDS: Pravastatin 40 MG Tablet PO (20:35)
[2019-09-06] MEDS: Acetaminophen 500 MG Tablet 1000 MG PO (21:53)
[2019-09-07] MEDS: 0.9% Saline Lock 10 ML Syringe IV ×3 (06:36→20:53)
[2019-09-07] MEDS: Fluticasone 0.05% 1 SPRAY NASAL.SRY 2 SPRAY NASAL (06:40)
[2019-09-07] MEDS: BRIMONIDINE 0.15% 5 ML Bottle 1 DRP EACH EYE ×2 (06:40→17:19)
[2019-09-07] MEDS: Menthol/Lanolin/Calamine/Znox 113 GM Tube 1 APPLIC TOPICAL ×2 (06:40→20:51)
[2019-09-07] MEDS: SACUBITRIL/VALSARTAN 24/26 MG TABLET 1 EACH PO ×2 (06:41→17:19)
[2019-09-07] MEDS: APIXABAN 2.5 MG TABLET PO ×2 (06:41→17:19)
[2019-09-07] MEDS: Amiodarone 200 MG Tablet PO (06:41)
[2019-09-07] MEDS: Citalopram 20 MG Tablet PO (06:41)
[2019-09-07] MEDS: Carvedilol 6.25 MG Tablet PO ×2 (06:41→17:19)
[2019-09-07 06:43] VITALS: BP 114/74; PULSE 78; O2SAT 94
[2019-09-07] MEDS: Aspirin 81 MG TAB.CHEW PO (08:42)
[2019-09-07] MEDS: Vitamin B Comp W-C Capsule 1 CAP PO (08:42)
[2019-09-07] MEDS: Multivitamins,Therapeutic Tablet 1 TABLET PO (11:08)
[2019-09-07] MEDS: Furosemide 40 MG Tablet PO (14:03)
[2019-09-07 15:55] VITALS: BP 104/61; PULSE 52; RESP 20; TEMP 36.9; O2SAT 92
--- NOTE | 2019-09-07 16:27 | CHAPLAIN ---
Type of Pastoral Visit ___ Initial Visit _x__ Follow-up Visit ___ On-call Visit ___ General Patient Visit ___ Spiritual Assessment ___ Family Conference ___ Bereavement ___ Rapid Response ___ Code Blue ___ Other (describe below) Pastoral Care Referral From _x__ Patient ___ Family ___ Nurse ___ Physician ___ Lumber Driver ___ Selling Specialist ___ Other (describe below) Sacrament/Intervention _x__ Active listening ___ Anointing ___ Christian ___ Bereavement ___ Communion ___ Shelly exploration ___ ___ Life review ___ Prayer ___ Reconciliation ___ Sacrament of Sick ___ Supportive presence ___ Wedding ___ Other (describe below) Pastoral Comments
[2019-09-07 17:25] VITALS: PULSE 64; RESP 18; O2SAT 99
[2019-09-07] MEDS: Levothyroxine 88 MCG Tablet PO (20:48)
[2019-09-07] MEDS: Amitriptyline 25 MG Tablet 50 MG PO (20:48)
[2019-09-07] MEDS: Gabapentin 100 MG Capsule PO (20:49)
[2019-09-07] MEDS: Pravastatin 40 MG Tablet PO (20:50)
[2019-09-08] MEDS: Menthol/Lanolin/Calamine/Znox 113 GM Tube 1 APPLIC TOPICAL (05:11)
[2019-09-08] MEDS: SACUBITRIL/VALSARTAN 24/26 MG TABLET 1 EACH PO ×2 (05:19→17:07)
[2019-09-08] MEDS: APIXABAN 2.5 MG TABLET PO ×2 (05:19→17:07)
[2019-09-08] MEDS: Furosemide 40 MG Tablet PO ×2 (05:19→17:07)
[2019-09-08] MEDS: Citalopram 20 MG Tablet PO (05:19)
[2019-09-08] MEDS: BRIMONIDINE 0.15% 5 ML Bottle 1 DRP EACH EYE ×2 (05:19→17:07)
[2019-09-08] MEDS: Carvedilol 6.25 MG Tablet PO ×2 (05:19→17:07)
[2019-09-08] MEDS: Fluticasone 0.05% 1 SPRAY NASAL.SRY 2 SPRAY NASAL (05:20)
[2019-09-08 05:21] VITALS: BP 118/73; PULSE 80
[2019-09-08 05:31] LABS: Absolute Lymphocyte Count 1.23 X10^3/uL (0.83-4.51); Absolute Neutrophil Count 5.4 X10^3/uL (2.0-7.7); Basophil# 0.07 X10^3/uL; Basophil% 0.8 % (0-1); Eosinophil# 0.62 X10^3/uL; Eosinophils% 7.4 % (0-5); Hematocrit 33.6 % (37-47); Hemoglobin 10.3 g/dL (12.0-15.0); Lymphocyte # 1.23 X10^3/ul (4.0); Lymphocyte % 14.8 % (19-41); Mean Corp Hgb Conc 30.7 g/dL (32-36); Mean Corpuscular Hgb 29.1 pg (27.0-32.0); Mean Corpuscular Volume 94.9 fL (81-99); Monocyte# 0.95 X10^3/uL; Monocyte% 11.4 % (0-10); NRBC Flagged by Analyzer 0 % (0-5); Neutrophil # 5.42 X10^3/uL (2.7-7.7); Neutrophil % 65.1 % (47-70); Platelet Count 207 K/mm3 (150-450); RBC Distribution Width CV 18.5 % (11.6-14.6); RBC Distribution Width SD 64.5 fl (35.1-43.9); Red Blood Count 3.54 M/mm3 (4.2-5.4); White Blood Count 8.3 K/mm3 (4.4-11.0)
[2019-09-08] MEDS: 0.9% Saline Lock 10 ML Syringe IV ×2 (05:41→14:32)
[2019-09-08 05:45] LABS: Anion Gap 5 (5-15); BUN 22 mg/dL (7-18); BUN/Creat Ratio 17.2 RATIO (10-20); Calcium,Total 8.8 mg/dL (8.5-10.1); Chloride 106 mmol/L (98-107); Creatinine, Serum 1.28 mg/dL (0.55-1.02); EST Glomerular Filtration Rate 43 mL/min (>60); Est Glom Filt Rate - Afr Amer 52 mL/min (>60); Glucose 84 mg/dL (74-106); Potassium 4.4 mmol/L (3.5-5.1); Sodium Level 137 mmol/L (136-145)
[2019-09-08] MEDS: Magnesium Oxide 400 MG Tablet 200 MG PO (08:58)
[2019-09-08] MEDS: Multivitamins,Therapeutic Tablet 1 TABLET PO (08:59)
[2019-09-08] MEDS: Vitamin B Comp W-C Capsule 1 CAP PO (08:59)
[2019-09-08] MEDS: Aspirin 81 MG TAB.CHEW PO (08:59)
[2019-09-08 16:00] VITALS: BP 99/59; PULSE 87; RESP 20; TEMP 36.5; O2SAT 92
[2019-09-08] MEDS: Gabapentin 100 MG Capsule PO (20:36)
[2019-09-08] MEDS: Amitriptyline 25 MG Tablet 50 MG PO (20:36)
[2019-09-08] MEDS: Levothyroxine 88 MCG Tablet PO (20:37)
[2019-09-08] MEDS: Pravastatin 40 MG Tablet PO (20:37)
[2019-09-08] MEDS: Acetaminophen 500 MG Tablet 1000 MG PO (20:42)
[2019-09-08 22:32] VITALS: RESP 18
--- NOTE | 2019-09-08 23:35 | NURSING ---
pt refused cpap tonight
[2019-09-09] MEDS: SACUBITRIL/VALSARTAN 24/26 MG TABLET 1 EACH PO ×2 (06:41→17:48)
[2019-09-09] MEDS: Citalopram 20 MG Tablet PO (06:41)
[2019-09-09] MEDS: Carvedilol 6.25 MG Tablet PO ×2 (06:41→17:48)
[2019-09-09] MEDS: BRIMONIDINE 0.15% 5 ML Bottle 1 DRP EACH EYE ×2 (06:41→17:49)
[2019-09-09] MEDS: APIXABAN 2.5 MG TABLET PO ×2 (06:41→17:48)
[2019-09-09] MEDS: Menthol/Lanolin/Calamine/Znox 113 GM Tube 1 APPLIC TOPICAL ×2 (06:41→21:03)
[2019-09-09] MEDS: Furosemide 40 MG Tablet PO ×2 (06:41→17:48)
[2019-09-09] MEDS: Fluticasone 0.05% 1 SPRAY NASAL.SRY 2 SPRAY NASAL (06:42)
[2019-09-09] MEDS: Aspirin 81 MG TAB.CHEW PO (09:08)
[2019-09-09] MEDS: Vitamin B Comp W-C Capsule 1 CAP PO (09:08)
[2019-09-09] MEDS: Multivitamins,Therapeutic Tablet 1 TABLET PO (13:26)
[2019-09-09] MEDS: 0.9% Saline Lock 10 ML Syringe IV ×2 (13:28→21:00)
[2019-09-09 15:47] VITALS: BP 110/67; PULSE 74; RESP 16; TEMP 36.4; O2SAT 100
[2019-09-09] MEDS: Levothyroxine 88 MCG Tablet PO (20:49)
[2019-09-09] MEDS: Amitriptyline 25 MG Tablet 50 MG PO (20:49)
[2019-09-09] MEDS: Gabapentin 100 MG Capsule PO (20:49)
[2019-09-09] MEDS: Pravastatin 40 MG Tablet PO (20:49)
[2019-09-10] MEDS: Acetaminophen 500 MG Tablet 1000 MG PO (05:03)
[2019-09-10] MEDS: BRIMONIDINE 0.15% 5 ML Bottle 1 DRP EACH EYE ×2 (05:04→17:20)
[2019-09-10] MEDS: Fluticasone 0.05% 1 SPRAY NASAL.SRY 2 SPRAY NASAL (05:04)
[2019-09-10] MEDS: Menthol/Lanolin/Calamine/Znox 113 GM Tube 1 APPLIC TOPICAL ×2 (05:05→20:56)
[2019-09-10] MEDS: 0.9% Saline Lock 10 ML Syringe IV ×2 (05:05→14:18)
[2019-09-10 05:12] VITALS: BP 103/65; PULSE 91; TEMP 36.8
[2019-09-10] MEDS: SACUBITRIL/VALSARTAN 24/26 MG TABLET 1 EACH PO ×2 (05:13→17:21)
[2019-09-10] MEDS: Carvedilol 6.25 MG Tablet PO ×2 (05:13→17:21)
[2019-09-10] MEDS: Citalopram 20 MG Tablet PO (05:13)
[2019-09-10] MEDS: APIXABAN 2.5 MG TABLET PO ×2 (05:13→17:21)
[2019-09-10] MEDS: Furosemide 40 MG Tablet PO ×2 (05:13→17:21)
[2019-09-10 05:34] LABS: Anion Gap 3 (5-15); BUN 24 mg/dL (7-18); BUN/Creat Ratio 19.2 RATIO (10-20); Calcium,Total 8.7 mg/dL (8.5-10.1); Chloride 103 mmol/L (98-107); Creatinine, Serum 1.25 mg/dL (0.55-1.02); EST Glomerular Filtration Rate 44 mL/min (>60); Est Glom Filt Rate - Afr Amer 53 mL/min (>60); Estimated Creatinine Clearance 40.76 ml/min; Glucose 92 mg/dL (74-106); Potassium 4.4 mmol/L (3.5-5.1); Sodium Level 136 mmol/L (136-145)
--- NOTE | 2019-09-10 06:40 | NURSING ---
Patient c/o head feeling stuffy. Patient's cheeks noted to be flushed. Patient afebrile at this time. Patient feels like she is coming down with a cold. BP 103/65 P 91 T [address] Will update [address]. Lan
[2019-09-10 08:28] LABS: Absolute Neutrophil Count 5.9 X10^3/uL (2.0-7.7); Basophil# 0.07 X10^3/uL; Basophil% 0.8 % (0-1); Eosinophil# 0.86 X10^3/uL; Eosinophils% 9.5 % (0-5); Hematocrit 34.3 % (37-47); Hemoglobin 10.5 g/dL (12.0-15.0); Lymphocyte % 12.2 % (19-41); Mean Corp Hgb Conc 30.6 g/dL (32-36); Mean Corpuscular Hgb 28.9 pg (27.0-32.0); Mean Corpuscular Volume 94.5 fL (81-99); Mean Platelet Vol. 9.6 fl (6.2-12.0); Monocyte% 11.1 % (0-10); NRBC Flagged by Analyzer 0 % (0-5); Neutrophil # 5.94 X10^3/uL (2.7-7.7); Platelet Count 242 K/mm3 (150-450); RBC Distribution Width CV 18.2 % (11.6-14.6); RBC Distribution Width SD 62.4 fl (35.1-43.9); Red Blood Count 3.63 M/mm3 (4.2-5.4)
[2019-09-10] MEDS: Vitamin B Comp W-C Capsule 1 CAP PO (08:31)
[2019-09-10] MEDS: Aspirin 81 MG TAB.CHEW PO (08:31)
[2019-09-10] MEDS: Magnesium Oxide 400 MG Tablet 200 MG PO (08:32)
[2019-09-10] MEDS: Multivitamins,Therapeutic Tablet 1 TABLET PO (11:24)
[2019-09-10 15:38] VITALS: BP 109/48; PULSE 77; RESP 18; TEMP 36.3; O2SAT 97
[2019-09-10] MEDS: Amitriptyline 25 MG Tablet 50 MG PO (20:53)
[2019-09-10] MEDS: Levothyroxine 88 MCG Tablet PO (20:54)
[2019-09-10] MEDS: Gabapentin 100 MG Capsule PO (20:55)
[2019-09-10] MEDS: Pravastatin 40 MG Tablet PO (20:55)
[2019-09-11] MEDS: Fluticasone 0.05% 1 SPRAY NASAL.SRY 2 SPRAY NASAL (05:17)
[2019-09-11] MEDS: BRIMONIDINE 0.15% 5 ML Bottle 1 DRP EACH EYE ×2 (05:17→17:46)
[2019-09-11] MEDS: SACUBITRIL/VALSARTAN 24/26 MG TABLET 1 EACH PO ×2 (05:17→17:45)
[2019-09-11] MEDS: Furosemide 40 MG Tablet PO (05:17)
[2019-09-11] MEDS: Carvedilol 6.25 MG Tablet PO ×2 (05:18→17:45)
[2019-09-11] MEDS: Citalopram 20 MG Tablet PO (05:18)
[2019-09-11] MEDS: APIXABAN 2.5 MG TABLET PO ×2 (05:18→17:45)
[2019-09-11] MEDS: Menthol/Lanolin/Calamine/Znox 113 GM Tube 1 APPLIC TOPICAL (05:18)
[2019-09-11 05:19] VITALS: BP 113/54; RESP 93
[2019-09-11] MEDS: 0.9% Saline Lock 10 ML Syringe IV ×3 (07:39→20:45)
--- NOTE | 2019-09-11 07:49 | NURSING ---
this nurse into room to stop infusion and seen pt had blood on right side of mouth. asked pt what happened pt stated she wasnt sure but thought her tooth was bleeding last night. this nurse looked inside of pt mouth and seen dried blood caked in upper right side. cleaned inside pt mouth and seen that area of tooth is were the blood was coming from. had pt get up and rinse and clean mouth out. reported to sebastián hampton
[2019-09-11] MEDS: Aspirin 81 MG TAB.CHEW PO (08:52)
[2019-09-11] MEDS: Vitamin B Comp W-C Capsule 1 CAP PO (08:53)
[2019-09-11] MEDS: Multivitamins,Therapeutic Tablet 1 TABLET PO (11:48)
--- NOTE | 2019-09-11 13:39 | NURSING ---
pt assisted on bike earlier in therapy room with supervision by therapist.
[2019-09-11 15:29] VITALS: BP 98/65; PULSE 109; RESP 18; TEMP 36.3; O2SAT 92
--- NOTE | 2019-09-11 15:41 | NURSING ---
Addendum entered by Sasha Gil 09/12/19 16:44: pt continues to be tachy but asymptomatic, BP normal. Pt been up ambulating in halls with cane and at side. visting with other pts. Dr Lan updated aware. no new orders at this time. Pt to notify staff if she begins having symptoms malaise, SOB, edema, cough, etc. pt verbalized understanding. Addendum entered by Sasha Gil 09/11/19 15:42: asymptomatic Original Note: Dr Lan updated, pt tachy but reg 109-119. new order to decrease lasix to daily.
[2019-09-11 17:43] VITALS: BP 116/69; PULSE 116; O2SAT 94
[2019-09-11] MEDS: Pravastatin 40 MG Tablet PO (20:51)
[2019-09-11] MEDS: Levothyroxine 88 MCG Tablet PO (20:51)
[2019-09-11] MEDS: Gabapentin 100 MG Capsule PO (20:52)
[2019-09-11] MEDS: Amitriptyline 25 MG Tablet 50 MG PO (20:52)
[2019-09-11 21:00] VITALS: BP 99/64; PULSE 107
[2019-09-11 21:01] VITALS: PULSE 107
[2019-09-12] MEDS: Citalopram 20 MG Tablet PO (05:22)
[2019-09-12] MEDS: Furosemide 40 MG Tablet PO (05:22)
[2019-09-12] MEDS: SACUBITRIL/VALSARTAN 24/26 MG TABLET 1 EACH PO ×2 (05:22→16:37)
[2019-09-12] MEDS: Carvedilol 6.25 MG Tablet PO ×2 (05:22→16:37)
[2019-09-12] MEDS: APIXABAN 2.5 MG TABLET PO ×2 (05:22→16:37)
[2019-09-12] MEDS: Fluticasone 0.05% 1 SPRAY NASAL.SRY 2 SPRAY NASAL (05:22)
[2019-09-12] MEDS: BRIMONIDINE 0.15% 5 ML Bottle 1 DRP EACH EYE ×2 (05:23→16:36)
[2019-09-12] MEDS: Amiodarone 200 MG Tablet PO (06:08)
[2019-09-12] MEDS: Magnesium Oxide 400 MG Tablet 200 MG PO (07:55)
[2019-09-12] MEDS: Aspirin 81 MG TAB.CHEW PO (07:56)
[2019-09-12] MEDS: Vitamin B Comp W-C Capsule 1 CAP PO (07:56)
[2019-09-12 09:12] VITALS: PULSE 103
[2019-09-12 09:30] VITALS: PULSE 104; RESP 18; O2SAT 96
[2019-09-12] MEDS: Multivitamins,Therapeutic Tablet 1 TABLET PO (11:20)
[2019-09-12] MEDS: 0.9% Saline Lock 10 ML Syringe IV ×3 (13:31→20:59)
[2019-09-12 13:38] VITALS: BP 95/61; PULSE 110; RESP 18; TEMP 36.8; O2SAT 97
[2019-09-12] MEDS: Acetaminophen 500 MG Tablet 1000 MG PO (16:37)
[2019-09-12 16:41] VITALS: BP 112/40; PULSE 115
[2019-09-12] MEDS: Gabapentin 100 MG Capsule PO (20:53)
[2019-09-12] MEDS: Levothyroxine 88 MCG Tablet PO (20:53)
[2019-09-12] MEDS: Amitriptyline 25 MG Tablet 50 MG PO (20:54)
[2019-09-12] MEDS: Pravastatin 40 MG Tablet PO (20:54)
[2019-09-13] MEDS: BRIMONIDINE 0.15% 5 ML Bottle 1 DRP EACH EYE ×2 (05:44→17:36)
[2019-09-13] MEDS: Fluticasone 0.05% 1 SPRAY NASAL.SRY 2 SPRAY NASAL (05:44)
[2019-09-13] MEDS: Citalopram 20 MG Tablet PO (05:45)
[2019-09-13] MEDS: Furosemide 40 MG Tablet PO (05:45)
[2019-09-13] MEDS: APIXABAN 2.5 MG TABLET PO ×2 (05:45→17:37)
[2019-09-13] MEDS: Carvedilol 6.25 MG Tablet PO ×2 (05:45→17:37)
[2019-09-13] MEDS: SACUBITRIL/VALSARTAN 24/26 MG TABLET 1 EACH PO ×2 (05:45→17:37)
[2019-09-13] MEDS: Amiodarone 200 MG Tablet PO (05:45)
[2019-09-13 06:07] VITALS: BP 108/77; PULSE 118
[2019-09-13 06:26] LABS: Anion Gap 4 (5-15); BUN 33 mg/dL (7-18); BUN/Creat Ratio 22.9 RATIO (10-20); Calcium,Total 8.9 mg/dL (8.5-10.1); Chloride 105 mmol/L (98-107); Creatinine, Serum 1.44 mg/dL (0.55-1.02); EST Glomerular Filtration Rate 38 mL/min (>60); Est Glom Filt Rate - Afr Amer 45 mL/min (>60); Estimated Creatinine Clearance 35.38 ml/min; Glucose 100 mg/dL (74-106); Potassium 4.8 mmol/L (3.5-5.1); Sodium Level 136 mmol/L (136-145)
[2019-09-13] MEDS: Vitamin B Comp W-C Capsule 1 CAP PO (08:16)
[2019-09-13] MEDS: Aspirin 81 MG TAB.CHEW PO (08:16)
[2019-09-13] MEDS: Multivitamins,Therapeutic Tablet 1 TABLET PO (11:10)
[2019-09-13] MEDS: Acetaminophen 500 MG Tablet 1000 MG PO (12:28)
--- NOTE | 2019-09-13 13:30 | PN.ID_ITS ---
Subjective: Feeling ok, no fever, no n/v/d. - Physical Exam Vitals/I&O's: Vital Signs Temp Pulse Resp BP Pulse Ox 98.2 F 118 H 18 108/77 97 09/12/19 13:38 09/13/19 06:07 09/12/19 13:38 09/13/19 06:07 09/12/19 13:38 Oxygen Delivery Method Room Air Weight: 79.095 kg Body Mass Index (BMI) 25.5 Finger Stick Blood Glucose 146 Intake and Output for Last 24 Hours 09/11/19 09/12/19 09/13/19 23:59 23:59 23:59 Intake Total 1173.33 / 1173.33 1090.00 / 1090.00 280 / 280 Output Total 600 / 600 Balance 573.33 / 573.33 1090.00 / 1090.00 280 / 280 General: Alert, Cooperative, No apparent distress Lungs: Clear to auscultation, Normal air movement Cardiovascular: Regular rate, Regular Rhythm Abdomen: Soft, Non Tender, Non-Distended Skin: No rashes Microbiology Past 72 Hours 09/10/19 11:12 Mucosa - Nasopharyngeal Respiratory Panel (PCR) - Final Laboratory Results 09/13/19 05:49: Sodium 136, Potassium 4.8, Chloride 105, Carbon Dioxide 27.0, Anion Gap 4 L, BUN 33 H, Creatinine 1.44 H, Estim Creat Clear Calc 35.38, Est GFR (MDRD) Af Amer 45 L, Est GFR (MDRD) Non-Af 38 L, BUN/Creatinine Ratio 22.9 H , Glucose 100, Calcium 8.9 Current Medications Acetaminophen (Tylenol) 1,000 mg PO Q6H PRN PRN PRN Reason: Pain Score 1-10/10 Last Admin: 09/13/19 12:28 Dose: 1,000 mg Documented by: Albuterol Sulfate (Ventolin Hfa (Sp)) 2 puff INHALATION BID PRN PRN PRN Reason: SOB &/OR WHEEZING Amiodarone HCl (Cordarone) 200 mg PO DAILY [facility] Last Admin: 09/13/19 05:45 Dose: 200 mg Documented by: Amitriptyline HCl (Elavil) 50 mg PO QHS [facility] Last Admin: 09/12/19 20:54 Dose: 50 mg Documented by: Apixaban (Eliquis) 2.5 mg PO BID [facility] Last Admin: 09/13/19 05:45 Dose: 2.5 mg Documented by: Aspirin (Aspirin, Baby) 81 mg PO DAILY@0800 [facility] Last Admin: 09/13/19 08:16 Dose: 81 mg Documented by: Benzonatate (Tessalon Perle) 100 mg PO TID PRN PRN Reason: COUGH Last Admin: 08/26/19 09:05 Dose: 100 mg Documented by: Brimonidine Tartrate (Alphagan P 0.15%) 1 drop EACH EYE BID [facility] Last Admin: 09/13/19 05:44 Dose: 1 drop Documented by: Budesonide (Pulmicort Aerosol) 0.5 mg INHALATION BID PRN PRN Reason: WHEEZING Carvedilol (Coreg) 6.25 mg PO BID [facility] Last Admin: 09/13/19 05:45 Dose: 6.25 mg Documented by: Citalopram Hydrobromide (Celexa) 20 mg PO DAILY [facility] Last Admin: 09/13/19 05:45 Dose: 20 mg Documented by: Fluticasone Propionate (Flonase Nasal [place]) 2 spray NASAL DAILY [facility] Last Admin: 09/13/19 05:44 Dose: 2 spray Documented by: Furosemide (Lasix) 40 mg PO DAILY [facility] Last Admin: 09/13/19 05:45 Dose: 40 mg Documented by: Gabapentin (Neurontin) 100 mg PO QHS [facility] Last Admin: 09/12/19 20:53 Dose: 100 mg Documented by: Sodium Chloride () 250 mls @ 15 mls/hr IV .[id number] PRN PRN Reason: Saline Flush Last Infusion: 09/12/19 21:55 Dose: 0 mls/hr Documented by: Ampicillin Sodium 2 gm/ Sodium (Chloride) 100 mls @ 200 mls/hr IV Q8 [facility] Stop: 10/02/19 22:01 Last Infusion: 09/13/19 08:59 Dose: Infused Documented by: Levothyroxine Sodium (Synthroid) 88 mcg PO QHS [facility] Last Admin: 09/12/19 20:53 Dose: 88 mcg Documented by: Magnesium Oxide (Mag-Ox 400) 200 mg PO QODAY [facility] Last Admin: 09/12/19 07:55 Dose: 200 mg Documented by: Multivitamins (Allbee W/C Caplet, Thera B Comp/C) 1 capsule PO DAILY@0800 [facility] Last Admin: 09/13/19 08:16 Dose: 1 capsule Documented by: Multivitamins (Multivitamin) 1 tablet PO DAILY@1200 [facility] Last Admin: 09/13/19 11:10 Dose: 1 tablet Documented by: Polyethylene Glycol (Miralax) 17 gm PO QHS PRN PRN Reason: Constipation Potassium Chloride (K-Dur) 20 meq PO BIDCM [facility] Last Admin: 09/13/19 08:16 Dose: 20 meq Documented by: Pravastatin Sodium (Pravachol) 40 mg PO QHS [facility] Last Admin: 09/12/19 20:54 Dose: 40 mg Documented by: Sacubitril/Valsartan (Entresto 24 Mg-26 Mg Tablet) 1 each PO BID [facility] Stop: 09/17/19 18:01 Last Admin: 09/13/19 05:45 Dose: 1 each Documented by: Sacubitril/Valsartan (Entresto 49 Mg-51 Mg Tablet) 1 each PO BID [facility] Stop: 10/02/19 18:01 Sacubitril/Valsartan (Entresto 97 Mg-103 Mg Tablet) 1 each PO BID [facility] Sodium Chloride () 10 - 40 ml IV UD PRN PRN Reason: SALINE FLUSH Last Admin: 09/12/19 20:59 Dose: 40 ml Documented by: Medical Necessity - Tobacco Use Smoking Status: Never smoker Tobacco Use: Non-smoker Route of nutrition/ use of supplements: [] Nutritional Intake: [] IV Site: [] Andrews Catheter: [] - Assessment/Plan Antibiotics: [] Assessment/Plan: [] Strep mitis bioprosthetic mitral valve endocarditis - Possible oral source with recent dental cleaning, but she reports compliance with abx prophylaxis. Strep less than 0.06 SUDARSHAN to PCN, R to ceftriaxone. Will avoid aminoglycoside due to risk of nephrotoxicity, particularly with her recovering SAY. Repeat bcx neg. Plan will be for 6 weeks of iv ampicillin, stop date 10/02/19. Weekly bmp and cbc while on iv abx. Typical recommendation with endocarditis would be for removal/replacement of cardiac devices, but risks may be higher than the benefits for her given her comorbidities. May need to be on po abx indefinitely for suppression after completing iv course. Will follow
[2019-09-13] MEDS: 0.9% Saline Lock 10 ML Syringe IV ×2 (13:46→21:56)
[2019-09-13 14:15] VITALS: BP 92/64; PULSE 108; RESP 18; TEMP 36.7; O2SAT 91
[2019-09-13] MEDS: hydrOXYzine PAM 25 MG Capsule PO (21:54)
[2019-09-13] MEDS: Pravastatin 40 MG Tablet PO (21:55)
[2019-09-13] MEDS: Amitriptyline 25 MG Tablet 50 MG PO (21:55)
[2019-09-13] MEDS: Gabapentin 100 MG Capsule PO (21:55)
[2019-09-13] MEDS: Levothyroxine 88 MCG Tablet PO (21:55)
[2019-09-14 05:50] VITALS: BP 103/70; PULSE 115; O2SAT 93
[2019-09-14] MEDS: BRIMONIDINE 0.15% 5 ML Bottle 1 DRP EACH EYE ×2 (05:53→17:47)
[2019-09-14] MEDS: Fluticasone 0.05% 1 SPRAY NASAL.SRY 2 SPRAY NASAL (05:53)
[2019-09-14] MEDS: Furosemide 40 MG Tablet PO ×3 (05:55→17:48)
[2019-09-14] MEDS: Amiodarone 200 MG Tablet PO (05:55)
[2019-09-14] MEDS: Carvedilol 6.25 MG Tablet PO ×2 (05:55→17:48)
[2019-09-14] MEDS: SACUBITRIL/VALSARTAN 24/26 MG TABLET 1 EACH PO ×2 (05:55→17:48)
[2019-09-14] MEDS: APIXABAN 2.5 MG TABLET PO ×2 (05:55→17:48)
[2019-09-14] MEDS: Citalopram 20 MG Tablet PO (05:55)
[2019-09-14] MEDS: Acetaminophen 500 MG Tablet 1000 MG PO ×2 (05:58→22:10)
[2019-09-14] MEDS: 0.9% Saline Lock 10 ML Syringe IV ×3 (06:00→22:11)
[2019-09-14] MEDS: Aspirin 81 MG TAB.CHEW PO (08:56)
[2019-09-14] MEDS: Vitamin B Comp W-C Capsule 1 CAP PO (08:56)
[2019-09-14] MEDS: Magnesium Oxide 400 MG Tablet 200 MG PO (08:57)
[2019-09-14] MEDS: Multivitamins,Therapeutic Tablet 1 TABLET PO (11:44)
[2019-09-14 16:00] VITALS: BP 92/50; PULSE 68; RESP 16; TEMP 36.1; O2SAT 98
[2019-09-14 17:58] VITALS: BP 118/67; PULSE 80
[2019-09-14] MEDS: Levothyroxine 88 MCG Tablet PO (19:52)
[2019-09-14] MEDS: Pravastatin 40 MG Tablet PO (19:52)
[2019-09-14] MEDS: Amitriptyline 25 MG Tablet 50 MG PO (19:52)
[2019-09-14] MEDS: Gabapentin 100 MG Capsule PO (19:53)
[2019-09-15] MEDS: 0.9% Saline Lock 10 ML Syringe IV ×4 (05:44→22:00)
[2019-09-15 05:45] VITALS: BP 100/64; PULSE 80
[2019-09-15] MEDS: Amiodarone 200 MG Tablet PO (05:46)
[2019-09-15] MEDS: SACUBITRIL/VALSARTAN 24/26 MG TABLET 1 EACH PO ×2 (05:46→16:36)
[2019-09-15] MEDS: Carvedilol 6.25 MG Tablet PO ×2 (05:46→16:36)
[2019-09-15] MEDS: Citalopram 20 MG Tablet PO (05:46)
[2019-09-15] MEDS: APIXABAN 2.5 MG TABLET PO ×2 (05:46→17:24)
[2019-09-15] MEDS: Fluticasone 0.05% 1 SPRAY NASAL.SRY 2 SPRAY NASAL (05:47)
[2019-09-15] MEDS: BRIMONIDINE 0.15% 5 ML Bottle 1 DRP EACH EYE ×2 (05:47→16:36)
[2019-09-15 05:56] LABS: Absolute Neutrophil Count 4.6 X10^3/uL (2.0-7.7); Basophil# 0.06 X10^3/uL; Basophil% 0.8 % (0-1); Eosinophil# 0.68 X10^3/uL; Eosinophils% 9.2 % (0-5); Hematocrit 33.4 % (37-47); Hemoglobin 10.4 g/dL (12.0-15.0); Lymphocyte % 13.5 % (19-41); Mean Corp Hgb Conc 31.1 g/dL (32-36); Mean Corpuscular Hgb 29.4 pg (27.0-32.0); Mean Corpuscular Volume 94.4 fL (81-99); Monocyte# 1.03 X10^3/uL; Monocyte% 13.9 % (0-10); NRBC Flagged by Analyzer 0 % (0-5); Neutrophil # 4.61 X10^3/uL (2.7-7.7); Neutrophil % 61.9 % (47-70); Platelet Count 206 K/mm3 (150-450); RBC Distribution Width CV 18.3 % (11.6-14.6); RBC Distribution Width SD 62.5 fl (35.1-43.9); Red Blood Count 3.54 M/mm3 (4.2-5.4); White Blood Count 7.4 K/mm3 (4.4-11.0)
[2019-09-15 06:15] LABS: Anion Gap 3 (5-15); BUN 41 mg/dL (7-18); BUN/Creat Ratio 23.8 RATIO (10-20); Calcium,Total 8.8 mg/dL (8.5-10.1); Chloride 105 mmol/L (98-107); Creatinine, Serum 1.72 mg/dL (0.55-1.02); EST Glomerular Filtration Rate 31 mL/min (>60); Est Glom Filt Rate - Afr Amer 37 mL/min (>60); Estimated Creatinine Clearance 29.62 ml/min; Glucose 83 mg/dL (74-106); Potassium 4.7 mmol/L (3.5-5.1); Sodium Level 136 mmol/L (136-145)
[2019-09-15] MEDS: Aspirin 81 MG TAB.CHEW PO (08:18)
[2019-09-15] MEDS: Vitamin B Comp W-C Capsule 1 CAP PO (08:18)
[2019-09-15] MEDS: Multivitamins,Therapeutic Tablet 1 TABLET PO (12:37)
[2019-09-15] MEDS: Furosemide 40 MG Tablet PO (13:31)
[2019-09-15 15:59] VITALS: BP 117/67; PULSE 80; RESP 16; TEMP 36.1; O2SAT 95
[2019-09-15] MEDS: Amitriptyline 25 MG Tablet 50 MG PO (21:59)
[2019-09-15] MEDS: Levothyroxine 88 MCG Tablet PO (21:59)
[2019-09-15] MEDS: Pravastatin 40 MG Tablet PO (21:59)
[2019-09-15] MEDS: Gabapentin 100 MG Capsule PO (21:59)
[2019-09-15] MEDS: Benzonatate 100 MG Capsule PO (22:42)
[2019-09-15] MEDS: Acetaminophen 500 MG Tablet 1000 MG PO (22:42)
[2019-09-16] MEDS: Carvedilol 6.25 MG Tablet PO ×2 (06:19→17:29)
[2019-09-16] MEDS: APIXABAN 2.5 MG TABLET PO ×2 (06:20→17:29)
[2019-09-16] MEDS: Amiodarone 200 MG Tablet PO ×2 (06:20)
[2019-09-16] MEDS: Citalopram 20 MG Tablet PO (06:20)
[2019-09-16] MEDS: Furosemide 40 MG Tablet PO (06:21)
[2019-09-16] MEDS: SACUBITRIL/VALSARTAN 24/26 MG TABLET 1 EACH PO ×2 (06:21→17:30)
[2019-09-16] MEDS: BRIMONIDINE 0.15% 5 ML Bottle 1 DRP EACH EYE ×2 (06:22→17:30)
[2019-09-16] MEDS: Fluticasone 0.05% 1 SPRAY NASAL.SRY 2 SPRAY NASAL (06:22)
[2019-09-16] MEDS: 0.9% Saline Lock 10 ML Syringe IV ×3 (06:26→22:06)
[2019-09-16] MEDS: Vitamin B Comp W-C Capsule 1 CAP PO (07:55)
[2019-09-16] MEDS: Aspirin 81 MG TAB.CHEW PO (07:55)
[2019-09-16] MEDS: Magnesium Oxide 400 MG Tablet 200 MG PO (09:39)
[2019-09-16] MEDS: Multivitamins,Therapeutic Tablet 1 TABLET PO (11:21)
[2019-09-16 14:18] VITALS: BP 96/57; PULSE 74; RESP 14; TEMP 36.4; O2SAT 95
[2019-09-16] MEDS: Acetaminophen 500 MG Tablet 1000 MG PO (17:39)
[2019-09-16] MEDS: Amitriptyline 25 MG Tablet 50 MG PO (22:21)
[2019-09-16] MEDS: Levothyroxine 88 MCG Tablet PO (22:22)
[2019-09-16] MEDS: Pravastatin 40 MG Tablet PO (22:22)
[2019-09-16] MEDS: Gabapentin 100 MG Capsule PO (22:22)
[2019-09-17] MEDS: BRIMONIDINE 0.15% 5 ML Bottle 1 DRP EACH EYE ×2 (06:01→17:45)
[2019-09-17] MEDS: Citalopram 20 MG Tablet PO (06:02)
[2019-09-17] MEDS: Furosemide 40 MG Tablet PO (06:02)
[2019-09-17] MEDS: Carvedilol 6.25 MG Tablet PO ×2 (06:02→17:45)
[2019-09-17] MEDS: SACUBITRIL/VALSARTAN 24/26 MG TABLET 1 EACH PO ×2 (06:02→17:45)
[2019-09-17] MEDS: Fluticasone 0.05% 1 SPRAY NASAL.SRY 2 SPRAY NASAL (06:03)
[2019-09-17] MEDS: APIXABAN 2.5 MG TABLET PO ×2 (06:03→17:45)
[2019-09-17] MEDS: 0.9% Saline Lock 10 ML Syringe IV ×2 (06:14→21:23)
[2019-09-17] MEDS: Benzonatate 100 MG Capsule PO ×3 (06:21→21:22)
[2019-09-17 06:34] LABS: Anion Gap 7 (5-15); BUN 34 mg/dL (7-18); BUN/Creat Ratio 22.2 RATIO (10-20); Calcium,Total 8.9 mg/dL (8.5-10.1); Chloride 105 mmol/L (98-107); Creatinine, Serum 1.53 mg/dL (0.55-1.02); EST Glomerular Filtration Rate 35 mL/min (>60); Est Glom Filt Rate - Afr Amer 42 mL/min (>60); Glucose 88 mg/dL (74-106); Potassium 4.8 mmol/L (3.5-5.1); Sodium Level 136 mmol/L (136-145)
[2019-09-17] MEDS: Vitamin B Comp W-C Capsule 1 CAP PO ×2 (09:13)
[2019-09-17] MEDS: Aspirin 81 MG TAB.CHEW PO (09:13)
[2019-09-17] MEDS: Acetaminophen 500 MG Tablet 1000 MG PO ×2 (09:17→22:12)
[2019-09-17 10:00] VITALS: PULSE 73; RESP 18; O2SAT 94
[2019-09-17] MEDS: Multivitamins,Therapeutic Tablet 1 TABLET PO (11:58)
[2019-09-17 12:02] VITALS: TEMP 36.8
--- NOTE | 2019-09-17 13:28 | RAD_ITS ---
STUDY: X-RAY CHEST REASON FOR EXAM: Female, 79 years old. Dry cough, chest pain TECHNIQUE: PA and lateral views of the chest. COMPARISON: 08/29/2019 FINDINGS: Stable appearance of a left subclavian pacemaker and right-sided PICC line There are interstitial fibrotic changes of the lungs. There is no demonstrated pleural abnormality. Sternal cerclage wires and vascular clips are present from a prior sternotomy and coronary artery bypass graft procedure (CABG). Normal mediastinum and juana. Normal visualized pulmonary arteries. Normal visualized aortic arch and descending thoracic aorta. Normal visualized thoracic spine. Normal visualized ribs, clavicles, and shoulders. There is no demonstrated abnormality of the visualized soft tissue structures of the upper abdomen. RAD/Chest PA and Lateral IMPRESSION: Degenerative changes, as described above. No demonstrated acute cardiopulmonary process. Electronically Signed: Josesito Osborn MD at 13:59 EST , Service support ,
[2019-09-17] MEDS: guaiFENesin Dm 10 ML UDC PO ×2 (13:50→22:12)
[2019-09-17 14:21] VITALS: BP 106/65; PULSE 78; RESP 17; TEMP 36.8; O2SAT 97
[2019-09-17] MEDS: Gabapentin 100 MG Capsule PO (21:22)
[2019-09-17] MEDS: Levothyroxine 88 MCG Tablet PO (21:22)
[2019-09-17] MEDS: Pravastatin 40 MG Tablet PO (21:22)
[2019-09-17] MEDS: Amitriptyline 25 MG Tablet 50 MG PO (21:22)
[2019-09-18] MEDS: 0.9% Saline Lock 10 ML Syringe IV ×3 (05:24→21:06)
[2019-09-18] MEDS: BRIMONIDINE 0.15% 5 ML Bottle 1 DRP EACH EYE ×2 (06:11→17:44)
[2019-09-18] MEDS: Amiodarone 200 MG Tablet PO (06:12)
[2019-09-18] MEDS: APIXABAN 2.5 MG TABLET PO ×2 (06:12→17:45)
[2019-09-18] MEDS: Furosemide 40 MG Tablet PO (06:12)
[2019-09-18] MEDS: SACUBITRIL/VALSARTAN 49-51 MG TABLET 1 EACH PO ×2 (06:12→17:45)
[2019-09-18] MEDS: Carvedilol 6.25 MG Tablet PO ×2 (06:12→17:45)
[2019-09-18] MEDS: Citalopram 20 MG Tablet PO (06:13)
[2019-09-18] MEDS: Fluticasone 0.05% 1 SPRAY NASAL.SRY 2 SPRAY NASAL (06:13)
[2019-09-18] MEDS: Aspirin 81 MG TAB.CHEW PO (08:59)
[2019-09-18] MEDS: Magnesium Oxide 400 MG Tablet 200 MG PO (08:59)
[2019-09-18] MEDS: Multivitamins,Therapeutic Tablet 1 TABLET PO (11:15)
[2019-09-18 14:36] VITALS: BP 128/53; PULSE 61; RESP 16; TEMP 36.2; O2SAT 94
[2019-09-18] MEDS: Benzonatate 100 MG Capsule PO (21:01)
[2019-09-18] MEDS: Gabapentin 100 MG Capsule PO (21:01)
[2019-09-18] MEDS: Levothyroxine 88 MCG Tablet PO (21:01)
[2019-09-18] MEDS: Amitriptyline 25 MG Tablet 50 MG PO (21:01)
[2019-09-18] MEDS: Pravastatin 40 MG Tablet PO (21:01)
[2019-09-18] MEDS: Acetaminophen 500 MG Tablet 1000 MG PO (21:01)
[2019-09-18] MEDS: guaiFENesin Dm 10 ML UDC PO (21:02)
[2019-09-19] MEDS: BRIMONIDINE 0.15% 5 ML Bottle 1 DRP EACH EYE ×2 (06:07→17:48)
[2019-09-19] MEDS: Fluticasone 0.05% 1 SPRAY NASAL.SRY 2 SPRAY NASAL (06:07)
[2019-09-19] MEDS: Citalopram 20 MG Tablet PO (06:08)
[2019-09-19] MEDS: APIXABAN 2.5 MG TABLET PO ×2 (06:08→17:49)
[2019-09-19] MEDS: SACUBITRIL/VALSARTAN 49-51 MG TABLET 1 EACH PO ×2 (06:08→17:49)
[2019-09-19] MEDS: Carvedilol 6.25 MG Tablet PO ×2 (06:09→17:49)
[2019-09-19] MEDS: Amiodarone 200 MG Tablet PO (06:09)
[2019-09-19] MEDS: Furosemide 40 MG Tablet PO (06:10)
[2019-09-19] MEDS: 0.9% Saline Lock 10 ML Syringe IV ×4 (06:18→21:09)
[2019-09-19 07:01] LABS: Anion Gap 4 (5-15); BUN 30 mg/dL (7-18); BUN/Creat Ratio 22.1 RATIO (10-20); Calcium,Total 9.1 mg/dL (8.5-10.1); Chloride 108 mmol/L (98-107); Creatinine, Serum 1.36 mg/dL (0.55-1.02); EST Glomerular Filtration Rate 40 mL/min (>60); Est Glom Filt Rate - Afr Amer 48 mL/min (>60); Estimated Creatinine Clearance 37.46 ml/min; Glucose 77 mg/dL (74-106); Sodium Level 139 mmol/L (136-145)
[2019-09-19] MEDS: Aspirin 81 MG TAB.CHEW PO (09:42)
[2019-09-19] MEDS: Vitamin B Comp W-C Capsule 1 CAP PO (09:42)
[2019-09-19] MEDS: Multivitamins,Therapeutic Tablet 1 TABLET PO (12:06)
[2019-09-19 14:37] VITALS: BP 94/63; PULSE 72; RESP 18; TEMP 36.4; O2SAT 90
[2019-09-19] MEDS: Benzonatate 100 MG Capsule PO (21:06)
[2019-09-19] MEDS: guaiFENesin Dm 10 ML UDC PO (21:06)
[2019-09-19] MEDS: Acetaminophen 500 MG Tablet 1000 MG PO (21:06)
[2019-09-19] MEDS: Amitriptyline 25 MG Tablet 50 MG PO (21:07)
[2019-09-19] MEDS: Gabapentin 100 MG Capsule PO (21:07)
[2019-09-19] MEDS: Pravastatin 40 MG Tablet PO (21:07)
[2019-09-19] MEDS: Levothyroxine 88 MCG Tablet PO (21:07)
--- NOTE | 2019-09-20 06:00 | ECHOD_ITS ---
Reason For Study: Endocarditis Procedure This was a limited 2D transthoracic echocardiogram. Exam performed portable in patient room. Left Ventricle Mildly dilated left ventricle. Mild concentric left ventricular hypertrophy. Severe global left ventricular systolic dysfunction. The estimated ejection fraction is 15 %. There is severe global hypokinesis of the left ventricle. Right Ventricle Mildly dilated right ventricle. Mild global right ventricular systolic dysfunction. Mitral Valve Bioprosthetic mitral valve. Mobile mass noted on mitral valve which appears to be much smaller than previously demonstrated mass. Great Vessels Normal aortic root. Pericardium/Pleural No pericardial effusion. MMode/2D Measurements & Calculations LVIDd: 5.8 cm IVSd: 1.3 cm LVIDs: 5.5 cm LVPWd: 1.2 cm FS: 4.2 % Doppler Measurements & Calculations TR max shanice: 357.9 cm/sec TR max P.2 mmHg Interpretation Summary Mildly dilated left ventricle. Severe global left ventricular systolic dysfunction. The estimated ejection fraction is 15 %. Bioprosthetic mitral valve. Mobile mass noted on mitral valve which appears to be much smaller than previously demonstrated mass. Ordering Physician: Farhat Lan Referring Physician: Minerva Martin Performed By: Dorothea Blair, KEITH, RVT
[2019-09-20] MEDS: 0.9% Saline Lock 10 ML Syringe IV ×3 (06:33→22:09)
[2019-09-20] MEDS: Fluticasone 0.05% 1 SPRAY NASAL.SRY 2 SPRAY NASAL (06:34)
[2019-09-20] MEDS: BRIMONIDINE 0.15% 5 ML Bottle 1 DRP EACH EYE ×2 (06:34→17:10)
[2019-09-20] MEDS: Carvedilol 6.25 MG Tablet PO ×2 (06:35→17:10)
[2019-09-20] MEDS: SACUBITRIL/VALSARTAN 49-51 MG TABLET 1 EACH PO ×2 (06:35→17:10)
[2019-09-20] MEDS: Furosemide 40 MG Tablet PO (06:35)
[2019-09-20] MEDS: Citalopram 20 MG Tablet PO (06:35)
[2019-09-20] MEDS: APIXABAN 2.5 MG TABLET PO ×2 (06:35→17:10)
[2019-09-20] MEDS: Amiodarone 200 MG Tablet PO (06:35)
[2019-09-20] MEDS: Magnesium Oxide 400 MG Tablet 200 MG PO (08:49)
[2019-09-20] MEDS: Vitamin B Comp W-C Capsule 1 CAP PO (08:49)
[2019-09-20] MEDS: Aspirin 81 MG TAB.CHEW PO (08:49)
[2019-09-20] MEDS: Multivitamins,Therapeutic Tablet 1 TABLET PO (12:19)
[2019-09-20 15:16] VITALS: BP 102/65; PULSE 77; RESP 20; TEMP 36.4; O2SAT 92
--- NOTE | 2019-09-20 19:33 | PCM.TCUNOT ---
Subjective: Resident seen in room, she is doing well, ambulating in her room ad vivian, walking hallways with her . She is doing well with addition of Entresto. Vitals/I&O's: Vital Signs Temp Pulse Resp BP Pulse Ox 97.5 F L 77 20 H 102/65 92 09/20/19 15:16 09/20/19 15:16 09/20/19 15:16 09/20/19 15:16 09/20/19 15:16 Oxygen Delivery Method Room Air Weight: 79.742 kg Body Mass Index (BMI) 25.5 Finger Stick Blood Glucose 146 Intake and Output for Last 24 Hours 09/18/19 09/19/19 09/20/19 23:59 23:59 23:59 Intake Total 900.25 / 900.25 1020 / 1020 1000 / 1000 Balance 900.25 / 900.25 1020 / 1020 1000 / 1000 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) Renal insufficiency (Chronic) Nonhealing ulcer of right lower extremity with fat layer exposed (Chronic) Anxiety and depression (Chronic) HTN (hypertension) (Chronic) Cardiac dysrhythmia (Chronic) 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) DVT (deep venous thrombosis) (Chronic) Paroxysmal atrial fibrillation (Chronic) Chronic systolic (congestive) heart failure (Chronic) Menopausal osteoporosis (Chronic) Prediabetes (Chronic) Stroke (Chronic) Nonrheumatic mitral (valve) prolapse (Chronic) Hyperlipemia (Chronic) Atherosclerotic heart disease of [place] coronary artery with angina pectoris (Chronic) 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) Restrictive lung disease (Chronic) URMILA (obstructive sleep apnea) (Chronic) Hypothyroidism (Chronic) 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) mod-severe stenosis by SOL 08/11/15 s/p MVR porcine Pulmonary HTN (Chronic) Cardiomyopathy (Chronic) Adrenal cortex insufficiency (Chronic) appears secondary baseline cortisol low ACTH stim test normal Medical History: Medical History (Last Reviewed 08/19/19 @ 17:37 by Kelvin Frazier DO) 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) Z95.810 detention current use of 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 (Chronic) Z79.01 DVT (deep venous thrombosis) (Chronic) I82.409 Paroxysmal atrial fibrillation (Chronic) I48.0 Chronic systolic (congestive) heart failure (Chronic) I50.22 Menopausal osteoporosis (Chronic) M81.0 Prediabetes (Chronic) R73.03 Stroke (Chronic) I63.9 Nonrheumatic mitral (valve) prolapse (Chronic) I34.1 Hyperlipemia (Chronic) E78.5 Atherosclerotic heart disease of [place] coronary artery with angina pectoris (Chronic) I25.119 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) M19.011 Spondylosis of cervical joint (Chronic) M47.812 Restrictive lung disease (Chronic) J98.4 URMILA (obstructive sleep apnea) (Chronic) G47.33 Hypothyroidism (Chronic) E03.9 Pulmonary HTN (Chronic) I27.2 Cardiomyopathy (Chronic) I42.9 Adrenal cortex insufficiency (Chronic) E27.40 appears secondary baseline cortisol low ACTH stim test normal Arrhythmia, ventricular (Inactive) I49.9 CAD (coronary artery disease) (Inactive) I25.10 Cardiac dysrhythmia, unspecified (Inactive) I49.9 Allergies levofloxacin [Levofloxacin] Allergy (Verified 08/31/19 13:46) Hives warfarin [From Coumadin] Allergy (Verified 08/31/19 13:46) Other torsemide [From Demadex] Adverse Reaction (Intermediate, Verified 08/31/19 13:46) Rash Home Medications: Ambulatory Orders Medication Instructions Recorded Multivitamins,Therapeutic 1 tab PO DAILY 11/16/15 [Multivitamin] albuterol sulfate 90 mcg/actuation 2 puff INHALATION BID PRN 09/10/17 aerosol inhaler pravastatin 40 mg tablet 40 mg PO QHS tab 09/11/17 fluticasone propionate 50 2 spray INTRANASAL DAILY 01/20/18 mcg/actuation nasal spray,suspension Levothyroxine [Synthroid] 88 mcg PO QHS 06/22/18 gabapentin 100 mg capsule 100 mg PO QHS cap 07/15/18 Aspirin [Aspirin, Baby] 81 mg PO DAILY@0800 09/07/18 amitriptyline 50 mg tablet 50 mg PO QHS 10/15/18 apixaban 2.5 mg tablet 2.5 mg PO BID 10/15/18 Acetaminophen [Tylenol] 1,000 mg PO Q4H PRN PRN 11/09/18 Budesonide Aerosol [Pulmicort 0.5 mg INHALATION BID PRN 11/09/18 Respules] magnesium 250 mg tablet 250 mg PO QODAY 07/22/19 Citalopram [Celexa] 20 mg PO DAILY 08/13/19 Vitamin B Complex [B Complex] 1 tab PO DAILY 08/13/19 Polyethylene Glycol 3350 [Miralax] 17 gm PO QHS 08/16/19 Ampicillin [Omnipen-N] 2 gm IV Q8 08/24/19 Brimonidine 0.15% [Alphagan P 1 drp EACH EYE BID 08/24/19 0.15%] Carvedilol [Coreg (Beta Rolando)] 6.25 mg PO BID 08/24/19 Furosemide [Lasix] 40 mg PO BID 08/24/19 Potassium Chloride [K-Tab ER] 20 meq PO BID 08/24/19 amiodarone 200 mg tablet 200 mg PO DAILY tab 09/01/19 Surgical History: Surgical History (Last Reviewed 08/19/19 @ 17:37 by Kelvin Frazier DO) 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 pertinent DOCUMENT IMPROVEMENT SPECIALIST history Lives: Spouse/ Significant Other Smoking Status: Never smoker Tobacco Use: Non-smoker Alcohol: None Drugs: None - *Family History Paternal Family History: Family History (Last Reviewed 08/19/19 @ 17:37 by Kelvin Frazier DO) Father CVA (cerebral vascular accident) Mother Cancer Sister Cancer Diabetes History Items: Stroke Sibling Family History: Family History (Last Reviewed 08/19/19 @ 17:37 by Kelvin Frazier DO) Father CVA (cerebral vascular accident) Mother Cancer Sister Cancer Diabetes History Items: Cancer, Diabetes Maternal Family History: Family History (Last Reviewed 08/19/19 @ 17:37 by Kelvin Frazier DO) Father CVA (cerebral vascular accident) Mother Cancer Sister Cancer Diabetes History Items: Cancer Capacity - Capacity Assessment Tool Can the patient make a choice & communicate that choice?: Yes Can the patient understand benefits, risks and alternatives?: Yes Can the patient make a logical, rational choice?: Yes Is the choice the patient makes consistent w/ their values?: Yes Is there an impending, emergent risk to the patient?: No Does the patient have an Advance Directive?: No Is there a Surrogate Available?: Yes i.e. HCPOA: Yes i.e. close relative (spouse, child, parent, sibling)?: Yes Review of Systems Constitutional: Denies: Chills, Fever, Weight Change HEENT: Denies: Head Aches, Sinus Congestion, Sinus Drainage Cardiovascular: Denies: Chest Pain, Palpitations Respiratory: Denies: Cough, Shortness of breath at rest, Sputum production Gastrointestinal: Denies: Abdominal Pain, Nausea, Vomiting Genitourinary: Denies: Dysuria Musculoskeletal: Denies: Joint Pain, Joint Tenderness Skin: Denies: Rash, Wounds Neurological: Denies: Numbness, Tingling, Focal weakness Psychiatric: Denies: Anxiety, Depression, Homicidal Ideations, Suicidal Ideations Hematologic/ Lymphatic: Denies: Easy Bruising, Easy Bleeding - Physical Exam Vitals/I&O's: Vital Signs Temp Pulse Resp BP Pulse Ox 97.5 F L 77 20 H 102/65 92 09/20/19 15:16 09/20/19 15:16 09/20/19 15:16 09/20/19 15:16 09/20/19 15:16 Oxygen Delivery Method Room Air Weight: 79.742 kg Body Mass Index (BMI) 25.5 Finger Stick Blood Glucose 146 Intake and Output for Last 24 Hours 09/18/19 09/19/19 09/20/19 23:59 23:59 23:59 Intake Total 900.25 / 900.25 1020 / 1020 1000 / 1000 Balance 900.25 / 900.25 1020 / 1020 1000 / 1000 General: Alert, Oriented x3, Cooperative HEENT: Atraumatic, PERRLA, EOMI, Normocephalic Neck: Supple, No JVD, Negative Carotid Bruits Lungs: Clear to auscultation, Normal air movement Cardiovascular: Regular rate, No murmurs Abdomen: Bowel Sounds Present, Soft, Non Tender Extremities: No edema, Capillary Refill Less than 3 Seconds Skin: No rashes, No breakdown Musculoskeletal: No Tenderness to Palpation of Joints or Extremities Neurological: Cranial nerves II-XII grossly intact Psych/Mental Status: Normal Affect, Appropriate Current Medications Acetaminophen (Tylenol) 1,000 mg PO Q6H PRN PRN PRN Reason: Pain Score 1-05/20 Last Admin: 09/19/19 21:06 Dose: 1,000 mg Documented by: Albuterol Sulfate (Ventolin Hfa (Sp)) 2 puff INHALATION BID PRN PRN PRN Reason: SOB &/OR WHEEZING Amiodarone HCl (Cordarone) 200 mg PO DAILY [facility] Last Admin: 09/20/19 06:35 Dose: 200 mg Documented by: Amitriptyline HCl (Elavil) 50 mg PO QHS [facility] Last Admin: 09/19/19 21:07 Dose: 50 mg Documented by: Apixaban (Eliquis) 2.5 mg PO BID [facility] Last Admin: 09/20/19 17:10 Dose: 2.5 mg Documented by: Aspirin (Aspirin, Baby) 81 mg PO DAILY@0800 [facility] Last Admin: 09/20/19 08:49 Dose: 81 mg Documented by: Benzonatate (Tessalon Perle) 100 mg PO TID PRN PRN Reason: COUGH Last Admin: 09/19/19 21:06 Dose: 100 mg Documented by: Brimonidine Tartrate (Alphagan P 0.15%) 1 drop EACH EYE BID [facility] Last Admin: 09/20/19 17:10 Dose: 1 drop Documented by: Budesonide (Pulmicort Aerosol) 0.5 mg INHALATION BID PRN PRN Reason: WHEEZING Carvedilol (Coreg) 6.25 mg PO BID [facility] Last Admin: 09/20/19 17:10 Dose: 6.25 mg Documented by: Citalopram Hydrobromide (Celexa) 20 mg PO DAILY [facility] Last Admin: 09/20/19 06:35 Dose: 20 mg Documented by: Fluticasone Propionate (Flonase Nasal [place]) 2 spray NASAL DAILY [facility] Last Admin: 09/20/19 06:34 Dose: 2 spray Documented by: Furosemide (Lasix) 40 mg PO DAILY [facility] Last Admin: 09/20/19 06:35 Dose: 40 mg Documented by: Gabapentin (Neurontin) 100 mg PO QHS [facility] Last Admin: 09/19/19 21:07 Dose: 100 mg Documented by: Guaifenesin (Robitussin Dm) 10 ml PO Q6H PRN PRN PRN Reason: COUGH Last Admin: 09/19/19 21:06 Dose: 10 ml Documented by: Hydroxyzine Pamoate (Vistaril Pamoate Capsule) 25 mg PO 4X/DAY PRN PRN PRN Reason: ITCHING Last Admin: 09/13/19 21:54 Dose: 25 mg Documented by: Sodium Chloride () 250 mls @ 15 mls/hr IV .[id number] PRN PRN Reason: Saline Flush Last Infusion: 09/19/19 20:59 Dose: 0 mls/hr Documented by: Ampicillin Sodium 2 gm/ Sodium (Chloride) 100 mls @ 200 mls/hr IV Q8 [facility] Stop: 10/02/19 22:01 Last Infusion: 09/20/19 14:33 Dose: Infused Documented by: Levothyroxine Sodium (Synthroid) 88 mcg PO QHS [facility] Last Admin: 09/19/19 21:07 Dose: 88 mcg Documented by: Magnesium Oxide (Mag-Ox 400) 200 mg PO QODAY [facility] Last Admin: 09/20/19 08:49 Dose: 200 mg Documented by: Multivitamins (Allbee W/C Caplet, Thera B Comp/C) 1 capsule PO DAILY@0800 [facility] Last Admin: 09/20/19 08:49 Dose: 1 capsule Documented by: Multivitamins (Multivitamin) 1 tablet PO DAILY@1200 [facility] Last Admin: 09/20/19 12:19 Dose: 1 tablet Documented by: Polyethylene Glycol (Miralax) 17 gm PO QHS PRN PRN Reason: Constipation Potassium Chloride (K-Dur) 20 meq PO DAILYCM [facility] Last Admin: 09/20/19 08:49 Dose: 20 meq Documented by: Pravastatin Sodium (Pravachol) 40 mg PO QHS [facility] Last Admin: 09/19/19 21:07 Dose: 40 mg Documented by: Sacubitril/Valsartan (Entresto 49 Mg-51 Mg Tablet) 1 each PO BID [facility] Stop: 10/02/19 18:01 Last Admin: 09/20/19 17:10 Dose: 1 each Documented by: Sacubitril/Valsartan (Entresto 97 Mg-103 Mg Tablet) 1 each PO BID [facility] Sodium Chloride () 10 - 40 ml IV UD PRN PRN Reason: SALINE FLUSH Last Admin: 09/20/19 13:50 Dose: 20 ml Documented by: Assessment/Plan All Active Problems (Last Reviewed 08/19/19 @ 17:37 by Kelvin Frazier DO) Bacteremia (Acute) Debility (Acute) Encephalopathy (Acute) Severe sepsis (Acute) Endocarditis (Acute) Acute kidney injury (Acute) Hypotension (Acute) Leukocytosis (Acute) 79 year old female with below past medical history hospitalized for severe sepsis secondary to strep mitis bioprosthetic mitral valve endocarditis, complicated by acute kidney injury, hypotension, dehydration, admitted to TCU with debility, here for rehabilitation, strengthening, intravenous antibiotics, prior to discharge home with . Debility - PT/OT. Pain - Tylenol 1000MG Q6H PRN pain (1-10). Bowel - Miralax 17GM QHS PRN. Adult immunization - Administer Prevnar 13, Pneumovax 23, Fluzone as appropriate. DVT prophylaxis - Not necessary, already on Eliquis. Restrictive lung disease - Albuterol MDI 2 puffs BID PRN, Pulmicort 0.5MG BID PRN. Atrial fibrillation - Coreg 6.25MG BID, Amiodarone 200MG daily, Eliquis 2.5MG BID. Neuropathic pain - Elavil 50MG QHS, Gabapentin 100MG QHS. Endocarditis - Ampicillin 2GM IV Q8H thru 10/02/2019, Dr. Rodriguez, Echo today showed vegetation is smaller, but not gone. Coronary artery disease - Coreg 6.25MG BID, Aspirin 81MG daily. Cough - Tessalon [place]les 100MG TID PRN, Robitussin 10ML Q6H PRN. Glaucoma - Brimonidine 1GTT OU BID. Depression - Citalopram 20MG daily. Allergic Rhinitis - Flonase nasal spray 2 sprays daily. Chronic systolic congestive heart failure - Coreg 6.25MG twice daily, Lasix 40MG BID, Entresto 49/51MG twice daily thru 10/02/2019, then 97/103MG twice daily. Hypothyroidism - Levothyroxine 88MCG daily. Hypomagnesemia - Magnesium oxide 200MG every other day. Nutrition - MVI daily. Hypokalemia - K-Dur 20MEQ BID. Hyperlipidemia - Pravastatin 40MG QHS. Vitamin B deficiency - Vitamin B complex 1 capsule daily.
[2019-09-20] MEDS: Pravastatin 40 MG Tablet PO (20:15)
[2019-09-20] MEDS: Gabapentin 100 MG Capsule PO (20:15)
[2019-09-20] MEDS: Amitriptyline 25 MG Tablet 50 MG PO (20:15)
[2019-09-20] MEDS: Levothyroxine 88 MCG Tablet PO (20:15)
[2019-09-20] MEDS: Acetaminophen 500 MG Tablet 1000 MG PO (22:23)
[2019-09-21] MEDS: SACUBITRIL/VALSARTAN 49-51 MG TABLET 1 EACH PO ×2 (06:19→17:03)
[2019-09-21] MEDS: Citalopram 20 MG Tablet PO (06:19)
[2019-09-21] MEDS: Amiodarone 200 MG Tablet PO (06:19)
[2019-09-21] MEDS: APIXABAN 2.5 MG TABLET PO ×2 (06:19→17:03)
[2019-09-21] MEDS: BRIMONIDINE 0.15% 5 ML Bottle 1 DRP EACH EYE ×2 (06:21→17:03)
[2019-09-21] MEDS: Fluticasone 0.05% 1 SPRAY NASAL.SRY 2 SPRAY NASAL (06:21)
[2019-09-21] MEDS: Carvedilol 6.25 MG Tablet PO ×2 (06:22→17:03)
[2019-09-21 06:46] LABS: Anion Gap 5 (5-15); BUN 30 mg/dL (7-18); BUN/Creat Ratio 21.9 RATIO (10-20); Chloride 108 mmol/L (98-107); Creatinine, Serum 1.37 mg/dL (0.55-1.02); EST Glomerular Filtration Rate 40 mL/min (>60); Est Glom Filt Rate - Afr Amer 48 mL/min (>60); Estimated Creatinine Clearance 37.19 ml/min; Glucose 95 mg/dL (74-106); Potassium 4.6 mmol/L (3.5-5.1); Sodium Level 139 mmol/L (136-145)
[2019-09-21] MEDS: Vitamin B Comp W-C Capsule 1 CAP PO (08:25)
[2019-09-21] MEDS: Aspirin 81 MG TAB.CHEW PO (08:25)
[2019-09-21] MEDS: Furosemide 40 MG Tablet PO ×2 (09:31→17:03)
[2019-09-21] MEDS: Acetaminophen 500 MG Tablet 1000 MG PO ×2 (09:31→21:50)
[2019-09-21 09:43] VITALS: RESP 18; O2SAT 95
[2019-09-21] MEDS: Multivitamins,Therapeutic Tablet 1 TABLET PO (11:11)
[2019-09-21] MEDS: 0.9% Saline Lock 10 ML Syringe IV ×2 (13:19→21:35)
[2019-09-21 14:48] VITALS: BP 107/67; PULSE 81; RESP 16; TEMP 36.7; O2SAT 93
[2019-09-21] MEDS: Polyethylene Glycol 3350 17 GM PACKET PO (19:31)
[2019-09-21] MEDS: Levothyroxine 88 MCG Tablet PO (21:32)
[2019-09-21] MEDS: Amitriptyline 25 MG Tablet 50 MG PO (21:32)
[2019-09-21] MEDS: Gabapentin 100 MG Capsule PO (21:32)
[2019-09-21] MEDS: Pravastatin 40 MG Tablet PO (21:32)
[2019-09-21] MEDS: Benzonatate 100 MG Capsule PO (21:50)
[2019-09-22 06:11] LABS: Absolute Lymphocyte Count 1.14 X10^3/uL (0.83-4.51); Absolute Neutrophil Count 5.5 X10^3/uL (2.0-7.7); Basophil# 0.07 X10^3/uL; Basophil% 0.8 % (0-1); Eosinophil# 0.58 X10^3/uL; Eosinophils% 6.9 % (0-5); Hemoglobin 9.5 g/dL (12.0-15.0); Lymphocyte # 1.14 X10^3/ul (4.0); Lymphocyte % 13.6 % (19-41); Mean Corp Hgb Conc 30.6 g/dL (32-36); Mean Corpuscular Hgb 28.9 pg (27.0-32.0); Mean Corpuscular Volume 94.2 fL (81-99); Mean Platelet Vol. 8.9 fl (6.2-12.0); Monocyte# 0.99 X10^3/uL; Monocyte% 11.8 % (0-10); NRBC Flagged by Analyzer 0 % (0-5); Neutrophil # 5.54 X10^3/uL (2.7-7.7); Neutrophil % 66.4 % (47-70); Platelet Count 196 K/mm3 (150-450); RBC Distribution Width CV 18.5 % (11.6-14.6); RBC Distribution Width SD 63.4 fl (35.1-43.9); Red Blood Count 3.29 M/mm3 (4.2-5.4); White Blood Count 8.4 K/mm3 (4.4-11.0)
[2019-09-22] MEDS: BRIMONIDINE 0.15% 5 ML Bottle 1 DRP EACH EYE ×2 (06:27→17:08)
[2019-09-22] MEDS: Amiodarone 200 MG Tablet PO (06:27)
[2019-09-22] MEDS: Citalopram 20 MG Tablet PO (06:27)
[2019-09-22] MEDS: APIXABAN 2.5 MG TABLET PO ×2 (06:28→17:09)
[2019-09-22] MEDS: Carvedilol 6.25 MG Tablet PO ×2 (06:29→17:09)
[2019-09-22] MEDS: Fluticasone 0.05% 1 SPRAY NASAL.SRY 2 SPRAY NASAL (06:29)
[2019-09-22 06:30] LABS: Anion Gap 4 (5-15); BUN 30 mg/dL (7-18); BUN/Creat Ratio 19.9 RATIO (10-20); Calcium,Total 8.8 mg/dL (8.5-10.1); Chloride 108 mmol/L (98-107); Creatinine, Serum 1.51 mg/dL (0.55-1.02); EST Glomerular Filtration Rate 36 mL/min (>60); Est Glom Filt Rate - Afr Amer 43 mL/min (>60); Estimated Creatinine Clearance 33.74 ml/min; Glucose 88 mg/dL (74-106); Potassium 4.2 mmol/L (3.5-5.1); Sodium Level 139 mmol/L (136-145)
[2019-09-22] MEDS: SACUBITRIL/VALSARTAN 49-51 MG TABLET 1 EACH PO ×2 (06:31→17:09)
[2019-09-22] MEDS: 0.9% Saline Lock 10 ML Syringe IV ×2 (06:32→21:33)
[2019-09-22] MEDS: Vitamin B Comp W-C Capsule 1 CAP PO (09:33)
[2019-09-22] MEDS: Aspirin 81 MG TAB.CHEW PO (09:33)
[2019-09-22] MEDS: Magnesium Oxide 400 MG Tablet 200 MG PO (09:33)
[2019-09-22] MEDS: Polyethylene Glycol 3350 17 GM PACKET PO (09:38)
[2019-09-22] MEDS: Acetaminophen 500 MG Tablet 1000 MG PO ×2 (09:38→20:11)
[2019-09-22] MEDS: Furosemide 40 MG Tablet PO ×2 (09:43→17:09)
[2019-09-22 10:00] VITALS: PULSE 82; RESP 16; O2SAT 95
[2019-09-22] MEDS: Multivitamins,Therapeutic Tablet 1 TABLET PO (12:03)
[2019-09-22 14:42] VITALS: BP 98/61; PULSE 84; RESP 18; TEMP 36.6; O2SAT 96
[2019-09-22] MEDS: Benzonatate 100 MG Capsule PO (20:12)
[2019-09-22] MEDS: Gabapentin 100 MG Capsule PO (21:20)
[2019-09-22] MEDS: Amitriptyline 25 MG Tablet 50 MG PO (21:20)
[2019-09-22] MEDS: Pravastatin 40 MG Tablet PO (21:21)
[2019-09-22] MEDS: Levothyroxine 88 MCG Tablet PO (21:21)
[2019-09-23 04:17] LABS: Anion Gap 4 (5-15); BUN 36 mg/dL (7-18); BUN/Creat Ratio 21.6 RATIO (10-20); Calcium,Total 8.7 mg/dL (8.5-10.1); Chloride 108 mmol/L (98-107); Creatinine, Serum 1.67 mg/dL (0.55-1.02); EST Glomerular Filtration Rate 32 mL/min (>60); Est Glom Filt Rate - Afr Amer 38 mL/min (>60); Estimated Creatinine Clearance 30.51 ml/min; Glucose 79 mg/dL (74-106); Potassium 4.6 mmol/L (3.5-5.1); Sodium Level 141 mmol/L (136-145)
[2019-09-23 06:35] VITALS: BP 115/72; PULSE 85
[2019-09-23] MEDS: BRIMONIDINE 0.15% 5 ML Bottle 1 DRP EACH EYE ×2 (06:43→17:02)
[2019-09-23] MEDS: Fluticasone 0.05% 1 SPRAY NASAL.SRY 2 SPRAY NASAL (06:43)
[2019-09-23] MEDS: Citalopram 20 MG Tablet PO (06:45)
[2019-09-23] MEDS: Amiodarone 200 MG Tablet PO (06:45)
[2019-09-23] MEDS: SACUBITRIL/VALSARTAN 49-51 MG TABLET 1 EACH PO ×2 (06:46→17:02)
[2019-09-23] MEDS: APIXABAN 2.5 MG TABLET PO ×2 (06:46→17:02)
[2019-09-23] MEDS: 0.9% Saline Lock 10 ML Syringe IV ×3 (06:47→21:26)
[2019-09-23] MEDS: Carvedilol 6.25 MG Tablet PO ×2 (06:47→17:02)
[2019-09-23] MEDS: Aspirin 81 MG TAB.CHEW PO (07:43)
[2019-09-23] MEDS: Vitamin B Comp W-C Capsule 1 CAP PO (07:43)
[2019-09-23] MEDS: Furosemide 40 MG/4 ML Vial IV ×2 (09:27→17:02)
[2019-09-23] MEDS: Multivitamins,Therapeutic Tablet 1 TABLET PO (11:52)
[2019-09-23] MEDS: hydrOXYzine PAM 25 MG Capsule PO ×2 (13:32→21:24)
[2019-09-23 14:11] VITALS: BP 98/73; PULSE 84; RESP 16; TEMP 36.4; O2SAT 93
[2019-09-23] MEDS: Acetaminophen 500 MG Tablet 1000 MG PO (17:05)
--- NOTE | 2019-09-23 18:57 | NURSING ---
Addendum entered by Sasha Gil 09/23/19 18:58: pt started on IV lasix, no more dizzy spells. Original Note: AT 10:38 AM PT COMPLAINED OF DIZZINESS. VITALS DONE,REPORTED TO JOSSE CERDA
[2019-09-23] MEDS: Amitriptyline 25 MG Tablet 50 MG PO (21:24)
[2019-09-23] MEDS: Pravastatin 40 MG Tablet PO (21:25)
[2019-09-23] MEDS: Gabapentin 100 MG Capsule PO (21:25)
[2019-09-23] MEDS: Levothyroxine 88 MCG Tablet PO (21:25)
[2019-09-24] MEDS: Fluticasone 0.05% 1 SPRAY NASAL.SRY 2 SPRAY NASAL (05:59)
[2019-09-24] MEDS: BRIMONIDINE 0.15% 5 ML Bottle 1 DRP EACH EYE ×2 (06:00→16:57)
[2019-09-24] MEDS: Carvedilol 6.25 MG Tablet PO ×2 (06:01→16:58)
[2019-09-24] MEDS: Citalopram 20 MG Tablet PO (06:01)
[2019-09-24] MEDS: 0.9% Saline Lock 10 ML Syringe IV ×4 (06:01→21:07)
[2019-09-24] MEDS: SACUBITRIL/VALSARTAN 49-51 MG TABLET 1 EACH PO ×2 (06:01→16:58)
[2019-09-24] MEDS: Furosemide 40 MG/4 ML Vial IV ×2 (06:01→13:33)
[2019-09-24] MEDS: APIXABAN 2.5 MG TABLET PO ×2 (06:01→16:57)
[2019-09-24] MEDS: Amiodarone 200 MG Tablet PO (06:01)
[2019-09-24] MEDS: Aspirin 81 MG TAB.CHEW PO (08:35)
[2019-09-24] MEDS: Vitamin B Comp W-C Capsule 1 CAP PO (08:35)
[2019-09-24] MEDS: Magnesium Oxide 400 MG Tablet 200 MG PO (12:16)
[2019-09-24] MEDS: Multivitamins,Therapeutic Tablet 1 TABLET PO (12:17)
[2019-09-24 14:04] VITALS: BP 96/58; PULSE 73; RESP 17; TEMP 36.7; O2SAT 90
[2019-09-24 16:55] VITALS: BP 106/66; PULSE 77
[2019-09-24] MEDS: guaiFENesin Dm 10 ML UDC PO (20:55)
[2019-09-24] MEDS: Benzonatate 100 MG Capsule PO (20:55)
[2019-09-24] MEDS: Acetaminophen 500 MG Tablet 1000 MG PO (20:55)
[2019-09-24] MEDS: Levothyroxine 88 MCG Tablet PO (20:59)
[2019-09-24] MEDS: Pravastatin 40 MG Tablet PO (20:59)
[2019-09-24] MEDS: Amitriptyline 25 MG Tablet 50 MG PO (20:59)
[2019-09-24] MEDS: Gabapentin 100 MG Capsule PO (21:00)
[2019-09-25 06:19] VITALS: BP 102/63; PULSE 81
[2019-09-25] MEDS: Fluticasone 0.05% 1 SPRAY NASAL.SRY 2 SPRAY NASAL (06:21)
[2019-09-25] MEDS: Citalopram 20 MG Tablet PO (06:21)
[2019-09-25] MEDS: Furosemide 40 MG/4 ML Vial IV ×2 (06:22→14:16)
[2019-09-25] MEDS: Amiodarone 200 MG Tablet PO (06:22)
[2019-09-25] MEDS: SACUBITRIL/VALSARTAN 49-51 MG TABLET 1 EACH PO ×2 (06:22→17:20)
[2019-09-25] MEDS: APIXABAN 2.5 MG TABLET PO ×2 (06:23→17:20)
[2019-09-25] MEDS: Carvedilol 6.25 MG Tablet PO ×2 (06:23→17:20)
[2019-09-25] MEDS: BRIMONIDINE 0.15% 5 ML Bottle 1 DRP EACH EYE ×2 (06:28→17:21)
[2019-09-25] MEDS: 0.9% Saline Lock 10 ML Syringe IV ×3 (06:28→14:13)
[2019-09-25 08:27] LABS: Anion Gap 6 (5-15); BUN 42 mg/dL (7-18); BUN/Creat Ratio 23.7 RATIO (10-20); Calcium,Total 8.8 mg/dL (8.5-10.1); Chloride 106 mmol/L (98-107); Creatinine, Serum 1.77 mg/dL (0.55-1.02); EST Glomerular Filtration Rate 30 mL/min (>60); Est Glom Filt Rate - Afr Amer 36 mL/min (>60); Estimated Creatinine Clearance 28.78 ml/min; Glucose 89 mg/dL (74-106); Potassium 3.9 mmol/L (3.5-5.1); Sodium Level 138 mmol/L (136-145)
[2019-09-25] MEDS: Aspirin 81 MG TAB.CHEW PO (08:54)
[2019-09-25] MEDS: Vitamin B Comp W-C Capsule 1 CAP PO (08:54)
[2019-09-25] MEDS: Multivitamins,Therapeutic Tablet 1 TABLET PO (11:25)
[2019-09-25 14:03] VITALS: BP 104/63; PULSE 76; RESP 17; TEMP 36.7; O2SAT 96
[2019-09-25] MEDS: Benzonatate 100 MG Capsule PO (14:13)
[2019-09-25] MEDS: hydrOXYzine PAM 25 MG Capsule PO (14:13)
[2019-09-25] MEDS: Acetaminophen 500 MG Tablet 1000 MG PO (21:28)
[2019-09-25] MEDS: guaiFENesin Dm 10 ML UDC PO (21:28)
[2019-09-25] MEDS: Amitriptyline 25 MG Tablet 50 MG PO (21:29)
[2019-09-25] MEDS: Levothyroxine 88 MCG Tablet PO (21:29)
[2019-09-25] MEDS: Pravastatin 40 MG Tablet PO (21:30)
[2019-09-25] MEDS: Gabapentin 100 MG Capsule PO (21:30)
[2019-09-26] MEDS: Amiodarone 200 MG Tablet PO (05:32)
[2019-09-26] MEDS: APIXABAN 2.5 MG TABLET PO ×2 (05:32→17:04)
[2019-09-26] MEDS: SACUBITRIL/VALSARTAN 49-51 MG TABLET 1 EACH PO ×2 (05:32→17:04)
[2019-09-26] MEDS: Carvedilol 6.25 MG Tablet PO ×2 (05:32→17:04)
[2019-09-26] MEDS: BRIMONIDINE 0.15% 5 ML Bottle 1 DRP EACH EYE ×2 (05:33→17:03)
[2019-09-26] MEDS: Fluticasone 0.05% 1 SPRAY NASAL.SRY 2 SPRAY NASAL (05:33)
[2019-09-26] MEDS: Furosemide 40 MG/4 ML Vial IV ×2 (05:33→13:43)
[2019-09-26] MEDS: Citalopram 20 MG Tablet PO (05:33)
[2019-09-26] MEDS: 0.9% Saline Lock 10 ML Syringe IV ×3 (05:34→13:44)
[2019-09-26] MEDS: Aspirin 81 MG TAB.CHEW PO (08:35)
[2019-09-26] MEDS: Vitamin B Comp W-C Capsule 1 CAP PO (08:35)
[2019-09-26] MEDS: hydrOXYzine PAM 25 MG Capsule PO (09:46)
[2019-09-26] MEDS: Acetaminophen 500 MG Tablet 1000 MG PO (09:46)
[2019-09-26] MEDS: Magnesium Oxide 400 MG Tablet 200 MG PO (09:49)
[2019-09-26 09:56] VITALS: RESP 16
[2019-09-26] MEDS: Multivitamins,Therapeutic Tablet 1 TABLET PO (11:35)
[2019-09-26] MEDS: Benzonatate 100 MG Capsule PO (13:49)
[2019-09-26 14:04] VITALS: BP 96/64; PULSE 80; RESP 17; TEMP 36.6; O2SAT 93
--- NOTE | 2019-09-26 14:31 | NURSING ---
Notified Dr. Lan of pt c/o itching. Received order to change the Vistaril pamoate 25mg to 50mg 4/day. Order repeated back, will add order.
[2019-09-26] MEDS: hydrOXYzine PAM 25 MG Capsule 50 MG PO (17:03)
[2019-09-26] MEDS: Pravastatin 40 MG Tablet PO (20:19)
[2019-09-26] MEDS: Levothyroxine 88 MCG Tablet PO (20:19)
[2019-09-26] MEDS: Amitriptyline 25 MG Tablet 50 MG PO (20:19)
[2019-09-26] MEDS: Gabapentin 100 MG Capsule PO (20:20)
[2019-09-27] MEDS: Carvedilol 6.25 MG Tablet PO ×2 (05:26→17:31)
[2019-09-27] MEDS: Citalopram 20 MG Tablet PO (05:26)
[2019-09-27] MEDS: SACUBITRIL/VALSARTAN 49-51 MG TABLET 1 EACH PO ×2 (05:26→17:32)
[2019-09-27] MEDS: Amiodarone 200 MG Tablet PO (05:26)
[2019-09-27] MEDS: APIXABAN 2.5 MG TABLET PO ×2 (05:26→17:32)
[2019-09-27] MEDS: BRIMONIDINE 0.15% 5 ML Bottle 1 DRP EACH EYE ×2 (05:26→17:31)
[2019-09-27] MEDS: Fluticasone 0.05% 1 SPRAY NASAL.SRY 2 SPRAY NASAL (05:27)
[2019-09-27] MEDS: Furosemide 40 MG/4 ML Vial IV ×2 (05:27→14:54)
[2019-09-27 05:28] LABS: Anion Gap 6 (5-15); BUN 41 mg/dL (7-18); BUN/Creat Ratio 24.7 RATIO (10-20); Calcium,Total 8.8 mg/dL (8.5-10.1); Chloride 106 mmol/L (98-107); Creatinine, Serum 1.66 mg/dL (0.55-1.02); EST Glomerular Filtration Rate 32 mL/min (>60); Est Glom Filt Rate - Afr Amer 39 mL/min (>60); Estimated Creatinine Clearance 30.69 ml/min; Glucose 87 mg/dL (74-106); Potassium 4.6 mmol/L (3.5-5.1); Sodium Level 141 mmol/L (136-145)
[2019-09-27] MEDS: Benzonatate 100 MG Capsule PO (06:29)
[2019-09-27] MEDS: Acetaminophen 500 MG Tablet 1000 MG PO ×2 (06:29→22:00)
[2019-09-27] MEDS: Vitamin B Comp W-C Capsule 1 CAP PO (08:21)
[2019-09-27] MEDS: Aspirin 81 MG TAB.CHEW PO (08:21)
[2019-09-27] MEDS: guaiFENesin Dm 10 ML UDC PO ×2 (08:25→22:00)
[2019-09-27] MEDS: Lidocaine 5% Patch 1 PATCH TOPICAL (11:06)
[2019-09-27] MEDS: Multivitamins,Therapeutic Tablet 1 TABLET PO (11:26)
[2019-09-27] MEDS: 0.9% Saline Lock 10 ML Syringe IV ×3 (13:37→22:02)
[2019-09-27] MEDS: hydrOXYzine PAM 25 MG Capsule 50 MG PO ×2 (13:47→22:01)
[2019-09-27 15:06] VITALS: BP 93/59; PULSE 68; RESP 16; TEMP 36.6; O2SAT 96
[2019-09-27] MEDS: Gabapentin 100 MG Capsule PO (22:06)
[2019-09-27] MEDS: Pravastatin 40 MG Tablet PO (22:06)
[2019-09-27] MEDS: Levothyroxine 88 MCG Tablet PO (22:07)
[2019-09-27] MEDS: Amitriptyline 25 MG Tablet 50 MG PO (22:07)
[2019-09-27 22:23] VITALS: RESP 18
[2019-09-28] MEDS: Citalopram 20 MG Tablet PO (05:26)
[2019-09-28] MEDS: Amiodarone 200 MG Tablet PO (05:26)
[2019-09-28] MEDS: Furosemide 40 MG/4 ML Vial IV ×2 (05:27→14:22)
[2019-09-28] MEDS: Carvedilol 6.25 MG Tablet PO ×2 (05:29→17:28)
[2019-09-28] MEDS: BRIMONIDINE 0.15% 5 ML Bottle 1 DRP EACH EYE ×2 (05:29→17:28)
[2019-09-28] MEDS: SACUBITRIL/VALSARTAN 49-51 MG TABLET 1 EACH PO ×2 (05:30→17:28)
[2019-09-28] MEDS: Fluticasone 0.05% 1 SPRAY NASAL.SRY 2 SPRAY NASAL (05:30)
[2019-09-28] MEDS: APIXABAN 2.5 MG TABLET PO ×2 (05:30→17:28)
[2019-09-28] MEDS: Vitamin B Comp W-C Capsule 1 CAP PO (08:24)
[2019-09-28] MEDS: Aspirin 81 MG TAB.CHEW PO (08:24)
[2019-09-28] MEDS: Acetaminophen 500 MG Tablet 1000 MG PO ×2 (08:34→22:46)
[2019-09-28] MEDS: Benzonatate 100 MG Capsule PO (09:05)
[2019-09-28] MEDS: Magnesium Oxide 400 MG Tablet 200 MG PO (10:22)
--- NOTE | 2019-09-28 10:45 | PCM.PN.ID ---
Subjective: Feeling ok, some itching past few days which is improved with meds. No fever, no n/v/d, no issues with picc - Physical Exam Vitals/I&O's: Vital Signs Temp Pulse Resp BP Pulse Ox 97.9 F 68 18 93/59 L 96 09/27/19 15:06 09/27/19 15:06 09/27/19 22:23 09/27/19 15:06 09/27/19 15:06 Oxygen Delivery Method CPAP Weight: 79.152 kg Body Mass Index (BMI) 25.5 Finger Stick Blood Glucose 146 Intake and Output for Last 24 Hours 09/26/19 09/27/19 09/28/19 23:59 23:59 23:59 Intake Total 1560 / 1560 1136.67 / 1136.67 360 / 360 Balance 1560 / 1560 1136.67 / 1136.67 360 / 360 General: Alert, Cooperative, No apparent distress Lungs: Clear to auscultation, Normal air movement Cardiovascular: Regular rate, Regular Rhythm Abdomen: Soft, Non Tender, Non-Distended Skin: No rashes Current Medications Acetaminophen (Tylenol) 1,000 mg PO Q6H PRN PRN PRN Reason: Pain Score 1-10/10 Last Admin: 09/28/19 08:34 Dose: 1,000 mg Documented by: Albuterol Sulfate (Ventolin Hfa (Sp)) 2 puff INHALATION BID PRN PRN PRN Reason: SOB &/OR WHEEZING Last Admin: 09/24/19 08:32 Dose: 2 puff Documented by: Amiodarone HCl (Cordarone) 200 mg PO DAILY [facility] Last Admin: 09/28/19 05:26 Dose: 200 mg Documented by: Amitriptyline HCl (Elavil) 50 mg PO QHS [facility] Last Admin: 09/27/19 22:07 Dose: 50 mg Documented by: Apixaban (Eliquis) 2.5 mg PO BID [facility] Last Admin: 09/28/19 05:30 Dose: 2.5 mg Documented by: Aspirin (Aspirin, Baby) 81 mg PO DAILY@0800 [facility] Last Admin: 09/28/19 08:24 Dose: 81 mg Documented by: Benzonatate (Tessalon Perle) 100 mg PO TID PRN PRN Reason: COUGH Last Admin: 09/28/19 09:05 Dose: 100 mg Documented by: Brimonidine Tartrate (Alphagan P 0.15%) 1 drop EACH EYE BID [facility] Last Admin: 09/28/19 05:29 Dose: 1 drop Documented by: Budesonide (Pulmicort Aerosol) 0.5 mg INHALATION BID PRN PRN Reason: WHEEZING Carvedilol (Coreg) 6.25 mg PO BID [facility] Last Admin: 09/28/19 05:29 Dose: 6.25 mg Documented by: Citalopram Hydrobromide (Celexa) 20 mg PO DAILY [facility] Last Admin: 09/28/19 05:26 Dose: 20 mg Documented by: Fluticasone Propionate (Flonase Nasal [place]) 2 spray NASAL DAILY [facility] Last Admin: 09/28/19 05:30 Dose: 2 spray Documented by: Furosemide (Lasix) 40 mg IV BID@0600,1400 [facility] Last Admin: 09/28/19 05:27 Dose: 40 mg Documented by: Gabapentin (Neurontin) 100 mg PO QHS [facility] Last Admin: 09/27/19 22:06 Dose: 100 mg Documented by: Guaifenesin (Robitussin Dm) 10 ml PO Q6H PRN PRN PRN Reason: COUGH Last Admin: 09/27/19 22:00 Dose: 10 ml Documented by: Hydroxyzine Pamoate (Vistaril Pamoate Capsule) 50 mg PO 4X/DAY PRN PRN PRN Reason: ITCHING Last Admin: 09/27/19 22:01 Dose: 50 mg Documented by: Sodium Chloride () 250 mls @ 15 mls/hr IV .[id number] PRN PRN Reason: Saline Flush Last Infusion: 09/24/19 21:01 Dose: 0 mls/hr Documented by: Ampicillin Sodium 2 gm/ Sodium (Chloride) 100 mls @ 200 mls/hr IV Q8 [facility] Stop: 10/02/19 22:01 Last Admin: 09/28/19 05:28 Dose: 200 mls/hr Documented by: Levothyroxine Sodium (Synthroid) 88 mcg PO QHS [facility] Last Admin: 09/27/19 22:07 Dose: 88 mcg Documented by: Lidocaine (Lidoderm Patch) 1 patch TOPICAL DAILY@1100 [facility]; Protocol Magnesium Oxide (Mag-Ox 400) 200 mg PO QODAY [facility] Last Admin: 09/28/19 10:22 Dose: 200 mg Documented by: Multivitamins (Allbee W/C Caplet, Thera B Comp/C) 1 capsule PO DAILY@0800 [facility] Last Admin: 09/28/19 08:24 Dose: 1 capsule Documented by: Multivitamins (Multivitamin) 1 tablet PO DAILY@1200 [facility] Last Admin: 09/27/19 11:26 Dose: 1 tablet Documented by: Polyethylene Glycol (Miralax) 17 gm PO QHS PRN PRN Reason: Constipation Last Admin: 09/22/19 09:38 Dose: 17 gm Documented by: Potassium Chloride (K-Dur) 20 meq PO DAILYCM [facility] Last Admin: 09/28/19 08:25 Dose: 20 meq Documented by: Pravastatin Sodium (Pravachol) 40 mg PO QHS [facility] Last Admin: 09/27/19 22:06 Dose: 40 mg Documented by: Sacubitril/Valsartan (Entresto 49 Mg-51 Mg Tablet) 1 each PO BID [facility] Stop: 10/02/19 18:01 Last Admin: 09/28/19 05:30 Dose: 1 each Documented by: Sacubitril/Valsartan (Entresto 97 Mg-103 Mg Tablet) 1 each PO BID [facility] Sodium Chloride () 10 - 40 ml IV UD PRN PRN Reason: SALINE FLUSH Last Admin: 09/27/19 22:02 Dose: 10 ml Documented by: Medical Necessity - Tobacco Use Smoking Status: Never smoker Tobacco Use: Non-smoker Route of nutrition/ use of supplements: [] Nutritional Intake: [] IV Site: [] Andrews Catheter: [] - Assessment/Plan Antibiotics: [] Assessment/Plan: [] Strep mitis bioprosthetic mitral valve endocarditis - Possible oral source with recent dental cleaning, but she reports compliance with abx prophylaxis. Strep less than 0.06 SUDARSHAN to PCN, R to ceftriaxone. Will avoid aminoglycoside due to risk of nephrotoxicity, particularly with her recovering SAY. Repeat bcx neg. Plan will be for 6 weeks of iv ampicillin, stop date 10/02/19. Weekly bmp and cbc while on iv abx. Typical recommendation with endocarditis would be for removal/replacement of cardiac devices, but risks may be higher than the benefits for her given her comorbidities. Plan on po amoxicillin 500mg bid indefinitely for suppression after completing iv course. ID followup with me in one month. Will follow
[2019-09-28] MEDS: Lidocaine 5% Patch 1 PATCH TOPICAL (11:05)
[2019-09-28] MEDS: Multivitamins,Therapeutic Tablet 1 TABLET PO (11:05)
[2019-09-28 12:28] VITALS: PULSE 67; RESP 18; O2SAT 96
--- NOTE | 2019-09-28 13:09 | CASEMGMT ---
Social Work: met with pt to discuss DC plans. Pt to DC 10/03. No OP or HHC. No DME needs. Plan DC: 10/03 home with , no needs Clarisa Quevedo, social work intelligence intern Shakila Souza, BUSINESS TECHNOLOGY ANALYST REGULATORY MANAGER
[2019-09-28 14:20] VITALS: BP 91/48; PULSE 65; RESP 16; TEMP 36.5; O2SAT 94
[2019-09-28] MEDS: 0.9% Saline Lock 10 ML Syringe IV ×2 (14:21→22:59)
--- NOTE | 2019-09-28 16:02 | CASEMGMT ---
Social Work Reviewed and agreed with social work architect internship documentation on this date. Shakila Souza, SENIOR SOFTWARE ANALYST SOIL FERTILITY SPECIALIST
--- NOTE | 2019-09-28 20:26 | DCINST_ITS ---
- Discharge Diagnoses Current Active Problems: Current Active and Chronic Problems (Last Reviewed 08/19/19 @ 17:37 by Kelvin Frazier DO) Glaucoma (Chronic) Neuropathic pain (Chronic) Fecal impaction (Chronic) Atrial fibrillation (Chronic) Coronary artery disease (Chronic) Adrenal insufficiency (Chronic) You will use the following diet at home:: Fluid restricted (specify 2000 mls, 1500 mls) - 1500 mls. Your food should be the consistency of: Regular Your liquids should be the consistency of: Regular/Thin Discharge Activity: Return to Normal Activity, May Shower, Use Walker Weight Bearing Status: Weight bearing as tolerated Call your doctor if you observe: Fever of 101 or Higher, Inability to urinate, Inability to have a bowel movement, Shortness of breath, Chest pain, Uncontrolled pain Allergies/Adverse Reactions: Allergies levofloxacin [Levofloxacin] Allergy (Verified 08/31/19 13:46) Hives warfarin [From Coumadin] Allergy (Verified 08/31/19 13:46) Other torsemide [From Demadex] Adverse Reaction (Intermediate, Verified 08/31/19 13:46) Rash Medications to take at Discharge Multivitamins,Therapeutic [Multivitamin] 1 tab PO DAILY 11/16/15 albuterol sulfate 90 mcg/actuation aerosol inhaler 2 puff INHALATION BID PRN 09/10/17 pravastatin 40 mg tablet 40 mg PO QHS tab 09/11/17 fluticasone propionate 50 mcg/actuation nasal spray,suspension 2 spray INTRANASAL DAILY 01/20/18 Levothyroxine [Synthroid] 88 mcg PO QHS 06/22/18 gabapentin 100 mg capsule 100 mg PO QHS cap 07/15/18 Aspirin [Aspirin, Baby] 81 mg PO DAILY@0800 09/07/18 amitriptyline 50 mg tablet 50 mg PO QHS 10/15/18 apixaban 2.5 mg tablet 2.5 mg PO BID 10/15/18 Acetaminophen [Tylenol] 1,000 mg PO Q4H PRN PRN 11/09/18 Budesonide Aerosol [Pulmicort Respules] 0.5 mg INHALATION BID PRN 11/09/18 magnesium 250 mg tablet 250 mg PO QODAY 07/22/19 Citalopram [Celexa] 20 mg PO DAILY 08/13/19 Vitamin B Complex [B Complex] 1 tab PO DAILY 08/13/19 Polyethylene Glycol 3350 [Miralax] 17 gm PO QHS 08/16/19 Brimonidine 0.15% [Alphagan P 0.15%] 1 drp EACH EYE BID 08/24/19 Carvedilol [Coreg (Beta Rolando)] 6.25 mg PO BID 08/24/19 Furosemide [Lasix] 40 mg PO BID 08/24/19 Potassium Chloride [K-Tab ER] 20 meq PO BID 08/24/19 amiodarone 200 mg tablet 200 mg PO DAILY tab 09/01/19 Amiodarone HCl [Cordarone] 200 mg PO DAILY tab 09/28/19 Amoxicillin 500 mg PO BID #60 tab 09/28/19 Benzonatate [Tessalon Perle] 100 mg PO TID PRN cap 09/28/19 Furosemide [Lasix] 40 mg PO BID@1000,1800 #60 tab 09/28/19 Guaifenesin Dm [Robitussin Dm] 10 ml PO Q6H PRN PRN udc 09/28/19 Lidocaine [Lidoderm Patch] 1 patch TOPICAL DAILY@1100 #30 patch 09/28/19 Sacubitril/Valsartan 97-103 mg [Entresto 97 mg-103 mg Tablet] 1 ea PO BID #60 tab 09/28/19 hydrOXYzine pamoate capsule [Vistaril pamoate capsule] 50 mg PO 4X/DAY PRN PRN #120 cap 09/28/19 The following prescriptions were given: Amoxicillin 500 mg PO BID #60 tab Transmission Status: Pending to [facility] Sacubitril/Valsartan 97-103 mg [Entresto 97 mg-103 mg Tablet] 1 ea PO BID #60 tab Transmission Status: Pending to [facility] Furosemide [Lasix] 40 mg PO BID@1000,1800 #60 tab Transmission Status: Pending to [facility] Lidocaine [Lidoderm Patch] 1 patch TOPICAL DAILY@1100 #30 patch Transmission Status: Pending to [facility] hydrOXYzine pamoate capsule [Vistaril pamoate capsule] 50 mg PO 4X/DAY PRN PRN #120 cap PRN Reason: Itching Transmission Status: Pending to [facility] Primary Care Physician: Minerva Martin MD [Primary Care Provider] - Please follow up with your Primary Care Physician in: 1 week. Test Results: Test results from this visit will be discussed in further detail at your follow- up appointment, if applicable. Please Follow Up With: Gurdeep Huang MD When: [phone] Please Follow Up With: Minerva Martin MD When: evaluate mitral valve vegitation Please Follow Up With: Alejandro Rodriguez MD When: 2 weeks. Proposed Discharge Date: 10/03/19
--- NOTE | 2019-09-28 20:28 | PCM.DC.SUM ---
Discharge Date and Diagnosis Date of Admission: 08/24/19 Date of Discharge: 10/03/19 - Secondary Discharge Diagnosis Chronic Problems (Last Reviewed 08/19/19 @ 17:37 by Kelvin Frazier DO) Glaucoma (Chronic) Neuropathic pain (Chronic) Fecal impaction (Chronic) Atrial fibrillation (Chronic) Coronary artery disease (Chronic) Adrenal insufficiency (Chronic) 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) Renal insufficiency (Chronic) Nonhealing ulcer of right lower extremity with fat layer exposed (Chronic) Anxiety and depression (Chronic) HTN (hypertension) (Chronic) Cardiac dysrhythmia (Chronic) detention current use of 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 (Chronic) DVT (deep venous thrombosis) (Chronic) Paroxysmal atrial fibrillation (Chronic) Chronic systolic (congestive) heart failure (Chronic) Menopausal osteoporosis (Chronic) Prediabetes (Chronic) Stroke (Chronic) Nonrheumatic mitral (valve) prolapse (Chronic) Hyperlipemia (Chronic) Atherosclerotic heart disease of [place] coronary artery with angina pectoris (Chronic) 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) Restrictive lung disease (Chronic) URMILA (obstructive sleep apnea) (Chronic) Hypothyroidism (Chronic) 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 No demonstrated acute cardiopulmonary process. Electronically Signed: Josesito Osborn MD at 13:59 EST , Service support , Labs (Last 48 Hours) 09/27/19 04:55 Sodium 141 Potassium 4.6 Chloride 106 Carbon Dioxide 29.0 Anion Gap 6 BUN 41 H Creatinine 1.66 H Estim Creat Clear Calc 30.69 Est GFR (MDRD) Af Amer 39 L Est GFR (MDRD) Non-Af 32 L BUN/Creatinine Ratio 24.7 H Glucose 87 Calcium 8.8 Operations: None, - Procedures: None Summary of Care Provided: The patient is a 79 year old Female with below past medical history hospitalized for severe sepsis secondary to strep mitis bioprosthetic mitral valve endocarditis, complicated by acute kidney injury, hypotension, dehydration, admitted to TCU with debility, here for rehabilitation, strengthening, intravenous antibiotics, prior to discharge home with . On TCU, Lidoderm patches added for Left hip pain. Entresto added, titrated up to 97/103MG twice daily for chronic systolic congestive failure, Lasix dose may need adjustment to maintain volume status. She required IV Lasix on TCU to keep her weight down. Hydroxyzine 50MG Q6H PRN added for itching without rash, should be able to stop as outpatient. Dr. Rodriguez recommended Amoxicillin 500MG twice daily rest of her life to prevent endocarditis from recurring. Discharge home with . - Physical Exam Vitals/I&O's: Vital Signs Temp Pulse Resp BP Pulse Ox 97.7 F L 65 16 91/48 L 94 09/28/19 14:20 09/28/19 14:20 09/28/19 14:20 09/28/19 14:20 09/28/19 14:20 Oxygen Delivery Method Room Air Weight: 79.152 kg Body Mass Index (BMI) 25.5 Finger Stick Blood Glucose 146 Intake and Output for Last 24 Hours 09/26/19 09/27/19 09/28/19 23:59 23:59 23:59 Intake Total 1560 / 1560 1136.67 / 1136.67 800 / 800 Balance 1560 / 1560 1136.67 / 1136.67 800 / 800 Current Medications Acetaminophen (Tylenol) 1,000 mg PO Q6H PRN PRN PRN Reason: Pain Score 1-10/10 Last Admin: 09/28/19 08:34 Dose: 1,000 mg Documented by: Albuterol Sulfate (Ventolin Hfa (Sp)) 2 puff INHALATION BID PRN PRN PRN Reason: SOB &/OR WHEEZING Last Admin: 09/24/19 08:32 Dose: 2 puff Documented by: Amiodarone HCl (Cordarone) 200 mg PO DAILY [facility] Last Admin: 09/28/19 05:26 Dose: 200 mg Documented by: Amitriptyline HCl (Elavil) 50 mg PO QHS [facility] Last Admin: 09/27/19 22:07 Dose: 50 mg Documented by: Apixaban (Eliquis) 2.5 mg PO BID [facility] Last Admin: 09/28/19 17:28 Dose: 2.5 mg Documented by: Aspirin (Aspirin, Baby) 81 mg PO DAILY@0800 [facility] Last Admin: 09/28/19 08:24 Dose: 81 mg Documented by: Benzonatate (Tessalon Perle) 100 mg PO TID PRN PRN Reason: COUGH Last Admin: 09/28/19 09:05 Dose: 100 mg Documented by: Brimonidine Tartrate (Alphagan P 0.15%) 1 drop EACH EYE BID [facility] Last Admin: 09/28/19 17:28 Dose: 1 drop Documented by: Budesonide (Pulmicort Aerosol) 0.5 mg INHALATION BID PRN PRN Reason: WHEEZING Carvedilol (Coreg) 6.25 mg PO BID [facility] Last Admin: 09/28/19 17:28 Dose: 6.25 mg Documented by: Citalopram Hydrobromide (Celexa) 20 mg PO DAILY [facility] Last Admin: 09/28/19 05:26 Dose: 20 mg Documented by: Fluticasone Propionate (Flonase Nasal [place]) 2 spray NASAL DAILY [facility] Last Admin: 09/28/19 05:30 Dose: 2 spray Documented by: Furosemide (Lasix) 40 mg PO BID@1000,1800 [facility] Gabapentin (Neurontin) 100 mg PO QHS [facility] Last Admin: 09/27/19 22:06 Dose: 100 mg Documented by: Guaifenesin (Robitussin Dm) 10 ml PO Q6H PRN PRN PRN Reason: COUGH Last Admin: 09/27/19 22:00 Dose: 10 ml Documented by: Hydroxyzine Pamoate (Vistaril Pamoate Capsule) 50 mg PO 4X/DAY PRN PRN PRN Reason: ITCHING Last Admin: 09/27/19 22:01 Dose: 50 mg Documented by: Sodium Chloride () 250 mls @ 15 mls/hr IV .[id number] PRN PRN Reason: Saline Flush Last Infusion: 09/24/19 21:01 Dose: 0 mls/hr Documented by: Ampicillin Sodium 2 gm/ Sodium (Chloride) 100 mls @ 200 mls/hr IV Q8 [facility] Stop: 10/02/19 22:01 Last Infusion: 09/28/19 14:51 Dose: Infused Documented by: Levothyroxine Sodium (Synthroid) 88 mcg PO QHS [facility] Last Admin: 09/27/19 22:07 Dose: 88 mcg Documented by: Lidocaine (Lidoderm Patch) 1 patch TOPICAL DAILY@1100 [facility]; Protocol Last Admin: 09/28/19 11:05 Dose: 1 patch Documented by: Magnesium Oxide (Mag-Ox 400) 200 mg PO QODAY [facility] Last Admin: 09/28/19 10:22 Dose: 200 mg Documented by: Multivitamins (Allbee W/C Caplet, Thera B Comp/C) 1 capsule PO DAILY@0800 [facility] Last Admin: 09/28/19 08:24 Dose: 1 capsule Documented by: Multivitamins (Multivitamin) 1 tablet PO DAILY@1200 [facility] Last Admin: 09/28/19 11:05 Dose: 1 tablet Documented by: Polyethylene Glycol (Miralax) 17 gm PO QHS PRN PRN Reason: Constipation Last Admin: 09/22/19 09:38 Dose: 17 gm Documented by: Potassium Chloride (K-Dur) [facility] Last Admin: 09/28/19 08:25 Dose: 20 meq Documented by: Pravastatin Sodium (Pravachol) 40 mg PO QHS [facility] Last Admin: 09/27/19 22:06 Dose: 40 mg Documented by: Sacubitril/Valsartan (Entresto 49 Mg-51 Mg Tablet) 1 each PO BID [facility] Stop: 10/02/19 18:01 Last Admin: 09/28/19 17:28 Dose: 1 each Documented by: Sacubitril/Valsartan (Entresto 97 Mg-103 Mg Tablet) 1 each PO BID [facility] Sodium Chloride () 10 - 40 ml IV UD PRN PRN Reason: SALINE FLUSH Last Admin: 09/28/19 14:21 Dose: 20 ml Documented by: Discharge Diet: 6 Cup Fluid Restriction Discharge Activity: Return to Normal Activity, May Shower, Use Walker Weight Bearing Status: Weight bearing as tolerated Call your doctor if you observe: Fever of 101 or Higher, Inability to urinate, Inability to have a bowel movement, Shortness of breath, Chest pain, Uncontrolled pain Home Medications: Medications to take at Discharge Multivitamins,Therapeutic [Multivitamin] 1 tab PO DAILY 11/16/15 albuterol sulfate 90 mcg/actuation aerosol inhaler 2 puff INHALATION BID PRN 09/10/17 pravastatin 40 mg tablet 40 mg PO QHS tab 09/11/17 fluticasone propionate 50 mcg/actuation nasal spray,suspension 2 spray INTRANASAL DAILY 01/20/18 Levothyroxine [Synthroid] 88 mcg PO QHS 06/22/18 gabapentin 100 mg capsule 100 mg PO QHS cap 07/15/18 Aspirin [Aspirin, Baby] 81 mg PO DAILY@0800 09/07/18 amitriptyline 50 mg tablet 50 mg PO QHS 10/15/18 apixaban 2.5 mg tablet 2.5 mg PO BID 10/15/18 Acetaminophen [Tylenol] 1,000 mg PO Q4H PRN PRN 11/09/18 Budesonide Aerosol [Pulmicort Respules] 0.5 mg INHALATION BID PRN 11/09/18 magnesium 250 mg tablet 250 mg PO QODAY 07/22/19 Citalopram [Celexa] 20 mg PO DAILY 08/13/19 Vitamin B Complex [B Complex] 1 tab PO DAILY 08/13/19 Polyethylene Glycol 3350 [Miralax] 17 gm PO QHS 08/16/19 Brimonidine 0.15% [Alphagan P 0.15%] 1 drp EACH EYE BID 08/24/19 Carvedilol [Coreg (Beta [place])] 6.25 mg PO BID 08/24/19 Furosemide [Lasix] 40 mg PO BID 08/24/19 Potassium Chloride [K-Tab ER] 20 meq PO BID 08/24/19 amiodarone 200 mg tablet 200 mg PO DAILY tab 09/01/19 Amiodarone HCl [Cordarone] 200 mg PO DAILY tab 09/28/19 Amoxicillin 500 mg PO BID #60 tab 09/28/19 Benzonatate [Tessalon Perle] 100 mg PO TID PRN cap 09/28/19 Furosemide [Lasix] 40 mg PO BID@1000,1800 #60 tab 09/28/19 Guaifenesin Dm [Robitussin Dm] 10 ml PO Q6H PRN PRN udc 09/28/19 Lidocaine [Lidoderm Patch] 1 patch TOPICAL DAILY@1100 #30 patch 09/28/19 Sacubitril/Valsartan 97-103 mg [Entresto 97 mg-103 mg Tablet] 1 ea PO BID #60 tab 09/28/19 hydrOXYzine pamoate capsule [Vistaril pamoate capsule] 50 mg PO 4X/DAY PRN PRN #120 cap 09/28/19 Following Prescrptions Were Given to Patient: Amoxicillin 500 mg PO BID #60 tab Transmission Status: Pending to [facility] Sacubitril/Valsartan 97-103 mg [Entresto 97 mg-103 mg Tablet] 1 ea PO BID #60 tab Transmission Status: Pending to [facility] Furosemide [Lasix] 40 mg PO BID@1000,1800 #60 tab Transmission Status: Pending to [facility] Lidocaine [Lidoderm Patch] 1 patch TOPICAL DAILY@1100 #30 patch Transmission Status: Pending to [facility] hydrOXYzine pamoate capsule [Vistaril pamoate capsule] 50 mg PO 4X/DAY PRN PRN #120 cap PRN Reason: Itching Transmission Status: Pending to [facility] Primary Care Physician: Minerva Martin MD [Primary Care Provider] - Please follow up with your Primary Care Physician in: 1 week. Please Follow Up With: Gurdeep Huang MD When: [phone] Please Follow Up With: Minerva Martin MD When: evaluate mitral valve vegitation Please Follow Up With: Alejandro Rodriguez MD When: 2 weeks. Disposition: Home Minutes spent on discharge:: 35 Patient Condition:: Stable Medical Necessity - Tobacco Use Smoking Status: Never smoker Tobacco Use: Non-smoker Meaningful Use Info Meaningful Use Diagnoses (Choose all that apply): None applicable
[2019-09-28] MEDS: Pravastatin 40 MG Tablet PO (22:48)
[2019-09-28] MEDS: Amitriptyline 25 MG Tablet 50 MG PO (22:49)
[2019-09-28] MEDS: Gabapentin 100 MG Capsule PO (22:49)
[2019-09-28] MEDS: Levothyroxine 88 MCG Tablet PO (22:49)
[2019-09-29] MEDS: BRIMONIDINE 0.15% 5 ML Bottle 1 DRP EACH EYE ×2 (05:06→17:23)
[2019-09-29] MEDS: Fluticasone 0.05% 1 SPRAY NASAL.SRY 2 SPRAY NASAL (05:07)
[2019-09-29] MEDS: APIXABAN 2.5 MG TABLET PO ×2 (05:09→17:23)
[2019-09-29] MEDS: SACUBITRIL/VALSARTAN 49-51 MG TABLET 1 EACH PO ×2 (05:09→17:23)
[2019-09-29] MEDS: Amiodarone 200 MG Tablet PO (05:10)
[2019-09-29] MEDS: Carvedilol 6.25 MG Tablet PO ×2 (05:10→17:23)
[2019-09-29] MEDS: Citalopram 20 MG Tablet PO (05:11)
[2019-09-29 05:15] VITALS: BP 101/63; PULSE 68; RESP 22; O2SAT 98
[2019-09-29 05:21] LABS: Absolute Lymphocyte Count 1.07 X10^3/uL (0.83-4.51); Absolute Neutrophil Count 4.7 X10^3/uL (2.0-7.7); Basophil# 0.08 X10^3/uL; Eosinophil# 0.89 X10^3/uL; Eosinophils% 11.3 % (0-5); Hematocrit 30.8 % (37-47); Hemoglobin 9.5 g/dL (12.0-15.0); Lymphocyte # 1.07 X10^3/ul (4.0); Lymphocyte % 13.6 % (19-41); Mean Corp Hgb Conc 30.8 g/dL (32-36); Mean Corpuscular Hgb 28.8 pg (27.0-32.0); Mean Corpuscular Volume 93.3 fL (81-99); Mean Platelet Vol. 9.1 fl (6.2-12.0); Monocyte# 1.08 X10^3/uL; Monocyte% 13.7 % (0-10); NRBC Flagged by Analyzer 0 % (0-5); Neutrophil # 4.72 X10^3/uL (2.7-7.7); Platelet Count 219 K/mm3 (150-450); RBC Distribution Width CV 18.6 % (11.6-14.6); RBC Distribution Width SD 63.3 fl (35.1-43.9); White Blood Count 7.9 K/mm3 (4.4-11.0)
[2019-09-29 05:33] LABS: Anion Gap 6 (5-15); BUN 45 mg/dL (7-18); BUN/Creat Ratio 25.6 RATIO (10-20); Calcium,Total 8.7 mg/dL (8.5-10.1); Chloride 106 mmol/L (98-107); Creatinine, Serum 1.76 mg/dL (0.55-1.02); EST Glomerular Filtration Rate 30 mL/min (>60); Est Glom Filt Rate - Afr Amer 36 mL/min (>60); Estimated Creatinine Clearance 28.95 ml/min; Glucose 83 mg/dL (74-106); Potassium 4.2 mmol/L (3.5-5.1); Sodium Level 141 mmol/L (136-145)
[2019-09-29] MEDS: Vitamin B Comp W-C Capsule 1 CAP PO (08:40)
[2019-09-29] MEDS: Aspirin 81 MG TAB.CHEW PO (08:40)
[2019-09-29] MEDS: Furosemide 40 MG Tablet PO ×2 (08:41→17:23)
[2019-09-29] MEDS: Multivitamins,Therapeutic Tablet 1 TABLET PO (11:45)
[2019-09-29] MEDS: Lidocaine 5% Patch 1 PATCH TOPICAL (11:45)
[2019-09-29 14:25] VITALS: BP 94/65; PULSE 70; RESP 16; TEMP 36.4; O2SAT 95
[2019-09-29] MEDS: Acetaminophen 500 MG Tablet 1000 MG PO (21:19)
[2019-09-29] MEDS: Benzonatate 100 MG Capsule PO (21:19)
[2019-09-29] MEDS: Levothyroxine 88 MCG Tablet PO (21:25)
[2019-09-29] MEDS: Gabapentin 100 MG Capsule PO (21:26)
[2019-09-29] MEDS: Pravastatin 40 MG Tablet PO (21:26)
[2019-09-29] MEDS: Amitriptyline 25 MG Tablet 50 MG PO (21:26)
[2019-09-30 05:52] VITALS: BP 95/56; PULSE 74
[2019-09-30] MEDS: APIXABAN 2.5 MG TABLET PO ×2 (06:01→16:50)
[2019-09-30] MEDS: Carvedilol 6.25 MG Tablet PO ×2 (06:02→16:50)
[2019-09-30] MEDS: Amiodarone 200 MG Tablet PO (06:02)
[2019-09-30] MEDS: Citalopram 20 MG Tablet PO (06:02)
[2019-09-30] MEDS: SACUBITRIL/VALSARTAN 49-51 MG TABLET 1 EACH PO ×2 (06:02→16:49)
[2019-09-30] MEDS: 0.9% Saline Lock 10 ML Syringe IV ×3 (06:03→22:03)
[2019-09-30] MEDS: BRIMONIDINE 0.15% 5 ML Bottle 1 DRP EACH EYE ×2 (06:05→16:50)
[2019-09-30] MEDS: Fluticasone 0.05% 1 SPRAY NASAL.SRY 2 SPRAY NASAL (06:05)
[2019-09-30] MEDS: Vitamin B Comp W-C Capsule 1 CAP PO (08:34)
[2019-09-30] MEDS: Aspirin 81 MG TAB.CHEW PO (08:34)
[2019-09-30] MEDS: Magnesium Oxide 400 MG Tablet 200 MG PO (08:34)
[2019-09-30] MEDS: Furosemide 40 MG Tablet PO ×2 (08:34→16:50)
[2019-09-30] MEDS: Lidocaine 5% Patch 1 PATCH TOPICAL (08:35)
[2019-09-30] MEDS: Acetaminophen 500 MG Tablet 1000 MG PO ×2 (10:07→22:01)
--- NOTE | 2019-09-30 10:11 | MDS.RN ---
Pain interview for valeria 10/03/19 completed.
[2019-09-30] MEDS: Multivitamins,Therapeutic Tablet 1 TABLET PO (11:09)
[2019-09-30 14:24] VITALS: BP 100/61; PULSE 72; RESP 18; TEMP 36.4; O2SAT 96
--- NOTE | 2019-09-30 14:47 | CHAPLAIN ---
Type of Pastoral Visit ___ Initial Visit _x__ Follow-up Visit ___ On-call Visit ___ General Patient Visit ___ Spiritual Assessment ___ Family Conference ___ Bereavement ___ Rapid Response ___ Code Blue ___ Other (describe below) Pastoral Care Referral From _x__ Patient _x__ Family ___ Nurse ___ Physician ___ Planting Material Remover ___ Ginner Helper ___ Other (describe below) Sacrament/Intervention _x__ Active listening ___ Anointing ___ Taoism ___ Bereavement ___ Communion ___ Shelly exploration ___ ___ Life review _x__ Prayer ___ Reconciliation ___ Sacrament of Sick ___ Supportive presence ___ Wedding ___ Other (describe below) Pastoral Comments patient to be discharged over the weekend; follow up for any additional care or concerns; pt hopeful and requests prayer support
[2019-09-30] MEDS: Benzonatate 100 MG Capsule PO (22:01)
[2019-09-30] MEDS: Gabapentin 100 MG Capsule PO (22:02)
[2019-09-30] MEDS: Amitriptyline 25 MG Tablet 50 MG PO (22:02)
[2019-09-30] MEDS: Levothyroxine 88 MCG Tablet PO (22:02)
[2019-09-30] MEDS: Pravastatin 40 MG Tablet PO (22:02)
[2019-10-01] MEDS: hydrOXYzine PAM 25 MG Capsule 50 MG PO ×3 (00:12→14:41)
[2019-10-01 03:43] VITALS: BP 109/68; PULSE 73
[2019-10-01] MEDS: Benzonatate 100 MG Capsule PO (03:44)
[2019-10-01] MEDS: Acetaminophen 500 MG Tablet 1000 MG PO ×2 (04:16→14:51)
[2019-10-01] MEDS: 0.9% Saline Lock 10 ML Syringe IV ×2 (05:36→21:40)
[2019-10-01] MEDS: BRIMONIDINE 0.15% 5 ML Bottle 1 DRP EACH EYE ×2 (05:38→14:43)
[2019-10-01] MEDS: SACUBITRIL/VALSARTAN 49-51 MG TABLET 1 EACH PO ×2 (05:39→17:25)
[2019-10-01] MEDS: Amiodarone 200 MG Tablet PO (05:39)
[2019-10-01] MEDS: Fluticasone 0.05% 1 SPRAY NASAL.SRY 2 SPRAY NASAL (05:39)
[2019-10-01] MEDS: Citalopram 20 MG Tablet PO (05:39)
[2019-10-01] MEDS: APIXABAN 2.5 MG TABLET PO ×2 (05:39→17:25)
[2019-10-01] MEDS: Carvedilol 6.25 MG Tablet PO ×2 (05:40→17:25)
[2019-10-01] MEDS: Vitamin B Comp W-C Capsule 1 CAP PO (09:53)
[2019-10-01] MEDS: Lidocaine 5% Patch 1 PATCH TOPICAL (09:55)
[2019-10-01] MEDS: Furosemide 40 MG Tablet PO ×2 (09:55→17:25)
[2019-10-01] MEDS: Aspirin 81 MG TAB.CHEW PO (09:57)
[2019-10-01 10:00] VITALS: RESP 16
--- NOTE | 2019-10-01 10:25 | CASEMGMT ---
Social Work BIMs and PHQ-9 completed for MDS assessment. Clarisa Quevedo, social work internal revenue agent Shakila Souza, SCIENCE EDITOR FLOOR LAYER
[2019-10-01] MEDS: Multivitamins,Therapeutic Tablet 1 TABLET PO (14:42)
[2019-10-01 16:00] VITALS: BP 93/59; PULSE 66; RESP 16; TEMP 36.3; O2SAT 92
--- NOTE | 2019-10-01 16:04 | NURSING ---
patient received order for BMP next Friday10/08/19. pt will discharge on Friday10/03/19. Order will be sent with pt at discharge.
[2019-10-01] MEDS: Gabapentin 100 MG Capsule PO (21:40)
[2019-10-01] MEDS: Levothyroxine 88 MCG Tablet PO (21:40)
[2019-10-01] MEDS: Pravastatin 40 MG Tablet PO (21:40)
[2019-10-01] MEDS: Amitriptyline 25 MG Tablet 50 MG PO (21:40)
[2019-10-01] MEDS: DiphenhydrAMINE 25 MG Capsule 50 MG PO (21:40)
[2019-10-02] MEDS: Acetaminophen 500 MG Tablet 1000 MG PO ×3 (01:46→21:59)
[2019-10-02] MEDS: BRIMONIDINE 0.15% 5 ML Bottle 1 DRP EACH EYE ×2 (05:29→17:03)
[2019-10-02] MEDS: Citalopram 20 MG Tablet PO (05:30)
[2019-10-02] MEDS: Fluticasone 0.05% 1 SPRAY NASAL.SRY 2 SPRAY NASAL (05:30)
[2019-10-02] MEDS: APIXABAN 2.5 MG TABLET PO ×2 (05:30→17:03)
[2019-10-02] MEDS: 0.9% Saline Lock 10 ML Syringe IV ×2 (05:30→14:12)
[2019-10-02] MEDS: Carvedilol 6.25 MG Tablet PO ×2 (05:30→17:04)
[2019-10-02] MEDS: Amiodarone 200 MG Tablet PO (05:30)
[2019-10-02] MEDS: DiphenhydrAMINE 25 MG Capsule 50 MG PO (05:30)
[2019-10-02] MEDS: SACUBITRIL/VALSARTAN 49-51 MG TABLET 1 EACH PO ×2 (05:30→17:03)
[2019-10-02] MEDS: Vitamin B Comp W-C Capsule 1 CAP PO (08:37)
[2019-10-02] MEDS: Aspirin 81 MG TAB.CHEW PO (08:38)
[2019-10-02] MEDS: Magnesium Oxide 400 MG Tablet 200 MG PO (10:22)
[2019-10-02] MEDS: Furosemide 40 MG Tablet PO ×2 (10:22→17:04)
[2019-10-02] MEDS: Lidocaine 5% Patch 1 PATCH TOPICAL (10:23)
[2019-10-02] MEDS: Multivitamins,Therapeutic Tablet 1 TABLET PO (11:59)
[2019-10-02 14:41] VITALS: BP 99/61; PULSE 69; RESP 16; TEMP 36.5; O2SAT 92
[2019-10-02 19:57] VITALS: RESP 20
[2019-10-02] MEDS: Gabapentin 100 MG Capsule PO (21:56)
[2019-10-02] MEDS: Pravastatin 40 MG Tablet PO (21:56)
[2019-10-02] MEDS: Amitriptyline 25 MG Tablet 50 MG PO (21:56)
[2019-10-02] MEDS: Levothyroxine 88 MCG Tablet PO (21:56)
[2019-10-02] MEDS: Benzonatate 100 MG Capsule PO (21:58)
--- NOTE | 2019-10-02 23:50 | NURSING ---
PICC removed from RT upper ext per order. Trim length 39cm with tip intact. [place] jelly, 4x4 and [id number] dressing applied. Pt denied discomfort. Educated pt to remain flat for 1hr per policy. Pt agreeable. Resting in bed with call light in reach.
[2019-10-03] MEDS: Citalopram 20 MG Tablet PO (06:40)
[2019-10-03] MEDS: Amiodarone 200 MG Tablet PO (06:40)
[2019-10-03] MEDS: APIXABAN 2.5 MG TABLET PO (06:41)
[2019-10-03] MEDS: Fluticasone 0.05% 1 SPRAY NASAL.SRY 2 SPRAY NASAL (06:41)
[2019-10-03] MEDS: BRIMONIDINE 0.15% 5 ML Bottle 1 DRP EACH EYE (06:41)
[2019-10-03] MEDS: Carvedilol 6.25 MG Tablet PO (06:41)
[2019-10-03 06:42] VITALS: BP 129/76
[2019-10-03] MEDS: SACUBITRIL/VALSARTAN 97-103 MG TABLET 1 EACH PO (06:42)
[2019-10-03] MEDS: Aspirin 81 MG TAB.CHEW PO (07:44)
[2019-10-03] MEDS: Vitamin B Comp W-C Capsule 1 CAP PO (07:44)
[2019-10-03 08:24] VITALS: PULSE 74; RESP 18; O2SAT 92
[2019-10-03 08:42] VITALS: BP 106/57; PULSE 74; RESP 18; TEMP 36.7; O2SAT 92
[2019-10-03] MEDS: Furosemide 40 MG Tablet PO (09:01)
[2019-10-03] MEDS: Lidocaine 5% Patch 1 PATCH TOPICAL (09:21)
--- NOTE | 2019-10-04 15:53 | CASEMGMT ---
Social Work Reviewed and agreed with social work internal communications intern documentation on this date. Shakila Souza, LOADER OPERATOR BAND SINGER
== END 2019-10-03 10:30 | disposition home or self-care (01) | DRG 949 ==
PROVIDERS: Nurse Practitioner Family; Admitting Provider Family Medicine Geriatric Medicine; Family Provider Internal Medicine; PCP Internal Medicine; Visit Provider Family Medicine Geriatric Medicine
DX: T82.6XXD Infection and inflammatory reaction due to cardiac valve prosthesis, subsequent encounter (principal); I33.0 Acute and subacute infective endocarditis; E27.40 Unspecified adrenocortical insufficiency; I50.22 Chronic systolic (congestive) heart failure; I13.0 Hypertensive heart and chronic kidney disease with heart failure and stage 1 through stage 4 chronic kidney disease, or unspecified chronic kidney disease; I48.20 Chronic atrial fibrillation, unspecified; N17.9 Acute kidney failure, unspecified; Z23 Encounter for immunization; Y83.1 Surgical operation with implant of artificial internal device as the cause of abnormal reaction of the patient, or of later complication, without mention of misadventure at the time of the procedure; I25.10 Atherosclerotic heart disease of native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 without angina pectoris; E78.5 Hyperlipidemia, unspecified; I27.20 Pulmonary hypertension, unspecified; E03.9 Hypothyroidism, unspecified; J98.4 Other disorders of lung; F32.9 Major depressive disorder, single episode, unspecified; F41.9 Anxiety disorder, unspecified; R73.03 Prediabetes; N18.9 Chronic kidney disease, unspecified; G47.33 Obstructive sleep apnea (adult) (pediatric); Z86.718 Personal history of other venous thrombosis and embolism; Z95.810 Presence of automatic (implantable) cardiac defibrillator; E87.6 Hypokalemia; H40.9 Unspecified glaucoma; B95.5 Unspecified streptococcus as the cause of diseases classified elsewhere
CPT/HCPCS: 36415; 36569; 71045; 71046; 80048; 83880; 85025; 87633; 93308; 97110; 97116; 97162; 97166; 97530; 97535; 97802; G0009; J7050; 90670; A4216; J1940

== ENCOUNTER → 2019-10-08 11:49 | Outpatient (CLI) | payer MEDICARE, SELFPAY ==
[2019-10-01 13:31] VITALS: BMI 25.2
[2019-10-08 14:44] LABS: Anion Gap 3 (5-15); BUN 47 mg/dL (7-18); Calcium,Total 9.7 mg/dL (8.5-10.1); Chloride 104 mmol/L (98-107); Creatinine, Serum 2.24 mg/dL (0.55-1.02); EST Glomerular Filtration Rate 23 mL/min (>60); Est Glom Filt Rate - Afr Amer 27 mL/min (>60); Glucose 78 mg/dL (74-106); Potassium 5.3 mmol/L (3.5-5.1); Sodium Level 137 mmol/L (136-145)
== END ==
PROVIDERS: PCP Internal Medicine; Referring Provider Nurse Practitioner Family; Visit Provider Nurse Practitioner Family
DX: I11.0 Hypertensive heart disease with heart failure (principal); I50.22 Chronic systolic (congestive) heart failure; I25.119 Atherosclerotic heart disease of native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 with unspecified angina pectoris; I48.0 Paroxysmal atrial fibrillation; I42.9 Cardiomyopathy, unspecified
CPT/HCPCS: 36415; 80048

== ENCOUNTER → 2019-10-18 13:31 | Outpatient (CLI) | payer MEDICARE, SELFPAY ==
[2019-10-01 13:31] VITALS: BMI 25.2
[2019-10-18 16:09] LABS: Absolute Lymphocyte Count 0.73 X10^3/uL (0.83-4.51); Absolute Neutrophil Count 6.5 X10^3/uL (2.0-7.7); Basophil# 0.06 X10^3/uL; Basophil% 0.7 % (0-1); Eosinophil# 0.47 X10^3/uL; Eosinophils% 5.5 % (0-5); Hematocrit 37.2 % (37-47); Hemoglobin 11.3 g/dL (12.0-15.0); Lymphocyte # 0.73 X10^3/ul (4.0); Lymphocyte % 8.5 % (19-41); Mean Corp Hgb Conc 30.4 g/dL (32-36); Mean Corpuscular Hgb 28.1 pg (27.0-32.0); Mean Corpuscular Volume 92.5 fL (81-99); Mean Platelet Vol. 9.9 fl (6.2-12.0); Monocyte# 0.77 X10^3/uL; NRBC Flagged by Analyzer 0 % (0-5); Neutrophil # 6.47 X10^3/uL (2.7-7.7); Neutrophil % 75.8 % (47-70); Platelet Count 232 K/mm3 (150-450); RBC Distribution Width CV 19.3 % (11.6-14.6); RBC Distribution Width SD 64.2 fl (35.1-43.9); Red Blood Count 4.02 M/mm3 (4.2-5.4); White Blood Count 8.5 K/mm3 (4.4-11.0)
[2019-10-18 16:31] LABS: Erythrocyte Sedimentation Rate 61 mm/hr (0-30)
[2019-10-18 16:44] LABS: ALB/GLOB Ratio 0.8 RATIO (0.9-2.4); AST(SGOT) 32 U/L (15-37); Alanine Aminotransfer ALT/SGPT 21 U/L (13-56); Albumin, Serum 3.9 g/dL (3.2-5.0); Alkaline Phosphatase 99 U/L (45-117); Anion Gap 8 (5-15); BUN 44 mg/dL (7-18); BUN/Creat Ratio 26.8 RATIO (10-20); Calcium,Total 9.3 mg/dL (8.5-10.1); Chloride 103 mmol/L (98-107); Creatinine, Serum 1.64 mg/dL (0.55-1.02); EST Glomerular Filtration Rate 32 mL/min (>60); Est Glom Filt Rate - Afr Amer 39 mL/min (>60); Globulin 4.8 g/dL (2.2-4.2); Glucose 87 mg/dL (74-106); Potassium 4.5 mmol/L (3.5-5.1); Protein, Total 8.7 g/dL (6.4-8.2); Sodium Level 138 mmol/L (136-145)
== END ==
PROVIDERS: PCP Internal Medicine; Referring Provider Internal Medicine; Visit Provider Internal Medicine
DX: N17.9 Acute kidney failure, unspecified (principal); T82.6XXD Infection and inflammatory reaction due to cardiac valve prosthesis, subsequent encounter; I38 Endocarditis, valve unspecified
CPT/HCPCS: 36415; 80053; 85025; 85652

== ENCOUNTER → 2020-02-17 13:38 | Outpatient (CLI) | payer MEDICARE, SELFPAY ==
[2020-02-02 10:56] VITALS: BMI 25.2
--- NOTE | 2020-02-17 13:39 | ECHOD_ITS ---
Reason For Study: MV DISORDER Procedure This was a 2D Doppler, Color Flow transthoracic echocardiogram. Contrast injection was performed. Exam performed in department. Left Ventricle Severely dilated left ventricle. Severe global left ventricular systolic dysfunction. The estimated ejection fraction is 15 %. Unable to assess diastolic dysfunction. Right Ventricle Moderately dilated right ventricle. ICD or pacer leads identified within the right ventricle. Moderate global right ventricular systolic dysfunction. Atria The left atrium is moderately enlarged. The right atrium is moderately enlarged. ICD or pacer leads identified within the right atrium. No doppler evidence for ASD. Mitral Valve Stable appearing bioprosthetic mitral valve apparatus. Moderate (2+) transvalvular insufficiency of the mitral valve. Tricuspid Valve Normal tricuspid valve. Moderate (2+) tricuspid valve insufficiency. Right ventricular systolic pressure estimated to be 48 mmHg. Aortic Valve Trisinus/trileaflet aortic valve. Normal aortic valve. Pulmonic Valve The pulmonic valve is not well visualized. Mild (1+) pulmonic valve insufficiency. Great Vessels Normal sized aortic root. Pericardium/Pleural No pericardial effusion. MMode/2D Measurements & Calculations LVIDd: 7.1 cm IVSd: 0.86 cm Ao root diam: 3.2 cm LVIDs: 6.2 cm LVPWd: 0.96 cm RVDd: 5.0 cm FS: 12.5 % LAV(MOD-bp): 79.5 ml EDV(MOD-sp4): 149.1 ml EDV(MOD-sp2): 147.3 ml LAV(MOD-bp) Indexed: 40.3 ml/m2 ESV(MOD-sp4): 116.2 ml EF(MOD-sp2): 19.7 % LAV(MOD-sp2): 73.7 ml EF(MOD-sp4): 22.1 % LAV(MOD-sp4): 76.7 ml SV(MOD-sp4): 32.9 ml SV(MOD-sp2): 29.0 ml LA A2C-A/L_phl: 25.2 cm2 LA dimension(2D): 4.9 cm RA A4 area: 20.2 cm2 Doppler Measurements & Calculations MV V2 max: 195.6 cm/sec Ao V2 max: 89.7 cm/sec LV V1 max: 61.7 cm/sec MV max P.3 mmHg Ao max P.2 mmHg LV V1 max P.5 mmHg MV V2 mean: 84.5 cm/sec MV mean P.8 mmHg MV V2 VTI: 43.4 cm PA V2 max: 63.1 cm/sec TR max shanice: 336.4 cm/sec TR max P.5 mmHg Interpretation Summary Severely dilated left ventricle. Severe global left ventricular systolic dysfunction. The estimated ejection fraction is 15 %. Moderately dilated right ventricle. Moderate global right ventricular systolic dysfunction. The left atrium is moderately enlarged. The right atrium is moderately enlarged. Stable appearing bioprosthetic mitral valve apparatus. Moderate (2+) transvalvular insufficiency of the mitral valve. Moderate (2+) tricuspid valve insufficiency. Mild (1+) pulmonic valve insufficiency. Right ventricular systolic pressure estimated to be 48 mmHg. Unable to assess diastolic dysfunction. ICD or pacer leads identified within the right atrium ICD or pacer leads identified within the right ventricle. Comment: Compared to the previous transthoracic echocardiogram from 08-23-2019 the previous mobile echodensity associated with the mitral valve apparatus is not visualized at this time. Ordering Physician: Sushil Blair Referring Physician: Minerva Martin Performed By: Frida Mckeon RDCS, RVT
== END ==
PROVIDERS: PCP Internal Medicine; Referring Provider Internal Medicine Cardiovascular Disease; Visit Provider Internal Medicine Cardiovascular Disease
DX: I33.0 Acute and subacute infective endocarditis (principal); I11.0 Hypertensive heart disease with heart failure; I50.22 Chronic systolic (congestive) heart failure; I42.0 Dilated cardiomyopathy; I25.10 Atherosclerotic heart disease of native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 without angina pectoris; I48.0 Paroxysmal atrial fibrillation; Z95.3 Presence of xenogenic heart valve
CPT/HCPCS: 93306

== ENCOUNTER → 2020-11-07 14:04 | Outpatient (CLI) | payer MEDICARE, SELFPAY ==
[2020-09-04 10:59] VITALS: BMI 25.5
--- NOTE | 2020-11-07 14:07 | BI_ITS ---
MAMMOGRAPHY - BILATERAL SCREENING REASON FOR EXAM: Female, 80 years old. Routine annual screening examination. PERTINENT HISTORY: Sister with breast cancer. TECHNIQUE: Digital bilateral breast alyse (3D mammographic acquisition) in the CC and MLO projections. 2-D mediolateral oblique (MLO) and craniocaudad (CC) views of both breasts were obtained. CAD: Full Field Digital Mammography with Computer Added Detection was performed. COMPARISON: Comparison is made with prior study dated 10/14/2017 and 07/09/2012. FINDINGS: Breast Composition: There are scattered areas of fibroglandular density. There are no dominant masses or suspicious calcifications. A battery pack from a pacemaker is seen in the left axillary region. No other significant abnormalities are identified. There has been no significant change since the prior study. BI/SCRN MAMM (CAD)W/ALYSE BILAT IMPRESSION: Stable bilateral screening mammogram. Yearly follow-up mammogram recommended. (A) ASSESSMENT CATEGORY: BIRADS Category 2: Benign. A letter regarding these results will be sent to the patient by the facility within 30 days. Approximately 10% of breast cancers are not detected by mammography. A normal mammogram should not delay biopsy of a clinically suspicious abnormality. [id number] Electronically Signed: Ed Fink MD at 15:10 EDT , Service support ,
--- NOTE | 2020-11-07 14:31 | BD_ITS ---
STUDY: DUAL ENERGY X-RAY ABSORPTIOMETRY / DXA REASON FOR EXAM: Female, 80 years old. M810. The patient is postmenopausal. Loss of height. TECHNIQUE: Bone Mineral Density (BMD) measurements of both forearms were obtained. COMPARISON: Comparison is made with prior study dated 09/26/2016. FINDINGS: Right Forearm: g/cm2 (0.638) / T-score (-2.8) / Z-score (-0.2) Left Forearm: g/cm2 (0.672) / T-score (-2.4) / Z-score (0.2) BD/Dexa Bone Density/Append Skel IMPRESSION: The patient is considered osteoporotic as outlined below according to World Jules Organization (WHO) criteria with a high fracture risk. There has been worsening of bone density since the previous examination. Reference Information: The T-score is the number of standard deviations above or below the standard which is normal for young adults at their peak bone mineral density. The World Health Organization (WHO) interprets the T-scores as follows: Above -1 Normal bone density Between -1 and -2.5 Osteopenia Equal to / or below -2.5 Osteoporosis As a practical clinical guideline, osteopenia may be graded as follows: Mild -1 through -1.5 Moderate -1.6 through -2.0 Severe -2.1 through -2.4 The Z-score is the number of standard deviations above or below age-matched controls. A Z-score of less than -1.5 would be considered abnormal. References: 1. NIH Osteoporosis and Related Bone Diseases www osteo.org 2. International Society for Clinical Densitometry www iscd.org 3. National Osteoporosis Foundation www nof.org Electronically Signed: Ed Fink MD at 15:09 EDT , Service support ,
== END ==
PROVIDERS: PCP Internal Medicine; Referring Provider Internal Medicine; Visit Provider Internal Medicine
DX: Z12.31 Encounter for screening mammogram for malignant neoplasm of breast (principal); M81.0 Age-related osteoporosis without current pathological fracture
CPT/HCPCS: 77063; 77067; 77081

== ENCOUNTER → 2021-01-24 09:31 | Outpatient (CLI) | payer MEDICARE, SELFPAY ==
[2020-11-08 12:42] VITALS: BMI 25.9
[2021-01-24] MEDS: Zoledronic Acid 5 MG 100 ML 400 MG IV (09:39)
[2021-01-24] MEDS: 0.9% NaCl Peripheral Flush Adult/Peds IV (09:54)
[2021-01-24 09:59] VITALS: BP 86/50; PULSE 58; RESP 18; O2SAT 94; BMI 25.9
[2021-01-24 10:24] VITALS: BP 99/51; PULSE 60; RESP 16; O2SAT 97
== END ==
PROVIDERS: PCP Internal Medicine; Referring Provider Internal Medicine; Visit Provider Internal Medicine
DX: M81.0 Age-related osteoporosis without current pathological fracture (principal)
CPT/HCPCS: 96365; A4216; J3489

== ENCOUNTER 2021-02-20 11:08 | Observation (INO) | payer MEDICARE, SELFPAY ==
[2021-01-24 09:59] VITALS: BMI 25.9
[2021-02-20] VITALS (17 sets, daily range): BP systolic 84–123; BP diastolic 58–80; PULSE 44–67; RESP 13–23; TEMP 35.8–37.1; O2SAT 95–98; BMI 24.8; BMI 25.3
--- NOTE | 2021-02-20 11:24 | RAD_ITS ---
STUDY: X-RAY - RIGHT KNEE REASON FOR EXAM: Female, 81 years old. Injury TECHNIQUE: 4 view(s) of the knee. COMPARISON: Comparison is made with prior examination dated 06/18/2018. FINDINGS: The patient is status post bilateral unicompartmental arthroplasty. Chondrocalcinosis of the medial meniscus. Normal visualized proximal tibia and fibula. Normal proximal tibiofibular articulation. Normal medial femorotibial compartment. Normal lateral femorotibial compartment. There is mild degenerative arthrosis of the patellofemoral articulation. The soft tissue structures are unremarkable. RAD/Knee 4 or More Views IMPRESSION: Status post lateral unicompartmental arthroplasty. Chondrocalcinosis of the medial meniscus. Electronically Signed: Ed Fink MD at 13:22 EDT , Service support ,
--- NOTE | 2021-02-20 11:24 | EKG12_ITS ---
Test Reason : Blood Pressure : / mmHG Vent. Rate : 048 BPM Atrial Rate : 048 BPM P-R Int : 264 ms QRS Dur : 140 ms QT Int : 516 ms P-R-T Axes : 110 -17 160 degrees QTc Int : 460 ms Sinus bradycardia with 1st degree A-V block Left ventricular hypertrophy with QRS widening and repolarization abnormality Abnormal ECG Confirmed by ADAM TIRADO, LAUREN ([id number]), multimedia editor JAMAAL SAHNI ([id number]) on 02/21/2021 12:43:59 PM Referred By: Confirmed By:LAUREN MEDINA MD
--- NOTE | 2021-02-20 11:27 | EX.ED.DYSGE1 ---
HPI History of Present Illness Chief Complaint: Syncope Informant: patient, spouse/S.O. and PCP Onset/Context/Timing Onset: Today (JPTA) Context: Sudden Onset Quality: lightheaded --> syncope Current Severity: Mild Maximum Severity: Severe Associated Symptoms Associated Symptoms: R knee injury w/ laceration, head injury Narrative Narrative: Patient became lightheaded today, and as results became syncopal, falling to the ground injuring her right knee and her head. She has pain in both of these areas as well as a laceration to her right knee. She denies any recent illness or changes in her medication. Has history of heart disease and has a pacer defibrillator. She is also on aspirin, Eliquis. [facility] Medical History (Updated 02/20/21 @ 14:[address] 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 DVT (deep venous thrombosis) Hyperlipemia Hypothyroidism Implantable cardioverter-defibrillator (ICD) in situ correction current use of 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 Menopausal osteoporosis Nonrheumatic mitral (valve) prolapse URMILA (obstructive sleep apnea) Paroxysmal atrial fibrillation Pre-syncope Prediabetes Pulmonary HTN Restrictive lung disease Spondylosis of cervical joint Stroke Home Medications multivitamin with folic acid 1 tab PO DAILY 11/16/15 [History Last Taken 08/19/19] albuterol sulfate 90 mcg/actuation aerosol inhaler 2 puff INHALATION BID PRN 09/10/17 [History Last Taken 08/18/19] pravastatin 40 mg tablet 40 mg PO QHS tab 09/11/17 [History Last Taken 08/18/19] levothyroxine 88 mcg PO QHS 06/22/18 [History Last Taken 08/18/19] gabapentin 100 mg capsule 100 mg PO QHS cap 07/15/18 [History Last Taken 08/18/19] aspirin 81 mg PO DAILY@0800 09/07/18 [History Last Taken 08/19/19] amitriptyline 50 mg tablet 50 mg PO QHS 10/15/18 [History Last Taken 08/18/19] budesonide 0.5 mg INHALATION BID PRN 11/09/18 [History Last Taken 08/18/19] citalopram 20 mg PO DAILY 08/13/19 [History Last Taken 08/19/19] brimonidine 1 drp EACH EYE BID 08/24/19 [History Last Taken Unknown] amiodarone 200 mg PO DAILY tab 09/28/19 [Rx Last Taken Unknown] magnesium oxide 400 mg (241.3 mg magnesium) tablet 400 mg PO .QODAY #30 tab 12/08/19 [Rx Last Taken Unknown] amoxicillin 500 mg tablet 500 mg PO DAILY tab 02/02/20 [History Last Taken Unknown] fluticasone propionate 50 mcg/actuation nasal spray,suspension 2 spray INTRANASAL DAILY PRN 02/02/20 [History Last Taken Unknown] furosemide 40 mg tablet 60 mg PO BID tab 02/02/20 [History Last Taken Unknown] lidocaine 5 % topical patch 1 patch TOPICAL DAILY@1100 PRN patch 02/02/20 [History Last Taken Unknown] carvedilol 6.25 mg tablet 12.5 mg PO BID tab 06/05/20 [History Last Taken Unknown] apixaban 2.5 mg tablet 2.5 mg PO BID 09/04/20 [History Last Taken Unknown] ascorbate calcium (vitamin C) 500 mg tablet 500 mg PO DAILY 11/08/20 [History Last Taken Unknown] hydrocortisone 5 mg tablet 5 mg PO .COMPLEX 11/08/20 [History Last Taken Unknown] omega-3 fatty acids 1,000 mg capsule 1,000 mg PO DAILY 11/08/20 [History Last Taken Unknown] vitamin E mixed 1,000 unit capsule 1,000 unit PO DAILY 11/08/20 [History Last Taken Unknown] potassium chloride 20 mEq tablet,extended release 20 meq PO .every third day #30 tab 02/05/21 [Rx Last Taken Unknown] Allergy/AdvReac Type Severity Reaction Status Date / Time levofloxacin [Levofloxacin] Allergy Hives Verified 02/20/21 11:09 sacubitril [From Entresto] Allergy itching Verified 02/20/21 11:09 valsartan [From Entresto] Allergy itching Verified 02/20/21 11:09 warfarin [From Coumadin] Allergy Other Verified 02/20/21 11:09 torsemide [From Demadex] AdvReac Intermediate Rash Verified 02/20/21 11:09 Family History Father CVA (cerebral vascular accident) Mother Cancer bone Sister Cancer bone Diabetes Surgical History AICD (automatic cardioverter/defibrillator) present History of bilateral hip replacements History of bilateral knee replacement History of cataract surgery History of hysterectomy History of mitral valve replacement with porcine valve Social History second hand exposure: No alcohol intake: never substance use type: does not use caffeine: No ROS ROS ED Constitutional Constitutional ED: Reports as per HPI, malaise and weakness; Denies chills or fever(s) Eyes Eyes: Denies change in vision or diplopia ENT ENT ED: Denies rhinorrhea or sore throat Cardiovascular Cardiovascular: Denies chest pain or palpitations Respiratory/Chest Respiratory/Chest: Denies cough or dyspnea Gastrointestinal Gastrointestinal: Denies abdominal pain, diarrhea, nausea or vomiting Genitourinary Genitourinary ED: Denies dysuria or hematuria Musculoskeletal Musculoskeletal: Reports extremity pain; Denies back pain or neck pain Integumentary Reports laceration; Denies abscess or rash Neurologic Neurologic: Reports headache(s); Denies paresthesias or weakness Psychiatric Psychiatric: Denies anxiety or suicidal thoughts EXAM Physical Exam Const Vital Signs: 02/20/21 11:09 02/20/21 11:45 02/20/21 11:50 Temperature 96.5 F L Temperature Source Temporal Pulse Rate 44 L 54 L 56 L Respiratory Rate 16 23 H Respiratory Effort Respiratory Depth Respiratory Pattern Blood Pressure 98/59 L 84/60 L 94/60 Blood Pressure Mean 72 68 71 Pulse Ox 96 95 Oxygen Delivery Method Room Air Nasal Cannula Oxygen Flow Rate (L/min) 4 02/20/21 11:51 02/20/21 11:54 02/20/21 12:14 Temperature Temperature Source Pulse Rate 58 L 59 L Respiratory Rate 23 H 16 Respiratory Effort Normal Non-Labored Respiratory Depth Respiratory Pattern Normal Blood Pressure 101/61 96/67 Blood Pressure Mean 74 76 Pulse Ox 96 96 Oxygen Delivery Method Nasal Cannula Nasal Cannula Oxygen Flow Rate (L/min) 4 4 02/20/21 12:41 02/20/21 13:00 02/20/21 13:01 Temperature Temperature Source Pulse Rate 64 56 L Respiratory Rate 16 17 Respiratory Effort Normal Non-Labored Respiratory Depth Normal Respiratory Pattern Normal Blood Pressure 102/58 L 94/80 Blood Pressure Mean 72 84 Pulse Ox 98 97 Oxygen Delivery Method Nasal Cannula Room Air Nasal Cannula Oxygen Flow Rate (L/min) 4 4 Positive well nourished and well developed General Appearance ED: well developed and NAD HEENT Reports TM's normal bilaterally and moist mucous membranes HEENT Narrative: Small contusion/hematoma at the right lateral edge of the right superior orbital brim without crepitance or deformity. No zygomatic tenderness or midface instability or other signs of trauma to the head. normocephalic, trauma and contusion; Negative for Benoit's sign, laceration or palpable skull fracture Eyes PERRL and EOMs intact bilaterally Neck full ROM and supple Resp normal respiratory effort and clear to auscultation bilaterally Cardio regular rate, regular rhythm and no murmurs Rate: bradycardia GI non-tender and non-distended Auscultation: normoactive bowel sounds Palpation: soft Back/Spine no CVA tenderness General Back: other FROM Extremity Extremity Narrative: Tender anterior right knee. Tender right ring finger with associated wound distally and contusion DIPJ and limited range of motion. General Extremety ED: Negative for edema, pulses abnormal or tenderness General Extremity: Negative for edema or pulses abnormal Neuro oriented x3, CN's II-XII intact bilaterally and no sensory deficits noted Neuro Narrative: GCS 15 Sensorium / Orientation: awake and alert Motor Exam: strength 5/5 throughout Skin no rashes or lesions noted Skin Narrative: 5 cm full-thickness curvilinear clean appearing laceration to the dorsum of the right knee over the patella, half of the laceration distally appears to involve the scar of the skin graft which is medial, but the skin graft itself is intact. Partial-thickness skin tear to the lateral aspect of the right ring finger, as well as a more superficial abrasion to the right fifth finger and left index finger. Trauma: laceration MDM MDM MDM Narrative Medical decision making narrative: Patient maintaining level of alertness with heart rate in the 40s, EKG showing a first-degree AV block. She then went down into the 30s, during this on telemetry she was pacing, the pacer then stopped as she increased her heart rate to around 60 before we could intervene. She did not lose consciousness. Patient has a [employer] device. I discussed with Dr. Huang, he sent someone from the office over to query the device, it appears to be working as programmed without any major issues. Given all of that, we will admit her to the hospital for further evaluation, testing, medication adjustment. Of note her high-sensitivity troponin is slightly elevated at 84, her EKG shows no signs of acute injury. Also, her right knee x-ray 4 view and right hand x-ray 3 view on my interpretation both show no acute fractures. Her chest x-ray 1 view on my interpretation shows nothing acute, she is a little sore on the right ribs, there is no pneumothorax or obvious fracture. Her knee laceration was repaired, see the procedure note. It was irrigated well does not appear to be contaminated. It was closed well and I think fairly straightforward. The wounds on her right ring finger in her left index finger are partial-thickness and do not require suturing, they were cleansed and dressed by nursing. Lab Data Attestation: I reviewed the patient's lab results. Labs: Laboratory Results - last 24 hr 02/20/21 02/20/21 11:45 11:45 WBC 17.7 H RBC 4.17 L Hgb 13.6 Hct 42.1 MCV 101.0 H MCH 32.6 H MCHC 32.3 RDW Std Deviation 59.3 H RDW Coeff of Jackie 15.9 H Plt Count 282 MPV 9.7 Immature Gran % (Auto) 2.800 H Neut % (Auto) 79.6 H Lymph % (Auto) 7.5 L Alexander % (Auto) 7.8 Eos % (Auto) 2.0 Baso % (Auto) 0.3 Absolute Neuts (auto) 14.1 H Absolute Lymphs (auto) 1.32 Nucleated RBC % 0 Sodium 137 Potassium 3.7 Chloride 102 Carbon Dioxide 29.0 Anion Gap 6 BUN 63 H Creatinine 2.41 H Estim Creat Clear Calc 20.47 Est GFR (MDRD) Af Amer 25 L Est GFR (MDRD) Non-Af 21 L BUN/Creatinine Ratio 26.1 H Glucose 105 Calcium 9.0 Troponin I High Sens 84.0 H* Radiography Chest X-Ray - ED: 1 View, Read by ED Physician, No Acute Disease, Chronic Changes and Cardiomegaly Diagnostic Testing: Radiology Impression Knee X-Ray 02/20/21 11:24 IMPRESSION: Status post lateral unicompartmental arthroplasty. Chondrocalcinosis of the medial meniscus. Electronically Signed: Ed Fink MD at 13:22 EDT , Service support , Brain CT 02/20/21 12:00 IMPRESSION: Chronic involutional changes of the brain. Electronically Signed: Ed Fink MD at 12:19 EDT , Service support , Chest X-Ray 02/20/21 12:55 IMPRESSION: No acute abnormality is present. Electronically Signed: Ed Fink MD at 13:20 EDT , Service support , Interpreted by ED physician: 4 view x-ray right knee no acute fractures or dislocations EKG Initial EKG: Interpretation: Sinus Rhythm, No Acute Injury Pattern and AV Block (First-degree) Procedures Lacerations R knee: Length: 5 cm Depth: Sub Q Shape: Linear (curvilinear) Prep: Sterile Conditions and Chlorhexadine Laceration repair: Irrigated, Lidocaine with epi (3cc) and Local Irrigated (ml): 60 Number of Sutures/[place]: 4 Suture Information: Ethilon, Horizontal, Mattress and 4-0 Discharge Plan Dx/Rx/DC Orders Clinical Impression: Syncope, Symptomatic bradycardia, Laceration of knee, right, Closed head injury Disposition Disposition: Acute Care Hospital [facility]
[2021-02-20 11:51] LABS: Absolute Lymphocyte Count 1.32 X10^3/uL (0.83-4.51); Absolute Neutrophil Count 14.1 X10^3/uL (2.0-7.7); Basophil# 0.06 X10^3/uL; Basophil% 0.3 % (0-1); Eosinophil# 0.35 X10^3/uL; Hematocrit 42.1 % (37-47); Hemoglobin 13.6 g/dL (12.0-15.0); Lymphocyte # 1.32 X10^3/ul (0.83-4.51); Lymphocyte % 7.5 % (19-41); Mean Corp Hgb Conc 32.3 g/dL (32-36); Mean Corpuscular Hgb 32.6 pg (27.0-32.0); Mean Platelet Vol. 9.7 fl (6.2-12.0); Monocyte# 1.38 X10^3/uL; Monocyte% 7.8 % (0-10); NRBC Flagged by Analyzer 0 % (0-5); Neutrophil # 14.09 X10^3/uL (2.7-7.7); Neutrophil % 79.6 % (47-70); Platelet Count 282 K/mm3 (150-450); RBC Distribution Width CV 15.9 % (11.6-14.6); RBC Distribution Width SD 59.3 fl (35.1-43.9); Red Blood Count 4.17 M/mm3 (4.2-5.4); White Blood Count 17.7 K/mm3 (4.4-11.0)
--- NOTE | 2021-02-20 12:00 | CT_ITS ---
STUDY: CT BRAIN WITHOUT CONTRAST REASON FOR EXAM: Female, 81 years old. Follow due to syncopal episode. RADIATION DOSAGE (If Supplied By Facility): CTDIvol = ( 44.99 ) mGy, DLP = ( 796.11 ) mGycm TECHNIQUE: Transaxial CT imaging of the brain was performed without administration of intravenous contrast material. Individualized dose optimization techniques were used for this CT. COMPARISON: Comparison is made with prior study dated 02/17/2020. FINDINGS: Normal soft tissue structures. Normal calvarium. There is mild cerebral atrophy with widening of the extra-axial spaces and ventricular dilatation. There are areas of decreased attenuation within the white matter tracts of the supratentorial brain, consistent with microvascular disease changes. Focal area of encephalomalacia is seen in the left posterior parietal occipital lobe. Normal basal ganglia and thalami. Normal brainstem. Normal cerebellum. There is no intracranial hemorrhage. There are no findings of an acute ischemic infarction. Normal visualized paranasal sinuses. CT/Brain/Head without Contrast IMPRESSION: Chronic involutional changes of the brain. Electronically Signed: Ed Fink MD at 12:19 EDT , Service support ,
[2021-02-20 12:14] LABS: Anion Gap 6 (5-15); BUN 63 mg/dL (7-18); BUN/Creat Ratio 26.1 RATIO (10-20); Chloride 102 mmol/L (98-107); Creatinine, Serum 2.41 mg/dL (0.55-1.02); EST Glomerular Filtration Rate 21 mL/min (>60); Est Glom Filt Rate - Afr Amer 25 mL/min (>60); Estimated Creatinine Clearance 20.47 ml/min; Glucose 105 mg/dL (74-106); Potassium 3.7 mmol/L (3.5-5.1); Sodium Level 137 mmol/L (136-145)
--- NOTE | 2021-02-20 12:55 | RAD_ITS ---
STUDY: X-RAY CHEST REASON FOR EXAM: Female, 81 years old. Fall due to dizziness. TECHNIQUE: Single AP portable view of the chest. COMPARISON: Comparison is made with prior study dated 09/17/2019. FINDINGS: EKG electrodes are seen. The lungs are clear and expanded. There is no demonstrated pleural abnormality. Sternal cerclage wires and vascular clips are present from a prior sternotomy and coronary artery bypass graft procedure (CABG). A left-sided dual-chamber pacemaker seen. Normal mediastinum and juana. Normal visualized pulmonary arteries. Normal visualized aortic arch and descending thoracic aorta. Normal visualized thoracic spine. Normal visualized ribs, clavicles, and shoulders. There is no demonstrated abnormality of the visualized soft tissue structures of the upper abdomen. RAD/Chest 1 View (Portable) IMPRESSION: No acute abnormality is present. Electronically Signed: Ed Fink MD at 13:20 EDT , Service support ,
--- NOTE | 2021-02-20 13:09 | NURSING ---
DR NEETA GRAF
--- NOTE | 2021-02-20 13:20 | PCM.HP.STD ---
HPI - General General Date of Admission: 02/20/21 Date of Service: 02/20/21 Chief Complaint: Fall following episode of lightheadedness HPI Narrative IRIS DAVENPORT, is a 81 F who presents following a fall. Patient states he was getting out of the car when he became lightheaded and dizzy and subsequently fell. Patient did bruise the right knee and sustained a bruise over the right eyelid. Patient was brought to the emergency department as a result. CT of the head obtained in the ED was negative for intracranial bleed. Patient was however found to be bradycardic. Decision was made to admit patient for subsequent inpatient management. Patient has an underlying pacemaker which was interrogated in the ED and was found to be functioning as programmed. [facility] Medical History (Updated 02/20/21 @ 14:[address] Rufino Champagne MD) Adrenal cortex insufficiency Arrhythmia, ventricular Atherosclerotic heart disease of [place] coronary artery with angina pectoris CAD (coronary artery disease) Cardiac dysrhythmia, unspecified Cardiomyopathy Chronic systolic (congestive) heart failure 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 DVT (deep venous thrombosis) Hyperlipemia Hypothyroidism Implantable cardioverter-defibrillator (ICD) in situ senior care current use of 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 Menopausal osteoporosis Nonrheumatic mitral (valve) prolapse URMILA (obstructive sleep apnea) Paroxysmal atrial fibrillation Pre-syncope Prediabetes Pulmonary HTN Restrictive lung disease Spondylosis of cervical joint Stroke Home Medications multivitamin with folic acid 1 tab PO DAILY 11/16/15 [History Last Taken 08/19/19] albuterol sulfate 90 mcg/actuation aerosol inhaler 2 puff INHALATION BID PRN 09/10/17 [History Last Taken 08/18/19] pravastatin 40 mg tablet 40 mg PO QHS tab 09/11/17 [History Last Taken 08/18/19] levothyroxine 88 mcg PO QHS 06/22/18 [History Last Taken 08/18/19] gabapentin 100 mg capsule 100 mg PO QHS cap 07/15/18 [History Last Taken 08/18/19] aspirin 81 mg PO DAILY@0800 09/07/18 [History Last Taken 08/19/19] amitriptyline 50 mg tablet 50 mg PO QHS 10/15/18 [History Last Taken 08/18/19] budesonide 0.5 mg INHALATION BID PRN 11/09/18 [History Last Taken 08/18/19] citalopram 20 mg PO DAILY 08/13/19 [History Last Taken 08/19/19] brimonidine 1 drp EACH EYE BID 08/24/19 [History Last Taken Unknown] amiodarone 200 mg PO DAILY tab 09/28/19 [Rx Last Taken Unknown] magnesium oxide 400 mg (241.3 mg magnesium) tablet 400 mg PO .QODAY #30 tab 12/08/19 [Rx Last Taken Unknown] amoxicillin 500 mg tablet 500 mg PO DAILY tab 02/02/20 [History Last Taken Unknown] fluticasone propionate 50 mcg/actuation nasal spray,suspension 2 spray INTRANASAL DAILY PRN 02/02/20 [History Last Taken Unknown] furosemide 40 mg tablet 60 mg PO BID tab 02/02/20 [History Last Taken Unknown] lidocaine 5 % topical patch 1 patch TOPICAL DAILY@1100 PRN patch 02/02/20 [History Last Taken Unknown] carvedilol 6.25 mg tablet 12.5 mg PO BID tab 06/05/20 [History Last Taken Unknown] apixaban 2.5 mg tablet 2.5 mg PO BID 09/04/20 [History Last Taken Unknown] ascorbate calcium (vitamin C) 500 mg tablet 500 mg PO DAILY 11/08/20 [History Last Taken Unknown] hydrocortisone 5 mg tablet 5 mg PO .COMPLEX 11/08/20 [History Last Taken Unknown] omega-3 fatty acids 1,000 mg capsule 1,000 mg PO DAILY 11/08/20 [History Last Taken Unknown] vitamin E mixed 1,000 unit capsule 1,000 unit PO DAILY 11/08/20 [History Last Taken Unknown] potassium chloride 20 mEq tablet,extended release 20 meq PO .every third day #30 tab 02/05/21 [Rx Last Taken Unknown] Allergy/AdvReac Type Severity Reaction Status Date / Time levofloxacin [Levofloxacin] Allergy Hives Verified 02/20/21 11:09 sacubitril [From Entresto] Allergy itching Verified 02/20/21 11:09 valsartan [From Entresto] Allergy itching Verified 02/20/21 11:09 warfarin [From Coumadin] Allergy Other Verified 02/20/21 11:09 torsemide [From Demadex] AdvReac Intermediate Rash Verified 02/20/21 11:09 Family History Father CVA (cerebral vascular accident) Mother Cancer bone Sister Cancer bone Diabetes Surgical History AICD (automatic cardioverter/defibrillator) present History of bilateral hip replacements History of bilateral knee replacement History of cataract surgery History of hysterectomy History of mitral valve replacement with porcine valve Social History second hand exposure: No alcohol intake: never substance use type: does not use caffeine: No ROS ROS Narrative GENERAL: denies fever, chills, night sweats, HEENT: denies headache, sinus congestion, RESPIRATORY: denies cough, sputum production, CARDIAC: denies chest pain, palpitations, orthopnea, GASTROINTESTINAL: denies abdominal pain, nausea, GENITOURINARY: denies dysuria, urgency, frequency, EXTREMITY: denies swelling MUSCULOSKELETAL: denies current joint pain or tenderness NEUROLOGIC: denies focal numbness, weakness, tingling HEMATOLOGIC: easy bruising INTEGUMENT: denies rashes PSYCHIATRIC: denies suicidal or homicidal ideation Vital Signs Vital Signs Vital Signs: 02/20/21 11:09 02/20/21 11:45 02/20/21 11:50 Temperature 96.5 F L Temperature Source Temporal Pulse Rate 44 L 54 L 56 L Respiratory Rate 16 23 H Respiratory Effort Respiratory Pattern Blood Pressure 98/59 L 84/60 L 94/60 Blood Pressure Mean 72 68 71 Pulse Ox 96 95 Oxygen Delivery Method Room Air Nasal Cannula Oxygen Flow Rate (L/min) 4 02/20/21 11:51 02/20/21 11:54 02/20/21 12:14 Temperature Temperature Source Pulse Rate 58 L 59 L Respiratory Rate 23 H 16 Respiratory Effort Normal Non-Labored Respiratory Pattern Normal Blood Pressure 101/61 96/67 Blood Pressure Mean 74 76 Pulse Ox 96 96 Oxygen Delivery Method Nasal Cannula Nasal Cannula Oxygen Flow Rate (L/min) 4 4 02/20/21 12:41 02/20/21 13:01 Temperature Temperature Source Pulse Rate 64 56 L Respiratory Rate 16 17 Respiratory Effort Respiratory Pattern Blood Pressure 102/58 L 94/80 Blood Pressure Mean 72 84 Pulse Ox 98 97 Oxygen Delivery Method Nasal Cannula Nasal Cannula Oxygen Flow Rate (L/min) 4 4 Weight Weight: 78.471 kg Body Mass Index (BMI) 24.8 Physical Exam Narrative GENERAL: cooperative HEENT: Bruising over the right eyelid EYES; Anicteric, Normal Conjunctiva NECK; supple, normal thyroid, RESPIRATORY: Diminished to auscultation CARDIOVASCULAR: Regular S1 S2, GI: soft, normoactive bowel sounds, : No Renal angle tenderness; EXTREMITIES: Skin laceration over the right knee MUSCULOSKELETAL: no muscle waisting NEURO: Awake; no lateralizing signs. SKIN: As described above PSYCH; Flat affect Results Lab / Micro Data Result Diagrams: 02/20/21 11:45 02/20/21 11:45 Labs: Laboratory Results - last 24 hr 02/20/21 11:45: WBC 17.7 H, RBC 4.17 L, Hgb 13.6, Hct 42.1, MCV 101.0 H, MCH 32.6 H, MCHC 32.3, RDW Std Deviation 59.3 H, RDW Coeff of Jackie 15.9 H, Plt Count 282, MPV 9.7, Immature Gran % (Auto) 2.800 H, Neut % (Auto) 79.6 H, Lymph % (Auto) 7.5 L, Hitchcock % (Auto) 7.8, Eos % (Auto) 2.0, Baso % (Auto) 0.3, Absolute Neuts (auto) 14.1 H, Absolute Lymphs (auto) 1.32, Nucleated RBC % 0 02/20/21 11:45: Sodium 137, Potassium 3.7, Chloride 102, Carbon Dioxide 29.0, Anion Gap 6, BUN 63 H, Creatinine 2.41 H, Estim Creat Clear Calc 20.47, Est GFR (MDRD) Af Amer 25 L, Est GFR (MDRD) Non-Af 21 L, BUN/Creatinine Ratio 26.1 H, Glucose 105, Calcium 9.0, Troponin I High Sens 84.0 H* Radiology Impression Brain CT 02/20/21 12:00 IMPRESSION: Chronic involutional changes of the brain. Electronically Signed: Ed Fink MD at 12:19 EDT , Service support , Assessment & Plan Assessment/Plan (1) Pre-syncope: (2) Syncope: (3) Laceration of knee, right: (4) Symptomatic bradycardia: (5) Atrial fibrillation: (6) Coronary artery disease: QUALIFIERS: Coronary Disease-Associated Artery/Lesion type: [place] artery [place] vs. transplanted heart: [place] heart Associated angina: without angina Qualified Code(s): I25.10 - Atherosclerotic heart disease of [place] coronary artery without angina pectoris (7) Adrenal insufficiency: (8) Hypotension: (9) Implantable cardioverter-defibrillator (ICD) in situ: (10) HTN (hypertension): QUALIFIERS: Hypertension type: essential hypertension Qualified Code(s): I10 - Essential (primary) hypertension (11) Chronic systolic (congestive) heart failure: (12) Hyperlipemia: QUALIFIERS: Hyperlipidemia type: unspecified Qualified Code(s): E78.5 - Hyperlipidemia, unspecified (13) Restrictive lung disease: (14) URMILA (obstructive sleep apnea): (15) Hypothyroidism: (16) History of mitral valve replacement with porcine valve: (17) Pulmonary HTN: (18) Cardiomyopathy: QUALIFIERS: Cardiomyopathy type: dilated Qualified Code(s): I42.0 - Dilated cardiomyopathy PLAN: Patient is a 81-year-old lady presented with presyncope 1. Presyncope ?As a result of symptomatic bradycardia. Patient admitted to a monitored bed for continuous telemetry monitoring. 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 Closed head injury ?Following patient presyncope. Head CT obtained was negative for intracranial bleed no subdural hematoma 3. Right knee laceration ?Following patient presyncope this was sutured in the ED 4. Conduction system disorder with history of ventricular arrhythmia ?Status post AICD/pacemaker placement 5. History of chronic congestive heart failure with decreased ejection fraction ?Patient remains compensated at this point 6. Obstructive sleep apnea ?CPAP at night 7. Dyslipidemia -Patient is on statin therapy, continued at home dose 8. History of paroxysmal A. fib ?With previous cardioversion in 2019 9. Chronic kidney disease stage III ?Kidney function at baseline 10. Restrictive lung disease ?Aerosol treatment as needed 11.History of DVT - 07/27 L Iliac DVT.s/p IVC Filter. 12. Hypothyroidism - Patient is on levothyroxine home dose continued 13. Adrenal insufficiency ?Patient is on cortisone did continue 14. Depression with anxiety ?Patient is on SSRI did continue 15. DVT prophylaxis ?Patient is on apixaban discontinued 16. Chronic hypoxic respiratory failure ?Secondary to CHF patient is on baseline oxygen 17. Valvular heart disease ?With history of mitral valve replacement with porcine valve Advance planning; did discuss with the patient and family regarding advanced directives as well as CODE STATUS. Did explain the various scenarios involved ( FULL CODE, DNR CCA, DNR CCA with no intubation, and DNR CC and what each meant) patient elected to be DNR CCA no intubation. Order was placed. Time spent on discussion 18 minutes. Charges/Coding Visit Charges OBSV E&M: 35228 Initial observation care L3 Procedures Hospitalists Procedures: [id number] Advncd Care Plan 30 Min
--- NOTE | 2021-02-20 14:05 | RAD_ITS ---
STUDY: X-RAY - RIGHT HAND REASON FOR EXAM: Female, 81 years old. Injury TECHNIQUE: 4 view(s) of the hand. COMPARISON: None. FINDINGS: Normal radiocarpal articulation. Normal distal radioulnar joint. Degenerative changes of the carpal bones. Chondrocalcinosis of the trying fibrocartilage. Normal metacarpi. Normal metacarpophalangeal joint of the thumb. Normal interphalangeal joint of the thumb. Normal proximal and distal phalanges of the thumb. There is degenerative arthrosis of the metacarpophalangeal (MCP) joints. Normal proximal and distal interphalangeal joints of the second through fifth fingers. Normal phalanges of the second through fifth fingers. Soft tissue swelling. RAD/Hand Min 3 Views IMPRESSION: Degenerative changes. No acute abnormality is seen. Electronically Signed: Ed Fink MD at 8:44 EDT , Service support ,
--- NOTE | 2021-02-20 14:18 | NURSING ---
120 OBS KITTOE SYNCOPE
[2021-02-20] MEDS: Lidocaine 1% /Epi 1:100 (20ml) 20 ML Vial INFILT (14:43)
[2021-02-20] MEDS: Acetaminophen 500 MG Tablet 1000 MG PO (14:43)
[2021-02-20] MEDS: 0.9% Normal Saline 1,000 ML 75 ML IV (15:40)
--- NOTE | 2021-02-20 17:58 | ECHOCS_ITS ---
Reason For Study: Valve replacement Eval Procedure This was a 2D Doppler, Color Flow transthoracic echocardiogram. The study was technically difficult. Contrast injection was performed. Exam performed portable in patient room. Left Ventricle Severely dilated left ventricle. Severe global left ventricular systolic dysfunction. The estimated ejection fraction is 20 %. Right Ventricle Normal RV size. ICD or pacer leads identified within the right ventricle. Normal systolic function. Atria The left atrium is moderately enlarged. The right atrium is mildly enlarged. ICD or pacer leads identified within the right atrium. No doppler evidence for ASD. Mitral Valve Stable appearing bioprosthetic mitral valve apparatus. Moderate (2+) transvalvular insufficiency of the mitral valve. Tricuspid Valve Normal tricuspid valve. Mild tricuspid valve insufficiency. Right ventricular systolic pressure estimated to be 46 mmHg. Aortic Valve Trisinus/trileaflet aortic valve. Mild diffuse aortic valve thickening. Pulmonic Valve The pulmonic valve is not well visualized. Trivial pulmonic valve insufficiency. Great Vessels Normal sized aortic root. Pericardium/Pleural No pericardial effusion. MMode/2D Measurements & Calculations LVIDd: 6.2 cm IVSd: 1.1 cm Ao root diam: 3.2 cm LVIDs: 5.0 cm LVPWd: 1.4 cm RVDd: 4.0 cm FS: 18.6 % LAV(MOD-bp): 57.1 ml LVAd ap4: 40.3 cm2 SV(MOD-sp4): 46.2 ml LAV(MOD-bp) Indexed: 28.9 ml/m2 LVLd ap4: 9.0 cm LAV(MOD-sp2): 52.7 ml EDV(MOD-sp4): 150.0 ml LAV(MOD-sp4): 53.3 ml EDV(sp4-el): 153.4 ml LVAs ap4: 33.1 cm2 LVLs ap4: 8.6 cm ESV(MOD-sp4): 103.8 ml ESV(sp4-el): 108.1 ml EF(MOD-sp4): 30.8 % EF(sp4-el): 29.5 % SV(sp4-el): 45.3 ml LA A4 area: 21.2 cm2 LA dimension(2D): 3.8 cm RA A4 area: 16.3 cm2 Time Measurements MV dec time: 0.40 sec Doppler Measurements & Calculations MV E max bari: 161.6 cm/sec Lat Peak E' Bari: 7.6 cm/sec Med Peak E' Bari: 2.6 cm/sec MV A max bari: 82.3 cm/sec E/E' lat: 21.4 E/E' med: 61.1 MV E/A: 2.0 MV V2 max: 201.9 cm/sec MV P1/2t max bari: 203.3 cm/sec Ao V2 max: 118.2 cm/sec MV max P.3 mmHg MV P1/2t: 117.2 msec Ao max P.6 mmHg MV V2 mean: 108.2 cm/sec Ao V2 mean: 82.0 cm/sec MV mean P.3 mmHg MV dec slope: 508.1 cm/sec2 Ao mean P.0 mmHg MV V2 VTI: 63.3 cm MVA(P1/2t): 1.9 cm2 Ao V2 VTI: 21.1 cm LV V1 max: 89.1 cm/sec PA V2 max: 84.6 cm/sec TR max bari: 328.0 cm/sec LV V1 max P.2 mmHg TR max P.0 mmHg ECHO/Echo Complete W/ Contrast Interpretation Summary The study was technically difficult. Contrast injection was performed. Severely dilated left ventricle. Severe global left ventricular systolic dysfunction. The estimated ejection fraction is 20 %. The left atrium is moderately enlarged. The right atrium is mildly enlarged. Stable appearing bioprosthetic mitral valve apparatus. Moderate (2+) transvalvular insufficiency of the mitral valve. Mild tricuspid valve insufficiency. Mild diffuse aortic valve thickening. Trivial pulmonic valve insufficiency. Right ventricular systolic pressure estimated to be 46 mmHg. Transmitral diastolic flow velocities suggest diastolic dysfunction (pseudonorm al pattern). ICD or pacer leads identified within the right atrium ICD or pacer leads identified within the right ventricle. Ordering Physician: Gurdeep Huang Referring Physician: Minerva Martin Performed By: Dorothea Blair, KEITH, RVT
--- NOTE | 2021-02-20 17:59 | PCM.CONS.C ---
Assessment & Plan Assessment/Plan (1) Syncope: QUALIFIERS: Syncope type: unspecified Qualified Code(s): R55 - Syncope and collapse PLAN: The patient experienced a syncopal event. The etiology is unclear at this time. There is concern based upon her complex cardiovascular history with a recent history of shifting volume status/shifting diuretic therapy as to whether or not the patient may have experienced an orthostatic hypotension event leading to her syncopal event, etc. She has been monitored for cardiac dysrhythmias. She has been evaluated with her ICD. It appears to be functioning appropriately. Thus far there is no report of any obvious cardiac dysrhythmias or ICD malfunction to explain her event. She is noted to have a somewhat elevated high-sensitivity TSH. Additional laboratory studies are pending. However, she is known to have an underlying non-CAD related cardiomyopathy with a history of abnormal cardiac enzymes especially noting her underlying diminished LV systolic function and her chronic renal insufficiency. At the present time she will continue to be monitored for any obvious recurrent events. She will be followed with respect to her laboratory studies and her cardiac rhythm. She will be asked to have a follow-up echocardiogram to reassess her left ventricular wall motion systolic function as well as her valvular anatomy and physiology. (2) Paroxysmal atrial fibrillation: PLAN: She has a history of atrial fibrillation. She is currently remaining on medical management which is included rate control therapy and 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 therapy. (3) Implantable cardioverter-defibrillator (ICD) in situ: PLAN: Again, her ICD was interrogated. It appears to be functioning appropriately with no concerns of cardiac dysrhythmias or antitach pacing or defibrillation. (4) Cardiomyopathy: QUALIFIERS: Cardiomyopathy type: dilated Qualified Code(s): I42.0 - Dilated cardiomyopathy PLAN: She does have a significant underlying non-CAD related cardiomyopathy. She has had to be treated medically with respect to monitoring her vital signs and her volume status with subsequent appropriate adjustment of medication as best as possible. Based upon this event and her subsequent findings a reassessment of her left ventricle will be performed with an echocardiogram. (5) History of mitral valve replacement with porcine valve: PLAN: She has a history of a mitral valve replacement. She has been evaluated locally and at [facility]. The present time the recommendations have been for continued conservative medical management with no plans for any additional invasive or interventional procedures with respect to her mitral valve anatomy and physiology. 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 Her case was reviewed when she underwent her original evaluation and care and it was not thought that she was a candidate for any type of CT surgical based intervention with respect to her mitral valve. Thus she continued her chronic antibiotic therapy. (7) Atherosclerotic heart disease of [place] coronary artery with angina pectoris: QUALIFIERS: [place] vs. transplanted heart: [place] heart Qualified Code(s): I25.119 - Atherosclerotic heart disease of [place] coronary artery with unspecified angina pectoris PLAN: She has a history of nonangiographically significant CAD. She will continue risk factor evaluation care as deemed appropriate. (8) Hyperlipemia: QUALIFIERS: Hyperlipidemia type: unspecified Qualified Code(s): E78.5 - Hyperlipidemia, unspecified PLAN: She will continue medical management with adjustment as needed. (9) Leukocytosis: QUALIFIERS: Leukocytosis type: unspecified Qualified Code(s): D72.829 - Elevated white blood cell count, unspecified PLAN: She does have an elevated WBC. This may be secondary to her acute event. She will need to be monitored for any obvious infectious related etiologies-acute that would contribute to her event or findings. (10) Renal insufficiency: PLAN: She does have chronic renal insufficiency. Her creatinine level somewhat more prominent. This may be secondary to her recent volume shifts and medication shifts as described by her spouse. She will need to be monitored with respect to her volume status, her renal function, and her medications. (11) Abnormal cardiac enzyme level: PLAN: Again she does have abnormal cardiac enzymes. She has had a history of these findings. This is superimposed upon a history of a non-CAD related cardiomyopathy with significant left ventricular systolic dysfunction in the setting of chronic renal insufficiency. At the present time she will be followed in her enzymes can be followed and she can undergo noninvasive evaluation. She will continue medical therapy. There are no plans for any invasive evaluation at this time. Addt'l Comments The patient's case was discussed and reviewed with the patient, her is, and Dr. Raymundo of the [facility] emergency department staff. This note was generated using a voice recognition system and there may be incorrect words, spelling or punctuation that were not noted when reviewing the office note prior to saving. HPI Consult Data Date of Consult: 02/20/21 HPI Narrative HPI Narrative: IRIS DAVENPORT, is a 81 year old white female who presents who presents for emergency department evaluation secondary to concerns of syncope resulting in a fall with subsequent ecchymoses and lacerations superimposed upon a history of an underlying non-CAD related cardiomyopathy, chronic systolic mediated CHF, mitral valve prolapse/insufficiency status post a 31 mm [place] porcine valve replacement (2009), atrial fibrillation, status post ICD placement, infectious endocarditis-chronic antibiotic therapy, hyperlipidemia, and URMILA treated with CPAP therapy. 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 Upon getting out of the vehicle she felt somewhat dizzy and lightheaded. She states she subsequently lost consciousness and fell to the ground. This resulted in ecchymoses in the right periorbital area, and injury to the right upper extremity digit, and a laceration to the right knee. She was subsequently taken to the [facility] emergency department for evaluation. She does not recall having any form of chest discomfort. She does not recall any acute shortness of breath or dyspnea. There has been no other reports of ongoing near syncope or syncope. She states her ICD did not discharged. Her states that her weight has fluctuated. He knows it has increased. He has been giving her additional furosemide/Lasix therapy to assist with her volume status. He does monitor her vital signs at home. Her blood pressures do fluctuate. It is not uncommon that they are on the low side . She did have her ICD interrogated in the emergency department. It appeared to be functioning appropriately with no alarms or alerts. There was no report of antitach pacing or defibrillation. Per the report there was no heart rate below 40 bpm which is her lower rate limit. She was undergoing evaluation with laboratory studies. Her WBC was elevated. Her BUN and creatinine are elevated. Her creatinine level has been somewhat chronically elevated however her recent labs appear to be somewhat more prominent. Her high-sensitivity troponin I level was elevated at 84. Her ECG demonstrated the appearance of sinus rhythm with a left axis and findings compatible with left ventricular hypertrophy and nonspecific ST/T wave abnormality. She was subsequently being placed in the PCU for continued evaluation and care. 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 Menopausal osteoporosis Non-smoker Nonrheumatic mitral (valve) prolapse On home oxygen therapy URMILA (obstructive sleep apnea) Paroxysmal atrial fibrillation Pre-syncope Prediabetes Pulmonary HTN Restrictive lung disease Seizures Sleep apnea Spondylosis of cervical joint Stroke TIA (transient ischemic attack) Home Medications multivitamin with folic acid 1 tab PO DAILY 11/16/15 [History Last Taken 02/20/21] albuterol sulfate 90 mcg/actuation aerosol inhaler 2 puff INHALATION BID PRN 09/10/17 [History Last Taken 02/20/21] pravastatin 40 mg tablet 40 mg PO QHS tab 09/11/17 [History Last Taken 02/19/21] levothyroxine 88 mcg PO QHS 06/22/18 [History Last Taken 02/19/21] gabapentin 100 mg capsule 100 mg PO QHS cap 07/15/18 [History Last Taken 02/19/21] aspirin 81 mg PO DAILY@0800 09/07/18 [History Last Taken 02/20/21] amitriptyline 50 mg tablet 50 mg PO QHS 10/15/18 [History Last Taken 02/19/21] citalopram 20 mg PO DAILY 08/13/19 [History Last Taken 02/20/21] amiodarone 200 mg PO DAILY tab 09/28/19 [Rx Last Taken Unknown] magnesium oxide 400 mg (241.3 mg magnesium) tablet 400 mg PO .QODAY #30 tab 12/08/19 [Rx Last Taken 02/20/21] amoxicillin 500 mg tablet 500 mg PO DAILY tab 02/02/20 [History Last Taken 02/20/21] furosemide 40 mg tablet 60 mg PO BID tab 02/02/20 [History Last Taken 02/20/21] lidocaine 5 % topical patch 1 patch TOPICAL DAILY@1100 PRN patch 02/02/20 [History Last Taken 02/17/21] carvedilol 6.25 mg tablet 12.5 mg PO BID tab 06/05/20 [History Last Taken 02/20/21] apixaban 2.5 mg tablet 2.5 mg PO BID 09/04/20 [History Last Taken 02/20/21] ascorbate calcium (vitamin C) 500 mg tablet 500 mg PO DAILY 11/08/20 [History Last Taken 02/20/21] hydrocortisone 5 mg tablet 5 mg PO DAILY 11/08/20 [History Last Taken 02/20/21] omega-3 fatty acids 1,000 mg capsule 1,000 mg PO DAILY 11/08/20 [History Last Taken 02/20/21] vitamin E mixed 1,000 unit capsule 1,000 unit PO DAILY 11/08/20 [History Last Taken 02/20/21] potassium chloride 20 mEq tablet,extended release 20 meq PO .every third day #30 tab 02/05/21 [Rx Last Taken 02/18/21] brimonidine 1 drp EACH EYE BID 02/20/21 [History Last Taken 02/20/21] galantamine 4 mg PO BID 02/20/21 [History Last Taken 02/20/21] ofloxacin 1 drp LEFT EYE BID 02/20/21 [History Last Taken 02/20/21] Allergy/AdvReac Type Severity Reaction Status Date / Time levofloxacin [Levofloxacin] Allergy Hives Verified 02/20/21 11:09 sacubitril [From Entresto] Allergy itching Verified 02/20/21 11:09 valsartan [From Entresto] Allergy itching Verified 02/20/21 11:09 warfarin [From Coumadin] Allergy Other Verified 02/20/21 11:09 torsemide [From Demadex] AdvReac Intermediate Rash Verified 02/20/21 11:09 Family History Father CVA (cerebral vascular accident) Mother Cancer bone Sister Cancer bone Diabetes Surgical History AICD (automatic cardioverter/defibrillator) present History of bilateral hip replacements History of bilateral knee replacement History of cataract surgery History of embolic filter insertion History of hysterectomy History of mitral valve replacement with porcine valve Social History Smoking Status: Never smoker second hand exposure: No alcohol intake: never substance use type: does not use caffeine: No ROS Constitutional Constitutional: Reports change in weight Eyes Eyes: Reports other Details: Right periorbital ecchymoses ENT HEENT: Reports as per HPI Cardiovascular Cardiovascular: Reports dyspnea and syncope Respiratory/Chest Respiratory/Chest: Reports dyspnea Gastrointestinal Gastrointestinal: Reports as per HPI Genitourinary Genitourinary: Reports as per HPI Musculoskeletal Musculoskeletal: Reports none and other Details: Right upper extremity: Digit: In a bandage; right knee: In a bandage Integumentary Integumentary: Reports as per HPI Neurologic Neurologic: Reports as per HPI Physical Exam Narrative The patient is awake and alert and appears to be in no acute distress. Const alert, oriented x3 and no apparent distress Orientation / Consciousness: awake HEENT normocephalic and hearing grossly normal bilaterally HEENT Narrative: Right periorbital ecchymoses Eyes PERRL, EOMs intact bilaterally and conjunctivae normal Neck full ROM, supple and no JVD Chest Chest: midline sternotomy incision Resp clear to auscultation bilaterally Cardio regular rate, regular rhythm, S1 normal heart sound and S2 normal heart sound Heart Sounds: murmur systolic II/ soft mid left sternal border GI normal to inspection, nondistended, normoactive bowel sounds Extremity no pedal edema Skin General Skin Exam: ecchymosis Neuro oriented x3 and moves all extremities Psych mental status grossly normal Procedure Criteria Type of Procedure Procedure Type: Elective Elective Risks - COVID COVID Risk Discussion: The surgeon/proceduralist and patient have discussed in detail the risk of exposure to and/or potential harm posed by the COVID-19 virus with having a surgery/procedure at this time versus the risk of delaying the surgery/procedure. It is not possible to know either the risk of delaying the surgery or procedure or chance of getting an infection with perfect accuracy, but a joint decision was made between the patient and the surgeon/proceduralist to proceed at this time with the scheduled surgery/procedure as indicated on the consent form. Objective Data Vital Signs: Vital Signs Temp Pulse Resp BP Pulse Ox 98.7 F 57 L 16 123/58 H 98 02/20/21 15:57 02/20/21 16:32 02/20/21 15:57 02/20/21 16:32 02/20/21 16:38 Oxygen Flow Rate (L/min) 2 Oxygen Delivery Method Nasal Cannula Weight: 176 lb 9.444 oz Body Mass Index (BMI) 25.3 Intake & Output: Intake and Output for Last 24 Hours 02/18/21 02/19/21 02/20/21 23:59 23:59 23:59 Intake Total 240 / 240 Balance 240 / 240 Lab / Micro Data Result Diagrams: 02/20/21 11:45 02/20/21 11:45 Labs: Laboratory Results - last 24 hr 02/20/21 11:45: WBC 17.7 H, RBC 4.17 L, Hgb 13.6, Hct 42.1, MCV 101.0 H, MCH 32.6 H, MCHC 32.3, RDW Std Deviation 59.3 H, RDW Coeff of Jackie 15.9 H, Plt Count 282, MPV 9.7, Immature Gran % (Auto) 2.800 H, Neut % (Auto) 79.6 H, Lymph % (Auto) 7.5 L, [place] % (Auto) 7.8, Eos % (Auto) 2.0, Baso % (Auto) 0.3, Absolute Neuts (auto) 14.1 H, Absolute Lymphs (auto) 1.32, Nucleated RBC % 0 02/20/21 11:45: Sodium 137, Potassium 3.7, Chloride 102, Carbon Dioxide 29.0, Anion Gap 6, BUN 63 H, Creatinine 2.41 H, Estim Creat Clear Calc 20.47, Est GFR (MDRD) Af Amer 25 L, Est GFR (MDRD) Non-Af 21 L, BUN/Creatinine Ratio 26.1 H, Glucose 105, Calcium 9.0, Troponin I High Sens 84.0 H* Cardiology Labs/Tests 02/20/21 11:45: WBC 17.7 H, RBC 4.17 L, Hgb 13.6, Hct 42.1, MCV 101.0 H, MCH 32.6 H, MCHC 32.3, Plt Count 282, MPV 9.7, Immature Gran % (Auto) 2.800 H, Neut % (Auto) 79.6 H, Lymph % (Auto) 7.5 L, [place] % (Auto) 7.8, Eos % (Auto) 2.0, Baso % (Auto) 0.3, Absolute Neuts (auto) 14.1 H, Nucleated RBC % 0 02/20/21 11:45: Sodium 137, Potassium 3.7, Chloride 102, Carbon Dioxide 29.0, Anion Gap 6, BUN 63 H, Creatinine 2.41 H, Est GFR (MDRD) Af Amer 25 L, Est GFR (MDRD) Non-Af 21 L, BUN/Creatinine Ratio 26.1 H, Glucose 105, Calcium 9.0 Rhythm: As noted above EKG: As noted above ECHO: 02-17-2020 Interpretation Summary Severely dilated left ventricle. Severe global left ventricular systolic dysfunction. The estimated ejection fraction is 15 %. Moderately dilated right ventricle. Moderate global right ventricular systolic dysfunction. The left atrium is moderately enlarged. The right atrium is moderately enlarged. Stable appearing bioprosthetic mitral valve apparatus. Moderate (2+) transvalvular insufficiency of the mitral valve. Moderate (2+) tricuspid valve insufficiency. Mild (1+) pulmonic valve insufficiency. Right ventricular systolic pressure estimated to be 48 mmHg. Unable to assess diastolic dysfunction. ICD or pacer leads identified within the right atrium ICD or pacer leads identified within the right ventricle. Comment: Compared to the previous transthoracic echocardiogram from 08-23-2019 the previous mobile echodensity associated with the mitral valve apparatus is not visualized at this time. Transesophageal echocardiogram: 08-10-2015 Interpretation Summary Severe global left ventricular systolic dysfunction. The estimated ejection fraction is 20 %. 2D echocardiographic images appear c/w right ventricular dilatation and moderate to severe global right ventricular systolic dysfunction. The left atrium is moderately enlarged. There is no spontaneous contrast in the left atrium. 2D echocardiographic images c/w a left atrial appendage ligation wtih no obvious left atrial appendage thrombus identified. The right atrium is moderately enlarged. Stable appearing bioprosthetic mitral valve apparatus with 2D and 3D echocardiographic images c/w prosthetic valve leaflet thickening and partial restriction of the posterior leaflet with spectral doppler c/w moderate to severe mitral valve stenosis. Moderate (2+) transvalvular insufficiency of the mitral valve. Mild to moderate (1-2+) tricuspid valve insufficiency. Mild diffuse aortic valve thickening. Mild focal aortic valve calcification. Bubble contrast study negative for right to left interatrial shunt. Mild atherosclerosis of the descending aorta. ICD or pacer leads identified within the right atrium ICD or pacer leads identified within the right ventricle. Comment: 2D echocardiographic images demonstrate a small mobile echodensity in the right atrium appearing associated with an ICD lead appearing c/w a small thrombus, although other etiologies of mobile mass lesiona cannot be completely excluded. Synchronized biphasic DC cardioversion: 11-17-2018 Problem List (1) Atrial fibrillation Status: Acute Qualifiers: Atrial fibrillation type: persistent Qualified Code(s): I48.1 - Persistent atrial fibrillation Report of Operation Date of Procedure: 11/17/18 Pre-Operative Diagnosis: Atrial fibrillation Post-Operative Diagnosis: Atrial fibrillation Surgery/Procedure Performed:: Synchronized biphasic DC cardioversion Description of Surgical Findings:: Procedure: Synchronized Biphasic DC Cardioversion Indications: Atrial fibrillation Consent: [Per the Patient] Anesthesia: per Dr. Albarado of pulmonology and critical care medicine with etomidate 4 mg IV push total Procedure: Synchronized Biphasic DC Cardioversion: 200 J x1: Result: Sinus rhythm with PACs and occasional electronic ventricular paced to be Complications: no apparent complications This note was generated with [employer] dictation software. It may contain incorrect words, spelling, and punctuation that were not noted in checking the note before signing. Type of Anesthesia:: IV Sedation Anesthesiologist: Bruno Albarado Special Medications: Etomidate 4 mg IV push total Description of Procedure: Procedure: Synchronized Biphasic DC Cardioversion Indications: Atrial fibrillation Consent: [Per the Patient] Anesthesia: per Dr. Albarado of pulmonology and critical care medicine with etomidate 4 mg IV push total Procedure: Synchronized Biphasic DC Cardioversion: 200 J x1: Result: Sinus rhythm with PACs and occasional electronic ventricular paced to be Complications: no apparent complications This note was generated with [employer] dictation software. It may contain incorrect words, spelling, and punctuation that were not noted in checking the note before signing. - Complications None Radiography Diagnostic Testing: Radiology Impression Knee X-Ray 02/20/21 11:24 IMPRESSION: Status post lateral unicompartmental arthroplasty. Chondrocalcinosis of the medial meniscus. Electronically Signed: Ed Fink MD at 13:22 EDT , Service support , Brain CT 02/20/21 12:00 IMPRESSION: Chronic involutional changes of the brain. Electronically Signed: Ed Fink MD at 12:19 EDT , Service support , Chest X-Ray 02/20/21 12:55 IMPRESSION: No acute abnormality is present. Electronically Signed: Ed Fink MD at 13:20 EDT , Service support ,
[2021-02-20 18:34] LABS: Troponin-I HS 91.6 pg/mL (3.0-53.7)
[2021-02-20 20:18] LABS: Troponin-I HS 77.9 pg/mL (3.0-53.7)
--- NOTE | 2021-02-20 20:22 | NURSING ---
Pts primary rn Sariah aware of troponin result of 77.9 at this time.
[2021-02-20] MEDS: Budesonide Respules 0.5 MG/2 ML AMPUL.NEB. INHALATION (21:35)
[2021-02-20] MEDS: Gabapentin 100 MG Capsule PO (21:35)
[2021-02-20] MEDS: APIXABAN 2.5 MG TABLET PO (21:35)
[2021-02-20] MEDS: Pravastatin 40 MG Tablet PO (21:36)
[2021-02-20] MEDS: Levothyroxine 88 MCG Tablet PO (21:36)
[2021-02-20] MEDS: Amitriptyline 25 MG Tablet 50 MG PO (21:36)
[2021-02-20] MEDS: BRIMONIDINE 0.15% 5 ML Bottle 1 DRP EACH EYE (21:36)
[2021-02-20] MEDS: Acetaminophen 325 MG Tablet 650 MG PO (21:45)
[2021-02-21] VITALS (9 sets, daily range): BP systolic 95–109; BP diastolic 50–56; PULSE 55–100; RESP 16–18; TEMP 36.3–36.4; O2SAT 97–99
[2021-02-21 00:21] LABS: Troponin-I HS 67.8 pg/mL (3.0-53.7)
[2021-02-21] MEDS: 0.9% Normal Saline 1,000 ML 75 ML IV (04:40)
[2021-02-21] MEDS: Budesonide Respules 0.5 MG/2 ML AMPUL.NEB. INHALATION (07:02)
[2021-02-21 07:17] LABS: Absolute Lymphocyte Count 1.14 X10^3/uL (0.83-4.51); Absolute Neutrophil Count 12.5 X10^3/uL (2.0-7.7); Basophil# 0.03 X10^3/uL; Basophil% 0.2 % (0-1); Eosinophil# 0.22 X10^3/uL; Eosinophils% 1.4 % (0-5); Hematocrit 37.8 % (37-47); Lymphocyte # 1.14 X10^3/ul (0.83-4.51); Lymphocyte % 7.3 % (19-41); Mean Corp Hgb Conc 31.7 g/dL (32-36); Mean Corpuscular Hgb 32.3 pg (27.0-32.0); Mean Corpuscular Volume 101.9 fL (81-99); Mean Platelet Vol. 9.6 fl (6.2-12.0); Monocyte# 1.51 X10^3/uL; Monocyte% 9.7 % (0-10); NRBC Flagged by Analyzer 0 % (0-5); Neutrophil # 12.48 X10^3/uL (2.7-7.7); Neutrophil % 79.8 % (47-70); POSITIVE DIFFERENTIAL YES; Platelet Count 236 K/mm3 (150-450); RBC Distribution Width CV 16.2 % (11.6-14.6); RBC Distribution Width SD 60.9 fl (35.1-43.9); Red Blood Count 3.71 M/mm3 (4.2-5.4); White Blood Count 15.6 K/mm3 (4.4-11.0)
[2021-02-21 07:25] LABS: Differential Indicated SCAN CRITERIA MET
[2021-02-21 07:45] LABS: Anion Gap 5 (5-15); BUN 46 mg/dL (7-18); BUN/Creat Ratio 27.5 RATIO (10-20); Calcium,Total 7.9 mg/dL (8.5-10.1); Chloride 109 mmol/L (98-107); Creatinine, Serum 1.67 mg/dL (0.55-1.02); EST Glomerular Filtration Rate 31 mL/min (>60); Est Glom Filt Rate - Afr Amer 38 mL/min (>60); Estimated Creatinine Clearance 29.54 ml/min; Glucose 79 mg/dL (74-106); Magnesium 2.5 mg/dL (1.6-2.6); Phosphorus 2.7 mg/dL (2.5-4.9); Potassium 3.6 mmol/L (3.5-5.1); Sodium Level 142 mmol/L (136-145)
[2021-02-21] MEDS: APIXABAN 2.5 MG TABLET PO (09:17)
[2021-02-21] MEDS: Hydrocortisone 10 MG Tablet 5 MG PO (09:17)
[2021-02-21] MEDS: Citalopram 20 MG Tablet PO (09:18)
[2021-02-21] MEDS: BRIMONIDINE 0.15% 5 ML Bottle 1 DRP EACH EYE (09:18)
[2021-02-21] MEDS: Aspirin 81 MG TAB.CHEW PO (09:18)
[2021-02-21] MEDS: Acetaminophen 325 MG Tablet 650 MG PO ×2 (09:24→16:14)
[2021-02-21 13:40] LABS: Pathologist Review Reviewed
--- NOTE | 2021-02-21 13:59 | DS.PCM_ITS ---
Providers Date of Admission: 02/20/21 Primary Care Physician: Dr. Minerva Martin MD Consultations 02/20/21 15:31 Consult: Cardiology Routine Consulting Provider: Gurdeep Huang Reason for Consult: syncope EMERGENT Consult: No MD Notified: Yes Date Notified: 02/20/21 Time Notified: 13:19 Method of Notification: by ed Reason For Visit: SYNCOPE Diagnosis Discharge Diagnosis (1) Syncope: Status: Acute Code(s): R55 - Syncope and collapse Qualifiers: Syncope type: unspecified Qualified Code(s): R55 - Syncope and collapse (2) Paroxysmal atrial fibrillation: Status: Chronic Code(s): I48.0 - Paroxysmal atrial fibrillation (3) Implantable cardioverter-defibrillator (ICD) in situ: Status: Chronic Code(s): Z95.810 - Presence of automatic (implantable) cardiac defibrillator (4) Cardiomyopathy: Status: Chronic Code(s): I42.9 - Cardiomyopathy, unspecified Qualifiers: Cardiomyopathy type: dilated Qualified Code(s): I42.0 - Dilated cardiomyopathy (5) History of mitral valve replacement with porcine valve: Status: Chronic Code(s): Z95.3 - Presence of xenogenic heart valve (6) Endocarditis: Status: Resolved Code(s): I38 - Endocarditis, valve unspecified Qualifiers: Chronicity: acute Endocarditis type: infective Infective endocarditis organism: bacterial Qualified Code(s): I33.0 - Acute and subacute infective endocarditis (7) 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 transplanted heart: [place] heart Qualified Code(s): I25.119 - Atherosclerotic heart disease of [place] coronary artery with unspecified angina pectoris (8) Hyperlipemia: Status: Chronic Code(s): E78.5 - Hyperlipidemia, unspecified Qualifiers: Hyperlipidemia type: unspecified Qualified Code(s): E78.5 - Hyperlipidemia, unspecified (9) Leukocytosis: Status: Acute Code(s): D72.829 - Elevated white blood cell count, unspecified Qualifiers: Leukocytosis type: unspecified Qualified Code(s): D72.829 - Elevated white blood cell count, unspecified (10) Renal insufficiency: Status: Chronic Code(s): N28.9 - Disorder of kidney and ureter, unspecified (11) Abnormal cardiac enzyme level: Status: Acute Code(s): R74.8 - Abnormal levels of other serum enzymes Medications at Discharge Home Medications multivitamin with folic acid 1 tab PO DAILY 11/16/15 albuterol sulfate 90 mcg/actuation aerosol inhaler 2 puff INHALATION BID PRN 09/10/17 pravastatin 40 mg tablet 40 mg PO QHS tab 09/11/17 levothyroxine 88 mcg PO QHS 06/22/18 gabapentin 100 mg capsule 100 mg PO QHS cap 07/15/18 aspirin 81 mg PO DAILY@0800 09/07/18 amitriptyline 50 mg tablet 50 mg PO QHS 10/15/18 citalopram 20 mg PO DAILY 08/13/19 amiodarone 200 mg PO DAILY tab 09/28/19 magnesium oxide 400 mg (241.3 mg magnesium) tablet 400 mg PO .QODAY #30 tab 12/08/19 amoxicillin 500 mg tablet 500 mg PO DAILY tab 02/02/20 lidocaine 5 % topical patch 1 patch TOPICAL DAILY@1100 PRN patch 02/02/20 apixaban 2.5 mg tablet 2.5 mg PO BID 09/04/20 ascorbate calcium (vitamin C) 500 mg tablet 500 mg PO DAILY 11/08/20 hydrocortisone 5 mg tablet 5 mg PO DAILY 11/08/20 omega-3 fatty acids 1,000 mg capsule 1,000 mg PO DAILY 11/08/20 vitamin E mixed 1,000 unit capsule 1,000 unit PO DAILY 11/08/20 potassium chloride 20 mEq tablet,extended release 20 meq PO .every third day #30 tab 02/05/21 brimonidine 1 drp EACH EYE BID 02/20/21 galantamine 4 mg PO BID 02/20/21 ofloxacin 1 drp LEFT EYE BID 02/20/21 carvedilol [Coreg] 6.25 mg PO BID #60 tab 02/21/21 furosemide [Lasix] 40 mg PO BID #60 tab 02/21/21 Hospital Course Procedures 2-D Echocardiogram Summary of Care Provided Minutes Spent on Discharge: 39 Hospital Course: Mrs. Arriaga is a 81-year-old female who has a past medical history of nonischemic cardiomyopathy and an EF of approximately 15% status post ICD placement presented to the emergency department at [facility] on 02/20/2021 status post a fall following an episode of lightheadedness. The patient states she got out of the car when she became lightheaded and subsequently fell. She does not remember anything after feeling lightheaded for a brief amount of time. She suffered from a bruise of the right knee and sustained a bruise over her right eyelid from hitting her head. A CT of her head was obtained in the emergency department and was negative. In the ED she was found to be bradycardic with heart rates as low as 44. And she was therefore admitted in relationship to her presyncopal/syncopal episode and her heart rate with history of nonischemic cardiomyopathy. She had a recent TSH which was within normal limits. And she does have hypothyroidism at baseline and is on chronic thyroid replacement. She was noted to be on carvedilol 12.5 mg twice daily. She was evaluated by cardiology during her hospitalization and her ICD was evaluated with no cardiac dysrhythmias noted upon interrogation. She had mild troponin elevation and a repeat echocardiogram was performed and showed stability in her cardiac function which is poor at baseline. Her repeat echo done on 02/20/2021 showed an EF of 20% with severe global LV dysfunction, biatrial enlargement, a stable bioprosthetic mitral valve, 2+ mitral valve insufficiency and diastolic dysfunction. The exact etiology of her event is undetermined at this time. Per discussion with cardiology its most likely related to her complex cardiovascular history with volume shifts and possible orthostatic event. Given her bradycardia her Coreg was decreased from 12.5 mg twice daily to 6.25 mg twice daily and her Lasix was reduced from 60 mg twice daily to 40 mg twice daily. Prescriptions for this were faxed to her local [facility] as she typically has mail order delivery. She is to follow-up with Dr. Huang as scheduled and we recommend follow-up with Dr. Martin in 1 week. She was discharged home in stable condition. 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 CAD HPL Leukocytosis -Suspected reactive as patient has no signs of current infection other than history of chronic endocarditis Hypothyroidism PAF Depression Chronic adrenal insufficiency History of DVT Osteoporosis URMILA PAH History of stroke Physical Exam Const alert, oriented x3 and no apparent distress Constitutional Narrative: Elderly white female sitting up in a chair at the bedside, appears comfortable, nontoxic, no labored breathing, nursing at the bedside General Appearance: cooperative and comfortable Exam Limitations: no limitations HEENT head/scalp atraumatic, hearing grossly normal bilaterally, moist oral mucous membranes and oropharynx normal Mouth: oral and palatal mucosa normal Eyes PERRL, EOMs intact bilaterally and conjunctivae normal Neck no lymphadenopathy, supple and no JVD Neck Narrative: Trachea midline Resp normal respiratory effort, no retractions, no use of accessory muscles and clear to auscultation bilaterally Auscultation: Negative for crackles, rales, rhonchi or wheezes Cardio regular rhythm, S1 normal heart sound, S2 normal heart sound, no murmurs, no rub, no gallops, no clicks and no JVD Cardio Narrative: Sinus bradycardia GI normal to inspection, nondistended, normoactive bowel sounds, soft to palpation, non-tender and non-distended; Negative for hepatosplenomegaly Extremity normal to inspection, full ROM and no clubbing, cyanosis or edema Skin no rashes or lesions noted, no wounds, skin turgor normal and no jaundice Neuro oriented x3, CN's II-XII intact bilaterally, moves all extremities and no focal motor deficits Neuro Narrative: Generalized weakness but no focal deficit Sensorium / Orientation: awake, alert, oriented to person, oriented to place and oriented to time Speech: speech normal Psych Psych Narrative: Affect is slightly flat but patient is pleasant, I intact good Weight / BMI Weight Weight: 80.1 kg Body Mass Index (BMI) 25.3 ABG / Lab / Microbiology Data Result Diagrams: 02/21/21 06:38 02/21/21 06:38 Laboratory: Laboratory Results - last 24 hr 02/20/21 16:40: Troponin I High Sens 91.6 H* 02/20/21 19:06: Troponin I High Sens 77.9 H* 02/20/21 23:00: Troponin I High Sens 67.8 H* 02/21/21 06:38: WBC 15.6 H, RBC 3.71 L, Hgb 12.0, Hct 37.8, MCV 101.9 H, MCH 32.3 H, MCHC 31.7 L, RDW Std Deviation 60.9 H, RDW Coeff of Jackie 16.2 H, Plt Count 236, MPV 9.6, Immature Gran % (Auto) 1.600 H, Neut % (Auto) 79.8 H, Lymph % (Auto) 7.3 L, [place] % (Auto) 9.7, Eos % (Auto) 1.4, Baso % (Auto) 0.2, Absolute Neuts (auto) 12.5 H, Absolute Lymphs (auto) 1.14, Nucleated RBC % 0, Diff Path Review Reviewed 02/21/21 06:38: Sodium 142, Potassium 3.6, Chloride 109 H, Carbon Dioxide 28.0, Anion Gap 5, BUN 46 H, Creatinine 1.67 H, Estim Creat Clear Calc 29.54, Est GFR (MDRD) Af Amer 38 L, Est GFR (MDRD) Non-Af 31 L, BUN/Creatinine Ratio 27.5 H, Glucose 79, Calcium 7.9 L, Phosphorus 2.7, Magnesium 2.5 Radiography Diagnostic Testing: Radiology Impression Hand X-Ray 02/20/21 14:05 IMPRESSION: Degenerative changes. No acute abnormality is seen. Electronically Signed: Ed Fink MD at 8:44 EDT , Service support , Echocardiogram 02/20/21 17:58 Interpretation Summary The study was technically difficult. Contrast injection was performed. Severely dilated left ventricle. Severe global left ventricular systolic dysfunction. The estimated ejection fraction is 20 %. The left atrium is moderately enlarged. The right atrium is mildly enlarged. Stable appearing bioprosthetic mitral valve apparatus. Moderate (2+) transvalvular insufficiency of the mitral valve. Mild tricuspid valve insufficiency. Mild diffuse aortic valve thickening. Trivial pulmonic valve insufficiency. Right ventricular systolic pressure estimated to be 46 mmHg. Transmitral diastolic flow velocities suggest diastolic dysfunction (pseudonormal pattern). ICD or pacer leads identified within the right atrium ICD or pacer leads identified within the right ventricle. Ordering Physician: Gurdeep Huang Referring Physician: Minerva Martin Performed By: Dorothea Blair RDCS, RVT D/C Instructions Discharge Diet: Low fat / Low cholesterol Discharge Activity: Return to Normal Activity Meaningful Use Info Meaningful Use Diagnoses (Choose all that apply): CHF CHF ANTONIO/ARB ordered at discharge?: No Reason ANTONIO/ARB not ordered?: Worsening renal dysfunctn Documented LVEF (%): 15 Discharge Plan Admission Admit Date/Time: 02/20/21 13:19 Primary Reason for Your Visit: Syncope Attending Provider: Antonia Diaz Primary Care Provider: Minerva Martin Consulting Providers: Gurdeep Huang Discharge Orders/Prescriptions Prescriptions: New carvedilol [Coreg] 6.25 mg tablet 6.25 mg PO BID Qty: 60 RF: 0 furosemide [Lasix] 40 mg tablet 40 mg PO BID Qty: 60 RF: 0 Continued albuterol sulfate [ProAir HFA] 90 mcg/actuation HFA aerosol inhaler 2 puff INHALATION BID PRN (Reason: Sob &/Or Wheezing) RF: 0 gabapentin 100 mg capsule 100 mg PO QHS RF: 0 amitriptyline 50 mg tablet 50 mg PO QHS RF: 0 amoxicillin 500 mg tablet 500 mg PO DAILY RF: 0 lidocaine 5 % adhesive patch,medicated 1 patch topical DAILY@1100 PRN (Reason: Pain) RF: 0 hydrocortisone 5 mg tablet 5 mg PO DAILY RF: 0 magnesium oxide 400 mg (241.3 mg magnesium) tablet 400 mg PO .QODAY Qty: 30 RF: 0 Eliquis 2.5 mg tablet 2.5 mg PO BID RF: 0 ascorbate calcium (vitamin C) 500 mg tablet 500 mg PO DAILY RF: 0 omega-3 fatty acids [Fish Oil Concentrate] 1,000 mg capsule 1,000 mg PO DAILY RF: 0 vitamin E mixed 1,000 unit capsule 1,000 unit PO DAILY RF: 0 pravastatin 40 MG tablet 40 mg PO QHS RF: 0 multivitamin with folic acid 1 TABLET tablet 1 tab PO DAILY RF: 0 levothyroxine 88 MCG tablet 88 mcg PO QHS RF: 0 aspirin 81 MG tablet,chewable 81 mg PO DAILY@0800 RF: 0 citalopram 20 MG tablet 20 mg PO DAILY RF: 0 amiodarone 200 MG tablet 200 mg PO DAILY RF: 0 ofloxacin 0.3 % drops 1 drp LEFT EYE BID RF: 0 galantamine 4 mg tablet 4 mg PO BID RF: 0 brimonidine 0.2 % drops 1 drp EACH EYE BID RF: 0 potassium chloride 20 mEq tablet extended release 20 meq PO .every third day Qty: 30 RF: 3 Hold Instructions: hyperkalemia Discontinued furosemide 40 mg tablet 60 mg PO BID RF: 0 carvedilol 6.25 mg tablet 12.5 mg PO BID RF: 0 Referrals / Follow Up: Minerva Martin MD [Primary Care Provider] - In 1 Week Antonia Diaz DO [STAFF PHYSICIAN] - Gurdeep Huang MD [STAFF PHYSICIAN] - See Referral Note (As scheduled) Disposition Disposition (needs filled in before D/C Order can be placed): Home, Self Care Charges/Coding Visit Charges Inpatient E&M: 30931 Disch Hosp
--- NOTE | 2021-02-21 14:19 | PHA.DC.MR ---
Pharmacy Service has performed discharge medication reconciliation for this patient. The patient's discharge medication list was reviewed for discrepancies and discrepancies were resolved. Home Medications multivitamin with folic acid 1 tab PO DAILY 11/16/15 albuterol sulfate 90 mcg/actuation aerosol inhaler 2 puff INHALATION BID PRN 09/10/17 pravastatin 40 mg tablet 40 mg PO QHS tab 09/11/17 levothyroxine 88 mcg PO QHS 06/22/18 gabapentin 100 mg capsule 100 mg PO QHS cap 07/15/18 aspirin 81 mg PO DAILY@0800 09/07/18 amitriptyline 50 mg tablet 50 mg PO QHS 10/15/18 citalopram 20 mg PO DAILY 08/13/19 amiodarone 200 mg PO DAILY tab 09/28/19 magnesium oxide 400 mg (241.3 mg magnesium) tablet 400 mg PO .QODAY #30 tab 12/08/19 amoxicillin 500 mg tablet 500 mg PO DAILY tab 02/02/20 lidocaine 5 % topical patch 1 patch TOPICAL DAILY@1100 PRN patch 02/02/20 apixaban 2.5 mg tablet 2.5 mg PO BID 09/04/20 ascorbate calcium (vitamin C) 500 mg tablet 500 mg PO DAILY 11/08/20 hydrocortisone 5 mg tablet 5 mg PO DAILY 11/08/20 omega-3 fatty acids 1,000 mg capsule 1,000 mg PO DAILY 11/08/20 vitamin E mixed 1,000 unit capsule 1,000 unit PO DAILY 11/08/20 potassium chloride 20 mEq tablet,extended release 20 meq PO .every third day #30 tab 02/05/21 brimonidine 1 drp EACH EYE BID 02/20/21 galantamine 4 mg PO BID 02/20/21 ofloxacin 1 drp LEFT EYE BID 02/20/21 carvedilol [Coreg] 6.25 mg PO BID #60 tab 02/21/21 furosemide [Lasix] 40 mg PO BID #60 tab 02/21/21
--- NOTE | 2021-02-21 14:28 | PCM.DC ---
Discharge Instructions Diet Discharge Diet: Low fat / Low cholesterol and 2000 mg Sodium Diet Activity Discharge Activity: Return to Normal Activity Follow Up Care Test Results: Test results from this visit will be discussed in further detail at your follow-up appointment, if applicable. Discharge Plan Admission Admit Date/Time: 02/20/21 13:19 Primary Reason for Your Visit: Syncope Attending Provider: Antonia Diaz Primary Care Provider: Minerva Martin Consulting Providers: Gurdeep Huang Discharge Orders/Prescriptions Prescriptions: New carvedilol [Coreg] 6.25 mg tablet 6.25 mg PO BID Qty: 60 RF: 0 furosemide [Lasix] 40 mg tablet 40 mg PO BID Qty: 60 RF: 0 Continued albuterol sulfate [ProAir HFA] 90 mcg/actuation HFA aerosol inhaler 2 puff INHALATION BID PRN (Reason: Sob &/Or Wheezing) RF: 0 gabapentin 100 mg capsule 100 mg PO QHS RF: 0 amitriptyline 50 mg tablet 50 mg PO QHS RF: 0 amoxicillin 500 mg tablet 500 mg PO DAILY RF: 0 lidocaine 5 % adhesive patch,medicated 1 patch topical DAILY@1100 PRN (Reason: Pain) RF: 0 hydrocortisone 5 mg tablet 5 mg PO DAILY RF: 0 magnesium oxide 400 mg (241.3 mg magnesium) tablet 400 mg PO .QODAY Qty: 30 RF: 0 Eliquis 2.5 mg tablet 2.5 mg PO BID RF: 0 ascorbate calcium (vitamin C) 500 mg tablet 500 mg PO DAILY RF: 0 omega-3 fatty acids [Fish Oil Concentrate] 1,000 mg capsule 1,000 mg PO DAILY RF: 0 vitamin E mixed 1,000 unit capsule 1,000 unit PO DAILY RF: 0 pravastatin 40 MG tablet 40 mg PO QHS RF: 0 multivitamin with folic acid 1 TABLET tablet 1 tab PO DAILY RF: 0 levothyroxine 88 MCG tablet 88 mcg PO QHS RF: 0 aspirin 81 MG tablet,chewable 81 mg PO DAILY@0800 RF: 0 citalopram 20 MG tablet 20 mg PO DAILY RF: 0 amiodarone 200 MG tablet 200 mg PO DAILY RF: 0 ofloxacin 0.3 % drops 1 drp LEFT EYE BID RF: 0 galantamine 4 mg tablet 4 mg PO BID RF: 0 brimonidine 0.2 % drops 1 drp EACH EYE BID RF: 0 potassium chloride 20 mEq tablet extended release 20 meq PO .every third day Qty: 30 RF: 3 Hold Instructions: hyperkalemia Discontinued furosemide 40 mg tablet 60 mg PO BID RF: 0 carvedilol 6.25 mg tablet 12.5 mg PO BID RF: 0 Referrals / Follow Up: Minerva Martin MD [Primary Care Provider] - In 1 Week Antonia Diaz DO [STAFF PHYSICIAN] - Gurdeep Huang MD [STAFF PHYSICIAN] - See Referral Note (As scheduled) Disposition Disposition (needs filled in before D/C Order can be placed): Home, Self Care
--- NOTE | 2021-02-21 14:39 | CASEMGMT ---
Addendum entered by Clemencia Saldaña 02/21/21 15:15: Call to Ania at [facility] and she states they should be able to accept pt. Pt updated, voices understanding. Jason LOAIZA CM Original Note: This RN CM to room with form, explanation done-pt voices understanding and signs form. Original to chart and copy to pt. Pt is interested in HHC and provided a list of HHC providers including quality and resource use data and consistent with the patient?s preferred geographic region, medical needs, and insurance network. Pt states she would like [facility] Referral faxed to [facility] initially. CM to follow. Jason LOAIZA CM
--- NOTE | 2021-02-21 15:32 | PCM.PN.CARD ---
Subjective Subjective The patient denies any ongoing chest discomfort or difficulty breathing. She has had no recurrence of the sensation of near syncope or syncope. She states her main concern is soreness on her right side from her fall and related injuries. Objective Data Vital Signs: Vital Signs Temp Pulse Resp BP Pulse Ox 97.5 F L 57 L 18 109/52 L 99 02/21/21 14:19 02/21/21 15:00 02/21/21 14:19 02/21/21 14:19 02/21/21 14:19 Oxygen Flow Rate (L/min) 1 Oxygen Delivery Method Nasal Cannula Weight: 176 lb 9.444 oz Body Mass Index (BMI) 25.3 Intake & Output: Intake and Output for Last 24 Hours 02/19/21 02/20/21 02/21/21 23:59 23:59 23:59 Intake Total 240 / 240 1215 / 1215 Balance 240 / 240 1215 / 1215 Lab / Micro Data Result Diagrams: 02/21/21 06:38 02/21/21 06:38 Labs: Laboratory Results - last 24 hr 02/20/21 16:40: Troponin I High Sens 91.6 H* 02/20/21 19:06: Troponin I High Sens 77.9 H* 02/20/21 23:00: Troponin I High Sens 67.8 H* 02/21/21 06:38: WBC 15.6 H, RBC 3.71 L, Hgb 12.0, Hct 37.8, MCV 101.9 H, MCH 32.3 H, MCHC 31.7 L, RDW Std Deviation 60.9 H, RDW Coeff of Jackie 16.2 H, Plt Count 236, MPV 9.6, Immature Gran % (Auto) 1.600 H, Neut % (Auto) 79.8 H, Lymph % (Auto) 7.3 L, Hart % (Auto) 9.7, Eos % (Auto) 1.4, Baso % (Auto) 0.2, Absolute Neuts (auto) 12.5 H, Absolute Lymphs (auto) 1.14, Nucleated RBC % 0, Diff Path Review Reviewed 02/21/21 06:38: Sodium 142, Potassium 3.6, Chloride 109 H, Carbon Dioxide 28.0, Anion Gap 5, BUN 46 H, Creatinine 1.67 H, Estim Creat Clear Calc 29.54, Est GFR (MDRD) Af Amer 38 L, Est GFR (MDRD) Non-Af 31 L, BUN/Creatinine Ratio 27.5 H, Glucose 79, Calcium 7.9 L, Phosphorus 2.7, Magnesium 2.5 Cardiology Labs/Tests 02/21/21 06:38: WBC 15.6 H, RBC 3.71 L, Hgb 12.0, Hct 37.8, MCV 101.9 H, MCH 32.3 H, MCHC 31.7 L, Plt Count 236, MPV 9.6, Immature Gran % (Auto) 1.600 H, Neut % (Auto) 79.8 H, Lymph % (Auto) 7.3 L, Hart % (Auto) 9.7, Eos % (Auto) 1.4, Baso % (Auto) 0.2, Absolute Neuts (auto) 12.5 H, Nucleated RBC % 0 02/21/21 06:38: Sodium 142, Potassium 3.6, Chloride 109 H, Carbon Dioxide 28.0, Anion Gap 5, BUN 46 H, Creatinine 1.67 H, Est GFR (MDRD) Af Amer 38 L, Est GFR (MDRD) Non-Af 31 L, BUN/Creatinine Ratio 27.5 H, Glucose 79, Calcium 7.9 L, Phosphorus 2.7, Magnesium 2.5 Rhythm: Sinus rhythm Radiography Diagnostic Testing: Radiology Impression Hand X-Ray 02/20/21 14:05 IMPRESSION: Degenerative changes. No acute abnormality is seen. Electronically Signed: Ed Fink MD at 8:44 EDT , Service support , Echocardiogram 02/20/21 17:58 Interpretation Summary The study was technically difficult. Contrast injection was performed. Severely dilated left ventricle. Severe global left ventricular systolic dysfunction. The estimated ejection fraction is 20 %. The left atrium is moderately enlarged. The right atrium is mildly enlarged. Stable appearing bioprosthetic mitral valve apparatus. Moderate (2+) transvalvular insufficiency of the mitral valve. Mild tricuspid valve insufficiency. Mild diffuse aortic valve thickening. Trivial pulmonic valve insufficiency. Right ventricular systolic pressure estimated to be 46 mmHg. Transmitral diastolic flow velocities suggest diastolic dysfunction (pseudonormal pattern). ICD or pacer leads identified within the right atrium ICD or pacer leads identified within the right ventricle. Ordering Physician: Gurdeep Huang Referring Physician: Minerva Martin Performed By: Dorothea Blair, KEITH, RVT Physical Exam Narrative The patient is awake and alert and appears to be in no acute distress. Const alert, oriented x3 and no apparent distress Orientation / Consciousness: awake HEENT normocephalic and hearing grossly normal bilaterally Eyes PERRL, EOMs intact bilaterally and conjunctivae normal Neck full ROM, supple and no JVD Chest Chest: midline sternotomy incision Resp clear to auscultation bilaterally Cardio regular rate, regular rhythm, S1 normal heart sound and S2 normal heart sound Heart Sounds: murmur systolic II/ soft mid left sternal border GI normal to inspection, nondistended, normoactive bowel sounds Extremity no pedal edema Skin General Skin Exam: ecchymosis Neuro oriented x3 and moves all extremities Psych mental status grossly normal Assessment & Plan Assessment/Plan (1) Syncope: QUALIFIERS: Syncope type: unspecified Qualified Code(s): R55 - Syncope and collapse PLAN: The patient experienced a syncopal event. There is concern based upon her complex cardiovascular history with a recent history of shifting volume status/shifting diuretic therapy as to whether or not the patient may have experienced an orthostatic hypotension event leading to her syncopal event, etc. She has not been shown to have any additional cardiac dysrhythmias. She has been evaluated with her ICD. It appears to be functioning appropriately. Thus far there is no report of any obvious cardiac dysrhythmias or ICD malfunction to explain her event. She is noted to have a somewhat elevated high-sensitivity TSH. Her levels have remained mildly elevated but have declined. Again she has a history of elevation of her cardiac enzymes in the past. Her echocardiogram demonstrates global left ventricular systolic dysfunction with findings similar to her previous echocardiographic studies with respect to systolic function and LVEF. At the present time her medications will be readjusted with decreasing her beta-braden dose and decreasing her diuretic dose to compensate for her lower pressures and potential lower volume status at this time which may have contributed to her event. Over time her medications may need to be readjusted. (2) Paroxysmal atrial fibrillation: PLAN: She has a history of atrial fibrillation. She is currently remaining on medical management which is included rate control therapy and 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 therapy. (3) Implantable cardioverter-defibrillator (ICD) in situ: PLAN: Again, her ICD was interrogated. It appears to be functioning appropriately with no concerns of cardiac dysrhythmias or antitach pacing or defibrillation. (4) Cardiomyopathy: QUALIFIERS: Cardiomyopathy type: dilated Qualified Code(s): I42.0 - Dilated cardiomyopathy PLAN: She does have a significant underlying non-CAD related cardiomyopathy. She has had to be treated medically with respect to monitoring her vital signs and her volume status with subsequent appropriate adjustment of medication as best as possible. Her echocardiogram is as noted. (5) History of mitral valve replacement with porcine valve: PLAN: She has a history of a mitral valve replacement. She has been evaluated locally and at [facility]. Her mitral valve apparatus appeared to be stable at this time. She does need to continue her AHA antibiotic prophylaxis and based upon her history of infectious endocarditis for long-term antibiotic therapy. 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 Her case was reviewed when she underwent her original evaluation and care and it was not thought that she was a candidate for any type of CT surgical based intervention with respect to her mitral valve. Thus she continued her chronic antibiotic therapy. (7) Atherosclerotic heart disease of [place] coronary artery with angina pectoris: QUALIFIERS: [place] vs. transplanted heart: [place] heart Qualified Code(s): I25.119 - Atherosclerotic heart disease of [place] coronary artery with unspecified angina pectoris PLAN: She has a history of nonangiographically significant CAD. She will continue risk factor evaluation care as deemed appropriate. (8) Hyperlipemia: QUALIFIERS: Hyperlipidemia type: unspecified Qualified Code(s): E78.5 - Hyperlipidemia, unspecified PLAN: She will continue medical management with adjustment as needed. (9) Leukocytosis: QUALIFIERS: Leukocytosis type: unspecified Qualified Code(s): D72.829 - Elevated white blood cell count, unspecified PLAN: She does have an elevated WBC. It has decreased. This may be secondary to her acute event. She will need to be monitored for any obvious infectious related etiologies-acute that would contribute to her event or findings. (10) Renal insufficiency: PLAN: She does have chronic renal insufficiency. Her creatinine level has improved since yesterday. This may be secondary to her recent volume shifts and medication shifts as described by her spouse. She will need to be monitored with respect to her volume status, her renal function, and her medications. (11) Abnormal cardiac enzyme level: PLAN: Again she does have abnormal cardiac enzymes. She has had a history of these findings. This is superimposed upon a history of a non-CAD related cardiomyopathy with significant left ventricular systolic dysfunction in the setting of chronic renal insufficiency. At the present time she will be followed in her enzymes can be followed and she can undergo noninvasive evaluation. She will continue medical therapy. There are no plans for any invasive evaluation at this time. Addt'l Comments Overall, at the present time, the plan is to continue to adjust the patient's medicine to compensate for her cardiovascular findings, vital signs, renal function, etc. There are no plans for additional cardiac diagnostic studies/intervention at this time. She will need continued outpatient follow-up with her other physicians regarding her recent injuries as well as continued outpatient cardiovascular follow-up. The patient's case has been discussed and reviewed the patient and Dr. Diaz. Thank you for allowing me to participate in the care of your patient. This note was generated using a voice recognition system and there may be incorrect words, spelling or punctuation that were not noted when reviewing the office note prior to saving.
--- NOTE | 2021-02-21 16:52 | CHAPLAIN ---
Type of Pastoral Visit _x__ Initial Visit ___ Follow-up Visit ___ On-call Visit ___ General Patient Visit ___ Spiritual Assessment ___ Family Conference ___ Bereavement ___ Rapid Response ___ Code Blue ___ Other (describe below) Pastoral Care Referral From _x__ Patient ___ Family ___ Nurse ___ Physician ___ Software Sales Executive ___ Studio Operations Manager ___ Other (describe below) Sacrament/Intervention _x__ Active listening ___ Anointing ___ Episcopal ___ Bereavement ___ Communion ___ Shelly exploration ___ _x__ Life review _x__ Prayer ___ Reconciliation ___ Sacrament of Sick _x__ Supportive presence ___ Wedding ___ Other (describe below) Pastoral Comments patient has been seen in previous admissions and has exhibited strong belief system and desire for spiritual care support; presence and prayer given; pt expects to return home but admits that she is discouraged by this turn of events and ongoing health concerns over past few years
== END 2021-02-21 14:07 | disposition home health service (06) ==
LOC: ED 11:43 → PCU 14:16
PROVIDERS: Admitting Provider Internal Medicine; Emergency Provider Emergency Medicine; PCP Internal Medicine; Visit Provider Internal Medicine
DX: R55 Syncope and collapse (principal); S81.011A Laceration without foreign body, right knee, initial encounter; W18.30XA Fall on same level, unspecified, initial encounter; Y93.89 Activity, other specified; Y92.89 Other specified places as the place of occurrence of the external cause; Y99.9 Unspecified external cause status; Z95.810 Presence of automatic (implantable) cardiac defibrillator; I25.10 Atherosclerotic heart disease of native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 without angina pectoris; I50.22 Chronic systolic (congestive) heart failure; E78.5 Hyperlipidemia, unspecified; G47.33 Obstructive sleep apnea (adult) (pediatric); I27.20 Pulmonary hypertension, unspecified; I13.0 Hypertensive heart and chronic kidney disease with heart failure and stage 1 through stage 4 chronic kidney disease, or unspecified chronic kidney disease; I48.19 Other persistent atrial fibrillation; I44.0 Atrioventricular block, first degree; R00.1 Bradycardia, unspecified; E27.40 Unspecified adrenocortical insufficiency; F41.8 Other specified anxiety disorders; N18.32 Chronic kidney disease, stage 3b; S00.11XA Contusion of right eyelid and periocular area, initial encounter; E03.9 Hypothyroidism, unspecified; R73.03 Prediabetes; J98.4 Other disorders of lung; Z95.3 Presence of xenogenic heart valve; Z86.73 Personal history of transient ischemic attack (TIA), and cerebral infarction without residual deficits; Z86.718 Personal history of other venous thrombosis and embolism; Z79.899 Other long term (current) drug therapy; Z79.82 Long term (current) use of aspirin; Z79.01 Long term (current) use of 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s
CPT/HCPCS: 12002; 36415; 70450; 71045; 73130; 73564; 80048; 83735; 84100; 84484; 85025; 93005; 93306; 94640; 96360; 96361; 97166; 99218; 99251; 99285; J7030; Q9957; A4216; C8929; G0378; G0463; J3490

== ENCOUNTER → 2021-02-27 15:37 | Outpatient (CLI) | payer MEDICARE, SELFPAY ==
[2021-02-20 15:36] VITALS: BMI 25.3
--- NOTE | 2021-02-27 15:40 | RAD_ITS ---
STUDY: X-RAY - UNILATERAL RIBS ( RIGHT ) REASON FOR EXAM: Female, 81 years old. RIB PAIN TECHNIQUE: 4 view(s) of the ribs. COMPARISON: None. FINDINGS: Normal visualized ribs without a demonstrated fracture. The visualized lung is clear and expanded. Sternal wires and mediastinal surgical clips compatible with prior CABG. Cardiac conduction device partially visualized. RAD/Ribs Unil 2V No CXR IMPRESSION: No demonstrated rib fracture. Electronically Signed: Woody Gruber MD (Brooks) at 16:38 EDT , Service support ,
== END ==
PROVIDERS: PCP Internal Medicine; Referring Provider Internal Medicine; Visit Provider Internal Medicine
DX: R07.81 Pleurodynia (principal)
CPT/HCPCS: 71100; 71110

== ENCOUNTER 2021-04-11 11:58 | Emergency (ER) | payer MEDICARE, SELFPAY ==
[2021-04-11 12:00] VITALS: BP 103/62; PULSE 71; RESP 18; TEMP 36.6; O2SAT 94; BMI 26.3
[2021-04-11 12:06] VITALS: BP 103/62; PULSE 73; RESP 16
--- NOTE | 2021-04-11 12:21 | EKG12_ITS ---
Test Reason : SYNCOPE Blood Pressure : / mmHG Vent. Rate : 073 BPM Atrial Rate : 073 BPM P-R Int : 296 ms QRS Dur : 150 ms QT Int : 488 ms P-R-T Axes : 106 -25 135 degrees QTc Int : 537 ms Sinus rhythm with 1st degree A-V block Left ventricular hypertrophy with QRS widening and repolarization abnormality Abnormal ECG Confirmed by ZOHREH TIRADO, ERENDIRA ([id number]), scientific publications editor JAMAAL SAHNI ([id number]) on 04/12/2021 12:52:21 PM Referred By: CRESENCIO Confirmed By:MARLENI BRUNER MD
[2021-04-11 12:30] LABS: Absolute Lymphocyte Count 1.15 X10^3/uL (0.83-4.51); Basophil# 0.06 X10^3/uL; Basophil% 0.4 % (0-1); Eosinophil# 0.76 X10^3/uL; Eosinophils% 4.5 % (0-5); Hematocrit 41.4 % (37-47); Hemoglobin 13.4 g/dL (12.0-15.0); Lymphocyte # 1.15 X10^3/ul (0.83-4.51); Lymphocyte % 6.9 % (19-41); Mean Corp Hgb Conc 32.4 g/dL (32-36); Mean Platelet Vol. 10.2 fl (6.2-12.0); Monocyte# 1.36 X10^3/uL; Monocyte% 8.1 % (0-10); NRBC Flagged by Analyzer 0 % (0-5); Neutrophil # 12.99 X10^3/uL (2.7-7.7); Neutrophil % 77.4 % (47-70); Platelet Count 287 K/mm3 (150-450); RBC Distribution Width CV 16.1 % (11.6-14.6); RBC Distribution Width SD 60.7 fl (35.1-43.9); Red Blood Count 4.06 M/mm3 (4.2-5.4); White Blood Count 16.8 K/mm3 (4.4-11.0)
[2021-04-11 12:57] LABS: ALB/GLOB Ratio 0.8 RATIO (0.9-2.4); AST(SGOT) 60 U/L (15-37); Alanine Aminotransfer ALT/SGPT 80 U/L (13-56); Albumin, Serum 3.1 g/dL (3.2-5.0); Alkaline Phosphatase 59 U/L (45-117); Anion Gap 4 (5-15); BUN 48 mg/dL (7-18); BUN/Creat Ratio 27.7 RATIO (10-20); Calcium,Total 8.8 mg/dL (8.5-10.1); Chloride 95 mmol/L (98-107); Creatinine, Serum 1.73 mg/dL (0.55-1.02); EST Glomerular Filtration Rate 30 mL/min (>60); Est Glom Filt Rate - Afr Amer 37 mL/min (>60); Estimated Creatinine Clearance 28.51 ml/min; Glucose 92 mg/dL (74-106); Potassium 4.5 mmol/L (3.5-5.1); Protein, Total 7.1 g/dL (6.4-8.2); Sodium Level 132 mmol/L (136-145); Troponin-I HS 68 pg/mL (3.0-54.0)
--- NOTE | 2021-04-11 13:02 | EDS_ITS ---
HPI History of Present Illness Chief Complaint: Syncope Narrative Narrative: Patient presents after a syncopal episode. She has had diarrhea over the past few days, she is feeling somewhat lightheaded she has dry mouth, she fell in between the car seats. She did not hit her head. She has no injuries and she has no chest pain or shortness of breath. She did not feel palpitations. She has a pacemaker and defibrillator but did not feel any shocks. She is anticoagulated on Eliquis. No pleuritic component. No vision changes. No urinary symptoms. [facility] Medical History (Updated 04/11/21 @ 13:[address] 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 DVT (deep venous thrombosis) Endocarditis HTN (hypertension) Hyperlipemia Hypothyroidism Implantable cardioverter-defibrillator (ICD) in situ intermediate current use of 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 Menopausal osteoporosis Non-smoker Nonrheumatic mitral (valve) prolapse On home oxygen therapy URMILA (obstructive sleep apnea) Paroxysmal atrial fibrillation Pre-syncope Prediabetes Pulmonary HTN Restrictive lung disease Seizures Sleep apnea Spondylosis of cervical joint Stroke Syncope TIA (transient ischemic attack) Home Medications multivitamin with folic acid 1 tab PO DAILY 11/16/15 [History Last Taken 02/20/21] albuterol sulfate 90 mcg/actuation aerosol inhaler 2 puff INHALATION BID PRN 09/10/17 [History Last Taken 02/20/21] pravastatin 40 mg tablet 40 mg PO QHS tab 09/11/17 [History Last Taken 02/19/21] levothyroxine 88 mcg PO QHS 06/22/18 [History Last Taken 02/19/21] gabapentin 100 mg capsule 100 mg PO QHS cap 07/15/18 [History Last Taken 02/19/21] aspirin 81 mg PO DAILY@0800 09/07/18 [History Last Taken 02/20/21] amitriptyline 50 mg tablet 50 mg PO QHS 10/15/18 [History Last Taken 02/19/21] citalopram 20 mg PO DAILY 08/13/19 [History Last Taken 02/20/21] amiodarone 200 mg PO DAILY tab 09/28/19 [Rx Last Taken Unknown] magnesium oxide 400 mg (241.3 mg magnesium) tablet 400 mg PO .QODAY #30 tab 12/08/19 [Rx Last Taken 02/20/21] amoxicillin 500 mg tablet 500 mg PO DAILY tab 02/02/20 [History Last Taken 02/20/21] lidocaine 5 % topical patch 1 patch TOPICAL DAILY@1100 PRN patch 02/02/20 [History Last Taken 02/17/21] apixaban 2.5 mg tablet 2.5 mg PO BID 09/04/20 [History Last Taken 02/20/21] ascorbate calcium (vitamin C) 500 mg tablet 500 mg PO DAILY 11/08/20 [History Last Taken 02/20/21] hydrocortisone 5 mg tablet 5 mg PO DAILY 11/08/20 [History Last Taken 02/20/21] omega-3 fatty acids 1,000 mg capsule 1,000 mg PO DAILY 11/08/20 [History Last Taken 02/20/21] vitamin E mixed 1,000 unit capsule 1,000 unit PO DAILY 11/08/20 [History Last Taken 02/20/21] potassium chloride 20 mEq tablet,extended release 20 meq PO .every third day #30 tab 02/05/21 [Rx Last Taken 02/18/21] brimonidine 1 drp EACH EYE BID 02/20/21 [History Last Taken 02/20/21] ofloxacin 1 drp LEFT EYE BID 02/20/21 [History Last Taken 02/20/21] carvedilol [Coreg] 6.25 mg PO BID #60 tab 02/21/21 [Rx Last Taken Unknown] furosemide [Lasix] 40 mg PO BID #60 tab 02/21/21 [Rx Last Taken Unknown] cholecalciferol (vitamin D3) 25 mcg (1,000 unit) capsule 25 mcg PO DAILY 03/07/21 [History Last Taken Unknown] Allergy/AdvReac Type Severity Reaction Status Date / Time levofloxacin [Levofloxacin] Allergy Hives Verified 04/11/21 12:00 sacubitril [From Entresto] Allergy itching Verified 04/11/21 12:00 valsartan [From Entresto] Allergy itching Verified 04/11/21 12:00 warfarin [From Coumadin] Allergy Other Verified 04/11/21 12:00 torsemide [From Demadex] AdvReac Intermediate Rash Verified 04/11/21 12:00 Family History Father CVA (cerebral vascular accident) Mother Cancer bone Sister Cancer bone Diabetes Surgical History AICD (automatic cardioverter/defibrillator) present History of bilateral hip replacements History of bilateral knee replacement History of cataract surgery History of embolic filter insertion History of hysterectomy History of mitral valve replacement with porcine valve Social History Smoking Status: Never smoker second hand exposure: No alcohol intake: never substance use type: does not use caffeine: No ROS ROS ED ROS Narrative Past medical history: Reviewed, includes history of cardiomyopathy, history of arrhythmias, chronic renal insufficiency, history of DVT, history of CVA history of adrenal insufficiency. Medications: Reviewed Social history: Noncontributory Review of systems: All systems negative except as indicated General: No fever she does admit to generalized weakness.. No head injury Eyes: No visual changes ENT: No upper airway congestion, normal voice Neck: No neck pain Cardiovascular: No chest pain. Syncope as in HPI Respiratory: No shortness of breath or cough Gastrointestinal: No abdominal pain, nausea vomiting or diarrhea Genitourinary: No dysuria Musculoskeletal: Denies myalgias no difficulty with ambulation Skin: No rash Neurological: No memory loss, confusion or any focal weakness Psych: No recent behavioral changes Hematologic: She is on Eliquis and is noticed increased bruising while being on it. EXAM Physical Exam Narrative Exam Narrative: Physical exam General: Patient does not appear in any distress. Head: Normocephalic, Atraumatic Eyes: Conjunctiva not pale ENT: Dry mucous membranes Neck: Supple, Nontender, No lymphadenopathy Cardiovascular: Regular rate, Regular rhythm. No obvious murmur Respiratory: No distress, CTA bilaterally Abdomen: Soft, Nontender, Nondistended Back: Nontender, Normal Inspection. Negative for: CVA tenderness Extremities: Nontender, No edema Skin: Normal color, No rash Neurological: Alert, Normal Strength, Normal Sensation Psychological: Normal affect Const Vital Signs: 04/11/21 12:00 04/11/21 12:06 04/11/21 12:10 Temperature 97.9 F Temperature Source Oral Pulse Rate 71 73 Pulse Rate [Lying] Pulse Rate [Sitting] Pulse Rate [Standing] Respiratory Rate 18 16 Respiratory Effort Normal Respiratory Pattern Normal Blood Pressure 103/62 103/62 Blood Pressure [Lying] Blood Pressure [Sitting] Blood Pressure [Standing] Blood Pressure Mean 75 75 Blood Pressure Mean [Lying] Blood Pressure Mean [Sitting] Blood Pressure Mean [Standing] Pulse Ox 94 Oxygen Delivery Method Nasal Cannula Oxygen Flow Rate (L/min) 3 04/11/21 13:17 Temperature Temperature Source Pulse Rate Pulse Rate [Lying] 75 Pulse Rate [Sitting] 79 Pulse Rate [Standing] 81 Respiratory Rate Respiratory Effort Respiratory Pattern Blood Pressure Blood Pressure [Lying] 91/58 L Blood Pressure [Sitting] 96/69 Blood Pressure [Standing] 64/47 L Blood Pressure Mean Blood Pressure Mean [Lying] 69 Blood Pressure Mean [Sitting] 78 Blood Pressure Mean [Standing] 52 Pulse Ox Oxygen Delivery Method Oxygen Flow Rate (L/min) MDM MDM MDM Narrative Medical decision making narrative: Patient has slight leukocytosis although this has been chronic. Otherwise her work-up is unremarkable. She appears well she has very positive orthostatics and she has dry mucous membranes she was hydrated and she improved. Interrogation of the pacemaker did not show any arrhythmias or cardiac events. Since she improved I believe she is stable for discharge. Lab Data Labs: Laboratory Results - last 24 hr 04/11/21 04/11/21 12:13 12:13 WBC 16.8 H RBC 4.06 L Hgb 13.4 Hct 41.4 MCV 102.0 H MCH 33.0 H MCHC 32.4 RDW Std Deviation 60.7 H RDW Coeff of Jackie 16.1 H Plt Count 287 MPV 10.2 Immature Gran % (Auto) 2.700 H Neut % (Auto) 77.4 H Lymph % (Auto) 6.9 L Towns % (Auto) 8.1 Eos % (Auto) 4.5 Baso % (Auto) 0.4 Absolute Neuts (auto) 13.0 H Absolute Lymphs (auto) 1.15 Nucleated RBC % 0 Sodium 132 L Potassium 4.5 Chloride 95 L Carbon Dioxide 33.0 H Anion Gap 4 L BUN 48 H Creatinine 1.73 H Estim Creat Clear Calc 28.51 Est GFR (MDRD) Af Amer 37 L Est GFR (MDRD) Non-Af 30 L BUN/Creatinine Ratio 27.7 H Glucose 92 Calcium 8.8 Total Bilirubin 0.50 AST 60 H ALT 80 H Alkaline Phosphatase 59 Troponin I High Sens 68 H Total Protein 7.1 Albumin 3.1 L Globulin 4.0 Albumin/Globulin Ratio 0.8 L Radiography Diagnostic Testing: Radiology Impression Chest X-Ray 04/11/21 13:10 IMPRESSION: Chronic interstitial changes, no superimposed acute pulmonary process Electronically Signed: Josesito Osborn MD at 13:25 EDT , Service support , EKG Initial EKG: Attestation: I personally reviewed and interpreted this EKG as follows: Comments: Sinus rhythm with a prolonged OH interval of 296. QTC is also slightly prolonged at 537. LVH is present. Nonspecific ST changes throughout present. Discharge Plan Triage Chief Complaint: Syncope ED Provider: Gurdeep Leon Dx/Rx/DC Orders Clinical Impression: Acute dehydration Instructions: Dehydration Prescriptions: No Action albuterol sulfate [ProAir HFA] 90 mcg/actuation HFA aerosol inhaler 2 puff INHALATION BID PRN (Reason: Sob &/Or Wheezing) RF: 0 gabapentin 100 mg capsule 100 mg PO QHS RF: 0 amitriptyline 50 mg tablet 50 mg PO QHS RF: 0 amoxicillin 500 mg tablet 500 mg PO DAILY RF: 0 lidocaine 5 % adhesive patch,medicated 1 patch topical DAILY@1100 PRN (Reason: Pain) RF: 0 hydrocortisone 5 mg tablet 5 mg PO DAILY RF: 0 magnesium oxide 400 mg (241.3 mg magnesium) tablet 400 mg PO .QODAY Qty: 30 RF: 0 cholecalciferol (vitamin D3) 25 mcg (1,000 unit) capsule 25 mcg PO DAILY RF: 0 Eliquis 2.5 mg tablet 2.5 mg PO BID RF: 0 ascorbate calcium (vitamin C) 500 mg tablet 500 mg PO DAILY RF: 0 omega-3 fatty acids [Fish Oil Concentrate] 1,000 mg capsule 1,000 mg PO DAILY RF: 0 vitamin E mixed 1,000 unit capsule 1,000 unit PO DAILY RF: 0 pravastatin 40 MG tablet 40 mg PO QHS RF: 0 multivitamin with folic acid 1 TABLET tablet 1 tab PO DAILY RF: 0 levothyroxine 88 MCG tablet 88 mcg PO QHS RF: 0 aspirin 81 MG tablet,chewable 81 mg PO DAILY@0800 RF: 0 citalopram 20 MG tablet 20 mg PO DAILY RF: 0 amiodarone 200 MG tablet 200 mg PO DAILY RF: 0 ofloxacin 0.3 % drops 1 drp LEFT EYE BID RF: 0 brimonidine 0.2 % drops 1 drp EACH EYE BID RF: 0 carvedilol [Coreg] 6.25 mg tablet 6.25 mg PO BID Qty: 60 RF: 0 furosemide [Lasix] 40 mg tablet 40 mg PO BID Qty: 60 RF: 0 potassium chloride 20 mEq tablet extended release 20 meq PO .every third day Qty: 30 RF: 3 Hold Instructions: hyperkalemia Primary Care Provider: Minerva Martin Referrals: Minerva Martin MD [Primary Care Provider] - 2 Days Disposition Disposition: Home, Self Care
--- NOTE | 2021-04-11 13:10 | RAD_ITS ---
STUDY: X-RAY CHEST REASON FOR EXAM: Female, 81 years old. Weakness TECHNIQUE: Single AP portable view of the chest. COMPARISON: 02/20/2021 FINDINGS: EKG leads overlie the chest. Stable appearance of a left subclavian pacemaker There are interstitial changes of the lungs. There is no demonstrated pleural abnormality. Sternal cerclage wires and vascular clips are present from a prior sternotomy and coronary artery bypass graft procedure (CABG). Normal mediastinum and juana. Normal visualized pulmonary arteries. Normal visualized aortic arch and descending thoracic aorta. There are diffuse degenerative changes of the visualized thoracic spine. Normal visualized ribs, clavicles, and shoulders. There is no demonstrated abnormality of the visualized soft tissue structures of the upper abdomen. RAD/Chest 1 View (Portable) IMPRESSION: Chronic interstitial changes, no superimposed acute pulmonary process Electronically Signed: Josesito Osborn MD at 13:25 EDT , Service support ,
[2021-04-11 13:17] VITALS: BP 64/47; BP 91/58; BP 96/69; PULSE 75; PULSE 79; PULSE 81
[2021-04-11 14:31] VITALS: BP 107/69; PULSE 76; RESP 18
== END 2021-04-11 15:23 | disposition home or self-care (01) ==
PROVIDERS: Emergency Provider Emergency Medicine; PCP Internal Medicine
DX: E86.0 Dehydration (principal); E03.9 Hypothyroidism, unspecified; E78.5 Hyperlipidemia, unspecified; I13.0 Hypertensive heart and chronic kidney disease with heart failure and stage 1 through stage 4 chronic kidney disease, or unspecified chronic kidney disease; I42.9 Cardiomyopathy, unspecified; I50.22 Chronic systolic (congestive) heart failure; I48.0 Paroxysmal atrial fibrillation; I25.10 Atherosclerotic heart disease of native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 without angina pectoris; Z95.0 Presence of cardiac pacemaker; Z86.73 Personal history of transient ischemic attack (TIA), and cerebral infarction without residual deficits; Z86.718 Personal history of other venous thrombosis and embolism; Z79.899 Other long term (current) drug therapy; Z79.82 Long term (current) use of aspirin; Z79.01 Long term (current) use of 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s
CPT/HCPCS: 71045; 80053; 84484; 85025; 93005; 96360; 96361; 99285; J7040; A4216

== ENCOUNTER 2021-04-22 18:38 | Inpatient (IN) | payer MEDICARE, SELFPAY ==
[2021-04-22] VITALS (14 sets, daily range): BP systolic 84–107; BP diastolic 55–81; PULSE 86–149; RESP 22–36; TEMP 36.6–37.2; O2SAT 91–97; BMI 25.9; BMI 25.8
--- NOTE | 2021-04-22 18:55 | EKG12_ITS ---
Test Reason : CP Blood Pressure : / mmHG Vent. Rate : 142 BPM Atrial Rate : 142 BPM P-R Int : 168 ms QRS Dur : 152 ms QT Int : 298 ms P-R-T Axes : 058 -28 156 degrees QTc Int : 458 ms Sinus tachycardia Left bundle branch block Abnormal ECG Confirmed by ADAM TIRADO, LAUREN ([id number]), photographic editor JAMAAL SAHNI ([id number]) on 04/23/2021 1:49:18 PM Referred By: RU Confirmed By:LAUREN MEDINA MD
--- NOTE | 2021-04-22 18:58 | EDS_ITS ---
HPI History of Present Illness Chief Complaint: General Illness Detail of Chief Complaint: Not feeling well for the last 3 days Informant: patient Narrative Narrative: Patient presents to the emergency department stating that she is not been feeling well for the last 3 days. Patient complains of a cough as well as body aches and headache. Patient has had the Covid vaccine. She denies any exposures to Covid. She denies any chest pain. Patient does have history of A. fib, coronary artery disease, CHF, hypothyroidism, and history of DVT. Patient anticoagulated with apixaban. Prior similar symptoms: No PFSH PFSH Medical History (Updated 04/22/21 @ 21:[address] 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 (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 Menopausal osteoporosis Non-smoker Nonrheumatic mitral (valve) prolapse On home oxygen therapy URMILA (obstructive sleep apnea) Paroxysmal atrial fibrillation Pre-syncope Prediabetes Pulmonary HTN Restrictive lung disease Seizures Sleep apnea Spondylosis of cervical joint Stroke Syncope TIA (transient ischemic attack) Home Medications multivitamin with folic acid 1 tab PO DAILY 11/16/15 [History Last Taken 04/22/21] albuterol sulfate 90 mcg/actuation aerosol inhaler 2 puff INHALATION BID PRN 09/10/17 [History Last Taken 04/22/21] pravastatin 40 mg tablet 40 mg PO QHS tab 09/11/17 [History Last Taken 04/21/21] levothyroxine 88 mcg PO QHS 06/22/18 [History Last Taken 04/22/21] gabapentin 100 mg capsule 100 mg PO QHS cap 07/15/18 [History Last Taken 04/21/21] aspirin 81 mg PO DAILY@0800 09/07/18 [History Last Taken 04/22/21] amitriptyline 50 mg tablet 50 mg PO QHS 10/15/18 [History Last Taken 04/21/21] citalopram 20 mg PO DAILY 08/13/19 [History Last Taken 04/22/21] amiodarone 200 mg PO DAILY tab 09/28/19 [Rx Last Taken 04/22/21] magnesium oxide 400 mg (241.3 mg magnesium) tablet 400 mg PO .QODAY #30 tab 12/08/19 [Rx Last Taken 04/22/21] amoxicillin 500 mg tablet 500 mg PO DAILY tab 02/02/20 [History Last Taken 04/22/21] lidocaine 5 % topical patch 1 patch TOPICAL DAILY@1100 PRN patch 02/02/20 [History Last Taken 04/21/21] apixaban 2.5 mg tablet 2.5 mg PO BID 09/04/20 [History Last Taken 04/22/21] ascorbate calcium (vitamin C) 500 mg tablet 500 mg PO DAILY 11/08/20 [History Last Taken 04/22/21] hydrocortisone 5 mg tablet 5 mg PO DAILY 11/08/20 [History Last Taken 04/22/21] omega-3 fatty acids 1,000 mg capsule 1,000 mg PO DAILY 11/08/20 [History Last Taken 04/22/21] vitamin E mixed 1,000 unit capsule 1,000 unit PO DAILY 11/08/20 [History Last Taken 04/22/21] potassium chloride 20 mEq tablet,extended release 20 meq PO .every third day #30 tab 02/05/21 [Rx Last Taken 04/22/21] brimonidine 1 drp EACH EYE BID 02/20/21 [History Last Taken 04/22/21] ofloxacin 1 drp LEFT EYE BID 02/20/21 [History Last Taken 04/22/21] carvedilol [Coreg] 6.25 mg PO BID #60 tab 02/21/21 [Rx Last Taken 04/22/21] furosemide [Lasix] 40 mg PO BID #60 tab 02/21/21 [Rx Last Taken 04/22/21] cholecalciferol (vitamin D3) 25 mcg (1,000 unit) capsule 25 mcg PO DAILY 03/07/21 [History Last Taken 04/22/21] Allergy/AdvReac Type Severity Reaction Status Date / Time levofloxacin [Levofloxacin] Allergy Hives Verified 04/22/21 18:40 sacubitril [From Entresto] Allergy itching Verified 04/22/21 18:40 valsartan [From Entresto] Allergy itching Verified 04/22/21 18:40 warfarin [From Coumadin] Allergy Other Verified 04/22/21 18:40 torsemide [From Demadex] AdvReac Intermediate Rash Verified 04/22/21 18:40 Family History Father CVA (cerebral vascular accident) Mother Cancer bone Sister Cancer bone Diabetes Surgical History (Updated 04/22/21 @ 18:46 by Reuben Valdez) AICD (automatic cardioverter/defibrillator) present History of bilateral hip replacements History of bilateral knee replacement History of cataract surgery History of embolic filter insertion History of heart valve replacement History of hysterectomy History of mitral valve replacement with porcine valve Social History Smoking Status: Never smoker second hand exposure: No alcohol intake: never substance use type: does not use caffeine: No ROS ROS ED ROS Narrative Generalized fatigue Constitutional Constitutional ED: Reports systems reviewed and no addt'l complaints, except as documented; Denies body ache(s), change in weight or chills Eyes Eyes: Denies acute decrease in peripheral vision, change in vision, double vision or loss of vision ENT ENT ED: Reports none; Denies ear pain, lip swelling, loss taste/smell, neck pain, otalgia or sore throat Cardiovascular Cardiovascular: Reports none; Denies abdominal pain, chest pain with activity, leg edema, lightheadedness, palpitations, rapid heart rate or syncope Respiratory/Chest Respiratory/Chest: Reports none, cough and dyspnea on exertion; Denies change in mental status, dry cough, dyspnea, hemoptysis, shortness of breath at rest or shortness of breath with exertion Gastrointestinal Gastrointestinal: Reports none; Denies abdominal pain, change in stool c haracter, diarrhea, hematemesis, hematochezia, melena, rectal bleeding or vomiting Genitourinary Genitourinary ED: Reports none; Denies abdominal discomfort, anuria, dysuria, genital pain or polyuria Musculoskeletal Musculoskeletal: Reports myalgias Integumentary Reports none; Denies abscess or rash Neurologic Neurologic: Reports none; Denies abnormal gait, confusion, focal weakness, frequent falls, headache(s), loss of vision, numbness, paresthesias, radicular pain, vertigo or weakness Psychiatric Psychiatric: Reports systems reviewed and no addt'l complaints, except as documented and none; Denies behavioral changes, confusion, difficulty concentrating, hallucinations, suicidal ideation, tactile hallucinations or visual hallucinations Endocrine Endocrinology: Denies none, cold intolerance, excessive sweating, fatigue or heat intolerance Hematologic/Lymphatic Hematologic/Lymphatic: Reports none; Denies anemia, easy bleeding or easy bruising Allergic/Immunologic Allergic/Immunologic ED: Denies as per HPI, none, lip swelling, mouth swelling, throat swelling, tongue swelling or hives EXAM Physical Exam Const Vital Signs: 04/22/21 18:40 04/22/21 18:44 04/22/21 19:05 Temperature 98.5 F 98.5 F Temperature Source Oral Oral Pulse Rate 141 H 141 H 149 H Respiratory Rate 35 H 22 H 36 H Respiratory Effort Normal Respiratory Pattern Normal Blood Pressure 107/74 107/74 98/58 L Blood Pressure Mean 85 85 71 Pulse Ox 97 96 95 Oxygen Delivery Method Room Air Room Air Room Air Oxygen Flow Rate (L/min) 04/22/21 19:13 04/22/21 19:23 04/22/21 19:29 Temperature Temperature Source Pulse Rate 132 H 132 H 130 H Respiratory Rate 30 H 32 H 30 H Respiratory Effort Respiratory Pattern Blood Pressure 88/73 L 106/81 H 90/69 Blood Pressure Mean 78 89 76 Pulse Ox 94 95 94 Oxygen Delivery Method Nasal Cannula Nasal Cannula Nasal Cannula Oxygen Flow Rate (L/min) 93 2 2 04/22/21 19:33 04/22/21 19:40 04/22/21 20:06 Temperature 98.9 F Temperature Source Temporal Pulse Rate 117 H 110 H 101 H Respiratory Rate 35 H 29 H 32 H Respiratory Effort Respiratory Pattern Blood Pressure 84/66 L 101/57 L 92/64 Blood Pressure Mean 72 71 73 Pulse Ox 93 94 95 Oxygen Delivery Method Nasal Cannula Nasal Cannula Nasal Cannula Oxygen Flow Rate (L/min) 2 2 4 Positive well nourished and well developed General Appearance ED: well developed and NAD HEENT Reports TM's clear and moist mucous membranes normocephalic and atraumatic; Negative for trauma or tenderness Tympanic Membrane ED: Yes TM's clear Eyes PERRL and EOMs intact bilaterally General Eye ED: Negative for pale conjunctiva or scleral icterus Neck no lymphadenopathy, supple and no JVD General: Negative for tenderness Chest Wall inspection of chest normal and palpation of chest normal Chest: Negative for tenderness Resp normal respiratory effort and clear to auscultation bilaterally Resp Narrative: Few rales noted in the bases. Good aeration bilaterally. Effort and Inspection: Negative for respiratory distress or pain with movement Auscultation: Negative for rhonchi, wheezes or diminished lung sounds Cardio regular rate, S1 normal heart sound, S2 normal heart sound and no murmurs Rate: tachycardic Peripheral Pulses: pulses 2+ throughout GI normal to inspection, nondistended, normoactive bowel sounds, soft to palpation, non-tender, non-distended and no masses Back/Spine no CVA tenderness and no thoracic nor lumbar tenderness Extremity normal to inspection General Extremety ED: Negative for edema General Extremity: Negative for edema Neuro oriented x3, CN's II-XII intact bilaterally, no sensory deficits noted and gait normal Sensorium / Orientation: awake, alert, oriented to person, oriented to place and oriented to time Motor Exam: strength 5/5 throughout and strength abnormal Psych mental status grossly normal Skin no rashes or lesions noted and no wounds MDM MDM MDM Narrative Medical decision making narrative: Results discussed with patient. Her COVID-19 test rapid was negative. Patient was noted to have bilateral airspace opacities which may represent edema and/or infection. Patient does have an elevated white blood cell count but has been chronic since February. Patient was started on Rocephin and Zithromax. Patient also has an elevated BNP. While in the department her heart rate did improve into the 70s spontaneously without any Cardizem however she did also drop her blood pressure with systolic in the 70s. This responded to some fluid. Case discussed with hospitalist will evaluate patient for admission. Hospitalist feels patient likely has pulmonary edema related to her tachycardia and given her issues of chronic elevation of her white count he did not feel her symptoms were consistent with pneumonia and did not want the antibiotics given. Patient will be admitted and hospice will be consulted tomorrow. Lab Data Attestation: I reviewed the patient's lab results. Labs: Laboratory Results - last 24 hr 04/22/21 04/22/21 04/22/21 18:46 18:46 18:46 WBC 16.9 H RBC 3.81 L Hgb 12.7 Hct 38.7 MCV 101.6 H MCH 33.3 H MCHC 32.8 RDW Std Deviation 59.3 H RDW Coeff of Jackie 15.9 H Plt Count 257 MPV 10.0 Immature Gran % (Auto) 0.700 Neut % (Auto) 86.4 H Lymph % (Auto) 4.4 L [place] % (Auto) 7.2 Eos % (Auto) 0.9 Baso % (Auto) 0.4 Absolute Neuts (auto) 14.6 H Absolute Lymphs (auto) 0.74 L Nucleated RBC % 0 Sodium 137 Potassium 4.5 Chloride 103 Carbon Dioxide 22.0 Anion Gap 12 BUN 30 H Creatinine 1.50 H Estim Creat Clear Calc 32.89 Est GFR (MDRD) Af Amer 43 L Est GFR (MDRD) Non-Af 36 L BUN/Creatinine Ratio 20.0 Glucose 167 H Calcium 9.3 Troponin I High Sens 71 H B-Natriuretic Peptide 1048.6 H Radiography Chest X-Ray - ED: 1 View Diagnostic Testing: Radiology Impression Chest X-Ray 04/22/21 19:06 IMPRESSION: Bilateral airspace opacities may represent edema and/or infection. Electronically Signed: Severiano uS MD at 19:36 EDT Tel , Service support , 1 view chest x-ray obtained interpreted by myself as bilateral infiltrates. Radiology read the x-ray as bilateral airspace opacities which may represent edema and/or infection. EKG Initial EKG: Comments: EKG showed a tachycardia with a ventricular rate of 142 bpm with a left bundle branch block. Computer thought it was sinus however given her history of A. fib and flutter I suspect this could possibly be flutter as well. Discharge Plan Dx/Rx/DC Orders Clinical Impression: Tachycardia, Pulmonary edema Disposition Disposition: Acute Care Hospital [facility]
--- NOTE | 2021-04-22 19:04 | ED.RN ---
IV FLUIDS HUNG UNABLE TO SCAN
--- NOTE | 2021-04-22 19:06 | RAD_ITS ---
INDICATION: cough EXAMINATION/TECHNIQUE: X-RAY - XR Chest 1 View COMPARISON: None. FINDINGS: Bilateral airspace opacities. Sternal cerclage wires and vascular clips are present from a prior sternotomy and coronary artery bypass graft procedure (CABG). Left-sided cardiac device. No pleural effusion or pneumothorax. No acute osseous abnormalities. RAD/Chest 1 View (Portable) IMPRESSION: Bilateral airspace opacities may represent edema and/or infection. Electronically Signed: Severiano Su MD at 19:36 EDT Tel , Service support ,
[2021-04-22 19:07] LABS: Absolute Lymphocyte Count 0.74 X10^3/uL (0.83-4.51); Absolute Neutrophil Count 14.6 X10^3/uL (2.0-7.7); Basophil# 0.06 X10^3/uL; Basophil% 0.4 % (0-1); Eosinophil# 0.16 X10^3/uL; Eosinophils% 0.9 % (0-5); Hematocrit 38.7 % (37-47); Hemoglobin 12.7 g/dL (12.0-15.0); Lymphocyte # 0.74 X10^3/ul (0.83-4.51); Lymphocyte % 4.4 % (19-41); Mean Corp Hgb Conc 32.8 g/dL (32-36); Mean Corpuscular Hgb 33.3 pg (27.0-32.0); Mean Corpuscular Volume 101.6 fL (81-99); Monocyte# 1.22 X10^3/uL; Monocyte% 7.2 % (0-10); NRBC Flagged by Analyzer 0 % (0-5); Neutrophil # 14.57 X10^3/uL (2.7-7.7); Neutrophil % 86.4 % (47-70); Platelet Count 257 K/mm3 (150-450); RBC Distribution Width CV 15.9 % (11.6-14.6); RBC Distribution Width SD 59.3 fl (35.1-43.9); Red Blood Count 3.81 M/mm3 (4.2-5.4); White Blood Count 16.9 K/mm3 (4.4-11.0)
--- NOTE | 2021-04-22 19:12 | ED.RN ---
PERT DR SHAIKH, WITH BP 98/58 HOLD CARDIZEM AT THIS TIME. GIVE 500ML BOLUS
[2021-04-22 19:25] LABS: Anion Gap 12 (5-15); BUN 30 mg/dL (7-18); Calcium,Total 9.3 mg/dL (8.5-10.1); Chloride 103 mmol/L (98-107); EST Glomerular Filtration Rate 36 mL/min (>60); Est Glom Filt Rate - Afr Amer 43 mL/min (>60); Estimated Creatinine Clearance 32.89 ml/min; Glucose 167 mg/dL (74-106); Potassium 4.5 mmol/L (3.5-5.1); Sodium Level 137 mmol/L (136-145); Troponin-I HS 71 pg/mL (3.0-54.0)
[2021-04-22 19:27] LABS: BNP,B-Type NATRIURETIC PEPTIDE 1048.6 pg/mL (0-100)
[2021-04-22] MEDS: dilTIAZem 25 MG/5 ML Vial 20 MG IV BOLUS (20:13)
--- NOTE | 2021-04-22 21:25 | ED.RN ---
after evaluation by hospitalist. ed dr agreed to hold antibiotics and fluids. akilah corea rn [id number]
--- NOTE | 2021-04-22 21:49 | ED.RN ---
santa(son) [phone] dorene(daughter) [phone] call with updates or critical changes.
--- NOTE | 2021-04-22 22:22 | HP.PCM.HOS_ITS ---
HPI - General General Date of Admission: 04/22/21 HPI Narrative IRIS DAVENPORT, is a 81 F who presents to the hospital with a general illness. She states that she has been feeling unwell for the last several days. She did present home earlier this week and was discharged today from the ER. She does have an extensive and complicated history with chronic kidney disease as well as severe ischemic cardiomyopathy with ejection fraction of 15%. She does have an ICD/pacemaker in place but according to the it does not seem to be working as she is gone down to having a heart rate of 42 or like today had a heart rate of 140. She also recently had history of endocarditis and is on chronic antibiotics for it. She presents today because she has needed little bit more oxygen than her baseline of 2 L. Her did increase her oxygen today to 3 L, and noticed that she was getting more short of breath with her heart rate being in the 140s. In the ER she was found to have pulmonary congestion, her BNP was elevated at thousand but this is around her baseline and her troponin was also elevated to 71 which is also around her baseline. Her white count is better than it was in February though still elevated at 16.9. In the ER her Covid antigen was negative and a PCR is pending. She was given IV fluids secondary to possible pneumonia and hypotension. [facility] Medical History (Updated 04/22/21 @ 22:[address] 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) 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 of 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 Menopausal osteoporosis Non-smoker Nonrheumatic mitral (valve) prolapse On home oxygen therapy URMILA (obstructive sleep apnea) Paroxysmal atrial fibrillation Pre-syncope Prediabetes Pulmonary HTN Restrictive lung disease Seizures Sleep apnea Spondylosis of cervical joint Stroke Syncope TIA (transient ischemic attack) Home Medications multivitamin with folic acid 1 tab PO DAILY 11/16/15 [History Last Taken 0 04/22/21] albuterol sulfate 90 mcg/actuation aerosol inhaler 2 puff INHALATION BID PRN 09/10/17 [History Last Taken 04/22/21] pravastatin 40 mg tablet 40 mg PO QHS tab 09/11/17 [History Last Taken 07/01] levothyroxine 88 mcg PO QHS 06/22/18 [History Last Taken 04/22/21] gabapentin 100 mg capsule 100 mg PO QHS cap 07/15/18 [History Last Taken 04/21/21] aspirin 81 mg PO DAILY@0800 09/07/18 [History Last Taken 04/22/21] amitriptyline 50 mg tablet 50 mg PO QHS 10/15/18 [History Last Taken 04/21/21] citalopram 20 mg PO DAILY 08/13/19 [History Last Taken 04/22/21] amiodarone 200 mg PO DAILY tab 09/28/19 [Rx Last Taken 04/22/21] magnesium oxide 400 mg (241.3 mg magnesium) tablet 400 mg PO .QODAY #30 tab 12/08/19 [Rx Last Taken 04/22/21] amoxicillin 500 mg tablet 500 mg PO DAILY tab 02/02/20 [History Last Taken 04/22/21] lidocaine 5 % topical patch 1 patch TOPICAL DAILY@1100 PRN patch 02/02/20 [History Last Taken 04/21/21] apixaban 2.5 mg tablet 2.5 mg PO BID 09/04/20 [History Last Taken 04/22/21] ascorbate calcium (vitamin C) 500 mg tablet 500 mg PO DAILY 11/08/20 [History Last Taken 04/22/21] hydrocortisone 5 mg tablet 5 mg PO DAILY 11/08/20 [History Last Taken 04/22/21] omega-3 fatty acids 1,000 mg capsule 1,000 mg PO DAILY 11/08/20 [History Last Taken 04/22/21] vitamin E mixed 1,000 unit capsule 1,000 unit PO DAILY 11/08/20 [History Last Taken 04/22/21] potassium chloride 20 mEq tablet,extended release 20 meq PO .every third day #30 tab 02/05/21 [Rx Last Taken 04/22/21] brimonidine 1 drp EACH EYE BID 02/20/21 [History Last Taken 04/22/21] ofloxacin 1 drp LEFT EYE BID 02/20/21 [History Last Taken 04/22/21] carvedilol [Coreg] 6.25 mg PO BID #60 tab 02/21/21 [Rx Last Taken 04/22/21] furosemide [Lasix] 40 mg PO BID #60 tab 02/21/21 [Rx Last Taken 04/22/21] cholecalciferol (vitamin D3) 25 mcg (1,000 unit) capsule 25 mcg PO DAILY 03/07/21 [History Last Taken 04/22/21] Allergy/AdvReac Type Severity Reaction Status Date / Time levofloxacin [Levofloxacin] Allergy Hives Verified 04/22/21 18:40 sacubitril [From Entresto] Allergy itching Verified 04/22/21 18:40 valsartan [From Entresto] Allergy itching Verified 04/22/21 18:40 warfarin [From Coumadin] Allergy Other Verified 04/22/21 18:40 torsemide [From Demadex] AdvReac Intermediate Rash Verified 04/22/21 18:40 Family History Father CVA (cerebral vascular accident) Mother Cancer bone Sister Cancer bone Diabetes Surgical History (Updated 04/22/21 @ 18:46 by Reuben Valdez) AICD (automatic cardioverter/defibrillator) present History of bilateral hip replacements History of bilateral knee replacement History of cataract surgery History of embolic filter insertion History of heart valve replacement History of hysterectomy History of mitral valve replacement with porcine valve Social History Smoking Status: Never smoker second hand exposure: No alcohol intake: never substance use type: does not use caffeine: No ROS Constitutional Constitutional: Denies chills, fatigue, fever(s) or malaise Eyes Eyes: Denies blurry vision ENT HEENT: Denies headache(s) or nasal discharge Cardiovascular Cardiovascular: Reports dizziness; Denies chest pain, dyspnea on exertion or syncope Respiratory/Chest Respiratory/Chest: Reports shortness of breath at rest; Denies cough or shortness of breath with exertion Gastrointestinal Gastrointestinal: Denies constipation, diarrhea, nausea or vomiting Genitourinary Genitourinary: Denies dysuria Neurologic Neurologic: Denies focal weakness, numbness or tremor(s) Psychiatric Psychiatric: Denies anxiety or depression Vital Signs Vital Signs Vital Signs: 04/22/21 18:40 04/22/21 18:44 04/22/21 19:05 Temperature 98.5 F 98.5 F Temperature Source Oral Oral Pulse Rate 141 H 141 H 149 H Respiratory Rate 35 H 22 H 36 H Respiratory Effort Normal Respiratory Pattern Normal Blood Pressure 107/74 107/74 98/58 L Blood Pressure Mean 85 85 71 Pulse Ox 97 96 95 Oxygen Delivery Method Room Air Room Air Room Air Oxygen Flow Rate (L/min) 04/22/21 19:13 04/22/21 19:23 04/22/21 19:29 Temperature Temperature Source Pulse Rate 132 H 132 H 130 H Respiratory Rate 30 H 32 H 30 H Respiratory Effort Respiratory Pattern Blood Pressure 88/73 L 106/81 H 90/69 Blood Pressure Mean 78 89 76 Pulse Ox 94 95 94 Oxygen Delivery Method Nasal Cannula Nasal Cannula Nasal Cannula Oxygen Flow Rate (L/min) 93 2 2 04/22/21 19:33 04/22/21 19:40 04/22/21 20:06 Temperature 98.9 F Temperature Source Temporal Pulse Rate 117 H 110 H 101 H Respiratory Rate 35 H 29 H 32 H Respiratory Effort Respiratory Pattern Blood Pressure 84/66 L 101/57 L 92/64 Blood Pressure Mean 72 71 73 Pulse Ox 93 94 95 Oxygen Delivery Method Nasal Cannula Nasal Cannula Nasal Cannula Oxygen Flow Rate (L/min) 2 2 4 04/22/21 21:50 Temperature 98.0 F Temperature Source Temporal Pulse Rate 89 Respiratory Rate 23 H Respiratory Effort Respiratory Pattern Blood Pressure 95/55 L Blood Pressure Mean 68 Pulse Ox 92 Oxygen Delivery Method Nasal Cannula Oxygen Flow Rate (L/min) Weight Weight: 180 lb Body Mass Index (BMI) 25.8 Physical Exam Const alert, oriented x3 and no apparent distress General Appearance: cooperative HEENT normocephalic Mouth: dry mucous membranes Eyes PERRL, EOMs intact bilaterally and conjunctivae normal Neck supple and no JVD Resp normal respiratory effort, no retractions and no use of accessory muscles Auscultation: rales and diminished lung sounds; Negative for crackles, rhonchi or wheezes Cardio regular rate, regular rhythm, S1 normal heart sound, S2 normal heart sound and no murmurs GI soft to palpation, non-tender and non-distended; Negative for hepatosplenomegaly Extremity General Extremity: edema bilateral lower extremity Details: trace; Negative for clubbing or cyanosis Skin no rashes or lesions noted Neuro no focal motor deficits and no sensory deficits noted Psych affect normal Appearance: appropriate Results Lab / Micro Data Result Diagrams: 04/22/21 18:46 04/22/21 18:46 Labs: Laboratory Results - last 24 hr 04/22/21 18:46: WBC 16.9 H, RBC 3.81 L, Hgb 12.7, Hct 38.7, MCV 101.6 H, MCH 33.3 H, MCHC 32.8, RDW Std Deviation 59.3 H, RDW Coeff of Jackie 15.9 H, Plt Count 257, MPV 10.0, Immature Gran % (Auto) 0.700, Neut % (Auto) 86.4 H, Lymph % (Auto) 4.4 L, [place] % (Auto) 7.2, Eos % (Auto) 0.9, Baso % (Auto) 0.4, Absolute Neuts (auto) 14.6 H, Absolute Lymphs (auto) 0.74 L, Nucleated RBC % 0 04/22/21 18:46: Sodium 137, Potassium 4.5, Chloride 103, Carbon Dioxide 22.0, Anion Gap 12, BUN 30 H, Creatinine 1.50 H, Estim Creat Clear Calc 32.89, Est GFR (MDRD) Af Amer 43 L, Est GFR (MDRD) Non-Af 36 L, BUN/Creatinine Ratio 20.0, Glucose 167 H, Calcium 9.3, Troponin I High Sens 71 H 04/22/21 18:46: B-Natriuretic Peptide 1048.6 H Micro: Microbiology 04/22/21 19:03 Nasal Secretion SARS-CoV-2 Antigen (Rapid) - Final Radiology Impression Chest X-Ray 04/22/21 19:06 IMPRESSION: Bilateral airspace opacities may represent edema and/or infection. Electronically Signed: Severiano Su MD at 19:36 EDT Tel , Service support , Assessment & Plan Assessment/Plan (1) Cardiac dysrhythmia: QUALIFIERS: Arrhythmia type: atrial fibrillation Atrial fibrillation type: persistent Qualified Code(s): I48.1 - Persistent atrial fibrillation (2) Leukocytosis: QUALIFIERS: Leukocytosis type: unspecified Qualified Code(s): D72.829 - Elevated white blood cell count, unspecified (3) CKD (chronic kidney disease): (4) Cardiomyopathy: QUALIFIERS: Cardiomyopathy type: unspecified Qualified Code(s): I42.9 - Cardiomyopathy, unspecified PLAN: 1. Possible flash pulmonary edema secondary to tachycardia and cardiac dysrhythmia/ischemic cardiomyopathy/chronic systolic CHF/pulmonary hypertension/HTN/HLD/recent history of endocarditis -She developed shortness of breath and pulmonary lung markings bilaterally after having a period of tachycardia -Heart rate resolved on its own and blood pressure stable -Chest x-ray is consistent with likely pulmonary edema from her tachycardia in the setting of such a severely reduced EF of 15% -Given her low blood pressure, will hold her evening medications but restart her Lasix and her blood pressure medications in the morning -We will check a Covid PCR just to be on the safe side that she has vaccinated -We will consult cardiology for evaluation and assistance, she did have an echo this year in February so I do not feel it is necessary to repeat currently -Had a 30-minute discussion on advanced care planning specifically in regards to palliative care and hospice given how severely depressed her EF is, both she and her do appear open to the discussion of palliative care and hospice -Continue with her amiodarone, amoxicillin, Eliquis, and aspirin 2. Hypothyroidism -Stable -Continue with Synthroid 3. Anxiety depression -Stable -Continue with amitriptyline and citalopram 4. CKD 3B -Creatinine is stable, will continue to monitor DVT: Michael Charges/Coding Visit Charges Inpatient E&M: 62910 Init Hosp L3 Procedures Hospitalists Procedures: 47096 Advncd Care Plan 30 Min
[2021-04-22 23:48] LABS: Lactic Acid 1.2 mmol/L (0.4-1.9)
[2021-04-22] MEDS: Pravastatin 40 MG Tablet PO (23:48)
[2021-04-22] MEDS: Levothyroxine 88 MCG Tablet PO (23:48)
[2021-04-22] MEDS: Gabapentin 100 MG Capsule PO (23:49)
[2021-04-22] MEDS: APIXABAN 2.5 MG TABLET PO (23:49)
[2021-04-22] MEDS: Amitriptyline 25 MG Tablet 50 MG PO (23:49)
[2021-04-22] MEDS: BRIMONIDINE 0.2% 5ML BOTTLE 1 DRP EACH EYE (23:49)
[2021-04-23] VITALS: BP 121/75; PULSE 85; RESP 26; TEMP 36.6; O2SAT 95
[2021-04-23 01:00] VITALS: BP 120/80; PULSE 84; RESP 27; TEMP 36.6; O2SAT 90
[2021-04-23 02:00] VITALS: BP 113/73; PULSE 85; RESP 25; TEMP 36.6; O2SAT 98
[2021-04-23 04:00] VITALS: BP 106/78; PULSE 82; RESP 24; TEMP 36.1; O2SAT 99
[2021-04-23 07:53] LABS: Absolute Lymphocyte Count 0.87 X10^3/uL (0.83-4.51); Absolute Neutrophil Count 9.3 X10^3/uL (2.0-7.7); Basophil# 0.05 X10^3/uL; Basophil% 0.4 % (0-1); Eosinophil# 0.21 X10^3/uL; Eosinophils% 1.8 % (0-5); Hematocrit 37.8 % (37-47); Hemoglobin 12.1 g/dL (12.0-15.0); Lymphocyte # 0.87 X10^3/ul (0.83-4.51); Lymphocyte % 7.5 % (19-41); Mean Corpuscular Hgb 32.9 pg (27.0-32.0); Mean Corpuscular Volume 102.7 fL (81-99); Mean Platelet Vol. 10.1 fl (6.2-12.0); Monocyte# 1.12 X10^3/uL; Monocyte% 9.7 % (0-10); NRBC Flagged by Analyzer 0 % (0-5); Neutrophil # 9.29 X10^3/uL (2.7-7.7); Neutrophil % 80.1 % (47-70); Platelet Count 192 K/mm3 (150-450); RBC Distribution Width CV 15.9 % (11.6-14.6); RBC Distribution Width SD 60.8 fl (35.1-43.9); Red Blood Count 3.68 M/mm3 (4.2-5.4); White Blood Count 11.6 K/mm3 (4.4-11.0)
[2021-04-23 08:00] VITALS: BP 113/66; PULSE 81; RESP 27; TEMP 36.6; O2SAT 94
--- NOTE | 2021-04-23 08:15 | PCM.PN.HOSP ---
Objective Data Objective Data Vital Signs: Vital Signs Temp Pulse Resp BP Pulse Ox 97.0 F L 82 24 H 106/78 99 04/23/21 04:00 04/23/21 04:00 04/23/21 04:00 04/23/21 04:00 04/23/21 04:00 Oxygen Flow Rate (L/min) 3 Oxygen Delivery Method Nasal Cannula Weight: 180 lb Body Mass Index (BMI) 25.8 Intake & Output: Intake and Output for Last 24 Hours 04/21/21 04/22/21 04/23/21 23:59 23:59 23:59 Intake Total 716.45 / 716.45 150 / 150 Output Total 300 / 300 Balance 716.45 / 716.45 -150 / -150 Lab / Micro Data Result Diagrams: 04/23/21 07:16 04/22/21 18:46 Labs: Laboratory Results - last 24 hr 04/22/21 18:46: WBC 16.9 H, RBC 3.81 L, Hgb 12.7, Hct 38.7, MCV 101.6 H, MCH 33.3 H, MCHC 32.8, RDW Std Deviation 59.3 H, RDW Coeff of Jackie 15.9 H, Plt Count 257, MPV 10.0, Immature Gran % (Auto) 0.700, Neut % (Auto) 86.4 H, Lymph % (Auto) 4.4 L, [place] % (Auto) 7.2, Eos % (Auto) 0.9, Baso % (Auto) 0.4, Absolute Neuts (auto) 14.6 H, Absolute Lymphs (auto) 0.74 L, Nucleated RBC % 0 04/22/21 18:46: Sodium 137, Potassium 4.5, Chloride 103, Carbon Dioxide 22.0, Anion Gap 12, BUN 30 H, Creatinine 1.50 H, Estim Creat Clear Calc 32.89, Est GFR (MDRD) Af Amer 43 L, Est GFR (MDRD) Non-Af 36 L, BUN/Creatinine Ratio 20.0, Glucose 167 H, Calcium 9.3, Troponin I High Sens 71 H 04/22/21 18:46: B-Natriuretic Peptide 1048.6 H 04/22/21 23:10: Lactic Acid 1.2 04/23/21 07:16: WBC 11.6 H, RBC 3.68 L, Hgb 12.1, Hct 37.8, MCV 102.7 H, MCH 32.9 H, MCHC 32.0, RDW Std Deviation 60.8 H, RDW Coeff of Jackie 15.9 H, Plt Count 192, MPV 10.1, Immature Gran % (Auto) 0.500, Neut % (Auto) 80.1 H, Lymph % (Auto) 7.5 L, [place] % (Auto) 9.7, Eos % (Auto) 1.8, Baso % (Auto) 0.4, Absolute Neuts (auto) 9.3 H, Absolute Lymphs (auto) 0.87, Nucleated RBC % 0 Micro: Microbiology 04/22/21 19:03 Nasal Secretion SARS-CoV-2 Antigen (Rapid) - Final Radiography Diagnostic Testing: Radiology Impression Chest X-Ray 04/22/21 19:06 IMPRESSION: Bilateral airspace opacities may represent edema and/or infection. Electronically Signed: Severiano Su MD at 19:36 EDT Tel , Service support , Assessment & Plan Assessment/Plan (1) Cardiac dysrhythmia: QUALIFIERS: Arrhythmia type: atrial fibrillation Atrial fibrillation type: persistent Qualified Code(s): I48.1 - Persistent atrial fibrillation (2) Leukocytosis: QUALIFIERS: Leukocytosis type: unspecified Qualified Code(s): D72.829 - Elevated white blood cell count, unspecified (3) CKD (chronic kidney disease): (4) Cardiomyopathy: QUALIFIERS: Cardiomyopathy type: unspecified Qualified Code(s): I42.9 - Cardiomyopathy, unspecified PLAN: 1. Possible flash pulmonary edema secondary to tachycardia and cardiac dysrhythmia/ischemic cardiomyopathy/chronic systolic CHF/pulmonary hypertension/HTN/HLD/recent history of endocarditis -She developed shortness of breath and pulmonary lung markings bilaterally after having a period of tachycardia -Heart rate resolved on its own and blood pressure stable -Chest x-ray is consistent with likely pulmonary edema from her tachycardia in the setting of such a severely reduced EF of 15% -Given her low blood pressure, will hold her evening medications but restart her Lasix and her blood pressure medications in the morning -We will check a Covid PCR just to be on the safe side that she has vaccinated -We will consult cardiology for evaluation and assistance, she did have an echo this year in February so I do not feel it is necessary to repeat currently -Had a 30-minute discussion on advanced care planning specifically in regards to palliative care and hospice given how severely depressed her EF is, both she and her do appear open to the discussion of palliative care and hospice -Continue with her amiodarone, amoxicillin, Eliquis, and aspirin 2. Hypothyroidism -Stable -Continue with Synthroid 3. Anxiety depression -Stable -Continue with amitriptyline and citalopram 4. CKD 3B -Creatinine is stable, will continue to monitor DVT: Michael
[2021-04-23] MEDS: Amiodarone 200 MG Tablet PO (08:17)
[2021-04-23] MEDS: AMOXICILLIN 500 MG CAPSULE PO (08:17)
[2021-04-23] MEDS: Citalopram 20 MG Tablet PO (08:17)
[2021-04-23] MEDS: Cholecalciferol (VIT D3) 25 MCG TABLET (1,000 UNITS) PO (08:17)
[2021-04-23] MEDS: Aspirin 81 MG TAB.CHEW PO (08:17)
[2021-04-23] MEDS: Carvedilol 6.25 MG Tablet PO (08:17)
[2021-04-23 08:18] LABS: Anion Gap 8 (5-15); BUN 26 mg/dL (7-18); BUN/Creat Ratio 22.6 RATIO (10-20); Calcium,Total 8.5 mg/dL (8.5-10.1); Chloride 106 mmol/L (98-107); Creatinine, Serum 1.15 mg/dL (0.55-1.02); EST Glomerular Filtration Rate 48 mL/min (>60); Est Glom Filt Rate - Afr Amer 59 mL/min (>60); Glucose 86 mg/dL (74-106); Sodium Level 137 mmol/L (136-145)
[2021-04-23] MEDS: APIXABAN 2.5 MG TABLET PO (08:18)
[2021-04-23] MEDS: Furosemide 40 MG Tablet PO (08:18)
[2021-04-23] MEDS: Hydrocortisone 10 MG Tablet 5 MG PO (08:18)
[2021-04-23] MEDS: BRIMONIDINE 0.2% 5ML BOTTLE 1 DRP EACH EYE (08:19)
--- NOTE | 2021-04-23 08:30 | CPS ---
Patient on 3lpm nasal cannula, unable to obtain quality waveform on pulse ox. Nail beds and lips slightly cyanotic, O2 flow increased to 4lpm, RN aware.
--- NOTE | 2021-04-23 11:03 | PCM.DC ---
Discharge Instructions Diet Discharge Diet: No restrictions and 2000 mg Sodium Diet Activity Discharge Activity: May Not Drive Weight Bearing Status: Weight bearing as tolerated Dressing / Incision Call your doctor if you observe: - (Hospice care at home) Follow Up Care Test Results: Test results from this visit will be discussed in further detail at your follow-up appointment, if applicable. Discharge Plan Admission Admit Date/Time: 04/22/21 21:49 Primary Reason for Your Visit: Pulm edema Attending Provider: Willie Key Primary Care Provider: Minerva Martin Discharge Orders/Prescriptions Prescriptions: Continued albuterol sulfate [ProAir HFA] 90 mcg/actuation HFA aerosol inhaler 2 puff INHALATION BID PRN (Reason: Sob &/Or Wheezing) RF: 0 gabapentin 100 mg capsule 100 mg PO QHS RF: 0 amitriptyline 50 mg tablet 50 mg PO QHS RF: 0 amoxicillin 500 mg tablet 500 mg PO DAILY RF: 0 lidocaine 5 % adhesive patch,medicated 1 patch topical DAILY@1100 PRN (Reason: Pain) RF: 0 hydrocortisone 5 mg tablet 5 mg PO DAILY RF: 0 magnesium oxide 400 mg (241.3 mg magnesium) tablet 400 mg PO .QODAY Qty: 30 RF: 0 cholecalciferol (vitamin D3) 25 mcg (1,000 unit) capsule 25 mcg PO DAILY RF: 0 Eliquis 2.5 mg tablet 2.5 mg PO BID RF: 0 ascorbate calcium (vitamin C) 500 mg tablet 500 mg PO DAILY RF: 0 omega-3 fatty acids [Fish Oil Concentrate] 1,000 mg capsule 1,000 mg PO DAILY RF: 0 vitamin E mixed 1,000 unit capsule 1,000 unit PO DAILY RF: 0 pravastatin 40 MG tablet 40 mg PO QHS RF: 0 multivitamin with folic acid 1 TABLET tablet 1 tab PO DAILY RF: 0 levothyroxine 88 MCG tablet 88 mcg PO QHS RF: 0 aspirin 81 MG tablet,chewable 81 mg PO DAILY@0800 RF: 0 citalopram 20 MG tablet 20 mg PO DAILY RF: 0 amiodarone 200 MG tablet 200 mg PO DAILY RF: 0 ofloxacin 0.3 % drops 1 drp LEFT EYE BID RF: 0 brimonidine 0.2 % drops 1 drp EACH EYE BID RF: 0 carvedilol [Coreg] 6.25 mg tablet 6.25 mg PO BID Qty: 60 RF: 0 furosemide [Lasix] 40 mg tablet 40 mg PO BID Qty: 60 RF: 0 potassium chloride 20 mEq tablet extended release 20 meq PO .every third day Qty: 30 RF: 3 Hold Instructions: hyperkalemia Referrals / Follow Up: Minerva Martin MD [Primary Care Provider] - Disposition Disposition (needs filled in before D/C Order can be placed): Hospice in Home
--- NOTE | 2021-04-23 11:08 | DS.PCM_ITS ---
Providers Date of Admission: 04/22/21 Primary Care Physician: Dr. Minerva Martin MD Reason For Visit: PULMONARY EDEMA Diagnosis Discharge Diagnosis (1) Cardiac dysrhythmia: Status: Chronic Code(s): I49.9 - Cardiac arrhythmia, unspecified Qualifiers: Arrhythmia type: atrial fibrillation Atrial fibrillation type: persistent Qualified Code(s): I48.1 - Persistent atrial fibrillation (2) Leukocytosis: Status: Acute Code(s): D72.829 - Elevated white blood cell count, unspecified Qualifiers: Leukocytosis type: unspecified Qualified Code(s): D72.829 - Elevated white blood cell count, unspecified (3) CKD (chronic kidney disease): Status: Chronic Code(s): N18.9 - Chronic kidney disease, unspecified (4) Cardiomyopathy: Status: Acute Code(s): I42.9 - Cardiomyopathy, unspecified Qualifiers: Cardiomyopathy type: unspecified Qualified Code(s): I42.9 - Cardiomyopathy, unspecified Medications at Discharge Home Medications multivitamin with folic acid 1 tab PO DAILY 11/16/15 albuterol sulfate 90 mcg/actuation aerosol inhaler 2 puff INHALATION BID PRN 09/10/17 pravastatin 40 mg tablet 40 mg PO QHS tab 09/11/17 levothyroxine 88 mcg PO QHS 06/22/18 gabapentin 100 mg capsule 100 mg PO QHS cap 07/15/18 aspirin 81 mg PO DAILY@0800 09/07/18 amitriptyline 50 mg tablet 50 mg PO QHS 10/15/18 citalopram 20 mg PO DAILY 08/13/19 amiodarone 200 mg PO DAILY tab 09/28/19 magnesium oxide 400 mg (241.3 mg magnesium) tablet 400 mg PO .QODAY #30 tab 12/08/19 amoxicillin 500 mg tablet 500 mg PO DAILY tab 02/02/20 lidocaine 5 % topical patch 1 patch TOPICAL DAILY@1100 PRN patch 02/02/20 apixaban 2.5 mg tablet 2.5 mg PO BID 09/04/20 ascorbate calcium (vitamin C) 500 mg tablet 500 mg PO DAILY 11/08/20 hydrocortisone 5 mg tablet 5 mg PO DAILY 11/08/20 omega-3 fatty acids 1,000 mg capsule 1,000 mg PO DAILY 11/08/20 vitamin E mixed 1,000 unit capsule 1,000 unit PO DAILY 11/08/20 potassium chloride 20 mEq tablet,extended release 20 meq PO .every third day #30 tab 02/05/21 brimonidine 1 drp EACH EYE BID 02/20/21 ofloxacin 1 drp LEFT EYE BID 02/20/21 carvedilol [Coreg] 6.25 mg PO BID #60 tab 02/21/21 furosemide [Lasix] 40 mg PO BID #60 tab 02/21/21 cholecalciferol (vitamin D3) 25 mcg (1,000 unit) capsule 25 mcg PO DAILY 03/07/21 Hospital Course Summary of Care Provided Hospital Course: This is 81-year-old female who has protracted history of nonischemic cardiomyopathy with EF 15%, status post ICD pacemaker, chronic kidney disease patient of Dr. Huang was admitted with generalized weakness, dyspnea at rest, chronic hypoxia, on baseline 2 L of oxygen in the ER. Patient also has history of valvular heart disease and endocarditis 3 years ago and is on amoxicillin. Patient also history of A. fib on Eliquis. Chest x-ray shows pulmonary edema. Patient was admitted as PCU status in ER. I discussed with Dr. Huang and says patient has valvular heart disease and nonischemic cardiac failure. And also had AICD checkup as she was complaining her heart rate sometimes slow and sometimes very fast. Twelve-lead EKG shows sinus rhythm with chronic left bundle branch block. She pacemaker checkup. Last echo in February 2021 shows severely dilated LV, EF 20%, LA moderately enlarged, bioprosthetic mitral valve apparatus, moderate MR, mild TR and RVSP 46 mmHg. I talked to the patient and she states she has poor quality of life and want palliative and hospice care. Subsequently hospice care was called and patient selected home hospice. Arrangement was made for home hospice and patient discharged home. Follow with PCP. Discharge medication reconciliation done. Discharge follow-up instructions completed. Discharge process discussed with the patient and all questions were answered to patient's satisfaction. Total time spent, exact 35 minutes on discharge meds reconciliation, examination, coordination of care with nurses and ancillary staff, review of imaging and blood test and discussion with the patient on follow-up instructions Clinical Impression(s) from Imaging Studies Chest X-Ray 04/22/21 19:06 IMPRESSION: Bilateral airspace opacities may represent edema and/or infection. Physical Exam Narrative Seen and examined Patient is in respiratory distress. Dyspnea at rest. Denies chest pain. Patient had morphine given in ED General: Awake. In distress due to dyspnea. HEENT: Atraumatic, PERRLA, EOMI, Normocephalic Oral: No Gingival or Mucosal Lesions/ Ulcerations Neck: Supple, No JVD, Negative Carotid Bruits Lungs: Air entry diminished in bilateral lung bases. No crepitation/rhonchi Cardiovascular: Sinus, systolic murmur over cardiac apex and LLSB. Left subclavicular ICD Abdomen: Bowel Sounds Present, Soft, Non Tender, Non-Distended : No renal angle tenderness. No suprapubic tenderness. Extremities: Bilateral leg pitting edema, Capillary Refill Less than 3 Seconds Skin: No rashes, No breakdown Musculoskeletal: No Tenderness to Palpation of Joints or Extremities Neurological: Cranial nerves II-XII grossly intact, DTR 2+/4 and Symmetrical, Neuro grossly intact Psych/Mental Status: flat affect Weight / BMI Weight Weight: 180 lb Body Mass Index (BMI) 25.8 ABG / Lab / Microbiology Data Result Diagrams: 04/23/21 07:16 04/23/21 07:16 Laboratory: Laboratory Results - last 24 hr 04/22/21 18:46: WBC 16.9 H, RBC 3.81 L, Hgb 12.7, Hct 38.7, MCV 101.6 H, MCH 33.3 H, MCHC 32.8, RDW Std Deviation 59.3 H, RDW Coeff of Jackie 15.9 H, Plt Count 257, MPV 10.0, Immature Gran % (Auto) 0.700, Neut % (Auto) 86.4 H, Lymph % (Auto) 4.4 L, Stoddard % (Auto) 7.2, Eos % (Auto) 0.9, Baso % (Auto) 0.4, Absolute Neuts (auto) 14.6 H, Absolute Lymphs (auto) 0.74 L, Nucleated RBC % 0 04/22/21 18:46: Sodium 137, Potassium 4.5, Chloride 103, Carbon Dioxide 22.0, Anion Gap 12, BUN 30 H, Creatinine 1.50 H, Estim Creat Clear Calc 32.89, Est GFR (MDRD) Af Amer 43 L, Est GFR (MDRD) Non-Af 36 L, BUN/Creatinine Ratio 20.0, Glucose 167 H, Calcium 9.3, Troponin I High Sens 71 H 04/22/21 18:46: B-Natriuretic Peptide 1048.6 H 04/22/21 23:10: Lactic Acid 1.2 04/23/21 07:16: WBC 11.6 H, RBC 3.68 L, Hgb 12.1, Hct 37.8, MCV 102.7 H, MCH 32.9 H, MCHC 32.0, RDW Std Deviation 60.8 H, RDW Coeff of Jackie 15.9 H, Plt Count 192, MPV 10.1, Immature Gran % (Auto) 0.500, Neut % (Auto) 80.1 H, Lymph % (Auto) 7.5 L, Stoddard % (Auto) 9.7, Eos % (Auto) 1.8, Baso % (Auto) 0.4, Absolute Neuts (auto) 9.3 H, Absolute Lymphs (auto) 0.87, Nucleated RBC % 0 04/23/21 07:16: Sodium 137, Potassium 4.0, Chloride 106, Carbon Dioxide 23.0, Anion Gap 8, BUN 26 H, Creatinine 1.15 H, Estim Creat Clear Calc 42.90, Est GFR (MDRD) Af Amer 59 L, Est GFR (MDRD) Non-Af 48 L, BUN/Creatinine Ratio 22.6 H, Glucose 86, Calcium 8.5 Microbiology: Microbiology 04/22/21 19:03 Nasal Secretion SARS-CoV-2 Antigen (Rapid) - Final Radiography Diagnostic Testing: Radiology Impression Chest X-Ray 04/22/21 19:06 IMPRESSION: Bilateral airspace opacities may represent edema and/or infection. Electronically Signed: Severiano Su MD at 19:36 EDT Tel , Service support , D/C Instructions Discharge Diet: No restrictions and 2000 mg Sodium Diet Weight Bearing Status: Weight bearing as tolerated Call your doctor if you observe: - (Hospice care at home) Meaningful Use Info Meaningful Use Diagnoses (Choose all that apply): None applicable Discharge Plan Admission Admit Date/Time: 04/22/21 21:49 Primary Reason for Your Visit: Pulm edema Attending Provider: Willie Key Primary Care Provider: Minerva Martin Discharge Orders/Prescriptions Prescriptions: Continued albuterol sulfate [ProAir HFA] 90 mcg/actuation HFA aerosol inhaler 2 puff INHALATION BID PRN (Reason: Sob &/Or Wheezing) RF: 0 gabapentin 100 mg capsule 100 mg PO QHS RF: 0 amitriptyline 50 mg tablet 50 mg PO QHS RF: 0 amoxicillin 500 mg tablet 500 mg PO DAILY RF: 0 lidocaine 5 % adhesive patch,medicated 1 patch topical DAILY@1100 PRN (Reason: Pain) RF: 0 hydrocortisone 5 mg tablet 5 mg PO DAILY RF: 0 magnesium oxide 400 mg (241.3 mg magnesium) tablet 400 mg PO .QODAY Qty: 30 RF: 0 cholecalciferol (vitamin D3) 25 mcg (1,000 unit) capsule 25 mcg PO DAILY RF: 0 Eliquis 2.5 mg tablet 2.5 mg PO BID RF: 0 ascorbate calcium (vitamin C) 500 mg tablet 500 mg PO DAILY RF: 0 omega-3 fatty acids [Fish Oil Concentrate] 1,000 mg capsule 1,000 mg PO DAILY RF: 0 vitamin E mixed 1,000 unit capsule 1,000 unit PO DAILY RF: 0 pravastatin 40 MG tablet 40 mg PO QHS RF: 0 multivitamin with folic acid 1 TABLET tablet 1 tab PO DAILY RF: 0 levothyroxine 88 MCG tablet 88 mcg PO QHS RF: 0 aspirin 81 MG tablet,chewable 81 mg PO DAILY@0800 RF: 0 citalopram 20 MG tablet 20 mg PO DAILY RF: 0 amiodarone 200 MG tablet 200 mg PO DAILY RF: 0 ofloxacin 0.3 % drops 1 drp LEFT EYE BID RF: 0 brimonidine 0.2 % drops 1 drp EACH EYE BID RF: 0 carvedilol [Coreg] 6.25 mg tablet 6.25 mg PO BID Qty: 60 RF: 0 furosemide [Lasix] 40 mg tablet 40 mg PO BID Qty: 60 RF: 0 potassium chloride 20 mEq tablet extended release 20 meq PO .every third day Qty: 30 RF: 3 Hold Instructions: hyperkalemia Referrals / Follow Up: Minerva Martin MD [Primary Care Provider] - Disposition Disposition (needs filled in before D/C Order can be placed): Hospice in Home Charges/Coding Visit Charges Inpatient E&M: 55294 Disch Hosp
[2021-04-23] MEDS: Morphine 2 MG/ML Syringe IV (11:22)
--- NOTE | 2021-04-23 11:32 | CM.ED ---
[facility] Note: Referral from [facility] Reason for Referral : Hospice Referral SW met with Bryan from [facility]. She said that Patient had signed up for hospice. Bryan said that RN needs to call report to [facility]. Per Cathy, alumni secretary EMS will be here in an hour to transport patient home. No other social work needs at this time. [employer] Tender was updated. Plan: Home with [facility] Kori Tucker
== END 2021-04-23 12:00 | disposition hospice, home (50) | DRG 292 ==
LOC: ED 21:26 → PCU 04-23 02:30
PROVIDERS: Admitting Provider Family Medicine; Emergency Provider Emergency Medicine; PCP Internal Medicine; Visit Provider Internal Medicine
DX: I13.0 Hypertensive heart and chronic kidney disease with heart failure and stage 1 through stage 4 chronic kidney disease, or unspecified chronic kidney disease (principal); I50.22 Chronic systolic (congestive) heart failure; I48.19 Other persistent atrial fibrillation; N18.32 Chronic kidney disease, stage 3b; R00.0 Tachycardia, unspecified; I25.5 Ischemic cardiomyopathy; I27.20 Pulmonary hypertension, unspecified; Z20.822 Contact with and (suspected) exposure to COVID-19; I25.119 Atherosclerotic heart disease of native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 with unspecified angina pectoris; I25.10 Atherosclerotic heart disease of native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 without angina pectoris; E78.5 Hyperlipidemia, unspecified; E03.9 Hypothyroidism, unspecified; M19.011 Primary osteoarthritis, right shoulder; G47.33 Obstructive sleep apnea (adult) (pediatric); F32.9 Major depressive disorder, single episode, unspecified; F41.9 Anxiety disorder, unspecified; Z99.81 Dependence on supplemental oxygen; Z79.01 Long term (current) use of 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s; Z79.82 Long term (current) use of aspirin; Z79.2 Long term (current) use of antibiotics; Z79.890 Hormone replacement therapy; Z79.899 Other long term (current) drug therapy; Z86.73 Personal history of transient ischemic attack (TIA), and cerebral infarction without residual deficits; Z86.718 Personal history of other venous thrombosis and embolism; Z95.810 Presence of automatic (implantable) cardiac defibrillator; Z95.3 Presence of xenogenic heart valve; Z96.643 Presence of artificial hip joint, bilateral; Z96.653 Presence of artificial knee joint, bilateral
CPT/HCPCS: 36415; 71045; 80048; 83605; 83880; 84484; 85025; 87426; 93005; 99285; A4216